=== PATIENT | female | born 1990 | race American Indian/Alaskan Native ===

== ENCOUNTER 2018-10-17 14:27 | Emergency (ER) | payer SELFPAY ==
[2018-10-17 14:34] VITALS: BP 174/112
--- NOTE | 2018-10-17 14:41 | Emergency Department Report ---
- General Chief complaint: Skin/Abscess/Foreign Body Stated complaint: BITE ON STOMACH Time Seen by Provider: 10/17/18 14:35 Source: patient Mode of arrival: Ambulatory Limitations: No Limitations - History of Present Illness Initial comments: C/O POSSIBLE BITE TO ABDOMEN WHAT WAS RED AND NOW WORSENING. TENDER TO TOUCH. NO FEVER MD complaint: insect bite/sting, discoloration -: Gradual Tetanus Up to Date: no Location: generalized Severity: mild Quality: aching, dull Consistency: constant Improves with: none Worsens with: none Treatments Prior to Arrival: none - Related Data Home Medications Medication Instructions Recorded Confirmed Last Taken Acetaminophen/Codeine [Tylenol #3] 1 tab PO Q4HR PRN 11/03/13 11/03/13 Unknown Previous Rx's Medication Instructions Recorded Last Taken Type Nitrofurantoin Foster/M-Cryst 100 mg PO Q12HR 14 Days capsule 11/04/13 Unknown Rx [Macrobid] Ketorolac [Toradol] 10 mg PO Q6H PRN #15 tablet 10/17/18 Unknown Rx Sulfamethoxazole/Trimethoprim 2 each PO BID #40 tablet 10/17/18 Unknown Rx [Bactrim DS TAB] cephALEXin [Keflex] 500 mg PO Q6HR #40 capsule 10/17/18 Unknown Rx Allergies Allergy/AdvReac Type Severity Reaction Status Date / Time acetaminophen [From Percocet] AdvReac Swelling Verified 10/17/18 14:28 hydrocodone bitartrate AdvReac Swelling Verified 10/17/18 14:28 [From Vicodin] oxycodone HCl [From Percocet] AdvReac Swelling Verified 10/17/18 14:28 Abscess Boil HPI - HPI Chief Complaint: Skin/Abscess/Foreign Body Stated Complaint: BITE ON STOMACH Time Seen by Provider: 10/17/18 14:35 Home Medications: Home Medications Medication Instructions Recorded Confirmed Last Taken Acetaminophen/Codeine [Tylenol #3] 1 tab PO Q4HR PRN 11/03/13 11/03/13 Unknown Previous Rx's Medication Instructions Recorded Last Taken Type Nitrofurantoin Foster/M-Cryst 100 mg PO Q12HR 14 Days capsule 11/04/13 Unknown Rx [Macrobid] Ketorolac [Toradol] 10 mg PO Q6H PRN #15 tablet 10/17/18 Unknown Rx Sulfamethoxazole/Trimethoprim 2 each PO BID #40 tablet 10/17/18 Unknown Rx [Bactrim DS TAB] cephALEXin [Keflex] 500 mg PO Q6HR #40 capsule 10/17/18 Unknown Rx Allergies/Adverse Reactions: Allergies Allergy/AdvReac Type Severity Reaction Status Date / Time acetaminophen [From Percocet] AdvReac Swelling Verified 10/17/18 14:28 hydrocodone bitartrate AdvReac Swelling Verified 10/17/18 14:28 [From Vicodin] oxycodone HCl [From Percocet] AdvReac Swelling Verified 10/17/18 14:28 ED Review of Systems ROS: Stated complaint: BITE ON STOMACH Other details as noted in HPI Constitutional: denies: chills, fever Eyes: denies: eye pain, eye discharge, vision change ENT: denies: ear pain, throat pain Respiratory: denies: cough, shortness of breath, wheezing Cardiovascular: denies: chest pain, palpitations Endocrine: no symptoms reported Gastrointestinal: denies: abdominal pain, nausea, diarrhea Genitourinary: denies: urgency, dysuria, discharge Musculoskeletal: denies: back pain, joint swelling, arthralgia Skin: change in color. denies: rash, lesions Neurological: denies: headache, weakness, paresthesias Psychiatric: denies: anxiety, depression Hematological/Lymphatic: denies: easy bleeding, easy bruising ED Past Medical Hx - Past Medical History Hx Psychiatric Treatment: Yes (Anxiety) Hx Asthma: Yes Additional medical history: Crohn's disease - Surgical History Past Surgical History?: No - Social History Smoking Status: Never Smoker Substance Use Type: None - Medications Home Medications: Home Medications Medication Instructions Recorded Confirmed Last Taken Type Acetaminophen/Codeine [Tylenol #3] 1 tab PO Q4HR PRN 11/03/13 11/03/13 Unknown History Nitrofurantoin Foster/M-Cryst 100 mg PO Q12HR 14 Days capsule 11/04/13 Unknown Rx [Macrobid] Ketorolac [Toradol] 10 mg PO Q6H PRN #15 tablet 10/17/18 Unknown Rx Sulfamethoxazole/Trimethoprim 2 each PO BID #40 tablet 10/17/18 Unknown Rx [Bactrim DS TAB] cephALEXin [Keflex] 500 mg PO Q6HR #40 capsule 10/17/18 Unknown Rx ED Physical Exam - General Limitations: No Limitations General appearance: alert, in no apparent distress - Head Head exam: Present: atraumatic, normocephalic - Eye Eye exam: Present: normal appearance - ENT ENT exam: Present: mucous membranes moist - Neck Neck exam: Present: normal inspection - Respiratory Respiratory exam: Present: normal lung sounds bilaterally. Absent: respiratory distress - Cardiovascular Cardiovascular Exam: Present: regular rate, normal rhythm. Absent: systolic murmur, diastolic murmur, rubs, gallop - GI/Abdominal GI/Abdominal exam: Present: soft, normal bowel sounds - Extremities Exam Extremities exam: Present: normal inspection - Back Exam Back exam: Present: normal inspection - Neurological Exam Neurological exam: Present: alert, oriented X3, CN II-XII intact - Psychiatric Psychiatric exam: Present: normal affect, normal mood - Skin Skin exam: Present: warm, dry, intact, erythema, other (NO LAD NOTED. NO DISCHARGE). Absent: rash - Expanded Skin Exam Expanded Description of rash: Present: tenderness, erythematous, swelling. Absent: blisters, bullous, petechial, discharge, fluctuant, indurated 1 - CELLULITIS. NO LYMPHANGITIS. NO FLUCUTANCE. NO ABSCESS NOTED ED Course Vital Signs 10/17/18 14:32 Temperature 98.5 F Pulse Rate 101 H Respiratory 16 Rate Blood Pressure 174/112 [Left] O2 Sat by Pulse 99 Oximetry Critical care attestation.: If time is entered above; I have spent that time in minutes in the direct care of this critically ill patient, excluding procedure time. ED Disposition Clinical Impression: Abdominal wall cellulitis Disposition: DC-01 TO HOME OR SELFCARE Is pt being admited?: No Does the pt Need Aspirin: No Condition: Stable Instructions: Cellulitis (ED) Prescriptions: Sulfamethoxazole/Trimethoprim [Bactrim DS TAB] 2 each PO BID #40 tablet cephALEXin [Keflex] 500 mg PO Q6HR #40 capsule Ketorolac [Toradol] 10 mg PO Q6H PRN #15 tablet PRN Reason: Pain Referrals: [facility] [Provider Group] - 2-3 Days (WOUND RECHECK IN 48 HOURS)
== END 2018-10-17 15:02 | disposition home or self-care (01) ==
LOC: ED 14:27
DX: L03.311 Cellulitis of abdominal wall (principal); J45.909 Unspecified asthma, uncomplicated; F41.9 Anxiety disorder, unspecified; K50.90 Crohn's disease, unspecified, without complications; Z79.899 Other long term (current) drug therapy; Z88.1 Allergy status to other antibiotic agents; Z88.6 Allergy status to analgesic agent
CPT/HCPCS: 99282

== ENCOUNTER 2018-10-19 23:15 | Emergency (ER) | payer SELFPAY ==
[2018-10-20] MEDS ORDERED: MORPHINE IV ONE (00:50)
[2018-10-20] MEDS ORDERED: CLEOCIN 900 MG/50 mL 900 MG/50 ML BAG IV ONE (00:50)
[2018-10-20] MEDS ORDERED: ZOFRAN IV ONE (00:51)
[2018-10-20 01:35] LABS: Hematocrit 33.7 % (30.3-42.9); Hemoglobin 11.1 gm/dl (10.1-14.3); Mean Corpuscular HGB Conc 33 % (30-34); Mean Corpuscular Volume 83 fl (79-97); Platelet Count 216 K/mm3 (140-440); Red Blood Count 4.04 M/mm3 (3.65-5.03); Red Cell Distribution Width 15.4 % (13.2-15.2)
[2018-10-20 02:13] LABS: Alanine Aminotransferase 14 units/L (7-56); Albumin 3.6 g/dL (3.9-5); BUN/Creatinine Ratio 9; Blood Urea Nitrogen 10 mg/dL (7-17); Calcium 9.3 mg/dL (8.4-10.2); Hemolysis Index 1
--- NOTE | 2018-10-20 03:50 | Emergency Department Report ---
ED General Adult HPI - General Chief complaint: Laceration/Recheck/Suture Stated complaint: BITE ON STOMACH BLEEDING Time Seen by Provider: 10/20/18 00:40 Source: patient Mode of arrival: Ambulatory Limitations: No Limitations - History of Present Illness Initial comments: Patient is a 28-year-old -[place]ish female with a history of chronic obesity and Crohn's disease who presents to the ED with acute onset of persistent pain and swollen erythematous maculopapular nonfluctuant periumbilical rash with purulent discharge from the last week. Patient was initially evaluated in this lady is ago and started on Bactrim DS and Keflex. Patient states that the pain, swelling and redness has spread from the regional small bowel maculopapular rash. Patient states that there began to drain the purulent discharge with malodorous smell about 12 hours ago. Patient states that she has not had any fever, chills, nausea, vomiting, dizziness, headache, chest pain, diarrhea, abdominal pain and shortness of breath. MD Complaint: erythematous rash on abdominal wall with purulent discharge -: Sudden, week(s) (1) Location: abdomen Radiation: periumbillical Severity scale (0 -10): 7 Quality: burning, aching, sharp, constant Consistency: constant Improves with: none Worsens with: none Associated Symptoms: denies other symptoms, malaise, rash. denies: confusion, chest pain, cough, diaphoresis, headaches, loss of appetite, nausea/vomiting, seizure, shortness of breath, syncope, weakness Treatments Prior to Arrival: none - Related Data Previous Rx's Medication Instructions Recorded Last Taken Type Nitrofurantoin Jay/M-Cryst 100 mg PO Q12HR 14 Days capsule 11/04/13 Unknown Rx [Macrobid] Ketorolac [Toradol] 10 mg PO Q6H PRN #15 tablet 10/17/18 Unknown Rx Sulfamethoxazole/Trimethoprim 2 each PO BID #40 tablet 10/17/18 Unknown Rx [Bactrim DS TAB] cephALEXin [Keflex] 500 mg PO Q6HR #40 capsule 10/17/18 Unknown Rx Acetaminophen/Codeine [Tylenol 1 tab PO Q4HR PRN #15 tablet 10/20/18 Unknown Rx /Codeine # 3 tab] Clindamycin [Clindamycin CAP] 300 mg PO Q8HR #60 capsule 10/20/18 Unknown Rx Fluconazole [Diflucan TAB] 150 mg PO ONCE #1 tablet 10/20/18 Unknown Rx Ibuprofen [Motrin] 800 mg PO Q8HR PRN #20 tablet 10/20/18 Unknown Rx Allergies Allergy/AdvReac Type Severity Reaction Status Date / Time acetaminophen [From Percocet] AdvReac Swelling Verified 10/17/18 14:28 hydrocodone bitartrate AdvReac Swelling Verified 10/17/18 14:28 [From Vicodin] oxycodone HCl [From Percocet] AdvReac Swelling Verified 10/17/18 14:28 ED Review of Systems ROS: Stated complaint: BITE ON STOMACH BLEEDING Other details as noted in HPI Comment: All other systems reviewed and negative Constitutional: denies: chills, fever, malaise, weakness Eyes: denies: eye pain, eye discharge, vision change ENT: denies: ear pain, throat pain, dental pain, hearing loss, congestion Respiratory: denies: cough, shortness of breath, SOB with exertion, wheezing Cardiovascular: denies: chest pain, palpitations Endocrine: no symptoms reported Gastrointestinal: abdominal pain (abdominal wall due to erythematous rash with purulent discharge). denies: nausea, diarrhea, hematemesis, hematochezia Genitourinary: denies: urgency, dysuria, frequency, discharge Musculoskeletal: denies: back pain, joint swelling, arthralgia Skin: rash (erythematous maculopapular nonfluctuant rash on abdominal wall in periumbilical area), change in color (erythematous maculopapular nonfluctuant rash with purulent discharge), pruritus. denies: lesions Neurological: denies: headache, weakness, paresthesias Psychiatric: denies: anxiety, depression Hematological/Lymphatic: denies: easy bleeding, easy bruising ED Past Medical Hx - Past Medical History Previous Medical History?: Yes Hx Psychiatric Treatment: Yes (Anxiety) Hx Asthma: Yes Additional medical history: Crohn's disease, Morbid Obesity - Surgical History Past Surgical History?: No - Social History Smoking Status: Never Smoker Substance Use Type: None - Medications Home Medications: Home Medications Medication Instructions Recorded Confirmed Last Taken Type Nitrofurantoin Jay/M-Cryst 100 mg PO Q12HR 14 Days capsule 11/04/13 Unknown Rx [Macrobid] Ketorolac [Toradol] 10 mg PO Q6H PRN #15 tablet 10/17/18 Unknown Rx Sulfamethoxazole/Trimethoprim 2 each PO BID #40 tablet 10/17/18 Unknown Rx [Bactrim DS TAB] cephALEXin [Keflex] 500 mg PO Q6HR #40 capsule 10/17/18 Unknown Rx Acetaminophen/Codeine [Tylenol 1 tab PO Q4HR PRN #15 tablet 10/20/18 Unknown Rx /Codeine # 3 tab] Clindamycin [Clindamycin CAP] 300 mg PO Q8HR #60 capsule 10/20/18 Unknown Rx Fluconazole [Diflucan TAB] 150 mg PO ONCE #1 tablet 10/20/18 Unknown Rx Ibuprofen [Motrin] 800 mg PO Q8HR PRN #20 tablet 10/20/18 Unknown Rx ED Physical Exam - General Limitations: No Limitations General appearance: alert, in no apparent distress - Head Head exam: Present: atraumatic, normocephalic, normal inspection - Eye Eye exam: Present: normal appearance, PERRL, EOMI. Absent: scleral icterus, conjunctival injection, nystagmus, periorbital swelling, periorbital tenderness Pupils: Present: normal accommodation - ENT ENT exam: Present: normal exam, normal orophraynx, mucous membranes moist, TM's normal bilaterally, normal external ear exam - Neck Neck exam: Present: normal inspection, full ROM - Respiratory Respiratory exam: Present: normal lung sounds bilaterally. Absent: respiratory distress, wheezes, rales, chest wall tenderness, accessory muscle use, decreased breath sounds, prolonged expiratory - Cardiovascular Cardiovascular Exam: Present: regular rate, tachycardia, normal heart sounds. Absent: systolic murmur, diastolic murmur, rubs, gallop - GI/Abdominal GI/Abdominal exam: Present: soft, tenderness (periumbilical area due to erythematous maculopapular nonfluctuant rash with purulent discharge), normal bowel sounds. Absent: hyperactive bowel sounds, hypoactive bowel sounds, organomegaly - Extremities Exam Extremities exam: Present: normal inspection - Back Exam Back exam: Present: normal inspection - Neurological Exam Neurological exam: Present: alert, oriented X3 - Psychiatric Psychiatric exam: Present: normal affect, normal mood - Skin Skin exam: Present: warm, dry, intact, normal color. Absent: rash ED Course Vital Signs 10/19/18 23:24 Temperature 99.0 F Pulse Rate 102 H Respiratory 18 Rate Blood Pressure 131/85 O2 Sat by Pulse 95 Oximetry - Reevaluation(s) Reevaluation #1: 10/20/18 05:12 Patient is alert and oriented 3 and is not in any distress but slightly tachycardic into the cheek. Laboratory studies were initiated, and the results revealed and remarkable for mild acute leukocytosis of 11,400. The rest of the lab results are unremarkable. Patient received clindamycin 900 mg IV 1 with pain medications. On reevaluation, patient's pain is well controlled, and the wound was cleaned thoroughly and debrided with normal saline, and dressed appropriately with 4 x 4 gauze and Tegaderm. The patient was discharged home with a new prescription of clindamycin 300 mg every 8 hours. Patient advised to return to the ED immediately if symptoms get worse, otherwise follow-up with a high primary care physician in 7-10 days for reevaluation. 10/20/18 05:13 ED Medical Decision Making - Lab Data Result diagrams: 10/20/18 01:16 10/20/18 01:16 - Medical Decision Making Patient is alert and oriented 3 and is not in any distress but slightly tachycardic into the cheek. Laboratory studies were initiated, and the results revealed and remarkable for mild acute leukocytosis of 11,400. The rest of the lab results are unremarkable. Patient received clindamycin 900 mg IV 1 with pain medications. On reevaluation, patient's pain is well controlled, and the wound was cleaned thoroughly and debrided with normal saline, and dressed appropriately with 4 x 4 gauze and Tegaderm. The patient was discharged home with a new prescription of clindamycin 300 mg every 8 hours. Patient advised to return to the ED immediately if symptoms get worse, otherwise follow-up with a high primary care physician in 7-10 days for reevaluation. - Differential Diagnosis cellulitis of abdominal wall; abscess of abdominal wall Critical care attestation.: If time is entered above; I have spent that time in minutes in the direct care of this critically ill patient, excluding procedure time. ED Disposition Clinical Impression: Abdominal wall cellulitis Disposition: DC-01 TO HOME OR SELFCARE Is pt being admited?: No Does the pt Need Aspirin: No Condition: Stable Instructions: Cellulitis (ED), Abscess (ED) Additional Instructions: Take medications with food, drink plenty of fluids and follow up with your primary care physician in 7-10 days for reevaluation. Return to the ED immediately if symptoms get worse Prescriptions: Clindamycin [Clindamycin CAP] 300 mg PO Q8HR #60 capsule Fluconazole [Diflucan TAB] 150 mg PO ONCE #1 tablet Ibuprofen [Motrin] 800 mg PO Q8HR PRN #20 tablet PRN Reason: Pain , Severe (7-10) Acetaminophen/Codeine [Tylenol /Codeine # 3 tab] 1 tab PO Q4HR PRN #15 tablet PRN Reason: Pain Referrals: JAQUI GRANADOS MD [Primary Care Provider] - 3-5 Days Forms: Work/School Release Form(ED) Time of Disposition: 04:04 Print Language: GREENLANDIC
[2018-10-20 05:18] VITALS: BP 119/68
== END 2018-10-20 04:35 | disposition home or self-care (01) ==
LOC: ED 23:15
DX: L03.311 Cellulitis of abdominal wall (principal); F41.9 Anxiety disorder, unspecified; J45.909 Unspecified asthma, uncomplicated; K50.90 Crohn's disease, unspecified, without complications; E66.01 Morbid (severe) obesity due to excess calories; Z68.43 Body mass index [BMI] 50.0-59.9, adult; Z88.6 Allergy status to analgesic agent; Z79.899 Other long term (current) drug therapy
CPT/HCPCS: 36415; 80053; 82140; 83690; 85027; 96365; 96375; 99283; J2270; J2405

== ENCOUNTER 2018-10-21 14:15 | Emergency (ER) | payer SELFPAY ==
--- NOTE | 2018-10-21 14:28 | Emergency Department Report ---
Blank Doc - Documentation Documentation: This is a 28-year-old female that presents with generlized weakness. Was seen yesterday for abscess and was given antibiosis. This initial assessment/diagnostic orders/clinical plan/treatment(s) is/are subject to change based on patient's health status, clinical progression and re- assessment by fellow clinical providers in the ED. Further treatment and workup at subsequent clinical providers discretion. Patient/guardians urged not to elope from the ED as their condition may be serious if not clinically assessed and managed. Initial orders include: 1- Patient sent to [facility] for further evaluation and treatment 2- labs
[2018-10-21 14:57] LABS: Basophils # (Auto) 0.1 K/mm3 (0.0-0.1); Basophils % (Auto) 0.8 % (0.0-1.8); Eosinophils # (Auto) 0.1 K/mm3 (0.0-0.4); Eosinophils % (Auto) 1.5 % (0.0-4.3); Hematocrit 34.2 % (30.3-42.9); Hemoglobin 11.3 gm/dl (10.1-14.3); Lymphocytes # (Auto) 2.5 K/mm3 (1.2-5.4); Lymphocytes % (Auto) 33.6 % (13.4-35.0); Mean Corpuscular HGB Conc 33 % (30-34); Mean Corpuscular Volume 83 fl (79-97); Monocytes # (Auto) 0.8 K/mm3 (0.0-0.8); Monocytes % (Auto) 10.9 % (0.0-7.3); Platelet Count 232 K/mm3 (140-440); Red Blood Count 4.12 M/mm3 (3.65-5.03); Red Cell Distribution Width 15.3 % (13.2-15.2)
[2018-10-21 15:15] LABS: BUN/Creatinine Ratio 8; Blood Urea Nitrogen 7 mg/dL (7-17); Calcium 9.2 mg/dL (8.4-10.2); Hemolysis Index 1
[2018-10-21] MEDS ORDERED: ZOFRAN IV ONE ×2 (17:14→20:15)
[2018-10-21] MEDS ORDERED: NACL 0.9% 1000 ML 1,000 ML IV ONE (17:14)
--- NOTE | 2018-10-21 17:23 | Emergency Department Report ---
- General Chief Complaint: Skin/Abscess/Foreign Body Stated Complaint: ABD PAIN/NAUSEA/WEAKNESS Time Seen by Provider: 10/21/18 14:27 Source: patient Mode of arrival: Ambulatory Limitations: No Limitations - History of Present Illness Initial Comments: Patient was fairly active female with a history of abdominal wall abscess symptoms seen and tx'd in the ED 3 for same since 10/17/2018 patient has been prescribed Keflex and Bactrim describes no drainable states Bactrim and clin damycin received last night made her have nausea vomiting there is no hives or shortness of breath no wheezing no chest pain states symptoms outpatient and weakness to this point states that this was something done Onset/Timin -: days(s) Location: abdomen (abdominal wall abscess ) Place: home Patient Tetanus UTD: Yes Context: other (abscess abd wall ) Associated Symptoms: pain, other (itching erythema ) - Related Data Previous Rx's Medication Instructions Recorded Last Taken Type Nitrofurantoin [place]/M-Cryst 100 mg PO Q12HR 14 Days capsule 11/04/13 Unknown Rx [Macrobid] Ketorolac [Toradol] 10 mg PO Q6H PRN #15 tablet 10/17/18 Unknown Rx Sulfamethoxazole/Trimethoprim 2 each PO BID #40 tablet 10/17/18 Unknown Rx [Bactrim DS TAB] cephALEXin [Keflex] 500 mg PO Q6HR #40 capsule 10/17/18 Unknown Rx Acetaminophen/Codeine [Tylenol 1 tab PO Q4HR PRN #15 tablet 10/20/18 Unknown Rx /Codeine # 3 tab] Clindamycin [Clindamycin CAP] 300 mg PO Q8HR #60 capsule 10/20/18 Unknown Rx Fluconazole [Diflucan TAB] 150 mg PO ONCE #1 tablet 10/20/18 Unknown Rx Ibuprofen [Motrin] 800 mg PO Q8HR PRN #20 tablet 10/20/18 Unknown Rx Clindamycin [Clindamycin CAP] 300 mg PO Q6H 10 Days #40 capsule 10/21/18 Unknown Rx traMADol [Ultram] 50 mg PO Q4HR PRN #12 tablet 10/21/18 Unknown Rx Allergies Allergy/AdvReac Type Severity Reaction Status Date / Time acetaminophen [From Percocet] AdvReac Swelling Verified 10/21/18 14:29 hydrocodone bitartrate AdvReac Swelling Verified 10/21/18 14:29 [From Vicodin] oxycodone HCl [From Percocet] AdvReac Swelling Verified 10/21/18 14:29 ED Review of Systems ROS: Stated complaint: ABD PAIN/NAUSEA/WEAKNESS Other details as noted in HPI Constitutional: malaise. denies: chills, fever Eyes: denies: eye pain, eye discharge, vision change ENT: denies: ear pain, throat pain Respiratory: no symptoms reported Cardiovascular: denies: chest pain, palpitations Endocrine: no symptoms reported Gastrointestinal: abdominal pain. denies: nausea, vomiting, diarrhea, constipation, hematemesis, melena, hematochezia Genitourinary: denies: urgency, dysuria, frequency, hematuria, discharge, dyspareunia Musculoskeletal: denies: back pain, joint swelling, arthralgia Skin: other (erythema pain abscess site). denies: rash, lesions Neurological: denies: headache, weakness, paresthesias Psychiatric: denies: anxiety, depression Hematological/Lymphatic: denies: easy bleeding, easy bruising ED Past Medical Hx - Past Medical History Previous Medical History?: Yes Hx Psychiatric Treatment: Yes (Anxiety) Hx Asthma: Yes Additional medical history: Crohn's disease, Morbid Obesity - Surgical History Past Surgical History?: No - Social History Smoking Status: Never Smoker Substance Use Type: None - Medications Home Medications: Home Medications Medication Instructions Recorded Confirmed Last Taken Type Nitrofurantoin [place]/M-Cryst 100 mg PO Q12HR 14 Days capsule 11/04/13 Unknown Rx [Macrobid] Ketorolac [Toradol] 10 mg PO Q6H PRN #15 tablet 10/17/18 Unknown Rx Sulfamethoxazole/Trimethoprim 2 each PO BID #40 tablet 10/17/18 Unknown Rx [Bactrim DS TAB] cephALEXin [Keflex] 500 mg PO Q6HR #40 capsule 10/17/18 Unknown Rx Acetaminophen/Codeine [Tylenol 1 tab PO Q4HR PRN #15 tablet 10/20/18 Unknown Rx /Codeine # 3 tab] Clindamycin [Clindamycin CAP] 300 mg PO Q8HR #60 capsule 10/20/18 Unknown Rx Fluconazole [Diflucan TAB] 150 mg PO ONCE #1 tablet 10/20/18 Unknown Rx Ibuprofen [Motrin] 800 mg PO Q8HR PRN #20 tablet 10/20/18 Unknown Rx Clindamycin [Clindamycin CAP] 300 mg PO Q6H 10 Days #40 capsule 10/21/18 Unknown Rx traMADol [Ultram] 50 mg PO Q4HR PRN #12 tablet 10/21/18 Unknown Rx ED Physical Exam - General Limitations: No Limitations General appearance: alert, in no apparent distress - Head Head exam: Present: atraumatic, normocephalic - Eye Eye exam: Present: normal appearance, PERRL, EOMI Pupils: Present: normal accommodation - ENT ENT exam: Present: mucous membranes moist - Neck Neck exam: Present: normal inspection, full ROM. Absent: tenderness, lymphadenopathy, thyromegaly - Respiratory Respiratory exam: Present: normal lung sounds bilaterally. Absent: respiratory distress, wheezes, stridor, chest wall tenderness - Cardiovascular Cardiovascular Exam: Present: regular rate, normal rhythm, normal heart sounds. Absent: systolic murmur, diastolic murmur, rubs, gallop - GI/Abdominal GI/Abdominal exam: Present: tenderness, guarding, normal bowel sounds, other (abscess sub umbillicus with surrounding erythema ). Absent: distended, rebound, rigid, bruit, hernia - Rectal Rectal exam: Present: deferred - External exam: Present: normal external exam - Extremities Exam Extremities exam: Present: normal inspection, full ROM, normal capillary refill - Back Exam Back exam: Present: normal inspection, full ROM. Absent: tenderness, CVA tenderness (R), CVA tenderness (L), muscle spasm, rash noted - Neurological Exam Neurological exam: Present: alert, oriented X3, CN II-XII intact, normal gait - Psychiatric Psychiatric exam: Present: normal affect, normal mood - Skin Skin exam: Present: warm ED Course Vital Signs 10/21/18 14:28 Temperature 98.8 F Pulse Rate 98 H Respiratory 22 Rate Blood Pressure 128/85 [Right] O2 Sat by Pulse 96 Oximetry ED Medical Decision Making - Lab Data Result diagrams: 10/21/18 14:40 10/21/18 14:40 - Radiology Data Radiology results: report reviewed, image reviewed Ordering Physician: AYAZ DE LA CRUZ NP Date of Service: 10/21/18 Procedure(s): CT abdomen pelvis w con Accession Number(s): [id number] cc: AYAZ DE LA CRUZ NP PROCEDURE: CT ABDOMEN PELVIS W CON TECHNIQUE: Computerized axial tomography of the abdomen and pelvis was performed after the IV injection of iodinated nonionic contrast. CT DOSE LENGTH PRODUCT: 1765.2 mGycm HISTORY: RLQ abd pain. STATES SOMETHING BIT HER THERE IN STOMACH BUT UNSURE WHAT. FINDINGS: Contrast-enhanced CT of the abdomen and pelvis was performed and data was reformatted in the sagittal and coronal planes. The heart is normal in size. The lung bases appear clear. ABDOMEN: There is fatty infiltration of the liver without focal hepatic lesion. The spleen, adrenal glands, pancreas, gallbladder are unremarkable. There is no renal or ureteral calculus. There is no small or large bowel obstruction. Pelvis: There is a normal appendix. There is no evidence of diverticulitis. There is a posterior uterine leiomyoma, 6.3 cm. The urinary bladder is within normal limits. There is some subcutaneous stranding in the fat just to the right the umbilicus, axial image 125 which could represent cellulitis or inflammatory reaction. There is no abscess. IMPRESSION: ABDOMEN: Fatty infiltration of the liver Pelvis: Normal appendix Subcutaneous stranding in fat to the right the umbilicus which could represent cellulitis or inflammatory stranding This document is electronically signed by Daniel Kim MD., October 21 2018 08:01:07 PM ET Transcribed By: PADILLA Dictated By: DANIEL KIM MD Electronically Authenticated By: DANIEL KIM MD Signed Date/Time: 10/21/182002 DD/ 47 TD/TT: 10/21/181947 - Medical Decision Making ct abd pelvis, mild cellulitis abd, fibroid urterus , plan continue with clindamycin po, ultram prn pain follow up with general surgery amor , follow up with pcp in 2-3 days given referral to both , pt is currently a/o x 3 ambulatory wit steady gait, tolerating po intake with nad nontoxic appearing. pain lever is 2/10 Critical care attestation.: If time is entered above; I have spent that time in minutes in the direct care of this critically ill patient, excluding procedure time. ED Disposition Clinical Impression: Cellulitis, abdominal wall Disposition: DC-01 TO HOME OR SELFCARE Is pt being admited?: No Does the pt Need Aspirin: No Condition: Stable Instructions: Cellulitis (ED) Prescriptions: Clindamycin [Clindamycin CAP] 300 mg PO Q6H 10 Days #40 capsule traMADol [Ultram] 50 mg PO Q4HR PRN #12 tablet PRN Reason: Pain Referrals: SARABJIT WOLF MD [Staff Physician] - 2-3 Days LYFORD LUIS CARLOS KITCHEN MD [Primary Care Provider] - 2-3 Days Forms: Work/School Release Form(ED) Time of Disposition: 20:20
[2018-10-21 19:00] LABS: Alanine Aminotransferase 12 units/L (7-56); Albumin 3.3 g/dL (3.9-5)
[2018-10-21 19:04] LABS: Bilirubin,Direct < 0.2 mg/dL (0-0.2)
--- NOTE | 2018-10-21 20:03 | Cat Scan Report ---
PROCEDURE: CT ABDOMEN PELVIS W CON TECHNIQUE: Computerized axial tomography of the abdomen and pelvis was performed after the IV inject ion of iodinated nonionic contrast. CT DOSE LENGTH PRODUCT: 1765.2 mGycm HISTORY: RLQ abd pain. STATES SOMETHING BIT HER THERE IN STOMACH BUT UNSURE WHAT. FINDINGS: Contrast-enhanced CT of the abdomen and pelvis was performed and data was reformatted in th e sagittal and coronal planes. The heart is normal in size. The lung bases appear clear. ABDOMEN: There is fatty infiltration of the liver without focal hepatic lesion. The spleen, adrenal glands, pancreas, gallbladder are unremarkable. There is no renal or ureteral jose culus. There is no small or large bowel obstruction. Pelvis: There is a normal appendix. There is no evidence of diverticulitis. There is a posterior uterine leiomyoma, 6.3 cm. The urinary bladder is within normal limits. There is some subcutaneous stranding in the fat just to the right the umbilicus, axial image 125 whic h could represent cellulitis or inflammatory reaction. There is no abscess. IMPRESSION: ABDOMEN: Fatty infiltration of the liver Pelvis: Normal appendix Subcutaneous stranding in fat to the right the umbilicus which could represent cellulitis or inflamma tory stranding This document is electronically signed by Daniel Kim MD., October 21 2018 08:01:07 PM ET
[2018-10-21] MEDS ORDERED: TORADOL IV ONE (20:15)
[2018-10-21 20:55] VITALS: BP 129/81
== END 2018-10-21 20:55 | disposition home or self-care (01) ==
LOC: ED 14:15
DX: L03.311 Cellulitis of abdominal wall (principal); F41.9 Anxiety disorder, unspecified; J45.909 Unspecified asthma, uncomplicated; E66.01 Morbid (severe) obesity due to excess calories; Z88.6 Allergy status to analgesic agent; Z88.5 Allergy status to narcotic agent
CPT/HCPCS: 36415; 74177; 80048; 80076; 82140; 84703; 85025; 96361; 96374; 96375; 96376; 99284; J1885; J2405; J7030; Q9967

== ENCOUNTER 2019-01-04 12:06 | Emergency (ER) | payer SELFPAY ==
--- NOTE | 2019-01-04 12:41 | Event Note ---
ED Screening Note ED Screening Note: PMH ASTHMA RX NEB R EAR PAIN AND R FACE PAIN NO DENTAL PAIN DID NOT SEE PCP 8-18 LMP This initial assessment/diagnostic orders/clinical plan/treatment(s) is/are subject to change based on patients health status, clinical progression and re- assessment by fellow clinical providers in the ED. Further treatment and workup at subsequent clinical providers discretion. Patient/guardian urged not to elope from the ED as their condition may be serious if not clinically assessed and managed. Initial orders include: ACC
[2019-01-04 12:42] VITALS: BP 159/96
[2019-01-04] MEDS ORDERED: IBUPROFEN PO ONE (12:59)
--- NOTE | 2019-01-04 14:15 | Emergency Department Report ---
ED ENT HPI - General Chief complaint: Earache Stated complaint: EARACHE/HEADACHE Time Seen by Provider: 01/04/19 12:40 Source: patient Mode of arrival: Ambulatory Limitations: No Limitations - History of Present Illness Initial comments: 28-year-old -[place] female presents to the emergency room complaining of right ear pain for 1 week. She denies any additional problems. Patient states that the pain is more on the cartilage of the ear. She denies any drainage from the ear. Patient denies any trauma to the ear. MD complaint: ear pain Onset/Timin -: week(s) Severity scale (0 -10): 7 Quality: aching Consistency: intermittent Improves with: none Worsens with: none - Related Data Previous Rx's Medication Instructions Recorded Last Taken Type Nitrofurantoin [place]/M-Cryst 100 mg PO Q12HR 14 Days capsule 11/04/13 Unknown Rx [Macrobid] Ketorolac [Toradol] 10 mg PO Q6H PRN #15 tablet 10/17/18 Unknown Rx Sulfamethoxazole/Trimethoprim 2 each PO BID #40 tablet 10/17/18 Unknown Rx [Bactrim DS TAB] cephALEXin [Keflex] 500 mg PO Q6HR #40 capsule 10/17/18 Unknown Rx Acetaminophen/Codeine [Tylenol 1 tab PO Q4HR PRN #15 tablet 10/20/18 Unknown Rx /Codeine # 3 tab] Clindamycin [Clindamycin CAP] 300 mg PO Q8HR #60 capsule 10/20/18 Unknown Rx Fluconazole [Diflucan TAB] 150 mg PO ONCE #1 tablet 10/20/18 Unknown Rx Ibuprofen [Motrin] 800 mg PO Q8HR PRN #20 tablet 10/20/18 Unknown Rx Clindamycin [Clindamycin CAP] 300 mg PO Q6H 10 Days #40 capsule 10/21/18 Unknown Rx traMADol [Ultram] 50 mg PO Q4HR PRN #12 tablet 10/21/18 Unknown Rx Allergies Allergy/AdvReac Type Severity Reaction Status Date / Time acetaminophen [From Percocet] AdvReac Swelling Verified 10/21/18 14:29 hydrocodone bitartrate AdvReac Swelling Verified 10/21/18 14:29 [From Vicodin] oxycodone HCl [From Percocet] AdvReac Swelling Verified 10/21/18 14:29 ED Dental HPI - General Chief complaint: Earache Stated complaint: EARACHE/HEADACHE Time Seen by Provider: 01/04/19 12:40 Source: patient Mode of arrival: Ambulatory Limitations: No Limitations - Related Data Previous Rx's Medication Instructions Recorded Last Taken Type Nitrofurantoin [place]/M-Cryst 100 mg PO Q12HR 14 Days capsule 11/04/13 Unknown Rx [Macrobid] Ketorolac [Toradol] 10 mg PO Q6H PRN #15 tablet 10/17/18 Unknown Rx Sulfamethoxazole/Trimethoprim 2 each PO BID #40 tablet 10/17/18 Unknown Rx [Bactrim DS TAB] cephALEXin [Keflex] 500 mg PO Q6HR #40 capsule 10/17/18 Unknown Rx Acetaminophen/Codeine [Tylenol 1 tab PO Q4HR PRN #15 tablet 10/20/18 Unknown Rx /Codeine # 3 tab] Clindamycin [Clindamycin CAP] 300 mg PO Q8HR #60 capsule 10/20/18 Unknown Rx Fluconazole [Diflucan TAB] 150 mg PO ONCE #1 tablet 10/20/18 Unknown Rx Ibuprofen [Motrin] 800 mg PO Q8HR PRN #20 tablet 10/20/18 Unknown Rx Clindamycin [Clindamycin CAP] 300 mg PO Q6H 10 Days #40 capsule 10/21/18 Unknown Rx traMADol [Ultram] 50 mg PO Q4HR PRN #12 tablet 10/21/18 Unknown Rx Allergies Allergy/AdvReac Type Severity Reaction Status Date / Time acetaminophen [From Percocet] AdvReac Swelling Verified 10/21/18 14:29 hydrocodone bitartrate AdvReac Swelling Verified 10/21/18 14:29 [From Vicodin] oxycodone HCl [From Percocet] AdvReac Swelling Verified 10/21/18 14:29 ED Review of Systems ROS: Stated complaint: EARACHE/HEADACHE Other details as noted in HPI Comment: All other systems reviewed and negative ED Past Medical Hx - Past Medical History Previous Medical History?: Yes Hx Psychiatric Treatment: Yes (Anxiety) Hx Asthma: Yes Additional medical history: Crohn's disease, Morbid Obesity - Surgical History Past Surgical History?: No - Social History Smoking Status: Never Smoker Substance Use Type: None - Medications Home Medications: Home Medications Medication Instructions Recorded Confirmed Last Taken Type Nitrofurantoin [place]/M-Cryst 100 mg PO Q12HR 14 Days capsule 11/04/13 Unknown Rx [Macrobid] Ketorolac [Toradol] 10 mg PO Q6H PRN #15 tablet 10/17/18 Unknown Rx Sulfamethoxazole/Trimethoprim 2 each PO BID #40 tablet 10/17/18 Unknown Rx [Bactrim DS TAB] cephALEXin [Keflex] 500 mg PO Q6HR #40 capsule 10/17/18 Unknown Rx Acetaminophen/Codeine [Tylenol 1 tab PO Q4HR PRN #15 tablet 10/20/18 Unknown Rx /Codeine # 3 tab] Clindamycin [Clindamycin CAP] 300 mg PO Q8HR #60 capsule 10/20/18 Unknown Rx Fluconazole [Diflucan TAB] 150 mg PO ONCE #1 tablet 10/20/18 Unknown Rx Ibuprofen [Motrin] 800 mg PO Q8HR PRN #20 tablet 10/20/18 Unknown Rx Clindamycin [Clindamycin CAP] 300 mg PO Q6H 10 Days #40 capsule 10/21/18 Unknown Rx traMADol [Ultram] 50 mg PO Q4HR PRN #12 tablet 10/21/18 Unknown Rx ED Physical Exam - General Limitations: No Limitations General appearance: alert, in no apparent distress - Head Head exam: Present: atraumatic, normocephalic - Eye Eye exam: Present: normal appearance - ENT ENT exam: Present: mucous membranes moist - Expanded ENT Exam Expanded Ear exam: Present: other (tenderness to the right cartilage of the ear). Absent: auricular trauma - Neurological Exam Neurological exam: Present: alert, oriented X3, normal gait - Psychiatric Psychiatric exam: Present: normal affect, normal mood - Skin Skin exam: Present: warm, dry, intact, normal color. Absent: rash ED Course Vital Signs 01/04/19 12:40 Temperature 98.5 F Pulse Rate 84 Respiratory 18 Rate Blood Pressure 159/96 O2 Sat by Pulse 97 Oximetry ED Medical Decision Making - Medical Decision Making 28-year-old -[place] female presents to the emergency room complaining of right ear pain for 1 week. She denies any additional problems. Patient states that the pain is more on the cartilage of the ear. She denies any drainage from the ear. Patient denies any trauma to the ear. He can take ibuprofen as needed for pain. Follow up with her primary care provider for symptoms persist or gets worse. Also recommend following up with ear nose and throat provider. Critical care attestation.: If time is entered above; I have spent that time in minutes in the direct care of this critically ill patient, excluding procedure time. ED Disposition Clinical Impression: Right ear pain Disposition: DC-01 TO HOME OR SELFCARE Is pt being admited?: No Does the pt Need Aspirin: No Condition: Stable Additional Instructions: Ibuprofen as needed for pain management. Follow up with your primary care provider for ear nose and throat provider if symptoms persist or gets worse. Referrals: OREN ANUGIANO MD [Staff Physician] - 3-5 Days Forms: Work/School Release Form(ED)
== END 2019-01-04 14:26 | disposition home or self-care (01) ==
LOC: ED 12:06
DX: H92.01 Otalgia, right ear (principal); F41.9 Anxiety disorder, unspecified; J45.909 Unspecified asthma, uncomplicated; E66.01 Morbid (severe) obesity due to excess calories; Z68.43 Body mass index [BMI] 50.0-59.9, adult; Z88.6 Allergy status to analgesic agent; Z88.1 Allergy status to other antibiotic agents; Z79.899 Other long term (current) drug therapy
CPT/HCPCS: 99282

== ENCOUNTER 2020-10-11 06:53 | Emergency (ER) | payer SELFPAY ==
[2020-10-11 07:47] VITALS: BP 171/110
[2020-10-11] MEDS ORDERED: IBUPROFEN 800 MG TAB PO ONE (08:08)
--- NOTE | 2020-10-11 08:39 | Emergency Department Report ---
ED ENT HPI - General Chief complaint: Dental/Oral Stated complaint: TOOTH ACHE Time Seen by Provider: 10/11/20 07:46 Source: patient Mode of arrival: Ambulatory Limitations: No Limitations - History of Present Illness Initial comments: This is a 30-year-old female nontoxic, well nourished in appearance, no acute signs of distress presents to the ED with c/o of left upper toothache 3 weeks. Patient denies following up with a dentist. Patient describes toothache as aching level of 8 out of 10. Patient denies any facial swelling. Patient denies any numbness, tingling, fever, chills, headache, stiff neck, abdominal pain, chest pain, shortness of breath. Patient stated allergies to acetaminophen, hydrocodone, and oxycodone. Patient stated was told that she has prehypertension and is on a diet modification but denies taking any blood pressure medication. MD complaint: tooth pain -: week(s) Location: tooth # 1 - Pain here Severity: mild Severity scale (0 -10): 8 Quality: aching Consistency: constant Improves with: none Worsens with: none Context- Dental: history of dental caries, poor dental care Associated Symptoms: gum swelling, toothache. denies: fever, cough, pain with swallowing, sore throat, tinnitus, hearing loss, discharge from ear, rhinorrhea - Related Data Previous Rx's Medication Instructions Recorded Last Taken Type Nitrofurantoin Casey/M-Cryst 100 mg PO Q12HR 14 Days capsule 11/04/13 Unknown Rx [Macrobid] Ketorolac [Toradol] 10 mg PO Q6H PRN #15 tablet 10/17/18 Unknown Rx Sulfamethoxazole/Trimethoprim 2 each PO BID #40 tablet 10/17/18 Unknown Rx [Bactrim DS TAB] cephALEXin [Keflex] 500 mg PO Q6HR #40 capsule 10/17/18 Unknown Rx Acetaminophen/Codeine [Tylenol 1 tab PO Q4HR PRN #15 tablet 10/20/18 Unknown Rx /Codeine # 3 tab] Clindamycin [Clindamycin CAP] 300 mg PO Q8HR #60 capsule 10/20/18 Unknown Rx Fluconazole (Nf) [Diflucan TAB] 150 mg PO ONCE #1 tablet 10/20/18 Unknown Rx Ibuprofen [Motrin] 800 mg PO Q8HR PRN #20 tablet 10/20/18 Unknown Rx Clindamycin [Clindamycin CAP] 300 mg PO Q6H 10 Days #40 capsule 10/21/18 Unknown Rx traMADoL [Ultram] 50 mg PO Q4HR PRN #12 tablet 10/21/18 Unknown Rx Chlorhexidine Mouthwash [Peridex] 15 ml MM BID #1 bottle 10/11/20 Unknown Rx Clindamycin [Clindamycin CAP] 300 mg PO Q8H #21 cap 10/11/20 Unknown Rx Naproxen 500 mg PO Q12H PRN #12 tablet 10/11/20 Unknown Rx Allergies Allergy/AdvReac Type Severity Reaction Status Date / Time acetaminophen [From Percocet] AdvReac Swelling Verified 10/21/18 14:29 hydrocodone bitartrate AdvReac Swelling Verified 10/21/18 14:29 [From Vicodin] oxycodone HCl [From Percocet] AdvReac Swelling Verified 10/21/18 14:29 ED Dental HPI - General Chief complaint: Dental/Oral Stated complaint: TOOTH ACHE Time Seen by Provider: 10/11/20 07:46 Source: patient Mode of arrival: Ambulatory Limitations: No Limitations - Related Data Previous Rx's Medication Instructions Recorded Last Taken Type Nitrofurantoin Casey/M-Cryst 100 mg PO Q12HR 14 Days capsule 11/04/13 Unknown Rx [Macrobid] Ketorolac [Toradol] 10 mg PO Q6H PRN #15 tablet 10/17/18 Unknown Rx Sulfamethoxazole/Trimethoprim 2 each PO BID #40 tablet 10/17/18 Unknown Rx [Bactrim DS TAB] cephALEXin [Keflex] 500 mg PO Q6HR #40 capsule 10/17/18 Unknown Rx Acetaminophen/Codeine [Tylenol 1 tab PO Q4HR PRN #15 tablet 10/20/18 Unknown Rx /Codeine # 3 tab] Clindamycin [Clindamycin CAP] 300 mg PO Q8HR #60 capsule 10/20/18 Unknown Rx Fluconazole (Nf) [Diflucan TAB] 150 mg PO ONCE #1 tablet 10/20/18 Unknown Rx Ibuprofen [Motrin] 800 mg PO Q8HR PRN #20 tablet 10/20/18 Unknown Rx Clindamycin [Clindamycin CAP] 300 mg PO Q6H 10 Days #40 capsule 10/21/18 Unknown Rx traMADoL [Ultram] 50 mg PO Q4HR PRN #12 tablet 10/21/18 Unknown Rx Chlorhexidine Mouthwash [Peridex] 15 ml MM BID #1 bottle 10/11/20 Unknown Rx Clindamycin [Clindamycin CAP] 300 mg PO Q8H #21 cap 10/11/20 Unknown Rx Naproxen 500 mg PO Q12H PRN #12 tablet 10/11/20 Unknown Rx Allergies Allergy/AdvReac Type Severity Reaction Status Date / Time acetaminophen [From Percocet] AdvReac Swelling Verified 10/21/18 14:29 hydrocodone bitartrate AdvReac Swelling Verified 10/21/18 14:29 [From Vicodin] oxycodone HCl [From Percocet] AdvReac Swelling Verified 10/21/18 14:29 ED Review of Systems ROS: Stated complaint: TOOTH ACHE Other details as noted in HPI Comment: All other systems reviewed and negative Constitutional: denies: chills, fever Eyes: denies: eye pain, eye discharge, vision change ENT: dental pain. denies: ear pain, throat pain, hearing loss, epistaxis, congestion Respiratory: denies: cough, shortness of breath, wheezing Cardiovascular: denies: chest pain, palpitations Endocrine: no symptoms reported Gastrointestinal: denies: abdominal pain, nausea, diarrhea Genitourinary: denies: urgency, dysuria, discharge Musculoskeletal: denies: back pain, joint swelling, arthralgia Skin: denies: rash, lesions Neurological: denies: headache, weakness, paresthesias Psychiatric: denies: anxiety, depression Hematological/Lymphatic: denies: easy bleeding, easy bruising ED Past Medical Hx - Past Medical History Previous Medical History?: Yes Hx Psychiatric Treatment: Yes (Anxiety) Hx Asthma: Yes Additional medical history: Crohn's disease, Morbid Obesity - Social History Smoking Status: Never Smoker Substance Use Type: None - Medications Home Medications: Home Medications Medication Instructions Recorded Confirmed Last Taken Type Nitrofurantoin Casey/M-Cryst 100 mg PO Q12HR 14 Days capsule 11/04/13 Unknown Rx [Macrobid] Ketorolac [Toradol] 10 mg PO Q6H PRN #15 tablet 10/17/18 Unknown Rx Sulfamethoxazole/Trimethoprim 2 each PO BID #40 tablet 10/17/18 Unknown Rx [Bactrim DS TAB] cephALEXin [Keflex] 500 mg PO Q6HR #40 capsule 10/17/18 Unknown Rx Acetaminophen/Codeine [Tylenol 1 tab PO Q4HR PRN #15 tablet 10/20/18 Unknown Rx /Codeine # 3 tab] Clindamycin [Clindamycin CAP] 300 mg PO Q8HR #60 capsule 10/20/18 Unknown Rx Fluconazole (Nf) [Diflucan TAB] 150 mg PO ONCE #1 tablet 10/20/18 Unknown Rx Ibuprofen [Motrin] 800 mg PO Q8HR PRN #20 tablet 10/20/18 Unknown Rx Clindamycin [Clindamycin CAP] 300 mg PO Q6H 10 Days #40 capsule 10/21/18 Unknown Rx traMADoL [Ultram] 50 mg PO Q4HR PRN #12 tablet 10/21/18 Unknown Rx Chlorhexidine Mouthwash [Peridex] 15 ml MM BID #1 bottle 10/11/20 Unknown Rx Clindamycin [Clindamycin CAP] 300 mg PO Q8H #21 cap 10/11/20 Unknown Rx Naproxen 500 mg PO Q12H PRN #12 tablet 10/11/20 Unknown Rx ED Physical Exam - General Limitations: No Limitations General appearance: alert, in no apparent distress - Head Head exam: Present: atraumatic, normocephalic - Eye Eye exam: Present: normal appearance - Expanded ENT Exam Expanded Ear exam: Present: normal external inspection Mouth exam: Present: normal external inspection, tongue normal. Absent: drooling, trismus, muffled voice Teeth exam: Present: dental caries, fractured tooth #, dental tenderness #, gingival enlargement, other (Uvula midline. No swelling or abscess.) Throat exam: Positive: normal inspection. Negative: tonsillar erythema, tonsillomegaly, tonsillar exudate, R peritonsillar mass, L peritonsillar mass - Neck Neck exam: Present: normal inspection, full ROM. Absent: tenderness, meningismus, lymphadenopathy - Respiratory Respiratory exam: Absent: respiratory distress - Cardiovascular Cardiovascular Exam: Present: regular rate - Extremities Exam Extremities exam: Present: full ROM - Back Exam Back exam: Present: full ROM - Neurological Exam Neurological exam: Present: alert, oriented X3, normal gait - Psychiatric Psychiatric exam: Present: normal affect, normal mood - Skin Skin exam: Present: warm, dry, intact, normal color. Absent: rash ED Course Vital Signs 10/11/20 07:43 Temperature 98.4 F Pulse Rate 102 H Respiratory 22 Rate Blood Pressure 171/110 [Right] O2 Sat by Pulse 94 Oximetry - Reevaluation(s) Reevaluation #1: 10/11/20 08:38 Patient is speaking in full sentences with no signs of distress noted. ED Medical Decision Making - Medical Decision Making This is a 30-year-old female that presents with gingivitis and dental caries. Patient is stable and was examined by me. Exam otherwise is unremarkable. Patient does have dental caries and gingivitis. Patient be discharged with clindamycin, naproxen and Peridex. I educated patient of her hypertension and to keep a daily diary to present to primary care doctor. According to ACEP: (1) in ED patients with asymptomatic markedly elevated blood pressure, routine screening for acute target organ injury (eg, serum creatinine, urinalysis, ECG) is not required. (1) In patients with asymptomatic markedly elevated blood pressure, routine ED medical intervention is not required. Patient was instructed follow-up with a dentist doctor in 3-5 days or if symptoms worsen and continue return to emergency room as soon as possible. At time of discharge, the patient does not seem toxic or ill in appearance. No acute signs of distress noted. Patient agrees to discharge treatment plan of care. No further questions noted by the patient. Critical care attestation.: If time is entered above; I have spent that time in minutes in the direct care of this critically ill patient, excluding procedure time. ED Disposition Clinical Impression: Dental caries, Acute gingivitis Disposition: DC-01 TO HOME OR SELFCARE Is pt being admited?: No Does the pt Need Aspirin: No Condition: Stable Additional Instructions: Follow-up with a dentist doctor in 3-5 days or if symptoms worsen and continue return to emergency room as soon as possible. Prescriptions: Clindamycin [Clindamycin CAP] 300 mg PO Q8H #21 cap Naproxen 500 mg PO Q12H PRN #12 tablet PRN Reason: Pain , Severe (7-10) Chlorhexidine Mouthwash [Peridex] 15 ml MM BID #1 bottle Referrals: PRIMARY CAREMD [Primary Care Provider] - 3-5 Days JAQUI GRANADOS MD [Staff Physician] - 3-5 Days [facility] [Outside] - 3-5 Days Forms: Work/School Release Form(ED) Time of Disposition: 08:40
== END 2020-10-11 09:11 | disposition home or self-care (01) ==
LOC: ED 06:53
DX: K02.9 Dental caries, unspecified (principal); K05.00 Acute gingivitis, plaque induced; F41.9 Anxiety disorder, unspecified; J45.909 Unspecified asthma, uncomplicated; Z88.6 Allergy status to analgesic agent; Z88.5 Allergy status to narcotic agent; Z79.899 Other long term (current) drug therapy
CPT/HCPCS: 99282

== ENCOUNTER 2020-11-21 14:44 | Emergency (ER) | payer SELFPAY ==
[2020-11-21 15:02] VITALS: BP 162/108
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
--- NOTE | 2020-11-21 17:49 | Vascular Lab Report ---
DUPLEX DOPPLER LOWER EXTREMITY VEINS, RIGHT INDICATION / CLINICAL INFORMATION: Right lower leg swelling pain. TECHNIQUE: Duplex doppler imaging was performed through the veins of the right lower extremity using venous comp ression and other maneuvers. COMPARISON: None available. FINDINGS: RIGHT COMMON FEMORAL VEIN: Negative. RIGHT FEMORAL VEIN: Negative. RIGHT POPLITEAL VEIN: Negative. RIGHT CALF VEINS: Not visualized due to body habitus. ADDITIONAL FINDINGS: No evidence of a popliteal cyst or other abnormality. IMPRESSION: No sonographic evidence for DVT in the right lower extremity. Signer Name: Alex Rao MD Signed: 11/21/2020 5:45 PM Workstation Name: [id number]
== END 2020-11-21 17:50 | disposition home or self-care (01) ==
LOC: ED 14:44
DX: S89.91XA Unspecified injury of right lower leg, initial encounter (principal); M79.661 Pain in right lower leg; E66.3 Overweight; F41.9 Anxiety disorder, unspecified; E66.01 Morbid (severe) obesity due to excess calories; J45.909 Unspecified asthma, uncomplicated; Z79.899 Other long term (current) drug therapy; Z68.43 Body mass index [BMI] 50.0-59.9, adult; Z88.8 Allergy status to other drugs, medicaments and biological substances; X58.XXXA Exposure to other specified factors, initial encounter; Y93.89 Activity, other specified; Y92.099 Unspecified place in other non-institutional residence as the place of occurrence of the external cause; Y99.8 Other external cause status

== ENCOUNTER 2020-12-05 01:55 | Emergency (ER) | payer SELFPAY ==
[2020-12-05] MEDS ORDERED: ONDANSETRON 4 MG/2 ML INJ IV ONE (04:05)
[2020-12-05] MEDS ORDERED: FAMOTIDINE 20 MG/2 ML INJ IV ONE (04:05)
[2020-12-05 04:38] LABS: Hematocrit 35.3 % (30.3-42.9); Hemoglobin 11.7 gm/dl (10.1-14.3); Mean Corpuscular HGB Conc 33 % (30-34); Mean Corpuscular Volume 84 fl (79-97); Platelet Count 218 K/mm3 (140-440); Red Blood Count 4.18 M/mm3 (3.65-5.03); Red Cell Distribution Width 15.6 % (13.2-15.2)
[2020-12-05 04:58] LABS: Alanine Aminotransferase 19 units/L (7-56); Albumin 3.7 g/dL (3.9-5); BUN/Creatinine Ratio 11; Blood Urea Nitrogen 9 mg/dL (7-17); Hemolysis Index 1
[2020-12-05 06:10] LABS: Bilirubin,Urine NEG (Negative); Blood,Urine NEG (Negative); Color,Urine Straw (Yellow); Urobilinogen,Urine < 2.0 mg/dL (<2.0)
[2020-12-05] MEDS ORDERED: KETOROLAC 30 MG/1 ML INJ IV ONE (06:12)
--- NOTE | 2020-12-05 06:16 | Emergency Department Report ---
ED General Adult HPI - General Chief complaint: Headache Stated complaint: HEADACHE/WEAKNESS/EMESIS Source: patient Mode of arrival: Ambulatory Limitations: No Limitations - History of Present Illness Initial comments: Patient is a 30-year-old -[place] female with a history of morbid obesity, anxiety, asthma and Crohn's disease who presents to the ED with acute onset persistent intractable nausea and vomiting with severe headache for the last 3 days. Patient states that she has not been able to keep anything down in the last 2 days because of persistent nausea and vomiting. Patient also complains of lack of appetite and generalized weakness. Patient denies dysuria, urinary frequency and urgency, vaginal bleeding, vaginal discharge, chest pain, shortness of breath, fever, chills, cough, sore throat, change in vision, abdominal pain, nasal and sinus congestion. MD Complaint: Nausea, vomiting and headache -: Sudden, days(s) (3) Location: head, abdomen Radiation: non-radiation Severity scale (0 -10): 10 Quality: aching, sharp Consistency: constant Improves with: none Worsens with: eating, other (Vomiting) Associated Symptoms: denies other symptoms, headaches, loss of appetite, malaise, nausea/vomiting. denies: confusion, chest pain, cough, diaphoresis, fever/chills, rash, seizure, shortness of breath, syncope, weakness Treatments Prior to Arrival: none - Related Data Previous Rx's Medication Instructions Recorded Last Taken Type Nitrofurantoin [facility]/M-Cryst 100 mg PO Q12HR 14 Days capsule 11/04/13 Unknown Rx [Macrobid] Ketorolac [Toradol] 10 mg PO Q6H PRN #15 tablet 10/17/18 Unknown Rx Sulfamethoxazole/Trimethoprim 2 each PO BID #40 tablet 10/17/18 Unknown Rx [Bactrim DS TAB] cephALEXin [Keflex] 500 mg PO Q6HR #40 capsule 10/17/18 Unknown Rx Acetaminophen/Codeine [Tylenol 1 tab PO Q4HR PRN #15 tablet 10/20/18 Unknown Rx /Codeine # 3 tab] Clindamycin [Clindamycin CAP] 300 mg PO Q8HR #60 capsule 10/20/18 Unknown Rx Fluconazole (Nf) [Diflucan TAB] 150 mg PO ONCE #1 tablet 10/20/18 Unknown Rx Ibuprofen [Motrin] 800 mg PO Q8HR PRN #20 tablet 10/20/18 Unknown Rx Clindamycin [Clindamycin CAP] 300 mg PO Q6H 10 Days #40 capsule 10/21/18 Unknown Rx traMADoL [Ultram] 50 mg PO Q4HR PRN #12 tablet 10/21/18 Unknown Rx Chlorhexidine Mouthwash [Peridex] 15 ml MM BID #1 bottle 10/11/20 Unknown Rx Clindamycin [Clindamycin CAP] 300 mg PO Q8H #21 cap 10/11/20 Unknown Rx Naproxen 500 mg PO Q12H PRN #12 tablet 10/11/20 Unknown Rx Butalb/Acetamin/Caff 50-325-40 1 - 2 tab PO Q6HR PRN #15 tab 12/05/20 Unknown Rx [Fioricet 50-325-40] Famotidine [Pepcid] 20 mg PO BID #30 tablet 12/05/20 Unknown Rx Ketorolac [Toradol] 10 mg PO Q8H PRN #20 tablet 12/05/20 Unknown Rx Ondansetron [Zofran Odt] 4 mg PO Q6HR PRN #20 tab.rapdis 12/05/20 Unknown Rx Allergies Allergy/AdvReac Type Severity Reaction Status Date / Time acetaminophen [From Percocet] AdvReac Swelling Verified 10/21/18 14:29 hydrocodone bitartrate AdvReac Swelling Verified 10/21/18 14:29 [From Vicodin] oxycodone HCl [From Percocet] AdvReac Swelling Verified 10/21/18 14:29 ED Review of Systems ROS: Stated complaint: HEADACHE/WEAKNESS/EMESIS Other details as noted in HPI Constitutional: malaise, weakness. denies: chills, fever Eyes: denies: eye pain, eye discharge, vision change ENT: denies: ear pain, throat pain Respiratory: denies: cough, shortness of breath, wheezing Cardiovascular: denies: chest pain, palpitations Endocrine: no symptoms reported Gastrointestinal: nausea, vomiting. denies: abdominal pain, diarrhea Genitourinary: denies: urgency, dysuria, discharge Musculoskeletal: arthralgia, myalgia. denies: back pain, joint swelling Skin: denies: rash, lesions Neurological: headache. denies: weakness, paresthesias Psychiatric: denies: anxiety, depression Hematological/Lymphatic: denies: easy bleeding, easy bruising ED Past Medical Hx - Past Medical History Previous Medical History?: Yes Hx Psychiatric Treatment: Yes (Anxiety) Hx Asthma: Yes Additional medical history: Crohn's disease, Morbid Obesity - Surgical History Past Surgical History?: No - Social History Smoking Status: Never Smoker Substance Use Type: None - Medications Home Medications: Home Medications Medication Instructions Recorded Confirmed Last Taken Type Nitrofurantoin [facility]/M-Cryst 100 mg PO Q12HR 14 Days capsule 11/04/13 Unknown Rx [Macrobid] Ketorolac [Toradol] 10 mg PO Q6H PRN #15 tablet 10/17/18 Unknown Rx Sulfamethoxazole/Trimethoprim 2 each PO BID #40 tablet 10/17/18 Unknown Rx [Bactrim DS TAB] cephALEXin [Keflex] 500 mg PO Q6HR #40 capsule 10/17/18 Unknown Rx Acetaminophen/Codeine [Tylenol 1 tab PO Q4HR PRN #15 tablet 10/20/18 Unknown Rx /Codeine # 3 tab] Clindamycin [Clindamycin CAP] 300 mg PO Q8HR #60 capsule 10/20/18 Unknown Rx Fluconazole (Nf) [Diflucan TAB] 150 mg PO ONCE #1 tablet 10/20/18 Unknown Rx Ibuprofen [Motrin] 800 mg PO Q8HR PRN #20 tablet 10/20/18 Unknown Rx Clindamycin [Clindamycin CAP] 300 mg PO Q6H 10 Days #40 capsule 10/21/18 Unknown Rx traMADoL [Ultram] 50 mg PO Q4HR PRN #12 tablet 10/21/18 Unknown Rx Chlorhexidine Mouthwash [Peridex] 15 ml MM BID #1 bottle 10/11/20 Unknown Rx Clindamycin [Clindamycin CAP] 300 mg PO Q8H #21 cap 10/11/20 Unknown Rx Naproxen 500 mg PO Q12H PRN #12 tablet 10/11/20 Unknown Rx Butalb/Acetamin/Caff 50-325-40 1 - 2 tab PO Q6HR PRN #15 tab 12/05/20 Unknown Rx [Fioricet 50-325-40] Famotidine [Pepcid] 20 mg PO BID #30 tablet 12/05/20 Unknown Rx Ketorolac [Toradol] 10 mg PO Q8H PRN #20 tablet 12/05/20 Unknown Rx Ondansetron [Zofran Odt] 4 mg PO Q6HR PRN #20 tab.rapdis 12/05/20 Unknown Rx ED Physical Exam - General Limitations: No Limitations General appearance: alert, in no apparent distress - Head Head exam: Present: atraumatic, normocephalic, normal inspection - Eye Eye exam: Present: normal appearance, PERRL, EOMI Pupils: Present: normal accommodation - ENT ENT exam: Present: normal exam, normal orophraynx, mucous membranes moist, TM's normal bilaterally, normal external ear exam - Neck Neck exam: Present: normal inspection, full ROM - Respiratory Respiratory exam: Present: normal lung sounds bilaterally. Absent: respiratory distress, wheezes, rales, rhonchi, chest wall tenderness, accessory muscle use, decreased breath sounds, prolonged expiratory - Cardiovascular Cardiovascular Exam: Present: normal rhythm, tachycardia, normal heart sounds. Absent: systolic murmur, diastolic murmur, rubs, gallop - GI/Abdominal GI/Abdominal exam: Present: soft, normal bowel sounds. Absent: distended, tenderness, hyperactive bowel sounds, hypoactive bowel sounds - Extremities Exam Extremities exam: Present: normal inspection, full ROM, normal capillary refill - Back Exam Back exam: Present: normal inspection, full ROM. Absent: tenderness, CVA tenderness (R), CVA tenderness (L), muscle spasm, paraspinal tenderness - Neurological Exam Neurological exam: Present: alert, oriented X3, CN II-XII intact, normal gait, reflexes normal - Psychiatric Psychiatric exam: Present: normal affect, normal mood, anxious - Skin Skin exam: Present: warm, dry, intact, normal color. Absent: rash ED Course Vital Signs 12/05/20 02:34 Temperature 98.7 F Pulse Rate 105 H Respiratory 18 Rate Blood Pressure 151/109 [Left] O2 Sat by Pulse 98 Oximetry ED Medical Decision Making - Lab Data Result diagrams: 12/05/20 04:16 12/05/20 04:16 - Medical Decision Making This is a 30-year-old -[place] female with a history of morbid obesity, anxiety, asthma and Crohn's disease who presents to the ED with acute onset persistent intractable nausea and vomiting with severe headache for the last 3 days. Patient states that she has not been able to keep anything down in the last 2 days because of persistent nausea and vomiting. Patient also complains of lack of appetite and generalized weakness. In the ED, patient is alert and oriented x3 and is not in any distress but tachycardic and afebrile in triage. Patient was treated for for nausea and vomiting, also given antacids and pain medications. Lab test results were reviewed and are all nonactionable. On reevaluation, patient symptoms resolved medication. Patient was discharged home on medications and advised to follow-up with her primary care physician in 5 to 7 days for reevaluation. Patient was advised return to the ED immediately if symptoms get worse. - Differential Diagnosis Gastroenteritis; migraine headache; viral syndrome; dehydration; Critical care attestation.: If time is entered above; I have spent that time in minutes in the direct care of this critically ill patient, excluding procedure time. ED Disposition Clinical Impression: Nausea and vomiting in adult patient, Viral gastroenteritis Migraine headache without aura Qualifiers: Status migrainosus presence: without status migrainosus Intractability: not intractable Qualified Code(s): G43.009 - Migraine without aura, not intractable, without status migrainosus Disposition: DC- TO HOME OR SELFCARE Is pt being admited?: No Does the pt Need Aspirin: No Condition: Stable Instructions: Viral Gastroenteritis, Adult, [id number], Nausea and Vomiting, Adult, [id number], Migraine Headache, [id number] Additional Instructions: All lab test results were reviewed and are all nonactionable. Therefore maintain a clear liquid diet for 12 to 24 hours, drink plenty of fluids, take medications with food and follow-up with your primary care physician in 5 to 7 days for reevaluation. Return to the ED immediately if your symptoms get worse. Prescriptions: Butalb/Acetamin/Caff 50-325-40 [Fioricet 50-325-40] 1 - 2 tab PO Q6HR PRN #15 tab PRN Reason: Headache Famotidine [Pepcid] 20 mg PO BID #30 tablet Ketorolac [Toradol] 10 mg PO Q8H PRN #20 tablet PRN Reason: Pain Ondansetron [Zofran Odt] 4 mg PO Q6HR PRN #20 tab.rapdis PRN Reason: Nausea And Vomiting Referrals: [facility] [Provider Group] - 3-5 Days Forms: Work/School Release Form(ED) Time of Disposition: :18 Print Language: MALAY
[2020-12-05 06:39] LABS: Band Neutrophils # (Manual) 0.1 K/mm3; Total Cells Counted 100
[2020-12-05 06:40] LABS: Anisocytosis 1+; Platelet Estimate Consistent w Auto
[2020-12-05 06:49] VITALS: BP 165/122
== END 2020-12-05 06:35 | disposition home or self-care (01) ==
LOC: ED 01:55
DX: A08.4 Viral intestinal infection, unspecified (principal); G43.109 Migraine with aura, not intractable, without status migrainosus; F41.9 Anxiety disorder, unspecified; J45.909 Unspecified asthma, uncomplicated; Z88.6 Allergy status to analgesic agent; Z88.5 Allergy status to narcotic agent; Z79.899 Other long term (current) drug therapy
CPT/HCPCS: 36415; 80053; 81001; 84703; 85007; 85025; 96374; 96375; 99283; J1885; J2405

== ENCOUNTER 2021-01-01 12:29 | Emergency (ER) | payer SELFPAY ==
[2021-01-01] MEDS ORDERED: ALBUTEROL 2.5 MG/3 ML NEBU IH ONE (13:27)
[2021-01-01] MEDS ORDERED: methylPREDNISolone Sod Succinate 125 MG/2 ML INJ IV ONE (13:27)
[2021-01-01] MEDS ORDERED: IPRATROPIUM 0.02% NEBU 2.5 ML IH ONE (13:27)
[2021-01-01 14:04] LABS: Basophils % (Auto) 0.5 % (0.0-1.8); Eosinophils # (Auto) 0.4 K/mm3 (0.0-0.4); Eosinophils % (Auto) 4.7 % (0.0-4.3); Hematocrit 36.2 % (30.3-42.9); Hemoglobin 11.9 gm/dl (10.1-14.3); Lymphocytes # (Auto) 3.3 K/mm3 (1.2-5.4); Lymphocytes % (Auto) 42.1 % (13.4-35.0); Mean Corpuscular HGB Conc 33 % (30-34); Mean Corpuscular Volume 83 fl (79-97); Monocytes # (Auto) 0.6 K/mm3 (0.0-0.8); Monocytes % (Auto) 8.1 % (0.0-7.3); Platelet Count 302 K/mm3 (140-440); Red Blood Count 4.34 M/mm3 (3.65-5.03); Red Cell Distribution Width 15.2 % (13.2-15.2)
[2021-01-01] MEDS ORDERED: predniSONE 20 MG TAB PO ONE (14:18)
[2021-01-01 14:24] LABS: Alanine Aminotransferase 13 units/L (7-56); Albumin 3.9 g/dL (3.9-5); BUN/Creatinine Ratio 8; Blood Urea Nitrogen 6 mg/dL (7-17); Calcium 9.5 mg/dL (8.4-10.2); Hemolysis Index 5
[2021-01-01] MEDS ORDERED: methylPREDNISolone Sod Succinate 125 MG/2 ML INJ ONE (14:50)
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
[2021-01-01] MEDS: ACETAMINOPHEN 325 MG TAB PO ONE (14:59)
--- NOTE | 2021-01-01 15:40 | Vascular Lab Report ---
DUPLEX DOPPLER LOWER EXTREMITY VEINS, RIGHT INDICATION / CLINICAL INFORMATION: rle pain swelling. TECHNIQUE: Duplex doppler imaging was performed through the veins of the right lower extremity using venous comp ression and other maneuvers. COMPARISON: None available. FINDINGS: RIGHT COMMON FEMORAL VEIN: Negative. RIGHT FEMORAL VEIN: Negative. RIGHT POPLITEAL VEIN: Negative. RIGHT CALF VEINS: Negative. ADDITIONAL FINDINGS: None. IMPRESSION: 1. No sonographic evidence for DVT in the right lower extremity. Signer Name: Aleksandr Salmeron MD Signed: 01/01/2021 3:36 PM Workstation Name: [id number]
--- NOTE | 2021-01-01 15:50 | XRay Report ---
CHEST 2 VIEWS INDICATION / CLINICAL INFORMATION: shortness of breath. COMPARISON: None available. FINDINGS: SUPPORT DEVICES: None. HEART / MEDIASTINUM: No significant abnormality. LUNGS / PLEURA: No significant pulmonary abnormality. No significant pleural effusion. No pneumothora x. ADDITIONAL FINDINGS: No significant additional findings. IMPRESSION: 1. No acute abnormality of the chest. Signer Name: Stanley Hernandez MD Signed: 01/01/2021 3:46 PM Workstation Name: [id number]
[2021-01-01 16:00] VITALS: BP 145/103
== END 2021-01-01 16:29 | disposition home or self-care (01) ==
LOC: ED 12:29
DX: I87.2 Venous insufficiency (chronic) (peripheral) (principal); R03.0 Elevated blood-pressure reading, without diagnosis of hypertension; J45.909 Unspecified asthma, uncomplicated; Z68.43 Body mass index [BMI] 50.0-59.9, adult; F41.9 Anxiety disorder, unspecified; Z98.890 Other specified postprocedural states; Z88.5 Allergy status to narcotic agent; Z88.8 Allergy status to other drugs, medicaments and biological substances; Z79.899 Other long term (current) drug therapy
CPT/HCPCS: 36415; 71046; 80053; 84703; 85025; 93971; 94640; 99284; J2930; J7512

== ENCOUNTER 2021-03-13 12:38 | Inpatient (IN) | payer SELFPAY ==
[2021-03-13] MEDS ORDERED: methylPREDNISolone Sod Succinate 125 MG/2 ML INJ IV ONE (12:51)
[2021-03-13] MEDS ORDERED: ALBUTEROL 2.5 MG/3 ML NEBU IH ONE ×3 (12:51→15:24)
[2021-03-13] MEDS ORDERED: MAGNESIUM SULFATE 2 GM/50 ML BAG IV ONE (12:51)
[2021-03-13] MEDS ORDERED: IPRATROPIUM 0.02% NEBU 2.5 ML IH ONE ×2 (12:51→12:52)
[2021-03-13 13:55] LABS: Basophils % (Auto) 0.4 % (0.0-1.8); Eosinophils # (Auto) 0.4 K/mm3 (0.0-0.4); Eosinophils % (Auto) 3.8 % (0.0-4.3); Hematocrit 38.1 % (30.3-42.9); Hemoglobin 12.3 gm/dl (10.1-14.3); Lymphocytes # (Auto) 3.3 K/mm3 (1.2-5.4); Lymphocytes % (Auto) 31.5 % (13.4-35.0); Mean Corpuscular HGB Conc 32 % (30-34); Mean Corpuscular Volume 85 fl (79-97); Monocytes # (Auto) 0.8 K/mm3 (0.0-0.8); Monocytes % (Auto) 7.3 % (0.0-7.3); Platelet Count 230 K/mm3 (140-440); Red Blood Count 4.51 M/mm3 (3.65-5.03)
[2021-03-13 13:59] LABS: BUN/Creatinine Ratio 8; Blood Urea Nitrogen 7 mg/dL (7-17); Calcium 9.4 mg/dL (8.4-10.2); Hemolysis Index 5
[2021-03-13 14:05] LABS: INR 0.89 (0.87-1.13)
--- NOTE | 2021-03-13 14:10 | Emergency Department Report ---
ED Asthma HPI - General Chief Complaint: Adult Asthma Stated Complaint: WHEEZING CHEST PAIN Time Seen by Provider: 03/13/21 12:51 Source: patient Mode of arrival: Ambulatory Limitations: No Limitations - History of Present Illness Initial Comments: 31-year-old female with a past medical history of obesity, asthma, obesity, thyroid disease, and Crohn's disease presents to the hospital complaining of worsening asthma for the last 4 days. Patient's been using her albuterol inhaler and nebulizer machine for the last 4 days without improvement. She ar agueda with respiratory distress with difficulty ambulating and speaking secondary to wheezing and shortness of breath. She complains of a cough without fever loss of sense of taste or smell. She is unvaccinated for Covid. She denies history of PE/DVT, control use, or calf tenderness. Positive leg edema reported. History of 1 intubation February 2019. She is not currently on steroids. Remained saturation 90% upon arrival - Related Data Previous Rx's Medication Instructions Recorded Last Taken Type Chlorhexidine Mouthwash [Peridex] 15 ml MM BID #1 bottle 10/11/20 Unknown Rx Clindamycin [Clindamycin CAP] 300 mg PO Q8H #21 cap 10/11/20 Unknown Rx Naproxen 500 mg PO Q12H PRN #12 tablet 10/11/20 Unknown Rx Butalb/Acetamin/Caff 50-325-40 1 - 2 tab PO Q6HR PRN #15 tab 12/05/20 Unknown Rx [Fioricet 50-325-40] Famotidine [Pepcid] 20 mg PO BID #30 tablet 12/05/20 Unknown Rx Ketorolac [Toradol] 10 mg PO Q8H PRN #20 tablet 12/05/20 Unknown Rx Ondansetron [Zofran Odt] 4 mg PO Q6HR PRN #20 tab.rapdis 12/05/20 Unknown Rx Albuterol Sulfate [Proair 90 mcg IH Q4HR PRN #2 aer.pow.ba 01/01/21 Unknown Rx Respiclick] Mupirocin [Bactroban 2% OINT] 1 applic TP BID 7 Days #1 tube 01/01/21 Unknown Rx Triamcinolone Aceton 0.1% (Nf) 1 applic TP BID 14 Days #1 tube 01/01/21 Unknown Rx [Kenalog (NF)] predniSONE [Deltasone] 40 mg PO QDAY #8 tab 01/01/21 Unknown Rx Allergies Allergy/AdvReac Type Severity Reaction Status Date / Time acetaminophen [From Percocet] AdvReac Swelling Verified 03/13/21 12:45 hydrocodone bitartrate AdvReac Swelling Verified 03/13/21 12:45 [From Vicodin] oxycodone HCl [From Percocet] AdvReac Swelling Verified 03/13/21 12:45 ED Review of Systems ROS: Stated complaint: WHEEZING CHEST PAIN Other details as noted in HPI Comment: All other systems reviewed and negative ED Past Medical Hx - Past Medical History Hx Psychiatric Treatment: Yes (Anxiety) Hx Asthma: Yes Additional medical history: Crohn's disease, Morbid Obesity - Social History Smoking Status: Never Smoker Substance Use Type: None - Medications Home Medications: Home Medications Medication Instructions Recorded Confirmed Last Taken Type Chlorhexidine Mouthwash [Peridex] 15 ml MM BID #1 bottle 10/11/20 Unknown Rx Clindamycin [Clindamycin CAP] 300 mg PO Q8H #21 cap 10/11/20 Unknown Rx Naproxen 500 mg PO Q12H PRN #12 tablet 10/11/20 Unknown Rx Butalb/Acetamin/Caff 50-325-40 1 - 2 tab PO Q6HR PRN #15 tab 12/05/20 Unknown Rx [Fioricet 50-325-40] Famotidine [Pepcid] 20 mg PO BID #30 tablet 12/05/20 Unknown Rx Ketorolac [Toradol] 10 mg PO Q8H PRN #20 tablet 12/05/20 Unknown Rx Ondansetron [Zofran Odt] 4 mg PO Q6HR PRN #20 tab.rapdis 12/05/20 Unknown Rx Albuterol Sulfate [Proair 90 mcg IH Q4HR PRN #2 aer.pow.ba 01/01/21 Unknown Rx Respiclick] Mupirocin [Bactroban 2% OINT] 1 applic TP BID 7 Days #1 tube 01/01/21 Unknown Rx Triamcinolone Aceton 0.1% (Nf) 1 applic TP BID 14 Days #1 tube 01/01/21 Unknown Rx [Kenalog (NF)] predniSONE [Deltasone] 40 mg PO QDAY #8 tab 01/01/21 Unknown Rx ED Physical Exam - General Limitations: No Limitations - Other Other exam information: General: Respiratory distress Head: Atraumatic Eyes: normal appearance ENT: Moist mucous membranes Neck: Normal appearance, no midline tenderness Chest: Bilateral wheezing, accessory muscle use, respiratory distress CV: Tachycardia regular rhythm Abdomen: Soft, normal bowel sounds, nontender, nondistended, no rebound or guarding Back: Normal inspection Extremity: Bilateral lower extremity edema, full range of motion Neuro: Alert O x 3, no facial asymmetry, speech clear, no gross motor sensory deficit Psych: Appropriate behavior Skin: No rash ED Course Vital Signs 03/13/21 03/13/21 03/13/21 12:48 12:51 13:27 Temperature 98.5 F Pulse Rate 125 H 109 H Pulse Rate [ 109 H Bilateral] Respiratory 20 34 H Rate Respiratory 34 H Rate [Bilateral ] Blood Pressure 155/106 O2 Sat by Pulse 90 100 Oximetry ED Medical Decision Making - Lab Data Result diagrams: 03/13/21 13:26 03/13/21 13:26 Lab Results 03/13/21 03/13/21 03/13/21 Range/Units 13:26 13:26 13:26 WBC 10.6 (4.5-11.0) K/mm3 RBC 4.51 (3.65-5.03) M/mm3 Hgb 12.3 (10.1-14.3) gm/dl Hct 38.1 (30.3-42.9) % MCV 85 (79-97) fl MCH 27 L (28-32) pg MCHC 32 (30-34) % RDW 17.0 H (13.2-15.2) % Plt Count 230 (140-440) K/mm3 Lymph % (Auto) 31.5 (13.4-35.0) % [place] % (Auto) 7.3 (0.0-7.3) % Eos % (Auto) 3.8 (0.0-4.3) % Baso % (Auto) 0.4 (0.0-1.8) % Lymph # (Auto) 3.3 (1.2-5.4) K/mm3 [place] # (Auto) 0.8 (0.0-0.8) K/mm3 Eos # (Auto) 0.4 (0.0-0.4) K/mm3 Baso # (Auto) 0.0 (0.0-0.1) K/mm3 Seg Neutrophils % 57.0 (40.0-70.0) % Seg Neutrophils # 6.0 (1.8-7.7) K/mm3 PT 13.1 (12.2-14.9) Sec. INR 0.89 (0.87-1.13) Sodium 136 L (137-145) mmol/L Potassium 3.8 (3.6-5.0) mmol/L Chloride 100.6 (98-107) mmol/L Carbon Dioxide 23 (22-30) mmol/L Anion Gap 16 mmol/L BUN 7 (7-17) mg/dL Creatinine 0.9 (0.6-1.2) mg/dL Estimated GFR > 60 ml/min BUN/Creatinine Ratio 8 % Glucose 125 H (65-100) mg/dL Calcium 9.4 (8.4-10.2) mg/dL HCG, Qual (Negative) 03/13/21 Range/Units 13:26 WBC (4.5-11.0) K/mm3 RBC (3.65-5.03) M/mm3 Hgb (10.1-14.3) gm/dl Hct (30.3-42.9) % MCV (79-97) fl MCH (28-32) pg MCHC (30-34) % RDW (13.2-15.2) % Plt Count (140-440) K/mm3 Lymph % (Auto) (13.4-35.0) % [place] % (Auto) (0.0-7.3) % Eos % (Auto) (0.0-4.3) % Baso % (Auto) (0.0-1.8) % Lymph # (Auto) (1.2-5.4) K/mm3 [place] # (Auto) (0.0-0.8) K/mm3 Eos # (Auto) (0.0-0.4) K/mm3 Baso # (Auto) (0.0-0.1) K/mm3 Seg Neutrophils % (40.0-70.0) % Seg Neutrophils # (1.8-7.7) K/mm3 PT (12.2-14.9) Sec. INR (0.87-1.13) Sodium (137-145) mmol/L Potassium (3.6-5.0) mmol/L Chloride (98-107) mmol/L Carbon Dioxide (22-30) mmol/L Anion Gap mmol/L BUN (7-17) mg/dL Creatinine (0.6-1.2) mg/dL Estimated GFR ml/min BUN/Creatinine Ratio % Glucose (65-100) mg/dL Calcium (8.4-10.2) mg/dL HCG, Qual Negative (Negative) - Radiology Data Radiology results: report reviewed CHEST 1 VIEW 03/13/2021 1:53 PM INDICATION / CLINICAL INFORMATION: Shortness of breath. COMPARISON: 01/01/21. FINDINGS: SUPPORT DEVICES: None. HEART / MEDIASTINUM: The heart size and pulmonary vasculature are normal for technique. LUNGS / PLEURA: There is possible minimal patchy parenchymal disease in the right upper lobe. The lungs are otherwise clear. No pleural effusion. No pneumothorax. ADDITIONAL FINDINGS: No significant additional findings. IMPRESSION: Possible minimal patchy right upper lobe pneumonia. - Medical Decision Making 31-year-old obese female with history of asthma presented patient presents to the hospital with respiratory distress. As exacerbation. Patient improved with BiPAP, steroids, magnesium, Solu-Medrol, oxygen supplementation. Patient reassessed at initial hour of nebs help with improvement but still has significant wheezing on exam she does however have decreased respiratory distress. X-ray suggestive of possible pneumonia. Antibiotics and cultures ordered. Covid order set initiated. Patient will be admitted to the hospit alist service for further treatment. Differential includes but not limited to asthma, Covid, pneumonia, pulmonary embolism, and CHF Critical Care Time: Yes Critical care time in (mins) excluding proc time.: 35 Critical care attestation.: If time is entered above; I have spent that time in minutes in the direct care of this critically ill patient, excluding procedure time. ED Disposition Clinical Impression: Acute asthma exacerbation, Respiratory failure, Morbid obesity, Pneumonia, Leg edema Disposition: ADMITTED INPATIENT Is pt being admited?: Yes Condition: Stable Instructions: Bacterial Pneumonia (ED) Referrals: ARACELI MANZANARES [Other] - 3-5 Days
--- NOTE | 2021-03-13 14:20 | XRay Report ---
CHEST 1 VIEW 03/13/2021 1:53 PM INDICATION / CLINICAL INFORMATION: Shortness of breath. COMPARISON: 01/01/21. FINDINGS: SUPPORT DEVICES: None. HEART / MEDIASTINUM: The heart size and pulmonary vasculature are normal for technique. LUNGS / PLEURA: There is possible minimal patchy parenchymal disease in the right upper lobe. The royr gs are otherwise clear. No pleural effusion. No pneumothorax. ADDITIONAL FINDINGS: No significant additional findings. IMPRESSION: Possible minimal patchy right upper lobe pneumonia. Signer Name: Alex Rao MD Signed: 03/13/2021 2:15 PM Workstation Name: [id number]
[2021-03-13] MEDS ORDERED: AZITHROMYCIN/NS 500 MG/250 ML 500 MG/250 ML BAG IV ONE (14:36)
[2021-03-13] MEDS ORDERED: cefTRIAXone/NS 2 GM/100 ML 2 GM/100 ML BAG IV ONE (14:36)
[2021-03-13 16:23] LABS: C-Reactive Protein 4.3 mg/dL (0.00-1.30)
--- NOTE | 2021-03-13 19:29 | History and Physical Report ---
History of Present Illness Date of examination: 03/13/21 Date of admission: 03/13/21 18:53 Chief complaint: Severe shortness of breath and wheezing for 4 days History of present illness: 31-year-old female with history of asthma and morbid obesity, Crohn's disease co mes into the emergency room for severe wheezing and shortness of breath for the last 4 days. Patient is using her nebulizers and inhalers at home without improvement. No fever. Patient has difficulty ambulating because of the shortness of breath. Cough nonproductive. Patient is unvaccinated. No history of PE or DVT. No loss of smell. No fever or chills. Patient is very short of breath and tachypneic. ER course patient was put on BiPAP because of the severe wheezing and hypoxia - Past Medical History --Psychiatric Treatment: Yes (Anxiety) --Asthma: Yes --Additional medical history: Crohn's disease, Morbid Obesity -Surgical history --None - Social History --Never Smoker --Substance Use Type: None - Medications Home Medications: Home Medications Medication Instructions Recorded Confirmed Last Taken Type Chlorhexidine Mouthwash [Peridex] 15 ml MM BID #1 bottle 10/11/20 Unknown Rx Clindamycin [Clindamycin CAP] 300 mg PO Q8H #21 cap 10/11/20 Unknown Rx Naproxen 500 mg PO Q12H PRN #12 tablet 10/11/20 Unknown Rx Butalb/Acetamin/Caff 50-325-40 1 - 2 tab PO Q6HR PRN #15 tab 12/05/20 Unknown Rx [Fioricet 50-325-40] Famotidine [Pepcid] 20 mg PO BID #30 tablet 12/05/20 Unknown Rx Ketorolac [Toradol] 10 mg PO Q8H PRN #20 tablet 12/05/20 Unknown Rx Ondansetron [Zofran Odt] 4 mg PO Q6HR PRN #20 tab.rapdis 12/05/20 Unknown Rx Albuterol Sulfate [Proair 90 mcg IH Q4HR PRN #2 aer.pow.ba 01/01/21 Unknown Rx Respiclick] Mupirocin [Bactroban 2% OINT] 1 applic TP BID 7 Days #1 tube 01/01/21 Unknown Rx Triamcinolone Aceton 0.1% (Nf) 1 applic TP BID 14 Days #1 tube 01/01/21 Unknown Rx [Kenalog (NF)] predniSONE [Deltasone] 40 mg PO QDAY #8 tab 01/01/21 Unknown Rx Review of Systems ROS: Stated complaint: WHEEZING CHEST PAIN Other details as noted in HPI Comment: All other systems reviewed and negative Medications and Allergies Allergies Allergy/AdvReac Type Severity Reaction Status Date / Time acetaminophen [From Percocet] AdvReac Swelling Verified 03/13/21 12:45 hydrocodone bitartrate AdvReac Swelling Verified 03/13/21 12:45 [From Vicodin] oxycodone HCl [From Percocet] AdvReac Swelling Verified 03/13/21 12:45 Home Medications Medication Instructions Recorded Confirmed Last Taken Type Chlorhexidine Mouthwash [Peridex] 15 ml MM BID #1 bottle 10/11/20 03/13/21 Unknown Rx Clindamycin [Clindamycin CAP] 300 mg PO Q8H #21 cap 10/11/20 03/13/21 Unknown Rx Naproxen 500 mg PO Q12H PRN #12 tablet 10/11/20 03/13/21 Unknown Rx Butalb/Acetamin/Caff 50-325-40 1 - 2 tab PO Q6HR PRN #15 tab 12/05/20 03/13/21 Unknown Rx [Fioricet 50-325-40] Famotidine [Pepcid] 20 mg PO BID #30 tablet 12/05/20 03/13/21 Unknown Rx Ketorolac [Toradol] 10 mg PO Q8H PRN #20 tablet 12/05/20 03/13/21 Unknown Rx Ondansetron [Zofran Odt] 4 mg PO Q6HR PRN #20 tab.rapdis 12/05/20 03/13/21 Unknown Rx Albuterol Sulfate [Proair 90 mcg IH Q4HR PRN #2 aer.pow.ba 01/01/21 03/13/21 Unknown Rx Respiclick] Mupirocin [Bactroban 2% OINT] 1 applic TP BID 7 Days #1 tube 01/01/21 03/13/21 Unknown Rx Triamcinolone Aceton 0.1% (Nf) 1 applic TP BID 14 Days #1 tube 01/01/21 03/13/21 Unknown Rx [Kenalog (NF)] predniSONE [Deltasone] 40 mg PO QDAY #8 tab 01/01/21 03/13/21 Unknown Rx Exam - Constitutional Vitals: Temp Pulse Resp BP Pulse Ox 98.5 F 119 H 20 155/106 98 03/13/21 12:48 03/13/21 17:46 03/13/21 17:46 03/13/21 12:48 03/13/21 17:46 General appearance: Present: severe distress, well-nourished - EENT Eyes: Present: PERRL ENT: hearing intact, clear oral mucosa - Neck Neck: Present: supple, normal ROM - Respiratory Respiratory effort: normal Respiratory: bilateral: diminished, rhonchi, wheezing - Cardiovascular Heart rate: 88 Rhythm: regular Heart Sounds: Present: S1 & S2. Absent: rub, click - Extremities Extremities: no ischemia, pulses intact, pulses symmetrical, No edema Peripheral Pulses: within normal limits - Abdominal General gastrointestinal: Present: soft, non-tender, non-distended, normal bowel sounds Female genitourinary: Present: normal - Integumentary Integumentary: Present: clear, warm, dry - Musculoskeletal Musculoskeletal: gait normal, strength equal bilaterally - Psychiatric Psychiatric: appropriate mood/affect, intact judgment & insight - Neurologic Neurologic: CNII-XII intact, moves all extremities - Allied Health Allied health notes reviewed: nursing, case management Results - Labs CBC & Chem 7: 03/13/21 13:26 03/13/21 15:40 Labs: Laboratory Last Values WBC 10.6 K/mm3 (4.5-11.0) 03/13/21 13:26 RBC 4.51 M/mm3 (3.65-5.03) 03/13/21 13:26 Hgb 12.3 gm/dl (10.1-14.3) 03/13/21 13:26 Hct 38.1 % (30.3-42.9) 03/13/21 13:26 MCV 85 fl (79-97) 03/13/21 13:26 MCH 27 pg (28-32) L 03/13/21 13:26 MCHC 32 % (30-34) 03/13/21 13:26 RDW 17.0 % (13.2-15.2) H 03/13/21 13:26 Plt Count 230 K/mm3 (140-440) 03/13/21 13:26 Lymph % (Auto) 31.5 % (13.4-35.0) 03/13/21 13:26 [place] % (Auto) 7.3 % (0.0-7.3) 03/13/21 13:26 Eos % (Auto) 3.8 % (0.0-4.3) 03/13/21 13:26 Baso % (Auto) 0.4 % (0.0-1.8) 03/13/21 13:26 Lymph # (Auto) 3.3 K/mm3 (1.2-5.4) 03/13/21 13:26 [place] # (Auto) 0.8 K/mm3 (0.0-0.8) 03/13/21 13:26 Eos # (Auto) 0.4 K/mm3 (0.0-0.4) 03/13/21 13:26 Baso # (Auto) 0.0 K/mm3 (0.0-0.1) 03/13/21 13:26 Seg Neutrophils % 57.0 % (40.0-70.0) 03/13/21 13:26 Seg Neutrophils # 6.0 K/mm3 (1.8-7.7) 03/13/21 13:26 PT 13.1 Sec. (12.2-14.9) 03/13/21 13:26 INR 0.89 (0.87-1.13) 03/13/21 13:26 D-Dimer 206.51 ng/mlDDU (0-234) 03/13/21 15:40 Sodium 136 mmol/L (137-145) L 03/13/21 13:26 Potassium 3.8 mmol/L (3.6-5.0) 03/13/21 13:26 Chloride 100.6 mmol/L (98-107) 03/13/21 13:26 Carbon Dioxide 23 mmol/L (22-30) 03/13/21 13:26 Anion Gap 16 mmol/L 03/13/21 13:26 BUN 7 mg/dL (7-17) 03/13/21 13:26 Creatinine 0.9 mg/dL (0.6-1.2) 03/13/21 13:26 Estimated GFR > 60 ml/min 03/13/21 13:26 BUN/Creatinine Ratio 8 % 03/13/21 13:26 Glucose 130 mg/dL (65-100) H 03/13/21 15:40 Calcium 9.4 mg/dL (8.4-10.2) 03/13/21 13:26 Ferritin 87.3 ng/mL (10.0-200.0) 03/13/21 15:40 Lactate Dehydrogenase 235 units/L (91-180) H 03/13/21 15:40 C-Reactive Protein 4.30 mg/dL (0.00-1.30) H 03/13/21 15:40 Procalcitonin < 0.05 ng/mL (<0.15) 03/13/21 15:40 HCG, Qual Negative (Negative) 03/13/21 13:26 Short CBC 03/13/21 Range/Units 13:26 WBC 10.6 (4.5-11.0) K/mm3 Hgb 12.3 (10.1-14.3) gm/dl Hct 38.1 (30.3-42.9) % Plt Count 230 (140-440) K/mm3 BMP 03/13/21 03/13/21 13:26 15:40 Sodium 136 L Potassium 3.8 Chloride 100.6 Carbon Dioxide 23 BUN 7 Creatinine 0.9 Glucose 125 H 130 H Calcium 9.4 Microbiology: Microbiology 03/13/21 15:40 Peripheral/Venous Blood Culture - Preliminary Culture in Progress 03/13/21 15:40 Peripheral/Venous Blood Culture - Preliminary Culture in Progress - Imaging and Cardiology Chest x-ray: report reviewed Imaging and Cardiology: Chest x-ray Possible minimal patchy right upper lobe pneumonia Assessment and Plan Assessment and plan: Critical care statement The high probability OF a clinically significant sudden or life-threatening deterioration of the cardiorespiratory system and endocrine system required my full and direct attention, intervention and postoperative management. The aggregate critical care time was 40 minutes. The time is in addition to time spent performing reported procedures but includes the followin: Data review and interpretation 2: Patient assessment and monitoring of vital signs 3: Documentation 4:: Medication orders and management Advance Directives: Yes (Full code) VTE prophylaxis?: Chemical Plan of care discussed with patient/family: Yes - Patient Problems (1) Acute respiratory failure with hypoxia Current Visit: Yes Status: Acute Plan to address problem: Patient is hypoxic on room air Patient initiated on BiPAP May need intubation IV Solu-Medrol IV antibiotics and nebulizer treatments [id number] Pulmonary consult requested (2) Acute asthma exacerbation Current Visit: Yes Status: Acute Qualifiers: Asthma severity: severe Plan to address problem: Patient initiated on IV Solu-Medrol, IV antibiotics and nebulizer treatments [id number] Pulmicort added Patient also started on Singulair for prevention of asthma attacks in future (3) Right upper lobe pneumonia Current Visit: Yes Status: Acute Qualifiers: Pneumonia type: due to unspecified organism Qualified Code(s): J18.9 - Pneumonia, unspecified organism Plan to address problem: Patient initiated on IV ceftriaxone and Zithromax (4) Morbid obesity Current Visit: Yes Status: Chronic Plan to address problem: Patient is to follow-up with bariatric surgery as outpatient Referral to be given to Dr. [facility] bariatric surgeon (5) DVT prophylaxis Current Visit: Yes Status: Acute Plan to address problem: On anticoagulation GI prophylaxis
[2021-03-13] MEDS ORDERED: SODIUM CHLORIDE 0.9% 1000 ML 1,000 ML IV SCH (19:30)
[2021-03-13] MEDS ORDERED: HYDROmorphone 1 MG/1 ML INJ IV PRN (19:35)
[2021-03-13] MEDS ORDERED: METOCLOPRAMIDE 10 MG/2 ML INJ IV PRN (19:35)
[2021-03-13] MEDS ORDERED: oxyCODONE /ACETAMINOPHEN 5-325MG TAB PO PRN (19:35)
[2021-03-13] MEDS ORDERED: IPRATROPIUM/ALBUTEROL SULFATE 3 ML AMPUL.NEB IH PRN (19:38)
[2021-03-13] MEDS ORDERED: LORazepam 2 MG/ML VIAL IV ONE (19:40)
[2021-03-13] MEDS: IPRATROPIUM/ALBUTEROL SULFATE 3 ML AMPUL.NEB IH SCH (21:41)
[2021-03-13 21:47] LABS: ABG Base Excess -3.3 mmol/L (-2.0-3.0); ABG HCO3 22.8 mmol/L (20.0-26.0); ABG Methemoglobin 0.5 % (0.0-1.5); ABG Oxygen Saturation 92.9 % (95.0-99.0); ABG PH 7.323 pH Units (7.350-7.450); ABG PO2 69.8 mm Hg (80.0-90.0)
[2021-03-13] MEDS: ONDANSETRON 4 MG/2 ML INJ IV PRN (22:29)
[2021-03-13] MEDS: LORazepam 2 MG/ML VIAL IV PRN (23:18)
[2021-03-13] MEDS: methylPREDNISolone Sod Succinate 125 MG/2 ML INJ IV SCH (23:18)
[2021-03-14] MEDS ORDERED: ETOMIDATE 20 MG/10 ML INJ IV ONE ×2 (00:20→00:45)
[2021-03-14] MEDS ORDERED: ROCURONIUM 50 MG/5 ML INJ IV ONE ×3 (00:20→15:00)
[2021-03-14] MEDS ORDERED: SUCCINYLCHOLINE CHLORIDE 200 MG/10 ML INJ MDV ONE (00:20)
[2021-03-14] MEDS ORDERED: SUCCINYLCHOLINE CHLORIDE 200 MG/10 ML INJ MDV IV ONE (00:45)
--- NOTE | 2021-03-14 01:10 | Event Note ---
Date: 03/14/21 I was called to the floor by the admitting physician due to respiratory distress. Apparently, the patient was in respiratory distress from the [facility]. She had promptly vomited while on BiPAP. Due to this, it was felt that the patient would likely need to be intubated if she cannot be placed back on BiPAP for risk of aspiration. Upon arrival to the room, patient is in severe respiratory distress. She has labored respirations. She is altered. She is on heated high flow with nonrebreather and maintaining her saturations. However, she is not protecting her airway. I agree that intubation would be the most appropriate. Patient was prepped for intubation. She had been maintained on oxygen. Suction was available. Patient was given etomidate 20 mg IV. We then used a 4 curved glide scope blade to visualize the cords. This was done without difficulty. There was no pooling secretions in the posterior pharynx. 7.5 ET tube was then inserted without difficulty. It was secured at 24 at the lip. It was felt that this likely would be deep but we would wait chest x-ray for that. There is good FAF color change. There is good fogging of the tube. There are no sounds over the epigastrium. Patient maintain saturations. Tube was secured. Care was left in the hands of the admitting physician.
[2021-03-14] MEDS: fentaNYL DRIP Premix 2,000 MCG/100 ML BAG IV SCH ×4 (01:52→22:45)
--- NOTE | 2021-03-14 02:00 | XRay Report ---
CHEST 1 VIEW INDICATION: r/o pna resp distress. COMPARISON: One day prior. FINDINGS: Support devices: Endotracheal tube tip is approximately 8-9 cm above the stephanie. Heart: Stable. Lungs/Pleura: There are mild patchy airspace opacities in the right upper lung and within both lower lungs. No pleural abnormality. IMPRESSION: 1. Endotracheal tube tip is approximately 8-9 cm above the stephanie. COMMUNICATION: Time of Communication (MANAGER LAB/CDT): 9575 Licensed Practitioner Receiving Report: NANCY Yun Signer Name: Marty Flower MD Signed: 03/14/2021 1:55 AM Workstation Name: [id number]
[2021-03-14 04:15] LABS: ABG Base Excess -5.4 mmol/L (-2.0-3.0); ABG HCO3 22.6 mmol/L (20.0-26.0); ABG Methemoglobin 0.5 % (0.0-1.5); ABG Oxygen Saturation 94.9 % (95.0-99.0); ABG PCO2 54.7 mm Hg; ABG PH 7.234 pH Units (7.350-7.450); ABG PO2 83.4 mm Hg (80.0-90.0)
[2021-03-14 06:36] LABS: Basophils % (Auto) 0.1 % (0.0-1.8); Hematocrit 39.5 % (30.3-42.9); Hemoglobin 12.4 gm/dl (10.1-14.3); Lymphocytes # (Auto) 1.6 K/mm3 (1.2-5.4); Lymphocytes % (Auto) 7.8 % (13.4-35.0); Mean Corpuscular HGB Conc 31 % (30-34); Mean Corpuscular Volume 87 fl (79-97); Monocytes # (Auto) 1.3 K/mm3 (0.0-0.8); Monocytes % (Auto) 6.7 % (0.0-7.3); Platelet Count 239 K/mm3 (140-440); Red Blood Count 4.54 M/mm3 (3.65-5.03); Red Cell Distribution Width 17.5 % (13.2-15.2)
[2021-03-14 07:03] LABS: Albumin 3.8 g/dL (3.9-5); Calcium 9.2 mg/dL (8.4-10.2)
[2021-03-14] MEDS: IPRATROPIUM/ALBUTEROL SULFATE 3 ML AMPUL.NEB IH SCH ×6 (07:50→21:36)
[2021-03-14] MEDS: methylPREDNISolone Sod Succinate 125 MG/2 ML INJ IV SCH ×3 (07:59→14:11)
[2021-03-14] MEDS: HEPARIN 5,000 UNIT/1 ML VIAL SUB-Q SCH ×3 (08:00→22:17)
[2021-03-14] MEDS: FAMOTIDINE 20 MG/2 ML INJ IV SCH ×3 (08:00→22:18)
[2021-03-14 08:38] LABS: Albumin 4.1 g/dL (3.9-5); Calcium 9.5 mg/dL (8.4-10.2)
[2021-03-14] MEDS: AZITHROMYCIN/NS 500 MG/250 ML 500 MG/250 ML BAG IV SCH (10:30)
[2021-03-14] MEDS: cefTRIAXone/NS 2 GM/100 ML 2 GM/100 ML BAG IV SCH (10:30)
--- NOTE | 2021-03-14 10:41 | XRay Report ---
ABDOMEN 1 VIEW 03/14/2021 9:34 AM INDICATION / CLINICAL INFORMATION: ng tube placement verification. COMPARISON: None available. FINDINGS: TUBES / LINES: Nasogastric tube is coiled in the stomach. BOWEL GAS PATTERN: No significant abnormality. FREE AIR / EXTRALUMINAL GAS: None. ADDITIONAL FINDINGS: No significant additional findings. IMPRESSION: 1. Esophagogastric tube in expected position. Signer Name: Micheal Rodriguez MD Signed: 03/14/2021 10:37 AM Workstation Name: [id number]
--- NOTE | 2021-03-14 10:42 | XRay Report ---
CHEST 1 VIEW 03/14/2021 9:34 AM INDICATION / CLINICAL INFORMATION: High peak pressures. COMPARISON: Earlier today at 1:20 AM. FINDINGS: SUPPORT DEVICES: The tip of the endotracheal tube is 11.5 cm above the stephanie near the cervicothoraci c junction. There is a new nasogastric tube coursing into the stomach with the tip not seen. HEART / MEDIASTINUM: Unchanged. LUNGS / PLEURA: There are mild patchy parenchymal opacities in both mid to lower lung zones, mildly i ncreased. There is a probable minimal right pleural effusion. No pneumothorax. ADDITIONAL FINDINGS: No significant additional findings. IMPRESSION: 1. High endotracheal tube position. The tube could be advanced 5 to 6 cm. 2. Increasing patchy parenchymal opacities bilaterally. Signer Name: Alex Rao MD Signed: 03/14/2021 10:38 AM Workstation Name: [id number]
[2021-03-14] MEDS ORDERED: SODIUM POLYSTYRENE 15 GM/60 ML ORAL LIQD PO ONE (11:04)
--- NOTE | 2021-03-14 11:07 | Progress Note ---
Assessment and Plan Assessment and plan: This is a 31-year-old female with history of asthma, morbid obesity, and Crohn's disease who came in complaining of severe wheezing and shortness of breath for the last 4 days that was not relieved by her home nebs and rescue inhalers. Patient was initially admitted to IMCU on bipap but was subsequently intubated due to severe respiratory distress and was unable to protect her aiway. Patient was found to have bronchospasm, IV steroids and nebs where administered and patient was transferred to the ICU for further management. Hospital Course to Date: 03/14/21- Patient is s/p intubation from this morning, sedated on propofol and fentanyl RASS -3 to -4. ETT above the clavicles advanced by 2cc. Continue nebs and IV steroids per CCM. COVID swab pending. Hyperkalemia improved, X1 dose of kayaxalate ordered. Low BP and low urine output this am, fluid bolus challenge, 500cc of NS bolus given. Continue to monitor electrolytes and renal function, repeat BMP this afternoon. Assessment and Plan #Neuro: Sedated - Intubated and sedated on propofol and fentanyl RASS -3 to -4 - Titrate sedation for RASS goal 0 to -2 - Daily SAT and SBT per [facility] - Avoid benzodiazepine's, reduce the possibility of delirium - Prn analgesia for CPOT greater than 3 - Maintenance of sleep-wake cycle #CV:Tachycardia - ST on the monitor - BP soft with low urine output - 500cc NS bolus - On IVF - Maintain adequate perfusion - Continue rehydration with cont. IVF - Continue blood pressure monitor per protocol - Maintain MAP above 65 - Continue AC- Hep SubQ and SCDs for VTE proph #Acute Respiratory Failure #RUL PNA #Asthma Exacerbation #Bronchospasm #Possible Aspiration #COVID PUI - 03/13 CXR- possible minimal patchy RUL pneumonia - 03/14 CXR- increasing patchy parenchymal opacities bilaterally - C/f for aspiration while patient was on Bipap - Intubated on 03/14 for airway protection - High Peak pressure post intubation--> bronchospasm - IV steroids, nebs, and X1 dose of GERARD given - COVID swab pending - ETT above the clavicles, advance by 2cm - Vent setting: PRVC- 100%,8,25.450 - AM ABG noted - CCM consulted, appreciate recommendations - Continue IV Steroids and Nebs per CCM - VAP bundle addressed - Aspiration precaution HOB above 30 - Daily SBT and SAT trials as tolerated - Daily ABG and CXR - Continue SPO2 monitoring for SPO2 goal above 92% #GI:Vomitting - Vomitted prior to intubation - Keep patient NPO for now - NGT in placed, consider LIS - Continue BR - Continue PPI- pepcid - PRN entiemetic for N/V #:Acute Kidney Injury most likely ATN #Hyperkalemia - Initial cr. was 0.8-- up to 1.8 this am - K as high as 6.2--> 5.4 this am - X1 dose of kayaxalate ordered - Low UOP this am - 500cc NS bolus - Repeat BMP this afternoon - Strict intake and output - Avoid nephrotoxic medications; Renally dose medications - Bazan in place - Bladder scan with less than 6cc - Continue IVF for now - Monitor and replace electrolytes as needed - Consider Nephro consult if worsen #ID:RUL Pneumonia #Possible aspiration Pneumonia #Leukocytosis #COVID PUI - 03/13 CXR- possible minimal patchy RUL pneumonia - 03/14 CXR- increasing patchy parenchymal opacities bilaterally - C/f for aspiration while patient was on Bipap - WBCs 20 this am. TMAx 98.9 - COVID swab pending - B.CultureX2 and tracheal aspirate pending - Continue empiric ABx - Continue to F/U on B.cult - Daily CBC monitor - Consider ID consult if febrile or/and if leukocytosis worsen #Endo: Hyperglycemia - Possibly due to IV steroids - SSI initiated Q6hrs - A1c pending - While critically ill target blood glucose of 140-180 - Avoid hypoglycemia The high probability of a clinically significant, sudden or life threatening deterioration of the [multiple] system(s) required my full and direct attention, intervention and personal management. The aggregate critical care time was [60] minutes. This time is in addition to time spent performing reported procedures but includes the following: [x] Data Review and interpretation [x] Patient assessment and monitoring of vital signs [x] Documentation [x] Medication orders and management Disposition Plan: ICU Total Time Spent with Patient (Minutes): 60 History Interval history: Patient is seen and examined at the bedside. Patient is s/p intubated from this morning. Currently on the vent and sedated. Bronchospasm post intubation, IV steroids and nebs treatment given Hospitalist Physical - Constitutional Vitals: Temp Pulse Resp BP Pulse Ox 98.9 F 103 H 25 H 116/50 99 03/14/21 07:28 03/14/21 07:50 03/14/21 07:50 03/14/21 07:50 03/14/21 07:50 General appearance: Present: no acute distress, severe distress, well-nourished, obese, other (Intubated and sedated) - EENT Eyes: Present: PERRL - Respiratory Respiratory effort: normal Respiratory: bilateral: wheezing - Cardiovascular Rhythm: regular Heart Sounds: Present: S1 & S2 - Extremities Extremities: no ischemia, pulses intact, pulses symmetrical Extremity abnormal: edema - Peripheral Assessment Generalized Edema Type: Non-pitting Edema Degree: 1+ Capillary Refill: < 3 seconds Skin Temperature: Warm Peripheral Pulses: within normal limits - Abdominal General gastrointestinal: soft, non-tender, normal bowel sounds - Integumentary Integumentary: Present: clear, warm, dry - Psychiatric Psychiatric: other (Intubated and sedated) - Neurologic Neurologic: other (Intubated and sedated) - Allied Health Allied health notes reviewed: nursing Results - Labs CBC & Chem 7: 03/14/21 06:21 03/14/21 17:29 Labs: Laboratory Last Values WBC 20.0 K/mm3 (4.5-11.0) H 03/14/21 06:21 RBC 4.54 M/mm3 (3.65-5.03) 03/14/21 06:21 Hgb 12.4 gm/dl (10.1-14.3) 03/14/21 06:21 Hct 39.5 % (30.3-42.9) 03/14/21 06:21 MCV 87 fl (79-97) 03/14/21 06:21 MCH 27 pg (28-32) L 03/14/21 06:21 MCHC 31 % (30-34) 03/14/21 06:21 RDW 17.5 % (13.2-15.2) H 03/14/21 06:21 Plt Count 239 K/mm3 (140-440) 03/14/21 06:21 Lymph % (Auto) 7.8 % (13.4-35.0) L 03/14/21 06:21 [place] % (Auto) 6.7 % (0.0-7.3) 03/14/21 06:21 Eos % (Auto) 0.0 % (0.0-4.3) 03/14/21 06:21 Baso % (Auto) 0.1 % (0.0-1.8) 03/14/21 06:21 Lymph # (Auto) 1.6 K/mm3 (1.2-5.4) 03/14/21 06:21 [place] # (Auto) 1.3 K/mm3 (0.0-0.8) H 03/14/21 06:21 Eos # (Auto) 0.0 K/mm3 (0.0-0.4) 03/14/21 06:21 Baso # (Auto) 0.0 K/mm3 (0.0-0.1) 03/14/21 06:21 Seg Neutrophils % 85.4 % (40.0-70.0) H 03/14/21 06:21 Seg Neutrophils # 17.1 K/mm3 (1.8-7.7) H 03/14/21 06:21 PT 13.1 Sec. (12.2-14.9) 03/13/21 13:26 INR 0.89 (0.87-1.13) 03/13/21 13:26 D-Dimer 206.51 ng/mlDDU (0-234) 03/13/21 15:40 ABG pH 7.234 pH Units (7.350-7.450) L 03/14/21 03:35 ABG pCO2 54.7 mm Hg 03/14/21 03:35 ABG pO2 83.4 mm Hg (80.0-90.0) 03/14/21 03:35 ABG HCO3 22.6 mmol/L (20.0-26.0) 03/14/21 03:35 ABG O2 Saturation 94.9 % (95.0-99.0) L 03/14/21 03:35 ABG O2 Content 17.2 (0.0-44) 03/14/21 03:35 ABG Base Excess -5.4 mmol/L (-2.0-3.0) L 03/14/21 03:35 ABG Hemoglobin 13.1 gm/dl (12.0-16.0) 03/14/21 03:35 ABG Carboxyhemoglobin 1.3 % (0.0-5.0) 03/14/21 03:35 ABG Methemoglobin 0.5 % (0.0-1.5) 03/14/21 03:35 Oxyhemoglobin 93.2 % (95.0-99.0) L 03/14/21 03:35 FiO2 100 % 03/14/21 03:35 Sodium 136 mmol/L (137-145) L 03/14/21 07:47 Potassium 5.4 mmol/L (3.6-5.0) H 03/14/21 07:47 Chloride 101.0 mmol/L (98-107) 03/14/21 07:47 Carbon Dioxide 21 mmol/L (22-30) L 03/14/21 07:47 Anion Gap 19 mmol/L 03/14/21 07:47 BUN 15 mg/dL (7-17) 03/14/21 07:47 Creatinine 1.8 mg/dL (0.6-1.2) H 03/14/21 07:47 Estimated GFR 40 ml/min 03/14/21 07:47 BUN/Creatinine Ratio 8 % 03/14/21 07:47 Glucose 141 mg/dL (65-100) H 03/14/21 07:47 Calcium 9.5 mg/dL (8.4-10.2) 03/14/21 07:47 Ferritin 87.3 ng/mL (10.0-200.0) 03/13/21 15:40 Total Bilirubin 0.20 mg/dL (0.1-1.2) 03/14/21 07:47 AST 20 units/L (5-40) 03/14/21 07:47 ALT 17 units/L (7-56) 03/14/21 07:47 Alkaline Phosphatase 92 units/L (35-129) 03/14/21 07:47 Lactate Dehydrogenase 235 units/L (91-180) H 03/13/21 15:40 C-Reactive Protein 4.30 mg/dL (0.00-1.30) H 03/13/21 15:40 Total Protein 9.2 g/dL (6.3-8.2) H 03/14/21 07:47 Albumin 4.1 g/dL (3.9-5) 03/14/21 07:47 Albumin/Globulin Ratio 0.8 % 03/14/21 07:47 Procalcitonin < 0.05 ng/mL (<0.15) 03/13/21 15:40 HCG, Qual Negative (Negative) 03/13/21 13:26 Microbiology: Microbiology 03/13/21 15:40 Peripheral/Venous Blood Culture - Preliminary Culture in Progress 03/13/21 15:40 Peripheral/Venous Blood Culture - Preliminary Culture in Progress Bazan/IV: Voiding Method Incontinent Active Medications - Current Medications Current Medications: Generic Name Dose Route Start Last Admin Trade Name Freq PRN Reason Stop Dose Admin Acetaminophen 650 mg 03/13/21 19:30 Acetaminophen 325 Mg Tab PO Q4H PRN Pain MILD(1-3)/Fever >100.5/SALAS Albuterol/Ipratropium 1 ampul 03/13/21 20:00 03/14/21 10:53 Ipratropium/Albuterol Sulfate 3 Ml Ampul.Neb IH 1 ampul QIDRT INESSA Administration Dextrose 50 ml 03/14/21 11:02 Dextrose 50% In Water (25gm) 50 Ml Syringe IV Q30MIN PRN Hypoglycemia Protocol Famotidine 20 mg 03/13/21 22:00 03/14/21 10:30 Famotidine 20 Mg/2 Ml Inj IV 20 mg BID INESSA Administration Heparin Sodium (Porcine) 5,000 unit 03/13/21 22:00 03/14/21 10:30 Heparin 5,000 Unit/1 Ml Vial SUB-Q 5,000 unit Q12HR INESSA Administration Hydromorphone HCl 0.5 mg 03/13/21 19:35 03/13/21 22:29 Hydromorphone 1 Mg/1 Ml Inj IV 0.5 mg Q3H PRN Administration Pain , Severe (7-10) Sodium Chloride 1,000 mls @ 75 mls/hr 03/13/21 19:30 03/14/21 10:32 Nacl 0.9% 1000 Ml IV 03/14/21 12:00 75 mls/hr DIRECT INESSA Administration Azithromycin 500 mg in 250 mls @ 250 mls/hr 03/14/21 10:00 03/14/21 10:30 Zithromax/Ns IV 250 mls/hr Q24HR INESSA Administration Ceftriaxone Sodium 2 gm in 100 mls @ 200 mls/hr 03/14/21 10:00 03/14/21 10:30 Rocephin/Ns 2 Gm/100 Ml IV 200 mls/hr Q24HR INESSA Administration Protocol Propofol 1,000 mg in 100 mls @ 4.123 mls/hr 03/14/21 01:00 03/14/21 10:38 Diprivan 10 Mg/Ml IV 25 mcg/kg/min TITR INESSA 20.616 mls/hr Administration Protocol 5 MCG/KG/MIN Fentanyl Citrate 2,000 mcg in 100 mls @ 6.872 mls/hr 03/14/21 02:00 03/14/21 07:27 Fentanyl Drip Premix IV 2 mcg/kg/hr TITR INESSA 13.744 mls/hr Administration Protocol 1 MCG/KG/HR Insulin Human Lispro 0 unit 03/14/21 12:00 Insulin Lispro 100 Unit/Ml SUB-Q Q6HR [facility] Protocol Lorazepam 1 mg 03/13/21 19:40 Lorazepam 2 Mg/Ml Vial IV Q4H PRN Anxiety Methylprednisolone Sodium Succinate 80 mg 03/13/21 22:00 03/14/21 08:00 Methylprednisolone Sod Succinate 125 Mg/2 Ml Inj IV 80 mg Q8HR INESSA Administration Metoclopramide HCl 10 mg 03/13/21 19:35 Metoclopramide 10 Mg/2 Ml Inj IV Q6H PRN Nausea And Vomiting Ondansetron HCl 4 mg 03/13/21 19:30 03/13/21 22:29 Ondansetron 4 Mg/2 Ml Inj IV 4 mg Q8H PRN Administration Nausea And Vomiting Sodium Chloride 10 ml 03/13/21 22:00 03/14/21 10:31 Sodium Chloride 0.9% 10 Ml Flush Syringe IV 10 ml BID INESSA Administration Sodium Chloride 10 ml 03/13/21 19:30 Sodium Chloride 0.9% 10 Ml Flush Syringe IV PRN PRN LINE FLUSH Sodium Polystyrene Sulfonate 30 gm 03/14/21 11:04 Sodium Polystyrene 15 Gm/60 Ml Oral Liqd PO 03/14/21 11:05 ONCE ONE
[2021-03-14] MEDS: INSULIN LISPRO 100 UNIT/ML SUB-Q SCH ×2 (13:59→17:17)
[2021-03-14] MEDS ORDERED: SODIUM CHLORIDE 0.9% 500 ML 500 ML IV NR (14:00)
--- NOTE | 2021-03-14 17:15 | Consultation ---
History of Present Illness Consult date: 03/14/21 Requesting physician: BRENNAN TURNER Reason for consult: other (Acute Hypoxemic Respiratory Failure; AE-Asthma) History of present illness: PULMONARY/CCM CONSULT NOTE (Full dictation # [id number]) Please see dictated notes for full details Medications and Allergies Allergies Allergy/AdvReac Type Severity Reaction Status Date / Time acetaminophen [From Percocet] AdvReac Swelling Verified 03/13/21 12:45 hydrocodone bitartrate AdvReac Swelling Verified 03/13/21 12:45 [From Vicodin] oxycodone HCl [From Percocet] AdvReac Swelling Verified 03/13/21 12:45 Home Medications Medication Instructions Recorded Confirmed Last Taken Type Chlorhexidine Mouthwash [Peridex] 15 ml MM BID #1 bottle 10/11/20 03/13/21 Unknown Rx Clindamycin [Clindamycin CAP] 300 mg PO Q8H #21 cap 10/11/20 03/13/21 Unknown Rx Naproxen 500 mg PO Q12H PRN #12 tablet 10/11/20 03/13/21 Unknown Rx Butalb/Acetamin/Caff 50-325-40 1 - 2 tab PO Q6HR PRN #15 tab 12/05/20 03/13/21 Unknown Rx [Fioricet 50-325-40] Famotidine [Pepcid] 20 mg PO BID #30 tablet 12/05/20 03/13/21 Unknown Rx Ketorolac [Toradol] 10 mg PO Q8H PRN #20 tablet 12/05/20 03/13/21 Unknown Rx Ondansetron [Zofran Odt] 4 mg PO Q6HR PRN #20 tab.rapdis 12/05/20 03/13/21 Unknown Rx Albuterol Sulfate [Proair 90 mcg IH Q4HR PRN #2 aer.pow.ba 01/01/21 03/13/21 Unknown Rx Respiclick] Mupirocin [Bactroban 2% OINT] 1 applic TP BID 7 Days #1 tube 01/01/21 03/13/21 Unknown Rx Triamcinolone Aceton 0.1% (Nf) 1 applic TP BID 14 Days #1 tube 01/01/21 03/13/21 Unknown Rx [Kenalog (NF)] predniSONE [Deltasone] 40 mg PO QDAY #8 tab 01/01/21 03/13/21 Unknown Rx Active Meds: Active Medications Acetaminophen (Acetaminophen 325 Mg Tab) 650 mg PO Q4H PRN PRN Reason: Pain MILD(1-3)/Fever >100.5/SALAS Albuterol/Ipratropium (Ipratropium/Albuterol Sulfate 3 Ml Ampul.Neb) 1 ampul IH QIDRT [facility] Last Admin: 03/14/21 15:25 Dose: 1 ampul Documented by: Dextrose (Dextrose 50% In Water (25gm) 50 Ml Syringe) 50 ml IV Q30MIN PRN; Protocol PRN Reason: Hypoglycemia Famotidine (Famotidine 20 Mg/2 Ml Inj) 20 mg IV BID [facility] Last Admin: 03/14/21 10:30 Dose: 20 mg Documented by: Heparin Sodium (Porcine) (Heparin 5,000 Unit/1 Ml Vial) 5,000 unit SUB-Q Q12HR [facility] Last Admin: 03/14/21 10:30 Dose: 5,000 unit Documented by: Hydromorphone HCl (Hydromorphone 1 Mg/1 Ml Inj) 0.5 mg IV Q3H PRN PRN Reason: Pain , Severe (7-10) Last Admin: 03/13/21 22:29 Dose: 0.5 mg Documented by: Azithromycin (Zithromax/Ns) 500 mg in 250 mls @ 250 mls/hr IV Q24HR [facility] Last Admin: 03/14/21 10:30 Dose: 250 mls/hr Documented by: Ceftriaxone Sodium (Rocephin/Ns 2 Gm/100 Ml) 2 gm in 100 mls @ 200 mls/hr IV Q24HR [facility]; Protocol Last Admin: 03/14/21 10:30 Dose: 200 mls/hr Documented by: Propofol (Diprivan 10 Mg/Ml) 1,000 mg in 100 mls @ 4.123 mls/hr IV TITR [facility]; Protocol Last Admin: 03/14/21 14:48 Dose: 25 mcg/kg/min, 20.616 mls/hr Documented by: Fentanyl Citrate (Fentanyl Drip Premix) 2,000 mcg in 100 mls @ 6.872 mls/hr IV TITR [facility]; Protocol Last Admin: 03/14/21 14:48 Dose: 1.5 mcg/kg/hr, 10.308 mls/hr Documented by: Sodium Chloride (Nacl 0.9% 500 Ml) 500 mls @ 999 mls/hr IV ONCE NR Stop: 03/14/21 18:00 Last Admin: 03/14/21 14:02 Dose: 999 mls/hr Documented by: Insulin Human Lispro (Insulin Lispro 100 Unit/Ml) 0 unit SUB-Q Q6HR INES[facility]; Protocol Last Admin: 03/14/21 13:59 Dose: Not Given Documented by: Lorazepam (Lorazepam 2 Mg/Ml Vial) 1 mg IV Q4H PRN PRN Reason: Anxiety Methylprednisolone Sodium Succinate (Methylprednisolone Sod Succinate 125 Mg/2 Ml Inj) 80 mg IV Q8HR IN[facility] Last Admin: 03/14/21 14:11 Dose: 80 mg Documented by: Metoclopramide HCl (Metoclopramide 10 Mg/2 Ml Inj) 10 mg IV Q6H PRN PRN Reason: Nausea And Vomiting Ondansetron HCl (Ondansetron 4 Mg/2 Ml Inj) 4 mg IV Q8H PRN PRN Reason: Nausea And Vomiting Last Admin: 03/13/21 22:29 Dose: 4 mg Documented by: Sodium Chloride (Sodium Chloride 0.9% 10 Ml Flush Syringe) 10 ml IV BID INESSA Last Admin: 03/14/21 10:31 Dose: 10 ml Documented by: Sodium Chloride (Sodium Chloride 0.9% 10 Ml Flush Syringe) 10 ml IV PRN PRN PRN Reason: LINE FLUSH Physical Examination Vital signs: Vital Signs Resp Pulse Ox 26 H 89 03/13/21 12:47 03/13/21 12:47 Results - Laboratory Findings CBC and BMP: 03/14/21 06:21 03/14/21 07:47 ABG ABG pH 7.234 pH Units (7.350-7.450) L 03/14/21 03:35 ABG pCO2 54.7 mm Hg 03/14/21 03:35 ABG pO2 83.4 mm Hg (80.0-90.0) 03/14/21 03:35 ABG O2 Saturation 94.9 % (95.0-99.0) L 03/14/21 03:35 PT/INR, D-dimer PT 13.1 Sec. (12.2-14.9) 03/13/21 13:26 INR 0.89 (0.87-1.13) 03/13/21 13:26 D-Dimer 206.51 ng/mlDDU (0-234) 03/13/21 15:40 Abnormal lab findings: Abnormal Labs 03/13/21 03/13/21 03/13/21 13:26 13:26 15:40 WBC MCH 27 L RDW 17.0 H Lymph % (Auto) [place] # (Auto) Seg Neutrophils % Seg Neutrophils # ABG pH ABG pO2 ABG O2 Saturation ABG Base Excess Oxyhemoglobin Sodium 136 L Potassium Carbon Dioxide Creatinine Glucose 125 H 130 H POC Glucose Lactate Dehydrogenase 235 H C-Reactive Protein 4.30 H Total Protein Albumin Coronavirus (PCR) 03/13/21 03/14/21 03/14/21 21:33 03:35 06:21 WBC 20.0 H MCH 27 L RDW 17.5 H Lymph % (Auto) 7.8 L [place] # (Auto) 1.3 H Seg Neutrophils % 85.4 H Seg Neutrophils # 17.1 H ABG pH 7.323 L 7.234 L ABG pO2 69.8 L ABG O2 Saturation 92.9 L 94.9 L ABG Base Excess -3.3 L -5.4 L Oxyhemoglobin 91.2 L 93.2 L Sodium Potassium Carbon Dioxide Creatinine Glucose POC Glucose Lactate Dehydrogenase C-Reactive Protein Total Protein Albumin Coronavirus (PCR) 03/14/21 03/14/21 03/14/21 06:21 07:47 11:21 WBC MCH RDW Lymph % (Auto) [place] # (Auto) Seg Neutrophils % Seg Neutrophils # ABG pH ABG pO2 ABG O2 Saturation ABG Base Excess Oxyhemoglobin Sodium 136 L 136 L Potassium 6.2 H* D 5.4 H Carbon Dioxide 21 L 21 L Creatinine 1.5 H D 1.8 H Glucose 144 H 141 H POC Glucose 147 H Lactate Dehydrogenase C-Reactive Protein Total Protein 8.7 H 9.2 H Albumin 3.8 L Coronavirus (PCR) 03/14/21 Unknown WBC MCH RDW Lymph % (Auto) [place] # (Auto) Seg Neutrophils % Seg Neutrophils # ABG pH ABG pO2 ABG O2 Saturation ABG Base Excess Oxyhemoglobin Sodium Potassium Carbon Dioxide Creatinine Glucose POC Glucose Lactate Dehydrogenase C-Reactive Protein Total Protein Albumin Coronavirus (PCR) Positive A
[2021-03-14 17:48] LABS: Calcium 8.6 mg/dL (8.4-10.2)
[2021-03-14] MEDS ORDERED: LIP THERAPY VASELINE TP PRN (17:50)
[2021-03-14] MEDS ORDERED: REMDESIVIR 200 MG in SODIUM CHLORIDE 0.9% 250ML 250 ML IV ONE (17:50)
[2021-03-14] MEDS ORDERED: SODIUM CHLORIDE 0.9% 1000 ML 1,000 ML IV SCH (18:00)
[2021-03-14] MEDS ORDERED: DEXTROSE 50% IN WATER (25GM) 50 ML SYRINGE IV STA (18:03)
--- NOTE | 2021-03-14 18:20 | XRay Report ---
CHEST 1 VIEW 03/14/2021 5:53 PM INDICATION / CLINICAL INFORMATION: ETT position. COMPARISON: Earlier today at 9:37 AM. FINDINGS: SUPPORT DEVICES: The endotracheal tube has been advanced with the tip now approximately 2 cm above th e stephanie. The position of the nasogastric tube has not changed. HEART / MEDIASTINUM: Unchanged. LUNGS / PLEURA: There is probable new right lower lobe atelectasis. Patchy parenchymal disease in the left mid to lower lung has shown minimal change. No pneumothorax. ADDITIONAL FINDINGS: No significant additional findings. IMPRESSION: 1. Endotracheal tube tip is now approximately 2 cm above the stephanie. 2. Interval development of right lower lobe atelectasis. A centrally obstructing mucous plug should b e considered. Signer Name: Alex Rao MD Signed: 03/14/2021 6:16 PM Workstation Name: [id number]
[2021-03-14] MEDS ORDERED: SODIUM BICARB 8.4% 50 MEQ/50 ML SYRINGE IV ONE (19:00)
[2021-03-14] MEDS ORDERED: INSULIN REGULAR, HUMAN 100 UNITS/1 ML IV ONE (19:00)
[2021-03-14 19:22] LABS: Albumin 3.2 g/dL (3.9-5); Calcium 8.4 mg/dL (8.4-10.2)
[2021-03-14] MEDS ORDERED: SODIUM CHLORIDE 0.9% 50 ML IVPB IV SCH (21:00)
[2021-03-14] MEDS: SENNOSIDES/DOCUSATE SODIUM 8.6/50 MG TAB FEEDTUBE SCH (22:18)
[2021-03-14] MEDS: ZINC SULFATE 220 MG CAP PO SCH (22:19)
[2021-03-14] MEDS: ASCORBIC ACID 500 MG TAB PO SCH (22:19)
--- NOTE | 2021-03-15 01:31 | Consultation ---
DATE OF CONSULTATION: 03/14/2021 CONSULTING PHYSICIAN: Dr. Hernandez. REASON FOR CONSULTATION: Acute hypoxemic respiratory failure, on mechanical ventilation, acute asthma exacerbation. CHIEF COMPLAINT AND HISTORY OF PRESENT ILLNESS: As follows. The patient is a 31-year-old obese female with a past medical history significant both for asthma as well as Crohn's disease, came into the Emergency Room with severe respiratory distress, wheezing, short of breath, had been going on for about 4 days. Her home nebulizer and inhalers did not improve her symptoms. She has had difficulty ambulating/dyspnea on exertion. It is a dry cough. She is not vaccinated for COVID. She had denied any history of PEs or DVTs. Denied any real anosmia. Denied fevers or chills. In the Emergency Room, she was initially placed on bilevel positive airway pressure and ventilation therapy; however, she decompensated later in the day and required semi-emergent intubation. Post-intubation, I stopped by to see her. She was on mechanical ventilator at that time. We had to paralyze her airway to try and get her under control due to high peak pressures. When I stopped by to see her, she was doing better. No significant patient-ventilator dyssynchrony. I do not have a history of vomiting or overt aspiration. With regards to the patient's tobacco use/abuse history, she is described as a never smoker. The above is as much of the history of presentation as I have. PAST MEDICAL HISTORY: Morbid obesity, asthma, Crohn's disease. PAST SURGICAL HISTORY: Unknown. MEDICATIONS: She was on at the time I stopped by to see her, according to the medication administration record included the following: She was on Tylenol 650 mg p.o. q. 4 hours p.r.n. mild pain or fevers, DuoNeb nebulizer treatments scheduled q.i.d., Zithromax 500 mg IV daily, Rocephin 2 grams IV daily, Pepcid 20 mg IV b.i.d., fentanyl drip was going at 2 mcg per kilogram per hour, heparin 5000 units subcutaneous q. 12 hours, Dilaudid 0.5 mg IV q. 3 hours p.r.n. severe pain, insulin via sliding scale, Ativan 1 mg IV q. 4 hours p.r.n. anxiety, Solu-Medrol 80 mg IV q. 8 hours, Zofran 4 mg IV q. 8 hours p.r.n. nausea and vomiting. Propofol drip was going at 25 mcg per kilogram per minute. ALLERGIES: TYLENOL, HYDROCODONE, OXYCODONE. Nature of this allergy is unknown. DIET: Morbidly obese, acute weight loss or gain history is unknown. FAMILY AND SOCIAL HISTORY: Apparently lives in the community. According to the records, no alcohol, tobacco or illicit drug use or abuse. FAMILY HISTORY: Otherwise unknown. REVIEW OF SYSTEMS: Unobtainable secondary to the patient's medical and mental condition. Since she has been here, no gross hematochezia or melena, no gross hematuria, no hematemesis, no hemoptysis, no bloody tracheal secretions, no witnessed seizures. Review of systems is otherwise unobtainable or as in body of history above. PHYSICAL EXAMINATION: VITAL SIGNS: At presentation over here, review of vital signs shows that she was afebrile, temperature 98.5 degrees Fahrenheit, pulse of 125, respiratory rate of 26. Described as short of breath, labored, accessory muscle using, and blood pressure 155/106, O2 sats were 89%, inspired oxygen concentration at that time was not recorded. When I stopped by to see her, her O2 sats were 99% that was on the assist control mode of AC PRVC, tidal volume 450, rate had been increased to 25 earlier, PEEP of 8 on 100% FiO2. GENERAL: She is a young, obese female. Normocephalic, atraumatic on the mechanical ventilator with mildly increased respiratory effort at rest. HEAD, EYES, EARS, NOSE, AND THROAT: Anicteric. No conjunctival erythema. Oropharynx was moist. ET tube was taped at the lips around 23-24 cm. No gross jugular venous distention, no thyromegaly. Grossly, there were no palpable lymph nodes in the supraclavicular or submandibular lymph node chains. LUNGS: Auscultation of both lung mckeon significant for prolonged expiratory phase, faint expiratory wheezing, bibasilar inspiratory rales. HEART: Sounds 1 and 2 are heard, regular rate and rhythm at the time of my evaluation without overt rubs or murmurs. ABDOMEN: Soft, full, protuberant. Bowel sounds are positive, nontender, no palpable hepatosplenomegaly. EXTREMITIES: Without overt digital clubbing or cyanosis, no pedal edema. Pedal pulses are 2+ bilaterally. NEUROLOGIC: Pupils are equal, round, about 4 mm, reactive to light. Extraocular muscle movements could not be assessed. She did have some spontaneous movements to all extremities, but was sedated. SKIN: Normal turgor in the areas I examined without overt cellulitis or rash. Please see the wound care nurses' notes for full description of her skin. PSYCHIATRIC: Mood and affect could not be assessed. She was sedated. LABORATORY DATA: From my review as follows: Admission white cell count 10,600, hemoglobin 12.3, hematocrit 38.1, platelet count 230. INR was 0.89. Arterial blood gas showed a pH of 7.32, pCO2 of 45, pO2 of 70 at presentation that was on 40% FiO2. Most recent ABG: pH was 7.234, pCO2 of 55, pO2 of 83 on 100%, that is post-intubation. Serum sodium was 136 at presentation, potassium 3.8, chloride 101, bicarbonate 23, BUN 7, creatinine 0.9, glucose was 130. CRP 4.3. Procalcitonin unremarkable. Urine test was negative. Potassium was 5.4 this morning. Serum creatinine is up to 1.8. White count is up to 20,000. Coronavirus PCR is positive. Microbiology studies, no growth to date. Two sets of blood cultures, tracheal aspirate, no growth to date. A chest x-ray post-intubation shows that the ET tube tip at the thoracic inlet and riding real high about 3-4 cm above the clavicular heads, no gross pneumothorax, faint basilar infiltrates, in particular in the right lower lobe region. Otherwise, no gross pneumothorax, no gross bony fracture. KUB shows NG tube in good position. ASSESSMENT: 1. Acute hypoxemic respiratory failure, on mechanical ventilatory support. 2. Acute asthma exacerbation. 3. Morbid obesity. 4. History of Crohn's disease. 5. Metabolic acidosis. 6. Acute kidney injury. 7. Coronavirus infection. 8. Pneumonia on the right lower lobe. 9. Oropharyngeal dysphagia. 10. Obesity, if not mentioned above. PLAN: I am getting a stat chest x-ray now to ensure that there has been adequate advancement of the endotracheal tube. Ventilator-associated pneumonia bundle has been introduced. She received a dose of paralytics and that seems to have been enough to allow sedatives to be more effective. She is at a RAST scale of about -2 at this point in time. Peak pressures about 36 without any significant patient-ventilator dyssynchrony. We will continue scheduled short-acting bronchodilators q. 6 hours. I will also add long-acting bronchodilators as well as inhaled corticosteroids. We will continue systemic steroids, Solu-Medrol at the current dose 80 mg IV q. 8 hours. Enteral nutrition will be the feeding modality of choice. Oxygen will be weaned to keep sats greater than or equal to about 90%. We will complete empiric community-acquired pneumonia therapy with a positive coronavirus issue. I will empirically start her on remdesivir and I do feel that the acute kidney injury is prerenal, see if that will resolve quickly. I will also put her on gentle hydration. I will do half normal saline just in light of the thick secretions with asthma exacerbation and run that at 75 mL per hour for about 2-3 liters and reevaluate. Urine electrolytes will also be ordered. Consideration will be given for a Nephrology consult. She will be started on vitamin C and zinc supplementation. She will remain in airborne and contact isolation. Infectious disease consultation will be considered, but I will defer to the attending physician. Otherwise, she is appropriately on GI prophylaxis as well as DVT prophylaxis. Flu and pneumonia vaccination will be addressed per protocol. I will also be getting a venous thromboembolic disorder workup, but the normal D-dimers are encouraging. Thank you very much for the consult. We will follow along and make further recommendations as picture progresses/becomes clearer. She is critically ill on life-sustaining interventions including mechanical ventilatory support at very high risk of from cardiopulmonary system decompensation. At this time, I spent about 35-40 minutes of critical care time without overlap and excluding any procedural time that may be necessary. TID: [id number] RECEIPT: [id number] ROBBIE/ARGELIA
[2021-03-15 05:51] LABS: Hematocrit 34.3 % (30.3-42.9); Hemoglobin 10.8 gm/dl (10.1-14.3); Mean Corpuscular HGB Conc 32 % (30-34); Mean Corpuscular Volume 87 fl (79-97); Platelet Count 207 K/mm3 (140-440); Red Blood Count 3.97 M/mm3 (3.65-5.03); Red Cell Distribution Width 17.6 % (13.2-15.2)
[2021-03-15 05:52] LABS: Creatinine,Urine 40.1 mg/dL (0.1-20.0)
[2021-03-15 06:04] LABS: Albumin 3.1 g/dL (3.9-5); Calcium 8.6 mg/dL (8.4-10.2)
[2021-03-15] MEDS ORDERED: INSULIN REGULAR, HUMAN 100 UNITS/1 ML IV ONE (06:36)
[2021-03-15] MEDS ORDERED: ALBUTEROL 2.5 MG/3 ML NEBU IH ONE (06:40)
[2021-03-15] MEDS: INSULIN LISPRO 100 UNIT/ML SUB-Q SCH ×3 (07:24→12:12)
[2021-03-15] MEDS: methylPREDNISolone Sod Succinate 125 MG/2 ML INJ IV SCH ×3 (07:25→22:21)
[2021-03-15] MEDS ORDERED: DEXTROSE 50% IN WATER (25GM) 50 ML SYRINGE IV ONE (07:37)
[2021-03-15] MEDS ORDERED: CALCIUM GLUCONATE 1,000 MG in SODIUM CHLORIDE 0.9% 100 ML IV ONE (07:38)
[2021-03-15] MEDS ORDERED: SODIUM BICARB 8.4% 50 MEQ/50 ML SYRINGE IV ONE ×2 (07:38→10:38)
[2021-03-15] MEDS ORDERED: SODIUM POLYSTYRENE 15 GM/60 ML ORAL LIQD PO ONE (07:39)
[2021-03-15] MEDS ORDERED: SODIUM POLYSTYRENE 15 GM/60 ML ORAL LIQD PR SCH (08:30)
--- NOTE | 2021-03-15 09:22 | Consultation ---
History of Present Illness - History of Present Illness Thank you for the consultation Patient was evaluated today My assessment and plan are as follows #Acute kidney injury with rapidly worsening renal function patient creatinine w as normal upon admission Most likely etiology of renal failure appears to be resulting from acute tubular necrosis from severe respiratory failure currently intubated Patient needs immediate initiation renal placement therapy given the severity of renal failure evolving hyperkalemia acidosis etc. #Acidosis check serial ABGs, lactic acid level, #Hyperkalemia concerning evolving rapidly needs initiate initial renal placement therapy SHANNAN #Care plan was discussed with hospital medicine service to Place Vas-Cath with ICU service, he Laure is orders will be placed today #Overall prognosis appears to be guarded patient does have multiorgan failure- like picture, critically ill, continue with supportive care avoid nephrotoxic medication monitor for any meaningful recovery of renal function which may take a few daysConsented with mother re HD and CVC The patient needs immediate renal replacement therapy however Author: Benton Serrano M.D. [facility], [address] [place] [address] Tel; [phone] Source of information: Current chart History of present illness 31-year-old female who has history of asthma as well as underlying Crohn's disease morbid obesity present hospital complaints of increasing shortness of breath of 4-5 days duration with dyspnea on exertion, patient creatinine was normal upon admission, she was intubated for respiratory failure and has been noted to have rapidly worsening creatinine and now evolving hyperkalemia which is concerning, She has not been exposed to any nephrotoxic medications or radiocontrast, Past medical history: Obesity Asthma Crohn's disease Prior history of nonsteroidal medication use Current allergies: Reviewed from the current chart Social history: Reviewed from the current chart Family history: Reviewed from the current chart Review of system: Unable to obtain due to intubated status Physical examination Vitals: Reviewed General: No acute distress HEENT: Oral mucosa moist no pallor or icterus Neck: Supple without any JVD thyromegaly or nodular mass Chest: Clear to auscultation Heart: Regular rate and rhythm S1-S2 heard no S3-S4 Abdomen: Soft nontender, bowel sounds present no renal bruit no suprapubic masses no CVA tenderness noted Extremity: Minimal edema dry skin no peripheral cyanosis Endocrine: Thyroid not enlarged Psychiatric: No agitation and aggression noted Musculoskeletal: No joint effusion noted Labs and x-rays: Reviewed from this admission Medications and Allergies Allergies Allergy/AdvReac Type Severity Reaction Status Date / Time acetaminophen [From Percocet] AdvReac Swelling Verified 03/13/21 12:45 hydrocodone bitartrate AdvReac Swelling Verified 03/13/21 12:45 [From Vicodin] oxycodone HCl [From Percocet] AdvReac Swelling Verified 03/13/21 12:45 Home Medications Medication Instructions Recorded Confirmed Last Taken Type Chlorhexidine Mouthwash [Peridex] 15 ml MM BID #1 bottle 10/11/20 03/13/21 Unknown Rx Clindamycin [Clindamycin CAP] 300 mg PO Q8H #21 cap 10/11/20 03/13/21 Unknown Rx Naproxen 500 mg PO Q12H PRN #12 tablet 10/11/20 03/13/21 Unknown Rx Butalb/Acetamin/Caff 50-325-40 1 - 2 tab PO Q6HR PRN #15 tab 12/05/20 03/13/21 Unknown Rx [Fioricet 50-325-40] Famotidine [Pepcid] 20 mg PO BID #30 tablet 12/05/20 03/13/21 Unknown Rx Ketorolac [Toradol] 10 mg PO Q8H PRN #20 tablet 12/05/20 03/13/21 Unknown Rx Ondansetron [Zofran Odt] 4 mg PO Q6HR PRN #20 tab.rapdis 12/05/20 03/13/21 Unknown Rx Albuterol Sulfate [Proair 90 mcg IH Q4HR PRN #2 aer.pow.ba 01/01/21 03/13/21 Unknown Rx Respiclick] Mupirocin [Bactroban 2% OINT] 1 applic TP BID 7 Days #1 tube 01/01/21 03/13/21 Unknown Rx Triamcinolone Aceton 0.1% (Nf) 1 applic TP BID 14 Days #1 tube 01/01/21 03/13/21 Unknown Rx [Kenalog (NF)] predniSONE [Deltasone] 40 mg PO QDAY #8 tab 01/01/21 03/13/21 Unknown Rx Active Meds: Active Medications Acetaminophen (Acetaminophen 325 Mg Tab) 650 mg PO Q4H PRN PRN Reason: Pain MILD(1-3)/Fever >100.5/SALAS Albuterol/Ipratropium (Ipratropium/Albuterol Sulfate 3 Ml Ampul.Neb) 1 ampul IH QIDRT [facility] Last Admin: 03/14/21 21:36 Dose: 1 ampul Documented by: Ascorbic Acid (Ascorbic Acid 500 Mg Tab) 500 mg PO BID [facility] Last Admin: 03/14/21 22:19 Dose: 500 mg Documented by: Dextrose (Dextrose 50% In Water (25gm) 50 Ml Syringe) 50 ml IV Q30MIN PRN; Protocol PRN Reason: Hypoglycemia Famotidine (Famotidine 20 Mg/2 Ml Inj) 20 mg IV BID [facility] Last Admin: 03/14/21 22:18 Dose: 20 mg Documented by: Heparin Sodium (Porcine) (Heparin 5,000 Unit/1 Ml Vial) 5,000 unit SUB-Q Q12HR [facility] Last Admin: 03/14/21 22:17 Dose: 5,000 unit Documented by: Hydromorphone HCl (Hydromorphone 1 Mg/1 Ml Inj) 0.5 mg IV Q3H PRN PRN Reason: Pain , Severe (7-10) Last Admin: 03/13/21 22:29 Dose: 0.5 mg Documented by: Hydrophilic Ointment (Lip Therapy Vaseline) 1 applic TP Q2HR PRN PRN Reason: Dry Lips Azithromycin (Zithromax/Ns) 500 mg in 250 mls @ 250 mls/hr IV Q24HR [facility] Last Admin: 03/14/21 10:30 Dose: 250 mls/hr Documented by: Ceftriaxone Sodium (Rocephin/Ns 2 Gm/100 Ml) 2 gm in 100 mls @ 200 mls/hr IV Q24HR [facility]; Protocol Last Admin: 03/14/21 10:30 Dose: 200 mls/hr Documented by: Propofol (Diprivan 10 Mg/Ml) 1,000 mg in 100 mls @ 4.123 mls/hr IV TITR [facility]; Protocol Last Admin: 03/15/21 06:19 Dose: 25 mcg/kg/min, 20.616 mls/hr Documented by: Fentanyl Citrate (Fentanyl Drip Premix) 2,000 mcg in 100 mls @ 6.872 mls/hr IV TITR [facility]; Protocol Last Admin: 03/14/21 22:45 Dose: 2 mcg/kg/hr, 13.744 mls/hr Documented by: Sodium Chloride (Nacl 0.9% 1000 Ml) 1,000 mls @ 100 mls/hr IV DIRECT [facility] Stop: 03/18/21 03:59 Last Admin: 03/15/21 00:15 Dose: 100 mls/hr Documented by: Insulin Human Lispro (Insulin Lispro 100 Unit/Ml) 0 unit SUB-Q Q6HR [facility]; Protocol Last Admin: 03/15/21 07:25 Dose: Not Given Documented by: Lorazepam (Lorazepam 2 Mg/Ml Vial) 1 mg IV Q4H PRN PRN Reason: Anxiety Last Admin: 03/13/21 23:18 Dose: 1 mg Documented by: Methylprednisolone Sodium Succinate (Methylprednisolone Sod Succinate 125 Mg/2 Ml Inj) 80 mg IV Q8HR [facility] Last Admin: 03/15/21 07:25 Dose: 80 mg Documented by: Metoclopramide HCl (Metoclopramide 10 Mg/2 Ml Inj) 10 mg IV Q6H PRN PRN Reason: Nausea And Vomiting Multi-Ingred Cream/Lotion/Oil/Oint (Mineral Oil/Petrolatum, White Ophth Oint 3.5 Gm) 1 applic OU Q4HR PRN PRN Reason: Dry Eye(s) Ondansetron HCl (Ondansetron 4 Mg/2 Ml Inj) 4 mg IV Q8H PRN PRN Reason: Nausea And Vomiting Last Admin: 03/13/21 22:29 Dose: 4 mg Documented by: Senna/Docusate Sodium (Sennosides/Docusate Sodium 8.6/50 Mg Tab) 1 tab FEEDTUBE BID [facility] Last Admin: 03/14/21 22:18 Dose: 1 tab Documented by: Sodium Chloride (Sodium Chloride 0.9% 10 Ml Flush Syringe) 10 ml IV BID [facility] Last Admin: 03/14/21 22:18 Dose: 10 ml Documented by: Sodium Chloride (Sodium Chloride 0.9% 10 Ml Flush Syringe) 10 ml IV PRN PRN PRN Reason: LINE FLUSH Sodium Chloride (Sodium Chloride 0.9% 50 Ml Ivpb) 50 ml IV Q24HR@2100 [facility] Stop: 03/18/21 21:01 Last Admin: 03/15/21 07:24 Dose: Not Given Documented by: Sodium Polystyrene Sulfonate (Sodium Polystyrene 15 Gm/60 Ml Oral Liqd) 30 gm OK ONCE@0830 [facility] Stop: 03/15/21 12:30 Last Admin: 03/15/21 08:25 Dose: 30 gm Documented by: Zinc Sulfate (Zinc Sulfate 220 Mg Cap) 220 mg PO BID [facility] Last Admin: 03/14/21 22:19 Dose: 220 mg Documented by: Exam - Vital Signs Vital signs: Vital Signs Resp Pulse Ox 26 H 89 03/13/21 12:47 03/13/21 12:47 Results - Lab Results 03/15/21 05:09 03/15/21 05:09 Most recent lab results ABG pH 7.270 (7.320-7.450) L 03/14/21 22:23 ABG pCO2 54.7 mm Hg 03/14/21 03:35 ABG pO2 83.4 mm Hg (80.0-90.0) 03/14/21 03:35 ABG HCO3 22.6 mmol/L (20.0-26.0) 03/14/21 03:35 ABG O2 Saturation 90.9 (0-100) 03/14/21 22:23 Calcium 8.6 mg/dL (8.4-10.2) 03/15/21 05:09 Phosphorus 3.50 mg/dL (2.5-4.5) 03/14/21 18:46 Magnesium 2.30 mg/dL (1.7-2.3) 03/14/21 18:46 Urine Creatinine 40.1 mg/dL (0.1-20.0) H 03/14/21 17:50 Urine Sodium 124 mmol/L 03/14/21 17:50
[2021-03-15] MEDS: ASCORBIC ACID 500 MG TAB PO SCH ×2 (09:34→22:21)
[2021-03-15] MEDS: FAMOTIDINE 20 MG/2 ML INJ IV SCH ×2 (09:34→22:21)
[2021-03-15] MEDS: SENNOSIDES/DOCUSATE SODIUM 8.6/50 MG TAB FEEDTUBE SCH ×2 (09:34→22:21)
[2021-03-15] MEDS: HEPARIN 5,000 UNIT/1 ML VIAL SUB-Q SCH ×2 (09:34→22:18)
[2021-03-15] MEDS: ZINC SULFATE 220 MG CAP PO SCH ×2 (09:34→22:23)
[2021-03-15] MEDS: cefTRIAXone/NS 2 GM/100 ML 2 GM/100 ML BAG IV SCH (09:43)
[2021-03-15] MEDS: AZITHROMYCIN/NS 500 MG/250 ML 500 MG/250 ML BAG IV SCH (09:45)
[2021-03-15] MEDS ORDERED: METOCLOPRAMIDE 10 MG/2 ML INJ IV PRN (10:00)
[2021-03-15] MEDS ORDERED: hydrALAZINE 20 MG/1 ML INJ IV PRN (10:10)
[2021-03-15] MEDS: IPRATROPIUM/ALBUTEROL SULFATE 3 ML AMPUL.NEB IH SCH ×4 (10:24→20:57)
[2021-03-15] MEDS ORDERED: SODIUM CHLORIDE 0.9% 100 ML IV PRN (10:43)
[2021-03-15] MEDS ORDERED: fentaNYL DRIP Premix 2,000 MCG/100 ML BAG IV SCH (11:00)
[2021-03-15] MEDS: DEXTROSE 50% IN WATER (25GM) 50 ML SYRINGE IV PRN (11:40)
[2021-03-15] MEDS ORDERED: SIMPLE SYRUP 15 ML FEEDTUBE PRN ×2 (11:42)
[2021-03-15] MEDS ORDERED: LIPASE 10,500/PROTEASE 25,000/AMYLASE 43,750 (UNITS) DR CAP FEEDTUBE PRN (11:42)
[2021-03-15] MEDS ORDERED: SODIUM BICARBONATE 325 MG TAB FEEDTUBE PRN (11:42)
[2021-03-15] MEDS ORDERED: ROCURONIUM 50 MG/5 ML INJ IV ONE (12:00)
[2021-03-15] MEDS: fentaNYL DRIP Premix 2,000 MCG/100 ML BAG IV SCH ×2 (12:25→20:09)
--- NOTE | 2021-03-15 13:22 | Consultation ---
History of Present Illness - Reason for Consult Consult date: 03/15/21 COVID, sepsis Requesting physician: CRISTY PASCUAL - History of Present Illness The patient is a 31-year-old female with asthma, morbid obesity, Crohn's disease admitted with cough and shortness of breath. Noted to be significantly hypoxic requiring BiPAP. She tested positive for COVID-19. Has developed progressive renal failure. Infectious diseases was consulted for additional evaluation. Review of Systems: reviewed in the chart, unable to obtain, minimize risk of transmission Medications and Allergies Allergies Allergy/AdvReac Type Severity Reaction Status Date / Time acetaminophen [From Percocet] AdvReac Swelling Verified 03/13/21 12:45 hydrocodone bitartrate AdvReac Swelling Verified 03/13/21 12:45 [From Vicodin] oxycodone HCl [From Percocet] AdvReac Swelling Verified 03/13/21 12:45 Home Medications Medication Instructions Recorded Confirmed Last Taken Type Chlorhexidine Mouthwash [Peridex] 15 ml MM BID #1 bottle 10/11/20 03/13/21 Unknown Rx Clindamycin [Clindamycin CAP] 300 mg PO Q8H #21 cap 10/11/20 03/13/21 Unknown Rx Naproxen 500 mg PO Q12H PRN #12 tablet 10/11/20 03/13/21 Unknown Rx Butalb/Acetamin/Caff 50-325-40 1 - 2 tab PO Q6HR PRN #15 tab 12/05/20 03/13/21 Unknown Rx [Fioricet 50-325-40] Famotidine [Pepcid] 20 mg PO BID #30 tablet 12/05/20 03/13/21 Unknown Rx Ketorolac [Toradol] 10 mg PO Q8H PRN #20 tablet 12/05/20 03/13/21 Unknown Rx Ondansetron [Zofran Odt] 4 mg PO Q6HR PRN #20 tab.rapdis 12/05/20 03/13/21 Unknown Rx Albuterol Sulfate [Proair 90 mcg IH Q4HR PRN #2 aer.[email or web address] 01/01/21 03/13/21 Unknown Rx Respiclick] Mupirocin [Bactroban 2% OINT] 1 applic TP BID 7 Days #1 tube 01/01/21 03/13/21 Unknown Rx Triamcinolone Aceton 0.1% (Nf) 1 applic TP BID 14 Days #1 tube 01/01/21 03/13/21 Unknown Rx [Kenalog (NF)] predniSONE [Deltasone] 40 mg PO QDAY #8 tab 01/01/21 03/13/21 Unknown Rx Active Meds: Active Medications Acetaminophen (Acetaminophen 325 Mg Tab) 650 mg PO Q4H PRN PRN Reason: Pain MILD(1-3)/Fever >100.5/SALAS Albuterol/Ipratropium (Ipratropium/Albuterol Sulfate 3 Ml Ampul.Neb) 1 ampul IH QIDRT [facility] Last Admin: 03/15/21 11:38 Dose: Not Given Documented by: Lipase/Protease/Amylase (Lipase 10,500/Protease 25,000/Amylase 43,750 (Units) Dr White) 1 each FEEDTUBE PRN PRN PRN Reason: For Clogged Feeding Tube Ascorbic Acid (Ascorbic Acid 500 Mg Tab) 500 mg PO BID [facility] Last Admin: 03/15/21 09:34 Dose: 500 mg Documented by: Dextrose (Dextrose 50% In Water (25gm) 50 Ml Syringe) 50 ml IV Q30MIN PRN; Protocol PRN Reason: Hypoglycemia Last Admin: 03/15/21 11:40 Dose: 50 ml Documented by: Famotidine (Famotidine 20 Mg/2 Ml Inj) 10 mg IV BID [facility] Fentanyl (Fentanyl 100 Mcg/2 Ml Inj) 50 mcg IV Q10MIN PRN PRN Reason: ANALGESIA Heparin Sodium (Porcine) (Heparin 5,000 Unit/1 Ml Vial) 5,000 unit SUB-Q Q12HR [facility] Last Admin: 03/15/21 09:34 Dose: 5,000 unit Documented by: Hydralazine HCl (Hydralazine 20 Mg/1 Ml Inj) 10 mg IV Q4HR PRN PRN Reason: Hypertension Last Admin: 03/15/21 10:32 Dose: 10 mg Documented by: Hydromorphone HCl (Hydromorphone 1 Mg/1 Ml Inj) 0.5 mg IV Q3H PRN PRN Reason: Pain , Severe (7-10) Last Admin: 03/13/21 22:29 Dose: 0.5 mg Documented by: Hydrophilic Ointment (Lip Therapy Vaseline) 1 applic TP Q2HR PRN PRN Reason: Dry Lips Azithromycin (Zithromax/Ns) 500 mg in 250 mls @ 250 mls/hr IV Q24HR [facility] Last Admin: 03/15/21 09:45 Dose: 250 mls/hr Documented by: Ceftriaxone Sodium (Rocephin/Ns 2 Gm/100 Ml) 2 gm in 100 mls @ 200 mls/hr IV Q24HR [facility]; Protocol Last Admin: 03/15/21 09:43 Dose: 200 mls/hr Documented by: Propofol (Diprivan 10 Mg/Ml) 1,000 mg in 100 mls @ 4.123 mls/hr IV TITR [facility]; Protocol Last Titration: 03/15/21 12:11 Dose: 35 mcg/kg/min, 28.862 mls/hr Documented by: Fentanyl Citrate (Fentanyl Drip Premix) 2,000 mcg in 100 mls @ 6.872 mls/hr IV TITR [facility]; Protocol Last Admin: 03/15/21 12:25 Dose: 2 mcg/kg/hr, 13.744 mls/hr Documented by: Sodium Chloride (Nacl 0.9%) 100 mls @ 999 mls/hr IV KARLOS PRN PRN Reason: Hypotension TOCILIZUMAB 800 mg/ Sodium (Chloride) 140 mls @ 120 mls/hr IV ONCE ONE Stop: 03/15/21 14:29 Insulin Human Lispro (Insulin Lispro 100 Unit/Ml) 0 unit SUB-Q Q6HR [facility]; Protocol Last Admin: 03/15/21 12:12 Dose: Not Given Documented by: Lorazepam (Lorazepam 2 Mg/Ml Vial) 1 mg IV Q4H PRN PRN Reason: Anxiety Last Admin: 03/13/21 23:18 Dose: 1 mg Documented by: Methylprednisolone Sodium Succinate (Methylprednisolone Sod Succinate 125 Mg/2 Ml Inj) 80 mg IV Q8HR INES[facility] Stop: 03/23/21 14:01 Last Admin: 03/15/21 07:25 Dose: 80 mg Documented by: Metoclopramide HCl (Metoclopramide 10 Mg/2 Ml Inj) 5 mg IV Q6H PRN PRN Reason: Nausea And Vomiting Multi-Ingred Cream/Lotion/Oil/Oint (Mineral Oil/Petrolatum, White Ophth Oint 3.5 Gm) 1 applic OU Q4HR PRN PRN Reason: Dry Eye(s) Ondansetron HCl (Ondansetron 4 Mg/2 Ml Inj) 4 mg IV Q8H PRN PRN Reason: Nausea And Vomiting Last Admin: 03/13/21 22:29 Dose: 4 mg Documented by: Senna/Docusate Sodium (Sennosides/Docusate Sodium 8.6/50 Mg Tab) 1 tab FEEDTUBE BID [facility] Last Admin: 03/15/21 09:34 Dose: 1 tab Documented by: Simple Syrup (Simple Syrup 15 Ml) 15 ml FEEDTUBE PRN PRN PRN Reason: Hypoglycemia Simple Syrup (Simple Syrup 15 Ml) 30 ml FEEDTUBE PRN PRN PRN Reason: Hypoglycemia Sodium Bicarbonate (Sodium Bicarbonate 325 Mg Tab) 325 mg FEEDTUBE PRN PRN PRN Reason: For Clogged Feeding Tube Sodium Chloride (Sodium Chloride 0.9% 10 Ml Flush Syringe) 10 ml IV BID [facility] Last Admin: 03/15/21 09:45 Dose: 10 ml Documented by: Sodium Chloride (Sodium Chloride 0.9% 10 Ml Flush Syringe) 10 ml IV PRN PRN PRN Reason: LINE FLUSH Zinc Sulfate (Zinc Sulfate 220 Mg Cap) 220 mg PO BID [facility] Last Admin: 03/15/21 09:34 Dose: 220 mg Documented by: Physical Examination - Physical Exam Narrative exam: Physical Exam (reviewed in chart to minimize risk of transmission) Constitutional: deferred Head, Ears, Nose: deferred Eyes: deferred Neck: deferred Oral: deferred Cardiovascular: deferred Respiratory: deferred GI: deferred Musculoskeletal: deferred Skin: deferred Hem/Lymphatic: deferred Psych: deferred Neurological: deferred - Constitutional Vitals: Vital Signs Temp Pulse Resp BP Pulse Ox 100.4 F H 109 H 28 H 128/79 96 03/15/21 12:00 03/15/21 11:39 03/15/21 10:24 03/15/21 11:39 03/15/21 11:39 Temperature -Last 24 Hours Temperature 100.4 F Temperature 99.6 F Temperature 97.6 F Temperature 98.5 F Results - Labs CBC & Chem 7: 03/15/21 05:09 03/15/21 05:09 Labs: Abnormal lab results 03/14/21 03/14/21 03/14/21 Range/Units 17:29 17:50 18:35 WBC (4.5-11.0) K/mm3 MCH (28-32) pg RDW (13.2-15.2) % ABG pH (7.320-7.450) POC ABG pO2 (83-108) mmHg ABG Oxyhemoglobin (94-98) ABG Sodium (136.0-145.0) mmol/L ABG Potassium (3.40-4.50) mmol/L ABG Glucose (65-95) mg/dL Sodium 135 L (137-145) mmol/L Potassium 6.4 H* (3.6-5.0) mmol/L Carbon Dioxide 15 L (22-30) mmol/L BUN 26 H (7-17) mg/dL Creatinine 3.4 H D (0.6-1.2) mg/dL Glucose 165 H (65-100) mg/dL POC Glucose 209 H (70-105) mg/dL Hemoglobin A1c (4-6) % C-Reactive Protein (0.00-1.30) mg/dL Albumin (3.9-5) g/dL Arterial Blood Glucose (65-95) mg/dL Urine Creatinine 40.1 H (0.1-20.0) mg/dL Coronavirus (PCR) (Negative) 03/14/21 03/14/21 03/14/21 Range/Units 18:46 22:23 23:52 WBC (4.5-11.0) K/mm3 MCH (28-32) pg RDW (13.2-15.2) % ABG pH 7.270 L (7.320-7.450) POC ABG pO2 63.4 L (83-108) mmHg ABG Oxyhemoglobin 90.2 L (94-98) ABG Sodium 134.9 L (136.0-145.0) mmol/L ABG Potassium 5.3 H (3.40-4.50) mmol/L ABG Glucose 134 H (65-95) mg/dL Sodium 136 L (137-145) mmol/L Potassium 5.2 H (3.6-5.0) mmol/L Carbon Dioxide 20 L (22-30) mmol/L BUN 29 H (7-17) mg/dL Creatinine 3.6 H (0.6-1.2) mg/dL Glucose 236 H (65-100) mg/dL POC Glucose 128 H (70-105) mg/dL Hemoglobin A1c (4-6) % C-Reactive Protein (0.00-1.30) mg/dL Albumin 3.2 L (3.9-5) g/dL Arterial Blood Glucose 134 H (65-95) mg/dL Urine Creatinine (0.1-20.0) mg/dL Coronavirus (PCR) (Negative) 03/14/21 03/15/21 03/15/21 Range/Units Unknown 05:00 05:09 WBC 22.5 H (4.5-11.0) K/mm3 MCH 27 L (28-32) pg RDW 17.6 H (13.2-15.2) % ABG pH (7.320-7.450) POC ABG pO2 (83-108) mmHg ABG Oxyhemoglobin (94-98) ABG Sodium (136.0-145.0) mmol/L ABG Potassium (3.40-4.50) mmol/L ABG Glucose (65-95) mg/dL Sodium (137-145) mmol/L Potassium (3.6-5.0) mmol/L Carbon Dioxide (22-30) mmol/L BUN (7-17) mg/dL Creatinine (0.6-1.2) mg/dL Glucose (65-100) mg/dL POC Glucose 116 H (70-105) mg/dL Hemoglobin A1c (4-6) % C-Reactive Protein (0.00-1.30) mg/dL Albumin (3.9-5) g/dL Arterial Blood Glucose (65-95) mg/dL Urine Creatinine (0.1-20.0) mg/dL Coronavirus (PCR) Positive A (Negative) 03/15/21 03/15/21 03/15/21 Range/Units 05:09 05:09 05:09 WBC (4.5-11.0) K/mm3 MCH (28-32) pg RDW (13.2-15.2) % ABG pH (7.320-7.450) POC ABG pO2 (83-108) mmHg ABG Oxyhemoglobin (94-98) ABG Sodium (136.0-145.0) mmol/L ABG Potassium (3.40-4.50) mmol/L ABG Glucose (65-95) mg/dL Sodium 136 L (137-145) mmol/L Potassium 6.5 H* D (3.6-5.0) mmol/L Carbon Dioxide 17 L (22-30) mmol/L BUN 41 H (7-17) mg/dL Creatinine 5.3 H (0.6-1.2) mg/dL Glucose 128 H (65-100) mg/dL POC Glucose (70-105) mg/dL Hemoglobin A1c 6.3 H (4-6) % C-Reactive Protein 12.10 H (0.00-1.30) mg/dL Albumin 3.1 L (3.9-5) g/dL Arterial Blood Glucose (65-95) mg/dL Urine Creatinine (0.1-20.0) mg/dL Coronavirus (PCR) (Negative) - Imaging and Cardiology Chest x-ray: report reviewed, image reviewed Assessment and Plan Cultures: SARS CoV2 PCR: Positive 03/13/2021 blood culture: No growth A/P: 31-year-old female with asthma, morbid obesity, Crohn's disease admitted with cough and shortness of breath: #Bilateral pneumonia: Secondary to COVID-19. Severe disease. CRP has worsened to 12.1. Procalcitonin 0.05. #Acute hypoxic respiratory failure: Requiring BiPAP. #Acute renal failure: Renally adjust antibiotics. Nephrology on board, planning dialysis #Acute asthma exacerbation #Morbid obesity Recs: -IV/PO Dexamethasone x 10 days -Not a candidate for remdesivir due to renal failure -Ordered Actemra (depending on availability) -prophylactic anticoagulation based on d-dimer per hospital protocol -procalcitonin is low, abx not needed -trend d-dimer, CRP every 2-3 days -poor prognosis Donn Solano MD, FACP [facility] ([facility] O: [phone] F: [phone]
--- NOTE | 2021-03-15 13:27 | XRay Report ---
CHEST 1 VIEW 03/15/2021 12:19 PM INDICATION / CLINICAL INFORMATION: RIJ Vascath placement. COMPARISON: 03/14/2021 FINDINGS: SUPPORT DEVICES: Interval placement of a right IJ central venous catheter with tip at the cavoatrial junction. There is unchanged positioning of enteric tube and endotracheal tube HEART / MEDIASTINUM: No significant abnormality. LUNGS / PLEURA: Atelectatic changes again seen in the bilateral lung bases. There is patchy airspace opacifications also do not appear significant change from previous radiograph. No pneumothorax. ADDITIONAL FINDINGS: No significant additional findings. IMPRESSION: 1. Central line in expected position. Otherwise no significant change Signer Name: Abdirahman Goyal DO Signed: 03/15/2021 1:23 PM Workstation Name: Dr [facility]
--- NOTE | 2021-03-15 13:59 | Progress Note ---
Assessment and Plan Acute hypoxemic respiratory failure Acute asthma exacerbation Morbid obesity Crohn's disease Metabolic acidosis Acute kidney injury Coronavirus infection Pneumonia (CAP) Oropharyngeal dysphagia Obesity, if not mentioned above - S/P RIJ Vascath - HD/UF session to begin - vasopressors for target MAP > 65 mmHg - stop IVF and re-evaluate post HD/UF - receioved Kayexalate, glucose, inculin, bicarbonate and calcium for serum K+ of 6.5 - ID consult for Sepsis / COVID-19 - continue compensatory hyperventilation re: severe metabolic acidosis (Pplateau = 30; will leave peep at 10 cm H2O) - continue Daily SAT and SBT assessment as tolerated - continue accuchecks with glycemic control per SSI (While critically ill target blood glucose of 140-180 mg/dL; avoid hypoglycemia) - sedation prn for target RASS 0 to -1 - continue to wean supplemental oxygen for target O2 sat's > 90% acutely - VAP bundle addressed - continue lung protective strategies - continue bronchodilators with pulmonary hygiene per RT - wean per pulmonary driven protocols otherwise - avoid nephrotoxins, renally dose all medications - continue to avoid benzodiazepine's, reduce the possibility of delirium - empiric AB's per ID rec's - prn analgesia per CPOT score - Maintenance of sleep-wake cycle, avoid delirium - continue enteral nutritional support at goal rate as tolerated - G.I. & VTE prophylaxis - PT/OT/ROM exercises - continue mobility protocols for pressure ulcer prophylaxis - Monitor hemodynamics closely - continue other care per attending / other consultants - discharge planning ongoing concurrently COVID SPECIFIC INTERVENTIONS - Actemra ordered if available - Remdesivir as per ID/Pulmonary developed protocols (not a candidate) - continue systemic steroids for severe COVID-19 infection empirically - follow repeat COVID tests results - zinc and vitamin C supplementation - Monitor inflammatory markers per facility protocol - ferritin, Ddimer, CRP - therapeutic anticoagulation per system Protocol based on d-dimer and clinical considerations (VTE prophylaxis) - Continue contact and airborne isolation .... Re-evaluate in am & prn CONDITION: CRITICAL PROGNOSIS: GUARDED CODE STATUS: FULL CODE The high probability of a clinically significant, sudden or life-threatening deterioration of the [respiratory, cardiovascular, renal & neurologic] system(s) required my full and direct attention, intervention and personal management. The aggregate critical care time was [38] minutes without overlap. Time includes spent on; [x] Data Review and interpretation [x] Patient assessment and monitoring of vital signs [x] Documentation [x] Medication orders and management Subjective Date of service: 03/15/21 Principal diagnosis: Ac hypoxemic resp failure; AE-Asthma; SAI; Crohn's; COVID- 19; Pneumonia Interval history: Patient is seen today for: Acute hypoxemic respiratory failure; AE-Asthma; SAI; Crohn's disease; COVID-19 infection; Pneumonia (CAP) Seen and examined at bedside; 24hour events reviewed; nursing and respiratory care staff consulted; no adverse overnight events reported to me; resting in bed; azotemia is persistent and dialysis initiated; sedated; mo emesis or overt aspiration and no gross bleeding Objective Vital Signs - 12hr 03/15/21 03/15/21 03/15/21 02:00 02:16 02:30 Temperature Pulse Rate 106 H 100 H 98 H Pulse Rate [ Anterior Bilateral Throughout] Respiratory 25 H 25 H 25 H Rate Respiratory Rate [Anterior Bilateral Throughout] Blood Pressure 123/70 123/70 111/47 O2 Sat by Pulse 91 91 91 Oximetry 03/15/21 03/15/21 03/15/21 02:45 03:00 03:15 Temperature Pulse Rate 97 H 97 H 96 H Pulse Rate [ Anterior Bilateral Throughout] Respiratory 25 H 25 H 25 H Rate Respiratory Rate [Anterior Bilateral Throughout] Blood Pressure 102/48 114/52 117/59 O2 Sat by Pulse 91 91 95 Oximetry 03/15/21 03/15/21 03/15/21 03:30 03:45 04:00 Temperature Pulse Rate 97 H 100 H 98 H Pulse Rate [ Anterior Bilateral Throughout] Respiratory 25 H 25 H 25 H Rate Respiratory Rate [Anterior Bilateral Throughout] Blood Pressure 111/59 117/69 109/54 O2 Sat by Pulse 94 95 92 Oximetry 03/15/21 03/15/21 03/15/21 04:15 04:30 04:45 Temperature Pulse Rate 95 H 94 H 93 H Pulse Rate [ Anterior Bilateral Throughout] Respiratory 25 H 25 H 25 H Rate Respiratory Rate [Anterior Bilateral Throughout] Blood Pressure 105/54 99/50 94/52 O2 Sat by Pulse 92 93 93 Oximetry 03/15/21 03/15/21 03/15/21 04:59 05:00 05:15 Temperature Pulse Rate 97 H 99 H 97 H Pulse Rate [ Anterior Bilateral Throughout] Respiratory 25 H 25 H Rate Respiratory Rate [Anterior Bilateral Throughout] Blood Pressure 110/62 110/64 O2 Sat by Pulse 92 94 93 Oximetry 03/15/21 03/15/21 03/15/21 05:31 05:45 06:00 Temperature Pulse Rate 122 H 119 H 109 H Pulse Rate [ Anterior Bilateral Throughout] Respiratory 23 26 H 19 Rate Respiratory Rate [Anterior Bilateral Throughout] Blood Pressure 110/64 110/64 131/89 O2 Sat by Pulse 96 96 95 Oximetry 03/15/21 03/15/21 03/15/21 07:52 08:00 10:24 Temperature 99.6 F Pulse Rate 100 H Pulse Rate [ 116 H Anterior Bilateral Throughout] Respiratory Rate Respiratory 28 H Rate [Anterior Bilateral Throughout] Blood Pressure 141/89 O2 Sat by Pulse 100 Oximetry 03/15/21 03/15/21 03/15/21 10:30 10:32 11:39 Temperature Pulse Rate 113 H 109 H Pulse Rate [ Anterior Bilateral Throughout] Respiratory Rate Respiratory Rate [Anterior Bilateral Throughout] Blood Pressure 165/85 128/79 O2 Sat by Pulse 100 96 Oximetry 03/15/21 12:00 Temperature 100.4 F H Pulse Rate Pulse Rate [ Anterior Bilateral Throughout] Respiratory Rate Respiratory Rate [Anterior Bilateral Throughout] Blood Pressure O2 Sat by Pulse Oximetry Constitutional: no acute distress, other (morbidly obese female without significant ventilator dyssynchrony) Eyes: non-icteric ENT: oropharynx moist, other (ETT 26 cm BALJINDER) Neck: supple, no lymphadenopathy, no JVD, other (large circumference) Effort: mildly labored Ascultation: Bilateral: diminished breath sounds, rhonchi Percussion: Bilateral: not dull Cardiovascular: regular rate and rhythm Gastrointestinal: normoactive bowel sounds, soft, non-tender, non-distended (protuberant) Integumentary: normal Extremities: no cyanosis, pulses normal, no ischemia or petechiae, edema Neurologic: non-focal exam (grossly), pupils equal and round, unable to assess, other (sedated) Psychiatric: other (unasble to assess) CBC and BMP: 03/15/21 05:09 03/15/21 05:09 ABG, PT/INR, D-dimer: ABG ABG pH 7.270 (7.320-7.450) L 03/14/21 22:23 POC ABG pCO2 44.8 mmHg (32.0-48.0) 03/14/21 22:23 ABG pCO2 54.7 mm Hg 03/14/21 03:35 POC ABG pO2 63.4 mmHg (83-108) L 03/14/21 22:23 ABG pO2 83.4 mm Hg (80.0-90.0) 03/14/21 03:35 POC ABG HCO3 20.1 03/14/21 22:23 ABG O2 Saturation 90.9 (0-100) 03/14/21 22:23 PT/INR, D-dimer PT 13.1 Sec. (12.2-14.9) 03/13/21 13:26 INR 0.89 (0.87-1.13) 03/13/21 13:26 D-Dimer 206.51 ng/mlDDU (0-234) 03/13/21 15:40 Abnormal lab findings: Abnormal Labs 03/13/21 03/13/21 03/13/21 13:26 13:26 15:40 WBC MCH 27 L RDW 17.0 H Lymph % (Auto) Lares # (Auto) Seg Neutrophils % Seg Neutrophils # ABG pH POC ABG pO2 ABG pO2 ABG O2 Saturation ABG Base Excess ABG Oxyhemoglobin ABG Sodium ABG Potassium ABG Glucose Oxyhemoglobin Sodium 136 L Potassium Carbon Dioxide BUN Creatinine Glucose 125 H 130 H POC Glucose Hemoglobin A1c Lactate Dehydrogenase 235 H C-Reactive Protein 4.30 H Total Protein Albumin Arterial Blood Glucose Urine Creatinine Coronavirus (PCR) 03/13/21 03/14/21 03/14/21 21:33 03:35 06:21 WBC 20.0 H MCH 27 L RDW 17.5 H Lymph % (Auto) 7.8 L Lares # (Auto) 1.3 H Seg Neutrophils % 85.4 H Seg Neutrophils # 17.1 H ABG pH 7.323 L 7.234 L POC ABG pO2 ABG pO2 69.8 L ABG O2 Saturation 92.9 L 94.9 L ABG Base Excess -3.3 L -5.4 L ABG Oxyhemoglobin ABG Sodium ABG Potassium ABG Glucose Oxyhemoglobin 91.2 L 93.2 L Sodium Potassium Carbon Dioxide BUN Creatinine Glucose POC Glucose Hemoglobin A1c Lactate Dehydrogenase C-Reactive Protein Total Protein Albumin Arterial Blood Glucose Urine Creatinine Coronavirus (PCR) 03/14/21 03/14/21 03/14/21 06:21 07:47 11:21 WBC MCH RDW Lymph % (Auto) Lares # (Auto) Seg Neutrophils % Seg Neutrophils # ABG pH POC ABG pO2 ABG pO2 ABG O2 Saturation ABG Base Excess ABG Oxyhemoglobin ABG Sodium ABG Potassium ABG Glucose Oxyhemoglobin Sodium 136 L 136 L Potassium 6.2 H* D 5.4 H Carbon Dioxide 21 L 21 L BUN Creatinine 1.5 H D 1.8 H Glucose 144 H 141 H POC Glucose 147 H Hemoglobin A1c Lactate Dehydrogenase C-Reactive Protein Total Protein 8.7 H 9.2 H Albumin 3.8 L Arterial Blood Glucose Urine Creatinine Coronavirus (PCR) 03/14/21 03/14/21 03/14/21 17:29 17:50 18:35 WBC MCH RDW Lymph % (Auto) Lares # (Auto) Seg Neutrophils % Seg Neutrophils # ABG pH POC ABG pO2 ABG pO2 ABG O2 Saturation ABG Base Excess ABG Oxyhemoglobin ABG Sodium ABG Potassium ABG Glucose Oxyhemoglobin Sodium 135 L Potassium 6.4 H* Carbon Dioxide 15 L BUN 26 H Creatinine 3.4 H D Glucose 165 H POC Glucose 209 H Hemoglobin A1c Lactate Dehydrogenase C-Reactive Protein Total Protein Albumin Arterial Blood Glucose Urine Creatinine 40.1 H Coronavirus (PCR) 03/14/21 03/14/21 03/14/21 18:46 22:23 23:52 WBC MCH RDW Lymph % (Auto) Lares # (Auto) Seg Neutrophils % Seg Neutrophils # ABG pH 7.270 L POC ABG pO2 63.4 L ABG pO2 ABG O2 Saturation ABG Base Excess ABG Oxyhemoglobin 90.2 L ABG Sodium 134.9 L ABG Potassium 5.3 H ABG Glucose 134 H Oxyhemoglobin Sodium 136 L Potassium 5.2 H Carbon Dioxide 20 L BUN 29 H Creatinine 3.6 H Glucose 236 H POC Glucose 128 H Hemoglobin A1c Lactate Dehydrogenase C-Reactive Protein Total Protein Albumin 3.2 L Arterial Blood Glucose 134 H Urine Creatinine Coronavirus (PCR) 03/14/21 03/15/21 03/15/21 Unknown 05:00 05:09 WBC 22.5 H MCH 27 L RDW 17.6 H Lymph % (Auto) Lares # (Auto) Seg Neutrophils % Seg Neutrophils # ABG pH POC ABG pO2 ABG pO2 ABG O2 Saturation ABG Base Excess ABG Oxyhemoglobin ABG Sodium ABG Potassium ABG Glucose Oxyhemoglobin Sodium Potassium Carbon Dioxide BUN Creatinine Glucose POC Glucose 116 H Hemoglobin A1c Lactate Dehydrogenase C-Reactive Protein Total Protein Albumin Arterial Blood Glucose Urine Creatinine Coronavirus (PCR) Positive A 03/15/21 03/15/21 03/15/21 05:09 05:09 05:09 WBC MCH RDW Lymph % (Auto) Lares # (Auto) Seg Neutrophils % Seg Neutrophils # ABG pH POC ABG pO2 ABG pO2 ABG O2 Saturation ABG Base Excess ABG Oxyhemoglobin ABG Sodium ABG Potassium ABG Glucose Oxyhemoglobin Sodium 136 L Potassium 6.5 H* D Carbon Dioxide 17 L BUN 41 H Creatinine 5.3 H Glucose 128 H POC Glucose Hemoglobin A1c 6.3 H Lactate Dehydrogenase C-Reactive Protein 12.10 H Total Protein Albumin 3.1 L Arterial Blood Glucose Urine Creatinine Coronavirus (PCR) Chest x-ray: image reviewed (ETT in good position; RLL atelectasis is resolving) Allied health notes reviewed: nursing
[2021-03-15] MEDS ORDERED: TOCILIZUMAB 810 MG in SODIUM CHLORIDE 0.9% 100 ML IV SCH (15:00)
[2021-03-15] MEDS ORDERED: TOCILIZUMAB 800 MG in SODIUM CHLORIDE 0.9% 100 ML IV SCH (15:00)
[2021-03-15 15:37] LABS: Hepatitis C Virus Antibody Non-Reactive (NonReactive)
[2021-03-15 15:51] LABS: Hepatitis B Surface Antigen Nonreactive (Negative)
--- NOTE | 2021-03-15 19:47 | Procedure Note ---
Date of procedure: 03/15/21 Pre-op diagnosis: COVID-19 pneumonia, acute hypoxic respiratory failure, acute kidney injury Post-op diagnosis: same Procedure: Telephone consent obtained from mother Michelle Holt at [phone] Trialysis catheter was placed in right internal jugular. Sterile technique was utilized. Area prepped with chlorhexidine/ full body drape utilized. Ultrasound guidance was used to find and access the vessel. Line was placed without difficulty. Line was sutured, biopatch placed and tegaderm dressing applied. Chest x-ray to confirm placement. Pt tolerated procedure well. VS remained stable throughout procedure. (time spent placing line not included in daily critical care time) CCT 60 minutes Anesthesia: local Surgeon: CRISTY PASCUAL Nursing Assoc: KEIR[facility] PEOPLES Estimated blood loss: minimal Condition: critical Disposition: ICU
--- NOTE | 2021-03-15 20:21 | Progress Note ---
Assessment and Plan Assessment and plan: This is a 31-year-old female with asthma, morbid obesity and Crohn's disease admitted for COVID-19 pneumonia and and acute renal failure Neuro: Sedated - Intubated and sedated on propofol and fentanyl -changed to versed -given one time dose of Carlos for line palcement - RASS goal 0 to -1 -Daily SAT/SBT when appropriate -Maintain sleep-wake cycle -Avoid delirium -Bilateral wrist restraints in place for safety CV: Tachycardia, hypertension - ST on the monitor -As needed antihypertensive for SBP greater than 160 - Maintain MAP above 65 -Blood pressure monitoring per protocol Respiratory: Acute hypoxic respiratory failure, asthma exacerbation, COVID-19 pneumonia -DuoNeb, steroids -Patient was intubated on 03/14 for respiratory distress and inability to protect airway -Intubated with 7.50 ETT at 24 at the lip -A.m. vent settings: Assist control tidal and 450, rate 25, PEEP 10, 9 5% FiO2 -See RT notes for titration -Daily ABG and CXR for 7 days per protocol -03/15 CXR noted -VAP bundle -SPO2 monitoring -CCM/pulmonary consulted, appreciate recommendations -S/p BiPAP therapy GI: h/o MO and Crohn's disease -Nutrition consulted, appreciate recommendations -Tube feeding -Free water 100 mL every 4 hours -BR: Senokot -PPI -24 hours +699 : Acute kidney injury likely secondary to ATN, hyperkalemia, metabolic acidosis, hyponatremia -Nephrology consulted, appreciate recommendations -Patient's hyperkalemia was medically treated today with glucose, insulin, bicarb, Kayexalate and calcium prior to initiation of hemodialysis -Vas-Cath placed 03/15 -HD initiated 03/15 -Daily weights -Strict intake and output -Avoid nephrotoxic medications -Renally dose medications -Trend BMP -Intervene for electrolytes as needed ID: COVID-19 pneumonia, leukocytosis -Infectious disease consulted, appreciate recommendations -COVID-19 PCR positive -IV methylprednisone -Ordered Actemra per ID -Per ID patient is on a candidate for remdesivir due to renal failure -Patient received 1 dose of remdesivir on 03/14 -Prophylactic anticoagulation based on D-dimer -Per ID procalcitonin is low and antibiotics not needed at this time -Azithromycin and ceftriaxone discontinued -Trend COVID-19 inflammatory markers -Isolation/droplet precautions -Vitamin C/vitamin D/zinc -03/13 BC x2 no growth to date -03/14 tracheal aspirate pending -Monitor WBC and fever curve Heme: Leukocytosis -Trend CBC -Transfuse hemoglobin less than 7 -Prophylactic heparin -SCDs to bilateral lower extremity while in bed Endo: Possible some degree of insulin resistance -Hemoglobin A1c 6.3 -SSI -Accu-Cheks every 6 -Avoid hypoglycemia -Target blood glucose while critically ill 1 40-1 80 The high probability of a clinically significant, sudden or life threatening deterioration of the [multiple] system(s) required my full and direct attention, intervention and personal management. The aggregate critical care time was [60] minutes. This time is in addition to time spent performing reported procedures but includes the following: [x] Data Review and interpretation [x] Patient assessment and monitoring of vital signs [x] Documentation [x] Medication orders and management Disposition Plan: ICU Total Time Spent with Patient (Minutes): 60 History Interval history: This is a 31-year-old female with asthma, history of prior intubation x1 in 02/2019, morbid obesity and Crohn's disease who presented to the emergency department on 03/13 with complaints of severe wheezing and shortness of breath over the past 4 days which is not relieved by home nebulizer treatments or rescue inhalers, cough without fever and no loss of sense of taste or smell. Patient is currently on vaccinated for COVID-19. In the emergency department patient was placed on BiPAP given steroids magnesium Solu-Medrol with improvement, CXR shows a streak of possible pneumonia. Patient was made a COVID-19 PUI and admitted to the hospital service. Patient was initially admitted to [facility] on BiPAP and was subsequently intubated due to severe respiratory distress and inability to protect her airway. Patient was admitted with acute hypoxic respiratory failure, acute asthma exacerbation, right upper lobe pneumonia, and as a COVID-19 PUI. Hospital Course to Date: 03/14/21- Patient is s/p intubation from this morning, sedated on propofol and fentanyl RASS -3 to -4. ETT above the clavicles advanced by 2cc. Continue nebs and IV steroids per CCM. COVID swab pending. Hyperkalemia improved, X1 dose of kayaxalate ordered. Low BP and low urine output this am, fluid bolus challenge, 500cc of NS bolus given. Continue to monitor electrolytes and renal function, repeat BMP this afternoon. 03/15: Patient's renal function noted to be significantly worse today, patient was hyperkalemic and this was medically treated. Patient initiated on hemodialysis today. Patient disease was consulted today. Hospitalist Physical - Constitutional Vitals: Temp Pulse Resp BP Pulse Ox 98.8 F 80 30 H 119/68 98 03/15/21 17:30 03/15/21 20:15 03/15/21 20:15 03/15/21 20:15 03/15/21 20:15 General appearance: Present: no acute distress, well-nourished, obese, other (Intubated and sedated) - EENT Eyes: Present: PERRL, EOM intact ENT: dentition normal - Neck Neck: Present: normal ROM - Respiratory Respiratory effort: normal Respiratory: bilateral: diminished - Cardiovascular Rhythm: regular Heart Sounds: Present: S1 & S2. Absent: systolic murmur, diastolic murmur - Extremities Extremities: no ischemia, pulses intact, pulses symmetrical, No edema, normal temperature, normal color Peripheral Pulses: within normal limits - Abdominal General gastrointestinal: soft, non-tender, non-distended, normal bowel sounds - Integumentary Integumentary: Present: dry - Psychiatric Psychiatric: other (sedated) - Neurologic Neurologic: other (sedated) - Allied Health Allied health notes reviewed: nursing, RT, social work Results - Labs CBC & Chem 7: 03/15/21 05:09 03/15/21 13:55 Labs: Laboratory Last Values WBC 22.5 K/mm3 (4.5-11.0) H 03/15/21 05:09 RBC 3.97 M/mm3 (3.65-5.03) 03/15/21 05:09 Hgb 10.8 gm/dl (10.1-14.3) 03/15/21 05:09 Hct 34.3 % (30.3-42.9) 03/15/21 05:09 MCV 87 fl (79-97) 03/15/21 05:09 MCH 27 pg (28-32) L 03/15/21 05:09 MCHC 32 % (30-34) 03/15/21 05:09 RDW 17.6 % (13.2-15.2) H 03/15/21 05:09 Plt Count 207 K/mm3 (140-440) 03/15/21 05:09 Lymph % (Auto) 7.8 % (13.4-35.0) L 03/14/21 06:21 [place] % (Auto) 6.7 % (0.0-7.3) 03/14/21 06:21 Eos % (Auto) 0.0 % (0.0-4.3) 03/14/21 06:21 Baso % (Auto) 0.1 % (0.0-1.8) 03/14/21 06:21 Lymph # (Auto) 1.6 K/mm3 (1.2-5.4) 03/14/21 06:21 [place] # (Auto) 1.3 K/mm3 (0.0-0.8) H 03/14/21 06:21 Eos # (Auto) 0.0 K/mm3 (0.0-0.4) 03/14/21 06:21 Baso # (Auto) 0.0 K/mm3 (0.0-0.1) 03/14/21 06:21 Seg Neutrophils % 85.4 % (40.0-70.0) H 03/14/21 06:21 Seg Neutrophils # 17.1 K/mm3 (1.8-7.7) H 03/14/21 06:21 PT 13.1 Sec. (12.2-14.9) 03/13/21 13:26 INR 0.89 (0.87-1.13) 03/13/21 13:26 D-Dimer 206.51 ng/mlDDU (0-234) 03/13/21 15:40 ABG pH 7.098 (7.320-7.450) L 03/15/21 10:00 POC ABG pCO2 72.7 mmHg (32.0-48.0) H 03/15/21 10:00 ABG pCO2 54.7 mm Hg 03/14/21 03:35 POC ABG pO2 90.1 mmHg (83-108) 03/15/21 10:00 ABG pO2 83.4 mm Hg (80.0-90.0) 03/14/21 03:35 POC ABG HCO3 22.0 03/15/21 10:00 ABG HCO3 22.6 mmol/L (20.0-26.0) 03/14/21 03:35 ABG O2 Saturation 94.8 (0-100) 03/15/21 10:00 ABG O2 Content 17.2 (0.0-44) 03/14/21 03:35 POC ABG Base Excess -8.7 03/15/21 10:00 ABG Base Excess -5.4 mmol/L (-2.0-3.0) L 03/14/21 03:35 ABG Hemoglobin 12.4 (12.0-17.5) 03/15/21 10:00 ABG Oxyhemoglobin 94.3 (94-98) 03/15/21 10:00 ABG Carboxyhemoglobin 1.3 % (0.0-5.0) 03/14/21 03:35 ABG Methemoglobin 0.1 (0.0-1.5) 03/15/21 10:00 ABG Sodium 137.2 mmol/L (136.0-145.0) 03/15/21 10:00 ABG Potassium 5.7 mmol/L (3.40-4.50) H 03/15/21 10:00 ABG Chloride 104.0 mmol/L (98-107) 03/15/21 10:00 ABG Glucose 87 mg/dL (65-95) 03/15/21 10:00 Oxyhemoglobin 93.2 % (95.0-99.0) L 03/14/21 03:35 Carboxyhemoglobin 0.4 (0.5-1.5) L 03/15/21 10:00 FiO2 100 % 03/14/21 03:35 FiO2 % 95.0 03/15/21 10:00 Sodium 136 mmol/L (137-145) L 03/15/21 05:09 Potassium 4.8 mmol/L (3.6-5.0) D 03/15/21 13:55 Chloride 102.4 mmol/L (98-107) 03/15/21 05:09 Carbon Dioxide 17 mmol/L (22-30) L 03/15/21 05:09 Anion Gap 23 mmol/L 03/15/21 05:09 BUN 41 mg/dL (7-17) H 03/15/21 05:09 Creatinine 5.3 mg/dL (0.6-1.2) H 03/15/21 05:09 Estimated GFR 11 ml/min 03/15/21 05:09 BUN/Creatinine Ratio 8 % 03/15/21 05:09 Glucose 128 mg/dL (65-100) H 03/15/21 05:09 POC Glucose 103 mg/dL (70-105) 03/15/21 16:52 Hemoglobin A1c 6.3 % (4-6) H 03/15/21 05:09 Lactic Acid 2.00 mmol/L (0.7-2.0) 03/14/21 18:47 Calcium 8.6 mg/dL (8.4-10.2) 03/15/21 05:09 Phosphorus 3.50 mg/dL (2.5-4.5) 03/14/21 18:46 Magnesium 2.30 mg/dL (1.7-2.3) 03/14/21 18:46 Ferritin 124.9 ng/mL (10.0-200.0) 03/14/21 18:46 Total Bilirubin 0.20 mg/dL (0.1-1.2) 03/15/21 05:09 AST 32 units/L (5-40) 03/15/21 05:09 ALT 13 units/L (7-56) 03/15/21 05:09 Alkaline Phosphatase 76 units/L (35-129) 03/15/21 05:09 Lactate Dehydrogenase 235 units/L (91-180) H 03/13/21 15:40 C-Reactive Protein 12.10 mg/dL (0.00-1.30) H 03/15/21 05:09 Total Protein 7.0 g/dL (6.3-8.2) 03/15/21 05:09 Albumin 3.1 g/dL (3.9-5) L 03/15/21 05:09 Albumin/Globulin Ratio 0.8 % 03/15/21 05:09 Procalcitonin < 0.05 ng/mL (<0.15) 03/13/21 15:40 HCG, Qual Negative (Negative) 03/13/21 13:26 Arterial Blood Glucose 87 mg/dL (65-95) 03/15/21 10:00 Arterial Blood Ionized Calcium 4.6 mg/dL (4.6-5.3) 03/14/21 22:23 Urine Creatinine 40.1 mg/dL (0.1-20.0) H 03/14/21 17:50 Urine Sodium 124 mmol/L 03/14/21 17:50 Coronavirus (PCR) Positive (Negative) A 03/14/21 Unknown Hepatitis A IgM Ab Non-reactive (NonReactive) 03/15/21 05:09 Hep Bs Antigen Nonreactive (Negative) 03/15/21 05:09 Hep B Core IgM Ab Non-reactive (NonReactive) 03/15/21 05:09 Hepatitis C Antibody Non-reactive (NonReactive) 03/15/21 05:09 Microbiology: Microbiology 03/13/21 15:40 Peripheral/Venous Blood Culture - Preliminary NO GROWTH AFTER 48 HOURS 03/13/21 15:40 Peripheral/Venous Blood Culture - Preliminary NO GROWTH AFTER 48 HOURS Bazan/IV: Voiding Method Indwelling Catheter Active Medications - Current Medications Current Medications: Generic Name Dose Route Start Last Admin Trade Name Freq PRN Reason Stop Dose Admin Acetaminophen 650 mg 03/13/21 19:30 Acetaminophen 325 Mg Tab PO Q4H PRN Pain MILD(1-3)/Fever >100.5/SALAS Albuterol/Ipratropium 1 ampul 03/13/21 20:00 03/15/21 15:30 Ipratropium/Albuterol Sulfate 3 Ml Ampul.Neb IH Not Given QIDRT INESSA Lipase/Protease/Amylase 1 each 03/15/21 11:42 Lipase 10,500/Protease 25,000/Amylase 43,750 (Units) Dr White FEEDTUBE PRN PRN For Clogged Feeding Tube Ascorbic Acid 500 mg 03/14/21 22:00 03/15/21 09:34 Ascorbic Acid 500 Mg Tab PO 500 mg BID INESSA Administration Dextrose 50 ml 03/14/21 11:02 03/15/21 11:40 Dextrose 50% In Water (25gm) 50 Ml Syringe IV 50 ml Q30MIN PRN Administration Hypoglycemia Protocol Famotidine 10 mg 03/15/21 22:00 Famotidine 20 Mg/2 Ml Inj IV BID INESSA Fentanyl 50 mcg 03/15/21 10:43 Fentanyl 100 Mcg/2 Ml Inj IV Q10MIN PRN ANALGESIA Heparin Sodium (Porcine) 5,000 unit 03/13/21 22:00 03/15/21 09:34 Heparin 5,000 Unit/1 Ml Vial SUB-Q 5,000 unit Q12HR INESSA Administration Hydralazine HCl 10 mg 03/15/21 10:10 03/15/21 10:32 Hydralazine 20 Mg/1 Ml Inj IV 10 mg Q4HR PRN Administration Hypertension Hydromorphone HCl 0.5 mg 03/13/21 19:35 03/13/21 22:29 Hydromorphone 1 Mg/1 Ml Inj IV 0.5 mg Q3H PRN Administration Pain , Severe (7-10) Hydrophilic Ointment 1 applic 03/14/21 17:50 Lip Therapy Vaseline TP Q2HR PRN Dry Lips Propofol 1,000 mg in 100 mls @ 4.123 mls/hr 03/15/21 11:00 03/15/21 18:42 Diprivan 10 Mg/Ml IV 30 mcg/kg/min TITR INESSA 24.739 mls/hr Administration Protocol 5 MCG/KG/MIN Fentanyl Citrate 2,000 mcg in 100 mls @ 6.872 mls/hr 03/15/21 11:00 03/15/21 20:09 Fentanyl Drip Premix IV 2 mcg/kg/hr TITR INESSA 13.744 mls/hr Administration Protocol 1 MCG/KG/HR Sodium Chloride 100 mls @ 999 mls/hr 03/15/21 10:43 Nacl 0.9% IV KARLOS PRN Hypotension Insulin Human Lispro 0 unit 03/14/21 12:00 03/15/21 12:12 Insulin Lispro 100 Unit/Ml SUB-Q Not Given Q6HR [facility] Protocol Lorazepam 1 mg 03/13/21 19:40 03/13/21 23:18 Lorazepam 2 Mg/Ml Vial IV 1 mg Q4H PRN Administration Anxiety Methylprednisolone Sodium Succinate 80 mg 03/13/21 22:00 03/15/21 16:26 Methylprednisolone Sod Succinate 125 Mg/2 Ml Inj IV 03/23/21 14:01 80 mg Q8HR INESSA Administration Metoclopramide HCl 5 mg 03/15/21 10:00 Metoclopramide 10 Mg/2 Ml Inj IV Q6H PRN Nausea And Vomiting Multi-Ingred Cream/Lotion/Oil/Oint 1 applic 03/14/21 17:50 Mineral Oil/Petrolatum, White Ophth Oint 3.5 Gm OU Q4HR PRN Dry Eye(s) Ondansetron HCl 4 mg 03/13/21 19:30 03/13/21 22:29 Ondansetron 4 Mg/2 Ml Inj IV 4 mg Q8H PRN Administration Nausea And Vomiting Senna/Docusate Sodium 1 tab 03/14/21 22:00 03/15/21 09:34 Sennosides/Docusate Sodium 8.6/50 Mg Tab FEEDTUBE 1 tab BID INESSA Administration Simple Syrup 15 ml 03/15/21 11:42 Simple Syrup 15 Ml FEEDTUBE PRN PRN Hypoglycemia Simple Syrup 30 ml 03/15/21 11:42 Simple Syrup 15 Ml FEEDTUBE PRN PRN Hypoglycemia Sodium Bicarbonate 325 mg 03/15/21 11:42 Sodium Bicarbonate 325 Mg Tab FEEDTUBE PRN PRN For Clogged Feeding Tube Sodium Chloride 10 ml 03/13/21 22:00 03/15/21 09:45 Sodium Chloride 0.9% 10 Ml Flush Syringe IV 10 ml BID INESSA Administration Sodium Chloride 10 ml 03/13/21 19:30 Sodium Chloride 0.9% 10 Ml Flush Syringe IV PRN PRN LINE FLUSH Zinc Sulfate 220 mg 03/14/21 22:00 03/15/21 09:34 Zinc Sulfate 220 Mg Cap PO 220 mg BID INESSA Administration Nutrition/Malnutrition Assess - Dietary Evaluation Nutrition/Malnutrition Findings: Nutrition Notes Start: 03/15/21 11:06 Freq: Status: Active Protocol: Document 03/15/21 11:06 GB (Rec: 03/15/21 11:41 GB [id number]) Nutrition Notes Need for Assessment generated from: MD Order Initial or Follow up Assessment Current Diagnosis Respiratory Failure Other Pertinent Diagnosis SOB. PMHx: asthma, morbid obesity, crohn's disease Current Diet No diet order: should be NPO - Tube Feeding Labs/Tests 03/15: Na 136, K 6.5, BUN 41, creatinine 5.3, glucose 128, A1c 6.3 Pertinent Medications Vit C, azithromycin, D5(PRN), Propofol 20.616ml/hr (544kcal) , Zn Sulfate Height 5 ft 5 in Weight 137.438 kg [place] Body Weight (kg) 56.81 BMI 50.4 Weight change and time frame Admit weight. On admission, unsure of any unintentional weight loss Weight Status Morbidly Obese Subjective/Other Information Consult for TF. Pt is intubated/sedated Per MD notes: BiPap 03/13, Intubated 03/14, NG tube coiled in stomach BM: no BM recorded at time of assessment Percent of energy/protein needs met: TF at goal will meet 75% or greater of minimal EEN Burn Absent Trauma Absent GI Symptoms Constipation Difficulty In Swallowing Food Allergy No Skin Integrity/Comment No complications reported Current % PO Other Minimum of two criteria No #1 Nutrition Diagnosis Swallowing difficulty Etiology SOB, respiratory failure As Evidenced by Signs and Symptoms intubated/sedated (03/14) Is patient on ventilator? Yes Is Patient Ambulatory and/or Out of Bed No REE-([facility]-confined to bed) 2515.536 Kcal/Kg value to use for calculation 12 Approximate Energy Requirements Using 1649 kcal/Kg Calculation Used for Recommendations Kcal/kg Additional Notes Protein 0.6g/kg or greater @ 137g or greater Fluids: 1ml/kcal or per MD Nutrition Intervention Change Diet Order: NPO Nutrition Support: Vital AF 1.2 @ 55ml/hr Flush: 100ml/4hr Total free H2O/day: TF@goal + flush = 1671ml Kcal 1,584 Protein (gm) 99 Carbohydrates (gm) 145 Fat (gm) 71 Fluid (mL) 1,071 Fiber (gm) 7 Goal #1 TF started and tolerated by f/ u Goal #2 TF at goal by f/u Follow-Up By: 03/17/21 Additional Comments f/u: TF tolerance, vent status
[2021-03-15 21:58] LABS: ABG Base Excess -0.7 mmol/L (-2.0-3.0); ABG HCO3 23.8 mmol/L (20.0-26.0); ABG Methemoglobin 0.4 % (0.0-1.5); ABG PCO2 38.6 mm Hg; ABG PH 7.408 pH Units (7.350-7.450); ABG PO2 162.5 mm Hg (80.0-90.0)
[2021-03-16] MEDS: fentaNYL DRIP Premix 2,000 MCG/100 ML BAG IV SCH ×3 (02:21→17:08)
[2021-03-16 06:00] LABS: Hematocrit 30.1 % (30.3-42.9); Hemoglobin 9.6 gm/dl (10.1-14.3); Mean Corpuscular HGB Conc 32 % (30-34); Mean Corpuscular Volume 84 fl (79-97); Platelet Count 149 K/mm3 (140-440); Red Blood Count 3.59 M/mm3 (3.65-5.03); Red Cell Distribution Width 17.5 % (13.2-15.2)
[2021-03-16 06:44] LABS: C-Reactive Protein 18.6 mg/dL (0.00-1.30)
[2021-03-16] MEDS: methylPREDNISolone Sod Succinate 125 MG/2 ML INJ IV SCH (07:46)
[2021-03-16] MEDS: IPRATROPIUM/ALBUTEROL SULFATE 3 ML AMPUL.NEB IH SCH ×4 (08:19→22:00)
--- NOTE | 2021-03-16 09:06 | Electrocardiograph Report ---
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
--- NOTE | 2021-03-16 09:15 | Progress Note ---
Subjective Principal diagnosis: Ac hypoxemic resp failure; AE-Asthma; SAI; Crohn's; COVID- 19; Pneumonia Interval history: Patient was seen today for follow-up of multiple renal related issues Intubated s/p HD yestaerday Patient remains intubated, critically ill, Interdisciplinary notes were also reviewed Events of 24 hours vitals labs intake output medications were reviewed Past medical history: Reviewed Family history: Reviewed Social history: Reviewed Allergies: Reviewed Physical examination: Vitals: Reviewed HEENT:intubated Neck: Supple no JVD no thyromegaly Chest: Bilateral diminished at lung bases Heart: Regular rate and rhythm S1-S2 heard no S3-S4 Abdomen: Soft nontender no voluntary guarding rigidity rebound Extremity: Dry skin less than 1+ peripheral edema Psychiatric: No evidence of agitation and aggression noted Dermatology: No petechial rashes Labs and x-rays: Reviewed from today Assessment and plan Acute kidney injury most likely resulting from acute tubal necrosis patient was started on dialysis yesterday, will order for renal ultrasonogram imaging may be suboptimal due to her large BMI Postdialysis labs appear to be satisfactory renal care plan has been discussed with her mother yesterday Patient will likely require more frequent dialysis her BMI is 50.4 There is no emergent indication for renal placement therapy today however, likely tomorrow will check with ICU attending physician as well, with whom the renal care plan was discussed yesterday as well #Anemia: With renal failure current hemoglobin 9.6 we will start her on erythropoietin weekly #Hyponatremia: To monitor and follow #Acidosis appears to have improved postdialysis and intubation #Lactic acid 2.0 hemoglobin A1c 6.3 Ca 9.0 #hyperphosphatemia from 3.5 has gone up to 6.0 will monitor and follow binders if needed #Respiratory failure blood gases appear to be improving: Satisfactory today diagnosed with Covid 19 infection, never received vaccine, prognosis guarded #Hyperkalemia: Appears to have stabilized postdialysis time spent in critical care setting 33 minutes We'll continue to follow and make recommendation for renal standpoint Objective - Vital Signs Vital signs: Vital Signs - 12hr 03/15/21 03/15/21 03/15/21 21:15 21:30 21:45 Temperature Pulse Rate 82 78 78 Pulse Rate [ From Monitor] Respiratory 30 H 30 H 30 H Rate Blood Pressure 116/64 114/64 113/64 O2 Sat by Pulse 96 97 98 Oximetry 03/15/21 03/15/21 03/15/21 22:00 22:15 22:30 Temperature Pulse Rate 75 73 76 Pulse Rate [ From Monitor] Respiratory 30 H 30 H 30 H Rate Blood Pressure 117/67 116/63 115/64 O2 Sat by Pulse 97 98 98 Oximetry 03/15/21 03/15/21 03/15/21 22:45 23:00 23:15 Temperature Pulse Rate 73 72 71 Pulse Rate [ From Monitor] Respiratory 25 H 25 H 25 H Rate Blood Pressure 117/66 121/57 112/62 O2 Sat by Pulse 98 98 98 Oximetry 03/15/21 03/15/21 03/15/21 23:21 23:30 23:45 Temperature Pulse Rate 73 70 70 Pulse Rate [ From Monitor] Respiratory 25 H 25 H 25 H Rate Blood Pressure 112/62 117/63 120/68 O2 Sat by Pulse 98 98 99 Oximetry 03/16/21 03/16/21 03/16/21 00:00 00:15 00:30 Temperature 97.6 F Pulse Rate 68 69 74 Pulse Rate [ From Monitor] Respiratory 25 H 25 H 17 Rate Blood Pressure 116/53 107/58 113/74 O2 Sat by Pulse 98 99 100 Oximetry 03/16/21 03/16/21 03/16/21 00:45 01:00 01:15 Temperature Pulse Rate 66 65 62 Pulse Rate [ From Monitor] Respiratory 25 H 25 H 25 H Rate Blood Pressure 115/63 108/56 112/62 O2 Sat by Pulse 98 98 98 Oximetry 03/16/21 03/16/21 03/16/21 01:30 01:45 02:00 Temperature Pulse Rate 60 60 63 Pulse Rate [ From Monitor] Respiratory 25 H 25 H 25 H Rate Blood Pressure 128/79 116/66 116/64 O2 Sat by Pulse 99 98 98 Oximetry 03/16/21 03/16/21 03/16/21 02:15 02:30 02:45 Temperature Pulse Rate 61 58 L 59 L Pulse Rate [ From Monitor] Respiratory 25 H 25 H 25 H Rate Blood Pressure 110/59 123/69 122/74 O2 Sat by Pulse 98 98 98 Oximetry 03/16/21 03/16/21 03/16/21 03:00 03:15 03:30 Temperature Pulse Rate 58 L 59 L 59 L Pulse Rate [ From Monitor] Respiratory 25 H 25 H 25 H Rate Blood Pressure 124/72 121/71 124/74 O2 Sat by Pulse 98 99 99 Oximetry 03/16/21 03/16/21 03/16/21 03:45 04:00 04:15 Temperature 97.7 F Pulse Rate 59 L 56 L 57 L Pulse Rate [ From Monitor] Respiratory 25 H 25 H 25 H Rate Blood Pressure 123/76 122/73 121/70 O2 Sat by Pulse 99 98 98 Oximetry 03/16/21 03/16/21 03/16/21 04:30 04:45 05:00 Temperature Pulse Rate 57 L 58 L 57 L Pulse Rate [ From Monitor] Respiratory 25 H 25 H 25 H Rate Blood Pressure 124/73 126/78 127/76 O2 Sat by Pulse 99 99 99 Oximetry 03/16/21 03/16/21 03/16/21 05:15 05:30 05:45 Temperature Pulse Rate 56 L 56 L 58 L Pulse Rate [ From Monitor] Respiratory 25 H 25 H 25 H Rate Blood Pressure 127/72 123/73 121/73 O2 Sat by Pulse 98 99 99 Oximetry 03/16/21 03/16/21 03/16/21 06:00 06:15 08:00 Temperature Pulse Rate 55 L 84 Pulse Rate [ 56 L From Monitor] Respiratory 25 H 21 25 H Rate Blood Pressure 117/68 117/68 O2 Sat by Pulse 99 100 99 Oximetry 03/16/21 08:20 Temperature Pulse Rate 57 L Pulse Rate [ From Monitor] Respiratory Rate Blood Pressure 117/62 O2 Sat by Pulse 100 Oximetry - Lab 03/16/21 05:30 03/16/21 05:00 Most recent lab results ABG pH 7.408 pH Units (7.350-7.450) 03/15/21 21:50 ABG pCO2 38.6 mm Hg 03/15/21 21:50 ABG pO2 162.5 mm Hg (80.0-90.0) H 03/15/21 21:50 ABG HCO3 23.8 mmol/L (20.0-26.0) 03/15/21 21:50 ABG O2 Saturation 99.0 % (95.0-99.0) 03/15/21 21:50 Calcium 9.0 mg/dL (8.4-10.2) 03/16/21 05:00 Phosphorus 6.00 mg/dL (2.5-4.5) H D 03/16/21 05:30 Magnesium 2.00 mg/dL (1.7-2.3) 03/16/21 05:30 Urine Creatinine 40.1 mg/dL (0.1-20.0) H 03/14/21 17:50 Urine Sodium 124 mmol/L 03/14/21 17:50 Medications & Allergies - Medications Allergies/Adverse Reactions: Allergies acetaminophen [From Percocet] Adverse Reaction (Verified 03/13/21 12:45) Swelling hydrocodone bitartrate [From Vicodin] Adverse Reaction (Verified 03/13/21 12:45) Swelling oxycodone HCl [From Percocet] Adverse Reaction (Verified 03/13/21 12:45) Swelling Home Medications: Home Medications Medication Instructions Recorded Confirmed Last Taken Type Chlorhexidine Mouthwash [Peridex] 15 ml MM BID #1 bottle 10/11/20 03/13/21 Unknown Rx Clindamycin [Clindamycin CAP] 300 mg PO Q8H #21 cap 10/11/20 03/13/21 Unknown Rx Naproxen 500 mg PO Q12H PRN #12 tablet 10/11/20 03/13/21 Unknown Rx Butalb/Acetamin/Caff 50-325-40 1 - 2 tab PO Q6HR PRN #15 tab 12/05/20 03/13/21 Unknown Rx [Fioricet 50-325-40] Famotidine [Pepcid] 20 mg PO BID #30 tablet 12/05/20 03/13/21 Unknown Rx Ketorolac [Toradol] 10 mg PO Q8H PRN #20 tablet 12/05/20 03/13/21 Unknown Rx Ondansetron [Zofran Odt] 4 mg PO Q6HR PRN #20 tab.rapdis 12/05/20 03/13/21 Unknown Rx Albuterol Sulfate [Proair 90 mcg IH Q4HR PRN #2 aer.[email or web address].ba 01/01/21 03/13/21 Unknown Rx Respiclick] Mupirocin [Bactroban 2% OINT] 1 applic TP BID 7 Days #1 tube 01/01/21 03/13/21 Unknown Rx Triamcinolone Aceton 0.1% (Nf) 1 applic TP BID 14 Days #1 tube 01/01/21 03/13/21 Unknown Rx [Kenalog (NF)] predniSONE [Deltasone] 40 mg PO QDAY #8 tab 01/01/21 03/13/21 Unknown Rx Active Medications: Generic Name Dose Route Start Last Admin Trade Name Freq PRN Reason Stop Dose Admin Acetaminophen 650 mg 03/13/21 19:30 Acetaminophen 325 Mg Tab PO Q4H PRN Pain MILD(1-3)/Fever >100.5/SALAS Albuterol/Ipratropium 1 ampul 03/13/21 20:00 03/16/21 08:19 Ipratropium/Albuterol Sulfate 3 Ml Ampul.Neb IH Not Given QIDRT INESSA Lipase/Protease/Amylase 1 each 03/15/21 11:42 Lipase 10,500/Protease 25,000/Amylase 43,750 (Units) Dr White FEEDTUBE PRN PRN For Clogged Feeding Tube Ascorbic Acid 500 mg 03/14/21 22:00 03/15/21 22:21 Ascorbic Acid 500 Mg Tab PO 500 mg BID INESSA Administration Dextrose 50 ml 03/14/21 11:02 03/15/21 11:40 Dextrose 50% In Water (25gm) 50 Ml Syringe IV 50 ml Q30MIN PRN Administration Hypoglycemia Protocol Famotidine 10 mg 03/15/21 22:00 03/15/21 22:21 Famotidine 20 Mg/2 Ml Inj IV 10 mg BID INESSA Administration Fentanyl 50 mcg 03/15/21 10:43 Fentanyl 100 Mcg/2 Ml Inj IV Q10MIN PRN ANALGESIA Heparin Sodium (Porcine) 5,000 unit 03/13/21 22:00 03/15/21 22:18 Heparin 5,000 Unit/1 Ml Vial SUB-Q 5,000 unit Q12HR INESSA Administration Hydralazine HCl 10 mg 03/15/21 10:10 03/15/21 10:32 Hydralazine 20 Mg/1 Ml Inj IV 10 mg Q4HR PRN Administration Hypertension Hydromorphone HCl 0.5 mg 03/13/21 19:35 03/13/21 22:29 Hydromorphone 1 Mg/1 Ml Inj IV 0.5 mg Q3H PRN Administration Pain , Severe (7-10) Hydrophilic Ointment 1 applic 03/14/21 17:50 Lip Therapy Vaseline TP Q2HR PRN Dry Lips Propofol 1,000 mg in 100 mls @ 4.123 mls/hr 03/15/21 11:00 03/16/21 08:33 Diprivan 10 Mg/Ml IV 30 mcg/kg/min TITR INESSA 24.739 mls/hr Titration Protocol 5 MCG/KG/MIN Fentanyl Citrate 2,000 mcg in 100 mls @ 6.872 mls/hr 03/15/21 11:00 03/16/21 08:50 Fentanyl Drip Premix IV 2 mcg/kg/hr TITR INESSA 13.744 mls/hr Administration Protocol 1 MCG/KG/HR Sodium Chloride 100 mls @ 999 mls/hr 03/15/21 10:43 Nacl 0.9% IV KARLOS PRN Hypotension Insulin Human Lispro 0 unit 03/14/21 12:00 03/15/21 12:12 Insulin Lispro 100 Unit/Ml SUB-Q Not Given Q6HR [facility] Protocol Lorazepam 1 mg 03/13/21 19:40 03/13/21 23:18 Lorazepam 2 Mg/Ml Vial IV 1 mg Q4H PRN Administration Anxiety Methylprednisolone Sodium Succinate 80 mg 03/13/21 22:00 03/16/21 07:46 Methylprednisolone Sod Succinate 125 Mg/2 Ml Inj IV 03/23/21 14:01 80 mg Q8HR INESSA Administration Metoclopramide HCl 5 mg 03/15/21 10:00 Metoclopramide 10 Mg/2 Ml Inj IV Q6H PRN Nausea And Vomiting Multi-Ingred Cream/Lotion/Oil/Oint 1 applic 03/14/21 17:50 Mineral Oil/Petrolatum, White Ophth Oint 3.5 Gm OU Q4HR PRN Dry Eye(s) Ondansetron HCl 4 mg 03/13/21 19:30 03/13/21 22:29 Ondansetron 4 Mg/2 Ml Inj IV 4 mg Q8H PRN Administration Nausea And Vomiting Senna/Docusate Sodium 1 tab 03/14/21 22:00 03/15/21 22:21 Sennosides/Docusate Sodium 8.6/50 Mg Tab FEEDTUBE 1 tab BID INESSA Administration Simple Syrup 15 ml 03/15/21 11:42 Simple Syrup 15 Ml FEEDTUBE PRN PRN Hypoglycemia Simple Syrup 30 ml 03/15/21 11:42 Simple Syrup 15 Ml FEEDTUBE PRN PRN Hypoglycemia Sodium Bicarbonate 325 mg 03/15/21 11:42 Sodium Bicarbonate 325 Mg Tab FEEDTUBE PRN PRN For Clogged Feeding Tube Sodium Chloride 10 ml 03/13/21 22:00 03/16/21 05:54 Sodium Chloride 0.9% 10 Ml Flush Syringe IV 10 ml BID INESSA Administration Sodium Chloride 10 ml 03/13/21 19:30 Sodium Chloride 0.9% 10 Ml Flush Syringe IV PRN PRN LINE FLUSH Zinc Sulfate 220 mg 03/14/21 22:00 03/15/21 22:23 Zinc Sulfate 220 Mg Cap PO 220 mg BID INESSA Administration
[2021-03-16] MEDS: HEPARIN 5,000 UNIT/1 ML VIAL SUB-Q SCH ×2 (09:42→21:30)
[2021-03-16] MEDS: ZINC SULFATE 220 MG CAP PO SCH ×2 (09:42→21:31)
[2021-03-16] MEDS: FAMOTIDINE 20 MG/2 ML INJ IV SCH ×2 (09:42→21:30)
[2021-03-16] MEDS: SENNOSIDES/DOCUSATE SODIUM 8.6/50 MG TAB FEEDTUBE SCH (09:43)
[2021-03-16] MEDS: ASCORBIC ACID 500 MG TAB PO SCH ×2 (09:43→21:30)
[2021-03-16 09:44] LABS: ABG Base Excess -0.4 mmol/L (-2.0-3.0); ABG HCO3 24.6 mmol/L (20.0-26.0); ABG Methemoglobin 0.4 % (0.0-1.5); ABG Oxygen Saturation 98.7 % (95.0-99.0); ABG PCO2 42.2 mm Hg; ABG PH 7.383 pH Units (7.350-7.450); ABG PO2 141.5 mm Hg (80.0-90.0)
[2021-03-16] MEDS: dexAMETHasone 4 MG/ML VIAL IV SCH (09:55)
[2021-03-16] MEDS: INSULIN LISPRO 100 UNIT/ML SUB-Q SCH ×2 (12:27)
--- NOTE | 2021-03-16 13:15 | Progress Note ---
Assessment and Plan Cultures: SARS CoV2 PCR: Positive 03/13/2021 blood culture: No growth A/P: 31-year-old female with asthma, morbid obesity, Crohn's disease admitted with cough and shortness of breath: #Bilateral pneumonia: Secondary to COVID-19. Severe disease. CRP has worsened to 12.1. Procalcitonin 0.05. #Acute hypoxic respiratory failure: Requiring BiPAP. #Acute renal failure: Renally adjust antibiotics. Nephrology on board, planning dialysis #Acute asthma exacerbation #Morbid obesity Recs: -IV/PO Dexamethasone x 10 days -Not a candidate for remdesivir due to renal failure -Actemra given 03/15/2021 per pharmacy notes. -prophylactic anticoagulation based on d-dimer per hospital protocol -procalcitonin is low, abx not needed -trend d-dimer, CRP every 2-3 days -poor prognosis Champ Ling MD [facility] O: [phone] F: [phone] Subjective Date of service: 03/16/21 Principal diagnosis: Ac hypoxemic resp failure; AE-Asthma; SAI; Crohn's; COVID- 19; Pneumonia Interval history: Afebrile, white count remains elevated at 16.7, though it is improving. Cultures all remain negative. Objective - Exam Narrative Exam: Physical exam deferred to reduce risk of transmission of COVID-19. Please refer to primary team's note. - Constitutional Vitals: Vital Signs Temp Pulse Resp BP Pulse Ox 96.9 F L 70 25 H 133/70 93 03/16/21 12:00 03/16/21 13:00 03/16/21 13:00 03/16/21 13:00 03/16/21 13:00 Temperature -Last 24 Hours Temperature 96.9 F Temperature 97.7 F Temperature 97.6 F Temperature 98.8 F Temperature 98.8 F Temperature 98.9 F Temperature 100.4 F - Labs CBC & Chem 7: 03/16/21 05:30 03/16/21 05:00 Labs: Abnormal lab results 03/15/21 03/15/21 03/15/21 Range/Units 10:00 21:50 23:39 WBC (4.5-11.0) K/mm3 RBC (3.65-5.03) M/mm3 Hgb (10.1-14.3) gm/dl Hct (30.3-42.9) % MCH (28-32) pg RDW (13.2-15.2) % D-Dimer (0-234) ng/mlDDU ABG pH 7.098 L (7.320-7.450) POC ABG pCO2 72.7 H (32.0-48.0) mmHg ABG pO2 162.5 H (80.0-90.0) mm Hg ABG Hemoglobin 10.1 L (12.0-16.0) gm/dl ABG Potassium 5.7 H (3.40-4.50) mmol/L Carboxyhemoglobin 0.4 L (0.5-1.5) BUN (7-17) mg/dL Creatinine (0.6-1.2) mg/dL Glucose (65-100) mg/dL POC Glucose 156 H (70-105) mg/dL Phosphorus (2.5-4.5) mg/dL Lactate Dehydrogenase (91-180) units/L C-Reactive Protein (0.00-1.30) mg/dL Albumin (3.9-5) g/dL 03/16/21 03/16/21 03/16/21 Range/Units 05:00 05:30 05:30 WBC 16.7 H (4.5-11.0) K/mm3 RBC 3.59 L (3.65-5.03) M/mm3 Hgb 9.6 L (10.1-14.3) gm/dl Hct 30.1 L (30.3-42.9) % MCH 27 L (28-32) pg RDW 17.5 H (13.2-15.2) % D-Dimer (0-234) ng/mlDDU ABG pH (7.320-7.450) POC ABG pCO2 (32.0-48.0) mmHg ABG pO2 (80.0-90.0) mm Hg ABG Hemoglobin (12.0-16.0) gm/dl ABG Potassium (3.40-4.50) mmol/L Carboxyhemoglobin (0.5-1.5) BUN 46 H (7-17) mg/dL Creatinine 6.2 H (0.6-1.2) mg/dL Glucose 131 H (65-100) mg/dL POC Glucose (70-105) mg/dL Phosphorus 6.00 H D (2.5-4.5) mg/dL Lactate Dehydrogenase 318 H (91-180) units/L C-Reactive Protein 18.60 H (0.00-1.30) mg/dL Albumin 3.0 L (3.9-5) g/dL 03/16/21 03/16/21 03/16/21 Range/Units 05:51 06:37 08:58 WBC (4.5-11.0) K/mm3 RBC (3.65-5.03) M/mm3 Hgb (10.1-14.3) gm/dl Hct (30.3-42.9) % MCH (28-32) pg RDW (13.2-15.2) % D-Dimer 3041.12 H (0-234) ng/mlDDU ABG pH (7.320-7.450) POC ABG pCO2 (32.0-48.0) mmHg ABG pO2 141.5 H (80.0-90.0) mm Hg ABG Hemoglobin 9.7 L (12.0-16.0) gm/dl ABG Potassium (3.40-4.50) mmol/L Carboxyhemoglobin (0.5-1.5) BUN (7-17) mg/dL Creatinine (0.6-1.2) mg/dL Glucose (65-100) mg/dL POC Glucose 126 H (70-105) mg/dL Phosphorus (2.5-4.5) mg/dL Lactate Dehydrogenase (91-180) units/L C-Reactive Protein (0.00-1.30) mg/dL Albumin (3.9-5) g/dL 03/16/21 Range/Units 12:11 WBC (4.5-11.0) K/mm3 RBC (3.65-5.03) M/mm3 Hgb (10.1-14.3) gm/dl Hct (30.3-42.9) % MCH (28-32) pg RDW (13.2-15.2) % D-Dimer (0-234) ng/mlDDU ABG pH (7.320-7.450) POC ABG pCO2 (32.0-48.0) mmHg ABG pO2 (80.0-90.0) mm Hg ABG Hemoglobin (12.0-16.0) gm/dl ABG Potassium (3.40-4.50) mmol/L Carboxyhemoglobin (0.5-1.5) BUN (7-17) mg/dL Creatinine (0.6-1.2) mg/dL Glucose (65-100) mg/dL POC Glucose 156 H (70-105) mg/dL Phosphorus (2.5-4.5) mg/dL Lactate Dehydrogenase (91-180) units/L C-Reactive Protein (0.00-1.30) mg/dL Albumin (3.9-5) g/dL
--- NOTE | 2021-03-16 14:00 | Progress Note ---
Assessment and Plan Assessment and plan: This is a 31-year-old female with asthma, morbid obesity and Crohn's disease admitted for COVID-19 pneumonia and and acute renal failure Neuro: Sedated - Intubated and sedated on propofol and fentanyl -changed to versed -given one time dose of Carlos for line palcement - RASS goal 0 to -1 -Daily SAT/SBT when appropriate -Maintain sleep-wake cycle -Avoid delirium -Bilateral wrist restraints in place for safety CV: Tachycardia, hypertension - ST on the monitor -As needed antihypertensive for SBP greater than 160 - Maintain MAP above 65 -Blood pressure monitoring per protocol Respiratory: Acute hypoxic respiratory failure, asthma exacerbation, COVID-19 pneumonia -DuoNeb, steroids -Patient was intubated on 03/14 for respiratory distress and inability to protect airway -Intubated with 7.50 ETT at 24 at the lip -A.m. vent settings: Assist control tidal and 450, rate 25, PEEP 10, 95% FiO2 -See RT notes for titration -CCM decreased FiO2 80% and decreased Rate to 20 -Daily ABG and CXR for 7 days per protocol -03/16 CXR noted -VAP bundle -SPO2 monitoring -CCM/pulmonary consulted, appreciate recommendations -S/p BiPAP therapy GI: h/o MO and Crohn's disease -Nutrition consulted, appreciate recommendations -Tube feeding -changed to nephro -Free water 100 mL every 4 hours -BR: Senokot -PPI -24 hours +531 : Acute kidney injury likely secondary to ATN, hyperphosphatemia -Nephrology consulted, appreciate recommendations -Vas-Cath placed 03/15 -HD initiated 03/15 -Daily weights -Strict intake and output -Avoid nephrotoxic medications -Renally dose medications -Trend BMP -Intervene for electrolytes as needed ID: COVID-19 pneumonia, leukocytosis -Infectious disease consulted, appreciate recommendations -COVID-19 PCR positive -IV methylprednisone -Ordered Actemra per ID -Per ID patient is on a candidate for remdesivir due to renal failure -Patient received 1 dose of remdesivir on 03/14 -Prophylactic anticoagulation based on D-dimer -Per ID procalcitonin is low and antibiotics not needed at this time -Azithromycin and ceftriaxone discontinued -Trend COVID-19 inflammatory markers -Isolation/droplet precautions -Vitamin C/vitamin D/zinc -03/13 BC x2 no growth to date -03/14 tracheal aspirate pending -Monitor WBC and fever curve Heme: Leukocytosis, elevated D-dimer -Trend CBC -Transfuse hemoglobin less than 7 -Prophylactic heparin -SCDs to bilateral lower extremity while in bed Endo: Possible some degree of insulin resistance -Hemoglobin A1c 6.3 -SSI -Accu-Cheks every 6 -Avoid hypoglycemia -Target blood glucose while critically ill 140-180 The high probability of a clinically significant, sudden or life threatening deterioration of the [multiple] system(s) required my full and direct attention, intervention and personal management. The aggregate critical care time was [60] minutes. This time is in addition to time spent performing reported procedures but includes the following: [x] Data Review and interpretation [x] Patient assessment and monitoring of vital signs [x] Documentation [x] Medication orders and management Disposition Plan: icu Total Time Spent with Patient (Minutes): 60 History Interval history: This is a 31-year-old female with asthma, history of prior intubation x1 in 02/2019, morbid obesity and Crohn's disease who presented to the emergency de partment on 03/13 with complaints of severe wheezing and shortness of breath over the past 4 days which is not relieved by home nebulizer treatments or rescue inhalers, cough without fever and no loss of sense of taste or smell. Patient is currently on vaccinated for COVID-19. In the emergency department patient was placed on BiPAP given steroids magnesium Solu-Medrol with improvement, CXR shows a streak of possible pneumonia. Patient was made a COVID-19 PUI and admitted to the hospital service. Patient was initially admitted to IMCU on BiPAP and was subsequently intubated due to severe re spiratory distress and inability to protect her airway. Patient was admitted with acute hypoxic respiratory failure, acute asthma exacerbation, right upper lobe pneumonia, and as a COVID-19 PUI. Hospital Course to Date: 03/14/21- Patient is s/p intubation from this morning, sedated on propofol and fentanyl RASS -3 to -4. ETT above the clavicles advanced by 2cc. Continue nebs and IV steroids per [facility]. COVID swab pending. Hyperkalemia improved, X1 dose of kayaxalate ordered. Low BP and low urine output this am, fluid bolus challenge, 500cc of NS bolus given. Continue to monitor electrolytes and renal function, repeat BMP this afternoon. 03/15: Patient's renal function noted to be significantly worse today, patient was hyperkalemic and this was medically treated. Patient initiated on hemodi alysis today. Patient disease was consulted today. 03/16: No acute events reported overnight, patient received hemodialysis yesterday. Patient is currently on propofol and fentanyl. Hospitalist Physical - Constitutional Vitals: Temp Pulse Resp BP Pulse Ox 96.9 F L 70 25 H 133/70 93 03/16/21 12:00 03/16/21 13:00 03/16/21 13:00 03/16/21 13:00 03/16/21 13:00 General appearance: Present: no acute distress, well-nourished, obese, other (Intubated and sedated) - EENT Eyes: Present: PERRL, EOM intact ENT: dentition normal - Neck Neck: Present: normal ROM - Respiratory Respiratory effort: normal Respiratory: bilateral: diminished - Cardiovascular Rhythm: regular Heart Sounds: Present: S1 & S2. Absent: systolic murmur, diastolic murmur - Extremities Extremities: no ischemia, pulses intact, pulses symmetrical, No edema, normal temperature, normal color Peripheral Pulses: within normal limits - Abdominal General gastrointestinal: soft, non-tender, non-distended, normal bowel sounds - Integumentary Integumentary: Present: warm, dry - Psychiatric Psychiatric: other (sedated) - Neurologic Neurologic: other (sedated, responsive to verbal and physical stimuli, PERRL, intact cough/gag reflex) - Allied Health Allied health notes reviewed: nursing, RT, social work Results - Labs CBC & Chem 7: 03/16/21 05:30 03/16/21 05:00 Labs: Laboratory Last Values WBC 16.7 K/mm3 (4.5-11.0) H 03/16/21 05:30 RBC 3.59 M/mm3 (3.65-5.03) L 03/16/21 05:30 Hgb 9.6 gm/dl (10.1-14.3) L 03/16/21 05:30 Hct 30.1 % (30.3-42.9) L 03/16/21 05:30 MCV 84 fl (79-97) 03/16/21 05:30 MCH 27 pg (28-32) L 03/16/21 05:30 MCHC 32 % (30-34) 03/16/21 05:30 RDW 17.5 % (13.2-15.2) H 03/16/21 05:30 Plt Count 149 K/mm3 (140-440) 03/16/21 05:30 Lymph % (Auto) 7.8 % (13.4-35.0) L 03/14/21 06:21 Collier % (Auto) 6.7 % (0.0-7.3) 03/14/21 06:21 Eos % (Auto) 0.0 % (0.0-4.3) 03/14/21 06:21 Baso % (Auto) 0.1 % (0.0-1.8) 03/14/21 06:21 Lymph # (Auto) 1.6 K/mm3 (1.2-5.4) 03/14/21 06:21 Collier # (Auto) 1.3 K/mm3 (0.0-0.8) H 03/14/21 06:21 Eos # (Auto) 0.0 K/mm3 (0.0-0.4) 03/14/21 06:21 Baso # (Auto) 0.0 K/mm3 (0.0-0.1) 03/14/21 06:21 Seg Neutrophils % 85.4 % (40.0-70.0) H 03/14/21 06:21 Seg Neutrophils # 17.1 K/mm3 (1.8-7.7) H 03/14/21 06:21 PT 13.1 Sec. (12.2-14.9) 03/13/21 13:26 INR 0.89 (0.87-1.13) 03/13/21 13:26 D-Dimer 3041.12 ng/mlDDU (0-234) H 03/16/21 06:37 ABG pH 7.383 pH Units (7.350-7.450) 03/16/21 08:58 POC ABG pCO2 72.7 mmHg (32.0-48.0) H 03/15/21 10:00 ABG pCO2 42.2 mm Hg 03/16/21 08:58 POC ABG pO2 90.1 mmHg (83-108) 03/15/21 10:00 ABG pO2 141.5 mm Hg (80.0-90.0) H 03/16/21 08:58 POC ABG HCO3 22.0 03/15/21 10:00 ABG HCO3 24.6 mmol/L (20.0-26.0) 03/16/21 08:58 ABG O2 Saturation 98.7 % (95.0-99.0) 03/16/21 08:58 ABG O2 Content 6.5 (0.0-44) 03/16/21 08:58 POC ABG Base Excess -8.7 03/15/21 10:00 ABG Base Excess -0.4 mmol/L (-2.0-3.0) 03/16/21 08:58 ABG Hemoglobin 9.7 gm/dl (12.0-16.0) L 03/16/21 08:58 ABG Oxyhemoglobin 94.3 (94-98) 03/15/21 10:00 ABG Carboxyhemoglobin 1.1 % (0.0-5.0) 03/16/21 08:58 ABG Methemoglobin 0.4 % (0.0-1.5) 03/16/21 08:58 ABG Sodium 137.2 mmol/L (136.0-145.0) 03/15/21 10:00 ABG Potassium 5.7 mmol/L (3.40-4.50) H 03/15/21 10:00 ABG Chloride 104.0 mmol/L (98-107) 03/15/21 10:00 ABG Glucose 87 mg/dL (65-95) 03/15/21 10:00 Oxyhemoglobin 97.2 % (95.0-99.0) 03/16/21 08:58 Carboxyhemoglobin 0.4 (0.5-1.5) L 03/15/21 10:00 FiO2 95 % 03/16/21 08:58 FiO2 % 95.0 03/15/21 10:00 Sodium 143 mmol/L (137-145) D 03/16/21 05:00 Potassium 4.8 mmol/L (3.6-5.0) 03/16/21 05:00 Chloride 104.0 mmol/L (98-107) 03/16/21 05:00 Carbon Dioxide 23 mmol/L (22-30) 03/16/21 05:00 Anion Gap 21 mmol/L 03/16/21 05:00 BUN 46 mg/dL (7-17) H 03/16/21 05:00 Creatinine 6.2 mg/dL (0.6-1.2) H 03/16/21 05:00 Estimated GFR 10 ml/min 03/16/21 05:00 BUN/Creatinine Ratio 7 % 03/16/21 05:00 Glucose 131 mg/dL (65-100) H 03/16/21 05:00 POC Glucose 156 mg/dL (70-105) H 03/16/21 12:11 Hemoglobin A1c 6.3 % (4-6) H 03/15/21 05:09 Lactic Acid 2.00 mmol/L (0.7-2.0) 03/14/21 18:47 Calcium 9.0 mg/dL (8.4-10.2) 03/16/21 05:00 Phosphorus 6.00 mg/dL (2.5-4.5) H D 03/16/21 05:30 Magnesium 2.00 mg/dL (1.7-2.3) 03/16/21 05:30 Ferritin 143.2 ng/mL (10.0-200.0) 03/16/21 06:37 Total Bilirubin 0.30 mg/dL (0.1-1.2) 03/16/21 05:00 AST 29 units/L (5-40) 03/16/21 05:00 ALT 15 units/L (7-56) 03/16/21 05:00 Alkaline Phosphatase 56 units/L (35-129) 03/16/21 05:00 Lactate Dehydrogenase 318 units/L (91-180) H 03/16/21 05:30 C-Reactive Protein 18.60 mg/dL (0.00-1.30) H 03/16/21 05:30 Total Protein 6.3 g/dL (6.3-8.2) 03/16/21 05:00 Albumin 3.0 g/dL (3.9-5) L 03/16/21 05:00 Albumin/Globulin Ratio 0.9 % 03/16/21 05:00 Procalcitonin < 0.05 ng/mL (<0.15) 03/13/21 15:40 HCG, Qual Negative (Negative) 03/13/21 13:26 Arterial Blood Glucose 87 mg/dL (65-95) 03/15/21 10:00 Arterial Blood Ionized Calcium 4.6 mg/dL (4.6-5.3) 03/14/21 22:23 Urine Creatinine 40.1 mg/dL (0.1-20.0) H 03/14/21 17:50 Urine Sodium 124 mmol/L 03/14/21 17:50 Coronavirus (PCR) Positive (Negative) A 03/14/21 Unknown Hepatitis A IgM Ab Non-reactive (NonReactive) 03/15/21 05:09 Hep Bs Antigen Nonreactive (Negative) 03/15/21 05:09 Hep B Core IgM Ab Non-reactive (NonReactive) 03/15/21 05:09 Hepatitis C Antibody Non-reactive (NonReactive) 03/15/21 05:09 Microbiology: Microbiology 03/13/21 15:40 Peripheral/Venous Blood Culture - Preliminary NO GROWTH AFTER 48 HOURS 03/13/21 15:40 Peripheral/Venous Blood Culture - Preliminary NO GROWTH AFTER 48 HOURS Bazan/IV: Voiding Method Indwelling Catheter Active Medications - Current Medications Current Medications: Generic Name Dose Route Start Last Admin Trade Name Freq PRN Reason Stop Dose Admin Acetaminophen 650 mg 03/13/21 19:30 Acetaminophen 325 Mg Tab PO Q4H PRN Pain MILD(1-3)/Fever >100.5/SALAS Albuterol/Ipratropium 1 ampul 03/13/21 20:00 03/16/21 11:24 Ipratropium/Albuterol Sulfate 3 Ml Ampul.Neb IH Not Given QIDRT INESSA Lipase/Protease/Amylase 1 each 03/15/21 11:42 Lipase 10,500/Protease 25,000/Amylase 43,750 (Units) Dr White FEEDTUBE PRN PRN For Clogged Feeding Tube Ascorbic Acid 500 mg 03/14/21 22:00 03/16/21 09:43 Ascorbic Acid 500 Mg Tab PO 500 mg BID INESSA Administration Dexamethasone 6 mg 03/16/21 10:00 03/16/21 09:55 Dexamethasone 4 Mg/Ml Vial IV 03/23/21 10:01 6 mg Q24H INESSA Administration Dextrose 50 ml 03/14/21 11:02 03/15/21 11:40 Dextrose 50% In Water (25gm) 50 Ml Syringe IV 50 ml Q30MIN PRN Administration Hypoglycemia Protocol Famotidine 10 mg 03/15/21 22:00 03/16/21 09:42 Famotidine 20 Mg/2 Ml Inj IV 10 mg BID INESSA Administration Fentanyl 50 mcg 03/15/21 10:43 Fentanyl 100 Mcg/2 Ml Inj IV Q10MIN PRN ANALGESIA Heparin Sodium (Porcine) 5,000 unit 03/13/21 22:00 03/16/21 09:42 Heparin 5,000 Unit/1 Ml Vial SUB-Q 5,000 unit Q12HR INESSA Administration Hydralazine HCl 10 mg 03/15/21 10:10 03/15/21 10:32 Hydralazine 20 Mg/1 Ml Inj IV 10 mg Q4HR PRN Administration Hypertension Hydrophilic Ointment 1 applic 03/14/21 17:50 Lip Therapy Vaseline TP Q2HR PRN Dry Lips Propofol 1,000 mg in 100 mls @ 4.123 mls/hr 03/15/21 11:00 03/16/21 09:46 Diprivan 10 Mg/Ml IV 30 mcg/kg/min TITR INESSA 24.739 mls/hr Administration Protocol 5 MCG/KG/MIN Fentanyl Citrate 2,000 mcg in 100 mls @ 6.872 mls/hr 03/15/21 11:00 03/16/21 08:50 Fentanyl Drip Premix IV 2 mcg/kg/hr TITR INESSA 13.744 mls/hr Administration Protocol 1 MCG/KG/HR Sodium Chloride 100 mls @ 999 mls/hr 03/15/21 10:43 Nacl 0.9% IV KARLOS PRN Hypotension Insulin Human Lispro 0 unit 03/14/21 12:00 03/16/21 12:27 Insulin Lispro 100 Unit/Ml SUB-Q 2 unit Q6HR INESSA Administration Protocol Lorazepam 1 mg 03/13/21 19:40 03/13/21 23:18 Lorazepam 2 Mg/Ml Vial IV 1 mg Q4H PRN Administration Anxiety Metoclopramide HCl 5 mg 03/15/21 10:00 Metoclopramide 10 Mg/2 Ml Inj IV Q6H PRN Nausea And Vomiting Multi-Ingred Cream/Lotion/Oil/Oint 1 applic 03/14/21 17:50 Mineral Oil/Petrolatum, White Ophth Oint 3.5 Gm OU Q4HR PRN Dry Eye(s) Ondansetron HCl 4 mg 03/13/21 19:30 03/13/21 22:29 Ondansetron 4 Mg/2 Ml Inj IV 4 mg Q8H PRN Administration Nausea And Vomiting Senna/Docusate Sodium 1 tab 03/14/21 22:00 03/16/21 09:43 Sennosides/Docusate Sodium 8.6/50 Mg Tab FEEDTUBE 1 tab BID INESSA Administration Simple Syrup 15 ml 03/15/21 11:42 Simple Syrup 15 Ml FEEDTUBE PRN PRN Hypoglycemia Simple Syrup 30 ml 03/15/21 11:42 Simple Syrup 15 Ml FEEDTUBE PRN PRN Hypoglycemia Sodium Bicarbonate 325 mg 03/15/21 11:42 Sodium Bicarbonate 325 Mg Tab FEEDTUBE PRN PRN For Clogged Feeding Tube Sodium Chloride 10 ml 03/13/21 22:00 03/16/21 09:42 Sodium Chloride 0.9% 10 Ml Flush Syringe IV 10 ml BID INESSA Administration Sodium Chloride 10 ml 03/13/21 19:30 Sodium Chloride 0.9% 10 Ml Flush Syringe IV PRN PRN LINE FLUSH Zinc Sulfate 220 mg 03/14/21 22:00 03/16/21 09:42 Zinc Sulfate 220 Mg Cap PO 220 mg BID INESSA Administration Nutrition/Malnutrition Assess - Dietary Evaluation Nutrition/Malnutrition Findings: Nutrition Notes Start: 03/15/21 11:06 Freq: Status: Active Protocol: Document 03/15/21 11:06 GB (Rec: 03/15/21 11:41 GB [email or web address]) Nutrition Notes Need for Assessment generated from: MD Order Initial or Follow up Assessment Current Diagnosis Respiratory Failure Other Pertinent Diagnosis SOB. PMHx: asthma, morbid obesity, crohn's disease Current Diet No diet order: should be NPO - Tube Feeding Labs/Tests 03/15: Na 136, K 6.5, BUN 41, creatinine 5.3, glucose 128, A1c 6.3 Pertinent Medications Vit C, azithromycin, D5(PRN), Propofol 20.616ml/hr (544kcal) , Zn Sulfate Height 5 ft 5 in Weight 137.438 kg [place] Body Weight (kg) 56.81 BMI 50.4 Weight change and time frame Admit weight. On admission, unsure of any unintentional weight loss Weight Status Morbidly Obese Subjective/Other Information Consult for TF. Pt is intubated/sedated Per MD notes: BiPap 03/13, Intubated 03/14, NG tube coiled in stomach BM: no BM recorded at time of assessment Percent of energy/protein needs met: TF at goal will meet 75% or greater of minimal EEN Burn Absent Trauma Absent GI Symptoms Constipation Difficulty In Swallowing Food Allergy No Skin Integrity/Comment No complications reported Current % PO Other Minimum of two criteria No #1 Nutrition Diagnosis Swallowing difficulty Etiology SOB, respiratory failure As Evidenced by Signs and Symptoms intubated/sedated (03/14) Is patient on ventilator? Yes Is Patient Ambulatory and/or Out of Bed No REE-([facility] [place]-confined to bed) 2515.536 Kcal/Kg value to use for calculation 12 Approximate Energy Requirements Using 1649 kcal/Kg Calculation Used for Recommendations Kcal/kg Additional Notes Protein 0.6g/kg or greater @ 137g or greater Fluids: 1ml/kcal or per MD Nutrition Intervention Change Diet Order: NPO Nutrition Support: Vital AF 1.2 @ 55ml/hr Flush: 100ml/4hr Total free H2O/day: TF@goal + flush = 1671ml Kcal 1,584 Protein (gm) 99 Carbohydrates (gm) 145 Fat (gm) 71 Fluid (mL) 1,071 Fiber (gm) 7 Goal #1 TF started and tolerated by f/ u Goal #2 TF at goal by f/u Follow-Up By: 03/17/21 Additional Comments f/u: TF tolerance, vent status
--- NOTE | 2021-03-16 14:19 | Ultrasound Report ---
ULTRASOUND RENAL INDICATION / CLINICAL INFORMATION: acute renal failure. COMPARISON: None available. FINDINGS: RIGHT KIDNEY: Length = 11.2 cm. [normal > 9 cm] - Parenchymal Thickness = 1.6 cm. [normal > 1.5 cm] - Echogenicity: Increased - Hydronephrosis: None. - Cyst or mass: No significant abnormality. - Stones: None seen. LEFT KIDNEY: Length = 11.9 cm. [normal > 9 cm] - Parenchymal Thickness = 1.7 cm. [normal > 1.5 cm] - Echogenicity: Increased - Hydronephrosis: None. - Cyst or mass: No significant abnormality. - Stones: None seen. URINARY BLADDER: The bladder is empty and poorly evaluated. FREE FLUID: None. ADDITIONAL FINDINGS: None. IMPRESSION: Slightly echogenic kidneys consistent with medical renal disease. No focal renal lesion or hydroneph rosis. Signer Name: Leroy Loera Jr, MD Signed: 03/16/2021 2:15 PM Workstation Name: [id number]
--- NOTE | 2021-03-16 15:01 | Progress Note ---
Assessment and Plan Acute hypoxemic respiratory failure Acute asthma exacerbation Morbid obesity Crohn's disease Metabolic acidosis Acute kidney injury Coronavirus infection Pneumonia (CAP) Oropharyngeal dysphagia Obesity, if not mentioned above - CXR in am - FiO2 reduced to 80% - rate reduced to 20/min - ABG @ 9pm - continue care as below otherwise; - HD/UF session to begin - vasopressors for target MAP > 65 mmHg - ID consult for Sepsis / COVID-19 - continue compensatory hyperventilation re: severe metabolic acidosis (Pplateau = 30; will leave peep at 10 cm H2O) - continue Daily SAT and SBT assessment as tolerated - continue accuchecks with glycemic control per SSI (While critically ill target blood glucose of 140-180 mg/dL; avoid hypoglycemia) - sedation prn for target RASS 0 to -1 - continue to wean supplemental oxygen for target O2 sat's > 90% acutely - VAP bundle addressed - continue lung protective strategies - continue bronchodilators with pulmonary hygiene per RT - wean per pulmonary driven protocols otherwise - avoid nephrotoxins, renally dose all medications - continue to avoid benzodiazepine's, reduce the possibility of delirium - empiric AB's per ID rec's - prn analgesia per CPOT score - Maintenance of sleep-wake cycle, avoid delirium - continue enteral nutritional support at goal rate as tolerated - G.I. & VTE prophylaxis - PT/OT/ROM exercises - continue mobility protocols for pressure ulcer prophylaxis - Monitor hemodynamics closely - continue other care per attending / other consultants - discharge planning ongoing concurrently COVID SPECIFIC INTERVENTIONS - Actemra ordered if available - Remdesivir as per ID/Pulmonary developed protocols (not a candidate) - continue systemic steroids for severe COVID-19 infection empirically - follow repeat COVID tests results - zinc and vitamin C supplementation - Monitor inflammatory markers per facility protocol - ferritin, Ddimer, CRP - therapeutic anticoagulation per system Protocol based on d-dimer and clinical considerations (VTE prophylaxis) - Continue contact and airborne isolation .... Re-evaluate in am & prn CONDITION: CRITICAL PROGNOSIS: GUARDED CODE STATUS: FULL CODE The high probability of a clinically significant, sudden or life-threatening deterioration of the [respiratory, cardiovascular, renal & neurologic] system(s) required my full and direct attention, intervention and personal management. The aggregate critical care time was [32] minutes without overlap. Time includes spent on; [x] Data Review and interpretation [x] Patient assessment and monitoring of vital signs [x] Documentation [x] Medication orders and management Subjective Date of service: 03/16/21 Principal diagnosis: Ac hypoxemic resp failure; AE-Asthma; SAI; Crohn's; COVID- 19; Pneumonia Interval history: Patient is seen today for: Acute hypoxemic respiratory failure; AE-Asthma; SAI; Crohn's disease; COVID-19 infection; Pneumonia (CAP) Seen and examined at bedside; 24hour events reviewed; nursing and respiratory care staff consulted; no adverse overnight events reported to me; resting in bed; s/p Dialysis yesterday and tolerated well; remains on MVS; sedated but moving all extremities; remains hypopxemic with high PIP's but plateau's less than 30-35 cm H2O mostly Objective Vital Signs - 12hr 03/16/21 03/16/21 03/16/21 02:45 03:00 03:15 Temperature Pulse Rate 59 L 58 L 59 L Pulse Rate [ From Monitor] Respiratory 25 H 25 H 25 H Rate Blood Pressure 122/74 124/72 121/71 O2 Sat by Pulse 98 98 99 Oximetry 03/16/21 03/16/21 03/16/21 03:30 03:45 04:00 Temperature 97.7 F Pulse Rate 59 L 59 L 56 L Pulse Rate [ From Monitor] Respiratory 25 H 25 H 25 H Rate Blood Pressure 124/74 123/76 122/73 O2 Sat by Pulse 99 99 98 Oximetry 03/16/21 03/16/21 03/16/21 04:15 04:30 04:45 Temperature Pulse Rate 57 L 57 L 58 L Pulse Rate [ From Monitor] Respiratory 25 H 25 H 25 H Rate Blood Pressure 121/70 124/73 126/78 O2 Sat by Pulse 98 99 99 Oximetry 03/16/21 03/16/21 03/16/21 05:00 05:15 05:30 Temperature Pulse Rate 57 L 56 L 56 L Pulse Rate [ From Monitor] Respiratory 25 H 25 H 25 H Rate Blood Pressure 127/76 127/72 123/73 O2 Sat by Pulse 99 98 99 Oximetry 03/16/21 03/16/21 03/16/21 05:45 06:00 06:15 Temperature Pulse Rate 58 L 55 L 84 Pulse Rate [ From Monitor] Respiratory 25 H 25 H 21 Rate Blood Pressure 121/73 117/68 117/68 O2 Sat by Pulse 99 99 100 Oximetry 03/16/21 03/16/21 03/16/21 06:30 06:45 07:00 Temperature Pulse Rate 78 57 L 55 L Pulse Rate [ From Monitor] Respiratory 23 25 H 22 Rate Blood Pressure 141/81 141/81 116/58 O2 Sat by Pulse 100 98 99 Oximetry 03/16/21 03/16/21 03/16/21 07:15 07:30 07:45 Temperature Pulse Rate 54 L 56 L 54 L Pulse Rate [ From Monitor] Respiratory 25 H 25 H 25 H Rate Blood Pressure 121/62 117/62 115/62 O2 Sat by Pulse 98 99 98 Oximetry 03/16/21 03/16/21 03/16/21 08:00 08:15 08:20 Temperature Pulse Rate 55 L 55 L 57 L Pulse Rate [ 56 L From Monitor] Respiratory 22 25 H Rate Blood Pressure 117/63 117/62 117/62 O2 Sat by Pulse 99 99 100 Oximetry 03/16/21 03/16/21 03/16/21 08:31 08:45 09:00 Temperature Pulse Rate 59 L 57 L 63 Pulse Rate [ From Monitor] Respiratory 19 19 25 H Rate Blood Pressure 117/62 117/62 125/78 O2 Sat by Pulse 100 99 100 Oximetry 03/16/21 03/16/21 03/16/21 09:15 09:31 09:45 Temperature Pulse Rate 54 L 54 L 54 L Pulse Rate [ From Monitor] Respiratory 25 H 25 H 25 H Rate Blood Pressure 125/78 117/62 117/62 O2 Sat by Pulse 99 99 99 Oximetry 03/16/21 03/16/21 03/16/21 10:00 10:15 10:31 Temperature Pulse Rate 51 L 51 L 52 L Pulse Rate [ From Monitor] Respiratory 25 H 25 H 25 H Rate Blood Pressure 128/73 128/73 128/73 O2 Sat by Pulse 99 99 99 Oximetry 03/16/21 03/16/21 03/16/21 10:45 11:00 11:15 Temperature Pulse Rate 50 L 51 L 51 L Pulse Rate [ From Monitor] Respiratory 25 H 25 H 25 H Rate Blood Pressure 128/73 127/71 127/71 O2 Sat by Pulse 99 98 98 Oximetry 03/16/21 03/16/21 03/16/21 11:25 11:31 11:45 Temperature Pulse Rate 49 L 50 L 49 L Pulse Rate [ From Monitor] Respiratory 25 H 25 H Rate Blood Pressure 127/71 127/71 127/71 O2 Sat by Pulse 97 97 98 Oximetry 03/16/21 03/16/21 03/16/21 12:00 12:15 12:31 Temperature 96.9 F L Pulse Rate 56 L 54 L 54 L Pulse Rate [ 56 L From Monitor] Respiratory 25 H 10 L 25 H Rate Blood Pressure 131/74 131/74 131/74 O2 Sat by Pulse 100 98 98 Oximetry 03/16/21 03/16/21 12:45 13:00 Temperature Pulse Rate 83 70 Pulse Rate [ From Monitor] Respiratory 25 H 25 H Rate Blood Pressure 131/74 133/70 O2 Sat by Pulse 93 93 Oximetry Constitutional: no acute distress, other (morbidly obese female with mild ventilator dyssynchrony) Eyes: non-icteric ENT: oropharynx moist, other (ETT 26 cm BALJINDER) Neck: supple, no lymphadenopathy, no JVD, other (large circumference) Effort: mildly labored Ascultation: Bilateral: diminished breath sounds, rhonchi Percussion: Bilateral: not dull Cardiovascular: regular rate and rhythm Gastrointestinal: normoactive bowel sounds, soft, non-tender, non-distended (protuberant) Integumentary: normal Extremities: no cyanosis, no edema, pulses normal, no ischemia or petechiae Neurologic: non-focal exam (grossly), pupils equal and round, unable to assess, other (sedated) Psychiatric: other (unasble to assess) CBC and BMP: 03/16/21 05:30 03/16/21 05:00 ABG, PT/INR, D-dimer: ABG ABG pH 7.383 pH Units (7.350-7.450) 03/16/21 08:58 POC ABG pCO2 72.7 mmHg (32.0-48.0) H 03/15/21 10:00 ABG pCO2 42.2 mm Hg 03/16/21 08:58 POC ABG pO2 90.1 mmHg (83-108) 03/15/21 10:00 ABG pO2 141.5 mm Hg (80.0-90.0) H 03/16/21 08:58 POC ABG HCO3 22.0 03/15/21 10:00 ABG O2 Saturation 98.7 % (95.0-99.0) 03/16/21 08:58 PT/INR, D-dimer PT 13.1 Sec. (12.2-14.9) 03/13/21 13:26 INR 0.89 (0.87-1.13) 03/13/21 13:26 D-Dimer 3041.12 ng/mlDDU (0-234) H 03/16/21 06:37 Abnormal lab findings: Abnormal Labs 03/13/21 03/13/21 03/13/21 13:26 13:26 15:40 WBC RBC Hgb Hct MCH 27 L RDW 17.0 H Lymph % (Auto) [place] # (Auto) Seg Neutrophils % Seg Neutrophils # D-Dimer ABG pH POC ABG pCO2 POC ABG pO2 ABG pO2 ABG O2 Saturation ABG Base Excess ABG Hemoglobin ABG Oxyhemoglobin ABG Sodium ABG Potassium ABG Glucose Oxyhemoglobin Carboxyhemoglobin Sodium 136 L Potassium Carbon Dioxide BUN Creatinine Glucose 125 H 130 H POC Glucose Hemoglobin A1c Phosphorus Lactate Dehydrogenase 235 H C-Reactive Protein 4.30 H Total Protein Albumin Arterial Blood Glucose Urine Creatinine Coronavirus (PCR) 03/13/21 03/14/21 03/14/21 21:33 03:35 06:21 WBC 20.0 H RBC Hgb Hct MCH 27 L RDW 17.5 H Lymph % (Auto) 7.8 L [place] # (Auto) 1.3 H Seg Neutrophils % 85.4 H Seg Neutrophils # 17.1 H D-Dimer ABG pH 7.323 L 7.234 L POC ABG pCO2 POC ABG pO2 ABG pO2 69.8 L ABG O2 Saturation 92.9 L 94.9 L ABG Base Excess -3.3 L -5.4 L ABG Hemoglobin ABG Oxyhemoglobin ABG Sodium ABG Potassium ABG Glucose Oxyhemoglobin 91.2 L 93.2 L Carboxyhemoglobin Sodium Potassium Carbon Dioxide BUN Creatinine Glucose POC Glucose Hemoglobin A1c Phosphorus Lactate Dehydrogenase C-Reactive Protein Total Protein Albumin Arterial Blood Glucose Urine Creatinine Coronavirus (PCR) 03/14/21 03/14/21 03/14/21 06:21 07:47 11:21 WBC RBC Hgb Hct MCH RDW Lymph % (Auto) [place] # (Auto) Seg Neutrophils % Seg Neutrophils # D-Dimer ABG pH POC ABG pCO2 POC ABG pO2 ABG pO2 ABG O2 Saturation ABG Base Excess ABG Hemoglobin ABG Oxyhemoglobin ABG Sodium ABG Potassium ABG Glucose Oxyhemoglobin Carboxyhemoglobin Sodium 136 L 136 L Potassium 6.2 H* D 5.4 H Carbon Dioxide 21 L 21 L BUN Creatinine 1.5 H D 1.8 H Glucose 144 H 141 H POC Glucose 147 H Hemoglobin A1c Phosphorus Lactate Dehydrogenase C-Reactive Protein Total Protein 8.7 H 9.2 H Albumin 3.8 L Arterial Blood Glucose Urine Creatinine Coronavirus (PCR) 03/14/21 03/14/21 03/14/21 17:29 17:50 18:35 WBC RBC Hgb Hct MCH RDW Lymph % (Auto) [place] # (Auto) Seg Neutrophils % Seg Neutrophils # D-Dimer ABG pH POC ABG pCO2 POC ABG pO2 ABG pO2 ABG O2 Saturation ABG Base Excess ABG Hemoglobin ABG Oxyhemoglobin ABG Sodium ABG Potassium ABG Glucose Oxyhemoglobin Carboxyhemoglobin Sodium 135 L Potassium 6.4 H* Carbon Dioxide 15 L BUN 26 H Creatinine 3.4 H D Glucose 165 H POC Glucose 209 H Hemoglobin A1c Phosphorus Lactate Dehydrogenase C-Reactive Protein Total Protein Albumin Arterial Blood Glucose Urine Creatinine 40.1 H Coronavirus (PCR) 03/14/21 03/14/21 03/14/21 18:46 22:23 23:52 WBC RBC Hgb Hct MCH RDW Lymph % (Auto) [place] # (Auto) Seg Neutrophils % Seg Neutrophils # D-Dimer ABG pH 7.270 L POC ABG pCO2 POC ABG pO2 63.4 L ABG pO2 ABG O2 Saturation ABG Base Excess ABG Hemoglobin ABG Oxyhemoglobin 90.2 L ABG Sodium 134.9 L ABG Potassium 5.3 H ABG Glucose 134 H Oxyhemoglobin Carboxyhemoglobin Sodium 136 L Potassium 5.2 H Carbon Dioxide 20 L BUN 29 H Creatinine 3.6 H Glucose 236 H POC Glucose 128 H Hemoglobin A1c Phosphorus Lactate Dehydrogenase C-Reactive Protein Total Protein Albumin 3.2 L Arterial Blood Glucose 134 H Urine Creatinine Coronavirus (PCR) 03/14/21 03/15/21 03/15/21 Unknown 05:00 05:09 WBC 22.5 H RBC Hgb Hct MCH 27 L RDW 17.6 H Lymph % (Auto) [place] # (Auto) Seg Neutrophils % Seg Neutrophils # D-Dimer ABG pH POC ABG pCO2 POC ABG pO2 ABG pO2 ABG O2 Saturation ABG Base Excess ABG Hemoglobin ABG Oxyhemoglobin ABG Sodium ABG Potassium ABG Glucose Oxyhemoglobin Carboxyhemoglobin Sodium Potassium Carbon Dioxide BUN Creatinine Glucose POC Glucose 116 H Hemoglobin A1c Phosphorus Lactate Dehydrogenase C-Reactive Protein Total Protein Albumin Arterial Blood Glucose Urine Creatinine Coronavirus (PCR) Positive A 03/15/21 03/15/21 03/15/21 05:09 05:09 05:09 WBC RBC Hgb Hct MCH RDW Lymph % (Auto) [place] # (Auto) Seg Neutrophils % Seg Neutrophils # D-Dimer ABG pH POC ABG pCO2 POC ABG pO2 ABG pO2 ABG O2 Saturation ABG Base Excess ABG Hemoglobin ABG Oxyhemoglobin ABG Sodium ABG Potassium ABG Glucose Oxyhemoglobin Carboxyhemoglobin Sodium 136 L Potassium 6.5 H* D Carbon Dioxide 17 L BUN 41 H Creatinine 5.3 H Glucose 128 H POC Glucose Hemoglobin A1c 6.3 H Phosphorus Lactate Dehydrogenase C-Reactive Protein 12.10 H Total Protein Albumin 3.1 L Arterial Blood Glucose Urine Creatinine Coronavirus (PCR) 03/15/21 03/15/21 03/15/21 10:00 21:50 23:39 WBC RBC Hgb Hct MCH RDW Lymph % (Auto) [place] # (Auto) Seg Neutrophils % Seg Neutrophils # D-Dimer ABG pH 7.098 L POC ABG pCO2 72.7 H POC ABG pO2 ABG pO2 162.5 H ABG O2 Saturation ABG Base Excess ABG Hemoglobin 10.1 L ABG Oxyhemoglobin ABG Sodium ABG Potassium 5.7 H ABG Glucose Oxyhemoglobin Carboxyhemoglobin 0.4 L Sodium Potassium Carbon Dioxide BUN Creatinine Glucose POC Glucose 156 H Hemoglobin A1c Phosphorus Lactate Dehydrogenase C-Reactive Protein Total Protein Albumin Arterial Blood Glucose Urine Creatinine Coronavirus (PCR) 03/16/21 03/16/21 03/16/21 05:00 05:30 05:30 WBC 16.7 H RBC 3.59 L Hgb 9.6 L Hct 30.1 L MCH 27 L RDW 17.5 H Lymph % (Auto) [place] # (Auto) Seg Neutrophils % Seg Neutrophils # D-Dimer ABG pH POC ABG pCO2 POC ABG pO2 ABG pO2 ABG O2 Saturation ABG Base Excess ABG Hemoglobin ABG Oxyhemoglobin ABG Sodium ABG Potassium ABG Glucose Oxyhemoglobin Carboxyhemoglobin Sodium Potassium Carbon Dioxide BUN 46 H Creatinine 6.2 H Glucose 131 H POC Glucose Hemoglobin A1c Phosphorus 6.00 H D Lactate Dehydrogenase 318 H C-Reactive Protein 18.60 H Total Protein Albumin 3.0 L Arterial Blood Glucose Urine Creatinine Coronavirus (PCR) 03/16/21 03/16/21 03/16/21 05:51 06:37 08:58 WBC RBC Hgb Hct MCH RDW Lymph % (Auto) [place] # (Auto) Seg Neutrophils % Seg Neutrophils # D-Dimer 3041.12 H ABG pH POC ABG pCO2 POC ABG pO2 ABG pO2 141.5 H ABG O2 Saturation ABG Base Excess ABG Hemoglobin 9.7 L ABG Oxyhemoglobin ABG Sodium ABG Potassium ABG Glucose Oxyhemoglobin Carboxyhemoglobin Sodium Potassium Carbon Dioxide BUN Creatinine Glucose POC Glucose 126 H Hemoglobin A1c Phosphorus Lactate Dehydrogenase C-Reactive Protein Total Protein Albumin Arterial Blood Glucose Urine Creatinine Coronavirus (PCR) 03/16/21 12:11 WBC RBC Hgb Hct MCH RDW Lymph % (Auto) [place] # (Auto) Seg Neutrophils % Seg Neutrophils # D-Dimer ABG pH POC ABG pCO2 POC ABG pO2 ABG pO2 ABG O2 Saturation ABG Base Excess ABG Hemoglobin ABG Oxyhemoglobin ABG Sodium ABG Potassium ABG Glucose Oxyhemoglobin Carboxyhemoglobin Sodium Potassium Carbon Dioxide BUN Creatinine Glucose POC Glucose 156 H Hemoglobin A1c Phosphorus Lactate Dehydrogenase C-Reactive Protein Total Protein Albumin Arterial Blood Glucose Urine Creatinine Coronavirus (PCR) Chest x-ray: pending Allied health notes reviewed: nursing
[2021-03-16] MEDS ORDERED: SODIUM CHLORIDE 0.9% 500 ML 500 ML IV PRN (17:19)
--- NOTE | 2021-03-16 18:51 | Electrocardiograph Report ---
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
[2021-03-17] MEDS: fentaNYL DRIP Premix 2,000 MCG/100 ML BAG IV SCH ×6 (00:41→21:53)
[2021-03-17] MEDS: INSULIN LISPRO 100 UNIT/ML SUB-Q SCH ×4 (00:48→17:25)
--- NOTE | 2021-03-17 04:34 | XRay Report ---
CHEST 1 VIEW INDICATION: hypoxia. COMPARISON: 2 days prior FINDINGS: Support devices: Unchanged. Heart: Stable. Lungs/Pleura: Pleural parenchymal disease in the right lung is stable. No pneumothorax is seen. IMPRESSION: 1. No significant change. Signer Name: Marty Flower MD Signed: 03/17/2021 4:29 AM Workstation Name: [id number]
[2021-03-17 05:43] LABS: Hematocrit 31.5 % (30.3-42.9); Hemoglobin 10.2 gm/dl (10.1-14.3); Mean Corpuscular HGB Conc 33 % (30-34); Mean Corpuscular Volume 84 fl (79-97); Platelet Count 167 K/mm3 (140-440); Red Blood Count 3.74 M/mm3 (3.65-5.03); Red Cell Distribution Width 17.4 % (13.2-15.2)
[2021-03-17 06:02] LABS: Calcium 8.7 mg/dL (8.4-10.2)
[2021-03-17 06:06] LABS: Albumin 3.2 g/dL (3.9-5); Calcium 8.6 mg/dL (8.4-10.2)
[2021-03-17] MEDS ORDERED: SODIUM CHLORIDE 0.9% 100 ML IV PRN (08:28)
[2021-03-17] MEDS: HEPARIN 5,000 UNIT/1 ML VIAL SUB-Q SCH ×2 (09:08→23:37)
[2021-03-17] MEDS: ZINC SULFATE 220 MG CAP PO SCH ×2 (09:08→23:38)
[2021-03-17] MEDS: SENNOSIDES/DOCUSATE SODIUM 8.6/50 MG TAB FEEDTUBE SCH ×3 (09:08→23:40)
[2021-03-17] MEDS: ASCORBIC ACID 500 MG TAB PO SCH ×2 (09:09→23:38)
[2021-03-17] MEDS: FAMOTIDINE 20 MG/2 ML INJ IV SCH (09:10)
[2021-03-17] MEDS: dexAMETHasone 4 MG/ML VIAL IV SCH (09:21)
[2021-03-17] MEDS: IPRATROPIUM/ALBUTEROL SULFATE 3 ML AMPUL.NEB IH SCH ×4 (09:28→20:44)
[2021-03-17 11:22] LABS: ABG Base Excess -1.9 mmol/L (-2.0-3.0); ABG HCO3 24.9 mmol/L (20.0-26.0); ABG Methemoglobin 0.5 % (0.0-1.5); ABG Oxygen Saturation 96.7 % (95.0-99.0); ABG PCO2 52.4 mm Hg; ABG PH 7.294 pH Units (7.350-7.450); ABG PO2 90.3 mm Hg (80.0-90.0)
[2021-03-17] MEDS ORDERED: SODIUM BICARBONATE 325 MG TAB FEEDTUBE PRN (11:37)
[2021-03-17] MEDS ORDERED: SIMPLE SYRUP 15 ML FEEDTUBE PRN ×2 (11:37)
[2021-03-17] MEDS ORDERED: LIPASE 10,500/PROTEASE 25,000/AMYLASE 43,750 (UNITS) DR CAP FEEDTUBE PRN (11:37)
--- NOTE | 2021-03-17 12:18 | Progress Note ---
Subjective Principal diagnosis: Ac hypoxemic resp failure; AE-Asthma; SAI; Crohn's; COVID- 19; Pneumonia Interval history: Patient was seen today for follow-up of multiple renal related issues remains intubated critically ill, Renal function worsening, Urine output not satisfactory Interdisciplinary notes were also reviewed Events of 24 hours vitals labs intake output medications were reviewed Past medical history: Reviewed Family history: Reviewed Social history: Reviewed Allergies: Reviewed Physical examination: Vitals: Reviewed HEENT:intubated Neck: Supple no JVD no thyromegaly Chest: Bilateral diminished at lung bases Heart: Regular rate and rhythm S1-S2 heard no S3-S4 Abdomen: Soft nontender no voluntary guarding rigidity rebound Extremity: Dry skin less than 1+ peripheral edema Psychiatric: No evidence of agitation and aggression noted Dermatology: No petechial rashes Labs and x-rays: Reviewed from today Assessment and plan Acute kidney injury most likely resulting from acute tubal necrosis patient was started on dialysis yesterday, Patient remains dialysis dependent and will receive her dialysis treatment today again, she may need to be dialyze anything between 3-5 times per week given the severity of renal function will continue to monitor for any meaningful recovery of renal function. Avoid nephrotoxic medications, Renal ultrasonogram: Shows slightly echogenic kidneys sizes 11.2 and 11.9 cm Will order for hemodialysis treatment today a new prescription is being generated, we will reassess her tomorrow for ongoing need of renal placement therapy #Anemia/ with renal failure, also multifactorial patient will be continuing with erythropoietin weekly #Hyponatremia: To monitor and follow #Acidosis appears to have improved postdialysis and intubation #Lactic acid 2.0 hemoglobin A1c 6.3 Ca 9.0, needs serial monitoring and follow- up #hyperphosphatemia from 3.5 has gone up to 6.0 will monitor and follow binders if needed #Respiratory failure blood gases appear to be improving: Satisfactory today diagnosed with Covid 19 infection, never received vaccine, prognosis guarded #Hyperkalemia: Appears to have stabilized postdialysis We will continue to monitor and follow hemodialysis has been ordered today time spent in critical care setting 35 minutes We'll continue to follow and make recommendation for renal standpoint Objective - Vital Signs Vital signs: Vital Signs - 12hr 03/17/21 03/17/21 03/17/21 00:31 00:45 01:00 Pulse Rate 97 H 101 H 90 Pulse Rate [ Anterior Bilateral Throughout] Pulse Rate [ From Monitor] Respiratory 19 17 20 Rate Respiratory Rate [Anterior Bilateral Throughout] Blood Pressure 132/79 132/79 126/69 O2 Sat by Pulse 95 94 96 Oximetry O2 Sat by Pulse Oximetry [ Anterior Bilateral Throughout] O2 Sat by Pulse Oximetry [ Bilateral] 03/17/21 03/17/21 03/17/21 01:05 01:15 01:31 Pulse Rate 90 91 H 92 H Pulse Rate [ Anterior Bilateral Throughout] Pulse Rate [ From Monitor] Respiratory 13 17 Rate Respiratory Rate [Anterior Bilateral Throughout] Blood Pressure 126/69 126/69 126/69 O2 Sat by Pulse 94 94 96 Oximetry O2 Sat by Pulse Oximetry [ Anterior Bilateral Throughout] O2 Sat by Pulse Oximetry [ Bilateral] 03/17/21 03/17/21 03/17/21 01:45 02:01 02:15 Pulse Rate 87 87 84 Pulse Rate [ Anterior Bilateral Throughout] Pulse Rate [ From Monitor] Respiratory 16 14 11 L Rate Respiratory Rate [Anterior Bilateral Throughout] Blood Pressure 126/69 107/57 107/57 O2 Sat by Pulse 96 97 98 Oximetry O2 Sat by Pulse Oximetry [ Anterior Bilateral Throughout] O2 Sat by Pulse Oximetry [ Bilateral] 03/17/21 03/17/21 03/17/21 02:31 02:45 03:00 Pulse Rate 81 83 83 Pulse Rate [ Anterior Bilateral Throughout] Pulse Rate [ From Monitor] Respiratory 11 L 12 18 Rate Respiratory Rate [Anterior Bilateral Throughout] Blood Pressure 107/57 107/57 120/68 O2 Sat by Pulse 97 96 96 Oximetry O2 Sat by Pulse Oximetry [ Anterior Bilateral Throughout] O2 Sat by Pulse Oximetry [ Bilateral] 03/17/21 03/17/21 03/17/21 03:15 03:31 03:45 Pulse Rate 80 87 79 Pulse Rate [ Anterior Bilateral Throughout] Pulse Rate [ From Monitor] Respiratory 15 20 18 Rate Respiratory Rate [Anterior Bilateral Throughout] Blood Pressure 120/68 120/68 120/68 O2 Sat by Pulse 96 97 94 Oximetry O2 Sat by Pulse Oximetry [ Anterior Bilateral Throughout] O2 Sat by Pulse Oximetry [ Bilateral] 03/17/21 03/17/21 03/17/21 04:00 04:15 04:26 Pulse Rate 82 82 77 Pulse Rate [ Anterior Bilateral Throughout] Pulse Rate [ 72 From Monitor] Respiratory 20 20 Rate Respiratory Rate [Anterior Bilateral Throughout] Blood Pressure 105/56 105/56 105/56 O2 Sat by Pulse 94 94 93 Oximetry O2 Sat by Pulse Oximetry [ Anterior Bilateral Throughout] O2 Sat by Pulse Oximetry [ Bilateral] 03/17/21 03/17/21 03/17/21 04:31 04:45 05:00 Pulse Rate 79 78 82 Pulse Rate [ Anterior Bilateral Throughout] Pulse Rate [ From Monitor] Respiratory 21 18 20 Rate Respiratory Rate [Anterior Bilateral Throughout] Blood Pressure 105/56 105/56 115/62 O2 Sat by Pulse 94 93 95 Oximetry O2 Sat by Pulse Oximetry [ Anterior Bilateral Throughout] O2 Sat by Pulse Oximetry [ Bilateral] 03/17/21 03/17/21 03/17/21 05:15 05:31 05:45 Pulse Rate 94 H 94 H 85 Pulse Rate [ Anterior Bilateral Throughout] Pulse Rate [ From Monitor] Respiratory 12 20 20 Rate Respiratory Rate [Anterior Bilateral Throughout] Blood Pressure 115/62 115/62 115/62 O2 Sat by Pulse 97 96 94 Oximetry O2 Sat by Pulse Oximetry [ Anterior Bilateral Throughout] O2 Sat by Pulse Oximetry [ Bilateral] 03/17/21 03/17/21 03/17/21 06:00 06:15 06:31 Pulse Rate 80 80 80 Pulse Rate [ Anterior Bilateral Throughout] Pulse Rate [ From Monitor] Respiratory 19 20 20 Rate Respiratory Rate [Anterior Bilateral Throughout] Blood Pressure 108/50 108/50 108/50 O2 Sat by Pulse 95 95 95 Oximetry O2 Sat by Pulse Oximetry [ Anterior Bilateral Throughout] O2 Sat by Pulse Oximetry [ Bilateral] 03/17/21 03/17/21 03/17/21 06:45 07:00 07:15 Pulse Rate 81 79 78 Pulse Rate [ Anterior Bilateral Throughout] Pulse Rate [ From Monitor] Respiratory 20 18 19 Rate Respiratory Rate [Anterior Bilateral Throughout] Blood Pressure 108/50 116/55 116/55 O2 Sat by Pulse 95 96 96 Oximetry O2 Sat by Pulse Oximetry [ Anterior Bilateral Throughout] O2 Sat by Pulse Oximetry [ Bilateral] 03/17/21 03/17/21 03/17/21 07:31 07:45 08:00 Pulse Rate 76 75 74 Pulse Rate [ Anterior Bilateral Throughout] Pulse Rate [ 77 From Monitor] Respiratory 20 20 20 Rate Respiratory Rate [Anterior Bilateral Throughout] Blood Pressure 116/55 116/55 108/46 O2 Sat by Pulse 96 97 97 Oximetry O2 Sat by Pulse Oximetry [ Anterior Bilateral Throughout] O2 Sat by Pulse Oximetry [ Bilateral] 03/17/21 03/17/21 03/17/21 08:15 08:31 08:45 Pulse Rate 76 83 85 Pulse Rate [ Anterior Bilateral Throughout] Pulse Rate [ From Monitor] Respiratory 18 20 20 Rate Respiratory Rate [Anterior Bilateral Throughout] Blood Pressure 108/46 108/46 108/46 O2 Sat by Pulse 96 98 97 Oximetry O2 Sat by Pulse Oximetry [ Anterior Bilateral Throughout] O2 Sat by Pulse Oximetry [ Bilateral] 03/17/21 03/17/21 03/17/21 09:00 09:15 09:26 Pulse Rate 78 77 71 Pulse Rate [ Anterior Bilateral Throughout] Pulse Rate [ From Monitor] Respiratory 20 21 Rate Respiratory Rate [Anterior Bilateral Throughout] Blood Pressure 105/57 105/57 105/57 O2 Sat by Pulse 96 96 98 Oximetry O2 Sat by Pulse Oximetry [ Anterior Bilateral Throughout] O2 Sat by Pulse Oximetry [ Bilateral] 03/17/21 03/17/21 03/17/21 09:28 09:31 09:45 Pulse Rate 77 74 Pulse Rate [ 72 Anterior Bilateral Throughout] Pulse Rate [ From Monitor] Respiratory 22 24 Rate Respiratory 24 Rate [Anterior Bilateral Throughout] Blood Pressure 105/57 105/57 O2 Sat by Pulse 97 95 Oximetry O2 Sat by Pulse Oximetry [ Anterior Bilateral Throughout] O2 Sat by Pulse Oximetry [ Bilateral] 03/17/21 03/17/21 03/17/21 09:50 10:00 10:02 Pulse Rate 79 77 72 Pulse Rate [ Anterior Bilateral Throughout] Pulse Rate [ From Monitor] Respiratory 24 24 Rate Respiratory Rate [Anterior Bilateral Throughout] Blood Pressure 101/54 108/56 112/61 O2 Sat by Pulse 95 Oximetry O2 Sat by Pulse 95 Oximetry [ Anterior Bilateral Throughout] O2 Sat by Pulse 95 Oximetry [ Bilateral] 03/17/21 03/17/21 03/17/21 10:15 10:17 10:30 Pulse Rate 70 73 74 Pulse Rate [ Anterior Bilateral Throughout] Pulse Rate [ From Monitor] Respiratory 24 24 Rate Respiratory Rate [Anterior Bilateral Throughout] Blood Pressure 110/61 110/61 107/66 O2 Sat by Pulse 97 96 Oximetry O2 Sat by Pulse Oximetry [ Anterior Bilateral Throughout] O2 Sat by Pulse Oximetry [ Bilateral] 03/17/21 03/17/21 10:45 11:00 Pulse Rate 84 88 Pulse Rate [ Anterior Bilateral Throughout] Pulse Rate [ From Monitor] Respiratory 24 23 Rate Respiratory Rate [Anterior Bilateral Throughout] Blood Pressure 112/79 101/61 O2 Sat by Pulse 96 97 Oximetry O2 Sat by Pulse Oximetry [ Anterior Bilateral Throughout] O2 Sat by Pulse Oximetry [ Bilateral] - Lab 03/18/21 04:30 03/18/21 04:30 Most recent lab results ABG pH 7.294 pH Units (7.350-7.450) L 03/17/21 10:48 ABG pCO2 52.4 mm Hg 03/17/21 10:48 ABG pO2 90.3 mm Hg (80.0-90.0) H 03/17/21 10:48 ABG HCO3 24.9 mmol/L (20.0-26.0) 03/17/21 10:48 ABG O2 Saturation 96.7 % (95.0-99.0) 03/17/21 10:48 Calcium 8.6 mg/dL (8.4-10.2) 03/17/21 05:23 Calcium 8.7 mg/dL (8.4-10.2) 03/17/21 05:23 Phosphorus 9.90 mg/dL (2.5-4.5) H D 03/17/21 05:23 Magnesium 2.40 mg/dL (1.7-2.3) H 03/17/21 05:23 Urine Creatinine 40.1 mg/dL (0.1-20.0) H 03/14/21 17:50 Urine Sodium 124 mmol/L 03/14/21 17:50 Medications & Allergies - Medications Allergies/Adverse Reactions: Allergies acetaminophen [From Percocet] Adverse Reaction (Verified 03/13/21 12:45) Swelling hydrocodone bitartrate [From Vicodin] Adverse Reaction (Verified 03/13/21 12:45) Swelling oxycodone HCl [From Percocet] Adverse Reaction (Verified 03/13/21 12:45) Swelling Home Medications: Home Medications Medication Instructions Recorded Confirmed Last Taken Type Chlorhexidine Mouthwash [Peridex] 15 ml MM BID #1 bottle 10/11/20 03/13/21 Unknown Rx Clindamycin [Clindamycin CAP] 300 mg PO Q8H #21 cap 10/11/20 03/13/21 Unknown Rx Naproxen 500 mg PO Q12H PRN #12 tablet 10/11/20 03/13/21 Unknown Rx Butalb/Acetamin/Caff 50-325-40 1 - 2 tab PO Q6HR PRN #15 tab 12/05/20 03/13/21 Unknown Rx [Fioricet 50-325-40] Famotidine [Pepcid] 20 mg PO BID #30 tablet 12/05/20 03/13/21 Unknown Rx Ketorolac [Toradol] 10 mg PO Q8H PRN #20 tablet 12/05/20 03/13/21 Unknown Rx Ondansetron [Zofran Odt] 4 mg PO Q6HR PRN #20 tab.rapdis 12/05/20 03/13/21 Unknown Rx Albuterol Sulfate [Proair 90 mcg IH Q4HR PRN #2 [email or web address] 01/01/21 03/13/21 Unknown Rx Respiclick] Mupirocin [Bactroban 2% OINT] 1 applic TP BID 7 Days #1 tube 01/01/21 03/13/21 Unknown Rx Triamcinolone Aceton 0.1% (Nf) 1 applic TP BID 14 Days #1 tube 01/01/21 03/13/21 Unknown Rx [Kenalog (NF)] predniSONE [Deltasone] 40 mg PO QDAY #8 tab 01/01/21 03/13/21 Unknown Rx Active Medications: Generic Name Dose Route Start Last Admin Trade Name Freq PRN Reason Stop Dose Admin Acetaminophen 650 mg 03/13/21 19:30 Acetaminophen 325 Mg Tab PO Q4H PRN Pain MILD(1-3)/Fever >100.5/SALAS Albuterol/Ipratropium 1 ampul 03/13/21 20:00 03/17/21 09:28 Ipratropium/Albuterol Sulfate 3 Ml Ampul.Neb IH 1 ampul QIDRT INESSA Administration Lipase/Protease/Amylase 1 each 03/15/21 11:42 Lipase 10,500/Protease 25,000/Amylase 43,750 (Units) Dr White FEEDTUBE PRN PRN For Clogged Feeding Tube Ascorbic Acid 500 mg 03/14/21 22:00 03/17/21 09:09 Ascorbic Acid 500 Mg Tab PO 500 mg BID INESSA Administration Dexamethasone 6 mg 03/16/21 10:00 03/17/21 09:21 Dexamethasone 4 Mg/Ml Vial IV 03/23/21 10:01 6 mg Q24H INESSA Administration Dextrose 50 ml 03/14/21 11:02 03/15/21 11:40 Dextrose 50% In Water (25gm) 50 Ml Syringe IV 50 ml Q30MIN PRN Administration Hypoglycemia Protocol Famotidine 10 mg 03/17/21 22:00 Famotidine 10 Mg Tab PO BID INESSA Fentanyl 50 mcg 03/15/21 10:43 Fentanyl 100 Mcg/2 Ml Inj IV Q10MIN PRN ANALGESIA Heparin Sodium (Porcine) 5,000 unit 03/13/21 22:00 03/17/21 09:08 Heparin 5,000 Unit/1 Ml Vial SUB-Q 5,000 unit Q12HR INESSA Administration Hydralazine HCl 10 mg 03/15/21 10:10 03/15/21 10:32 Hydralazine 20 Mg/1 Ml Inj IV 10 mg Q4HR PRN Administration Hypertension Hydrophilic Ointment 1 applic 03/14/21 17:50 Lip Therapy Vaseline TP Q2HR PRN Dry Lips Propofol 1,000 mg in 100 mls @ 4.123 mls/hr 03/15/21 11:00 03/17/21 08:42 Diprivan 10 Mg/Ml IV 20 mcg/kg/min TITR INESSA 16.493 mls/hr Administration Protocol 5 MCG/KG/MIN Fentanyl Citrate 2,000 mcg in 100 mls @ 6.872 mls/hr 03/15/21 11:00 03/17/21 09:22 Fentanyl Drip Premix IV 4 mcg/kg/hr TITR INESSA 27.488 mls/hr Administration Protocol 1 MCG/KG/HR Sodium Chloride 500 mls @ 1 mls/hr 03/16/21 17:19 Nacl 0.9% 500 Ml IV DIRECT PRN ARTERIAL LINE FLUSH Sodium Chloride 100 mls @ 999 mls/hr 03/17/21 08:28 Nacl 0.9% IV KARLOS PRN Hypotension Insulin Human Lispro 0 unit 03/14/21 12:00 03/17/21 05:32 Insulin Lispro 100 Unit/Ml SUB-Q Not Given Q6HR INESSA Protocol Lorazepam 1 mg 03/13/21 19:40 03/13/21 23:18 Lorazepam 2 Mg/Ml Vial IV 1 mg Q4H PRN Administration Anxiety Metoclopramide HCl 5 mg 03/15/21 10:00 Metoclopramide 10 Mg/2 Ml Inj IV Q6H PRN Nausea And Vomiting Multi-Ingred Cream/Lotion/Oil/Oint 1 applic 03/14/21 17:50 Mineral Oil/Petrolatum, White Ophth Oint 3.5 Gm OU Q4HR PRN Dry Eye(s) Ondansetron HCl 4 mg 03/13/21 19:30 03/13/21 22:29 Ondansetron 4 Mg/2 Ml Inj IV 4 mg Q8H PRN Administration Nausea And Vomiting Senna/Docusate Sodium 1 tab 03/14/21 22:00 03/17/21 09:08 Sennosides/Docusate Sodium 8.6/50 Mg Tab FEEDTUBE 1 tab BID INESSA Administration Simple Syrup 15 ml 03/15/21 11:42 Simple Syrup 15 Ml FEEDTUBE PRN PRN Hypoglycemia Simple Syrup 30 ml 03/15/21 11:42 Simple Syrup 15 Ml FEEDTUBE PRN PRN Hypoglycemia Sodium Bicarbonate 325 mg 03/15/21 11:42 Sodium Bicarbonate 325 Mg Tab FEEDTUBE PRN PRN For Clogged Feeding Tube Sodium Chloride 10 ml 03/13/21 22:00 03/17/21 09:10 Sodium Chloride 0.9% 10 Ml Flush Syringe IV 10 ml BID INESSA Administration Sodium Chloride 10 ml 03/13/21 19:30 Sodium Chloride 0.9% 10 Ml Flush Syringe IV PRN PRN LINE FLUSH Zinc Sulfate 220 mg 03/14/21 22:00 03/17/21 09:08 Zinc Sulfate 220 Mg Cap PO 220 mg BID INESSA Administration
--- NOTE | 2021-03-17 13:09 | Progress Note ---
Assessment and Plan Acute hypoxemic respiratory failure Acute asthma exacerbation Morbid obesity Crohn's disease Metabolic acidosis Acute kidney injury Coronavirus infection Pneumonia (CAP) Oropharyngeal dysphagia Obesity, if not mentioned above - repeat CXR in am - reduce set rate to 20/min (permissive hypercapnia) - FiO2 now down to 60% - repeat ABG @ 9pm and address (hopefully can drop peep some) - continue care as below otherwise; - HD/UF sessions per nephrology prescription - vasopressors for target MAP > 65 mmHg - continue Daily SAT and SBT assessment as tolerated - continue to wean supplemental oxygen for target O2 sat's > 90% acutely - VAP bundle addressed - continue lung protective strategies - continue bronchodilators with pulmonary hygiene per RT - wean per pulmonary driven protocols otherwise - continue accuchecks with glycemic control per SSI (While critically ill target blood glucose of 140-180 mg/dL; avoid hypoglycemia) - sedation prn for target RASS 0 to -1 - avoid nephrotoxins, renally dose all medications - continue to avoid benzodiazepine's, reduce the possibility of delirium - AB's per ID rec's - prn analgesia per CPOT score - Maintenance of sleep-wake cycle, avoid delirium - continue enteral nutritional support at goal rate as tolerated - G.I. & VTE prophylaxis - PT/OT/ROM exercises - continue mobility protocols for pressure ulcer prophylaxis - Monitor hemodynamics closely - continue other care per attending / other consultants - discharge planning ongoing concurrently COVID SPECIFIC INTERVENTIONS - Actemra ordered if available - Remdesivir as per ID/Pulmonary developed protocols (not a candidate) - continue systemic steroids for severe COVID-19 infection empirically - follow repeat COVID tests results - zinc and vitamin C supplementation - Monitor inflammatory markers per facility protocol - ferritin, Ddimer, CRP - therapeutic anticoagulation per system Protocol based on d-dimer and clinical considerations (VTE prophylaxis) - Continue contact and airborne isolation .... Re-evaluate in am & prn CONDITION: CRITICAL PROGNOSIS: GUARDED CODE STATUS: FULL CODE The high probability of a clinically significant, sudden or life-threatening deterioration of the [respiratory, cardiovascular, renal & neurologic] system(s) required my full and direct attention, intervention and personal management. The aggregate critical care time was [34] minutes without overlap. Time includes spent on; [x] Data Review and interpretation [x] Patient assessment and monitoring of vital signs [x] Documentation [x] Medication orders and management Subjective Date of service: 03/17/21 Principal diagnosis: Ac hypoxemic resp failure; AE-Asthma; SAI; Crohn's; COVID- 19; Pneumonia Interval history: Patient is seen today for: Acute hypoxemic respiratory failure; AE-Asthma; SAI; Crohn's disease; COVID-19 infection; Pneumonia (CAP) Seen and examined at bedside; 24hour events reviewed; nursing and respiratory care staff consulted; no adverse overnight events reported to me; resting in bed; tolerated dialysis today; no UF; P-plat still borderline at 33 cm H2O; rate was increased to 24/min earlier pre-dialysis; no emesis or overt aspiration Objective Vital Signs - 12hr 03/17/21 03/17/21 03/17/21 01:15 01:31 01:45 Pulse Rate 91 H 92 H 87 Pulse Rate [ Anterior Bilateral Throughout] Pulse Rate [ From Monitor] Respiratory 13 17 16 Rate Respiratory Rate [Anterior Bilateral Throughout] Blood Pressure 126/69 126/69 126/69 O2 Sat by Pulse 94 96 96 Oximetry O2 Sat by Pulse Oximetry [ Anterior Bilateral Throughout] O2 Sat by Pulse Oximetry [ Bilateral] 03/17/21 03/17/21 03/17/21 02:01 02:15 02:31 Pulse Rate 87 84 81 Pulse Rate [ Anterior Bilateral Throughout] Pulse Rate [ From Monitor] Respiratory 14 11 L 11 L Rate Respiratory Rate [Anterior Bilateral Throughout] Blood Pressure 107/57 107/57 107/57 O2 Sat by Pulse 97 98 97 Oximetry O2 Sat by Pulse Oximetry [ Anterior Bilateral Throughout] O2 Sat by Pulse Oximetry [ Bilateral] 03/17/21 03/17/21 03/17/21 02:45 03:00 03:15 Pulse Rate 83 83 80 Pulse Rate [ Anterior Bilateral Throughout] Pulse Rate [ From Monitor] Respiratory 12 18 15 Rate Respiratory Rate [Anterior Bilateral Throughout] Blood Pressure 107/57 120/68 120/68 O2 Sat by Pulse 96 96 96 Oximetry O2 Sat by Pulse Oximetry [ Anterior Bilateral Throughout] O2 Sat by Pulse Oximetry [ Bilateral] 03/17/21 03/17/21 03/17/21 03:31 03:45 04:00 Pulse Rate 87 79 82 Pulse Rate [ Anterior Bilateral Throughout] Pulse Rate [ 72 From Monitor] Respiratory 20 18 20 Rate Respiratory Rate [Anterior Bilateral Throughout] Blood Pressure 120/68 120/68 105/56 O2 Sat by Pulse 97 94 94 Oximetry O2 Sat by Pulse Oximetry [ Anterior Bilateral Throughout] O2 Sat by Pulse Oximetry [ Bilateral] 03/17/21 03/17/21 03/17/21 04:15 04:26 04:31 Pulse Rate 82 77 79 Pulse Rate [ Anterior Bilateral Throughout] Pulse Rate [ From Monitor] Respiratory 20 21 Rate Respiratory Rate [Anterior Bilateral Throughout] Blood Pressure 105/56 105/56 105/56 O2 Sat by Pulse 94 93 94 Oximetry O2 Sat by Pulse Oximetry [ Anterior Bilateral Throughout] O2 Sat by Pulse Oximetry [ Bilateral] 03/17/21 03/17/21 03/17/21 04:45 05:00 05:15 Pulse Rate 78 82 94 H Pulse Rate [ Anterior Bilateral Throughout] Pulse Rate [ From Monitor] Respiratory 18 20 12 Rate Respiratory Rate [Anterior Bilateral Throughout] Blood Pressure 105/56 115/62 115/62 O2 Sat by Pulse 93 95 97 Oximetry O2 Sat by Pulse Oximetry [ Anterior Bilateral Throughout] O2 Sat by Pulse Oximetry [ Bilateral] 03/17/21 03/17/21 03/17/21 05:31 05:45 06:00 Pulse Rate 94 H 85 80 Pulse Rate [ Anterior Bilateral Throughout] Pulse Rate [ From Monitor] Respiratory 20 20 19 Rate Respiratory Rate [Anterior Bilateral Throughout] Blood Pressure 115/62 115/62 108/50 O2 Sat by Pulse 96 94 95 Oximetry O2 Sat by Pulse Oximetry [ Anterior Bilateral Throughout] O2 Sat by Pulse Oximetry [ Bilateral] 03/17/21 03/17/21 03/17/21 06:15 06:31 06:45 Pulse Rate 80 80 81 Pulse Rate [ Anterior Bilateral Throughout] Pulse Rate [ From Monitor] Respiratory 20 20 20 Rate Respiratory Rate [Anterior Bilateral Throughout] Blood Pressure 108/50 108/50 108/50 O2 Sat by Pulse 95 95 95 Oximetry O2 Sat by Pulse Oximetry [ Anterior Bilateral Throughout] O2 Sat by Pulse Oximetry [ Bilateral] 03/17/21 03/17/21 03/17/21 07:00 07:15 07:31 Pulse Rate 79 78 76 Pulse Rate [ Anterior Bilateral Throughout] Pulse Rate [ From Monitor] Respiratory 18 19 20 Rate Respiratory Rate [Anterior Bilateral Throughout] Blood Pressure 116/55 116/55 116/55 O2 Sat by Pulse 96 96 96 Oximetry O2 Sat by Pulse Oximetry [ Anterior Bilateral Throughout] O2 Sat by Pulse Oximetry [ Bilateral] 03/17/21 03/17/21 03/17/21 07:45 08:00 08:15 Pulse Rate 75 74 76 Pulse Rate [ Anterior Bilateral Throughout] Pulse Rate [ 77 From Monitor] Respiratory 20 20 18 Rate Respiratory Rate [Anterior Bilateral Throughout] Blood Pressure 116/55 108/46 108/46 O2 Sat by Pulse 97 97 96 Oximetry O2 Sat by Pulse Oximetry [ Anterior Bilateral Throughout] O2 Sat by Pulse Oximetry [ Bilateral] 03/17/21 03/17/21 03/17/21 08:31 08:45 09:00 Pulse Rate 83 85 78 Pulse Rate [ Anterior Bilateral Throughout] Pulse Rate [ From Monitor] Respiratory 20 20 20 Rate Respiratory Rate [Anterior Bilateral Throughout] Blood Pressure 108/46 108/46 105/57 O2 Sat by Pulse 98 97 96 Oximetry O2 Sat by Pulse Oximetry [ Anterior Bilateral Throughout] O2 Sat by Pulse Oximetry [ Bilateral] 03/17/21 03/17/21 03/17/21 09:15 09:26 09:28 Pulse Rate 77 71 Pulse Rate [ 72 Anterior Bilateral Throughout] Pulse Rate [ From Monitor] Respiratory 21 Rate Respiratory 24 Rate [Anterior Bilateral Throughout] Blood Pressure 105/57 105/57 O2 Sat by Pulse 96 98 Oximetry O2 Sat by Pulse Oximetry [ Anterior Bilateral Throughout] O2 Sat by Pulse Oximetry [ Bilateral] 03/17/21 03/17/21 03/17/21 09:31 09:45 09:50 Pulse Rate 77 74 79 Pulse Rate [ Anterior Bilateral Throughout] Pulse Rate [ From Monitor] Respiratory 22 24 24 Rate Respiratory Rate [Anterior Bilateral Throughout] Blood Pressure 105/57 105/57 101/54 O2 Sat by Pulse 97 95 Oximetry O2 Sat by Pulse 95 Oximetry [ Anterior Bilateral Throughout] O2 Sat by Pulse 95 Oximetry [ Bilateral] 03/17/21 03/17/21 03/17/21 10:00 10:02 10:15 Pulse Rate 77 72 70 Pulse Rate [ Anterior Bilateral Throughout] Pulse Rate [ From Monitor] Respiratory 24 24 Rate Respiratory Rate [Anterior Bilateral Throughout] Blood Pressure 108/56 112/61 110/61 O2 Sat by Pulse 95 97 Oximetry O2 Sat by Pulse Oximetry [ Anterior Bilateral Throughout] O2 Sat by Pulse Oximetry [ Bilateral] 03/17/21 03/17/21 03/17/21 10:17 10:30 10:45 Pulse Rate 73 74 84 Pulse Rate [ Anterior Bilateral Throughout] Pulse Rate [ From Monitor] Respiratory 24 24 Rate Respiratory Rate [Anterior Bilateral Throughout] Blood Pressure 110/61 107/66 112/79 O2 Sat by Pulse 96 96 Oximetry O2 Sat by Pulse Oximetry [ Anterior Bilateral Throughout] O2 Sat by Pulse Oximetry [ Bilateral] 03/17/21 11:00 Pulse Rate 88 Pulse Rate [ Anterior Bilateral Throughout] Pulse Rate [ From Monitor] Respiratory 23 Rate Respiratory Rate [Anterior Bilateral Throughout] Blood Pressure 101/61 O2 Sat by Pulse 97 Oximetry O2 Sat by Pulse Oximetry [ Anterior Bilateral Throughout] O2 Sat by Pulse Oximetry [ Bilateral] Constitutional: no acute distress, other (morbidly obese female without significant ventilator dyssynchrony) Eyes: non-icteric ENT: oropharynx moist, other (ETT 26 cm BALJINDER) Neck: supple, no lymphadenopathy, no JVD, other (large circumference) Effort: mildly labored Ascultation: Bilateral: diminished breath sounds, rhonchi Percussion: Bilateral: not dull Cardiovascular: regular rate and rhythm Gastrointestinal: normoactive bowel sounds, soft, non-tender, non-distended (protuberant) Integumentary: normal Extremities: no cyanosis, pulses normal, no ischemia or petechiae, edema (trace) Neurologic: non-focal exam (grossly), pupils equal and round, unable to assess, other (moves all extremities spontaneously) Psychiatric: other (unasble to assess) CBC and BMP: 03/17/21 05:23 03/17/21 05:23 ABG, PT/INR, D-dimer: ABG ABG pH 7.294 pH Units (7.350-7.450) L 03/17/21 10:48 POC ABG pCO2 61.5 mmHg (32.0-48.0) H 03/16/21 21:00 ABG pCO2 52.4 mm Hg 03/17/21 10:48 POC ABG pO2 80.8 mmHg (83-108) L 03/16/21 21:00 ABG pO2 90.3 mm Hg (80.0-90.0) H 03/17/21 10:48 POC ABG HCO3 25.7 03/16/21 21:00 ABG O2 Saturation 96.7 % (95.0-99.0) 03/17/21 10:48 PT/INR, D-dimer PT 13.1 Sec. (12.2-14.9) 03/13/21 13:26 INR 0.89 (0.87-1.13) 03/13/21 13:26 D-Dimer 3041.12 ng/mlDDU (0-234) H 03/16/21 06:37 Abnormal lab findings: Abnormal Labs 03/13/21 03/13/21 03/13/21 13:26 13:26 15:40 WBC RBC Hgb Hct MCH 27 L RDW 17.0 H Lymph % (Auto) [place] # (Auto) Seg Neutrophils % Seg Neutrophils # D-Dimer ABG pH POC ABG pCO2 POC ABG pO2 ABG pO2 ABG O2 Saturation ABG Base Excess ABG Hemoglobin ABG Oxyhemoglobin ABG Sodium ABG Potassium ABG Glucose Oxyhemoglobin Carboxyhemoglobin Sodium 136 L Potassium Carbon Dioxide BUN Creatinine Glucose 125 H 130 H POC Glucose Hemoglobin A1c Phosphorus Magnesium Lactate Dehydrogenase 235 H C-Reactive Protein 4.30 H Total Protein Albumin Triglycerides Arterial Blood Glucose Urine Creatinine Coronavirus (PCR) 03/13/21 03/14/21 03/14/21 21:33 03:35 06:21 WBC 20.0 H RBC Hgb Hct MCH 27 L RDW 17.5 H Lymph % (Auto) 7.8 L [place] # (Auto) 1.3 H Seg Neutrophils % 85.4 H Seg Neutrophils # 17.1 H D-Dimer ABG pH 7.323 L 7.234 L POC ABG pCO2 POC ABG pO2 ABG pO2 69.8 L ABG O2 Saturation 92.9 L 94.9 L ABG Base Excess -3.3 L -5.4 L ABG Hemoglobin ABG Oxyhemoglobin ABG Sodium ABG Potassium ABG Glucose Oxyhemoglobin 91.2 L 93.2 L Carboxyhemoglobin Sodium Potassium Carbon Dioxide BUN Creatinine Glucose POC Glucose Hemoglobin A1c Phosphorus Magnesium Lactate Dehydrogenase C-Reactive Protein Total Protein Albumin Triglycerides Arterial Blood Glucose Urine Creatinine Coronavirus (PCR) 03/14/21 03/14/21 03/14/21 06:21 07:47 11:21 WBC RBC Hgb Hct MCH RDW Lymph % (Auto) [place] # (Auto) Seg Neutrophils % Seg Neutrophils # D-Dimer ABG pH POC ABG pCO2 POC ABG pO2 ABG pO2 ABG O2 Saturation ABG Base Excess ABG Hemoglobin ABG Oxyhemoglobin ABG Sodium ABG Potassium ABG Glucose Oxyhemoglobin Carboxyhemoglobin Sodium 136 L 136 L Potassium 6.2 H* D 5.4 H Carbon Dioxide 21 L 21 L BUN Creatinine 1.5 H D 1.8 H Glucose 144 H 141 H POC Glucose 147 H Hemoglobin A1c Phosphorus Magnesium Lactate Dehydrogenase C-Reactive Protein Total Protein 8.7 H 9.2 H Albumin 3.8 L Triglycerides Arterial Blood Glucose Urine Creatinine Coronavirus (PCR) 03/14/21 03/14/21 03/14/21 17:29 17:50 18:35 WBC RBC Hgb Hct MCH RDW Lymph % (Auto) [place] # (Auto) Seg Neutrophils % Seg Neutrophils # D-Dimer ABG pH POC ABG pCO2 POC ABG pO2 ABG pO2 ABG O2 Saturation ABG Base Excess ABG Hemoglobin ABG Oxyhemoglobin ABG Sodium ABG Potassium ABG Glucose Oxyhemoglobin Carboxyhemoglobin Sodium 135 L Potassium 6.4 H* Carbon Dioxide 15 L BUN 26 H Creatinine 3.4 H D Glucose 165 H POC Glucose 209 H Hemoglobin A1c Phosphorus Magnesium Lactate Dehydrogenase C-Reactive Protein Total Protein Albumin Triglycerides Arterial Blood Glucose Urine Creatinine 40.1 H Coronavirus (PCR) 03/14/21 03/14/21 03/14/21 18:46 22:23 23:52 WBC RBC Hgb Hct MCH RDW Lymph % (Auto) [place] # (Auto) Seg Neutrophils % Seg Neutrophils # D-Dimer ABG pH 7.270 L POC ABG pCO2 POC ABG pO2 63.4 L ABG pO2 ABG O2 Saturation ABG Base Excess ABG Hemoglobin ABG Oxyhemoglobin 90.2 L ABG Sodium 134.9 L ABG Potassium 5.3 H ABG Glucose 134 H Oxyhemoglobin Carboxyhemoglobin Sodium 136 L Potassium 5.2 H Carbon Dioxide 20 L BUN 29 H Creatinine 3.6 H Glucose 236 H POC Glucose 128 H Hemoglobin A1c Phosphorus Magnesium Lactate Dehydrogenase C-Reactive Protein Total Protein Albumin 3.2 L Triglycerides Arterial Blood Glucose 134 H Urine Creatinine Coronavirus (PCR) 03/14/21 03/15/21 03/15/21 Unknown 05:00 05:09 WBC 22.5 H RBC Hgb Hct MCH 27 L RDW 17.6 H Lymph % (Auto) [place] # (Auto) Seg Neutrophils % Seg Neutrophils # D-Dimer ABG pH POC ABG pCO2 POC ABG pO2 ABG pO2 ABG O2 Saturation ABG Base Excess ABG Hemoglobin ABG Oxyhemoglobin ABG Sodium ABG Potassium ABG Glucose Oxyhemoglobin Carboxyhemoglobin Sodium Potassium Carbon Dioxide BUN Creatinine Glucose POC Glucose 116 H Hemoglobin A1c Phosphorus Magnesium Lactate Dehydrogenase C-Reactive Protein Total Protein Albumin Triglycerides Arterial Blood Glucose Urine Creatinine Coronavirus (PCR) Positive A 03/15/21 03/15/21 03/15/21 05:09 05:09 05:09 WBC RBC Hgb Hct MCH RDW Lymph % (Auto) [place] # (Auto) Seg Neutrophils % Seg Neutrophils # D-Dimer ABG pH POC ABG pCO2 POC ABG pO2 ABG pO2 ABG O2 Saturation ABG Base Excess ABG Hemoglobin ABG Oxyhemoglobin ABG Sodium ABG Potassium ABG Glucose Oxyhemoglobin Carboxyhemoglobin Sodium 136 L Potassium 6.5 H* D Carbon Dioxide 17 L BUN 41 H Creatinine 5.3 H Glucose 128 H POC Glucose Hemoglobin A1c 6.3 H Phosphorus Magnesium Lactate Dehydrogenase C-Reactive Protein 12.10 H Total Protein Albumin 3.1 L Triglycerides Arterial Blood Glucose Urine Creatinine Coronavirus (PCR) 03/15/21 03/15/21 03/15/21 10:00 21:50 23:39 WBC RBC Hgb Hct MCH RDW Lymph % (Auto) [place] # (Auto) Seg Neutrophils % Seg Neutrophils # D-Dimer ABG pH 7.098 L POC ABG pCO2 72.7 H POC ABG pO2 ABG pO2 162.5 H ABG O2 Saturation ABG Base Excess ABG Hemoglobin 10.1 L ABG Oxyhemoglobin ABG Sodium ABG Potassium 5.7 H ABG Glucose Oxyhemoglobin Carboxyhemoglobin 0.4 L Sodium Potassium Carbon Dioxide BUN Creatinine Glucose POC Glucose 156 H Hemoglobin A1c Phosphorus Magnesium Lactate Dehydrogenase C-Reactive Protein Total Protein Albumin Triglycerides Arterial Blood Glucose Urine Creatinine Coronavirus (PCR) 03/16/21 03/16/21 03/16/21 05:00 05:30 05:30 WBC 16.7 H RBC 3.59 L Hgb 9.6 L Hct 30.1 L MCH 27 L RDW 17.5 H Lymph % (Auto) [place] # (Auto) Seg Neutrophils % Seg Neutrophils # D-Dimer ABG pH POC ABG pCO2 POC ABG pO2 ABG pO2 ABG O2 Saturation ABG Base Excess ABG Hemoglobin ABG Oxyhemoglobin ABG Sodium ABG Potassium ABG Glucose Oxyhemoglobin Carboxyhemoglobin Sodium Potassium Carbon Dioxide BUN 46 H Creatinine 6.2 H Glucose 131 H POC Glucose Hemoglobin A1c Phosphorus 6.00 H D Magnesium Lactate Dehydrogenase 318 H C-Reactive Protein 18.60 H Total Protein Albumin 3.0 L Triglycerides Arterial Blood Glucose Urine Creatinine Coronavirus (PCR) 03/16/21 03/16/21 03/16/21 05:51 06:37 08:58 WBC RBC Hgb Hct MCH RDW Lymph % (Auto) [place] # (Auto) Seg Neutrophils % Seg Neutrophils # D-Dimer 3041.12 H ABG pH POC ABG pCO2 POC ABG pO2 ABG pO2 141.5 H ABG O2 Saturation ABG Base Excess ABG Hemoglobin 9.7 L ABG Oxyhemoglobin ABG Sodium ABG Potassium ABG Glucose Oxyhemoglobin Carboxyhemoglobin Sodium Potassium Carbon Dioxide BUN Creatinine Glucose POC Glucose 126 H Hemoglobin A1c Phosphorus Magnesium Lactate Dehydrogenase C-Reactive Protein Total Protein Albumin Triglycerides Arterial Blood Glucose Urine Creatinine Coronavirus (PCR) 03/16/21 03/16/21 03/16/21 12:11 16:51 21:00 WBC RBC Hgb Hct MCH RDW Lymph % (Auto) [place] # (Auto) Seg Neutrophils % Seg Neutrophils # D-Dimer ABG pH 7.239 L POC ABG pCO2 61.5 H POC ABG pO2 80.8 L ABG pO2 ABG O2 Saturation ABG Base Excess ABG Hemoglobin 11.4 L ABG Oxyhemoglobin 93.5 L ABG Sodium ABG Potassium 5.4 H ABG Glucose 137 H Oxyhemoglobin Carboxyhemoglobin 0.2 L Sodium Potassium Carbon Dioxide BUN Creatinine Glucose POC Glucose 156 H 133 H Hemoglobin A1c Phosphorus Magnesium Lactate Dehydrogenase C-Reactive Protein Total Protein Albumin Triglycerides Arterial Blood Glucose 137 H Urine Creatinine Coronavirus (PCR) 03/16/21 03/17/21 03/17/21 23:42 05:23 05:23 WBC 18.4 H RBC Hgb Hct MCH 27 L RDW 17.4 H Lymph % (Auto) [place] # (Auto) Seg Neutrophils % Seg Neutrophils # D-Dimer ABG pH POC ABG pCO2 POC ABG pO2 ABG pO2 ABG O2 Saturation ABG Base Excess ABG Hemoglobin ABG Oxyhemoglobin ABG Sodium ABG Potassium ABG Glucose Oxyhemoglobin Carboxyhemoglobin Sodium Potassium 5.2 H Carbon Dioxide 21 L BUN 79 H Creatinine 8.6 H Glucose 124 H POC Glucose 133 H Hemoglobin A1c Phosphorus Magnesium Lactate Dehydrogenase C-Reactive Protein Total Protein Albumin 3.2 L Triglycerides 285 H Arterial Blood Glucose Urine Creatinine Coronavirus (PCR) 03/17/21 03/17/21 03/17/21 05:23 10:48 12:20 WBC RBC Hgb Hct MCH RDW Lymph % (Auto) [place] # (Auto) Seg Neutrophils % Seg Neutrophils # D-Dimer ABG pH 7.294 L POC ABG pCO2 POC ABG pO2 ABG pO2 90.3 H ABG O2 Saturation ABG Base Excess ABG Hemoglobin 9.9 L ABG Oxyhemoglobin ABG Sodium ABG Potassium ABG Glucose Oxyhemoglobin Carboxyhemoglobin Sodium Potassium 5.2 H Carbon Dioxide 21 L BUN 79 H Creatinine 8.4 H Glucose 125 H POC Glucose 171 H Hemoglobin A1c Phosphorus 9.90 H D Magnesium 2.40 H Lactate Dehydrogenase C-Reactive Protein Total Protein Albumin Triglycerides Arterial Blood Glucose Urine Creatinine Coronavirus (PCR) Chest x-ray: pending (none today) Allied health notes reviewed: nursing
--- NOTE | 2021-03-17 14:39 | Progress Note ---
Assessment and Plan Cultures: SARS CoV2 PCR: Positive 03/13/2021 blood culture: No growth A/P: 31-year-old female with asthma, morbid obesity, Crohn's disease admitted with cough and shortness of breath: #Bilateral pneumonia: Secondary to COVID-19. Severe disease. CRP has worsened to 12.1. Procalcitonin 0.05. #Acute hypoxic respiratory failure: Requiring BiPAP. #Acute renal failure: Renally adjust antibiotics. Nephrology on board, planning dialysis #Acute asthma exacerbation #Morbid obesity Recs: -IV/PO Dexamethasone x 10 days -Not a candidate for remdesivir due to renal failure -Actemra given 03/15/2021 per pharmacy notes. -prophylactic anticoagulation based on d-dimer per hospital protocol -procalcitonin is low, abx not needed -trend d-dimer, CRP every 2-3 days -poor prognosis Champ Ling MD [facility] O: [phone] F: [phone] Subjective Date of service: 03/17/21 Principal diagnosis: Ac hypoxemic resp failure; AE-Asthma; SAI; Crohn's; COVID- 19; Pneumonia Interval history: Afebrile, white count 18.4. Imaging personally reviewed: Chest x-ray: No acute change. Objective - Exam Narrative Exam: Physical exam deferred to reduce risk of transmission of COVID-19. Please refer to primary team's note. - Constitutional Vitals: Vital Signs Temp Pulse Resp BP Pulse Ox 98.8 F 86 20 131/83 91 03/17/21 13:42 03/17/21 14:00 03/17/21 14:00 03/17/21 14:00 03/17/21 14:00 Temperature -Last 24 Hours Temperature 98.8 F Temperature 98.8 F Temperature 99 F - Labs CBC & Chem 7: 03/17/21 05:23 03/17/21 05:23 Labs: Abnormal lab results 03/16/21 03/16/21 03/16/21 Range/Units 16:51 21:00 23:42 WBC (4.5-11.0) K/mm3 MCH (28-32) pg RDW (13.2-15.2) % ABG pH 7.239 L (7.320-7.450) POC ABG pCO2 61.5 H (32.0-48.0) mmHg POC ABG pO2 80.8 L (83-108) mmHg ABG pO2 (80.0-90.0) mm Hg ABG Hemoglobin 11.4 L (12.0-17.5) ABG Oxyhemoglobin 93.5 L (94-98) ABG Potassium 5.4 H (3.40-4.50) mmol/L ABG Glucose 137 H (65-95) mg/dL Carboxyhemoglobin 0.2 L (0.5-1.5) Potassium (3.6-5.0) mmol/L Carbon Dioxide (22-30) mmol/L BUN (7-17) mg/dL Creatinine (0.6-1.2) mg/dL Glucose (65-100) mg/dL POC Glucose 133 H 133 H (70-105) mg/dL Phosphorus (2.5-4.5) mg/dL Magnesium (1.7-2.3) mg/dL Albumin (3.9-5) g/dL Triglycerides (2-149) mg/dL Arterial Blood Glucose 137 H (65-95) mg/dL 03/17/21 03/17/21 03/17/21 Range/Units 05:23 05:23 05:23 WBC 18.4 H (4.5-11.0) K/mm3 MCH 27 L (28-32) pg RDW 17.4 H (13.2-15.2) % ABG pH (7.320-7.450) POC ABG pCO2 (32.0-48.0) mmHg POC ABG pO2 (83-108) mmHg ABG pO2 (80.0-90.0) mm Hg ABG Hemoglobin (12.0-17.5) ABG Oxyhemoglobin (94-98) ABG Potassium (3.40-4.50) mmol/L ABG Glucose (65-95) mg/dL Carboxyhemoglobin (0.5-1.5) Potassium 5.2 H 5.2 H (3.6-5.0) mmol/L Carbon Dioxide 21 L 21 L (22-30) mmol/L BUN 79 H 79 H (7-17) mg/dL Creatinine 8.6 H 8.4 H (0.6-1.2) mg/dL Glucose 124 H 125 H (65-100) mg/dL POC Glucose (70-105) mg/dL Phosphorus 9.90 H D (2.5-4.5) mg/dL Magnesium 2.40 H (1.7-2.3) mg/dL Albumin 3.2 L (3.9-5) g/dL Triglycerides 285 H (2-149) mg/dL Arterial Blood Glucose (65-95) mg/dL 03/17/21 03/17/21 Range/Units 10:48 12:20 WBC (4.5-11.0) K/mm3 MCH (28-32) pg RDW (13.2-15.2) % ABG pH 7.294 L (7.320-7.450) POC ABG pCO2 (32.0-48.0) mmHg POC ABG pO2 (83-108) mmHg ABG pO2 90.3 H (80.0-90.0) mm Hg ABG Hemoglobin 9.9 L (12.0-17.5) ABG Oxyhemoglobin (94-98) ABG Potassium (3.40-4.50) mmol/L ABG Glucose (65-95) mg/dL Carboxyhemoglobin (0.5-1.5) Potassium (3.6-5.0) mmol/L Carbon Dioxide (22-30) mmol/L BUN (7-17) mg/dL Creatinine (0.6-1.2) mg/dL Glucose (65-100) mg/dL POC Glucose 171 H (70-105) mg/dL Phosphorus (2.5-4.5) mg/dL Magnesium (1.7-2.3) mg/dL Albumin (3.9-5) g/dL Triglycerides (2-149) mg/dL Arterial Blood Glucose (65-95) mg/dL
[2021-03-17] MEDS ORDERED: VANCOMYCIN PHARMACY TO DOSE IV SCH (16:00)
[2021-03-17] MEDS ORDERED: VANCOMYCIN 1,750 MG in SODIUM CHLORIDE 0.9% 500 ML 500 ML IV ONE (16:45)
--- NOTE | 2021-03-17 17:12 | Progress Note ---
Assessment and Plan Assessment and plan: This is a 31-year-old female with asthma, morbid obesity and Crohn's disease admitted for COVID-19 pneumonia and and acute renal failure Neuro: Sedated - Intubated and sedated on propofol and fentanyl - RASS goal 0 to -1 -Daily SAT/SBT when appropriate -Maintain sleep-wake cycle -Avoid delirium -Bilateral wrist restraints in place for safety CV: Tachycardia, hypertension -ST on the monitor -As needed antihypertensive for SBP greater than 160 -Maintain MAP above 65 -Blood pressure monitoring per protocol Respiratory: Acute hypoxic respiratory failure, asthma exacerbation, COVID-19 pneumonia -DuoNeb, steroids -Patient was intubated on 03/14 for respiratory distress and inability to protect airway -Intubated with 7.50 ETT at 24 at the lip -A.m. vent settings: Assist control tidal volume 500, rate 20, PEEP 10, FiO2 60% -See RT notes for titration -[facility] permissive hypercapnia -ABGs per [facility] -03/16 CXR noted -VAP bundle -SPO2 monitoring -CCM/pulmonary consulted, appreciate recommendations -S/p BiPAP therapy GI: h/o MO and Crohn's disease -Nutrition consulted, appreciate recommendations -Tube feeding -changed to Nepro -Free water 100 mL every 4 hours -BR: Senokot -PPI -24 hours +[id number] -Patient received hemodialysis today but they did not move any fluid : Acute kidney injury likely secondary to ATN, hyperphosphatemia -Nephrology consulted, appreciate recommendations -Vas-Cath placed 03/15 -HD initiated 03/15 -Daily weights -Strict intake and output -Avoid nephrotoxic medications -Renally dose medications -Trend BMP -Intervene for electrolytes as needed ID: COVID-19 pneumonia, leukocytosis, Staph aureus in tracheal aspirate -Infectious disease consulted, appreciate recommendations -COVID-19 PCR positive -IV methylprednisone -Ordered Actemra per ID -Per ID patient is on a candidate for remdesivir due to renal failure -Patient received 1 dose of remdesivir on 03/14 -Prophylactic anticoagulation based on D-dimer -Per ID procalcitonin is low and antibiotics not needed at this time -Azithromycin and ceftriaxone discontinued -Trend COVID-19 inflammatory markers -Isolation/droplet precautions -Vitamin C/vitamin D/zinc -03/13 BC x2 no growth to date -03/14 tracheal aspirate with Staph aureus (ID aware) -Monitor WBC and fever curve Heme: Leukocytosis, elevated D-dimer -Trend CBC -Transfuse hemoglobin less than 7 -Prophylactic heparin -SCDs to bilateral lower extremity while in bed Endo: Possible some degree of insulin resistance -Hemoglobin A1c 6.3 -SSI -Accu-Cheks every 6 -Avoid hypoglycemia -Target blood glucose while critically ill 140-180 The high probability of a clinically significant, sudden or life threatening deterioration of the [multiple] system(s) required my full and direct attention, intervention and personal management. The aggregate critical care time was [60] minutes. This time is in addition to time spent performing reported procedures but includes the following: [x] Data Review and interpretation [x] Patient assessment and monitoring of vital signs [x] Documentation [x] Medication orders and management Disposition Plan: Icu Total Time Spent with Patient (Minutes): 60 History Interval history: This is a 31-year-old female with asthma, history of prior intubation x1 in 02/2019, morbid obesity and Crohn's disease who presented to the emergency department on 03/13 with complaints of severe wheezing and shortness of breath over the past 4 days which is not relieved by home nebulizer treatments or rescue inhalers, cough without fever and no loss of sense of taste or smell. Patient is currently on vaccinated for COVID-19. In the emergency department patient was placed on BiPAP given steroids magnesium Solu-Medrol with improvement, CXR shows a streak of possible pneumonia. Patient was made a COVID-19 PUI and admitted to the hospital service. Patient was initially admitted to [facility] on BiPAP and was subsequently intubated due to severe respiratory distress and inability to protect her airway. Patient was admitted with acute hypoxic respiratory failure, acute asthma exacerbation, right upper lobe pneumonia, and as a COVID-19 PUI. Hospital Course to Date: 03/14/21- Patient is s/p intubation from this morning, sedated on propofol and fentanyl RASS -3 to -4. ETT above the clavicles advanced by 2cc. Continue nebs and IV steroids per [facility]. COVID swab pending. Hyperkalemia improved, X1 dose of kayaxalate ordered. Low BP and low urine output this am, fluid bolus challenge, 500cc of NS bolus given. Continue to monitor electrolytes and renal function, repeat BMP this afternoon. 03/15: Patient's renal function noted to be significantly worse today, patient was hyperkalemic and this was medically treated. Patient initiated on hemodialysis today. Patient disease was consulted today. 03/16: No acute events reported overnight, patient received hemodialysis yesterday. Patient is currently on propofol and fentanyl. 03/17: Patient received hemodialysis today, patient is slightly acidotic on ABG however CCM is allowing for permissive hypercapnia, tracheal aspirate with Staph aureus and ID is aware. Hospitalist Physical - Constitutional Vitals: Temp Pulse Resp BP Pulse Ox 98.8 F 76 20 108/64 94 03/17/21 13:42 03/17/21 16:45 03/17/21 16:00 03/17/21 16:45 03/17/21 16:45 General appearance: Present: no acute distress, well-nourished, obese, other (Intubated and sedated) - EENT Eyes: Present: PERRL, EOM intact ENT: hearing intact, dentition normal - Neck Neck: Present: normal ROM - Respiratory Respiratory effort: normal Respiratory: bilateral: diminished - Cardiovascular Rhythm: regular Heart Sounds: Present: S1 & S2. Absent: systolic murmur, diastolic murmur - Extremities Extremities: no ischemia, pulses intact, pulses symmetrical, normal temperature, normal color Extremity abnormal: edema Peripheral Pulses: within normal limits - Abdominal General gastrointestinal: soft, non-tender, non-distended, normal bowel sounds - Integumentary Integumentary: Present: warm, dry - Psychiatric Psychiatric: other (Sedated) - Neurologic Neurologic: other (Intact cough/gag pupils equal reactive) - Allied Health Allied health notes reviewed: nursing, RT, social work Results - Labs CBC & Chem 7: 03/17/21 05:23 03/17/21 05:23 Labs: Laboratory Last Values WBC 18.4 K/mm3 (4.5-11.0) H 03/17/21 05:23 RBC 3.74 M/mm3 (3.65-5.03) 03/17/21 05:23 Hgb 10.2 gm/dl (10.1-14.3) 03/17/21 05:23 Hct 31.5 % (30.3-42.9) 03/17/21 05:23 MCV 84 fl (79-97) 03/17/21 05:23 MCH 27 pg (28-32) L 03/17/21 05:23 MCHC 33 % (30-34) 03/17/21 05:23 RDW 17.4 % (13.2-15.2) H 03/17/21 05:23 Plt Count 167 K/mm3 (140-440) 03/17/21 05:23 Lymph % (Auto) 7.8 % (13.4-35.0) L 03/14/21 06:21 [place] % (Auto) 6.7 % (0.0-7.3) 03/14/21 06:21 Eos % (Auto) 0.0 % (0.0-4.3) 03/14/21 06:21 Baso % (Auto) 0.1 % (0.0-1.8) 03/14/21 06:21 Lymph # (Auto) 1.6 K/mm3 (1.2-5.4) 03/14/21 06:21 [place] # (Auto) 1.3 K/mm3 (0.0-0.8) H 03/14/21 06:21 Eos # (Auto) 0.0 K/mm3 (0.0-0.4) 03/14/21 06:21 Baso # (Auto) 0.0 K/mm3 (0.0-0.1) 03/14/21 06:21 Seg Neutrophils % 85.4 % (40.0-70.0) H 03/14/21 06:21 Seg Neutrophils # 17.1 K/mm3 (1.8-7.7) H 03/14/21 06:21 PT 13.1 Sec. (12.2-14.9) 03/13/21 13:26 INR 0.89 (0.87-1.13) 03/13/21 13:26 D-Dimer 3041.12 ng/mlDDU (0-234) H 03/16/21 06:37 ABG pH 7.294 pH Units (7.350-7.450) L 03/17/21 10:48 POC ABG pCO2 61.5 mmHg (32.0-48.0) H 03/16/21 21:00 ABG pCO2 52.4 mm Hg 03/17/21 10:48 POC ABG pO2 80.8 mmHg (83-108) L 03/16/21 21:00 ABG pO2 90.3 mm Hg (80.0-90.0) H 03/17/21 10:48 POC ABG HCO3 25.7 03/16/21 21:00 ABG HCO3 24.9 mmol/L (20.0-26.0) 03/17/21 10:48 ABG O2 Saturation 96.7 % (95.0-99.0) 03/17/21 10:48 ABG O2 Content 13.3 (0.0-44) 03/17/21 10:48 POC ABG Base Excess -2.5 03/16/21 21:00 ABG Base Excess -1.9 mmol/L (-2.0-3.0) 03/17/21 10:48 ABG Hemoglobin 9.9 gm/dl (12.0-16.0) L 03/17/21 10:48 ABG Oxyhemoglobin 93.5 (94-98) L 03/16/21 21:00 ABG Carboxyhemoglobin 1.2 % (0.0-5.0) 03/17/21 10:48 ABG Methemoglobin 0.5 % (0.0-1.5) 03/17/21 10:48 ABG Sodium 139.6 mmol/L (136.0-145.0) 03/16/21 21:00 ABG Potassium 5.4 mmol/L (3.40-4.50) H 03/16/21 21:00 ABG Chloride 102.0 mmol/L (98-107) 03/16/21 21:00 ABG Glucose 137 mg/dL (65-95) H 03/16/21 21:00 Oxyhemoglobin 95.0 % (95.0-99.0) 03/17/21 10:48 Carboxyhemoglobin 0.2 (0.5-1.5) L 03/16/21 21:00 FiO2 60 % 03/17/21 10:48 FiO2 % 80.0 03/16/21 21:00 Sodium 141 mmol/L (137-145) 03/17/21 05:23 Sodium 142 mmol/L (137-145) 03/17/21 05:23 Potassium 5.2 mmol/L (3.6-5.0) H 03/17/21 05:23 Potassium 5.2 mmol/L (3.6-5.0) H 03/17/21 05:23 Chloride 99.7 mmol/L (98-107) 03/17/21 05:23 Chloride 100.2 mmol/L (98-107) 03/17/21 05:23 Carbon Dioxide 21 mmol/L (22-30) L 03/17/21 05:23 Carbon Dioxide 21 mmol/L (22-30) L 03/17/21 05:23 Anion Gap 26 mmol/L 03/17/21 05:23 Anion Gap 26 mmol/L 03/17/21 05:23 BUN 79 mg/dL (7-17) H 03/17/21 05:23 BUN 79 mg/dL (7-17) H 03/17/21 05:23 Creatinine 8.4 mg/dL (0.6-1.2) H 03/17/21 05:23 Creatinine 8.6 mg/dL (0.6-1.2) H 03/17/21 05:23 Estimated GFR 7 ml/min 03/17/21 05:23 Estimated GFR 7 ml/min 03/17/21 05:23 BUN/Creatinine Ratio 9 % 03/17/21 05:23 BUN/Creatinine Ratio 9 % 03/17/21 05:23 Glucose 124 mg/dL (65-100) H 03/17/21 05:23 Glucose 125 mg/dL (65-100) H 03/17/21 05:23 POC Glucose 171 mg/dL (70-105) H 03/17/21 12:20 Hemoglobin A1c 6.3 % (4-6) H 03/15/21 05:09 Lactic Acid 2.00 mmol/L (0.7-2.0) 03/14/21 18:47 Calcium 8.6 mg/dL (8.4-10.2) 03/17/21 05:23 Calcium 8.7 mg/dL (8.4-10.2) 03/17/21 05:23 Phosphorus 9.90 mg/dL (2.5-4.5) H D 03/17/21 05:23 Magnesium 2.40 mg/dL (1.7-2.3) H 03/17/21 05:23 Ferritin 143.2 ng/mL (10.0-200.0) 03/16/21 06:37 Total Bilirubin 0.20 mg/dL (0.1-1.2) 03/17/21 05:23 AST 35 units/L (5-40) 03/17/21 05:23 ALT 24 units/L (7-56) 03/17/21 05:23 Alkaline Phosphatase 78 units/L (35-129) 03/17/21 05:23 Lactate Dehydrogenase 318 units/L (91-180) H 03/16/21 05:30 C-Reactive Protein 18.60 mg/dL (0.00-1.30) H 03/16/21 05:30 Total Protein 6.7 g/dL (6.3-8.2) 03/17/21 05:23 Albumin 3.2 g/dL (3.9-5) L 03/17/21 05:23 Albumin/Globulin Ratio 0.9 % 03/17/21 05:23 Triglycerides 285 mg/dL (2-149) H 03/17/21 05:23 Procalcitonin < 0.05 ng/mL (<0.15) 03/13/21 15:40 HCG, Qual Negative (Negative) 03/13/21 13:26 Arterial Blood Glucose 137 mg/dL (65-95) H 03/16/21 21:00 Arterial Blood Ionized Calcium 4.6 mg/dL (4.6-5.3) 03/14/21 22:23 Urine Creatinine 40.1 mg/dL (0.1-20.0) H 03/14/21 17:50 Urine Sodium 124 mmol/L 03/14/21 17:50 Coronavirus (PCR) Positive (Negative) A 03/14/21 Unknown Hepatitis A IgM Ab Non-reactive (NonReactive) 03/15/21 05:09 Hep Bs Antigen Nonreactive (Negative) 03/15/21 05:09 Hep B Core IgM Ab Non-reactive (NonReactive) 03/15/21 05:09 Hepatitis C Antibody Non-reactive (NonReactive) 03/15/21 05:09 Microbiology: Microbiology 03/14/21 01:25 Tracheal Aspirate Sputum Culture - Preliminary Staphylococcus Aureus 03/13/21 15:40 Peripheral/Venous Blood Culture - Preliminary NO GROWTH AFTER 72 HOURS 03/13/21 15:40 Peripheral/Venous Blood Culture - Preliminary NO GROWTH AFTER 72 HOURS Bazan/IV: Voiding Method Indwelling Catheter Active Medications - Current Medications Current Medications: Generic Name Dose Route Start Last Admin Trade Name Freq PRN Reason Stop Dose Admin Acetaminophen 650 mg 03/13/21 19:30 Acetaminophen 325 Mg Tab PO Q4H PRN Pain MILD(1-3)/Fever >100.5/SALAS Albuterol/Ipratropium 1 ampul 03/13/21 20:00 03/17/21 16:47 Ipratropium/Albuterol Sulfate 3 Ml Ampul.Neb IH 1 ampul QIDRT INESSA Administration Lipase/Protease/Amylase 1 each 03/15/21 11:42 Lipase 10,500/Protease 25,000/Amylase 43,750 (Units) Dr White FEEDTUBE PRN PRN For Clogged Feeding Tube Ascorbic Acid 500 mg 03/14/21 22:00 03/17/21 09:09 Ascorbic Acid 500 Mg Tab PO 500 mg BID INESSA Administration Dexamethasone 6 mg 03/16/21 10:00 03/17/21 09:21 Dexamethasone 4 Mg/Ml Vial IV 03/23/21 10:01 6 mg Q24H INESSA Administration Dextrose 50 ml 03/14/21 11:02 03/15/21 11:40 Dextrose 50% In Water (25gm) 50 Ml Syringe IV 50 ml Q30MIN PRN Administration Hypoglycemia Protocol Famotidine 10 mg 03/17/21 22:00 Famotidine 10 Mg Tab PO BID INESSA Fentanyl 50 mcg 03/15/21 10:43 Fentanyl 100 Mcg/2 Ml Inj IV Q10MIN PRN ANALGESIA Heparin Sodium (Porcine) 5,000 unit 03/13/21 22:00 03/17/21 09:08 Heparin 5,000 Unit/1 Ml Vial SUB-Q 5,000 unit Q12HR INESSA Administration Hydralazine HCl 10 mg 03/15/21 10:10 03/15/21 10:32 Hydralazine 20 Mg/1 Ml Inj IV 10 mg Q4HR PRN Administration Hypertension Hydrophilic Ointment 1 applic 03/14/21 17:50 Lip Therapy Vaseline TP Q2HR PRN Dry Lips Propofol 1,000 mg in 100 mls @ 4.123 mls/hr 03/15/21 11:00 03/17/21 14:19 Diprivan 10 Mg/Ml IV 15 mcg/kg/min TITR INESSA 12.369 mls/hr Administration Protocol 5 MCG/KG/MIN Fentanyl Citrate 2,000 mcg in 100 mls @ 6.872 mls/hr 03/15/21 11:00 03/17/21 13:01 Fentanyl Drip Premix IV 4 mcg/kg/hr TITR INESSA 27.488 mls/hr Administration Protocol 1 MCG/KG/HR Sodium Chloride 500 mls @ 1 mls/hr 03/16/21 17:19 Nacl 0.9% 500 Ml IV DIRECT PRN ARTERIAL LINE FLUSH Sodium Chloride 100 mls @ 999 mls/hr 03/17/21 08:28 Nacl 0.9% IV KARLOS PRN Hypotension Vancomycin HCl 1,750 mg/ 535 mls @ 333.333 mls/hr 03/17/21 16:45 Sodium Chloride IV 03/17/21 18:21 ONCE ONE Insulin Human Lispro 0 unit 03/14/21 12:00 03/17/21 14:22 Insulin Lispro 100 Unit/Ml SUB-Q 2 unit Q6HR INESSA Administration Protocol Lorazepam 1 mg 03/13/21 19:40 03/13/21 23:18 Lorazepam 2 Mg/Ml Vial IV 1 mg Q4H PRN Administration Anxiety Metoclopramide HCl 5 mg 03/15/21 10:00 Metoclopramide 10 Mg/2 Ml Inj IV Q6H PRN Nausea And Vomiting Multi-Ingred Cream/Lotion/Oil/Oint 1 applic 03/14/21 17:50 Mineral Oil/Petrolatum, White Ophth Oint 3.5 Gm OU Q4HR PRN Dry Eye(s) Ondansetron HCl 4 mg 03/13/21 19:30 03/13/21 22:29 Ondansetron 4 Mg/2 Ml Inj IV 4 mg Q8H PRN Administration Nausea And Vomiting Senna/Docusate Sodium 1 tab 03/14/21 22:00 03/17/21 09:08 Sennosides/Docusate Sodium 8.6/50 Mg Tab FEEDTUBE 1 tab BID INESSA Administration Simple Syrup 15 ml 03/15/21 11:42 Simple Syrup 15 Ml FEEDTUBE PRN PRN Hypoglycemia Simple Syrup 30 ml 03/15/21 11:42 Simple Syrup 15 Ml FEEDTUBE PRN PRN Hypoglycemia Sodium Bicarbonate 325 mg 03/15/21 11:42 Sodium Bicarbonate 325 Mg Tab FEEDTUBE PRN PRN For Clogged Feeding Tube Sodium Chloride 10 ml 03/13/21 22:00 03/17/21 09:10 Sodium Chloride 0.9% 10 Ml Flush Syringe IV 10 ml BID INESSA Administration Sodium Chloride 10 ml 03/13/21 19:30 Sodium Chloride 0.9% 10 Ml Flush Syringe IV PRN PRN LINE FLUSH Zinc Sulfate 220 mg 03/14/21 22:00 03/17/21 09:08 Zinc Sulfate 220 Mg Cap PO 220 mg BID INESSA Administration Nutrition/Malnutrition Assess - Dietary Evaluation Nutrition/Malnutrition Findings: Nutrition Notes Start: 03/15/21 11:06 Freq: Status: Active Protocol: Document 03/17/21 11:24 GB (Rec: 03/17/21 11:37 GB [id number]) Nutrition Notes Initial or Follow up Reassessment Current Diagnosis Respiratory Failure Other Pertinent Diagnosis SOB. PMHx: asthma, morbid obesity, crohn's disease Current Diet No diet order: should be NPO - Tube Feeding Labs/Tests 03/17: Na 136, K 5.2, BUN 79, creatinine 8.4, glucose 125, P 9.9, Mg 2.4 A1c 6.3 Pertinent Medications Vit C, D5(PRN), Fentanyl Citrate, Propofol 16.493ml/hr (435kcal), Zn Sulfate Height 5 ft 5 in Weight 137.438 kg [place] Body Weight (kg) 56.81 BMI 50.4 Weight change and time frame No new weights recorded at time of assessment Weight Status Morbidly Obese Subjective/Other Information Change of formula from Vital AF to Nepro r/t dialysis Pt is intubated/sedated BM: no BM recorded at time of assessment Percent of energy/protein needs met: TF at goal will meet 75% or greater of minimal EEN Burn Absent Trauma Absent GI Symptoms Constipation Difficulty In Swallowing Food Allergy No Skin Integrity/Comment No complications reported Current % PO Other Minimum of two criteria No #1 Nutrition Diagnosis Swallowing difficulty Comments: 03/17: intubation/sedation/TF continues Etiology SOB, respiratory failure As Evidenced by Signs and Symptoms intubated/sedated (03/14) Diagnosis Progress(for reassessment Continues documentation) Is patient on ventilator? Yes Is Patient Ambulatory and/or Out of Bed No REE-([facility]-confined to bed) 2515.536 Kcal/Kg value to use for calculation 15 Approximate Energy Requirements Using 2061 kcal/Kg Calculation Used for Recommendations Kcal/kg Additional Notes Protein 0.6g/kg or greater @ 137g or greater Fluids: 1ml/kcal or per MD Nutrition Intervention Change Diet Order: NPO Nutrition Support: Vital AF 1.2 @ 55ml/hr - d/c 03/17 03/17: change to Nepro @ 44ml/ hr Flush: 155ml/4hr Total free H2O/day: TF@goal + flush = 1700ml Kcal 1,900 Protein (gm) 86 Carbohydrates (gm) 170 Fat (gm) 101 Fluid (mL) 767 Fiber (gm) 13 % RDI: 100kcal/104pro Goal #1 TF started and tolerated by f/ u 03/17 met, changing to nepro Goal #2 TF at goal by f/u Follow-Up By: 03/19/21 Additional Comments f/u: TF tolerance, vent status
[2021-03-17] MEDS: FAMOTIDINE 10 MG TAB PO SCH (23:38)
[2021-03-18] MEDS: fentaNYL DRIP Premix 2,000 MCG/100 ML BAG IV SCH ×4 (02:29→17:27)
[2021-03-18 05:28] LABS: Hematocrit 29.3 % (30.3-42.9); Hemoglobin 9.4 gm/dl (10.1-14.3); Mean Corpuscular HGB Conc 32 % (30-34); Mean Corpuscular Volume 84 fl (79-97); Platelet Count 164 K/mm3 (140-440); Red Blood Count 3.49 M/mm3 (3.65-5.03); Red Cell Distribution Width 17.4 % (13.2-15.2)
--- NOTE | 2021-03-18 05:44 | XRay Report ---
CHEST 1 VIEW INDICATION: Pneumonia. COMPARISON: One day prior. FINDINGS: Support devices: Unchanged. Heart: Stable. Lungs/Pleura: Right basilar opacities are stable. No pneumothorax. IMPRESSION: 1. No significant change. Signer Name: Marty Flower MD Signed: 03/18/2021 5:40 AM Workstation Name: [id number]
[2021-03-18 05:48] LABS: C-Reactive Protein 6.9 mg/dL (0.00-1.30); Calcium 8.2 mg/dL (8.4-10.2)
[2021-03-18] MEDS: INSULIN LISPRO 100 UNIT/ML SUB-Q SCH ×4 (06:45→21:29)
[2021-03-18] MEDS: IPRATROPIUM/ALBUTEROL SULFATE 3 ML AMPUL.NEB IH SCH ×4 (08:49→21:12)
--- NOTE | 2021-03-18 09:14 | Progress Note ---
Subjective Principal diagnosis: Ac hypoxemic resp failure; AE-Asthma; SAI; Crohn's; COVID- 19; Pneumonia Interval history: Patient was seen today for follow-up of multiple renal related issues remains intubated critically ill, has had him dialysis yesterday no improvement in renal function, Blood gases okay Interdisciplinary notes were also reviewed Events of 24 hours vitals labs intake output medications were reviewed Past medical history: Reviewed Family history: Reviewed Social history: Reviewed Allergies: Reviewed Physical examination: Vitals: Reviewed HEENT:intubated Neck: Supple no JVD no thyromegaly Chest: Bilateral diminished at lung bases Heart: Regular rate and rhythm S1-S2 heard no S3-S4 Abdomen: Soft nontender no voluntary guarding rigidity rebound Extremity: Dry skin less than 1+ peripheral edema Psychiatric: No evidence of agitation and aggression noted Dermatology: No petechial rashes Labs and x-rays: Reviewed from today Assessment and plan Acute kidney injury most likely resulting from acute tubal necrosis patient has been initiated on renal replacement therapy for severe renal fail ure, patient was started on dialysis yesterday, Patient will require renal replacement therapy on a daily basis given the severity of renal failure and patient being critically ill, will attempt to ultrafiltrate, at least 1-2 L of tolerated dialysis nurse to monitor hemodynamics closely for ultrafiltration goals If needed albumin can be given 25-50 g #Covid 19 infection with multiorgan failure-like picture: Prognosis appears to be guarded to poor #Hyperphosphatemia improving will benefit from daily dialysis #Avoid nephrotoxic medications, Renal ultrasonogram: Shows slightly echogenic kidneys sizes 11.2 and 11.9 cm #Anemia/ with renal failure, also multifactorial patient will be continuing with erythropoietin weekly #Hyponatremia: To monitor and follow #Acidosis appears to have improved postdialysis and intubation #Lactic acid 2.0 hemoglobin A1c 6.3 Ca 9.0, needs serial monitoring and follow- up #hyperphosphatemia from 3.5 has gone up to 6.0 will monitor and follow binders if needed #Respiratory failure blood gases appear to be improving: Satisfactory today diagnosed with Covid 19 infection, never received vaccine, prognosis guarded #Hyperkalemia: Appears to have stabilized postdialysis time spent in critical care setting 35 minutes We'll continue to follow and make recommendation for renal standpoint Objective - Vital Signs Vital signs: Vital Signs - 12hr 03/17/21 03/17/21 03/17/21 21:15 21:30 21:45 Temperature Pulse Rate 90 90 88 Pulse Rate [ Anterior Bilateral Throughout] Respiratory 20 21 22 Rate Respiratory Rate [Anterior Bilateral Throughout] Blood Pressure 125/68 122/74 122/75 O2 Sat by Pulse 91 90 95 Oximetry 03/17/21 03/17/21 03/17/21 22:00 22:15 22:30 Temperature Pulse Rate 99 H 91 H 93 H Pulse Rate [ Anterior Bilateral Throughout] Respiratory 20 19 21 Rate Respiratory Rate [Anterior Bilateral Throughout] Blood Pressure 143/91 134/87 142/95 O2 Sat by Pulse 94 92 92 Oximetry 03/17/21 03/17/21 03/17/21 22:45 23:00 23:15 Temperature Pulse Rate 90 99 H 92 H Pulse Rate [ Anterior Bilateral Throughout] Respiratory 20 18 21 Rate Respiratory Rate [Anterior Bilateral Throughout] Blood Pressure 134/85 142/89 136/87 O2 Sat by Pulse 91 93 92 Oximetry 03/17/21 03/17/21 03/18/21 23:30 23:45 00:00 Temperature Pulse Rate 90 109 H 95 H Pulse Rate [ Anterior Bilateral Throughout] Respiratory 20 21 18 Rate Respiratory Rate [Anterior Bilateral Throughout] Blood Pressure 133/88 151/105 142/98 O2 Sat by Pulse 92 94 93 Oximetry 03/18/21 03/18/21 03/18/21 00:15 00:30 00:45 Temperature Pulse Rate 95 H 95 H 106 H Pulse Rate [ Anterior Bilateral Throughout] Respiratory 20 20 20 Rate Respiratory Rate [Anterior Bilateral Throughout] Blood Pressure 146/101 146/91 134/84 O2 Sat by Pulse 93 93 94 Oximetry 03/18/21 03/18/21 03/18/21 01:00 01:15 01:30 Temperature Pulse Rate 94 H 95 H 94 H Pulse Rate [ Anterior Bilateral Throughout] Respiratory 21 21 21 Rate Respiratory Rate [Anterior Bilateral Throughout] Blood Pressure 131/85 138/87 132/82 O2 Sat by Pulse 92 92 92 Oximetry 03/18/21 03/18/21 03/18/21 01:45 02:00 02:15 Temperature Pulse Rate 96 H 100 H 103 H Pulse Rate [ Anterior Bilateral Throughout] Respiratory 20 19 17 Rate Respiratory Rate [Anterior Bilateral Throughout] Blood Pressure 137/84 128/89 138/100 O2 Sat by Pulse 91 91 91 Oximetry 03/18/21 03/18/21 03/18/21 02:30 02:45 03:00 Temperature Pulse Rate 101 H 97 H 105 H Pulse Rate [ Anterior Bilateral Throughout] Respiratory 19 19 19 Rate Respiratory Rate [Anterior Bilateral Throughout] Blood Pressure 140/98 137/88 153/96 O2 Sat by Pulse 89 92 91 Oximetry 03/18/21 03/18/21 03/18/21 03:15 03:30 03:45 Temperature Pulse Rate 101 H 102 H 107 H Pulse Rate [ Anterior Bilateral Throughout] Respiratory 19 20 23 Rate Respiratory Rate [Anterior Bilateral Throughout] Blood Pressure 132/82 133/84 132/82 O2 Sat by Pulse 94 92 95 Oximetry 03/18/21 03/18/21 03/18/21 04:00 04:15 04:30 Temperature Pulse Rate 103 H 104 H 102 H Pulse Rate [ Anterior Bilateral Throughout] Respiratory 18 16 12 Rate Respiratory Rate [Anterior Bilateral Throughout] Blood Pressure 110/72 111/67 111/75 O2 Sat by Pulse 94 95 93 Oximetry 03/18/21 03/18/21 03/18/21 04:45 05:00 05:15 Temperature Pulse Rate 101 H 101 H 106 H Pulse Rate [ Anterior Bilateral Throughout] Respiratory 15 16 17 Rate Respiratory Rate [Anterior Bilateral Throughout] Blood Pressure 119/77 112/73 134/84 O2 Sat by Pulse 93 94 95 Oximetry 03/18/21 03/18/21 03/18/21 05:17 05:30 05:45 Temperature Pulse Rate 101 H 103 H 107 H Pulse Rate [ Anterior Bilateral Throughout] Respiratory 18 26 H Rate Respiratory Rate [Anterior Bilateral Throughout] Blood Pressure 138/91 138/91 O2 Sat by Pulse 94 94 89 Oximetry 03/18/21 03/18/21 03/18/21 06:00 06:15 06:30 Temperature Pulse Rate 102 H 101 H 107 H Pulse Rate [ Anterior Bilateral Throughout] Respiratory 21 25 H 19 Rate Respiratory Rate [Anterior Bilateral Throughout] Blood Pressure 137/90 137/90 145/94 O2 Sat by Pulse 91 88 91 Oximetry 03/18/21 03/18/21 03/18/21 06:45 07:00 07:15 Temperature Pulse Rate 100 H 96 H 96 H Pulse Rate [ Anterior Bilateral Throughout] Respiratory 18 20 21 Rate Respiratory Rate [Anterior Bilateral Throughout] Blood Pressure 145/94 91/36 96/39 O2 Sat by Pulse 89 89 91 Oximetry 03/18/21 03/18/21 03/18/21 07:24 08:00 08:47 Temperature 98.7 F Pulse Rate 104 H 99 H Pulse Rate [ Anterior Bilateral Throughout] Respiratory Rate Respiratory Rate [Anterior Bilateral Throughout] Blood Pressure 121/76 O2 Sat by Pulse 91 Oximetry 03/18/21 08:49 Temperature Pulse Rate Pulse Rate [ 100 H Anterior Bilateral Throughout] Respiratory Rate Respiratory 20 Rate [Anterior Bilateral Throughout] Blood Pressure O2 Sat by Pulse Oximetry - Lab 03/18/21 04:30 03/18/21 04:30 Most recent lab results ABG pH 7.310 (7.320-7.450) L 03/17/21 21:00 ABG pCO2 52.4 mm Hg 03/17/21 10:48 ABG pO2 90.3 mm Hg (80.0-90.0) H 03/17/21 10:48 ABG HCO3 24.9 mmol/L (20.0-26.0) 03/17/21 10:48 ABG O2 Saturation 89.1 (0-100) 03/17/21 21:00 Calcium 8.2 mg/dL (8.4-10.2) L 03/18/21 04:30 Phosphorus 7.60 mg/dL (2.5-4.5) H D 03/18/21 04:30 Magnesium 2.10 mg/dL (1.7-2.3) 03/18/21 04:30 Urine Creatinine 40.1 mg/dL (0.1-20.0) H 03/14/21 17:50 Urine Sodium 124 mmol/L 03/14/21 17:50 Medications & Allergies - Medications Allergies/Adverse Reactions: Allergies acetaminophen [From Percocet] Adverse Reaction (Verified 03/13/21 12:45) Swelling hydrocodone bitartrate [From Vicodin] Adverse Reaction (Verified 03/13/21 12:45) Swelling oxycodone HCl [From Percocet] Adverse Reaction (Verified 03/13/21 12:45) Swelling Home Medications: Home Medications Medication Instructions Recorded Confirmed Last Taken Type Chlorhexidine Mouthwash [Peridex] 15 ml MM BID #1 bottle 10/11/20 03/13/21 Un known Rx Clindamycin [Clindamycin CAP] 300 mg PO Q8H #21 cap 10/11/20 03/13/21 Unknown Rx Naproxen 500 mg PO Q12H PRN #12 tablet 10/11/20 03/13/21 Unknown Rx Butalb/Acetamin/Caff 50-325-40 1 - 2 tab PO Q6HR PRN #15 tab 12/05/20 03/13/21 Unknown Rx [Fioricet 50-325-40] Famotidine [Pepcid] 20 mg PO BID #30 tablet 12/05/20 03/13/21 Unknown Rx Ketorolac [Toradol] 10 mg PO Q8H PRN #20 tablet 12/05/20 03/13/21 Unknown Rx Ondansetron [Zofran Odt] 4 mg PO Q6HR PRN #20 tab.rapdis 12/05/20 03/13/21 Unknown Rx Albuterol Sulfate [Proair 90 mcg IH Q4HR PRN #2 aer.[email or web address] 01/01/21 03/13/21 Unknown Rx Respiclick] Mupirocin [Bactroban 2% OINT] 1 applic TP BID 7 Days #1 tube 01/01/21 03/13/21 Unknown Rx Triamcinolone Aceton 0.1% (Nf) 1 applic TP BID 14 Days #1 tube 01/01/21 03/13/21 Unknown Rx [Kenalog (NF)] predniSONE [Deltasone] 40 mg PO QDAY #8 tab 01/01/21 03/13/21 Unknown Rx Active Medications: Generic Name Dose Route Start Last Admin Trade Name Freq PRN Reason Stop Dose Admin Acetaminophen 650 mg 03/13/21 19:30 Acetaminophen 325 Mg Tab PO Q4H PRN Pain MILD(1-3)/Fever >100.5/SALAS Albuterol/Ipratropium 1 ampul 03/13/21 20:00 03/18/21 08:49 Ipratropium/Albuterol Sulfate 3 Ml Ampul.Neb IH 1 ampul QIDRT INESSA Administration Lipase/Protease/Amylase 1 each 03/15/21 11:42 Lipase 10,500/Protease 25,000/Amylase 43,750 (Units) Dr White FEEDTUBE PRN PRN For Clogged Feeding Tube Ascorbic Acid 500 mg 03/14/21 22:00 03/17/21 23:38 Ascorbic Acid 500 Mg Tab PO 500 mg BID INESSA Administration Dexamethasone 6 mg 03/16/21 10:00 03/17/21 09:21 Dexamethasone 4 Mg/Ml Vial IV 03/23/21 10:01 6 mg Q24H INESSA Administration Dextrose 50 ml 03/14/21 11:02 03/15/21 11:40 Dextrose 50% In Water (25gm) 50 Ml Syringe IV 50 ml Q30MIN PRN Administration Hypoglycemia Protocol Famotidine 10 mg 03/17/21 22:00 03/17/21 23:38 Famotidine 10 Mg Tab PO 10 mg BID INESSA Administration Fentanyl 50 mcg 03/15/21 10:43 Fentanyl 100 Mcg/2 Ml Inj IV Q10MIN PRN ANALGESIA Heparin Sodium (Porcine) 7,500 unit 03/18/21 07:44 Heparin 5,000 Unit/1 Ml Vial SUB-Q Q12HR [facility] Hydralazine HCl 10 mg 03/15/21 10:10 03/15/21 10:32 Hydralazine 20 Mg/1 Ml Inj IV 10 mg Q4HR PRN Administration Hypertension Hydrophilic Ointment 1 applic 03/14/21 17:50 Lip Therapy Vaseline TP Q2HR PRN Dry Lips Propofol 1,000 mg in 100 mls @ 4.123 mls/hr 03/15/21 11:00 03/18/21 06:50 Diprivan 10 Mg/Ml IV 15 mcg/kg/min TITR INESSA 12.369 mls/hr Administration Protocol 5 MCG/KG/MIN Fentanyl Citrate 2,000 mcg in 100 mls @ 6.872 mls/hr 03/15/21 11:00 03/18/21 07:27 Fentanyl Drip Premix IV 3 mcg/kg/hr TITR INESSA 20.616 mls/hr Administration Protocol 1 MCG/KG/HR Sodium Chloride 500 mls @ 1 mls/hr 03/16/21 17:19 Nacl 0.9% 500 Ml IV DIRECT PRN ARTERIAL LINE FLUSH Sodium Chloride 100 mls @ 999 mls/hr 03/17/21 08:28 Nacl 0.9% IV KARLOS PRN Hypotension Insulin Human Lispro 0 unit 03/14/21 12:00 03/18/21 06:45 Insulin Lispro 100 Unit/Ml SUB-Q Not Given Q6HR [facility] Protocol Lorazepam 1 mg 03/13/21 19:40 03/13/21 23:18 Lorazepam 2 Mg/Ml Vial IV 1 mg Q4H PRN Administration Anxiety Metoclopramide HCl 5 mg 03/15/21 10:00 03/18/21 09:13 Metoclopramide 10 Mg/2 Ml Inj IV 5 mg Q6H PRN Administration Nausea And Vomiting Multi-Ingred Cream/Lotion/Oil/Oint 1 applic 03/14/21 17:50 Mineral Oil/Petrolatum, White Ophth Oint 3.5 Gm OU Q4HR PRN Dry Eye(s) Ondansetron HCl 4 mg 03/13/21 19:30 03/13/21 22:29 Ondansetron 4 Mg/2 Ml Inj IV 4 mg Q8H PRN Administration Nausea And Vomiting Senna/Docusate Sodium 1 tab 03/14/21 22:00 03/17/21 23:40 Sennosides/Docusate Sodium 8.6/50 Mg Tab FEEDTUBE 1 tab BID INESSA Administration Simple Syrup 15 ml 03/15/21 11:42 Simple Syrup 15 Ml FEEDTUBE PRN PRN Hypoglycemia Simple Syrup 30 ml 03/15/21 11:42 Simple Syrup 15 Ml FEEDTUBE PRN PRN Hypoglycemia Sodium Bicarbonate 325 mg 03/15/21 11:42 Sodium Bicarbonate 325 Mg Tab FEEDTUBE PRN PRN For Clogged Feeding Tube Sodium Chloride 10 ml 03/13/21 22:00 03/17/21 23:40 Sodium Chloride 0.9% 10 Ml Flush Syringe IV 10 ml BID INESSA Administration Sodium Chloride 10 ml 03/13/21 19:30 Sodium Chloride 0.9% 10 Ml Flush Syringe IV PRN PRN LINE FLUSH Zinc Sulfate 220 mg 03/14/21 22:00 03/17/21 23:38 Zinc Sulfate 220 Mg Cap PO 220 mg BID INESSA Administration
[2021-03-18] MEDS ORDERED: SODIUM CHLORIDE 0.9% 100 ML IV PRN (10:00)
[2021-03-18] MEDS: SENNOSIDES/DOCUSATE SODIUM 8.6/50 MG TAB FEEDTUBE SCH ×2 (10:03→21:27)
[2021-03-18] MEDS: ZINC SULFATE 220 MG CAP PO SCH ×2 (10:03→21:27)
[2021-03-18] MEDS: FAMOTIDINE 10 MG TAB PO SCH ×2 (10:03→21:26)
[2021-03-18] MEDS: ASCORBIC ACID 500 MG TAB PO SCH ×2 (10:04→21:27)
[2021-03-18] MEDS: dexAMETHasone 4 MG/ML VIAL IV SCH (10:06)
[2021-03-18] MEDS: HEPARIN 5,000 UNIT/1 ML VIAL SUB-Q SCH ×2 (10:14→21:26)
[2021-03-18] MEDS ORDERED: SODIUM CHLORIDE 0.9% 1000 ML 1,000 ML ONE (12:40)
--- NOTE | 2021-03-18 13:09 | Progress Note ---
Assessment and Plan Acute hypoxemic respiratory failure Acute asthma exacerbation Morbid obesity Crohn's disease Metabolic acidosis Acute kidney injury Coronavirus infection Pneumonia (CAP) Oropharyngeal dysphagia Obesity, if not mentioned above - begin Reglan 5mg IV q6h - resume tube feeds at 10 ml's/hr and advance by 10 q8h till back at rate - diuscussed increased UF with sales operations and plan is for daily dialysis for now - keep set rate at 20/min - repeat ABG @ 9pm and address - continue care as below otherwise; - HD/UF sessions per nephrology prescription - vasopressors for target MAP > 65 mmHg - continue Daily SAT and SBT assessment as tolerated - continue to wean supplemental oxygen for target O2 sat's > 90% acutely - VAP bundle addressed - continue lung protective strategies - continue bronchodilators with pulmonary hygiene per RT - wean per pulmonary driven protocols otherwise - continue accuchecks with glycemic control per SSI (While critically ill target blood glucose of 140-180 mg/dL; avoid hypoglycemia) - sedation prn for target RASS 0 to -1 - avoid nephrotoxins, renally dose all medications - continue to avoid benzodiazepine's, reduce the possibility of delirium - AB's per ID rec's - prn analgesia per CPOT score - Maintenance of sleep-wake cycle, avoid delirium - continue enteral nutritional support at goal rate as tolerated - G.I. & VTE prophylaxis - PT/OT/ROM exercises - continue mobility protocols for pressure ulcer prophylaxis - Monitor hemodynamics closely - continue other care per attending / other consultants - discharge planning ongoing concurrently COVID SPECIFIC INTERVENTIONS - Actemra ordered if available - Remdesivir as per ID/Pulmonary developed protocols (not a candidate) - continue systemic steroids for severe COVID-19 infection empirically - follow repeat COVID tests results - zinc and vitamin C supplementation - Monitor inflammatory markers per facility protocol - ferritin, Ddimer, CRP - therapeutic anticoagulation per system Protocol based on d-dimer and clinical considerations (VTE prophylaxis) - Continue contact and airborne isolation .... Re-evaluate in am & prn CONDITION: CRITICAL PROGNOSIS: GUARDED CODE STATUS: FULL CODE The high probability of a clinically significant, sudden or life-threatening deterioration of the [respiratory, cardiovascular, renal & neurologic] system(s) required my full and direct attention, intervention and personal management. The aggregate critical care time was [33] minutes without overlap. Time includes spent on; [x] Data Review and interpretation [x] Patient assessment and monitoring of vital signs [x] Documentation [x] Medication orders and management Subjective Date of service: 03/18/21 Principal diagnosis: Ac hypoxemic resp failure; AE-Asthma; SAI; Crohn's; COVID- 19; Pneumonia Interval history: Patient is seen today for: Acute hypoxemic respiratory failure; AE-Asthma; SAI; Crohn's disease; COVID-19 infection; Pneumonia (CAP) Seen and examined at bedside; 24hour events reviewed; nursing and respiratory care staff consulted; no adverse overnight events reported to me; resting in bed; tolerating dialysis well so far and target is to pull 2 liters; secretions pink and frothy now and FiuO2 up to 100%; respomds appropriately during SAT's; + high residuals and episode of emesis earlier Objective Vital Signs - 12hr 03/18/21 03/18/21 03/18/21 01:15 01:30 01:45 Temperature Pulse Rate 95 H 94 H 96 H Pulse Rate [ Anterior Bilateral Throughout] Respiratory 21 21 20 Rate Respiratory Rate [Anterior Bilateral Throughout] Blood Pressure 138/87 132/82 137/84 O2 Sat by Pulse 92 92 91 Oximetry O2 Sat by Pulse Oximetry [ Anterior Bilateral Throughout] O2 Sat by Pulse Oximetry [ Bilateral] 03/18/21 03/18/21 03/18/21 02:00 02:15 02:30 Temperature Pulse Rate 100 H 103 H 101 H Pulse Rate [ Anterior Bilateral Throughout] Respiratory 19 17 19 Rate Respiratory Rate [Anterior Bilateral Throughout] Blood Pressure 128/89 138/100 140/98 O2 Sat by Pulse 91 91 89 Oximetry O2 Sat by Pulse Oximetry [ Anterior Bilateral Throughout] O2 Sat by Pulse Oximetry [ Bilateral] 03/18/21 03/18/21 03/18/21 02:45 03:00 03:15 Temperature Pulse Rate 97 H 105 H 101 H Pulse Rate [ Anterior Bilateral Throughout] Respiratory 19 19 19 Rate Respiratory Rate [Anterior Bilateral Throughout] Blood Pressure 137/88 153/96 132/82 O2 Sat by Pulse 92 91 94 Oximetry O2 Sat by Pulse Oximetry [ Anterior Bilateral Throughout] O2 Sat by Pulse Oximetry [ Bilateral] 03/18/21 03/18/21 03/18/21 03:30 03:45 04:00 Temperature Pulse Rate 102 H 107 H 103 H Pulse Rate [ Anterior Bilateral Throughout] Respiratory 20 23 18 Rate Respiratory Rate [Anterior Bilateral Throughout] Blood Pressure 133/84 132/82 110/72 O2 Sat by Pulse 92 95 94 Oximetry O2 Sat by Pulse Oximetry [ Anterior Bilateral Throughout] O2 Sat by Pulse Oximetry [ Bilateral] 03/18/21 03/18/21 03/18/21 04:15 04:30 04:45 Temperature Pulse Rate 104 H 102 H 101 H Pulse Rate [ Anterior Bilateral Throughout] Respiratory 16 12 15 Rate Respiratory Rate [Anterior Bilateral Throughout] Blood Pressure 111/67 111/75 119/77 O2 Sat by Pulse 95 93 93 Oximetry O2 Sat by Pulse Oximetry [ Anterior Bilateral Throughout] O2 Sat by Pulse Oximetry [ Bilateral] 03/18/21 03/18/21 03/18/21 05:00 05:15 05:17 Temperature Pulse Rate 101 H 106 H 101 H Pulse Rate [ Anterior Bilateral Throughout] Respiratory 16 17 Rate Respiratory Rate [Anterior Bilateral Throughout] Blood Pressure 112/73 134/84 O2 Sat by Pulse 94 95 94 Oximetry O2 Sat by Pulse Oximetry [ Anterior Bilateral Throughout] O2 Sat by Pulse Oximetry [ Bilateral] 03/18/21 03/18/21 03/18/21 05:30 05:45 06:00 Temperature Pulse Rate 103 H 107 H 102 H Pulse Rate [ Anterior Bilateral Throughout] Respiratory 18 26 H 21 Rate Respiratory Rate [Anterior Bilateral Throughout] Blood Pressure 138/91 138/91 137/90 O2 Sat by Pulse 94 89 91 Oximetry O2 Sat by Pulse Oximetry [ Anterior Bilateral Throughout] O2 Sat by Pulse Oximetry [ Bilateral] 03/18/21 03/18/21 03/18/21 06:15 06:30 06:45 Temperature Pulse Rate 101 H 107 H 100 H Pulse Rate [ Anterior Bilateral Throughout] Respiratory 25 H 19 18 Rate Respiratory Rate [Anterior Bilateral Throughout] Blood Pressure 137/90 145/94 145/94 O2 Sat by Pulse 88 91 89 Oximetry O2 Sat by Pulse Oximetry [ Anterior Bilateral Throughout] O2 Sat by Pulse Oximetry [ Bilateral] 03/18/21 03/18/21 03/18/21 07:00 07:15 07:24 Temperature 98.7 F Pulse Rate 96 H 96 H Pulse Rate [ Anterior Bilateral Throughout] Respiratory 20 21 Rate Respiratory Rate [Anterior Bilateral Throughout] Blood Pressure 91/36 96/39 O2 Sat by Pulse 89 91 Oximetry O2 Sat by Pulse Oximetry [ Anterior Bilateral Throughout] O2 Sat by Pulse Oximetry [ Bilateral] 03/18/21 03/18/21 03/18/21 07:30 07:45 08:00 Temperature Pulse Rate 102 H 108 H 100 H Pulse Rate [ Anterior Bilateral Throughout] Respiratory 21 20 22 Rate Respiratory Rate [Anterior Bilateral Throughout] Blood Pressure 118/74 118/74 140/97 O2 Sat by Pulse 93 92 92 Oximetry O2 Sat by Pulse Oximetry [ Anterior Bilateral Throughout] O2 Sat by Pulse Oximetry [ Bilateral] 03/18/21 03/18/21 03/18/21 08:15 08:30 08:45 Temperature Pulse Rate 115 H 106 H 102 H Pulse Rate [ Anterior Bilateral Throughout] Respiratory 24 22 19 Rate Respiratory Rate [Anterior Bilateral Throughout] Blood Pressure 140/97 155/106 121/76 O2 Sat by Pulse 91 92 92 Oximetry O2 Sat by Pulse Oximetry [ Anterior Bilateral Throughout] O2 Sat by Pulse Oximetry [ Bilateral] 03/18/21 03/18/21 03/18/21 08:47 08:49 09:00 Temperature Pulse Rate 99 H 108 H Pulse Rate [ 100 H Anterior Bilateral Throughout] Respiratory 20 Rate Respiratory 20 Rate [Anterior Bilateral Throughout] Blood Pressure 121/76 138/90 O2 Sat by Pulse 91 93 Oximetry O2 Sat by Pulse Oximetry [ Anterior Bilateral Throughout] O2 Sat by Pulse Oximetry [ Bilateral] 03/18/21 03/18/21 03/18/21 09:15 09:30 09:45 Temperature Pulse Rate 110 H 106 H 110 H Pulse Rate [ Anterior Bilateral Throughout] Respiratory 20 20 21 Rate Respiratory Rate [Anterior Bilateral Throughout] Blood Pressure 121/78 115/66 128/77 O2 Sat by Pulse 93 92 92 Oximetry O2 Sat by Pulse Oximetry [ Anterior Bilateral Throughout] O2 Sat by Pulse Oximetry [ Bilateral] 03/18/21 03/18/21 03/18/21 10:01 10:15 10:30 Temperature Pulse Rate 102 H 115 H 115 H Pulse Rate [ Anterior Bilateral Throughout] Respiratory 20 20 17 Rate Respiratory Rate [Anterior Bilateral Throughout] Blood Pressure 96/42 140/85 141/88 O2 Sat by Pulse 90 91 92 Oximetry O2 Sat by Pulse Oximetry [ Anterior Bilateral Throughout] O2 Sat by Pulse Oximetry [ Bilateral] 03/18/21 03/18/21 03/18/21 10:45 11:00 11:15 Temperature Pulse Rate 114 H 105 H 102 H Pulse Rate [ Anterior Bilateral Throughout] Respiratory 21 18 17 Rate Respiratory Rate [Anterior Bilateral Throughout] Blood Pressure 155/101 111/52 94/46 O2 Sat by Pulse 91 89 90 Oximetry O2 Sat by Pulse Oximetry [ Anterior Bilateral Throughout] O2 Sat by Pulse Oximetry [ Bilateral] 03/18/21 03/18/21 03/18/21 11:30 11:56 12:00 Temperature Pulse Rate 101 H 98 H 96 H Pulse Rate [ Anterior Bilateral Throughout] Respiratory 21 Rate Respiratory Rate [Anterior Bilateral Throughout] Blood Pressure 108/60 130/86 135/83 O2 Sat by Pulse 91 Oximetry O2 Sat by Pulse 91 Oximetry [ Anterior Bilateral Throughout] O2 Sat by Pulse 91 Oximetry [ Bilateral] 03/18/21 03/18/21 12:03 12:15 Temperature 98.0 F Pulse Rate 103 H Pulse Rate [ Anterior Bilateral Throughout] Respiratory Rate Respiratory Rate [Anterior Bilateral Throughout] Blood Pressure 142/95 O2 Sat by Pulse Oximetry O2 Sat by Pulse Oximetry [ Anterior Bilateral Throughout] O2 Sat by Pulse Oximetry [ Bilateral] Constitutional: no acute distress, other (morbidly obese female with mild ventilator dyssynchrony) Eyes: non-icteric ENT: oropharynx moist, other (ETT 26 cm BALJINDER) Neck: supple, no lymphadenopathy, no JVD, other (large circumference) Effort: mildly labored Ascultation: Bilateral: diminished breath sounds, rhonchi Percussion: Bilateral: not dull Cardiovascular: regular rate and rhythm Gastrointestinal: normoactive bowel sounds, soft, non-tender, non-distended (protuberant) Integumentary: normal Extremities: no cyanosis, pulses normal, no ischemia or petechiae, edema (trace) Neurologic: non-focal exam (grossly), pupils equal and round, CN II-XII normal, motor strength normal and, other (moves all extremities spontaneously) Psychiatric: other (unasble to assess) CBC and BMP: 03/18/21 04:30 03/18/21 04:30 ABG, PT/INR, D-dimer: ABG ABG pH 7.310 (7.320-7.450) L 03/17/21 21:00 POC ABG pCO2 54.5 mmHg (32.0-48.0) H 03/17/21 21:00 ABG pCO2 52.4 mm Hg 03/17/21 10:48 POC ABG pO2 62.3 mmHg (83-108) L 03/17/21 21:00 ABG pO2 90.3 mm Hg (80.0-90.0) H 03/17/21 10:48 POC ABG HCO3 26.8 03/17/21 21:00 ABG O2 Saturation 89.1 (0-100) 03/17/21 21:00 PT/INR, D-dimer PT 13.1 Sec. (12.2-14.9) 03/13/21 13:26 INR 0.89 (0.87-1.13) 03/13/21 13:26 D-Dimer 9953.09 ng/mlDDU (0-234) H 03/18/21 04:30 Abnormal lab findings: Abnormal Labs 03/13/21 03/13/21 03/13/21 13:26 13:26 15:40 WBC RBC Hgb Hct MCH 27 L RDW 17.0 H Lymph % (Auto) [place] # (Auto) Seg Neutrophils % Seg Neutrophils # D-Dimer ABG pH POC ABG pCO2 POC ABG pO2 ABG pO2 ABG O2 Saturation ABG Base Excess ABG Hemoglobin ABG Oxyhemoglobin ABG Sodium ABG Potassium ABG Glucose Oxyhemoglobin Carboxyhemoglobin Sodium 136 L Potassium Carbon Dioxide BUN Creatinine Glucose 125 H 130 H POC Glucose Hemoglobin A1c Calcium Phosphorus Magnesium Lactate Dehydrogenase 235 H C-Reactive Protein 4.30 H Total Protein Albumin Triglycerides Arterial Blood Glucose Arterial Blood Ionized Calcium Urine Creatinine Coronavirus (PCR) 03/13/21 03/14/21 03/14/21 21:33 03:35 06:21 WBC 20.0 H RBC Hgb Hct MCH 27 L RDW 17.5 H Lymph % (Auto) 7.8 L [place] # (Auto) 1.3 H Seg Neutrophils % 85.4 H Seg Neutrophils # 17.1 H D-Dimer ABG pH 7.323 L 7.234 L POC ABG pCO2 POC ABG pO2 ABG pO2 69.8 L ABG O2 Saturation 92.9 L 94.9 L ABG Base Excess -3.3 L -5.4 L ABG Hemoglobin ABG Oxyhemoglobin ABG Sodium ABG Potassium ABG Glucose Oxyhemoglobin 91.2 L 93.2 L Carboxyhemoglobin Sodium Potassium Carbon Dioxide BUN Creatinine Glucose POC Glucose Hemoglobin A1c Calcium Phosphorus Magnesium Lactate Dehydrogenase C-Reactive Protein Total Protein Albumin Triglycerides Arterial Blood Glucose Arterial Blood Ionized Calcium Urine Creatinine Coronavirus (PCR) 03/14/21 03/14/21 03/14/21 06:21 07:47 11:21 WBC RBC Hgb Hct MCH RDW Lymph % (Auto) [place] # (Auto) Seg Neutrophils % Seg Neutrophils # D-Dimer ABG pH POC ABG pCO2 POC ABG pO2 ABG pO2 ABG O2 Saturation ABG Base Excess ABG Hemoglobin ABG Oxyhemoglobin ABG Sodium ABG Potassium ABG Glucose Oxyhemoglobin Carboxyhemoglobin Sodium 136 L 136 L Potassium 6.2 H* D 5.4 H Carbon Dioxide 21 L 21 L BUN Creatinine 1.5 H D 1.8 H Glucose 144 H 141 H POC Glucose 147 H Hemoglobin A1c Calcium Phosphorus Magnesium Lactate Dehydrogenase C-Reactive Protein Total Protein 8.7 H 9.2 H Albumin 3.8 L Triglycerides Arterial Blood Glucose Arterial Blood Ionized Calcium Urine Creatinine Coronavirus (PCR) 03/14/21 03/14/21 03/14/21 17:29 17:50 18:35 WBC RBC Hgb Hct MCH RDW Lymph % (Auto) [place] # (Auto) Seg Neutrophils % Seg Neutrophils # D-Dimer ABG pH POC ABG pCO2 POC ABG pO2 ABG pO2 ABG O2 Saturation ABG Base Excess ABG Hemoglobin ABG Oxyhemoglobin ABG Sodium ABG Potassium ABG Glucose Oxyhemoglobin Carboxyhemoglobin Sodium 135 L Potassium 6.4 H* Carbon Dioxide 15 L BUN 26 H Creatinine 3.4 H D Glucose 165 H POC Glucose 209 H Hemoglobin A1c Calcium Phosphorus Magnesium Lactate Dehydrogenase C-Reactive Protein Total Protein Albumin Triglycerides Arterial Blood Glucose Arterial Blood Ionized Calcium Urine Creatinine 40.1 H Coronavirus (PCR) 03/14/21 03/14/21 03/14/21 18:46 22:23 23:52 WBC RBC Hgb Hct MCH RDW Lymph % (Auto) [place] # (Auto) Seg Neutrophils % Seg Neutrophils # D-Dimer ABG pH 7.270 L POC ABG pCO2 POC ABG pO2 63.4 L ABG pO2 ABG O2 Saturation ABG Base Excess ABG Hemoglobin ABG Oxyhemoglobin 90.2 L ABG Sodium 134.9 L ABG Potassium 5.3 H ABG Glucose 134 H Oxyhemoglobin Carboxyhemoglobin Sodium 136 L Potassium 5.2 H Carbon Dioxide 20 L BUN 29 H Creatinine 3.6 H Glucose 236 H POC Glucose 128 H Hemoglobin A1c Calcium Phosphorus Magnesium Lactate Dehydrogenase C-Reactive Protein Total Protein Albumin 3.2 L Triglycerides Arterial Blood Glucose 134 H Arterial Blood Ionized Calcium Urine Creatinine Coronavirus (PCR) 03/14/21 03/15/21 03/15/21 Unknown 05:00 05:09 WBC 22.5 H RBC Hgb Hct MCH 27 L RDW 17.6 H Lymph % (Auto) [place] # (Auto) Seg Neutrophils % Seg Neutrophils # D-Dimer ABG pH POC ABG pCO2 POC ABG pO2 ABG pO2 ABG O2 Saturation ABG Base Excess ABG Hemoglobin ABG Oxyhemoglobin ABG Sodium ABG Potassium ABG Glucose Oxyhemoglobin Carboxyhemoglobin Sodium Potassium Carbon Dioxide BUN Creatinine Glucose POC Glucose 116 H Hemoglobin A1c Calcium Phosphorus Magnesium Lactate Dehydrogenase C-Reactive Protein Total Protein Albumin Triglycerides Arterial Blood Glucose Arterial Blood Ionized Calcium Urine Creatinine Coronavirus (PCR) Positive A 03/15/21 03/15/21 03/15/21 05:09 05:09 05:09 WBC RBC Hgb Hct MCH RDW Lymph % (Auto) [place] # (Auto) Seg Neutrophils % Seg Neutrophils # D-Dimer ABG pH POC ABG pCO2 POC ABG pO2 ABG pO2 ABG O2 Saturation ABG Base Excess ABG Hemoglobin ABG Oxyhemoglobin ABG Sodium ABG Potassium ABG Glucose Oxyhemoglobin Carboxyhemoglobin Sodium 136 L Potassium 6.5 H* D Carbon Dioxide 17 L BUN 41 H Creatinine 5.3 H Glucose 128 H POC Glucose Hemoglobin A1c 6.3 H Calcium Phosphorus Magnesium Lactate Dehydrogenase C-Reactive Protein 12.10 H Total Protein Albumin 3.1 L Triglycerides Arterial Blood Glucose Arterial Blood Ionized Calcium Urine Creatinine Coronavirus (PCR) 03/15/21 03/15/21 03/15/21 10:00 21:50 23:39 WBC RBC Hgb Hct MCH RDW Lymph % (Auto) [place] # (Auto) Seg Neutrophils % Seg Neutrophils # D-Dimer ABG pH 7.098 L POC ABG pCO2 72.7 H POC ABG pO2 ABG pO2 162.5 H ABG O2 Saturation ABG Base Excess ABG Hemoglobin 10.1 L ABG Oxyhemoglobin ABG Sodium ABG Potassium 5.7 H ABG Glucose Oxyhemoglobin Carboxyhemoglobin 0.4 L Sodium Potassium Carbon Dioxide BUN Creatinine Glucose POC Glucose 156 H Hemoglobin A1c Calcium Phosphorus Magnesium Lactate Dehydrogenase C-Reactive Protein Total Protein Albumin Triglycerides Arterial Blood Glucose Arterial Blood Ionized Calcium Urine Creatinine Coronavirus (PCR) 1103/16/21 03/16/21 05:00 05:30 05:30 WBC 16.7 H RBC 3.59 L Hgb 9.6 L Hct 30.1 L MCH 27 L RDW 17.5 H Lymph % (Auto) [place] # (Auto) Seg Neutrophils % Seg Neutrophils # D-Dimer ABG pH POC ABG pCO2 POC ABG pO2 ABG pO2 ABG O2 Saturation ABG Base Excess ABG Hemoglobin ABG Oxyhemoglobin ABG Sodium ABG Potassium ABG Glucose Oxyhemoglobin Carboxyhemoglobin Sodium Potassium Carbon Dioxide BUN 46 H Creatinine 6.2 H Glucose 131 H POC Glucose Hemoglobin A1c Calcium Phosphorus 6.00 H D Magnesium Lactate Dehydrogenase 318 H C-Reactive Protein 18.60 H Total Protein Albumin 3.0 L Triglycerides Arterial Blood Glucose Arterial Blood Ionized Calcium Urine Creatinine Coronavirus (PCR) 03/16/21 03/16/21 03/16/21 05:51 06:37 08:58 WBC RBC Hgb Hct MCH RDW Lymph % (Auto) [place] # (Auto) Seg Neutrophils % Seg Neutrophils # D-Dimer 3041.12 H ABG pH POC ABG pCO2 POC ABG pO2 ABG pO2 141.5 H ABG O2 Saturation ABG Base Excess ABG Hemoglobin 9.7 L ABG Oxyhemoglobin ABG Sodium ABG Potassium ABG Glucose Oxyhemoglobin Carboxyhemoglobin Sodium Potassium Carbon Dioxide BUN Creatinine Glucose POC Glucose 126 H Hemoglobin A1c Calcium Phosphorus Magnesium Lactate Dehydrogenase C-Reactive Protein Total Protein Albumin Triglycerides Arterial Blood Glucose Arterial Blood Ionized Calcium Urine Creatinine Coronavirus (PCR) 03/16/21 03/16/21 03/16/21 12:11 16:51 21:00 WBC RBC Hgb Hct MCH RDW Lymph % (Auto) [place] # (Auto) Seg Neutrophils % Seg Neutrophils # D-Dimer ABG pH 7.239 L POC ABG pCO2 61.5 H POC ABG pO2 80.8 L ABG pO2 ABG O2 Saturation ABG Base Excess ABG Hemoglobin 11.4 L ABG Oxyhemoglobin 93.5 L ABG Sodium ABG Potassium 5.4 H ABG Glucose 137 H Oxyhemoglobin Carboxyhemoglobin 0.2 L Sodium Potassium Carbon Dioxide BUN Creatinine Glucose POC Glucose 156 H 133 H Hemoglobin A1c Calcium Phosphorus Magnesium Lactate Dehydrogenase C-Reactive Protein Total Protein Albumin Triglycerides Arterial Blood Glucose 137 H Arterial Blood Ionized Calcium Urine Creatinine Coronavirus (PCR) 03/16/21 03/17/2103/17/21 23:42 05:23 05:23 WBC 18.4 H RBC Hgb Hct MCH 27 L RDW 17.4 H Lymph % (Auto) [place] # (Auto) Seg Neutrophils % Seg Neutrophils # D-Dimer ABG pH POC ABG pCO2 POC ABG pO2 ABG pO2 ABG O2 Saturation ABG Base Excess ABG Hemoglobin ABG Oxyhemoglobin ABG Sodium ABG Potassium ABG Glucose Oxyhemoglobin Carboxyhemoglobin Sodium Potassium 5.2 H Carbon Dioxide 21 L BUN 79 H Creatinine 8.6 H Glucose 124 H POC Glucose 133 H Hemoglobin A1c Calcium Phosphorus Magnesium Lactate Dehydrogenase C-Reactive Protein Total Protein Albumin 3.2 L Triglycerides 285 H Arterial Blood Glucose Arterial Blood Ionized Calcium Urine Creatinine Coronavirus (PCR) 03/17/21 03/17/21 03/17/21 05:23 10:48 12:20 WBC RBC Hgb Hct MCH RDW Lymph % (Auto) [place] # (Auto) Seg Neutrophils % Seg Neutrophils # D-Dimer ABG pH 7.294 L POC ABG pCO2 POC ABG pO2 ABG pO2 90.3 H ABG O2 Saturation ABG Base Excess ABG Hemoglobin 9.9 L ABG Oxyhemoglobin ABG Sodium ABG Potassium ABG Glucose Oxyhemoglobin Carboxyhemoglobin Sodium Potassium 5.2 H Carbon Dioxide 21 L BUN 79 H Creatinine 8.4 H Glucose 125 H POC Glucose 171 H Hemoglobin A1c Calcium Phosphorus 9.90 H D Magnesium 2.40 H Lactate Dehydrogenase C-Reactive Protein Total Protein Albumin Triglycerides Arterial Blood Glucose Arterial Blood Ionized Calcium Urine Creatinine Coronavirus (PCR) 03/17/21 03/17/21 03/18/21 17:24 21:00 04:30 WBC RBC Hgb Hct MCH RDW Lymph % (Auto) [place] # (Auto) Seg Neutrophils % Seg Neutrophils # D-Dimer 9953.09 H ABG pH 7.310 L POC ABG pCO2 54.5 H POC ABG pO2 62.3 L ABG pO2 ABG O2 Saturation ABG Base Excess ABG Hemoglobin 10.2 L ABG Oxyhemoglobin 88.6 L ABG Sodium ABG Potassium 4.7 H ABG Glucose 99 H Oxyhemoglobin Carboxyhemoglobin 0.3 L Sodium Potassium Carbon Dioxide BUN Creatinine Glucose POC Glucose 121 H Hemoglobin A1c Calcium Phosphorus Magnesium Lactate Dehydrogenase C-Reactive Protein Total Protein Albumin Triglycerides Arterial Blood Glucose 99 H Arterial Blood Ionized Calcium 4.3 L Urine Creatinine Coronavirus (PCR) 03/18/21 03/18/21 03/18/21 04:30 04:30 11:34 WBC 12.8 H RBC 3.49 L Hgb 9.4 L Hct 29.3 L MCH 27 L RDW 17.4 H Lymph % (Auto) [place] # (Auto) Seg Neutrophils % Seg Neutrophils # D-Dimer ABG pH POC ABG pCO2 POC ABG pO2 ABG pO2 ABG O2 Saturation ABG Base Excess ABG Hemoglobin ABG Oxyhemoglobin ABG Sodium ABG Potassium ABG Glucose Oxyhemoglobin Carboxyhemoglobin Sodium Potassium Carbon Dioxide BUN 69 H Creatinine 7.3 H Glucose POC Glucose 114 H Hemoglobin A1c Calcium 8.2 L Phosphorus 7.60 H D Magnesium Lactate Dehydrogenase 477 H C-Reactive Protein 6.90 H Total Protein Albumin Triglycerides Arterial Blood Glucose Arterial Blood Ionized Calcium Urine Creatinine Coronavirus (PCR) Chest x-ray: image reviewed (no improvement in infiltrates / RLL partial atelectasis) Allied health notes reviewed: nursing
[2021-03-18] MEDS: LORazepam 2 MG/ML VIAL IV PRN (14:11)
--- NOTE | 2021-03-18 14:24 | Progress Note ---
Assessment and Plan Cultures: SARS CoV2 PCR: Positive 03/13/2021 blood culture: No growth Rest cultures: Staph aureus A/P: 31-year-old female with asthma, morbid obesity, Crohn's disease admitted with cough and shortness of breath: #Bilateral pneumonia: Secondary to COVID-19. Severe disease. CRP has worsened to 12.1. Procalcitonin 0.05. #Acute hypoxic respiratory failure: Requiring BiPAP. #Acute renal failure: Renally adjust antibiotics. Nephrology on board, planning dialysis #Acute asthma exacerbation #Morbid obesity Recs: -IV/PO Dexamethasone x 10 days -Not a candidate for remdesivir due to renal failure -Actemra given 03/15/2021 per pharmacy notes. -prophylactic anticoagulation based on d-dimer per hospital protocol -Started vancomycin with staph aureus in the cultures, follow-up JOVAN. -trend d-dimer, CRP every 2-3 days -poor prognosis Champ Ling MD [facility] O: [phone] F: [phone] Subjective Date of service: 03/18/21 Principal diagnosis: Ac hypoxemic resp failure; AE-Asthma; SAI; Crohn's; COVID- 19; Pneumonia Interval history: Afebrile, white count 12.8, which is improving. Sputum culture with staph aureus. Objective - Exam Narrative Exam: Physical exam deferred to reduce risk of transmission of COVID-19. Please refer to primary team's note. - Constitutional Vitals: Vital Signs Temp Pulse Resp BP Pulse Ox 98.0 F 103 H 21 142/95 91 03/18/21 12:03 03/18/21 12:15 03/18/21 11:30 03/18/21 12:15 03/18/21 11:30 Temperature -Last 24 Hours Temperature 98.0 F Temperature 98.7 F - Labs CBC & Chem 7: 03/18/21 04:30 03/18/21 04:30 Labs: Abnormal lab results 03/17/21 03/17/21 03/18/21 Range/Units 17:24 21:00 04:30 WBC (4.5-11.0) K/mm3 RBC (3.65-5.03) M/mm3 Hgb (10.1-14.3) gm/dl Hct (30.3-42.9) % MCH (28-32) pg RDW (13.2-15.2) % D-Dimer 9953.09 H (0-234) ng/mlDDU ABG pH 7.310 L (7.320-7.450) POC ABG pCO2 54.5 H (32.0-48.0) mmHg POC ABG pO2 62.3 L (83-108) mmHg ABG Hemoglobin 10.2 L (12.0-17.5) ABG Oxyhemoglobin 88.6 L (94-98) ABG Potassium 4.7 H (3.40-4.50) mmol/L ABG Glucose 99 H (65-95) mg/dL Carboxyhemoglobin 0.3 L (0.5-1.5) BUN (7-17) mg/dL Creatinine (0.6-1.2) mg/dL POC Glucose 121 H (70-105) mg/dL Calcium (8.4-10.2) mg/dL Phosphorus (2.5-4.5) mg/dL Lactate Dehydrogenase (91-180) units/L C-Reactive Protein (0.00-1.30) mg/dL Arterial Blood Glucose 99 H (65-95) mg/dL Arterial Blood Ionized Calcium 4.3 L (4.6-5.3) mg/dL 03/18/21 03/18/21 03/18/21 Range/Units 04:30 04:30 11:34 WBC 12.8 H (4.5-11.0) K/mm3 RBC 3.49 L (3.65-5.03) M/mm3 Hgb 9.4 L (10.1-14.3) gm/dl Hct 29.3 L (30.3-42.9) % MCH 27 L (28-32) pg RDW 17.4 H (13.2-15.2) % D-Dimer (0-234) ng/mlDDU ABG pH (7.320-7.450) POC ABG pCO2 (32.0-48.0) mmHg POC ABG pO2 (83-108) mmHg ABG Hemoglobin (12.0-17.5) ABG Oxyhemoglobin (94-98) ABG Potassium (3.40-4.50) mmol/L ABG Glucose (65-95) mg/dL Carboxyhemoglobin (0.5-1.5) BUN 69 H (7-17) mg/dL Creatinine 7.3 H (0.6-1.2) mg/dL POC Glucose 114 H (70-105) mg/dL Calcium 8.2 L (8.4-10.2) mg/dL Phosphorus 7.60 H D (2.5-4.5) mg/dL Lactate Dehydrogenase 477 H (91-180) units/L C-Reactive Protein 6.90 H (0.00-1.30) mg/dL Arterial Blood Glucose (65-95) mg/dL Arterial Blood Ionized Calcium (4.6-5.3) mg/dL
[2021-03-18] MEDS: METOCLOPRAMIDE 10 MG/2 ML INJ IV SCH ×2 (16:49→21:27)
--- NOTE | 2021-03-18 16:59 | Progress Note ---
Assessment and Plan Assessment and plan: This is a 31-year-old female with asthma, morbid obesity and Crohn's disease admitted for COVID-19 pneumonia and and acute renal failure Neuro: Sedated - Intubated and sedated on propofol and fentanyl - RASS goal 0 to -1 -Daily SAT/SBT when appropriate -Maintain sleep-wake cycle -Avoid delirium -Bilateral wrist restraints in place for safety CV: Tachycardia, hypertension -ST on the monitor -As needed antihypertensive for SBP greater than 160 -Maintain MAP above 65 -Blood pressure monitoring per protocol Respiratory: Acute hypoxic respiratory failure, asthma exacerbation, COVID-19 pneumonia -DuoNeb, steroids -Patient was intubated on 03/14 for respiratory distress and inability to protect airway -Intubated with 7.50 ETT at 24 at the lip -A.m. vent settings: Assist control TV 500, rate 20, PEEP 10, FiO2 80% -See RT notes for titration -CCM is allowing for permissive hypercapnia -ABGs per [facility] -03/18 CXR noted -VAP bundle -SPO2 monitoring -CCM/pulmonary consulted, appreciate recommendations -S/p BiPAP therapy GI: h/o MO and Crohn's disease -Nutrition consulted, appreciate recommendations -Tube feeding -changed to Nepro -Free water 100 mL every 4 hours -BR: Senokot -PPI -24 hours +[id number] -Reglan for increased TF residuals : Acute kidney injury likely secondary to ATN, hyperphosphatemia -Nephrology consulted, appreciate recommendations -Vas-Cath placed 03/15 -HD initiated 03/15 -Daily weights -Strict intake and output -Avoid nephrotoxic medications -Renally dose medications -Trend BMP -Intervene for electrolytes as needed -Daily HD for now per nephrology ID: COVID-19 pneumonia, leukocytosis, Staph aureus in tracheal aspirate -Infectious disease consulted, appreciate recommendations -COVID-19 PCR positive -IV methylprednisone -Ordered Actemra per ID -Per ID patient is on a candidate for remdesivir due to renal failure -Patient received 1 dose of remdesivir on 03/14 -Prophylactic anticoagulation based on D-dimer -Per ID procalcitonin is low and antibiotics not needed at this time -Azithromycin and ceftriaxone discontinued -Started on vancomycin, PKS to dose -Trend COVID-19 inflammatory markers -Isolation/droplet precautions -Vitamin C/vitamin D/zinc -03/13 BC x2 no growth to date -03/14 tracheal aspirate with Staph aureus (ID aware) -Monitor WBC and fever curve Heme: Leukocytosis, elevated D-dimer -Trend CBC -Transfuse hemoglobin less than 7 -Prophylactic heparin -SCDs to bilateral lower extremity while in bed Endo: Possible some degree of insulin resistance -Hemoglobin A1c 6.3 -SSI -Accu-Cheks every 6 -Avoid hypoglycemia -Target blood glucose while critically ill 140-180 The high probability of a clinically significant, sudden or life threatening deterioration of the [multiple] system(s) required my full and direct attention, intervention and personal management. The aggregate critical care time was [60] minutes. This time is in addition to time spent performing reported procedures but includes the following: [x] Data Review and interpretation [x] Patient assessment and monitoring of vital signs [x] Documentation [x] Medication orders and management Disposition Plan: icu Total Time Spent with Patient (Minutes): 60 History Interval history: This is a 31-year-old female with asthma, history of prior intubation x1 in 02/2019, morbid obesity and Crohn's disease who presented to the emergency department on 03/13 with complaints of severe wheezing and shortness of breath over the past 4 days which is not relieved by home nebulizer treatments or rescue inhalers, cough without fever and no loss of sense of taste or smell. Patient is currently on vaccinated for COVID-19. In the emergency department patient was placed on BiPAP given steroids magnesium Solu-Medrol with improvement, CXR shows a streak of possible pneumonia. Patient was made a COVID-19 PUI and admitted to the hospital service. Patient was initially admitted to [facility] on BiPAP and was subsequently intubated due to severe respiratory distress and inability to protect her airway. Patient was admitted with acute hypoxic respiratory failure, acute asthma exacerbation, right upper lobe pneumonia, and as a COVID-19 PUI. Hospital Course to Date: 03/14/21- Patient is s/p intubation from this morning, sedated on propofol and fentanyl RASS -3 to -4. ETT above the clavicles advanced by 2cc. Continue nebs and IV steroids per CCM. COVID swab pending. Hyperkalemia improved, X1 dose of kayaxalate ordered. Low BP and low urine output this am, fluid bolus challenge, 500cc of NS bolus given. Continue to monitor electrolytes and renal function, repeat BMP this afternoon. 03/15: Patient's renal function noted to be significantly worse today, patient was hyperkalemic and this was medically treated. Patient initiated on hemodialysis today. Patient disease was consulted today. 03/16: No acute events reported overnight, patient received hemodialysis yesterday. Patient is currently on propofol and fentanyl. 03/17: Patient received hemodialysis today, patient is slightly acidotic on ABG however CCM is allowing for permissive hypercapnia, tracheal aspirate with Staph aureus and ID is aware. 03/18: Patient is having high residuals today and Reglan was started, patient w ill receive HD daily per nephrology, correct her change in FiO2 as tolerated. Hospitalist Physical - Constitutional Vitals: Temp Pulse Resp BP Pulse Ox 99.9 F H 105 H 20 110/63 95 03/18/21 16:30 03/18/21 16:30 03/18/21 16:30 03/18/21 16:30 03/18/21 16:30 General appearance: Present: no acute distress, well-nourished, obese, other (Intubated and sedated) - EENT Eyes: Present: PERRL, EOM intact ENT: hearing intact, clear oral mucosa - Neck Neck: Present: supple, normal ROM - Respiratory Respiratory effort: normal Respiratory: bilateral: diminished - Cardiovascular Rhythm: regular Heart Sounds: Present: S1 & S2. Absent: systolic murmur, diastolic murmur - Extremities Extremities: no ischemia, pulses intact, pulses symmetrical, No edema, normal temperature, normal color Peripheral Pulses: within normal limits - Abdominal General gastrointestinal: soft, non-tender, non-distended, normal bowel sounds - Integumentary Integumentary: Present: warm, dry - Psychiatric Psychiatric: cooperative - Neurologic Neurologic: moves all extremities - Allied Health Allied health notes reviewed: nursing, RT, social work Results - Labs CBC & Chem 7: 03/18/21 04:30 03/18/21 04:30 Labs: Laboratory Last Values WBC 12.8 K/mm3 (4.5-11.0) H 03/18/21 04:30 RBC 3.49 M/mm3 (3.65-5.03) L 03/18/21 04:30 Hgb 9.4 gm/dl (10.1-14.3) L 03/18/21 04:30 Hct 29.3 % (30.3-42.9) L 03/18/21 04:30 MCV 84 fl (79-97) 03/18/21 04:30 MCH 27 pg (28-32) L 03/18/21 04:30 MCHC 32 % (30-34) 03/18/21 04:30 RDW 17.4 % (13.2-15.2) H 03/18/21 04:30 Plt Count 164 K/mm3 (140-440) 03/18/21 04:30 Lymph % (Auto) 7.8 % (13.4-35.0) L 03/14/21 06:21 [place] % (Auto) 6.7 % (0.0-7.3) 03/14/21 06:21 Eos % (Auto) 0.0 % (0.0-4.3) 03/14/21 06:21 Baso % (Auto) 0.1 % (0.0-1.8) 03/14/21 06:21 Lymph # (Auto) 1.6 K/mm3 (1.2-5.4) 03/14/21 06:21 [place] # (Auto) 1.3 K/mm3 (0.0-0.8) H 03/14/21 06:21 Eos # (Auto) 0.0 K/mm3 (0.0-0.4) 03/14/21 06:21 Baso # (Auto) 0.0 K/mm3 (0.0-0.1) 03/14/21 06:21 Seg Neutrophils % 85.4 % (40.0-70.0) H 03/14/21 06:21 Seg Neutrophils # 17.1 K/mm3 (1.8-7.7) H 03/14/21 06:21 PT 13.1 Sec. (12.2-14.9) 03/13/21 13:26 INR 0.89 (0.87-1.13) 03/13/21 13:26 D-Dimer 9953.09 ng/mlDDU (0-234) H 03/18/21 04:30 ABG pH 7.310 (7.320-7.450) L 03/17/21 21:00 POC ABG pCO2 54.5 mmHg (32.0-48.0) H 03/17/21 21:00 ABG pCO2 52.4 mm Hg 03/17/21 10:48 POC ABG pO2 62.3 mmHg (83-108) L 03/17/21 21:00 ABG pO2 90.3 mm Hg (80.0-90.0) H 03/17/21 10:48 POC ABG HCO3 26.8 03/17/21 21:00 ABG HCO3 24.9 mmol/L (20.0-26.0) 03/17/21 10:48 ABG O2 Saturation 89.1 (0-100) 03/17/21 21:00 ABG O2 Content 13.3 (0.0-44) 03/17/21 10:48 POC ABG Base Excess 0 03/17/21 21:00 ABG Base Excess -1.9 mmol/L (-2.0-3.0) 03/17/21 10:48 ABG Hemoglobin 10.2 (12.0-17.5) L 03/17/21 21:00 ABG Oxyhemoglobin 88.6 (94-98) L 03/17/21 21:00 ABG Carboxyhemoglobin 1.2 % (0.0-5.0) 03/17/21 10:48 ABG Methemoglobin 0.3 (0.0-1.5) 03/17/21 21:00 ABG Sodium 138.1 mmol/L (136.0-145.0) 03/17/21 21:00 ABG Potassium 4.7 mmol/L (3.40-4.50) H 03/17/21 21:00 ABG Chloride 104.0 mmol/L (98-107) 03/17/21 21:00 ABG Glucose 99 mg/dL (65-95) H 03/17/21 21:00 Oxyhemoglobin 95.0 % (95.0-99.0) 03/17/21 10:48 Carboxyhemoglobin 0.3 (0.5-1.5) L 03/17/21 21:00 FiO2 60 % 03/17/21 10:48 FiO2 % 60.0 03/17/21 21:00 Sodium 142 mmol/L (137-145) 03/18/21 04:30 Potassium 4.6 mmol/L (3.6-5.0) 03/18/21 04:30 Chloride 101.8 mmol/L (98-107) 03/18/21 04:30 Carbon Dioxide 24 mmol/L (22-30) 03/18/21 04:30 Anion Gap 21 mmol/L 03/18/21 04:30 BUN 69 mg/dL (7-17) H 03/18/21 04:30 Creatinine 7.3 mg/dL (0.6-1.2) H 03/18/21 04:30 Estimated GFR 8 ml/min 03/18/21 04:30 BUN/Creatinine Ratio 9 % 03/18/21 04:30 Glucose 98 mg/dL (65-100) 03/18/21 04:30 POC Glucose 114 mg/dL (70-105) H 03/18/21 11:34 Hemoglobin A1c 6.3 % (4-6) H 03/15/21 05:09 Lactic Acid 2.00 mmol/L (0.7-2.0) 03/14/21 18:47 Calcium 8.2 mg/dL (8.4-10.2) L 03/18/21 04:30 Phosphorus 7.60 mg/dL (2.5-4.5) H D 03/18/21 04:30 Magnesium 2.10 mg/dL (1.7-2.3) 03/18/21 04:30 Ferritin 151.6 ng/mL (10.0-200.0) 03/18/21 04:30 Total Bilirubin 0.20 mg/dL (0.1-1.2) 03/17/21 05:23 AST 35 units/L (5-40) 03/17/21 05:23 ALT 24 units/L (7-56) 03/17/21 05:23 Alkaline Phosphatase 78 units/L (35-129) 03/17/21 05:23 Lactate Dehydrogenase 477 units/L (91-180) H 03/18/21 04:30 C-Reactive Protein 6.90 mg/dL (0.00-1.30) H 03/18/21 04:30 Total Protein 6.7 g/dL (6.3-8.2) 03/17/21 05:23 Albumin 3.2 g/dL (3.9-5) L 03/17/21 05:23 Albumin/Globulin Ratio 0.9 % 03/17/21 05:23 Triglycerides 285 mg/dL (2-149) H 03/17/21 05:23 Procalcitonin < 0.05 ng/mL (<0.15) 03/13/21 15:40 HCG, Qual Negative (Negative) 03/13/21 13:26 Arterial Blood Glucose 99 mg/dL (65-95) H 03/17/21 21:00 Arterial Blood Ionized Calcium 4.3 mg/dL (4.6-5.3) L 03/17/21 21:00 Urine Creatinine 40.1 mg/dL (0.1-20.0) H 03/14/21 17:50 Urine Sodium 124 mmol/L 03/14/21 17:50 Coronavirus (PCR) Positive (Negative) A 03/14/21 Unknown Hepatitis A IgM Ab Non-reactive (NonReactive) 03/15/21 05:09 Hep Bs Antigen Nonreactive (Negative) 03/15/21 05:09 Hep B Core IgM Ab Non-reactive (NonReactive) 03/15/21 05:09 Hepatitis C Antibody Non-reactive (NonReactive) 03/15/21 05:09 Microbiology: Microbiology 03/14/21 01:25 Tracheal Aspirate Sputum Culture - Preliminary Staphylococcus Aureus 03/13/21 15:40 Peripheral/Venous Blood Culture - Preliminary NO GROWTH AFTER 4 DAYS 03/13/21 15:40 Peripheral/Venous Blood Culture - Preliminary NO GROWTH AFTER 4 DAYS Bazan/IV: Voiding Method Indwelling Catheter Active Medications - Current Medications Current Medications: Generic Name Dose Route Start Last Admin Trade Name Freq PRN Reason Stop Dose Admin Acetaminophen 650 mg 03/13/21 19:30 Acetaminophen 325 Mg Tab PO Q4H PRN Pain MILD(1-3)/Fever >100.5/SALAS Acetylcysteine 200 mg 03/18/21 20:00 Acetylcysteine 20% Soln 4ml (200 Mg/Ml) IH Q6HRT INESSA Albuterol/Ipratropium 1 ampul 03/13/21 20:00 03/18/21 16:28 Ipratropium/Albuterol Sulfate 3 Ml Ampul.Neb IH Not Given QIDRT INESSA Lipase/Protease/Amylase 1 each 03/15/21 11:42 Lipase 10,500/Protease 25,000/Amylase 43,750 (Units) Dr White FEEDTUBE PRN PRN For Clogged Feeding Tube Ascorbic Acid 500 mg 03/14/21 22:00 03/18/21 10:04 Ascorbic Acid 500 Mg Tab PO 500 mg BID INESSA Administration Dexamethasone 6 mg 03/16/21 10:00 03/18/21 10:06 Dexamethasone 4 Mg/Ml Vial IV 03/23/21 10:01 6 mg Q24H INESSA Administration Dextrose 50 ml 03/14/21 11:02 03/15/21 11:40 Dextrose 50% In Water (25gm) 50 Ml Syringe IV 50 ml Q30MIN PRN Administration Hypoglycemia Protocol Famotidine 10 mg 03/17/21 22:00 03/18/21 10:03 Famotidine 10 Mg Tab PO 10 mg BID INESSA Administration Fentanyl 50 mcg 03/15/21 10:43 Fentanyl 100 Mcg/2 Ml Inj IV Q10MIN PRN ANALGESIA Heparin Sodium (Porcine) 7,500 unit 03/18/21 10:00 03/18/21 10:14 Heparin 5,000 Unit/1 Ml Vial SUB-Q 7,500 unit Q12HR INESSA Administration Hydralazine HCl 10 mg 03/15/21 10:10 03/15/21 10:32 Hydralazine 20 Mg/1 Ml Inj IV 10 mg Q4HR PRN Administration Hypertension Hydrophilic Ointment 1 applic 03/14/21 17:50 Lip Therapy Vaseline TP Q2HR PRN Dry Lips Propofol 1,000 mg in 100 mls @ 4.123 mls/hr 03/15/21 11:00 03/18/21 12:34 Diprivan 10 Mg/Ml IV 20 mcg/kg/min TITR INESSA 16.493 mls/hr Titration Protocol 5 MCG/KG/MIN Fentanyl Citrate 2,000 mcg in 100 mls @ 6.872 mls/hr 03/15/21 11:00 03/18/21 12:21 Fentanyl Drip Premix IV 3 mcg/kg/hr TITR INESSA 20.616 mls/hr Administration Protocol 1 MCG/KG/HR Sodium Chloride 500 mls @ 1 mls/hr 03/16/21 17:19 Nacl 0.9% 500 Ml IV DIRECT PRN ARTERIAL LINE FLUSH Sodium Chloride 100 mls @ 999 mls/hr 03/18/21 10:00 Nacl 0.9% IV KARLOS PRN Hypotension Insulin Human Lispro 0 unit 03/14/21 12:00 03/18/21 12:13 Insulin Lispro 100 Unit/Ml SUB-Q Not Given Q6HR [facility] Protocol Lorazepam 1 mg 03/13/21 19:40 03/18/21 14:11 Lorazepam 2 Mg/Ml Vial IV 1 mg Q4H PRN Administration Anxiety Metoclopramide HCl 5 mg 03/18/21 16:00 03/18/21 16:49 Metoclopramide 10 Mg/2 Ml Inj IV 5 mg Q6H INESSA Administration Multi-Ingred Cream/Lotion/Oil/Oint 1 applic 03/14/21 17:50 Mineral Oil/Petrolatum, White Ophth Oint 3.5 Gm OU Q4HR PRN Dry Eye(s) Ondansetron HCl 4 mg 03/13/21 19:30 03/13/21 22:29 Ondansetron 4 Mg/2 Ml Inj IV 4 mg Q8H PRN Administration Nausea And Vomiting Senna/Docusate Sodium 1 tab 03/14/21 22:00 03/18/21 10:03 Sennosides/Docusate Sodium 8.6/50 Mg Tab FEEDTUBE 1 tab BID INESSA Administration Simple Syrup 15 ml 03/15/21 11:42 Simple Syrup 15 Ml FEEDTUBE PRN PRN Hypoglycemia Simple Syrup 30 ml 03/15/21 11:42 Simple Syrup 15 Ml FEEDTUBE PRN PRN Hypoglycemia Sodium Bicarbonate 325 mg 03/15/21 11:42 Sodium Bicarbonate 325 Mg Tab FEEDTUBE PRN PRN For Clogged Feeding Tube Sodium Chloride 10 ml 03/13/21 22:00 03/18/21 10:05 Sodium Chloride 0.9% 10 Ml Flush Syringe IV 10 ml BID INESSA Administration Sodium Chloride 10 ml 03/13/21 19:30 Sodium Chloride 0.9% 10 Ml Flush Syringe IV PRN PRN LINE FLUSH Zinc Sulfate 220 mg 03/14/21 22:00 03/18/21 10:03 Zinc Sulfate 220 Mg Cap PO 220 mg BID INESSA Administration Nutrition/Malnutrition Assess - Dietary Evaluation Nutrition/Malnutrition Findings: Nutrition Notes Start: 03/15/21 11:06 Freq: Status: Active Protocol: Document 03/17/21 11:24 GB (Rec: 03/17/21 11:37 GB [id number]) Nutrition Notes Initial or Follow up Reassessment Current Diagnosis Respiratory Failure Other Pertinent Diagnosis SOB. PMHx: asthma, morbid obesity, crohn's disease Current Diet No diet order: should be NPO - Tube Feeding Labs/Tests 03/17: Na 136, K 5.2, BUN 79, creatinine 8.4, glucose 125, P 9.9, Mg 2.4 A1c 6.3 Pertinent Medications Vit C, D5(PRN), Fentanyl Citrate, Propofol 16.493ml/hr (435kcal), Zn Sulfate Height 5 ft 5 in Weight 137.438 kg [place] Body Weight (kg) 56.81 BMI 50.4 Weight change and time frame No new weights recorded at time of assessment Weight Status Morbidly Obese Subjective/Other Information Change of formula from Vital AF to Nepro r/t dialysis Pt is intubated/sedated BM: no BM recorded at time of assessment Percent of energy/protein needs met: TF at goal will meet 75% or greater of minimal EEN Burn Absent Trauma Absent GI Symptoms Constipation Difficulty In Swallowing Food Allergy No Skin Integrity/Comment No complications reported Current % PO Other Minimum of two criteria No #1 Nutrition Diagnosis Swallowing difficulty Comments: 03/17: intubation/sedation/TF continues Etiology SOB, respiratory failure As Evidenced by Signs and Symptoms intubated/sedated (03/14) Diagnosis Progress(for reassessment Continues documentation) Is patient on ventilator? Yes Is Patient Ambulatory and/or Out of Bed No REE-([facility]-confined to bed) 2515.536 Kcal/Kg value to use for calculation 15 Approximate Energy Requirements Using 2 kcal/Kg Calculation Used for Recommendations Kcal/kg Additional Notes Protein 0.6g/kg or greater @ 137g or greater Fluids: 1ml/kcal or per MD Nutrition Intervention Change Diet Order: NPO Nutrition Support: Vital AF 1.2 @ 55ml/hr - d/c 03/17 03/17: change to Nepro @ 44ml/ hr Flush: 155ml/4hr Total free H2O/day: TF@goal + flush = 1700ml Kcal 1,900 Protein (gm) 86 Carbohydrates (gm) 170 Fat (gm) 101 Fluid (mL) 767 Fiber (gm) 13 % RDI: 100kcal/104pro Goal #1 TF started and tolerated by f/ u 03/17 met, changing to nepro Goal #2 TF at goal by f/u Follow-Up By: 03/19/21 Additional Comments f/u: TF tolerance, vent status
[2021-03-18] MEDS ORDERED: METOCLOPRAMIDE 10 MG/2 ML INJ IV SCH (17:00)
[2021-03-18] MEDS ORDERED: ACETYLCYSTEINE 20% SOLN 4ML (200 MG/ML) IH SCH (20:00)
[2021-03-18 22:08] LABS: ABG Base Excess 0.7 mmol/L (-2.0-3.0); ABG Methemoglobin 0.5 % (0.0-1.5); ABG Oxygen Saturation 97.9 % (95.0-99.0); ABG PCO2 59.4 mm Hg; ABG PH 7.29 pH Units (7.350-7.450); ABG PO2 119.7 mm Hg (80.0-90.0)
[2021-03-19] MEDS ORDERED: ALBUTEROL 2.5 MG/3 ML NEBU IH PRN (00:53)
[2021-03-19] MEDS: fentaNYL DRIP Premix 2,000 MCG/100 ML BAG IV SCH ×6 (02:38→22:50)
[2021-03-19] MEDS: METOCLOPRAMIDE 10 MG/2 ML INJ IV SCH ×3 (04:00→21:59)
[2021-03-19 05:05] LABS: Hematocrit 28.1 % (30.3-42.9); Mean Corpuscular HGB Conc 32 % (30-34); Mean Corpuscular Volume 85 fl (79-97); Platelet Count 144 K/mm3 (140-440); Red Blood Count 3.32 M/mm3 (3.65-5.03); Red Cell Distribution Width 16.9 % (13.2-15.2)
[2021-03-19 05:29] LABS: Calcium 8.1 mg/dL (8.4-10.2)
[2021-03-19] MEDS: INSULIN LISPRO 100 UNIT/ML SUB-Q SCH ×4 (05:45→19:04)
[2021-03-19] MEDS ORDERED: SODIUM CHLORIDE 0.9% 100 ML IV PRN (08:30)
[2021-03-19] MEDS: IPRATROPIUM/ALBUTEROL SULFATE 3 ML AMPUL.NEB IH SCH ×3 (09:19→19:26)
[2021-03-19] MEDS: ASCORBIC ACID 500 MG TAB PO SCH ×2 (10:00→21:59)
[2021-03-19] MEDS: FAMOTIDINE 10 MG TAB PO SCH ×2 (10:00→21:59)
[2021-03-19] MEDS: HEPARIN 5,000 UNIT/1 ML VIAL SUB-Q SCH ×2 (10:00→21:59)
[2021-03-19] MEDS: SENNOSIDES/DOCUSATE SODIUM 8.6/50 MG TAB FEEDTUBE SCH ×2 (10:00→21:59)
--- NOTE | 2021-03-19 11:03 | Progress Note ---
Subjective Principal diagnosis: Ac hypoxemic resp failure; AE-Asthma; SAI; Crohn's; COVID- 19; Pneumonia Interval history: Patient was seen today for follow-up of multiple renal related issues remains critically ill, dialysis dependent, receiving hemodialysis treatment today Interdisciplinary notes were also reviewed Events of 24 hours vitals labs intake output medications were reviewed Past medical history: Reviewed Family history: Reviewed Social history: Reviewed Allergies: Reviewed Physical examination: Vitals: Reviewed HEENT:intubated Neck: Supple no JVD no thyromegaly Chest: Bilateral diminished at lung bases Heart: Regular rate and rhythm S1-S2 heard no S3-S4 Abdomen: Soft nontender no voluntary guarding rigidity rebound Extremity: Dry skin less than 1+ peripheral edema Psychiatric: No evidence of agitation and aggression noted Dermatology: No petechial rashes Labs and x-rays: Reviewed from today Assessment and plan #Acute kidney injury most likely resulting from acute tubular necrosis patient was initiated on renal replacement therapy There is no meaningful recovery of renal function at this time and hence will need to continue with renal placement therapy till recovers Renal care plan has been discussed with her mother already Lab results reviewed from today patient will need daily dialysis for now except for Monday if needed will be done on Monday as well increase ultrafiltration goal discussed with pulmonary service yesterday, this will be done as tolerated discussed with dialysis nurse to ultrafiltrate only as tolerated #Respiratory failure, Covid infection, currently intubated on ventilatory support, Patient was not vaccination #Covid 19 infection with multiorgan failure-like picture: Prognosis appears to be guarded to poor #Hyperphosphatemia improving will benefit from daily dialysis #Avoid nephrotoxic medications, Renal ultrasonogram: Shows slightly echogenic kidneys sizes 11.2 and 11.9 cm #Anemia/ with renal failure, also multifactorial patient will be continuing with erythropoietin weekly #Hyponatremia: To monitor and follow #Acidosis appears to have improved postdialysis and intubation #Lactic acid 2.0 hemoglobin A1c 6.3 Ca 9.0, needs serial monitoring and follow- up #hyperphosphatemia from 3.5 has gone up to 6.0 will monitor and follow binders if needed #Respiratory failure blood gases appear to be improving: Satisfactory today diagnosed with Covid 19 infection, never received vaccine, prognosis guarded #Hyperkalemia: Appears to have stabilized postdialysis time spent in critical care setting 35 minutes We'll continue to follow and make recommendation for renal standpoint Objective - Vital Signs Vital signs: Vital Signs - 12hr 03/18/21 03/18/21 03/18/21 23:15 23:21 23:30 Temperature Pulse Rate 105 H 105 H 104 H Pulse Rate [ Anterior Bilateral Throughout] Respiratory 22 20 Rate Respiratory Rate [Anterior Bilateral Throughout] Blood Pressure 111/71 111/71 117/63 O2 Sat by Pulse 97 96 94 Oximetry 03/18/21 03/19/21 03/19/21 23:45 00:00 00:15 Temperature 99.2 F Pulse Rate 104 H 102 H 104 H Pulse Rate [ Anterior Bilateral Throughout] Respiratory 16 17 15 Rate Respiratory Rate [Anterior Bilateral Throughout] Blood Pressure 109/66 113/65 119/61 O2 Sat by Pulse 94 96 95 Oximetry 03/19/21 03/19/21 03/19/21 00:30 00:45 00:48 Temperature Pulse Rate 104 H 109 H Pulse Rate [ Anterior Bilateral Throughout] Respiratory 19 21 Rate Respiratory Rate [Anterior Bilateral Throughout] Blood Pressure 114/67 118/73 O2 Sat by Pulse 96 94 94 Oximetry 03/19/21 03/19/21 03/19/21 01:00 01:15 01:30 Temperature Pulse Rate 111 H 111 H 105 H Pulse Rate [ Anterior Bilateral Throughout] Respiratory 21 21 20 Rate Respiratory Rate [Anterior Bilateral Throughout] Blood Pressure 121/74 129/68 104/46 O2 Sat by Pulse 94 93 94 Oximetry 03/19/21 03/19/21 03/19/21 01:45 02:00 02:15 Temperature Pulse Rate 103 H 105 H 108 H Pulse Rate [ Anterior Bilateral Throughout] Respiratory 21 17 18 Rate Respiratory Rate [Anterior Bilateral Throughout] Blood Pressure 99/42 97/43 123/72 O2 Sat by Pulse 97 95 95 Oximetry 03/19/21 03/19/21 03/19/21 02:30 02:45 03:00 Temperature Pulse Rate 102 H 105 H 101 H Pulse Rate [ Anterior Bilateral Throughout] Respiratory 21 17 17 Rate Respiratory Rate [Anterior Bilateral Throughout] Blood Pressure 102/53 112/59 114/64 O2 Sat by Pulse 94 94 94 Oximetry 03/19/21 03/19/21 03/19/21 03:15 03:30 03:45 Temperature Pulse Rate 105 H 100 H 102 H Pulse Rate [ Anterior Bilateral Throughout] Respiratory 24 18 22 Rate Respiratory Rate [Anterior Bilateral Throughout] Blood Pressure 128/82 103/65 115/56 O2 Sat by Pulse 93 97 94 Oximetry 03/19/21 03/19/21 03/19/21 04:00 04:15 04:30 Temperature 99.2 F Pulse Rate 99 H 99 H 100 H Pulse Rate [ Anterior Bilateral Throughout] Respiratory 19 21 21 Rate Respiratory Rate [Anterior Bilateral Throughout] Blood Pressure 107/56 100/54 112/69 O2 Sat by Pulse 97 95 97 Oximetry 03/19/21 03/19/21 03/19/21 04:42 04:45 05:00 Temperature Pulse Rate 102 H 103 H 103 H Pulse Rate [ Anterior Bilateral Throughout] Respiratory 20 21 Rate Respiratory Rate [Anterior Bilateral Throughout] Blood Pressure 112/69 112/65 116/64 O2 Sat by Pulse 96 95 95 Oximetry 03/19/21 03/19/21 03/19/21 05:15 05:30 05:45 Temperature Pulse Rate 102 H 101 H 102 H Pulse Rate [ Anterior Bilateral Throughout] Respiratory 22 22 21 Rate Respiratory Rate [Anterior Bilateral Throughout] Blood Pressure 102/48 108/57 113/65 O2 Sat by Pulse 90 92 94 Oximetry 03/19/21 03/19/21 03/19/21 06:00 06:15 06:31 Temperature Pulse Rate 101 H 98 H 110 H Pulse Rate [ Anterior Bilateral Throughout] Respiratory 19 20 19 Rate Respiratory Rate [Anterior Bilateral Throughout] Blood Pressure 111/58 103/49 139/86 O2 Sat by Pulse 93 93 91 Oximetry 03/19/21 03/19/21 03/19/21 07:32 09:19 09:25 Temperature 99.1 F Pulse Rate 104 H Pulse Rate [ 106 H Anterior Bilateral Throughout] Respiratory Rate Respiratory 20 Rate [Anterior Bilateral Throughout] Blood Pressure 109/65 O2 Sat by Pulse 96 Oximetry - Lab 03/19/21 04:13 03/19/21 04:13 Most recent lab results ABG pH 7.290 pH Units (7.350-7.450) L 03/18/21 21:44 ABG pCO2 59.4 mm Hg 03/18/21 21:44 ABG pO2 119.7 mm Hg (80.0-90.0) H 03/18/21 21:44 ABG HCO3 28.0 mmol/L (20.0-26.0) H 03/18/21 21:44 ABG O2 Saturation 97.9 % (95.0-99.0) 03/18/21 21:44 Calcium 8.1 mg/dL (8.4-10.2) L 03/19/21 04:13 Phosphorus 7.90 mg/dL (2.5-4.5) H 03/19/21 04:13 Magnesium 2.10 mg/dL (1.7-2.3) 03/19/21 04:13 Urine Creatinine 40.1 mg/dL (0.1-20.0) H 03/14/21 17:50 Urine Sodium 124 mmol/L 03/14/21 17:50 Medications & Allergies - Medications Allergies/Adverse Reactions: Allergies acetaminophen [From Percocet] Adverse Reaction (Verified 03/13/21 12:45) Swelling hydrocodone bitartrate [From Vicodin] Adverse Reaction (Verified 03/13/21 12:45) Swelling oxycodone HCl [From Percocet] Adverse Reaction (Verified 03/13/21 12:45) Swelling Home Medications: Home Medications Medication Instructions Recorded Confirmed Last Taken Type Chlorhexidine Mouthwash [Peridex] 15 ml MM BID #1 bottle 10/11/20 03/13/21 Unknown Rx Clindamycin [Clindamycin CAP] 300 mg PO Q8H #21 cap 10/11/20 03/13/21 Unknown Rx Naproxen 500 mg PO Q12H PRN #12 tablet 10/11/20 03/13/21 Unknown Rx Butalb/Acetamin/Caff 50-325-40 1 - 2 tab PO Q6HR PRN #15 tab 12/05/20 03/13/21 Unknown Rx [Fioricet 50-325-40] Famotidine [Pepcid] 20 mg PO BID #30 tablet 12/05/20 03/13/21 Unknown Rx Ketorolac [Toradol] 10 mg PO Q8H PRN #20 tablet 12/05/20 03/13/21 Unknown Rx Ondansetron [Zofran Odt] 4 mg PO Q6HR PRN #20 tab.rapdis 12/05/20 03/13/21 Un known Rx Albuterol Sulfate [Proair 90 mcg IH Q4HR PRN #2 [email or web address] 01/01/21 03/13/21 Unknown Rx Respiclick] Mupirocin [Bactroban 2% OINT] 1 applic TP BID 7 Days #1 tube 01/01/21 03/13/21 Unknown Rx Triamcinolone Aceton 0.1% (Nf) 1 applic TP BID 14 Days #1 tube 01/01/21 03/13/21 Unknown Rx [Kenalog (NF)] predniSONE [Deltasone] 40 mg PO QDAY #8 tab 01/01/21 03/13/21 Unknown Rx Active Medications: Generic Name Dose Route Start Last Admin Trade Name Freq PRN Reason Stop Dose Admin Acetaminophen 650 mg 03/13/21 19:30 Acetaminophen 325 Mg Tab PO Q4H PRN Pain MILD(1-3)/Fever >100.5/SALAS Acetylcysteine 200 mg 03/18/21 20:00 Acetylcysteine 20% Soln 4ml (200 Mg/Ml) IH Q6HRT INESSA Albuterol 2.5 mg 03/19/21 00:53 Albuterol 2.5 Mg/3 Ml Nebu IH Q4HRT PRN Shortness Of Breath Albuterol/Ipratropium 1 ampul 03/19/21 08:00 03/19/21 09:19 Ipratropium/Albuterol Sulfate 3 Ml Ampul.Neb IH 1 ampul Q6HRT INESSA Administration Lipase/Protease/Amylase 1 each 03/15/21 11:42 Lipase 10,500/Protease 25,000/Amylase 43,750 (Units) Dr Christopher PEREZ PRN PRN For Clogged Feeding Tube Ascorbic Acid 500 mg 03/14/21 22:00 03/18/21 21:27 Ascorbic Acid 500 Mg Tab PO 500 mg BID INESSA Administration Dexamethasone 6 mg 03/16/21 10:00 03/18/21 10:06 Dexamethasone 4 Mg/Ml Vial IV 03/23/21 10:01 6 mg Q24H INESSA Administration Dextrose 50 ml 03/14/21 11:02 03/15/21 11:40 Dextrose 50% In Water (25gm) 50 Ml Syringe IV 50 ml Q30MIN PRN Administration Hypoglycemia Protocol Famotidine 10 mg 03/17/21 22:00 03/18/21 21:26 Famotidine 10 Mg Tab PO 10 mg BID INESSA Administration Fentanyl 50 mcg 03/15/21 10:43 Fentanyl 100 Mcg/2 Ml Inj IV Q10MIN PRN ANALGESIA Heparin Sodium (Porcine) 7,500 unit 03/18/21 10:00 03/18/21 21:26 Heparin 5,000 Unit/1 Ml Vial SUB-Q 7,500 unit Q12HR INESSA Administration Hydralazine HCl 10 mg 03/15/21 10:10 03/15/21 10:32 Hydralazine 20 Mg/1 Ml Inj IV 10 mg Q4HR PRN Administration Hypertension Hydrophilic Ointment 1 applic 03/14/21 17:50 Lip Therapy Vaseline TP Q2HR PRN Dry Lips Propofol 1,000 mg in 100 mls @ 4.123 mls/hr 03/15/21 11:00 03/19/21 05:44 Diprivan 10 Mg/Ml IV 20 mcg/kg/min TITR INESSA 16.493 mls/hr Administration Protocol 5 MCG/KG/MIN Fentanyl Citrate 2,000 mcg in 100 mls @ 6.872 mls/hr 03/15/21 11:00 03/19/21 06:20 Fentanyl Drip Premix IV 3 mcg/kg/hr TITR INESSA 20.616 mls/hr Administration Protocol 1 MCG/KG/HR Sodium Chloride 500 mls @ 1 mls/hr 03/16/21 17:19 Nacl 0.9% 500 Ml IV DIRECT PRN ARTERIAL LINE FLUSH Sodium Chloride 100 mls @ 999 mls/hr 03/19/21 08:30 Nacl 0.9% IV KARLOS PRN Hypotension Insulin Human Lispro 0 unit 03/14/21 12:00 03/19/21 06:21 Insulin Lispro 100 Unit/Ml SUB-Q Not Given Q6HR [facility] Protocol Lorazepam 1 mg 03/13/21 19:40 03/18/21 14:11 Lorazepam 2 Mg/Ml Vial IV 1 mg Q4H PRN Administration Anxiety Metoclopramide HCl 5 mg 03/18/21 16:00 03/19/21 04:00 Metoclopramide 10 Mg/2 Ml Inj IV 5 mg Q6H INESSA Administration Multi-Ingred Cream/Lotion/Oil/Oint 1 applic 03/14/21 17:50 Mineral Oil/Petrolatum, White Ophth Oint 3.5 Gm OU Q4HR PRN Dry Eye(s) Ondansetron HCl 4 mg 03/13/21 19:30 03/13/21 22:29 Ondansetron 4 Mg/2 Ml Inj IV 4 mg Q8H PRN Administration Nausea And Vomiting Senna/Docusate Sodium 1 tab 03/14/21 22:00 03/18/21 21:27 Sennosides/Docusate Sodium 8.6/50 Mg Tab FEEDTUBE 1 tab BID INESSA Administration Simple Syrup 15 ml 03/15/21 11:42 Simple Syrup 15 Ml FEEDTUBE PRN PRN Hypoglycemia Simple Syrup 30 ml 03/15/21 11:42 Simple Syrup 15 Ml FEEDTUBE PRN PRN Hypoglycemia Sodium Bicarbonate 325 mg 03/15/21 11:42 Sodium Bicarbonate 325 Mg Tab FEEDTUBE PRN PRN For Clogged Feeding Tube Sodium Chloride 10 ml 03/13/21 22:00 03/18/21 21:27 Sodium Chloride 0.9% 10 Ml Flush Syringe IV 10 ml BID INESSA Administration Sodium Chloride 10 ml 03/13/21 19:30 Sodium Chloride 0.9% 10 Ml Flush Syringe IV PRN PRN LINE FLUSH Zinc Sulfate 220 mg 03/14/21 22:00 03/18/21 21:27 Zinc Sulfate 220 Mg Cap PO 220 mg BID INESSA Administration
--- NOTE | 2021-03-19 12:02 | Progress Note ---
Assessment and Plan Acute hypoxemic respiratory failure Acute asthma exacerbation Morbid obesity Crohn's disease Metabolic acidosis Acute kidney injury Coronavirus infection Pneumonia (CAP) Oropharyngeal dysphagia Obesity, if not mentioned above - Increased Reglan to 10mg IV q8h - reduced FiO2 to 90% and increased peep to 10 cm H2O - continue to advance tube feeds to goal as tolerated - keep set rate at 20/min - follow repeat ABG and address - continue care as below otherwise; - HD/UF sessions per nephrology prescription - vasopressors for target MAP > 65 mmHg - continue Daily SAT and SBT assessment as tolerated - continue to wean supplemental oxygen for target O2 sat's > 90% acutely - VAP bundle addressed - continue lung protective strategies - continue bronchodilators with pulmonary hygiene per RT - wean per pulmonary driven protocols otherwise - continue accuchecks with glycemic control per SSI (While critically ill target blood glucose of 140-180 mg/dL; avoid hypoglycemia) - sedation prn for target RASS 0 to -1 - avoid nephrotoxins, renally dose all medications - continue to avoid benzodiazepine's, reduce the possibility of delirium - AB's per ID rec's - prn analgesia per CPOT score - Maintenance of sleep-wake cycle, avoid delirium - continue enteral nutritional support at goal rate as tolerated - G.I. & VTE prophylaxis - PT/OT/ROM exercises - continue mobility protocols for pressure ulcer prophylaxis - Monitor hemodynamics closely - continue other care per attending / other consultants - discharge planning ongoing concurrently COVID SPECIFIC INTERVENTIONS - Actemra ordered if available - Remdesivir as per ID/Pulmonary developed protocols (not a candidate) - continue systemic steroids for severe COVID-19 infection empirically - follow repeat COVID tests results - zinc and vitamin C supplementation - Monitor inflammatory markers per facility protocol - ferritin, Ddimer, CRP - therapeutic anticoagulation per system Protocol based on d-dimer and clinical considerations (VTE prophylaxis) - Continue contact and airborne isolation .... Re-evaluate in am & prn CONDITION: CRITICAL PROGNOSIS: GUARDED CODE STATUS: FULL CODE The high probability of a clinically significant, sudden or life-threatening deterioration of the [respiratory, cardiovascular, renal & neurologic] system(s) required my full and direct attention, intervention and personal management. The aggregate critical care time was [35] minutes without overlap. Time includes spent on; [x] Data Review and interpretation [x] Patient assessment and monitoring of vital signs [x] Documentation [x] Medication orders and management Subjective Date of service: 03/19/21 Principal diagnosis: Ac hypoxemic resp failure; AE-Asthma; SAI; Crohn's; COVID- 19; Pneumonia Interval history: Patient is seen today for: Acute hypoxemic respiratory failure; AE-Asthma; SAI; Crohn's disease; COVID-19 infection; Pneumonia (CAP) Seen and examined at bedside; 24hour events reviewed; nursing and respiratory care staff consulted; no adverse overnight events reported to me; resting in bed; + continued high gastric residuals noted; HD/UF ongoing at time of my evaluation; FiO2 at 100% with some room to wean; PIP's much lower in the low 30's Objective Vital Signs - 12hr 03/19/21 03/19/21 03/19/21 00:15 00:30 00:45 Temperature Pulse Rate 104 H 104 H 109 H Pulse Rate [ Anterior Bilateral Throughout] Respiratory 15 19 21 Rate Respiratory Rate [Anterior Bilateral Throughout] Blood Pressure 119/61 114/67 118/73 O2 Sat by Pulse 95 96 94 Oximetry O2 Sat by Pulse Oximetry [ Anterior Bilateral Throughout] O2 Sat by Pulse Oximetry [ Bilateral] 03/19/21 03/19/21 03/19/21 00:48 01:00 01:15 Temperature Pulse Rate 111 H 111 H Pulse Rate [ Anterior Bilateral Throughout] Respiratory 21 21 Rate Respiratory Rate [Anterior Bilateral Throughout] Blood Pressure 121/74 129/68 O2 Sat by Pulse 94 94 93 Oximetry O2 Sat by Pulse Oximetry [ Anterior Bilateral Throughout] O2 Sat by Pulse Oximetry [ Bilateral] 03/19/21 03/19/21 03/19/21 01:30 01:45 02:00 Temperature Pulse Rate 105 H 103 H 105 H Pulse Rate [ Anterior Bilateral Throughout] Respiratory 20 21 17 Rate Respiratory Rate [Anterior Bilateral Throughout] Blood Pressure 104/46 99/42 97/43 O2 Sat by Pulse 94 97 95 Oximetry O2 Sat by Pulse Oximetry [ Anterior Bilateral Throughout] O2 Sat by Pulse Oximetry [ Bilateral] 03/19/21 03/19/21 03/19/21 02:15 02:30 02:45 Temperature Pulse Rate 108 H 102 H 105 H Pulse Rate [ Anterior Bilateral Throughout] Respiratory 18 21 17 Rate Respiratory Rate [Anterior Bilateral Throughout] Blood Pressure 123/72 102/53 112/59 O2 Sat by Pulse 95 94 94 Oximetry O2 Sat by Pulse Oximetry [ Anterior Bilateral Throughout] O2 Sat by Pulse Oximetry [ Bilateral] 03/19/21 03/19/21 03/19/21 03:00 03:15 03:30 Temperature Pulse Rate 101 H 105 H 100 H Pulse Rate [ Anterior Bilateral Throughout] Respiratory 17 24 18 Rate Respiratory Rate [Anterior Bilateral Throughout] Blood Pressure 114/64 128/82 103/65 O2 Sat by Pulse 94 93 97 Oximetry O2 Sat by Pulse Oximetry [ Anterior Bilateral Throughout] O2 Sat by Pulse Oximetry [ Bilateral] 03/19/21 03/19/21 03/19/21 03:45 04:00 04:15 Temperature 99.2 F Pulse Rate 102 H 99 H 99 H Pulse Rate [ Anterior Bilateral Throughout] Respiratory 22 19 21 Rate Respiratory Rate [Anterior Bilateral Throughout] Blood Pressure 115/56 107/56 100/54 O2 Sat by Pulse 94 97 95 Oximetry O2 Sat by Pulse Oximetry [ Anterior Bilateral Throughout] O2 Sat by Pulse Oximetry [ Bilateral] 03/19/21 03/19/21 03/19/21 04:30 04:42 04:45 Temperature Pulse Rate 100 H 102 H 103 H Pulse Rate [ Anterior Bilateral Throughout] Respiratory 21 20 Rate Respiratory Rate [Anterior Bilateral Throughout] Blood Pressure 112/69 112/69 112/65 O2 Sat by Pulse 97 96 95 Oximetry O2 Sat by Pulse Oximetry [ Anterior Bilateral Throughout] O2 Sat by Pulse Oximetry [ Bilateral] 03/19/21 03/19/21 03/19/21 05:00 05:15 05:30 Temperature Pulse Rate 103 H 102 H 101 H Pulse Rate [ Anterior Bilateral Throughout] Respiratory 21 22 22 Rate Respiratory Rate [Anterior Bilateral Throughout] Blood Pressure 116/64 102/48 108/57 O2 Sat by Pulse 95 90 92 Oximetry O2 Sat by Pulse Oximetry [ Anterior Bilateral Throughout] O2 Sat by Pulse Oximetry [ Bilateral] 03/19/21 03/19/21 03/19/21 05:45 06:00 06:15 Temperature Pulse Rate 102 H 101 H 98 H Pulse Rate [ Anterior Bilateral Throughout] Respiratory 21 19 20 Rate Respiratory Rate [Anterior Bilateral Throughout] Blood Pressure 113/65 111/58 103/49 O2 Sat by Pulse 94 93 93 Oximetry O2 Sat by Pulse Oximetry [ Anterior Bilateral Throughout] O2 Sat by Pulse Oximetry [ Bilateral] 03/19/21 03/19/21 03/19/21 06:31 07:32 09:19 Temperature 99.1 F Pulse Rate 110 H 104 H Pulse Rate [ Anterior Bilateral Throughout] Respiratory 19 Rate Respiratory Rate [Anterior Bilateral Throughout] Blood Pressure 139/86 109/65 O2 Sat by Pulse 91 96 Oximetry O2 Sat by Pulse Oximetry [ Anterior Bilateral Throughout] O2 Sat by Pulse Oximetry [ Bilateral] 03/19/21 03/19/21 09:25 10:45 Temperature 99.2 F Pulse Rate 104 H Pulse Rate [ 106 H Anterior Bilateral Throughout] Respiratory 35 H Rate Respiratory 20 Rate [Anterior Bilateral Throughout] Blood Pressure 142/94 O2 Sat by Pulse Oximetry O2 Sat by Pulse 94 Oximetry [ Anterior Bilateral Throughout] O2 Sat by Pulse 94 Oximetry [ Bilateral] Constitutional: no acute distress, other (morbidly obese female with mild ventilator dyssynchrony) Eyes: non-icteric ENT: oropharynx moist, other (ETT 26 cm BALJINDER) Neck: supple, no lymphadenopathy, no JVD, other (large circumference) Effort: mildly labored Ascultation: Bilateral: diminished breath sounds, rhonchi Percussion: Bilateral: not dull Cardiovascular: regular rate and rhythm Gastrointestinal: normoactive bowel sounds, soft, non-tender, non-distended (protuberant) Integumentary: normal Extremities: no cyanosis, pulses normal, no ischemia or petechiae, edema (trace) Neurologic: non-focal exam (grossly), pupils equal and round, CN II-XII normal, motor strength normal and, other (moves all extremities spontaneously) Psychiatric: other (unasble to assess) CBC and BMP: 03/20/21 04:00 03/20/21 04:00 ABG, PT/INR, D-dimer: ABG ABG pH 7.290 pH Units (7.350-7.450) L 03/18/21 21:44 POC ABG pCO2 54.5 mmHg (32.0-48.0) H 03/17/21 21:00 ABG pCO2 59.4 mm Hg 03/18/21 21:44 POC ABG pO2 62.3 mmHg (83-108) L 03/17/21 21:00 ABG pO2 119.7 mm Hg (80.0-90.0) H 03/18/21 21:44 POC ABG HCO3 26.8 03/17/21 21:00 ABG O2 Saturation 97.9 % (95.0-99.0) 03/18/21 21:44 PT/INR, D-dimer PT 13.1 Sec. (12.2-14.9) 03/13/21 13:26 INR 0.89 (0.87-1.13) 03/13/21 13:26 D-Dimer 9953.09 ng/mlDDU (0-234) H 03/18/21 04:30 Abnormal lab findings: Abnormal Labs 03/13/21 03/13/21 03/13/21 13:26 13:26 15:40 WBC RBC Hgb Hct MCH 27 L RDW 17.0 H Lymph % (Auto) [place] # (Auto) Seg Neutrophils % Seg Neutrophils # D-Dimer ABG pH POC ABG pCO2 POC ABG pO2 ABG pO2 ABG HCO3 ABG O2 Saturation ABG Base Excess ABG Hemoglobin ABG Oxyhemoglobin ABG Sodium ABG Potassium ABG Glucose Oxyhemoglobin Carboxyhemoglobin Sodium 136 L Potassium Carbon Dioxide BUN Creatinine Glucose 125 H 130 H POC Glucose Hemoglobin A1c Calcium Phosphorus Magnesium Lactate Dehydrogenase 235 H C-Reactive Protein 4.30 H Total Protein Albumin Triglycerides Arterial Blood Glucose Arterial Blood Ionized Calcium Urine Creatinine Random Vancomycin Coronavirus (PCR) 03/13/21 03/14/21 03/14/21 21:33 03:35 06:21 WBC 20.0 H RBC Hgb Hct MCH 27 L RDW 17.5 H Lymph % (Auto) 7.8 L [place] # (Auto) 1.3 H Seg Neutrophils % 85.4 H Seg Neutrophils # 17.1 H D-Dimer ABG pH 7.323 L 7.234 L POC ABG pCO2 POC ABG pO2 ABG pO2 69.8 L ABG HCO3 ABG O2 Saturation 92.9 L 94.9 L ABG Base Excess -3.3 L -5.4 L ABG Hemoglobin ABG Oxyhemoglobin ABG Sodium ABG Potassium ABG Glucose Oxyhemoglobin 91.2 L 93.2 L Carboxyhemoglobin Sodium Potassium Carbon Dioxide BUN Creatinine Glucose POC Glucose Hemoglobin A1c Calcium Phosphorus Magnesium Lactate Dehydrogenase C-Reactive Protein Total Protein Albumin Triglycerides Arterial Blood Glucose Arterial Blood Ionized Calcium Urine Creatinine Random Vancomycin Coronavirus (PCR) 03/14/21 03/14/21 03/14/21 06:21 07:47 11:21 WBC RBC Hgb Hct MCH RDW Lymph % (Auto) [place] # (Auto) Seg Neutrophils % Seg Neutrophils # D-Dimer ABG pH POC ABG pCO2 POC ABG pO2 ABG pO2 ABG HCO3 ABG O2 Saturation ABG Base Excess ABG Hemoglobin ABG Oxyhemoglobin ABG Sodium ABG Potassium ABG Glucose Oxyhemoglobin Carboxyhemoglobin Sodium 136 L 136 L Potassium 6.2 H* D 5.4 H Carbon Dioxide 21 L 21 L BUN Creatinine 1.5 H D 1.8 H Glucose 144 H 141 H POC Glucose 147 H Hemoglobin A1c Calcium Phosphorus Magnesium Lactate Dehydrogenase C-Reactive Protein Total Protein 8.7 H 9.2 H Albumin 3.8 L Triglycerides Arterial Blood Glucose Arterial Blood Ionized Calcium Urine Creatinine Random Vancomycin Coronavirus (PCR) 03/14/21 03/14/21 03/14/21 17:29 17:50 18:35 WBC RBC Hgb Hct MCH RDW Lymph % (Auto) [place] # (Auto) Seg Neutrophils % Seg Neutrophils # D-Dimer ABG pH POC ABG pCO2 POC ABG pO2 ABG pO2 ABG HCO3 ABG O2 Saturation ABG Base Excess ABG Hemoglobin ABG Oxyhemoglobin ABG Sodium ABG Potassium ABG Glucose Oxyhemoglobin Carboxyhemoglobin Sodium 135 L Potassium 6.4 H* Carbon Dioxide 15 L BUN 26 H Creatinine 3.4 H D Glucose 165 H POC Glucose 209 H Hemoglobin A1c Calcium Phosphorus Magnesium Lactate Dehydrogenase C-Reactive Protein Total Protein Albumin Triglycerides Arterial Blood Glucose Arterial Blood Ionized Calcium Urine Creatinine 40.1 H Random Vancomycin Coronavirus (PCR) 03/14/21 03/14/21 03/14/21 18:46 22:23 23:52 WBC RBC Hgb Hct MCH RDW Lymph % (Auto) [place] # (Auto) Seg Neutrophils % Seg Neutrophils # D-Dimer ABG pH 7.270 L POC ABG pCO2 POC ABG pO2 63.4 L ABG pO2 ABG HCO3 ABG O2 Saturation ABG Base Excess ABG Hemoglobin ABG Oxyhemoglobin 90.2 L ABG Sodium 134.9 L ABG Potassium 5.3 H ABG Glucose 134 H Oxyhemoglobin Carboxyhemoglobin Sodium 136 L Potassium 5.2 H Carbon Dioxide 20 L BUN 29 H Creatinine 3.6 H Glucose 236 H POC Glucose 128 H Hemoglobin A1c Calcium Phosphorus Magnesium Lactate Dehydrogenase C-Reactive Protein Total Protein Albumin 3.2 L Triglycerides Arterial Blood Glucose 134 H Arterial Blood Ionized Calcium Urine Creatinine Random Vancomycin Coronavirus (PCR) 03/14/21 03/15/21 03/15/21 Unknown 05:00 05:09 WBC 22.5 H RBC Hgb Hct MCH 27 L RDW 17.6 H Lymph % (Auto) [place] # (Auto) Seg Neutrophils % Seg Neutrophils # D-Dimer ABG pH POC ABG pCO2 POC ABG pO2 ABG pO2 ABG HCO3 ABG O2 Saturation ABG Base Excess ABG Hemoglobin ABG Oxyhemoglobin ABG Sodium ABG Potassium ABG Glucose Oxyhemoglobin Carboxyhemoglobin Sodium Potassium Carbon Dioxide BUN Creatinine Glucose POC Glucose 116 H Hemoglobin A1c Calcium Phosphorus Magnesium Lactate Dehydrogenase C-Reactive Protein Total Protein Albumin Triglycerides Arterial Blood Glucose Arterial Blood Ionized Calcium Urine Creatinine Random Vancomycin Coronavirus (PCR) Positive A 03/15/21 03/15/21 03/15/21 05:09 05:09 05:09 WBC RBC Hgb Hct MCH RDW Lymph % (Auto) [place] # (Auto) Seg Neutrophils % Seg Neutrophils # D-Dimer ABG pH POC ABG pCO2 POC ABG pO2 ABG pO2 ABG HCO3 ABG O2 Saturation ABG Base Excess ABG Hemoglobin ABG Oxyhemoglobin ABG Sodium ABG Potassium ABG Glucose Oxyhemoglobin Carboxyhemoglobin Sodium 136 L Potassium 6.5 H* D Carbon Dioxide 17 L BUN 41 H Creatinine 5.3 H Glucose 128 H POC Glucose Hemoglobin A1c 6.3 H Calcium Phosphorus Magnesium Lactate Dehydrogenase C-Reactive Protein 12.10 H Total Protein Albumin 3.1 L Triglycerides Arterial Blood Glucose Arterial Blood Ionized Calcium Urine Creatinine Random Vancomycin Coronavirus (PCR) 03/15/21 03/15/21 03/15/21 10:00 21:50 23:39 WBC RBC Hgb Hct MCH RDW Lymph % (Auto) [place] # (Auto) Seg Neutrophils % Seg Neutrophils # D-Dimer ABG pH 7.098 L POC ABG pCO2 72.7 H POC ABG pO2 ABG pO2 162.5 H ABG HCO3 ABG O2 Saturation ABG Base Excess ABG Hemoglobin 10.1 L ABG Oxyhemoglobin ABG Sodium ABG Potassium 5.7 H ABG Glucose Oxyhemoglobin Carboxyhemoglobin 0.4 L Sodium Potassium Carbon Dioxide BUN Creatinine Glucose POC Glucose 156 H Hemoglobin A1c Calcium Phosphorus Magnesium Lactate Dehydrogenase C-Reactive Protein Total Protein Albumin Triglycerides Arterial Blood Glucose Arterial Blood Ionized Calcium Urine Creatinine Random Vancomycin Coronavirus (PCR) 03/16/21 03/16/21 03/16/21 05:00 05:30 05:30 WBC 16.7 H RBC 3.59 L Hgb 9.6 L Hct 30.1 L MCH 27 L RDW 17.5 H Lymph % (Auto) [place] # (Auto) Seg Neutrophils % Seg Neutrophils # D-Dimer ABG pH POC ABG pCO2 POC ABG pO2 ABG pO2 ABG HCO3 ABG O2 Saturation ABG Base Excess ABG Hemoglobin ABG Oxyhemoglobin ABG Sodium ABG Potassium ABG Glucose Oxyhemoglobin Carboxyhemoglobin Sodium Potassium Carbon Dioxide BUN 46 H Creatinine 6.2 H Glucose 131 H POC Glucose Hemoglobin A1c Calcium Phosphorus 6.00 H D Magnesium Lactate Dehydrogenase 318 H C-Reactive Protein 18.60 H Total Protein Albumin 3.0 L Triglycerides Arterial Blood Glucose Arterial Blood Ionized Calcium Urine Creatinine Random Vancomycin Coronavirus (PCR) 03/16/21 03/16/21 03/16/21 05:51 06:37 08:58 WBC RBC Hgb Hct MCH RDW Lymph % (Auto) [place] # (Auto) Seg Neutrophils % Seg Neutrophils # D-Dimer 3041.12 H ABG pH POC ABG pCO2 POC ABG pO2 ABG pO2 141.5 H ABG HCO3 ABG O2 Saturation ABG Base Excess ABG Hemoglobin 9.7 L ABG Oxyhemoglobin ABG Sodium ABG Potassium ABG Glucose Oxyhemoglobin Carboxyhemoglobin Sodium Potassium Carbon Dioxide BUN Creatinine Glucose POC Glucose 126 H Hemoglobin A1c Calcium Phosphorus Magnesium Lactate Dehydrogenase C-Reactive Protein Total Protein Albumin Triglycerides Arterial Blood Glucose Arterial Blood Ionized Calcium Urine Creatinine Random Vancomycin Coronavirus (PCR) 03/16/21 03/16/21 03/16/21 12:11 16:51 21:00 WBC RBC Hgb Hct MCH RDW Lymph % (Auto) [place] # (Auto) Seg Neutrophils % Seg Neutrophils # D-Dimer ABG pH 7.239 L POC ABG pCO2 61.5 H POC ABG pO2 80.8 L ABG pO2 ABG HCO3 ABG O2 Saturation ABG Base Excess ABG Hemoglobin 11.4 L ABG Oxyhemoglobin 93.5 L ABG Sodium ABG Potassium 5.4 H ABG Glucose 137 H Oxyhemoglobin Carboxyhemoglobin 0.2 L Sodium Potassium Carbon Dioxide BUN Creatinine Glucose POC Glucose 156 H 133 H Hemoglobin A1c Calcium Phosphorus Magnesium Lactate Dehydrogenase C-Reactive Protein Total Protein Albumin Triglycerides Arterial Blood Glucose 137 H Arterial Blood Ionized Calcium Urine Creatinine Random Vancomycin Coronavirus (PCR) 03/16/21 03/17/21 03/17/21 23:42 05:23 05:23 WBC 18.4 H RBC Hgb Hct MCH 27 L RDW 17.4 H Lymph % (Auto) [place] # (Auto) Seg Neutrophils % Seg Neutrophils # D-Dimer ABG pH POC ABG pCO2 POC ABG pO2 ABG pO2 ABG HCO3 ABG O2 Saturation ABG Base Excess ABG Hemoglobin ABG Oxyhemoglobin ABG Sodium ABG Potassium ABG Glucose Oxyhemoglobin Carboxyhemoglobin Sodium Potassium 5.2 H Carbon Dioxide 21 L BUN 79 H Creatinine 8.6 H Glucose 124 H POC Glucose 133 H Hemoglobin A1c Calcium Phosphorus Magnesium Lactate Dehydrogenase C-Reactive Protein Total Protein Albumin 3.2 L Triglycerides 285 H Arterial Blood Glucose Arterial Blood Ionized Calcium Urine Creatinine Random Vancomycin Coronavirus (PCR) 03/17/21 03/17/21 03/17/21 05:23 10:48 12:20 WBC RBC Hgb Hct MCH RDW Lymph % (Auto) [place] # (Auto) Seg Neutrophils % Seg Neutrophils # D-Dimer ABG pH 7.294 L POC ABG pCO2 POC ABG pO2 ABG pO2 90.3 H ABG HCO3 ABG O2 Saturation ABG Base Excess ABG Hemoglobin 9.9 L ABG Oxyhemoglobin ABG Sodium ABG Potassium ABG Glucose Oxyhemoglobin Carboxyhemoglobin Sodium Potassium 5.2 H Carbon Dioxide 21 L BUN 79 H Creatinine 8.4 H Glucose 125 H POC Glucose 171 H Hemoglobin A1c Calcium Phosphorus 9.90 H D Magnesium 2.40 H Lactate Dehydrogenase C-Reactive Protein Total Protein Albumin Triglycerides Arterial Blood Glucose Arterial Blood Ionized Calcium Urine Creatinine Random Vancomycin Coronavirus (PCR) 03/17/21 03/17/21 03/18/21 17:24 21:00 04:30 WBC RBC Hgb Hct MCH RDW Lymph % (Auto) [place] # (Auto) Seg Neutrophils % Seg Neutrophils # D-Dimer 9953.09 H ABG pH 7.310 L POC ABG pCO2 54.5 H POC ABG pO2 62.3 L ABG pO2 ABG HCO3 ABG O2 Saturation ABG Base Excess ABG Hemoglobin 10.2 L ABG Oxyhemoglobin 88.6 L ABG Sodium ABG Potassium 4.7 H ABG Glucose 99 H Oxyhemoglobin Carboxyhemoglobin 0.3 L Sodium Potassium Carbon Dioxide BUN Creatinine Glucose POC Glucose 121 H Hemoglobin A1c Calcium Phosphorus Magnesium Lactate Dehydrogenase C-Reactive Protein Total Protein Albumin Triglycerides Arterial Blood Glucose 99 H Arterial Blood Ionized Calcium 4.3 L Urine Creatinine Random Vancomycin Coronavirus (PCR) 03/18/21 03/18/21 03/18/21 04:30 04:30 11:34 WBC 12.8 H RBC 3.49 L Hgb 9.4 L Hct 29.3 L MCH 27 L RDW 17.4 H Lymph % (Auto) [place] # (Auto) Seg Neutrophils % Seg Neutrophils # D-Dimer ABG pH POC ABG pCO2 POC ABG pO2 ABG pO2 ABG HCO3 ABG O2 Saturation ABG Base Excess ABG Hemoglobin ABG Oxyhemoglobin ABG Sodium ABG Potassium ABG Glucose Oxyhemoglobin Carboxyhemoglobin Sodium Potassium Carbon Dioxide BUN 69 H Creatinine 7.3 H Glucose POC Glucose 114 H Hemoglobin A1c Calcium 8.2 L Phosphorus 7.60 H D Magnesium Lactate Dehydrogenase 477 H C-Reactive Protein 6.90 H Total Protein Albumin Triglycerides Arterial Blood Glucose Arterial Blood Ionized Calcium Urine Creatinine Random Vancomycin Coronavirus (PCR) 03/18/21 03/19/21 03/19/21 21:44 04:13 04:13 WBC 13.7 H RBC 3.32 L Hgb 9.0 L Hct 28.1 L MCH 27 L RDW 16.9 H Lymph % (Auto) [place] # (Auto) Seg Neutrophils % Seg Neutrophils # D-Dimer ABG pH 7.290 L POC ABG pCO2 POC ABG pO2 ABG pO2 119.7 H ABG HCO3 28.0 H ABG O2 Saturation ABG Base Excess ABG Hemoglobin 9.6 L ABG Oxyhemoglobin ABG Sodium ABG Potassium ABG Glucose Oxyhemoglobin Carboxyhemoglobin Sodium Potassium Carbon Dioxide BUN Creatinine Glucose POC Glucose Hemoglobin A1c Calcium Phosphorus Magnesium Lactate Dehydrogenase C-Reactive Protein Total Protein Albumin Triglycerides Arterial Blood Glucose Arterial Blood Ionized Calcium Urine Creatinine Random Vancomycin 43.5 H Coronavirus (PCR) 03/19/21 03/19/21 03/19/21 04:13 05:59 11:40 WBC RBC Hgb Hct MCH RDW Lymph % (Auto) [place] # (Auto) Seg Neutrophils % Seg Neutrophils # D-Dimer ABG pH POC ABG pCO2 POC ABG pO2 ABG pO2 ABG HCO3 ABG O2 Saturation ABG Base Excess ABG Hemoglobin ABG Oxyhemoglobin ABG Sodium ABG Potassium ABG Glucose Oxyhemoglobin Carboxyhemoglobin Sodium Potassium Carbon Dioxide BUN 55 H Creatinine 7.0 H Glucose POC Glucose 116 H 145 H Hemoglobin A1c Calcium 8.1 L Phosphorus 7.90 H Magnesium Lactate Dehydrogenase C-Reactive Protein Total Protein Albumin Triglycerides Arterial Blood Glucose Arterial Blood Ionized Calcium Urine Creatinine Random Vancomycin Coronavirus (PCR) Chest x-ray: other (none today) Allied health notes reviewed: nursing
--- NOTE | 2021-03-19 14:45 | Progress Note ---
Assessment and Plan Cultures: SARS CoV2 PCR: Positive 03/13/2021 blood culture: No growth Rest cultures: Staph aureus A/P: 31-year-old female with asthma, morbid obesity, Crohn's disease admitted with cough and shortness of breath: #Bilateral pneumonia: Secondary to COVID-19. Severe disease. CRP has worsened to 12.1. Procalcitonin 0.05. #Acute hypoxic respiratory failure: Requiring BiPAP. #Acute renal failure: Renally adjust antibiotics. Nephrology on board, planning dialysis #Acute asthma exacerbation #Morbid obesity Recs: -IV/PO Dexamethasone x 10 days -Not a candidate for remdesivir due to renal failure -Actemra given 03/15/2021 per pharmacy notes. -prophylactic anticoagulation based on d-dimer per hospital protocol -Stop vanco, start cefazolin 2g q24h -trend d-dimer, CRP every 2-3 days -poor prognosis Champ Ling MD [facility] ([facility]) O: [phone] F: [phone] Subjective Date of service: 03/19/21 Principal diagnosis: Ac hypoxemic resp failure; AE-Asthma; SAI; Crohn's; COVID- 19; Pneumonia Interval history: Afebrile, white count stable elevated. Objective - Exam Narrative Exam: Physical exam deferred to reduce risk of transmission of COVID-19. Please refer to primary team's note. - Constitutional Vitals: Vital Signs Temp Pulse Resp BP Pulse Ox 99.7 F H 101 H 35 H 119/84 97 03/19/21 12:02 03/19/21 14:30 03/19/21 10:45 03/19/21 14:30 03/19/21 12:32 Temperature -Last 24 Hours Temperature 99.7 F Temperature 99.2 F Temperature 99.1 F Temperature 99.2 F Temperature 99.2 F Temperature 98.7 F Temperature 99.9 F - Labs CBC & Chem 7: 03/19/21 04:13 03/19/21 04:13 Labs: Abnormal lab results 03/18/21 03/19/21 03/19/21 Range/Units 21:44 04:13 04:13 WBC 13.7 H (4.5-11.0) K/mm3 RBC 3.32 L (3.65-5.03) M/mm3 Hgb 9.0 L (10.1-14.3) gm/dl Hct 28.1 L (30.3-42.9) % MCH 27 L (28-32) pg RDW 16.9 H (13.2-15.2) % ABG pH 7.290 L (7.350-7.450) pH Units ABG pO2 119.7 H (80.0-90.0) mm Hg ABG HCO3 28.0 H (20.0-26.0) mmol/L ABG Hemoglobin 9.6 L (12.0-16.0) gm/dl BUN (7-17) mg/dL Creatinine (0.6-1.2) mg/dL POC Glucose (70-105) mg/dL Calcium (8.4-10.2) mg/dL Phosphorus (2.5-4.5) mg/dL Random Vancomycin 43.5 H (0-40.0) ug/mL 03/19/21 03/19/21 03/19/21 Range/Units 04:13 05:59 11:40 WBC (4.5-11.0) K/mm3 RBC (3.65-5.03) M/mm3 Hgb (10.1-14.3) gm/dl Hct (30.3-42.9) % MCH (28-32) pg RDW (13.2-15.2) % ABG pH (7.350-7.450) pH Units ABG pO2 (80.0-90.0) mm Hg ABG HCO3 (20.0-26.0) mmol/L ABG Hemoglobin (12.0-16.0) gm/dl BUN 55 H (7-17) mg/dL Creatinine 7.0 H (0.6-1.2) mg/dL POC Glucose 116 H 145 H (70-105) mg/dL Calcium 8.1 L (8.4-10.2) mg/dL Phosphorus 7.90 H (2.5-4.5) mg/dL Random Vancomycin (0-40.0) ug/mL
[2021-03-19] MEDS: dexAMETHasone 4 MG/ML VIAL IV SCH (16:03)
[2021-03-19] MEDS: ZINC SULFATE 220 MG CAP PO SCH ×2 (16:04→21:59)
--- NOTE | 2021-03-19 17:21 | Progress Note ---
Assessment and Plan Assessment and plan: This is a 31-year-old female with asthma, morbid obesity and Crohn's disease admitted for COVID-19 pneumonia and and acute renal failure Neuro: Sedated -Intubated and sedated on propofol and fentanyl -RASS goal 0 to -1 -Daily SAT/SBT when appropriate -Maintain sleep-wake cycle -Avoid delirium -Bilateral wrist restraints in place for safety CV: Tachycardia, hypertension -ST on the monitor -As needed antihypertensive for SBP greater than 160 -Maintain MAP above 65 -Blood pressure monitoring per protocol Respiratory: Acute hypoxic respiratory failure, asthma exacerbation, COVID-19 pneumonia -DuoNeb, steroids -Patient was intubated on 03/14 for respiratory distress and inability to protect airway -Intubated with 7.50 ETT at 24 at the lip -A.m. vent settings: ac rate 20, tv 500, FiO2 80%, peep 10 -See RT notes for titration -CCM is allowing for permissive hypercapnia -ABGs per [facility] -03/18 CXR noted -VAP bundle -SPO2 monitoring -CCM/pulmonary consulted, appreciate recommendations -S/p BiPAP therapy GI: h/o MO and Crohn's disease -Nutrition consulted, appreciate recommendations -Tube feeding -changed to Nepro -Free water 100 mL every 4 hours -BR: Senokot -PPI -24 hours +1517 -Reglan for increased TF residuals -RN to restart TF this evening; turned off d/t high residuals : Acute kidney injury likely secondary to ATN, hyperphosphatemia -Nephrology consulted, appreciate recommendations -Vas-Cath placed 03/15 -HD initiated 03/15 -Daily weights -Strict intake and output -Avoid nephrotoxic medications -Renally dose medications -Trend BMP -Intervene for electrolytes as needed -Daily HD for now per nephrology ID: COVID-19 pneumonia, leukocytosis, Staph aureus in tracheal aspirate -Infectious disease consulted, appreciate recommendations -COVID-19 PCR positive -IV methylprednisone -Ordered Actemra per ID -Per ID patient is on a candidate for remdesivir due to renal failure -Patient received 1 dose of remdesivir on 03/14 -Prophylactic anticoagulation based on D-dimer -Azithromycin and ceftriaxone discontinued -Started on vancomycin, PKS to dose -Trend COVID-19 inflammatory markers -Isolation/droplet precautions -Vitamin C/vitamin D/zinc -03/13 BC x2 no growth to date -03/14 tracheal aspirate with Staph aureus (ID aware) -Monitor WBC and fever curve Heme: Leukocytosis, elevated D-dimer -Trend CBC -Transfuse hemoglobin less than 7 -Prophylactic heparin -SCDs to bilateral lower extremity while in bed Endo: Possible some degree of insulin resistance -Hemoglobin A1c 6.3 -SSI -Accu-Cheks every 6 -Avoid hypoglycemia -Target blood glucose while critically ill 140-180 The high probability of a clinically significant, sudden or life threatening deterioration of the [multiple] system(s) required my full and direct attention, intervention and personal management. The aggregate critical care time was [90] minutes. This time is in addition to time spent performing reported procedures but includes the following: [x] Data Review and interpretation [x] Patient assessment and monitoring of vital signs [x] Documentation [x] Medication orders and management Disposition Plan: icu Total Time Spent with Patient (Minutes): 90 History Interval history: This is a 31-year-old female with asthma, history of prior intubation x1 in 02/2019, morbid obesity and Crohn's disease who presented to the emergency department on 03/13 with complaints of severe wheezing and shortness of breath over the past 4 days which is not relieved by home nebulizer treatments or rescue inhalers, cough without fever and no loss of sense of taste or smell. Patient is currently on vaccinated for COVID-19. In the emergency department patient was placed on BiPAP given steroids magnesium Solu-Medrol with improvement, CXR shows a streak of possible pneumonia. Patient was made a COVID-19 PUI and admitted to the hospital service. Patient was initially admitted to [facility] on BiPAP and was subsequently intubated due to severe respiratory distress and inability to protect her airway. Patient was admitted with acute hypoxic respiratory failure, acute asthma exacerbation, right upper lobe pneumonia, and as a COVID-19 PUI. Hospital Course to Date: 03/14/21- Patient is s/p intubation from this morning, sedated on propofol and fentanyl RASS -3 to -4. ETT above the clavicles advanced by 2cc. Continue nebs and IV steroids per CCM. COVID swab pending. Hyperkalemia improved, X1 dose of kayaxalate ordered. Low BP and low urine output this am, fluid bolus challenge, 500cc of NS bolus given. Continue to monitor electrolytes and renal function, repeat BMP this afternoon. 03/15: Patient's renal function noted to be significantly worse today, patient was hyperkalemic and this was medically treated. Patient initiated on hemodialysis today. Patient disease was consulted today. 03/16: No acute events reported overnight, patient received hemodialysis yesterday. Patient is currently on propofol and fentanyl. 03/17: Patient received hemodialysis today, patient is slightly acidotic on ABG however CCM is allowing for permissive hypercapnia, tracheal aspirate with Staph aureus and ID is aware. 03/18: Patient is having high residuals today and Reglan was started, patient will receive HD daily per nephrology, correct her change in FiO2 as tolerated. 03/19: HD per nephrology today, antibiotics changed to cefazolin. Patient did not tolerate tube feedings as she had high residuals this morning and they were turned off. Not restarted yet. Updated family at bedside today Hospitalist Physical - Constitutional Vitals: Temp Pulse Resp BP Pulse Ox 98.1 F 109 H 20 152/75 96 03/19/21 17:14 03/19/21 16:10 03/19/21 16:10 03/19/21 16:00 03/19/21 16:00 General appearance: Present: no acute distress, well-nourished, obese, other (Intubated and sedated) - EENT Eyes: Present: PERRL, EOM intact ENT: hearing intact, clear oral mucosa - Neck Neck: Present: normal ROM - Respiratory Respiratory effort: normal Respiratory: bilateral: diminished - Cardiovascular Rhythm: regular Heart Sounds: Present: S1 & S2. Absent: systolic murmur, diastolic murmur - Extremities Extremities: no ischemia, pulses intact, pulses symmetrical, No edema, normal temperature, normal color Peripheral Pulses: within normal limits - Abdominal General gastrointestinal: soft, non-tender, non-distended, normal bowel sounds - Integumentary Integumentary: Present: warm, dry - Psychiatric Psychiatric: cooperative - Neurologic Neurologic: moves all extremities - Allied Health Allied health notes reviewed: nursing, RT, social work Results - Labs CBC & Chem 7: 03/19/21 04:13 03/19/21 04:13 Labs: Laboratory Last Values WBC 13.7 K/mm3 (4.5-11.0) H 03/19/21 04:13 RBC 3.32 M/mm3 (3.65-5.03) L 03/19/21 04:13 Hgb 9.0 gm/dl (10.1-14.3) L 03/19/21 04:13 Hct 28.1 % (30.3-42.9) L 03/19/21 04:13 MCV 85 fl (79-97) 03/19/21 04:13 MCH 27 pg (28-32) L 03/19/21 04:13 MCHC 32 % (30-34) 03/19/21 04:13 RDW 16.9 % (13.2-15.2) H 03/19/21 04:13 Plt Count 144 K/mm3 (140-440) 03/19/21 04:13 Lymph % (Auto) 7.8 % (13.4-35.0) L 03/14/21 06:21 Arroyo % (Auto) 6.7 % (0.0-7.3) 03/14/21 06:21 Eos % (Auto) 0.0 % (0.0-4.3) 03/14/21 06:21 Baso % (Auto) 0.1 % (0.0-1.8) 03/14/21 06:21 Lymph # (Auto) 1.6 K/mm3 (1.2-5.4) 03/14/21 06:21 Arroyo # (Auto) 1.3 K/mm3 (0.0-0.8) H 03/14/21 06:21 Eos # (Auto) 0.0 K/mm3 (0.0-0.4) 03/14/21 06:21 Baso # (Auto) 0.0 K/mm3 (0.0-0.1) 03/14/21 06:21 Seg Neutrophils % 85.4 % (40.0-70.0) H 03/14/21 06:21 Seg Neutrophils # 17.1 K/mm3 (1.8-7.7) H 03/14/21 06:21 PT 13.1 Sec. (12.2-14.9) 03/13/21 13:26 INR 0.89 (0.87-1.13) 03/13/21 13:26 D-Dimer 9953.09 ng/mlDDU (0-234) H 03/18/21 04:30 ABG pH 7.290 pH Units (7.350-7.450) L 03/18/21:44 POC ABG pCO2 54.5 mmHg (32.0-48.0) H 03/17/21 21:00 ABG pCO2 59.4 mm Hg 03/18/21:44 POC ABG pO2 62.3 mmHg (83-108) L 03/17/21 21:00 ABG pO2 119.7 mm Hg (80.0-90.0) H 03/18/21:44 POC ABG HCO3 26.8 03/17/21 21:00 ABG HCO3 28.0 mmol/L (20.0-26.0) H 03/18/21:44 ABG O2 Saturation 97.9 % (95.0-99.0) 03/18/21: ABG O2 Content 13.2 (0.0-44) 03/18/21:44 POC ABG Base Excess 0 03/17/21 21: ABG Base Excess 0.7 mmol/L (-2.0-3.0) 03/18/21:44 ABG Hemoglobin 9.6 gm/dl (12.0-16.0) L 03/18/21:44 ABG Oxyhemoglobin 88.6 (94-98) L 03/17/21 21:00 ABG Carboxyhemoglobin 1.2 % (0.0-5.0) 03/18/21: ABG Methemoglobin 0.5 % (0.0-1.5) 03/18/21: ABG Sodium 138.1 mmol/L (136.0-145.0) 03/17/21 21:00 ABG Potassium 4.7 mmol/L (3.40-4.50) H 03/17/21 21:00 ABG Chloride 104.0 mmol/L (98-107) 03/17/21 21:00 ABG Glucose 99 mg/dL (65-95) H 03/17/21 21:00 Oxyhemoglobin 96.3 % (95.0-99.0) 03/18/21: Carboxyhemoglobin 0.3 (0.5-1.5) L 03/17/21 21:00 FiO2 90 % 03/18/21:44 FiO2 % 60.0 03/17/21 21:00 Sodium 143 mmol/L (137-145) 03/19/21 04:13 Potassium 4.6 mmol/L (3.6-5.0) 03/19/21 04:13 Chloride 103.1 mmol/L (98-107) 03/19/21 04:13 Carbon Dioxide 26 mmol/L (22-30) 03/19/21 04:13 Anion Gap 19 mmol/L 03/19/21 04:13 BUN 55 mg/dL (7-17) H 03/19/21 04:13 Creatinine 7.0 mg/dL (0.6-1.2) H 03/19/21 04:13 Estimated GFR 8 ml/min 03/19/21 04:13 BUN/Creatinine Ratio 8 % 03/19/21 04:13 Glucose 97 mg/dL (65-100) 03/19/21 04:13 POC Glucose 111 mg/dL (70-105) H 03/19/21 17:01 Hemoglobin A1c 6.3 % (4-6) H 03/15/21 05:09 Lactic Acid 2.00 mmol/L (0.7-2.0) 03/14/21 18:47 Calcium 8.1 mg/dL (8.4-10.2) L 03/19/21 04:13 Phosphorus 7.90 mg/dL (2.5-4.5) H 03/19/21 04:13 Magnesium 2.10 mg/dL (1.7-2.3) 03/19/21 04:13 Ferritin 151.6 ng/mL (10.0-200.0) 03/18/21 04:30 Total Bilirubin 0.20 mg/dL (0.1-1.2) 03/17/21 05:23 AST 35 units/L (5-40) 03/17/21 05:23 ALT 24 units/L (7-56) 03/17/21 05:23 Alkaline Phosphatase 78 units/L (35-129) 03/17/21 05:23 Lactate Dehydrogenase 477 units/L (91-180) H 03/18/21 04:30 C-Reactive Protein 6.90 mg/dL (0.00-1.30) H 03/18/21 04:30 Total Protein 6.7 g/dL (6.3-8.2) 03/17/21 05:23 Albumin 3.2 g/dL (3.9-5) L 03/17/21 05:23 Albumin/Globulin Ratio 0.9 % 03/17/21 05:23 Triglycerides 285 mg/dL (2-149) H 03/17/21 05:23 Procalcitonin < 0.05 ng/mL (<0.15) 03/13/21 15:40 HCG, Qual Negative (Negative) 03/13/21 13:26 Arterial Blood Glucose 99 mg/dL (65-95) H 03/17/21 21:00 Arterial Blood Ionized Calcium 4.3 mg/dL (4.6-5.3) L 03/17/21 21:00 Urine Creatinine 40.1 mg/dL (0.1-20.0) H 03/14/21 17:50 Urine Sodium 124 mmol/L 03/14/21 17:50 Random Vancomycin 43.5 ug/mL (0-40.0) H 03/19/21 04:13 Coronavirus (PCR) Positive (Negative) A 03/14/21 Unknown Hepatitis A IgM Ab Non-reactive (NonReactive) 03/15/21 05:09 Hep Bs Antigen Nonreactive (Negative) 03/15/21 05:09 Hep B Core IgM Ab Non-reactive (NonReactive) 03/15/21 05:09 Hepatitis C Antibody Non-reactive (NonReactive) 03/15/21 05:09 Microbiology: Microbiology 03/14/21 01:25 Tracheal Aspirate Sputum Culture - Preliminary Staphylococcus Aureus 03/13/21 15:40 Peripheral/Venous Blood Culture - Final NO GROWTH AFTER 5 DAYS 03/13/21 15:40 Peripheral/Venous Blood Culture - Final NO GROWTH AFTER 5 DAYS Bazan/IV: Voiding Method Indwelling Catheter Active Medications - Current Medications Current Medications: Generic Name Dose Route Start Last Admin Trade Name Freq PRN Reason Stop Dose Admin Acetaminophen 650 mg 03/13/21 19:30 Acetaminophen 325 Mg Tab PO Q4H PRN Pain MILD(1-3)/Fever >100.5/SALAS Acetylcysteine 200 mg 03/19/21 14:00 Acetylcysteine 20% 200 Mg/1 Ml *For Inhalation Use* INHALATION Q6HRT INESSA Albuterol 2.5 mg 03/19/21 00:53 Albuterol 2.5 Mg/3 Ml Nebu IH Q4HRT PRN Shortness Of Breath Albuterol/Ipratropium 1 ampul 03/19/21 08:00 03/19/21 16:08 Ipratropium/Albuterol Sulfate 3 Ml Ampul.Neb IH 1 ampul Q6HRT INESSA Administration Lipase/Protease/Amylase 1 each 03/15/21 11:42 Lipase 10,500/Protease 25,000/Amylase 43,750 (Units) Dr Cap FEEDTUBE PRN PRN For Clogged Feeding Tube Ascorbic Acid 500 mg 03/14/21 22:00 03/19/21 10:00 Ascorbic Acid 500 Mg Tab PO 500 mg BID INESSA Administration Dexamethasone 6 mg 03/16/21 10:00 03/19/21 16:03 Dexamethasone 4 Mg/Ml Vial IV 03/23/21 10:01 6 mg Q24H INESSA Administration Dextrose 50 ml 03/14/21 11:02 03/15/21 11:40 Dextrose 50% In Water (25gm) 50 Ml Syringe IV 50 ml Q30MIN PRN Administration Hypoglycemia Protocol Famotidine 10 mg 03/17/21 22:00 03/19/21 10:00 Famotidine 10 Mg Tab PO 10 mg BID INESSA Administration Fentanyl 50 mcg 03/15/21 10:43 Fentanyl 100 Mcg/2 Ml Inj IV Q10MIN PRN ANALGESIA Heparin Sodium (Porcine) 7,500 unit 03/18/21 10:00 03/19/21 10:00 Heparin 5,000 Unit/1 Ml Vial SUB-Q 7,500 unit Q12HR INESSA Administration Hydralazine HCl 10 mg 03/15/21 10:10 03/15/21 10:32 Hydralazine 20 Mg/1 Ml Inj IV 10 mg Q4HR PRN Administration Hypertension Hydrophilic Ointment 1 applic 03/14/21 17:50 Lip Therapy Vaseline TP Q2HR PRN Dry Lips Propofol 1,000 mg in 100 mls @ 4.123 mls/hr 03/15/21 11:00 03/19/21 16:03 Diprivan 10 Mg/Ml IV 20 mcg/kg/min TITR INESSA 16.493 mls/hr Administration Protocol 5 MCG/KG/MIN Fentanyl Citrate 2,000 mcg in 100 mls @ 6.872 mls/hr 03/15/21 11:00 03/19/21 16:03 Fentanyl Drip Premix IV 4 mcg/kg/hr TITR INESSA 27.488 mls/hr Administration Protocol 1 MCG/KG/HR Sodium Chloride 500 mls @ 1 mls/hr 03/16/21 17:19 Nacl 0.9% 500 Ml IV DIRECT PRN ARTERIAL LINE FLUSH Sodium Chloride 100 mls @ 999 mls/hr 03/19/21 08:30 Nacl 0.9% IV KARLOS PRN Hypotension Cefazolin Sodium 1 gm in 50 mls @ 100 mls/hr 03/19/21 16:00 Ancef/Ns 1 Gm/50 Ml IV Q24H [facility] Protocol Insulin Human Lispro 0 unit 03/14/21 12:00 03/19/21 16:08 Insulin Lispro 100 Unit/Ml SUB-Q Not Given Q6HR [facility] Protocol Lorazepam 1 mg 03/13/21 19:40 03/18/21 14:11 Lorazepam 2 Mg/Ml Vial IV 1 mg Q4H PRN Administration Anxiety Metoclopramide HCl 10 mg 03/19/21 13:00 Metoclopramide 10 Mg/2 Ml Inj IV Q8H [facility] Multi-Ingred Cream/Lotion/Oil/Oint 1 applic 03/14/21 17:50 Mineral Oil/Petrolatum, White Ophth Oint 3.5 Gm OU Q4HR PRN Dry Eye(s) Ondansetron HCl 4 mg 03/13/21 19:30 03/13/21 22:29 Ondansetron 4 Mg/2 Ml Inj IV 4 mg Q8H PRN Administration Nausea And Vomiting Senna/Docusate Sodium 1 tab 03/14/21 22:00 03/19/21 10:00 Sennosides/Docusate Sodium 8.6/50 Mg Tab FEEDTUBE 1 tab BID INESSA Administration Simple Syrup 15 ml 03/15/21 11:42 Simple Syrup 15 Ml FEEDTUBE PRN PRN Hypoglycemia Simple Syrup 30 ml 03/15/21 11:42 Simple Syrup 15 Ml FEEDTUBE PRN PRN Hypoglycemia Sodium Bicarbonate 325 mg 03/15/21 11:42 Sodium Bicarbonate 325 Mg Tab FEEDTUBE PRN PRN For Clogged Feeding Tube Sodium Chloride 10 ml 03/13/21 22:00 03/19/21 10:30 Sodium Chloride 0.9% 10 Ml Flush Syringe IV 10 ml BID INESSA Administration Sodium Chloride 10 ml 10/30/21 19:30 Sodium Chloride 0.9% 10 Ml Flush Syringe IV PRN PRN LINE FLUSH Zinc Sulfate 220 mg 03/14/21 22:00 03/19/21 16:04 Zinc Sulfate 220 Mg Cap PO 220 mg BID INESSA Administration Nutrition/Malnutrition Assess - Dietary Evaluation Nutrition/Malnutrition Findings: Nutrition Notes Start: 03/15/21 11:06 Freq: Status: Active Protocol: Document 03/19/21 16:31 GB (Rec: 03/19/21 16:37 GB [id number]) Nutrition Notes Initial or Follow up Reassessment Current Diagnosis Respiratory Failure Other Pertinent Diagnosis SOB. PMHx: asthma, morbid obesity, crohn's disease Current Diet No diet order: should be NPO - Tube Feeding Labs/Tests 03/19: BUN 55, creatinine 8.1, Ca 8.1, P 7.9 A1c 6.3 Pertinent Medications Vit C, D5(PRN), Fentanyl Citrate, Propofol 16.493ml/hr (435kcal), Zn Sulfate Height 5 ft 5 in Weight 137.438 kg [place] Body Weight (kg) 56.81 BMI 50.4 Weight change and time frame No new weights recorded at time of assessment Weight Status Morbidly Obese Subjective/Other Information Pt is intubated/sedated - continues BM: 03/18 MD note 03/19: okay to restart TF at 10ml advance 10ml/8hr as tolerated to goal. RN note: vomited 03/18 TF held for aspiration check. TF currently at 20ml/hr advancing as tolerated. Percent of energy/protein needs met: TF at goal will meet 75% or greater of minimal EEN Burn Absent Trauma Absent GI Symptoms Vomiting Difficulty In Swallowing Food Allergy No Skin Integrity/Comment No complications reported Current % PO Other Minimum of two criteria No #1 Nutrition Diagnosis Swallowing difficulty Comments: 03/17: intubation/sedation/TF continues 03/19: intubation/sedation/TF continues Etiology SOB, respiratory failure As Evidenced by Signs and Symptoms intubated/sedated (03/14) Diagnosis Progress(for reassessment Continues documentation) Is patient on ventilator? Yes Is Patient Ambulatory and/or Out of Bed No REE-([facility]-confined to bed) 2515.536 Kcal/Kg value to use for calculation 15 Approximate Energy Requirements Using 2061 kcal/Kg Calculation Used for Recommendations Kcal/kg Additional Notes Protein 0.6g/kg or greater @ 137g or greater Fluids: 1ml/kcal or per MD Nutrition Intervention Change Diet Order: NPO Nutrition Support: 03/19: Nepro @ 44ml/hr (held r/ t vomiting: restarted at 10ml/ hr advancing to goal) Flush: 155ml/4hr Total free H2O/day: TF@goal + flush = 1700ml Kcal 1,900 Protein (gm) 86 Carbohydrates (gm) 170 Fat (gm) 101 Fluid (mL) 767 Fiber (gm) 13 Goal #1 TF started and tolerated by f/ u 03/17 met, changing to nepro 03/19: nepro, post vomiting event, TF restarted @10ml advancing as tolerated. Goal #2 TF at goal by f/u 03/19: restarted at 10ml/hr advancing to goal. Currently at 20ml/hr. Follow-Up By: 03/23/21 Additional Comments f/u: TF tolerance, vent status
[2021-03-19] MEDS: ceFAZolin/NS 1 GM/50 ML 1 GM/50 ML BAG IV SCH (19:03)
[2021-03-20] MEDS: IPRATROPIUM/ALBUTEROL SULFATE 3 ML AMPUL.NEB IH SCH ×4 (04:43→19:18)
[2021-03-20 04:53] LABS: Hematocrit 30.3 % (30.3-42.9); Hemoglobin 9.6 gm/dl (10.1-14.3); Mean Corpuscular HGB Conc 32 % (30-34); Mean Corpuscular Volume 85 fl (79-97); Platelet Count 139 K/mm3 (140-440); Red Blood Count 3.55 M/mm3 (3.65-5.03); Red Cell Distribution Width 16.8 % (13.2-15.2)
[2021-03-20] MEDS: fentaNYL DRIP Premix 2,000 MCG/100 ML BAG IV SCH ×4 (04:55→19:26)
[2021-03-20 04:56] LABS: C-Reactive Protein 6.9 mg/dL (0.00-1.30); Calcium 8.5 mg/dL (8.4-10.2)
[2021-03-20 05:03] LABS: ABG Base Excess 1.6 mmol/L (-2.0-3.0); ABG HCO3 27.9 mmol/L (20.0-26.0); ABG Methemoglobin 0.5 % (0.0-1.5); ABG PCO2 57.2 mm Hg; ABG PH 7.306 pH Units (7.350-7.450); ABG PO2 87.3 mm Hg (80.0-90.0)
--- NOTE | 2021-03-20 07:53 | Progress Note ---
Subjective Principal diagnosis: Ac hypoxemic resp failure; AE-Asthma; SAI; Crohn's; COVID- 19; Pneumonia Interval history: Patient was seen today for follow-up of multiple renal related issues Patient remains critically ill intubated dialysis dependent ICU data was reviewed Interdisciplinary notes were also reviewed Events of 24 hours vitals labs intake output medications were reviewed Past medical history: Reviewed Family history: Reviewed Social history: Reviewed Allergies: Reviewed Physical examination: Vitals: Reviewed HEENT: intubated Neck: Supple no JVD no thyromegaly Chest: Bilateral coarse with wheezes Heart: Regular rate and rhythm S1-S2 heard no S3-S4 Abdomen: Soft nontender no voluntary guarding rigidity rebound Extremity: Dry skin less than 1+ peripheral edema Psychiatric: No evidence of agitation and aggression noted Dermatology: No petechial rashes Labs and x-rays: Reviewed from today Assessment and plan #Acute kidney injury, resulting from acute tubal necrosis from severe hypoxemia respiratory failure with underlying Covid 19 infection, Patient does have multiple risk factors for underlying chronic kidney disease, her BMI is also 50.4. Currently initiated on renal placement therapy #Mild hyperkalemia to monitor and follow dialysis prescription will need to be changed If needed will do a postdialysis BUN to assess the adequacy of the dialysis access #Anemia in renal failure, patient will be on erythropoietin minimize phlebotomies as much as possible Continue to dialyze the patient for now #Acidosis appears to be improving needs ongoing monitoring and close follow-up #Hyperphosphatemia has been slowly improving #Respiratory failure with Covid 19 infection, currently intubated blood gases appears to be improving #Overall very ill, critical care time spent in ICU 32 minutes, Review dialysis prescription reviewed all the ICU data, #Prognosis remains guarded at this time due to multiple complex comorbidities We'll continue to follow and make recommendation for renal standpoint Objective - Vital Signs Vital signs: Vital Signs - 12hr 03/19/21 03/19/21 03/19/21 20:00 20:01 20:15 Temperature Pulse Rate 107 H 105 H Respiratory 20 18 19 Rate Blood Pressure 104/50 103/59 O2 Sat by Pulse 93 95 95 Oximetry 03/19/21 03/19/21 03/19/21 20:30 20:45 21:00 Temperature Pulse Rate 107 H 106 H 106 H Respiratory 20 20 20 Rate Blood Pressure 119/65 108/60 100/52 O2 Sat by Pulse 97 96 95 Oximetry 03/19/21 03/19/21 03/19/21 21:15 21:30 21:45 Temperature Pulse Rate 106 H 105 H 103 H Respiratory 24 22 16 Rate Blood Pressure 104/57 100/64 110/60 O2 Sat by Pulse 96 97 97 Oximetry 03/19/21 03/19/21 03/19/21 22:00 22:15 22:30 Temperature Pulse Rate 101 H 101 H 98 H Respiratory 21 29 H 21 Rate Blood Pressure 107/44 97/48 87/42 O2 Sat by Pulse 97 97 96 Oximetry 03/19/21 03/19/21 03/19/21 22:45 23:00 23:15 Temperature Pulse Rate 100 H 100 H 102 H Respiratory 19 20 22 Rate Blood Pressure 83/39 100/46 109/48 O2 Sat by Pulse 97 98 97 Oximetry 03/19/21 03/19/21 03/19/21 23:25 23:30 23:45 Temperature Pulse Rate 101 H 101 H 103 H Respiratory 25 H 18 Rate Blood Pressure 109/48 104/52 121/68 O2 Sat by Pulse 98 98 97 Oximetry 03/19/21 03/20/21 03/20/21 23:59 00:00 00:15 Temperature 100.1 F H Pulse Rate 106 H 105 H 104 H Respiratory 23 19 21 Rate Blood Pressure 121/68 125/84 126/80 O2 Sat by Pulse 96 96 95 Oximetry 03/20/21 03/20/21 03/20/21 00:30 00:45 01:01 Temperature Pulse Rate 104 H 101 H 100 H Respiratory 15 17 24 Rate Blood Pressure 110/77 109/61 94/42 O2 Sat by Pulse 97 96 95 Oximetry 03/20/21 03/20/21 03/20/21 01:15 01:30 01:45 Temperature Pulse Rate 99 H 101 H 99 H Respiratory 24 20 22 Rate Blood Pressure 96/40 111/54 103/55 O2 Sat by Pulse 96 96 96 Oximetry 03/20/21 03/20/21 03/20/21 02:01 02:15 02:30 Temperature Pulse Rate 102 H 98 H 104 H Respiratory 16 20 20 Rate Blood Pressure 116/79 118/74 130/94 O2 Sat by Pulse 97 97 97 Oximetry 03/20/21 03/20/21 03/20/21 02:45 03:00 03:15 Temperature Pulse Rate 96 H 101 H 96 H Respiratory 18 18 21 Rate Blood Pressure 126/78 120/75 120/75 O2 Sat by Pulse 96 96 96 Oximetry 03/20/21 03/20/21 03/20/21 03:30 03:45 04:00 Temperature 99.4 F Pulse Rate 95 H 98 H 93 H Respiratory 18 18 19 Rate Blood Pressure 111/69 128/70 108/59 O2 Sat by Pulse 97 97 97 Oximetry 03/20/21 03/20/21 03/20/21 04:15 04:30 04:39 Temperature Pulse Rate 100 H 99 H 100 H Respiratory 23 18 Rate Blood Pressure 114/72 125/82 114/72 O2 Sat by Pulse 97 97 96 Oximetry 03/20/21 03/20/21 03/20/21 04:45 05:01 05:15 Temperature Pulse Rate 97 H 104 H 97 H Respiratory 14 22 16 Rate Blood Pressure 114/72 142/93 127/79 O2 Sat by Pulse 97 96 97 Oximetry 03/20/21 03/20/21 03/20/21 05:30 05:45 06:00 Temperature Pulse Rate 97 H 99 H 96 H Respiratory 17 16 14 Rate Blood Pressure 125/75 112/74 116/63 O2 Sat by Pulse 97 98 97 Oximetry - Lab 03/27/21 08:20 03/27/21 08:20 Most recent lab results ABG pH 7.306 pH Units (7.350-7.450) L 03/20/21 04:37 ABG pCO2 57.2 mm Hg 03/20/21 04:37 ABG pO2 87.3 mm Hg (80.0-90.0) 03/20/21 04:37 ABG HCO3 27.9 mmol/L (20.0-26.0) H 03/20/21 04:37 ABG O2 Saturation 97.0 % (95.0-99.0) 03/20/21 04:37 Calcium 8.5 mg/dL (8.4-10.2) 03/20/21 04:00 Phosphorus 8.60 mg/dL (2.5-4.5) H 03/20/21 04:00 Magnesium 2.20 mg/dL (1.7-2.3) 03/20/21 04:00 Urine Creatinine 40.1 mg/dL (0.1-20.0) H 03/14/21 17:50 Urine Sodium 124 mmol/L 03/14/21 17:50 Medications & Allergies - Medications Allergies/Adverse Reactions: Allergies acetaminophen [From Percocet] Adverse Reaction (Verified 03/13/21 12:45) Swelling hydrocodone bitartrate [From Vicodin] Adverse Reaction (Verified 03/13/21 12:45) Swelling oxycodone HCl [From Percocet] Adverse Reaction (Verified 03/13/21 12:45) Swelling Home Medications: Home Medications Medication Instructions Recorded Confirmed Last Taken Type Chlorhexidine Mouthwash [Peridex] 15 ml MM BID #1 bottle 10/11/20 03/13/21 Unknown Rx Clindamycin [Clindamycin CAP] 300 mg PO Q8H #21 cap 10/11/20 03/13/21 Unknown Rx RX: Naproxen 500 mg PO Q12H PRN #12 tablet 10/11/20 03/13/21 Unknown Rx Butalb/Acetamin/Caff 50-325-40 1 - 2 tab PO Q6HR PRN #15 tab 12/05/20 03/13/21 Unknown Rx [Fioricet 50-325-40] Famotidine [Pepcid] 20 mg PO BID #30 tablet 12/05/20 03/13/21 Unknown Rx Ondansetron [Zofran Odt] 4 mg PO Q6HR PRN #20 tab.rapdis 12/05/20 03/13/21 Unknown Rx RX: Ketorolac [Toradol] 10 mg PO Q8H PRN #20 tablet 12/05/20 03/13/21 Unknown Rx Albuterol Sulfate [Proair 90 mcg IH Q4HR PRN #2 aer.pow.ba 01/01/21 03/13/21 Unknown Rx Respiclick] RX: Mupirocin [Bactroban 2% OINT] 1 applic TP BID 7 Days #1 tube 01/01/21 1 Unknown Rx RX: Triamcinolone Aceton 0.1% (Nf) 1 applic TP BID 14 Days #1 tube 01/01/21 Unknown Rx [Kenalog (NF)] RX: predniSONE [Deltasone] 40 mg PO QDAY #8 tab 01/01/21 03/13/21 Unknown Rx Active Medications: Generic Name Dose Route Start Last Admin Trade Name Freq PRN Reason Stop Dose Admin Acetaminophen 650 mg 03/13/21 19:30 Acetaminophen 325 Mg Tab PO Q4H PRN Pain MILD(1-3)/Fever >100.5/SALAS Acetylcysteine 200 mg 03/19/21 14:00 Acetylcysteine 20% 200 Mg/1 Ml *For Inhalation Use* INHALATION Q6HRT INESSA Albuterol 2.5 mg 03/19/21 00:53 Albuterol 2.5 Mg/3 Ml Nebu IH Q4HRT PRN Shortness Of Breath Albuterol/Ipratropium 1 ampul 03/19/21 08:00 03/20/21 04:43 Ipratropium/Albuterol Sulfate 3 Ml Ampul.Neb IH Not Given Q6HRT INESSA Lipase/Protease/Amylase 1 each 03/15/21 11:42 Lipase 10,500/Protease 25,000/Amylase 43,750 (Units) Dr White FEEDTUBE PRN PRN For Clogged Feeding Tube Ascorbic Acid 500 mg 03/14/21 22:00 03/19/21 21:59 Ascorbic Acid 500 Mg Tab PO 500 mg BID INESSA Administration Dexamethasone 6 mg 03/16/21 10:00 03/19/21 16:03 Dexamethasone 4 Mg/Ml Vial IV 03/23/21 10:01 6 mg Q24H INESSA Administration Dextrose 50 ml 03/14/21 11:02 03/15/21 11:40 Dextrose 50% In Water (25gm) 50 Ml Syringe IV 50 ml Q30MIN PRN Administration Hypoglycemia Protocol Famotidine 10 mg 03/17/21 22:00 03/19/21 21:59 Famotidine 10 Mg Tab PO 10 mg BID INESSA Administration Fentanyl 50 mcg 03/15/21 10:43 Fentanyl 100 Mcg/2 Ml Inj IV Q10MIN PRN ANALGESIA Heparin Sodium (Porcine) 7,500 unit 03/18/21 10:00 03/19/21 21:59 Heparin 5,000 Unit/1 Ml Vial SUB-Q 7,500 unit Q12HR INESSA Administration Hydralazine HCl 10 mg 03/15/21 10:10 03/15/21 10:32 Hydralazine 20 Mg/1 Ml Inj IV 10 mg Q4HR PRN Administration Hypertension Hydrophilic Ointment 1 applic 03/14/21 17:50 Lip Therapy Vaseline TP Q2HR PRN Dry Lips Propofol 1,000 mg in 100 mls @ 4.123 mls/hr 03/15/21 11:00 03/20/21 04:56 Diprivan 10 Mg/Ml IV 20 mcg/kg/min TITR INESSA 16.493 mls/hr Administration Protocol 5 MCG/KG/MIN Fentanyl Citrate 2,000 mcg in 100 mls @ 6.872 mls/hr 03/15/21 11:00 03/20/21 04:55 Fentanyl Drip Premix IV 3 mcg/kg/hr TITR INESSA 20.616 mls/hr Administration Protocol 1 MCG/KG/HR Sodium Chloride 500 mls @ 1 mls/hr 03/16/21 17:19 Nacl 0.9% 500 Ml IV DIRECT PRN ARTERIAL LINE FLUSH Sodium Chloride 100 mls @ 999 mls/hr 03/19/21 08:30 Nacl 0.9% IV KARLOS PRN Hypotension Cefazolin Sodium 1 gm in 50 mls @ 100 mls/hr 03/19/21 16:00 03/19/21 19:03 Ancef/Ns 1 Gm/50 Ml IV 100 mls/hr Q24H [facility] Administration Protocol Insulin Human Lispro 0 unit 03/14/21 12:00 03/19/21 19:04 Insulin Lispro 100 Unit/Ml SUB-Q Not Given Q6HR [facility] Protocol Lorazepam 1 mg 03/13/21 19:40 03/18/21 14:11 Lorazepam 2 Mg/Ml Vial IV 1 mg Q4H PRN Administration Anxiety Metoclopramide HCl 10 mg 03/19/21 13:00 03/19/21 21:59 Metoclopramide 10 Mg/2 Ml Inj IV 10 mg Q8H INESSA Administration Multi-Ingred Cream/Lotion/Oil/Oint 1 applic 03/14/21 17:50 Mineral Oil/Petrolatum, White Ophth Oint 3.5 Gm OU Q4HR PRN Dry Eye(s) Ondansetron HCl 4 mg 03/13/21 19:30 03/13/21 22:29 Ondansetron 4 Mg/2 Ml Inj IV 4 mg Q8H PRN Administration Nausea And Vomiting Senna/Docusate Sodium 1 tab 03/14/21 22:00 03/19/21 21:59 Sennosides/Docusate Sodium 8.6/50 Mg Tab FEEDTUBE 1 tab BID INESSA Administration Simple Syrup 15 ml 03/15/21 11:42 Simple Syrup 15 Ml FEEDTUBE PRN PRN Hypoglycemia Simple Syrup 30 ml 03/15/21 11:42 Simple Syrup 15 Ml FEEDTUBE PRN PRN Hypoglycemia Sodium Bicarbonate 325 mg 03/15/21 11:42 Sodium Bicarbonate 325 Mg Tab FEEDTUBE PRN PRN For Clogged Feeding Tube Sodium Chloride 10 ml 03/13/21 22:00 03/19/21 21:59 Sodium Chloride 0.9% 10 Ml Flush Syringe IV 10 ml BID INESSA Administration Sodium Chloride 10 ml 03/13/21 19:30 Sodium Chloride 0.9% 10 Ml Flush Syringe IV PRN PRN LINE FLUSH Zinc Sulfate 220 mg 03/14/21 22:00 03/19/21 21:59 Zinc Sulfate 220 Mg Cap PO 220 mg BID INESSA Administration
[2021-03-20] MEDS: SENNOSIDES/DOCUSATE SODIUM 8.6/50 MG TAB FEEDTUBE SCH (10:09)
[2021-03-20] MEDS: FAMOTIDINE 10 MG TAB PO SCH (10:09)
[2021-03-20] MEDS: HEPARIN 5,000 UNIT/1 ML VIAL SUB-Q SCH (10:10)
[2021-03-20] MEDS: ASCORBIC ACID 500 MG TAB PO SCH (10:10)
[2021-03-20] MEDS: ZINC SULFATE 220 MG CAP PO SCH (10:11)
[2021-03-20] MEDS ORDERED: SODIUM CHLORIDE 0.9% 100 ML IV PRN (10:54)
[2021-03-20] MEDS: METOCLOPRAMIDE 10 MG/2 ML INJ IV SCH (12:41)
[2021-03-20] MEDS: dexAMETHasone 4 MG/ML VIAL IV SCH (12:41)
[2021-03-20] MEDS: INSULIN LISPRO 100 UNIT/ML SUB-Q SCH ×2 (12:42→17:54)
--- NOTE | 2021-03-20 14:39 | Progress Note ---
Assessment and Plan Acute hypoxemic respiratory failure Acute asthma exacerbation Morbid obesity Crohn's disease Metabolic acidosis Acute kidney injury Coronavirus infection Pneumonia (CAP) Oropharyngeal dysphagia Obesity, if not mentioned above - get Dopplers of lower extremity for VTE w/up re: persistent hypoxemia and fevers - continue Reglan to 10mg IV q8h - nephrology input appreciated; HD/UF for toxin and volume clearance - increased peep to 12 cm H2O - repeat ABG in am - continue care as below otherwise; - HD/UF sessions per nephrology prescription - vasopressors for target MAP > 65 mmHg - continue Daily SAT and SBT assessment as tolerated - continue to wean supplemental oxygen for target O2 sat's > 90% acutely - VAP bundle addressed - continue lung protective strategies - continue bronchodilators with pulmonary hygiene per RT - wean per pulmonary driven protocols otherwise - continue accuchecks with glycemic control per SSI (While critically ill target blood glucose of 140-180 mg/dL; avoid hypoglycemia) - sedation prn for target RASS 0 to -1 - avoid nephrotoxins, renally dose all medications - continue to avoid benzodiazepine's, reduce the possibility of delirium - AB's per ID rec's - prn analgesia per CPOT score - Maintenance of sleep-wake cycle, avoid delirium - continue enteral nutritional support at goal rate as tolerated - G.I. & VTE prophylaxis - PT/OT/ROM exercises - continue mobility protocols for pressure ulcer prophylaxis - Monitor hemodynamics closely - continue other care per attending / other consultants - discharge planning ongoing concurrently COVID SPECIFIC INTERVENTIONS - Actemra ordered if available - Remdesivir as per ID/Pulmonary developed protocols (not a candidate) - continue systemic steroids for severe COVID-19 infection empirically - follow repeat COVID tests results - zinc and vitamin C supplementation - Monitor inflammatory markers per facility protocol - ferritin, Ddimer, CRP - therapeutic anticoagulation per system Protocol based on d-dimer and clinical considerations (VTE prophylaxis) - Continue contact and airborne isolation .... Re-evaluate in am & prn CONDITION: CRITICAL PROGNOSIS: GUARDED CODE STATUS: FULL CODE The high probability of a clinically significant, sudden or life-threatening deterioration of the [respiratory, cardiovascular, renal & neurologic] system(s) required my full and direct attention, intervention and personal management. The aggregate critical care time was [33] minutes without overlap. Time includes spent on; [x] Data Review and interpretation [x] Patient assessment and monitoring of vital signs [x] Documentation [x] Medication orders and management Subjective Date of service: 03/20/21 Principal diagnosis: Ac hypoxemic resp failure; AE-Asthma; SAI; Crohn's; COVID- 19; Pneumonia Interval history: Patient is seen today for: Acute hypoxemic respiratory failure; AE-Asthma; SAI; Crohn's disease; COVID-19 infection; Pneumonia (CAP) Seen and examined at bedside; 24hour events reviewed; nursing and respiratory care staff consulted; no adverse overnight events reported to me; resting in bed; HD/UF ongoing at time of my examination; compliance improved but remains with ARDS; no emesis or overt aspiration; + low grade fevers Objective Vital Signs - 12hr 03/20/21 03/20/21 03/20/21 02:45 03:00 03:15 Temperature Pulse Rate 96 H 101 H 96 H Pulse Rate [ Anterior Bilateral Throughout] Pulse Rate [ From Monitor] Respiratory 18 18 21 Rate Respiratory Rate [Anterior Bilateral Throughout] Blood Pressure 126/78 120/75 120/75 O2 Sat by Pulse 96 96 96 Oximetry 03/20/21 03/20/21 03/20/21 03:30 03:45 04:00 Temperature 99.4 F Pulse Rate 95 H 98 H 93 H Pulse Rate [ Anterior Bilateral Throughout] Pulse Rate [ From Monitor] Respiratory 18 18 19 Rate Respiratory Rate [Anterior Bilateral Throughout] Blood Pressure 111/69 128/70 108/59 O2 Sat by Pulse 97 97 97 Oximetry 03/20/21 03/20/21 03/20/21 04:15 04:30 04:39 Temperature Pulse Rate 100 H 99 H 100 H Pulse Rate [ Anterior Bilateral Throughout] Pulse Rate [ From Monitor] Respiratory 23 18 Rate Respiratory Rate [Anterior Bilateral Throughout] Blood Pressure 114/72 125/82 114/72 O2 Sat by Pulse 97 97 96 Oximetry 03/20/21 03/20/21 03/20/21 04:45 05:01 05:15 Temperature Pulse Rate 97 H 104 H 97 H Pulse Rate [ Anterior Bilateral Throughout] Pulse Rate [ From Monitor] Respiratory 14 22 16 Rate Respiratory Rate [Anterior Bilateral Throughout] Blood Pressure 114/72 142/93 127/79 O2 Sat by Pulse 97 96 97 Oximetry 03/20/21 03/20/21 03/20/21 05:30 05:45 06:00 Temperature Pulse Rate 97 H 99 H 96 H Pulse Rate [ Anterior Bilateral Throughout] Pulse Rate [ From Monitor] Respiratory 17 16 14 Rate Respiratory Rate [Anterior Bilateral Throughout] Blood Pressure 125/75 112/74 116/63 O2 Sat by Pulse 97 98 97 Oximetry 03/20/21 03/20/21 03/20/21 06:15 06:30 06:45 Temperature Pulse Rate 97 H 98 H 96 H Pulse Rate [ Anterior Bilateral Throughout] Pulse Rate [ From Monitor] Respiratory 19 22 23 Rate Respiratory Rate [Anterior Bilateral Throughout] Blood Pressure 116/63 127/81 117/74 O2 Sat by Pulse 97 97 99 Oximetry 03/20/21 03/20/21 03/20/21 07:00 07:15 07:30 Temperature Pulse Rate 94 H 93 H 92 H Pulse Rate [ Anterior Bilateral Throughout] Pulse Rate [ From Monitor] Respiratory 14 22 19 Rate Respiratory Rate [Anterior Bilateral Throughout] Blood Pressure 108/66 109/61 106/56 O2 Sat by Pulse 96 98 96 Oximetry 03/20/21 03/20/21 03/20/21 07:45 08:00 08:15 Temperature Pulse Rate 95 H 96 H 96 H Pulse Rate [ Anterior Bilateral Throughout] Pulse Rate [ From Monitor] Respiratory 18 14 22 Rate Respiratory Rate [Anterior Bilateral Throughout] Blood Pressure 114/61 113/63 107/61 O2 Sat by Pulse 96 98 97 Oximetry 03/20/21 03/20/21 03/20/21 08:23 08:25 08:31 Temperature Pulse Rate 96 H 97 H 100 H Pulse Rate [ 107 H Anterior Bilateral Throughout] Pulse Rate [ 97 H From Monitor] Respiratory 19 24 Rate Respiratory 22 Rate [Anterior Bilateral Throughout] Blood Pressure 107/61 131/74 O2 Sat by Pulse 98 97 95 Oximetry 03/20/21 03/20/21 03/20/21 08:45 09:00 09:15 Temperature Pulse Rate 104 H 103 H 109 H Pulse Rate [ Anterior Bilateral Throughout] Pulse Rate [ From Monitor] Respiratory 28 H 25 H 29 H Rate Respiratory Rate [Anterior Bilateral Throughout] Blood Pressure 137/84 129/93 149/82 O2 Sat by Pulse 91 91 91 Oximetry 03/20/21 03/20/21 03/20/21 09:30 09:45 10:00 Temperature Pulse Rate 107 H 103 H 103 H Pulse Rate [ Anterior Bilateral Throughout] Pulse Rate [ From Monitor] Respiratory 29 H 28 H 30 H Rate Respiratory Rate [Anterior Bilateral Throughout] Blood Pressure 154/82 149/93 139/80 O2 Sat by Pulse 92 92 91 Oximetry 03/20/21 03/20/21 03/20/21 10:15 10:30 10:45 Temperature Pulse Rate 106 H 107 H 104 H Pulse Rate [ Anterior Bilateral Throughout] Pulse Rate [ From Monitor] Respiratory 30 H 29 H 27 H Rate Respiratory Rate [Anterior Bilateral Throughout] Blood Pressure 143/92 158/90 141/90 O2 Sat by Pulse 92 92 89 Oximetry 03/20/21 03/20/21 03/20/21 11:00 11:15 11:30 Temperature Pulse Rate 105 H 109 H 105 H Pulse Rate [ Anterior Bilateral Throughout] Pulse Rate [ From Monitor] Respiratory 29 H 33 H 24 Rate Respiratory Rate [Anterior Bilateral Throughout] Blood Pressure 129/76 149/90 132/78 O2 Sat by Pulse 87 87 83 L Oximetry 03/20/21 03/20/21 03/20/21 11:45 12:00 12:13 Temperature Pulse Rate 114 H 110 H 110 H Pulse Rate [ Anterior Bilateral Throughout] Pulse Rate [ 110 H From Monitor] Respiratory 40 H 35 H 32 H Rate Respiratory Rate [Anterior Bilateral Throughout] Blood Pressure 149/90 141/84 O2 Sat by Pulse 82 L 94 95 Oximetry 03/20/21 03/20/21 03/20/21 12:15 12:20 12:26 Temperature 100.2 F H Pulse Rate 109 H 109 H Pulse Rate [ Anterior Bilateral Throughout] Pulse Rate [ From Monitor] Respiratory 36 H Rate Respiratory Rate [Anterior Bilateral Throughout] Blood Pressure 154/91 154/91 O2 Sat by Pulse 94 94 Oximetry 03/20/21 03/20/21 03/20/21 12:30 12:45 13:00 Temperature Pulse Rate 112 H 113 H 111 H Pulse Rate [ Anterior Bilateral Throughout] Pulse Rate [ From Monitor] Respiratory 33 H 20 21 Rate Respiratory Rate [Anterior Bilateral Throughout] Blood Pressure 155/89 144/99 111/61 O2 Sat by Pulse 94 90 89 Oximetry 03/20/21 03/20/21 03/20/21 13:15 13:30 13:45 Temperature Pulse Rate 108 H 108 H 106 H Pulse Rate [ Anterior Bilateral Throughout] Pulse Rate [ From Monitor] Respiratory 22 28 H 33 H Rate Respiratory Rate [Anterior Bilateral Throughout] Blood Pressure 113/67 138/96 148/94 O2 Sat by Pulse 93 92 91 Oximetry 03/20/21 14:24 Temperature Pulse Rate Pulse Rate [ 107 H Anterior Bilateral Throughout] Pulse Rate [ From Monitor] Respiratory Rate Respiratory 34 H Rate [Anterior Bilateral Throughout] Blood Pressure O2 Sat by Pulse Oximetry Constitutional: no acute distress, other (morbidly obese female with mild ventilator dyssynchrony) Eyes: non-icteric ENT: oropharynx moist, other (ETT 26 cm BALJINDER) Neck: supple, no lymphadenopathy, no JVD, other (large circumference) Effort: mildly labored Ascultation: Bilateral: diminished breath sounds, rhonchi Percussion: Bilateral: not dull Cardiovascular: regular rate and rhythm Gastrointestinal: normoactive bowel sounds, soft, non-tender, non-distended (protuberant) Integumentary: normal Extremities: no cyanosis, no edema, pulses normal, no ischemia or petechiae Neurologic: non-focal exam (grossly), pupils equal and round, CN II-XII normal, motor strength normal and, other (moves all extremities spontaneously) Psychiatric: other (unasble to assess) CBC and BMP: 03/20/21 04:00 03/20/21 13:50 ABG, PT/INR, D-dimer: ABG ABG pH 7.306 pH Units (7.350-7.450) L 03/20/21 04:37 POC ABG pCO2 54.5 mmHg (32.0-48.0) H 03/17/21 21:00 ABG pCO2 57.2 mm Hg 03/20/21 04:37 POC ABG pO2 62.3 mmHg (83-108) L 03/17/21 21:00 ABG pO2 87.3 mm Hg (80.0-90.0) 03/20/21 04:37 POC ABG HCO3 26.8 03/17/21 21:00 ABG O2 Saturation 97.0 % (95.0-99.0) 03/20/21 04:37 PT/INR, D-dimer PT 13.1 Sec. (12.2-14.9) 03/13/21 13:26 INR 0.89 (0.87-1.13) 03/13/21 13:26 D-Dimer > 76479 ng/mlDDU (0-234) H 03/20/21 04:00 Abnormal lab findings: Abnormal Labs 03/13/21 03/13/21 03/13/21 13:26 13:26 15:40 WBC RBC Hgb Hct MCH 27 L RDW 17.0 H Plt Count Lymph % (Auto) Darke # (Auto) Seg Neutrophils % Seg Neutrophils # D-Dimer ABG pH POC ABG pCO2 POC ABG pO2 ABG pO2 ABG HCO3 ABG O2 Saturation ABG Base Excess ABG Hemoglobin ABG Oxyhemoglobin ABG Sodium ABG Potassium ABG Glucose Oxyhemoglobin Carboxyhemoglobin Sodium 136 L Potassium Chloride Carbon Dioxide BUN Creatinine Glucose 125 H 130 H POC Glucose Hemoglobin A1c Calcium Phosphorus Magnesium Lactate Dehydrogenase 235 H C-Reactive Protein 4.30 H Total Protein Albumin Triglycerides Arterial Blood Glucose Arterial Blood Ionized Calcium Urine Creatinine Random Vancomycin Coronavirus (PCR) 03/13/21 03/14/21 03/14/21 21:33 03:35 06:21 WBC 20.0 H RBC Hgb Hct MCH 27 L RDW 17.5 H Plt Count Lymph % (Auto) 7.8 L Darke # (Auto) 1.3 H Seg Neutrophils % 85.4 H Seg Neutrophils # 17.1 H D-Dimer ABG pH 7.323 L 7.234 L POC ABG pCO2 POC ABG pO2 ABG pO2 69.8 L ABG HCO3 ABG O2 Saturation 92.9 L 94.9 L ABG Base Excess -3.3 L -5.4 L ABG Hemoglobin ABG Oxyhemoglobin ABG Sodium ABG Potassium ABG Glucose Oxyhemoglobin 91.2 L 93.2 L Carboxyhemoglobin Sodium Potassium Chloride Carbon Dioxide BUN Creatinine Glucose POC Glucose Hemoglobin A1c Calcium Phosphorus Magnesium Lactate Dehydrogenase C-Reactive Protein Total Protein Albumin Triglycerides Arterial Blood Glucose Arterial Blood Ionized Calcium Urine Creatinine Random Vancomycin Coronavirus (PCR) 03/14/21 03/14/21 03/14/21 06:21 07:47 11:21 WBC RBC Hgb Hct MCH RDW Plt Count Lymph % (Auto) Darke # (Auto) Seg Neutrophils % Seg Neutrophils # D-Dimer ABG pH POC ABG pCO2 POC ABG pO2 ABG pO2 ABG HCO3 ABG O2 Saturation ABG Base Excess ABG Hemoglobin ABG Oxyhemoglobin ABG Sodium ABG Potassium ABG Glucose Oxyhemoglobin Carboxyhemoglobin Sodium 136 L 136 L Potassium 6.2 H* D 5.4 H Chloride Carbon Dioxide 21 L 21 L BUN Creatinine 1.5 H D 1.8 H Glucose 144 H 141 H POC Glucose 147 H Hemoglobin A1c Calcium Phosphorus Magnesium Lactate Dehydrogenase C-Reactive Protein Total Protein 8.7 H 9.2 H Albumin 3.8 L Triglycerides Arterial Blood Glucose Arterial Blood Ionized Calcium Urine Creatinine Random Vancomycin Coronavirus (PCR) 03/14/21 03/14/21 03/14/21 17:29 17:50 18:35 WBC RBC Hgb Hct MCH RDW Plt Count Lymph % (Auto) Darke # (Auto) Seg Neutrophils % Seg Neutrophils # D-Dimer ABG pH POC ABG pCO2 POC ABG pO2 ABG pO2 ABG HCO3 ABG O2 Saturation ABG Base Excess ABG Hemoglobin ABG Oxyhemoglobin ABG Sodium ABG Potassium ABG Glucose Oxyhemoglobin Carboxyhemoglobin Sodium 135 L Potassium 6.4 H* Chloride Carbon Dioxide 15 L BUN 26 H Creatinine 3.4 H D Glucose 165 H POC Glucose 209 H Hemoglobin A1c Calcium Phosphorus Magnesium Lactate Dehydrogenase C-Reactive Protein Total Protein Albumin Triglycerides Arterial Blood Glucose Arterial Blood Ionized Calcium Urine Creatinine 40.1 H Random Vancomycin Coronavirus (PCR) 03/14/21 03/14/21 03/14/21 18:46 22:23 23:52 WBC RBC Hgb Hct MCH RDW Plt Count Lymph % (Auto) Darke # (Auto) Seg Neutrophils % Seg Neutrophils # D-Dimer ABG pH 7.270 L POC ABG pCO2 POC ABG pO2 63.4 L ABG pO2 ABG HCO3 ABG O2 Saturation ABG Base Excess ABG Hemoglobin ABG Oxyhemoglobin 90.2 L ABG Sodium 134.9 L ABG Potassium 5.3 H ABG Glucose 134 H Oxyhemoglobin Carboxyhemoglobin Sodium 136 L Potassium 5.2 H Chloride Carbon Dioxide 20 L BUN 29 H Creatinine 3.6 H Glucose 236 H POC Glucose 128 H Hemoglobin A1c Calcium Phosphorus Magnesium Lactate Dehydrogenase C-Reactive Protein Total Protein Albumin 3.2 L Triglycerides Arterial Blood Glucose 134 H Arterial Blood Ionized Calcium Urine Creatinine Random Vancomycin Coronavirus (PCR) 03/14/21 03/15/21 03/15/21 Unknown 05:00 05:09 WBC 22.5 H RBC Hgb Hct MCH 27 L RDW 17.6 H Plt Count Lymph % (Auto) Darke # (Auto) Seg Neutrophils % Seg Neutrophils # D-Dimer ABG pH POC ABG pCO2 POC ABG pO2 ABG pO2 ABG HCO3 ABG O2 Saturation ABG Base Excess ABG Hemoglobin ABG Oxyhemoglobin ABG Sodium ABG Potassium ABG Glucose Oxyhemoglobin Carboxyhemoglobin Sodium Potassium Chloride Carbon Dioxide BUN Creatinine Glucose POC Glucose 116 H Hemoglobin A1c Calcium Phosphorus Magnesium Lactate Dehydrogenase C-Reactive Protein Total Protein Albumin Triglycerides Arterial Blood Glucose Arterial Blood Ionized Calcium Urine Creatinine Random Vancomycin Coronavirus (PCR) Positive A 03/15/21 03/15/21 03/15/21 05:09 05:09 05:09 WBC RBC Hgb Hct MCH RDW Plt Count Lymph % (Auto) Darke # (Auto) Seg Neutrophils % Seg Neutrophils # D-Dimer ABG pH POC ABG pCO2 POC ABG pO2 ABG pO2 ABG HCO3 ABG O2 Saturation ABG Base Excess ABG Hemoglobin ABG Oxyhemoglobin ABG Sodium ABG Potassium ABG Glucose Oxyhemoglobin Carboxyhemoglobin Sodium 136 L Potassium 6.5 H* D Chloride Carbon Dioxide 17 L BUN 41 H Creatinine 5.3 H Glucose 128 H POC Glucose Hemoglobin A1c 6.3 H Calcium Phosphorus Magnesium Lactate Dehydrogenase C-Reactive Protein 12.10 H Total Protein Albumin 3.1 L Triglycerides Arterial Blood Glucose Arterial Blood Ionized Calcium Urine Creatinine Random Vancomycin Coronavirus (PCR) 03/15/21 03/15/21 03/15/21 10:00 21:50 23:39 WBC RBC Hgb Hct MCH RDW Plt Count Lymph % (Auto) Darke # (Auto) Seg Neutrophils % Seg Neutrophils # D-Dimer ABG pH 7.098 L POC ABG pCO2 72.7 H POC ABG pO2 ABG pO2 162.5 H ABG HCO3 ABG O2 Saturation ABG Base Excess ABG Hemoglobin 10.1 L ABG Oxyhemoglobin ABG Sodium ABG Potassium 5.7 H ABG Glucose Oxyhemoglobin Carboxyhemoglobin 0.4 L Sodium Potassium Chloride Carbon Dioxide BUN Creatinine Glucose POC Glucose 156 H Hemoglobin A1c Calcium Phosphorus Magnesium Lactate Dehydrogenase C-Reactive Protein Total Protein Albumin Triglycerides Arterial Blood Glucose Arterial Blood Ionized Calcium Urine Creatinine Random Vancomycin Coronavirus (PCR) 03/16/21 03/16/21 03/16/21 05:00 05:30 05:30 WBC 16.7 H RBC 3.59 L Hgb 9.6 L Hct 30.1 L MCH 27 L RDW 17.5 H Plt Count Lymph % (Auto) Darke # (Auto) Seg Neutrophils % Seg Neutrophils # D-Dimer ABG pH POC ABG pCO2 POC ABG pO2 ABG pO2 ABG HCO3 ABG O2 Saturation ABG Base Excess ABG Hemoglobin ABG Oxyhemoglobin ABG Sodium ABG Potassium ABG Glucose Oxyhemoglobin Carboxyhemoglobin Sodium Potassium Chloride Carbon Dioxide BUN 46 H Creatinine 6.2 H Glucose 131 H POC Glucose Hemoglobin A1c Calcium Phosphorus 6.00 H D Magnesium Lactate Dehydrogenase 318 H C-Reactive Protein 18.60 H Total Protein Albumin 3.0 L Triglycerides Arterial Blood Glucose Arterial Blood Ionized Calcium Urine Creatinine Random Vancomycin Coronavirus (PCR) 03/16/21 03/16/21 03/16/21 05:51 06:37 08:58 WBC RBC Hgb Hct MCH RDW Plt Count Lymph % (Auto) Darke # (Auto) Seg Neutrophils % Seg Neutrophils # D-Dimer 3041.12 H ABG pH POC ABG pCO2 POC ABG pO2 ABG pO2 141.5 H ABG HCO3 ABG O2 Saturation ABG Base Excess ABG Hemoglobin 9.7 L ABG Oxyhemoglobin ABG Sodium ABG Potassium ABG Glucose Oxyhemoglobin Carboxyhemoglobin Sodium Potassium Chloride Carbon Dioxide BUN Creatinine Glucose POC Glucose 126 H Hemoglobin A1c Calcium Phosphorus Magnesium Lactate Dehydrogenase C-Reactive Protein Total Protein Albumin Triglycerides Arterial Blood Glucose Arterial Blood Ionized Calcium Urine Creatinine Random Vancomycin Coronavirus (PCR) 03/16/21 03/16/21 03/16/21 12:11 16:51 21:00 WBC RBC Hgb Hct MCH RDW Plt Count Lymph % (Auto) Darke # (Auto) Seg Neutrophils % Seg Neutrophils # D-Dimer ABG pH 7.239 L POC ABG pCO2 61.5 H POC ABG pO2 80.8 L ABG pO2 ABG HCO3 ABG O2 Saturation ABG Base Excess ABG Hemoglobin 11.4 L ABG Oxyhemoglobin 93.5 L ABG Sodium ABG Potassium 5.4 H ABG Glucose 137 H Oxyhemoglobin Carboxyhemoglobin 0.2 L Sodium Potassium Chloride Carbon Dioxide BUN Creatinine Glucose POC Glucose 156 H 133 H Hemoglobin A1c Calcium Phosphorus Magnesium Lactate Dehydrogenase C-Reactive Protein Total Protein Albumin Triglycerides Arterial Blood Glucose 137 H Arterial Blood Ionized Calcium Urine Creatinine Random Vancomycin Coronavirus (PCR) 03/16/21 03/17/21 03/17/21 23:42 05:23 05:23 WBC 18.4 H RBC Hgb Hct MCH 27 L RDW 17.4 H Plt Count Lymph % (Auto) Darke # (Auto) Seg Neutrophils % Seg Neutrophils # D-Dimer ABG pH POC ABG pCO2 POC ABG pO2 ABG pO2 ABG HCO3 ABG O2 Saturation ABG Base Excess ABG Hemoglobin ABG Oxyhemoglobin ABG Sodium ABG Potassium ABG Glucose Oxyhemoglobin Carboxyhemoglobin Sodium Potassium 5.2 H Chloride Carbon Dioxide 21 L BUN 79 H Creatinine 8.6 H Glucose 124 H POC Glucose 133 H Hemoglobin A1c Calcium Phosphorus Magnesium Lactate Dehydrogenase C-Reactive Protein Total Protein Albumin 3.2 L Triglycerides 285 H Arterial Blood Glucose Arterial Blood Ionized Calcium Urine Creatinine Random Vancomycin Coronavirus (PCR) 03/17/21 03/17/21 03/17/21 05:23 10:48 12:20 WBC RBC Hgb Hct MCH RDW Plt Count Lymph % (Auto) Darke # (Auto) Seg Neutrophils % Seg Neutrophils # D-Dimer ABG pH 7.294 L POC ABG pCO2 POC ABG pO2 ABG pO2 90.3 H ABG HCO3 ABG O2 Saturation ABG Base Excess ABG Hemoglobin 9.9 L ABG Oxyhemoglobin ABG Sodium ABG Potassium ABG Glucose Oxyhemoglobin Carboxyhemoglobin Sodium Potassium 5.2 H Chloride Carbon Dioxide 21 L BUN 79 H Creatinine 8.4 H Glucose 125 H POC Glucose 171 H Hemoglobin A1c Calcium Phosphorus 9.90 H D Magnesium 2.40 H Lactate Dehydrogenase C-Reactive Protein Total Protein Albumin Triglycerides Arterial Blood Glucose Arterial Blood Ionized Calcium Urine Creatinine Random Vancomycin Coronavirus (PCR) 03/17/21 03/17/21 03/18/21 17:24 21:00 04:30 WBC RBC Hgb Hct MCH RDW Plt Count Lymph % (Auto) Darke # (Auto) Seg Neutrophils % Seg Neutrophils # D-Dimer 9953.09 H ABG pH 7.310 L POC ABG pCO2 54.5 H POC ABG pO2 62.3 L ABG pO2 ABG HCO3 ABG O2 Saturation ABG Base Excess ABG Hemoglobin 10.2 L ABG Oxyhemoglobin 88.6 L ABG Sodium ABG Potassium 4.7 H ABG Glucose 99 H Oxyhemoglobin Carboxyhemoglobin 0.3 L Sodium Potassium Chloride Carbon Dioxide BUN Creatinine Glucose POC Glucose 121 H Hemoglobin A1c Calcium Phosphorus Magnesium Lactate Dehydrogenase C-Reactive Protein Total Protein Albumin Triglycerides Arterial Blood Glucose 99 H Arterial Blood Ionized Calcium 4.3 L Urine Creatinine Random Vancomycin Coronavirus (PCR) 03/18/21 03/18/21 03/18/21 04:30 04:30 11:34 WBC 12.8 H RBC 3.49 L Hgb 9.4 L Hct 29.3 L MCH 27 L RDW 17.4 H Plt Count Lymph % (Auto) Darke # (Auto) Seg Neutrophils % Seg Neutrophils # D-Dimer ABG pH POC ABG pCO2 POC ABG pO2 ABG pO2 ABG HCO3 ABG O2 Saturation ABG Base Excess ABG Hemoglobin ABG Oxyhemoglobin ABG Sodium ABG Potassium ABG Glucose Oxyhemoglobin Carboxyhemoglobin Sodium Potassium Chloride Carbon Dioxide BUN 69 H Creatinine 7.3 H Glucose POC Glucose 114 H Hemoglobin A1c Calcium 8.2 L Phosphorus 7.60 H D Magnesium Lactate Dehydrogenase 477 H C-Reactive Protein 6.90 H Total Protein Albumin Triglycerides Arterial Blood Glucose Arterial Blood Ionized Calcium Urine Creatinine Random Vancomycin Coronavirus (PCR) 03/18/21 03/19/21 03/19/21 21:44 04:13 04:13 WBC 13.7 H RBC 3.32 L Hgb 9.0 L Hct 28.1 L MCH 27 L RDW 16.9 H Plt Count Lymph % (Auto) Darke # (Auto) Seg Neutrophils % Seg Neutrophils # D-Dimer ABG pH 7.290 L POC ABG pCO2 POC ABG pO2 ABG pO2 119.7 H ABG HCO3 28.0 H ABG O2 Saturation ABG Base Excess ABG Hemoglobin 9.6 L ABG Oxyhemoglobin ABG Sodium ABG Potassium ABG Glucose Oxyhemoglobin Carboxyhemoglobin Sodium Potassium Chloride Carbon Dioxide BUN Creatinine Glucose POC Glucose Hemoglobin A1c Calcium Phosphorus Magnesium Lactate Dehydrogenase C-Reactive Protein Total Protein Albumin Triglycerides Arterial Blood Glucose Arterial Blood Ionized Calcium Urine Creatinine Random Vancomycin 43.5 H Coronavirus (PCR) 03/19/21 03/19/21 03/19/21 04:13 05:59 11:40 WBC RBC Hgb Hct MCH RDW Plt Count Lymph % (Auto) Darke # (Auto) Seg Neutrophils % Seg Neutrophils # D-Dimer ABG pH POC ABG pCO2 POC ABG pO2 ABG pO2 ABG HCO3 ABG O2 Saturation ABG Base Excess ABG Hemoglobin ABG Oxyhemoglobin ABG Sodium ABG Potassium ABG Glucose Oxyhemoglobin Carboxyhemoglobin Sodium Potassium Chloride Carbon Dioxide BUN 55 H Creatinine 7.0 H Glucose POC Glucose 116 H 145 H Hemoglobin A1c Calcium 8.1 L Phosphorus 7.90 H Magnesium Lactate Dehydrogenase C-Reactive Protein Total Protein Albumin Triglycerides Arterial Blood Glucose Arterial Blood Ionized Calcium Urine Creatinine Random Vancomycin Coronavirus (PCR) 03/19/21 03/19/21 03/20/21 17:01 23:41 04:00 WBC 15.6 H RBC 3.55 L Hgb 9.6 L Hct MCH 27 L RDW 16.8 H Plt Count 139 L Lymph % (Auto) Darke # (Auto) Seg Neutrophils % Seg Neutrophils # D-Dimer ABG pH POC ABG pCO2 POC ABG pO2 ABG pO2 ABG HCO3 ABG O2 Saturation ABG Base Excess ABG Hemoglobin ABG Oxyhemoglobin ABG Sodium ABG Potassium ABG Glucose Oxyhemoglobin Carboxyhemoglobin Sodium Potassium Chloride Carbon Dioxide BUN Creatinine Glucose POC Glucose 111 H 118 H Hemoglobin A1c Calcium Phosphorus Magnesium Lactate Dehydrogenase C-Reactive Protein Total Protein Albumin Triglycerides Arterial Blood Glucose Arterial Blood Ionized Calcium Urine Creatinine Random Vancomycin Coronavirus (PCR) 03/20/21 03/20/21 03/20/21 04:00 04:00 04:37 WBC RBC Hgb Hct MCH RDW Plt Count Lymph % (Auto) [place]ke # (Auto) Seg Neutrophils % Seg Neutrophils # D-Dimer > 82055 H ABG pH 7.306 L POC ABG pCO2 POC ABG pO2 ABG pO2 ABG HCO3 27.9 H ABG O2 Saturation ABG Base Excess ABG Hemoglobin 5.2 L ABG Oxyhemoglobin ABG Sodium ABG Potassium ABG Glucose Oxyhemoglobin Carboxyhemoglobin Sodium Potassium 5.2 H Chloride 97.6 L Carbon Dioxide BUN 52 H Creatinine 6.2 H Glucose 104 H POC Glucose Hemoglobin A1c Calcium Phosphorus 8.60 H Magnesium Lactate Dehydrogenase C-Reactive Protein 6.90 H Total Protein Albumin Triglycerides Arterial Blood Glucose Arterial Blood Ionized Calcium Urine Creatinine Random Vancomycin Coronavirus (PCR) Chest x-ray: other (none today) Allied health notes reviewed: nursing
--- NOTE | 2021-03-20 14:51 | Progress Note ---
Assessment and Plan Assessment and plan: This is a 31-year-old female with asthma, morbid obesity and Crohn's disease admitted for COVID-19 pneumonia and and acute renal failure Neuro: Sedated -Intubated and sedated on propofol and fentanyl -RASS goal 0 to -1 -Daily SAT/SBT when appropriate -Maintain sleep-wake cycle -Avoid delirium -Bilateral wrist restraints in place for safety CV: Tachycardia, hypertension -ST on the monitor -As needed antihypertensive for SBP greater than 160 -Maintain MAP above 65 -Blood pressure monitoring per protocol Respiratory: Acute hypoxic respiratory failure, asthma exacerbation, COVID-19 pneumonia, ARDS -DuoNeb, steroids -Patient was intubated on 03/14 for respiratory distress and inability to protect airway -Intubated with 7.50 ETT at 24 at the lip -A.m. vent settings: ac rate 20, tv 500, FiO2 90%, peep 12 -See RT notes for titration -[facility] is allowing for permissive hypercapnia -ABGs per [facility] -03/18 CXR noted -VAP bundle -SPO2 monitoring -CCM/pulmonary consulted, appreciate recommendations -S/p BiPAP therapy GI: h/o MO and Crohn's disease -Nutrition consulted, appreciate recommendations -Tube feeding -changed to Nepro -Free water 100 mL every 4 hours -BR: Senokot -PPI -24 hours +1276 -HD removed 3 L yesterday -Reglan for increased TF residuals -Tolerating TF at trickle now -advance per [facility] : Acute kidney injury likely secondary to ATN, hyperphosphatemia -Nephrology consulted, appreciate recommendations -Vas-Cath placed 03/15 -HD initiated 03/15 -Daily weights -Strict intake and output -Avoid nephrotoxic medications -Renally dose medications -Trend BMP -Intervene for electrolytes as needed -Daily HD for now per nephrology ID: COVID-19 pneumonia, leukocytosis, Staph aureus in tracheal aspirate -Infectious disease consulted, appreciate recommendations -COVID-19 PCR positive -IV methylprednisone -Ordered Actemra per ID -Per ID patient is on a candidate for remdesivir due to renal failure -Patient received 1 dose of remdesivir on 03/14 -Prophylactic anticoagulation based on D-dimer -Azithromycin and ceftriaxone discontinued -Started on vancomycin, PKS to dose -Trend COVID-19 inflammatory markers -Isolation/droplet precautions -Vitamin C/vitamin D/zinc -03/13 BC x2 no growth to date -03/14 tracheal aspirate with Staph aureus (ID aware) -currently on Cefazolin -Monitor WBC and fever curve Heme: Leukocytosis, elevated D-dimer -Trend CBC -Transfuse hemoglobin less than 7 -Prophylactic heparin -SCDs to bilateral lower extremity while in bed -BLE duplex US ordered Endo: Possible some degree of insulin resistance -Hemoglobin A1c 6.3 -SSI -Accu-Cheks every 6 -Avoid hypoglycemia -Target blood glucose while critically ill 140-180 The high probability of a clinically significant, sudden or life threatening deterioration of the [multiple] system(s) required my full and direct attention, intervention and personal management. The aggregate critical care time was [60] minutes. This time is in addition to time spent performing reported procedures but includes the following: [x] Data Review and interpretation [x] Patient assessment and monitoring of vital signs [x] Documentation [x] Medication orders and management Disposition Plan: icu Total Time Spent with Patient (Minutes): 60 History Interval history: This is a 31-year-old female with asthma, history of prior intubation x1 in 02/2019, morbid obesity and Crohn's disease who presented to the emergency department on 03/13 with complaints of severe wheezing and shortness of breath over the past 4 days which is not relieved by home nebulizer treatments or rescue inhalers, cough without fever and no loss of sense of taste or smell. Patient is currently on vaccinated for COVID-19. In the emergency department patient was placed on BiPAP given steroids magnesium Solu-Medrol with improvement, CXR shows a streak of possible pneumonia. Patient was made a COVID-19 PUI and admitted to the hospital service. Patient was initially admitted to [facility] on BiPAP and was subsequently intubated due to severe respira tory distress and inability to protect her airway. Patient was admitted with acute hypoxic respiratory failure, acute asthma exacerbation, right upper lobe pneumonia, and as a COVID-19 PUI. Hospital Course to Date: 03/14/21- Patient is s/p intubation from this morning, sedated on propofol and fentanyl RASS -3 to -4. ETT above the clavicles advanced by 2cc. Continue nebs and IV steroids per CCM. COVID swab pending. Hyperkalemia improved, X1 dose of kayaxalate ordered. Low BP and low urine output this am, fluid bolus challenge, 500cc of NS bolus given. Continue to monitor electrolytes and renal function, repeat BMP this afternoon. 03/15: Patient's renal function noted to be significantly worse today, patient was hyperkalemic and this was medically treated. Patient initiated on hemodialysis today. Patient disease was consulted today. 03/16: No acute events reported overnight, patient received hemodialysis yesterday. Patient is currently on propofol and fentanyl. 03/17: Patient received hemodialysis today, patient is slightly acidotic on ABG however CCM is allowing for permissive hypercapnia, tracheal aspirate with Staph aureus and ID is aware. 03/18: Patient is having high residuals today and Reglan was started, patient will receive HD daily per nephrology, correct her change in FiO2 as tolerated. 03/19: HD per nephrology today, antibiotics changed to cefazolin. Patient did not tolerate tube feedings as she had high residuals this morning and they were turned off. Not restarted yet. Updated family at bedside today 03/20: HD today, ddimer noted to be >1000, Tolerating trickle TF. Stat BLE dopplar US Hospitalist Physical - Constitutional Vitals: Temp Pulse Resp BP Pulse Ox 100.2 F H 107 H 34 H 148/94 91 03/20/21 12:20 03/20/21 14:24 03/20/21 14:24 03/20/21 13:45 03/20/21 13:45 General appearance: Present: no acute distress, well-nourished, obese, other (Intubated and sedated) - EENT Eyes: Present: PERRL, EOM intact ENT: clear oral mucosa - Neck Neck: Present: normal ROM - Respiratory Respiratory effort: normal Respiratory: bilateral: diminished - Cardiovascular Rhythm: regular Heart Sounds: Present: S1 & S2. Absent: systolic murmur, diastolic murmur - Extremities Extremities: no ischemia, pulses intact, pulses symmetrical Extremity abnormal: edema Peripheral Pulses: within normal limits - Abdominal General gastrointestinal: soft, non-tender, non-distended - Integumentary Integumentary: Present: warm, dry - Psychiatric Psychiatric: cooperative - Neurologic Neurologic: other (sedated) - Allied Health Allied health notes reviewed: nursing, RT, social work Results - Labs CBC & Chem 7: 03/20/21 04:00 03/20/21 13:50 Labs: Laboratory Last Values WBC 15.6 K/mm3 (4.5-11.0) H 03/20/21 04:00 RBC 3.55 M/mm3 (3.65-5.03) L 03/20/21 04:00 Hgb 9.6 gm/dl (10.1-14.3) L 03/20/21 04:00 Hct 30.3 % (30.3-42.9) 03/20/21 04:00 MCV 85 fl (79-97) 03/20/21 04:00 MCH 27 pg (28-32) L 03/20/21 04:00 MCHC 32 % (30-34) 03/20/21 04:00 RDW 16.8 % (13.2-15.2) H 03/20/21 04:00 Plt Count 139 K/mm3 (140-440) L 03/20/21 04:00 Lymph % (Auto) 7.8 % (13.4-35.0) L 03/14/21 06:21 [place] % (Auto) 6.7 % (0.0-7.3) 03/14/21 06:21 Eos % (Auto) 0.0 % (0.0-4.3) 03/14/21 06:21 Baso % (Auto) 0.1 % (0.0-1.8) 03/14/21 06:21 Lymph # (Auto) 1.6 K/mm3 (1.2-5.4) 03/14/21 06:21 [place] # (Auto) 1.3 K/mm3 (0.0-0.8) H 03/14/21 06:21 Eos # (Auto) 0.0 K/mm3 (0.0-0.4) 03/14/21 06:21 Baso # (Auto) 0.0 K/mm3 (0.0-0.1) 03/14/21 06:21 Seg Neutrophils % 85.4 % (40.0-70.0) H 03/14/21 06:21 Seg Neutrophils # 17.1 K/mm3 (1.8-7.7) H 03/14/21 06:21 PT 13.1 Sec. (12.2-14.9) 03/13/21 13:26 INR 0.89 (0.87-1.13) 03/13/21 13:26 D-Dimer > 00879 ng/mlDDU (0-234) H 03/20/21 04:00 ABG pH 7.306 pH Units (7.350-7.450) L 03/20/21 04:37 POC ABG pCO2 54.5 mmHg (32.0-48.0) H 03/17/21 21:00 ABG pCO2 57.2 mm Hg 03/20/21 04:37 POC ABG pO2 62.3 mmHg (83-108) L 03/17/21 21:00 ABG pO2 87.3 mm Hg (80.0-90.0) 03/20/21 04:37 POC ABG HCO3 26.8 03/17/21 21:00 ABG HCO3 27.9 mmol/L (20.0-26.0) H 03/20/21 04:37 ABG O2 Saturation 97.0 % (95.0-99.0) 03/20/21 04:37 ABG O2 Content 7.2 (0.0-44) 03/20/21 04:37 POC ABG Base Excess 0 03/17/21 21:00 ABG Base Excess 1.6 mmol/L (-2.0-3.0) 03/20/21 04:37 ABG Hemoglobin 5.2 gm/dl (12.0-16.0) L 03/20/21 04:37 ABG Oxyhemoglobin 88.6 (94-98) L 03/17/21 21:00 ABG Carboxyhemoglobin 1.3 % (0.0-5.0) 03/20/21 04:37 ABG Methemoglobin 0.5 % (0.0-1.5) 03/20/21 04:37 ABG Sodium 138.1 mmol/L (136.0-145.0) 03/17/21 21:00 ABG Potassium 4.7 mmol/L (3.40-4.50) H 03/17/21 21:00 ABG Chloride 104.0 mmol/L (98-107) 03/17/21 21:00 ABG Glucose 99 mg/dL (65-95) H 03/17/21 21:00 Oxyhemoglobin 95.3 % (95.0-99.0) 03/20/21 04:37 Carboxyhemoglobin 0.3 (0.5-1.5) L 03/17/21 21:00 FiO2 90 % 03/20/21 04:37 FiO2 % 60.0 03/17/21 21:00 Sodium 137 mmol/L (137-145) 03/20/21 04:00 Potassium 5.2 mmol/L (3.6-5.0) H 03/20/21 04:00 Chloride 97.6 mmol/L (98-107) L 03/20/21 04:00 Carbon Dioxide 24 mmol/L (22-30) 03/20/21 04:00 Anion Gap 21 mmol/L 03/20/21 04:00 BUN 63 mg/dL (7-17) H 03/20/21 13:50 Creatinine 6.2 mg/dL (0.6-1.2) H 03/20/21 04:00 Estimated GFR 10 ml/min 03/20/21 04:00 BUN/Creatinine Ratio 8 % 03/20/21 04:00 Glucose 104 mg/dL (65-100) H 03/20/21 04:00 POC Glucose 93 mg/dL (70-105) 03/20/21 11:35 Hemoglobin A1c 6.3 % (4-6) H 03/15/21 05:09 Lactic Acid 2.00 mmol/L (0.7-2.0) 03/14/21 18:47 Calcium 8.5 mg/dL (8.4-10.2) 03/20/21 04:00 Phosphorus 8.60 mg/dL (2.5-4.5) H 03/20/21 04:00 Magnesium 2.20 mg/dL (1.7-2.3) 03/20/21 04:00 Ferritin 151.6 ng/mL (10.0-200.0) 03/18/21 04:30 Total Bilirubin 0.20 mg/dL (0.1-1.2) 03/17/21 05:23 AST 35 units/L (5-40) 03/17/21 05:23 ALT 24 units/L (7-56) 03/17/21 05:23 Alkaline Phosphatase 78 units/L (35-129) 03/17/21 05:23 Lactate Dehydrogenase 477 units/L (91-180) H 03/18/21 04:30 C-Reactive Protein 6.90 mg/dL (0.00-1.30) H 03/20/21 04:00 Total Protein 6.7 g/dL (6.3-8.2) 03/17/21 05:23 Albumin 3.2 g/dL (3.9-5) L 03/17/21 05:23 Albumin/Globulin Ratio 0.9 % 03/17/21 05:23 Triglycerides 285 mg/dL (2-149) H 03/17/21 05:23 Procalcitonin < 0.05 ng/mL (<0.15) 03/13/21 15:40 HCG, Qual Negative (Negative) 03/13/21 13:26 Arterial Blood Glucose 99 mg/dL (65-95) H 03/17/21 21:00 Arterial Blood Ionized Calcium 4.3 mg/dL (4.6-5.3) L 03/17/21 21:00 Urine Creatinine 40.1 mg/dL (0.1-20.0) H 03/14/21 17:50 Urine Sodium 124 mmol/L 03/14/21 17:50 Random Vancomycin 11.2 ug/mL (0-40.0) 03/20/21 04:23 Coronavirus (PCR) Positive (Negative) A 03/14/21 Unknown Hepatitis A IgM Ab Non-reactive (NonReactive) 03/15/21 05:09 Hep Bs Antigen Nonreactive (Negative) 03/15/21 05:09 Hep B Core IgM Ab Non-reactive (NonReactive) 03/15/21 05:09 Hepatitis C Antibody Non-reactive (NonReactive) 03/15/21 05:09 Microbiology: Microbiology 03/14/21 01:25 Tracheal Aspirate Sputum Culture - Preliminary Staphylococcus Aureus Bazan/IV: Voiding Method Indwelling Catheter Active Medications - Current Medications Current Medications: Generic Name Dose Route Start Last Admin Trade Name Freq PRN Reason Stop Dose Admin Acetaminophen 650 mg 03/13/21 19:30 Acetaminophen 325 Mg Tab PO Q4H PRN Pain MILD(1-3)/Fever >100.5/SALAS Acetylcysteine 200 mg 03/19/21 14:00 Acetylcysteine 20% 200 Mg/1 Ml *For Inhalation Use* INHALATION Q6HRT INESSA Albuterol 2.5 mg 03/19/21 00:53 Albuterol 2.5 Mg/3 Ml Nebu IH Q4HRT PRN Shortness Of Breath Albuterol/Ipratropium 1 ampul 03/19/21 08:00 03/20/21 14:24 Ipratropium/Albuterol Sulfate 3 Ml Ampul.Neb IH 1 ampul Q6HRT INESSA Administration Lipase/Protease/Amylase 1 each 03/15/21 11:42 Lipase 10,500/Protease 25,000/Amylase 43,750 (Units) Dr Cap FEEDTUBE PRN PRN For Clogged Feeding Tube Ascorbic Acid 500 mg 03/14/21 22:00 03/20/21 10:10 Ascorbic Acid 500 Mg Tab PO 500 mg BID INESSA Administration Dexamethasone 6 mg 03/16/21 10:00 03/20/21 12:41 Dexamethasone 4 Mg/Ml Vial IV 03/23/21 10:01 6 mg Q24H INESSA Administration Dextrose 50 ml 03/14/21 11:02 03/15/21 11:40 Dextrose 50% In Water (25gm) 50 Ml Syringe IV 50 ml Q30MIN PRN Administration Hypoglycemia Protocol Famotidine 10 mg 03/17/21 22:00 03/20/21 10:09 Famotidine 10 Mg Tab PO 10 mg BID INESSA Administration Fentanyl 50 mcg 03/15/21 10:43 Fentanyl 100 Mcg/2 Ml Inj IV Q10MIN PRN ANALGESIA Heparin Sodium (Porcine) 7,500 unit 03/18/21 10:00 03/20/21 10:10 Heparin 5,000 Unit/1 Ml Vial SUB-Q 7,500 unit Q12HR INESSA Administration Hydralazine HCl 10 mg 03/15/21 10:10 03/15/21 10:32 Hydralazine 20 Mg/1 Ml Inj IV 10 mg Q4HR PRN Administration Hypertension Hydrophilic Ointment 1 applic 03/14/21 17:50 Lip Therapy Vaseline TP Q2HR PRN Dry Lips Propofol 1,000 mg in 100 mls @ 4.123 mls/hr 03/15/21 11:00 03/20/21 14:05 Diprivan 10 Mg/Ml IV 25 mcg/kg/min TITR INESSA 20.616 mls/hr Titration Protocol 5 MCG/KG/MIN Fentanyl Citrate 2,000 mcg in 100 mls @ 6.872 mls/hr 03/15/21 11:00 03/20/21 14:04 Fentanyl Drip Premix IV 3 mcg/kg/hr TITR INESSA 20.616 mls/hr Administration Protocol 1 MCG/KG/HR Sodium Chloride 500 mls @ 1 mls/hr 03/16/21 17:19 Nacl 0.9% 500 Ml IV DIRECT PRN ARTERIAL LINE FLUSH Sodium Chloride 100 mls @ 999 mls/hr 03/19/21 08:30 Nacl 0.9% IV KARLOS PRN Hypotension Cefazolin Sodium 1 gm in 50 mls @ 100 mls/hr 03/19/21 16:00 03/19/21 19:03 Ancef/Ns 1 Gm/50 Ml IV 100 mls/hr Q24H INESSA Administration Protocol Sodium Chloride 100 mls @ 999 mls/hr 03/20/21 10:54 Nacl 0.9% IV KARLOS PRN Hypotension Insulin Human Lispro 0 unit 03/14/21 12:00 03/20/21 12:42 Insulin Lispro 100 Unit/Ml SUB-Q Not Given Q6HR [facility] Protocol Lorazepam 1 mg 03/13/21 19:40 03/18/21 14:11 Lorazepam 2 Mg/Ml Vial IV 1 mg Q4H PRN Administration Anxiety Metoclopramide HCl 10 mg 03/19/21 13:00 03/20/21 12:41 Metoclopramide 10 Mg/2 Ml Inj IV 10 mg Q8H INESSA Administration Multi-Ingred Cream/Lotion/Oil/Oint 1 applic 03/14/21 17:50 Mineral Oil/Petrolatum, White Ophth Oint 3.5 Gm OU Q4HR PRN Dry Eye(s) Ondansetron HCl 4 mg 03/13/21 19:30 03/13/21 22:29 Ondansetron 4 Mg/2 Ml Inj IV 4 mg Q8H PRN Administration Nausea And Vomiting Senna/Docusate Sodium 1 tab 03/14/21 22:00 03/20/21 10:09 Sennosides/Docusate Sodium 8.6/50 Mg Tab FEEDTUBE 1 tab BID INESSA Administration Simple Syrup 15 ml 03/15/21 11:42 Simple Syrup 15 Ml FEEDTUBE PRN PRN Hypoglycemia Simple Syrup 30 ml 03/15/21 11:42 Simple Syrup 15 Ml FEEDTUBE PRN PRN Hypoglycemia Sodium Bicarbonate 325 mg 03/15/21 11:42 Sodium Bicarbonate 325 Mg Tab FEEDTUBE PRN PRN For Clogged Feeding Tube Sodium Chloride 10 ml 03/13/21 22:00 03/20/21 12:42 Sodium Chloride 0.9% 10 Ml Flush Syringe IV 10 ml BID INESSA Administration Sodium Chloride 10 ml 03/13/21 19:30 Sodium Chloride 0.9% 10 Ml Flush Syringe IV PRN PRN LINE FLUSH Zinc Sulfate 220 mg 03/14/21 22:00 03/20/21 10:11 Zinc Sulfate 220 Mg Cap PO 220 mg BID INESSA Administration Nutrition/Malnutrition Assess - Dietary Evaluation Nutrition/Malnutrition Findings: Nutrition Notes Start: 03/15/21 11:06 Freq: Status: Active Protocol: Document 03/19/21 16:31 GB (Rec: 03/19/21 16:37 GB [id number]) Nutrition Notes Initial or Follow up Reassessment Current Diagnosis Respiratory Failure Other Pertinent Diagnosis SOB. PMHx: asthma, morbid obesity, crohn's disease Current Diet No diet order: should be NPO - Tube Feeding Labs/Tests 03/19: BUN 55, creatinine 8.1, Ca 8.1, P 7.9 A1c 6.3 Pertinent Medications Vit C, D5(PRN), Fentanyl Citrate, Propofol 16.493ml/hr (435kcal), Zn Sulfate Height 5 ft 5 in Weight 137.438 kg [place] Body Weight (kg) 56.81 BMI 50.4 Weight change and time frame No new weights recorded at time of assessment Weight Status Morbidly Obese Subjective/Other Information Pt is intubated/sedated - continues BM: 03/18 MD note 03/19: okay to restart TF at 10ml advance 10ml/8hr as tolerated to goal. RN note: vomited 03/18 TF held for aspiration check. TF currently at 20ml/hr advancing as tolerated. Percent of energy/protein needs met: TF at goal will meet 75% or greater of minimal EEN Burn Absent Trauma Absent GI Symptoms Vomiting Difficulty In Swallowing Food Allergy No Skin Integrity/Comment No complications reported Current % PO Other Minimum of two criteria No #1 Nutrition Diagnosis Swallowing difficulty Comments: 03/17: intubation/sedation/TF continues 03/19: intubation/sedation/TF continues Etiology SOB, respiratory failure As Evidenced by Signs and Symptoms intubated/sedated (03/14) Diagnosis Progress(for reassessment Continues documentation) Is patient on ventilator? Yes Is Patient Ambulatory and/or Out of Bed No REE-([facility]-confined to bed) 2515.536 Kcal/Kg value to use for calculation 15 Approximate Energy Requirements Using 2061 kcal/Kg Calculation Used for Recommendations Kcal/kg Additional Notes Protein 0.6g/kg or greater @ 137g or greater Fluids: 1ml/kcal or per MD Nutrition Intervention Change Diet Order: NPO Nutrition Support: 03/19: Nepro @ 44ml/hr (held r/ t vomiting: restarted at 10ml/ hr advancing to goal) Flush: 155ml/4hr Total free H2O/day: TF@goal + flush = 1700ml Kcal 1,900 Protein (gm) 86 Carbohydrates (gm) 170 Fat (gm) 101 Fluid (mL) 767 Fiber (gm) 13 Goal #1 TF started and tolerated by f/ u 03/17 met, changing to nepro 03/19: nepro, post vomiting event, TF restarted @10ml advancing as tolerated. Goal #2 TF at goal by f/u 03/19: restarted at 10ml/hr advancing to goal. Currently at 20ml/hr. Follow-Up By: 03/23/21 Additional Comments f/u: TF tolerance, vent status
[2021-03-20] MEDS: ceFAZolin/NS 1 GM/50 ML 1 GM/50 ML BAG IV SCH (19:28)
[2021-03-21] MEDS: SENNOSIDES/DOCUSATE SODIUM 8.6/50 MG TAB FEEDTUBE SCH ×3 (00:51→21:36)
[2021-03-21] MEDS: METOCLOPRAMIDE 10 MG/2 ML INJ IV SCH ×4 (00:51→21:38)
[2021-03-21] MEDS: FAMOTIDINE 10 MG TAB PO SCH ×3 (00:51→21:36)
[2021-03-21] MEDS: ASCORBIC ACID 500 MG TAB PO SCH ×3 (00:51→21:36)
[2021-03-21] MEDS: fentaNYL DRIP Premix 2,000 MCG/100 ML BAG IV SCH ×6 (00:51→23:58)
[2021-03-21] MEDS: HEPARIN 5,000 UNIT/1 ML VIAL SUB-Q SCH ×3 (00:54→21:34)
[2021-03-21] MEDS: ZINC SULFATE 220 MG CAP PO SCH ×3 (00:54→21:36)
[2021-03-21] MEDS: IPRATROPIUM/ALBUTEROL SULFATE 3 ML AMPUL.NEB IH SCH ×4 (03:23→19:18)
[2021-03-21] MEDS: INSULIN LISPRO 100 UNIT/ML SUB-Q SCH ×2 (05:48→12:30)
[2021-03-21 07:46] LABS: Hematocrit 28.6 % (30.3-42.9); Hemoglobin 9.5 gm/dl (10.1-14.3); Mean Corpuscular HGB Conc 33 % (30-34); Mean Corpuscular Volume 84 fl (79-97); Platelet Count 107 K/mm3 (140-440); Red Blood Count 3.41 M/mm3 (3.65-5.03); Red Cell Distribution Width 17.4 % (13.2-15.2)
[2021-03-21 08:01] LABS: Calcium 8.6 mg/dL (8.4-10.2)
--- NOTE | 2021-03-21 09:32 | XRay Report ---
CHEST 1 VIEW KUB INDICATION: NGT placement verification. COMPARISON: 3 days prior FINDINGS: SUPPORT DEVICES: NG tube tip is in the distal stomach in satisfactory position. Support devices in th e chest are unchanged and remain satisfactory. HEART: Within normal limits. LUNGS/PLEURA: Mild to moderate patchy multifocal airspace disease is present, worsened. ADDITIONAL FINDINGS: Nonobstructive bowel gas pattern. IMPRESSION: 1. Support devices as above. 2. Worsened lung findings. Signer Name: Jens Molina MD Signed: 03/21/2021 9:28 AM Workstation Name: [id number]
--- NOTE | 2021-03-21 10:14 | Progress Note ---
Subjective Principal diagnosis: Ac hypoxemic resp failure; AE-Asthma; SAI; Crohn's; COVID- 19; Pneumonia Interval history: Patient was seen today for follow-up of multiple renal related issues patient remains critically ill in the ICU Has had nearly 3 [facility] dialysis yesterday Postdialysis BUN dropped from 63-43 Interdisciplinary notes that also reviewed Events of 24 hours vitals labs intake output medications were reviewed Past medical history: Reviewed Family history: Reviewed Social history: Reviewed Allergies: Reviewed Physical examination: Vitals: Reviewed HEENT: No pallor or icterus oral mucosa moist Neck: Supple no JVD no thyromegaly Chest: Bilateral clear to auscultation anteriorly Heart: Regular rate and rhythm S1-S2 heard no S3-S4 Abdomen: Soft nontender no voluntary guarding rigidity rebound Extremity: Dry skin less than 1+ peripheral edema Psychiatric: No evidence of agitation and aggression noted Dermatology: No petechial rashes Labs and x-rays: Reviewed from today Assessment and plan #acute kidney injury: Dialysis dependent, will place her on hemodialysis from tomorrow Monday and Monday additional treatments can be given if needed Postdialysis BUN dropped to 43, 63 predialysis, will need to increase the duration of treatment time, monitor labs closely, Patient will need hemodialysis 4 hours every other day effective tomorrow #As of today patient's hemoglobin is 9.5 platelet count 107,000, BUN 60 creatinine 7.7 potassium is 4.8, We'll continue to follow and make recommendation for renal standpoint #Respiratory failure Covid 19 infection currently intubated Likely etiology of renal failure appears to be acute tubal necrosis, other factors such as Covid 19 infection #Hyperphosphatemia to be monitored Dialysis has been initiated #Hyponatremia: To monitor and follow #Overall prognosis remains guarded Objective - Vital Signs Vital signs: Vital Signs - 12hr 03/20/21 03/20/21 03/20/21 23:15 23:30 23:45 Temperature Pulse Rate 105 H 105 H 104 H Pulse Rate [ Anterior Bilateral Throughout] Pulse Rate [ From Monitor] Respiratory 25 H 21 23 Rate Respiratory Rate [Anterior Bilateral Throughout] Blood Pressure 105/50 107/51 104/41 O2 Sat by Pulse 97 98 96 Oximetry 03/21/21 03/21/21 03/21/21 00:00 00:15 00:30 Temperature 99.3 F Pulse Rate 105 H 104 H 105 H Pulse Rate [ Anterior Bilateral Throughout] Pulse Rate [ 105 H From Monitor] Respiratory 23 23 23 Rate Respiratory Rate [Anterior Bilateral Throughout] Blood Pressure 108/53 112/58 126/78 O2 Sat by Pulse 98 100 100 Oximetry 03/21/21 03/21/21 03/21/21 00:45 01:00 EST 01:15 EST Temperature Pulse Rate 107 H 102 H 102 H Pulse Rate [ Anterior Bilateral Throughout] Pulse Rate [ From Monitor] Respiratory 21 21 22 Rate Respiratory Rate [Anterior Bilateral Throughout] Blood Pressure 130/84 95/45 109/57 O2 Sat by Pulse 100 98 98 Oximetry 03/21/21 03/21/21 03/21/21 01:30 EST 01:45 EST 02:00 Temperature Pulse Rate 103 H 99 H 99 H Pulse Rate [ Anterior Bilateral Throughout] Pulse Rate [ From Monitor] Respiratory 19 22 19 Rate Respiratory Rate [Anterior Bilateral Throughout] Blood Pressure 106/59 88/49 101/60 O2 Sat by Pulse 97 96 98 Oximetry 03/21/21 03/21/21 03/21/21 02:15 02:30 02:44 Temperature 99.1 F Pulse Rate 101 H 100 H Pulse Rate [ Anterior Bilateral Throughout] Pulse Rate [ From Monitor] Respiratory 23 22 Rate Respiratory Rate [Anterior Bilateral Throughout] Blood Pressure 103/57 97/54 O2 Sat by Pulse 97 97 Oximetry 03/21/21 03/21/21 03/21/21 02:45 03:00 03:15 Temperature Pulse Rate 100 H 101 H 98 H Pulse Rate [ Anterior Bilateral Throughout] Pulse Rate [ From Monitor] Respiratory 21 17 21 Rate Respiratory Rate [Anterior Bilateral Throughout] Blood Pressure 105/59 99/53 107/63 O2 Sat by Pulse 99 96 98 Oximetry 03/21/21 03/21/21 03/21/21 03:30 03:45 04:00 Temperature Pulse Rate 98 H 103 H 106 H Pulse Rate [ Anterior Bilateral Throughout] Pulse Rate [ 104 H From Monitor] Respiratory 22 21 24 Rate Respiratory Rate [Anterior Bilateral Throughout] Blood Pressure 93/48 120/75 130/79 O2 Sat by Pulse 96 100 100 Oximetry 03/21/21 03/21/21 03/21/21 04:15 04:30 04:45 Temperature Pulse Rate 106 H 105 H 108 H Pulse Rate [ Anterior Bilateral Throughout] Pulse Rate [ From Monitor] Respiratory 23 25 H 27 H Rate Respiratory Rate [Anterior Bilateral Throughout] Blood Pressure 136/78 121/76 173/102 O2 Sat by Pulse 100 100 100 Oximetry 03/21/21 03/21/21 03/21/21 05:00 05:15 05:30 Temperature Pulse Rate 105 H 105 H 106 H Pulse Rate [ Anterior Bilateral Throughout] Pulse Rate [ From Monitor] Respiratory 24 26 H 28 H Rate Respiratory Rate [Anterior Bilateral Throughout] Blood Pressure 186/90 164/83 133/78 O2 Sat by Pulse 100 98 96 Oximetry 03/21/21 03/21/21 03/21/21 05:45 06:00 06:15 Temperature Pulse Rate 104 H 102 H 101 H Pulse Rate [ Anterior Bilateral Throughout] Pulse Rate [ From Monitor] Respiratory 23 22 22 Rate Respiratory Rate [Anterior Bilateral Throughout] Blood Pressure 119/57 134/51 141/69 O2 Sat by Pulse 94 93 97 Oximetry 03/21/21 03/21/21 03/21/21 06:30 06:46 07:00 Temperature Pulse Rate 103 H 103 H 108 H Pulse Rate [ Anterior Bilateral Throughout] Pulse Rate [ From Monitor] Respiratory 25 H 24 25 H Rate Respiratory Rate [Anterior Bilateral Throughout] Blood Pressure 118/68 101/77 101/77 O2 Sat by Pulse 97 99 100 Oximetry 03/21/21 03/21/21 03/21/21 07:15 07:30 07:45 Temperature Pulse Rate 112 H 116 H 117 H Pulse Rate [ Anterior Bilateral Throughout] Pulse Rate [ From Monitor] Respiratory 33 H 42 H 38 H Rate Respiratory Rate [Anterior Bilateral Throughout] Blood Pressure 196/118 203/122 219/133 O2 Sat by Pulse 97 93 95 Oximetry 03/21/21 03/21/21 03/21/21 08:00 08:16 08:23 Temperature 100.5 F H Pulse Rate 118 H 127 H 132 H Pulse Rate [ 131 H Anterior Bilateral Throughout] Pulse Rate [ 104 H From Monitor] Respiratory 38 H 41 H Rate Respiratory 34 H Rate [Anterior Bilateral Throughout] Blood Pressure 207/134 266/145 130/50 O2 Sat by Pulse 90 89 97 Oximetry 03/21/21 03/21/21 03/21/21 08:30 08:46 09:00 Temperature Pulse Rate 131 H 134 H 130 H Pulse Rate [ Anterior Bilateral Throughout] Pulse Rate [ From Monitor] Respiratory 38 H 34 H 21 Rate Respiratory Rate [Anterior Bilateral Throughout] Blood Pressure 264/130 175/62 149/75 O2 Sat by Pulse 86 82 L 91 Oximetry 03/21/21 03/21/21 03/21/21 09:15 09:30 09:46 Temperature Pulse Rate 134 H 130 H 127 H Pulse Rate [ Anterior Bilateral Throughout] Pulse Rate [ From Monitor] Respiratory 33 H 34 H 30 H Rate Respiratory Rate [Anterior Bilateral Throughout] Blood Pressure 130/50 151/65 148/53 O2 Sat by Pulse 94 95 97 Oximetry 03/21/21 10:00 Temperature Pulse Rate 126 H Pulse Rate [ Anterior Bilateral Throughout] Pulse Rate [ From Monitor] Respiratory 33 H Rate Respiratory Rate [Anterior Bilateral Throughout] Blood Pressure 148/47 O2 Sat by Pulse 95 Oximetry - Lab 03/21/21 06:58 03/21/21 06:58 Most recent lab results ABG pH 7.270 (7.320-7.450) L 03/21/21 Unknown ABG pCO2 57.2 mm Hg 03/20/21 04:37 ABG pO2 87.3 mm Hg (80.0-90.0) 03/20/21 04:37 ABG HCO3 27.9 mmol/L (20.0-26.0) H 03/20/21 04:37 ABG O2 Saturation 92.8 (0-100) 03/21/21 Unknown Calcium 8.6 mg/dL (8.4-10.2) 03/21/21 06:58 Phosphorus 8.60 mg/dL (2.5-4.5) H 03/20/21 04:00 Magnesium 2.20 mg/dL (1.7-2.3) 03/20/21 04:00 Urine Creatinine 40.1 mg/dL (0.1-20.0) H 03/14/21 17:50 Urine Sodium 124 mmol/L 03/14/21 17:50 Medications & Allergies - Medications Allergies/Adverse Reactions: Allergies acetaminophen [From Percocet] Adverse Reaction (Verified 03/13/21 12:45) Swelling hydrocodone bitartrate [From Vicodin] Adverse Reaction (Verified 03/13/21 12:45) Swelling oxycodone HCl [From Percocet] Adverse Reaction (Verified 03/13/21 12:45) Swelling Home Medications: Home Medications Medication Instructions Recorded Confirmed Last Taken Type Chlorhexidine Mouthwash [Peridex] 15 ml MM BID #1 bottle 10/11/20 03/13/21 Unknown Rx Clindamycin [Clindamycin CAP] 300 mg PO Q8H #21 cap 10/11/20 03/13/21 Unknown Rx Naproxen 500 mg PO Q12H PRN #12 tablet 10/11/20 03/13/21 Unknown Rx Butalb/Acetamin/Caff 50-325-40 1 - 2 tab PO Q6HR PRN #15 tab 12/05/20 03/13/21 Unknown Rx [Fioricet 50-325-40] Famotidine [Pepcid] 20 mg PO BID #30 tablet 12/05/20 03/13/21 Unknown Rx Ketorolac [Toradol] 10 mg PO Q8H PRN #20 tablet 12/05/20 03/13/21 Unknown Rx Ondansetron [Zofran Odt] 4 mg PO Q6HR PRN #20 tab.rapdis 12/05/20 03/13/21 Unknown Rx Albuterol Sulfate [Proair 90 mcg IH Q4HR PRN #2 [email or web address] 01/01/21 03/13/21 Unknown Rx Respiclick] Mupirocin [Bactroban 2% OINT] 1 applic TP BID 7 Days #1 tube 01/01/21 03/13/21 Unknown Rx Triamcinolone Aceton 0.1% (Nf) 1 applic TP BID 14 Days #1 tube 01/01/21 03/13/21 Unknown Rx [Kenalog (NF)] predniSONE [Deltasone] 40 mg PO QDAY #8 tab 01/01/21 03/13/21 Unknown Rx Active Medications: Generic Name Dose Route Start Last Admin Trade Name Freq PRN Reason Stop Dose Admin Acetaminophen 650 mg 03/13/21 19:30 Acetaminophen 325 Mg Tab PO Q4H PRN Pain MILD(1-3)/Fever >100.5/SALAS Acetylcysteine 200 mg 03/19/21 14:00 Acetylcysteine 20% 200 Mg/1 Ml *For Inhalation Use* INHALATION Q6HRT INESSA Albuterol 2.5 mg 03/19/21 00:53 Albuterol 2.5 Mg/3 Ml Nebu IH Q4HRT PRN Shortness Of Breath Albuterol/Ipratropium 1 ampul 03/19/21 08:00 03/21/21 08:23 Ipratropium/Albuterol Sulfate 3 Ml Ampul.Neb IH 1 ampul Q6HRT INESSA Administration Lipase/Protease/Amylase 1 each 03/15/21 11:42 Lipase 10,500/Protease 25,000/Amylase 43,750 (Units) Dr Cap FEEDTUBE PRN PRN For Clogged Feeding Tube Ascorbic Acid 500 mg 03/14/21 22:00 03/21/21 00:51 Ascorbic Acid 500 Mg Tab PO 500 mg BID INESSA Administration Dexamethasone 6 mg 03/16/21 10:00 03/20/21 12:41 Dexamethasone 4 Mg/Ml Vial IV 03/23/21 10:01 6 mg Q24H INESSA Administration Dextrose 50 ml 03/14/21 11:02 03/15/21 11:40 Dextrose 50% In Water (25gm) 50 Ml Syringe IV 50 ml Q30MIN PRN Administration Hypoglycemia Protocol Famotidine 10 mg 03/17/21 22:00 03/21/21 00:51 Famotidine 10 Mg Tab PO 10 mg BID INESSA Administration Fentanyl 50 mcg 03/15/21 10:43 Fentanyl 100 Mcg/2 Ml Inj IV Q10MIN PRN ANALGESIA Heparin Sodium (Porcine) 7,500 unit 03/18/21 10:00 03/21/21 00:54 Heparin 5,000 Unit/1 Ml Vial SUB-Q 7,500 unit Q12HR INESSA Administration Hydralazine HCl 10 mg 03/15/21 10:10 03/15/21 10:32 Hydralazine 20 Mg/1 Ml Inj IV 10 mg Q4HR PRN Administration Hypertension Hydrophilic Ointment 1 applic 03/14/21 17:50 Lip Therapy Vaseline TP Q2HR PRN Dry Lips Propofol 1,000 mg in 100 mls @ 4.123 mls/hr 03/15/21 11:00 03/21/21 05:52 Diprivan 10 Mg/Ml IV 15 mcg/kg/min TITR INESSA 12.369 mls/hr Titration Protocol 5 MCG/KG/MIN Fentanyl Citrate 2,000 mcg in 100 mls @ 6.872 mls/hr 03/15/21 11:00 03/21/21 05:51 Fentanyl Drip Premix IV 3 mcg/kg/hr TITR INESSA 20.616 mls/hr Administration Protocol 1 MCG/KG/HR Sodium Chloride 500 mls @ 1 mls/hr 03/16/21 17:19 Nacl 0.9% 500 Ml IV DIRECT PRN ARTERIAL LINE FLUSH Sodium Chloride 100 mls @ 999 mls/hr 03/19/21 08:30 Nacl 0.9% IV KARLOS PRN Hypotension Cefazolin Sodium 1 gm in 50 mls @ 100 mls/hr 03/19/21 16:00 03/20/21 19:28 Ancef/Ns 1 Gm/50 Ml IV 100 mls/hr Q24H INESSA Administration Protocol Sodium Chloride 100 mls @ 999 mls/hr 03/20/21 10:54 Nacl 0.9% IV KARLOS PRN Hypotension Insulin Human Lispro 0 unit 03/14/21 12:00 03/21/21 05:48 Insulin Lispro 100 Unit/Ml SUB-Q Not Given Q6HR [facility] Protocol Lorazepam 1 mg 03/13/21 19:40 03/18/21 14:11 Lorazepam 2 Mg/Ml Vial IV 1 mg Q4H PRN Administration Anxiety Metoclopramide HCl 10 mg 03/19/21 13:00 03/21/21 05:56 Metoclopramide 10 Mg/2 Ml Inj IV 10 mg Q8H INESSA Administration Multi-Ingred Cream/Lotion/Oil/Oint 1 applic 03/14/21 17:50 Mineral Oil/Petrolatum, White Ophth Oint 3.5 Gm OU Q4HR PRN Dry Eye(s) Ondansetron HCl 4 mg 03/13/21 19:30 03/13/21 22:29 Ondansetron 4 Mg/2 Ml Inj IV 4 mg Q8H PRN Administration Nausea And Vomiting Senna/Docusate Sodium 1 tab 03/14/21 22:00 03/21/21 00:51 Sennosides/Docusate Sodium 8.6/50 Mg Tab FEEDTUBE 1 tab BID INESSA Administration Simple Syrup 15 ml 03/15/21 11:42 Simple Syrup 15 Ml FEEDTUBE PRN PRN Hypoglycemia Simple Syrup 30 ml 03/15/21 11:42 Simple Syrup 15 Ml FEEDTUBE PRN PRN Hypoglycemia Sodium Bicarbonate 325 mg 03/15/21 11:42 Sodium Bicarbonate 325 Mg Tab FEEDTUBE PRN PRN For Clogged Feeding Tube Sodium Chloride 10 ml 03/13/21 22:00 03/21/21 00:53 Sodium Chloride 0.9% 10 Ml Flush Syringe IV 10 ml BID INESSA Administration Sodium Chloride 10 ml 03/13/21 19:30 Sodium Chloride 0.9% 10 Ml Flush Syringe IV PRN PRN LINE FLUSH Zinc Sulfate 220 mg 03/14/21 22:00 03/21/21 00:54 Zinc Sulfate 220 Mg Cap PO 220 mg BID INESSA Administration
[2021-03-21] MEDS: dexAMETHasone 4 MG/ML VIAL IV SCH (11:00)
[2021-03-21] MEDS: ONDANSETRON 4 MG/2 ML INJ IV PRN (12:05)
--- NOTE | 2021-03-21 14:24 | Progress Note ---
Assessment and Plan Acute hypoxemic respiratory failure Acute asthma exacerbation Morbid obesity Crohn's disease Metabolic acidosis Acute kidney injury Coronavirus infection Pneumonia (CAP) Oropharyngeal dysphagia Obesity, if not mentioned above - CXR with worsening infiltrates; suspect aspiration event's' - increased Reglan to 10 mg IV q6h (KUB with non obstructive pattern) - consider adding erythromycin for motility - will hold tube feeds X 24 hours and re-evaluate - D5W @ 50 mls/hr X 1 liter and continue accuchecks - follow Dopplers of lower extremity for VTE w/up - increased peep to 14 cm H2O - nephrology input appreciated; HD/UF for toxin and volume clearance - repeat ABG in am - continue care as below otherwise; - HD/UF sessions per nephrology prescription - vasopressors for target MAP > 65 mmHg - continue Daily SAT and SBT assessment as tolerated - continue to wean supplemental oxygen for target O2 sat's > 90% acutely - VAP bundle addressed - continue lung protective strategies - continue bronchodilators with pulmonary hygiene per RT - wean per pulmonary driven protocols otherwise - continue accuchecks with glycemic control per SSI (While critically ill target blood glucose of 140-180 mg/dL; avoid hypoglycemia) - sedation prn for target RASS 0 to -1 - avoid nephrotoxins, renally dose all medications - continue to avoid benzodiazepine's, reduce the possibility of delirium - AB's per ID rec's - prn analgesia per CPOT score - Maintenance of sleep-wake cycle, avoid delirium - continue enteral nutritional support at goal rate as tolerated - G.I. & VTE prophylaxis - PT/OT/ROM exercises - continue mobility protocols for pressure ulcer prophylaxis - Monitor hemodynamics closely - continue other care per attending / other consultants - discharge planning ongoing concurrently COVID SPECIFIC INTERVENTIONS - Actemra ordered if available - Remdesivir as per ID/Pulmonary developed protocols (not a candidate) - continue systemic steroids for severe COVID-19 infection empirically - follow repeat COVID tests results - zinc and vitamin C supplementation - Monitor inflammatory markers per facility protocol - ferritin, Ddimer, CRP - therapeutic anticoagulation per system Protocol based on d-dimer and clinical considerations (VTE prophylaxis) - Continue contact and airborne isolation .... Re-evaluate in am & prn CONDITION: CRITICAL PROGNOSIS: GUARDED CODE STATUS: FULL CODE The high probability of a clinically significant, sudden or life-threatening deterioration of the [respiratory, cardiovascular, renal & neurologic] system(s) required my full and direct attention, intervention and personal management. The aggregate critical care time was [37] minutes without overlap. Time includes spent on; [x] Data Review and interpretation [x] Patient assessment and monitoring of vital signs [x] Documentation [x] Medication orders and management Subjective Date of service: 03/21/21 Principal diagnosis: Ac hypoxemic resp failure; AE-Asthma; SAI; Crohn's; COVID- 19; Pneumonia Interval history: Patient is seen today for: Acute hypoxemic respiratory failure; AE-Asthma; SAI; Crohn's disease; COVID-19 infection; Pneumonia (CAP) Seen and examined at bedside; 24hour events reviewed; nursing and respiratory care staff consulted; no adverse overnight events reported to me; resting in bed; episode of projectile vomiting earlier and tube feeds held; remains with ARDS; FiO2 at 90% and peep at 12; Objective Vital Signs - 12hr 03/21/21 03/21/21 03/21/21 02:30 02:44 02:45 Temperature 99.1 F Pulse Rate 100 H 100 H Pulse Rate [ Anterior Bilateral Throughout] Pulse Rate [ From Monitor] Respiratory 22 21 Rate Respiratory Rate [Anterior Bilateral Throughout] Blood Pressure 97/54 105/59 O2 Sat by Pulse 97 99 Oximetry 03/21/21 03/21/21 03/21/21 03:00 03:15 03:30 Temperature Pulse Rate 101 H 98 H 98 H Pulse Rate [ Anterior Bilateral Throughout] Pulse Rate [ From Monitor] Respiratory 17 21 22 Rate Respiratory Rate [Anterior Bilateral Throughout] Blood Pressure 99/53 107/63 93/48 O2 Sat by Pulse 96 98 96 Oximetry 03/21/21 03/21/21 03/21/21 03:45 04:00 04:15 Temperature Pulse Rate 103 H 106 H 106 H Pulse Rate [ Anterior Bilateral Throughout] Pulse Rate [ 104 H From Monitor] Respiratory 21 24 23 Rate Respiratory Rate [Anterior Bilateral Throughout] Blood Pressure 120/75 130/79 136/78 O2 Sat by Pulse 100 100 100 Oximetry 03/21/21 03/21/21 03/21/21 04:30 04:45 05:00 Temperature Pulse Rate 105 H 108 H 105 H Pulse Rate [ Anterior Bilateral Throughout] Pulse Rate [ From Monitor] Respiratory 25 H 27 H 24 Rate Respiratory Rate [Anterior Bilateral Throughout] Blood Pressure 121/76 173/102 186/90 O2 Sat by Pulse 100 100 100 Oximetry 03/21/21 03/21/21 03/21/21 05:15 05:30 05:45 Temperature Pulse Rate 105 H 106 H 104 H Pulse Rate [ Anterior Bilateral Throughout] Pulse Rate [ From Monitor] Respiratory 26 H 28 H 23 Rate Respiratory Rate [Anterior Bilateral Throughout] Blood Pressure 164/83 133/78 119/57 O2 Sat by Pulse 98 96 94 Oximetry 03/21/21 03/21/21 03/21/21 06:00 06:15 06:30 Temperature Pulse Rate 102 H 101 H 103 H Pulse Rate [ Anterior Bilateral Throughout] Pulse Rate [ From Monitor] Respiratory 22 22 25 H Rate Respiratory Rate [Anterior Bilateral Throughout] Blood Pressure 134/51 141/69 118/68 O2 Sat by Pulse 93 97 97 Oximetry 03/21/21 03/21/21 03/21/21 06:46 07:00 07:15 Temperature Pulse Rate 103 H 108 H 112 H Pulse Rate [ Anterior Bilateral Throughout] Pulse Rate [ From Monitor] Respiratory 24 25 H 33 H Rate Respiratory Rate [Anterior Bilateral Throughout] Blood Pressure 101/77 101/77 196/118 O2 Sat by Pulse 99 100 97 Oximetry 03/21/21 03/21/21 03/21/21 07:30 07:45 08:00 Temperature 100.5 F H Pulse Rate 116 H 117 H 118 H Pulse Rate [ Anterior Bilateral Throughout] Pulse Rate [ 104 H From Monitor] Respiratory 42 H 38 H 38 H Rate Respiratory Rate [Anterior Bilateral Throughout] Blood Pressure 203/122 219/133 207/134 O2 Sat by Pulse 93 95 90 Oximetry 03/21/21 03/21/21 03/21/21 08:16 08:23 08:30 Temperature Pulse Rate 127 H 132 H 131 H Pulse Rate [ 131 H Anterior Bilateral Throughout] Pulse Rate [ From Monitor] Respiratory 41 H 38 H Rate Respiratory 34 H Rate [Anterior Bilateral Throughout] Blood Pressure 266/145 130/50 264/130 O2 Sat by Pulse 89 97 86 Oximetry 03/21/21 03/21/21 03/21/21 08:46 09:00 09:15 Temperature Pulse Rate 134 H 130 H 134 H Pulse Rate [ Anterior Bilateral Throughout] Pulse Rate [ From Monitor] Respiratory 34 H 21 33 H Rate Respiratory Rate [Anterior Bilateral Throughout] Blood Pressure 175/62 149/75 130/50 O2 Sat by Pulse 82 L 91 94 Oximetry 11/12/0203/21/21 03/21/21 09:30 09:46 10:00 Temperature Pulse Rate 130 H 127 H 126 H Pulse Rate [ Anterior Bilateral Throughout] Pulse Rate [ From Monitor] Respiratory 34 H 30 H 33 H Rate Respiratory Rate [Anterior Bilateral Throughout] Blood Pressure 151/65 148/53 148/47 O2 Sat by Pulse 95 97 95 Oximetry 03/21/21 03/21/21 11:20 12:00 Temperature 99.0 F Pulse Rate 119 H Pulse Rate [ Anterior Bilateral Throughout] Pulse Rate [ From Monitor] Respiratory Rate Respiratory Rate [Anterior Bilateral Throughout] Blood Pressure 134/71 O2 Sat by Pulse 95 Oximetry Constitutional: no acute distress, other (morbidly obese female with mild ventilator dyssynchrony) Eyes: non-icteric ENT: oropharynx moist, other (ETT 26 cm BALJINDER) Neck: supple, no lymphadenopathy, no JVD, other (large circumference) Effort: mildly labored Ascultation: Bilateral: diminished breath sounds, rhonchi Percussion: Bilateral: not dull Cardiovascular: regular rate and rhythm Gastrointestinal: normoactive bowel sounds, soft, non-tender, non-distended (protuberant) Integumentary: normal Extremities: no cyanosis, no edema, pulses normal, no ischemia or petechiae Neurologic: non-focal exam (grossly), pupils equal and round, CN II-XII normal, motor strength normal and, other (moves all extremities spontaneously) Psychiatric: other (unasble to assess) CBC and BMP: 03/21/21 06:58 03/21/21 06:58 ABG, PT/INR, D-dimer: ABG ABG pH 7.270 (7.320-7.450) L 03/21/21 Unknown POC ABG pCO2 58.7 mmHg (32.0-48.0) H 03/21/21 Unknown ABG pCO2 57.2 mm Hg 03/20/21 04:37 POC ABG pO2 76.9 mmHg (83-108) L 03/21/21 Unknown ABG pO2 87.3 mm Hg (80.0-90.0) 03/20/21 04:37 POC ABG HCO3 26.3 03/21/21 Unknown ABG O2 Saturation 92.8 (0-100) 03/21/21 Unknown PT/INR, D-dimer PT 13.1 Sec. (12.2-14.9) 03/13/21 13:26 INR 0.89 (0.87-1.13) 03/13/21 13:26 D-Dimer > 37306 ng/mlDDU (0-234) H 03/20/21 04:00 Abnormal lab findings: Abnormal Labs 03/13/21 03/13/21 03/13/21 13:26 13:26 15:40 WBC RBC Hgb Hct MCH 27 L RDW 17.0 H Plt Count Lymph % (Auto) [place] # (Auto) Seg Neutrophils % Seg Neutrophils # D-Dimer ABG pH POC ABG pCO2 POC ABG pO2 ABG pO2 ABG HCO3 ABG O2 Saturation ABG Base Excess ABG Hemoglobin ABG Oxyhemoglobin ABG Sodium ABG Potassium ABG Glucose Oxyhemoglobin Carboxyhemoglobin Sodium 136 L Potassium Chloride Carbon Dioxide BUN Creatinine Glucose 125 H 130 H POC Glucose Hemoglobin A1c Calcium Phosphorus Magnesium Lactate Dehydrogenase 235 H C-Reactive Protein 4.30 H Total Protein Albumin Triglycerides Arterial Blood Glucose Arterial Blood Ionized Calcium Urine Creatinine Random Vancomycin Coronavirus (PCR) 03/13/21 03/14/21 03/14/21 21:33 03:35 06:21 WBC 20.0 H RBC Hgb Hct MCH 27 L RDW 17.5 H Plt Count Lymph % (Auto) 7.8 L [place] # (Auto) 1.3 H Seg Neutrophils % 85.4 H Seg Neutrophils # 17.1 H D-Dimer ABG pH 7.323 L 7.234 L POC ABG pCO2 POC ABG pO2 ABG pO2 69.8 L ABG HCO3 ABG O2 Saturation 92.9 L 94.9 L ABG Base Excess -3.3 L -5.4 L ABG Hemoglobin ABG Oxyhemoglobin ABG Sodium ABG Potassium ABG Glucose Oxyhemoglobin 91.2 L 93.2 L Carboxyhemoglobin Sodium Potassium Chloride Carbon Dioxide BUN Creatinine Glucose POC Glucose Hemoglobin A1c Calcium Phosphorus Magnesium Lactate Dehydrogenase C-Reactive Protein Total Protein Albumin Triglycerides Arterial Blood Glucose Arterial Blood Ionized Calcium Urine Creatinine Random Vancomycin Coronavirus (PCR) 03/14/21 03/14/21 03/14/21 06:21 07:47 11:21 WBC RBC Hgb Hct MCH RDW Plt Count Lymph % (Auto) [place] # (Auto) Seg Neutrophils % Seg Neutrophils # D-Dimer ABG pH POC ABG pCO2 POC ABG pO2 ABG pO2 ABG HCO3 ABG O2 Saturation ABG Base Excess ABG Hemoglobin ABG Oxyhemoglobin ABG Sodium ABG Potassium ABG Glucose Oxyhemoglobin Carboxyhemoglobin Sodium 136 L 136 L Potassium 6.2 H* D 5.4 H Chloride Carbon Dioxide 21 L 21 L BUN Creatinine 1.5 H D 1.8 H Glucose 144 H 141 H POC Glucose 147 H Hemoglobin A1c Calcium Phosphorus Magnesium Lactate Dehydrogenase C-Reactive Protein Total Protein 8.7 H 9.2 H Albumin 3.8 L Triglycerides Arterial Blood Glucose Arterial Blood Ionized Calcium Urine Creatinine Random Vancomycin Coronavirus (PCR) 03/14/21 03/14/21 03/14/21 17:29 17:50 18:35 WBC RBC Hgb Hct MCH RDW Plt Count Lymph % (Auto) [place] # (Auto) Seg Neutrophils % Seg Neutrophils # D-Dimer ABG pH POC ABG pCO2 POC ABG pO2 ABG pO2 ABG HCO3 ABG O2 Saturation ABG Base Excess ABG Hemoglobin ABG Oxyhemoglobin ABG Sodium ABG Potassium ABG Glucose Oxyhemoglobin Carboxyhemoglobin Sodium 135 L Potassium 6.4 H* Chloride Carbon Dioxide 15 L BUN 26 H Creatinine 3.4 H D Glucose 165 H POC Glucose 209 H Hemoglobin A1c Calcium Phosphorus Magnesium Lactate Dehydrogenase C-Reactive Protein Total Protein Albumin Triglycerides Arterial Blood Glucose Arterial Blood Ionized Calcium Urine Creatinine 40.1 H Random Vancomycin Coronavirus (PCR) 03/14/21 03/14/21 03/14/21 18:46 22:23 23:52 WBC RBC Hgb Hct MCH RDW Plt Count Lymph % (Auto) [place] # (Auto) Seg Neutrophils % Seg Neutrophils # D-Dimer ABG pH 7.270 L POC ABG pCO2 POC ABG pO2 63.4 L ABG pO2 ABG HCO3 ABG O2 Saturation ABG Base Excess ABG Hemoglobin ABG Oxyhemoglobin 90.2 L ABG Sodium 134.9 L ABG Potassium 5.3 H ABG Glucose 134 H Oxyhemoglobin Carboxyhemoglobin Sodium 136 L Potassium 5.2 H Chloride Carbon Dioxide 20 L BUN 29 H Creatinine 3.6 H Glucose 236 H POC Glucose 128 H Hemoglobin A1c Calcium Phosphorus Magnesium Lactate Dehydrogenase C-Reactive Protein Total Protein Albumin 3.2 L Triglycerides Arterial Blood Glucose 134 H Arterial Blood Ionized Calcium Urine Creatinine Random Vancomycin Coronavirus (PCR) 03/14/21 03/15/21 03/15/21 Unknown 05:00 05:09 WBC 22.5 H RBC Hgb Hct MCH 27 L RDW 17.6 H Plt Count Lymph % (Auto) [place] # (Auto) Seg Neutrophils % Seg Neutrophils # D-Dimer ABG pH POC ABG pCO2 POC ABG pO2 ABG pO2 ABG HCO3 ABG O2 Saturation ABG Base Excess ABG Hemoglobin ABG Oxyhemoglobin ABG Sodium ABG Potassium ABG Glucose Oxyhemoglobin Carboxyhemoglobin Sodium Potassium Chloride Carbon Dioxide BUN Creatinine Glucose POC Glucose 116 H Hemoglobin A1c Calcium Phosphorus Magnesium Lactate Dehydrogenase C-Reactive Protein Total Protein Albumin Triglycerides Arterial Blood Glucose Arterial Blood Ionized Calcium Urine Creatinine Random Vancomycin Coronavirus (PCR) Positive A 03/15/21 03/15/21 03/15/21 05:09 05:09 05:09 WBC RBC Hgb Hct MCH RDW Plt Count Lymph % (Auto) [place] # (Auto) Seg Neutrophils % Seg Neutrophils # D-Dimer ABG pH POC ABG pCO2 POC ABG pO2 ABG pO2 ABG HCO3 ABG O2 Saturation ABG Base Excess ABG Hemoglobin ABG Oxyhemoglobin ABG Sodium ABG Potassium ABG Glucose Oxyhemoglobin Carboxyhemoglobin Sodium 136 L Potassium 6.5 H* D Chloride Carbon Dioxide 17 L BUN 41 H Creatinine 5.3 H Glucose 128 H POC Glucose Hemoglobin A1c 6.3 H Calcium Phosphorus Magnesium Lactate Dehydrogenase C-Reactive Protein 12.10 H Total Protein Albumin 3.1 L Triglycerides Arterial Blood Glucose Arterial Blood Ionized Calcium Urine Creatinine Random Vancomycin Coronavirus (PCR) 03/15/21 03/15/21 03/15/21 10:00 21:50 23:39 WBC RBC Hgb Hct MCH RDW Plt Count Lymph % (Auto) [place] # (Auto) Seg Neutrophils % Seg Neutrophils # D-Dimer ABG pH 7.098 L POC ABG pCO2 72.7 H POC ABG pO2 ABG pO2 162.5 H ABG HCO3 ABG O2 Saturation ABG Base Excess ABG Hemoglobin 10.1 L ABG Oxyhemoglobin ABG Sodium ABG Potassium 5.7 H ABG Glucose Oxyhemoglobin Carboxyhemoglobin 0.4 L Sodium Potassium Chloride Carbon Dioxide BUN Creatinine Glucose POC Glucose 156 H Hemoglobin A1c Calcium Phosphorus Magnesium Lactate Dehydrogenase C-Reactive Protein Total Protein Albumin Triglycerides Arterial Blood Glucose Arterial Blood Ionized Calcium Urine Creatinine Random Vancomycin Coronavirus (PCR) 03/16/21 03/16/21 03/16/21 05:00 05:30 05:30 WBC 16.7 H RBC 3.59 L Hgb 9.6 L Hct 30.1 L MCH 27 L RDW 17.5 H Plt Count Lymph % (Auto) [place] # (Auto) Seg Neutrophils % Seg Neutrophils # D-Dimer ABG pH POC ABG pCO2 POC ABG pO2 ABG pO2 ABG HCO3 ABG O2 Saturation ABG Base Excess ABG Hemoglobin ABG Oxyhemoglobin ABG Sodium ABG Potassium ABG Glucose Oxyhemoglobin Carboxyhemoglobin Sodium Potassium Chloride Carbon Dioxide BUN 46 H Creatinine 6.2 H Glucose 131 H POC Glucose Hemoglobin A1c Calcium Phosphorus 6.00 H D Magnesium Lactate Dehydrogenase 318 H C-Reactive Protein 18.60 H Total Protein Albumin 3.0 L Triglycerides Arterial Blood Glucose Arterial Blood Ionized Calcium Urine Creatinine Random Vancomycin Coronavirus (PCR) 03/16/21 03/16/21 03/16/21 05:51 06:37 08:58 WBC RBC Hgb Hct MCH RDW Plt Count Lymph % (Auto) [place] # (Auto) Seg Neutrophils % Seg Neutrophils # D-Dimer 3041.12 H ABG pH POC ABG pCO2 POC ABG pO2 ABG pO2 141.5 H ABG HCO3 ABG O2 Saturation ABG Base Excess ABG Hemoglobin 9.7 L ABG Oxyhemoglobin ABG Sodium ABG Potassium ABG Glucose Oxyhemoglobin Carboxyhemoglobin Sodium Potassium Chloride Carbon Dioxide BUN Creatinine Glucose POC Glucose 126 H Hemoglobin A1c Calcium Phosphorus Magnesium Lactate Dehydrogenase C-Reactive Protein Total Protein Albumin Triglycerides Arterial Blood Glucose Arterial Blood Ionized Calcium Urine Creatinine Random Vancomycin Coronavirus (PCR) 03/16/21 03/16/21 03/16/21 12:11 16:51 21:00 WBC RBC Hgb Hct MCH RDW Plt Count Lymph % (Auto) [place] # (Auto) Seg Neutrophils % Seg Neutrophils # D-Dimer ABG pH 7.239 L POC ABG pCO2 61.5 H POC ABG pO2 80.8 L ABG pO2 ABG HCO3 ABG O2 Saturation ABG Base Excess ABG Hemoglobin 11.4 L ABG Oxyhemoglobin 93.5 L ABG Sodium ABG Potassium 5.4 H ABG Glucose 137 H Oxyhemoglobin Carboxyhemoglobin 0.2 L Sodium Potassium Chloride Carbon Dioxide BUN Creatinine Glucose POC Glucose 156 H 133 H Hemoglobin A1c Calcium Phosphorus Magnesium Lactate Dehydrogenase C-Reactive Protein Total Protein Albumin Triglycerides Arterial Blood Glucose 137 H Arterial Blood Ionized Calcium Urine Creatinine Random Vancomycin Coronavirus (PCR) 03/16/21 03/17/2121 23:42 05:23 05:23 WBC 18.4 H RBC Hgb Hct MCH 27 L RDW 17.4 H Plt Count Lymph % (Auto) [place] # (Auto) Seg Neutrophils % Seg Neutrophils # D-Dimer ABG pH POC ABG pCO2 POC ABG pO2 ABG pO2 ABG HCO3 ABG O2 Saturation ABG Base Excess ABG Hemoglobin ABG Oxyhemoglobin ABG Sodium ABG Potassium ABG Glucose Oxyhemoglobin Carboxyhemoglobin Sodium Potassium 5.2 H Chloride Carbon Dioxide 21 L BUN 79 H Creatinine 8.6 H Glucose 124 H POC Glucose 133 H Hemoglobin A1c Calcium Phosphorus Magnesium Lactate Dehydrogenase C-Reactive Protein Total Protein Albumin 3.2 L Triglycerides 285 H Arterial Blood Glucose Arterial Blood Ionized Calcium Urine Creatinine Random Vancomycin Coronavirus (PCR) 03/17/21 03/17/21 03/17/21 05:23 10:48 12:20 WBC RBC Hgb Hct MCH RDW Plt Count Lymph % (Auto) [place] # (Auto) Seg Neutrophils % Seg Neutrophils # D-Dimer ABG pH 7.294 L POC ABG pCO2 POC ABG pO2 ABG pO2 90.3 H ABG HCO3 ABG O2 Saturation ABG Base Excess ABG Hemoglobin 9.9 L ABG Oxyhemoglobin ABG Sodium ABG Potassium ABG Glucose Oxyhemoglobin Carboxyhemoglobin Sodium Potassium 5.2 H Chloride Carbon Dioxide 21 L BUN 79 H Creatinine 8.4 H Glucose 125 H POC Glucose 171 H Hemoglobin A1c Calcium Phosphorus 9.90 H D Magnesium 2.40 H Lactate Dehydrogenase C-Reactive Protein Total Protein Albumin Triglycerides Arterial Blood Glucose Arterial Blood Ionized Calcium Urine Creatinine Random Vancomycin Coronavirus (PCR) 03/17/21 03/17/21 03/18/21 17:24 21:00 04:30 WBC RBC Hgb Hct MCH RDW Plt Count Lymph % (Auto) [place] # (Auto) Seg Neutrophils % Seg Neutrophils # D-Dimer 9953.09 H ABG pH 7.310 L POC ABG pCO2 54.5 H POC ABG pO2 62.3 L ABG pO2 ABG HCO3 ABG O2 Saturation ABG Base Excess ABG Hemoglobin 10.2 L ABG Oxyhemoglobin 88.6 L ABG Sodium ABG Potassium 4.7 H ABG Glucose 99 H Oxyhemoglobin Carboxyhemoglobin 0.3 L Sodium Potassium Chloride Carbon Dioxide BUN Creatinine Glucose POC Glucose 121 H Hemoglobin A1c Calcium Phosphorus Magnesium Lactate Dehydrogenase C-Reactive Protein Total Protein Albumin Triglycerides Arterial Blood Glucose 99 H Arterial Blood Ionized Calcium 4.3 L Urine Creatinine Random Vancomycin Coronavirus (PCR) 03/18/21 03/18/21 03/18/21 04:30 04:30 11:34 WBC 12.8 H RBC 3.49 L Hgb 9.4 L Hct 29.3 L MCH 27 L RDW 17.4 H Plt Count Lymph % (Auto) [place] # (Auto) Seg Neutrophils % Seg Neutrophils # D-Dimer ABG pH POC ABG pCO2 POC ABG pO2 ABG pO2 ABG HCO3 ABG O2 Saturation ABG Base Excess ABG Hemoglobin ABG Oxyhemoglobin ABG Sodium ABG Potassium ABG Glucose Oxyhemoglobin Carboxyhemoglobin Sodium Potassium Chloride Carbon Dioxide BUN 69 H Creatinine 7.3 H Glucose POC Glucose 114 H Hemoglobin A1c Calcium 8.2 L Phosphorus 7.60 H D Magnesium Lactate Dehydrogenase 477 H C-Reactive Protein 6.90 H Total Protein Albumin Triglycerides Arterial Blood Glucose Arterial Blood Ionized Calcium Urine Creatinine Random Vancomycin Coronavirus (PCR) 03/18/21 03/19/21 03/19/21 21:44 04:13 04:13 WBC 13.7 H RBC 3.32 L Hgb 9.0 L Hct 28.1 L MCH 27 L RDW 16.9 H Plt Count Lymph % (Auto) [place] # (Auto) Seg Neutrophils % Seg Neutrophils # D-Dimer ABG pH 7.290 L POC ABG pCO2 POC ABG pO2 ABG pO2 119.7 H ABG HCO3 28.0 H ABG O2 Saturation ABG Base Excess ABG Hemoglobin 9.6 L ABG Oxyhemoglobin ABG Sodium ABG Potassium ABG Glucose Oxyhemoglobin Carboxyhemoglobin Sodium Potassium Chloride Carbon Dioxide BUN Creatinine Glucose POC Glucose Hemoglobin A1c Calcium Phosphorus Magnesium Lactate Dehydrogenase C-Reactive Protein Total Protein Albumin Triglycerides Arterial Blood Glucose Arterial Blood Ionized Calcium Urine Creatinine Random Vancomycin 43.5 H Coronavirus (PCR) 03/19/21 03/19/21 03/19/21 04:13 05:59 11:40 WBC RBC Hgb Hct MCH RDW Plt Count Lymph % (Auto) [place] # (Auto) Seg Neutrophils % Seg Neutrophils # D-Dimer ABG pH POC ABG pCO2 POC ABG pO2 ABG pO2 ABG HCO3 ABG O2 Saturation ABG Base Excess ABG Hemoglobin ABG Oxyhemoglobin ABG Sodium ABG Potassium ABG Glucose Oxyhemoglobin Carboxyhemoglobin Sodium Potassium Chloride Carbon Dioxide BUN 55 H Creatinine 7.0 H Glucose POC Glucose 116 H 145 H Hemoglobin A1c Calcium 8.1 L Phosphorus 7.90 H Magnesium Lactate Dehydrogenase C-Reactive Protein Total Protein Albumin Triglycerides Arterial Blood Glucose Arterial Blood Ionized Calcium Urine Creatinine Random Vancomycin Coronavirus (PCR) 03/19/21 03/19/21 03/20/21 17:01 23:41 04:00 WBC 15.6 H RBC 3.55 L Hgb 9.6 L Hct MCH 27 L RDW 16.8 H Plt Count 139 L Lymph % (Auto) [place] # (Auto) Seg Neutrophils % Seg Neutrophils # D-Dimer ABG pH POC ABG pCO2 POC ABG pO2 ABG pO2 ABG HCO3 ABG O2 Saturation ABG Base Excess ABG Hemoglobin ABG Oxyhemoglobin ABG Sodium ABG Potassium ABG Glucose Oxyhemoglobin Carboxyhemoglobin Sodium Potassium Chloride Carbon Dioxide BUN Creatinine Glucose POC Glucose 111 H 118 H Hemoglobin A1c Calcium Phosphorus Magnesium Lactate Dehydrogenase C-Reactive Protein Total Protein Albumin Triglycerides Arterial Blood Glucose Arterial Blood Ionized Calcium Urine Creatinine Random Vancomycin Coronavirus (PCR) 03/20/21 03/20/21 03/20/21 04:00 04:00 04:37 WBC RBC Hgb Hct MCH RDW Plt Count Lymph % (Auto) [place] # (Auto) Seg Neutrophils % Seg Neutrophils # D-Dimer > 25130 H ABG pH 7.306 L POC ABG pCO2 POC ABG pO2 ABG pO2 ABG HCO3 27.9 H ABG O2 Saturation ABG Base Excess ABG Hemoglobin 5.2 L ABG Oxyhemoglobin ABG Sodium ABG Potassium ABG Glucose Oxyhemoglobin Carboxyhemoglobin Sodium Potassium 5.2 H Chloride 97.6 L Carbon Dioxide BUN 52 H Creatinine 6.2 H Glucose 104 H POC Glucose Hemoglobin A1c Calcium Phosphorus 8.60 H Magnesium Lactate Dehydrogenase C-Reactive Protein 6.90 H Total Protein Albumin Triglycerides Arterial Blood Glucose Arterial Blood Ionized Calcium Urine Creatinine Random Vancomycin Coronavirus (PCR) 03/20/21 03/20/21 03/20/21 13:50 17:46 17:56 WBC RBC Hgb Hct MCH RDW Plt Count Lymph % (Auto) [place] # (Auto) Seg Neutrophils % Seg Neutrophils # D-Dimer ABG pH POC ABG pCO2 POC ABG pO2 ABG pO2 ABG HCO3 ABG O2 Saturation ABG Base Excess ABG Hemoglobin ABG Oxyhemoglobin ABG Sodium ABG Potassium ABG Glucose Oxyhemoglobin Carboxyhemoglobin Sodium Potassium Chloride Carbon Dioxide BUN 63 H 43 H Creatinine Glucose POC Glucose 145 H Hemoglobin A1c Calcium Phosphorus Magnesium Lactate Dehydrogenase C-Reactive Protein Total Protein Albumin Triglycerides Arterial Blood Glucose Arterial Blood Ionized Calcium Urine Creatinine Random Vancomycin Coronavirus (PCR) 03/20/21 03/21/21 03/21/21 23:18 06:58 06:58 WBC 14.4 H RBC 3.41 L Hgb 9.5 L Hct 28.6 L MCH RDW 17.4 H Plt Count 107 L Lymph % (Auto) [place] # (Auto) Seg Neutrophils % Seg Neutrophils # D-Dimer ABG pH POC ABG pCO2 POC ABG pO2 ABG pO2 ABG HCO3 ABG O2 Saturation ABG Base Excess ABG Hemoglobin ABG Oxyhemoglobin ABG Sodium ABG Potassium ABG Glucose Oxyhemoglobin Carboxyhemoglobin Sodium Potassium Chloride Carbon Dioxide BUN 60 H Creatinine 7.7 H Glucose POC Glucose 106 H Hemoglobin A1c Calcium Phosphorus Magnesium Lactate Dehydrogenase C-Reactive Protein Total Protein Albumin Triglycerides Arterial Blood Glucose Arterial Blood Ionized Calcium Urine Creatinine Random Vancomycin Coronavirus (PCR) 03/21/21 03/21/21 11:11 Unknown WBC RBC Hgb Hct MCH RDW Plt Count Lymph % (Auto) [place] # (Auto) Seg Neutrophils % Seg Neutrophils # D-Dimer ABG pH 7.270 L POC ABG pCO2 58.7 H POC ABG pO2 76.9 L ABG pO2 ABG HCO3 ABG O2 Saturation ABG Base Excess ABG Hemoglobin 9.9 L ABG Oxyhemoglobin 92.4 L ABG Sodium 135.8 L ABG Potassium 4.6 H ABG Glucose Oxyhemoglobin Carboxyhemoglobin 0.1 L Sodium Potassium Chloride Carbon Dioxide BUN Creatinine Glucose POC Glucose 109 H Hemoglobin A1c Calcium Phosphorus Magnesium Lactate Dehydrogenase C-Reactive Protein Total Protein Albumin Triglycerides Arterial Blood Glucose Arterial Blood Ionized Calcium 4.5 L Urine Creatinine Random Vancomycin Coronavirus (PCR) Allied health notes reviewed: nursing
[2021-03-21] MEDS ORDERED: DEXTROSE 5% IN WATER 1,000 ML IV SCH (15:00)
--- NOTE | 2021-03-21 15:19 | Progress Note ---
<CRISTY PASCUAL - Last Filed: 03/21/21 15:14> Assessment and Plan Assessment and plan: This is a 31-year-old female with asthma, morbid obesity and Crohn's disease admitted for COVID-19 pneumonia and and acute renal failure Neuro: Sedated -Intubated and sedated on propofol and fentanyl -RASS goal 0 to -1 -Daily SAT/SBT when appropriate -Maintain sleep-wake cycle -Avoid delirium -Bilateral wrist restraints in place for safety CV: Tachycardia, hypertension -ST on the monitor -As needed antihypertensive for SBP greater than 160 -Maintain MAP above 65 -Blood pressure monitoring per protocol -will attempt keesha again -BP support with Vasopressor -MAP > 65 mmhg Respiratory: Acute hypoxic respiratory failure, asthma exacerbation, COVID-19 pneumonia, ARDS -DuoNeb, steroids -Patient was intubated on 03/14 for respiratory distress and inability to protect airway -Intubated with 7.50 ETT at 24 at the lip -A.m. vent settings: AC R 20, TV 500, Peep 12, FiO2 100 -See RT notes for titration -CCM increased PEEP 14 -ABGs per CCM -03/21 CXR noted -VAP bundle -SPO2 monitoring -CCM/pulmonary consulted, appreciate recommendations -S/p BiPAP therapy GI: h/o MO and Crohn's disease -Nutrition consulted, appreciate recommendations -Tube feeding: Nepro -Free water 100 mL every 4 hours -BR: Senokot -PPI -24 hours +1333 -HD removed 1L yesterday -Reglan for increased -NPO : Acute kidney injury likely secondary to ATN, hyperphosphatemia -Nephrology consulted, appreciate recommendations -Vas-Cath placed 03/15 -HD initiated 03/15 -Daily weights -Strict intake and output -Avoid nephrotoxic medications -Renally dose medications -Trend BMP -Intervene for electrolytes as needed -Daily HD for now per nephrology ID: COVID-19 pneumonia, leukocytosis, Staph aureus in tracheal aspirate -Infectious disease consulted, appreciate recommendations -COVID-19 PCR positive -IV methylprednisone -Ordered Actemra per ID -Per ID patient is on a candidate for remdesivir due to renal failure -Patient received 1 dose of remdesivir on 03/14 -Prophylactic anticoagulation based on D-dimer -Azithromycin and ceftriaxone discontinued -Started on vancomycin, PKS to dose -Trend COVID-19 inflammatory markers -Isolation/droplet precautions -Vitamin C/vitamin D/zinc -03/13 BC x2 no growth to date -03/14 tracheal aspirate with Staph aureus (ID aware) -currently on Cefazolin -Monitor WBC and fever curve Heme: Leukocytosis, elevated D-dimer -Trend CBC -Transfuse hemoglobin less than 7 -Prophylactic heparin -SCDs to bilateral lower extremity while in bed -BLE duplex US pending Endo: Possible some degree of insulin resistance -Hemoglobin A1c 6.3 -SSI -Accu-Cheks every 6 -Avoid hypoglycemia -Target blood glucose while critically ill 140-180 The high probability of a clinically significant, sudden or life threatening deterioration of the [multiple] system(s) required my full and direct attention, intervention and personal management. The aggregate critical care time was [60] minutes. This time is in addition to time spent performing reported procedures but includes the following: [x] Data Review and interpretation [x] Patient assessment and monitoring of vital signs [x] Documentation [x] Medication orders and management Disposition Plan: icu Total Time Spent with Patient (Minutes): 60 History Interval history: This is a 31-year-old female with asthma, history of prior intubation x1 in 02/2019, morbid obesity and Crohn's disease who presented to the emergency department on 03/13 with complaints of severe wheezing and shortness of breath over the past 4 days which is not relieved by home nebulizer treatments or rescue inhalers, cough without fever and no loss of sense of taste or smell. Patient is currently on vaccinated for COVID-19. In the emergency department patient was placed on BiPAP given steroids magnesium Solu-Medrol with improvement, CXR shows a streak of possible pneumonia. Patient was made a COVID-19 PUI and admitted to the hospital service. Patient was initially admitted to [facility] on BiPAP and was subsequently intubated due to severe respiratory distress and inability to protect her airway. Patient was admitted with acute hypoxic respiratory failure, acute asthma exacerbation, right upper lobe pneumonia, and as a COVID-19 PUI. Hospital Course to Date: 03/14/21- Patient is s/p intubation from this morning, sedated on propofol and fentanyl RASS -3 to -4. ETT above the clavicles advanced by 2cc. Continue nebs and IV steroids per [facility]. COVID swab pending. Hyperkalemia improved, X1 dose of kayaxalate ordered. Low BP and low urine output this am, fluid bolus challenge, 500cc of NS bolus given. Continue to monitor electrolytes and renal function, repeat BMP this afternoon. 03/15: Patient's renal function noted to be significantly worse today, patient was hyperkalemic and this was medically treated. Patient initiated on hemodialysis today. Patient disease was consulted today. 03/16: No acute events reported overnight, patient received hemodialysis yesterday. Patient is currently on propofol and fentanyl. 03/17: Patient received hemodialysis today, patient is slightly acidotic on ABG however [facility] is allowing for permissive hypercapnia, tracheal aspirate with Staph aureus and ID is aware. 03/18: Patient is having high residuals today and Reglan was started, patient wi ll receive HD daily per nephrology, correct her change in FiO2 as tolerated. 03/19: HD per nephrology today, antibiotics changed to cefazolin. Patient did not tolerate tube feedings as she had high residuals this morning and they were turned off. Not restarted yet. Updated family at bedside today 03/20: HD today, ddimer noted to be >1000, Tolerating trickle TF. Stat BLE dopplar US 03/21: Patient is not tolerating TF, CXR shows worsening infiltrates, [facility] made changes to vent, TF on hold and started on IVF. Hospitalist Physical - Constitutional Vitals: Temp Pulse Resp BP Pulse Ox 99.0 F 116 H 24 84/36 90 03/21/21 12:00 03/21/21 15:00 03/21/21 13:56 03/21/21 15:00 03/21/21 15:00 General appearance: Present: no acute distress, well-nourished, obese, other (Intubated and sedated) Results - Labs CBC & Chem 7: 03/21/21 06:58 03/21/21 06:58 Labs: Laboratory Last Values WBC 14.4 K/mm3 (4.5-11.0) H 03/21/21 06:58 RBC 3.41 M/mm3 (3.65-5.03) L 03/21/21 06:58 Hgb 9.5 gm/dl (10.1-14.3) L 03/21/21 06:58 Hct 28.6 % (30.3-42.9) L 03/21/21 06:58 MCV 84 fl (79-97) 03/21/21 06:58 MCH 28 pg (28-32) 03/21/21 06:58 MCHC 33 % (30-34) 03/21/21 06:58 RDW 17.4 % (13.2-15.2) H 03/21/21 06:58 Plt Count 107 K/mm3 (140-440) L 03/21/21 06:58 Lymph % (Auto) 7.8 % (13.4-35.0) L 03/14/21 06:21 [place] % (Auto) 6.7 % (0.0-7.3) 03/14/21 06:21 Eos % (Auto) 0.0 % (0.0-4.3) 03/14/21 06:21 Baso % (Auto) 0.1 % (0.0-1.8) 03/14/21 06:21 Lymph # (Auto) 1.6 K/mm3 (1.2-5.4) 03/14/21 06:21 [place] # (Auto) 1.3 K/mm3 (0.0-0.8) H 03/14/21 06:21 Eos # (Auto) 0.0 K/mm3 (0.0-0.4) 03/14/21 06:21 Baso # (Auto) 0.0 K/mm3 (0.0-0.1) 03/14/21 06:21 Seg Neutrophils % 85.4 % (40.0-70.0) H 03/14/21 06:21 Seg Neutrophils # 17.1 K/mm3 (1.8-7.7) H 03/14/21 06:21 PT 13.1 Sec. (12.2-14.9) 03/13/21 13:26 INR 0.89 (0.87-1.13) 03/13/21 13:26 D-Dimer > 37816 ng/mlDDU (0-234) H 03/20/21 04:00 ABG pH 7.270 (7.320-7.450) L 03/21/21 Unknown POC ABG pCO2 58.7 mmHg (32.0-48.0) H 03/21/21 Unknown ABG pCO2 57.2 mm Hg 03/20/21 04:37 POC ABG pO2 76.9 mmHg (83-108) L 03/21/21 Unknown ABG pO2 87.3 mm Hg (80.0-90.0) 03/20/21 04:37 POC ABG HCO3 26.3 03/21/21 Unknown ABG HCO3 27.9 mmol/L (20.0-26.0) H 03/20/21 04:37 ABG O2 Saturation 92.8 (0-100) 03/21/21 Unknown ABG O2 Content 7.2 (0.0-44) 03/20/21 04:37 POC ABG Base Excess -1.1 03/21/21 Unknown ABG Base Excess 1.6 mmol/L (-2.0-3.0) 03/20/21 04:37 ABG Hemoglobin 9.9 (12.0-17.5) L 03/21/21 Unknown ABG Oxyhemoglobin 92.4 (94-98) L 03/21/21 Unknown ABG Carboxyhemoglobin 1.3 % (0.0-5.0) 03/20/21 04:37 ABG Methemoglobin 0.3 (0.0-1.5) 03/21/21 Unknown ABG Sodium 135.8 mmol/L (136.0-145.0) L 03/21/21 Unknown ABG Potassium 4.6 mmol/L (3.40-4.50) H 03/21/21 Unknown ABG Chloride 101.0 mmol/L (98-107) 03/21/21 Unknown ABG Glucose 90 mg/dL (65-95) 03/21/21 Unknown Oxyhemoglobin 95.3 % (95.0-99.0) 03/20/21 04:37 Carboxyhemoglobin 0.1 (0.5-1.5) L 03/21/21 Unknown FiO2 90 % 03/20/21 04:37 FiO2 % 90 03/21/21 Unknown Sodium 139 mmol/L (137-145) 03/21/21 06:58 Potassium 4.8 mmol/L (3.6-5.0) 03/21/21 06:58 Chloride 99.4 mmol/L (98-107) 03/21/21 06:58 Carbon Dioxide 22 mmol/L (22-30) 03/21/21 06:58 Anion Gap 22 mmol/L 03/21/21 06:58 BUN 60 mg/dL (7-17) H 03/21/21 06:58 Creatinine 7.7 mg/dL (0.6-1.2) H 03/21/21 06:58 Estimated GFR 7 ml/min 03/21/21 06:58 BUN/Creatinine Ratio 8 % 03/21/21 06:58 Glucose 93 mg/dL (65-100) 03/21/21 06:58 POC Glucose 109 mg/dL (70-105) H 03/21/21 11:11 Hemoglobin A1c 6.3 % (4-6) H 03/15/21 05:09 Lactic Acid 2.00 mmol/L (0.7-2.0) 03/14/21 18:47 Calcium 8.6 mg/dL (8.4-10.2) 03/21/21 06:58 Phosphorus 8.60 mg/dL (2.5-4.5) H 03/20/21 04:00 Magnesium 2.20 mg/dL (1.7-2.3) 03/20/21 04:00 Ferritin 151.6 ng/mL (10.0-200.0) 03/18/21 04:30 Total Bilirubin 0.20 mg/dL (0.1-1.2) 03/17/21 05:23 AST 35 units/L (5-40) 03/17/21 05:23 ALT 24 units/L (7-56) 03/17/21 05:23 Alkaline Phosphatase 78 units/L (35-129) 03/17/21 05:23 Lactate Dehydrogenase 477 units/L (91-180) H 03/18/21 04:30 C-Reactive Protein 6.90 mg/dL (0.00-1.30) H 03/20/21 04:00 Total Protein 6.7 g/dL (6.3-8.2) 03/17/21 05:23 Albumin 3.2 g/dL (3.9-5) L 03/17/21 05:23 Albumin/Globulin Ratio 0.9 % 03/17/21 05:23 Triglycerides 285 mg/dL (2-149) H 03/17/21 05:23 Procalcitonin < 0.05 ng/mL (<0.15) 03/13/21 15:40 HCG, Qual Negative (Negative) 03/13/21 13:26 Arterial Blood Glucose 90 mg/dL (65-95) 03/21/21 Unknown Arterial Blood Ionized Calcium 4.5 mg/dL (4.6-5.3) L 03/21/21 Unknown Urine Creatinine 40.1 mg/dL (0.1-20.0) H 03/14/21 17:50 Urine Sodium 124 mmol/L 03/14/21 17:50 Random Vancomycin 11.2 ug/mL (0-40.0) 03/20/21 04:23 Coronavirus (PCR) Positive (Negative) A 03/14/21 Unknown Hepatitis A IgM Ab Non-reactive (NonReactive) 03/15/21 05:09 Hep Bs Antigen Nonreactive (Negative) 03/15/21 05:09 Hep B Core IgM Ab Non-reactive (NonReactive) 03/15/21 05:09 Hepatitis C Antibody Non-reactive (NonReactive) 03/15/21 05:09 Microbiology: Microbiology 03/14/21 01:25 Tracheal Aspirate Sputum Culture - Preliminary Staphylococcus Aureus Bazan/IV: Voiding Method Indwelling Catheter Active Medications - Current Medications Current Medications: Generic Name Dose Route Start Last Admin Trade Name Freq PRN Reason Stop Dose Admin Acetaminophen 650 mg 03/13/21 19:30 Acetaminophen 325 Mg Tab PO Q4H PRN Pain MILD(1-3)/Fever >100.5/SALAS Acetylcysteine 200 mg 03/19/21 14:00 Acetylcysteine 20% 200 Mg/1 Ml *For Inhalation Use* INHALATION Q6HRT [facility] Albuterol 2.5 mg 03/19/21 00:53 Albuterol 2.5 Mg/3 Ml Nebu IH Q4HRT PRN Shortness Of Breath Albuterol/Ipratropium 1 ampul 03/19/21 08:00 03/21/21 13:56 Ipratropium/Albuterol Sulfate 3 Ml Ampul.Neb IH 1 ampul Q6HRT INESSA Administration Lipase/Protease/Amylase 1 each 03/15/21 11:42 Lipase 10,500/Protease 25,000/Amylase 43,750 (Units) Dr White FEEDTUBE PRN PRN For Clogged Feeding Tube Ascorbic Acid 500 mg 03/14/21 22:00 03/21/21 11:00 Ascorbic Acid 500 Mg Tab PO 500 mg BID INESSA Administration Dexamethasone 6 mg 03/16/21 10:00 03/21/21 11:00 Dexamethasone 4 Mg/Ml Vial IV 03/23/21 10:01 6 mg Q24H INESSA Administration Dextrose 50 ml 03/14/21 11:02 03/15/21 11:40 Dextrose 50% In Water (25gm) 50 Ml Syringe IV 50 ml Q30MIN PRN Administration Hypoglycemia Protocol Famotidine 10 mg 03/17/21 22:00 03/21/21 11:00 Famotidine 10 Mg Tab PO 10 mg BID INESSA Administration Fentanyl 50 mcg 03/15/21 10:43 Fentanyl 100 Mcg/2 Ml Inj IV Q10MIN PRN ANALGESIA Heparin Sodium (Porcine) 7,500 unit 03/18/21 10:00 03/21/21 11:39 Heparin 5,000 Unit/1 Ml Vial SUB-Q 7,500 unit Q12HR INESSA Administration Hydralazine HCl 10 mg 03/15/21 10:10 03/15/21 10:32 Hydralazine 20 Mg/1 Ml Inj IV 10 mg Q4HR PRN Administration Hypertension Hydrophilic Ointment 1 applic 03/14/21 17:50 Lip Therapy Vaseline TP Q2HR PRN Dry Lips Propofol 1,000 mg in 100 mls @ 4.123 mls/hr 03/15/21 11:00 03/21/21 14:01 Diprivan 10 Mg/Ml IV 15 mcg/kg/min TITR INESSA 12.369 mls/hr Administration Protocol 5 MCG/KG/MIN Fentanyl Citrate 2,000 mcg in 100 mls @ 6.872 mls/hr 03/15/21 11:00 03/21/21 14:00 Fentanyl Drip Premix IV 3 mcg/kg/hr TITR INESSA 20.616 mls/hr Administration Protocol 1 MCG/KG/HR Sodium Chloride 500 mls @ 1 mls/hr 03/16/21 17:19 Nacl 0.9% 500 Ml IV DIRECT PRN ARTERIAL LINE FLUSH Sodium Chloride 100 mls @ 999 mls/hr 03/19/21 08:30 Nacl 0.9% IV KARLOS PRN Hypotension Cefazolin Sodium 1 gm in 50 mls @ 100 mls/hr 03/19/21 16:00 03/20/21 19:28 Ancef/Ns 1 Gm/50 Ml IV 100 mls/hr Q24H INESSA Administration Protocol Sodium Chloride 100 mls @ 999 mls/hr 03/20/21 10:54 Nacl 0.9% IV KARLOS PRN Hypotension Dextrose 1,000 mls @ 50 mls/hr 03/21/21 15:00 D5w IV 03/22/21 10:59 DIRECT INESSA Vasopressin 20 unit/ Sodium 101 mls @ 9.09 mls/hr 03/21/21 16:00 Chloride IV TITR [facility] Protocol 0.03 UNITS/MIN Insulin Human Lispro 0 unit 03/14/21 12:00 03/21/21 05:48 Insulin Lispro 100 Unit/Ml SUB-Q Not Given Q6HR [facility] Protocol Lorazepam 1 mg 03/13/21 19:40 03/18/21 14:11 Lorazepam 2 Mg/Ml Vial IV 1 mg Q4H PRN Administration Anxiety Metoclopramide HCl 10 mg 03/19/21 13:00 03/21/21 05:56 Metoclopramide 10 Mg/2 Ml Inj IV 10 mg Q8H INESSA Administration Multi-Ingred Cream/Lotion/Oil/Oint 1 applic 03/14/21 17:50 Mineral Oil/Petrolatum, White Ophth Oint 3.5 Gm OU Q4HR PRN Dry Eye(s) Ondansetron HCl 4 mg 03/13/21 19:30 03/21/21 12:05 Ondansetron 4 Mg/2 Ml Inj IV 4 mg Q8H PRN Administration Nausea And Vomiting Senna/Docusate Sodium 1 tab 03/14/21 22:00 03/21/21 11:00 Sennosides/Docusate Sodium 8.6/50 Mg Tab FEEDTUBE 1 tab BID INESSA Administration Simple Syrup 15 ml 03/15/21 11:42 Simple Syrup 15 Ml FEEDTUBE PRN PRN Hypoglycemia Simple Syrup 30 ml 03/15/21 11:42 Simple Syrup 15 Ml FEEDTUBE PRN PRN Hypoglycemia Sodium Bicarbonate 325 mg 03/15/21 11:42 Sodium Bicarbonate 325 Mg Tab FEEDTUBE PRN PRN For Clogged Feeding Tube Sodium Chloride 10 ml 03/13/21 22:00 03/21/21 11:00 Sodium Chloride 0.9% 10 Ml Flush Syringe IV 10 ml BID INESSA Administration Sodium Chloride 10 ml 03/13/21 19:30 Sodium Chloride 0.9% 10 Ml Flush Syringe IV PRN PRN LINE FLUSH Zinc Sulfate 220 mg 03/14/21 22:00 03/21/21 11:00 Zinc Sulfate 220 Mg Cap PO 220 mg BID INESSA Administration Nutrition/Malnutrition Assess - Dietary Evaluation Nutrition/Malnutrition Findings: Nutrition Notes Start: 03/15/21 11:06 Freq: Status: Active Protocol: Document 03/19/21 16:31 GB (Rec: 03/19/21 16:37 GB [email or web address]) Nutrition Notes Initial or Follow up Reassessment Current Diagnosis Respiratory Failure Other Pertinent Diagnosis SOB. PMHx: asthma, morbid obesity, crohn's disease Current Diet No diet order: should be NPO - Tube Feeding Labs/Tests 03/19: BUN 55, creatinine 8.1, Ca 8.1, P 7.9 A1c 6.3 Pertinent Medications Vit C, D5(PRN), Fentanyl Citrate, Propofol 16.493ml/hr (435kcal), Zn Sulfate Height 5 ft 5 in Weight 137.438 kg [place] Body Weight (kg) 56.81 BMI 50.4 Weight change and time frame No new weights recorded at time of assessment Weight Status Morbidly Obese Subjective/Other Information Pt is intubated/sedated - continues BM: 03/18 MD note 03/19: okay to restart TF at 10ml advance 10ml/8hr as tolerated to goal. RN note: vomited 03/18 TF held for aspiration check. TF currently at 20ml/hr advancing as tolerated. Percent of energy/protein needs met: TF at goal will meet 75% or greater of minimal EEN Burn Absent Trauma Absent GI Symptoms Vomiting Difficulty In Swallowing Food Allergy No Skin Integrity/Comment No complications reported Current % PO Other Minimum of two criteria No #1 Nutrition Diagnosis Swallowing difficulty Comments: 03/17: intubation/sedation/TF continues 03/19: intubation/sedation/TF continues Etiology SOB, respiratory failure As Evidenced by Signs and Symptoms intubated/sedated (03/14) Diagnosis Progress(for reassessment Continues documentation) Is patient on ventilator? Yes Is Patient Ambulatory and/or Out of Bed No REE-([facility]-confined to bed) 2515.536 Kcal/Kg value to use for calculation 15 Approximate Energy Requirements Using 2 kcal/Kg Calculation Used for Recommendations Kcal/kg Additional Notes Protein 0.6g/kg or greater @ 137g or greater Fluids: 1ml/kcal or per Nutrition Intervention Change Diet Order: NPO Nutrition Support: 03/19: Nepro @ 44ml/hr (held r/ t vomiting: restarted at 10ml/ hr advancing to goal) Flush: 155ml/4hr Total free H2O/day: TF@goal + flush = 1700ml Kcal 1,900 Protein (gm) 86 Carbohydrates (gm) 170 Fat (gm) 101 Fluid (mL) 767 Fiber (gm) 13 Goal #1 TF started and tolerated by f/ u 03/17 met, changing to nepro 03/19: nepro, post vomiting event, TF restarted @10ml advancing as tolerated. Goal #2 TF at goal by f/u 03/19: restarted at 10ml/hr advancing to goal. Currently at 20ml/hr. Follow-Up By: 03/23/21 Additional Comments f/u: TF tolerance, vent status <SAURABH ALBRECHT - Last Filed: 03/22/21 07:25> Assessment and Plan Assessment and plan: I saw and evaluated the patient. Discussed with the nurse practitioner and agree with their findings and plan as documented in this note. Hospitalist Physical - Constitutional Vitals: Temp Pulse Resp BP Pulse Ox 100.8 F H 86 26 H 106/56 98 03/22/21 03:46 03/22/21 06:15 03/22/21 06:15 03/22/21 06:15 03/22/21 06:15 Results - Labs CBC & Chem 7: 03/21/21 06:58 03/21/21 06:58 Labs: Laboratory Last Values WBC 14.4 K/mm3 (4.5-11.0) H 03/21/21 06:58 RBC 3.41 M/mm3 (3.65-5.03) L 03/21/21 06:58 Hgb 9.5 gm/dl (10.1-14.3) L 03/21/21 06:58 Hct 28.6 % (30.3-42.9) L 03/21/21 06:58 MCV 84 fl (79-97) 03/21/21 06:58 MCH 28 pg (28-32) 03/21/21 06:58 MCHC 33 % (30-34) 03/21/21 06:58 RDW 17.4 % (13.2-15.2) H 03/21/21 06:58 Plt Count 107 K/mm3 (140-440) L 03/21/21 06:58 Lymph % (Auto) 7.8 % (13.4-35.0) L 03/14/21 06:21 [place] % (Auto) 6.7 % (0.0-7.3) 03/14/21 06:21 Eos % (Auto) 0.0 % (0.0-4.3) 03/14/21 06:21 Baso % (Auto) 0.1 % (0.0-1.8) 03/14/21 06:21 Lymph # (Auto) 1.6 K/mm3 (1.2-5.4) 03/14/21 06:21 [place] # (Auto) 1.3 K/mm3 (0.0-0.8) H 03/14/21 06:21 Eos # (Auto) 0.0 K/mm3 (0.0-0.4) 03/14/21 06:21 Baso # (Auto) 0.0 K/mm3 (0.0-0.1) 03/14/21 06:21 Seg Neutrophils % 85.4 % (40.0-70.0) H 03/14/21 06:21 Seg Neutrophils # 17.1 K/mm3 (1.8-7.7) H 03/14/21 06:21 PT 13.1 Sec. (12.2-14.9) 03/13/21 13:26 INR 0.89 (0.87-1.13) 03/13/21 13:26 D-Dimer > 58733 ng/mlDDU (0-234) H 03/20/21 04:00 ABG pH 7.206 (7.320-7.450) L 03/22/21 03:09 POC ABG pCO2 55.6 mmHg (32.0-48.0) H 03/22/21 03:09 ABG pCO2 57.2 mm Hg 03/20/21 04:37 POC ABG pO2 96.5 mmHg (83-108) 03/22/21 03:09 ABG pO2 87.3 mm Hg (80.0-90.0) 03/20/21 04:37 POC ABG HCO3 21.5 03/22/21 03:09 ABG HCO3 27.9 mmol/L (20.0-26.0) H 03/20/21 04:37 ABG O2 Saturation 96.0 (0-100) 03/22/21 03:09 ABG O2 Content 7.2 (0.0-44) 03/20/21 04:37 POC ABG Base Excess -6.3 03/22/21 03:09 ABG Base Excess 1.6 mmol/L (-2.0-3.0) 03/20/21 04:37 ABG Hemoglobin 9.0 (12.0-17.5) L 03/22/21 03:09 ABG Oxyhemoglobin 95.6 (94-98) 03/22/21 03:09 ABG Carboxyhemoglobin 1.3 % (0.0-5.0) 03/20/21 04:37 ABG Methemoglobin 0.3 (0.0-1.5) 03/22/21 03:09 ABG Sodium 123.4 mmol/L (136.0-145.0) L 03/22/21 03:09 ABG Potassium 5.6 mmol/L (3.40-4.50) H 03/22/21 03:09 ABG Chloride 98.0 mmol/L (98-107) 03/22/21 03:09 ABG Glucose 106 mg/dL (65-95) H 03/22/21 03:09 Oxyhemoglobin 95.3 % (95.0-99.0) 03/20/21 04:37 Carboxyhemoglobin 0.1 (0.5-1.5) L 03/22/21 03:09 FiO2 90 % 03/20/21 04:37 FiO2 % 90.0 03/22/21 03:09 Sodium 139 mmol/L (137-145) 03/21/21 06:58 Potassium 4.8 mmol/L (3.6-5.0) 03/21/21 06:58 Chloride 99.4 mmol/L (98-107) 03/21/21 06:58 Carbon Dioxide 22 mmol/L (22-30) 03/21/21 06:58 Anion Gap 22 mmol/L 03/21/21 06:58 BUN 60 mg/dL (7-17) H 03/21/21 06:58 Creatinine 7.7 mg/dL (0.6-1.2) H 03/21/21 06:58 Estimated GFR 7 ml/min 03/21/21 06:58 BUN/Creatinine Ratio 8 % 03/21/21 06:58 Glucose 93 mg/dL (65-100) 03/21/21 06:58 POC Glucose 101 mg/dL (70-105) 03/22/21 05:26 Hemoglobin A1c 6.3 % (4-6) H 03/15/21 05:09 Lactic Acid 2.00 mmol/L (0.7-2.0) 03/14/21 18:47 Calcium 8.6 mg/dL (8.4-10.2) 03/21/21 06:58 Phosphorus 8.60 mg/dL (2.5-4.5) H 03/20/21 04:00 Magnesium 2.20 mg/dL (1.7-2.3) 03/20/21 04:00 Ferritin 151.6 ng/mL (10.0-200.0) 03/18/21 04:30 Total Bilirubin 0.20 mg/dL (0.1-1.2) 03/17/21 05:23 AST 35 units/L (5-40) 03/17/21 05:23 ALT 24 units/L (7-56) 03/17/21 05:23 Alkaline Phosphatase 78 units/L (35-129) 03/17/21 05:23 Lactate Dehydrogenase 477 units/L (91-180) H 03/18/21 04:30 C-Reactive Protein 6.90 mg/dL (0.00-1.30) H 03/20/21 04:00 Total Protein 6.7 g/dL (6.3-8.2) 03/17/21 05:23 Albumin 3.2 g/dL (3.9-5) L 03/17/21 05:23 Albumin/Globulin Ratio 0.9 % 03/17/21 05:23 Triglycerides 285 mg/dL (2-149) H 03/17/21 05:23 Procalcitonin < 0.05 ng/mL (<0.15) 03/13/21 15:40 HCG, Qual Negative (Negative) 03/13/21 13:26 Arterial Blood Glucose 106 mg/dL (65-95) H 03/22/21 03:09 Arterial Blood Ionized Calcium 4.5 mg/dL (4.6-5.3) L 03/21/21 Unknown Urine Creatinine 40.1 mg/dL (0.1-20.0) H 03/14/21 17:50 Urine Sodium 124 mmol/L 03/14/21 17:50 Random Vancomycin 11.2 ug/mL (0-40.0) 03/20/21 04:23 Coronavirus (PCR) Positive (Negative) A 03/14/21 Unknown Hepatitis A IgM Ab Non-reactive (NonReactive) 03/15/21 05:09 Hep Bs Antigen Nonreactive (Negative) 03/15/21 05:09 Hep B Core IgM Ab Non-reactive (NonReactive) 03/15/21 05:09 Hepatitis C Antibody Non-reactive (NonReactive) 03/15/21 05:09 Bazan/IV: Voiding Method Indwelling Catheter Active Medications - Current Medications Current Medications: Generic Name Dose Route Start Last Admin Trade Name Freq PRN Reason Stop Dose Admin Acetaminophen 650 mg 03/13/21 19:30 Acetaminophen 325 Mg Tab PO Q4H PRN Pain MILD(1-3)/Fever >100.5/SALAS Acetylcysteine 200 mg 03/19/21 14:00 Acetylcysteine 20% 200 Mg/1 Ml *For Inhalation Use* INHALATION Q6HRT INESSA Albuterol 2.5 mg 03/19/21 00:53 Albuterol 2.5 Mg/3 Ml Nebu IH Q4HRT PRN Shortness Of Breath Albuterol/Ipratropium 1 ampul 03/19/21 08:00 03/22/21 03:05 Ipratropium/Albuterol Sulfate 3 Ml Ampul.Neb IH Not Given Q6HRT INESSA Lipase/Protease/Amylase 1 each 03/15/21 11:42 Lipase 10,500/Protease 25,000/Amylase 43,750 (Units) Dr White FEEDTUBE PRN PRN For Clogged Feeding Tube Ascorbic Acid 500 mg 03/14/21 22:00 03/21/21 21:36 Ascorbic Acid 500 Mg Tab PO 500 mg BID INESSA Administration Dexamethasone 6 mg 03/16/21 10:00 03/21/21 11:00 Dexamethasone 4 Mg/Ml Vial IV 03/23/21 10:01 6 mg Q24H INESSA Administration Dextrose 50 ml 03/14/21 11:02 03/15/21 11:40 Dextrose 50% In Water (25gm) 50 Ml Syringe IV 50 ml Q30MIN PRN Administration Hypoglycemia Protocol Famotidine 10 mg 03/17/21 22:00 03/21/21 21:36 Famotidine 10 Mg Tab PO 10 mg BID INESSA Administration Fentanyl 50 mcg 03/15/21 10:43 Fentanyl 100 Mcg/2 Ml Inj IV Q10MIN PRN ANALGESIA Heparin Sodium (Porcine) 7,500 unit 03/18/21 10:00 03/21/21 21:34 Heparin 5,000 Unit/1 Ml Vial SUB-Q 7,500 unit Q12HR INESSA Administration Hydralazine HCl 10 mg 03/15/21 10:10 03/15/21 10:32 Hydralazine 20 Mg/1 Ml Inj IV 10 mg Q4HR PRN Administration Hypertension Hydrophilic Ointment 1 applic 03/14/21 17:50 Lip Therapy Vaseline TP Q2HR PRN Dry Lips Propofol 1,000 mg in 100 mls @ 4.123 mls/hr 03/15/21 11:00 03/22/21 07:20 Diprivan 10 Mg/Ml IV 25 mcg/kg/min TITR INESSA 20.616 mls/hr Administration Protocol 5 MCG/KG/MIN Fentanyl Citrate 2,000 mcg in 100 mls @ 6.872 mls/hr 03/15/21 11:00 03/22/21 04:23 Fentanyl Drip Premix IV 3 mcg/kg/hr TITR INESSA 20.616 mls/hr Administration Protocol 1 MCG/KG/HR Sodium Chloride 500 mls @ 1 mls/hr 03/16/21 17:19 Nacl 0.9% 500 Ml IV DIRECT PRN ARTERIAL LINE FLUSH Cefazolin Sodium 1 gm in 50 mls @ 100 mls/hr 03/19/21 16:00 03/21/21 19:43 Ancef/Ns 1 Gm/50 Ml IV 100 mls/hr Q24H INESSA Administration Protocol Dextrose 1,000 mls @ 50 mls/hr 03/21/21 15:00 03/21/21 15:26 D5w IV 03/22/21 10:59 50 mls/hr DIRECT INESSA Administration Vasopressin 20 unit/ Sodium 101 mls @ 9.09 mls/hr 03/21/21 16:00 03/22/21 00:00 Chloride IV 0.03 units/min TITR INESSA 9.09 mls/hr Administration Protocol 0.03 UNITS/MIN Sodium Chloride 100 mls @ 999 mls/hr 03/21/21 20:23 Nacl 0.9% IV KARLOS PRN Hypotension Insulin Human Lispro 0 unit 03/14/21 12:00 03/22/21 07:21 Insulin Lispro 100 Unit/Ml SUB-Q Not Given Q6HR [facility] Protocol Lorazepam 1 mg 03/13/21 19:40 03/18/21 14:11 Lorazepam 2 Mg/Ml Vial IV 1 mg Q4H PRN Administration Anxiety Metoclopramide HCl 5 mg 03/21/21 16:00 03/22/21 03:49 Metoclopramide 10 Mg/2 Ml Inj IV 5 mg Q6H INESSA Administration Multi-Ingred Cream/Lotion/Oil/Oint 1 applic 03/14/21 17:50 Mineral Oil/Petrolatum, White Ophth Oint 3.5 Gm OU Q4HR PRN Dry Eye(s) Ondansetron HCl 4 mg 03/13/21 19:30 03/21/21 12:05 Ondansetron 4 Mg/2 Ml Inj IV 4 mg Q8H PRN Administration Nausea And Vomiting Senna/Docusate Sodium 1 tab 03/14/21 22:00 03/21/21 21:36 Sennosides/Docusate Sodium 8.6/50 Mg Tab FEEDTUBE 1 tab BID INESSA Administration Simple Syrup 15 ml 03/15/21 11:42 Simple Syrup 15 Ml FEEDTUBE PRN PRN Hypoglycemia Simple Syrup 30 ml 03/15/21 11:42 Simple Syrup 15 Ml FEEDTUBE PRN PRN Hypoglycemia Sodium Bicarbonate 325 mg 03/15/21 11:42 03/21/21 17:21 Sodium Bicarbonate 325 Mg Tab FEEDTUBE 325 mg PRN PRN Administration For Clogged Feeding Tube Sodium Chloride 10 ml 03/13/21 22:00 03/21/21 11:00 Sodium Chloride 0.9% 10 Ml Flush Syringe IV 10 ml BID INESSA Administration Sodium Chloride 10 ml 03/13/21 19:30 Sodium Chloride 0.9% 10 Ml Flush Syringe IV PRN PRN LINE FLUSH Zinc Sulfate 220 mg 03/14/21 22:00 11/07/21 21:36 Zinc Sulfate 220 Mg Cap PO 220 mg BID INESSA Administration Nutrition/Malnutrition Assess - Dietary Evaluation Nutrition/Malnutrition Findings: Nutrition Notes Start: 03/15/21 11:06 Freq: Status: Active Protocol: Document 03/19/21 16:31 GB (Rec: 03/19/21 16:37 GB [id number]) Nutrition Notes Initial or Follow up Reassessment Current Diagnosis Respiratory Failure Other Pertinent Diagnosis SOB. PMHx: asthma, morbid obesity, crohn's disease Current Diet No diet order: should be NPO - Tube Feeding Labs/Tests 03/19: BUN 55, creatinine 8.1, Ca 8.1, P 7.9 A1c 6.3 Pertinent Medications Vit C, D5(PRN), Fentanyl Citrate, Propofol 16.493ml/hr (435kcal), Zn Sulfate Height 5 ft 5 in Weight 137.438 kg [place] Body Weight (kg) 56.81 BMI 50.4 Weight change and time frame No new weights recorded at time of assessment Weight Status Morbidly Obese Subjective/Other Information Pt is intubated/sedated - continues BM: 03/18 MD note 03/19: okay to restart TF at 10ml advance 10ml/8hr as tolerated to goal. RN note: vomited 03/18 TF held for aspiration check. TF currently at 20ml/hr advancing as tolerated. Percent of energy/protein needs met: TF at goal will meet 75% or greater of minimal EEN Burn Absent Trauma Absent GI Symptoms Vomiting Difficulty In Swallowing Food Allergy No Skin Integrity/Comment No complications reported Current % PO Other Minimum of two criteria No #1 Nutrition Diagnosis Swallowing difficulty Comments: 03/17: intubation/sedation/TF continues 03/19: intubation/sedation/TF continues Etiology SOB, respiratory failure As Evidenced by Signs and Symptoms intubated/sedated (03/14) Diagnosis Progress(for reassessment Continues documentation) Is patient on ventilator? Yes Is Patient Ambulatory and/or Out of Bed No REE-([facility]-confined to bed) 2515.536 Kcal/Kg value to use for calculation 15 Approximate Energy Requirements Using 2 kcal/Kg Calculation Used for Recommendations Kcal/kg Additional Notes Protein 0.6g/kg or greater @ 137g or greater Fluids: 1ml/kcal or per MD Nutrition Intervention Change Diet Order: NPO Nutrition Support: 03/19: Nepro @ 44ml/hr (held r/ t vomiting: restarted at 10ml/ hr advancing to goal) Flush: 155ml/4hr Total free H2O/day: TF@goal + flush = 1700ml Kcal 1,900 Protein (gm) 86 Carbohydrates (gm) 170 Fat (gm) 101 Fluid (mL) 767 Fiber (gm) 13 Goal #1 TF started and tolerated by f/ u 03/17 met, changing to nepro 03/19: nepro, post vomiting event, TF restarted @10ml advancing as tolerated. Goal #2 TF at goal by f/u 03/19: restarted at 10ml/hr advancing to goal. Currently at 20ml/hr. Follow-Up By: 03/23/21 Additional Comments f/u: TF tolerance, vent status
[2021-03-21] MEDS: VASOPRESSIN 20 UNIT in SODIUM CHLORIDE 0.9% 100 ML IV SCH (15:27)
[2021-03-21] MEDS ORDERED: METOCLOPRAMIDE 10 MG/2 ML INJ IV SCH (16:00)
[2021-03-21] MEDS ORDERED: SODIUM CHLORIDE 0.9% 1000 ML 1,000 ML ONE (16:47)
[2021-03-21] MEDS: ceFAZolin/NS 1 GM/50 ML 1 GM/50 ML BAG IV SCH (19:43)
[2021-03-21] MEDS ORDERED: SODIUM CHLORIDE 0.9% 100 ML IV PRN (20:23)
[2021-03-22] MEDS: INSULIN LISPRO 100 UNIT/ML SUB-Q SCH ×4 (01:47→18:22)
[2021-03-22] MEDS: IPRATROPIUM/ALBUTEROL SULFATE 3 ML AMPUL.NEB IH SCH ×4 (03:05→20:31)
[2021-03-22] MEDS: METOCLOPRAMIDE 10 MG/2 ML INJ IV SCH ×4 (03:49→21:30)
[2021-03-22] MEDS: fentaNYL DRIP Premix 2,000 MCG/100 ML BAG IV SCH ×5 (04:23→23:41)
[2021-03-22 07:30] LABS: ABG Base Excess -4.4 mmol/L (-2.0-3.0); ABG HCO3 22.9 mmol/L (20.0-26.0); ABG Methemoglobin 0.6 % (0.0-1.5); ABG Oxygen Saturation 96.4 % (95.0-99.0); ABG PH 7.245 pH Units (7.350-7.450); ABG PO2 90.6 mm Hg (80.0-90.0)
[2021-03-22] MEDS: HEPARIN 5,000 UNIT/1 ML VIAL SUB-Q SCH (09:01)
[2021-03-22] MEDS: dexAMETHasone 4 MG/ML VIAL IV SCH (09:01)
[2021-03-22] MEDS: SENNOSIDES/DOCUSATE SODIUM 8.6/50 MG TAB FEEDTUBE SCH ×2 (09:01→21:30)
[2021-03-22] MEDS: FAMOTIDINE 10 MG TAB PO SCH ×2 (09:01→21:29)
[2021-03-22] MEDS: ZINC SULFATE 220 MG CAP PO SCH ×2 (09:02→21:31)
[2021-03-22] MEDS: ASCORBIC ACID 500 MG TAB PO SCH ×2 (09:02→21:31)
[2021-03-22] MEDS: VASOPRESSIN 20 UNIT in SODIUM CHLORIDE 0.9% 100 ML IV SCH ×3 (09:50→21:27)
[2021-03-22 10:13] LABS: Hematocrit 25.5 % (30.3-42.9); Hemoglobin 8.4 gm/dl (10.1-14.3); Mean Corpuscular HGB Conc 33 % (30-34); Mean Corpuscular Volume 84 fl (79-97); Platelet Count 108 K/mm3 (140-440); Red Blood Count 3.05 M/mm3 (3.65-5.03); Red Cell Distribution Width 17.5 % (13.2-15.2)
[2021-03-22 10:24] LABS: C-Reactive Protein 9.4 mg/dL (0.00-1.30); Calcium 8.5 mg/dL (8.4-10.2)
--- NOTE | 2021-03-22 11:29 | Progress Note ---
Assessment and Plan Acute hypoxemic respiratory failure Acute asthma exacerbation Morbid obesity Crohn's disease Metabolic acidosis Acute kidney injury Coronavirus infection Pneumonia (CAP) Oropharyngeal dysphagia Obesity, if not mentioned above - stopped Heparinoids - send HIT assay - Apixaban for VTE prophylaxis - Mag Citrate laxative with Dulcolax tonight then prn - KUB without obstructive pattern - reduced TV to 450 nls - repeat ABG at 9 pm - resume trickle feeding - continue Reglan at 10 mg IV q6h - await lower extremity dopplers for VTE w/up - nephrology input appreciated; HD/UF for toxin and volume clearance - repeat ABG in am - continue care as below otherwise; - HD/UF sessions per nephrology prescription - vasopressors for target MAP > 65 mmHg - continue Daily SAT and SBT assessment as tolerated - continue to wean supplemental oxygen for target O2 sat's > 90% acutely - VAP bundle addressed - continue lung protective strategies - continue bronchodilators with pulmonary hygiene per RT - wean per pulmonary driven protocols otherwise - continue accuchecks with glycemic control per SSI (While critically ill target blood glucose of 140-180 mg/dL; avoid hypoglycemia) - sedation prn for target RASS 0 to -1 - avoid nephrotoxins, renally dose all medications - continue to avoid benzodiazepine's, reduce the possibility of delirium - AB's per ID rec's - prn analgesia per CPOT score - Maintenance of sleep-wake cycle, avoid delirium - continue enteral nutritional support at goal rate as tolerated - G.I. & VTE prophylaxis - PT/OT/ROM exercises - continue mobility protocols for pressure ulcer prophylaxis - Monitor hemodynamics closely - continue other care per attending / other consultants - discharge planning ongoing concurrently COVID SPECIFIC INTERVENTIONS - Actemra ordered if available - Remdesivir as per ID/Pulmonary developed protocols (not a candidate) - continue systemic steroids for severe COVID-19 infection empirically - follow repeat COVID tests results - zinc and vitamin C supplementation - Monitor inflammatory markers per facility protocol - ferritin, Ddimer, CRP - therapeutic anticoagulation per system Protocol based on d-dimer and clinical considerations (VTE prophylaxis) - Continue contact and airborne isolation .... Re-evaluate in am & prn CONDITION: CRITICAL PROGNOSIS: GUARDED CODE STATUS: FULL CODE The high probability of a clinically significant, sudden or life-threatening deterioration of the [respiratory, cardiovascular, renal & neurologic] system(s) required my full and direct attention, intervention and personal management. The aggregate critical care time was [32] minutes without overlap. Time includes spent on; [x] Data Review and interpretation [x] Patient assessment and monitoring of vital signs [x] Documentation [x] Medication orders and management Subjective Date of service: 03/22/21 Principal diagnosis: Ac hypoxemic resp failure; AE-Asthma; SAI; Crohn's; COVID- 19; Pneumonia Interval history: Patient is seen today for: Acute hypoxemic respiratory failure; AE-Asthma; SAI; Crohn's disease; COVID-19 infection; Pneumonia (CAP) Seen and examined at bedside; 24hour events reviewed; nursing and respiratory care staff consulted; no adverse overnight events reported to me; resting in bed; HD/UF ongoing; thrombocytopenia is progressing; no gross bleeding; remains on VTE prophylaxis dose Heparin; still intolerant of tube feeds but also reportedly no BM's for about a week; no high grade fevers Objective Vital Signs - 12hr 03/21/21 03/21/21 03/21/21 23:30 23:45 23:57 Temperature 99.4 F Pulse Rate 90 88 Pulse Rate [ Anterior Bilateral Throughout] Pulse Rate [ From Monitor] Respiratory 20 21 Rate Respiratory Rate [Anterior Bilateral Throughout] Blood Pressure 110/53 111/50 O2 Sat by Pulse 97 97 Oximetry O2 Sat by Pulse Oximetry [ Anterior Bilateral Throughout] O2 Sat by Pulse Oximetry [ Bilateral] 03/22/21 03/22/21 03/22/21 00:00 00:15 00:30 Temperature Pulse Rate 89 89 89 Pulse Rate [ Anterior Bilateral Throughout] Pulse Rate [ 89 From Monitor] Respiratory 20 20 20 Rate Respiratory Rate [Anterior Bilateral Throughout] Blood Pressure 103/60 106/53 103/57 O2 Sat by Pulse 98 96 98 Oximetry O2 Sat by Pulse Oximetry [ Anterior Bilateral Throughout] O2 Sat by Pulse Oximetry [ Bilateral] 03/22/21 03/22/21 03/22/21 00:45 01:00 01:15 Temperature Pulse Rate 87 87 86 Pulse Rate [ Anterior Bilateral Throughout] Pulse Rate [ From Monitor] Respiratory 20 19 21 Rate Respiratory Rate [Anterior Bilateral Throughout] Blood Pressure 110/51 100/47 103/50 O2 Sat by Pulse 98 96 98 Oximetry O2 Sat by Pulse Oximetry [ Anterior Bilateral Throughout] O2 Sat by Pulse Oximetry [ Bilateral] 03/22/21 03/22/21 03/22/21 01:30 01:45 02:00 Temperature Pulse Rate 87 89 89 Pulse Rate [ Anterior Bilateral Throughout] Pulse Rate [ From Monitor] Respiratory 20 21 21 Rate Respiratory Rate [Anterior Bilateral Throughout] Blood Pressure 103/52 114/64 104/60 O2 Sat by Pulse 98 97 99 Oximetry O2 Sat by Pulse Oximetry [ Anterior Bilateral Throughout] O2 Sat by Pulse Oximetry [ Bilateral] 03/22/21 03/22/21 03/22/21 02:15 02:30 02:45 Temperature Pulse Rate 89 88 89 Pulse Rate [ Anterior Bilateral Throughout] Pulse Rate [ From Monitor] Respiratory 21 20 18 Rate Respiratory Rate [Anterior Bilateral Throughout] Blood Pressure 104/60 102/59 103/63 O2 Sat by Pulse 99 99 100 Oximetry O2 Sat by Pulse Oximetry [ Anterior Bilateral Throughout] O2 Sat by Pulse Oximetry [ Bilateral] 03/22/21 03/22/21 03/22/21 03:00 03:15 03:30 Temperature Pulse Rate 90 88 88 Pulse Rate [ Anterior Bilateral Throughout] Pulse Rate [ From Monitor] Respiratory 21 23 19 Rate Respiratory Rate [Anterior Bilateral Throughout] Blood Pressure 113/63 98/56 112/55 O2 Sat by Pulse 100 100 100 Oximetry O2 Sat by Pulse Oximetry [ Anterior Bilateral Throughout] O2 Sat by Pulse Oximetry [ Bilateral] 03/22/21 03/22/21 03/22/21 03:38 03:45 03:46 Temperature 100.8 F H Pulse Rate 88 89 Pulse Rate [ Anterior Bilateral Throughout] Pulse Rate [ From Monitor] Respiratory 19 Rate Respiratory Rate [Anterior Bilateral Throughout] Blood Pressure 112/55 108/60 O2 Sat by Pulse 100 100 Oximetry O2 Sat by Pulse Oximetry [ Anterior Bilateral Throughout] O2 Sat by Pulse Oximetry [ Bilateral] 03/22/21 03/22/21 03/22/21 04:00 04:15 04:30 Temperature Pulse Rate 91 H 88 88 Pulse Rate [ Anterior Bilateral Throughout] Pulse Rate [ 88 From Monitor] Respiratory 18 26 H 26 H Rate Respiratory Rate [Anterior Bilateral Throughout] Blood Pressure 99/69 103/61 112/65 O2 Sat by Pulse 100 100 99 Oximetry O2 Sat by Pulse Oximetry [ Anterior Bilateral Throughout] O2 Sat by Pulse Oximetry [ Bilateral] 03/22/21 03/22/21 03/22/21 04:45 05:00 05:15 Temperature Pulse Rate 90 89 89 Pulse Rate [ Anterior Bilateral Throughout] Pulse Rate [ From Monitor] Respiratory 26 H 26 H 26 H Rate Respiratory Rate [Anterior Bilateral Throughout] Blood Pressure 113/63 106/53 111/60 O2 Sat by Pulse 99 98 98 Oximetry O2 Sat by Pulse Oximetry [ Anterior Bilateral Throughout] O2 Sat by Pulse Oximetry [ Bilateral] 03/22/21 03/22/21 03/22/21 05:30 05:45 06:00 Temperature Pulse Rate 88 86 87 Pulse Rate [ Anterior Bilateral Throughout] Pulse Rate [ From Monitor] Respiratory 26 H 26 H 26 H Rate Respiratory Rate [Anterior Bilateral Throughout] Blood Pressure 111/58 104/49 108/54 O2 Sat by Pulse 98 99 99 Oximetry O2 Sat by Pulse Oximetry [ Anterior Bilateral Throughout] O2 Sat by Pulse Oximetry [ Bilateral] 03/22/21 03/22/21 03/22/21 06:15 07:28 07:58 Temperature 100.2 F H Pulse Rate 86 95 H Pulse Rate [ 98 H Anterior Bilateral Throughout] Pulse Rate [ From Monitor] Respiratory 26 H Rate Respiratory 25 H Rate [Anterior Bilateral Throughout] Blood Pressure 106/56 146/84 O2 Sat by Pulse 98 96 Oximetry O2 Sat by Pulse Oximetry [ Anterior Bilateral Throughout] O2 Sat by Pulse Oximetry [ Bilateral] 03/22/21 03/22/21 03/22/21 09:45 09:50 10:00 Temperature 99.3 F Pulse Rate 92 H 93 H 98 H Pulse Rate [ Anterior Bilateral Throughout] Pulse Rate [ From Monitor] Respiratory 26 H Rate Respiratory Rate [Anterior Bilateral Throughout] Blood Pressure 121/67 121/70 146/84 O2 Sat by Pulse Oximetry O2 Sat by Pulse 95 Oximetry [ Anterior Bilateral Throughout] O2 Sat by Pulse 96 Oximetry [ Bilateral] 03/22/21 03/22/21 03/22/21 10:15 10:30 10:45 Temperature Pulse Rate 108 H 98 H 95 H Pulse Rate [ Anterior Bilateral Throughout] Pulse Rate [ From Monitor] Respiratory Rate Respiratory Rate [Anterior Bilateral Throughout] Blood Pressure 129/93 128/72 123/70 O2 Sat by Pulse Oximetry O2 Sat by Pulse Oximetry [ Anterior Bilateral Throughout] O2 Sat by Pulse Oximetry [ Bilateral] 03/22/21 03/22/21 11:00 11:15 Temperature Pulse Rate 94 H 91 H Pulse Rate [ Anterior Bilateral Throughout] Pulse Rate [ From Monitor] Respiratory Rate Respiratory Rate [Anterior Bilateral Throughout] Blood Pressure 126/69 126/76 O2 Sat by Pulse Oximetry O2 Sat by Pulse Oximetry [ Anterior Bilateral Throughout] O2 Sat by Pulse Oximetry [ Bilateral] Constitutional: no acute distress, other (morbidly obese female with mild ventilator dyssynchrony) Eyes: non-icteric ENT: oropharynx moist, other (ETT 25 cm BALJINDER) Neck: supple, no lymphadenopathy, no JVD, other (large circumference) Effort: mildly labored Ascultation: Bilateral: diminished breath sounds, rhonchi Percussion: Bilateral: not dull Cardiovascular: regular rate and rhythm Gastrointestinal: normoactive bowel sounds, soft, non-tender, non-distended (pr otuberant) Integumentary: normal Extremities: no cyanosis, no edema, pulses normal, no ischemia or petechiae Neurologic: non-focal exam (grossly), pupils equal and round, CN II-XII normal, motor strength normal and, other (moves all extremities spontaneously) Psychiatric: other (unasble to assess) CBC and BMP: 03/23/21 04:30 03/23/21 04:30 ABG, PT/INR, D-dimer: ABG ABG pH 7.245 pH Units (7.350-7.450) L 03/22/21 07:10 POC ABG pCO2 55.6 mmHg (32.0-48.0) H 03/22/21 03:09 ABG pCO2 54.0 mm Hg 03/22/21 07:10 POC ABG pO2 96.5 mmHg (83-108) 03/22/21 03:09 ABG pO2 90.6 mm Hg (80.0-90.0) H 03/22/21 07:10 POC ABG HCO3 21.5 03/22/21 03:09 ABG O2 Saturation 96.4 % (95.0-99.0) 03/22/21 07:10 PT/INR, D-dimer PT 13.1 Sec. (12.2-14.9) 03/13/21 13:26 INR 0.89 (0.87-1.13) 03/13/21 13:26 D-Dimer > 48192 ng/mlDDU (0-234) H 03/20/21 04:00 Abnormal lab findings: Abnormal Labs 03/13/21 03/13/21 03/13/21 13:26 13:26 15:40 WBC RBC Hgb Hct MCH 27 L RDW 17.0 H Plt Count Lymph % (Auto) [place] # (Auto) Seg Neutrophils % Seg Neutrophils # D-Dimer ABG pH POC ABG pCO2 POC ABG pO2 ABG pO2 ABG HCO3 ABG O2 Saturation ABG Base Excess ABG Hemoglobin ABG Oxyhemoglobin ABG Sodium ABG Potassium ABG Glucose Oxyhemoglobin Carboxyhemoglobin Sodium 136 L Potassium Chloride Carbon Dioxide BUN Creatinine Glucose 125 H 130 H POC Glucose Hemoglobin A1c Calcium Phosphorus Magnesium Lactate Dehydrogenase 235 H C-Reactive Protein 4.30 H Total Protein Albumin Triglycerides Arterial Blood Glucose Arterial Blood Ionized Calcium Urine Creatinine Random Vancomycin Coronavirus (PCR) 03/13/21 03/14/21 03/14/21 21:33 03:35 06:21 WBC 20.0 H RBC Hgb Hct MCH 27 L RDW 17.5 H Plt Count Lymph % (Auto) 7.8 L [place] # (Auto) 1.3 H Seg Neutrophils % 85.4 H Seg Neutrophils # 17.1 H D-Dimer ABG pH 7.323 L 7.234 L POC ABG pCO2 POC ABG pO2 ABG pO2 69.8 L ABG HCO3 ABG O2 Saturation 92.9 L 94.9 L ABG Base Excess -3.3 L -5.4 L ABG Hemoglobin ABG Oxyhemoglobin ABG Sodium ABG Potassium ABG Glucose Oxyhemoglobin 91.2 L 93.2 L Carboxyhemoglobin Sodium Potassium Chloride Carbon Dioxide BUN Creatinine Glucose POC Glucose Hemoglobin A1c Calcium Phosphorus Magnesium Lactate Dehydrogenase C-Reactive Protein Total Protein Albumin Triglycerides Arterial Blood Glucose Arterial Blood Ionized Calcium Urine Creatinine Random Vancomycin Coronavirus (PCR) 03/14/21 03/14/21 03/14/21 06:21 07:47 11:21 WBC RBC Hgb Hct MCH RDW Plt Count Lymph % (Auto) [place] # (Auto) Seg Neutrophils % Seg Neutrophils # D-Dimer ABG pH POC ABG pCO2 POC ABG pO2 ABG pO2 ABG HCO3 ABG O2 Saturation ABG Base Excess ABG Hemoglobin ABG Oxyhemoglobin ABG Sodium ABG Potassium ABG Glucose Oxyhemoglobin Carboxyhemoglobin Sodium 136 L 136 L Potassium 6.2 H* D 5.4 H Chloride Carbon Dioxide 21 L 21 L BUN Creatinine 1.5 H D 1.8 H Glucose 144 H 141 H POC Glucose 147 H Hemoglobin A1c Calcium Phosphorus Magnesium Lactate Dehydrogenase C-Reactive Protein Total Protein 8.7 H 9.2 H Albumin 3.8 L Triglycerides Arterial Blood Glucose Arterial Blood Ionized Calcium Urine Creatinine Random Vancomycin Coronavirus (PCR) 03/14/21 03/14/21 03/14/21 17:29 17:50 18:35 WBC RBC Hgb Hct MCH RDW Plt Count Lymph % (Auto) [place] # (Auto) Seg Neutrophils % Seg Neutrophils # D-Dimer ABG pH POC ABG pCO2 POC ABG pO2 ABG pO2 ABG HCO3 ABG O2 Saturation ABG Base Excess ABG Hemoglobin ABG Oxyhemoglobin ABG Sodium ABG Potassium ABG Glucose Oxyhemoglobin Carboxyhemoglobin Sodium 135 L Potassium 6.4 H* Chloride Carbon Dioxide 15 L BUN 26 H Creatinine 3.4 H D Glucose 165 H POC Glucose 209 H Hemoglobin A1c Calcium Phosphorus Magnesium Lactate Dehydrogenase C-Reactive Protein Total Protein Albumin Triglycerides Arterial Blood Glucose Arterial Blood Ionized Calcium Urine Creatinine 40.1 H Random Vancomycin Coronavirus (PCR) 03/14/21 03/14/21 03/14/21 18:46 22:23 23:52 WBC RBC Hgb Hct MCH RDW Plt Count Lymph % (Auto) [place] # (Auto) Seg Neutrophils % Seg Neutrophils # D-Dimer ABG pH 7.270 L POC ABG pCO2 POC ABG pO2 63.4 L ABG pO2 ABG HCO3 ABG O2 Saturation ABG Base Excess ABG Hemoglobin ABG Oxyhemoglobin 90.2 L ABG Sodium 134.9 L ABG Potassium 5.3 H ABG Glucose 134 H Oxyhemoglobin Carboxyhemoglobin Sodium 136 L Potassium 5.2 H Chloride Carbon Dioxide 20 L BUN 29 H Creatinine 3.6 H Glucose 236 H POC Glucose 128 H Hemoglobin A1c Calcium Phosphorus Magnesium Lactate Dehydrogenase C-Reactive Protein Total Protein Albumin 3.2 L Triglycerides Arterial Blood Glucose 134 H Arterial Blood Ionized Calcium Urine Creatinine Random Vancomycin Coronavirus (PCR) 03/14/21 03/15/21 03/15/21 Unknown 05:00 05:09 WBC 22.5 H RBC Hgb Hct MCH 27 L RDW 17.6 H Plt Count Lymph % (Auto) [place] # (Auto) Seg Neutrophils % Seg Neutrophils # D-Dimer ABG pH POC ABG pCO2 POC ABG pO2 ABG pO2 ABG HCO3 ABG O2 Saturation ABG Base Excess ABG Hemoglobin ABG Oxyhemoglobin ABG Sodium ABG Potassium ABG Glucose Oxyhemoglobin Carboxyhemoglobin Sodium Potassium Chloride Carbon Dioxide BUN Creatinine Glucose POC Glucose 116 H Hemoglobin A1c Calcium Phosphorus Magnesium Lactate Dehydrogenase C-Reactive Protein Total Protein Albumin Triglycerides Arterial Blood Glucose Arterial Blood Ionized Calcium Urine Creatinine Random Vancomycin Coronavirus (PCR) Positive A 03/15/21 03/15/21 03/15/21 05:09 05:09 05:09 WBC RBC Hgb Hct MCH RDW Plt Count Lymph % (Auto) [place] # (Auto) Seg Neutrophils % Seg Neutrophils # D-Dimer ABG pH POC ABG pCO2 POC ABG pO2 ABG pO2 ABG HCO3 ABG O2 Saturation ABG Base Excess ABG Hemoglobin ABG Oxyhemoglobin ABG Sodium ABG Potassium ABG Glucose Oxyhemoglobin Carboxyhemoglobin Sodium 136 L Potassium 6.5 H* D Chloride Carbon Dioxide 17 L BUN 41 H Creatinine 5.3 H Glucose 128 H POC Glucose Hemoglobin A1c 6.3 H Calcium Phosphorus Magnesium Lactate Dehydrogenase C-Reactive Protein 12.10 H Total Protein Albumin 3.1 L Triglycerides Arterial Blood Glucose Arterial Blood Ionized Calcium Urine Creatinine Random Vancomycin Coronavirus (PCR) 03/15/21 03/15/21 03/15/21 10:00 21:50 23:39 WBC RBC Hgb Hct MCH RDW Plt Count Lymph % (Auto) [place] # (Auto) Seg Neutrophils % Seg Neutrophils # D-Dimer ABG pH 7.098 L POC ABG pCO2 72.7 H POC ABG pO2 ABG pO2 162.5 H ABG HCO3 ABG O2 Saturation ABG Base Excess ABG Hemoglobin 10.1 L ABG Oxyhemoglobin ABG Sodium ABG Potassium 5.7 H ABG Glucose Oxyhemoglobin Carboxyhemoglobin 0.4 L Sodium Potassium Chloride Carbon Dioxide BUN Creatinine Glucose POC Glucose 156 H Hemoglobin A1c Calcium Phosphorus Magnesium Lactate Dehydrogenase C-Reactive Protein Total Protein Albumin Triglycerides Arterial Blood Glucose Arterial Blood Ionized Calcium Urine Creatinine Random Vancomycin Coronavirus (PCR) 03/16/21 03/16/21 03/16/21 05:00 05:30 05:30 WBC 16.7 H RBC 3.59 L Hgb 9.6 L Hct 30.1 L MCH 27 L RDW 17.5 H Plt Count Lymph % (Auto) [place] # (Auto) Seg Neutrophils % Seg Neutrophils # D-Dimer ABG pH POC ABG pCO2 POC ABG pO2 ABG pO2 ABG HCO3 ABG O2 Saturation ABG Base Excess ABG Hemoglobin ABG Oxyhemoglobin ABG Sodium ABG Potassium ABG Glucose Oxyhemoglobin Carboxyhemoglobin Sodium Potassium Chloride Carbon Dioxide BUN 46 H Creatinine 6.2 H Glucose 131 H POC Glucose Hemoglobin A1c Calcium Phosphorus 6.00 H D Magnesium Lactate Dehydrogenase 318 H C-Reactive Protein 18.60 H Total Protein Albumin 3.0 L Triglycerides Arterial Blood Glucose Arterial Blood Ionized Calcium Urine Creatinine Random Vancomycin Coronavirus (PCR) 03/16/21 03/16/21 03/16/21 05:51 06:37 08:58 WBC RBC Hgb Hct MCH RDW Plt Count Lymph % (Auto) [place] # (Auto) Seg Neutrophils % Seg Neutrophils # D-Dimer 3041.12 H ABG pH POC ABG pCO2 POC ABG pO2 ABG pO2 141.5 H ABG HCO3 ABG O2 Saturation ABG Base Excess ABG Hemoglobin 9.7 L ABG Oxyhemoglobin ABG Sodium ABG Potassium ABG Glucose Oxyhemoglobin Carboxyhemoglobin Sodium Potassium Chloride Carbon Dioxide BUN Creatinine Glucose POC Glucose 126 H Hemoglobin A1c Calcium Phosphorus Magnesium Lactate Dehydrogenase C-Reactive Protein Total Protein Albumin Triglycerides Arterial Blood Glucose Arterial Blood Ionized Calcium Urine Creatinine Random Vancomycin Coronavirus (PCR) 03/16/21 03/16/21 03/16/21 12:11 16:51 21:00 WBC RBC Hgb Hct MCH RDW Plt Count Lymph % (Auto) [place] # (Auto) Seg Neutrophils % Seg Neutrophils # D-Dimer ABG pH 7.239 L POC ABG pCO2 61.5 H POC ABG pO2 80.8 L ABG pO2 ABG HCO3 ABG O2 Saturation ABG Base Excess ABG Hemoglobin 11.4 L ABG Oxyhemoglobin 93.5 L ABG Sodium ABG Potassium 5.4 H ABG Glucose 137 H Oxyhemoglobin Carboxyhemoglobin 0.2 L Sodium Potassium Chloride Carbon Dioxide BUN Creatinine Glucose POC Glucose 156 H 133 H Hemoglobin A1c Calcium Phosphorus Magnesium Lactate Dehydrogenase C-Reactive Protein Total Protein Albumin Triglycerides Arterial Blood Glucose 137 H Arterial Blood Ionized Calcium Urine Creatinine Random Vancomycin Coronavirus (PCR) 03/16/21 03/17/21 03/17/21 23:42 05:23 05:23 WBC 18.4 H RBC Hgb Hct MCH 27 L RDW 17.4 H Plt Count Lymph % (Auto) [place] # (Auto) Seg Neutrophils % Seg Neutrophils # D-Dimer ABG pH POC ABG pCO2 POC ABG pO2 ABG pO2 ABG HCO3 ABG O2 Saturation ABG Base Excess ABG Hemoglobin ABG Oxyhemoglobin ABG Sodium ABG Potassium ABG Glucose Oxyhemoglobin Carboxyhemoglobin Sodium Potassium 5.2 H Chloride Carbon Dioxide 21 L BUN 79 H Creatinine 8.6 H Glucose 124 H POC Glucose 133 H Hemoglobin A1c Calcium Phosphorus Magnesium Lactate Dehydrogenase C-Reactive Protein Total Protein Albumin 3.2 L Triglycerides 285 H Arterial Blood Glucose Arterial Blood Ionized Calcium Urine Creatinine Random Vancomycin Coronavirus (PCR) 03/17/21 03/17/21 03/17/21 05:23 10:48 12:20 WBC RBC Hgb Hct MCH RDW Plt Count Lymph % (Auto) [place] # (Auto) Seg Neutrophils % Seg Neutrophils # D-Dimer ABG pH 7.294 L POC ABG pCO2 POC ABG pO2 ABG pO2 90.3 H ABG HCO3 ABG O2 Saturation ABG Base Excess ABG Hemoglobin 9.9 L ABG Oxyhemoglobin ABG Sodium ABG Potassium ABG Glucose Oxyhemoglobin Carboxyhemoglobin Sodium Potassium 5.2 H Chloride Carbon Dioxide 21 L BUN 79 H Creatinine 8.4 H Glucose 125 H POC Glucose 171 H Hemoglobin A1c Calcium Phosphorus 9.90 H D Magnesium 2.40 H Lactate Dehydrogenase C-Reactive Protein Total Protein Albumin Triglycerides Arterial Blood Glucose Arterial Blood Ionized Calcium Urine Creatinine Random Vancomycin Coronavirus (PCR) 03/17/21 03/17/21 03/18/21 17:24 21:00 04:30 WBC RBC Hgb Hct MCH RDW Plt Count Lymph % (Auto) [place] # (Auto) Seg Neutrophils % Seg Neutrophils # D-Dimer 9953.09 H ABG pH 7.310 L POC ABG pCO2 54.5 H POC ABG pO2 62.3 L ABG pO2 ABG HCO3 ABG O2 Saturation ABG Base Excess ABG Hemoglobin 10.2 L ABG Oxyhemoglobin 88.6 L ABG Sodium ABG Potassium 4.7 H ABG Glucose 99 H Oxyhemoglobin Carboxyhemoglobin 0.3 L Sodium Potassium Chloride Carbon Dioxide BUN Creatinine Glucose POC Glucose 121 H Hemoglobin A1c Calcium Phosphorus Magnesium Lactate Dehydrogenase C-Reactive Protein Total Protein Albumin Triglycerides Arterial Blood Glucose 99 H Arterial Blood Ionized Calcium 4.3 L Urine Creatinine Random Vancomycin Coronavirus (PCR) 03/18/21 03/18/21 03/18/21 04:30 04:30 11:34 WBC 12.8 H RBC 3.49 L Hgb 9.4 L Hct 29.3 L MCH 27 L RDW 17.4 H Plt Count Lymph % (Auto) [place] # (Auto) Seg Neutrophils % Seg Neutrophils # D-Dimer ABG pH POC ABG pCO2 POC ABG pO2 ABG pO2 ABG HCO3 ABG O2 Saturation ABG Base Excess ABG Hemoglobin ABG Oxyhemoglobin ABG Sodium ABG Potassium ABG Glucose Oxyhemoglobin Carboxyhemoglobin Sodium Potassium Chloride Carbon Dioxide BUN 69 H Creatinine 7.3 H Glucose POC Glucose 114 H Hemoglobin A1c Calcium 8.2 L Phosphorus 7.60 H D Magnesium Lactate Dehydrogenase 477 H C-Reactive Protein 6.90 H Total Protein Albumin Triglycerides Arterial Blood Glucose Arterial Blood Ionized Calcium Urine Creatinine Random Vancomycin Coronavirus (PCR) 03/18/21 03/19/21 03/19/21 21:44 04:13 04:13 WBC 13.7 H RBC 3.32 L Hgb 9.0 L Hct 28.1 L MCH 27 L RDW 16.9 H Plt Count Lymph % (Auto) [place] # (Auto) Seg Neutrophils % Seg Neutrophils # D-Dimer ABG pH 7.290 L POC ABG pCO2 POC ABG pO2 ABG pO2 119.7 H ABG HCO3 28.0 H ABG O2 Saturation ABG Base Excess ABG Hemoglobin 9.6 L ABG Oxyhemoglobin ABG Sodium ABG Potassium ABG Glucose Oxyhemoglobin Carboxyhemoglobin Sodium Potassium Chloride Carbon Dioxide BUN Creatinine Glucose POC Glucose Hemoglobin A1c Calcium Phosphorus Magnesium Lactate Dehydrogenase C-Reactive Protein Total Protein Albumin Triglycerides Arterial Blood Glucose Arterial Blood Ionized Calcium Urine Creatinine Random Vancomycin 43.5 H Coronavirus (PCR) 03/19/21 03/19/21 03/19/21 04:13 05:59 11:40 WBC RBC Hgb Hct MCH RDW Plt Count Lymph % (Auto) [place] # (Auto) Seg Neutrophils % Seg Neutrophils # D-Dimer ABG pH POC ABG pCO2 POC ABG pO2 ABG pO2 ABG HCO3 ABG O2 Saturation ABG Base Excess ABG Hemoglobin ABG Oxyhemoglobin ABG Sodium ABG Potassium ABG Glucose Oxyhemoglobin Carboxyhemoglobin Sodium Potassium Chloride Carbon Dioxide BUN 55 H Creatinine 7.0 H Glucose POC Glucose 116 H 145 H Hemoglobin A1c Calcium 8.1 L Phosphorus 7.90 H Magnesium Lactate Dehydrogenase C-Reactive Protein Total Protein Albumin Triglycerides Arterial Blood Glucose Arterial Blood Ionized Calcium Urine Creatinine Random Vancomycin Coronavirus (PCR) 03/19/21 03/19/21 03/20/21 17:01 23:41 04:00 WBC 15.6 H RBC 3.55 L Hgb 9.6 L Hct MCH 27 L RDW 16.8 H Plt Count 139 L Lymph % (Auto) [place] # (Auto) Seg Neutrophils % Seg Neutrophils # D-Dimer ABG pH POC ABG pCO2 POC ABG pO2 ABG pO2 ABG HCO3 ABG O2 Saturation ABG Base Excess ABG Hemoglobin ABG Oxyhemoglobin ABG Sodium ABG Potassium ABG Glucose Oxyhemoglobin Carboxyhemoglobin Sodium Potassium Chloride Carbon Dioxide BUN Creatinine Glucose POC Glucose 111 H 118 H Hemoglobin A1c Calcium Phosphorus Magnesium Lactate Dehydrogenase C-Reactive Protein Total Protein Albumin Triglycerides Arterial Blood Glucose Arterial Blood Ionized Calcium Urine Creatinine Random Vancomycin Coronavirus (PCR) 03/20/21 03/20/21 03/20/21 04:00 04:00 04:37 WBC RBC Hgb Hct MCH RDW Plt Count Lymph % (Auto) [place] # (Auto) Seg Neutrophils % Seg Neutrophils # D-Dimer > 22973 H ABG pH 7.306 L POC ABG pCO2 POC ABG pO2 ABG pO2 ABG HCO3 27.9 H ABG O2 Saturation ABG Base Excess ABG Hemoglobin 5.2 L ABG Oxyhemoglobin ABG Sodium ABG Potassium ABG Glucose Oxyhemoglobin Carboxyhemoglobin Sodium Potassium 5.2 H Chloride 97.6 L Carbon Dioxide BUN 52 H Creatinine 6.2 H Glucose 104 H POC Glucose Hemoglobin A1c Calcium Phosphorus 8.60 H Magnesium Lactate Dehydrogenase C-Reactive Protein 6.90 H Total Protein Albumin Triglycerides Arterial Blood Glucose Arterial Blood Ionized Calcium Urine Creatinine Random Vancomycin Coronavirus (PCR) 03/20/21 03/20/21 03/20/21 13:50 17:46 17:56 WBC RBC Hgb Hct MCH RDW Plt Count Lymph % (Auto) [place] # (Auto) Seg Neutrophils % Seg Neutrophils # D-Dimer ABG pH POC ABG pCO2 POC ABG pO2 ABG pO2 ABG HCO3 ABG O2 Saturation ABG Base Excess ABG Hemoglobin ABG Oxyhemoglobin ABG Sodium ABG Potassium ABG Glucose Oxyhemoglobin Carboxyhemoglobin Sodium Potassium Chloride Carbon Dioxide BUN 63 H 43 H Creatinine Glucose POC Glucose 145 H Hemoglobin A1c Calcium Phosphorus Magnesium Lactate Dehydrogenase C-Reactive Protein Total Protein Albumin Triglycerides Arterial Blood Glucose Arterial Blood Ionized Calcium Urine Creatinine Random Vancomycin Coronavirus (PCR) 03/20/21 03/21/21 03/21/21 23:18 06:58 06:58 WBC 14.4 H RBC 3.41 L Hgb 9.5 L Hct 28.6 L MCH RDW 17.4 H Plt Count 107 L Lymph % (Auto) [place] # (Auto) Seg Neutrophils % Seg Neutrophils # D-Dimer ABG pH POC ABG pCO2 POC ABG pO2 ABG pO2 ABG HCO3 ABG O2 Saturation ABG Base Excess ABG Hemoglobin ABG Oxyhemoglobin ABG Sodium ABG Potassium ABG Glucose Oxyhemoglobin Carboxyhemoglobin Sodium Potassium Chloride Carbon Dioxide BUN 60 H Creatinine 7.7 H Glucose POC Glucose 106 H Hemoglobin A1c Calcium Phosphorus Magnesium Lactate Dehydrogenase C-Reactive Protein Total Protein Albumin Triglycerides Arterial Blood Glucose Arterial Blood Ionized Calcium Urine Creatinine Random Vancomycin Coronavirus (PCR) 03/21/21 03/21/21 03/21/21 11:11 18:04 Unknown WBC RBC Hgb Hct MCH RDW Plt Count Lymph % (Auto) [place] # (Auto) Seg Neutrophils % Seg Neutrophils # D-Dimer ABG pH 7.270 L POC ABG pCO2 58.7 H POC ABG pO2 76.9 L ABG pO2 ABG HCO3 ABG O2 Saturation ABG Base Excess ABG Hemoglobin 9.9 L ABG Oxyhemoglobin 92.4 L ABG Sodium 135.8 L ABG Potassium 4.6 H ABG Glucose Oxyhemoglobin Carboxyhemoglobin 0.1 L Sodium Potassium Chloride Carbon Dioxide BUN Creatinine Glucose POC Glucose 109 H 141 H Hemoglobin A1c Calcium Phosphorus Magnesium Lactate Dehydrogenase C-Reactive Protein Total Protein Albumin Triglycerides Arterial Blood Glucose Arterial Blood Ionized Calcium 4.5 L Urine Creatinine Random Vancomycin Coronavirus (PCR) 03/22/21 03/22/21 03/22/21 03:09 07:10 10:00 WBC RBC Hgb Hct MCH RDW Plt Count Lymph % (Auto) [place] # (Auto) Seg Neutrophils % Seg Neutrophils # D-Dimer ABG pH 7.206 L 7.245 L POC ABG pCO2 55.6 H POC ABG pO2 ABG pO2 90.6 H ABG HCO3 ABG O2 Saturation ABG Base Excess -4.4 L ABG Hemoglobin 9.0 L 8.4 L ABG Oxyhemoglobin ABG Sodium 123.4 L ABG Potassium 5.6 H ABG Glucose 106 H Oxyhemoglobin 94.5 L Carboxyhemoglobin 0.1 L Sodium Potassium 5.4 H Chloride 96.8 L Carbon Dioxide BUN 89 H Creatinine 8.7 H Glucose 131 H POC Glucose Hemoglobin A1c Calcium Phosphorus Magnesium Lactate Dehydrogenase C-Reactive Protein 9.40 H Total Protein Albumin Triglycerides Arterial Blood Glucose 106 H Arterial Blood Ionized Calcium Urine Creatinine Random Vancomycin Coronavirus (PCR) 03/22/21 10:00 WBC RBC 3.05 L Hgb 8.4 L Hct 25.5 L MCH RDW 17.5 H Plt Count 108 L Lymph % (Auto) [place] # (Auto) Seg Neutrophils % Seg Neutrophils # D-Dimer ABG pH POC ABG pCO2 POC ABG pO2 ABG pO2 ABG HCO3 ABG O2 Saturation ABG Base Excess ABG Hemoglobin ABG Oxyhemoglobin ABG Sodium ABG Potassium ABG Glucose Oxyhemoglobin Carboxyhemoglobin Sodium Potassium Chloride Carbon Dioxide BUN Creatinine Glucose POC Glucose Hemoglobin A1c Calcium Phosphorus Magnesium Lactate Dehydrogenase C-Reactive Protein Total Protein Albumin Triglycerides Arterial Blood Glucose Arterial Blood Ionized Calcium Urine Creatinine Random Vancomycin Coronavirus (PCR) Chest x-ray: other (none today) Allied health notes reviewed: nursing
[2021-03-22] MEDS ORDERED: MAGNESIUM CITRATE 300 ML ORAL LIQD PO ONE (13:00)
[2021-03-22 14:02] LABS: INR 1.14 (0.87-1.13)
[2021-03-22 14:03] LABS: Partial Thromboplastin Time 26.8 Sec. (24.2-36.6)
--- NOTE | 2021-03-22 14:54 | Progress Note ---
Assessment and Plan Cultures: SARS CoV2 PCR: Positive 03/13/2021 blood culture: No growth Rest cultures: Staph aureus A/P: 31-year-old female with asthma, morbid obesity, Crohn's disease admitted with cough and shortness of breath: #Bilateral pneumonia: Secondary to COVID-19. Severe disease. CRP has worsened to 12.1. Procalcitonin 0.05. #Acute hypoxic respiratory failure: Requiring BiPAP. #Acute renal failure: Renally adjust antibiotics. Nephrology on board, planning dialysis #Acute asthma exacerbation #Morbid obesity Recs: -IV/PO Dexamethasone x 10 days -Not a candidate for remdesivir due to renal failure -Actemra given 03/15/2021 per pharmacy notes. -prophylactic anticoagulation based on d-dimer per hospital protocol -Continue cefazolin 2g q24h. Planned 8 days -trend d-dimer, CRP every 2-3 days -poor prognosis Champ Ling MD [facility] ([facility]) O: [phone] F: [phone] Subjective Date of service: 03/22/21 Principal diagnosis: Ac hypoxemic resp failure; AE-Asthma; SAI; Crohn's; COVID- 19; Pneumonia Interval history: Febrile overnight, normal white count now. Imaging personally reviewed: Worsening multifocal airspace disease Objective - Exam Narrative Exam: Physical exam deferred to reduce risk of transmission of COVID-19. Please refer to primary team's note. - Constitutional Vitals: Vital Signs Temp Pulse Resp BP Pulse Ox 99.1 F 100 H 20 144/93 96 03/22/21 13:34 03/22/21 13:34 03/22/21 13:34 03/22/21 13:34 03/22/21 13:34 Temperature -Last 24 Hours Temperature 99.1 F Temperature 99.3 F Temperature 100.2 F Temperature 100.8 F Temperature 99.4 F Temperature 100.1 F - Labs CBC & Chem 7: 03/22/21 10:00 03/22/21 12:37 Labs: Abnormal lab results 03/21/21 03/22/21 03/22/21 Range/Units 18:04 03:09 07:10 RBC (3.65-5.03) M/mm3 Hgb (10.1-14.3) gm/dl Hct (30.3-42.9) % RDW (13.2-15.2) % Plt Count (140-440) K/mm3 PT (12.2-14.9) Sec. INR (0.87-1.13) D-Dimer (0-234) ng/mlDDU ABG pH 7.206 L 7.245 L (7.320-7.450) POC ABG pCO2 55.6 H (32.0-48.0) mmHg ABG pO2 90.6 H (80.0-90.0) mm Hg ABG Base Excess -4.4 L (-2.0-3.0) mmol/L ABG Hemoglobin 9.0 L 8.4 L (12.0-17.5) ABG Sodium 123.4 L (136.0-145.0) mmol/L ABG Potassium 5.6 H (3.40-4.50) mmol/L ABG Glucose 106 H (65-95) mg/dL Oxyhemoglobin 94.5 L (95.0-99.0) % Carboxyhemoglobin 0.1 L (0.5-1.5) Potassium (3.6-5.0) mmol/L Chloride (98-107) mmol/L BUN (7-17) mg/dL Creatinine (0.6-1.2) mg/dL Glucose (65-100) mg/dL POC Glucose 141 H (70-105) mg/dL C-Reactive Protein (0.00-1.30) mg/dL Arterial Blood Glucose 106 H (65-95) mg/dL 03/22/21 03/22/21 03/22/21 Range/Units 10:00 10:00 12:37 RBC 3.05 L (3.65-5.03) M/mm3 Hgb 8.4 L (10.1-14.3) gm/dl Hct 25.5 L (30.3-42.9) % RDW 17.5 H (13.2-15.2) % Plt Count 108 L (140-440) K/mm3 PT (12.2-14.9) Sec. INR (0.87-1.13) D-Dimer (0-234) ng/mlDDU ABG pH (7.320-7.450) POC ABG pCO2 (32.0-48.0) mmHg ABG pO2 (80.0-90.0) mm Hg ABG Base Excess (-2.0-3.0) mmol/L ABG Hemoglobin (12.0-17.5) ABG Sodium (136.0-145.0) mmol/L ABG Potassium (3.40-4.50) mmol/L ABG Glucose (65-95) mg/dL Oxyhemoglobin (95.0-99.0) % Carboxyhemoglobin (0.5-1.5) Potassium 5.4 H (3.6-5.0) mmol/L Chloride 96.8 L (98-107) mmol/L BUN 89 H (7-17) mg/dL Creatinine 8.7 H 8.7 H (0.6-1.2) mg/dL Glucose 131 H (65-100) mg/dL POC Glucose (70-105) mg/dL C-Reactive Protein 9.40 H (0.00-1.30) mg/dL Arterial Blood Glucose (65-95) mg/dL 03/22/21 03/22/21 Range/Units 13:19 13:40 RBC (3.65-5.03) M/mm3 Hgb (10.1-14.3) gm/dl Hct (30.3-42.9) % RDW (13.2-15.2) % Plt Count (140-440) K/mm3 PT 15.8 H (12.2-14.9) Sec. INR 1.14 H (0.87-1.13) D-Dimer > 34762 H (0-234) ng/mlDDU ABG pH (7.320-7.450) POC ABG pCO2 (32.0-48.0) mmHg ABG pO2 (80.0-90.0) mm Hg ABG Base Excess (-2.0-3.0) mmol/L ABG Hemoglobin (12.0-17.5) ABG Sodium (136.0-145.0) mmol/L ABG Potassium (3.40-4.50) mmol/L ABG Glucose (65-95) mg/dL Oxyhemoglobin (95.0-99.0) % Carboxyhemoglobin (0.5-1.5) Potassium (3.6-5.0) mmol/L Chloride (98-107) mmol/L BUN (7-17) mg/dL Creatinine (0.6-1.2) mg/dL Glucose (65-100) mg/dL POC Glucose 140 H (70-105) mg/dL C-Reactive Protein (0.00-1.30) mg/dL Arterial Blood Glucose (65-95) mg/dL
--- NOTE | 2021-03-22 17:54 | Progress Note ---
Assessment and Plan #Acute kidney injury: dialysis dependent, Continue MWF Assess daily for needs for additional sessions Strict I/O # Hyperkalemia, controlled with HD #Respiratory failure Covid 19 infection currently intubated Likely etiology of renal failure appears to be acute tubal necrosis +/- Covid 19 infection UF as tolerated with HD #Hyperphosphatemia to be monitored Dialysis has been initiated #Hyponatremia: Improved with HD #Overall prognosis remains guarded Subjective Date of service: 03/22/21 Principal diagnosis: Ac hypoxemic resp failure; AE-Asthma; SAI; Crohn's; COVID- 19; Pneumonia Interval history: Remains intubated. Seen during dialysis, tolerating without complications. Objective - Exam Narrative Exam: General: NAD HEENT: Oral mucosa moist Neck: Supple, no JVD Chest: Intubated Heart: RRR, S1 and S2, no pericardial rub Abdomen: Soft, nontender, no renal bruit Extremity: No peripheral cyanosis, edema Neurological: Eyes open but not following commands Dermatology: No skin rash Psych: Unable to assess Musculoskeletal: No joint effusion - Vital Signs Vital signs: Vital Signs - 12hr 03/22/21 03/22/21 03/22/21 06:00 06:15 06:30 Temperature Pulse Rate 87 86 86 Pulse Rate [ Anterior Bilateral Throughout] Pulse Rate [ From Monitor] Respiratory 26 H 26 H 26 H Rate Respiratory Rate [Anterior Bilateral Throughout] Blood Pressure 108/54 106/56 106/52 O2 Sat by Pulse 99 98 98 Oximetry O2 Sat by Pulse Oximetry [ Anterior Bilateral Throughout] O2 Sat by Pulse Oximetry [ Bilateral] 03/22/21 03/22/21 03/22/21 06:45 07:00 07:15 Temperature Pulse Rate 87 95 H 97 H Pulse Rate [ Anterior Bilateral Throughout] Pulse Rate [ From Monitor] Respiratory 26 H 26 H 26 H Rate Respiratory Rate [Anterior Bilateral Throughout] Blood Pressure 106/52 126/75 119/83 O2 Sat by Pulse 99 99 99 Oximetry O2 Sat by Pulse Oximetry [ Anterior Bilateral Throughout] O2 Sat by Pulse Oximetry [ Bilateral] 03/22/21 03/22/21 03/22/21 07:28 07:30 07:45 Temperature 100.2 F H Pulse Rate 97 H 90 Pulse Rate [ Anterior Bilateral Throughout] Pulse Rate [ From Monitor] Respiratory 22 26 H Rate Respiratory Rate [Anterior Bilateral Throughout] Blood Pressure 131/74 117/54 O2 Sat by Pulse 97 97 Oximetry O2 Sat by Pulse Oximetry [ Anterior Bilateral Throughout] O2 Sat by Pulse Oximetry [ Bilateral] 03/22/21 03/22/21 03/22/21 07:58 08:00 08:15 Temperature Pulse Rate 95 H 94 H 89 Pulse Rate [ 98 H Anterior Bilateral Throughout] Pulse Rate [ 94 H From Monitor] Respiratory 26 H 26 H Rate Respiratory 25 H Rate [Anterior Bilateral Throughout] Blood Pressure 146/84 121/70 109/44 O2 Sat by Pulse 96 97 96 Oximetry O2 Sat by Pulse Oximetry [ Anterior Bilateral Throughout] O2 Sat by Pulse Oximetry [ Bilateral] 03/22/21 03/22/21 03/22/21 08:30 08:45 09:00 Temperature Pulse Rate 88 88 90 Pulse Rate [ Anterior Bilateral Throughout] Pulse Rate [ From Monitor] Respiratory 26 H 26 H 26 H Rate Respiratory Rate [Anterior Bilateral Throughout] Blood Pressure 102/48 106/51 115/58 O2 Sat by Pulse 96 96 98 Oximetry O2 Sat by Pulse Oximetry [ Anterior Bilateral Throughout] O2 Sat by Pulse Oximetry [ Bilateral] 03/22/21 03/22/21 03/22/21 09:15 09:30 09:45 Temperature 99.3 F Pulse Rate 96 H 99 H 93 H Pulse Rate [ Anterior Bilateral Throughout] Pulse Rate [ From Monitor] Respiratory 26 H 26 H 26 H Rate Respiratory Rate [Anterior Bilateral Throughout] Blood Pressure 128/75 137/82 121/67 O2 Sat by Pulse 97 98 97 Oximetry O2 Sat by Pulse 95 Oximetry [ Anterior Bilateral Throughout] O2 Sat by Pulse 96 Oximetry [ Bilateral] 03/22/21 03/22/21 03/22/21 09:50 10:00 10:15 Temperature Pulse Rate 93 H 99 H 109 H Pulse Rate [ Anterior Bilateral Throughout] Pulse Rate [ From Monitor] Respiratory 26 H 25 H Rate Respiratory Rate [Anterior Bilateral Throughout] Blood Pressure 121/70 121/70 129/93 O2 Sat by Pulse 97 91 Oximetry O2 Sat by Pulse Oximetry [ Anterior Bilateral Throughout] O2 Sat by Pulse Oximetry [ Bilateral] 03/22/21 03/22/21 03/22/21 10:30 10:45 11:00 Temperature Pulse Rate 101 H 96 H 94 H Pulse Rate [ Anterior Bilateral Throughout] Pulse Rate [ From Monitor] Respiratory 26 H 26 H 26 H Rate Respiratory Rate [Anterior Bilateral Throughout] Blood Pressure 128/72 123/70 126/69 O2 Sat by Pulse 96 97 97 Oximetry O2 Sat by Pulse Oximetry [ Anterior Bilateral Throughout] O2 Sat by Pulse Oximetry [ Bilateral] 03/22/21 03/22/21 03/22/21 11:15 11:30 11:45 Temperature Pulse Rate 92 H 93 H 95 H Pulse Rate [ Anterior Bilateral Throughout] Pulse Rate [ From Monitor] Respiratory 26 H 26 H 26 H Rate Respiratory Rate [Anterior Bilateral Throughout] Blood Pressure 126/76 127/66 126/71 O2 Sat by Pulse 98 96 96 Oximetry O2 Sat by Pulse Oximetry [ Anterior Bilateral Throughout] O2 Sat by Pulse Oximetry [ Bilateral] 03/22/21 03/22/21 03/22/21 12:00 12:15 12:16 Temperature Pulse Rate 94 H 100 H 101 H Pulse Rate [ Anterior Bilateral Throughout] Pulse Rate [ 94 H From Monitor] Respiratory 26 H 20 Rate Respiratory Rate [Anterior Bilateral Throughout] Blood Pressure 136/79 154/87 154/97 O2 Sat by Pulse 97 98 Oximetry O2 Sat by Pulse Oximetry [ Anterior Bilateral Throughout] O2 Sat by Pulse Oximetry [ Bilateral] 03/22/21 03/22/21 03/22/21 12:30 12:45 13:00 Temperature Pulse Rate 103 H 106 H 103 H Pulse Rate [ Anterior Bilateral Throughout] Pulse Rate [ From Monitor] Respiratory 20 21 26 H Rate Respiratory Rate [Anterior Bilateral Throughout] Blood Pressure 153/87 142/90 156/84 O2 Sat by Pulse 97 99 98 Oximetry O2 Sat by Pulse Oximetry [ Anterior Bilateral Throughout] O2 Sat by Pulse Oximetry [ Bilateral] 03/22/21 03/22/21 03/22/21 13:15 13:30 13:34 Temperature 99.1 F Pulse Rate 108 H 107 H 100 H Pulse Rate [ Anterior Bilateral Throughout] Pulse Rate [ From Monitor] Respiratory 24 27 H 20 Rate Respiratory Rate [Anterior Bilateral Throughout] Blood Pressure 151/95 151/97 144/93 O2 Sat by Pulse 98 98 Oximetry O2 Sat by Pulse 95 Oximetry [ Anterior Bilateral Throughout] O2 Sat by Pulse 96 Oximetry [ Bilateral] 03/22/21 03/22/21 03/22/21 13:37 13:45 14:00 Temperature Pulse Rate 104 H 102 H Pulse Rate [ 101 H Anterior Bilateral Throughout] Pulse Rate [ From Monitor] Respiratory 22 22 Rate Respiratory 20 Rate [Anterior Bilateral Throughout] Blood Pressure 151/87 144/93 O2 Sat by Pulse 96 99 Oximetry O2 Sat by Pulse Oximetry [ Anterior Bilateral Throughout] O2 Sat by Pulse Oximetry [ Bilateral] 03/22/21 03/22/21 03/22/21 14:15 14:30 14:45 Temperature Pulse Rate 97 H 96 H 95 H Pulse Rate [ Anterior Bilateral Throughout] Pulse Rate [ From Monitor] Respiratory 20 20 19 Rate Respiratory Rate [Anterior Bilateral Throughout] Blood Pressure 128/68 113/55 130/75 O2 Sat by Pulse 97 97 99 Oximetry O2 Sat by Pulse Oximetry [ Anterior Bilateral Throughout] O2 Sat by Pulse Oximetry [ Bilateral] 03/22/21 03/22/21 03/22/21 15:00 15:15 15:30 Temperature Pulse Rate 101 H 98 H 96 H Pulse Rate [ Anterior Bilateral Throughout] Pulse Rate [ From Monitor] Respiratory 19 17 21 Rate Respiratory Rate [Anterior Bilateral Throughout] Blood Pressure 147/94 143/90 143/85 O2 Sat by Pulse 99 99 97 Oximetry O2 Sat by Pulse Oximetry [ Anterior Bilateral Throughout] O2 Sat by Pulse Oximetry [ Bilateral] 03/22/21 03/22/21 03/22/21 15:45 15:54 16:00 Temperature 99.1 F Pulse Rate 98 H 107 H Pulse Rate [ Anterior Bilateral Throughout] Pulse Rate [ 107 H From Monitor] Respiratory 20 21 Rate Respiratory Rate [Anterior Bilateral Throughout] Blood Pressure 141/82 137/80 O2 Sat by Pulse 98 97 Oximetry O2 Sat by Pulse Oximetry [ Anterior Bilateral Throughout] O2 Sat by Pulse Oximetry [ Bilateral] 03/22/21 03/22/21 03/22/21 16:15 16:30 16:45 Temperature Pulse Rate 98 H 100 H 101 H Pulse Rate [ Anterior Bilateral Throughout] Pulse Rate [ From Monitor] Respiratory 22 17 26 H Rate Respiratory Rate [Anterior Bilateral Throughout] Blood Pressure 136/79 145/62 150/87 O2 Sat by Pulse 96 96 96 Oximetry O2 Sat by Pulse Oximetry [ Anterior Bilateral Throughout] O2 Sat by Pulse Oximetry [ Bilateral] 03/22/21 03/22/21 03/22/21 17:00 17:15 17:30 Temperature Pulse Rate 99 H 102 H 98 H Pulse Rate [ Anterior Bilateral Throughout] Pulse Rate [ From Monitor] Respiratory 22 16 21 Rate Respiratory Rate [Anterior Bilateral Throughout] Blood Pressure 120/59 125/77 125/65 O2 Sat by Pulse 95 97 96 Oximetry O2 Sat by Pulse Oximetry [ Anterior Bilateral Throughout] O2 Sat by Pulse Oximetry [ Bilateral] 03/22/21 17:45 Temperature Pulse Rate 97 H Pulse Rate [ Anterior Bilateral Throughout] Pulse Rate [ From Monitor] Respiratory 25 H Rate Respiratory Rate [Anterior Bilateral Throughout] Blood Pressure 110/56 O2 Sat by Pulse 97 Oximetry O2 Sat by Pulse Oximetry [ Anterior Bilateral Throughout] O2 Sat by Pulse Oximetry [ Bilateral] - Lab 03/22/21 10:00 03/22/21 12:37 Most recent lab results ABG pH 7.245 pH Units (7.350-7.450) L 03/22/21 07:10 ABG pCO2 54.0 mm Hg 03/22/21 07:10 ABG pO2 90.6 mm Hg (80.0-90.0) H 03/22/21 07:10 ABG HCO3 22.9 mmol/L (20.0-26.0) 03/22/21 07:10 ABG O2 Saturation 96.4 % (95.0-99.0) 03/22/21 07:10 Calcium 8.5 mg/dL (8.4-10.2) 03/22/21 10:00 Phosphorus 8.60 mg/dL (2.5-4.5) H 03/20/21 04:00 Magnesium 2.20 mg/dL (1.7-2.3) 03/20/21 04:00 Urine Creatinine 40.1 mg/dL (0.1-20.0) H 03/14/21 17:50 Urine Sodium 124 mmol/L 03/14/21 17:50 Medications & Allergies - Medications Allergies/Adverse Reactions: Allergies acetaminophen [From Percocet] Adverse Reaction (Verified 03/13/21 12:45) Swelling hydrocodone bitartrate [From Vicodin] Adverse Reaction (Verified 03/13/21 12:45) Swelling oxycodone HCl [From Percocet] Adverse Reaction (Verified 03/13/21 12:45) Swelling Home Medications: Home Medications Medication Instructions Recorded Confirmed Last Taken Type Chlorhexidine Mouthwash [Peridex] 15 ml MM BID #1 bottle 10/11/20 03/13/21 Unknown Rx Clindamycin [Clindamycin CAP] 300 mg PO Q8H #21 cap 10/11/20 03/13/21 Unknown Rx Naproxen 500 mg PO Q12H PRN #12 tablet 10/11/20 03/13/21 Unknown Rx Butalb/Acetamin/Caff 50-325-40 1 - 2 tab PO Q6HR PRN #15 tab 12/05/20 03/13/21 Unknown Rx [Fioricet 50-325-40] Famotidine [Pepcid] 20 mg PO BID #30 tablet 12/05/20 03/13/21 Unknown Rx Ketorolac [Toradol] 10 mg PO Q8H PRN #20 tablet 12/05/20 03/13/21 Unknown Rx Ondansetron [Zofran Odt] 4 mg PO Q6HR PRN #20 tab.rapdis 12/05/20 03/13/21 Unknown Rx Albuterol Sulfate [Proair 90 mcg IH Q4HR PRN #2 [email or web address] 01/01/21 03/13/21 Unknown Rx Respiclick] Mupirocin [Bactroban 2% OINT] 1 applic TP BID 7 Days #1 tube 01/01/21 03/13/21 Unknown Rx Triamcinolone Aceton 0.1% (Nf) 1 applic TP BID 14 Days #1 tube 01/01/21 03/13/21 Unknown Rx [Kenalog (NF)] predniSONE [Deltasone] 40 mg PO QDAY #8 tab 01/01/21 03/13/21 Unknown Rx Active Medications: Generic Name Dose Route Start Last Admin Trade Name Freq PRN Reason Stop Dose Admin Acetaminophen 650 mg 03/13/21 19:30 Acetaminophen 325 Mg Tab PO Q4H PRN Pain MILD(1-3)/Fever >100.5/SALAS Albuterol 2.5 mg 03/19/21 00:53 Albuterol 2.5 Mg/3 Ml Nebu IH Q4HRT PRN Shortness Of Breath Albuterol/Ipratropium 1 ampul 03/19/21 08:00 03/22/21 13:37 Ipratropium/Albuterol Sulfate 3 Ml Ampul.Neb IH 1 ampul Q6HRT INESSA Administration Lipase/Protease/Amylase 1 each 03/15/21 11:42 Lipase 10,500/Protease 25,000/Amylase 43,750 (Units) Dr White FEEDTUBE PRN PRN For Clogged Feeding Tube Apixaban 2.5 mg 03/22/21 22:00 Apixaban 2.5 Mg Tab PO Q12HR INESSA Protocol Ascorbic Acid 500 mg 03/14/21 22:00 03/22/21 09:02 Ascorbic Acid 500 Mg Tab PO 500 mg BID INESSA Administration Bisacodyl 10 mg 03/22/21 22:00 Bisacodyl 10 Mg Rect Supp MD QHS INESSA Dexamethasone 6 mg 03/16/21 10:00 03/22/21 09:01 Dexamethasone 4 Mg/Ml Vial IV 03/23/21 10:01 6 mg Q24H INESSA Administration Dextrose 50 ml 03/14/21 11:02 03/15/21 11:40 Dextrose 50% In Water (25gm) 50 Ml Syringe IV 50 ml Q30MIN PRN Administration Hypoglycemia Protocol Famotidine 10 mg 03/17/21 22:00 03/22/21 09:01 Famotidine 10 Mg Tab PO 10 mg BID INESSA Administration Fentanyl 50 mcg 03/15/21 10:43 Fentanyl 100 Mcg/2 Ml Inj IV Q10MIN PRN ANALGESIA Hydralazine HCl 10 mg 03/15/21 10:10 03/15/21 10:32 Hydralazine 20 Mg/1 Ml Inj IV 10 mg Q4HR PRN Administration Hypertension Hydrophilic Ointment 1 applic 03/14/21 17:50 Lip Therapy Vaseline TP Q2HR PRN Dry Lips Propofol 1,000 mg in 100 mls @ 4.123 mls/hr 03/15/21 11:00 03/22/21 16:39 Diprivan 10 Mg/Ml IV 20 mcg/kg/min TITR INESSA 16.493 mls/hr Administration Protocol 5 MCG/KG/MIN Fentanyl Citrate 2,000 mcg in 100 mls @ 6.872 mls/hr 03/15/21 11:00 03/22/21 13:12 Fentanyl Drip Premix IV 3 mcg/kg/hr TITR INESSA 20.616 mls/hr Administration Protocol 1 MCG/KG/HR Sodium Chloride 500 mls @ 1 mls/hr 03/16/21 17:19 Nacl 0.9% 500 Ml IV DIRECT PRN ARTERIAL LINE FLUSH Vasopressin 20 unit/ Sodium 101 mls @ 9.09 mls/hr 03/21/21 16:00 03/22/21 09:50 Chloride IV 0.03 units/min TITR INESSA 9.09 mls/hr Administration Protocol 0.03 UNITS/MIN Sodium Chloride 100 mls @ 999 mls/hr 03/21/21 20:23 Nacl 0.9% IV KARLOS PRN Hypotension Cefazolin Sodium 2 gm/ Sodium 100 mls @ 200 mls/hr 03/22/21 19:00 Chloride IV Q24H [facility] Protocol Insulin Human Lispro 0 unit 03/14/21 12:00 03/22/21 13:20 Insulin Lispro 100 Unit/Ml SUB-Q Not Given Q6HR [facility] Protocol Lorazepam 1 mg 03/13/21 19:40 03/18/21 14:11 Lorazepam 2 Mg/Ml Vial IV 1 mg Q4H PRN Administration Anxiety Metoclopramide HCl 5 mg 03/21/21 16:00 03/22/21 16:42 Metoclopramide 10 Mg/2 Ml Inj IV 5 mg Q6H INESSA Administration Multi-Ingred Cream/Lotion/Oil/Oint 1 applic 03/14/21 17:50 Mineral Oil/Petrolatum, White Ophth Oint 3.5 Gm OU Q4HR PRN Dry Eye(s) Ondansetron HCl 4 mg 03/13/21 19:30 03/21/21 12:05 Ondansetron 4 Mg/2 Ml Inj IV 4 mg Q8H PRN Administration Nausea And Vomiting Senna/Docusate Sodium 1 tab 03/14/21 22:00 03/22/21 09:01 Sennosides/Docusate Sodium 8.6/50 Mg Tab FEEDTUBE 1 tab BID INESSA Administration Simple Syrup 15 ml 03/15/21 11:42 Simple Syrup 15 Ml FEEDTUBE PRN PRN Hypoglycemia Simple Syrup 30 ml 03/15/21 11:42 Simple Syrup 15 Ml FEEDTUBE PRN PRN Hypoglycemia Sodium Bicarbonate 325 mg 03/15/21 11:42 03/21/21 17:21 Sodium Bicarbonate 325 Mg Tab FEEDTUBE 325 mg PRN PRN Administration For Clogged Feeding Tube Sodium Chloride 10 ml 03/13/21 22:00 03/22/21 09:01 Sodium Chloride 0.9% 10 Ml Flush Syringe IV 10 ml BID INESSA Administration Sodium Chloride 10 ml 03/13/21 19:30 Sodium Chloride 0.9% 10 Ml Flush Syringe IV PRN PRN LINE FLUSH Zinc Sulfate 220 mg 03/14/21 22:00 03/22/21 09:02 Zinc Sulfate 220 Mg Cap PO 220 mg BID INESSA Administration
--- NOTE | 2021-03-22 18:31 | Progress Note ---
<ANCELMO GONZALEZ - Last Filed: 03/22/21 18:44> Assessment and Plan Assessment and plan: This is a 31-year-old female with history of asthma, morbid obesity, and Crohn's disease who came in complaining of severe wheezing and shortness of breath for the last 4 days that was not relieved by her home nebs and rescue inhalers. Patient was initially admitted to IMCU on bipap but was subsequently intubated due to severe respiratory distress and was unable to protect her aiway. Patient was found to have acute respiratory failure 2/2 to COVID PNA requiring vent support and SAI. Hospital Course to Date: 03/14/21- Patient is s/p intubation from this morning, sedated on propofol and fentanyl RASS -3 to -4. ETT above the clavicles advanced by 2cc. Continue nebs and IV steroids per [facility]. COVID swab pending. Hyperkalemia improved, X1 dose of kayaxalate ordered. Low BP and low urine output this am, fluid bolus challenge, 500cc of NS bolus given. Continue to monitor electrolytes and renal function, repeat BMP this afternoon. 03/15: Patient's renal function noted to be significantly worse today, patient was hyperkalemic and this was medically treated. Patient initiated on hemodialysis today. Patient disease was consulted today. 03/16: No acute events reported overnight, patient received hemodialysis yesterday. Patient is currently on propofol and fentanyl. 03/17: Patient received hemodialysis today, patient is slightly acidotic on ABG however [facility] is allowing for permissive hypercapnia, tracheal aspirate with Staph aureus and ID is aware. 03/18: Patient is having high residuals today and Reglan was started, patient will receive HD daily per nephrology, correct her change in FiO2 as tolerated. 03/19: HD per nephrology today, antibiotics changed to cefazolin. Patient did not tolerate tube feedings as she had high residuals this morning and they were turned off. Not restarted yet. Updated family at bedside today 03/20: HD today, ddimer noted to be >1000, Tolerating trickle TF. Stat BLE dopplar US 03/21: Patient is not tolerating TF, CXR shows worsening infiltrates, [facility] made c hanges to vent, TF on hold and started on IVF. 03/22/21- Patient remains intubated and on sedation. Persistent vomiting, TF held overnight, no documented BM, on reglan BR added, Shaun citarte & supp. HD today. Plan to restart TF at 10ml/hr, will reevaluate in the am. Persistent thrombocytopenia, Hep on hold, HIT panel ordered, PO eliquis initiated. Assessment and Plan #Neuro: Sedated - Intubated and sedated on propofol and fentanyl RASS -2 - Titrate sedation for RASS goal 0 to -2 - Daily SAT and SBT per CCM - Avoid benzodiazepine's, reduce the possibility of delirium - Prn analgesia for CPOT greater than 3 - Maintenance of sleep-wake cycle -Bilateral wrist restraints in place for safety #CV:Tachycardia #HTN - ST on the monitor - Normotensive - Continue blood pressure monitor per protocol - Maintain MAP above 65 - AC swithced to Eliquis - C/f for HIT, HIT panel pending #Acute Respiratory Failure #RUL PNA #Asthma Exacerbation #Bronchospasm- resolved - 03/13 CXR- possible minimal patchy RUL pneumonia - 03/14 CXR- increasing patchy parenchymal opacities bilaterally - C/f for aspiration while patient was on Bipap - Intubated on 03/14 for airway protection - High Peak pressure post intubation--> bronchospasm - COVID swab positive - Vent setting: PRVC- 90%,14,25,500 - AM ABG noted - CCM consulted, appreciate recommendations - vent setting was adjusted - repeat ABG in the am - Continue IV Steroids and Nebs per CCM - VAP bundle addressed - Aspiration precaution HOB above 30 - Daily SBT and SAT trials as tolerated - Daily ABG and CXR - Continue SPO2 monitoring for SPO2 goal above 92% #GI: Projectile Vomitting - Patient on enteral nutrition, TF held overnight due to vomitting - no documented BM - BR adjusted, X1 dose of mag citrate and Supp - Continue BR: colace and senokot - Continue Pepcid and reglan - PRN entiemetic for N/V #:Acute Kidney Injury most likely ATN #Hyperkalemia - Initial cr. was 0.8-- up to 8.7 this am - K 5.4 - HD was initiated on 03/15 - Patient is oliguric - Plan for HD today per Nephro - Strict intake and output - Avoid nephrotoxic medications; Renally dose medications - Monitor and replace electrolytes as needed - Nephro on consult #ID:COVID Pneumonia #Possible aspiration Pneumonia #Leukocytosis- improved - WBCs as high as 20, 8.9 this am - TMAx 100.8 - COVID swab positive - 03/13 BC x2 no growth to date - 03/14 tracheal aspirate with Staph aureus (ID aware) - Patient received X1 dose of redemsevir, was D/C due to worsen renal function - Received actemra - Continue IV Abx- Rocephin per ID - Trend COVID-19 inflammatory markers - Isolation/droplet precautions - On Vitamin C/vitamin D/zinc - Daily CBC monitor - ID on consult #Endo: Hyperglycemia - Hemoglobin A1c 6.3 - Continue SSI Q6hrs - While critically ill target blood glucose of 140-180 - Avoid hypoglycemia The high probability of a clinically significant, sudden or life threatening det erioration of the [multiple] system(s) required my full and direct attention, intervention and personal management. The aggregate critical care time was [60] minutes. This time is in addition to time spent performing reported procedures but includes the following: [x] Data Review and interpretation [x] Patient assessment and monitoring of vital signs [x] Documentation [x] Medication orders and management Disposition Plan: ICU Total Time Spent with Patient (Minutes): 60 History Interval history: Patient is seen and examined at the bedside. Patient remains on the vent and sedated. Persistent projectile vomiting overnight, TF held Hospitalist Physical - Constitutional Vitals: Temp Pulse Resp BP Pulse Ox 99.1 F 101 H 26 H 138/95 98 03/22/21 15:54 03/22/21 18:00 03/22/21 18:00 03/22/21 18:00 03/22/21 18:00 General appearance: Present: no acute distress, well-nourished, obese, other (Intubated and sedated) - EENT Eyes: Present: PERRL ENT: clear oral mucosa - Respiratory Respiratory effort: normal Respiratory: bilateral: diminished - Cardiovascular Rhythm: regular Heart Sounds: Present: S1 & S2 - Extremities Extremities: no ischemia, pulses intact, pulses symmetrical Extremity abnormal: edema - Peripheral Assessment Generalized Edema Type: Non-pitting Edema Degree: 1+ Capillary Refill: < 3 seconds Skin Temperature: Warm Peripheral Pulses: within normal limits - Abdominal General gastrointestinal: soft, non-tender, normal bowel sounds - Integumentary Integumentary: Present: clear, warm, dry - Psychiatric Psychiatric: other (Intubated and sedated) - Neurologic Neurologic: other (Intubated and sedated) - Allied Health Allied health notes reviewed: nursing Results - Labs CBC & Chem 7: 03/22/21 10:00 03/22/21 12:37 Labs: Laboratory Last Values WBC 8.9 K/mm3 (4.5-11.0) 03/22/21 10:00 RBC 3.05 M/mm3 (3.65-5.03) L 03/22/21 10:00 Hgb 8.4 gm/dl (10.1-14.3) L 03/22/21 10:00 Hct 25.5 % (30.3-42.9) L 03/22/21 10:00 MCV 84 fl (79-97) 03/22/21 10:00 MCH 28 pg (28-32) 03/22/21 10:00 MCHC 33 % (30-34) 03/22/21 10:00 RDW 17.5 % (13.2-15.2) H 03/22/21 10:00 Plt Count 108 K/mm3 (140-440) L 03/22/21 10:00 Lymph % (Auto) 7.8 % (13.4-35.0) L 03/14/21 06:21 Treasure % (Auto) 6.7 % (0.0-7.3) 03/14/21 06:21 Eos % (Auto) 0.0 % (0.0-4.3) 03/14/21 06:21 Baso % (Auto) 0.1 % (0.0-1.8) 03/14/21 06:21 Lymph # (Auto) 1.6 K/mm3 (1.2-5.4) 03/14/21 06:21 Treasure # (Auto) 1.3 K/mm3 (0.0-0.8) H 03/14/21 06:21 Eos # (Auto) 0.0 K/mm3 (0.0-0.4) 03/14/21 06:21 Baso # (Auto) 0.0 K/mm3 (0.0-0.1) 03/14/21 06:21 Seg Neutrophils % 85.4 % (40.0-70.0) H 03/14/21 06:21 Seg Neutrophils # 17.1 K/mm3 (1.8-7.7) H 03/14/21 06:21 PT 15.8 Sec. (12.2-14.9) H 03/22/21 13:40 INR 1.14 (0.87-1.13) H 03/22/21 13:40 APTT 26.8 Sec. (24.2-36.6) 03/22/21 13:40 D-Dimer > 13410 ng/mlDDU (0-234) H 03/22/21 13:40 ABG pH 7.245 pH Units (7.350-7.450) L 03/22/21 07:10 POC ABG pCO2 55.6 mmHg (32.0-48.0) H 03/22/21 03:09 ABG pCO2 54.0 mm Hg 03/22/21 07:10 POC ABG pO2 96.5 mmHg (83-108) 03/22/21 03:09 ABG pO2 90.6 mm Hg (80.0-90.0) H 03/22/21 07:10 POC ABG HCO3 21.5 03/22/21 03:09 ABG HCO3 22.9 mmol/L (20.0-26.0) 03/22/21 07:10 ABG O2 Saturation 96.4 % (95.0-99.0) 03/22/21 07:10 ABG O2 Content 11.4 (0.0-44) 03/22/21 07:10 POC ABG Base Excess -6.3 03/22/21 03:09 ABG Base Excess -4.4 mmol/L (-2.0-3.0) L 03/22/21 07:10 ABG Hemoglobin 8.4 gm/dl (12.0-16.0) L 03/22/21 07:10 ABG Oxyhemoglobin 95.6 (94-98) 03/22/21 03:09 ABG Carboxyhemoglobin 1.5 % (0.0-5.0) 03/22/21 07:10 ABG Methemoglobin 0.6 % (0.0-1.5) 03/22/21 07:10 ABG Sodium 123.4 mmol/L (136.0-145.0) L 03/22/21 03:09 ABG Potassium 5.6 mmol/L (3.40-4.50) H 03/22/21 03:09 ABG Chloride 98.0 mmol/L (98-107) 03/22/21 03:09 ABG Glucose 106 mg/dL (65-95) H 03/22/21 03:09 Oxyhemoglobin 94.5 % (95.0-99.0) L 03/22/21 07:10 Carboxyhemoglobin 0.1 (0.5-1.5) L 03/22/21 03:09 FiO2 90 % 03/22/21 07:10 FiO2 % 90.0 03/22/21 03:09 Sodium 137 mmol/L (137-145) 03/22/21 10:00 Potassium 5.4 mmol/L (3.6-5.0) H 03/22/21 10:00 Chloride 96.8 mmol/L (98-107) L 03/22/21 10:00 Carbon Dioxide 23 mmol/L (22-30) 03/22/21 10:00 Anion Gap 23 mmol/L 03/22/21 10:00 BUN 89 mg/dL (7-17) H 03/22/21 10:00 Creatinine 8.7 mg/dL (0.6-1.2) H 03/22/21 12:37 Estimated GFR 6 ml/min 03/22/21 12:37 BUN/Creatinine Ratio 10 % 03/22/21 10:00 Glucose 131 mg/dL (65-100) H 03/22/21 10:00 POC Glucose 112 mg/dL (70-105) H 03/22/21 18:21 Hemoglobin A1c 6.3 % (4-6) H 03/15/21 05:09 Lactic Acid 2.00 mmol/L (0.7-2.0) 03/14/21 18:47 Calcium 8.5 mg/dL (8.4-10.2) 03/22/21 10:00 Phosphorus 8.60 mg/dL (2.5-4.5) H 03/20/21 04:00 Magnesium 2.20 mg/dL (1.7-2.3) 03/20/21 04:00 Ferritin 151.6 ng/mL (10.0-200.0) 03/18/21 04:30 Total Bilirubin 0.20 mg/dL (0.1-1.2) 03/17/21 05:23 AST 35 units/L (5-40) 03/17/21 05:23 ALT 24 units/L (7-56) 03/17/21 05:23 Alkaline Phosphatase 78 units/L (35-129) 03/17/21 05:23 Lactate Dehydrogenase 477 units/L (91-180) H 03/18/21 04:30 C-Reactive Protein 9.40 mg/dL (0.00-1.30) H 03/22/21 10:00 Total Protein 6.7 g/dL (6.3-8.2) 03/17/21 05:23 Albumin 3.2 g/dL (3.9-5) L 03/17/21 05:23 Albumin/Globulin Ratio 0.9 % 03/17/21 05:23 Triglycerides 285 mg/dL (2-149) H 03/17/21 05:23 Procalcitonin < 0.05 ng/mL (<0.15) 03/13/21 15:40 HCG, Qual Negative (Negative) 03/13/21 13:26 Arterial Blood Glucose 106 mg/dL (65-95) H 03/22/21 03:09 Arterial Blood Ionized Calcium 4.5 mg/dL (4.6-5.3) L 03/21/21 Unknown Urine Creatinine 40.1 mg/dL (0.1-20.0) H 03/14/21 17:50 Urine Sodium 124 mmol/L 03/14/21 17:50 Random Vancomycin 11.2 ug/mL (0-40.0) 03/20/21 04:23 Coronavirus (PCR) Positive (Negative) A 03/14/21 Unknown Hepatitis A IgM Ab Non-reactive (NonReactive) 03/15/21 05:09 Hep Bs Antigen Nonreactive (Negative) 03/15/21 05:09 Hep B Core IgM Ab Non-reactive (NonReactive) 03/15/21 05:09 Hepatitis C Antibody Non-reactive (NonReactive) 03/15/21 05:09 Bazan/IV: Voiding Method Indwelling Catheter Active Medications - Current Medications Current Medications: Generic Name Dose Route Start Last Admin Trade Name Freq PRN Reason Stop Dose Admin Acetaminophen 650 mg 03/13/21 19:30 Acetaminophen 325 Mg Tab PO Q4H PRN Pain MILD(1-3)/Fever >100.5/SALAS Albuterol 2.5 mg 03/19/21 00:53 Albuterol 2.5 Mg/3 Ml Nebu IH Q4HRT PRN Shortness Of Breath Albuterol/Ipratropium 1 ampul 03/19/21 08:00 03/22/21 13:37 Ipratropium/Albuterol Sulfate 3 Ml Ampul.Neb IH 1 ampul Q6HRT INESSA Administration Lipase/Protease/Amylase 1 each 03/15/21 11:42 Lipase 10,500/Protease 25,000/Amylase 43,750 (Units) Dr White FEEDTUBE PRN PRN For Clogged Feeding Tube Apixaban 2.5 mg 03/22/21 22:00 Apixaban 2.5 Mg Tab PO Q12HR INESSA Protocol Ascorbic Acid 500 mg 03/14/21 22:00 03/22/21 09:02 Ascorbic Acid 500 Mg Tab PO 500 mg BID INESSA Administration Bisacodyl 10 mg 03/22/21 22:00 Bisacodyl 10 Mg Rect Supp IN QHS INESSA Dexamethasone 6 mg 03/16/21 10:00 03/22/21 09:01 Dexamethasone 4 Mg/Ml Vial IV 03/23/21 10:01 6 mg Q24H INESSA Administration Dextrose 50 ml 03/14/21 11:02 03/15/21 11:40 Dextrose 50% In Water (25gm) 50 Ml Syringe IV 50 ml Q30MIN PRN Administration Hypoglycemia Protocol Famotidine 10 mg 03/17/21 22:00 03/22/21 09:01 Famotidine 10 Mg Tab PO 10 mg BID INESSA Administration Fentanyl 50 mcg 03/15/21 10:43 Fentanyl 100 Mcg/2 Ml Inj IV Q10MIN PRN ANALGESIA Hydralazine HCl 10 mg 03/15/21 10:10 03/15/21 10:32 Hydralazine 20 Mg/1 Ml Inj IV 10 mg Q4HR PRN Administration Hypertension Hydrophilic Ointment 1 applic 03/14/21 17:50 Lip Therapy Vaseline TP Q2HR PRN Dry Lips Propofol 1,000 mg in 100 mls @ 4.123 mls/hr 03/15/21 11:00 03/22/21 16:39 Diprivan 10 Mg/Ml IV 20 mcg/kg/min TITR INESSA 16.493 mls/hr Administration Protocol 5 MCG/KG/MIN Fentanyl Citrate 2,000 mcg in 100 mls @ 6.872 mls/hr 03/15/21 11:00 03/22/21 18:19 Fentanyl Drip Premix IV 3 mcg/kg/hr TITR INESSA 20.616 mls/hr Administration Protocol 1 MCG/KG/HR Sodium Chloride 500 mls @ 1 mls/hr 03/16/21 17:19 Nacl 0.9% 500 Ml IV DIRECT PRN ARTERIAL LINE FLUSH Vasopressin 20 unit/ Sodium 101 mls @ 9.09 mls/hr 03/21/21 16:00 03/22/21 09:50 Chloride IV 0.03 units/min TITR INESSA 9.09 mls/hr Administration Protocol 0.03 UNITS/MIN Sodium Chloride 100 mls @ 999 mls/hr 03/21/21 20:23 Nacl 0.9% IV KARLOS PRN Hypotension Cefazolin Sodium 2 gm/ Sodium 100 mls @ 200 mls/hr 03/22/21 19:00 Chloride IV Q24H [facility] Protocol Insulin Human Lispro 0 unit 03/14/21 12:00 03/22/21 18:22 Insulin Lispro 100 Unit/Ml SUB-Q Not Given Q6HR [facility] Protocol Lorazepam 1 mg 03/13/21 19:40 03/18/21 14:11 Lorazepam 2 Mg/Ml Vial IV 1 mg Q4H PRN Administration Anxiety Metoclopramide HCl 5 mg 03/21/21 16:00 03/22/21 16:42 Metoclopramide 10 Mg/2 Ml Inj IV 5 mg Q6H INESSA Administration Multi-Ingred Cream/Lotion/Oil/Oint 1 applic 03/14/21 17:50 Mineral Oil/Petrolatum, White Ophth Oint 3.5 Gm OU Q4HR PRN Dry Eye(s) Ondansetron HCl 4 mg 03/13/21 19:30 03/21/21 12:05 Ondansetron 4 Mg/2 Ml Inj IV 4 mg Q8H PRN Administration Nausea And Vomiting Senna/Docusate Sodium 1 tab 03/14/21 22:00 03/22/21 09:01 Sennosides/Docusate Sodium 8.6/50 Mg Tab FEEDTUBE 1 tab BID INESSA Administration Simple Syrup 15 ml 03/15/21 11:42 Simple Syrup 15 Ml FEEDTUBE PRN PRN Hypoglycemia Simple Syrup 30 ml 03/15/21 11:42 Simple Syrup 15 Ml FEEDTUBE PRN PRN Hypoglycemia Sodium Bicarbonate 325 mg 03/15/21 11:42 03/21/21 17:21 Sodium Bicarbonate 325 Mg Tab FEEDTUBE 325 mg PRN PRN Administration For Clogged Feeding Tube Sodium Chloride 10 ml 03/13/21 22:00 03/22/21 09:01 Sodium Chloride 0.9% 10 Ml Flush Syringe IV 10 ml BID INESSA Administration Sodium Chloride 10 ml 03/13/21 19:30 Sodium Chloride 0.9% 10 Ml Flush Syringe IV PRN PRN LINE FLUSH Zinc Sulfate 220 mg 03/14/21 22:00 03/22/21 09:02 Zinc Sulfate 220 Mg Cap PO 220 mg BID INESSA Administration Nutrition/Malnutrition Assess - Dietary Evaluation Nutrition/Malnutrition Findings: Nutrition Notes Start: 03/15/21 11:06 Freq: Status: Active Protocol: Document 03/19/21 16:31 GB (Rec: 03/19/21 16:37 GB [id number]) Nutrition Notes Initial or Follow up Reassessment Current Diagnosis Respiratory Failure Other Pertinent Diagnosis SOB. PMHx: asthma, morbid obesity, crohn's disease Current Diet No diet order: should be NPO - Tube Feeding Labs/Tests 03/19: BUN 55, creatinine 8.1, Ca 8.1, P 7.9 A1c 6.3 Pertinent Medications Vit C, D5(PRN), Fentanyl Citrate, Propofol 16.493ml/hr (435kcal), Zn Sulfate Height 5 ft 5 in Weight 137.438 kg [place] Body Weight (kg) 56.81 BMI 50.4 Weight change and time frame No new weights recorded at time of assessment Weight Status Morbidly Obese Subjective/Other Information Pt is intubated/sedated - continues BM: 03/18 MD note 03/19: okay to restart TF at 10ml advance 10ml/8hr as tolerated to goal. RN note: vomited 03/18 TF held for aspiration check. TF currently at 20ml/hr advancing as tolerated. Percent of energy/protein needs met: TF at goal will meet 75% or greater of minimal EEN Burn Absent Trauma Absent GI Symptoms Vomiting Difficulty In Swallowing Food Allergy No Skin Integrity/Comment No complications reported Current % PO Other Minimum of two criteria No #1 Nutrition Diagnosis Swallowing difficulty Comments: 03/17: intubation/sedation/TF continues 03/19: intubation/sedation/TF continues Etiology SOB, respiratory failure As Evidenced by Signs and Symptoms intubated/sedated (03/14) Diagnosis Progress(for reassessment Continues documentation) Is patient on ventilator? Yes Is Patient Ambulatory and/or Out of Bed No REE-([facility]-confined to bed) 2515.536 Kcal/Kg value to use for calculation 15 Approximate Energy Requirements Using 2061 kcal/Kg Calculation Used for Recommendations Kcal/kg Additional Notes Protein 0.6g/kg or greater @ 137g or greater Fluids: 1ml/kcal or per MD Nutrition Intervention Change Diet Order: NPO Nutrition Support: 03/19: Nepro @ 44ml/hr (held r/ t vomiting: restarted at 10ml/ hr advancing to goal) Flush: 155ml/4hr Total free H2O/day: TF@goal + flush = 1700ml Kcal 1,900 Protein (gm) 86 Carbohydrates (gm) 170 Fat (gm) 101 Fluid (mL) 767 Fiber (gm) 13 Goal #1 TF started and tolerated by f/ u 03/17 met, changing to nepro 03/19: nepro, post vomiting event, TF restarted @10ml advancing as tolerated. Goal #2 TF at goal by f/u 03/19: restarted at 10ml/hr advancing to goal. Currently at 20ml/hr. Follow-Up By: 03/23/21 Additional Comments f/u: TF tolerance, vent status <SAURABH ALBRECHT - Last Filed: 03/23/21 10:19> Assessment and Plan Assessment and plan: I saw and evaluated the patient. Discussed with the nurse practitioner and agree with their findings and plan as documented in this note. Hospitalist Physical - Constitutional Vitals: Temp Pulse Resp BP Pulse Ox 100.2 F H 104 H 24 101/43 95 03/23/21 07:33 03/23/21 10:15 03/23/21 10:15 03/23/21 10:15 03/23/21 10:00 Results - Labs CBC & Chem 7: 03/23/21 04:30 03/23/21 04:30 Labs: Laboratory Last Values WBC 20.1 K/mm3 (4.5-11.0) H 03/23/21 04:30 RBC 3.17 M/mm3 (3.65-5.03) L 03/23/21 04:30 Hgb 8.6 gm/dl (10.1-14.3) L 03/23/21 04:30 Hct 27.2 % (30.3-42.9) L 03/23/21 04:30 MCV 86 fl (79-97) 03/23/21 04:30 MCH 27 pg (28-32) L 03/23/21 04:30 MCHC 32 % (30-34) 03/23/21 04:30 RDW 17.4 % (13.2-15.2) H 03/23/21 04:30 Plt Count 118 K/mm3 (140-440) L 03/23/21 04:30 Lymph % (Auto) 7.8 % (13.4-35.0) L 03/14/21 06:21 Treasure % (Auto) 6.7 % (0.0-7.3) 03/14/21 06:21 Eos % (Auto) 0.0 % (0.0-4.3) 03/14/21 06:21 Baso % (Auto) 0.1 % (0.0-1.8) 03/14/21 06:21 Lymph # (Auto) 1.6 K/mm3 (1.2-5.4) 03/14/21 06:21 Treasure # (Auto) 1.3 K/mm3 (0.0-0.8) H 03/14/21 06:21 Eos # (Auto) 0.0 K/mm3 (0.0-0.4) 03/14/21 06:21 Baso # (Auto) 0.0 K/mm3 (0.0-0.1) 03/14/21 06:21 Seg Neutrophils % 85.4 % (40.0-70.0) H 03/14/21 06:21 Seg Neutrophils # 17.1 K/mm3 (1.8-7.7) H 03/14/21 06:21 PT 15.8 Sec. (12.2-14.9) H 03/22/21 13:40 INR 1.14 (0.87-1.13) H 03/22/21 13:40 APTT 26.8 Sec. (24.2-36.6) 03/22/21 13:40 D-Dimer > 79841 ng/mlDDU (0-234) H 03/22/21 13:40 ABG pH 7.190 (7.320-7.450) L 03/23/21 08:44 POC ABG pCO2 57.9 mmHg (32.0-48.0) H 03/23/21 08:44 ABG pCO2 67.1 mm Hg 03/22/21 21:25 POC ABG pO2 79.2 mmHg (83-108) L 03/23/21 08:44 ABG pO2 97.9 mm Hg (80.0-90.0) H 03/22/21 21:25 POC ABG HCO3 7.0 03/23/21 08:44 ABG HCO3 25.0 mmol/L (20.0-26.0) 03/22/21 21:25 ABG O2 Saturation 93.0 (0-100) 03/23/21 08:44 ABG O2 Content 12.4 (0.0-44) 03/22/21 21:25 POC ABG Base Excess -7 03/23/21 08:44 ABG Base Excess -3.7 mmol/L (-2.0-3.0) L 03/22/21 21:25 ABG Hemoglobin 11.8 (12.0-17.5) L 03/23/21 08:44 ABG Oxyhemoglobin 93.0 (94-98) L 03/23/21 08:44 ABG Carboxyhemoglobin 1.4 % (0.0-5.0) 03/22/21 21:25 ABG Methemoglobin 0.3 (0.0-1.5) 03/23/21 08:44 ABG Sodium 131.0 mmol/L (136.0-145.0) L 03/23/21 08:44 ABG Potassium 5.0 mmol/L (3.40-4.50) H 03/23/21 08:44 ABG Chloride 100.0 mmol/L (98-107) 03/23/21 08:44 ABG Glucose 122 mg/dL (65-95) H 03/23/21 08:44 Oxyhemoglobin 94.4 % (95.0-99.0) L 03/22/21 21:25 Carboxyhemoglobin 0.4 (0.5-1.5) L 03/23/21 08:44 FiO2 85 % 03/22/21 21:25 FiO2 % 0.8 03/23/21 08:44 Sodium 138 mmol/L (137-145) 03/23/21 04:30 Potassium 5.2 mmol/L (3.6-5.0) H 03/23/21 04:30 Chloride 97.1 mmol/L (98-107) L 03/23/21 04:30 Carbon Dioxide 21 mmol/L (22-30) L 03/23/21 04:30 Anion Gap 25 mmol/L 03/23/21 04:30 BUN 82 mg/dL (7-17) H 03/23/21 04:30 Creatinine 9.1 mg/dL (0.6-1.2) H 03/23/21 04:30 Estimated GFR 6 ml/min 03/23/21 04:30 BUN/Creatinine Ratio 9 % 03/23/21 04:30 Glucose 109 mg/dL (65-100) H 03/23/21 04:30 POC Glucose 130 mg/dL (70-105) H 03/23/21 05:37 Hemoglobin A1c 6.3 % (4-6) H 03/15/21 05:09 Lactic Acid 2.00 mmol/L (0.7-2.0) 03/14/21 18:47 Calcium 8.6 mg/dL (8.4-10.2) 03/23/21 04:30 Phosphorus 10.80 mg/dL (2.5-4.5) H 03/23/21 04:30 Magnesium 3.50 mg/dL (1.7-2.3) H 03/23/21 04:30 Ferritin 151.6 ng/mL (10.0-200.0) 03/18/21 04:30 Total Bilirubin 0.20 mg/dL (0.1-1.2) 03/17/21 05:23 AST 35 units/L (5-40) 03/17/21 05:23 ALT 24 units/L (7-56) 03/17/21 05:23 Alkaline Phosphatase 78 units/L (35-129) 03/17/21 05:23 Lactate Dehydrogenase 477 units/L (91-180) H 03/18/21 04:30 C-Reactive Protein 9.40 mg/dL (0.00-1.30) H 03/22/21 10:00 Total Protein 6.7 g/dL (6.3-8.2) 03/17/21 05:23 Albumin 3.2 g/dL (3.9-5) L 03/17/21 05:23 Albumin/Globulin Ratio 0.9 % 03/17/21 05:23 Triglycerides 381 mg/dL (2-149) H 03/23/21 04:30 Procalcitonin < 0.05 ng/mL (<0.15) 03/13/21 15:40 HCG, Qual Negative (Negative) 03/13/21 13:26 Arterial Blood Glucose 122 mg/dL (65-95) H 03/23/21 08:44 Arterial Blood Ionized Calcium 4.4 mg/dL (4.6-5.3) L 03/23/21 08:44 Urine Creatinine 40.1 mg/dL (0.1-20.0) H 03/14/21 17:50 Urine Sodium 124 mmol/L 03/14/21 17:50 Random Vancomycin 11.2 ug/mL (0-40.0) 03/20/21 04:23 Coronavirus (PCR) Positive (Negative) A 03/14/21 Unknown Hepatitis A IgM Ab Non-reactive (NonReactive) 03/15/21 05:09 Hep Bs Antigen Nonreactive (Negative) 03/15/21 05:09 Hep B Core IgM Ab Non-reactive (NonReactive) 03/15/21 05:09 Hepatitis C Antibody Non-reactive (NonReactive) 03/15/21 05:09 Bazan/IV: Voiding Method Indwelling Catheter Active Medications - Current Medications Current Medications: Generic Name Dose Route Start Last Admin Trade Name Freq PRN Reason Stop Dose Admin Acetaminophen 650 mg 03/13/21 19:30 Acetaminophen 325 Mg Tab PO Q4H PRN Pain MILD(1-3)/Fever >100.5/SALAS Albuterol 2.5 mg 03/19/21 00:53 Albuterol 2.5 Mg/3 Ml Nebu IH Q4HRT PRN Shortness Of Breath Albuterol/Ipratropium 1 ampul 03/19/21 08:00 03/23/21 07:49 Ipratropium/Albuterol Sulfate 3 Ml Ampul.Neb IH Not Given Q6HRT INESSA Lipase/Protease/Amylase 1 each 03/15/21 11:42 Lipase 10,500/Protease 25,000/Amylase 43,750 (Units) Dr Cap FEEDTUBE PRN PRN For Clogged Feeding Tube Apixaban 2.5 mg 03/22/21 22:00 03/23/21 09:08 Apixaban 2.5 Mg Tab PO 2.5 mg Q12HR INESSA Administration Protocol Ascorbic Acid 500 mg 03/14/21 22:00 03/23/21 09:08 Ascorbic Acid 500 Mg Tab PO 500 mg BID INESSA Administration Bisacodyl 10 mg 03/22/21 22:00 03/22/21 21:28 Bisacodyl 10 Mg Rect Supp IN Not Given QHS INESSA Dextrose 50 ml 03/14/21 11:02 03/15/21 11:40 Dextrose 50% In Water (25gm) 50 Ml Syringe IV 50 ml Q30MIN PRN Administration Hypoglycemia Protocol Famotidine 10 mg 03/17/21 22:00 03/23/21 09:07 Famotidine 10 Mg Tab PO 10 mg BID INESSA Administration Fentanyl 50 mcg 03/15/21 10:43 Fentanyl 100 Mcg/2 Ml Inj IV Q10MIN PRN ANALGESIA Hydralazine HCl 10 mg 03/15/21 10:10 03/15/21 10:32 Hydralazine 20 Mg/1 Ml Inj IV 10 mg Q4HR PRN Administration Hypertension Hydrophilic Ointment 1 applic 03/14/21 17:50 Lip Therapy Vaseline TP Q2HR PRN Dry Lips Propofol 1,000 mg in 100 mls @ 4.123 mls/hr 03/15/21 11:00 03/23/21 07:50 Diprivan 10 Mg/Ml IV 25 mcg/kg/min TITR INESSA 20.616 mls/hr Administration Protocol 5 MCG/KG/MIN Fentanyl Citrate 2,000 mcg in 100 mls @ 6.872 mls/hr 03/15/21 11:00 03/23/21 09:06 Fentanyl Drip Premix IV 3 mcg/kg/hr TITR INESSA 20.616 mls/hr Administration Protocol 1 MCG/KG/HR Sodium Chloride 500 mls @ 1 mls/hr 03/16/21 17:19 Nacl 0.9% 500 Ml IV DIRECT PRN ARTERIAL LINE FLUSH Vasopressin 20 unit/ Sodium 101 mls @ 9.09 mls/hr 03/21/21 16:00 03/23/21 08:19 Chloride IV 0.03 units/min TITR INESSA 9.09 mls/hr Administration Protocol 0.03 UNITS/MIN Sodium Chloride 100 mls @ 999 mls/hr 03/21/21 20:23 Nacl 0.9% IV KARLOS PRN Hypotension Cefazolin Sodium 2 gm/ Sodium 100 mls @ 200 mls/hr 03/22/21 19:00 03/22/21 20:09 Chloride IV 03/26/21 19:29 200 mls/hr Q24H INESSA Administration Protocol Insulin Human Lispro 0 unit 03/14/21 12:00 03/23/21 06:09 Insulin Lispro 100 Unit/Ml SUB-Q Not Given Q6HR [facility] Protocol Lorazepam 1 mg 03/13/21 19:40 03/18/21 14:11 Lorazepam 2 Mg/Ml Vial IV 1 mg Q4H PRN Administration Anxiety Metoclopramide HCl 5 mg 03/21/21 16:00 03/23/21 09:37 Metoclopramide 10 Mg/2 Ml Inj IV 5 mg Q6H INESSA Administration Multi-Ingred Cream/Lotion/Oil/Oint 1 applic 03/14/21 17:50 Mineral Oil/Petrolatum, White Ophth Oint 3.5 Gm OU Q4HR PRN Dry Eye(s) Ondansetron HCl 4 mg 03/13/21 19:30 03/21/21 12:05 Ondansetron 4 Mg/2 Ml Inj IV 4 mg Q8H PRN Administration Nausea And Vomiting Senna/Docusate Sodium 1 tab 03/14/21 22:00 03/23/21 09:12 Sennosides/Docusate Sodium 8.6/50 Mg Tab FEEDTUBE Not Given BID INESSA Simple Syrup 15 ml 03/15/21 11:42 Simple Syrup 15 Ml FEEDTUBE PRN PRN Hypoglycemia Simple Syrup 30 ml 03/15/21 11:42 Simple Syrup 15 Ml FEEDTUBE PRN PRN Hypoglycemia Sodium Bicarbonate 325 mg 03/15/21 11:42 03/21/21 17:21 Sodium Bicarbonate 325 Mg Tab FEEDTUBE 325 mg PRN PRN Administration For Clogged Feeding Tube Sodium Chloride 10 ml 03/13/21 22:00 03/23/21 09:10 Sodium Chloride 0.9% 10 Ml Flush Syringe IV 10 ml BID INESSA Administration Sodium Chloride 10 ml 03/13/21 19:30 Sodium Chloride 0.9% 10 Ml Flush Syringe IV PRN PRN LINE FLUSH Zinc Sulfate 220 mg 03/14/21 22:00 03/23/21 09:08 Zinc Sulfate 220 Mg Cap PO 220 mg BID INESSA Administration Nutrition/Malnutrition Assess - Dietary Evaluation Nutrition/Malnutrition Findings: Nutrition Notes Start: 03/15/21 11:06 Freq: Status: Active Protocol: Document 03/19/21 16:31 GB (Rec: 03/19/21 16:37 GB [id number]) Nutrition Notes Initial or Follow up Reassessment Current Diagnosis Respiratory Failure Other Pertinent Diagnosis SOB. PMHx: asthma, morbid obesity, crohn's disease Current Diet No diet order: should be NPO - Tube Feeding Labs/Tests 03/19: BUN 55, creatinine 8.1, Ca 8.1, P 7.9 A1c 6.3 Pertinent Medications Vit C, D5(PRN), Fentanyl Citrate, Propofol 16.493ml/hr (435kcal), Zn Sulfate Height 5 ft 5 in Weight 137.438 kg [place] Body Weight (kg) 56.81 BMI 50.4 Weight change and time frame No new weights recorded at time of assessment Weight Status Morbidly Obese Subjective/Other Information Pt is intubated/sedated - continues BM: 03/18 MD note 03/19: okay to restart TF at 10ml advance 10ml/8hr as tolerated to goal. RN note: vomited 03/18 TF held for aspiration check. TF currently at 20ml/hr advancing as tolerated. Percent of energy/protein needs met: TF at goal will meet 75% or greater of minimal EEN Burn Absent Trauma Absent GI Symptoms Vomiting Difficulty In Swallowing Food Allergy No Skin Integrity/Comment No complications reported Current % PO Other Minimum of two criteria No #1 Nutrition Diagnosis Swallowing difficulty Comments: 03/17: intubation/sedation/TF continues 03/19: intubation/sedation/TF continues Etiology SOB, respiratory failure As Evidenced by Signs and Symptoms intubated/sedated (03/14) Diagnosis Progress(for reassessment Continues documentation) Is patient on ventilator? Yes Is Patient Ambulatory and/or Out of Bed No REE-([place]-confined to bed) 2515.536 Kcal/Kg value to use for calculation 15 Approximate Energy Requirements Using 2061 kcal/Kg Calculation Used for Recommendations Kcal/kg Additional Notes Protein 0.6g/kg or greater @ 137g or greater Fluids: 1ml/kcal or per MD Nutrition Intervention Change Diet Order: NPO Nutrition Support: 03/19: Nepro @ 44ml/hr (held r/ t vomiting: restarted at 10ml/ hr advancing to goal) Flush: 155ml/4hr Total free H2O/day: TF@goal + flush = 1700ml Kcal 1,900 Protein (gm) 86 Carbohydrates (gm) 170 Fat (gm) 101 Fluid (mL) 767 Fiber (gm) 13 Goal #1 TF started and tolerated by f/ u 03/17 met, changing to nepro 03/19: nepro, post vomiting event, TF restarted @10ml advancing as tolerated. Goal #2 TF at goal by f/u 03/19: restarted at 10ml/hr advancing to goal. Currently at 20ml/hr. Follow-Up By: 03/23/21 Additional Comments f/u: TF tolerance, vent status
[2021-03-22] MEDS: APIXABAN 2.5 MG TAB PO SCH (21:29)
[2021-03-22 21:32] LABS: ABG Base Excess -3.7 mmol/L (-2.0-3.0); ABG Methemoglobin 0.6 % (0.0-1.5); ABG Oxygen Saturation 96.3 % (95.0-99.0); ABG PCO2 67.1 mm Hg; ABG PO2 97.9 mm Hg (80.0-90.0)
[2021-03-22 21:37] LABS: ABG PH 7.188 pH Units (7.350-7.450)
[2021-03-23] MEDS: INSULIN LISPRO 100 UNIT/ML SUB-Q SCH ×4 (00:49→18:25)
[2021-03-23] MEDS: IPRATROPIUM/ALBUTEROL SULFATE 3 ML AMPUL.NEB IH SCH ×4 (02:32→20:25)
[2021-03-23] MEDS: METOCLOPRAMIDE 10 MG/2 ML INJ IV SCH ×5 (04:22→21:09)
[2021-03-23] MEDS: fentaNYL DRIP Premix 2,000 MCG/100 ML BAG IV SCH ×5 (04:48→23:12)
[2021-03-23 05:09] LABS: Hematocrit 27.2 % (30.3-42.9); Hemoglobin 8.6 gm/dl (10.1-14.3); Mean Corpuscular HGB Conc 32 % (30-34); Mean Corpuscular Volume 86 fl (79-97); Platelet Count 118 K/mm3 (140-440); Red Blood Count 3.17 M/mm3 (3.65-5.03); Red Cell Distribution Width 17.4 % (13.2-15.2)
[2021-03-23 05:27] LABS: Calcium 8.6 mg/dL (8.4-10.2)
[2021-03-23] MEDS: VASOPRESSIN 20 UNIT in SODIUM CHLORIDE 0.9% 100 ML IV SCH ×2 (08:19→21:44)
[2021-03-23] MEDS: FAMOTIDINE 10 MG TAB PO SCH ×2 (09:07→21:11)
[2021-03-23] MEDS: ASCORBIC ACID 500 MG TAB PO SCH ×2 (09:08→21:11)
[2021-03-23] MEDS: dexAMETHasone 4 MG/ML VIAL IV SCH ×2 (09:08→09:39)
[2021-03-23] MEDS: APIXABAN 2.5 MG TAB PO SCH ×2 (09:08→21:10)
[2021-03-23] MEDS: ZINC SULFATE 220 MG CAP PO SCH ×2 (09:08→21:11)
[2021-03-23] MEDS: SENNOSIDES/DOCUSATE SODIUM 8.6/50 MG TAB FEEDTUBE SCH ×2 (09:12→21:12)
[2021-03-23] MEDS: ACETYLCYSTEINE 20% 200 MG/1 ML *FOR INHALATION USE INHALATION SCH (09:14)
--- NOTE | 2021-03-23 09:31 | Progress Note ---
Assessment and Plan Acute hypoxemic respiratory failure Acute asthma exacerbation Morbid obesity Crohn's disease Metabolic acidosis Acute kidney injury Coronavirus infection Pneumonia (CAP) Oropharyngeal dysphagia Obesity, if not mentioned above - follow HIT assay - continue Apixaban for VTE prophylaxis - repeat ABG at 9 pm - trickle feeding - lower extremity dopplers negative for VTE - nephrology input appreciated; HD/UF for toxin and volume clearance - continue care as below otherwise; - HD/UF sessions per nephrology prescription - vasopressors for target MAP > 65 mmHg - continue Daily SAT and SBT assessment as tolerated - continue to wean supplemental oxygen for target O2 sat's > 90% acutely - VAP bundle addressed - continue lung protective strategies - continue bronchodilators with pulmonary hygiene per RT - wean per pulmonary driven protocols otherwise - continue accuchecks with glycemic control per SSI (While critically ill target blood glucose of 140-180 mg/dL; avoid hypoglycemia) - sedation prn for target RASS 0 to -1 - avoid nephrotoxins, renally dose all medications - continue to avoid benzodiazepine's, reduce the possibility of delirium - AB's per ID rec's - prn analgesia per CPOT score - Maintenance of sleep-wake cycle, avoid delirium - continue enteral nutritional support at goal rate as tolerated - G.I. & VTE prophylaxis - PT/OT/ROM exercises - continue mobility protocols for pressure ulcer prophylaxis - Monitor hemodynamics closely - continue other care per attending / other consultants - discharge planning ongoing concurrently COVID SPECIFIC INTERVENTIONS - Actemra ordered if available - Remdesivir as per ID/Pulmonary developed protocols (not a candidate) - continue systemic steroids for severe COVID-19 infection empirically - follow repeat COVID tests results - zinc and vitamin C supplementation - Monitor inflammatory markers per facility protocol - ferritin, Ddimer, CRP - therapeutic anticoagulation per system Protocol based on d-dimer and clinical considerations (VTE prophylaxis) - Continue contact and airborne isolation .... Re-evaluate in am & prn CONDITION: CRITICAL PROGNOSIS: GUARDED CODE STATUS: FULL CODE The high probability of a clinically significant, sudden or life-threatening deterioration of the [respiratory, cardiovascular, renal & neurologic] system(s) required my full and direct attention, intervention and personal management. The aggregate critical care time was [33] minutes without overlap. Time includes spent on; [x] Data Review and interpretation [x] Patient assessment and monitoring of vital signs [x] Documentation [x] Medication orders and management Subjective Date of service: 03/23/21 Principal diagnosis: Ac hypoxemic resp failure; AE-Asthma; SAI; Crohn's; COVID- 19; Pneumonia Interval history: Patient is seen today for: Acute hypoxemic respiratory failure; AE-Asthma; SAI; Crohn's disease; COVID-19 infection; Pneumonia (CAP) Seen and examined at bedside; 24hour events reviewed; nursing and respiratory care staff consulted; no adverse overnight events reported to me; resting in bed; good BM reported overnight; no emesis or overt aspiration; remains on MVS; no gross bleeding Objective Vital Signs - 12hr 03/22/21 03/22/21 03/22/21 21:30 21:45 22:00 Temperature Pulse Rate 106 H 104 H 102 H Pulse Rate [ Anterior Bilateral Throughout] Pulse Rate [ From Monitor] Respiratory 26 H 28 H 28 H Rate Respiratory Rate [Anterior Bilateral Throughout] Blood Pressure 124/64 132/75 120/62 O2 Sat by Pulse 97 98 97 Oximetry 03/22/21 03/22/21 03/22/21 22:14 22:15 22:30 Temperature Pulse Rate 96 H 97 H Pulse Rate [ Anterior Bilateral Throughout] Pulse Rate [ From Monitor] Respiratory 24 22 Rate Respiratory Rate [Anterior Bilateral Throughout] Blood Pressure 113/47 107/57 O2 Sat by Pulse 94 96 98 Oximetry 03/22/21 03/22/21 03/22/21 22:45 23:00 23:16 Temperature Pulse Rate 99 H 122 H 129 H Pulse Rate [ Anterior Bilateral Throughout] Pulse Rate [ From Monitor] Respiratory 23 29 H Rate Respiratory Rate [Anterior Bilateral Throughout] Blood Pressure 122/84 122/84 122/84 O2 Sat by Pulse 97 80 L 87 Oximetry 03/22/21 03/22/21 03/22/21 23:30 23:40 23:45 Temperature Pulse Rate 123 H 119 H 115 H Pulse Rate [ Anterior Bilateral Throughout] Pulse Rate [ From Monitor] Respiratory 31 H 30 H 32 H Rate Respiratory Rate [Anterior Bilateral Throughout] Blood Pressure 143/97 143/97 119/60 O2 Sat by Pulse 86 92 93 Oximetry 03/23/21 03/23/21 03/23/21 00:00 00:15 00:22 Temperature 99.2 F Pulse Rate 107 H 106 H 105 H Pulse Rate [ Anterior Bilateral Throughout] Pulse Rate [ 123 H From Monitor] Respiratory 29 H 29 H Rate Respiratory Rate [Anterior Bilateral Throughout] Blood Pressure 97/54 94/52 94/52 O2 Sat by Pulse 94 92 90 Oximetry 03/23/21 03/23/21 03/23/21 00:30 00:45 01:00 Temperature Pulse Rate 104 H 102 H 100 H Pulse Rate [ Anterior Bilateral Throughout] Pulse Rate [ From Monitor] Respiratory 28 H 22 24 Rate Respiratory Rate [Anterior Bilateral Throughout] Blood Pressure 99/49 90/48 95/59 O2 Sat by Pulse 91 93 96 Oximetry 03/23/21 03/23/21 03/23/21 01:15 01:30 01:45 Temperature Pulse Rate 99 H 100 H 100 H Pulse Rate [ Anterior Bilateral Throughout] Pulse Rate [ From Monitor] Respiratory 28 H 25 H 25 H Rate Respiratory Rate [Anterior Bilateral Throughout] Blood Pressure 100/52 107/55 100/54 O2 Sat by Pulse 95 96 96 Oximetry 03/23/21 03/23/21 03/23/21 02:00 02:15 02:30 Temperature Pulse Rate 102 H 102 H 102 H Pulse Rate [ Anterior Bilateral Throughout] Pulse Rate [ From Monitor] Respiratory 22 Rate Respiratory Rate [Anterior Bilateral Throughout] Blood Pressure 104/49 93/51 100/52 O2 Sat by Pulse 94 95 94 Oximetry 03/23/21 03/23/21 03/23/21 02:37 02:45 03:00 Temperature Pulse Rate 105 H 107 H Pulse Rate [ 105 H Anterior Bilateral Throughout] Pulse Rate [ From Monitor] Respiratory 25 H 29 H Rate Respiratory 29 H Rate [Anterior Bilateral Throughout] Blood Pressure 107/52 113/54 O2 Sat by Pulse 86 91 Oximetry 03/23/21 03/23/21 03/23/21 03:15 03:30 03:45 Temperature Pulse Rate 109 H 109 H 110 H Pulse Rate [ Anterior Bilateral Throughout] Pulse Rate [ From Monitor] Respiratory 25 H 27 H 27 H Rate Respiratory Rate [Anterior Bilateral Throughout] Blood Pressure 106/52 107/51 91/46 O2 Sat by Pulse 92 94 92 Oximetry 03/23/21 03/23/21 03/23/21 04:00 04:15 04:30 Temperature 98.7 F Pulse Rate 111 H 110 H 112 H Pulse Rate [ Anterior Bilateral Throughout] Pulse Rate [ 123 H From Monitor] Respiratory 25 H 26 H 15 Rate Respiratory Rate [Anterior Bilateral Throughout] Blood Pressure 101/46 105/47 100/64 O2 Sat by Pulse 92 92 96 Oximetry 03/23/21 03/23/21 03/23/21 04:40 04:45 05:00 Temperature Pulse Rate 114 H 115 H 114 H Pulse Rate [ Anterior Bilateral Throughout] Pulse Rate [ From Monitor] Respiratory 24 28 H Rate Respiratory Rate [Anterior Bilateral Throughout] Blood Pressure 100/64 111/60 116/55 O2 Sat by Pulse 94 91 93 Oximetry 03/23/21 03/23/21 03/23/21 05:15 05:30 05:45 Temperature Pulse Rate 113 H 112 H 111 H Pulse Rate [ Anterior Bilateral Throughout] Pulse Rate [ From Monitor] Respiratory 27 H 25 H 23 Rate Respiratory Rate [Anterior Bilateral Throughout] Blood Pressure 111/55 120/48 94/49 O2 Sat by Pulse 93 93 93 Oximetry 03/23/21 03/23/21 03/23/21 06:00 06:15 06:30 Temperature Pulse Rate 109 H 109 H 109 H Pulse Rate [ Anterior Bilateral Throughout] Pulse Rate [ From Monitor] Respiratory 26 H 24 23 Rate Respiratory Rate [Anterior Bilateral Throughout] Blood Pressure 104/52 96/48 105/50 O2 Sat by Pulse 94 94 94 Oximetry 03/23/21 03/23/21 03/23/21 06:45 07:00 07:15 Temperature Pulse Rate 110 H 111 H 110 H Pulse Rate [ Anterior Bilateral Throughout] Pulse Rate [ From Monitor] Respiratory 19 18 25 H Rate Respiratory Rate [Anterior Bilateral Throughout] Blood Pressure 112/54 107/53 113/52 O2 Sat by Pulse 94 96 95 Oximetry 03/23/21 03/23/21 03/23/21 07:30 07:33 07:45 Temperature 100.2 F H Pulse Rate 109 H 111 H Pulse Rate [ Anterior Bilateral Throughout] Pulse Rate [ From Monitor] Respiratory 20 23 Rate Respiratory Rate [Anterior Bilateral Throughout] Blood Pressure 100/48 96/48 O2 Sat by Pulse 95 95 Oximetry 03/23/21 03/23/21 03/23/21 07:50 08:00 08:15 Temperature Pulse Rate 111 H 109 H 107 H Pulse Rate [ Anterior Bilateral Throughout] Pulse Rate [ 109 H From Monitor] Respiratory 24 22 Rate Respiratory Rate [Anterior Bilateral Throughout] Blood Pressure 96/48 93/49 86/36 O2 Sat by Pulse 96 94 94 Oximetry Constitutional: no acute distress, other (morbidly obese female with mild ventilator dyssynchrony) Eyes: non-icteric ENT: oropharynx moist, other (ETT 25 cm BALJINDER) Neck: supple, no lymphadenopathy, no JVD, other (large circumference) Effort: mildly labored Ascultation: Bilateral: diminished breath sounds, rhonchi Percussion: Bilateral: not dull Cardiovascular: regular rate and rhythm Gastrointestinal: normoactive bowel sounds, soft, non-tender, non-distended (protuberant) Integumentary: normal Extremities: no cyanosis, no edema, pulses normal, no ischemia or petechiae Neurologic: non-focal exam (grossly), pupils equal and round, CN II-XII normal, motor strength normal and, other (moves all extremities spontaneously) Psychiatric: other (unasble to assess) CBC and BMP: 03/24/21 04:00 03/24/21 04:00 ABG, PT/INR, D-dimer: ABG ABG pH 7.190 (7.320-7.450) L 03/23/21 08:44 POC ABG pCO2 57.9 mmHg (32.0-48.0) H 03/23/21 08:44 ABG pCO2 67.1 mm Hg 03/22/21 21:25 POC ABG pO2 79.2 mmHg (83-108) L 03/23/21 08:44 ABG pO2 97.9 mm Hg (80.0-90.0) H 03/22/21 21:25 POC ABG HCO3 7.0 03/23/21 08:44 ABG O2 Saturation 93.0 (0-100) 03/23/21 08:44 PT/INR, D-dimer PT 15.8 Sec. (12.2-14.9) H 03/22/21 13:40 INR 1.14 (0.87-1.13) H 03/22/21 13:40 D-Dimer > 91324 ng/mlDDU (0-234) H 03/22/21 13:40 Abnormal lab findings: Abnormal Labs 03/13/21 03/13/21 03/13/21 13:26 13:26 15:40 WBC RBC Hgb Hct MCH 27 L RDW 17.0 H Plt Count Lymph % (Auto) Burt # (Auto) Seg Neutrophils % Seg Neutrophils # PT INR D-Dimer ABG pH POC ABG pCO2 POC ABG pO2 ABG pO2 ABG HCO3 ABG O2 Saturation ABG Base Excess ABG Hemoglobin ABG Oxyhemoglobin ABG Sodium ABG Potassium ABG Glucose Oxyhemoglobin Carboxyhemoglobin Sodium 136 L Potassium Chloride Carbon Dioxide BUN Creatinine Glucose 125 H 130 H POC Glucose Hemoglobin A1c Calcium Phosphorus Magnesium Lactate Dehydrogenase 235 H C-Reactive Protein 4.30 H Total Protein Albumin Triglycerides Arterial Blood Glucose Arterial Blood Ionized Calcium Urine Creatinine Random Vancomycin Coronavirus (PCR) 03/13/21 03/14/21 03/14/21 21:33 03:35 06:21 WBC 20.0 H RBC Hgb Hct MCH 27 L RDW 17.5 H Plt Count Lymph % (Auto) 7.8 L Burt # (Auto) 1.3 H Seg Neutrophils % 85.4 H Seg Neutrophils # 17.1 H PT INR D-Dimer ABG pH 7.323 L 7.234 L POC ABG pCO2 POC ABG pO2 ABG pO2 69.8 L ABG HCO3 ABG O2 Saturation 92.9 L 94.9 L ABG Base Excess -3.3 L -5.4 L ABG Hemoglobin ABG Oxyhemoglobin ABG Sodium ABG Potassium ABG Glucose Oxyhemoglobin 91.2 L 93.2 L Carboxyhemoglobin Sodium Potassium Chloride Carbon Dioxide BUN Creatinine Glucose POC Glucose Hemoglobin A1c Calcium Phosphorus Magnesium Lactate Dehydrogenase C-Reactive Protein Total Protein Albumin Triglycerides Arterial Blood Glucose Arterial Blood Ionized Calcium Urine Creatinine Random Vancomycin Coronavirus (PCR) 03/14/21 03/14/21 03/14/21 06:21 07:47 11:21 WBC RBC Hgb Hct MCH RDW Plt Count Lymph % (Auto) Burt # (Auto) Seg Neutrophils % Seg Neutrophils # PT INR D-Dimer ABG pH POC ABG pCO2 POC ABG pO2 ABG pO2 ABG HCO3 ABG O2 Saturation ABG Base Excess ABG Hemoglobin ABG Oxyhemoglobin ABG Sodium ABG Potassium ABG Glucose Oxyhemoglobin Carboxyhemoglobin Sodium 136 L 136 L Potassium 6.2 H* D 5.4 H Chloride Carbon Dioxide 21 L 21 L BUN Creatinine 1.5 H D 1.8 H Glucose 144 H 141 H POC Glucose 147 H Hemoglobin A1c Calcium Phosphorus Magnesium Lactate Dehydrogenase C-Reactive Protein Total Protein 8.7 H 9.2 H Albumin 3.8 L Triglycerides Arterial Blood Glucose Arterial Blood Ionized Calcium Urine Creatinine Random Vancomycin Coronavirus (PCR) 03/14/21 03/14/21 03/14/21 17:29 17:50 18:35 WBC RBC Hgb Hct MCH RDW Plt Count Lymph % (Auto) Burt # (Auto) Seg Neutrophils % Seg Neutrophils # PT INR D-Dimer ABG pH POC ABG pCO2 POC ABG pO2 ABG pO2 ABG HCO3 ABG O2 Saturation ABG Base Excess ABG Hemoglobin ABG Oxyhemoglobin ABG Sodium ABG Potassium ABG Glucose Oxyhemoglobin Carboxyhemoglobin Sodium 135 L Potassium 6.4 H* Chloride Carbon Dioxide 15 L BUN 26 H Creatinine 3.4 H D Glucose 165 H POC Glucose 209 H Hemoglobin A1c Calcium Phosphorus Magnesium Lactate Dehydrogenase C-Reactive Protein Total Protein Albumin Triglycerides Arterial Blood Glucose Arterial Blood Ionized Calcium Urine Creatinine 40.1 H Random Vancomycin Coronavirus (PCR) 03/14/21 03/14/21 03/14/21 18:46 22:23 23:52 WBC RBC Hgb Hct MCH RDW Plt Count Lymph % (Auto) Burt # (Auto) Seg Neutrophils % Seg Neutrophils # PT INR D-Dimer ABG pH 7.270 L POC ABG pCO2 POC ABG pO2 63.4 L ABG pO2 ABG HCO3 ABG O2 Saturation ABG Base Excess ABG Hemoglobin ABG Oxyhemoglobin 90.2 L ABG Sodium 134.9 L ABG Potassium 5.3 H ABG Glucose 134 H Oxyhemoglobin Carboxyhemoglobin Sodium 136 L Potassium 5.2 H Chloride Carbon Dioxide 20 L BUN 29 H Creatinine 3.6 H Glucose 236 H POC Glucose 128 H Hemoglobin A1c Calcium Phosphorus Magnesium Lactate Dehydrogenase C-Reactive Protein Total Protein Albumin 3.2 L Triglycerides Arterial Blood Glucose 134 H Arterial Blood Ionized Calcium Urine Creatinine Random Vancomycin Coronavirus (PCR) 03/14/21 03/15/21 03/15/21 Unknown 05:00 05:09 WBC 22.5 H RBC Hgb Hct MCH 27 L RDW 17.6 H Plt Count Lymph % (Auto) Burt # (Auto) Seg Neutrophils % Seg Neutrophils # PT INR D-Dimer ABG pH POC ABG pCO2 POC ABG pO2 ABG pO2 ABG HCO3 ABG O2 Saturation ABG Base Excess ABG Hemoglobin ABG Oxyhemoglobin ABG Sodium ABG Potassium ABG Glucose Oxyhemoglobin Carboxyhemoglobin Sodium Potassium Chloride Carbon Dioxide BUN Creatinine Glucose POC Glucose 116 H Hemoglobin A1c Calcium Phosphorus Magnesium Lactate Dehydrogenase C-Reactive Protein Total Protein Albumin Triglycerides Arterial Blood Glucose Arterial Blood Ionized Calcium Urine Creatinine Random Vancomycin Coronavirus (PCR) Positive A 1103/15/21 03/15/21 05:09 05:09 05:09 WBC RBC Hgb Hct MCH RDW Plt Count Lymph % (Auto) Burt # (Auto) Seg Neutrophils % Seg Neutrophils # PT INR D-Dimer ABG pH POC ABG pCO2 POC ABG pO2 ABG pO2 ABG HCO3 ABG O2 Saturation ABG Base Excess ABG Hemoglobin ABG Oxyhemoglobin ABG Sodium ABG Potassium ABG Glucose Oxyhemoglobin Carboxyhemoglobin Sodium 136 L Potassium 6.5 H* D Chloride Carbon Dioxide 17 L BUN 41 H Creatinine 5.3 H Glucose 128 H POC Glucose Hemoglobin A1c 6.3 H Calcium Phosphorus Magnesium Lactate Dehydrogenase C-Reactive Protein 12.10 H Total Protein Albumin 3.1 L Triglycerides Arterial Blood Glucose Arterial Blood Ionized Calcium Urine Creatinine Random Vancomycin Coronavirus (PCR) 03/15/21 03/15/21 03/15/21 10:00 21:50 23:39 WBC RBC Hgb Hct MCH RDW Plt Count Lymph % (Auto) Burt # (Auto) Seg Neutrophils % Seg Neutrophils # PT INR D-Dimer ABG pH 7.098 L POC ABG pCO2 72.7 H POC ABG pO2 ABG pO2 162.5 H ABG HCO3 ABG O2 Saturation ABG Base Excess ABG Hemoglobin 10.1 L ABG Oxyhemoglobin ABG Sodium ABG Potassium 5.7 H ABG Glucose Oxyhemoglobin Carboxyhemoglobin 0.4 L Sodium Potassium Chloride Carbon Dioxide BUN Creatinine Glucose POC Glucose 156 H Hemoglobin A1c Calcium Phosphorus Magnesium Lactate Dehydrogenase C-Reactive Protein Total Protein Albumin Triglycerides Arterial Blood Glucose Arterial Blood Ionized Calcium Urine Creatinine Random Vancomycin Coronavirus (PCR) 03/16/21 03/16/21 03/16/21 05:00 05:30 05:30 WBC 16.7 H RBC 3.59 L Hgb 9.6 L Hct 30.1 L MCH 27 L RDW 17.5 H Plt Count Lymph % (Auto) Burt # (Auto) Seg Neutrophils % Seg Neutrophils # PT INR D-Dimer ABG pH POC ABG pCO2 POC ABG pO2 ABG pO2 ABG HCO3 ABG O2 Saturation ABG Base Excess ABG Hemoglobin ABG Oxyhemoglobin ABG Sodium ABG Potassium ABG Glucose Oxyhemoglobin Carboxyhemoglobin Sodium Potassium Chloride Carbon Dioxide BUN 46 H Creatinine 6.2 H Glucose 131 H POC Glucose Hemoglobin A1c Calcium Phosphorus 6.00 H D Magnesium Lactate Dehydrogenase 318 H C-Reactive Protein 18.60 H Total Protein Albumin 3.0 L Triglycerides Arterial Blood Glucose Arterial Blood Ionized Calcium Urine Creatinine Random Vancomycin Coronavirus (PCR) 03/16/21 03/16/21 03/16/21 05:51 06:37 08:58 WBC RBC Hgb Hct MCH RDW Plt Count Lymph % (Auto) Burt # (Auto) Seg Neutrophils % Seg Neutrophils # PT INR D-Dimer 3041.12 H ABG pH POC ABG pCO2 POC ABG pO2 ABG pO2 141.5 H ABG HCO3 ABG O2 Saturation ABG Base Excess ABG Hemoglobin 9.7 L ABG Oxyhemoglobin ABG Sodium ABG Potassium ABG Glucose Oxyhemoglobin Carboxyhemoglobin Sodium Potassium Chloride Carbon Dioxide BUN Creatinine Glucose POC Glucose 126 H Hemoglobin A1c Calcium Phosphorus Magnesium Lactate Dehydrogenase C-Reactive Protein Total Protein Albumin Triglycerides Arterial Blood Glucose Arterial Blood Ionized Calcium Urine Creatinine Random Vancomycin Coronavirus (PCR) 03/16/21 03/16/21 03/16/21 12:11 16:51 21:00 WBC RBC Hgb Hct MCH RDW Plt Count Lymph % (Auto) Burt # (Auto) Seg Neutrophils % Seg Neutrophils # PT INR D-Dimer ABG pH 7.239 L POC ABG pCO2 61.5 H POC ABG pO2 80.8 L ABG pO2 ABG HCO3 ABG O2 Saturation ABG Base Excess ABG Hemoglobin 11.4 L ABG Oxyhemoglobin 93.5 L ABG Sodium ABG Potassium 5.4 H ABG Glucose 137 H Oxyhemoglobin Carboxyhemoglobin 0.2 L Sodium Potassium Chloride Carbon Dioxide BUN Creatinine Glucose POC Glucose 156 H 133 H Hemoglobin A1c Calcium Phosphorus Magnesium Lactate Dehydrogenase C-Reactive Protein Total Protein Albumin Triglycerides Arterial Blood Glucose 137 H Arterial Blood Ionized Calcium Urine Creatinine Random Vancomycin Coronavirus (PCR) 03/16/21 03/17/21 03/17/21 23:42 05:23 05:23 WBC 18.4 H RBC Hgb Hct MCH 27 L RDW 17.4 H Plt Count Lymph % (Auto) Burt # (Auto) Seg Neutrophils % Seg Neutrophils # PT INR D-Dimer ABG pH POC ABG pCO2 POC ABG pO2 ABG pO2 ABG HCO3 ABG O2 Saturation ABG Base Excess ABG Hemoglobin ABG Oxyhemoglobin ABG Sodium ABG Potassium ABG Glucose Oxyhemoglobin Carboxyhemoglobin Sodium Potassium 5.2 H Chloride Carbon Dioxide 21 L BUN 79 H Creatinine 8.6 H Glucose 124 H POC Glucose 133 H Hemoglobin A1c Calcium Phosphorus Magnesium Lactate Dehydrogenase C-Reactive Protein Total Protein Albumin 3.2 L Triglycerides 285 H Arterial Blood Glucose Arterial Blood Ionized Calcium Urine Creatinine Random Vancomycin Coronavirus (PCR) 03/17/21 03/17/21 03/17/21 05:23 10:48 12:20 WBC RBC Hgb Hct MCH RDW Plt Count Lymph % (Auto) Burt # (Auto) Seg Neutrophils % Seg Neutrophils # PT INR D-Dimer ABG pH 7.294 L POC ABG pCO2 POC ABG pO2 ABG pO2 90.3 H ABG HCO3 ABG O2 Saturation ABG Base Excess ABG Hemoglobin 9.9 L ABG Oxyhemoglobin ABG Sodium ABG Potassium ABG Glucose Oxyhemoglobin Carboxyhemoglobin Sodium Potassium 5.2 H Chloride Carbon Dioxide 21 L BUN 79 H Creatinine 8.4 H Glucose 125 H POC Glucose 171 H Hemoglobin A1c Calcium Phosphorus 9.90 H D Magnesium 2.40 H Lactate Dehydrogenase C-Reactive Protein Total Protein Albumin Triglycerides Arterial Blood Glucose Arterial Blood Ionized Calcium Urine Creatinine Random Vancomycin Coronavirus (PCR) 03/17/21 03/17/21 03/18/21 17:24 21:00 04:30 WBC RBC Hgb Hct MCH RDW Plt Count Lymph % (Auto) Burt # (Auto) Seg Neutrophils % Seg Neutrophils # PT INR D-Dimer 9953.09 H ABG pH 7.310 L POC ABG pCO2 54.5 H POC ABG pO2 62.3 L ABG pO2 ABG HCO3 ABG O2 Saturation ABG Base Excess ABG Hemoglobin 10.2 L ABG Oxyhemoglobin 88.6 L ABG Sodium ABG Potassium 4.7 H ABG Glucose 99 H Oxyhemoglobin Carboxyhemoglobin 0.3 L Sodium Potassium Chloride Carbon Dioxide BUN Creatinine Glucose POC Glucose 121 H Hemoglobin A1c Calcium Phosphorus Magnesium Lactate Dehydrogenase C-Reactive Protein Total Protein Albumin Triglycerides Arterial Blood Glucose 99 H Arterial Blood Ionized Calcium 4.3 L Urine Creatinine Random Vancomycin Coronavirus (PCR) 03/18/21 03/18/21 03/18/21 04:30 04:30 11:34 WBC 12.8 H RBC 3.49 L Hgb 9.4 L Hct 29.3 L MCH 27 L RDW 17.4 H Plt Count Lymph % (Auto) Burt # (Auto) Seg Neutrophils % Seg Neutrophils # PT INR D-Dimer ABG pH POC ABG pCO2 POC ABG pO2 ABG pO2 ABG HCO3 ABG O2 Saturation ABG Base Excess ABG Hemoglobin ABG Oxyhemoglobin ABG Sodium ABG Potassium ABG Glucose Oxyhemoglobin Carboxyhemoglobin Sodium Potassium Chloride Carbon Dioxide BUN 69 H Creatinine 7.3 H Glucose POC Glucose 114 H Hemoglobin A1c Calcium 8.2 L Phosphorus 7.60 H D Magnesium Lactate Dehydrogenase 477 H C-Reactive Protein 6.90 H Total Protein Albumin Triglycerides Arterial Blood Glucose Arterial Blood Ionized Calcium Urine Creatinine Random Vancomycin Coronavirus (PCR) 03/18/21 03/19/21 03/19/21 21:44 04:13 04:13 WBC 13.7 H RBC 3.32 L Hgb 9.0 L Hct 28.1 L MCH 27 L RDW 16.9 H Plt Count Lymph % (Auto) Burt # (Auto) Seg Neutrophils % Seg Neutrophils # PT INR D-Dimer ABG pH 7.290 L POC ABG pCO2 POC ABG pO2 ABG pO2 119.7 H ABG HCO3 28.0 H ABG O2 Saturation ABG Base Excess ABG Hemoglobin 9.6 L ABG Oxyhemoglobin ABG Sodium ABG Potassium ABG Glucose Oxyhemoglobin Carboxyhemoglobin Sodium Potassium Chloride Carbon Dioxide BUN Creatinine Glucose POC Glucose Hemoglobin A1c Calcium Phosphorus Magnesium Lactate Dehydrogenase C-Reactive Protein Total Protein Albumin Triglycerides Arterial Blood Glucose Arterial Blood Ionized Calcium Urine Creatinine Random Vancomycin 43.5 H Coronavirus (PCR) 03/19/21 03/19/21 03/19/21 04:13 05:59 11:40 WBC RBC Hgb Hct MCH RDW Plt Count Lymph % (Auto) Burt # (Auto) Seg Neutrophils % Seg Neutrophils # PT INR D-Dimer ABG pH POC ABG pCO2 POC ABG pO2 ABG pO2 ABG HCO3 ABG O2 Saturation ABG Base Excess ABG Hemoglobin ABG Oxyhemoglobin ABG Sodium ABG Potassium ABG Glucose Oxyhemoglobin Carboxyhemoglobin Sodium Potassium Chloride Carbon Dioxide BUN 55 H Creatinine 7.0 H Glucose POC Glucose 116 H 145 H Hemoglobin A1c Calcium 8.1 L Phosphorus 7.90 H Magnesium Lactate Dehydrogenase C-Reactive Protein Total Protein Albumin Triglycerides Arterial Blood Glucose Arterial Blood Ionized Calcium Urine Creatinine Random Vancomycin Coronavirus (PCR) 03/19/21 03/19/21 03/20/21 17:01 23:41 04:00 WBC 15.6 H RBC 3.55 L Hgb 9.6 L Hct MCH 27 L RDW 16.8 H Plt Count 139 L Lymph % (Auto) Burt # (Auto) Seg Neutrophils % Seg Neutrophils # PT INR D-Dimer ABG pH POC ABG pCO2 POC ABG pO2 ABG pO2 ABG HCO3 ABG O2 Saturation ABG Base Excess ABG Hemoglobin ABG Oxyhemoglobin ABG Sodium ABG Potassium ABG Glucose Oxyhemoglobin Carboxyhemoglobin Sodium Potassium Chloride Carbon Dioxide BUN Creatinine Glucose POC Glucose 111 H 118 H Hemoglobin A1c Calcium Phosphorus Magnesium Lactate Dehydrogenase C-Reactive Protein Total Protein Albumin Triglycerides Arterial Blood Glucose Arterial Blood Ionized Calcium Urine Creatinine Random Vancomycin Coronavirus (PCR) 03/20/21 03/20/21 03/20/21 04:00 04:00 04:37 WBC RBC Hgb Hct MCH RDW Plt Count Lymph % (Auto) Burt # (Auto) Seg Neutrophils % Seg Neutrophils # PT INR D-Dimer > 82058 H ABG pH 7.306 L POC ABG pCO2 POC ABG pO2 ABG pO2 ABG HCO3 27.9 H ABG O2 Saturation ABG Base Excess ABG Hemoglobin 5.2 L ABG Oxyhemoglobin ABG Sodium ABG Potassium ABG Glucose Oxyhemoglobin Carboxyhemoglobin Sodium Potassium 5.2 H Chloride 97.6 L Carbon Dioxide BUN 52 H Creatinine 6.2 H Glucose 104 H POC Glucose Hemoglobin A1c Calcium Phosphorus 8.60 H Magnesium Lactate Dehydrogenase C-Reactive Protein 6.90 H Total Protein Albumin Triglycerides Arterial Blood Glucose Arterial Blood Ionized Calcium Urine Creatinine Random Vancomycin Coronavirus (PCR) 03/20/21 03/20/21 03/20/21 13:50 17:46 17:56 WBC RBC Hgb Hct MCH RDW Plt Count Lymph % (Auto) Burt # (Auto) Seg Neutrophils % Seg Neutrophils # PT INR D-Dimer ABG pH POC ABG pCO2 POC ABG pO2 ABG pO2 ABG HCO3 ABG O2 Saturation ABG Base Excess ABG Hemoglobin ABG Oxyhemoglobin ABG Sodium ABG Potassium ABG Glucose Oxyhemoglobin Carboxyhemoglobin Sodium Potassium Chloride Carbon Dioxide BUN 63 H 43 H Creatinine Glucose POC Glucose 145 H Hemoglobin A1c Calcium Phosphorus Magnesium Lactate Dehydrogenase C-Reactive Protein Total Protein Albumin Triglycerides Arterial Blood Glucose Arterial Blood Ionized Calcium Urine Creatinine Random Vancomycin Coronavirus (PCR) 03/20/21 03/21/21 03/21/21 23:18 06:58 06:58 WBC 14.4 H RBC 3.41 L Hgb 9.5 L Hct 28.6 L MCH RDW 17.4 H Plt Count 107 L Lymph % (Auto) Burt # (Auto) Seg Neutrophils % Seg Neutrophils # PT INR D-Dimer ABG pH POC ABG pCO2 POC ABG pO2 ABG pO2 ABG HCO3 ABG O2 Saturation ABG Base Excess ABG Hemoglobin ABG Oxyhemoglobin ABG Sodium ABG Potassium ABG Glucose Oxyhemoglobin Carboxyhemoglobin Sodium Potassium Chloride Carbon Dioxide BUN 60 H Creatinine 7.7 H Glucose POC Glucose 106 H Hemoglobin A1c Calcium Phosphorus Magnesium Lactate Dehydrogenase C-Reactive Protein Total Protein Albumin Triglycerides Arterial Blood Glucose Arterial Blood Ionized Calcium Urine Creatinine Random Vancomycin Coronavirus (PCR) 03/21/21 03/21/21 03/21/21 11:11 18:04 Unknown WBC RBC Hgb Hct MCH RDW Plt Count Lymph % (Auto) Burt # (Auto) Seg Neutrophils % Seg Neutrophils # PT INR D-Dimer ABG pH 7.270 L POC ABG pCO2 58.7 H POC ABG pO2 76.9 L ABG pO2 ABG HCO3 ABG O2 Saturation ABG Base Excess ABG Hemoglobin 9.9 L ABG Oxyhemoglobin 92.4 L ABG Sodium 135.8 L ABG Potassium 4.6 H ABG Glucose Oxyhemoglobin Carboxyhemoglobin 0.1 L Sodium Potassium Chloride Carbon Dioxide BUN Creatinine Glucose POC Glucose 109 H 141 H Hemoglobin A1c Calcium Phosphorus Magnesium Lactate Dehydrogenase C-Reactive Protein Total Protein Albumin Triglycerides Arterial Blood Glucose Arterial Blood Ionized Calcium 4.5 L Urine Creatinine Random Vancomycin Coronavirus (PCR) 03/22/21 03/22/21 03/22/21 03:09 07:10 10:00 WBC RBC Hgb Hct MCH RDW Plt Count Lymph % (Auto) Burt # (Auto) Seg Neutrophils % Seg Neutrophils # PT INR D-Dimer ABG pH 7.206 L 7.245 L POC ABG pCO2 55.6 H POC ABG pO2 ABG pO2 90.6 H ABG HCO3 ABG O2 Saturation ABG Base Excess -4.4 L ABG Hemoglobin 9.0 L 8.4 L ABG Oxyhemoglobin ABG Sodium 123.4 L ABG Potassium 5.6 H ABG Glucose 106 H Oxyhemoglobin 94.5 L Carboxyhemoglobin 0.1 L Sodium Potassium 5.4 H Chloride 96.8 L Carbon Dioxide BUN 89 H Creatinine 8.7 H Glucose 131 H POC Glucose Hemoglobin A1c Calcium Phosphorus Magnesium Lactate Dehydrogenase C-Reactive Protein 9.40 H Total Protein Albumin Triglycerides Arterial Blood Glucose 106 H Arterial Blood Ionized Calcium Urine Creatinine Random Vancomycin Coronavirus (PCR) 03/22/21 03/22/21 03/22/21 10:00 12:37 13:19 WBC RBC 3.05 L Hgb 8.4 L Hct 25.5 L MCH RDW 17.5 H Plt Count 108 L Lymph % (Auto) Burt # (Auto) Seg Neutrophils % Seg Neutrophils # PT INR D-Dimer ABG pH POC ABG pCO2 POC ABG pO2 ABG pO2 ABG HCO3 ABG O2 Saturation ABG Base Excess ABG Hemoglobin ABG Oxyhemoglobin ABG Sodium ABG Potassium ABG Glucose Oxyhemoglobin Carboxyhemoglobin Sodium Potassium Chloride Carbon Dioxide BUN Creatinine 8.7 H Glucose POC Glucose 140 H Hemoglobin A1c Calcium Phosphorus Magnesium Lactate Dehydrogenase C-Reactive Protein Total Protein Albumin Triglycerides Arterial Blood Glucose Arterial Blood Ionized Calcium Urine Creatinine Random Vancomycin Coronavirus (PCR) 03/22/21 03/22/21 03/22/21 13:40 17:14 18:21 WBC RBC Hgb Hct MCH RDW Plt Count Lymph % (Auto) Burt # (Auto) Seg Neutrophils % Seg Neutrophils # PT 15.8 H INR 1.14 H D-Dimer > 38489 H ABG pH POC ABG pCO2 POC ABG pO2 ABG pO2 ABG HCO3 ABG O2 Saturation ABG Base Excess ABG Hemoglobin ABG Oxyhemoglobin ABG Sodium ABG Potassium ABG Glucose Oxyhemoglobin Carboxyhemoglobin Sodium Potassium Chloride Carbon Dioxide BUN Creatinine Glucose POC Glucose 117 H 112 H Hemoglobin A1c Calcium Phosphorus Magnesium Lactate Dehydrogenase C-Reactive Protein Total Protein Albumin Triglycerides Arterial Blood Glucose Arterial Blood Ionized Calcium Urine Creatinine Random Vancomycin Coronavirus (PCR) 03/22/21 03/22/21 03/23/21 21:25 22:57 04:30 WBC RBC Hgb Hct MCH RDW Plt Count Lymph % (Auto) Burt # (Auto) Seg Neutrophils % Seg Neutrophils # PT INR D-Dimer ABG pH 7.188 L* POC ABG pCO2 POC ABG pO2 ABG pO2 97.9 H ABG HCO3 ABG O2 Saturation ABG Base Excess -3.7 L ABG Hemoglobin 9.2 L ABG Oxyhemoglobin ABG Sodium ABG Potassium ABG Glucose Oxyhemoglobin 94.4 L Carboxyhemoglobin Sodium Potassium Chloride Carbon Dioxide BUN Creatinine Glucose POC Glucose 106 H Hemoglobin A1c Calcium Phosphorus Magnesium Lactate Dehydrogenase C-Reactive Protein Total Protein Albumin Triglycerides 381 H Arterial Blood Glucose Arterial Blood Ionized Calcium Urine Creatinine Random Vancomycin Coronavirus (PCR) 03/23/21 03/23/21 03/23/21 04:30 04:30 05:37 WBC 20.1 H RBC 3.17 L Hgb 8.6 L Hct 27.2 L MCH 27 L RDW 17.4 H Plt Count 118 L Lymph % (Auto) Burt # (Auto) Seg Neutrophils % Seg Neutrophils # PT INR D-Dimer ABG pH POC ABG pCO2 POC ABG pO2 ABG pO2 ABG HCO3 ABG O2 Saturation ABG Base Excess ABG Hemoglobin ABG Oxyhemoglobin ABG Sodium ABG Potassium ABG Glucose Oxyhemoglobin Carboxyhemoglobin Sodium Potassium 5.2 H Chloride 97.1 L Carbon Dioxide 21 L BUN 82 H Creatinine 9.1 H Glucose 109 H POC Glucose 130 H Hemoglobin A1c Calcium Phosphorus 10.80 H Magnesium 3.50 H Lactate Dehydrogenase C-Reactive Protein Total Protein Albumin Triglycerides Arterial Blood Glucose Arterial Blood Ionized Calcium Urine Creatinine Random Vancomycin Coronavirus (PCR) 03/23/21 08:44 WBC RBC Hgb Hct MCH RDW Plt Count Lymph % (Auto) Burt # (Auto) Seg Neutrophils % Seg Neutrophils # PT INR D-Dimer ABG pH 7.190 L POC ABG pCO2 57.9 H POC ABG pO2 79.2 L ABG pO2 ABG HCO3 ABG O2 Saturation ABG Base Excess ABG Hemoglobin 11.8 L ABG Oxyhemoglobin 93.0 L ABG Sodium 131.0 L ABG Potassium 5.0 H ABG Glucose 122 H Oxyhemoglobin Carboxyhemoglobin 0.4 L Sodium Potassium Chloride Carbon Dioxide BUN Creatinine Glucose POC Glucose Hemoglobin A1c Calcium Phosphorus Magnesium Lactate Dehydrogenase C-Reactive Protein Total Protein Albumin Triglycerides Arterial Blood Glucose 122 H Arterial Blood Ionized Calcium 4.4 L Urine Creatinine Random Vancomycin Coronavirus (PCR) Chest x-ray: pending Allied health notes reviewed: nursing
[2021-03-23] MEDS: NORepinephrine/NS 8 MG-250 ML 8 MG/250 ML INFUS..BTL IV SCH (10:34)
--- NOTE | 2021-03-23 12:33 | Vascular Lab Report ---
DUPLEX DOPPLER LOWER EXTREMITY VEINS, BILATERAL INDICATION: swelling; hypoxemia. TECHNIQUE: Duplex doppler imaging was performed through the veins of both lower extremities using venous deniz jennyfer and other maneuvers. COMPARISON: No relevant prior imaging study available. FINDINGS: Right Common femoral vein: Negative. Right Superficial femoral vein: Negative. Right Popliteal vein: Negative. Right Calf veins: Negative. Left Common femoral vein: Negative. Left Superficial femoral vein: Negative. Left Popliteal vein: Negative. Left Calf veins: Negative. Additional findings: None.. IMPRESSION: No sonographic evidence of acute or chronic DVT within the bilateral lower extremities. Signer Name: Luis Manuel Cook MD Signed: 03/23/2021 12:29 PM Workstation Name: [id number]
--- NOTE | 2021-03-23 14:26 | Progress Note ---
Assessment and Plan Cultures: SARS CoV2 PCR: Positive 03/13/2021 blood culture: No growth Rest cultures: Staph aureus A/P: 31-year-old female with asthma, morbid obesity, Crohn's disease admitted with cough and shortness of breath: #Bilateral pneumonia: Secondary to COVID-19. Severe disease. CRP has worsened to 12.1. Procalcitonin 0.05. #Acute hypoxic respiratory failure: Requiring BiPAP. #Acute renal failure: Renally adjust antibiotics. Nephrology on board, planning dialysis #Acute asthma exacerbation #Morbid obesity Recs: -Actemra given 03/15/2021 per pharmacy notes. -prophylactic anticoagulation based on d-dimer per hospital protocol -Continue cefazolin 2g q24h. Planned 8 days -Check new resp/blood cultures -trend d-dimer, CRP every 2-3 days -poor prognosis Champ Ling MD [facility], [place] O: [phone] F: [phone] Subjective Date of service: 03/23/21 Principal diagnosis: Ac hypoxemic resp failure; AE-Asthma; SAI; Crohn's; COVID- 19; Pneumonia Interval history: Low-grade temperature to 100.3 with a white count of 20.1 which is highly increased from yesterday when it was normal. Remains on the vent. Imaging personally reviewed: Lower extremity Dopplers no evidence of DVT. Objective - Exam Narrative Exam: Physical exam deferred to reduce risk of transmission of COVID-19. Please refer to primary team's note. - Constitutional Vitals: Vital Signs Temp Pulse Resp BP Pulse Ox 100.3 F H 97 H 24 112/50 97 03/23/21 12:17 03/23/21 13:45 03/23/21 13:45 03/23/21 13:45 03/23/21 13:45 Temperature -Last 24 Hours Temperature 100.3 F Temperature 100.2 F Temperature 98.7 F Temperature 99.2 F Temperature 99.6 F Temperature 99.1 F - Labs CBC & Chem 7: 03/23/21 04:30 03/23/21 04:30 Labs: Abnormal lab results 03/22/21 03/22/21 03/22/21 Range/Units 13:40 17:14 18:21 WBC (4.5-11.0) K/mm3 RBC (3.65-5.03) M/mm3 Hgb (10.1-14.3) gm/dl Hct (30.3-42.9) % MCH (28-32) pg RDW (13.2-15.2) % Plt Count (140-440) K/mm3 D-Dimer > 73141 H (0-234) ng/mlDDU ABG pH (7.350-7.450) pH Units POC ABG pCO2 (32.0-48.0) mmHg POC ABG pO2 (83-108) mmHg ABG pO2 (80.0-90.0) mm Hg ABG Base Excess (-2.0-3.0) mmol/L ABG Hemoglobin (12.0-16.0) gm/dl ABG Oxyhemoglobin (94-98) ABG Sodium (136.0-145.0) mmol/L ABG Potassium (3.40-4.50) mmol/L ABG Glucose (65-95) mg/dL Oxyhemoglobin (95.0-99.0) % Carboxyhemoglobin (0.5-1.5) Potassium (3.6-5.0) mmol/L Chloride (98-107) mmol/L Carbon Dioxide (22-30) mmol/L BUN (7-17) mg/dL Creatinine (0.6-1.2) mg/dL Glucose (65-100) mg/dL POC Glucose 117 H 112 H (70-105) mg/dL Phosphorus (2.5-4.5) mg/dL Magnesium (1.7-2.3) mg/dL Triglycerides (2-149) mg/dL Arterial Blood Glucose (65-95) mg/dL Arterial Blood Ionized Calcium (4.6-5.3) mg/dL 03/22/21 03/22/21 03/23/21 Range/Units 21:25 22:57 04:30 WBC (4.5-11.0) K/mm3 RBC (3.65-5.03) M/mm3 Hgb (10.1-14.3) gm/dl Hct (30.3-42.9) % MCH (28-32) pg RDW (13.2-15.2) % Plt Count (140-440) K/mm3 D-Dimer (0-234) ng/mlDDU ABG pH 7.188 L* (7.350-7.450) pH Units POC ABG pCO2 (32.0-48.0) mmHg POC ABG pO2 (83-108) mmHg ABG pO2 97.9 H (80.0-90.0) mm Hg ABG Base Excess -3.7 L (-2.0-3.0) mmol/L ABG Hemoglobin 9.2 L (12.0-16.0) gm/dl ABG Oxyhemoglobin (94-98) ABG Sodium (136.0-145.0) mmol/L ABG Potassium (3.40-4.50) mmol/L ABG Glucose (65-95) mg/dL Oxyhemoglobin 94.4 L (95.0-99.0) % Carboxyhemoglobin (0.5-1.5) Potassium (3.6-5.0) mmol/L Chloride (98-107) mmol/L Carbon Dioxide (22-30) mmol/L BUN (7-17) mg/dL Creatinine (0.6-1.2) mg/dL Glucose (65-100) mg/dL POC Glucose 106 H (70-105) mg/dL Phosphorus (2.5-4.5) mg/dL Magnesium (1.7-2.3) mg/dL Triglycerides 381 H (2-149) mg/dL Arterial Blood Glucose (65-95) mg/dL Arterial Blood Ionized Calcium (4.6-5.3) mg/dL 03/23/21 03/23/21 03/23/21 Range/Units 04:30 04:30 05:37 WBC 20.1 H (4.5-11.0) K/mm3 RBC 3.17 L (3.65-5.03) M/mm3 Hgb 8.6 L (10.1-14.3) gm/dl Hct 27.2 L (30.3-42.9) % MCH 27 L (28-32) pg RDW 17.4 H (13.2-15.2) % Plt Count 118 L (140-440) K/mm3 D-Dimer (0-234) ng/mlDDU ABG pH (7.350-7.450) pH Units POC ABG pCO2 (32.0-48.0) mmHg POC ABG pO2 (83-108) mmHg ABG pO2 (80.0-90.0) mm Hg ABG Base Excess (-2.0-3.0) mmol/L ABG Hemoglobin (12.0-16.0) gm/dl ABG Oxyhemoglobin (94-98) ABG Sodium (136.0-145.0) mmol/L ABG Potassium (3.40-4.50) mmol/L ABG Glucose (65-95) mg/dL Oxyhemoglobin (95.0-99.0) % Carboxyhemoglobin (0.5-1.5) Potassium 5.2 H (3.6-5.0) mmol/L Chloride 97.1 L (98-107) mmol/L Carbon Dioxide 21 L (22-30) mmol/L BUN 82 H (7-17) mg/dL Creatinine 9.1 H (0.6-1.2) mg/dL Glucose 109 H (65-100) mg/dL POC Glucose 130 H (70-105) mg/dL Phosphorus 10.80 H (2.5-4.5) mg/dL Magnesium 3.50 H (1.7-2.3) mg/dL Triglycerides (2-149) mg/dL Arterial Blood Glucose (65-95) mg/dL Arterial Blood Ionized Calcium (4.6-5.3) mg/dL 03/23/21 03/23/21 Range/Units 08:44 11:30 WBC (4.5-11.0) K/mm3 RBC (3.65-5.03) M/mm3 Hgb (10.1-14.3) gm/dl Hct (30.3-42.9) % MCH (28-32) pg RDW (13.2-15.2) % Plt Count (140-440) K/mm3 D-Dimer (0-234) ng/mlDDU ABG pH 7.190 L (7.350-7.450) pH Units POC ABG pCO2 57.9 H (32.0-48.0) mmHg POC ABG pO2 79.2 L (83-108) mmHg ABG pO2 (80.0-90.0) mm Hg ABG Base Excess (-2.0-3.0) mmol/L ABG Hemoglobin 11.8 L (12.0-16.0) gm/dl ABG Oxyhemoglobin 92.3 L (94-98) ABG Sodium 131.0 L (136.0-145.0) mmol/L ABG Potassium 5.0 H (3.40-4.50) mmol/L ABG Glucose 122 H (65-95) mg/dL Oxyhemoglobin (95.0-99.0) % Carboxyhemoglobin 0.4 L (0.5-1.5) Potassium (3.6-5.0) mmol/L Chloride (98-107) mmol/L Carbon Dioxide (22-30) mmol/L BUN (7-17) mg/dL Creatinine (0.6-1.2) mg/dL Glucose (65-100) mg/dL POC Glucose 129 H (70-105) mg/dL Phosphorus (2.5-4.5) mg/dL Magnesium (1.7-2.3) mg/dL Triglycerides (2-149) mg/dL Arterial Blood Glucose 122 H (65-95) mg/dL Arterial Blood Ionized Calcium 4.4 L (4.6-5.3) mg/dL
--- NOTE | 2021-03-23 15:47 | Progress Note ---
Assessment and Plan #Acute kidney injury: dialysis dependent S/p HD yesterday On vasopressors today, will need MAP > 65 to tolerate HD. Labs acceptable today. ABG indicative of severe resp acidosis, vent management as per ICU. Consider transfer to a hospital with CRRT given hemodynamic instability, tentatively plan for HD tomorrow but may be unable to dialyze if MAPS are below goal +/- high vasopressor requirements # Hyperkalemia, controlled with HD #Respiratory failure Covid 19 infection currently intubated UF as tolerated with HD, will be limited by hemodynamic instability #Hyperphosphatemia to be monitored Dialysis has been initiated #Hyponatremia: Improved with HD #Overall prognosis remains guarded Subjective Date of service: 03/23/21 Principal diagnosis: Ac hypoxemic resp failure; AE-Asthma; SAI; Crohn's; COVID- 19; Pneumonia Interval history: Remains intubated. On vasopressors. Objective - Exam Narrative Exam: General: NAD HEENT: Oral mucosa moist Neck: Supple, no JVD Chest: Intubated Heart: RRR, S1 and S2, no pericardial rub Abdomen: Soft, nontender, no renal bruit Extremity: No peripheral cyanosis, edema Neurological: Eyes open but not following commands Dermatology: No skin rash Psych: Unable to assess Musculoskeletal: No joint effusion - Vital Signs Vital signs: Vital Signs - 12hr 03/23/21 03/23/21 03/23/21 03:45 04:00 04:15 Temperature 98.7 F Pulse Rate 110 H 111 H 110 H Pulse Rate [ 123 H From Monitor] Respiratory 27 H 25 H 26 H Rate Blood Pressure 91/46 101/46 105/47 O2 Sat by Pulse 92 92 92 Oximetry 03/23/21 03/23/21 03/23/21 04:30 04:40 04:45 Temperature Pulse Rate 112 H 114 H 115 H Pulse Rate [ From Monitor] Respiratory 15 24 Rate Blood Pressure 100/64 100/64 111/60 O2 Sat by Pulse 96 94 91 Oximetry 03/23/21 03/23/21 03/23/21 05:00 05:15 05:30 Temperature Pulse Rate 114 H 113 H 112 H Pulse Rate [ From Monitor] Respiratory 28 H 27 H 25 H Rate Blood Pressure 116/55 111/55 120/48 O2 Sat by Pulse 93 93 93 Oximetry 03/23/21 03/23/21 03/23/21 05:45 06:00 06:15 Temperature Pulse Rate 111 H 109 H 109 H Pulse Rate [ From Monitor] Respiratory 23 26 H 24 Rate Blood Pressure 94/49 104/52 96/48 O2 Sat by Pulse 93 94 94 Oximetry 03/23/21 03/23/21 03/23/21 06:30 06:45 07:00 Temperature Pulse Rate 109 H 110 H 111 H Pulse Rate [ From Monitor] Respiratory 23 19 18 Rate Blood Pressure 105/50 112/54 107/53 O2 Sat by Pulse 94 94 96 Oximetry 03/23/21 03/23/21 03/23/21 07:15 07:30 07:33 Temperature 100.2 F H Pulse Rate 110 H 109 H Pulse Rate [ From Monitor] Respiratory 25 H 20 Rate Blood Pressure 113/52 100/48 O2 Sat by Pulse 95 95 Oximetry 03/23/21 03/23/21 03/23/21 07:45 07:50 08:00 Temperature Pulse Rate 111 H 111 H 109 H Pulse Rate [ 109 H From Monitor] Respiratory 23 24 Rate Blood Pressure 96/48 96/48 93/49 O2 Sat by Pulse 95 96 94 Oximetry 03/23/21 03/23/21 03/23/21 08:15 08:30 08:45 Temperature Pulse Rate 107 H 105 H 108 H Pulse Rate [ From Monitor] Respiratory 22 20 26 H Rate Blood Pressure 86/36 95/39 100/41 O2 Sat by Pulse 94 94 95 Oximetry 03/23/21 03/23/21 03/23/21 09:00 09:15 09:30 Temperature Pulse Rate 106 H 105 H 104 H Pulse Rate [ From Monitor] Respiratory 24 24 24 Rate Blood Pressure 104/42 98/38 100/44 O2 Sat by Pulse 94 97 97 Oximetry 03/23/21 03/23/21 03/23/21 09:45 10:00 10:15 Temperature Pulse Rate 105 H 104 H 104 H Pulse Rate [ From Monitor] Respiratory 24 24 24 Rate Blood Pressure 103/42 99/43 101/43 O2 Sat by Pulse 95 95 Oximetry 03/23/21 03/23/21 03/23/21 10:30 10:45 11:00 Temperature Pulse Rate 101 H 106 H 104 H Pulse Rate [ From Monitor] Respiratory 24 18 25 H Rate Blood Pressure 104/41 107/46 118/60 O2 Sat by Pulse 96 95 99 Oximetry 03/23/21 03/23/21 03/23/21 11:15 11:30 11:45 Temperature Pulse Rate 105 H 103 H 101 H Pulse Rate [ From Monitor] Respiratory 17 21 25 H Rate Blood Pressure 113/54 108/52 107/49 O2 Sat by Pulse 98 97 95 Oximetry 03/23/21 03/23/21 03/23/21 12:00 12:10 12:15 Temperature Pulse Rate 104 H 106 H 107 H Pulse Rate [ 105 H From Monitor] Respiratory 24 19 Rate Blood Pressure 98/44 98/44 87/42 O2 Sat by Pulse 94 96 96 Oximetry 03/23/21 03/23/21 03/23/21 12:17 12:30 12:45 Temperature 100.3 F H Pulse Rate 101 H 98 H Pulse Rate [ From Monitor] Respiratory 25 H 24 Rate Blood Pressure 98/53 101/47 O2 Sat by Pulse 95 94 Oximetry 03/23/21 03/23/21 03/23/21 13:00 13:16 13:30 Temperature Pulse Rate 99 H 100 H 101 H Pulse Rate [ From Monitor] Respiratory 24 11 L 19 Rate Blood Pressure 101/47 116/55 O2 Sat by Pulse 95 97 100 Oximetry 03/23/21 03/23/21 03/23/21 13:45 14:00 14:15 Temperature Pulse Rate 97 H 96 H 94 H Pulse Rate [ From Monitor] Respiratory 24 24 22 Rate Blood Pressure 112/50 107/48 112/45 O2 Sat by Pulse 97 96 95 Oximetry 03/23/21 03/23/21 03/23/21 14:30 14:45 15:00 Temperature Pulse Rate 95 H 95 H 95 H Pulse Rate [ From Monitor] Respiratory 23 20 24 Rate Blood Pressure 109/45 106/46 103/44 O2 Sat by Pulse 97 96 98 Oximetry 03/23/21 15:15 Temperature Pulse Rate 94 H Pulse Rate [ From Monitor] Respiratory 24 Rate Blood Pressure 99/44 O2 Sat by Pulse 97 Oximetry - Lab 03/23/21 04:30 03/23/21 04:30 Most recent lab results ABG pH 7.190 (7.320-7.450) L 03/23/21 08:44 ABG pCO2 67.1 mm Hg 03/22/21 21:25 ABG pO2 97.9 mm Hg (80.0-90.0) H 03/22/21 21:25 ABG HCO3 25.0 mmol/L (20.0-26.0) 03/22/21 21:25 ABG O2 Saturation 93.0 (0-100) 03/23/21 08:44 Calcium 8.6 mg/dL (8.4-10.2) 03/23/21 04:30 Phosphorus 10.80 mg/dL (2.5-4.5) H 03/23/21 04:30 Magnesium 3.50 mg/dL (1.7-2.3) H 03/23/21 04:30 Urine Creatinine 40.1 mg/dL (0.1-20.0) H 03/14/21 17:50 Urine Sodium 124 mmol/L 03/14/21 17:50 Medications & Allergies - Medications Allergies/Adverse Reactions: Allergies acetaminophen [From Percocet] Adverse Reaction (Verified 03/13/21 12:45) Swelling hydrocodone bitartrate [From Vicodin] Adverse Reaction (Verified 03/13/21 12:45) Swelling oxycodone HCl [From Percocet] Adverse Reaction (Verified 03/13/21 12:45) Swelling Home Medications: Home Medications Medication Instructions Recorded Confirmed Last Taken Type Chlorhexidine Mouthwash [Peridex] 15 ml MM BID #1 bottle 10/11/20 03/13/21 Unknown Rx Clindamycin [Clindamycin CAP] 300 mg PO Q8H #21 cap 10/11/20 03/13/21 Unknown Rx Naproxen 500 mg PO Q12H PRN #12 tablet 10/11/20 03/13/21 Unknown Rx Butalb/Acetamin/Caff 50-325-40 1 - 2 tab PO Q6HR PRN #15 tab 12/05/20 03/13/21 Unknown Rx [Fioricet 50-325-40] Famotidine [Pepcid] 20 mg PO BID #30 tablet 12/05/20 03/13/21 Unknown Rx Ketorolac [Toradol] 10 mg PO Q8H PRN #20 tablet 12/05/20 03/13/21 Unknown Rx Ondansetron [Zofran Odt] 4 mg PO Q6HR PRN #20 tab.rapdis 12/05/20 03/13/21 Unknown Rx Albuterol Sulfate [Proair 90 mcg IH Q4HR PRN #2 aer.[email or web address] 01/01/21 03/13/21 Unknown Rx Respiclick] Mupirocin [Bactroban 2% OINT] 1 applic TP BID 7 Days #1 tube 01/01/21 03/13/21 Unknown Rx Triamcinolone Aceton 0.1% (Nf) 1 applic TP BID 14 Days #1 tube 01/01/21 03/13/21 Unknown Rx [Kenalog (NF)] predniSONE [Deltasone] 40 mg PO QDAY #8 tab 01/01/21 03/13/21 Unknown Rx Active Medications: Generic Name Dose Route Start Last Admin Trade Name Freq PRN Reason Stop Dose Admin Acetaminophen 650 mg 03/13/21 19:30 Acetaminophen 325 Mg Tab PO Q4H PRN Pain MILD(1-3)/Fever >100.5/SALAS Albuterol 2.5 mg 03/19/21 00:53 Albuterol 2.5 Mg/3 Ml Nebu IH Q4HRT PRN Shortness Of Breath Albuterol/Ipratropium 1 ampul 03/19/21 08:00 03/23/21 07:49 Ipratropium/Albuterol Sulfate 3 Ml Ampul.Neb IH Not Given Q6HRT INESSA Lipase/Protease/Amylase 1 each 03/15/21 11:42 Lipase 10,500/Protease 25,000/Amylase 43,750 (Units) Dr Christopher MYERSTCLAUDIA PRN PRN For Clogged Feeding Tube Apixaban 2.5 mg 03/22/21 22:00 03/23/21 09:08 Apixaban 2.5 Mg Tab PO 2.5 mg Q12HR INESSA Administration Protocol Ascorbic Acid 500 mg 03/14/21 22:00 03/23/21 09:08 Ascorbic Acid 500 Mg Tab PO 500 mg BID INESSA Administration Bisacodyl 10 mg 03/22/21 22:00 03/22/21 21:28 Bisacodyl 10 Mg Rect Supp TN Not Given QHS INESSA Dextrose 50 ml 03/14/21 11:02 03/15/21 11:40 Dextrose 50% In Water (25gm) 50 Ml Syringe IV 50 ml Q30MIN PRN Administration Hypoglycemia Protocol Famotidine 10 mg 03/17/21 22:00 03/23/21 09:07 Famotidine 10 Mg Tab PO 10 mg BID INESSA Administration Fentanyl 50 mcg 03/15/21 10:43 Fentanyl 100 Mcg/2 Ml Inj IV Q10MIN PRN ANALGESIA Hydralazine HCl 10 mg 03/15/21 10:10 03/15/21 10:32 Hydralazine 20 Mg/1 Ml Inj IV 10 mg Q4HR PRN Administration Hypertension Hydrophilic Ointment 1 applic 03/14/21 17:50 Lip Therapy Vaseline TP Q2HR PRN Dry Lips Propofol 1,000 mg in 100 mls @ 4.123 mls/hr 03/15/21 11:00 03/23/21 12:18 Diprivan 10 Mg/Ml IV 25 mcg/kg/min TITR INESSA 20.616 mls/hr Administration Protocol 5 MCG/KG/MIN Fentanyl Citrate 2,000 mcg in 100 mls @ 6.872 mls/hr 03/15/21 11:00 03/23/21 13:48 Fentanyl Drip Premix IV 3 mcg/kg/hr TITR INESSA 20.616 mls/hr Administration Protocol 1 MCG/KG/HR Sodium Chloride 500 mls @ 1 mls/hr 03/16/21 17:19 Nacl 0.9% 500 Ml IV DIRECT PRN ARTERIAL LINE FLUSH Vasopressin 20 unit/ Sodium 101 mls @ 9.09 mls/hr 03/21/21 16:00 03/23/21 08:19 Chloride IV 0.03 units/min TITR INESSA 9.09 mls/hr Administration Protocol 0.03 UNITS/MIN Sodium Chloride 100 mls @ 999 mls/hr 03/21/21 20:23 Nacl 0.9% IV KARLOS PRN Hypotension Cefazolin Sodium 2 gm/ Sodium 100 mls @ 200 mls/hr 03/22/21 19:00 03/22/21 20:09 Chloride IV 03/26/21 19:29 200 mls/hr Q24H INESSA Administration Protocol NORepinephrine/NS 8 MG-250 ML 8 mg in 250 mls @ 3.75 mls/hr 03/23/21 11:00 03/23/21 15:13 Norepinephrine/Ns 8 Mg-250 Ml (Double Conc) IV 4 mcg/min TITRATE INESSA 7.5 mls/hr Titration Protocol 2 MCG/MIN Insulin Human Lispro 0 unit 03/14/21 12:00 03/23/21 11:41 Insulin Lispro 100 Unit/Ml SUB-Q Not Given Q6HR INESSA Protocol Lorazepam 1 mg 03/13/21 19:40 03/18/21 14:11 Lorazepam 2 Mg/Ml Vial IV 1 mg Q4H PRN Administration Anxiety Metoclopramide HCl 5 mg 03/21/21 16:00 03/23/21 15:13 Metoclopramide 10 Mg/2 Ml Inj IV 5 mg Q6H INESSA Administration Multi-Ingred Cream/Lotion/Oil/Oint 1 applic 03/14/21 17:50 Mineral Oil/Petrolatum, White Ophth Oint 3.5 Gm OU Q4HR PRN Dry Eye(s) Ondansetron HCl 4 mg 03/13/21 19:30 03/21/21 12:05 Ondansetron 4 Mg/2 Ml Inj IV 4 mg Q8H PRN Administration Nausea And Vomiting Senna/Docusate Sodium 1 tab 03/14/21 22:00 03/23/21 09:12 Sennosides/Docusate Sodium 8.6/50 Mg Tab FEEDTUBE Not Given BID INESSA Simple Syrup 15 ml 03/15/21 11:42 Simple Syrup 15 Ml FEEDTUBE PRN PRN Hypoglycemia Simple Syrup 30 ml 03/15/21 11:42 Simple Syrup 15 Ml FEEDTUBE PRN PRN Hypoglycemia Sodium Bicarbonate 325 mg 03/15/21 11:42 03/21/21 17:21 Sodium Bicarbonate 325 Mg Tab FEEDTUBE 325 mg PRN PRN Administration For Clogged Feeding Tube Sodium Chloride 10 ml 03/13/21 22:00 03/23/21 09:10 Sodium Chloride 0.9% 10 Ml Flush Syringe IV 10 ml BID INESSA Administration Sodium Chloride 10 ml 03/13/21 19:30 Sodium Chloride 0.9% 10 Ml Flush Syringe IV PRN PRN LINE FLUSH Zinc Sulfate 220 mg 03/14/21 22:00 03/23/21 09:08 Zinc Sulfate 220 Mg Cap PO 220 mg BID INESSA Administration
[2021-03-23] MEDS ORDERED: SIMPLE SYRUP 15 ML FEEDTUBE PRN ×2 (17:03)
[2021-03-23] MEDS ORDERED: SODIUM BICARBONATE 325 MG TAB FEEDTUBE PRN (17:03)
[2021-03-23] MEDS ORDERED: LIPASE 10,500/PROTEASE 25,000/AMYLASE 43,750 (UNITS) DR CAP FEEDTUBE PRN (17:03)
--- NOTE | 2021-03-23 17:21 | Progress Note ---
<ANCELMO GONZALEZ - Last Filed: 03/23/21 17:09> Assessment and Plan Assessment and plan: This is a 31-year-old female with history of asthma, morbid obesity, and Crohn's disease who came in complaining of severe wheezing and shortness of breath for the last 4 days that was not relieved by her home nebs and rescue inhalers. Patient was initially admitted to IMCU on bipap but was subsequently intubated due to severe respiratory distress and was unable to protect her aiway. Patient was found to have acute respiratory failure 2/2 to COVID PNA requiring vent support and SAI. Hospital Course to Date: 03/14/21- Patient is s/p intubation from this morning, sedated on propofol and fentanyl RASS -3 to -4. ETT above the clavicles advanced by 2cc. Continue nebs and IV steroids per [facility]. COVID swab pending. Hyperkalemia improved, X1 dose of kayaxalate ordered. Low BP and low urine output this am, fluid bolus challenge, 500cc of NS bolus given. Continue to monitor electrolytes and renal function, repeat BMP this afternoon. 03/15: Patient's renal function noted to be significantly worse today, patient was hyperkalemic and this was medically treated. Patient initiated on hemodialysis today. Patient disease was consulted today. 03/16: No acute events reported overnight, patient received hemodialysis yesterday. Patient is currently on propofol and fentanyl. 03/17: Patient received hemodialysis today, patient is slightly acidotic on ABG however [facility] is allowing for permissive hypercapnia, tracheal aspirate with Staph aureus and ID is aware. 03/18: Patient is having high residuals today and Reglan was started, patient will receive HD daily per nephrology, correct her change in FiO2 as tolerated. 03/19: HD per nephrology today, antibiotics changed to cefazolin. Patient did not tolerate tube feedings as she had high residuals this morning and they were turned off. Not restarted yet. Updated family at bedside today 03/20: HD today, ddimer noted to be >1000, Tolerating trickle TF. Stat BLE dopplar US 03/21: Patient is not tolerating TF, CXR shows worsening infiltrates, [facility] made c hanges to vent, TF on hold and started on IVF. 03/22/21- Patient remains intubated and on sedation. Persistent vomiting, TF held overnight, no documented BM, on reglan BR added, Shaun citarte & supp. HD today. Plan to restart TF at 10ml/hr, will reevaluate in the am. Persistent thrombocytopenia, Hep on hold, HIT panel ordered, PO eliquis initiated. 03/23/21- Patient remains on the vent and sedated on propofol and fentanyl RASS - 2 to -3. Possible SAT today as tolerated. Patient tolerated trickle feeds overnight, plan to advance TF by 10cc Q8 to 12hrs. Continue current BR and continue reglan for now. Slightr worsening in acidosis from this am, d/w [facility] vent setting adjusted, will repeat ABG at 9pm. Assessment and Plan #Neuro: Sedated - Intubated and sedated on propofol and fentanyl RASS -2 - Titrate sedation for RASS goal 0 to -2 - Daily SAT and SBT per [facility] - Avoid benzodiazepine's, reduce the possibility of delirium - Prn analgesia for CPOT greater than 3 - Maintenance of sleep-wake cycle -Bilateral wrist restraints in place for safety #CV:Tachycardia #HTN - ST on the monitor - Back on low dose pressors - Continue blood pressure monitor per protocol - Maintain MAP above 65 - AC switched to Eliquis - C/f for HIT, HIT panel pending #Acute Respiratory Failure #RUL PNA #Asthma Exacerbation #Bronchospasm- resolved - 03/13 CXR- possible minimal patchy RUL pneumonia - 03/14 CXR- increasing patchy parenchymal opacities bilaterally - C/f for aspiration while patient was on Bipap - Intubated on 03/14 for airway protection - High Peak pressure post intubation--> bronchospasm - COVID swab positive - Vent setting: PRVC- 80%,14,24,500 - AM ABG noted- slight worsening acidosis - Vent adjusted by [facility] - Repeat ABG at 9pm - [facility] consulted, appreciate recommendations - Continue IV Steroids and Nebs per [facility] - VAP bundle addressed - Aspiration precaution HOB above 30 - Daily SBT and SAT trials as tolerated - Daily ABG and CXR - Continue SPO2 monitoring for SPO2 goal above 92% #GI: Projectile Vomitting- resolved - Patient on enteral nutrition - advance TF by 10cc Q8 to 12hrs. - BM this am 03/23 - 03/22 BR adjusted, X1 dose of mag citrate and Supp - Continue BR: colace and senokot - Continue Pepcid and reglan - PRN entiemetic for N/V #:Acute Kidney Injury most likely ATN #Hyperkalemia - Initial cr. was 0.8-- up to 8.7 this am - K 5.4 - HD was initiated on 03/15 - Patient is oliguric - Last HD on 03/22 - Continue HD per Nephro - Strict intake and output - Avoid nephrotoxic medications; Renally dose medications - Monitor and replace electrolytes as needed - Nephro on consult #ID:COVID Pneumonia #Possible aspiration Pneumonia #Leukocytosis - WBCs back up 20.1 - TMAx 100.8 - COVID swab positive - 03/13 BC x2 no growth to date - 03/14 tracheal aspirate with Staph aureus (ID aware) - Patient received X1 dose of redemsevir, was D/C due to worsen renal function - Received actemra - Continue IV Abx- Rocephin per ID - Trend COVID-19 inflammatory markers - Isolation/droplet precautions - On Vitamin C/vitamin D/zinc - Daily CBC monitor - ID on consult #Endo: Hyperglycemia - Hemoglobin A1c 6.3 - Continue SSI Q6hrs - While critically ill target blood glucose of 140-180 - Avoid hypoglycemia The high probability of a clinically significant, sudden or life threatening deterioration of the [multiple] system(s) required my full and direct attention, intervention and personal management. The aggregate critical care time was [60] minutes. This time is in addition to time spent performing reported procedures but includes the following: [x] Data Review and interpretation [x] Patient assessment and monitoring of vital signs [x] Documentation [x] Medication orders and management Disposition Plan: ICU Total Time Spent with Patient (Minutes): 60 History Interval history: Patient is seen and examined at the bedside. Patient remains on the vent and sedated. Persistent projectile vomiting overnight, TF held Hospitalist Physical - Constitutional Vitals: Temp Pulse Resp BP Pulse Ox 98.1 F 99 H 24 104/40 98 03/23/21 16:28 03/23/21 16:44 03/23/21 16:15 03/23/21 16:44 03/23/21 16:44 General appearance: Present: no acute distress, well-nourished, obese, other (Intubated and sedated) - EENT Eyes: Present: PERRL ENT: clear oral mucosa - Respiratory Respiratory effort: normal Respiratory: bilateral: rhonchi - Cardiovascular Rhythm: regular Heart Sounds: Present: S1 & S2 - Extremities Extremities: no ischemia, pulses intact, pulses symmetrical Extremity abnormal: edema - Peripheral Assessment Generalized Edema Type: Non-pitting Edema Degree: 1+ Capillary Refill: < 3 seconds Skin Temperature: Warm - Abdominal General gastrointestinal: soft, non-tender, normal bowel sounds - Integumentary Integumentary: Present: clear, warm, dry - Psychiatric Psychiatric: other (Intubated/Sedated) - Neurologic Neurologic: other (Intubated/Sedated) - Allied Health Allied health notes reviewed: nursing Results - Labs CBC & Chem 7: 03/23/21 04:30 03/23/21 04:30 Labs: Laboratory Last Values WBC 20.1 K/mm3 (4.5-11.0) H 03/23/21 04:30 RBC 3.17 M/mm3 (3.65-5.03) L 03/23/21 04:30 Hgb 8.6 gm/dl (10.1-14.3) L 03/23/21 04:30 Hct 27.2 % (30.3-42.9) L 03/23/21 04:30 MCV 86 fl (79-97) 03/23/21 04:30 MCH 27 pg (28-32) L 03/23/21 04:30 MCHC 32 % (30-34) 03/23/21 04:30 RDW 17.4 % (13.2-15.2) H 03/23/21 04:30 Plt Count 118 K/mm3 (140-440) L 03/23/21 04:30 Lymph % (Auto) 7.8 % (13.4-35.0) L 03/14/21 06:21 Frederick % (Auto) 6.7 % (0.0-7.3) 03/14/21 06:21 Eos % (Auto) 0.0 % (0.0-4.3) 03/14/21 06:21 Baso % (Auto) 0.1 % (0.0-1.8) 03/14/21 06:21 Lymph # (Auto) 1.6 K/mm3 (1.2-5.4) 03/14/21 06:21 Frederick # (Auto) 1.3 K/mm3 (0.0-0.8) H 03/14/21 06:21 Eos # (Auto) 0.0 K/mm3 (0.0-0.4) 03/14/21 06:21 Baso # (Auto) 0.0 K/mm3 (0.0-0.1) 03/14/21 06:21 Seg Neutrophils % 85.4 % (40.0-70.0) H 03/14/21 06:21 Seg Neutrophils # 17.1 K/mm3 (1.8-7.7) H 03/14/21 06:21 PT 15.8 Sec. (12.2-14.9) H 03/22/21 13:40 INR 1.14 (0.87-1.13) H 03/22/21 13:40 APTT 26.8 Sec. (24.2-36.6) 03/22/21 13:40 D-Dimer > 84675 ng/mlDDU (0-234) H 03/22/21 13:40 ABG pH 7.190 (7.320-7.450) L 03/23/21 08:44 POC ABG pCO2 57.9 mmHg (32.0-48.0) H 03/23/21 08:44 ABG pCO2 67.1 mm Hg 03/22/21 21:25 POC ABG pO2 79.2 mmHg (83-108) L 03/23/21 08:44 ABG pO2 97.9 mm Hg (80.0-90.0) H 03/22/21 21:25 POC ABG HCO3 21.6 03/23/21 08:44 ABG HCO3 25.0 mmol/L (20.0-26.0) 03/22/21 21:25 ABG O2 Saturation 93.0 (0-100) 03/23/21 08:44 ABG O2 Content 12.4 (0.0-44) 03/22/21 21:25 POC ABG Base Excess -7 03/23/21 08:44 ABG Base Excess -3.7 mmol/L (-2.0-3.0) L 03/22/21 21:25 ABG Hemoglobin 11.8 (12.0-17.5) L 03/23/21 08:44 ABG Oxyhemoglobin 92.3 (94-98) L 03/23/21 08:44 ABG Carboxyhemoglobin 1.4 % (0.0-5.0) 03/22/21 21:25 ABG Methemoglobin 0.3 (0.0-1.5) 03/23/21 08:44 ABG Sodium 131.0 mmol/L (136.0-145.0) L 03/23/21 08:44 ABG Potassium 5.0 mmol/L (3.40-4.50) H 03/23/21 08:44 ABG Chloride 100.0 mmol/L (98-107) 03/23/21 08:44 ABG Glucose 122 mg/dL (65-95) H 03/23/21 08:44 Oxyhemoglobin 94.4 % (95.0-99.0) L 03/22/21 21:25 Carboxyhemoglobin 0.4 (0.5-1.5) L 03/23/21 08:44 FiO2 85 % 03/22/21 21:25 FiO2 % 0.8 03/23/21 08:44 Sodium 138 mmol/L (137-145) 03/23/21 04:30 Potassium 5.2 mmol/L (3.6-5.0) H 03/23/21 04:30 Chloride 97.1 mmol/L (98-107) L 03/23/21 04:30 Carbon Dioxide 21 mmol/L (22-30) L 03/23/21 04:30 Anion Gap 25 mmol/L 03/23/21 04:30 BUN 82 mg/dL (7-17) H 03/23/21 04:30 Creatinine 9.1 mg/dL (0.6-1.2) H 03/23/21 04:30 Estimated GFR 6 ml/min 03/23/21 04:30 BUN/Creatinine Ratio 9 % 03/23/21 04:30 Glucose 109 mg/dL (65-100) H 03/23/21 04:30 POC Glucose 148 mg/dL (70-105) H 03/23/21 16:09 Hemoglobin A1c 6.3 % (4-6) H 03/15/21 05:09 Lactic Acid 2.00 mmol/L (0.7-2.0) 03/14/21 18:47 Calcium 8.6 mg/dL (8.4-10.2) 03/23/21 04:30 Phosphorus 10.80 mg/dL (2.5-4.5) H 03/23/21 04:30 Magnesium 3.50 mg/dL (1.7-2.3) H 03/23/21 04:30 Ferritin 151.6 ng/mL (10.0-200.0) 03/18/21 04:30 Total Bilirubin 0.20 mg/dL (0.1-1.2) 03/17/21 05:23 AST 35 units/L (5-40) 03/17/21 05:23 ALT 24 units/L (7-56) 03/17/21 05:23 Alkaline Phosphatase 78 units/L (35-129) 03/17/21 05:23 Lactate Dehydrogenase 477 units/L (91-180) H 03/18/21 04:30 C-Reactive Protein 9.40 mg/dL (0.00-1.30) H 03/22/21 10:00 Total Protein 6.7 g/dL (6.3-8.2) 03/17/21 05:23 Albumin 3.2 g/dL (3.9-5) L 03/17/21 05:23 Albumin/Globulin Ratio 0.9 % 03/17/21 05:23 Triglycerides 381 mg/dL (2-149) H 03/23/21 04:30 Procalcitonin < 0.05 ng/mL (<0.15) 03/13/21 15:40 HCG, Qual Negative (Negative) 03/13/21 13:26 Arterial Blood Glucose 122 mg/dL (65-95) H 03/23/21 08:44 Arterial Blood Ionized Calcium 4.4 mg/dL (4.6-5.3) L 03/23/21 08:44 Urine Creatinine 40.1 mg/dL (0.1-20.0) H 03/14/21 17:50 Urine Sodium 124 mmol/L 03/14/21 17:50 Random Vancomycin 11.2 ug/mL (0-40.0) 03/20/21 04:23 Coronavirus (PCR) Positive (Negative) A 03/14/21 Unknown Hepatitis A IgM Ab Non-reactive (NonReactive) 03/15/21 05:09 Hep Bs Antigen Nonreactive (Negative) 03/15/21 05:09 Hep B Core IgM Ab Non-reactive (NonReactive) 03/15/21 05:09 Hepatitis C Antibody Non-reactive (NonReactive) 03/15/21 05:09 Bazan/IV: Voiding Method Indwelling Catheter Active Medications - Current Medications Current Medications: Generic Name Dose Route Start Last Admin Trade Name Freq PRN Reason Stop Dose Admin Acetaminophen 650 mg 03/13/21 19:30 Acetaminophen 325 Mg Tab PO Q4H PRN Pain MILD(1-3)/Fever >100.5/SALAS Albuterol 2.5 mg 03/19/21 00:53 Albuterol 2.5 Mg/3 Ml Nebu IH Q4HRT PRN Shortness Of Breath Albuterol/Ipratropium 1 ampul 03/19/21 08:00 03/23/21 16:44 Ipratropium/Albuterol Sulfate 3 Ml Ampul.Neb IH Not Given Q6HRT INESSA Lipase/Protease/Amylase 1 each 03/15/21 11:42 Lipase 10,500/Protease 25,000/Amylase 43,750 (Units) Dr Christopher PEREZ PRN PRN For Clogged Feeding Tube Lipase/Protease/Amylase 1 each 03/23/21 17:03 Lipase 10,500/Protease 25,000/Amylase 43,750 (Units) Dr Christopher PEREZ PRN PRN For Clogged Feeding Tube Apixaban 2.5 mg 03/22/21 22:00 03/23/21 09:08 Apixaban 2.5 Mg Tab PO 2.5 mg Q12HR INESSA Administration Protocol Ascorbic Acid 500 mg 03/14/21 22:00 03/23/21 09:08 Ascorbic Acid 500 Mg Tab PO 500 mg BID INESSA Administration Bisacodyl 10 mg 03/22/21 22:00 03/22/21 21:28 Bisacodyl 10 Mg Rect Supp ME Not Given QHS INESSA Dextrose 50 ml 03/14/21 11:02 03/15/21 11:40 Dextrose 50% In Water (25gm) 50 Ml Syringe IV 50 ml Q30MIN PRN Administration Hypoglycemia Protocol Famotidine 10 mg 03/17/21 22:00 03/23/21 09:07 Famotidine 10 Mg Tab PO 10 mg BID INESSA Administration Fentanyl 50 mcg 03/15/21 10:43 Fentanyl 100 Mcg/2 Ml Inj IV Q10MIN PRN ANALGESIA Hydralazine HCl 10 mg 03/15/21 10:10 03/15/21 10:32 Hydralazine 20 Mg/1 Ml Inj IV 10 mg Q4HR PRN Administration Hypertension Hydrophilic Ointment 1 applic 03/14/21 17:50 Lip Therapy Vaseline TP Q2HR PRN Dry Lips Propofol 1,000 mg in 100 mls @ 4.123 mls/hr 03/15/21 11:00 03/23/21 12:18 Diprivan 10 Mg/Ml IV 25 mcg/kg/min TITR INESSA 20.616 mls/hr Administration Protocol 5 MCG/KG/MIN Fentanyl Citrate 2,000 mcg in 100 mls @ 6.872 mls/hr 03/15/21 11:00 03/23/21 13:48 Fentanyl Drip Premix IV 3 mcg/kg/hr TITR INESSA 20.616 mls/hr Administration Protocol 1 MCG/KG/HR Sodium Chloride 500 mls @ 1 mls/hr 03/16/21 17:19 Nacl 0.9% 500 Ml IV DIRECT PRN ARTERIAL LINE FLUSH Vasopressin 20 unit/ Sodium 101 mls @ 9.09 mls/hr 03/21/21 16:00 03/23/21 08:19 Chloride IV 0.03 units/min TITR INESSA 9.09 mls/hr Administration Protocol 0.03 UNITS/MIN Sodium Chloride 100 mls @ 999 mls/hr 03/21/21 20:23 Nacl 0.9% IV KARLOS PRN Hypotension Cefazolin Sodium 2 gm/ Sodium 100 mls @ 200 mls/hr 03/22/21 19:00 03/22/21 20:09 Chloride IV 03/26/21 19:29 200 mls/hr Q24H INESSA Administration Protocol NORepinephrine/NS 8 MG-250 ML 8 mg in 250 mls @ 3.75 mls/hr 03/23/21 11:00 03/23/21 16:41 Norepinephrine/Ns 8 Mg-250 Ml (Double Conc) IV 8 mcg/min TITRATE INESSA 15 mls/hr Titration Protocol 2 MCG/MIN Insulin Human Lispro 0 unit 03/14/21 12:00 03/23/21 11:41 Insulin Lispro 100 Unit/Ml SUB-Q Not Given Q6HR INESSA Protocol Lorazepam 1 mg 03/13/21 19:40 03/18/21 14:11 Lorazepam 2 Mg/Ml Vial IV 1 mg Q4H PRN Administration Anxiety Metoclopramide HCl 5 mg 03/21/21 16:00 03/23/21 15:13 Metoclopramide 10 Mg/2 Ml Inj IV 5 mg Q6H INESSA Administration Multi-Ingred Cream/Lotion/Oil/Oint 1 applic 03/14/21 17:50 Mineral Oil/Petrolatum, White Ophth Oint 3.5 Gm OU Q4HR PRN Dry Eye(s) Ondansetron HCl 4 mg 03/13/21 19:30 03/21/21 12:05 Ondansetron 4 Mg/2 Ml Inj IV 4 mg Q8H PRN Administration Nausea And Vomiting Senna/Docusate Sodium 1 tab 03/14/21 22:00 03/23/21 09:12 Sennosides/Docusate Sodium 8.6/50 Mg Tab FEEDTUBE Not Given BID INESSA Simple Syrup 15 ml 03/15/21 11:42 Simple Syrup 15 Ml FEEDTUBE PRN PRN Hypoglycemia Simple Syrup 30 ml 03/15/21 11:42 Simple Syrup 15 Ml FEEDTUBE PRN PRN Hypoglycemia Simple Syrup 15 ml 03/23/21 17:03 Simple Syrup 15 Ml FEEDTUBE PRN PRN Hypoglycemia Simple Syrup 30 ml 03/23/21 17:03 Simple Syrup 15 Ml FEEDTUBE PRN PRN Hypoglycemia Sodium Bicarbonate 325 mg 03/15/21 11:42 03/21/21 17:21 Sodium Bicarbonate 325 Mg Tab FEEDTUBE 325 mg PRN PRN Administration For Clogged Feeding Tube Sodium Bicarbonate 325 mg 03/23/21 17:03 Sodium Bicarbonate 325 Mg Tab FEEDTUBE PRN PRN For Clogged Feeding Tube Sodium Chloride 10 ml 03/13/21 22:00 03/23/21 09:10 Sodium Chloride 0.9% 10 Ml Flush Syringe IV 10 ml BID INESSA Administration Sodium Chloride 10 ml 03/13/21 19:30 Sodium Chloride 0.9% 10 Ml Flush Syringe IV PRN PRN LINE FLUSH Zinc Sulfate 220 mg 03/14/21 22:00 03/23/21 09:08 Zinc Sulfate 220 Mg Cap PO 220 mg BID INESSA Administration Nutrition/Malnutrition Assess - Dietary Evaluation Nutrition/Malnutrition Findings: Nutrition Notes Start: 03/15/21 11:06 Freq: Status: Active Protocol: Document 03/19/21 16:31 GB (Rec: 03/19/21 16:37 GB [id number]) Nutrition Notes Initial or Follow up Reassessment Current Diagnosis Respiratory Failure Other Pertinent Diagnosis SOB. PMHx: asthma, morbid obesity, crohn's disease Current Diet No diet order: should be NPO - Tube Feeding Labs/Tests 03/19: BUN 55, creatinine 8.1, Ca 8.1, P 7.9 A1c 6.3 Pertinent Medications Vit C, D5(PRN), Fentanyl Citrate, Propofol 16.493ml/hr (435kcal), Zn Sulfate Height 5 ft 5 in Weight 137.438 kg [place] Body Weight (kg) 56.81 BMI 50.4 Weight change and time frame No new weights recorded at time of assessment Weight Status Morbidly Obese Subjective/Other Information Pt is intubated/sedated - continues BM: 03/18 MD note 03/19: okay to restart TF at 10ml advance 10ml/8hr as tolerated to goal. RN note: vomited 03/18 TF held for aspiration check. TF currently at 20ml/hr advancing as tolerated. Percent of energy/protein needs met: TF at goal will meet 75% or greater of minimal EEN Burn Absent Trauma Absent GI Symptoms Vomiting Difficulty In Swallowing Food Allergy No Skin Integrity/Comment No complications reported Current % PO Other Minimum of two criteria No #1 Nutrition Diagnosis Swallowing difficulty Comments: 03/17: intubation/sedation/TF continues 03/19: intubation/sedation/TF continues Etiology SOB, respiratory failure As Evidenced by Signs and Symptoms intubated/sedated (03/14) Diagnosis Progress(for reassessment Continues documentation) Is patient on ventilator? Yes Is Patient Ambulatory and/or Out of Bed No REE-([facility]-confined to bed) 2515.536 Kcal/Kg value to use for calculation 15 Approximate Energy Requirements Using 2 kcal/Kg Calculation Used for Recommendations Kcal/kg Additional Notes Protein 0.6g/kg or greater @ 137g or greater Fluids: 1ml/kcal or per Nutrition Intervention Change Diet Order: NPO Nutrition Support: 03/19: Nepro @ 44ml/hr (held r/ t vomiting: restarted at 10ml/ hr advancing to goal) Flush: 155ml/4hr Total free H2O/day: TF@goal + flush = 1700ml Kcal 1,900 Protein (gm) 86 Carbohydrates (gm) 170 Fat (gm) 101 Fluid (mL) 767 Fiber (gm) 13 Goal #1 TF started and tolerated by f/ u 03/17 met, changing to nepro 03/19: nepro, post vomiting event, TF restarted @10ml advancing as tolerated. Goal #2 TF at goal by f/u 03/19: restarted at 10ml/hr advancing to goal. Currently at 20ml/hr. Follow-Up By: 03/23/21 Additional Comments f/u: TF tolerance, vent status <WESLEY LANCASTER - Last Filed: 03/24/21 06:57> Assessment and Plan Assessment and plan: I saw and evaluated the patient. I agree with the findings and the plan of care as documented in the Nurse Practitioner's~note, with the following corrections and additions. Hospitalist Physical - Constitutional Vitals: Temp Pulse Resp BP Pulse Ox 96.7 F L 81 24 116/46 100 03/24/21 03:55 03/24/21 06:30 03/24/21 06:30 03/24/21 06:30 03/24/21 06:30 Results - Labs CBC & Chem 7: 03/24/21 04:00 03/24/21 04:00 Labs: Laboratory Last Values WBC 17.8 K/mm3 (4.5-11.0) H 03/24/21 04:00 RBC 2.96 M/mm3 (3.65-5.03) L 03/24/21 04:00 Hgb 8.1 gm/dl (10.1-14.3) L 03/24/21 04:00 Hct 25.0 % (30.3-42.9) L 03/24/21 04:00 MCV 84 fl (79-97) 03/24/21 04:00 MCH 27 pg (28-32) L 03/24/21 04:00 MCHC 32 % (30-34) 03/24/21 04:00 RDW 17.7 % (13.2-15.2) H 03/24/21 04:00 Plt Count 124 K/mm3 (140-440) L 03/24/21 04:00 Lymph % (Auto) 7.8 % (13.4-35.0) L 03/14/21 06:21 Frederick % (Auto) 6.7 % (0.0-7.3) 03/14/21 06:21 Eos % (Auto) 0.0 % (0.0-4.3) 03/14/21 06:21 Baso % (Auto) 0.1 % (0.0-1.8) 03/14/21 06:21 Lymph # (Auto) 1.6 K/mm3 (1.2-5.4) 03/14/21 06:21 Frederick # (Auto) 1.3 K/mm3 (0.0-0.8) H 03/14/21 06:21 Eos # (Auto) 0.0 K/mm3 (0.0-0.4) 03/14/21 06:21 Baso # (Auto) 0.0 K/mm3 (0.0-0.1) 03/14/21 06:21 Seg Neutrophils % 85.4 % (40.0-70.0) H 03/14/21 06:21 Seg Neutrophils # 17.1 K/mm3 (1.8-7.7) H 03/14/21 06:21 PT 15.8 Sec. (12.2-14.9) H 03/22/21 13:40 INR 1.14 (0.87-1.13) H 03/22/21 13:40 APTT 26.8 Sec. (24.2-36.6) 03/22/21 13:40 D-Dimer > 88677 ng/mlDDU (0-234) H 03/22/21 13:40 ABG pH 7.190 (7.320-7.450) L 03/23/21 08:44 POC ABG pCO2 57.9 mmHg (32.0-48.0) H 03/23/21 08:44 ABG pCO2 67.1 mm Hg 03/22/21 21:25 POC ABG pO2 79.2 mmHg (83-108) L 03/23/21 08:44 ABG pO2 97.9 mm Hg (80.0-90.0) H 03/22/21 21:25 POC ABG HCO3 21.6 03/23/21 08:44 ABG HCO3 25.0 mmol/L (20.0-26.0) 03/22/21 21:25 ABG O2 Saturation 93.0 (0-100) 03/23/21 08:44 ABG O2 Content 12.4 (0.0-44) 03/22/21 21:25 POC ABG Base Excess -7 03/23/21 08:44 ABG Base Excess -3.7 mmol/L (-2.0-3.0) L 03/22/21 21:25 ABG Hemoglobin 11.8 (12.0-17.5) L 03/23/21 08:44 ABG Oxyhemoglobin 92.3 (94-98) L 03/23/21 08:44 ABG Carboxyhemoglobin 1.4 % (0.0-5.0) 03/22/21 21:25 ABG Methemoglobin 0.3 (0.0-1.5) 03/23/21 08:44 ABG Sodium 131.0 mmol/L (136.0-145.0) L 03/23/21 08:44 ABG Potassium 5.0 mmol/L (3.40-4.50) H 03/23/21 08:44 ABG Chloride 100.0 mmol/L (98-107) 03/23/21 08:44 ABG Glucose 122 mg/dL (65-95) H 03/23/21 08:44 Oxyhemoglobin 94.4 % (95.0-99.0) L 03/22/21 21:25 Carboxyhemoglobin 0.4 (0.5-1.5) L 03/23/21 08:44 FiO2 85 % 03/22/21 21:25 FiO2 % 0.8 03/23/21 08:44 Sodium 138 mmol/L (137-145) 03/24/21 04:00 Potassium 4.6 mmol/L (3.6-5.0) 03/24/21 04:00 Chloride 95.6 mmol/L (98-107) L 03/24/21 04:00 Carbon Dioxide 20 mmol/L (22-30) L 03/24/21 04:00 Anion Gap 27 mmol/L 03/24/21 04:00 BUN 108 mg/dL (7-17) H 03/24/21 04:00 Creatinine 10.8 mg/dL (0.6-1.2) H 03/24/21 04:00 Estimated GFR 5 ml/min 03/24/21 04:00 BUN/Creatinine Ratio 10 % 03/24/21 04:00 Glucose 155 mg/dL (65-100) H 03/24/21 04:00 POC Glucose 136 mg/dL (70-105) H 03/24/21 06:49 Hemoglobin A1c 6.3 % (4-6) H 03/15/21 05:09 Lactic Acid 2.00 mmol/L (0.7-2.0) 03/14/21 18:47 Calcium 8.6 mg/dL (8.4-10.2) 03/24/21 04:00 Phosphorus 10.80 mg/dL (2.5-4.5) H 03/23/21 04:30 Magnesium 3.50 mg/dL (1.7-2.3) H 03/23/21 04:30 Ferritin 151.6 ng/mL (10.0-200.0) 03/18/21 04:30 Total Bilirubin 0.20 mg/dL (0.1-1.2) 03/17/21 05:23 AST 35 units/L (5-40) 03/17/21 05:23 ALT 24 units/L (7-56) 03/17/21 05:23 Alkaline Phosphatase 78 units/L (35-129) 03/17/21 05:23 Lactate Dehydrogenase 477 units/L (91-180) H 03/18/21 04:30 C-Reactive Protein 9.40 mg/dL (0.00-1.30) H 03/22/21 10:00 Total Protein 6.7 g/dL (6.3-8.2) 03/17/21 05:23 Albumin 3.2 g/dL (3.9-5) L 03/17/21 05:23 Albumin/Globulin Ratio 0.9 % 03/17/21 05:23 Triglycerides 381 mg/dL (2-149) H 03/23/21 04:30 Procalcitonin < 0.05 ng/mL (<0.15) 03/13/21 15:40 HCG, Qual Negative (Negative) 03/13/21 13:26 Arterial Blood Glucose 122 mg/dL (65-95) H 03/23/21 08:44 Arterial Blood Ionized Calcium 4.4 mg/dL (4.6-5.3) L 03/23/21 08:44 Urine Creatinine 40.1 mg/dL (0.1-20.0) H 03/14/21 17:50 Urine Sodium 124 mmol/L 03/14/21 17:50 Random Vancomycin 11.2 ug/mL (0-40.0) 03/20/21 04:23 Coronavirus (PCR) Positive (Negative) A 03/14/21 Unknown Hepatitis A IgM Ab Non-reactive (NonReactive) 03/15/21 05:09 Hep Bs Antigen Nonreactive (Negative) 03/15/21 05:09 Hep B Core IgM Ab Non-reactive (NonReactive) 03/15/21 05:09 Hepatitis C Antibody Non-reactive (NonReactive) 03/15/21 05:09 Microbiology: Microbiology 03/23/21 15:34 Peripheral/Venous Blood Culture - Preliminary Culture in Progress 03/23/21 15:44 Peripheral/Venous Blood Culture - Preliminary Culture in Progress Bazan/IV: Voiding Method Indwelling Catheter Active Medications - Current Medications Current Medications: Generic Name Dose Route Start Last Admin Trade Name Freq PRN Reason Stop Dose Admin Acetaminophen 650 mg 03/13/21 19:30 Acetaminophen 325 Mg Tab PO Q4H PRN Pain MILD(1-3)/Fever >100.5/SALAS Albuterol 2.5 mg 03/19/21 00:53 Albuterol 2.5 Mg/3 Ml Nebu IH Q4HRT PRN Shortness Of Breath Albuterol/Ipratropium 1 ampul 03/19/21 08:00 03/24/21 03:49 Ipratropium/Albuterol Sulfate 3 Ml Ampul.Neb IH 1 ampul Q6HRT INESSA Administration Lipase/Protease/Amylase 1 each 03/15/21 11:42 Lipase 10,500/Protease 25,000/Amylase 43,750 (Units) Dr White FEEDTUBE PRN PRN For Clogged Feeding Tube Apixaban 2.5 mg 03/22/21 22:00 03/23/21 21:10 Apixaban 2.5 Mg Tab PO 2.5 mg Q12HR INESSA Administration Protocol Ascorbic Acid 500 mg 03/14/21 22:00 03/23/21 21:11 Ascorbic Acid 500 Mg Tab PO 500 mg BID INESSA Administration Bisacodyl 10 mg 03/22/21 22:00 03/23/21 21:13 Bisacodyl 10 Mg Rect Supp ME Not Given QHS INESSA Dextrose 50 ml 03/14/21 11:02 03/15/21 11:40 Dextrose 50% In Water (25gm) 50 Ml Syringe IV 50 ml Q30MIN PRN Administration Hypoglycemia Protocol Famotidine 10 mg 03/17/21 22:00 03/23/21 21:11 Famotidine 10 Mg Tab PO 10 mg BID INESSA Administration Fentanyl 50 mcg 03/15/21 10:43 Fentanyl 100 Mcg/2 Ml Inj IV Q10MIN PRN ANALGESIA Hydralazine HCl 10 mg 03/15/21 10:10 03/15/21 10:32 Hydralazine 20 Mg/1 Ml Inj IV 10 mg Q4HR PRN Administration Hypertension Hydrophilic Ointment 1 applic 03/14/21 17:50 Lip Therapy Vaseline TP Q2HR PRN Dry Lips Propofol 1,000 mg in 100 mls @ 4.123 mls/hr 03/15/21 11:00 03/24/21 06:52 Diprivan 10 Mg/Ml IV 25 mcg/kg/min TITR INESSA 20.616 mls/hr Administration Protocol 5 MCG/KG/MIN Fentanyl Citrate 2,000 mcg in 100 mls @ 6.872 mls/hr 03/15/21 11:00 03/24/21 04:39 Fentanyl Drip Premix IV 3 mcg/kg/hr TITR INESSA 20.616 mls/hr Administration Protocol 1 MCG/KG/HR Sodium Chloride 500 mls @ 1 mls/hr 03/16/21 17:19 Nacl 0.9% 500 Ml IV DIRECT PRN ARTERIAL LINE FLUSH Vasopressin 20 unit/ Sodium 101 mls @ 9.09 mls/hr 03/21/21 16:00 03/23/21 21:44 Chloride IV 0.03 units/min TITR INESSA 9.09 mls/hr Administration Protocol 0.03 UNITS/MIN Sodium Chloride 100 mls @ 999 mls/hr 03/21/21 20:23 Nacl 0.9% IV KARLOS PRN Hypotension Cefazolin Sodium 2 gm/ Sodium 100 mls @ 200 mls/hr 03/22/21 19:00 03/23/21 18:04 Chloride IV 03/26/21 19:29 200 mls/hr Q24H INESSA Administration Protocol NORepinephrine/NS 8 MG-250 ML 8 mg in 250 mls @ 3.75 mls/hr 03/23/21 11:00 03/24/21 04:39 Norepinephrine/Ns 8 Mg-250 Ml (Double Conc) IV 4 mcg/min TITRATE INESSA 7.5 mls/hr Titration Protocol 2 MCG/MIN Insulin Human Lispro 0 unit 03/14/21 12:00 03/24/21 06:52 Insulin Lispro 100 Unit/Ml SUB-Q Not Given Q6HR INESSA Protocol Lorazepam 1 mg 03/13/21 19:40 03/18/21 14:11 Lorazepam 2 Mg/Ml Vial IV 1 mg Q4H PRN Administration Anxiety Metoclopramide HCl 5 mg 03/21/21 16:00 03/23/21 21:09 Metoclopramide 10 Mg/2 Ml Inj IV 5 mg Q6H INESSA Administration Multi-Ingred Cream/Lotion/Oil/Oint 1 applic 03/14/21 17:50 Mineral Oil/Petrolatum, White Ophth Oint 3.5 Gm OU Q4HR PRN Dry Eye(s) Ondansetron HCl 4 mg 03/13/21 19:30 03/21/21 12:05 Ondansetron 4 Mg/2 Ml Inj IV 4 mg Q8H PRN Administration Nausea And Vomiting Senna/Docusate Sodium 1 tab 03/14/21 22:00 03/23/21 21:12 Sennosides/Docusate Sodium 8.6/50 Mg Tab FEEDTUBE Not Given BID INESSA Simple Syrup 15 ml 03/15/21 11:42 Simple Syrup 15 Ml FEEDTUBE PRN PRN Hypoglycemia Simple Syrup 30 ml 03/15/21 11:42 Simple Syrup 15 Ml FEEDTUBE PRN PRN Hypoglycemia Sodium Bicarbonate 325 mg 03/15/21 11:42 03/21/21 17:21 Sodium Bicarbonate 325 Mg Tab FEEDTUBE 325 mg PRN PRN Administration For Clogged Feeding Tube Sodium Chloride 10 ml 03/13/21 22:00 03/23/21 21:13 Sodium Chloride 0.9% 10 Ml Flush Syringe IV 10 ml BID INESSA Administration Sodium Chloride 10 ml 03/13/21 19:30 Sodium Chloride 0.9% 10 Ml Flush Syringe IV PRN PRN LINE FLUSH Zinc Sulfate 220 mg 03/14/21 22:00 03/23/21 21:11 Zinc Sulfate 220 Mg Cap PO 220 mg BID INESSA Administration Nutrition/Malnutrition Assess - Dietary Evaluation Nutrition/Malnutrition Findings: Nutrition Notes Start: 03/15/21 11:06 Freq: Status: Active Protocol: Document 03/23/21 17:05 GB (Rec: 03/23/21 17:20 GB [id number]) Nutrition Notes Initial or Follow up Reassessment Current Diagnosis Respiratory Failure Other Pertinent Diagnosis SOB. PMHx: asthma, morbid obesity, crohn's disease Current Diet TF: Nepro start rate 10ml ( goal 44ml/hr) Labs/Tests 03/23: BUN 82, creatinine 9.1, K 5.2, P 10.8, Mg 3.5, Tg 381 A1c 6.3 Pertinent Medications Vit C, D5(PRN), Fentanyl Citrate, Propofol 20.616ml/hr (544kcal), vassopressin/NaCl, Zn Sulfate Height 5 ft 5 in Weight 137.438 kg [place] Body Weight (kg) 56.81 BMI 50.4 Weight change and time frame Unable to see weights recorded by RN on RN flow sheet. No weights have transferred to I/O summary. Subjective/Other Information Pt is intubated/sedated - continues BM: 03/23: diarrhea, incontinent, rectal tube placed MD note 03/23: plan for HD RN note: TF to start at 10ml/ hr continues. Increase as tolerated. TF currently at 20ml/hr advancing as tolerated. Percent of energy/protein needs met: TF at goal will meet 75% or greater of minimal EEN Burn Absent Trauma Absent GI Symptoms Diarrhea Difficulty In Swallowing Food Allergy No Skin Integrity/Comment No complications reported Current % PO Other Minimum of two criteria No #1 Nutrition Diagnosis Swallowing difficulty Comments: 03/17: intubation/sedation/TF continues 03/19: intubation/sedation/TF continues 03/23: intubation/sedation/TF continues Etiology SOB, respiratory failure As Evidenced by Signs and Symptoms intubated/sedated (03/14) Diagnosis Progress(for reassessment Continues documentation) Is patient on ventilator? Yes Is Patient Ambulatory and/or Out of Bed No REE-([facility]-confined to bed) 2515.536 Kcal/Kg value to use for calculation 15 Approximate Energy Requirements Using 2061 kcal/Kg Calculation Used for Recommendations Kcal/kg Additional Notes Protein 0.6g/kg or greater @ 137g or greater Fluids: 1ml/kcal or per MD Post weight in I/O flow sheet Nutrition Intervention Change Diet Order: NPO Nutrition Support: 03/19: Nepro @ 44ml/hr (10ml/hr slowly advancing to goal as tolerated) Flush: 155ml/4hr Total free H2O/day: TF@goal + flush = 1700ml Kcal 1,900 Protein (gm) 86 Carbohydrates (gm) 170 Fat (gm) 101 Fluid (mL) 767 Fiber (gm) 13 % RDI: 100kcal/104pro Goal #1 TF started and tolerated by f/ u 03/17 met, changing to nepro 03/19: nepro, post vomiting event, TF restarted @10ml advancing as tolerated. 03/23: TF at 20ml/hr. Advancing as tolerated Goal #2 TF at goal by f/u 03/19: restarted at 10ml/hr advancing to goal. Currently at 20ml/hr. 03/23: remaining at 20ml/hr advancing as tolerated. Follow-Up By: 03/26/21 Additional Comments f/u: TF tolerance, vent status
[2021-03-24] MEDS: NORepinephrine/NS 8 MG-250 ML 8 MG/250 ML INFUS..BTL IV SCH (01:41)
[2021-03-24] MEDS: IPRATROPIUM/ALBUTEROL SULFATE 3 ML AMPUL.NEB IH SCH ×4 (03:49→21:02)
[2021-03-24] MEDS: INSULIN LISPRO 100 UNIT/ML SUB-Q SCH ×4 (03:56→17:00)
[2021-03-24] MEDS: fentaNYL DRIP Premix 2,000 MCG/100 ML BAG IV SCH ×4 (04:39→20:51)
[2021-03-24 04:54] LABS: Hemoglobin 8.1 gm/dl (10.1-14.3); Mean Corpuscular HGB Conc 32 % (30-34); Mean Corpuscular Volume 84 fl (79-97); Platelet Count 124 K/mm3 (140-440); Red Blood Count 2.96 M/mm3 (3.65-5.03); Red Cell Distribution Width 17.7 % (13.2-15.2)
[2021-03-24 05:13] LABS: Calcium 8.6 mg/dL (8.4-10.2)
[2021-03-24] MEDS: FAMOTIDINE 10 MG TAB PO SCH ×2 (10:41→21:40)
[2021-03-24] MEDS: ASCORBIC ACID 500 MG TAB PO SCH ×2 (10:41→21:47)
[2021-03-24] MEDS: METOCLOPRAMIDE 10 MG/2 ML INJ IV SCH ×3 (10:42→21:47)
[2021-03-24] MEDS: APIXABAN 2.5 MG TAB PO SCH ×2 (10:42→21:40)
[2021-03-24] MEDS: SENNOSIDES/DOCUSATE SODIUM 8.6/50 MG TAB FEEDTUBE SCH ×2 (10:42→21:40)
[2021-03-24] MEDS: ZINC SULFATE 220 MG CAP PO SCH ×2 (10:42→21:40)
--- NOTE | 2021-03-24 13:04 | Progress Note ---
<ANCELMO GONZALEZ - Last Filed: 03/24/21 14:21> Assessment and Plan Assessment and plan: This is a 31-year-old female with history of asthma, morbid obesity, and Crohn's disease who came in complaining of severe wheezing and shortness of breath for the last 4 days that was not relieved by her home nebs and rescue inhalers. Patient was initially admitted to IMCU on bipap but was subsequently intubated due to severe respiratory distress and was unable to protect her aiway. Patient was found to have acute respiratory failure 2/2 to COVID PNA requiring vent support and SAI. Hospital Course to Date: 03/14/21- Patient is s/p intubation from this morning, sedated on propofol and fentanyl RASS -3 to -4. ETT above the clavicles advanced by 2cc. Continue nebs and IV steroids per [facility]. COVID swab pending. Hyperkalemia improved, X1 dose of kayaxalate ordered. Low BP and low urine output this am, fluid bolus challenge, 500cc of NS bolus given. Continue to monitor electrolytes and renal function, repeat BMP this afternoon. 03/15: Patient's renal function noted to be significantly worse today, patient was hyperkalemic and this was medically treated. Patient initiated on hemodialysis today. Patient disease was consulted today. 03/16: No acute events reported overnight, patient received hemodialysis yesterday. Patient is currently on propofol and fentanyl. 03/17: Patient received hemodialysis today, patient is slightly acidotic on ABG however [facility] is allowing for permissive hypercapnia, tracheal aspirate with Staph aureus and ID is aware. 03/18: Patient is having high residuals today and Reglan was started, patient will receive HD daily per nephrology, correct her change in FiO2 as tolerated. 03/19: HD per nephrology today, antibiotics changed to cefazolin. Patient did not tolerate tube feedings as she had high residuals this morning and they were turned off. Not restarted yet. Updated family at bedside today 03/20: HD today, ddimer noted to be >1000, Tolerating trickle TF. Stat BLE dopplar US 03/21: Patient is not tolerating TF, CXR shows worsening infiltrates, [facility] made c hanges to vent, TF on hold and started on IVF. 03/22/21- Patient remains intubated and on sedation. Persistent vomiting, TF held overnight, no documented BM, on reglan BR added, Shaun citarte & supp. HD today. Plan to restart TF at 10ml/hr, will reevaluate in the am. Persistent thrombocytopenia, Hep on hold, HIT panel ordered, PO eliquis initiated. 03/23/21- Patient remains on the vent and sedated on propofol and fentanyl RASS - 2 to -3. Possible SAT today as tolerated. Patient tolerated trickle feeds overnight, plan to advance TF by 10cc Q8 to 12hrs. Continue current BR and continue reglan for now. Slightr worsening in acidosis from this am, d/w CCM vent setting adjusted, will repeat ABG at 9pm. 03/24/21- Patient is on the vent and sedated, on fentanyl and propfol. Bilateral subconjunctival hemorrhage with periorbital edema noted this am, pupils are round and reactive, will Cipro/Dex [id number]. Worsening of kidney function from today's labs, plan for HD per Nephro. Assessment and Plan #Neuro: Sedated - Intubated and sedated on propofol and fentanyl RASS -2 - Titrate sedation for RASS goal 0 to -2 - Daily SAT and SBT per [facility] - Avoid benzodiazepine's, reduce the possibility of delirium - Prn analgesia for CPOT greater than 3 - Maintenance of sleep-wake cycle -Bilateral wrist restraints in place for safety #Subconjunctival hemorrhage #Periorbital Edema - Acute swelling/edema with subconjunctival hemorrhage noted this am - No report of possible trauma/injury - pupils are round and reactive, no drainage noted - Patient is sedated on fentanyl and propofol RASS -1 to -2, following commands - Possibly due to elevated venous pressure vs coughing - Cipro/Dex was initiated [id number] - Patient is on Eliquis - H&H remains stable - Will continue to monitor #CV:Tachycardia #HTN - ST on the monitor - Back on low dose pressors - Continue blood pressure monitor per protocol - Maintain MAP above 65 - AC switched to Eliquis - C/f for HIT, HIT panel pending #Acute Respiratory Failure #COVID PNA #RUL PNA #Asthma Exacerbation #Bronchospasm- resolved - 03/13 CXR- possible minimal patchy RUL pneumonia - 03/14 CXR- increasing patchy parenchymal opacities bilaterally - C/f for aspiration while patient was on Bipap - Intubated on 03/14 for airway protection - High Peak pressure post intubation--> bronchospasm - COVID swab positive - Vent setting: PRVC- 70%,12,24,500 - AM ABG noted - Vent adjusted by CCM - CCM consulted, appreciate recommendations - Continue IV Steroids and Nebs per CCM - VAP bundle addressed - Aspiration precaution HOB above 30 - Daily SBT and SAT trials as tolerated - Daily ABG and CXR - Continue SPO2 monitoring for SPO2 goal above 92% #GI: Projectile Vomitting- resolved - Patient on enteral nutrition - TF now at goal - BM this am 03/23 - 03/22 BR adjusted, X1 dose of mag citrate and Supp - Continue BR: colace and senokot - Continue Pepcid and reglan - PRN entiemetic for N/V #:Acute Kidney Injury most likely ATN #Hyperkalemia - Initial cr. was 0.8-- up to 10.8 this am - HD was initiated on 03/15 - Patient is oliguric - Last HD on 03/22 - Plan for HD today - Continue HD per Nephro - Strict intake and output - Avoid nephrotoxic medications; Renally dose medications - Monitor and replace electrolytes as needed - Nephro on consult #ID:COVID Pneumonia #RUL PNA #Possible aspiration Pneumonia #Leukocytosis - WBCs downtrending today - TMAx 100.3 - COVID swab positive - 03/13 BC x2 no growth to date - 03/14 tracheal aspirate with Staph aureus (ID aware) - Patient received X1 dose of redemsevir, was D/C due to worsen renal function - Received X1 dose actemra - Continue IV Abx per ID - Trend COVID-19 inflammatory markers - Isolation/droplet precautions - On Vitamin C/vitamin D/zinc - Daily CBC monitor - ID on consult #Endo: Hyperglycemia - Hemoglobin A1c 6.3 - Continue SSI Q6hrs - While critically ill target blood glucose of 140-180 - Avoid hypoglycemia The high probability of a clinically significant, sudden or life threatening deterioration of the [multiple] system(s) required my full and direct attention, intervention and personal management. The aggregate critical care time was [60] minutes. This time is in addition to time spent performing reported procedures but includes the following: [x] Data Review and interpretation [x] Patient assessment and monitoring of vital signs [x] Documentation [x] Medication orders and management Disposition Plan: ICU Total Time Spent with Patient (Minutes): 60 History Interval history: Patient is seen and examined at the bedside. Patient remains on the vent and sedated. Bilateral subconjunctival hemorrhage with periorbital edema noted this am, pupils are round and reactive. VENICE overnight Hospitalist Physical - Constitutional Vitals: Temp Pulse Resp BP Pulse Ox 97.0 F L 83 24 142/65 100 03/24/21 09:15 03/24/21 11:00 03/24/21 11:00 03/24/21 11:00 03/24/21 11:00 General appearance: Present: no acute distress, well-nourished, obese, other (Intubated and sedated) - EENT Eyes: Present: PERRL - Respiratory Respiratory effort: normal Respiratory: bilateral: wheezing - Cardiovascular Rhythm: regular Heart Sounds: Present: S1 & S2 - Extremities Extremities: no ischemia, pulses intact, pulses symmetrical Extremity abnormal: edema - Peripheral Assessment Generalized Edema Type: Non-pitting Edema Degree: 1+ Capillary Refill: < 3 seconds Skin Temperature: Warm Peripheral Pulses: within normal limits - Abdominal General gastrointestinal: soft, non-tender, normal bowel sounds - Integumentary Integumentary: Present: clear, warm, dry - Psychiatric Psychiatric: other (Intubated and sedated) - Neurologic Neurologic: other (Intubated and sedated) - Allied Health Allied health notes reviewed: nursing Results - Labs CBC & Chem 7: 03/24/21 04:00 03/24/21 04:00 Labs: Laboratory Last Values WBC 17.8 K/mm3 (4.5-11.0) H 03/24/21 04:00 RBC 2.96 M/mm3 (3.65-5.03) L 03/24/21 04:00 Hgb 8.1 gm/dl (10.1-14.3) L 03/24/21 04:00 Hct 25.0 % (30.3-42.9) L 03/24/21 04:00 MCV 84 fl (79-97) 03/24/21 04:00 MCH 27 pg (28-32) L 03/24/21 04:00 MCHC 32 % (30-34) 03/24/21 04:00 RDW 17.7 % (13.2-15.2) H 03/24/21 04:00 Plt Count 124 K/mm3 (140-440) L 03/24/21 04:00 Lymph % (Auto) 7.8 % (13.4-35.0) L 03/14/21 06:21 Williamson % (Auto) 6.7 % (0.0-7.3) 03/14/21 06:21 Eos % (Auto) 0.0 % (0.0-4.3) 03/14/21 06:21 Baso % (Auto) 0.1 % (0.0-1.8) 03/14/21 06:21 Lymph # (Auto) 1.6 K/mm3 (1.2-5.4) 03/14/21 06:21 Williamson # (Auto) 1.3 K/mm3 (0.0-0.8) H 03/14/21 06:21 Eos # (Auto) 0.0 K/mm3 (0.0-0.4) 03/14/21 06:21 Baso # (Auto) 0.0 K/mm3 (0.0-0.1) 03/14/21 06:21 Seg Neutrophils % 85.4 % (40.0-70.0) H 03/14/21 06:21 Seg Neutrophils # 17.1 K/mm3 (1.8-7.7) H 03/14/21 06:21 PT 15.8 Sec. (12.2-14.9) H 03/22/21 13:40 INR 1.14 (0.87-1.13) H 03/22/21 13:40 APTT 26.8 Sec. (24.2-36.6) 03/22/21 13:40 D-Dimer > 66180 ng/mlDDU (0-234) H 03/22/21 13:40 ABG pH 7.190 (7.320-7.450) L 03/23/21 08:44 POC ABG pCO2 57.9 mmHg (32.0-48.0) H 03/23/21 08:44 ABG pCO2 67.1 mm Hg 03/22/21 21:25 POC ABG pO2 79.2 mmHg (83-108) L 03/23/21 08:44 ABG pO2 97.9 mm Hg (80.0-90.0) H 03/22/21 21:25 POC ABG HCO3 21.6 03/23/21 08:44 ABG HCO3 25.0 mmol/L (20.0-26.0) 03/22/21 21:25 ABG O2 Saturation 93.0 (0-100) 03/23/21 08:44 ABG O2 Content 12.4 (0.0-44) 03/22/21 21:25 POC ABG Base Excess -7 03/23/21 08:44 ABG Base Excess -3.7 mmol/L (-2.0-3.0) L 03/22/21 21:25 ABG Hemoglobin 11.8 (12.0-17.5) L 03/23/21 08:44 ABG Oxyhemoglobin 92.3 (94-98) L 03/23/21 08:44 ABG Carboxyhemoglobin 1.4 % (0.0-5.0) 03/22/21 21:25 ABG Methemoglobin 0.3 (0.0-1.5) 03/23/21 08:44 ABG Sodium 131.0 mmol/L (136.0-145.0) L 03/23/21 08:44 ABG Potassium 5.0 mmol/L (3.40-4.50) H 03/23/21 08:44 ABG Chloride 100.0 mmol/L (98-107) 03/23/21 08:44 ABG Glucose 122 mg/dL (65-95) H 03/23/21 08:44 Oxyhemoglobin 94.4 % (95.0-99.0) L 03/22/21 21:25 Carboxyhemoglobin 0.4 (0.5-1.5) L 03/23/21 08:44 FiO2 85 % 03/22/21 21:25 FiO2 % 0.8 03/23/21 08:44 Sodium 138 mmol/L (137-145) 03/24/21 04:00 Potassium 4.6 mmol/L (3.6-5.0) 03/24/21 04:00 Chloride 95.6 mmol/L (98-107) L 03/24/21 04:00 Carbon Dioxide 20 mmol/L (22-30) L 03/24/21 04:00 Anion Gap 27 mmol/L 03/24/21 04:00 BUN 108 mg/dL (7-17) H 03/24/21 04:00 Creatinine 10.8 mg/dL (0.6-1.2) H 03/24/21 04:00 Estimated GFR 5 ml/min 03/24/21 04:00 BUN/Creatinine Ratio 10 % 03/24/21 04:00 Glucose 155 mg/dL (65-100) H 03/24/21 04:00 POC Glucose 142 mg/dL (70-105) H 03/24/21 12:29 Hemoglobin A1c 6.3 % (4-6) H 03/15/21 05:09 Lactic Acid 2.00 mmol/L (0.7-2.0) 03/14/21 18:47 Calcium 8.6 mg/dL (8.4-10.2) 03/24/21 04:00 Phosphorus 10.80 mg/dL (2.5-4.5) H 03/23/21 04:30 Magnesium 3.50 mg/dL (1.7-2.3) H 03/23/21 04:30 Ferritin 151.6 ng/mL (10.0-200.0) 03/18/21 04:30 Total Bilirubin 0.20 mg/dL (0.1-1.2) 03/17/21 05:23 AST 35 units/L (5-40) 03/17/21 05:23 ALT 24 units/L (7-56) 03/17/21 05:23 Alkaline Phosphatase 78 units/L (35-129) 03/17/21 05:23 Lactate Dehydrogenase 477 units/L (91-180) H 03/18/21 04:30 C-Reactive Protein 9.40 mg/dL (0.00-1.30) H 03/22/21 10:00 Total Protein 6.7 g/dL (6.3-8.2) 03/17/21 05:23 Albumin 3.2 g/dL (3.9-5) L 03/17/21 05:23 Albumin/Globulin Ratio 0.9 % 03/17/21 05:23 Triglycerides 381 mg/dL (2-149) H 03/23/21 04:30 Procalcitonin < 0.05 ng/mL (<0.15) 03/13/21 15:40 HCG, Qual Negative (Negative) 03/13/21 13:26 Arterial Blood Glucose 122 mg/dL (65-95) H 03/23/21 08:44 Arterial Blood Ionized Calcium 4.4 mg/dL (4.6-5.3) L 03/23/21 08:44 Urine Creatinine 40.1 mg/dL (0.1-20.0) H 03/14/21 17:50 Urine Sodium 124 mmol/L 03/14/21 17:50 Random Vancomycin 11.2 ug/mL (0-40.0) 03/20/21 04:23 Coronavirus (PCR) Positive (Negative) A 03/14/21 Unknown Hepatitis A IgM Ab Non-reactive (NonReactive) 03/15/21 05:09 Hep Bs Antigen Nonreactive (Negative) 03/15/21 05:09 Hep B Core IgM Ab Non-reactive (NonReactive) 03/15/21 05:09 Hepatitis C Antibody Non-reactive (NonReactive) 03/15/21 05:09 Microbiology: Microbiology 03/23/21 15:34 Peripheral/Venous Blood Culture - Preliminary Culture in Progress 03/23/21 15:44 Peripheral/Venous Blood Culture - Preliminary Culture in Progress Bazan/IV: Voiding Method Indwelling Catheter Active Medications - Current Medications Current Medications: Generic Name Dose Route Start Last Admin Trade Name Freq PRN Reason Stop Dose Admin Acetaminophen 650 mg 03/13/21 19:30 Acetaminophen 325 Mg Tab PO Q4H PRN Pain MILD(1-3)/Fever >100.5/SALAS Albuterol 2.5 mg 03/19/21 00:53 Albuterol 2.5 Mg/3 Ml Nebu IH Q4HRT PRN Shortness Of Breath Albuterol/Ipratropium 1 ampul 03/19/21 08:00 03/24/21 08:18 Ipratropium/Albuterol Sulfate 3 Ml Ampul.Neb IH 1 ampul Q6HRT INESSA Administration Lipase/Protease/Amylase 1 each 03/15/21 11:42 Lipase 10,500/Protease 25,000/Amylase 43,750 (Units) Dr White FEEDTUBE PRN PRN For Clogged Feeding Tube Apixaban 2.5 mg 03/22/21 22:00 03/24/21 10:42 Apixaban 2.5 Mg Tab PO 2.5 mg Q12HR INESSA Administration Protocol Ascorbic Acid 500 mg 03/14/21 22:00 03/24/21 10:41 Ascorbic Acid 500 Mg Tab PO 500 mg BID INESSA Administration Bisacodyl 10 mg 03/22/21 22:00 03/23/21 21:13 Bisacodyl 10 Mg Rect Supp AR Not Given QHS INESSA Dextrose 50 ml 03/14/21 11:02 03/15/21 11:40 Dextrose 50% In Water (25gm) 50 Ml Syringe IV 50 ml Q30MIN PRN Administration Hypoglycemia Protocol Famotidine 10 mg 03/17/21 22:00 03/24/21 10:41 Famotidine 10 Mg Tab PO 10 mg BID INESSA Administration Fentanyl 50 mcg 03/15/21 10:43 Fentanyl 100 Mcg/2 Ml Inj IV Q10MIN PRN ANALGESIA Hydralazine HCl 10 mg 03/15/21 10:10 03/15/21 10:32 Hydralazine 20 Mg/1 Ml Inj IV 10 mg Q4HR PRN Administration Hypertension Hydrophilic Ointment 1 applic 03/14/21 17:50 Lip Therapy Vaseline TP Q2HR PRN Dry Lips Propofol 1,000 mg in 100 mls @ 4.123 mls/hr 03/15/21 11:00 03/24/21 10:41 Diprivan 10 Mg/Ml IV 25 mcg/kg/min TITR INESSA 20.616 mls/hr Administration Protocol 5 MCG/KG/MIN Fentanyl Citrate 2,000 mcg in 100 mls @ 6.872 mls/hr 03/15/21 11:00 03/24/21 12:50 Fentanyl Drip Premix IV 2 mcg/kg/hr TITR INESSA 13.744 mls/hr Administration Protocol 1 MCG/KG/HR Sodium Chloride 500 mls @ 1 mls/hr 03/16/21 17:19 Nacl 0.9% 500 Ml IV DIRECT PRN ARTERIAL LINE FLUSH Vasopressin 20 unit/ Sodium 101 mls @ 9.09 mls/hr 03/21/21 16:00 03/24/21 08:10 Chloride IV 0 units/min TITR INESSA 0 mls/hr Titration Protocol 0.03 UNITS/MIN Sodium Chloride 100 mls @ 999 mls/hr 03/21/21 20:23 Nacl 0.9% IV KARLOS PRN Hypotension Cefazolin Sodium 2 gm/ Sodium 100 mls @ 200 mls/hr 03/22/21 19:00 03/23/21 18:04 Chloride IV 03/26/21 19:29 200 mls/hr Q24H INESSA Administration Protocol NORepinephrine/NS 8 MG-250 ML 8 mg in 250 mls @ 3.75 mls/hr 03/23/21 11:00 03/24/21 04:39 Norepinephrine/Ns 8 Mg-250 Ml (Double Conc) IV 4 mcg/min TITRATE INESSA 7.5 mls/hr Titration Protocol 2 MCG/MIN Insulin Human Lispro 0 unit 03/14/21 12:00 03/24/21 06:52 Insulin Lispro 100 Unit/Ml SUB-Q Not Given Q6HR INESSA Protocol Lorazepam 1 mg 03/13/21 19:40 03/18/21 14:11 Lorazepam 2 Mg/Ml Vial IV 1 mg Q4H PRN Administration Anxiety Metoclopramide HCl 5 mg 03/21/21 16:00 03/24/21 10:42 Metoclopramide 10 Mg/2 Ml Inj IV 5 mg Q6H INESSA Administration Multi-Ingred Cream/Lotion/Oil/Oint 1 applic 03/14/21 17:50 Mineral Oil/Petrolatum, White Ophth Oint 3.5 Gm OU Q4HR PRN Dry Eye(s) Ondansetron HCl 4 mg 03/13/21 19:30 03/21/21 12:05 Ondansetron 4 Mg/2 Ml Inj IV 4 mg Q8H PRN Administration Nausea And Vomiting Senna/Docusate Sodium 1 tab 03/14/21 22:00 03/24/21 10:42 Sennosides/Docusate Sodium 8.6/50 Mg Tab FEEDTUBE 1 tab BID INESSA Administration Simple Syrup 15 ml 03/15/21 11:42 Simple Syrup 15 Ml FEEDTUBE PRN PRN Hypoglycemia Simple Syrup 30 ml 03/15/21 11:42 Simple Syrup 15 Ml FEEDTUBE PRN PRN Hypoglycemia Sodium Bicarbonate 325 mg 03/15/21 11:42 03/21/21 17:21 Sodium Bicarbonate 325 Mg Tab FEEDTUBE 325 mg PRN PRN Administration For Clogged Feeding Tube Sodium Chloride 10 ml 03/13/21 22:00 03/24/21 10:43 Sodium Chloride 0.9% 10 Ml Flush Syringe IV 10 ml BID INESSA Administration Sodium Chloride 10 ml 03/13/21 19:30 Sodium Chloride 0.9% 10 Ml Flush Syringe IV PRN PRN LINE FLUSH Zinc Sulfate 220 mg 03/14/21 22:00 03/24/21 10:42 Zinc Sulfate 220 Mg Cap PO 220 mg BID INESSA Administration Nutrition/Malnutrition Assess - Dietary Evaluation Nutrition/Malnutrition Findings: Nutrition Notes Start: 03/15/21 11:06 Freq: Status: Active Protocol: Document 03/23/21 17:05 GB (Rec: 03/23/21 17:20 GB [id number]) Nutrition Notes Initial or Follow up Reassessment Current Diagnosis Respiratory Failure Other Pertinent Diagnosis SOB. PMHx: asthma, morbid obesity, crohn's disease Current Diet TF: Nepro start rate 10ml ( goal 44ml/hr) Labs/Tests 03/23: BUN 82, creatinine 9.1, K 5.2, P 10.8, Mg 3.5, Tg 381 A1c 6.3 Pertinent Medications Vit C, D5(PRN), Fentanyl Citrate, Propofol 20.616ml/hr (544kcal), vassopressin/NaCl, Zn Sulfate Height 5 ft 5 in Weight 137.438 kg [place] Body Weight (kg) 56.81 BMI 50.4 Weight change and time frame Unable to see weights recorded by RN on RN flow sheet. No weights have transferred to I/O summary. Subjective/Other Information Pt is intubated/sedated - continues BM: 03/23: diarrhea, incontinent, rectal tube placed MD note 03/23: plan for HD RN note: TF to start at 10ml/ hr continues. Increase as tolerated. TF currently at 20ml/hr advancing as tolerated. Percent of energy/protein needs met: TF at goal will meet 75% or greater of minimal EEN Burn Absent Trauma Absent GI Symptoms Diarrhea Difficulty In Swallowing Food Allergy No Skin Integrity/Comment No complications reported Current % PO Other Minimum of two criteria No #1 Nutrition Diagnosis Swallowing difficulty Comments: 03/17: intubation/sedation/TF continues 03/19: intubation/sedation/TF continues 03/23: intubation/sedation/TF continues Etiology SOB, respiratory failure As Evidenced by Signs and Symptoms intubated/sedated (03/14) Diagnosis Progress(for reassessment Continues documentation) Is patient on ventilator? Yes Is Patient Ambulatory and/or Out of Bed No REE-([facility]-confined to bed) 2515.536 Kcal/Kg value to use for calculation 15 Approximate Energy Requirements Using 2061 kcal/Kg Calculation Used for Recommendations Kcal/kg Additional Notes Protein 0.6g/kg or greater @ 137g or greater Fluids: 1ml/kcal or per MD Post weight in I/O flow sheet Nutrition Intervention Change Diet Order: NPO Nutrition Support: 03/19: Nepro @ 44ml/hr (10ml/hr slowly advancing to goal as tolerated) Flush: 155ml/4hr Total free H2O/day: TF@goal + flush = 1700ml Kcal 1,900 Protein (gm) 86 Carbohydrates (gm) 170 Fat (gm) 101 Fluid (mL) 767 Fiber (gm) 13 % RDI: 100kcal/104pro Goal #1 TF started and tolerated by f/ u 03/17 met, changing to nepro 03/19: nepro, post vomiting event, TF restarted @10ml advancing as tolerated. 03/23: TF at 20ml/hr. Advancing as tolerated Goal #2 TF at goal by f/u 03/19: restarted at 10ml/hr advancing to goal. Currently at 20ml/hr. 03/23: remaining at 20ml/hr advancing as tolerated. Follow-Up By: 03/26/21 Additional Comments f/u: TF tolerance, vent status <WESLEY LANCASTER - Last Filed: 03/24/21 17:24> Assessment and Plan Assessment and plan: I saw and evaluated the patient. I agree with the findings and the plan of care as documented in the Nurse Practitioner's~note, with the following corrections and additions. Hospitalist Physical - Constitutional Vitals: Temp Pulse Resp BP Pulse Ox 97.0 F L 104 H 28 H 124/57 98 03/24/21 09:15 03/24/21 16:15 03/24/21 16:15 03/24/21 16:15 03/24/21 16:15 Results - Labs CBC & Chem 7: 03/24/21 04:00 03/24/21 04:00 Labs: Laboratory Last Values WBC 17.8 K/mm3 (4.5-11.0) H 03/24/21 04:00 RBC 2.96 M/mm3 (3.65-5.03) L 03/24/21 04:00 Hgb 8.1 gm/dl (10.1-14.3) L 03/24/21 04:00 Hct 25.0 % (30.3-42.9) L 03/24/21 04:00 MCV 84 fl (79-97) 03/24/21 04:00 MCH 27 pg (28-32) L 03/24/21 04:00 MCHC 32 % (30-34) 03/24/21 04:00 RDW 17.7 % (13.2-15.2) H 03/24/21 04:00 Plt Count 124 K/mm3 (140-440) L 03/24/21 04:00 Lymph % (Auto) 7.8 % (13.4-35.0) L 03/14/21 06:21 Williamson % (Auto) 6.7 % (0.0-7.3) 03/14/21 06:21 Eos % (Auto) 0.0 % (0.0-4.3) 03/14/21 06:21 Baso % (Auto) 0.1 % (0.0-1.8) 03/14/21 06:21 Lymph # (Auto) 1.6 K/mm3 (1.2-5.4) 03/14/21 06:21 Williamson # (Auto) 1.3 K/mm3 (0.0-0.8) H 03/14/21 06:21 Eos # (Auto) 0.0 K/mm3 (0.0-0.4) 03/14/21 06:21 Baso # (Auto) 0.0 K/mm3 (0.0-0.1) 03/14/21 06:21 Seg Neutrophils % 85.4 % (40.0-70.0) H 03/14/21 06:21 Seg Neutrophils # 17.1 K/mm3 (1.8-7.7) H 03/14/21 06:21 PT 15.8 Sec. (12.2-14.9) H 03/22/21 13:40 INR 1.14 (0.87-1.13) H 03/22/21 13:40 APTT 26.8 Sec. (24.2-36.6) 03/22/21 13:40 D-Dimer > 73526 ng/mlDDU (0-234) H 03/22/21 13:40 ABG pH 7.223 (7.320-7.450) L 03/23/21 21:00 POC ABG pCO2 50.3 mmHg (32.0-48.0) H 03/23/21 21:00 ABG pCO2 67.1 mm Hg 03/22/21 21:25 POC ABG pO2 114.4 mmHg (83-108) H 03/23/21 21:00 ABG pO2 97.9 mm Hg (80.0-90.0) H 03/22/21 21:25 POC ABG HCO3 20.3 03/23/21 21:00 ABG HCO3 25.0 mmol/L (20.0-26.0) 03/22/21 21:25 ABG O2 Saturation 97.3 (0-100) 03/23/21 21:00 ABG O2 Content 12.4 (0.0-44) 03/22/21 21:25 POC ABG Base Excess -7.1 03/23/21 21:00 ABG Base Excess -3.7 mmol/L (-2.0-3.0) L 03/22/21:25 ABG Hemoglobin 8.8 (12.0-17.5) L 03/23/21 21:00 ABG Oxyhemoglobin 97.1 (94-98) 03/23/21 21:00 ABG Carboxyhemoglobin 1.4 % (0.0-5.0) 03/22/21 21:25 ABG Methemoglobin 0 (0.0-1.5) 03/23/21 21:00 ABG Sodium 130.4 mmol/L (136.0-145.0) L 03/23/21 21:00 ABG Potassium 5.1 mmol/L (3.40-4.50) H 03/23/21 21:00 ABG Chloride 100.0 mmol/L (98-107) 03/23/21 21:00 ABG Glucose 126 mg/dL (65-95) H 03/23/21 21:00 Oxyhemoglobin 94.4 % (95.0-99.0) L 03/22/21: Carboxyhemoglobin 0.2 (0.5-1.5) L 03/23/21 21:00 FiO2 85 % 03/22/21 21:25 FiO2 % 0.80 03/23/21 21:00 Sodium 138 mmol/L (137-145) 03/24/21 04:00 Potassium 4.6 mmol/L (3.6-5.0) 03/24/21 04:00 Chloride 95.6 mmol/L (98-107) L 03/24/21 04:00 Carbon Dioxide 20 mmol/L (22-30) L 03/24/21 04:00 Anion Gap 27 mmol/L 03/24/21 04:00 BUN 108 mg/dL (7-17) H 03/24/21 04:00 Creatinine 10.8 mg/dL (0.6-1.2) H 03/24/21 04:00 Estimated GFR 5 ml/min 03/24/21 04:00 BUN/Creatinine Ratio 10 % 03/24/21 04:00 Glucose 155 mg/dL (65-100) H 03/24/21 04:00 POC Glucose 94 mg/dL (70-105) 03/24/21 16:38 Hemoglobin A1c 6.3 % (4-6) H 03/15/21 05:09 Lactic Acid 2.00 mmol/L (0.7-2.0) 03/14/21 18:47 Calcium 8.6 mg/dL (8.4-10.2) 03/24/21 04:00 Phosphorus 10.80 mg/dL (2.5-4.5) H 03/23/21 04:30 Magnesium 3.50 mg/dL (1.7-2.3) H 03/23/21 04:30 Ferritin 151.6 ng/mL (10.0-200.0) 03/18/21 04:30 Total Bilirubin 0.20 mg/dL (0.1-1.2) 03/17/21 05:23 AST 35 units/L (5-40) 03/17/21 05:23 ALT 24 units/L (7-56) 03/17/21 05:23 Alkaline Phosphatase 78 units/L (35-129) 03/17/21 05:23 Lactate Dehydrogenase 477 units/L (91-180) H 03/18/21 04:30 C-Reactive Protein 9.40 mg/dL (0.00-1.30) H 03/22/21 10:00 Total Protein 6.7 g/dL (6.3-8.2) 03/17/21 05:23 Albumin 3.2 g/dL (3.9-5) L 03/17/21 05:23 Albumin/Globulin Ratio 0.9 % 03/17/21 05:23 Triglycerides 381 mg/dL (2-149) H 03/23/21 04:30 Procalcitonin < 0.05 ng/mL (<0.15) 03/13/21 15:40 HCG, Qual Negative (Negative) 03/13/21 13:26 Arterial Blood Glucose 126 mg/dL (65-95) H 03/23/21 21:00 Arterial Blood Ionized Calcium 4.4 mg/dL (4.6-5.3) L 03/23/21 21:00 Urine Creatinine 40.1 mg/dL (0.1-20.0) H 03/14/21 17:50 Urine Sodium 124 mmol/L 03/14/21 17:50 Random Vancomycin 11.2 ug/mL (0-40.0) 03/20/21 04:23 Coronavirus (PCR) Positive (Negative) A 03/14/21 Unknown Hepatitis A IgM Ab Non-reactive (NonReactive) 03/15/21 05:09 Hep Bs Antigen Nonreactive (Negative) 03/15/21 05:09 Hep B Core IgM Ab Non-reactive (NonReactive) 03/15/21 05:09 Hepatitis C Antibody Non-reactive (NonReactive) 03/15/21 05:09 Microbiology: Microbiology 03/23/21 16:40 Tracheal Aspirate Sputum Culture - Preliminary 03/23/21 15:34 Peripheral/Venous Blood Culture - Preliminary Culture in Progress 03/23/21 15:44 Peripheral/Venous Blood Culture - Preliminary Culture in Progress [place]/IV: Voiding Method Indwelling Catheter Active Medications - Current Medications Current Medications: Generic Name Dose Route Start Last Admin Trade Name Freq PRN Reason Stop Dose Admin Acetaminophen 650 mg 03/13/21 19:30 Acetaminophen 325 Mg Tab PO Q4H PRN Pain MILD(1-3)/Fever >100.5/SALAS Albuterol 2.5 mg 03/19/21 00:53 Albuterol 2.5 Mg/3 Ml Nebu IH Q4HRT PRN Shortness Of Breath Albuterol/Ipratropium 1 ampul 03/19/21 08:00 03/24/21 16:08 Ipratropium/Albuterol Sulfate 3 Ml Ampul.Neb IH 1 ampul Q6HRT INESSA Administration Lipase/Protease/Amylase 1 each 03/15/21 11:42 Lipase 10,500/Protease 25,000/Amylase 43,750 (Units) Dr White FEEDTUBE PRN PRN For Clogged Feeding Tube Apixaban 2.5 mg 03/22/21 22:00 03/24/21 10:42 Apixaban 2.5 Mg Tab PO 2.5 mg Q12HR INESSA Administration Protocol Ascorbic Acid 500 mg 03/14/21 22:00 03/24/21 10:41 Ascorbic Acid 500 Mg Tab PO 500 mg BID INESSA Administration Bisacodyl 10 mg 03/22/21 22:00 03/23/21 21:13 Bisacodyl 10 Mg Rect Supp AR Not Given QHS INESSA Ciprofloxacin/Dexamethasone 1 drops 03/24/21 18:00 03/24/21 17:18 Ciprofloxacin/Dexameth Otic Susp 7.5ml TP 03/29/21 17:59 1 drops QID INESSA Administration Dextrose 50 ml 03/14/21 11:02 03/15/21 11:40 Dextrose 50% In Water (25gm) 50 Ml Syringe IV 50 ml Q30MIN PRN Administration Hypoglycemia Protocol Famotidine 10 mg 03/17/21 22:00 03/24/21 10:41 Famotidine 10 Mg Tab PO 10 mg BID INESSA Administration Fentanyl 50 mcg 03/15/21 10:43 Fentanyl 100 Mcg/2 Ml Inj IV Q10MIN PRN ANALGESIA Hydralazine HCl 10 mg 03/15/21 10:10 03/15/21 10:32 Hydralazine 20 Mg/1 Ml Inj IV 10 mg Q4HR PRN Administration Hypertension Hydrophilic Ointment 1 applic 03/14/21 17:50 Lip Therapy Vaseline TP Q2HR PRN Dry Lips Propofol 1,000 mg in 100 mls @ 4.123 mls/hr 03/15/21 11:00 03/24/21 16:40 Diprivan 10 Mg/Ml IV 25 mcg/kg/min TITR INESSA 20.616 mls/hr Administration Protocol 5 MCG/KG/MIN Fentanyl Citrate 2,000 mcg in 100 mls @ 6.872 mls/hr 03/15/21 11:00 03/24/21 12:50 Fentanyl Drip Premix IV 2 mcg/kg/hr TITR INESSA 13.744 mls/hr Administration Protocol 1 MCG/KG/HR Sodium Chloride 500 mls @ 1 mls/hr 03/16/21 17:19 Nacl 0.9% 500 Ml IV DIRECT PRN ARTERIAL LINE FLUSH Vasopressin 20 unit/ Sodium 101 mls @ 9.09 mls/hr 03/21/21 16:00 03/24/21 08:10 Chloride IV 0 units/min TITR INESSA 0 mls/hr Titration Protocol 0.03 UNITS/MIN Sodium Chloride 100 mls @ 999 mls/hr 03/21/21 20:23 Nacl 0.9% IV KARLOS PRN Hypotension Cefazolin Sodium 2 gm/ Sodium 100 mls @ 200 mls/hr 03/22/21 19:00 03/23/21 18:04 Chloride IV 03/26/21 19:29 200 mls/hr Q24H INESSA Administration Protocol NORepinephrine/NS 8 MG-250 ML 8 mg in 250 mls @ 3.75 mls/hr 03/23/21 11:00 03/24/21 14:31 Norepinephrine/Ns 8 Mg-250 Ml (Double Conc) IV 0 mcg/min TITRATE INESSA 0 mls/hr Titration Protocol 2 MCG/MIN Insulin Human Lispro 0 unit 03/14/21 12:00 03/24/21 17:00 Insulin Lispro 100 Unit/Ml SUB-Q Not Given Q6HR [facility] Protocol Lorazepam 1 mg 03/13/21 19:40 03/18/21 14:11 Lorazepam 2 Mg/Ml Vial IV 1 mg Q4H PRN Administration Anxiety Metoclopramide HCl 5 mg 03/21/21 16:00 03/24/21 16:41 Metoclopramide 10 Mg/2 Ml Inj IV 5 mg Q6H INESSA Administration Multi-Ingred Cream/Lotion/Oil/Oint 1 applic 03/14/21 17:50 Mineral Oil/Petrolatum, White Ophth Oint 3.5 Gm OU Q4HR PRN Dry Eye(s) Ondansetron HCl 4 mg 03/13/21 19:30 03/21/21 12:05 Ondansetron 4 Mg/2 Ml Inj IV 4 mg Q8H PRN Administration Nausea And Vomiting Senna/Docusate Sodium 1 tab 03/14/21 22:00 03/24/21 10:42 Sennosides/Docusate Sodium 8.6/50 Mg Tab FEEDTUBE 1 tab BID INESSA Administration Simple Syrup 15 ml 03/15/21 11:42 Simple Syrup 15 Ml FEEDTUBE PRN PRN Hypoglycemia Simple Syrup 30 ml 03/15/21 11:42 Simple Syrup 15 Ml FEEDTUBE PRN PRN Hypoglycemia Sodium Bicarbonate 325 mg 03/15/21 11:42 03/21/21 17:21 Sodium Bicarbonate 325 Mg Tab FEEDTUBE 325 mg PRN PRN Administration For Clogged Feeding Tube Sodium Chloride 10 ml 03/13/21 22:00 03/24/21 10:43 Sodium Chloride 0.9% 10 Ml Flush Syringe IV 10 ml BID INESSA Administration Sodium Chloride 10 ml 03/13/21 19:30 Sodium Chloride 0.9% 10 Ml Flush Syringe IV PRN PRN LINE FLUSH Zinc Sulfate 220 mg 03/14/21 22:00 03/24/21 10:42 Zinc Sulfate 220 Mg Cap PO 220 mg BID INESSA Administration Nutrition/Malnutrition Assess - Dietary Evaluation Nutrition/Malnutrition Findings: Nutrition Notes Start: 03/15/21 11:06 Freq: Status: Active Protocol: Document 03/23/21 17:05 GB (Rec: 03/23/21 17:20 GB [email or web address]) Nutrition Notes Initial or Follow up Reassessment Current Diagnosis Respiratory Failure Other Pertinent Diagnosis SOB. PMHx: asthma, morbid obesity, crohn's disease Current Diet TF: Nepro start rate 10ml ( goal 44ml/hr) Labs/Tests 03/23: BUN 82, creatinine 9.1, K 5.2, P 10.8, Mg 3.5, Tg 381 A1c 6.3 Pertinent Medications Vit C, D5(PRN), Fentanyl Citrate, Propofol 20.616ml/hr (544kcal), vassopressin/NaCl, Zn Sulfate Height 5 ft 5 in Weight 137.438 kg [place] Body Weight (kg) 56.81 BMI 50.4 Weight change and time frame Unable to see weights recorded by RN on RN flow sheet. No weights have transferred to I/O summary. Subjective/Other Information Pt is intubated/sedated - continues BM: 03/23: diarrhea, incontinent, rectal tube placed MD note 03/23: plan for HD RN note: TF to start at 10ml/ hr continues. Increase as tolerated. TF currently at 20ml/hr advancing as tolerated. Percent of energy/protein needs met: TF at goal will meet 75% or greater of minimal EEN Burn Absent Trauma Absent GI Symptoms Diarrhea Difficulty In Swallowing Food Allergy No Skin Integrity/Comment No complications reported Current % PO Other Minimum of two criteria No #1 Nutrition Diagnosis Swallowing difficulty Comments: 03/17: intubation/sedation/TF continues 03/19: intubation/sedation/TF continues 03/23: intubation/sedation/TF continues Etiology SOB, respiratory failure As Evidenced by Signs and Symptoms intubated/sedated (03/14) Diagnosis Progress(for reassessment Continues documentation) Is patient on ventilator? Yes Is Patient Ambulatory and/or Out of Bed No REE-([facility]-confined to bed) 2515.536 Kcal/Kg value to use for calculation 15 Approximate Energy Requirements Using 2 kcal/Kg Calculation Used for Recommendations Kcal/kg Additional Notes Protein 0.6g/kg or greater @ 137g or greater Fluids: 1ml/kcal or per MD Post weight in I/O flow sheet Nutrition Intervention Change Diet Order: NPO Nutrition Support: 03/19: Nepro @ 44ml/hr (10ml/hr slowly advancing to goal as tolerated) Flush: 155ml/4hr Total free H2O/day: TF@goal + flush = 1700ml Kcal 1,900 Protein (gm) 86 Carbohydrates (gm) 170 Fat (gm) 101 Fluid (mL) 767 Fiber (gm) 13 % RDI: 100kcal/104pro Goal #1 TF started and tolerated by f/ u 03/17 met, changing to nepro 03/19: nepro, post vomiting event, TF restarted @10ml advancing as tolerated. 03/23: TF at 20ml/hr. Advancing as tolerated Goal #2 TF at goal by f/u 03/19: restarted at 10ml/hr advancing to goal. Currently at 20ml/hr. 03/23: remaining at 20ml/hr advancing as tolerated. Follow-Up By: 03/26/21 Additional Comments f/u: TF tolerance, vent status
--- NOTE | 2021-03-24 13:37 | Progress Note ---
Assessment and Plan Acute hypoxemic respiratory failure Acute asthma exacerbation Morbid obesity Crohn's disease Metabolic acidosis Acute kidney injury Coronavirus infection Pneumonia (CAP) Oropharyngeal dysphagia Obesity, if not mentioned above - ciprodex eye drops qid X 3-5 days - repeat ABG at 9 pm - follow HIT assay - continue Apixaban for VTE prophylaxis - advance diet to goal rate as tolerated - nephrology input appreciated; HD/UF for toxin and volume clearance - continue care as below otherwise; - HD/UF sessions per nephrology prescription - vasopressors for target MAP > 65 mmHg - continue Daily SAT and SBT assessment as tolerated - continue to wean supplemental oxygen for target O2 sat's > 90% acutely - VAP bundle addressed - continue lung protective strategies - continue bronchodilators with pulmonary hygiene per RT - wean per pulmonary driven protocols otherwise - continue accuchecks with glycemic control per SSI (While critically ill target blood glucose of 140-180 mg/dL; avoid hypoglycemia) - sedation prn for target RASS 0 to -1 - avoid nephrotoxins, renally dose all medications - continue to avoid benzodiazepine's, reduce the possibility of delirium - AB's per ID rec's - prn analgesia per CPOT score - Maintenance of sleep-wake cycle, avoid delirium - continue enteral nutritional support at goal rate as tolerated - G.I. & VTE prophylaxis - PT/OT/ROM exercises - continue mobility protocols for pressure ulcer prophylaxis - Monitor hemodynamics closely - continue other care per attending / other consultants - discharge planning ongoing concurrently COVID SPECIFIC INTERVENTIONS - Actemra ordered if available - Remdesivir as per ID/Pulmonary developed protocols (not a candidate) - continue systemic steroids for severe COVID-19 infection empirically - follow repeat COVID tests results - zinc and vitamin C supplementation - Monitor inflammatory markers per facility protocol - ferritin, Ddimer, CRP - therapeutic anticoagulation per system Protocol based on d-dimer and clinical considerations (VTE prophylaxis) - Continue contact and airborne isolation .... Re-evaluate in am & prn CONDITION: CRITICAL PROGNOSIS: GUARDED CODE STATUS: FULL CODE The high probability of a clinically significant, sudden or life-threatening deterioration of the [respiratory, cardiovascular, renal & neurologic] system(s) required my full and direct attention, intervention and personal management. The aggregate critical care time was [37] minutes without overlap. Time includes spent on; [x] Data Review and interpretation [x] Patient assessment and monitoring of vital signs [x] Documentation [x] Medication orders and management Subjective Date of service: 03/24/21 Principal diagnosis: Ac hypoxemic resp failure; AE-Asthma; SAI; Crohn's; COVID- 19; Pneumonia Interval history: Patient is seen today for: Acute hypoxemic respiratory failure; AE-Asthma; SAI; Crohn's disease; COVID-19 infection; Pneumonia (CAP) Seen and examined at bedside; 24hour events reviewed; nursing and respiratory care staff consulted; no adverse overnight events reported to me; resting in bed; both eyes have developed severe likely subconjuctival hemorrhage; no emesis reporrted and to advance tube feeds; oxygenation a little better; remains with acidosis but improved from last night Objective Vital Signs - 12hr 03/24/21 03/24/21 03/24/21 01:45 02:00 02:16 Temperature Pulse Rate 84 90 93 H Pulse Rate [ 92 H Anterior Bilateral Throughout] Pulse Rate [ From Monitor] Respiratory 24 22 20 Rate Respiratory 24 Rate [Anterior Bilateral Throughout] Blood Pressure 121/52 139/72 150/77 O2 Sat by Pulse 100 100 100 Oximetry O2 Sat by Pulse Oximetry [ Anterior Bilateral Throughout] O2 Sat by Pulse Oximetry [ Bilateral] 03/24/21 03/24/21 03/24/21 02:30 02:45 03:00 Temperature Pulse Rate 89 87 82 Pulse Rate [ Anterior Bilateral Throughout] Pulse Rate [ From Monitor] Respiratory 24 24 24 Rate Respiratory Rate [Anterior Bilateral Throughout] Blood Pressure 147/72 145/64 128/52 O2 Sat by Pulse 100 98 98 Oximetry O2 Sat by Pulse Oximetry [ Anterior Bilateral Throughout] O2 Sat by Pulse Oximetry [ Bilateral] 03/24/21 03/24/21 03/24/21 03:15 03:30 03:45 Temperature Pulse Rate 82 82 92 H Pulse Rate [ Anterior Bilateral Throughout] Pulse Rate [ From Monitor] Respiratory 24 24 12 Rate Respiratory Rate [Anterior Bilateral Throughout] Blood Pressure 128/49 122/47 141/70 O2 Sat by Pulse 96 99 100 Oximetry O2 Sat by Pulse Oximetry [ Anterior Bilateral Throughout] O2 Sat by Pulse Oximetry [ Bilateral] 03/24/21 03/24/21 03/24/21 03:52 03:55 04:00 Temperature 96.7 F L Pulse Rate 93 H 90 Pulse Rate [ Anterior Bilateral Throughout] Pulse Rate [ 91 H From Monitor] Respiratory 17 Rate Respiratory Rate [Anterior Bilateral Throughout] Blood Pressure 141/70 137/75 O2 Sat by Pulse 99 100 Oximetry O2 Sat by Pulse Oximetry [ Anterior Bilateral Throughout] O2 Sat by Pulse Oximetry [ Bilateral] 03/24/21 03/24/21 03/24/21 04:15 04:30 04:45 Temperature Pulse Rate 89 90 92 H Pulse Rate [ Anterior Bilateral Throughout] Pulse Rate [ From Monitor] Respiratory 24 24 24 Rate Respiratory Rate [Anterior Bilateral Throughout] Blood Pressure 149/66 148/70 135/58 O2 Sat by Pulse 100 100 100 Oximetry O2 Sat by Pulse Oximetry [ Anterior Bilateral Throughout] O2 Sat by Pulse Oximetry [ Bilateral] 03/24/21 03/24/21 03/24/21 05:00 05:16 05:30 Temperature Pulse Rate 87 85 85 Pulse Rate [ Anterior Bilateral Throughout] Pulse Rate [ From Monitor] Respiratory 24 24 24 Rate Respiratory Rate [Anterior Bilateral Throughout] Blood Pressure 126/46 113/43 117/44 O2 Sat by Pulse 100 100 100 Oximetry O2 Sat by Pulse Oximetry [ Anterior Bilateral Throughout] O2 Sat by Pulse Oximetry [ Bilateral] 03/24/21 03/24/21 03/24/21 05:45 06:00 06:15 Temperature Pulse Rate 84 82 82 Pulse Rate [ Anterior Bilateral Throughout] Pulse Rate [ From Monitor] Respiratory 24 10 L 9 L Rate Respiratory Rate [Anterior Bilateral Throughout] Blood Pressure 121/49 118/52 118/47 O2 Sat by Pulse 100 100 100 Oximetry O2 Sat by Pulse Oximetry [ Anterior Bilateral Throughout] O2 Sat by Pulse Oximetry [ Bilateral] 03/24/21 03/24/21 03/24/21 06:30 06:45 07:00 Temperature Pulse Rate 81 81 81 Pulse Rate [ Anterior Bilateral Throughout] Pulse Rate [ From Monitor] Respiratory 24 24 24 Rate Respiratory Rate [Anterior Bilateral Throughout] Blood Pressure 116/46 112/41 114/41 O2 Sat by Pulse 100 100 99 Oximetry O2 Sat by Pulse Oximetry [ Anterior Bilateral Throughout] O2 Sat by Pulse Oximetry [ Bilateral] 03/24/21 03/24/21 03/24/21 07:15 07:30 07:45 Temperature Pulse Rate 82 81 83 Pulse Rate [ Anterior Bilateral Throughout] Pulse Rate [ From Monitor] Respiratory 24 22 24 Rate Respiratory Rate [Anterior Bilateral Throughout] Blood Pressure 118/43 116/48 122/49 O2 Sat by Pulse 98 100 100 Oximetry O2 Sat by Pulse Oximetry [ Anterior Bilateral Throughout] O2 Sat by Pulse Oximetry [ Bilateral] 03/24/21 03/24/21 03/24/21 08:00 08:15 08:16 Temperature Pulse Rate 84 84 83 Pulse Rate [ Anterior Bilateral Throughout] Pulse Rate [ 94 H From Monitor] Respiratory 24 24 Rate Respiratory Rate [Anterior Bilateral Throughout] Blood Pressure 107/40 109/41 109/41 O2 Sat by Pulse 100 100 100 Oximetry O2 Sat by Pulse Oximetry [ Anterior Bilateral Throughout] O2 Sat by Pulse Oximetry [ Bilateral] 03/24/21 03/24/21 03/24/21 08:18 08:30 08:46 Temperature Pulse Rate 103 H 102 H Pulse Rate [ 90 Anterior Bilateral Throughout] Pulse Rate [ From Monitor] Respiratory 24 24 Rate Respiratory 24 Rate [Anterior Bilateral Throughout] Blood Pressure 132/66 139/65 O2 Sat by Pulse 100 100 Oximetry O2 Sat by Pulse Oximetry [ Anterior Bilateral Throughout] O2 Sat by Pulse Oximetry [ Bilateral] 03/24/21 03/24/21 03/24/21 09:00 09:15 09:22 Temperature 97.0 F L Pulse Rate 99 H 97 H 94 H Pulse Rate [ Anterior Bilateral Throughout] Pulse Rate [ From Monitor] Respiratory 18 24 Rate Respiratory Rate [Anterior Bilateral Throughout] Blood Pressure 130/52 120/46 128/52 O2 Sat by Pulse 100 100 Oximetry O2 Sat by Pulse 100 Oximetry [ Anterior Bilateral Throughout] O2 Sat by Pulse 100 Oximetry [ Bilateral] 03/24/21 03/24/21 03/24/21 09:30 09:45 10:00 Temperature Pulse Rate 91 H 93 H 91 H Pulse Rate [ Anterior Bilateral Throughout] Pulse Rate [ From Monitor] Respiratory 24 20 24 Rate Respiratory Rate [Anterior Bilateral Throughout] Blood Pressure 110/42 131/65 137/71 O2 Sat by Pulse 100 100 100 Oximetry O2 Sat by Pulse Oximetry [ Anterior Bilateral Throughout] O2 Sat by Pulse Oximetry [ Bilateral] 03/24/21 03/24/21 03/24/21 10:16 10:30 10:45 Temperature Pulse Rate 79 85 89 Pulse Rate [ Anterior Bilateral Throughout] Pulse Rate [ From Monitor] Respiratory 18 20 24 Rate Respiratory Rate [Anterior Bilateral Throughout] Blood Pressure 128/49 129/66 142/65 O2 Sat by Pulse 100 100 100 Oximetry O2 Sat by Pulse Oximetry [ Anterior Bilateral Throughout] O2 Sat by Pulse Oximetry [ Bilateral] 11/10/21 11:00 Temperature Pulse Rate 83 Pulse Rate [ Anterior Bilateral Throughout] Pulse Rate [ From Monitor] Respiratory 24 Rate Respiratory Rate [Anterior Bilateral Throughout] Blood Pressure 142/65 O2 Sat by Pulse 100 Oximetry O2 Sat by Pulse Oximetry [ Anterior Bilateral Throughout] O2 Sat by Pulse Oximetry [ Bilateral] Constitutional: appears uncomfortable, other (morbidly obese female with mild ventilator dyssynchrony) Eyes: non-icteric, other (+ subconjunctival erythema / hemorrhage) ENT: oropharynx moist, other (ETT 25 cm BALJINDER) Neck: supple, no lymphadenopathy, no JVD, other (large circumference) Effort: mildly labored Ascultation: Bilateral: diminished breath sounds, rhonchi Percussion: Bilateral: not dull Cardiovascular: regular rate and rhythm Gastrointestinal: normoactive bowel sounds, soft, non-tender, non-distended (protuberant) Integumentary: normal Extremities: no cyanosis, no edema, pulses normal, no ischemia or petechiae Neurologic: non-focal exam (grossly), pupils equal and round, CN II-XII normal, motor strength normal and, other (moves all extremities spontaneously) Psychiatric: other (unasble to assess) CBC and BMP: 03/24/21 04:00 03/24/21 04:00 ABG, PT/INR, D-dimer: ABG ABG pH 7.190 (7.320-7.450) L 03/23/21 08:44 POC ABG pCO2 57.9 mmHg (32.0-48.0) H 03/23/21 08:44 ABG pCO2 67.1 mm Hg 03/22/21 21:25 POC ABG pO2 79.2 mmHg (83-108) L 03/23/21 08:44 ABG pO2 97.9 mm Hg (80.0-90.0) H 03/22/21 21:25 POC ABG HCO3 21.6 03/23/21 08:44 ABG O2 Saturation 93.0 (0-100) 03/23/21 08:44 PT/INR, D-dimer PT 15.8 Sec. (12.2-14.9) H 03/22/21 13:40 INR 1.14 (0.87-1.13) H 03/22/21 13:40 D-Dimer > 29835 ng/mlDDU (0-234) H 03/22/21 13:40 Abnormal lab findings: Abnormal Labs 03/13/21 03/13/21 03/13/21 13:26 13:26 15:40 WBC RBC Hgb Hct MCH 27 L RDW 17.0 H Plt Count Lymph % (Auto) [place] # (Auto) Seg Neutrophils % Seg Neutrophils # PT INR D-Dimer ABG pH POC ABG pCO2 POC ABG pO2 ABG pO2 ABG HCO3 ABG O2 Saturation ABG Base Excess ABG Hemoglobin ABG Oxyhemoglobin ABG Sodium ABG Potassium ABG Glucose Oxyhemoglobin Carboxyhemoglobin Sodium 136 L Potassium Chloride Carbon Dioxide BUN Creatinine Glucose 125 H 130 H POC Glucose Hemoglobin A1c Calcium Phosphorus Magnesium Lactate Dehydrogenase 235 H C-Reactive Protein 4.30 H Total Protein Albumin Triglycerides Arterial Blood Glucose Arterial Blood Ionized Calcium Urine Creatinine Random Vancomycin Coronavirus (PCR) 03/13/21 03/14/21 03/14/21 21:33 03:35 06:21 WBC 20.0 H RBC Hgb Hct MCH 27 L RDW 17.5 H Plt Count Lymph % (Auto) 7.8 L [place] # (Auto) 1.3 H Seg Neutrophils % 85.4 H Seg Neutrophils # 17.1 H PT INR D-Dimer ABG pH 7.323 L 7.234 L POC ABG pCO2 POC ABG pO2 ABG pO2 69.8 L ABG HCO3 ABG O2 Saturation 92.9 L 94.9 L ABG Base Excess -3.3 L -5.4 L ABG Hemoglobin ABG Oxyhemoglobin ABG Sodium ABG Potassium ABG Glucose Oxyhemoglobin 91.2 L 93.2 L Carboxyhemoglobin Sodium Potassium Chloride Carbon Dioxide BUN Creatinine Glucose POC Glucose Hemoglobin A1c Calcium Phosphorus Magnesium Lactate Dehydrogenase C-Reactive Protein Total Protein Albumin Triglycerides Arterial Blood Glucose Arterial Blood Ionized Calcium Urine Creatinine Random Vancomycin Coronavirus (PCR) 03/14/21 03/14/21 03/14/21 06:21 07:47 11:21 WBC RBC Hgb Hct MCH RDW Plt Count Lymph % (Auto) [place] # (Auto) Seg Neutrophils % Seg Neutrophils # PT INR D-Dimer ABG pH POC ABG pCO2 POC ABG pO2 ABG pO2 ABG HCO3 ABG O2 Saturation ABG Base Excess ABG Hemoglobin ABG Oxyhemoglobin ABG Sodium ABG Potassium ABG Glucose Oxyhemoglobin Carboxyhemoglobin Sodium 136 L 136 L Potassium 6.2 H* D 5.4 H Chloride Carbon Dioxide 21 L 21 L BUN Creatinine 1.5 H D 1.8 H Glucose 144 H 141 H POC Glucose 147 H Hemoglobin A1c Calcium Phosphorus Magnesium Lactate Dehydrogenase C-Reactive Protein Total Protein 8.7 H 9.2 H Albumin 3.8 L Triglycerides Arterial Blood Glucose Arterial Blood Ionized Calcium Urine Creatinine Random Vancomycin Coronavirus (PCR) 03/14/21 03/14/21 03/14/21 17:29 17:50 18:35 WBC RBC Hgb Hct MCH RDW Plt Count Lymph % (Auto) [place] # (Auto) Seg Neutrophils % Seg Neutrophils # PT INR D-Dimer ABG pH POC ABG pCO2 POC ABG pO2 ABG pO2 ABG HCO3 ABG O2 Saturation ABG Base Excess ABG Hemoglobin ABG Oxyhemoglobin ABG Sodium ABG Potassium ABG Glucose Oxyhemoglobin Carboxyhemoglobin Sodium 135 L Potassium 6.4 H* Chloride Carbon Dioxide 15 L BUN 26 H Creatinine 3.4 H D Glucose 165 H POC Glucose 209 H Hemoglobin A1c Calcium Phosphorus Magnesium Lactate Dehydrogenase C-Reactive Protein Total Protein Albumin Triglycerides Arterial Blood Glucose Arterial Blood Ionized Calcium Urine Creatinine 40.1 H Random Vancomycin Coronavirus (PCR) 03/14/21 03/14/21 03/14/21 18:46 22:23 23:52 WBC RBC Hgb Hct MCH RDW Plt Count Lymph % (Auto) [place] # (Auto) Seg Neutrophils % Seg Neutrophils # PT INR D-Dimer ABG pH 7.270 L POC ABG pCO2 POC ABG pO2 63.4 L ABG pO2 ABG HCO3 ABG O2 Saturation ABG Base Excess ABG Hemoglobin ABG Oxyhemoglobin 90.2 L ABG Sodium 134.9 L ABG Potassium 5.3 H ABG Glucose 134 H Oxyhemoglobin Carboxyhemoglobin Sodium 136 L Potassium 5.2 H Chloride Carbon Dioxide 20 L BUN 29 H Creatinine 3.6 H Glucose 236 H POC Glucose 128 H Hemoglobin A1c Calcium Phosphorus Magnesium Lactate Dehydrogenase C-Reactive Protein Total Protein Albumin 3.2 L Triglycerides Arterial Blood Glucose 134 H Arterial Blood Ionized Calcium Urine Creatinine Random Vancomycin Coronavirus (PCR) 03/14/21 03/15/21 03/15/21 Unknown 05:00 05:09 WBC 22.5 H RBC Hgb Hct MCH 27 L RDW 17.6 H Plt Count Lymph % (Auto) [place] # (Auto) Seg Neutrophils % Seg Neutrophils # PT INR D-Dimer ABG pH POC ABG pCO2 POC ABG pO2 ABG pO2 ABG HCO3 ABG O2 Saturation ABG Base Excess ABG Hemoglobin ABG Oxyhemoglobin ABG Sodium ABG Potassium ABG Glucose Oxyhemoglobin Carboxyhemoglobin Sodium Potassium Chloride Carbon Dioxide BUN Creatinine Glucose POC Glucose 116 H Hemoglobin A1c Calcium Phosphorus Magnesium Lactate Dehydrogenase C-Reactive Protein Total Protein Albumin Triglycerides Arterial Blood Glucose Arterial Blood Ionized Calcium Urine Creatinine Random Vancomycin Coronavirus (PCR) Positive A 03/15/21 03/15/21 03/15/21 05:09 05:09 05:09 WBC RBC Hgb Hct MCH RDW Plt Count Lymph % (Auto) [place] # (Auto) Seg Neutrophils % Seg Neutrophils # PT INR D-Dimer ABG pH POC ABG pCO2 POC ABG pO2 ABG pO2 ABG HCO3 ABG O2 Saturation ABG Base Excess ABG Hemoglobin ABG Oxyhemoglobin ABG Sodium ABG Potassium ABG Glucose Oxyhemoglobin Carboxyhemoglobin Sodium 136 L Potassium 6.5 H* D Chloride Carbon Dioxide 17 L BUN 41 H Creatinine 5.3 H Glucose 128 H POC Glucose Hemoglobin A1c 6.3 H Calcium Phosphorus Magnesium Lactate Dehydrogenase C-Reactive Protein 12.10 H Total Protein Albumin 3.1 L Triglycerides Arterial Blood Glucose Arterial Blood Ionized Calcium Urine Creatinine Random Vancomycin Coronavirus (PCR) 03/15/21 03/15/21 03/15/21 10:00 21:50 23:39 WBC RBC Hgb Hct MCH RDW Plt Count Lymph % (Auto) [place] # (Auto) Seg Neutrophils % Seg Neutrophils # PT INR D-Dimer ABG pH 7.098 L POC ABG pCO2 72.7 H POC ABG pO2 ABG pO2 162.5 H ABG HCO3 ABG O2 Saturation ABG Base Excess ABG Hemoglobin 10.1 L ABG Oxyhemoglobin ABG Sodium ABG Potassium 5.7 H ABG Glucose Oxyhemoglobin Carboxyhemoglobin 0.4 L Sodium Potassium Chloride Carbon Dioxide BUN Creatinine Glucose POC Glucose 156 H Hemoglobin A1c Calcium Phosphorus Magnesium Lactate Dehydrogenase C-Reactive Protein Total Protein Albumin Triglycerides Arterial Blood Glucose Arterial Blood Ionized Calcium Urine Creatinine Random Vancomycin Coronavirus (PCR) 03/16/21 03/16/21 03/16/21 05:00 05:30 05:30 WBC 16.7 H RBC 3.59 L Hgb 9.6 L Hct 30.1 L MCH 27 L RDW 17.5 H Plt Count Lymph % (Auto) [place] # (Auto) Seg Neutrophils % Seg Neutrophils # PT INR D-Dimer ABG pH POC ABG pCO2 POC ABG pO2 ABG pO2 ABG HCO3 ABG O2 Saturation ABG Base Excess ABG Hemoglobin ABG Oxyhemoglobin ABG Sodium ABG Potassium ABG Glucose Oxyhemoglobin Carboxyhemoglobin Sodium Potassium Chloride Carbon Dioxide BUN 46 H Creatinine 6.2 H Glucose 131 H POC Glucose Hemoglobin A1c Calcium Phosphorus 6.00 H D Magnesium Lactate Dehydrogenase 318 H C-Reactive Protein 18.60 H Total Protein Albumin 3.0 L Triglycerides Arterial Blood Glucose Arterial Blood Ionized Calcium Urine Creatinine Random Vancomycin Coronavirus (PCR) 03/16/21 03/16/21 03/16/21 05:51 06:37 08:58 WBC RBC Hgb Hct MCH RDW Plt Count Lymph % (Auto) [place] # (Auto) Seg Neutrophils % Seg Neutrophils # PT INR D-Dimer 3041.12 H ABG pH POC ABG pCO2 POC ABG pO2 ABG pO2 141.5 H ABG HCO3 ABG O2 Saturation ABG Base Excess ABG Hemoglobin 9.7 L ABG Oxyhemoglobin ABG Sodium ABG Potassium ABG Glucose Oxyhemoglobin Carboxyhemoglobin Sodium Potassium Chloride Carbon Dioxide BUN Creatinine Glucose POC Glucose 126 H Hemoglobin A1c Calcium Phosphorus Magnesium Lactate Dehydrogenase C-Reactive Protein Total Protein Albumin Triglycerides Arterial Blood Glucose Arterial Blood Ionized Calcium Urine Creatinine Random Vancomycin Coronavirus (PCR) 03/16/21 03/16/21 03/16/21 12:11 16:51 21:00 WBC RBC Hgb Hct MCH RDW Plt Count Lymph % (Auto) [place] # (Auto) Seg Neutrophils % Seg Neutrophils # PT INR D-Dimer ABG pH 7.239 L POC ABG pCO2 61.5 H POC ABG pO2 80.8 L ABG pO2 ABG HCO3 ABG O2 Saturation ABG Base Excess ABG Hemoglobin 11.4 L ABG Oxyhemoglobin 93.5 L ABG Sodium ABG Potassium 5.4 H ABG Glucose 137 H Oxyhemoglobin Carboxyhemoglobin 0.2 L Sodium Potassium Chloride Carbon Dioxide BUN Creatinine Glucose POC Glucose 156 H 133 H Hemoglobin A1c Calcium Phosphorus Magnesium Lactate Dehydrogenase C-Reactive Protein Total Protein Albumin Triglycerides Arterial Blood Glucose 137 H Arterial Blood Ionized Calcium Urine Creatinine Random Vancomycin Coronavirus (PCR) 03/16/21 03/17/21 03/17/21 23:42 05:23 05:23 WBC 18.4 H RBC Hgb Hct MCH 27 L RDW 17.4 H Plt Count Lymph % (Auto) [place] # (Auto) Seg Neutrophils % Seg Neutrophils # PT INR D-Dimer ABG pH POC ABG pCO2 POC ABG pO2 ABG pO2 ABG HCO3 ABG O2 Saturation ABG Base Excess ABG Hemoglobin ABG Oxyhemoglobin ABG Sodium ABG Potassium ABG Glucose Oxyhemoglobin Carboxyhemoglobin Sodium Potassium 5.2 H Chloride Carbon Dioxide 21 L BUN 79 H Creatinine 8.6 H Glucose 124 H POC Glucose 133 H Hemoglobin A1c Calcium Phosphorus Magnesium Lactate Dehydrogenase C-Reactive Protein Total Protein Albumin 3.2 L Triglycerides 285 H Arterial Blood Glucose Arterial Blood Ionized Calcium Urine Creatinine Random Vancomycin Coronavirus (PCR) 03/17/21 03/17/21 03/17/21 05:23 10:48 12:20 WBC RBC Hgb Hct MCH RDW Plt Count Lymph % (Auto) [place] # (Auto) Seg Neutrophils % Seg Neutrophils # PT INR D-Dimer ABG pH 7.294 L POC ABG pCO2 POC ABG pO2 ABG pO2 90.3 H ABG HCO3 ABG O2 Saturation ABG Base Excess ABG Hemoglobin 9.9 L ABG Oxyhemoglobin ABG Sodium ABG Potassium ABG Glucose Oxyhemoglobin Carboxyhemoglobin Sodium Potassium 5.2 H Chloride Carbon Dioxide 21 L BUN 79 H Creatinine 8.4 H Glucose 125 H POC Glucose 171 H Hemoglobin A1c Calcium Phosphorus 9.90 H D Magnesium 2.40 H Lactate Dehydrogenase C-Reactive Protein Total Protein Albumin Triglycerides Arterial Blood Glucose Arterial Blood Ionized Calcium Urine Creatinine Random Vancomycin Coronavirus (PCR) 03/17/21 03/17/21 03/18/21 17:24 21:00 04:30 WBC RBC Hgb Hct MCH RDW Plt Count Lymph % (Auto) [place] # (Auto) Seg Neutrophils % Seg Neutrophils # PT INR D-Dimer 9953.09 H ABG pH 7.310 L POC ABG pCO2 54.5 H POC ABG pO2 62.3 L ABG pO2 ABG HCO3 ABG O2 Saturation ABG Base Excess ABG Hemoglobin 10.2 L ABG Oxyhemoglobin 88.6 L ABG Sodium ABG Potassium 4.7 H ABG Glucose 99 H Oxyhemoglobin Carboxyhemoglobin 0.3 L Sodium Potassium Chloride Carbon Dioxide BUN Creatinine Glucose POC Glucose 121 H Hemoglobin A1c Calcium Phosphorus Magnesium Lactate Dehydrogenase C-Reactive Protein Total Protein Albumin Triglycerides Arterial Blood Glucose 99 H Arterial Blood Ionized Calcium 4.3 L Urine Creatinine Random Vancomycin Coronavirus (PCR) 03/18/21 03/18/21 03/18/21 04:30 04:30 11:34 WBC 12.8 H RBC 3.49 L Hgb 9.4 L Hct 29.3 L MCH 27 L RDW 17.4 H Plt Count Lymph % (Auto) [place] # (Auto) Seg Neutrophils % Seg Neutrophils # PT INR D-Dimer ABG pH POC ABG pCO2 POC ABG pO2 ABG pO2 ABG HCO3 ABG O2 Saturation ABG Base Excess ABG Hemoglobin ABG Oxyhemoglobin ABG Sodium ABG Potassium ABG Glucose Oxyhemoglobin Carboxyhemoglobin Sodium Potassium Chloride Carbon Dioxide BUN 69 H Creatinine 7.3 H Glucose POC Glucose 114 H Hemoglobin A1c Calcium 8.2 L Phosphorus 7.60 H D Magnesium Lactate Dehydrogenase 477 H C-Reactive Protein 6.90 H Total Protein Albumin Triglycerides Arterial Blood Glucose Arterial Blood Ionized Calcium Urine Creatinine Random Vancomycin Coronavirus (PCR) 03/18/21 03/19/21 03/19/21 21:44 04:13 04:13 WBC 13.7 H RBC 3.32 L Hgb 9.0 L Hct 28.1 L MCH 27 L RDW 16.9 H Plt Count Lymph % (Auto) [place] # (Auto) Seg Neutrophils % Seg Neutrophils # PT INR D-Dimer ABG pH 7.290 L POC ABG pCO2 POC ABG pO2 ABG pO2 119.7 H ABG HCO3 28.0 H ABG O2 Saturation ABG Base Excess ABG Hemoglobin 9.6 L ABG Oxyhemoglobin ABG Sodium ABG Potassium ABG Glucose Oxyhemoglobin Carboxyhemoglobin Sodium Potassium Chloride Carbon Dioxide BUN Creatinine Glucose POC Glucose Hemoglobin A1c Calcium Phosphorus Magnesium Lactate Dehydrogenase C-Reactive Protein Total Protein Albumin Triglycerides Arterial Blood Glucose Arterial Blood Ionized Calcium Urine Creatinine Random Vancomycin 43.5 H Coronavirus (PCR) 03/19/21 03/19/21 03/19/21 04:13 05:59 11:40 WBC RBC Hgb Hct MCH RDW Plt Count Lymph % (Auto) [place] # (Auto) Seg Neutrophils % Seg Neutrophils # PT INR D-Dimer ABG pH POC ABG pCO2 POC ABG pO2 ABG pO2 ABG HCO3 ABG O2 Saturation ABG Base Excess ABG Hemoglobin ABG Oxyhemoglobin ABG Sodium ABG Potassium ABG Glucose Oxyhemoglobin Carboxyhemoglobin Sodium Potassium Chloride Carbon Dioxide BUN 55 H Creatinine 7.0 H Glucose POC Glucose 116 H 145 H Hemoglobin A1c Calcium 8.1 L Phosphorus 7.90 H Magnesium Lactate Dehydrogenase C-Reactive Protein Total Protein Albumin Triglycerides Arterial Blood Glucose Arterial Blood Ionized Calcium Urine Creatinine Random Vancomycin Coronavirus (PCR) 03/19/21 03/19/21 03/20/21 17:01 23:41 04:00 WBC 15.6 H RBC 3.55 L Hgb 9.6 L Hct MCH 27 L RDW 16.8 H Plt Count 139 L Lymph % (Auto) [place] # (Auto) Seg Neutrophils % Seg Neutrophils # PT INR D-Dimer ABG pH POC ABG pCO2 POC ABG pO2 ABG pO2 ABG HCO3 ABG O2 Saturation ABG Base Excess ABG Hemoglobin ABG Oxyhemoglobin ABG Sodium ABG Potassium ABG Glucose Oxyhemoglobin Carboxyhemoglobin Sodium Potassium Chloride Carbon Dioxide BUN Creatinine Glucose POC Glucose 111 H 118 H Hemoglobin A1c Calcium Phosphorus Magnesium Lactate Dehydrogenase C-Reactive Protein Total Protein Albumin Triglycerides Arterial Blood Glucose Arterial Blood Ionized Calcium Urine Creatinine Random Vancomycin Coronavirus (PCR) 03/20/21 03/20/21 03/20/21 04:00 04:00 04:37 WBC RBC Hgb Hct MCH RDW Plt Count Lymph % (Auto) [place] # (Auto) Seg Neutrophils % Seg Neutrophils # PT INR D-Dimer > 36139 H ABG pH 7.306 L POC ABG pCO2 POC ABG pO2 ABG pO2 ABG HCO3 27.9 H ABG O2 Saturation ABG Base Excess ABG Hemoglobin 5.2 L ABG Oxyhemoglobin ABG Sodium ABG Potassium ABG Glucose Oxyhemoglobin Carboxyhemoglobin Sodium Potassium 5.2 H Chloride 97.6 L Carbon Dioxide BUN 52 H Creatinine 6.2 H Glucose 104 H POC Glucose Hemoglobin A1c Calcium Phosphorus 8.60 H Magnesium Lactate Dehydrogenase C-Reactive Protein 6.90 H Total Protein Albumin Triglycerides Arterial Blood Glucose Arterial Blood Ionized Calcium Urine Creatinine Random Vancomycin Coronavirus (PCR) 03/20/21 03/20/21 03/20/21 13:50 17:46 17:56 WBC RBC Hgb Hct MCH RDW Plt Count Lymph % (Auto) [place] # (Auto) Seg Neutrophils % Seg Neutrophils # PT INR D-Dimer ABG pH POC ABG pCO2 POC ABG pO2 ABG pO2 ABG HCO3 ABG O2 Saturation ABG Base Excess ABG Hemoglobin ABG Oxyhemoglobin ABG Sodium ABG Potassium ABG Glucose Oxyhemoglobin Carboxyhemoglobin Sodium Potassium Chloride Carbon Dioxide BUN 63 H 43 H Creatinine Glucose POC Glucose 145 H Hemoglobin A1c Calcium Phosphorus Magnesium Lactate Dehydrogenase C-Reactive Protein Total Protein Albumin Triglycerides Arterial Blood Glucose Arterial Blood Ionized Calcium Urine Creatinine Random Vancomycin Coronavirus (PCR) 03/20/21 03/21/21 03/21/21 23:18 06:58 06:58 WBC 14.4 H RBC 3.41 L Hgb 9.5 L Hct 28.6 L MCH RDW 17.4 H Plt Count 107 L Lymph % (Auto) [place] # (Auto) Seg Neutrophils % Seg Neutrophils # PT INR D-Dimer ABG pH POC ABG pCO2 POC ABG pO2 ABG pO2 ABG HCO3 ABG O2 Saturation ABG Base Excess ABG Hemoglobin ABG Oxyhemoglobin ABG Sodium ABG Potassium ABG Glucose Oxyhemoglobin Carboxyhemoglobin Sodium Potassium Chloride Carbon Dioxide BUN 60 H Creatinine 7.7 H Glucose POC Glucose 106 H Hemoglobin A1c Calcium Phosphorus Magnesium Lactate Dehydrogenase C-Reactive Protein Total Protein Albumin Triglycerides Arterial Blood Glucose Arterial Blood Ionized Calcium Urine Creatinine Random Vancomycin Coronavirus (PCR) 03/21/21 03/21/21 03/21/21 11:11 18:04 Unknown WBC RBC Hgb Hct MCH RDW Plt Count Lymph % (Auto) [place] # (Auto) Seg Neutrophils % Seg Neutrophils # PT INR D-Dimer ABG pH 7.270 L POC ABG pCO2 58.7 H POC ABG pO2 76.9 L ABG pO2 ABG HCO3 ABG O2 Saturation ABG Base Excess ABG Hemoglobin 9.9 L ABG Oxyhemoglobin 92.4 L ABG Sodium 135.8 L ABG Potassium 4.6 H ABG Glucose Oxyhemoglobin Carboxyhemoglobin 0.1 L Sodium Potassium Chloride Carbon Dioxide BUN Creatinine Glucose POC Glucose 109 H 141 H Hemoglobin A1c Calcium Phosphorus Magnesium Lactate Dehydrogenase C-Reactive Protein Total Protein Albumin Triglycerides Arterial Blood Glucose Arterial Blood Ionized Calcium 4.5 L Urine Creatinine Random Vancomycin Coronavirus (PCR) 03/22/21 03/22/21 03/22/21 03:09 07:10 10:00 WBC RBC Hgb Hct MCH RDW Plt Count Lymph % (Auto) [place] # (Auto) Seg Neutrophils % Seg Neutrophils # PT INR D-Dimer ABG pH 7.206 L 7.245 L POC ABG pCO2 55.6 H POC ABG pO2 ABG pO2 90.6 H ABG HCO3 ABG O2 Saturation ABG Base Excess -4.4 L ABG Hemoglobin 9.0 L 8.4 L ABG Oxyhemoglobin ABG Sodium 123.4 L ABG Potassium 5.6 H ABG Glucose 106 H Oxyhemoglobin 94.5 L Carboxyhemoglobin 0.1 L Sodium Potassium 5.4 H Chloride 96.8 L Carbon Dioxide BUN 89 H Creatinine 8.7 H Glucose 131 H POC Glucose Hemoglobin A1c Calcium Phosphorus Magnesium Lactate Dehydrogenase C-Reactive Protein 9.40 H Total Protein Albumin Triglycerides Arterial Blood Glucose 106 H Arterial Blood Ionized Calcium Urine Creatinine Random Vancomycin Coronavirus (PCR) 03/22/21 03/22/21 03/22/21 10:00 12:37 13:19 WBC RBC 3.05 L Hgb 8.4 L Hct 25.5 L MCH RDW 17.5 H Plt Count 108 L Lymph % (Auto) [place] # (Auto) Seg Neutrophils % Seg Neutrophils # PT INR D-Dimer ABG pH POC ABG pCO2 POC ABG pO2 ABG pO2 ABG HCO3 ABG O2 Saturation ABG Base Excess ABG Hemoglobin ABG Oxyhemoglobin ABG Sodium ABG Potassium ABG Glucose Oxyhemoglobin Carboxyhemoglobin Sodium Potassium Chloride Carbon Dioxide BUN Creatinine 8.7 H Glucose POC Glucose 140 H Hemoglobin A1c Calcium Phosphorus Magnesium Lactate Dehydrogenase C-Reactive Protein Total Protein Albumin Triglycerides Arterial Blood Glucose Arterial Blood Ionized Calcium Urine Creatinine Random Vancomycin Coronavirus (PCR) 03/22/21 03/22/21 03/22/21 13:40 17:14 18:21 WBC RBC Hgb Hct MCH RDW Plt Count Lymph % (Auto) [place] # (Auto) Seg Neutrophils % Seg Neutrophils # PT 15.8 H INR 1.14 H D-Dimer > 96667 H ABG pH POC ABG pCO2 POC ABG pO2 ABG pO2 ABG HCO3 ABG O2 Saturation ABG Base Excess ABG Hemoglobin ABG Oxyhemoglobin ABG Sodium ABG Potassium ABG Glucose Oxyhemoglobin Carboxyhemoglobin Sodium Potassium Chloride Carbon Dioxide BUN Creatinine Glucose POC Glucose 117 H 112 H Hemoglobin A1c Calcium Phosphorus Magnesium Lactate Dehydrogenase C-Reactive Protein Total Protein Albumin Triglycerides Arterial Blood Glucose Arterial Blood Ionized Calcium Urine Creatinine Random Vancomycin Coronavirus (PCR) 03/22/21 03/22/21 03/23/21 21:25 22:57 04:30 WBC RBC Hgb Hct MCH RDW Plt Count Lymph % (Auto) [place] # (Auto) Seg Neutrophils % Seg Neutrophils # PT INR D-Dimer ABG pH 7.188 L* POC ABG pCO2 POC ABG pO2 ABG pO2 97.9 H ABG HCO3 ABG O2 Saturation ABG Base Excess -3.7 L ABG Hemoglobin 9.2 L ABG Oxyhemoglobin ABG Sodium ABG Potassium ABG Glucose Oxyhemoglobin 94.4 L Carboxyhemoglobin Sodium Potassium Chloride Carbon Dioxide BUN Creatinine Glucose POC Glucose 106 H Hemoglobin A1c Calcium Phosphorus Magnesium Lactate Dehydrogenase C-Reactive Protein Total Protein Albumin Triglycerides 381 H Arterial Blood Glucose Arterial Blood Ionized Calcium Urine Creatinine Random Vancomycin Coronavirus (PCR) 03/23/21 03/23/21 03/23/21 04:30 04:30 05:37 WBC 20.1 H RBC 3.17 L Hgb 8.6 L Hct 27.2 L MCH 27 L RDW 17.4 H Plt Count 118 L Lymph % (Auto) [place] # (Auto) Seg Neutrophils % Seg Neutrophils # PT INR D-Dimer ABG pH POC ABG pCO2 POC ABG pO2 ABG pO2 ABG HCO3 ABG O2 Saturation ABG Base Excess ABG Hemoglobin ABG Oxyhemoglobin ABG Sodium ABG Potassium ABG Glucose Oxyhemoglobin Carboxyhemoglobin Sodium Potassium 5.2 H Chloride 97.1 L Carbon Dioxide 21 L BUN 82 H Creatinine 9.1 H Glucose 109 H POC Glucose 130 H Hemoglobin A1c Calcium Phosphorus 10.80 H Magnesium 3.50 H Lactate Dehydrogenase C-Reactive Protein Total Protein Albumin Triglycerides Arterial Blood Glucose Arterial Blood Ionized Calcium Urine Creatinine Random Vancomycin Coronavirus (PCR) 03/23/21 03/23/21 03/23/21 08:44 11:30 16:09 WBC RBC Hgb Hct MCH RDW Plt Count Lymph % (Auto) [place] # (Auto) Seg Neutrophils % Seg Neutrophils # PT INR D-Dimer ABG pH 7.190 L POC ABG pCO2 57.9 H POC ABG pO2 79.2 L ABG pO2 ABG HCO3 ABG O2 Saturation ABG Base Excess ABG Hemoglobin 11.8 L ABG Oxyhemoglobin 92.3 L ABG Sodium 131.0 L ABG Potassium 5.0 H ABG Glucose 122 H Oxyhemoglobin Carboxyhemoglobin 0.4 L Sodium Potassium Chloride Carbon Dioxide BUN Creatinine Glucose POC Glucose 129 H 148 H Hemoglobin A1c Calcium Phosphorus Magnesium Lactate Dehydrogenase C-Reactive Protein Total Protein Albumin Triglycerides Arterial Blood Glucose 122 H Arterial Blood Ionized Calcium 4.4 L Urine Creatinine Random Vancomycin Coronavirus (PCR) 03/24/21 03/24/21 03/24/21 03:35 04:00 04:00 WBC 17.8 H RBC 2.96 L Hgb 8.1 L Hct 25.0 L MCH 27 L RDW 17.7 H Plt Count 124 L Lymph % (Auto) [place] # (Auto) Seg Neutrophils % Seg Neutrophils # PT INR D-Dimer ABG pH POC ABG pCO2 POC ABG pO2 ABG pO2 ABG HCO3 ABG O2 Saturation ABG Base Excess ABG Hemoglobin ABG Oxyhemoglobin ABG Sodium ABG Potassium ABG Glucose Oxyhemoglobin Carboxyhemoglobin Sodium Potassium Chloride 95.6 L Carbon Dioxide 20 L BUN 108 H Creatinine 10.8 H Glucose 155 H POC Glucose 148 H Hemoglobin A1c Calcium Phosphorus Magnesium Lactate Dehydrogenase C-Reactive Protein Total Protein Albumin Triglycerides Arterial Blood Glucose Arterial Blood Ionized Calcium Urine Creatinine Random Vancomycin Coronavirus (PCR) 03/24/21 03/24/21 06:49 12:29 WBC RBC Hgb Hct MCH RDW Plt Count Lymph % (Auto) [place] # (Auto) Seg Neutrophils % Seg Neutrophils # PT INR D-Dimer ABG pH POC ABG pCO2 POC ABG pO2 ABG pO2 ABG HCO3 ABG O2 Saturation ABG Base Excess ABG Hemoglobin ABG Oxyhemoglobin ABG Sodium ABG Potassium ABG Glucose Oxyhemoglobin Carboxyhemoglobin Sodium Potassium Chloride Carbon Dioxide BUN Creatinine Glucose POC Glucose 136 H 142 H Hemoglobin A1c Calcium Phosphorus Magnesium Lactate Dehydrogenase C-Reactive Protein Total Protein Albumin Triglycerides Arterial Blood Glucose Arterial Blood Ionized Calcium Urine Creatinine Random Vancomycin Coronavirus (PCR) Allied health notes reviewed: nursing
--- NOTE | 2021-03-24 16:30 | Progress Note ---
Assessment and Plan Cultures: SARS CoV2 PCR: Positive 03/13/2021 blood culture: No growth Rest cultures: Staph aureus A/P: 31-year-old female with asthma, morbid obesity, Crohn's disease admitted with cough and shortness of breath: #Bilateral pneumonia: Secondary to COVID-19. Severe disease. CRP has worsened to 12.1. Procalcitonin 0.05. #Acute hypoxic respiratory failure: Requiring BiPAP. #Acute renal failure: Now on HD, may need CRRT #Acute asthma exacerbation #Morbid obesity Recs: -Actemra given 03/15/2021 per pharmacy notes. -prophylactic anticoagulation based on d-dimer per hospital protocol -Continue cefazolin 2g q24h. Planned 8 days. Her size makes dosing difficult. -Follow up new resp/blood cultures -trend d-dimer, CRP every 2-3 days -poor prognosis Champ Ling MD [facility], [place], [facility] O: [phone] F: [phone] Subjective Date of service: 03/24/21 Principal diagnosis: Ac hypoxemic resp failure; AE-Asthma; SAI; Crohn's; COVID- 19; Pneumonia Interval history: Afebrile with low temperatures overnight, white count 17.8. New cultures no growth so far. Objective - Constitutional Vitals: Vital Signs Temp Pulse Resp BP Pulse Ox 97.0 F L 104 H 28 H 124/57 98 03/24/21 09:15 03/24/21 16:15 03/24/21 16:15 03/24/21 16:15 03/24/21 16:15 Temperature -Last 24 Hours Temperature 97.0 F Temperature 96.7 F Temperature 98.2 F Temperature 98.5 F - Labs CBC & Chem 7: 03/24/21 04:00 03/24/21 04:00 Labs: Abnormal lab results 03/23/21 03/24/21 03/24/21 Range/Units 21:00 03:35 04:00 WBC 17.8 H (4.5-11.0) K/mm3 RBC 2.96 L (3.65-5.03) M/mm3 Hgb 8.1 L (10.1-14.3) gm/dl Hct 25.0 L (30.3-42.9) % MCH 27 L (28-32) pg RDW 17.7 H (13.2-15.2) % Plt Count 124 L (140-440) K/mm3 ABG pH 7.223 L (7.320-7.450) POC ABG pCO2 50.3 H (32.0-48.0) mmHg POC ABG pO2 114.4 H (83-108) mmHg ABG Hemoglobin 8.8 L (12.0-17.5) ABG Sodium 130.4 L (136.0-145.0) mmol/L ABG Potassium 5.1 H (3.40-4.50) mmol/L ABG Glucose 126 H (65-95) mg/dL Carboxyhemoglobin 0.2 L (0.5-1.5) Chloride (98-107) mmol/L Carbon Dioxide (22-30) mmol/L BUN (7-17) mg/dL Creatinine (0.6-1.2) mg/dL Glucose (65-100) mg/dL POC Glucose 148 H (70-105) mg/dL Arterial Blood Glucose 126 H (65-95) mg/dL Arterial Blood Ionized Calcium 4.4 L (4.6-5.3) mg/dL 03/24/21 03/24/21 03/24/21 Range/Units 04:00 06:49 12:29 WBC (4.5-11.0) K/mm3 RBC (3.65-5.03) M/mm3 Hgb (10.1-14.3) gm/dl Hct (30.3-42.9) % MCH (28-32) pg RDW (13.2-15.2) % Plt Count (140-440) K/mm3 ABG pH (7.320-7.450) POC ABG pCO2 (32.0-48.0) mmHg POC ABG pO2 (83-108) mmHg ABG Hemoglobin (12.0-17.5) ABG Sodium (136.0-145.0) mmol/L ABG Potassium (3.40-4.50) mmol/L ABG Glucose (65-95) mg/dL Carboxyhemoglobin (0.5-1.5) Chloride 95.6 L (98-107) mmol/L Carbon Dioxide 20 L (22-30) mmol/L BUN 108 H (7-17) mg/dL Creatinine 10.8 H (0.6-1.2) mg/dL Glucose 155 H (65-100) mg/dL POC Glucose 136 H 142 H (70-105) mg/dL Arterial Blood Glucose (65-95) mg/dL Arterial Blood Ionized Calcium (4.6-5.3) mg/dL
[2021-03-24] MEDS: CIPROFLOXACIN/DEXAMETH OTIC SUSP 7.5ML TP SCH ×2 (17:18→21:41)
--- NOTE | 2021-03-24 17:40 | Progress Note ---
Assessment and Plan #Acute kidney injury: dialysis dependent BP is improved this morning, underwent dialysis today, however treatment was cut short by 45 minutes due to repeat clotting Continue HD MWF Assess daily for needs for additional sessions Strict input and output Avoid nephrotoxin # Hyperkalemia, controlled with HD #Respiratory failure Covid 19 infection currently intubated UF as tolerated with HD, will be limited by hemodynamic instability #Hyperphosphatemia to be monitored Dialysis has been initiated #Hyponatremia: Improved with HD #Overall prognosis remains guarded Subjective Date of service: 03/24/21 Principal diagnosis: Ac hypoxemic resp failure; AE-Asthma; SAI; Crohn's; COVID- 19; Pneumonia Interval history: Remains intubated. Nausea stopped 45 minutes earlier than scheduled due to clotting. Objective - Exam Narrative Exam: General: NAD HEENT: Oral mucosa moist Neck: Supple, no JVD Chest: Intubated Heart: RRR, S1 and S2, no pericardial rub Abdomen: Soft, nontender, no renal bruit Extremity: No peripheral cyanosis, edema Neurological: Eyes open but not following commands Dermatology: No skin rash Psych: Unable to assess Musculoskeletal: No joint effusion - Vital Signs Vital signs: Vital Signs - 12hr 03/24/21 03/24/21 03/24/21 05:45 06:00 06:15 Temperature Pulse Rate 84 82 82 Pulse Rate [ Anterior Bilateral Throughout] Pulse Rate [ From Monitor] Respiratory 24 10 L 9 L Rate Respiratory Rate [Anterior Bilateral Throughout] Blood Pressure 121/49 118/52 118/47 O2 Sat by Pulse 100 100 100 Oximetry O2 Sat by Pulse Oximetry [ Anterior Bilateral Throughout] O2 Sat by Pulse Oximetry [ Bilateral] 03/24/21 03/24/21 03/24/21 06:30 06:45 07:00 Temperature Pulse Rate 81 81 81 Pulse Rate [ Anterior Bilateral Throughout] Pulse Rate [ From Monitor] Respiratory 24 24 24 Rate Respiratory Rate [Anterior Bilateral Throughout] Blood Pressure 116/46 112/41 114/41 O2 Sat by Pulse 100 100 99 Oximetry O2 Sat by Pulse Oximetry [ Anterior Bilateral Throughout] O2 Sat by Pulse Oximetry [ Bilateral] 03/24/21 03/24/21 03/24/21 07:15 07:30 07:45 Temperature Pulse Rate 82 81 83 Pulse Rate [ Anterior Bilateral Throughout] Pulse Rate [ From Monitor] Respiratory 24 22 24 Rate Respiratory Rate [Anterior Bilateral Throughout] Blood Pressure 118/43 116/48 122/49 O2 Sat by Pulse 98 100 100 Oximetry O2 Sat by Pulse Oximetry [ Anterior Bilateral Throughout] O2 Sat by Pulse Oximetry [ Bilateral] 03/24/21 03/24/21 03/24/21 08:00 08:15 08:16 Temperature Pulse Rate 84 84 83 Pulse Rate [ Anterior Bilateral Throughout] Pulse Rate [ 94 H From Monitor] Respiratory 24 24 Rate Respiratory Rate [Anterior Bilateral Throughout] Blood Pressure 107/40 109/41 109/41 O2 Sat by Pulse 100 100 100 Oximetry O2 Sat by Pulse Oximetry [ Anterior Bilateral Throughout] O2 Sat by Pulse Oximetry [ Bilateral] 03/24/21 03/24/21 03/24/21 08:18 08:30 08:46 Temperature Pulse Rate 103 H 102 H Pulse Rate [ 90 Anterior Bilateral Throughout] Pulse Rate [ From Monitor] Respiratory 24 24 Rate Respiratory 24 Rate [Anterior Bilateral Throughout] Blood Pressure 132/66 139/65 O2 Sat by Pulse 100 100 Oximetry O2 Sat by Pulse Oximetry [ Anterior Bilateral Throughout] O2 Sat by Pulse Oximetry [ Bilateral] 03/24/21 03/24/21 03/24/21 09:00 09:15 09:22 Temperature 97.0 F L Pulse Rate 99 H 97 H 94 H Pulse Rate [ Anterior Bilateral Throughout] Pulse Rate [ From Monitor] Respiratory 18 24 Rate Respiratory Rate [Anterior Bilateral Throughout] Blood Pressure 130/52 120/46 128/52 O2 Sat by Pulse 100 100 Oximetry O2 Sat by Pulse 100 Oximetry [ Anterior Bilateral Throughout] O2 Sat by Pulse 100 Oximetry [ Bilateral] 03/24/21 03/24/21 03/24/21 09:30 09:45 10:00 Temperature Pulse Rate 91 H 93 H 91 H Pulse Rate [ Anterior Bilateral Throughout] Pulse Rate [ From Monitor] Respiratory 24 20 24 Rate Respiratory Rate [Anterior Bilateral Throughout] Blood Pressure 110/42 131/65 137/71 O2 Sat by Pulse 100 100 100 Oximetry O2 Sat by Pulse Oximetry [ Anterior Bilateral Throughout] O2 Sat by Pulse Oximetry [ Bilateral] 03/24/21 03/24/21 03/24/21 10:16 10:30 10:45 Temperature Pulse Rate 79 85 89 Pulse Rate [ Anterior Bilateral Throughout] Pulse Rate [ From Monitor] Respiratory 18 20 24 Rate Respiratory Rate [Anterior Bilateral Throughout] Blood Pressure 128/49 129/66 142/65 O2 Sat by Pulse 100 100 100 Oximetry O2 Sat by Pulse Oximetry [ Anterior Bilateral Throughout] O2 Sat by Pulse Oximetry [ Bilateral] 03/24/21 03/24/21 03/24/21 11:00 11:15 11:30 Temperature Pulse Rate 83 78 81 Pulse Rate [ Anterior Bilateral Throughout] Pulse Rate [ From Monitor] Respiratory 24 24 22 Rate Respiratory Rate [Anterior Bilateral Throughout] Blood Pressure 142/65 130/60 140/59 O2 Sat by Pulse 100 100 100 Oximetry O2 Sat by Pulse Oximetry [ Anterior Bilateral Throughout] O2 Sat by Pulse Oximetry [ Bilateral] 03/24/21 03/24/21 03/24/21 11:45 12:00 12:15 Temperature Pulse Rate 95 H 95 H 99 H Pulse Rate [ Anterior Bilateral Throughout] Pulse Rate [ 94 H From Monitor] Respiratory 24 18 21 Rate Respiratory Rate [Anterior Bilateral Throughout] Blood Pressure 138/62 141/62 121/59 O2 Sat by Pulse 100 95 100 Oximetry O2 Sat by Pulse Oximetry [ Anterior Bilateral Throughout] O2 Sat by Pulse Oximetry [ Bilateral] 03/24/21 03/24/21 03/24/21 12:30 12:45 13:00 Temperature Pulse Rate 97 H 98 H 93 H Pulse Rate [ Anterior Bilateral Throughout] Pulse Rate [ From Monitor] Respiratory 13 17 26 H Rate Respiratory Rate [Anterior Bilateral Throughout] Blood Pressure 143/73 144/68 131/48 O2 Sat by Pulse 100 100 100 Oximetry O2 Sat by Pulse Oximetry [ Anterior Bilateral Throughout] O2 Sat by Pulse Oximetry [ Bilateral] 03/24/21 03/24/21 03/24/21 13:05 13:16 13:30 Temperature Pulse Rate 97 H 79 96 H Pulse Rate [ Anterior Bilateral Throughout] Pulse Rate [ From Monitor] Respiratory 24 25 H Rate Respiratory Rate [Anterior Bilateral Throughout] Blood Pressure 114/46 119/47 O2 Sat by Pulse 100 100 100 Oximetry O2 Sat by Pulse Oximetry [ Anterior Bilateral Throughout] O2 Sat by Pulse Oximetry [ Bilateral] 03/24/21 03/24/21 03/24/21 13:45 14:00 14:15 Temperature Pulse Rate 95 H 93 H 99 H Pulse Rate [ Anterior Bilateral Throughout] Pulse Rate [ From Monitor] Respiratory 23 20 19 Rate Respiratory Rate [Anterior Bilateral Throughout] Blood Pressure 124/54 128/49 131/51 O2 Sat by Pulse 100 100 100 Oximetry O2 Sat by Pulse Oximetry [ Anterior Bilateral Throughout] O2 Sat by Pulse Oximetry [ Bilateral] 03/24/21 03/24/21 03/24/21 14:30 14:45 15:00 Temperature Pulse Rate 96 H 92 H 94 H Pulse Rate [ Anterior Bilateral Throughout] Pulse Rate [ From Monitor] Respiratory 12 24 11 L Rate Respiratory Rate [Anterior Bilateral Throughout] Blood Pressure 118/55 107/40 113/55 O2 Sat by Pulse 100 100 100 Oximetry O2 Sat by Pulse Oximetry [ Anterior Bilateral Throughout] O2 Sat by Pulse Oximetry [ Bilateral] 03/24/21 03/24/21 03/24/21 15:16 15:30 15:45 Temperature Pulse Rate 95 H 98 H 93 H Pulse Rate [ Anterior Bilateral Throughout] Pulse Rate [ From Monitor] Respiratory 12 21 19 Rate Respiratory Rate [Anterior Bilateral Throughout] Blood Pressure 113/55 136/65 105/46 O2 Sat by Pulse 64 L 100 100 Oximetry O2 Sat by Pulse Oximetry [ Anterior Bilateral Throughout] O2 Sat by Pulse Oximetry [ Bilateral] 03/24/21 03/24/21 03/24/21 16:00 16:07 16:08 Temperature Pulse Rate 82 87 Pulse Rate [ 95 H Anterior Bilateral Throughout] Pulse Rate [ 88 From Monitor] Respiratory 24 Rate Respiratory 24 Rate [Anterior Bilateral Throughout] Blood Pressure 107/39 O2 Sat by Pulse 99 100 Oximetry O2 Sat by Pulse Oximetry [ Anterior Bilateral Throughout] O2 Sat by Pulse Oximetry [ Bilateral] 03/24/21 16:15 Temperature Pulse Rate 104 H Pulse Rate [ Anterior Bilateral Throughout] Pulse Rate [ From Monitor] Respiratory 28 H Rate Respiratory Rate [Anterior Bilateral Throughout] Blood Pressure 124/57 O2 Sat by Pulse 98 Oximetry O2 Sat by Pulse Oximetry [ Anterior Bilateral Throughout] O2 Sat by Pulse Oximetry [ Bilateral] - Lab 03/24/21 04:00 03/24/21 04:00 Most recent lab results ABG pH 7.223 (7.320-7.450) L 03/23/21 21:00 ABG pCO2 67.1 mm Hg 03/22/21 21:25 ABG pO2 97.9 mm Hg (80.0-90.0) H 03/22/21 21:25 ABG HCO3 25.0 mmol/L (20.0-26.0) 03/22/21 21:25 ABG O2 Saturation 97.3 (0-100) 03/23/21 21:00 Calcium 8.6 mg/dL (8.4-10.2) 03/24/21 04:00 Phosphorus 10.80 mg/dL (2.5-4.5) H 03/23/21 04:30 Magnesium 3.50 mg/dL (1.7-2.3) H 03/23/21 04:30 Urine Creatinine 40.1 mg/dL (0.1-20.0) H 03/14/21 17:50 Urine Sodium 124 mmol/L 03/14/21 17:50 Medications & Allergies - Medications Allergies/Adverse Reactions: Allergies acetaminophen [From Percocet] Adverse Reaction (Verified 03/13/21 12:45) Swelling hydrocodone bitartrate [From Vicodin] Adverse Reaction (Verified 03/13/21 12:45) Swelling oxycodone HCl [From Percocet] Adverse Reaction (Verified 03/13/21 12:45) Swelling Home Medications: Home Medications Medication Instructions Recorded Confirmed Last Taken Type Chlorhexidine Mouthwash [Peridex] 15 ml MM BID #1 bottle 10/11/20 03/13/21 Unknown Rx Clindamycin [Clindamycin CAP] 300 mg PO Q8H #21 cap 10/11/20 03/13/21 Unknown Rx Naproxen 500 mg PO Q12H PRN #12 tablet 10/11/20 03/13/21 Unknown Rx Butalb/Acetamin/Caff 50-325-40 1 - 2 tab PO Q6HR PRN #15 tab 12/05/20 03/13/21 Unknown Rx [Fioricet 50-325-40] Famotidine [Pepcid] 20 mg PO BID #30 tablet 12/05/20 03/13/21 Unknown Rx Ketorolac [Toradol] 10 mg PO Q8H PRN #20 tablet 12/05/20 03/13/21 Unknown Rx Ondansetron [Zofran Odt] 4 mg PO Q6HR PRN #20 tab.rapdis 12/05/20 03/13/21 Unknown Rx Albuterol Sulfate [Proair 90 mcg IH Q4HR PRN #2 aer.pow.[email or web address] 01/01/21 03/13/21 Unknown Rx Respiclick] Mupirocin [Bactroban 2% OINT] 1 applic TP BID 7 Days #1 tube 01/01/21 03/13/21 Unknown Rx Triamcinolone Aceton 0.1% (Nf) 1 applic TP BID 14 Days #1 tube 01/01/21 03/13/21 Unknown Rx [Kenalog (NF)] predniSONE [Deltasone] 40 mg PO QDAY #8 tab 01/01/21 03/13/21 Unknown Rx Active Medications: Generic Name Dose Route Start Last Admin Trade Name Freq PRN Reason Stop Dose Admin Acetaminophen 650 mg 03/13/21 19:30 Acetaminophen 325 Mg Tab PO Q4H PRN Pain MILD(1-3)/Fever >100.5/SALAS Albuterol 2.5 mg 03/19/21 00:53 Albuterol 2.5 Mg/3 Ml Nebu IH Q4HRT PRN Shortness Of Breath Albuterol/Ipratropium 1 ampul 03/19/21 08:00 03/24/21 16:08 Ipratropium/Albuterol Sulfate 3 Ml Ampul.Neb IH 1 ampul Q6HRT INESSA Administration Lipase/Protease/Amylase 1 each 03/15/21 11:42 Lipase 10,500/Protease 25,000/Amylase 43,750 (Units) Dr White FEEDTUBE PRN PRN For Clogged Feeding Tube Apixaban 2.5 mg 03/22/21 22:00 03/24/21 10:42 Apixaban 2.5 Mg Tab PO 2.5 mg Q12HR INESSA Administration Protocol Ascorbic Acid 500 mg 03/14/21 22:00 03/24/21 10:41 Ascorbic Acid 500 Mg Tab PO 500 mg BID INESSA Administration Bisacodyl 10 mg 03/22/21 22:00 03/23/21 21:13 Bisacodyl 10 Mg Rect Supp IN Not Given QHS INESSA Ciprofloxacin/Dexamethasone 1 drops 03/24/21 18:00 03/24/21 17:18 Ciprofloxacin/Dexameth Otic Susp 7.5ml TP 03/29/21 17:59 1 drops QID INESSA Administration Dextrose 50 ml 03/14/21 11:02 03/15/21 11:40 Dextrose 50% In Water (25gm) 50 Ml Syringe IV 50 ml Q30MIN PRN Administration Hypoglycemia Protocol Famotidine 10 mg 03/17/21 22:00 03/24/21 10:41 Famotidine 10 Mg Tab PO 10 mg BID INESSA Administration Fentanyl 50 mcg 03/15/21 10:43 Fentanyl 100 Mcg/2 Ml Inj IV Q10MIN PRN ANALGESIA Hydralazine HCl 10 mg 03/15/21 10:10 03/15/21 10:32 Hydralazine 20 Mg/1 Ml Inj IV 10 mg Q4HR PRN Administration Hypertension Hydrophilic Ointment 1 applic 03/14/21 17:50 Lip Therapy Vaseline TP Q2HR PRN Dry Lips Propofol 1,000 mg in 100 mls @ 4.123 mls/hr 03/15/21 11:00 03/24/21 16:40 Diprivan 10 Mg/Ml IV 25 mcg/kg/min TITR INESSA 20.616 mls/hr Administration Protocol 5 MCG/KG/MIN Fentanyl Citrate 2,000 mcg in 100 mls @ 6.872 mls/hr 03/15/21 11:00 03/24/21 12:50 Fentanyl Drip Premix IV 2 mcg/kg/hr TITR INESSA 13.744 mls/hr Administration Protocol 1 MCG/KG/HR Sodium Chloride 500 mls @ 1 mls/hr 03/16/21 17:19 Nacl 0.9% 500 Ml IV DIRECT PRN ARTERIAL LINE FLUSH Vasopressin 20 unit/ Sodium 101 mls @ 9.09 mls/hr 03/21/21 16:00 03/24/21 08:10 Chloride IV 0 units/min TITR INESSA 0 mls/hr Titration Protocol 0.03 UNITS/MIN Sodium Chloride 100 mls @ 999 mls/hr 03/21/21 20:23 Nacl 0.9% IV KARLOS PRN Hypotension Cefazolin Sodium 2 gm/ Sodium 100 mls @ 200 mls/hr 03/22/21 19:00 03/23/21 18:04 Chloride IV 03/26/21 19:29 200 mls/hr Q24H INESSA Administration Protocol NORepinephrine/NS 8 MG-250 ML 8 mg in 250 mls @ 3.75 mls/hr 03/23/21 11:00 03/24/21 14:31 Norepinephrine/Ns 8 Mg-250 Ml (Double Conc) IV 0 mcg/min TITRATE INESSA 0 mls/hr Titration Protocol 2 MCG/MIN Insulin Human Lispro 0 unit 03/14/21 12:00 03/24/21 17:00 Insulin Lispro 100 Unit/Ml SUB-Q Not Given Q6HR INESSA Protocol Lorazepam 1 mg 03/13/21 19:40 03/18/21 14:11 Lorazepam 2 Mg/Ml Vial IV 1 mg Q4H PRN Administration Anxiety Metoclopramide HCl 5 mg 03/21/21 16:00 03/24/21 16:41 Metoclopramide 10 Mg/2 Ml Inj IV 5 mg Q6H INESSA Administration Multi-Ingred Cream/Lotion/Oil/Oint 1 applic 03/14/21 17:50 Mineral Oil/Petrolatum, White Ophth Oint 3.5 Gm OU Q4HR PRN Dry Eye(s) Ondansetron HCl 4 mg 03/13/21 19:30 03/21/21 12:05 Ondansetron 4 Mg/2 Ml Inj IV 4 mg Q8H PRN Administration Nausea And Vomiting Senna/Docusate Sodium 1 tab 03/14/21 22:00 03/24/21 10:42 Sennosides/Docusate Sodium 8.6/50 Mg Tab FEEDTUBE 1 tab BID INESSA Administration Simple Syrup 15 ml 03/15/21 11:42 Simple Syrup 15 Ml FEEDTUBE PRN PRN Hypoglycemia Simple Syrup 30 ml 03/15/21 11:42 Simple Syrup 15 Ml FEEDTUBE PRN PRN Hypoglycemia Sodium Bicarbonate 325 mg 03/15/21 11:42 03/21/21 17:21 Sodium Bicarbonate 325 Mg Tab FEEDTUBE 325 mg PRN PRN Administration For Clogged Feeding Tube Sodium Chloride 10 ml 03/13/21 22:00 03/24/21 10:43 Sodium Chloride 0.9% 10 Ml Flush Syringe IV 10 ml BID INESSA Administration Sodium Chloride 10 ml 03/13/21 19:30 Sodium Chloride 0.9% 10 Ml Flush Syringe IV PRN PRN LINE FLUSH Zinc Sulfate 220 mg 03/14/21 22:00 03/24/21 10:42 Zinc Sulfate 220 Mg Cap PO 220 mg BID INESSA Administration
[2021-03-24 21:57] LABS: ABG Base Excess -1.6 mmol/L (-2.0-3.0); ABG Methemoglobin 0.6 % (0.0-1.5); ABG Oxygen Saturation 90.3 % (95.0-99.0); ABG PCO2 61.9 mm Hg; ABG PH 7.241 pH Units (7.350-7.450); ABG PO2 72.4 mm Hg (80.0-90.0)
[2021-03-25] MEDS: INSULIN LISPRO 100 UNIT/ML SUB-Q SCH ×4 (00:19→23:29)
[2021-03-25] MEDS: fentaNYL DRIP Premix 2,000 MCG/100 ML BAG IV SCH ×3 (03:17→16:31)
[2021-03-25] MEDS: IPRATROPIUM/ALBUTEROL SULFATE 3 ML AMPUL.NEB IH SCH ×4 (05:03→21:04)
[2021-03-25 07:13] LABS: Hematocrit 21.1 % (30.3-42.9); Hemoglobin 6.9 gm/dl (10.1-14.3); Mean Corpuscular HGB Conc 33 % (30-34); Mean Corpuscular Volume 84 fl (79-97); Platelet Count 102 K/mm3 (140-440); Red Blood Count 2.52 M/mm3 (3.65-5.03); Red Cell Distribution Width 17.4 % (13.2-15.2)
[2021-03-25 07:33] LABS: Calcium 8.2 mg/dL (8.4-10.2)
--- NOTE | 2021-03-25 09:47 | Electrocardiograph Report ---
[facility] Test Date: 2021-03-21 Test Time: 09:19:36 Pat Name: LAURA QUINTANILLA Department: Room: A261 1 Gender: F Heel Nail Rasper: GUNJAN : 1990 Requested By: CRISTY PASCUAL Order Number: [id number] Reading MD: Jong Jay Measurements Intervals [place] Rate: 131 P: 76 [place]: 117 QRS: 57 QRSD: 91 T: 152 QT: 283 QTc: 419 Interpretive Statements Sinus tachycardia Repol abnrm suggests ischemia, diffuse leads Compared to ECG 03/15/2021 08:03:44 Early repolarization now present Rate is faster,otherwise no significant change noted. Electronically Signed On 03-25-2021 9:46:45 EST by Jong Jay
[2021-03-25] MEDS: FAMOTIDINE 10 MG TAB PO SCH ×2 (10:16→21:38)
[2021-03-25] MEDS: ASCORBIC ACID 500 MG TAB PO SCH ×2 (10:16→21:38)
[2021-03-25] MEDS: METOCLOPRAMIDE 10 MG/2 ML INJ IV SCH ×3 (10:16→21:50)
[2021-03-25] MEDS: ZINC SULFATE 220 MG CAP PO SCH ×2 (10:16→21:50)
[2021-03-25] MEDS: SENNOSIDES/DOCUSATE SODIUM 8.6/50 MG TAB FEEDTUBE SCH ×2 (10:16→21:51)
[2021-03-25] MEDS: CIPROFLOXACIN/DEXAMETH OTIC SUSP 7.5ML TP SCH ×4 (10:17→21:50)
[2021-03-25] MEDS: APIXABAN 2.5 MG TAB PO SCH (10:17)
[2021-03-25 11:10] LABS: Hematocrit 20.9 % (30.3-42.9); Hemoglobin 6.8 gm/dl (10.1-14.3); Mean Corpuscular HGB Conc 33 % (30-34); Mean Corpuscular Volume 84 fl (79-97); Platelet Count 107 K/mm3 (140-440); Red Blood Count 2.49 M/mm3 (3.65-5.03)
--- NOTE | 2021-03-25 11:44 | Progress Note ---
<ANCELMO GONZALEZ - Last Filed: 03/25/21 16:51> Assessment and Plan Assessment and plan: This is a 31-year-old female with history of asthma, morbid obesity, and Crohn's disease who came in complaining of severe wheezing and shortness of breath for the last 4 days that was not relieved by her home nebs and rescue inhalers. Patient was initially admitted to IMCU on bipap but was subsequently intubated due to severe respiratory distress and was unable to protect her aiway. Patient was found to have acute respiratory failure 2/2 to COVID PNA requiring vent support and SAI. Hospital Course to Date: 03/14/21- Patient is s/p intubation from this morning, sedated on propofol and fentanyl RASS -3 to -4. ETT above the clavicles advanced by 2cc. Continue nebs and IV steroids per [facility]. COVID swab pending. Hyperkalemia improved, X1 dose of kayaxalate ordered. Low BP and low urine output this am, fluid bolus challenge, 500cc of NS bolus given. Continue to monitor electrolytes and renal function, repeat BMP this afternoon. 03/15: Patient's renal function noted to be significantly worse today, patient was hyperkalemic and this was medically treated. Patient initiated on hemodialysis today. Patient disease was consulted today. 03/16: No acute events reported overnight, patient received hemodialysis yesterday. Patient is currently on propofol and fentanyl. 03/17: Patient received hemodialysis today, patient is slightly acidotic on ABG however [facility] is allowing for permissive hypercapnia, tracheal aspirate with Staph aureus and ID is aware. 03/18: Patient is having high residuals today and Reglan was started, patient will receive HD daily per nephrology, correct her change in FiO2 as tolerated. 03/19: HD per nephrology today, antibiotics changed to cefazolin. Patient did not tolerate tube feedings as she had high residuals this morning and they were turned off. Not restarted yet. Updated family at bedside today 03/20: HD today, ddimer noted to be >1000, Tolerating trickle TF. Stat BLE dopplar US 03/21: Patient is not tolerating TF, CXR shows worsening infiltrates, [facility] made c hanges to vent, TF on hold and started on IVF. 03/22/21- Patient remains intubated and on sedation. Persistent vomiting, TF held overnight, no documented BM, on reglan BR added, Shaun citarte & supp. HD today. Plan to restart TF at 10ml/hr, will reevaluate in the am. Persistent thrombocytopenia, Hep on hold, HIT panel ordered, PO eliquis initiated. 03/23/21- Patient remains on the vent and sedated on propofol and fentanyl RASS - 2 to -3. Possible SAT today as tolerated. Patient tolerated trickle feeds overnight, plan to advance TF by 10cc Q8 to 12hrs. Continue current BR and continue reglan for now. Slightr worsening in acidosis from this am, d/w [facility] vent setting adjusted, will repeat ABG at 9pm. 03/24/21- Patient is on the vent and sedated, on fentanyl and propfol. Bilateral subconjunctival hemorrhage with periorbital edema noted this am, pupils are round and reactive, will Cipro/Dex [id number]. Worsening of kidney function from today's labs, plan for HD per Nephro. 03/25/21- Patient remains intubated and on sedatin, RASS 0 to -1, no longer on pressors. Sudden drop in H&H this am, bilateral subconjunctival hemorrhage with no sig change, no signs of any active bleeding. Patient appears neurologically intact, following commands, pupils are round and reactive with + gag and cough, moved all extremities. D/w [facility] patient is too unstable for CT at this time. Eliquis D/Devaughn, 1unit of PRBC ordered. Will continue to trend CBC. Plan for another section of HD today Assessment and Plan #Neuro: Sedated - Intubated and sedated on propofol and fentanyl RASS -1 - Titrate sedation for RASS goal 0 to -1 - Daily SAT and SBT per [facility] - Avoid benzodiazepine's, reduce the possibility of delirium - Prn analgesia for CPOT greater than 3 - Maintenance of sleep-wake cycle - Bilateral wrist restraints in place for safety #Subconjunctival hemorrhage #Periorbital Edema - Acute swelling/edema with subconjunctival hemorrhage noted this am - No report of possible trauma/injury - pupils are round and reactive, no drainage noted - Patient is sedated on fentanyl and propofol RASS -1 to -2, following commands - Possibly due to elevated venous pressure vs coughing - Cipro/Dex was initiated [id number] - Eliquis on hold - Sudden drop in H&H, 1unit of PRBCs ordered - Will continue to monitor #CV:Tachycardia #HTN - ST on the monitor - Back on low dose pressors - Continue blood pressure monitor per protocol - Maintain MAP above 65 - Eliquis on hold - C/f for HIT, HIT panel pending #Acute Respiratory Failure #COVID PNA #RUL PNA #Asthma Exacerbation #Bronchospasm- resolved - 03/13 CXR- possible minimal patchy RUL pneumonia - 03/14 CXR- increasing patchy parenchymal opacities bilaterally - C/f for aspiration while patient was on Bipap - Intubated on 03/14 for airway protection - High Peak pressure post intubation--> bronchospasm - COVID swab positive - Vent setting: PRVC- 60%,12,24,500 - AM ABG noted - Vent adjusted by CCM - CCM consulted, appreciate recommendations - Continue IV Steroids and Nebs per CCM - VAP bundle addressed - Aspiration precaution HOB above 30 - Daily SBT and SAT trials as tolerated - Daily ABG and CXR - Continue SPO2 monitoring for SPO2 goal above 92% #GI: Projectile Vomitting- resolved - Patient on enteral nutrition - TF now at goal - BM this am - 03/22 BR adjusted, X1 dose of mag citrate and Supp - Continue BR: colace and senokot - Continue Pepcid and reglan - PRN entiemetic for N/V #:Acute Kidney Injury most likely ATN #Hyperkalemia- resolved - Initial cr. was 0.8-- up to 10.8 this am - HD was initiated on 03/15 - Patient is oliguric - Last HD on 03/22 - Plan for HD today - Continue HD per Nephro - Strict intake and output - Avoid nephrotoxic medications; Renally dose medications - Monitor and replace electrolytes as needed - Nephro on consult #ID:COVID Pneumonia #RUL PNA #Possible aspiration Pneumonia #Leukocytosis - WBCs downtrending today - Febrile overnight, TMAX 101.4 - COVID swab positive - 03/13 BC x2 no growth to date - 03/14 tracheal aspirate with Staph aureus (ID aware) - Patient received X1 dose of redemsevir, was D/C due to worsen renal function - Received X1 dose actemra - Continue IV Abx per ID - Trend COVID-19 inflammatory markers - Isolation/droplet precautions - On Vitamin C/vitamin D/zinc - Daily CBC monitor - ID on consult #Endo: Hyperglycemia - Hemoglobin A1c 6.3 - Continue SSI Q6hrs - While critically ill target blood glucose of 140-180 - Avoid hypoglycemia The high probability of a clinically significant, sudden or life threatening deterioration of the [multiple] system(s) required my full and direct attention, intervention and personal management. The aggregate critical care time was [60] minutes. This time is in addition to time spent performing reported procedures but includes the following: [x] Data Review and interpretation [x] Patient assessment and monitoring of vital signs [x] Documentation [x] Medication orders and management Disposition Plan: ICU Total Time Spent with Patient (Minutes): 60 History Interval history: Patient is seen and examined at the bedside. Patient remains on the vent and sedated. Patient is off pressors, VENICE overnight Hospitalist Physical - Constitutional Vitals: Temp Pulse Resp BP Pulse Ox 100.3 F H 106 H 26 H 113/39 95 03/25/21 08:00 03/25/21 08:47 03/25/21 08:00 03/25/21 08:47 03/25/21 08:47 General appearance: Present: no acute distress, well-nourished, obese, other (Intubated and sedated) - EENT Eyes: Present: PERRL (Subconjonctival hemorrhage) ENT: hearing intact - Respiratory Respiratory effort: normal Respiratory: bilateral: wheezing - Cardiovascular Rhythm: regular Heart Sounds: Present: S1 & S2 - Extremities Extremities: no ischemia, pulses intact, pulses symmetrical Extremity abnormal: edema - Peripheral Assessment Generalized Edema Type: Non-pitting Edema Degree: 1+ Capillary Refill: < 3 seconds Skin Temperature: Warm Peripheral Pulses: within normal limits - Abdominal General gastrointestinal: soft, non-tender, normal bowel sounds - Integumentary Integumentary: Present: warm, dry - Psychiatric Psychiatric: cooperative - Neurologic Neurologic: moves all extremities - Allied Health Allied health notes reviewed: nursing Results - Labs CBC & Chem 7: 03/25/21 Unknown 03/25/21 05:54 Labs: Laboratory Last Values WBC 12.4 K/mm3 (4.5-11.0) H 03/25/21 Unknown RBC 2.49 M/mm3 (3.65-5.03) L 03/25/21 Unknown Hgb 6.8 gm/dl (10.1-14.3) L 03/25/21 Unknown Hct 20.9 % (30.3-42.9) L 03/25/21 Unknown MCV 84 fl (79-97) 03/25/21 Unknown MCH 27 pg (28-32) L 03/25/21 Unknown MCHC 33 % (30-34) 03/25/21 Unknown RDW 18.0 % (13.2-15.2) H 03/25/21 Unknown Plt Count 107 K/mm3 (140-440) L 03/25/21 Unknown Lymph % (Auto) 7.8 % (13.4-35.0) L 03/14/21 06:21 [place] % (Auto) 6.7 % (0.0-7.3) 03/14/21 06:21 Eos % (Auto) 0.0 % (0.0-4.3) 03/14/21 06:21 Baso % (Auto) 0.1 % (0.0-1.8) 03/14/21 06:21 Lymph # (Auto) 1.6 K/mm3 (1.2-5.4) 03/14/21 06:21 [place] # (Auto) 1.3 K/mm3 (0.0-0.8) H 03/14/21 06:21 Eos # (Auto) 0.0 K/mm3 (0.0-0.4) 03/14/21 06:21 Baso # (Auto) 0.0 K/mm3 (0.0-0.1) 03/14/21 06:21 Seg Neutrophils % 85.4 % (40.0-70.0) H 03/14/21 06:21 Seg Neutrophils # 17.1 K/mm3 (1.8-7.7) H 03/14/21 06:21 PT 15.8 Sec. (12.2-14.9) H 03/22/21 13:40 INR 1.14 (0.87-1.13) H 03/22/21 13:40 APTT 26.8 Sec. (24.2-36.6) 03/22/21 13:40 D-Dimer > 69515 ng/mlDDU (0-234) H 03/22/21 13:40 ABG pH 7.241 pH Units (7.350-7.450) L 03/24/21 21:35 POC ABG pCO2 50.3 mmHg (32.0-48.0) H 03/23/21 21:00 ABG pCO2 61.9 mm Hg 03/24/21 21:35 POC ABG pO2 114.4 mmHg (83-108) H 03/23/21 21:00 ABG pO2 72.4 mm Hg (80.0-90.0) L 03/24/21: POC ABG HCO3 20.3 03/23/21 21: ABG HCO3 26.0 mmol/L (20.0-26.0) 03/24/21: ABG O2 Saturation 90.3 % (95.0-99.0) L 03/24/21: ABG O2 Content 10.0 (0.0-44) 03/24/21:35 POC ABG Base Excess -7.1 03/23/21 21: ABG Base Excess -1.6 mmol/L (-2.0-3.0) 03/24/21:35 ABG Hemoglobin 7.9 gm/dl (12.0-16.0) L 03/24/21:35 ABG Oxyhemoglobin 97.1 (94-98) 03/23/21 21:00 ABG Carboxyhemoglobin 1.5 % (0.0-5.0) 03/24/21: ABG Methemoglobin 0.6 % (0.0-1.5) 03/24/21: ABG Sodium 130.4 mmol/L (136.0-145.0) L 03/23/21 21:00 ABG Potassium 5.1 mmol/L (3.40-4.50) H 03/23/21 21:00 ABG Chloride 100.0 mmol/L (98-107) 03/23/21 21:00 ABG Glucose 126 mg/dL (65-95) H 03/23/21 21:00 Oxyhemoglobin 88.4 % (95.0-99.0) L 03/24/21: Carboxyhemoglobin 0.2 (0.5-1.5) L 03/23/21 21:00 FiO2 70 % 11/10/21 21:35 FiO2 % 80.0 03/23/21 21:00 Sodium 137 mmol/L (137-145) 03/25/21 05:54 Potassium 3.7 mmol/L (3.6-5.0) 03/25/21 05:54 Chloride 96.7 mmol/L (98-107) L 03/25/21 05:54 Carbon Dioxide 22 mmol/L (22-30) 03/25/21 05:54 Anion Gap 22 mmol/L 03/25/21 05:54 BUN 81 mg/dL (7-17) H 03/25/21 05:54 Creatinine 8.1 mg/dL (0.6-1.2) H 03/25/21 05:54 Estimated GFR 7 ml/min 03/25/21 05:54 BUN/Creatinine Ratio 10 % 03/25/21 05:54 Glucose 116 mg/dL (65-100) H 03/25/21 05:54 POC Glucose 121 mg/dL (70-105) H 03/25/21 05:51 Hemoglobin A1c 6.3 % (4-6) H 03/15/21 05:09 Lactic Acid 2.00 mmol/L (0.7-2.0) 03/14/21 18:47 Calcium 8.2 mg/dL (8.4-10.2) L 03/25/21 05:54 Phosphorus 10.80 mg/dL (2.5-4.5) H 03/23/21 04:30 Magnesium 3.50 mg/dL (1.7-2.3) H 03/23/21 04:30 Ferritin 151.6 ng/mL (10.0-200.0) 03/18/21 04:30 Total Bilirubin 0.20 mg/dL (0.1-1.2) 03/17/21 05:23 AST 35 units/L (5-40) 03/17/21 05:23 ALT 24 units/L (7-56) 03/17/21 05:23 Alkaline Phosphatase 78 units/L (35-129) 03/17/21 05:23 Lactate Dehydrogenase 477 units/L (91-180) H 03/18/21 04:30 C-Reactive Protein 9.40 mg/dL (0.00-1.30) H 03/22/21 10:00 Total Protein 6.7 g/dL (6.3-8.2) 03/17/21 05:23 Albumin 3.2 g/dL (3.9-5) L 03/17/21 05:23 Albumin/Globulin Ratio 0.9 % 03/17/21 05:23 Triglycerides 381 mg/dL (2-149) H 03/23/21 04:30 Procalcitonin < 0.05 ng/mL (<0.15) 03/13/21 15:40 HCG, Qual Negative (Negative) 03/13/21 13:26 Arterial Blood Glucose 126 mg/dL (65-95) H 03/23/21 21:00 Arterial Blood Ionized Calcium 4.4 mg/dL (4.6-5.3) L 03/23/21 21:00 Urine Creatinine 40.1 mg/dL (0.1-20.0) H 03/14/21 17:50 Urine Sodium 124 mmol/L 03/14/21 17:50 Random Vancomycin 11.2 ug/mL (0-40.0) 03/20/21 04:23 Coronavirus (PCR) Positive (Negative) A 03/14/21 Unknown Hepatitis A IgM Ab Non-reactive (NonReactive) 03/15/21 05:09 Hep Bs Antigen Nonreactive (Negative) 03/15/21 05:09 Hep B Core IgM Ab Non-reactive (NonReactive) 03/15/21 05:09 Hepatitis C Antibody Non-reactive (NonReactive) 03/15/21 05:09 Microbiology: Microbiology 03/23/21 16:40 Tracheal Aspirate Sputum Culture - Preliminary 03/23/21 15:34 Peripheral/Venous Blood Culture - Preliminary NO GROWTH AFTER 24 HOURS 03/23/21 15:44 Peripheral/Venous Blood Culture - Preliminary NO GROWTH AFTER 24 HOURS Bazan/IV: Voiding Method Indwelling Catheter Active Medications - Current Medications Current Medications: Generic Name Dose Route Start Last Admin Trade Name Freq PRN Reason Stop Dose Admin Acetaminophen 650 mg 03/13/21 19:30 Acetaminophen 325 Mg Tab PO Q4H PRN Pain MILD(1-3)/Fever >100.5/SALAS Albuterol 2.5 mg 03/19/21 00:53 Albuterol 2.5 Mg/3 Ml Nebu IH Q4HRT PRN Shortness Of Breath Albuterol/Ipratropium 1 ampul 03/19/21 08:00 03/25/21 08:53 Ipratropium/Albuterol Sulfate 3 Ml Ampul.Neb IH Not Given Q6HRT INESSA Lipase/Protease/Amylase 1 each 03/15/21 11:42 Lipase 10,500/Protease 25,000/Amylase 43,750 (Units) Dr Cap FEEDTUBE PRN PRN For Clogged Feeding Tube Ascorbic Acid 500 mg 03/14/21 22:00 03/25/21 10:16 Ascorbic Acid 500 Mg Tab PO 500 mg BID INESSA Administration Bisacodyl 10 mg 03/22/21 22:00 03/24/21 21:40 Bisacodyl 10 Mg Rect Supp PA Not Given QHS INESSA Ciprofloxacin/Dexamethasone 1 drops 03/24/21 18:00 03/25/21 10:17 Ciprofloxacin/Dexameth Otic Susp 7.5ml TP 03/29/21 17:59 1 drops QID INESSA Administration Dextrose 50 ml 03/14/21 11:02 03/15/21 11:40 Dextrose 50% In Water (25gm) 50 Ml Syringe IV 50 ml Q30MIN PRN Administration Hypoglycemia Protocol Famotidine 10 mg 03/17/21 22:00 03/25/21 10:16 Famotidine 10 Mg Tab PO 10 mg BID INESSA Administration Fentanyl 50 mcg 03/15/21 10:43 Fentanyl 100 Mcg/2 Ml Inj IV Q10MIN PRN ANALGESIA Hydralazine HCl 10 mg 03/15/21 10:10 03/15/21 10:32 Hydralazine 20 Mg/1 Ml Inj IV 10 mg Q4HR PRN Administration Hypertension Hydrophilic Ointment 1 applic 03/14/21 17:50 Lip Therapy Vaseline TP Q2HR PRN Dry Lips Propofol 1,000 mg in 100 mls @ 4.123 mls/hr 03/15/21 11:00 03/25/21 07:17 Diprivan 10 Mg/Ml IV 25 mcg/kg/min TITR INESSA 20.616 mls/hr Administration Protocol 5 MCG/KG/MIN Fentanyl Citrate 2,000 mcg in 100 mls @ 6.872 mls/hr 03/15/21 11:00 03/25/21 10:16 Fentanyl Drip Premix IV 2 mcg/kg/hr TITR INESSA 13.744 mls/hr Administration Protocol 1 MCG/KG/HR Sodium Chloride 500 mls @ 1 mls/hr 03/16/21 17:19 Nacl 0.9% 500 Ml IV DIRECT PRN ARTERIAL LINE FLUSH Vasopressin 20 unit/ Sodium 101 mls @ 9.09 mls/hr 03/21/21 16:00 03/24/21 08:10 Chloride IV 0 units/min TITR INESSA 0 mls/hr Titration Protocol 0.03 UNITS/MIN Sodium Chloride 100 mls @ 999 mls/hr 03/21/21 20:23 Nacl 0.9% IV KARLOS PRN Hypotension Cefazolin Sodium 2 gm/ Sodium 100 mls @ 200 mls/hr 03/22/21 19:00 03/24/21 18:22 Chloride IV 03/26/21 19:29 200 mls/hr Q24H INESSA Administration Protocol NORepinephrine/NS 8 MG-250 ML 8 mg in 250 mls @ 3.75 mls/hr 03/23/21 11:00 03/24/21 14:31 Norepinephrine/Ns 8 Mg-250 Ml (Double Conc) IV 0 mcg/min TITRATE INESSA 0 mls/hr Titration Protocol 2 MCG/MIN Insulin Human Lispro 0 unit 03/14/21 12:00 03/25/21 00:19 Insulin Lispro 100 Unit/Ml SUB-Q Not Given Q6HR INESSA Protocol Lorazepam 1 mg 03/13/21 19:40 03/18/21 14:11 Lorazepam 2 Mg/Ml Vial IV 1 mg Q4H PRN Administration Anxiety Metoclopramide HCl 5 mg 03/21/21 16:00 03/25/21 10:16 Metoclopramide 10 Mg/2 Ml Inj IV 5 mg Q6H INESSA Administration Multi-Ingred Cream/Lotion/Oil/Oint 1 applic 03/14/21 17:50 Mineral Oil/Petrolatum, White Ophth Oint 3.5 Gm OU Q4HR PRN Dry Eye(s) Ondansetron HCl 4 mg 03/13/21 19:30 03/21/21 12:05 Ondansetron 4 Mg/2 Ml Inj IV 4 mg Q8H PRN Administration Nausea And Vomiting Senna/Docusate Sodium 1 tab 03/14/21 22:00 03/25/21 10:16 Sennosides/Docusate Sodium 8.6/50 Mg Tab FEEDTUBE 1 tab BID INESSA Administration Simple Syrup 15 ml 03/15/21 11:42 Simple Syrup 15 Ml FEEDTUBE PRN PRN Hypoglycemia Simple Syrup 30 ml 03/15/21 11:42 Simple Syrup 15 Ml FEEDTUBE PRN PRN Hypoglycemia Sodium Bicarbonate 325 mg 03/15/21 11:42 03/21/21 17:21 Sodium Bicarbonate 325 Mg Tab FEEDTUBE 325 mg PRN PRN Administration For Clogged Feeding Tube Sodium Chloride 10 ml 03/13/21 22:00 03/25/21 10:17 Sodium Chloride 0.9% 10 Ml Flush Syringe IV 10 ml BID INESSA Administration Sodium Chloride 10 ml 03/13/21 19:30 Sodium Chloride 0.9% 10 Ml Flush Syringe IV PRN PRN LINE FLUSH Zinc Sulfate 220 mg 03/14/21 22:00 03/25/21 10:16 Zinc Sulfate 220 Mg Cap PO 220 mg BID INESSA Administration Nutrition/Malnutrition Assess - Dietary Evaluation Nutrition/Malnutrition Findings: Nutrition Notes Start: 03/15/21 11:06 Freq: Status: Active Protocol: Document 03/23/21 17:05 GB (Rec: 03/23/21 17:20 GB [id number]) Nutrition Notes Initial or Follow up Reassessment Current Diagnosis Respiratory Failure Other Pertinent Diagnosis SOB. PMHx: asthma, morbid obesity, crohn's disease Current Diet TF: Nepro start rate 10ml ( goal 44ml/hr) Labs/Tests 03/23: BUN 82, creatinine 9.1, K 5.2, P 10.8, Mg 3.5, Tg 381 A1c 6.3 Pertinent Medications Vit C, D5(PRN), Fentanyl Citrate, Propofol 20.616ml/hr (544kcal), vassopressin/NaCl, Zn Sulfate Height 5 ft 5 in Weight 137.438 kg [place] Body Weight (kg) 56.81 BMI 50.4 Weight change and time frame Unable to see weights recorded by RN on RN flow sheet. No weights have transferred to I/O summary. Subjective/Other Information Pt is intubated/sedated - continues BM: 03/23: diarrhea, incontinent, rectal tube placed note 03/23: plan for HD RN note: TF to start at 10ml/ hr continues. Increase as tolerated. TF currently at 20ml/hr advancing as tolerated. Percent of energy/protein needs met: TF at goal will meet 75% or greater of minimal EEN Burn Absent Trauma Absent GI Symptoms Diarrhea Difficulty In Swallowing Food Allergy No Skin Integrity/Comment No complications reported Current % PO Other Minimum of two criteria No #1 Nutrition Diagnosis Swallowing difficulty Comments: 03/17: intubation/sedation/TF continues 03/19: intubation/sedation/TF continues 03/23: intubation/sedation/TF continues Etiology SOB, respiratory failure As Evidenced by Signs and Symptoms intubated/sedated (03/14) Diagnosis Progress(for reassessment Continues documentation) Is patient on ventilator? Yes Is Patient Ambulatory and/or Out of Bed No REE-([facility]-confined to bed) 2515.536 Kcal/Kg value to use for calculation 15 Approximate Energy Requirements Using 2061 kcal/Kg Calculation Used for Recommendations Kcal/kg Additional Notes Protein 0.6g/kg or greater @ 137g or greater Fluids: 1ml/kcal or per MD Post weight in I/O flow sheet Nutrition Intervention Change Diet Order: NPO Nutrition Support: 03/19: Nepro @ 44ml/hr (10ml/hr slowly advancing to goal as tolerated) Flush: 155ml/4hr Total free H2O/day: TF@goal + flush = 1700ml Kcal 1,900 Protein (gm) 86 Carbohydrates (gm) 170 Fat (gm) 101 Fluid (mL) 767 Fiber (gm) 13 % RDI: 100kcal/104pro Goal #1 TF started and tolerated by f/ u 03/17 met, changing to nepro 03/19: nepro, post vomiting event, TF restarted @10ml advancing as tolerated. 03/23: TF at 20ml/hr. Advancing as tolerated Goal #2 TF at goal by f/u 03/19: restarted at 10ml/hr advancing to goal. Currently at 20ml/hr. 03/23: remaining at 20ml/hr advancing as tolerated. Follow-Up By: 03/26/21 Additional Comments f/u: TF tolerance, vent status <WESLEY LANCASTER - Last Filed: 03/26/21 07:19> Assessment and Plan Assessment and plan: I saw and evaluated the patient. I agree with the findings and the plan of care as documented in the Nurse Practitioner's~note, with the following corrections and additions. Hospitalist Physical - Constitutional Vitals: Temp Pulse Resp BP Pulse Ox 100.1 F H 111 H 34 H 113/46 91 03/26/21 04:00 03/26/21 07:00 03/26/21 03:38 03/26/21 07:00 03/26/21 07:00 Results - Labs CBC & Chem 7: 03/26/21 05:15 03/26/21 05:15 Labs: Laboratory Last Values WBC 14.0 K/mm3 (4.5-11.0) H 03/26/21 05:15 RBC 2.83 M/mm3 (3.65-5.03) L 03/26/21 05:15 Hgb 7.6 gm/dl (10.1-14.3) L 03/26/21 05:15 Hct 23.6 % (30.3-42.9) L 03/26/21 05:15 MCV 83 fl (79-97) 03/26/21 05:15 MCH 27 pg (28-32) L 03/26/21 05:15 MCHC 32 % (30-34) 03/26/21 05:15 RDW 17.1 % (13.2-15.2) H 03/26/21 05:15 Plt Count 116 K/mm3 (140-440) L 03/26/21 05:15 Lymph % (Auto) 7.8 % (13.4-35.0) L 03/14/21 06:21 [place] % (Auto) 6.7 % (0.0-7.3) 03/14/21 06:21 Eos % (Auto) 0.0 % (0.0-4.3) 03/14/21 06:21 Baso % (Auto) 0.1 % (0.0-1.8) 03/14/21 06:21 Lymph # (Auto) 1.6 K/mm3 (1.2-5.4) 03/14/21 06:21 [place] # (Auto) 1.3 K/mm3 (0.0-0.8) H 03/14/21 06:21 Eos # (Auto) 0.0 K/mm3 (0.0-0.4) 03/14/21 06:21 Baso # (Auto) 0.0 K/mm3 (0.0-0.1) 03/14/21 06:21 Seg Neutrophils % 85.4 % (40.0-70.0) H 03/14/21 06:21 Seg Neutrophils # 17.1 K/mm3 (1.8-7.7) H 03/14/21 06:21 PT 15.8 Sec. (12.2-14.9) H 03/22/21 13:40 INR 1.14 (0.87-1.13) H 03/22/21 13:40 APTT 26.8 Sec. (24.2-36.6) 03/22/21 13:40 D-Dimer > 04858 ng/mlDDU (0-234) H 03/22/21 13:40 ABG pH 7.381 pH Units (7.350-7.450) 03/25/21 21:30 POC ABG pCO2 50.3 mmHg (32.0-48.0) H 03/23/21 21:00 ABG pCO2 44.1 mm Hg 03/25/21 21:30 POC ABG pO2 114.4 mmHg (83-108) H 03/23/21 21:00 ABG pO2 70.2 mm Hg (80.0-90.0) L 03/25/21 21:30 POC ABG HCO3 20.3 03/23/21 21:00 ABG HCO3 25.6 mmol/L (20.0-26.0) 03/25/21 21:30 ABG O2 Saturation 96.4 % (95.0-99.0) 03/25/21 21:30 ABG O2 Content 9.1 (0.0-44) 03/25/21 21:30 POC ABG Base Excess -7.1 03/23/21 21:00 ABG Base Excess 0.4 mmol/L (-2.0-3.0) 03/25/21 21:30 ABG Hemoglobin 6.8 gm/dl (12.0-16.0) L 03/25/21 21:30 ABG Oxyhemoglobin 97.1 (94-98) 03/23/21 21:00 ABG Carboxyhemoglobin 1.6 % (0.0-5.0) 03/25/21 21:30 ABG Methemoglobin 0.4 % (0.0-1.5) 03/25/21 21:30 ABG Sodium 130.4 mmol/L (136.0-145.0) L 03/23/21 21:00 ABG Potassium 5.1 mmol/L (3.40-4.50) H 03/23/21 21:00 ABG Chloride 100.0 mmol/L (98-107) 03/23/21 21:00 ABG Glucose 126 mg/dL (65-95) H 03/23/21 21:00 Oxyhemoglobin 94.5 % (95.0-99.0) L 03/25/21 21:30 Carboxyhemoglobin 0.2 (0.5-1.5) L 03/23/21 21:00 FiO2 100 % 03/25/21 21:30 FiO2 % 80.0 03/23/21 21:00 Sodium 138 mmol/L (137-145) 03/26/21 05:15 Potassium 3.4 mmol/L (3.6-5.0) L 03/26/21 05:15 Chloride 100.6 mmol/L (98-107) 03/26/21 05:15 Carbon Dioxide 23 mmol/L (22-30) 03/26/21 05:15 Anion Gap 18 mmol/L 03/26/21 05:15 BUN 70 mg/dL (7-17) H 03/26/21 05:15 Creatinine 7.3 mg/dL (0.6-1.2) H 03/26/21 05:15 Estimated GFR 8 ml/min 03/26/21 05:15 BUN/Creatinine Ratio 10 % 03/26/21 05:15 Glucose 142 mg/dL (65-100) H 03/26/21 05:15 POC Glucose 130 mg/dL (70-105) H 03/26/21 05:35 Hemoglobin A1c 6.3 % (4-6) H 03/15/21 05:09 Lactic Acid 2.00 mmol/L (0.7-2.0) 03/14/21 18:47 Calcium 8.2 mg/dL (8.4-10.2) L 03/26/21 05:15 Phosphorus 10.80 mg/dL (2.5-4.5) H 03/23/21 04:30 Magnesium 3.50 mg/dL (1.7-2.3) H 03/23/21 04:30 Ferritin 151.6 ng/mL (10.0-200.0) 03/18/21 04:30 Total Bilirubin 0.20 mg/dL (0.1-1.2) 03/17/21 05:23 AST 35 units/L (5-40) 03/17/21 05:23 ALT 24 units/L (7-56) 03/17/21 05:23 Alkaline Phosphatase 78 units/L (35-129) 03/17/21 05:23 Lactate Dehydrogenase 477 units/L (91-180) H 03/18/21 04:30 C-Reactive Protein 9.40 mg/dL (0.00-1.30) H 03/22/21 10:00 Total Protein 6.7 g/dL (6.3-8.2) 03/17/21 05:23 Albumin 3.2 g/dL (3.9-5) L 03/17/21 05:23 Albumin/Globulin Ratio 0.9 % 03/17/21 05:23 Triglycerides 254 mg/dL (2-149) H 03/26/21 05:15 Procalcitonin < 0.05 ng/mL (<0.15) 03/13/21 15:40 HCG, Qual Negative (Negative) 03/13/21 13:26 Arterial Blood Glucose 126 mg/dL (65-95) H 03/23/21 21:00 Arterial Blood Ionized Calcium 4.4 mg/dL (4.6-5.3) L 03/23/21 21:00 Urine Creatinine 40.1 mg/dL (0.1-20.0) H 03/14/21 17:50 Urine Sodium 124 mmol/L 03/14/21 17:50 Random Vancomycin 11.2 ug/mL (0-40.0) 03/20/21 04:23 Coronavirus (PCR) Positive (Negative) A 03/14/21 Unknown Hepatitis A IgM Ab Non-reactive (NonReactive) 03/15/21 05:09 Hep Bs Antigen Nonreactive (Negative) 03/15/21 05:09 Hep B Core IgM Ab Non-reactive (NonReactive) 03/15/21 05:09 Hepatitis C Antibody Non-reactive (NonReactive) 03/15/21 05:09 Blood Type O POSITIVE 03/25/21 13:45 Antibody Screen Negative 03/25/21 13:45 Crossmatch See Detail 03/25/21 13:45 Microbiology: Microbiology 03/23/21 15:34 Peripheral/Venous Blood Culture - Preliminary NO GROWTH AFTER 48 HOURS 03/23/21 15:44 Peripheral/Venous Blood Culture - Preliminary NO GROWTH AFTER 48 HOURS 03/23/21 16:40 Tracheal Aspirate Sputum Culture - Preliminary [place]/IV: Voiding Method Incontinent Active Medications - Current Medications Current Medications: Generic Name Dose Route Start Last Admin Trade Name Freq PRN Reason Stop Dose Admin Acetaminophen 650 mg 03/13/21 19:30 03/25/21 20:00 Acetaminophen 325 Mg Tab PO 650 mg Q4H PRN Administration Pain MILD(1-3)/Fever >100.5/SALAS Albuterol 2.5 mg 03/19/21 00:53 Albuterol 2.5 Mg/3 Ml Nebu IH Q4HRT PRN Shortness Of Breath Albuterol/Ipratropium 1 ampul 03/19/21 08:00 03/26/21 03:37 Ipratropium/Albuterol Sulfate 3 Ml Ampul.Neb IH 1 ampul Q6HRT INESSA Administration Lipase/Protease/Amylase 1 each 03/15/21 11:42 Lipase 10,500/Protease 25,000/Amylase 43,750 (Units) Dr White FEEDTUBE PRN PRN For Clogged Feeding Tube Ascorbic Acid 500 mg 03/14/21 22:00 03/25/21 21:38 Ascorbic Acid 500 Mg Tab PO 500 mg BID INESSA Administration Bisacodyl 10 mg 03/22/21 22:00 03/25/21 21:38 Bisacodyl 10 Mg Rect Supp PA 10 mg QHS INESSA Administration Ciprofloxacin/Dexamethasone 1 drops 03/24/21 18:00 03/25/21 21:50 Ciprofloxacin/Dexameth Otic Susp 7.5ml TP 03/29/21 17:59 1 drops QID INESSA Administration Dextrose 50 ml 03/14/21 11:02 03/15/21 11:40 Dextrose 50% In Water (25gm) 50 Ml Syringe IV 50 ml Q30MIN PRN Administration Hypoglycemia Protocol Famotidine 10 mg 03/17/21 22:00 03/25/21 21:38 Famotidine 10 Mg Tab PO 10 mg BID INESSA Administration Fentanyl 50 mcg 03/15/21 10:43 Fentanyl 100 Mcg/2 Ml Inj IV Q10MIN PRN ANALGESIA Hydralazine HCl 10 mg 03/15/21 10:10 03/15/21 10:32 Hydralazine 20 Mg/1 Ml Inj IV 10 mg Q4HR PRN Administration Hypertension Hydrophilic Ointment 1 applic 03/14/21 17:50 Lip Therapy Vaseline TP Q2HR PRN Dry Lips Propofol 1,000 mg in 100 mls @ 4.123 mls/hr 03/15/21 11:00 03/26/21 03:48 Diprivan 10 Mg/Ml IV 25 mcg/kg/min TITR INESSA 20.616 mls/hr Administration Protocol 5 MCG/KG/MIN Fentanyl Citrate 2,000 mcg in 100 mls @ 6.872 mls/hr 03/15/21 11:00 03/26/21 06:54 Fentanyl Drip Premix IV 2 mcg/kg/hr TITR INESSA 13.744 mls/hr Administration Protocol 1 MCG/KG/HR Sodium Chloride 500 mls @ 1 mls/hr 03/16/21 17:19 Nacl 0.9% 500 Ml IV DIRECT PRN ARTERIAL LINE FLUSH Vasopressin 20 unit/ Sodium 101 mls @ 9.09 mls/hr 03/21/21 16:00 03/24/21 08:10 Chloride IV 0 units/min TITR INESSA 0 mls/hr Titration Protocol 0.03 UNITS/MIN Sodium Chloride 100 mls @ 999 mls/hr 03/21/21 20:23 Nacl 0.9% IV KARLOS PRN Hypotension Cefazolin Sodium 2 gm/ Sodium 100 mls @ 200 mls/hr 03/22/21 19:00 03/25/21 18:05 Chloride IV 03/26/21 19:29 200 mls/hr Q24H INESSA Administration Protocol NORepinephrine/NS 8 MG-250 ML 8 mg in 250 mls @ 3.75 mls/hr 03/23/21 11:00 03/24/21 14:31 Norepinephrine/Ns 8 Mg-250 Ml (Double Conc) IV 0 mcg/min TITRATE INESSA 0 mls/hr Titration Protocol 2 MCG/MIN Sodium Chloride 500 mls @ 0 mls/hr 03/25/21 12:04 Nacl 0.9% 500 Ml IV ONCE INESSA As Directed Insulin Human Lispro 0 unit 03/14/21 12:00 03/26/21 05:35 Insulin Lispro 100 Unit/Ml SUB-Q Not Given Q6HR INESSA Protocol Lorazepam 1 mg 03/13/21 19:40 03/18/21 14:11 Lorazepam 2 Mg/Ml Vial IV 1 mg Q4H PRN Administration Anxiety Metoclopramide HCl 5 mg 03/21/21 16:00 03/26/21 05:29 Metoclopramide 10 Mg/2 Ml Inj IV 5 mg Q6H INESSA Administration Multi-Ingred Cream/Lotion/Oil/Oint 1 applic 03/14/21 17:50 Mineral Oil/Petrolatum, White Ophth Oint 3.5 Gm OU Q4HR PRN Dry Eye(s) Ondansetron HCl 4 mg 03/13/21 19:30 03/21/21 12:05 Ondansetron 4 Mg/2 Ml Inj IV 4 mg Q8H PRN Administration Nausea And Vomiting Senna/Docusate Sodium 1 tab 03/14/21 22:00 03/25/21 21:51 Sennosides/Docusate Sodium 8.6/50 Mg Tab FEEDTUBE 1 tab BID INESSA Administration Simple Syrup 15 ml 03/15/21 11:42 Simple Syrup 15 Ml FEEDTUBE PRN PRN Hypoglycemia Simple Syrup 30 ml 03/15/21 11:42 Simple Syrup 15 Ml FEEDTUBE PRN PRN Hypoglycemia Sodium Bicarbonate 325 mg 03/15/21 11:42 03/21/21 17:21 Sodium Bicarbonate 325 Mg Tab FEEDTUBE 325 mg PRN PRN Administration For Clogged Feeding Tube Sodium Chloride 10 ml 03/13/21 22:00 03/25/21 21:52 Sodium Chloride 0.9% 10 Ml Flush Syringe IV 10 ml BID INESSA Administration Sodium Chloride 10 ml 03/13/21 19:30 Sodium Chloride 0.9% 10 Ml Flush Syringe IV PRN PRN LINE FLUSH Zinc Sulfate 220 mg 03/14/21 22:00 03/25/21 21:50 Zinc Sulfate 220 Mg Cap PO 220 mg BID INESSA Administration Nutrition/Malnutrition Assess - Dietary Evaluation Nutrition/Malnutrition Findings: Nutrition Notes Start: 03/15/21 11:06 Freq: Status: Active Protocol: Document 03/23/21 17:05 GB (Rec: 03/23/21 17:20 GB [email or web address]) Nutrition Notes Initial or Follow up Reassessment Current Diagnosis Respiratory Failure Other Pertinent Diagnosis SOB. PMHx: asthma, morbid obesity, crohn's disease Current Diet TF: Nepro start rate 10ml ( goal 44ml/hr) Labs/Tests 03/23: BUN 82, creatinine 9.1, K 5.2, P 10.8, Mg 3.5, Tg 381 A1c 6.3 Pertinent Medications Vit C, D5(PRN), Fentanyl Citrate, Propofol 20.616ml/hr (544kcal), vassopressin/NaCl, Zn Sulfate Height 5 ft 5 in Weight 137.438 kg [place] Body Weight (kg) 56.81 BMI 50.4 Weight change and time frame Unable to see weights recorded by RN on RN flow sheet. No weights have transferred to I/O summary. Subjective/Other Information Pt is intubated/sedated - continues BM: 03/23: diarrhea, incontinent, rectal tube placed MD note 03/23: plan for HD RN note: TF to start at 10ml/ hr continues. Increase as tolerated. TF currently at 20ml/hr advancing as tolerated. Percent of energy/protein needs met: TF at goal will meet 75% or greater of minimal EEN Burn Absent Trauma Absent GI Symptoms Diarrhea Difficulty In Swallowing Food Allergy No Skin Integrity/Comment No complications reported Current % PO Other Minimum of two criteria No #1 Nutrition Diagnosis Swallowing difficulty Comments: 03/17: intubation/sedation/TF continues 03/19: intubation/sedation/TF continues 03/23: intubation/sedation/TF continues Etiology SOB, respiratory failure As Evidenced by Signs and Symptoms intubated/sedated (03/14) Diagnosis Progress(for reassessment Continues documentation) Is patient on ventilator? Yes Is Patient Ambulatory and/or Out of Bed No REE-([facility]-confined to bed) 2515.536 Kcal/Kg value to use for calculation 15 Approximate Energy Requirements Using 2 kcal/Kg Calculation Used for Recommendations Kcal/kg Additional Notes Protein 0.6g/kg or greater @ 137g or greater Fluids: 1ml/kcal or per MD Post weight in I/O flow sheet Nutrition Intervention Change Diet Order: NPO Nutrition Support: 03/19: Nepro @ 44ml/hr (10ml/hr slowly advancing to goal as tolerated) Flush: 155ml/4hr Total free H2O/day: TF@goal + flush = 1700ml Kcal 1,900 Protein (gm) 86 Carbohydrates (gm) 170 Fat (gm) 101 Fluid (mL) 767 Fiber (gm) 13 % RDI: 100kcal/104pro Goal #1 TF started and tolerated by f/ u 03/17 met, changing to nepro 03/19: nepro, post vomiting event, TF restarted @10ml advancing as tolerated. 03/23: TF at 20ml/hr. Advancing as tolerated Goal #2 TF at goal by f/u 03/19: restarted at 10ml/hr advancing to goal. Currently at 20ml/hr. 03/23: remaining at 20ml/hr advancing as tolerated. Follow-Up By: 03/26/21 Additional Comments f/u: TF tolerance, vent status
[2021-03-25] MEDS ORDERED: SODIUM CHLORIDE 0.9% 500 ML 500 ML IV SCH (12:04)
--- NOTE | 2021-03-25 13:03 | Progress Note ---
Assessment and Plan Acute hypoxemic respiratory failure Acute asthma exacerbation Morbid obesity Crohn's disease Metabolic acidosis Acute kidney injury Coronavirus infection Pneumonia (CAP) Oropharyngeal dysphagia Obesity, if not mentioned above - transfuse 1 unit PRBC - Apixaban stopped - complete ciprodex eye drops qid X 3-5 days - repeat ABG at 9 pm and address - continue care as below otherwise; - follow HIT assay - nephrology input appreciated; HD/UF for toxin and volume clearance - HD/UF sessions per nephrology prescription - vasopressors for target MAP > 65 mmHg - continue Daily SAT and SBT assessment as tolerated - continue to wean supplemental oxygen for target O2 sat's > 90% acutely - VAP bundle addressed - continue lung protective strategies - continue bronchodilators with pulmonary hygiene per RT - wean per pulmonary driven protocols otherwise - continue accuchecks with glycemic control per SSI (While critically ill target blood glucose of 140-180 mg/dL; avoid hypoglycemia) - sedation prn for target RASS 0 to -1 - avoid nephrotoxins, renally dose all medications - continue to avoid benzodiazepine's, reduce the possibility of delirium - AB's per ID rec's - prn analgesia per CPOT score - Maintenance of sleep-wake cycle, avoid delirium - continue enteral nutritional support at goal rate as tolerated - G.I. & VTE prophylaxis - PT/OT/ROM exercises - continue mobility protocols for pressure ulcer prophylaxis - Monitor hemodynamics closely - continue other care per attending / other consultants - discharge planning ongoing concurrently COVID SPECIFIC INTERVENTIONS - Actemra ordered if available - Remdesivir as per ID/Pulmonary developed protocols (not a candidate) - continue systemic steroids for severe COVID-19 infection empirically - follow repeat COVID tests results - zinc and vitamin C supplementation - Monitor inflammatory markers per facility protocol - ferritin, Ddimer, CRP - therapeutic anticoagulation per system Protocol based on d-dimer and clinical considerations (VTE prophylaxis) - Continue contact and airborne isolation .... Re-evaluate in am & prn CONDITION: CRITICAL PROGNOSIS: GUARDED CODE STATUS: FULL CODE The high probability of a clinically significant, sudden or life-threatening deterioration of the [respiratory, cardiovascular, renal & neurologic] system(s) required my full and direct attention, intervention and personal management. The aggregate critical care time was [33] minutes without overlap. Time includes spent on; [x] Data Review and interpretation [x] Patient assessment and monitoring of vital signs [x] Documentation [x] Medication orders and management Subjective Date of service: 03/25/21 Principal diagnosis: Ac hypoxemic resp failure; AE-Asthma; SAI; Crohn's; COVID- 19; Pneumonia Interval history: Patient is seen today for: Acute hypoxemic respiratory failure; AE-Asthma; SAI; Crohn's disease; COVID-19 infection; Pneumonia (CAP) Seen and examined at bedside; 24hour events reviewed; nursing and respiratory care staff consulted; no adverse overnight events reported to me; resting in bed; Serum Hb dropped to 6.8 and PRBC pack ordered; no gross bleeding; she remains appropriately responsive and without lateralizing signs; no N/V/F/C Objective Vital Signs - 12hr 03/25/21 03/25/21 03/25/21 01:30 02:00 02:30 Temperature Pulse Rate 103 H 105 H 100 H Pulse Rate [ From Monitor] Respiratory 25 H 25 H 23 Rate Blood Pressure 111/40 106/40 120/46 O2 Sat by Pulse 98 99 98 Oximetry O2 Sat by Pulse Oximetry [ Anterior Bilateral Throughout] O2 Sat by Pulse Oximetry [ Bilateral] 03/25/21 03/25/21 03/25/21 03:00 03:30 04:00 Temperature Pulse Rate 102 H 105 H 102 H Pulse Rate [ 105 H From Monitor] Respiratory 17 24 26 H Rate Blood Pressure 114/40 110/60 113/44 O2 Sat by Pulse 99 97 99 Oximetry O2 Sat by Pulse Oximetry [ Anterior Bilateral Throughout] O2 Sat by Pulse Oximetry [ Bilateral] 03/25/21 03/25/21 03/25/21 04:10 04:30 05:00 Temperature 100.2 F H Pulse Rate 104 H 106 H Pulse Rate [ From Monitor] Respiratory 25 H 27 H Rate Blood Pressure 122/43 118/45 O2 Sat by Pulse 98 98 Oximetry O2 Sat by Pulse Oximetry [ Anterior Bilateral Throughout] O2 Sat by Pulse Oximetry [ Bilateral] 03/25/21 03/25/21 03/25/21 05:05 05:30 06:00 Temperature Pulse Rate 105 H 105 H 100 H Pulse Rate [ From Monitor] Respiratory 20 11 L Rate Blood Pressure 118/45 122/51 120/40 O2 Sat by Pulse 95 97 98 Oximetry O2 Sat by Pulse Oximetry [ Anterior Bilateral Throughout] O2 Sat by Pulse Oximetry [ Bilateral] 03/25/21 03/25/21 03/25/21 06:30 07:00 07:30 Temperature Pulse Rate 106 H 104 H 105 H Pulse Rate [ From Monitor] Respiratory 13 14 12 Rate Blood Pressure 119/49 111/42 112/36 O2 Sat by Pulse 94 94 98 Oximetry O2 Sat by Pulse Oximetry [ Anterior Bilateral Throughout] O2 Sat by Pulse Oximetry [ Bilateral] 03/25/21 03/25/21 03/25/21 08:00 08:30 08:47 Temperature 100.3 F H Pulse Rate 104 H 104 H 106 H Pulse Rate [ 102 H From Monitor] Respiratory 24 24 Rate Blood Pressure 115/40 105/38 113/39 O2 Sat by Pulse 97 98 95 Oximetry O2 Sat by Pulse Oximetry [ Anterior Bilateral Throughout] O2 Sat by Pulse Oximetry [ Bilateral] 03/25/21 03/25/21 03/25/21 09:00 09:30 10:00 Temperature Pulse Rate 105 H 107 H 106 H Pulse Rate [ From Monitor] Respiratory 27 H 28 H 26 H Rate Blood Pressure 109/44 111/39 113/37 O2 Sat by Pulse 97 97 95 Oximetry O2 Sat by Pulse Oximetry [ Anterior Bilateral Throughout] O2 Sat by Pulse Oximetry [ Bilateral] 03/25/21 03/25/21 03/25/21 10:30 11:00 11:30 Temperature 100.3 F H Pulse Rate 105 H 105 H 105 H Pulse Rate [ From Monitor] Respiratory 26 H 29 H 26 H Rate Blood Pressure 110/41 120/44 99/42 O2 Sat by Pulse 97 97 Oximetry O2 Sat by Pulse 95 Oximetry [ Anterior Bilateral Throughout] O2 Sat by Pulse 95 Oximetry [ Bilateral] 03/25/21 03/25/21 03/25/21 11:45 12:00 12:01 Temperature Pulse Rate 112 H 112 H 111 H Pulse Rate [ 104 H From Monitor] Respiratory 30 H Rate Blood Pressure 99/52 125/53 125/53 O2 Sat by Pulse 95 94 Oximetry O2 Sat by Pulse Oximetry [ Anterior Bilateral Throughout] O2 Sat by Pulse Oximetry [ Bilateral] 03/25/21 03/25/21 03/25/21 12:15 12:30 12:31 Temperature Pulse Rate 110 H 104 H 111 H Pulse Rate [ From Monitor] Respiratory 23 Rate Blood Pressure 139/71 132/81 132/81 O2 Sat by Pulse 92 Oximetry O2 Sat by Pulse Oximetry [ Anterior Bilateral Throughout] O2 Sat by Pulse Oximetry [ Bilateral] 03/25/21 12:45 Temperature Pulse Rate 112 H Pulse Rate [ From Monitor] Respiratory Rate Blood Pressure 141/83 O2 Sat by Pulse Oximetry O2 Sat by Pulse Oximetry [ Anterior Bilateral Throughout] O2 Sat by Pulse Oximetry [ Bilateral] Constitutional: no acute distress, other (morbidly obese female with mild ventilator dyssynchrony) Eyes: non-icteric ENT: oropharynx moist, other (ETT 25 cm BALJINDER) Neck: supple, no lymphadenopathy, no JVD, other (large circumference) Effort: mildly labored Ascultation: Bilateral: diminished breath sounds, rhonchi Percussion: Bilateral: not dull Cardiovascular: regular rate and rhythm Gastrointestinal: normoactive bowel sounds, soft, non-tender, non-distended (protuberant) Integumentary: normal Extremities: no cyanosis, no edema, pulses normal, no ischemia or petechiae Neurologic: non-focal exam (grossly), pupils equal and round, CN II-XII normal, motor strength normal and, other (moves all extremities spontaneously) Psychiatric: other (unasble to assess) CBC and BMP: 03/26/21 05:15 03/26/21 05:15 ABG, PT/INR, D-dimer: ABG ABG pH 7.241 pH Units (7.350-7.450) L 03/24/21 21:35 POC ABG pCO2 50.3 mmHg (32.0-48.0) H 03/23/21 21:00 ABG pCO2 61.9 mm Hg 03/24/21 21:35 POC ABG pO2 114.4 mmHg (83-108) H 03/23/21 21:00 ABG pO2 72.4 mm Hg (80.0-90.0) L 03/24/21 21:35 POC ABG HCO3 20.3 03/23/21 21:00 ABG O2 Saturation 90.3 % (95.0-99.0) L 03/24/21 21:35 PT/INR, D-dimer PT 15.8 Sec. (12.2-14.9) H 03/22/21 13:40 INR 1.14 (0.87-1.13) H 03/22/21 13:40 D-Dimer > 70360 ng/mlDDU (0-234) H 03/22/21 13:40 Abnormal lab findings: Abnormal Labs 03/13/21 03/13/21 03/13/21 13:26 13:26 15:40 WBC RBC Hgb Hct MCH 27 L RDW 17.0 H Plt Count Lymph % (Auto) [place] # (Auto) Seg Neutrophils % Seg Neutrophils # PT INR D-Dimer ABG pH POC ABG pCO2 POC ABG pO2 ABG pO2 ABG HCO3 ABG O2 Saturation ABG Base Excess ABG Hemoglobin ABG Oxyhemoglobin ABG Sodium ABG Potassium ABG Glucose Oxyhemoglobin Carboxyhemoglobin Sodium 136 L Potassium Chloride Carbon Dioxide BUN Creatinine Glucose 125 H 130 H POC Glucose Hemoglobin A1c Calcium Phosphorus Magnesium Lactate Dehydrogenase 235 H C-Reactive Protein 4.30 H Total Protein Albumin Triglycerides Arterial Blood Glucose Arterial Blood Ionized Calcium Urine Creatinine Random Vancomycin Coronavirus (PCR) 03/13/21 03/14/21 03/14/21 21:33 03:35 06:21 WBC 20.0 H RBC Hgb Hct MCH 27 L RDW 17.5 H Plt Count Lymph % (Auto) 7.8 L [place] # (Auto) 1.3 H Seg Neutrophils % 85.4 H Seg Neutrophils # 17.1 H PT INR D-Dimer ABG pH 7.323 L 7.234 L POC ABG pCO2 POC ABG pO2 ABG pO2 69.8 L ABG HCO3 ABG O2 Saturation 92.9 L 94.9 L ABG Base Excess -3.3 L -5.4 L ABG Hemoglobin ABG Oxyhemoglobin ABG Sodium ABG Potassium ABG Glucose Oxyhemoglobin 91.2 L 93.2 L Carboxyhemoglobin Sodium Potassium Chloride Carbon Dioxide BUN Creatinine Glucose POC Glucose Hemoglobin A1c Calcium Phosphorus Magnesium Lactate Dehydrogenase C-Reactive Protein Total Protein Albumin Triglycerides Arterial Blood Glucose Arterial Blood Ionized Calcium Urine Creatinine Random Vancomycin Coronavirus (PCR) 03/14/21 03/14/21 03/14/21 06:21 07:47 11:21 WBC RBC Hgb Hct MCH RDW Plt Count Lymph % (Auto) [place] # (Auto) Seg Neutrophils % Seg Neutrophils # PT INR D-Dimer ABG pH POC ABG pCO2 POC ABG pO2 ABG pO2 ABG HCO3 ABG O2 Saturation ABG Base Excess ABG Hemoglobin ABG Oxyhemoglobin ABG Sodium ABG Potassium ABG Glucose Oxyhemoglobin Carboxyhemoglobin Sodium 136 L 136 L Potassium 6.2 H* D 5.4 H Chloride Carbon Dioxide 21 L 21 L BUN Creatinine 1.5 H D 1.8 H Glucose 144 H 141 H POC Glucose 147 H Hemoglobin A1c Calcium Phosphorus Magnesium Lactate Dehydrogenase C-Reactive Protein Total Protein 8.7 H 9.2 H Albumin 3.8 L Triglycerides Arterial Blood Glucose Arterial Blood Ionized Calcium Urine Creatinine Random Vancomycin Coronavirus (PCR) 03/14/21 03/14/21 03/14/21 17:29 17:50 18:35 WBC RBC Hgb Hct MCH RDW Plt Count Lymph % (Auto) [place] # (Auto) Seg Neutrophils % Seg Neutrophils # PT INR D-Dimer ABG pH POC ABG pCO2 POC ABG pO2 ABG pO2 ABG HCO3 ABG O2 Saturation ABG Base Excess ABG Hemoglobin ABG Oxyhemoglobin ABG Sodium ABG Potassium ABG Glucose Oxyhemoglobin Carboxyhemoglobin Sodium 135 L Potassium 6.4 H* Chloride Carbon Dioxide 15 L BUN 26 H Creatinine 3.4 H D Glucose 165 H POC Glucose 209 H Hemoglobin A1c Calcium Phosphorus Magnesium Lactate Dehydrogenase C-Reactive Protein Total Protein Albumin Triglycerides Arterial Blood Glucose Arterial Blood Ionized Calcium Urine Creatinine 40.1 H Random Vancomycin Coronavirus (PCR) 03/14/21 03/14/21 03/14/21 18:46 22:23 23:52 WBC RBC Hgb Hct MCH RDW Plt Count Lymph % (Auto) [place] # (Auto) Seg Neutrophils % Seg Neutrophils # PT INR D-Dimer ABG pH 7.270 L POC ABG pCO2 POC ABG pO2 63.4 L ABG pO2 ABG HCO3 ABG O2 Saturation ABG Base Excess ABG Hemoglobin ABG Oxyhemoglobin 90.2 L ABG Sodium 134.9 L ABG Potassium 5.3 H ABG Glucose 134 H Oxyhemoglobin Carboxyhemoglobin Sodium 136 L Potassium 5.2 H Chloride Carbon Dioxide 20 L BUN 29 H Creatinine 3.6 H Glucose 236 H POC Glucose 128 H Hemoglobin A1c Calcium Phosphorus Magnesium Lactate Dehydrogenase C-Reactive Protein Total Protein Albumin 3.2 L Triglycerides Arterial Blood Glucose 134 H Arterial Blood Ionized Calcium Urine Creatinine Random Vancomycin Coronavirus (PCR) 03/14/21 03/15/21 03/15/21 Unknown 05:00 05:09 WBC 22.5 H RBC Hgb Hct MCH 27 L RDW 17.6 H Plt Count Lymph % (Auto) [place] # (Auto) Seg Neutrophils % Seg Neutrophils # PT INR D-Dimer ABG pH POC ABG pCO2 POC ABG pO2 ABG pO2 ABG HCO3 ABG O2 Saturation ABG Base Excess ABG Hemoglobin ABG Oxyhemoglobin ABG Sodium ABG Potassium ABG Glucose Oxyhemoglobin Carboxyhemoglobin Sodium Potassium Chloride Carbon Dioxide BUN Creatinine Glucose POC Glucose 116 H Hemoglobin A1c Calcium Phosphorus Magnesium Lactate Dehydrogenase C-Reactive Protein Total Protein Albumin Triglycerides Arterial Blood Glucose Arterial Blood Ionized Calcium Urine Creatinine Random Vancomycin Coronavirus (PCR) Positive A 03/15/21 03/15/21 03/15/21 05:09 05:09 05:09 WBC RBC Hgb Hct MCH RDW Plt Count Lymph % (Auto) [place] # (Auto) Seg Neutrophils % Seg Neutrophils # PT INR D-Dimer ABG pH POC ABG pCO2 POC ABG pO2 ABG pO2 ABG HCO3 ABG O2 Saturation ABG Base Excess ABG Hemoglobin ABG Oxyhemoglobin ABG Sodium ABG Potassium ABG Glucose Oxyhemoglobin Carboxyhemoglobin Sodium 136 L Potassium 6.5 H* D Chloride Carbon Dioxide 17 L BUN 41 H Creatinine 5.3 H Glucose 128 H POC Glucose Hemoglobin A1c 6.3 H Calcium Phosphorus Magnesium Lactate Dehydrogenase C-Reactive Protein 12.10 H Total Protein Albumin 3.1 L Triglycerides Arterial Blood Glucose Arterial Blood Ionized Calcium Urine Creatinine Random Vancomycin Coronavirus (PCR) 03/15/21 03/15/21 03/15/21 10:00 21:50 23:39 WBC RBC Hgb Hct MCH RDW Plt Count Lymph % (Auto) [place] # (Auto) Seg Neutrophils % Seg Neutrophils # PT INR D-Dimer ABG pH 7.098 L POC ABG pCO2 72.7 H POC ABG pO2 ABG pO2 162.5 H ABG HCO3 ABG O2 Saturation ABG Base Excess ABG Hemoglobin 10.1 L ABG Oxyhemoglobin ABG Sodium ABG Potassium 5.7 H ABG Glucose Oxyhemoglobin Carboxyhemoglobin 0.4 L Sodium Potassium Chloride Carbon Dioxide BUN Creatinine Glucose POC Glucose 156 H Hemoglobin A1c Calcium Phosphorus Magnesium Lactate Dehydrogenase C-Reactive Protein Total Protein Albumin Triglycerides Arterial Blood Glucose Arterial Blood Ionized Calcium Urine Creatinine Random Vancomycin Coronavirus (PCR) 03/16/21 03/16/21 03/16/21 05:00 05:30 05:30 WBC 16.7 H RBC 3.59 L Hgb 9.6 L Hct 30.1 L MCH 27 L RDW 17.5 H Plt Count Lymph % (Auto) [place] # (Auto) Seg Neutrophils % Seg Neutrophils # PT INR D-Dimer ABG pH POC ABG pCO2 POC ABG pO2 ABG pO2 ABG HCO3 ABG O2 Saturation ABG Base Excess ABG Hemoglobin ABG Oxyhemoglobin ABG Sodium ABG Potassium ABG Glucose Oxyhemoglobin Carboxyhemoglobin Sodium Potassium Chloride Carbon Dioxide BUN 46 H Creatinine 6.2 H Glucose 131 H POC Glucose Hemoglobin A1c Calcium Phosphorus 6.00 H D Magnesium Lactate Dehydrogenase 318 H C-Reactive Protein 18.60 H Total Protein Albumin 3.0 L Triglycerides Arterial Blood Glucose Arterial Blood Ionized Calcium Urine Creatinine Random Vancomycin Coronavirus (PCR) 03/16/21 03/16/21 03/16/21 05:51 06:37 08:58 WBC RBC Hgb Hct MCH RDW Plt Count Lymph % (Auto) [place] # (Auto) Seg Neutrophils % Seg Neutrophils # PT INR D-Dimer 3041.12 H ABG pH POC ABG pCO2 POC ABG pO2 ABG pO2 141.5 H ABG HCO3 ABG O2 Saturation ABG Base Excess ABG Hemoglobin 9.7 L ABG Oxyhemoglobin ABG Sodium ABG Potassium ABG Glucose Oxyhemoglobin Carboxyhemoglobin Sodium Potassium Chloride Carbon Dioxide BUN Creatinine Glucose POC Glucose 126 H Hemoglobin A1c Calcium Phosphorus Magnesium Lactate Dehydrogenase C-Reactive Protein Total Protein Albumin Triglycerides Arterial Blood Glucose Arterial Blood Ionized Calcium Urine Creatinine Random Vancomycin Coronavirus (PCR) 03/16/21 03/16/21 03/16/21 12:11 16:51 21:00 WBC RBC Hgb Hct MCH RDW Plt Count Lymph % (Auto) [place] # (Auto) Seg Neutrophils % Seg Neutrophils # PT INR D-Dimer ABG pH 7.239 L POC ABG pCO2 61.5 H POC ABG pO2 80.8 L ABG pO2 ABG HCO3 ABG O2 Saturation ABG Base Excess ABG Hemoglobin 11.4 L ABG Oxyhemoglobin 93.5 L ABG Sodium ABG Potassium 5.4 H ABG Glucose 137 H Oxyhemoglobin Carboxyhemoglobin 0.2 L Sodium Potassium Chloride Carbon Dioxide BUN Creatinine Glucose POC Glucose 156 H 133 H Hemoglobin A1c Calcium Phosphorus Magnesium Lactate Dehydrogenase C-Reactive Protein Total Protein Albumin Triglycerides Arterial Blood Glucose 137 H Arterial Blood Ionized Calcium Urine Creatinine Random Vancomycin Coronavirus (PCR) 03/16/21 03/17/21 03/17/21 23:42 05:23 05:23 WBC 18.4 H RBC Hgb Hct MCH 27 L RDW 17.4 H Plt Count Lymph % (Auto) [place] # (Auto) Seg Neutrophils % Seg Neutrophils # PT INR D-Dimer ABG pH POC ABG pCO2 POC ABG pO2 ABG pO2 ABG HCO3 ABG O2 Saturation ABG Base Excess ABG Hemoglobin ABG Oxyhemoglobin ABG Sodium ABG Potassium ABG Glucose Oxyhemoglobin Carboxyhemoglobin Sodium Potassium 5.2 H Chloride Carbon Dioxide 21 L BUN 79 H Creatinine 8.6 H Glucose 124 H POC Glucose 133 H Hemoglobin A1c Calcium Phosphorus Magnesium Lactate Dehydrogenase C-Reactive Protein Total Protein Albumin 3.2 L Triglycerides 285 H Arterial Blood Glucose Arterial Blood Ionized Calcium Urine Creatinine Random Vancomycin Coronavirus (PCR) 03/17/21 03/17/21 03/17/21 05:23 10:48 12:20 WBC RBC Hgb Hct MCH RDW Plt Count Lymph % (Auto) [place] # (Auto) Seg Neutrophils % Seg Neutrophils # PT INR D-Dimer ABG pH 7.294 L POC ABG pCO2 POC ABG pO2 ABG pO2 90.3 H ABG HCO3 ABG O2 Saturation ABG Base Excess ABG Hemoglobin 9.9 L ABG Oxyhemoglobin ABG Sodium ABG Potassium ABG Glucose Oxyhemoglobin Carboxyhemoglobin Sodium Potassium 5.2 H Chloride Carbon Dioxide 21 L BUN 79 H Creatinine 8.4 H Glucose 125 H POC Glucose 171 H Hemoglobin A1c Calcium Phosphorus 9.90 H D Magnesium 2.40 H Lactate Dehydrogenase C-Reactive Protein Total Protein Albumin Triglycerides Arterial Blood Glucose Arterial Blood Ionized Calcium Urine Creatinine Random Vancomycin Coronavirus (PCR) 03/17/21 03/17/21 03/18/21 17:24 21:00 04:30 WBC RBC Hgb Hct MCH RDW Plt Count Lymph % (Auto) [place] # (Auto) Seg Neutrophils % Seg Neutrophils # PT INR D-Dimer 9953.09 H ABG pH 7.310 L POC ABG pCO2 54.5 H POC ABG pO2 62.3 L ABG pO2 ABG HCO3 ABG O2 Saturation ABG Base Excess ABG Hemoglobin 10.2 L ABG Oxyhemoglobin 88.6 L ABG Sodium ABG Potassium 4.7 H ABG Glucose 99 H Oxyhemoglobin Carboxyhemoglobin 0.3 L Sodium Potassium Chloride Carbon Dioxide BUN Creatinine Glucose POC Glucose 121 H Hemoglobin A1c Calcium Phosphorus Magnesium Lactate Dehydrogenase C-Reactive Protein Total Protein Albumin Triglycerides Arterial Blood Glucose 99 H Arterial Blood Ionized Calcium 4.3 L Urine Creatinine Random Vancomycin Coronavirus (PCR) 03/18/21 03/18/21 03/18/21 04:30 04:30 11:34 WBC 12.8 H RBC 3.49 L Hgb 9.4 L Hct 29.3 L MCH 27 L RDW 17.4 H Plt Count Lymph % (Auto) [place] # (Auto) Seg Neutrophils % Seg Neutrophils # PT INR D-Dimer ABG pH POC ABG pCO2 POC ABG pO2 ABG pO2 ABG HCO3 ABG O2 Saturation ABG Base Excess ABG Hemoglobin ABG Oxyhemoglobin ABG Sodium ABG Potassium ABG Glucose Oxyhemoglobin Carboxyhemoglobin Sodium Potassium Chloride Carbon Dioxide BUN 69 H Creatinine 7.3 H Glucose POC Glucose 114 H Hemoglobin A1c Calcium 8.2 L Phosphorus 7.60 H D Magnesium Lactate Dehydrogenase 477 H C-Reactive Protein 6.90 H Total Protein Albumin Triglycerides Arterial Blood Glucose Arterial Blood Ionized Calcium Urine Creatinine Random Vancomycin Coronavirus (PCR) 03/18/21 03/19/21 03/19/21 21:44 04:13 04:13 WBC 13.7 H RBC 3.32 L Hgb 9.0 L Hct 28.1 L MCH 27 L RDW 16.9 H Plt Count Lymph % (Auto) [place] # (Auto) Seg Neutrophils % Seg Neutrophils # PT INR D-Dimer ABG pH 7.290 L POC ABG pCO2 POC ABG pO2 ABG pO2 119.7 H ABG HCO3 28.0 H ABG O2 Saturation ABG Base Excess ABG Hemoglobin 9.6 L ABG Oxyhemoglobin ABG Sodium ABG Potassium ABG Glucose Oxyhemoglobin Carboxyhemoglobin Sodium Potassium Chloride Carbon Dioxide BUN Creatinine Glucose POC Glucose Hemoglobin A1c Calcium Phosphorus Magnesium Lactate Dehydrogenase C-Reactive Protein Total Protein Albumin Triglycerides Arterial Blood Glucose Arterial Blood Ionized Calcium Urine Creatinine Random Vancomycin 43.5 H Coronavirus (PCR) 03/19/21 03/19/21 03/19/21 04:13 05:59 11:40 WBC RBC Hgb Hct MCH RDW Plt Count Lymph % (Auto) [place] # (Auto) Seg Neutrophils % Seg Neutrophils # PT INR D-Dimer ABG pH POC ABG pCO2 POC ABG pO2 ABG pO2 ABG HCO3 ABG O2 Saturation ABG Base Excess ABG Hemoglobin ABG Oxyhemoglobin ABG Sodium ABG Potassium ABG Glucose Oxyhemoglobin Carboxyhemoglobin Sodium Potassium Chloride Carbon Dioxide BUN 55 H Creatinine 7.0 H Glucose POC Glucose 116 H 145 H Hemoglobin A1c Calcium 8.1 L Phosphorus 7.90 H Magnesium Lactate Dehydrogenase C-Reactive Protein Total Protein Albumin Triglycerides Arterial Blood Glucose Arterial Blood Ionized Calcium Urine Creatinine Random Vancomycin Coronavirus (PCR) 03/19/21 03/19/21 03/20/21 17:01 23:41 04:00 WBC 15.6 H RBC 3.55 L Hgb 9.6 L Hct MCH 27 L RDW 16.8 H Plt Count 139 L Lymph % (Auto) [place] # (Auto) Seg Neutrophils % Seg Neutrophils # PT INR D-Dimer ABG pH POC ABG pCO2 POC ABG pO2 ABG pO2 ABG HCO3 ABG O2 Saturation ABG Base Excess ABG Hemoglobin ABG Oxyhemoglobin ABG Sodium ABG Potassium ABG Glucose Oxyhemoglobin Carboxyhemoglobin Sodium Potassium Chloride Carbon Dioxide BUN Creatinine Glucose POC Glucose 111 H 118 H Hemoglobin A1c Calcium Phosphorus Magnesium Lactate Dehydrogenase C-Reactive Protein Total Protein Albumin Triglycerides Arterial Blood Glucose Arterial Blood Ionized Calcium Urine Creatinine Random Vancomycin Coronavirus (PCR) 03/20/21 03/20/21 03/20/21 04:00 04:00 04:37 WBC RBC Hgb Hct MCH RDW Plt Count Lymph % (Auto) [place] # (Auto) Seg Neutrophils % Seg Neutrophils # PT INR D-Dimer > 21039 H ABG pH 7.306 L POC ABG pCO2 POC ABG pO2 ABG pO2 ABG HCO3 27.9 H ABG O2 Saturation ABG Base Excess ABG Hemoglobin 5.2 L ABG Oxyhemoglobin ABG Sodium ABG Potassium ABG Glucose Oxyhemoglobin Carboxyhemoglobin Sodium Potassium 5.2 H Chloride 97.6 L Carbon Dioxide BUN 52 H Creatinine 6.2 H Glucose 104 H POC Glucose Hemoglobin A1c Calcium Phosphorus 8.60 H Magnesium Lactate Dehydrogenase C-Reactive Protein 6.90 H Total Protein Albumin Triglycerides Arterial Blood Glucose Arterial Blood Ionized Calcium Urine Creatinine Random Vancomycin Coronavirus (PCR) 03/20/21 03/20/21 03/20/21 13:50 17:46 17:56 WBC RBC Hgb Hct MCH RDW Plt Count Lymph % (Auto) [place] # (Auto) Seg Neutrophils % Seg Neutrophils # PT INR D-Dimer ABG pH POC ABG pCO2 POC ABG pO2 ABG pO2 ABG HCO3 ABG O2 Saturation ABG Base Excess ABG Hemoglobin ABG Oxyhemoglobin ABG Sodium ABG Potassium ABG Glucose Oxyhemoglobin Carboxyhemoglobin Sodium Potassium Chloride Carbon Dioxide BUN 63 H 43 H Creatinine Glucose POC Glucose 145 H Hemoglobin A1c Calcium Phosphorus Magnesium Lactate Dehydrogenase C-Reactive Protein Total Protein Albumin Triglycerides Arterial Blood Glucose Arterial Blood Ionized Calcium Urine Creatinine Random Vancomycin Coronavirus (PCR) 03/20/21 03/21/21 03/21/21 23:18 06:58 06:58 WBC 14.4 H RBC 3.41 L Hgb 9.5 L Hct 28.6 L MCH RDW 17.4 H Plt Count 107 L Lymph % (Auto) [place] # (Auto) Seg Neutrophils % Seg Neutrophils # PT INR D-Dimer ABG pH POC ABG pCO2 POC ABG pO2 ABG pO2 ABG HCO3 ABG O2 Saturation ABG Base Excess ABG Hemoglobin ABG Oxyhemoglobin ABG Sodium ABG Potassium ABG Glucose Oxyhemoglobin Carboxyhemoglobin Sodium Potassium Chloride Carbon Dioxide BUN 60 H Creatinine 7.7 H Glucose POC Glucose 106 H Hemoglobin A1c Calcium Phosphorus Magnesium Lactate Dehydrogenase C-Reactive Protein Total Protein Albumin Triglycerides Arterial Blood Glucose Arterial Blood Ionized Calcium Urine Creatinine Random Vancomycin Coronavirus (PCR) 03/21/21 03/21/21 03/21/21 11:11 18:04 Unknown WBC RBC Hgb Hct MCH RDW Plt Count Lymph % (Auto) [place] # (Auto) Seg Neutrophils % Seg Neutrophils # PT INR D-Dimer ABG pH 7.270 L POC ABG pCO2 58.7 H POC ABG pO2 76.9 L ABG pO2 ABG HCO3 ABG O2 Saturation ABG Base Excess ABG Hemoglobin 9.9 L ABG Oxyhemoglobin 92.4 L ABG Sodium 135.8 L ABG Potassium 4.6 H ABG Glucose Oxyhemoglobin Carboxyhemoglobin 0.1 L Sodium Potassium Chloride Carbon Dioxide BUN Creatinine Glucose POC Glucose 109 H 141 H Hemoglobin A1c Calcium Phosphorus Magnesium Lactate Dehydrogenase C-Reactive Protein Total Protein Albumin Triglycerides Arterial Blood Glucose Arterial Blood Ionized Calcium 4.5 L Urine Creatinine Random Vancomycin Coronavirus (PCR) 03/22/21 03/22/21 03/22/21 03:09 07:10 10:00 WBC RBC Hgb Hct MCH RDW Plt Count Lymph % (Auto) [place] # (Auto) Seg Neutrophils % Seg Neutrophils # PT INR D-Dimer ABG pH 7.206 L 7.245 L POC ABG pCO2 55.6 H POC ABG pO2 ABG pO2 90.6 H ABG HCO3 ABG O2 Saturation ABG Base Excess -4.4 L ABG Hemoglobin 9.0 L 8.4 L ABG Oxyhemoglobin ABG Sodium 123.4 L ABG Potassium 5.6 H ABG Glucose 106 H Oxyhemoglobin 94.5 L Carboxyhemoglobin 0.1 L Sodium Potassium 5.4 H Chloride 96.8 L Carbon Dioxide BUN 89 H Creatinine 8.7 H Glucose 131 H POC Glucose Hemoglobin A1c Calcium Phosphorus Magnesium Lactate Dehydrogenase C-Reactive Protein 9.40 H Total Protein Albumin Triglycerides Arterial Blood Glucose 106 H Arterial Blood Ionized Calcium Urine Creatinine Random Vancomycin Coronavirus (PCR) 03/22/21 03/22/21 03/22/21 10:00 12:37 13:19 WBC RBC 3.05 L Hgb 8.4 L Hct 25.5 L MCH RDW 17.5 H Plt Count 108 L Lymph % (Auto) [place] # (Auto) Seg Neutrophils % Seg Neutrophils # PT INR D-Dimer ABG pH POC ABG pCO2 POC ABG pO2 ABG pO2 ABG HCO3 ABG O2 Saturation ABG Base Excess ABG Hemoglobin ABG Oxyhemoglobin ABG Sodium ABG Potassium ABG Glucose Oxyhemoglobin Carboxyhemoglobin Sodium Potassium Chloride Carbon Dioxide BUN Creatinine 8.7 H Glucose POC Glucose 140 H Hemoglobin A1c Calcium Phosphorus Magnesium Lactate Dehydrogenase C-Reactive Protein Total Protein Albumin Triglycerides Arterial Blood Glucose Arterial Blood Ionized Calcium Urine Creatinine Random Vancomycin Coronavirus (PCR) 03/22/21 03/22/21 03/22/21 13:40 17:14 18:21 WBC RBC Hgb Hct MCH RDW Plt Count Lymph % (Auto) [place] # (Auto) Seg Neutrophils % Seg Neutrophils # PT 15.8 H INR 1.14 H D-Dimer > 17792 H ABG pH POC ABG pCO2 POC ABG pO2 ABG pO2 ABG HCO3 ABG O2 Saturation ABG Base Excess ABG Hemoglobin ABG Oxyhemoglobin ABG Sodium ABG Potassium ABG Glucose Oxyhemoglobin Carboxyhemoglobin Sodium Potassium Chloride Carbon Dioxide BUN Creatinine Glucose POC Glucose 117 H 112 H Hemoglobin A1c Calcium Phosphorus Magnesium Lactate Dehydrogenase C-Reactive Protein Total Protein Albumin Triglycerides Arterial Blood Glucose Arterial Blood Ionized Calcium Urine Creatinine Random Vancomycin Coronavirus (PCR) 03/22/21 03/22/21 03/23/21 21:25 22:57 04:30 WBC RBC Hgb Hct MCH RDW Plt Count Lymph % (Auto) [place] # (Auto) Seg Neutrophils % Seg Neutrophils # PT INR D-Dimer ABG pH 7.188 L* POC ABG pCO2 POC ABG pO2 ABG pO2 97.9 H ABG HCO3 ABG O2 Saturation ABG Base Excess -3.7 L ABG Hemoglobin 9.2 L ABG Oxyhemoglobin ABG Sodium ABG Potassium ABG Glucose Oxyhemoglobin 94.4 L Carboxyhemoglobin Sodium Potassium Chloride Carbon Dioxide BUN Creatinine Glucose POC Glucose 106 H Hemoglobin A1c Calcium Phosphorus Magnesium Lactate Dehydrogenase C-Reactive Protein Total Protein Albumin Triglycerides 381 H Arterial Blood Glucose Arterial Blood Ionized Calcium Urine Creatinine Random Vancomycin Coronavirus (PCR) 03/23/21 03/23/21 03/23/21 04:30 04:30 05:37 WBC 20.1 H RBC 3.17 L Hgb 8.6 L Hct 27.2 L MCH 27 L RDW 17.4 H Plt Count 118 L Lymph % (Auto) [place] # (Auto) Seg Neutrophils % Seg Neutrophils # PT INR D-Dimer ABG pH POC ABG pCO2 POC ABG pO2 ABG pO2 ABG HCO3 ABG O2 Saturation ABG Base Excess ABG Hemoglobin ABG Oxyhemoglobin ABG Sodium ABG Potassium ABG Glucose Oxyhemoglobin Carboxyhemoglobin Sodium Potassium 5.2 H Chloride 97.1 L Carbon Dioxide 21 L BUN 82 H Creatinine 9.1 H Glucose 109 H POC Glucose 130 H Hemoglobin A1c Calcium Phosphorus 10.80 H Magnesium 3.50 H Lactate Dehydrogenase C-Reactive Protein Total Protein Albumin Triglycerides Arterial Blood Glucose Arterial Blood Ionized Calcium Urine Creatinine Random Vancomycin Coronavirus (PCR) 03/23/21 03/23/21 03/23/21 08:44 11:30 16:09 WBC RBC Hgb Hct MCH RDW Plt Count Lymph % (Auto) [place] # (Auto) Seg Neutrophils % Seg Neutrophils # PT INR D-Dimer ABG pH 7.190 L POC ABG pCO2 57.9 H POC ABG pO2 79.2 L ABG pO2 ABG HCO3 ABG O2 Saturation ABG Base Excess ABG Hemoglobin 11.8 L ABG Oxyhemoglobin 92.3 L ABG Sodium 131.0 L ABG Potassium 5.0 H ABG Glucose 122 H Oxyhemoglobin Carboxyhemoglobin 0.4 L Sodium Potassium Chloride Carbon Dioxide BUN Creatinine Glucose POC Glucose 129 H 148 H Hemoglobin A1c Calcium Phosphorus Magnesium Lactate Dehydrogenase C-Reactive Protein Total Protein Albumin Triglycerides Arterial Blood Glucose 122 H Arterial Blood Ionized Calcium 4.4 L Urine Creatinine Random Vancomycin Coronavirus (PCR) 03/23/21 03/24/2121 21:00 03:35 04:00 WBC 17.8 H RBC 2.96 L Hgb 8.1 L Hct 25.0 L MCH 27 L RDW 17.7 H Plt Count 124 L Lymph % (Auto) [place] # (Auto) Seg Neutrophils % Seg Neutrophils # PT INR D-Dimer ABG pH 7.223 L POC ABG pCO2 50.3 H POC ABG pO2 114.4 H ABG pO2 ABG HCO3 ABG O2 Saturation ABG Base Excess ABG Hemoglobin 8.8 L ABG Oxyhemoglobin ABG Sodium 130.4 L ABG Potassium 5.1 H ABG Glucose 126 H Oxyhemoglobin Carboxyhemoglobin 0.2 L Sodium Potassium Chloride Carbon Dioxide BUN Creatinine Glucose POC Glucose 148 H Hemoglobin A1c Calcium Phosphorus Magnesium Lactate Dehydrogenase C-Reactive Protein Total Protein Albumin Triglycerides Arterial Blood Glucose 126 H Arterial Blood Ionized Calcium 4.4 L Urine Creatinine Random Vancomycin Coronavirus (PCR) 03/24/21 03/24/21 03/24/21 04:00 06:49 12:29 WBC RBC Hgb Hct MCH RDW Plt Count Lymph % (Auto) [place] # (Auto) Seg Neutrophils % Seg Neutrophils # PT INR D-Dimer ABG pH POC ABG pCO2 POC ABG pO2 ABG pO2 ABG HCO3 ABG O2 Saturation ABG Base Excess ABG Hemoglobin ABG Oxyhemoglobin ABG Sodium ABG Potassium ABG Glucose Oxyhemoglobin Carboxyhemoglobin Sodium Potassium Chloride 95.6 L Carbon Dioxide 20 L BUN 108 H Creatinine 10.8 H Glucose 155 H POC Glucose 136 H 142 H Hemoglobin A1c Calcium Phosphorus Magnesium Lactate Dehydrogenase C-Reactive Protein Total Protein Albumin Triglycerides Arterial Blood Glucose Arterial Blood Ionized Calcium Urine Creatinine Random Vancomycin Coronavirus (PCR) 03/24/21 03/25/21 03/25/21 21:35 00:15 05:51 WBC RBC Hgb Hct MCH RDW Plt Count Lymph % (Auto) [place] # (Auto) Seg Neutrophils % Seg Neutrophils # PT INR D-Dimer ABG pH 7.241 L POC ABG pCO2 POC ABG pO2 ABG pO2 72.4 L ABG HCO3 ABG O2 Saturation 90.3 L ABG Base Excess ABG Hemoglobin 7.9 L ABG Oxyhemoglobin ABG Sodium ABG Potassium ABG Glucose Oxyhemoglobin 88.4 L Carboxyhemoglobin Sodium Potassium Chloride Carbon Dioxide BUN Creatinine Glucose POC Glucose 110 H 121 H Hemoglobin A1c Calcium Phosphorus Magnesium Lactate Dehydrogenase C-Reactive Protein Total Protein Albumin Triglycerides Arterial Blood Glucose Arterial Blood Ionized Calcium Urine Creatinine Random Vancomycin Coronavirus (PCR) 03/25/21 03/25/21 03/25/21 05:54 05:54 12:21 WBC 12.4 H RBC 2.52 L Hgb 6.9 L Hct 21.1 L MCH RDW 17.4 H Plt Count 102 L Lymph % (Auto) [place] # (Auto) Seg Neutrophils % Seg Neutrophils # PT INR D-Dimer ABG pH POC ABG pCO2 POC ABG pO2 ABG pO2 ABG HCO3 ABG O2 Saturation ABG Base Excess ABG Hemoglobin ABG Oxyhemoglobin ABG Sodium ABG Potassium ABG Glucose Oxyhemoglobin Carboxyhemoglobin Sodium Potassium Chloride 96.7 L Carbon Dioxide BUN 81 H Creatinine 8.1 H Glucose 116 H POC Glucose 138 H Hemoglobin A1c Calcium 8.2 L Phosphorus Magnesium Lactate Dehydrogenase C-Reactive Protein Total Protein Albumin Triglycerides Arterial Blood Glucose Arterial Blood Ionized Calcium Urine Creatinine Random Vancomycin Coronavirus (PCR) 03/25/21 Unknown WBC 12.4 H RBC 2.49 L Hgb 6.8 L Hct 20.9 L MCH 27 L RDW 18.0 H Plt Count 107 L Lymph % (Auto) [place] # (Auto) Seg Neutrophils % Seg Neutrophils # PT INR D-Dimer ABG pH POC ABG pCO2 POC ABG pO2 ABG pO2 ABG HCO3 ABG O2 Saturation ABG Base Excess ABG Hemoglobin ABG Oxyhemoglobin ABG Sodium ABG Potassium ABG Glucose Oxyhemoglobin Carboxyhemoglobin Sodium Potassium Chloride Carbon Dioxide BUN Creatinine Glucose POC Glucose Hemoglobin A1c Calcium Phosphorus Magnesium Lactate Dehydrogenase C-Reactive Protein Total Protein Albumin Triglycerides Arterial Blood Glucose Arterial Blood Ionized Calcium Urine Creatinine Random Vancomycin Coronavirus (PCR) Chest x-ray: pending Allied health notes reviewed: nursing
--- NOTE | 2021-03-25 14:48 | Progress Note ---
Assessment and Plan Cultures: SARS CoV2 PCR: Positive 03/13/2021 blood culture: No growth Rest cultures: Staph aureus A/P: 31-year-old female with asthma, morbid obesity, Crohn's disease admitted with cough and shortness of breath: #Bilateral pneumonia: Secondary to COVID-19. Severe disease. CRP has worsened to 12.1. Procalcitonin 0.05. #Acute hypoxic respiratory failure: Requiring on the vent #Acute renal failure: Now on HD, may need CRRT #Acute asthma exacerbation #Morbid obesity Recs: -Actemra given 03/15/2021 per pharmacy notes. -prophylactic anticoagulation based on d-dimer per hospital protocol -Continue cefazolin 2g q24h. Planned 8 days. Her size makes dosing difficult. -Follow up new resp/blood cultures -trend d-dimer, CRP every 2-3 days -poor prognosis Champ Ling MD [facility] O: [phone] F: [phone] Subjective Date of service: 03/25/21 Principal diagnosis: Ac hypoxemic resp failure; AE-Asthma; SAI; Crohn's; COVID- 19; Pneumonia Interval history: Afebrile, white count improving. Objective - Exam Narrative Exam: Physical exam deferred to reduce risk of transmission of COVID-19. Please refer to primary team's note. - Constitutional Vitals: Vital Signs Temp Pulse Resp BP Pulse Ox 100.3 F H 118 H 34 H 130/52 99 03/25/21 11:30 03/25/21 14:45 03/25/21 14:31 03/25/21 14:45 03/25/21 14:31 Temperature -Last 24 Hours Temperature 100.3 F Temperature 100.3 F Temperature 100.2 F Temperature 99.4 F Temperature 101.4 F Temperature 101.4 F Temperature 98.1 F - Labs CBC & Chem 7: 03/25/21 Unknown 03/25/21 05:54 Labs: Abnormal lab results 03/24/21 03/25/21 03/25/21 Range/Units 21:35 00:15 05:51 WBC (4.5-11.0) K/mm3 RBC (3.65-5.03) M/mm3 Hgb (10.1-14.3) gm/dl Hct (30.3-42.9) % MCH (28-32) pg RDW (13.2-15.2) % Plt Count (140-440) K/mm3 ABG pH 7.241 L (7.350-7.450) pH Units ABG pO2 72.4 L (80.0-90.0) mm Hg ABG O2 Saturation 90.3 L (95.0-99.0) % ABG Hemoglobin 7.9 L (12.0-16.0) gm/dl Oxyhemoglobin 88.4 L (95.0-99.0) % Chloride (98-107) mmol/L BUN (7-17) mg/dL Creatinine (0.6-1.2) mg/dL Glucose (65-100) mg/dL POC Glucose 110 H 121 H (70-105) mg/dL Calcium (8.4-10.2) mg/dL 03/25/21 03/25/21 03/25/21 Range/Units 05:54 05:54 12:21 WBC 12.4 H (4.5-11.0) K/mm3 RBC 2.52 L (3.65-5.03) M/mm3 Hgb 6.9 L (10.1-14.3) gm/dl Hct 21.1 L (30.3-42.9) % MCH (28-32) pg RDW 17.4 H (13.2-15.2) % Plt Count 102 L (140-440) K/mm3 ABG pH (7.350-7.450) pH Units ABG pO2 (80.0-90.0) mm Hg ABG O2 Saturation (95.0-99.0) % ABG Hemoglobin (12.0-16.0) gm/dl Oxyhemoglobin (95.0-99.0) % Chloride 96.7 L (98-107) mmol/L BUN 81 H (7-17) mg/dL Creatinine 8.1 H (0.6-1.2) mg/dL Glucose 116 H (65-100) mg/dL POC Glucose 138 H (70-105) mg/dL Calcium 8.2 L (8.4-10.2) mg/dL 03/25/21 Range/Units Unknown WBC 12.4 H (4.5-11.0) K/mm3 RBC 2.49 L (3.65-5.03) M/mm3 Hgb 6.8 L (10.1-14.3) gm/dl Hct 20.9 L (30.3-42.9) % MCH 27 L (28-32) pg RDW 18.0 H (13.2-15.2) % Plt Count 107 L (140-440) K/mm3 ABG pH (7.350-7.450) pH Units ABG pO2 (80.0-90.0) mm Hg ABG O2 Saturation (95.0-99.0) % ABG Hemoglobin (12.0-16.0) gm/dl Oxyhemoglobin (95.0-99.0) % Chloride (98-107) mmol/L BUN (7-17) mg/dL Creatinine (0.6-1.2) mg/dL Glucose (65-100) mg/dL POC Glucose (70-105) mg/dL Calcium (8.4-10.2) mg/dL
--- NOTE | 2021-03-25 16:28 | Progress Note ---
Assessment and Plan #Acute kidney injury: dialysis dependent Continue daily HD for now Strict input and output Avoid nephrotoxin Renally dose medications Keep MAP > 65 # Hyperkalemia, controlled with HD #Respiratory failure Covid 19 infection currently intubated UF as tolerated with HD, will be limited by hemodynamic instability #Hyperphosphatemia to be monitored Dialysis has been initiated #Hyponatremia: Improved with HD #Overall prognosis remains guarded Subjective Date of service: 03/25/21 Principal diagnosis: Ac hypoxemic resp failure; AE-Asthma; SAI; Crohn's; COVID- 19; Pneumonia Interval history: Remains intubated. Seen during HD. Objective - Exam Narrative Exam: General: NAD HEENT: Oral mucosa moist Neck: Supple, no JVD Chest: Intubated Heart: RRR, S1 and S2, no pericardial rub Abdomen: Soft, nontender, no renal bruit Extremity: No peripheral cyanosis, edema Neurological: Eyes open but not following commands Dermatology: No skin rash Psych: Unable to assess Musculoskeletal: No joint effusion - Vital Signs Vital signs: Vital Signs - 12hr 03/25/21 03/25/21 03/25/21 04:30 05:00 05:05 Temperature Pulse Rate 104 H 106 H 105 H Pulse Rate [ From Monitor] Respiratory 25 H 27 H Rate Blood Pressure 122/43 118/45 118/45 O2 Sat by Pulse 98 98 95 Oximetry O2 Sat by Pulse Oximetry [ Anterior Bilateral Throughout] O2 Sat by Pulse Oximetry [ Bilateral] 03/25/21 03/25/21 03/25/21 05:30 06:00 06:30 Temperature Pulse Rate 105 H 100 H 106 H Pulse Rate [ From Monitor] Respiratory 20 11 L 13 Rate Blood Pressure 122/51 120/40 119/49 O2 Sat by Pulse 97 98 94 Oximetry O2 Sat by Pulse Oximetry [ Anterior Bilateral Throughout] O2 Sat by Pulse Oximetry [ Bilateral] 03/25/21 03/25/21 03/25/21 07:00 07:30 08:00 Temperature 100.3 F H Pulse Rate 104 H 105 H 104 H Pulse Rate [ 102 H From Monitor] Respiratory 14 12 24 Rate Blood Pressure 111/42 112/36 115/40 O2 Sat by Pulse 94 98 97 Oximetry O2 Sat by Pulse Oximetry [ Anterior Bilateral Throughout] O2 Sat by Pulse Oximetry [ Bilateral] 03/25/21 03/25/21 03/25/21 08:30 08:47 09:00 Temperature Pulse Rate 104 H 106 H 105 H Pulse Rate [ From Monitor] Respiratory 24 27 H Rate Blood Pressure 105/38 113/39 109/44 O2 Sat by Pulse 98 95 97 Oximetry O2 Sat by Pulse Oximetry [ Anterior Bilateral Throughout] O2 Sat by Pulse Oximetry [ Bilateral] 03/25/21 03/25/21 03/25/21 09:30 10:00 10:30 Temperature Pulse Rate 107 H 106 H 105 H Pulse Rate [ From Monitor] Respiratory 28 H 26 H 26 H Rate Blood Pressure 111/39 113/37 110/41 O2 Sat by Pulse 97 95 Oximetry O2 Sat by Pulse Oximetry [ Anterior Bilateral Throughout] O2 Sat by Pulse Oximetry [ Bilateral] 03/25/21 03/25/21 03/25/21 11:00 11:30 11:45 Temperature 100.3 F H Pulse Rate 105 H 105 H 112 H Pulse Rate [ From Monitor] Respiratory 29 H 26 H Rate Blood Pressure 120/44 99/42 99/52 O2 Sat by Pulse 97 97 Oximetry O2 Sat by Pulse 95 Oximetry [ Anterior Bilateral Throughout] O2 Sat by Pulse 95 Oximetry [ Bilateral] 03/25/21 03/25/21 03/25/21 12:00 12:01 12:15 Temperature Pulse Rate 112 H 111 H 110 H Pulse Rate [ 104 H From Monitor] Respiratory 30 H Rate Blood Pressure 125/53 125/53 139/71 O2 Sat by Pulse 95 94 Oximetry O2 Sat by Pulse Oximetry [ Anterior Bilateral Throughout] O2 Sat by Pulse Oximetry [ Bilateral] 03/25/21 03/25/21 03/25/21 12:30 12:31 12:45 Temperature Pulse Rate 104 H 111 H 112 H Pulse Rate [ From Monitor] Respiratory 23 Rate Blood Pressure 132/81 132/81 141/83 O2 Sat by Pulse 92 Oximetry O2 Sat by Pulse Oximetry [ Anterior Bilateral Throughout] O2 Sat by Pulse Oximetry [ Bilateral] 03/25/21 03/25/21 03/25/21 13:00 13:01 13:15 Temperature Pulse Rate 116 H 122 H 119 H Pulse Rate [ From Monitor] Respiratory 20 Rate Blood Pressure 156/81 156/81 151/88 O2 Sat by Pulse 85 Oximetry O2 Sat by Pulse Oximetry [ Anterior Bilateral Throughout] O2 Sat by Pulse Oximetry [ Bilateral] 03/25/21 03/25/21 03/25/21 13:30 13:31 13:45 Temperature Pulse Rate 119 H 120 H 120 H Pulse Rate [ From Monitor] Respiratory 19 Rate Blood Pressure 157/92 157/92 161/80 O2 Sat by Pulse 84 Oximetry O2 Sat by Pulse Oximetry [ Anterior Bilateral Throughout] O2 Sat by Pulse Oximetry [ Bilateral] 03/25/21 03/25/21 03/25/21 14:00 14:01 14:15 Temperature Pulse Rate 117 H 120 H 118 H Pulse Rate [ From Monitor] Respiratory 34 H Rate Blood Pressure 154/64 154/64 129/46 O2 Sat by Pulse 93 Oximetry O2 Sat by Pulse Oximetry [ Anterior Bilateral Throughout] O2 Sat by Pulse Oximetry [ Bilateral] 03/25/21 03/25/21 03/25/21 14:30 14:31 14:45 Temperature Pulse Rate 121 H 118 H 118 H Pulse Rate [ From Monitor] Respiratory 34 H Rate Blood Pressure 128/44 128/44 130/52 O2 Sat by Pulse 99 Oximetry O2 Sat by Pulse Oximetry [ Anterior Bilateral Throughout] O2 Sat by Pulse Oximetry [ Bilateral] 03/25/21 15:01 Temperature 99.9 F H Pulse Rate 115 H Pulse Rate [ From Monitor] Respiratory 32 H Rate Blood Pressure 121/44 O2 Sat by Pulse Oximetry O2 Sat by Pulse 97 Oximetry [ Anterior Bilateral Throughout] O2 Sat by Pulse 97 Oximetry [ Bilateral] - Lab 03/25/21 Unknown 03/25/21 05:54 Most recent lab results ABG pH 7.241 pH Units (7.350-7.450) L 03/24/21 21:35 ABG pCO2 61.9 mm Hg 03/24/21 21:35 ABG pO2 72.4 mm Hg (80.0-90.0) L 03/24/21 21:35 ABG HCO3 26.0 mmol/L (20.0-26.0) 03/24/21 21:35 ABG O2 Saturation 90.3 % (95.0-99.0) L 03/24/21 21:35 Calcium 8.2 mg/dL (8.4-10.2) L 03/25/21 05:54 Phosphorus 10.80 mg/dL (2.5-4.5) H 03/23/21 04:30 Magnesium 3.50 mg/dL (1.7-2.3) H 03/23/21 04:30 Urine Creatinine 40.1 mg/dL (0.1-20.0) H 03/14/21 17:50 Urine Sodium 124 mmol/L 03/14/21 17:50 Medications & Allergies - Medications Allergies/Adverse Reactions: Allergies acetaminophen [From Percocet] Adverse Reaction (Verified 03/13/21 12:45) Swelling hydrocodone bitartrate [From Vicodin] Adverse Reaction (Verified 03/13/21 12:45) Swelling oxycodone HCl [From Percocet] Adverse Reaction (Verified 03/13/21 12:45) Swelling Home Medications: Home Medications Medication Instructions Recorded Confirmed Last Taken Type Chlorhexidine Mouthwash [Peridex] 15 ml MM BID #1 bottle 10/11/20 03/13/21 Unknown Rx Clindamycin [Clindamycin CAP] 300 mg PO Q8H #21 cap 10/11/20 03/13/21 Unknown Rx Naproxen 500 mg PO Q12H PRN #12 tablet 10/11/20 03/13/21 Unknown Rx Butalb/Acetamin/Caff 50-325-40 1 - 2 tab PO Q6HR PRN #15 tab 12/05/20 03/13/21 Unknown Rx [Fioricet 50-325-40] Famotidine [Pepcid] 20 mg PO BID #30 tablet 12/05/20 03/13/21 Unknown Rx Ketorolac [Toradol] 10 mg PO Q8H PRN #20 tablet 12/05/20 03/13/21 Unknown Rx Ondansetron [Zofran Odt] 4 mg PO Q6HR PRN #20 tab.rapdis 12/05/20 03/13/21 Unknown Rx Albuterol Sulfate [Proair 90 mcg IH Q4HR PRN #2 [email or web address] 01/01/21 03/13/21 Unknown Rx Respiclick] Mupirocin [Bactroban 2% OINT] 1 applic TP BID 7 Days #1 tube 01/01/21 03/13/21 Unknown Rx Triamcinolone Aceton 0.1% (Nf) 1 applic TP BID 14 Days #1 tube 01/01/21 03/13/21 Unknown Rx [Kenalog (NF)] predniSONE [Deltasone] 40 mg PO QDAY #8 tab 01/01/21 03/13/21 Unknown Rx Active Medications: Generic Name Dose Route Start Last Admin Trade Name Freq PRN Reason Stop Dose Admin Acetaminophen 650 mg 03/13/21 19:30 Acetaminophen 325 Mg Tab PO Q4H PRN Pain MILD(1-3)/Fever >100.5/SALAS Albuterol 2.5 mg 03/19/21 00:53 Albuterol 2.5 Mg/3 Ml Nebu IH Q4HRT PRN Shortness Of Breath Albuterol/Ipratropium 1 ampul 03/19/21 08:00 03/25/21 13:32 Ipratropium/Albuterol Sulfate 3 Ml Ampul.Neb IH Not Given Q6HRT INSESA Lipase/Protease/Amylase 1 each 03/15/21 11:42 Lipase 10,500/Protease 25,000/Amylase 43,750 (Units) Dr White FEEDTUBE PRN PRN For Clogged Feeding Tube Ascorbic Acid 500 mg 03/14/21 22:00 03/25/21 10:16 Ascorbic Acid 500 Mg Tab PO 500 mg BID INESSA Administration Bisacodyl 10 mg 03/22/21 22:00 03/24/21 21:40 Bisacodyl 10 Mg Rect Supp OK Not Given QHS INESSA Ciprofloxacin/Dexamethasone 1 drops 03/24/21 18:00 03/25/21 14:43 Ciprofloxacin/Dexameth Otic Susp 7.5ml TP 03/29/21 17:59 1 drops QID INESAS Administration Dextrose 50 ml 03/14/21 11:02 03/15/21 11:40 Dextrose 50% In Water (25gm) 50 Ml Syringe IV 50 ml Q30MIN PRN Administration Hypoglycemia Protocol Famotidine 10 mg 03/17/21 22:00 03/25/21 10:16 Famotidine 10 Mg Tab PO 10 mg BID INESSA Administration Fentanyl 50 mcg 03/15/21 10:43 Fentanyl 100 Mcg/2 Ml Inj IV Q10MIN PRN ANALGESIA Hydralazine HCl 10 mg 03/15/21 10:10 03/15/21 10:32 Hydralazine 20 Mg/1 Ml Inj IV 10 mg Q4HR PRN Administration Hypertension Hydrophilic Ointment 1 applic 03/14/21 17:50 Lip Therapy Vaseline TP Q2HR PRN Dry Lips Propofol 1,000 mg in 100 mls @ 4.123 mls/hr 03/15/21 11:00 03/25/21 12:55 Diprivan 10 Mg/Ml IV 25 mcg/kg/min TITR INESSA 20.616 mls/hr Administration Protocol 5 MCG/KG/MIN Fentanyl Citrate 2,000 mcg in 100 mls @ 6.872 mls/hr 03/15/21 11:00 03/25/21 10:16 Fentanyl Drip Premix IV 2 mcg/kg/hr TITR INESSA 13.744 mls/hr Administration Protocol 1 MCG/KG/HR Sodium Chloride 500 mls @ 1 mls/hr 03/16/21 17:19 Nacl 0.9% 500 Ml IV DIRECT PRN ARTERIAL LINE FLUSH Vasopressin 20 unit/ Sodium 101 mls @ 9.09 mls/hr 03/21/21 16:00 03/24/21 08:10 Chloride IV 0 units/min TITR INESSA 0 mls/hr Titration Protocol 0.03 UNITS/MIN Sodium Chloride 100 mls @ 999 mls/hr 03/21/21 20:23 Nacl 0.9% IV KARLOS PRN Hypotension Cefazolin Sodium 2 gm/ Sodium 100 mls @ 200 mls/hr 03/22/21 19:00 03/24/21 18:22 Chloride IV 03/26/21 19:29 200 mls/hr Q24H INESSA Administration Protocol NORepinephrine/NS 8 MG-250 ML 8 mg in 250 mls @ 3.75 mls/hr 03/23/21 11:00 03/24/21 14:31 Norepinephrine/Ns 8 Mg-250 Ml (Double Conc) IV 0 mcg/min TITRATE INESSA 0 mls/hr Titration Protocol 2 MCG/MIN Sodium Chloride 500 mls @ 0 mls/hr 03/25/21 12:04 Nacl 0.9% 500 Ml IV ONCE INESSA As Directed Insulin Human Lispro 0 unit 03/14/21 12:00 03/25/21 12:55 Insulin Lispro 100 Unit/Ml SUB-Q Not Given Q6HR INESSA Protocol Lorazepam 1 mg 03/13/21 19:40 03/18/21 14:11 Lorazepam 2 Mg/Ml Vial IV 1 mg Q4H PRN Administration Anxiety Metoclopramide HCl 5 mg 03/21/21 16:00 03/25/21 15:43 Metoclopramide 10 Mg/2 Ml Inj IV 5 mg Q6H INESSA Administration Multi-Ingred Cream/Lotion/Oil/Oint 1 applic 03/14/21 17:50 Mineral Oil/Petrolatum, White Ophth Oint 3.5 Gm OU Q4HR PRN Dry Eye(s) Ondansetron HCl 4 mg 03/13/21 19:30 03/21/21 12:05 Ondansetron 4 Mg/2 Ml Inj IV 4 mg Q8H PRN Administration Nausea And Vomiting Senna/Docusate Sodium 1 tab 03/14/21 22:00 03/25/21 10:16 Sennosides/Docusate Sodium 8.6/50 Mg Tab FEEDTUBE 1 tab BID INESSA Administration Simple Syrup 15 ml 03/15/21 11:42 Simple Syrup 15 Ml FEEDTUBE PRN PRN Hypoglycemia Simple Syrup 30 ml 03/15/21 11:42 Simple Syrup 15 Ml FEEDTUBE PRN PRN Hypoglycemia Sodium Bicarbonate 325 mg 03/15/21 11:42 03/21/21 17:21 Sodium Bicarbonate 325 Mg Tab FEEDTUBE 325 mg PRN PRN Administration For Clogged Feeding Tube Sodium Chloride 10 ml 03/13/21 22:00 03/25/21 10:17 Sodium Chloride 0.9% 10 Ml Flush Syringe IV 10 ml BID INESSA Administration Sodium Chloride 10 ml 03/13/21 19:30 Sodium Chloride 0.9% 10 Ml Flush Syringe IV PRN PRN LINE FLUSH Zinc Sulfate 220 mg 03/14/21 22:00 03/25/21 10:16 Zinc Sulfate 220 Mg Cap PO 220 mg BID INESSA Administration
[2021-03-25] MEDS: ACETAMINOPHEN 325 MG TAB PO PRN (20:00)
[2021-03-25 21:49] LABS: ABG Base Excess 0.4 mmol/L (-2.0-3.0); ABG HCO3 25.6 mmol/L (20.0-26.0); ABG Methemoglobin 0.4 % (0.0-1.5); ABG Oxygen Saturation 96.4 % (95.0-99.0); ABG PCO2 44.1 mm Hg; ABG PH 7.381 pH Units (7.350-7.450); ABG PO2 70.2 mm Hg (80.0-90.0)
[2021-03-26] MEDS: fentaNYL DRIP Premix 2,000 MCG/100 ML BAG IV SCH ×4 (01:00→20:41)
[2021-03-26] MEDS: IPRATROPIUM/ALBUTEROL SULFATE 3 ML AMPUL.NEB IH SCH ×4 (03:37→20:56)
[2021-03-26] MEDS: METOCLOPRAMIDE 10 MG/2 ML INJ IV SCH ×3 (05:28→09:15)
[2021-03-26] MEDS: INSULIN LISPRO 100 UNIT/ML SUB-Q SCH ×4 (05:35→23:30)
[2021-03-26 05:43] LABS: Hematocrit 23.6 % (30.3-42.9); Hemoglobin 7.6 gm/dl (10.1-14.3); Mean Corpuscular HGB Conc 32 % (30-34); Mean Corpuscular Volume 83 fl (79-97); Platelet Count 116 K/mm3 (140-440); Red Blood Count 2.83 M/mm3 (3.65-5.03); Red Cell Distribution Width 17.1 % (13.2-15.2)
[2021-03-26 05:55] LABS: Calcium 8.2 mg/dL (8.4-10.2)
[2021-03-26] MEDS ORDERED: SODIUM CHLORIDE 0.9% 100 ML IV PRN (09:05)
[2021-03-26] MEDS: CIPROFLOXACIN/DEXAMETH OTIC SUSP 7.5ML TP SCH ×4 (09:14→22:49)
[2021-03-26] MEDS: ASCORBIC ACID 500 MG TAB PO SCH ×2 (09:14→22:51)
[2021-03-26] MEDS: FAMOTIDINE 10 MG TAB PO SCH ×2 (09:14→22:51)
[2021-03-26] MEDS: ZINC SULFATE 220 MG CAP PO SCH ×2 (09:15→22:49)
[2021-03-26 10:03] LABS: ABG Base Excess -1.4 mmol/L (-2.0-3.0); ABG HCO3 23.8 mmol/L (20.0-26.0); ABG Methemoglobin 0.5 % (0.0-1.5); ABG PCO2 42.1 mm Hg; ABG PH 7.37 pH Units (7.350-7.450); ABG PO2 79.9 mm Hg (80.0-90.0)
[2021-03-26] MEDS: SENNOSIDES/DOCUSATE SODIUM 8.6/50 MG TAB FEEDTUBE SCH ×2 (10:58→22:52)
--- NOTE | 2021-03-26 13:56 | Progress Note ---
Assessment and Plan Acute hypoxemic respiratory failure Acute asthma exacerbation Morbid obesity Crohn's disease Metabolic acidosis Acute kidney injury Coronavirus infection Pneumonia (CAP) Oropharyngeal dysphagia Obesity, if not mentioned above - reduced peep to 10 re: Pplat in mid to high 30's - repeat ABG at 9pm - SCD's for VTE prophylaxis - nephrology input appreciated - continue care as below otherwise; - follow HIT assay - nephrology input appreciated; HD/UF for toxin and volume clearance - HD/UF sessions per nephrology prescription - vasopressors for target MAP > 65 mmHg - continue Daily SAT and SBT assessment as tolerated - continue to wean supplemental oxygen for target O2 sat's > 90% acutely - VAP bundle addressed - continue lung protective strategies - continue bronchodilators with pulmonary hygiene per RT - wean per pulmonary driven protocols otherwise - continue accuchecks with glycemic control per SSI (While critically ill target blood glucose of 140-180 mg/dL; avoid hypoglycemia) - sedation prn for target RASS 0 to -1 - avoid nephrotoxins, renally dose all medications - continue to avoid benzodiazepine's, reduce the possibility of delirium - AB's per ID rec's - prn analgesia per CPOT score - Maintenance of sleep-wake cycle, avoid delirium - continue enteral nutritional support at goal rate as tolerated - G.I. & VTE prophylaxis - PT/OT/ROM exercises - continue mobility protocols for pressure ulcer prophylaxis - Monitor hemodynamics closely - continue other care per attending / other consultants - discharge planning ongoing concurrently COVID SPECIFIC INTERVENTIONS - Actemra ordered if available - Remdesivir as per ID/Pulmonary developed protocols (not a candidate) - continue systemic steroids for severe COVID-19 infection empirically - follow repeat COVID tests results - zinc and vitamin C supplementation - Monitor inflammatory markers per facility protocol - ferritin, Ddimer, CRP - therapeutic anticoagulation per system Protocol based on d-dimer and clinical considerations (VTE prophylaxis) - Continue contact and airborne isolation .... Re-evaluate in am & prn CONDITION: CRITICAL PROGNOSIS: GUARDED CODE STATUS: FULL CODE The high probability of a clinically significant, sudden or life-threatening deterioration of the [respiratory, cardiovascular, renal & neurologic] system(s) required my full and direct attention, intervention and personal management. The aggregate critical care time was [35] minutes without overlap. Time includes spent on; [x] Data Review and interpretation [x] Patient assessment and monitoring of vital signs [x] Documentation [x] Medication orders and management Subjective Date of service: 03/26/21 Principal diagnosis: Ac hypoxemic resp failure; AE-Asthma; SAI; Crohn's; COVID- 19; Pneumonia Interval history: Patient is seen today for: Acute hypoxemic respiratory failure; AE-Asthma; SAI; Crohn's disease; COVID-19 infection; Pneumonia (CAP) Seen and examined at bedside; 24hour events reviewed; nursing and respiratory care staff consulted; no adverse overnight events reported to me; resting in bed; oxygenation slowly immproving; no gross bleeding; follows commanmds appropriately and denies pain; anuric at this point but tolerating HD/UF sessions very well Objective Vital Signs - 12hr 03/26/21 03/26/21 03/26/21 02:00 02:30 03:00 Temperature Pulse Rate 114 H 113 H 118 H Pulse Rate [ Anterior Bilateral Throughout] Pulse Rate [ From Monitor] Respiratory Rate Respiratory Rate [Anterior Bilateral Throughout] Blood Pressure 108/54 116/51 O2 Sat by Pulse 94 92 95 Oximetry 03/26/21 03/26/21 03/26/21 03:01 03:30 03:38 Temperature Pulse Rate 124 H 121 H Pulse Rate [ 120 H Anterior Bilateral Throughout] Pulse Rate [ From Monitor] Respiratory Rate Respiratory 34 H Rate [Anterior Bilateral Throughout] Blood Pressure 113/83 129/73 O2 Sat by Pulse 96 82 L Oximetry 03/26/21 03/26/21 03/26/21 03:42 04:00 04:30 Temperature 100.1 F H Pulse Rate 119 H 117 H 120 H Pulse Rate [ Anterior Bilateral Throughout] Pulse Rate [ From Monitor] Respiratory Rate Respiratory Rate [Anterior Bilateral Throughout] Blood Pressure 122/67 128/59 111/61 O2 Sat by Pulse 94 89 Oximetry 03/26/21 03/26/21 03/26/21 05:00 05:30 05:34 Temperature Pulse Rate 118 H 116 H 116 H Pulse Rate [ Anterior Bilateral Throughout] Pulse Rate [ From Monitor] Respiratory Rate Respiratory Rate [Anterior Bilateral Throughout] Blood Pressure 121/50 112/43 O2 Sat by Pulse 90 91 Oximetry 03/26/21 03/26/21 03/26/21 06:00 06:30 07:00 Temperature Pulse Rate 112 H 111 H 111 H Pulse Rate [ Anterior Bilateral Throughout] Pulse Rate [ From Monitor] Respiratory Rate Respiratory Rate [Anterior Bilateral Throughout] Blood Pressure 118/44 111/46 113/46 O2 Sat by Pulse 92 92 91 Oximetry 03/26/21 03/26/21 03/26/21 07:30 08:00 08:30 Temperature Pulse Rate 110 H 111 H 108 H Pulse Rate [ Anterior Bilateral Throughout] Pulse Rate [ 102 H From Monitor] Respiratory 24 Rate Respiratory Rate [Anterior Bilateral Throughout] Blood Pressure 109/47 110/50 108/48 O2 Sat by Pulse 91 97 94 Oximetry 03/26/21 03/26/21 03/26/21 09:00 09:30 09:33 Temperature Pulse Rate 107 H 113 H 110 H Pulse Rate [ Anterior Bilateral Throughout] Pulse Rate [ From Monitor] Respiratory Rate Respiratory Rate [Anterior Bilateral Throughout] Blood Pressure 110/41 116/49 116/49 O2 Sat by Pulse 91 90 95 Oximetry 03/26/21 03/26/21 03/26/21 09:40 10:00 10:30 Temperature Pulse Rate 117 H 112 H Pulse Rate [ 117 H Anterior Bilateral Throughout] Pulse Rate [ From Monitor] Respiratory Rate Respiratory 30 H Rate [Anterior Bilateral Throughout] Blood Pressure 116/58 110/56 O2 Sat by Pulse 89 91 Oximetry 03/26/21 03/26/21 03/26/21 11:00 11:30 12:00 Temperature 100.8 F H Pulse Rate 112 H 110 H 110 H Pulse Rate [ Anterior Bilateral Throughout] Pulse Rate [ 108 H From Monitor] Respiratory 24 Rate Respiratory Rate [Anterior Bilateral Throughout] Blood Pressure 121/45 121/46 120/53 O2 Sat by Pulse 90 93 95 Oximetry 03/26/21 03/26/21 03/26/21 12:23 12:30 13:00 Temperature Pulse Rate 108 H 110 H 110 H Pulse Rate [ Anterior Bilateral Throughout] Pulse Rate [ From Monitor] Respiratory Rate Respiratory Rate [Anterior Bilateral Throughout] Blood Pressure 114/49 109/52 114/42 O2 Sat by Pulse 94 98 100 Oximetry Constitutional: appears uncomfortable, other (morbidly obese female with mild v entilator dyssynchrony) Eyes: non-icteric ENT: oropharynx moist, other (ETT 25 cm BALJINDER) Neck: supple, no lymphadenopathy, no JVD, other (large circumference) Effort: mildly labored Ascultation: Bilateral: diminished breath sounds, rhonchi Percussion: Bilateral: not dull Cardiovascular: regular rate and rhythm Gastrointestinal: normoactive bowel sounds, soft, non-tender, non-distended (protuberant) Integumentary: normal Extremities: no cyanosis, no edema, pulses normal, no ischemia or petechiae Neurologic: non-focal exam (grossly), pupils equal and round, CN II-XII normal, motor strength normal and, other (moves all extremities spontaneously) Psychiatric: other (unasble to assess) CBC and BMP: 03/27/21 08:20 03/27/21 08:20 ABG, PT/INR, D-dimer: ABG ABG pH 7.370 pH Units (7.350-7.450) 03/26/21 09:50 POC ABG pCO2 50.3 mmHg (32.0-48.0) H 03/23/21 21:00 ABG pCO2 42.1 mm Hg 03/26/21 09:50 POC ABG pO2 114.4 mmHg (83-108) H 03/23/21 21:00 ABG pO2 79.9 mm Hg (80.0-90.0) L 03/26/21 09:50 POC ABG HCO3 20.3 03/23/21 21:00 ABG O2 Saturation 97.0 % (95.0-99.0) 03/26/21 09:50 PT/INR, D-dimer PT 15.8 Sec. (12.2-14.9) H 03/22/21 13:40 INR 1.14 (0.87-1.13) H 03/22/21 13:40 D-Dimer > 66693 ng/mlDDU (0-234) H 03/22/21 13:40 Abnormal lab findings: Abnormal Labs 03/13/21 03/13/21 03/13/21 13:26 13:26 15:40 WBC RBC Hgb Hct MCH 27 L RDW 17.0 H Plt Count Lymph % (Auto) [place] # (Auto) Seg Neutrophils % Seg Neutrophils # PT INR D-Dimer ABG pH POC ABG pCO2 POC ABG pO2 ABG pO2 ABG HCO3 ABG O2 Saturation ABG Base Excess ABG Hemoglobin ABG Oxyhemoglobin ABG Sodium ABG Potassium ABG Glucose Oxyhemoglobin Carboxyhemoglobin Sodium 136 L Potassium Chloride Carbon Dioxide BUN Creatinine Glucose 125 H 130 H POC Glucose Hemoglobin A1c Calcium Phosphorus Magnesium Lactate Dehydrogenase 235 H C-Reactive Protein 4.30 H Total Protein Albumin Triglycerides Arterial Blood Glucose Arterial Blood Ionized Calcium Urine Creatinine Random Vancomycin Coronavirus (PCR) Crossmatch 03/13/21 03/14/21 03/14/21 21:33 03:35 06:21 WBC 20.0 H RBC Hgb Hct MCH 27 L RDW 17.5 H Plt Count Lymph % (Auto) 7.8 L [place] # (Auto) 1.3 H Seg Neutrophils % 85.4 H Seg Neutrophils # 17.1 H PT INR D-Dimer ABG pH 7.323 L 7.234 L POC ABG pCO2 POC ABG pO2 ABG pO2 69.8 L ABG HCO3 ABG O2 Saturation 92.9 L 94.9 L ABG Base Excess -3.3 L -5.4 L ABG Hemoglobin ABG Oxyhemoglobin ABG Sodium ABG Potassium ABG Glucose Oxyhemoglobin 91.2 L 93.2 L Carboxyhemoglobin Sodium Potassium Chloride Carbon Dioxide BUN Creatinine Glucose POC Glucose Hemoglobin A1c Calcium Phosphorus Magnesium Lactate Dehydrogenase C-Reactive Protein Total Protein Albumin Triglycerides Arterial Blood Glucose Arterial Blood Ionized Calcium Urine Creatinine Random Vancomycin Coronavirus (PCR) Crossmatch 03/14/21 03/14/21 03/14/21 06:21 07:47 11:21 WBC RBC Hgb Hct MCH RDW Plt Count Lymph % (Auto) [place] # (Auto) Seg Neutrophils % Seg Neutrophils # PT INR D-Dimer ABG pH POC ABG pCO2 POC ABG pO2 ABG pO2 ABG HCO3 ABG O2 Saturation ABG Base Excess ABG Hemoglobin ABG Oxyhemoglobin ABG Sodium ABG Potassium ABG Glucose Oxyhemoglobin Carboxyhemoglobin Sodium 136 L 136 L Potassium 6.2 H* D 5.4 H Chloride Carbon Dioxide 21 L 21 L BUN Creatinine 1.5 H D 1.8 H Glucose 144 H 141 H POC Glucose 147 H Hemoglobin A1c Calcium Phosphorus Magnesium Lactate Dehydrogenase C-Reactive Protein Total Protein 8.7 H 9.2 H Albumin 3.8 L Triglycerides Arterial Blood Glucose Arterial Blood Ionized Calcium Urine Creatinine Random Vancomycin Coronavirus (PCR) Crossmatch 03/14/21 03/14/21 03/14/21 17:29 17:50 18:35 WBC RBC Hgb Hct MCH RDW Plt Count Lymph % (Auto) [place] # (Auto) Seg Neutrophils % Seg Neutrophils # PT INR D-Dimer ABG pH POC ABG pCO2 POC ABG pO2 ABG pO2 ABG HCO3 ABG O2 Saturation ABG Base Excess ABG Hemoglobin ABG Oxyhemoglobin ABG Sodium ABG Potassium ABG Glucose Oxyhemoglobin Carboxyhemoglobin Sodium 135 L Potassium 6.4 H* Chloride Carbon Dioxide 15 L BUN 26 H Creatinine 3.4 H D Glucose 165 H POC Glucose 209 H Hemoglobin A1c Calcium Phosphorus Magnesium Lactate Dehydrogenase C-Reactive Protein Total Protein Albumin Triglycerides Arterial Blood Glucose Arterial Blood Ionized Calcium Urine Creatinine 40.1 H Random Vancomycin Coronavirus (PCR) Crossmatch 03/14/21 03/14/21 03/14/21 18:46 22:23 23:52 WBC RBC Hgb Hct MCH RDW Plt Count Lymph % (Auto) [place] # (Auto) Seg Neutrophils % Seg Neutrophils # PT INR D-Dimer ABG pH 7.270 L POC ABG pCO2 POC ABG pO2 63.4 L ABG pO2 ABG HCO3 ABG O2 Saturation ABG Base Excess ABG Hemoglobin ABG Oxyhemoglobin 90.2 L ABG Sodium 134.9 L ABG Potassium 5.3 H ABG Glucose 134 H Oxyhemoglobin Carboxyhemoglobin Sodium 136 L Potassium 5.2 H Chloride Carbon Dioxide 20 L BUN 29 H Creatinine 3.6 H Glucose 236 H POC Glucose 128 H Hemoglobin A1c Calcium Phosphorus Magnesium Lactate Dehydrogenase C-Reactive Protein Total Protein Albumin 3.2 L Triglycerides Arterial Blood Glucose 134 H Arterial Blood Ionized Calcium Urine Creatinine Random Vancomycin Coronavirus (PCR) Crossmatch 03/14/21 03/15/21 03/15/21 Unknown 05:00 05:09 WBC 22.5 H RBC Hgb Hct MCH 27 L RDW 17.6 H Plt Count Lymph % (Auto) [place] # (Auto) Seg Neutrophils % Seg Neutrophils # PT INR D-Dimer ABG pH POC ABG pCO2 POC ABG pO2 ABG pO2 ABG HCO3 ABG O2 Saturation ABG Base Excess ABG Hemoglobin ABG Oxyhemoglobin ABG Sodium ABG Potassium ABG Glucose Oxyhemoglobin Carboxyhemoglobin Sodium Potassium Chloride Carbon Dioxide BUN Creatinine Glucose POC Glucose 116 H Hemoglobin A1c Calcium Phosphorus Magnesium Lactate Dehydrogenase C-Reactive Protein Total Protein Albumin Triglycerides Arterial Blood Glucose Arterial Blood Ionized Calcium Urine Creatinine Random Vancomycin Coronavirus (PCR) Positive A Crossmatch 03/15/21 03/15/21 03/15/21 05:09 05:09 05:09 WBC RBC Hgb Hct MCH RDW Plt Count Lymph % (Auto) [place] # (Auto) Seg Neutrophils % Seg Neutrophils # PT INR D-Dimer ABG pH POC ABG pCO2 POC ABG pO2 ABG pO2 ABG HCO3 ABG O2 Saturation ABG Base Excess ABG Hemoglobin ABG Oxyhemoglobin ABG Sodium ABG Potassium ABG Glucose Oxyhemoglobin Carboxyhemoglobin Sodium 136 L Potassium 6.5 H* D Chloride Carbon Dioxide 17 L BUN 41 H Creatinine 5.3 H Glucose 128 H POC Glucose Hemoglobin A1c 6.3 H Calcium Phosphorus Magnesium Lactate Dehydrogenase C-Reactive Protein 12.10 H Total Protein Albumin 3.1 L Triglycerides Arterial Blood Glucose Arterial Blood Ionized Calcium Urine Creatinine Random Vancomycin Coronavirus (PCR) Crossmatch 03/15/21 03/15/21 03/15/21 10:00 21:50 23:39 WBC RBC Hgb Hct MCH RDW Plt Count Lymph % (Auto) [place] # (Auto) Seg Neutrophils % Seg Neutrophils # PT INR D-Dimer ABG pH 7.098 L POC ABG pCO2 72.7 H POC ABG pO2 ABG pO2 162.5 H ABG HCO3 ABG O2 Saturation ABG Base Excess ABG Hemoglobin 10.1 L ABG Oxyhemoglobin ABG Sodium ABG Potassium 5.7 H ABG Glucose Oxyhemoglobin Carboxyhemoglobin 0.4 L Sodium Potassium Chloride Carbon Dioxide BUN Creatinine Glucose POC Glucose 156 H Hemoglobin A1c Calcium Phosphorus Magnesium Lactate Dehydrogenase C-Reactive Protein Total Protein Albumin Triglycerides Arterial Blood Glucose Arterial Blood Ionized Calcium Urine Creatinine Random Vancomycin Coronavirus (PCR) Crossmatch 03/16/21 03/16/21 03/16/21 05:00 05:30 05:30 WBC 16.7 H RBC 3.59 L Hgb 9.6 L Hct 30.1 L MCH 27 L RDW 17.5 H Plt Count Lymph % (Auto) [place] # (Auto) Seg Neutrophils % Seg Neutrophils # PT INR D-Dimer ABG pH POC ABG pCO2 POC ABG pO2 ABG pO2 ABG HCO3 ABG O2 Saturation ABG Base Excess ABG Hemoglobin ABG Oxyhemoglobin ABG Sodium ABG Potassium ABG Glucose Oxyhemoglobin Carboxyhemoglobin Sodium Potassium Chloride Carbon Dioxide BUN 46 H Creatinine 6.2 H Glucose 131 H POC Glucose Hemoglobin A1c Calcium Phosphorus 6.00 H D Magnesium Lactate Dehydrogenase 318 H C-Reactive Protein 18.60 H Total Protein Albumin 3.0 L Triglycerides Arterial Blood Glucose Arterial Blood Ionized Calcium Urine Creatinine Random Vancomycin Coronavirus (PCR) Crossmatch 11/07/0503/16/21 03/16/21 05:51 06:37 08:58 WBC RBC Hgb Hct MCH RDW Plt Count Lymph % (Auto) [place] # (Auto) Seg Neutrophils % Seg Neutrophils # PT INR D-Dimer 3041.12 H ABG pH POC ABG pCO2 POC ABG pO2 ABG pO2 141.5 H ABG HCO3 ABG O2 Saturation ABG Base Excess ABG Hemoglobin 9.7 L ABG Oxyhemoglobin ABG Sodium ABG Potassium ABG Glucose Oxyhemoglobin Carboxyhemoglobin Sodium Potassium Chloride Carbon Dioxide BUN Creatinine Glucose POC Glucose 126 H Hemoglobin A1c Calcium Phosphorus Magnesium Lactate Dehydrogenase C-Reactive Protein Total Protein Albumin Triglycerides Arterial Blood Glucose Arterial Blood Ionized Calcium Urine Creatinine Random Vancomycin Coronavirus (PCR) Crossmatch 03/16/21 03/16/21 03/16/21 12:11 16:51 21:00 WBC RBC Hgb Hct MCH RDW Plt Count Lymph % (Auto) [place] # (Auto) Seg Neutrophils % Seg Neutrophils # PT INR D-Dimer ABG pH 7.239 L POC ABG pCO2 61.5 H POC ABG pO2 80.8 L ABG pO2 ABG HCO3 ABG O2 Saturation ABG Base Excess ABG Hemoglobin 11.4 L ABG Oxyhemoglobin 93.5 L ABG Sodium ABG Potassium 5.4 H ABG Glucose 137 H Oxyhemoglobin Carboxyhemoglobin 0.2 L Sodium Potassium Chloride Carbon Dioxide BUN Creatinine Glucose POC Glucose 156 H 133 H Hemoglobin A1c Calcium Phosphorus Magnesium Lactate Dehydrogenase C-Reactive Protein Total Protein Albumin Triglycerides Arterial Blood Glucose 137 H Arterial Blood Ionized Calcium Urine Creatinine Random Vancomycin Coronavirus (PCR) Crossmatch 03/16/21 03/17/21 03/17/21 23:42 05:23 05:23 WBC 18.4 H RBC Hgb Hct MCH 27 L RDW 17.4 H Plt Count Lymph % (Auto) [place] # (Auto) Seg Neutrophils % Seg Neutrophils # PT INR D-Dimer ABG pH POC ABG pCO2 POC ABG pO2 ABG pO2 ABG HCO3 ABG O2 Saturation ABG Base Excess ABG Hemoglobin ABG Oxyhemoglobin ABG Sodium ABG Potassium ABG Glucose Oxyhemoglobin Carboxyhemoglobin Sodium Potassium 5.2 H Chloride Carbon Dioxide 21 L BUN 79 H Creatinine 8.6 H Glucose 124 H POC Glucose 133 H Hemoglobin A1c Calcium Phosphorus Magnesium Lactate Dehydrogenase C-Reactive Protein Total Protein Albumin 3.2 L Triglycerides 285 H Arterial Blood Glucose Arterial Blood Ionized Calcium Urine Creatinine Random Vancomycin Coronavirus (PCR) Crossmatch 03/17/21 03/17/21 03/17/21 05:23 10:48 12:20 WBC RBC Hgb Hct MCH RDW Plt Count Lymph % (Auto) [place] # (Auto) Seg Neutrophils % Seg Neutrophils # PT INR D-Dimer ABG pH 7.294 L POC ABG pCO2 POC ABG pO2 ABG pO2 90.3 H ABG HCO3 ABG O2 Saturation ABG Base Excess ABG Hemoglobin 9.9 L ABG Oxyhemoglobin ABG Sodium ABG Potassium ABG Glucose Oxyhemoglobin Carboxyhemoglobin Sodium Potassium 5.2 H Chloride Carbon Dioxide 21 L BUN 79 H Creatinine 8.4 H Glucose 125 H POC Glucose 171 H Hemoglobin A1c Calcium Phosphorus 9.90 H D Magnesium 2.40 H Lactate Dehydrogenase C-Reactive Protein Total Protein Albumin Triglycerides Arterial Blood Glucose Arterial Blood Ionized Calcium Urine Creatinine Random Vancomycin Coronavirus (PCR) Crossmatch 03/17/21 03/17/21 03/18/21 17:24 21:00 04:30 WBC RBC Hgb Hct MCH RDW Plt Count Lymph % (Auto) [place] # (Auto) Seg Neutrophils % Seg Neutrophils # PT INR D-Dimer 9953.09 H ABG pH 7.310 L POC ABG pCO2 54.5 H POC ABG pO2 62.3 L ABG pO2 ABG HCO3 ABG O2 Saturation ABG Base Excess ABG Hemoglobin 10.2 L ABG Oxyhemoglobin 88.6 L ABG Sodium ABG Potassium 4.7 H ABG Glucose 99 H Oxyhemoglobin Carboxyhemoglobin 0.3 L Sodium Potassium Chloride Carbon Dioxide BUN Creatinine Glucose POC Glucose 121 H Hemoglobin A1c Calcium Phosphorus Magnesium Lactate Dehydrogenase C-Reactive Protein Total Protein Albumin Triglycerides Arterial Blood Glucose 99 H Arterial Blood Ionized Calcium 4.3 L Urine Creatinine Random Vancomycin Coronavirus (PCR) Crossmatch 03/18/21 03/18/21 03/18/21 04:30 04:30 11:34 WBC 12.8 H RBC 3.49 L Hgb 9.4 L Hct 29.3 L MCH 27 L RDW 17.4 H Plt Count Lymph % (Auto) [place] # (Auto) Seg Neutrophils % Seg Neutrophils # PT INR D-Dimer ABG pH POC ABG pCO2 POC ABG pO2 ABG pO2 ABG HCO3 ABG O2 Saturation ABG Base Excess ABG Hemoglobin ABG Oxyhemoglobin ABG Sodium ABG Potassium ABG Glucose Oxyhemoglobin Carboxyhemoglobin Sodium Potassium Chloride Carbon Dioxide BUN 69 H Creatinine 7.3 H Glucose POC Glucose 114 H Hemoglobin A1c Calcium 8.2 L Phosphorus 7.60 H D Magnesium Lactate Dehydrogenase 477 H C-Reactive Protein 6.90 H Total Protein Albumin Triglycerides Arterial Blood Glucose Arterial Blood Ionized Calcium Urine Creatinine Random Vancomycin Coronavirus (PCR) Crossmatch 03/18/21 03/19/21 03/19/21 21:44 04:13 04:13 WBC 13.7 H RBC 3.32 L Hgb 9.0 L Hct 28.1 L MCH 27 L RDW 16.9 H Plt Count Lymph % (Auto) [place] # (Auto) Seg Neutrophils % Seg Neutrophils # PT INR D-Dimer ABG pH 7.290 L POC ABG pCO2 POC ABG pO2 ABG pO2 119.7 H ABG HCO3 28.0 H ABG O2 Saturation ABG Base Excess ABG Hemoglobin 9.6 L ABG Oxyhemoglobin ABG Sodium ABG Potassium ABG Glucose Oxyhemoglobin Carboxyhemoglobin Sodium Potassium Chloride Carbon Dioxide BUN Creatinine Glucose POC Glucose Hemoglobin A1c Calcium Phosphorus Magnesium Lactate Dehydrogenase C-Reactive Protein Total Protein Albumin Triglycerides Arterial Blood Glucose Arterial Blood Ionized Calcium Urine Creatinine Random Vancomycin 43.5 H Coronavirus (PCR) Crossmatch 03/19/21 03/19/21 03/19/21 04:13 05:59 11:40 WBC RBC Hgb Hct MCH RDW Plt Count Lymph % (Auto) [place] # (Auto) Seg Neutrophils % Seg Neutrophils # PT INR D-Dimer ABG pH POC ABG pCO2 POC ABG pO2 ABG pO2 ABG HCO3 ABG O2 Saturation ABG Base Excess ABG Hemoglobin ABG Oxyhemoglobin ABG Sodium ABG Potassium ABG Glucose Oxyhemoglobin Carboxyhemoglobin Sodium Potassium Chloride Carbon Dioxide BUN 55 H Creatinine 7.0 H Glucose POC Glucose 116 H 145 H Hemoglobin A1c Calcium 8.1 L Phosphorus 7.90 H Magnesium Lactate Dehydrogenase C-Reactive Protein Total Protein Albumin Triglycerides Arterial Blood Glucose Arterial Blood Ionized Calcium Urine Creatinine Random Vancomycin Coronavirus (PCR) Crossmatch 03/19/21 03/19/21 03/20/21 17:01 23:41 04:00 WBC 15.6 H RBC 3.55 L Hgb 9.6 L Hct MCH 27 L RDW 16.8 H Plt Count 139 L Lymph % (Auto) [place] # (Auto) Seg Neutrophils % Seg Neutrophils # PT INR D-Dimer ABG pH POC ABG pCO2 POC ABG pO2 ABG pO2 ABG HCO3 ABG O2 Saturation ABG Base Excess ABG Hemoglobin ABG Oxyhemoglobin ABG Sodium ABG Potassium ABG Glucose Oxyhemoglobin Carboxyhemoglobin Sodium Potassium Chloride Carbon Dioxide BUN Creatinine Glucose POC Glucose 111 H 118 H Hemoglobin A1c Calcium Phosphorus Magnesium Lactate Dehydrogenase C-Reactive Protein Total Protein Albumin Triglycerides Arterial Blood Glucose Arterial Blood Ionized Calcium Urine Creatinine Random Vancomycin Coronavirus (PCR) Crossmatch 03/20/21 03/20/21 03/20/21 04:00 04:00 04:37 WBC RBC Hgb Hct MCH RDW Plt Count Lymph % (Auto) [place] # (Auto) Seg Neutrophils % Seg Neutrophils # PT INR D-Dimer > 50399 H ABG pH 7.306 L POC ABG pCO2 POC ABG pO2 ABG pO2 ABG HCO3 27.9 H ABG O2 Saturation ABG Base Excess ABG Hemoglobin 5.2 L ABG Oxyhemoglobin ABG Sodium ABG Potassium ABG Glucose Oxyhemoglobin Carboxyhemoglobin Sodium Potassium 5.2 H Chloride 97.6 L Carbon Dioxide BUN 52 H Creatinine 6.2 H Glucose 104 H POC Glucose Hemoglobin A1c Calcium Phosphorus 8.60 H Magnesium Lactate Dehydrogenase C-Reactive Protein 6.90 H Total Protein Albumin Triglycerides Arterial Blood Glucose Arterial Blood Ionized Calcium Urine Creatinine Random Vancomycin Coronavirus (PCR) Crossmatch 03/20/21 03/20/21 03/20/21 13:50 17:46 17:56 WBC RBC Hgb Hct MCH RDW Plt Count Lymph % (Auto) [place] # (Auto) Seg Neutrophils % Seg Neutrophils # PT INR D-Dimer ABG pH POC ABG pCO2 POC ABG pO2 ABG pO2 ABG HCO3 ABG O2 Saturation ABG Base Excess ABG Hemoglobin ABG Oxyhemoglobin ABG Sodium ABG Potassium ABG Glucose Oxyhemoglobin Carboxyhemoglobin Sodium Potassium Chloride Carbon Dioxide BUN 63 H 43 H Creatinine Glucose POC Glucose 145 H Hemoglobin A1c Calcium Phosphorus Magnesium Lactate Dehydrogenase C-Reactive Protein Total Protein Albumin Triglycerides Arterial Blood Glucose Arterial Blood Ionized Calcium Urine Creatinine Random Vancomycin Coronavirus (PCR) Crossmatch 03/20/21 03/21/21 03/21/21 23:18 06:58 06:58 WBC 14.4 H RBC 3.41 L Hgb 9.5 L Hct 28.6 L MCH RDW 17.4 H Plt Count 107 L Lymph % (Auto) [place] # (Auto) Seg Neutrophils % Seg Neutrophils # PT INR D-Dimer ABG pH POC ABG pCO2 POC ABG pO2 ABG pO2 ABG HCO3 ABG O2 Saturation ABG Base Excess ABG Hemoglobin ABG Oxyhemoglobin ABG Sodium ABG Potassium ABG Glucose Oxyhemoglobin Carboxyhemoglobin Sodium Potassium Chloride Carbon Dioxide BUN 60 H Creatinine 7.7 H Glucose POC Glucose 106 H Hemoglobin A1c Calcium Phosphorus Magnesium Lactate Dehydrogenase C-Reactive Protein Total Protein Albumin Triglycerides Arterial Blood Glucose Arterial Blood Ionized Calcium Urine Creatinine Random Vancomycin Coronavirus (PCR) Crossmatch 03/21/21 03/21/21 03/21/21 11:11 18:04 Unknown WBC RBC Hgb Hct MCH RDW Plt Count Lymph % (Auto) [place] # (Auto) Seg Neutrophils % Seg Neutrophils # PT INR D-Dimer ABG pH 7.270 L POC ABG pCO2 58.7 H POC ABG pO2 76.9 L ABG pO2 ABG HCO3 ABG O2 Saturation ABG Base Excess ABG Hemoglobin 9.9 L ABG Oxyhemoglobin 92.4 L ABG Sodium 135.8 L ABG Potassium 4.6 H ABG Glucose Oxyhemoglobin Carboxyhemoglobin 0.1 L Sodium Potassium Chloride Carbon Dioxide BUN Creatinine Glucose POC Glucose 109 H 141 H Hemoglobin A1c Calcium Phosphorus Magnesium Lactate Dehydrogenase C-Reactive Protein Total Protein Albumin Triglycerides Arterial Blood Glucose Arterial Blood Ionized Calcium 4.5 L Urine Creatinine Random Vancomycin Coronavirus (PCR) Crossmatch 03/22/21 03/22/21 03/22/21 03:09 07:10 10:00 WBC RBC Hgb Hct MCH RDW Plt Count Lymph % (Auto) [place] # (Auto) Seg Neutrophils % Seg Neutrophils # PT INR D-Dimer ABG pH 7.206 L 7.245 L POC ABG pCO2 55.6 H POC ABG pO2 ABG pO2 90.6 H ABG HCO3 ABG O2 Saturation ABG Base Excess -4.4 L ABG Hemoglobin 9.0 L 8.4 L ABG Oxyhemoglobin ABG Sodium 123.4 L ABG Potassium 5.6 H ABG Glucose 106 H Oxyhemoglobin 94.5 L Carboxyhemoglobin 0.1 L Sodium Potassium 5.4 H Chloride 96.8 L Carbon Dioxide BUN 89 H Creatinine 8.7 H Glucose 131 H POC Glucose Hemoglobin A1c Calcium Phosphorus Magnesium Lactate Dehydrogenase C-Reactive Protein 9.40 H Total Protein Albumin Triglycerides Arterial Blood Glucose 106 H Arterial Blood Ionized Calcium Urine Creatinine Random Vancomycin Coronavirus (PCR) Crossmatch 03/22/21 03/22/21 03/22/21 10:00 12:37 13:19 WBC RBC 3.05 L Hgb 8.4 L Hct 25.5 L MCH RDW 17.5 H Plt Count 108 L Lymph % (Auto) [place] # (Auto) Seg Neutrophils % Seg Neutrophils # PT INR D-Dimer ABG pH POC ABG pCO2 POC ABG pO2 ABG pO2 ABG HCO3 ABG O2 Saturation ABG Base Excess ABG Hemoglobin ABG Oxyhemoglobin ABG Sodium ABG Potassium ABG Glucose Oxyhemoglobin Carboxyhemoglobin Sodium Potassium Chloride Carbon Dioxide BUN Creatinine 8.7 H Glucose POC Glucose 140 H Hemoglobin A1c Calcium Phosphorus Magnesium Lactate Dehydrogenase C-Reactive Protein Total Protein Albumin Triglycerides Arterial Blood Glucose Arterial Blood Ionized Calcium Urine Creatinine Random Vancomycin Coronavirus (PCR) Crossmatch 03/22/21 03/22/21 03/22/21 13:40 17:14 18:21 WBC RBC Hgb Hct MCH RDW Plt Count Lymph % (Auto) [place] # (Auto) Seg Neutrophils % Seg Neutrophils # PT 15.8 H INR 1.14 H D-Dimer > 06742 H ABG pH POC ABG pCO2 POC ABG pO2 ABG pO2 ABG HCO3 ABG O2 Saturation ABG Base Excess ABG Hemoglobin ABG Oxyhemoglobin ABG Sodium ABG Potassium ABG Glucose Oxyhemoglobin Carboxyhemoglobin Sodium Potassium Chloride Carbon Dioxide BUN Creatinine Glucose POC Glucose 117 H 112 H Hemoglobin A1c Calcium Phosphorus Magnesium Lactate Dehydrogenase C-Reactive Protein Total Protein Albumin Triglycerides Arterial Blood Glucose Arterial Blood Ionized Calcium Urine Creatinine Random Vancomycin Coronavirus (PCR) Crossmatch 03/22/21 03/22/21 03/23/21 21:25 22:57 04:30 WBC RBC Hgb Hct MCH RDW Plt Count Lymph % (Auto) [place] # (Auto) Seg Neutrophils % Seg Neutrophils # PT INR D-Dimer ABG pH 7.188 L* POC ABG pCO2 POC ABG pO2 ABG pO2 97.9 H ABG HCO3 ABG O2 Saturation ABG Base Excess -3.7 L ABG Hemoglobin 9.2 L ABG Oxyhemoglobin ABG Sodium ABG Potassium ABG Glucose Oxyhemoglobin 94.4 L Carboxyhemoglobin Sodium Potassium Chloride Carbon Dioxide BUN Creatinine Glucose POC Glucose 106 H Hemoglobin A1c Calcium Phosphorus Magnesium Lactate Dehydrogenase C-Reactive Protein Total Protein Albumin Triglycerides 381 H Arterial Blood Glucose Arterial Blood Ionized Calcium Urine Creatinine Random Vancomycin Coronavirus (PCR) Crossmatch 03/23/21 03/23/21 03/23/21 04:30 04:30 05:37 WBC 20.1 H RBC 3.17 L Hgb 8.6 L Hct 27.2 L MCH 27 L RDW 17.4 H Plt Count 118 L Lymph % (Auto) [place] # (Auto) Seg Neutrophils % Seg Neutrophils # PT INR D-Dimer ABG pH POC ABG pCO2 POC ABG pO2 ABG pO2 ABG HCO3 ABG O2 Saturation ABG Base Excess ABG Hemoglobin ABG Oxyhemoglobin ABG Sodium ABG Potassium ABG Glucose Oxyhemoglobin Carboxyhemoglobin Sodium Potassium 5.2 H Chloride 97.1 L Carbon Dioxide 21 L BUN 82 H Creatinine 9.1 H Glucose 109 H POC Glucose 130 H Hemoglobin A1c Calcium Phosphorus 10.80 H Magnesium 3.50 H Lactate Dehydrogenase C-Reactive Protein Total Protein Albumin Triglycerides Arterial Blood Glucose Arterial Blood Ionized Calcium Urine Creatinine Random Vancomycin Coronavirus (PCR) Crossmatch 03/23/21 03/23/21 03/23/21 08:44 11:30 16:09 WBC RBC Hgb Hct MCH RDW Plt Count Lymph % (Auto) [place] # (Auto) Seg Neutrophils % Seg Neutrophils # PT INR D-Dimer ABG pH 7.190 L POC ABG pCO2 57.9 H POC ABG pO2 79.2 L ABG pO2 ABG HCO3 ABG O2 Saturation ABG Base Excess ABG Hemoglobin 11.8 L ABG Oxyhemoglobin 92.3 L ABG Sodium 131.0 L ABG Potassium 5.0 H ABG Glucose 122 H Oxyhemoglobin Carboxyhemoglobin 0.4 L Sodium Potassium Chloride Carbon Dioxide BUN Creatinine Glucose POC Glucose 129 H 148 H Hemoglobin A1c Calcium Phosphorus Magnesium Lactate Dehydrogenase C-Reactive Protein Total Protein Albumin Triglycerides Arterial Blood Glucose 122 H Arterial Blood Ionized Calcium 4.4 L Urine Creatinine Random Vancomycin Coronavirus (PCR) Crossmatch 03/23/21 03/24/21 03/24/21 21:00 03:35 04:00 WBC 17.8 H RBC 2.96 L Hgb 8.1 L Hct 25.0 L MCH 27 L RDW 17.7 H Plt Count 124 L Lymph % (Auto) [place] # (Auto) Seg Neutrophils % Seg Neutrophils # PT INR D-Dimer ABG pH 7.223 L POC ABG pCO2 50.3 H POC ABG pO2 114.4 H ABG pO2 ABG HCO3 ABG O2 Saturation ABG Base Excess ABG Hemoglobin 8.8 L ABG Oxyhemoglobin ABG Sodium 130.4 L ABG Potassium 5.1 H ABG Glucose 126 H Oxyhemoglobin Carboxyhemoglobin 0.2 L Sodium Potassium Chloride Carbon Dioxide BUN Creatinine Glucose POC Glucose 148 H Hemoglobin A1c Calcium Phosphorus Magnesium Lactate Dehydrogenase C-Reactive Protein Total Protein Albumin Triglycerides Arterial Blood Glucose 126 H Arterial Blood Ionized Calcium 4.4 L Urine Creatinine Random Vancomycin Coronavirus (PCR) Crossmatch 03/24/21 03/24/21 03/24/21 04:00 06:49 12:29 WBC RBC Hgb Hct MCH RDW Plt Count Lymph % (Auto) [place] # (Auto) Seg Neutrophils % Seg Neutrophils # PT INR D-Dimer ABG pH POC ABG pCO2 POC ABG pO2 ABG pO2 ABG HCO3 ABG O2 Saturation ABG Base Excess ABG Hemoglobin ABG Oxyhemoglobin ABG Sodium ABG Potassium ABG Glucose Oxyhemoglobin Carboxyhemoglobin Sodium Potassium Chloride 95.6 L Carbon Dioxide 20 L BUN 108 H Creatinine 10.8 H Glucose 155 H POC Glucose 136 H 142 H Hemoglobin A1c Calcium Phosphorus Magnesium Lactate Dehydrogenase C-Reactive Protein Total Protein Albumin Triglycerides Arterial Blood Glucose Arterial Blood Ionized Calcium Urine Creatinine Random Vancomycin Coronavirus (PCR) Crossmatch 03/24/21 03/25/21 03/25/21 21:35 00:15 05:51 WBC RBC Hgb Hct MCH RDW Plt Count Lymph % (Auto) [place] # (Auto) Seg Neutrophils % Seg Neutrophils # PT INR D-Dimer ABG pH 7.241 L POC ABG pCO2 POC ABG pO2 ABG pO2 72.4 L ABG HCO3 ABG O2 Saturation 90.3 L ABG Base Excess ABG Hemoglobin 7.9 L ABG Oxyhemoglobin ABG Sodium ABG Potassium ABG Glucose Oxyhemoglobin 88.4 L Carboxyhemoglobin Sodium Potassium Chloride Carbon Dioxide BUN Creatinine Glucose POC Glucose 110 H 121 H Hemoglobin A1c Calcium Phosphorus Magnesium Lactate Dehydrogenase C-Reactive Protein Total Protein Albumin Triglycerides Arterial Blood Glucose Arterial Blood Ionized Calcium Urine Creatinine Random Vancomycin Coronavirus (PCR) Crossmatch 03/25/21 03/25/21 03/25/21 05:54 05:54 12:21 WBC 12.4 H RBC 2.52 L Hgb 6.9 L Hct 21.1 L MCH RDW 17.4 H Plt Count 102 L Lymph % (Auto) [place] # (Auto) Seg Neutrophils % Seg Neutrophils # PT INR D-Dimer ABG pH POC ABG pCO2 POC ABG pO2 ABG pO2 ABG HCO3 ABG O2 Saturation ABG Base Excess ABG Hemoglobin ABG Oxyhemoglobin ABG Sodium ABG Potassium ABG Glucose Oxyhemoglobin Carboxyhemoglobin Sodium Potassium Chloride 96.7 L Carbon Dioxide BUN 81 H Creatinine 8.1 H Glucose 116 H POC Glucose 138 H Hemoglobin A1c Calcium 8.2 L Phosphorus Magnesium Lactate Dehydrogenase C-Reactive Protein Total Protein Albumin Triglycerides Arterial Blood Glucose Arterial Blood Ionized Calcium Urine Creatinine Random Vancomycin Coronavirus (PCR) Crossmatch 03/25/21 03/25/21 03/25/21 13:45 17:32 21:30 WBC RBC Hgb Hct MCH RDW Plt Count Lymph % (Auto) [place] # (Auto) Seg Neutrophils % Seg Neutrophils # PT INR D-Dimer ABG pH POC ABG pCO2 POC ABG pO2 ABG pO2 70.2 L ABG HCO3 ABG O2 Saturation ABG Base Excess ABG Hemoglobin 6.8 L ABG Oxyhemoglobin ABG Sodium ABG Potassium ABG Glucose Oxyhemoglobin 94.5 L Carboxyhemoglobin Sodium Potassium Chloride Carbon Dioxide BUN Creatinine Glucose POC Glucose 110 H Hemoglobin A1c Calcium Phosphorus Magnesium Lactate Dehydrogenase C-Reactive Protein Total Protein Albumin Triglycerides Arterial Blood Glucose Arterial Blood Ionized Calcium Urine Creatinine Random Vancomycin Coronavirus (PCR) Crossmatch See Detail 03/25/21 03/25/21 03/26/21 23:29 Unknown 05:15 WBC 12.4 H 14.0 H RBC 2.49 L 2.83 L Hgb 6.8 L 7.6 L Hct 20.9 L 23.6 L MCH 27 L 27 L RDW 18.0 H 17.1 H Plt Count 107 L 116 L Lymph % (Auto) [place] # (Auto) Seg Neutrophils % Seg Neutrophils # PT INR D-Dimer ABG pH POC ABG pCO2 POC ABG pO2 ABG pO2 ABG HCO3 ABG O2 Saturation ABG Base Excess ABG Hemoglobin ABG Oxyhemoglobin ABG Sodium ABG Potassium ABG Glucose Oxyhemoglobin Carboxyhemoglobin Sodium Potassium Chloride Carbon Dioxide BUN Creatinine Glucose POC Glucose 113 H Hemoglobin A1c Calcium Phosphorus Magnesium Lactate Dehydrogenase C-Reactive Protein Total Protein Albumin Triglycerides Arterial Blood Glucose Arterial Blood Ionized Calcium Urine Creatinine Random Vancomycin Coronavirus (PCR) Crossmatch 03/26/21 03/26/21 03/26/21 05:15 05:35 09:50 WBC RBC Hgb Hct MCH RDW Plt Count Lymph % (Auto) [place] # (Auto) Seg Neutrophils % Seg Neutrophils # PT INR D-Dimer ABG pH POC ABG pCO2 POC ABG pO2 ABG pO2 79.9 L ABG HCO3 ABG O2 Saturation ABG Base Excess ABG Hemoglobin 7.1 L ABG Oxyhemoglobin ABG Sodium ABG Potassium ABG Glucose Oxyhemoglobin 94.9 L Carboxyhemoglobin Sodium Potassium 3.4 L Chloride Carbon Dioxide BUN 70 H Creatinine 7.3 H Glucose 142 H POC Glucose 130 H Hemoglobin A1c Calcium 8.2 L Phosphorus Magnesium Lactate Dehydrogenase C-Reactive Protein Total Protein Albumin Triglycerides 254 H Arterial Blood Glucose Arterial Blood Ionized Calcium Urine Creatinine Random Vancomycin Coronavirus (PCR) Crossmatch 03/26/21 11:45 WBC RBC Hgb Hct MCH RDW Plt Count Lymph % (Auto) [place] # (Auto) Seg Neutrophils % Seg Neutrophils # PT INR D-Dimer ABG pH POC ABG pCO2 POC ABG pO2 ABG pO2 ABG HCO3 ABG O2 Saturation ABG Base Excess ABG Hemoglobin ABG Oxyhemoglobin ABG Sodium ABG Potassium ABG Glucose Oxyhemoglobin Carboxyhemoglobin Sodium Potassium Chloride Carbon Dioxide BUN Creatinine Glucose POC Glucose 123 H Hemoglobin A1c Calcium Phosphorus Magnesium Lactate Dehydrogenase C-Reactive Protein Total Protein Albumin Triglycerides Arterial Blood Glucose Arterial Blood Ionized Calcium Urine Creatinine Random Vancomycin Coronavirus (PCR) Crossmatch Chest x-ray: image reviewed (stable to sligfhtly worse bilateral pulmonary infil trates) Allied health notes reviewed: nursing
--- NOTE | 2021-03-26 15:10 | Progress Note ---
Assessment and Plan Cultures: SARS CoV2 PCR: Positive 03/13/2021 blood culture: No growth Rest cultures: MSSA Resp culture 03/23/2021 A/P: 31-year-old female with asthma, morbid obesity, Crohn's disease admitted with cough and shortness of breath: #Bilateral pneumonia: Secondary to COVID-19. Severe disease. CRP has worsened to 12.1. Procalcitonin 0.05.. now developed MSSA in the lungs. #Acute hypoxic respiratory failure: Requiring on the vent #Acute renal failure: Now on HD, may need CRRT #Acute asthma exacerbation #Morbid obesity Recs: -Actemra given 03/15/2021 per pharmacy notes. -prophylactic anticoagulation based on d-dimer per hospital protocol -Escalated antibiotics to cefepime given fevers and GNR on the resp culture -trend d-dimer, CRP every 2-3 days -poor prognosis Champ Ling MD [facility] ([facility] O: [phone] F: [phone] Subjective Date of service: 03/26/21 Principal diagnosis: Ac hypoxemic resp failure; AE-Asthma; SAI; Crohn's; COVID- 19; Pneumonia Interval history: Febrile to 100.8 with a white count of 14. Repeat cultures no growth so far, Gram stain with rare gram-negative rods Objective - Exam Narrative Exam: Physical exam deferred to reduce risk of transmission of COVID-19. Please refer to primary team's note. - Constitutional Vitals: Vital Signs Temp Pulse Resp BP Pulse Ox 100.8 F H 110 H 24 114/42 100 03/26/21 12:00 03/26/21 13:00 03/26/21 12:00 03/26/21 13:00 03/26/21 13:00 Temperature -Last 24 Hours Temperature 100.8 F Temperature 100.1 F Temperature 99.0 F Temperature 99.0 F Temperature 99.0 F Temperature 101.5 F Temperature 99.0 F Temperature 99.0 F Temperature 99.0 F Temperature 99.0 F Temperature 99.0 F Temperature 99.0 F Temperature 99.0 F Temperature 99.0 F Temperature 99.0 F Temperature 99 F Temperature 100.1 F Temperature 100.7 F - Labs CBC & Chem 7: 03/26/21 05:15 03/26/21 05:15 Labs: Abnormal lab results 03/25/21 03/25/21 03/25/21 Range/Units 13:45 17:32 21:30 WBC (4.5-11.0) K/mm3 RBC (3.65-5.03) M/mm3 Hgb (10.1-14.3) gm/dl Hct (30.3-42.9) % MCH (28-32) pg RDW (13.2-15.2) % Plt Count (140-440) K/mm3 ABG pO2 70.2 L (80.0-90.0) mm Hg ABG Hemoglobin 6.8 L (12.0-16.0) gm/dl Oxyhemoglobin 94.5 L (95.0-99.0) % Potassium (3.6-5.0) mmol/L BUN (7-17) mg/dL Creatinine (0.6-1.2) mg/dL Glucose (65-100) mg/dL POC Glucose 110 H (70-105) mg/dL Calcium (8.4-10.2) mg/dL Triglycerides (2-149) mg/dL Crossmatch See Detail 03/25/21 03/26/21 03/26/21 Range/Units 23:29 05:15 05:15 WBC 14.0 H (4.5-11.0) K/mm3 RBC 2.83 L (3.65-5.03) M/mm3 Hgb 7.6 L (10.1-14.3) gm/dl Hct 23.6 L (30.3-42.9) % MCH 27 L (28-32) pg RDW 17.1 H (13.2-15.2) % Plt Count 116 L (140-440) K/mm3 ABG pO2 (80.0-90.0) mm Hg ABG Hemoglobin (12.0-16.0) gm/dl Oxyhemoglobin (95.0-99.0) % Potassium 3.4 L (3.6-5.0) mmol/L BUN 70 H (7-17) mg/dL Creatinine 7.3 H (0.6-1.2) mg/dL Glucose 142 H (65-100) mg/dL POC Glucose 113 H (70-105) mg/dL Calcium 8.2 L (8.4-10.2) mg/dL Triglycerides 254 H (2-149) mg/dL Crossmatch 03/26/21 03/26/21 03/26/21 Range/Units 05:35 09:50 11:45 WBC (4.5-11.0) K/mm3 RBC (3.65-5.03) M/mm3 Hgb (10.1-14.3) gm/dl Hct (30.3-42.9) % MCH (28-32) pg RDW (13.2-15.2) % Plt Count (140-440) K/mm3 ABG pO2 79.9 L (80.0-90.0) mm Hg ABG Hemoglobin 7.1 L (12.0-16.0) gm/dl Oxyhemoglobin 94.9 L (95.0-99.0) % Potassium (3.6-5.0) mmol/L BUN (7-17) mg/dL Creatinine (0.6-1.2) mg/dL Glucose (65-100) mg/dL POC Glucose 130 H 123 H (70-105) mg/dL Calcium (8.4-10.2) mg/dL Triglycerides (2-149) mg/dL Crossmatch
--- NOTE | 2021-03-26 15:58 | XRay Report ---
XR chest 1V ap INDICATION / CLINICAL INFORMATION: Hypoxia. COMPARISON: 03/21/2021 FINDINGS: SUPPORT DEVICES: Unchanged. HEART /PULMONARY VASCULATURE: Unchanged. LUNGS / PLEURA: Airspace disease is worse compared to the prior examination. No pneumothorax. IMPRESSION: 1. Worsening airspace disease. Signer Name: Xavi Coker MD Signed: 03/26/2021 3:54 PM Workstation Name: [id number]
[2021-03-26] MEDS ORDERED: CEFEPIME/NS 1 GM/100 ML 1 GM/100 ML BAG IV SCH (16:00)
--- NOTE | 2021-03-26 17:39 | Progress Note ---
Assessment and Plan #Acute kidney injury: dialysis dependent Continue daily HD for now Strict input and output Avoid nephrotoxin Renally dose medications Keep MAP > 65 UF as tolerated, goal UF 1 L if hemodynamic status permits # Hyperkalemia, controlled with HD #Respiratory failure Covid 19 infection currently intubated UF as tolerated with HD, will be limited by hemodynamic instability #Hyperphosphatemia to be monitored Dialysis has been initiated #Hyponatremia: Improved with HD #Overall prognosis remains guarded Subjective Date of service: 03/26/21 Principal diagnosis: Ac hypoxemic resp failure; AE-Asthma; SAI; Crohn's; COVID- 19; Pneumonia Interval history: Remains intubated. Objective - Exam Narrative Exam: General: NAD HEENT: Oral mucosa moist Neck: Supple, no JVD Chest: Intubated Heart: RRR, S1 and S2, no pericardial rub Abdomen: Soft, nontender, no renal bruit Extremity: No peripheral cyanosis, edema Neurological: Eyes open but not following commands Dermatology: No skin rash Psych: Unable to assess Musculoskeletal: No joint effusion - Vital Signs Vital signs: Vital Signs - 12hr 03/26/21 03/26/21 03/26/21 06:00 06:30 07:00 Temperature Pulse Rate 112 H 111 H 111 H Pulse Rate [ Anterior Bilateral Throughout] Pulse Rate [ Bilateral] Pulse Rate [ From Monitor] Respiratory Rate Respiratory Rate [Anterior Bilateral Throughout] Respiratory Rate [Bilateral ] Blood Pressure 118/44 111/46 113/46 O2 Sat by Pulse 92 92 91 Oximetry 03/26/21 03/26/21 03/26/21 07:30 08:00 08:30 Temperature Pulse Rate 110 H 111 H 108 H Pulse Rate [ Anterior Bilateral Throughout] Pulse Rate [ Bilateral] Pulse Rate [ 102 H From Monitor] Respiratory 24 Rate Respiratory Rate [Anterior Bilateral Throughout] Respiratory Rate [Bilateral ] Blood Pressure 109/47 110/50 108/48 O2 Sat by Pulse 91 97 94 Oximetry 03/26/21 03/26/21 03/26/21 09:00 09:30 09:33 Temperature Pulse Rate 107 H 113 H 110 H Pulse Rate [ Anterior Bilateral Throughout] Pulse Rate [ Bilateral] Pulse Rate [ From Monitor] Respiratory Rate Respiratory Rate [Anterior Bilateral Throughout] Respiratory Rate [Bilateral ] Blood Pressure 110/41 116/49 116/49 O2 Sat by Pulse 91 90 95 Oximetry 03/26/21 03/26/21 03/26/21 09:40 10:00 10:30 Temperature Pulse Rate 117 H 112 H Pulse Rate [ 117 H Anterior Bilateral Throughout] Pulse Rate [ Bilateral] Pulse Rate [ From Monitor] Respiratory Rate Respiratory 30 H Rate [Anterior Bilateral Throughout] Respiratory Rate [Bilateral ] Blood Pressure 116/58 110/56 O2 Sat by Pulse 89 91 Oximetry 03/26/21 03/26/21 03/26/21 11:00 11:30 12:00 Temperature 100.8 F H Pulse Rate 112 H 110 H 110 H Pulse Rate [ Anterior Bilateral Throughout] Pulse Rate [ Bilateral] Pulse Rate [ 108 H From Monitor] Respiratory 24 Rate Respiratory Rate [Anterior Bilateral Throughout] Respiratory Rate [Bilateral ] Blood Pressure 121/45 121/46 120/53 O2 Sat by Pulse 90 93 95 Oximetry 03/26/21 03/26/21 03/26/21 12:23 12:30 13:00 Temperature Pulse Rate 108 H 110 H 110 H Pulse Rate [ Anterior Bilateral Throughout] Pulse Rate [ Bilateral] Pulse Rate [ From Monitor] Respiratory Rate Respiratory Rate [Anterior Bilateral Throughout] Respiratory Rate [Bilateral ] Blood Pressure 114/49 109/52 114/42 O2 Sat by Pulse 94 98 100 Oximetry 03/26/21 03/26/21 03/26/21 13:30 14:00 14:30 Temperature Pulse Rate 109 H 108 H 107 H Pulse Rate [ Anterior Bilateral Throughout] Pulse Rate [ Bilateral] Pulse Rate [ From Monitor] Respiratory Rate Respiratory Rate [Anterior Bilateral Throughout] Respiratory Rate [Bilateral ] Blood Pressure 101/38 110/46 107/45 O2 Sat by Pulse 100 99 100 Oximetry 03/26/21 03/26/21 03/26/21 15:00 15:30 16:00 Temperature Pulse Rate 112 H 111 H 107 H Pulse Rate [ Anterior Bilateral Throughout] Pulse Rate [ Bilateral] Pulse Rate [ 108 H From Monitor] Respiratory 24 Rate Respiratory Rate [Anterior Bilateral Throughout] Respiratory Rate [Bilateral ] Blood Pressure 120/48 120/46 102/43 O2 Sat by Pulse 100 100 97 Oximetry 03/26/21 03/26/21 03/26/21 16:04 16:05 16:30 Temperature Pulse Rate 108 H 120 H Pulse Rate [ 107 H Anterior Bilateral Throughout] Pulse Rate [ 124 H Bilateral] Pulse Rate [ From Monitor] Respiratory Rate Respiratory 26 H Rate [Anterior Bilateral Throughout] Respiratory 31 H Rate [Bilateral ] Blood Pressure 117/51 O2 Sat by Pulse 98 94 Oximetry 03/26/21 03/26/21 17:00 17:30 Temperature Pulse Rate 115 H 114 H Pulse Rate [ Anterior Bilateral Throughout] Pulse Rate [ Bilateral] Pulse Rate [ From Monitor] Respiratory 22 21 Rate Respiratory Rate [Anterior Bilateral Throughout] Respiratory Rate [Bilateral ] Blood Pressure 131/52 123/53 O2 Sat by Pulse 100 100 Oximetry - Lab 03/26/21 05:15 03/26/21 05:15 Most recent lab results ABG pH 7.370 pH Units (7.350-7.450) 03/26/21 09:50 ABG pCO2 42.1 mm Hg 03/26/21 09:50 ABG pO2 79.9 mm Hg (80.0-90.0) L 03/26/21 09:50 ABG HCO3 23.8 mmol/L (20.0-26.0) 03/26/21 09:50 ABG O2 Saturation 97.0 % (95.0-99.0) 03/26/21 09:50 Calcium 8.2 mg/dL (8.4-10.2) L 03/26/21 05:15 Phosphorus 10.80 mg/dL (2.5-4.5) H 03/23/21 04:30 Magnesium 3.50 mg/dL (1.7-2.3) H 03/23/21 04:30 Urine Creatinine 40.1 mg/dL (0.1-20.0) H 03/14/21 17:50 Urine Sodium 124 mmol/L 03/14/21 17:50 Medications & Allergies - Medications Allergies/Adverse Reactions: Allergies acetaminophen [From Percocet] Adverse Reaction (Verified 03/13/21 12:45) Swelling hydrocodone bitartrate [From Vicodin] Adverse Reaction (Verified 03/13/21 12:45) Swelling oxycodone HCl [From Percocet] Adverse Reaction (Verified 03/13/21 12:45) Swelling Home Medications: Home Medications Medication Instructions Recorded Confirmed Last Taken Type Chlorhexidine Mouthwash [Peridex] 15 ml MM BID #1 bottle 10/11/20 03/13/21 Unknown Rx Clindamycin [Clindamycin CAP] 300 mg PO Q8H #21 cap 10/11/20 03/13/21 Unknown Rx Naproxen 500 mg PO Q12H PRN #12 tablet 10/11/20 03/13/21 Unknown Rx Butalb/Acetamin/Caff 50-325-40 1 - 2 tab PO Q6HR PRN #15 tab 12/05/20 03/13/21 Unknown Rx [Fioricet 50-325-40] Famotidine [Pepcid] 20 mg PO BID #30 tablet 12/05/20 03/13/21 Unknown Rx Ketorolac [Toradol] 10 mg PO Q8H PRN #20 tablet 12/05/20 03/13/21 Unknown Rx Ondansetron [Zofran Odt] 4 mg PO Q6HR PRN #20 tab.rapdis 12/05/20 03/13/21 Unknown Rx Albuterol Sulfate [Proair 90 mcg IH Q4HR PRN #2 aer.pow.[email or web address] 01/01/21 03/13/21 Unknown Rx Respiclick] Mupirocin [Bactroban 2% OINT] 1 applic TP BID 7 Days #1 tube 01/01/21 03/13/21 Unknown Rx Triamcinolone Aceton 0.1% (Nf) 1 applic TP BID 14 Days #1 tube 01/01/21 03/13/21 Unknown Rx [Kenalog (NF)] predniSONE [Deltasone] 40 mg PO QDAY #8 tab 01/01/21 03/13/21 Unknown Rx Active Medications: Generic Name Dose Route Start Last Admin Trade Name Freq PRN Reason Stop Dose Admin Acetaminophen 650 mg 03/13/21 19:30 03/25/21 20:00 Acetaminophen 325 Mg Tab PO 650 mg Q4H PRN Administration Pain MILD(1-3)/Fever >100.5/SALAS Albuterol 2.5 mg 03/19/21 00:53 Albuterol 2.5 Mg/3 Ml Nebu IH Q4HRT PRN Shortness Of Breath Albuterol/Ipratropium 1 ampul 03/19/21 08:00 03/26/21 16:05 Ipratropium/Albuterol Sulfate 3 Ml Ampul.Neb IH 1 ampul Q6HRT INESSA Administration Lipase/Protease/Amylase 1 each 03/15/21 11:42 Lipase 10,500/Protease 25,000/Amylase 43,750 (Units) Dr White FEEDTUBE PRN PRN For Clogged Feeding Tube Ascorbic Acid 500 mg 03/14/21 22:00 03/26/21 09:14 Ascorbic Acid 500 Mg Tab PO 500 mg BID INESSA Administration Bisacodyl 10 mg 03/22/21 22:00 03/25/21 21:38 Bisacodyl 10 Mg Rect Supp MD 10 mg QHS INESSA Administration Ciprofloxacin/Dexamethasone 1 drops 03/24/21 18:00 03/26/21 17:06 Ciprofloxacin/Dexameth Otic Susp 7.5ml TP 03/29/21 17:59 1 drops QID INESSA Administration Dextrose 50 ml 03/14/21 11:02 03/15/21 11:40 Dextrose 50% In Water (25gm) 50 Ml Syringe IV 50 ml Q30MIN PRN Administration Hypoglycemia Protocol Famotidine 10 mg 03/17/21 22:00 03/26/21 09:14 Famotidine 10 Mg Tab PO 10 mg BID INESSA Administration Fentanyl 50 mcg 03/15/21 10:43 Fentanyl 100 Mcg/2 Ml Inj IV Q10MIN PRN ANALGESIA Hydralazine HCl 10 mg 03/15/21 10:10 03/15/21 10:32 Hydralazine 20 Mg/1 Ml Inj IV 10 mg Q4HR PRN Administration Hypertension Hydrophilic Ointment 1 applic 03/14/21 17:50 Lip Therapy Vaseline TP Q2HR PRN Dry Lips Propofol 1,000 mg in 100 mls @ 4.123 mls/hr 03/15/21 11:00 03/26/21 12:48 Diprivan 10 Mg/Ml IV 25 mcg/kg/min TITR INESSA 20.616 mls/hr Administration Protocol 5 MCG/KG/MIN Fentanyl Citrate 2,000 mcg in 100 mls @ 6.872 mls/hr 03/15/21 11:00 03/26/21 13:58 Fentanyl Drip Premix IV 2 mcg/kg/hr TITR INESSA 13.744 mls/hr Administration Protocol 1 MCG/KG/HR Sodium Chloride 500 mls @ 1 mls/hr 03/16/21 17:19 Nacl 0.9% 500 Ml IV DIRECT PRN ARTERIAL LINE FLUSH Vasopressin 20 unit/ Sodium 101 mls @ 9.09 mls/hr 03/21/21 16:00 03/24/21 08:10 Chloride IV 0 units/min TITR INESSA 0 mls/hr Titration Protocol 0.03 UNITS/MIN Sodium Chloride 100 mls @ 999 mls/hr 03/21/21 20:23 Nacl 0.9% IV KARLOS PRN Hypotension NORepinephrine/NS 8 MG-250 ML 8 mg in 250 mls @ 3.75 mls/hr 03/23/21 11:00 03/24/21 14:31 Norepinephrine/Ns 8 Mg-250 Ml (Double Conc) IV 0 mcg/min TITRATE INESSA 0 mls/hr Titration Protocol 2 MCG/MIN Sodium Chloride 100 mls @ 999 mls/hr 03/26/21 09:05 Nacl 0.9% IV KARLOS PRN Hypotension Cefepime HCl 1 gm in 100 mls @ 200 mls/hr 03/26/21 16:00 03/26/21 17:05 Cefepime/Ns 1 Gm/100 Ml IV 200 mls/hr Q24H INESSA Administration Protocol Insulin Human Lispro 0 unit 03/14/21 12:00 03/26/21 12:44 Insulin Lispro 100 Unit/Ml SUB-Q Not Given Q6HR [facility] Protocol Lorazepam 1 mg 03/13/21 19:40 03/18/21 14:11 Lorazepam 2 Mg/Ml Vial IV 1 mg Q4H PRN Administration Anxiety Multi-Ingred Cream/Lotion/Oil/Oint 1 applic 03/14/21 17:50 Mineral Oil/Petrolatum, White Ophth Oint 3.5 Gm OU Q4HR PRN Dry Eye(s) Ondansetron HCl 4 mg 03/13/21 19:30 03/21/21 12:05 Ondansetron 4 Mg/2 Ml Inj IV 4 mg Q8H PRN Administration Nausea And Vomiting Senna/Docusate Sodium 1 tab 03/14/21 22:00 03/26/21 10:58 Sennosides/Docusate Sodium 8.6/50 Mg Tab FEEDTUBE 1 tab BID INESSA Administration Simple Syrup 15 ml 03/15/21 11:42 Simple Syrup 15 Ml FEEDTUBE PRN PRN Hypoglycemia Simple Syrup 30 ml 03/15/21 11:42 Simple Syrup 15 Ml FEEDTUBE PRN PRN Hypoglycemia Sodium Bicarbonate 325 mg 03/15/21 11:42 03/21/21 17:21 Sodium Bicarbonate 325 Mg Tab FEEDTUBE 325 mg PRN PRN Administration For Clogged Feeding Tube Sodium Chloride 10 ml 03/13/21 22:00 11/12/21 09:26 Sodium Chloride 0.9% 10 Ml Flush Syringe IV 10 ml BID INESSA Administration Sodium Chloride 10 ml 03/13/21 19:30 Sodium Chloride 0.9% 10 Ml Flush Syringe IV PRN PRN LINE FLUSH Zinc Sulfate 220 mg 03/14/21 22:00 03/26/21 09:15 Zinc Sulfate 220 Mg Cap PO 220 mg BID INESSA Administration
--- NOTE | 2021-03-26 18:33 | Progress Note ---
<ANCELMO GONZALEZ - Last Filed: 03/26/21 18:28> Assessment and Plan Assessment and plan: This is a 31-year-old female with history of asthma, morbid obesity, and Crohn's disease who came in complaining of severe wheezing and shortness of breath for the last 4 days that was not relieved by her home nebs and rescue inhalers. Patient was initially admitted to IMCU on bipap but was subsequently intubated due to severe respiratory distress and was unable to protect her aiway. Patient was found to have acute respiratory failure 2/2 to COVID PNA requiring vent support and SAI. Hospital Course to Date: 03/14/21- Patient is s/p intubation from this morning, sedated on propofol and fentanyl RASS -3 to -4. ETT above the clavicles advanced by 2cc. Continue nebs and IV steroids per [facility]. COVID swab pending. Hyperkalemia improved, X1 dose of kayaxalate ordered. Low BP and low urine output this am, fluid bolus challenge, 500cc of NS bolus given. Continue to monitor electrolytes and renal function, repeat BMP this afternoon. 03/15: Patient's renal function noted to be significantly worse today, patient was hyperkalemic and this was medically treated. Patient initiated on hemodialysis today. Patient disease was consulted today. 03/16: No acute events reported overnight, patient received hemodialysis yesterday. Patient is currently on propofol and fentanyl. 03/17: Patient received hemodialysis today, patient is slightly acidotic on ABG however [facility] is allowing for permissive hypercapnia, tracheal aspirate with Staph aureus and ID is aware. 03/18: Patient is having high residuals today and Reglan was started, patient will receive HD daily per nephrology, correct her change in FiO2 as tolerated. 03/19: HD per nephrology today, antibiotics changed to cefazolin. Patient did not tolerate tube feedings as she had high residuals this morning and they were turned off. Not restarted yet. Updated family at bedside today 03/20: HD today, ddimer noted to be >1000, Tolerating trickle TF. Stat BLE dopplar US 03/21: Patient is not tolerating TF, CXR shows worsening infiltrates, [facility] made c hanges to vent, TF on hold and started on IVF. 03/22/21- Patient remains intubated and on sedation. Persistent vomiting, TF held overnight, no documented BM, on reglan BR added, Shaun citarte & supp. HD today. Plan to restart TF at 10ml/hr, will reevaluate in the am. Persistent thrombocytopenia, Hep on hold, HIT panel ordered, PO eliquis initiated. 03/23/21- Patient remains on the vent and sedated on propofol and fentanyl RASS - 2 to -3. Possible SAT today as tolerated. Patient tolerated trickle feeds overnight, plan to advance TF by 10cc Q8 to 12hrs. Continue current BR and continue reglan for now. Slightr worsening in acidosis from this am, d/w [facility] vent setting adjusted, will repeat ABG at 9pm. 03/24/21- Patient is on the vent and sedated, on fentanyl and propfol. Bilateral subconjunctival hemorrhage with periorbital edema noted this am, pupils are round and reactive, will Cipro/Dex [id number]. Worsening of kidney function from today's labs, plan for HD per Nephro. 03/25/21- Patient remains intubated and on sedatin, RASS 0 to -1, no longer on pressors. Sudden drop in H&H this am, bilateral subconjunctival hemorrhage with no sig change, no signs of any active bleeding. Patient appears neurologically intact, following commands, pupils are round and reactive with + gag and cough, moved all extremities. D/w [facility] patient is too unstable for CT at this time. Eliquis D/Devaughn, 1unit of PRBC ordered. Will continue to trend CBC. Plan for another section of HD today 03/26/21- Patient remains on the vent and sedated. VENICE reported from overnight. Plan for HD again today. H&H back up and stable, no AC at this time, SCDs for VTE phro. D/w [facility] patient is still too unstable for CT scan, will continue neuro exam and will continue to monitor H&H. Assessment and Plan #Neuro: Sedated - Intubated and sedated on propofol and fentanyl RASS -1 - Titrate sedation for RASS goal 0 to -1 - Daily SAT and SBT per [facility] - Avoid benzodiazepine's, reduce the possibility of delirium - Prn analgesia for CPOT greater than 3 - Maintenance of sleep-wake cycle - Bilateral wrist restraints in place for safety #Subconjunctival hemorrhage #Periorbital Edema - Acute swelling/edema with subconjunctival hemorrhage noted this am - No report of possible trauma/injury - pupils are round and reactive, no drainage noted - Patient is sedated on fentanyl and propofol RASS -1 to -2, following commands - Possibly due to elevated venous pressure vs coughing - Cipro/Dex was initiated [id number] - Eliquis on hold - Sudden drop in H&H, 1unit of PRBCs ordered - Will continue to monitor #CV:Tachycardia #HTN - ST on the monitor - Back on low dose pressors - Continue blood pressure monitor per protocol - Maintain MAP above 65 - Eliquis on hold - C/f for HIT, HIT panel pending - SCDs for VTE proh #Acute Respiratory Failure #COVID PNA #RUL PNA #Asthma Exacerbation #Bronchospasm- resolved - 03/13 CXR- possible minimal patchy RUL pneumonia - 03/14 CXR- increasing patchy parenchymal opacities bilaterally - C/f for aspiration while patient was on Bipap - Intubated on 03/14 for airway protection - High Peak pressure post intubation--> bronchospasm - COVID swab positive - Vent setting: PRVC- 60%,12,24,500 - AM ABG noted - Vent adjusted by CCM - CCM consulted, appreciate recommendations - Continue IV Steroids and Nebs per CCM - VAP bundle addressed - Aspiration precaution HOB above 30 - Daily SBT and SAT trials as tolerated - Daily ABG and CXR - Continue SPO2 monitoring for SPO2 goal above 92% #GI: Projectile Vomitting- resolved - Patient on enteral nutrition - TF now at goal - BM this am - 03/22 BR adjusted, X1 dose of mag citrate and Supp - Continue BR: colace and senokot - Continue Pepcid and reglan - PRN entiemetic for N/V #:Acute Kidney Injury most likely ATN #Hyperkalemia- resolved - Initial cr. was 0.8-- up to 10.8 this am - HD was initiated on 03/15 - Patient is oliguric - Last HD on 03/22 - Plan for HD today - Continue HD per Nephro - Strict intake and output - Avoid nephrotoxic medications; Renally dose medications - Monitor and replace electrolytes as needed - Nephro on consult #ID:COVID Pneumonia #RUL PNA #Possible aspiration Pneumonia #Leukocytosis - WBCs downtrending today - Febrile overnight, TMAX 101.4 - COVID swab positive - 03/13 BC x2 no growth to date - 03/14 tracheal aspirate with Staph aureus (ID aware) - Patient received X1 dose of redemsevir, was D/C due to worsen renal function - Received X1 dose actemra - Continue IV Abx per ID - Trend COVID-19 inflammatory markers - Isolation/droplet precautions - On Vitamin C/vitamin D/zinc - Daily CBC monitor - ID on consult #Endo: Hyperglycemia - Hemoglobin A1c 6.3 - Continue SSI Q6hrs - While critically ill target blood glucose of 140-180 - Avoid hypoglycemia The high probability of a clinically significant, sudden or life threatening deterioration of the [multiple] system(s) required my full and direct attention, intervention and personal management. The aggregate critical care time was [60] minutes. This time is in addition to time spent performing reported procedures but includes the following: [x] Data Review and interpretation [x] Patient assessment and monitoring of vital signs [x] Documentation [x] Medication orders and management Disposition Plan: ICU Total Time Spent with Patient (Minutes): 60 History Interval history: Patient is seen and examined at the bedside. Patient remains on the vent and sedated. RASS -1, pupils are round and reactive, following simple commands. VENICE overnight Hospitalist Physical - Constitutional Vitals: Temp Pulse Resp BP Pulse Ox 100.8 F H 114 H 21 123/53 100 03/26/21 12:00 03/26/21 17:30 03/26/21 17:30 03/26/21 17:30 03/26/21 17:30 General appearance: Present: no acute distress, well-nourished, obese, other (Intubated and sedated) - EENT Eyes: Present: PERRL ENT: hearing intact - Neck Neck: Present: normal ROM - Respiratory Respiratory: bilateral: rhonchi - Cardiovascular Rhythm: regular Heart Sounds: Present: S1 & S2 - Extremities Extremities: no ischemia, pulses intact, pulses symmetrical Extremity abnormal: edema - Peripheral Assessment Generalized Edema Type: Non-pitting Edema Degree: 1+ Capillary Refill: < 3 seconds Skin Temperature: Warm Peripheral Pulses: within normal limits - Abdominal General gastrointestinal: soft, non-tender, normal bowel sounds - Integumentary Integumentary: Present: warm, dry - Psychiatric Psychiatric: other (Intubated and sedated) - Neurologic Neurologic: other (Intubated and sedated) - Allied Health Allied health notes reviewed: nursing Results - Labs CBC & Chem 7: 03/26/21 05:15 03/26/21 05:15 Labs: Laboratory Last Values WBC 14.0 K/mm3 (4.5-11.0) H 03/26/21 05:15 RBC 2.83 M/mm3 (3.65-5.03) L 03/26/21 05:15 Hgb 7.6 gm/dl (10.1-14.3) L 03/26/21 05:15 Hct 23.6 % (30.3-42.9) L 03/26/21 05:15 MCV 83 fl (79-97) 03/26/21 05:15 MCH 27 pg (28-32) L 03/26/21 05:15 MCHC 32 % (30-34) 03/26/21 05:15 RDW 17.1 % (13.2-15.2) H 03/26/21 05:15 Plt Count 116 K/mm3 (140-440) L 03/26/21 05:15 Lymph % (Auto) 7.8 % (13.4-35.0) L 03/14/21 06:21 [place] % (Auto) 6.7 % (0.0-7.3) 03/14/21 06:21 Eos % (Auto) 0.0 % (0.0-4.3) 03/14/21 06:21 Baso % (Auto) 0.1 % (0.0-1.8) 03/14/21 06:21 Lymph # (Auto) 1.6 K/mm3 (1.2-5.4) 03/14/21 06:21 [place] # (Auto) 1.3 K/mm3 (0.0-0.8) H 03/14/21 06:21 Eos # (Auto) 0.0 K/mm3 (0.0-0.4) 03/14/21 06:21 Baso # (Auto) 0.0 K/mm3 (0.0-0.1) 03/14/21 06:21 Seg Neutrophils % 85.4 % (40.0-70.0) H 03/14/21 06:21 Seg Neutrophils # 17.1 K/mm3 (1.8-7.7) H 03/14/21 06:21 PT 15.8 Sec. (12.2-14.9) H 03/22/21 13:40 INR 1.14 (0.87-1.13) H 03/22/21 13:40 APTT 26.8 Sec. (24.2-36.6) 03/22/21 13:40 D-Dimer > 33705 ng/mlDDU (0-234) H 03/22/21 13:40 ABG pH 7.370 pH Units (7.350-7.450) 03/26/21 09:50 POC ABG pCO2 50.3 mmHg (32.0-48.0) H 03/23/21 21:00 ABG pCO2 42.1 mm Hg 03/26/21 09:50 POC ABG pO2 114.4 mmHg (83-108) H 03/23/21 21:00 ABG pO2 79.9 mm Hg (80.0-90.0) L 03/26/21 09:50 POC ABG HCO3 20.3 03/23/21 21:00 ABG HCO3 23.8 mmol/L (20.0-26.0) 03/26/21 09:50 ABG O2 Saturation 97.0 % (95.0-99.0) 03/26/21 09:50 ABG O2 Content 9.6 (0.0-44) 03/26/21 09:50 POC ABG Base Excess -7.1 03/23/21 21:00 ABG Base Excess -1.4 mmol/L (-2.0-3.0) 03/26/21 09:50 ABG Hemoglobin 7.1 gm/dl (12.0-16.0) L 03/26/21 09:50 ABG Oxyhemoglobin 97.1 (94-98) 03/23/21 21:00 ABG Carboxyhemoglobin 1.6 % (0.0-5.0) 03/26/21 09:50 ABG Methemoglobin 0.5 % (0.0-1.5) 03/26/21 09:50 ABG Sodium 130.4 mmol/L (136.0-145.0) L 03/23/21 21:00 ABG Potassium 5.1 mmol/L (3.40-4.50) H 03/23/21 21:00 ABG Chloride 100.0 mmol/L (98-107) 03/23/21 21:00 ABG Glucose 126 mg/dL (65-95) H 03/23/21 21:00 Oxyhemoglobin 94.9 % (95.0-99.0) L 03/26/21 09:50 Carboxyhemoglobin 0.2 (0.5-1.5) L 03/23/21 21:00 FiO2 60 % 03/26/21 09:50 FiO2 % 80.0 03/23/21 21:00 Sodium 138 mmol/L (137-145) 03/26/21 05:15 Potassium 3.4 mmol/L (3.6-5.0) L 03/26/21 05:15 Chloride 100.6 mmol/L (98-107) 03/26/21 05:15 Carbon Dioxide 23 mmol/L (22-30) 03/26/21 05:15 Anion Gap 18 mmol/L 03/26/21 05:15 BUN 70 mg/dL (7-17) H 03/26/21 05:15 Creatinine 7.3 mg/dL (0.6-1.2) H 03/26/21 05:15 Estimated GFR 8 ml/min 03/26/21 05:15 BUN/Creatinine Ratio 10 % 03/26/21 05:15 Glucose 142 mg/dL (65-100) H 03/26/21 05:15 POC Glucose 121 mg/dL (70-105) H 03/26/21 16:36 Hemoglobin A1c 6.3 % (4-6) H 03/15/21 05:09 Lactic Acid 2.00 mmol/L (0.7-2.0) 03/14/21 18:47 Calcium 8.2 mg/dL (8.4-10.2) L 03/26/21 05:15 Phosphorus 10.80 mg/dL (2.5-4.5) H 03/23/21 04:30 Magnesium 3.50 mg/dL (1.7-2.3) H 03/23/21 04:30 Ferritin 151.6 ng/mL (10.0-200.0) 03/18/21 04:30 Total Bilirubin 0.20 mg/dL (0.1-1.2) 03/17/21 05:23 AST 35 units/L (5-40) 03/17/21 05:23 ALT 24 units/L (7-56) 03/17/21 05:23 Alkaline Phosphatase 78 units/L (35-129) 03/17/21 05:23 Lactate Dehydrogenase 477 units/L (91-180) H 03/18/21 04:30 C-Reactive Protein 9.40 mg/dL (0.00-1.30) H 03/22/21 10:00 Total Protein 6.7 g/dL (6.3-8.2) 03/17/21 05:23 Albumin 3.2 g/dL (3.9-5) L 03/17/21 05:23 Albumin/Globulin Ratio 0.9 % 03/17/21 05:23 Triglycerides 254 mg/dL (2-149) H 03/26/21 05:15 Procalcitonin < 0.05 ng/mL (<0.15) 03/13/21 15:40 HCG, Qual Negative (Negative) 03/13/21 13:26 Arterial Blood Glucose 126 mg/dL (65-95) H 03/23/21 21:00 Arterial Blood Ionized Calcium 4.4 mg/dL (4.6-5.3) L 03/23/21 21:00 Urine Creatinine 40.1 mg/dL (0.1-20.0) H 03/14/21 17:50 Urine Sodium 124 mmol/L 03/14/21 17:50 Random Vancomycin 11.2 ug/mL (0-40.0) 03/20/21 04:23 Coronavirus (PCR) Positive (Negative) A 03/14/21 Unknown Hepatitis A IgM Ab Non-reactive (NonReactive) 03/15/21 05:09 Hep Bs Antigen Nonreactive (Negative) 03/15/21 05:09 Hep B Core IgM Ab Non-reactive (NonReactive) 03/15/21 05:09 Hepatitis C Antibody Non-reactive (NonReactive) 03/15/21 05:09 Blood Type O POSITIVE 03/25/21 13:45 Antibody Screen Negative 03/25/21 13:45 Crossmatch See Detail 03/25/21 13:45 Microbiology: Microbiology 03/23/21 15:34 Peripheral/Venous Blood Culture - Preliminary NO GROWTH AFTER 48 HOURS 03/23/21 15:44 Peripheral/Venous Blood Culture - Preliminary NO GROWTH AFTER 48 HOURS [place]/IV: Voiding Method Incontinent Active Medications - Current Medications Current Medications: Generic Name Dose Route Start Last Admin Trade Name Freq PRN Reason Stop Dose Admin Acetaminophen 650 mg 03/13/21 19:30 03/25/21 20:00 Acetaminophen 325 Mg Tab PO 650 mg Q4H PRN Administration Pain MILD(1-3)/Fever >100.5/SALAS Albuterol 2.5 mg 03/19/21 00:53 Albuterol 2.5 Mg/3 Ml Nebu IH Q4HRT PRN Shortness Of Breath Albuterol/Ipratropium 1 ampul 03/19/21 08:00 03/26/21 16:05 Ipratropium/Albuterol Sulfate 3 Ml Ampul.Neb IH 1 ampul Q6HRT INESSA Administration Lipase/Protease/Amylase 1 each 03/15/21 11:42 Lipase 10,500/Protease 25,000/Amylase 43,750 (Units) Dr White FEEDTUBE PRN PRN For Clogged Feeding Tube Ascorbic Acid 500 mg 03/14/21 22:00 03/26/21 09:14 Ascorbic Acid 500 Mg Tab PO 500 mg BID INESSA Administration Bisacodyl 10 mg 03/22/21 22:00 03/25/21 21:38 Bisacodyl 10 Mg Rect Supp SC 10 mg QHS INESSA Administration Ciprofloxacin/Dexamethasone 1 drops 03/24/21 18:00 03/26/21 17:06 Ciprofloxacin/Dexameth Otic Susp 7.5ml TP 03/29/21 17:59 1 drops QID INESSA Administration Dextrose 50 ml 03/14/21 11:02 03/15/21 11:40 Dextrose 50% In Water (25gm) 50 Ml Syringe IV 50 ml Q30MIN PRN Administration Hypoglycemia Protocol Famotidine 10 mg 03/17/21 22:00 03/26/21 09:14 Famotidine 10 Mg Tab PO 10 mg BID INESSA Administration Fentanyl 50 mcg 03/15/21 10:43 Fentanyl 100 Mcg/2 Ml Inj IV Q10MIN PRN ANALGESIA Hydralazine HCl 10 mg 03/15/21 10:10 03/15/21 10:32 Hydralazine 20 Mg/1 Ml Inj IV 10 mg Q4HR PRN Administration Hypertension Hydrophilic Ointment 1 applic 03/14/21 17:50 Lip Therapy Vaseline TP Q2HR PRN Dry Lips Propofol 1,000 mg in 100 mls @ 4.123 mls/hr 03/15/21 11:00 03/26/21 17:44 Diprivan 10 Mg/Ml IV 25 mcg/kg/min TITR INESSA 20.616 mls/hr Administration Protocol 5 MCG/KG/MIN Fentanyl Citrate 2,000 mcg in 100 mls @ 6.872 mls/hr 03/15/21 11:00 03/26/21 13:58 Fentanyl Drip Premix IV 2 mcg/kg/hr TITR INESSA 13.744 mls/hr Administration Protocol 1 MCG/KG/HR Sodium Chloride 500 mls @ 1 mls/hr 03/16/21 17:19 Nacl 0.9% 500 Ml IV DIRECT PRN ARTERIAL LINE FLUSH Vasopressin 20 unit/ Sodium 101 mls @ 9.09 mls/hr 03/21/21 16:00 03/24/21 08:10 Chloride IV 0 units/min TITR INESSA 0 mls/hr Titration Protocol 0.03 UNITS/MIN Sodium Chloride 100 mls @ 999 mls/hr 03/21/21 20:23 Nacl 0.9% IV KARLOS PRN Hypotension NORepinephrine/NS 8 MG-250 ML 8 mg in 250 mls @ 3.75 mls/hr 03/23/21 11:00 03/24/21 14:31 Norepinephrine/Ns 8 Mg-250 Ml (Double Conc) IV 0 mcg/min TITRATE INESSA 0 mls/hr Titration Protocol 2 MCG/MIN Sodium Chloride 100 mls @ 999 mls/hr 03/26/21 09:05 Nacl 0.9% IV KARLOS PRN Hypotension Cefepime HCl 1 gm in 100 mls @ 200 mls/hr 03/26/21 16:00 03/26/21 17:05 Cefepime/Ns 1 Gm/100 Ml IV 200 mls/hr Q24H INESSA Administration Protocol Insulin Human Lispro 0 unit 03/14/21 12:00 03/26/21 17:44 Insulin Lispro 100 Unit/Ml SUB-Q Not Given Q6HR INESSA Protocol Lorazepam 1 mg 03/13/21 19:40 03/18/21 14:11 Lorazepam 2 Mg/Ml Vial IV 1 mg Q4H PRN Administration Anxiety Multi-Ingred Cream/Lotion/Oil/Oint 1 applic 03/14/21 17:50 Mineral Oil/Petrolatum, White Ophth Oint 3.5 Gm OU Q4HR PRN Dry Eye(s) Ondansetron HCl 4 mg 03/13/21 19:30 03/21/21 12:05 Ondansetron 4 Mg/2 Ml Inj IV 4 mg Q8H PRN Administration Nausea And Vomiting Senna/Docusate Sodium 1 tab 03/14/21 22:00 03/26/21 10:58 Sennosides/Docusate Sodium 8.6/50 Mg Tab FEEDTUBE 1 tab BID INESSA Administration Simple Syrup 15 ml 03/15/21 11:42 Simple Syrup 15 Ml FEEDTUBE PRN PRN Hypoglycemia Simple Syrup 30 ml 03/15/21 11:42 Simple Syrup 15 Ml FEEDTUBE PRN PRN Hypoglycemia Sodium Bicarbonate 325 mg 03/15/21 11:42 03/21/21 17:21 Sodium Bicarbonate 325 Mg Tab FEEDTUBE 325 mg PRN PRN Administration For Clogged Feeding Tube Sodium Chloride 10 ml 03/13/21 22:00 03/26/21 09:26 Sodium Chloride 0.9% 10 Ml Flush Syringe IV 10 ml BID INESSA Administration Sodium Chloride 10 ml 03/13/21 19:30 Sodium Chloride 0.9% 10 Ml Flush Syringe IV PRN PRN LINE FLUSH Zinc Sulfate 220 mg 03/14/21 22:00 03/26/21 09:15 Zinc Sulfate 220 Mg Cap PO 220 mg BID INESSA Administration Nutrition/Malnutrition Assess - Dietary Evaluation Nutrition/Malnutrition Findings: Nutrition Notes Start: 03/15/21 11:0 6 Freq: Status: Active Protocol: Document 03/26/21 15:08 REJI (Rec: 03/26/21 15:17 [facility] [id number]) Nutrition Notes Initial or Follow up Reassessment Current Diagnosis Acute Kidney Injury, Hypertension,Respiratory Failure Other Pertinent Diagnosis COVID-19 pneu, periorbital edema Current Diet TF - Nepro at 44ml/hr Labs/Tests K 3.4 BUN 70 Cr 7.3 Triglycerides 254 Pertinent Medications Propofol at 20.616ml/hr ( provides 544 kcal) Height 5 ft 5 in Weight 137.438 kg [place] Body Weight (kg) 56.81 BMI 50.4 Weight Status Morbidly Obese Subjective/Other Information Unable to reach pt's RN via phone to assess TF tolerance. Pt remains on vent support. Burn Absent Trauma Absent #1 Nutrition Diagnosis Swallowing difficulty Diagnosis Progress(for reassessment Continues documentation) Is patient on ventilator? Yes Is Patient Ambulatory and/or Out of Bed No REE-([facility]-confined to bed) 2515.536 Kcal/Kg value to use for calculation 14 Approximate Energy Requirements Using 1924 kcal/Kg Calculation Used for Recommendations Kcal/kg Additional Notes Pro needs >1.2g/kg adjBW: > 117g/day Fluid needs 1-1.5L/day Nutrition Intervention Nutrition Support: Continue Nepro at 44ml/hr. Goal #1 TF tolerance Goal #2 TF to meet at least 75% energy and pro needs Follow-Up By: 03/27/21 Additional Comments F/U: TF tolerance, vent status , rectal tube <WESLEY LANCASTER E - Last Filed: 03/27/21 10:59> Assessment and Plan Assessment and plan: I saw and evaluated the patient. I agree with the findings and the plan of care as documented in the Nurse Practitioner's~note, with the following corrections and additions. Hospitalist Physical - Constitutional Vitals: Temp Pulse Resp BP Pulse Ox 102.4 F H 124 H 16 123/42 98 03/27/21 07:18 03/27/21 10:30 03/27/21 10:30 03/27/21 10:30 03/27/21 10:30 Results - Labs CBC & Chem 7: 03/27/21 08:20 03/27/21 08:20 Labs: Laboratory Last Values WBC 13.2 K/mm3 (4.5-11.0) H 03/27/21 08:20 RBC 2.82 M/mm3 (3.65-5.03) L 03/27/21 08:20 Hgb 7.9 gm/dl (10.1-14.3) L 03/27/21 08:20 Hct 23.5 % (30.3-42.9) L 03/27/21 08:20 MCV 83 fl (79-97) 03/27/21 08:20 MCH 28 pg (28-32) 03/27/21 08:20 MCHC 33 % (30-34) 03/27/21 08:20 RDW 17.3 % (13.2-15.2) H 03/27/21 08:20 Plt Count 125 K/mm3 (140-440) L 03/27/21 08:20 Lymph % (Auto) 7.8 % (13.4-35.0) L 03/14/21 06:21 [place] % (Auto) 6.7 % (0.0-7.3) 03/14/21 06:21 Eos % (Auto) 0.0 % (0.0-4.3) 03/14/21 06:21 Baso % (Auto) 0.1 % (0.0-1.8) 03/14/21 06:21 Lymph # (Auto) 1.6 K/mm3 (1.2-5.4) 03/14/21 06:21 [place] # (Auto) 1.3 K/mm3 (0.0-0.8) H 03/14/21 06:21 Eos # (Auto) 0.0 K/mm3 (0.0-0.4) 03/14/21 06:21 Baso # (Auto) 0.0 K/mm3 (0.0-0.1) 03/14/21 06:21 Seg Neutrophils % 85.4 % (40.0-70.0) H 03/14/21 06:21 Seg Neutrophils # 17.1 K/mm3 (1.8-7.7) H 03/14/21 06:21 PT 15.8 Sec. (12.2-14.9) H 03/22/21 13:40 INR 1.14 (0.87-1.13) H 03/22/21 13:40 APTT 26.8 Sec. (24.2-36.6) 03/22/21 13:40 D-Dimer > 98973 ng/mlDDU (0-234) H 03/22/21 13:40 ABG pH 7.361 (7.320-7.450) 03/27/21 03:20 POC ABG pCO2 50.0 mmHg (32.0-48.0) H 03/27/21 03:20 ABG pCO2 42.1 mm Hg 03/26/21 09:50 POC ABG pO2 58.3 mmHg (83-108) L 03/27/21 03:20 ABG pO2 79.9 mm Hg (80.0-90.0) L 03/26/21 09:50 POC ABG HCO3 27.7 03/27/21 03:20 ABG HCO3 23.8 mmol/L (20.0-26.0) 03/26/21 09:50 ABG O2 Saturation 88.9 (0-100) 03/27/21 03:20 ABG O2 Content 9.6 (0.0-44) 03/26/21 09:50 POC ABG Base Excess 1.6 03/27/21 03:20 ABG Base Excess -1.4 mmol/L (-2.0-3.0) 03/26/21 09:50 ABG Hemoglobin 11.3 (12.0-17.5) L 03/27/21 03:20 ABG Oxyhemoglobin 88.5 (94-98) L 03/27/21 03:20 ABG Carboxyhemoglobin 1.6 % (0.0-5.0) 03/26/21 09:50 ABG Methemoglobin 0.3 (0.0-1.5) 03/27/21 03:20 ABG Sodium 136.0 mmol/L (136.0-145.0) 03/27/21 03:20 ABG Potassium 3.5 mmol/L (3.40-4.50) 03/27/21 03:20 ABG Chloride 104.0 mmol/L (98-107) 03/27/21 03:20 ABG Glucose 132 mg/dL (65-95) H 03/27/21 03:20 Oxyhemoglobin 94.9 % (95.0-99.0) L 03/26/21 09:50 Carboxyhemoglobin 0.2 (0.5-1.5) L 03/27/21 03:20 FiO2 60 % 03/26/21 09:50 FiO2 % 60.0 03/27/21 03:20 Sodium 141 mmol/L (137-145) 03/27/21 08:20 Potassium 3.7 mmol/L (3.6-5.0) 03/27/21 08:20 Chloride 102.2 mmol/L (98-107) 03/27/21 08:20 Carbon Dioxide 24 mmol/L (22-30) 03/27/21 08:20 Anion Gap 19 mmol/L 03/27/21 08:20 BUN 57 mg/dL (7-17) H 03/27/21 08:20 Creatinine 6.8 mg/dL (0.6-1.2) H 03/27/21 08:20 Estimated GFR 9 ml/min 03/27/21 08:20 BUN/Creatinine Ratio 8 % 03/27/21 08:20 Glucose 131 mg/dL (65-100) H 03/27/21 08:20 POC Glucose 119 mg/dL (70-105) H 03/27/21 04:14 Hemoglobin A1c 6.3 % (4-6) H 03/15/21 05:09 Lactic Acid 2.00 mmol/L (0.7-2.0) 03/14/21 18:47 Calcium 9.3 mg/dL (8.4-10.2) 03/27/21 08:20 Phosphorus 10.80 mg/dL (2.5-4.5) H 03/23/21 04:30 Magnesium 3.50 mg/dL (1.7-2.3) H 03/23/21 04:30 Ferritin 151.6 ng/mL (10.0-200.0) 03/18/21 04:30 Total Bilirubin 0.20 mg/dL (0.1-1.2) 03/17/21 05:23 AST 35 units/L (5-40) 03/17/21 05:23 ALT 24 units/L (7-56) 03/17/21 05:23 Alkaline Phosphatase 78 units/L (35-129) 03/17/21 05:23 Lactate Dehydrogenase 477 units/L (91-180) H 03/18/21 04:30 C-Reactive Protein 9.40 mg/dL (0.00-1.30) H 03/22/21 10:00 Total Protein 6.7 g/dL (6.3-8.2) 03/17/21 05:23 Albumin 3.2 g/dL (3.9-5) L 03/17/21 05:23 Albumin/Globulin Ratio 0.9 % 03/17/21 05:23 Triglycerides 254 mg/dL (2-149) H 03/26/21 05:15 Procalcitonin < 0.05 ng/mL (<0.15) 03/13/21 15:40 HCG, Qual Negative (Negative) 03/13/21 13:26 Arterial Blood Glucose 132 mg/dL (65-95) H 03/27/21 03:20 Arterial Blood Ionized Calcium 4.4 mg/dL (4.6-5.3) L 03/23/21 21:00 Urine Creatinine 40.1 mg/dL (0.1-20.0) H 03/14/21 17:50 Urine Sodium 124 mmol/L 03/14/21 17:50 Random Vancomycin 11.2 ug/mL (0-40.0) 03/20/21 04:23 Coronavirus (PCR) Positive (Negative) A 03/14/21 Unknown Hepatitis A IgM Ab Non-reactive (NonReactive) 03/15/21 05:09 Hep Bs Antigen Nonreactive (Negative) 03/15/21 05:09 Hep B Core IgM Ab Non-reactive (NonReactive) 03/15/21 05:09 Hepatitis C Antibody Non-reactive (NonReactive) 03/15/21 05:09 Blood Type O POSITIVE 03/25/21 13:45 Antibody Screen Negative 03/25/21 13:45 Crossmatch See Detail 03/25/21 13:45 Microbiology: Microbiology 03/23/21 15:34 Peripheral/Venous Blood Culture - Preliminary NO GROWTH AFTER 72 HOURS 03/23/21 15:44 Peripheral/Venous Blood Culture - Preliminary NO GROWTH AFTER 72 HOURS Bazan/IV: Voiding Method Incontinent Active Medications - Current Medications Current Medications: Generic Name Dose Route Start Last Admin Trade Name Freq PRN Reason Stop Dose Admin Acetaminophen 650 mg 03/13/21 19:30 03/27/21 08:07 Acetaminophen 325 Mg Tab PO 650 mg Q4H PRN Administration Pain MILD(1-3)/Fever >100.5/SALAS Albuterol 2.5 mg 03/19/21 00:53 Albuterol 2.5 Mg/3 Ml [facility]u IH Q4HRT PRN Shortness Of Breath Albuterol/Ipratropium 1 ampul 03/19/21 08:00 03/27/21 08:41 Ipratropium/Albuterol Sulfate 3 Ml Ampul.Neb IH 1 ampul Q6HRT INESSA Administration Lipase/Protease/Amylase 1 each 03/15/21 11:42 Lipase 10,500/Protease 25,000/Amylase 43,750 (Units) Dr Cap FEEDTUBE PRN PRN For Clogged Feeding Tube Ascorbic Acid 500 mg 03/14/21 22:00 03/27/21 09:39 Ascorbic Acid 500 Mg Tab PO 500 mg BID INESSA Administration Bisacodyl 10 mg 03/22/21 22:00 03/26/21 22:46 Bisacodyl 10 Mg Rect Supp SC 10 mg QHS INESSA Administration Ciprofloxacin/Dexamethasone 1 drops 03/24/21 18:00 03/27/21 09:37 Ciprofloxacin/Dexameth Otic Susp 7.5ml TP 03/29/21 17:59 1 drops QID INESSA Administration Dextrose 50 ml 03/14/21 11:02 03/15/21 11:40 Dextrose 50% In Water (25gm) 50 Ml Syringe IV 50 ml Q30MIN PRN Administration Hypoglycemia Protocol Famotidine 10 mg 03/17/21 22:00 03/27/21 09:38 Famotidine 10 Mg Tab PO 10 mg BID INESSA Administration Fentanyl 50 mcg 03/15/21 10:43 Fentanyl 100 Mcg/2 Ml Inj IV Q10MIN PRN ANALGESIA Hydralazine HCl 10 mg 03/15/21 10:10 03/15/21 10:32 Hydralazine 20 Mg/1 Ml Inj IV 10 mg Q4HR PRN Administration Hypertension Hydrophilic Ointment 1 applic 03/14/21 17:50 Lip Therapy Vaseline TP Q2HR PRN Dry Lips Propofol 1,000 mg in 100 mls @ 4.123 mls/hr 03/15/21 11:00 03/27/21 08:05 Diprivan 10 Mg/Ml IV 25 mcg/kg/min TITR INESSA 20.616 mls/hr Administration Protocol 5 MCG/KG/MIN Fentanyl Citrate 2,000 mcg in 100 mls @ 6.872 mls/hr 03/15/21 11:00 03/27/21 09:57 Fentanyl Drip Premix IV 2 mcg/kg/hr TITR INESSA 13.744 mls/hr Administration Protocol 1 MCG/KG/HR Sodium Chloride 500 mls @ 1 mls/hr 03/16/21 17:19 Nacl 0.9% 500 Ml IV DIRECT PRN ARTERIAL LINE FLUSH Vasopressin 20 unit/ Sodium 101 mls @ 9.09 mls/hr 03/21/21 16:00 03/24/21 08:10 Chloride IV 0 units/min TITR INESSA 0 mls/hr Titration Protocol 0.03 UNITS/MIN NORepinephrine/NS 8 MG-250 ML 8 mg in 250 mls @ 3.75 mls/hr 03/23/21 11:00 03/24/21 14:31 Norepinephrine/Ns 8 Mg-250 Ml (Double Conc) IV 0 mcg/min TITRATE INESSA 0 mls/hr Titration Protocol 2 MCG/MIN Sodium Chloride 100 mls @ 999 mls/hr 03/27/21 08:12 Nacl 0.9% IV KARLOS PRN Hypotension Cefepime HCl 2 gm in 100 mls @ 200 mls/hr 03/27/21 16:00 Cefepime/Ns 2 Gm/100 Ml IV Q24H [facility] Protocol Insulin Human Lispro 0 unit 03/14/21 12:00 03/27/21 08:50 Insulin Lispro 100 Unit/Ml SUB-Q Not Given Q6HR [facility] Protocol Lorazepam 1 mg 03/13/21 19:40 03/18/21 14:11 Lorazepam 2 Mg/Ml Vial IV 1 mg Q4H PRN Administration Anxiety Multi-Ingred Cream/Lotion/Oil/Oint 1 applic 03/14/21 17:50 Mineral Oil/Petrolatum, White Ophth Oint 3.5 Gm OU Q4HR PRN Dry Eye(s) Ondansetron HCl 4 mg 03/13/21 19:30 03/21/21 12:05 Ondansetron 4 Mg/2 Ml Inj IV 4 mg Q8H PRN Administration Nausea And Vomiting Senna/Docusate Sodium 1 tab 03/14/21 22:00 03/27/21 09:40 Sennosides/Docusate Sodium 8.6/50 Mg Tab FEEDTUBE Not Given BID INESSA Simple Syrup 15 ml 03/15/21 11:42 Simple Syrup 15 Ml FEEDTUBE PRN PRN Hypoglycemia Simple Syrup 30 ml 03/15/21 11:42 Simple Syrup 15 Ml FEEDTUBE PRN PRN Hypoglycemia Sodium Bicarbonate 325 mg 03/15/21 11:42 03/21/21 17:21 Sodium Bicarbonate 325 Mg Tab FEEDTUBE 325 mg PRN PRN Administration For Clogged Feeding Tube Sodium Chloride 10 ml 03/13/21 22:00 03/27/21 09:41 Sodium Chloride 0.9% 10 Ml Flush Syringe IV 10 ml BID INESSA Administration Sodium Chloride 10 ml 03/13/21 19:30 Sodium Chloride 0.9% 10 Ml Flush Syringe IV PRN PRN LINE FLUSH Zinc Sulfate 220 mg 03/14/21 22:00 03/27/21 09:38 Zinc Sulfate 220 Mg Cap PO 220 mg BID INESSA Administration Nutrition/Malnutrition Assess - Dietary Evaluation Nutrition/Malnutrition Findings: Nutrition Notes Start: 03/15/21 11:06 Freq: Status: Active Protocol: Document 03/27/21 10:27 REJI (Rec: 03/27/21 10:33 [facility] [id number]) Nutrition Notes Initial or Follow up Brief Note Subjective/Other Information Spoke with pt's RN via phone at 10:27. Pt tolerating TF at goal rate. Rectal tube remains in place. Percent of energy/protein needs met: 99% energy 73% pro Nutrition Intervention Follow-Up By: 04/02/21 Additional Comments F/U: stable TF, vent status, rectal tube, propofol, wt
[2021-03-26] MEDS: ACETAMINOPHEN 325 MG TAB PO PRN (22:49)
[2021-03-27] MEDS: IPRATROPIUM/ALBUTEROL SULFATE 3 ML AMPUL.NEB IH SCH ×4 (03:19→20:25)
[2021-03-27] MEDS: fentaNYL DRIP Premix 2,000 MCG/100 ML BAG IV SCH ×4 (04:10→22:10)
[2021-03-27] MEDS: ACETAMINOPHEN 325 MG TAB PO PRN (08:07)
[2021-03-27] MEDS ORDERED: SODIUM CHLORIDE 0.9% 100 ML IV PRN ×2 (08:12→08:14)
[2021-03-27 08:29] LABS: Hematocrit 23.5 % (30.3-42.9); Hemoglobin 7.9 gm/dl (10.1-14.3); Mean Corpuscular HGB Conc 33 % (30-34); Mean Corpuscular Volume 83 fl (79-97); Platelet Count 125 K/mm3 (140-440); Red Blood Count 2.82 M/mm3 (3.65-5.03); Red Cell Distribution Width 17.3 % (13.2-15.2)
[2021-03-27 08:49] LABS: Calcium 9.3 mg/dL (8.4-10.2)
[2021-03-27] MEDS: INSULIN LISPRO 100 UNIT/ML SUB-Q SCH ×3 (08:50→17:59)
[2021-03-27] MEDS: CIPROFLOXACIN/DEXAMETH OTIC SUSP 7.5ML TP SCH ×4 (09:37→21:15)
[2021-03-27] MEDS: FAMOTIDINE 10 MG TAB PO SCH ×2 (09:38→21:13)
[2021-03-27] MEDS: ZINC SULFATE 220 MG CAP PO SCH ×2 (09:38→21:13)
[2021-03-27] MEDS: ASCORBIC ACID 500 MG TAB PO SCH ×2 (09:39→21:13)
[2021-03-27] MEDS: SENNOSIDES/DOCUSATE SODIUM 8.6/50 MG TAB FEEDTUBE SCH ×2 (09:40→21:13)
--- NOTE | 2021-03-27 11:11 | Progress Note ---
<ANCELMO GONZALEZ - Last Filed: 03/27/21 17:17> Assessment and Plan Assessment and plan: This is a 31-year-old female with history of asthma, morbid obesity, and Crohn's disease who came in complaining of severe wheezing and shortness of breath for the last 4 days that was not relieved by her home nebs and rescue inhalers. Patient was initially admitted to IMCU on bipap but was subsequently intubated due to severe respiratory distress and was unable to protect her aiway. Patient was found to have acute respiratory failure 2/2 to COVID PNA requiring vent support and SAI and transferred to ICU. Hospital Course to Date: 03/14/21- Patient is s/p intubation from this morning, sedated on propofol and fentanyl RASS -3 to -4. ETT above the clavicles advanced by 2cc. Continue nebs and IV steroids per CCM. COVID swab pending. Hyperkalemia improved, X1 dose of kayaxalate ordered. Low BP and low urine output this am, fluid bolus challenge, 500cc of NS bolus given. Continue to monitor electrolytes and renal function, repeat BMP this afternoon. 03/15: Patient's renal function noted to be significantly worse today, patient was hyperkalemic and this was medically treated. Patient initiated on hemodialysis today. Patient disease was consulted today. 03/16: No acute events reported overnight, patient received hemodialysis yesterday. Patient is currently on propofol and fentanyl. 03/17: Patient received hemodialysis today, patient is slightly acidotic on ABG however [facility] is allowing for permissive hypercapnia, tracheal aspirate with Staph aureus and ID is aware. 03/18: Patient is having high residuals today and Reglan was started, patient will receive HD daily per nephrology, correct her change in FiO2 as tolerated. 03/19: HD per nephrology today, antibiotics changed to cefazolin. Patient did not tolerate tube feedings as she had high residuals this morning and they were turned off. Not restarted yet. Updated family at bedside today 03/20: HD today, ddimer noted to be >1000, Tolerating trickle TF. Stat BLE dopplar US 03/21: Patient is not tolerating TF, CXR shows worsening infiltrates, [facility] made changes to vent, TF on hold and started on IVF. 03/22/21- Patient remains intubated and on sedation. Persistent vomiting, TF held overnight, no documented BM, on reglan BR added, Shaun citarte & supp. HD today. Plan to restart TF at 10ml/hr, will reevaluate in the am. Persistent thrombocytopenia, Hep on hold, HIT panel ordered, PO eliquis initiated. 03/23/21- Patient remains on the vent and sedated on propofol and fentanyl RASS - 2 to -3. Possible SAT today as tolerated. Patient tolerated trickle feeds overnight, plan to advance TF by 10cc Q8 to 12hrs. Continue current BR and continue reglan for now. Slightr worsening in acidosis from this am, d/w [facility] vent setting adjusted, will repeat ABG at 9pm. 03/24/21- Patient is on the vent and sedated, on fentanyl and propfol. Bilateral subconjunctival hemorrhage with periorbital edema noted this am, pupils are round and reactive, will Cipro/Dex [id number]. Worsening of kidney function from today's labs, plan for HD per Nephro. 03/25/21- Patient remains intubated and on sedatin, RASS 0 to -1, no longer on pressors. Sudden drop in H&H this am, bilateral subconjunctival hemorrhage with no sig change, no signs of any active bleeding. Patient appears neurologically intact, following commands, pupils are round and reactive with + gag and cough, moved all extremities. D/w [facility] patient is too unstable for CT at this time. E liquis D/Devaughn, 1unit of PRBC ordered. Will continue to trend CBC. Plan for another section of HD today 03/26/21- Patient remains on the vent and sedated. VENICE reported from overnight. Plan for HD again today. H&H back up and stable, no AC at this time, SCDs for VTE phro. D/w [facility] patient is still too unstable for CT scan, will continue neuro exam and will continue to monitor H&H. 03/27/21- VENICE overnight. remains on the vent and sedated. Red localized rashes noted in patient upper chest and face, will r/o allergic reaction,CBC with auto diff and urine eosinophils ordered. Plan for HD today per Nephro. Assessment and Plan #Neuro: Sedated - Intubated and sedated on propofol and fentanyl RASS -1 - Titrate sedation for RASS goal 0 to -1 - Daily SAT and SBT per CCM - Avoid benzodiazepine's, reduce the possibility of delirium - Prn analgesia for CPOT greater than 3 - Maintenance of sleep-wake cycle - Bilateral wrist restraints in place for safety #Subconjunctival hemorrhage #Periorbital Edema - Acute swelling/edema with subconjunctival hemorrhage noted this am - No report of possible trauma/injury - pupils are round and reactive, no drainage noted - Patient is sedated on fentanyl and propofol RASS -1 to -2, following commands - Possibly due to elevated venous pressure vs coughing - Cipro/Dex was initiated [id number] - Eliquis D/C - s/p 1unit of PRBCs ordered - Will continue to monitor #CV:Tachycardia #HTN - ST on the monitor - Back on low dose pressors - Continue blood pressure monitor per protocol - Maintain MAP above 65 - Eliquis on hold - C/f for HIT, HIT panel pending - SCDs for VTE proh #Acute Respiratory Failure #COVID PNA #RUL PNA #Asthma Exacerbation #Bronchospasm- resolved - 03/13 CXR- possible minimal patchy RUL pneumonia - 03/14 CXR- increasing patchy parenchymal opacities bilaterally - C/f for aspiration while patient was on Bipap - Intubated on 03/14 for airway protection - High Peak pressure post intubation--> bronchospasm - COVID swab positive - Vent setting: PRVC- 60%,12,24,500 - AM ABG noted - Vent adjusted by CCM - CCM consulted, appreciate recommendations - Continue IV Steroids and Nebs per CCM - VAP bundle addressed - Aspiration precaution HOB above 30 - Daily SBT and SAT trials as tolerated - Daily ABG and CXR - Continue SPO2 monitoring for SPO2 goal above 92% #GI: Projectile Vomitting- resolved - Patient on enteral nutrition - TF now at goal - BM this am - 03/22 BR adjusted, X1 dose of mag citrate and Supp - Continue BR: colace and senokot - Continue Pepcid and reglan - PRN entiemetic for N/V #:Acute Kidney Injury most likely ATN #Hyperkalemia- resolved - Initial cr. was 0.8-- up to 10.8 this am - HD was initiated on 03/15 - Patient is oliguric - Last HD on 03/22 - Plan for HD today - Continue HD per Nephro - Strict intake and output - Avoid nephrotoxic medications; Renally dose medications - Monitor and replace electrolytes as needed - Nephro on consult #ID:COVID Pneumonia #RUL PNA #Possible aspiration Pneumonia #Leukocytosis - WBCs downtrending today - Febrile overnight, TMAX 101.4 - COVID swab positive - 03/13 BC x2 no growth to date - 03/14 tracheal aspirate with Staph aureus (ID aware) - Patient received X1 dose of redemsevir, was D/C due to worsen renal function - Received X1 dose actemra - Continue IV Abx per ID - Trend COVID-19 inflammatory markers - Isolation/droplet precautions - On Vitamin C/vitamin D/zinc - Daily CBC monitor - ID on consult #Endo: Hyperglycemia - Hemoglobin A1c 6.3 - Continue SSI Q6hrs - While critically ill target blood glucose of 140-180 - Avoid hypoglycemia The high probability of a clinically significant, sudden or life threatening deterioration of the [multiple] system(s) required my full and direct attention, intervention and personal management. The aggregate critical care time was [60] minutes. This time is in addition to time spent performing reported procedures but includes the following: [x] Data Review and interpretation [x] Patient assessment and monitoring of vital signs [x] Documentation [x] Medication orders and management Disposition Plan: ICU Total Time Spent with Patient (Minutes): 60 History Interval history: Patient is seen and examined at the bedside. Patient remains on the vent and sedated. RASS -1, pupils are round and reactive, following simple commands. Per RN red rashes noted on patient face, neck and upper chest. VENICE overnight Hospitalist Physical - Constitutional Vitals: Temp Pulse Resp BP Pulse Ox 102.4 F H 124 H 16 123/42 98 03/27/21 07:18 03/27/21 10:30 03/27/21 10:30 03/27/21 10:30 03/27/21 10:30 General appearance: Present: no acute distress, well-nourished, obese, other (Intubated and sedated) - EENT Eyes: Present: PERRL ENT: hearing intact - Respiratory Respiratory: bilateral: rhonchi, wheezing - Cardiovascular Rhythm: regular Heart Sounds: Present: S1 & S2 - Extremities Extremities: no ischemia, pulses intact, pulses symmetrical Extremity abnormal: edema - Peripheral Assessment Generalized Edema Type: Non-pitting Edema Degree: 2+ Capillary Refill: < 3 seconds Skin Temperature: Warm Peripheral Pulses: within normal limits - Abdominal General gastrointestinal: soft, non-tender, normal bowel sounds - Integumentary Integumentary: Present: warm, dry - Psychiatric Psychiatric: cooperative (Following commands), other (Intubated and sedated) - Neurologic Neurologic: other (Intubated and sedated) - Allied Health Allied health notes reviewed: nursing Results - Labs CBC & Chem 7: 03/27/21 08:20 03/27/21 08:20 Labs: Laboratory Last Values WBC 13.2 K/mm3 (4.5-11.0) H 03/27/21 08:20 RBC 2.82 M/mm3 (3.65-5.03) L 03/27/21 08:20 Hgb 7.9 gm/dl (10.1-14.3) L 03/27/21 08:20 Hct 23.5 % (30.3-42.9) L 03/27/21 08:20 MCV 83 fl (79-97) 03/27/21 08:20 MCH 28 pg (28-32) 03/27/21 08:20 MCHC 33 % (30-34) 03/27/21 08:20 RDW 17.3 % (13.2-15.2) H 03/27/21 08:20 Plt Count 125 K/mm3 (140-440) L 03/27/21 08:20 Lymph % (Auto) 7.8 % (13.4-35.0) L 03/14/21 06:21 Jack % (Auto) 6.7 % (0.0-7.3) 03/14/21 06:21 Eos % (Auto) 0.0 % (0.0-4.3) 03/14/21 06:21 Baso % (Auto) 0.1 % (0.0-1.8) 03/14/21 06:21 Lymph # (Auto) 1.6 K/mm3 (1.2-5.4) 03/14/21 06:21 Jack # (Auto) 1.3 K/mm3 (0.0-0.8) H 03/14/21 06:21 Eos # (Auto) 0.0 K/mm3 (0.0-0.4) 03/14/21 06:21 Baso # (Auto) 0.0 K/mm3 (0.0-0.1) 03/14/21 06:21 Seg Neutrophils % 85.4 % (40.0-70.0) H 03/14/21 06:21 Seg Neutrophils # 17.1 K/mm3 (1.8-7.7) H 03/14/21 06:21 PT 15.8 Sec. (12.2-14.9) H 03/22/21 13:40 INR 1.14 (0.87-1.13) H 03/22/21 13:40 APTT 26.8 Sec. (24.2-36.6) 03/22/21 13:40 D-Dimer > 44871 ng/mlDDU (0-234) H 03/22/21 13:40 ABG pH 7.361 (7.320-7.450) 03/27/21 03:20 POC ABG pCO2 50.0 mmHg (32.0-48.0) H 03/27/21 03:20 ABG pCO2 42.1 mm Hg 03/26/21 09:50 POC ABG pO2 58.3 mmHg (83-108) L 03/27/21 03:20 ABG pO2 79.9 mm Hg (80.0-90.0) L 03/26/21 09:50 POC ABG HCO3 27.7 03/27/21 03:20 ABG HCO3 23.8 mmol/L (20.0-26.0) 03/26/21 09:50 ABG O2 Saturation 88.9 (0-100) 03/27/21 03:20 ABG O2 Content 9.6 (0.0-44) 03/26/21 09:50 POC ABG Base Excess 1.6 03/27/21 03:20 ABG Base Excess -1.4 mmol/L (-2.0-3.0) 03/26/21 09:50 ABG Hemoglobin 11.3 (12.0-17.5) L 03/27/21 03:20 ABG Oxyhemoglobin 88.5 (94-98) L 03/27/21 03:20 ABG Carboxyhemoglobin 1.6 % (0.0-5.0) 03/26/21 09:50 ABG Methemoglobin 0.3 (0.0-1.5) 03/27/21 03:20 ABG Sodium 136.0 mmol/L (136.0-145.0) 03/27/21 03:20 ABG Potassium 3.5 mmol/L (3.40-4.50) 03/27/21 03:20 ABG Chloride 104.0 mmol/L (98-107) 03/27/21 03:20 ABG Glucose 132 mg/dL (65-95) H 03/27/21 03:20 Oxyhemoglobin 94.9 % (95.0-99.0) L 03/26/21 09:50 Carboxyhemoglobin 0.2 (0.5-1.5) L 03/27/21 03:20 FiO2 60 % 03/26/21 09:50 FiO2 % 60.0 03/27/21 03:20 Sodium 141 mmol/L (137-145) 03/27/21 08:20 Potassium 3.7 mmol/L (3.6-5.0) 03/27/21 08:20 Chloride 102.2 mmol/L (98-107) 03/27/21 08:20 Carbon Dioxide 24 mmol/L (22-30) 03/27/21 08:20 Anion Gap 19 mmol/L 03/27/21 08:20 BUN 57 mg/dL (7-17) H 03/27/21 08:20 Creatinine 6.8 mg/dL (0.6-1.2) H 03/27/21 08:20 Estimated GFR 9 ml/min 03/27/21 08:20 BUN/Creatinine Ratio 8 % 03/27/21 08:20 Glucose 131 mg/dL (65-100) H 03/27/21 08:20 POC Glucose 119 mg/dL (70-105) H 03/27/21 04:14 Hemoglobin A1c 6.3 % (4-6) H 03/15/21 05:09 Lactic Acid 2.00 mmol/L (0.7-2.0) 03/14/21 18:47 Calcium 9.3 mg/dL (8.4-10.2) 03/27/21 08:20 Phosphorus 10.80 mg/dL (2.5-4.5) H 03/23/21 04:30 Magnesium 3.50 mg/dL (1.7-2.3) H 03/23/21 04:30 Ferritin 151.6 ng/mL (10.0-200.0) 03/18/21 04:30 Total Bilirubin 0.20 mg/dL (0.1-1.2) 03/17/21 05:23 AST 35 units/L (5-40) 03/17/21 05:23 ALT 24 units/L (7-56) 03/17/21 05:23 Alkaline Phosphatase 78 units/L (35-129) 03/17/21 05:23 Lactate Dehydrogenase 477 units/L (91-180) H 03/18/21 04:30 C-Reactive Protein 9.40 mg/dL (0.00-1.30) H 03/22/21 10:00 Total Protein 6.7 g/dL (6.3-8.2) 03/17/21 05:23 Albumin 3.2 g/dL (3.9-5) L 03/17/21 05:23 Albumin/Globulin Ratio 0.9 % 03/17/21 05:23 Triglycerides 254 mg/dL (2-149) H 03/26/21 05:15 Procalcitonin < 0.05 ng/mL (<0.15) 03/13/21 15:40 HCG, Qual Negative (Negative) 03/13/21 13:26 Arterial Blood Glucose 132 mg/dL (65-95) H 03/27/21 03:20 Arterial Blood Ionized Calcium 4.4 mg/dL (4.6-5.3) L 03/23/21 21:00 Urine Creatinine 40.1 mg/dL (0.1-20.0) H 03/14/21 17:50 Urine Sodium 124 mmol/L 03/14/21 17:50 Random Vancomycin 11.2 ug/mL (0-40.0) 03/20/21 04:23 Coronavirus (PCR) Positive (Negative) A 03/14/21 Unknown Hepatitis A IgM Ab Non-reactive (NonReactive) 03/15/21 05:09 Hep Bs Antigen Nonreactive (Negative) 03/15/21 05:09 Hep B Core IgM Ab Non-reactive (NonReactive) 03/15/21 05:09 Hepatitis C Antibody Non-reactive (NonReactive) 03/15/21 05:09 Blood Type O POSITIVE 03/25/21 13:45 Antibody Screen Negative 03/25/21 13:45 Crossmatch See Detail 03/25/21 13:45 Microbiology: Microbiology 03/23/21 15:34 Peripheral/Venous Blood Culture - Preliminary NO GROWTH AFTER 72 HOURS 03/23/21 15:44 Peripheral/Venous Blood Culture - Preliminary NO GROWTH AFTER 72 HOURS Bazan/IV: Voiding Method Incontinent Active Medications - Current Medications Current Medications: Generic Name Dose Route Start Last Admin Trade Name Freq PRN Reason Stop Dose Admin Acetaminophen 650 mg 03/13/21 19:30 03/27/21 08:07 Acetaminophen 325 Mg Tab PO 650 mg Q4H PRN Administration Pain MILD(1-3)/Fever >100.5/SALAS Albuterol 2.5 mg 03/19/21 00:53 Albuterol 2.5 Mg/3 Ml Nebu IH Q4HRT PRN Shortness Of Breath Albuterol/Ipratropium 1 ampul 03/19/21 08:00 03/27/21 08:41 Ipratropium/Albuterol Sulfate 3 Ml Ampul.Neb IH 1 ampul Q6HRT INESSA Administration Lipase/Protease/Amylase 1 each 03/15/21 11:42 Lipase 10,500/Protease 25,000/Amylase 43,750 (Units) Dr White FEEDTUBE PRN PRN For Clogged Feeding Tube Ascorbic Acid 500 mg 03/14/21 22:00 03/27/21 09:39 Ascorbic Acid 500 Mg Tab PO 500 mg BID INESSA Administration Bisacodyl 10 mg 03/22/21 22:00 03/26/21 22:46 Bisacodyl 10 Mg Rect Supp WI 10 mg QHS INESSA Administration Ciprofloxacin/Dexamethasone 1 drops 03/24/21 18:00 03/27/21 09:37 Ciprofloxacin/Dexameth Otic Susp 7.5ml TP 03/29/21 17:59 1 drops QID INESSA Administration Dextrose 50 ml 03/14/21 11:02 03/15/21 11:40 Dextrose 50% In Water (25gm) 50 Ml Syringe IV 50 ml Q30MIN PRN Administration Hypoglycemia Protocol Famotidine 10 mg 03/17/21 22:00 03/27/21 09:38 Famotidine 10 Mg Tab PO 10 mg BID INESSA Administration Fentanyl 50 mcg 03/15/21 10:43 Fentanyl 100 Mcg/2 Ml Inj IV Q10MIN PRN ANALGESIA Hydralazine HCl 10 mg 03/15/21 10:10 03/15/21 10:32 Hydralazine 20 Mg/1 Ml Inj IV 10 mg Q4HR PRN Administration Hypertension Hydrophilic Ointment 1 applic 03/14/21 17:50 Lip Therapy Vaseline TP Q2HR PRN Dry Lips Propofol 1,000 mg in 100 mls @ 4.123 mls/hr 03/15/21 11:00 03/27/21 08:05 Diprivan 10 Mg/Ml IV 25 mcg/kg/min TITR INESSA 20.616 mls/hr Administration Protocol 5 MCG/KG/MIN Fentanyl Citrate 2,000 mcg in 100 mls @ 6.872 mls/hr 03/15/21 11:00 03/27/21 09:57 Fentanyl Drip Premix IV 2 mcg/kg/hr TITR INESSA 13.744 mls/hr Administration Protocol 1 MCG/KG/HR Sodium Chloride 500 mls @ 1 mls/hr 03/16/21 17:19 Nacl 0.9% 500 Ml IV DIRECT PRN ARTERIAL LINE FLUSH Vasopressin 20 unit/ Sodium 101 mls @ 9.09 mls/hr 03/21/21 16:00 03/24/21 08: 10 Chloride IV 0 units/min TITR INESSA 0 mls/hr Titration Protocol 0.03 UNITS/MIN NORepinephrine/NS 8 MG-250 ML 8 mg in 250 mls @ 3.75 mls/hr 03/23/21 11:00 03/24/21 14:31 Norepinephrine/Ns 8 Mg-250 Ml (Double Conc) IV 0 mcg/min TITRATE INESSA 0 mls/hr Titration Protocol 2 MCG/MIN Sodium Chloride 100 mls @ 999 mls/hr 03/27/21 08:12 Nacl 0.9% IV KARLOS PRN Hypotension Cefepime HCl 2 gm in 100 mls @ 200 mls/hr 03/27/21 16:00 Cefepime/Ns 2 Gm/100 Ml IV Q24H [facility] Protocol Insulin Human Lispro 0 unit 03/14/21 12:00 03/27/21 08:50 Insulin Lispro 100 Unit/Ml SUB-Q Not Given Q6HR [facility] Protocol Lorazepam 1 mg 03/13/21 19:40 03/18/21 14:11 Lorazepam 2 Mg/Ml Vial IV 1 mg Q4H PRN Administration Anxiety Multi-Ingred Cream/Lotion/Oil/Oint 1 applic 03/14/21 17:50 Mineral Oil/Petrolatum, White Ophth Oint 3.5 Gm OU Q4HR PRN Dry Eye(s) Ondansetron HCl 4 mg 03/13/21 19:30 03/21/21 12:05 Ondansetron 4 Mg/2 Ml Inj IV 4 mg Q8H PRN Administration Nausea And Vomiting Senna/Docusate Sodium 1 tab 03/14/21 22:00 03/27/21 09:40 Sennosides/Docusate Sodium 8.6/50 Mg Tab FEEDTUBE Not Given BID INESSA Simple Syrup 15 ml 03/15/21 11:42 Simple Syrup 15 Ml FEEDTUBE PRN PRN Hypoglycemia Simple Syrup 30 ml 03/15/21 11:42 Simple Syrup 15 Ml FEEDTUBE PRN PRN Hypoglycemia Sodium Bicarbonate 325 mg 03/15/21 11:42 03/21/21 17:21 Sodium Bicarbonate 325 Mg Tab FEEDTUBE 325 mg PRN PRN Administration For Clogged Feeding Tube Sodium Chloride 10 ml 03/13/21 22:00 03/27/21 09:41 Sodium Chloride 0.9% 10 Ml Flush Syringe IV 10 ml BID INESSA Administration Sodium Chloride 10 ml 03/13/21 19:30 Sodium Chloride 0.9% 10 Ml Flush Syringe IV PRN PRN LINE FLUSH Zinc Sulfate 220 mg 03/14/21 22:00 03/27/21 09:38 Zinc Sulfate 220 Mg Cap PO 220 mg BID INESSA Administration Nutrition/Malnutrition Assess - Dietary Evaluation Nutrition/Malnutrition Findings: Nutrition Notes Start: 03/15/21 11:06 Freq: Status: Active Protocol: Document 03/27/21 10:27 REJI (Rec: 03/27/21 10:33 [facility] [id number]) Nutrition Notes Initial or Follow up Brief Note Subjective/Other Information Spoke with pt's RN via phone at 10:27. Pt tolerating TF at goal rate. Rectal tube remains in place. Percent of energy/protein needs met: 99% energy 73% pro Nutrition Intervention Follow-Up By: 04/02/21 Additional Comments F/U: stable TF, vent status, rectal tube, propofol, wt <WESLEY LANCASTER - Last Filed: 03/29/21 07:46> Assessment and Plan Assessment and plan: I saw and evaluated the patient. I agree with the findings and the plan of care as documented in the Nurse Practitioner's~note, with the following corrections and additions. Hospitalist Physical - Constitutional Vitals: Temp Pulse Resp BP Pulse Ox 103.5 F H 128 H 36 H 141/88 98 03/29/21 03:25 03/29/21 06:30 03/29/21 06:30 03/29/21 06:30 03/29/21 06:30 Results - Labs CBC & Chem 7: 03/29/21 04:45 03/29/21 04:45 Labs: Laboratory Last Values WBC 17.5 K/mm3 (4.5-11.0) H 03/29/21 04:45 RBC 3.15 M/mm3 (3.65-5.03) L 03/29/21 04:45 Hgb 8.8 gm/dl (10.1-14.3) L 03/29/21 04:45 Hct 27.2 % (30.3-42.9) L 03/29/21 04:45 MCV 87 fl (79-97) 03/29/21 04:45 MCH 28 pg (28-32) 03/29/21 04:45 MCHC 32 % (30-34) 03/29/21 04:45 RDW 17.9 % (13.2-15.2) H 03/29/21 04:45 Plt Count 132 K/mm3 (140-440) L 03/29/21 04:45 Lymph % (Auto) 10.7 % (13.4-35.0) L 03/28/21 09:37 Jack % (Auto) 5.2 % (0.0-7.3) 03/28/21 09:37 Eos % (Auto) 3.9 % (0.0-4.3) 03/28/21 09:37 Baso % (Auto) 0.2 % (0.0-1.8) 03/28/21 09:37 Lymph # (Auto) 1.7 K/mm3 (1.2-5.4) 03/28/21 09:37 Jack # (Auto) 0.9 K/mm3 (0.0-0.8) H 03/28/21 09:37 Eos # (Auto) 0.6 K/mm3 (0.0-0.4) H 03/28/21 09:37 Baso # (Auto) 0.0 K/mm3 (0.0-0.1) 03/28/21 09:37 Seg Neutrophils % 80.0 % (40.0-70.0) H 03/28/21 09:37 Seg Neutrophils # 13.0 K/mm3 (1.8-7.7) H 03/28/21 09:37 PT 15.8 Sec. (12.2-14.9) H 03/22/21 13:40 INR 1.14 (0.87-1.13) H 03/22/21 13:40 APTT 26.8 Sec. (24.2-36.6) 03/22/21 13:40 D-Dimer > 72199 ng/mlDDU (0-234) H 03/22/21 13:40 ABG pH 7.336 (7.320-7.450) 03/28/21 21:08 POC ABG pCO2 41.5 mmHg (32.0-48.0) 03/28/21 21:08 ABG pCO2 48.9 mm Hg 03/28/21 04:45 POC ABG pO2 80.5 mmHg (83-108) L 03/28/21 21:08 ABG pO2 57.6 mm Hg (80.0-90.0) L 03/28/21 04:45 POC ABG HCO3 21.7 03/28/21 21:08 ABG HCO3 27.1 mmol/L (20.0-26.0) H 03/28/21 04:45 ABG O2 Saturation 94.9 (0-100) 03/28/21 21:08 ABG O2 Content 15.4 (0.0-44) 03/28/21 04:45 POC ABG Base Excess -3.9 03/28/21 21:08 ABG Base Excess 1.1 mmol/L (-2.0-3.0) 03/28/21 04:45 ABG Hemoglobin 9.5 (12.0-17.5) L 03/28/21 21:08 ABG Oxyhemoglobin 94.3 (94-98) 03/28/21 21:08 ABG Carboxyhemoglobin 1.7 % (0.0-5.0) 03/28/21 04:45 ABG Methemoglobin 0.3 (0.0-1.5) 03/28/21 21:08 ABG Sodium 133.3 mmol/L (136.0-145.0) L 03/28/21 21:08 ABG Potassium 3.7 mmol/L (3.40-4.50) 03/28/21 21:08 ABG Chloride 102.0 mmol/L (98-107) 03/28/21 21:08 ABG Glucose 134 mg/dL (65-95) H 03/28/21 21:08 Oxyhemoglobin 86.6 % (95.0-99.0) L 03/28/21 04:45 Carboxyhemoglobin 0.3 (0.5-1.5) L 03/28/21 21:08 FiO2 50 % 03/28/21 04:45 FiO2 % 50.0 03/28/21 21:08 Sodium 137 mmol/L (137-145) 03/29/21 04:45 Potassium 4.0 mmol/L (3.6-5.0) 03/29/21 04:45 Chloride 97.7 mmol/L (98-107) L 03/29/21 04:45 Carbon Dioxide 21 mmol/L (22-30) L 03/29/21 04:45 Anion Gap 22 mmol/L 03/29/21 04:45 BUN 78 mg/dL (7-17) H 03/29/21 04:45 Creatinine 9.5 mg/dL (0.6-1.2) H 03/29/21 04:45 Estimated GFR 6 ml/min 03/29/21 04:45 BUN/Creatinine Ratio 8 % 03/29/21 04:45 Glucose 132 mg/dL (65-100) H 03/29/21 04:45 POC Glucose 96 mg/dL (70-105) 03/29/21 05:07 Hemoglobin A1c 6.3 % (4-6) H 03/15/21 05:09 Lactic Acid 2.00 mmol/L (0.7-2.0) 03/14/21 18:47 Calcium 8.5 mg/dL (8.4-10.2) 03/29/21 04:45 Phosphorus 10.80 mg/dL (2.5-4.5) H 03/23/21 04:30 Magnesium 3.50 mg/dL (1.7-2.3) H 03/23/21 04:30 Ferritin 151.6 ng/mL (10.0-200.0) 03/18/21 04:30 Total Bilirubin 0.30 mg/dL (0.1-1.2) 03/29/21 04:45 AST 34 units/L (5-40) 03/29/21 04:45 ALT 8 units/L (7-56) 03/29/21 04:45 Alkaline Phosphatase 83 units/L (35-129) 03/29/21 04:45 Lactate Dehydrogenase 477 units/L (91-180) H 03/18/21 04:30 C-Reactive Protein 9.40 mg/dL (0.00-1.30) H 03/22/21 10:00 Total Protein 6.4 g/dL (6.3-8.2) 03/29/21 04:45 Albumin 2.2 g/dL (3.9-5) L 03/29/21 04:45 Albumin/Globulin Ratio 0.5 % 03/29/21 04:45 Triglycerides 385 mg/dL (2-149) H 03/29/21 04:45 Procalcitonin < 0.05 ng/mL (<0.15) 03/13/21 15:40 HCG, Qual Negative (Negative) 03/13/21 13:26 Arterial Blood Glucose 134 mg/dL (65-95) H 03/28/21 21:08 Arterial Blood Ionized Calcium 4.4 mg/dL (4.6-5.3) L 03/23/21 21:00 Urine Creatinine 40.1 mg/dL (0.1-20.0) H 03/14/21 17:50 Urine Sodium 124 mmol/L 03/14/21 17:50 Random Vancomycin 11.2 ug/mL (0-40.0) 03/20/21 04:23 Coronavirus (PCR) Positive (Negative) A 03/14/21 Unknown Hepatitis A IgM Ab Non-reactive (NonReactive) 03/15/21 05:09 Hep Bs Antigen Nonreactive (Negative) 03/15/21 05:09 Hep B Core IgM Ab Non-reactive (NonReactive) 03/15/21 05:09 Hepatitis C Antibody Non-reactive (NonReactive) 03/15/21 05:09 Blood Type O POSITIVE 03/25/21 13:45 Antibody Screen Negative 03/25/21 13:45 Crossmatch See Detail 03/25/21 13:45 Microbiology: Microbiology 03/23/21 15:34 Peripheral/Venous Blood Culture - Final NO GROWTH AFTER 5 DAYS 03/23/21 15:44 Peripheral/Venous Blood Culture - Final NO GROWTH AFTER 5 DAYS Bazan/IV: Voiding Method Incontinent Active Medications - Current Medications Current Medications: Generic Name Dose Route Start Last Admin Trade Name Freq PRN Reason Stop Dose Admin Acetaminophen 650 mg 03/13/21 19:30 03/28/21 08:17 Acetaminophen 325 Mg Tab PO 650 mg Q4H PRN Administration Pain MILD(1-3)/Fever >100.5/SALAS Albuterol 2.5 mg 03/19/21 00:53 Albuterol 2.5 Mg/3 Ml Nebu IH Q4HRT PRN Shortness Of Breath Albuterol/Ipratropium 1 ampul 03/19/21 08:00 03/29/21 04:29 Ipratropium/Albuterol Sulfate 3 Ml Ampul.Neb IH Not Given Q6HRT INESSA Lipase/Protease/Amylase 1 each 03/15/21 11:42 Lipase 10,500/Protease 25,000/Amylase 43,750 (Units) Dr White FEEDTUBE PRN PRN For Clogged Feeding Tube Ascorbic Acid 500 mg 03/14/21 22:00 03/28/21 21:52 Ascorbic Acid 500 Mg Tab PO 500 mg BID INESSA Administration Ciprofloxacin/Dexamethasone 1 drops 03/24/21 18:00 03/28/21 21:52 Ciprofloxacin/Dexameth Otic Susp 7.5ml TP 03/29/21 17:59 1 drops QID INESSA Administration Dextrose 50 ml 03/14/21 11:02 03/15/21 11:40 Dextrose 50% In Water (25gm) 50 Ml Syringe IV 50 ml Q30MIN PRN Administration Hypoglycemia Protocol Diphenhydramine HCl 25 mg 03/28/21 18:00 03/29/21 05:09 Diphenhydramine 50 Mg/Ml Vial IV 03/31/21 17:59 25 mg Q6H INESSA Administration Famotidine 10 mg 03/17/21 22:00 03/28/21 21:52 Famotidine 10 Mg Tab PO 10 mg BID INESSA Administration Fentanyl 50 mcg 03/15/21 10:43 03/28/21 09:25 Fentanyl 100 Mcg/2 Ml Inj IV 50 mcg Q10MIN PRN Administration ANALGESIA Hydralazine HCl 10 mg 03/15/21 10:10 03/15/21 10:32 Hydralazine 20 Mg/1 Ml Inj IV 10 mg Q4HR PRN Administration Hypertension Hydrophilic Ointment 1 applic 03/14/21 17:50 Lip Therapy Vaseline TP Q2HR PRN Dry Lips Propofol 1,000 mg in 100 mls @ 4.123 mls/hr 03/15/21 11:00 03/29/21 02:51 Diprivan 10 Mg/Ml IV 25 mcg/kg/min TITR INESSA 20.616 mls/hr Administration Protocol 5 MCG/KG/MIN Fentanyl Citrate 2,000 mcg in 100 mls @ 6.872 mls/hr 03/15/21 11:00 03/29/21 04:01 Fentanyl Drip Premix IV 3 mcg/kg/hr TITR INESSA 20.616 mls/hr Administration Protocol 1 MCG/KG/HR Sodium Chloride 500 mls @ 1 mls/hr 03/16/21 17:19 Nacl 0.9% 500 Ml IV DIRECT PRN ARTERIAL LINE FLUSH Vasopressin 20 unit/ Sodium 101 mls @ 9.09 mls/hr 03/21/21 16:00 03/24/21 08:10 Chloride IV 0 units/min TITR INESSA 0 mls/hr Titration Protocol 0.03 UNITS/MIN NORepinephrine/NS 8 MG-250 ML 8 mg in 250 mls @ 3.75 mls/hr 03/23/21 11:00 03/29/21 04:04 Norepinephrine/Ns 8 Mg-250 Ml (Double Conc) IV 2 mcg/min TITRATE INESSA 3.75 mls/hr Titration Protocol 2 MCG/MIN Sodium Chloride 100 mls @ 999 mls/hr 03/27/21 08:12 Nacl 0.9% IV KARLOS PRN Hypotension Cefepime HCl 2 gm in 100 mls @ 200 mls/hr 03/27/21 16:00 03/28/21 15:19 Cefepime/Ns 2 Gm/100 Ml IV 200 mls/hr Q24H INESSA Administration Protocol Insulin Human Lispro 0 unit 03/14/21 12:00 03/29/21 05:09 Insulin Lispro 100 Unit/Ml SUB-Q Not Given Q6HR INESSA Protocol Lorazepam 1 mg 03/13/21 19:40 03/18/21 14:11 Lorazepam 2 Mg/Ml Vial IV 1 mg Q4H PRN Administration Anxiety Multi-Ingred Cream/Lotion/Oil/Oint 1 applic 03/14/21 17:50 Mineral Oil/Petrolatum, White Ophth Oint 3.5 Gm OU Q4HR PRN Dry Eye(s) Ondansetron HCl 4 mg 03/13/21 19:30 03/21/21 12:05 Ondansetron 4 Mg/2 Ml Inj IV 4 mg Q8H PRN Administration Nausea And Vomiting Senna/Docusate Sodium 1 tab 03/14/21 22:00 03/28/21 21:52 Sennosides/Docusate Sodium 8.6/50 Mg Tab FEEDTUBE 1 tab BID INESSA Administration Simple Syrup 15 ml 03/15/21 11:42 Simple Syrup 15 Ml FEEDTUBE PRN PRN Hypoglycemia Simple Syrup 30 ml 03/15/21 11:42 Simple Syrup 15 Ml FEEDTUBE PRN PRN Hypoglycemia Sodium Bicarbonate 325 mg 03/15/21 11:42 03/21/21 17:21 Sodium Bicarbonate 325 Mg Tab FEEDTUBE 325 mg PRN PRN Administration For Clogged Feeding Tube Sodium Chloride 10 ml 03/13/21 22:00 03/28/21 21:52 Sodium Chloride 0.9% 10 Ml Flush Syringe IV 10 ml BID INESSA Administration Sodium Chloride 10 ml 03/13/21 19:30 Sodium Chloride 0.9% 10 Ml Flush Syringe IV PRN PRN LINE FLUSH Zinc Sulfate 220 mg 03/14/21 22:00 03/28/21 21:52 Zinc Sulfate 220 Mg Cap PO 220 mg BID INESSA Administration Nutrition/Malnutrition Assess - Dietary Evaluation Nutrition/Malnutrition Findings: Nutrition Notes Start: 03/15/21 11:06 Freq: Status: Active Protocol: Document 03/27/21 10:27 REJI (Rec: 03/27/21 10:33 REJI [email or web address]) Nutrition Notes Initial or Follow up Brief Note Subjective/Other Information Spoke with pt's RN via phone at 10:27. Pt tolerating TF at goal rate. Rectal tube remains in place. Percent of energy/protein needs met: 99% energy 73% pro Nutrition Intervention Follow-Up By: 04/02/21 Additional Comments F/U: stable TF, vent status, rectal tube, propofol, wt
--- NOTE | 2021-03-27 13:32 | Progress Note ---
Assessment and Plan Acute hypoxemic respiratory failure Acute asthma exacerbation Morbid obesity Crohn's disease Metabolic acidosis Acute kidney injury Coronavirus infection Pneumonia (CAP) Oropharyngeal dysphagia Obesity, if not mentioned above - reduced FiO2 to 50% - repeat ABG at 9 pm - HD ongoing (no UF today) - continue care as below otherwise; - follow HIT assay - nephrology input appreciated; HD/UF for toxin and volume clearance - HD/UF sessions per nephrology prescription - vasopressors for target MAP > 65 mmHg - continue Daily SAT and SBT assessment as tolerated - continue to wean supplemental oxygen for target O2 sat's > 90% acutely - VAP bundle addressed - continue lung protective strategies - continue bronchodilators with pulmonary hygiene per RT - wean per pulmonary driven protocols otherwise - continue accuchecks with glycemic control per SSI (While critically ill target blood glucose of 140-180 mg/dL; avoid hypoglycemia) - sedation prn for target RASS 0 to -1 - avoid nephrotoxins, renally dose all medications - continue to avoid benzodiazepine's, reduce the possibility of delirium - AB's per ID rec's - prn analgesia per CPOT score - Maintenance of sleep-wake cycle, avoid delirium - continue enteral nutritional support at goal rate as tolerated - G.I. & VTE prophylaxis - PT/OT/ROM exercises - continue mobility protocols for pressure ulcer prophylaxis - Monitor hemodynamics closely - continue other care per attending / other consultants - discharge planning ongoing concurrently COVID SPECIFIC INTERVENTIONS - Actemra ordered if available - Remdesivir as per ID/Pulmonary developed protocols (not a candidate) - continue systemic steroids for severe COVID-19 infection empirically - follow repeat COVID tests results - zinc and vitamin C supplementation - Monitor inflammatory markers per facility protocol - ferritin, Ddimer, CRP - therapeutic anticoagulation per system Protocol based on d-dimer and clinical considerations (VTE prophylaxis) - Continue contact and airborne isolation .... Re-evaluate in am & prn CONDITION: CRITICAL PROGNOSIS: GUARDED CODE STATUS: FULL CODE The high probability of a clinically significant, sudden or life-threatening deterioration of the [respiratory, cardiovascular, renal & neurologic] system(s) required my full and direct attention, intervention and personal management. The aggregate critical care time was [33] minutes without overlap. Time includes spent on; [x] Data Review and interpretation [x] Patient assessment and monitoring of vital signs [x] Documentation [x] Medication orders and management Subjective Date of service: 03/27/21 Principal diagnosis: Ac hypoxemic resp failure; AE-Asthma; SAI; Crohn's; COVID- 19; Pneumonia Interval history: Patient is seen today for: Acute hypoxemic respiratory failure; AE-Asthma; SAI; Crohn's disease; COVID-19 infection; Pneumonia (CAP) Seen and examined at bedside; 24hour events reviewed; nursing and respiratory care staff consulted; no adverse overnight events reported to me; resting in bed; oxygenation continues to improve; she denies pain; non-tender erythematous rash noted to upper chest (? heat rash); no emesis or overt aspiration Objective Vital Signs - 12hr 03/27/21 03/27/21 03/27/21 02:00 02:30 03:00 Temperature Pulse Rate 103 H 109 H 114 H Pulse Rate [ Anterior Bilateral Throughout] Pulse Rate [ From Monitor] Respiratory 26 H 27 H 18 Rate Respiratory Rate [Anterior Bilateral Throughout] Blood Pressure 112/48 114/38 110/48 O2 Sat by Pulse 100 100 100 Oximetry O2 Sat by Pulse Oximetry [ Anterior Bilateral Throughout] 03/27/21 03/27/21 03/27/21 03:30 04:00 04:25 Temperature 100.3 F H Pulse Rate 119 H 118 H 116 H Pulse Rate [ Anterior Bilateral Throughout] Pulse Rate [ From Monitor] Respiratory 27 H 31 H Rate Respiratory Rate [Anterior Bilateral Throughout] Blood Pressure 100/61 128/60 128/60 O2 Sat by Pulse 98 97 95 Oximetry O2 Sat by Pulse Oximetry [ Anterior Bilateral Throughout] 03/27/21 03/27/21 03/27/21 04:30 05:00 05:30 Temperature Pulse Rate 118 H 116 H 115 H Pulse Rate [ Anterior Bilateral Throughout] Pulse Rate [ From Monitor] Respiratory 27 H 28 H 22 Rate Respiratory Rate [Anterior Bilateral Throughout] Blood Pressure 105/54 106/41 121/44 O2 Sat by Pulse 100 100 100 Oximetry O2 Sat by Pulse Oximetry [ Anterior Bilateral Throughout] 03/27/21 03/27/21 03/27/21 06:00 06:30 07:00 Temperature Pulse Rate 117 H 117 H 118 H Pulse Rate [ Anterior Bilateral Throughout] Pulse Rate [ From Monitor] Respiratory 39 H 30 H 37 H Rate Respiratory Rate [Anterior Bilateral Throughout] Blood Pressure 118/46 110/39 109/44 O2 Sat by Pulse 100 100 100 Oximetry O2 Sat by Pulse Oximetry [ Anterior Bilateral Throughout] 03/27/21 03/27/21 03/27/21 07:18 07:30 08:00 Temperature 102.4 F H Pulse Rate 120 H 122 H Pulse Rate [ 121 H Anterior Bilateral Throughout] Pulse Rate [ From Monitor] Respiratory 28 H 43 H Rate Respiratory 27 H Rate [Anterior Bilateral Throughout] Blood Pressure 104/40 115/45 O2 Sat by Pulse 100 100 Oximetry O2 Sat by Pulse Oximetry [ Anterior Bilateral Throughout] 03/27/21 03/27/21 03/27/21 08:30 08:40 09:00 Temperature Pulse Rate 118 H 120 H 125 H Pulse Rate [ Anterior Bilateral Throughout] Pulse Rate [ From Monitor] Respiratory 40 H 25 H Rate Respiratory Rate [Anterior Bilateral Throughout] Blood Pressure 109/45 115/47 130/44 O2 Sat by Pulse 100 96 93 Oximetry O2 Sat by Pulse Oximetry [ Anterior Bilateral Throughout] 03/27/21 03/27/21 03/27/21 09:30 10:00 10:30 Temperature Pulse Rate 126 H 125 H 124 H Pulse Rate [ Anterior Bilateral Throughout] Pulse Rate [ From Monitor] Respiratory 35 H 32 H 16 Rate Respiratory Rate [Anterior Bilateral Throughout] Blood Pressure 111/35 114/43 123/42 O2 Sat by Pulse 97 100 98 Oximetry O2 Sat by Pulse Oximetry [ Anterior Bilateral Throughout] 03/27/21 03/27/21 03/27/21 11:00 11:30 12:00 Temperature Pulse Rate 122 H 120 H 121 H Pulse Rate [ Anterior Bilateral Throughout] Pulse Rate [ 121 H From Monitor] Respiratory 17 24 26 H Rate Respiratory Rate [Anterior Bilateral Throughout] Blood Pressure 105/38 111/41 115/45 O2 Sat by Pulse 98 99 99 Oximetry O2 Sat by Pulse Oximetry [ Anterior Bilateral Throughout] 03/27/21 03/27/21 03/27/21 12:22 12:30 12:40 Temperature 99.8 F H Pulse Rate 117 H 122 H 118 H Pulse Rate [ Anterior Bilateral Throughout] Pulse Rate [ From Monitor] Respiratory 29 H 14 Rate Respiratory Rate [Anterior Bilateral Throughout] Blood Pressure 102/47 97/49 110/45 O2 Sat by Pulse 97 99 Oximetry O2 Sat by Pulse 100 Oximetry [ Anterior Bilateral Throughout] 03/27/21 03/27/21 03/27/21 12:43 12:47 13:00 Temperature 100.5 F H Pulse Rate 118 H 123 H Pulse Rate [ Anterior Bilateral Throughout] Pulse Rate [ From Monitor] Respiratory 35 H Rate Respiratory Rate [Anterior Bilateral Throughout] Blood Pressure 116/44 112/46 O2 Sat by Pulse 100 Oximetry O2 Sat by Pulse Oximetry [ Anterior Bilateral Throughout] 03/27/21 13:15 Temperature Pulse Rate 117 H Pulse Rate [ Anterior Bilateral Throughout] Pulse Rate [ From Monitor] Respiratory Rate Respiratory Rate [Anterior Bilateral Throughout] Blood Pressure 110/42 O2 Sat by Pulse Oximetry O2 Sat by Pulse Oximetry [ Anterior Bilateral Throughout] Constitutional: appears uncomfortable, other (morbidly obese female with mild ventilator dyssynchrony) Eyes: non-icteric, other (scleral erythema / bleeding is improving) ENT: oropharynx moist, other (ETT 25 cm BALJINDER) Neck: supple, no lymphadenopathy, no JVD, other (large circumference) Effort: mildly labored Ascultation: Bilateral: diminished breath sounds, rhonchi Percussion: Bilateral: not dull Cardiovascular: regular rate and rhythm Gastrointestinal: normoactive bowel sounds, soft, non-tender, non-distended (protuberant) Integumentary: normal Extremities: no cyanosis, no edema, pulses normal, no ischemia or petechiae Neurologic: non-focal exam (grossly), pupils equal and round, CN II-XII normal, motor strength normal and, other (moves all extremities spontaneously) Psychiatric: other (unasble to assess) CBC and BMP: 03/27/21 08:20 03/27/21 08:20 ABG, PT/INR, D-dimer: ABG ABG pH 7.361 (7.320-7.450) 03/27/21 03:20 POC ABG pCO2 50.0 mmHg (32.0-48.0) H 03/27/21 03:20 ABG pCO2 42.1 mm Hg 03/26/21 09:50 POC ABG pO2 58.3 mmHg (83-108) L 03/27/21 03:20 ABG pO2 79.9 mm Hg (80.0-90.0) L 03/26/21 09:50 POC ABG HCO3 27.7 03/27/21 03:20 ABG O2 Saturation 88.9 (0-100) 03/27/21 03:20 PT/INR, D-dimer PT 15.8 Sec. (12.2-14.9) H 03/22/21 13:40 INR 1.14 (0.87-1.13) H 03/22/21 13:40 D-Dimer > 80848 ng/mlDDU (0-234) H 03/22/21 13:40 Abnormal lab findings: Abnormal Labs 03/13/21 03/13/21 03/13/21 13:26 13:26 15:40 WBC RBC Hgb Hct MCH 27 L RDW 17.0 H Plt Count Lymph % (Auto) Price # (Auto) Seg Neutrophils % Seg Neutrophils # PT INR D-Dimer ABG pH POC ABG pCO2 POC ABG pO2 ABG pO2 ABG HCO3 ABG O2 Saturation ABG Base Excess ABG Hemoglobin ABG Oxyhemoglobin ABG Sodium ABG Potassium ABG Glucose Oxyhemoglobin Carboxyhemoglobin Sodium 136 L Potassium Chloride Carbon Dioxide BUN Creatinine Glucose 125 H 130 H POC Glucose Hemoglobin A1c Calcium Phosphorus Magnesium Lactate Dehydrogenase 235 H C-Reactive Protein 4.30 H Total Protein Albumin Triglycerides Arterial Blood Glucose Arterial Blood Ionized Calcium Urine Creatinine Random Vancomycin Coronavirus (PCR) Crossmatch 03/13/21 03/14/21 03/14/21 21:33 03:35 06:21 WBC 20.0 H RBC Hgb Hct MCH 27 L RDW 17.5 H Plt Count Lymph % (Auto) 7.8 L Price # (Auto) 1.3 H Seg Neutrophils % 85.4 H Seg Neutrophils # 17.1 H PT INR D-Dimer ABG pH 7.323 L 7.234 L POC ABG pCO2 POC ABG pO2 ABG pO2 69.8 L ABG HCO3 ABG O2 Saturation 92.9 L 94.9 L ABG Base Excess -3.3 L -5.4 L ABG Hemoglobin ABG Oxyhemoglobin ABG Sodium ABG Potassium ABG Glucose Oxyhemoglobin 91.2 L 93.2 L Carboxyhemoglobin Sodium Potassium Chloride Carbon Dioxide BUN Creatinine Glucose POC Glucose Hemoglobin A1c Calcium Phosphorus Magnesium Lactate Dehydrogenase C-Reactive Protein Total Protein Albumin Triglycerides Arterial Blood Glucose Arterial Blood Ionized Calcium Urine Creatinine Random Vancomycin Coronavirus (PCR) Crossmatch 03/14/21 03/14/21 03/14/21 06:21 07:47 11:21 WBC RBC Hgb Hct MCH RDW Plt Count Lymph % (Auto) Price # (Auto) Seg Neutrophils % Seg Neutrophils # PT INR D-Dimer ABG pH POC ABG pCO2 POC ABG pO2 ABG pO2 ABG HCO3 ABG O2 Saturation ABG Base Excess ABG Hemoglobin ABG Oxyhemoglobin ABG Sodium ABG Potassium ABG Glucose Oxyhemoglobin Carboxyhemoglobin Sodium 136 L 136 L Potassium 6.2 H* D 5.4 H Chloride Carbon Dioxide 21 L 21 L BUN Creatinine 1.5 H D 1.8 H Glucose 144 H 141 H POC Glucose 147 H Hemoglobin A1c Calcium Phosphorus Magnesium Lactate Dehydrogenase C-Reactive Protein Total Protein 8.7 H 9.2 H Albumin 3.8 L Triglycerides Arterial Blood Glucose Arterial Blood Ionized Calcium Urine Creatinine Random Vancomycin Coronavirus (PCR) Crossmatch 03/14/21 03/14/21 03/14/21 17:29 17:50 18:35 WBC RBC Hgb Hct MCH RDW Plt Count Lymph % (Auto) Price # (Auto) Seg Neutrophils % Seg Neutrophils # PT INR D-Dimer ABG pH POC ABG pCO2 POC ABG pO2 ABG pO2 ABG HCO3 ABG O2 Saturation ABG Base Excess ABG Hemoglobin ABG Oxyhemoglobin ABG Sodium ABG Potassium ABG Glucose Oxyhemoglobin Carboxyhemoglobin Sodium 135 L Potassium 6.4 H* Chloride Carbon Dioxide 15 L BUN 26 H Creatinine 3.4 H D Glucose 165 H POC Glucose 209 H Hemoglobin A1c Calcium Phosphorus Magnesium Lactate Dehydrogenase C-Reactive Protein Total Protein Albumin Triglycerides Arterial Blood Glucose Arterial Blood Ionized Calcium Urine Creatinine 40.1 H Random Vancomycin Coronavirus (PCR) Crossmatch 03/14/21 03/14/21 03/14/21 18:46 22:23 23:52 WBC RBC Hgb Hct MCH RDW Plt Count Lymph % (Auto) Price # (Auto) Seg Neutrophils % Seg Neutrophils # PT INR D-Dimer ABG pH 7.270 L POC ABG pCO2 POC ABG pO2 63.4 L ABG pO2 ABG HCO3 ABG O2 Saturation ABG Base Excess ABG Hemoglobin ABG Oxyhemoglobin 90.2 L ABG Sodium 134.9 L ABG Potassium 5.3 H ABG Glucose 134 H Oxyhemoglobin Carboxyhemoglobin Sodium 136 L Potassium 5.2 H Chloride Carbon Dioxide 20 L BUN 29 H Creatinine 3.6 H Glucose 236 H POC Glucose 128 H Hemoglobin A1c Calcium Phosphorus Magnesium Lactate Dehydrogenase C-Reactive Protein Total Protein Albumin 3.2 L Triglycerides Arterial Blood Glucose 134 H Arterial Blood Ionized Calcium Urine Creatinine Random Vancomycin Coronavirus (PCR) Crossmatch 03/14/21 03/15/21 03/15/21 Unknown 05:00 05:09 WBC 22.5 H RBC Hgb Hct MCH 27 L RDW 17.6 H Plt Count Lymph % (Auto) Price # (Auto) Seg Neutrophils % Seg Neutrophils # PT INR D-Dimer ABG pH POC ABG pCO2 POC ABG pO2 ABG pO2 ABG HCO3 ABG O2 Saturation ABG Base Excess ABG Hemoglobin ABG Oxyhemoglobin ABG Sodium ABG Potassium ABG Glucose Oxyhemoglobin Carboxyhemoglobin Sodium Potassium Chloride Carbon Dioxide BUN Creatinine Glucose POC Glucose 116 H Hemoglobin A1c Calcium Phosphorus Magnesium Lactate Dehydrogenase C-Reactive Protein Total Protein Albumin Triglycerides Arterial Blood Glucose Arterial Blood Ionized Calcium Urine Creatinine Random Vancomycin Coronavirus (PCR) Positive A Crossmatch 03/15/21 03/15/21 03/15/21 05:09 05:09 05:09 WBC RBC Hgb Hct MCH RDW Plt Count Lymph % (Auto) Price # (Auto) Seg Neutrophils % Seg Neutrophils # PT INR D-Dimer ABG pH POC ABG pCO2 POC ABG pO2 ABG pO2 ABG HCO3 ABG O2 Saturation ABG Base Excess ABG Hemoglobin ABG Oxyhemoglobin ABG Sodium ABG Potassium ABG Glucose Oxyhemoglobin Carboxyhemoglobin Sodium 136 L Potassium 6.5 H* D Chloride Carbon Dioxide 17 L BUN 41 H Creatinine 5.3 H Glucose 128 H POC Glucose Hemoglobin A1c 6.3 H Calcium Phosphorus Magnesium Lactate Dehydrogenase C-Reactive Protein 12.10 H Total Protein Albumin 3.1 L Triglycerides Arterial Blood Glucose Arterial Blood Ionized Calcium Urine Creatinine Random Vancomycin Coronavirus (PCR) Crossmatch 03/15/21 03/15/21 03/15/21 10:00 21:50 23:39 WBC RBC Hgb Hct MCH RDW Plt Count Lymph % (Auto) Price # (Auto) Seg Neutrophils % Seg Neutrophils # PT INR D-Dimer ABG pH 7.098 L POC ABG pCO2 72.7 H POC ABG pO2 ABG pO2 162.5 H ABG HCO3 ABG O2 Saturation ABG Base Excess ABG Hemoglobin 10.1 L ABG Oxyhemoglobin ABG Sodium ABG Potassium 5.7 H ABG Glucose Oxyhemoglobin Carboxyhemoglobin 0.4 L Sodium Potassium Chloride Carbon Dioxide BUN Creatinine Glucose POC Glucose 156 H Hemoglobin A1c Calcium Phosphorus Magnesium Lactate Dehydrogenase C-Reactive Protein Total Protein Albumin Triglycerides Arterial Blood Glucose Arterial Blood Ionized Calcium Urine Creatinine Random Vancomycin Coronavirus (PCR) Crossmatch 03/16/21 03/16/21 03/16/21 05:00 05:30 05:30 WBC 16.7 H RBC 3.59 L Hgb 9.6 L Hct 30.1 L MCH 27 L RDW 17.5 H Plt Count Lymph % (Auto) Price # (Auto) Seg Neutrophils % Seg Neutrophils # PT INR D-Dimer ABG pH POC ABG pCO2 POC ABG pO2 ABG pO2 ABG HCO3 ABG O2 Saturation ABG Base Excess ABG Hemoglobin ABG Oxyhemoglobin ABG Sodium ABG Potassium ABG Glucose Oxyhemoglobin Carboxyhemoglobin Sodium Potassium Chloride Carbon Dioxide BUN 46 H Creatinine 6.2 H Glucose 131 H POC Glucose Hemoglobin A1c Calcium Phosphorus 6.00 H D Magnesium Lactate Dehydrogenase 318 H C-Reactive Protein 18.60 H Total Protein Albumin 3.0 L Triglycerides Arterial Blood Glucose Arterial Blood Ionized Calcium Urine Creatinine Random Vancomycin Coronavirus (PCR) Crossmatch 03/16/21 03/16/21 03/16/21 05:51 06:37 08:58 WBC RBC Hgb Hct MCH RDW Plt Count Lymph % (Auto) Price # (Auto) Seg Neutrophils % Seg Neutrophils # PT INR D-Dimer 3041.12 H ABG pH POC ABG pCO2 POC ABG pO2 ABG pO2 141.5 H ABG HCO3 ABG O2 Saturation ABG Base Excess ABG Hemoglobin 9.7 L ABG Oxyhemoglobin ABG Sodium ABG Potassium ABG Glucose Oxyhemoglobin Carboxyhemoglobin Sodium Potassium Chloride Carbon Dioxide BUN Creatinine Glucose POC Glucose 126 H Hemoglobin A1c Calcium Phosphorus Magnesium Lactate Dehydrogenase C-Reactive Protein Total Protein Albumin Triglycerides Arterial Blood Glucose Arterial Blood Ionized Calcium Urine Creatinine Random Vancomycin Coronavirus (PCR) Crossmatch 03/16/21 03/16/21 03/16/21 12:11 16:51 21:00 WBC RBC Hgb Hct MCH RDW Plt Count Lymph % (Auto) Price # (Auto) Seg Neutrophils % Seg Neutrophils # PT INR D-Dimer ABG pH 7.239 L POC ABG pCO2 61.5 H POC ABG pO2 80.8 L ABG pO2 ABG HCO3 ABG O2 Saturation ABG Base Excess ABG Hemoglobin 11.4 L ABG Oxyhemoglobin 93.5 L ABG Sodium ABG Potassium 5.4 H ABG Glucose 137 H Oxyhemoglobin Carboxyhemoglobin 0.2 L Sodium Potassium Chloride Carbon Dioxide BUN Creatinine Glucose POC Glucose 156 H 133 H Hemoglobin A1c Calcium Phosphorus Magnesium Lactate Dehydrogenase C-Reactive Protein Total Protein Albumin Triglycerides Arterial Blood Glucose 137 H Arterial Blood Ionized Calcium Urine Creatinine Random Vancomycin Coronavirus (PCR) Crossmatch 03/16/21 03/17/21 03/17/21 23:42 05:23 05:23 WBC 18.4 H RBC Hgb Hct MCH 27 L RDW 17.4 H Plt Count Lymph % (Auto) Price # (Auto) Seg Neutrophils % Seg Neutrophils # PT INR D-Dimer ABG pH POC ABG pCO2 POC ABG pO2 ABG pO2 ABG HCO3 ABG O2 Saturation ABG Base Excess ABG Hemoglobin ABG Oxyhemoglobin ABG Sodium ABG Potassium ABG Glucose Oxyhemoglobin Carboxyhemoglobin Sodium Potassium 5.2 H Chloride Carbon Dioxide 21 L BUN 79 H Creatinine 8.6 H Glucose 124 H POC Glucose 133 H Hemoglobin A1c Calcium Phosphorus Magnesium Lactate Dehydrogenase C-Reactive Protein Total Protein Albumin 3.2 L Triglycerides 285 H Arterial Blood Glucose Arterial Blood Ionized Calcium Urine Creatinine Random Vancomycin Coronavirus (PCR) Crossmatch 03/17/21 03/17/21 03/17/21 05:23 10:48 12:20 WBC RBC Hgb Hct MCH RDW Plt Count Lymph % (Auto) Price # (Auto) Seg Neutrophils % Seg Neutrophils # PT INR D-Dimer ABG pH 7.294 L POC ABG pCO2 POC ABG pO2 ABG pO2 90.3 H ABG HCO3 ABG O2 Saturation ABG Base Excess ABG Hemoglobin 9.9 L ABG Oxyhemoglobin ABG Sodium ABG Potassium ABG Glucose Oxyhemoglobin Carboxyhemoglobin Sodium Potassium 5.2 H Chloride Carbon Dioxide 21 L BUN 79 H Creatinine 8.4 H Glucose 125 H POC Glucose 171 H Hemoglobin A1c Calcium Phosphorus 9.90 H D Magnesium 2.40 H Lactate Dehydrogenase C-Reactive Protein Total Protein Albumin Triglycerides Arterial Blood Glucose Arterial Blood Ionized Calcium Urine Creatinine Random Vancomycin Coronavirus (PCR) Crossmatch 03/17/21 03/17/21 03/18/21 17:24 21:00 04:30 WBC RBC Hgb Hct MCH RDW Plt Count Lymph % (Auto) Price # (Auto) Seg Neutrophils % Seg Neutrophils # PT INR D-Dimer 9953.09 H ABG pH 7.310 L POC ABG pCO2 54.5 H POC ABG pO2 62.3 L ABG pO2 ABG HCO3 ABG O2 Saturation ABG Base Excess ABG Hemoglobin 10.2 L ABG Oxyhemoglobin 88.6 L ABG Sodium ABG Potassium 4.7 H ABG Glucose 99 H Oxyhemoglobin Carboxyhemoglobin 0.3 L Sodium Potassium Chloride Carbon Dioxide BUN Creatinine Glucose POC Glucose 121 H Hemoglobin A1c Calcium Phosphorus Magnesium Lactate Dehydrogenase C-Reactive Protein Total Protein Albumin Triglycerides Arterial Blood Glucose 99 H Arterial Blood Ionized Calcium 4.3 L Urine Creatinine Random Vancomycin Coronavirus (PCR) Crossmatch 03/18/21 03/18/21 03/18/21 04:30 04:30 11:34 WBC 12.8 H RBC 3.49 L Hgb 9.4 L Hct 29.3 L MCH 27 L RDW 17.4 H Plt Count Lymph % (Auto) Price # (Auto) Seg Neutrophils % Seg Neutrophils # PT INR D-Dimer ABG pH POC ABG pCO2 POC ABG pO2 ABG pO2 ABG HCO3 ABG O2 Saturation ABG Base Excess ABG Hemoglobin ABG Oxyhemoglobin ABG Sodium ABG Potassium ABG Glucose Oxyhemoglobin Carboxyhemoglobin Sodium Potassium Chloride Carbon Dioxide BUN 69 H Creatinine 7.3 H Glucose POC Glucose 114 H Hemoglobin A1c Calcium 8.2 L Phosphorus 7.60 H D Magnesium Lactate Dehydrogenase 477 H C-Reactive Protein 6.90 H Total Protein Albumin Triglycerides Arterial Blood Glucose Arterial Blood Ionized Calcium Urine Creatinine Random Vancomycin Coronavirus (PCR) Crossmatch 03/18/21 03/19/21 03/19/21 21:44 04:13 04:13 WBC 13.7 H RBC 3.32 L Hgb 9.0 L Hct 28.1 L MCH 27 L RDW 16.9 H Plt Count Lymph % (Auto) Price # (Auto) Seg Neutrophils % Seg Neutrophils # PT INR D-Dimer ABG pH 7.290 L POC ABG pCO2 POC ABG pO2 ABG pO2 119.7 H ABG HCO3 28.0 H ABG O2 Saturation ABG Base Excess ABG Hemoglobin 9.6 L ABG Oxyhemoglobin ABG Sodium ABG Potassium ABG Glucose Oxyhemoglobin Carboxyhemoglobin Sodium Potassium Chloride Carbon Dioxide BUN Creatinine Glucose POC Glucose Hemoglobin A1c Calcium Phosphorus Magnesium Lactate Dehydrogenase C-Reactive Protein Total Protein Albumin Triglycerides Arterial Blood Glucose Arterial Blood Ionized Calcium Urine Creatinine Random Vancomycin 43.5 H Coronavirus (PCR) Crossmatch 03/19/21 03/19/21 03/19/21 04:13 05:59 11:40 WBC RBC Hgb Hct MCH RDW Plt Count Lymph % (Auto) Price # (Auto) Seg Neutrophils % Seg Neutrophils # PT INR D-Dimer ABG pH POC ABG pCO2 POC ABG pO2 ABG pO2 ABG HCO3 ABG O2 Saturation ABG Base Excess ABG Hemoglobin ABG Oxyhemoglobin ABG Sodium ABG Potassium ABG Glucose Oxyhemoglobin Carboxyhemoglobin Sodium Potassium Chloride Carbon Dioxide BUN 55 H Creatinine 7.0 H Glucose POC Glucose 116 H 145 H Hemoglobin A1c Calcium 8.1 L Phosphorus 7.90 H Magnesium Lactate Dehydrogenase C-Reactive Protein Total Protein Albumin Triglycerides Arterial Blood Glucose Arterial Blood Ionized Calcium Urine Creatinine Random Vancomycin Coronavirus (PCR) Crossmatch 03/19/21 03/19/21 03/20/21 17:01 23:41 04:00 WBC 15.6 H RBC 3.55 L Hgb 9.6 L Hct MCH 27 L RDW 16.8 H Plt Count 139 L Lymph % (Auto) Price # (Auto) Seg Neutrophils % Seg Neutrophils # PT INR D-Dimer ABG pH POC ABG pCO2 POC ABG pO2 ABG pO2 ABG HCO3 ABG O2 Saturation ABG Base Excess ABG Hemoglobin ABG Oxyhemoglobin ABG Sodium ABG Potassium ABG Glucose Oxyhemoglobin Carboxyhemoglobin Sodium Potassium Chloride Carbon Dioxide BUN Creatinine Glucose POC Glucose 111 H 118 H Hemoglobin A1c Calcium Phosphorus Magnesium Lactate Dehydrogenase C-Reactive Protein Total Protein Albumin Triglycerides Arterial Blood Glucose Arterial Blood Ionized Calcium Urine Creatinine Random Vancomycin Coronavirus (PCR) Crossmatch 03/20/21 03/20/21 03/20/21 04:00 04:00 04:37 WBC RBC Hgb Hct MCH RDW Plt Count Lymph % (Auto) Price # (Auto) Seg Neutrophils % Seg Neutrophils # PT INR D-Dimer > 64643 H ABG pH 7.306 L POC ABG pCO2 POC ABG pO2 ABG pO2 ABG HCO3 27.9 H ABG O2 Saturation ABG Base Excess ABG Hemoglobin 5.2 L ABG Oxyhemoglobin ABG Sodium ABG Potassium ABG Glucose Oxyhemoglobin Carboxyhemoglobin Sodium Potassium 5.2 H Chloride 97.6 L Carbon Dioxide BUN 52 H Creatinine 6.2 H Glucose 104 H POC Glucose Hemoglobin A1c Calcium Phosphorus 8.60 H Magnesium Lactate Dehydrogenase C-Reactive Protein 6.90 H Total Protein Albumin Triglycerides Arterial Blood Glucose Arterial Blood Ionized Calcium Urine Creatinine Random Vancomycin Coronavirus (PCR) Crossmatch 1103/20/21 03/20/21 13:50 17:46 17:56 WBC RBC Hgb Hct MCH RDW Plt Count Lymph % (Auto) Price # (Auto) Seg Neutrophils % Seg Neutrophils # PT INR D-Dimer ABG pH POC ABG pCO2 POC ABG pO2 ABG pO2 ABG HCO3 ABG O2 Saturation ABG Base Excess ABG Hemoglobin ABG Oxyhemoglobin ABG Sodium ABG Potassium ABG Glucose Oxyhemoglobin Carboxyhemoglobin Sodium Potassium Chloride Carbon Dioxide BUN 63 H 43 H Creatinine Glucose POC Glucose 145 H Hemoglobin A1c Calcium Phosphorus Magnesium Lactate Dehydrogenase C-Reactive Protein Total Protein Albumin Triglycerides Arterial Blood Glucose Arterial Blood Ionized Calcium Urine Creatinine Random Vancomycin Coronavirus (PCR) Crossmatch 03/20/21 03/21/21 03/21/21 23:18 06:58 06:58 WBC 14.4 H RBC 3.41 L Hgb 9.5 L Hct 28.6 L MCH RDW 17.4 H Plt Count 107 L Lymph % (Auto) Price # (Auto) Seg Neutrophils % Seg Neutrophils # PT INR D-Dimer ABG pH POC ABG pCO2 POC ABG pO2 ABG pO2 ABG HCO3 ABG O2 Saturation ABG Base Excess ABG Hemoglobin ABG Oxyhemoglobin ABG Sodium ABG Potassium ABG Glucose Oxyhemoglobin Carboxyhemoglobin Sodium Potassium Chloride Carbon Dioxide BUN 60 H Creatinine 7.7 H Glucose POC Glucose 106 H Hemoglobin A1c Calcium Phosphorus Magnesium Lactate Dehydrogenase C-Reactive Protein Total Protein Albumin Triglycerides Arterial Blood Glucose Arterial Blood Ionized Calcium Urine Creatinine Random Vancomycin Coronavirus (PCR) Crossmatch 03/21/21 03/21/21 03/21/21 11:11 18:04 Unknown WBC RBC Hgb Hct MCH RDW Plt Count Lymph % (Auto) Price # (Auto) Seg Neutrophils % Seg Neutrophils # PT INR D-Dimer ABG pH 7.270 L POC ABG pCO2 58.7 H POC ABG pO2 76.9 L ABG pO2 ABG HCO3 ABG O2 Saturation ABG Base Excess ABG Hemoglobin 9.9 L ABG Oxyhemoglobin 92.4 L ABG Sodium 135.8 L ABG Potassium 4.6 H ABG Glucose Oxyhemoglobin Carboxyhemoglobin 0.1 L Sodium Potassium Chloride Carbon Dioxide BUN Creatinine Glucose POC Glucose 109 H 141 H Hemoglobin A1c Calcium Phosphorus Magnesium Lactate Dehydrogenase C-Reactive Protein Total Protein Albumin Triglycerides Arterial Blood Glucose Arterial Blood Ionized Calcium 4.5 L Urine Creatinine Random Vancomycin Coronavirus (PCR) Crossmatch 03/22/21 03/22/21 03/22/21 03:09 07:10 10:00 WBC RBC Hgb Hct MCH RDW Plt Count Lymph % (Auto) Price # (Auto) Seg Neutrophils % Seg Neutrophils # PT INR D-Dimer ABG pH 7.206 L 7.245 L POC ABG pCO2 55.6 H POC ABG pO2 ABG pO2 90.6 H ABG HCO3 ABG O2 Saturation ABG Base Excess -4.4 L ABG Hemoglobin 9.0 L 8.4 L ABG Oxyhemoglobin ABG Sodium 123.4 L ABG Potassium 5.6 H ABG Glucose 106 H Oxyhemoglobin 94.5 L Carboxyhemoglobin 0.1 L Sodium Potassium 5.4 H Chloride 96.8 L Carbon Dioxide BUN 89 H Creatinine 8.7 H Glucose 131 H POC Glucose Hemoglobin A1c Calcium Phosphorus Magnesium Lactate Dehydrogenase C-Reactive Protein 9.40 H Total Protein Albumin Triglycerides Arterial Blood Glucose 106 H Arterial Blood Ionized Calcium Urine Creatinine Random Vancomycin Coronavirus (PCR) Crossmatch 03/22/21 03/22/21 03/22/21 10:00 12:37 13:19 WBC RBC 3.05 L Hgb 8.4 L Hct 25.5 L MCH RDW 17.5 H Plt Count 108 L Lymph % (Auto) Price # (Auto) Seg Neutrophils % Seg Neutrophils # PT INR D-Dimer ABG pH POC ABG pCO2 POC ABG pO2 ABG pO2 ABG HCO3 ABG O2 Saturation ABG Base Excess ABG Hemoglobin ABG Oxyhemoglobin ABG Sodium ABG Potassium ABG Glucose Oxyhemoglobin Carboxyhemoglobin Sodium Potassium Chloride Carbon Dioxide BUN Creatinine 8.7 H Glucose POC Glucose 140 H Hemoglobin A1c Calcium Phosphorus Magnesium Lactate Dehydrogenase C-Reactive Protein Total Protein Albumin Triglycerides Arterial Blood Glucose Arterial Blood Ionized Calcium Urine Creatinine Random Vancomycin Coronavirus (PCR) Crossmatch 03/22/21 03/22/21 03/22/21 13:40 17:14 18:21 WBC RBC Hgb Hct MCH RDW Plt Count Lymph % (Auto) Price # (Auto) Seg Neutrophils % Seg Neutrophils # PT 15.8 H INR 1.14 H D-Dimer > 12708 H ABG pH POC ABG pCO2 POC ABG pO2 ABG pO2 ABG HCO3 ABG O2 Saturation ABG Base Excess ABG Hemoglobin ABG Oxyhemoglobin ABG Sodium ABG Potassium ABG Glucose Oxyhemoglobin Carboxyhemoglobin Sodium Potassium Chloride Carbon Dioxide BUN Creatinine Glucose POC Glucose 117 H 112 H Hemoglobin A1c Calcium Phosphorus Magnesium Lactate Dehydrogenase C-Reactive Protein Total Protein Albumin Triglycerides Arterial Blood Glucose Arterial Blood Ionized Calcium Urine Creatinine Random Vancomycin Coronavirus (PCR) Crossmatch 03/22/21 03/22/21 03/23/21 21:25 22:57 04:30 WBC RBC Hgb Hct MCH RDW Plt Count Lymph % (Auto) Price # (Auto) Seg Neutrophils % Seg Neutrophils # PT INR D-Dimer ABG pH 7.188 L* POC ABG pCO2 POC ABG pO2 ABG pO2 97.9 H ABG HCO3 ABG O2 Saturation ABG Base Excess -3.7 L ABG Hemoglobin 9.2 L ABG Oxyhemoglobin ABG Sodium ABG Potassium ABG Glucose Oxyhemoglobin 94.4 L Carboxyhemoglobin Sodium Potassium Chloride Carbon Dioxide BUN Creatinine Glucose POC Glucose 106 H Hemoglobin A1c Calcium Phosphorus Magnesium Lactate Dehydrogenase C-Reactive Protein Total Protein Albumin Triglycerides 381 H Arterial Blood Glucose Arterial Blood Ionized Calcium Urine Creatinine Random Vancomycin Coronavirus (PCR) Crossmatch 03/23/21 03/23/21 03/23/21 04:30 04:30 05:37 WBC 20.1 H RBC 3.17 L Hgb 8.6 L Hct 27.2 L MCH 27 L RDW 17.4 H Plt Count 118 L Lymph % (Auto) Price # (Auto) Seg Neutrophils % Seg Neutrophils # PT INR D-Dimer ABG pH POC ABG pCO2 POC ABG pO2 ABG pO2 ABG HCO3 ABG O2 Saturation ABG Base Excess ABG Hemoglobin ABG Oxyhemoglobin ABG Sodium ABG Potassium ABG Glucose Oxyhemoglobin Carboxyhemoglobin Sodium Potassium 5.2 H Chloride 97.1 L Carbon Dioxide 21 L BUN 82 H Creatinine 9.1 H Glucose 109 H POC Glucose 130 H Hemoglobin A1c Calcium Phosphorus 10.80 H Magnesium 3.50 H Lactate Dehydrogenase C-Reactive Protein Total Protein Albumin Triglycerides Arterial Blood Glucose Arterial Blood Ionized Calcium Urine Creatinine Random Vancomycin Coronavirus (PCR) Crossmatch 03/23/21 03/23/21 03/23/21 08:44 11:30 16:09 WBC RBC Hgb Hct MCH RDW Plt Count Lymph % (Auto) Price # (Auto) Seg Neutrophils % Seg Neutrophils # PT INR D-Dimer ABG pH 7.190 L POC ABG pCO2 57.9 H POC ABG pO2 79.2 L ABG pO2 ABG HCO3 ABG O2 Saturation ABG Base Excess ABG Hemoglobin 11.8 L ABG Oxyhemoglobin 92.3 L ABG Sodium 131.0 L ABG Potassium 5.0 H ABG Glucose 122 H Oxyhemoglobin Carboxyhemoglobin 0.4 L Sodium Potassium Chloride Carbon Dioxide BUN Creatinine Glucose POC Glucose 129 H 148 H Hemoglobin A1c Calcium Phosphorus Magnesium Lactate Dehydrogenase C-Reactive Protein Total Protein Albumin Triglycerides Arterial Blood Glucose 122 H Arterial Blood Ionized Calcium 4.4 L Urine Creatinine Random Vancomycin Coronavirus (PCR) Crossmatch 03/23/21 03/24/21 03/24/21 21:00 03:35 04:00 WBC 17.8 H RBC 2.96 L Hgb 8.1 L Hct 25.0 L MCH 27 L RDW 17.7 H Plt Count 124 L Lymph % (Auto) Price # (Auto) Seg Neutrophils % Seg Neutrophils # PT INR D-Dimer ABG pH 7.223 L POC ABG pCO2 50.3 H POC ABG pO2 114.4 H ABG pO2 ABG HCO3 ABG O2 Saturation ABG Base Excess ABG Hemoglobin 8.8 L ABG Oxyhemoglobin ABG Sodium 130.4 L ABG Potassium 5.1 H ABG Glucose 126 H Oxyhemoglobin Carboxyhemoglobin 0.2 L Sodium Potassium Chloride Carbon Dioxide BUN Creatinine Glucose POC Glucose 148 H Hemoglobin A1c Calcium Phosphorus Magnesium Lactate Dehydrogenase C-Reactive Protein Total Protein Albumin Triglycerides Arterial Blood Glucose 126 H Arterial Blood Ionized Calcium 4.4 L Urine Creatinine Random Vancomycin Coronavirus (PCR) Crossmatch 03/24/21 03/24/21 03/24/21 04:00 06:49 12:29 WBC RBC Hgb Hct MCH RDW Plt Count Lymph % (Auto) Price # (Auto) Seg Neutrophils % Seg Neutrophils # PT INR D-Dimer ABG pH POC ABG pCO2 POC ABG pO2 ABG pO2 ABG HCO3 ABG O2 Saturation ABG Base Excess ABG Hemoglobin ABG Oxyhemoglobin ABG Sodium ABG Potassium ABG Glucose Oxyhemoglobin Carboxyhemoglobin Sodium Potassium Chloride 95.6 L Carbon Dioxide 20 L BUN 108 H Creatinine 10.8 H Glucose 155 H POC Glucose 136 H 142 H Hemoglobin A1c Calcium Phosphorus Magnesium Lactate Dehydrogenase C-Reactive Protein Total Protein Albumin Triglycerides Arterial Blood Glucose Arterial Blood Ionized Calcium Urine Creatinine Random Vancomycin Coronavirus (PCR) Crossmatch 03/24/21 03/25/21 03/25/21 21:35 00:15 05:51 WBC RBC Hgb Hct MCH RDW Plt Count Lymph % (Auto) Price # (Auto) Seg Neutrophils % Seg Neutrophils # PT INR D-Dimer ABG pH 7.241 L POC ABG pCO2 POC ABG pO2 ABG pO2 72.4 L ABG HCO3 ABG O2 Saturation 90.3 L ABG Base Excess ABG Hemoglobin 7.9 L ABG Oxyhemoglobin ABG Sodium ABG Potassium ABG Glucose Oxyhemoglobin 88.4 L Carboxyhemoglobin Sodium Potassium Chloride Carbon Dioxide BUN Creatinine Glucose POC Glucose 110 H 121 H Hemoglobin A1c Calcium Phosphorus Magnesium Lactate Dehydrogenase C-Reactive Protein Total Protein Albumin Triglycerides Arterial Blood Glucose Arterial Blood Ionized Calcium Urine Creatinine Random Vancomycin Coronavirus (PCR) Crossmatch 03/25/21 03/25/21 03/25/21 05:54 05:54 12:21 WBC 12.4 H RBC 2.52 L Hgb 6.9 L Hct 21.1 L MCH RDW 17.4 H Plt Count 102 L Lymph % (Auto) Price # (Auto) Seg Neutrophils % Seg Neutrophils # PT INR D-Dimer ABG pH POC ABG pCO2 POC ABG pO2 ABG pO2 ABG HCO3 ABG O2 Saturation ABG Base Excess ABG Hemoglobin ABG Oxyhemoglobin ABG Sodium ABG Potassium ABG Glucose Oxyhemoglobin Carboxyhemoglobin Sodium Potassium Chloride 96.7 L Carbon Dioxide BUN 81 H Creatinine 8.1 H Glucose 116 H POC Glucose 138 H Hemoglobin A1c Calcium 8.2 L Phosphorus Magnesium Lactate Dehydrogenase C-Reactive Protein Total Protein Albumin Triglycerides Arterial Blood Glucose Arterial Blood Ionized Calcium Urine Creatinine Random Vancomycin Coronavirus (PCR) Crossmatch 03/25/21 03/25/21 03/25/21 13:45 17:32 21:30 WBC RBC Hgb Hct MCH RDW Plt Count Lymph % (Auto) Price # (Auto) Seg Neutrophils % Seg Neutrophils # PT INR D-Dimer ABG pH POC ABG pCO2 POC ABG pO2 ABG pO2 70.2 L ABG HCO3 ABG O2 Saturation ABG Base Excess ABG Hemoglobin 6.8 L ABG Oxyhemoglobin ABG Sodium ABG Potassium ABG Glucose Oxyhemoglobin 94.5 L Carboxyhemoglobin Sodium Potassium Chloride Carbon Dioxide BUN Creatinine Glucose POC Glucose 110 H Hemoglobin A1c Calcium Phosphorus Magnesium Lactate Dehydrogenase C-Reactive Protein Total Protein Albumin Triglycerides Arterial Blood Glucose Arterial Blood Ionized Calcium Urine Creatinine Random Vancomycin Coronavirus (PCR) Crossmatch See Detail 03/25/21 03/25/21 03/26/21 23:29 Unknown 05:15 WBC 12.4 H 14.0 H RBC 2.49 L 2.83 L Hgb 6.8 L 7.6 L Hct 20.9 L 23.6 L MCH 27 L 27 L RDW 18.0 H 17.1 H Plt Count 107 L 116 L Lymph % (Auto) Price # (Auto) Seg Neutrophils % Seg Neutrophils # PT INR D-Dimer ABG pH POC ABG pCO2 POC ABG pO2 ABG pO2 ABG HCO3 ABG O2 Saturation ABG Base Excess ABG Hemoglobin ABG Oxyhemoglobin ABG Sodium ABG Potassium ABG Glucose Oxyhemoglobin Carboxyhemoglobin Sodium Potassium Chloride Carbon Dioxide BUN Creatinine Glucose POC Glucose 113 H Hemoglobin A1c Calcium Phosphorus Magnesium Lactate Dehydrogenase C-Reactive Protein Total Protein Albumin Triglycerides Arterial Blood Glucose Arterial Blood Ionized Calcium Urine Creatinine Random Vancomycin Coronavirus (PCR) Crossmatch 03/26/21 03/26/21 03/26/21 05:15 05:35 09:50 WBC RBC Hgb Hct MCH RDW Plt Count Lymph % (Auto) Price # (Auto) Seg Neutrophils % Seg Neutrophils # PT INR D-Dimer ABG pH POC ABG pCO2 POC ABG pO2 ABG pO2 79.9 L ABG HCO3 ABG O2 Saturation ABG Base Excess ABG Hemoglobin 7.1 L ABG Oxyhemoglobin ABG Sodium ABG Potassium ABG Glucose Oxyhemoglobin 94.9 L Carboxyhemoglobin Sodium Potassium 3.4 L Chloride Carbon Dioxide BUN 70 H Creatinine 7.3 H Glucose 142 H POC Glucose 130 H Hemoglobin A1c Calcium 8.2 L Phosphorus Magnesium Lactate Dehydrogenase C-Reactive Protein Total Protein Albumin Triglycerides 254 H Arterial Blood Glucose Arterial Blood Ionized Calcium Urine Creatinine Random Vancomycin Coronavirus (PCR) Crossmatch 03/26/21 03/26/21 03/26/21 11:45 16:36 23:33 WBC RBC Hgb Hct MCH RDW Plt Count Lymph % (Auto) Price # (Auto) Seg Neutrophils % Seg Neutrophils # PT INR D-Dimer ABG pH POC ABG pCO2 POC ABG pO2 ABG pO2 ABG HCO3 ABG O2 Saturation ABG Base Excess ABG Hemoglobin ABG Oxyhemoglobin ABG Sodium ABG Potassium ABG Glucose Oxyhemoglobin Carboxyhemoglobin Sodium Potassium Chloride Carbon Dioxide BUN Creatinine Glucose POC Glucose 123 H 121 H 120 H Hemoglobin A1c Calcium Phosphorus Magnesium Lactate Dehydrogenase C-Reactive Protein Total Protein Albumin Triglycerides Arterial Blood Glucose Arterial Blood Ionized Calcium Urine Creatinine Random Vancomycin Coronavirus (PCR) Crossmatch 03/27/21 03/27/21 03/27/21 03:20 04:14 08:20 WBC 13.2 H RBC 2.82 L Hgb 7.9 L Hct 23.5 L MCH RDW 17.3 H Plt Count 125 L Lymph % (Auto) Price # (Auto) Seg Neutrophils % Seg Neutrophils # PT INR D-Dimer ABG pH POC ABG pCO2 50.0 H POC ABG pO2 58.3 L ABG pO2 ABG HCO3 ABG O2 Saturation ABG Base Excess ABG Hemoglobin 11.3 L ABG Oxyhemoglobin 88.5 L ABG Sodium ABG Potassium ABG Glucose 132 H Oxyhemoglobin Carboxyhemoglobin 0.2 L Sodium Potassium Chloride Carbon Dioxide BUN Creatinine Glucose POC Glucose 119 H Hemoglobin A1c Calcium Phosphorus Magnesium Lactate Dehydrogenase C-Reactive Protein Total Protein Albumin Triglycerides Arterial Blood Glucose 132 H Arterial Blood Ionized Calcium Urine Creatinine Random Vancomycin Coronavirus (PCR) Crossmatch 03/27/21 03/27/21 08:20 11:39 WBC RBC Hgb Hct MCH RDW Plt Count Lymph % (Auto) Price # (Auto) Seg Neutrophils % Seg Neutrophils # PT INR D-Dimer ABG pH POC ABG pCO2 POC ABG pO2 ABG pO2 ABG HCO3 ABG O2 Saturation ABG Base Excess ABG Hemoglobin ABG Oxyhemoglobin ABG Sodium ABG Potassium ABG Glucose Oxyhemoglobin Carboxyhemoglobin Sodium Potassium Chloride Carbon Dioxide BUN 57 H Creatinine 6.8 H Glucose 131 H POC Glucose 121 H Hemoglobin A1c Calcium Phosphorus Magnesium Lactate Dehydrogenase C-Reactive Protein Total Protein Albumin Triglycerides Arterial Blood Glucose Arterial Blood Ionized Calcium Urine Creatinine Random Vancomycin Coronavirus (PCR) Crossmatch Chest x-ray: pending Allied health notes reviewed: nursing
[2021-03-27] MEDS: CEFEPIME/NS 2 GM/100 ML 2 GM/100 ML BAG IV SCH (15:58)
--- NOTE | 2021-03-27 18:04 | Progress Note ---
Assessment and Plan #Acute kidney injury: dialysis dependent S/p daily HD, now transition to TTS Assess daily for needs for additional sessions Strict input and output Avoid nephrotoxin Renally dose medications Keep MAP > 65 # Hyperkalemia, controlled with HD #Respiratory failure Covid 19 infection currently intubated UF as tolerated with HD, will be limited by hemodynamic instability #Hyperphosphatemia to be monitored Dialysis has been initiated #Hyponatremia: Improved with HD #Overall prognosis remains guarded Subjective Date of service: 03/27/21 Principal diagnosis: Ac hypoxemic resp failure; AE-Asthma; SAI; Crohn's; COVID- 19; Pneumonia Interval history: Remains intubated. Seen during HD. Objective - Exam Narrative Exam: General: NAD HEENT: Oral mucosa moist Neck: Supple, no JVD Chest: Intubated Heart: RRR, S1 and S2, no pericardial rub Abdomen: Soft, nontender, no renal bruit Extremity: No peripheral cyanosis, edema Neurological: Eyes open but not following commands Dermatology: No skin rash Psych: Unable to assess Musculoskeletal: No joint effusion - Vital Signs Vital signs: Vital Signs - 12hr 03/27/21 03/27/21 03/27/21 06:30 07:00 07:18 Temperature 102.4 F H Pulse Rate 117 H 118 H Pulse Rate [ Anterior Bilateral Throughout] Pulse Rate [ From Monitor] Respiratory 30 H 37 H Rate Respiratory Rate [Anterior Bilateral Throughout] Blood Pressure 110/39 109/44 O2 Sat by Pulse 100 100 Oximetry O2 Sat by Pulse Oximetry [ Anterior Bilateral Throughout] 03/27/21 03/27/21 03/27/21 07:30 08:00 08:30 Temperature Pulse Rate 120 H 122 H 118 H Pulse Rate [ 121 H Anterior Bilateral Throughout] Pulse Rate [ From Monitor] Respiratory 28 H 43 H 40 H Rate Respiratory 27 H Rate [Anterior Bilateral Throughout] Blood Pressure 104/40 115/45 109/45 O2 Sat by Pulse 100 100 100 Oximetry O2 Sat by Pulse Oximetry [ Anterior Bilateral Throughout] 03/27/21 03/27/21 03/27/21 08:40 09:00 09:30 Temperature Pulse Rate 120 H 125 H 126 H Pulse Rate [ Anterior Bilateral Throughout] Pulse Rate [ From Monitor] Respiratory 25 H 35 H Rate Respiratory Rate [Anterior Bilateral Throughout] Blood Pressure 115/47 130/44 111/35 O2 Sat by Pulse 96 93 97 Oximetry O2 Sat by Pulse Oximetry [ Anterior Bilateral Throughout] 03/27/21 03/27/21 03/27/21 10:00 10:30 11:00 Temperature Pulse Rate 125 H 124 H 122 H Pulse Rate [ Anterior Bilateral Throughout] Pulse Rate [ From Monitor] Respiratory 32 H 16 17 Rate Respiratory Rate [Anterior Bilateral Throughout] Blood Pressure 114/43 123/42 105/38 O2 Sat by Pulse 100 98 98 Oximetry O2 Sat by Pulse Oximetry [ Anterior Bilateral Throughout] 03/27/21 03/27/21 03/27/21 11:30 12:00 12:22 Temperature Pulse Rate 120 H 121 H 117 H Pulse Rate [ Anterior Bilateral Throughout] Pulse Rate [ 121 H From Monitor] Respiratory 24 26 H Rate Respiratory Rate [Anterior Bilateral Throughout] Blood Pressure 111/41 115/45 102/47 O2 Sat by Pulse 99 99 97 Oximetry O2 Sat by Pulse Oximetry [ Anterior Bilateral Throughout] 03/27/21 03/27/21 03/27/21 12:30 12:40 12:43 Temperature 99.8 F H Pulse Rate 122 H 118 H 118 H Pulse Rate [ Anterior Bilateral Throughout] Pulse Rate [ From Monitor] Respiratory 29 H 14 Rate Respiratory Rate [Anterior Bilateral Throughout] Blood Pressure 97/49 110/45 116/44 O2 Sat by Pulse 99 Oximetry O2 Sat by Pulse 100 Oximetry [ Anterior Bilateral Throughout] 03/27/21 03/27/21 03/27/21 12:47 13:00 13:15 Temperature 100.5 F H Pulse Rate 123 H 117 H Pulse Rate [ Anterior Bilateral Throughout] Pulse Rate [ From Monitor] Respiratory 35 H Rate Respiratory Rate [Anterior Bilateral Throughout] Blood Pressure 112/46 110/42 O2 Sat by Pulse 100 Oximetry O2 Sat by Pulse Oximetry [ Anterior Bilateral Throughout] 03/27/21 03/27/21 03/27/21 13:30 13:45 14:00 Temperature Pulse Rate 114 H 115 H 120 H Pulse Rate [ 121 H Anterior Bilateral Throughout] Pulse Rate [ From Monitor] Respiratory 31 H 34 H Rate Respiratory 27 H Rate [Anterior Bilateral Throughout] Blood Pressure 117/44 116/59 112/60 O2 Sat by Pulse 100 100 Oximetry O2 Sat by Pulse Oximetry [ Anterior Bilateral Throughout] 03/27/21 03/27/21 03/27/21 14:15 14:30 14:45 Temperature Pulse Rate 119 H 124 H 127 H Pulse Rate [ Anterior Bilateral Throughout] Pulse Rate [ From Monitor] Respiratory 22 Rate Respiratory Rate [Anterior Bilateral Throughout] Blood Pressure 104/65 122/63 112/67 O2 Sat by Pulse 100 Oximetry O2 Sat by Pulse Oximetry [ Anterior Bilateral Throughout] 03/27/21 03/27/21 03/27/21 14:55 15:00 15:30 Temperature 99.5 F Pulse Rate 124 H 126 H 125 H Pulse Rate [ Anterior Bilateral Throughout] Pulse Rate [ From Monitor] Respiratory 32 H 33 H 34 H Rate Respiratory Rate [Anterior Bilateral Throughout] Blood Pressure 115/59 124/55 118/55 O2 Sat by Pulse 100 97 Oximetry O2 Sat by Pulse 100 Oximetry [ Anterior Bilateral Throughout] 03/27/21 03/27/21 03/27/21 16:00 16:30 17:00 Temperature Pulse Rate 128 H 125 H 126 H Pulse Rate [ Anterior Bilateral Throughout] Pulse Rate [ 128 H From Monitor] Respiratory 29 H 27 H 31 H Rate Respiratory Rate [Anterior Bilateral Throughout] Blood Pressure 114/45 113/45 114/47 O2 Sat by Pulse 100 100 100 Oximetry O2 Sat by Pulse Oximetry [ Anterior Bilateral Throughout] 03/27/21 03/27/21 17:02 17:55 Temperature 102.9 F H Pulse Rate 121 H Pulse Rate [ Anterior Bilateral Throughout] Pulse Rate [ From Monitor] Respiratory Rate Respiratory Rate [Anterior Bilateral Throughout] Blood Pressure 114/47 O2 Sat by Pulse 100 Oximetry O2 Sat by Pulse Oximetry [ Anterior Bilateral Throughout] - Lab 03/27/21 08:20 03/27/21 08:20 Most recent lab results ABG pH 7.361 (7.320-7.450) 03/27/21 03:20 ABG pCO2 42.1 mm Hg 03/26/21 09:50 ABG pO2 79.9 mm Hg (80.0-90.0) L 03/26/21 09:50 ABG HCO3 23.8 mmol/L (20.0-26.0) 03/26/21 09:50 ABG O2 Saturation 88.9 (0-100) 03/27/21 03:20 Calcium 9.3 mg/dL (8.4-10.2) 03/27/21 08:20 Phosphorus 10.80 mg/dL (2.5-4.5) H 03/23/21 04:30 Magnesium 3.50 mg/dL (1.7-2.3) H 03/23/21 04:30 Urine Creatinine 40.1 mg/dL (0.1-20.0) H 03/14/21 17:50 Urine Sodium 124 mmol/L 03/14/21 17:50 Medications & Allergies - Medications Allergies/Adverse Reactions: Allergies acetaminophen [From Percocet] Adverse Reaction (Verified 03/13/21 12:45) Swelling hydrocodone bitartrate [From Vicodin] Adverse Reaction (Verified 03/13/21 12:45) Swelling oxycodone HCl [From Percocet] Adverse Reaction (Verified 03/13/21 12:45) Swelling Home Medications: Home Medications Medication Instructions Recorded Confirmed Last Taken Type Chlorhexidine Mouthwash [Peridex] 15 ml MM BID #1 bottle 10/11/20 03/13/21 Unknown Rx Clindamycin [Clindamycin CAP] 300 mg PO Q8H #21 cap 10/11/20 03/13/21 Unknown Rx Naproxen 500 mg PO Q12H PRN #12 tablet 10/11/20 03/13/21 Unknown Rx Butalb/Acetamin/Caff 50-325-40 1 - 2 tab PO Q6HR PRN #15 tab 12/05/20 03/13/21 Unknown Rx [Fioricet 50-325-40] Famotidine [Pepcid] 20 mg PO BID #30 tablet 12/05/20 03/13/21 Unknown Rx Ketorolac [Toradol] 10 mg PO Q8H PRN #20 tablet 12/05/20 03/13/21 Unknown Rx Ondansetron [Zofran Odt] 4 mg PO Q6HR PRN #20 tab.rapdis 12/05/20 03/13/21 Unknown Rx Albuterol Sulfate [Proair 90 mcg IH Q4HR PRN #2 [email or web address] 01/01/21 03/13/21 Unknown Rx Respiclick] Mupirocin [Bactroban 2% OINT] 1 applic TP BID 7 Days #1 tube 01/01/21 03/13/21 Unknown Rx Triamcinolone Aceton 0.1% (Nf) 1 applic TP BID 14 Days #1 tube 01/01/21 03/13/21 Unknown Rx [Kenalog (NF)] predniSONE [Deltasone] 40 mg PO QDAY #8 tab 01/01/21 03/13/21 Unknown Rx Active Medications: Generic Name Dose Route Start Last Admin Trade Name Freq PRN Reason Stop Dose Admin Acetaminophen 650 mg 03/13/21 19:30 03/27/21 08:07 Acetaminophen 325 Mg Tab PO 650 mg Q4H PRN Administration Pain MILD(1-3)/Fever >100.5/SALAS Albuterol 2.5 mg 03/19/21 00:53 Albuterol 2.5 Mg/3 Ml Nebu IH Q4HRT PRN Shortness Of Breath Albuterol/Ipratropium 1 ampul 03/19/21 08:00 03/27/21 15:13 Ipratropium/Albuterol Sulfate 3 Ml Ampul.Neb IH 1 ampul Q6HRT INESSA Administration Lipase/Protease/Amylase 1 each 03/15/21 11:42 Lipase 10,500/Protease 25,000/Amylase 43,750 (Units) Dr White FEEDTUBE PRN PRN For Clogged Feeding Tube Ascorbic Acid 500 mg 03/14/21 22:00 03/27/21 09:39 Ascorbic Acid 500 Mg Tab PO 500 mg BID INESSA Administration Bisacodyl 10 mg 03/22/21 22:00 03/26/21 22:46 Bisacodyl 10 Mg Rect Supp CO 10 mg QHS INESSA Administration Ciprofloxacin/Dexamethasone 1 drops 03/24/21 18:00 03/27/21 14:07 Ciprofloxacin/Dexameth Otic Susp 7.5ml TP 03/29/21 17:59 1 drops QID INESSA Administration Dextrose 50 ml 03/14/21 11:02 03/15/21 11:40 Dextrose 50% In Water (25gm) 50 Ml Syringe IV 50 ml Q30MIN PRN Administration Hypoglycemia Protocol Famotidine 10 mg 03/17/21 22:00 03/27/21 09:38 Famotidine 10 Mg Tab PO 10 mg BID INESSA Administration Fentanyl 50 mcg 03/15/21 10:43 Fentanyl 100 Mcg/2 Ml Inj IV Q10MIN PRN ANALGESIA Hydralazine HCl 10 mg 03/15/21 10:10 03/15/21 10:32 Hydralazine 20 Mg/1 Ml Inj IV 10 mg Q4HR PRN Administration Hypertension Hydrophilic Ointment 1 applic 03/14/21 17:50 Lip Therapy Vaseline TP Q2HR PRN Dry Lips Propofol 1,000 mg in 100 mls @ 4.123 mls/hr 03/15/21 11:00 03/27/21 12:59 Diprivan 10 Mg/Ml IV 25 mcg/kg/min TITR INESSA 20.616 mls/hr Administration Protocol 5 MCG/KG/MIN Fentanyl Citrate 2,000 mcg in 100 mls @ 6.872 mls/hr 03/15/21 11:00 03/27/21 16:55 Fentanyl Drip Premix IV 2 mcg/kg/hr TITR INESSA 13.744 mls/hr Administration Protocol 1 MCG/KG/HR Sodium Chloride 500 mls @ 1 mls/hr 03/16/21 17:19 Nacl 0.9% 500 Ml IV DIRECT PRN ARTERIAL LINE FLUSH Vasopressin 20 unit/ Sodium 101 mls @ 9.09 mls/hr 03/21/21 16:00 03/24/21 08:10 Chloride IV 0 units/min TITR INESSA 0 mls/hr Titration Protocol 0.03 UNITS/MIN NORepinephrine/NS 8 MG-250 ML 8 mg in 250 mls @ 3.75 mls/hr 03/23/21 11:00 03/24/21 14:31 Norepinephrine/Ns 8 Mg-250 Ml (Double Conc) IV 0 mcg/min TITRATE INESSA 0 mls/hr Titration Protocol 2 MCG/MIN Sodium Chloride 100 mls @ 999 mls/hr 03/27/21 08:12 Nacl 0.9% IV KARLOS PRN Hypotension Cefepime HCl 2 gm in 100 mls @ 200 mls/hr 03/27/21 16:00 03/27/21 15:58 Cefepime/Ns 2 Gm/100 Ml IV 200 mls/hr Q24H INESSA Administration Protocol Insulin Human Lispro 0 unit 03/14/21 12:00 03/27/21 17:59 Insulin Lispro 100 Unit/Ml SUB-Q Not Given Q6HR [facility] Protocol Lorazepam 1 mg 03/13/21 19:40 03/18/21 14:11 Lorazepam 2 Mg/Ml Vial IV 1 mg Q4H PRN Administration Anxiety Multi-Ingred Cream/Lotion/Oil/Oint 1 applic 03/14/21 17:50 Mineral Oil/Petrolatum, White Ophth Oint 3.5 Gm OU Q4HR PRN Dry Eye(s) Ondansetron HCl 4 mg 10/30/21 19:30 03/21/21 12:05 Ondansetron 4 Mg/2 Ml Inj IV 4 mg Q8H PRN Administration Nausea And Vomiting Senna/Docusate Sodium 1 tab 03/14/21 22:00 03/27/21 09:40 Sennosides/Docusate Sodium 8.6/50 Mg Tab FEEDTUBE Not Given BID INESSA Simple Syrup 15 ml 03/15/21 11:42 Simple Syrup 15 Ml FEEDTUBE PRN PRN Hypoglycemia Simple Syrup 30 ml 03/15/21 11:42 Simple Syrup 15 Ml FEEDTUBE PRN PRN Hypoglycemia Sodium Bicarbonate 325 mg 03/15/21 11:42 03/21/21 17:21 Sodium Bicarbonate 325 Mg Tab FEEDTUBE 325 mg PRN PRN Administration For Clogged Feeding Tube Sodium Chloride 10 ml 03/13/21 22:00 03/27/21 09:41 Sodium Chloride 0.9% 10 Ml Flush Syringe IV 10 ml BID INESSA Administration Sodium Chloride 10 ml 03/13/21 19:30 Sodium Chloride 0.9% 10 Ml Flush Syringe IV PRN PRN LINE FLUSH Zinc Sulfate 220 mg 03/14/21 22:00 03/27/21 09:38 Zinc Sulfate 220 Mg Cap PO 220 mg BID INESSA Administration
[2021-03-28] MEDS: ACETAMINOPHEN 325 MG TAB PO PRN ×2 (00:17→08:17)
[2021-03-28] MEDS: IPRATROPIUM/ALBUTEROL SULFATE 3 ML AMPUL.NEB IH SCH ×4 (02:15→19:27)
[2021-03-28 04:55] LABS: ABG Base Excess 1.1 mmol/L (-2.0-3.0); ABG HCO3 27.1 mmol/L (20.0-26.0); ABG Methemoglobin 0.6 % (0.0-1.5); ABG Oxygen Saturation 88.5 % (95.0-99.0); ABG PCO2 48.9 mm Hg; ABG PH 7.362 pH Units (7.350-7.450); ABG PO2 57.6 mm Hg (80.0-90.0)
[2021-03-28] MEDS: fentaNYL DRIP Premix 2,000 MCG/100 ML BAG IV SCH ×6 (06:25→23:33)
[2021-03-28] MEDS: INSULIN LISPRO 100 UNIT/ML SUB-Q SCH ×4 (06:39→17:34)
[2021-03-28] MEDS: ASCORBIC ACID 500 MG TAB PO SCH ×2 (09:24→21:52)
[2021-03-28] MEDS: FAMOTIDINE 10 MG TAB PO SCH ×2 (09:24→21:52)
[2021-03-28] MEDS: SENNOSIDES/DOCUSATE SODIUM 8.6/50 MG TAB FEEDTUBE SCH ×2 (09:24→21:52)
[2021-03-28] MEDS: ZINC SULFATE 220 MG CAP PO SCH ×2 (09:24→21:52)
[2021-03-28] MEDS: fentaNYL 100 MCG/2 ML INJ IV PRN (09:25)
[2021-03-28] MEDS: CIPROFLOXACIN/DEXAMETH OTIC SUSP 7.5ML TP SCH ×4 (09:35→21:52)
[2021-03-28 09:56] LABS: Basophils % (Auto) 0.2 % (0.0-1.8); Eosinophils # (Auto) 0.6 K/mm3 (0.0-0.4); Eosinophils % (Auto) 3.9 % (0.0-4.3); Hematocrit 24.8 % (30.3-42.9); Hemoglobin 8.2 gm/dl (10.1-14.3); Lymphocytes # (Auto) 1.7 K/mm3 (1.2-5.4); Lymphocytes % (Auto) 10.7 % (13.4-35.0); Mean Corpuscular HGB Conc 33 % (30-34); Mean Corpuscular Volume 85 fl (79-97); Monocytes # (Auto) 0.9 K/mm3 (0.0-0.8); Monocytes % (Auto) 5.2 % (0.0-7.3); Platelet Count 140 K/mm3 (140-440); Red Blood Count 2.92 M/mm3 (3.65-5.03); Red Cell Distribution Width 17.5 % (13.2-15.2)
[2021-03-28 10:16] LABS: Calcium 8.6 mg/dL (8.4-10.2)
[2021-03-28] MEDS: NORepinephrine/NS 8 MG-250 ML 8 MG/250 ML INFUS..BTL IV SCH (10:30)
--- NOTE | 2021-03-28 12:42 | Progress Note ---
Assessment and Plan Assessment and plan: This is a 31-year-old female with history of asthma, morbid obesity, and Crohn's disease who came in complaining of severe wheezing and shortness of breath for the last 4 days that was not relieved by her home nebs and rescue inhalers. Patient was initially admitted to IMCU on bipap but was subsequently intubated due to severe respiratory distress and was unable to protect her aiway. Patient was found to have acute respiratory failure 2/2 to COVID PNA requiring vent support and SAI and transferred to ICU. Hospital Course to Date: 03/14/21- Patient is s/p intubation from this morning, sedated on propofol and fentanyl RASS -3 to -4. ETT above the clavicles advanced by 2cc. Continue nebs and IV steroids per CCM. COVID swab pending. Hyperkalemia improved, X1 dose of kayaxalate ordered. Low BP and low urine output this am, fluid bolus challenge, 500cc of NS bolus given. Continue to monitor electrolytes and renal function, repeat BMP this afternoon. 03/15: Patient's renal function noted to be significantly worse today, patient was hyperkalemic and this was medically treated. Patient initiated on hemodialysis today. Patient disease was consulted today. 03/16: No acute events reported overnight, patient received hemodialysis yesterday. Patient is currently on propofol and fentanyl. 03/17: Patient received hemodialysis today, patient is slightly acidotic on ABG however [facility] is allowing for permissive hypercapnia, tracheal aspirate with Staph aureus and ID is aware. 03/18: Patient is having high residuals today and Reglan was started, patient will receive HD daily per nephrology, correct her change in FiO2 as tolerated. 03/19: HD per nephrology today, antibiotics changed to cefazolin. Patient did not tolerate tube feedings as she had high residuals this morning and they were turned off. Not restarted yet. Updated family at bedside today 03/20: HD today, ddimer noted to be >1000, Tolerating trickle TF. Stat BLE dopplar US 03/21: Patient is not tolerating TF, CXR shows worsening infiltrates, [facility] made changes to vent, TF on hold and started on IVF. 03/22/21- Patient remains intubated and on sedation. Persistent vomiting, TF held overnight, no documented BM, on reglan BR added, Shaun citarte & supp. HD today. Plan to restart TF at 10ml/hr, will reevaluate in the am. Persistent thrombocytopenia, Hep on hold, HIT panel ordered, PO eliquis initiated. 03/23/21- Patient remains on the vent and sedated on propofol and fentanyl RASS - 2 to -3. Possible SAT today as tolerated. Patient tolerated trickle feeds overnight, plan to advance TF by 10cc Q8 to 12hrs. Continue current BR and continue reglan for now. Slightr worsening in acidosis from this am, d/w [facility] vent setting adjusted, will repeat ABG at 9pm. 03/24/21- Patient is on the vent and sedated, on fentanyl and propfol. Bilateral subconjunctival hemorrhage with periorbital edema noted this am, pupils are round and reactive, will Cipro/Dex [id number]. Worsening of kidney function from today's labs, plan for HD per Nephro. 03/25/21- Patient remains intubated and on sedatin, RASS 0 to -1, no longer on pressors. Sudden drop in H&H this am, bilateral subconjunctival hemorrhage with no sig change, no signs of any active bleeding. Patient appears neurologically intact, following commands, pupils are round and reactive with + gag and cough, moved all extremities. D/w [facility] patient is too unstable for CT at this time. Eliquis D/Devaughn, 1unit of PRBC ordered. Will continue to trend CBC. Plan for another section of HD today 03/26/21- Patient remains on the vent and sedated. VENICE reported from overnight. Plan for HD again today. H&H back up and stable, no AC at this time, SCDs for VTE phro. D/w [facility] patient is still too unstable for CT scan, will continue neuro exam and will continue to monitor H&H. 03/27/21- VENICE overnight. remains on the vent and sedated. Red localized rashes noted in patient upper chest and face, will r/o allergic reaction,CBC with auto diff and urine eosinophils ordered. Plan for HD today per Nephro. 03/28/21- Patient remains on the vent and sedated. Persistent fevers overnight unrelieved with antipyretic, currently on a cooling blanket. Back on pressors for hypotension, patient already on IV abx, last blood cultureX2 and sputum culture from 03/23 were negative. Continue IV abx, will reculture patient, orders placed for B.culture and sputum culture. ID is also on consult. will continue F/u on culture and continue to monitor BMP and CBC. Assessment and Plan #Neuro: Sedated - Intubated and sedated on propofol and fentanyl RASS -1 - Titrate sedation for RASS goal 0 to -1 - Daily SAT and SBT per CCM - Avoid benzodiazepine's, reduce the possibility of delirium - Prn analgesia for CPOT greater than 3 - Maintenance of sleep-wake cycle - Bilateral wrist restraints in place for safety #Subconjunctival hemorrhage #Periorbital Edema - Acute swelling/edema with subconjunctival hemorrhage noted this am - No report of possible trauma/injury - pupils are round and reactive, no drainage noted - Patient is sedated on fentanyl and propofol RASS -1 to -2, following commands - Possibly due to elevated venous pressure vs coughing - Cipro/Dex was initiated [id number] - Eliquis D/C - s/p 1unit of PRBCs ordered - Will continue to monitor #CV:Tachycardia #HTN - ST on the monitor - Back on pressors today - Continue blood pressure monitor per protocol - Maintain MAP above 65 - Eliquis on hold - C/f for HIT, HIT panel pending - SCDs for VTE proh #Acute Respiratory Failure #COVID PNA #RUL PNA #Asthma Exacerbation #Bronchospasm- resolved - 03/13 CXR- possible minimal patchy RUL pneumonia - 03/14 CXR- increasing patchy parenchymal opacities bilaterally - C/f for aspiration while patient was on Bipap - Intubated on 03/14 for airway protection - High Peak pressure post intubation--> bronchospasm - COVID swab positive - Vent setting: PRVC- 50%,10,24,450 - AM ABG noted - Vent adjusted by [facility] - [facility] consulted, appreciate recommendations - Continue IV Steroids and Nebs per CCM - VAP bundle addressed - Aspiration precaution HOB above 30 - Daily SBT and SAT trials as tolerated - Daily ABG and CXR - Continue SPO2 monitoring for SPO2 goal above 92% #GI: Projectile Vomitting- resolved - Patient on enteral nutrition - TF now at goal - BM this am - 03/22 BR adjusted, X1 dose of mag citrate and Supp - Continue BR: colace and senokot - Continue Pepcid and reglan - PRN entiemetic for N/V #:Acute Kidney Injury most likely ATN #Hyperkalemia- resolved - Initial cr. was 0.8-- up to 10.8 this am - HD was initiated on 03/15 - Patient is now anuric - Daily HD per Nephro - Continue HD per Nephro - Strict intake and output - Avoid nephrotoxic medications; Renally dose medications - Monitor and replace electrolytes as needed - Nephro on consult #ID:COVID Pneumonia #RUL PNA #Possible aspiration Pneumonia #Leukocytosis - WBCs back up today 16.2 - Persistent fevers overnight, TMAX 102 not relieve with antipyretics - Now on cooling blanket - COVID swab positive - 03/13 BC x2 no growth to date - 03/14 tracheal aspirate with Staph aureus (ID aware) - 03/23 Blood Cuture neg, 03/23 Sputum culture neg - Patient received X1 dose of redemsevir, was D/C due to worsen renal function - Received X1 dose actemra - Continue IV Abx per ID - Trend COVID-19 inflammatory markers - Isolation/droplet precautions - On Vitamin C/vitamin D/zinc - Daily CBC monitor - ID on consult #Endo: Hyperglycemia - Hemoglobin A1c 6.3 - Continue SSI Q6hrs - While critically ill target blood glucose of 140-180 - Avoid hypoglycemia The high probability of a clinically significant, sudden or life threatening deterioration of the [multiple] system(s) required my full and direct attention, intervention and personal management. The aggregate critical care time was [60] minutes. This time is in addition to time spent performing reported procedures but includes the following: [x] Data Review and interpretation [x] Patient assessment and monitoring of vital signs [x] Documentation [x] Medication orders and management Disposition Plan: ICU Total Time Spent with Patient (Minutes): 60 History Interval history: Patient is seen and examined at the bedside. Patient remains on the vent and sedated. RASS 0 to -1, pupils are round and reactive, following simple commands. Patient with persistent fevers overnight that was not relieved with antipyretic, patient is now on a cooling blanket Hospitalist Physical - Constitutional Vitals: Temp Pulse Resp BP Pulse Ox 101.4 F H 119 H 35 H 114/45 100 03/28/21 00:17 03/28/21 11:00 03/28/21 11:00 03/28/21 11:00 03/28/21 11:00 General appearance: Present: no acute distress, well-nourished, obese, other (Intubated and sedated) - EENT Eyes: Present: PERRL ENT: hearing intact - Respiratory Respiratory effort: labored Respiratory: bilateral: wheezing - Cardiovascular Rhythm: regular Heart Sounds: Present: S1 & S2 - Extremities Extremities: no ischemia, pulses intact, pulses symmetrical Extremity abnormal: edema - Peripheral Assessment Generalized Edema Type: Non-pitting Edema Degree: 1+ Capillary Refill: < 3 seconds Skin Temperature: Warm Peripheral Pulses: within normal limits - Abdominal General gastrointestinal: soft, non-tender, normal bowel sounds - Integumentary Integumentary: Present: warm, dry, erythema - Psychiatric Psychiatric: other (Intubated and sedated) - Neurologic Neurologic: other (Intubated and sedated) - Allied Health Allied health notes reviewed: nursing Results - Labs CBC & Chem 7: 03/28/21 09:37 03/28/21 09:37 Labs: Laboratory Last Values WBC 16.3 K/mm3 (4.5-11.0) H 03/28/21 09:37 RBC 2.92 M/mm3 (3.65-5.03) L 03/28/21 09:37 Hgb 8.2 gm/dl (10.1-14.3) L 03/28/21 09:37 Hct 24.8 % (30.3-42.9) L 03/28/21 09:37 MCV 85 fl (79-97) 03/28/21 09:37 MCH 28 pg (28-32) 03/28/21 09:37 MCHC 33 % (30-34) 03/28/21 09:37 RDW 17.5 % (13.2-15.2) H 03/28/21 09:37 Plt Count 140 K/mm3 (140-440) 03/28/21 09:37 Lymph % (Auto) 10.7 % (13.4-35.0) L 03/28/21 09:37 Moore % (Auto) 5.2 % (0.0-7.3) 03/28/21 09:37 Eos % (Auto) 3.9 % (0.0-4.3) 03/28/21 09:37 Baso % (Auto) 0.2 % (0.0-1.8) 03/28/21 09:37 Lymph # (Auto) 1.7 K/mm3 (1.2-5.4) 03/28/21 09:37 Moore # (Auto) 0.9 K/mm3 (0.0-0.8) H 03/28/21 09:37 Eos # (Auto) 0.6 K/mm3 (0.0-0.4) H 03/28/21 09:37 Baso # (Auto) 0.0 K/mm3 (0.0-0.1) 03/28/21 09:37 Seg Neutrophils % 80.0 % (40.0-70.0) H 03/28/21 09:37 Seg Neutrophils # 13.0 K/mm3 (1.8-7.7) H 03/28/21 09:37 PT 15.8 Sec. (12.2-14.9) H 03/22/21 13:40 INR 1.14 (0.87-1.13) H 03/22/21 13:40 APTT 26.8 Sec. (24.2-36.6) 03/22/21 13:40 D-Dimer > 15478 ng/mlDDU (0-234) H 03/22/21 13:40 ABG pH 7.362 pH Units (7.350-7.450) 03/28/21 04:45 POC ABG pCO2 50.0 mmHg (32.0-48.0) H 03/27/21 03:20 ABG pCO2 48.9 mm Hg 03/28/21 04:45 POC ABG pO2 58.3 mmHg (83-108) L 03/27/21 03:20 ABG pO2 57.6 mm Hg (80.0-90.0) L 03/28/21 04:45 POC ABG HCO3 27.7 03/27/21 03:20 ABG HCO3 27.1 mmol/L (20.0-26.0) H 03/28/21 04:45 ABG O2 Saturation 88.5 % (95.0-99.0) L 03/28/21 04:45 ABG O2 Content 15.4 (0.0-44) 03/28/21 04:45 POC ABG Base Excess 1.6 03/27/21 03:20 ABG Base Excess 1.1 mmol/L (-2.0-3.0) 03/28/21 04:45 ABG Hemoglobin 12.7 gm/dl (12.0-16.0) 03/28/21 04:45 ABG Oxyhemoglobin 88.5 (94-98) L 03/27/21 03:20 ABG Carboxyhemoglobin 1.7 % (0.0-5.0) 03/28/21 04:45 ABG Methemoglobin 0.6 % (0.0-1.5) 03/28/21 04:45 ABG Sodium 136.0 mmol/L (136.0-145.0) 03/27/21 03:20 ABG Potassium 3.5 mmol/L (3.40-4.50) 03/27/21 03:20 ABG Chloride 104.0 mmol/L (98-107) 03/27/21 03:20 ABG Glucose 132 mg/dL (65-95) H 03/27/21 03:20 Oxyhemoglobin 86.6 % (95.0-99.0) L 03/28/21 04:45 Carboxyhemoglobin 0.2 (0.5-1.5) L 03/27/21 03:20 FiO2 50 % 03/28/21 04:45 FiO2 % 60.0 03/27/21 03:20 Sodium 139 mmol/L (137-145) 03/28/21 09:37 Potassium 3.7 mmol/L (3.6-5.0) 03/28/21 09:37 Chloride 98.3 mmol/L (98-107) 03/28/21 09:37 Carbon Dioxide 24 mmol/L (22-30) 03/28/21 09:37 Anion Gap 20 mmol/L 03/28/21 09:37 BUN 61 mg/dL (7-17) H 03/28/21 09:37 Creatinine 7.7 mg/dL (0.6-1.2) H 03/28/21 09:37 Estimated GFR 7 ml/min 03/28/21 09:37 BUN/Creatinine Ratio 8 % 03/28/21 09:37 Glucose 148 mg/dL (65-100) H 03/28/21 09:37 POC Glucose 123 mg/dL (70-105) H 03/28/21 11:48 Hemoglobin A1c 6.3 % (4-6) H 03/15/21 05:09 Lactic Acid 2.00 mmol/L (0.7-2.0) 03/14/21 18:47 Calcium 8.6 mg/dL (8.4-10.2) 03/28/21 09:37 Phosphorus 10.80 mg/dL (2.5-4.5) H 03/23/21 04:30 Magnesium 3.50 mg/dL (1.7-2.3) H 03/23/21 04:30 Ferritin 151.6 ng/mL (10.0-200.0) 03/18/21 04:30 Total Bilirubin 0.20 mg/dL (0.1-1.2) 03/17/21 05:23 AST 35 units/L (5-40) 03/17/21 05:23 ALT 24 units/L (7-56) 03/17/21 05:23 Alkaline Phosphatase 78 units/L (35-129) 03/17/21 05:23 Lactate Dehydrogenase 477 units/L (91-180) H 03/18/21 04:30 C-Reactive Protein 9.40 mg/dL (0.00-1.30) H 03/22/21 10:00 Total Protein 6.7 g/dL (6.3-8.2) 03/17/21 05:23 Albumin 3.2 g/dL (3.9-5) L 03/17/21 05:23 Albumin/Globulin Ratio 0.9 % 03/17/21 05:23 Triglycerides 254 mg/dL (2-149) H 03/26/21 05:15 Procalcitonin < 0.05 ng/mL (<0.15) 03/13/21 15:40 HCG, Qual Negative (Negative) 03/13/21 13:26 Arterial Blood Glucose 132 mg/dL (65-95) H 03/27/21 03:20 Arterial Blood Ionized Calcium 4.4 mg/dL (4.6-5.3) L 03/23/21 21:00 Urine Creatinine 40.1 mg/dL (0.1-20.0) H 03/14/21 17:50 Urine Sodium 124 mmol/L 03/14/21 17:50 Random Vancomycin 11.2 ug/mL (0-40.0) 03/20/21 04:23 Coronavirus (PCR) Positive (Negative) A 03/14/21 Unknown Hepatitis A IgM Ab Non-reactive (NonReactive) 03/15/21 05:09 Hep Bs Antigen Nonreactive (Negative) 03/15/21 05:09 Hep B Core IgM Ab Non-reactive (NonReactive) 03/15/21 05:09 Hepatitis C Antibody Non-reactive (NonReactive) 03/15/21 05:09 Blood Type O POSITIVE 03/25/21 13:45 Antibody Screen Negative 03/25/21 13:45 Crossmatch See Detail 03/25/21 13:45 Microbiology: Microbiology 03/23/21 15:34 Peripheral/Venous Blood Culture - Preliminary NO GROWTH AFTER 4 DAYS 03/23/21 15:44 Peripheral/Venous Blood Culture - Preliminary NO GROWTH AFTER 4 DAYS 03/23/21 16:40 Tracheal Aspirate Sputum Culture - Final Bazan/IV: Voiding Method Incontinent Active Medications - Current Medications Current Medications: Generic Name Dose Route Start Last Admin Trade Name Freq PRN Reason Stop Dose Admin Acetaminophen 650 mg 03/13/21 19:30 03/28/21 08:17 Acetaminophen 325 Mg Tab PO 650 mg Q4H PRN Administration Pain MILD(1-3)/Fever >100.5/SALAS Albuterol 2.5 mg 03/19/21 00:53 Albuterol 2.5 Mg/3 Ml Nebu IH Q4HRT PRN Shortness Of Breath Albuterol/Ipratropium 1 ampul 03/19/21 08:00 03/28/21 08:50 Ipratropium/Albuterol Sulfate 3 Ml Ampul.Neb IH Not Given Q6HRT INESSA Lipase/Protease/Amylase 1 each 03/15/21 11:42 Lipase 10,500/Protease 25,000/Amylase 43,750 (Units) Dr White FEEDTUBE PRN PRN For Clogged Feeding Tube Ascorbic Acid 500 mg 03/14/21 22:00 03/28/21 09:24 Ascorbic Acid 500 Mg Tab PO 500 mg BID INESSA Administration Ciprofloxacin/Dexamethasone 1 drops 03/24/21 18:00 03/28/21 09:35 Ciprofloxacin/Dexameth Otic Susp 7.5ml TP 03/29/21 17:59 1 drops QID INESSA Administration Dextrose 50 ml 03/14/21 11:02 03/15/21 11:40 Dextrose 50% In Water (25gm) 50 Ml Syringe IV 50 ml Q30MIN PRN Administration Hypoglycemia Protocol Famotidine 10 mg 03/17/21 22:00 03/28/21 09:24 Famotidine 10 Mg Tab PO 10 mg BID INESSA Administration Fentanyl 50 mcg 03/15/21 10:43 03/28/21 09:25 Fentanyl 100 Mcg/2 Ml Inj IV 50 mcg Q10MIN PRN Administration ANALGESIA Hydralazine HCl 10 mg 03/15/21 10:10 03/15/21 10:32 Hydralazine 20 Mg/1 Ml Inj IV 10 mg Q4HR PRN Administration Hypertension Hydrophilic Ointment 1 applic 03/14/21 17:50 Lip Therapy Vaseline TP Q2HR PRN Dry Lips Propofol 1,000 mg in 100 mls @ 4.123 mls/hr 03/15/21 11:00 03/28/21 12:21 Diprivan 10 Mg/Ml IV 35 mcg/kg/min TITR INESSA 28.862 mls/hr Titration Protocol 5 MCG/KG/MIN Fentanyl Citrate 2,000 mcg in 100 mls @ 6.872 mls/hr 03/15/21 11:00 03/28/21 12:22 Fentanyl Drip Premix IV 2 mcg/kg/hr TITR INESSA 13.744 mls/hr Titration Protocol 1 MCG/KG/HR Sodium Chloride 500 mls @ 1 mls/hr 03/16/21 17:19 Nacl 0.9% 500 Ml IV DIRECT PRN ARTERIAL LINE FLUSH Vasopressin 20 unit/ Sodium 101 mls @ 9.09 mls/hr 03/21/21 16:00 03/24/21 08:10 Chloride IV 0 units/min TITR INESSA 0 mls/hr Titration Protocol 0.03 UNITS/MIN NORepinephrine/NS 8 MG-250 ML 8 mg in 250 mls @ 3.75 mls/hr 03/23/21 11:00 03/28/21 11:45 Norepinephrine/Ns 8 Mg-250 Ml (Double Conc) IV 6 mcg/min TITRATE INESSA 11.25 mls/hr Titration Protocol 2 MCG/MIN Sodium Chloride 100 mls @ 999 mls/hr 03/27/21 08:12 Nacl 0.9% IV KARLOS PRN Hypotension Cefepime HCl 2 gm in 100 mls @ 200 mls/hr 03/27/21 16:00 03/27/21 15:58 Cefepime/Ns 2 Gm/100 Ml IV 200 mls/hr Q24H INESSA Administration Protocol Insulin Human Lispro 0 unit 03/14/21 12:00 03/28/21 11:49 Insulin Lispro 100 Unit/Ml SUB-Q Not Given Q6HR [facility] Protocol Lorazepam 1 mg 03/13/21 19:40 03/18/21 14:11 Lorazepam 2 Mg/Ml Vial IV 1 mg Q4H PRN Administration Anxiety Multi-Ingred Cream/Lotion/Oil/Oint 1 applic 03/14/21 17:50 Mineral Oil/Petrolatum, White Ophth Oint 3.5 Gm OU Q4HR PRN Dry Eye(s) Ondansetron HCl 4 mg 03/13/21 19:30 03/21/21 12:05 Ondansetron 4 Mg/2 Ml Inj IV 4 mg Q8H PRN Administration Nausea And Vomiting Senna/Docusate Sodium 1 tab 03/14/21 22:00 03/28/21 09:24 Sennosides/Docusate Sodium 8.6/50 Mg Tab FEEDTUBE 1 tab BID INESSA Administration Simple Syrup 15 ml 03/15/21 11:42 Simple Syrup 15 Ml FEEDTUBE PRN PRN Hypoglycemia Simple Syrup 30 ml 03/15/21 11:42 Simple Syrup 15 Ml FEEDTUBE PRN PRN Hypoglycemia Sodium Bicarbonate 325 mg 03/15/21 11:42 03/21/21 17:21 Sodium Bicarbonate 325 Mg Tab FEEDTUBE 325 mg PRN PRN Administration For Clogged Feeding Tube Sodium Chloride 10 ml 03/13/21 22:00 03/28/21 09:29 Sodium Chloride 0.9% 10 Ml Flush Syringe IV 10 ml BID INESSA Administration Sodium Chloride 10 ml 03/13/21 19:30 Sodium Chloride 0.9% 10 Ml Flush Syringe IV PRN PRN LINE FLUSH Zinc Sulfate 220 mg 03/14/21 22:00 03/28/21 09:24 Zinc Sulfate 220 Mg Cap PO 220 mg BID INESSA Administration Nutrition/Malnutrition Assess - Dietary Evaluation Nutrition/Malnutrition Findings: Nutrition Notes Start: 03/15/21 11:06 Freq: Status: Active Protocol: Document 03/27/21 10:27 REJI (Rec: 03/27/21 10:33 [facility] [id number]) Nutrition Notes Initial or Follow up Brief Note Subjective/Other Information Spoke with pt's RN via phone at 10:27. Pt tolerating TF at goal rate. Rectal tube remains in place. Percent of energy/protein needs met: 99% energy 73% pro Nutrition Intervention Follow-Up By: 04/02/21 Additional Comments F/U: stable TF, vent status, rectal tube, propofol, wt
--- NOTE | 2021-03-28 14:55 | Progress Note ---
Assessment and Plan Acute hypoxemic respiratory failure Acute asthma exacerbation Morbid obesity Crohn's disease Metabolic acidosis Acute kidney injury Coronavirus infection Pneumonia (CAP) Oropharyngeal dysphagia Obesity, if not mentioned above - reduced TV to 450 mls - repeat ABG at 9 pm - consider resuming VTE prophylaxis in am as no gross bleeding and H&H holding - continue care as below otherwise; - follow HIT assay - nephrology input appreciated; HD/UF for toxin and volume clearance - HD/UF sessions per nephrology prescription - vasopressors for target MAP > 65 mmHg - continue Daily SAT and SBT assessment as tolerated - continue to wean supplemental oxygen for target O2 sat's > 90% acutely - VAP bundle addressed - continue lung protective strategies - continue bronchodilators with pulmonary hygiene per RT - wean per pulmonary driven protocols otherwise - continue accuchecks with glycemic control per SSI (While critically ill target blood glucose of 140-180 mg/dL; avoid hypoglycemia) - sedation prn for target RASS 0 to -1 - avoid nephrotoxins, renally dose all medications - continue to avoid benzodiazepine's, reduce the possibility of delirium - AB's per ID rec's - prn analgesia per CPOT score - Maintenance of sleep-wake cycle, avoid delirium - continue enteral nutritional support at goal rate as tolerated - G.I. & VTE prophylaxis - PT/OT/ROM exercises - continue mobility protocols for pressure ulcer prophylaxis - Monitor hemodynamics closely - continue other care per attending / other consultants - discharge planning ongoing concurrently COVID SPECIFIC INTERVENTIONS - Actemra ordered if available - Remdesivir as per ID/Pulmonary developed protocols (not a candidate) - continue systemic steroids for severe COVID-19 infection empirically - follow repeat COVID tests results - zinc and vitamin C supplementation - Monitor inflammatory markers per facility protocol - ferritin, Ddimer, CRP - therapeutic anticoagulation per system Protocol based on d-dimer and clinical considerations (VTE prophylaxis) - Continue contact and airborne isolation .... Re-evaluate in am & prn CONDITION: CRITICAL PROGNOSIS: GUARDED CODE STATUS: FULL CODE The high probability of a clinically significant, sudden or life-threatening deterioration of the [respiratory, cardiovascular, renal & neurologic] system(s) required my full and direct attention, intervention and personal management. The aggregate critical care time was [35] minutes without overlap. Time includes spent on; [x] Data Review and interpretation [x] Patient assessment and monitoring of vital signs [x] Documentation [x] Medication orders and management Subjective Date of service: 03/28/21 Principal diagnosis: Ac hypoxemic resp failure; AE-Asthma; SAI; Crohn's; COVID- 19; Pneumonia Interval history: Patient is seen today for: Acute hypoxemic respiratory failure; AE-Asthma; SAI; Crohn's disease; COVID-19 infection; Pneumonia (CAP) Seen and examined at bedside; 24hour events reviewed; nursing and respiratory care staff consulted; no adverse overnight events reported to me; resting in bed; remains on MVS; oxygenation improving; no gross bleeding; no emesis or overt aspiration; remains anuric Objective Vital Signs - 12hr 03/28/21 03/28/21 03/28/21 03:00 03:30 03:50 Pulse Rate 120 H 119 H 121 H Pulse Rate [ From Monitor] Respiratory 19 28 H Rate Blood Pressure 123/38 120/48 125/63 O2 Sat by Pulse 100 95 Oximetry 03/28/21 03/28/21 03/28/21 04:00 04:30 05:00 Pulse Rate 118 H 118 H 121 H Pulse Rate [ 120 H From Monitor] Respiratory 23 16 26 H Rate Blood Pressure 100/37 120/39 115/48 O2 Sat by Pulse 100 100 94 Oximetry 03/28/21 03/28/21 03/28/21 05:30 06:00 06:31 Pulse Rate 122 H 120 H 124 H Pulse Rate [ From Monitor] Respiratory 23 30 H 22 Rate Blood Pressure 116/46 115/44 118/40 O2 Sat by Pulse 99 99 100 Oximetry 03/28/21 03/28/21 03/28/21 07:01 07:30 08:00 Pulse Rate 120 H 127 H 131 H Pulse Rate [ 131 H From Monitor] Respiratory 16 28 H 31 H Rate Blood Pressure 102/40 107/45 O2 Sat by Pulse 99 95 90 Oximetry 03/28/21 03/28/21 03/28/21 08:01 08:25 08:31 Pulse Rate 132 H 129 H 133 H Pulse Rate [ From Monitor] Respiratory 39 H 39 H Rate Blood Pressure 125/61 136/49 116/45 O2 Sat by Pulse 88 97 100 Oximetry 03/28/21 03/28/21 03/28/21 09:01 09:25 09:31 Pulse Rate 129 H 128 H Pulse Rate [ From Monitor] Respiratory 48 H 39 H 42 H Rate Blood Pressure 106/32 96/31 O2 Sat by Pulse 97 100 Oximetry 03/28/21 03/28/21 03/28/21 10:00 10:31 11:00 Pulse Rate 123 H 119 H Pulse Rate [ From Monitor] Respiratory 40 H 35 H Rate Blood Pressure 83/32 98/42 114/45 O2 Sat by Pulse 100 100 100 Oximetry 03/28/21 03/28/21 03/28/21 11:30 12:00 12:30 Pulse Rate 118 H 113 H 112 H Pulse Rate [ 116 H From Monitor] Respiratory 28 H 20 40 H Rate Blood Pressure 83/42 117/34 103/40 O2 Sat by Pulse 100 100 100 Oximetry 03/28/21 03/28/21 03/28/21 13:00 13:30 13:40 Pulse Rate 112 H 116 H 117 H Pulse Rate [ From Monitor] Respiratory 46 H 58 H Rate Blood Pressure 113/40 120/50 126/46 O2 Sat by Pulse 100 100 98 Oximetry 03/28/21 14:00 Pulse Rate 118 H Pulse Rate [ From Monitor] Respiratory 29 H Rate Blood Pressure 126/66 O2 Sat by Pulse 99 Oximetry Constitutional: appears uncomfortable, other (morbidly obese female with mild ventilator dyssynchrony) Eyes: non-icteric, other (scleral erythema / bleeding is improving) ENT: oropharynx moist, other (ETT 25 cm BALJINDER) Neck: supple, no lymphadenopathy, no JVD, other (large circumference) Effort: mildly labored Ascultation: Bilateral: diminished breath sounds, rhonchi Percussion: Bilateral: not dull Cardiovascular: regular rate and rhythm Gastrointestinal: normoactive bowel sounds, soft, non-tender, non-distended (protuberant) Integumentary: rash (to upper chest, neck and face), other Extremities: no cyanosis, no edema, pulses normal, no ischemia or petechiae Neurologic: non-focal exam (grossly), pupils equal and round, CN II-XII normal, motor strength normal and, other (moves all extremities spontaneously) Psychiatric: other (unasble to assess) CBC and BMP: 03/29/21 04:45 03/29/21 04:45 ABG, PT/INR, D-dimer: ABG ABG pH 7.362 pH Units (7.350-7.450) 03/28/21 04:45 POC ABG pCO2 50.0 mmHg (32.0-48.0) H 03/27/21 03:20 ABG pCO2 48.9 mm Hg 03/28/21 04:45 POC ABG pO2 58.3 mmHg (83-108) L 03/27/21 03:20 ABG pO2 57.6 mm Hg (80.0-90.0) L 03/28/21 04:45 POC ABG HCO3 27.7 03/27/21 03:20 ABG O2 Saturation 88.5 % (95.0-99.0) L 03/28/21 04:45 PT/INR, D-dimer PT 15.8 Sec. (12.2-14.9) H 03/22/21 13:40 INR 1.14 (0.87-1.13) H 03/22/21 13:40 D-Dimer > 31074 ng/mlDDU (0-234) H 03/22/21 13:40 Abnormal lab findings: Abnormal Labs 03/13/21 03/13/21 03/13/21 13:26 13:26 15:40 WBC RBC Hgb Hct MCH 27 L RDW 17.0 H Plt Count Lymph % (Auto) Mccone # (Auto) Eos # (Auto) Seg Neutrophils % Seg Neutrophils # PT INR D-Dimer ABG pH POC ABG pCO2 POC ABG pO2 ABG pO2 ABG HCO3 ABG O2 Saturation ABG Base Excess ABG Hemoglobin ABG Oxyhemoglobin ABG Sodium ABG Potassium ABG Glucose Oxyhemoglobin Carboxyhemoglobin Sodium 136 L Potassium Chloride Carbon Dioxide BUN Creatinine Glucose 125 H 130 H POC Glucose Hemoglobin A1c Calcium Phosphorus Magnesium Lactate Dehydrogenase 235 H C-Reactive Protein 4.30 H Total Protein Albumin Triglycerides Arterial Blood Glucose Arterial Blood Ionized Calcium Urine Creatinine Random Vancomycin Coronavirus (PCR) Crossmatch 03/13/21 03/14/21 03/14/21 21:33 03:35 06:21 WBC 20.0 H RBC Hgb Hct MCH 27 L RDW 17.5 H Plt Count Lymph % (Auto) 7.8 L Mccone # (Auto) 1.3 H Eos # (Auto) Seg Neutrophils % 85.4 H Seg Neutrophils # 17.1 H PT INR D-Dimer ABG pH 7.323 L 7.234 L POC ABG pCO2 POC ABG pO2 ABG pO2 69.8 L ABG HCO3 ABG O2 Saturation 92.9 L 94.9 L ABG Base Excess -3.3 L -5.4 L ABG Hemoglobin ABG Oxyhemoglobin ABG Sodium ABG Potassium ABG Glucose Oxyhemoglobin 91.2 L 93.2 L Carboxyhemoglobin Sodium Potassium Chloride Carbon Dioxide BUN Creatinine Glucose POC Glucose Hemoglobin A1c Calcium Phosphorus Magnesium Lactate Dehydrogenase C-Reactive Protein Total Protein Albumin Triglycerides Arterial Blood Glucose Arterial Blood Ionized Calcium Urine Creatinine Random Vancomycin Coronavirus (PCR) Crossmatch 03/14/21 03/14/21 03/14/21 06:21 07:47 11:21 WBC RBC Hgb Hct MCH RDW Plt Count Lymph % (Auto) Mccone # (Auto) Eos # (Auto) Seg Neutrophils % Seg Neutrophils # PT INR D-Dimer ABG pH POC ABG pCO2 POC ABG pO2 ABG pO2 ABG HCO3 ABG O2 Saturation ABG Base Excess ABG Hemoglobin ABG Oxyhemoglobin ABG Sodium ABG Potassium ABG Glucose Oxyhemoglobin Carboxyhemoglobin Sodium 136 L 136 L Potassium 6.2 H* D 5.4 H Chloride Carbon Dioxide 21 L 21 L BUN Creatinine 1.5 H D 1.8 H Glucose 144 H 141 H POC Glucose 147 H Hemoglobin A1c Calcium Phosphorus Magnesium Lactate Dehydrogenase C-Reactive Protein Total Protein 8.7 H 9.2 H Albumin 3.8 L Triglycerides Arterial Blood Glucose Arterial Blood Ionized Calcium Urine Creatinine Random Vancomycin Coronavirus (PCR) Crossmatch 03/14/21 03/14/21 03/14/21 17:29 17:50 18:35 WBC RBC Hgb Hct MCH RDW Plt Count Lymph % (Auto) Mccone # (Auto) Eos # (Auto) Seg Neutrophils % Seg Neutrophils # PT INR D-Dimer ABG pH POC ABG pCO2 POC ABG pO2 ABG pO2 ABG HCO3 ABG O2 Saturation ABG Base Excess ABG Hemoglobin ABG Oxyhemoglobin ABG Sodium ABG Potassium ABG Glucose Oxyhemoglobin Carboxyhemoglobin Sodium 135 L Potassium 6.4 H* Chloride Carbon Dioxide 15 L BUN 26 H Creatinine 3.4 H D Glucose 165 H POC Glucose 209 H Hemoglobin A1c Calcium Phosphorus Magnesium Lactate Dehydrogenase C-Reactive Protein Total Protein Albumin Triglycerides Arterial Blood Glucose Arterial Blood Ionized Calcium Urine Creatinine 40.1 H Random Vancomycin Coronavirus (PCR) Crossmatch 03/14/21 03/14/21 03/14/21 18:46 22:23 23:52 WBC RBC Hgb Hct MCH RDW Plt Count Lymph % (Auto) Mccone # (Auto) Eos # (Auto) Seg Neutrophils % Seg Neutrophils # PT INR D-Dimer ABG pH 7.270 L POC ABG pCO2 POC ABG pO2 63.4 L ABG pO2 ABG HCO3 ABG O2 Saturation ABG Base Excess ABG Hemoglobin ABG Oxyhemoglobin 90.2 L ABG Sodium 134.9 L ABG Potassium 5.3 H ABG Glucose 134 H Oxyhemoglobin Carboxyhemoglobin Sodium 136 L Potassium 5.2 H Chloride Carbon Dioxide 20 L BUN 29 H Creatinine 3.6 H Glucose 236 H POC Glucose 128 H Hemoglobin A1c Calcium Phosphorus Magnesium Lactate Dehydrogenase C-Reactive Protein Total Protein Albumin 3.2 L Triglycerides Arterial Blood Glucose 134 H Arterial Blood Ionized Calcium Urine Creatinine Random Vancomycin Coronavirus (PCR) Crossmatch 03/14/21 03/15/21 03/15/21 Unknown 05:00 05:09 WBC 22.5 H RBC Hgb Hct MCH 27 L RDW 17.6 H Plt Count Lymph % (Auto) Mccone # (Auto) Eos # (Auto) Seg Neutrophils % Seg Neutrophils # PT INR D-Dimer ABG pH POC ABG pCO2 POC ABG pO2 ABG pO2 ABG HCO3 ABG O2 Saturation ABG Base Excess ABG Hemoglobin ABG Oxyhemoglobin ABG Sodium ABG Potassium ABG Glucose Oxyhemoglobin Carboxyhemoglobin Sodium Potassium Chloride Carbon Dioxide BUN Creatinine Glucose POC Glucose 116 H Hemoglobin A1c Calcium Phosphorus Magnesium Lactate Dehydrogenase C-Reactive Protein Total Protein Albumin Triglycerides Arterial Blood Glucose Arterial Blood Ionized Calcium Urine Creatinine Random Vancomycin Coronavirus (PCR) Positive A Crossmatch 03/15/21 03/15/21 03/15/21 05:09 05:09 05:09 WBC RBC Hgb Hct MCH RDW Plt Count Lymph % (Auto) Mccone # (Auto) Eos # (Auto) Seg Neutrophils % Seg Neutrophils # PT INR D-Dimer ABG pH POC ABG pCO2 POC ABG pO2 ABG pO2 ABG HCO3 ABG O2 Saturation ABG Base Excess ABG Hemoglobin ABG Oxyhemoglobin ABG Sodium ABG Potassium ABG Glucose Oxyhemoglobin Carboxyhemoglobin Sodium 136 L Potassium 6.5 H* D Chloride Carbon Dioxide 17 L BUN 41 H Creatinine 5.3 H Glucose 128 H POC Glucose Hemoglobin A1c 6.3 H Calcium Phosphorus Magnesium Lactate Dehydrogenase C-Reactive Protein 12.10 H Total Protein Albumin 3.1 L Triglycerides Arterial Blood Glucose Arterial Blood Ionized Calcium Urine Creatinine Random Vancomycin Coronavirus (PCR) Crossmatch 03/15/21 03/15/21 03/15/21 10:00 21:50 23:39 WBC RBC Hgb Hct MCH RDW Plt Count Lymph % (Auto) Mccone # (Auto) Eos # (Auto) Seg Neutrophils % Seg Neutrophils # PT INR D-Dimer ABG pH 7.098 L POC ABG pCO2 72.7 H POC ABG pO2 ABG pO2 162.5 H ABG HCO3 ABG O2 Saturation ABG Base Excess ABG Hemoglobin 10.1 L ABG Oxyhemoglobin ABG Sodium ABG Potassium 5.7 H ABG Glucose Oxyhemoglobin Carboxyhemoglobin 0.4 L Sodium Potassium Chloride Carbon Dioxide BUN Creatinine Glucose POC Glucose 156 H Hemoglobin A1c Calcium Phosphorus Magnesium Lactate Dehydrogenase C-Reactive Protein Total Protein Albumin Triglycerides Arterial Blood Glucose Arterial Blood Ionized Calcium Urine Creatinine Random Vancomycin Coronavirus (PCR) Crossmatch 03/16/21 03/16/21 03/16/21 05:00 05:30 05:30 WBC 16.7 H RBC 3.59 L Hgb 9.6 L Hct 30.1 L MCH 27 L RDW 17.5 H Plt Count Lymph % (Auto) Mccone # (Auto) Eos # (Auto) Seg Neutrophils % Seg Neutrophils # PT INR D-Dimer ABG pH POC ABG pCO2 POC ABG pO2 ABG pO2 ABG HCO3 ABG O2 Saturation ABG Base Excess ABG Hemoglobin ABG Oxyhemoglobin ABG Sodium ABG Potassium ABG Glucose Oxyhemoglobin Carboxyhemoglobin Sodium Potassium Chloride Carbon Dioxide BUN 46 H Creatinine 6.2 H Glucose 131 H POC Glucose Hemoglobin A1c Calcium Phosphorus 6.00 H D Magnesium Lactate Dehydrogenase 318 H C-Reactive Protein 18.60 H Total Protein Albumin 3.0 L Triglycerides Arterial Blood Glucose Arterial Blood Ionized Calcium Urine Creatinine Random Vancomycin Coronavirus (PCR) Crossmatch 03/16/21 03/16/21 03/16/21 05:51 06:37 08:58 WBC RBC Hgb Hct MCH RDW Plt Count Lymph % (Auto) Mccone # (Auto) Eos # (Auto) Seg Neutrophils % Seg Neutrophils # PT INR D-Dimer 3041.12 H ABG pH POC ABG pCO2 POC ABG pO2 ABG pO2 141.5 H ABG HCO3 ABG O2 Saturation ABG Base Excess ABG Hemoglobin 9.7 L ABG Oxyhemoglobin ABG Sodium ABG Potassium ABG Glucose Oxyhemoglobin Carboxyhemoglobin Sodium Potassium Chloride Carbon Dioxide BUN Creatinine Glucose POC Glucose 126 H Hemoglobin A1c Calcium Phosphorus Magnesium Lactate Dehydrogenase C-Reactive Protein Total Protein Albumin Triglycerides Arterial Blood Glucose Arterial Blood Ionized Calcium Urine Creatinine Random Vancomycin Coronavirus (PCR) Crossmatch 03/16/21 03/16/21 03/16/21 12:11 16:51 21:00 WBC RBC Hgb Hct MCH RDW Plt Count Lymph % (Auto) Mccone # (Auto) Eos # (Auto) Seg Neutrophils % Seg Neutrophils # PT INR D-Dimer ABG pH 7.239 L POC ABG pCO2 61.5 H POC ABG pO2 80.8 L ABG pO2 ABG HCO3 ABG O2 Saturation ABG Base Excess ABG Hemoglobin 11.4 L ABG Oxyhemoglobin 93.5 L ABG Sodium ABG Potassium 5.4 H ABG Glucose 137 H Oxyhemoglobin Carboxyhemoglobin 0.2 L Sodium Potassium Chloride Carbon Dioxide BUN Creatinine Glucose POC Glucose 156 H 133 H Hemoglobin A1c Calcium Phosphorus Magnesium Lactate Dehydrogenase C-Reactive Protein Total Protein Albumin Triglycerides Arterial Blood Glucose 137 H Arterial Blood Ionized Calcium Urine Creatinine Random Vancomycin Coronavirus (PCR) Crossmatch 03/16/21 03/17/21 03/17/21 23:42 05:23 05:23 WBC 18.4 H RBC Hgb Hct MCH 27 L RDW 17.4 H Plt Count Lymph % (Auto) Mccone # (Auto) Eos # (Auto) Seg Neutrophils % Seg Neutrophils # PT INR D-Dimer ABG pH POC ABG pCO2 POC ABG pO2 ABG pO2 ABG HCO3 ABG O2 Saturation ABG Base Excess ABG Hemoglobin ABG Oxyhemoglobin ABG Sodium ABG Potassium ABG Glucose Oxyhemoglobin Carboxyhemoglobin Sodium Potassium 5.2 H Chloride Carbon Dioxide 21 L BUN 79 H Creatinine 8.6 H Glucose 124 H POC Glucose 133 H Hemoglobin A1c Calcium Phosphorus Magnesium Lactate Dehydrogenase C-Reactive Protein Total Protein Albumin 3.2 L Triglycerides 285 H Arterial Blood Glucose Arterial Blood Ionized Calcium Urine Creatinine Random Vancomycin Coronavirus (PCR) Crossmatch 03/17/21 03/17/21 03/17/21 05:23 10:48 12:20 WBC RBC Hgb Hct MCH RDW Plt Count Lymph % (Auto) Mccone # (Auto) Eos # (Auto) Seg Neutrophils % Seg Neutrophils # PT INR D-Dimer ABG pH 7.294 L POC ABG pCO2 POC ABG pO2 ABG pO2 90.3 H ABG HCO3 ABG O2 Saturation ABG Base Excess ABG Hemoglobin 9.9 L ABG Oxyhemoglobin ABG Sodium ABG Potassium ABG Glucose Oxyhemoglobin Carboxyhemoglobin Sodium Potassium 5.2 H Chloride Carbon Dioxide 21 L BUN 79 H Creatinine 8.4 H Glucose 125 H POC Glucose 171 H Hemoglobin A1c Calcium Phosphorus 9.90 H D Magnesium 2.40 H Lactate Dehydrogenase C-Reactive Protein Total Protein Albumin Triglycerides Arterial Blood Glucose Arterial Blood Ionized Calcium Urine Creatinine Random Vancomycin Coronavirus (PCR) Crossmatch 03/17/21 03/17/21 03/18/21 17:24 21:00 04:30 WBC RBC Hgb Hct MCH RDW Plt Count Lymph % (Auto) Mccone # (Auto) Eos # (Auto) Seg Neutrophils % Seg Neutrophils # PT INR D-Dimer 9953.09 H ABG pH 7.310 L POC ABG pCO2 54.5 H POC ABG pO2 62.3 L ABG pO2 ABG HCO3 ABG O2 Saturation ABG Base Excess ABG Hemoglobin 10.2 L ABG Oxyhemoglobin 88.6 L ABG Sodium ABG Potassium 4.7 H ABG Glucose 99 H Oxyhemoglobin Carboxyhemoglobin 0.3 L Sodium Potassium Chloride Carbon Dioxide BUN Creatinine Glucose POC Glucose 121 H Hemoglobin A1c Calcium Phosphorus Magnesium Lactate Dehydrogenase C-Reactive Protein Total Protein Albumin Triglycerides Arterial Blood Glucose 99 H Arterial Blood Ionized Calcium 4.3 L Urine Creatinine Random Vancomycin Coronavirus (PCR) Crossmatch 03/18/21 03/18/21 03/18/21 04:30 04:30 11:34 WBC 12.8 H RBC 3.49 L Hgb 9.4 L Hct 29.3 L MCH 27 L RDW 17.4 H Plt Count Lymph % (Auto) Mccone # (Auto) Eos # (Auto) Seg Neutrophils % Seg Neutrophils # PT INR D-Dimer ABG pH POC ABG pCO2 POC ABG pO2 ABG pO2 ABG HCO3 ABG O2 Saturation ABG Base Excess ABG Hemoglobin ABG Oxyhemoglobin ABG Sodium ABG Potassium ABG Glucose Oxyhemoglobin Carboxyhemoglobin Sodium Potassium Chloride Carbon Dioxide BUN 69 H Creatinine 7.3 H Glucose POC Glucose 114 H Hemoglobin A1c Calcium 8.2 L Phosphorus 7.60 H D Magnesium Lactate Dehydrogenase 477 H C-Reactive Protein 6.90 H Total Protein Albumin Triglycerides Arterial Blood Glucose Arterial Blood Ionized Calcium Urine Creatinine Random Vancomycin Coronavirus (PCR) Crossmatch 03/18/21 03/19/21 03/19/21 21:44 04:13 04:13 WBC 13.7 H RBC 3.32 L Hgb 9.0 L Hct 28.1 L MCH 27 L RDW 16.9 H Plt Count Lymph % (Auto) Mccone # (Auto) Eos # (Auto) Seg Neutrophils % Seg Neutrophils # PT INR D-Dimer ABG pH 7.290 L POC ABG pCO2 POC ABG pO2 ABG pO2 119.7 H ABG HCO3 28.0 H ABG O2 Saturation ABG Base Excess ABG Hemoglobin 9.6 L ABG Oxyhemoglobin ABG Sodium ABG Potassium ABG Glucose Oxyhemoglobin Carboxyhemoglobin Sodium Potassium Chloride Carbon Dioxide BUN Creatinine Glucose POC Glucose Hemoglobin A1c Calcium Phosphorus Magnesium Lactate Dehydrogenase C-Reactive Protein Total Protein Albumin Triglycerides Arterial Blood Glucose Arterial Blood Ionized Calcium Urine Creatinine Random Vancomycin 43.5 H Coronavirus (PCR) Crossmatch 03/19/21 03/19/21 03/19/21 04:13 05:59 11:40 WBC RBC Hgb Hct MCH RDW Plt Count Lymph % (Auto) Mccone # (Auto) Eos # (Auto) Seg Neutrophils % Seg Neutrophils # PT INR D-Dimer ABG pH POC ABG pCO2 POC ABG pO2 ABG pO2 ABG HCO3 ABG O2 Saturation ABG Base Excess ABG Hemoglobin ABG Oxyhemoglobin ABG Sodium ABG Potassium ABG Glucose Oxyhemoglobin Carboxyhemoglobin Sodium Potassium Chloride Carbon Dioxide BUN 55 H Creatinine 7.0 H Glucose POC Glucose 116 H 145 H Hemoglobin A1c Calcium 8.1 L Phosphorus 7.90 H Magnesium Lactate Dehydrogenase C-Reactive Protein Total Protein Albumin Triglycerides Arterial Blood Glucose Arterial Blood Ionized Calcium Urine Creatinine Random Vancomycin Coronavirus (PCR) Crossmatch 03/19/21 03/19/21 03/20/21 17:01 23:41 04:00 WBC 15.6 H RBC 3.55 L Hgb 9.6 L Hct MCH 27 L RDW 16.8 H Plt Count 139 L Lymph % (Auto) Mccone # (Auto) Eos # (Auto) Seg Neutrophils % Seg Neutrophils # PT INR D-Dimer ABG pH POC ABG pCO2 POC ABG pO2 ABG pO2 ABG HCO3 ABG O2 Saturation ABG Base Excess ABG Hemoglobin ABG Oxyhemoglobin ABG Sodium ABG Potassium ABG Glucose Oxyhemoglobin Carboxyhemoglobin Sodium Potassium Chloride Carbon Dioxide BUN Creatinine Glucose POC Glucose 111 H 118 H Hemoglobin A1c Calcium Phosphorus Magnesium Lactate Dehydrogenase C-Reactive Protein Total Protein Albumin Triglycerides Arterial Blood Glucose Arterial Blood Ionized Calcium Urine Creatinine Random Vancomycin Coronavirus (PCR) Crossmatch 03/20/21 03/20/21 03/20/21 04:00 04:00 04:37 WBC RBC Hgb Hct MCH RDW Plt Count Lymph % (Auto) Mccone # (Auto) Eos # (Auto) Seg Neutrophils % Seg Neutrophils # PT INR D-Dimer > 26991 H ABG pH 7.306 L POC ABG pCO2 POC ABG pO2 ABG pO2 ABG HCO3 27.9 H ABG O2 Saturation ABG Base Excess ABG Hemoglobin 5.2 L ABG Oxyhemoglobin ABG Sodium ABG Potassium ABG Glucose Oxyhemoglobin Carboxyhemoglobin Sodium Potassium 5.2 H Chloride 97.6 L Carbon Dioxide BUN 52 H Creatinine 6.2 H Glucose 104 H POC Glucose Hemoglobin A1c Calcium Phosphorus 8.60 H Magnesium Lactate Dehydrogenase C-Reactive Protein 6.90 H Total Protein Albumin Triglycerides Arterial Blood Glucose Arterial Blood Ionized Calcium Urine Creatinine Random Vancomycin Coronavirus (PCR) Crossmatch 03/20/21 03/20/21 03/20/21 13:50 17:46 17:56 WBC RBC Hgb Hct MCH RDW Plt Count Lymph % (Auto) Mccone # (Auto) Eos # (Auto) Seg Neutrophils % Seg Neutrophils # PT INR D-Dimer ABG pH POC ABG pCO2 POC ABG pO2 ABG pO2 ABG HCO3 ABG O2 Saturation ABG Base Excess ABG Hemoglobin ABG Oxyhemoglobin ABG Sodium ABG Potassium ABG Glucose Oxyhemoglobin Carboxyhemoglobin Sodium Potassium Chloride Carbon Dioxide BUN 63 H 43 H Creatinine Glucose POC Glucose 145 H Hemoglobin A1c Calcium Phosphorus Magnesium Lactate Dehydrogenase C-Reactive Protein Total Protein Albumin Triglycerides Arterial Blood Glucose Arterial Blood Ionized Calcium Urine Creatinine Random Vancomycin Coronavirus (PCR) Crossmatch 03/20/21 03/21/21 03/21/21 23:18 06:58 06:58 WBC 14.4 H RBC 3.41 L Hgb 9.5 L Hct 28.6 L MCH RDW 17.4 H Plt Count 107 L Lymph % (Auto) Mccone # (Auto) Eos # (Auto) Seg Neutrophils % Seg Neutrophils # PT INR D-Dimer ABG pH POC ABG pCO2 POC ABG pO2 ABG pO2 ABG HCO3 ABG O2 Saturation ABG Base Excess ABG Hemoglobin ABG Oxyhemoglobin ABG Sodium ABG Potassium ABG Glucose Oxyhemoglobin Carboxyhemoglobin Sodium Potassium Chloride Carbon Dioxide BUN 60 H Creatinine 7.7 H Glucose POC Glucose 106 H Hemoglobin A1c Calcium Phosphorus Magnesium Lactate Dehydrogenase C-Reactive Protein Total Protein Albumin Triglycerides Arterial Blood Glucose Arterial Blood Ionized Calcium Urine Creatinine Random Vancomycin Coronavirus (PCR) Crossmatch 03/21/21 03/21/21 03/21/21 11:11 18:04 Unknown WBC RBC Hgb Hct MCH RDW Plt Count Lymph % (Auto) Mccone # (Auto) Eos # (Auto) Seg Neutrophils % Seg Neutrophils # PT INR D-Dimer ABG pH 7.270 L POC ABG pCO2 58.7 H POC ABG pO2 76.9 L ABG pO2 ABG HCO3 ABG O2 Saturation ABG Base Excess ABG Hemoglobin 9.9 L ABG Oxyhemoglobin 92.4 L ABG Sodium 135.8 L ABG Potassium 4.6 H ABG Glucose Oxyhemoglobin Carboxyhemoglobin 0.1 L Sodium Potassium Chloride Carbon Dioxide BUN Creatinine Glucose POC Glucose 109 H 141 H Hemoglobin A1c Calcium Phosphorus Magnesium Lactate Dehydrogenase C-Reactive Protein Total Protein Albumin Triglycerides Arterial Blood Glucose Arterial Blood Ionized Calcium 4.5 L Urine Creatinine Random Vancomycin Coronavirus (PCR) Crossmatch 03/22/21 03/22/21 03/22/21 03:09 07:10 10:00 WBC RBC Hgb Hct MCH RDW Plt Count Lymph % (Auto) Mccone # (Auto) Eos # (Auto) Seg Neutrophils % Seg Neutrophils # PT INR D-Dimer ABG pH 7.206 L 7.245 L POC ABG pCO2 55.6 H POC ABG pO2 ABG pO2 90.6 H ABG HCO3 ABG O2 Saturation ABG Base Excess -4.4 L ABG Hemoglobin 9.0 L 8.4 L ABG Oxyhemoglobin ABG Sodium 123.4 L ABG Potassium 5.6 H ABG Glucose 106 H Oxyhemoglobin 94.5 L Carboxyhemoglobin 0.1 L Sodium Potassium 5.4 H Chloride 96.8 L Carbon Dioxide BUN 89 H Creatinine 8.7 H Glucose 131 H POC Glucose Hemoglobin A1c Calcium Phosphorus Magnesium Lactate Dehydrogenase C-Reactive Protein 9.40 H Total Protein Albumin Triglycerides Arterial Blood Glucose 106 H Arterial Blood Ionized Calcium Urine Creatinine Random Vancomycin Coronavirus (PCR) Crossmatch 11/01/0203/22/21 03/22/21 10:00 12:37 13:19 WBC RBC 3.05 L Hgb 8.4 L Hct 25.5 L MCH RDW 17.5 H Plt Count 108 L Lymph % (Auto) Mccone # (Auto) Eos # (Auto) Seg Neutrophils % Seg Neutrophils # PT INR D-Dimer ABG pH POC ABG pCO2 POC ABG pO2 ABG pO2 ABG HCO3 ABG O2 Saturation ABG Base Excess ABG Hemoglobin ABG Oxyhemoglobin ABG Sodium ABG Potassium ABG Glucose Oxyhemoglobin Carboxyhemoglobin Sodium Potassium Chloride Carbon Dioxide BUN Creatinine 8.7 H Glucose POC Glucose 140 H Hemoglobin A1c Calcium Phosphorus Magnesium Lactate Dehydrogenase C-Reactive Protein Total Protein Albumin Triglycerides Arterial Blood Glucose Arterial Blood Ionized Calcium Urine Creatinine Random Vancomycin Coronavirus (PCR) Crossmatch 03/22/21 03/22/21 03/22/21 13:40 17:14 18:21 WBC RBC Hgb Hct MCH RDW Plt Count Lymph % (Auto) Mccone # (Auto) Eos # (Auto) Seg Neutrophils % Seg Neutrophils # PT 15.8 H INR 1.14 H D-Dimer > 88032 H ABG pH POC ABG pCO2 POC ABG pO2 ABG pO2 ABG HCO3 ABG O2 Saturation ABG Base Excess ABG Hemoglobin ABG Oxyhemoglobin ABG Sodium ABG Potassium ABG Glucose Oxyhemoglobin Carboxyhemoglobin Sodium Potassium Chloride Carbon Dioxide BUN Creatinine Glucose POC Glucose 117 H 112 H Hemoglobin A1c Calcium Phosphorus Magnesium Lactate Dehydrogenase C-Reactive Protein Total Protein Albumin Triglycerides Arterial Blood Glucose Arterial Blood Ionized Calcium Urine Creatinine Random Vancomycin Coronavirus (PCR) Crossmatch 03/22/21 03/22/21 03/23/21 21:25 22:57 04:30 WBC RBC Hgb Hct MCH RDW Plt Count Lymph % (Auto) Mccone # (Auto) Eos # (Auto) Seg Neutrophils % Seg Neutrophils # PT INR D-Dimer ABG pH 7.188 L* POC ABG pCO2 POC ABG pO2 ABG pO2 97.9 H ABG HCO3 ABG O2 Saturation ABG Base Excess -3.7 L ABG Hemoglobin 9.2 L ABG Oxyhemoglobin ABG Sodium ABG Potassium ABG Glucose Oxyhemoglobin 94.4 L Carboxyhemoglobin Sodium Potassium Chloride Carbon Dioxide BUN Creatinine Glucose POC Glucose 106 H Hemoglobin A1c Calcium Phosphorus Magnesium Lactate Dehydrogenase C-Reactive Protein Total Protein Albumin Triglycerides 381 H Arterial Blood Glucose Arterial Blood Ionized Calcium Urine Creatinine Random Vancomycin Coronavirus (PCR) Crossmatch 03/23/21 03/23/21 03/23/21 04:30 04:30 05:37 WBC 20.1 H RBC 3.17 L Hgb 8.6 L Hct 27.2 L MCH 27 L RDW 17.4 H Plt Count 118 L Lymph % (Auto) Mccone # (Auto) Eos # (Auto) Seg Neutrophils % Seg Neutrophils # PT INR D-Dimer ABG pH POC ABG pCO2 POC ABG pO2 ABG pO2 ABG HCO3 ABG O2 Saturation ABG Base Excess ABG Hemoglobin ABG Oxyhemoglobin ABG Sodium ABG Potassium ABG Glucose Oxyhemoglobin Carboxyhemoglobin Sodium Potassium 5.2 H Chloride 97.1 L Carbon Dioxide 21 L BUN 82 H Creatinine 9.1 H Glucose 109 H POC Glucose 130 H Hemoglobin A1c Calcium Phosphorus 10.80 H Magnesium 3.50 H Lactate Dehydrogenase C-Reactive Protein Total Protein Albumin Triglycerides Arterial Blood Glucose Arterial Blood Ionized Calcium Urine Creatinine Random Vancomycin Coronavirus (PCR) Crossmatch 03/23/21 03/23/21 03/23/21 08:44 11:30 16:09 WBC RBC Hgb Hct MCH RDW Plt Count Lymph % (Auto) Mccone # (Auto) Eos # (Auto) Seg Neutrophils % Seg Neutrophils # PT INR D-Dimer ABG pH 7.190 L POC ABG pCO2 57.9 H POC ABG pO2 79.2 L ABG pO2 ABG HCO3 ABG O2 Saturation ABG Base Excess ABG Hemoglobin 11.8 L ABG Oxyhemoglobin 92.3 L ABG Sodium 131.0 L ABG Potassium 5.0 H ABG Glucose 122 H Oxyhemoglobin Carboxyhemoglobin 0.4 L Sodium Potassium Chloride Carbon Dioxide BUN Creatinine Glucose POC Glucose 129 H 148 H Hemoglobin A1c Calcium Phosphorus Magnesium Lactate Dehydrogenase C-Reactive Protein Total Protein Albumin Triglycerides Arterial Blood Glucose 122 H Arterial Blood Ionized Calcium 4.4 L Urine Creatinine Random Vancomycin Coronavirus (PCR) Crossmatch 03/23/21 03/24/21 03/24/21 21:00 03:35 04:00 WBC 17.8 H RBC 2.96 L Hgb 8.1 L Hct 25.0 L MCH 27 L RDW 17.7 H Plt Count 124 L Lymph % (Auto) Mccone # (Auto) Eos # (Auto) Seg Neutrophils % Seg Neutrophils # PT INR D-Dimer ABG pH 7.223 L POC ABG pCO2 50.3 H POC ABG pO2 114.4 H ABG pO2 ABG HCO3 ABG O2 Saturation ABG Base Excess ABG Hemoglobin 8.8 L ABG Oxyhemoglobin ABG Sodium 130.4 L ABG Potassium 5.1 H ABG Glucose 126 H Oxyhemoglobin Carboxyhemoglobin 0.2 L Sodium Potassium Chloride Carbon Dioxide BUN Creatinine Glucose POC Glucose 148 H Hemoglobin A1c Calcium Phosphorus Magnesium Lactate Dehydrogenase C-Reactive Protein Total Protein Albumin Triglycerides Arterial Blood Glucose 126 H Arterial Blood Ionized Calcium 4.4 L Urine Creatinine Random Vancomycin Coronavirus (PCR) Crossmatch 03/24/21 03/24/21 03/24/21 04:00 06:49 12:29 WBC RBC Hgb Hct MCH RDW Plt Count Lymph % (Auto) Mccone # (Auto) Eos # (Auto) Seg Neutrophils % Seg Neutrophils # PT INR D-Dimer ABG pH POC ABG pCO2 POC ABG pO2 ABG pO2 ABG HCO3 ABG O2 Saturation ABG Base Excess ABG Hemoglobin ABG Oxyhemoglobin ABG Sodium ABG Potassium ABG Glucose Oxyhemoglobin Carboxyhemoglobin Sodium Potassium Chloride 95.6 L Carbon Dioxide 20 L BUN 108 H Creatinine 10.8 H Glucose 155 H POC Glucose 136 H 142 H Hemoglobin A1c Calcium Phosphorus Magnesium Lactate Dehydrogenase C-Reactive Protein Total Protein Albumin Triglycerides Arterial Blood Glucose Arterial Blood Ionized Calcium Urine Creatinine Random Vancomycin Coronavirus (PCR) Crossmatch 03/24/21 03/25/21 03/25/21 21:35 00:15 05:51 WBC RBC Hgb Hct MCH RDW Plt Count Lymph % (Auto) Mccone # (Auto) Eos # (Auto) Seg Neutrophils % Seg Neutrophils # PT INR D-Dimer ABG pH 7.241 L POC ABG pCO2 POC ABG pO2 ABG pO2 72.4 L ABG HCO3 ABG O2 Saturation 90.3 L ABG Base Excess ABG Hemoglobin 7.9 L ABG Oxyhemoglobin ABG Sodium ABG Potassium ABG Glucose Oxyhemoglobin 88.4 L Carboxyhemoglobin Sodium Potassium Chloride Carbon Dioxide BUN Creatinine Glucose POC Glucose 110 H 121 H Hemoglobin A1c Calcium Phosphorus Magnesium Lactate Dehydrogenase C-Reactive Protein Total Protein Albumin Triglycerides Arterial Blood Glucose Arterial Blood Ionized Calcium Urine Creatinine Random Vancomycin Coronavirus (PCR) Crossmatch 03/25/21 03/25/21 03/25/21 05:54 05:54 12:21 WBC 12.4 H RBC 2.52 L Hgb 6.9 L Hct 21.1 L MCH RDW 17.4 H Plt Count 102 L Lymph % (Auto) Mccone # (Auto) Eos # (Auto) Seg Neutrophils % Seg Neutrophils # PT INR D-Dimer ABG pH POC ABG pCO2 POC ABG pO2 ABG pO2 ABG HCO3 ABG O2 Saturation ABG Base Excess ABG Hemoglobin ABG Oxyhemoglobin ABG Sodium ABG Potassium ABG Glucose Oxyhemoglobin Carboxyhemoglobin Sodium Potassium Chloride 96.7 L Carbon Dioxide BUN 81 H Creatinine 8.1 H Glucose 116 H POC Glucose 138 H Hemoglobin A1c Calcium 8.2 L Phosphorus Magnesium Lactate Dehydrogenase C-Reactive Protein Total Protein Albumin Triglycerides Arterial Blood Glucose Arterial Blood Ionized Calcium Urine Creatinine Random Vancomycin Coronavirus (PCR) Crossmatch 03/25/21 03/25/21 03/25/21 13:45 17:32 21:30 WBC RBC Hgb Hct MCH RDW Plt Count Lymph % (Auto) Mccone # (Auto) Eos # (Auto) Seg Neutrophils % Seg Neutrophils # PT INR D-Dimer ABG pH POC ABG pCO2 POC ABG pO2 ABG pO2 70.2 L ABG HCO3 ABG O2 Saturation ABG Base Excess ABG Hemoglobin 6.8 L ABG Oxyhemoglobin ABG Sodium ABG Potassium ABG Glucose Oxyhemoglobin 94.5 L Carboxyhemoglobin Sodium Potassium Chloride Carbon Dioxide BUN Creatinine Glucose POC Glucose 110 H Hemoglobin A1c Calcium Phosphorus Magnesium Lactate Dehydrogenase C-Reactive Protein Total Protein Albumin Triglycerides Arterial Blood Glucose Arterial Blood Ionized Calcium Urine Creatinine Random Vancomycin Coronavirus (PCR) Crossmatch See Detail 03/25/21 03/25/21 03/26/21 23:29 Unknown 05:15 WBC 12.4 H 14.0 H RBC 2.49 L 2.83 L Hgb 6.8 L 7.6 L Hct 20.9 L 23.6 L MCH 27 L 27 L RDW 18.0 H 17.1 H Plt Count 107 L 116 L Lymph % (Auto) Mccone # (Auto) Eos # (Auto) Seg Neutrophils % Seg Neutrophils # PT INR D-Dimer ABG pH POC ABG pCO2 POC ABG pO2 ABG pO2 ABG HCO3 ABG O2 Saturation ABG Base Excess ABG Hemoglobin ABG Oxyhemoglobin ABG Sodium ABG Potassium ABG Glucose Oxyhemoglobin Carboxyhemoglobin Sodium Potassium Chloride Carbon Dioxide BUN Creatinine Glucose POC Glucose 113 H Hemoglobin A1c Calcium Phosphorus Magnesium Lactate Dehydrogenase C-Reactive Protein Total Protein Albumin Triglycerides Arterial Blood Glucose Arterial Blood Ionized Calcium Urine Creatinine Random Vancomycin Coronavirus (PCR) Crossmatch 03/26/21 03/26/21 03/26/21 05:15 05:35 09:50 WBC RBC Hgb Hct MCH RDW Plt Count Lymph % (Auto) Mccone # (Auto) Eos # (Auto) Seg Neutrophils % Seg Neutrophils # PT INR D-Dimer ABG pH POC ABG pCO2 POC ABG pO2 ABG pO2 79.9 L ABG HCO3 ABG O2 Saturation ABG Base Excess ABG Hemoglobin 7.1 L ABG Oxyhemoglobin ABG Sodium ABG Potassium ABG Glucose Oxyhemoglobin 94.9 L Carboxyhemoglobin Sodium Potassium 3.4 L Chloride Carbon Dioxide BUN 70 H Creatinine 7.3 H Glucose 142 H POC Glucose 130 H Hemoglobin A1c Calcium 8.2 L Phosphorus Magnesium Lactate Dehydrogenase C-Reactive Protein Total Protein Albumin Triglycerides 254 H Arterial Blood Glucose Arterial Blood Ionized Calcium Urine Creatinine Random Vancomycin Coronavirus (PCR) Crossmatch 03/26/21 03/26/21 03/26/21 11:45 16:36 23:33 WBC RBC Hgb Hct MCH RDW Plt Count Lymph % (Auto) Mccone # (Auto) Eos # (Auto) Seg Neutrophils % Seg Neutrophils # PT INR D-Dimer ABG pH POC ABG pCO2 POC ABG pO2 ABG pO2 ABG HCO3 ABG O2 Saturation ABG Base Excess ABG Hemoglobin ABG Oxyhemoglobin ABG Sodium ABG Potassium ABG Glucose Oxyhemoglobin Carboxyhemoglobin Sodium Potassium Chloride Carbon Dioxide BUN Creatinine Glucose POC Glucose 123 H 121 H 120 H Hemoglobin A1c Calcium Phosphorus Magnesium Lactate Dehydrogenase C-Reactive Protein Total Protein Albumin Triglycerides Arterial Blood Glucose Arterial Blood Ionized Calcium Urine Creatinine Random Vancomycin Coronavirus (PCR) Crossmatch 03/27/21 03/27/21 03/27/21 03:20 04:14 08:20 WBC 13.2 H RBC 2.82 L Hgb 7.9 L Hct 23.5 L MCH RDW 17.3 H Plt Count 125 L Lymph % (Auto) Mccone # (Auto) Eos # (Auto) Seg Neutrophils % Seg Neutrophils # PT INR D-Dimer ABG pH POC ABG pCO2 50.0 H POC ABG pO2 58.3 L ABG pO2 ABG HCO3 ABG O2 Saturation ABG Base Excess ABG Hemoglobin 11.3 L ABG Oxyhemoglobin 88.5 L ABG Sodium ABG Potassium ABG Glucose 132 H Oxyhemoglobin Carboxyhemoglobin 0.2 L Sodium Potassium Chloride Carbon Dioxide BUN Creatinine Glucose POC Glucose 119 H Hemoglobin A1c Calcium Phosphorus Magnesium Lactate Dehydrogenase C-Reactive Protein Total Protein Albumin Triglycerides Arterial Blood Glucose 132 H Arterial Blood Ionized Calcium Urine Creatinine Random Vancomycin Coronavirus (PCR) Crossmatch 03/27/21 03/27/21 03/27/21 08:20 11:39 17:32 WBC RBC Hgb Hct MCH RDW Plt Count Lymph % (Auto) Mccone # (Auto) Eos # (Auto) Seg Neutrophils % Seg Neutrophils # PT INR D-Dimer ABG pH POC ABG pCO2 POC ABG pO2 ABG pO2 ABG HCO3 ABG O2 Saturation ABG Base Excess ABG Hemoglobin ABG Oxyhemoglobin ABG Sodium ABG Potassium ABG Glucose Oxyhemoglobin Carboxyhemoglobin Sodium Potassium Chloride Carbon Dioxide BUN 57 H Creatinine 6.8 H Glucose 131 H POC Glucose 121 H 126 H Hemoglobin A1c Calcium Phosphorus Magnesium Lactate Dehydrogenase C-Reactive Protein Total Protein Albumin Triglycerides Arterial Blood Glucose Arterial Blood Ionized Calcium Urine Creatinine Random Vancomycin Coronavirus (PCR) Crossmatch 03/28/21 03/28/21 03/28/21 00:10 04:45 05:25 WBC RBC Hgb Hct MCH RDW Plt Count Lymph % (Auto) Mccone # (Auto) Eos # (Auto) Seg Neutrophils % Seg Neutrophils # PT INR D-Dimer ABG pH POC ABG pCO2 POC ABG pO2 ABG pO2 57.6 L ABG HCO3 27.1 H ABG O2 Saturation 88.5 L ABG Base Excess ABG Hemoglobin ABG Oxyhemoglobin ABG Sodium ABG Potassium ABG Glucose Oxyhemoglobin 86.6 L Carboxyhemoglobin Sodium Potassium Chloride Carbon Dioxide BUN Creatinine Glucose POC Glucose 113 H 121 H Hemoglobin A1c Calcium Phosphorus Magnesium Lactate Dehydrogenase C-Reactive Protein Total Protein Albumin Triglycerides Arterial Blood Glucose Arterial Blood Ionized Calcium Urine Creatinine Random Vancomycin Coronavirus (PCR) Crossmatch 03/28/21 03/28/21 03/28/21 09:37 09:37 11:48 WBC 16.3 H RBC 2.92 L Hgb 8.2 L Hct 24.8 L MCH RDW 17.5 H Plt Count Lymph % (Auto) 10.7 L Mccone # (Auto) 0.9 H Eos # (Auto) 0.6 H Seg Neutrophils % 80.0 H Seg Neutrophils # 13.0 H PT INR D-Dimer ABG pH POC ABG pCO2 POC ABG pO2 ABG pO2 ABG HCO3 ABG O2 Saturation ABG Base Excess ABG Hemoglobin ABG Oxyhemoglobin ABG Sodium ABG Potassium ABG Glucose Oxyhemoglobin Carboxyhemoglobin Sodium Potassium Chloride Carbon Dioxide BUN 61 H Creatinine 7.7 H Glucose 148 H POC Glucose 123 H Hemoglobin A1c Calcium Phosphorus Magnesium Lactate Dehydrogenase C-Reactive Protein Total Protein Albumin Triglycerides Arterial Blood Glucose Arterial Blood Ionized Calcium Urine Creatinine Random Vancomycin Coronavirus (PCR) Crossmatch Allied health notes reviewed: nursing
[2021-03-28] MEDS: CEFEPIME/NS 2 GM/100 ML 2 GM/100 ML BAG IV SCH (15:19)
[2021-03-28] MEDS: diphenhydrAMINE 50 MG/ML VIAL IV SCH ×2 (17:37→23:39)
--- NOTE | 2021-03-28 20:20 | Progress Note ---
Assessment and Plan #Acute kidney injury: dialysis dependent S/p daily HD, now transitioned to TTS Assess daily for needs for additional sessions Strict input and output Avoid nephrotoxin Renally dose medications Keep MAP > 65 # Hyperkalemia, controlled with HD #Respiratory failure Covid 19 infection currently intubated UF as tolerated with HD, limited by hemodynamic instability #Hyperphosphatemia to be monitored Dialysis has been initiated #Hyponatremia: Improved with HD #Overall prognosis remains guarded Subjective Date of service: 03/28/21 Principal diagnosis: Ac hypoxemic resp failure; AE-Asthma; SAI; Crohn's; COVID- 19; Pneumonia Interval history: Remains intubated. Objective - Exam Narrative Exam: General: NAD HEENT: Oral mucosa moist Neck: Supple, no JVD Chest: Intubated Heart: RRR, S1 and S2, no pericardial rub Abdomen: Soft, nontender, no renal bruit Extremity: No peripheral cyanosis, edema Neurological: Eyes open but not following commands Dermatology: No skin rash Psych: Unable to assess Musculoskeletal: No joint effusion - Vital Signs Vital signs: Vital Signs - 12hr 03/28/21 03/28/21 03/28/21 08:25 08:31 09:01 Temperature Pulse Rate 129 H 133 H 129 H Pulse Rate [ Anterior Bilateral Throughout] Pulse Rate [ From Monitor] Respiratory 39 H 48 H Rate Respiratory Rate [Anterior Bilateral Throughout] Blood Pressure 136/49 116/45 106/32 O2 Sat by Pulse 97 100 97 Oximetry 03/28/21 03/28/21 03/28/21 09:25 09:31 10:00 Temperature Pulse Rate 128 H 123 H Pulse Rate [ Anterior Bilateral Throughout] Pulse Rate [ From Monitor] Respiratory 39 H 42 H 40 H Rate Respiratory Rate [Anterior Bilateral Throughout] Blood Pressure 96/31 83/32 O2 Sat by Pulse 100 100 Oximetry 03/28/21 03/28/21 03/28/21 10:31 11:00 11:30 Temperature Pulse Rate 119 H 118 H Pulse Rate [ Anterior Bilateral Throughout] Pulse Rate [ From Monitor] Respiratory 35 H 28 H Rate Respiratory Rate [Anterior Bilateral Throughout] Blood Pressure 98/42 114/45 83/42 O2 Sat by Pulse 100 100 100 Oximetry 03/28/21 03/28/21 03/28/21 11:45 12:00 12:30 Temperature 102 F H Pulse Rate 113 H 112 H Pulse Rate [ Anterior Bilateral Throughout] Pulse Rate [ 116 H From Monitor] Respiratory 20 40 H Rate Respiratory Rate [Anterior Bilateral Throughout] Blood Pressure 117/34 103/40 O2 Sat by Pulse 100 100 Oximetry 03/28/21 03/28/21 03/28/21 13:00 13:30 13:40 Temperature Pulse Rate 112 H 116 H 117 H Pulse Rate [ Anterior Bilateral Throughout] Pulse Rate [ From Monitor] Respiratory 46 H 58 H Rate Respiratory Rate [Anterior Bilateral Throughout] Blood Pressure 113/40 120/50 126/46 O2 Sat by Pulse 100 100 98 Oximetry 03/28/21 03/28/21 03/28/21 14:00 14:30 15:00 Temperature Pulse Rate 118 H 116 H 120 H Pulse Rate [ Anterior Bilateral Throughout] Pulse Rate [ From Monitor] Respiratory 29 H 31 H 28 H Rate Respiratory Rate [Anterior Bilateral Throughout] Blood Pressure 126/66 141/60 133/62 O2 Sat by Pulse 99 99 100 Oximetry 03/28/21 03/28/21 03/28/21 15:30 16:00 16:30 Temperature Pulse Rate 122 H 122 H 123 H Pulse Rate [ Anterior Bilateral Throughout] Pulse Rate [ 122 H From Monitor] Respiratory 36 H 43 H 46 H Rate Respiratory Rate [Anterior Bilateral Throughout] Blood Pressure 135/66 152/70 135/62 O2 Sat by Pulse 99 97 99 Oximetry 03/28/21 03/28/21 03/28/21 17:00 17:30 17:31 Temperature Pulse Rate 121 H 122 H 124 H Pulse Rate [ Anterior Bilateral Throughout] Pulse Rate [ From Monitor] Respiratory 52 H 40 H Rate Respiratory Rate [Anterior Bilateral Throughout] Blood Pressure 125/72 150/68 150/68 O2 Sat by Pulse 99 99 100 Oximetry 03/28/21 03/28/21 03/28/21 18:00 19:27 19:28 Temperature Pulse Rate 123 H 123 H Pulse Rate [ 122 H Anterior Bilateral Throughout] Pulse Rate [ From Monitor] Respiratory 35 H Rate Respiratory 33 H Rate [Anterior Bilateral Throughout] Blood Pressure 128/55 139/68 O2 Sat by Pulse 99 100 Oximetry 03/28/21 19:50 Temperature 102.7 F H Pulse Rate Pulse Rate [ Anterior Bilateral Throughout] Pulse Rate [ From Monitor] Respiratory Rate Respiratory Rate [Anterior Bilateral Throughout] Blood Pressure O2 Sat by Pulse Oximetry - Lab 03/28/21 09:37 03/28/21 09:37 Most recent lab results ABG pH 7.362 pH Units (7.350-7.450) 03/28/21 04:45 ABG pCO2 48.9 mm Hg 03/28/21 04:45 ABG pO2 57.6 mm Hg (80.0-90.0) L 03/28/21 04:45 ABG HCO3 27.1 mmol/L (20.0-26.0) H 03/28/21 04:45 ABG O2 Saturation 88.5 % (95.0-99.0) L 03/28/21 04:45 Calcium 8.6 mg/dL (8.4-10.2) 03/28/21 09:37 Phosphorus 10.80 mg/dL (2.5-4.5) H 03/23/21 04:30 Magnesium 3.50 mg/dL (1.7-2.3) H 03/23/21 04:30 Urine Creatinine 40.1 mg/dL (0.1-20.0) H 03/14/21 17:50 Urine Sodium 124 mmol/L 03/14/21 17:50 Medications & Allergies - Medications Allergies/Adverse Reactions: Allergies acetaminophen [From Percocet] Adverse Reaction (Verified 03/13/21 12:45) Swelling hydrocodone bitartrate [From Vicodin] Adverse Reaction (Verified 03/13/21 12:45) Swelling oxycodone HCl [From Percocet] Adverse Reaction (Verified 03/13/21 12:45) Swelling Home Medications: Home Medications Medication Instructions Recorded Confirmed Last Taken Type Chlorhexidine Mouthwash [Peridex] 15 ml MM BID #1 bottle 10/11/20 03/13/21 Unknown Rx Clindamycin [Clindamycin CAP] 300 mg PO Q8H #21 cap 10/11/20 03/13/21 Unknown Rx Naproxen 500 mg PO Q12H PRN #12 tablet 10/11/20 03/13/21 Unknown Rx Butalb/Acetamin/Caff 50-325-40 1 - 2 tab PO Q6HR PRN #15 tab 12/05/20 03/13/21 Unknown Rx [Fioricet 50-325-40] Famotidine [Pepcid] 20 mg PO BID #30 tablet 12/05/20 03/13/21 Unknown Rx Ketorolac [Toradol] 10 mg PO Q8H PRN #20 tablet 12/05/20 03/13/21 Unknown Rx Ondansetron [Zofran Odt] 4 mg PO Q6HR PRN #20 tab.rapdis 12/05/20 03/13/21 Unknown Rx Albuterol Sulfate [Proair 90 mcg IH Q4HR PRN #2 [email or web address] 01/01/21 03/13/21 Unknown Rx Respiclick] Mupirocin [Bactroban 2% OINT] 1 applic TP BID 7 Days #1 tube 01/01/21 03/13/21 Unknown Rx Triamcinolone Aceton 0.1% (Nf) 1 applic TP BID 14 Days #1 tube 01/01/21 03/13/21 Unknown Rx [Kenalog (NF)] predniSONE [Deltasone] 40 mg PO QDAY #8 tab 01/01/21 03/13/21 Unknown Rx Active Medications: Generic Name Dose Route Start Last Admin Trade Name Freq PRN Reason Stop Dose Admin Acetaminophen 650 mg 03/13/21 19:30 03/28/21 08:17 Acetaminophen 325 Mg Tab PO 650 mg Q4H PRN Administration Pain MILD(1-3)/Fever >100.5/SALAS Albuterol 2.5 mg 03/19/21 00:53 Albuterol 2.5 Mg/3 Ml Nebu IH Q4HRT PRN Shortness Of Breath Albuterol/Ipratropium 1 ampul 03/19/21 08:00 03/28/21 19:27 Ipratropium/Albuterol Sulfate 3 Ml Ampul.Neb IH 1 ampul Q6HRT INESSA Administration Lipase/Protease/Amylase 1 each 03/15/21 11:42 Lipase 10,500/Protease 25,000/Amylase 43,750 (Units) Dr Christopher MYERSTUBE PRN PRN For Clogged Feeding Tube Ascorbic Acid 500 mg 03/14/21 22:00 03/28/21 09:24 Ascorbic Acid 500 Mg Tab PO 500 mg BID INESSA Administration Ciprofloxacin/Dexamethasone 1 drops 03/24/21 18:00 03/28/21 17:33 Ciprofloxacin/Dexameth Otic Susp 7.5ml TP 03/29/21 17:59 1 drops QID INESSA Administration Dextrose 50 ml 03/14/21 11:02 03/15/21 11:40 Dextrose 50% In Water (25gm) 50 Ml Syringe IV 50 ml Q30MIN PRN Administration Hypoglycemia Protocol Diphenhydramine HCl 25 mg 03/28/21 18:00 03/28/21 17:37 Diphenhydramine 50 Mg/Ml Vial IV 03/31/21 17:59 25 mg Q6H INESSA Administration Famotidine 10 mg 03/17/21 22:00 03/28/21 09:24 Famotidine 10 Mg Tab PO 10 mg BID INESSA Administration Fentanyl 50 mcg 03/15/21 10:43 03/28/21 09:25 Fentanyl 100 Mcg/2 Ml Inj IV 50 mcg Q10MIN PRN Administration ANALGESIA Hydralazine HCl 10 mg 03/15/21 10:10 03/15/21 10:32 Hydralazine 20 Mg/1 Ml Inj IV 10 mg Q4HR PRN Administration Hypertension Hydrophilic Ointment 1 applic 03/14/21 17:50 Lip Therapy Vaseline TP Q2HR PRN Dry Lips Propofol 1,000 mg in 100 mls @ 4.123 mls/hr 03/15/21 11:00 03/28/21 15:19 Diprivan 10 Mg/Ml IV 35 mcg/kg/min TITR INESSA 28.862 mls/hr Administration Protocol 5 MCG/KG/MIN Fentanyl Citrate 2,000 mcg in 100 mls @ 6.872 mls/hr 03/15/21 11:00 03/28/21 17:34 Fentanyl Drip Premix IV 3 mcg/kg/hr TITR INESSA 20.616 mls/hr Titration Protocol 1 MCG/KG/HR Sodium Chloride 500 mls @ 1 mls/hr 03/16/21 17:19 Nacl 0.9% 500 Ml IV DIRECT PRN ARTERIAL LINE FLUSH Vasopressin 20 unit/ Sodium 101 mls @ 9.09 mls/hr 03/21/21 16:00 03/24/21 08:10 Chloride IV 0 units/min TITR INESSA 0 mls/hr Titration Protocol 0.03 UNITS/MIN NORepinephrine/NS 8 MG-250 ML 8 mg in 250 mls @ 3.75 mls/hr 03/23/21 11:00 03/28/21 17:50 Norepinephrine/Ns 8 Mg-250 Ml (Double Conc) IV 2 mcg/min TITRATE INESSA 3.75 mls/hr Titration Protocol 2 MCG/MIN Sodium Chloride 100 mls @ 999 mls/hr 03/27/21 08:12 Nacl 0.9% IV KARLOS PRN Hypotension Cefepime HCl 2 gm in 100 mls @ 200 mls/hr 03/27/21 16:00 03/28/21 15:19 Cefepime/Ns 2 Gm/100 Ml IV 200 mls/hr Q24H INESSA Administration Protocol Insulin Human Lispro 0 unit 03/14/21 12:00 03/28/21 17:34 Insulin Lispro 100 Unit/Ml SUB-Q Not Given Q6HR [facility] Protocol Lorazepam 1 mg 03/13/21 19:40 03/18/21 14:11 Lorazepam 2 Mg/Ml Vial IV 1 mg Q4H PRN Administration Anxiety Multi-Ingred Cream/Lotion/Oil/Oint 1 applic 03/14/21 17:50 Mineral Oil/Petrolatum, White Ophth Oint 3.5 Gm OU Q4HR PRN Dry Eye(s) Ondansetron HCl 4 mg 03/13/21 19:30 03/21/21 12:05 Ondansetron 4 Mg/2 Ml Inj IV 4 mg Q8H PRN Administration Nausea And Vomiting Senna/Docusate Sodium 1 tab 03/14/21 22:00 03/28/21 09:24 Sennosides/Docusate Sodium 8.6/50 Mg Tab FEEDTUBE 1 tab BID INESSA Administration Simple Syrup 15 ml 03/15/21 11:42 Simple Syrup 15 Ml FEEDTUBE PRN PRN Hypoglycemia Simple Syrup 30 ml 03/15/21 11:42 Simple Syrup 15 Ml FEEDTUBE PRN PRN Hypoglycemia Sodium Bicarbonate 325 mg 03/15/21 11:42 03/21/21 17:21 Sodium Bicarbonate 325 Mg Tab FEEDTUBE 325 mg PRN PRN Administration For Clogged Feeding Tube Sodium Chloride 10 ml 03/13/21 22:00 03/28/21 09:29 Sodium Chloride 0.9% 10 Ml Flush Syringe IV 10 ml BID INESSA Administration Sodium Chloride 10 ml 03/13/21 19:30 Sodium Chloride 0.9% 10 Ml Flush Syringe IV PRN PRN LINE FLUSH Zinc Sulfate 220 mg 03/14/21 22:00 03/28/21 09:24 Zinc Sulfate 220 Mg Cap PO 220 mg BID INESSA Administration
[2021-03-29] MEDS: fentaNYL DRIP Premix 2,000 MCG/100 ML BAG IV SCH ×5 (04:01→23:28)
[2021-03-29] MEDS: IPRATROPIUM/ALBUTEROL SULFATE 3 ML AMPUL.NEB IH SCH ×4 (04:29→19:45)
[2021-03-29] MEDS: diphenhydrAMINE 50 MG/ML VIAL IV SCH ×3 (05:09→18:45)
[2021-03-29] MEDS: INSULIN LISPRO 100 UNIT/ML SUB-Q SCH ×4 (05:09→17:55)
[2021-03-29 05:17] LABS: Hematocrit 27.2 % (30.3-42.9); Hemoglobin 8.8 gm/dl (10.1-14.3); Mean Corpuscular HGB Conc 32 % (30-34); Mean Corpuscular Volume 87 fl (79-97); Platelet Count 132 K/mm3 (140-440); Red Blood Count 3.15 M/mm3 (3.65-5.03); Red Cell Distribution Width 17.9 % (13.2-15.2)
[2021-03-29 05:35] LABS: Albumin 2.2 g/dL (3.9-5); Calcium 8.5 mg/dL (8.4-10.2)
[2021-03-29 09:29] LABS: ABG Base Excess -4.9 mmol/L (-2.0-3.0); ABG HCO3 22.1 mmol/L (20.0-26.0); ABG Methemoglobin 0.5 % (0.0-1.5); ABG Oxygen Saturation 95.9 % (95.0-99.0); ABG PCO2 50.6 mm Hg; ABG PH 7.258 pH Units (7.350-7.450); ABG PO2 84.9 mm Hg (80.0-90.0)
[2021-03-29] MEDS: ZINC SULFATE 220 MG CAP PO SCH ×2 (09:30→22:24)
[2021-03-29] MEDS: ASCORBIC ACID 500 MG TAB PO SCH ×2 (09:30→22:24)
[2021-03-29] MEDS: FAMOTIDINE 10 MG TAB PO SCH ×2 (09:30→22:24)
[2021-03-29] MEDS: SENNOSIDES/DOCUSATE SODIUM 8.6/50 MG TAB FEEDTUBE SCH ×2 (09:30→22:24)
--- NOTE | 2021-03-29 09:34 | Progress Note ---
Subjective Date of service: 03/29/21 Principal diagnosis: Ac hypoxemic resp failure; AE-Asthma; SAI; Crohn's; COVID- 19; Pneumonia Interval history: #Acute kidney injury: dialysis dependent S/p daily HD, now transitioned to TTS Assess daily for needs for additional sessions Strict input and output Avoid nephrotoxin Renally dose medications Keep MAP > 65 # Hyperkalemia, controlled with HD #Respiratory failure Covid 19 infection currently intubated UF as tolerated with HD, limited by hemodynamic instability #Hyperphosphatemia to be monitored Dialysis has been initiated #Hyponatremia: Improved with HD #Overall prognosis remains guarded Subjective Principal diagnosis: Ac hypoxemic resp failure; AE-Asthma; SAI; Crohn's; COVID- 19; Pneumonia Interval history: Remains intubated. Objective - Exam Narrative Exam: General: NAD HEENT: Oral mucosa moist Neck: Supple, no JVD Chest: Intubated Heart: RRR, S1 and S2, no pericardial rub Abdomen: Soft, nontender, no renal bruit Extremity: No peripheral cyanosis, edema Neurological: Eyes open but not following commands Dermatology: No skin rash Psych: Unable to assess Musculoskeletal: No joint effusion Objective - Vital Signs Vital signs: Vital Signs - 12hr 03/28/21 03/28/21 03/28/21 21:45 22:00 22:15 Temperature Pulse Rate 118 H 118 H 117 H Pulse Rate [ From Monitor] Respiratory 33 H 27 H 38 H Rate Blood Pressure 107/55 114/47 99/44 O2 Sat by Pulse 99 100 97 Oximetry 03/28/21 03/28/21 03/28/21 22:30 22:45 23:00 Temperature Pulse Rate 118 H 118 H 117 H Pulse Rate [ From Monitor] Respiratory 26 H 36 H 22 Rate Blood Pressure 106/38 100/40 111/33 O2 Sat by Pulse 99 97 100 Oximetry 03/28/21 03/28/21 03/28/21 23:08 23:15 23:21 Temperature Pulse Rate 118 H 119 H 119 H Pulse Rate [ From Monitor] Respiratory 33 H 38 H Rate Blood Pressure 111/33 102/40 102/40 O2 Sat by Pulse 100 98 98 Oximetry 03/28/21 03/28/21 03/28/21 23:30 23:45 23:57 Temperature 102.6 F H Pulse Rate 122 H 121 H Pulse Rate [ From Monitor] Respiratory 37 H 37 H Rate Blood Pressure 101/55 114/54 O2 Sat by Pulse 97 100 Oximetry 03/29/21 03/29/21 03/29/21 00:00 00:15 00:30 Temperature Pulse Rate 121 H 120 H 119 H Pulse Rate [ 131 H From Monitor] Respiratory 35 H 35 H 25 H Rate Blood Pressure 99/41 103/34 111/39 O2 Sat by Pulse 99 100 99 Oximetry 03/29/21 03/29/21 03/29/21 00:46 01:00 01:15 Temperature Pulse Rate 119 H 119 H 119 H Pulse Rate [ From Monitor] Respiratory 31 H 34 H 30 H Rate Blood Pressure 111/29 98/44 107/34 O2 Sat by Pulse 100 98 99 Oximetry 03/29/21 03/29/21 03/29/21 01:30 01:45 02:00 Temperature Pulse Rate 118 H 121 H 120 H Pulse Rate [ From Monitor] Respiratory 24 34 H 29 H Rate Blood Pressure 107/34 91/41 100/31 O2 Sat by Pulse 100 96 99 Oximetry 03/29/21 03/29/21 03/29/21 02:15 02:30 02:46 Temperature Pulse Rate 121 H 121 H 121 H Pulse Rate [ From Monitor] Respiratory 38 H 35 H 34 H Rate Blood Pressure 107/41 106/36 94/35 O2 Sat by Pulse 99 99 100 Oximetry 03/29/21 03/29/21 03/29/21 03:00 03:16 03:25 Temperature 103.5 F H Pulse Rate 123 H 123 H Pulse Rate [ From Monitor] Respiratory 38 H 39 H Rate Blood Pressure 94/35 100/45 O2 Sat by Pulse 99 100 Oximetry 03/29/21 03/29/21 03/29/21 03:30 03:46 04:00 Temperature Pulse Rate 124 H 129 H 131 H Pulse Rate [ 123 H From Monitor] Respiratory 22 30 H Rate Blood Pressure 125/33 117/31 117/31 O2 Sat by Pulse 99 95 100 Oximetry 03/29/21 03/29/21 03/29/21 04:16 04:28 04:30 Temperature Pulse Rate 131 H 132 H 128 H Pulse Rate [ From Monitor] Respiratory 38 H 38 H Rate Blood Pressure 102/57 102/57 110/62 O2 Sat by Pulse 99 99 99 Oximetry 03/29/21 03/29/21 03/29/21 04:46 05:00 05:16 Temperature Pulse Rate 135 H 130 H 133 H Pulse Rate [ From Monitor] Respiratory 37 H 37 H 39 H Rate Blood Pressure 82/25 109/59 123/81 O2 Sat by Pulse 98 99 100 Oximetry 03/29/21 03/29/21 03/29/21 05:30 05:46 06:00 Temperature Pulse Rate 133 H 130 H 130 H Pulse Rate [ From Monitor] Respiratory 37 H 39 H 39 H Rate Blood Pressure 123/81 74/56 74/56 O2 Sat by Pulse 99 98 99 Oximetry 03/29/21 03/29/21 06:16 06:30 Temperature Pulse Rate 129 H 128 H Pulse Rate [ From Monitor] Respiratory 33 H 36 H Rate Blood Pressure 137/71 141/88 O2 Sat by Pulse 98 98 Oximetry - Lab 03/29/21 04:45 03/29/21 04:45 Most recent lab results ABG pH 7.258 pH Units (7.350-7.450) L 03/29/21 Unknown ABG pCO2 50.6 mm Hg 03/29/21 Unknown ABG pO2 84.9 mm Hg (80.0-90.0) 03/29/21 Unknown ABG HCO3 22.1 mmol/L (20.0-26.0) 03/29/21 Unknown ABG O2 Saturation 95.9 % (95.0-99.0) 03/29/21 Unknown Calcium 8.5 mg/dL (8.4-10.2) 03/29/21 04:45 Phosphorus 10.80 mg/dL (2.5-4.5) H 03/23/21 04:30 Magnesium 3.50 mg/dL (1.7-2.3) H 03/23/21 04:30 Urine Creatinine 40.1 mg/dL (0.1-20.0) H 03/14/21 17:50 Urine Sodium 124 mmol/L 03/14/21 17:50 Medications & Allergies - Medications Allergies/Adverse Reactions: Allergies acetaminophen [From Percocet] Adverse Reaction (Verified 03/13/21 12:45) Swelling hydrocodone bitartrate [From Vicodin] Adverse Reaction (Verified 03/13/21 12:45) Swelling oxycodone HCl [From Percocet] Adverse Reaction (Verified 03/13/21 12:45) Swelling Home Medications: Home Medications Medication Instructions Recorded Confirmed Last Taken Type Chlorhexidine Mouthwash [Peridex] 15 ml MM BID #1 bottle 10/11/20 03/13/21 Unknown Rx Clindamycin [Clindamycin CAP] 300 mg PO Q8H #21 cap 10/11/20 03/13/21 Unknown Rx Naproxen 500 mg PO Q12H PRN #12 tablet 10/11/20 03/13/21 Unknown Rx Butalb/Acetamin/Caff 50-325-40 1 - 2 tab PO Q6HR PRN #15 tab 12/05/20 03/13/21 Unknown Rx [Fioricet 50-325-40] Famotidine [Pepcid] 20 mg PO BID #30 tablet 12/05/20 03/13/21 Unknown Rx Ketorolac [Toradol] 10 mg PO Q8H PRN #20 tablet 12/05/20 03/13/21 Unknown Rx Ondansetron [Zofran Odt] 4 mg PO Q6HR PRN #20 tab.rapdis 12/05/20 03/13/21 Unkno wn Rx Albuterol Sulfate [Proair 90 mcg IH Q4HR PRN #2 aer.pow.ba 01/01/21 03/13/21 Unknown Rx Respiclick] Mupirocin [Bactroban 2% OINT] 1 applic TP BID 7 Days #1 tube 01/01/21 03/13/21 Unknown Rx Triamcinolone Aceton 0.1% (Nf) 1 applic TP BID 14 Days #1 tube 01/01/21 03/13/21 Unknown Rx [Kenalog (NF)] predniSONE [Deltasone] 40 mg PO QDAY #8 tab 01/01/21 03/13/21 Unknown Rx Active Medications: Generic Name Dose Route Start Last Admin Trade Name Freq PRN Reason Stop Dose Admin Acetaminophen 650 mg 03/13/21 19:30 03/28/21 08:17 Acetaminophen 325 Mg Tab PO 650 mg Q4H PRN Administration Pain MILD(1-3)/Fever >100.5/SALAS Albuterol 2.5 mg 03/19/21 00:53 Albuterol 2.5 Mg/3 Ml Nebu IH Q4HRT PRN Shortness Of Breath Albuterol/Ipratropium 1 ampul 03/19/21 08:00 03/29/21 09:15 Ipratropium/Albuterol Sulfate 3 Ml Ampul.Neb IH 1 ampul Q6HRT INESSA Administration Lipase/Protease/Amylase 1 each 03/15/21 11:42 Lipase 10,500/Protease 25,000/Amylase 43,750 (Units) Dr Cap FEEDTUBE PRN PRN For Clogged Feeding Tube Ascorbic Acid 500 mg 03/14/21 22:00 03/28/21 21:52 Ascorbic Acid 500 Mg Tab PO 500 mg BID INESSA Administration Ciprofloxacin/Dexamethasone 1 drops 03/24/21 18:00 03/28/21 21:52 Ciprofloxacin/Dexameth Otic Susp 7.5ml TP 03/29/21 17:59 1 drops QID INESSA Administration Dextrose 50 ml 03/14/21 11:02 03/15/21 11:40 Dextrose 50% In Water (25gm) 50 Ml Syringe IV 50 ml Q30MIN PRN Administration Hypoglycemia Protocol Diphenhydramine HCl 25 mg 03/28/21 18:00 03/29/21 05:09 Diphenhydramine 50 Mg/Ml Vial IV 03/31/21 17:59 25 mg Q6H INESSA Administration Famotidine 10 mg 03/17/21 22:00 03/28/21 21:52 Famotidine 10 Mg Tab PO 10 mg BID INESSA Administration Fentanyl 50 mcg 03/15/21 10:43 03/28/21 09:25 Fentanyl 100 Mcg/2 Ml Inj IV 50 mcg Q10MIN PRN Administration ANALGESIA Hydralazine HCl 10 mg 03/15/21 10:10 03/15/21 10:32 Hydralazine 20 Mg/1 Ml Inj IV 10 mg Q4HR PRN Administration Hypertension Hydrophilic Ointment 1 applic 03/14/21 17:50 Lip Therapy Vaseline TP Q2HR PRN Dry Lips Propofol 1,000 mg in 100 mls @ 4.123 mls/hr 03/15/21 11:00 03/29/21 07:51 Diprivan 10 Mg/Ml IV 30 mcg/kg/min TITR INESSA 24.739 mls/hr Administration Protocol 5 MCG/KG/MIN Fentanyl Citrate 2,000 mcg in 100 mls @ 6.872 mls/hr 03/15/21 11:00 03/29/21 04:01 Fentanyl Drip Premix IV 3 mcg/kg/hr TITR INESSA 20.616 mls/hr Administration Protocol 1 MCG/KG/HR Sodium Chloride 500 mls @ 1 mls/hr 03/16/21 17:19 Nacl 0.9% 500 Ml IV DIRECT PRN ARTERIAL LINE FLUSH Vasopressin 20 unit/ Sodium 101 mls @ 9.09 mls/hr 03/21/21 16:00 03/24/21 08:10 Chloride IV 0 units/min TITR INESSA 0 mls/hr Titration Protocol 0.03 UNITS/MIN NORepinephrine/NS 8 MG-250 ML 8 mg in 250 mls @ 3.75 mls/hr 03/23/21 11:00 03/29/21 04:04 Norepinephrine/Ns 8 Mg-250 Ml (Double Conc) IV 2 mcg/min TITRATE INESSA 3.75 mls/hr Titration Protocol 2 MCG/MIN Sodium Chloride 100 mls @ 999 mls/hr 03/27/21 08:12 Nacl 0.9% IV KARLOS PRN Hypotension Cefepime HCl 2 gm in 100 mls @ 200 mls/hr 03/27/21 16:00 03/28/21 15:19 Cefepime/Ns 2 Gm/100 Ml IV 200 mls/hr Q24H INESSA Administration Protocol Insulin Human Lispro 0 unit 03/14/21 12:00 03/29/21 05:09 Insulin Lispro 100 Unit/Ml SUB-Q Not Given Q6HR INESSA Protocol Lorazepam 1 mg 03/13/21 19:40 03/18/21 14:11 Lorazepam 2 Mg/Ml Vial IV 1 mg Q4H PRN Administration Anxiety Multi-Ingred Cream/Lotion/Oil/Oint 1 applic 03/14/21 17:50 Mineral Oil/Petrolatum, White Ophth Oint 3.5 Gm OU Q4HR PRN Dry Eye(s) Ondansetron HCl 4 mg 03/13/21 19:30 03/21/21 12:05 Ondansetron 4 Mg/2 Ml Inj IV 4 mg Q8H PRN Administration Nausea And Vomiting Senna/Docusate Sodium 1 tab 03/14/21 22:00 03/28/21 21:52 Sennosides/Docusate Sodium 8.6/50 Mg Tab FEEDTUBE 1 tab BID INESSA Administration Simple Syrup 15 ml 03/15/21 11:42 Simple Syrup 15 Ml FEEDTUBE PRN PRN Hypoglycemia Simple Syrup 30 ml 03/15/21 11:42 Simple Syrup 15 Ml FEEDTUBE PRN PRN Hypoglycemia Sodium Bicarbonate 325 mg 03/15/21 11:42 03/21/21 17:21 Sodium Bicarbonate 325 Mg Tab FEEDTUBE 325 mg PRN PRN Administration For Clogged Feeding Tube Sodium Chloride 10 ml 03/13/21 22:00 03/28/21 21:52 Sodium Chloride 0.9% 10 Ml Flush Syringe IV 10 ml BID INESSA Administration Sodium Chloride 10 ml 03/13/21 19:30 Sodium Chloride 0.9% 10 Ml Flush Syringe IV PRN PRN LINE FLUSH Zinc Sulfate 220 mg 03/14/21 22:00 03/28/21 21:52 Zinc Sulfate 220 Mg Cap PO 220 mg BID INESSA Administration
[2021-03-29] MEDS: CIPROFLOXACIN/DEXAMETH OTIC SUSP 7.5ML TP SCH ×2 (10:30→14:00)
--- NOTE | 2021-03-29 12:04 | Progress Note ---
Assessment and Plan Cultures: SARS CoV2 PCR: Positive 03/13/2021 blood culture: No growth Resp cultures 03/14/2021: MSSA 03/23/2021 blood culture: No growth 03/23/2021 sputum culture: Usual respiratory maury A/P: 31-year-old female with asthma, morbid obesity, Crohn's disease admitted with cough and shortness of breath: #Septic shock #Bilateral pneumonia: Secondary to COVID-19. Severe disease, then developed MS SA in the lungs. D-dimer very high #Acute hypoxic respiratory failure: on the vent #Acute renal failure: progressive. Nephrology following, initiated HD. #Acute asthma exacerbation #Morbid obesity Recs: -Actemra given 03/15/2021, completed steroids, was not a candidate for remdesivir due to renal failure -continue Cefepime, renally dosed -trend d-dimer, CRP every 2-3 days -d/w pharmacy/primary team about anticoagulation given very high d-dimer -extremely poor prognosis Donn Solano MD, FACP [facility] O: [phone] F: [phone] Subjective Date of service: 03/29/21 Principal diagnosis: Ac hypoxemic resp failure; AE-Asthma; SAI; Crohn's; COVID- 19; Pneumonia Interval history: Persistently febrile. Remains on the vent. Objective - Exam Narrative Exam: Physical Exam (reviewed in chart to minimize risk of transmission) Constitutional: deferred Head, Ears, Nose: deferred Eyes: deferred Neck: deferred Oral: deferred Cardiovascular: deferred Respiratory: deferred GI: deferred Musculoskeletal: deferred Skin: deferred Hem/Lymphatic: deferred Psych: deferred Neurological: deferred - Constitutional Vitals: Vital Signs Temp Pulse Resp BP Pulse Ox 102.1 F H 124 H 41 H 117/51 99 03/29/21 08:00 03/29/21 10:16 03/29/21 10:16 03/29/21 10:16 03/29/21 10:16 Temperature -Last 24 Hours Temperature 102.1 F Temperature 103.5 F Temperature 102.6 F Temperature 102.7 F - Labs CBC & Chem 7: 03/29/21 04:45 03/29/21 04:45 Labs: Abnormal lab results 03/28/21 03/28/2121 Range/Units 17:33 21:08 23:38 WBC (4.5-11.0) K/mm3 RBC (3.65-5.03) M/mm3 Hgb (10.1-14.3) gm/dl Hct (30.3-42.9) % RDW (13.2-15.2) % Plt Count (140-440) K/mm3 ABG pH (7.350-7.450) pH Units POC ABG pO2 80.5 L (83-108) mmHg ABG Base Excess (-2.0-3.0) mmol/L ABG Hemoglobin 9.5 L (12.0-17.5) ABG Sodium 133.3 L (136.0-145.0) mmol/L ABG Glucose 134 H (65-95) mg/dL Oxyhemoglobin (95.0-99.0) % Carboxyhemoglobin 0.3 L (0.5-1.5) Chloride (98-107) mmol/L Carbon Dioxide (22-30) mmol/L BUN (7-17) mg/dL Creatinine (0.6-1.2) mg/dL Glucose (65-100) mg/dL POC Glucose 128 H 112 H (70-105) mg/dL Albumin (3.9-5) g/dL Triglycerides (2-149) mg/dL Arterial Blood Glucose 134 H (65-95) mg/dL 03/29/21 03/29/21 03/29/21 Range/Units 04:45 04:45 04:45 WBC 17.5 H (4.5-11.0) K/mm3 RBC 3.15 L (3.65-5.03) M/mm3 Hgb 8.8 L (10.1-14.3) gm/dl Hct 27.2 L (30.3-42.9) % RDW 17.9 H (13.2-15.2) % Plt Count 132 L (140-440) K/mm3 ABG pH (7.350-7.450) pH Units POC ABG pO2 (83-108) mmHg ABG Base Excess (-2.0-3.0) mmol/L ABG Hemoglobin (12.0-17.5) ABG Sodium (136.0-145.0) mmol/L ABG Glucose (65-95) mg/dL Oxyhemoglobin (95.0-99.0) % Carboxyhemoglobin (0.5-1.5) Chloride 97.7 L (98-107) mmol/L Carbon Dioxide 21 L (22-30) mmol/L BUN 78 H (7-17) mg/dL Creatinine 9.5 H (0.6-1.2) mg/dL Glucose 132 H (65-100) mg/dL POC Glucose (70-105) mg/dL Albumin 2.2 L (3.9-5) g/dL Triglycerides 385 H (2-149) mg/dL Arterial Blood Glucose (65-95) mg/dL 03/29/21 03/29/21 Range/Units 11:35 Unknown WBC (4.5-11.0) K/mm3 RBC (3.65-5.03) M/mm3 Hgb (10.1-14.3) gm/dl Hct (30.3-42.9) % RDW (13.2-15.2) % Plt Count (140-440) K/mm3 ABG pH 7.258 L (7.350-7.450) pH Units POC ABG pO2 (83-108) mmHg ABG Base Excess -4.9 L (-2.0-3.0) mmol/L ABG Hemoglobin 8.8 L (12.0-17.5) ABG Sodium (136.0-145.0) mmol/L ABG Glucose (65-95) mg/dL Oxyhemoglobin 93.9 L (95.0-99.0) % Carboxyhemoglobin (0.5-1.5) Chloride (98-107) mmol/L Carbon Dioxide (22-30) mmol/L BUN (7-17) mg/dL Creatinine (0.6-1.2) mg/dL Glucose (65-100) mg/dL POC Glucose 148 H (70-105) mg/dL Albumin (3.9-5) g/dL Triglycerides (2-149) mg/dL Arterial Blood Glucose (65-95) mg/dL
[2021-03-29] MEDS: APIXABAN 2.5 MG TAB PO SCH ×2 (12:53→23:34)
--- NOTE | 2021-03-29 12:56 | Progress Note ---
Assessment and Plan Acute hypoxemic respiratory failure Acute asthma exacerbation Morbid obesity Crohn's disease Metabolic acidosis Acute kidney injury Coronavirus infection Pneumonia (CAP) Oropharyngeal dysphagia Obesity, if not mentioned above - resume Apixaban for VTE prophylaxis - repeat ABG at 9pm and address - prognosis guarded but ARDS numbers improving - continue care as below otherwise; - nephrology input appreciated; HD/UF for toxin and volume clearance - HD/UF sessions per nephrology prescription - vasopressors for target MAP > 65 mmHg - continue Daily SAT and SBT assessment as tolerated - continue to wean supplemental oxygen for target O2 sat's > 90% acutely - VAP bundle addressed - continue lung protective strategies - continue bronchodilators with pulmonary hygiene per RT - wean per pulmonary driven protocols otherwise - continue accuchecks with glycemic control per SSI (While critically ill target blood glucose of 140-180 mg/dL; avoid hypoglycemia) - sedation prn for target RASS 0 to -1 - avoid nephrotoxins, renally dose all medications - continue to avoid benzodiazepine's, reduce the possibility of delirium - AB's per ID rec's - prn analgesia per CPOT score - Maintenance of sleep-wake cycle, avoid delirium - continue enteral nutritional support at goal rate as tolerated - G.I. & VTE prophylaxis - PT/OT/ROM exercises - continue mobility protocols for pressure ulcer prophylaxis - Monitor hemodynamics closely - continue other care per attending / other consultants - discharge planning ongoing concurrently COVID SPECIFIC INTERVENTIONS - Actemra ordered if available - Remdesivir as per ID/Pulmonary developed protocols (not a candidate) - continue systemic steroids for severe COVID-19 infection empirically - follow repeat COVID tests results - zinc and vitamin C supplementation - Monitor inflammatory markers per facility protocol - ferritin, Ddimer, CRP - therapeutic anticoagulation per system Protocol based on d-dimer and clinical considerations (VTE prophylaxis) - Continue contact and airborne isolation .... Re-evaluate in am & prn CONDITION: CRITICAL PROGNOSIS: GUARDED CODE STATUS: FULL CODE The high probability of a clinically significant, sudden or life-threatening deterioration of the [respiratory, cardiovascular, renal & neurologic] system(s) required my full and direct attention, intervention and personal management. The aggregate critical care time was [32] minutes without overlap. Time includes spent on; [x] Data Review and interpretation [x] Patient assessment and monitoring of vital signs [x] Documentation [x] Medication orders and management Subjective Date of service: 03/29/21 Principal diagnosis: Ac hypoxemic resp failure; AE-Asthma; SAI; Crohn's; COVID- 19; Pneumonia Interval history: Patient is seen today for: Acute hypoxemic respiratory failure; AE-Asthma; SAI; Crohn's disease; COVID-19 infection; Pneumonia (CAP) Seen and examined at bedside; 24hour events reviewed; nursing and respiratory care staff consulted; no adverse overnight events reported to me; resting in bed; remains on MVS; has been febrile on & off and on a cooling blanket now; FiO2 remains at 50% with peep at 10; upper body rash a little better today; no gross bleeding post transfusion Objective Vital Signs - 12hr 03/29/21 03/29/21 03/29/21 01:00 01:15 01:30 Temperature Pulse Rate 119 H 119 H 118 H Pulse Rate [ Anterior Bilateral Throughout] Pulse Rate [ From Monitor] Respiratory 34 H 30 H 24 Rate Respiratory Rate [Anterior Bilateral Throughout] Blood Pressure 98/44 107/34 107/34 O2 Sat by Pulse 98 99 100 Oximetry 03/29/21 03/29/21 03/29/21 01:45 02:00 02:15 Temperature Pulse Rate 121 H 120 H 121 H Pulse Rate [ Anterior Bilateral Throughout] Pulse Rate [ From Monitor] Respiratory 34 H 29 H 38 H Rate Respiratory Rate [Anterior Bilateral Throughout] Blood Pressure 91/41 100/31 107/41 O2 Sat by Pulse 96 99 99 Oximetry 03/29/21 03/29/21 03/29/21 02:30 02:46 03:00 Temperature Pulse Rate 121 H 121 H 123 H Pulse Rate [ Anterior Bilateral Throughout] Pulse Rate [ From Monitor] Respiratory 35 H 34 H 38 H Rate Respiratory Rate [Anterior Bilateral Throughout] Blood Pressure 106/36 94/35 94/35 O2 Sat by Pulse 99 100 99 Oximetry 03/29/21 03/29/21 03/29/21 03:16 03:25 03:30 Temperature 103.5 F H Pulse Rate 123 H 124 H Pulse Rate [ Anterior Bilateral Throughout] Pulse Rate [ From Monitor] Respiratory 39 H 22 Rate Respiratory Rate [Anterior Bilateral Throughout] Blood Pressure 100/45 125/33 O2 Sat by Pulse 100 99 Oximetry 03/29/21 03/29/21 03/29/21 03:46 04:00 04:16 Temperature Pulse Rate 129 H 131 H 131 H Pulse Rate [ Anterior Bilateral Throughout] Pulse Rate [ 123 H From Monitor] Respiratory 30 H 38 H Rate Respiratory Rate [Anterior Bilateral Throughout] Blood Pressure 117/31 117/31 102/57 O2 Sat by Pulse 95 100 99 Oximetry 03/29/21 03/29/21 03/29/21 04:28 04:30 04:46 Temperature Pulse Rate 132 H 128 H 135 H Pulse Rate [ Anterior Bilateral Throughout] Pulse Rate [ From Monitor] Respiratory 38 H 37 H Rate Respiratory Rate [Anterior Bilateral Throughout] Blood Pressure 102/57 110/62 82/25 O2 Sat by Pulse 99 99 98 Oximetry 03/29/21 03/29/21 03/29/21 05:00 05:16 05:30 Temperature Pulse Rate 130 H 133 H 133 H Pulse Rate [ Anterior Bilateral Throughout] Pulse Rate [ From Monitor] Respiratory 37 H 39 H 37 H Rate Respiratory Rate [Anterior Bilateral Throughout] Blood Pressure 109/59 123/81 123/81 O2 Sat by Pulse 99 100 99 Oximetry 03/29/21 03/29/21 03/29/21 05:46 06:00 06:16 Temperature Pulse Rate 130 H 130 H 129 H Pulse Rate [ Anterior Bilateral Throughout] Pulse Rate [ From Monitor] Respiratory 39 H 39 H 33 H Rate Respiratory Rate [Anterior Bilateral Throughout] Blood Pressure 74/56 74/56 137/71 O2 Sat by Pulse 98 99 98 Oximetry 03/29/21 03/29/21 03/29/21 06:30 06:45 07:00 Temperature Pulse Rate 128 H 131 H 127 H Pulse Rate [ Anterior Bilateral Throughout] Pulse Rate [ From Monitor] Respiratory 36 H 35 H 32 H Rate Respiratory Rate [Anterior Bilateral Throughout] Blood Pressure 141/88 135/84 135/84 O2 Sat by Pulse 98 98 99 Oximetry 03/29/21 03/29/21 03/29/21 07:16 07:30 07:46 Temperature Pulse Rate 134 H 129 H 127 H Pulse Rate [ Anterior Bilateral Throughout] Pulse Rate [ From Monitor] Respiratory 40 H 38 H 35 H Rate Respiratory Rate [Anterior Bilateral Throughout] Blood Pressure 128/102 128/102 116/39 O2 Sat by Pulse 97 96 97 Oximetry 03/29/21 03/29/21 03/29/21 08:00 08:16 08:30 Temperature 102.1 F H Pulse Rate 126 H 123 H 123 H Pulse Rate [ Anterior Bilateral Throughout] Pulse Rate [ 126 H From Monitor] Respiratory 26 H 35 H 34 H Rate Respiratory Rate [Anterior Bilateral Throughout] Blood Pressure 150/111 115/40 102/83 O2 Sat by Pulse 96 97 97 Oximetry 03/29/21 03/29/21 03/29/21 08:46 09:00 09:03 Temperature Pulse Rate 123 H 124 H 127 H Pulse Rate [ Anterior Bilateral Throughout] Pulse Rate [ From Monitor] Respiratory 36 H 38 H Rate Respiratory Rate [Anterior Bilateral Throughout] Blood Pressure 101/68 123/98 O2 Sat by Pulse 97 99 97 Oximetry 03/29/21 03/29/21 03/29/21 09:15 09:16 09:30 Temperature Pulse Rate 125 H 126 H Pulse Rate [ 130 H Anterior Bilateral Throughout] Pulse Rate [ From Monitor] Respiratory 41 H 40 H Rate Respiratory 36 H Rate [Anterior Bilateral Throughout] Blood Pressure 123/98 101/68 O2 Sat by Pulse 99 99 Oximetry 03/29/21 03/29/21 03/29/21 09:46 10:00 10:16 Temperature Pulse Rate 120 H 120 H 124 H Pulse Rate [ Anterior Bilateral Throughout] Pulse Rate [ From Monitor] Respiratory 41 H 40 H 41 H Rate Respiratory Rate [Anterior Bilateral Throughout] Blood Pressure 141/42 141/42 117/51 O2 Sat by Pulse 99 99 99 Oximetry Constitutional: appears uncomfortable, other (morbidly obese female with mild ventilator dyssynchrony) Eyes: non-icteric, other (scleral erythema / bleeding is improving) ENT: oropharynx moist, other (ETT 25 cm BALJINDER) Neck: supple, no lymphadenopathy, no JVD, other (large circumference) Effort: mildly labored Ascultation: Bilateral: diminished breath sounds, rhonchi Percussion: Bilateral: not dull Cardiovascular: regular rate and rhythm Gastrointestinal: normoactive bowel sounds, soft, non-tender, non-distended (protuberant) Integumentary: rash (to upper chest, neck and face), other Extremities: no cyanosis, no edema, pulses normal, no ischemia or petechiae Neurologic: non-focal exam (grossly), pupils equal and round, CN II-XII normal, motor strength normal and, other (moves all extremities spontaneously) Psychiatric: other (unasble to assess) CBC and BMP: 03/29/21 04:45 03/29/21 04:45 ABG, PT/INR, D-dimer: ABG ABG pH 7.258 pH Units (7.350-7.450) L 03/29/21 Unknown POC ABG pCO2 41.5 mmHg (32.0-48.0) 03/28/21 21:08 ABG pCO2 50.6 mm Hg 03/29/21 Unknown POC ABG pO2 80.5 mmHg (83-108) L 03/28/21 21:08 ABG pO2 84.9 mm Hg (80.0-90.0) 03/29/21 Unknown POC ABG HCO3 21.7 03/28/21 21:08 ABG O2 Saturation 95.9 % (95.0-99.0) 03/29/21 Unknown PT/INR, D-dimer PT 15.8 Sec. (12.2-14.9) H 03/22/21 13:40 INR 1.14 (0.87-1.13) H 03/22/21 13:40 D-Dimer > 45134 ng/mlDDU (0-234) H 03/22/21 13:40 Abnormal lab findings: Abnormal Labs 03/13/21 03/13/21 03/13/21 13:26 13:26 15:40 WBC RBC Hgb Hct MCH 27 L RDW 17.0 H Plt Count Lymph % (Auto) Ellis # (Auto) Eos # (Auto) Seg Neutrophils % Seg Neutrophils # PT INR D-Dimer ABG pH POC ABG pCO2 POC ABG pO2 ABG pO2 ABG HCO3 ABG O2 Saturation ABG Base Excess ABG Hemoglobin ABG Oxyhemoglobin ABG Sodium ABG Potassium ABG Glucose Oxyhemoglobin Carboxyhemoglobin Sodium 136 L Potassium Chloride Carbon Dioxide BUN Creatinine Glucose 125 H 130 H POC Glucose Hemoglobin A1c Calcium Phosphorus Magnesium Lactate Dehydrogenase 235 H C-Reactive Protein 4.30 H Total Protein Albumin Triglycerides Arterial Blood Glucose Arterial Blood Ionized Calcium Urine Creatinine Random Vancomycin Coronavirus (PCR) Crossmatch 03/13/21 03/14/21 03/14/21 21:33 03:35 06:21 WBC 20.0 H RBC Hgb Hct MCH 27 L RDW 17.5 H Plt Count Lymph % (Auto) 7.8 L Ellis # (Auto) 1.3 H Eos # (Auto) Seg Neutrophils % 85.4 H Seg Neutrophils # 17.1 H PT INR D-Dimer ABG pH 7.323 L 7.234 L POC ABG pCO2 POC ABG pO2 ABG pO2 69.8 L ABG HCO3 ABG O2 Saturation 92.9 L 94.9 L ABG Base Excess -3.3 L -5.4 L ABG Hemoglobin ABG Oxyhemoglobin ABG Sodium ABG Potassium ABG Glucose Oxyhemoglobin 91.2 L 93.2 L Carboxyhemoglobin Sodium Potassium Chloride Carbon Dioxide BUN Creatinine Glucose POC Glucose Hemoglobin A1c Calcium Phosphorus Magnesium Lactate Dehydrogenase C-Reactive Protein Total Protein Albumin Triglycerides Arterial Blood Glucose Arterial Blood Ionized Calcium Urine Creatinine Random Vancomycin Coronavirus (PCR) Crossmatch 03/14/21 03/14/21 03/14/21 06:21 07:47 11:21 WBC RBC Hgb Hct MCH RDW Plt Count Lymph % (Auto) Ellis # (Auto) Eos # (Auto) Seg Neutrophils % Seg Neutrophils # PT INR D-Dimer ABG pH POC ABG pCO2 POC ABG pO2 ABG pO2 ABG HCO3 ABG O2 Saturation ABG Base Excess ABG Hemoglobin ABG Oxyhemoglobin ABG Sodium ABG Potassium ABG Glucose Oxyhemoglobin Carboxyhemoglobin Sodium 136 L 136 L Potassium 6.2 H* D 5.4 H Chloride Carbon Dioxide 21 L 21 L BUN Creatinine 1.5 H D 1.8 H Glucose 144 H 141 H POC Glucose 147 H Hemoglobin A1c Calcium Phosphorus Magnesium Lactate Dehydrogenase C-Reactive Protein Total Protein 8.7 H 9.2 H Albumin 3.8 L Triglycerides Arterial Blood Glucose Arterial Blood Ionized Calcium Urine Creatinine Random Vancomycin Coronavirus (PCR) Crossmatch 03/14/21 03/14/21 03/14/21 17:29 17:50 18:35 WBC RBC Hgb Hct MCH RDW Plt Count Lymph % (Auto) Ellis # (Auto) Eos # (Auto) Seg Neutrophils % Seg Neutrophils # PT INR D-Dimer ABG pH POC ABG pCO2 POC ABG pO2 ABG pO2 ABG HCO3 ABG O2 Saturation ABG Base Excess ABG Hemoglobin ABG Oxyhemoglobin ABG Sodium ABG Potassium ABG Glucose Oxyhemoglobin Carboxyhemoglobin Sodium 135 L Potassium 6.4 H* Chloride Carbon Dioxide 15 L BUN 26 H Creatinine 3.4 H D Glucose 165 H POC Glucose 209 H Hemoglobin A1c Calcium Phosphorus Magnesium Lactate Dehydrogenase C-Reactive Protein Total Protein Albumin Triglycerides Arterial Blood Glucose Arterial Blood Ionized Calcium Urine Creatinine 40.1 H Random Vancomycin Coronavirus (PCR) Crossmatch 03/14/21 03/14/21 03/14/21 18:46 22:23 23:52 WBC RBC Hgb Hct MCH RDW Plt Count Lymph % (Auto) Ellis # (Auto) Eos # (Auto) Seg Neutrophils % Seg Neutrophils # PT INR D-Dimer ABG pH 7.270 L POC ABG pCO2 POC ABG pO2 63.4 L ABG pO2 ABG HCO3 ABG O2 Saturation ABG Base Excess ABG Hemoglobin ABG Oxyhemoglobin 90.2 L ABG Sodium 134.9 L ABG Potassium 5.3 H ABG Glucose 134 H Oxyhemoglobin Carboxyhemoglobin Sodium 136 L Potassium 5.2 H Chloride Carbon Dioxide 20 L BUN 29 H Creatinine 3.6 H Glucose 236 H POC Glucose 128 H Hemoglobin A1c Calcium Phosphorus Magnesium Lactate Dehydrogenase C-Reactive Protein Total Protein Albumin 3.2 L Triglycerides Arterial Blood Glucose 134 H Arterial Blood Ionized Calcium Urine Creatinine Random Vancomycin Coronavirus (PCR) Crossmatch 03/14/21 03/15/21 03/15/21 Unknown 05:00 05:09 WBC 22.5 H RBC Hgb Hct MCH 27 L RDW 17.6 H Plt Count Lymph % (Auto) Ellis # (Auto) Eos # (Auto) Seg Neutrophils % Seg Neutrophils # PT INR D-Dimer ABG pH POC ABG pCO2 POC ABG pO2 ABG pO2 ABG HCO3 ABG O2 Saturation ABG Base Excess ABG Hemoglobin ABG Oxyhemoglobin ABG Sodium ABG Potassium ABG Glucose Oxyhemoglobin Carboxyhemoglobin Sodium Potassium Chloride Carbon Dioxide BUN Creatinine Glucose POC Glucose 116 H Hemoglobin A1c Calcium Phosphorus Magnesium Lactate Dehydrogenase C-Reactive Protein Total Protein Albumin Triglycerides Arterial Blood Glucose Arterial Blood Ionized Calcium Urine Creatinine Random Vancomycin Coronavirus (PCR) Positive A Crossmatch 03/15/21 03/15/21 03/15/21 05:09 05:09 05:09 WBC RBC Hgb Hct MCH RDW Plt Count Lymph % (Auto) Ellis # (Auto) Eos # (Auto) Seg Neutrophils % Seg Neutrophils # PT INR D-Dimer ABG pH POC ABG pCO2 POC ABG pO2 ABG pO2 ABG HCO3 ABG O2 Saturation ABG Base Excess ABG Hemoglobin ABG Oxyhemoglobin ABG Sodium ABG Potassium ABG Glucose Oxyhemoglobin Carboxyhemoglobin Sodium 136 L Potassium 6.5 H* D Chloride Carbon Dioxide 17 L BUN 41 H Creatinine 5.3 H Glucose 128 H POC Glucose Hemoglobin A1c 6.3 H Calcium Phosphorus Magnesium Lactate Dehydrogenase C-Reactive Protein 12.10 H Total Protein Albumin 3.1 L Triglycerides Arterial Blood Glucose Arterial Blood Ionized Calcium Urine Creatinine Random Vancomycin Coronavirus (PCR) Crossmatch 03/15/21 03/15/21 03/15/21 10:00 21:50 23:39 WBC RBC Hgb Hct MCH RDW Plt Count Lymph % (Auto) Ellis # (Auto) Eos # (Auto) Seg Neutrophils % Seg Neutrophils # PT INR D-Dimer ABG pH 7.098 L POC ABG pCO2 72.7 H POC ABG pO2 ABG pO2 162.5 H ABG HCO3 ABG O2 Saturation ABG Base Excess ABG Hemoglobin 10.1 L ABG Oxyhemoglobin ABG Sodium ABG Potassium 5.7 H ABG Glucose Oxyhemoglobin Carboxyhemoglobin 0.4 L Sodium Potassium Chloride Carbon Dioxide BUN Creatinine Glucose POC Glucose 156 H Hemoglobin A1c Calcium Phosphorus Magnesium Lactate Dehydrogenase C-Reactive Protein Total Protein Albumin Triglycerides Arterial Blood Glucose Arterial Blood Ionized Calcium Urine Creatinine Random Vancomycin Coronavirus (PCR) Crossmatch 03/16/21 03/16/21 03/16/21 05:00 05:30 05:30 WBC 16.7 H RBC 3.59 L Hgb 9.6 L Hct 30.1 L MCH 27 L RDW 17.5 H Plt Count Lymph % (Auto) Ellis # (Auto) Eos # (Auto) Seg Neutrophils % Seg Neutrophils # PT INR D-Dimer ABG pH POC ABG pCO2 POC ABG pO2 ABG pO2 ABG HCO3 ABG O2 Saturation ABG Base Excess ABG Hemoglobin ABG Oxyhemoglobin ABG Sodium ABG Potassium ABG Glucose Oxyhemoglobin Carboxyhemoglobin Sodium Potassium Chloride Carbon Dioxide BUN 46 H Creatinine 6.2 H Glucose 131 H POC Glucose Hemoglobin A1c Calcium Phosphorus 6.00 H D Magnesium Lactate Dehydrogenase 318 H C-Reactive Protein 18.60 H Total Protein Albumin 3.0 L Triglycerides Arterial Blood Glucose Arterial Blood Ionized Calcium Urine Creatinine Random Vancomycin Coronavirus (PCR) Crossmatch 03/16/21 03/16/21 03/16/21 05:51 06:37 08:58 WBC RBC Hgb Hct MCH RDW Plt Count Lymph % (Auto) Ellis # (Auto) Eos # (Auto) Seg Neutrophils % Seg Neutrophils # PT INR D-Dimer 3041.12 H ABG pH POC ABG pCO2 POC ABG pO2 ABG pO2 141.5 H ABG HCO3 ABG O2 Saturation ABG Base Excess ABG Hemoglobin 9.7 L ABG Oxyhemoglobin ABG Sodium ABG Potassium ABG Glucose Oxyhemoglobin Carboxyhemoglobin Sodium Potassium Chloride Carbon Dioxide BUN Creatinine Glucose POC Glucose 126 H Hemoglobin A1c Calcium Phosphorus Magnesium Lactate Dehydrogenase C-Reactive Protein Total Protein Albumin Triglycerides Arterial Blood Glucose Arterial Blood Ionized Calcium Urine Creatinine Random Vancomycin Coronavirus (PCR) Crossmatch 03/16/21 03/16/21 03/16/21 12:11 16:51 21:00 WBC RBC Hgb Hct MCH RDW Plt Count Lymph % (Auto) Ellis # (Auto) Eos # (Auto) Seg Neutrophils % Seg Neutrophils # PT INR D-Dimer ABG pH 7.239 L POC ABG pCO2 61.5 H POC ABG pO2 80.8 L ABG pO2 ABG HCO3 ABG O2 Saturation ABG Base Excess ABG Hemoglobin 11.4 L ABG Oxyhemoglobin 93.5 L ABG Sodium ABG Potassium 5.4 H ABG Glucose 137 H Oxyhemoglobin Carboxyhemoglobin 0.2 L Sodium Potassium Chloride Carbon Dioxide BUN Creatinine Glucose POC Glucose 156 H 133 H Hemoglobin A1c Calcium Phosphorus Magnesium Lactate Dehydrogenase C-Reactive Protein Total Protein Albumin Triglycerides Arterial Blood Glucose 137 H Arterial Blood Ionized Calcium Urine Creatinine Random Vancomycin Coronavirus (PCR) Crossmatch 03/16/21 03/17/21 03/17/21 23:42 05:23 05:23 WBC 18.4 H RBC Hgb Hct MCH 27 L RDW 17.4 H Plt Count Lymph % (Auto) Ellis # (Auto) Eos # (Auto) Seg Neutrophils % Seg Neutrophils # PT INR D-Dimer ABG pH POC ABG pCO2 POC ABG pO2 ABG pO2 ABG HCO3 ABG O2 Saturation ABG Base Excess ABG Hemoglobin ABG Oxyhemoglobin ABG Sodium ABG Potassium ABG Glucose Oxyhemoglobin Carboxyhemoglobin Sodium Potassium 5.2 H Chloride Carbon Dioxide 21 L BUN 79 H Creatinine 8.6 H Glucose 124 H POC Glucose 133 H Hemoglobin A1c Calcium Phosphorus Magnesium Lactate Dehydrogenase C-Reactive Protein Total Protein Albumin 3.2 L Triglycerides 285 H Arterial Blood Glucose Arterial Blood Ionized Calcium Urine Creatinine Random Vancomycin Coronavirus (PCR) Crossmatch 03/17/21 03/17/21 03/17/21 05:23 10:48 12:20 WBC RBC Hgb Hct MCH RDW Plt Count Lymph % (Auto) Ellis # (Auto) Eos # (Auto) Seg Neutrophils % Seg Neutrophils # PT INR D-Dimer ABG pH 7.294 L POC ABG pCO2 POC ABG pO2 ABG pO2 90.3 H ABG HCO3 ABG O2 Saturation ABG Base Excess ABG Hemoglobin 9.9 L ABG Oxyhemoglobin ABG Sodium ABG Potassium ABG Glucose Oxyhemoglobin Carboxyhemoglobin Sodium Potassium 5.2 H Chloride Carbon Dioxide 21 L BUN 79 H Creatinine 8.4 H Glucose 125 H POC Glucose 171 H Hemoglobin A1c Calcium Phosphorus 9.90 H D Magnesium 2.40 H Lactate Dehydrogenase C-Reactive Protein Total Protein Albumin Triglycerides Arterial Blood Glucose Arterial Blood Ionized Calcium Urine Creatinine Random Vancomycin Coronavirus (PCR) Crossmatch 03/17/21 03/17/21 03/18/21 17:24 21:00 04:30 WBC RBC Hgb Hct MCH RDW Plt Count Lymph % (Auto) Ellis # (Auto) Eos # (Auto) Seg Neutrophils % Seg Neutrophils # PT INR D-Dimer 9953.09 H ABG pH 7.310 L POC ABG pCO2 54.5 H POC ABG pO2 62.3 L ABG pO2 ABG HCO3 ABG O2 Saturation ABG Base Excess ABG Hemoglobin 10.2 L ABG Oxyhemoglobin 88.6 L ABG Sodium ABG Potassium 4.7 H ABG Glucose 99 H Oxyhemoglobin Carboxyhemoglobin 0.3 L Sodium Potassium Chloride Carbon Dioxide BUN Creatinine Glucose POC Glucose 121 H Hemoglobin A1c Calcium Phosphorus Magnesium Lactate Dehydrogenase C-Reactive Protein Total Protein Albumin Triglycerides Arterial Blood Glucose 99 H Arterial Blood Ionized Calcium 4.3 L Urine Creatinine Random Vancomycin Coronavirus (PCR) Crossmatch 03/18/21 03/18/21 03/18/21 04:30 04:30 11:34 WBC 12.8 H RBC 3.49 L Hgb 9.4 L Hct 29.3 L MCH 27 L RDW 17.4 H Plt Count Lymph % (Auto) Ellis # (Auto) Eos # (Auto) Seg Neutrophils % Seg Neutrophils # PT INR D-Dimer ABG pH POC ABG pCO2 POC ABG pO2 ABG pO2 ABG HCO3 ABG O2 Saturation ABG Base Excess ABG Hemoglobin ABG Oxyhemoglobin ABG Sodium ABG Potassium ABG Glucose Oxyhemoglobin Carboxyhemoglobin Sodium Potassium Chloride Carbon Dioxide BUN 69 H Creatinine 7.3 H Glucose POC Glucose 114 H Hemoglobin A1c Calcium 8.2 L Phosphorus 7.60 H D Magnesium Lactate Dehydrogenase 477 H C-Reactive Protein 6.90 H Total Protein Albumin Triglycerides Arterial Blood Glucose Arterial Blood Ionized Calcium Urine Creatinine Random Vancomycin Coronavirus (PCR) Crossmatch 03/18/21 03/19/21 03/19/21 21:44 04:13 04:13 WBC 13.7 H RBC 3.32 L Hgb 9.0 L Hct 28.1 L MCH 27 L RDW 16.9 H Plt Count Lymph % (Auto) Ellis # (Auto) Eos # (Auto) Seg Neutrophils % Seg Neutrophils # PT INR D-Dimer ABG pH 7.290 L POC ABG pCO2 POC ABG pO2 ABG pO2 119.7 H ABG HCO3 28.0 H ABG O2 Saturation ABG Base Excess ABG Hemoglobin 9.6 L ABG Oxyhemoglobin ABG Sodium ABG Potassium ABG Glucose Oxyhemoglobin Carboxyhemoglobin Sodium Potassium Chloride Carbon Dioxide BUN Creatinine Glucose POC Glucose Hemoglobin A1c Calcium Phosphorus Magnesium Lactate Dehydrogenase C-Reactive Protein Total Protein Albumin Triglycerides Arterial Blood Glucose Arterial Blood Ionized Calcium Urine Creatinine Random Vancomycin 43.5 H Coronavirus (PCR) Crossmatch 03/19/21 03/19/21 03/19/21 04:13 05:59 11:40 WBC RBC Hgb Hct MCH RDW Plt Count Lymph % (Auto) Ellis # (Auto) Eos # (Auto) Seg Neutrophils % Seg Neutrophils # PT INR D-Dimer ABG pH POC ABG pCO2 POC ABG pO2 ABG pO2 ABG HCO3 ABG O2 Saturation ABG Base Excess ABG Hemoglobin ABG Oxyhemoglobin ABG Sodium ABG Potassium ABG Glucose Oxyhemoglobin Carboxyhemoglobin Sodium Potassium Chloride Carbon Dioxide BUN 55 H Creatinine 7.0 H Glucose POC Glucose 116 H 145 H Hemoglobin A1c Calcium 8.1 L Phosphorus 7.90 H Magnesium Lactate Dehydrogenase C-Reactive Protein Total Protein Albumin Triglycerides Arterial Blood Glucose Arterial Blood Ionized Calcium Urine Creatinine Random Vancomycin Coronavirus (PCR) Crossmatch 03/19/21 03/19/21 03/20/21 17:01 23:41 04:00 WBC 15.6 H RBC 3.55 L Hgb 9.6 L Hct MCH 27 L RDW 16.8 H Plt Count 139 L Lymph % (Auto) Ellis # (Auto) Eos # (Auto) Seg Neutrophils % Seg Neutrophils # PT INR D-Dimer ABG pH POC ABG pCO2 POC ABG pO2 ABG pO2 ABG HCO3 ABG O2 Saturation ABG Base Excess ABG Hemoglobin ABG Oxyhemoglobin ABG Sodium ABG Potassium ABG Glucose Oxyhemoglobin Carboxyhemoglobin Sodium Potassium Chloride Carbon Dioxide BUN Creatinine Glucose POC Glucose 111 H 118 H Hemoglobin A1c Calcium Phosphorus Magnesium Lactate Dehydrogenase C-Reactive Protein Total Protein Albumin Triglycerides Arterial Blood Glucose Arterial Blood Ionized Calcium Urine Creatinine Random Vancomycin Coronavirus (PCR) Crossmatch 03/20/21 03/20/21 03/20/21 04:00 04:00 04:37 WBC RBC Hgb Hct MCH RDW Plt Count Lymph % (Auto) Ellis # (Auto) Eos # (Auto) Seg Neutrophils % Seg Neutrophils # PT INR D-Dimer > 93772 H ABG pH 7.306 L POC ABG pCO2 POC ABG pO2 ABG pO2 ABG HCO3 27.9 H ABG O2 Saturation ABG Base Excess ABG Hemoglobin 5.2 L ABG Oxyhemoglobin ABG Sodium ABG Potassium ABG Glucose Oxyhemoglobin Carboxyhemoglobin Sodium Potassium 5.2 H Chloride 97.6 L Carbon Dioxide BUN 52 H Creatinine 6.2 H Glucose 104 H POC Glucose Hemoglobin A1c Calcium Phosphorus 8.60 H Magnesium Lactate Dehydrogenase C-Reactive Protein 6.90 H Total Protein Albumin Triglycerides Arterial Blood Glucose Arterial Blood Ionized Calcium Urine Creatinine Random Vancomycin Coronavirus (PCR) Crossmatch 03/20/21 03/20/21 03/20/21 13:50 17:46 17:56 WBC RBC Hgb Hct MCH RDW Plt Count Lymph % (Auto) Ellis # (Auto) Eos # (Auto) Seg Neutrophils % Seg Neutrophils # PT INR D-Dimer ABG pH POC ABG pCO2 POC ABG pO2 ABG pO2 ABG HCO3 ABG O2 Saturation ABG Base Excess ABG Hemoglobin ABG Oxyhemoglobin ABG Sodium ABG Potassium ABG Glucose Oxyhemoglobin Carboxyhemoglobin Sodium Potassium Chloride Carbon Dioxide BUN 63 H 43 H Creatinine Glucose POC Glucose 145 H Hemoglobin A1c Calcium Phosphorus Magnesium Lactate Dehydrogenase C-Reactive Protein Total Protein Albumin Triglycerides Arterial Blood Glucose Arterial Blood Ionized Calcium Urine Creatinine Random Vancomycin Coronavirus (PCR) Crossmatch 03/20/21 03/21/21 03/21/21 23:18 06:58 06:58 WBC 14.4 H RBC 3.41 L Hgb 9.5 L Hct 28.6 L MCH RDW 17.4 H Plt Count 107 L Lymph % (Auto) Ellis # (Auto) Eos # (Auto) Seg Neutrophils % Seg Neutrophils # PT INR D-Dimer ABG pH POC ABG pCO2 POC ABG pO2 ABG pO2 ABG HCO3 ABG O2 Saturation ABG Base Excess ABG Hemoglobin ABG Oxyhemoglobin ABG Sodium ABG Potassium ABG Glucose Oxyhemoglobin Carboxyhemoglobin Sodium Potassium Chloride Carbon Dioxide BUN 60 H Creatinine 7.7 H Glucose POC Glucose 106 H Hemoglobin A1c Calcium Phosphorus Magnesium Lactate Dehydrogenase C-Reactive Protein Total Protein Albumin Triglycerides Arterial Blood Glucose Arterial Blood Ionized Calcium Urine Creatinine Random Vancomycin Coronavirus (PCR) Crossmatch 03/21/21 03/21/21 03/21/21 11:11 18:04 Unknown WBC RBC Hgb Hct MCH RDW Plt Count Lymph % (Auto) Ellis # (Auto) Eos # (Auto) Seg Neutrophils % Seg Neutrophils # PT INR D-Dimer ABG pH 7.270 L POC ABG pCO2 58.7 H POC ABG pO2 76.9 L ABG pO2 ABG HCO3 ABG O2 Saturation ABG Base Excess ABG Hemoglobin 9.9 L ABG Oxyhemoglobin 92.4 L ABG Sodium 135.8 L ABG Potassium 4.6 H ABG Glucose Oxyhemoglobin Carboxyhemoglobin 0.1 L Sodium Potassium Chloride Carbon Dioxide BUN Creatinine Glucose POC Glucose 109 H 141 H Hemoglobin A1c Calcium Phosphorus Magnesium Lactate Dehydrogenase C-Reactive Protein Total Protein Albumin Triglycerides Arterial Blood Glucose Arterial Blood Ionized Calcium 4.5 L Urine Creatinine Random Vancomycin Coronavirus (PCR) Crossmatch 03/22/21 03/22/21 03/22/21 03:09 07:10 10:00 WBC RBC Hgb Hct MCH RDW Plt Count Lymph % (Auto) Ellis # (Auto) Eos # (Auto) Seg Neutrophils % Seg Neutrophils # PT INR D-Dimer ABG pH 7.206 L 7.245 L POC ABG pCO2 55.6 H POC ABG pO2 ABG pO2 90.6 H ABG HCO3 ABG O2 Saturation ABG Base Excess -4.4 L ABG Hemoglobin 9.0 L 8.4 L ABG Oxyhemoglobin ABG Sodium 123.4 L ABG Potassium 5.6 H ABG Glucose 106 H Oxyhemoglobin 94.5 L Carboxyhemoglobin 0.1 L Sodium Potassium 5.4 H Chloride 96.8 L Carbon Dioxide BUN 89 H Creatinine 8.7 H Glucose 131 H POC Glucose Hemoglobin A1c Calcium Phosphorus Magnesium Lactate Dehydrogenase C-Reactive Protein 9.40 H Total Protein Albumin Triglycerides Arterial Blood Glucose 106 H Arterial Blood Ionized Calcium Urine Creatinine Random Vancomycin Coronavirus (PCR) Crossmatch 03/22/21 03/22/21 03/22/21 10:00 12:37 13:19 WBC RBC 3.05 L Hgb 8.4 L Hct 25.5 L MCH RDW 17.5 H Plt Count 108 L Lymph % (Auto) Ellis # (Auto) Eos # (Auto) Seg Neutrophils % Seg Neutrophils # PT INR D-Dimer ABG pH POC ABG pCO2 POC ABG pO2 ABG pO2 ABG HCO3 ABG O2 Saturation ABG Base Excess ABG Hemoglobin ABG Oxyhemoglobin ABG Sodium ABG Potassium ABG Glucose Oxyhemoglobin Carboxyhemoglobin Sodium Potassium Chloride Carbon Dioxide BUN Creatinine 8.7 H Glucose POC Glucose 140 H Hemoglobin A1c Calcium Phosphorus Magnesium Lactate Dehydrogenase C-Reactive Protein Total Protein Albumin Triglycerides Arterial Blood Glucose Arterial Blood Ionized Calcium Urine Creatinine Random Vancomycin Coronavirus (PCR) Crossmatch 03/22/21 03/22/21 03/22/21 13:40 17:14 18:21 WBC RBC Hgb Hct MCH RDW Plt Count Lymph % (Auto) Ellis # (Auto) Eos # (Auto) Seg Neutrophils % Seg Neutrophils # PT 15.8 H INR 1.14 H D-Dimer > 73857 H ABG pH POC ABG pCO2 POC ABG pO2 ABG pO2 ABG HCO3 ABG O2 Saturation ABG Base Excess ABG Hemoglobin ABG Oxyhemoglobin ABG Sodium ABG Potassium ABG Glucose Oxyhemoglobin Carboxyhemoglobin Sodium Potassium Chloride Carbon Dioxide BUN Creatinine Glucose POC Glucose 117 H 112 H Hemoglobin A1c Calcium Phosphorus Magnesium Lactate Dehydrogenase C-Reactive Protein Total Protein Albumin Triglycerides Arterial Blood Glucose Arterial Blood Ionized Calcium Urine Creatinine Random Vancomycin Coronavirus (PCR) Crossmatch 03/22/21 03/22/21 03/23/21 21:25 22:57 04:30 WBC RBC Hgb Hct MCH RDW Plt Count Lymph % (Auto) Ellis # (Auto) Eos # (Auto) Seg Neutrophils % Seg Neutrophils # PT INR D-Dimer ABG pH 7.188 L* POC ABG pCO2 POC ABG pO2 ABG pO2 97.9 H ABG HCO3 ABG O2 Saturation ABG Base Excess -3.7 L ABG Hemoglobin 9.2 L ABG Oxyhemoglobin ABG Sodium ABG Potassium ABG Glucose Oxyhemoglobin 94.4 L Carboxyhemoglobin Sodium Potassium Chloride Carbon Dioxide BUN Creatinine Glucose POC Glucose 106 H Hemoglobin A1c Calcium Phosphorus Magnesium Lactate Dehydrogenase C-Reactive Protein Total Protein Albumin Triglycerides 381 H Arterial Blood Glucose Arterial Blood Ionized Calcium Urine Creatinine Random Vancomycin Coronavirus (PCR) Crossmatch 03/23/21 03/23/21 03/23/21 04:30 04:30 05:37 WBC 20.1 H RBC 3.17 L Hgb 8.6 L Hct 27.2 L MCH 27 L RDW 17.4 H Plt Count 118 L Lymph % (Auto) Ellis # (Auto) Eos # (Auto) Seg Neutrophils % Seg Neutrophils # PT INR D-Dimer ABG pH POC ABG pCO2 POC ABG pO2 ABG pO2 ABG HCO3 ABG O2 Saturation ABG Base Excess ABG Hemoglobin ABG Oxyhemoglobin ABG Sodium ABG Potassium ABG Glucose Oxyhemoglobin Carboxyhemoglobin Sodium Potassium 5.2 H Chloride 97.1 L Carbon Dioxide 21 L BUN 82 H Creatinine 9.1 H Glucose 109 H POC Glucose 130 H Hemoglobin A1c Calcium Phosphorus 10.80 H Magnesium 3.50 H Lactate Dehydrogenase C-Reactive Protein Total Protein Albumin Triglycerides Arterial Blood Glucose Arterial Blood Ionized Calcium Urine Creatinine Random Vancomycin Coronavirus (PCR) Crossmatch 03/23/21 03/23/21 03/23/21 08:44 11:30 16:09 WBC RBC Hgb Hct MCH RDW Plt Count Lymph % (Auto) Ellis # (Auto) Eos # (Auto) Seg Neutrophils % Seg Neutrophils # PT INR D-Dimer ABG pH 7.190 L POC ABG pCO2 57.9 H POC ABG pO2 79.2 L ABG pO2 ABG HCO3 ABG O2 Saturation ABG Base Excess ABG Hemoglobin 11.8 L ABG Oxyhemoglobin 92.3 L ABG Sodium 131.0 L ABG Potassium 5.0 H ABG Glucose 122 H Oxyhemoglobin Carboxyhemoglobin 0.4 L Sodium Potassium Chloride Carbon Dioxide BUN Creatinine Glucose POC Glucose 129 H 148 H Hemoglobin A1c Calcium Phosphorus Magnesium Lactate Dehydrogenase C-Reactive Protein Total Protein Albumin Triglycerides Arterial Blood Glucose 122 H Arterial Blood Ionized Calcium 4.4 L Urine Creatinine Random Vancomycin Coronavirus (PCR) Crossmatch 03/23/21 03/24/21 03/24/21 21:00 03:35 04:00 WBC 17.8 H RBC 2.96 L Hgb 8.1 L Hct 25.0 L MCH 27 L RDW 17.7 H Plt Count 124 L Lymph % (Auto) Ellis # (Auto) Eos # (Auto) Seg Neutrophils % Seg Neutrophils # PT INR D-Dimer ABG pH 7.223 L POC ABG pCO2 50.3 H POC ABG pO2 114.4 H ABG pO2 ABG HCO3 ABG O2 Saturation ABG Base Excess ABG Hemoglobin 8.8 L ABG Oxyhemoglobin ABG Sodium 130.4 L ABG Potassium 5.1 H ABG Glucose 126 H Oxyhemoglobin Carboxyhemoglobin 0.2 L Sodium Potassium Chloride Carbon Dioxide BUN Creatinine Glucose POC Glucose 148 H Hemoglobin A1c Calcium Phosphorus Magnesium Lactate Dehydrogenase C-Reactive Protein Total Protein Albumin Triglycerides Arterial Blood Glucose 126 H Arterial Blood Ionized Calcium 4.4 L Urine Creatinine Random Vancomycin Coronavirus (PCR) Crossmatch 03/24/21 03/24/21 03/24/21 04:00 06:49 12:29 WBC RBC Hgb Hct MCH RDW Plt Count Lymph % (Auto) Ellis # (Auto) Eos # (Auto) Seg Neutrophils % Seg Neutrophils # PT INR D-Dimer ABG pH POC ABG pCO2 POC ABG pO2 ABG pO2 ABG HCO3 ABG O2 Saturation ABG Base Excess ABG Hemoglobin ABG Oxyhemoglobin ABG Sodium ABG Potassium ABG Glucose Oxyhemoglobin Carboxyhemoglobin Sodium Potassium Chloride 95.6 L Carbon Dioxide 20 L BUN 108 H Creatinine 10.8 H Glucose 155 H POC Glucose 136 H 142 H Hemoglobin A1c Calcium Phosphorus Magnesium Lactate Dehydrogenase C-Reactive Protein Total Protein Albumin Triglycerides Arterial Blood Glucose Arterial Blood Ionized Calcium Urine Creatinine Random Vancomycin Coronavirus (PCR) Crossmatch 03/24/21 03/25/21 03/25/21 21:35 00:15 05:51 WBC RBC Hgb Hct MCH RDW Plt Count Lymph % (Auto) Ellis # (Auto) Eos # (Auto) Seg Neutrophils % Seg Neutrophils # PT INR D-Dimer ABG pH 7.241 L POC ABG pCO2 POC ABG pO2 ABG pO2 72.4 L ABG HCO3 ABG O2 Saturation 90.3 L ABG Base Excess ABG Hemoglobin 7.9 L ABG Oxyhemoglobin ABG Sodium ABG Potassium ABG Glucose Oxyhemoglobin 88.4 L Carboxyhemoglobin Sodium Potassium Chloride Carbon Dioxide BUN Creatinine Glucose POC Glucose 110 H 121 H Hemoglobin A1c Calcium Phosphorus Magnesium Lactate Dehydrogenase C-Reactive Protein Total Protein Albumin Triglycerides Arterial Blood Glucose Arterial Blood Ionized Calcium Urine Creatinine Random Vancomycin Coronavirus (PCR) Crossmatch 11/04/0403/25/21 03/25/21 05:54 05:54 12:21 WBC 12.4 H RBC 2.52 L Hgb 6.9 L Hct 21.1 L MCH RDW 17.4 H Plt Count 102 L Lymph % (Auto) Ellis # (Auto) Eos # (Auto) Seg Neutrophils % Seg Neutrophils # PT INR D-Dimer ABG pH POC ABG pCO2 POC ABG pO2 ABG pO2 ABG HCO3 ABG O2 Saturation ABG Base Excess ABG Hemoglobin ABG Oxyhemoglobin ABG Sodium ABG Potassium ABG Glucose Oxyhemoglobin Carboxyhemoglobin Sodium Potassium Chloride 96.7 L Carbon Dioxide BUN 81 H Creatinine 8.1 H Glucose 116 H POC Glucose 138 H Hemoglobin A1c Calcium 8.2 L Phosphorus Magnesium Lactate Dehydrogenase C-Reactive Protein Total Protein Albumin Triglycerides Arterial Blood Glucose Arterial Blood Ionized Calcium Urine Creatinine Random Vancomycin Coronavirus (PCR) Crossmatch 03/25/21 03/25/21 03/25/21 13:45 17:32 21:30 WBC RBC Hgb Hct MCH RDW Plt Count Lymph % (Auto) Ellis # (Auto) Eos # (Auto) Seg Neutrophils % Seg Neutrophils # PT INR D-Dimer ABG pH POC ABG pCO2 POC ABG pO2 ABG pO2 70.2 L ABG HCO3 ABG O2 Saturation ABG Base Excess ABG Hemoglobin 6.8 L ABG Oxyhemoglobin ABG Sodium ABG Potassium ABG Glucose Oxyhemoglobin 94.5 L Carboxyhemoglobin Sodium Potassium Chloride Carbon Dioxide BUN Creatinine Glucose POC Glucose 110 H Hemoglobin A1c Calcium Phosphorus Magnesium Lactate Dehydrogenase C-Reactive Protein Total Protein Albumin Triglycerides Arterial Blood Glucose Arterial Blood Ionized Calcium Urine Creatinine Random Vancomycin Coronavirus (PCR) Crossmatch See Detail 03/25/21 03/25/21 03/26/21 23:29 Unknown 05:15 WBC 12.4 H 14.0 H RBC 2.49 L 2.83 L Hgb 6.8 L 7.6 L Hct 20.9 L 23.6 L MCH 27 L 27 L RDW 18.0 H 17.1 H Plt Count 107 L 116 L Lymph % (Auto) Ellis # (Auto) Eos # (Auto) Seg Neutrophils % Seg Neutrophils # PT INR D-Dimer ABG pH POC ABG pCO2 POC ABG pO2 ABG pO2 ABG HCO3 ABG O2 Saturation ABG Base Excess ABG Hemoglobin ABG Oxyhemoglobin ABG Sodium ABG Potassium ABG Glucose Oxyhemoglobin Carboxyhemoglobin Sodium Potassium Chloride Carbon Dioxide BUN Creatinine Glucose POC Glucose 113 H Hemoglobin A1c Calcium Phosphorus Magnesium Lactate Dehydrogenase C-Reactive Protein Total Protein Albumin Triglycerides Arterial Blood Glucose Arterial Blood Ionized Calcium Urine Creatinine Random Vancomycin Coronavirus (PCR) Crossmatch 03/26/21 03/26/21 03/26/21 05:15 05:35 09:50 WBC RBC Hgb Hct MCH RDW Plt Count Lymph % (Auto) Ellis # (Auto) Eos # (Auto) Seg Neutrophils % Seg Neutrophils # PT INR D-Dimer ABG pH POC ABG pCO2 POC ABG pO2 ABG pO2 79.9 L ABG HCO3 ABG O2 Saturation ABG Base Excess ABG Hemoglobin 7.1 L ABG Oxyhemoglobin ABG Sodium ABG Potassium ABG Glucose Oxyhemoglobin 94.9 L Carboxyhemoglobin Sodium Potassium 3.4 L Chloride Carbon Dioxide BUN 70 H Creatinine 7.3 H Glucose 142 H POC Glucose 130 H Hemoglobin A1c Calcium 8.2 L Phosphorus Magnesium Lactate Dehydrogenase C-Reactive Protein Total Protein Albumin Triglycerides 254 H Arterial Blood Glucose Arterial Blood Ionized Calcium Urine Creatinine Random Vancomycin Coronavirus (PCR) Crossmatch 03/26/21 03/26/21 03/26/21 11:45 16:36 23:33 WBC RBC Hgb Hct MCH RDW Plt Count Lymph % (Auto) Ellis # (Auto) Eos # (Auto) Seg Neutrophils % Seg Neutrophils # PT INR D-Dimer ABG pH POC ABG pCO2 POC ABG pO2 ABG pO2 ABG HCO3 ABG O2 Saturation ABG Base Excess ABG Hemoglobin ABG Oxyhemoglobin ABG Sodium ABG Potassium ABG Glucose Oxyhemoglobin Carboxyhemoglobin Sodium Potassium Chloride Carbon Dioxide BUN Creatinine Glucose POC Glucose 123 H 121 H 120 H Hemoglobin A1c Calcium Phosphorus Magnesium Lactate Dehydrogenase C-Reactive Protein Total Protein Albumin Triglycerides Arterial Blood Glucose Arterial Blood Ionized Calcium Urine Creatinine Random Vancomycin Coronavirus (PCR) Crossmatch 03/27/21 03/27/21 03/27/21 03:20 04:14 08:20 WBC 13.2 H RBC 2.82 L Hgb 7.9 L Hct 23.5 L MCH RDW 17.3 H Plt Count 125 L Lymph % (Auto) Ellis # (Auto) Eos # (Auto) Seg Neutrophils % Seg Neutrophils # PT INR D-Dimer ABG pH POC ABG pCO2 50.0 H POC ABG pO2 58.3 L ABG pO2 ABG HCO3 ABG O2 Saturation ABG Base Excess ABG Hemoglobin 11.3 L ABG Oxyhemoglobin 88.5 L ABG Sodium ABG Potassium ABG Glucose 132 H Oxyhemoglobin Carboxyhemoglobin 0.2 L Sodium Potassium Chloride Carbon Dioxide BUN Creatinine Glucose POC Glucose 119 H Hemoglobin A1c Calcium Phosphorus Magnesium Lactate Dehydrogenase C-Reactive Protein Total Protein Albumin Triglycerides Arterial Blood Glucose 132 H Arterial Blood Ionized Calcium Urine Creatinine Random Vancomycin Coronavirus (PCR) Crossmatch 03/27/21 03/27/21 03/27/21 08:20 11:39 17:32 WBC RBC Hgb Hct MCH RDW Plt Count Lymph % (Auto) Ellis # (Auto) Eos # (Auto) Seg Neutrophils % Seg Neutrophils # PT INR D-Dimer ABG pH POC ABG pCO2 POC ABG pO2 ABG pO2 ABG HCO3 ABG O2 Saturation ABG Base Excess ABG Hemoglobin ABG Oxyhemoglobin ABG Sodium ABG Potassium ABG Glucose Oxyhemoglobin Carboxyhemoglobin Sodium Potassium Chloride Carbon Dioxide BUN 57 H Creatinine 6.8 H Glucose 131 H POC Glucose 121 H 126 H Hemoglobin A1c Calcium Phosphorus Magnesium Lactate Dehydrogenase C-Reactive Protein Total Protein Albumin Triglycerides Arterial Blood Glucose Arterial Blood Ionized Calcium Urine Creatinine Random Vancomycin Coronavirus (PCR) Crossmatch 03/28/21 03/28/21 03/28/21 00:10 04:45 05:25 WBC RBC Hgb Hct MCH RDW Plt Count Lymph % (Auto) Ellis # (Auto) Eos # (Auto) Seg Neutrophils % Seg Neutrophils # PT INR D-Dimer ABG pH POC ABG pCO2 POC ABG pO2 ABG pO2 57.6 L ABG HCO3 27.1 H ABG O2 Saturation 88.5 L ABG Base Excess ABG Hemoglobin ABG Oxyhemoglobin ABG Sodium ABG Potassium ABG Glucose Oxyhemoglobin 86.6 L Carboxyhemoglobin Sodium Potassium Chloride Carbon Dioxide BUN Creatinine Glucose POC Glucose 113 H 121 H Hemoglobin A1c Calcium Phosphorus Magnesium Lactate Dehydrogenase C-Reactive Protein Total Protein Albumin Triglycerides Arterial Blood Glucose Arterial Blood Ionized Calcium Urine Creatinine Random Vancomycin Coronavirus (PCR) Crossmatch 03/28/21 03/28/21 03/28/21 09:37 09:37 11:48 WBC 16.3 H RBC 2.92 L Hgb 8.2 L Hct 24.8 L MCH RDW 17.5 H Plt Count Lymph % (Auto) 10.7 L Ellis # (Auto) 0.9 H Eos # (Auto) 0.6 H Seg Neutrophils % 80.0 H Seg Neutrophils # 13.0 H PT INR D-Dimer ABG pH POC ABG pCO2 POC ABG pO2 ABG pO2 ABG HCO3 ABG O2 Saturation ABG Base Excess ABG Hemoglobin ABG Oxyhemoglobin ABG Sodium ABG Potassium ABG Glucose Oxyhemoglobin Carboxyhemoglobin Sodium Potassium Chloride Carbon Dioxide BUN 61 H Creatinine 7.7 H Glucose 148 H POC Glucose 123 H Hemoglobin A1c Calcium Phosphorus Magnesium Lactate Dehydrogenase C-Reactive Protein Total Protein Albumin Triglycerides Arterial Blood Glucose Arterial Blood Ionized Calcium Urine Creatinine Random Vancomycin Coronavirus (PCR) Crossmatch 03/28/21 03/28/21 03/28/21 17:33 21:08 23:38 WBC RBC Hgb Hct MCH RDW Plt Count Lymph % (Auto) Ellis # (Auto) Eos # (Auto) Seg Neutrophils % Seg Neutrophils # PT INR D-Dimer ABG pH POC ABG pCO2 POC ABG pO2 80.5 L ABG pO2 ABG HCO3 ABG O2 Saturation ABG Base Excess ABG Hemoglobin 9.5 L ABG Oxyhemoglobin ABG Sodium 133.3 L ABG Potassium ABG Glucose 134 H Oxyhemoglobin Carboxyhemoglobin 0.3 L Sodium Potassium Chloride Carbon Dioxide BUN Creatinine Glucose POC Glucose 128 H 112 H Hemoglobin A1c Calcium Phosphorus Magnesium Lactate Dehydrogenase C-Reactive Protein Total Protein Albumin Triglycerides Arterial Blood Glucose 134 H Arterial Blood Ionized Calcium Urine Creatinine Random Vancomycin Coronavirus (PCR) Crossmatch 03/29/21 03/29/21 03/29/21 04:45 04:45 04:45 WBC 17.5 H RBC 3.15 L Hgb 8.8 L Hct 27.2 L MCH RDW 17.9 H Plt Count 132 L Lymph % (Auto) Ellis # (Auto) Eos # (Auto) Seg Neutrophils % Seg Neutrophils # PT INR D-Dimer ABG pH POC ABG pCO2 POC ABG pO2 ABG pO2 ABG HCO3 ABG O2 Saturation ABG Base Excess ABG Hemoglobin ABG Oxyhemoglobin ABG Sodium ABG Potassium ABG Glucose Oxyhemoglobin Carboxyhemoglobin Sodium Potassium Chloride 97.7 L Carbon Dioxide 21 L BUN 78 H Creatinine 9.5 H Glucose 132 H POC Glucose Hemoglobin A1c Calcium Phosphorus Magnesium Lactate Dehydrogenase C-Reactive Protein Total Protein Albumin 2.2 L Triglycerides 385 H Arterial Blood Glucose Arterial Blood Ionized Calcium Urine Creatinine Random Vancomycin Coronavirus (PCR) Crossmatch 03/29/21 03/29/21 11:35 Unknown WBC RBC Hgb Hct MCH RDW Plt Count Lymph % (Auto) Ellis # (Auto) Eos # (Auto) Seg Neutrophils % Seg Neutrophils # PT INR D-Dimer ABG pH 7.258 L POC ABG pCO2 POC ABG pO2 ABG pO2 ABG HCO3 ABG O2 Saturation ABG Base Excess -4.9 L ABG Hemoglobin 8.8 L ABG Oxyhemoglobin ABG Sodium ABG Potassium ABG Glucose Oxyhemoglobin 93.9 L Carboxyhemoglobin Sodium Potassium Chloride Carbon Dioxide BUN Creatinine Glucose POC Glucose 148 H Hemoglobin A1c Calcium Phosphorus Magnesium Lactate Dehydrogenase C-Reactive Protein Total Protein Albumin Triglycerides Arterial Blood Glucose Arterial Blood Ionized Calcium Urine Creatinine Random Vancomycin Coronavirus (PCR) Crossmatch Allied health notes reviewed: nursing
[2021-03-29] MEDS ORDERED: ACETAMINOPHEN 325 MG/10.15 ML ORAL LIQD UNIT DOSE FEEDTUBE PRN (15:02)
[2021-03-29] MEDS ORDERED: predniSONE 5 MG TAB PO SCH (16:00)
[2021-03-29] MEDS: CEFEPIME/NS 2 GM/100 ML 2 GM/100 ML BAG IV SCH (16:56)
--- NOTE | 2021-03-29 18:43 | Progress Note ---
<SAMARACRISTY NancyEloisa - Last Filed: 03/29/21 18:56> Assessment and Plan Assessment and plan: This is a 31-year-old female with asthma, morbid obesity and Crohn's disease admitted for COVID-19 pneumonia and and acute renal failure Neuro: Sedated -Intubated and sedated on propofol and fentanyl -RASS goal 0 to -1 -Daily SAT/SBT when appropriate -Maintain sleep-wake cycle -Avoid delirium -Bilateral wrist restraints in place for safety CV: Tachycardia, s/p hypertension now with hypotension -ST on the monitor -Vasopressor support with levophed -Maintain MAP above 65 -Blood pressure monitoring per protocol Respiratory: Acute hypoxic respiratory failure, asthma exacerbation, COVID-19 pneumonia, ARDS, RUL PNA, bronchospasm (resolved) -DuoNeb, steroids -Patient was intubated on 03/14 for respiratory distress and inability to protect airway -Intubated with 7.50 ETT at 24 at the lip -A.m. vent settings: AC R 20, TV 450, Peep 20, Fio2 50% -See RT notes for titration -ABGs per CCM -CXR noted -VAP bundle -SPO2 monitoring -CCM/pulmonary consulted, appreciate recommendations -S/p BiPAP therapy GI: h/o MO and Crohn's disease -Nutrition consulted, appreciate recommendations -Tube feeding: Nepro -Free water 100 mL every 4 hours -BR: [place] -PPI -24 hours -110 -BMS in place : Acute kidney injury likely secondary to ATN, hyperphosphatemia -Nephrology consulted, appreciate recommendations -Vas-Cath placed 03/15 -HD initiated 03/15 -Daily weights -Strict intake and output -Avoid nephrotoxic medications -Renally dose medications -Trend BMP -Intervene for electrolytes as needed -Daily HD for now per nephrology ID: COVID-19 pneumonia, leukocytosis, Staph aureus in tracheal aspirate, Conjunctival hemorrhage, periorbital edema -Infectious disease consulted, appreciate recommendations -COVID-19 PCR positive -PO steroid -Ordered Actemra per ID -Per ID patient is on a candidate for remdesivir due to renal failure -Patient received 1 dose of remdesivir on 03/14 -Prophylactic anticoagulation based on D-dimer -Cipro/Dex drops for 5 days -Started on vancomycin, PKS to dose -Trend COVID-19 inflammatory markers -Isolation/droplet precautions -Vitamin C/vitamin D/zinc -03/13 BC x2 no growth to date -03/14 tracheal aspirate with Staph aureus (ID aware) -ABX per ID -Monitor WBC and fever curve Heme: Leukocytosis, elevated D-dimer -Trend CBC -Transfuse hemoglobin less than 7 -Prophylactic heparin -SCDs to bilateral lower extremity while in bed -BLE duplex US shows no DVT Endo: Possible some degree of insulin resistance -Hemoglobin A1c 6.3 -SSI -Accu-Cheks every 6 -Avoid hypoglycemia -Target blood glucose while critically ill 140-180 The high probability of a clinically significant, sudden or life threatening deterioration of the [multiple] system(s) required my full and direct attention, intervention and personal management. The aggregate critical care time was [60] minutes. This time is in addition to time spent performing reported procedures but includes the following: [x] Data Review and interpretation [x] Patient assessment and monitoring of vital signs [x] Documentation [x] Medication orders and management Disposition Plan: icu Total Time Spent with Patient (Minutes): 60 History Interval history: This is a 31-year-old female with asthma, history of prior intubation x1 in 02/2019, morbid obesity and Crohn's disease who presented to the emergency department on 03/13 with complaints of severe wheezing and shortness of breath over the past 4 days which is not relieved by home nebulizer treatments or rescue inhalers, cough without fever and no loss of sense of taste or smell. Patient is currently on vaccinated for COVID-19. In the emergency department patient was placed on BiPAP given steroids magnesium Solu-Medrol with improvement, CXR shows a streak of possible pneumonia. Patient was made a COVID-19 PUI and admitted to the hospital service. Patient was initially admitted to [facility] on BiPAP and was subsequently intubated due to severe respiratory distress and inability to protect her airway. Patient was admitted with acute hypoxic respiratory failure, acute asthma exacerbation, right upper lobe pneumonia, and as a COVID-19 PUI. Hospital Course to Date: 03/14/21- Patient is s/p intubation from this morning, sedated on propofol and fentanyl RASS -3 to -4. ETT above the clavicles advanced by 2cc. Continue nebs and IV steroids per CCM. COVID swab pending. Hyperkalemia improved, X1 dose of kayaxalate ordered. Low BP and low urine output this am, fluid bolus challenge, 500cc of NS bolus given. Continue to monitor electrolytes and renal function, re peat BMP this afternoon. 03/15: Patient's renal function noted to be significantly worse today, patient was hyperkalemic and this was medically treated. Patient initiated on hemodialysis today. Patient disease was consulted today. 03/16: No acute events reported overnight, patient received hemodialysis yesterday. Patient is currently on propofol and fentanyl. 03/17: Patient received hemodialysis today, patient is slightly acidotic on ABG however [facility] is allowing for permissive hypercapnia, tracheal aspirate with Staph aureus and ID is aware. 03/18: Patient is having high residuals today and Reglan was started, patient will receive HD daily per nephrology, correct her change in FiO2 as tolerated. 03/19: HD per nephrology today, antibiotics changed to cefazolin. Patient did not tolerate tube feedings as she had high residuals this morning and they were turned off. Not restarted yet. Updated family at bedside today 03/20: HD today, ddimer noted to be >1000, Tolerating trickle TF. Stat BLE dopplar US 03/21: Patient is not tolerating TF, CXR shows worsening infiltrates, [facility] made changes to vent, TF on hold and started on IVF. 03/22/21- Patient remains intubated and on sedation. Persistent vomiting, TF held overnight, no documented BM, on reglan BR added, Shaun citarte & supp. HD today. Plan to restart TF at 10ml/hr, will reevaluate in the am. Persistent thrombocytopenia, Hep on hold, HIT panel ordered, PO eliquis initiated. 03/23/21- Patient remains on the vent and sedated on propofol and fentanyl RASS - 2 to -3. Possible SAT today as tolerated. Patient tolerated trickle feeds overnight, plan to advance TF by 10cc Q8 to 12hrs. Continue current BR and continue reglan for now. Slightr worsening in acidosis from this am, d/w [facility] vent setting adjusted, will repeat ABG at 9pm. 03/24/21- Patient is on the vent and sedated, on fentanyl and propfol. Bilateral subconjunctival hemorrhage with periorbital edema noted this am, pupils are round and reactive, will Cipro/Dex [id number]. Worsening of kidney function from today's labs, plan for HD per Nephro. 03/25/21- Patient remains intubated and on sedatin, RASS 0 to -1, no longer on pressors. Sudden drop in H&H this am, bilateral subconjunctival hemorrhage with no sig change, no signs of any active bleeding. Patient appears neurologically intact, following commands, pupils are round and reactive with + gag and cough, moved all extremities. D/w [facility] patient is too unstable for CT at this time. Eliquis D/Devaughn, 1unit of PRBC ordered. Will continue to trend CBC. Plan for another section of HD today 03/26/21- Patient remains on the vent and sedated. VENICE reported from overnight. Plan for HD again today. H&H back up and stable, no AC at this time, SCDs for VTE phro. D/w [facility] patient is still too unstable for CT scan, will continue neuro exam and will continue to monitor H&H. 03/27/21- VENICE overnight. remains on the vent and sedated. Red localized rashes noted in patient upper chest and face, will r/o allergic reaction,CBC with auto diff and urine eosinophils ordered. Plan for HD today per Nephro. 03/28/21- Patient remains on the vent and sedated. Persistent fevers overnight unrelieved with antipyretic, currently on a cooling blanket. Back on pressors for hypotension, patient already on IV abx, last blood cultureX2 and sputum culture from 03/23 were negative. Continue IV abx, will reculture patient, orders placed for B.culture and sputum culture. ID is also on consult. will continue F/u on culture and continue to monitor BMP and CBC. 03/29: Patient restarted on prednisone given splotchy rash, will resume apixaban for VTE prophylaxis and repeat ABG at 9 PM. Remains with leukocytosis, elevated BUN/creatinine, elevated triglycerides and on Levophed Hospitalist Physical - Constitutional Vitals: Temp Pulse Resp BP Pulse Ox 99.0 F 105 H 34 H 99/75 98 03/29/21 12:00 03/29/21 17:46 03/29/21 17:46 03/29/21 17:46 03/29/21 17:46 General appearance: Present: no acute distress, well-nourished, obese, other (Intubated and sedated) - EENT Eyes: Present: PERRL, EOM intact ENT: dentition normal - Neck Neck: Present: normal ROM - Respiratory Respiratory effort: normal Respiratory: bilateral: diminished - Cardiovascular Rhythm: regular Heart Sounds: Present: S1 & S2. Absent: systolic murmur, diastolic murmur - Extremities Extremities: no ischemia, pulses intact, pulses symmetrical, normal temperature, normal color Extremity abnormal: edema Peripheral Pulses: within normal limits - Abdominal General gastrointestinal: soft, non-tender, non-distended, normal bowel sounds - Integumentary Integumentary: Present: warm, dry - Psychiatric Psychiatric: other - Neurologic Neurologic: other (sedated) - Allied Health Allied health notes reviewed: nursing, RT, social work Results - Labs CBC & Chem 7: 03/29/21 04:45 03/29/21 04:45 Labs: Laboratory Last Values WBC 17.5 K/mm3 (4.5-11.0) H 03/29/21 04:45 RBC 3.15 M/mm3 (3.65-5.03) L 03/29/21 04:45 Hgb 8.8 gm/dl (10.1-14.3) L 03/29/21 04:45 Hct 27.2 % (30.3-42.9) L 03/29/21 04:45 MCV 87 fl (79-97) 03/29/21 04:45 MCH 28 pg (28-32) 03/29/21 04:45 MCHC 32 % (30-34) 03/29/21 04:45 RDW 17.9 % (13.2-15.2) H 03/29/21 04:45 Plt Count 132 K/mm3 (140-440) L 03/29/21 04:45 Lymph % (Auto) 10.7 % (13.4-35.0) L 03/28/21 09:37 [place] % (Auto) 5.2 % (0.0-7.3) 03/28/21 09:37 Eos % (Auto) 3.9 % (0.0-4.3) 03/28/21 09:37 Baso % (Auto) 0.2 % (0.0-1.8) 03/28/21 09:37 Lymph # (Auto) 1.7 K/mm3 (1.2-5.4) 03/28/21 09:37 [place] # (Auto) 0.9 K/mm3 (0.0-0.8) H 03/28/21 09:37 Eos # (Auto) 0.6 K/mm3 (0.0-0.4) H 03/28/21 09:37 Baso # (Auto) 0.0 K/mm3 (0.0-0.1) 03/28/21 09:37 Seg Neutrophils % 80.0 % (40.0-70.0) H 03/28/21 09:37 Seg Neutrophils # 13.0 K/mm3 (1.8-7.7) H 03/28/21 09:37 PT 15.8 Sec. (12.2-14.9) H 03/22/21 13:40 INR 1.14 (0.87-1.13) H 03/22/21 13:40 APTT 26.8 Sec. (24.2-36.6) 03/22/21 13:40 D-Dimer > 05076 ng/mlDDU (0-234) H 03/22/21 13:40 ABG pH 7.258 pH Units (7.350-7.450) L 03/29/21 Unknown POC ABG pCO2 41.5 mmHg (32.0-48.0) 03/28/21 21:08 ABG pCO2 50.6 mm Hg 03/29/21 Unknown POC ABG pO2 80.5 mmHg (83-108) L 03/28/21 21:08 ABG pO2 84.9 mm Hg (80.0-90.0) 03/29/21 Unknown POC ABG HCO3 21.7 03/28/21 21:08 ABG HCO3 22.1 mmol/L (20.0-26.0) 03/29/21 Unknown ABG O2 Saturation 95.9 % (95.0-99.0) 03/29/21 Unknown ABG O2 Content 11.7 (0.0-44) 03/29/21 Unknown POC ABG Base Excess -3.9 03/28/21 21:08 ABG Base Excess -4.9 mmol/L (-2.0-3.0) L 03/29/21 Unknown ABG Hemoglobin 8.8 gm/dl (12.0-16.0) L 03/29/21 Unknown ABG Oxyhemoglobin 94.3 (94-98) 03/28/21 21:08 ABG Carboxyhemoglobin 1.5 % (0.0-5.0) 03/29/21 Unknown ABG Methemoglobin 0.5 % (0.0-1.5) 03/29/21 Unknown ABG Sodium 133.3 mmol/L (136.0-145.0) L 03/28/21 21:08 ABG Potassium 3.7 mmol/L (3.40-4.50) 03/28/21 21:08 ABG Chloride 102.0 mmol/L (98-107) 03/28/21 21:08 ABG Glucose 134 mg/dL (65-95) H 03/28/21 21:08 Oxyhemoglobin 93.9 % (95.0-99.0) L 03/29/21 Unknown Carboxyhemoglobin 0.3 (0.5-1.5) L 03/28/21 21:08 FiO2 21 % 03/29/21 Unknown FiO2 % 50.0 03/28/21 21:08 Sodium 137 mmol/L (137-145) 03/29/21 04:45 Potassium 4.0 mmol/L (3.6-5.0) 03/29/21 04:45 Chloride 97.7 mmol/L (98-107) L 03/29/21 04:45 Carbon Dioxide 21 mmol/L (22-30) L 03/29/21 04:45 Anion Gap 22 mmol/L 03/29/21 04:45 BUN 78 mg/dL (7-17) H 03/29/21 04:45 Creatinine 9.5 mg/dL (0.6-1.2) H 03/29/21 04:45 Estimated GFR 6 ml/min 03/29/21 04:45 BUN/Creatinine Ratio 8 % 03/29/21 04:45 Glucose 132 mg/dL (65-100) H 03/29/21 04:45 POC Glucose 133 mg/dL (70-105) H 03/29/21 16:50 Hemoglobin A1c 6.3 % (4-6) H 03/15/21 05:09 Lactic Acid 2.00 mmol/L (0.7-2.0) 03/14/21 18:47 Calcium 8.5 mg/dL (8.4-10.2) 03/29/21 04:45 Phosphorus 10.80 mg/dL (2.5-4.5) H 03/23/21 04:30 Magnesium 3.50 mg/dL (1.7-2.3) H 03/23/21 04:30 Ferritin 151.6 ng/mL (10.0-200.0) 03/18/21 04:30 Total Bilirubin 0.30 mg/dL (0.1-1.2) 03/29/21 04:45 AST 34 units/L (5-40) 03/29/21 04:45 ALT 8 units/L (7-56) 03/29/21 04:45 Alkaline Phosphatase 83 units/L (35-129) 03/29/21 04:45 Lactate Dehydrogenase 477 units/L (91-180) H 03/18/21 04:30 C-Reactive Protein 9.40 mg/dL (0.00-1.30) H 03/22/21 10:00 Total Protein 6.4 g/dL (6.3-8.2) 03/29/21 04:45 Albumin 2.2 g/dL (3.9-5) L 03/29/21 04:45 Albumin/Globulin Ratio 0.5 % 03/29/21 04:45 Triglycerides 385 mg/dL (2-149) H 03/29/21 04:45 Procalcitonin < 0.05 ng/mL (<0.15) 03/13/21 15:40 HCG, Qual Negative (Negative) 03/13/21 13:26 Arterial Blood Glucose 134 mg/dL (65-95) H 03/28/21 21:08 Arterial Blood Ionized Calcium 4.4 mg/dL (4.6-5.3) L 03/23/21 21:00 Urine Creatinine 40.1 mg/dL (0.1-20.0) H 03/14/21 17:50 Urine Sodium 124 mmol/L 03/14/21 17:50 Random Vancomycin 11.2 ug/mL (0-40.0) 03/20/21 04:23 Coronavirus (PCR) Positive (Negative) A 03/14/21 Unknown Hepatitis A IgM Ab Non-reactive (NonReactive) 03/15/21 05:09 Hep Bs Antigen Nonreactive (Negative) 03/15/21 05:09 Hep B Core IgM Ab Non-reactive (NonReactive) 03/15/21 05:09 Hepatitis C Antibody Non-reactive (NonReactive) 03/15/21 05:09 Blood Type O POSITIVE 03/25/21 13:45 Antibody Screen Negative 03/25/21 13:45 Crossmatch See Detail 03/25/21 13:45 Microbiology: Microbiology 03/23/21 15:34 Peripheral/Venous Blood Culture - Final NO GROWTH AFTER 5 DAYS 03/23/21 15:44 Peripheral/Venous Blood Culture - Final NO GROWTH AFTER 5 DAYS Bazan/IV: Voiding Method Incontinent Active Medications - Current Medications Current Medications: Generic Name Dose Route Start Last Admin Trade Name Freq PRN Reason Stop Dose Admin Acetaminophen 650 mg 03/29/21 15:02 Acetaminophen 325 Mg/10.15 Ml Oral Liqd Unit Dose FEEDTUBE Q6H PRN Pain, Mild (1-3) Albuterol 2.5 mg 03/19/21 00:53 Albuterol 2.5 Mg/3 Ml Nebu IH Q4HRT PRN Shortness Of Breath Albuterol/Ipratropium 1 ampul 03/19/21 08:00 03/29/21 14:42 Ipratropium/Albuterol Sulfate 3 Ml Ampul.Neb IH 1 ampul Q6HRT INESSA Administration Lipase/Protease/Amylase 1 each 03/15/21 11:42 Lipase 10,500/Protease 25,000/Amylase 43,750 (Units) Dr White FEEDTUBE PRN PRN For Clogged Feeding Tube Apixaban 2.5 mg 03/29/21 13:00 03/29/21 12:53 Apixaban 2.5 Mg Tab PO 2.5 mg Q12HR INESSA Administration Protocol Ascorbic Acid 500 mg 03/14/21 22:00 03/29/21 09:30 Ascorbic Acid 500 Mg Tab PO 500 mg BID INESSA Administration Dextrose 50 ml 03/14/21 11:02 03/15/21 11:40 Dextrose 50% In Water (25gm) 50 Ml Syringe IV 50 ml Q30MIN PRN Administration Hypoglycemia Protocol Diphenhydramine HCl 25 mg 03/28/21 18:00 03/29/21 12:53 Diphenhydramine 50 Mg/Ml Vial IV 03/31/21 17:59 25 mg Q6H INESSA Administration Famotidine 10 mg 03/17/21 22:00 03/29/21 09:30 Famotidine 10 Mg Tab PO 10 mg BID INESSA Administration Fentanyl 50 mcg 03/15/21 10:43 03/28/21 09:25 Fentanyl 100 Mcg/2 Ml Inj IV 50 mcg Q10MIN PRN Administration ANALGESIA Hydralazine HCl 10 mg 03/15/21 10:10 03/15/21 10:32 Hydralazine 20 Mg/1 Ml Inj IV 10 mg Q4HR PRN Administration Hypertension Hydrophilic Ointment 1 applic 03/14/21 17:50 Lip Therapy Vaseline TP Q2HR PRN Dry Lips Propofol 1,000 mg in 100 mls @ 4.123 mls/hr 03/15/21 11:00 03/29/21 16:39 Diprivan 10 Mg/Ml IV 35 mcg/kg/min TITR INESSA 28.862 mls/hr Administration Protocol 5 MCG/KG/MIN Fentanyl Citrate 2,000 mcg in 100 mls @ 6.872 mls/hr 03/15/21 11:00 03/29/21 14:45 Fentanyl Drip Premix IV 3 mcg/kg/hr TITR INESSA 20.616 mls/hr Administration Protocol 1 MCG/KG/HR Sodium Chloride 500 mls @ 1 mls/hr 03/16/21 17:19 Nacl 0.9% 500 Ml IV DIRECT PRN ARTERIAL LINE FLUSH Vasopressin 20 unit/ Sodium 101 mls @ 9.09 mls/hr 03/21/21 16:00 03/24/21 08:10 Chloride IV 0 units/min TITR INESSA 0 mls/hr Titration Protocol 0.03 UNITS/MIN NORepinephrine/NS 8 MG-250 ML 8 mg in 250 mls @ 3.75 mls/hr 03/23/21 11:00 03/29/21 10:00 Norepinephrine/Ns 8 Mg-250 Ml (Double Conc) IV 0 mcg/min TITRATE INESSA 0 mls/hr Titration Protocol 2 MCG/MIN Sodium Chloride 100 mls @ 999 mls/hr 03/27/21 08:12 Nacl 0.9% IV KARLOS PRN Hypotension Cefepime HCl 2 gm in 100 mls @ 200 mls/hr 03/27/21 16:00 03/29/21 16:56 Cefepime/Ns 2 Gm/100 Ml IV 200 mls/hr Q24H INESSA Administration Protocol Insulin Human Lispro 0 unit 03/14/21 12:00 03/29/21 17:55 Insulin Lispro 100 Unit/Ml SUB-Q Not Given Q6HR [facility] Protocol Lorazepam 1 mg 03/13/21 19:40 03/18/21 14:11 Lorazepam 2 Mg/Ml Vial IV 1 mg Q4H PRN Administration Anxiety Multi-Ingred Cream/Lotion/Oil/Oint 1 applic 03/14/21 17:50 Mineral Oil/Petrolatum, White Ophth Oint 3.5 Gm OU Q4HR PRN Dry Eye(s) Ondansetron HCl 4 mg 03/13/21 19:30 03/21/21 12:05 Ondansetron 4 Mg/2 Ml Inj IV 4 mg Q8H PRN Administration Nausea And Vomiting Prednisone 5 mg 03/29/21 16:00 03/29/21 16:41 Prednisone 5 Mg Tab PO 5 mg QDAY INESSA Administration Senna/Docusate Sodium 1 tab 03/14/21 22:00 03/29/21 09:30 Sennosides/Docusate Sodium 8.6/50 Mg Tab FEEDTUBE 1 tab BID INESSA Administration Simple Syrup 15 ml 03/15/21 11:42 Simple Syrup 15 Ml FEEDTUBE PRN PRN Hypoglycemia Simple Syrup 30 ml 03/15/21 11:42 Simple Syrup 15 Ml FEEDTUBE PRN PRN Hypoglycemia Sodium Bicarbonate 325 mg 03/15/21 11:42 03/21/21 17:21 Sodium Bicarbonate 325 Mg Tab FEEDTUBE 325 mg PRN PRN Administration For Clogged Feeding Tube Sodium Chloride 10 ml 03/13/21 22:00 03/29/21 09:33 Sodium Chloride 0.9% 10 Ml Flush Syringe IV 10 ml BID INESSA Administration Sodium Chloride 10 ml 03/13/21 19:30 Sodium Chloride 0.9% 10 Ml Flush Syringe IV PRN PRN LINE FLUSH Zinc Sulfate 220 mg 03/14/21 22:00 03/29/21 09:30 Zinc Sulfate 220 Mg Cap PO 220 mg BID INESSA Administration Nutrition/Malnutrition Assess - Dietary Evaluation Nutrition/Malnutrition Findings: Nutrition Notes Start: 03/15/21 11:06 Freq: Status: Active Protocol: Document 03/27/21 10:27 REJI (Rec: 03/27/21 10:33 [facility] [id number]) Nutrition Notes Initial or Follow up Brief Note Subjective/Other Information Spoke with pt's RN via phone at 10:27. Pt tolerating TF at goal rate. Rectal tube remains in place. Percent of energy/protein needs met: 99% energy 73% pro Nutrition Intervention Follow-Up By: 04/02/21 Additional Comments F/U: stable TF, vent status, rectal tube, propofol, wt <WESLEY LANCASTER - Last Filed: 03/30/21 07:37> Assessment and Plan Assessment and plan: I saw and evaluated the patient. I agree with the findings and the plan of care as documented in the Nurse Practitioner's~note, with the following corrections and additions. Hospitalist Physical - Constitutional Vitals: Temp Pulse Resp BP Pulse Ox 98.6 F 122 H 41 H 99/44 97 03/30/21 04:00 03/30/21 07:00 03/30/21 07:00 03/30/21 07:00 03/30/21 07:00 Results - Labs CBC & Chem 7: 03/30/21 04:00 03/30/21 04:00 Labs: Laboratory Last Values WBC 15.7 K/mm3 (4.5-11.0) H 03/30/21 04:00 RBC 3.18 M/mm3 (3.65-5.03) L 03/30/21 04:00 Hgb 8.6 gm/dl (10.1-14.3) L 03/30/21 04:00 Hct 27.3 % (30.3-42.9) L 03/30/21 04:00 MCV 86 fl (79-97) 03/30/21 04:00 MCH 27 pg (28-32) L 03/30/21 04:00 MCHC 32 % (30-34) 03/30/21 04:00 RDW 18.0 % (13.2-15.2) H 03/30/21 04:00 Plt Count 86 K/mm3 (140-440) L 03/30/21 04:00 Lymph % (Auto) 10.7 % (13.4-35.0) L 03/28/21 09:37 [place] % (Auto) 5.2 % (0.0-7.3) 03/28/21 09:37 Eos % (Auto) 3.9 % (0.0-4.3) 03/28/21 09:37 Baso % (Auto) 0.2 % (0.0-1.8) 03/28/21 09:37 Lymph # (Auto) 1.7 K/mm3 (1.2-5.4) 03/28/21 09:37 [place] # (Auto) 0.9 K/mm3 (0.0-0.8) H 03/28/21 09:37 Eos # (Auto) 0.6 K/mm3 (0.0-0.4) H 03/28/21 09:37 Baso # (Auto) 0.0 K/mm3 (0.0-0.1) 03/28/21 09:37 Seg Neutrophils % 80.0 % (40.0-70.0) H 03/28/21 09:37 Seg Neutrophils # 13.0 K/mm3 (1.8-7.7) H 03/28/21 09:37 PT 15.8 Sec. (12.2-14.9) H 03/22/21 13:40 INR 1.14 (0.87-1.13) H 03/22/21 13:40 APTT 26.8 Sec. (24.2-36.6) 03/22/21 13:40 D-Dimer 2607.12 ng/mlDDU (0-234) H 03/30/21 04:00 ABG pH 7.258 pH Units (7.350-7.450) L 03/29/21 Unknown POC ABG pCO2 Cancelled 03/29/21 21:06 ABG pCO2 50.6 mm Hg 03/29/21 Unknown POC ABG pO2 Cancelled 03/29/21 21:06 ABG pO2 84.9 mm Hg (80.0-90.0) 03/29/21 Unknown POC ABG HCO3 Cancelled 03/29/21 21:06 ABG HCO3 22.1 mmol/L (20.0-26.0) 03/29/21 Unknown ABG O2 Saturation 95.9 % (95.0-99.0) 03/29/21 Unknown ABG O2 Content 11.7 (0.0-44) 03/29/21 Unknown POC ABG Base Excess Cancelled 03/29/21 21:06 ABG Base Excess -4.9 mmol/L (-2.0-3.0) L 03/29/21 Unknown ABG Hemoglobin 8.8 gm/dl (12.0-16.0) L 03/29/21 Unknown ABG Oxyhemoglobin Cancelled 03/29/21 21:06 ABG Carboxyhemoglobin 1.5 % (0.0-5.0) 03/29/21 Unknown ABG Methemoglobin 0.5 % (0.0-1.5) 03/29/21 Unknown ABG Sodium Cancelled 03/29/21 21:06 ABG Potassium Cancelled 03/29/21 21:06 ABG Chloride Cancelled 03/29/21 21:06 ABG Glucose Cancelled 03/29/21 21:06 ABG Lactate Cancelled 03/29/21 21:06 Oxyhemoglobin 93.9 % (95.0-99.0) L 03/29/21 Unknown Carboxyhemoglobin Cancelled 03/29/21 21:06 FiO2 21 % 03/29/21 Unknown FiO2 % Cancelled 03/29/21 21:06 Sodium 133 mmol/L (137-145) L 03/30/21 04:00 Potassium 5.2 mmol/L (3.6-5.0) H D 03/30/21 04:00 Chloride 91.5 mmol/L (98-107) L 03/30/21 04:00 Carbon Dioxide 18 mmol/L (22-30) L 03/30/21 04:00 Anion Gap 29 mmol/L 03/30/21 04:00 BUN 101 mg/dL (7-17) H 03/30/21 04:00 Creatinine 10.6 mg/dL (0.6-1.2) H 03/30/21 04:00 Estimated GFR 5 ml/min 03/30/21 04:00 BUN/Creatinine Ratio 10 % 03/30/21 04:00 Glucose 149 mg/dL (65-100) H 03/30/21 04:00 POC Glucose 130 mg/dL (70-105) H 03/30/21 06:02 Hemoglobin A1c 6.3 % (4-6) H 03/15/21 05:09 Lactic Acid 2.00 mmol/L (0.7-2.0) 03/14/21 18:47 Calcium 8.4 mg/dL (8.4-10.2) 03/30/21 04:00 Phosphorus 10.30 mg/dL (2.5-4.5) H 03/30/21 04:00 Magnesium 2.10 mg/dL (1.7-2.3) 03/30/21 04:00 Ferritin 151.6 ng/mL (10.0-200.0) 03/18/21 04:30 Total Bilirubin 0.30 mg/dL (0.1-1.2) 03/29/21 04:45 Bilirubin Cancelled 03/29/21 21:06 AST 34 units/L (5-40) 03/29/21 04:45 ALT 8 units/L (7-56) 03/29/21 04:45 Alkaline Phosphatase 83 units/L (35-129) 03/29/21 04:45 Lactate Dehydrogenase 477 units/L (91-180) H 03/18/21 04:30 C-Reactive Protein 21.50 mg/dL (0.00-1.30) H 03/30/21 04:00 Total Protein 6.4 g/dL (6.3-8.2) 03/29/21 04:45 Albumin 2.2 g/dL (3.9-5) L 03/29/21 04:45 Albumin/Globulin Ratio 0.5 % 03/29/21 04:45 Triglycerides 385 mg/dL (2-149) H 03/29/21 04:45 Procalcitonin < 0.05 ng/mL (<0.15) 03/13/21 15:40 HCG, Qual Negative (Negative) 03/13/21 13:26 Arterial Blood Glucose Cancelled 03/29/21 21:06 Arterial Blood Ionized Calcium Cancelled 03/29/21 21:06 Urine Creatinine 40.1 mg/dL (0.1-20.0) H 03/14/21 17:50 Urine Sodium 124 mmol/L 03/14/21 17:50 Random Vancomycin 11.2 ug/mL (0-40.0) 03/20/21 04:23 Coronavirus (PCR) Positive (Negative) A 03/14/21 Unknown Hepatitis A IgM Ab Non-reactive (NonReactive) 03/15/21 05:09 Hep Bs Antigen Nonreactive (Negative) 03/15/21 05:09 Hep B Core IgM Ab Non-reactive (NonReactive) 03/15/21 05:09 Hepatitis C Antibody Non-reactive (NonReactive) 03/15/21 05:09 Blood Type O POSITIVE 03/25/21 13:45 Antibody Screen Negative 03/25/21 13:45 Crossmatch See Detail 03/25/21 13:45 Microbiology: Microbiology 03/29/21 23:26 Peripheral/Venous Blood Culture - Preliminary Culture in Progress 03/29/21 23:30 Peripheral/Venous Blood Culture - Preliminary Culture in Progress Bazan/IV: Voiding Method Incontinent Active Medications - Current Medications Current Medications: Generic Name Dose Route Start Last Admin Trade Name Freq PRN Reason Stop Dose Admin Acetaminophen 650 mg 03/29/21 15:02 Acetaminophen 325 Mg/10.15 Ml Oral Liqd Unit Dose FEEDTUBE Q6H PRN Pain, Mild (1-3) Albuterol 2.5 mg 03/19/21 00:53 Albuterol 2.5 Mg/3 Ml Nebu IH Q4HRT PRN Shortness Of Breath Albuterol/Ipratropium 1 ampul 03/19/21 08:00 03/30/21 02:36 Ipratropium/Albuterol Sulfate 3 Ml Ampul.Neb IH 1 ampul Q6HRT INESSA Administration Lipase/Protease/Amylase 1 each 03/15/21 11:42 Lipase 10,500/Protease 25,000/Amylase 43,750 (Units) Dr White FEEDTUBE PRN PRN For Clogged Feeding Tube Apixaban 2.5 mg 03/29/21 13:00 03/29/21 23:34 Apixaban 2.5 Mg Tab PO 2.5 mg Q12HR INESSA Administration Protocol Ascorbic Acid 500 mg 03/14/21 22:00 03/29/21 22:24 Ascorbic Acid 500 Mg Tab PO 500 mg BID INESSA Administration Dextrose 50 ml 03/14/21 11:02 03/15/21 11:40 Dextrose 50% In Water (25gm) 50 Ml Syringe IV 50 ml Q30MIN PRN Administration Hypoglycemia Protocol Diphenhydramine HCl 25 mg 03/28/21 18:00 03/30/21 06:12 Diphenhydramine 50 Mg/Ml Vial IV 03/31/21 17:59 25 mg Q6H INESSA Administration Famotidine 10 mg 03/17/21 22:00 03/29/21 22:24 Famotidine 10 Mg Tab PO 10 mg BID INESSA Administration Fentanyl 50 mcg 03/15/21 10:43 03/28/21 09:25 Fentanyl 100 Mcg/2 Ml Inj IV 50 mcg Q10MIN PRN Administration ANALGESIA Hydralazine HCl 10 mg 03/15/21 10:10 03/15/21 10:32 Hydralazine 20 Mg/1 Ml Inj IV 10 mg Q4HR PRN Administration Hypertension Hydrophilic Ointment 1 applic 03/14/21 17:50 Lip Therapy Vaseline TP Q2HR PRN Dry Lips Propofol 1,000 mg in 100 mls @ 4.123 mls/hr 03/15/21 11:00 03/30/21 01:17 Diprivan 10 Mg/Ml IV 15 mcg/kg/min TITR INESSA 12.369 mls/hr Administration Protocol 5 MCG/KG/MIN Fentanyl Citrate 2,000 mcg in 100 mls @ 6.872 mls/hr 03/15/21 11:00 03/30/21 03:33 Fentanyl Drip Premix IV 2.5 mcg/kg/hr TITR INESSA 17.18 mls/hr Administration Protocol 1 MCG/KG/HR Sodium Chloride 500 mls @ 1 mls/hr 03/16/21 17:19 Nacl 0.9% 500 Ml IV DIRECT PRN ARTERIAL LINE FLUSH Vasopressin 20 unit/ Sodium 101 mls @ 9.09 mls/hr 03/21/21 16:00 03/24/21 08:10 Chloride IV 0 units/min TITR INESSA 0 mls/hr Titration Protocol 0.03 UNITS/MIN NORepinephrine/NS 8 MG-250 ML 8 mg in 250 mls @ 3.75 mls/hr 03/23/21 11:00 03/30/21 06:10 Norepinephrine/Ns 8 Mg-250 Ml (Double Conc) IV 2 mcg/min TITRATE INESSA 3.75 mls/hr Titration Protocol 2 MCG/MIN Sodium Chloride 100 mls @ 999 mls/hr 03/27/21 08:12 Nacl 0.9% IV KARLOS PRN Hypotension Cefepime HCl 2 gm in 100 mls @ 200 mls/hr 03/27/21 16:00 03/29/21 16:56 Cefepime/Ns 2 Gm/100 Ml IV 200 mls/hr Q24H INESSA Administration Protocol Insulin Human Lispro 0 unit 03/14/21 12:00 03/30/21 06:12 Insulin Lispro 100 Unit/Ml SUB-Q Not Given Q6HR [facility] Protocol Lorazepam 1 mg 03/13/21 19:40 03/18/21 14:11 Lorazepam 2 Mg/Ml Vial IV 1 mg Q4H PRN Administration Anxiety Multi-Ingred Cream/Lotion/Oil/Oint 1 applic 03/14/21 17:50 Mineral Oil/Petrolatum, White Ophth Oint 3.5 Gm OU Q4HR PRN Dry Eye(s) Ondansetron HCl 4 mg 03/13/21 19:30 03/21/21 12:05 Ondansetron 4 Mg/2 Ml Inj IV 4 mg Q8H PRN Administration Nausea And Vomiting Prednisone 5 mg 03/29/21 16:00 03/29/21 16:41 Prednisone 5 Mg Tab PO 5 mg QDAY INESSA Administration Senna/Docusate Sodium 1 tab 03/14/21 22:00 03/29/21 22:24 Sennosides/Docusate Sodium 8.6/50 Mg Tab FEEDTUBE 1 tab BID INESSA Administration Simple Syrup 15 ml 03/15/21 11:42 Simple Syrup 15 Ml FEEDTUBE PRN PRN Hypoglycemia Simple Syrup 30 ml 03/15/21 11:42 Simple Syrup 15 Ml FEEDTUBE PRN PRN Hypoglycemia Sodium Bicarbonate 325 mg 03/15/21 11:42 03/21/21 17:21 Sodium Bicarbonate 325 Mg Tab FEEDTUBE 325 mg PRN PRN Administration For Clogged Feeding Tube Sodium Chloride 10 ml 03/13/21 22:00 03/29/21 22:25 Sodium Chloride 0.9% 10 Ml Flush Syringe IV 10 ml BID INESSA Administration Sodium Chloride 10 ml 03/13/21 19:30 Sodium Chloride 0.9% 10 Ml Flush Syringe IV PRN PRN LINE FLUSH Zinc Sulfate 220 mg 03/14/21 22:00 03/29/21 22:24 Zinc Sulfate 220 Mg Cap PO 220 mg BID INESSA Administration Nutrition/Malnutrition Assess - Dietary Evaluation Nutrition/Malnutrition Findings: Nutrition Notes Start: 03/15/21 11:06 Freq: Status: Active Protocol: Document 03/27/21 10:27 REJI (Rec: 03/27/21 10:33 [email or web address] [email or web address]) Nutrition Notes Initial or Follow up Brief Note Subjective/Other Information Spoke with pt's RN via phone at 10:27. Pt tolerating TF at goal rate. Rectal tube remains in place. Percent of energy/protein needs met: 99% energy 73% pro Nutrition Intervention Follow-Up By: 04/02/21 Additional Comments F/U: stable TF, vent status, rectal tube, propofol, wt
[2021-03-29 21:36] LABS: ABG Base Excess -5.2 mmol/L (-2.0-3.0); ABG HCO3 21.9 mmol/L (20.0-26.0); ABG Methemoglobin 0.6 % (0.0-1.5); ABG Oxygen Saturation 87.1 % (95.0-99.0); ABG PCO2 51.7 mm Hg; ABG PH 7.245 pH Units (7.350-7.450); ABG PO2 64.9 mm Hg (80.0-90.0)
[2021-03-30] MEDS: INSULIN LISPRO 100 UNIT/ML SUB-Q SCH ×4 (00:26→19:27)
[2021-03-30] MEDS: diphenhydrAMINE 50 MG/ML VIAL IV SCH ×4 (00:26→19:00)
[2021-03-30] MEDS: IPRATROPIUM/ALBUTEROL SULFATE 3 ML AMPUL.NEB IH SCH ×4 (02:36→20:04)
--- NOTE | 2021-03-30 02:52 | XRay Report ---
CHEST 1 VIEW 03/30/2021 1:36 AM INDICATION / CLINICAL INFORMATION: hypoxia. COMPARISON: 03/16/2021. FINDINGS: SUPPORT DEVICES: Unchanged. HEART / MEDIASTINUM: No significant abnormality. LUNGS / PLEURA: Persistent diffuse bilateral opacity with mild interval improvement. Improving aerati on at the bases. No pneumothorax. ADDITIONAL FINDINGS: No significant additional findings. IMPRESSION: Mild interval improvement. Signer Name: Leon Nath MD Signed: 03/30/2021 2:47 AM Workstation Name: [id number]
[2021-03-30] MEDS: fentaNYL DRIP Premix 2,000 MCG/100 ML BAG IV SCH ×6 (03:33→22:51)
[2021-03-30 05:43] LABS: Hematocrit 27.3 % (30.3-42.9); Hemoglobin 8.6 gm/dl (10.1-14.3); Mean Corpuscular HGB Conc 32 % (30-34); Mean Corpuscular Volume 86 fl (79-97); Red Blood Count 3.18 M/mm3 (3.65-5.03)
[2021-03-30 05:45] LABS: Platelet Count 86 K/mm3 (140-440)
[2021-03-30 06:03] LABS: C-Reactive Protein 21.5 mg/dL (0.00-1.30); Calcium 8.4 mg/dL (8.4-10.2)
--- NOTE | 2021-03-30 09:20 | Progress Note ---
Subjective Date of service: 03/30/21 Principal diagnosis: Ac hypoxemic resp failure; AE-Asthma; SAI; Crohn's; COVID- 19; Pneumonia Interval history: #Acute kidney injury: dialysis dependent S/p daily HD, now transitioned to TTS Assess daily for needs for additional sessions Strict input and output Avoid nephrotoxin Renally dose medications Keep MAP > 65 # Hyperkalemia, controlled with HD #Respiratory failure Covid 19 infection currently intubated UF as tolerated with HD, limited by hemodynamic instability #Hyperphosphatemia to be monitored Dialysis has been initiated #Hyponatremia: Improved with HD #Overall prognosis remains guarded Subjective Principal diagnosis: Ac hypoxemic resp failure; AE-Asthma; SAI; Crohn's; COVID- 19; Pneumonia Interval history: Remains intubated. Objective - Exam Narrative Exam: General: NAD HEENT: Oral mucosa moist Neck: Supple, no JVD Chest: Intubated Heart: RRR, S1 and S2, no pericardial rub Abdomen: Soft, nontender, no renal bruit Extremity: No peripheral cyanosis, edema Neurological: Eyes open but not following commands Dermatology: No skin rash Psych: Unable to assess Musculoskeletal: No joint effusion Objective - Vital Signs Vital signs: Vital Signs - 12hr 03/29/21 03/29/21 03/29/21 21:30 21:46 22:00 Temperature Pulse Rate 111 H 110 H 108 H Pulse Rate [ Anterior Bilateral Throughout] Pulse Rate [ From Monitor] Respiratory 31 H 23 22 Rate Respiratory Rate [Anterior Bilateral Throughout] Blood Pressure 120/42 128/50 100/39 O2 Sat by Pulse 97 97 96 Oximetry 03/29/21 03/29/21 03/29/21 22:16 22:30 22:46 Temperature Pulse Rate 107 H 107 H 107 H Pulse Rate [ Anterior Bilateral Throughout] Pulse Rate [ From Monitor] Respiratory 31 H 33 H 35 H Rate Respiratory Rate [Anterior Bilateral Throughout] Blood Pressure 90/40 109/33 97/29 O2 Sat by Pulse 94 97 96 Oximetry 03/29/21 03/29/21 03/29/21 23:00 23:15 23:17 Temperature Pulse Rate 108 H 108 H 107 H Pulse Rate [ Anterior Bilateral Throughout] Pulse Rate [ From Monitor] Respiratory 38 H 32 H 27 H Rate Respiratory Rate [Anterior Bilateral Throughout] Blood Pressure 128/43 109/40 109/40 O2 Sat by Pulse 96 95 95 Oximetry 03/29/21 03/29/21 03/29/21 23:30 23:32 23:45 Temperature Pulse Rate 111 H 109 H 108 H Pulse Rate [ Anterior Bilateral Throughout] Pulse Rate [ From Monitor] Respiratory 37 H 26 H 31 H Rate Respiratory Rate [Anterior Bilateral Throughout] Blood Pressure 109/40 119/31 117/39 O2 Sat by Pulse 94 94 87 Oximetry 03/29/21 03/30/21 03/30/21 23:53 00:00 00:15 Temperature 98.8 F Pulse Rate 110 H 112 H 111 H Pulse Rate [ Anterior Bilateral Throughout] Pulse Rate [ 115 H From Monitor] Respiratory 36 H 35 H Rate Respiratory Rate [Anterior Bilateral Throughout] Blood Pressure 117/39 114/47 127/43 O2 Sat by Pulse 92 94 95 Oximetry 03/30/21 03/30/21 03/30/21 00:30 00:45 01:00 Temperature Pulse Rate 111 H 111 H 109 H Pulse Rate [ Anterior Bilateral Throughout] Pulse Rate [ From Monitor] Respiratory 35 H 31 H 34 H Rate Respiratory Rate [Anterior Bilateral Throughout] Blood Pressure 114/42 104/38 107/43 O2 Sat by Pulse 95 96 93 Oximetry 03/30/21 03/30/21 03/30/21 01:16 01:30 01:45 Temperature Pulse Rate 111 H 112 H 110 H Pulse Rate [ Anterior Bilateral Throughout] Pulse Rate [ From Monitor] Respiratory 34 H 39 H 34 H Rate Respiratory Rate [Anterior Bilateral Throughout] Blood Pressure 103/48 120/34 100/40 O2 Sat by Pulse 93 95 95 Oximetry 03/30/21 03/30/21 03/30/21 02:00 02:16 02:30 Temperature Pulse Rate 112 H 112 H 114 H Pulse Rate [ Anterior Bilateral Throughout] Pulse Rate [ From Monitor] Respiratory 36 H 39 H 38 H Rate Respiratory Rate [Anterior Bilateral Throughout] Blood Pressure 113/46 103/34 103/34 O2 Sat by Pulse 93 95 94 Oximetry 03/30/21 03/30/21 03/30/21 02:37 02:45 03:00 Temperature Pulse Rate 115 H 117 H Pulse Rate [ 114 H Anterior Bilateral Throughout] Pulse Rate [ From Monitor] Respiratory 41 H 43 H Rate Respiratory 36 H Rate [Anterior Bilateral Throughout] Blood Pressure 98/42 98/42 O2 Sat by Pulse 91 96 Oximetry 11/16/21 11/16/21 11/16/21 03:16 03:30 03:46 Temperature Pulse Rate 115 H 113 H Pulse Rate [ Anterior Bilateral Throughout] Pulse Rate [ From Monitor] Respiratory 41 H 33 H Rate Respiratory Rate [Anterior Bilateral Throughout] Blood Pressure 93/30 105/45 92/45 O2 Sat by Pulse 94 95 95 Oximetry 03/30/21 03/30/21 03/30/21 04:00 04:15 04:16 Temperature 98.6 F Pulse Rate 113 H 114 H 113 H Pulse Rate [ Anterior Bilateral Throughout] Pulse Rate [ 115 H From Monitor] Respiratory 33 H 30 H Rate Respiratory Rate [Anterior Bilateral Throughout] Blood Pressure 104/52 100/48 100/46 O2 Sat by Pulse 95 94 95 Oximetry 03/30/21 03/30/21 03/30/21 04:30 04:46 05:00 Temperature Pulse Rate 113 H 114 H 116 H Pulse Rate [ Anterior Bilateral Throughout] Pulse Rate [ From Monitor] Respiratory 23 27 H 28 H Rate Respiratory Rate [Anterior Bilateral Throughout] Blood Pressure 117/55 104/57 117/55 O2 Sat by Pulse 100 93 96 Oximetry 03/30/21 03/30/21 03/30/21 05:16 05:30 05:46 Temperature Pulse Rate 116 H 117 H 117 H Pulse Rate [ Anterior Bilateral Throughout] Pulse Rate [ From Monitor] Respiratory 27 H 38 H 22 Rate Respiratory Rate [Anterior Bilateral Throughout] Blood Pressure 111/53 111/53 104/48 O2 Sat by Pulse 96 97 97 Oximetry 03/30/21 03/30/21 03/30/21 06:00 06:16 06:30 Temperature Pulse Rate 119 H 120 H 120 H Pulse Rate [ Anterior Bilateral Throughout] Pulse Rate [ From Monitor] Respiratory 36 H 24 25 H Rate Respiratory Rate [Anterior Bilateral Throughout] Blood Pressure 104/48 82/56 99/44 O2 Sat by Pulse 96 98 98 Oximetry 03/30/21 03/30/21 06:46 07:00 Temperature Pulse Rate 122 H 122 H Pulse Rate [ Anterior Bilateral Throughout] Pulse Rate [ From Monitor] Respiratory 42 H 41 H Rate Respiratory Rate [Anterior Bilateral Throughout] Blood Pressure 117/52 99/44 O2 Sat by Pulse 97 97 Oximetry - Lab 03/30/21 04:00 03/30/21 04:00 Most recent lab results ABG pH 7.258 pH Units (7.350-7.450) L 03/29/21 Unknown ABG pCO2 50.6 mm Hg 03/29/21 Unknown ABG pO2 84.9 mm Hg (80.0-90.0) 03/29/21 Unknown ABG HCO3 22.1 mmol/L (20.0-26.0) 03/29/21 Unknown ABG O2 Saturation 95.9 % (95.0-99.0) 03/29/21 Unknown Calcium 8.4 mg/dL (8.4-10.2) 03/30/21 04:00 Phosphorus 10.30 mg/dL (2.5-4.5) H 03/30/21 04:00 Magnesium 2.10 mg/dL (1.7-2.3) 03/30/21 04:00 Urine Creatinine 40.1 mg/dL (0.1-20.0) H 03/14/21 17:50 Urine Sodium 124 mmol/L 03/14/21 17:50 Medications & Allergies - Medications Allergies/Adverse Reactions: Allergies acetaminophen [From Percocet] Adverse Reaction (Verified 03/13/21 12:45) Swelling hydrocodone bitartrate [From Vicodin] Adverse Reaction (Verified 03/13/21 12:45) Swelling oxycodone HCl [From Percocet] Adverse Reaction (Verified 03/13/21 12:45) Swelling Home Medications: Home Medications Medication Instructions Recorded Confirmed Last Taken Type Chlorhexidine Mouthwash [Peridex] 15 ml MM BID #1 bottle 10/11/20 03/13/21 Unknown Rx Clindamycin [Clindamycin CAP] 300 mg PO Q8H #21 cap 10/11/20 03/13/21 Unknown Rx Naproxen 500 mg PO Q12H PRN #12 tablet 10/11/20 03/13/21 Unknown Rx Butalb/Acetamin/Caff 50-325-40 1 - 2 tab PO Q6HR PRN #15 tab 12/05/20 03/13/21 Unknown Rx [Fioricet 50-325-40] Famotidine [Pepcid] 20 mg PO BID #30 tablet 12/05/20 03/13/21 Unknown Rx Ketorolac [Toradol] 10 mg PO Q8H PRN #20 tablet 12/05/20 03/13/21 Unknown Rx Ondansetron [Zofran Odt] 4 mg PO Q6HR PRN #20 tab.rapdis 12/05/20 03/13/21 Unknown Rx Albuterol Sulfate [Proair 90 mcg IH Q4HR PRN #2 aer.[email or web address] 01/01/21 03/13/21 Unknown Rx Respiclick] Mupirocin [Bactroban 2% OINT] 1 applic TP BID 7 Days #1 tube 01/01/21 03/13/21 Unknown Rx Triamcinolone Aceton 0.1% (Nf) 1 applic TP BID 14 Days #1 tube 01/01/21 03/13/21 Unknown Rx [Kenalog (NF)] predniSONE [Deltasone] 40 mg PO QDAY #8 tab 01/01/21 03/13/21 Unknown Rx Active Medications: Generic Name Dose Route Start Last Admin Trade Name Freq PRN Reason Stop Dose Admin Acetaminophen 650 mg 03/29/21 15:02 Acetaminophen 325 Mg/10.15 Ml Oral Liqd Unit Dose FEEDTUBE Q6H PRN Pain, Mild (1-3) Albuterol 2.5 mg 03/19/21 00:53 Albuterol 2.5 Mg/3 Ml Nebu IH Q4HRT PRN Shortness Of Breath Albuterol/Ipratropium 1 ampul 03/19/21 08:00 03/30/21 02:36 Ipratropium/Albuterol Sulfate 3 Ml Ampul.Neb IH 1 ampul Q6HRT INESSA Administration Lipase/Protease/Amylase 1 each 03/15/21 11:42 Lipase 10,500/Protease 25,000/Amylase 43,750 (Units) Dr White FEEDTUBE PRN PRN For Clogged Feeding Tube Apixaban 2.5 mg 03/29/21 13:00 03/29/21 23:34 Apixaban 2.5 Mg Tab PO 2.5 mg Q12HR INESSA Administration Protocol Ascorbic Acid 500 mg 03/14/21 22:00 03/29/21 22:24 Ascorbic Acid 500 Mg Tab PO 500 mg BID INESSA Administration Dextrose 50 ml 03/14/21 11:02 03/15/21 11:40 Dextrose 50% In Water (25gm) 50 Ml Syringe IV 50 ml Q30MIN PRN Administration Hypoglycemia Protocol Diphenhydramine HCl 25 mg 03/28/21 18:00 03/30/21 06:12 Diphenhydramine 50 Mg/Ml Vial IV 03/31/21 17:59 25 mg Q6H INESSA Administration Famotidine 10 mg 03/17/21 22:00 03/29/21 22:24 Famotidine 10 Mg Tab PO 10 mg BID INESSA Administration Fentanyl 50 mcg 03/15/21 10:43 03/28/21 09:25 Fentanyl 100 Mcg/2 Ml Inj IV 50 mcg Q10MIN PRN Administration ANALGESIA Hydralazine HCl 10 mg 03/15/21 10:10 03/15/21 10:32 Hydralazine 20 Mg/1 Ml Inj IV 10 mg Q4HR PRN Administration Hypertension Hydrophilic Ointment 1 applic 03/14/21 17:50 Lip Therapy Vaseline TP Q2HR PRN Dry Lips Propofol 1,000 mg in 100 mls @ 4.123 mls/hr 03/15/21 11:00 03/30/21 08:07 Diprivan 10 Mg/Ml IV 20 mcg/kg/min TITR INESSA 16.493 mls/hr Administration Protocol 5 MCG/KG/MIN Fentanyl Citrate 2,000 mcg in 100 mls @ 6.872 mls/hr 03/15/21 11:00 03/30/21 08:06 Fentanyl Drip Premix IV 4 mcg/kg/hr TITR INESSA 27.488 mls/hr Administration Protocol 1 MCG/KG/HR Sodium Chloride 500 mls @ 1 mls/hr 03/16/21 17:19 Nacl 0.9% 500 Ml IV DIRECT PRN ARTERIAL LINE FLUSH Vasopressin 20 unit/ Sodium 101 mls @ 9.09 mls/hr 03/21/21 16:00 03/24/21 08:10 Chloride IV 0 units/min TITR INESSA 0 mls/hr Titration Protocol 0.03 UNITS/MIN NORepinephrine/NS 8 MG-250 ML 8 mg in 250 mls @ 3.75 mls/hr 03/23/21 11:00 03/30/21 06:10 Norepinephrine/Ns 8 Mg-250 Ml (Double Conc) IV 2 mcg/min TITRATE INESSA 3.75 mls/hr Titration Protocol 2 MCG/MIN Sodium Chloride 100 mls @ 999 mls/hr 03/27/21 08:12 Nacl 0.9% IV KARLOS PRN Hypotension Cefepime HCl 2 gm in 100 mls @ 200 mls/hr 03/27/21 16:00 03/29/21 16:56 Cefepime/Ns 2 Gm/100 Ml IV 200 mls/hr Q24H INESSA Administration Protocol Insulin Human Lispro 0 unit 03/14/21 12:00 03/30/21 06:12 Insulin Lispro 100 Unit/Ml SUB-Q Not Given Q6HR [facility] Protocol Lorazepam 1 mg 03/13/21 19:40 03/18/21 14:11 Lorazepam 2 Mg/Ml Vial IV 1 mg Q4H PRN Administration Anxiety Methylprednisolone Sodium Succinate 40 mg 03/30/21 10:00 Methylprednisolone Sod Succinate 40 Mg/1 Ml Inj IV Q24HR [facility] Multi-Ingred Cream/Lotion/Oil/Oint 1 applic 03/14/21 17:50 Mineral Oil/Petrolatum, White Ophth Oint 3.5 Gm OU Q4HR PRN Dry Eye(s) Ondansetron HCl 4 mg 03/13/21 19:30 03/21/21 12:05 Ondansetron 4 Mg/2 Ml Inj IV 4 mg Q8H PRN Administration Nausea And Vomiting Senna/Docusate Sodium 1 tab 03/14/21 22:00 03/29/21 22:24 Sennosides/Docusate Sodium 8.6/50 Mg Tab FEEDTUBE 1 tab BID INESSA Administration Simple Syrup 15 ml 03/15/21 11:42 Simple Syrup 15 Ml FEEDTUBE PRN PRN Hypoglycemia Simple Syrup 30 ml 03/15/21 11:42 Simple Syrup 15 Ml FEEDTUBE PRN PRN Hypoglycemia Sodium Bicarbonate 325 mg 03/15/21 11:42 03/21/21 17:21 Sodium Bicarbonate 325 Mg Tab FEEDTUBE 325 mg PRN PRN Administration For Clogged Feeding Tube Sodium Chloride 10 ml 03/13/21 22:00 03/29/21 22:25 Sodium Chloride 0.9% 10 Ml Flush Syringe IV 10 ml BID INESSA Administration Sodium Chloride 10 ml 03/13/21 19:30 Sodium Chloride 0.9% 10 Ml Flush Syringe IV PRN PRN LINE FLUSH Zinc Sulfate 220 mg 03/14/21 22:00 03/29/21 22:24 Zinc Sulfate 220 Mg Cap PO 220 mg BID INESSA Administration
[2021-03-30] MEDS ORDERED: SODIUM CHLORIDE 0.9% 100 ML IV PRN (09:21)
[2021-03-30] MEDS: APIXABAN 2.5 MG TAB PO SCH ×2 (09:41→21:02)
[2021-03-30] MEDS: ZINC SULFATE 220 MG CAP PO SCH ×2 (09:41→21:02)
[2021-03-30] MEDS: FAMOTIDINE 10 MG TAB PO SCH ×2 (09:41→21:02)
[2021-03-30] MEDS: SENNOSIDES/DOCUSATE SODIUM 8.6/50 MG TAB FEEDTUBE SCH ×2 (09:41→21:02)
[2021-03-30] MEDS: ASCORBIC ACID 500 MG TAB PO SCH ×2 (09:41→21:03)
[2021-03-30] MEDS: MINERAL OIL/PETROLATUM, WHITE OPHTH OINT 3.5 GM OU PRN (09:43)
[2021-03-30] MEDS ORDERED: methylPREDNISolone Sod Succinate 40 MG/1 ML INJ IV SCH (10:00)
[2021-03-30] MEDS: NORepinephrine/NS 8 MG-250 ML 8 MG/250 ML INFUS..BTL IV SCH ×3 (11:55→23:02)
--- NOTE | 2021-03-30 12:51 | Progress Note ---
Assessment and Plan Cultures: SARS CoV2 PCR: Positive 03/13/2021 blood culture: No growth Resp cultures 03/14/2021: MSSA 03/23/2021 blood culture: No growth 03/23/2021 sputum culture: Usual respiratory maury 03/29/2021 blood culture: In process A/P: 31-year-old female with asthma, morbid obesity, Crohn's disease admitted with cough and shortness of breath: #Septic shock #Bilateral pneumonia: Secondary to COVID-19. Severe disease, then developed MSSA in the lungs. D-dimer very high initially, which has shown improvement. #Acute hypoxic respiratory failure: on the vent #Acute renal failure: progressive. Nephrology following, initiated HD. #Acute asthma exacerbation #Morbid obesity Recs: -Actemra given 03/15/2021, completed steroids, was not a candidate for remdesivir due to renal failure. Back on steroids per ICU team -continue Cefepime, renally dosed, D4 of 5 -trend d-dimer, CRP every 2-3 days -D-dimer improving, defer anticoagulation to primary team/ICU team -poor prognosis Donn Solano MD, FACP [facility] O: [phone] F: [phone] Subjective Date of service: 03/30/21 Principal diagnosis: Ac hypoxemic resp failure; AE-Asthma; SAI; Crohn's; COVID- 19; Pneumonia Interval history: Fever yesterday. Remains on the vent. On pressors. Steroids were restarted. Objective - Exam Narrative Exam: Physical Exam (reviewed in chart to minimize risk of transmission) Constitutional: deferred Head, Ears, Nose: deferred Eyes: deferred Neck: deferred Oral: deferred Cardiovascular: deferred Respiratory: deferred GI: deferred Musculoskeletal: deferred Skin: deferred Hem/Lymphatic: deferred Psych: deferred Neurological: deferred - Constitutional Vitals: Vital Signs Temp Pulse Resp BP Pulse Ox 98.6 F 121 H 38 H 206/184 96 03/30/21 04:00 03/30/21 12:46 03/30/21 12:46 03/30/21 12:46 03/30/21 12:46 Temperature -Last 24 Hours Temperature 98.6 F Temperature 98.8 F Temperature 99.5 F - Labs CBC & Chem 7: 03/30/21 04:00 03/30/21 04:00 Labs: Abnormal lab results 03/29/21 03/29/21 03/30/21 Range/Units 16:50 21:06 00:13 WBC (4.5-11.0) K/mm3 RBC (3.65-5.03) M/mm3 Hgb (10.1-14.3) gm/dl Hct (30.3-42.9) % MCH (28-32) pg RDW (13.2-15.2) % Plt Count (140-440) K/mm3 D-Dimer (0-234) ng/mlDDU ABG pH (7.320-7.450) POC ABG pCO2 (32.0-48.0) mmHg POC ABG pO2 (83-108) mmHg ABG pO2 64.9 L (80.0-90.0) mm Hg ABG Base Excess -5.2 L (-2.0-3.0) mmol/L ABG Hemoglobin (12.0-17.5) ABG Oxyhemoglobin (94-98) ABG Sodium (136.0-145.0) mmol/L ABG Potassium (3.40-4.50) mmol/L ABG Chloride (98-107) mmol/L ABG Glucose (65-95) mg/dL Oxyhemoglobin 85.1 L (95.0-99.0) % Sodium (137-145) mmol/L Potassium (3.6-5.0) mmol/L Chloride (98-107) mmol/L Carbon Dioxide (22-30) mmol/L BUN (7-17) mg/dL Creatinine (0.6-1.2) mg/dL Glucose (65-100) mg/dL POC Glucose 133 H 129 H (70-105) mg/dL Phosphorus (2.5-4.5) mg/dL C-Reactive Protein (0.00-1.30) mg/dL Arterial Blood Glucose (65-95) mg/dL Arterial Blood Ionized Calcium (4.6-5.3) mg/dL 03/30/21 03/30/21 03/30/21 Range/Units 04:00 04:00 04:00 WBC 15.7 H (4.5-11.0) K/mm3 RBC 3.18 L (3.65-5.03) M/mm3 Hgb 8.6 L (10.1-14.3) gm/dl Hct 27.3 L (30.3-42.9) % MCH 27 L (28-32) pg RDW 18.0 H (13.2-15.2) % Plt Count 86 L (140-440) K/mm3 D-Dimer 2607.12 H (0-234) ng/mlDDU ABG pH (7.320-7.450) POC ABG pCO2 (32.0-48.0) mmHg POC ABG pO2 (83-108) mmHg ABG pO2 (80.0-90.0) mm Hg ABG Base Excess (-2.0-3.0) mmol/L ABG Hemoglobin (12.0-17.5) ABG Oxyhemoglobin (94-98) ABG Sodium (136.0-145.0) mmol/L ABG Potassium (3.40-4.50) mmol/L ABG Chloride (98-107) mmol/L ABG Glucose (65-95) mg/dL Oxyhemoglobin (95.0-99.0) % Sodium 133 L (137-145) mmol/L Potassium 5.2 H D (3.6-5.0) mmol/L Chloride 91.5 L (98-107) mmol/L Carbon Dioxide 18 L (22-30) mmol/L BUN 101 H (7-17) mg/dL Creatinine 10.6 H (0.6-1.2) mg/dL Glucose 149 H (65-100) mg/dL POC Glucose (70-105) mg/dL Phosphorus 10.30 H (2.5-4.5) mg/dL C-Reactive Protein 21.50 H (0.00-1.30) mg/dL Arterial Blood Glucose (65-95) mg/dL Arterial Blood Ionized Calcium (4.6-5.3) mg/dL 03/30/21 03/30/21 03/30/21 Range/Units 06:02 10:36 11:48 WBC (4.5-11.0) K/mm3 RBC (3.65-5.03) M/mm3 Hgb (10.1-14.3) gm/dl Hct (30.3-42.9) % MCH (28-32) pg RDW (13.2-15.2) % Plt Count (140-440) K/mm3 D-Dimer (0-234) ng/mlDDU ABG pH 7.224 L (7.320-7.450) POC ABG pCO2 49.1 H (32.0-48.0) mmHg POC ABG pO2 61.5 L (83-108) mmHg ABG pO2 (80.0-90.0) mm Hg ABG Base Excess (-2.0-3.0) mmol/L ABG Hemoglobin 10.2 L (12.0-17.5) ABG Oxyhemoglobin 86.2 L (94-98) ABG Sodium 129.6 L (136.0-145.0) mmol/L ABG Potassium 5.4 H (3.40-4.50) mmol/L ABG Chloride 96.0 L (98-107) mmol/L ABG Glucose 161 H (65-95) mg/dL Oxyhemoglobin (95.0-99.0) % Sodium (137-145) mmol/L Potassium (3.6-5.0) mmol/L Chloride (98-107) mmol/L Carbon Dioxide (22-30) mmol/L BUN (7-17) mg/dL Creatinine (0.6-1.2) mg/dL Glucose (65-100) mg/dL POC Glucose 130 H 163 H (70-105) mg/dL Phosphorus (2.5-4.5) mg/dL C-Reactive Protein (0.00-1.30) mg/dL Arterial Blood Glucose 161 H (65-95) mg/dL Arterial Blood Ionized Calcium 4.4 L (4.6-5.3) mg/dL
--- NOTE | 2021-03-30 14:04 | Progress Note ---
Assessment and Plan Acute hypoxemic respiratory failure Acute asthma exacerbation Morbid obesity Crohn's disease Metabolic acidosis Acute kidney injury Coronavirus infection Pneumonia (CAP) Oropharyngeal dysphagia Obesity, if not mentioned above - resumed Decadron at 4 mg IV daily re: ? allergy / rash / autoimmune disease issues - will add Versed drip re: ventilator dyssynchrony - increased set minute ventilation to compensate pending dialysis - continue Apixaban for VTE prophylaxis - repeat ABG at 9pm and address - prognosis guarded but ARDS numbers improved overall - wean vasopressors for target MAP > 65 mmHg - continue care as below otherwise; - nephrology input appreciated; HD/UF for toxin and volume clearance - HD/UF sessions per nephrology prescription - continue Daily SAT and SBT assessment as tolerated - continue to wean supplemental oxygen for target O2 sat's > 90% acutely - VAP bundle addressed - continue lung protective strategies - continue bronchodilators with pulmonary hygiene per RT - wean per pulmonary driven protocols otherwise - continue accuchecks with glycemic control per SSI (While critically ill target blood glucose of 140-180 mg/dL; avoid hypoglycemia) - sedation prn for target RASS 0 to -1 - avoid nephrotoxins, renally dose all medications - continue to avoid benzodiazepine's, reduce the possibility of delirium - AB's per ID rec's (Cefepime) - prn analgesia per CPOT score - Maintenance of sleep-wake cycle, avoid delirium - continue enteral nutritional support at goal rate as tolerated - G.I. & VTE prophylaxis - PT/OT/ROM exercises - continue mobility protocols for pressure ulcer prophylaxis - Monitor hemodynamics closely - continue other care per attending / other consultants - discharge planning ongoing concurrently COVID SPECIFIC INTERVENTIONS - Actemra ordered if available - Remdesivir as per ID/Pulmonary developed protocols (not a candidate) - continue systemic steroids for severe COVID-19 infection empirically - follow repeat COVID tests results - zinc and vitamin C supplementation - Monitor inflammatory markers per facility protocol - ferritin, Ddimer, CRP - therapeutic anticoagulation per system Protocol based on d-dimer and clinical considerations (VTE prophylaxis) - Continue contact and airborne isolation .... Re-evaluate in am & prn CONDITION: CRITICAL PROGNOSIS: GUARDED CODE STATUS: FULL CODE The high probability of a clinically significant, sudden or life-threatening deterioration of the [respiratory, cardiovascular, renal & neurologic] system(s) required my full and direct attention, intervention and personal management. The aggregate critical care time was [34] minutes without overlap. Time includes spent on; [x] Data Review and interpretation [x] Patient assessment and monitoring of vital signs [x] Documentation [x] Medication orders and management Subjective Date of service: 03/30/21 Principal diagnosis: Ac hypoxemic resp failure; AE-Asthma; SAI; Crohn's; COVID- 19; Pneumonia Interval history: Patient is seen today for: Acute hypoxemic respiratory failure; AE-Asthma; SAI; Crohn's disease; COVID-19 infection; Pneumonia (CAP) Seen and examined at bedside; 24hour events reviewed; nursing and respiratory care staff consulted; no adverse overnight events reported to me; resting in bed; remains on MVS; for Dialysis today; still with fevers on Decadron; work of breathing also increased this am appropriately so re: fevers and acidosis which is mostly metabolic; no emesis or overt aspiration Objective Vital Signs - 12hr 03/30/21 03/30/21 03/30/21 02:16 02:30 02:37 Temperature Pulse Rate 112 H 114 H Pulse Rate [ 114 H Anterior Bilateral Throughout] Pulse Rate [ From Monitor] Respiratory 39 H 38 H Rate Respiratory 36 H Rate [Anterior Bilateral Throughout] Blood Pressure 103/34 103/34 O2 Sat by Pulse 95 94 Oximetry 03/30/21 03/30/21 03/30/21 02:45 03:00 03:16 Temperature Pulse Rate 115 H 117 H 115 H Pulse Rate [ Anterior Bilateral Throughout] Pulse Rate [ From Monitor] Respiratory 41 H 43 H 41 H Rate Respiratory Rate [Anterior Bilateral Throughout] Blood Pressure 98/42 98/42 93/30 O2 Sat by Pulse 91 96 94 Oximetry 03/30/21 03/30/21 03/30/21 03:30 03:46 04:00 Temperature 98.6 F Pulse Rate 113 H 113 H Pulse Rate [ Anterior Bilateral Throughout] Pulse Rate [ 115 H From Monitor] Respiratory 33 H 33 H Rate Respiratory Rate [Anterior Bilateral Throughout] Blood Pressure 105/45 92/45 104/52 O2 Sat by Pulse 95 95 95 Oximetry 03/30/21 03/30/21 03/30/21 04:15 04:16 04:30 Temperature Pulse Rate 114 H 113 H 113 H Pulse Rate [ Anterior Bilateral Throughout] Pulse Rate [ From Monitor] Respiratory 30 H 23 Rate Respiratory Rate [Anterior Bilateral Throughout] Blood Pressure 100/48 100/46 117/55 O2 Sat by Pulse 94 95 100 Oximetry 03/30/21 03/30/21 03/30/21 04:46 05:00 05:16 Temperature Pulse Rate 114 H 116 H 116 H Pulse Rate [ Anterior Bilateral Throughout] Pulse Rate [ From Monitor] Respiratory 27 H 28 H 27 H Rate Respiratory Rate [Anterior Bilateral Throughout] Blood Pressure 104/57 117/55 111/53 O2 Sat by Pulse 93 96 96 Oximetry 03/30/21 03/30/21 03/30/21 05:30 05:46 06:00 Temperature Pulse Rate 117 H 117 H 119 H Pulse Rate [ Anterior Bilateral Throughout] Pulse Rate [ From Monitor] Respiratory 38 H 22 36 H Rate Respiratory Rate [Anterior Bilateral Throughout] Blood Pressure 111/53 104/48 104/48 O2 Sat by Pulse 97 97 96 Oximetry 03/30/21 03/30/21 03/30/21 06:16 06:30 06:46 Temperature Pulse Rate 120 H 120 H 122 H Pulse Rate [ Anterior Bilateral Throughout] Pulse Rate [ From Monitor] Respiratory 24 25 H 42 H Rate Respiratory Rate [Anterior Bilateral Throughout] Blood Pressure 82/56 99/44 117/52 O2 Sat by Pulse 98 98 97 Oximetry 03/30/21 03/30/21 03/30/21 07:00 07:15 07:30 Temperature Pulse Rate 122 H 118 H 118 H Pulse Rate [ Anterior Bilateral Throughout] Pulse Rate [ From Monitor] Respiratory 41 H 36 H 37 H Rate Respiratory Rate [Anterior Bilateral Throughout] Blood Pressure 99/44 106/58 106/58 O2 Sat by Pulse 97 99 98 Oximetry 03/30/21 03/30/21 03/30/21 07:45 08:00 08:15 Temperature Pulse Rate 118 H 118 H 118 H Pulse Rate [ Anterior Bilateral Throughout] Pulse Rate [ From Monitor] Respiratory 38 H 28 H 38 H Rate Respiratory Rate [Anterior Bilateral Throughout] Blood Pressure 99/52 111/48 113/51 O2 Sat by Pulse 97 90 97 Oximetry 03/30/21 03/30/21 03/30/21 08:30 08:46 09:00 Temperature Pulse Rate 117 H 117 H 118 H Pulse Rate [ Anterior Bilateral Throughout] Pulse Rate [ From Monitor] Respiratory 30 H 38 H 34 H Rate Respiratory Rate [Anterior Bilateral Throughout] Blood Pressure 113/44 110/38 114/28 O2 Sat by Pulse 97 97 96 Oximetry 03/30/21 03/30/21 03/30/21 09:16 09:18 09:30 Temperature Pulse Rate 118 H 120 H Pulse Rate [ 122 H Anterior Bilateral Throughout] Pulse Rate [ From Monitor] Respiratory 32 H 40 H Rate Respiratory 33 H Rate [Anterior Bilateral Throughout] Blood Pressure 111/48 110/38 O2 Sat by Pulse 98 91 Oximetry 03/30/21 03/30/21 03/30/21 09:46 10:00 10:16 Temperature Pulse Rate 121 H 121 H 122 H Pulse Rate [ Anterior Bilateral Throughout] Pulse Rate [ From Monitor] Respiratory 33 H 17 34 H Rate Respiratory Rate [Anterior Bilateral Throughout] Blood Pressure 110/38 102/37 119/40 O2 Sat by Pulse 96 96 97 Oximetry 03/30/21 03/30/21 03/30/21 10:30 10:46 11:00 Temperature Pulse Rate 121 H 122 H 123 H Pulse Rate [ Anterior Bilateral Throughout] Pulse Rate [ From Monitor] Respiratory 26 H 21 20 Rate Respiratory Rate [Anterior Bilateral Throughout] Blood Pressure 119/40 95/68 138/78 O2 Sat by Pulse 95 97 96 Oximetry 03/30/21 03/30/21 03/30/21 11:16 11:30 11:37 Temperature Pulse Rate 120 H 123 H 125 H Pulse Rate [ Anterior Bilateral Throughout] Pulse Rate [ From Monitor] Respiratory 30 H 32 H Rate Respiratory Rate [Anterior Bilateral Throughout] Blood Pressure 144/127 96/77 99/64 O2 Sat by Pulse 95 95 91 Oximetry 03/30/21 03/30/21 03/30/21 11:46 12:00 12:16 Temperature Pulse Rate 126 H 124 H 121 H Pulse Rate [ Anterior Bilateral Throughout] Pulse Rate [ From Monitor] Respiratory 27 H 36 H 30 H Rate Respiratory Rate [Anterior Bilateral Throughout] Blood Pressure 98/56 98/56 206/184 O2 Sat by Pulse 97 95 96 Oximetry 03/30/21 03/30/21 03/30/21 12:30 12:46 13:00 Temperature Pulse Rate 121 H 121 H 121 H Pulse Rate [ Anterior Bilateral Throughout] Pulse Rate [ From Monitor] Respiratory 36 H 38 H 33 H Rate Respiratory Rate [Anterior Bilateral Throughout] Blood Pressure 206/184 206/184 206/184 O2 Sat by Pulse 96 96 96 Oximetry Constitutional: appears uncomfortable, other (morbidly obese female with moderate ventilator dyssynchrony) Eyes: non-icteric, other (scleral erythema / bleeding is improving) ENT: oropharynx moist, other (ETT 25 cm BALJINDER) Neck: supple, no lymphadenopathy, no JVD, other (large circumference) Effort: mildly labored Ascultation: Bilateral: diminished breath sounds, rhonchi Percussion: Bilateral: not dull Cardiovascular: regular rate and rhythm Gastrointestinal: normoactive bowel sounds, soft, non-tender, non-distended (protuberant) Integumentary: rash ( ), other Extremities: no cyanosis, no edema, pulses normal, no ischemia or petechiae Neurologic: non-focal exam (grossly), pupils equal and round, CN II-XII normal, motor strength normal and, other (moves all extremities spontaneously) Psychiatric: other (unasble to assess) CBC and BMP: 03/30/21 04:00 03/30/21 04:00 ABG, PT/INR, D-dimer: ABG ABG pH 7.224 (7.320-7.450) L 03/30/21 10:36 POC ABG pCO2 49.1 mmHg (32.0-48.0) H 03/30/21 10:36 ABG pCO2 50.6 mm Hg 03/29/21 Unknown POC ABG pO2 61.5 mmHg (83-108) L 03/30/21 10:36 ABG pO2 84.9 mm Hg (80.0-90.0) 03/29/21 Unknown POC ABG HCO3 19.8 03/30/21 10:36 ABG O2 Saturation 87.2 (0-100) 03/30/21 10:36 PT/INR, D-dimer PT 15.8 Sec. (12.2-14.9) H 03/22/21 13:40 INR 1.14 (0.87-1.13) H 03/22/21 13:40 D-Dimer 2607.12 ng/mlDDU (0-234) H 03/30/21 04:00 Abnormal lab findings: Abnormal Labs 03/13/21 03/13/21 03/13/21 13:26 13:26 15:40 WBC RBC Hgb Hct MCH 27 L RDW 17.0 H Plt Count Lymph % (Auto) [place] # (Auto) Eos # (Auto) Seg Neutrophils % Seg Neutrophils # PT INR D-Dimer ABG pH POC ABG pCO2 POC ABG pO2 ABG pO2 ABG HCO3 ABG O2 Saturation ABG Base Excess ABG Hemoglobin ABG Oxyhemoglobin ABG Sodium ABG Potassium ABG Chloride ABG Glucose Oxyhemoglobin Carboxyhemoglobin Sodium 136 L Potassium Chloride Carbon Dioxide BUN Creatinine Glucose 125 H 130 H POC Glucose Hemoglobin A1c Calcium Phosphorus Magnesium Lactate Dehydrogenase 235 H C-Reactive Protein 4.30 H Total Protein Albumin Triglycerides Arterial Blood Glucose Arterial Blood Ionized Calcium Urine Creatinine Random Vancomycin Coronavirus (PCR) Crossmatch 03/13/21 03/14/21 03/14/21 21:33 03:35 06:21 WBC 20.0 H RBC Hgb Hct MCH 27 L RDW 17.5 H Plt Count Lymph % (Auto) 7.8 L [place] # (Auto) 1.3 H Eos # (Auto) Seg Neutrophils % 85.4 H Seg Neutrophils # 17.1 H PT INR D-Dimer ABG pH 7.323 L 7.234 L POC ABG pCO2 POC ABG pO2 ABG pO2 69.8 L ABG HCO3 ABG O2 Saturation 92.9 L 94.9 L ABG Base Excess -3.3 L -5.4 L ABG Hemoglobin ABG Oxyhemoglobin ABG Sodium ABG Potassium ABG Chloride ABG Glucose Oxyhemoglobin 91.2 L 93.2 L Carboxyhemoglobin Sodium Potassium Chloride Carbon Dioxide BUN Creatinine Glucose POC Glucose Hemoglobin A1c Calcium Phosphorus Magnesium Lactate Dehydrogenase C-Reactive Protein Total Protein Albumin Triglycerides Arterial Blood Glucose Arterial Blood Ionized Calcium Urine Creatinine Random Vancomycin Coronavirus (PCR) Crossmatch 03/14/21 03/14/21 03/14/21 06:21 07:47 11:21 WBC RBC Hgb Hct MCH RDW Plt Count Lymph % (Auto) [place] # (Auto) Eos # (Auto) Seg Neutrophils % Seg Neutrophils # PT INR D-Dimer ABG pH POC ABG pCO2 POC ABG pO2 ABG pO2 ABG HCO3 ABG O2 Saturation ABG Base Excess ABG Hemoglobin ABG Oxyhemoglobin ABG Sodium ABG Potassium ABG Chloride ABG Glucose Oxyhemoglobin Carboxyhemoglobin Sodium 136 L 136 L Potassium 6.2 H* D 5.4 H Chloride Carbon Dioxide 21 L 21 L BUN Creatinine 1.5 H D 1.8 H Glucose 144 H 141 H POC Glucose 147 H Hemoglobin A1c Calcium Phosphorus Magnesium Lactate Dehydrogenase C-Reactive Protein Total Protein 8.7 H 9.2 H Albumin 3.8 L Triglycerides Arterial Blood Glucose Arterial Blood Ionized Calcium Urine Creatinine Random Vancomycin Coronavirus (PCR) Crossmatch 03/14/21 03/14/21 03/14/21 17:29 17:50 18:35 WBC RBC Hgb Hct MCH RDW Plt Count Lymph % (Auto) [place] # (Auto) Eos # (Auto) Seg Neutrophils % Seg Neutrophils # PT INR D-Dimer ABG pH POC ABG pCO2 POC ABG pO2 ABG pO2 ABG HCO3 ABG O2 Saturation ABG Base Excess ABG Hemoglobin ABG Oxyhemoglobin ABG Sodium ABG Potassium ABG Chloride ABG Glucose Oxyhemoglobin Carboxyhemoglobin Sodium 135 L Potassium 6.4 H* Chloride Carbon Dioxide 15 L BUN 26 H Creatinine 3.4 H D Glucose 165 H POC Glucose 209 H Hemoglobin A1c Calcium Phosphorus Magnesium Lactate Dehydrogenase C-Reactive Protein Total Protein Albumin Triglycerides Arterial Blood Glucose Arterial Blood Ionized Calcium Urine Creatinine 40.1 H Random Vancomycin Coronavirus (PCR) Crossmatch 03/14/21 03/14/21 03/14/21 18:46 22:23 23:52 WBC RBC Hgb Hct MCH RDW Plt Count Lymph % (Auto) [place] # (Auto) Eos # (Auto) Seg Neutrophils % Seg Neutrophils # PT INR D-Dimer ABG pH 7.270 L POC ABG pCO2 POC ABG pO2 63.4 L ABG pO2 ABG HCO3 ABG O2 Saturation ABG Base Excess ABG Hemoglobin ABG Oxyhemoglobin 90.2 L ABG Sodium 134.9 L ABG Potassium 5.3 H ABG Chloride ABG Glucose 134 H Oxyhemoglobin Carboxyhemoglobin Sodium 136 L Potassium 5.2 H Chloride Carbon Dioxide 20 L BUN 29 H Creatinine 3.6 H Glucose 236 H POC Glucose 128 H Hemoglobin A1c Calcium Phosphorus Magnesium Lactate Dehydrogenase C-Reactive Protein Total Protein Albumin 3.2 L Triglycerides Arterial Blood Glucose 134 H Arterial Blood Ionized Calcium Urine Creatinine Random Vancomycin Coronavirus (PCR) Crossmatch 03/14/21 03/15/21 03/15/21 Unknown 05:00 05:09 WBC 22.5 H RBC Hgb Hct MCH 27 L RDW 17.6 H Plt Count Lymph % (Auto) [place] # (Auto) Eos # (Auto) Seg Neutrophils % Seg Neutrophils # PT INR D-Dimer ABG pH POC ABG pCO2 POC ABG pO2 ABG pO2 ABG HCO3 ABG O2 Saturation ABG Base Excess ABG Hemoglobin ABG Oxyhemoglobin ABG Sodium ABG Potassium ABG Chloride ABG Glucose Oxyhemoglobin Carboxyhemoglobin Sodium Potassium Chloride Carbon Dioxide BUN Creatinine Glucose POC Glucose 116 H Hemoglobin A1c Calcium Phosphorus Magnesium Lactate Dehydrogenase C-Reactive Protein Total Protein Albumin Triglycerides Arterial Blood Glucose Arterial Blood Ionized Calcium Urine Creatinine Random Vancomycin Coronavirus (PCR) Positive A Crossmatch 03/15/21 03/15/21 03/15/21 05:09 05:09 05:09 WBC RBC Hgb Hct MCH RDW Plt Count Lymph % (Auto) [place] # (Auto) Eos # (Auto) Seg Neutrophils % Seg Neutrophils # PT INR D-Dimer ABG pH POC ABG pCO2 POC ABG pO2 ABG pO2 ABG HCO3 ABG O2 Saturation ABG Base Excess ABG Hemoglobin ABG Oxyhemoglobin ABG Sodium ABG Potassium ABG Chloride ABG Glucose Oxyhemoglobin Carboxyhemoglobin Sodium 136 L Potassium 6.5 H* D Chloride Carbon Dioxide 17 L BUN 41 H Creatinine 5.3 H Glucose 128 H POC Glucose Hemoglobin A1c 6.3 H Calcium Phosphorus Magnesium Lactate Dehydrogenase C-Reactive Protein 12.10 H Total Protein Albumin 3.1 L Triglycerides Arterial Blood Glucose Arterial Blood Ionized Calcium Urine Creatinine Random Vancomycin Coronavirus (PCR) Crossmatch 03/15/21 03/15/21 03/15/21 10:00 21:50 23:39 WBC RBC Hgb Hct MCH RDW Plt Count Lymph % (Auto) [place] # (Auto) Eos # (Auto) Seg Neutrophils % Seg Neutrophils # PT INR D-Dimer ABG pH 7.098 L POC ABG pCO2 72.7 H POC ABG pO2 ABG pO2 162.5 H ABG HCO3 ABG O2 Saturation ABG Base Excess ABG Hemoglobin 10.1 L ABG Oxyhemoglobin ABG Sodium ABG Potassium 5.7 H ABG Chloride ABG Glucose Oxyhemoglobin Carboxyhemoglobin 0.4 L Sodium Potassium Chloride Carbon Dioxide BUN Creatinine Glucose POC Glucose 156 H Hemoglobin A1c Calcium Phosphorus Magnesium Lactate Dehydrogenase C-Reactive Protein Total Protein Albumin Triglycerides Arterial Blood Glucose Arterial Blood Ionized Calcium Urine Creatinine Random Vancomycin Coronavirus (PCR) Crossmatch 03/16/21 03/16/21 03/16/21 05:00 05:30 05:30 WBC 16.7 H RBC 3.59 L Hgb 9.6 L Hct 30.1 L MCH 27 L RDW 17.5 H Plt Count Lymph % (Auto) [place] # (Auto) Eos # (Auto) Seg Neutrophils % Seg Neutrophils # PT INR D-Dimer ABG pH POC ABG pCO2 POC ABG pO2 ABG pO2 ABG HCO3 ABG O2 Saturation ABG Base Excess ABG Hemoglobin ABG Oxyhemoglobin ABG Sodium ABG Potassium ABG Chloride ABG Glucose Oxyhemoglobin Carboxyhemoglobin Sodium Potassium Chloride Carbon Dioxide BUN 46 H Creatinine 6.2 H Glucose 131 H POC Glucose Hemoglobin A1c Calcium Phosphorus 6.00 H D Magnesium Lactate Dehydrogenase 318 H C-Reactive Protein 18.60 H Total Protein Albumin 3.0 L Triglycerides Arterial Blood Glucose Arterial Blood Ionized Calcium Urine Creatinine Random Vancomycin Coronavirus (PCR) Crossmatch 03/16/21 03/16/21 03/16/21 05:51 06:37 08:58 WBC RBC Hgb Hct MCH RDW Plt Count Lymph % (Auto) [place] # (Auto) Eos # (Auto) Seg Neutrophils % Seg Neutrophils # PT INR D-Dimer 3041.12 H ABG pH POC ABG pCO2 POC ABG pO2 ABG pO2 141.5 H ABG HCO3 ABG O2 Saturation ABG Base Excess ABG Hemoglobin 9.7 L ABG Oxyhemoglobin ABG Sodium ABG Potassium ABG Chloride ABG Glucose Oxyhemoglobin Carboxyhemoglobin Sodium Potassium Chloride Carbon Dioxide BUN Creatinine Glucose POC Glucose 126 H Hemoglobin A1c Calcium Phosphorus Magnesium Lactate Dehydrogenase C-Reactive Protein Total Protein Albumin Triglycerides Arterial Blood Glucose Arterial Blood Ionized Calcium Urine Creatinine Random Vancomycin Coronavirus (PCR) Crossmatch 03/16/21 03/16/21 03/16/21 12:11 16:51 21:00 WBC RBC Hgb Hct MCH RDW Plt Count Lymph % (Auto) [place] # (Auto) Eos # (Auto) Seg Neutrophils % Seg Neutrophils # PT INR D-Dimer ABG pH 7.239 L POC ABG pCO2 61.5 H POC ABG pO2 80.8 L ABG pO2 ABG HCO3 ABG O2 Saturation ABG Base Excess ABG Hemoglobin 11.4 L ABG Oxyhemoglobin 93.5 L ABG Sodium ABG Potassium 5.4 H ABG Chloride ABG Glucose 137 H Oxyhemoglobin Carboxyhemoglobin 0.2 L Sodium Potassium Chloride Carbon Dioxide BUN Creatinine Glucose POC Glucose 156 H 133 H Hemoglobin A1c Calcium Phosphorus Magnesium Lactate Dehydrogenase C-Reactive Protein Total Protein Albumin Triglycerides Arterial Blood Glucose 137 H Arterial Blood Ionized Calcium Urine Creatinine Random Vancomycin Coronavirus (PCR) Crossmatch 03/16/21 03/17/21 03/17/21 23:42 05:23 05:23 WBC 18.4 H RBC Hgb Hct MCH 27 L RDW 17.4 H Plt Count Lymph % (Auto) [place] # (Auto) Eos # (Auto) Seg Neutrophils % Seg Neutrophils # PT INR D-Dimer ABG pH POC ABG pCO2 POC ABG pO2 ABG pO2 ABG HCO3 ABG O2 Saturation ABG Base Excess ABG Hemoglobin ABG Oxyhemoglobin ABG Sodium ABG Potassium ABG Chloride ABG Glucose Oxyhemoglobin Carboxyhemoglobin Sodium Potassium 5.2 H Chloride Carbon Dioxide 21 L BUN 79 H Creatinine 8.6 H Glucose 124 H POC Glucose 133 H Hemoglobin A1c Calcium Phosphorus Magnesium Lactate Dehydrogenase C-Reactive Protein Total Protein Albumin 3.2 L Triglycerides 285 H Arterial Blood Glucose Arterial Blood Ionized Calcium Urine Creatinine Random Vancomycin Coronavirus (PCR) Crossmatch 03/17/21 03/17/21 03/17/21 05:23 10:48 12:20 WBC RBC Hgb Hct MCH RDW Plt Count Lymph % (Auto) [place] # (Auto) Eos # (Auto) Seg Neutrophils % Seg Neutrophils # PT INR D-Dimer ABG pH 7.294 L POC ABG pCO2 POC ABG pO2 ABG pO2 90.3 H ABG HCO3 ABG O2 Saturation ABG Base Excess ABG Hemoglobin 9.9 L ABG Oxyhemoglobin ABG Sodium ABG Potassium ABG Chloride ABG Glucose Oxyhemoglobin Carboxyhemoglobin Sodium Potassium 5.2 H Chloride Carbon Dioxide 21 L BUN 79 H Creatinine 8.4 H Glucose 125 H POC Glucose 171 H Hemoglobin A1c Calcium Phosphorus 9.90 H D Magnesium 2.40 H Lactate Dehydrogenase C-Reactive Protein Total Protein Albumin Triglycerides Arterial Blood Glucose Arterial Blood Ionized Calcium Urine Creatinine Random Vancomycin Coronavirus (PCR) Crossmatch 03/17/21 03/17/21 03/18/21 17:24 21:00 04:30 WBC RBC Hgb Hct MCH RDW Plt Count Lymph % (Auto) [place] # (Auto) Eos # (Auto) Seg Neutrophils % Seg Neutrophils # PT INR D-Dimer 9953.09 H ABG pH 7.310 L POC ABG pCO2 54.5 H POC ABG pO2 62.3 L ABG pO2 ABG HCO3 ABG O2 Saturation ABG Base Excess ABG Hemoglobin 10.2 L ABG Oxyhemoglobin 88.6 L ABG Sodium ABG Potassium 4.7 H ABG Chloride ABG Glucose 99 H Oxyhemoglobin Carboxyhemoglobin 0.3 L Sodium Potassium Chloride Carbon Dioxide BUN Creatinine Glucose POC Glucose 121 H Hemoglobin A1c Calcium Phosphorus Magnesium Lactate Dehydrogenase C-Reactive Protein Total Protein Albumin Triglycerides Arterial Blood Glucose 99 H Arterial Blood Ionized Calcium 4.3 L Urine Creatinine Random Vancomycin Coronavirus (PCR) Crossmatch 03/18/21 03/18/21 03/18/21 04:30 04:30 11:34 WBC 12.8 H RBC 3.49 L Hgb 9.4 L Hct 29.3 L MCH 27 L RDW 17.4 H Plt Count Lymph % (Auto) [place] # (Auto) Eos # (Auto) Seg Neutrophils % Seg Neutrophils # PT INR D-Dimer ABG pH POC ABG pCO2 POC ABG pO2 ABG pO2 ABG HCO3 ABG O2 Saturation ABG Base Excess ABG Hemoglobin ABG Oxyhemoglobin ABG Sodium ABG Potassium ABG Chloride ABG Glucose Oxyhemoglobin Carboxyhemoglobin Sodium Potassium Chloride Carbon Dioxide BUN 69 H Creatinine 7.3 H Glucose POC Glucose 114 H Hemoglobin A1c Calcium 8.2 L Phosphorus 7.60 H D Magnesium Lactate Dehydrogenase 477 H C-Reactive Protein 6.90 H Total Protein Albumin Triglycerides Arterial Blood Glucose Arterial Blood Ionized Calcium Urine Creatinine Random Vancomycin Coronavirus (PCR) Crossmatch 03/18/21 03/19/21 03/19/21 21:44 04:13 04:13 WBC 13.7 H RBC 3.32 L Hgb 9.0 L Hct 28.1 L MCH 27 L RDW 16.9 H Plt Count Lymph % (Auto) [place] # (Auto) Eos # (Auto) Seg Neutrophils % Seg Neutrophils # PT INR D-Dimer ABG pH 7.290 L POC ABG pCO2 POC ABG pO2 ABG pO2 119.7 H ABG HCO3 28.0 H ABG O2 Saturation ABG Base Excess ABG Hemoglobin 9.6 L ABG Oxyhemoglobin ABG Sodium ABG Potassium ABG Chloride ABG Glucose Oxyhemoglobin Carboxyhemoglobin Sodium Potassium Chloride Carbon Dioxide BUN Creatinine Glucose POC Glucose Hemoglobin A1c Calcium Phosphorus Magnesium Lactate Dehydrogenase C-Reactive Protein Total Protein Albumin Triglycerides Arterial Blood Glucose Arterial Blood Ionized Calcium Urine Creatinine Random Vancomycin 43.5 H Coronavirus (PCR) Crossmatch 03/19/21 03/19/21 03/19/21 04:13 05:59 11:40 WBC RBC Hgb Hct MCH RDW Plt Count Lymph % (Auto) [place] # (Auto) Eos # (Auto) Seg Neutrophils % Seg Neutrophils # PT INR D-Dimer ABG pH POC ABG pCO2 POC ABG pO2 ABG pO2 ABG HCO3 ABG O2 Saturation ABG Base Excess ABG Hemoglobin ABG Oxyhemoglobin ABG Sodium ABG Potassium ABG Chloride ABG Glucose Oxyhemoglobin Carboxyhemoglobin Sodium Potassium Chloride Carbon Dioxide BUN 55 H Creatinine 7.0 H Glucose POC Glucose 116 H 145 H Hemoglobin A1c Calcium 8.1 L Phosphorus 7.90 H Magnesium Lactate Dehydrogenase C-Reactive Protein Total Protein Albumin Triglycerides Arterial Blood Glucose Arterial Blood Ionized Calcium Urine Creatinine Random Vancomycin Coronavirus (PCR) Crossmatch 03/19/21 03/19/21 03/20/21 17:01 23:41 04:00 WBC 15.6 H RBC 3.55 L Hgb 9.6 L Hct MCH 27 L RDW 16.8 H Plt Count 139 L Lymph % (Auto) [place] # (Auto) Eos # (Auto) Seg Neutrophils % Seg Neutrophils # PT INR D-Dimer ABG pH POC ABG pCO2 POC ABG pO2 ABG pO2 ABG HCO3 ABG O2 Saturation ABG Base Excess ABG Hemoglobin ABG Oxyhemoglobin ABG Sodium ABG Potassium ABG Chloride ABG Glucose Oxyhemoglobin Carboxyhemoglobin Sodium Potassium Chloride Carbon Dioxide BUN Creatinine Glucose POC Glucose 111 H 118 H Hemoglobin A1c Calcium Phosphorus Magnesium Lactate Dehydrogenase C-Reactive Protein Total Protein Albumin Triglycerides Arterial Blood Glucose Arterial Blood Ionized Calcium Urine Creatinine Random Vancomycin Coronavirus (PCR) Crossmatch 03/20/21 03/20/21 03/20/21 04:00 04:00 04:37 WBC RBC Hgb Hct MCH RDW Plt Count Lymph % (Auto) [place] # (Auto) Eos # (Auto) Seg Neutrophils % Seg Neutrophils # PT INR D-Dimer > 49296 H ABG pH 7.306 L POC ABG pCO2 POC ABG pO2 ABG pO2 ABG HCO3 27.9 H ABG O2 Saturation ABG Base Excess ABG Hemoglobin 5.2 L ABG Oxyhemoglobin ABG Sodium ABG Potassium ABG Chloride ABG Glucose Oxyhemoglobin Carboxyhemoglobin Sodium Potassium 5.2 H Chloride 97.6 L Carbon Dioxide BUN 52 H Creatinine 6.2 H Glucose 104 H POC Glucose Hemoglobin A1c Calcium Phosphorus 8.60 H Magnesium Lactate Dehydrogenase C-Reactive Protein 6.90 H Total Protein Albumin Triglycerides Arterial Blood Glucose Arterial Blood Ionized Calcium Urine Creatinine Random Vancomycin Coronavirus (PCR) Crossmatch 03/20/21 03/20/21 03/20/21 13:50 17:46 17:56 WBC RBC Hgb Hct MCH RDW Plt Count Lymph % (Auto) [place] # (Auto) Eos # (Auto) Seg Neutrophils % Seg Neutrophils # PT INR D-Dimer ABG pH POC ABG pCO2 POC ABG pO2 ABG pO2 ABG HCO3 ABG O2 Saturation ABG Base Excess ABG Hemoglobin ABG Oxyhemoglobin ABG Sodium ABG Potassium ABG Chloride ABG Glucose Oxyhemoglobin Carboxyhemoglobin Sodium Potassium Chloride Carbon Dioxide BUN 63 H 43 H Creatinine Glucose POC Glucose 145 H Hemoglobin A1c Calcium Phosphorus Magnesium Lactate Dehydrogenase C-Reactive Protein Total Protein Albumin Triglycerides Arterial Blood Glucose Arterial Blood Ionized Calcium Urine Creatinine Random Vancomycin Coronavirus (PCR) Crossmatch 03/20/21 03/21/21 03/21/21 23:18 06:58 06:58 WBC 14.4 H RBC 3.41 L Hgb 9.5 L Hct 28.6 L MCH RDW 17.4 H Plt Count 107 L Lymph % (Auto) [place] # (Auto) Eos # (Auto) Seg Neutrophils % Seg Neutrophils # PT INR D-Dimer ABG pH POC ABG pCO2 POC ABG pO2 ABG pO2 ABG HCO3 ABG O2 Saturation ABG Base Excess ABG Hemoglobin ABG Oxyhemoglobin ABG Sodium ABG Potassium ABG Chloride ABG Glucose Oxyhemoglobin Carboxyhemoglobin Sodium Potassium Chloride Carbon Dioxide BUN 60 H Creatinine 7.7 H Glucose POC Glucose 106 H Hemoglobin A1c Calcium Phosphorus Magnesium Lactate Dehydrogenase C-Reactive Protein Total Protein Albumin Triglycerides Arterial Blood Glucose Arterial Blood Ionized Calcium Urine Creatinine Random Vancomycin Coronavirus (PCR) Crossmatch 03/21/21 03/21/21 03/21/21 11:11 18:04 Unknown WBC RBC Hgb Hct MCH RDW Plt Count Lymph % (Auto) [place] # (Auto) Eos # (Auto) Seg Neutrophils % Seg Neutrophils # PT INR D-Dimer ABG pH 7.270 L POC ABG pCO2 58.7 H POC ABG pO2 76.9 L ABG pO2 ABG HCO3 ABG O2 Saturation ABG Base Excess ABG Hemoglobin 9.9 L ABG Oxyhemoglobin 92.4 L ABG Sodium 135.8 L ABG Potassium 4.6 H ABG Chloride ABG Glucose Oxyhemoglobin Carboxyhemoglobin 0.1 L Sodium Potassium Chloride Carbon Dioxide BUN Creatinine Glucose POC Glucose 109 H 141 H Hemoglobin A1c Calcium Phosphorus Magnesium Lactate Dehydrogenase C-Reactive Protein Total Protein Albumin Triglycerides Arterial Blood Glucose Arterial Blood Ionized Calcium 4.5 L Urine Creatinine Random Vancomycin Coronavirus (PCR) Crossmatch 03/22/21 03/22/21 03/22/21 03:09 07:10 10:00 WBC RBC Hgb Hct MCH RDW Plt Count Lymph % (Auto) [place] # (Auto) Eos # (Auto) Seg Neutrophils % Seg Neutrophils # PT INR D-Dimer ABG pH 7.206 L 7.245 L POC ABG pCO2 55.6 H POC ABG pO2 ABG pO2 90.6 H ABG HCO3 ABG O2 Saturation ABG Base Excess -4.4 L ABG Hemoglobin 9.0 L 8.4 L ABG Oxyhemoglobin ABG Sodium 123.4 L ABG Potassium 5.6 H ABG Chloride ABG Glucose 106 H Oxyhemoglobin 94.5 L Carboxyhemoglobin 0.1 L Sodium Potassium 5.4 H Chloride 96.8 L Carbon Dioxide BUN 89 H Creatinine 8.7 H Glucose 131 H POC Glucose Hemoglobin A1c Calcium Phosphorus Magnesium Lactate Dehydrogenase C-Reactive Protein 9.40 H Total Protein Albumin Triglycerides Arterial Blood Glucose 106 H Arterial Blood Ionized Calcium Urine Creatinine Random Vancomycin Coronavirus (PCR) Crossmatch 03/22/21 03/22/21 03/22/21 10:00 12:37 13:19 WBC RBC 3.05 L Hgb 8.4 L Hct 25.5 L MCH RDW 17.5 H Plt Count 108 L Lymph % (Auto) [place] # (Auto) Eos # (Auto) Seg Neutrophils % Seg Neutrophils # PT INR D-Dimer ABG pH POC ABG pCO2 POC ABG pO2 ABG pO2 ABG HCO3 ABG O2 Saturation ABG Base Excess ABG Hemoglobin ABG Oxyhemoglobin ABG Sodium ABG Potassium ABG Chloride ABG Glucose Oxyhemoglobin Carboxyhemoglobin Sodium Potassium Chloride Carbon Dioxide BUN Creatinine 8.7 H Glucose POC Glucose 140 H Hemoglobin A1c Calcium Phosphorus Magnesium Lactate Dehydrogenase C-Reactive Protein Total Protein Albumin Triglycerides Arterial Blood Glucose Arterial Blood Ionized Calcium Urine Creatinine Random Vancomycin Coronavirus (PCR) Crossmatch 03/22/21 03/22/21 03/22/21 13:40 17:14 18:21 WBC RBC Hgb Hct MCH RDW Plt Count Lymph % (Auto) [place] # (Auto) Eos # (Auto) Seg Neutrophils % Seg Neutrophils # PT 15.8 H INR 1.14 H D-Dimer > 98024 H ABG pH POC ABG pCO2 POC ABG pO2 ABG pO2 ABG HCO3 ABG O2 Saturation ABG Base Excess ABG Hemoglobin ABG Oxyhemoglobin ABG Sodium ABG Potassium ABG Chloride ABG Glucose Oxyhemoglobin Carboxyhemoglobin Sodium Potassium Chloride Carbon Dioxide BUN Creatinine Glucose POC Glucose 117 H 112 H Hemoglobin A1c Calcium Phosphorus Magnesium Lactate Dehydrogenase C-Reactive Protein Total Protein Albumin Triglycerides Arterial Blood Glucose Arterial Blood Ionized Calcium Urine Creatinine Random Vancomycin Coronavirus (PCR) Crossmatch 03/22/21 03/22/21 03/23/21 21:25 22:57 04:30 WBC RBC Hgb Hct MCH RDW Plt Count Lymph % (Auto) [place] # (Auto) Eos # (Auto) Seg Neutrophils % Seg Neutrophils # PT INR D-Dimer ABG pH 7.188 L* POC ABG pCO2 POC ABG pO2 ABG pO2 97.9 H ABG HCO3 ABG O2 Saturation ABG Base Excess -3.7 L ABG Hemoglobin 9.2 L ABG Oxyhemoglobin ABG Sodium ABG Potassium ABG Chloride ABG Glucose Oxyhemoglobin 94.4 L Carboxyhemoglobin Sodium Potassium Chloride Carbon Dioxide BUN Creatinine Glucose POC Glucose 106 H Hemoglobin A1c Calcium Phosphorus Magnesium Lactate Dehydrogenase C-Reactive Protein Total Protein Albumin Triglycerides 381 H Arterial Blood Glucose Arterial Blood Ionized Calcium Urine Creatinine Random Vancomycin Coronavirus (PCR) Crossmatch 03/23/21 03/23/21 03/23/21 04:30 04:30 05:37 WBC 20.1 H RBC 3.17 L Hgb 8.6 L Hct 27.2 L MCH 27 L RDW 17.4 H Plt Count 118 L Lymph % (Auto) [place] # (Auto) Eos # (Auto) Seg Neutrophils % Seg Neutrophils # PT INR D-Dimer ABG pH POC ABG pCO2 POC ABG pO2 ABG pO2 ABG HCO3 ABG O2 Saturation ABG Base Excess ABG Hemoglobin ABG Oxyhemoglobin ABG Sodium ABG Potassium ABG Chloride ABG Glucose Oxyhemoglobin Carboxyhemoglobin Sodium Potassium 5.2 H Chloride 97.1 L Carbon Dioxide 21 L BUN 82 H Creatinine 9.1 H Glucose 109 H POC Glucose 130 H Hemoglobin A1c Calcium Phosphorus 10.80 H Magnesium 3.50 H Lactate Dehydrogenase C-Reactive Protein Total Protein Albumin Triglycerides Arterial Blood Glucose Arterial Blood Ionized Calcium Urine Creatinine Random Vancomycin Coronavirus (PCR) Crossmatch 03/23/21 03/23/21 03/23/21 08:44 11:30 16:09 WBC RBC Hgb Hct MCH RDW Plt Count Lymph % (Auto) [place] # (Auto) Eos # (Auto) Seg Neutrophils % Seg Neutrophils # PT INR D-Dimer ABG pH 7.190 L POC ABG pCO2 57.9 H POC ABG pO2 79.2 L ABG pO2 ABG HCO3 ABG O2 Saturation ABG Base Excess ABG Hemoglobin 11.8 L ABG Oxyhemoglobin 92.3 L ABG Sodium 131.0 L ABG Potassium 5.0 H ABG Chloride ABG Glucose 122 H Oxyhemoglobin Carboxyhemoglobin 0.4 L Sodium Potassium Chloride Carbon Dioxide BUN Creatinine Glucose POC Glucose 129 H 148 H Hemoglobin A1c Calcium Phosphorus Magnesium Lactate Dehydrogenase C-Reactive Protein Total Protein Albumin Triglycerides Arterial Blood Glucose 122 H Arterial Blood Ionized Calcium 4.4 L Urine Creatinine Random Vancomycin Coronavirus (PCR) Crossmatch 03/23/21 03/24/21 03/24/21 21:00 03:35 04:00 WBC 17.8 H RBC 2.96 L Hgb 8.1 L Hct 25.0 L MCH 27 L RDW 17.7 H Plt Count 124 L Lymph % (Auto) [place] # (Auto) Eos # (Auto) Seg Neutrophils % Seg Neutrophils # PT INR D-Dimer ABG pH 7.223 L POC ABG pCO2 50.3 H POC ABG pO2 114.4 H ABG pO2 ABG HCO3 ABG O2 Saturation ABG Base Excess ABG Hemoglobin 8.8 L ABG Oxyhemoglobin ABG Sodium 130.4 L ABG Potassium 5.1 H ABG Chloride ABG Glucose 126 H Oxyhemoglobin Carboxyhemoglobin 0.2 L Sodium Potassium Chloride Carbon Dioxide BUN Creatinine Glucose POC Glucose 148 H Hemoglobin A1c Calcium Phosphorus Magnesium Lactate Dehydrogenase C-Reactive Protein Total Protein Albumin Triglycerides Arterial Blood Glucose 126 H Arterial Blood Ionized Calcium 4.4 L Urine Creatinine Random Vancomycin Coronavirus (PCR) Crossmatch 03/24/21 03/24/21 03/24/21 04:00 06:49 12:29 WBC RBC Hgb Hct MCH RDW Plt Count Lymph % (Auto) [place] # (Auto) Eos # (Auto) Seg Neutrophils % Seg Neutrophils # PT INR D-Dimer ABG pH POC ABG pCO2 POC ABG pO2 ABG pO2 ABG HCO3 ABG O2 Saturation ABG Base Excess ABG Hemoglobin ABG Oxyhemoglobin ABG Sodium ABG Potassium ABG Chloride ABG Glucose Oxyhemoglobin Carboxyhemoglobin Sodium Potassium Chloride 95.6 L Carbon Dioxide 20 L BUN 108 H Creatinine 10.8 H Glucose 155 H POC Glucose 136 H 142 H Hemoglobin A1c Calcium Phosphorus Magnesium Lactate Dehydrogenase C-Reactive Protein Total Protein Albumin Triglycerides Arterial Blood Glucose Arterial Blood Ionized Calcium Urine Creatinine Random Vancomycin Coronavirus (PCR) Crossmatch 03/24/21 03/25/21 03/25/21 21:35 00:15 05:51 WBC RBC Hgb Hct MCH RDW Plt Count Lymph % (Auto) [place] # (Auto) Eos # (Auto) Seg Neutrophils % Seg Neutrophils # PT INR D-Dimer ABG pH 7.241 L POC ABG pCO2 POC ABG pO2 ABG pO2 72.4 L ABG HCO3 ABG O2 Saturation 90.3 L ABG Base Excess ABG Hemoglobin 7.9 L ABG Oxyhemoglobin ABG Sodium ABG Potassium ABG Chloride ABG Glucose Oxyhemoglobin 88.4 L Carboxyhemoglobin Sodium Potassium Chloride Carbon Dioxide BUN Creatinine Glucose POC Glucose 110 H 121 H Hemoglobin A1c Calcium Phosphorus Magnesium Lactate Dehydrogenase C-Reactive Protein Total Protein Albumin Triglycerides Arterial Blood Glucose Arterial Blood Ionized Calcium Urine Creatinine Random Vancomycin Coronavirus (PCR) Crossmatch 03/25/21 03/25/21 03/25/21 05:54 05:54 12:21 WBC 12.4 H RBC 2.52 L Hgb 6.9 L Hct 21.1 L MCH RDW 17.4 H Plt Count 102 L Lymph % (Auto) [place] # (Auto) Eos # (Auto) Seg Neutrophils % Seg Neutrophils # PT INR D-Dimer ABG pH POC ABG pCO2 POC ABG pO2 ABG pO2 ABG HCO3 ABG O2 Saturation ABG Base Excess ABG Hemoglobin ABG Oxyhemoglobin ABG Sodium ABG Potassium ABG Chloride ABG Glucose Oxyhemoglobin Carboxyhemoglobin Sodium Potassium Chloride 96.7 L Carbon Dioxide BUN 81 H Creatinine 8.1 H Glucose 116 H POC Glucose 138 H Hemoglobin A1c Calcium 8.2 L Phosphorus Magnesium Lactate Dehydrogenase C-Reactive Protein Total Protein Albumin Triglycerides Arterial Blood Glucose Arterial Blood Ionized Calcium Urine Creatinine Random Vancomycin Coronavirus (PCR) Crossmatch 03/25/21 03/25/21 03/25/21 13:45 17:32 21:30 WBC RBC Hgb Hct MCH RDW Plt Count Lymph % (Auto) [place] # (Auto) Eos # (Auto) Seg Neutrophils % Seg Neutrophils # PT INR D-Dimer ABG pH POC ABG pCO2 POC ABG pO2 ABG pO2 70.2 L ABG HCO3 ABG O2 Saturation ABG Base Excess ABG Hemoglobin 6.8 L ABG Oxyhemoglobin ABG Sodium ABG Potassium ABG Chloride ABG Glucose Oxyhemoglobin 94.5 L Carboxyhemoglobin Sodium Potassium Chloride Carbon Dioxide BUN Creatinine Glucose POC Glucose 110 H Hemoglobin A1c Calcium Phosphorus Magnesium Lactate Dehydrogenase C-Reactive Protein Total Protein Albumin Triglycerides Arterial Blood Glucose Arterial Blood Ionized Calcium Urine Creatinine Random Vancomycin Coronavirus (PCR) Crossmatch See Detail 03/25/21 03/25/21 03/26/21 23:29 Unknown 05:15 WBC 12.4 H 14.0 H RBC 2.49 L 2.83 L Hgb 6.8 L 7.6 L Hct 20.9 L 23.6 L MCH 27 L 27 L RDW 18.0 H 17.1 H Plt Count 107 L 116 L Lymph % (Auto) [place] # (Auto) Eos # (Auto) Seg Neutrophils % Seg Neutrophils # PT INR D-Dimer ABG pH POC ABG pCO2 POC ABG pO2 ABG pO2 ABG HCO3 ABG O2 Saturation ABG Base Excess ABG Hemoglobin ABG Oxyhemoglobin ABG Sodium ABG Potassium ABG Chloride ABG Glucose Oxyhemoglobin Carboxyhemoglobin Sodium Potassium Chloride Carbon Dioxide BUN Creatinine Glucose POC Glucose 113 H Hemoglobin A1c Calcium Phosphorus Magnesium Lactate Dehydrogenase C-Reactive Protein Total Protein Albumin Triglycerides Arterial Blood Glucose Arterial Blood Ionized Calcium Urine Creatinine Random Vancomycin Coronavirus (PCR) Crossmatch 03/26/21 03/26/21 03/26/21 05:15 05:35 09:50 WBC RBC Hgb Hct MCH RDW Plt Count Lymph % (Auto) [place] # (Auto) Eos # (Auto) Seg Neutrophils % Seg Neutrophils # PT INR D-Dimer ABG pH POC ABG pCO2 POC ABG pO2 ABG pO2 79.9 L ABG HCO3 ABG O2 Saturation ABG Base Excess ABG Hemoglobin 7.1 L ABG Oxyhemoglobin ABG Sodium ABG Potassium ABG Chloride ABG Glucose Oxyhemoglobin 94.9 L Carboxyhemoglobin Sodium Potassium 3.4 L Chloride Carbon Dioxide BUN 70 H Creatinine 7.3 H Glucose 142 H POC Glucose 130 H Hemoglobin A1c Calcium 8.2 L Phosphorus Magnesium Lactate Dehydrogenase C-Reactive Protein Total Protein Albumin Triglycerides 254 H Arterial Blood Glucose Arterial Blood Ionized Calcium Urine Creatinine Random Vancomycin Coronavirus (PCR) Crossmatch 03/26/21 03/26/21 03/26/21 11:45 16:36 23:33 WBC RBC Hgb Hct MCH RDW Plt Count Lymph % (Auto) [place] # (Auto) Eos # (Auto) Seg Neutrophils % Seg Neutrophils # PT INR D-Dimer ABG pH POC ABG pCO2 POC ABG pO2 ABG pO2 ABG HCO3 ABG O2 Saturation ABG Base Excess ABG Hemoglobin ABG Oxyhemoglobin ABG Sodium ABG Potassium ABG Chloride ABG Glucose Oxyhemoglobin Carboxyhemoglobin Sodium Potassium Chloride Carbon Dioxide BUN Creatinine Glucose POC Glucose 123 H 121 H 120 H Hemoglobin A1c Calcium Phosphorus Magnesium Lactate Dehydrogenase C-Reactive Protein Total Protein Albumin Triglycerides Arterial Blood Glucose Arterial Blood Ionized Calcium Urine Creatinine Random Vancomycin Coronavirus (PCR) Crossmatch 03/27/21 03/27/21 03/27/21 03:20 04:14 08:20 WBC 13.2 H RBC 2.82 L Hgb 7.9 L Hct 23.5 L MCH RDW 17.3 H Plt Count 125 L Lymph % (Auto) [place] # (Auto) Eos # (Auto) Seg Neutrophils % Seg Neutrophils # PT INR D-Dimer ABG pH POC ABG pCO2 50.0 H POC ABG pO2 58.3 L ABG pO2 ABG HCO3 ABG O2 Saturation ABG Base Excess ABG Hemoglobin 11.3 L ABG Oxyhemoglobin 88.5 L ABG Sodium ABG Potassium ABG Chloride ABG Glucose 132 H Oxyhemoglobin Carboxyhemoglobin 0.2 L Sodium Potassium Chloride Carbon Dioxide BUN Creatinine Glucose POC Glucose 119 H Hemoglobin A1c Calcium Phosphorus Magnesium Lactate Dehydrogenase C-Reactive Protein Total Protein Albumin Triglycerides Arterial Blood Glucose 132 H Arterial Blood Ionized Calcium Urine Creatinine Random Vancomycin Coronavirus (PCR) Crossmatch 03/27/21 03/27/21 03/27/21 08:20 11:39 17:32 WBC RBC Hgb Hct MCH RDW Plt Count Lymph % (Auto) [place] # (Auto) Eos # (Auto) Seg Neutrophils % Seg Neutrophils # PT INR D-Dimer ABG pH POC ABG pCO2 POC ABG pO2 ABG pO2 ABG HCO3 ABG O2 Saturation ABG Base Excess ABG Hemoglobin ABG Oxyhemoglobin ABG Sodium ABG Potassium ABG Chloride ABG Glucose Oxyhemoglobin Carboxyhemoglobin Sodium Potassium Chloride Carbon Dioxide BUN 57 H Creatinine 6.8 H Glucose 131 H POC Glucose 121 H 126 H Hemoglobin A1c Calcium Phosphorus Magnesium Lactate Dehydrogenase C-Reactive Protein Total Protein Albumin Triglycerides Arterial Blood Glucose Arterial Blood Ionized Calcium Urine Creatinine Random Vancomycin Coronavirus (PCR) Crossmatch 03/28/21 03/28/21 03/28/21 00:10 04:45 05:25 WBC RBC Hgb Hct MCH RDW Plt Count Lymph % (Auto) [place] # (Auto) Eos # (Auto) Seg Neutrophils % Seg Neutrophils # PT INR D-Dimer ABG pH POC ABG pCO2 POC ABG pO2 ABG pO2 57.6 L ABG HCO3 27.1 H ABG O2 Saturation 88.5 L ABG Base Excess ABG Hemoglobin ABG Oxyhemoglobin ABG Sodium ABG Potassium ABG Chloride ABG Glucose Oxyhemoglobin 86.6 L Carboxyhemoglobin Sodium Potassium Chloride Carbon Dioxide BUN Creatinine Glucose POC Glucose 113 H 121 H Hemoglobin A1c Calcium Phosphorus Magnesium Lactate Dehydrogenase C-Reactive Protein Total Protein Albumin Triglycerides Arterial Blood Glucose Arterial Blood Ionized Calcium Urine Creatinine Random Vancomycin Coronavirus (PCR) Crossmatch 03/28/21 03/28/21 03/28/21 09:37 09:37 11:48 WBC 16.3 H RBC 2.92 L Hgb 8.2 L Hct 24.8 L MCH RDW 17.5 H Plt Count Lymph % (Auto) 10.7 L [place] # (Auto) 0.9 H Eos # (Auto) 0.6 H Seg Neutrophils % 80.0 H Seg Neutrophils # 13.0 H PT INR D-Dimer ABG pH POC ABG pCO2 POC ABG pO2 ABG pO2 ABG HCO3 ABG O2 Saturation ABG Base Excess ABG Hemoglobin ABG Oxyhemoglobin ABG Sodium ABG Potassium ABG Chloride ABG Glucose Oxyhemoglobin Carboxyhemoglobin Sodium Potassium Chloride Carbon Dioxide BUN 61 H Creatinine 7.7 H Glucose 148 H POC Glucose 123 H Hemoglobin A1c Calcium Phosphorus Magnesium Lactate Dehydrogenase C-Reactive Protein Total Protein Albumin Triglycerides Arterial Blood Glucose Arterial Blood Ionized Calcium Urine Creatinine Random Vancomycin Coronavirus (PCR) Crossmatch 03/28/21 03/28/21 03/28/21 17:33 21:08 23:38 WBC RBC Hgb Hct MCH RDW Plt Count Lymph % (Auto) [place] # (Auto) Eos # (Auto) Seg Neutrophils % Seg Neutrophils # PT INR D-Dimer ABG pH POC ABG pCO2 POC ABG pO2 80.5 L ABG pO2 ABG HCO3 ABG O2 Saturation ABG Base Excess ABG Hemoglobin 9.5 L ABG Oxyhemoglobin ABG Sodium 133.3 L ABG Potassium ABG Chloride ABG Glucose 134 H Oxyhemoglobin Carboxyhemoglobin 0.3 L Sodium Potassium Chloride Carbon Dioxide BUN Creatinine Glucose POC Glucose 128 H 112 H Hemoglobin A1c Calcium Phosphorus Magnesium Lactate Dehydrogenase C-Reactive Protein Total Protein Albumin Triglycerides Arterial Blood Glucose 134 H Arterial Blood Ionized Calcium Urine Creatinine Random Vancomycin Coronavirus (PCR) Crossmatch 03/29/21 03/29/21 03/29/21 04:45 04:45 04:45 WBC 17.5 H RBC 3.15 L Hgb 8.8 L Hct 27.2 L MCH RDW 17.9 H Plt Count 132 L Lymph % (Auto) [place] # (Auto) Eos # (Auto) Seg Neutrophils % Seg Neutrophils # PT INR D-Dimer ABG pH POC ABG pCO2 POC ABG pO2 ABG pO2 ABG HCO3 ABG O2 Saturation ABG Base Excess ABG Hemoglobin ABG Oxyhemoglobin ABG Sodium ABG Potassium ABG Chloride ABG Glucose Oxyhemoglobin Carboxyhemoglobin Sodium Potassium Chloride 97.7 L Carbon Dioxide 21 L BUN 78 H Creatinine 9.5 H Glucose 132 H POC Glucose Hemoglobin A1c Calcium Phosphorus Magnesium Lactate Dehydrogenase C-Reactive Protein Total Protein Albumin 2.2 L Triglycerides 385 H Arterial Blood Glucose Arterial Blood Ionized Calcium Urine Creatinine Random Vancomycin Coronavirus (PCR) Crossmatch 03/29/21 03/29/21 03/29/21 11:35 16:50 21:06 WBC RBC Hgb Hct MCH RDW Plt Count Lymph % (Auto) [place] # (Auto) Eos # (Auto) Seg Neutrophils % Seg Neutrophils # PT INR D-Dimer ABG pH POC ABG pCO2 POC ABG pO2 ABG pO2 64.9 L ABG HCO3 ABG O2 Saturation ABG Base Excess -5.2 L ABG Hemoglobin ABG Oxyhemoglobin ABG Sodium ABG Potassium ABG Chloride ABG Glucose Oxyhemoglobin 85.1 L Carboxyhemoglobin Sodium Potassium Chloride Carbon Dioxide BUN Creatinine Glucose POC Glucose 148 H 133 H Hemoglobin A1c Calcium Phosphorus Magnesium Lactate Dehydrogenase C-Reactive Protein Total Protein Albumin Triglycerides Arterial Blood Glucose Arterial Blood Ionized Calcium Urine Creatinine Random Vancomycin Coronavirus (PCR) Crossmatch 03/29/21 03/30/21 03/30/21 Unknown 00:13 04:00 WBC 15.7 H RBC 3.18 L Hgb 8.6 L Hct 27.3 L MCH 27 L RDW 18.0 H Plt Count 86 L Lymph % (Auto) [place] # (Auto) Eos # (Auto) Seg Neutrophils % Seg Neutrophils # PT INR D-Dimer ABG pH 7.258 L POC ABG pCO2 POC ABG pO2 ABG pO2 ABG HCO3 ABG O2 Saturation ABG Base Excess -4.9 L ABG Hemoglobin 8.8 L ABG Oxyhemoglobin ABG Sodium ABG Potassium ABG Chloride ABG Glucose Oxyhemoglobin 93.9 L Carboxyhemoglobin Sodium Potassium Chloride Carbon Dioxide BUN Creatinine Glucose POC Glucose 129 H Hemoglobin A1c Calcium Phosphorus Magnesium Lactate Dehydrogenase C-Reactive Protein Total Protein Albumin Triglycerides Arterial Blood Glucose Arterial Blood Ionized Calcium Urine Creatinine Random Vancomycin Coronavirus (PCR) Crossmatch 03/30/21 03/30/21 03/30/21 04:00 04:00 06:02 WBC RBC Hgb Hct MCH RDW Plt Count Lymph % (Auto) [place] # (Auto) Eos # (Auto) Seg Neutrophils % Seg Neutrophils # PT INR D-Dimer 2607.12 H ABG pH POC ABG pCO2 POC ABG pO2 ABG pO2 ABG HCO3 ABG O2 Saturation ABG Base Excess ABG Hemoglobin ABG Oxyhemoglobin ABG Sodium ABG Potassium ABG Chloride ABG Glucose Oxyhemoglobin Carboxyhemoglobin Sodium 133 L Potassium 5.2 H D Chloride 91.5 L Carbon Dioxide 18 L BUN 101 H Creatinine 10.6 H Glucose 149 H POC Glucose 130 H Hemoglobin A1c Calcium Phosphorus 10.30 H Magnesium Lactate Dehydrogenase C-Reactive Protein 21.50 H Total Protein Albumin Triglycerides Arterial Blood Glucose Arterial Blood Ionized Calcium Urine Creatinine Random Vancomycin Coronavirus (PCR) Crossmatch 03/30/21 03/30/21 10:36 11:48 WBC RBC Hgb Hct MCH RDW Plt Count Lymph % (Auto) [place] # (Auto) Eos # (Auto) Seg Neutrophils % Seg Neutrophils # PT INR D-Dimer ABG pH 7.224 L POC ABG pCO2 49.1 H POC ABG pO2 61.5 L ABG pO2 ABG HCO3 ABG O2 Saturation ABG Base Excess ABG Hemoglobin 10.2 L ABG Oxyhemoglobin 86.2 L ABG Sodium 129.6 L ABG Potassium 5.4 H ABG Chloride 96.0 L ABG Glucose 161 H Oxyhemoglobin Carboxyhemoglobin Sodium Potassium Chloride Carbon Dioxide BUN Creatinine Glucose POC Glucose 163 H Hemoglobin A1c Calcium Phosphorus Magnesium Lactate Dehydrogenase C-Reactive Protein Total Protein Albumin Triglycerides Arterial Blood Glucose 161 H Arterial Blood Ionized Calcium 4.4 L Urine Creatinine Random Vancomycin Coronavirus (PCR) Crossmatch Chest x-ray: image reviewed (developing reticular / increased interstitial markings in a fibrotic pattern) Allied health notes reviewed: nursing
--- NOTE | 2021-03-30 14:11 | Progress Note ---
Assessment and Plan Assessment and plan: This is a 31-year-old female with asthma, morbid obesity and Crohn's disease admitted for COVID-19 pneumonia and and acute renal failure Neuro: Sedated -Intubated and sedated on propofol and fentanyl -changed to versed -RASS goal 0 to -1 -Daily SAT/SBT when appropriate -Maintain sleep-wake cycle -Avoid delirium -Bilateral wrist restraints in place for safety CV: Tachycardia, s/p hypertension now with hypotension -ST on the monitor -Vasopressor support with levophed -adding vaso if needed -Maintain MAP above 65 -Blood pressure monitoring per protocol -will attempt keesha again Respiratory: Acute hypoxic respiratory failure, asthma exacerbation, COVID-19 pneumonia, ARDS, RUL PNA, bronchospasm (resolved) -DuoNeb, steroids -Patient was intubated on 03/14 for respiratory distress and inability to protect airway -Intubated with 7.50 ETT at 24 at the lip -A.m. vent settings: AC R 20, TV 450, Peep 20, Fio2 50% -See RT notes for titration -ABGs per CCM -CXR noted -VAP bundle -SPO2 monitoring -CCM/pulmonary consulted, appreciate recommendations -S/p BiPAP therapy GI: h/o MO and Crohn's disease -Nutrition consulted, appreciate recommendations -Tube feeding: Nepro -Free water 100 mL every 4 hours -BR: [place] -PPI -24 hours +[id number] -BMS in place : Acute kidney injury likely secondary to ATN, hyperphosphatemia -Nephrology consulted, appreciate recommendations -Vas-Cath placed 03/15 -HD initiated 03/15 -Daily weights -Strict intake and output -Avoid nephrotoxic medications -Renally dose medications -Trend BMP -Intervene for electrolytes as needed -Daily HD for now per nephrology ID: COVID-19 pneumonia, leukocytosis, Staph aureus in tracheal aspirate, Conjunctival hemorrhage, periorbital edema -Infectious disease consulted, appreciate recommendations -COVID-19 PCR positive -IV steroid -Ordered Actemra per ID -Per ID patient is on a candidate for remdesivir due to renal failure -Patient received 1 dose of remdesivir on 03/14 -Prophylactic anticoagulation based on D-dimer -Cipro/Dex drops for 5 days -completed -Abx per ID: [email or web address] started 03/27 -Trend COVID-19 inflammatory markers -Isolation/droplet precautions -Vitamin C/vitamin D/zinc -03/13 BC x2 no growth to date -03/14 tracheal aspirate with Staph aureus (ID aware) -Monitor WBC and fever curve Heme: Leukocytosis, elevated D-dimer, thrombocytopenia -Trend CBC -Transfuse hemoglobin less than 7 -Eliquis restarted 03/29 -SCDs to bilateral lower extremity while in bed -BLE duplex US shows no DVT Endo: Possible some degree of insulin resistance -Hemoglobin A1c 6.3 -SSI -Accu-Cheks every 6 -Avoid hypoglycemia -Target blood glucose while critically ill 140-180 The high probability of a clinically significant, sudden or life threatening deterioration of the [multiple] system(s) required my full and direct attention, intervention and personal management. The aggregate critical care time was [60] minutes. This time is in addition to time spent performing reported procedures but includes the following: [x] Data Review and interpretation [x] Patient assessment and monitoring of vital signs [x] Documentation [x] Medication orders and management Disposition Plan: icu Total Time Spent with Patient (Minutes): 60 History Interval history: This is a 31-year-old female with asthma, history of prior intubation x1 in 02/2019, morbid obesity and Crohn's disease who presented to the emergency d epartment on 03/13 with complaints of severe wheezing and shortness of breath over the past 4 days which is not relieved by home nebulizer treatments or rescue inhalers, cough without fever and no loss of sense of taste or smell. Patient is currently on vaccinated for COVID-19. In the emergency department patient was placed on BiPAP given steroids magnesium Solu-Medrol with improvement, CXR shows a streak of possible pneumonia. Patient was made a COVID-19 PUI and admitted to the hospital service. Patient was initially admitted to [facility] on BiPAP and was subsequently intubated due to severe r espiratory distress and inability to protect her airway. Patient was admitted with acute hypoxic respiratory failure, acute asthma exacerbation, right upper lobe pneumonia, and as a COVID-19 PUI. Hospital Course to Date: 03/14/21- Patient is s/p intubation from this morning, sedated on propofol and fentanyl RASS -3 to -4. ETT above the clavicles advanced by 2cc. Continue nebs and IV steroids per [facility]. COVID swab pending. Hyperkalemia improved, X1 dose of kayaxalate ordered. Low BP and low urine output this am, fluid bolus challenge, 500cc of NS bolus given. Continue to monitor electrolytes and renal function, repeat BMP this afternoon. 03/15: Patient's renal function noted to be significantly worse today, patient was hyperkalemic and this was medically treated. Patient initiated on hemod ialysis today. infectious disease was consulted today. 03/16: No acute events reported overnight, patient received hemodialysis yesterday. Patient is currently on propofol and fentanyl. 03/17: Patient received hemodialysis today, patient is slightly acidotic on ABG however [facility] is allowing for permissive hypercapnia, tracheal aspirate with Staph aureus and ID is aware. 03/18: Patient is having high residuals today and Reglan was started, patient will receive HD daily per nephrology, correct her change in FiO2 as tolerated. 03/19: HD per nephrology today, antibiotics changed to cefazolin. Patient did not tolerate tube feedings as she had high residuals this morning and they were turned off. Not restarted yet. Updated family at bedside today 03/20: HD today, ddimer noted to be >1000, Tolerating trickle TF. Stat BLE dopplar US 03/21: Patient is not tolerating TF, CXR shows worsening infiltrates, [facility] made changes to vent, TF on hold and started on IVF. 03/22/21- Patient remains intubated and on sedation. Persistent vomiting, TF held overnight, no documented BM, on reglan BR added, Shaun citarte & supp. HD today. Plan to restart TF at 10ml/hr, will reevaluate in the am. Persistent thr ombocytopenia, Hep on hold, HIT panel ordered, PO eliquis initiated. 03/23/21- Patient remains on the vent and sedated on propofol and fentanyl RASS - 2 to -3. Possible SAT today as tolerated. Patient tolerated trickle feeds overnight, plan to advance TF by 10cc Q8 to 12hrs. Continue current BR and c ontinue reglan for now. Slightr worsening in acidosis from this am, d/w [facility] vent setting adjusted, will repeat ABG at 9pm. 03/24/21- Patient is on the vent and sedated, on fentanyl and propfol. Bilateral subconjunctival hemorrhage with periorbital edema noted this am, pupils are round and reactive, will Cipro/Dex [id number]. Worsening of kidney function from today's labs, plan for HD per Nephro. 03/25/21- Patient remains intubated and on sedatin, RASS 0 to -1, no longer on pressors. Sudden drop in H&H this am, bilateral subconjunctival hemorrhage with no sig change, no signs of any active bleeding. Patient appears neurologically intact, following commands, pupils are round and reactive with + gag and cough, moved all extremities. D/w [facility] patient is too unstable for CT at this time. Eliq uis D/Devaughn, 1unit of PRBC ordered. Will continue to trend CBC. Plan for another section of HD today 03/26/21- Patient remains on the vent and sedated. VENICE reported from overnight. Plan for HD again today. H&H back up and stable, no AC at this time, SCDs for VTE phro. D/w [facility] patient is still too unstable for CT scan, will continue neuro exam and will continue to monitor H&H. 03/27/21- VENICE overnight. remains on the vent and sedated. Red localized rashes noted in patient upper chest and face, will r/o allergic reaction,CBC with auto diff and urine eosinophils ordered. Plan for HD today per Nephro. 03/28/21- Patient remains on the vent and sedated. Persistent fevers overnight unrelieved with antipyretic, currently on a cooling blanket. Back on pressors for hypotension, patient already on IV abx, last blood cultureX2 and sputum culture from 03/23 were negative. Continue IV abx, will reculture patient, orders placed for B.culture and sputum culture. ID is also on consult. will continue F/u on culture and continue to monitor BMP and CBC. 03/29: Patient restarted on prednisone given splotchy rash, will resume apixaban for VTE prophylaxis and repeat ABG at 9 PM. Remains with leukocytosis, elevated BUN/creatinine, elevated triglycerides and on Levophed 03/30: HD today, rash is still present and started on IV steroids. plt is low today but will continue to monitor. [facility] made changes to vent-> decrease in MV. ABG in the pm and possible punch biopsy tomorrow if rash is not improved. propofol changed to versed Hospitalist Physical - Constitutional Vitals: Temp Pulse Resp BP Pulse Ox 98.6 F 121 H 33 H 206/184 96 03/30/21 04:00 03/30/21 13:00 03/30/21 13:00 03/30/21 13:00 03/30/21 13:00 General appearance: Present: no acute distress, well-nourished, obese, other ( Intubated and sedated) - EENT Eyes: Present: PERRL, EOM intact, conjunctival injection ENT: hearing intact - Neck Neck: Present: supple, normal ROM - Respiratory Respiratory effort: normal Respiratory: bilateral: diminished - Cardiovascular Rhythm: regular Heart Sounds: Present: S1 & S2. Absent: systolic murmur, diastolic murmur - Extremities Extremities: no ischemia, pulses intact, pulses symmetrical, No edema, normal temperature, normal color Extremity abnormal: edema, erythema Peripheral Pulses: within normal limits - Abdominal General gastrointestinal: soft, non-tender, normal bowel sounds - Integumentary Integumentary: Present: warm, dry, erythema, rash - Psychiatric Psychiatric: other (sedated) - Neurologic Neurologic: other (sedated) - Allied Health Allied health notes reviewed: nursing, RT, social work Results - Labs CBC & Chem 7: 03/30/21 04:00 03/30/21 04:00 Labs: Laboratory Last Values WBC 15.7 K/mm3 (4.5-11.0) H 03/30/21 04:00 RBC 3.18 M/mm3 (3.65-5.03) L 03/30/21 04:00 Hgb 8.6 gm/dl (10.1-14.3) L 03/30/21 04:00 Hct 27.3 % (30.3-42.9) L 03/30/21 04:00 MCV 86 fl (79-97) 03/30/21 04:00 MCH 27 pg (28-32) L 03/30/21 04:00 MCHC 32 % (30-34) 03/30/21 04:00 RDW 18.0 % (13.2-15.2) H 03/30/21 04:00 Plt Count 86 K/mm3 (140-440) L 03/30/21 04:00 Lymph % (Auto) 10.7 % (13.4-35.0) L 03/28/21 09:37 [place] % (Auto) 5.2 % (0.0-7.3) 03/28/21 09:37 Eos % (Auto) 3.9 % (0.0-4.3) 03/28/21 09:37 Baso % (Auto) 0.2 % (0.0-1.8) 03/28/21 09:37 Lymph # (Auto) 1.7 K/mm3 (1.2-5.4) 03/28/21 09:37 [place] # (Auto) 0.9 K/mm3 (0.0-0.8) H 03/28/21 09:37 Eos # (Auto) 0.6 K/mm3 (0.0-0.4) H 03/28/21 09:37 Baso # (Auto) 0.0 K/mm3 (0.0-0.1) 03/28/21 09:37 Seg Neutrophils % 80.0 % (40.0-70.0) H 03/28/21 09:37 Seg Neutrophils # 13.0 K/mm3 (1.8-7.7) H 03/28/21 09:37 PT 15.8 Sec. (12.2-14.9) H 03/22/21 13:40 INR 1.14 (0.87-1.13) H 03/22/21 13:40 APTT 26.8 Sec. (24.2-36.6) 03/22/21 13:40 D-Dimer 2607.12 ng/mlDDU (0-234) H 03/30/21 04:00 ABG pH 7.224 (7.320-7.450) L 03/30/21 10:36 POC ABG pCO2 49.1 mmHg (32.0-48.0) H 03/30/21 10:36 ABG pCO2 50.6 mm Hg 03/29/21 Unknown POC ABG pO2 61.5 mmHg (83-108) L 03/30/21 10:36 ABG pO2 84.9 mm Hg (80.0-90.0) 03/29/21 Unknown POC ABG HCO3 19.8 03/30/21 10:36 ABG HCO3 22.1 mmol/L (20.0-26.0) 03/29/21 Unknown ABG O2 Saturation 87.2 (0-100) 03/30/21 10:36 ABG O2 Content 11.7 (0.0-44) 03/29/21 Unknown POC ABG Base Excess -7.6 03/30/21 10:36 ABG Base Excess -4.9 mmol/L (-2.0-3.0) L 03/29/21 Unknown ABG Hemoglobin 10.2 (12.0-17.5) L 03/30/21 10:36 ABG Oxyhemoglobin 86.2 (94-98) L 03/30/21 10:36 ABG Carboxyhemoglobin 1.5 % (0.0-5.0) 03/29/21 Unknown ABG Methemoglobin 0.3 (0.0-1.5) 03/30/21 10:36 ABG Sodium 129.6 mmol/L (136.0-145.0) L 03/30/21 10:36 ABG Potassium 5.4 mmol/L (3.40-4.50) H 03/30/21 10:36 ABG Chloride 96.0 mmol/L (98-107) L 03/30/21 10:36 ABG Glucose 161 mg/dL (65-95) H 03/30/21 10:36 ABG Lactate Cancelled 03/29/21 21:06 Oxyhemoglobin 93.9 % (95.0-99.0) L 03/29/21 Unknown Carboxyhemoglobin 0.8 (0.5-1.5) 03/30/21 10:36 FiO2 21 % 03/29/21 Unknown FiO2 % 50.0 03/30/21 10:36 Sodium 133 mmol/L (137-145) L 03/30/21 04:00 Potassium 5.2 mmol/L (3.6-5.0) H D 03/30/21 04:00 Chloride 91.5 mmol/L (98-107) L 03/30/21 04:00 Carbon Dioxide 18 mmol/L (22-30) L 03/30/21 04:00 Anion Gap 29 mmol/L 03/30/21 04:00 BUN 101 mg/dL (7-17) H 03/30/21 04:00 Creatinine 10.6 mg/dL (0.6-1.2) H 03/30/21 04:00 Estimated GFR 5 ml/min 03/30/21 04:00 BUN/Creatinine Ratio 10 % 03/30/21 04:00 Glucose 149 mg/dL (65-100) H 03/30/21 04:00 POC Glucose 163 mg/dL (70-105) H 03/30/21 11:48 Hemoglobin A1c 6.3 % (4-6) H 03/15/21 05:09 Lactic Acid 2.00 mmol/L (0.7-2.0) 03/14/21 18:47 Calcium 8.4 mg/dL (8.4-10.2) 03/30/21 04:00 Phosphorus 10.30 mg/dL (2.5-4.5) H 03/30/21 04:00 Magnesium 2.10 mg/dL (1.7-2.3) 03/30/21 04:00 Ferritin 151.6 ng/mL (10.0-200.0) 03/18/21 04:30 Total Bilirubin 0.30 mg/dL (0.1-1.2) 03/29/21 04:45 Bilirubin Cancelled 03/29/21 21:06 AST 34 units/L (5-40) 03/29/21 04:45 ALT 8 units/L (7-56) 03/29/21 04:45 Alkaline Phosphatase 83 units/L (35-129) 03/29/21 04:45 Lactate Dehydrogenase 477 units/L (91-180) H 03/18/21 04:30 C-Reactive Protein 21.50 mg/dL (0.00-1.30) H 03/30/21 04:00 Total Protein 6.4 g/dL (6.3-8.2) 03/29/21 04:45 Albumin 2.2 g/dL (3.9-5) L 03/29/21 04:45 Albumin/Globulin Ratio 0.5 % 03/29/21 04:45 Triglycerides 385 mg/dL (2-149) H 03/29/21 04:45 Procalcitonin < 0.05 ng/mL (<0.15) 03/13/21 15:40 HCG, Qual Negative (Negative) 03/13/21 13:26 Arterial Blood Glucose 161 mg/dL (65-95) H 03/30/21 10:36 Arterial Blood Ionized Calcium 4.4 mg/dL (4.6-5.3) L 03/30/21 10:36 Urine Creatinine 40.1 mg/dL (0.1-20.0) H 03/14/21 17:50 Urine Sodium 124 mmol/L 03/14/21 17:50 Random Vancomycin 11.2 ug/mL (0-40.0) 03/20/21 04:23 Coronavirus (PCR) Positive (Negative) A 03/14/21 Unknown Hepatitis A IgM Ab Non-reactive (NonReactive) 03/15/21 05:09 Hep Bs Antigen Nonreactive (Negative) 03/15/21 05:09 Hep B Core IgM Ab Non-reactive (NonReactive) 03/15/21 05:09 Hepatitis C Antibody Non-reactive (NonReactive) 03/15/21 05:09 Blood Type O POSITIVE 03/25/21 13:45 Antibody Screen Negative 03/25/21 13:45 Crossmatch See Detail 03/25/21 13:45 Microbiology: Microbiology 03/29/21 23:26 Peripheral/Venous Blood Culture - Preliminary Culture in Progress 03/29/21 23:30 Peripheral/Venous Blood Culture - Preliminary Culture in Progress [place]/IV: Voiding Method Incontinent Active Medications - Current Medications Current Medications: Generic Name Dose Route Start Last Admin Trade Name Freq PRN Reason Stop Dose Admin Acetaminophen 650 mg 03/29/21 15:02 Acetaminophen 325 Mg/10.15 Ml Oral Liqd Unit Dose FEEDTUBE Q6H PRN Pain, Mild (1-3) Albuterol 2.5 mg 03/19/21 00:53 Albuterol 2.5 Mg/3 Ml Nebu IH Q4HRT PRN Shortness Of Breath Albuterol/Ipratropium 1 ampul 03/19/21 08:00 03/30/21 09:20 Ipratropium/Albuterol Sulfate 3 Ml Ampul.Neb IH 1 ampul Q6HRT INESSA Administration Lipase/Protease/Amylase 1 each 03/15/21 11:42 Lipase 10,500/Protease 25,000/Amylase 43,750 (Units) Dr White FEEDTUBE PRN PRN For Clogged Feeding Tube Apixaban 2.5 mg 03/29/21 13:00 03/30/21 09:41 Apixaban 2.5 Mg Tab PO 2.5 mg Q12HR INESSA Administration Protocol Ascorbic Acid 500 mg 03/14/21 22:00 03/30/21 09:41 Ascorbic Acid 500 Mg Tab PO 500 mg BID INESSA Administration Dextrose 50 ml 03/14/21 11:02 03/15/21 11:40 Dextrose 50% In Water (25gm) 50 Ml Syringe IV 50 ml Q30MIN PRN Administration Hypoglycemia Protocol Diphenhydramine HCl 25 mg 03/28/21 18:00 03/30/21 12:06 Diphenhydramine 50 Mg/Ml Vial IV 03/31/21 17:59 25 mg Q6H INESSA Administration Famotidine 10 mg 03/17/21 22:00 03/30/21 09:41 Famotidine 10 Mg Tab PO 10 mg BID INESSA Administration Fentanyl 50 mcg 03/15/21 10:43 03/28/21 09:25 Fentanyl 100 Mcg/2 Ml Inj IV 50 mcg Q10MIN PRN Administration ANALGESIA Hydrophilic Ointment 1 applic 03/14/21 17:50 Lip Therapy Vaseline TP Q2HR PRN Dry Lips Propofol 1,000 mg in 100 mls @ 4.123 mls/hr 03/15/21 11:00 03/30/21 13:30 Diprivan 10 Mg/Ml IV 25 mcg/kg/min TITR INESSA 20.616 mls/hr Administration Protocol 5 MCG/KG/MIN Fentanyl Citrate 2,000 mcg in 100 mls @ 6.872 mls/hr 03/15/21 11:00 03/30/21 11:53 Fentanyl Drip Premix IV 4 mcg/kg/hr TITR INESSA 27.488 mls/hr Administration Protocol 1 MCG/KG/HR Sodium Chloride 500 mls @ 1 mls/hr 03/16/21 17:19 Nacl 0.9% 500 Ml IV DIRECT PRN ARTERIAL LINE FLUSH Vasopressin 20 unit/ Sodium 101 mls @ 9.09 mls/hr 03/21/21 16:00 03/24/21 08:10 Chloride IV 0 units/min TITR INESSA 0 mls/hr Titration Protocol 0.03 UNITS/MIN NORepinephrine/NS 8 MG-250 ML 8 mg in 250 mls @ 3.75 mls/hr 03/23/21 11:00 03/30/21 11:55 Norepinephrine/Ns 8 Mg-250 Ml (Double Conc) IV 7 mcg/min TITRATE INESSA 13.125 mls/hr Administration Protocol 2 MCG/MIN Cefepime HCl 2 gm in 100 mls @ 200 mls/hr 03/27/21 16:00 03/29/21 16:56 Cefepime/Ns 2 Gm/100 Ml IV 200 mls/hr Q24H INESSA Administration Protocol Sodium Chloride 100 mls @ 999 mls/hr 03/30/21 09:21 Nacl 0.9% IV KARLOS PRN Hypotension Insulin Human Lispro 0 unit 03/14/21 12:00 03/30/21 11:56 Insulin Lispro 100 Unit/Ml SUB-Q 2 unit Q6HR INESSA Administration Protocol Lorazepam 1 mg 03/13/21 19:40 03/18/21 14:11 Lorazepam 2 Mg/Ml Vial IV 1 mg Q4H PRN Administration Anxiety Methylprednisolone Sodium Succinate 40 mg 03/30/21 10:00 03/30/21 09:41 Methylprednisolone Sod Succinate 40 Mg/1 Ml Inj IV 40 mg Q24HR INESSA Administration Multi-Ingred Cream/Lotion/Oil/Oint 1 applic 03/14/21 17:50 03/30/21 09:43 Mineral Oil/Petrolatum, White Ophth Oint 3.5 Gm OU 1 applic Q4HR PRN Administration Dry Eye(s) Ondansetron HCl 4 mg 03/13/21 19:30 03/21/21 12:05 Ondansetron 4 Mg/2 Ml Inj IV 4 mg Q8H PRN Administration Nausea And Vomiting Senna/Docusate Sodium 1 tab 03/14/21 22:00 03/30/21 09:41 Sennosides/Docusate Sodium 8.6/50 Mg Tab FEEDTUBE 1 tab BID INESSA Administration Simple Syrup 15 ml 03/15/21 11:42 Simple Syrup 15 Ml FEEDTUBE PRN PRN Hypoglycemia Simple Syrup 30 ml 03/15/21 11:42 Simple Syrup 15 Ml FEEDTUBE PRN PRN Hypoglycemia Sodium Bicarbonate 325 mg 03/15/21 11:42 03/21/21 17:21 Sodium Bicarbonate 325 Mg Tab FEEDTUBE 325 mg PRN PRN Administration For Clogged Feeding Tube Sodium Chloride 10 ml 03/13/21 22:00 03/30/21 09:41 Sodium Chloride 0.9% 10 Ml Flush Syringe IV 10 ml BID INESSA Administration Sodium Chloride 10 ml 03/13/21 19:30 Sodium Chloride 0.9% 10 Ml Flush Syringe IV PRN PRN LINE FLUSH Zinc Sulfate 220 mg 03/14/21 22:00 03/30/21 09:41 Zinc Sulfate 220 Mg Cap PO 220 mg BID INESSA Administration Nutrition/Malnutrition Assess - Dietary Evaluation Nutrition/Malnutrition Findings: Nutrition Notes Start: 03/15/21 11:06 Freq: Status: Active Protocol: Document 03/27/21 10:27 [facility] (Rec: 03/27/21 10:33 [facility] [id number]) Nutrition Notes Initial or Follow up Brief Note Subjective/Other Information Spoke with pt's RN via phone at 10:27. Pt tolerating TF at goal rate. Rectal tube remains in place. Percent of energy/protein needs met: 99% energy 73% pro Nutrition Intervention Follow-Up By: 04/02/21 Additional Comments F/U: stable TF, vent status, rectal tube, propofol, wt
[2021-03-30] MEDS: MIDAZOLAM 2 MG/2 ML INJ IV PRN (14:30)
[2021-03-30] MEDS: MIDAZOLAM 100 MG in SODIUM CHLORIDE 0.9% 80 ML IV SCH (15:05)
[2021-03-30] MEDS: CEFEPIME/NS 2 GM/100 ML 2 GM/100 ML BAG IV SCH (15:12)
--- NOTE | 2021-03-30 18:43 | Procedure Note ---
Date of procedure: 03/30/21 Pre-op diagnosis: covid pna, sepsis Post-op diagnosis: same Procedure: Arsh test completed. Ulnar pulse intact. Left arterial line inserted using sterile technique. Area prepped with chlorhexidine and the site was infiltrated with 1ml 1% lidocaine. Arterial line was placed using ultrasound; catheter advanced without difficulty. Line was sutured, biopatch placed and tegaderm dressing applied. Arm board placed. Arterial waveform observed on bedside monitor. Line flushed and zeroed. RN at bedside. Pt tolerated procedure well. VS remained stable throughout procedure. CCT: 60 min (time spent placing line not included in daily critical care time) Surgeon: CRISTY PASCUAL Estimated blood loss: minimal Condition: critical Disposition: ICU
[2021-03-30] MEDS: LORazepam 2 MG/ML VIAL IV PRN (19:58)
[2021-03-30] MEDS: VASOPRESSIN 20 UNIT in SODIUM CHLORIDE 0.9% 100 ML IV SCH (20:05)
[2021-03-31] MEDS: INSULIN LISPRO 100 UNIT/ML SUB-Q SCH ×4 (00:30→17:47)
[2021-03-31] MEDS: diphenhydrAMINE 50 MG/ML VIAL IV SCH ×3 (00:44→11:26)
[2021-03-31] MEDS: fentaNYL DRIP Premix 2,000 MCG/100 ML BAG IV SCH ×6 (02:00→20:18)
[2021-03-31] MEDS: VASOPRESSIN 20 UNIT in SODIUM CHLORIDE 0.9% 100 ML IV SCH ×2 (02:00→11:51)
[2021-03-31] MEDS: IPRATROPIUM/ALBUTEROL SULFATE 3 ML AMPUL.NEB IH SCH ×4 (02:39→19:56)
[2021-03-31] MEDS ORDERED: SODIUM BICARB 8.4% 50 MEQ/50 ML SYRINGE IV ONE (03:59)
[2021-03-31] MEDS: PHENYLEPHRINE 100 MG in SODIUM CHLORIDE 0.9% 90 ML IV SCH ×2 (04:35→21:54)
[2021-03-31] MEDS: NORepinephrine/NS 8 MG-250 ML 8 MG/250 ML INFUS..BTL IV SCH ×4 (04:37→20:18)
[2021-03-31] MEDS ORDERED: IBUPROFEN ORAL LIQD 100 MG/5 ML ORAL.LIQD PO ONE (05:03)
[2021-03-31 06:37] LABS: Hematocrit 25.3 % (30.3-42.9); Hemoglobin 8.2 gm/dl (10.1-14.3); Mean Corpuscular HGB Conc 32 % (30-34); Mean Corpuscular Volume 84 fl (79-97); Platelet Count 126 K/mm3 (140-440); Red Blood Count 2.99 M/mm3 (3.65-5.03); Red Cell Distribution Width 18.3 % (13.2-15.2)
--- NOTE | 2021-03-31 07:53 | Progress Note ---
Subjective Date of service: 03/31/21 Principal diagnosis: Ac hypoxemic resp failure; AE-Asthma; SAI; Crohn's; COVID- 19; Pneumonia Interval history: #Acute kidney injury: dialysis dependent S/p HD last pm, treatment terminated for hemodynamic instability will follow up lytes Assess daily for needs for additional sessions as hemodynamics Strict input and output Avoid nephrotoxin Renally dose medications Keep MAP > 65 # Hyperkalemia, controlled with HD #Respiratory failure Covid 19 infection currently intubated UF as tolerated with HD, limited by hemodynamic instability #Hyperphosphatemia to be monitored Dialysis has been initiated #Hyponatremia: Improved with HD #Overall prognosis remains guarded Subjective Principal diagnosis: Ac hypoxemic resp failure; AE-Asthma; SAI; Crohn's; COVID- 19; Pneumonia Interval history: Remains intubated. Objective - Exam exam deferred for preservation of PPE Objective - Vital Signs Vital signs: Vital Signs - 12hr 03/30/21 03/30/21 03/30/21 20:00 20:01 20:04 Temperature 100.4 F H Pulse Rate 139 H 136 H 139 H Pulse Rate [ 135 H Anterior Bilateral Throughout] Respiratory 43 H 41 H Rate Respiratory 35 H Rate [Anterior Bilateral Throughout] Blood Pressure 120/50 127/30 127/30 O2 Sat by Pulse 96 98 94 Oximetry O2 Sat by Pulse 98 Oximetry [ Anterior Bilateral Throughout] 03/30/21 03/30/21 03/30/21 20:15 20:31 20:45 Temperature Pulse Rate 135 H 139 H 138 H Pulse Rate [ Anterior Bilateral Throughout] Respiratory 33 H 40 H 31 H Rate Respiratory Rate [Anterior Bilateral Throughout] Blood Pressure 127/30 127/30 127/30 O2 Sat by Pulse 95 93 95 Oximetry O2 Sat by Pulse Oximetry [ Anterior Bilateral Throughout] 03/30/21 03/30/21 03/30/21 21:01 21:15 21:31 Temperature Pulse Rate 138 H 135 H 132 H Pulse Rate [ Anterior Bilateral Throughout] Respiratory 48 H 37 H 33 H Rate Respiratory Rate [Anterior Bilateral Throughout] Blood Pressure 127/30 127/30 127/30 O2 Sat by Pulse 91 95 98 Oximetry O2 Sat by Pulse Oximetry [ Anterior Bilateral Throughout] 03/30/21 03/30/21 03/30/21 21:45 22:01 22:15 Temperature Pulse Rate 131 H 128 H 126 H Pulse Rate [ Anterior Bilateral Throughout] Respiratory 41 H 35 H 21 Rate Respiratory Rate [Anterior Bilateral Throughout] Blood Pressure 127/30 127/30 127/30 O2 Sat by Pulse 96 97 97 Oximetry O2 Sat by Pulse Oximetry [ Anterior Bilateral Throughout] 03/30/21 03/30/21 03/30/21 22:31 22:45 23:01 Temperature Pulse Rate 127 H 127 H 126 H Pulse Rate [ Anterior Bilateral Throughout] Respiratory 41 H 43 H 44 H Rate Respiratory Rate [Anterior Bilateral Throughout] Blood Pressure 127/30 127/30 127/30 O2 Sat by Pulse 93 100 99 Oximetry O2 Sat by Pulse Oximetry [ Anterior Bilateral Throughout] 03/30/21 03/30/21 03/30/21 23:13 23:15 23:30 Temperature Pulse Rate 128 H 127 H 129 H Pulse Rate [ Anterior Bilateral Throughout] Respiratory 44 H 42 H 43 H Rate Respiratory Rate [Anterior Bilateral Throughout] Blood Pressure O2 Sat by Pulse 99 99 99 Oximetry O2 Sat by Pulse Oximetry [ Anterior Bilateral Throughout] 03/30/21 03/30/21 03/31/21 23:35 23:45 00:00 Temperature Pulse Rate 129 H 129 H Pulse Rate [ Anterior Bilateral Throughout] Respiratory 44 H Rate Respiratory Rate [Anterior Bilateral Throughout] Blood Pressure 114/52 O2 Sat by Pulse 98 97 96 Oximetry O2 Sat by Pulse Oximetry [ Anterior Bilateral Throughout] 03/31/21 03/31/21 03/31/21 00:01 00:15 00:31 Temperature Pulse Rate 127 H 125 H 127 H Pulse Rate [ Anterior Bilateral Throughout] Respiratory 39 H 42 H 35 H Rate Respiratory Rate [Anterior Bilateral Throughout] Blood Pressure O2 Sat by Pulse 97 98 99 Oximetry O2 Sat by Pulse Oximetry [ Anterior Bilateral Throughout] 03/31/21 03/31/21 03/31/21 00:45 01:01 01:15 Temperature Pulse Rate 123 H 126 H 125 H Pulse Rate [ Anterior Bilateral Throughout] Respiratory 35 H 42 H 43 H Rate Respiratory Rate [Anterior Bilateral Throughout] Blood Pressure O2 Sat by Pulse 98 97 96 Oximetry O2 Sat by Pulse Oximetry [ Anterior Bilateral Throughout] 03/31/21 03/31/21 03/31/21 01:31 01:35 01:45 Temperature 38.8 F L Pulse Rate 125 H 129 H Pulse Rate [ Anterior Bilateral Throughout] Respiratory 43 H 43 H Rate Respiratory Rate [Anterior Bilateral Throughout] Blood Pressure 127/30 O2 Sat by Pulse 98 97 Oximetry O2 Sat by Pulse Oximetry [ Anterior Bilateral Throughout] 03/31/21 03/31/21 03/31/21 02:01 02:15 02:31 Temperature Pulse Rate 127 H 131 H 131 H Pulse Rate [ Anterior Bilateral Throughout] Respiratory 44 H 41 H 41 H Rate Respiratory Rate [Anterior Bilateral Throughout] Blood Pressure 127/30 127/30 127/30 O2 Sat by Pulse 97 99 99 Oximetry O2 Sat by Pulse Oximetry [ Anterior Bilateral Throughout] 03/31/21 03/31/21 03/31/21 02:40 02:45 03:01 Temperature Pulse Rate 135 H 138 H Pulse Rate [ 132 H 139 H Anterior Bilateral Throughout] Respiratory 37 H 44 H Rate Respiratory 40 H 41 H Rate [Anterior Bilateral Throughout] Blood Pressure 104/52 104/52 O2 Sat by Pulse 95 98 Oximetry O2 Sat by Pulse Oximetry [ Anterior Bilateral Throughout] 03/31/21 03/31/21 03/31/21 03:15 03:31 03:37 Temperature 102.5 F H Pulse Rate 137 H 135 H Pulse Rate [ Anterior Bilateral Throughout] Respiratory 45 H 42 H Rate Respiratory Rate [Anterior Bilateral Throughout] Blood Pressure 104/52 104/52 O2 Sat by Pulse 98 98 Oximetry O2 Sat by Pulse Oximetry [ Anterior Bilateral Throughout] 03/31/21 03/31/21 03/31/21 03:45 04:00 04:01 Temperature Pulse Rate 134 H 133 H Pulse Rate [ Anterior Bilateral Throughout] Respiratory 44 H 44 H Rate Respiratory Rate [Anterior Bilateral Throughout] Blood Pressure 104/52 104/52 O2 Sat by Pulse 98 96 97 Oximetry O2 Sat by Pulse Oximetry [ Anterior Bilateral Throughout] 03/31/21 03/31/21 03/31/21 04:15 04:31 04:42 Temperature 102.7 F H Pulse Rate 131 H 133 H Pulse Rate [ Anterior Bilateral Throughout] Respiratory 36 H 44 H Rate Respiratory Rate [Anterior Bilateral Throughout] Blood Pressure 104/52 104/52 O2 Sat by Pulse 99 97 Oximetry O2 Sat by Pulse Oximetry [ Anterior Bilateral Throughout] 03/31/21 03/31/21 03/31/21 04:45 05:01 05:15 Temperature Pulse Rate 129 H 129 H 128 H Pulse Rate [ Anterior Bilateral Throughout] Respiratory 45 H 41 H 43 H Rate Respiratory Rate [Anterior Bilateral Throughout] Blood Pressure 104/52 104/52 102/51 O2 Sat by Pulse 96 96 98 Oximetry O2 Sat by Pulse Oximetry [ Anterior Bilateral Throughout] 03/31/21 03/31/21 03/31/21 05:30 05:39 05:45 Temperature Pulse Rate 129 H 129 H 127 H Pulse Rate [ Anterior Bilateral Throughout] Respiratory 42 H 31 H Rate Respiratory Rate [Anterior Bilateral Throughout] Blood Pressure 115/52 115/52 115/52 O2 Sat by Pulse 97 98 98 Oximetry O2 Sat by Pulse Oximetry [ Anterior Bilateral Throughout] 03/31/21 03/31/21 03/31/21 06:00 06:15 06:30 Temperature Pulse Rate 124 H 123 H 121 H Pulse Rate [ Anterior Bilateral Throughout] Respiratory 41 H 37 H 37 H Rate Respiratory Rate [Anterior Bilateral Throughout] Blood Pressure 109/49 109/49 112/53 O2 Sat by Pulse 95 99 94 Oximetry O2 Sat by Pulse Oximetry [ Anterior Bilateral Throughout] 03/31/21 03/31/21 03/31/21 06:45 07:00 07:15 Temperature Pulse Rate 121 H 119 H 120 H Pulse Rate [ Anterior Bilateral Throughout] Respiratory 35 H 36 H 34 H Rate Respiratory Rate [Anterior Bilateral Throughout] Blood Pressure 112/53 116/56 116/56 O2 Sat by Pulse 96 97 Oximetry O2 Sat by Pulse Oximetry [ Anterior Bilateral Throughout] 03/31/21 03/31/21 03/31/21 07:30 07:39 07:51 Temperature 101.7 F H Pulse Rate 120 H 121 H Pulse Rate [ Anterior Bilateral Throughout] Respiratory 33 H Rate Respiratory Rate [Anterior Bilateral Throughout] Blood Pressure 117/53 O2 Sat by Pulse 95 Oximetry O2 Sat by Pulse Oximetry [ Anterior Bilateral Throughout] - Lab 03/31/21 05:20 03/30/21 04:00 Most recent lab results ABG pH 7.224 (7.320-7.450) L 03/30/21 10:36 ABG pCO2 50.6 mm Hg 03/29/21 Unknown ABG pO2 84.9 mm Hg (80.0-90.0) 03/29/21 Unknown ABG HCO3 22.1 mmol/L (20.0-26.0) 03/29/21 Unknown ABG O2 Saturation 87.2 (0-100) 03/30/21 10:36 Calcium 8.4 mg/dL (8.4-10.2) 03/30/21 04:00 Phosphorus 8.20 mg/dL (2.5-4.5) H D 03/31/21 05:20 Magnesium 1.90 mg/dL (1.7-2.3) 03/31/21 05:20 Urine Creatinine 40.1 mg/dL (0.1-20.0) H 03/14/21 17:50 Urine Sodium 124 mmol/L 03/14/21 17:50 Medications & Allergies - Medications Allergies/Adverse Reactions: Allergies oxycodone HCl [From Percocet] Allergy (Severe, Verified 03/30/21 14:01) Swelling acetaminophen [From Percocet] Allergy (Verified 03/30/21 13:59) Swelling hydrocodone bitartrate [From Vicodin] Allergy (Verified 03/30/21 13:59) Swelling Home Medications: Home Medications Medication Instructions Recorded Confirmed Last Taken Type Chlorhexidine Mouthwash [Peridex] 15 ml MM BID #1 bottle 10/11/20 03/13/21 Unknown Rx Clindamycin [Clindamycin CAP] 300 mg PO Q8H #21 cap 10/11/20 03/13/21 Unknown Rx Naproxen 500 mg PO Q12H PRN #12 tablet 10/11/20 03/13/21 Unknown Rx Butalb/Acetamin/Caff 50-325-40 1 - 2 tab PO Q6HR PRN #15 tab 12/05/20 03/13/21 Unknown Rx [Fioricet 50-325-40] Famotidine [Pepcid] 20 mg PO BID #30 tablet 12/05/20 03/13/21 Unknown Rx Ketorolac [Toradol] 10 mg PO Q8H PRN #20 tablet 12/05/20 03/13/21 Unknown Rx Ondansetron [Zofran Odt] 4 mg PO Q6HR PRN #20 tab.rapdis 12/05/20 03/13/21 Unknown Rx Albuterol Sulfate [Proair 90 mcg IH Q4HR PRN #2 [email or web address] 01/01/21 03/13/21 Unknown Rx Respiclick] Mupirocin [Bactroban 2% OINT] 1 applic TP BID 7 Days #1 tube 01/01/21 03/13/21 Unknown Rx Triamcinolone Aceton 0.1% (Nf) 1 applic TP BID 14 Days #1 tube 01/01/21 03/13/21 Unknown Rx [Kenalog (NF)] predniSONE [Deltasone] 40 mg PO QDAY #8 tab 01/01/21 03/13/21 Unknown Rx Active Medications: Generic Name Dose Route Start Last Admin Trade Name Freq PRN Reason Stop Dose Admin Acetaminophen 650 mg 03/29/21 15:02 Acetaminophen 325 Mg/10.15 Ml Oral Liqd Unit Dose FEEDTUBE Q6H PRN Pain, Mild (1-3) Albuterol 2.5 mg 03/19/21 00:53 Albuterol 2.5 Mg/3 Ml Nebu IH Q4HRT PRN Shortness Of Breath Albuterol/Ipratropium 1 ampul 03/19/21 08:00 03/31/21 02:39 Ipratropium/Albuterol Sulfate 3 Ml Ampul.Neb IH 1 ampul Q6HRT INESSA Administration Lipase/Protease/Amylase 1 each 03/15/21 11:42 Lipase 10,500/Protease 25,000/Amylase 43,750 (Units) Dr White FEEDTUBE PRN PRN For Clogged Feeding Tube Apixaban 2.5 mg 03/29/21 13:00 03/30/21 21:02 Apixaban 2.5 Mg Tab PO 2.5 mg Q12HR INESSA Administration Protocol Ascorbic Acid 500 mg 03/14/21 22:00 03/30/21 21:03 Ascorbic Acid 500 Mg Tab PO 500 mg BID INESSA Administration Dextrose 50 ml 03/14/21 11:02 03/15/21 11:40 Dextrose 50% In Water (25gm) 50 Ml Syringe IV 50 ml Q30MIN PRN Administration Hypoglycemia Protocol Diphenhydramine HCl 25 mg 03/28/21 18:00 03/31/21 06:13 Diphenhydramine 50 Mg/Ml Vial IV 03/31/21 17:59 25 mg Q6H INESSA Administration Famotidine 10 mg 03/17/21 22:00 03/30/21 21:02 Famotidine 10 Mg Tab PO 10 mg BID INESSA Administration Fentanyl 50 mcg 03/15/21 10:43 03/28/21 09:25 Fentanyl 100 Mcg/2 Ml Inj IV 50 mcg Q10MIN PRN Administration ANALGESIA Hydrophilic Ointment 1 applic 03/14/21 17:50 Lip Therapy Vaseline TP Q2HR PRN Dry Lips Propofol 1,000 mg in 100 mls @ 4.123 mls/hr 03/15/21 11:00 03/31/21 06:15 Diprivan 10 Mg/Ml IV 20 mcg/kg/min TITR INESSA 16.493 mls/hr Titration Protocol 5 MCG/KG/MIN Fentanyl Citrate 2,000 mcg in 100 mls @ 6.872 mls/hr 03/15/21 11:00 03/31/21 05:31 Fentanyl Drip Premix IV 4 mcg/kg/hr TITR INESSA 27.488 mls/hr Administration Protocol 1 MCG/KG/HR Sodium Chloride 500 mls @ 1 mls/hr 03/16/21 17:19 Nacl 0.9% 500 Ml IV DIRECT PRN ARTERIAL LINE FLUSH Vasopressin 20 unit/ Sodium 101 mls @ 9.09 mls/hr 03/21/21 16:00 03/31/21 02:00 Chloride IV 0.03 units/min TITR INESSA 9.09 mls/hr Administration Protocol 0.03 UNITS/MIN NORepinephrine/NS 8 MG-250 ML 8 mg in 250 mls @ 3.75 mls/hr 03/23/21 11:00 03/31/21 04:37 Norepinephrine/Ns 8 Mg-250 Ml (Double Conc) IV 30 mcg/min TITRATE INESSA 56.25 mls/hr Administration Protocol 2 MCG/MIN Cefepime HCl 2 gm in 100 mls @ 200 mls/hr 03/27/21 16:00 03/30/21 19:26 Cefepime/Ns 2 Gm/100 Ml IV Infused Q24H INESSA Infusion Protocol Sodium Chloride 100 mls @ 999 mls/hr 03/30/21 09:21 Nacl 0.9% IV KARLOS PRN Hypotension Midazolam HCl 100 mg/ Sodium 100 mls @ 1 mls/hr 03/30/21 15:00 03/31/21 06:15 Chloride IV 3 mg/hr TITR INESSA 3 mls/hr Titration Protocol 1 MG/HR Vasopressin 20 unit/ Sodium 101 mls @ 9.09 mls/hr 03/30/21 20:00 03/30/21 20:05 Chloride IV 0.03 units/min TITR INESSA 9.09 mls/hr Administration 0.03 UNITS/MIN Phenylephrine HCl 100 mg/ 100 mls @ 3 mls/hr 03/31/21 04:00 03/31/21 07:38 Sodium Chloride IV 120 mcg/min TITR INESSA 7.2 mls/hr Titration Protocol 50 MCG/MIN Insulin Human Lispro 0 unit 03/14/21 12:00 03/31/21 06:20 Insulin Lispro 100 Unit/Ml SUB-Q 2 unit Q6HR INESSA Administration Protocol Lorazepam 1 mg 03/13/21 19:40 03/30/21 19:58 Lorazepam 2 Mg/Ml Vial IV 1 mg Q4H PRN Administration Anxiety Methylprednisolone Sodium Succinate 40 mg 03/30/21 10:00 03/30/21 09:41 Methylprednisolone Sod Succinate 40 Mg/1 Ml Inj IV 40 mg Q24HR INESSA Administration Midazolam HCl 2 mg 03/30/21 14:19 03/30/21 14:30 Midazolam 2 Mg/2 Ml Inj IV 2 mg Q10MIN PRN Administration Sedation Multi-Ingred Cream/Lotion/Oil/Oint 1 applic 03/14/21 17:50 03/30/21 09:43 Mineral Oil/Petrolatum, White Ophth Oint 3.5 Gm OU 1 applic Q4HR PRN Administration Dry Eye(s) Ondansetron HCl 4 mg 03/13/21 19:30 03/21/21 12:05 Ondansetron 4 Mg/2 Ml Inj IV 4 mg Q8H PRN Administration Nausea And Vomiting Senna/Docusate Sodium 1 tab 03/14/21 22:00 03/30/21 21:02 Sennosides/Docusate Sodium 8.6/50 Mg Tab FEEDTUBE 1 tab BID INESSA Administration Simple Syrup 15 ml 03/15/21 11:42 Simple Syrup 15 Ml FEEDTUBE PRN PRN Hypoglycemia Simple Syrup 30 ml 03/15/21 11:42 Simple Syrup 15 Ml FEEDTUBE PRN PRN Hypoglycemia Sodium Bicarbonate 325 mg 03/15/21 11:42 03/21/21 17:21 Sodium Bicarbonate 325 Mg Tab FEEDTUBE 325 mg PRN PRN Administration For Clogged Feeding Tube Sodium Chloride 10 ml 03/13/21 22:00 03/31/21 00:44 Sodium Chloride 0.9% 10 Ml Flush Syringe IV 10 ml BID INESSA Administration Sodium Chloride 10 ml 03/13/21 19:30 Sodium Chloride 0.9% 10 Ml Flush Syringe IV PRN PRN LINE FLUSH Zinc Sulfate 220 mg 03/14/21 22:00 03/30/21 21:02 Zinc Sulfate 220 Mg Cap PO 220 mg BID INESSA Administration
--- NOTE | 2021-03-31 08:34 | Hem/Onc Consultation ---
History of Present Illness - Reason for Consult Consult date: 03/31/21 thrombocytopenia - History of Present Illness Heme prelim note This is a 31yo female with past medical h/o asthma with prior intubation in 2019, morbid obesity, and Crohns disease Presented to the ER on 03/13/21 with c/o severe wheezing, shortness of breath with no relief by home nebulizer treatments Covid positive Now on HD Found to have low plt count 80s-100s noted to have generalized petechiae, purpura rash, possible punch biopsy On vent now DATA REVIEWED BELOW Plts 126 Hct 25.3 Liver enzymes wnl Creat 10.6 LDH 500 IMP: Thrombocytopenia secondary to covid infection or medication Hit negative this could be Hemolytic uremic syndrome "secondary to covid infection" (this is not TTP) REC/PLAN: Transfuse 1 unit rbc whenever hct<23 request plasma exchange for possible HUS (this is not TTP) Laboratory Last Values WBC 17.3 K/mm3 (4.5-11.0) H 03/31/21 05:20 Hgb 8.2 gm/dl (10.1-14.3) L 03/31/21 05:20 Hct 25.3 % (30.3-42.9) L 03/31/21 05:20 Plt Count 126 K/mm3 (140-440) L 03/31/21 05:20 Lymph % (Auto) 10.7 % (13.4-35.0) L 03/28/21 09:37 Frio % (Auto) 5.2 % (0.0-7.3) 03/28/21 09:37 Eos % (Auto) 3.9 % (0.0-4.3) 03/28/21 09:37 Baso % (Auto) 0.2 % (0.0-1.8) 03/28/21 09:37 Lymph # (Auto) 1.7 K/mm3 (1.2-5.4) 03/28/21 09:37 Frio # (Auto) 0.9 K/mm3 (0.0-0.8) H 03/28/21 09:37 Eos # (Auto) 0.6 K/mm3 (0.0-0.4) H 03/28/21 09:37 Baso # (Auto) 0.0 K/mm3 (0.0-0.1) 03/28/21 09:37 Seg Neutrophils % 80.0 % (40.0-70.0) H 03/28/21 09:37 Seg Neutrophils # 13.0 K/mm3 (1.8-7.7) H 03/28/21 09:37 PT 15.8 Sec. (12.2-14.9) H 03/22/21 13:40 INR 1.14 (0.87-1.13) H 03/22/21 13:40 APTT 26.8 Sec. (24.2-36.6) 03/22/21 13:40 D-Dimer 2607.12 ng/mlDDU (0-234) H 03/30/21 04:00 Creatinine 10.6 mg/dL (0.6-1.2) H 03/30/21 04:00 Phosphorus 8.20 mg/dL (2.5-4.5) H D 03/31/21 05:20 Ferritin 151.6 ng/mL (10.0-200.0) 03/18/21 04:30 AST 34 units/L (5-40) 03/29/21 04:45 ALT 8 units/L (7-56) 03/29/21 04:45 Alkaline Phosphatase 83 units/L (35-129) 03/29/21 04:45 Lactate Dehydrogenase 477 units/L (91-180) H 03/18/21 04:30 C-Reactive Protein 21.50 mg/dL (0.00-1.30) H 03/30/21 04:00 Albumin 2.2 g/dL (3.9-5) L 03/29/21 04:45 Coronavirus (PCR) Positive (Negative) A 03/14/21 Unknown Hepatitis A IgM Ab Non-reactive (NonReactive) 03/15/21 05:09 Hep Bs Antigen Nonreactive (Negative) 03/15/21 05:09 Hep B Core IgM Ab Non-reactive (NonReactive) 03/15/21 05:09 Hepatitis C Antibody Non-reactive (NonReactive) 03/15/21 05:09 Blood Type O POSITIVE 03/25/21 13:45 Antibody Screen Negative 03/25/21 13:45 Crossmatch See Detail 03/25/21 13:45 Medications and Allergies Allergies Allergy/AdvReac Type Severity Reaction Status Date / Time oxycodone HCl [From Percocet] Allergy Severe Swelling Verified 03/30/21 14:01 hydrocodone bitartrate Allergy Swelling Verified 03/31/21 08:20 [From Vicodin] Home Medications Medication Instructions Recorded Confirmed Last Taken Type Chlorhexidine Mouthwash [Peridex] 15 ml MM BID #1 bottle 10/11/20 03/13/21 Unknown Rx Clindamycin [Clindamycin CAP] 300 mg PO Q8H #21 cap 10/11/20 03/13/21 Unknown Rx Naproxen 500 mg PO Q12H PRN #12 tablet 10/11/20 03/13/21 Unknown Rx Butalb/Acetamin/Caff 50-325-40 1 - 2 tab PO Q6HR PRN #15 tab 12/05/20 03/13/21 Unknown Rx [Fioricet 50-325-40] Famotidine [Pepcid] 20 mg PO BID #30 tablet 12/05/20 03/13/21 Unknown Rx Ketorolac [Toradol] 10 mg PO Q8H PRN #20 tablet 12/05/20 03/13/21 Unknown Rx Ondansetron [Zofran Odt] 4 mg PO Q6HR PRN #20 tab.rapdis 12/05/20 03/13/21 Unknown Rx Albuterol Sulfate [Proair 90 mcg IH Q4HR PRN #2 aer.pow.ba 01/01/21 03/13/21 Unknown Rx Respiclick] Mupirocin [Bactroban 2% OINT] 1 applic TP BID 7 Days #1 tube 01/01/21 03/13/21 Unknown Rx Triamcinolone Aceton 0.1% (Nf) 1 applic TP BID 14 Days #1 tube 01/01/21 03/13/21 Unknown Rx [Kenalog (NF)] predniSONE [Deltasone] 40 mg PO QDAY #8 tab 01/01/21 03/13/21 Unknown Rx Active Meds: Active Medications Albuterol (Albuterol 2.5 Mg/3 Ml Nebu) 2.5 mg IH Q4HRT PRN PRN Reason: Shortness Of Breath Albuterol/Ipratropium (Ipratropium/Albuterol Sulfate 3 Ml Ampul.Neb) 1 ampul IH Q6HRT INESSA Last Admin: 03/31/21 02:39 Dose: 1 ampul Documented by: Lipase/Protease/Amylase (Lipase 10,500/Protease 25,000/Amylase 43,750 (Units) Dr Cap) 1 each FEEDTUBE PRN PRN PRN Reason: For Clogged Feeding Tube Apixaban (Apixaban 2.5 Mg Tab) 2.5 mg PO Q12HR INESSA; Protocol Last Admin: 03/30/21 21:02 Dose: 2.5 mg Documented by: Ascorbic Acid (Ascorbic Acid 500 Mg Tab) 500 mg PO BID INESSA Last Admin: 03/30/21 21:03 Dose: 500 mg Documented by: Dextrose (Dextrose 50% In Water (25gm) 50 Ml Syringe) 50 ml IV Q30MIN PRN; Protocol PRN Reason: Hypoglycemia Last Admin: 03/15/21 11:40 Dose: 50 ml Documented by: Diphenhydramine HCl (Diphenhydramine 50 Mg/Ml Vial) 25 mg IV Q6H INESSA Stop: 03/31/21 17:59 Last Admin: 03/31/21 06:13 Dose: 25 mg Documented by: Famotidine (Famotidine 10 Mg Tab) 10 mg PO BID INESSA Last Admin: 03/30/21 21:02 Dose: 10 mg Documented by: Fentanyl (Fentanyl 100 Mcg/2 Ml Inj) 50 mcg IV Q10MIN PRN PRN Reason: ANALGESIA Last Admin: 03/28/21 09:25 Dose: 50 mcg Documented by: Hydrophilic Ointment (Lip Therapy Vaseline) 1 applic TP Q2HR PRN PRN Reason: Dry Lips Propofol (Diprivan 10 Mg/Ml) 1,000 mg in 100 mls @ 4.123 mls/hr IV TITR [facility]; Protocol Last Titration: 03/31/21 08:02 Dose: 25 mcg/kg/min, 20.616 mls/hr Documented by: Fentanyl Citrate (Fentanyl Drip Premix) 2,000 mcg in 100 mls @ 6.872 mls/hr IV TITR [facility]; Protocol Last Admin: 03/31/21 05:31 Dose: 4 mcg/kg/hr, 27.488 mls/hr Documented by: Sodium Chloride (Nacl 0.9% 500 Ml) 500 mls @ 1 mls/hr IV DIRECT PRN PRN Reason: ARTERIAL LINE FLUSH Vasopressin 20 unit/ Sodium (Chloride) 101 mls @ 9.09 mls/hr IV TITR INESSA; Protocol Last Admin: 03/31/21 02:00 Dose: 0.03 units/min, 9.09 mls/hr Documented by: NORepinephrine/NS 8 MG-250 ML (Norepinephrine/Ns 8 Mg-250 Ml (Double Conc)) 8 mg in 250 mls @ 3.75 mls/hr IV TITRATE INESSA; Protocol Last Admin: 03/31/21 08:01 Dose: 30 mcg/min, 56.25 mls/hr Documented by: Cefepime HCl (Cefepime/Ns 2 Gm/100 Ml) 2 gm in 100 mls @ 200 mls/hr IV Q24H INESSA; Protocol Last Infusion: 03/30/21 19:26 Dose: Infused Documented by: Sodium Chloride (Nacl 0.9%) 100 mls @ 999 mls/hr IV KARLOS PRN PRN Reason: Hypotension Midazolam HCl 100 mg/ Sodium (Chloride) 100 mls @ 1 mls/hr IV TITR [facility]ESSA; Protocol Last Titration: 03/31/21 06:15 Dose: 3 mg/hr, 3 mls/hr Documented by: Vasopressin 20 unit/ Sodium (Chloride) 101 mls @ 9.09 mls/hr IV TITR INESSA Last Admin: 03/30/21 20:05 Dose: 0.03 units/min, 9.09 mls/hr Documented by: Phenylephrine HCl 100 mg/ (Sodium Chloride) 100 mls @ 3 mls/hr IV TITR [facility]ES[facility]; Protocol Last Titration: 03/31/21 08:04 Dose: 130 mcg/min, 7.8 mls/hr Documented by: Insulin Human Lispro (Insulin Lispro 100 Unit/Ml) 0 unit SUB-Q Q6HR INESSA; Protocol Last Admin: 03/31/21 06:20 Dose: 2 unit Documented by: Lorazepam (Lorazepam 2 Mg/Ml Vial) 1 mg IV Q4H PRN PRN Reason: Anxiety Last Admin: 03/30/21 19:58 Dose: 1 mg Documented by: Methylprednisolone Sodium Succinate (Methylprednisolone Sod Succinate 40 Mg/1 Ml Inj) 40 mg IV Q24HR INESSA Last Admin: 03/30/21 09:41 Dose: 40 mg Documented by: Midazolam HCl (Midazolam 2 Mg/2 Ml Inj) 2 mg IV Q10MIN PRN PRN Reason: Sedation Last Admin: 03/30/21 14:30 Dose: 2 mg Documented by: Multi-Ingred Cream/Lotion/Oil/Oint (Mineral Oil/Petrolatum, White Ophth Oint 3.5 Gm) 1 applic OU Q4HR PRN PRN Reason: Dry Eye(s) Last Admin: 03/30/21 09:43 Dose: 1 applic Documented by: Ondansetron HCl (Ondansetron 4 Mg/2 Ml Inj) 4 mg IV Q8H PRN PRN Reason: Nausea And Vomiting Last Admin: 03/21/21 12:05 Dose: 4 mg Documented by: Senna/Docusate Sodium (Sennosides/Docusate Sodium 8.6/50 Mg Tab) 1 tab FEEDTUBE BID [facility] Last Admin: 03/30/21 21:02 Dose: 1 tab Documented by: Simple Syrup (Simple Syrup 15 Ml) 15 ml FEEDTUBE PRN PRN PRN Reason: Hypoglycemia Simple Syrup (Simple Syrup 15 Ml) 30 ml FEEDTUBE PRN PRN PRN Reason: Hypoglycemia Sodium Bicarbonate (Sodium Bicarbonate 325 Mg Tab) 325 mg FEEDTUBE PRN PRN PRN Reason: For Clogged Feeding Tube Last Admin: 03/21/21 17:21 Dose: 325 mg Documented by: Sodium Chloride (Sodium Chloride 0.9% 10 Ml Flush Syringe) 10 ml IV BID [facility] Last Admin: 03/31/21 00:44 Dose: 10 ml Documented by: Sodium Chloride (Sodium Chloride 0.9% 10 Ml Flush Syringe) 10 ml IV PRN PRN PRN Reason: LINE FLUSH Zinc Sulfate (Zinc Sulfate 220 Mg Cap) 220 mg PO BID [facility] Last Admin: 03/30/21 21:02 Dose: 220 mg Documented by: Exam - Constitutional Vitals: Last Vital Signs Temp 101.7 F H 03/31/21 08:00 Pulse 120 H 03/31/21 08:15 Resp 38 H 03/31/21 08:15 BP 106/43 03/31/21 08:15 Pulse Ox 95 03/31/21 08:15 Results - Labs lab Results: Laboratory Results - last 24 hr 03/30/21 03/30/21 03/30/21 10:36 11:48 17:20 WBC RBC Hgb Hct MCV MCH MCHC RDW Plt Count ABG pH 7.224 L POC ABG pCO2 49.1 H POC ABG pO2 61.5 L POC ABG HCO3 19.8 ABG O2 Saturation 87.2 POC ABG Base Excess -7.6 ABG Hemoglobin 10.2 L ABG Oxyhemoglobin 86.2 L ABG Methemoglobin 0.3 ABG Sodium 129.6 L ABG Potassium 5.4 H ABG Chloride 96.0 L ABG Glucose 161 H Carboxyhemoglobin 0.8 FiO2 % 50.0 POC Glucose 163 H 130 H Phosphorus Magnesium Arterial Blood Glucose 161 H Arterial Blood Ionized Calcium 4.4 L 03/30/21 03/31/21 03/31/21 23:49 00:28 05:20 WBC 17.3 H RBC 2.99 L Hgb 8.2 L Hct 25.3 L MCV 84 MCH 27 L MCHC 32 RDW 18.3 H Plt Count 126 L ABG pH 7.249 L POC ABG pCO2 47.7 POC ABG pO2 77.7 L POC ABG HCO3 20.4 ABG O2 Saturation 93.6 POC ABG Base Excess -6.6 ABG Hemoglobin 9.0 L ABG Oxyhemoglobin 92.9 L ABG Methemoglobin 0.3 ABG Sodium 130.4 L ABG Potassium 4.7 H ABG Chloride 98.0 ABG Glucose 166 H Carboxyhemoglobin 0.4 L FiO2 % 50.0 POC Glucose 143 H Phosphorus Magnesium Arterial Blood Glucose 166 H Arterial Blood Ionized Calcium 4.3 L 03/31/21 03/31/21 05:20 06:18 WBC RBC Hgb Hct MCV MCH MCHC RDW Plt Count ABG pH POC ABG pCO2 POC ABG pO2 POC ABG HCO3 ABG O2 Saturation POC ABG Base Excess ABG Hemoglobin ABG Oxyhemoglobin ABG Methemoglobin ABG Sodium ABG Potassium ABG Chloride ABG Glucose Carboxyhemoglobin FiO2 % POC Glucose 155 H Phosphorus 8.20 H D Magnesium 1.90 Arterial Blood Glucose Arterial Blood Ionized Calcium
[2021-03-31] MEDS ORDERED: IBUPROFEN ORAL LIQD 100 MG/5 ML ORAL.LIQD PO PRN (09:31)
[2021-03-31] MEDS: FAMOTIDINE 10 MG TAB PO SCH (10:14)
[2021-03-31] MEDS: APIXABAN 2.5 MG TAB PO SCH (10:14)
[2021-03-31] MEDS: methylPREDNISolone Sod Suc 1,000 MG in SODIUM CHLORIDE 0.9% 250ML 250 ML IV SCH (10:15)
[2021-03-31] MEDS: ASCORBIC ACID 500 MG TAB PO SCH (10:15)
[2021-03-31] MEDS: SENNOSIDES/DOCUSATE SODIUM 8.6/50 MG TAB FEEDTUBE SCH (10:15)
[2021-03-31] MEDS: ZINC SULFATE 220 MG CAP PO SCH (10:15)
[2021-03-31 10:24] LABS: INR 1.2 (0.87-1.13)
[2021-03-31 10:33] LABS: Albumin 2.3 g/dL (3.9-5); Calcium 8.2 mg/dL (8.4-10.2)
[2021-03-31 11:06] LABS: ABG Base Excess TNR mmol/L (-2.0-3.0); ABG HCO3 TNR mmol/L (20.0-26.0); ABG Oxygen Saturation TNR % (95.0-99.0); ABG PCO2 TNR mm Hg; ABG PH TNR pH Units (7.350-7.450); ABG PO2 TNR mm Hg (80.0-90.0)
[2021-03-31 11:07] LABS: ABG Methemoglobin TNR % (0.0-1.5)
[2021-03-31 11:11] LABS: ABG Base Excess -5.1 mmol/L (-2.0-3.0); ABG Methemoglobin 0.6 % (0.0-1.5); ABG Oxygen Saturation 94.4 % (95.0-99.0); ABG PCO2 51.7 mm Hg; ABG PH 7.247 pH Units (7.350-7.450); ABG PO2 82.4 mm Hg (80.0-90.0)
--- NOTE | 2021-03-31 12:13 | Progress Note ---
Assessment and Plan Acute hypoxemic respiratory failure Acute asthma exacerbation Morbid obesity Crohn's disease Metabolic acidosis Acute kidney injury Coronavirus infection Pneumonia (CAP) Oropharyngeal dysphagia Obesity, if not mentioned above - continue cooling blanket - continue prn tylenol - tentatively for plasmapharesis / exchjange - continue Decadron - continue Versed drip re: ventilator dyssynchrony - changed to PCV with DP of 22 cm H2O - continue Apixaban for VTE prophylaxis - repeat ABG at 9pm and address - prognosis guarded but ARDS numbers improved overall - continue to wean vasopressors for target MAP > 65 mmHg - continue care as below otherwise; - nephrology input appreciated; HD/UF for toxin and volume clearance - HD/UF sessions per nephrology prescription - continue Daily SAT and SBT assessment as tolerated - continue to wean supplemental oxygen for target O2 sat's > 90% acutely - VAP bundle addressed - continue lung protective strategies - continue bronchodilators with pulmonary hygiene per RT - wean per pulmonary driven protocols otherwise - continue accuchecks with glycemic control per SSI (While critically ill target blood glucose of 140-180 mg/dL; avoid hypoglycemia) - sedation prn for target RASS 0 to -1 - avoid nephrotoxins, renally dose all medications - continue to avoid benzodiazepine's, reduce the possibility of delirium - AB's per ID rec's (Cefepime) - prn analgesia per CPOT score - Maintenance of sleep-wake cycle, avoid delirium - continue enteral nutritional support at goal rate as tolerated - G.I. & VTE prophylaxis - PT/OT/ROM exercises - continue mobility protocols for pressure ulcer prophylaxis - Monitor hemodynamics closely - continue other care per attending / other consultants - discharge planning ongoing concurrently COVID SPECIFIC INTERVENTIONS - Actemra ordered if available - Remdesivir as per ID/Pulmonary developed protocols (not a candidate) - continue systemic steroids for severe COVID-19 infection empirically - follow repeat COVID tests results - zinc and vitamin C supplementation - Monitor inflammatory markers per facility protocol - ferritin, Ddimer, CRP - therapeutic anticoagulation per system Protocol based on d-dimer and clinical considerations (VTE prophylaxis) - Continue contact and airborne isolation .... Re-evaluate in am & prn CONDITION: CRITICAL PROGNOSIS: GUARDED CODE STATUS: FULL CODE The high probability of a clinically significant, sudden or life-threatening deterioration of the [respiratory, cardiovascular, renal & neurologic] system(s) required my full and direct attention, intervention and personal management. The aggregate critical care time was [37] minutes without overlap. Time includes spent on; [x] Data Review and interpretation [x] Patient assessment and monitoring of vital signs [x] Documentation [x] Medication orders and management Subjective Date of service: 03/31/21 Principal diagnosis: Ac hypoxemic resp failure; AE-Asthma; SAI; Crohn's; COVID- 19; Pneumonia Interval history: Patient is seen today for: Acute hypoxemic respiratory failure; AE-Asthma; SAI; Crohn's disease; COVID-19 infection; Pneumonia (CAP) Seen and examined at bedside; 24hour events reviewed; nursing and respiratory care staff consulted; no adverse overnight events reported to me; resting in bed; remains on MVS; familly disputed tylenol allergy; fevers persistent and controlled with cooling blanket; oxygenation remains stable albeit still with ARDS numbers; still allowing permissive hypercapnia; hematology evaluation ongoing ? HUS / TTP syndrome Objective Vital Signs - 12hr 03/31/21 03/31/21 03/31/21 00:15 00:31 00:45 Temperature Pulse Rate 125 H 127 H 123 H Pulse Rate [ Anterior Bilateral Throughout] Respiratory 42 H 35 H 35 H Rate Respiratory Rate [Anterior Bilateral Throughout] Blood Pressure O2 Sat by Pulse 98 99 98 Oximetry 03/31/21 03/31/21 03/31/21 01:01 01:15 01:31 Temperature Pulse Rate 126 H 125 H 125 H Pulse Rate [ Anterior Bilateral Throughout] Respiratory 42 H 43 H 43 H Rate Respiratory Rate [Anterior Bilateral Throughout] Blood Pressure O2 Sat by Pulse 97 96 98 Oximetry 03/31/21 03/31/21 03/31/21 01:35 01:45 02:01 Temperature 38.8 F L Pulse Rate 129 H 127 H Pulse Rate [ Anterior Bilateral Throughout] Respiratory 43 H 44 H Rate Respiratory Rate [Anterior Bilateral Throughout] Blood Pressure 127/30 127/30 O2 Sat by Pulse 97 97 Oximetry 03/31/21 03/31/21 03/31/21 02:15 02:31 02:40 Temperature Pulse Rate 131 H 131 H Pulse Rate [ 132 H Anterior Bilateral Throughout] Respiratory 41 H 41 H Rate Respiratory 40 H Rate [Anterior Bilateral Throughout] Blood Pressure 127/30 127/30 O2 Sat by Pulse 99 99 Oximetry 03/31/21 03/31/21 03/31/21 02:45 03:01 03:15 Temperature Pulse Rate 135 H 138 H 137 H Pulse Rate [ 139 H Anterior Bilateral Throughout] Respiratory 37 H 44 H 45 H Rate Respiratory 41 H Rate [Anterior Bilateral Throughout] Blood Pressure 104/52 104/52 104/52 O2 Sat by Pulse 95 98 98 Oximetry 03/31/21 03/31/21 03/31/21 03:31 03:37 03:45 Temperature 102.5 F H Pulse Rate 135 H 134 H Pulse Rate [ Anterior Bilateral Throughout] Respiratory 42 H 44 H Rate Respiratory Rate [Anterior Bilateral Throughout] Blood Pressure 104/52 104/52 O2 Sat by Pulse 98 98 Oximetry 03/31/21 03/31/21 03/31/21 04:00 04:01 04:15 Temperature Pulse Rate 133 H 131 H Pulse Rate [ Anterior Bilateral Throughout] Respiratory 44 H 36 H Rate Respiratory Rate [Anterior Bilateral Throughout] Blood Pressure 104/52 104/52 O2 Sat by Pulse 96 97 99 Oximetry 03/31/21 03/31/21 03/31/21 04:31 04:42 04:45 Temperature 102.7 F H Pulse Rate 133 H 129 H Pulse Rate [ Anterior Bilateral Throughout] Respiratory 44 H 45 H Rate Respiratory Rate [Anterior Bilateral Throughout] Blood Pressure 104/52 104/52 O2 Sat by Pulse 97 96 Oximetry 03/31/21 03/31/21 03/31/21 05:01 05:15 05:30 Temperature Pulse Rate 129 H 128 H 129 H Pulse Rate [ Anterior Bilateral Throughout] Respiratory 41 H 43 H 42 H Rate Respiratory Rate [Anterior Bilateral Throughout] Blood Pressure 104/52 102/51 115/52 O2 Sat by Pulse 96 98 97 Oximetry 03/31/21 03/31/21 03/31/21 05:39 05:45 06:00 Temperature Pulse Rate 129 H 127 H 124 H Pulse Rate [ Anterior Bilateral Throughout] Respiratory 31 H 41 H Rate Respiratory Rate [Anterior Bilateral Throughout] Blood Pressure 115/52 115/52 109/49 O2 Sat by Pulse 98 98 95 Oximetry 03/31/21 03/31/21 03/31/21 06:15 06:30 06:45 Temperature Pulse Rate 123 H 121 H 121 H Pulse Rate [ Anterior Bilateral Throughout] Respiratory 37 H 37 H 35 H Rate Respiratory Rate [Anterior Bilateral Throughout] Blood Pressure 109/49 112/53 112/53 O2 Sat by Pulse 99 94 96 Oximetry 03/31/21 03/31/2103/31/21 07:00 07:15 07:30 Temperature Pulse Rate 119 H 120 H 120 H Pulse Rate [ Anterior Bilateral Throughout] Respiratory 36 H 34 H 33 H Rate Respiratory Rate [Anterior Bilateral Throughout] Blood Pressure 116/56 116/56 117/53 O2 Sat by Pulse 97 95 Oximetry 03/31/21 03/31/21 03/31/21 07:39 07:45 07:51 Temperature 101.7 F H Pulse Rate 125 H 121 H Pulse Rate [ Anterior Bilateral Throughout] Respiratory 36 H Rate Respiratory Rate [Anterior Bilateral Throughout] Blood Pressure 116/56 O2 Sat by Pulse 96 Oximetry 03/31/21 03/31/21 03/31/21 08:00 08:09 08:15 Temperature 101.7 F H Pulse Rate 124 H 120 H Pulse Rate [ Anterior Bilateral Throughout] Respiratory 39 H 36 H 38 H Rate Respiratory Rate [Anterior Bilateral Throughout] Blood Pressure 106/43 106/43 O2 Sat by Pulse 94 96 95 Oximetry 03/31/21 03/31/21 03/31/21 08:30 08:45 09:01 Temperature Pulse Rate 121 H 119 H 128 H Pulse Rate [ Anterior Bilateral Throughout] Respiratory 39 H 20 42 H Rate Respiratory Rate [Anterior Bilateral Throughout] Blood Pressure 115/49 115/49 143/81 O2 Sat by Pulse 96 97 96 Oximetry 03/31/21 03/31/21 03/31/21 09:15 09:30 09:45 Temperature Pulse Rate 130 H 126 H 128 H Pulse Rate [ Anterior Bilateral Throughout] Respiratory 40 H 44 H 41 H Rate Respiratory Rate [Anterior Bilateral Throughout] Blood Pressure 115/49 151/80 151/80 O2 Sat by Pulse 94 96 100 Oximetry 03/31/21 03/31/21 03/31/21 09:59 10:00 10:01 Temperature 101.1 F H Pulse Rate 132 H 128 H Pulse Rate [ 132 H Anterior Bilateral Throughout] Respiratory 42 H Rate Respiratory 43 H Rate [Anterior Bilateral Throughout] Blood Pressure 155/82 106/58 O2 Sat by Pulse 95 95 Oximetry 03/31/21 03/31/21 03/31/21 10:15 10:30 10:45 Temperature Pulse Rate 125 H 120 H 117 H Pulse Rate [ Anterior Bilateral Throughout] Respiratory 39 H 38 H 33 H Rate Respiratory Rate [Anterior Bilateral Throughout] Blood Pressure 155/82 123/65 123/65 O2 Sat by Pulse 95 94 97 Oximetry 03/31/21 03/31/21 03/31/21 11:00 11:15 11:30 Temperature 100.2 F H Pulse Rate 117 H 114 H 112 H Pulse Rate [ Anterior Bilateral Throughout] Respiratory 37 H 34 H 34 H Rate Respiratory Rate [Anterior Bilateral Throughout] Blood Pressure 137/79 123/65 142/80 O2 Sat by Pulse 96 96 94 Oximetry 03/31/21 03/31/21 03/31/21 11:45 11:57 11:58 Temperature Pulse Rate 113 H 113 H Pulse Rate [ Anterior Bilateral Throughout] Respiratory 36 H 36 H Rate Respiratory Rate [Anterior Bilateral Throughout] Blood Pressure 142/80 O2 Sat by Pulse 95 96 Oximetry 03/31/21 12:00 Temperature 99.5 F Pulse Rate 114 H Pulse Rate [ Anterior Bilateral Throughout] Respiratory 35 H Rate Respiratory Rate [Anterior Bilateral Throughout] Blood Pressure 150/60 O2 Sat by Pulse Oximetry Constitutional: appears uncomfortable, other (morbidly obese female with moderate ventilator dyssynchrony) Eyes: non-icteric, other (scleral erythema / bleeding is improving) ENT: oropharynx moist, other (ETT 25 cm BALJINDER) Neck: supple, no lymphadenopathy, no JVD, other (large circumference) Effort: mildly labored Ascultation: Bilateral: diminished breath sounds, rhonchi Percussion: Bilateral: not dull Cardiovascular: regular rate and rhythm Gastrointestinal: normoactive bowel sounds, soft, non-tender, non-distended (protuberant) Integumentary: rash ( ), other Extremities: no cyanosis, no edema, pulses normal, no ischemia or petechiae Neurologic: non-focal exam (grossly), pupils equal and round, CN II-XII normal, motor strength normal and, other (moves all extremities spontaneously) Psychiatric: other (unasble to assess) CBC and BMP: 04/01/21 Unknown 04/01/21 Unknown ABG, PT/INR, D-dimer: ABG ABG pH 7.247 pH Units (7.350-7.450) L 03/31/21 09:44 POC ABG pCO2 47.7 mmHg (32.0-48.0) 03/30/21 23:49 ABG pCO2 51.7 mm Hg 03/31/21 09:44 POC ABG pO2 77.7 mmHg (83-108) L 03/30/21 23:49 ABG pO2 82.4 mm Hg (80.0-90.0) 03/31/21 09:44 POC ABG HCO3 20.4 03/30/21 23:49 ABG O2 Saturation 94.4 % (95.0-99.0) L 03/31/21 09:44 PT/INR, D-dimer PT 16.5 Sec. (12.2-14.9) H 03/31/21 09:55 INR 1.20 (0.87-1.13) H 03/31/21 09:55 D-Dimer 2607.12 ng/mlDDU (0-234) H 03/30/21 04:00 Abnormal lab findings: Abnormal Labs 03/13/21 03/13/21 03/13/21 13:26 13:26 15:40 WBC RBC Hgb Hct MCH 27 L RDW 17.0 H Plt Count Lymph % (Auto) [place] # (Auto) Eos # (Auto) Seg Neutrophils % Seg Neutrophils # PT INR Fibrinogen D-Dimer ABG pH POC ABG pCO2 POC ABG pO2 ABG pO2 ABG HCO3 ABG O2 Saturation ABG Base Excess ABG Hemoglobin ABG Oxyhemoglobin ABG Sodium ABG Potassium ABG Chloride ABG Glucose Oxyhemoglobin Carboxyhemoglobin Sodium 136 L Potassium Chloride Carbon Dioxide BUN Creatinine Glucose 125 H 130 H POC Glucose Hemoglobin A1c Calcium Phosphorus Magnesium AST Alkaline Phosphatase Lactate Dehydrogenase 235 H C-Reactive Protein 4.30 H Total Protein Albumin Triglycerides Arterial Blood Glucose Arterial Blood Ionized Calcium Urine Creatinine Random Vancomycin Coronavirus (PCR) Crossmatch 03/13/21 03/14/21 03/14/21 21:33 03:35 06:21 WBC 20.0 H RBC Hgb Hct MCH 27 L RDW 17.5 H Plt Count Lymph % (Auto) 7.8 L [place] # (Auto) 1.3 H Eos # (Auto) Seg Neutrophils % 85.4 H Seg Neutrophils # 17.1 H PT INR Fibrinogen D-Dimer ABG pH 7.323 L 7.234 L POC ABG pCO2 POC ABG pO2 ABG pO2 69.8 L ABG HCO3 ABG O2 Saturation 92.9 L 94.9 L ABG Base Excess -3.3 L -5.4 L ABG Hemoglobin ABG Oxyhemoglobin ABG Sodium ABG Potassium ABG Chloride ABG Glucose Oxyhemoglobin 91.2 L 93.2 L Carboxyhemoglobin Sodium Potassium Chloride Carbon Dioxide BUN Creatinine Glucose POC Glucose Hemoglobin A1c Calcium Phosphorus Magnesium AST Alkaline Phosphatase Lactate Dehydrogenase C-Reactive Protein Total Protein Albumin Triglycerides Arterial Blood Glucose Arterial Blood Ionized Calcium Urine Creatinine Random Vancomycin Coronavirus (PCR) Crossmatch 03/14/21 03/14/21 03/14/21 06:21 07:47 11:21 WBC RBC Hgb Hct MCH RDW Plt Count Lymph % (Auto) [place] # (Auto) Eos # (Auto) Seg Neutrophils % Seg Neutrophils # PT INR Fibrinogen D-Dimer ABG pH POC ABG pCO2 POC ABG pO2 ABG pO2 ABG HCO3 ABG O2 Saturation ABG Base Excess ABG Hemoglobin ABG Oxyhemoglobin ABG Sodium ABG Potassium ABG Chloride ABG Glucose Oxyhemoglobin Carboxyhemoglobin Sodium 136 L 136 L Potassium 6.2 H* D 5.4 H Chloride Carbon Dioxide 21 L 21 L BUN Creatinine 1.5 H D 1.8 H Glucose 144 H 141 H POC Glucose 147 H Hemoglobin A1c Calcium Phosphorus Magnesium AST Alkaline Phosphatase Lactate Dehydrogenase C-Reactive Protein Total Protein 8.7 H 9.2 H Albumin 3.8 L Triglycerides Arterial Blood Glucose Arterial Blood Ionized Calcium Urine Creatinine Random Vancomycin Coronavirus (PCR) Crossmatch 03/14/21 03/14/21 03/14/21 17:29 17:50 18:35 WBC RBC Hgb Hct MCH RDW Plt Count Lymph % (Auto) [place] # (Auto) Eos # (Auto) Seg Neutrophils % Seg Neutrophils # PT INR Fibrinogen D-Dimer ABG pH POC ABG pCO2 POC ABG pO2 ABG pO2 ABG HCO3 ABG O2 Saturation ABG Base Excess ABG Hemoglobin ABG Oxyhemoglobin ABG Sodium ABG Potassium ABG Chloride ABG Glucose Oxyhemoglobin Carboxyhemoglobin Sodium 135 L Potassium 6.4 H* Chloride Carbon Dioxide 15 L BUN 26 H Creatinine 3.4 H D Glucose 165 H POC Glucose 209 H Hemoglobin A1c Calcium Phosphorus Magnesium AST Alkaline Phosphatase Lactate Dehydrogenase C-Reactive Protein Total Protein Albumin Triglycerides Arterial Blood Glucose Arterial Blood Ionized Calcium Urine Creatinine 40.1 H Random Vancomycin Coronavirus (PCR) Crossmatch 03/14/21 03/14/21 03/14/21 18:46 22:23 23:52 WBC RBC Hgb Hct MCH RDW Plt Count Lymph % (Auto) [place] # (Auto) Eos # (Auto) Seg Neutrophils % Seg Neutrophils # PT INR Fibrinogen D-Dimer ABG pH 7.270 L POC ABG pCO2 POC ABG pO2 63.4 L ABG pO2 ABG HCO3 ABG O2 Saturation ABG Base Excess ABG Hemoglobin ABG Oxyhemoglobin 90.2 L ABG Sodium 134.9 L ABG Potassium 5.3 H ABG Chloride ABG Glucose 134 H Oxyhemoglobin Carboxyhemoglobin Sodium 136 L Potassium 5.2 H Chloride Carbon Dioxide 20 L BUN 29 H Creatinine 3.6 H Glucose 236 H POC Glucose 128 H Hemoglobin A1c Calcium Phosphorus Magnesium AST Alkaline Phosphatase Lactate Dehydrogenase C-Reactive Protein Total Protein Albumin 3.2 L Triglycerides Arterial Blood Glucose 134 H Arterial Blood Ionized Calcium Urine Creatinine Random Vancomycin Coronavirus (PCR) Crossmatch 03/14/21 03/15/21 03/15/21 Unknown 05:00 05:09 WBC 22.5 H RBC Hgb Hct MCH 27 L RDW 17.6 H Plt Count Lymph % (Auto) [place] # (Auto) Eos # (Auto) Seg Neutrophils % Seg Neutrophils # PT INR Fibrinogen D-Dimer ABG pH POC ABG pCO2 POC ABG pO2 ABG pO2 ABG HCO3 ABG O2 Saturation ABG Base Excess ABG Hemoglobin ABG Oxyhemoglobin ABG Sodium ABG Potassium ABG Chloride ABG Glucose Oxyhemoglobin Carboxyhemoglobin Sodium Potassium Chloride Carbon Dioxide BUN Creatinine Glucose POC Glucose 116 H Hemoglobin A1c Calcium Phosphorus Magnesium AST Alkaline Phosphatase Lactate Dehydrogenase C-Reactive Protein Total Protein Albumin Triglycerides Arterial Blood Glucose Arterial Blood Ionized Calcium Urine Creatinine Random Vancomycin Coronavirus (PCR) Positive A Crossmatch 03/15/21 03/15/21 03/15/21 05:09 05:09 05:09 WBC RBC Hgb Hct MCH RDW Plt Count Lymph % (Auto) [place] # (Auto) Eos # (Auto) Seg Neutrophils % Seg Neutrophils # PT INR Fibrinogen D-Dimer ABG pH POC ABG pCO2 POC ABG pO2 ABG pO2 ABG HCO3 ABG O2 Saturation ABG Base Excess ABG Hemoglobin ABG Oxyhemoglobin ABG Sodium ABG Potassium ABG Chloride ABG Glucose Oxyhemoglobin Carboxyhemoglobin Sodium 136 L Potassium 6.5 H* D Chloride Carbon Dioxide 17 L BUN 41 H Creatinine 5.3 H Glucose 128 H POC Glucose Hemoglobin A1c 6.3 H Calcium Phosphorus Magnesium AST Alkaline Phosphatase Lactate Dehydrogenase C-Reactive Protein 12.10 H Total Protein Albumin 3.1 L Triglycerides Arterial Blood Glucose Arterial Blood Ionized Calcium Urine Creatinine Random Vancomycin Coronavirus (PCR) Crossmatch 03/15/21 03/15/21 03/15/21 10:00 21:50 23:39 WBC RBC Hgb Hct MCH RDW Plt Count Lymph % (Auto) [place] # (Auto) Eos # (Auto) Seg Neutrophils % Seg Neutrophils # PT INR Fibrinogen D-Dimer ABG pH 7.098 L POC ABG pCO2 72.7 H POC ABG pO2 ABG pO2 162.5 H ABG HCO3 ABG O2 Saturation ABG Base Excess ABG Hemoglobin 10.1 L ABG Oxyhemoglobin ABG Sodium ABG Potassium 5.7 H ABG Chloride ABG Glucose Oxyhemoglobin Carboxyhemoglobin 0.4 L Sodium Potassium Chloride Carbon Dioxide BUN Creatinine Glucose POC Glucose 156 H Hemoglobin A1c Calcium Phosphorus Magnesium AST Alkaline Phosphatase Lactate Dehydrogenase C-Reactive Protein Total Protein Albumin Triglycerides Arterial Blood Glucose Arterial Blood Ionized Calcium Urine Creatinine Random Vancomycin Coronavirus (PCR) Crossmatch 03/16/21 03/16/21 03/16/21 05:00 05:30 05:30 WBC 16.7 H RBC 3.59 L Hgb 9.6 L Hct 30.1 L MCH 27 L RDW 17.5 H Plt Count Lymph % (Auto) [place] # (Auto) Eos # (Auto) Seg Neutrophils % Seg Neutrophils # PT INR Fibrinogen D-Dimer ABG pH POC ABG pCO2 POC ABG pO2 ABG pO2 ABG HCO3 ABG O2 Saturation ABG Base Excess ABG Hemoglobin ABG Oxyhemoglobin ABG Sodium ABG Potassium ABG Chloride ABG Glucose Oxyhemoglobin Carboxyhemoglobin Sodium Potassium Chloride Carbon Dioxide BUN 46 H Creatinine 6.2 H Glucose 131 H POC Glucose Hemoglobin A1c Calcium Phosphorus 6.00 H D Magnesium AST Alkaline Phosphatase Lactate Dehydrogenase 318 H C-Reactive Protein 18.60 H Total Protein Albumin 3.0 L Triglycerides Arterial Blood Glucose Arterial Blood Ionized Calcium Urine Creatinine Random Vancomycin Coronavirus (PCR) Crossmatch 03/16/21 03/16/21 03/16/21 05:51 06:37 08:58 WBC RBC Hgb Hct MCH RDW Plt Count Lymph % (Auto) [place] # (Auto) Eos # (Auto) Seg Neutrophils % Seg Neutrophils # PT INR Fibrinogen D-Dimer 3041.12 H ABG pH POC ABG pCO2 POC ABG pO2 ABG pO2 141.5 H ABG HCO3 ABG O2 Saturation ABG Base Excess ABG Hemoglobin 9.7 L ABG Oxyhemoglobin ABG Sodium ABG Potassium ABG Chloride ABG Glucose Oxyhemoglobin Carboxyhemoglobin Sodium Potassium Chloride Carbon Dioxide BUN Creatinine Glucose POC Glucose 126 H Hemoglobin A1c Calcium Phosphorus Magnesium AST Alkaline Phosphatase Lactate Dehydrogenase C-Reactive Protein Total Protein Albumin Triglycerides Arterial Blood Glucose Arterial Blood Ionized Calcium Urine Creatinine Random Vancomycin Coronavirus (PCR) Crossmatch 03/16/21 03/16/21 03/16/21 12:11 16:51 21:00 WBC RBC Hgb Hct MCH RDW Plt Count Lymph % (Auto) [place] # (Auto) Eos # (Auto) Seg Neutrophils % Seg Neutrophils # PT INR Fibrinogen D-Dimer ABG pH 7.239 L POC ABG pCO2 61.5 H POC ABG pO2 80.8 L ABG pO2 ABG HCO3 ABG O2 Saturation ABG Base Excess ABG Hemoglobin 11.4 L ABG Oxyhemoglobin 93.5 L ABG Sodium ABG Potassium 5.4 H ABG Chloride ABG Glucose 137 H Oxyhemoglobin Carboxyhemoglobin 0.2 L Sodium Potassium Chloride Carbon Dioxide BUN Creatinine Glucose POC Glucose 156 H 133 H Hemoglobin A1c Calcium Phosphorus Magnesium AST Alkaline Phosphatase Lactate Dehydrogenase C-Reactive Protein Total Protein Albumin Triglycerides Arterial Blood Glucose 137 H Arterial Blood Ionized Calcium Urine Creatinine Random Vancomycin Coronavirus (PCR) Crossmatch 03/16/21 03/17/21 03/17/21 23:42 05:23 05:23 WBC 18.4 H RBC Hgb Hct MCH 27 L RDW 17.4 H Plt Count Lymph % (Auto) [place] # (Auto) Eos # (Auto) Seg Neutrophils % Seg Neutrophils # PT INR Fibrinogen D-Dimer ABG pH POC ABG pCO2 POC ABG pO2 ABG pO2 ABG HCO3 ABG O2 Saturation ABG Base Excess ABG Hemoglobin ABG Oxyhemoglobin ABG Sodium ABG Potassium ABG Chloride ABG Glucose Oxyhemoglobin Carboxyhemoglobin Sodium Potassium 5.2 H Chloride Carbon Dioxide 21 L BUN 79 H Creatinine 8.6 H Glucose 124 H POC Glucose 133 H Hemoglobin A1c Calcium Phosphorus Magnesium AST Alkaline Phosphatase Lactate Dehydrogenase C-Reactive Protein Total Protein Albumin 3.2 L Triglycerides 285 H Arterial Blood Glucose Arterial Blood Ionized Calcium Urine Creatinine Random Vancomycin Coronavirus (PCR) Crossmatch 03/17/21 03/17/21 03/17/21 05:23 10:48 12:20 WBC RBC Hgb Hct MCH RDW Plt Count Lymph % (Auto) [place] # (Auto) Eos # (Auto) Seg Neutrophils % Seg Neutrophils # PT INR Fibrinogen D-Dimer ABG pH 7.294 L POC ABG pCO2 POC ABG pO2 ABG pO2 90.3 H ABG HCO3 ABG O2 Saturation ABG Base Excess ABG Hemoglobin 9.9 L ABG Oxyhemoglobin ABG Sodium ABG Potassium ABG Chloride ABG Glucose Oxyhemoglobin Carboxyhemoglobin Sodium Potassium 5.2 H Chloride Carbon Dioxide 21 L BUN 79 H Creatinine 8.4 H Glucose 125 H POC Glucose 171 H Hemoglobin A1c Calcium Phosphorus 9.90 H D Magnesium 2.40 H AST Alkaline Phosphatase Lactate Dehydrogenase C-Reactive Protein Total Protein Albumin Triglycerides Arterial Blood Glucose Arterial Blood Ionized Calcium Urine Creatinine Random Vancomycin Coronavirus (PCR) Crossmatch 03/17/21 03/17/21 03/18/21 17:24 21:00 04:30 WBC RBC Hgb Hct MCH RDW Plt Count Lymph % (Auto) [place] # (Auto) Eos # (Auto) Seg Neutrophils % Seg Neutrophils # PT INR Fibrinogen D-Dimer 9953.09 H ABG pH 7.310 L POC ABG pCO2 54.5 H POC ABG pO2 62.3 L ABG pO2 ABG HCO3 ABG O2 Saturation ABG Base Excess ABG Hemoglobin 10.2 L ABG Oxyhemoglobin 88.6 L ABG Sodium ABG Potassium 4.7 H ABG Chloride ABG Glucose 99 H Oxyhemoglobin Carboxyhemoglobin 0.3 L Sodium Potassium Chloride Carbon Dioxide BUN Creatinine Glucose POC Glucose 121 H Hemoglobin A1c Calcium Phosphorus Magnesium AST Alkaline Phosphatase Lactate Dehydrogenase C-Reactive Protein Total Protein Albumin Triglycerides Arterial Blood Glucose 99 H Arterial Blood Ionized Calcium 4.3 L Urine Creatinine Random Vancomycin Coronavirus (PCR) Crossmatch 03/18/21 03/18/21 03/18/21 04:30 04:30 11:34 WBC 12.8 H RBC 3.49 L Hgb 9.4 L Hct 29.3 L MCH 27 L RDW 17.4 H Plt Count Lymph % (Auto) [place] # (Auto) Eos # (Auto) Seg Neutrophils % Seg Neutrophils # PT INR Fibrinogen D-Dimer ABG pH POC ABG pCO2 POC ABG pO2 ABG pO2 ABG HCO3 ABG O2 Saturation ABG Base Excess ABG Hemoglobin ABG Oxyhemoglobin ABG Sodium ABG Potassium ABG Chloride ABG Glucose Oxyhemoglobin Carboxyhemoglobin Sodium Potassium Chloride Carbon Dioxide BUN 69 H Creatinine 7.3 H Glucose POC Glucose 114 H Hemoglobin A1c Calcium 8.2 L Phosphorus 7.60 H D Magnesium AST Alkaline Phosphatase Lactate Dehydrogenase 477 H C-Reactive Protein 6.90 H Total Protein Albumin Triglycerides Arterial Blood Glucose Arterial Blood Ionized Calcium Urine Creatinine Random Vancomycin Coronavirus (PCR) Crossmatch 03/18/21 03/19/21 03/19/21 21:44 04:13 04:13 WBC 13.7 H RBC 3.32 L Hgb 9.0 L Hct 28.1 L MCH 27 L RDW 16.9 H Plt Count Lymph % (Auto) [place] # (Auto) Eos # (Auto) Seg Neutrophils % Seg Neutrophils # PT INR Fibrinogen D-Dimer ABG pH 7.290 L POC ABG pCO2 POC ABG pO2 ABG pO2 119.7 H ABG HCO3 28.0 H ABG O2 Saturation ABG Base Excess ABG Hemoglobin 9.6 L ABG Oxyhemoglobin ABG Sodium ABG Potassium ABG Chloride ABG Glucose Oxyhemoglobin Carboxyhemoglobin Sodium Potassium Chloride Carbon Dioxide BUN Creatinine Glucose POC Glucose Hemoglobin A1c Calcium Phosphorus Magnesium AST Alkaline Phosphatase Lactate Dehydrogenase C-Reactive Protein Total Protein Albumin Triglycerides Arterial Blood Glucose Arterial Blood Ionized Calcium Urine Creatinine Random Vancomycin 43.5 H Coronavirus (PCR) Crossmatch 03/19/21 03/19/21 03/19/21 04:13 05:59 11:40 WBC RBC Hgb Hct MCH RDW Plt Count Lymph % (Auto) [place] # (Auto) Eos # (Auto) Seg Neutrophils % Seg Neutrophils # PT INR Fibrinogen D-Dimer ABG pH POC ABG pCO2 POC ABG pO2 ABG pO2 ABG HCO3 ABG O2 Saturation ABG Base Excess ABG Hemoglobin ABG Oxyhemoglobin ABG Sodium ABG Potassium ABG Chloride ABG Glucose Oxyhemoglobin Carboxyhemoglobin Sodium Potassium Chloride Carbon Dioxide BUN 55 H Creatinine 7.0 H Glucose POC Glucose 116 H 145 H Hemoglobin A1c Calcium 8.1 L Phosphorus 7.90 H Magnesium AST Alkaline Phosphatase Lactate Dehydrogenase C-Reactive Protein Total Protein Albumin Triglycerides Arterial Blood Glucose Arterial Blood Ionized Calcium Urine Creatinine Random Vancomycin Coronavirus (PCR) Crossmatch 03/19/21 03/19/21 03/20/21 17:01 23:41 04:00 WBC 15.6 H RBC 3.55 L Hgb 9.6 L Hct MCH 27 L RDW 16.8 H Plt Count 139 L Lymph % (Auto) [place] # (Auto) Eos # (Auto) Seg Neutrophils % Seg Neutrophils # PT INR Fibrinogen D-Dimer ABG pH POC ABG pCO2 POC ABG pO2 ABG pO2 ABG HCO3 ABG O2 Saturation ABG Base Excess ABG Hemoglobin ABG Oxyhemoglobin ABG Sodium ABG Potassium ABG Chloride ABG Glucose Oxyhemoglobin Carboxyhemoglobin Sodium Potassium Chloride Carbon Dioxide BUN Creatinine Glucose POC Glucose 111 H 118 H Hemoglobin A1c Calcium Phosphorus Magnesium AST Alkaline Phosphatase Lactate Dehydrogenase C-Reactive Protein Total Protein Albumin Triglycerides Arterial Blood Glucose Arterial Blood Ionized Calcium Urine Creatinine Random Vancomycin Coronavirus (PCR) Crossmatch 03/20/21 03/20/21 03/20/21 04:00 04:00 04:37 WBC RBC Hgb Hct MCH RDW Plt Count Lymph % (Auto) [place] # (Auto) Eos # (Auto) Seg Neutrophils % Seg Neutrophils # PT INR Fibrinogen D-Dimer > 45573 H ABG pH 7.306 L POC ABG pCO2 POC ABG pO2 ABG pO2 ABG HCO3 27.9 H ABG O2 Saturation ABG Base Excess ABG Hemoglobin 5.2 L ABG Oxyhemoglobin ABG Sodium ABG Potassium ABG Chloride ABG Glucose Oxyhemoglobin Carboxyhemoglobin Sodium Potassium 5.2 H Chloride 97.6 L Carbon Dioxide BUN 52 H Creatinine 6.2 H Glucose 104 H POC Glucose Hemoglobin A1c Calcium Phosphorus 8.60 H Magnesium AST Alkaline Phosphatase Lactate Dehydrogenase C-Reactive Protein 6.90 H Total Protein Albumin Triglycerides Arterial Blood Glucose Arterial Blood Ionized Calcium Urine Creatinine Random Vancomycin Coronavirus (PCR) Crossmatch 03/20/21 03/20/21 03/20/21 13:50 17:46 17:56 WBC RBC Hgb Hct MCH RDW Plt Count Lymph % (Auto) [place] # (Auto) Eos # (Auto) Seg Neutrophils % Seg Neutrophils # PT INR Fibrinogen D-Dimer ABG pH POC ABG pCO2 POC ABG pO2 ABG pO2 ABG HCO3 ABG O2 Saturation ABG Base Excess ABG Hemoglobin ABG Oxyhemoglobin ABG Sodium ABG Potassium ABG Chloride ABG Glucose Oxyhemoglobin Carboxyhemoglobin Sodium Potassium Chloride Carbon Dioxide BUN 63 H 43 H Creatinine Glucose POC Glucose 145 H Hemoglobin A1c Calcium Phosphorus Magnesium AST Alkaline Phosphatase Lactate Dehydrogenase C-Reactive Protein Total Protein Albumin Triglycerides Arterial Blood Glucose Arterial Blood Ionized Calcium Urine Creatinine Random Vancomycin Coronavirus (PCR) Crossmatch 03/20/21 03/21/21 03/21/21 23:18 06:58 06:58 WBC 14.4 H RBC 3.41 L Hgb 9.5 L Hct 28.6 L MCH RDW 17.4 H Plt Count 107 L Lymph % (Auto) [place] # (Auto) Eos # (Auto) Seg Neutrophils % Seg Neutrophils # PT INR Fibrinogen D-Dimer ABG pH POC ABG pCO2 POC ABG pO2 ABG pO2 ABG HCO3 ABG O2 Saturation ABG Base Excess ABG Hemoglobin ABG Oxyhemoglobin ABG Sodium ABG Potassium ABG Chloride ABG Glucose Oxyhemoglobin Carboxyhemoglobin Sodium Potassium Chloride Carbon Dioxide BUN 60 H Creatinine 7.7 H Glucose POC Glucose 106 H Hemoglobin A1c Calcium Phosphorus Magnesium AST Alkaline Phosphatase Lactate Dehydrogenase C-Reactive Protein Total Protein Albumin Triglycerides Arterial Blood Glucose Arterial Blood Ionized Calcium Urine Creatinine Random Vancomycin Coronavirus (PCR) Crossmatch 03/21/21 03/21/21 03/21/21 11:11 18:04 Unknown WBC RBC Hgb Hct MCH RDW Plt Count Lymph % (Auto) [place] # (Auto) Eos # (Auto) Seg Neutrophils % Seg Neutrophils # PT INR Fibrinogen D-Dimer ABG pH 7.270 L POC ABG pCO2 58.7 H POC ABG pO2 76.9 L ABG pO2 ABG HCO3 ABG O2 Saturation ABG Base Excess ABG Hemoglobin 9.9 L ABG Oxyhemoglobin 92.4 L ABG Sodium 135.8 L ABG Potassium 4.6 H ABG Chloride ABG Glucose Oxyhemoglobin Carboxyhemoglobin 0.1 L Sodium Potassium Chloride Carbon Dioxide BUN Creatinine Glucose POC Glucose 109 H 141 H Hemoglobin A1c Calcium Phosphorus Magnesium AST Alkaline Phosphatase Lactate Dehydrogenase C-Reactive Protein Total Protein Albumin Triglycerides Arterial Blood Glucose Arterial Blood Ionized Calcium 4.5 L Urine Creatinine Random Vancomycin Coronavirus (PCR) Crossmatch 03/22/21 03/22/21 03/22/21 03:09 07:10 10:00 WBC RBC Hgb Hct MCH RDW Plt Count Lymph % (Auto) [place] # (Auto) Eos # (Auto) Seg Neutrophils % Seg Neutrophils # PT INR Fibrinogen D-Dimer ABG pH 7.206 L 7.245 L POC ABG pCO2 55.6 H POC ABG pO2 ABG pO2 90.6 H ABG HCO3 ABG O2 Saturation ABG Base Excess -4.4 L ABG Hemoglobin 9.0 L 8.4 L ABG Oxyhemoglobin ABG Sodium 123.4 L ABG Potassium 5.6 H ABG Chloride ABG Glucose 106 H Oxyhemoglobin 94.5 L Carboxyhemoglobin 0.1 L Sodium Potassium 5.4 H Chloride 96.8 L Carbon Dioxide BUN 89 H Creatinine 8.7 H Glucose 131 H POC Glucose Hemoglobin A1c Calcium Phosphorus Magnesium AST Alkaline Phosphatase Lactate Dehydrogenase C-Reactive Protein 9.40 H Total Protein Albumin Triglycerides Arterial Blood Glucose 106 H Arterial Blood Ionized Calcium Urine Creatinine Random Vancomycin Coronavirus (PCR) Crossmatch 03/22/21 03/22/21 03/22/21 10:00 12:37 13:19 WBC RBC 3.05 L Hgb 8.4 L Hct 25.5 L MCH RDW 17.5 H Plt Count 108 L Lymph % (Auto) [place] # (Auto) Eos # (Auto) Seg Neutrophils % Seg Neutrophils # PT INR Fibrinogen D-Dimer ABG pH POC ABG pCO2 POC ABG pO2 ABG pO2 ABG HCO3 ABG O2 Saturation ABG Base Excess ABG Hemoglobin ABG Oxyhemoglobin ABG Sodium ABG Potassium ABG Chloride ABG Glucose Oxyhemoglobin Carboxyhemoglobin Sodium Potassium Chloride Carbon Dioxide BUN Creatinine 8.7 H Glucose POC Glucose 140 H Hemoglobin A1c Calcium Phosphorus Magnesium AST Alkaline Phosphatase Lactate Dehydrogenase C-Reactive Protein Total Protein Albumin Triglycerides Arterial Blood Glucose Arterial Blood Ionized Calcium Urine Creatinine Random Vancomycin Coronavirus (PCR) Crossmatch 03/22/21 03/22/21 03/22/21 13:40 17:14 18:21 WBC RBC Hgb Hct MCH RDW Plt Count Lymph % (Auto) [place] # (Auto) Eos # (Auto) Seg Neutrophils % Seg Neutrophils # PT 15.8 H INR 1.14 H Fibrinogen D-Dimer > 39130 H ABG pH POC ABG pCO2 POC ABG pO2 ABG pO2 ABG HCO3 ABG O2 Saturation ABG Base Excess ABG Hemoglobin ABG Oxyhemoglobin ABG Sodium ABG Potassium ABG Chloride ABG Glucose Oxyhemoglobin Carboxyhemoglobin Sodium Potassium Chloride Carbon Dioxide BUN Creatinine Glucose POC Glucose 117 H 112 H Hemoglobin A1c Calcium Phosphorus Magnesium AST Alkaline Phosphatase Lactate Dehydrogenase C-Reactive Protein Total Protein Albumin Triglycerides Arterial Blood Glucose Arterial Blood Ionized Calcium Urine Creatinine Random Vancomycin Coronavirus (PCR) Crossmatch 03/22/21 03/22/21 03/23/21 21:25 22:57 04:30 WBC RBC Hgb Hct MCH RDW Plt Count Lymph % (Auto) [place] # (Auto) Eos # (Auto) Seg Neutrophils % Seg Neutrophils # PT INR Fibrinogen D-Dimer ABG pH 7.188 L* POC ABG pCO2 POC ABG pO2 ABG pO2 97.9 H ABG HCO3 ABG O2 Saturation ABG Base Excess -3.7 L ABG Hemoglobin 9.2 L ABG Oxyhemoglobin ABG Sodium ABG Potassium ABG Chloride ABG Glucose Oxyhemoglobin 94.4 L Carboxyhemoglobin Sodium Potassium Chloride Carbon Dioxide BUN Creatinine Glucose POC Glucose 106 H Hemoglobin A1c Calcium Phosphorus Magnesium AST Alkaline Phosphatase Lactate Dehydrogenase C-Reactive Protein Total Protein Albumin Triglycerides 381 H Arterial Blood Glucose Arterial Blood Ionized Calcium Urine Creatinine Random Vancomycin Coronavirus (PCR) Crossmatch 03/23/21 03/23/21 03/23/21 04:30 04:30 05:37 WBC 20.1 H RBC 3.17 L Hgb 8.6 L Hct 27.2 L MCH 27 L RDW 17.4 H Plt Count 118 L Lymph % (Auto) [place] # (Auto) Eos # (Auto) Seg Neutrophils % Seg Neutrophils # PT INR Fibrinogen D-Dimer ABG pH POC ABG pCO2 POC ABG pO2 ABG pO2 ABG HCO3 ABG O2 Saturation ABG Base Excess ABG Hemoglobin ABG Oxyhemoglobin ABG Sodium ABG Potassium ABG Chloride ABG Glucose Oxyhemoglobin Carboxyhemoglobin Sodium Potassium 5.2 H Chloride 97.1 L Carbon Dioxide 21 L BUN 82 H Creatinine 9.1 H Glucose 109 H POC Glucose 130 H Hemoglobin A1c Calcium Phosphorus 10.80 H Magnesium 3.50 H AST Alkaline Phosphatase Lactate Dehydrogenase C-Reactive Protein Total Protein Albumin Triglycerides Arterial Blood Glucose Arterial Blood Ionized Calcium Urine Creatinine Random Vancomycin Coronavirus (PCR) Crossmatch 03/23/21 03/23/21 03/23/21 08:44 11:30 16:09 WBC RBC Hgb Hct MCH RDW Plt Count Lymph % (Auto) [place] # (Auto) Eos # (Auto) Seg Neutrophils % Seg Neutrophils # PT INR Fibrinogen D-Dimer ABG pH 7.190 L POC ABG pCO2 57.9 H POC ABG pO2 79.2 L ABG pO2 ABG HCO3 ABG O2 Saturation ABG Base Excess ABG Hemoglobin 11.8 L ABG Oxyhemoglobin 92.3 L ABG Sodium 131.0 L ABG Potassium 5.0 H ABG Chloride ABG Glucose 122 H Oxyhemoglobin Carboxyhemoglobin 0.4 L Sodium Potassium Chloride Carbon Dioxide BUN Creatinine Glucose POC Glucose 129 H 148 H Hemoglobin A1c Calcium Phosphorus Magnesium AST Alkaline Phosphatase Lactate Dehydrogenase C-Reactive Protein Total Protein Albumin Triglycerides Arterial Blood Glucose 122 H Arterial Blood Ionized Calcium 4.4 L Urine Creatinine Random Vancomycin Coronavirus (PCR) Crossmatch 03/23/21 03/24/21 03/24/21 21:00 03:35 04:00 WBC 17.8 H RBC 2.96 L Hgb 8.1 L Hct 25.0 L MCH 27 L RDW 17.7 H Plt Count 124 L Lymph % (Auto) [place] # (Auto) Eos # (Auto) Seg Neutrophils % Seg Neutrophils # PT INR Fibrinogen D-Dimer ABG pH 7.223 L POC ABG pCO2 50.3 H POC ABG pO2 114.4 H ABG pO2 ABG HCO3 ABG O2 Saturation ABG Base Excess ABG Hemoglobin 8.8 L ABG Oxyhemoglobin ABG Sodium 130.4 L ABG Potassium 5.1 H ABG Chloride ABG Glucose 126 H Oxyhemoglobin Carboxyhemoglobin 0.2 L Sodium Potassium Chloride Carbon Dioxide BUN Creatinine Glucose POC Glucose 148 H Hemoglobin A1c Calcium Phosphorus Magnesium AST Alkaline Phosphatase Lactate Dehydrogenase C-Reactive Protein Total Protein Albumin Triglycerides Arterial Blood Glucose 126 H Arterial Blood Ionized Calcium 4.4 L Urine Creatinine Random Vancomycin Coronavirus (PCR) Crossmatch 03/24/21 03/24/21 03/24/21 04:00 06:49 12:29 WBC RBC Hgb Hct MCH RDW Plt Count Lymph % (Auto) [place] # (Auto) Eos # (Auto) Seg Neutrophils % Seg Neutrophils # PT INR Fibrinogen D-Dimer ABG pH POC ABG pCO2 POC ABG pO2 ABG pO2 ABG HCO3 ABG O2 Saturation ABG Base Excess ABG Hemoglobin ABG Oxyhemoglobin ABG Sodium ABG Potassium ABG Chloride ABG Glucose Oxyhemoglobin Carboxyhemoglobin Sodium Potassium Chloride 95.6 L Carbon Dioxide 20 L BUN 108 H Creatinine 10.8 H Glucose 155 H POC Glucose 136 H 142 H Hemoglobin A1c Calcium Phosphorus Magnesium AST Alkaline Phosphatase Lactate Dehydrogenase C-Reactive Protein Total Protein Albumin Triglycerides Arterial Blood Glucose Arterial Blood Ionized Calcium Urine Creatinine Random Vancomycin Coronavirus (PCR) Crossmatch 03/24/21 03/25/21 03/25/21 21:35 00:15 05:51 WBC RBC Hgb Hct MCH RDW Plt Count Lymph % (Auto) [place] # (Auto) Eos # (Auto) Seg Neutrophils % Seg Neutrophils # PT INR Fibrinogen D-Dimer ABG pH 7.241 L POC ABG pCO2 POC ABG pO2 ABG pO2 72.4 L ABG HCO3 ABG O2 Saturation 90.3 L ABG Base Excess ABG Hemoglobin 7.9 L ABG Oxyhemoglobin ABG Sodium ABG Potassium ABG Chloride ABG Glucose Oxyhemoglobin 88.4 L Carboxyhemoglobin Sodium Potassium Chloride Carbon Dioxide BUN Creatinine Glucose POC Glucose 110 H 121 H Hemoglobin A1c Calcium Phosphorus Magnesium AST Alkaline Phosphatase Lactate Dehydrogenase C-Reactive Protein Total Protein Albumin Triglycerides Arterial Blood Glucose Arterial Blood Ionized Calcium Urine Creatinine Random Vancomycin Coronavirus (PCR) Crossmatch 03/25/21 03/25/21 03/25/21 05:54 05:54 12:21 WBC 12.4 H RBC 2.52 L Hgb 6.9 L Hct 21.1 L MCH RDW 17.4 H Plt Count 102 L Lymph % (Auto) [place] # (Auto) Eos # (Auto) Seg Neutrophils % Seg Neutrophils # PT INR Fibrinogen D-Dimer ABG pH POC ABG pCO2 POC ABG pO2 ABG pO2 ABG HCO3 ABG O2 Saturation ABG Base Excess ABG Hemoglobin ABG Oxyhemoglobin ABG Sodium ABG Potassium ABG Chloride ABG Glucose Oxyhemoglobin Carboxyhemoglobin Sodium Potassium Chloride 96.7 L Carbon Dioxide BUN 81 H Creatinine 8.1 H Glucose 116 H POC Glucose 138 H Hemoglobin A1c Calcium 8.2 L Phosphorus Magnesium AST Alkaline Phosphatase Lactate Dehydrogenase C-Reactive Protein Total Protein Albumin Triglycerides Arterial Blood Glucose Arterial Blood Ionized Calcium Urine Creatinine Random Vancomycin Coronavirus (PCR) Crossmatch 03/25/21 03/25/21 03/25/21 13:45 17:32 21:30 WBC RBC Hgb Hct MCH RDW Plt Count Lymph % (Auto) [place] # (Auto) Eos # (Auto) Seg Neutrophils % Seg Neutrophils # PT INR Fibrinogen D-Dimer ABG pH POC ABG pCO2 POC ABG pO2 ABG pO2 70.2 L ABG HCO3 ABG O2 Saturation ABG Base Excess ABG Hemoglobin 6.8 L ABG Oxyhemoglobin ABG Sodium ABG Potassium ABG Chloride ABG Glucose Oxyhemoglobin 94.5 L Carboxyhemoglobin Sodium Potassium Chloride Carbon Dioxide BUN Creatinine Glucose POC Glucose 110 H Hemoglobin A1c Calcium Phosphorus Magnesium AST Alkaline Phosphatase Lactate Dehydrogenase C-Reactive Protein Total Protein Albumin Triglycerides Arterial Blood Glucose Arterial Blood Ionized Calcium Urine Creatinine Random Vancomycin Coronavirus (PCR) Crossmatch See Detail 03/25/21 03/25/21 03/26/21 23:29 Unknown 05:15 WBC 12.4 H 14.0 H RBC 2.49 L 2.83 L Hgb 6.8 L 7.6 L Hct 20.9 L 23.6 L MCH 27 L 27 L RDW 18.0 H 17.1 H Plt Count 107 L 116 L Lymph % (Auto) [place] # (Auto) Eos # (Auto) Seg Neutrophils % Seg Neutrophils # PT INR Fibrinogen D-Dimer ABG pH POC ABG pCO2 POC ABG pO2 ABG pO2 ABG HCO3 ABG O2 Saturation ABG Base Excess ABG Hemoglobin ABG Oxyhemoglobin ABG Sodium ABG Potassium ABG Chloride ABG Glucose Oxyhemoglobin Carboxyhemoglobin Sodium Potassium Chloride Carbon Dioxide BUN Creatinine Glucose POC Glucose 113 H Hemoglobin A1c Calcium Phosphorus Magnesium AST Alkaline Phosphatase Lactate Dehydrogenase C-Reactive Protein Total Protein Albumin Triglycerides Arterial Blood Glucose Arterial Blood Ionized Calcium Urine Creatinine Random Vancomycin Coronavirus (PCR) Crossmatch 03/26/21 03/26/21 03/26/21 05:15 05:35 09:50 WBC RBC Hgb Hct MCH RDW Plt Count Lymph % (Auto) [place] # (Auto) Eos # (Auto) Seg Neutrophils % Seg Neutrophils # PT INR Fibrinogen D-Dimer ABG pH POC ABG pCO2 POC ABG pO2 ABG pO2 79.9 L ABG HCO3 ABG O2 Saturation ABG Base Excess ABG Hemoglobin 7.1 L ABG Oxyhemoglobin ABG Sodium ABG Potassium ABG Chloride ABG Glucose Oxyhemoglobin 94.9 L Carboxyhemoglobin Sodium Potassium 3.4 L Chloride Carbon Dioxide BUN 70 H Creatinine 7.3 H Glucose 142 H POC Glucose 130 H Hemoglobin A1c Calcium 8.2 L Phosphorus Magnesium AST Alkaline Phosphatase Lactate Dehydrogenase C-Reactive Protein Total Protein Albumin Triglycerides 254 H Arterial Blood Glucose Arterial Blood Ionized Calcium Urine Creatinine Random Vancomycin Coronavirus (PCR) Crossmatch 03/26/21 03/26/21 03/26/21 11:45 16:36 23:33 WBC RBC Hgb Hct MCH RDW Plt Count Lymph % (Auto) [place] # (Auto) Eos # (Auto) Seg Neutrophils % Seg Neutrophils # PT INR Fibrinogen D-Dimer ABG pH POC ABG pCO2 POC ABG pO2 ABG pO2 ABG HCO3 ABG O2 Saturation ABG Base Excess ABG Hemoglobin ABG Oxyhemoglobin ABG Sodium ABG Potassium ABG Chloride ABG Glucose Oxyhemoglobin Carboxyhemoglobin Sodium Potassium Chloride Carbon Dioxide BUN Creatinine Glucose POC Glucose 123 H 121 H 120 H Hemoglobin A1c Calcium Phosphorus Magnesium AST Alkaline Phosphatase Lactate Dehydrogenase C-Reactive Protein Total Protein Albumin Triglycerides Arterial Blood Glucose Arterial Blood Ionized Calcium Urine Creatinine Random Vancomycin Coronavirus (PCR) Crossmatch 03/27/21 03/27/21 03/27/21 03:20 04:14 08:20 WBC 13.2 H RBC 2.82 L Hgb 7.9 L Hct 23.5 L MCH RDW 17.3 H Plt Count 125 L Lymph % (Auto) [place] # (Auto) Eos # (Auto) Seg Neutrophils % Seg Neutrophils # PT INR Fibrinogen D-Dimer ABG pH POC ABG pCO2 50.0 H POC ABG pO2 58.3 L ABG pO2 ABG HCO3 ABG O2 Saturation ABG Base Excess ABG Hemoglobin 11.3 L ABG Oxyhemoglobin 88.5 L ABG Sodium ABG Potassium ABG Chloride ABG Glucose 132 H Oxyhemoglobin Carboxyhemoglobin 0.2 L Sodium Potassium Chloride Carbon Dioxide BUN Creatinine Glucose POC Glucose 119 H Hemoglobin A1c Calcium Phosphorus Magnesium AST Alkaline Phosphatase Lactate Dehydrogenase C-Reactive Protein Total Protein Albumin Triglycerides Arterial Blood Glucose 132 H Arterial Blood Ionized Calcium Urine Creatinine Random Vancomycin Coronavirus (PCR) Crossmatch 03/27/21 03/27/21 03/27/21 08:20 11:39 17:32 WBC RBC Hgb Hct MCH RDW Plt Count Lymph % (Auto) [place] # (Auto) Eos # (Auto) Seg Neutrophils % Seg Neutrophils # PT INR Fibrinogen D-Dimer ABG pH POC ABG pCO2 POC ABG pO2 ABG pO2 ABG HCO3 ABG O2 Saturation ABG Base Excess ABG Hemoglobin ABG Oxyhemoglobin ABG Sodium ABG Potassium ABG Chloride ABG Glucose Oxyhemoglobin Carboxyhemoglobin Sodium Potassium Chloride Carbon Dioxide BUN 57 H Creatinine 6.8 H Glucose 131 H POC Glucose 121 H 126 H Hemoglobin A1c Calcium Phosphorus Magnesium AST Alkaline Phosphatase Lactate Dehydrogenase C-Reactive Protein Total Protein Albumin Triglycerides Arterial Blood Glucose Arterial Blood Ionized Calcium Urine Creatinine Random Vancomycin Coronavirus (PCR) Crossmatch 03/28/21 03/28/21 03/28/21 00:10 04:45 05:25 WBC RBC Hgb Hct MCH RDW Plt Count Lymph % (Auto) [place] # (Auto) Eos # (Auto) Seg Neutrophils % Seg Neutrophils # PT INR Fibrinogen D-Dimer ABG pH POC ABG pCO2 POC ABG pO2 ABG pO2 57.6 L ABG HCO3 27.1 H ABG O2 Saturation 88.5 L ABG Base Excess ABG Hemoglobin ABG Oxyhemoglobin ABG Sodium ABG Potassium ABG Chloride ABG Glucose Oxyhemoglobin 86.6 L Carboxyhemoglobin Sodium Potassium Chloride Carbon Dioxide BUN Creatinine Glucose POC Glucose 113 H 121 H Hemoglobin A1c Calcium Phosphorus Magnesium AST Alkaline Phosphatase Lactate Dehydrogenase C-Reactive Protein Total Protein Albumin Triglycerides Arterial Blood Glucose Arterial Blood Ionized Calcium Urine Creatinine Random Vancomycin Coronavirus (PCR) Crossmatch 03/28/21 03/28/21 03/28/21 09:37 09:37 11:48 WBC 16.3 H RBC 2.92 L Hgb 8.2 L Hct 24.8 L MCH RDW 17.5 H Plt Count Lymph % (Auto) 10.7 L [place] # (Auto) 0.9 H Eos # (Auto) 0.6 H Seg Neutrophils % 80.0 H Seg Neutrophils # 13.0 H PT INR Fibrinogen D-Dimer ABG pH POC ABG pCO2 POC ABG pO2 ABG pO2 ABG HCO3 ABG O2 Saturation ABG Base Excess ABG Hemoglobin ABG Oxyhemoglobin ABG Sodium ABG Potassium ABG Chloride ABG Glucose Oxyhemoglobin Carboxyhemoglobin Sodium Potassium Chloride Carbon Dioxide BUN 61 H Creatinine 7.7 H Glucose 148 H POC Glucose 123 H Hemoglobin A1c Calcium Phosphorus Magnesium AST Alkaline Phosphatase Lactate Dehydrogenase C-Reactive Protein Total Protein Albumin Triglycerides Arterial Blood Glucose Arterial Blood Ionized Calcium Urine Creatinine Random Vancomycin Coronavirus (PCR) Crossmatch 03/28/21 03/28/21 03/28/21 17:33 21:08 23:38 WBC RBC Hgb Hct MCH RDW Plt Count Lymph % (Auto) [place] # (Auto) Eos # (Auto) Seg Neutrophils % Seg Neutrophils # PT INR Fibrinogen D-Dimer ABG pH POC ABG pCO2 POC ABG pO2 80.5 L ABG pO2 ABG HCO3 ABG O2 Saturation ABG Base Excess ABG Hemoglobin 9.5 L ABG Oxyhemoglobin ABG Sodium 133.3 L ABG Potassium ABG Chloride ABG Glucose 134 H Oxyhemoglobin Carboxyhemoglobin 0.3 L Sodium Potassium Chloride Carbon Dioxide BUN Creatinine Glucose POC Glucose 128 H 112 H Hemoglobin A1c Calcium Phosphorus Magnesium AST Alkaline Phosphatase Lactate Dehydrogenase C-Reactive Protein Total Protein Albumin Triglycerides Arterial Blood Glucose 134 H Arterial Blood Ionized Calcium Urine Creatinine Random Vancomycin Coronavirus (PCR) Crossmatch 03/29/21 03/29/21 03/29/21 04:45 04:45 04:45 WBC 17.5 H RBC 3.15 L Hgb 8.8 L Hct 27.2 L MCH RDW 17.9 H Plt Count 132 L Lymph % (Auto) [place] # (Auto) Eos # (Auto) Seg Neutrophils % Seg Neutrophils # PT INR Fibrinogen D-Dimer ABG pH POC ABG pCO2 POC ABG pO2 ABG pO2 ABG HCO3 ABG O2 Saturation ABG Base Excess ABG Hemoglobin ABG Oxyhemoglobin ABG Sodium ABG Potassium ABG Chloride ABG Glucose Oxyhemoglobin Carboxyhemoglobin Sodium Potassium Chloride 97.7 L Carbon Dioxide 21 L BUN 78 H Creatinine 9.5 H Glucose 132 H POC Glucose Hemoglobin A1c Calcium Phosphorus Magnesium AST Alkaline Phosphatase Lactate Dehydrogenase C-Reactive Protein Total Protein Albumin 2.2 L Triglycerides 385 H Arterial Blood Glucose Arterial Blood Ionized Calcium Urine Creatinine Random Vancomycin Coronavirus (PCR) Crossmatch 03/29/21 03/29/21 03/29/21 11:35 16:50 21:06 WBC RBC Hgb Hct MCH RDW Plt Count Lymph % (Auto) [place] # (Auto) Eos # (Auto) Seg Neutrophils % Seg Neutrophils # PT INR Fibrinogen D-Dimer ABG pH POC ABG pCO2 POC ABG pO2 ABG pO2 64.9 L ABG HCO3 ABG O2 Saturation ABG Base Excess -5.2 L ABG Hemoglobin ABG Oxyhemoglobin ABG Sodium ABG Potassium ABG Chloride ABG Glucose Oxyhemoglobin 85.1 L Carboxyhemoglobin Sodium Potassium Chloride Carbon Dioxide BUN Creatinine Glucose POC Glucose 148 H 133 H Hemoglobin A1c Calcium Phosphorus Magnesium AST Alkaline Phosphatase Lactate Dehydrogenase C-Reactive Protein Total Protein Albumin Triglycerides Arterial Blood Glucose Arterial Blood Ionized Calcium Urine Creatinine Random Vancomycin Coronavirus (PCR) Crossmatch 03/29/21 03/30/21 03/30/21 Unknown 00:13 04:00 WBC 15.7 H RBC 3.18 L Hgb 8.6 L Hct 27.3 L MCH 27 L RDW 18.0 H Plt Count 86 L Lymph % (Auto) [place] # (Auto) Eos # (Auto) Seg Neutrophils % Seg Neutrophils # PT INR Fibrinogen D-Dimer ABG pH 7.258 L POC ABG pCO2 POC ABG pO2 ABG pO2 ABG HCO3 ABG O2 Saturation ABG Base Excess -4.9 L ABG Hemoglobin 8.8 L ABG Oxyhemoglobin ABG Sodium ABG Potassium ABG Chloride ABG Glucose Oxyhemoglobin 93.9 L Carboxyhemoglobin Sodium Potassium Chloride Carbon Dioxide BUN Creatinine Glucose POC Glucose 129 H Hemoglobin A1c Calcium Phosphorus Magnesium AST Alkaline Phosphatase Lactate Dehydrogenase C-Reactive Protein Total Protein Albumin Triglycerides Arterial Blood Glucose Arterial Blood Ionized Calcium Urine Creatinine Random Vancomycin Coronavirus (PCR) Crossmatch 03/30/21 03/30/21 03/30/21 04:00 04:00 06:02 WBC RBC Hgb Hct MCH RDW Plt Count Lymph % (Auto) [place] # (Auto) Eos # (Auto) Seg Neutrophils % Seg Neutrophils # PT INR Fibrinogen D-Dimer 2607.12 H ABG pH POC ABG pCO2 POC ABG pO2 ABG pO2 ABG HCO3 ABG O2 Saturation ABG Base Excess ABG Hemoglobin ABG Oxyhemoglobin ABG Sodium ABG Potassium ABG Chloride ABG Glucose Oxyhemoglobin Carboxyhemoglobin Sodium 133 L Potassium 5.2 H D Chloride 91.5 L Carbon Dioxide 18 L BUN 101 H Creatinine 10.6 H Glucose 149 H POC Glucose 130 H Hemoglobin A1c Calcium Phosphorus 10.30 H Magnesium AST Alkaline Phosphatase Lactate Dehydrogenase C-Reactive Protein 21.50 H Total Protein Albumin Triglycerides Arterial Blood Glucose Arterial Blood Ionized Calcium Urine Creatinine Random Vancomycin Coronavirus (PCR) Crossmatch 03/30/21 03/30/21 03/30/21 10:36 11:48 17:20 WBC RBC Hgb Hct MCH RDW Plt Count Lymph % (Auto) [place] # (Auto) Eos # (Auto) Seg Neutrophils % Seg Neutrophils # PT INR Fibrinogen D-Dimer ABG pH 7.224 L POC ABG pCO2 49.1 H POC ABG pO2 61.5 L ABG pO2 ABG HCO3 ABG O2 Saturation ABG Base Excess ABG Hemoglobin 10.2 L ABG Oxyhemoglobin 86.2 L ABG Sodium 129.6 L ABG Potassium 5.4 H ABG Chloride 96.0 L ABG Glucose 161 H Oxyhemoglobin Carboxyhemoglobin Sodium Potassium Chloride Carbon Dioxide BUN Creatinine Glucose POC Glucose 163 H 130 H Hemoglobin A1c Calcium Phosphorus Magnesium AST Alkaline Phosphatase Lactate Dehydrogenase C-Reactive Protein Total Protein Albumin Triglycerides Arterial Blood Glucose 161 H Arterial Blood Ionized Calcium 4.4 L Urine Creatinine Random Vancomycin Coronavirus (PCR) Crossmatch 03/30/21 03/31/21 03/31/21 23:49 00:28 05:20 WBC 17.3 H RBC 2.99 L Hgb 8.2 L Hct 25.3 L MCH 27 L RDW 18.3 H Plt Count 126 L Lymph % (Auto) [place] # (Auto) Eos # (Auto) Seg Neutrophils % Seg Neutrophils # PT INR Fibrinogen D-Dimer ABG pH 7.249 L POC ABG pCO2 POC ABG pO2 77.7 L ABG pO2 ABG HCO3 ABG O2 Saturation ABG Base Excess ABG Hemoglobin 9.0 L ABG Oxyhemoglobin 92.9 L ABG Sodium 130.4 L ABG Potassium 4.7 H ABG Chloride ABG Glucose 166 H Oxyhemoglobin Carboxyhemoglobin 0.4 L Sodium Potassium Chloride Carbon Dioxide BUN Creatinine Glucose POC Glucose 143 H Hemoglobin A1c Calcium Phosphorus Magnesium AST Alkaline Phosphatase Lactate Dehydrogenase C-Reactive Protein Total Protein Albumin Triglycerides Arterial Blood Glucose 166 H Arterial Blood Ionized Calcium 4.3 L Urine Creatinine Random Vancomycin Coronavirus (PCR) Crossmatch 03/31/21 03/31/21 03/31/21 05:20 06:18 09:44 WBC RBC Hgb Hct MCH RDW Plt Count Lymph % (Auto) [place] # (Auto) Eos # (Auto) Seg Neutrophils % Seg Neutrophils # PT INR Fibrinogen D-Dimer ABG pH 7.247 L POC ABG pCO2 POC ABG pO2 ABG pO2 ABG HCO3 ABG O2 Saturation 94.4 L ABG Base Excess -5.1 L ABG Hemoglobin 8.2 L ABG Oxyhemoglobin ABG Sodium ABG Potassium ABG Chloride ABG Glucose Oxyhemoglobin 92.4 L Carboxyhemoglobin Sodium Potassium Chloride Carbon Dioxide BUN Creatinine Glucose POC Glucose 155 H Hemoglobin A1c Calcium Phosphorus 8.20 H D Magnesium AST Alkaline Phosphatase Lactate Dehydrogenase C-Reactive Protein Total Protein Albumin Triglycerides Arterial Blood Glucose Arterial Blood Ionized Calcium Urine Creatinine Random Vancomycin Coronavirus (PCR) Crossmatch 03/31/21 03/31/21 03/31/21 09:55 09:55 09:55 WBC RBC Hgb Hct MCH RDW Plt Count Lymph % (Auto) [place] # (Auto) Eos # (Auto) Seg Neutrophils % Seg Neutrophils # PT 16.5 H INR 1.20 H Fibrinogen 491 H D-Dimer ABG pH POC ABG pCO2 POC ABG pO2 ABG pO2 ABG HCO3 ABG O2 Saturation ABG Base Excess ABG Hemoglobin ABG Oxyhemoglobin ABG Sodium ABG Potassium ABG Chloride ABG Glucose Oxyhemoglobin Carboxyhemoglobin Sodium 133 L Potassium Chloride 92.8 L Carbon Dioxide 20 L BUN 87 H Creatinine 8.9 H Glucose 177 H POC Glucose Hemoglobin A1c Calcium 8.2 L Phosphorus Magnesium AST 169 H Alkaline Phosphatase 187 H Lactate Dehydrogenase C-Reactive Protein Total Protein Albumin 2.3 L Triglycerides Arterial Blood Glucose Arterial Blood Ionized Calcium Urine Creatinine Random Vancomycin Coronavirus (PCR) Crossmatch 03/31/21 03/31/21 09:55 11:25 WBC RBC Hgb Hct MCH RDW Plt Count Lymph % (Auto) [place] # (Auto) Eos # (Auto) Seg Neutrophils % Seg Neutrophils # PT INR Fibrinogen D-Dimer ABG pH POC ABG pCO2 POC ABG pO2 ABG pO2 ABG HCO3 ABG O2 Saturation ABG Base Excess ABG Hemoglobin ABG Oxyhemoglobin ABG Sodium ABG Potassium ABG Chloride ABG Glucose Oxyhemoglobin Carboxyhemoglobin Sodium Potassium Chloride Carbon Dioxide BUN Creatinine Glucose POC Glucose 178 H Hemoglobin A1c Calcium Phosphorus Magnesium AST Alkaline Phosphatase Lactate Dehydrogenase 509 H C-Reactive Protein Total Protein Albumin Triglycerides Arterial Blood Glucose Arterial Blood Ionized Calcium Urine Creatinine Random Vancomycin Coronavirus (PCR) Crossmatch Chest x-ray: pending Allied health notes reviewed: nursing
[2021-03-31 12:42] LABS: ABG Base Excess -5.3 mmol/L (-2.0-3.0); ABG HCO3 21.8 mmol/L (20.0-26.0); ABG Methemoglobin 0.7 % (0.0-1.5); ABG Oxygen Saturation 93.2 % (95.0-99.0); ABG PCO2 52.6 mm Hg; ABG PH 7.235 pH Units (7.350-7.450); ABG PO2 76.8 mm Hg (80.0-90.0)
--- NOTE | 2021-03-31 13:13 | Progress Note ---
Assessment and Plan Cultures: SARS CoV2 PCR: Positive 03/13/2021 blood culture: No growth Resp cultures 03/14/2021: MSSA 03/23/2021 blood culture: No growth 03/23/2021 sputum culture: Usual respiratory maury 03/29/2021 blood culture: no growth A/P: 31-year-old female with asthma, morbid obesity, Crohn's disease admitted with cough and shortness of breath: #Septic shock: completed abx. #Bilateral pneumonia: Secondary to COVID-19. Severe disease, then developed MSSA in the lungs. D-dimer very high initially, which has shown improvement. #Acute hypoxic respiratory failure: on the vent. #Diffuse rash: Question of drug reaction #Hematology planning for plasma exchange for possible HUS. Also on high-dose pu lse steroids. #Acute renal failure: progressive. Nephrology following, initiated HD. #Acute asthma exacerbation #Morbid obesity Recs: -s/p Actemra 03/15/2021, completed steroids for COVID -Now on pulse steroids and planned for plasma exchange per hematology -completed Cefepime -poor prognosis Donn Solano MD, FACP [facility] O: [phone] F: [phone] Subjective Date of service: 03/31/21 Principal diagnosis: Ac hypoxemic resp failure; AE-Asthma; SAI; Crohn's; COVID- 19; Pneumonia Interval history: Remains on the vent. Patient is febrile. Hematology planning for plasma exchange for possible HUS. Also on high-dose pulse steroids. Objective - Exam Narrative Exam: Physical Exam (reviewed in chart to minimize risk of transmission) Constitutional: deferred Head, Ears, Nose: deferred Eyes: deferred Neck: deferred Oral: deferred Cardiovascular: deferred Respiratory: deferred GI: deferred Musculoskeletal: deferred Skin: deferred Hem/Lymphatic: deferred Psych: deferred Neurological: deferred - Constitutional Vitals: Vital Signs Temp Pulse Resp BP Pulse Ox 99.5 F 114 H 35 H 150/60 96 03/31/21 12:00 03/31/21 12:00 03/31/21 12:00 03/31/21 12:00 03/31/21 11:58 Temperature -Last 24 Hours Temperature 99.5 F Temperature 100.2 F Temperature 101.1 F Temperature 101.7 F Temperature 101.7 F Temperature 102.7 F Temperature 102.5 F Temperature 38.8 F Temperature 100.4 F Temperature 100.9 F Temperature 100.6 F Temperature 38.3 F - Labs CBC & Chem 7: 03/31/21 05:20 03/31/21 09:55 Labs: Abnormal lab results 03/30/21 03/30/21 03/31/21 Range/Units 17:20 23:49 00:28 WBC (4.5-11.0) K/mm3 RBC (3.65-5.03) M/mm3 Hgb (10.1-14.3) gm/dl Hct (30.3-42.9) % MCH (28-32) pg RDW (13.2-15.2) % Plt Count (140-440) K/mm3 PT (12.2-14.9) Sec. INR (0.87-1.13) Fibrinogen (211-480) mg/dl ABG pH 7.249 L (7.320-7.450) POC ABG pO2 77.7 L (83-108) mmHg ABG pO2 (80.0-90.0) mm Hg ABG O2 Saturation (95.0-99.0) % ABG Base Excess (-2.0-3.0) mmol/L ABG Hemoglobin 9.0 L (12.0-17.5) ABG Oxyhemoglobin 92.9 L (94-98) ABG Sodium 130.4 L (136.0-145.0) mmol/L ABG Potassium 4.7 H (3.40-4.50) mmol/L ABG Glucose 166 H (65-95) mg/dL Oxyhemoglobin (95.0-99.0) % Carboxyhemoglobin 0.4 L (0.5-1.5) Sodium (137-145) mmol/L Chloride (98-107) mmol/L Carbon Dioxide (22-30) mmol/L BUN (7-17) mg/dL Creatinine (0.6-1.2) mg/dL Glucose (65-100) mg/dL POC Glucose 130 H 143 H (70-105) mg/dL Calcium (8.4-10.2) mg/dL Phosphorus (2.5-4.5) mg/dL AST (5-40) units/L Alkaline Phosphatase (35-129) units/L Lactate Dehydrogenase (91-180) units/L Albumin (3.9-5) g/dL Arterial Blood Glucose 166 H (65-95) mg/dL Arterial Blood Ionized Calcium 4.3 L (4.6-5.3) mg/dL 03/31/21 03/31/21 03/31/21 Range/Units 05:20 05:20 06:18 WBC 17.3 H (4.5-11.0) K/mm3 RBC 2.99 L (3.65-5.03) M/mm3 Hgb 8.2 L (10.1-14.3) gm/dl Hct 25.3 L (30.3-42.9) % MCH 27 L (28-32) pg RDW 18.3 H (13.2-15.2) % Plt Count 126 L (140-440) K/mm3 PT (12.2-14.9) Sec. INR (0.87-1.13) Fibrinogen (211-480) mg/dl ABG pH (7.320-7.450) POC ABG pO2 (83-108) mmHg ABG pO2 (80.0-90.0) mm Hg ABG O2 Saturation (95.0-99.0) % ABG Base Excess (-2.0-3.0) mmol/L ABG Hemoglobin (12.0-17.5) ABG Oxyhemoglobin (94-98) ABG Sodium (136.0-145.0) mmol/L ABG Potassium (3.40-4.50) mmol/L ABG Glucose (65-95) mg/dL Oxyhemoglobin (95.0-99.0) % Carboxyhemoglobin (0.5-1.5) Sodium (137-145) mmol/L Chloride (98-107) mmol/L Carbon Dioxide (22-30) mmol/L BUN (7-17) mg/dL Creatinine (0.6-1.2) mg/dL Glucose (65-100) mg/dL POC Glucose 155 H (70-105) mg/dL Calcium (8.4-10.2) mg/dL Phosphorus 8.20 H D (2.5-4.5) mg/dL AST (5-40) units/L Alkaline Phosphatase (35-129) units/L Lactate Dehydrogenase (91-180) units/L Albumin (3.9-5) g/dL Arterial Blood Glucose (65-95) mg/dL Arterial Blood Ionized Calcium (4.6-5.3) mg/dL 03/31/21 03/31/21 03/31/21 Range/Units 09:44 09:55 09:55 WBC (4.5-11.0) K/mm3 RBC (3.65-5.03) M/mm3 Hgb (10.1-14.3) gm/dl Hct (30.3-42.9) % MCH (28-32) pg RDW (13.2-15.2) % Plt Count (140-440) K/mm3 PT 16.5 H (12.2-14.9) Sec. INR 1.20 H (0.87-1.13) Fibrinogen (211-480) mg/dl ABG pH 7.247 L (7.320-7.450) POC ABG pO2 (83-108) mmHg ABG pO2 (80.0-90.0) mm Hg ABG O2 Saturation 94.4 L (95.0-99.0) % ABG Base Excess -5.1 L (-2.0-3.0) mmol/L ABG Hemoglobin 8.2 L (12.0-17.5) ABG Oxyhemoglobin (94-98) ABG Sodium (136.0-145.0) mmol/L ABG Potassium (3.40-4.50) mmol/L ABG Glucose (65-95) mg/dL Oxyhemoglobin 92.4 L (95.0-99.0) % Carboxyhemoglobin (0.5-1.5) Sodium 133 L (137-145) mmol/L Chloride 92.8 L (98-107) mmol/L Carbon Dioxide 20 L (22-30) mmol/L BUN 87 H (7-17) mg/dL Creatinine 8.9 H (0.6-1.2) mg/dL Glucose 177 H (65-100) mg/dL POC Glucose (70-105) mg/dL Calcium 8.2 L (8.4-10.2) mg/dL Phosphorus (2.5-4.5) mg/dL AST 169 H (5-40) units/L Alkaline Phosphatase 187 H (35-129) units/L Lactate Dehydrogenase (91-180) units/L Albumin 2.3 L (3.9-5) g/dL Arterial Blood Glucose (65-95) mg/dL Arterial Blood Ionized Calcium (4.6-5.3) mg/dL 03/31/21 03/31/21 03/31/21 Range/Units 09:55 09:55 11:25 WBC (4.5-11.0) K/mm3 RBC (3.65-5.03) M/mm3 Hgb (10.1-14.3) gm/dl Hct (30.3-42.9) % MCH (28-32) pg RDW (13.2-15.2) % Plt Count (140-440) K/mm3 PT (12.2-14.9) Sec. INR (0.87-1.13) Fibrinogen 491 H (211-480) mg/dl ABG pH (7.320-7.450) POC ABG pO2 (83-108) mmHg ABG pO2 (80.0-90.0) mm Hg ABG O2 Saturation (95.0-99.0) % ABG Base Excess (-2.0-3.0) mmol/L ABG Hemoglobin (12.0-17.5) ABG Oxyhemoglobin (94-98) ABG Sodium (136.0-145.0) mmol/L ABG Potassium (3.40-4.50) mmol/L ABG Glucose (65-95) mg/dL Oxyhemoglobin (95.0-99.0) % Carboxyhemoglobin (0.5-1.5) Sodium (137-145) mmol/L Chloride (98-107) mmol/L Carbon Dioxide (22-30) mmol/L BUN (7-17) mg/dL Creatinine (0.6-1.2) mg/dL Glucose (65-100) mg/dL POC Glucose 178 H (70-105) mg/dL Calcium (8.4-10.2) mg/dL Phosphorus (2.5-4.5) mg/dL AST (5-40) units/L Alkaline Phosphatase (35-129) units/L Lactate Dehydrogenase 509 H (91-180) units/L Albumin (3.9-5) g/dL Arterial Blood Glucose (65-95) mg/dL Arterial Blood Ionized Calcium (4.6-5.3) mg/dL 03/31/21 Range/Units 12:30 WBC (4.5-11.0) K/mm3 RBC (3.65-5.03) M/mm3 Hgb (10.1-14.3) gm/dl Hct (30.3-42.9) % MCH (28-32) pg RDW (13.2-15.2) % Plt Count (140-440) K/mm3 PT (12.2-14.9) Sec. INR (0.87-1.13) Fibrinogen (211-480) mg/dl ABG pH 7.235 L (7.320-7.450) POC ABG pO2 (83-108) mmHg ABG pO2 76.8 L (80.0-90.0) mm Hg ABG O2 Saturation 93.2 L (95.0-99.0) % ABG Base Excess -5.3 L (-2.0-3.0) mmol/L ABG Hemoglobin 6.3 L (12.0-17.5) ABG Oxyhemoglobin (94-98) ABG Sodium (136.0-145.0) mmol/L ABG Potassium (3.40-4.50) mmol/L ABG Glucose (65-95) mg/dL Oxyhemoglobin 91.1 L (95.0-99.0) % Carboxyhemoglobin (0.5-1.5) Sodium (137-145) mmol/L Chloride (98-107) mmol/L Carbon Dioxide (22-30) mmol/L BUN (7-17) mg/dL Creatinine (0.6-1.2) mg/dL Glucose (65-100) mg/dL POC Glucose (70-105) mg/dL Calcium (8.4-10.2) mg/dL Phosphorus (2.5-4.5) mg/dL AST (5-40) units/L Alkaline Phosphatase (35-129) units/L Lactate Dehydrogenase (91-180) units/L Albumin (3.9-5) g/dL Arterial Blood Glucose (65-95) mg/dL Arterial Blood Ionized Calcium (4.6-5.3) mg/dL
--- NOTE | 2021-03-31 15:00 | Progress Note ---
<SAMARACRISTY NancyEloisa - Last Filed: 03/31/21 18:05> Assessment and Plan Assessment and plan: This is a 31-year-old female with asthma, morbid obesity and Crohn's disease admitted for COVID-19 pneumonia and and acute renal failure Neuro: Sedated -Intubated and sedated on propofol and fentanyl and versed -sedation to vent synchrony -Daily SAT/SBT when appropriate -Maintain sleep-wake cycle -Avoid delirium CV: Tachycardia, s/p hypertension now with hypotension -ST on the monitor -Vasopressor support with levophed, vasopressin and Anthony-Synephrine -Maintain MAP above 65 -Blood pressure monitoring via A-line Respiratory: Acute hypoxic respiratory failure, asthma exacerbation, COVID-19 pneumonia, ARDS, RUL PNA, bronchospasm (resolved) -DuoNeb, steroids -Patient was intubated on 03/14 for respiratory distress and inability to protect airway -Intubated with 7.50 ETT at 24 at the lip -A.m. vent settings: AC R 20, TV 450, Peep 20, Fio2 50% -See RT notes for titration -Changed by RT to PCV rate 30, peep 10, FiO2 70% d/t elevated peak pressure and RR -ABGs per CCM -CXR noted -VAP bundle -SPO2 monitoring -CCM/pulmonary consulted, appreciate recommendations -S/p BiPAP therapy GI: h/o MO and Crohn's disease -Nutrition consulted, appreciate recommendations -Tube feeding: Nepro -Free water 100 mL every 4 hours -BR: Sennormant -PPI -24 hours -2999 -BMS in place : Acute kidney injury likely secondary to ATN, hyperphosphatemia -Nephrology consulted, appreciate recommendations -Vas-Cath placed 03/15 -HD initiated 03/15 -Daily weights -Strict intake and output -Avoid nephrotoxic medications -Renally dose medications -Trend BMP -Intervene for electrolytes as needed -Daily HD per nephrology ID: COVID-19 pneumonia, leukocytosis, Staph aureus in tracheal aspirate, Conjunctival hemorrhage, ?HUS vs TTP vs drug reaction -Infectious disease consulted, appreciate recommendations -COVID-19 PCR positive -IV steroid -started on 1g methylprednisone for 3 days -s/p Actemra per ID -Per ID patient is on a candidate for remdesivir due to renal failure -Patient received 1 dose of remdesivir on 03/14 -Prophylactic anticoagulation based on D-dimer -s/p Cipro/Dex drops for 5 days -Abx per ID: [email or web address] 03/27-03/31 -Trend COVID-19 inflammatory markers -Isolation/droplet precautions -Vitamin C/vitamin D/zinc -03/13 BC x2 no growth to date -03/14 tracheal aspirate with Staph aureus (ID aware) -Monitor WBC and fever curve -We will initiate plasmapheresis per heme/onc -LDH 509, Eliezer pending, fibrinogen 491 Heme: Leukocytosis, elevated D-dimer, thrombocytopenia -Trend CBC -Transfuse hemoglobin less than 7 -Eliquis restarted 03/29 -SCDs to bilateral lower extremity while in bed -BLE duplex US shows no DVT Endo: Hyperglycemia -Hemoglobin A1c 6.3 -SSI -Accu-Cheks every 6 -Avoid hypoglycemia -Target blood glucose while critically ill 140-180 The high probability of a clinically significant, sudden or life threatening deterioration of the [multiple] system(s) required my full and direct attention, intervention and personal management. The aggregate critical care time was [120] minutes. This time is in addition to time spent performing reported procedures but includes the following: [x] Data Review and interpretation [x] Patient assessment and monitoring of vital signs [x] Documentation [x] Medication orders and management Disposition Plan: icu Total Time Spent with Patient (Minutes): 120 History Interval history: This is a 31-year-old female with asthma, history of prior intubation x1 in 02/2019, morbid obesity and Crohn's disease who presented to the emergency department on 03/13 with complaints of severe wheezing and shortness of breath over the past 4 days which is not relieved by home nebulizer treatments or rescue inhalers, cough without fever and no loss of sense of taste or smell. Patient is currently on vaccinated for COVID-19. In the emergency department patient was placed on BiPAP given steroids magnesium Solu-Medrol with improvement, CXR shows a streak of possible pneumonia. Patient was made a COVID-19 PUI and admitted to the hospital service. Patient was initially admitted to [facility] on BiPAP and was subsequently intubated due to severe respiratory distress and inability to protect her airway. Patient was admitted with acute hypoxic respiratory failure, acute asthma exacerbation, right upper lobe pneumonia, and as a COVID-19 PUI. Hospital Course to Date: 03/14/21- Patient is s/p intubation from this morning, sedated on propofol and fentanyl RASS -3 to -4. ETT above the clavicles advanced by 2cc. Continue nebs and IV steroids per [facility]. COVID swab pending. Hyperkalemia improved, X1 dose of kayaxalate ordered. Low BP and low urine output this am, fluid bolus challenge, 500cc of NS bolus given. Continue to monitor electrolytes and renal function, repeat BMP this afternoon. 03/15: Patient's renal function noted to be significantly worse today, patient was hyperkalemic and this was medically treated. Patient initiated on hemodialysis today. infectious disease was consulted today. 03/16: No acute events reported overnight, patient received hemodialysis yesterday. Patient is currently on propofol and fentanyl. 03/17: Patient received hemodialysis today, patient is slightly acidotic on ABG however [facility] is allowing for permissive hypercapnia, tracheal aspirate with Staph aureus and ID is aware. 03/18: Patient is having high residuals today and Reglan was started, patient will receive HD daily per nephrology, correct her change in FiO2 as tolerated. 03/19: HD per nephrology today, antibiotics changed to cefazolin. Patient did not tolerate tube feedings as she had high residuals this morning and they were turned off. Not restarted yet. Updated family at bedside today 03/20: HD today, ddimer noted to be >1000, Tolerating trickle TF. Stat BLE dopplar US 03/21: Patient is not tolerating TF, CXR shows worsening infiltrates, [facility] made changes to vent, TF on hold and started on IVF. 03/22/21- Patient remains intubated and on sedation. Persistent vomiting, TF held overnight, no documented BM, on reglan BR added, Shaun citarte & supp. HD today. Plan to restart TF at 10ml/hr, will reevaluate in the am. Persistent thrombocytopenia, Hep on hold, HIT panel ordered, PO eliquis initiated. 03/23/21- Patient remains on the vent and sedated on propofol and fentanyl RASS - 2 to -3. Possible SAT today as tolerated. Patient tolerated trickle feeds overnight, plan to advance TF by 10cc Q8 to 12hrs. Continue current BR and continue reglan for now. Slightr worsening in acidosis from this am, d/w CCM vent setting adjusted, will repeat ABG at 9pm. 03/24/21- Patient is on the vent and sedated, on fentanyl and propfol. Bilateral subconjunctival hemorrhage with periorbital edema noted this am, pupils are round and reactive, will Cipro/Dex [id number]. Worsening of kidney function from today's labs, plan for HD per Nephro. 03/25/21- Patient remains intubated and on sedatin, RASS 0 to -1, no longer on pressors. Sudden drop in H&H this am, bilateral subconjunctival hemorrhage with no sig change, no signs of any active bleeding. Patient appears neurologically intact, following commands, pupils are round and reactive with + gag and cough, moved all extremities. D/w [facility] patient is too unstable for CT at this time. Eliquis D/Devaughn, 1unit of PRBC ordered. Will continue to trend CBC. Plan for another section of HD today 03/26/21- Patient remains on the vent and sedated. VENICE reported from overnight. Plan for HD again today. H&H back up and stable, no AC at this time, SCDs for VTE phro. D/w [facility] patient is still too unstable for CT scan, will continue neuro exam and will continue to monitor H&H. 03/27/21- VENICE overnight. remains on the vent and sedated. Red localized rashes noted in patient upper chest and face, will r/o allergic reaction,CBC with auto diff and urine eosinophils ordered. Plan for HD today per Nephro. 03/28/21- Patient remains on the vent and sedated. Persistent fevers overnight unrelieved with antipyretic, currently on a cooling blanket. Back on pressors for hypotension, patient already on IV abx, last blood cultureX2 and sputum culture from 03/23 were negative. Continue IV abx, will reculture patient, orders placed for B.culture and sputum culture. ID is also on consult. will continue F/u on culture and continue to monitor BMP and CBC. 03/29: Patient restarted on prednisone given splotchy rash, will resume apixaban for VTE prophylaxis and repeat ABG at 9 PM. Remains with leukocytosis, elevated BUN/creatinine, elevated triglycerides and on Levophed 03/30: HD today, rash is still present and started on IV steroids. plt is low today but will continue to monitor. CCM made changes to vent-> decrease in MV. ABG in the pm and possible punch biopsy tomorrow if rash is not improved. propofol changed to versed 03/31: Heme/oncology consulted yesterday, will start patient on plasmapheresis for possible HUS. Cefepime discontinued today as today was the last day. Patient started on pulse dose steroids of 1 g/day for 3 days. Some improvement noted to eyes this morning. Patient was febrile overnight and received ibuprofen overnight. Acetaminophen allergy confirmed with family, allergy is only to oxycodone and hydrocodone but not the acetaminophen component. Confirmed by family patient has no reaction to [id number] Tylenol. Remains on vasopressor support and sedated with fentanyl, propofol and Versed. Vent mode changed to pressure control ventilation. Patient started on Arctic sun for fever control. Mother updated over telephone this a.m. and this p.m. family meeting held with her mother, sister x 2 and brother and with 2 other unknown people over the phone (1 female and one male) and nurse. Family states that patient is likely to an antibiotic possibly penicillins. This information was not available to us before. Hospitalist Physical - Constitutional Vitals: Temp Pulse Resp BP Pulse Ox 97.2 F L 103 H 33 H 108/66 91 03/31/21 14:01 03/31/21 14:45 03/31/21 14:45 03/31/21 14:45 03/31/21 14:45 General appearance: Present: no acute distress, well-nourished, obese, other (Intubated and sedated) - EENT Eyes: Present: PERRL, EOM intact, conjunctival injection ENT: dentition normal - Neck Neck: Present: normal ROM - Respiratory Respiratory effort: normal Respiratory: bilateral: diminished - Cardiovascular Rhythm: regular Heart Sounds: Present: S1 & S2. Absent: systolic murmur, diastolic murmur - Extremities Extremities: no ischemia, pulses intact, pulses symmetrical, normal temperature, normal color Extremity abnormal: edema Peripheral Pulses: within normal limits - Abdominal General gastrointestinal: soft, non-tender, non-distended, normal bowel sounds - Integumentary Integumentary: Present: warm, dry - Psychiatric Psychiatric: other (sedated) - Neurologic Neurologic: other (sedated) - Allied Health Allied health notes reviewed: nursing, RT, social work Results - Labs CBC & Chem 7: 03/31/21 05:20 03/31/21 09:55 Labs: Laboratory Last Values WBC 17.3 K/mm3 (4.5-11.0) H 03/31/21 05:20 RBC 2.99 M/mm3 (3.65-5.03) L 03/31/21 05:20 Hgb 8.2 gm/dl (10.1-14.3) L 03/31/21 05:20 Hct 25.3 % (30.3-42.9) L 03/31/21 05:20 MCV 84 fl (79-97) 03/31/21 05:20 MCH 27 pg (28-32) L 03/31/21 05:20 MCHC 32 % (30-34) 03/31/21 05:20 RDW 18.3 % (13.2-15.2) H 03/31/21 05:20 Plt Count 126 K/mm3 (140-440) L 03/31/21 05:20 Lymph % (Auto) 10.7 % (13.4-35.0) L 03/28/21 09:37 Mchenry % (Auto) 5.2 % (0.0-7.3) 03/28/21 09:37 Eos % (Auto) 3.9 % (0.0-4.3) 03/28/21 09:37 Baso % (Auto) 0.2 % (0.0-1.8) 03/28/21 09:37 Lymph # (Auto) 1.7 K/mm3 (1.2-5.4) 03/28/21 09:37 Mchenry # (Auto) 0.9 K/mm3 (0.0-0.8) H 03/28/21 09:37 Eos # (Auto) 0.6 K/mm3 (0.0-0.4) H 03/28/21 09:37 Baso # (Auto) 0.0 K/mm3 (0.0-0.1) 03/28/21 09:37 Seg Neutrophils % 80.0 % (40.0-70.0) H 03/28/21 09:37 Seg Neutrophils # 13.0 K/mm3 (1.8-7.7) H 03/28/21 09:37 PT 16.5 Sec. (12.2-14.9) H 03/31/21 09:55 INR 1.20 (0.87-1.13) H 03/31/21 09:55 APTT 26.8 Sec. (24.2-36.6) 03/22/21 13:40 Fibrinogen 491 mg/dl (211-480) H 03/31/21 09:55 D-Dimer 2607.12 ng/mlDDU (0-234) H 03/30/21 04:00 ABG pH 7.235 pH Units (7.350-7.450) L 03/31/21 12:30 POC ABG pCO2 47.7 mmHg (32.0-48.0) 03/30/21 23:49 ABG pCO2 52.6 mm Hg 03/31/21 12:30 POC ABG pO2 77.7 mmHg (83-108) L 03/30/21 23:49 ABG pO2 76.8 mm Hg (80.0-90.0) L 03/31/21 12:30 POC ABG HCO3 20.4 03/30/21 23:49 ABG HCO3 21.8 mmol/L (20.0-26.0) 03/31/21 12:30 ABG O2 Saturation 93.2 % (95.0-99.0) L 03/31/21 12:30 ABG O2 Content 8.2 (0.0-44) 03/31/21 12:30 POC ABG Base Excess -6.6 03/30/21 23:49 ABG Base Excess -5.3 mmol/L (-2.0-3.0) L 03/31/21 12:30 ABG Hemoglobin 6.3 gm/dl (12.0-16.0) L 03/31/21 12:30 ABG Oxyhemoglobin 92.9 (94-98) L 03/30/21 23:49 ABG Carboxyhemoglobin 1.6 % (0.0-5.0) 03/31/21 12:30 ABG Methemoglobin 0.7 % (0.0-1.5) 03/31/21 12:30 ABG Sodium 130.4 mmol/L (136.0-145.0) L 03/30/21 23:49 ABG Potassium 4.7 mmol/L (3.40-4.50) H 03/30/21 23:49 ABG Chloride 98.0 mmol/L (98-107) 03/30/21 23:49 ABG Glucose 166 mg/dL (65-95) H 03/30/21 23:49 ABG Lactate Cancelled 03/29/21 21:06 Oxyhemoglobin 91.1 % (95.0-99.0) L 03/31/21 12:30 Carboxyhemoglobin 0.4 (0.5-1.5) L 03/30/21 23:49 FiO2 70 % 03/31/21 12:30 FiO2 % 50.0 03/30/21 23:49 Sodium 133 mmol/L (137-145) L 03/31/21 09:55 Potassium 5.0 mmol/L (3.6-5.0) 03/31/21 09:55 Chloride 92.8 mmol/L (98-107) L 03/31/21 09:55 Carbon Dioxide 20 mmol/L (22-30) L 03/31/21 09:55 Anion Gap 25 mmol/L 03/31/21 09:55 BUN 87 mg/dL (7-17) H 03/31/21 09:55 Creatinine 8.9 mg/dL (0.6-1.2) H 03/31/21 09:55 Estimated GFR 6 ml/min 03/31/21 09:55 BUN/Creatinine Ratio 10 % 03/31/21 09:55 Glucose 177 mg/dL (65-100) H 03/31/21 09:55 POC Glucose 178 mg/dL (70-105) H 03/31/21 11:25 Hemoglobin A1c 6.3 % (4-6) H 03/15/21 05:09 Lactic Acid 2.00 mmol/L (0.7-2.0) 03/14/21 18:47 Calcium 8.2 mg/dL (8.4-10.2) L 03/31/21 09:55 Phosphorus 8.20 mg/dL (2.5-4.5) H D 03/31/21 05:20 Magnesium 1.90 mg/dL (1.7-2.3) 03/31/21 05:20 Ferritin 151.6 ng/mL (10.0-200.0) 03/18/21 04:30 Total Bilirubin 0.50 mg/dL (0.1-1.2) 03/31/21 09:55 Bilirubin Cancelled 03/29/21 21:06 AST 169 units/L (5-40) H 03/31/21 09:55 ALT 56 units/L (7-56) 03/31/21 09:55 Alkaline Phosphatase 187 units/L (35-129) H 03/31/21 09:55 Lactate Dehydrogenase 509 units/L (91-180) H 03/31/21 09:55 C-Reactive Protein 21.50 mg/dL (0.00-1.30) H 03/30/21 04:00 Total Protein 6.4 g/dL (6.3-8.2) 03/31/21 09:55 Albumin 2.3 g/dL (3.9-5) L 03/31/21 09:55 Albumin/Globulin Ratio 0.6 % 03/31/21 09:55 Triglycerides 385 mg/dL (2-149) H 03/29/21 04:45 Procalcitonin < 0.05 ng/mL (<0.15) 03/13/21 15:40 HCG, Qual Negative (Negative) 03/13/21 13:26 Arterial Blood Glucose 166 mg/dL (65-95) H 03/30/21 23:49 Arterial Blood Ionized Calcium 4.3 mg/dL (4.6-5.3) L 03/30/21 23:49 Urine Creatinine 40.1 mg/dL (0.1-20.0) H 03/14/21 17:50 Urine Sodium 124 mmol/L 03/14/21 17:50 Random Vancomycin 11.2 ug/mL (0-40.0) 03/20/21 04:23 Coronavirus (PCR) Positive (Negative) A 03/14/21 Unknown Hepatitis A IgM Ab Non-reactive (NonReactive) 03/15/21 05:09 Hep Bs Antigen Nonreactive (Negative) 03/15/21 05:09 Hep B Core IgM Ab Non-reactive (NonReactive) 03/15/21 05:09 Hepatitis C Antibody Non-reactive (NonReactive) 03/15/21 05:09 Blood Type O POSITIVE 03/25/21 13:45 Antibody Screen Negative 03/25/21 13:45 Crossmatch See Detail 03/25/21 13:45 Microbiology: Microbiology 03/29/21 23:26 Peripheral/Venous Blood Culture - Preliminary NO GROWTH AFTER 24 HOURS 03/29/21 23:30 Peripheral/Venous Blood Culture - Preliminary NO GROWTH AFTER 24 HOURS Bazan/IV: Voiding Method Incontinent Active Medications - Current Medications Current Medications: Generic Name Dose Route Start Last Admin Trade Name Freq PRN Reason Stop Dose Admin Acetaminophen 650 mg 03/31/21 12:41 Acetaminophen 325 Mg/10.15 Ml Oral Liqd Unit Dose FEEDTUBE Q6H PRN TEMP >/=100.4 Albuterol 2.5 mg 03/19/21 00:53 Albuterol 2.5 Mg/3 Ml Nebu IH Q4HRT PRN Shortness Of Breath Albuterol/Ipratropium 1 ampul 03/19/21 08:00 03/31/21 09:58 Ipratropium/Albuterol Sulfate 3 Ml Ampul.Neb IH 1 ampul Q6HRT INESSA Administration Lipase/Protease/Amylase 1 each 03/15/21 11:42 Lipase 10,500/Protease 25,000/Amylase 43,750 (Units) Dr White FEEDTUBE PRN PRN For Clogged Feeding Tube Apixaban 2.5 mg 03/29/21 13:00 03/31/21 10:14 Apixaban 2.5 Mg Tab PO 2.5 mg Q12HR INESSA Administration Protocol Ascorbic Acid 500 mg 03/14/21 22:00 03/31/21 10:15 Ascorbic Acid 500 Mg Tab PO 500 mg BID INESSA Administration Dextrose 50 ml 03/14/21 11:02 03/15/21 11:40 Dextrose 50% In Water (25gm) 50 Ml Syringe IV 50 ml Q30MIN PRN Administration Hypoglycemia Protocol Diphenhydramine HCl 25 mg 03/28/21 18:00 03/31/21 11:26 Diphenhydramine 50 Mg/Ml Vial IV 03/31/21 17:59 25 mg Q6H INESSA Administration Famotidine 10 mg 03/17/21 22:00 03/31/21 10:14 Famotidine 10 Mg Tab PO 10 mg BID INESSA Administration Fentanyl 50 mcg 03/15/21 10:43 03/28/21 09:25 Fentanyl 100 Mcg/2 Ml Inj IV 50 mcg Q10MIN PRN Administration ANALGESIA Hydrophilic Ointment 1 applic 03/14/21 17:50 Lip Therapy Vaseline TP Q2HR PRN Dry Lips Propofol 1,000 mg in 100 mls @ 4.123 mls/hr 03/15/21 11:00 03/31/21 13:56 Diprivan 10 Mg/Ml IV 30 mcg/kg/min TITR INESSA 24.739 mls/hr Titration Protocol 5 MCG/KG/MIN Fentanyl Citrate 2,000 mcg in 100 mls @ 6.872 mls/hr 03/15/21 11:00 03/31/21 11:49 Fentanyl Drip Premix IV 4 mcg/kg/hr TITR INESSA 27.488 mls/hr Administration Protocol 1 MCG/KG/HR Sodium Chloride 500 mls @ 1 mls/hr 03/16/21 17:19 Nacl 0.9% 500 Ml IV DIRECT PRN ARTERIAL LINE FLUSH NORepinephrine/NS 8 MG-250 ML 8 mg in 250 mls @ 3.75 mls/hr 03/23/21 11:00 03/31/21 13:56 Norepinephrine/Ns 8 Mg-250 Ml (Double Conc) IV 20 mcg/min TITRATE INESSA 37.5 mls/hr Titration Protocol 2 MCG/MIN Sodium Chloride 100 mls @ 999 mls/hr 03/30/21 09:21 Nacl 0.9% IV KARLOS PRN Hypotension Midazolam HCl 100 mg/ Sodium 100 mls @ 1 mls/hr 03/30/21 15:00 03/31/21 13:54 Chloride IV 3 mg/hr TITR INESSA 3 mls/hr Titration Protocol 1 MG/HR Vasopressin 20 unit/ Sodium 101 mls @ 9.09 mls/hr 03/30/21 20:00 03/31/21 11:51 Chloride IV 0.03 units/min TITR INESSA 9.09 mls/hr Administration 0.03 UNITS/MIN Phenylephrine HCl 100 mg/ 100 mls @ 3 mls/hr 03/31/21 04:00 03/31/21 13:49 Sodium Chloride IV 90 mcg/min TITR INESSA 5.4 mls/hr Titration Protocol 50 MCG/MIN Methylprednisolone Sodium 250 mls @ 250 mls/hr 03/31/21 09:00 03/31/21 10:15 Succinate 1,000 mg/ Sodium IV 04/02/21 09:59 250 mls/hr Chloride Q24H INESSA Administration Insulin Human Lispro 0 unit 03/14/21 12:00 03/31/21 11:42 Insulin Lispro 100 Unit/Ml SUB-Q 2 unit Q6HR INESSA Administration Protocol Lorazepam 1 mg 03/13/21 19:40 03/30/21 19:58 Lorazepam 2 Mg/Ml Vial IV 1 mg Q4H PRN Administration Anxiety Midazolam HCl 2 mg 03/30/21 14:19 03/30/21 14:30 Midazolam 2 Mg/2 Ml Inj IV 2 mg Q10MIN PRN Administration Sedation Multi-Ingred Cream/Lotion/Oil/Oint 1 applic 03/14/21 17:50 03/30/21 09:43 Mineral Oil/Petrolatum, White Ophth Oint 3.5 Gm OU 1 applic Q4HR PRN Administration Dry Eye(s) Ondansetron HCl 4 mg 03/13/21 19:30 03/21/21 12:05 Ondansetron 4 Mg/2 Ml Inj IV 4 mg Q8H PRN Administration Nausea And Vomiting Senna/Docusate Sodium 1 tab 03/14/21 22:00 03/31/21 10:15 Sennosides/Docusate Sodium 8.6/50 Mg Tab FEEDTUBE Not Given BID INESSA Simple Syrup 15 ml 03/15/21 11:42 Simple Syrup 15 Ml FEEDTUBE PRN PRN Hypoglycemia Simple Syrup 30 ml 03/15/21 11:42 Simple Syrup 15 Ml FEEDTUBE PRN PRN Hypoglycemia Sodium Bicarbonate 325 mg 03/15/21 11:42 03/21/21 17:21 Sodium Bicarbonate 325 Mg Tab FEEDTUBE 325 mg PRN PRN Administration For Clogged Feeding Tube Sodium Chloride 10 ml 03/13/21 22:00 03/31/21 10:15 Sodium Chloride 0.9% 10 Ml Flush Syringe IV 10 ml BID INESSA Administration Sodium Chloride 10 ml 03/13/21 19:30 Sodium Chloride 0.9% 10 Ml Flush Syringe IV PRN PRN LINE FLUSH Zinc Sulfate 220 mg 03/14/21 22:00 03/31/21 10:15 Zinc Sulfate 220 Mg Cap PO 220 mg BID INESSA Administration Nutrition/Malnutrition Assess - Dietary Evaluation Nutrition/Malnutrition Findings: Nutrition Notes Start: 03/15/21 11:06 Freq: Status: Active Protocol: Document 03/27/21 10:27 NHALL (Rec: 03/27/21 10:33 [facility] [id number]) Nutrition Notes Initial or Follow up Brief Note Subjective/Other Information Spoke with pt's RN via phone at 10:27. Pt tolerating TF at goal rate. Rectal tube remains in place. Percent of energy/protein needs met: 99% energy 73% pro Nutrition Intervention Follow-Up By: 04/02/21 Additional Comments F/U: stable TF, vent status, rectal tube, propofol, wt <SAURABH ALBRECHT - Last Filed: 04/03/21 07:24> Assessment and Plan Assessment and plan: I saw and evaluated the patient. Discussed with the nurse practitioner and agree with their findings and plan as documented in this note. Hospitalist Physical - Constitutional Vitals: Temp Pulse Resp BP Pulse Ox 98.6 F 100 H 23 88/30 97 04/03/21 04:00 04/03/21 05:15 04/03/21 05:15 04/03/21 05:15 04/03/21 05:15 Results - Labs CBC & Chem 7: 04/03/21 04:30 04/03/21 04:30 Labs: Laboratory Last Values WBC 31.1 K/mm3 (4.5-11.0) H 04/03/21 04:30 RBC 2.78 M/mm3 (3.65-5.03) L 04/03/21 04:30 Hgb 8.0 gm/dl (10.1-14.3) L 04/03/21 04:30 Hct 24.0 % (30.3-42.9) L 04/03/21 04:30 MCV 86 fl (79-97) 04/03/21 04:30 MCH 29 pg (28-32) 04/03/21 04:30 MCHC 34 % (30-34) 04/03/21 04:30 RDW 19.0 % (13.2-15.2) H 04/03/21 04:30 Plt Count 145 K/mm3 (140-440) 04/03/21 04:30 Lymph % (Auto) 10.7 % (13.4-35.0) L 03/28/21 09:37 Mchenry % (Auto) 5.2 % (0.0-7.3) 03/28/21 09:37 Eos % (Auto) Die Attaching Machine Tender 04/03/21 04:30 Baso % (Auto) 0.2 % (0.0-1.8) 03/28/21 09:37 Lymph # (Auto) 1.7 K/mm3 (1.2-5.4) 03/28/21 09:37 Mchenry # (Auto) 0.9 K/mm3 (0.0-0.8) H 03/28/21 09:37 Eos # (Auto) 0.6 K/mm3 (0.0-0.4) H 03/28/21 09:37 Baso # (Auto) 0.0 K/mm3 (0.0-0.1) 03/28/21 09:37 Add Manual Diff Complete 04/03/21 04:30 Total Counted 100 04/03/21 04:30 Seg Neutrophils % 80.0 % (40.0-70.0) H 03/28/21 09:37 Seg Neuts % (Manual) 44.0 % (40.0-70.0) 04/03/21 04:30 Lymphocytes % (Manual) 27.0 % (13.4-35.0) 04/03/21 04:30 Eosinophils % (Manual) 27.0 % (0.0-4.3) H 04/03/21 04:30 Basophils % (Manual) 2.0 % (0.0-1.8) H 04/03/21 04:30 Nucleated RBC % Not Reportable 04/03/21 04:30 Seg Neutrophils # 13.0 K/mm3 (1.8-7.7) H 03/28/21 09:37 Seg Neutrophils # Man 13.7 K/mm3 (1.8-7.7) H 04/03/21 04:30 Band Neutrophils # 0.0 K/mm3 04/03/21 04:30 Lymphocytes # (Manual) 8.4 K/mm3 (1.2-5.4) H 04/03/21 04:30 Abs React Lymphs (Man) 0.0 K/mm3 04/03/21 04:30 Monocytes # (Manual) 0.0 K/mm3 (0.0-0.8) 04/03/21 04:30 Eosinophils # (Manual) 8.4 K/mm3 (0.0-0.4) H 04/03/21 04:30 Basophils # (Manual) 0.6 K/mm3 (0.0-0.1) H 04/03/21 04:30 Metamyelocytes # 0.0 K/mm3 04/03/21 04:30 Myelocytes # 0.0 K/mm3 04/03/21 04:30 Promyelocytes # 0.0 K/mm3 04/03/21 04:30 Blast Cells # 0.0 K/mm3 04/03/21 04:30 WBC Morphology Not Reportable 04/03/21 04:30 Hypersegmented Neuts Not Reportable 04/03/21 04:30 Hyposegmented Neuts Not Reportable 04/03/21 04:30 Hypogranular Neuts Not Reportable 04/03/21 04:30 Smudge Cells Not Reportable 04/03/21 04:30 Toxic Granulation Not Reportable 04/03/21 04:30 Toxic Vacuolation Not Reportable 04/03/21 04:30 Dohle Bodies Not Reportable 04/03/21 04:30 Pelger-Huet Anomaly Not Reportable 04/03/21 04:30 Bridgette Rods Not Reportable 04/03/21 04:30 Platelet Estimate Not Reportable 04/03/21 04:30 Clumped Platelets Not Reportable 04/03/21 04:30 Plt Clumps, EDTA Not Reportable 04/03/21 04:30 Large Platelets Not Reportable 04/03/21 04:30 Giant Platelets Not Reportable 04/03/21 04:30 Platelet Satelliting Not Reportable 04/03/21 04:30 Plt Morphology Comment Not Reportable 04/03/21 04:30 RBC Morphology Normal 04/03/21 04:30 Dimorphic RBCs Not Reportable 04/03/21 04:30 Polychromasia Not Reportable 04/03/21 04:30 Hypochromasia Not Reportable 04/03/21 04:30 Poikilocytosis Not Reportable 04/03/21 04:30 Anisocytosis Not Reportable 04/03/21 04:30 Microcytosis Not Reportable 04/03/21 04:30 Macrocytosis Not Reportable 04/03/21 04:30 Spherocytes Not Reportable 04/03/21 04:30 Pappenheimer Bodies Not Reportable 04/03/21 04:30 Sickle Cells Not Reportable 04/03/21 04:30 Target Cells Not Reportable 04/03/21 04:30 Tear Drop Cells Not Reportable 04/03/21 04:30 Ovalocytes Not Reportable 04/03/21 04:30 Helmet Cells Not Reportable 04/03/21 04:30 [place] Bodies Not Reportable 04/03/21 04:30 [place] Rings Not Reportable 04/03/21 04:30 [place] Cells Not Reportable 04/03/21 04:30 Bite Cells Not Reportable 04/03/21 04:30 Crenated Cell Not Reportable 04/03/21 04:30 Elliptocytes Not Reportable 04/03/21 04:30 Acanthocytes (Spur) Not Reportable 04/03/21 04:30 Rouleaux Not Reportable 04/03/21 04:30 Hemoglobin C Crystals Not Reportable 04/03/21 04:30 Schistocytes Not Reportable 04/03/21 04:30 Malaria parasites Not Reportable 04/03/21 04:30 Percent Retic 4.52 % (0.78-2.58) H 03/31/21 09:49 Vaibhav Bodies Not Reportable 04/03/21 04:30 Hem Pathologist Commnt No 04/03/21 04:30 PT 16.0 Sec. (12.2-14.9) H 04/02/21 04:00 INR 1.16 (0.87-1.13) H 04/02/21 04:00 APTT 29.5 Sec. (24.2-36.6) 04/02/21 04:00 Fibrinogen 248 mg/dl (211-480) 04/02/21 04:00 D-Dimer 2607.12 ng/mlDDU (0-234) H 03/30/21 04:00 Heparin Anti-Xa, Unfract TNR 03/22/21 08:20 ABG pH Cancelled 04/02/21 20:40 POC ABG pCO2 Cancelled 04/02/21 20:40 ABG pCO2 58.6 mm Hg 04/02/21 20:40 POC ABG pO2 Cancelled 04/02/21 20:40 ABG pO2 111.9 mm Hg (80.0-90.0) H 04/02/21 20:40 POC ABG HCO3 Cancelled 04/02/21 20:40 ABG HCO3 18.9 mmol/L (20.0-26.0) L 04/02/21 20:40 ABG O2 Saturation Cancelled 04/02/21 20:40 ABG O2 Content Cancelled 04/02/21 20:40 POC ABG Base Excess Cancelled 04/02/21 20:40 ABG Base Excess -9.9 mmol/L (-2.0-3.0) L 04/02/21 20:40 ABG Hemoglobin Cancelled 04/02/21 20:40 ABG Oxyhemoglobin Cancelled 04/02/21 20:40 ABG Carboxyhemoglobin 1.6 % (0.0-5.0) 04/02/21 20:40 ABG Methemoglobin Cancelled 04/02/21 20:40 ABG Sodium Cancelled 04/02/21 20:40 ABG Potassium Cancelled 04/02/21 20:40 ABG Chloride Cancelled 04/02/21 20:40 ABG Glucose Cancelled 04/02/21 20:40 ABG Lactate Cancelled 04/02/21 20:40 Oxyhemoglobin 95.0 % (95.0-99.0) 04/02/21 20:40 Carboxyhemoglobin Cancelled 04/02/21 20:40 FiO2 50 % 04/02/21 20:40 FiO2 % Cancelled 04/02/21 20:40 Sodium 132 mmol/L (137-145) L 04/03/21 04:30 Potassium 5.8 mmol/L (3.6-5.0) H 04/03/21 04:30 Chloride 94.5 mmol/L (98-107) L 04/03/21 04:30 Carbon Dioxide 16 mmol/L (22-30) L 04/03/21 04:30 Anion Gap 27 mmol/L 04/03/21 04:30 BUN 97 mg/dL (7-17) H 04/03/21 04:30 Creatinine 7.7 mg/dL (0.6-1.2) H 04/03/21 04:30 Estimated GFR 7 ml/min 04/03/21 04:30 BUN/Creatinine Ratio 13 % 04/03/21 04:30 Glucose 230 mg/dL (65-100) H 04/03/21 04:30 POC Glucose 201 mg/dL (70-105) H 04/03/21 03:39 Hemoglobin A1c 6.3 % (4-6) H 03/15/21 05:09 Lactic Acid 2.00 mmol/L (0.7-2.0) 03/14/21 18:47 Calcium 7.6 mg/dL (8.4-10.2) L 04/03/21 04:30 Phosphorus 10.30 mg/dL (2.5-4.5) H 04/03/21 04:30 Magnesium 2.10 mg/dL (1.7-2.3) 04/03/21 04:30 Ferritin 151.6 ng/mL (10.0-200.0) 03/18/21 04:30 Total Bilirubin 0.50 mg/dL (0.1-1.2) 04/03/21 04:30 Bilirubin Cancelled 04/02/21 20:40 AST 47 units/L (5-40) H 04/03/21 04:30 ALT 30 units/L (7-56) 04/03/21 04:30 Alkaline Phosphatase 146 units/L (35-129) H 04/03/21 04:30 Lactate Dehydrogenase 509 units/L (91-180) H 03/31/21 09:55 C-Reactive Protein 21.50 mg/dL (0.00-1.30) H 03/30/21 04:00 Total Protein 5.2 g/dL (6.3-8.2) L 04/03/21 04:30 Albumin 3.4 g/dL (3.9-5) L 04/03/21 04:30 Albumin/Globulin Ratio 1.9 % 04/03/21 04:30 Triglycerides 579 mg/dL (2-149) H 04/02/21 05:00 Procalcitonin < 0.05 ng/mL (<0.15) 03/13/21 15:40 HCG, Qual Negative (Negative) 03/13/21 13:26 Arterial Blood Glucose Cancelled 04/02/21 20:40 Arterial Blood Ionized Calcium Cancelled 04/02/21 20:40 Urine Creatinine 40.1 mg/dL (0.1-20.0) H 03/14/21 17:50 Urine Sodium 124 mmol/L 03/14/21 17:50 Random Vancomycin 11.2 ug/mL (0-40.0) 03/20/21 04:23 Heparin-induced Plt Ab Negative (Negative) 03/22/21 08:20 UF Heparin High Dose TNR 03/22/21 08:20 JUAN UFH Low Dose 0.1 TNR 03/22/21 08:20 JUAN UFH Low Dose 0.5 TNR 03/22/21 08:20 Coronavirus (PCR) Positive (Negative) A 03/14/21 Unknown Hepatitis A IgM Ab Non-reactive (NonReactive) 03/15/21 05:09 Hep Bs Antigen Nonreactive (Negative) 03/15/21 05:09 Hep B Core IgM Ab Non-reactive (NonReactive) 03/15/21 05:09 Hepatitis C Antibody Non-reactive (NonReactive) 03/15/21 05:09 Schistocytes Smear None seen 03/31/21 12:11 Blood Type O POSITIVE 03/25/21 13:45 Antibody Screen Negative 03/25/21 13:45 Direct Antiglob Test Negative 03/31/21 23:18 NIKOLE, Poly Interpret Negative 03/31/21 23:18 Crossmatch See Detail 03/25/21 13:45 Microbiology: Microbiology 03/29/21 23:26 Peripheral/Venous Blood Culture - Preliminary NO GROWTH AFTER 4 DAYS 03/29/21 23:30 Peripheral/Venous Blood Culture - Preliminary NO GROWTH AFTER 4 DAYS Bazan/IV: Voiding Method Incontinent Active Medications - Current Medications Current Medications: Generic Name Dose Route Start Last Admin Trade Name Freq PRN Reason Stop Dose Admin Acetaminophen 650 mg 03/31/21 12:41 04/02/21 14:30 Acetaminophen 325 Mg/10.15 Ml Oral Liqd Unit Dose FEEDTUBE 650 mg Q6H PRN Administration TEMP >/=100.4 Albumin Human 25 gm 04/01/21 08:19 04/01/21 16:23 Albumin Human 25% (25 Gm/100 Ml) Inj IV 25 gm KARLOS PRN Administration Hypotension Albuterol 2.5 mg 03/19/21 00:53 Albuterol 2.5 Mg/3 Ml Nebu IH Q4HRT PRN Shortness Of Breath Albuterol/Ipratropium 1 ampul 03/19/21 08:00 04/03/21 01:08 Ipratropium/Albuterol Sulfate 3 Ml Ampul.Neb IH 1 ampul Q6HRT INESSA Administration Lipase/Protease/Amylase 1 each 03/15/21 11:42 Lipase 10,500/Protease 25,000/Amylase 43,750 (Units) Dr Cap FEEDTUBE PRN PRN For Clogged Feeding Tube Apixaban 2.5 mg 03/29/21 13:00 04/02/21 21:53 Apixaban 2.5 Mg Tab PO 2.5 mg Q12HR INESSA Administration Protocol Ascorbic Acid 500 mg 03/14/21 22:00 04/02/21 21:53 Ascorbic Acid 500 Mg Tab PO 500 mg BID INESSA Administration Dextrose 50 ml 03/14/21 11:02 03/15/21 11:40 Dextrose 50% In Water (25gm) 50 Ml Syringe IV 50 ml Q30MIN PRN Administration Hypoglycemia Protocol Famotidine 10 mg 03/17/21 22:00 04/02/21 21:53 Famotidine 10 Mg Tab PO 10 mg BID INESSA Administration Fentanyl 50 mcg 03/15/21 10:43 03/28/21 09:25 Fentanyl 100 Mcg/2 Ml Inj IV 50 mcg Q10MIN PRN Administration ANALGESIA Hydrophilic Ointment 1 applic 03/14/21 17:50 Lip Therapy Vaseline TP Q2HR PRN Dry Lips Propofol 1,000 mg in 100 mls @ 4.123 mls/hr 03/15/21 11:00 04/03/21 04:25 Diprivan 10 Mg/Ml IV 30 mcg/kg/min TITR INESSA 24.739 mls/hr Administration Protocol 5 MCG/KG/MIN Fentanyl Citrate 2,000 mcg in 100 mls @ 6.872 mls/hr 03/15/21 11:00 04/03/21 03:46 Fentanyl Drip Premix IV 3 mcg/kg/hr TITR INESSA 20.616 mls/hr Administration Protocol 1 MCG/KG/HR Sodium Chloride 500 mls @ 1 mls/hr 03/16/21 17:19 Nacl 0.9% 500 Ml IV DIRECT PRN ARTERIAL LINE FLUSH NORepinephrine/NS 8 MG-250 ML 8 mg in 250 mls @ 3.75 mls/hr 03/23/21 11:00 04/03/21 06:27 Norepinephrine/Ns 8 Mg-250 Ml (Double Conc) IV 18 mcg/min TITRATE INESSA 33.75 mls/hr Administration Protocol 2 MCG/MIN Midazolam HCl 100 mg/ Sodium 100 mls @ 1 mls/hr 03/30/21 15:00 04/02/21 19:40 Chloride IV 4 mg/hr TITR INESSA 4 mls/hr Titration Protocol 1 MG/HR Vasopressin 20 unit/ Sodium 101 mls @ 9.09 mls/hr 03/30/21 20:00 04/02/21 22:39 Chloride IV 0.03 units/min TITR INESSA 9.09 mls/hr Administration 0.03 UNITS/MIN Phenylephrine HCl 100 mg/ 100 mls @ 3 mls/hr 03/31/21 04:00 04/03/21 00:18 Sodium Chloride IV 60 mcg/min TITR INESSA 3.6 mls/hr Titration Protocol 50 MCG/MIN Sodium Chloride 100 mls @ 999 mls/hr 04/01/21 08:19 Nacl 0.9% IV KARLOS PRN Hypotension Sodium Bicarbonate 150 meq/ 1,150 mls @ 75 mls/hr 04/02/21 22:00 04/02/21 22:59 Dextrose IV 75 mls/hr DIRECT INESSA Administration Insulin Human Lispro 0 unit 03/14/21 12:00 04/03/21 06:28 Insulin Lispro 100 Unit/Ml SUB-Q 3 unit Q6HR INESSA Administration Protocol Lorazepam 1 mg 03/13/21 19:40 03/30/21 19:58 Lorazepam 2 Mg/Ml Vial IV 1 mg Q4H PRN Administration Anxiety Methylprednisolone Sodium Succinate 125 mg 04/03/21 06:00 04/03/21 06:28 Methylprednisolone Sod Succinate 125 Mg/2 Ml Inj IV 04/04/21 05:59 125 mg Q8HR INESSA Administration Methylprednisolone Sodium Succinate 80 mg 04/04/21 22:00 Methylprednisolone Sod Succinate 125 Mg/2 Ml Inj IV Q8HR [facility] Midazolam HCl 2 mg 03/30/21 14:19 03/30/21 14:30 Midazolam 2 Mg/2 Ml Inj IV 2 mg Q10MIN PRN Administration Sedation Multi-Ingred Cream/Lotion/Oil/Oint 1 applic 03/14/21 17:50 04/02/21 14:31 Mineral Oil/Petrolatum, White Ophth Oint 3.5 Gm OU 1 applic Q4HR PRN Administration Dry Eye(s) Ondansetron HCl 4 mg 03/13/21 19:30 03/21/21 12:05 Ondansetron 4 Mg/2 Ml Inj IV 4 mg Q8H PRN Administration Nausea And Vomiting Senna/Docusate Sodium 1 tab 03/14/21 22:00 04/02/21 21:53 Sennosides/Docusate Sodium 8.6/50 Mg Tab FEEDTUBE 1 tab BID INESSA Administration Simple Syrup 15 ml 03/15/21 11:42 Simple Syrup 15 Ml FEEDTUBE PRN PRN Hypoglycemia Simple Syrup 30 ml 03/15/21 11:42 Simple Syrup 15 Ml FEEDTUBE PRN PRN Hypoglycemia Sodium Bicarbonate 325 mg 03/15/21 11:42 03/21/21 17:21 Sodium Bicarbonate 325 Mg Tab FEEDTUBE 325 mg PRN PRN Administration For Clogged Feeding Tube Sodium Chloride 10 ml 03/13/21 22:00 04/02/21 21:53 Sodium Chloride 0.9% 10 Ml Flush Syringe IV 10 ml BID INESSA Administration Sodium Chloride 10 ml 03/13/21 19:30 Sodium Chloride 0.9% 10 Ml Flush Syringe IV PRN PRN LINE FLUSH Zinc Sulfate 220 mg 03/14/21 22:00 04/02/21 21:55 Zinc Sulfate 220 Mg Cap PO 220 mg BID INESSA Administration Nutrition/Malnutrition Assess - Dietary Evaluation Nutrition/Malnutrition Findings: Nutrition Notes Start: 03/15/21 11:06 Freq: Status: Active Protocol: Document 04/02/21 15:08 REJI (Rec: 04/02/21 15:19 [facility] [id number]) Nutrition Notes Initial or Follow up Reassessment Current Diagnosis Acute Kidney Injury, Hypertension,Respiratory Failure Other Pertinent Diagnosis COVID-19 pneu, periorbital edema Current Diet TF - Nepro at 44ml/hr Labs/Tests Na 132 K 5.3 BUN 80 Cr 6.8 BG 174 Triglycerides 579 Pertinent Medications Propofol at 32.985ml/hr ( provides 871 kcal), Human Albumin, Solumedrol, Levophed gtt, Phenylephrine gtt, Vasopressin gtt, Kionex Height 5 ft 5 in Weight 137.438 kg [place] Body Weight (kg) 56.81 BMI 50.4 Weight Status Morbidly Obese Subjective/Other Information Spoke with pt's RN via phone at 15:06. Pt tolerating TF at goal rate, despite being on three pressors. Per RN, been able to decrease pressor concentration. Pt been spiking a fever for past few days; Artic sun blanket in place to lower body temperature. Pt remains on vent support. Percent of energy/protein needs met: 99% energy 73% pro Burn Absent Trauma Absent Minimum of two criteria No #1 Nutrition Diagnosis Swallowing difficulty Diagnosis Progress(for reassessment Continues documentation) Is patient on ventilator? Yes Is Patient Ambulatory and/or Out of Bed No REE-([facility]-confined to bed) 2515.536 Kcal/Kg value to use for calculation 14 Approximate Energy Requirements Using 1924 kcal/Kg Calculation Used for Recommendations Kcal/kg Additional Notes Pro needs >1.2g/kg adjBW: > 117g/day Fluid needs 1-1.5L/day Nutrition Intervention Nutrition Support: Continue Nepro at 44ml/hr. Provide 120ml water flush q4h Kcal 1,901 Protein (gm) 86 Carbohydrates (gm) 170 Fat (gm) 101 Fluid (mL) 768 Fiber (gm) 13 Goal #1 TF tolerance Goal #2 TF to meet at least 75% energy and pro needs Follow-Up By: 04/09/21 Additional Comments F/U: stable TF, vent status, wt, propofol, pressor support, rectal tube
[2021-03-31 16:59] LABS: Heparin-Induced Platelet Antib Negative (Negative); Unfractionated Heparin TNR (())
[2021-03-31 21:12] LABS: ABG Base Excess -7.3 mmol/L (-2.0-3.0); ABG HCO3 20.1 mmol/L (20.0-26.0); ABG Methemoglobin 0.4 % (0.0-1.5); ABG Oxygen Saturation 97.6 % (95.0-99.0); ABG PCO2 50.8 mm Hg; ABG PH 7.216 pH Units (7.350-7.450); ABG PO2 113.9 mm Hg (80.0-90.0)
[2021-04-01] MEDS: VASOPRESSIN 20 UNIT in SODIUM CHLORIDE 0.9% 100 ML IV SCH ×3 (00:12→23:57)
[2021-04-01] MEDS: FAMOTIDINE 10 MG TAB PO SCH ×3 (00:29→21:11)
[2021-04-01] MEDS: SENNOSIDES/DOCUSATE SODIUM 8.6/50 MG TAB FEEDTUBE SCH ×3 (00:29→21:13)
[2021-04-01] MEDS: ASCORBIC ACID 500 MG TAB PO SCH ×3 (00:29→21:10)
[2021-04-01] MEDS: INSULIN LISPRO 100 UNIT/ML SUB-Q SCH ×4 (00:30→18:05)
[2021-04-01] MEDS: ZINC SULFATE 220 MG CAP PO SCH ×3 (00:30→21:10)
[2021-04-01] MEDS: APIXABAN 2.5 MG TAB PO SCH ×3 (00:30→21:10)
[2021-04-01] MEDS: IPRATROPIUM/ALBUTEROL SULFATE 3 ML AMPUL.NEB IH SCH ×4 (01:50→20:45)
[2021-04-01] MEDS: fentaNYL DRIP Premix 2,000 MCG/100 ML BAG IV SCH ×6 (02:21→22:18)
[2021-04-01] MEDS: NORepinephrine/NS 8 MG-250 ML 8 MG/250 ML INFUS..BTL IV SCH ×3 (05:13→20:50)
[2021-04-01 06:24] LABS: Hemoglobin 8.4 gm/dl (10.1-14.3); Mean Corpuscular HGB Conc 32 % (30-34); Mean Corpuscular Volume 85 fl (79-97); Platelet Count 184 K/mm3 (140-440); Red Blood Count 3.08 M/mm3 (3.65-5.03); Red Cell Distribution Width 18.5 % (13.2-15.2)
[2021-04-01 06:50] LABS: Albumin 2.4 g/dL (3.9-5); Calcium 8.3 mg/dL (8.4-10.2)
[2021-04-01] MEDS ORDERED: INSULIN REGULAR, HUMAN 100 UNITS/1 ML IV SCH (08:00)
[2021-04-01] MEDS ORDERED: SODIUM POLYSTYRENE 15 GM/60 ML ORAL LIQD PO SCH (08:00)
[2021-04-01] MEDS ORDERED: CALCIUM GLUCONATE 1,000 MG in SODIUM CHLORIDE 0.9% 100 ML IV SCH (08:00)
[2021-04-01] MEDS ORDERED: DEXTROSE 50% IN WATER (25GM) 50 ML SYRINGE IV SCH (08:00)
[2021-04-01] MEDS ORDERED: ALBUMIN HUMAN 25% (25 GM/100 ML) INJ IV PRN (08:19)
[2021-04-01] MEDS ORDERED: SODIUM CHLORIDE 0.9% 100 ML IV PRN (08:19)
[2021-04-01 08:52] LABS: ABG Base Excess -7.6 mmol/L (-2.0-3.0); ABG HCO3 20.2 mmol/L (20.0-26.0); ABG PH 7.225 pH Units (7.350-7.450); ABG PO2 76.4 mm Hg (80.0-90.0)
[2021-04-01 09:10] LABS: ABG Methemoglobin 0.6 % (0.0-1.5); ABG Oxygen Saturation 92.2 % (95.0-99.0)
[2021-04-01] MEDS: methylPREDNISolone Sod Suc 1,000 MG in SODIUM CHLORIDE 0.9% 250ML 250 ML IV SCH (09:29)
--- NOTE | 2021-04-01 09:59 | Progress Note ---
Subjective Date of service: 04/01/21 Principal diagnosis: Ac hypoxemic resp failure; AE-Asthma; SAI; Crohn's; COVID- 19; Pneumonia Interval history: #Acute kidney injury: dialysis dependent attempt hd today if hemodynamics allow will follow up lytes Assess daily for needs for additional sessions as hemodynamics Strict input and output Avoid nephrotoxin Renally dose medications Keep MAP > 65 # Hyperkalemia, treat medically, attempt to controlled with HD #Respiratory failure Covid 19 infection currently intubated UF as tolerated with HD, limited by hemodynamic instability #Hyperphosphatemia to be monitored Dialysis has been initiated #Hyponatremia #diffuse rash--Hematology plans noted, #Overall prognosis remains guarded Subjective Principal diagnosis: Ac hypoxemic resp failure; AE-Asthma; SAI; Crohn's; COVID- 19; Pneumonia Interval history: Remains intubated. Objective - Exam exam deferred for preservation of PPE Objective - Vital Signs Vital signs: Vital Signs - 12hr 03/31/21 03/31/21 03/31/21 22:00 22:15 22:30 Temperature Pulse Rate 91 H 88 88 Pulse Rate [ Anterior Bilateral Throughout] Pulse Rate [ Throughout] Respiratory 30 H 30 H 27 H Rate Respiratory Rate [Anterior Bilateral Throughout] Respiratory Rate [ Throughout] Blood Pressure 112/69 128/67 120/66 O2 Sat by Pulse 97 94 95 Oximetry 03/31/21 03/31/21 03/31/21 22:45 23:00 23:01 Temperature 97.1 F L Pulse Rate 87 86 Pulse Rate [ Anterior Bilateral Throughout] Pulse Rate [ Throughout] Respiratory 30 H 28 H Rate Respiratory Rate [Anterior Bilateral Throughout] Respiratory Rate [ Throughout] Blood Pressure 120/49 111/52 O2 Sat by Pulse 96 96 Oximetry 03/31/21 03/31/21 03/31/21 23:15 23:27 23:30 Temperature Pulse Rate 87 85 86 Pulse Rate [ Anterior Bilateral Throughout] Pulse Rate [ Throughout] Respiratory 29 H 26 H 26 H Rate Respiratory Rate [Anterior Bilateral Throughout] Respiratory Rate [ Throughout] Blood Pressure 127/71 127/71 119/55 O2 Sat by Pulse 96 97 Oximetry 03/31/21 04/01/21 04/01/21 23:45 00:00 00:15 Temperature 97.5 F L Pulse Rate 86 88 88 Pulse Rate [ Anterior Bilateral Throughout] Pulse Rate [ Throughout] Respiratory 25 H 26 H 26 H Rate Respiratory Rate [Anterior Bilateral Throughout] Respiratory Rate [ Throughout] Blood Pressure 124/65 116/59 124/51 O2 Sat by Pulse 94 92 95 Oximetry 04/01/21 04/01/21 04/01/21 00:25 00:31 00:45 Temperature Pulse Rate 91 H 85 91 H Pulse Rate [ Anterior Bilateral Throughout] Pulse Rate [ Throughout] Respiratory 18 31 H Rate Respiratory Rate [Anterior Bilateral Throughout] Respiratory Rate [ Throughout] Blood Pressure 111/52 124/52 O2 Sat by Pulse 95 93 96 Oximetry 04/01/21 04/01/21 04/01/21 01:00 01:15 01:30 Temperature Pulse Rate 90 90 89 Pulse Rate [ Anterior Bilateral Throughout] Pulse Rate [ Throughout] Respiratory 30 H 28 H 26 H Rate Respiratory Rate [Anterior Bilateral Throughout] Respiratory Rate [ Throughout] Blood Pressure 120/60 103/60 103/59 O2 Sat by Pulse 97 95 95 Oximetry 04/01/21 04/01/21 04/01/21 01:45 01:50 02:00 Temperature Pulse Rate 92 H 91 H Pulse Rate [ Anterior Bilateral Throughout] Pulse Rate [ 90 90 Throughout] Respiratory 28 H 26 H Rate Respiratory Rate [Anterior Bilateral Throughout] Respiratory 29 H 34 H Rate [ Throughout] Blood Pressure 91/49 96/57 O2 Sat by Pulse 98 97 Oximetry 04/01/21 04/01/21 04/01/21 02:15 02:30 02:45 Temperature Pulse Rate 89 90 90 Pulse Rate [ Anterior Bilateral Throughout] Pulse Rate [ Throughout] Respiratory 24 29 H 26 H Rate Respiratory Rate [Anterior Bilateral Throughout] Respiratory Rate [ Throughout] Blood Pressure 121/49 111/43 110/43 O2 Sat by Pulse 98 97 95 Oximetry 04/01/21 04/01/21 04/01/21 03:00 03:15 03:30 Temperature Pulse Rate 91 H 92 H 92 H Pulse Rate [ Anterior Bilateral Throughout] Pulse Rate [ Throughout] Respiratory 28 H 29 H 30 H Rate Respiratory Rate [Anterior Bilateral Throughout] Respiratory Rate [ Throughout] Blood Pressure 118/33 106/45 108/40 O2 Sat by Pulse 96 94 99 Oximetry 04/01/21 04/01/21 04/01/21 03:45 04:00 04:15 Temperature 98.6 F Pulse Rate 89 86 90 Pulse Rate [ Anterior Bilateral Throughout] Pulse Rate [ Throughout] Respiratory 28 H 28 H 28 H Rate Respiratory Rate [Anterior Bilateral Throughout] Respiratory Rate [ Throughout] Blood Pressure 96/34 84/33 84/33 O2 Sat by Pulse 98 96 Oximetry 04/01/21 04/01/21 04/01/21 04:31 04:45 05:00 Temperature Pulse Rate 96 H 93 H 94 H Pulse Rate [ Anterior Bilateral Throughout] Pulse Rate [ Throughout] Respiratory 30 H 26 H 30 H Rate Respiratory Rate [Anterior Bilateral Throughout] Respiratory Rate [ Throughout] Blood Pressure 120/68 123/52 119/62 O2 Sat by Pulse 96 96 Oximetry 04/01/21 04/01/21 04/01/21 05:15 05:31 05:45 Temperature Pulse Rate 94 H 91 H 93 H Pulse Rate [ Anterior Bilateral Throughout] Pulse Rate [ Throughout] Respiratory 30 H 29 H 31 H Rate Respiratory Rate [Anterior Bilateral Throughout] Respiratory Rate [ Throughout] Blood Pressure 126/62 129/60 117/58 O2 Sat by Pulse 96 97 96 Oximetry 04/01/21 04/01/21 04/01/21 06:00 06:15 06:30 Temperature Pulse Rate 93 H 93 H 97 H Pulse Rate [ Anterior Bilateral Throughout] Pulse Rate [ Throughout] Respiratory 30 H 29 H 28 H Rate Respiratory Rate [Anterior Bilateral Throughout] Respiratory Rate [ Throughout] Blood Pressure 111/55 109/54 113/57 O2 Sat by Pulse 97 95 98 Oximetry 04/01/21 04/01/21 04/01/21 06:45 07:00 07:15 Temperature Pulse Rate 95 H 95 H 97 H Pulse Rate [ Anterior Bilateral Throughout] Pulse Rate [ Throughout] Respiratory 30 H 29 H 28 H Rate Respiratory Rate [Anterior Bilateral Throughout] Respiratory Rate [ Throughout] Blood Pressure 106/49 101/51 104/57 O2 Sat by Pulse 96 97 98 Oximetry 04/01/21 04/01/21 04/01/21 07:30 07:45 08:00 Temperature 99.0 F Pulse Rate 96 H 98 H 97 H Pulse Rate [ Anterior Bilateral Throughout] Pulse Rate [ Throughout] Respiratory 30 H 30 H 32 H Rate Respiratory Rate [Anterior Bilateral Throughout] Respiratory Rate [ Throughout] Blood Pressure 114/63 113/53 108/54 O2 Sat by Pulse 97 97 98 Oximetry 04/01/21 04/01/21 04/01/21 08:01 08:13 08:15 Temperature 37.8 F L Pulse Rate 103 H Pulse Rate [ 103 H Anterior Bilateral Throughout] Pulse Rate [ 103 H Throughout] Respiratory 38 H Rate Respiratory 35 H Rate [Anterior Bilateral Throughout] Respiratory 35 H Rate [ Throughout] Blood Pressure 108/57 O2 Sat by Pulse 96 Oximetry 04/01/21 08:30 Temperature Pulse Rate 109 H Pulse Rate [ Anterior Bilateral Throughout] Pulse Rate [ Throughout] Respiratory 30 H Rate Respiratory Rate [Anterior Bilateral Throughout] Respiratory Rate [ Throughout] Blood Pressure 125/68 O2 Sat by Pulse 96 Oximetry - Lab 04/01/21 Unknown 04/01/21 Unknown Most recent lab results ABG pH 7.225 pH Units (7.350-7.450) L 04/01/21 08:25 ABG pCO2 50.0 mm Hg 04/01/21 08:25 ABG pO2 76.4 mm Hg (80.0-90.0) L 04/01/21 08:25 ABG HCO3 20.2 mmol/L (20.0-26.0) 04/01/21 08:25 ABG O2 Saturation 92.2 % (95.0-99.0) L 04/01/21 08:25 Calcium 8.3 mg/dL (8.4-10.2) L 04/01/21 Unknown Phosphorus 8.20 mg/dL (2.5-4.5) H D 03/31/21 05:20 Magnesium 1.90 mg/dL (1.7-2.3) 03/31/21 05:20 Urine Creatinine 40.1 mg/dL (0.1-20.0) H 03/14/21 17:50 Urine Sodium 124 mmol/L 03/14/21 17:50 Medications & Allergies - Medications Allergies/Adverse Reactions: Allergies oxycodone HCl [From Percocet] Allergy (Severe, Verified 03/30/21 14:01) Swelling hydrocodone bitartrate [From Vicodin] Allergy (Verified 03/31/21 08:20) Swelling ALLERGY TO TYLENOL VS OXYCODONE ACTIVE ORDER REMOVED FROM [facility] SINCE UNABLE TO CONFIRM WITH FAMILY Home Medications: Home Medications Medication Instructions Recorded Confirmed Last Taken Type Chlorhexidine Mouthwash [Peridex] 15 ml MM BID #1 bottle 10/11/20 03/13/21 Unknown Rx Clindamycin [Clindamycin CAP] 300 mg PO Q8H #21 cap 10/11/20 03/13/21 Unknown Rx Naproxen 500 mg PO Q12H PRN #12 tablet 10/11/20 03/13/21 Unknown Rx Butalb/Acetamin/Caff 50-325-40 1 - 2 tab PO Q6HR PRN #15 tab 12/05/20 03/13/21 Unknown Rx [Fioricet 50-325-40] Famotidine [Pepcid] 20 mg PO BID #30 tablet 12/05/20 03/13/21 Unknown Rx Ketorolac [Toradol] 10 mg PO Q8H PRN #20 tablet 12/05/20 03/13/21 Unknown Rx Ondansetron [Zofran Odt] 4 mg PO Q6HR PRN #20 tab.rapdis 12/05/20 03/13/21 Unknown Rx Albuterol Sulfate [Proair 90 mcg IH Q4HR PRN #2 [email or web address] 01/01/21 03/13/21 Unknown Rx Respiclick] Mupirocin [Bactroban 2% OINT] 1 applic TP BID 7 Days #1 tube 01/01/21 03/13/21 Unknown Rx Triamcinolone Aceton 0.1% (Nf) 1 applic TP BID 14 Days #1 tube 01/01/21 03/13/21 Unknown Rx [Kenalog (NF)] predniSONE [Deltasone] 40 mg PO QDAY #8 tab 01/01/21 03/13/21 Unknown Rx Active Medications: Generic Name Dose Route Start Last Admin Trade Name Freq PRN Reason Stop Dose Admin Acetaminophen 650 mg 03/31/21 12:41 Acetaminophen 325 Mg/10.15 Ml Oral Liqd Unit Dose FEEDTUBE Q6H PRN TEMP >/=100.4 Albumin Human 25 gm 04/01/21 08:19 Albumin Human 25% (25 Gm/100 Ml) Inj IV KARLOS PRN Hypotension Albuterol 2.5 mg 03/19/21 00:53 Albuterol 2.5 Mg/3 Ml Nebu IH Q4HRT PRN Shortness Of Breath Albuterol/Ipratropium 1 ampul 03/19/21 08:00 04/01/21 08:12 Ipratropium/Albuterol Sulfate 3 Ml Ampul.Neb IH 1 ampul Q6HRT INESSA Administration Lipase/Protease/Amylase 1 each 03/15/21 11:42 Lipase 10,500/Protease 25,000/Amylase 43,750 (Units) Dr White FEEDTUBE PRN PRN For Clogged Feeding Tube Apixaban 2.5 mg 03/29/21 13:00 04/01/21 09:29 Apixaban 2.5 Mg Tab PO 2.5 mg Q12HR INESSA Administration Protocol Ascorbic Acid 500 mg 03/14/21 22:00 04/01/21 09:29 Ascorbic Acid 500 Mg Tab PO 500 mg BID INESSA Administration Dextrose 50 ml 03/14/21 11:02 03/15/21 11:40 Dextrose 50% In Water (25gm) 50 Ml Syringe IV 50 ml Q30MIN PRN Administration Hypoglycemia Protocol Dextrose 50 ml 04/01/21 08:00 04/01/21 08:24 Dextrose 50% In Water (25gm) 50 Ml Syringe IV 04/01/21 10:00 50 ml ONCE@0800 INESSA Administration Famotidine 10 mg 03/17/21 22:00 04/01/21 09:29 Famotidine 10 Mg Tab PO 10 mg BID INESSA Administration Fentanyl 50 mcg 03/15/21 10:43 03/28/21 09:25 Fentanyl 100 Mcg/2 Ml Inj IV 50 mcg Q10MIN PRN Administration ANALGESIA Hydrophilic Ointment 1 applic 03/14/21 17:50 Lip Therapy Vaseline TP Q2HR PRN Dry Lips Propofol 1,000 mg in 100 mls @ 4.123 mls/hr 03/15/21 11:00 04/01/21 05:15 Diprivan 10 Mg/Ml IV 30 mcg/kg/min TITR INESSA 24.739 mls/hr Titration Protocol 5 MCG/KG/MIN Fentanyl Citrate 2,000 mcg in 100 mls @ 6.872 mls/hr 03/15/21 11:00 04/01/21 09:30 Fentanyl Drip Premix IV 4 mcg/kg/hr TITR INESSA 27.488 mls/hr Administration Protocol 1 MCG/KG/HR Sodium Chloride 500 mls @ 1 mls/hr 03/16/21 17:19 Nacl 0.9% 500 Ml IV DIRECT PRN ARTERIAL LINE FLUSH NORepinephrine/NS 8 MG-250 ML 8 mg in 250 mls @ 3.75 mls/hr 03/23/21 11:00 04/01/21 08:49 Norepinephrine/Ns 8 Mg-250 Ml (Double Conc) IV 14 mcg/min TITRATE INESSA 26.25 mls/hr Titration Protocol 2 MCG/MIN Midazolam HCl 100 mg/ Sodium 100 mls @ 1 mls/hr 03/30/21 15:00 04/01/21 08:51 Chloride IV Infused TITR INESSA Titration Protocol 1 MG/HR Vasopressin 20 unit/ Sodium 101 mls @ 9.09 mls/hr 03/30/21 20:00 04/01/21 00:12 Chloride IV 0.03 units/min TITR INESSA 9.09 mls/hr Administration 0.03 UNITS/MIN Phenylephrine HCl 100 mg/ 100 mls @ 3 mls/hr 03/31/21 04:00 04/01/21 08:48 Sodium Chloride IV 80 mcg/min TITR INESSA 4.8 mls/hr Titration Protocol 50 MCG/MIN Methylprednisolone Sodium 250 mls @ 250 mls/hr 03/31/21 09:00 04/01/21 09:29 Succinate 1,000 mg/ Sodium IV 04/02/21 09:59 250 mls/hr Chloride Q24H INESSA Administration Calcium Gluconate 1,000 mg/ 110 mls @ 660 mls/hr 04/01/21 08:00 04/01/21 08:27 Sodium Chloride IV 04/01/21 10:00 660 mls/hr ONCE@0800 INESSA Administration Sodium Chloride 100 mls @ 999 mls/hr 04/01/21 08:19 Nacl 0.9% IV KARLOS PRN Hypotension Insulin Human Lispro 0 unit 03/14/21 12:00 04/01/21 05:23 Insulin Lispro 100 Unit/Ml SUB-Q 2 unit Q6HR INESSA Administration Protocol Insulin Human Regular 5 units 04/01/21 08:00 04/01/21 08:23 Insulin Regular, Human 100 Units/1 Ml IV 04/01/21 10:00 5 units ONCE@0800 INESSA Administration Lorazepam 1 mg 03/13/21 19:40 03/30/21 19:58 Lorazepam 2 Mg/Ml Vial IV 1 mg Q4H PRN Administration Anxiety Midazolam HCl 2 mg 03/30/21 14:19 03/30/21 14:30 Midazolam 2 Mg/2 Ml Inj IV 2 mg Q10MIN PRN Administration Sedation Multi-Ingred Cream/Lotion/Oil/Oint 1 applic 03/14/21 17:50 03/30/21 09:43 Mineral Oil/Petrolatum, White Ophth Oint 3.5 Gm OU 1 applic Q4HR PRN Administration Dry Eye(s) Ondansetron HCl 4 mg 03/13/21 19:30 03/21/21 12:05 Ondansetron 4 Mg/2 Ml Inj IV 4 mg Q8H PRN Administration Nausea And Vomiting Senna/Docusate Sodium 1 tab 03/14/21 22:00 04/01/21 00:29 Sennosides/Docusate Sodium 8.6/50 Mg Tab FEEDTUBE 1 tab BID INESSA Administration Simple Syrup 15 ml 03/15/21 11:42 Simple Syrup 15 Ml FEEDTUBE PRN PRN Hypoglycemia Simple Syrup 30 ml 03/15/21 11:42 Simple Syrup 15 Ml FEEDTUBE PRN PRN Hypoglycemia Sodium Bicarbonate 325 mg 03/15/21 11:42 03/21/21 17:21 Sodium Bicarbonate 325 Mg Tab FEEDTUBE 325 mg PRN PRN Administration For Clogged Feeding Tube Sodium Chloride 10 ml 03/13/21 22:00 04/01/21 00:32 Sodium Chloride 0.9% 10 Ml Flush Syringe IV 10 ml BID INESSA Administration Sodium Chloride 10 ml 03/13/21 19:30 Sodium Chloride 0.9% 10 Ml Flush Syringe IV PRN PRN LINE FLUSH Sodium Polystyrene Sulfonate 60 gm 04/01/21 08:00 04/01/21 08:23 Sodium Polystyrene 15 Gm/60 Ml Oral Liqd PO 04/01/21 10:00 60 gm ONCE@0800 INESSA Administration Zinc Sulfate 220 mg 03/14/21 22:00 04/01/21 09:30 Zinc Sulfate 220 Mg Cap PO 220 mg BID INESSA Administration
--- NOTE | 2021-04-01 10:46 | Hem/Onc Progress Note ---
Subjective Date of service: 04/01/21 Interval history: Heme progress note cpt: [id number] Dx: thrombocytopenia This is a 31yo female with past medical h/o asthma with prior intubation in 2019, morbid obesity, and Crohns disease Presented to the ER on 03/13/21 with c/o severe wheezing, shortness of breath with no relief by home nebulizer treatments Covid positive Now on HD Found to have low plt count 80s-100s noted to have generalized petechiae, purpura rash, possible punch biopsy On vent now DATA REVIEWED BELOW Plts 184 Hct 26 AST 236 ALT 93 Creat 9.3 LDH 500 Retic 4.52% IMP: Thrombocytopenia secondary to covid infection or medication Hit negative this could be Hemolytic uremic syndrome "secondary to covid infection" (this is not TTP) ARF requiring HD REC/PLAN: Transfuse 1 unit rbc whenever hct<23 Planning plasma exchange for possible HUS (this is not TTP) Continue steroids due to generalized rash discussed with Shanna GARCÍA and with [facility] nurse Kylie Laboratory Last Values WBC 27.2 K/mm3 (4.5-11.0) H 04/01/21 Unknown Hgb 8.4 gm/dl (10.1-14.3) L 04/01/21 Unknown Hct 26.0 % (30.3-42.9) L 04/01/21 Unknown Plt Count 184 K/mm3 (140-440) 04/01/21 Unknown Percent Retic 4.52 % (0.78-2.58) H 03/31/21 09:49 PT 16.5 Sec. (12.2-14.9) H 03/31/21 09:55 INR 1.20 (0.87-1.13) H 03/31/21 09:55 APTT 26.8 Sec. (24.2-36.6) 03/22/21 13:40 Fibrinogen 491 mg/dl (211-480) H 03/31/21 09:55 D-Dimer 2607.12 ng/mlDDU (0-234) H 03/30/21 04:00 Heparin Anti-Xa, Unfract TNR 03/22/21 08:20 Creatinine 9.3 mg/dL (0.6-1.2) H 04/01/21 Unknown Estimated GFR 6 ml/min 04/01/21 Unknown BUN/Creatinine Ratio 11 % 04/01/21 Unknown AST 236 units/L (5-40) H 04/01/21 Unknown ALT 93 units/L (7-56) H 04/01/21 Unknown Alkaline Phosphatase 191 units/L (35-129) H 04/01/21 Unknown Lactate Dehydrogenase 509 units/L (91-180) H 03/31/21 09:55 C-Reactive Protein 21.50 mg/dL (0.00-1.30) H 03/30/21 04:00 Heparin-induced Plt Ab Negative (Negative) 03/22/21 08:20 UF Heparin High Dose TNR 03/22/21 08:20 JUAN UFH Low Dose 0.1 TNR 03/22/21 08:20 JUAN UFH Low Dose 0.5 TNR 03/22/21 08:20 Coronavirus (PCR) Positive (Negative) A 03/14/21 Unknown Hepatitis A IgM Ab Non-reactive (NonReactive) 03/15/21 05:09 Hep Bs Antigen Nonreactive (Negative) 03/15/21 05:09 Hep B Core IgM Ab Non-reactive (NonReactive) 03/15/21 05:09 Hepatitis C Antibody Non-reactive (NonReactive) 03/15/21 05:09 Schistocytes Smear None seen 03/31/21 12:11 Blood Type O POSITIVE 03/25/21 13:45 Antibody Screen Negative 03/25/21 13:45 Direct Antiglob Test Negative 03/31/21 23:18 NIKOLE, Poly Interpret Negative 03/31/21 23:18 Crossmatch See Detail 03/25/21 13:45 Objective - Constitutional Vitals: Last Vital Signs Temp 37.8 F L 04/01/21 08:01 Pulse 111 H 04/01/21 10:15 Resp 24 04/01/21 10:15 BP 104/56 04/01/21 10:15 Pulse Ox 96 04/01/21 10:15 - Labs Lab Results: Laboratory Results - last 24 hr 03/22/21 03/30/21 03/31/21 08:20 09:44 09:44 WBC RBC Hgb Hct MCV MCH MCHC RDW Plt Count Percent Retic Fibrinogen Heparin Anti-Xa, Unfract TNR ABG pH TNR 7.247 L ABG pCO2 TNR 51.7 ABG pO2 TNR 82.4 ABG HCO3 TNR 22.0 ABG O2 Saturation TNR 94.4 L ABG O2 Content TNR 10.7 ABG Base Excess TNR -5.1 L ABG Hemoglobin TNR 8.2 L ABG Carboxyhemoglobin TNR 1.6 ABG Methemoglobin TNR 0.6 Oxyhemoglobin TNR 92.4 L FiO2 TNR 50 Sodium Potassium Chloride Carbon Dioxide Anion Gap BUN Creatinine Estimated GFR BUN/Creatinine Ratio Glucose POC Glucose Calcium Total Bilirubin AST ALT Alkaline Phosphatase Total Protein Albumin Albumin/Globulin Ratio Heparin-induced Plt Ab Negative UF Heparin High Dose TNR JUAN UFH Low Dose 0.1 TNR JUAN UFH Low Dose 0.5 TNR Schistocytes Smear Direct Antiglob Test NIKOLE, Poly Interpret 03/31/21 03/31/21 03/31/21 09:49 09:55 11:25 WBC RBC Hgb Hct MCV MCH MCHC RDW Plt Count Percent Retic 4.52 H Fibrinogen 491 H Heparin Anti-Xa, Unfract ABG pH ABG pCO2 ABG pO2 ABG HCO3 ABG O2 Saturation ABG O2 Content ABG Base Excess ABG Hemoglobin ABG Carboxyhemoglobin ABG Methemoglobin Oxyhemoglobin FiO2 Sodium Potassium Chloride Carbon Dioxide Anion Gap BUN Creatinine Estimated GFR BUN/Creatinine Ratio Glucose POC Glucose 178 H Calcium Total Bilirubin AST ALT Alkaline Phosphatase Total Protein Albumin Albumin/Globulin Ratio Heparin-induced Plt Ab UF Heparin High Dose JUAN UFH Low Dose 0.1 JUAN UFH Low Dose 0.5 Schistocytes Smear Direct Antiglob Test NIKOLE, Poly Interpret 03/31/21 03/31/21 03/31/21 12:11 12:30 17:40 WBC RBC Hgb Hct MCV MCH MCHC RDW Plt Count Percent Retic Fibrinogen Heparin Anti-Xa, Unfract ABG pH 7.235 L ABG pCO2 52.6 ABG pO2 76.8 L ABG HCO3 21.8 ABG O2 Saturation 93.2 L ABG O2 Content 8.2 ABG Base Excess -5.3 L ABG Hemoglobin 6.3 L ABG Carboxyhemoglobin 1.6 ABG Methemoglobin 0.7 Oxyhemoglobin 91.1 L FiO2 70 Sodium Potassium Chloride Carbon Dioxide Anion Gap BUN Creatinine Estimated GFR BUN/Creatinine Ratio Glucose POC Glucose 245 H Calcium Total Bilirubin AST ALT Alkaline Phosphatase Total Protein Albumin Albumin/Globulin Ratio Heparin-induced Plt Ab UF Heparin High Dose JUAN UFH Low Dose 0.1 JUAN UFH Low Dose 0.5 Schistocytes Smear None seen Direct Antiglob Test NIKOLE, Poly Interpret 03/31/21 03/31/21 04/01/21 21:00 23:18 00:11 WBC RBC Hgb Hct MCV MCH MCHC RDW Plt Count Percent Retic Fibrinogen Heparin Anti-Xa, Unfract ABG pH 7.216 L ABG pCO2 50.8 ABG pO2 113.9 H ABG HCO3 20.1 ABG O2 Saturation 97.6 ABG O2 Content 11.0 ABG Base Excess -7.3 L ABG Hemoglobin 8.0 L ABG Carboxyhemoglobin 1.7 ABG Methemoglobin 0.4 Oxyhemoglobin 95.6 FiO2 65 Sodium Potassium Chloride Carbon Dioxide Anion Gap BUN Creatinine Estimated GFR BUN/Creatinine Ratio Glucose POC Glucose 209 H Calcium Total Bilirubin AST ALT Alkaline Phosphatase Total Protein Albumin Albumin/Globulin Ratio Heparin-induced Plt Ab UF Heparin High Dose JUAN UFH Low Dose 0.1 JUAN UFH Low Dose 0.5 Schistocytes Smear Direct Antiglob Test Negative NIKOLE, Poly Interpret Negative 04/01/21 04/01/21 04/01/21 05:09 08:25 Unknown WBC RBC Hgb Hct MCV MCH MCHC RDW Plt Count Percent Retic Fibrinogen Heparin Anti-Xa, Unfract ABG pH 7.225 L ABG pCO2 50.0 ABG pO2 76.4 L ABG HCO3 20.2 ABG O2 Saturation 92.2 L ABG O2 Content 19.3 ABG Base Excess -7.6 L ABG Hemoglobin 7.3 L ABG Carboxyhemoglobin 1.6 ABG Methemoglobin 0.6 Oxyhemoglobin 90.2 L FiO2 65 Sodium 132 L Potassium 6.6 H* D Chloride 91.3 L Carbon Dioxide 17 L Anion Gap 30 BUN 104 H Creatinine 9.3 H Estimated GFR 6 BUN/Creatinine Ratio 11 Glucose 199 H POC Glucose 173 H Calcium 8.3 L Total Bilirubin 0.40 AST 236 H ALT 93 H Alkaline Phosphatase 191 H Total Protein 6.8 Albumin 2.4 L Albumin/Globulin Ratio 0.5 Heparin-induced Plt Ab UF Heparin High Dose JUAN UFH Low Dose 0.1 JUAN UFH Low Dose 0.5 Schistocytes Smear Direct Antiglob Test NIKOLE, Poly Interpret 04/01/21 Unknown WBC 27.2 H RBC 3.08 L Hgb 8.4 L Hct 26.0 L MCV 85 MCH 27 L MCHC 32 RDW 18.5 H Plt Count 184 Percent Retic Fibrinogen Heparin Anti-Xa, Unfract ABG pH ABG pCO2 ABG pO2 ABG HCO3 ABG O2 Saturation ABG O2 Content ABG Base Excess ABG Hemoglobin ABG Carboxyhemoglobin ABG Methemoglobin Oxyhemoglobin FiO2 Sodium Potassium Chloride Carbon Dioxide Anion Gap BUN Creatinine Estimated GFR BUN/Creatinine Ratio Glucose POC Glucose Calcium Total Bilirubin AST ALT Alkaline Phosphatase Total Protein Albumin Albumin/Globulin Ratio Heparin-induced Plt Ab UF Heparin High Dose JUAN UFH Low Dose 0.1 JUAN UFH Low Dose 0.5 Schistocytes Smear Direct Antiglob Test NIKOLE, Poly Interpret Medications & Allergies - Medications Allergies/Adverse Reactions: Allergies oxycodone HCl [From Percocet] Allergy (Severe, Verified 03/30/21 14:01) Swelling hydrocodone bitartrate [From Vicodin] Allergy (Verified 03/31/21 08:20) Swelling ALLERGY TO TYLENOL VS OXYCODONE ACTIVE ORDER REMOVED FROM JUL SINCE UNABLE TO CONFIRM WITH FAMILY Home Medications: Home Medications Medication Instructions Recorded Confirmed Last Taken Type Chlorhexidine Mouthwash [Peridex] 15 ml MM BID #1 bottle 10/11/20 03/13/21 Unknown Rx Clindamycin [Clindamycin CAP] 300 mg PO Q8H #21 cap 10/11/20 03/13/21 Unknown Rx Naproxen 500 mg PO Q12H PRN #12 tablet 10/11/20 03/13/21 Unknown Rx Butalb/Acetamin/Caff 50-325-40 1 - 2 tab PO Q6HR PRN #15 tab 12/05/20 03/13/21 Unknown Rx [Fioricet 50-325-40] Famotidine [Pepcid] 20 mg PO BID #30 tablet 12/05/20 03/13/21 Unknown Rx Ketorolac [Toradol] 10 mg PO Q8H PRN #20 tablet 12/05/20 03/13/21 Unknown Rx Ondansetron [Zofran Odt] 4 mg PO Q6HR PRN #20 tab.rapdis 12/05/20 03/13/21 Unknown Rx Albuterol Sulfate [Proair 90 mcg IH Q4HR PRN #2 [email or web address] 01/01/21 03/13/21 Unknown Rx Respiclick] Mupirocin [Bactroban 2% OINT] 1 applic TP BID 7 Days #1 tube 01/01/21 03/13/21 Unknown Rx Triamcinolone Aceton 0.1% (Nf) 1 applic TP BID 14 Days #1 tube 01/01/21 03/13/21 Unknown Rx [Kenalog (NF)] predniSONE [Deltasone] 40 mg PO QDAY #8 tab 01/01/21 03/13/21 Unknown Rx Active Medications: Generic Name Dose Route Start Last Admin Trade Name Freq PRN Reason Stop Dose Admin Acetaminophen 650 mg 03/31/21 12:41 Acetaminophen 325 Mg/10.15 Ml Oral Liqd Unit Dose FEEDTUBE Q6H PRN TEMP >/=100.4 Albumin Human 25 gm 04/01/21 08:19 Albumin Human 25% (25 Gm/100 Ml) Inj IV KARLOS PRN Hypotension Albuterol 2.5 mg 03/19/21 00:53 Albuterol 2.5 Mg/3 Ml Nebu IH Q4HRT PRN Shortness Of Breath Albuterol/Ipratropium 1 ampul 03/19/21 08:00 04/01/21 08:12 Ipratropium/Albuterol Sulfate 3 Ml Ampul.Neb IH 1 ampul Q6HRT INESSA Administration Lipase/Protease/Amylase 1 each 03/15/21 11:42 Lipase 10,500/Protease 25,000/Amylase 43,750 (Units) Dr White FEEDTUBE PRN PRN For Clogged Feeding Tube Apixaban 2.5 mg 03/29/21 13:00 04/01/21 09:29 Apixaban 2.5 Mg Tab PO 2.5 mg Q12HR INESSA Administration Protocol Ascorbic Acid 500 mg 03/14/21 22:00 04/01/21 09:29 Ascorbic Acid 500 Mg Tab PO 500 mg BID INESSA Administration Dextrose 50 ml 03/14/21 11:02 03/15/21 11:40 Dextrose 50% In Water (25gm) 50 Ml Syringe IV 50 ml Q30MIN PRN Administration Hypoglycemia Protocol Famotidine 10 mg 03/17/21 22:00 04/01/21 09:29 Famotidine 10 Mg Tab PO 10 mg BID INESSA Administration Fentanyl 50 mcg 03/15/21 10:43 03/28/21 09:25 Fentanyl 100 Mcg/2 Ml Inj IV 50 mcg Q10MIN PRN Administration ANALGESIA Hydrophilic Ointment 1 applic 03/14/21 17:50 Lip Therapy Vaseline TP Q2HR PRN Dry Lips Propofol 1,000 mg in 100 mls @ 4.123 mls/hr 03/15/21 11:00 04/01/21 05:15 Diprivan 10 Mg/Ml IV 30 mcg/kg/min TITR INESSA 24.739 mls/hr Titration Protocol 5 MCG/KG/MIN Fentanyl Citrate 2,000 mcg in 100 mls @ 6.872 mls/hr 03/15/21 11:00 04/01/21 09:30 Fentanyl Drip Premix IV 4 mcg/kg/hr TITR INESSA 27.488 mls/hr Administration Protocol 1 MCG/KG/HR Sodium Chloride 500 mls @ 1 mls/hr 03/16/21 17:19 Nacl 0.9% 500 Ml IV DIRECT PRN ARTERIAL LINE FLUSH NORepinephrine/NS 8 MG-250 ML 8 mg in 250 mls @ 3.75 mls/hr 03/23/21 11:00 04/01/21 08:49 Norepinephrine/Ns 8 Mg-250 Ml (Double Conc) IV 14 mcg/min TITRATE INESSA 26.25 mls/hr Titration Protocol 2 MCG/MIN Midazolam HCl 100 mg/ Sodium 100 mls @ 1 mls/hr 03/30/21 15:00 04/01/21 08:51 Chloride IV Infused TITR INESSA Titration Protocol 1 MG/HR Vasopressin 20 unit/ Sodium 101 mls @ 9.09 mls/hr 03/30/21 20:00 04/01/21 00:12 Chloride IV 0.03 units/min TITR INESSA 9.09 mls/hr Administration 0.03 UNITS/MIN Phenylephrine HCl 100 mg/ 100 mls @ 3 mls/hr 03/31/21 04:00 04/01/21 08:48 Sodium Chloride IV 80 mcg/min TITR INESSA 4.8 mls/hr Titration Protocol 50 MCG/MIN Methylprednisolone Sodium 250 mls @ 250 mls/hr 03/31/21 09:00 04/01/21 09:29 Succinate 1,000 mg/ Sodium IV 04/02/21 09:59 250 mls/hr Chloride Q24H INESSA Administration Sodium Chloride 100 mls @ 999 mls/hr 04/01/21 08:19 Nacl 0.9% IV KARLOS PRN Hypotension Insulin Human Lispro 0 unit 03/14/21 12:00 04/01/21 05:23 Insulin Lispro 100 Unit/Ml SUB-Q 2 unit Q6HR INESSA Administration Protocol Lorazepam 1 mg 03/13/21 19:40 03/30/21 19:58 Lorazepam 2 Mg/Ml Vial IV 1 mg Q4H PRN Administration Anxiety Midazolam HCl 2 mg 03/30/21 14:19 03/30/21 14:30 Midazolam 2 Mg/2 Ml Inj IV 2 mg Q10MIN PRN Administration Sedation Multi-Ingred Cream/Lotion/Oil/Oint 1 applic 03/14/21 17:50 03/30/21 09:43 Mineral Oil/Petrolatum, White Ophth Oint 3.5 Gm OU 1 applic Q4HR PRN Administration Dry Eye(s) Ondansetron HCl 4 mg 03/13/21 19:30 03/21/21 12:05 Ondansetron 4 Mg/2 Ml Inj IV 4 mg Q8H PRN Administration Nausea And Vomiting Senna/Docusate Sodium 1 tab 03/14/21 22:00 04/01/21 00:29 Sennosides/Docusate Sodium 8.6/50 Mg Tab FEEDTUBE 1 tab BID INESSA Administration Simple Syrup 15 ml 03/15/21 11:42 Simple Syrup 15 Ml FEEDTUBE PRN PRN Hypoglycemia Simple Syrup 30 ml 03/15/21 11:42 Simple Syrup 15 Ml FEEDTUBE PRN PRN Hypoglycemia Sodium Bicarbonate 325 mg 03/15/21 11:42 03/21/21 17:21 Sodium Bicarbonate 325 Mg Tab FEEDTUBE 325 mg PRN PRN Administration For Clogged Feeding Tube Sodium Chloride 10 ml 03/13/21 22:00 04/01/21 00:32 Sodium Chloride 0.9% 10 Ml Flush Syringe IV 10 ml BID INESSA Administration Sodium Chloride 10 ml 03/13/21 19:30 Sodium Chloride 0.9% 10 Ml Flush Syringe IV PRN PRN LINE FLUSH Zinc Sulfate 220 mg 03/14/21 22:00 04/01/21 09:30 Zinc Sulfate 220 Mg Cap PO 220 mg BID INESSA Administration
--- NOTE | 2021-04-01 10:50 | Progress Note ---
Assessment and Plan Cultures: SARS CoV2 PCR: Positive 03/13/2021 blood culture: No growth Resp cultures 03/14/2021: MSSA 03/23/2021 blood culture: No growth 03/23/2021 sputum culture: Usual respiratory maury 03/29/2021 blood culture: no growth A/P: 31-year-old female with asthma, morbid obesity, Crohn's disease admitted with cough and shortness of breath: #Septic shock: completed abx. #Bilateral pneumonia: Secondary to COVID-19. Severe disease, then developed MSSA in the lungs. D-dimer very high initially, which has shown improvement. #Acute hypoxic respiratory failure: on the vent. #Diffuse rash: Question of drug reaction, now off Cefepime. #Possible HUS: plasma exchange, high-dose pulse steroids per hematology. #Acute renal failure: progressive. Nephrology following, initiated HD. #Acute asthma exacerbation #Morbid obesity Recs: -s/p Actemra 03/15/2021, completed steroids for COVID -Now on pulse steroids and plasma exchange per hematology -completed Cefepime, avoid further beta-lactams given concern for allergic reaction -poor prognosis Donn Solano MD, FACP, [facility] O: [phone] F: [phone] Subjective Date of service: 04/01/21 Principal diagnosis: Ac hypoxemic resp failure; AE-Asthma; SAI; Crohn's; COVID- 19; Pneumonia Interval history: Remains on the vent. On multiple pressors. Also on high-dose pulse steroids. Objective - Exam Narrative Exam: Physical Exam (reviewed in chart to minimize risk of transmission) Constitutional: deferred Head, Ears, Nose: deferred Eyes: deferred Neck: deferred Oral: deferred Cardiovascular: deferred Respiratory: deferred GI: deferred Musculoskeletal: deferred Skin: deferred Hem/Lymphatic: deferred Psych: deferred Neurological: deferred - Constitutional Vitals: Vital Signs Temp Pulse Resp BP Pulse Ox 37.8 F L 111 H 24 104/56 96 04/01/21 08:01 04/01/21 10:15 04/01/21 10:15 04/01/21 10:15 04/01/21 10:15 Temperature -Last 24 Hours Temperature 37.8 F Temperature 99.0 F Temperature 98.6 F Temperature 97.5 F Temperature 97.1 F Temperature 99.6 F Temperature 99.7 F Temperature 98.4 F Temperature 97.7 F Temperature 97.2 F Temperature 97.3 F Temperature 99.5 F Temperature 100.2 F - Labs CBC & Chem 7: 04/01/21 Unknown 04/01/21 Unknown Labs: Abnormal lab results 03/31/21 03/31/21 03/31/21 Range/Units 09:44 09:49 11:25 WBC (4.5-11.0) K/mm3 RBC (3.65-5.03) M/mm3 Hgb (10.1-14.3) gm/dl Hct (30.3-42.9) % MCH (28-32) pg RDW (13.2-15.2) % Percent Retic 4.52 H (0.78-2.58) % ABG pH 7.247 L (7.350-7.450) pH Units ABG pO2 (80.0-90.0) mm Hg ABG O2 Saturation 94.4 L (95.0-99.0) % ABG Base Excess -5.1 L (-2.0-3.0) mmol/L ABG Hemoglobin 8.2 L (12.0-16.0) gm/dl Oxyhemoglobin 92.4 L (95.0-99.0) % Sodium (137-145) mmol/L Potassium (3.6-5.0) mmol/L Chloride (98-107) mmol/L Carbon Dioxide (22-30) mmol/L BUN (7-17) mg/dL Creatinine (0.6-1.2) mg/dL Glucose (65-100) mg/dL POC Glucose 178 H (70-105) mg/dL Calcium (8.4-10.2) mg/dL AST (5-40) units/L ALT (7-56) units/L Alkaline Phosphatase (35-129) units/L Albumin (3.9-5) g/dL 03/31/21 03/31/21 03/31/21 Range/Units 12:30 17:40 21:00 WBC (4.5-11.0) K/mm3 RBC (3.65-5.03) M/mm3 Hgb (10.1-14.3) gm/dl Hct (30.3-42.9) % MCH (28-32) pg RDW (13.2-15.2) % Percent Retic (0.78-2.58) % ABG pH 7.235 L 7.216 L (7.350-7.450) pH Units ABG pO2 76.8 L 113.9 H (80.0-90.0) mm Hg ABG O2 Saturation 93.2 L (95.0-99.0) % ABG Base Excess -5.3 L -7.3 L (-2.0-3.0) mmol/L ABG Hemoglobin 6.3 L 8.0 L (12.0-16.0) gm/dl Oxyhemoglobin 91.1 L (95.0-99.0) % Sodium (137-145) mmol/L Potassium (3.6-5.0) mmol/L Chloride (98-107) mmol/L Carbon Dioxide (22-30) mmol/L BUN (7-17) mg/dL Creatinine (0.6-1.2) mg/dL Glucose (65-100) mg/dL POC Glucose 245 H (70-105) mg/dL Calcium (8.4-10.2) mg/dL AST (5-40) units/L ALT (7-56) units/L Alkaline Phosphatase (35-129) units/L Albumin (3.9-5) g/dL 04/01/21 04/01/21 04/01/21 Range/Units 00:11 05:09 08:25 WBC (4.5-11.0) K/mm3 RBC (3.65-5.03) M/mm3 Hgb (10.1-14.3) gm/dl Hct (30.3-42.9) % MCH (28-32) pg RDW (13.2-15.2) % Percent Retic (0.78-2.58) % ABG pH 7.225 L (7.350-7.450) pH Units ABG pO2 76.4 L (80.0-90.0) mm Hg ABG O2 Saturation 92.2 L (95.0-99.0) % ABG Base Excess -7.6 L (-2.0-3.0) mmol/L ABG Hemoglobin 7.3 L (12.0-16.0) gm/dl Oxyhemoglobin 90.2 L (95.0-99.0) % Sodium (137-145) mmol/L Potassium (3.6-5.0) mmol/L Chloride (98-107) mmol/L Carbon Dioxide (22-30) mmol/L BUN (7-17) mg/dL Creatinine (0.6-1.2) mg/dL Glucose (65-100) mg/dL POC Glucose 209 H 173 H (70-105) mg/dL Calcium (8.4-10.2) mg/dL AST (5-40) units/L ALT (7-56) units/L Alkaline Phosphatase (35-129) units/L Albumin (3.9-5) g/dL 04/01/21 04/01/21 Range/Units Unknown Unknown WBC 27.2 H (4.5-11.0) K/mm3 RBC 3.08 L (3.65-5.03) M/mm3 Hgb 8.4 L (10.1-14.3) gm/dl Hct 26.0 L (30.3-42.9) % MCH 27 L (28-32) pg RDW 18.5 H (13.2-15.2) % Percent Retic (0.78-2.58) % ABG pH (7.350-7.450) pH Units ABG pO2 (80.0-90.0) mm Hg ABG O2 Saturation (95.0-99.0) % ABG Base Excess (-2.0-3.0) mmol/L ABG Hemoglobin (12.0-16.0) gm/dl Oxyhemoglobin (95.0-99.0) % Sodium 132 L (137-145) mmol/L Potassium 6.6 H* D (3.6-5.0) mmol/L Chloride 91.3 L (98-107) mmol/L Carbon Dioxide 17 L (22-30) mmol/L BUN 104 H (7-17) mg/dL Creatinine 9.3 H (0.6-1.2) mg/dL Glucose 199 H (65-100) mg/dL POC Glucose (70-105) mg/dL Calcium 8.3 L (8.4-10.2) mg/dL AST 236 H (5-40) units/L ALT 93 H (7-56) units/L Alkaline Phosphatase 191 H (35-129) units/L Albumin 2.4 L (3.9-5) g/dL
--- NOTE | 2021-04-01 13:43 | Progress Note ---
Assessment and Plan Acute hypoxemic respiratory failure Acute asthma exacerbation Morbid obesity Crohn's disease Metabolic acidosis Acute kidney injury Coronavirus infection Pneumonia (CAP) Oropharyngeal dysphagia Obesity, if not mentioned above - treated hyperkalemia chemicaly; final correction with dialysis session - repeat ABG at 9pm and address - for plasma exchange - continue cooling blanket - continue PCV with DP of 22 cm H2O - prognosis guarded but ARDS numbers improved overall - continue to wean vasopressors for target MAP > 65 mmHg - continue care as below otherwise; - nephrology input appreciated; HD/UF for toxin and volume clearance - HD/UF sessions per nephrology prescription - continue Daily SAT and SBT assessment as tolerated - continue to wean supplemental oxygen for target O2 sat's > 90% acutely - VAP bundle addressed - continue lung protective strategies - continue bronchodilators with pulmonary hygiene per RT - wean per pulmonary driven protocols otherwise - continue accuchecks with glycemic control per SSI (While critically ill target blood glucose of 140-180 mg/dL; avoid hypoglycemia) - sedation prn for target RASS 0 to -1 - avoid nephrotoxins, renally dose all medications - continue to avoid benzodiazepine's, reduce the possibility of delirium - AB's per ID rec's (Cefepime) - prn analgesia per CPOT score - Maintenance of sleep-wake cycle, avoid delirium - continue enteral nutritional support at goal rate as tolerated - G.I. & VTE prophylaxis - PT/OT/ROM exercises - continue mobility protocols for pressure ulcer prophylaxis - Monitor hemodynamics closely - continue other care per attending / other consultants - discharge planning ongoing concurrently COVID SPECIFIC INTERVENTIONS - Actemra ordered if available - Remdesivir as per ID/Pulmonary developed protocols (not a candidate) - continue systemic steroids for severe COVID-19 infection empirically - follow repeat COVID tests results - zinc and vitamin C supplementation - Monitor inflammatory markers per facility protocol - ferritin, Ddimer, CRP - therapeutic anticoagulation per system Protocol based on d-dimer and clinical considerations (VTE prophylaxis) - Continue contact and airborne isolation .... Re-evaluate in am & prn CONDITION: CRITICAL PROGNOSIS: GUARDED CODE STATUS: FULL CODE The high probability of a clinically significant, sudden or life-threatening d eterioration of the [respiratory, cardiovascular, renal & neurologic] system(s) required my full and direct attention, intervention and personal management. The aggregate critical care time was [33] minutes without overlap. Time includes spent on; [x] Data Review and interpretation [x] Patient assessment and monitoring of vital signs [x] Documentation [x] Medication orders and management Subjective Date of service: 04/01/21 Principal diagnosis: Ac hypoxemic resp failure; AE-Asthma; SAI; Crohn's; COVID- 19; Pneumonia Interval history: Patient is seen today for: Acute hypoxemic respiratory failure; AE-Asthma; SAI; Crohn's disease; COVID-19 infection; Pneumonia (CAP) Seen and examined at bedside; 24hour events reviewed; nursing and respiratory care staff consulted; no adverse overnight events reported to me; resting in bed; remains on MVS; still with ARDS numbers; tentatively for HD/UF and plasmapharesis today; no emesis or overt aspiration; remains on cooling blanket. Objective Vital Signs - 12hr 04/01/21 04/01/21 04/01/21 01:45 01:50 02:00 Temperature Pulse Rate 92 H 91 H Pulse Rate [ Anterior Bilateral Throughout] Pulse Rate [ 90 90 Throughout] Respiratory 28 H 26 H Rate Respiratory Rate [Anterior Bilateral Throughout] Respiratory 29 H 34 H Rate [ Throughout] Blood Pressure 91/49 96/57 O2 Sat by Pulse 98 97 Oximetry 04/01/21 04/01/21 04/01/21 02:15 02:30 02:45 Temperature Pulse Rate 89 90 90 Pulse Rate [ Anterior Bilateral Throughout] Pulse Rate [ Throughout] Respiratory 24 29 H 26 H Rate Respiratory Rate [Anterior Bilateral Throughout] Respiratory Rate [ Throughout] Blood Pressure 121/49 111/43 110/43 O2 Sat by Pulse 98 97 95 Oximetry 04/01/21 04/01/21 04/01/21 03:00 03:15 03:30 Temperature Pulse Rate 91 H 92 H 92 H Pulse Rate [ Anterior Bilateral Throughout] Pulse Rate [ Throughout] Respiratory 28 H 29 H 30 H Rate Respiratory Rate [Anterior Bilateral Throughout] Respiratory Rate [ Throughout] Blood Pressure 118/33 106/45 108/40 O2 Sat by Pulse 96 94 99 Oximetry 04/01/21 04/01/21 04/01/21 03:45 04:00 04:15 Temperature 98.6 F Pulse Rate 89 86 90 Pulse Rate [ Anterior Bilateral Throughout] Pulse Rate [ Throughout] Respiratory 28 H 28 H 28 H Rate Respiratory Rate [Anterior Bilateral Throughout] Respiratory Rate [ Throughout] Blood Pressure 96/34 84/33 84/33 O2 Sat by Pulse 98 96 Oximetry 04/01/21 04/01/21 04/01/21 04:31 04:45 05:00 Temperature Pulse Rate 96 H 93 H 94 H Pulse Rate [ Anterior Bilateral Throughout] Pulse Rate [ Throughout] Respiratory 30 H 26 H 30 H Rate Respiratory Rate [Anterior Bilateral Throughout] Respiratory Rate [ Throughout] Blood Pressure 120/68 123/52 119/62 O2 Sat by Pulse 96 96 Oximetry 04/01/21 04/01/21 04/01/21 05:15 05:31 05:45 Temperature Pulse Rate 94 H 91 H 93 H Pulse Rate [ Anterior Bilateral Throughout] Pulse Rate [ Throughout] Respiratory 30 H 29 H 31 H Rate Respiratory Rate [Anterior Bilateral Throughout] Respiratory Rate [ Throughout] Blood Pressure 126/62 129/60 117/58 O2 Sat by Pulse 96 97 96 Oximetry 04/01/21 04/01/21 04/01/21 06:00 06:15 06:30 Temperature Pulse Rate 93 H 93 H 97 H Pulse Rate [ Anterior Bilateral Throughout] Pulse Rate [ Throughout] Respiratory 30 H 29 H 28 H Rate Respiratory Rate [Anterior Bilateral Throughout] Respiratory Rate [ Throughout] Blood Pressure 111/55 109/54 113/57 O2 Sat by Pulse 97 95 98 Oximetry 04/01/21 04/01/21 04/01/21 06:45 07:00 07:15 Temperature Pulse Rate 95 H 95 H 97 H Pulse Rate [ Anterior Bilateral Throughout] Pulse Rate [ Throughout] Respiratory 30 H 29 H 28 H Rate Respiratory Rate [Anterior Bilateral Throughout] Respiratory Rate [ Throughout] Blood Pressure 106/49 101/51 104/57 O2 Sat by Pulse 96 97 98 Oximetry 04/01/21 04/01/21 04/01/21 07:30 07:45 08:00 Temperature 99.0 F Pulse Rate 96 H 98 H 97 H Pulse Rate [ Anterior Bilateral Throughout] Pulse Rate [ Throughout] Respiratory 30 H 30 H 32 H Rate Respiratory Rate [Anterior Bilateral Throughout] Respiratory Rate [ Throughout] Blood Pressure 114/63 113/53 108/54 O2 Sat by Pulse 97 97 98 Oximetry 04/01/21 04/01/21 04/01/21 08:01 08:13 08:15 Temperature 37.8 F L Pulse Rate 103 H Pulse Rate [ 103 H Anterior Bilateral Throughout] Pulse Rate [ 103 H Throughout] Respiratory 38 H Rate Respiratory 35 H Rate [Anterior Bilateral Throughout] Respiratory 35 H Rate [ Throughout] Blood Pressure 108/57 O2 Sat by Pulse 96 Oximetry 04/01/21 04/01/21 04/01/21 08:30 08:45 09:00 Temperature Pulse Rate 109 H 108 H 108 H Pulse Rate [ Anterior Bilateral Throughout] Pulse Rate [ Throughout] Respiratory 30 H 28 H 28 H Rate Respiratory Rate [Anterior Bilateral Throughout] Respiratory Rate [ Throughout] Blood Pressure 125/68 110/62 105/64 O2 Sat by Pulse 96 96 95 Oximetry 04/01/21 04/01/21 04/01/21 09:15 09:30 09:45 Temperature Pulse Rate 104 H 108 H 106 H Pulse Rate [ Anterior Bilateral Throughout] Pulse Rate [ Throughout] Respiratory 24 27 H 21 Rate Respiratory Rate [Anterior Bilateral Throughout] Respiratory Rate [ Throughout] Blood Pressure 98/62 101/64 108/50 O2 Sat by Pulse 95 96 96 Oximetry 04/01/21 04/01/21 04/01/21 10:00 10:15 10:30 Temperature Pulse Rate 105 H 111 H 109 H Pulse Rate [ Anterior Bilateral Throughout] Pulse Rate [ Throughout] Respiratory 28 H 24 20 Rate Respiratory Rate [Anterior Bilateral Throughout] Respiratory Rate [ Throughout] Blood Pressure 96/48 104/56 102/54 O2 Sat by Pulse 96 96 97 Oximetry 04/01/21 04/01/21 04/01/21 10:45 11:00 11:15 Temperature Pulse Rate 109 H 103 H 102 H Pulse Rate [ Anterior Bilateral Throughout] Pulse Rate [ Throughout] Respiratory 37 H 27 H 27 H Rate Respiratory Rate [Anterior Bilateral Throughout] Respiratory Rate [ Throughout] Blood Pressure 102/54 109/67 85/46 O2 Sat by Pulse 100 98 98 Oximetry 04/01/21 04/01/21 04/01/21 11:31 11:45 12:00 Temperature 37.6 F L Pulse Rate 102 H 101 H 102 H Pulse Rate [ Anterior Bilateral Throughout] Pulse Rate [ Throughout] Respiratory 29 H 32 H Rate Respiratory Rate [Anterior Bilateral Throughout] Respiratory Rate [ Throughout] Blood Pressure 122/59 120/62 O2 Sat by Pulse 99 96 97 Oximetry 04/01/21 12:01 Temperature Pulse Rate 100 H Pulse Rate [ Anterior Bilateral Throughout] Pulse Rate [ Throughout] Respiratory 29 H Rate Respiratory Rate [Anterior Bilateral Throughout] Respiratory Rate [ Throughout] Blood Pressure 107/56 O2 Sat by Pulse 96 Oximetry Constitutional: appears uncomfortable, other (morbidly obese female with mild ventilator dyssynchrony) Eyes: non-icteric, other (scleral erythema / bleeding is improving) ENT: oropharynx moist, other (ETT 25 cm BALJINDER) Neck: supple, no lymphadenopathy, no JVD, other (large circumference) Effort: mildly labored Ascultation: Bilateral: diminished breath sounds, rhonchi Percussion: Bilateral: not dull Cardiovascular: regular rate and rhythm Gastrointestinal: normoactive bowel sounds, soft, non-tender, non-distended (pro tuberant) Integumentary: rash ( ), other Extremities: no cyanosis, pulses normal, no ischemia or petechiae, edema (trace peripheral) Neurologic: non-focal exam (grossly), pupils equal and round, CN II-XII normal, motor strength normal and, other (moves all extremities spontaneously) Psychiatric: other (unasble to assess) CBC and BMP: 04/02/21 04:00 04/02/21 05:00 ABG, PT/INR, D-dimer: ABG ABG pH 7.225 pH Units (7.350-7.450) L 04/01/21 08:25 POC ABG pCO2 47.7 mmHg (32.0-48.0) 03/30/21 23:49 ABG pCO2 50.0 mm Hg 04/01/21 08:25 POC ABG pO2 77.7 mmHg (83-108) L 03/30/21 23:49 ABG pO2 76.4 mm Hg (80.0-90.0) L 04/01/21 08:25 POC ABG HCO3 20.4 03/30/21 23:49 ABG O2 Saturation 92.2 % (95.0-99.0) L 04/01/21 08:25 PT/INR, D-dimer PT 16.5 Sec. (12.2-14.9) H 03/31/21 09:55 INR 1.20 (0.87-1.13) H 03/31/21 09:55 D-Dimer 2607.12 ng/mlDDU (0-234) H 03/30/21 04:00 Abnormal lab findings: Abnormal Labs 03/13/21 03/13/21 03/13/21 13:26 13:26 15:40 WBC RBC Hgb Hct MCH 27 L RDW 17.0 H Plt Count Lymph % (Auto) [place]cl[place] # (Auto) Eos # (Auto) Seg Neutrophils % Seg Neutrophils # Percent Retic PT INR Fibrinogen D-Dimer ABG pH POC ABG pCO2 POC ABG pO2 ABG pO2 ABG HCO3 ABG O2 Saturation ABG Base Excess ABG Hemoglobin ABG Oxyhemoglobin ABG Sodium ABG Potassium ABG Chloride ABG Glucose Oxyhemoglobin Carboxyhemoglobin Sodium 136 L Potassium Chloride Carbon Dioxide BUN Creatinine Glucose 125 H 130 H POC Glucose Hemoglobin A1c Calcium Phosphorus Magnesium AST ALT Alkaline Phosphatase Lactate Dehydrogenase 235 H C-Reactive Protein 4.30 H Total Protein Albumin Triglycerides Arterial Blood Glucose Arterial Blood Ionized Calcium Urine Creatinine Random Vancomycin Coronavirus (PCR) Crossmatch 03/13/21 03/14/21 03/14/21 21:33 03:35 06:21 WBC 20.0 H RBC Hgb Hct MCH 27 L RDW 17.5 H Plt Count Lymph % (Auto) 7.8 L Mcclain # (Auto) 1.3 H Eos # (Auto) Seg Neutrophils % 85.4 H Seg Neutrophils # 17.1 H Percent Retic PT INR Fibrinogen D-Dimer ABG pH 7.323 L 7.234 L POC ABG pCO2 POC ABG pO2 ABG pO2 69.8 L ABG HCO3 ABG O2 Saturation 92.9 L 94.9 L ABG Base Excess -3.3 L -5.4 L ABG Hemoglobin ABG Oxyhemoglobin ABG Sodium ABG Potassium ABG Chloride ABG Glucose Oxyhemoglobin 91.2 L 93.2 L Carboxyhemoglobin Sodium Potassium Chloride Carbon Dioxide BUN Creatinine Glucose POC Glucose Hemoglobin A1c Calcium Phosphorus Magnesium AST ALT Alkaline Phosphatase Lactate Dehydrogenase C-Reactive Protein Total Protein Albumin Triglycerides Arterial Blood Glucose Arterial Blood Ionized Calcium Urine Creatinine Random Vancomycin Coronavirus (PCR) Crossmatch 03/14/21 03/14/21 03/14/21 06:21 07:47 11:21 WBC RBC Hgb Hct MCH RDW Plt Count Lymph % (Auto) [place] # (Auto) Eos # (Auto) Seg Neutrophils % Seg Neutrophils # Percent Retic PT INR Fibrinogen D-Dimer ABG pH POC ABG pCO2 POC ABG pO2 ABG pO2 ABG HCO3 ABG O2 Saturation ABG Base Excess ABG Hemoglobin ABG Oxyhemoglobin ABG Sodium ABG Potassium ABG Chloride ABG Glucose Oxyhemoglobin Carboxyhemoglobin Sodium 136 L 136 L Potassium 6.2 H* D 5.4 H Chloride Carbon Dioxide 21 L 21 L BUN Creatinine 1.5 H D 1.8 H Glucose 144 H 141 H POC Glucose 147 H Hemoglobin A1c Calcium Phosphorus Magnesium AST ALT Alkaline Phosphatase Lactate Dehydrogenase C-Reactive Protein Total Protein 8.7 H 9.2 H Albumin 3.8 L Triglycerides Arterial Blood Glucose Arterial Blood Ionized Calcium Urine Creatinine Random Vancomycin Coronavirus (PCR) Crossmatch 03/14/21 03/14/21 03/14/21 17:29 17:50 18:35 WBC RBC Hgb Hct MCH RDW Plt Count Lymph % (Auto) [place] # (Auto) Eos # (Auto) Seg Neutrophils % Seg Neutrophils # Percent Retic PT INR Fibrinogen D-Dimer ABG pH POC ABG pCO2 POC ABG pO2 ABG pO2 ABG HCO3 ABG O2 Saturation ABG Base Excess ABG Hemoglobin ABG Oxyhemoglobin ABG Sodium ABG Potassium ABG Chloride ABG Glucose Oxyhemoglobin Carboxyhemoglobin Sodium 135 L Potassium 6.4 H* Chloride Carbon Dioxide 15 L BUN 26 H Creatinine 3.4 H D Glucose 165 H POC Glucose 209 H Hemoglobin A1c Calcium Phosphorus Magnesium AST ALT Alkaline Phosphatase Lactate Dehydrogenase C-Reactive Protein Total Protein Albumin Triglycerides Arterial Blood Glucose Arterial Blood Ionized Calcium Urine Creatinine 40.1 H Random Vancomycin Coronavirus (PCR) Crossmatch 03/14/21 03/14/21 03/14/21 18:46 22:23 23:52 WBC RBC Hgb Hct MCH RDW Plt Count Lymph % (Auto) [place] # (Auto) Eos # (Auto) Seg Neutrophils % Seg Neutrophils # Percent Retic PT INR Fibrinogen D-Dimer ABG pH 7.270 L POC ABG pCO2 POC ABG pO2 63.4 L ABG pO2 ABG HCO3 ABG O2 Saturation ABG Base Excess ABG Hemoglobin ABG Oxyhemoglobin 90.2 L ABG Sodium 134.9 L ABG Potassium 5.3 H ABG Chloride ABG Glucose 134 H Oxyhemoglobin Carboxyhemoglobin Sodium 136 L Potassium 5.2 H Chloride Carbon Dioxide 20 L BUN 29 H Creatinine 3.6 H Glucose 236 H POC Glucose 128 H Hemoglobin A1c Calcium Phosphorus Magnesium AST ALT Alkaline Phosphatase Lactate Dehydrogenase C-Reactive Protein Total Protein Albumin 3.2 L Triglycerides Arterial Blood Glucose 134 H Arterial Blood Ionized Calcium Urine Creatinine Random Vancomycin Coronavirus (PCR) Crossmatch 03/14/21 03/15/21 03/15/21 Unknown 05:00 05:09 WBC 22.5 H RBC Hgb Hct MCH 27 L RDW 17.6 H Plt Count Lymph % (Auto) [place] # (Auto) Eos # (Auto) Seg Neutrophils % Seg Neutrophils # Percent Retic PT INR Fibrinogen D-Dimer ABG pH POC ABG pCO2 POC ABG pO2 ABG pO2 ABG HCO3 ABG O2 Saturation ABG Base Excess ABG Hemoglobin ABG Oxyhemoglobin ABG Sodium ABG Potassium ABG Chloride ABG Glucose Oxyhemoglobin Carboxyhemoglobin Sodium Potassium Chloride Carbon Dioxide BUN Creatinine Glucose POC Glucose 116 H Hemoglobin A1c Calcium Phosphorus Magnesium AST ALT Alkaline Phosphatase Lactate Dehydrogenase C-Reactive Protein Total Protein Albumin Triglycerides Arterial Blood Glucose Arterial Blood Ionized Calcium Urine Creatinine Random Vancomycin Coronavirus (PCR) Positive A Crossmatch 03/15/21 03/15/21 03/15/21 05:09 05:09 05:09 WBC RBC Hgb Hct MCH RDW Plt Count Lymph % (Auto) [place] # (Auto) Eos # (Auto) Seg Neutrophils % Seg Neutrophils # Percent Retic PT INR Fibrinogen D-Dimer ABG pH POC ABG pCO2 POC ABG pO2 ABG pO2 ABG HCO3 ABG O2 Saturation ABG Base Excess ABG Hemoglobin ABG Oxyhemoglobin ABG Sodium ABG Potassium ABG Chloride ABG Glucose Oxyhemoglobin Carboxyhemoglobin Sodium 136 L Potassium 6.5 H* D Chloride Carbon Dioxide 17 L BUN 41 H Creatinine 5.3 H Glucose 128 H POC Glucose Hemoglobin A1c 6.3 H Calcium Phosphorus Magnesium AST ALT Alkaline Phosphatase Lactate Dehydrogenase C-Reactive Protein 12.10 H Total Protein Albumin 3.1 L Triglycerides Arterial Blood Glucose Arterial Blood Ionized Calcium Urine Creatinine Random Vancomycin Coronavirus (PCR) Crossmatch 03/15/21 03/15/21 03/15/21 10:00 21:50 23:39 WBC RBC Hgb Hct MCH RDW Plt Count Lymph % (Auto) [place] # (Auto) Eos # (Auto) Seg Neutrophils % Seg Neutrophils # Percent Retic PT INR Fibrinogen D-Dimer ABG pH 7.098 L POC ABG pCO2 72.7 H POC ABG pO2 ABG pO2 162.5 H ABG HCO3 ABG O2 Saturation ABG Base Excess ABG Hemoglobin 10.1 L ABG Oxyhemoglobin ABG Sodium ABG Potassium 5.7 H ABG Chloride ABG Glucose Oxyhemoglobin Carboxyhemoglobin 0.4 L Sodium Potassium Chloride Carbon Dioxide BUN Creatinine Glucose POC Glucose 156 H Hemoglobin A1c Calcium Phosphorus Magnesium AST ALT Alkaline Phosphatase Lactate Dehydrogenase C-Reactive Protein Total Protein Albumin Triglycerides Arterial Blood Glucose Arterial Blood Ionized Calcium Urine Creatinine Random Vancomycin Coronavirus (PCR) Crossmatch 03/16/21 03/16/21 03/16/21 05:00 05:30 05:30 WBC 16.7 H RBC 3.59 L Hgb 9.6 L Hct 30.1 L MCH 27 L RDW 17.5 H Plt Count Lymph % (Auto) [place] # (Auto) Eos # (Auto) Seg Neutrophils % Seg Neutrophils # Percent Retic PT INR Fibrinogen D-Dimer ABG pH POC ABG pCO2 POC ABG pO2 ABG pO2 ABG HCO3 ABG O2 Saturation ABG Base Excess ABG Hemoglobin ABG Oxyhemoglobin ABG Sodium ABG Potassium ABG Chloride ABG Glucose Oxyhemoglobin Carboxyhemoglobin Sodium Potassium Chloride Carbon Dioxide BUN 46 H Creatinine 6.2 H Glucose 131 H POC Glucose Hemoglobin A1c Calcium Phosphorus 6.00 H D Magnesium AST ALT Alkaline Phosphatase Lactate Dehydrogenase 318 H C-Reactive Protein 18.60 H Total Protein Albumin 3.0 L Triglycerides Arterial Blood Glucose Arterial Blood Ionized Calcium Urine Creatinine Random Vancomycin Coronavirus (PCR) Crossmatch 03/16/21 03/16/21 03/16/21 05:51 06:37 08:58 WBC RBC Hgb Hct MCH RDW Plt Count Lymph % (Auto) [place] # (Auto) Eos # (Auto) Seg Neutrophils % Seg Neutrophils # Percent Retic PT INR Fibrinogen D-Dimer 3041.12 H ABG pH POC ABG pCO2 POC ABG pO2 ABG pO2 141.5 H ABG HCO3 ABG O2 Saturation ABG Base Excess ABG Hemoglobin 9.7 L ABG Oxyhemoglobin ABG Sodium ABG Potassium ABG Chloride ABG Glucose Oxyhemoglobin Carboxyhemoglobin Sodium Potassium Chloride Carbon Dioxide BUN Creatinine Glucose POC Glucose 126 H Hemoglobin A1c Calcium Phosphorus Magnesium AST ALT Alkaline Phosphatase Lactate Dehydrogenase C-Reactive Protein Total Protein Albumin Triglycerides Arterial Blood Glucose Arterial Blood Ionized Calcium Urine Creatinine Random Vancomycin Coronavirus (PCR) Crossmatch 03/16/21 03/16/21 03/16/21 12:11 16:51 21:00 WBC RBC Hgb Hct MCH RDW Plt Count Lymph % (Auto) [place] # (Auto) Eos # (Auto) Seg Neutrophils % Seg Neutrophils # Percent Retic PT INR Fibrinogen D-Dimer ABG pH 7.239 L POC ABG pCO2 61.5 H POC ABG pO2 80.8 L ABG pO2 ABG HCO3 ABG O2 Saturation ABG Base Excess ABG Hemoglobin 11.4 L ABG Oxyhemoglobin 93.5 L ABG Sodium ABG Potassium 5.4 H ABG Chloride ABG Glucose 137 H Oxyhemoglobin Carboxyhemoglobin 0.2 L Sodium Potassium Chloride Carbon Dioxide BUN Creatinine Glucose POC Glucose 156 H 133 H Hemoglobin A1c Calcium Phosphorus Magnesium AST ALT Alkaline Phosphatase Lactate Dehydrogenase C-Reactive Protein Total Protein Albumin Triglycerides Arterial Blood Glucose 137 H Arterial Blood Ionized Calcium Urine Creatinine Random Vancomycin Coronavirus (PCR) Crossmatch 03/16/21 03/17/21 03/17/21 23:42 05:23 05:23 WBC 18.4 H RBC Hgb Hct MCH 27 L RDW 17.4 H Plt Count Lymph % (Auto) [place] # (Auto) Eos # (Auto) Seg Neutrophils % Seg Neutrophils # Percent Retic PT INR Fibrinogen D-Dimer ABG pH POC ABG pCO2 POC ABG pO2 ABG pO2 ABG HCO3 ABG O2 Saturation ABG Base Excess ABG Hemoglobin ABG Oxyhemoglobin ABG Sodium ABG Potassium ABG Chloride ABG Glucose Oxyhemoglobin Carboxyhemoglobin Sodium Potassium 5.2 H Chloride Carbon Dioxide 21 L BUN 79 H Creatinine 8.6 H Glucose 124 H POC Glucose 133 H Hemoglobin A1c Calcium Phosphorus Magnesium AST ALT Alkaline Phosphatase Lactate Dehydrogenase C-Reactive Protein Total Protein Albumin 3.2 L Triglycerides 285 H Arterial Blood Glucose Arterial Blood Ionized Calcium Urine Creatinine Random Vancomycin Coronavirus (PCR) Crossmatch 03/17/21 03/17/21 03/17/21 05:23 10:48 12:20 WBC RBC Hgb Hct MCH RDW Plt Count Lymph % (Auto) [place] # (Auto) Eos # (Auto) Seg Neutrophils % Seg Neutrophils # Percent Retic PT INR Fibrinogen D-Dimer ABG pH 7.294 L POC ABG pCO2 POC ABG pO2 ABG pO2 90.3 H ABG HCO3 ABG O2 Saturation ABG Base Excess ABG Hemoglobin 9.9 L ABG Oxyhemoglobin ABG Sodium ABG Potassium ABG Chloride ABG Glucose Oxyhemoglobin Carboxyhemoglobin Sodium Potassium 5.2 H Chloride Carbon Dioxide 21 L BUN 79 H Creatinine 8.4 H Glucose 125 H POC Glucose 171 H Hemoglobin A1c Calcium Phosphorus 9.90 H D Magnesium 2.40 H AST ALT Alkaline Phosphatase Lactate Dehydrogenase C-Reactive Protein Total Protein Albumin Triglycerides Arterial Blood Glucose Arterial Blood Ionized Calcium Urine Creatinine Random Vancomycin Coronavirus (PCR) Crossmatch 03/17/21 03/17/21 03/18/21 17:24 21:00 04:30 WBC RBC Hgb Hct MCH RDW Plt Count Lymph % (Auto) [place] # (Auto) Eos # (Auto) Seg Neutrophils % Seg Neutrophils # Percent Retic PT INR Fibrinogen D-Dimer 9953.09 H ABG pH 7.310 L POC ABG pCO2 54.5 H POC ABG pO2 62.3 L ABG pO2 ABG HCO3 ABG O2 Saturation ABG Base Excess ABG Hemoglobin 10.2 L ABG Oxyhemoglobin 88.6 L ABG Sodium ABG Potassium 4.7 H ABG Chloride ABG Glucose 99 H Oxyhemoglobin Carboxyhemoglobin 0.3 L Sodium Potassium Chloride Carbon Dioxide BUN Creatinine Glucose POC Glucose 121 H Hemoglobin A1c Calcium Phosphorus Magnesium AST ALT Alkaline Phosphatase Lactate Dehydrogenase C-Reactive Protein Total Protein Albumin Triglycerides Arterial Blood Glucose 99 H Arterial Blood Ionized Calcium 4.3 L Urine Creatinine Random Vancomycin Coronavirus (PCR) Crossmatch 03/18/21 03/18/21 03/18/21 04:30 04:30 11:34 WBC 12.8 H RBC 3.49 L Hgb 9.4 L Hct 29.3 L MCH 27 L RDW 17.4 H Plt Count Lymph % (Auto) [place] # (Auto) Eos # (Auto) Seg Neutrophils % Seg Neutrophils # Percent Retic PT INR Fibrinogen D-Dimer ABG pH POC ABG pCO2 POC ABG pO2 ABG pO2 ABG HCO3 ABG O2 Saturation ABG Base Excess ABG Hemoglobin ABG Oxyhemoglobin ABG Sodium ABG Potassium ABG Chloride ABG Glucose Oxyhemoglobin Carboxyhemoglobin Sodium Potassium Chloride Carbon Dioxide BUN 69 H Creatinine 7.3 H Glucose POC Glucose 114 H Hemoglobin A1c Calcium 8.2 L Phosphorus 7.60 H D Magnesium AST ALT Alkaline Phosphatase Lactate Dehydrogenase 477 H C-Reactive Protein 6.90 H Total Protein Albumin Triglycerides Arterial Blood Glucose Arterial Blood Ionized Calcium Urine Creatinine Random Vancomycin Coronavirus (PCR) Crossmatch 03/18/21 03/19/21 03/19/21 21:44 04:13 04:13 WBC 13.7 H RBC 3.32 L Hgb 9.0 L Hct 28.1 L MCH 27 L RDW 16.9 H Plt Count Lymph % (Auto) [place] # (Auto) Eos # (Auto) Seg Neutrophils % Seg Neutrophils # Percent Retic PT INR Fibrinogen D-Dimer ABG pH 7.290 L POC ABG pCO2 POC ABG pO2 ABG pO2 119.7 H ABG HCO3 28.0 H ABG O2 Saturation ABG Base Excess ABG Hemoglobin 9.6 L ABG Oxyhemoglobin ABG Sodium ABG Potassium ABG Chloride ABG Glucose Oxyhemoglobin Carboxyhemoglobin Sodium Potassium Chloride Carbon Dioxide BUN Creatinine Glucose POC Glucose Hemoglobin A1c Calcium Phosphorus Magnesium AST ALT Alkaline Phosphatase Lactate Dehydrogenase C-Reactive Protein Total Protein Albumin Triglycerides Arterial Blood Glucose Arterial Blood Ionized Calcium Urine Creatinine Random Vancomycin 43.5 H Coronavirus (PCR) Crossmatch 03/19/21 03/19/21 03/19/21 04:13 05:59 11:40 WBC RBC Hgb Hct MCH RDW Plt Count Lymph % (Auto) [place] # (Auto) Eos # (Auto) Seg Neutrophils % Seg Neutrophils # Percent Retic PT INR Fibrinogen D-Dimer ABG pH POC ABG pCO2 POC ABG pO2 ABG pO2 ABG HCO3 ABG O2 Saturation ABG Base Excess ABG Hemoglobin ABG Oxyhemoglobin ABG Sodium ABG Potassium ABG Chloride ABG Glucose Oxyhemoglobin Carboxyhemoglobin Sodium Potassium Chloride Carbon Dioxide BUN 55 H Creatinine 7.0 H Glucose POC Glucose 116 H 145 H Hemoglobin A1c Calcium 8.1 L Phosphorus 7.90 H Magnesium AST ALT Alkaline Phosphatase Lactate Dehydrogenase C-Reactive Protein Total Protein Albumin Triglycerides Arterial Blood Glucose Arterial Blood Ionized Calcium Urine Creatinine Random Vancomycin Coronavirus (PCR) Crossmatch 03/19/21 03/19/21 03/20/21 17:01 23:41 04:00 WBC 15.6 H RBC 3.55 L Hgb 9.6 L Hct MCH 27 L RDW 16.8 H Plt Count 139 L Lymph % (Auto) [place]cl[place] # (Auto) Eos # (Auto) Seg Neutrophils % Seg Neutrophils # Percent Retic PT INR Fibrinogen D-Dimer ABG pH POC ABG pCO2 POC ABG pO2 ABG pO2 ABG HCO3 ABG O2 Saturation ABG Base Excess ABG Hemoglobin ABG Oxyhemoglobin ABG Sodium ABG Potassium ABG Chloride ABG Glucose Oxyhemoglobin Carboxyhemoglobin Sodium Potassium Chloride Carbon Dioxide BUN Creatinine Glucose POC Glucose 111 H 118 H Hemoglobin A1c Calcium Phosphorus Magnesium AST ALT Alkaline Phosphatase Lactate Dehydrogenase C-Reactive Protein Total Protein Albumin Triglycerides Arterial Blood Glucose Arterial Blood Ionized Calcium Urine Creatinine Random Vancomycin Coronavirus (PCR) Crossmatch 03/20/21 03/20/21 03/20/21 04:00 04:00 04:37 WBC RBC Hgb Hct MCH RDW Plt Count Lymph % (Auto) [place] # (Auto) Eos # (Auto) Seg Neutrophils % Seg Neutrophils # Percent Retic PT INR Fibrinogen D-Dimer > 83711 H ABG pH 7.306 L POC ABG pCO2 POC ABG pO2 ABG pO2 ABG HCO3 27.9 H ABG O2 Saturation ABG Base Excess ABG Hemoglobin 5.2 L ABG Oxyhemoglobin ABG Sodium ABG Potassium ABG Chloride ABG Glucose Oxyhemoglobin Carboxyhemoglobin Sodium Potassium 5.2 H Chloride 97.6 L Carbon Dioxide BUN 52 H Creatinine 6.2 H Glucose 104 H POC Glucose Hemoglobin A1c Calcium Phosphorus 8.60 H Magnesium AST ALT Alkaline Phosphatase Lactate Dehydrogenase C-Reactive Protein 6.90 H Total Protein Albumin Triglycerides Arterial Blood Glucose Arterial Blood Ionized Calcium Urine Creatinine Random Vancomycin Coronavirus (PCR) Crossmatch 03/20/21 03/20/21 03/20/21 13:50 17:46 17:56 WBC RBC Hgb Hct MCH RDW Plt Count Lymph % (Auto) [place] # (Auto) Eos # (Auto) Seg Neutrophils % Seg Neutrophils # Percent Retic PT INR Fibrinogen D-Dimer ABG pH POC ABG pCO2 POC ABG pO2 ABG pO2 ABG HCO3 ABG O2 Saturation ABG Base Excess ABG Hemoglobin ABG Oxyhemoglobin ABG Sodium ABG Potassium ABG Chloride ABG Glucose Oxyhemoglobin Carboxyhemoglobin Sodium Potassium Chloride Carbon Dioxide BUN 63 H 43 H Creatinine Glucose POC Glucose 145 H Hemoglobin A1c Calcium Phosphorus Magnesium AST ALT Alkaline Phosphatase Lactate Dehydrogenase C-Reactive Protein Total Protein Albumin Triglycerides Arterial Blood Glucose Arterial Blood Ionized Calcium Urine Creatinine Random Vancomycin Coronavirus (PCR) Crossmatch 03/20/21 03/21/21 03/21/21 23:18 06:58 06:58 WBC 14.4 H RBC 3.41 L Hgb 9.5 L Hct 28.6 L MCH RDW 17.4 H Plt Count 107 L Lymph % (Auto) [place] # (Auto) Eos # (Auto) Seg Neutrophils % Seg Neutrophils # Percent Retic PT INR Fibrinogen D-Dimer ABG pH POC ABG pCO2 POC ABG pO2 ABG pO2 ABG HCO3 ABG O2 Saturation ABG Base Excess ABG Hemoglobin ABG Oxyhemoglobin ABG Sodium ABG Potassium ABG Chloride ABG Glucose Oxyhemoglobin Carboxyhemoglobin Sodium Potassium Chloride Carbon Dioxide BUN 60 H Creatinine 7.7 H Glucose POC Glucose 106 H Hemoglobin A1c Calcium Phosphorus Magnesium AST ALT Alkaline Phosphatase Lactate Dehydrogenase C-Reactive Protein Total Protein Albumin Triglycerides Arterial Blood Glucose Arterial Blood Ionized Calcium Urine Creatinine Random Vancomycin Coronavirus (PCR) Crossmatch 03/21/21 03/21/21 03/21/21 11:11 18:04 Unknown WBC RBC Hgb Hct MCH RDW Plt Count Lymph % (Auto) [place] # (Auto) Eos # (Auto) Seg Neutrophils % Seg Neutrophils # Percent Retic PT INR Fibrinogen D-Dimer ABG pH 7.270 L POC ABG pCO2 58.7 H POC ABG pO2 76.9 L ABG pO2 ABG HCO3 ABG O2 Saturation ABG Base Excess ABG Hemoglobin 9.9 L ABG Oxyhemoglobin 92.4 L ABG Sodium 135.8 L ABG Potassium 4.6 H ABG Chloride ABG Glucose Oxyhemoglobin Carboxyhemoglobin 0.1 L Sodium Potassium Chloride Carbon Dioxide BUN Creatinine Glucose POC Glucose 109 H 141 H Hemoglobin A1c Calcium Phosphorus Magnesium AST ALT Alkaline Phosphatase Lactate Dehydrogenase C-Reactive Protein Total Protein Albumin Triglycerides Arterial Blood Glucose Arterial Blood Ionized Calcium 4.5 L Urine Creatinine Random Vancomycin Coronavirus (PCR) Crossmatch 03/22/21 03/22/21 03/22/21 03:09 07:10 10:00 WBC RBC Hgb Hct MCH RDW Plt Count Lymph % (Auto) [place] # (Auto) Eos # (Auto) Seg Neutrophils % Seg Neutrophils # Percent Retic PT INR Fibrinogen D-Dimer ABG pH 7.206 L 7.245 L POC ABG pCO2 55.6 H POC ABG pO2 ABG pO2 90.6 H ABG HCO3 ABG O2 Saturation ABG Base Excess -4.4 L ABG Hemoglobin 9.0 L 8.4 L ABG Oxyhemoglobin ABG Sodium 123.4 L ABG Potassium 5.6 H ABG Chloride ABG Glucose 106 H Oxyhemoglobin 94.5 L Carboxyhemoglobin 0.1 L Sodium Potassium 5.4 H Chloride 96.8 L Carbon Dioxide BUN 89 H Creatinine 8.7 H Glucose 131 H POC Glucose Hemoglobin A1c Calcium Phosphorus Magnesium AST ALT Alkaline Phosphatase Lactate Dehydrogenase C-Reactive Protein 9.40 H Total Protein Albumin Triglycerides Arterial Blood Glucose 106 H Arterial Blood Ionized Calcium Urine Creatinine Random Vancomycin Coronavirus (PCR) Crossmatch 03/22/21 03/22/21 03/22/21 10:00 12:37 13:19 WBC RBC 3.05 L Hgb 8.4 L Hct 25.5 L MCH RDW 17.5 H Plt Count 108 L Lymph % (Auto) [place] # (Auto) Eos # (Auto) Seg Neutrophils % Seg Neutrophils # Percent Retic PT INR Fibrinogen D-Dimer ABG pH POC ABG pCO2 POC ABG pO2 ABG pO2 ABG HCO3 ABG O2 Saturation ABG Base Excess ABG Hemoglobin ABG Oxyhemoglobin ABG Sodium ABG Potassium ABG Chloride ABG Glucose Oxyhemoglobin Carboxyhemoglobin Sodium Potassium Chloride Carbon Dioxide BUN Creatinine 8.7 H Glucose POC Glucose 140 H Hemoglobin A1c Calcium Phosphorus Magnesium AST ALT Alkaline Phosphatase Lactate Dehydrogenase C-Reactive Protein Total Protein Albumin Triglycerides Arterial Blood Glucose Arterial Blood Ionized Calcium Urine Creatinine Random Vancomycin Coronavirus (PCR) Crossmatch 03/22/21 03/22/21 03/22/21 13:40 17:14 18:21 WBC RBC Hgb Hct MCH RDW Plt Count Lymph % (Auto) [place] # (Auto) Eos # (Auto) Seg Neutrophils % Seg Neutrophils # Percent Retic PT 15.8 H INR 1.14 H Fibrinogen D-Dimer > 71897 H ABG pH POC ABG pCO2 POC ABG pO2 ABG pO2 ABG HCO3 ABG O2 Saturation ABG Base Excess ABG Hemoglobin ABG Oxyhemoglobin ABG Sodium ABG Potassium ABG Chloride ABG Glucose Oxyhemoglobin Carboxyhemoglobin Sodium Potassium Chloride Carbon Dioxide BUN Creatinine Glucose POC Glucose 117 H 112 H Hemoglobin A1c Calcium Phosphorus Magnesium AST ALT Alkaline Phosphatase Lactate Dehydrogenase C-Reactive Protein Total Protein Albumin Triglycerides Arterial Blood Glucose Arterial Blood Ionized Calcium Urine Creatinine Random Vancomycin Coronavirus (PCR) Crossmatch 03/22/21 03/22/21 03/23/21 21:25 22:57 04:30 WBC RBC Hgb Hct MCH RDW Plt Count Lymph % (Auto) [place] # (Auto) Eos # (Auto) Seg Neutrophils % Seg Neutrophils # Percent Retic PT INR Fibrinogen D-Dimer ABG pH 7.188 L* POC ABG pCO2 POC ABG pO2 ABG pO2 97.9 H ABG HCO3 ABG O2 Saturation ABG Base Excess -3.7 L ABG Hemoglobin 9.2 L ABG Oxyhemoglobin ABG Sodium ABG Potassium ABG Chloride ABG Glucose Oxyhemoglobin 94.4 L Carboxyhemoglobin Sodium Potassium Chloride Carbon Dioxide BUN Creatinine Glucose POC Glucose 106 H Hemoglobin A1c Calcium Phosphorus Magnesium AST ALT Alkaline Phosphatase Lactate Dehydrogenase C-Reactive Protein Total Protein Albumin Triglycerides 381 H Arterial Blood Glucose Arterial Blood Ionized Calcium Urine Creatinine Random Vancomycin Coronavirus (PCR) Crossmatch 03/23/21 03/23/21 03/23/21 04:30 04:30 05:37 WBC 20.1 H RBC 3.17 L Hgb 8.6 L Hct 27.2 L MCH 27 L RDW 17.4 H Plt Count 118 L Lymph % (Auto) [place] # (Auto) Eos # (Auto) Seg Neutrophils % Seg Neutrophils # Percent Retic PT INR Fibrinogen D-Dimer ABG pH POC ABG pCO2 POC ABG pO2 ABG pO2 ABG HCO3 ABG O2 Saturation ABG Base Excess ABG Hemoglobin ABG Oxyhemoglobin ABG Sodium ABG Potassium ABG Chloride ABG Glucose Oxyhemoglobin Carboxyhemoglobin Sodium Potassium 5.2 H Chloride 97.1 L Carbon Dioxide 21 L BUN 82 H Creatinine 9.1 H Glucose 109 H POC Glucose 130 H Hemoglobin A1c Calcium Phosphorus 10.80 H Magnesium 3.50 H AST ALT Alkaline Phosphatase Lactate Dehydrogenase C-Reactive Protein Total Protein Albumin Triglycerides Arterial Blood Glucose Arterial Blood Ionized Calcium Urine Creatinine Random Vancomycin Coronavirus (PCR) Crossmatch 03/23/21 03/23/21 03/23/21 08:44 11:30 16:09 WBC RBC Hgb Hct MCH RDW Plt Count Lymph % (Auto) [place] # (Auto) Eos # (Auto) Seg Neutrophils % Seg Neutrophils # Percent Retic PT INR Fibrinogen D-Dimer ABG pH 7.190 L POC ABG pCO2 57.9 H POC ABG pO2 79.2 L ABG pO2 ABG HCO3 ABG O2 Saturation ABG Base Excess ABG Hemoglobin 11.8 L ABG Oxyhemoglobin 92.3 L ABG Sodium 131.0 L ABG Potassium 5.0 H ABG Chloride ABG Glucose 122 H Oxyhemoglobin Carboxyhemoglobin 0.4 L Sodium Potassium Chloride Carbon Dioxide BUN Creatinine Glucose POC Glucose 129 H 148 H Hemoglobin A1c Calcium Phosphorus Magnesium AST ALT Alkaline Phosphatase Lactate Dehydrogenase C-Reactive Protein Total Protein Albumin Triglycerides Arterial Blood Glucose 122 H Arterial Blood Ionized Calcium 4.4 L Urine Creatinine Random Vancomycin Coronavirus (PCR) Crossmatch 03/23/21 03/24/21 03/24/21 21:00 03:35 04:00 WBC 17.8 H RBC 2.96 L Hgb 8.1 L Hct 25.0 L MCH 27 L RDW 17.7 H Plt Count 124 L Lymph % (Auto) [place] # (Auto) Eos # (Auto) Seg Neutrophils % Seg Neutrophils # Percent Retic PT INR Fibrinogen D-Dimer ABG pH 7.223 L POC ABG pCO2 50.3 H POC ABG pO2 114.4 H ABG pO2 ABG HCO3 ABG O2 Saturation ABG Base Excess ABG Hemoglobin 8.8 L ABG Oxyhemoglobin ABG Sodium 130.4 L ABG Potassium 5.1 H ABG Chloride ABG Glucose 126 H Oxyhemoglobin Carboxyhemoglobin 0.2 L Sodium Potassium Chloride Carbon Dioxide BUN Creatinine Glucose POC Glucose 148 H Hemoglobin A1c Calcium Phosphorus Magnesium AST ALT Alkaline Phosphatase Lactate Dehydrogenase C-Reactive Protein Total Protein Albumin Triglycerides Arterial Blood Glucose 126 H Arterial Blood Ionized Calcium 4.4 L Urine Creatinine Random Vancomycin Coronavirus (PCR) Crossmatch 03/24/21 03/24/21 03/24/21 04:00 06:49 12:29 WBC RBC Hgb Hct MCH RDW Plt Count Lymph % (Auto) [place] # (Auto) Eos # (Auto) Seg Neutrophils % Seg Neutrophils # Percent Retic PT INR Fibrinogen D-Dimer ABG pH POC ABG pCO2 POC ABG pO2 ABG pO2 ABG HCO3 ABG O2 Saturation ABG Base Excess ABG Hemoglobin ABG Oxyhemoglobin ABG Sodium ABG Potassium ABG Chloride ABG Glucose Oxyhemoglobin Carboxyhemoglobin Sodium Potassium Chloride 95.6 L Carbon Dioxide 20 L BUN 108 H Creatinine 10.8 H Glucose 155 H POC Glucose 136 H 142 H Hemoglobin A1c Calcium Phosphorus Magnesium AST ALT Alkaline Phosphatase Lactate Dehydrogenase C-Reactive Protein Total Protein Albumin Triglycerides Arterial Blood Glucose Arterial Blood Ionized Calcium Urine Creatinine Random Vancomycin Coronavirus (PCR) Crossmatch 03/24/21 03/25/21 03/25/21 21:35 00:15 05:51 WBC RBC Hgb Hct MCH RDW Plt Count Lymph % (Auto) [place] # (Auto) Eos # (Auto) Seg Neutrophils % Seg Neutrophils # Percent Retic PT INR Fibrinogen D-Dimer ABG pH 7.241 L POC ABG pCO2 POC ABG pO2 ABG pO2 72.4 L ABG HCO3 ABG O2 Saturation 90.3 L ABG Base Excess ABG Hemoglobin 7.9 L ABG Oxyhemoglobin ABG Sodium ABG Potassium ABG Chloride ABG Glucose Oxyhemoglobin 88.4 L Carboxyhemoglobin Sodium Potassium Chloride Carbon Dioxide BUN Creatinine Glucose POC Glucose 110 H 121 H Hemoglobin A1c Calcium Phosphorus Magnesium AST ALT Alkaline Phosphatase Lactate Dehydrogenase C-Reactive Protein Total Protein Albumin Triglycerides Arterial Blood Glucose Arterial Blood Ionized Calcium Urine Creatinine Random Vancomycin Coronavirus (PCR) Crossmatch 03/25/21 03/25/21 03/25/21 05:54 05:54 12:21 WBC 12.4 H RBC 2.52 L Hgb 6.9 L Hct 21.1 L MCH RDW 17.4 H Plt Count 102 L Lymph % (Auto) [place] # (Auto) Eos # (Auto) Seg Neutrophils % Seg Neutrophils # Percent Retic PT INR Fibrinogen D-Dimer ABG pH POC ABG pCO2 POC ABG pO2 ABG pO2 ABG HCO3 ABG O2 Saturation ABG Base Excess ABG Hemoglobin ABG Oxyhemoglobin ABG Sodium ABG Potassium ABG Chloride ABG Glucose Oxyhemoglobin Carboxyhemoglobin Sodium Potassium Chloride 96.7 L Carbon Dioxide BUN 81 H Creatinine 8.1 H Glucose 116 H POC Glucose 138 H Hemoglobin A1c Calcium 8.2 L Phosphorus Magnesium AST ALT Alkaline Phosphatase Lactate Dehydrogenase C-Reactive Protein Total Protein Albumin Triglycerides Arterial Blood Glucose Arterial Blood Ionized Calcium Urine Creatinine Random Vancomycin Coronavirus (PCR) Crossmatch 03/25/21 03/25/21 03/25/21 13:45 17:32 21:30 WBC RBC Hgb Hct MCH RDW Plt Count Lymph % (Auto) [place] # (Auto) Eos # (Auto) Seg Neutrophils % Seg Neutrophils # Percent Retic PT INR Fibrinogen D-Dimer ABG pH POC ABG pCO2 POC ABG pO2 ABG pO2 70.2 L ABG HCO3 ABG O2 Saturation ABG Base Excess ABG Hemoglobin 6.8 L ABG Oxyhemoglobin ABG Sodium ABG Potassium ABG Chloride ABG Glucose Oxyhemoglobin 94.5 L Carboxyhemoglobin Sodium Potassium Chloride Carbon Dioxide BUN Creatinine Glucose POC Glucose 110 H Hemoglobin A1c Calcium Phosphorus Magnesium AST ALT Alkaline Phosphatase Lactate Dehydrogenase C-Reactive Protein Total Protein Albumin Triglycerides Arterial Blood Glucose Arterial Blood Ionized Calcium Urine Creatinine Random Vancomycin Coronavirus (PCR) Crossmatch See Detail 03/25/21 03/25/21 03/26/21 23:29 Unknown 05:15 WBC 12.4 H 14.0 H RBC 2.49 L 2.83 L Hgb 6.8 L 7.6 L Hct 20.9 L 23.6 L MCH 27 L 27 L RDW 18.0 H 17.1 H Plt Count 107 L 116 L Lymph % (Auto) [place] # (Auto) Eos # (Auto) Seg Neutrophils % Seg Neutrophils # Percent Retic PT INR Fibrinogen D-Dimer ABG pH POC ABG pCO2 POC ABG pO2 ABG pO2 ABG HCO3 ABG O2 Saturation ABG Base Excess ABG Hemoglobin ABG Oxyhemoglobin ABG Sodium ABG Potassium ABG Chloride ABG Glucose Oxyhemoglobin Carboxyhemoglobin Sodium Potassium Chloride Carbon Dioxide BUN Creatinine Glucose POC Glucose 113 H Hemoglobin A1c Calcium Phosphorus Magnesium AST ALT Alkaline Phosphatase Lactate Dehydrogenase C-Reactive Protein Total Protein Albumin Triglycerides Arterial Blood Glucose Arterial Blood Ionized Calcium Urine Creatinine Random Vancomycin Coronavirus (PCR) Crossmatch 03/26/21 03/26/21 03/26/21 05:15 05:35 09:50 WBC RBC Hgb Hct MCH RDW Plt Count Lymph % (Auto) [place] # (Auto) Eos # (Auto) Seg Neutrophils % Seg Neutrophils # Percent Retic PT INR Fibrinogen D-Dimer ABG pH POC ABG pCO2 POC ABG pO2 ABG pO2 79.9 L ABG HCO3 ABG O2 Saturation ABG Base Excess ABG Hemoglobin 7.1 L ABG Oxyhemoglobin ABG Sodium ABG Potassium ABG Chloride ABG Glucose Oxyhemoglobin 94.9 L Carboxyhemoglobin Sodium Potassium 3.4 L Chloride Carbon Dioxide BUN 70 H Creatinine 7.3 H Glucose 142 H POC Glucose 130 H Hemoglobin A1c Calcium 8.2 L Phosphorus Magnesium AST ALT Alkaline Phosphatase Lactate Dehydrogenase C-Reactive Protein Total Protein Albumin Triglycerides 254 H Arterial Blood Glucose Arterial Blood Ionized Calcium Urine Creatinine Random Vancomycin Coronavirus (PCR) Crossmatch 03/26/21 03/26/21 03/26/21 11:45 16:36 23:33 WBC RBC Hgb Hct MCH RDW Plt Count Lymph % (Auto) [place] # (Auto) Eos # (Auto) Seg Neutrophils % Seg Neutrophils # Percent Retic PT INR Fibrinogen D-Dimer ABG pH POC ABG pCO2 POC ABG pO2 ABG pO2 ABG HCO3 ABG O2 Saturation ABG Base Excess ABG Hemoglobin ABG Oxyhemoglobin ABG Sodium ABG Potassium ABG Chloride ABG Glucose Oxyhemoglobin Carboxyhemoglobin Sodium Potassium Chloride Carbon Dioxide BUN Creatinine Glucose POC Glucose 123 H 121 H 120 H Hemoglobin A1c Calcium Phosphorus Magnesium AST ALT Alkaline Phosphatase Lactate Dehydrogenase C-Reactive Protein Total Protein Albumin Triglycerides Arterial Blood Glucose Arterial Blood Ionized Calcium Urine Creatinine Random Vancomycin Coronavirus (PCR) Crossmatch 03/27/21 03/27/21 03/27/21 03:20 04:14 08:20 WBC 13.2 H RBC 2.82 L Hgb 7.9 L Hct 23.5 L MCH RDW 17.3 H Plt Count 125 L Lymph % (Auto) [place] # (Auto) Eos # (Auto) Seg Neutrophils % Seg Neutrophils # Percent Retic PT INR Fibrinogen D-Dimer ABG pH POC ABG pCO2 50.0 H POC ABG pO2 58.3 L ABG pO2 ABG HCO3 ABG O2 Saturation ABG Base Excess ABG Hemoglobin 11.3 L ABG Oxyhemoglobin 88.5 L ABG Sodium ABG Potassium ABG Chloride ABG Glucose 132 H Oxyhemoglobin Carboxyhemoglobin 0.2 L Sodium Potassium Chloride Carbon Dioxide BUN Creatinine Glucose POC Glucose 119 H Hemoglobin A1c Calcium Phosphorus Magnesium AST ALT Alkaline Phosphatase Lactate Dehydrogenase C-Reactive Protein Total Protein Albumin Triglycerides Arterial Blood Glucose 132 H Arterial Blood Ionized Calcium Urine Creatinine Random Vancomycin Coronavirus (PCR) Crossmatch 03/27/21 03/27/21 03/27/21 08:20 11:39 17:32 WBC RBC Hgb Hct MCH RDW Plt Count Lymph % (Auto) [place] # (Auto) Eos # (Auto) Seg Neutrophils % Seg Neutrophils # Percent Retic PT INR Fibrinogen D-Dimer ABG pH POC ABG pCO2 POC ABG pO2 ABG pO2 ABG HCO3 ABG O2 Saturation ABG Base Excess ABG Hemoglobin ABG Oxyhemoglobin ABG Sodium ABG Potassium ABG Chloride ABG Glucose Oxyhemoglobin Carboxyhemoglobin Sodium Potassium Chloride Carbon Dioxide BUN 57 H Creatinine 6.8 H Glucose 131 H POC Glucose 121 H 126 H Hemoglobin A1c Calcium Phosphorus Magnesium AST ALT Alkaline Phosphatase Lactate Dehydrogenase C-Reactive Protein Total Protein Albumin Triglycerides Arterial Blood Glucose Arterial Blood Ionized Calcium Urine Creatinine Random Vancomycin Coronavirus (PCR) Crossmatch 03/28/21 03/28/21 03/28/21 00:10 04:45 05:25 WBC RBC Hgb Hct MCH RDW Plt Count Lymph % (Auto) [place] # (Auto) Eos # (Auto) Seg Neutrophils % Seg Neutrophils # Percent Retic PT INR Fibrinogen D-Dimer ABG pH POC ABG pCO2 POC ABG pO2 ABG pO2 57.6 L ABG HCO3 27.1 H ABG O2 Saturation 88.5 L ABG Base Excess ABG Hemoglobin ABG Oxyhemoglobin ABG Sodium ABG Potassium ABG Chloride ABG Glucose Oxyhemoglobin 86.6 L Carboxyhemoglobin Sodium Potassium Chloride Carbon Dioxide BUN Creatinine Glucose POC Glucose 113 H 121 H Hemoglobin A1c Calcium Phosphorus Magnesium AST ALT Alkaline Phosphatase Lactate Dehydrogenase C-Reactive Protein Total Protein Albumin Triglycerides Arterial Blood Glucose Arterial Blood Ionized Calcium Urine Creatinine Random Vancomycin Coronavirus (PCR) Crossmatch 03/28/21 03/28/21 03/28/21 09:37 09:37 11:48 WBC 16.3 H RBC 2.92 L Hgb 8.2 L Hct 24.8 L MCH RDW 17.5 H Plt Count Lymph % (Auto) 10.7 L [place] # (Auto) 0.9 H Eos # (Auto) 0.6 H Seg Neutrophils % 80.0 H Seg Neutrophils # 13.0 H Percent Retic PT INR Fibrinogen D-Dimer ABG pH POC ABG pCO2 POC ABG pO2 ABG pO2 ABG HCO3 ABG O2 Saturation ABG Base Excess ABG Hemoglobin ABG Oxyhemoglobin ABG Sodium ABG Potassium ABG Chloride ABG Glucose Oxyhemoglobin Carboxyhemoglobin Sodium Potassium Chloride Carbon Dioxide BUN 61 H Creatinine 7.7 H Glucose 148 H POC Glucose 123 H Hemoglobin A1c Calcium Phosphorus Magnesium AST ALT Alkaline Phosphatase Lactate Dehydrogenase C-Reactive Protein Total Protein Albumin Triglycerides Arterial Blood Glucose Arterial Blood Ionized Calcium Urine Creatinine Random Vancomycin Coronavirus (PCR) Crossmatch 03/28/21 03/28/21 03/28/21 17:33 21:08 23:38 WBC RBC Hgb Hct MCH RDW Plt Count Lymph % (Auto) [place] # (Auto) Eos # (Auto) Seg Neutrophils % Seg Neutrophils # Percent Retic PT INR Fibrinogen D-Dimer ABG pH POC ABG pCO2 POC ABG pO2 80.5 L ABG pO2 ABG HCO3 ABG O2 Saturation ABG Base Excess ABG Hemoglobin 9.5 L ABG Oxyhemoglobin ABG Sodium 133.3 L ABG Potassium ABG Chloride ABG Glucose 134 H Oxyhemoglobin Carboxyhemoglobin 0.3 L Sodium Potassium Chloride Carbon Dioxide BUN Creatinine Glucose POC Glucose 128 H 112 H Hemoglobin A1c Calcium Phosphorus Magnesium AST ALT Alkaline Phosphatase Lactate Dehydrogenase C-Reactive Protein Total Protein Albumin Triglycerides Arterial Blood Glucose 134 H Arterial Blood Ionized Calcium Urine Creatinine Random Vancomycin Coronavirus (PCR) Crossmatch 03/29/21 03/29/21 03/29/21 04:45 04:45 04:45 WBC 17.5 H RBC 3.15 L Hgb 8.8 L Hct 27.2 L MCH RDW 17.9 H Plt Count 132 L Lymph % (Auto) [place] # (Auto) Eos # (Auto) Seg Neutrophils % Seg Neutrophils # Percent Retic PT INR Fibrinogen D-Dimer ABG pH POC ABG pCO2 POC ABG pO2 ABG pO2 ABG HCO3 ABG O2 Saturation ABG Base Excess ABG Hemoglobin ABG Oxyhemoglobin ABG Sodium ABG Potassium ABG Chloride ABG Glucose Oxyhemoglobin Carboxyhemoglobin Sodium Potassium Chloride 97.7 L Carbon Dioxide 21 L BUN 78 H Creatinine 9.5 H Glucose 132 H POC Glucose Hemoglobin A1c Calcium Phosphorus Magnesium AST ALT Alkaline Phosphatase Lactate Dehydrogenase C-Reactive Protein Total Protein Albumin 2.2 L Triglycerides 385 H Arterial Blood Glucose Arterial Blood Ionized Calcium Urine Creatinine Random Vancomycin Coronavirus (PCR) Crossmatch 03/29/21 03/29/21 03/29/21 11:35 16:50 21:06 WBC RBC Hgb Hct MCH RDW Plt Count Lymph % (Auto) [place] # (Auto) Eos # (Auto) Seg Neutrophils % Seg Neutrophils # Percent Retic PT INR Fibrinogen D-Dimer ABG pH POC ABG pCO2 POC ABG pO2 ABG pO2 64.9 L ABG HCO3 ABG O2 Saturation ABG Base Excess -5.2 L ABG Hemoglobin ABG Oxyhemoglobin ABG Sodium ABG Potassium ABG Chloride ABG Glucose Oxyhemoglobin 85.1 L Carboxyhemoglobin Sodium Potassium Chloride Carbon Dioxide BUN Creatinine Glucose POC Glucose 148 H 133 H Hemoglobin A1c Calcium Phosphorus Magnesium AST ALT Alkaline Phosphatase Lactate Dehydrogenase C-Reactive Protein Total Protein Albumin Triglycerides Arterial Blood Glucose Arterial Blood Ionized Calcium Urine Creatinine Random Vancomycin Coronavirus (PCR) Crossmatch 03/29/21 03/30/21 03/30/21 Unknown 00:13 04:00 WBC 15.7 H RBC 3.18 L Hgb 8.6 L Hct 27.3 L MCH 27 L RDW 18.0 H Plt Count 86 L Lymph % (Auto) [place] # (Auto) Eos # (Auto) Seg Neutrophils % Seg Neutrophils # Percent Retic PT INR Fibrinogen D-Dimer ABG pH 7.258 L POC ABG pCO2 POC ABG pO2 ABG pO2 ABG HCO3 ABG O2 Saturation ABG Base Excess -4.9 L ABG Hemoglobin 8.8 L ABG Oxyhemoglobin ABG Sodium ABG Potassium ABG Chloride ABG Glucose Oxyhemoglobin 93.9 L Carboxyhemoglobin Sodium Potassium Chloride Carbon Dioxide BUN Creatinine Glucose POC Glucose 129 H Hemoglobin A1c Calcium Phosphorus Magnesium AST ALT Alkaline Phosphatase Lactate Dehydrogenase C-Reactive Protein Total Protein Albumin Triglycerides Arterial Blood Glucose Arterial Blood Ionized Calcium Urine Creatinine Random Vancomycin Coronavirus (PCR) Crossmatch 03/30/21 03/30/21 03/30/21 04:00 04:00 06:02 WBC RBC Hgb Hct MCH RDW Plt Count Lymph % (Auto) [place] # (Auto) Eos # (Auto) Seg Neutrophils % Seg Neutrophils # Percent Retic PT INR Fibrinogen D-Dimer 2607.12 H ABG pH POC ABG pCO2 POC ABG pO2 ABG pO2 ABG HCO3 ABG O2 Saturation ABG Base Excess ABG Hemoglobin ABG Oxyhemoglobin ABG Sodium ABG Potassium ABG Chloride ABG Glucose Oxyhemoglobin Carboxyhemoglobin Sodium 133 L Potassium 5.2 H D Chloride 91.5 L Carbon Dioxide 18 L BUN 101 H Creatinine 10.6 H Glucose 149 H POC Glucose 130 H Hemoglobin A1c Calcium Phosphorus 10.30 H Magnesium AST ALT Alkaline Phosphatase Lactate Dehydrogenase C-Reactive Protein 21.50 H Total Protein Albumin Triglycerides Arterial Blood Glucose Arterial Blood Ionized Calcium Urine Creatinine Random Vancomycin Coronavirus (PCR) Crossmatch 03/30/21 03/30/21 03/30/21 10:36 11:48 17:20 WBC RBC Hgb Hct MCH RDW Plt Count Lymph % (Auto) [place] # (Auto) Eos # (Auto) Seg Neutrophils % Seg Neutrophils # Percent Retic PT INR Fibrinogen D-Dimer ABG pH 7.224 L POC ABG pCO2 49.1 H POC ABG pO2 61.5 L ABG pO2 ABG HCO3 ABG O2 Saturation ABG Base Excess ABG Hemoglobin 10.2 L ABG Oxyhemoglobin 86.2 L ABG Sodium 129.6 L ABG Potassium 5.4 H ABG Chloride 96.0 L ABG Glucose 161 H Oxyhemoglobin Carboxyhemoglobin Sodium Potassium Chloride Carbon Dioxide BUN Creatinine Glucose POC Glucose 163 H 130 H Hemoglobin A1c Calcium Phosphorus Magnesium AST ALT Alkaline Phosphatase Lactate Dehydrogenase C-Reactive Protein Total Protein Albumin Triglycerides Arterial Blood Glucose 161 H Arterial Blood Ionized Calcium 4.4 L Urine Creatinine Random Vancomycin Coronavirus (PCR) Crossmatch 03/30/21 03/31/21 03/31/21 23:49 00:28 05:20 WBC 17.3 H RBC 2.99 L Hgb 8.2 L Hct 25.3 L MCH 27 L RDW 18.3 H Plt Count 126 L Lymph % (Auto) [place] # (Auto) Eos # (Auto) Seg Neutrophils % Seg Neutrophils # Percent Retic PT INR Fibrinogen D-Dimer ABG pH 7.249 L POC ABG pCO2 POC ABG pO2 77.7 L ABG pO2 ABG HCO3 ABG O2 Saturation ABG Base Excess ABG Hemoglobin 9.0 L ABG Oxyhemoglobin 92.9 L ABG Sodium 130.4 L ABG Potassium 4.7 H ABG Chloride ABG Glucose 166 H Oxyhemoglobin Carboxyhemoglobin 0.4 L Sodium Potassium Chloride Carbon Dioxide BUN Creatinine Glucose POC Glucose 143 H Hemoglobin A1c Calcium Phosphorus Magnesium AST ALT Alkaline Phosphatase Lactate Dehydrogenase C-Reactive Protein Total Protein Albumin Triglycerides Arterial Blood Glucose 166 H Arterial Blood Ionized Calcium 4.3 L Urine Creatinine Random Vancomycin Coronavirus (PCR) Crossmatch 03/31/21 03/31/21 03/31/21 05:20 06:18 09:44 WBC RBC Hgb Hct MCH RDW Plt Count Lymph % (Auto) [place] # (Auto) Eos # (Auto) Seg Neutrophils % Seg Neutrophils # Percent Retic PT INR Fibrinogen D-Dimer ABG pH 7.247 L POC ABG pCO2 POC ABG pO2 ABG pO2 ABG HCO3 ABG O2 Saturation 94.4 L ABG Base Excess -5.1 L ABG Hemoglobin 8.2 L ABG Oxyhemoglobin ABG Sodium ABG Potassium ABG Chloride ABG Glucose Oxyhemoglobin 92.4 L Carboxyhemoglobin Sodium Potassium Chloride Carbon Dioxide BUN Creatinine Glucose POC Glucose 155 H Hemoglobin A1c Calcium Phosphorus 8.20 H D Magnesium AST ALT Alkaline Phosphatase Lactate Dehydrogenase C-Reactive Protein Total Protein Albumin Triglycerides Arterial Blood Glucose Arterial Blood Ionized Calcium Urine Creatinine Random Vancomycin Coronavirus (PCR) Crossmatch 03/31/21 03/31/21 03/31/21 09:49 09:55 09:55 WBC RBC Hgb Hct MCH RDW Plt Count Lymph % (Auto) [place] # (Auto) Eos # (Auto) Seg Neutrophils % Seg Neutrophils # Percent Retic 4.52 H PT 16.5 H INR 1.20 H Fibrinogen D-Dimer ABG pH POC ABG pCO2 POC ABG pO2 ABG pO2 ABG HCO3 ABG O2 Saturation ABG Base Excess ABG Hemoglobin ABG Oxyhemoglobin ABG Sodium ABG Potassium ABG Chloride ABG Glucose Oxyhemoglobin Carboxyhemoglobin Sodium 133 L Potassium Chloride 92.8 L Carbon Dioxide 20 L BUN 87 H Creatinine 8.9 H Glucose 177 H POC Glucose Hemoglobin A1c Calcium 8.2 L Phosphorus Magnesium AST 169 H ALT Alkaline Phosphatase 187 H Lactate Dehydrogenase C-Reactive Protein Total Protein Albumin 2.3 L Triglycerides Arterial Blood Glucose Arterial Blood Ionized Calcium Urine Creatinine Random Vancomycin Coronavirus (PCR) Crossmatch 03/31/21 03/31/21 03/31/21 09:55 09:55 11:25 WBC RBC Hgb Hct MCH RDW Plt Count Lymph % (Auto) [place] # (Auto) Eos # (Auto) Seg Neutrophils % Seg Neutrophils # Percent Retic PT INR Fibrinogen 491 H D-Dimer ABG pH POC ABG pCO2 POC ABG pO2 ABG pO2 ABG HCO3 ABG O2 Saturation ABG Base Excess ABG Hemoglobin ABG Oxyhemoglobin ABG Sodium ABG Potassium ABG Chloride ABG Glucose Oxyhemoglobin Carboxyhemoglobin Sodium Potassium Chloride Carbon Dioxide BUN Creatinine Glucose POC Glucose 178 H Hemoglobin A1c Calcium Phosphorus Magnesium AST ALT Alkaline Phosphatase Lactate Dehydrogenase 509 H C-Reactive Protein Total Protein Albumin Triglycerides Arterial Blood Glucose Arterial Blood Ionized Calcium Urine Creatinine Random Vancomycin Coronavirus (PCR) Crossmatch 03/31/21 03/31/21 03/31/21 12:30 17:40 21:00 WBC RBC Hgb Hct MCH RDW Plt Count Lymph % (Auto) [place] # (Auto) Eos # (Auto) Seg Neutrophils % Seg Neutrophils # Percent Retic PT INR Fibrinogen D-Dimer ABG pH 7.235 L 7.216 L POC ABG pCO2 POC ABG pO2 ABG pO2 76.8 L 113.9 H ABG HCO3 ABG O2 Saturation 93.2 L ABG Base Excess -5.3 L -7.3 L ABG Hemoglobin 6.3 L 8.0 L ABG Oxyhemoglobin ABG Sodium ABG Potassium ABG Chloride ABG Glucose Oxyhemoglobin 91.1 L Carboxyhemoglobin Sodium Potassium Chloride Carbon Dioxide BUN Creatinine Glucose POC Glucose 245 H Hemoglobin A1c Calcium Phosphorus Magnesium AST ALT Alkaline Phosphatase Lactate Dehydrogenase C-Reactive Protein Total Protein Albumin Triglycerides Arterial Blood Glucose Arterial Blood Ionized Calcium Urine Creatinine Random Vancomycin Coronavirus (PCR) Crossmatch 04/01/21 04/01/21 04/01/21 00:11 05:09 08:25 WBC RBC Hgb Hct MCH RDW Plt Count Lymph % (Auto) [place] # (Auto) Eos # (Auto) Seg Neutrophils % Seg Neutrophils # Percent Retic PT INR Fibrinogen D-Dimer ABG pH 7.225 L POC ABG pCO2 POC ABG pO2 ABG pO2 76.4 L ABG HCO3 ABG O2 Saturation 92.2 L ABG Base Excess -7.6 L ABG Hemoglobin 7.3 L ABG Oxyhemoglobin ABG Sodium ABG Potassium ABG Chloride ABG Glucose Oxyhemoglobin 90.2 L Carboxyhemoglobin Sodium Potassium Chloride Carbon Dioxide BUN Creatinine Glucose POC Glucose 209 H 173 H Hemoglobin A1c Calcium Phosphorus Magnesium AST ALT Alkaline Phosphatase Lactate Dehydrogenase C-Reactive Protein Total Protein Albumin Triglycerides Arterial Blood Glucose Arterial Blood Ionized Calcium Urine Creatinine Random Vancomycin Coronavirus (PCR) Crossmatch 04/01/21 04/01/21 04/01/21 12:01 12:05 Unknown WBC RBC Hgb Hct MCH RDW Plt Count Lymph % (Auto) [place] # (Auto) Eos # (Auto) Seg Neutrophils % Seg Neutrophils # Percent Retic PT INR Fibrinogen D-Dimer ABG pH POC ABG pCO2 POC ABG pO2 ABG pO2 ABG HCO3 ABG O2 Saturation ABG Base Excess ABG Hemoglobin ABG Oxyhemoglobin ABG Sodium ABG Potassium ABG Chloride ABG Glucose Oxyhemoglobin Carboxyhemoglobin Sodium 132 L Potassium 5.9 H 6.6 H* D Chloride 91.3 L Carbon Dioxide 17 L BUN 104 H Creatinine 9.3 H Glucose 199 H POC Glucose 202 H Hemoglobin A1c Calcium 8.3 L Phosphorus Magnesium AST 236 H ALT 93 H Alkaline Phosphatase 191 H Lactate Dehydrogenase C-Reactive Protein Total Protein Albumin 2.4 L Triglycerides Arterial Blood Glucose Arterial Blood Ionized Calcium Urine Creatinine Random Vancomycin Coronavirus (PCR) Crossmatch 04/01/21 Unknown WBC 27.2 H RBC 3.08 L Hgb 8.4 L Hct 26.0 L MCH 27 L RDW 18.5 H Plt Count Lymph % (Auto) [place] # (Auto) Eos # (Auto) Seg Neutrophils % Seg Neutrophils # Percent Retic PT INR Fibrinogen D-Dimer ABG pH POC ABG pCO2 POC ABG pO2 ABG pO2 ABG HCO3 ABG O2 Saturation ABG Base Excess ABG Hemoglobin ABG Oxyhemoglobin ABG Sodium ABG Potassium ABG Chloride ABG Glucose Oxyhemoglobin Carboxyhemoglobin Sodium Potassium Chloride Carbon Dioxide BUN Creatinine Glucose POC Glucose Hemoglobin A1c Calcium Phosphorus Magnesium AST ALT Alkaline Phosphatase Lactate Dehydrogenase C-Reactive Protein Total Protein Albumin Triglycerides Arterial Blood Glucose Arterial Blood Ionized Calcium Urine Creatinine Random Vancomycin Coronavirus (PCR) Crossmatch Chest x-ray: pending Allied health notes reviewed: nursing
[2021-04-01] MEDS: MIDAZOLAM 100 MG in SODIUM CHLORIDE 0.9% 80 ML IV SCH (15:10)
[2021-04-01] MEDS ORDERED: CALCIUM GLUCONATE 2,000 MG in SODIUM CHLORIDE 0.9% 100 ML IV SCH (17:00)
[2021-04-01] MEDS ORDERED: ALBUMIN HUMAN 5% (25 GM/500 ML) INJ IV SCH (17:00)
[2021-04-01] MEDS ORDERED: ALBUMIN HUMAN 5% (12.5 GM/250 ML) INJ IV SCH (17:00)
--- NOTE | 2021-04-01 17:54 | Progress Note ---
<CRISTY PASCUAL - Last Filed: 04/01/21 17:56> Assessment and Plan Assessment and plan: This is a 31-year-old female with asthma, morbid obesity and Crohn's disease admitted for COVID-19 pneumonia and and acute renal failure Neuro: Sedated -Intubated and sedated on propofol and fentanyl and versed -sedation to vent synchrony -Daily SAT/SBT when appropriate -Maintain sleep-wake cycle -Avoid delirium CV: Tachycardia, s/p hypertension now with hypotension -ST on the monitor -Vasopressor support with levophed, vasopressin and Anthony-Synephrine -Maintain MAP above 65 -Blood pressure monitoring via A-line Respiratory: Acute hypoxic respiratory failure, asthma exacerbation, COVID-19 pneumonia, ARDS, RUL PNA, bronchospasm (resolved) -DuoNeb, steroids -Patient was intubated on 03/14 for respiratory distress and inability to protect airway -Intubated with 7.50 ETT at 24 at the lip -A.m. vent settings: AcPCV rate 30, peep 10, 65% FiO2 -See RT notes for titration -ABGs per CCM -VAP bundle -SPO2 monitoring -CCM/pulmonary consulted, appreciate recommendations -S/p BiPAP therapy GI: transaminitis, h/o MO and Crohn's disease -Nutrition consulted, appreciate recommendations -Tube feeding: Nepro -Free water 100 mL every 4 hours -BR: [place] -PPI -24 hours -3699 -BMS in place : Acute kidney injury likely secondary to ATN, hyperphosphatemia, hyperkalemia -Nephrology consulted, appreciate recommendations -Vas-Cath placed 03/15 -HD initiated 03/15 -Daily weights -Strict intake and output -Avoid nephrotoxic medications -Renally dose medications -Trend BMP -Intervene for electrolytes as needed -HD per nephrology -hyperkalemia medically treated ID: COVID-19 pneumonia, leukocytosis, Staph aureus in tracheal aspirate, Conjunctival hemorrhage, ?HUS vs TTP vs drug reaction -Infectious disease consulted, appreciate recommendations -COVID-19 PCR positive -IV steroid -started on 1g methylprednisone for 3 days -s/p Actemra per ID -Per ID patient is on a candidate for remdesivir due to renal failure -Patient received 1 dose of remdesivir on 03/14 -Prophylactic anticoagulation based on D-dimer -s/p Cipro/Dex drops for 5 days -Abx per ID: [email or web address] 03/27-03/31 -Trend COVID-19 inflammatory markers -Isolation/droplet precautions -Vitamin C/vitamin D/zinc -03/13 BC x2 no growth to date -03/14 tracheal aspirate with Staph aureus (ID aware) -Monitor WBC and fever curve -We will initiate plasmapheresis per heme/onc -scheduled for today -LDH 509, Eliezer pending, fibrinogen 491 Heme: Leukocytosis, elevated D-dimer, thrombocytopenia -Trend CBC -Transfuse hemoglobin less than 7 -Eliquis restarted 03/29 -SCDs to bilateral lower extremity while in bed -BLE duplex US shows no DVT Endo: Hyperglycemia -Hemoglobin A1c 6.3 -SSI -Accu-Cheks every 6 -Avoid hypoglycemia -Target blood glucose while critically ill 140-180 The high probability of a clinically significant, sudden or life threatening deterioration of the [multiple] system(s) required my full and direct attention, intervention and personal management. The aggregate critical care time was [60] minutes. This time is in addition to time spent performing reported procedures but includes the following: [x] Data Review and interpretation [x] Patient assessment and monitoring of vital signs [x] Documentation [x] Medication orders and management Disposition Plan: icu Total Time Spent with Patient (Minutes): 60 History Interval history: This is a 31-year-old female with asthma, history of prior intubation x1 in 02/2019, morbid obesity and Crohn's disease who presented to the emergency department on 03/13 with complaints of severe wheezing and shortness of breath over the past 4 days which is not relieved by home nebulizer treatments or rescue inhalers, cough without fever and no loss of sense of taste or smell. Patient is currently on vaccinated for COVID-19. In the emergency department patient was placed on BiPAP given steroids magnesium Solu-Medrol with improvement, CXR shows a streak of possible pneumonia. Patient was made a COVID-19 PUI and admitted to the hospital service. Patient was initially admitted to [facility] on BiPAP and was subsequently intubated due to severe respiratory distress and inability to protect her airway. Patient was admitted with acute hypoxic respiratory failure, acute asthma exacerbation, right upper lobe pneumonia, and as a COVID-19 PUI. Hospital Course to Date: 03/14/21- Patient is s/p intubation from this morning, sedated on propofol and fentanyl RASS -3 to -4. ETT above the clavicles advanced by 2cc. Continue nebs and IV steroids per [facility]. COVID swab pending. Hyperkalemia improved, X1 dose of kayaxalate ordered. Low BP and low urine output this am, fluid bolus challenge, 500cc of NS bolus given. Continue to monitor electrolytes and renal function, repeat BMP this afternoon. 03/15: Patient's renal function noted to be significantly worse today, patient was hyperkalemic and this was medically treated. Patient initiated on hemodialysis today. infectious disease was consulted today. 03/16: No acute events reported overnight, patient received hemodialysis yesterday. Patient is currently on propofol and fentanyl. 03/17: Patient received hemodialysis today, patient is slightly acidotic on ABG however [facility] is allowing for permissive hypercapnia, tracheal aspirate with Staph aureus and ID is aware. 03/18: Patient is having high residuals today and Reglan was started, patient will receive HD daily per nephrology, correct her change in FiO2 as tolerated. 03/19: HD per nephrology today, antibiotics changed to cefazolin. Patient did not tolerate tube feedings as she had high residuals this morning and they were turned off. Not restarted yet. Updated family at bedside today 03/20: HD today, ddimer noted to be >1000, Tolerating trickle TF. Stat BLE dopplar US 03/21: Patient is not tolerating TF, CXR shows worsening infiltrates, [facility] made changes to vent, TF on hold and started on IVF. 03/22/21- Patient remains intubated and on sedation. Persistent vomiting, TF held overnight, no documented BM, on reglan BR added, Shaun citarte & supp. HD today. Plan to restart TF at 10ml/hr, will reevaluate in the am. Persistent thrombocytopenia, Hep on hold, HIT panel ordered, PO eliquis initiated. 03/23/21- Patient remains on the vent and sedated on propofol and fentanyl RASS - 2 to -3. Possible SAT today as tolerated. Patient tolerated trickle feeds overnight, plan to advance TF by 10cc Q8 to 12hrs. Continue current BR and continue reglan for now. Slightr worsening in acidosis from this am, d/w [facility] vent setting adjusted, will repeat ABG at 9pm. 03/24/21- Patient is on the vent and sedated, on fentanyl and propfol. Bilateral subconjunctival hemorrhage with periorbital edema noted this am, pupils are round and reactive, will Cipro/Dex [id number]. Worsening of kidney function from today's labs, plan for HD per Nephro. 03/25/21- Patient remains intubated and on sedatin, RASS 0 to -1, no longer on pressors. Sudden drop in H&H this am, bilateral subconjunctival hemorrhage with no sig change, no signs of any active bleeding. Patient appears neurologically intact, following commands, pupils are round and reactive with + gag and cough, moved all extremities. D/w [facility] patient is too unstable for CT at this time. Eliquis D/Devaughn, 1unit of PRBC ordered. Will continue to trend CBC. Plan for another section of HD today 03/26/21- Patient remains on the vent and sedated. VENICE reported from overnight. Plan for HD again today. H&H back up and stable, no AC at this time, SCDs for VTE phro. D/w [facility] patient is still too unstable for CT scan, will continue neuro exam and will continue to monitor H&H. 03/27/21- VENICE overnight. remains on the vent and sedated. Red localized rashes noted in patient upper chest and face, will r/o allergic reaction,CBC with auto diff and urine eosinophils ordered. Plan for HD today per Nephro. 03/28/21- Patient remains on the vent and sedated. Persistent fevers overnight unrelieved with antipyretic, currently on a cooling blanket. Back on pressors for hypotension, patient already on IV abx, last blood cultureX2 and sputum culture from 03/23 were negative. Continue IV abx, will reculture patient, orders placed for B.culture and sputum culture. ID is also on consult. will continue F/u on culture and continue to monitor BMP and CBC. 03/29: Patient restarted on prednisone given splotchy rash, will resume apixaban for VTE prophylaxis and repeat ABG at 9 PM. Remains with leukocytosis, elevated BUN/creatinine, elevated triglycerides and on Levophed 03/30: HD today, rash is still present and started on IV steroids. plt is low today but will continue to monitor. CCM made changes to vent-> decrease in MV. ABG in the pm and possible punch biopsy tomorrow if rash is not improved. propofol changed to versed 03/31: Heme/oncology consulted yesterday, will start patient on plasmapheresis for possible HUS. Cefepime discontinued today as today was the last day. Patient started on pulse dose steroids of 1 g/day for 3 days. Some improvement noted to eyes this morning. Patient was febrile overnight and received ibup rofen overnight. Acetaminophen allergy confirmed with family, allergy is only to oxycodone and hydrocodone but not the acetaminophen component. Confirmed by family patient has no reaction to [id number] Tylenol. Remains on vasopressor support and sedated with fentanyl, propofol and Versed. Vent mode changed to pressure control ventilation. Patient started on Arctic sun for fever control. Mother updated over telephone this a.m. and this p.m. family meeting held with her mother, sister x 2 and brother and with 2 other unknown people over the phone (1 female and one male) and nurse. Family states that patient is likely to an antibiotic possibly penicillins. This information was not available to us before. 04/01: Hyperkalemia medically treated, patient scheduled for dialysis today, plasmapheresis for possible HUS scheduled for today, steroids should be ending tomorrow, generalized rash/discoloration minimally better. Patient still remains on Arctic sun for temperature regulation. Vent changes per [facility]. Hospitalist Physical - Constitutional Vitals: Temp Pulse Resp BP Pulse Ox 98.2 F 100 H 22 124/67 100 04/01/21 16:00 04/01/21 17:45 04/01/21 17:45 04/01/21 17:45 04/01/21 17:45 General appearance: Present: no acute distress, well-nourished, obese, other (Intubated and sedated) - EENT Eyes: Present: PERRL, EOM intact ENT: dentition normal - Neck Neck: Present: normal ROM - Respiratory Respiratory effort: normal Respiratory: bilateral: diminished - Cardiovascular Rhythm: regular Heart Sounds: Present: S1 & S2. Absent: systolic murmur, diastolic murmur - Extremities Extremities: no ischemia, pulses intact, pulses symmetrical, normal temperature Extremity abnormal: edema, erythema, other (discoloration) Peripheral Pulses: within normal limits - Abdominal General gastrointestinal: soft, non-tender, non-distended, normal bowel sounds - Integumentary Integumentary: Present: dry, erythema - Psychiatric Psychiatric: other (sedated) - Neurologic Neurologic: other (sedated) - Allied Health Allied health notes reviewed: nursing, RT, social work Results - Labs CBC & Chem 7: 04/01/21 Unknown 04/01/21 Unknown Labs: Laboratory Last Values WBC 27.2 K/mm3 (4.5-11.0) H 04/01/21 Unknown RBC 3.08 M/mm3 (3.65-5.03) L 04/01/21 Unknown Hgb 8.4 gm/dl (10.1-14.3) L 04/01/21 Unknown Hct 26.0 % (30.3-42.9) L 04/01/21 Unknown MCV 85 fl (79-97) 04/01/21 Unknown MCH 27 pg (28-32) L 04/01/21 Unknown MCHC 32 % (30-34) 04/01/21 Unknown RDW 18.5 % (13.2-15.2) H 04/01/21 Unknown Plt Count 184 K/mm3 (140-440) 04/01/21 Unknown Lymph % (Auto) 10.7 % (13.4-35.0) L 03/28/21 09:37 [place] % (Auto) 5.2 % (0.0-7.3) 03/28/21 09:37 Eos % (Auto) 3.9 % (0.0-4.3) 03/28/21 09:37 Baso % (Auto) 0.2 % (0.0-1.8) 03/28/21 09:37 Lymph # (Auto) 1.7 K/mm3 (1.2-5.4) 03/28/21 09:37 [place] # (Auto) 0.9 K/mm3 (0.0-0.8) H 03/28/21 09:37 Eos # (Auto) 0.6 K/mm3 (0.0-0.4) H 03/28/21 09:37 Baso # (Auto) 0.0 K/mm3 (0.0-0.1) 03/28/21 09:37 Seg Neutrophils % 80.0 % (40.0-70.0) H 03/28/21 09:37 Seg Neutrophils # 13.0 K/mm3 (1.8-7.7) H 03/28/21 09:37 Percent Retic 4.52 % (0.78-2.58) H 03/31/21 09:49 PT 16.5 Sec. (12.2-14.9) H 03/31/21 09:55 INR 1.20 (0.87-1.13) H 03/31/21 09:55 APTT 26.8 Sec. (24.2-36.6) 03/22/21 13:40 Fibrinogen 491 mg/dl (211-480) H 03/31/21 09:55 D-Dimer 2607.12 ng/mlDDU (0-234) H 03/30/21 04:00 Heparin Anti-Xa, Unfract TNR 03/22/21 08:20 ABG pH 7.225 pH Units (7.350-7.450) L 04/01/21 08:25 POC ABG pCO2 47.7 mmHg (32.0-48.0) 03/30/21 23:49 ABG pCO2 50.0 mm Hg 04/01/21 08:25 POC ABG pO2 77.7 mmHg (83-108) L 03/30/21 23:49 ABG pO2 76.4 mm Hg (80.0-90.0) L 04/01/21 08:25 POC ABG HCO3 20.4 03/30/21 23:49 ABG HCO3 20.2 mmol/L (20.0-26.0) 04/01/21 08:25 ABG O2 Saturation 92.2 % (95.0-99.0) L 04/01/21 08:25 ABG O2 Content 19.3 (0.0-44) 04/01/21 08:25 POC ABG Base Excess -6.6 03/30/21 23:49 ABG Base Excess -7.6 mmol/L (-2.0-3.0) L 04/01/21 08:25 ABG Hemoglobin 7.3 gm/dl (12.0-16.0) L 04/01/21 08:25 ABG Oxyhemoglobin 92.9 (94-98) L 03/30/21 23:49 ABG Carboxyhemoglobin 1.6 % (0.0-5.0) 04/01/21 08:25 ABG Methemoglobin 0.6 % (0.0-1.5) 04/01/21 08:25 ABG Sodium 130.4 mmol/L (136.0-145.0) L 03/30/21 23:49 ABG Potassium 4.7 mmol/L (3.40-4.50) H 03/30/21 23:49 ABG Chloride 98.0 mmol/L (98-107) 03/30/21 23:49 ABG Glucose 166 mg/dL (65-95) H 03/30/21 23:49 ABG Lactate Cancelled 03/29/21 21:06 Oxyhemoglobin 90.2 % (95.0-99.0) L 04/01/21 08:25 Carboxyhemoglobin 0.4 (0.5-1.5) L 03/30/21 23:49 FiO2 65 % 04/01/21 08:25 FiO2 % 50.0 03/30/21 23:49 Sodium 132 mmol/L (137-145) L 04/01/21 Unknown Potassium 6.6 mmol/L (3.6-5.0) H* D 04/01/21 Unknown Chloride 91.3 mmol/L (98-107) L 04/01/21 Unknown Carbon Dioxide 17 mmol/L (22-30) L 04/01/21 Unknown Anion Gap 30 mmol/L 04/01/21 Unknown BUN 104 mg/dL (7-17) H 04/01/21 Unknown Creatinine 9.3 mg/dL (0.6-1.2) H 04/01/21 Unknown Estimated GFR 6 ml/min 04/01/21 Unknown BUN/Creatinine Ratio 11 % 04/01/21 Unknown Glucose 199 mg/dL (65-100) H 04/01/21 Unknown POC Glucose 202 mg/dL (70-105) H 04/01/21 12:01 Hemoglobin A1c 6.3 % (4-6) H 03/15/21 05:09 Lactic Acid 2.00 mmol/L (0.7-2.0) 03/14/21 18:47 Calcium 8.3 mg/dL (8.4-10.2) L 04/01/21 Unknown Phosphorus 8.20 mg/dL (2.5-4.5) H D 03/31/21 05:20 Magnesium 1.90 mg/dL (1.7-2.3) 03/31/21 05:20 Ferritin 151.6 ng/mL (10.0-200.0) 03/18/21 04:30 Total Bilirubin 0.40 mg/dL (0.1-1.2) 04/01/21 Unknown Bilirubin Cancelled 03/29/21 21:06 AST 236 units/L (5-40) H 04/01/21 Unknown ALT 93 units/L (7-56) H 04/01/21 Unknown Alkaline Phosphatase 191 units/L (35-129) H 04/01/21 Unknown Lactate Dehydrogenase 509 units/L (91-180) H 03/31/21 09:55 C-Reactive Protein 21.50 mg/dL (0.00-1.30) H 03/30/21 04:00 Total Protein 6.8 g/dL (6.3-8.2) 04/01/21 Unknown Albumin 2.4 g/dL (3.9-5) L 04/01/21 Unknown Albumin/Globulin Ratio 0.5 % 04/01/21 Unknown Triglycerides 385 mg/dL (2-149) H 03/29/21 04:45 Procalcitonin < 0.05 ng/mL (<0.15) 03/13/21 15:40 HCG, Qual Negative (Negative) 03/13/21 13:26 Arterial Blood Glucose 166 mg/dL (65-95) H 03/30/21 23:49 Arterial Blood Ionized Calcium 4.3 mg/dL (4.6-5.3) L 03/30/21 23:49 Urine Creatinine 40.1 mg/dL (0.1-20.0) H 03/14/21 17:50 Urine Sodium 124 mmol/L 03/14/21 17:50 Random Vancomycin 11.2 ug/mL (0-40.0) 03/20/21 04:23 Heparin-induced Plt Ab Negative (Negative) 03/22/21 08:20 UF Heparin High Dose TNR 03/22/21 08:20 JUAN UFH Low Dose 0.1 TNR 03/22/21 08:20 JUAN UFH Low Dose 0.5 TNR 03/22/21 08:20 Coronavirus (PCR) Positive (Negative) A 03/14/21 Unknown Hepatitis A IgM Ab Non-reactive (NonReactive) 03/15/21 05:09 Hep Bs Antigen Nonreactive (Negative) 03/15/21 05:09 Hep B Core IgM Ab Non-reactive (NonReactive) 03/15/21 05:09 Hepatitis C Antibody Non-reactive (NonReactive) 03/15/21 05:09 Schistocytes Smear None seen 03/31/21 12:11 Blood Type O POSITIVE 03/25/21 13:45 Antibody Screen Negative 03/25/21 13:45 Direct Antiglob Test Negative 03/31/21 23:18 NIKOLE, Poly Interpret Negative 03/31/21 23:18 Crossmatch See Detail 03/25/21 13:45 Microbiology: Microbiology 03/29/21 23:26 Peripheral/Venous Blood Culture - Preliminary NO GROWTH AFTER 48 HOURS 03/29/21 23:30 Peripheral/Venous Blood Culture - Preliminary NO GROWTH AFTER 48 HOURS Bazan/IV: Voiding Method Incontinent Active Medications - Current Medications Current Medications: Generic Name Dose Route Start Last Admin Trade Name Freq PRN Reason Stop Dose Admin Acetaminophen 650 mg 03/31/21 12:41 Acetaminophen 325 Mg/10.15 Ml Oral Liqd Unit Dose FEEDTUBE Q6H PRN TEMP >/=100.4 Albumin Human 25 gm 04/01/21 08:19 04/01/21 16:23 Albumin Human 25% (25 Gm/100 Ml) Inj IV 25 gm KARLOS PRN Administration Hypotension Albumin Human 100 gm 04/01/21 17:00 Albumin Human 5% (25 Gm/500 Ml) Inj IV 04/01/21 19:00 ONCE@1700 INESSA Albumin Human 50 gm 04/01/21 17:00 Albumin Human 5% (12.5 Gm/250 Ml) Inj IV 04/01/21 19:00 ONCE@1700 INESSA Albuterol 2.5 mg 03/19/21 00:53 Albuterol 2.5 Mg/3 Ml Nebu IH Q4HRT PRN Shortness Of Breath Albuterol/Ipratropium 1 ampul 03/19/21 08:00 04/01/21 14:40 Ipratropium/Albuterol Sulfate 3 Ml Ampul.Neb IH 1 ampul Q6HRT INESSA Administration Lipase/Protease/Amylase 1 each 03/15/21 11:42 Lipase 10,500/Protease 25,000/Amylase 43,750 (Units) Dr Cap FEEDTUBE PRN PRN For Clogged Feeding Tube Apixaban 2.5 mg 03/29/21 13:00 04/01/21 09:29 Apixaban 2.5 Mg Tab PO 2.5 mg Q12HR INESSA Administration Protocol Ascorbic Acid 500 mg 03/14/21 22:00 04/01/21 09:29 Ascorbic Acid 500 Mg Tab PO 500 mg BID INESSA Administration Dextrose 50 ml 03/14/21 11:02 03/15/21 11:40 Dextrose 50% In Water (25gm) 50 Ml Syringe IV 50 ml Q30MIN PRN Administration Hypoglycemia Protocol Famotidine 10 mg 03/17/21 22:00 04/01/21 09:29 Famotidine 10 Mg Tab PO 10 mg BID INESSA Administration Fentanyl 50 mcg 03/15/21 10:43 03/28/21 09:25 Fentanyl 100 Mcg/2 Ml Inj IV 50 mcg Q10MIN PRN Administration ANALGESIA Hydrophilic Ointment 1 applic 03/14/21 17:50 Lip Therapy Vaseline TP Q2HR PRN Dry Lips Propofol 1,000 mg in 100 mls @ 4.123 mls/hr 03/15/21 11:00 04/01/21 14:23 Diprivan 10 Mg/Ml IV 30 mcg/kg/min TITR INESSA 24.739 mls/hr Administration Protocol 5 MCG/KG/MIN Fentanyl Citrate 2,000 mcg in 100 mls @ 6.872 mls/hr 03/15/21 11:00 04/01/21 14:09 Fentanyl Drip Premix IV 4 mcg/kg/hr TITR INESSA 27.488 mls/hr Administration Protocol 1 MCG/KG/HR Sodium Chloride 500 mls @ 1 mls/hr 03/16/21 17:19 Nacl 0.9% 500 Ml IV DIRECT PRN ARTERIAL LINE FLUSH NORepinephrine/NS 8 MG-250 ML 8 mg in 250 mls @ 3.75 mls/hr 03/23/21 11:00 04/01/21 17:40 Norepinephrine/Ns 8 Mg-250 Ml (Double Conc) IV 16 mcg/min TITRATE INESSA 30 mls/hr Titration Protocol 2 MCG/MIN Midazolam HCl 100 mg/ Sodium 100 mls @ 1 mls/hr 03/30/21 15:00 04/01/21 15:10 Chloride IV 4 mg/hr TITR INESSA 4 mls/hr Administration Protocol 1 MG/HR Vasopressin 20 unit/ Sodium 101 mls @ 9.09 mls/hr 03/30/21 20:00 04/01/21 12:04 Chloride IV 0.03 units/min TITR INESSA 9.09 mls/hr Administration 0.03 UNITS/MIN Phenylephrine HCl 100 mg/ 100 mls @ 3 mls/hr 03/31/21 04:00 04/01/21 17:21 Sodium Chloride IV 110 mcg/min TITR INESSA 6.6 mls/hr Titration Protocol 50 MCG/MIN Methylprednisolone Sodium 250 mls @ 250 mls/hr 03/31/21 09:00 04/01/21 09:29 Succinate 1,000 mg/ Sodium IV 04/02/21 09:59 250 mls/hr Chloride Q24H INESSA Administration Sodium Chloride 100 mls @ 999 mls/hr 04/01/21 08:19 Nacl 0.9% IV KARLOS PRN Hypotension Calcium Gluconate 2,000 mg/ 120 mls @ 660 mls/hr 04/01/21 17:00 Sodium Chloride IV 04/01/21 19:00 ONCE@1700 INESSA Insulin Human Lispro 0 unit 03/14/21 12:00 04/01/21 12:54 Insulin Lispro 100 Unit/Ml SUB-Q 3 unit Q6HR [facility] Administration Protocol Lorazepam 1 mg 03/13/21 19:40 03/30/21 19:58 Lorazepam 2 Mg/Ml Vial IV 1 mg Q4H PRN Administration Anxiety Midazolam HCl 2 mg 03/30/21 14:19 03/30/21 14:30 Midazolam 2 Mg/2 Ml Inj IV 2 mg Q10MIN PRN Administration Sedation Multi-Ingred Cream/Lotion/Oil/Oint 1 applic 03/14/21 17:50 03/30/21 09:43 Mineral Oil/Petrolatum, White Ophth Oint 3.5 Gm OU 1 applic Q4HR PRN Administration Dry Eye(s) Ondansetron HCl 4 mg 03/13/21 19:30 03/21/21 12:05 Ondansetron 4 Mg/2 Ml Inj IV 4 mg Q8H PRN Administration Nausea And Vomiting Senna/Docusate Sodium 1 tab 03/14/21 22:00 04/01/21 17:20 Sennosides/Docusate Sodium 8.6/50 Mg Tab FEEDTUBE Not Given BID INESSA Simple Syrup 15 ml 03/15/21 11:42 Simple Syrup 15 Ml FEEDTUBE PRN PRN Hypoglycemia Simple Syrup 30 ml 03/15/21 11:42 Simple Syrup 15 Ml FEEDTUBE PRN PRN Hypoglycemia Sodium Bicarbonate 325 mg 03/15/21 11:42 03/21/21 17:21 Sodium Bicarbonate 325 Mg Tab FEEDTUBE 325 mg PRN PRN Administration For Clogged Feeding Tube Sodium Chloride 10 ml 03/13/21 22:00 04/01/21 17:21 Sodium Chloride 0.9% 10 Ml Flush Syringe IV Not Given BID INESSA Sodium Chloride 10 ml 03/13/21 19:30 Sodium Chloride 0.9% 10 Ml Flush Syringe IV PRN PRN LINE FLUSH Zinc Sulfate 220 mg 03/14/21 22:00 04/01/21 09:30 Zinc Sulfate 220 Mg Cap PO 220 mg BID INESSA Administration Nutrition/Malnutrition Assess - Dietary Evaluation Nutrition/Malnutrition Findings: Nutrition Notes Start: 03/15/21 11:06 Freq: Status: Active Protocol: Document 03/27/21 10:27 [facility] (Rec: 03/27/21 10:33 [facility] [id number]) Nutrition Notes Initial or Follow up Brief Note Subjective/Other Information Spoke with pt's RN via phone at 10:27. Pt tolerating TF at goal rate. Rectal tube remains in place. Percent of energy/protein needs met: 99% energy 73% pro Nutrition Intervention Follow-Up By: 04/02/21 Additional Comments F/U: stable TF, vent status, rectal tube, propofol, wt <SAURABH ALBRECHT - Last Filed: 04/03/21 07:21> Assessment and Plan Assessment and plan: I saw and evaluated the patient. Discussed with the nurse practitioner and agree with their findings and plan as documented in this note. Hospitalist Physical - Constitutional Vitals: Temp Pulse Resp BP Pulse Ox 98.6 F 100 H 23 88/30 97 04/03/21 04:00 04/03/21 05:15 04/03/21 05:15 04/03/21 05:15 04/03/21 05:15 Results - Labs CBC & Chem 7: 04/03/21 04:30 04/03/21 04:30 Labs: Laboratory Last Values WBC 31.1 K/mm3 (4.5-11.0) H 04/03/21 04:30 RBC 2.78 M/mm3 (3.65-5.03) L 04/03/21 04:30 Hgb 8.0 gm/dl (10.1-14.3) L 04/03/21 04:30 Hct 24.0 % (30.3-42.9) L 04/03/21 04:30 MCV 86 fl (79-97) 04/03/21 04:30 MCH 29 pg (28-32) 04/03/21 04:30 MCHC 34 % (30-34) 04/03/21 04:30 RDW 19.0 % (13.2-15.2) H 04/03/21 04:30 Plt Count 145 K/mm3 (140-440) 04/03/21 04:30 Lymph % (Auto) 10.7 % (13.4-35.0) L 03/28/21 09:37 [place] % (Auto) 5.2 % (0.0-7.3) 03/28/21 09:37 Eos % (Auto) Edi Consultant 04/03/21 04:30 Baso % (Auto) 0.2 % (0.0-1.8) 03/28/21 09:37 Lymph # (Auto) 1.7 K/mm3 (1.2-5.4) 03/28/21 09:37 [place] # (Auto) 0.9 K/mm3 (0.0-0.8) H 03/28/21 09:37 Eos # (Auto) 0.6 K/mm3 (0.0-0.4) H 03/28/21 09:37 Baso # (Auto) 0.0 K/mm3 (0.0-0.1) 03/28/21 09:37 Add Manual Diff Complete 04/03/21 04:30 Total Counted 100 04/03/21 04:30 Seg Neutrophils % 80.0 % (40.0-70.0) H 03/28/21 09:37 Seg Neuts % (Manual) 44.0 % (40.0-70.0) 04/03/21 04:30 Lymphocytes % (Manual) 27.0 % (13.4-35.0) 04/03/21 04:30 Eosinophils % (Manual) 27.0 % (0.0-4.3) H 04/03/21 04:30 Basophils % (Manual) 2.0 % (0.0-1.8) H 04/03/21 04:30 Nucleated RBC % Not Reportable 04/03/21 04:30 Seg Neutrophils # 13.0 K/mm3 (1.8-7.7) H 03/28/21 09:37 Seg Neutrophils # Man 13.7 K/mm3 (1.8-7.7) H 04/03/21 04:30 Band Neutrophils # 0.0 K/mm3 04/03/21 04:30 Lymphocytes # (Manual) 8.4 K/mm3 (1.2-5.4) H 04/03/21 04:30 Abs React Lymphs (Man) 0.0 K/mm3 04/03/21 04:30 Monocytes # (Manual) 0.0 K/mm3 (0.0-0.8) 04/03/21 04:30 Eosinophils # (Manual) 8.4 K/mm3 (0.0-0.4) H 04/03/21 04:30 Basophils # (Manual) 0.6 K/mm3 (0.0-0.1) H 04/03/21 04:30 Metamyelocytes # 0.0 K/mm3 04/03/21 04:30 Myelocytes # 0.0 K/mm3 04/03/21 04:30 Promyelocytes # 0.0 K/mm3 04/03/21 04:30 Blast Cells # 0.0 K/mm3 04/03/21 04:30 WBC Morphology Not Reportable 04/03/21 04:30 Hypersegmented Neuts Not Reportable 04/03/21 04:30 Hyposegmented Neuts Not Reportable 04/03/21 04:30 Hypogranular Neuts Not Reportable 04/03/21 04:30 Smudge Cells Not Reportable 04/03/21 04:30 Toxic Granulation Not Reportable 04/03/21 04:30 Toxic Vacuolation Not Reportable 04/03/21 04:30 Dohle Bodies Not Reportable 04/03/21 04:30 Pelger-Huet Anomaly Not Reportable 04/03/21 04:30 Bridgette Rods Not Reportable 04/03/21 04:30 Platelet Estimate Not Reportable 04/03/21 04:30 Clumped Platelets Not Reportable 04/03/21 04:30 Plt Clumps, EDTA Not Reportable 04/03/21 04:30 Large Platelets Not Reportable 04/03/21 04:30 Giant Platelets Not Reportable 04/03/21 04:30 Platelet Satelliting Not Reportable 04/03/21 04:30 Plt Morphology Comment Not Reportable 04/03/21 04:30 RBC Morphology Normal 04/03/21 04:30 Dimorphic RBCs Not Reportable 04/03/21 04:30 Polychromasia Not Reportable 04/03/21 04:30 Hypochromasia Not Reportable 04/03/21 04:30 Poikilocytosis Not Reportable 04/03/21 04:30 Anisocytosis Not Reportable 04/03/21 04:30 Microcytosis Not Reportable 04/03/21 04:30 Macrocytosis Not Reportable 04/03/21 04:30 Spherocytes Not Reportable 04/03/21 04:30 Pappenheimer Bodies Not Reportable 04/03/21 04:30 Sickle Cells Not Reportable 04/03/21 04:30 Target Cells Not Reportable 04/03/21 04:30 Tear Drop Cells Not Reportable 04/03/21 04:30 Ovalocytes Not Reportable 04/03/21 04:30 Helmet Cells Not Reportable 04/03/21 04:30 Kebede-Denio Bodies Not Reportable 04/03/21 04:30 Elliston Rings Not Reportable 04/03/21 04:30 Delmar Cells Not Reportable 04/03/21 04:30 Bite Cells Not Reportable 04/03/21 04:30 Crenated Cell Not Reportable 04/03/21 04:30 Elliptocytes Not Reportable 04/03/21 04:30 Acanthocytes (Spur) Not Reportable 04/03/21 04:30 Rouleaux Not Reportable 04/03/21 04:30 Hemoglobin C Crystals Not Reportable 04/03/21 04:30 Schistocytes Not Reportable 04/03/21 04:30 Malaria parasites Not Reportable 04/03/21 04:30 Percent Retic 4.52 % (0.78-2.58) H 03/31/21 09:49 Vaibhav Bodies Not Reportable 04/03/21 04:30 Hem Pathologist Commnt No 04/03/21 04:30 PT 16.0 Sec. (12.2-14.9) H 04/02/21 04:00 INR 1.16 (0.87-1.13) H 04/02/21 04:00 APTT 29.5 Sec. (24.2-36.6) 04/02/21 04:00 Fibrinogen 248 mg/dl (211-480) 04/02/21 04:00 D-Dimer 2607.12 ng/mlDDU (0-234) H 03/30/21 04:00 Heparin Anti-Xa, Unfract TNR 03/22/21 08:20 ABG pH Cancelled 04/02/21 20:40 POC ABG pCO2 Cancelled 04/02/21 20:40 ABG pCO2 58.6 mm Hg 04/02/21 20:40 POC ABG pO2 Cancelled 04/02/21 20:40 ABG pO2 111.9 mm Hg (80.0-90.0) H 04/02/21 20:40 POC ABG HCO3 Cancelled 04/02/21 20:40 ABG HCO3 18.9 mmol/L (20.0-26.0) L 04/02/21 20:40 ABG O2 Saturation Cancelled 04/02/21 20:40 ABG O2 Content Cancelled 04/02/21 20:40 POC ABG Base Excess Cancelled 04/02/21 20:40 ABG Base Excess -9.9 mmol/L (-2.0-3.0) L 04/02/21 20:40 ABG Hemoglobin Cancelled 04/02/21 20:40 ABG Oxyhemoglobin Cancelled 04/02/21 20:40 ABG Carboxyhemoglobin 1.6 % (0.0-5.0) 04/02/21 20:40 ABG Methemoglobin Cancelled 04/02/21 20:40 ABG Sodium Cancelled 04/02/21 20:40 ABG Potassium Cancelled 04/02/21 20:40 ABG Chloride Cancelled 04/02/21 20:40 ABG Glucose Cancelled 04/02/21 20:40 ABG Lactate Cancelled 04/02/21 20:40 Oxyhemoglobin 95.0 % (95.0-99.0) 04/02/21 20:40 Carboxyhemoglobin Cancelled 04/02/21 20:40 FiO2 50 % 04/02/21 20:40 FiO2 % Cancelled 04/02/21 20:40 Sodium 132 mmol/L (137-145) L 04/03/21 04:30 Potassium 5.8 mmol/L (3.6-5.0) H 04/03/21 04:30 Chloride 94.5 mmol/L (98-107) L 04/03/21 04:30 Carbon Dioxide 16 mmol/L (22-30) L 04/03/21 04:30 Anion Gap 27 mmol/L 04/03/21 04:30 BUN 97 mg/dL (7-17) H 04/03/21 04:30 Creatinine 7.7 mg/dL (0.6-1.2) H 04/03/21 04:30 Estimated GFR 7 ml/min 04/03/21 04:30 BUN/Creatinine Ratio 13 % 04/03/21 04:30 Glucose 230 mg/dL (65-100) H 04/03/21 04:30 POC Glucose 201 mg/dL (70-105) H 04/03/21 03:39 Hemoglobin A1c 6.3 % (4-6) H 03/15/21 05:09 Lactic Acid 2.00 mmol/L (0.7-2.0) 03/14/21 18:47 Calcium 7.6 mg/dL (8.4-10.2) L 04/03/21 04:30 Phosphorus 10.30 mg/dL (2.5-4.5) H 04/03/21 04:30 Magnesium 2.10 mg/dL (1.7-2.3) 04/03/21 04:30 Ferritin 151.6 ng/mL (10.0-200.0) 03/18/21 04:30 Total Bilirubin 0.50 mg/dL (0.1-1.2) 04/03/21 04:30 Bilirubin Cancelled 04/02/21 20:40 AST 47 units/L (5-40) H 04/03/21 04:30 ALT 30 units/L (7-56) 04/03/21 04:30 Alkaline Phosphatase 146 units/L (35-129) H 04/03/21 04:30 Lactate Dehydrogenase 509 units/L (91-180) H 03/31/21 09:55 C-Reactive Protein 21.50 mg/dL (0.00-1.30) H 03/30/21 04:00 Total Protein 5.2 g/dL (6.3-8.2) L 04/03/21 04:30 Albumin 3.4 g/dL (3.9-5) L 04/03/21 04:30 Albumin/Globulin Ratio 1.9 % 04/03/21 04:30 Triglycerides 579 mg/dL (2-149) H 04/02/21 05:00 Procalcitonin < 0.05 ng/mL (<0.15) 03/13/21 15:40 HCG, Qual Negative (Negative) 03/13/21 13:26 Arterial Blood Glucose Cancelled 04/02/21 20:40 Arterial Blood Ionized Calcium Cancelled 04/02/21 20:40 Urine Creatinine 40.1 mg/dL (0.1-20.0) H 03/14/21 17:50 Urine Sodium 124 mmol/L 03/14/21 17:50 Random Vancomycin 11.2 ug/mL (0-40.0) 03/20/21 04:23 Heparin-induced Plt Ab Negative (Negative) 03/22/21 08:20 UF Heparin High Dose TNR 03/22/21 08:20 JUAN UFH Low Dose 0.1 TNR 03/22/21 08:20 JUAN UFH Low Dose 0.5 TNR 03/22/21 08:20 Coronavirus (PCR) Positive (Negative) A 03/14/21 Unknown Hepatitis A IgM Ab Non-reactive (NonReactive) 03/15/21 05:09 Hep Bs Antigen Nonreactive (Negative) 03/15/21 05:09 Hep B Core IgM Ab Non-reactive (NonReactive) 03/15/21 05:09 Hepatitis C Antibody Non-reactive (NonReactive) 03/15/21 05:09 Schistocytes Smear None seen 03/31/21 12:11 Blood Type O POSITIVE 03/25/21 13:45 Antibody Screen Negative 03/25/21 13:45 Direct Antiglob Test Negative 03/31/21 23:18 NIKOLE, Poly Interpret Negative 03/31/21 23:18 Crossmatch See Detail 03/25/21 13:45 Microbiology: Microbiology 03/29/21 23:26 Peripheral/Venous Blood Culture - Preliminary NO GROWTH AFTER 4 DAYS 03/29/21 23:30 Peripheral/Venous Blood Culture - Preliminary NO GROWTH AFTER 4 DAYS Bazan/IV: Voiding Method Incontinent Active Medications - Current Medications Current Medications: Generic Name Dose Route Start Last Admin Trade Name Freq PRN Reason Stop Dose Admin Acetaminophen 650 mg 03/31/21 12:41 04/02/21 14:30 Acetaminophen 325 Mg/10.15 Ml Oral Liqd Unit Dose FEEDTUBE 650 mg Q6H PRN Administration TEMP >/=100.4 Albumin Human 25 gm 04/01/21 08:19 04/01/21 16:23 Albumin Human 25% (25 Gm/100 Ml) Inj IV 25 gm KARLOS PRN Administration Hypotension Albuterol 2.5 mg 03/19/21 00:53 Albuterol 2.5 Mg/3 Ml Nebu IH Q4HRT PRN Shortness Of Breath Albuterol/Ipratropium 1 ampul 03/19/21 08:00 04/03/21 01:08 Ipratropium/Albuterol Sulfate 3 Ml Ampul.Neb IH 1 ampul Q6HRT INESSA Administration Lipase/Protease/Amylase 1 each 03/15/21 11:42 Lipase 10,500/Protease 25,000/Amylase 43,750 (Units) Dr White FEEDTUBE PRN PRN For Clogged Feeding Tube Apixaban 2.5 mg 03/29/21 13:00 04/02/21 21:53 Apixaban 2.5 Mg Tab PO 2.5 mg Q12HR INESSA Administration Protocol Ascorbic Acid 500 mg 03/14/21 22:00 04/02/21 21:53 Ascorbic Acid 500 Mg Tab PO 500 mg BID INESSA Administration Dextrose 50 ml 03/14/21 11:02 03/15/21 11:40 Dextrose 50% In Water (25gm) 50 Ml Syringe IV 50 ml Q30MIN PRN Administration Hypoglycemia Protocol Famotidine 10 mg 03/17/21 22:00 04/02/21 21:53 Famotidine 10 Mg Tab PO 10 mg BID INESSA Administration Fentanyl 50 mcg 03/15/21 10:43 03/28/21 09:25 Fentanyl 100 Mcg/2 Ml Inj IV 50 mcg Q10MIN PRN Administration ANALGESIA Hydrophilic Ointment 1 applic 03/14/21 17:50 Lip Therapy Vaseline TP Q2HR PRN Dry Lips Propofol 1,000 mg in 100 mls @ 4.123 mls/hr 03/15/21 11:00 04/03/21 04:25 Diprivan 10 Mg/Ml IV 30 mcg/kg/min TITR INESSA 24.739 mls/hr Administration Protocol 5 MCG/KG/MIN Fentanyl Citrate 2,000 mcg in 100 mls @ 6.872 mls/hr 03/15/21 11:00 04/03/21 03:46 Fentanyl Drip Premix IV 3 mcg/kg/hr TITR INESSA 20.616 mls/hr Administration Protocol 1 MCG/KG/HR Sodium Chloride 500 mls @ 1 mls/hr 03/16/21 17:19 Nacl 0.9% 500 Ml IV DIRECT PRN ARTERIAL LINE FLUSH NORepinephrine/NS 8 MG-250 ML 8 mg in 250 mls @ 3.75 mls/hr 03/23/21 11:00 04/03/21 06:27 Norepinephrine/Ns 8 Mg-250 Ml (Double Conc) IV 18 mcg/min TITRATE INESSA 33.75 mls/hr Administration Protocol 2 MCG/MIN Midazolam HCl 100 mg/ Sodium 100 mls @ 1 mls/hr 03/30/21 15:00 04/02/21 19:40 Chloride IV 4 mg/hr TITR INESSA 4 mls/hr Titration Protocol 1 MG/HR Vasopressin 20 unit/ Sodium 101 mls @ 9.09 mls/hr 03/30/21 20:00 04/02/21 22:39 Chloride IV 0.03 units/min TITR INESSA 9.09 mls/hr Administration 0.03 UNITS/MIN Phenylephrine HCl 100 mg/ 100 mls @ 3 mls/hr 03/31/21 04:00 04/03/21 00:18 Sodium Chloride IV 60 mcg/min TITR INESSA 3.6 mls/hr Titration Protocol 50 MCG/MIN Sodium Chloride 100 mls @ 999 mls/hr 04/01/21 08:19 Nacl 0.9% IV KARLOS PRN Hypotension Sodium Bicarbonate 150 meq/ 1,150 mls @ 75 mls/hr 04/02/21 22:00 04/02/21 22:59 Dextrose IV 75 mls/hr DIRECT INESSA Administration Insulin Human Lispro 0 unit 03/14/21 12:00 04/03/21 06:28 Insulin Lispro 100 Unit/Ml SUB-Q 3 unit Q6HR INESSA Administration Protocol Lorazepam 1 mg 03/13/21 19:40 03/30/21 19:58 Lorazepam 2 Mg/Ml Vial IV 1 mg Q4H PRN Administration Anxiety Methylprednisolone Sodium Succinate 125 mg 04/03/21 06:00 04/03/21 06:28 Methylprednisolone Sod Succinate 125 Mg/2 Ml Inj IV 04/04/21 05:59 125 mg Q8HR INESSA Administration Methylprednisolone Sodium Succinate 80 mg 04/04/21 22:00 Methylprednisolone Sod Succinate 125 Mg/2 Ml Inj IV Q8HR INESSA Midazolam HCl 2 mg 03/30/21 14:19 03/30/21 14:30 Midazolam 2 Mg/2 Ml Inj IV 2 mg Q10MIN PRN Administration Sedation Multi-Ingred Cream/Lotion/Oil/Oint 1 applic 03/14/21 17:50 04/02/21 14:31 Mineral Oil/Petrolatum, White Ophth Oint 3.5 Gm OU 1 applic Q4HR PRN Administration Dry Eye(s) Ondansetron HCl 4 mg 03/13/21 19:30 03/21/21 12:05 Ondansetron 4 Mg/2 Ml Inj IV 4 mg Q8H PRN Administration Nausea And Vomiting Senna/Docusate Sodium 1 tab 03/14/21 22:00 04/02/21 21:53 Sennosides/Docusate Sodium 8.6/50 Mg Tab FEEDTUBE 1 tab BID INESSA Administration Simple Syrup 15 ml 03/15/21 11:42 Simple Syrup 15 Ml FEEDTUBE PRN PRN Hypoglycemia Simple Syrup 30 ml 03/15/21 11:42 Simple Syrup 15 Ml FEEDTUBE PRN PRN Hypoglycemia Sodium Bicarbonate 325 mg 03/15/21 11:42 03/21/21 17:21 Sodium Bicarbonate 325 Mg Tab FEEDTUBE 325 mg PRN PRN Administration For Clogged Feeding Tube Sodium Chloride 10 ml 03/13/21 22:00 04/02/21 21:53 Sodium Chloride 0.9% 10 Ml Flush Syringe IV 10 ml BID INESSA Administration Sodium Chloride 10 ml 03/13/21 19:30 Sodium Chloride 0.9% 10 Ml Flush Syringe IV PRN PRN LINE FLUSH Zinc Sulfate 220 mg 03/14/21 22:00 04/02/21 21:55 Zinc Sulfate 220 Mg Cap PO 220 mg BID INESSA Administration Nutrition/Malnutrition Assess - Dietary Evaluation Nutrition/Malnutrition Findings: Nutrition Notes Start: 03/15/21 11:06 Freq: Status: Active Protocol: Document 04/02/21 15:08 REJI (Rec: 04/02/21 15:19 [email or web address] [email or web address]) Nutrition Notes Initial or Follow up Reassessment Current Diagnosis Acute Kidney Injury, Hypertension,Respiratory Failure Other Pertinent Diagnosis COVID-19 pneu, periorbital edema Current Diet TF - Nepro at 44ml/hr Labs/Tests Na 132 K 5.3 BUN 80 Cr 6.8 BG 174 Triglycerides 579 Pertinent Medications Propofol at 32.985ml/hr ( provides 871 kcal), Human Albumin, Solumedrol, Levophed gtt, Phenylephrine gtt, Vasopressin gtt, Kionex Height 5 ft 5 in Weight 137.438 kg [place] Body Weight (kg) 56.81 BMI 50.4 Weight Status Morbidly Obese Subjective/Other Information Spoke with pt's RN via phone at 15:06. Pt tolerating TF at goal rate, despite being on three pressors. Per RN, been able to decrease pressor concentration. Pt been spiking a fever for past few days; Artic sun blanket in place to lower body temperature. Pt remains on vent support. Percent of energy/protein needs met: 99% energy 73% pro Burn Absent Trauma Absent Minimum of two criteria No #1 Nutrition Diagnosis Swallowing difficulty Diagnosis Progress(for reassessment Continues documentation) Is patient on ventilator? Yes Is Patient Ambulatory and/or Out of Bed No REE-([facility]-confined to bed) 2515.536 Kcal/Kg value to use for calculation 14 Approximate Energy Requirements Using 1924 kcal/Kg Calculation Used for Recommendations Kcal/kg Additional Notes Pro needs >1.2g/kg adjBW: > 117g/day Fluid needs 1-1.5L/day Nutrition Intervention Nutrition Support: Continue Nepro at 44ml/hr. Provide 120ml water flush q4h Kcal 1,901 Protein (gm) 86 Carbohydrates (gm) 170 Fat (gm) 101 Fluid (mL) 768 Fiber (gm) 13 Goal #1 TF tolerance Goal #2 TF to meet at least 75% energy and pro needs Follow-Up By: 04/09/21 Additional Comments F/U: stable TF, vent status, wt, propofol, pressor support, rectal tube
[2021-04-01] MEDS ORDERED: SODIUM CHLORIDE 0.9% 1000 ML 1,000 ML ONE (18:19)
[2021-04-01] MEDS: PHENYLEPHRINE 100 MG in SODIUM CHLORIDE 0.9% 90 ML IV SCH (21:07)
[2021-04-02] MEDS: fentaNYL DRIP Premix 2,000 MCG/100 ML BAG IV SCH ×7 (01:04→22:38)
[2021-04-02] MEDS: INSULIN LISPRO 100 UNIT/ML SUB-Q SCH ×4 (02:18→18:11)
[2021-04-02] MEDS: NORepinephrine/NS 8 MG-250 ML 8 MG/250 ML INFUS..BTL IV SCH ×3 (03:27→22:38)
[2021-04-02] MEDS: IPRATROPIUM/ALBUTEROL SULFATE 3 ML AMPUL.NEB IH SCH ×4 (04:02→19:39)
[2021-04-02 05:15] LABS: Hematocrit 24.7 % (30.3-42.9); Mean Corpuscular HGB Conc 33 % (30-34); Mean Corpuscular Volume 84 fl (79-97); Platelet Count 131 K/mm3 (140-440); Red Blood Count 2.93 M/mm3 (3.65-5.03); Red Cell Distribution Width 19.2 % (13.2-15.2)
[2021-04-02 05:24] LABS: INR 1.16 (0.87-1.13); Partial Thromboplastin Time 29.5 Sec. (24.2-36.6)
[2021-04-02 05:37] LABS: Albumin 3.5 g/dL (3.9-5); Calcium 7.7 mg/dL (8.4-10.2)
[2021-04-02] MEDS: MINERAL OIL/PETROLATUM, WHITE OPHTH OINT 3.5 GM OU PRN ×2 (08:21→14:31)
--- NOTE | 2021-04-02 08:53 | Hem/Onc Progress Note ---
Subjective Date of service: 04/02/21 Interval history: Heme progress note cpt: [id number] Dx: thrombocytopenia This is a 31yo female with past medical h/o asthma with prior intubation in 2019, morbid obesity, and Crohns disease Presented to the ER on 03/13/21 with c/o severe wheezing, shortness of breath with no relief by home nebulizer treatments Covid positive Now on HD Found to have low plt count 80s-100s noted to have generalized petechiae, purpura rash, possible punch biopsy On vent now DATA REVIEWED BELOW Plts 131 Hct 24.7 AST 106 ALT 60 Creat 6.8 LDH 500 Retic 4.52% IMP: Thrombocytopenia secondary to covid infection or medication Hit negative this could be Hemolytic uremic syndrome "secondary to covid infection" (this is not TTP) ARF requiring HD Received plasma exchange for possible HUS (this is not TTP) 04/01/21 REC/PLAN: Transfuse 1 unit rbc whenever hct<23 Laboratory Last Values WBC 31.0 K/mm3 (4.5-11.0) H 04/02/21 04:00 Hgb 8.0 gm/dl (10.1-14.3) L 04/02/21 04:00 Hct 24.7 % (30.3-42.9) L 04/02/21 04:00 Plt Count 131 K/mm3 (140-440) L 04/02/21 04:00 PT 16.0 Sec. (12.2-14.9) H 04/02/21 04:00 INR 1.16 (0.87-1.13) H 04/02/21 04:00 APTT 29.5 Sec. (24.2-36.6) 04/02/21 04:00 Fibrinogen 248 mg/dl (211-480) 04/02/21 04:00 D-Dimer 2607.12 ng/mlDDU (0-234) H 03/30/21 04:00 Heparin Anti-Xa, Unfract TNR 03/22/21 08:20 Creatinine 6.8 mg/dL (0.6-1.2) H 04/02/21 05:00 AST 106 units/L (5-40) H 04/02/21 05:00 ALT 60 units/L (7-56) H 04/02/21 05:00 Alkaline Phosphatase 125 units/L (35-129) 04/02/21 05:00 Lactate Dehydrogenase 509 units/L (91-180) H 03/31/21 09:55 C-Reactive Protein 21.50 mg/dL (0.00-1.30) H 03/30/21 04:00 Coronavirus (PCR) Positive (Negative) A 03/14/21 Unknown Hepatitis A IgM Ab Non-reactive (NonReactive) 03/15/21 05:09 Hep Bs Antigen Nonreactive (Negative) 03/15/21 05:09 Hep B Core IgM Ab Non-reactive (NonReactive) 03/15/21 05:09 Hepatitis C Antibody Non-reactive (NonReactive) 03/15/21 05:09 Schistocytes Smear None seen 03/31/21 12:11 Blood Type O POSITIVE 03/25/21 13:45 Antibody Screen Negative 03/25/21 13:45 Direct Antiglob Test Negative 03/31/21 23:18 NIKOLE, Poly Interpret Negative 03/31/21 23:18 Crossmatch See Detail 03/25/21 13:45 Objective - Constitutional Vitals: Last Vital Signs Temp 98.4 F 04/02/21 07:33 Pulse 115 H 04/02/21 08:44 Resp 26 H 04/02/21 08:30 BP 114/44 04/02/21 08:44 Pulse Ox 100 04/02/21 08:44 - Labs Lab Results: Laboratory Results - last 24 hr 04/01/21 04/01/21 04/01/21 08:25 12:01 12:05 WBC RBC Hgb Hct MCV MCH MCHC RDW Plt Count PT INR APTT Fibrinogen ABG pH 7.225 L ABG pCO2 50.0 ABG pO2 76.4 L ABG HCO3 20.2 ABG O2 Saturation 92.2 L ABG O2 Content 19.3 ABG Base Excess -7.6 L ABG Hemoglobin 7.3 L ABG Carboxyhemoglobin 1.6 ABG Methemoglobin 0.6 Oxyhemoglobin 90.2 L FiO2 65 Sodium Potassium 5.9 H Chloride Carbon Dioxide Anion Gap BUN Creatinine Estimated GFR BUN/Creatinine Ratio Glucose POC Glucose 202 H Calcium Total Bilirubin AST ALT Alkaline Phosphatase Total Protein Albumin Albumin/Globulin Ratio Triglycerides 04/01/21 04/01/21 04/02/21 17:55 23:59 04:00 WBC 31.0 H RBC 2.93 L Hgb 8.0 L Hct 24.7 L MCV 84 MCH 27 L MCHC 33 RDW 19.2 H Plt Count 131 L PT INR APTT Fibrinogen ABG pH ABG pCO2 ABG pO2 ABG HCO3 ABG O2 Saturation ABG O2 Content ABG Base Excess ABG Hemoglobin ABG Carboxyhemoglobin ABG Methemoglobin Oxyhemoglobin FiO2 Sodium Potassium Chloride Carbon Dioxide Anion Gap BUN Creatinine Estimated GFR BUN/Creatinine Ratio Glucose POC Glucose 217 H 172 H Calcium Total Bilirubin AST ALT Alkaline Phosphatase Total Protein Albumin Albumin/Globulin Ratio Triglycerides 04/02/21 04/02/21 04/02/21 04:00 05:00 05:09 WBC RBC Hgb Hct MCV MCH MCHC RDW Plt Count PT 16.0 H INR 1.16 H APTT 29.5 Fibrinogen 248 ABG pH ABG pCO2 ABG pO2 ABG HCO3 ABG O2 Saturation ABG O2 Content ABG Base Excess ABG Hemoglobin ABG Carboxyhemoglobin ABG Methemoglobin Oxyhemoglobin FiO2 Sodium 135 L Potassium 5.3 H Chloride 96.1 L Carbon Dioxide 18 L Anion Gap 26 BUN 80 H Creatinine 6.8 H Estimated GFR 9 BUN/Creatinine Ratio 12 Glucose 174 H POC Glucose 148 H Calcium 7.7 L Total Bilirubin 0.50 AST 106 H ALT 60 H Alkaline Phosphatase 125 Total Protein 5.9 L Albumin 3.5 L Albumin/Globulin Ratio 1.5 Triglycerides 579 H Medications & Allergies - Medications Allergies/Adverse Reactions: Allergies oxycodone HCl [From Percocet] Allergy (Severe, Verified 03/30/21 14:01) Swelling hydrocodone bitartrate [From Vicodin] Allergy (Verified 03/31/21 08:20) Swelling ALLERGY TO TYLENOL VS OXYCODONE ACTIVE ORDER REMOVED FROM JUL SINCE UNABLE TO CONFIRM WITH FAMILY Home Medications: Home Medications Medication Instructions Recorded Confirmed Last Taken Type Chlorhexidine Mouthwash [Peridex] 15 ml MM BID #1 bottle 10/11/20 03/13/21 Unknown Rx Clindamycin [Clindamycin CAP] 300 mg PO Q8H #21 cap 10/11/20 03/13/21 Unknown Rx Naproxen 500 mg PO Q12H PRN #12 tablet 10/11/20 03/13/21 Unknown Rx Butalb/Acetamin/Caff 50-325-40 1 - 2 tab PO Q6HR PRN #15 tab 12/05/20 03/13/21 Unknown Rx [Fioricet 50-325-40] Famotidine [Pepcid] 20 mg PO BID #30 tablet 12/05/20 03/13/21 Unknown Rx Ketorolac [Toradol] 10 mg PO Q8H PRN #20 tablet 12/05/20 03/13/21 Unknown Rx Ondansetron [Zofran Odt] 4 mg PO Q6HR PRN #20 tab.rapdis 12/05/20 03/13/21 Unknown Rx Albuterol Sulfate [Proair 90 mcg IH Q4HR PRN #2 [email or web address] 01/01/21 03/13/21 Unknown Rx Respiclick] Mupirocin [Bactroban 2% OINT] 1 applic TP BID 7 Days #1 tube 01/01/21 03/13/21 Unknown Rx Triamcinolone Aceton 0.1% (Nf) 1 applic TP BID 14 Days #1 tube 01/01/21 03/13/21 Unknown Rx [Kenalog (NF)] predniSONE [Deltasone] 40 mg PO QDAY #8 tab 01/01/21 03/13/21 Unknown Rx Active Medications: Generic Name Dose Route Start Last Admin Trade Name Freq PRN Reason Stop Dose Admin Acetaminophen 650 mg 03/31/21 12:41 Acetaminophen 325 Mg/10.15 Ml Oral Liqd Unit Dose FEEDTUBE Q6H PRN TEMP >/=100.4 Albumin Human 25 gm 04/01/21 08:19 04/01/21 16:23 Albumin Human 25% (25 Gm/100 Ml) Inj IV 25 gm KARLOS PRN Administration Hypotension Albuterol 2.5 mg 03/19/21 00:53 Albuterol 2.5 Mg/3 Ml Nebu IH Q4HRT PRN Shortness Of Breath Albuterol/Ipratropium 1 ampul 03/19/21 08:00 04/02/21 08:43 Ipratropium/Albuterol Sulfate 3 Ml Ampul.Neb IH Not Given Q6HRT INESSA Lipase/Protease/Amylase 1 each 03/15/21 11:42 Lipase 10,500/Protease 25,000/Amylase 43,750 (Units) Dr White FEEDTUBE PRN PRN For Clogged Feeding Tube Apixaban 2.5 mg 03/29/21 13:00 04/01/21 21:10 Apixaban 2.5 Mg Tab PO 2.5 mg Q12HR INESSA Administration Protocol Ascorbic Acid 500 mg 03/14/21 22:00 04/01/21 21:10 Ascorbic Acid 500 Mg Tab PO 500 mg BID INESSA Administration Dextrose 50 ml 03/14/21 11:02 03/15/21 11:40 Dextrose 50% In Water (25gm) 50 Ml Syringe IV 50 ml Q30MIN PRN Administration Hypoglycemia Protocol Famotidine 10 mg 03/17/21 22:00 04/01/21 21:11 Famotidine 10 Mg Tab PO 10 mg BID INESSA Administration Fentanyl 50 mcg 03/15/21 10:43 03/28/21 09:25 Fentanyl 100 Mcg/2 Ml Inj IV 50 mcg Q10MIN PRN Administration ANALGESIA Hydrophilic Ointment 1 applic 03/14/21 17:50 Lip Therapy Vaseline TP Q2HR PRN Dry Lips Propofol 1,000 mg in 100 mls @ 4.123 mls/hr 03/15/21 11:00 04/02/21 08:18 Diprivan 10 Mg/Ml IV 40 mcg/kg/min TITR INESSA 32.985 mls/hr Administration Protocol 5 MCG/KG/MIN Fentanyl Citrate 2,000 mcg in 100 mls @ 6.872 mls/hr 03/15/21 11:00 04/02/21 08:20 Fentanyl Drip Premix IV 4 mcg/kg/hr TITR INESSA 27.488 mls/hr Administration Protocol 1 MCG/KG/HR Sodium Chloride 500 mls @ 1 mls/hr 03/16/21 17:19 Nacl 0.9% 500 Ml IV DIRECT PRN ARTERIAL LINE FLUSH NORepinephrine/NS 8 MG-250 ML 8 mg in 250 mls @ 3.75 mls/hr 03/23/21 11:00 04/02/21 08:21 Norepinephrine/Ns 8 Mg-250 Ml (Double Conc) IV 12 mcg/min TITRATE INESSA 22.5 mls/hr Administration Protocol 2 MCG/MIN Midazolam HCl 100 mg/ Sodium 100 mls @ 1 mls/hr 03/30/21 15:00 04/01/21 18:26 Chloride IV 3 mg/hr TITR INESSA 3 mls/hr Titration Protocol 1 MG/HR Vasopressin 20 unit/ Sodium 101 mls @ 9.09 mls/hr 03/30/21 20:00 04/01/21 23:57 Chloride IV 0.03 units/min TITR INESSA 9.09 mls/hr Administration 0.03 UNITS/MIN Phenylephrine HCl 100 mg/ 100 mls @ 3 mls/hr 03/31/21 04:00 04/01/21 21:07 Sodium Chloride IV 70 mcg/min TITR INESSA 4.2 mls/hr Administration Protocol 50 MCG/MIN Methylprednisolone Sodium 250 mls @ 250 mls/hr 03/31/21 09:00 04/01/21 09:29 Succinate 1,000 mg/ Sodium IV 04/02/21 09:59 250 mls/hr Chloride Q24H INESSA Administration Sodium Chloride 100 mls @ 999 mls/hr 04/01/21 08:19 Nacl 0.9% IV KARLOS PRN Hypotension Insulin Human Lispro 0 unit 03/14/21 12:00 04/02/21 05:23 Insulin Lispro 100 Unit/Ml SUB-Q Not Given Q6HR [facility] Protocol Lorazepam 1 mg 03/13/21 19:40 03/30/21 19:58 Lorazepam 2 Mg/Ml Vial IV 1 mg Q4H PRN Administration Anxiety Midazolam HCl 2 mg 03/30/21 14:19 03/30/21 14:30 Midazolam 2 Mg/2 Ml Inj IV 2 mg Q10MIN PRN Administration Sedation Multi-Ingred Cream/Lotion/Oil/Oint 1 applic 03/14/21 17:50 04/02/21 08:21 Mineral Oil/Petrolatum, White Ophth Oint 3.5 Gm OU 1 applic Q4HR PRN Administration Dry Eye(s) Ondansetron HCl 4 mg 03/13/21 19:30 03/21/21 12:05 Ondansetron 4 Mg/2 Ml Inj IV 4 mg Q8H PRN Administration Nausea And Vomiting Senna/Docusate Sodium 1 tab 03/14/21 22:00 04/01/21 21:13 Sennosides/Docusate Sodium 8.6/50 Mg Tab FEEDTUBE Not Given BID INESSA Simple Syrup 15 ml 03/15/21 11:42 Simple Syrup 15 Ml FEEDTUBE PRN PRN Hypoglycemia Simple Syrup 30 ml 03/15/21 11:42 Simple Syrup 15 Ml FEEDTUBE PRN PRN Hypoglycemia Sodium Bicarbonate 325 mg 03/15/21 11:42 03/21/21 17:21 Sodium Bicarbonate 325 Mg Tab FEEDTUBE 325 mg PRN PRN Administration For Clogged Feeding Tube Sodium Chloride 10 ml 03/13/21 22:00 04/01/21 21:14 Sodium Chloride 0.9% 10 Ml Flush Syringe IV 10 ml BID INESSA Administration Sodium Chloride 10 ml 03/13/21 19:30 Sodium Chloride 0.9% 10 Ml Flush Syringe IV PRN PRN LINE FLUSH Zinc Sulfate 220 mg 03/14/21 22:00 04/01/21 21:10 Zinc Sulfate 220 Mg Cap PO 220 mg BID INESSA Administration
--- NOTE | 2021-04-02 09:38 | Progress Note ---
Subjective Date of service: 04/02/21 Principal diagnosis: Ac hypoxemic resp failure; AE-Asthma; SAI; Crohn's; COVID- 19; Pneumonia Interval history: #Acute kidney injury: dialysis dependent s/p hd yesterday plans for HD prn as hemodynamics allow will follow up lytes Assess daily for needs for additional sessions as hemodynamics Strict input and output Avoid nephrotoxin Renally dose medications Keep MAP > 65 # Hyperkalemia, treat medically, attempt to controlled with HD #Respiratory failure Covid 19 infection currently intubated UF as tolerated with HD, limited by hemodynamic instability #Hyperphosphatemia to be monitored Dialysis has been initiated #Hyponatremia #diffuse rash--Hematology plans noted, plasma exchange noted #Overall prognosis remains poor, palliative care appropriate Subjective Principal diagnosis: Ac hypoxemic resp failure; AE-Asthma; SAI; Crohn's; COVID- 19; Pneumonia Interval history: Remains intubated. Objective - Exam exam deferred for preservation of PPE Objective - Vital Signs Vital signs: Vital Signs - 12hr 04/01/21 04/01/21 04/01/21 21:45 22:00 22:15 Temperature Pulse Rate 104 H 106 H 103 H Pulse Rate [ Anterior Bilateral Throughout] Pulse Rate [ From Monitor] Pulse Rate [ Throughout] Respiratory 24 24 21 Rate Respiratory Rate [Anterior Bilateral Throughout] Respiratory Rate [ Throughout] Blood Pressure 108/73 131/60 124/70 O2 Sat by Pulse 100 100 Oximetry 04/01/21 04/01/21 04/01/21 22:30 22:45 23:00 Temperature Pulse Rate 100 H 98 H 95 H Pulse Rate [ Anterior Bilateral Throughout] Pulse Rate [ From Monitor] Pulse Rate [ Throughout] Respiratory 21 19 18 Rate Respiratory Rate [Anterior Bilateral Throughout] Respiratory Rate [ Throughout] Blood Pressure 119/73 134/66 117/57 O2 Sat by Pulse 100 99 100 Oximetry 04/01/21 04/01/21 04/01/21 23:15 23:31 23:45 Temperature Pulse Rate 94 H 92 H 94 H Pulse Rate [ Anterior Bilateral Throughout] Pulse Rate [ From Monitor] Pulse Rate [ Throughout] Respiratory 18 17 18 Rate Respiratory Rate [Anterior Bilateral Throughout] Respiratory Rate [ Throughout] Blood Pressure 128/56 99/50 89/50 O2 Sat by Pulse 100 100 98 Oximetry 04/01/21 04/01/21 04/02/21 23:49 23:57 00:00 Temperature 97.2 F L Pulse Rate 93 H 93 H 94 H Pulse Rate [ Anterior Bilateral Throughout] Pulse Rate [ 104 H From Monitor] Pulse Rate [ Throughout] Respiratory 18 18 Rate Respiratory Rate [Anterior Bilateral Throughout] Respiratory Rate [ Throughout] Blood Pressure 110/53 89/50 100/58 O2 Sat by Pulse 100 100 100 Oximetry 04/02/21 04/02/21 04/02/21 00:15 00:30 00:45 Temperature Pulse Rate 92 H 91 H 91 H Pulse Rate [ Anterior Bilateral Throughout] Pulse Rate [ From Monitor] Pulse Rate [ Throughout] Respiratory 18 18 16 Rate Respiratory Rate [Anterior Bilateral Throughout] Respiratory Rate [ Throughout] Blood Pressure 101/54 91/44 84/47 O2 Sat by Pulse 100 100 99 Oximetry 04/02/21 04/02/21 04/02/21 01:00 01:15 01:30 Temperature Pulse Rate 90 90 90 Pulse Rate [ Anterior Bilateral Throughout] Pulse Rate [ From Monitor] Pulse Rate [ Throughout] Respiratory 15 16 16 Rate Respiratory Rate [Anterior Bilateral Throughout] Respiratory Rate [ Throughout] Blood Pressure 106/43 100/45 91/45 O2 Sat by Pulse 99 100 99 Oximetry 04/02/21 04/02/21 04/02/21 01:45 02:00 02:15 Temperature Pulse Rate 90 91 H 91 H Pulse Rate [ 109 H Anterior Bilateral Throughout] Pulse Rate [ From Monitor] Pulse Rate [ 108 H Throughout] Respiratory 15 14 14 Rate Respiratory 30 H Rate [Anterior Bilateral Throughout] Respiratory 30 H Rate [ Throughout] Blood Pressure 108/43 114/39 102/40 O2 Sat by Pulse 100 99 100 Oximetry 04/02/21 04/02/21 04/02/21 02:30 02:45 03:00 Temperature Pulse Rate 92 H 93 H 94 H Pulse Rate [ Anterior Bilateral Throughout] Pulse Rate [ From Monitor] Pulse Rate [ Throughout] Respiratory 17 17 18 Rate Respiratory Rate [Anterior Bilateral Throughout] Respiratory Rate [ Throughout] Blood Pressure 95/40 99/35 107/38 O2 Sat by Pulse 100 99 99 Oximetry 04/02/21 04/02/21 04/02/21 03:15 03:30 03:45 Temperature Pulse Rate 96 H 97 H 100 H Pulse Rate [ Anterior Bilateral Throughout] Pulse Rate [ From Monitor] Pulse Rate [ Throughout] Respiratory 18 25 H 18 Rate Respiratory Rate [Anterior Bilateral Throughout] Respiratory Rate [ Throughout] Blood Pressure 97/43 112/50 99/52 O2 Sat by Pulse 99 100 99 Oximetry 04/02/21 04/02/21 04/02/21 04:00 04:15 04:30 Temperature 98 F Pulse Rate 109 H 107 H 107 H Pulse Rate [ Anterior Bilateral Throughout] Pulse Rate [ From Monitor] Pulse Rate [ Throughout] Respiratory 31 H 29 H 25 H Rate Respiratory Rate [Anterior Bilateral Throughout] Respiratory Rate [ Throughout] Blood Pressure 104/45 113/47 103/65 O2 Sat by Pulse 99 100 100 Oximetry 04/02/21 04/02/21 04/02/21 04:45 05:00 05:15 Temperature Pulse Rate 106 H 106 H 107 H Pulse Rate [ Anterior Bilateral Throughout] Pulse Rate [ From Monitor] Pulse Rate [ Throughout] Respiratory 25 H 20 23 Rate Respiratory Rate [Anterior Bilateral Throughout] Respiratory Rate [ Throughout] Blood Pressure 110/54 116/47 111/49 O2 Sat by Pulse 99 99 Oximetry 04/02/21 04/02/21 04/02/21 05:30 05:45 06:00 Temperature Pulse Rate 107 H 109 H 110 H Pulse Rate [ Anterior Bilateral Throughout] Pulse Rate [ From Monitor] Pulse Rate [ Throughout] Respiratory 22 23 25 H Rate Respiratory Rate [Anterior Bilateral Throughout] Respiratory Rate [ Throughout] Blood Pressure 120/46 116/48 128/62 O2 Sat by Pulse 99 100 Oximetry 04/02/21 04/02/21 04/02/21 06:15 06:31 06:45 Temperature Pulse Rate 114 H 118 H 118 H Pulse Rate [ Anterior Bilateral Throughout] Pulse Rate [ From Monitor] Pulse Rate [ Throughout] Respiratory 26 H 30 H 30 H Rate Respiratory Rate [Anterior Bilateral Throughout] Respiratory Rate [ Throughout] Blood Pressure 122/59 111/76 115/42 O2 Sat by Pulse 97 99 94 Oximetry 04/02/21 04/02/21 04/02/21 07:01 07:15 07:30 Temperature Pulse Rate 120 H 117 H 116 H Pulse Rate [ Anterior Bilateral Throughout] Pulse Rate [ From Monitor] Pulse Rate [ Throughout] Respiratory 30 H 31 H 29 H Rate Respiratory Rate [Anterior Bilateral Throughout] Respiratory Rate [ Throughout] Blood Pressure 115/42 107/57 120/54 O2 Sat by Pulse 95 100 99 Oximetry 04/02/21 04/02/21 04/02/21 07:33 07:34 07:36 Temperature 98.4 F Pulse Rate 117 H Pulse Rate [ Anterior Bilateral Throughout] Pulse Rate [ 117 H From Monitor] Pulse Rate [ Throughout] Respiratory 30 H Rate Respiratory Rate [Anterior Bilateral Throughout] Respiratory Rate [ Throughout] Blood Pressure O2 Sat by Pulse 97 Oximetry 04/02/21 04/02/21 04/02/21 07:45 08:01 08:15 Temperature Pulse Rate 115 H 112 H 115 H Pulse Rate [ Anterior Bilateral Throughout] Pulse Rate [ From Monitor] Pulse Rate [ Throughout] Respiratory 27 H 25 H 26 H Rate Respiratory Rate [Anterior Bilateral Throughout] Respiratory Rate [ Throughout] Blood Pressure 118/45 99/44 108/47 O2 Sat by Pulse 100 100 Oximetry 04/02/21 04/02/21 08:30 08:44 Temperature Pulse Rate 119 H 115 H Pulse Rate [ Anterior Bilateral Throughout] Pulse Rate [ From Monitor] Pulse Rate [ Throughout] Respiratory 26 H Rate Respiratory Rate [Anterior Bilateral Throughout] Respiratory Rate [ Throughout] Blood Pressure 108/52 114/44 O2 Sat by Pulse 100 100 Oximetry - Lab 04/02/21 04:00 04/02/21 05:00 Most recent lab results ABG pH 7.225 pH Units (7.350-7.450) L 04/01/21 08:25 ABG pCO2 50.0 mm Hg 04/01/21 08:25 ABG pO2 76.4 mm Hg (80.0-90.0) L 04/01/21 08:25 ABG HCO3 20.2 mmol/L (20.0-26.0) 04/01/21 08:25 ABG O2 Saturation 92.2 % (95.0-99.0) L 04/01/21 08:25 Calcium 7.7 mg/dL (8.4-10.2) L 04/02/21 05:00 Phosphorus 8.20 mg/dL (2.5-4.5) H D 03/31/21 05:20 Magnesium 1.90 mg/dL (1.7-2.3) 03/31/21 05:20 Urine Creatinine 40.1 mg/dL (0.1-20.0) H 03/14/21 17:50 Urine Sodium 124 mmol/L 03/14/21 17:50 Medications & Allergies - Medications Allergies/Adverse Reactions: Allergies oxycodone HCl [From Percocet] Allergy (Severe, Verified 03/30/21 14:01) Swelling hydrocodone bitartrate [From Vicodin] Allergy (Verified 03/31/21 08:20) Swelling ALLERGY TO TYLENOL VS OXYCODONE ACTIVE ORDER REMOVED FROM [facility] SINCE UNABLE TO CONFIRM WITH FAMILY Home Medications: Home Medications Medication Instructions Recorded Confirmed Last Taken Type Chlorhexidine Mouthwash [Peridex] 15 ml MM BID #1 bottle 10/11/20 03/13/21 Unknown Rx Clindamycin [Clindamycin CAP] 300 mg PO Q8H #21 cap 10/11/20 03/13/21 Unknown Rx Naproxen 500 mg PO Q12H PRN #12 tablet 10/11/20 03/13/21 Unknown Rx Butalb/Acetamin/Caff 50-325-40 1 - 2 tab PO Q6HR PRN #15 tab 12/05/20 03/13/21 Unknown Rx [Fioricet 50-325-40] Famotidine [Pepcid] 20 mg PO BID #30 tablet 12/05/20 03/13/21 Unknown Rx Ketorolac [Toradol] 10 mg PO Q8H PRN #20 tablet 12/05/20 03/13/21 Unknown Rx Ondansetron [Zofran Odt] 4 mg PO Q6HR PRN #20 tab.rapdis 12/05/20 03/13/21 Unknown Rx Albuterol Sulfate [Proair 90 mcg IH Q4HR PRN #2 [email or web address] 01/01/21 03/13/21 Unknown Rx Respiclick] Mupirocin [Bactroban 2% OINT] 1 applic TP BID 7 Days #1 tube 01/01/21 03/13/21 Unknown Rx Triamcinolone Aceton 0.1% (Nf) 1 applic TP BID 14 Days #1 tube 01/01/21 03/13/21 Unknown Rx [Kenalog (NF)] predniSONE [Deltasone] 40 mg PO QDAY #8 tab 01/01/21 03/13/21 Unknown Rx Active Medications: Generic Name Dose Route Start Last Admin Trade Name Freq PRN Reason Stop Dose Admin Acetaminophen 650 mg 03/31/21 12:41 Acetaminophen 325 Mg/10.15 Ml Oral Liqd Unit Dose FEEDTUBE Q6H PRN TEMP >/=100.4 Albumin Human 25 gm 04/01/21 08:19 04/01/21 16:23 Albumin Human 25% (25 Gm/100 Ml) Inj IV 25 gm KARLOS PRN Administration Hypotension Albuterol 2.5 mg 03/19/21 00:53 Albuterol 2.5 Mg/3 Ml Nebu IH Q4HRT PRN Shortness Of Breath Albuterol/Ipratropium 1 ampul 03/19/21 08:00 04/02/21 08:43 Ipratropium/Albuterol Sulfate 3 Ml Ampul.Neb IH Not Given Q6HRT INESSA Lipase/Protease/Amylase 1 each 03/15/21 11:42 Lipase 10,500/Protease 25,000/Amylase 43,750 (Units) Dr Cap FEEDTUBE PRN PRN For Clogged Feeding Tube Apixaban 2.5 mg 03/29/21 13:00 04/01/21 21:10 Apixaban 2.5 Mg Tab PO 2.5 mg Q12HR INESSA Administration Protocol Ascorbic Acid 500 mg 03/14/21 22:00 04/01/21 21:10 Ascorbic Acid 500 Mg Tab PO 500 mg BID INESSA Administration Dextrose 50 ml 03/14/21 11:02 03/15/21 11:40 Dextrose 50% In Water (25gm) 50 Ml Syringe IV 50 ml Q30MIN PRN Administration Hypoglycemia Protocol Famotidine 10 mg 03/17/21 22:00 04/01/21 21:11 Famotidine 10 Mg Tab PO 10 mg BID INESSA Administration Fentanyl 50 mcg 03/15/21 10:43 03/28/21 09:25 Fentanyl 100 Mcg/2 Ml Inj IV 50 mcg Q10MIN PRN Administration ANALGESIA Hydrophilic Ointment 1 applic 03/14/21 17:50 Lip Therapy Vaseline TP Q2HR PRN Dry Lips Propofol 1,000 mg in 100 mls @ 4.123 mls/hr 03/15/21 11:00 04/02/21 08:18 Diprivan 10 Mg/Ml IV 40 mcg/kg/min TITR INESSA 32.985 mls/hr Administration Protocol 5 MCG/KG/MIN Fentanyl Citrate 2,000 mcg in 100 mls @ 6.872 mls/hr 03/15/21 11:00 04/02/21 08:20 Fentanyl Drip Premix IV 4 mcg/kg/hr TITR INESSA 27.488 mls/hr Administration Protocol 1 MCG/KG/HR Sodium Chloride 500 mls @ 1 mls/hr 03/16/21 17:19 Nacl 0.9% 500 Ml IV DIRECT PRN ARTERIAL LINE FLUSH NORepinephrine/NS 8 MG-250 ML 8 mg in 250 mls @ 3.75 mls/hr 03/23/21 11:00 04/02/21 08:21 Norepinephrine/Ns 8 Mg-250 Ml (Double Conc) IV 12 mcg/min TITRATE INESSA 22.5 mls/hr Administration Protocol 2 MCG/MIN Midazolam HCl 100 mg/ Sodium 100 mls @ 1 mls/hr 03/30/21 15:00 04/01/21 18:26 Chloride IV 3 mg/hr TITR INESSA 3 mls/hr Titration Protocol 1 MG/HR Vasopressin 20 unit/ Sodium 101 mls @ 9.09 mls/hr 03/30/21 20:00 04/01/21 23 :57 Chloride IV 0.03 units/min TITR INESSA 9.09 mls/hr Administration 0.03 UNITS/MIN Phenylephrine HCl 100 mg/ 100 mls @ 3 mls/hr 03/31/21 04:00 04/01/21 21:07 Sodium Chloride IV 70 mcg/min TITR INESSA 4.2 mls/hr Administration Protocol 50 MCG/MIN Methylprednisolone Sodium 250 mls @ 250 mls/hr 03/31/21 09:00 04/01/21 09:29 Succinate 1,000 mg/ Sodium IV 04/02/21 09:59 250 mls/hr Chloride Q24H INESSA Administration Sodium Chloride 100 mls @ 999 mls/hr 04/01/21 08:19 Nacl 0.9% IV KARLOS PRN Hypotension Insulin Human Lispro 0 unit 03/14/21 12:00 04/02/21 05:23 Insulin Lispro 100 Unit/Ml SUB-Q Not Given Q6HR [facility] Protocol Lorazepam 1 mg 03/13/21 19:40 03/30/21 19:58 Lorazepam 2 Mg/Ml Vial IV 1 mg Q4H PRN Administration Anxiety Midazolam HCl 2 mg 03/30/21 14:19 03/30/21 14:30 Midazolam 2 Mg/2 Ml Inj IV 2 mg Q10MIN PRN Administration Sedation Multi-Ingred Cream/Lotion/Oil/Oint 1 applic 03/14/21 17:50 04/02/21 08:21 Mineral Oil/Petrolatum, White Ophth Oint 3.5 Gm OU 1 applic Q4HR PRN Administration Dry Eye(s) Ondansetron HCl 4 mg 03/13/21 19:30 03/21/21 12:05 Ondansetron 4 Mg/2 Ml Inj IV 4 mg Q8H PRN Administration Nausea And Vomiting Senna/Docusate Sodium 1 tab 03/14/21 22:00 04/01/21 21:13 Sennosides/Docusate Sodium 8.6/50 Mg Tab FEEDTUBE Not Given BID INESSA Simple Syrup 15 ml 03/15/21 11:42 Simple Syrup 15 Ml FEEDTUBE PRN PRN Hypoglycemia Simple Syrup 30 ml 03/15/21 11:42 Simple Syrup 15 Ml FEEDTUBE PRN PRN Hypoglycemia Sodium Bicarbonate 325 mg 03/15/21 11:42 03/21/21 17:21 Sodium Bicarbonate 325 Mg Tab FEEDTUBE 325 mg PRN PRN Administration For Clogged Feeding Tube Sodium Chloride 10 ml 03/13/21 22:00 04/01/21 21:14 Sodium Chloride 0.9% 10 Ml Flush Syringe IV 10 ml BID INESSA Administration Sodium Chloride 10 ml 03/13/21 19:30 Sodium Chloride 0.9% 10 Ml Flush Syringe IV PRN PRN LINE FLUSH Zinc Sulfate 220 mg 03/14/21 22:00 04/01/21 21:10 Zinc Sulfate 220 Mg Cap PO 220 mg BID INESSA Administration
[2021-04-02] MEDS: ZINC SULFATE 220 MG CAP PO SCH ×2 (09:55→21:55)
[2021-04-02] MEDS: methylPREDNISolone Sod Suc 1,000 MG in SODIUM CHLORIDE 0.9% 250ML 250 ML IV SCH (09:55)
[2021-04-02] MEDS: APIXABAN 2.5 MG TAB PO SCH ×2 (09:55→21:53)
[2021-04-02] MEDS: FAMOTIDINE 10 MG TAB PO SCH ×2 (09:55→21:53)
[2021-04-02] MEDS: SENNOSIDES/DOCUSATE SODIUM 8.6/50 MG TAB FEEDTUBE SCH ×2 (09:56→21:53)
[2021-04-02] MEDS: ASCORBIC ACID 500 MG TAB PO SCH ×2 (09:56→21:53)
--- NOTE | 2021-04-02 10:34 | Progress Note ---
Assessment and Plan Cultures: SARS CoV2 PCR: Positive 03/13/2021 blood culture: No growth Resp cultures 03/14/2021: MSSA 03/23/2021 blood culture: No growth 03/23/2021 sputum culture: Usual respiratory maury 03/29/2021 blood culture: no growth A/P: 31-year-old female with asthma, morbid obesity, Crohn's disease admitted with cough and shortness of breath: #Septic shock: completed abx. #Bilateral pneumonia: Secondary to COVID-19. Severe disease, then developed MSSA in the lungs. D-dimer very high initially, which has shown improvement. #Acute hypoxic respiratory failure: on the vent. #Diffuse rash: Question of drug reaction, now off Cefepime. #Possible HUS: plasma exchange, high-dose pulse steroids per hematology. #Acute renal failure: progressive. Nephrology following, initiated HD. #Acute asthma exacerbation #Morbid obesity Recs: -s/p Actemra 03/15/2021, completed steroids for COVID -Now on pulse steroids and plasma exchange per hematology -continue off abx, avoid further beta-lactams given concern for allergic reaction -poor prognosis Donn Solano MD, FACP, [facility] O: [phone] F: [phone] Subjective Date of service: 04/02/21 Principal diagnosis: Ac hypoxemic resp failure; AE-Asthma; SAI; Crohn's; COVID- 19; Pneumonia Interval history: Remains on the vent. On multiple pressors. Also on high-dose pulse steroids. Underwent plasma exchange yesterday. Objective - Exam Narrative Exam: Physical Exam (reviewed in chart to minimize risk of transmission) Constitutional: deferred Head, Ears, Nose: deferred Eyes: deferred Neck: deferred Oral: deferred Cardiovascular: deferred Respiratory: deferred GI: deferred Musculoskeletal: deferred Skin: deferred Hem/Lymphatic: deferred Psych: deferred Neurological: deferred - Constitutional Vitals: Vital Signs Temp Pulse Resp BP Pulse Ox 98.4 F 115 H 26 H 114/44 100 04/02/21 07:33 04/02/21 08:44 04/02/21 08:30 04/02/21 08:44 04/02/21 08:44 Temperature -Last 24 Hours Temperature 98.4 F Temperature 98 F Temperature 97.2 F Temperature 99.9 F Temperature 99.3 F Temperature 98.2 F Temperature 97.6 F Temperature 37.6 F Temperature 99.1 F - Labs CBC & Chem 7: 04/02/21 04:00 04/02/21 05:00 Labs: Abnormal lab results 04/01/21 04/01/21 04/01/21 Range/Units 12:01 12:05 17:55 WBC (4.5-11.0) K/mm3 RBC (3.65-5.03) M/mm3 Hgb (10.1-14.3) gm/dl Hct (30.3-42.9) % MCH (28-32) pg RDW (13.2-15.2) % Plt Count (140-440) K/mm3 PT (12.2-14.9) Sec. INR (0.87-1.13) ABG pH (7.320-7.450) POC ABG pCO2 (32.0-48.0) mmHg POC ABG pO2 (83-108) mmHg ABG Hemoglobin (12.0-17.5) ABG Potassium (3.40-4.50) mmol/L ABG Chloride (98-107) mmol/L ABG Glucose (65-95) mg/dL Carboxyhemoglobin (0.5-1.5) Sodium (137-145) mmol/L Potassium 5.9 H (3.6-5.0) mmol/L Chloride (98-107) mmol/L Carbon Dioxide (22-30) mmol/L BUN (7-17) mg/dL Creatinine (0.6-1.2) mg/dL Glucose (65-100) mg/dL POC Glucose 202 H 217 H (70-105) mg/dL Calcium (8.4-10.2) mg/dL AST (5-40) units/L ALT (7-56) units/L Total Protein (6.3-8.2) g/dL Albumin (3.9-5) g/dL Triglycerides (2-149) mg/dL Arterial Blood Glucose (65-95) mg/dL Arterial Blood Ionized Calcium (4.6-5.3) mg/dL 04/01/21 04/02/21 04/02/21 Range/Units 23:59 04:00 04:00 WBC 31.0 H (4.5-11.0) K/mm3 RBC 2.93 L (3.65-5.03) M/mm3 Hgb 8.0 L (10.1-14.3) gm/dl Hct 24.7 L (30.3-42.9) % MCH 27 L (28-32) pg RDW 19.2 H (13.2-15.2) % Plt Count 131 L (140-440) K/mm3 PT 16.0 H (12.2-14.9) Sec. INR 1.16 H (0.87-1.13) ABG pH (7.320-7.450) POC ABG pCO2 (32.0-48.0) mmHg POC ABG pO2 (83-108) mmHg ABG Hemoglobin (12.0-17.5) ABG Potassium (3.40-4.50) mmol/L ABG Chloride (98-107) mmol/L ABG Glucose (65-95) mg/dL Carboxyhemoglobin (0.5-1.5) Sodium (137-145) mmol/L Potassium (3.6-5.0) mmol/L Chloride (98-107) mmol/L Carbon Dioxide (22-30) mmol/L BUN (7-17) mg/dL Creatinine (0.6-1.2) mg/dL Glucose (65-100) mg/dL POC Glucose 172 H (70-105) mg/dL Calcium (8.4-10.2) mg/dL AST (5-40) units/L ALT (7-56) units/L Total Protein (6.3-8.2) g/dL Albumin (3.9-5) g/dL Triglycerides (2-149) mg/dL Arterial Blood Glucose (65-95) mg/dL Arterial Blood Ionized Calcium (4.6-5.3) mg/dL 04/02/21 04/02/21 04/02/21 Range/Units 05:00 05:09 08:55 WBC (4.5-11.0) K/mm3 RBC (3.65-5.03) M/mm3 Hgb (10.1-14.3) gm/dl Hct (30.3-42.9) % MCH (28-32) pg RDW (13.2-15.2) % Plt Count (140-440) K/mm3 PT (12.2-14.9) Sec. INR (0.87-1.13) ABG pH 7.188 L (7.320-7.450) POC ABG pCO2 58.3 H (32.0-48.0) mmHg POC ABG pO2 132.8 H (83-108) mmHg ABG Hemoglobin 8.4 L (12.0-17.5) ABG Potassium 5.0 H (3.40-4.50) mmol/L ABG Chloride 97.0 L (98-107) mmol/L ABG Glucose 156 H (65-95) mg/dL Carboxyhemoglobin 0.4 L (0.5-1.5) Sodium 135 L (137-145) mmol/L Potassium 5.3 H (3.6-5.0) mmol/L Chloride 96.1 L (98-107) mmol/L Carbon Dioxide 18 L (22-30) mmol/L BUN 80 H (7-17) mg/dL Creatinine 6.8 H (0.6-1.2) mg/dL Glucose 174 H (65-100) mg/dL POC Glucose 148 H (70-105) mg/dL Calcium 7.7 L (8.4-10.2) mg/dL AST 106 H (5-40) units/L ALT 60 H (7-56) units/L Total Protein 5.9 L (6.3-8.2) g/dL Albumin 3.5 L (3.9-5) g/dL Triglycerides 579 H (2-149) mg/dL Arterial Blood Glucose 156 H (65-95) mg/dL Arterial Blood Ionized Calcium 4.2 L (4.6-5.3) mg/dL
[2021-04-02] MEDS: VASOPRESSIN 20 UNIT in SODIUM CHLORIDE 0.9% 100 ML IV SCH ×2 (12:06→22:39)
[2021-04-02] MEDS ORDERED: ALBUMIN HUMAN 5% (25 GM/500 ML) INJ IV ONE (12:28)
--- NOTE | 2021-04-02 13:27 | Progress Note ---
Assessment and Plan Acute hypoxemic respiratory failure Acute asthma exacerbation Morbid obesity Crohn's disease Metabolic acidosis Acute kidney injury Coronavirus infection Pneumonia (CAP) Oropharyngeal dysphagia Obesity, if not mentioned above (Taheerah will need a tracheostomy once more stable) - increased minute volumes re: increased inspiratory pressure to 25 cm H2O (getting TV's 500-550 ml's) - repeat ABG at 9pm and address - for plasma exchange again today - remains on cooling blanket - prognosis guarded but ARDS numbers improved overall - continue to wean vasopressors for target MAP > 65 mmHg - continue care as below otherwise; - nephrology input appreciated; HD/UF for toxin and volume clearance - HD/UF sessions per nephrology prescription - continue Daily SAT and SBT assessment as tolerated - continue to wean supplemental oxygen for target O2 sat's > 90% acutely - VAP bundle addressed - continue lung protective strategies - continue bronchodilators with pulmonary hygiene per RT - wean per pulmonary driven protocols otherwise - continue accuchecks with glycemic control per SSI (While critically ill target blood glucose of 140-180 mg/dL; avoid hypoglycemia) - sedation prn for target RASS 0 to -1 - avoid nephrotoxins, renally dose all medications - continue to avoid benzodiazepine's, reduce the possibility of delirium - AB's per ID rec's (Cefepime) - prn analgesia per CPOT score - Maintenance of sleep-wake cycle, avoid delirium - continue enteral nutritional support at goal rate as tolerated - G.I. & VTE prophylaxis - PT/OT/ROM exercises - continue mobility protocols for pressure ulcer prophylaxis - Monitor hemodynamics closely - continue other care per attending / other consultants - discharge planning ongoing concurrently COVID SPECIFIC INTERVENTIONS - Actemra ordered if available - Remdesivir as per ID/Pulmonary developed protocols (not a candidate) - continue systemic steroids for severe COVID-19 infection empirically - follow repeat COVID tests results - zinc and vitamin C supplementation - Monitor inflammatory markers per facility protocol - ferritin, Ddimer, CRP - therapeutic anticoagulation per system Protocol based on d-dimer and clinical considerations (VTE prophylaxis) - Continue contact and airborne isolation .... Re-evaluate in am & prn CONDITION: CRITICAL PROGNOSIS: GUARDED CODE STATUS: FULL CODE The high probability of a clinically significant, sudden or life-threatening deterioration of the [respiratory, cardiovascular, renal & neurologic] system(s) required my full and direct attention, intervention and personal management. The aggregate critical care time was [32] minutes without overlap. Time includes spent on; [x] Data Review and interpretation [x] Patient assessment and monitoring of vital signs [x] Documentation [x] Medication orders and management Subjective Date of service: 04/02/21 Principal diagnosis: Ac hypoxemic resp failure; AE-Asthma; SAI; Crohn's; COVID- 19; Pneumonia Interval history: Patient is seen today for: Acute hypoxemic respiratory failure; AE-Asthma; SAI; Crohn's disease; COVID-19 infection; Pneumonia (CAP) Seen and examined at bedside; 24hour events reviewed; nursing and respiratory care staff consulted; no adverse overnight events reported to me; resting in bed; remains on MVS; still acidotic with a permissive hypercapnia component but minute ventilation already set high; rash is stable; tolerated plasma exchange session Objective Vital Signs - 12hr 04/02/21 04/02/21 04/02/21 01:30 01:45 02:00 Temperature Pulse Rate 90 90 91 H Pulse Rate [ 109 H Anterior Bilateral Throughout] Pulse Rate [ From Monitor] Pulse Rate [ 108 H Throughout] Respiratory 16 15 14 Rate Respiratory 30 H Rate [Anterior Bilateral Throughout] Respiratory 30 H Rate [ Throughout] Blood Pressure 91/45 108/43 114/39 O2 Sat by Pulse 99 100 99 Oximetry 04/02/21 04/02/21 04/02/21 02:15 02:30 02:45 Temperature Pulse Rate 91 H 92 H 93 H Pulse Rate [ Anterior Bilateral Throughout] Pulse Rate [ From Monitor] Pulse Rate [ Throughout] Respiratory 14 17 17 Rate Respiratory Rate [Anterior Bilateral Throughout] Respiratory Rate [ Throughout] Blood Pressure 102/40 95/40 99/35 O2 Sat by Pulse 100 100 99 Oximetry 04/02/21 04/02/21 04/02/21 03:00 03:15 03:30 Temperature Pulse Rate 94 H 96 H 97 H Pulse Rate [ Anterior Bilateral Throughout] Pulse Rate [ From Monitor] Pulse Rate [ Throughout] Respiratory 18 18 25 H Rate Respiratory Rate [Anterior Bilateral Throughout] Respiratory Rate [ Throughout] Blood Pressure 107/38 97/43 112/50 O2 Sat by Pulse 99 99 100 Oximetry 04/02/21 04/02/21 04/02/21 03:45 04:00 04:15 Temperature 98 F Pulse Rate 100 H 109 H 107 H Pulse Rate [ Anterior Bilateral Throughout] Pulse Rate [ From Monitor] Pulse Rate [ Throughout] Respiratory 18 31 H 29 H Rate Respiratory Rate [Anterior Bilateral Throughout] Respiratory Rate [ Throughout] Blood Pressure 99/52 104/45 113/47 O2 Sat by Pulse 99 99 100 Oximetry 04/02/21 04/02/21 04/02/21 04:30 04:45 05:00 Temperature Pulse Rate 107 H 106 H 106 H Pulse Rate [ Anterior Bilateral Throughout] Pulse Rate [ From Monitor] Pulse Rate [ Throughout] Respiratory 25 H 25 H 20 Rate Respiratory Rate [Anterior Bilateral Throughout] Respiratory Rate [ Throughout] Blood Pressure 103/65 110/54 116/47 O2 Sat by Pulse 100 99 Oximetry 04/02/21 04/02/21 04/02/21 05:15 05:30 05:45 Temperature Pulse Rate 107 H 107 H 109 H Pulse Rate [ Anterior Bilateral Throughout] Pulse Rate [ From Monitor] Pulse Rate [ Throughout] Respiratory 23 22 23 Rate Respiratory Rate [Anterior Bilateral Throughout] Respiratory Rate [ Throughout] Blood Pressure 111/49 120/46 116/48 O2 Sat by Pulse 99 99 Oximetry 04/02/21 04/02/21 04/02/21 06:00 06:15 06:31 Temperature Pulse Rate 110 H 114 H 118 H Pulse Rate [ Anterior Bilateral Throughout] Pulse Rate [ From Monitor] Pulse Rate [ Throughout] Respiratory 25 H 26 H 30 H Rate Respiratory Rate [Anterior Bilateral Throughout] Respiratory Rate [ Throughout] Blood Pressure 128/62 122/59 111/76 O2 Sat by Pulse 100 97 99 Oximetry 04/02/21 04/02/21 04/02/21 06:45 07:01 07:15 Temperature Pulse Rate 118 H 120 H 117 H Pulse Rate [ Anterior Bilateral Throughout] Pulse Rate [ From Monitor] Pulse Rate [ Throughout] Respiratory 30 H 30 H 31 H Rate Respiratory Rate [Anterior Bilateral Throughout] Respiratory Rate [ Throughout] Blood Pressure 115/42 115/42 107/57 O2 Sat by Pulse 94 95 100 Oximetry 04/02/21 04/02/21 04/02/21 07:30 07:33 07:34 Temperature 98.4 F Pulse Rate 116 H 117 H Pulse Rate [ Anterior Bilateral Throughout] Pulse Rate [ From Monitor] Pulse Rate [ Throughout] Respiratory 29 H Rate Respiratory Rate [Anterior Bilateral Throughout] Respiratory Rate [ Throughout] Blood Pressure 120/54 O2 Sat by Pulse 99 Oximetry 04/02/21 04/02/21 04/02/21 07:36 07:45 08:01 Temperature Pulse Rate 115 H 112 H Pulse Rate [ Anterior Bilateral Throughout] Pulse Rate [ 117 H From Monitor] Pulse Rate [ Throughout] Respiratory 30 H 27 H 25 H Rate Respiratory Rate [Anterior Bilateral Throughout] Respiratory Rate [ Throughout] Blood Pressure 118/45 99/44 O2 Sat by Pulse 97 100 Oximetry 04/02/21 04/02/21 04/02/21 08:15 08:30 08:44 Temperature Pulse Rate 115 H 119 H 115 H Pulse Rate [ Anterior Bilateral Throughout] Pulse Rate [ From Monitor] Pulse Rate [ Throughout] Respiratory 26 H 26 H Rate Respiratory Rate [Anterior Bilateral Throughout] Respiratory Rate [ Throughout] Blood Pressure 108/47 108/52 114/44 O2 Sat by Pulse 100 100 100 Oximetry 04/02/21 04/02/21 04/02/21 08:45 09:00 09:15 Temperature Pulse Rate 114 H 117 H 117 H Pulse Rate [ Anterior Bilateral Throughout] Pulse Rate [ From Monitor] Pulse Rate [ Throughout] Respiratory 26 H 29 H 29 H Rate Respiratory Rate [Anterior Bilateral Throughout] Respiratory Rate [ Throughout] Blood Pressure 114/44 108/52 115/45 O2 Sat by Pulse 100 100 99 Oximetry 04/02/21 04/02/21 04/02/21 09:31 09:45 10:01 Temperature Pulse Rate 120 H 124 H 123 H Pulse Rate [ Anterior Bilateral Throughout] Pulse Rate [ From Monitor] Pulse Rate [ Throughout] Respiratory 33 H 38 H 32 H Rate Respiratory Rate [Anterior Bilateral Throughout] Respiratory Rate [ Throughout] Blood Pressure 104/45 104/45 111/40 O2 Sat by Pulse 98 98 100 Oximetry 04/02/21 04/02/21 04/02/21 10:15 10:30 10:39 Temperature Pulse Rate 120 H 118 H 119 H Pulse Rate [ Anterior Bilateral Throughout] Pulse Rate [ From Monitor] Pulse Rate [ Throughout] Respiratory 29 H 27 H Rate Respiratory Rate [Anterior Bilateral Throughout] Respiratory Rate [ Throughout] Blood Pressure 102/45 100/47 100/44 O2 Sat by Pulse 100 99 99 Oximetry 04/02/21 04/02/21 04/02/21 10:45 11:00 11:15 Temperature Pulse Rate 116 H 115 H 121 H Pulse Rate [ Anterior Bilateral Throughout] Pulse Rate [ From Monitor] Pulse Rate [ Throughout] Respiratory 22 27 H 30 H Rate Respiratory Rate [Anterior Bilateral Throughout] Respiratory Rate [ Throughout] Blood Pressure 101/43 104/50 117/52 O2 Sat by Pulse 100 98 99 Oximetry 04/02/21 04/02/21 04/02/21 11:21 11:30 11:45 Temperature 97.8 F Pulse Rate 118 H 118 H Pulse Rate [ Anterior Bilateral Throughout] Pulse Rate [ From Monitor] Pulse Rate [ Throughout] Respiratory 27 H 27 H Rate Respiratory Rate [Anterior Bilateral Throughout] Respiratory Rate [ Throughout] Blood Pressure 118/55 112/47 O2 Sat by Pulse 96 95 Oximetry 04/02/21 04/02/21 04/02/21 12:00 12:15 12:31 Temperature Pulse Rate 120 H 117 H 115 H Pulse Rate [ Anterior Bilateral Throughout] Pulse Rate [ 118 H From Monitor] Pulse Rate [ Throughout] Respiratory 26 H 25 H 24 Rate Respiratory Rate [Anterior Bilateral Throughout] Respiratory Rate [ Throughout] Blood Pressure 96/50 93/69 102/56 O2 Sat by Pulse 98 98 100 Oximetry 04/02/21 04/02/21 04/02/21 12:45 12:47 13:00 Temperature Pulse Rate 115 H 115 H 113 H Pulse Rate [ Anterior Bilateral Throughout] Pulse Rate [ From Monitor] Pulse Rate [ Throughout] Respiratory 27 H 27 H Rate Respiratory Rate [Anterior Bilateral Throughout] Respiratory Rate [ Throughout] Blood Pressure 105/57 105/57 114/54 O2 Sat by Pulse 100 99 100 Oximetry Constitutional: appears uncomfortable, other (morbidly obese female with mild ventilator dyssynchrony) Eyes: non-icteric, other (scleral erythema / bleeding is improving) ENT: oropharynx moist, other (ETT 25 cm BALJINDER) Neck: supple, no lymphadenopathy, no JVD, other (large circumference) Effort: mildly labored Ascultation: Bilateral: diminished breath sounds, rhonchi Percussion: Bilateral: not dull Cardiovascular: regular rate and rhythm Gastrointestinal: normoactive bowel sounds, soft, non-tender, non-distended (protuberant) Integumentary: rash ( ), other Extremities: no cyanosis, pulses normal, no ischemia or petechiae, edema (trace peripheral) Neurologic: non-focal exam (grossly), pupils equal and round, CN II-XII normal, motor strength normal and, other (moves all extremities spontaneously) Psychiatric: other (unasble to assess) CBC and BMP: 04/03/21 04:30 04/03/21 04:30 ABG, PT/INR, D-dimer: ABG ABG pH 7.188 (7.320-7.450) L 04/02/21 08:55 POC ABG pCO2 58.3 mmHg (32.0-48.0) H 04/02/21 08:55 ABG pCO2 50.0 mm Hg 04/01/21 08:25 POC ABG pO2 132.8 mmHg (83-108) H 04/02/21 08:55 ABG pO2 76.4 mm Hg (80.0-90.0) L 04/01/21 08:25 POC ABG HCO3 21.7 04/02/21 08:55 ABG O2 Saturation 98.0 (0-100) 04/02/21 08:55 PT/INR, D-dimer PT 16.0 Sec. (12.2-14.9) H 04/02/21 04:00 INR 1.16 (0.87-1.13) H 04/02/21 04:00 D-Dimer 2607.12 ng/mlDDU (0-234) H 03/30/21 04:00 Abnormal lab findings: Abnormal Labs 03/13/21 03/13/21 03/13/21 13:26 13:26 15:40 WBC RBC Hgb Hct MCH 27 L RDW 17.0 H Plt Count Lymph % (Auto) Wayne # (Auto) Eos # (Auto) Seg Neutrophils % Seg Neutrophils # Percent Retic PT INR Fibrinogen D-Dimer ABG pH POC ABG pCO2 POC ABG pO2 ABG pO2 ABG HCO3 ABG O2 Saturation ABG Base Excess ABG Hemoglobin ABG Oxyhemoglobin ABG Sodium ABG Potassium ABG Chloride ABG Glucose Oxyhemoglobin Carboxyhemoglobin Sodium 136 L Potassium Chloride Carbon Dioxide BUN Creatinine Glucose 125 H 130 H POC Glucose Hemoglobin A1c Calcium Phosphorus Magnesium AST ALT Alkaline Phosphatase Lactate Dehydrogenase 235 H C-Reactive Protein 4.30 H Total Protein Albumin Triglycerides Arterial Blood Glucose Arterial Blood Ionized Calcium Urine Creatinine Random Vancomycin Coronavirus (PCR) Crossmatch 03/13/21 03/14/21 03/14/21 21:33 03:35 06:21 WBC 20.0 H RBC Hgb Hct MCH 27 L RDW 17.5 H Plt Count Lymph % (Auto) 7.8 L Wayne # (Auto) 1.3 H Eos # (Auto) Seg Neutrophils % 85.4 H Seg Neutrophils # 17.1 H Percent Retic PT INR Fibrinogen D-Dimer ABG pH 7.323 L 7.234 L POC ABG pCO2 POC ABG pO2 ABG pO2 69.8 L ABG HCO3 ABG O2 Saturation 92.9 L 94.9 L ABG Base Excess -3.3 L -5.4 L ABG Hemoglobin ABG Oxyhemoglobin ABG Sodium ABG Potassium ABG Chloride ABG Glucose Oxyhemoglobin 91.2 L 93.2 L Carboxyhemoglobin Sodium Potassium Chloride Carbon Dioxide BUN Creatinine Glucose POC Glucose Hemoglobin A1c Calcium Phosphorus Magnesium AST ALT Alkaline Phosphatase Lactate Dehydrogenase C-Reactive Protein Total Protein Albumin Triglycerides Arterial Blood Glucose Arterial Blood Ionized Calcium Urine Creatinine Random Vancomycin Coronavirus (PCR) Crossmatch 03/14/21 03/14/21 03/14/21 06:21 07:47 11:21 WBC RBC Hgb Hct MCH RDW Plt Count Lymph % (Auto) Wayne # (Auto) Eos # (Auto) Seg Neutrophils % Seg Neutrophils # Percent Retic PT INR Fibrinogen D-Dimer ABG pH POC ABG pCO2 POC ABG pO2 ABG pO2 ABG HCO3 ABG O2 Saturation ABG Base Excess ABG Hemoglobin ABG Oxyhemoglobin ABG Sodium ABG Potassium ABG Chloride ABG Glucose Oxyhemoglobin Carboxyhemoglobin Sodium 136 L 136 L Potassium 6.2 H* D 5.4 H Chloride Carbon Dioxide 21 L 21 L BUN Creatinine 1.5 H D 1.8 H Glucose 144 H 141 H POC Glucose 147 H Hemoglobin A1c Calcium Phosphorus Magnesium AST ALT Alkaline Phosphatase Lactate Dehydrogenase C-Reactive Protein Total Protein 8.7 H 9.2 H Albumin 3.8 L Triglycerides Arterial Blood Glucose Arterial Blood Ionized Calcium Urine Creatinine Random Vancomycin Coronavirus (PCR) Crossmatch 03/14/21 03/14/21 03/14/21 17:29 17:50 18:35 WBC RBC Hgb Hct MCH RDW Plt Count Lymph % (Auto) Wayne # (Auto) Eos # (Auto) Seg Neutrophils % Seg Neutrophils # Percent Retic PT INR Fibrinogen D-Dimer ABG pH POC ABG pCO2 POC ABG pO2 ABG pO2 ABG HCO3 ABG O2 Saturation ABG Base Excess ABG Hemoglobin ABG Oxyhemoglobin ABG Sodium ABG Potassium ABG Chloride ABG Glucose Oxyhemoglobin Carboxyhemoglobin Sodium 135 L Potassium 6.4 H* Chloride Carbon Dioxide 15 L BUN 26 H Creatinine 3.4 H D Glucose 165 H POC Glucose 209 H Hemoglobin A1c Calcium Phosphorus Magnesium AST ALT Alkaline Phosphatase Lactate Dehydrogenase C-Reactive Protein Total Protein Albumin Triglycerides Arterial Blood Glucose Arterial Blood Ionized Calcium Urine Creatinine 40.1 H Random Vancomycin Coronavirus (PCR) Crossmatch 03/14/21 03/14/21 03/14/21 18:46 22:23 23:52 WBC RBC Hgb Hct MCH RDW Plt Count Lymph % (Auto) Wayne # (Auto) Eos # (Auto) Seg Neutrophils % Seg Neutrophils # Percent Retic PT INR Fibrinogen D-Dimer ABG pH 7.270 L POC ABG pCO2 POC ABG pO2 63.4 L ABG pO2 ABG HCO3 ABG O2 Saturation ABG Base Excess ABG Hemoglobin ABG Oxyhemoglobin 90.2 L ABG Sodium 134.9 L ABG Potassium 5.3 H ABG Chloride ABG Glucose 134 H Oxyhemoglobin Carboxyhemoglobin Sodium 136 L Potassium 5.2 H Chloride Carbon Dioxide 20 L BUN 29 H Creatinine 3.6 H Glucose 236 H POC Glucose 128 H Hemoglobin A1c Calcium Phosphorus Magnesium AST ALT Alkaline Phosphatase Lactate Dehydrogenase C-Reactive Protein Total Protein Albumin 3.2 L Triglycerides Arterial Blood Glucose 134 H Arterial Blood Ionized Calcium Urine Creatinine Random Vancomycin Coronavirus (PCR) Crossmatch 03/14/21 03/15/21 03/15/21 Unknown 05:00 05:09 WBC 22.5 H RBC Hgb Hct MCH 27 L RDW 17.6 H Plt Count Lymph % (Auto) Wayne # (Auto) Eos # (Auto) Seg Neutrophils % Seg Neutrophils # Percent Retic PT INR Fibrinogen D-Dimer ABG pH POC ABG pCO2 POC ABG pO2 ABG pO2 ABG HCO3 ABG O2 Saturation ABG Base Excess ABG Hemoglobin ABG Oxyhemoglobin ABG Sodium ABG Potassium ABG Chloride ABG Glucose Oxyhemoglobin Carboxyhemoglobin Sodium Potassium Chloride Carbon Dioxide BUN Creatinine Glucose POC Glucose 116 H Hemoglobin A1c Calcium Phosphorus Magnesium AST ALT Alkaline Phosphatase Lactate Dehydrogenase C-Reactive Protein Total Protein Albumin Triglycerides Arterial Blood Glucose Arterial Blood Ionized Calcium Urine Creatinine Random Vancomycin Coronavirus (PCR) Positive A Crossmatch 03/15/21 03/15/21 03/15/21 05:09 05:09 05:09 WBC RBC Hgb Hct MCH RDW Plt Count Lymph % (Auto) Wayne # (Auto) Eos # (Auto) Seg Neutrophils % Seg Neutrophils # Percent Retic PT INR Fibrinogen D-Dimer ABG pH POC ABG pCO2 POC ABG pO2 ABG pO2 ABG HCO3 ABG O2 Saturation ABG Base Excess ABG Hemoglobin ABG Oxyhemoglobin ABG Sodium ABG Potassium ABG Chloride ABG Glucose Oxyhemoglobin Carboxyhemoglobin Sodium 136 L Potassium 6.5 H* D Chloride Carbon Dioxide 17 L BUN 41 H Creatinine 5.3 H Glucose 128 H POC Glucose Hemoglobin A1c 6.3 H Calcium Phosphorus Magnesium AST ALT Alkaline Phosphatase Lactate Dehydrogenase C-Reactive Protein 12.10 H Total Protein Albumin 3.1 L Triglycerides Arterial Blood Glucose Arterial Blood Ionized Calcium Urine Creatinine Random Vancomycin Coronavirus (PCR) Crossmatch 03/15/21 03/15/21 03/15/21 10:00 21:50 23:39 WBC RBC Hgb Hct MCH RDW Plt Count Lymph % (Auto) Wayne # (Auto) Eos # (Auto) Seg Neutrophils % Seg Neutrophils # Percent Retic PT INR Fibrinogen D-Dimer ABG pH 7.098 L POC ABG pCO2 72.7 H POC ABG pO2 ABG pO2 162.5 H ABG HCO3 ABG O2 Saturation ABG Base Excess ABG Hemoglobin 10.1 L ABG Oxyhemoglobin ABG Sodium ABG Potassium 5.7 H ABG Chloride ABG Glucose Oxyhemoglobin Carboxyhemoglobin 0.4 L Sodium Potassium Chloride Carbon Dioxide BUN Creatinine Glucose POC Glucose 156 H Hemoglobin A1c Calcium Phosphorus Magnesium AST ALT Alkaline Phosphatase Lactate Dehydrogenase C-Reactive Protein Total Protein Albumin Triglycerides Arterial Blood Glucose Arterial Blood Ionized Calcium Urine Creatinine Random Vancomycin Coronavirus (PCR) Crossmatch 03/16/21 03/16/21 03/16/21 05:00 05:30 05:30 WBC 16.7 H RBC 3.59 L Hgb 9.6 L Hct 30.1 L MCH 27 L RDW 17.5 H Plt Count Lymph % (Auto) Wayne # (Auto) Eos # (Auto) Seg Neutrophils % Seg Neutrophils # Percent Retic PT INR Fibrinogen D-Dimer ABG pH POC ABG pCO2 POC ABG pO2 ABG pO2 ABG HCO3 ABG O2 Saturation ABG Base Excess ABG Hemoglobin ABG Oxyhemoglobin ABG Sodium ABG Potassium ABG Chloride ABG Glucose Oxyhemoglobin Carboxyhemoglobin Sodium Potassium Chloride Carbon Dioxide BUN 46 H Creatinine 6.2 H Glucose 131 H POC Glucose Hemoglobin A1c Calcium Phosphorus 6.00 H D Magnesium AST ALT Alkaline Phosphatase Lactate Dehydrogenase 318 H C-Reactive Protein 18.60 H Total Protein Albumin 3.0 L Triglycerides Arterial Blood Glucose Arterial Blood Ionized Calcium Urine Creatinine Random Vancomycin Coronavirus (PCR) Crossmatch 03/16/21 03/16/21 03/16/21 05:51 06:37 08:58 WBC RBC Hgb Hct MCH RDW Plt Count Lymph % (Auto) Wayne # (Auto) Eos # (Auto) Seg Neutrophils % Seg Neutrophils # Percent Retic PT INR Fibrinogen D-Dimer 3041.12 H ABG pH POC ABG pCO2 POC ABG pO2 ABG pO2 141.5 H ABG HCO3 ABG O2 Saturation ABG Base Excess ABG Hemoglobin 9.7 L ABG Oxyhemoglobin ABG Sodium ABG Potassium ABG Chloride ABG Glucose Oxyhemoglobin Carboxyhemoglobin Sodium Potassium Chloride Carbon Dioxide BUN Creatinine Glucose POC Glucose 126 H Hemoglobin A1c Calcium Phosphorus Magnesium AST ALT Alkaline Phosphatase Lactate Dehydrogenase C-Reactive Protein Total Protein Albumin Triglycerides Arterial Blood Glucose Arterial Blood Ionized Calcium Urine Creatinine Random Vancomycin Coronavirus (PCR) Crossmatch 03/16/21 03/16/21 03/16/21 12:11 16:51 21:00 WBC RBC Hgb Hct MCH RDW Plt Count Lymph % (Auto) Wayne # (Auto) Eos # (Auto) Seg Neutrophils % Seg Neutrophils # Percent Retic PT INR Fibrinogen D-Dimer ABG pH 7.239 L POC ABG pCO2 61.5 H POC ABG pO2 80.8 L ABG pO2 ABG HCO3 ABG O2 Saturation ABG Base Excess ABG Hemoglobin 11.4 L ABG Oxyhemoglobin 93.5 L ABG Sodium ABG Potassium 5.4 H ABG Chloride ABG Glucose 137 H Oxyhemoglobin Carboxyhemoglobin 0.2 L Sodium Potassium Chloride Carbon Dioxide BUN Creatinine Glucose POC Glucose 156 H 133 H Hemoglobin A1c Calcium Phosphorus Magnesium AST ALT Alkaline Phosphatase Lactate Dehydrogenase C-Reactive Protein Total Protein Albumin Triglycerides Arterial Blood Glucose 137 H Arterial Blood Ionized Calcium Urine Creatinine Random Vancomycin Coronavirus (PCR) Crossmatch 03/16/21 03/17/21 03/17/21 23:42 05:23 05:23 WBC 18.4 H RBC Hgb Hct MCH 27 L RDW 17.4 H Plt Count Lymph % (Auto) Wayne # (Auto) Eos # (Auto) Seg Neutrophils % Seg Neutrophils # Percent Retic PT INR Fibrinogen D-Dimer ABG pH POC ABG pCO2 POC ABG pO2 ABG pO2 ABG HCO3 ABG O2 Saturation ABG Base Excess ABG Hemoglobin ABG Oxyhemoglobin ABG Sodium ABG Potassium ABG Chloride ABG Glucose Oxyhemoglobin Carboxyhemoglobin Sodium Potassium 5.2 H Chloride Carbon Dioxide 21 L BUN 79 H Creatinine 8.6 H Glucose 124 H POC Glucose 133 H Hemoglobin A1c Calcium Phosphorus Magnesium AST ALT Alkaline Phosphatase Lactate Dehydrogenase C-Reactive Protein Total Protein Albumin 3.2 L Triglycerides 285 H Arterial Blood Glucose Arterial Blood Ionized Calcium Urine Creatinine Random Vancomycin Coronavirus (PCR) Crossmatch 03/17/21 03/17/21 03/17/21 05:23 10:48 12:20 WBC RBC Hgb Hct MCH RDW Plt Count Lymph % (Auto) Wayne # (Auto) Eos # (Auto) Seg Neutrophils % Seg Neutrophils # Percent Retic PT INR Fibrinogen D-Dimer ABG pH 7.294 L POC ABG pCO2 POC ABG pO2 ABG pO2 90.3 H ABG HCO3 ABG O2 Saturation ABG Base Excess ABG Hemoglobin 9.9 L ABG Oxyhemoglobin ABG Sodium ABG Potassium ABG Chloride ABG Glucose Oxyhemoglobin Carboxyhemoglobin Sodium Potassium 5.2 H Chloride Carbon Dioxide 21 L BUN 79 H Creatinine 8.4 H Glucose 125 H POC Glucose 171 H Hemoglobin A1c Calcium Phosphorus 9.90 H D Magnesium 2.40 H AST ALT Alkaline Phosphatase Lactate Dehydrogenase C-Reactive Protein Total Protein Albumin Triglycerides Arterial Blood Glucose Arterial Blood Ionized Calcium Urine Creatinine Random Vancomycin Coronavirus (PCR) Crossmatch 03/17/21 03/17/21 03/18/21 17:24 21:00 04:30 WBC RBC Hgb Hct MCH RDW Plt Count Lymph % (Auto) Wayne # (Auto) Eos # (Auto) Seg Neutrophils % Seg Neutrophils # Percent Retic PT INR Fibrinogen D-Dimer 9953.09 H ABG pH 7.310 L POC ABG pCO2 54.5 H POC ABG pO2 62.3 L ABG pO2 ABG HCO3 ABG O2 Saturation ABG Base Excess ABG Hemoglobin 10.2 L ABG Oxyhemoglobin 88.6 L ABG Sodium ABG Potassium 4.7 H ABG Chloride ABG Glucose 99 H Oxyhemoglobin Carboxyhemoglobin 0.3 L Sodium Potassium Chloride Carbon Dioxide BUN Creatinine Glucose POC Glucose 121 H Hemoglobin A1c Calcium Phosphorus Magnesium AST ALT Alkaline Phosphatase Lactate Dehydrogenase C-Reactive Protein Total Protein Albumin Triglycerides Arterial Blood Glucose 99 H Arterial Blood Ionized Calcium 4.3 L Urine Creatinine Random Vancomycin Coronavirus (PCR) Crossmatch 11/09/0203/18/21 03/18/21 04:30 04:30 11:34 WBC 12.8 H RBC 3.49 L Hgb 9.4 L Hct 29.3 L MCH 27 L RDW 17.4 H Plt Count Lymph % (Auto) Wayne # (Auto) Eos # (Auto) Seg Neutrophils % Seg Neutrophils # Percent Retic PT INR Fibrinogen D-Dimer ABG pH POC ABG pCO2 POC ABG pO2 ABG pO2 ABG HCO3 ABG O2 Saturation ABG Base Excess ABG Hemoglobin ABG Oxyhemoglobin ABG Sodium ABG Potassium ABG Chloride ABG Glucose Oxyhemoglobin Carboxyhemoglobin Sodium Potassium Chloride Carbon Dioxide BUN 69 H Creatinine 7.3 H Glucose POC Glucose 114 H Hemoglobin A1c Calcium 8.2 L Phosphorus 7.60 H D Magnesium AST ALT Alkaline Phosphatase Lactate Dehydrogenase 477 H C-Reactive Protein 6.90 H Total Protein Albumin Triglycerides Arterial Blood Glucose Arterial Blood Ionized Calcium Urine Creatinine Random Vancomycin Coronavirus (PCR) Crossmatch 03/18/21 03/19/21 03/19/21 21:44 04:13 04:13 WBC 13.7 H RBC 3.32 L Hgb 9.0 L Hct 28.1 L MCH 27 L RDW 16.9 H Plt Count Lymph % (Auto) Wayne # (Auto) Eos # (Auto) Seg Neutrophils % Seg Neutrophils # Percent Retic PT INR Fibrinogen D-Dimer ABG pH 7.290 L POC ABG pCO2 POC ABG pO2 ABG pO2 119.7 H ABG HCO3 28.0 H ABG O2 Saturation ABG Base Excess ABG Hemoglobin 9.6 L ABG Oxyhemoglobin ABG Sodium ABG Potassium ABG Chloride ABG Glucose Oxyhemoglobin Carboxyhemoglobin Sodium Potassium Chloride Carbon Dioxide BUN Creatinine Glucose POC Glucose Hemoglobin A1c Calcium Phosphorus Magnesium AST ALT Alkaline Phosphatase Lactate Dehydrogenase C-Reactive Protein Total Protein Albumin Triglycerides Arterial Blood Glucose Arterial Blood Ionized Calcium Urine Creatinine Random Vancomycin 43.5 H Coronavirus (PCR) Crossmatch 03/19/21 03/19/21 03/19/21 04:13 05:59 11:40 WBC RBC Hgb Hct MCH RDW Plt Count Lymph % (Auto) Wayne # (Auto) Eos # (Auto) Seg Neutrophils % Seg Neutrophils # Percent Retic PT INR Fibrinogen D-Dimer ABG pH POC ABG pCO2 POC ABG pO2 ABG pO2 ABG HCO3 ABG O2 Saturation ABG Base Excess ABG Hemoglobin ABG Oxyhemoglobin ABG Sodium ABG Potassium ABG Chloride ABG Glucose Oxyhemoglobin Carboxyhemoglobin Sodium Potassium Chloride Carbon Dioxide BUN 55 H Creatinine 7.0 H Glucose POC Glucose 116 H 145 H Hemoglobin A1c Calcium 8.1 L Phosphorus 7.90 H Magnesium AST ALT Alkaline Phosphatase Lactate Dehydrogenase C-Reactive Protein Total Protein Albumin Triglycerides Arterial Blood Glucose Arterial Blood Ionized Calcium Urine Creatinine Random Vancomycin Coronavirus (PCR) Crossmatch 03/19/21 03/19/21 03/20/21 17:01 23:41 04:00 WBC 15.6 H RBC 3.55 L Hgb 9.6 L Hct MCH 27 L RDW 16.8 H Plt Count 139 L Lymph % (Auto) Wayne # (Auto) Eos # (Auto) Seg Neutrophils % Seg Neutrophils # Percent Retic PT INR Fibrinogen D-Dimer ABG pH POC ABG pCO2 POC ABG pO2 ABG pO2 ABG HCO3 ABG O2 Saturation ABG Base Excess ABG Hemoglobin ABG Oxyhemoglobin ABG Sodium ABG Potassium ABG Chloride ABG Glucose Oxyhemoglobin Carboxyhemoglobin Sodium Potassium Chloride Carbon Dioxide BUN Creatinine Glucose POC Glucose 111 H 118 H Hemoglobin A1c Calcium Phosphorus Magnesium AST ALT Alkaline Phosphatase Lactate Dehydrogenase C-Reactive Protein Total Protein Albumin Triglycerides Arterial Blood Glucose Arterial Blood Ionized Calcium Urine Creatinine Random Vancomycin Coronavirus (PCR) Crossmatch 03/20/21 03/20/21 03/20/21 04:00 04:00 04:37 WBC RBC Hgb Hct MCH RDW Plt Count Lymph % (Auto) Wayne # (Auto) Eos # (Auto) Seg Neutrophils % Seg Neutrophils # Percent Retic PT INR Fibrinogen D-Dimer > 30458 H ABG pH 7.306 L POC ABG pCO2 POC ABG pO2 ABG pO2 ABG HCO3 27.9 H ABG O2 Saturation ABG Base Excess ABG Hemoglobin 5.2 L ABG Oxyhemoglobin ABG Sodium ABG Potassium ABG Chloride ABG Glucose Oxyhemoglobin Carboxyhemoglobin Sodium Potassium 5.2 H Chloride 97.6 L Carbon Dioxide BUN 52 H Creatinine 6.2 H Glucose 104 H POC Glucose Hemoglobin A1c Calcium Phosphorus 8.60 H Magnesium AST ALT Alkaline Phosphatase Lactate Dehydrogenase C-Reactive Protein 6.90 H Total Protein Albumin Triglycerides Arterial Blood Glucose Arterial Blood Ionized Calcium Urine Creatinine Random Vancomycin Coronavirus (PCR) Crossmatch 03/20/21 03/20/21 03/20/21 13:50 17:46 17:56 WBC RBC Hgb Hct MCH RDW Plt Count Lymph % (Auto) Wayne # (Auto) Eos # (Auto) Seg Neutrophils % Seg Neutrophils # Percent Retic PT INR Fibrinogen D-Dimer ABG pH POC ABG pCO2 POC ABG pO2 ABG pO2 ABG HCO3 ABG O2 Saturation ABG Base Excess ABG Hemoglobin ABG Oxyhemoglobin ABG Sodium ABG Potassium ABG Chloride ABG Glucose Oxyhemoglobin Carboxyhemoglobin Sodium Potassium Chloride Carbon Dioxide BUN 63 H 43 H Creatinine Glucose POC Glucose 145 H Hemoglobin A1c Calcium Phosphorus Magnesium AST ALT Alkaline Phosphatase Lactate Dehydrogenase C-Reactive Protein Total Protein Albumin Triglycerides Arterial Blood Glucose Arterial Blood Ionized Calcium Urine Creatinine Random Vancomycin Coronavirus (PCR) Crossmatch 03/20/21 03/21/21 03/21/21 23:18 06:58 06:58 WBC 14.4 H RBC 3.41 L Hgb 9.5 L Hct 28.6 L MCH RDW 17.4 H Plt Count 107 L Lymph % (Auto) Wayne # (Auto) Eos # (Auto) Seg Neutrophils % Seg Neutrophils # Percent Retic PT INR Fibrinogen D-Dimer ABG pH POC ABG pCO2 POC ABG pO2 ABG pO2 ABG HCO3 ABG O2 Saturation ABG Base Excess ABG Hemoglobin ABG Oxyhemoglobin ABG Sodium ABG Potassium ABG Chloride ABG Glucose Oxyhemoglobin Carboxyhemoglobin Sodium Potassium Chloride Carbon Dioxide BUN 60 H Creatinine 7.7 H Glucose POC Glucose 106 H Hemoglobin A1c Calcium Phosphorus Magnesium AST ALT Alkaline Phosphatase Lactate Dehydrogenase C-Reactive Protein Total Protein Albumin Triglycerides Arterial Blood Glucose Arterial Blood Ionized Calcium Urine Creatinine Random Vancomycin Coronavirus (PCR) Crossmatch 03/21/21 03/21/21 03/21/21 11:11 18:04 Unknown WBC RBC Hgb Hct MCH RDW Plt Count Lymph % (Auto) Wayne # (Auto) Eos # (Auto) Seg Neutrophils % Seg Neutrophils # Percent Retic PT INR Fibrinogen D-Dimer ABG pH 7.270 L POC ABG pCO2 58.7 H POC ABG pO2 76.9 L ABG pO2 ABG HCO3 ABG O2 Saturation ABG Base Excess ABG Hemoglobin 9.9 L ABG Oxyhemoglobin 92.4 L ABG Sodium 135.8 L ABG Potassium 4.6 H ABG Chloride ABG Glucose Oxyhemoglobin Carboxyhemoglobin 0.1 L Sodium Potassium Chloride Carbon Dioxide BUN Creatinine Glucose POC Glucose 109 H 141 H Hemoglobin A1c Calcium Phosphorus Magnesium AST ALT Alkaline Phosphatase Lactate Dehydrogenase C-Reactive Protein Total Protein Albumin Triglycerides Arterial Blood Glucose Arterial Blood Ionized Calcium 4.5 L Urine Creatinine Random Vancomycin Coronavirus (PCR) Crossmatch 03/22/21 03/22/21 03/22/21 03:09 07:10 10:00 WBC RBC Hgb Hct MCH RDW Plt Count Lymph % (Auto) Wayne # (Auto) Eos # (Auto) Seg Neutrophils % Seg Neutrophils # Percent Retic PT INR Fibrinogen D-Dimer ABG pH 7.206 L 7.245 L POC ABG pCO2 55.6 H POC ABG pO2 ABG pO2 90.6 H ABG HCO3 ABG O2 Saturation ABG Base Excess -4.4 L ABG Hemoglobin 9.0 L 8.4 L ABG Oxyhemoglobin ABG Sodium 123.4 L ABG Potassium 5.6 H ABG Chloride ABG Glucose 106 H Oxyhemoglobin 94.5 L Carboxyhemoglobin 0.1 L Sodium Potassium 5.4 H Chloride 96.8 L Carbon Dioxide BUN 89 H Creatinine 8.7 H Glucose 131 H POC Glucose Hemoglobin A1c Calcium Phosphorus Magnesium AST ALT Alkaline Phosphatase Lactate Dehydrogenase C-Reactive Protein 9.40 H Total Protein Albumin Triglycerides Arterial Blood Glucose 106 H Arterial Blood Ionized Calcium Urine Creatinine Random Vancomycin Coronavirus (PCR) Crossmatch 03/22/21 03/22/21 03/22/21 10:00 12:37 13:19 WBC RBC 3.05 L Hgb 8.4 L Hct 25.5 L MCH RDW 17.5 H Plt Count 108 L Lymph % (Auto) Wayne # (Auto) Eos # (Auto) Seg Neutrophils % Seg Neutrophils # Percent Retic PT INR Fibrinogen D-Dimer ABG pH POC ABG pCO2 POC ABG pO2 ABG pO2 ABG HCO3 ABG O2 Saturation ABG Base Excess ABG Hemoglobin ABG Oxyhemoglobin ABG Sodium ABG Potassium ABG Chloride ABG Glucose Oxyhemoglobin Carboxyhemoglobin Sodium Potassium Chloride Carbon Dioxide BUN Creatinine 8.7 H Glucose POC Glucose 140 H Hemoglobin A1c Calcium Phosphorus Magnesium AST ALT Alkaline Phosphatase Lactate Dehydrogenase C-Reactive Protein Total Protein Albumin Triglycerides Arterial Blood Glucose Arterial Blood Ionized Calcium Urine Creatinine Random Vancomycin Coronavirus (PCR) Crossmatch 03/22/21 03/22/21 03/22/21 13:40 17:14 18:21 WBC RBC Hgb Hct MCH RDW Plt Count Lymph % (Auto) Wayne # (Auto) Eos # (Auto) Seg Neutrophils % Seg Neutrophils # Percent Retic PT 15.8 H INR 1.14 H Fibrinogen D-Dimer > 99610 H ABG pH POC ABG pCO2 POC ABG pO2 ABG pO2 ABG HCO3 ABG O2 Saturation ABG Base Excess ABG Hemoglobin ABG Oxyhemoglobin ABG Sodium ABG Potassium ABG Chloride ABG Glucose Oxyhemoglobin Carboxyhemoglobin Sodium Potassium Chloride Carbon Dioxide BUN Creatinine Glucose POC Glucose 117 H 112 H Hemoglobin A1c Calcium Phosphorus Magnesium AST ALT Alkaline Phosphatase Lactate Dehydrogenase C-Reactive Protein Total Protein Albumin Triglycerides Arterial Blood Glucose Arterial Blood Ionized Calcium Urine Creatinine Random Vancomycin Coronavirus (PCR) Crossmatch 03/22/21 03/22/21 03/23/21 21:25 22:57 04:30 WBC RBC Hgb Hct MCH RDW Plt Count Lymph % (Auto) Wayne # (Auto) Eos # (Auto) Seg Neutrophils % Seg Neutrophils # Percent Retic PT INR Fibrinogen D-Dimer ABG pH 7.188 L* POC ABG pCO2 POC ABG pO2 ABG pO2 97.9 H ABG HCO3 ABG O2 Saturation ABG Base Excess -3.7 L ABG Hemoglobin 9.2 L ABG Oxyhemoglobin ABG Sodium ABG Potassium ABG Chloride ABG Glucose Oxyhemoglobin 94.4 L Carboxyhemoglobin Sodium Potassium Chloride Carbon Dioxide BUN Creatinine Glucose POC Glucose 106 H Hemoglobin A1c Calcium Phosphorus Magnesium AST ALT Alkaline Phosphatase Lactate Dehydrogenase C-Reactive Protein Total Protein Albumin Triglycerides 381 H Arterial Blood Glucose Arterial Blood Ionized Calcium Urine Creatinine Random Vancomycin Coronavirus (PCR) Crossmatch 03/23/21 03/23/21 03/23/21 04:30 04:30 05:37 WBC 20.1 H RBC 3.17 L Hgb 8.6 L Hct 27.2 L MCH 27 L RDW 17.4 H Plt Count 118 L Lymph % (Auto) Wayne # (Auto) Eos # (Auto) Seg Neutrophils % Seg Neutrophils # Percent Retic PT INR Fibrinogen D-Dimer ABG pH POC ABG pCO2 POC ABG pO2 ABG pO2 ABG HCO3 ABG O2 Saturation ABG Base Excess ABG Hemoglobin ABG Oxyhemoglobin ABG Sodium ABG Potassium ABG Chloride ABG Glucose Oxyhemoglobin Carboxyhemoglobin Sodium Potassium 5.2 H Chloride 97.1 L Carbon Dioxide 21 L BUN 82 H Creatinine 9.1 H Glucose 109 H POC Glucose 130 H Hemoglobin A1c Calcium Phosphorus 10.80 H Magnesium 3.50 H AST ALT Alkaline Phosphatase Lactate Dehydrogenase C-Reactive Protein Total Protein Albumin Triglycerides Arterial Blood Glucose Arterial Blood Ionized Calcium Urine Creatinine Random Vancomycin Coronavirus (PCR) Crossmatch 03/23/21 03/23/21 03/23/21 08:44 11:30 16:09 WBC RBC Hgb Hct MCH RDW Plt Count Lymph % (Auto) Wayne # (Auto) Eos # (Auto) Seg Neutrophils % Seg Neutrophils # Percent Retic PT INR Fibrinogen D-Dimer ABG pH 7.190 L POC ABG pCO2 57.9 H POC ABG pO2 79.2 L ABG pO2 ABG HCO3 ABG O2 Saturation ABG Base Excess ABG Hemoglobin 11.8 L ABG Oxyhemoglobin 92.3 L ABG Sodium 131.0 L ABG Potassium 5.0 H ABG Chloride ABG Glucose 122 H Oxyhemoglobin Carboxyhemoglobin 0.4 L Sodium Potassium Chloride Carbon Dioxide BUN Creatinine Glucose POC Glucose 129 H 148 H Hemoglobin A1c Calcium Phosphorus Magnesium AST ALT Alkaline Phosphatase Lactate Dehydrogenase C-Reactive Protein Total Protein Albumin Triglycerides Arterial Blood Glucose 122 H Arterial Blood Ionized Calcium 4.4 L Urine Creatinine Random Vancomycin Coronavirus (PCR) Crossmatch 03/23/21 03/24/21 03/24/21 21:00 03:35 04:00 WBC 17.8 H RBC 2.96 L Hgb 8.1 L Hct 25.0 L MCH 27 L RDW 17.7 H Plt Count 124 L Lymph % (Auto) Wayne # (Auto) Eos # (Auto) Seg Neutrophils % Seg Neutrophils # Percent Retic PT INR Fibrinogen D-Dimer ABG pH 7.223 L POC ABG pCO2 50.3 H POC ABG pO2 114.4 H ABG pO2 ABG HCO3 ABG O2 Saturation ABG Base Excess ABG Hemoglobin 8.8 L ABG Oxyhemoglobin ABG Sodium 130.4 L ABG Potassium 5.1 H ABG Chloride ABG Glucose 126 H Oxyhemoglobin Carboxyhemoglobin 0.2 L Sodium Potassium Chloride Carbon Dioxide BUN Creatinine Glucose POC Glucose 148 H Hemoglobin A1c Calcium Phosphorus Magnesium AST ALT Alkaline Phosphatase Lactate Dehydrogenase C-Reactive Protein Total Protein Albumin Triglycerides Arterial Blood Glucose 126 H Arterial Blood Ionized Calcium 4.4 L Urine Creatinine Random Vancomycin Coronavirus (PCR) Crossmatch 03/24/21 03/24/21 03/24/21 04:00 06:49 12:29 WBC RBC Hgb Hct MCH RDW Plt Count Lymph % (Auto) Wayne # (Auto) Eos # (Auto) Seg Neutrophils % Seg Neutrophils # Percent Retic PT INR Fibrinogen D-Dimer ABG pH POC ABG pCO2 POC ABG pO2 ABG pO2 ABG HCO3 ABG O2 Saturation ABG Base Excess ABG Hemoglobin ABG Oxyhemoglobin ABG Sodium ABG Potassium ABG Chloride ABG Glucose Oxyhemoglobin Carboxyhemoglobin Sodium Potassium Chloride 95.6 L Carbon Dioxide 20 L BUN 108 H Creatinine 10.8 H Glucose 155 H POC Glucose 136 H 142 H Hemoglobin A1c Calcium Phosphorus Magnesium AST ALT Alkaline Phosphatase Lactate Dehydrogenase C-Reactive Protein Total Protein Albumin Triglycerides Arterial Blood Glucose Arterial Blood Ionized Calcium Urine Creatinine Random Vancomycin Coronavirus (PCR) Crossmatch 03/24/21 03/25/21 03/25/21 21:35 00:15 05:51 WBC RBC Hgb Hct MCH RDW Plt Count Lymph % (Auto) Wayne # (Auto) Eos # (Auto) Seg Neutrophils % Seg Neutrophils # Percent Retic PT INR Fibrinogen D-Dimer ABG pH 7.241 L POC ABG pCO2 POC ABG pO2 ABG pO2 72.4 L ABG HCO3 ABG O2 Saturation 90.3 L ABG Base Excess ABG Hemoglobin 7.9 L ABG Oxyhemoglobin ABG Sodium ABG Potassium ABG Chloride ABG Glucose Oxyhemoglobin 88.4 L Carboxyhemoglobin Sodium Potassium Chloride Carbon Dioxide BUN Creatinine Glucose POC Glucose 110 H 121 H Hemoglobin A1c Calcium Phosphorus Magnesium AST ALT Alkaline Phosphatase Lactate Dehydrogenase C-Reactive Protein Total Protein Albumin Triglycerides Arterial Blood Glucose Arterial Blood Ionized Calcium Urine Creatinine Random Vancomycin Coronavirus (PCR) Crossmatch 03/25/21 03/25/21 03/25/21 05:54 05:54 12:21 WBC 12.4 H RBC 2.52 L Hgb 6.9 L Hct 21.1 L MCH RDW 17.4 H Plt Count 102 L Lymph % (Auto) Wayne # (Auto) Eos # (Auto) Seg Neutrophils % Seg Neutrophils # Percent Retic PT INR Fibrinogen D-Dimer ABG pH POC ABG pCO2 POC ABG pO2 ABG pO2 ABG HCO3 ABG O2 Saturation ABG Base Excess ABG Hemoglobin ABG Oxyhemoglobin ABG Sodium ABG Potassium ABG Chloride ABG Glucose Oxyhemoglobin Carboxyhemoglobin Sodium Potassium Chloride 96.7 L Carbon Dioxide BUN 81 H Creatinine 8.1 H Glucose 116 H POC Glucose 138 H Hemoglobin A1c Calcium 8.2 L Phosphorus Magnesium AST ALT Alkaline Phosphatase Lactate Dehydrogenase C-Reactive Protein Total Protein Albumin Triglycerides Arterial Blood Glucose Arterial Blood Ionized Calcium Urine Creatinine Random Vancomycin Coronavirus (PCR) Crossmatch 03/25/21 03/25/21 03/25/21 13:45 17:32 21:30 WBC RBC Hgb Hct MCH RDW Plt Count Lymph % (Auto) Wayne # (Auto) Eos # (Auto) Seg Neutrophils % Seg Neutrophils # Percent Retic PT INR Fibrinogen D-Dimer ABG pH POC ABG pCO2 POC ABG pO2 ABG pO2 70.2 L ABG HCO3 ABG O2 Saturation ABG Base Excess ABG Hemoglobin 6.8 L ABG Oxyhemoglobin ABG Sodium ABG Potassium ABG Chloride ABG Glucose Oxyhemoglobin 94.5 L Carboxyhemoglobin Sodium Potassium Chloride Carbon Dioxide BUN Creatinine Glucose POC Glucose 110 H Hemoglobin A1c Calcium Phosphorus Magnesium AST ALT Alkaline Phosphatase Lactate Dehydrogenase C-Reactive Protein Total Protein Albumin Triglycerides Arterial Blood Glucose Arterial Blood Ionized Calcium Urine Creatinine Random Vancomycin Coronavirus (PCR) Crossmatch See Detail 03/25/21 03/25/21 03/26/21 23:29 Unknown 05:15 WBC 12.4 H 14.0 H RBC 2.49 L 2.83 L Hgb 6.8 L 7.6 L Hct 20.9 L 23.6 L MCH 27 L 27 L RDW 18.0 H 17.1 H Plt Count 107 L 116 L Lymph % (Auto) Wayne # (Auto) Eos # (Auto) Seg Neutrophils % Seg Neutrophils # Percent Retic PT INR Fibrinogen D-Dimer ABG pH POC ABG pCO2 POC ABG pO2 ABG pO2 ABG HCO3 ABG O2 Saturation ABG Base Excess ABG Hemoglobin ABG Oxyhemoglobin ABG Sodium ABG Potassium ABG Chloride ABG Glucose Oxyhemoglobin Carboxyhemoglobin Sodium Potassium Chloride Carbon Dioxide BUN Creatinine Glucose POC Glucose 113 H Hemoglobin A1c Calcium Phosphorus Magnesium AST ALT Alkaline Phosphatase Lactate Dehydrogenase C-Reactive Protein Total Protein Albumin Triglycerides Arterial Blood Glucose Arterial Blood Ionized Calcium Urine Creatinine Random Vancomycin Coronavirus (PCR) Crossmatch 03/26/21 03/26/21 03/26/21 05:15 05:35 09:50 WBC RBC Hgb Hct MCH RDW Plt Count Lymph % (Auto) Wayne # (Auto) Eos # (Auto) Seg Neutrophils % Seg Neutrophils # Percent Retic PT INR Fibrinogen D-Dimer ABG pH POC ABG pCO2 POC ABG pO2 ABG pO2 79.9 L ABG HCO3 ABG O2 Saturation ABG Base Excess ABG Hemoglobin 7.1 L ABG Oxyhemoglobin ABG Sodium ABG Potassium ABG Chloride ABG Glucose Oxyhemoglobin 94.9 L Carboxyhemoglobin Sodium Potassium 3.4 L Chloride Carbon Dioxide BUN 70 H Creatinine 7.3 H Glucose 142 H POC Glucose 130 H Hemoglobin A1c Calcium 8.2 L Phosphorus Magnesium AST ALT Alkaline Phosphatase Lactate Dehydrogenase C-Reactive Protein Total Protein Albumin Triglycerides 254 H Arterial Blood Glucose Arterial Blood Ionized Calcium Urine Creatinine Random Vancomycin Coronavirus (PCR) Crossmatch 03/26/21 03/26/21 03/26/21 11:45 16:36 23:33 WBC RBC Hgb Hct MCH RDW Plt Count Lymph % (Auto) Wayne # (Auto) Eos # (Auto) Seg Neutrophils % Seg Neutrophils # Percent Retic PT INR Fibrinogen D-Dimer ABG pH POC ABG pCO2 POC ABG pO2 ABG pO2 ABG HCO3 ABG O2 Saturation ABG Base Excess ABG Hemoglobin ABG Oxyhemoglobin ABG Sodium ABG Potassium ABG Chloride ABG Glucose Oxyhemoglobin Carboxyhemoglobin Sodium Potassium Chloride Carbon Dioxide BUN Creatinine Glucose POC Glucose 123 H 121 H 120 H Hemoglobin A1c Calcium Phosphorus Magnesium AST ALT Alkaline Phosphatase Lactate Dehydrogenase C-Reactive Protein Total Protein Albumin Triglycerides Arterial Blood Glucose Arterial Blood Ionized Calcium Urine Creatinine Random Vancomycin Coronavirus (PCR) Crossmatch 03/27/21 03/27/21 03/27/21 03:20 04:14 08:20 WBC 13.2 H RBC 2.82 L Hgb 7.9 L Hct 23.5 L MCH RDW 17.3 H Plt Count 125 L Lymph % (Auto) Wayne # (Auto) Eos # (Auto) Seg Neutrophils % Seg Neutrophils # Percent Retic PT INR Fibrinogen D-Dimer ABG pH POC ABG pCO2 50.0 H POC ABG pO2 58.3 L ABG pO2 ABG HCO3 ABG O2 Saturation ABG Base Excess ABG Hemoglobin 11.3 L ABG Oxyhemoglobin 88.5 L ABG Sodium ABG Potassium ABG Chloride ABG Glucose 132 H Oxyhemoglobin Carboxyhemoglobin 0.2 L Sodium Potassium Chloride Carbon Dioxide BUN Creatinine Glucose POC Glucose 119 H Hemoglobin A1c Calcium Phosphorus Magnesium AST ALT Alkaline Phosphatase Lactate Dehydrogenase C-Reactive Protein Total Protein Albumin Triglycerides Arterial Blood Glucose 132 H Arterial Blood Ionized Calcium Urine Creatinine Random Vancomycin Coronavirus (PCR) Crossmatch 03/27/21 03/27/21 03/27/21 08:20 11:39 17:32 WBC RBC Hgb Hct MCH RDW Plt Count Lymph % (Auto) Wayne # (Auto) Eos # (Auto) Seg Neutrophils % Seg Neutrophils # Percent Retic PT INR Fibrinogen D-Dimer ABG pH POC ABG pCO2 POC ABG pO2 ABG pO2 ABG HCO3 ABG O2 Saturation ABG Base Excess ABG Hemoglobin ABG Oxyhemoglobin ABG Sodium ABG Potassium ABG Chloride ABG Glucose Oxyhemoglobin Carboxyhemoglobin Sodium Potassium Chloride Carbon Dioxide BUN 57 H Creatinine 6.8 H Glucose 131 H POC Glucose 121 H 126 H Hemoglobin A1c Calcium Phosphorus Magnesium AST ALT Alkaline Phosphatase Lactate Dehydrogenase C-Reactive Protein Total Protein Albumin Triglycerides Arterial Blood Glucose Arterial Blood Ionized Calcium Urine Creatinine Random Vancomycin Coronavirus (PCR) Crossmatch 03/28/21 03/28/21 03/28/21 00:10 04:45 05:25 WBC RBC Hgb Hct MCH RDW Plt Count Lymph % (Auto) Wayne # (Auto) Eos # (Auto) Seg Neutrophils % Seg Neutrophils # Percent Retic PT INR Fibrinogen D-Dimer ABG pH POC ABG pCO2 POC ABG pO2 ABG pO2 57.6 L ABG HCO3 27.1 H ABG O2 Saturation 88.5 L ABG Base Excess ABG Hemoglobin ABG Oxyhemoglobin ABG Sodium ABG Potassium ABG Chloride ABG Glucose Oxyhemoglobin 86.6 L Carboxyhemoglobin Sodium Potassium Chloride Carbon Dioxide BUN Creatinine Glucose POC Glucose 113 H 121 H Hemoglobin A1c Calcium Phosphorus Magnesium AST ALT Alkaline Phosphatase Lactate Dehydrogenase C-Reactive Protein Total Protein Albumin Triglycerides Arterial Blood Glucose Arterial Blood Ionized Calcium Urine Creatinine Random Vancomycin Coronavirus (PCR) Crossmatch 03/28/21 03/28/21 03/28/21 09:37 09:37 11:48 WBC 16.3 H RBC 2.92 L Hgb 8.2 L Hct 24.8 L MCH RDW 17.5 H Plt Count Lymph % (Auto) 10.7 L Wayne # (Auto) 0.9 H Eos # (Auto) 0.6 H Seg Neutrophils % 80.0 H Seg Neutrophils # 13.0 H Percent Retic PT INR Fibrinogen D-Dimer ABG pH POC ABG pCO2 POC ABG pO2 ABG pO2 ABG HCO3 ABG O2 Saturation ABG Base Excess ABG Hemoglobin ABG Oxyhemoglobin ABG Sodium ABG Potassium ABG Chloride ABG Glucose Oxyhemoglobin Carboxyhemoglobin Sodium Potassium Chloride Carbon Dioxide BUN 61 H Creatinine 7.7 H Glucose 148 H POC Glucose 123 H Hemoglobin A1c Calcium Phosphorus Magnesium AST ALT Alkaline Phosphatase Lactate Dehydrogenase C-Reactive Protein Total Protein Albumin Triglycerides Arterial Blood Glucose Arterial Blood Ionized Calcium Urine Creatinine Random Vancomycin Coronavirus (PCR) Crossmatch 03/28/21 03/28/21 03/28/21 17:33 21:08 23:38 WBC RBC Hgb Hct MCH RDW Plt Count Lymph % (Auto) Wayne # (Auto) Eos # (Auto) Seg Neutrophils % Seg Neutrophils # Percent Retic PT INR Fibrinogen D-Dimer ABG pH POC ABG pCO2 POC ABG pO2 80.5 L ABG pO2 ABG HCO3 ABG O2 Saturation ABG Base Excess ABG Hemoglobin 9.5 L ABG Oxyhemoglobin ABG Sodium 133.3 L ABG Potassium ABG Chloride ABG Glucose 134 H Oxyhemoglobin Carboxyhemoglobin 0.3 L Sodium Potassium Chloride Carbon Dioxide BUN Creatinine Glucose POC Glucose 128 H 112 H Hemoglobin A1c Calcium Phosphorus Magnesium AST ALT Alkaline Phosphatase Lactate Dehydrogenase C-Reactive Protein Total Protein Albumin Triglycerides Arterial Blood Glucose 134 H Arterial Blood Ionized Calcium Urine Creatinine Random Vancomycin Coronavirus (PCR) Crossmatch 03/29/21 03/29/21 03/29/21 04:45 04:45 04:45 WBC 17.5 H RBC 3.15 L Hgb 8.8 L Hct 27.2 L MCH RDW 17.9 H Plt Count 132 L Lymph % (Auto) Wayne # (Auto) Eos # (Auto) Seg Neutrophils % Seg Neutrophils # Percent Retic PT INR Fibrinogen D-Dimer ABG pH POC ABG pCO2 POC ABG pO2 ABG pO2 ABG HCO3 ABG O2 Saturation ABG Base Excess ABG Hemoglobin ABG Oxyhemoglobin ABG Sodium ABG Potassium ABG Chloride ABG Glucose Oxyhemoglobin Carboxyhemoglobin Sodium Potassium Chloride 97.7 L Carbon Dioxide 21 L BUN 78 H Creatinine 9.5 H Glucose 132 H POC Glucose Hemoglobin A1c Calcium Phosphorus Magnesium AST ALT Alkaline Phosphatase Lactate Dehydrogenase C-Reactive Protein Total Protein Albumin 2.2 L Triglycerides 385 H Arterial Blood Glucose Arterial Blood Ionized Calcium Urine Creatinine Random Vancomycin Coronavirus (PCR) Crossmatch 03/29/21 03/29/21 03/29/21 11:35 16:50 21:06 WBC RBC Hgb Hct MCH RDW Plt Count Lymph % (Auto) Wayne # (Auto) Eos # (Auto) Seg Neutrophils % Seg Neutrophils # Percent Retic PT INR Fibrinogen D-Dimer ABG pH POC ABG pCO2 POC ABG pO2 ABG pO2 64.9 L ABG HCO3 ABG O2 Saturation ABG Base Excess -5.2 L ABG Hemoglobin ABG Oxyhemoglobin ABG Sodium ABG Potassium ABG Chloride ABG Glucose Oxyhemoglobin 85.1 L Carboxyhemoglobin Sodium Potassium Chloride Carbon Dioxide BUN Creatinine Glucose POC Glucose 148 H 133 H Hemoglobin A1c Calcium Phosphorus Magnesium AST ALT Alkaline Phosphatase Lactate Dehydrogenase C-Reactive Protein Total Protein Albumin Triglycerides Arterial Blood Glucose Arterial Blood Ionized Calcium Urine Creatinine Random Vancomycin Coronavirus (PCR) Crossmatch 03/29/21 03/30/21 03/30/21 Unknown 00:13 04:00 WBC 15.7 H RBC 3.18 L Hgb 8.6 L Hct 27.3 L MCH 27 L RDW 18.0 H Plt Count 86 L Lymph % (Auto) Wayne # (Auto) Eos # (Auto) Seg Neutrophils % Seg Neutrophils # Percent Retic PT INR Fibrinogen D-Dimer ABG pH 7.258 L POC ABG pCO2 POC ABG pO2 ABG pO2 ABG HCO3 ABG O2 Saturation ABG Base Excess -4.9 L ABG Hemoglobin 8.8 L ABG Oxyhemoglobin ABG Sodium ABG Potassium ABG Chloride ABG Glucose Oxyhemoglobin 93.9 L Carboxyhemoglobin Sodium Potassium Chloride Carbon Dioxide BUN Creatinine Glucose POC Glucose 129 H Hemoglobin A1c Calcium Phosphorus Magnesium AST ALT Alkaline Phosphatase Lactate Dehydrogenase C-Reactive Protein Total Protein Albumin Triglycerides Arterial Blood Glucose Arterial Blood Ionized Calcium Urine Creatinine Random Vancomycin Coronavirus (PCR) Crossmatch 03/30/21 03/30/21 03/30/21 04:00 04:00 06:02 WBC RBC Hgb Hct MCH RDW Plt Count Lymph % (Auto) Wayne # (Auto) Eos # (Auto) Seg Neutrophils % Seg Neutrophils # Percent Retic PT INR Fibrinogen D-Dimer 2607.12 H ABG pH POC ABG pCO2 POC ABG pO2 ABG pO2 ABG HCO3 ABG O2 Saturation ABG Base Excess ABG Hemoglobin ABG Oxyhemoglobin ABG Sodium ABG Potassium ABG Chloride ABG Glucose Oxyhemoglobin Carboxyhemoglobin Sodium 133 L Potassium 5.2 H D Chloride 91.5 L Carbon Dioxide 18 L BUN 101 H Creatinine 10.6 H Glucose 149 H POC Glucose 130 H Hemoglobin A1c Calcium Phosphorus 10.30 H Magnesium AST ALT Alkaline Phosphatase Lactate Dehydrogenase C-Reactive Protein 21.50 H Total Protein Albumin Triglycerides Arterial Blood Glucose Arterial Blood Ionized Calcium Urine Creatinine Random Vancomycin Coronavirus (PCR) Crossmatch 03/30/21 03/30/21 03/30/21 10:36 11:48 17:20 WBC RBC Hgb Hct MCH RDW Plt Count Lymph % (Auto) Wayne # (Auto) Eos # (Auto) Seg Neutrophils % Seg Neutrophils # Percent Retic PT INR Fibrinogen D-Dimer ABG pH 7.224 L POC ABG pCO2 49.1 H POC ABG pO2 61.5 L ABG pO2 ABG HCO3 ABG O2 Saturation ABG Base Excess ABG Hemoglobin 10.2 L ABG Oxyhemoglobin 86.2 L ABG Sodium 129.6 L ABG Potassium 5.4 H ABG Chloride 96.0 L ABG Glucose 161 H Oxyhemoglobin Carboxyhemoglobin Sodium Potassium Chloride Carbon Dioxide BUN Creatinine Glucose POC Glucose 163 H 130 H Hemoglobin A1c Calcium Phosphorus Magnesium AST ALT Alkaline Phosphatase Lactate Dehydrogenase C-Reactive Protein Total Protein Albumin Triglycerides Arterial Blood Glucose 161 H Arterial Blood Ionized Calcium 4.4 L Urine Creatinine Random Vancomycin Coronavirus (PCR) Crossmatch 03/30/21 03/31/21 03/31/21 23:49 00:28 05:20 WBC 17.3 H RBC 2.99 L Hgb 8.2 L Hct 25.3 L MCH 27 L RDW 18.3 H Plt Count 126 L Lymph % (Auto) Wayne # (Auto) Eos # (Auto) Seg Neutrophils % Seg Neutrophils # Percent Retic PT INR Fibrinogen D-Dimer ABG pH 7.249 L POC ABG pCO2 POC ABG pO2 77.7 L ABG pO2 ABG HCO3 ABG O2 Saturation ABG Base Excess ABG Hemoglobin 9.0 L ABG Oxyhemoglobin 92.9 L ABG Sodium 130.4 L ABG Potassium 4.7 H ABG Chloride ABG Glucose 166 H Oxyhemoglobin Carboxyhemoglobin 0.4 L Sodium Potassium Chloride Carbon Dioxide BUN Creatinine Glucose POC Glucose 143 H Hemoglobin A1c Calcium Phosphorus Magnesium AST ALT Alkaline Phosphatase Lactate Dehydrogenase C-Reactive Protein Total Protein Albumin Triglycerides Arterial Blood Glucose 166 H Arterial Blood Ionized Calcium 4.3 L Urine Creatinine Random Vancomycin Coronavirus (PCR) Crossmatch 03/31/21 03/31/21 03/31/21 05:20 06:18 09:44 WBC RBC Hgb Hct MCH RDW Plt Count Lymph % (Auto) Wayne # (Auto) Eos # (Auto) Seg Neutrophils % Seg Neutrophils # Percent Retic PT INR Fibrinogen D-Dimer ABG pH 7.247 L POC ABG pCO2 POC ABG pO2 ABG pO2 ABG HCO3 ABG O2 Saturation 94.4 L ABG Base Excess -5.1 L ABG Hemoglobin 8.2 L ABG Oxyhemoglobin ABG Sodium ABG Potassium ABG Chloride ABG Glucose Oxyhemoglobin 92.4 L Carboxyhemoglobin Sodium Potassium Chloride Carbon Dioxide BUN Creatinine Glucose POC Glucose 155 H Hemoglobin A1c Calcium Phosphorus 8.20 H D Magnesium AST ALT Alkaline Phosphatase Lactate Dehydrogenase C-Reactive Protein Total Protein Albumin Triglycerides Arterial Blood Glucose Arterial Blood Ionized Calcium Urine Creatinine Random Vancomycin Coronavirus (PCR) Crossmatch 03/31/21 03/31/21 03/31/21 09:49 09:55 09:55 WBC RBC Hgb Hct MCH RDW Plt Count Lymph % (Auto) Wayne # (Auto) Eos # (Auto) Seg Neutrophils % Seg Neutrophils # Percent Retic 4.52 H PT 16.5 H INR 1.20 H Fibrinogen D-Dimer ABG pH POC ABG pCO2 POC ABG pO2 ABG pO2 ABG HCO3 ABG O2 Saturation ABG Base Excess ABG Hemoglobin ABG Oxyhemoglobin ABG Sodium ABG Potassium ABG Chloride ABG Glucose Oxyhemoglobin Carboxyhemoglobin Sodium 133 L Potassium Chloride 92.8 L Carbon Dioxide 20 L BUN 87 H Creatinine 8.9 H Glucose 177 H POC Glucose Hemoglobin A1c Calcium 8.2 L Phosphorus Magnesium AST 169 H ALT Alkaline Phosphatase 187 H Lactate Dehydrogenase C-Reactive Protein Total Protein Albumin 2.3 L Triglycerides Arterial Blood Glucose Arterial Blood Ionized Calcium Urine Creatinine Random Vancomycin Coronavirus (PCR) Crossmatch 03/31/21 03/31/21 03/31/21 09:55 09:55 11:25 WBC RBC Hgb Hct MCH RDW Plt Count Lymph % (Auto) Wayne # (Auto) Eos # (Auto) Seg Neutrophils % Seg Neutrophils # Percent Retic PT INR Fibrinogen 491 H D-Dimer ABG pH POC ABG pCO2 POC ABG pO2 ABG pO2 ABG HCO3 ABG O2 Saturation ABG Base Excess ABG Hemoglobin ABG Oxyhemoglobin ABG Sodium ABG Potassium ABG Chloride ABG Glucose Oxyhemoglobin Carboxyhemoglobin Sodium Potassium Chloride Carbon Dioxide BUN Creatinine Glucose POC Glucose 178 H Hemoglobin A1c Calcium Phosphorus Magnesium AST ALT Alkaline Phosphatase Lactate Dehydrogenase 509 H C-Reactive Protein Total Protein Albumin Triglycerides Arterial Blood Glucose Arterial Blood Ionized Calcium Urine Creatinine Random Vancomycin Coronavirus (PCR) Crossmatch 03/31/21 03/31/21 03/31/21 12:30 17:40 21:00 WBC RBC Hgb Hct MCH RDW Plt Count Lymph % (Auto) Wayne # (Auto) Eos # (Auto) Seg Neutrophils % Seg Neutrophils # Percent Retic PT INR Fibrinogen D-Dimer ABG pH 7.235 L 7.216 L POC ABG pCO2 POC ABG pO2 ABG pO2 76.8 L 113.9 H ABG HCO3 ABG O2 Saturation 93.2 L ABG Base Excess -5.3 L -7.3 L ABG Hemoglobin 6.3 L 8.0 L ABG Oxyhemoglobin ABG Sodium ABG Potassium ABG Chloride ABG Glucose Oxyhemoglobin 91.1 L Carboxyhemoglobin Sodium Potassium Chloride Carbon Dioxide BUN Creatinine Glucose POC Glucose 245 H Hemoglobin A1c Calcium Phosphorus Magnesium AST ALT Alkaline Phosphatase Lactate Dehydrogenase C-Reactive Protein Total Protein Albumin Triglycerides Arterial Blood Glucose Arterial Blood Ionized Calcium Urine Creatinine Random Vancomycin Coronavirus (PCR) Crossmatch 04/01/21 04/01/21 04/01/21 00:11 05:09 08:25 WBC RBC Hgb Hct MCH RDW Plt Count Lymph % (Auto) Wayne # (Auto) Eos # (Auto) Seg Neutrophils % Seg Neutrophils # Percent Retic PT INR Fibrinogen D-Dimer ABG pH 7.225 L POC ABG pCO2 POC ABG pO2 ABG pO2 76.4 L ABG HCO3 ABG O2 Saturation 92.2 L ABG Base Excess -7.6 L ABG Hemoglobin 7.3 L ABG Oxyhemoglobin ABG Sodium ABG Potassium ABG Chloride ABG Glucose Oxyhemoglobin 90.2 L Carboxyhemoglobin Sodium Potassium Chloride Carbon Dioxide BUN Creatinine Glucose POC Glucose 209 H 173 H Hemoglobin A1c Calcium Phosphorus Magnesium AST ALT Alkaline Phosphatase Lactate Dehydrogenase C-Reactive Protein Total Protein Albumin Triglycerides Arterial Blood Glucose Arterial Blood Ionized Calcium Urine Creatinine Random Vancomycin Coronavirus (PCR) Crossmatch 04/01/21 04/01/21 04/01/21 12:01 12:05 17:55 WBC RBC Hgb Hct MCH RDW Plt Count Lymph % (Auto) Wayne # (Auto) Eos # (Auto) Seg Neutrophils % Seg Neutrophils # Percent Retic PT INR Fibrinogen D-Dimer ABG pH POC ABG pCO2 POC ABG pO2 ABG pO2 ABG HCO3 ABG O2 Saturation ABG Base Excess ABG Hemoglobin ABG Oxyhemoglobin ABG Sodium ABG Potassium ABG Chloride ABG Glucose Oxyhemoglobin Carboxyhemoglobin Sodium Potassium 5.9 H Chloride Carbon Dioxide BUN Creatinine Glucose POC Glucose 202 H 217 H Hemoglobin A1c Calcium Phosphorus Magnesium AST ALT Alkaline Phosphatase Lactate Dehydrogenase C-Reactive Protein Total Protein Albumin Triglycerides Arterial Blood Glucose Arterial Blood Ionized Calcium Urine Creatinine Random Vancomycin Coronavirus (PCR) Crossmatch 04/01/21 04/01/21 04/01/21 Unknown Unknown 23:59 WBC 27.2 H RBC 3.08 L Hgb 8.4 L Hct 26.0 L MCH 27 L RDW 18.5 H Plt Count Lymph % (Auto) Wayne # (Auto) Eos # (Auto) Seg Neutrophils % Seg Neutrophils # Percent Retic PT INR Fibrinogen D-Dimer ABG pH POC ABG pCO2 POC ABG pO2 ABG pO2 ABG HCO3 ABG O2 Saturation ABG Base Excess ABG Hemoglobin ABG Oxyhemoglobin ABG Sodium ABG Potassium ABG Chloride ABG Glucose Oxyhemoglobin Carboxyhemoglobin Sodium 132 L Potassium 6.6 H* D Chloride 91.3 L Carbon Dioxide 17 L BUN 104 H Creatinine 9.3 H Glucose 199 H POC Glucose 172 H Hemoglobin A1c Calcium 8.3 L Phosphorus Magnesium AST 236 H ALT 93 H Alkaline Phosphatase 191 H Lactate Dehydrogenase C-Reactive Protein Total Protein Albumin 2.4 L Triglycerides Arterial Blood Glucose Arterial Blood Ionized Calcium Urine Creatinine Random Vancomycin Coronavirus (PCR) Crossmatch 04/02/21 04/02/21 04/02/21 04:00 04:00 05:00 WBC 31.0 H RBC 2.93 L Hgb 8.0 L Hct 24.7 L MCH 27 L RDW 19.2 H Plt Count 131 L Lymph % (Auto) Wayne # (Auto) Eos # (Auto) Seg Neutrophils % Seg Neutrophils # Percent Retic PT 16.0 H INR 1.16 H Fibrinogen D-Dimer ABG pH POC ABG pCO2 POC ABG pO2 ABG pO2 ABG HCO3 ABG O2 Saturation ABG Base Excess ABG Hemoglobin ABG Oxyhemoglobin ABG Sodium ABG Potassium ABG Chloride ABG Glucose Oxyhemoglobin Carboxyhemoglobin Sodium 135 L Potassium 5.3 H Chloride 96.1 L Carbon Dioxide 18 L BUN 80 H Creatinine 6.8 H Glucose 174 H POC Glucose Hemoglobin A1c Calcium 7.7 L Phosphorus Magnesium AST 106 H ALT 60 H Alkaline Phosphatase Lactate Dehydrogenase C-Reactive Protein Total Protein 5.9 L Albumin 3.5 L Triglycerides 579 H Arterial Blood Glucose Arterial Blood Ionized Calcium Urine Creatinine Random Vancomycin Coronavirus (PCR) Crossmatch 04/02/21 04/02/21 04/02/21 05:09 08:55 11:06 WBC RBC Hgb Hct MCH RDW Plt Count Lymph % (Auto) Wayne # (Auto) Eos # (Auto) Seg Neutrophils % Seg Neutrophils # Percent Retic PT INR Fibrinogen D-Dimer ABG pH 7.188 L POC ABG pCO2 58.3 H POC ABG pO2 132.8 H ABG pO2 ABG HCO3 ABG O2 Saturation ABG Base Excess ABG Hemoglobin 8.4 L ABG Oxyhemoglobin ABG Sodium ABG Potassium 5.0 H ABG Chloride 97.0 L ABG Glucose 156 H Oxyhemoglobin Carboxyhemoglobin 0.4 L Sodium Potassium Chloride Carbon Dioxide BUN Creatinine Glucose POC Glucose 148 H 167 H Hemoglobin A1c Calcium Phosphorus Magnesium AST ALT Alkaline Phosphatase Lactate Dehydrogenase C-Reactive Protein Total Protein Albumin Triglycerides Arterial Blood Glucose 156 H Arterial Blood Ionized Calcium 4.2 L Urine Creatinine Random Vancomycin Coronavirus (PCR) Crossmatch Allied health notes reviewed: nursing
[2021-04-02] MEDS ORDERED: ALBUMIN HUMAN 5% (25 GM/500 ML) INJ IV NR (14:00)
[2021-04-02] MEDS ORDERED: CALCIUM GLUCONATE 2,000 MG in SODIUM CHLORIDE 0.9% 100 ML IV ONE (14:00)
[2021-04-02] MEDS ORDERED: SODIUM POLYSTYRENE 15 GM/60 ML ORAL LIQD PO NR (14:00)
[2021-04-02] MEDS: ACETAMINOPHEN 325 MG/10.15 ML ORAL LIQD UNIT DOSE FEEDTUBE PRN (14:30)
[2021-04-02] MEDS ORDERED: SODIUM CHLORIDE 0.9% 1000 ML 1,000 ML ONE (15:56)
[2021-04-02] MEDS: MIDAZOLAM 100 MG in SODIUM CHLORIDE 0.9% 80 ML IV SCH (19:39)
[2021-04-02] MEDS: PHENYLEPHRINE 100 MG in SODIUM CHLORIDE 0.9% 90 ML IV SCH (19:42)
[2021-04-02 20:56] LABS: ABG Base Excess -9.9 mmol/L (-2.0-3.0); ABG HCO3 18.9 mmol/L (20.0-26.0); ABG Methemoglobin 0.5 % (0.0-1.5); ABG Oxygen Saturation 97.1 % (95.0-99.0); ABG PCO2 58.6 mm Hg; ABG PO2 111.9 mm Hg (80.0-90.0)
[2021-04-02 21:20] LABS: ABG PH 7.126 pH Units (7.350-7.450)
[2021-04-02] MEDS ORDERED: SODIUM BICARB 8.4% 50 MEQ/50 ML SYRINGE IV ONE (21:36)
[2021-04-02] MEDS: SODIUM BICARBONATE 150 MEQ in DEXTROSE 5% IN WATER 1,000 ML IV SCH (22:59)
[2021-04-03] MEDS: INSULIN LISPRO 100 UNIT/ML SUB-Q SCH ×4 (00:31→18:11)
[2021-04-03] MEDS: IPRATROPIUM/ALBUTEROL SULFATE 3 ML AMPUL.NEB IH SCH ×4 (01:08→19:11)
[2021-04-03] MEDS: fentaNYL DRIP Premix 2,000 MCG/100 ML BAG IV SCH ×6 (03:46→22:50)
[2021-04-03 05:05] LABS: Mean Corpuscular HGB Conc 34 % (30-34); Mean Corpuscular Volume 86 fl (79-97); Platelet Count 145 K/mm3 (140-440); Red Blood Count 2.78 M/mm3 (3.65-5.03)
[2021-04-03 05:27] LABS: Albumin 3.4 g/dL (3.9-5); Calcium 7.6 mg/dL (8.4-10.2)
[2021-04-03 06:08] LABS: Total Cells Counted 100
[2021-04-03 06:10] LABS: RBC Morphology Normal
[2021-04-03] MEDS: NORepinephrine/NS 8 MG-250 ML 8 MG/250 ML INFUS..BTL IV SCH ×2 (06:27→18:20)
[2021-04-03] MEDS: methylPREDNISolone Sod Succinate 125 MG/2 ML INJ IV SCH ×3 (06:28→22:34)
[2021-04-03 08:47] LABS: ABG Base Excess -7.2 mmol/L (-2.0-3.0); ABG HCO3 20.6 mmol/L (20.0-26.0); ABG Methemoglobin 0.6 % (0.0-1.5); ABG Oxygen Saturation 96.8 % (95.0-99.0); ABG PCO2 54.7 mm Hg; ABG PO2 102.6 mm Hg (80.0-90.0)
[2021-04-03 08:50] LABS: ABG PH 7.195 pH Units (7.350-7.450)
[2021-04-03] MEDS: SENNOSIDES/DOCUSATE SODIUM 8.6/50 MG TAB FEEDTUBE SCH ×2 (10:42→22:20)
[2021-04-03] MEDS: FAMOTIDINE 10 MG TAB PO SCH ×2 (10:42→22:34)
[2021-04-03] MEDS: ZINC SULFATE 220 MG CAP PO SCH ×2 (10:42→22:34)
[2021-04-03] MEDS: APIXABAN 2.5 MG TAB PO SCH ×2 (10:42→22:34)
[2021-04-03] MEDS: ASCORBIC ACID 500 MG TAB PO SCH ×2 (10:42→22:34)
[2021-04-03] MEDS: VASOPRESSIN 20 UNIT in SODIUM CHLORIDE 0.9% 100 ML IV SCH ×2 (10:45→21:30)
--- NOTE | 2021-04-03 12:05 | Progress Note ---
<CRISTY PASCUAL - Last Filed: 04/03/21 12:55> Assessment and Plan Assessment and plan: This is a 31-year-old female with asthma, morbid obesity and Crohn's disease admitted for COVID-19 pneumonia and and acute renal failure Neuro: Sedated -Intubated and sedated on propofol and fentanyl and versed -sedation to vent synchrony -Daily SAT/SBT when appropriate -Maintain sleep-wake cycle -Avoid delirium CV: Tachycardia, s/p hypertension now with hypotension -ST on the monitor -Vasopressor support with levophed, vasopressin and Anthony-Synephrine -Maintain MAP above 65 -Blood pressure monitoring via A-line Respiratory: Acute hypoxic respiratory failure, asthma exacerbation, COVID-19 pneumonia, ARDS, RUL PNA, bronchospasm (resolved) -DuoNeb, steroids -Patient was intubated on 03/14 for respiratory distress and inability to protect airway -Intubated with 7.50 ETT at 24 at the lip -A.m. vent settings: AC/PCV R 30, Peep10, FiO2 50 -See RT notes for titration -ABGs per CCM -VAP bundle -SPO2 monitoring -CCM/pulmonary consulted, appreciate recommendations -S/p BiPAP therapy GI: transaminitis, h/o MO and Crohn's disease -Nutrition consulted, appreciate recommendations -Tube feeding: Nepro -Free water 100 mL every 4 hours -BR: [place] -PPI -24 hours -2680 ml -BMS in place : Acute kidney injury likely secondary to ATN, hyperphosphatemia, hyperkalemia, hyponatremia, hypochlroemia, metabolic acidosis -Nephrology consulted, appreciate recommendations -Vas-Cath placed 03/15 -HD initiated 03/15 -Daily weights -Strict intake and output -Avoid nephrotoxic medications -Renally dose medications -Trend BMP -Intervene for electrolytes as needed -HD per nephrology -Bicarb gtt for 2 liters ID: COVID-19 pneumonia, leukocytosis, Staph aureus in tracheal aspirate, Conjunctival hemorrhage, ?HUS vs TTP vs drug reaction -Infectious disease consulted, appreciate recommendations -COVID-19 PCR positive -IV steroid -03/31 1g methylprednisone for 3 days -taper started 04/02 -s/p Actemra per ID -Per ID patient is on a candidate for remdesivir due to renal failure -Patient received 1 dose of remdesivir on 03/14 -Prophylactic anticoagulation based on D-dimer -s/p Cipro/Dex drops for 5 days -Abx per ID: [email or web address] 03/27-03/31 -Trend COVID-19 inflammatory markers -Isolation/droplet precautions for 21 days -Vitamin C/vitamin D/zinc -follow culture data -Monitor WBC and fever curve -s/p plasmapheresis x2 (04/01-04/02) -LDH 509, Eliezer pending, fibrinogen 491 Heme: Leukocytosis, elevated D-dimer, thrombocytopenia (resolved) -Trend CBC -Transfuse hemoglobin less than 7 -Eliquis restarted 03/29 -SCDs to bilateral lower extremity while in bed -BLE duplex US shows no DVT -HIt negative Endo: Hyperglycemia -Hemoglobin A1c 6.3 -SSI -Accu-Cheks every 6 -Avoid hypoglycemia The high probability of a clinically significant, sudden or life threatening deterioration of the [multiple] system(s) required my full and direct attention, intervention and personal management. The aggregate critical care time was [60] minutes. This time is in addition to time spent performing reported procedures but includes the following: [x] Data Review and interpretation [x] Patient assessment and monitoring of vital signs [x] Documentation [x] Medication orders and management Disposition Plan: icu Total Time Spent with Patient (Minutes): 60 History Interval history: This is a 31-year-old female with asthma, history of prior intubation x1 in 02/2019, morbid obesity and Crohn's disease who presented to the emergency department on 03/13 with complaints of severe wheezing and shortness of breath over the past 4 days which is not relieved by home nebulizer treatments or rescue inhalers, cough without fever and no loss of sense of taste or smell. Patient is currently on vaccinated for COVID-19. In the emergency department patient was placed on BiPAP given steroids magnesium Solu-Medrol with improvem ent, CXR shows a streak of possible pneumonia. Patient was made a COVID-19 PUI and admitted to the hospital service. Patient was initially admitted to [facility] on BiPAP and was subsequently intubated due to severe respiratory distress and inability to protect her airway. Patient was admitted with acute hypoxic respiratory failure, acute asthma exacerbation, right upper lobe pneumonia, and as a COVID-19 PUI. Hospital Course to Date: 03/14/21- Patient is s/p intubation from this morning, sedated on propofol and fentanyl RASS -3 to -4. ETT above the clavicles advanced by 2cc. Continue nebs and IV steroids per [facility]. COVID swab pending. Hyperkalemia improved, X1 dose of kayaxalate ordered. Low BP and low urine output this am, fluid bolus challenge, 500cc of NS bolus given. Continue to monitor electrolytes and renal function, repeat BMP this afternoon. 03/15: Patient's renal function noted to be significantly worse today, patient was hyperkalemic and this was medically treated. Patient initiated on hemodialysis today. infectious disease was consulted today. 03/16: No acute events reported overnight, patient received hemodialysis yesterday. Patient is currently on propofol and fentanyl. 03/17: Patient received hemodialysis today, patient is slightly acidotic on ABG however [facility] is allowing for permissive hypercapnia, tracheal aspirate with Staph aureus and ID is aware. 03/18: Patient is having high residuals today and Reglan was started, patient will receive HD daily per nephrology, correct her change in FiO2 as tolerated. 03/19: HD per nephrology today, antibiotics changed to cefazolin. Patient did not tolerate tube feedings as she had high residuals this morning and they were turned off. Not restarted yet. Updated family at bedside today 03/20: HD today, ddimer noted to be >1000, Tolerating trickle TF. Stat BLE dopplar US 03/21: Patient is not tolerating TF, CXR shows worsening infiltrates, [facility] made changes to vent, TF on hold and started on IVF. 03/22/21- Patient remains intubated and on sedation. Persistent vomiting, TF held overnight, no documented BM, on reglan BR added, Shaun citarte & supp. HD today. Plan to restart TF at 10ml/hr, will reevaluate in the am. Persistent thrombocytopenia, Hep on hold, HIT panel ordered, PO eliquis initiated. 03/23/21- Patient remains on the vent and sedated on propofol and fentanyl RASS - 2 to -3. Possible SAT today as tolerated. Patient tolerated trickle feeds overnight, plan to advance TF by 10cc Q8 to 12hrs. Continue current BR and continue reglan for now. Slightr worsening in acidosis from this am, d/w CCM vent setting adjusted, will repeat ABG at 9pm. 03/24/21- Patient is on the vent and sedated, on fentanyl and propfol. Bilateral subconjunctival hemorrhage with periorbital edema noted this am, pupils are round and reactive, will Cipro/Dex [id number]. Worsening of kidney function from today's labs, plan for HD per Nephro. 03/25/21- Patient remains intubated and on sedatin, RASS 0 to -1, no longer on pressors. Sudden drop in H&H this am, bilateral subconjunctival hemorrhage with no sig change, no signs of any active bleeding. Patient appears neurologically intact, following commands, pupils are round and reactive with + gag and cough, moved all extremities. D/w [facility] patient is too unstable for CT at this time. Eliquis D/Devaughn, 1unit of PRBC ordered. Will continue to trend CBC. Plan for another section of HD today 03/26/21- Patient remains on the vent and sedated. VENICE reported from overnight. Plan for HD again today. H&H back up and stable, no AC at this time, SCDs for VTE phro. D/w [facility] patient is still too unstable for CT scan, will continue neuro exam and will continue to monitor H&H. 03/27/21- VENICE overnight. remains on the vent and sedated. Red localized rashes noted in patient upper chest and face, will r/o allergic reaction,CBC with auto diff and urine eosinophils ordered. Plan for HD today per Nephro. 03/28/21- Patient remains on the vent and sedated. Persistent fevers overnight unrelieved with antipyretic, currently on a cooling blanket. Back on pressors for hypotension, patient already on IV abx, last blood cultureX2 and sputum culture from 03/23 were negative. Continue IV abx, will reculture patient, orders placed for B.culture and sputum culture. ID is also on consult. will continue F/u on culture and continue to monitor BMP and CBC. 03/29: Patient restarted on prednisone given splotchy rash, will resume apixaban for VTE prophylaxis and repeat ABG at 9 PM. Remains with leukocytosis, elevated BUN/creatinine, elevated triglycerides and on Levophed 03/30: HD today, rash is still present and started on IV steroids. plt is low today but will continue to monitor. CCM made changes to vent-> decrease in MV. ABG in the pm and possible punch biopsy tomorrow if rash is not improved. propofol changed to versed 03/31: Heme/oncology consulted yesterday, will start patient on plasmapheresis for possible HUS. Cefepime discontinued today as today was the last day. Guillermina nt started on pulse dose steroids of 1 g/day for 3 days. Some improvement noted to eyes this morning. Patient was febrile overnight and received ibuprofen overnight. Acetaminophen allergy confirmed with family, allergy is only to oxycodone and hydrocodone but not the acetaminophen component. Confirmed by family patient has no reaction to [id number] Tylenol. Remains on vasopressor support and sedated with fentanyl, propofol and Versed. Vent mode changed to pressure control ventilation. Patient started on Arctic sun for fever control. Mother updated over telephone this a.m. and this p.m. family meeting held with her mother, sister x 2 and brother and with 2 other unknown people over the phone (1 female and one male) and nurse. Family states that patient is likely to an antibiotic possibly penicillins. This information was not available to us before. 04/01: Hyperkalemia medically treated, patient scheduled for dialysis today, plasmapheresis for possible HUS scheduled for today, steroids should be ending tomorrow, generalized rash/discoloration minimally better. Patient still remains on Arctic sun for temperature regulation. Vent changes per [facility]. 04/02: remains on artic sun but water temp noted to be in the 30s today. Completed plasmapheresis x2 and is now on steroid taper however minimal change noted to rash/discoloration. Eyes are more clear today but remain red under lids (tops of eye). Acidosis noted on ABG. Hyperkalemia and hyperphosphatemeia persists. Sedation increased for RR in to the 40s-50s and vasopressors being titrated as tolerated. Hospitalist Physical - Constitutional Vitals: Temp Pulse Resp BP Pulse Ox 97.5 F L 104 H 30 H 106/42 96 04/03/21 10:55 04/03/21 11:45 04/03/21 11:45 04/03/21 11:45 04/03/21 11:45 General appearance: Present: no acute distress, well-nourished, obese, other (Intubated and sedated) - EENT Eyes: Present: PERRL, EOM intact - Neck Neck: Present: normal ROM - Respiratory Respiratory effort: normal Respiratory: bilateral: diminished - Cardiovascular Rhythm: regular Heart Sounds: Present: S1 & S2. Absent: systolic murmur, diastolic murmur - Extremities Extremities: no ischemia, pulses intact, pulses symmetrical, No edema, normal temperature, normal color Peripheral Pulses: within normal limits - Abdominal General gastrointestinal: soft, non-tender, non-distended, normal bowel sounds - Integumentary Integumentary: Present: warm, dry - Psychiatric Psychiatric: other (sedated) - Neurologic Neurologic: other (sedated) - Allied Health Allied health notes reviewed: nursing, RT, social work Results - Labs CBC & Chem 7: 04/03/21 04:30 04/03/21 04:30 Labs: Laboratory Last Values WBC 31.1 K/mm3 (4.5-11.0) H 04/03/21 04:30 RBC 2.78 M/mm3 (3.65-5.03) L 04/03/21 04:30 Hgb 8.0 gm/dl (10.1-14.3) L 04/03/21 04:30 Hct 24.0 % (30.3-42.9) L 04/03/21 04:30 MCV 86 fl (79-97) 04/03/21 04:30 MCH 29 pg (28-32) 04/03/21 04:30 MCHC 34 % (30-34) 04/03/21 04:30 RDW 19.0 % (13.2-15.2) H 04/03/21 04:30 Plt Count 145 K/mm3 (140-440) 04/03/21 04:30 Lymph % (Auto) 10.7 % (13.4-35.0) L 03/28/21 09:37 Cedar % (Auto) 5.2 % (0.0-7.3) 03/28/21 09:37 Eos % (Auto) Synchronous Motor Assembler 04/03/21 04:30 Baso % (Auto) 0.2 % (0.0-1.8) 03/28/21 09:37 Lymph # (Auto) 1.7 K/mm3 (1.2-5.4) 03/28/21 09:37 Cedar # (Auto) 0.9 K/mm3 (0.0-0.8) H 03/28/21 09:37 Eos # (Auto) 0.6 K/mm3 (0.0-0.4) H 03/28/21 09:37 Baso # (Auto) 0.0 K/mm3 (0.0-0.1) 03/28/21 09:37 Add Manual Diff Complete 04/03/21 04:30 Total Counted 100 04/03/21 04:30 Seg Neutrophils % 80.0 % (40.0-70.0) H 03/28/21 09:37 Seg Neuts % (Manual) 44.0 % (40.0-70.0) 04/03/21 04:30 Lymphocytes % (Manual) 27.0 % (13.4-35.0) 04/03/21 04:30 Eosinophils % (Manual) 27.0 % (0.0-4.3) H 04/03/21 04:30 Basophils % (Manual) 2.0 % (0.0-1.8) H 04/03/21 04:30 Nucleated RBC % Not Reportable 04/03/21 04:30 Seg Neutrophils # 13.0 K/mm3 (1.8-7.7) H 03/28/21 09:37 Seg Neutrophils # Man 13.7 K/mm3 (1.8-7.7) H 04/03/21 04:30 Band Neutrophils # 0.0 K/mm3 04/03/21 04:30 Lymphocytes # (Manual) 8.4 K/mm3 (1.2-5.4) H 04/03/21 04:30 Abs React Lymphs (Man) 0.0 K/mm3 04/03/21 04:30 Monocytes # (Manual) 0.0 K/mm3 (0.0-0.8) 04/03/21 04:30 Eosinophils # (Manual) 8.4 K/mm3 (0.0-0.4) H 04/03/21 04:30 Basophils # (Manual) 0.6 K/mm3 (0.0-0.1) H 04/03/21 04:30 Metamyelocytes # 0.0 K/mm3 04/03/21 04:30 Myelocytes # 0.0 K/mm3 04/03/21 04:30 Promyelocytes # 0.0 K/mm3 04/03/21 04:30 Blast Cells # 0.0 K/mm3 04/03/21 04:30 WBC Morphology Not Reportable 04/03/21 04:30 Hypersegmented Neuts Not Reportable 04/03/21 04:30 Hyposegmented Neuts Not Reportable 04/03/21 04:30 Hypogranular Neuts Not Reportable 04/03/21 04:30 Smudge Cells Not Reportable 04/03/21 04:30 Toxic Granulation Not Reportable 04/03/21 04:30 Toxic Vacuolation Not Reportable 04/03/21 04:30 Dohle Bodies Not Reportable 04/03/21 04:30 Pelger-Huet Anomaly Not Reportable 04/03/21 04:30 Bridgette Rods Not Reportable 04/03/21 04:30 Platelet Estimate Not Reportable 04/03/21 04:30 Clumped Platelets Not Reportable 04/03/21 04:30 Plt Clumps, EDTA Not Reportable 04/03/21 04:30 Large Platelets Not Reportable 04/03/21 04:30 Giant Platelets Not Reportable 04/03/21 04:30 Platelet Satelliting Not Reportable 04/03/21 04:30 Plt Morphology Comment Not Reportable 04/03/21 04:30 RBC Morphology Normal 04/03/21 04:30 Dimorphic RBCs Not Reportable 04/03/21 04:30 Polychromasia Not Reportable 04/03/21 04:30 Hypochromasia Not Reportable 04/03/21 04:30 Poikilocytosis Not Reportable 04/03/21 04:30 Anisocytosis Not Reportable 04/03/21 04:30 Microcytosis Not Reportable 04/03/21 04:30 Macrocytosis Not Reportable 04/03/21 04:30 Spherocytes Not Reportable 04/03/21 04:30 Pappenheimer Bodies Not Reportable 04/03/21 04:30 Sickle Cells Not Reportable 04/03/21 04:30 Target Cells Not Reportable 04/03/21 04:30 Tear Drop Cells Not Reportable 04/03/21 04:30 Ovalocytes Not Reportable 04/03/21 04:30 Helmet Cells Not Reportable 04/03/21 04:30 [place] Bodies Not Reportable 04/03/21 04:30 [place] Rings Not Reportable 04/03/21 04:30 Balaji Cells Not Reportable 04/03/21 04:30 Bite Cells Not Reportable 04/03/21 04:30 Crenated Cell Not Reportable 04/03/21 04:30 Elliptocytes Not Reportable 04/03/21 04:30 Acanthocytes (Spur) Not Reportable 04/03/21 04:30 Rouleaux Not Reportable 04/03/21 04:30 Hemoglobin C Crystals Not Reportable 04/03/21 04:30 Schistocytes Not Reportable 04/03/21 04:30 Malaria parasites Not Reportable 04/03/21 04:30 Percent Retic 4.52 % (0.78-2.58) H 03/31/21 09:49 Vaibhav Bodies Not Reportable 04/03/21 04:30 Hem Pathologist Commnt No 04/03/21 04:30 PT 16.0 Sec. (12.2-14.9) H 04/02/21 04:00 INR 1.16 (0.87-1.13) H 04/02/21 04:00 APTT 29.5 Sec. (24.2-36.6) 04/02/21 04:00 Fibrinogen 248 mg/dl (211-480) 04/02/21 04:00 D-Dimer 2607.12 ng/mlDDU (0-234) H 03/30/21 04:00 Heparin Anti-Xa, Unfract TNR 03/22/21 08:20 ABG pH 7.195 pH Units (7.350-7.450) L* 04/03/21 08:31 POC ABG pCO2 Cancelled 04/02/21 20:40 ABG pCO2 54.7 mm Hg 04/03/21 08:31 POC ABG pO2 Cancelled 04/02/21 20:40 ABG pO2 102.6 mm Hg (80.0-90.0) H 04/03/21 08:31 POC ABG HCO3 Cancelled 04/02/21 20:40 ABG HCO3 20.6 mmol/L (20.0-26.0) 04/03/21 08:31 ABG O2 Saturation 96.8 % (95.0-99.0) 04/03/21 08:31 ABG O2 Content 10.8 (0.0-44) 04/03/21 08:31 POC ABG Base Excess Cancelled 04/02/21 20:40 ABG Base Excess -7.2 mmol/L (-2.0-3.0) L 04/03/21 08:31 ABG Hemoglobin 8.0 gm/dl (12.0-16.0) L 04/03/21 08:31 ABG Oxyhemoglobin Cancelled 04/02/21 20:40 ABG Carboxyhemoglobin 1.6 % (0.0-5.0) 04/03/21 08:31 ABG Methemoglobin 0.6 % (0.0-1.5) 04/03/21 08:31 ABG Sodium Cancelled 04/02/21 20:40 ABG Potassium Cancelled 04/02/21 20:40 ABG Chloride Cancelled 04/02/21 20:40 ABG Glucose Cancelled 04/02/21 20:40 ABG Lactate Cancelled 04/02/21 20:40 Oxyhemoglobin 94.7 % (95.0-99.0) L 04/03/21 08:31 Carboxyhemoglobin Cancelled 04/02/21 20:40 FiO2 60 % 04/03/21 08:31 FiO2 % Cancelled 04/02/21 20:40 Sodium 132 mmol/L (137-145) L 04/03/21 04:30 Potassium 5.8 mmol/L (3.6-5.0) H 04/03/21 04:30 Chloride 94.5 mmol/L (98-107) L 04/03/21 04:30 Carbon Dioxide 16 mmol/L (22-30) L 04/03/21 04:30 Anion Gap 27 mmol/L 04/03/21 04:30 BUN 97 mg/dL (7-17) H 04/03/21 04:30 Creatinine 7.7 mg/dL (0.6-1.2) H 04/03/21 04:30 Estimated GFR 7 ml/min 04/03/21 04:30 BUN/Creatinine Ratio 13 % 04/03/21 04:30 Glucose 230 mg/dL (65-100) H 04/03/21 04:30 POC Glucose 230 mg/dL (70-105) H 04/03/21 11:29 Hemoglobin A1c 6.3 % (4-6) H 03/15/21 05:09 Lactic Acid 2.00 mmol/L (0.7-2.0) 03/14/21 18:47 Calcium 7.6 mg/dL (8.4-10.2) L 04/03/21 04:30 Phosphorus 10.30 mg/dL (2.5-4.5) H 04/03/21 04:30 Magnesium 2.10 mg/dL (1.7-2.3) 04/03/21 04:30 Ferritin 151.6 ng/mL (10.0-200.0) 03/18/21 04:30 Total Bilirubin 0.50 mg/dL (0.1-1.2) 04/03/21 04:30 Bilirubin Cancelled 04/02/21 20:40 AST 47 units/L (5-40) H 04/03/21 04:30 ALT 30 units/L (7-56) 04/03/21 04:30 Alkaline Phosphatase 146 units/L (35-129) H 04/03/21 04:30 Lactate Dehydrogenase 509 units/L (91-180) H 03/31/21 09:55 C-Reactive Protein 21.50 mg/dL (0.00-1.30) H 03/30/21 04:00 Total Protein 5.2 g/dL (6.3-8.2) L 04/03/21 04:30 Albumin 3.4 g/dL (3.9-5) L 04/03/21 04:30 Albumin/Globulin Ratio 1.9 % 04/03/21 04:30 Triglycerides 579 mg/dL (2-149) H 04/02/21 05:00 Procalcitonin < 0.05 ng/mL (<0.15) 03/13/21 15:40 HCG, Qual Negative (Negative) 03/13/21 13:26 Arterial Blood Glucose Cancelled 04/02/21 20:40 Arterial Blood Ionized Calcium Cancelled 04/02/21 20:40 Urine Creatinine 40.1 mg/dL (0.1-20.0) H 03/14/21 17:50 Urine Sodium 124 mmol/L 03/14/21 17:50 Random Vancomycin 11.2 ug/mL (0-40.0) 03/20/21 04:23 Heparin-induced Plt Ab Negative (Negative) 03/22/21 08:20 UF Heparin High Dose TNR 03/22/21 08:20 JUAN UFH Low Dose 0.1 TNR 03/22/21 08:20 JUAN UFH Low Dose 0.5 TNR 03/22/21 08:20 Coronavirus (PCR) Positive (Negative) A 03/14/21 Unknown Hepatitis A IgM Ab Non-reactive (NonReactive) 03/15/21 05:09 Hep Bs Antigen Nonreactive (Negative) 03/15/21 05:09 Hep B Core IgM Ab Non-reactive (NonReactive) 03/15/21 05:09 Hepatitis C Antibody Non-reactive (NonReactive) 03/15/21 05:09 Schistocytes Smear None seen 03/31/21 12:11 Blood Type O POSITIVE 03/25/21 13:45 Antibody Screen Negative 03/25/21 13:45 Direct Antiglob Test Negative 03/31/21 23:18 NIKOLE, Poly Interpret Negative 03/31/21 23:18 Crossmatch See Detail 03/25/21 13:45 Microbiology: Microbiology 03/29/21 23:26 Peripheral/Venous Blood Culture - Preliminary NO GROWTH AFTER 4 DAYS 03/29/21 23:30 Peripheral/Venous Blood Culture - Preliminary NO GROWTH AFTER 4 DAYS Bazan/IV: Voiding Method Incontinent Active Medications - Current Medications Current Medications: Generic Name Dose Route Start Last Admin Trade Name Freq PRN Reason Stop Dose Admin Acetaminophen 650 mg 03/31/21 12:41 04/02/21 14:30 Acetaminophen 325 Mg/10.15 Ml Oral Liqd Unit Dose FEEDTUBE 650 mg Q6H PRN Administration TEMP >/=100.4 Albumin Human 25 gm 04/01/21 08:19 04/01/21 16:23 Albumin Human 25% (25 Gm/100 Ml) Inj IV 25 gm KARLOS PRN Administration Hypotension Albuterol 2.5 mg 03/19/21 00:53 Albuterol 2.5 Mg/3 Ml Nebu IH Q4HRT PRN Shortness Of Breath Albuterol/Ipratropium 1 ampul 03/19/21 08:00 04/03/21 08:32 Ipratropium/Albuterol Sulfate 3 Ml Ampul.Neb IH 1 ampul Q6HRT INESSA Administration Lipase/Protease/Amylase 1 each 03/15/21 11:42 Lipase 10,500/Protease 25,000/Amylase 43,750 (Units) Dr Cap FEEDTUBE PRN PRN For Clogged Feeding Tube Apixaban 2.5 mg 03/29/21 13:00 04/03/21 10:42 Apixaban 2.5 Mg Tab PO 2.5 mg Q12HR INESSA Administration Protocol Ascorbic Acid 500 mg 03/14/21 22:00 04/03/21 10:42 Ascorbic Acid 500 Mg Tab PO 500 mg BID INESSA Administration Dextrose 50 ml 03/14/21 11:02 03/15/21 11:40 Dextrose 50% In Water (25gm) 50 Ml Syringe IV 50 ml Q30MIN PRN Administration Hypoglycemia Protocol Famotidine 10 mg 03/17/21 22:00 04/03/21 10:42 Famotidine 10 Mg Tab PO 10 mg BID INESSA Administration Fentanyl 50 mcg 03/15/21 10:43 03/28/21 09:25 Fentanyl 100 Mcg/2 Ml Inj IV 50 mcg Q10MIN PRN Administration ANALGESIA Hydrophilic Ointment 1 applic 03/14/21 17:50 Lip Therapy Vaseline TP Q2HR PRN Dry Lips Propofol 1,000 mg in 100 mls @ 4.123 mls/hr 03/15/21 11:00 04/03/21 08:41 Diprivan 10 Mg/Ml IV 35 mcg/kg/min TITR INESSA 28.862 mls/hr Administration Protocol 5 MCG/KG/MIN Fentanyl Citrate 2,000 mcg in 100 mls @ 6.872 mls/hr 03/15/21 11:00 04/03/21 08:43 Fentanyl Drip Premix IV 4 mcg/kg/hr TITR INESSA 27.488 mls/hr Administration Protocol 1 MCG/KG/HR Sodium Chloride 500 mls @ 1 mls/hr 03/16/21 17:19 Nacl 0.9% 500 Ml IV DIRECT PRN ARTERIAL LINE FLUSH NORepinephrine/NS 8 MG-250 ML 8 mg in 250 mls @ 3.75 mls/hr 03/23/21 11:00 04/03/21 08:44 Norepinephrine/Ns 8 Mg-250 Ml (Double Conc) IV 16 mcg/min TITRATE INESSA 30 mls/hr Titration Protocol 2 MCG/MIN Midazolam HCl 100 mg/ Sodium 100 mls @ 1 mls/hr 03/30/21 15:00 04/02/21 19:40 Chloride IV 4 mg/hr TITR INESSA 4 mls/hr Titration Protocol 1 MG/HR Vasopressin 20 unit/ Sodium 101 mls @ 9.09 mls/hr 03/30/21 20:00 04/03/21 10:45 Chloride IV 0.03 units/min TITR INESSA 9.09 mls/hr Administration 0.03 UNITS/MIN Phenylephrine HCl 100 mg/ 100 mls @ 3 mls/hr 03/31/21 04:00 04/03/21 00:18 Sodium Chloride IV 60 mcg/min TITR INESSA 3.6 mls/hr Titration Protocol 50 MCG/MIN Sodium Chloride 100 mls @ 999 mls/hr 04/01/21 08:19 Nacl 0.9% IV KARLOS PRN Hypotension Sodium Bicarbonate 150 meq/ 1,150 mls @ 75 mls/hr 04/02/21 22:00 04/02/21 22:59 Dextrose IV 75 mls/hr DIRECT INESSA Administration Insulin Human Lispro 0 unit 03/14/21 12:00 04/03/21 06:28 Insulin Lispro 100 Unit/Ml SUB-Q 3 unit Q6HR INESSA Administration Protocol Lorazepam 1 mg 03/13/21 19:40 03/30/21 19:58 Lorazepam 2 Mg/Ml Vial IV 1 mg Q4H PRN Administration Anxiety Methylprednisolone Sodium Succinate 125 mg 04/03/21 06:00 04/03/21 06:28 Methylprednisolone Sod Succinate 125 Mg/2 Ml Inj IV 04/04/21 05:59 125 mg Q8HR INESSA Administration Methylprednisolone Sodium Succinate 80 mg 04/04/21 22:00 Methylprednisolone Sod Succinate 125 Mg/2 Ml Inj IV Q8HR [facility] Midazolam HCl 2 mg 03/30/21 14:19 03/30/21 14:30 Midazolam 2 Mg/2 Ml Inj IV 2 mg Q10MIN PRN Administration Sedation Multi-Ingred Cream/Lotion/Oil/Oint 1 applic 03/14/21 17:50 04/02/21 14:31 Mineral Oil/Petrolatum, White Ophth Oint 3.5 Gm OU 1 applic Q4HR PRN Administration Dry Eye(s) Ondansetron HCl 4 mg 03/13/21 19:30 03/21/21 12:05 Ondansetron 4 Mg/2 Ml Inj IV 4 mg Q8H PRN Administration Nausea And Vomiting Senna/Docusate Sodium 1 tab 03/14/21 22:00 04/03/21 10:42 Sennosides/Docusate Sodium 8.6/50 Mg Tab FEEDTUBE 1 tab BID INESSA Administration Simple Syrup 15 ml 03/15/21 11:42 Simple Syrup 15 Ml FEEDTUBE PRN PRN Hypoglycemia Simple Syrup 30 ml 03/15/21 11:42 Simple Syrup 15 Ml FEEDTUBE PRN PRN Hypoglycemia Sodium Bicarbonate 325 mg 03/15/21 11:42 03/21/21 17:21 Sodium Bicarbonate 325 Mg Tab FEEDTUBE 325 mg PRN PRN Administration For Clogged Feeding Tube Sodium Chloride 10 ml 03/13/21 22:00 04/03/21 10:43 Sodium Chloride 0.9% 10 Ml Flush Syringe IV 10 ml BID INESSA Administration Sodium Chloride 10 ml 03/13/21 19:30 Sodium Chloride 0.9% 10 Ml Flush Syringe IV PRN PRN LINE FLUSH Zinc Sulfate 220 mg 03/14/21 22:00 04/03/21 10:42 Zinc Sulfate 220 Mg Cap PO 220 mg BID INESSA Administration Nutrition/Malnutrition Assess - Dietary Evaluation Nutrition/Malnutrition Findings: Nutrition Notes Start: 03/15/21 11:06 Freq: Status: Active Protocol: Document 04/02/21 15:08 REJI (Rec: 04/02/21 15:19 [facility] [id number]) Nutrition Notes Initial or Follow up Reassessment Current Diagnosis Acute Kidney Injury, Hypertension,Respiratory Failure Other Pertinent Diagnosis COVID-19 pneu, periorbital edema Current Diet TF - Nepro at 44ml/hr Labs/Tests Na 132 K 5.3 BUN 80 Cr 6.8 BG 174 Triglycerides 579 Pertinent Medications Propofol at 32.985ml/hr ( provides 871 kcal), Human Albumin, Solumedrol, Levophed gtt, Phenylephrine gtt, Vasopressin gtt, Kionex Height 5 ft 5 in Weight 137.438 kg [place] Body Weight (kg) 56.81 BMI 50.4 Weight Status Morbidly Obese Subjective/Other Information Spoke with pt's RN via phone at 15:06. Pt tolerating TF at goal rate, despite being on three pressors. Per RN, been able to decrease pressor concentration. Pt been spiking a fever for past few days; Artic sun blanket in place to lower body temperature. Pt remains on vent support. Percent of energy/protein needs met: 99% energy 73% pro Burn Absent Trauma Absent Minimum of two criteria No #1 Nutrition Diagnosis Swallowing difficulty Diagnosis Progress(for reassessment Continues documentation) Is patient on ventilator? Yes Is Patient Ambulatory and/or Out of Bed No REE-([facility]-confined to bed) 2515.536 Kcal/Kg value to use for calculation 14 Approximate Energy Requirements Using 1924 kcal/Kg Calculation Used for Recommendations Kcal/kg Additional Notes Pro needs >1.2g/kg adjBW: > 117g/day Fluid needs 1-1.5L/day Nutrition Intervention Nutrition Support: Continue Nepro at 44ml/hr. Provide 120ml water flush q4h Kcal 1,901 Protein (gm) 86 Carbohydrates (gm) 170 Fat (gm) 101 Fluid (mL) 768 Fiber (gm) 13 Goal #1 TF tolerance Goal #2 TF to meet at least 75% energy and pro needs Follow-Up By: 04/09/21 Additional Comments F/U: stable TF, vent status, wt, propofol, pressor support, rectal tube <SAURABH ALBRECHT - Last Filed: 04/15/21 07:32> Assessment and Plan Assessment and plan: I saw and evaluated the patient. Discussed with the nurse practitioner and agree with their findings and plan as documented in this note. Hospitalist Physical - Constitutional Vitals: Temp Pulse Resp BP Pulse Ox 102.0 F H 137 H 20 140/76 100 04/15/21 04:00 04/15/21 06:00 04/15/21 06:00 04/15/21 06:00 04/15/21 06:00 Results - Labs CBC & Chem 7: 04/15/21 Unknown 04/15/21 Unknown Labs: Laboratory Last Values WBC 11.8 K/mm3 (4.5-11.0) H 04/15/21 Unknown RBC 2.41 M/mm3 (3.65-5.03) L 04/15/21 Unknown Hgb 7.1 gm/dl (10.1-14.3) L 04/15/21 Unknown Hct 22.4 % (30.3-42.9) L 04/15/21 Unknown MCV 93 fl (79-97) 04/15/21 Unknown MCH 29 pg (28-32) 04/15/21 Unknown MCHC 32 % (30-34) 04/15/21 Unknown RDW 17.0 % (13.2-15.2) H 04/15/21 Unknown Plt Count 38 K/mm3 (140-440) L 04/15/21 Unknown Lymph % (Auto) 10.7 % (13.4-35.0) L 03/28/21 09:37 [place] % (Auto) 5.2 % (0.0-7.3) 03/28/21 09:37 Eos % (Auto) Synchronous Motor Assembler 04/07/21 03:50 Baso % (Auto) 0.2 % (0.0-1.8) 03/28/21 09:37 Lymph # (Auto) 1.7 K/mm3 (1.2-5.4) 03/28/21 09:37 [place]edar # (Auto) 0.9 K/mm3 (0.0-0.8) H 03/28/21 09:37 Eos # (Auto) 0.6 K/mm3 (0.0-0.4) H 03/28/21 09:37 Baso # (Auto) 0.0 K/mm3 (0.0-0.1) 03/28/21 09:37 Add Manual Diff Complete 04/07/21 03:50 Total Counted 100 04/07/21 03:50 Seg Neutrophils % 80.0 % (40.0-70.0) H 03/28/21 09:37 Seg Neuts % (Manual) 67.0 % (40.0-70.0) 04/07/21 03:50 Lymphocytes % (Manual) 10.0 % (13.4-35.0) L 04/07/21 03:50 Monocytes % (Manual) 4.0 % (0.0-7.3) 04/07/21 03:50 Eosinophils % (Manual) 19.0 % (0.0-4.3) H 04/07/21 03:50 Basophils % (Manual) 2.0 % (0.0-1.8) H 04/03/21 04:30 Nucleated RBC % 2.0 % (0.0-0.9) H 04/07/21 03:50 Seg Neutrophils # 13.0 K/mm3 (1.8-7.7) H 03/28/21 09:37 Seg Neutrophils # Man 17.9 K/mm3 (1.8-7.7) H 04/07/21 03:50 Band Neutrophils # 0.0 K/mm3 04/07/21 03:50 Lymphocytes # (Manual) 2.7 K/mm3 (1.2-5.4) 04/07/21 03:50 Abs React Lymphs (Man) 0.0 K/mm3 04/07/21 03:50 Monocytes # (Manual) 1.1 K/mm3 (0.0-0.8) H 04/07/21 03:50 Eosinophils # (Manual) 5.1 K/mm3 (0.0-0.4) H 04/07/21 03:50 Basophils # (Manual) 0.0 K/mm3 (0.0-0.1) 04/07/21 03:50 Metamyelocytes # 0.0 K/mm3 04/07/21 03:50 Myelocytes # 0.0 K/mm3 04/07/21 03:50 Promyelocytes # 0.0 K/mm3 04/07/21 03:50 Blast Cells # 0.0 K/mm3 04/07/21 03:50 WBC Morphology Not Reportable 04/07/21 03:50 Hypersegmented Neuts Not Reportable 04/07/21 03:50 Hyposegmented Neuts Not Reportable 04/07/21 03:50 Hypogranular Neuts Not Reportable 04/07/21 03:50 Smudge Cells Not Reportable 04/07/21 03:50 Toxic Granulation Not Reportable 04/07/21 03:50 Toxic Vacuolation Not Reportable 04/07/21 03:50 Dohle Bodies Not Reportable 04/07/21 03:50 Pelger-Huet Anomaly Not Reportable 04/07/21 03:50 Bridgette Rods Not Reportable 04/07/21 03:50 Platelet Estimate Consistent w auto 04/07/21 03:50 Clumped Platelets Not Reportable 04/07/21 03:50 Plt Clumps, EDTA Not Reportable 04/07/21 03:50 Large Platelets Not Reportable 04/07/21 03:50 Giant Platelets Not Reportable 04/07/21 03:50 Platelet Satelliting Not Reportable 04/07/21 03:50 Plt Morphology Comment Not Reportable 04/07/21 03:50 RBC Morphology Not Reportable 04/07/21 03:50 Dimorphic RBCs Not Reportable 04/07/21 03:50 Polychromasia Not Reportable 04/07/21 03:50 Hypochromasia Not Reportable 04/07/21 03:50 Poikilocytosis Not Reportable 04/07/21 03:50 Anisocytosis 1+ 04/07/21 03:50 Microcytosis Not Reportable 04/07/21 03:50 Macrocytosis Not Reportable 04/07/21 03:50 Spherocytes Not Reportable 04/07/21 03:50 Pappenheimer Bodies Not Reportable 04/07/21 03:50 Sickle Cells Not Reportable 04/07/21 03:50 Target Cells 1+ 04/07/21 03:50 Tear Drop Cells Not Reportable 04/07/21 03:50 Ovalocytes Not Reportable 04/07/21 03:50 Helmet Cells Not Reportable 04/07/21 03:50 [place] Bodies Not Reportable 04/07/21 03:50 [place] Rings Not Reportable 04/07/21 03:50 Balaji Cells Not Reportable 04/07/21 03:50 Bite Cells Not Reportable 04/07/21 03:50 Crenated Cell Not Reportable 04/07/21 03:50 Elliptocytes Not Reportable 04/07/21 03:50 Acanthocytes (Spur) Not Reportable 04/07/21 03:50 Rouleaux Not Reportable 04/07/21 03:50 Hemoglobin C Crystals Not Reportable 04/07/21 03:50 Schistocytes Not Reportable 04/07/21 03:50 Malaria parasites Not Reportable 04/07/21 03:50 Percent Retic 4.52 % (0.78-2.58) H 03/31/21 09:49 Vaibhav Bodies Not Reportable 04/07/21 03:50 Hem Pathologist Commnt No 04/07/21 03:50 PT 16.3 Sec. (12.2-14.9) H 04/15/21 Unknown INR 1.18 (0.87-1.13) H 04/15/21 Unknown APTT 28.9 Sec. (24.2-36.6) 04/04/21 07:55 Fibrinogen 400 mg/dl (211-480) 04/14/21 09:45 D-Dimer 2696.79 ng/mlDDU (0-234) H 04/08/21 04:40 Heparin Anti-Xa, Unfract TNR 03/22/21 08:20 ABG pH 7.207 (7.320-7.450) L 04/14/21 21:00 POC ABG pCO2 67.6 mmHg (32.0-48.0) H 04/14/21 21:00 ABG pCO2 68.6 mm Hg 04/13/21 03:52 POC ABG pO2 143.7 mmHg (83-108) H 04/14/21 21:00 ABG pO2 98.9 mm Hg (80.0-90.0) H 04/13/21 03:52 POC ABG HCO3 26.2 04/14/21 21:00 ABG HCO3 25.5 mmol/L (20.0-26.0) 04/13/21 03:52 ABG O2 Saturation 98.8 (0-100) 04/14/21 21:00 ABG O2 Content 10.0 (0.0-44) 04/13/21 03:52 POC ABG Base Excess -1.9 04/14/21 21:00 ABG Base Excess -2.9 mmol/L (-2.0-3.0) L 04/13/21 03:52 ABG Hemoglobin 7.6 (12.0-17.5) L 04/14/21 21:00 ABG Oxyhemoglobin 97.6 (94-98) 04/14/21 21:00 ABG Carboxyhemoglobin 1.9 % (0.0-5.0) 04/13/21 03:52 ABG Methemoglobin 0.1 (0.0-1.5) 04/14/21 21:00 ABG Sodium 133.8 mmol/L (136.0-145.0) L 04/14/21 21:00 ABG Potassium 4.0 mmol/L (3.40-4.50) 04/14/21 21:00 ABG Chloride 101.0 mmol/L (98-107) 04/14/21 21:00 ABG Glucose 158 mg/dL (65-95) H 04/14/21 21:00 ABG Lactate Cancelled 04/03/21 20:45 Oxyhemoglobin 94.3 % (95.0-99.0) L 04/13/21 03:52 Carboxyhemoglobin 1.1 (0.5-1.5) 04/14/21 21:00 FiO2 65 % 04/13/21 03:52 FiO2 % 80.0 04/14/21 21:00 Sodium 137 mmol/L (137-145) 04/15/21 Unknown Potassium 4.3 mmol/L (3.6-5.0) 04/15/21 Unknown Chloride 98.5 mmol/L (98-107) 04/15/21 Unknown Carbon Dioxide 24 mmol/L (22-30) 04/15/21 Unknown Anion Gap 19 mmol/L 04/15/21 Unknown BUN 67 mg/dL (7-17) H 04/15/21 Unknown Creatinine 3.3 mg/dL (0.6-1.2) H 04/15/21 Unknown Estimated GFR 20 ml/min 04/15/21 Unknown BUN/Creatinine Ratio 20 % 04/15/21 Unknown Glucose 155 mg/dL (65-100) H 04/15/21 Unknown POC Glucose 147 mg/dL (70-105) H 04/14/21 23:53 Hemoglobin A1c 6.3 % (4-6) H 03/15/21 05:09 Lactic Acid 0.80 mmol/L (0.7-2.0) 04/07/21 03:50 Calcium 8.3 mg/dL (8.4-10.2) L 04/15/21 Unknown Phosphorus 5.70 mg/dL (2.5-4.5) H 04/15/21 Unknown Magnesium 1.90 mg/dL (1.7-2.3) 04/15/21 Unknown Ferritin 151.6 ng/mL (10.0-200.0) 03/18/21 04:30 Total Bilirubin 0.40 mg/dL (0.1-1.2) 04/15/21 Unknown Bilirubin Cancelled 04/03/21 20:45 AST 85 units/L (5-40) H 04/15/21 Unknown ALT 63 units/L (7-56) H 04/15/21 Unknown Alkaline Phosphatase 94 units/L (35-129) 04/15/21 Unknown Lactate Dehydrogenase 394 units/L (91-180) H 04/05/21 05:20 C-Reactive Protein 26.10 mg/dL (0.00-1.30) H 04/08/21 04:00 Total Protein 6.3 g/dL (6.3-8.2) 04/15/21 Unknown Albumin 2.4 g/dL (3.9-5) L 04/15/21 Unknown Albumin/Globulin Ratio 0.6 % 04/15/21 Unknown Triglycerides 406 mg/dL (2-149) H 04/11/21 04:15 Serotonin Release Assay TNR 03/22/21 08:20 Procalcitonin < 0.05 ng/mL (<0.15) 03/13/21 15:40 HCG, Qual Negative (Negative) 03/13/21 13:26 Arterial Blood Glucose 158 mg/dL (65-95) H 04/14/21 21:00 Arterial Blood Ionized Calcium 4.7 mg/dL (4.6-5.3) 04/14/21 21:00 Urine Color Sweta (Yellow) 04/06/21 Unknown Urine Turbidity Cloudy (Clear) 04/06/21 Unknown Urine pH 5.0 (5.0-7.0) 04/06/21 Unknown Ur Specific [place] 1.020 (1.003-1.030) 04/06/21 Unknown Urine Protein 100 mg/dl mg/dL (Negative) 04/06/21 Unknown Urine Glucose (UA) Neg mg/dL (Negative) 04/06/21 Unknown Urine Ketones Neg mg/dL (Negative) 04/06/21 Unknown Urine Blood Mod (Negative) 04/06/21 Unknown Urine Nitrite Neg (Negative) 04/06/21 Unknown Urine Bilirubin Neg (Negative) 04/06/21 Unknown Urine Urobilinogen < 2.0 mg/dL (<2.0) 04/06/21 Unknown Ur Leukocyte Esterase Neg (Negative) 04/06/21 Unknown Urine WBC (Auto) 148.0 /HPF (0.0-6.0) H 04/06/21 Unknown Urine RBC (Auto) > 182.0 /HPF (0.0-6.0) 04/06/21 Unknown U Epithel Cells (Auto) 102.0 /HPF (0-13.0) H 04/06/21 Unknown Urine Bacteria (Auto) 1+ /HPF (Negative) 04/06/21 Unknown Ur Renal Epithelial Cell 151 /LPF 04/06/21 Unknown Urine Mucus Few /HPF 04/06/21 Unknown Urine Yeast (Budding) 3+ /HPF 04/06/21 Unknown Urine Creatinine 40.1 mg/dL (0.1-20.0) H 03/14/21 17:50 Urine Sodium 124 mmol/L 03/14/21 17:50 Random Vancomycin 13.6 ug/mL (0-40.0) 04/12/21 04:30 KIMBERLEY Screen Negative (Negative) 04/07/21 08:27 Heparin-induced Plt Ab Negative (Negative) 03/22/21 08:20 UF Heparin High Dose TNR 03/22/21 08:20 JUAN UFH Low Dose 0.1 TNR 03/22/21 08:20 JUAN UFH Low Dose 0.5 TNR 03/22/21 08:20 Coronavirus (PCR) Negative (Negative) 04/04/21 09:00 Hepatitis A IgM Ab Non-reactive (NonReactive) 03/15/21 05:09 Hep Bs Antigen Nonreactive (Negative) 03/15/21 05:09 Hep B Core IgM Ab Non-reactive (NonReactive) 03/15/21 05:09 Hepatitis C Antibody Non-reactive (NonReactive) 03/15/21 05:09 Schistocytes Smear None seen 03/31/21 12:11 Blood Type O POSITIVE 04/11/21 13:39 Antibody Screen Negative 04/11/21 13:39 Direct Antiglob Test Negative 03/31/21 23:18 NIKOLE, Poly Interpret Negative 03/31/21 23:18 Crossmatch See Detail 04/11/21 13:39 Microbiology: Microbiology 04/11/21 15:05 Bronchial Washings - Left Upper Lobe Respiratory Culture - Preliminary Enterococcus Species Bazan/IV: Voiding Method Incontinent Active Medications - Current Medications Current Medications: Generic Name Dose Route Start Last Admin Trade Name Freq PRN Reason Stop Dose Admin Acetaminophen 650 mg 03/31/21 12:41 04/15/21 05:55 Acetaminophen 325 Mg/10.15 Ml Oral Liqd Unit Dose FEEDTUBE 650 mg Q6H PRN Administration TEMP >/=100.4 Albumin Human 25 gm 04/01/21 08:19 04/01/21 16:23 Albumin Human 25% (25 Gm/100 Ml) Inj IV 25 gm KARLOS PRN Administration Hypotension Albuterol 2.5 mg 03/19/21 00:53 Albuterol 2.5 Mg/3 Ml Nebu IH Q4HRT PRN Shortness Of Breath Albuterol/Ipratropium 1 ampul 03/19/21 08:00 04/15/21 02:11 Ipratropium/Albuterol Sulfate 3 Ml Ampul.Neb IH Not Given Q6HRT INESSA Lipase/Protease/Amylase 1 each 04/09/21 17:17 Lipase 10,500/Protease 25,000/Amylase 43,750 (Units) Dr Cap FEEDTUBE PRN PRN For Clogged Feeding Tube Calcium Acetate 1,334 mg 04/03/21 20:00 04/14/21 22:05 Calcium Acetate 667 Mg Cap FEEDTUBE 1,334 mg TID INESSA Administration Dextrose 50 ml 03/14/21 11:02 03/15/21 11:40 Dextrose 50% In Water (25gm) 50 Ml Syringe IV 50 ml Q30MIN PRN Administration Hypoglycemia Protocol Famotidine 10 mg 03/17/21 22:00 04/14/21 22:04 Famotidine 10 Mg Tab PO 10 mg BID INESSA Administration Fentanyl 50 mcg 03/15/21 10:43 04/05/21 21:32 Fentanyl 100 Mcg/2 Ml Inj IV 50 mcg Q10MIN PRN Administration ANALGESIA Hydrocortisone Sodium Succinate 100 mg 04/10/21 00:00 04/15/21 00:19 Hydrocortisone Sod Succ 100 Mg/2 Ml Vial IV 100 mg Q8H INESSA Administration Hydrophilic Ointment 1 applic 03/14/21 17:50 Lip Therapy Vaseline TP Q2HR PRN Dry Lips Fentanyl Citrate 2,000 mcg in 100 mls @ 6.872 mls/hr 03/15/21 11:00 04/15/21 07:09 Fentanyl Drip Premix IV 4 mcg/kg/hr TITR INESSA 27.488 mls/hr Administration Protocol 1 MCG/KG/HR Sodium Chloride 500 mls @ 1 mls/hr 03/16/21 17:19 Nacl 0.9% 500 Ml IV DIRECT PRN ARTERIAL LINE FLUSH Midazolam HCl 100 mg/ Sodium 100 mls @ 1 mls/hr 03/30/21 15:00 04/14/21 15:45 Chloride IV 4 mg/hr TITR INESSA 4 mls/hr Titration Protocol 1 MG/HR Vasopressin 20 unit/ Sodium 101 mls @ 9.09 mls/hr 03/30/21 20:00 04/15/21 07:13 Chloride IV 0.03 units/min TITR INESSA 9.09 mls/hr Infusion 0.03 UNITS/MIN Phenylephrine HCl 100 mg/ 100 mls @ 3 mls/hr 03/31/21 04:00 04/06/21 07:58 Sodium Chloride IV 0 mcg/min TITR INESSA 0 mls/hr Titration Protocol 50 MCG/MIN Sodium Chloride 100 mls @ 999 mls/hr 04/01/21 08:19 Nacl 0.9% IV KARLOS PRN Hypotension Propofol 1,000 mg in 100 mls @ 4.26 mls/hr 04/07/21 13:00 04/12/21 12:52 Diprivan 10 Mg/Ml IV 0 mcg/kg/min TITR INESSA 0 mls/hr Titration Protocol 5 MCG/KG/MIN Micafungin Sodium 100 mg/ 100 mls @ 100 mls/hr 04/09/21 17:00 04/14/21 17:40 Sodium Chloride IV 100 mls/hr Q24H INESSA Administration Protocol Norepinephrine 8 mg/ Sodium 8 mg in 258 mls @ 3.87 mls/hr 04/12/21 04:00 04/14/21 17:39 Chloride IV 0 mcg/min TITRATE INESSA 0 mls/hr Titration Protocol 2 MCG/MIN MEROPENEM/NS 1 GRAM/100 ML 1 gram in 100 mls @ 100 mls/hr 04/12/21 22:00 04/14/21 22:05 Merrem/Ns 1 Gram/100 Ml IV 100 mls/hr Q24H INESSA Administration Protocol Sodium Chloride 1,000 mls @ 1 mls/hr 04/14/21 16:45 04/14/21 16:57 Nacl 0.9% 1000 Ml IV 1 mls/hr DIRECT INESSA Administration Insulin Human Lispro 0 unit 03/14/21 12:00 04/15/21 06:07 Insulin Lispro 100 Unit/Ml SUB-Q Not Given Q6HR INESSA Protocol Lorazepam 1 mg 03/13/21 19:40 03/30/21 19:58 Lorazepam 2 Mg/Ml Vial IV 1 mg Q4H PRN Administration Anxiety Multi-Ingred Cream/Lotion/Oil/Oint 1 applic 03/14/21 17:50 04/10/21 22:03 Mineral Oil/Petrolatum, White Ophth Oint 3.5 Gm OU 1 applic Q4HR PRN Administration Dry Eye(s) Ondansetron HCl 4 mg 03/13/21 19:30 03/21/21 12:05 Ondansetron 4 Mg/2 Ml Inj IV 4 mg Q8H PRN Administration Nausea And Vomiting Quetiapine Fumarate 300 mg 04/06/21 22:00 04/14/21 22:05 Quetiapine 100 Mg Tab PO 300 mg BID INESSA Administration Senna/Docusate Sodium 1 tab 03/14/21 22:00 04/14/21 22:06 Sennosides/Docusate Sodium 8.6/50 Mg Tab FEEDTUBE Not Given BID INESSA Simple Syrup 15 ml 04/09/21 17:17 Simple Syrup 15 Ml FEEDTUBE PRN PRN Hypoglycemia Simple Syrup 30 ml 04/09/21 17:17 Simple Syrup 15 Ml FEEDTUBE PRN PRN Hypoglycemia Sodium Bicarbonate 325 mg 04/09/21 17:17 Sodium Bicarbonate 325 Mg Tab FEEDTUBE PRN PRN For Clogged Feeding Tube Sodium Chloride 10 ml 03/13/21 22:00 04/14/21 22:17 Sodium Chloride 0.9% 10 Ml Flush Syringe IV 10 ml BID INESSA Administration Sodium Chloride 10 ml 03/13/21 19:30 Sodium Chloride 0.9% 10 Ml Flush Syringe IV PRN PRN LINE FLUSH Nutrition/Malnutrition Assess - Dietary Evaluation Nutrition/Malnutrition Findings: Nutrition Notes Start: 03/15/21 11:06 Freq: Status: Active Protocol: Document 04/14/21 11:13 CANDACE (Rec: 04/14/21 11:52 CANDACE [id number]) Nutrition Notes Initial or Follow up Reassessment Other Pertinent Diagnosis [id number], Transaminitis, Hyperglycemia. Current Diet TF -Glucerna 1.2 Abdullahi (since L 04/14). Labs/Tests 04/14: BUN 74, Crea 3.1, Glu 220. Pertinent Medications 04/14 Vit C, D50w (25 g) mEq, Insulin, Zn, Propofol 1,000 mg /100 ml @ 4.26 ml/hr, others nutritionally unremarkable. Height 5 ft 5 in Weight 142 kg [place] Body Weight (kg) 56.81 BMI 52.0 Weight change and time frame No new reports on body weight changes, Weight Status Morbidly Obese Subjective/Other Information RD consult on change TF from Nepro w/CARBSTEADY to Glucerna 1,2 Abdullahi, due to lack of stock Nepro. Percent of energy/protein needs met: 100% Kcal; 85% AA. Burn Absent Trauma Absent GI Symptoms None Food Allergy No Skin Integrity/Comment Clear, warm, dry. Current % PO Other Minimum of two criteria No Is patient on ventilator? Yes Is Patient Ambulatory and/or Out of Bed No REE-([facility]-confined to bed) 2570.232 Kcal/Kg value to use for calculation 14 Approximate Energy Requirements Using 1988 kcal/Kg Calculation Used for Recommendations Kcal/kg Additional Notes Pro needs >1.2g/kg adjBW: > 117g/day Fluid needs 1-1.5L/day Nutrition Intervention Nutrition Support: Change to Glucerna 1.2 Abdullahi @ 69 ml/hr. Flush: 109 ml water Q 4 hr. Kcal 1,988 Protein (gm) 99 Carbohydrates (gm) 190 Fat (gm) 99 Fluid (mL) 1,334 Fiber (gm) 27 % RDI: 100% Kcal; 85% AA. Goal #1 Maintain body weight within +/ -3% of admission BWt during LOS. Goal #2 Reach and maintain acceptable chemistry lab values during LOS. Follow-Up By: 04/16/21 Additional Comments Continue monitoring TF tolerance, Hydration, and BM.
--- NOTE | 2021-04-03 12:41 | Progress Note ---
Subjective Date of service: 04/03/21 Principal diagnosis: Ac hypoxemic resp failure; AE-Asthma; SAI; Crohn's; COVID- 19; Pneumonia Interval history: Impression/Plan: #Acute kidney injury: dialysis dependent attempt HD again today minimal uf due to low bp plans for HD prn as hemodynamics allow will follow up lytes Assess daily for needs for additional sessions as hemodynamics Strict input and output Avoid nephrotoxin Renally dose medications Keep MAP > 65 # Hyperkalemia, treat medically, attempt to controlled with HD rec add daily kayexalate dosing #Respiratory failure Covid 19 infection currently intubated UF as tolerated with HD, limited by hemodynamic instability #Hyperphosphatemia to be monitored Dialysis has been initiated #Hyponatremia #diffuse rash--Hematology plans noted, plasma exchange noted #Overall prognosis remains poor, palliative care appropriate Subjective Principal diagnosis: Ac hypoxemic resp failure; AE-Asthma; SAI; Crohn's; COVID- 19; Pneumonia Interval history: Remains intubated. Objective - Exam exam deferred for preservation of PPE Objective - Vital Signs Vital signs: Vital Signs - 12hr 04/03/21 04/03/21 04/03/21 00:45 01:00 01:11 Temperature Pulse Rate 99 H 101 H Pulse Rate [ 106 H Anterior Bilateral Throughout] Pulse Rate [ From Monitor] Pulse Rate [ 105 H Throughout] Respiratory 17 15 Rate Respiratory 30 H Rate [Anterior Bilateral Throughout] Respiratory 30 H Rate [ Throughout] Blood Pressure 90/46 105/39 O2 Sat by Pulse 100 98 Oximetry 04/03/21 04/03/21 04/03/21 01:15 01:31 01:45 Temperature Pulse Rate 98 H 98 H 99 H Pulse Rate [ Anterior Bilateral Throughout] Pulse Rate [ From Monitor] Pulse Rate [ Throughout] Respiratory 15 17 29 H Rate Respiratory Rate [Anterior Bilateral Throughout] Respiratory Rate [ Throughout] Blood Pressure 105/39 105/39 105/39 O2 Sat by Pulse 100 98 97 Oximetry 04/03/21 04/03/21 04/03/21 02:00 02:15 02:31 Temperature Pulse Rate 101 H 101 H 101 H Pulse Rate [ Anterior Bilateral Throughout] Pulse Rate [ From Monitor] Pulse Rate [ Throughout] Respiratory 20 29 H 30 H Rate Respiratory Rate [Anterior Bilateral Throughout] Respiratory Rate [ Throughout] Blood Pressure 103/40 103/40 103/40 O2 Sat by Pulse 96 97 97 Oximetry 1104/03/21 04/03/21 02:45 03:00 03:15 Temperature Pulse Rate 97 H 100 H 101 H Pulse Rate [ Anterior Bilateral Throughout] Pulse Rate [ From Monitor] Pulse Rate [ Throughout] Respiratory 31 H 29 H 19 Rate Respiratory Rate [Anterior Bilateral Throughout] Respiratory Rate [ Throughout] Blood Pressure 103/40 88/30 88/30 O2 Sat by Pulse 98 95 95 Oximetry 04/03/21 04/03/21 04/03/21 03:31 03:45 03:46 Temperature Pulse Rate 102 H 101 H 100 H Pulse Rate [ Anterior Bilateral Throughout] Pulse Rate [ From Monitor] Pulse Rate [ Throughout] Respiratory 20 30 H Rate Respiratory Rate [Anterior Bilateral Throughout] Respiratory Rate [ Throughout] Blood Pressure 88/30 88/30 88/30 O2 Sat by Pulse 95 97 95 Oximetry 04/03/21 04/03/21 04/03/21 04:00 04:01 04:15 Temperature 98.6 F Pulse Rate 103 H 99 H 99 H Pulse Rate [ Anterior Bilateral Throughout] Pulse Rate [ 103 H From Monitor] Pulse Rate [ Throughout] Respiratory 30 H 30 H 27 H Rate Respiratory Rate [Anterior Bilateral Throughout] Respiratory Rate [ Throughout] Blood Pressure 88/30 88/30 O2 Sat by Pulse 97 97 96 Oximetry 04/03/21 04/03/21 04/03/21 04:31 04:45 05:01 Temperature Pulse Rate 99 H 99 H 100 H Pulse Rate [ Anterior Bilateral Throughout] Pulse Rate [ From Monitor] Pulse Rate [ Throughout] Respiratory 21 25 H 20 Rate Respiratory Rate [Anterior Bilateral Throughout] Respiratory Rate [ Throughout] Blood Pressure 88/30 88/30 88/30 O2 Sat by Pulse 98 98 97 Oximetry 04/03/21 04/03/21 04/03/21 05:15 05:31 05:45 Temperature Pulse Rate 100 H 99 H 98 H Pulse Rate [ Anterior Bilateral Throughout] Pulse Rate [ From Monitor] Pulse Rate [ Throughout] Respiratory 23 31 H 23 Rate Respiratory Rate [Anterior Bilateral Throughout] Respiratory Rate [ Throughout] Blood Pressure 88/30 88/30 88/30 O2 Sat by Pulse 97 98 98 Oximetry 04/03/21 04/03/21 04/03/21 06:01 06:15 06:31 Temperature Pulse Rate 96 H 96 H 99 H Pulse Rate [ Anterior Bilateral Throughout] Pulse Rate [ From Monitor] Pulse Rate [ Throughout] Respiratory 30 H 22 31 H Rate Respiratory Rate [Anterior Bilateral Throughout] Respiratory Rate [ Throughout] Blood Pressure 88/30 88/30 88/30 O2 Sat by Pulse 98 97 99 Oximetry 04/03/21 04/03/21 04/03/21 06:45 07:01 07:15 Temperature Pulse Rate 100 H 100 H 99 H Pulse Rate [ Anterior Bilateral Throughout] Pulse Rate [ From Monitor] Pulse Rate [ Throughout] Respiratory 31 H 31 H 26 H Rate Respiratory Rate [Anterior Bilateral Throughout] Respiratory Rate [ Throughout] Blood Pressure 88/30 88/30 88/30 O2 Sat by Pulse 99 98 98 Oximetry 04/03/21 04/03/21 04/03/21 07:31 07:45 08:00 Temperature 99.8 F H Pulse Rate 100 H 99 H 100 H Pulse Rate [ Anterior Bilateral Throughout] Pulse Rate [ From Monitor] Pulse Rate [ Throughout] Respiratory 29 H 32 H Rate Respiratory Rate [Anterior Bilateral Throughout] Respiratory Rate [ Throughout] Blood Pressure 88/30 88/30 O2 Sat by Pulse 99 99 Oximetry 04/03/21 04/03/21 04/03/21 08:01 08:15 08:29 Temperature Pulse Rate 100 H 107 H 105 H Pulse Rate [ Anterior Bilateral Throughout] Pulse Rate [ From Monitor] Pulse Rate [ Throughout] Respiratory 27 H 49 H Rate Respiratory Rate [Anterior Bilateral Throughout] Respiratory Rate [ Throughout] Blood Pressure 88/30 96/43 141/73 O2 Sat by Pulse 98 97 99 Oximetry 04/03/21 04/03/21 04/03/21 08:31 08:32 08:45 Temperature Pulse Rate 105 H 103 H Pulse Rate [ Anterior Bilateral Throughout] Pulse Rate [ From Monitor] Pulse Rate [ 105 H Throughout] Respiratory 22 28 H Rate Respiratory Rate [Anterior Bilateral Throughout] Respiratory 37 H Rate [ Throughout] Blood Pressure 96/43 96/43 O2 Sat by Pulse 100 99 Oximetry 04/03/21 04/03/21 04/03/21 09:01 09:15 09:31 Temperature Pulse Rate 100 H 102 H 101 H Pulse Rate [ Anterior Bilateral Throughout] Pulse Rate [ From Monitor] Pulse Rate [ Throughout] Respiratory 22 27 H 27 H Rate Respiratory Rate [Anterior Bilateral Throughout] Respiratory Rate [ Throughout] Blood Pressure 96/43 96/43 96/43 O2 Sat by Pulse 99 98 96 Oximetry 04/03/21 04/03/21 04/03/21 09:45 10:00 10:15 Temperature Pulse Rate 101 H 101 H 100 H Pulse Rate [ Anterior Bilateral Throughout] Pulse Rate [ From Monitor] Pulse Rate [ Throughout] Respiratory 31 H 26 H 26 H Rate Respiratory Rate [Anterior Bilateral Throughout] Respiratory Rate [ Throughout] Blood Pressure 96/43 106/42 106/42 O2 Sat by Pulse 95 94 95 Oximetry 04/03/21 04/03/21 04/03/21 10:31 10:45 10:55 Temperature 97.5 F L Pulse Rate 107 H 103 H Pulse Rate [ Anterior Bilateral Throughout] Pulse Rate [ From Monitor] Pulse Rate [ Throughout] Respiratory 36 H 31 H Rate Respiratory Rate [Anterior Bilateral Throughout] Respiratory Rate [ Throughout] Blood Pressure 106/42 106/42 O2 Sat by Pulse 93 99 Oximetry 04/03/21 04/03/21 04/03/21 11:01 11:15 11:31 Temperature Pulse Rate 101 H 102 H 104 H Pulse Rate [ Anterior Bilateral Throughout] Pulse Rate [ From Monitor] Pulse Rate [ Throughout] Respiratory 30 H 30 H 32 H Rate Respiratory Rate [Anterior Bilateral Throughout] Respiratory Rate [ Throughout] Blood Pressure 106/42 106/42 106/42 O2 Sat by Pulse 99 98 97 Oximetry 04/03/21 04/03/21 04/03/21 11:45 12:00 12:03 Temperature Pulse Rate 104 H 103 H 104 H Pulse Rate [ Anterior Bilateral Throughout] Pulse Rate [ From Monitor] Pulse Rate [ Throughout] Respiratory 30 H 32 H Rate Respiratory Rate [Anterior Bilateral Throughout] Respiratory Rate [ Throughout] Blood Pressure 106/42 106/50 122/66 O2 Sat by Pulse 96 94 97 Oximetry 04/03/21 04/03/21 12:15 12:31 Temperature Pulse Rate 102 H 105 H Pulse Rate [ Anterior Bilateral Throughout] Pulse Rate [ From Monitor] Pulse Rate [ Throughout] Respiratory 35 H 32 H Rate Respiratory Rate [Anterior Bilateral Throughout] Respiratory Rate [ Throughout] Blood Pressure 106/50 106/42 O2 Sat by Pulse 99 98 Oximetry - Lab 04/03/21 04:30 04/03/21 04:30 Most recent lab results ABG pH 7.195 pH Units (7.350-7.450) L* 04/03/21 08:31 ABG pCO2 54.7 mm Hg 04/03/21 08:31 ABG pO2 102.6 mm Hg (80.0-90.0) H 04/03/21 08:31 ABG HCO3 20.6 mmol/L (20.0-26.0) 04/03/21 08:31 ABG O2 Saturation 96.8 % (95.0-99.0) 04/03/21 08:31 Calcium 7.6 mg/dL (8.4-10.2) L 04/03/21 04:30 Phosphorus 10.30 mg/dL (2.5-4.5) H 04/03/21 04:30 Magnesium 2.10 mg/dL (1.7-2.3) 04/03/21 04:30 Urine Creatinine 40.1 mg/dL (0.1-20.0) H 03/14/21 17:50 Urine Sodium 124 mmol/L 03/14/21 17:50 Medications & Allergies - Medications Allergies/Adverse Reactions: Allergies oxycodone HCl [From Percocet] Allergy (Severe, Verified 03/30/21 14:01) Swelling hydrocodone bitartrate [From Vicodin] Allergy (Verified 03/31/21 08:20) Swelling ALLERGY TO TYLENOL VS OXYCODONE ACTIVE ORDER REMOVED FROM [facility] SINCE UNABLE TO CONFIRM WITH FAMILY Home Medications: Home Medications Medication Instructions Recorded Confirmed Last Taken Type Chlorhexidine Mouthwash [Peridex] 15 ml MM BID #1 bottle 10/11/20 03/13/21 Unknown Rx Clindamycin [Clindamycin CAP] 300 mg PO Q8H #21 cap 10/11/20 03/13/21 Unknown Rx Naproxen 500 mg PO Q12H PRN #12 tablet 10/11/20 03/13/21 Unknown Rx Butalb/Acetamin/Caff 50-325-40 1 - 2 tab PO Q6HR PRN #15 tab 12/05/20 03/13/21 Unknown Rx [Fioricet 50-325-40] Famotidine [Pepcid] 20 mg PO BID #30 tablet 12/05/20 03/13/21 Unknown Rx Ketorolac [Toradol] 10 mg PO Q8H PRN #20 tablet 12/05/20 03/13/21 Unknown Rx Ondansetron [Zofran Odt] 4 mg PO Q6HR PRN #20 tab.rapdis 12/05/20 03/13/21 Unknown Rx Albuterol Sulfate [Proair 90 mcg IH Q4HR PRN #2 [email or web address] 01/01/21 03/13/21 Unknown Rx Respiclick] Mupirocin [Bactroban 2% OINT] 1 applic TP BID 7 Days #1 tube 01/01/21 03/13/21 Unknown Rx Triamcinolone Aceton 0.1% (Nf) 1 applic TP BID 14 Days #1 tube 01/01/21 03/13/21 Unknown Rx [Kenalog (NF)] predniSONE [Deltasone] 40 mg PO QDAY #8 tab 01/01/21 03/13/21 Unknown Rx Active Medications: Generic Name Dose Route Start Last Admin Trade Name Freq PRN Reason Stop Dose Admin Acetaminophen 650 mg 03/31/21 12:41 04/02/21 14:30 Acetaminophen 325 Mg/10.15 Ml Oral Liqd Unit Dose FEEDTUBE 650 mg Q6H PRN Administration TEMP >/=100.4 Albumin Human 25 gm 04/01/21 08:19 04/01/21 16:23 Albumin Human 25% (25 Gm/100 Ml) Inj IV 25 gm KARLOS PRN Administration Hypotension Albuterol 2.5 mg 03/19/21 00:53 Albuterol 2.5 Mg/3 Ml Nebu IH Q4HRT PRN Shortness Of Breath Albuterol/Ipratropium 1 ampul 03/19/21 08:00 04/03/21 08:32 Ipratropium/Albuterol Sulfate 3 Ml Ampul.Neb IH 1 ampul Q6HRT INESSA Administration Lipase/Protease/Amylase 1 each 03/15/21 11:42 Lipase 10,500/Protease 25,000/Amylase 43,750 (Units) Dr White FEEDTUBE PRN PRN For Clogged Feeding Tube Apixaban 2.5 mg 03/29/21 13:00 04/03/21 10:42 Apixaban 2.5 Mg Tab PO 2.5 mg Q12HR INESSA Administration Protocol Ascorbic Acid 500 mg 03/14/21 22:00 04/03/21 10:42 Ascorbic Acid 500 Mg Tab PO 500 mg BID INESSA Administration Dextrose 50 ml 03/14/21 11:02 03/15/21 11:40 Dextrose 50% In Water (25gm) 50 Ml Syringe IV 50 ml Q30MIN PRN Administration Hypoglycemia Protocol Famotidine 10 mg 03/17/21 22:00 04/03/21 10:42 Famotidine 10 Mg Tab PO 10 mg BID INESSA Administration Fentanyl 50 mcg 03/15/21 10:43 03/28/21 09:25 Fentanyl 100 Mcg/2 Ml Inj IV 50 mcg Q10MIN PRN Administration ANALGESIA Hydrophilic Ointment 1 applic 03/14/21 17:50 Lip Therapy Vaseline TP Q2HR PRN Dry Lips Propofol 1,000 mg in 100 mls @ 4.123 mls/hr 03/15/21 11:00 04/03/21 12:22 Diprivan 10 Mg/Ml IV 35 mcg/kg/min TITR INESSA 28.862 mls/hr Administration Protocol 5 MCG/KG/MIN Fentanyl Citrate 2,000 mcg in 100 mls @ 6.872 mls/hr 03/15/21 11:00 04/03/21 12:23 Fentanyl Drip Premix IV 4 mcg/kg/hr TITR INESSA 27.488 mls/hr Administration Protocol 1 MCG/KG/HR Sodium Chloride 500 mls @ 1 mls/hr 03/16/21 17:19 Nacl 0.9% 500 Ml IV DIRECT PRN ARTERIAL LINE FLUSH NORepinephrine/NS 8 MG-250 ML 8 mg in 250 mls @ 3.75 mls/hr 03/23/21 11:00 04/03/21 12:31 Norepinephrine/Ns 8 Mg-250 Ml (Double Conc) IV 14 mcg/min TITRATE INESSA 26.25 mls/hr Titration Protocol 2 MCG/MIN Midazolam HCl 100 mg/ Sodium 100 mls @ 1 mls/hr 03/30/21 15:00 04/02/21 19:40 Chloride IV 4 mg/hr TITR INESSA 4 mls/hr Titration Protocol 1 MG/HR Vasopressin 20 unit/ Sodium 101 mls @ 9.09 mls/hr 03/30/21 20:00 04/03/21 10:45 Chloride IV 0.03 units/min TITR INESSA 9.09 mls/hr Administration 0.03 UNITS/MIN Phenylephrine HCl 100 mg/ 100 mls @ 3 mls/hr 03/31/21 04:00 04/03/21 12:28 Sodium Chloride IV 45 mcg/min TITR INESSA 2.7 mls/hr Titration Protocol 50 MCG/MIN Sodium Chloride 100 mls @ 999 mls/hr 04/01/21 08:19 Nacl 0.9% IV KARLOS PRN Hypotension Sodium Bicarbonate 150 meq/ 1,150 mls @ 75 mls/hr 04/02/21 22:00 04/02/21 22:59 Dextrose IV 75 mls/hr DIRECT INESSA Administration Insulin Human Lispro 0 unit 03/14/21 12:00 04/03/21 12:22 Insulin Lispro 100 Unit/Ml SUB-Q 3 unit Q6HR INESSA Administration Protocol Lorazepam 1 mg 03/13/21 19:40 03/30/21 19:58 Lorazepam 2 Mg/Ml Vial IV 1 mg Q4H PRN Administration Anxiety Methylprednisolone Sodium Succinate 125 mg 04/03/21 06:00 04/03/21 06:28 Methylprednisolone Sod Succinate 125 Mg/2 Ml Inj IV 04/04/21 05:59 125 mg Q8HR INESSA Administration Methylprednisolone Sodium Succinate 80 mg 04/04/21 22:00 Methylprednisolone Sod Succinate 125 Mg/2 Ml Inj IV Q8HR INESSA Midazolam HCl 2 mg 03/30/21 14:19 03/30/21 14:30 Midazolam 2 Mg/2 Ml Inj IV 2 mg Q10MIN PRN Administration Sedation Multi-Ingred Cream/Lotion/Oil/Oint 1 applic 03/14/21 17:50 04/02/21 14:31 Mineral Oil/Petrolatum, White Ophth Oint 3.5 Gm OU 1 applic Q4HR PRN Administration Dry Eye(s) Ondansetron HCl 4 mg 03/13/21 19:30 03/21/21 12:05 Ondansetron 4 Mg/2 Ml Inj IV 4 mg Q8H PRN Administration Nausea And Vomiting Senna/Docusate Sodium 1 tab 03/14/21 22:00 04/03/21 10:42 Sennosides/Docusate Sodium 8.6/50 Mg Tab FEEDTUBE 1 tab BID INESSA Administration Simple Syrup 15 ml 03/15/21 11:42 Simple Syrup 15 Ml FEEDTUBE PRN PRN Hypoglycemia Simple Syrup 30 ml 03/15/21 11:42 Simple Syrup 15 Ml FEEDTUBE PRN PRN Hypoglycemia Sodium Bicarbonate 325 mg 03/15/21 11:42 03/21/21 17:21 Sodium Bicarbonate 325 Mg Tab FEEDTUBE 325 mg PRN PRN Administration For Clogged Feeding Tube Sodium Chloride 10 ml 03/13/21 22:00 04/03/21 10:43 Sodium Chloride 0.9% 10 Ml Flush Syringe IV 10 ml BID INESSA Administration Sodium Chloride 10 ml 03/13/21 19:30 Sodium Chloride 0.9% 10 Ml Flush Syringe IV PRN PRN LINE FLUSH Zinc Sulfate 220 mg 03/14/21 22:00 04/03/21 10:42 Zinc Sulfate 220 Mg Cap PO 220 mg BID INESSA Administration
[2021-04-03] MEDS: SODIUM BICARBONATE 150 MEQ in DEXTROSE 5% IN WATER 1,000 ML IV SCH (13:42)
[2021-04-03] MEDS ORDERED: SODIUM POLYSTYRENE 15 GM/60 ML ORAL LIQD PO ONE (14:00)
--- NOTE | 2021-04-03 15:42 | Progress Note ---
Assessment and Plan Acute hypoxemic respiratory failure Acute asthma exacerbation Morbid obesity Crohn's disease Metabolic acidosis Acute kidney injury Coronavirus infection Pneumonia (CAP) Oropharyngeal dysphagia Obesity, if not mentioned above (Taheerah will need a tracheostomy once more stable) - will repeat COVID-19 test (plan to stop isolation after day 21) - ? steroid leucocytosis - continue Solumedrol taper - hyperkalemia treated medically - will plan tentative daily Kayexalate if persistent - continue current set minute volumes - repeat ABG at 9pm and address - stop Sodium bicarbonate drip after 2 bags in then re-evaluate - continue care as below otherwise; - prn cooling blanket (fevers better) - continue to wean vasopressors for target MAP > 65 mmHg - nephrology input appreciated; HD/UF for toxin and volume clearance - HD/UF sessions per nephrology prescription - continue Daily SAT and SBT assessment as tolerated - continue to wean supplemental oxygen for target O2 sat's > 90% acutely - VAP bundle addressed - continue lung protective strategies - continue bronchodilators with pulmonary hygiene per RT - wean per pulmonary driven protocols otherwise - continue accuchecks with glycemic control per SSI (While critically ill target blood glucose of 140-180 mg/dL; avoid hypoglycemia) - sedation prn for target RASS 0 to -1 - avoid nephrotoxins, renally dose all medications - continue to avoid benzodiazepine's, reduce the possibility of delirium - AB's per ID rec's (s/p Cefepime) - prn analgesia per CPOT score - Maintenance of sleep-wake cycle, avoid delirium - continue enteral nutritional support at goal rate as tolerated - G.I. & VTE prophylaxis - PT/OT/ROM exercises - continue mobility protocols for pressure ulcer prophylaxis - Monitor hemodynamics closely - continue other care per attending / other consultants - discharge planning ongoing concurrently COVID SPECIFIC INTERVENTIONS - Remdesivir as per ID/Pulmonary developed protocols (not a candidate) - continue systemic steroids for severe COVID-19 infection empirically - follow repeat COVID tests results - zinc and vitamin C supplementation - Monitor inflammatory markers per facility protocol - ferritin, Ddimer, CRP - therapeutic anticoagulation per system Protocol based on d-dimer and clinical considerations (VTE prophylaxis) - Continue contact and airborne isolation .... Re-evaluate in am & prn CONDITION: CRITICAL PROGNOSIS: GUARDED CODE STATUS: FULL CODE The high probability of a clinically significant, sudden or life-threatening deterioration of the [respiratory, cardiovascular, renal & neurologic] system(s) required my full and direct attention, intervention and personal management. The aggregate critical care time was [32] minutes without overlap. Time includes spent on; [x] Data Review and interpretation [x] Patient assessment and monitoring of vital signs [x] Documentation [x] Medication orders and management Subjective Date of service: 04/03/21 Principal diagnosis: Ac hypoxemic resp failure; AE-Asthma; SAI; Crohn's; COVID- 19; Pneumonia Interval history: Patient is seen today for: Acute hypoxemic respiratory failure; AE-Asthma; SAI; Crohn's disease; COVID-19 infection; Pneumonia (CAP) Seen and examined at bedside; 24hour events reviewed; nursing and respiratory care staff consulted; no adverse overnight events reported to me; resting in bed; remains on MVS; acidosis is persistent and started on a bicarbonate drip overnight; no emesis or overt aspiration; Objective Vital Signs - 12hr 04/03/21 04/03/21 04/03/21 03:45 03:46 04:00 Temperature 98.6 F Pulse Rate 101 H 100 H 103 H Pulse Rate [ 103 H From Monitor] Pulse Rate [ Throughout] Respiratory 30 H 30 H Rate Respiratory Rate [ Throughout] Blood Pressure 88/30 88/30 O2 Sat by Pulse 97 95 97 Oximetry O2 Sat by Pulse Oximetry [ Anterior Bilateral Throughout] O2 Sat by Pulse Oximetry [ Throughout] 04/03/21 04/03/21 04/03/21 04:01 04:15 04:31 Temperature Pulse Rate 99 H 99 H 99 H Pulse Rate [ From Monitor] Pulse Rate [ Throughout] Respiratory 30 H 27 H 21 Rate Respiratory Rate [ Throughout] Blood Pressure 88/30 88/30 88/30 O2 Sat by Pulse 97 96 98 Oximetry O2 Sat by Pulse Oximetry [ Anterior Bilateral Throughout] O2 Sat by Pulse Oximetry [ Throughout] 04/03/21 04/03/21 04/03/21 04:45 05:01 05:15 Temperature Pulse Rate 99 H 100 H 100 H Pulse Rate [ From Monitor] Pulse Rate [ Throughout] Respiratory 25 H 20 23 Rate Respiratory Rate [ Throughout] Blood Pressure 88/30 88/30 88/30 O2 Sat by Pulse 98 97 97 Oximetry O2 Sat by Pulse Oximetry [ Anterior Bilateral Throughout] O2 Sat by Pulse Oximetry [ Throughout] 04/03/21 04/03/2121 05:31 05:45 06:01 Temperature Pulse Rate 99 H 98 H 96 H Pulse Rate [ From Monitor] Pulse Rate [ Throughout] Respiratory 31 H 23 30 H Rate Respiratory Rate [ Throughout] Blood Pressure 88/30 88/30 88/30 O2 Sat by Pulse 98 98 98 Oximetry O2 Sat by Pulse Oximetry [ Anterior Bilateral Throughout] O2 Sat by Pulse Oximetry [ Throughout] 04/03/21 04/03/21 04/03/21 06:15 06:31 06:45 Temperature Pulse Rate 96 H 99 H 100 H Pulse Rate [ From Monitor] Pulse Rate [ Throughout] Respiratory 22 31 H 31 H Rate Respiratory Rate [ Throughout] Blood Pressure 88/30 88/30 88/30 O2 Sat by Pulse 97 99 99 Oximetry O2 Sat by Pulse Oximetry [ Anterior Bilateral Throughout] O2 Sat by Pulse Oximetry [ Throughout] 04/03/21 04/03/21 04/03/21 07:01 07:15 07:31 Temperature Pulse Rate 100 H 99 H 100 H Pulse Rate [ From Monitor] Pulse Rate [ Throughout] Respiratory 31 H 26 H 29 H Rate Respiratory Rate [ Throughout] Blood Pressure 88/30 88/30 88/30 O2 Sat by Pulse 98 98 99 Oximetry O2 Sat by Pulse Oximetry [ Anterior Bilateral Throughout] O2 Sat by Pulse Oximetry [ Throughout] 04/03/21 04/03/21 04/03/21 07:45 08:00 08:01 Temperature 99.8 F H Pulse Rate 99 H 100 H 100 H Pulse Rate [ 100 H From Monitor] Pulse Rate [ Throughout] Respiratory 32 H 41 H 27 H Rate Respiratory Rate [ Throughout] Blood Pressure 88/30 88/30 O2 Sat by Pulse 99 98 98 Oximetry O2 Sat by Pulse Oximetry [ Anterior Bilateral Throughout] O2 Sat by Pulse Oximetry [ Throughout] 04/03/21 04/03/21 04/03/21 08:15 08:29 08:31 Temperature Pulse Rate 107 H 105 H 105 H Pulse Rate [ From Monitor] Pulse Rate [ Throughout] Respiratory 49 H 22 Rate Respiratory Rate [ Throughout] Blood Pressure 96/43 141/73 96/43 O2 Sat by Pulse 97 99 100 Oximetry O2 Sat by Pulse Oximetry [ Anterior Bilateral Throughout] O2 Sat by Pulse Oximetry [ Throughout] 04/03/21 04/03/21 04/03/21 08:32 08:45 09:01 Temperature Pulse Rate 103 H 100 H Pulse Rate [ From Monitor] Pulse Rate [ 105 H Throughout] Respiratory 28 H 22 Rate Respiratory 37 H Rate [ Throughout] Blood Pressure 96/43 96/43 O2 Sat by Pulse 99 99 Oximetry O2 Sat by Pulse Oximetry [ Anterior Bilateral Throughout] O2 Sat by Pulse Oximetry [ Throughout] 04/03/21 04/03/21 04/03/21 09:15 09:31 09:45 Temperature Pulse Rate 102 H 101 H 101 H Pulse Rate [ From Monitor] Pulse Rate [ Throughout] Respiratory 27 H 27 H 31 H Rate Respiratory Rate [ Throughout] Blood Pressure 96/43 96/43 96/43 O2 Sat by Pulse 98 96 95 Oximetry O2 Sat by Pulse Oximetry [ Anterior Bilateral Throughout] O2 Sat by Pulse Oximetry [ Throughout] 04/03/21 04/03/21 04/03/21 10:00 10:15 10:31 Temperature Pulse Rate 101 H 100 H 107 H Pulse Rate [ From Monitor] Pulse Rate [ Throughout] Respiratory 26 H 26 H 36 H Rate Respiratory Rate [ Throughout] Blood Pressure 106/42 106/42 106/42 O2 Sat by Pulse 94 95 93 Oximetry O2 Sat by Pulse Oximetry [ Anterior Bilateral Throughout] O2 Sat by Pulse Oximetry [ Throughout] 04/03/21 04/03/21 04/03/21 10:45 10:55 11:01 Temperature 97.5 F L Pulse Rate 103 H 101 H Pulse Rate [ From Monitor] Pulse Rate [ Throughout] Respiratory 31 H 30 H Rate Respiratory Rate [ Throughout] Blood Pressure 106/42 106/42 O2 Sat by Pulse 99 99 Oximetry O2 Sat by Pulse Oximetry [ Anterior Bilateral Throughout] O2 Sat by Pulse Oximetry [ Throughout] 04/03/21 04/03/21 04/03/21 11:15 11:31 11:45 Temperature Pulse Rate 102 H 104 H 104 H Pulse Rate [ From Monitor] Pulse Rate [ Throughout] Respiratory 30 H 32 H 30 H Rate Respiratory Rate [ Throughout] Blood Pressure 106/42 106/42 106/42 O2 Sat by Pulse 98 97 96 Oximetry O2 Sat by Pulse Oximetry [ Anterior Bilateral Throughout] O2 Sat by Pulse Oximetry [ Throughout] 04/03/21 04/03/21 04/03/21 12:00 12:03 12:15 Temperature 99.4 F Pulse Rate 102 H 104 H 102 H Pulse Rate [ 102 H From Monitor] Pulse Rate [ Throughout] Respiratory 30 H 35 H Rate Respiratory Rate [ Throughout] Blood Pressure 106/50 122/66 106/50 O2 Sat by Pulse 99 97 99 Oximetry O2 Sat by Pulse Oximetry [ Anterior Bilateral Throughout] O2 Sat by Pulse Oximetry [ Throughout] 04/03/21 04/03/21 04/03/21 12:31 12:45 13:01 Temperature Pulse Rate 105 H 104 H 101 H Pulse Rate [ From Monitor] Pulse Rate [ Throughout] Respiratory 32 H 32 H 32 H Rate Respiratory Rate [ Throughout] Blood Pressure 106/42 106/42 106/42 O2 Sat by Pulse 98 97 96 Oximetry O2 Sat by Pulse Oximetry [ Anterior Bilateral Throughout] O2 Sat by Pulse Oximetry [ Throughout] 04/03/21 04/03/21 04/03/21 13:15 13:31 13:45 Temperature Pulse Rate 103 H 102 H 101 H Pulse Rate [ From Monitor] Pulse Rate [ Throughout] Respiratory 31 H 30 H 30 H Rate Respiratory Rate [ Throughout] Blood Pressure 106/42 106/50 106/50 O2 Sat by Pulse 96 97 97 Oximetry O2 Sat by Pulse Oximetry [ Anterior Bilateral Throughout] O2 Sat by Pulse Oximetry [ Throughout] 04/03/21 04/03/21 04/03/21 14:00 14:15 14:31 Temperature Pulse Rate 101 H 100 H 101 H Pulse Rate [ From Monitor] Pulse Rate [ Throughout] Respiratory 30 H 30 H 30 H Rate Respiratory Rate [ Throughout] Blood Pressure 100/42 100/42 100/42 O2 Sat by Pulse 94 96 96 Oximetry O2 Sat by Pulse Oximetry [ Anterior Bilateral Throughout] O2 Sat by Pulse Oximetry [ Throughout] 04/03/21 04/03/21 04/03/21 14:45 14:50 15:00 Temperature 99.4 F Pulse Rate 99 H 108 H 101 H Pulse Rate [ From Monitor] Pulse Rate [ Throughout] Respiratory 31 H 31 H Rate Respiratory Rate [ Throughout] Blood Pressure 100/42 115/56 132/75 O2 Sat by Pulse 97 Oximetry O2 Sat by Pulse 100 Oximetry [ Anterior Bilateral Throughout] O2 Sat by Pulse 100 Oximetry [ Throughout] 04/03/21 04/03/21 04/03/21 15:01 15:15 15:17 Temperature Pulse Rate 100 H 101 H 108 H Pulse Rate [ From Monitor] Pulse Rate [ Throughout] Respiratory 31 H Rate Respiratory Rate [ Throughout] Blood Pressure 100/42 129/70 121/56 O2 Sat by Pulse 98 94 Oximetry O2 Sat by Pulse Oximetry [ Anterior Bilateral Throughout] O2 Sat by Pulse Oximetry [ Throughout] 04/03/21 04/03/21 15:19 15:30 Temperature Pulse Rate 100 H Pulse Rate [ From Monitor] Pulse Rate [ 108 H Throughout] Respiratory Rate Respiratory 31 H Rate [ Throughout] Blood Pressure 132/73 O2 Sat by Pulse Oximetry O2 Sat by Pulse Oximetry [ Anterior Bilateral Throughout] O2 Sat by Pulse Oximetry [ Throughout] Constitutional: appears uncomfortable, other (morbidly obese female with mild ventilator dyssynchrony) Eyes: non-icteric, other (scleral erythema / bleeding is improving) ENT: oropharynx moist, other (ETT 25 cm BALJINDER) Neck: supple, no lymphadenopathy, no JVD, other (large circumference) Effort: mildly labored Ascultation: Bilateral: diminished breath sounds, rhonchi Percussion: Bilateral: not dull Cardiovascular: regular rate and rhythm Gastrointestinal: normoactive bowel sounds, soft, non-tender, non-distended (protuberant) Integumentary: rash ( ), other Extremities: no cyanosis, pulses normal, no ischemia or petechiae, edema (trace peripheral) Neurologic: non-focal exam (grossly), pupils equal and round, CN II-XII normal, motor strength normal and, other (moves all extremities spontaneously) Psychiatric: other (unasble to assess) CBC and BMP: 04/03/21 04:30 04/03/21 04:30 ABG, PT/INR, D-dimer: ABG ABG pH 7.195 pH Units (7.350-7.450) L* 04/03/21 08:31 POC ABG pCO2 Cancelled 04/02/21 20:40 ABG pCO2 54.7 mm Hg 04/03/21 08:31 POC ABG pO2 Cancelled 04/02/21 20:40 ABG pO2 102.6 mm Hg (80.0-90.0) H 04/03/21 08:31 POC ABG HCO3 Cancelled 04/02/21 20:40 ABG O2 Saturation 96.8 % (95.0-99.0) 04/03/21 08:31 PT/INR, D-dimer PT 16.0 Sec. (12.2-14.9) H 04/02/21 04:00 INR 1.16 (0.87-1.13) H 04/02/21 04:00 D-Dimer 2607.12 ng/mlDDU (0-234) H 03/30/21 04:00 Abnormal lab findings: Abnormal Labs 03/13/21 03/13/21 03/13/21 13:26 13:26 15:40 WBC RBC Hgb Hct MCH 27 L RDW 17.0 H Plt Count Lymph % (Auto) [place] # (Auto) Eos # (Auto) Seg Neutrophils % Eosinophils % (Manual) Basophils % (Manual) Seg Neutrophils # Seg Neutrophils # Man Lymphocytes # (Manual) Eosinophils # (Manual) Basophils # (Manual) Percent Retic PT INR Fibrinogen D-Dimer ABG pH POC ABG pCO2 POC ABG pO2 ABG pO2 ABG HCO3 ABG O2 Saturation ABG Base Excess ABG Hemoglobin ABG Oxyhemoglobin ABG Sodium ABG Potassium ABG Chloride ABG Glucose Oxyhemoglobin Carboxyhemoglobin Sodium 136 L Potassium Chloride Carbon Dioxide BUN Creatinine Glucose 125 H 130 H POC Glucose Hemoglobin A1c Calcium Phosphorus Magnesium AST ALT Alkaline Phosphatase Lactate Dehydrogenase 235 H C-Reactive Protein 4.30 H Total Protein Albumin Triglycerides Arterial Blood Glucose Arterial Blood Ionized Calcium Urine Creatinine Random Vancomycin Coronavirus (PCR) Crossmatch 03/13/21 03/14/21 03/14/21 21:33 03:35 06:21 WBC 20.0 H RBC Hgb Hct MCH 27 L RDW 17.5 H Plt Count Lymph % (Auto) 7.8 L [place] # (Auto) 1.3 H Eos # (Auto) Seg Neutrophils % 85.4 H Eosinophils % (Manual) Basophils % (Manual) Seg Neutrophils # 17.1 H Seg Neutrophils # Man Lymphocytes # (Manual) Eosinophils # (Manual) Basophils # (Manual) Percent Retic PT INR Fibrinogen D-Dimer ABG pH 7.323 L 7.234 L POC ABG pCO2 POC ABG pO2 ABG pO2 69.8 L ABG HCO3 ABG O2 Saturation 92.9 L 94.9 L ABG Base Excess -3.3 L -5.4 L ABG Hemoglobin ABG Oxyhemoglobin ABG Sodium ABG Potassium ABG Chloride ABG Glucose Oxyhemoglobin 91.2 L 93.2 L Carboxyhemoglobin Sodium Potassium Chloride Carbon Dioxide BUN Creatinine Glucose POC Glucose Hemoglobin A1c Calcium Phosphorus Magnesium AST ALT Alkaline Phosphatase Lactate Dehydrogenase C-Reactive Protein Total Protein Albumin Triglycerides Arterial Blood Glucose Arterial Blood Ionized Calcium Urine Creatinine Random Vancomycin Coronavirus (PCR) Crossmatch 03/14/21 03/14/21 03/14/21 06:21 07:47 11:21 WBC RBC Hgb Hct MCH RDW Plt Count Lymph % (Auto) [place] # (Auto) Eos # (Auto) Seg Neutrophils % Eosinophils % (Manual) Basophils % (Manual) Seg Neutrophils # Seg Neutrophils # Man Lymphocytes # (Manual) Eosinophils # (Manual) Basophils # (Manual) Percent Retic PT INR Fibrinogen D-Dimer ABG pH POC ABG pCO2 POC ABG pO2 ABG pO2 ABG HCO3 ABG O2 Saturation ABG Base Excess ABG Hemoglobin ABG Oxyhemoglobin ABG Sodium ABG Potassium ABG Chloride ABG Glucose Oxyhemoglobin Carboxyhemoglobin Sodium 136 L 136 L Potassium 6.2 H* D 5.4 H Chloride Carbon Dioxide 21 L 21 L BUN Creatinine 1.5 H D 1.8 H Glucose 144 H 141 H POC Glucose 147 H Hemoglobin A1c Calcium Phosphorus Magnesium AST ALT Alkaline Phosphatase Lactate Dehydrogenase C-Reactive Protein Total Protein 8.7 H 9.2 H Albumin 3.8 L Triglycerides Arterial Blood Glucose Arterial Blood Ionized Calcium Urine Creatinine Random Vancomycin Coronavirus (PCR) Crossmatch 03/14/21 03/14/21 03/14/21 17:29 17:50 18:35 WBC RBC Hgb Hct MCH RDW Plt Count Lymph % (Auto) [place] # (Auto) Eos # (Auto) Seg Neutrophils % Eosinophils % (Manual) Basophils % (Manual) Seg Neutrophils # Seg Neutrophils # Man Lymphocytes # (Manual) Eosinophils # (Manual) Basophils # (Manual) Percent Retic PT INR Fibrinogen D-Dimer ABG pH POC ABG pCO2 POC ABG pO2 ABG pO2 ABG HCO3 ABG O2 Saturation ABG Base Excess ABG Hemoglobin ABG Oxyhemoglobin ABG Sodium ABG Potassium ABG Chloride ABG Glucose Oxyhemoglobin Carboxyhemoglobin Sodium 135 L Potassium 6.4 H* Chloride Carbon Dioxide 15 L BUN 26 H Creatinine 3.4 H D Glucose 165 H POC Glucose 209 H Hemoglobin A1c Calcium Phosphorus Magnesium AST ALT Alkaline Phosphatase Lactate Dehydrogenase C-Reactive Protein Total Protein Albumin Triglycerides Arterial Blood Glucose Arterial Blood Ionized Calcium Urine Creatinine 40.1 H Random Vancomycin Coronavirus (PCR) Crossmatch 03/14/21 03/14/21 03/14/21 18:46 22:23 23:52 WBC RBC Hgb Hct MCH RDW Plt Count Lymph % (Auto) [place] # (Auto) Eos # (Auto) Seg Neutrophils % Eosinophils % (Manual) Basophils % (Manual) Seg Neutrophils # Seg Neutrophils # Man Lymphocytes # (Manual) Eosinophils # (Manual) Basophils # (Manual) Percent Retic PT INR Fibrinogen D-Dimer ABG pH 7.270 L POC ABG pCO2 POC ABG pO2 63.4 L ABG pO2 ABG HCO3 ABG O2 Saturation ABG Base Excess ABG Hemoglobin ABG Oxyhemoglobin 90.2 L ABG Sodium 134.9 L ABG Potassium 5.3 H ABG Chloride ABG Glucose 134 H Oxyhemoglobin Carboxyhemoglobin Sodium 136 L Potassium 5.2 H Chloride Carbon Dioxide 20 L BUN 29 H Creatinine 3.6 H Glucose 236 H POC Glucose 128 H Hemoglobin A1c Calcium Phosphorus Magnesium AST ALT Alkaline Phosphatase Lactate Dehydrogenase C-Reactive Protein Total Protein Albumin 3.2 L Triglycerides Arterial Blood Glucose 134 H Arterial Blood Ionized Calcium Urine Creatinine Random Vancomycin Coronavirus (PCR) Crossmatch 03/14/21 03/15/21 03/15/21 Unknown 05:00 05:09 WBC 22.5 H RBC Hgb Hct MCH 27 L RDW 17.6 H Plt Count Lymph % (Auto) [place] # (Auto) Eos # (Auto) Seg Neutrophils % Eosinophils % (Manual) Basophils % (Manual) Seg Neutrophils # Seg Neutrophils # Man Lymphocytes # (Manual) Eosinophils # (Manual) Basophils # (Manual) Percent Retic PT INR Fibrinogen D-Dimer ABG pH POC ABG pCO2 POC ABG pO2 ABG pO2 ABG HCO3 ABG O2 Saturation ABG Base Excess ABG Hemoglobin ABG Oxyhemoglobin ABG Sodium ABG Potassium ABG Chloride ABG Glucose Oxyhemoglobin Carboxyhemoglobin Sodium Potassium Chloride Carbon Dioxide BUN Creatinine Glucose POC Glucose 116 H Hemoglobin A1c Calcium Phosphorus Magnesium AST ALT Alkaline Phosphatase Lactate Dehydrogenase C-Reactive Protein Total Protein Albumin Triglycerides Arterial Blood Glucose Arterial Blood Ionized Calcium Urine Creatinine Random Vancomycin Coronavirus (PCR) Positive A Crossmatch 03/15/21 03/15/21 03/15/21 05:09 05:09 05:09 WBC RBC Hgb Hct MCH RDW Plt Count Lymph % (Auto) [place] # (Auto) Eos # (Auto) Seg Neutrophils % Eosinophils % (Manual) Basophils % (Manual) Seg Neutrophils # Seg Neutrophils # Man Lymphocytes # (Manual) Eosinophils # (Manual) Basophils # (Manual) Percent Retic PT INR Fibrinogen D-Dimer ABG pH POC ABG pCO2 POC ABG pO2 ABG pO2 ABG HCO3 ABG O2 Saturation ABG Base Excess ABG Hemoglobin ABG Oxyhemoglobin ABG Sodium ABG Potassium ABG Chloride ABG Glucose Oxyhemoglobin Carboxyhemoglobin Sodium 136 L Potassium 6.5 H* D Chloride Carbon Dioxide 17 L BUN 41 H Creatinine 5.3 H Glucose 128 H POC Glucose Hemoglobin A1c 6.3 H Calcium Phosphorus Magnesium AST ALT Alkaline Phosphatase Lactate Dehydrogenase C-Reactive Protein 12.10 H Total Protein Albumin 3.1 L Triglycerides Arterial Blood Glucose Arterial Blood Ionized Calcium Urine Creatinine Random Vancomycin Coronavirus (PCR) Crossmatch 03/15/21 03/15/21 03/15/21 10:00 21:50 23:39 WBC RBC Hgb Hct MCH RDW Plt Count Lymph % (Auto) [place] # (Auto) Eos # (Auto) Seg Neutrophils % Eosinophils % (Manual) Basophils % (Manual) Seg Neutrophils # Seg Neutrophils # Man Lymphocytes # (Manual) Eosinophils # (Manual) Basophils # (Manual) Percent Retic PT INR Fibrinogen D-Dimer ABG pH 7.098 L POC ABG pCO2 72.7 H POC ABG pO2 ABG pO2 162.5 H ABG HCO3 ABG O2 Saturation ABG Base Excess ABG Hemoglobin 10.1 L ABG Oxyhemoglobin ABG Sodium ABG Potassium 5.7 H ABG Chloride ABG Glucose Oxyhemoglobin Carboxyhemoglobin 0.4 L Sodium Potassium Chloride Carbon Dioxide BUN Creatinine Glucose POC Glucose 156 H Hemoglobin A1c Calcium Phosphorus Magnesium AST ALT Alkaline Phosphatase Lactate Dehydrogenase C-Reactive Protein Total Protein Albumin Triglycerides Arterial Blood Glucose Arterial Blood Ionized Calcium Urine Creatinine Random Vancomycin Coronavirus (PCR) Crossmatch 03/16/21 03/16/21 03/16/21 05:00 05:30 05:30 WBC 16.7 H RBC 3.59 L Hgb 9.6 L Hct 30.1 L MCH 27 L RDW 17.5 H Plt Count Lymph % (Auto) [place] # (Auto) Eos # (Auto) Seg Neutrophils % Eosinophils % (Manual) Basophils % (Manual) Seg Neutrophils # Seg Neutrophils # Man Lymphocytes # (Manual) Eosinophils # (Manual) Basophils # (Manual) Percent Retic PT INR Fibrinogen D-Dimer ABG pH POC ABG pCO2 POC ABG pO2 ABG pO2 ABG HCO3 ABG O2 Saturation ABG Base Excess ABG Hemoglobin ABG Oxyhemoglobin ABG Sodium ABG Potassium ABG Chloride ABG Glucose Oxyhemoglobin Carboxyhemoglobin Sodium Potassium Chloride Carbon Dioxide BUN 46 H Creatinine 6.2 H Glucose 131 H POC Glucose Hemoglobin A1c Calcium Phosphorus 6.00 H D Magnesium AST ALT Alkaline Phosphatase Lactate Dehydrogenase 318 H C-Reactive Protein 18.60 H Total Protein Albumin 3.0 L Triglycerides Arterial Blood Glucose Arterial Blood Ionized Calcium Urine Creatinine Random Vancomycin Coronavirus (PCR) Crossmatch 03/16/21 03/16/21 03/16/21 05:51 06:37 08:58 WBC RBC Hgb Hct MCH RDW Plt Count Lymph % (Auto) [place] # (Auto) Eos # (Auto) Seg Neutrophils % Eosinophils % (Manual) Basophils % (Manual) Seg Neutrophils # Seg Neutrophils # Man Lymphocytes # (Manual) Eosinophils # (Manual) Basophils # (Manual) Percent Retic PT INR Fibrinogen D-Dimer 3041.12 H ABG pH POC ABG pCO2 POC ABG pO2 ABG pO2 141.5 H ABG HCO3 ABG O2 Saturation ABG Base Excess ABG Hemoglobin 9.7 L ABG Oxyhemoglobin ABG Sodium ABG Potassium ABG Chloride ABG Glucose Oxyhemoglobin Carboxyhemoglobin Sodium Potassium Chloride Carbon Dioxide BUN Creatinine Glucose POC Glucose 126 H Hemoglobin A1c Calcium Phosphorus Magnesium AST ALT Alkaline Phosphatase Lactate Dehydrogenase C-Reactive Protein Total Protein Albumin Triglycerides Arterial Blood Glucose Arterial Blood Ionized Calcium Urine Creatinine Random Vancomycin Coronavirus (PCR) Crossmatch 03/16/21 03/16/21 03/16/21 12:11 16:51 21:00 WBC RBC Hgb Hct MCH RDW Plt Count Lymph % (Auto) [place] # (Auto) Eos # (Auto) Seg Neutrophils % Eosinophils % (Manual) Basophils % (Manual) Seg Neutrophils # Seg Neutrophils # Man Lymphocytes # (Manual) Eosinophils # (Manual) Basophils # (Manual) Percent Retic PT INR Fibrinogen D-Dimer ABG pH 7.239 L POC ABG pCO2 61.5 H POC ABG pO2 80.8 L ABG pO2 ABG HCO3 ABG O2 Saturation ABG Base Excess ABG Hemoglobin 11.4 L ABG Oxyhemoglobin 93.5 L ABG Sodium ABG Potassium 5.4 H ABG Chloride ABG Glucose 137 H Oxyhemoglobin Carboxyhemoglobin 0.2 L Sodium Potassium Chloride Carbon Dioxide BUN Creatinine Glucose POC Glucose 156 H 133 H Hemoglobin A1c Calcium Phosphorus Magnesium AST ALT Alkaline Phosphatase Lactate Dehydrogenase C-Reactive Protein Total Protein Albumin Triglycerides Arterial Blood Glucose 137 H Arterial Blood Ionized Calcium Urine Creatinine Random Vancomycin Coronavirus (PCR) Crossmatch 03/16/21 03/17/21 03/17/21 23:42 05:23 05:23 WBC 18.4 H RBC Hgb Hct MCH 27 L RDW 17.4 H Plt Count Lymph % (Auto) [place] # (Auto) Eos # (Auto) Seg Neutrophils % Eosinophils % (Manual) Basophils % (Manual) Seg Neutrophils # Seg Neutrophils # Man Lymphocytes # (Manual) Eosinophils # (Manual) Basophils # (Manual) Percent Retic PT INR Fibrinogen D-Dimer ABG pH POC ABG pCO2 POC ABG pO2 ABG pO2 ABG HCO3 ABG O2 Saturation ABG Base Excess ABG Hemoglobin ABG Oxyhemoglobin ABG Sodium ABG Potassium ABG Chloride ABG Glucose Oxyhemoglobin Carboxyhemoglobin Sodium Potassium 5.2 H Chloride Carbon Dioxide 21 L BUN 79 H Creatinine 8.6 H Glucose 124 H POC Glucose 133 H Hemoglobin A1c Calcium Phosphorus Magnesium AST ALT Alkaline Phosphatase Lactate Dehydrogenase C-Reactive Protein Total Protein Albumin 3.2 L Triglycerides 285 H Arterial Blood Glucose Arterial Blood Ionized Calcium Urine Creatinine Random Vancomycin Coronavirus (PCR) Crossmatch 03/17/21 03/17/21 03/17/21 05:23 10:48 12:20 WBC RBC Hgb Hct MCH RDW Plt Count Lymph % (Auto) [place] # (Auto) Eos # (Auto) Seg Neutrophils % Eosinophils % (Manual) Basophils % (Manual) Seg Neutrophils # Seg Neutrophils # Man Lymphocytes # (Manual) Eosinophils # (Manual) Basophils # (Manual) Percent Retic PT INR Fibrinogen D-Dimer ABG pH 7.294 L POC ABG pCO2 POC ABG pO2 ABG pO2 90.3 H ABG HCO3 ABG O2 Saturation ABG Base Excess ABG Hemoglobin 9.9 L ABG Oxyhemoglobin ABG Sodium ABG Potassium ABG Chloride ABG Glucose Oxyhemoglobin Carboxyhemoglobin Sodium Potassium 5.2 H Chloride Carbon Dioxide 21 L BUN 79 H Creatinine 8.4 H Glucose 125 H POC Glucose 171 H Hemoglobin A1c Calcium Phosphorus 9.90 H D Magnesium 2.40 H AST ALT Alkaline Phosphatase Lactate Dehydrogenase C-Reactive Protein Total Protein Albumin Triglycerides Arterial Blood Glucose Arterial Blood Ionized Calcium Urine Creatinine Random Vancomycin Coronavirus (PCR) Crossmatch 03/17/21 03/17/21 03/18/21 17:24 21:00 04:30 WBC RBC Hgb Hct MCH RDW Plt Count Lymph % (Auto) [place] # (Auto) Eos # (Auto) Seg Neutrophils % Eosinophils % (Manual) Basophils % (Manual) Seg Neutrophils # Seg Neutrophils # Man Lymphocytes # (Manual) Eosinophils # (Manual) Basophils # (Manual) Percent Retic PT INR Fibrinogen D-Dimer 9953.09 H ABG pH 7.310 L POC ABG pCO2 54.5 H POC ABG pO2 62.3 L ABG pO2 ABG HCO3 ABG O2 Saturation ABG Base Excess ABG Hemoglobin 10.2 L ABG Oxyhemoglobin 88.6 L ABG Sodium ABG Potassium 4.7 H ABG Chloride ABG Glucose 99 H Oxyhemoglobin Carboxyhemoglobin 0.3 L Sodium Potassium Chloride Carbon Dioxide BUN Creatinine Glucose POC Glucose 121 H Hemoglobin A1c Calcium Phosphorus Magnesium AST ALT Alkaline Phosphatase Lactate Dehydrogenase C-Reactive Protein Total Protein Albumin Triglycerides Arterial Blood Glucose 99 H Arterial Blood Ionized Calcium 4.3 L Urine Creatinine Random Vancomycin Coronavirus (PCR) Crossmatch 03/18/21 03/18/21 03/18/21 04:30 04:30 11:34 WBC 12.8 H RBC 3.49 L Hgb 9.4 L Hct 29.3 L MCH 27 L RDW 17.4 H Plt Count Lymph % (Auto) [place] # (Auto) Eos # (Auto) Seg Neutrophils % Eosinophils % (Manual) Basophils % (Manual) Seg Neutrophils # Seg Neutrophils # Man Lymphocytes # (Manual) Eosinophils # (Manual) Basophils # (Manual) Percent Retic PT INR Fibrinogen D-Dimer ABG pH POC ABG pCO2 POC ABG pO2 ABG pO2 ABG HCO3 ABG O2 Saturation ABG Base Excess ABG Hemoglobin ABG Oxyhemoglobin ABG Sodium ABG Potassium ABG Chloride ABG Glucose Oxyhemoglobin Carboxyhemoglobin Sodium Potassium Chloride Carbon Dioxide BUN 69 H Creatinine 7.3 H Glucose POC Glucose 114 H Hemoglobin A1c Calcium 8.2 L Phosphorus 7.60 H D Magnesium AST ALT Alkaline Phosphatase Lactate Dehydrogenase 477 H C-Reactive Protein 6.90 H Total Protein Albumin Triglycerides Arterial Blood Glucose Arterial Blood Ionized Calcium Urine Creatinine Random Vancomycin Coronavirus (PCR) Crossmatch 03/18/21 03/19/21 03/19/21 21:44 04:13 04:13 WBC 13.7 H RBC 3.32 L Hgb 9.0 L Hct 28.1 L MCH 27 L RDW 16.9 H Plt Count Lymph % (Auto) [place] # (Auto) Eos # (Auto) Seg Neutrophils % Eosinophils % (Manual) Basophils % (Manual) Seg Neutrophils # Seg Neutrophils # Man Lymphocytes # (Manual) Eosinophils # (Manual) Basophils # (Manual) Percent Retic PT INR Fibrinogen D-Dimer ABG pH 7.290 L POC ABG pCO2 POC ABG pO2 ABG pO2 119.7 H ABG HCO3 28.0 H ABG O2 Saturation ABG Base Excess ABG Hemoglobin 9.6 L ABG Oxyhemoglobin ABG Sodium ABG Potassium ABG Chloride ABG Glucose Oxyhemoglobin Carboxyhemoglobin Sodium Potassium Chloride Carbon Dioxide BUN Creatinine Glucose POC Glucose Hemoglobin A1c Calcium Phosphorus Magnesium AST ALT Alkaline Phosphatase Lactate Dehydrogenase C-Reactive Protein Total Protein Albumin Triglycerides Arterial Blood Glucose Arterial Blood Ionized Calcium Urine Creatinine Random Vancomycin 43.5 H Coronavirus (PCR) Crossmatch 03/19/21 03/19/21 03/19/21 04:13 05:59 11:40 WBC RBC Hgb Hct MCH RDW Plt Count Lymph % (Auto) [place] # (Auto) Eos # (Auto) Seg Neutrophils % Eosinophils % (Manual) Basophils % (Manual) Seg Neutrophils # Seg Neutrophils # Man Lymphocytes # (Manual) Eosinophils # (Manual) Basophils # (Manual) Percent Retic PT INR Fibrinogen D-Dimer ABG pH POC ABG pCO2 POC ABG pO2 ABG pO2 ABG HCO3 ABG O2 Saturation ABG Base Excess ABG Hemoglobin ABG Oxyhemoglobin ABG Sodium ABG Potassium ABG Chloride ABG Glucose Oxyhemoglobin Carboxyhemoglobin Sodium Potassium Chloride Carbon Dioxide BUN 55 H Creatinine 7.0 H Glucose POC Glucose 116 H 145 H Hemoglobin A1c Calcium 8.1 L Phosphorus 7.90 H Magnesium AST ALT Alkaline Phosphatase Lactate Dehydrogenase C-Reactive Protein Total Protein Albumin Triglycerides Arterial Blood Glucose Arterial Blood Ionized Calcium Urine Creatinine Random Vancomycin Coronavirus (PCR) Crossmatch 03/19/21 03/19/21 03/20/21 17:01 23:41 04:00 WBC 15.6 H RBC 3.55 L Hgb 9.6 L Hct MCH 27 L RDW 16.8 H Plt Count 139 L Lymph % (Auto) [place] # (Auto) Eos # (Auto) Seg Neutrophils % Eosinophils % (Manual) Basophils % (Manual) Seg Neutrophils # Seg Neutrophils # Man Lymphocytes # (Manual) Eosinophils # (Manual) Basophils # (Manual) Percent Retic PT INR Fibrinogen D-Dimer ABG pH POC ABG pCO2 POC ABG pO2 ABG pO2 ABG HCO3 ABG O2 Saturation ABG Base Excess ABG Hemoglobin ABG Oxyhemoglobin ABG Sodium ABG Potassium ABG Chloride ABG Glucose Oxyhemoglobin Carboxyhemoglobin Sodium Potassium Chloride Carbon Dioxide BUN Creatinine Glucose POC Glucose 111 H 118 H Hemoglobin A1c Calcium Phosphorus Magnesium AST ALT Alkaline Phosphatase Lactate Dehydrogenase C-Reactive Protein Total Protein Albumin Triglycerides Arterial Blood Glucose Arterial Blood Ionized Calcium Urine Creatinine Random Vancomycin Coronavirus (PCR) Crossmatch 03/20/21 03/20/21 03/20/21 04:00 04:00 04:37 WBC RBC Hgb Hct MCH RDW Plt Count Lymph % (Auto) [place] # (Auto) Eos # (Auto) Seg Neutrophils % Eosinophils % (Manual) Basophils % (Manual) Seg Neutrophils # Seg Neutrophils # Man Lymphocytes # (Manual) Eosinophils # (Manual) Basophils # (Manual) Percent Retic PT INR Fibrinogen D-Dimer > 30198 H ABG pH 7.306 L POC ABG pCO2 POC ABG pO2 ABG pO2 ABG HCO3 27.9 H ABG O2 Saturation ABG Base Excess ABG Hemoglobin 5.2 L ABG Oxyhemoglobin ABG Sodium ABG Potassium ABG Chloride ABG Glucose Oxyhemoglobin Carboxyhemoglobin Sodium Potassium 5.2 H Chloride 97.6 L Carbon Dioxide BUN 52 H Creatinine 6.2 H Glucose 104 H POC Glucose Hemoglobin A1c Calcium Phosphorus 8.60 H Magnesium AST ALT Alkaline Phosphatase Lactate Dehydrogenase C-Reactive Protein 6.90 H Total Protein Albumin Triglycerides Arterial Blood Glucose Arterial Blood Ionized Calcium Urine Creatinine Random Vancomycin Coronavirus (PCR) Crossmatch 03/20/21 03/20/21 03/20/21 13:50 17:46 17:56 WBC RBC Hgb Hct MCH RDW Plt Count Lymph % (Auto) [place] # (Auto) Eos # (Auto) Seg Neutrophils % Eosinophils % (Manual) Basophils % (Manual) Seg Neutrophils # Seg Neutrophils # Man Lymphocytes # (Manual) Eosinophils # (Manual) Basophils # (Manual) Percent Retic PT INR Fibrinogen D-Dimer ABG pH POC ABG pCO2 POC ABG pO2 ABG pO2 ABG HCO3 ABG O2 Saturation ABG Base Excess ABG Hemoglobin ABG Oxyhemoglobin ABG Sodium ABG Potassium ABG Chloride ABG Glucose Oxyhemoglobin Carboxyhemoglobin Sodium Potassium Chloride Carbon Dioxide BUN 63 H 43 H Creatinine Glucose POC Glucose 145 H Hemoglobin A1c Calcium Phosphorus Magnesium AST ALT Alkaline Phosphatase Lactate Dehydrogenase C-Reactive Protein Total Protein Albumin Triglycerides Arterial Blood Glucose Arterial Blood Ionized Calcium Urine Creatinine Random Vancomycin Coronavirus (PCR) Crossmatch 03/20/21 03/21/21 03/21/21 23:18 06:58 06:58 WBC 14.4 H RBC 3.41 L Hgb 9.5 L Hct 28.6 L MCH RDW 17.4 H Plt Count 107 L Lymph % (Auto) [place] # (Auto) Eos # (Auto) Seg Neutrophils % Eosinophils % (Manual) Basophils % (Manual) Seg Neutrophils # Seg Neutrophils # Man Lymphocytes # (Manual) Eosinophils # (Manual) Basophils # (Manual) Percent Retic PT INR Fibrinogen D-Dimer ABG pH POC ABG pCO2 POC ABG pO2 ABG pO2 ABG HCO3 ABG O2 Saturation ABG Base Excess ABG Hemoglobin ABG Oxyhemoglobin ABG Sodium ABG Potassium ABG Chloride ABG Glucose Oxyhemoglobin Carboxyhemoglobin Sodium Potassium Chloride Carbon Dioxide BUN 60 H Creatinine 7.7 H Glucose POC Glucose 106 H Hemoglobin A1c Calcium Phosphorus Magnesium AST ALT Alkaline Phosphatase Lactate Dehydrogenase C-Reactive Protein Total Protein Albumin Triglycerides Arterial Blood Glucose Arterial Blood Ionized Calcium Urine Creatinine Random Vancomycin Coronavirus (PCR) Crossmatch 03/21/21 03/21/21 03/21/21 11:11 18:04 Unknown WBC RBC Hgb Hct MCH RDW Plt Count Lymph % (Auto) [place] # (Auto) Eos # (Auto) Seg Neutrophils % Eosinophils % (Manual) Basophils % (Manual) Seg Neutrophils # Seg Neutrophils # Man Lymphocytes # (Manual) Eosinophils # (Manual) Basophils # (Manual) Percent Retic PT INR Fibrinogen D-Dimer ABG pH 7.270 L POC ABG pCO2 58.7 H POC ABG pO2 76.9 L ABG pO2 ABG HCO3 ABG O2 Saturation ABG Base Excess ABG Hemoglobin 9.9 L ABG Oxyhemoglobin 92.4 L ABG Sodium 135.8 L ABG Potassium 4.6 H ABG Chloride ABG Glucose Oxyhemoglobin Carboxyhemoglobin 0.1 L Sodium Potassium Chloride Carbon Dioxide BUN Creatinine Glucose POC Glucose 109 H 141 H Hemoglobin A1c Calcium Phosphorus Magnesium AST ALT Alkaline Phosphatase Lactate Dehydrogenase C-Reactive Protein Total Protein Albumin Triglycerides Arterial Blood Glucose Arterial Blood Ionized Calcium 4.5 L Urine Creatinine Random Vancomycin Coronavirus (PCR) Crossmatch 03/22/21 03/22/21 03/22/21 03:09 07:10 10:00 WBC RBC Hgb Hct MCH RDW Plt Count Lymph % (Auto) [place] # (Auto) Eos # (Auto) Seg Neutrophils % Eosinophils % (Manual) Basophils % (Manual) Seg Neutrophils # Seg Neutrophils # Man Lymphocytes # (Manual) Eosinophils # (Manual) Basophils # (Manual) Percent Retic PT INR Fibrinogen D-Dimer ABG pH 7.206 L 7.245 L POC ABG pCO2 55.6 H POC ABG pO2 ABG pO2 90.6 H ABG HCO3 ABG O2 Saturation ABG Base Excess -4.4 L ABG Hemoglobin 9.0 L 8.4 L ABG Oxyhemoglobin ABG Sodium 123.4 L ABG Potassium 5.6 H ABG Chloride ABG Glucose 106 H Oxyhemoglobin 94.5 L Carboxyhemoglobin 0.1 L Sodium Potassium 5.4 H Chloride 96.8 L Carbon Dioxide BUN 89 H Creatinine 8.7 H Glucose 131 H POC Glucose Hemoglobin A1c Calcium Phosphorus Magnesium AST ALT Alkaline Phosphatase Lactate Dehydrogenase C-Reactive Protein 9.40 H Total Protein Albumin Triglycerides Arterial Blood Glucose 106 H Arterial Blood Ionized Calcium Urine Creatinine Random Vancomycin Coronavirus (PCR) Crossmatch 03/22/21 03/22/21 03/22/21 10:00 12:37 13:19 WBC RBC 3.05 L Hgb 8.4 L Hct 25.5 L MCH RDW 17.5 H Plt Count 108 L Lymph % (Auto) [place] # (Auto) Eos # (Auto) Seg Neutrophils % Eosinophils % (Manual) Basophils % (Manual) Seg Neutrophils # Seg Neutrophils # Man Lymphocytes # (Manual) Eosinophils # (Manual) Basophils # (Manual) Percent Retic PT INR Fibrinogen D-Dimer ABG pH POC ABG pCO2 POC ABG pO2 ABG pO2 ABG HCO3 ABG O2 Saturation ABG Base Excess ABG Hemoglobin ABG Oxyhemoglobin ABG Sodium ABG Potassium ABG Chloride ABG Glucose Oxyhemoglobin Carboxyhemoglobin Sodium Potassium Chloride Carbon Dioxide BUN Creatinine 8.7 H Glucose POC Glucose 140 H Hemoglobin A1c Calcium Phosphorus Magnesium AST ALT Alkaline Phosphatase Lactate Dehydrogenase C-Reactive Protein Total Protein Albumin Triglycerides Arterial Blood Glucose Arterial Blood Ionized Calcium Urine Creatinine Random Vancomycin Coronavirus (PCR) Crossmatch 03/22/21 03/22/21 03/22/21 13:40 17:14 18:21 WBC RBC Hgb Hct MCH RDW Plt Count Lymph % (Auto) [place] # (Auto) Eos # (Auto) Seg Neutrophils % Eosinophils % (Manual) Basophils % (Manual) Seg Neutrophils # Seg Neutrophils # Man Lymphocytes # (Manual) Eosinophils # (Manual) Basophils # (Manual) Percent Retic PT 15.8 H INR 1.14 H Fibrinogen D-Dimer > 21587 H ABG pH POC ABG pCO2 POC ABG pO2 ABG pO2 ABG HCO3 ABG O2 Saturation ABG Base Excess ABG Hemoglobin ABG Oxyhemoglobin ABG Sodium ABG Potassium ABG Chloride ABG Glucose Oxyhemoglobin Carboxyhemoglobin Sodium Potassium Chloride Carbon Dioxide BUN Creatinine Glucose POC Glucose 117 H 112 H Hemoglobin A1c Calcium Phosphorus Magnesium AST ALT Alkaline Phosphatase Lactate Dehydrogenase C-Reactive Protein Total Protein Albumin Triglycerides Arterial Blood Glucose Arterial Blood Ionized Calcium Urine Creatinine Random Vancomycin Coronavirus (PCR) Crossmatch 03/22/21 03/22/21 03/23/21 21:25 22:57 04:30 WBC RBC Hgb Hct MCH RDW Plt Count Lymph % (Auto) [place] # (Auto) Eos # (Auto) Seg Neutrophils % Eosinophils % (Manual) Basophils % (Manual) Seg Neutrophils # Seg Neutrophils # Man Lymphocytes # (Manual) Eosinophils # (Manual) Basophils # (Manual) Percent Retic PT INR Fibrinogen D-Dimer ABG pH 7.188 L* POC ABG pCO2 POC ABG pO2 ABG pO2 97.9 H ABG HCO3 ABG O2 Saturation ABG Base Excess -3.7 L ABG Hemoglobin 9.2 L ABG Oxyhemoglobin ABG Sodium ABG Potassium ABG Chloride ABG Glucose Oxyhemoglobin 94.4 L Carboxyhemoglobin Sodium Potassium Chloride Carbon Dioxide BUN Creatinine Glucose POC Glucose 106 H Hemoglobin A1c Calcium Phosphorus Magnesium AST ALT Alkaline Phosphatase Lactate Dehydrogenase C-Reactive Protein Total Protein Albumin Triglycerides 381 H Arterial Blood Glucose Arterial Blood Ionized Calcium Urine Creatinine Random Vancomycin Coronavirus (PCR) Crossmatch 03/23/21 03/23/21 03/23/21 04:30 04:30 05:37 WBC 20.1 H RBC 3.17 L Hgb 8.6 L Hct 27.2 L MCH 27 L RDW 17.4 H Plt Count 118 L Lymph % (Auto) [place] # (Auto) Eos # (Auto) Seg Neutrophils % Eosinophils % (Manual) Basophils % (Manual) Seg Neutrophils # Seg Neutrophils # Man Lymphocytes # (Manual) Eosinophils # (Manual) Basophils # (Manual) Percent Retic PT INR Fibrinogen D-Dimer ABG pH POC ABG pCO2 POC ABG pO2 ABG pO2 ABG HCO3 ABG O2 Saturation ABG Base Excess ABG Hemoglobin ABG Oxyhemoglobin ABG Sodium ABG Potassium ABG Chloride ABG Glucose Oxyhemoglobin Carboxyhemoglobin Sodium Potassium 5.2 H Chloride 97.1 L Carbon Dioxide 21 L BUN 82 H Creatinine 9.1 H Glucose 109 H POC Glucose 130 H Hemoglobin A1c Calcium Phosphorus 10.80 H Magnesium 3.50 H AST ALT Alkaline Phosphatase Lactate Dehydrogenase C-Reactive Protein Total Protein Albumin Triglycerides Arterial Blood Glucose Arterial Blood Ionized Calcium Urine Creatinine Random Vancomycin Coronavirus (PCR) Crossmatch 03/23/21 03/23/21 03/23/21 08:44 11:30 16:09 WBC RBC Hgb Hct MCH RDW Plt Count Lymph % (Auto) [place] # (Auto) Eos # (Auto) Seg Neutrophils % Eosinophils % (Manual) Basophils % (Manual) Seg Neutrophils # Seg Neutrophils # Man Lymphocytes # (Manual) Eosinophils # (Manual) Basophils # (Manual) Percent Retic PT INR Fibrinogen D-Dimer ABG pH 7.190 L POC ABG pCO2 57.9 H POC ABG pO2 79.2 L ABG pO2 ABG HCO3 ABG O2 Saturation ABG Base Excess ABG Hemoglobin 11.8 L ABG Oxyhemoglobin 92.3 L ABG Sodium 131.0 L ABG Potassium 5.0 H ABG Chloride ABG Glucose 122 H Oxyhemoglobin Carboxyhemoglobin 0.4 L Sodium Potassium Chloride Carbon Dioxide BUN Creatinine Glucose POC Glucose 129 H 148 H Hemoglobin A1c Calcium Phosphorus Magnesium AST ALT Alkaline Phosphatase Lactate Dehydrogenase C-Reactive Protein Total Protein Albumin Triglycerides Arterial Blood Glucose 122 H Arterial Blood Ionized Calcium 4.4 L Urine Creatinine Random Vancomycin Coronavirus (PCR) Crossmatch 03/23/21 03/24/21 03/24/21 21:00 03:35 04:00 WBC 17.8 H RBC 2.96 L Hgb 8.1 L Hct 25.0 L MCH 27 L RDW 17.7 H Plt Count 124 L Lymph % (Auto) [place] # (Auto) Eos # (Auto) Seg Neutrophils % Eosinophils % (Manual) Basophils % (Manual) Seg Neutrophils # Seg Neutrophils # Man Lymphocytes # (Manual) Eosinophils # (Manual) Basophils # (Manual) Percent Retic PT INR Fibrinogen D-Dimer ABG pH 7.223 L POC ABG pCO2 50.3 H POC ABG pO2 114.4 H ABG pO2 ABG HCO3 ABG O2 Saturation ABG Base Excess ABG Hemoglobin 8.8 L ABG Oxyhemoglobin ABG Sodium 130.4 L ABG Potassium 5.1 H ABG Chloride ABG Glucose 126 H Oxyhemoglobin Carboxyhemoglobin 0.2 L Sodium Potassium Chloride Carbon Dioxide BUN Creatinine Glucose POC Glucose 148 H Hemoglobin A1c Calcium Phosphorus Magnesium AST ALT Alkaline Phosphatase Lactate Dehydrogenase C-Reactive Protein Total Protein Albumin Triglycerides Arterial Blood Glucose 126 H Arterial Blood Ionized Calcium 4.4 L Urine Creatinine Random Vancomycin Coronavirus (PCR) Crossmatch 03/24/21 03/24/21 03/24/21 04:00 06:49 12:29 WBC RBC Hgb Hct MCH RDW Plt Count Lymph % (Auto) [place] # (Auto) Eos # (Auto) Seg Neutrophils % Eosinophils % (Manual) Basophils % (Manual) Seg Neutrophils # Seg Neutrophils # Man Lymphocytes # (Manual) Eosinophils # (Manual) Basophils # (Manual) Percent Retic PT INR Fibrinogen D-Dimer ABG pH POC ABG pCO2 POC ABG pO2 ABG pO2 ABG HCO3 ABG O2 Saturation ABG Base Excess ABG Hemoglobin ABG Oxyhemoglobin ABG Sodium ABG Potassium ABG Chloride ABG Glucose Oxyhemoglobin Carboxyhemoglobin Sodium Potassium Chloride 95.6 L Carbon Dioxide 20 L BUN 108 H Creatinine 10.8 H Glucose 155 H POC Glucose 136 H 142 H Hemoglobin A1c Calcium Phosphorus Magnesium AST ALT Alkaline Phosphatase Lactate Dehydrogenase C-Reactive Protein Total Protein Albumin Triglycerides Arterial Blood Glucose Arterial Blood Ionized Calcium Urine Creatinine Random Vancomycin Coronavirus (PCR) Crossmatch 03/24/21 03/25/21 03/25/21 21:35 00:15 05:51 WBC RBC Hgb Hct MCH RDW Plt Count Lymph % (Auto) [place] # (Auto) Eos # (Auto) Seg Neutrophils % Eosinophils % (Manual) Basophils % (Manual) Seg Neutrophils # Seg Neutrophils # Man Lymphocytes # (Manual) Eosinophils # (Manual) Basophils # (Manual) Percent Retic PT INR Fibrinogen D-Dimer ABG pH 7.241 L POC ABG pCO2 POC ABG pO2 ABG pO2 72.4 L ABG HCO3 ABG O2 Saturation 90.3 L ABG Base Excess ABG Hemoglobin 7.9 L ABG Oxyhemoglobin ABG Sodium ABG Potassium ABG Chloride ABG Glucose Oxyhemoglobin 88.4 L Carboxyhemoglobin Sodium Potassium Chloride Carbon Dioxide BUN Creatinine Glucose POC Glucose 110 H 121 H Hemoglobin A1c Calcium Phosphorus Magnesium AST ALT Alkaline Phosphatase Lactate Dehydrogenase C-Reactive Protein Total Protein Albumin Triglycerides Arterial Blood Glucose Arterial Blood Ionized Calcium Urine Creatinine Random Vancomycin Coronavirus (PCR) Crossmatch 03/25/21 03/25/21 03/25/21 05:54 05:54 12:21 WBC 12.4 H RBC 2.52 L Hgb 6.9 L Hct 21.1 L MCH RDW 17.4 H Plt Count 102 L Lymph % (Auto) [place] # (Auto) Eos # (Auto) Seg Neutrophils % Eosinophils % (Manual) Basophils % (Manual) Seg Neutrophils # Seg Neutrophils # Man Lymphocytes # (Manual) Eosinophils # (Manual) Basophils # (Manual) Percent Retic PT INR Fibrinogen D-Dimer ABG pH POC ABG pCO2 POC ABG pO2 ABG pO2 ABG HCO3 ABG O2 Saturation ABG Base Excess ABG Hemoglobin ABG Oxyhemoglobin ABG Sodium ABG Potassium ABG Chloride ABG Glucose Oxyhemoglobin Carboxyhemoglobin Sodium Potassium Chloride 96.7 L Carbon Dioxide BUN 81 H Creatinine 8.1 H Glucose 116 H POC Glucose 138 H Hemoglobin A1c Calcium 8.2 L Phosphorus Magnesium AST ALT Alkaline Phosphatase Lactate Dehydrogenase C-Reactive Protein Total Protein Albumin Triglycerides Arterial Blood Glucose Arterial Blood Ionized Calcium Urine Creatinine Random Vancomycin Coronavirus (PCR) Crossmatch 03/25/21 03/25/21 03/25/21 13:45 17:32 21:30 WBC RBC Hgb Hct MCH RDW Plt Count Lymph % (Auto) [place] # (Auto) Eos # (Auto) Seg Neutrophils % Eosinophils % (Manual) Basophils % (Manual) Seg Neutrophils # Seg Neutrophils # Man Lymphocytes # (Manual) Eosinophils # (Manual) Basophils # (Manual) Percent Retic PT INR Fibrinogen D-Dimer ABG pH POC ABG pCO2 POC ABG pO2 ABG pO2 70.2 L ABG HCO3 ABG O2 Saturation ABG Base Excess ABG Hemoglobin 6.8 L ABG Oxyhemoglobin ABG Sodium ABG Potassium ABG Chloride ABG Glucose Oxyhemoglobin 94.5 L Carboxyhemoglobin Sodium Potassium Chloride Carbon Dioxide BUN Creatinine Glucose POC Glucose 110 H Hemoglobin A1c Calcium Phosphorus Magnesium AST ALT Alkaline Phosphatase Lactate Dehydrogenase C-Reactive Protein Total Protein Albumin Triglycerides Arterial Blood Glucose Arterial Blood Ionized Calcium Urine Creatinine Random Vancomycin Coronavirus (PCR) Crossmatch See Detail 03/25/21 03/25/21 03/26/21 23:29 Unknown 05:15 WBC 12.4 H 14.0 H RBC 2.49 L 2.83 L Hgb 6.8 L 7.6 L Hct 20.9 L 23.6 L MCH 27 L 27 L RDW 18.0 H 17.1 H Plt Count 107 L 116 L Lymph % (Auto) [place] # (Auto) Eos # (Auto) Seg Neutrophils % Eosinophils % (Manual) Basophils % (Manual) Seg Neutrophils # Seg Neutrophils # Man Lymphocytes # (Manual) Eosinophils # (Manual) Basophils # (Manual) Percent Retic PT INR Fibrinogen D-Dimer ABG pH POC ABG pCO2 POC ABG pO2 ABG pO2 ABG HCO3 ABG O2 Saturation ABG Base Excess ABG Hemoglobin ABG Oxyhemoglobin ABG Sodium ABG Potassium ABG Chloride ABG Glucose Oxyhemoglobin Carboxyhemoglobin Sodium Potassium Chloride Carbon Dioxide BUN Creatinine Glucose POC Glucose 113 H Hemoglobin A1c Calcium Phosphorus Magnesium AST ALT Alkaline Phosphatase Lactate Dehydrogenase C-Reactive Protein Total Protein Albumin Triglycerides Arterial Blood Glucose Arterial Blood Ionized Calcium Urine Creatinine Random Vancomycin Coronavirus (PCR) Crossmatch 03/26/21 03/26/21 03/26/21 05:15 05:35 09:50 WBC RBC Hgb Hct MCH RDW Plt Count Lymph % (Auto) [place] # (Auto) Eos # (Auto) Seg Neutrophils % Eosinophils % (Manual) Basophils % (Manual) Seg Neutrophils # Seg Neutrophils # Man Lymphocytes # (Manual) Eosinophils # (Manual) Basophils # (Manual) Percent Retic PT INR Fibrinogen D-Dimer ABG pH POC ABG pCO2 POC ABG pO2 ABG pO2 79.9 L ABG HCO3 ABG O2 Saturation ABG Base Excess ABG Hemoglobin 7.1 L ABG Oxyhemoglobin ABG Sodium ABG Potassium ABG Chloride ABG Glucose Oxyhemoglobin 94.9 L Carboxyhemoglobin Sodium Potassium 3.4 L Chloride Carbon Dioxide BUN 70 H Creatinine 7.3 H Glucose 142 H POC Glucose 130 H Hemoglobin A1c Calcium 8.2 L Phosphorus Magnesium AST ALT Alkaline Phosphatase Lactate Dehydrogenase C-Reactive Protein Total Protein Albumin Triglycerides 254 H Arterial Blood Glucose Arterial Blood Ionized Calcium Urine Creatinine Random Vancomycin Coronavirus (PCR) Crossmatch 03/26/21 03/26/21 03/26/21 11:45 16:36 23:33 WBC RBC Hgb Hct MCH RDW Plt Count Lymph % (Auto) [place] # (Auto) Eos # (Auto) Seg Neutrophils % Eosinophils % (Manual) Basophils % (Manual) Seg Neutrophils # Seg Neutrophils # Man Lymphocytes # (Manual) Eosinophils # (Manual) Basophils # (Manual) Percent Retic PT INR Fibrinogen D-Dimer ABG pH POC ABG pCO2 POC ABG pO2 ABG pO2 ABG HCO3 ABG O2 Saturation ABG Base Excess ABG Hemoglobin ABG Oxyhemoglobin ABG Sodium ABG Potassium ABG Chloride ABG Glucose Oxyhemoglobin Carboxyhemoglobin Sodium Potassium Chloride Carbon Dioxide BUN Creatinine Glucose POC Glucose 123 H 121 H 120 H Hemoglobin A1c Calcium Phosphorus Magnesium AST ALT Alkaline Phosphatase Lactate Dehydrogenase C-Reactive Protein Total Protein Albumin Triglycerides Arterial Blood Glucose Arterial Blood Ionized Calcium Urine Creatinine Random Vancomycin Coronavirus (PCR) Crossmatch 03/27/21 03/27/21 03/27/21 03:20 04:14 08:20 WBC 13.2 H RBC 2.82 L Hgb 7.9 L Hct 23.5 L MCH RDW 17.3 H Plt Count 125 L Lymph % (Auto) [place] # (Auto) Eos # (Auto) Seg Neutrophils % Eosinophils % (Manual) Basophils % (Manual) Seg Neutrophils # Seg Neutrophils # Man Lymphocytes # (Manual) Eosinophils # (Manual) Basophils # (Manual) Percent Retic PT INR Fibrinogen D-Dimer ABG pH POC ABG pCO2 50.0 H POC ABG pO2 58.3 L ABG pO2 ABG HCO3 ABG O2 Saturation ABG Base Excess ABG Hemoglobin 11.3 L ABG Oxyhemoglobin 88.5 L ABG Sodium ABG Potassium ABG Chloride ABG Glucose 132 H Oxyhemoglobin Carboxyhemoglobin 0.2 L Sodium Potassium Chloride Carbon Dioxide BUN Creatinine Glucose POC Glucose 119 H Hemoglobin A1c Calcium Phosphorus Magnesium AST ALT Alkaline Phosphatase Lactate Dehydrogenase C-Reactive Protein Total Protein Albumin Triglycerides Arterial Blood Glucose 132 H Arterial Blood Ionized Calcium Urine Creatinine Random Vancomycin Coronavirus (PCR) Crossmatch 03/27/21 03/27/21 03/27/21 08:20 11:39 17:32 WBC RBC Hgb Hct MCH RDW Plt Count Lymph % (Auto) [place] # (Auto) Eos # (Auto) Seg Neutrophils % Eosinophils % (Manual) Basophils % (Manual) Seg Neutrophils # Seg Neutrophils # Man Lymphocytes # (Manual) Eosinophils # (Manual) Basophils # (Manual) Percent Retic PT INR Fibrinogen D-Dimer ABG pH POC ABG pCO2 POC ABG pO2 ABG pO2 ABG HCO3 ABG O2 Saturation ABG Base Excess ABG Hemoglobin ABG Oxyhemoglobin ABG Sodium ABG Potassium ABG Chloride ABG Glucose Oxyhemoglobin Carboxyhemoglobin Sodium Potassium Chloride Carbon Dioxide BUN 57 H Creatinine 6.8 H Glucose 131 H POC Glucose 121 H 126 H Hemoglobin A1c Calcium Phosphorus Magnesium AST ALT Alkaline Phosphatase Lactate Dehydrogenase C-Reactive Protein Total Protein Albumin Triglycerides Arterial Blood Glucose Arterial Blood Ionized Calcium Urine Creatinine Random Vancomycin Coronavirus (PCR) Crossmatch 03/28/21 03/28/21 03/28/21 00:10 04:45 05:25 WBC RBC Hgb Hct MCH RDW Plt Count Lymph % (Auto) [place] # (Auto) Eos # (Auto) Seg Neutrophils % Eosinophils % (Manual) Basophils % (Manual) Seg Neutrophils # Seg Neutrophils # Man Lymphocytes # (Manual) Eosinophils # (Manual) Basophils # (Manual) Percent Retic PT INR Fibrinogen D-Dimer ABG pH POC ABG pCO2 POC ABG pO2 ABG pO2 57.6 L ABG HCO3 27.1 H ABG O2 Saturation 88.5 L ABG Base Excess ABG Hemoglobin ABG Oxyhemoglobin ABG Sodium ABG Potassium ABG Chloride ABG Glucose Oxyhemoglobin 86.6 L Carboxyhemoglobin Sodium Potassium Chloride Carbon Dioxide BUN Creatinine Glucose POC Glucose 113 H 121 H Hemoglobin A1c Calcium Phosphorus Magnesium AST ALT Alkaline Phosphatase Lactate Dehydrogenase C-Reactive Protein Total Protein Albumin Triglycerides Arterial Blood Glucose Arterial Blood Ionized Calcium Urine Creatinine Random Vancomycin Coronavirus (PCR) Crossmatch 03/28/21 03/28/21 03/28/21 09:37 09:37 11:48 WBC 16.3 H RBC 2.92 L Hgb 8.2 L Hct 24.8 L MCH RDW 17.5 H Plt Count Lymph % (Auto) 10.7 L [place]k # (Auto) 0.9 H Eos # (Auto) 0.6 H Seg Neutrophils % 80.0 H Eosinophils % (Manual) Basophils % (Manual) Seg Neutrophils # 13.0 H Seg Neutrophils # Man Lymphocytes # (Manual) Eosinophils # (Manual) Basophils # (Manual) Percent Retic PT INR Fibrinogen D-Dimer ABG pH POC ABG pCO2 POC ABG pO2 ABG pO2 ABG HCO3 ABG O2 Saturation ABG Base Excess ABG Hemoglobin ABG Oxyhemoglobin ABG Sodium ABG Potassium ABG Chloride ABG Glucose Oxyhemoglobin Carboxyhemoglobin Sodium Potassium Chloride Carbon Dioxide BUN 61 H Creatinine 7.7 H Glucose 148 H POC Glucose 123 H Hemoglobin A1c Calcium Phosphorus Magnesium AST ALT Alkaline Phosphatase Lactate Dehydrogenase C-Reactive Protein Total Protein Albumin Triglycerides Arterial Blood Glucose Arterial Blood Ionized Calcium Urine Creatinine Random Vancomycin Coronavirus (PCR) Crossmatch 03/28/21 03/28/21 03/28/21 17:33 21:08 23:38 WBC RBC Hgb Hct MCH RDW Plt Count Lymph % (Auto) [place] # (Auto) Eos # (Auto) Seg Neutrophils % Eosinophils % (Manual) Basophils % (Manual) Seg Neutrophils # Seg Neutrophils # Man Lymphocytes # (Manual) Eosinophils # (Manual) Basophils # (Manual) Percent Retic PT INR Fibrinogen D-Dimer ABG pH POC ABG pCO2 POC ABG pO2 80.5 L ABG pO2 ABG HCO3 ABG O2 Saturation ABG Base Excess ABG Hemoglobin 9.5 L ABG Oxyhemoglobin ABG Sodium 133.3 L ABG Potassium ABG Chloride ABG Glucose 134 H Oxyhemoglobin Carboxyhemoglobin 0.3 L Sodium Potassium Chloride Carbon Dioxide BUN Creatinine Glucose POC Glucose 128 H 112 H Hemoglobin A1c Calcium Phosphorus Magnesium AST ALT Alkaline Phosphatase Lactate Dehydrogenase C-Reactive Protein Total Protein Albumin Triglycerides Arterial Blood Glucose 134 H Arterial Blood Ionized Calcium Urine Creatinine Random Vancomycin Coronavirus (PCR) Crossmatch 03/29/21 03/29/21 03/29/21 04:45 04:45 04:45 WBC 17.5 H RBC 3.15 L Hgb 8.8 L Hct 27.2 L MCH RDW 17.9 H Plt Count 132 L Lymph % (Auto) [place] # (Auto) Eos # (Auto) Seg Neutrophils % Eosinophils % (Manual) Basophils % (Manual) Seg Neutrophils # Seg Neutrophils # Man Lymphocytes # (Manual) Eosinophils # (Manual) Basophils # (Manual) Percent Retic PT INR Fibrinogen D-Dimer ABG pH POC ABG pCO2 POC ABG pO2 ABG pO2 ABG HCO3 ABG O2 Saturation ABG Base Excess ABG Hemoglobin ABG Oxyhemoglobin ABG Sodium ABG Potassium ABG Chloride ABG Glucose Oxyhemoglobin Carboxyhemoglobin Sodium Potassium Chloride 97.7 L Carbon Dioxide 21 L BUN 78 H Creatinine 9.5 H Glucose 132 H POC Glucose Hemoglobin A1c Calcium Phosphorus Magnesium AST ALT Alkaline Phosphatase Lactate Dehydrogenase C-Reactive Protein Total Protein Albumin 2.2 L Triglycerides 385 H Arterial Blood Glucose Arterial Blood Ionized Calcium Urine Creatinine Random Vancomycin Coronavirus (PCR) Crossmatch 03/29/21 03/29/21 03/29/21 11:35 16:50 21:06 WBC RBC Hgb Hct MCH RDW Plt Count Lymph % (Auto) [place] # (Auto) Eos # (Auto) Seg Neutrophils % Eosinophils % (Manual) Basophils % (Manual) Seg Neutrophils # Seg Neutrophils # Man Lymphocytes # (Manual) Eosinophils # (Manual) Basophils # (Manual) Percent Retic PT INR Fibrinogen D-Dimer ABG pH POC ABG pCO2 POC ABG pO2 ABG pO2 64.9 L ABG HCO3 ABG O2 Saturation ABG Base Excess -5.2 L ABG Hemoglobin ABG Oxyhemoglobin ABG Sodium ABG Potassium ABG Chloride ABG Glucose Oxyhemoglobin 85.1 L Carboxyhemoglobin Sodium Potassium Chloride Carbon Dioxide BUN Creatinine Glucose POC Glucose 148 H 133 H Hemoglobin A1c Calcium Phosphorus Magnesium AST ALT Alkaline Phosphatase Lactate Dehydrogenase C-Reactive Protein Total Protein Albumin Triglycerides Arterial Blood Glucose Arterial Blood Ionized Calcium Urine Creatinine Random Vancomycin Coronavirus (PCR) Crossmatch 03/29/21 03/30/21 03/30/21 Unknown 00:13 04:00 WBC 15.7 H RBC 3.18 L Hgb 8.6 L Hct 27.3 L MCH 27 L RDW 18.0 H Plt Count 86 L Lymph % (Auto) [place] # (Auto) Eos # (Auto) Seg Neutrophils % Eosinophils % (Manual) Basophils % (Manual) Seg Neutrophils # Seg Neutrophils # Man Lymphocytes # (Manual) Eosinophils # (Manual) Basophils # (Manual) Percent Retic PT INR Fibrinogen D-Dimer ABG pH 7.258 L POC ABG pCO2 POC ABG pO2 ABG pO2 ABG HCO3 ABG O2 Saturation ABG Base Excess -4.9 L ABG Hemoglobin 8.8 L ABG Oxyhemoglobin ABG Sodium ABG Potassium ABG Chloride ABG Glucose Oxyhemoglobin 93.9 L Carboxyhemoglobin Sodium Potassium Chloride Carbon Dioxide BUN Creatinine Glucose POC Glucose 129 H Hemoglobin A1c Calcium Phosphorus Magnesium AST ALT Alkaline Phosphatase Lactate Dehydrogenase C-Reactive Protein Total Protein Albumin Triglycerides Arterial Blood Glucose Arterial Blood Ionized Calcium Urine Creatinine Random Vancomycin Coronavirus (PCR) Crossmatch 03/30/21 03/30/21 03/30/21 04:00 04:00 06:02 WBC RBC Hgb Hct MCH RDW Plt Count Lymph % (Auto) [place] # (Auto) Eos # (Auto) Seg Neutrophils % Eosinophils % (Manual) Basophils % (Manual) Seg Neutrophils # Seg Neutrophils # Man Lymphocytes # (Manual) Eosinophils # (Manual) Basophils # (Manual) Percent Retic PT INR Fibrinogen D-Dimer 2607.12 H ABG pH POC ABG pCO2 POC ABG pO2 ABG pO2 ABG HCO3 ABG O2 Saturation ABG Base Excess ABG Hemoglobin ABG Oxyhemoglobin ABG Sodium ABG Potassium ABG Chloride ABG Glucose Oxyhemoglobin Carboxyhemoglobin Sodium 133 L Potassium 5.2 H D Chloride 91.5 L Carbon Dioxide 18 L BUN 101 H Creatinine 10.6 H Glucose 149 H POC Glucose 130 H Hemoglobin A1c Calcium Phosphorus 10.30 H Magnesium AST ALT Alkaline Phosphatase Lactate Dehydrogenase C-Reactive Protein 21.50 H Total Protein Albumin Triglycerides Arterial Blood Glucose Arterial Blood Ionized Calcium Urine Creatinine Random Vancomycin Coronavirus (PCR) Crossmatch 03/30/21 03/30/21 03/30/21 10:36 11:48 17:20 WBC RBC Hgb Hct MCH RDW Plt Count Lymph % (Auto) [place] # (Auto) Eos # (Auto) Seg Neutrophils % Eosinophils % (Manual) Basophils % (Manual) Seg Neutrophils # Seg Neutrophils # Man Lymphocytes # (Manual) Eosinophils # (Manual) Basophils # (Manual) Percent Retic PT INR Fibrinogen D-Dimer ABG pH 7.224 L POC ABG pCO2 49.1 H POC ABG pO2 61.5 L ABG pO2 ABG HCO3 ABG O2 Saturation ABG Base Excess ABG Hemoglobin 10.2 L ABG Oxyhemoglobin 86.2 L ABG Sodium 129.6 L ABG Potassium 5.4 H ABG Chloride 96.0 L ABG Glucose 161 H Oxyhemoglobin Carboxyhemoglobin Sodium Potassium Chloride Carbon Dioxide BUN Creatinine Glucose POC Glucose 163 H 130 H Hemoglobin A1c Calcium Phosphorus Magnesium AST ALT Alkaline Phosphatase Lactate Dehydrogenase C-Reactive Protein Total Protein Albumin Triglycerides Arterial Blood Glucose 161 H Arterial Blood Ionized Calcium 4.4 L Urine Creatinine Random Vancomycin Coronavirus (PCR) Crossmatch 03/30/21 03/31/21 03/31/21 23:49 00:28 05:20 WBC 17.3 H RBC 2.99 L Hgb 8.2 L Hct 25.3 L MCH 27 L RDW 18.3 H Plt Count 126 L Lymph % (Auto) [place] # (Auto) Eos # (Auto) Seg Neutrophils % Eosinophils % (Manual) Basophils % (Manual) Seg Neutrophils # Seg Neutrophils # Man Lymphocytes # (Manual) Eosinophils # (Manual) Basophils # (Manual) Percent Retic PT INR Fibrinogen D-Dimer ABG pH 7.249 L POC ABG pCO2 POC ABG pO2 77.7 L ABG pO2 ABG HCO3 ABG O2 Saturation ABG Base Excess ABG Hemoglobin 9.0 L ABG Oxyhemoglobin 92.9 L ABG Sodium 130.4 L ABG Potassium 4.7 H ABG Chloride ABG Glucose 166 H Oxyhemoglobin Carboxyhemoglobin 0.4 L Sodium Potassium Chloride Carbon Dioxide BUN Creatinine Glucose POC Glucose 143 H Hemoglobin A1c Calcium Phosphorus Magnesium AST ALT Alkaline Phosphatase Lactate Dehydrogenase C-Reactive Protein Total Protein Albumin Triglycerides Arterial Blood Glucose 166 H Arterial Blood Ionized Calcium 4.3 L Urine Creatinine Random Vancomycin Coronavirus (PCR) Crossmatch 03/31/21 03/31/21 03/31/21 05:20 06:18 09:44 WBC RBC Hgb Hct MCH RDW Plt Count Lymph % (Auto) [place] # (Auto) Eos # (Auto) Seg Neutrophils % Eosinophils % (Manual) Basophils % (Manual) Seg Neutrophils # Seg Neutrophils # Man Lymphocytes # (Manual) Eosinophils # (Manual) Basophils # (Manual) Percent Retic PT INR Fibrinogen D-Dimer ABG pH 7.247 L POC ABG pCO2 POC ABG pO2 ABG pO2 ABG HCO3 ABG O2 Saturation 94.4 L ABG Base Excess -5.1 L ABG Hemoglobin 8.2 L ABG Oxyhemoglobin ABG Sodium ABG Potassium ABG Chloride ABG Glucose Oxyhemoglobin 92.4 L Carboxyhemoglobin Sodium Potassium Chloride Carbon Dioxide BUN Creatinine Glucose POC Glucose 155 H Hemoglobin A1c Calcium Phosphorus 8.20 H D Magnesium AST ALT Alkaline Phosphatase Lactate Dehydrogenase C-Reactive Protein Total Protein Albumin Triglycerides Arterial Blood Glucose Arterial Blood Ionized Calcium Urine Creatinine Random Vancomycin Coronavirus (PCR) Crossmatch 03/31/21 03/31/21 03/31/21 09:49 09:55 09:55 WBC RBC Hgb Hct MCH RDW Plt Count Lymph % (Auto) [place] # (Auto) Eos # (Auto) Seg Neutrophils % Eosinophils % (Manual) Basophils % (Manual) Seg Neutrophils # Seg Neutrophils # Man Lymphocytes # (Manual) Eosinophils # (Manual) Basophils # (Manual) Percent Retic 4.52 H PT 16.5 H INR 1.20 H Fibrinogen D-Dimer ABG pH POC ABG pCO2 POC ABG pO2 ABG pO2 ABG HCO3 ABG O2 Saturation ABG Base Excess ABG Hemoglobin ABG Oxyhemoglobin ABG Sodium ABG Potassium ABG Chloride ABG Glucose Oxyhemoglobin Carboxyhemoglobin Sodium 133 L Potassium Chloride 92.8 L Carbon Dioxide 20 L BUN 87 H Creatinine 8.9 H Glucose 177 H POC Glucose Hemoglobin A1c Calcium 8.2 L Phosphorus Magnesium AST 169 H ALT Alkaline Phosphatase 187 H Lactate Dehydrogenase C-Reactive Protein Total Protein Albumin 2.3 L Triglycerides Arterial Blood Glucose Arterial Blood Ionized Calcium Urine Creatinine Random Vancomycin Coronavirus (PCR) Crossmatch 03/31/21 03/31/21 03/31/21 09:55 09:55 11:25 WBC RBC Hgb Hct MCH RDW Plt Count Lymph % (Auto) [place] # (Auto) Eos # (Auto) Seg Neutrophils % Eosinophils % (Manual) Basophils % (Manual) Seg Neutrophils # Seg Neutrophils # Man Lymphocytes # (Manual) Eosinophils # (Manual) Basophils # (Manual) Percent Retic PT INR Fibrinogen 491 H D-Dimer ABG pH POC ABG pCO2 POC ABG pO2 ABG pO2 ABG HCO3 ABG O2 Saturation ABG Base Excess ABG Hemoglobin ABG Oxyhemoglobin ABG Sodium ABG Potassium ABG Chloride ABG Glucose Oxyhemoglobin Carboxyhemoglobin Sodium Potassium Chloride Carbon Dioxide BUN Creatinine Glucose POC Glucose 178 H Hemoglobin A1c Calcium Phosphorus Magnesium AST ALT Alkaline Phosphatase Lactate Dehydrogenase 509 H C-Reactive Protein Total Protein Albumin Triglycerides Arterial Blood Glucose Arterial Blood Ionized Calcium Urine Creatinine Random Vancomycin Coronavirus (PCR) Crossmatch 03/31/21 03/31/21 03/31/21 12:30 17:40 21:00 WBC RBC Hgb Hct MCH RDW Plt Count Lymph % (Auto) [place] # (Auto) Eos # (Auto) Seg Neutrophils % Eosinophils % (Manual) Basophils % (Manual) Seg Neutrophils # Seg Neutrophils # Man Lymphocytes # (Manual) Eosinophils # (Manual) Basophils # (Manual) Percent Retic PT INR Fibrinogen D-Dimer ABG pH 7.235 L 7.216 L POC ABG pCO2 POC ABG pO2 ABG pO2 76.8 L 113.9 H ABG HCO3 ABG O2 Saturation 93.2 L ABG Base Excess -5.3 L -7.3 L ABG Hemoglobin 6.3 L 8.0 L ABG Oxyhemoglobin ABG Sodium ABG Potassium ABG Chloride ABG Glucose Oxyhemoglobin 91.1 L Carboxyhemoglobin Sodium Potassium Chloride Carbon Dioxide BUN Creatinine Glucose POC Glucose 245 H Hemoglobin A1c Calcium Phosphorus Magnesium AST ALT Alkaline Phosphatase Lactate Dehydrogenase C-Reactive Protein Total Protein Albumin Triglycerides Arterial Blood Glucose Arterial Blood Ionized Calcium Urine Creatinine Random Vancomycin Coronavirus (PCR) Crossmatch 04/01/21 04/01/21 04/01/21 00:11 05:09 08:25 WBC RBC Hgb Hct MCH RDW Plt Count Lymph % (Auto) [place] # (Auto) Eos # (Auto) Seg Neutrophils % Eosinophils % (Manual) Basophils % (Manual) Seg Neutrophils # Seg Neutrophils # Man Lymphocytes # (Manual) Eosinophils # (Manual) Basophils # (Manual) Percent Retic PT INR Fibrinogen D-Dimer ABG pH 7.225 L POC ABG pCO2 POC ABG pO2 ABG pO2 76.4 L ABG HCO3 ABG O2 Saturation 92.2 L ABG Base Excess -7.6 L ABG Hemoglobin 7.3 L ABG Oxyhemoglobin ABG Sodium ABG Potassium ABG Chloride ABG Glucose Oxyhemoglobin 90.2 L Carboxyhemoglobin Sodium Potassium Chloride Carbon Dioxide BUN Creatinine Glucose POC Glucose 209 H 173 H Hemoglobin A1c Calcium Phosphorus Magnesium AST ALT Alkaline Phosphatase Lactate Dehydrogenase C-Reactive Protein Total Protein Albumin Triglycerides Arterial Blood Glucose Arterial Blood Ionized Calcium Urine Creatinine Random Vancomycin Coronavirus (PCR) Crossmatch 04/01/21 04/01/21 04/01/21 12:01 12:05 17:55 WBC RBC Hgb Hct MCH RDW Plt Count Lymph % (Auto) [place] # (Auto) Eos # (Auto) Seg Neutrophils % Eosinophils % (Manual) Basophils % (Manual) Seg Neutrophils # Seg Neutrophils # Man Lymphocytes # (Manual) Eosinophils # (Manual) Basophils # (Manual) Percent Retic PT INR Fibrinogen D-Dimer ABG pH POC ABG pCO2 POC ABG pO2 ABG pO2 ABG HCO3 ABG O2 Saturation ABG Base Excess ABG Hemoglobin ABG Oxyhemoglobin ABG Sodium ABG Potassium ABG Chloride ABG Glucose Oxyhemoglobin Carboxyhemoglobin Sodium Potassium 5.9 H Chloride Carbon Dioxide BUN Creatinine Glucose POC Glucose 202 H 217 H Hemoglobin A1c Calcium Phosphorus Magnesium AST ALT Alkaline Phosphatase Lactate Dehydrogenase C-Reactive Protein Total Protein Albumin Triglycerides Arterial Blood Glucose Arterial Blood Ionized Calcium Urine Creatinine Random Vancomycin Coronavirus (PCR) Crossmatch 04/01/21 04/01/21 04/01/21 Unknown Unknown 23:59 WBC 27.2 H RBC 3.08 L Hgb 8.4 L Hct 26.0 L MCH 27 L RDW 18.5 H Plt Count Lymph % (Auto) [place] # (Auto) Eos # (Auto) Seg Neutrophils % Eosinophils % (Manual) Basophils % (Manual) Seg Neutrophils # Seg Neutrophils # Man Lymphocytes # (Manual) Eosinophils # (Manual) Basophils # (Manual) Percent Retic PT INR Fibrinogen D-Dimer ABG pH POC ABG pCO2 POC ABG pO2 ABG pO2 ABG HCO3 ABG O2 Saturation ABG Base Excess ABG Hemoglobin ABG Oxyhemoglobin ABG Sodium ABG Potassium ABG Chloride ABG Glucose Oxyhemoglobin Carboxyhemoglobin Sodium 132 L Potassium 6.6 H* D Chloride 91.3 L Carbon Dioxide 17 L BUN 104 H Creatinine 9.3 H Glucose 199 H POC Glucose 172 H Hemoglobin A1c Calcium 8.3 L Phosphorus Magnesium AST 236 H ALT 93 H Alkaline Phosphatase 191 H Lactate Dehydrogenase C-Reactive Protein Total Protein Albumin 2.4 L Triglycerides Arterial Blood Glucose Arterial Blood Ionized Calcium Urine Creatinine Random Vancomycin Coronavirus (PCR) Crossmatch 04/02/21 04/02/21 04/02/21 04:00 04:00 05:00 WBC 31.0 H RBC 2.93 L Hgb 8.0 L Hct 24.7 L MCH 27 L RDW 19.2 H Plt Count 131 L Lymph % (Auto) [place] # (Auto) Eos # (Auto) Seg Neutrophils % Eosinophils % (Manual) Basophils % (Manual) Seg Neutrophils # Seg Neutrophils # Man Lymphocytes # (Manual) Eosinophils # (Manual) Basophils # (Manual) Percent Retic PT 16.0 H INR 1.16 H Fibrinogen D-Dimer ABG pH POC ABG pCO2 POC ABG pO2 ABG pO2 ABG HCO3 ABG O2 Saturation ABG Base Excess ABG Hemoglobin ABG Oxyhemoglobin ABG Sodium ABG Potassium ABG Chloride ABG Glucose Oxyhemoglobin Carboxyhemoglobin Sodium 135 L Potassium 5.3 H Chloride 96.1 L Carbon Dioxide 18 L BUN 80 H Creatinine 6.8 H Glucose 174 H POC Glucose Hemoglobin A1c Calcium 7.7 L Phosphorus Magnesium AST 106 H ALT 60 H Alkaline Phosphatase Lactate Dehydrogenase C-Reactive Protein Total Protein 5.9 L Albumin 3.5 L Triglycerides 579 H Arterial Blood Glucose Arterial Blood Ionized Calcium Urine Creatinine Random Vancomycin Coronavirus (PCR) Crossmatch 04/02/21 04/02/21 04/02/21 05:09 08:55 11:06 WBC RBC Hgb Hct MCH RDW Plt Count Lymph % (Auto) [place] # (Auto) Eos # (Auto) Seg Neutrophils % Eosinophils % (Manual) Basophils % (Manual) Seg Neutrophils # Seg Neutrophils # Man Lymphocytes # (Manual) Eosinophils # (Manual) Basophils # (Manual) Percent Retic PT INR Fibrinogen D-Dimer ABG pH 7.188 L POC ABG pCO2 58.3 H POC ABG pO2 132.8 H ABG pO2 ABG HCO3 ABG O2 Saturation ABG Base Excess ABG Hemoglobin 8.4 L ABG Oxyhemoglobin ABG Sodium ABG Potassium 5.0 H ABG Chloride 97.0 L ABG Glucose 156 H Oxyhemoglobin Carboxyhemoglobin 0.4 L Sodium Potassium Chloride Carbon Dioxide BUN Creatinine Glucose POC Glucose 148 H 167 H Hemoglobin A1c Calcium Phosphorus Magnesium AST ALT Alkaline Phosphatase Lactate Dehydrogenase C-Reactive Protein Total Protein Albumin Triglycerides Arterial Blood Glucose 156 H Arterial Blood Ionized Calcium 4.2 L Urine Creatinine Random Vancomycin Coronavirus (PCR) Crossmatch 04/02/21 04/02/21 04/03/21 17:57 20:40 00:28 WBC RBC Hgb Hct MCH RDW Plt Count Lymph % (Auto) [place] # (Auto) Eos # (Auto) Seg Neutrophils % Eosinophils % (Manual) Basophils % (Manual) Seg Neutrophils # Seg Neutrophils # Man Lymphocytes # (Manual) Eosinophils # (Manual) Basophils # (Manual) Percent Retic PT INR Fibrinogen D-Dimer ABG pH POC ABG pCO2 POC ABG pO2 ABG pO2 111.9 H ABG HCO3 18.9 L ABG O2 Saturation ABG Base Excess -9.9 L ABG Hemoglobin ABG Oxyhemoglobin ABG Sodium ABG Potassium ABG Chloride ABG Glucose Oxyhemoglobin Carboxyhemoglobin Sodium Potassium Chloride Carbon Dioxide BUN Creatinine Glucose POC Glucose 205 H 217 H Hemoglobin A1c Calcium Phosphorus Magnesium AST ALT Alkaline Phosphatase Lactate Dehydrogenase C-Reactive Protein Total Protein Albumin Triglycerides Arterial Blood Glucose Arterial Blood Ionized Calcium Urine Creatinine Random Vancomycin Coronavirus (PCR) Crossmatch 04/03/21 04/03/21 04/03/21 03:39 04:30 04:30 WBC 31.1 H RBC 2.78 L Hgb 8.0 L Hct 24.0 L MCH RDW 19.0 H Plt Count Lymph % (Auto) [place] # (Auto) Eos # (Auto) Seg Neutrophils % Eosinophils % (Manual) 27.0 H Basophils % (Manual) 2.0 H Seg Neutrophils # Seg Neutrophils # Man 13.7 H Lymphocytes # (Manual) 8.4 H Eosinophils # (Manual) 8.4 H Basophils # (Manual) 0.6 H Percent Retic PT INR Fibrinogen D-Dimer ABG pH POC ABG pCO2 POC ABG pO2 ABG pO2 ABG HCO3 ABG O2 Saturation ABG Base Excess ABG Hemoglobin ABG Oxyhemoglobin ABG Sodium ABG Potassium ABG Chloride ABG Glucose Oxyhemoglobin Carboxyhemoglobin Sodium 132 L Potassium 5.8 H Chloride 94.5 L Carbon Dioxide 16 L BUN 97 H Creatinine 7.7 H Glucose 230 H POC Glucose 201 H Hemoglobin A1c Calcium 7.6 L Phosphorus Magnesium AST 47 H ALT Alkaline Phosphatase 146 H Lactate Dehydrogenase C-Reactive Protein Total Protein 5.2 L Albumin 3.4 L Triglycerides Arterial Blood Glucose Arterial Blood Ionized Calcium Urine Creatinine Random Vancomycin Coronavirus (PCR) Crossmatch 04/03/21 04/03/21 04/03/21 04:30 08:31 11:29 WBC RBC Hgb Hct MCH RDW Plt Count Lymph % (Auto) [place] # (Auto) Eos # (Auto) Seg Neutrophils % Eosinophils % (Manual) Basophils % (Manual) Seg Neutrophils # Seg Neutrophils # Man Lymphocytes # (Manual) Eosinophils # (Manual) Basophils # (Manual) Percent Retic PT INR Fibrinogen D-Dimer ABG pH 7.195 L* POC ABG pCO2 POC ABG pO2 ABG pO2 102.6 H ABG HCO3 ABG O2 Saturation ABG Base Excess -7.2 L ABG Hemoglobin 8.0 L ABG Oxyhemoglobin ABG Sodium ABG Potassium ABG Chloride ABG Glucose Oxyhemoglobin 94.7 L Carboxyhemoglobin Sodium Potassium Chloride Carbon Dioxide BUN Creatinine Glucose POC Glucose 230 H Hemoglobin A1c Calcium Phosphorus 10.30 H Magnesium AST ALT Alkaline Phosphatase Lactate Dehydrogenase C-Reactive Protein Total Protein Albumin Triglycerides Arterial Blood Glucose Arterial Blood Ionized Calcium Urine Creatinine Random Vancomycin Coronavirus (PCR) Crossmatch Allied health notes reviewed: nursing
[2021-04-03] MEDS: CALCIUM ACETATE 667 MG CAP FEEDTUBE SCH (20:15)
[2021-04-03 21:10] LABS: ABG Base Excess -0.5 mmol/L (-2.0-3.0); ABG HCO3 25.3 mmol/L (20.0-26.0); ABG Methemoglobin 0.5 % (0.0-1.5); ABG Oxygen Saturation 96.8 % (95.0-99.0); ABG PCO2 48.5 mm Hg; ABG PH 7.336 pH Units (7.350-7.450); ABG PO2 84.8 mm Hg (80.0-90.0)
[2021-04-03] MEDS: MIDAZOLAM 100 MG in SODIUM CHLORIDE 0.9% 80 ML IV SCH (21:33)
[2021-04-03] MEDS: ACETAMINOPHEN 325 MG/10.15 ML ORAL LIQD UNIT DOSE FEEDTUBE PRN (23:49)
[2021-04-04] MEDS: INSULIN LISPRO 100 UNIT/ML SUB-Q SCH ×4 (00:55→18:26)
[2021-04-04] MEDS: fentaNYL DRIP Premix 2,000 MCG/100 ML BAG IV SCH ×7 (02:07→22:41)
[2021-04-04] MEDS: IPRATROPIUM/ALBUTEROL SULFATE 3 ML AMPUL.NEB IH SCH ×4 (03:58→19:30)
[2021-04-04] MEDS: NORepinephrine/NS 8 MG-250 ML 8 MG/250 ML INFUS..BTL IV SCH ×3 (05:12→22:42)
[2021-04-04] MEDS: VASOPRESSIN 20 UNIT in SODIUM CHLORIDE 0.9% 100 ML IV SCH ×2 (07:34→19:21)
[2021-04-04 08:12] LABS: Mean Corpuscular Volume 84 fl (79-97); Platelet Count 158 K/mm3 (140-440); Red Blood Count 2.64 M/mm3 (3.65-5.03); Red Cell Distribution Width 18.6 % (13.2-15.2)
[2021-04-04 08:21] LABS: Hematocrit 22.2 % (30.3-42.9); Hemoglobin 8.7 gm/dl (10.1-14.3)
[2021-04-04 08:22] LABS: Mean Corpuscular HGB Conc 39 % (30-34)
[2021-04-04 08:24] LABS: INR 0.96 (0.87-1.13)
[2021-04-04 08:25] LABS: Partial Thromboplastin Time 28.9 Sec. (24.2-36.6)
[2021-04-04] MEDS ORDERED: SODIUM CHLORIDE 0.9% 500 ML 500 ML IV NR (08:40)
[2021-04-04 08:53] LABS: Albumin 2.9 g/dL (3.9-5); Blood Urea Nitrogen 75 mg/dL (7-17); Calcium 7.3 mg/dL (8.4-10.2); Hemolysis Index 62
[2021-04-04 08:56] LABS: BUN/Creatinine Ratio 16
[2021-04-04 09:07] LABS: Alanine Aminotransferase < 5 units/L (7-56)
[2021-04-04] MEDS: ZINC SULFATE 220 MG CAP PO SCH ×2 (09:49→21:30)
[2021-04-04] MEDS: CALCIUM ACETATE 667 MG CAP FEEDTUBE SCH ×3 (09:49→21:30)
[2021-04-04] MEDS: ACETAMINOPHEN 325 MG/10.15 ML ORAL LIQD UNIT DOSE FEEDTUBE PRN (09:50)
[2021-04-04] MEDS: ASCORBIC ACID 500 MG TAB PO SCH ×2 (09:50→21:30)
[2021-04-04] MEDS: FAMOTIDINE 10 MG TAB PO SCH ×2 (09:50→21:30)
[2021-04-04] MEDS: SENNOSIDES/DOCUSATE SODIUM 8.6/50 MG TAB FEEDTUBE SCH ×2 (09:50→21:30)
[2021-04-04] MEDS: APIXABAN 2.5 MG TAB PO SCH ×2 (09:50→21:31)
[2021-04-04] MEDS: MIDAZOLAM 100 MG in SODIUM CHLORIDE 0.9% 80 ML IV SCH ×2 (09:53→22:45)
--- NOTE | 2021-04-04 11:08 | Progress Note ---
Subjective Date of service: 04/04/21 Principal diagnosis: Ac hypoxemic resp failure; AE-Asthma; SAI; Crohn's; COVID- 19; Pneumonia Interval history: Impression/Plan: #Acute kidney injury: dialysis dependent s/p HD on 04/03 minimal uf due to low bp plans for HD prn as hemodynamics allow will follow up lytes Assess daily for needs for additional sessions as hemodynamics Strict input and output Avoid nephrotoxin Renally dose medications Keep MAP > 65 # Hyperkalemia, treat medically, attempt to controlled with HD rec daily kayexalate dosing #Respiratory failure Covid 19 infection currently intubated UF as tolerated with HD, limited by hemodynamic instability #Hyperphosphatemia to be monitored Dialysis has been initiated #Hyponatremia #diffuse rash--Hematology plans noted, plasma exchange noted #Overall prognosis remains poor, palliative care appropriate Subjective Principal diagnosis: Ac hypoxemic resp failure; AE-Asthma; SAI; Crohn's; COVID- 19; Pneumonia Interval history: Remains intubated. Objective - Exam exam deferred for preservation of PPE Objective - Vital Signs Vital signs: Vital Signs - 12hr 04/03/21 04/04/21 04/04/21 23:31 00:00 00:31 Temperature 101.7 F H Pulse Rate 121 H 120 H 122 H Pulse Rate [ 118 H From Monitor] Pulse Rate [ Throughout] Respiratory 31 H 32 H 30 H Rate Respiratory Rate [ Throughout] Blood Pressure O2 Sat by Pulse 100 100 100 Oximetry 04/04/21 04/04/21 04/04/21 01:01 01:31 02:00 Temperature Pulse Rate 118 H 115 H 115 H Pulse Rate [ From Monitor] Pulse Rate [ Throughout] Respiratory 30 H 27 H 28 H Rate Respiratory Rate [ Throughout] Blood Pressure O2 Sat by Pulse 100 100 100 Oximetry 04/04/21 04/04/21 04/04/21 02:31 03:01 03:30 Temperature Pulse Rate 119 H 120 H 122 H Pulse Rate [ From Monitor] Pulse Rate [ Throughout] Respiratory 33 H 30 H 37 H Rate Respiratory Rate [ Throughout] Blood Pressure O2 Sat by Pulse 100 100 100 Oximetry 04/04/21 04/04/21 04/04/21 03:38 03:59 04:00 Temperature 99.7 F H Pulse Rate 121 H 120 H Pulse Rate [ 120 H From Monitor] Pulse Rate [ Throughout] Respiratory 30 H Rate Respiratory Rate [ Throughout] Blood Pressure 125/61 O2 Sat by Pulse 97 97 Oximetry 04/04/21 04/04/21 04/04/21 04:01 04:31 05:00 Temperature Pulse Rate 117 H 119 H Pulse Rate [ From Monitor] Pulse Rate [ 121 H Throughout] Respiratory 33 H 32 H Rate Respiratory 30 H Rate [ Throughout] Blood Pressure O2 Sat by Pulse 100 98 Oximetry 04/04/21 04/04/21 04/04/21 05:31 06:01 06:31 Temperature Pulse Rate 128 H 122 H 120 H Pulse Rate [ From Monitor] Pulse Rate [ Throughout] Respiratory 43 H 32 H 33 H Rate Respiratory Rate [ Throughout] Blood Pressure 122/39 O2 Sat by Pulse 99 100 91 Oximetry 04/04/21 04/04/21 04/04/21 07:01 07:31 07:47 Temperature 98.2 F Pulse Rate 117 H 116 H Pulse Rate [ From Monitor] Pulse Rate [ Throughout] Respiratory 31 H 32 H Rate Respiratory Rate [ Throughout] Blood Pressure 122/39 122/39 O2 Sat by Pulse 95 96 Oximetry 04/04/21 04/04/21 04/04/21 08:00 08:01 08:26 Temperature Pulse Rate 121 H 120 H 118 H Pulse Rate [ From Monitor] Pulse Rate [ Throughout] Respiratory 34 H Rate Respiratory Rate [ Throughout] Blood Pressure 106/58 106/58 O2 Sat by Pulse 97 95 Oximetry 04/04/21 04/04/21 04/04/21 08:31 08:41 09:00 Temperature Pulse Rate 117 H 126 H Pulse Rate [ From Monitor] Pulse Rate [ 120 H Throughout] Respiratory 31 H 44 H Rate Respiratory 39 H Rate [ Throughout] Blood Pressure 106/58 112/56 O2 Sat by Pulse 95 95 Oximetry 04/04/21 04/04/21 04/04/21 09:31 10:01 10:31 Temperature Pulse Rate 121 H 122 H 129 H Pulse Rate [ From Monitor] Pulse Rate [ Throughout] Respiratory 40 H 39 H 36 H Rate Respiratory Rate [ Throughout] Blood Pressure 112/56 110/41 110/41 O2 Sat by Pulse 98 91 95 Oximetry 04/04/21 11:00 Temperature Pulse Rate 121 H Pulse Rate [ From Monitor] Pulse Rate [ Throughout] Respiratory 32 H Rate Respiratory Rate [ Throughout] Blood Pressure 109/45 O2 Sat by Pulse 99 Oximetry - Lab 04/04/21 05:00 04/04/21 07:55 Most recent lab results ABG pH Cancelled 04/03/21 20:45 ABG pCO2 48.5 mm Hg 04/03/21 20:45 ABG pO2 84.8 mm Hg (80.0-90.0) 04/03/21 20:45 ABG HCO3 25.3 mmol/L (20.0-26.0) 04/03/21 20:45 ABG O2 Saturation Cancelled 04/03/21 20:45 Calcium 7.3 mg/dL (8.4-10.2) L 04/04/21 07:55 Phosphorus 10.30 mg/dL (2.5-4.5) H 04/03/21 04:30 Magnesium 2.10 mg/dL (1.7-2.3) 04/03/21 04:30 Urine Creatinine 40.1 mg/dL (0.1-20.0) H 03/14/21 17:50 Urine Sodium 124 mmol/L 03/14/21 17:50 Medications & Allergies - Medications Allergies/Adverse Reactions: Allergies oxycodone HCl [From Percocet] Allergy (Severe, Verified 03/30/21 14:01) Swelling hydrocodone bitartrate [From Vicodin] Allergy (Verified 03/31/21 08:20) Swelling ALLERGY TO TYLENOL VS OXYCODONE ACTIVE ORDER REMOVED FROM JUL SINCE UNABLE TO CONFIRM WITH FAMILY Home Medications: Home Medications Medication Instructions Recorded Confirmed Last Taken Type Chlorhexidine Mouthwash [Peridex] 15 ml MM BID #1 bottle 10/11/20 03/13/21 Unknown Rx Clindamycin [Clindamycin CAP] 300 mg PO Q8H #21 cap 10/11/20 03/13/21 Unknown Rx Naproxen 500 mg PO Q12H PRN #12 tablet 10/11/20 03/13/21 Unknown Rx Butalb/Acetamin/Caff 50-325-40 1 - 2 tab PO Q6HR PRN #15 tab 12/05/20 03/13/21 Unknown Rx [Fioricet 50-325-40] Famotidine [Pepcid] 20 mg PO BID #30 tablet 12/05/20 03/13/21 Unknown Rx Ketorolac [Toradol] 10 mg PO Q8H PRN #20 tablet 12/05/20 03/13/21 Unknown Rx Ondansetron [Zofran Odt] 4 mg PO Q6HR PRN #20 tab.rapdis 12/05/20 03/13/21 Unknown Rx Albuterol Sulfate [Proair 90 mcg IH Q4HR PRN #2 [email or web address] 01/01/21 03/13/21 Unknown Rx Respiclick] Mupirocin [Bactroban 2% OINT] 1 applic TP BID 7 Days #1 tube 01/01/21 03/13/21 Unknown Rx Triamcinolone Aceton 0.1% (Nf) 1 applic TP BID 14 Days #1 tube 01/01/21 03/13/21 Unknown Rx [Kenalog (NF)] predniSONE [Deltasone] 40 mg PO QDAY #8 tab 01/01/21 03/13/21 Unknown Rx Active Medications: Generic Name Dose Route Start Last Admin Trade Name Freq PRN Reason Stop Dose Admin Acetaminophen 650 mg 03/31/21 12:41 04/04/21 09:50 Acetaminophen 325 Mg/10.15 Ml Oral Liqd Unit Dose FEEDTUBE 650 mg Q6H PRN Administration TEMP >/=100.4 Albumin Human 25 gm 04/01/21 08:19 04/01/21 16:23 Albumin Human 25% (25 Gm/100 Ml) Inj IV 25 gm KARLOS PRN Administration Hypotension Albuterol 2.5 mg 03/19/21 00:53 Albuterol 2.5 Mg/3 Ml Nebu IH Q4HRT PRN Shortness Of Breath Albuterol/Ipratropium 1 ampul 03/19/21 08:00 04/04/21 08:24 Ipratropium/Albuterol Sulfate 3 Ml Ampul.Neb IH 1 ampul Q6HRT INESSA Administration Lipase/Protease/Amylase 1 each 03/15/21 11:42 Lipase 10,500/Protease 25,000/Amylase 43,750 (Units) Dr Christopher PEREZ PRN PRN For Clogged Feeding Tube Apixaban 2.5 mg 03/29/21 13:00 04/04/21 09:50 Apixaban 2.5 Mg Tab PO 2.5 mg Q12HR INESSA Administration Protocol Ascorbic Acid 500 mg 03/14/21 22:00 04/04/21 09:50 Ascorbic Acid 500 Mg Tab PO 500 mg BID INESSA Administration Calcium Acetate 1,334 mg 04/03/21 20:00 04/04/21 09:49 Calcium Acetate 667 Mg Cap FEEDTUBE 1,334 mg TID INESSA Administration Dextrose 50 ml 03/14/21 11:02 03/15/21 11:40 Dextrose 50% In Water (25gm) 50 Ml Syringe IV 50 ml Q30MIN PRN Administration Hypoglycemia Protocol Famotidine 10 mg 03/17/21 22:00 04/04/21 09:50 Famotidine 10 Mg Tab PO 10 mg BID INESSA Administration Fentanyl 50 mcg 03/15/21 10:43 03/28/21 09:25 Fentanyl 100 Mcg/2 Ml Inj IV 50 mcg Q10MIN PRN Administration ANALGESIA Hydrophilic Ointment 1 applic 03/14/21 17:50 Lip Therapy Vaseline TP Q2HR PRN Dry Lips Propofol 1,000 mg in 100 mls @ 4.123 mls/hr 03/15/21 11:00 04/04/21 10:05 Diprivan 10 Mg/Ml IV 50 mcg/kg/min TITR INESSA 41.231 mls/hr Administration Protocol 5 MCG/KG/MIN Fentanyl Citrate 2,000 mcg in 100 mls @ 6.872 mls/hr 03/15/21 11:00 04/04/21 08:57 Fentanyl Drip Premix IV 4 mcg/kg/hr TITR INESSA 27.488 mls/hr Administration Protocol 1 MCG/KG/HR Sodium Chloride 500 mls @ 1 mls/hr 03/16/21 17:19 Nacl 0.9% 500 Ml IV DIRECT PRN ARTERIAL LINE FLUSH NORepinephrine/NS 8 MG-250 ML 8 mg in 250 mls @ 3.75 mls/hr 03/23/21 11:00 04/04/21 06:10 Norepinephrine/Ns 8 Mg-250 Ml (Double Conc) IV 6 mcg/min TITRATE INESSA 11.25 mls/hr Titration Protocol 2 MCG/MIN Midazolam HCl 100 mg/ Sodium 100 mls @ 1 mls/hr 03/30/21 15:00 04/04/21 09:53 Chloride IV 8 mg/hr TITR INESSA 8 mls/hr Administration Protocol 1 MG/HR Vasopressin 20 unit/ Sodium 101 mls @ 9.09 mls/hr 03/30/21 20:00 04/04/21 07:34 Chloride IV 0.03 units/min TITR INESSA 9.09 mls/hr Administration 0.03 UNITS/MIN Phenylephrine HCl 100 mg/ 100 mls @ 3 mls/hr 03/31/21 04:00 04/04/21 08:59 Sodium Chloride IV 0 mcg/min TITR INESSA 0 mls/hr Titration Protocol 50 MCG/MIN Sodium Chloride 100 mls @ 999 mls/hr 04/01/21 08:19 Nacl 0.9% IV KARLOS PRN Hypotension Sodium Bicarbonate 150 meq/ 1,150 mls @ 75 mls/hr 04/02/21 22:00 04/03/21 13:42 Dextrose IV 75 mls/hr DIRECT INESSA Administration Sodium Chloride 500 mls @ 0 mls/hr 04/04/21 08:40 Nacl 0.9% 500 Ml IV 04/04/21 20:00 ONCE NR As Directed Insulin Human Lispro 0 unit 03/14/21 12:00 04/04/21 05:39 Insulin Lispro 100 Unit/Ml SUB-Q Not Given Q6HR INESSA Protocol Lorazepam 1 mg 03/13/21 19:40 03/30/21 19:58 Lorazepam 2 Mg/Ml Vial IV 1 mg Q4H PRN Administration Anxiety Methylprednisolone Sodium Succinate 80 mg 04/04/21 22:00 Methylprednisolone Sod Succinate 125 Mg/2 Ml Inj IV Q8HR [facility] Midazolam HCl 2 mg 03/30/21 14:19 03/30/21 14:30 Midazolam 2 Mg/2 Ml Inj IV 2 mg Q10MIN PRN Administration Sedation Multi-Ingred Cream/Lotion/Oil/Oint 1 applic 03/14/21 17:50 04/02/21 14:31 Mineral Oil/Petrolatum, White Ophth Oint 3.5 Gm OU 1 applic Q4HR PRN Administration Dry Eye(s) Ondansetron HCl 4 mg 03/13/21 19:30 03/21/21 12:05 Ondansetron 4 Mg/2 Ml Inj IV 4 mg Q8H PRN Administration Nausea And Vomiting Senna/Docusate Sodium 1 tab 03/14/21 22:00 04/04/21 09:50 Sennosides/Docusate Sodium 8.6/50 Mg Tab FEEDTUBE 1 tab BID INESSA Administration Simple Syrup 15 ml 03/15/21 11:42 Simple Syrup 15 Ml FEEDTUBE PRN PRN Hypoglycemia Simple Syrup 30 ml 03/15/21 11:42 Simple Syrup 15 Ml FEEDTUBE PRN PRN Hypoglycemia Sodium Bicarbonate 325 mg 03/15/21 11:42 03/21/21 17:21 Sodium Bicarbonate 325 Mg Tab FEEDTUBE 325 mg PRN PRN Administration For Clogged Feeding Tube Sodium Chloride 10 ml 03/13/21 22:00 04/04/21 09:51 Sodium Chloride 0.9% 10 Ml Flush Syringe IV 10 ml BID INESSA Administration Sodium Chloride 10 ml 03/13/21 19:30 Sodium Chloride 0.9% 10 Ml Flush Syringe IV PRN PRN LINE FLUSH Zinc Sulfate 220 mg 03/14/21 22:00 04/04/21 09:49 Zinc Sulfate 220 Mg Cap PO 220 mg BID INESSA Administration
--- NOTE | 2021-04-04 13:26 | Progress Note ---
Assessment and Plan Acute hypoxemic respiratory failure Acute asthma exacerbation Morbid obesity Crohn's disease Metabolic acidosis Acute kidney injury Coronavirus infection Pneumonia (CAP) Oropharyngeal dysphagia Obesity, if not mentioned above (Taheerah will need a tracheostomy once more stable) - Versed increased to 8 mg/hr overnight - FiO2 increased top 70% overnight (dropped to 60% now) - get ABG and address - Begin Seroquel 150 mg p.o. bid (follow QT interval closely) - decreased compliance consistent with increasing pulmonary edema - get CXR and address - hopefully HD with UF soon - continue to wean vasopressors for target MAP > 65 mmHg (weaning down) - nephrology input appreciated; HD/UF for toxin and volume clearance - continue care as below otherwise; - prn cooling blanket (fevers better) - continue to wean vasopressors for target MAP > 65 mmHg - nephrology input appreciated; HD/UF for toxin and volume clearance - continue Daily SAT and SBT assessment as tolerated - continue to wean supplemental oxygen for target O2 sat's > 90% acutely - VAP bundle addressed - continue lung protective strategies - continue bronchodilators with pulmonary hygiene per RT - wean per pulmonary driven protocols otherwise - continue accuchecks with glycemic control per SSI (While critically ill target blood glucose of 140-180 mg/dL; avoid hypoglycemia) - sedation prn for target RASS 0 to -1 - avoid nephrotoxins, renally dose all medications - continue to avoid benzodiazepine's, reduce the possibility of delirium - AB's per ID rec's (s/p Cefepime) - prn analgesia per CPOT score - Maintenance of sleep-wake cycle, avoid delirium - continue enteral nutritional support at goal rate as tolerated - G.I. & VTE prophylaxis - PT/OT/ROM exercises - continue mobility protocols for pressure ulcer prophylaxis - Monitor hemodynamics closely - continue other care per attending / other consultants - discharge planning ongoing concurrently COVID SPECIFIC INTERVENTIONS - Remdesivir as per ID/Pulmonary developed protocols (not a candidate) - continue systemic steroids for severe COVID-19 infection empirically - follow repeat COVID tests results - zinc and vitamin C supplementation - Monitor inflammatory markers per facility protocol - ferritin, Ddimer, CRP - therapeutic anticoagulation per system Protocol based on d-dimer and clinical considerations (VTE prophylaxis) - Continue contact and airborne isolation .... Re-evaluate in am & prn CONDITION: CRITICAL PROGNOSIS: GUARDED CODE STATUS: FULL CODE The high probability of a clinically significant, sudden or life-threatening deterioration of the [respiratory, cardiovascular, renal & neurologic] system(s) required my full and direct attention, intervention and personal management. The aggregate critical care time was [37] minutes without overlap. Time includes spent on; [x] Data Review and interpretation [x] Patient assessment and monitoring of vital signs [x] Documentation [x] Medication orders and management Subjective Date of service: 04/04/21 Principal diagnosis: Ac hypoxemic resp failure; AE-Asthma; SAI; Crohn's; COVID- 19; Pneumonia Interval history: Patient is seen today for: Acute hypoxemic respiratory failure; AE-Asthma; SAI; Crohn's disease; COVID-19 infection; Pneumonia (CAP) Seen and examined at bedside; 24hour events reviewed; nursing and respiratory care staff consulted; no adverse overnight events reported to me; resting in bed; remains on MVS; work of breathing increased overnight despite improved ABG; PRBC transfusion ongoing; remains with low grade fevers; no emesis or overt aspiration Objective Vital Signs - 12hr 04/04/21 04/04/21 04/04/21 01:31 02:00 02:31 Temperature Pulse Rate 115 H 115 H 119 H Pulse Rate [ From Monitor] Pulse Rate [ Throughout] Respiratory 27 H 28 H 33 H Rate Respiratory Rate [ Throughout] Blood Pressure O2 Sat by Pulse 100 100 100 Oximetry 04/04/21 04/04/21 04/04/21 03:01 03:30 03:38 Temperature 99.7 F H Pulse Rate 120 H 122 H Pulse Rate [ From Monitor] Pulse Rate [ Throughout] Respiratory 30 H 37 H Rate Respiratory Rate [ Throughout] Blood Pressure O2 Sat by Pulse 100 100 Oximetry 04/04/21 04/04/21 04/04/21 03:59 04:00 04:01 Temperature Pulse Rate 121 H 120 H Pulse Rate [ 120 H From Monitor] Pulse Rate [ 121 H Throughout] Respiratory 30 H Rate Respiratory 30 H Rate [ Throughout] Blood Pressure 125/61 O2 Sat by Pulse 97 97 Oximetry 04/04/21 04/04/21 04/04/21 04:31 05:00 05:31 Temperature Pulse Rate 117 H 119 H 128 H Pulse Rate [ From Monitor] Pulse Rate [ Throughout] Respiratory 33 H 32 H 43 H Rate Respiratory Rate [ Throughout] Blood Pressure O2 Sat by Pulse 100 98 99 Oximetry 04/04/21 04/04/21 04/04/21 06:01 06:31 07:01 Temperature Pulse Rate 122 H 120 H 117 H Pulse Rate [ From Monitor] Pulse Rate [ Throughout] Respiratory 32 H 33 H 31 H Rate Respiratory Rate [ Throughout] Blood Pressure 122/39 122/39 O2 Sat by Pulse 100 91 95 Oximetry 04/04/21 04/04/21 04/04/21 07:31 07:47 08:00 Temperature 98.2 F Pulse Rate 116 H 121 H Pulse Rate [ 121 H From Monitor] Pulse Rate [ Throughout] Respiratory 32 H 34 H Rate Respiratory Rate [ Throughout] Blood Pressure 122/39 O2 Sat by Pulse 96 100 Oximetry 04/04/21 04/04/21 04/04/21 08:01 08:26 08:31 Temperature Pulse Rate 120 H 118 H 117 H Pulse Rate [ From Monitor] Pulse Rate [ Throughout] Respiratory 34 H 31 H Rate Respiratory Rate [ Throughout] Blood Pressure 106/58 106/58 106/58 O2 Sat by Pulse 97 95 95 Oximetry 04/04/21 04/04/21 04/04/21 08:41 09:00 09:31 Temperature Pulse Rate 126 H 121 H Pulse Rate [ From Monitor] Pulse Rate [ 120 H Throughout] Respiratory 44 H 40 H Rate Respiratory 39 H Rate [ Throughout] Blood Pressure 112/56 112/56 O2 Sat by Pulse 95 98 Oximetry 04/04/21 04/04/21 04/04/21 10:01 10:31 11:00 Temperature Pulse Rate 122 H 129 H 121 H Pulse Rate [ From Monitor] Pulse Rate [ Throughout] Respiratory 39 H 36 H 32 H Rate Respiratory Rate [ Throughout] Blood Pressure 110/41 110/41 109/45 O2 Sat by Pulse 91 95 99 Oximetry 04/04/21 04/04/21 04/04/21 11:10 11:21 11:31 Temperature Pulse Rate 121 H 121 H 120 H Pulse Rate [ From Monitor] Pulse Rate [ Throughout] Respiratory 32 H 31 H 34 H Rate Respiratory Rate [ Throughout] Blood Pressure 109/45 119/41 109/45 O2 Sat by Pulse 97 96 96 Oximetry 04/04/21 04/04/21 04/04/21 11:39 11:41 11:51 Temperature 98.2 F Pulse Rate 120 H 121 H 123 H Pulse Rate [ From Monitor] Pulse Rate [ Throughout] Respiratory 32 H 39 H Rate Respiratory Rate [ Throughout] Blood Pressure 119/41 109/45 109/45 O2 Sat by Pulse 99 95 95 Oximetry 04/04/21 04/04/21 04/04/21 12:00 12:01 12:04 Temperature 98.2 F 98.2 F Pulse Rate 122 H Pulse Rate [ From Monitor] Pulse Rate [ Throughout] Respiratory 32 H Rate Respiratory Rate [ Throughout] Blood Pressure 106/36 O2 Sat by Pulse 100 Oximetry 04/04/21 04/04/21 04/04/21 12:24 12:31 12:41 Temperature 98.2 F Pulse Rate 118 H 120 H Pulse Rate [ From Monitor] Pulse Rate [ Throughout] Respiratory 32 H 35 H Rate Respiratory Rate [ Throughout] Blood Pressure 106/36 106/36 O2 Sat by Pulse 98 99 Oximetry 04/04/21 04/04/21 04/04/21 12:51 12:54 13:00 Temperature 98.1 F Pulse Rate 117 H 117 H Pulse Rate [ From Monitor] Pulse Rate [ Throughout] Respiratory 32 H 26 H Rate Respiratory Rate [ Throughout] Blood Pressure 106/36 102/40 O2 Sat by Pulse 99 100 Oximetry 04/04/21 13:11 Temperature Pulse Rate 117 H Pulse Rate [ From Monitor] Pulse Rate [ Throughout] Respiratory 29 H Rate Respiratory Rate [ Throughout] Blood Pressure 102/40 O2 Sat by Pulse 99 Oximetry Constitutional: appears uncomfortable, other (morbidly obese female with mild ventilator dyssynchrony) Eyes: non-icteric, other (scleral erythema / bleeding is improving) ENT: oropharynx moist, other (ETT 25 cm BALJINDER) Neck: supple, no lymphadenopathy, no JVD, other (large circumference) Effort: mildly labored Ascultation: Bilateral: diminished breath sounds, rhonchi Percussion: Bilateral: not dull Cardiovascular: regular rate and rhythm Gastrointestinal: normoactive bowel sounds, soft, non-tender, non-distended (protuberant) Integumentary: rash ( ), other Extremities: no cyanosis, pulses normal, no ischemia or petechiae, edema (trace peripheral) Neurologic: non-focal exam (grossly), pupils equal and round, CN II-XII normal, motor strength normal and, other (moves all extremities spontaneously) Psychiatric: other (unasble to assess) CBC and BMP: 04/05/21 05:20 04/05/21 05:20 ABG, PT/INR, D-dimer: ABG ABG pH Cancelled 04/03/21 20:45 POC ABG pCO2 Cancelled 04/03/21 20:45 ABG pCO2 48.5 mm Hg 04/03/21 20:45 POC ABG pO2 Cancelled 04/03/21 20:45 ABG pO2 84.8 mm Hg (80.0-90.0) 04/03/21 20:45 POC ABG HCO3 Cancelled 04/03/21 20:45 ABG O2 Saturation Cancelled 04/03/21 20:45 PT/INR, D-dimer PT 13.9 Sec. (12.2-14.9) 04/04/21 07:55 INR 0.96 (0.87-1.13) 04/04/21 07:55 D-Dimer 2607.12 ng/mlDDU (0-234) H 03/30/21 04:00 Abnormal lab findings: Abnormal Labs 03/13/21 03/13/21 03/13/21 13:26 13:26 15:40 WBC RBC Hgb Hct MCH 27 L MCHC RDW 17.0 H Plt Count Lymph % (Auto) [place] # (Auto) Eos # (Auto) Seg Neutrophils % Eosinophils % (Manual) Basophils % (Manual) Seg Neutrophils # Seg Neutrophils # Man Lymphocytes # (Manual) Eosinophils # (Manual) Basophils # (Manual) Percent Retic PT INR Fibrinogen D-Dimer ABG pH POC ABG pCO2 POC ABG pO2 ABG pO2 ABG HCO3 ABG O2 Saturation ABG Base Excess ABG Hemoglobin ABG Oxyhemoglobin ABG Sodium ABG Potassium ABG Chloride ABG Glucose Oxyhemoglobin Carboxyhemoglobin Sodium 136 L Potassium Chloride Carbon Dioxide BUN Creatinine Glucose 125 H 130 H POC Glucose Hemoglobin A1c Calcium Phosphorus Magnesium AST ALT Alkaline Phosphatase Lactate Dehydrogenase 235 H C-Reactive Protein 4.30 H Total Protein Albumin Triglycerides Arterial Blood Glucose Arterial Blood Ionized Calcium Urine Creatinine Random Vancomycin Coronavirus (PCR) Crossmatch 03/13/21 03/14/21 03/14/21 21:33 03:35 06:21 WBC 20.0 H RBC Hgb Hct MCH 27 L MCHC RDW 17.5 H Plt Count Lymph % (Auto) 7.8 L [place] # (Auto) 1.3 H Eos # (Auto) Seg Neutrophils % 85.4 H Eosinophils % (Manual) Basophils % (Manual) Seg Neutrophils # 17.1 H Seg Neutrophils # Man Lymphocytes # (Manual) Eosinophils # (Manual) Basophils # (Manual) Percent Retic PT INR Fibrinogen D-Dimer ABG pH 7.323 L 7.234 L POC ABG pCO2 POC ABG pO2 ABG pO2 69.8 L ABG HCO3 ABG O2 Saturation 92.9 L 94.9 L ABG Base Excess -3.3 L -5.4 L ABG Hemoglobin ABG Oxyhemoglobin ABG Sodium ABG Potassium ABG Chloride ABG Glucose Oxyhemoglobin 91.2 L 93.2 L Carboxyhemoglobin Sodium Potassium Chloride Carbon Dioxide BUN Creatinine Glucose POC Glucose Hemoglobin A1c Calcium Phosphorus Magnesium AST ALT Alkaline Phosphatase Lactate Dehydrogenase C-Reactive Protein Total Protein Albumin Triglycerides Arterial Blood Glucose Arterial Blood Ionized Calcium Urine Creatinine Random Vancomycin Coronavirus (PCR) Crossmatch 03/14/21 03/14/21 03/14/21 06:21 07:47 11:21 WBC RBC Hgb Hct MCH MCHC RDW Plt Count Lymph % (Auto) [place] # (Auto) Eos # (Auto) Seg Neutrophils % Eosinophils % (Manual) Basophils % (Manual) Seg Neutrophils # Seg Neutrophils # Man Lymphocytes # (Manual) Eosinophils # (Manual) Basophils # (Manual) Percent Retic PT INR Fibrinogen D-Dimer ABG pH POC ABG pCO2 POC ABG pO2 ABG pO2 ABG HCO3 ABG O2 Saturation ABG Base Excess ABG Hemoglobin ABG Oxyhemoglobin ABG Sodium ABG Potassium ABG Chloride ABG Glucose Oxyhemoglobin Carboxyhemoglobin Sodium 136 L 136 L Potassium 6.2 H* D 5.4 H Chloride Carbon Dioxide 21 L 21 L BUN Creatinine 1.5 H D 1.8 H Glucose 144 H 141 H POC Glucose 147 H Hemoglobin A1c Calcium Phosphorus Magnesium AST ALT Alkaline Phosphatase Lactate Dehydrogenase C-Reactive Protein Total Protein 8.7 H 9.2 H Albumin 3.8 L Triglycerides Arterial Blood Glucose Arterial Blood Ionized Calcium Urine Creatinine Random Vancomycin Coronavirus (PCR) Crossmatch 03/14/21 03/14/21 03/14/21 17:29 17:50 18:35 WBC RBC Hgb Hct MCH MCHC RDW Plt Count Lymph % (Auto) [place] # (Auto) Eos # (Auto) Seg Neutrophils % Eosinophils % (Manual) Basophils % (Manual) Seg Neutrophils # Seg Neutrophils # Man Lymphocytes # (Manual) Eosinophils # (Manual) Basophils # (Manual) Percent Retic PT INR Fibrinogen D-Dimer ABG pH POC ABG pCO2 POC ABG pO2 ABG pO2 ABG HCO3 ABG O2 Saturation ABG Base Excess ABG Hemoglobin ABG Oxyhemoglobin ABG Sodium ABG Potassium ABG Chloride ABG Glucose Oxyhemoglobin Carboxyhemoglobin Sodium 135 L Potassium 6.4 H* Chloride Carbon Dioxide 15 L BUN 26 H Creatinine 3.4 H D Glucose 165 H POC Glucose 209 H Hemoglobin A1c Calcium Phosphorus Magnesium AST ALT Alkaline Phosphatase Lactate Dehydrogenase C-Reactive Protein Total Protein Albumin Triglycerides Arterial Blood Glucose Arterial Blood Ionized Calcium Urine Creatinine 40.1 H Random Vancomycin Coronavirus (PCR) Crossmatch 03/14/21 03/14/21 03/14/21 18:46 22:23 23:52 WBC RBC Hgb Hct MCH MCHC RDW Plt Count Lymph % (Auto) [place] # (Auto) Eos # (Auto) Seg Neutrophils % Eosinophils % (Manual) Basophils % (Manual) Seg Neutrophils # Seg Neutrophils # Man Lymphocytes # (Manual) Eosinophils # (Manual) Basophils # (Manual) Percent Retic PT INR Fibrinogen D-Dimer ABG pH 7.270 L POC ABG pCO2 POC ABG pO2 63.4 L ABG pO2 ABG HCO3 ABG O2 Saturation ABG Base Excess ABG Hemoglobin ABG Oxyhemoglobin 90.2 L ABG Sodium 134.9 L ABG Potassium 5.3 H ABG Chloride ABG Glucose 134 H Oxyhemoglobin Carboxyhemoglobin Sodium 136 L Potassium 5.2 H Chloride Carbon Dioxide 20 L BUN 29 H Creatinine 3.6 H Glucose 236 H POC Glucose 128 H Hemoglobin A1c Calcium Phosphorus Magnesium AST ALT Alkaline Phosphatase Lactate Dehydrogenase C-Reactive Protein Total Protein Albumin 3.2 L Triglycerides Arterial Blood Glucose 134 H Arterial Blood Ionized Calcium Urine Creatinine Random Vancomycin Coronavirus (PCR) Crossmatch 03/14/21 03/15/21 03/15/21 Unknown 05:00 05:09 WBC 22.5 H RBC Hgb Hct MCH 27 L MCHC RDW 17.6 H Plt Count Lymph % (Auto) [place] # (Auto) Eos # (Auto) Seg Neutrophils % Eosinophils % (Manual) Basophils % (Manual) Seg Neutrophils # Seg Neutrophils # Man Lymphocytes # (Manual) Eosinophils # (Manual) Basophils # (Manual) Percent Retic PT INR Fibrinogen D-Dimer ABG pH POC ABG pCO2 POC ABG pO2 ABG pO2 ABG HCO3 ABG O2 Saturation ABG Base Excess ABG Hemoglobin ABG Oxyhemoglobin ABG Sodium ABG Potassium ABG Chloride ABG Glucose Oxyhemoglobin Carboxyhemoglobin Sodium Potassium Chloride Carbon Dioxide BUN Creatinine Glucose POC Glucose 116 H Hemoglobin A1c Calcium Phosphorus Magnesium AST ALT Alkaline Phosphatase Lactate Dehydrogenase C-Reactive Protein Total Protein Albumin Triglycerides Arterial Blood Glucose Arterial Blood Ionized Calcium Urine Creatinine Random Vancomycin Coronavirus (PCR) Positive A Crossmatch 03/15/21 03/15/21 03/15/21 05:09 05:09 05:09 WBC RBC Hgb Hct MCH MCHC RDW Plt Count Lymph % (Auto) [place] # (Auto) Eos # (Auto) Seg Neutrophils % Eosinophils % (Manual) Basophils % (Manual) Seg Neutrophils # Seg Neutrophils # Man Lymphocytes # (Manual) Eosinophils # (Manual) Basophils # (Manual) Percent Retic PT INR Fibrinogen D-Dimer ABG pH POC ABG pCO2 POC ABG pO2 ABG pO2 ABG HCO3 ABG O2 Saturation ABG Base Excess ABG Hemoglobin ABG Oxyhemoglobin ABG Sodium ABG Potassium ABG Chloride ABG Glucose Oxyhemoglobin Carboxyhemoglobin Sodium 136 L Potassium 6.5 H* D Chloride Carbon Dioxide 17 L BUN 41 H Creatinine 5.3 H Glucose 128 H POC Glucose Hemoglobin A1c 6.3 H Calcium Phosphorus Magnesium AST ALT Alkaline Phosphatase Lactate Dehydrogenase C-Reactive Protein 12.10 H Total Protein Albumin 3.1 L Triglycerides Arterial Blood Glucose Arterial Blood Ionized Calcium Urine Creatinine Random Vancomycin Coronavirus (PCR) Crossmatch 03/15/21 03/15/21 03/15/21 10:00 21:50 23:39 WBC RBC Hgb Hct MCH MCHC RDW Plt Count Lymph % (Auto) [place] # (Auto) Eos # (Auto) Seg Neutrophils % Eosinophils % (Manual) Basophils % (Manual) Seg Neutrophils # Seg Neutrophils # Man Lymphocytes # (Manual) Eosinophils # (Manual) Basophils # (Manual) Percent Retic PT INR Fibrinogen D-Dimer ABG pH 7.098 L POC ABG pCO2 72.7 H POC ABG pO2 ABG pO2 162.5 H ABG HCO3 ABG O2 Saturation ABG Base Excess ABG Hemoglobin 10.1 L ABG Oxyhemoglobin ABG Sodium ABG Potassium 5.7 H ABG Chloride ABG Glucose Oxyhemoglobin Carboxyhemoglobin 0.4 L Sodium Potassium Chloride Carbon Dioxide BUN Creatinine Glucose POC Glucose 156 H Hemoglobin A1c Calcium Phosphorus Magnesium AST ALT Alkaline Phosphatase Lactate Dehydrogenase C-Reactive Protein Total Protein Albumin Triglycerides Arterial Blood Glucose Arterial Blood Ionized Calcium Urine Creatinine Random Vancomycin Coronavirus (PCR) Crossmatch 03/16/21 03/16/21 03/16/21 05:00 05:30 05:30 WBC 16.7 H RBC 3.59 L Hgb 9.6 L Hct 30.1 L MCH 27 L MCHC RDW 17.5 H Plt Count Lymph % (Auto) [place] # (Auto) Eos # (Auto) Seg Neutrophils % Eosinophils % (Manual) Basophils % (Manual) Seg Neutrophils # Seg Neutrophils # Man Lymphocytes # (Manual) Eosinophils # (Manual) Basophils # (Manual) Percent Retic PT INR Fibrinogen D-Dimer ABG pH POC ABG pCO2 POC ABG pO2 ABG pO2 ABG HCO3 ABG O2 Saturation ABG Base Excess ABG Hemoglobin ABG Oxyhemoglobin ABG Sodium ABG Potassium ABG Chloride ABG Glucose Oxyhemoglobin Carboxyhemoglobin Sodium Potassium Chloride Carbon Dioxide BUN 46 H Creatinine 6.2 H Glucose 131 H POC Glucose Hemoglobin A1c Calcium Phosphorus 6.00 H D Magnesium AST ALT Alkaline Phosphatase Lactate Dehydrogenase 318 H C-Reactive Protein 18.60 H Total Protein Albumin 3.0 L Triglycerides Arterial Blood Glucose Arterial Blood Ionized Calcium Urine Creatinine Random Vancomycin Coronavirus (PCR) Crossmatch 03/16/21 03/16/21 03/16/21 05:51 06:37 08:58 WBC RBC Hgb Hct MCH MCHC RDW Plt Count Lymph % (Auto) [place] # (Auto) Eos # (Auto) Seg Neutrophils % Eosinophils % (Manual) Basophils % (Manual) Seg Neutrophils # Seg Neutrophils # Man Lymphocytes # (Manual) Eosinophils # (Manual) Basophils # (Manual) Percent Retic PT INR Fibrinogen D-Dimer 3041.12 H ABG pH POC ABG pCO2 POC ABG pO2 ABG pO2 141.5 H ABG HCO3 ABG O2 Saturation ABG Base Excess ABG Hemoglobin 9.7 L ABG Oxyhemoglobin ABG Sodium ABG Potassium ABG Chloride ABG Glucose Oxyhemoglobin Carboxyhemoglobin Sodium Potassium Chloride Carbon Dioxide BUN Creatinine Glucose POC Glucose 126 H Hemoglobin A1c Calcium Phosphorus Magnesium AST ALT Alkaline Phosphatase Lactate Dehydrogenase C-Reactive Protein Total Protein Albumin Triglycerides Arterial Blood Glucose Arterial Blood Ionized Calcium Urine Creatinine Random Vancomycin Coronavirus (PCR) Crossmatch 03/16/21 03/16/21 03/16/21 12:11 16:51 21:00 WBC RBC Hgb Hct MCH MCHC RDW Plt Count Lymph % (Auto) [place] # (Auto) Eos # (Auto) Seg Neutrophils % Eosinophils % (Manual) Basophils % (Manual) Seg Neutrophils # Seg Neutrophils # Man Lymphocytes # (Manual) Eosinophils # (Manual) Basophils # (Manual) Percent Retic PT INR Fibrinogen D-Dimer ABG pH 7.239 L POC ABG pCO2 61.5 H POC ABG pO2 80.8 L ABG pO2 ABG HCO3 ABG O2 Saturation ABG Base Excess ABG Hemoglobin 11.4 L ABG Oxyhemoglobin 93.5 L ABG Sodium ABG Potassium 5.4 H ABG Chloride ABG Glucose 137 H Oxyhemoglobin Carboxyhemoglobin 0.2 L Sodium Potassium Chloride Carbon Dioxide BUN Creatinine Glucose POC Glucose 156 H 133 H Hemoglobin A1c Calcium Phosphorus Magnesium AST ALT Alkaline Phosphatase Lactate Dehydrogenase C-Reactive Protein Total Protein Albumin Triglycerides Arterial Blood Glucose 137 H Arterial Blood Ionized Calcium Urine Creatinine Random Vancomycin Coronavirus (PCR) Crossmatch 03/16/21 03/17/21 03/17/21 23:42 05:23 05:23 WBC 18.4 H RBC Hgb Hct MCH 27 L MCHC RDW 17.4 H Plt Count Lymph % (Auto) [place] # (Auto) Eos # (Auto) Seg Neutrophils % Eosinophils % (Manual) Basophils % (Manual) Seg Neutrophils # Seg Neutrophils # Man Lymphocytes # (Manual) Eosinophils # (Manual) Basophils # (Manual) Percent Retic PT INR Fibrinogen D-Dimer ABG pH POC ABG pCO2 POC ABG pO2 ABG pO2 ABG HCO3 ABG O2 Saturation ABG Base Excess ABG Hemoglobin ABG Oxyhemoglobin ABG Sodium ABG Potassium ABG Chloride ABG Glucose Oxyhemoglobin Carboxyhemoglobin Sodium Potassium 5.2 H Chloride Carbon Dioxide 21 L BUN 79 H Creatinine 8.6 H Glucose 124 H POC Glucose 133 H Hemoglobin A1c Calcium Phosphorus Magnesium AST ALT Alkaline Phosphatase Lactate Dehydrogenase C-Reactive Protein Total Protein Albumin 3.2 L Triglycerides 285 H Arterial Blood Glucose Arterial Blood Ionized Calcium Urine Creatinine Random Vancomycin Coronavirus (PCR) Crossmatch 03/17/21 03/17/21 03/17/21 05:23 10:48 12:20 WBC RBC Hgb Hct MCH MCHC RDW Plt Count Lymph % (Auto) [place] # (Auto) Eos # (Auto) Seg Neutrophils % Eosinophils % (Manual) Basophils % (Manual) Seg Neutrophils # Seg Neutrophils # Man Lymphocytes # (Manual) Eosinophils # (Manual) Basophils # (Manual) Percent Retic PT INR Fibrinogen D-Dimer ABG pH 7.294 L POC ABG pCO2 POC ABG pO2 ABG pO2 90.3 H ABG HCO3 ABG O2 Saturation ABG Base Excess ABG Hemoglobin 9.9 L ABG Oxyhemoglobin ABG Sodium ABG Potassium ABG Chloride ABG Glucose Oxyhemoglobin Carboxyhemoglobin Sodium Potassium 5.2 H Chloride Carbon Dioxide 21 L BUN 79 H Creatinine 8.4 H Glucose 125 H POC Glucose 171 H Hemoglobin A1c Calcium Phosphorus 9.90 H D Magnesium 2.40 H AST ALT Alkaline Phosphatase Lactate Dehydrogenase C-Reactive Protein Total Protein Albumin Triglycerides Arterial Blood Glucose Arterial Blood Ionized Calcium Urine Creatinine Random Vancomycin Coronavirus (PCR) Crossmatch 03/17/21 03/17/21 03/18/21 17:24 21:00 04:30 WBC RBC Hgb Hct MCH MCHC RDW Plt Count Lymph % (Auto) [place] # (Auto) Eos # (Auto) Seg Neutrophils % Eosinophils % (Manual) Basophils % (Manual) Seg Neutrophils # Seg Neutrophils # Man Lymphocytes # (Manual) Eosinophils # (Manual) Basophils # (Manual) Percent Retic PT INR Fibrinogen D-Dimer 9953.09 H ABG pH 7.310 L POC ABG pCO2 54.5 H POC ABG pO2 62.3 L ABG pO2 ABG HCO3 ABG O2 Saturation ABG Base Excess ABG Hemoglobin 10.2 L ABG Oxyhemoglobin 88.6 L ABG Sodium ABG Potassium 4.7 H ABG Chloride ABG Glucose 99 H Oxyhemoglobin Carboxyhemoglobin 0.3 L Sodium Potassium Chloride Carbon Dioxide BUN Creatinine Glucose POC Glucose 121 H Hemoglobin A1c Calcium Phosphorus Magnesium AST ALT Alkaline Phosphatase Lactate Dehydrogenase C-Reactive Protein Total Protein Albumin Triglycerides Arterial Blood Glucose 99 H Arterial Blood Ionized Calcium 4.3 L Urine Creatinine Random Vancomycin Coronavirus (PCR) Crossmatch 03/18/21 03/18/21 03/18/21 04:30 04:30 11:34 WBC 12.8 H RBC 3.49 L Hgb 9.4 L Hct 29.3 L MCH 27 L MCHC RDW 17.4 H Plt Count Lymph % (Auto) [place] # (Auto) Eos # (Auto) Seg Neutrophils % Eosinophils % (Manual) Basophils % (Manual) Seg Neutrophils # Seg Neutrophils # Man Lymphocytes # (Manual) Eosinophils # (Manual) Basophils # (Manual) Percent Retic PT INR Fibrinogen D-Dimer ABG pH POC ABG pCO2 POC ABG pO2 ABG pO2 ABG HCO3 ABG O2 Saturation ABG Base Excess ABG Hemoglobin ABG Oxyhemoglobin ABG Sodium ABG Potassium ABG Chloride ABG Glucose Oxyhemoglobin Carboxyhemoglobin Sodium Potassium Chloride Carbon Dioxide BUN 69 H Creatinine 7.3 H Glucose POC Glucose 114 H Hemoglobin A1c Calcium 8.2 L Phosphorus 7.60 H D Magnesium AST ALT Alkaline Phosphatase Lactate Dehydrogenase 477 H C-Reactive Protein 6.90 H Total Protein Albumin Triglycerides Arterial Blood Glucose Arterial Blood Ionized Calcium Urine Creatinine Random Vancomycin Coronavirus (PCR) Crossmatch 03/18/21 03/19/21 03/19/21 21:44 04:13 04:13 WBC 13.7 H RBC 3.32 L Hgb 9.0 L Hct 28.1 L MCH 27 L MCHC RDW 16.9 H Plt Count Lymph % (Auto) [place] # (Auto) Eos # (Auto) Seg Neutrophils % Eosinophils % (Manual) Basophils % (Manual) Seg Neutrophils # Seg Neutrophils # Man Lymphocytes # (Manual) Eosinophils # (Manual) Basophils # (Manual) Percent Retic PT INR Fibrinogen D-Dimer ABG pH 7.290 L POC ABG pCO2 POC ABG pO2 ABG pO2 119.7 H ABG HCO3 28.0 H ABG O2 Saturation ABG Base Excess ABG Hemoglobin 9.6 L ABG Oxyhemoglobin ABG Sodium ABG Potassium ABG Chloride ABG Glucose Oxyhemoglobin Carboxyhemoglobin Sodium Potassium Chloride Carbon Dioxide BUN Creatinine Glucose POC Glucose Hemoglobin A1c Calcium Phosphorus Magnesium AST ALT Alkaline Phosphatase Lactate Dehydrogenase C-Reactive Protein Total Protein Albumin Triglycerides Arterial Blood Glucose Arterial Blood Ionized Calcium Urine Creatinine Random Vancomycin 43.5 H Coronavirus (PCR) Crossmatch 03/19/21 03/19/21 03/19/21 04:13 05:59 11:40 WBC RBC Hgb Hct MCH MCHC RDW Plt Count Lymph % (Auto) [place] # (Auto) Eos # (Auto) Seg Neutrophils % Eosinophils % (Manual) Basophils % (Manual) Seg Neutrophils # Seg Neutrophils # Man Lymphocytes # (Manual) Eosinophils # (Manual) Basophils # (Manual) Percent Retic PT INR Fibrinogen D-Dimer ABG pH POC ABG pCO2 POC ABG pO2 ABG pO2 ABG HCO3 ABG O2 Saturation ABG Base Excess ABG Hemoglobin ABG Oxyhemoglobin ABG Sodium ABG Potassium ABG Chloride ABG Glucose Oxyhemoglobin Carboxyhemoglobin Sodium Potassium Chloride Carbon Dioxide BUN 55 H Creatinine 7.0 H Glucose POC Glucose 116 H 145 H Hemoglobin A1c Calcium 8.1 L Phosphorus 7.90 H Magnesium AST ALT Alkaline Phosphatase Lactate Dehydrogenase C-Reactive Protein Total Protein Albumin Triglycerides Arterial Blood Glucose Arterial Blood Ionized Calcium Urine Creatinine Random Vancomycin Coronavirus (PCR) Crossmatch 03/19/21 03/19/21 03/20/21 17:01 23:41 04:00 WBC 15.6 H RBC 3.55 L Hgb 9.6 L Hct MCH 27 L MCHC RDW 16.8 H Plt Count 139 L Lymph % (Auto) [place] # (Auto) Eos # (Auto) Seg Neutrophils % Eosinophils % (Manual) Basophils % (Manual) Seg Neutrophils # Seg Neutrophils # Man Lymphocytes # (Manual) Eosinophils # (Manual) Basophils # (Manual) Percent Retic PT INR Fibrinogen D-Dimer ABG pH POC ABG pCO2 POC ABG pO2 ABG pO2 ABG HCO3 ABG O2 Saturation ABG Base Excess ABG Hemoglobin ABG Oxyhemoglobin ABG Sodium ABG Potassium ABG Chloride ABG Glucose Oxyhemoglobin Carboxyhemoglobin Sodium Potassium Chloride Carbon Dioxide BUN Creatinine Glucose POC Glucose 111 H 118 H Hemoglobin A1c Calcium Phosphorus Magnesium AST ALT Alkaline Phosphatase Lactate Dehydrogenase C-Reactive Protein Total Protein Albumin Triglycerides Arterial Blood Glucose Arterial Blood Ionized Calcium Urine Creatinine Random Vancomycin Coronavirus (PCR) Crossmatch 03/20/21 03/20/21 03/20/21 04:00 04:00 04:37 WBC RBC Hgb Hct MCH MCHC RDW Plt Count Lymph % (Auto) [place] # (Auto) Eos # (Auto) Seg Neutrophils % Eosinophils % (Manual) Basophils % (Manual) Seg Neutrophils # Seg Neutrophils # Man Lymphocytes # (Manual) Eosinophils # (Manual) Basophils # (Manual) Percent Retic PT INR Fibrinogen D-Dimer > 30497 H ABG pH 7.306 L POC ABG pCO2 POC ABG pO2 ABG pO2 ABG HCO3 27.9 H ABG O2 Saturation ABG Base Excess ABG Hemoglobin 5.2 L ABG Oxyhemoglobin ABG Sodium ABG Potassium ABG Chloride ABG Glucose Oxyhemoglobin Carboxyhemoglobin Sodium Potassium 5.2 H Chloride 97.6 L Carbon Dioxide BUN 52 H Creatinine 6.2 H Glucose 104 H POC Glucose Hemoglobin A1c Calcium Phosphorus 8.60 H Magnesium AST ALT Alkaline Phosphatase Lactate Dehydrogenase C-Reactive Protein 6.90 H Total Protein Albumin Triglycerides Arterial Blood Glucose Arterial Blood Ionized Calcium Urine Creatinine Random Vancomycin Coronavirus (PCR) Crossmatch 03/20/21 03/20/21 03/20/21 13:50 17:46 17:56 WBC RBC Hgb Hct MCH MCHC RDW Plt Count Lymph % (Auto) [place] # (Auto) Eos # (Auto) Seg Neutrophils % Eosinophils % (Manual) Basophils % (Manual) Seg Neutrophils # Seg Neutrophils # Man Lymphocytes # (Manual) Eosinophils # (Manual) Basophils # (Manual) Percent Retic PT INR Fibrinogen D-Dimer ABG pH POC ABG pCO2 POC ABG pO2 ABG pO2 ABG HCO3 ABG O2 Saturation ABG Base Excess ABG Hemoglobin ABG Oxyhemoglobin ABG Sodium ABG Potassium ABG Chloride ABG Glucose Oxyhemoglobin Carboxyhemoglobin Sodium Potassium Chloride Carbon Dioxide BUN 63 H 43 H Creatinine Glucose POC Glucose 145 H Hemoglobin A1c Calcium Phosphorus Magnesium AST ALT Alkaline Phosphatase Lactate Dehydrogenase C-Reactive Protein Total Protein Albumin Triglycerides Arterial Blood Glucose Arterial Blood Ionized Calcium Urine Creatinine Random Vancomycin Coronavirus (PCR) Crossmatch 03/20/21 03/21/21 03/21/21 23:18 06:58 06:58 WBC 14.4 H RBC 3.41 L Hgb 9.5 L Hct 28.6 L MCH MCHC RDW 17.4 H Plt Count 107 L Lymph % (Auto) [place] # (Auto) Eos # (Auto) Seg Neutrophils % Eosinophils % (Manual) Basophils % (Manual) Seg Neutrophils # Seg Neutrophils # Man Lymphocytes # (Manual) Eosinophils # (Manual) Basophils # (Manual) Percent Retic PT INR Fibrinogen D-Dimer ABG pH POC ABG pCO2 POC ABG pO2 ABG pO2 ABG HCO3 ABG O2 Saturation ABG Base Excess ABG Hemoglobin ABG Oxyhemoglobin ABG Sodium ABG Potassium ABG Chloride ABG Glucose Oxyhemoglobin Carboxyhemoglobin Sodium Potassium Chloride Carbon Dioxide BUN 60 H Creatinine 7.7 H Glucose POC Glucose 106 H Hemoglobin A1c Calcium Phosphorus Magnesium AST ALT Alkaline Phosphatase Lactate Dehydrogenase C-Reactive Protein Total Protein Albumin Triglycerides Arterial Blood Glucose Arterial Blood Ionized Calcium Urine Creatinine Random Vancomycin Coronavirus (PCR) Crossmatch 03/21/21 03/21/21 03/21/21 11:11 18:04 Unknown WBC RBC Hgb Hct MCH MCHC RDW Plt Count Lymph % (Auto) [place] # (Auto) Eos # (Auto) Seg Neutrophils % Eosinophils % (Manual) Basophils % (Manual) Seg Neutrophils # Seg Neutrophils # Man Lymphocytes # (Manual) Eosinophils # (Manual) Basophils # (Manual) Percent Retic PT INR Fibrinogen D-Dimer ABG pH 7.270 L POC ABG pCO2 58.7 H POC ABG pO2 76.9 L ABG pO2 ABG HCO3 ABG O2 Saturation ABG Base Excess ABG Hemoglobin 9.9 L ABG Oxyhemoglobin 92.4 L ABG Sodium 135.8 L ABG Potassium 4.6 H ABG Chloride ABG Glucose Oxyhemoglobin Carboxyhemoglobin 0.1 L Sodium Potassium Chloride Carbon Dioxide BUN Creatinine Glucose POC Glucose 109 H 141 H Hemoglobin A1c Calcium Phosphorus Magnesium AST ALT Alkaline Phosphatase Lactate Dehydrogenase C-Reactive Protein Total Protein Albumin Triglycerides Arterial Blood Glucose Arterial Blood Ionized Calcium 4.5 L Urine Creatinine Random Vancomycin Coronavirus (PCR) Crossmatch 03/22/21 03/22/21 03/22/21 03:09 07:10 10:00 WBC RBC Hgb Hct MCH MCHC RDW Plt Count Lymph % (Auto) [place] # (Auto) Eos # (Auto) Seg Neutrophils % Eosinophils % (Manual) Basophils % (Manual) Seg Neutrophils # Seg Neutrophils # Man Lymphocytes # (Manual) Eosinophils # (Manual) Basophils # (Manual) Percent Retic PT INR Fibrinogen D-Dimer ABG pH 7.206 L 7.245 L POC ABG pCO2 55.6 H POC ABG pO2 ABG pO2 90.6 H ABG HCO3 ABG O2 Saturation ABG Base Excess -4.4 L ABG Hemoglobin 9.0 L 8.4 L ABG Oxyhemoglobin ABG Sodium 123.4 L ABG Potassium 5.6 H ABG Chloride ABG Glucose 106 H Oxyhemoglobin 94.5 L Carboxyhemoglobin 0.1 L Sodium Potassium 5.4 H Chloride 96.8 L Carbon Dioxide BUN 89 H Creatinine 8.7 H Glucose 131 H POC Glucose Hemoglobin A1c Calcium Phosphorus Magnesium AST ALT Alkaline Phosphatase Lactate Dehydrogenase C-Reactive Protein 9.40 H Total Protein Albumin Triglycerides Arterial Blood Glucose 106 H Arterial Blood Ionized Calcium Urine Creatinine Random Vancomycin Coronavirus (PCR) Crossmatch 03/22/21 03/22/21 03/22/21 10:00 12:37 13:19 WBC RBC 3.05 L Hgb 8.4 L Hct 25.5 L MCH MCHC RDW 17.5 H Plt Count 108 L Lymph % (Auto) [place] # (Auto) Eos # (Auto) Seg Neutrophils % Eosinophils % (Manual) Basophils % (Manual) Seg Neutrophils # Seg Neutrophils # Man Lymphocytes # (Manual) Eosinophils # (Manual) Basophils # (Manual) Percent Retic PT INR Fibrinogen D-Dimer ABG pH POC ABG pCO2 POC ABG pO2 ABG pO2 ABG HCO3 ABG O2 Saturation ABG Base Excess ABG Hemoglobin ABG Oxyhemoglobin ABG Sodium ABG Potassium ABG Chloride ABG Glucose Oxyhemoglobin Carboxyhemoglobin Sodium Potassium Chloride Carbon Dioxide BUN Creatinine 8.7 H Glucose POC Glucose 140 H Hemoglobin A1c Calcium Phosphorus Magnesium AST ALT Alkaline Phosphatase Lactate Dehydrogenase C-Reactive Protein Total Protein Albumin Triglycerides Arterial Blood Glucose Arterial Blood Ionized Calcium Urine Creatinine Random Vancomycin Coronavirus (PCR) Crossmatch 03/22/21 03/22/21 03/22/21 13:40 17:14 18:21 WBC RBC Hgb Hct MCH MCHC RDW Plt Count Lymph % (Auto) [place] # (Auto) Eos # (Auto) Seg Neutrophils % Eosinophils % (Manual) Basophils % (Manual) Seg Neutrophils # Seg Neutrophils # Man Lymphocytes # (Manual) Eosinophils # (Manual) Basophils # (Manual) Percent Retic PT 15.8 H INR 1.14 H Fibrinogen D-Dimer > 64127 H ABG pH POC ABG pCO2 POC ABG pO2 ABG pO2 ABG HCO3 ABG O2 Saturation ABG Base Excess ABG Hemoglobin ABG Oxyhemoglobin ABG Sodium ABG Potassium ABG Chloride ABG Glucose Oxyhemoglobin Carboxyhemoglobin Sodium Potassium Chloride Carbon Dioxide BUN Creatinine Glucose POC Glucose 117 H 112 H Hemoglobin A1c Calcium Phosphorus Magnesium AST ALT Alkaline Phosphatase Lactate Dehydrogenase C-Reactive Protein Total Protein Albumin Triglycerides Arterial Blood Glucose Arterial Blood Ionized Calcium Urine Creatinine Random Vancomycin Coronavirus (PCR) Crossmatch 03/22/21 03/22/21 03/23/21 21:25 22:57 04:30 WBC RBC Hgb Hct MCH MCHC RDW Plt Count Lymph % (Auto) [place] # (Auto) Eos # (Auto) Seg Neutrophils % Eosinophils % (Manual) Basophils % (Manual) Seg Neutrophils # Seg Neutrophils # Man Lymphocytes # (Manual) Eosinophils # (Manual) Basophils # (Manual) Percent Retic PT INR Fibrinogen D-Dimer ABG pH 7.188 L* POC ABG pCO2 POC ABG pO2 ABG pO2 97.9 H ABG HCO3 ABG O2 Saturation ABG Base Excess -3.7 L ABG Hemoglobin 9.2 L ABG Oxyhemoglobin ABG Sodium ABG Potassium ABG Chloride ABG Glucose Oxyhemoglobin 94.4 L Carboxyhemoglobin Sodium Potassium Chloride Carbon Dioxide BUN Creatinine Glucose POC Glucose 106 H Hemoglobin A1c Calcium Phosphorus Magnesium AST ALT Alkaline Phosphatase Lactate Dehydrogenase C-Reactive Protein Total Protein Albumin Triglycerides 381 H Arterial Blood Glucose Arterial Blood Ionized Calcium Urine Creatinine Random Vancomycin Coronavirus (PCR) Crossmatch 03/23/21 03/23/21 03/23/21 04:30 04:30 05:37 WBC 20.1 H RBC 3.17 L Hgb 8.6 L Hct 27.2 L MCH 27 L MCHC RDW 17.4 H Plt Count 118 L Lymph % (Auto) [place] # (Auto) Eos # (Auto) Seg Neutrophils % Eosinophils % (Manual) Basophils % (Manual) Seg Neutrophils # Seg Neutrophils # Man Lymphocytes # (Manual) Eosinophils # (Manual) Basophils # (Manual) Percent Retic PT INR Fibrinogen D-Dimer ABG pH POC ABG pCO2 POC ABG pO2 ABG pO2 ABG HCO3 ABG O2 Saturation ABG Base Excess ABG Hemoglobin ABG Oxyhemoglobin ABG Sodium ABG Potassium ABG Chloride ABG Glucose Oxyhemoglobin Carboxyhemoglobin Sodium Potassium 5.2 H Chloride 97.1 L Carbon Dioxide 21 L BUN 82 H Creatinine 9.1 H Glucose 109 H POC Glucose 130 H Hemoglobin A1c Calcium Phosphorus 10.80 H Magnesium 3.50 H AST ALT Alkaline Phosphatase Lactate Dehydrogenase C-Reactive Protein Total Protein Albumin Triglycerides Arterial Blood Glucose Arterial Blood Ionized Calcium Urine Creatinine Random Vancomycin Coronavirus (PCR) Crossmatch 03/23/21 03/23/21 03/23/21 08:44 11:30 16:09 WBC RBC Hgb Hct MCH MCHC RDW Plt Count Lymph % (Auto) [place] # (Auto) Eos # (Auto) Seg Neutrophils % Eosinophils % (Manual) Basophils % (Manual) Seg Neutrophils # Seg Neutrophils # Man Lymphocytes # (Manual) Eosinophils # (Manual) Basophils # (Manual) Percent Retic PT INR Fibrinogen D-Dimer ABG pH 7.190 L POC ABG pCO2 57.9 H POC ABG pO2 79.2 L ABG pO2 ABG HCO3 ABG O2 Saturation ABG Base Excess ABG Hemoglobin 11.8 L ABG Oxyhemoglobin 92.3 L ABG Sodium 131.0 L ABG Potassium 5.0 H ABG Chloride ABG Glucose 122 H Oxyhemoglobin Carboxyhemoglobin 0.4 L Sodium Potassium Chloride Carbon Dioxide BUN Creatinine Glucose POC Glucose 129 H 148 H Hemoglobin A1c Calcium Phosphorus Magnesium AST ALT Alkaline Phosphatase Lactate Dehydrogenase C-Reactive Protein Total Protein Albumin Triglycerides Arterial Blood Glucose 122 H Arterial Blood Ionized Calcium 4.4 L Urine Creatinine Random Vancomycin Coronavirus (PCR) Crossmatch 03/23/21 03/24/21 03/24/21 21:00 03:35 04:00 WBC 17.8 H RBC 2.96 L Hgb 8.1 L Hct 25.0 L MCH 27 L MCHC RDW 17.7 H Plt Count 124 L Lymph % (Auto) [place] # (Auto) Eos # (Auto) Seg Neutrophils % Eosinophils % (Manual) Basophils % (Manual) Seg Neutrophils # Seg Neutrophils # Man Lymphocytes # (Manual) Eosinophils # (Manual) Basophils # (Manual) Percent Retic PT INR Fibrinogen D-Dimer ABG pH 7.223 L POC ABG pCO2 50.3 H POC ABG pO2 114.4 H ABG pO2 ABG HCO3 ABG O2 Saturation ABG Base Excess ABG Hemoglobin 8.8 L ABG Oxyhemoglobin ABG Sodium 130.4 L ABG Potassium 5.1 H ABG Chloride ABG Glucose 126 H Oxyhemoglobin Carboxyhemoglobin 0.2 L Sodium Potassium Chloride Carbon Dioxide BUN Creatinine Glucose POC Glucose 148 H Hemoglobin A1c Calcium Phosphorus Magnesium AST ALT Alkaline Phosphatase Lactate Dehydrogenase C-Reactive Protein Total Protein Albumin Triglycerides Arterial Blood Glucose 126 H Arterial Blood Ionized Calcium 4.4 L Urine Creatinine Random Vancomycin Coronavirus (PCR) Crossmatch 03/24/21 03/24/21 03/24/21 04:00 06:49 12:29 WBC RBC Hgb Hct MCH MCHC RDW Plt Count Lymph % (Auto) [place] # (Auto) Eos # (Auto) Seg Neutrophils % Eosinophils % (Manual) Basophils % (Manual) Seg Neutrophils # Seg Neutrophils # Man Lymphocytes # (Manual) Eosinophils # (Manual) Basophils # (Manual) Percent Retic PT INR Fibrinogen D-Dimer ABG pH POC ABG pCO2 POC ABG pO2 ABG pO2 ABG HCO3 ABG O2 Saturation ABG Base Excess ABG Hemoglobin ABG Oxyhemoglobin ABG Sodium ABG Potassium ABG Chloride ABG Glucose Oxyhemoglobin Carboxyhemoglobin Sodium Potassium Chloride 95.6 L Carbon Dioxide 20 L BUN 108 H Creatinine 10.8 H Glucose 155 H POC Glucose 136 H 142 H Hemoglobin A1c Calcium Phosphorus Magnesium AST ALT Alkaline Phosphatase Lactate Dehydrogenase C-Reactive Protein Total Protein Albumin Triglycerides Arterial Blood Glucose Arterial Blood Ionized Calcium Urine Creatinine Random Vancomycin Coronavirus (PCR) Crossmatch 03/24/21 03/25/21 03/25/21 21:35 00:15 05:51 WBC RBC Hgb Hct MCH MCHC RDW Plt Count Lymph % (Auto) [place] # (Auto) Eos # (Auto) Seg Neutrophils % Eosinophils % (Manual) Basophils % (Manual) Seg Neutrophils # Seg Neutrophils # Man Lymphocytes # (Manual) Eosinophils # (Manual) Basophils # (Manual) Percent Retic PT INR Fibrinogen D-Dimer ABG pH 7.241 L POC ABG pCO2 POC ABG pO2 ABG pO2 72.4 L ABG HCO3 ABG O2 Saturation 90.3 L ABG Base Excess ABG Hemoglobin 7.9 L ABG Oxyhemoglobin ABG Sodium ABG Potassium ABG Chloride ABG Glucose Oxyhemoglobin 88.4 L Carboxyhemoglobin Sodium Potassium Chloride Carbon Dioxide BUN Creatinine Glucose POC Glucose 110 H 121 H Hemoglobin A1c Calcium Phosphorus Magnesium AST ALT Alkaline Phosphatase Lactate Dehydrogenase C-Reactive Protein Total Protein Albumin Triglycerides Arterial Blood Glucose Arterial Blood Ionized Calcium Urine Creatinine Random Vancomycin Coronavirus (PCR) Crossmatch 03/25/21 03/25/21 03/25/21 05:54 05:54 12:21 WBC 12.4 H RBC 2.52 L Hgb 6.9 L Hct 21.1 L MCH MCHC RDW 17.4 H Plt Count 102 L Lymph % (Auto) [place] # (Auto) Eos # (Auto) Seg Neutrophils % Eosinophils % (Manual) Basophils % (Manual) Seg Neutrophils # Seg Neutrophils # Man Lymphocytes # (Manual) Eosinophils # (Manual) Basophils # (Manual) Percent Retic PT INR Fibrinogen D-Dimer ABG pH POC ABG pCO2 POC ABG pO2 ABG pO2 ABG HCO3 ABG O2 Saturation ABG Base Excess ABG Hemoglobin ABG Oxyhemoglobin ABG Sodium ABG Potassium ABG Chloride ABG Glucose Oxyhemoglobin Carboxyhemoglobin Sodium Potassium Chloride 96.7 L Carbon Dioxide BUN 81 H Creatinine 8.1 H Glucose 116 H POC Glucose 138 H Hemoglobin A1c Calcium 8.2 L Phosphorus Magnesium AST ALT Alkaline Phosphatase Lactate Dehydrogenase C-Reactive Protein Total Protein Albumin Triglycerides Arterial Blood Glucose Arterial Blood Ionized Calcium Urine Creatinine Random Vancomycin Coronavirus (PCR) Crossmatch 03/25/21 03/25/21 03/25/21 13:45 17:32 21:30 WBC RBC Hgb Hct MCH MCHC RDW Plt Count Lymph % (Auto) [place] # (Auto) Eos # (Auto) Seg Neutrophils % Eosinophils % (Manual) Basophils % (Manual) Seg Neutrophils # Seg Neutrophils # Man Lymphocytes # (Manual) Eosinophils # (Manual) Basophils # (Manual) Percent Retic PT INR Fibrinogen D-Dimer ABG pH POC ABG pCO2 POC ABG pO2 ABG pO2 70.2 L ABG HCO3 ABG O2 Saturation ABG Base Excess ABG Hemoglobin 6.8 L ABG Oxyhemoglobin ABG Sodium ABG Potassium ABG Chloride ABG Glucose Oxyhemoglobin 94.5 L Carboxyhemoglobin Sodium Potassium Chloride Carbon Dioxide BUN Creatinine Glucose POC Glucose 110 H Hemoglobin A1c Calcium Phosphorus Magnesium AST ALT Alkaline Phosphatase Lactate Dehydrogenase C-Reactive Protein Total Protein Albumin Triglycerides Arterial Blood Glucose Arterial Blood Ionized Calcium Urine Creatinine Random Vancomycin Coronavirus (PCR) Crossmatch See Detail 03/25/21 03/25/21 03/26/21 23:29 Unknown 05:15 WBC 12.4 H 14.0 H RBC 2.49 L 2.83 L Hgb 6.8 L 7.6 L Hct 20.9 L 23.6 L MCH 27 L 27 L MCHC RDW 18.0 H 17.1 H Plt Count 107 L 116 L Lymph % (Auto) [place] # (Auto) Eos # (Auto) Seg Neutrophils % Eosinophils % (Manual) Basophils % (Manual) Seg Neutrophils # Seg Neutrophils # Man Lymphocytes # (Manual) Eosinophils # (Manual) Basophils # (Manual) Percent Retic PT INR Fibrinogen D-Dimer ABG pH POC ABG pCO2 POC ABG pO2 ABG pO2 ABG HCO3 ABG O2 Saturation ABG Base Excess ABG Hemoglobin ABG Oxyhemoglobin ABG Sodium ABG Potassium ABG Chloride ABG Glucose Oxyhemoglobin Carboxyhemoglobin Sodium Potassium Chloride Carbon Dioxide BUN Creatinine Glucose POC Glucose 113 H Hemoglobin A1c Calcium Phosphorus Magnesium AST ALT Alkaline Phosphatase Lactate Dehydrogenase C-Reactive Protein Total Protein Albumin Triglycerides Arterial Blood Glucose Arterial Blood Ionized Calcium Urine Creatinine Random Vancomycin Coronavirus (PCR) Crossmatch 03/26/21 03/26/21 03/26/21 05:15 05:35 09:50 WBC RBC Hgb Hct MCH MCHC RDW Plt Count Lymph % (Auto) [place] # (Auto) Eos # (Auto) Seg Neutrophils % Eosinophils % (Manual) Basophils % (Manual) Seg Neutrophils # Seg Neutrophils # Man Lymphocytes # (Manual) Eosinophils # (Manual) Basophils # (Manual) Percent Retic PT INR Fibrinogen D-Dimer ABG pH POC ABG pCO2 POC ABG pO2 ABG pO2 79.9 L ABG HCO3 ABG O2 Saturation ABG Base Excess ABG Hemoglobin 7.1 L ABG Oxyhemoglobin ABG Sodium ABG Potassium ABG Chloride ABG Glucose Oxyhemoglobin 94.9 L Carboxyhemoglobin Sodium Potassium 3.4 L Chloride Carbon Dioxide BUN 70 H Creatinine 7.3 H Glucose 142 H POC Glucose 130 H Hemoglobin A1c Calcium 8.2 L Phosphorus Magnesium AST ALT Alkaline Phosphatase Lactate Dehydrogenase C-Reactive Protein Total Protein Albumin Triglycerides 254 H Arterial Blood Glucose Arterial Blood Ionized Calcium Urine Creatinine Random Vancomycin Coronavirus (PCR) Crossmatch 03/26/21 03/26/21 03/26/21 11:45 16:36 23:33 WBC RBC Hgb Hct MCH MCHC RDW Plt Count Lymph % (Auto) [place] # (Auto) Eos # (Auto) Seg Neutrophils % Eosinophils % (Manual) Basophils % (Manual) Seg Neutrophils # Seg Neutrophils # Man Lymphocytes # (Manual) Eosinophils # (Manual) Basophils # (Manual) Percent Retic PT INR Fibrinogen D-Dimer ABG pH POC ABG pCO2 POC ABG pO2 ABG pO2 ABG HCO3 ABG O2 Saturation ABG Base Excess ABG Hemoglobin ABG Oxyhemoglobin ABG Sodium ABG Potassium ABG Chloride ABG Glucose Oxyhemoglobin Carboxyhemoglobin Sodium Potassium Chloride Carbon Dioxide BUN Creatinine Glucose POC Glucose 123 H 121 H 120 H Hemoglobin A1c Calcium Phosphorus Magnesium AST ALT Alkaline Phosphatase Lactate Dehydrogenase C-Reactive Protein Total Protein Albumin Triglycerides Arterial Blood Glucose Arterial Blood Ionized Calcium Urine Creatinine Random Vancomycin Coronavirus (PCR) Crossmatch 03/27/21 03/27/21 03/27/21 03:20 04:14 08:20 WBC 13.2 H RBC 2.82 L Hgb 7.9 L Hct 23.5 L MCH MCHC RDW 17.3 H Plt Count 125 L Lymph % (Auto) [place] # (Auto) Eos # (Auto) Seg Neutrophils % Eosinophils % (Manual) Basophils % (Manual) Seg Neutrophils # Seg Neutrophils # Man Lymphocytes # (Manual) Eosinophils # (Manual) Basophils # (Manual) Percent Retic PT INR Fibrinogen D-Dimer ABG pH POC ABG pCO2 50.0 H POC ABG pO2 58.3 L ABG pO2 ABG HCO3 ABG O2 Saturation ABG Base Excess ABG Hemoglobin 11.3 L ABG Oxyhemoglobin 88.5 L ABG Sodium ABG Potassium ABG Chloride ABG Glucose 132 H Oxyhemoglobin Carboxyhemoglobin 0.2 L Sodium Potassium Chloride Carbon Dioxide BUN Creatinine Glucose POC Glucose 119 H Hemoglobin A1c Calcium Phosphorus Magnesium AST ALT Alkaline Phosphatase Lactate Dehydrogenase C-Reactive Protein Total Protein Albumin Triglycerides Arterial Blood Glucose 132 H Arterial Blood Ionized Calcium Urine Creatinine Random Vancomycin Coronavirus (PCR) Crossmatch 03/27/21 03/27/21 03/27/21 08:20 11:39 17:32 WBC RBC Hgb Hct MCH MCHC RDW Plt Count Lymph % (Auto) [place] # (Auto) Eos # (Auto) Seg Neutrophils % Eosinophils % (Manual) Basophils % (Manual) Seg Neutrophils # Seg Neutrophils # Man Lymphocytes # (Manual) Eosinophils # (Manual) Basophils # (Manual) Percent Retic PT INR Fibrinogen D-Dimer ABG pH POC ABG pCO2 POC ABG pO2 ABG pO2 ABG HCO3 ABG O2 Saturation ABG Base Excess ABG Hemoglobin ABG Oxyhemoglobin ABG Sodium ABG Potassium ABG Chloride ABG Glucose Oxyhemoglobin Carboxyhemoglobin Sodium Potassium Chloride Carbon Dioxide BUN 57 H Creatinine 6.8 H Glucose 131 H POC Glucose 121 H 126 H Hemoglobin A1c Calcium Phosphorus Magnesium AST ALT Alkaline Phosphatase Lactate Dehydrogenase C-Reactive Protein Total Protein Albumin Triglycerides Arterial Blood Glucose Arterial Blood Ionized Calcium Urine Creatinine Random Vancomycin Coronavirus (PCR) Crossmatch 03/28/21 03/28/21 03/28/21 00:10 04:45 05:25 WBC RBC Hgb Hct MCH MCHC RDW Plt Count Lymph % (Auto) [place] # (Auto) Eos # (Auto) Seg Neutrophils % Eosinophils % (Manual) Basophils % (Manual) Seg Neutrophils # Seg Neutrophils # Man Lymphocytes # (Manual) Eosinophils # (Manual) Basophils # (Manual) Percent Retic PT INR Fibrinogen D-Dimer ABG pH POC ABG pCO2 POC ABG pO2 ABG pO2 57.6 L ABG HCO3 27.1 H ABG O2 Saturation 88.5 L ABG Base Excess ABG Hemoglobin ABG Oxyhemoglobin ABG Sodium ABG Potassium ABG Chloride ABG Glucose Oxyhemoglobin 86.6 L Carboxyhemoglobin Sodium Potassium Chloride Carbon Dioxide BUN Creatinine Glucose POC Glucose 113 H 121 H Hemoglobin A1c Calcium Phosphorus Magnesium AST ALT Alkaline Phosphatase Lactate Dehydrogenase C-Reactive Protein Total Protein Albumin Triglycerides Arterial Blood Glucose Arterial Blood Ionized Calcium Urine Creatinine Random Vancomycin Coronavirus (PCR) Crossmatch 03/28/21 03/28/21 03/28/21 09:37 09:37 11:48 WBC 16.3 H RBC 2.92 L Hgb 8.2 L Hct 24.8 L MCH MCHC RDW 17.5 H Plt Count Lymph % (Auto) 10.7 L [place] # (Auto) 0.9 H Eos # (Auto) 0.6 H Seg Neutrophils % 80.0 H Eosinophils % (Manual) Basophils % (Manual) Seg Neutrophils # 13.0 H Seg Neutrophils # Man Lymphocytes # (Manual) Eosinophils # (Manual) Basophils # (Manual) Percent Retic PT INR Fibrinogen D-Dimer ABG pH POC ABG pCO2 POC ABG pO2 ABG pO2 ABG HCO3 ABG O2 Saturation ABG Base Excess ABG Hemoglobin ABG Oxyhemoglobin ABG Sodium ABG Potassium ABG Chloride ABG Glucose Oxyhemoglobin Carboxyhemoglobin Sodium Potassium Chloride Carbon Dioxide BUN 61 H Creatinine 7.7 H Glucose 148 H POC Glucose 123 H Hemoglobin A1c Calcium Phosphorus Magnesium AST ALT Alkaline Phosphatase Lactate Dehydrogenase C-Reactive Protein Total Protein Albumin Triglycerides Arterial Blood Glucose Arterial Blood Ionized Calcium Urine Creatinine Random Vancomycin Coronavirus (PCR) Crossmatch 03/28/21 03/28/21 03/28/21 17:33 21:08 23:38 WBC RBC Hgb Hct MCH MCHC RDW Plt Count Lymph % (Auto) [place] # (Auto) Eos # (Auto) Seg Neutrophils % Eosinophils % (Manual) Basophils % (Manual) Seg Neutrophils # Seg Neutrophils # Man Lymphocytes # (Manual) Eosinophils # (Manual) Basophils # (Manual) Percent Retic PT INR Fibrinogen D-Dimer ABG pH POC ABG pCO2 POC ABG pO2 80.5 L ABG pO2 ABG HCO3 ABG O2 Saturation ABG Base Excess ABG Hemoglobin 9.5 L ABG Oxyhemoglobin ABG Sodium 133.3 L ABG Potassium ABG Chloride ABG Glucose 134 H Oxyhemoglobin Carboxyhemoglobin 0.3 L Sodium Potassium Chloride Carbon Dioxide BUN Creatinine Glucose POC Glucose 128 H 112 H Hemoglobin A1c Calcium Phosphorus Magnesium AST ALT Alkaline Phosphatase Lactate Dehydrogenase C-Reactive Protein Total Protein Albumin Triglycerides Arterial Blood Glucose 134 H Arterial Blood Ionized Calcium Urine Creatinine Random Vancomycin Coronavirus (PCR) Crossmatch 03/29/21 03/29/21 03/29/21 04:45 04:45 04:45 WBC 17.5 H RBC 3.15 L Hgb 8.8 L Hct 27.2 L MCH MCHC RDW 17.9 H Plt Count 132 L Lymph % (Auto) [place] # (Auto) Eos # (Auto) Seg Neutrophils % Eosinophils % (Manual) Basophils % (Manual) Seg Neutrophils # Seg Neutrophils # Man Lymphocytes # (Manual) Eosinophils # (Manual) Basophils # (Manual) Percent Retic PT INR Fibrinogen D-Dimer ABG pH POC ABG pCO2 POC ABG pO2 ABG pO2 ABG HCO3 ABG O2 Saturation ABG Base Excess ABG Hemoglobin ABG Oxyhemoglobin ABG Sodium ABG Potassium ABG Chloride ABG Glucose Oxyhemoglobin Carboxyhemoglobin Sodium Potassium Chloride 97.7 L Carbon Dioxide 21 L BUN 78 H Creatinine 9.5 H Glucose 132 H POC Glucose Hemoglobin A1c Calcium Phosphorus Magnesium AST ALT Alkaline Phosphatase Lactate Dehydrogenase C-Reactive Protein Total Protein Albumin 2.2 L Triglycerides 385 H Arterial Blood Glucose Arterial Blood Ionized Calcium Urine Creatinine Random Vancomycin Coronavirus (PCR) Crossmatch 03/29/21 03/29/21 03/29/21 11:35 16:50 21:06 WBC RBC Hgb Hct MCH MCHC RDW Plt Count Lymph % (Auto) [place] # (Auto) Eos # (Auto) Seg Neutrophils % Eosinophils % (Manual) Basophils % (Manual) Seg Neutrophils # Seg Neutrophils # Man Lymphocytes # (Manual) Eosinophils # (Manual) Basophils # (Manual) Percent Retic PT INR Fibrinogen D-Dimer ABG pH POC ABG pCO2 POC ABG pO2 ABG pO2 64.9 L ABG HCO3 ABG O2 Saturation ABG Base Excess -5.2 L ABG Hemoglobin ABG Oxyhemoglobin ABG Sodium ABG Potassium ABG Chloride ABG Glucose Oxyhemoglobin 85.1 L Carboxyhemoglobin Sodium Potassium Chloride Carbon Dioxide BUN Creatinine Glucose POC Glucose 148 H 133 H Hemoglobin A1c Calcium Phosphorus Magnesium AST ALT Alkaline Phosphatase Lactate Dehydrogenase C-Reactive Protein Total Protein Albumin Triglycerides Arterial Blood Glucose Arterial Blood Ionized Calcium Urine Creatinine Random Vancomycin Coronavirus (PCR) Crossmatch 03/29/21 03/30/21 03/30/21 Unknown 00:13 04:00 WBC 15.7 H RBC 3.18 L Hgb 8.6 L Hct 27.3 L MCH 27 L MCHC RDW 18.0 H Plt Count 86 L Lymph % (Auto) [place] # (Auto) Eos # (Auto) Seg Neutrophils % Eosinophils % (Manual) Basophils % (Manual) Seg Neutrophils # Seg Neutrophils # Man Lymphocytes # (Manual) Eosinophils # (Manual) Basophils # (Manual) Percent Retic PT INR Fibrinogen D-Dimer ABG pH 7.258 L POC ABG pCO2 POC ABG pO2 ABG pO2 ABG HCO3 ABG O2 Saturation ABG Base Excess -4.9 L ABG Hemoglobin 8.8 L ABG Oxyhemoglobin ABG Sodium ABG Potassium ABG Chloride ABG Glucose Oxyhemoglobin 93.9 L Carboxyhemoglobin Sodium Potassium Chloride Carbon Dioxide BUN Creatinine Glucose POC Glucose 129 H Hemoglobin A1c Calcium Phosphorus Magnesium AST ALT Alkaline Phosphatase Lactate Dehydrogenase C-Reactive Protein Total Protein Albumin Triglycerides Arterial Blood Glucose Arterial Blood Ionized Calcium Urine Creatinine Random Vancomycin Coronavirus (PCR) Crossmatch 03/30/21 03/30/21 03/30/21 04:00 04:00 06:02 WBC RBC Hgb Hct MCH MCHC RDW Plt Count Lymph % (Auto) [place] # (Auto) Eos # (Auto) Seg Neutrophils % Eosinophils % (Manual) Basophils % (Manual) Seg Neutrophils # Seg Neutrophils # Man Lymphocytes # (Manual) Eosinophils # (Manual) Basophils # (Manual) Percent Retic PT INR Fibrinogen D-Dimer 2607.12 H ABG pH POC ABG pCO2 POC ABG pO2 ABG pO2 ABG HCO3 ABG O2 Saturation ABG Base Excess ABG Hemoglobin ABG Oxyhemoglobin ABG Sodium ABG Potassium ABG Chloride ABG Glucose Oxyhemoglobin Carboxyhemoglobin Sodium 133 L Potassium 5.2 H D Chloride 91.5 L Carbon Dioxide 18 L BUN 101 H Creatinine 10.6 H Glucose 149 H POC Glucose 130 H Hemoglobin A1c Calcium Phosphorus 10.30 H Magnesium AST ALT Alkaline Phosphatase Lactate Dehydrogenase C-Reactive Protein 21.50 H Total Protein Albumin Triglycerides Arterial Blood Glucose Arterial Blood Ionized Calcium Urine Creatinine Random Vancomycin Coronavirus (PCR) Crossmatch 03/30/21 03/30/21 03/30/21 10:36 11:48 17:20 WBC RBC Hgb Hct MCH MCHC RDW Plt Count Lymph % (Auto) [place] # (Auto) Eos # (Auto) Seg Neutrophils % Eosinophils % (Manual) Basophils % (Manual) Seg Neutrophils # Seg Neutrophils # Man Lymphocytes # (Manual) Eosinophils # (Manual) Basophils # (Manual) Percent Retic PT INR Fibrinogen D-Dimer ABG pH 7.224 L POC ABG pCO2 49.1 H POC ABG pO2 61.5 L ABG pO2 ABG HCO3 ABG O2 Saturation ABG Base Excess ABG Hemoglobin 10.2 L ABG Oxyhemoglobin 86.2 L ABG Sodium 129.6 L ABG Potassium 5.4 H ABG Chloride 96.0 L ABG Glucose 161 H Oxyhemoglobin Carboxyhemoglobin Sodium Potassium Chloride Carbon Dioxide BUN Creatinine Glucose POC Glucose 163 H 130 H Hemoglobin A1c Calcium Phosphorus Magnesium AST ALT Alkaline Phosphatase Lactate Dehydrogenase C-Reactive Protein Total Protein Albumin Triglycerides Arterial Blood Glucose 161 H Arterial Blood Ionized Calcium 4.4 L Urine Creatinine Random Vancomycin Coronavirus (PCR) Crossmatch 03/30/21 03/31/21 03/31/21 23:49 00:28 05:20 WBC 17.3 H RBC 2.99 L Hgb 8.2 L Hct 25.3 L MCH 27 L MCHC RDW 18.3 H Plt Count 126 L Lymph % (Auto) [place] # (Auto) Eos # (Auto) Seg Neutrophils % Eosinophils % (Manual) Basophils % (Manual) Seg Neutrophils # Seg Neutrophils # Man Lymphocytes # (Manual) Eosinophils # (Manual) Basophils # (Manual) Percent Retic PT INR Fibrinogen D-Dimer ABG pH 7.249 L POC ABG pCO2 POC ABG pO2 77.7 L ABG pO2 ABG HCO3 ABG O2 Saturation ABG Base Excess ABG Hemoglobin 9.0 L ABG Oxyhemoglobin 92.9 L ABG Sodium 130.4 L ABG Potassium 4.7 H ABG Chloride ABG Glucose 166 H Oxyhemoglobin Carboxyhemoglobin 0.4 L Sodium Potassium Chloride Carbon Dioxide BUN Creatinine Glucose POC Glucose 143 H Hemoglobin A1c Calcium Phosphorus Magnesium AST ALT Alkaline Phosphatase Lactate Dehydrogenase C-Reactive Protein Total Protein Albumin Triglycerides Arterial Blood Glucose 166 H Arterial Blood Ionized Calcium 4.3 L Urine Creatinine Random Vancomycin Coronavirus (PCR) Crossmatch 03/31/21 03/31/21 03/31/21 05:20 06:18 09:44 WBC RBC Hgb Hct MCH MCHC RDW Plt Count Lymph % (Auto) [place] # (Auto) Eos # (Auto) Seg Neutrophils % Eosinophils % (Manual) Basophils % (Manual) Seg Neutrophils # Seg Neutrophils # Man Lymphocytes # (Manual) Eosinophils # (Manual) Basophils # (Manual) Percent Retic PT INR Fibrinogen D-Dimer ABG pH 7.247 L POC ABG pCO2 POC ABG pO2 ABG pO2 ABG HCO3 ABG O2 Saturation 94.4 L ABG Base Excess -5.1 L ABG Hemoglobin 8.2 L ABG Oxyhemoglobin ABG Sodium ABG Potassium ABG Chloride ABG Glucose Oxyhemoglobin 92.4 L Carboxyhemoglobin Sodium Potassium Chloride Carbon Dioxide BUN Creatinine Glucose POC Glucose 155 H Hemoglobin A1c Calcium Phosphorus 8.20 H D Magnesium AST ALT Alkaline Phosphatase Lactate Dehydrogenase C-Reactive Protein Total Protein Albumin Triglycerides Arterial Blood Glucose Arterial Blood Ionized Calcium Urine Creatinine Random Vancomycin Coronavirus (PCR) Crossmatch 03/31/21 03/31/21 03/31/21 09:49 09:55 09:55 WBC RBC Hgb Hct MCH MCHC RDW Plt Count Lymph % (Auto) [place] # (Auto) Eos # (Auto) Seg Neutrophils % Eosinophils % (Manual) Basophils % (Manual) Seg Neutrophils # Seg Neutrophils # Man Lymphocytes # (Manual) Eosinophils # (Manual) Basophils # (Manual) Percent Retic 4.52 H PT 16.5 H INR 1.20 H Fibrinogen D-Dimer ABG pH POC ABG pCO2 POC ABG pO2 ABG pO2 ABG HCO3 ABG O2 Saturation ABG Base Excess ABG Hemoglobin ABG Oxyhemoglobin ABG Sodium ABG Potassium ABG Chloride ABG Glucose Oxyhemoglobin Carboxyhemoglobin Sodium 133 L Potassium Chloride 92.8 L Carbon Dioxide 20 L BUN 87 H Creatinine 8.9 H Glucose 177 H POC Glucose Hemoglobin A1c Calcium 8.2 L Phosphorus Magnesium AST 169 H ALT Alkaline Phosphatase 187 H Lactate Dehydrogenase C-Reactive Protein Total Protein Albumin 2.3 L Triglycerides Arterial Blood Glucose Arterial Blood Ionized Calcium Urine Creatinine Random Vancomycin Coronavirus (PCR) Crossmatch 03/31/21 03/31/21 03/31/21 09:55 09:55 11:25 WBC RBC Hgb Hct MCH MCHC RDW Plt Count Lymph % (Auto) [place] # (Auto) Eos # (Auto) Seg Neutrophils % Eosinophils % (Manual) Basophils % (Manual) Seg Neutrophils # Seg Neutrophils # Man Lymphocytes # (Manual) Eosinophils # (Manual) Basophils # (Manual) Percent Retic PT INR Fibrinogen 491 H D-Dimer ABG pH POC ABG pCO2 POC ABG pO2 ABG pO2 ABG HCO3 ABG O2 Saturation ABG Base Excess ABG Hemoglobin ABG Oxyhemoglobin ABG Sodium ABG Potassium ABG Chloride ABG Glucose Oxyhemoglobin Carboxyhemoglobin Sodium Potassium Chloride Carbon Dioxide BUN Creatinine Glucose POC Glucose 178 H Hemoglobin A1c Calcium Phosphorus Magnesium AST ALT Alkaline Phosphatase Lactate Dehydrogenase 509 H C-Reactive Protein Total Protein Albumin Triglycerides Arterial Blood Glucose Arterial Blood Ionized Calcium Urine Creatinine Random Vancomycin Coronavirus (PCR) Crossmatch 03/31/21 03/31/21 03/31/21 12:30 17:40 21:00 WBC RBC Hgb Hct MCH MCHC RDW Plt Count Lymph % (Auto) [place] # (Auto) Eos # (Auto) Seg Neutrophils % Eosinophils % (Manual) Basophils % (Manual) Seg Neutrophils # Seg Neutrophils # Man Lymphocytes # (Manual) Eosinophils # (Manual) Basophils # (Manual) Percent Retic PT INR Fibrinogen D-Dimer ABG pH 7.235 L 7.216 L POC ABG pCO2 POC ABG pO2 ABG pO2 76.8 L 113.9 H ABG HCO3 ABG O2 Saturation 93.2 L ABG Base Excess -5.3 L -7.3 L ABG Hemoglobin 6.3 L 8.0 L ABG Oxyhemoglobin ABG Sodium ABG Potassium ABG Chloride ABG Glucose Oxyhemoglobin 91.1 L Carboxyhemoglobin Sodium Potassium Chloride Carbon Dioxide BUN Creatinine Glucose POC Glucose 245 H Hemoglobin A1c Calcium Phosphorus Magnesium AST ALT Alkaline Phosphatase Lactate Dehydrogenase C-Reactive Protein Total Protein Albumin Triglycerides Arterial Blood Glucose Arterial Blood Ionized Calcium Urine Creatinine Random Vancomycin Coronavirus (PCR) Crossmatch 04/01/21 04/01/21 04/01/21 00:11 05:09 08:25 WBC RBC Hgb Hct MCH MCHC RDW Plt Count Lymph % (Auto) [place] # (Auto) Eos # (Auto) Seg Neutrophils % Eosinophils % (Manual) Basophils % (Manual) Seg Neutrophils # Seg Neutrophils # Man Lymphocytes # (Manual) Eosinophils # (Manual) Basophils # (Manual) Percent Retic PT INR Fibrinogen D-Dimer ABG pH 7.225 L POC ABG pCO2 POC ABG pO2 ABG pO2 76.4 L ABG HCO3 ABG O2 Saturation 92.2 L ABG Base Excess -7.6 L ABG Hemoglobin 7.3 L ABG Oxyhemoglobin ABG Sodium ABG Potassium ABG Chloride ABG Glucose Oxyhemoglobin 90.2 L Carboxyhemoglobin Sodium Potassium Chloride Carbon Dioxide BUN Creatinine Glucose POC Glucose 209 H 173 H Hemoglobin A1c Calcium Phosphorus Magnesium AST ALT Alkaline Phosphatase Lactate Dehydrogenase C-Reactive Protein Total Protein Albumin Triglycerides Arterial Blood Glucose Arterial Blood Ionized Calcium Urine Creatinine Random Vancomycin Coronavirus (PCR) Crossmatch 04/01/21 04/01/21 04/01/21 12:01 12:05 17:55 WBC RBC Hgb Hct MCH MCHC RDW Plt Count Lymph % (Auto) [place] # (Auto) Eos # (Auto) Seg Neutrophils % Eosinophils % (Manual) Basophils % (Manual) Seg Neutrophils # Seg Neutrophils # Man Lymphocytes # (Manual) Eosinophils # (Manual) Basophils # (Manual) Percent Retic PT INR Fibrinogen D-Dimer ABG pH POC ABG pCO2 POC ABG pO2 ABG pO2 ABG HCO3 ABG O2 Saturation ABG Base Excess ABG Hemoglobin ABG Oxyhemoglobin ABG Sodium ABG Potassium ABG Chloride ABG Glucose Oxyhemoglobin Carboxyhemoglobin Sodium Potassium 5.9 H Chloride Carbon Dioxide BUN Creatinine Glucose POC Glucose 202 H 217 H Hemoglobin A1c Calcium Phosphorus Magnesium AST ALT Alkaline Phosphatase Lactate Dehydrogenase C-Reactive Protein Total Protein Albumin Triglycerides Arterial Blood Glucose Arterial Blood Ionized Calcium Urine Creatinine Random Vancomycin Coronavirus (PCR) Crossmatch 04/01/21 04/01/21 04/01/21 Unknown Unknown 23:59 WBC 27.2 H RBC 3.08 L Hgb 8.4 L Hct 26.0 L MCH 27 L MCHC RDW 18.5 H Plt Count Lymph % (Auto) [place] # (Auto) Eos # (Auto) Seg Neutrophils % Eosinophils % (Manual) Basophils % (Manual) Seg Neutrophils # Seg Neutrophils # Man Lymphocytes # (Manual) Eosinophils # (Manual) Basophils # (Manual) Percent Retic PT INR Fibrinogen D-Dimer ABG pH POC ABG pCO2 POC ABG pO2 ABG pO2 ABG HCO3 ABG O2 Saturation ABG Base Excess ABG Hemoglobin ABG Oxyhemoglobin ABG Sodium ABG Potassium ABG Chloride ABG Glucose Oxyhemoglobin Carboxyhemoglobin Sodium 132 L Potassium 6.6 H* D Chloride 91.3 L Carbon Dioxide 17 L BUN 104 H Creatinine 9.3 H Glucose 199 H POC Glucose 172 H Hemoglobin A1c Calcium 8.3 L Phosphorus Magnesium AST 236 H ALT 93 H Alkaline Phosphatase 191 H Lactate Dehydrogenase C-Reactive Protein Total Protein Albumin 2.4 L Triglycerides Arterial Blood Glucose Arterial Blood Ionized Calcium Urine Creatinine Random Vancomycin Coronavirus (PCR) Crossmatch 04/02/21 04/02/21 04/02/21 04:00 04:00 05:00 WBC 31.0 H RBC 2.93 L Hgb 8.0 L Hct 24.7 L MCH 27 L MCHC RDW 19.2 H Plt Count 131 L Lymph % (Auto) [place] # (Auto) Eos # (Auto) Seg Neutrophils % Eosinophils % (Manual) Basophils % (Manual) Seg Neutrophils # Seg Neutrophils # Man Lymphocytes # (Manual) Eosinophils # (Manual) Basophils # (Manual) Percent Retic PT 16.0 H INR 1.16 H Fibrinogen D-Dimer ABG pH POC ABG pCO2 POC ABG pO2 ABG pO2 ABG HCO3 ABG O2 Saturation ABG Base Excess ABG Hemoglobin ABG Oxyhemoglobin ABG Sodium ABG Potassium ABG Chloride ABG Glucose Oxyhemoglobin Carboxyhemoglobin Sodium 135 L Potassium 5.3 H Chloride 96.1 L Carbon Dioxide 18 L BUN 80 H Creatinine 6.8 H Glucose 174 H POC Glucose Hemoglobin A1c Calcium 7.7 L Phosphorus Magnesium AST 106 H ALT 60 H Alkaline Phosphatase Lactate Dehydrogenase C-Reactive Protein Total Protein 5.9 L Albumin 3.5 L Triglycerides 579 H Arterial Blood Glucose Arterial Blood Ionized Calcium Urine Creatinine Random Vancomycin Coronavirus (PCR) Crossmatch 04/02/21 04/02/21 04/02/21 05:09 08:55 11:06 WBC RBC Hgb Hct MCH MCHC RDW Plt Count Lymph % (Auto) [place] # (Auto) Eos # (Auto) Seg Neutrophils % Eosinophils % (Manual) Basophils % (Manual) Seg Neutrophils # Seg Neutrophils # Man Lymphocytes # (Manual) Eosinophils # (Manual) Basophils # (Manual) Percent Retic PT INR Fibrinogen D-Dimer ABG pH 7.188 L POC ABG pCO2 58.3 H POC ABG pO2 132.8 H ABG pO2 ABG HCO3 ABG O2 Saturation ABG Base Excess ABG Hemoglobin 8.4 L ABG Oxyhemoglobin ABG Sodium ABG Potassium 5.0 H ABG Chloride 97.0 L ABG Glucose 156 H Oxyhemoglobin Carboxyhemoglobin 0.4 L Sodium Potassium Chloride Carbon Dioxide BUN Creatinine Glucose POC Glucose 148 H 167 H Hemoglobin A1c Calcium Phosphorus Magnesium AST ALT Alkaline Phosphatase Lactate Dehydrogenase C-Reactive Protein Total Protein Albumin Triglycerides Arterial Blood Glucose 156 H Arterial Blood Ionized Calcium 4.2 L Urine Creatinine Random Vancomycin Coronavirus (PCR) Crossmatch 04/02/21 04/02/21 04/03/21 17:57 20:40 00:28 WBC RBC Hgb Hct MCH MCHC RDW Plt Count Lymph % (Auto) [place] # (Auto) Eos # (Auto) Seg Neutrophils % Eosinophils % (Manual) Basophils % (Manual) Seg Neutrophils # Seg Neutrophils # Man Lymphocytes # (Manual) Eosinophils # (Manual) Basophils # (Manual) Percent Retic PT INR Fibrinogen D-Dimer ABG pH POC ABG pCO2 POC ABG pO2 ABG pO2 111.9 H ABG HCO3 18.9 L ABG O2 Saturation ABG Base Excess -9.9 L ABG Hemoglobin ABG Oxyhemoglobin ABG Sodium ABG Potassium ABG Chloride ABG Glucose Oxyhemoglobin Carboxyhemoglobin Sodium Potassium Chloride Carbon Dioxide BUN Creatinine Glucose POC Glucose 205 H 217 H Hemoglobin A1c Calcium Phosphorus Magnesium AST ALT Alkaline Phosphatase Lactate Dehydrogenase C-Reactive Protein Total Protein Albumin Triglycerides Arterial Blood Glucose Arterial Blood Ionized Calcium Urine Creatinine Random Vancomycin Coronavirus (PCR) Crossmatch 04/03/21 04/03/21 04/03/21 03:39 04:30 04:30 WBC 31.1 H RBC 2.78 L Hgb 8.0 L Hct 24.0 L MCH MCHC RDW 19.0 H Plt Count Lymph % (Auto) [place] # (Auto) Eos # (Auto) Seg Neutrophils % Eosinophils % (Manual) 27.0 H Basophils % (Manual) 2.0 H Seg Neutrophils # Seg Neutrophils # Man 13.7 H Lymphocytes # (Manual) 8.4 H Eosinophils # (Manual) 8.4 H Basophils # (Manual) 0.6 H Percent Retic PT INR Fibrinogen D-Dimer ABG pH POC ABG pCO2 POC ABG pO2 ABG pO2 ABG HCO3 ABG O2 Saturation ABG Base Excess ABG Hemoglobin ABG Oxyhemoglobin ABG Sodium ABG Potassium ABG Chloride ABG Glucose Oxyhemoglobin Carboxyhemoglobin Sodium 132 L Potassium 5.8 H Chloride 94.5 L Carbon Dioxide 16 L BUN 97 H Creatinine 7.7 H Glucose 230 H POC Glucose 201 H Hemoglobin A1c Calcium 7.6 L Phosphorus Magnesium AST 47 H ALT Alkaline Phosphatase 146 H Lactate Dehydrogenase C-Reactive Protein Total Protein 5.2 L Albumin 3.4 L Triglycerides Arterial Blood Glucose Arterial Blood Ionized Calcium Urine Creatinine Random Vancomycin Coronavirus (PCR) Crossmatch 04/03/21 04/03/21 04/03/21 04:30 08:31 11:29 WBC RBC Hgb Hct MCH MCHC RDW Plt Count Lymph % (Auto) [place] # (Auto) Eos # (Auto) Seg Neutrophils % Eosinophils % (Manual) Basophils % (Manual) Seg Neutrophils # Seg Neutrophils # Man Lymphocytes # (Manual) Eosinophils # (Manual) Basophils # (Manual) Percent Retic PT INR Fibrinogen D-Dimer ABG pH 7.195 L* POC ABG pCO2 POC ABG pO2 ABG pO2 102.6 H ABG HCO3 ABG O2 Saturation ABG Base Excess -7.2 L ABG Hemoglobin 8.0 L ABG Oxyhemoglobin ABG Sodium ABG Potassium ABG Chloride ABG Glucose Oxyhemoglobin 94.7 L Carboxyhemoglobin Sodium Potassium Chloride Carbon Dioxide BUN Creatinine Glucose POC Glucose 230 H Hemoglobin A1c Calcium Phosphorus 10.30 H Magnesium AST ALT Alkaline Phosphatase Lactate Dehydrogenase C-Reactive Protein Total Protein Albumin Triglycerides Arterial Blood Glucose Arterial Blood Ionized Calcium Urine Creatinine Random Vancomycin Coronavirus (PCR) Crossmatch 04/03/21 04/03/21 04/04/21 16:53 20:45 05:00 WBC 28.8 H RBC 2.64 L Hgb 8.7 L Hct 22.2 L MCH 33 H MCHC 39 H* RDW 18.6 H Plt Count Lymph % (Auto) [place] # (Auto) Eos # (Auto) Seg Neutrophils % Eosinophils % (Manual) Basophils % (Manual) Seg Neutrophils # Seg Neutrophils # Man Lymphocytes # (Manual) Eosinophils # (Manual) Basophils # (Manual) Percent Retic PT INR Fibrinogen D-Dimer ABG pH POC ABG pCO2 POC ABG pO2 ABG pO2 ABG HCO3 ABG O2 Saturation ABG Base Excess ABG Hemoglobin ABG Oxyhemoglobin ABG Sodium ABG Potassium ABG Chloride ABG Glucose Oxyhemoglobin 94.8 L Carboxyhemoglobin Sodium Potassium Chloride Carbon Dioxide BUN Creatinine Glucose POC Glucose 227 H Hemoglobin A1c Calcium Phosphorus Magnesium AST ALT Alkaline Phosphatase Lactate Dehydrogenase C-Reactive Protein Total Protein Albumin Triglycerides Arterial Blood Glucose Arterial Blood Ionized Calcium Urine Creatinine Random Vancomycin Coronavirus (PCR) Crossmatch 04/04/21 04/04/21 04/04/21 05:29 07:55 09:20 WBC RBC Hgb Hct MCH MCHC RDW Plt Count Lymph % (Auto) [place] # (Auto) Eos # (Auto) Seg Neutrophils % Eosinophils % (Manual) Basophils % (Manual) Seg Neutrophils # Seg Neutrophils # Man Lymphocytes # (Manual) Eosinophils # (Manual) Basophils # (Manual) Percent Retic PT INR Fibrinogen D-Dimer ABG pH POC ABG pCO2 POC ABG pO2 ABG pO2 ABG HCO3 ABG O2 Saturation ABG Base Excess ABG Hemoglobin ABG Oxyhemoglobin ABG Sodium ABG Potassium ABG Chloride ABG Glucose Oxyhemoglobin Carboxyhemoglobin Sodium 133 L Potassium Chloride 91.0 L Carbon Dioxide 20 L BUN 75 H Creatinine 4.7 H Glucose 184 H POC Glucose 133 H Hemoglobin A1c Calcium 7.3 L Phosphorus Magnesium AST < 5 L ALT < 5 L Alkaline Phosphatase 200 H Lactate Dehydrogenase C-Reactive Protein Total Protein 5.6 L Albumin 2.9 L Triglycerides Arterial Blood Glucose Arterial Blood Ionized Calcium Urine Creatinine Random Vancomycin Coronavirus (PCR) Crossmatch See Detail 04/04/21 12:01 WBC RBC Hgb Hct MCH MCHC RDW Plt Count Lymph % (Auto) [place] # (Auto) Eos # (Auto) Seg Neutrophils % Eosinophils % (Manual) Basophils % (Manual) Seg Neutrophils # Seg Neutrophils # Man Lymphocytes # (Manual) Eosinophils # (Manual) Basophils # (Manual) Percent Retic PT INR Fibrinogen D-Dimer ABG pH POC ABG pCO2 POC ABG pO2 ABG pO2 ABG HCO3 ABG O2 Saturation ABG Base Excess ABG Hemoglobin ABG Oxyhemoglobin ABG Sodium ABG Potassium ABG Chloride ABG Glucose Oxyhemoglobin Carboxyhemoglobin Sodium Potassium Chloride Carbon Dioxide BUN Creatinine Glucose POC Glucose 199 H Hemoglobin A1c Calcium Phosphorus Magnesium AST ALT Alkaline Phosphatase Lactate Dehydrogenase C-Reactive Protein Total Protein Albumin Triglycerides Arterial Blood Glucose Arterial Blood Ionized Calcium Urine Creatinine Random Vancomycin Coronavirus (PCR) Crossmatch Allied health notes reviewed: nursing
[2021-04-04] MEDS ORDERED: QUEtiapine 100 MG TAB PO SCH (14:00)
[2021-04-04 14:16] LABS: ABG HCO3 24.7 mmol/L (20.0-26.0); ABG Methemoglobin 0.4 % (0.0-1.5); ABG Oxygen Saturation 94.8 % (95.0-99.0); ABG PCO2 70.6 mm Hg; ABG PO2 91.3 mm Hg (80.0-90.0)
[2021-04-04 14:19] LABS: ABG PH 7.162 pH Units (7.350-7.450)
[2021-04-04] MEDS ORDERED: SODIUM BICARB 8.4% 50 MEQ/50 ML SYRINGE IV ONE ×2 (14:33→14:34)
[2021-04-04] MEDS: QUEtiapine 100 MG TAB PO SCH ×2 (14:35→21:31)
[2021-04-04] MEDS: QUEtiapine 25 MG TAB PO SCH ×2 (14:35→21:31)
--- NOTE | 2021-04-04 14:41 | XRay Report ---
. CHEST - 1 VIEW INDICATION: barotrauma evaluation COMPARISON: Yesterday FINDINGS: SUPPORT DEVICES: Stable support device positioning. HEART: Stable cardiomediastinal silhouette. LUNGS/PLEURA: Persistent moderate patchy multifocal airspace disease with no pneumothorax or pneumom ediastinum. ADDITIONAL FINDINGS: None. IMPRESSION: Unchanged exam. Signer Name: Jens Molina MD Signed: 04/04/2021 2:36 PM Workstation Name: [id number]
--- NOTE | 2021-04-04 14:47 | Hem/Onc Progress Note ---
Subjective Interval history: Heme progress note cpt: 40781 Dx: thrombocytopenia 31yo obese AA woman 300 lbs, with covid infection and ARF requiring hD tried plasma exchange x 2 days, has hqad hypotension, on pressors h/o asthma and intubation 2019 h/o crohns disease per notes DATA REVIEWED BELOW IMP: Thrombocytopenia secondary to covid infection or medication doubt HUS or TTP, but tried a round of plasma exchange to see whether it helps high WBC is "reactive"-not heme malignancy REC/PLAN: RBC transfusions for severe anemia off plasma exchange now f/u LDH OK for eliquis 2.5mg vt bid Active Medications Apixaban (Apixaban 2.5 Mg Tab) 2.5 mg PO Q12HR INESSA; Protocol Last Admin: 04/04/21 09:50 Dose: 2.5 mg Documented by: Methylprednisolone Sodium Succinate (Methylprednisolone Sod Succinate 125 Mg/2 Ml Inj) 80 mg IV Q8HR INESSA Laboratory Last Values WBC 28.8 K/mm3 (4.5-11.0) H 04/04/21 05:00 Hgb 8.7 gm/dl (10.1-14.3) L 04/04/21 05:00 Hct 22.2 % (30.3-42.9) L 04/04/21 05:00 Plt Count 158 K/mm3 (140-440) 04/04/21 05:00 Percent Retic 4.52 % (0.78-2.58) H 03/31/21 09:49 Total Bilirubin 0.70 mg/dL (0.1-1.2) 04/04/21 07:55 Bilirubin Cancelled 04/03/21 20:45 AST < 5 units/L (5-40) L 04/04/21 07:55 ALT < 5 units/L (7-56) L 04/04/21 07:55 Alkaline Phosphatase 200 units/L (35-129) H 04/04/21 07:55 Lactate Dehydrogenase 509 units/L (91-180) H 03/31/21 09:55 Crossmatch See Detail 04/04/21 09:20 Objective - Constitutional Vitals: Last Vital Signs Temp 97.7 F 04/04/21 14:24 Pulse 111 H 04/04/21 14:33 Resp 31 H 04/04/21 14:33 BP 94/50 04/04/21 14:33 Pulse Ox 99 04/04/21 14:33 - Labs Lab Results: Laboratory Results - last 24 hr 03/25/21 04/03/21 04/03/21 13:45 16:53 20:45 WBC RBC Hgb Hct MCV MCH MCHC RDW Plt Count PT INR APTT ABG pH Cancelled POC ABG pCO2 Cancelled ABG pCO2 48.5 POC ABG pO2 Cancelled ABG pO2 84.8 POC ABG HCO3 Cancelled ABG HCO3 25.3 ABG O2 Saturation Cancelled ABG O2 Content Cancelled POC ABG Base Excess Cancelled ABG Base Excess -0.5 ABG Hemoglobin Cancelled ABG Oxyhemoglobin Cancelled ABG Carboxyhemoglobin 1.6 ABG Methemoglobin Cancelled ABG Sodium Cancelled ABG Potassium Cancelled ABG Chloride Cancelled ABG Glucose Cancelled ABG Lactate Cancelled Oxyhemoglobin 94.8 L Carboxyhemoglobin Cancelled FiO2 50 FiO2 % Cancelled Sodium Potassium Chloride Carbon Dioxide Anion Gap BUN Creatinine Estimated GFR BUN/Creatinine Ratio Glucose POC Glucose 227 H Calcium Total Bilirubin Bilirubin Cancelled AST ALT Alkaline Phosphatase Total Protein Albumin Albumin/Globulin Ratio Arterial Blood Glucose Cancelled Arterial Blood Ionized Calcium Cancelled Coronavirus (PCR) Blood Type Antibody Screen Crossmatch See Detail 04/04/21 04/04/21 04/04/21 00:15 05:00 05:29 WBC 28.8 H RBC 2.64 L Hgb 8.7 L Hct 22.2 L MCV 84 MCH 33 H MCHC 39 H* RDW 18.6 H Plt Count 158 PT INR APTT ABG pH POC ABG pCO2 ABG pCO2 POC ABG pO2 ABG pO2 POC ABG HCO3 ABG HCO3 ABG O2 Saturation ABG O2 Content POC ABG Base Excess ABG Base Excess ABG Hemoglobin ABG Oxyhemoglobin ABG Carboxyhemoglobin ABG Methemoglobin ABG Sodium ABG Potassium ABG Chloride ABG Glucose ABG Lactate Oxyhemoglobin Carboxyhemoglobin FiO2 FiO2 % Sodium Potassium Chloride Carbon Dioxide Anion Gap BUN Creatinine Estimated GFR BUN/Creatinine Ratio Glucose POC Glucose 98 133 H Calcium Total Bilirubin Bilirubin AST ALT Alkaline Phosphatase Total Protein Albumin Albumin/Globulin Ratio Arterial Blood Glucose Arterial Blood Ionized Calcium Coronavirus (PCR) Blood Type Antibody Screen Crossmatch 04/04/21 04/04/21 04/04/21 07:55 07:55 09:00 WBC RBC Hgb Hct MCV MCH MCHC RDW Plt Count PT 13.9 INR 0.96 APTT 28.9 ABG pH POC ABG pCO2 ABG pCO2 POC ABG pO2 ABG pO2 POC ABG HCO3 ABG HCO3 ABG O2 Saturation ABG O2 Content POC ABG Base Excess ABG Base Excess ABG Hemoglobin ABG Oxyhemoglobin ABG Carboxyhemoglobin ABG Methemoglobin ABG Sodium ABG Potassium ABG Chloride ABG Glucose ABG Lactate Oxyhemoglobin Carboxyhemoglobin FiO2 FiO2 % Sodium 133 L Potassium 4.0 D Chloride 91.0 L Carbon Dioxide 20 L Anion Gap 26 BUN 75 H Creatinine 4.7 H Estimated GFR 13 BUN/Creatinine Ratio 16 Glucose 184 H POC Glucose Calcium 7.3 L Total Bilirubin 0.70 Bilirubin AST < 5 L ALT < 5 L Alkaline Phosphatase 200 H Total Protein 5.6 L Albumin 2.9 L Albumin/Globulin Ratio 1.1 Arterial Blood Glucose Arterial Blood Ionized Calcium Coronavirus (PCR) Negative Blood Type Antibody Screen Crossmatch 04/04/21 04/04/21 04/04/21 09:20 12:01 14:06 WBC RBC Hgb Hct MCV MCH MCHC RDW Plt Count PT INR APTT ABG pH 7.162 L* POC ABG pCO2 ABG pCO2 70.6 POC ABG pO2 ABG pO2 91.3 H POC ABG HCO3 ABG HCO3 24.7 ABG O2 Saturation 94.8 L ABG O2 Content 10.0 POC ABG Base Excess ABG Base Excess -4.0 L ABG Hemoglobin 7.6 L ABG Oxyhemoglobin ABG Carboxyhemoglobin 2.1 ABG Methemoglobin 0.4 ABG Sodium ABG Potassium ABG Chloride ABG Glucose ABG Lactate Oxyhemoglobin 92.4 L Carboxyhemoglobin FiO2 60 FiO2 % Sodium Potassium Chloride Carbon Dioxide Anion Gap BUN Creatinine Estimated GFR BUN/Creatinine Ratio Glucose POC Glucose 199 H Calcium Total Bilirubin Bilirubin AST ALT Alkaline Phosphatase Total Protein Albumin Albumin/Globulin Ratio Arterial Blood Glucose Arterial Blood Ionized Calcium Coronavirus (PCR) Blood Type O POSITIVE Antibody Screen Negative Crossmatch See Detail Medications & Allergies - Medications Allergies/Adverse Reactions: Allergies oxycodone HCl [From Percocet] Allergy (Severe, Verified 03/30/21 14:01) Swelling hydrocodone bitartrate [From Vicodin] Allergy (Verified 03/31/21 08:20) Swelling ALLERGY TO TYLENOL VS OXYCODONE ACTIVE ORDER REMOVED FROM MAR SINCE UNABLE TO CONFIRM WITH FAMILY Home Medications: Home Medications Medication Instructions Recorded Confirmed Last Taken Type Chlorhexidine Mouthwash [Peridex] 15 ml MM BID #1 bottle 10/11/20 03/13/21 Unknown Rx Clindamycin [Clindamycin CAP] 300 mg PO Q8H #21 cap 10/11/20 03/13/21 Unknown Rx Naproxen 500 mg PO Q12H PRN #12 tablet 10/11/20 03/13/21 Unknown Rx Butalb/Acetamin/Caff 50-325-40 1 - 2 tab PO Q6HR PRN #15 tab 12/05/20 03/13/21 Unknown Rx [Fioricet 50-325-40] Famotidine [Pepcid] 20 mg PO BID #30 tablet 12/05/20 03/13/21 Unknown Rx Ketorolac [Toradol] 10 mg PO Q8H PRN #20 tablet 12/05/20 03/13/21 Unknown Rx Ondansetron [Zofran Odt] 4 mg PO Q6HR PRN #20 tab.rapdis 12/05/20 03/13/21 Unknown Rx Albuterol Sulfate [Proair 90 mcg IH Q4HR PRN #2 aer.[email or web address] 01/01/21 03/13/21 Unknown Rx Respiclick] Mupirocin [Bactroban 2% OINT] 1 applic TP BID 7 Days #1 tube 01/01/21 03/13/21 Unknown Rx Triamcinolone Aceton 0.1% (Nf) 1 applic TP BID 14 Days #1 tube 01/01/21 03/13/21 Unknown Rx [Kenalog (NF)] predniSONE [Deltasone] 40 mg PO QDAY #8 tab 01/01/21 03/13/21 Unknown Rx Active Medications: Generic Name Dose Route Start Last Admin Trade Name Freq PRN Reason Stop Dose Admin Acetaminophen 650 mg 03/31/21 12:41 04/04/21 09:50 Acetaminophen 325 Mg/10.15 Ml Oral Liqd Unit Dose FEEDTUBE 650 mg Q6H PRN Administration TEMP >/=100.4 Albumin Human 25 gm 04/01/21 08:19 04/01/21 16:23 Albumin Human 25% (25 Gm/100 Ml) Inj IV 25 gm KARLOS PRN Administration Hypotension Albuterol 2.5 mg 03/19/21 00:53 Albuterol 2.5 Mg/3 Ml Nebu IH Q4HRT PRN Shortness Of Breath Albuterol/Ipratropium 1 ampul 03/19/21 08:00 04/04/21 14:32 Ipratropium/Albuterol Sulfate 3 Ml Ampul.Neb IH 1 ampul Q6HRT INESSA Administration Lipase/Protease/Amylase 1 each 03/15/21 11:42 Lipase 10,500/Protease 25,000/Amylase 43,750 (Units) Dr Cap FEEDTUBE PRN PRN For Clogged Feeding Tube Apixaban 2.5 mg 03/29/21 13:00 04/04/21 09:50 Apixaban 2.5 Mg Tab PO 2.5 mg Q12HR INESSA Administration Protocol Ascorbic Acid 500 mg 03/14/21 22:00 04/04/21 09:50 Ascorbic Acid 500 Mg Tab PO 500 mg BID INESSA Administration Calcium Acetate 1,334 mg 04/03/21 20:00 04/04/21 13:20 Calcium Acetate 667 Mg Cap FEEDTUBE 1,334 mg TID INESSA Administration Dextrose 50 ml 03/14/21 11:02 03/15/21 11:40 Dextrose 50% In Water (25gm) 50 Ml Syringe IV 50 ml Q30MIN PRN Administration Hypoglycemia Protocol Famotidine 10 mg 03/17/21 22:00 04/04/21 09:50 Famotidine 10 Mg Tab PO 10 mg BID INESSA Administration Fentanyl 50 mcg 03/15/21 10:43 03/28/21 09:25 Fentanyl 100 Mcg/2 Ml Inj IV 50 mcg Q10MIN PRN Administration ANALGESIA Hydrophilic Ointment 1 applic 03/14/21 17:50 Lip Therapy Vaseline TP Q2HR PRN Dry Lips Propofol 1,000 mg in 100 mls @ 4.123 mls/hr 03/15/21 11:00 04/04/21 13:59 Diprivan 10 Mg/Ml IV 45 mcg/kg/min TITR INESSA 37.108 mls/hr Titration Protocol 5 MCG/KG/MIN Fentanyl Citrate 2,000 mcg in 100 mls @ 6.872 mls/hr 03/15/21 11:00 04/04/21 12:47 Fentanyl Drip Premix IV 4 mcg/kg/hr TITR INESSA 27.488 mls/hr Administration Protocol 1 MCG/KG/HR Sodium Chloride 500 mls @ 1 mls/hr 03/16/21 17:19 Nacl 0.9% 500 Ml IV DIRECT PRN ARTERIAL LINE FLUSH NORepinephrine/NS 8 MG-250 ML 8 mg in 250 mls @ 3.75 mls/hr 03/23/21 11:00 04/04/21 14:00 Norepinephrine/Ns 8 Mg-250 Ml (Double Conc) IV 10 mcg/min TITRATE INESSA 18.75 mls/hr Titration Protocol 2 MCG/MIN Midazolam HCl 100 mg/ Sodium 100 mls @ 1 mls/hr 03/30/21 15:00 04/04/21 13:59 Chloride IV 7 mg/hr TITR INESSA 7 mls/hr Titration Protocol 1 MG/HR Vasopressin 20 unit/ Sodium 101 mls @ 9.09 mls/hr 03/30/21 20:00 04/04/21 07:34 Chloride IV 0.03 units/min TITR INESSA 9.09 mls/hr Administration 0.03 UNITS/MIN Phenylephrine HCl 100 mg/ 100 mls @ 3 mls/hr 03/31/21 04:00 04/04/21 14:01 Sodium Chloride IV 40 mcg/min TITR INESSA 2.4 mls/hr Titration Protocol 50 MCG/MIN Sodium Chloride 100 mls @ 999 mls/hr 04/01/21 08:19 Nacl 0.9% IV KARLOS PRN Hypotension Sodium Bicarbonate 150 meq/ 1,150 mls @ 75 mls/hr 04/02/21 22:00 04/03/21 13:42 Dextrose IV 75 mls/hr DIRECT INESSA Administration Sodium Chloride 500 mls @ 0 mls/hr 04/04/21 08:40 Nacl 0.9% 500 Ml IV 04/04/21 20:00 ONCE NR As Directed Insulin Human Lispro 0 unit 03/14/21 12:00 04/04/21 12:42 Insulin Lispro 100 Unit/Ml SUB-Q 2 unit Q6HR INESSA Administration Protocol Lorazepam 1 mg 03/13/21 19:40 03/30/21 19:58 Lorazepam 2 Mg/Ml Vial IV 1 mg Q4H PRN Administration Anxiety Methylprednisolone Sodium Succinate 80 mg 04/04/21 22:00 Methylprednisolone Sod Succinate 125 Mg/2 Ml Inj IV Q8HR INESSA Midazolam HCl 2 mg 03/30/21 14:19 03/30/21 14:30 Midazolam 2 Mg/2 Ml Inj IV 2 mg Q10MIN PRN Administration Sedation Multi-Ingred Cream/Lotion/Oil/Oint 1 applic 03/14/21 17:50 04/02/21 14:31 Mineral Oil/Petrolatum, White Ophth Oint 3.5 Gm OU 1 applic Q4HR PRN Administration Dry Eye(s) Ondansetron HCl 4 mg 03/13/21 19:30 03/21/21 12:05 Ondansetron 4 Mg/2 Ml Inj IV 4 mg Q8H PRN Administration Nausea And Vomiting Quetiapine Fumarate 100 mg 04/04/21 14:00 04/04/21 14:35 Quetiapine 100 Mg Tab PO 100 mg BID INESSA Administration Quetiapine Fumarate 50 mg 04/04/21 14:00 04/04/21 14:35 Quetiapine 25 Mg Tab PO 50 mg BID INESSA Administration Senna/Docusate Sodium 1 tab 03/14/21 22:00 04/04/21 09:50 Sennosides/Docusate Sodium 8.6/50 Mg Tab FEEDTUBE 1 tab BID INESSA Administration Simple Syrup 15 ml 03/15/21 11:42 Simple Syrup 15 Ml FEEDTUBE PRN PRN Hypoglycemia Simple Syrup 30 ml 03/15/21 11:42 Simple Syrup 15 Ml FEEDTUBE PRN PRN Hypoglycemia Sodium Bicarbonate 325 mg 03/15/21 11:42 03/21/21 17:21 Sodium Bicarbonate 325 Mg Tab FEEDTUBE 325 mg PRN PRN Administration For Clogged Feeding Tube Sodium Bicarbonate 50 meq 04/04/21 14:34 Sodium Bicarb 8.4% 50 Meq/50 Ml Syringe IV 04/04/21 14:35 ONCE ONE Sodium Chloride 10 ml 03/13/21 22:00 04/04/21 09:51 Sodium Chloride 0.9% 10 Ml Flush Syringe IV 10 ml BID INESSA Administration Sodium Chloride 10 ml 03/13/21 19:30 Sodium Chloride 0.9% 10 Ml Flush Syringe IV PRN PRN LINE FLUSH Zinc Sulfate 220 mg 03/14/21 22:00 04/04/21 09:49 Zinc Sulfate 220 Mg Cap PO 220 mg BID INESSA Administration
[2021-04-04] MEDS: PHENYLEPHRINE 100 MG in SODIUM CHLORIDE 0.9% 90 ML IV SCH (15:54)
--- NOTE | 2021-04-04 16:29 | Progress Note ---
<CRISTY PASCUAL NancyEloisa - Last Filed: 04/04/21 16:25> Assessment and Plan Assessment and plan: This is a 31-year-old female with asthma, morbid obesity and Crohn's disease admitted for COVID-19 pneumonia and and acute renal failure Neuro: Sedated -Intubated and sedated on propofol and fentanyl and versed -sedation to vent synchrony -added serqual -monitor EKG fro QTC -Daily SAT/SBT when appropriate -Maintain sleep-wake cycle -Avoid delirium CV: Tachycardia, s/p hypertension now with hypotension -ST on the monitor -Vasopressor support with levophed, vasopressin and Anthony-Synephrine -Maintain MAP above 65 -Blood pressure monitoring via A-line Respiratory: Acute hypoxic respiratory failure, asthma exacerbation, COVID-19 pneumonia, ARDS, RUL PNA, bronchospasm (resolved) -DuoNeb, steroids -Patient was intubated on 03/14 for respiratory distress and inability to protect airway -Intubated with 7.50 ETT at 24 at the lip -A.m. vent settings: PCV Rate 30, PEEP 10, Fi)2 50%, PIP 28 -See RT notes for titration -ABGs per CCM -VAP bundle -SPO2 monitoring -CCM/pulmonary consulted, appreciate recommendations -S/p BiPAP therapy GI: transaminitis, h/o MO and Crohn's disease -Nutrition consulted, appreciate recommendations -Tube feeding: Nepro -Free water 100 mL every 4 hours -BR: [place] -PPI -24 hours +4518 ml -BMS in place : Acute kidney injury likely secondary to ATN, hyperphosphatemia, hyperkalemia, hyponatremia, hypochlroemia, metabolic acidosis -Nephrology consulted, appreciate recommendations -Vas-Cath placed 03/15 -HD initiated 03/15 -Daily weights -Strict intake and output -Avoid nephrotoxic medications -Renally dose medications -Trend BMP -Intervene for electrolytes as needed -HD per nephrology -Bicarb gtt for 2 liters ID: COVID-19 pneumonia, leukocytosis, Staph aureus in tracheal aspirate, Conjunctival hemorrhage, ?HUS vs drug reaction -Infectious disease consulted, appreciate recommendations -03/14 COVID-19 PCR (+), 04/10 COVID PCR (-) -IV steroid -03/31 1g methylprednisone for 3 days -taper started 04/02 -s/p Actemra per ID -Per ID patient is on a candidate for remdesivir due to renal failure -Patient received 1 dose of remdesivir on 03/14 -Prophylactic anticoagulation based on D-dimer -s/p Cipro/Dex drops for 5 days -Abx per ID: [email or web address] 03/27-03/31 -Trend COVID-19 inflammatory markers -Isolation/droplet precautions for 21 days -Vitamin C/vitamin D/zinc -follow culture data -Monitor WBC and fever curve -s/p plasmapheresis x2 (04/01-04/02) -LDH 509, Eliezer pending, fibrinogen 491 -Artic sun for temp regulation Heme: Leukocytosis, elevated D-dimer -Trend CBC -Transfuse hemoglobin less than 7 -Eliquis restarted 03/29 -SCDs to bilateral lower extremity while in bed -BLE duplex US shows no DVT -HIT negative Endo: Hyperglycemia -Hemoglobin A1c 6.3 -SSI -Accu-Cheks every 6 -Avoid hypoglycemia The high probability of a clinically significant, sudden or life threatening deterioration of the [multiple] system(s) required my full and direct attention, intervention and personal management. The aggregate critical care time was [60] minutes. This time is in addition to time spent performing reported procedures but includes the following: [x] Data Review and interpretation [x] Patient assessment and monitoring of vital signs [x] Documentation [x] Medication orders and management Disposition Plan: icu Total Time Spent with Patient (Minutes): 60 History Interval history: This is a 31-year-old female with asthma, history of prior intubation x1 in 02/2019, morbid obesity and Crohn's disease who presented to the emergency department on 03/13 with complaints of severe wheezing and shortness of breath over the past 4 days which is not relieved by home nebulizer treatments or rescue inhalers, cough without fever and no loss of sense of taste or smell. Patient is currently on vaccinated for COVID-19. In the emergency department patient was placed on BiPAP given steroids magnesium Solu-Medrol with improvement, CXR shows a streak of possible pneumonia. Patient was made a COVID-19 PUI and admitted to the hospital service. Patient was initially admitted to [facility] on BiPAP and was subsequently intubated due to severe respiratory distress and inability to protect her airway. Patient was admitted with acute hypoxic respiratory failure, acute asthma exacerbation, right upper lobe pneumonia, and as a COVID-19 PUI. Hospital Course to Date: 03/14/21- Patient is s/p intubation from this morning, sedated on propofol and fentanyl RASS -3 to -4. ETT above the clavicles advanced by 2cc. Continue nebs and IV steroids per [facility]. COVID swab pending. Hyperkalemia improved, X1 dose of kayaxalate ordered. Low BP and low urine output this am, fluid bolus challenge, 500cc of NS bolus given. Continue to monitor electrolytes and renal function, repeat BMP this afternoon. 03/15: Patient's renal function noted to be significantly worse today, patient was hyperkalemic and this was medically treated. Patient initiated on hemodialysis today. infectious disease was consulted today. 03/16: No acute events reported overnight, patient received hemodialysis yesterday. Patient is currently on propofol and fentanyl. 03/17: Patient received hemodialysis today, patient is slightly acidotic on ABG however [facility] is allowing for permissive hypercapnia, tracheal aspirate with Staph aureus and ID is aware. 03/18: Patient is having high residuals today and Reglan was started, patient will receive HD daily per nephrology, correct her change in FiO2 as tolerated. 03/19: HD per nephrology today, antibiotics changed to cefazolin. Patient did not tolerate tube feedings as she had high residuals this morning and they were turned off. Not restarted yet. Updated family at bedside today 03/20: HD today, ddimer noted to be >1000, Tolerating trickle TF. Stat BLE dopplar US 03/21: Patient is not tolerating TF, CXR shows worsening infiltrates, [facility] made changes to vent, TF on hold and started on IVF. 03/22/21- Patient remains intubated and on sedation. Persistent vomiting, TF held overnight, no documented BM, on reglan BR added, Shaun citarte & supp. HD today. Plan to restart TF at 10ml/hr, will reevaluate in the am. Persistent thrombocytopenia, Hep on hold, HIT panel ordered, PO eliquis initiated. 03/23/21- Patient remains on the vent and sedated on propofol and fentanyl RASS - 2 to -3. Possible SAT today as tolerated. Patient tolerated trickle feeds overnight, plan to advance TF by 10cc Q8 to 12hrs. Continue current BR and continue reglan for now. Slightr worsening in acidosis from this am, d/w [facility] vent setting adjusted, will repeat ABG at 9pm. 03/24/21- Patient is on the vent and sedated, on fentanyl and propfol. Bilateral subconjunctival hemorrhage with periorbital edema noted this am, pupils are round and reactive, will Cipro/Dex [id number]. Worsening of kidney function from today's labs, plan for HD per Nephro. 03/25/21- Patient remains intubated and on sedatin, RASS 0 to -1, no longer on pressors. Sudden drop in H&H this am, bilateral subconjunctival hemorrhage with no sig change, no signs of any active bleeding. Patient appears neurologically intact, following commands, pupils are round and reactive with + gag and cough, moved all extremities. D/w [facility] patient is too unstable for CT at this time. Eliquis D/Devaughn, 1unit of PRBC ordered. Will continue to trend CBC. Plan for another section of HD today 03/26/21- Patient remains on the vent and sedated. VENICE reported from overnight. Plan for HD again today. H&H back up and stable, no AC at this time, SCDs for VTE phro. D/w [facility] patient is still too unstable for CT scan, will continue neuro exam and will continue to monitor H&H. 03/27/21- VENICE overnight. remains on the vent and sedated. Red localized rashes noted in patient upper chest and face, will r/o allergic reaction,CBC with auto diff and urine eosinophils ordered. Plan for HD today per Nephro. 03/28/21- Patient remains on the vent and sedated. Persistent fevers overnight unrelieved with antipyretic, currently on a cooling blanket. Back on pressors for hypotension, patient already on IV abx, last blood cultureX2 and sputum culture from 03/23 were negative. Continue IV abx, will reculture patient, orders placed for B.culture and sputum culture. ID is also on consult. will continue F/u on culture and continue to monitor BMP and CBC. 03/29: Patient restarted on prednisone given splotchy rash, will resume apixaban for VTE prophylaxis and repeat ABG at 9 PM. Remains with leukocytosis, elevated BUN/creatinine, elevated triglycerides and on Levophed 03/30: HD today, rash is still present and started on IV steroids. plt is low today but will continue to monitor. [facility] made changes to vent-> decrease in MV. ABG in the pm and possible punch biopsy tomorrow if rash is not improved. propofol changed to versed 03/31: Heme/oncology consulted yesterday, will start patient on plasmapheresis for possible HUS. Cefepime discontinued today as today was the last day. Patient started on pulse dose steroids of 1 g/day for 3 days. Some improvement noted to eyes this morning. Patient was febrile overnight and received ibuprofen overnight. Acetaminophen allergy confirmed with family, allergy is only to oxycodone and hydrocodone but not the acetaminophen component. Confirmed by family patient has no reaction to [id number] Tylenol. Remains on vasopressor support and sedated with fentanyl, propofol and Versed. Vent mode changed to pressure control ventilation. Patient started on Arctic sun for fever control. Mother updated over telephone this a.m. and this p.m. family meeting held with her mother, sister x 2 and brother and with 2 other unknown people over the phone (1 female and one male) and nurse. Family states that patient is likely to an antibiotic possibly penicillins. This information was not available to us before. 04/01: Hyperkalemia medically treated, patient scheduled for dialysis today, plasmapheresis for possible HUS scheduled for today, steroids should be ending tomorrow, generalized rash/discoloration minimally better. Patient still remains on Arctic sun for temperature regulation. Vent changes per [facility]. 04/02: remains on artic sun but water temp noted to be in the 30s today. Completed plasmapheresis x2 and is now on steroid taper however minimal change noted to rash/discoloration. Eyes are more clear today but remain red under lids (tops of eye). Acidosis noted on ABG. Hyperkalemia and hyperphosphatemeia persists. Sedation increased for RR in to the 40s-50s and vasopressors being titrated as tolerated. 04/04: Patient receiving 1 unit PRBC per heme's recommendation, increased respiratory effort noted, patient is acidotic on ABG and given 1 amp of bicarb in addition to bicarb drip, sedation increased for vent synchrony. No HD per nephrology given tachycardia. Seroquel started. Hospitalist Physical - Constitutional Vitals: Temp Pulse Resp BP Pulse Ox 97.7 F 110 H 37 H 102/50 98 04/04/21 14:24 04/04/21 16:07 04/04/21 15:00 04/04/21 16:07 04/04/21 16:07 General appearance: Present: no acute distress, well-nourished, obese, other (Intubated and sedated) - EENT Eyes: Present: PERRL ENT: dentition normal - Neck Neck: Absent: masses or JVD, cervical LAD - Respiratory Respiratory effort: normal Respiratory: bilateral: diminished, wheezing - Cardiovascular Rhythm: regular Heart Sounds: Present: S1 & S2. Absent: systolic murmur, diastolic murmur - Extremities Extremities: pulses intact, pulses symmetrical Extremity abnormal: edema, erythema Peripheral Pulses: within normal limits - Abdominal General gastrointestinal: soft, non-tender, non-distended, normal bowel sounds - Integumentary Integumentary: Present: dry - Psychiatric Psychiatric: other (sedated) - Neurologic Neurologic: other (sedated) - Allied Health Allied health notes reviewed: nursing, RT, social work Results - Labs CBC & Chem 7: 04/04/21 05:00 04/04/21 07:55 Labs: Laboratory Last Values WBC 28.8 K/mm3 (4.5-11.0) H 04/04/21 05:00 RBC 2.64 M/mm3 (3.65-5.03) L 04/04/21 05:00 Hgb 8.7 gm/dl (10.1-14.3) L 04/04/21 05:00 Hct 22.2 % (30.3-42.9) L 04/04/21 05:00 MCV 84 fl (79-97) 04/04/21 05:00 MCH 33 pg (28-32) H 04/04/21 05:00 MCHC 39 % (30-34) H* 04/04/21 05:00 RDW 18.6 % (13.2-15.2) H 04/04/21 05:00 Plt Count 158 K/mm3 (140-440) 04/04/21 05:00 Lymph % (Auto) 10.7 % (13.4-35.0) L 03/28/21 09:37 [place] % (Auto) 5.2 % (0.0-7.3) 03/28/21 09:37 Eos % (Auto) Tie Puller 04/03/21 04:30 Baso % (Auto) 0.2 % (0.0-1.8) 03/28/21 09:37 Lymph # (Auto) 1.7 K/mm3 (1.2-5.4) 03/28/21 09:37 [place] # (Auto) 0.9 K/mm3 (0.0-0.8) H 03/28/21 09:37 Eos # (Auto) 0.6 K/mm3 (0.0-0.4) H 03/28/21 09:37 Baso # (Auto) 0.0 K/mm3 (0.0-0.1) 03/28/21 09:37 Add Manual Diff Complete 04/03/21 04:30 Total Counted 100 04/03/21 04:30 Seg Neutrophils % 80.0 % (40.0-70.0) H 03/28/21 09:37 Seg Neuts % (Manual) 44.0 % (40.0-70.0) 04/03/21 04:30 Lymphocytes % (Manual) 27.0 % (13.4-35.0) 04/03/21 04:30 Eosinophils % (Manual) 27.0 % (0.0-4.3) H 04/03/21 04:30 Basophils % (Manual) 2.0 % (0.0-1.8) H 04/03/21 04:30 Nucleated RBC % Not Reportable 04/03/21 04:30 Seg Neutrophils # 13.0 K/mm3 (1.8-7.7) H 03/28/21 09:37 Seg Neutrophils # Man 13.7 K/mm3 (1.8-7.7) H 04/03/21 04:30 Band Neutrophils # 0.0 K/mm3 04/03/21 04:30 Lymphocytes # (Manual) 8.4 K/mm3 (1.2-5.4) H 04/03/21 04:30 Abs React Lymphs (Man) 0.0 K/mm3 04/03/21 04:30 Monocytes # (Manual) 0.0 K/mm3 (0.0-0.8) 04/03/21 04:30 Eosinophils # (Manual) 8.4 K/mm3 (0.0-0.4) H 04/03/21 04:30 Basophils # (Manual) 0.6 K/mm3 (0.0-0.1) H 04/03/21 04:30 Metamyelocytes # 0.0 K/mm3 04/03/21 04:30 Myelocytes # 0.0 K/mm3 04/03/21 04:30 Promyelocytes # 0.0 K/mm3 04/03/21 04:30 Blast Cells # 0.0 K/mm3 04/03/21 04:30 WBC Morphology Not Reportable 04/03/21 04:30 Hypersegmented Neuts Not Reportable 04/03/21 04:30 Hyposegmented Neuts Not Reportable 04/03/21 04:30 Hypogranular Neuts Not Reportable 04/03/21 04:30 Smudge Cells Not Reportable 04/03/21 04:30 Toxic Granulation Not Reportable 04/03/21 04:30 Toxic Vacuolation Not Reportable 04/03/21 04:30 Dohle Bodies Not Reportable 04/03/21 04:30 Pelger-Huet Anomaly Not Reportable 04/03/21 04:30 Bridgette Rods Not Reportable 04/03/21 04:30 Platelet Estimate Not Reportable 04/03/21 04:30 Clumped Platelets Not Reportable 04/03/21 04:30 Plt Clumps, EDTA Not Reportable 04/03/21 04:30 Large Platelets Not Reportable 04/03/21 04:30 Giant Platelets Not Reportable 04/03/21 04:30 Platelet Satelliting Not Reportable 04/03/21 04:30 Plt Morphology Comment Not Reportable 04/03/21 04:30 RBC Morphology Normal 04/03/21 04:30 Dimorphic RBCs Not Reportable 04/03/21 04:30 Polychromasia Not Reportable 04/03/21 04:30 Hypochromasia Not Reportable 04/03/21 04:30 Poikilocytosis Not Reportable 04/03/21 04:30 Anisocytosis Not Reportable 04/03/21 04:30 Microcytosis Not Reportable 04/03/21 04:30 Macrocytosis Not Reportable 04/03/21 04:30 Spherocytes Not Reportable 04/03/21 04:30 Pappenheimer Bodies Not Reportable 04/03/21 04:30 Sickle Cells Not Reportable 04/03/21 04:30 Target Cells Not Reportable 04/03/21 04:30 Tear Drop Cells Not Reportable 04/03/21 04:30 Ovalocytes Not Reportable 04/03/21 04:30 Helmet Cells Not Reportable 04/03/21 04:30 Kebede-Niota Bodies Not Reportable 04/03/21 04:30 [place] Rings Not Reportable 04/03/21 04:30 Balaji Cells Not Reportable 04/03/21 04:30 Bite Cells Not Reportable 04/03/21 04:30 Crenated Cell Not Reportable 04/03/21 04:30 Elliptocytes Not Reportable 04/03/21 04:30 Acanthocytes (Spur) Not Reportable 04/03/21 04:30 Rouleaux Not Reportable 04/03/21 04:30 Hemoglobin C Crystals Not Reportable 04/03/21 04:30 Schistocytes Not Reportable 04/03/21 04:30 Malaria parasites Not Reportable 04/03/21 04:30 Percent Retic 4.52 % (0.78-2.58) H 03/31/21 09:49 Vaibhav Bodies Not Reportable 04/03/21 04:30 Hem Pathologist Commnt No 04/03/21 04:30 PT 13.9 Sec. (12.2-14.9) 04/04/21 07:55 INR 0.96 (0.87-1.13) 04/04/21 07:55 APTT 28.9 Sec. (24.2-36.6) 04/04/21 07:55 Fibrinogen 248 mg/dl (211-480) 04/02/21 04:00 D-Dimer 2607.12 ng/mlDDU (0-234) H 03/30/21 04:00 Heparin Anti-Xa, Unfract TNR 03/22/21 08:20 ABG pH 7.162 pH Units (7.350-7.450) L* 04/04/21 14:06 POC ABG pCO2 Cancelled 04/03/21 20:45 ABG pCO2 70.6 mm Hg 04/04/21 14:06 POC ABG pO2 Cancelled 04/03/21 20:45 ABG pO2 91.3 mm Hg (80.0-90.0) H 04/04/21 14:06 POC ABG HCO3 Cancelled 04/03/21 20:45 ABG HCO3 24.7 mmol/L (20.0-26.0) 04/04/21 14:06 ABG O2 Saturation 94.8 % (95.0-99.0) L 04/04/21 14:06 ABG O2 Content 10.0 (0.0-44) 04/04/21 14:06 POC ABG Base Excess Cancelled 04/03/21 20:45 ABG Base Excess -4.0 mmol/L (-2.0-3.0) L 04/04/21 14:06 ABG Hemoglobin 7.6 gm/dl (12.0-16.0) L 04/04/21 14:06 ABG Oxyhemoglobin Cancelled 04/03/21 20:45 ABG Carboxyhemoglobin 2.1 % (0.0-5.0) 04/04/21 14:06 ABG Methemoglobin 0.4 % (0.0-1.5) 04/04/21 14:06 ABG Sodium Cancelled 04/03/21 20:45 ABG Potassium Cancelled 04/03/21 20:45 ABG Chloride Cancelled 04/03/21 20:45 ABG Glucose Cancelled 04/03/21 20:45 ABG Lactate Cancelled 04/03/21 20:45 Oxyhemoglobin 92.4 % (95.0-99.0) L 04/04/21 14:06 Carboxyhemoglobin Cancelled 04/03/21 20:45 FiO2 60 % 04/04/21 14:06 FiO2 % Cancelled 04/03/21 20:45 Sodium 133 mmol/L (137-145) L 04/04/21 07:55 Potassium 4.0 mmol/L (3.6-5.0) D 04/04/21 07:55 Chloride 91.0 mmol/L (98-107) L 04/04/21 07:55 Carbon Dioxide 20 mmol/L (22-30) L 04/04/21 07:55 Anion Gap 26 mmol/L 04/04/21 07:55 BUN 75 mg/dL (7-17) H 04/04/21 07:55 Creatinine 4.7 mg/dL (0.6-1.2) H 04/04/21 07:55 Estimated GFR 13 ml/min 04/04/21 07:55 BUN/Creatinine Ratio 16 % 04/04/21 07:55 Glucose 184 mg/dL (65-100) H 04/04/21 07:55 POC Glucose 199 mg/dL (70-105) H 04/04/21 12:01 Hemoglobin A1c 6.3 % (4-6) H 03/15/21 05:09 Lactic Acid 2.00 mmol/L (0.7-2.0) 03/14/21 18:47 Calcium 7.3 mg/dL (8.4-10.2) L 04/04/21 07:55 Phosphorus 10.30 mg/dL (2.5-4.5) H 04/03/21 04:30 Magnesium 2.10 mg/dL (1.7-2.3) 04/03/21 04:30 Ferritin 151.6 ng/mL (10.0-200.0) 03/18/21 04:30 Total Bilirubin 0.70 mg/dL (0.1-1.2) 04/04/21 07:55 Bilirubin Cancelled 04/03/21 20:45 AST < 5 units/L (5-40) L 04/04/21 07:55 ALT < 5 units/L (7-56) L 04/04/21 07:55 Alkaline Phosphatase 200 units/L (35-129) H 04/04/21 07:55 Lactate Dehydrogenase 509 units/L (91-180) H 03/31/21 09:55 C-Reactive Protein 21.50 mg/dL (0.00-1.30) H 03/30/21 04:00 Total Protein 5.6 g/dL (6.3-8.2) L 04/04/21 07:55 Albumin 2.9 g/dL (3.9-5) L 04/04/21 07:55 Albumin/Globulin Ratio 1.1 % 04/04/21 07:55 Triglycerides 579 mg/dL (2-149) H 04/02/21 05:00 Procalcitonin < 0.05 ng/mL (<0.15) 03/13/21 15:40 HCG, Qual Negative (Negative) 03/13/21 13:26 Arterial Blood Glucose Cancelled 04/03/21 20:45 Arterial Blood Ionized Calcium Cancelled 04/03/21 20:45 Urine Creatinine 40.1 mg/dL (0.1-20.0) H 03/14/21 17:50 Urine Sodium 124 mmol/L 03/14/21 17:50 Random Vancomycin 11.2 ug/mL (0-40.0) 03/20/21 04:23 Heparin-induced Plt Ab Negative (Negative) 03/22/21 08:20 UF Heparin High Dose TNR 03/22/21 08:20 JUAN UFH Low Dose 0.1 TNR 03/22/21 08:20 JUAN UFH Low Dose 0.5 TNR 03/22/21 08:20 Coronavirus (PCR) Negative (Negative) 04/04/21 09:00 Hepatitis A IgM Ab Non-reactive (NonReactive) 03/15/21 05:09 Hep Bs Antigen Nonreactive (Negative) 03/15/21 05:09 Hep B Core IgM Ab Non-reactive (NonReactive) 03/15/21 05:09 Hepatitis C Antibody Non-reactive (NonReactive) 03/15/21 05:09 Schistocytes Smear None seen 03/31/21 12:11 Blood Type O POSITIVE 04/04/21 09:20 Antibody Screen Negative 04/04/21 09:20 Direct Antiglob Test Negative 03/31/21 23:18 NIKOLE, Poly Interpret Negative 03/31/21 23:18 Crossmatch See Detail 04/04/21 09:20 Microbiology: Microbiology 03/29/21 23:26 Peripheral/Venous Blood Culture - Final NO GROWTH AFTER 5 DAYS 03/29/21 23:30 Peripheral/Venous Blood Culture - Final NO GROWTH AFTER 5 DAYS Bazan/IV: Voiding Method Incontinent Active Medications - Current Medications Current Medications: Generic Name Dose Route Start Last Admin Trade Name Freq PRN Reason Stop Dose Admin Acetaminophen 650 mg 03/31/21 12:41 04/04/21 09:50 Acetaminophen 325 Mg/10.15 Ml Oral Liqd Unit Dose FEEDTUBE 650 mg Q6H PRN Administration TEMP >/=100.4 Albumin Human 25 gm 04/01/21 08:19 04/01/21 16:23 Albumin Human 25% (25 Gm/100 Ml) Inj IV 25 gm KARLOS PRN Administration Hypotension Albuterol 2.5 mg 03/19/21 00:53 Albuterol 2.5 Mg/3 Ml Nebu IH Q4HRT PRN Shortness Of Breath Albuterol/Ipratropium 1 ampul 03/19/21 08:00 04/04/21 14:32 Ipratropium/Albuterol Sulfate 3 Ml Ampul.Neb IH 1 ampul Q6HRT INESSA Administration Lipase/Protease/Amylase 1 each 03/15/21 11:42 Lipase 10,500/Protease 25,000/Amylase 43,750 (Units) Dr Cap FEEDTUBE PRN PRN For Clogged Feeding Tube Apixaban 2.5 mg 03/29/21 13:00 04/04/21 09:50 Apixaban 2.5 Mg Tab PO 2.5 mg Q12HR INESSA Administration Protocol Ascorbic Acid 500 mg 03/14/21 22:00 04/04/21 09:50 Ascorbic Acid 500 Mg Tab PO 500 mg BID INESSA Administration Calcium Acetate 1,334 mg 04/03/21 20:00 04/04/21 13:20 Calcium Acetate 667 Mg Cap FEEDTUBE 1,334 mg TID INESSA Administration Dextrose 50 ml 03/14/21 11:02 03/15/21 11:40 Dextrose 50% In Water (25gm) 50 Ml Syringe IV 50 ml Q30MIN PRN Administration Hypoglycemia Protocol Famotidine 10 mg 03/17/21 22:00 04/04/21 09:50 Famotidine 10 Mg Tab PO 10 mg BID INESSA Administration Fentanyl 50 mcg 03/15/21 10:43 03/28/21 09:25 Fentanyl 100 Mcg/2 Ml Inj IV 50 mcg Q10MIN PRN Administration ANALGESIA Hydrophilic Ointment 1 applic 03/14/21 17:50 Lip Therapy Vaseline TP Q2HR PRN Dry Lips Propofol 1,000 mg in 100 mls @ 4.123 mls/hr 03/15/21 11:00 04/04/21 15:23 Diprivan 10 Mg/Ml IV 35 mcg/kg/min TITR INESSA 28.862 mls/hr Titration Protocol 5 MCG/KG/MIN Fentanyl Citrate 2,000 mcg in 100 mls @ 6.872 mls/hr 03/15/21 11:00 04/04/21 12:47 Fentanyl Drip Premix IV 4 mcg/kg/hr TITR INESSA 27.488 mls/hr Administration Protocol 1 MCG/KG/HR Sodium Chloride 500 mls @ 1 mls/hr 03/16/21 17:19 Nacl 0.9% 500 Ml IV DIRECT PRN ARTERIAL LINE FLUSH NORepinephrine/NS 8 MG-250 ML 8 mg in 250 mls @ 3.75 mls/hr 03/23/21 11:00 04/04/21 15:56 Norepinephrine/Ns 8 Mg-250 Ml (Double Conc) IV 20 mcg/min TITRATE INESSA 37.5 mls/hr Titration Protocol 2 MCG/MIN Midazolam HCl 100 mg/ Sodium 100 mls @ 1 mls/hr 03/30/21 15:00 04/04/21 15:57 Chloride IV 7 mg/hr TITR INESSA 7 mls/hr Titration Protocol 1 MG/HR Vasopressin 20 unit/ Sodium 101 mls @ 9.09 mls/hr 03/30/21 20:00 04/04/21 07:34 Chloride IV 0.03 units/min TITR INESSA 9.09 mls/hr Administration 0.03 UNITS/MIN Phenylephrine HCl 100 mg/ 100 mls @ 3 mls/hr 03/31/21 04:00 04/04/21 15:54 Sodium Chloride IV 100 mcg/min TITR INESSA 6 mls/hr Administration Protocol 50 MCG/MIN Sodium Chloride 100 mls @ 999 mls/hr 04/01/21 08:19 Nacl 0.9% IV KARLOS PRN Hypotension Sodium Bicarbonate 150 meq/ 1,150 mls @ 75 mls/hr 04/02/21 22:00 04/03/21 13:42 Dextrose IV 75 mls/hr DIRECT INESSA Administration Sodium Chloride 500 mls @ 0 mls/hr 04/04/21 08:40 Nacl 0.9% 500 Ml IV 04/04/21 20:00 ONCE NR As Directed Insulin Human Lispro 0 unit 03/14/21 12:00 04/04/21 12:42 Insulin Lispro 100 Unit/Ml SUB-Q 2 unit Q6HR INESSA Administration Protocol Lorazepam 1 mg 03/13/21 19:40 03/30/21 19:58 Lorazepam 2 Mg/Ml Vial IV 1 mg Q4H PRN Administration Anxiety Methylprednisolone Sodium Succinate 80 mg 04/04/21 22:00 Methylprednisolone Sod Succinate 125 Mg/2 Ml Inj IV Q8HR INESSA Midazolam HCl 2 mg 03/30/21 14:19 03/30/21 14:30 Midazolam 2 Mg/2 Ml Inj IV 2 mg Q10MIN PRN Administration Sedation Multi-Ingred Cream/Lotion/Oil/Oint 1 applic 03/14/21 17:50 04/02/21 14:31 Mineral Oil/Petrolatum, White Ophth Oint 3.5 Gm OU 1 applic Q4HR PRN Administration Dry Eye(s) Ondansetron HCl 4 mg 03/13/21 19:30 03/21/21 12:05 Ondansetron 4 Mg/2 Ml Inj IV 4 mg Q8H PRN Administration Nausea And Vomiting Quetiapine Fumarate 100 mg 04/04/21 14:00 04/04/21 14:35 Quetiapine 100 Mg Tab PO 100 mg BID INESSA Administration Quetiapine Fumarate 50 mg 04/04/21 14:00 04/04/21 14:35 Quetiapine 25 Mg Tab PO 50 mg BID INESSA Administration Senna/Docusate Sodium 1 tab 03/14/21 22:00 04/04/21 09:50 Sennosides/Docusate Sodium 8.6/50 Mg Tab FEEDTUBE 1 tab BID INESSA Administration Simple Syrup 15 ml 03/15/21 11:42 Simple Syrup 15 Ml FEEDTUBE PRN PRN Hypoglycemia Simple Syrup 30 ml 03/15/21 11:42 Simple Syrup 15 Ml FEEDTUBE PRN PRN Hypoglycemia Sodium Bicarbonate 325 mg 03/15/21 11:42 03/21/21 17:21 Sodium Bicarbonate 325 Mg Tab FEEDTUBE 325 mg PRN PRN Administration For Clogged Feeding Tube Sodium Chloride 10 ml 03/13/21 22:00 04/04/21 09:51 Sodium Chloride 0.9% 10 Ml Flush Syringe IV 10 ml BID INESSA Administration Sodium Chloride 10 ml 03/13/21 19:30 Sodium Chloride 0.9% 10 Ml Flush Syringe IV PRN PRN LINE FLUSH Zinc Sulfate 220 mg 03/14/21 22:00 04/04/21 09:49 Zinc Sulfate 220 Mg Cap PO 220 mg BID INESSA Administration Nutrition/Malnutrition Assess - Dietary Evaluation Nutrition/Malnutrition Findings: Nutrition Notes Start: 03/15/21 11:06 Freq: Status: Active Protocol: Document 04/02/21 15:08 REJI (Rec: 04/02/21 15:19 REJI [id number]) Nutrition Notes Initial or Follow up Reassessment Current Diagnosis Acute Kidney Injury, Hypertension,Respiratory Failure Other Pertinent Diagnosis COVID-19 pneu, periorbital edema Current Diet TF - Nepro at 44ml/hr Labs/Tests Na 132 K 5.3 BUN 80 Cr 6.8 BG 174 Triglycerides 579 Pertinent Medications Propofol at 32.985ml/hr ( provides 871 kcal), Human Albumin, Solumedrol, Levophed gtt, Phenylephrine gtt, Vasopressin gtt, Kionex Height 5 ft 5 in Weight 137.438 kg [place] Body Weight (kg) 56.81 BMI 50.4 Weight Status Morbidly Obese Subjective/Other Information Spoke with pt's RN via phone at 15:06. Pt tolerating TF at goal rate, despite being on three pressors. Per RN, been able to decrease pressor concentration. Pt been spiking a fever for past few days; Artic sun blanket in place to lower body temperature. Pt remains on vent support. Percent of energy/protein needs met: 99% energy 73% pro Burn Absent Trauma Absent Minimum of two criteria No #1 Nutrition Diagnosis Swallowing difficulty Diagnosis Progress(for reassessment Continues documentation) Is patient on ventilator? Yes Is Patient Ambulatory and/or Out of Bed No REE-([facility]-confined to bed) 2515.536 Kcal/Kg value to use for calculation 14 Approximate Energy Requirements Using 1924 kcal/Kg Calculation Used for Recommendations Kcal/kg Additional Notes Pro needs >1.2g/kg adjBW: > 117g/day Fluid needs 1-1.5L/day Nutrition Intervention Nutrition Support: Continue Nepro at 44ml/hr. Provide 120ml water flush q4h Kcal 1,901 Protein (gm) 86 Carbohydrates (gm) 170 Fat (gm) 101 Fluid (mL) 768 Fiber (gm) 13 Goal #1 TF tolerance Goal #2 TF to meet at least 75% energy and pro needs Follow-Up By: 04/09/21 Additional Comments F/U: stable TF, vent status, wt, propofol, pressor support, rectal tube <SAURABH ALBRECHT - Last Filed: 04/15/21 07:31> Assessment and Plan Assessment and plan: I saw and evaluated the patient. Discussed with the nurse practitioner and agree with their findings and plan as documented in this note. Hospitalist Physical - Constitutional Vitals: Temp Pulse Resp BP Pulse Ox 102.0 F H 137 H 20 140/76 100 04/15/21 04:00 04/15/21 06:00 04/15/21 06:00 04/15/21 06:00 04/15/21 06:00 Results - Labs CBC & Chem 7: 04/15/21 Unknown 04/15/21 Unknown Labs: Laboratory Last Values WBC 11.8 K/mm3 (4.5-11.0) H 04/15/21 Unknown RBC 2.41 M/mm3 (3.65-5.03) L 04/15/21 Unknown Hgb 7.1 gm/dl (10.1-14.3) L 04/15/21 Unknown Hct 22.4 % (30.3-42.9) L 04/15/21 Unknown MCV 93 fl (79-97) 04/15/21 Unknown MCH 29 pg (28-32) 04/15/21 Unknown MCHC 32 % (30-34) 04/15/21 Unknown RDW 17.0 % (13.2-15.2) H 04/15/21 Unknown Plt Count 38 K/mm3 (140-440) L 04/15/21 Unknown Lymph % (Auto) 10.7 % (13.4-35.0) L 03/28/21 09:37 [place] % (Auto) 5.2 % (0.0-7.3) 03/28/21 09:37 Eos % (Auto) Tie Puller 04/07/21 03:50 Baso % (Auto) 0.2 % (0.0-1.8) 03/28/21 09:37 Lymph # (Auto) 1.7 K/mm3 (1.2-5.4) 03/28/21 09:37 [place] # (Auto) 0.9 K/mm3 (0.0-0.8) H 03/28/21 09:37 Eos # (Auto) 0.6 K/mm3 (0.0-0.4) H 03/28/21 09:37 Baso # (Auto) 0.0 K/mm3 (0.0-0.1) 03/28/21 09:37 Add Manual Diff Complete 04/07/21 03:50 Total Counted 100 04/07/21 03:50 Seg Neutrophils % 80.0 % (40.0-70.0) H 03/28/21 09:37 Seg Neuts % (Manual) 67.0 % (40.0-70.0) 04/07/21 03:50 Lymphocytes % (Manual) 10.0 % (13.4-35.0) L 04/07/21 03:50 Monocytes % (Manual) 4.0 % (0.0-7.3) 04/07/21 03:50 Eosinophils % (Manual) 19.0 % (0.0-4.3) H 04/07/21 03:50 Basophils % (Manual) 2.0 % (0.0-1.8) H 04/03/21 04:30 Nucleated RBC % 2.0 % (0.0-0.9) H 04/07/21 03:50 Seg Neutrophils # 13.0 K/mm3 (1.8-7.7) H 03/28/21 09:37 Seg Neutrophils # Man 17.9 K/mm3 (1.8-7.7) H 04/07/21 03:50 Band Neutrophils # 0.0 K/mm3 04/07/21 03:50 Lymphocytes # (Manual) 2.7 K/mm3 (1.2-5.4) 04/07/21 03:50 Abs React Lymphs (Man) 0.0 K/mm3 04/07/21 03:50 Monocytes # (Manual) 1.1 K/mm3 (0.0-0.8) H 04/07/21 03:50 Eosinophils # (Manual) 5.1 K/mm3 (0.0-0.4) H 04/07/21 03:50 Basophils # (Manual) 0.0 K/mm3 (0.0-0.1) 04/07/21 03:50 Metamyelocytes # 0.0 K/mm3 04/07/21 03:50 Myelocytes # 0.0 K/mm3 04/07/21 03:50 Promyelocytes # 0.0 K/mm3 04/07/21 03:50 Blast Cells # 0.0 K/mm3 04/07/21 03:50 WBC Morphology Not Reportable 04/07/21 03:50 Hypersegmented Neuts Not Reportable 04/07/21 03:50 Hyposegmented Neuts Not Reportable 04/07/21 03:50 Hypogranular Neuts Not Reportable 04/07/21 03:50 Smudge Cells Not Reportable 04/07/21 03:50 Toxic Granulation Not Reportable 04/07/21 03:50 Toxic Vacuolation Not Reportable 04/07/21 03:50 Dohle Bodies Not Reportable 04/07/21 03:50 Pelger-Huet Anomaly Not Reportable 04/07/21 03:50 Bridgette Rods Not Reportable 04/07/21 03:50 Platelet Estimate Consistent w auto 04/07/21 03:50 Clumped Platelets Not Reportable 04/07/21 03:50 Plt Clumps, EDTA Not Reportable 04/07/21 03:50 Large Platelets Not Reportable 04/07/21 03:50 Giant Platelets Not Reportable 04/07/21 03:50 Platelet Satelliting Not Reportable 04/07/21 03:50 Plt Morphology Comment Not Reportable 04/07/21 03:50 RBC Morphology Not Reportable 04/07/21 03:50 Dimorphic RBCs Not Reportable 04/07/21 03:50 Polychromasia Not Reportable 04/07/21 03:50 Hypochromasia Not Reportable 04/07/21 03:50 Poikilocytosis Not Reportable 04/07/21 03:50 Anisocytosis 1+ 04/07/21 03:50 Microcytosis Not Reportable 04/07/21 03:50 Macrocytosis Not Reportable 04/07/21 03:50 Spherocytes Not Reportable 04/07/21 03:50 Pappenheimer Bodies Not Reportable 04/07/21 03:50 Sickle Cells Not Reportable 04/07/21 03:50 Target Cells 1+ 04/07/21 03:50 Tear Drop Cells Not Reportable 04/07/21 03:50 Ovalocytes Not Reportable 04/07/21 03:50 Helmet Cells Not Reportable 04/07/21 03:50 Kebede-Niota Bodies Not Reportable 04/07/21 03:50 [place] Rings Not Reportable 04/07/21 03:50 Balaji Cells Not Reportable 04/07/21 03:50 Bite Cells Not Reportable 04/07/21 03:50 Crenated Cell Not Reportable 04/07/21 03:50 Elliptocytes Not Reportable 04/07/21 03:50 Acanthocytes (Spur) Not Reportable 04/07/21 03:50 Rouleaux Not Reportable 04/07/21 03:50 Hemoglobin C Crystals Not Reportable 04/07/21 03:50 Schistocytes Not Reportable 04/07/21 03:50 Malaria parasites Not Reportable 04/07/21 03:50 Percent Retic 4.52 % (0.78-2.58) H 03/31/21 09:49 Vaibhav Bodies Not Reportable 04/07/21 03:50 Hem Pathologist Commnt No 04/07/21 03:50 PT 16.3 Sec. (12.2-14.9) H 04/15/21 Unknown INR 1.18 (0.87-1.13) H 04/15/21 Unknown APTT 28.9 Sec. (24.2-36.6) 04/04/21 07:55 Fibrinogen 400 mg/dl (211-480) 04/14/21 09:45 D-Dimer 2696.79 ng/mlDDU (0-234) H 04/08/21 04:40 Heparin Anti-Xa, Unfract TNR 03/22/21 08:20 ABG pH 7.207 (7.320-7.450) L 04/14/21 21:00 POC ABG pCO2 67.6 mmHg (32.0-48.0) H 04/14/21 21:00 ABG pCO2 68.6 mm Hg 04/13/21 03:52 POC ABG pO2 143.7 mmHg (83-108) H 04/14/21 21:00 ABG pO2 98.9 mm Hg (80.0-90.0) H 04/13/21 03:52 POC ABG HCO3 26.2 04/14/21 21:00 ABG HCO3 25.5 mmol/L (20.0-26.0) 04/13/21 03:52 ABG O2 Saturation 98.8 (0-100) 04/14/21 21:00 ABG O2 Content 10.0 (0.0-44) 04/13/21 03:52 POC ABG Base Excess -1.9 04/14/21 21:00 ABG Base Excess -2.9 mmol/L (-2.0-3.0) L 04/13/21 03:52 ABG Hemoglobin 7.6 (12.0-17.5) L 04/14/21 21:00 ABG Oxyhemoglobin 97.6 (94-98) 04/14/21 21:00 ABG Carboxyhemoglobin 1.9 % (0.0-5.0) 04/13/21 03:52 ABG Methemoglobin 0.1 (0.0-1.5) 04/14/21 21:00 ABG Sodium 133.8 mmol/L (136.0-145.0) L 04/14/21 21:00 ABG Potassium 4.0 mmol/L (3.40-4.50) 04/14/21 21:00 ABG Chloride 101.0 mmol/L (98-107) 04/14/21 21:00 ABG Glucose 158 mg/dL (65-95) H 04/14/21 21:00 ABG Lactate Cancelled 04/03/21 20:45 Oxyhemoglobin 94.3 % (95.0-99.0) L 04/13/21 03:52 Carboxyhemoglobin 1.1 (0.5-1.5) 04/14/21 21:00 FiO2 65 % 04/13/21 03:52 FiO2 % 80.0 04/14/21 21:00 Sodium 137 mmol/L (137-145) 04/15/21 Unknown Potassium 4.3 mmol/L (3.6-5.0) 04/15/21 Unknown Chloride 98.5 mmol/L (98-107) 04/15/21 Unknown Carbon Dioxide 24 mmol/L (22-30) 04/15/21 Unknown Anion Gap 19 mmol/L 04/15/21 Unknown BUN 67 mg/dL (7-17) H 04/15/21 Unknown Creatinine 3.3 mg/dL (0.6-1.2) H 04/15/21 Unknown Estimated GFR 20 ml/min 04/15/21 Unknown BUN/Creatinine Ratio 20 % 04/15/21 Unknown Glucose 155 mg/dL (65-100) H 04/15/21 Unknown POC Glucose 147 mg/dL (70-105) H 04/14/21 23:53 Hemoglobin A1c 6.3 % (4-6) H 03/15/21 05:09 Lactic Acid 0.80 mmol/L (0.7-2.0) 04/07/21 03:50 Calcium 8.3 mg/dL (8.4-10.2) L 04/15/21 Unknown Phosphorus 5.70 mg/dL (2.5-4.5) H 04/15/21 Unknown Magnesium 1.90 mg/dL (1.7-2.3) 04/15/21 Unknown Ferritin 151.6 ng/mL (10.0-200.0) 03/18/21 04:30 Total Bilirubin 0.40 mg/dL (0.1-1.2) 04/15/21 Unknown Bilirubin Cancelled 04/03/21 20:45 AST 85 units/L (5-40) H 04/15/21 Unknown ALT 63 units/L (7-56) H 04/15/21 Unknown Alkaline Phosphatase 94 units/L (35-129) 04/15/21 Unknown Lactate Dehydrogenase 394 units/L (91-180) H 04/05/21 05:20 C-Reactive Protein 26.10 mg/dL (0.00-1.30) H 04/08/21 04:00 Total Protein 6.3 g/dL (6.3-8.2) 04/15/21 Unknown Albumin 2.4 g/dL (3.9-5) L 04/15/21 Unknown Albumin/Globulin Ratio 0.6 % 04/15/21 Unknown Triglycerides 406 mg/dL (2-149) H 04/11/21 04:15 Serotonin Release Assay TNR 03/22/21 08:20 Procalcitonin < 0.05 ng/mL (<0.15) 03/13/21 15:40 HCG, Qual Negative (Negative) 03/13/21 13:26 Arterial Blood Glucose 158 mg/dL (65-95) H 04/14/21 21:00 Arterial Blood Ionized Calcium 4.7 mg/dL (4.6-5.3) 04/14/21 21:00 Urine Color Sweta (Yellow) 04/06/21 Unknown Urine Turbidity Cloudy (Clear) 04/06/21 Unknown Urine pH 5.0 (5.0-7.0) 04/06/21 Unknown Ur Specific [place] 1.020 (1.003-1.030) 04/06/21 Unknown Urine Protein 100 mg/dl mg/dL (Negative) 04/06/21 Unknown Urine Glucose (UA) Neg mg/dL (Negative) 04/06/21 Unknown Urine Ketones Neg mg/dL (Negative) 04/06/21 Unknown Urine Blood Mod (Negative) 04/06/21 Unknown Urine Nitrite Neg (Negative) 04/06/21 Unknown Urine Bilirubin Neg (Negative) 04/06/21 Unknown Urine Urobilinogen < 2.0 mg/dL (<2.0) 04/06/21 Unknown Ur Leukocyte Esterase Neg (Negative) 04/06/21 Unknown Urine WBC (Auto) 148.0 /HPF (0.0-6.0) H 04/06/21 Unknown Urine RBC (Auto) > 182.0 /HPF (0.0-6.0) 04/06/21 Unknown U Epithel Cells (Auto) 102.0 /HPF (0-13.0) H 04/06/21 Unknown Urine Bacteria (Auto) 1+ /HPF (Negative) 04/06/21 Unknown Ur Renal Epithelial Cell 151 /LPF 04/06/21 Unknown Urine Mucus Few /HPF 04/06/21 Unknown Urine Yeast (Budding) 3+ /HPF 04/06/21 Unknown Urine Creatinine 40.1 mg/dL (0.1-20.0) H 03/14/21 17:50 Urine Sodium 124 mmol/L 03/14/21 17:50 Random Vancomycin 13.6 ug/mL (0-40.0) 04/12/21 04:30 KIMBERLEY Screen Negative (Negative) 04/07/21 08:27 Heparin-induced Plt Ab Negative (Negative) 03/22/21 08:20 UF Heparin High Dose TNR 03/22/21 08:20 JUAN UFH Low Dose 0.1 TNR 03/22/21 08:20 JUAN UFH Low Dose 0.5 TNR 03/22/21 08:20 Coronavirus (PCR) Negative (Negative) 04/04/21 09:00 Hepatitis A IgM Ab Non-reactive (NonReactive) 03/15/21 05:09 Hep Bs Antigen Nonreactive (Negative) 03/15/21 05:09 Hep B Core IgM Ab Non-reactive (NonReactive) 03/15/21 05:09 Hepatitis C Antibody Non-reactive (NonReactive) 03/15/21 05:09 Schistocytes Smear None seen 03/31/21 12:11 Blood Type O POSITIVE 04/11/21 13:39 Antibody Screen Negative 04/11/21 13:39 Direct Antiglob Test Negative 03/31/21 23:18 NIKOLE, Poly Interpret Negative 03/31/21 23:18 Crossmatch See Detail 04/11/21 13:39 Microbiology: Microbiology 04/11/21 15:05 Bronchial Washings - Left Upper Lobe Respiratory Culture - Preliminary Enterococcus Species Bazan/IV: Voiding Method Incontinent Active Medications - Current Medications Current Medications: Generic Name Dose Route Start Last Admin Trade Name Freq PRN Reason Stop Dose Admin Acetaminophen 650 mg 03/31/21 12:41 04/15/21 05:55 Acetaminophen 325 Mg/10.15 Ml Oral Liqd Unit Dose FEEDTUBE 650 mg Q6H PRN Administration TEMP >/=100.4 Albumin Human 25 gm 04/01/21 08:19 04/01/21 16:23 Albumin Human 25% (25 Gm/100 Ml) Inj IV 25 gm KARLOS PRN Administration Hypotension Albuterol 2.5 mg 03/19/21 00:53 Albuterol 2.5 Mg/3 Ml Nebu IH Q4HRT PRN Shortness Of Breath Albuterol/Ipratropium 1 ampul 03/19/21 08:00 04/15/21 02:11 Ipratropium/Albuterol Sulfate 3 Ml Ampul.Neb IH Not Given Q6HRT INESSA Lipase/Protease/Amylase 1 each 04/09/21 17:17 Lipase 10,500/Protease 25,000/Amylase 43,750 (Units) Cap FEEDTUBE PRN PRN For Clogged Feeding Tube Calcium Acetate 1,334 mg 04/03/21 20:00 04/14/21 22:05 Calcium Acetate 667 Mg Cap FEEDTUBE 1,334 mg TID INESSA Administration Dextrose 50 ml 03/14/21 11:02 03/15/21 11:40 Dextrose 50% In Water (25gm) 50 Ml Syringe IV 50 ml Q30MIN PRN Administration Hypoglycemia Protocol Famotidine 10 mg 03/17/21 22:00 04/14/21 22:04 Famotidine 10 Mg Tab PO 10 mg BID INESSA Administration Fentanyl 50 mcg 03/15/21 10:43 04/05/21 21:32 Fentanyl 100 Mcg/2 Ml Inj IV 50 mcg Q10MIN PRN Administration ANALGESIA Hydrocortisone Sodium Succinate 100 mg 04/10/21 00:00 04/15/21 00:19 Hydrocortisone Sod Succ 100 Mg/2 Ml Vial IV 100 mg Q8H INESSA Administration Hydrophilic Ointment 1 applic 03/14/21 17:50 Lip Therapy Vaseline TP Q2HR PRN Dry Lips Fentanyl Citrate 2,000 mcg in 100 mls @ 6.872 mls/hr 03/15/21 11:00 04/15/21 07:09 Fentanyl Drip Premix IV 4 mcg/kg/hr TITR INESSA 27.488 mls/hr Administration Protocol 1 MCG/KG/HR Sodium Chloride 500 mls @ 1 mls/hr 03/16/21 17:19 Nacl 0.9% 500 Ml IV DIRECT PRN ARTERIAL LINE FLUSH Midazolam HCl 100 mg/ Sodium 100 mls @ 1 mls/hr 03/30/21 15:00 04/14/21 15:45 Chloride IV 4 mg/hr TITR INESSA 4 mls/hr Titration Protocol 1 MG/HR Vasopressin 20 unit/ Sodium 101 mls @ 9.09 mls/hr 03/30/21 20:00 04/15/21 07:13 Chloride IV 0.03 units/min TITR INESSA 9.09 mls/hr Infusion 0.03 UNITS/MIN Phenylephrine HCl 100 mg/ 100 mls @ 3 mls/hr 03/31/21 04:00 04/06/21 07:58 Sodium Chloride IV 0 mcg/min TITR INESSA 0 mls/hr Titration Protocol 50 MCG/MIN Sodium Chloride 100 mls @ 999 mls/hr 04/01/21 08:19 Nacl 0.9% IV KARLOS PRN Hypotension Propofol 1,000 mg in 100 mls @ 4.26 mls/hr 04/07/21 13:00 04/12/21 12:52 Diprivan 10 Mg/Ml IV 0 mcg/kg/min TITR INESSA 0 mls/hr Titration Protocol 5 MCG/KG/MIN Micafungin Sodium 100 mg/ 100 mls @ 100 mls/hr 04/09/21 17:00 04/14/21 17:40 Sodium Chloride IV 100 mls/hr Q24H INESSA Administration Protocol Norepinephrine 8 mg/ Sodium 8 mg in 258 mls @ 3.87 mls/hr 04/12/21 04:00 04/14/21 17:39 Chloride IV 0 mcg/min TITRATE INESSA 0 mls/hr Titration Protocol 2 MCG/MIN MEROPENEM/NS 1 GRAM/100 ML 1 gram in 100 mls @ 100 mls/hr 04/12/21 22:00 04/14/21 22:05 Merrem/Ns 1 Gram/100 Ml IV 100 mls/hr Q24H INESSA Administration Protocol Sodium Chloride 1,000 mls @ 1 mls/hr 04/14/21 16:45 04/14/21 16:57 Nacl 0.9% 1000 Ml IV 1 mls/hr DIRECT INESSA Administration Insulin Human Lispro 0 unit 03/14/21 12:00 04/15/21 06:07 Insulin Lispro 100 Unit/Ml SUB-Q Not Given Q6HR INESSA Protocol Lorazepam 1 mg 03/13/21 19:40 03/30/21 19:58 Lorazepam 2 Mg/Ml Vial IV 1 mg Q4H PRN Administration Anxiety Multi-Ingred Cream/Lotion/Oil/Oint 1 applic 03/14/21 17:50 04/10/21 22:03 Mineral Oil/Petrolatum, White Ophth Oint 3.5 Gm OU 1 applic Q4HR PRN Administration Dry Eye(s) Ondansetron HCl 4 mg 03/13/21 19:30 03/21/21 12:05 Ondansetron 4 Mg/2 Ml Inj IV 4 mg Q8H PRN Administration Nausea And Vomiting Quetiapine Fumarate 300 mg 04/06/21 22:00 04/14/21 22:05 Quetiapine 100 Mg Tab PO 300 mg BID INESSA Administration Senna/Docusate Sodium 1 tab 03/14/21 22:00 04/14/21 22:06 Sennosides/Docusate Sodium 8.6/50 Mg Tab FEEDTUBE Not Given BID INESSA Simple Syrup 15 ml 04/09/21 17:17 Simple Syrup 15 Ml FEEDTUBE PRN PRN Hypoglycemia Simple Syrup 30 ml 04/09/21 17:17 Simple Syrup 15 Ml FEEDTUBE PRN PRN Hypoglycemia Sodium Bicarbonate 325 mg 04/09/21 17:17 Sodium Bicarbonate 325 Mg Tab FEEDTUBE PRN PRN For Clogged Feeding Tube Sodium Chloride 10 ml 03/13/21 22:00 04/14/21 22:17 Sodium Chloride 0.9% 10 Ml Flush Syringe IV 10 ml BID INESSA Administration Sodium Chloride 10 ml 03/13/21 19:30 Sodium Chloride 0.9% 10 Ml Flush Syringe IV PRN PRN LINE FLUSH Nutrition/Malnutrition Assess - Dietary Evaluation Nutrition/Malnutrition Findings: Nutrition Notes Start: 03/15/21 11:06 Freq: Status: Active Protocol: Document 04/14/21 11:13 CANDACE (Rec: 04/14/21 11:52 CANDACE [id number]) Nutrition Notes Initial or Follow up Reassessment Other Pertinent Diagnosis [id number], Transaminitis, Hyperglycemia. Current Diet TF -Glucerna 1.2 Abdullahi (since L 04/14). Labs/Tests 04/14: BUN 74, Crea 3.1, Glu 220. Pertinent Medications 04/14 Vit C, D50w (25 g) mEq, Insulin, Zn, Propofol 1,000 mg /100 ml @ 4.26 ml/hr, others nutritionally unremarkable. Height 5 ft 5 in Weight 142 kg [place] Body Weight (kg) 56.81 BMI 52.0 Weight change and time frame No new reports on body weight changes, Weight Status Morbidly Obese Subjective/Other Information RD consult on change TF from Nepro w/CARBSTEADY to Glucerna 1,2 Abdullahi, due to lack of stock Nepro. Percent of energy/protein needs met: 100% Kcal; 85% AA. Burn Absent Trauma Absent GI Symptoms None Food Allergy No Skin Integrity/Comment Clear, warm, dry. Current % PO Other Minimum of two criteria No Is patient on ventilator? Yes Is Patient Ambulatory and/or Out of Bed No REE-([facility]-confined to bed) 2570.232 Kcal/Kg value to use for calculation 14 Approximate Energy Requirements Using 1988 kcal/Kg Calculation Used for Recommendations Kcal/kg Additional Notes Pro needs >1.2g/kg adjBW: > 117g/day Fluid needs 1-1.5L/day Nutrition Intervention Nutrition Support: Change to Glucerna 1.2 Abdullahi @ 69 ml/hr. Flush: 109 ml water Q 4 hr. Kcal 1,988 Protein (gm) 99 Carbohydrates (gm) 190 Fat (gm) 99 Fluid (mL) 1,334 Fiber (gm) 27 % RDI: 100% Kcal; 85% AA. Goal #1 Maintain body weight within +/ -3% of admission BWt during LOS. Goal #2 Reach and maintain acceptable chemistry lab values during LOS. Follow-Up By: 04/16/21 Additional Comments Continue monitoring TF tolerance, Hydration, and BM.
--- NOTE | 2021-04-04 16:35 | Progress Note ---
<CRISTY PASCUAL - Last Filed: 04/04/21 16:35> Assessment and Plan Assessment and plan: This is a 31-year-old female with asthma, morbid obesity and Crohn's disease admitted for COVID-19 pneumonia and and acute renal failure Neuro: Sedated -Intubated and sedated on propofol and fentanyl and versed -sedation to vent synchrony -Daily SAT/SBT when appropriate -Maintain sleep-wake cycle -Avoid delirium CV: Tachycardia, s/p hypertension now with hypotension -ST on the monitor -Vasopressor support with levophed, vasopressin and Anthony-Synephrine -Maintain MAP above 65 -Blood pressure monitoring via A-line Respiratory: Acute hypoxic respiratory failure, asthma exacerbation, COVID-19 pneumonia, ARDS, RUL PNA, bronchospasm (resolved) -DuoNeb, steroids -Patient was intubated on 03/14 for respiratory distress and inability to protect airway -Intubated with 7.50 ETT at 24 at the lip -A.m. vent settings: PCV Rate 30, PEEP 10, FiO2 50%, PIP 28 -See RT notes for titration -ABGs per CCM -VAP bundle -SPO2 monitoring -CCM/pulmonary consulted, appreciate recommendations -S/p BiPAP therapy GI: transaminitis, h/o MO and Crohn's disease -Nutrition consulted, appreciate recommendations -Tube feeding: Nepro -Free water 100 mL every 4 hours -BR: [place] -PPI -24 hours +2680 ml -BMS in place : Acute kidney injury likely secondary to ATN, hyperphosphatemia, hyperkalemia, hyponatremia, hypochloremia, metabolic acidosis -Nephrology consulted, appreciate recommendations -Vas-Cath placed 03/15 -HD initiated 03/15 -Daily weights -Strict intake and output -Avoid nephrotoxic medications -Renally dose medications -Trend BMP -Intervene for electrolytes as needed -HD per nephrology -Bicarb gtt for 2 liters ID: COVID-19 pneumonia, leukocytosis, Staph aureus in tracheal aspirate, Conjunctival hemorrhage, ?HUS vs drug reaction -Infectious disease consulted, appreciate recommendations -03/14 COVID-19 PCR (+), 04/10 COVID PCR (-) -IV steroid -03/31 1g methylprednisone for 3 days -taper started 04/02 -s/p Actemra per ID -Per ID patient is on a candidate for remdesivir due to renal failure -Patient received 1 dose of remdesivir on 03/14 -Prophylactic anticoagulation based on D-dimer -s/p Cipro/Dex drops for 5 days -Abx per ID: [email or web address] 03/27-03/31 -Trend COVID-19 inflammatory markers -Isolation/droplet precautions for 21 days -Vitamin C/vitamin D/zinc -follow culture data -Monitor WBC and fever curve -s/p plasmapheresis x2 (04/01-04/02) -LDH 509, Eliezer pending, fibrinogen 491 -Artic sun for temp regulation Heme: Leukocytosis, elevated D-dimer -Trend CBC -Transfuse hemoglobin less than 7 -Eliquis restarted 03/29 -SCDs to bilateral lower extremity while in bed -BLE duplex US shows no DVT -HIT negative Endo: Hyperglycemia -Hemoglobin A1c 6.3 -SSI -Accu-Cheks every 6 -Avoid hypoglycemia The high probability of a clinically significant, sudden or life threatening deterioration of the [multiple] system(s) required my full and direct attention, intervention and personal management. The aggregate critical care time was [60] minutes. This time is in addition to time spent performing reported procedures but includes the following: [x] Data Review and interpretation [x] Patient assessment and monitoring of vital signs [x] Documentation [x] Medication orders and management Disposition Plan: icu Total Time Spent with Patient (Minutes): 60 History Interval history: This is a 31-year-old female with asthma, history of prior intubation x1 in 02/2019, morbid obesity and Crohn's disease who presented to the emergency department on 03/13 with complaints of severe wheezing and shortness of breath over the past 4 days which is not relieved by home nebulizer treatments or rescue inhalers, cough without fever and no loss of sense of taste or smell. Patient is currently on vaccinated for COVID-19. In the emergency department patient was placed on BiPAP given steroids magnesium Solu-Medrol with improvement, CXR shows a streak of possible pneumonia. Patient was made a COVID-19 PUI and admitted to the hospital service. Patient was initially admitted to [facility] on BiPAP and was subsequently intubated due to severe respiratory distress and inability to protect her airway. Patient was admitted with acute hypoxic respiratory failure, acute asthma exacerbation, right upper lobe pneumonia, and as a COVID-19 PUI. Hospital Course to Date: 03/14/21- Patient is s/p intubation from this morning, sedated on propofol and fentanyl RASS -3 to -4. ETT above the clavicles advanced by 2cc. Continue nebs and IV steroids per [facility]. COVID swab pending. Hyperkalemia improved, X1 dose of kayaxalate ordered. Low BP and low urine output this am, fluid bolus challenge, 500cc of NS bolus given. Continue to monitor electrolytes and renal function, repeat BMP this afternoon. 03/15: Patient's renal function noted to be significantly worse today, patient was hyperkalemic and this was medically treated. Patient initiated on hemodialysis today. infectious disease was consulted today. 03/16: No acute events reported overnight, patient received hemodialysis yesterday. Patient is currently on propofol and fentanyl. 03/17: Patient received hemodialysis today, patient is slightly acidotic on ABG however [facility] is allowing for permissive hypercapnia, tracheal aspirate with Staph aureus and ID is aware. 03/18: Patient is having high residuals today and Reglan was started, patient will receive HD daily per nephrology, correct her change in FiO2 as tolerated. 03/19: HD per nephrology today, antibiotics changed to cefazolin. Patient did not tolerate tube feedings as she had high residuals this morning and they were turned off. Not restarted yet. Updated family at bedside today 03/20: HD today, ddimer noted to be >1000, Tolerating trickle TF. Stat BLE dopplar US 03/21: Patient is not tolerating TF, CXR shows worsening infiltrates, [facility] made changes to vent, TF on hold and started on IVF. 03/22/21- Patient remains intubated and on sedation. Persistent vomiting, TF held overnight, no documented BM, on reglan BR added, Shaun citarte & supp. HD today. Plan to restart TF at 10ml/hr, will reevaluate in the am. Persistent thrombocytopenia, Hep on hold, HIT panel ordered, PO eliquis initiated. 03/23/21- Patient remains on the vent and sedated on propofol and fentanyl RASS - 2 to -3. Possible SAT today as tolerated. Patient tolerated trickle feeds overnight, plan to advance TF by 10cc Q8 to 12hrs. Continue current BR and continue reglan for now. Slightr worsening in acidosis from this am, d/w [facility] vent setting adjusted, will repeat ABG at 9pm. 03/24/21- Patient is on the vent and sedated, on fentanyl and propfol. Bilateral subconjunctival hemorrhage with periorbital edema noted this am, pupils are round and reactive, will Cipro/Dex [id number]. Worsening of kidney function from today's labs, plan for HD per Nephro. 03/25/21- Patient remains intubated and on sedatin, RASS 0 to -1, no longer on pressors. Sudden drop in H&H this am, bilateral subconjunctival hemorrhage with no sig change, no signs of any active bleeding. Patient appears neurologically intact, following commands, pupils are round and reactive with + gag and cough, moved all extremities. D/w [facility] patient is too unstable for CT at this time. Eliquis D/Devaughn, 1unit of PRBC ordered. Will continue to trend CBC. Plan for another section of HD today 03/26/21- Patient remains on the vent and sedated. VENICE reported from overnight. Plan for HD again today. H&H back up and stable, no AC at this time, SCDs for VT E phro. D/w [facility] patient is still too unstable for CT scan, will continue neuro exam and will continue to monitor H&H. 03/27/21- VENICE overnight. remains on the vent and sedated. Red localized rashes noted in patient upper chest and face, will r/o allergic reaction,CBC with auto diff and urine eosinophils ordered. Plan for HD today per Nephro. 03/28/21- Patient remains on the vent and sedated. Persistent fevers overnight unrelieved with antipyretic, currently on a cooling blanket. Back on pressors for hypotension, patient already on IV abx, last blood cultureX2 and sputum culture from 03/23 were negative. Continue IV abx, will reculture patient, orders placed for B.culture and sputum culture. ID is also on consult. will continue F/u on culture and continue to monitor BMP and CBC. 03/29: Patient restarted on prednisone given splotchy rash, will resume apixaban for VTE prophylaxis and repeat ABG at 9 PM. Remains with leukocytosis, elevated BUN/creatinine, elevated triglycerides and on Levophed 03/30: HD today, rash is still present and started on IV steroids. plt is low today but will continue to monitor. CCM made changes to vent-> decrease in MV. ABG in the pm and possible punch biopsy tomorrow if rash is not improved. propofol changed to versed 03/31: Heme/oncology consulted yesterday, will start patient on plasmapheresis for possible HUS. Cefepime discontinued today as today was the last day. Patient started on pulse dose steroids of 1 g/day for 3 days. Some improvement noted to eyes this morning. Patient was febrile overnight and received ibuprofen overnight. Acetaminophen allergy confirmed with family, allergy is only to oxycodone and hydrocodone but not the acetaminophen component. Confirmed by family patient has no reaction to [id number] Tylenol. Re tessa on vasopressor support and sedated with fentanyl, propofol and Versed. Vent mode changed to pressure control ventilation. Patient started on Arctic sun for fever control. Mother updated over telephone this a.m. and this p.m. family meeting held with her mother, sister x 2 and brother and with 2 other unknown people over the phone (1 female and one male) and nurse. Family states that patient is likely to an antibiotic possibly penicillins. This information was not available to us before. 04/01: Hyperkalemia medically treated, patient scheduled for dialysis today, plasmapheresis for possible HUS scheduled for today, steroids should be ending tomorrow, generalized rash/discoloration minimally better. Patient still remains on Arctic sun for temperature regulation. Vent changes per [facility]. 04/02: plasma exchange, tessa on sedatives and vasopressor support, HD for ultrafiltration 04/03: remains on artic sun but water temp noted to be in the 30s today. Completed plasmapheresis x2 and is now on steroid taper however minimal change noted to rash/discoloration. Eyes are more clear today but remain red under lids (tops of eye). Acidosis noted on ABG. Hyperkalemia and hyperphosphatemeia persists. Sedation increased for RR in to the 40s-50s and vasopressors being titrated as tolerated. 04/04: Patient receiving 1 unit PRBC per heme's recommendation, increased respiratory effort noted, patient is acidotic on ABG and given 1 amp of bicarb in addition to bicarb drip, sedation increased for vent synchrony. No HD per nephrology given tachycardia. Seroquel started. Hospitalist Physical - Physical exam Narrative exam: General appearance: Present: no acute distress, well-nourished, obese, other (Intubated and sedated) - EENT Eyes: Present: PERRL ENT: dentition normal - Neck Neck: Absent: masses or JVD, cervical LAD - Respiratory Respiratory effort: normal Respiratory: bilateral: diminished, wheezing - Cardiovascular Rhythm: regular Heart Sounds: Present: S1 & S2. Absent: systolic murmur, diastolic murmur - Extremities Extremities: pulses intact, pulses symmetrical Extremity abnormal: edema, erythema Peripheral Pulses: within normal limits - Abdominal General gastrointestinal: soft, non-tender, non-distended, normal bowel sounds - Integumentary Integumentary: Present: dry - Psychiatric Psychiatric: other (sedated) - Neurologic Neurologic: other (sedated) - Allied Health Allied health notes reviewed: nursing, RT, social work - Constitutional Vitals: Temp Pulse Resp BP Pulse Ox 97.7 F 110 H 37 H 102/50 98 04/04/21 14:24 04/04/21 16:07 04/04/21 15:00 04/04/21 16:07 04/04/21 16:07 General appearance: Present: no acute distress, well-nourished, obese, other (Intubated and sedated) Results - Labs CBC & Chem 7: 04/04/21 05:00 04/04/21 07:55 Labs: Laboratory Last Values WBC 28.8 K/mm3 (4.5-11.0) H 04/04/21 05:00 RBC 2.64 M/mm3 (3.65-5.03) L 04/04/21 05:00 Hgb 8.7 gm/dl (10.1-14.3) L 04/04/21 05:00 Hct 22.2 % (30.3-42.9) L 04/04/21 05:00 MCV 84 fl (79-97) 04/04/21 05:00 MCH 33 pg (28-32) H 04/04/21 05:00 MCHC 39 % (30-34) H* 04/04/21 05:00 RDW 18.6 % (13.2-15.2) H 04/04/21 05:00 Plt Count 158 K/mm3 (140-440) 04/04/21 05:00 Lymph % (Auto) 10.7 % (13.4-35.0) L 03/28/21 09:37 [place] % (Auto) 5.2 % (0.0-7.3) 03/28/21 09:37 Eos % (Auto) [employer] 04/03/21 04:30 Baso % (Auto) 0.2 % (0.0-1.8) 03/28/21 09:37 Lymph # (Auto) 1.7 K/mm3 (1.2-5.4) 03/28/21 09:37 [place] # (Auto) 0.9 K/mm3 (0.0-0.8) H 03/28/21 09:37 Eos # (Auto) 0.6 K/mm3 (0.0-0.4) H 03/28/21 09:37 Baso # (Auto) 0.0 K/mm3 (0.0-0.1) 03/28/21 09:37 Add Manual Diff Complete 04/03/21 04:30 Total Counted 100 04/03/21 04:30 Seg Neutrophils % 80.0 % (40.0-70.0) H 03/28/21 09:37 Seg Neuts % (Manual) 44.0 % (40.0-70.0) 04/03/21 04:30 Lymphocytes % (Manual) 27.0 % (13.4-35.0) 04/03/21 04:30 Eosinophils % (Manual) 27.0 % (0.0-4.3) H 04/03/21 04:30 Basophils % (Manual) 2.0 % (0.0-1.8) H 04/03/21 04:30 Nucleated RBC % Not Reportable 04/03/21 04:30 Seg Neutrophils # 13.0 K/mm3 (1.8-7.7) H 03/28/21 09:37 Seg Neutrophils # Man 13.7 K/mm3 (1.8-7.7) H 04/03/21 04:30 Band Neutrophils # 0.0 K/mm3 04/03/21 04:30 Lymphocytes # (Manual) 8.4 K/mm3 (1.2-5.4) H 04/03/21 04:30 Abs React Lymphs (Man) 0.0 K/mm3 04/03/21 04:30 Monocytes # (Manual) 0.0 K/mm3 (0.0-0.8) 04/03/21 04:30 Eosinophils # (Manual) 8.4 K/mm3 (0.0-0.4) H 04/03/21 04:30 Basophils # (Manual) 0.6 K/mm3 (0.0-0.1) H 04/03/21 04:30 Metamyelocytes # 0.0 K/mm3 04/03/21 04:30 Myelocytes # 0.0 K/mm3 04/03/21 04:30 Promyelocytes # 0.0 K/mm3 04/03/21 04:30 Blast Cells # 0.0 K/mm3 04/03/21 04:30 WBC Morphology Not Reportable 04/03/21 04:30 Hypersegmented Neuts Not Reportable 04/03/21 04:30 Hyposegmented Neuts Not Reportable 04/03/21 04:30 Hypogranular Neuts Not Reportable 04/03/21 04:30 Smudge Cells Not Reportable 04/03/21 04:30 Toxic Granulation Not Reportable 04/03/21 04:30 Toxic Vacuolation Not Reportable 04/03/21 04:30 Dohle Bodies Not Reportable 04/03/21 04:30 Pelger-Huet Anomaly Not Reportable 04/03/21 04:30 Bridgette Rods Not Reportable 04/03/21 04:30 Platelet Estimate Not Reportable 04/03/21 04:30 Clumped Platelets Not Reportable 04/03/21 04:30 Plt Clumps, EDTA Not Reportable 04/03/21 04:30 Large Platelets Not Reportable 04/03/21 04:30 Giant Platelets Not Reportable 04/03/21 04:30 Platelet Satelliting Not Reportable 04/03/21 04:30 Plt Morphology Comment Not Reportable 04/03/21 04:30 RBC Morphology Normal 04/03/21 04:30 Dimorphic RBCs Not Reportable 04/03/21 04:30 Polychromasia Not Reportable 04/03/21 04:30 Hypochromasia Not Reportable 04/03/21 04:30 Poikilocytosis Not Reportable 04/03/21 04:30 Anisocytosis Not Reportable 04/03/21 04:30 Microcytosis Not Reportable 04/03/21 04:30 Macrocytosis Not Reportable 04/03/21 04:30 Spherocytes Not Reportable 04/03/21 04:30 Pappenheimer Bodies Not Reportable 04/03/21 04:30 Sickle Cells Not Reportable 04/03/21 04:30 Target Cells Not Reportable 04/03/21 04:30 Tear Drop Cells Not Reportable 04/03/21 04:30 Ovalocytes Not Reportable 04/03/21 04:30 Helmet Cells Not Reportable 04/03/21 04:30 Kebede-Terminous Bodies Not Reportable 04/03/21 04:30 [place] Rings Not Reportable 04/03/21 04:30 [place] Cells Not Reportable 04/03/21 04:30 Bite Cells Not Reportable 04/03/21 04:30 Crenated Cell Not Reportable 04/03/21 04:30 Elliptocytes Not Reportable 04/03/21 04:30 Acanthocytes (Spur) Not Reportable 04/03/21 04:30 Rouleaux Not Reportable 04/03/21 04:30 Hemoglobin C Crystals Not Reportable 04/03/21 04:30 Schistocytes Not Reportable 04/03/21 04:30 Malaria parasites Not Reportable 04/03/21 04:30 Percent Retic 4.52 % (0.78-2.58) H 03/31/21 09:49 Vaibhav Bodies Not Reportable 04/03/21 04:30 Hem Pathologist Commnt No 04/03/21 04:30 PT 13.9 Sec. (12.2-14.9) 04/04/21 07:55 INR 0.96 (0.87-1.13) 04/04/21 07:55 APTT 28.9 Sec. (24.2-36.6) 04/04/21 07:55 Fibrinogen 248 mg/dl (211-480) 04/02/21 04:00 D-Dimer 2607.12 ng/mlDDU (0-234) H 03/30/21 04:00 Heparin Anti-Xa, Unfract TNR 03/22/21 08:20 ABG pH 7.162 pH Units (7.350-7.450) L* 04/04/21 14:06 POC ABG pCO2 Cancelled 04/03/21 20:45 ABG pCO2 70.6 mm Hg 04/04/21 14:06 POC ABG pO2 Cancelled 04/03/21 20:45 ABG pO2 91.3 mm Hg (80.0-90.0) H 04/04/21 14:06 POC ABG HCO3 Cancelled 04/03/21 20:45 ABG HCO3 24.7 mmol/L (20.0-26.0) 04/04/21 14:06 ABG O2 Saturation 94.8 % (95.0-99.0) L 04/04/21 14:06 ABG O2 Content 10.0 (0.0-44) 04/04/21 14:06 POC ABG Base Excess Cancelled 04/03/21 20:45 ABG Base Excess -4.0 mmol/L (-2.0-3.0) L 04/04/21 14:06 ABG Hemoglobin 7.6 gm/dl (12.0-16.0) L 04/04/21 14:06 ABG Oxyhemoglobin Cancelled 04/03/21 20:45 ABG Carboxyhemoglobin 2.1 % (0.0-5.0) 04/04/21 14:06 ABG Methemoglobin 0.4 % (0.0-1.5) 04/04/21 14:06 ABG Sodium Cancelled 04/03/21 20:45 ABG Potassium Cancelled 04/03/21 20:45 ABG Chloride Cancelled 04/03/21 20:45 ABG Glucose Cancelled 04/03/21 20:45 ABG Lactate Cancelled 04/03/21 20:45 Oxyhemoglobin 92.4 % (95.0-99.0) L 04/04/21 14:06 Carboxyhemoglobin Cancelled 04/03/21 20:45 FiO2 60 % 04/04/21 14:06 FiO2 % Cancelled 04/03/21 20:45 Sodium 133 mmol/L (137-145) L 04/04/21 07:55 Potassium 4.0 mmol/L (3.6-5.0) D 04/04/21 07:55 Chloride 91.0 mmol/L (98-107) L 04/04/21 07:55 Carbon Dioxide 20 mmol/L (22-30) L 04/04/21 07:55 Anion Gap 26 mmol/L 04/04/21 07:55 BUN 75 mg/dL (7-17) H 04/04/21 07:55 Creatinine 4.7 mg/dL (0.6-1.2) H 04/04/21 07:55 Estimated GFR 13 ml/min 04/04/21 07:55 BUN/Creatinine Ratio 16 % 04/04/21 07:55 Glucose 184 mg/dL (65-100) H 04/04/21 07:55 POC Glucose 199 mg/dL (70-105) H 04/04/21 12:01 Hemoglobin A1c 6.3 % (4-6) H 03/15/21 05:09 Lactic Acid 2.00 mmol/L (0.7-2.0) 03/14/21 18:47 Calcium 7.3 mg/dL (8.4-10.2) L 04/04/21 07:55 Phosphorus 10.30 mg/dL (2.5-4.5) H 04/03/21 04:30 Magnesium 2.10 mg/dL (1.7-2.3) 04/03/21 04:30 Ferritin 151.6 ng/mL (10.0-200.0) 03/18/21 04:30 Total Bilirubin 0.70 mg/dL (0.1-1.2) 04/04/21 07:55 Bilirubin Cancelled 04/03/21 20:45 AST < 5 units/L (5-40) L 04/04/21 07:55 ALT < 5 units/L (7-56) L 04/04/21 07:55 Alkaline Phosphatase 200 units/L (35-129) H 04/04/21 07:55 Lactate Dehydrogenase 509 units/L (91-180) H 03/31/21 09:55 C-Reactive Protein 21.50 mg/dL (0.00-1.30) H 03/30/21 04:00 Total Protein 5.6 g/dL (6.3-8.2) L 04/04/21 07:55 Albumin 2.9 g/dL (3.9-5) L 04/04/21 07:55 Albumin/Globulin Ratio 1.1 % 04/04/21 07:55 Triglycerides 579 mg/dL (2-149) H 04/02/21 05:00 Procalcitonin < 0.05 ng/mL (<0.15) 03/13/21 15:40 HCG, Qual Negative (Negative) 03/13/21 13:26 Arterial Blood Glucose Cancelled 04/03/21 20:45 Arterial Blood Ionized Calcium Cancelled 04/03/21 20:45 Urine Creatinine 40.1 mg/dL (0.1-20.0) H 03/14/21 17:50 Urine Sodium 124 mmol/L 03/14/21 17:50 Random Vancomycin 11.2 ug/mL (0-40.0) 03/20/21 04:23 Heparin-induced Plt Ab Negative (Negative) 03/22/21 08:20 UF Heparin High Dose TNR 03/22/21 08:20 JUAN UFH Low Dose 0.1 TNR 03/22/21 08:20 JUAN UFH Low Dose 0.5 TNR 03/22/21 08:20 Coronavirus (PCR) Negative (Negative) 04/04/21 09:00 Hepatitis A IgM Ab Non-reactive (NonReactive) 03/15/21 05:09 Hep Bs Antigen Nonreactive (Negative) 03/15/21 05:09 Hep B Core IgM Ab Non-reactive (NonReactive) 03/15/21 05:09 Hepatitis C Antibody Non-reactive (NonReactive) 03/15/21 05:09 Schistocytes Smear None seen 03/31/21 12:11 Blood Type O POSITIVE 04/04/21 09:20 Antibody Screen Negative 04/04/21 09:20 Direct Antiglob Test Negative 03/31/21 23:18 NIKOLE, Poly Interpret Negative 03/31/21 23:18 Crossmatch See Detail 04/04/21 09:20 Microbiology: Microbiology 03/29/21 23:26 Peripheral/Venous Blood Culture - Final NO GROWTH AFTER 5 DAYS 03/29/21 23:30 Peripheral/Venous Blood Culture - Final NO GROWTH AFTER 5 DAYS Bazan/IV: Voiding Method Incontinent Active Medications - Current Medications Current Medications: Generic Name Dose Route Start Last Admin Trade Name Freq PRN Reason Stop Dose Admin Acetaminophen 650 mg 03/31/21 12:41 04/04/21 09:50 Acetaminophen 325 Mg/10.15 Ml Oral Liqd Unit Dose FEEDTUBE 650 mg Q6H PRN Administration TEMP >/=100.4 Albumin Human 25 gm 04/01/21 08:19 04/01/21 16:23 Albumin Human 25% (25 Gm/100 Ml) Inj IV 25 gm KARLOS PRN Administration Hypotension Albuterol 2.5 mg 03/19/21 00:53 Albuterol 2.5 Mg/3 Ml Nebu IH Q4HRT PRN Shortness Of Breath Albuterol/Ipratropium 1 ampul 03/19/21 08:00 04/04/21 14:32 Ipratropium/Albuterol Sulfate 3 Ml Ampul.Neb IH 1 ampul Q6HRT INESSA Administration Lipase/Protease/Amylase 1 each 03/15/21 11:42 Lipase 10,500/Protease 25,000/Amylase 43,750 (Units) Dr White FEEDTUBE PRN PRN For Clogged Feeding Tube Apixaban 2.5 mg 03/29/21 13:00 04/04/21 09:50 Apixaban 2.5 Mg Tab PO 2.5 mg Q12HR INESSA Administration Protocol Ascorbic Acid 500 mg 03/14/21 22:00 04/04/21 09:50 Ascorbic Acid 500 Mg Tab PO 500 mg BID INESSA Administration Calcium Acetate 1,334 mg 04/03/21 20:00 04/04/21 13:20 Calcium Acetate 667 Mg Cap FEEDTUBE 1,334 mg TID INESSA Administration Dextrose 50 ml 03/14/21 11:02 03/15/21 11:40 Dextrose 50% In Water (25gm) 50 Ml Syringe IV 50 ml Q30MIN PRN Administration Hypoglycemia Protocol Famotidine 10 mg 03/17/21 22:00 04/04/21 09:50 Famotidine 10 Mg Tab PO 10 mg BID INESSA Administration Fentanyl 50 mcg 03/15/21 10:43 03/28/21 09:25 Fentanyl 100 Mcg/2 Ml Inj IV 50 mcg Q10MIN PRN Administration ANALGESIA Hydrophilic Ointment 1 applic 03/14/21 17:50 Lip Therapy Vaseline TP Q2HR PRN Dry Lips Propofol 1,000 mg in 100 mls @ 4.123 mls/hr 03/15/21 11:00 04/04/21 16:23 Diprivan 10 Mg/Ml IV 40 mcg/kg/min TITR INESSA 32.985 mls/hr Administration Protocol 5 MCG/KG/MIN Fentanyl Citrate 2,000 mcg in 100 mls @ 6.872 mls/hr 03/15/21 11:00 04/04/21 16:22 Fentanyl Drip Premix IV 4 mcg/kg/hr TITR INESSA 27.488 mls/hr Administration Protocol 1 MCG/KG/HR Sodium Chloride 500 mls @ 1 mls/hr 03/16/21 17:19 Nacl 0.9% 500 Ml IV DIRECT PRN ARTERIAL LINE FLUSH NORepinephrine/NS 8 MG-250 ML 8 mg in 250 mls @ 3.75 mls/hr 03/23/21 11:00 04/04/21 16:24 Norepinephrine/Ns 8 Mg-250 Ml (Double Conc) IV 21 mcg/min TITRATE INESSA 39.375 mls/hr Administration Protocol 2 MCG/MIN Midazolam HCl 100 mg/ Sodium 100 mls @ 1 mls/hr 03/30/21 15:00 04/04/21 15:57 Chloride IV 7 mg/hr TITR INESSA 7 mls/hr Titration Protocol 1 MG/HR Vasopressin 20 unit/ Sodium 101 mls @ 9.09 mls/hr 03/30/21 20:00 04/04/21 07:34 Chloride IV 0.03 units/min TITR INESSA 9.09 mls/hr Administration 0.03 UNITS/MIN Phenylephrine HCl 100 mg/ 100 mls @ 3 mls/hr 03/31/21 04:00 04/04/21 15:54 Sodium Chloride IV 100 mcg/min TITR INESSA 6 mls/hr Administration Protocol 50 MCG/MIN Sodium Chloride 100 mls @ 999 mls/hr 04/01/21 08:19 Nacl 0.9% IV KARLOS PRN Hypotension Sodium Bicarbonate 150 meq/ 1,150 mls @ 75 mls/hr 04/02/21 22:00 04/03/21 13:42 Dextrose IV 75 mls/hr DIRECT INESSA Administration Sodium Chloride 500 mls @ 0 mls/hr 04/04/21 08:40 Nacl 0.9% 500 Ml IV 04/04/21 20:00 ONCE NR As Directed Insulin Human Lispro 0 unit 03/14/21 12:00 04/04/21 12:42 Insulin Lispro 100 Unit/Ml SUB-Q 2 unit Q6HR INESSA Administration Protocol Lorazepam 1 mg 03/13/21 19:40 03/30/21 19:58 Lorazepam 2 Mg/Ml Vial IV 1 mg Q4H PRN Administration Anxiety Methylprednisolone Sodium Succinate 80 mg 04/04/21 22:00 Methylprednisolone Sod Succinate 125 Mg/2 Ml Inj IV Q8HR INESSA Midazolam HCl 2 mg 03/30/21 14:19 03/30/21 14:30 Midazolam 2 Mg/2 Ml Inj IV 2 mg Q10MIN PRN Administration Sedation Multi-Ingred Cream/Lotion/Oil/Oint 1 applic 03/14/21 17:50 04/02/21 14:31 Mineral Oil/Petrolatum, White Ophth Oint 3.5 Gm OU 1 applic Q4HR PRN Administration Dry Eye(s) Ondansetron HCl 4 mg 03/13/21 19:30 03/21/21 12:05 Ondansetron 4 Mg/2 Ml Inj IV 4 mg Q8H PRN Administration Nausea And Vomiting Quetiapine Fumarate 100 mg 04/04/21 14:00 04/04/21 14:35 Quetiapine 100 Mg Tab PO 100 mg BID INESSA Administration Quetiapine Fumarate 50 mg 04/04/21 14:00 04/04/21 14:35 Quetiapine 25 Mg Tab PO 50 mg BID INESSA Administration Senna/Docusate Sodium 1 tab 03/14/21 22:00 04/04/21 09:50 Sennosides/Docusate Sodium 8.6/50 Mg Tab FEEDTUBE 1 tab BID INESSA Administration Simple Syrup 15 ml 03/15/21 11:42 Simple Syrup 15 Ml FEEDTUBE PRN PRN Hypoglycemia Simple Syrup 30 ml 03/15/21 11:42 Simple Syrup 15 Ml FEEDTUBE PRN PRN Hypoglycemia Sodium Bicarbonate 325 mg 03/15/21 11:42 03/21/21 17:21 Sodium Bicarbonate 325 Mg Tab FEEDTUBE 325 mg PRN PRN Administration For Clogged Feeding Tube Sodium Chloride 10 ml 03/13/21 22:00 04/04/21 09:51 Sodium Chloride 0.9% 10 Ml Flush Syringe IV 10 ml BID INESSA Administration Sodium Chloride 10 ml 03/13/21 19:30 Sodium Chloride 0.9% 10 Ml Flush Syringe IV PRN PRN LINE FLUSH Zinc Sulfate 220 mg 03/14/21 22:00 04/04/21 09:49 Zinc Sulfate 220 Mg Cap PO 220 mg BID INESSA Administration Nutrition/Malnutrition Assess - Dietary Evaluation Nutrition/Malnutrition Findings: Nutrition Notes Start: 03/15/21 11:06 Freq: Status: Active Protocol: Document 04/02/21 15:08 [facility] (Rec: 04/02/21 15:19 [facility] [id number]) Nutrition Notes Initial or Follow up Reassessment Current Diagnosis Acute Kidney Injury, Hypertension,Respiratory Failure Other Pertinent Diagnosis COVID-19 pneu, periorbital edema Current Diet TF - Nepro at 44ml/hr Labs/Tests Na 132 K 5.3 BUN 80 Cr 6.8 BG 174 Triglycerides 579 Pertinent Medications Propofol at 32.985ml/hr ( provides 871 kcal), Human Albumin, Solumedrol, Levophed gtt, Phenylephrine gtt, Vasopressin gtt, Kionex Height 5 ft 5 in Weight 137.438 kg Ellis Body Weight (kg) 56.81 BMI 50.4 Weight Status Morbidly Obese Subjective/Other Information Spoke with pt's RN via phone at 15:06. Pt tolerating TF at goal rate, despite being on three pressors. Per RN, been able to decrease pressor concentration. Pt been spiking a fever for past few days; Artic sun blanket in place to lower body temperature. Pt remains on vent support. Percent of energy/protein needs met: 99% energy 73% pro Burn Absent Trauma Absent Minimum of two criteria No #1 Nutrition Diagnosis Swallowing difficulty Diagnosis Progress(for reassessment Continues documentation) Is patient on ventilator? Yes Is Patient Ambulatory and/or Out of Bed No REE-([facility]-confined to bed) 2515.536 Kcal/Kg value to use for calculation 14 Approximate Energy Requirements Using 1924 kcal/Kg Calculation Used for Recommendations Kcal/kg Additional Notes Pro needs >1.2g/kg adjBW: > 117g/day Fluid needs 1-1.5L/day Nutrition Intervention Nutrition Support: Continue Nepro at 44ml/hr. Provide 120ml water flush q4h Kcal 1,901 Protein (gm) 86 Carbohydrates (gm) 170 Fat (gm) 101 Fluid (mL) 768 Fiber (gm) 13 Goal #1 TF tolerance Goal #2 TF to meet at least 75% energy and pro needs Follow-Up By: 04/09/21 Additional Comments F/U: stable TF, vent status, wt, propofol, pressor support, rectal tube <SAURABH ALBRECHT - Last Filed: 04/15/21 07:31> Assessment and Plan Assessment and plan: I saw and evaluated the patient. Discussed with the nurse practitioner and agree with their findings and plan as documented in this note. Hospitalist Physical - Constitutional Vitals: Temp Pulse Resp BP Pulse Ox 102.0 F H 137 H 20 140/76 100 04/15/21 04:00 04/15/21 06:00 04/15/21 06:00 04/15/21 06:00 04/15/21 06:00 Results - Labs CBC & Chem 7: 04/15/21 Unknown 04/15/21 Unknown Labs: Laboratory Last Values WBC 11.8 K/mm3 (4.5-11.0) H 04/15/21 Unknown RBC 2.41 M/mm3 (3.65-5.03) L 04/15/21 Unknown Hgb 7.1 gm/dl (10.1-14.3) L 04/15/21 Unknown Hct 22.4 % (30.3-42.9) L 04/15/21 Unknown MCV 93 fl (79-97) 04/15/21 Unknown MCH 29 pg (28-32) 04/15/21 Unknown MCHC 32 % (30-34) 04/15/21 Unknown RDW 17.0 % (13.2-15.2) H 04/15/21 Unknown Plt Count 38 K/mm3 (140-440) L 04/15/21 Unknown Lymph % (Auto) 10.7 % (13.4-35.0) L 03/28/21 09:37 [place] % (Auto) 5.2 % (0.0-7.3) 03/28/21 09:37 Eos % (Auto) [employer] 04/07/21 03:50 Baso % (Auto) 0.2 % (0.0-1.8) 03/28/21 09:37 Lymph # (Auto) 1.7 K/mm3 (1.2-5.4) 03/28/21 09:37 [place] # (Auto) 0.9 K/mm3 (0.0-0.8) H 03/28/21 09:37 Eos # (Auto) 0.6 K/mm3 (0.0-0.4) H 03/28/21 09:37 Baso # (Auto) 0.0 K/mm3 (0.0-0.1) 03/28/21 09:37 Add Manual Diff Complete 04/07/21 03:50 Total Counted 100 04/07/21 03:50 Seg Neutrophils % 80.0 % (40.0-70.0) H 03/28/21 09:37 Seg Neuts % (Manual) 67.0 % (40.0-70.0) 04/07/21 03:50 Lymphocytes % (Manual) 10.0 % (13.4-35.0) L 04/07/21 03:50 Monocytes % (Manual) 4.0 % (0.0-7.3) 04/07/21 03:50 Eosinophils % (Manual) 19.0 % (0.0-4.3) H 04/07/21 03:50 Basophils % (Manual) 2.0 % (0.0-1.8) H 04/03/21 04:30 Nucleated RBC % 2.0 % (0.0-0.9) H 04/07/21 03:50 Seg Neutrophils # 13.0 K/mm3 (1.8-7.7) H 03/28/21 09:37 Seg Neutrophils # Man 17.9 K/mm3 (1.8-7.7) H 04/07/21 03:50 Band Neutrophils # 0.0 K/mm3 04/07/21 03:50 Lymphocytes # (Manual) 2.7 K/mm3 (1.2-5.4) 04/07/21 03:50 Abs React Lymphs (Man) 0.0 K/mm3 04/07/21 03:50 Monocytes # (Manual) 1.1 K/mm3 (0.0-0.8) H 04/07/21 03:50 Eosinophils # (Manual) 5.1 K/mm3 (0.0-0.4) H 04/07/21 03:50 Basophils # (Manual) 0.0 K/mm3 (0.0-0.1) 04/07/21 03:50 Metamyelocytes # 0.0 K/mm3 04/07/21 03:50 Myelocytes # 0.0 K/mm3 04/07/21 03:50 Promyelocytes # 0.0 K/mm3 04/07/21 03:50 Blast Cells # 0.0 K/mm3 04/07/21 03:50 WBC Morphology Not Reportable 04/07/21 03:50 Hypersegmented Neuts Not Reportable 04/07/21 03:50 Hyposegmented Neuts Not Reportable 04/07/21 03:50 Hypogranular Neuts Not Reportable 04/07/21 03:50 Smudge Cells Not Reportable 04/07/21 03:50 Toxic Granulation Not Reportable 04/07/21 03:50 Toxic Vacuolation Not Reportable 04/07/21 03:50 Dohle Bodies Not Reportable 04/07/21 03:50 Pelger-Huet Anomaly Not Reportable 04/07/21 03:50 Bridgette Rods Not Reportable 04/07/21 03:50 Platelet Estimate Consistent w auto 04/07/21 03:50 Clumped Platelets Not Reportable 04/07/21 03:50 Plt Clumps, EDTA Not Reportable 04/07/21 03:50 Large Platelets Not Reportable 04/07/21 03:50 Giant Platelets Not Reportable 04/07/21 03:50 Platelet Satelliting Not Reportable 04/07/21 03:50 Plt Morphology Comment Not Reportable 04/07/21 03:50 RBC Morphology Not Reportable 04/07/21 03:50 Dimorphic RBCs Not Reportable 04/07/21 03:50 Polychromasia Not Reportable 04/07/21 03:50 Hypochromasia Not Reportable 04/07/21 03:50 Poikilocytosis Not Reportable 04/07/21 03:50 Anisocytosis 1+ 04/07/21 03:50 Microcytosis Not Reportable 04/07/21 03:50 Macrocytosis Not Reportable 04/07/21 03:50 Spherocytes Not Reportable 04/07/21 03:50 Pappenheimer Bodies Not Reportable 04/07/21 03:50 Sickle Cells Not Reportable 04/07/21 03:50 Target Cells 1+ 04/07/21 03:50 Tear Drop Cells Not Reportable 04/07/21 03:50 Ovalocytes Not Reportable 04/07/21 03:50 Helmet Cells Not Reportable 04/07/21 03:50 Kebede-Terminous Bodies Not Reportable 04/07/21 03:50 [place] Rings Not Reportable 04/07/21 03:50 Balaji Cells Not Reportable 04/07/21 03:50 Bite Cells Not Reportable 04/07/21 03:50 Crenated Cell Not Reportable 04/07/21 03:50 Elliptocytes Not Reportable 04/07/21 03:50 Acanthocytes (Spur) Not Reportable 04/07/21 03:50 Rouleaux Not Reportable 04/07/21 03:50 Hemoglobin C Crystals Not Reportable 04/07/21 03:50 Schistocytes Not Reportable 04/07/21 03:50 Malaria parasites Not Reportable 04/07/21 03:50 Percent Retic 4.52 % (0.78-2.58) H 03/31/21 09:49 Vaibhav Bodies Not Reportable 04/07/21 03:50 Hem Pathologist Commnt No 04/07/21 03:50 PT 16.3 Sec. (12.2-14.9) H 04/15/21 Unknown INR 1.18 (0.87-1.13) H 04/15/21 Unknown APTT 28.9 Sec. (24.2-36.6) 04/04/21 07:55 Fibrinogen 400 mg/dl (211-480) 04/14/21 09:45 D-Dimer 2696.79 ng/mlDDU (0-234) H 04/08/21 04:40 Heparin Anti-Xa, Unfract TNR 03/22/21 08:20 ABG pH 7.207 (7.320-7.450) L 04/14/21 21:00 POC ABG pCO2 67.6 mmHg (32.0-48.0) H 04/14/21 21:00 ABG pCO2 68.6 mm Hg 04/13/21 03:52 POC ABG pO2 143.7 mmHg (83-108) H 04/14/21 21:00 ABG pO2 98.9 mm Hg (80.0-90.0) H 04/13/21 03:52 POC ABG HCO3 26.2 04/14/21 21:00 ABG HCO3 25.5 mmol/L (20.0-26.0) 04/13/21 03:52 ABG O2 Saturation 98.8 (0-100) 04/14/21 21:00 ABG O2 Content 10.0 (0.0-44) 04/13/21 03:52 POC ABG Base Excess -1.9 04/14/21 21:00 ABG Base Excess -2.9 mmol/L (-2.0-3.0) L 04/13/21 03:52 ABG Hemoglobin 7.6 (12.0-17.5) L 04/14/21 21:00 ABG Oxyhemoglobin 97.6 (94-98) 04/14/21 21:00 ABG Carboxyhemoglobin 1.9 % (0.0-5.0) 04/13/21 03:52 ABG Methemoglobin 0.1 (0.0-1.5) 04/14/21 21:00 ABG Sodium 133.8 mmol/L (136.0-145.0) L 04/14/21 21:00 ABG Potassium 4.0 mmol/L (3.40-4.50) 04/14/21 21:00 ABG Chloride 101.0 mmol/L (98-107) 04/14/21 21:00 ABG Glucose 158 mg/dL (65-95) H 04/14/21 21:00 ABG Lactate Cancelled 04/03/21 20:45 Oxyhemoglobin 94.3 % (95.0-99.0) L 04/13/21 03:52 Carboxyhemoglobin 1.1 (0.5-1.5) 04/14/21 21:00 FiO2 65 % 04/13/21 03:52 FiO2 % 80.0 04/14/21 21:00 Sodium 137 mmol/L (137-145) 04/15/21 Unknown Potassium 4.3 mmol/L (3.6-5.0) 04/15/21 Unknown Chloride 98.5 mmol/L (98-107) 04/15/21 Unknown Carbon Dioxide 24 mmol/L (22-30) 04/15/21 Unknown Anion Gap 19 mmol/L 04/15/21 Unknown BUN 67 mg/dL (7-17) H 04/15/21 Unknown Creatinine 3.3 mg/dL (0.6-1.2) H 04/15/21 Unknown Estimated GFR 20 ml/min 04/15/21 Unknown BUN/Creatinine Ratio 20 % 04/15/21 Unknown Glucose 155 mg/dL (65-100) H 04/15/21 Unknown POC Glucose 147 mg/dL (70-105) H 04/14/21 23:53 Hemoglobin A1c 6.3 % (4-6) H 03/15/21 05:09 Lactic Acid 0.80 mmol/L (0.7-2.0) 04/07/21 03:50 Calcium 8.3 mg/dL (8.4-10.2) L 04/15/21 Unknown Phosphorus 5.70 mg/dL (2.5-4.5) H 04/15/21 Unknown Magnesium 1.90 mg/dL (1.7-2.3) 04/15/21 Unknown Ferritin 151.6 ng/mL (10.0-200.0) 03/18/21 04:30 Total Bilirubin 0.40 mg/dL (0.1-1.2) 04/15/21 Unknown Bilirubin Cancelled 04/03/21 20:45 AST 85 units/L (5-40) H 04/15/21 Unknown ALT 63 units/L (7-56) H 04/15/21 Unknown Alkaline Phosphatase 94 units/L (35-129) 04/15/21 Unknown Lactate Dehydrogenase 394 units/L (91-180) H 04/05/21 05:20 C-Reactive Protein 26.10 mg/dL (0.00-1.30) H 04/08/21 04:00 Total Protein 6.3 g/dL (6.3-8.2) 04/15/21 Unknown Albumin 2.4 g/dL (3.9-5) L 04/15/21 Unknown Albumin/Globulin Ratio 0.6 % 04/15/21 Unknown Triglycerides 406 mg/dL (2-149) H 04/11/21 04:15 Serotonin Release Assay TNR 03/22/21 08:20 Procalcitonin < 0.05 ng/mL (<0.15) 03/13/21 15:40 HCG, Qual Negative (Negative) 03/13/21 13:26 Arterial Blood Glucose 158 mg/dL (65-95) H 04/14/21 21:00 Arterial Blood Ionized Calcium 4.7 mg/dL (4.6-5.3) 04/14/21 21:00 Urine Color Sweta (Yellow) 04/06/21 Unknown Urine Turbidity Cloudy (Clear) 04/06/21 Unknown Urine pH 5.0 (5.0-7.0) 04/06/21 Unknown Ur Specific [place] 1.020 (1.003-1.030) 04/06/21 Unknown Urine Protein 100 mg/dl mg/dL (Negative) 04/06/21 Unknown Urine Glucose (UA) Neg mg/dL (Negative) 04/06/21 Unknown Urine Ketones Neg mg/dL (Negative) 04/06/21 Unknown Urine Blood Mod (Negative) 04/06/21 Unknown Urine Nitrite Neg (Negative) 04/06/21 Unknown Urine Bilirubin Neg (Negative) 04/06/21 Unknown Urine Urobilinogen < 2.0 mg/dL (<2.0) 04/06/21 Unknown Ur Leukocyte Esterase Neg (Negative) 04/06/21 Unknown Urine WBC (Auto) 148.0 /HPF (0.0-6.0) H 04/06/21 Unknown Urine RBC (Auto) > 182.0 /HPF (0.0-6.0) 04/06/21 Unknown U Epithel Cells (Auto) 102.0 /HPF (0-13.0) H 04/06/21 Unknown Urine Bacteria (Auto) 1+ /HPF (Negative) 04/06/21 Unknown Ur Renal Epithelial Cell 151 /LPF 04/06/21 Unknown Urine Mucus Few /HPF 04/06/21 Unknown Urine Yeast (Budding) 3+ /HPF 04/06/21 Unknown Urine Creatinine 40.1 mg/dL (0.1-20.0) H 03/14/21 17:50 Urine Sodium 124 mmol/L 03/14/21 17:50 Random Vancomycin 13.6 ug/mL (0-40.0) 04/12/21 04:30 KIMBERLEY Screen Negative (Negative) 04/07/21 08:27 Heparin-induced Plt Ab Negative (Negative) 03/22/21 08:20 UF Heparin High Dose TNR 03/22/21 08:20 JUAN UFH Low Dose 0.1 TNR 03/22/21 08:20 JUAN UFH Low Dose 0.5 TNR 03/22/21 08:20 Coronavirus (PCR) Negative (Negative) 04/04/21 09:00 Hepatitis A IgM Ab Non-reactive (NonReactive) 03/15/21 05:09 Hep Bs Antigen Nonreactive (Negative) 03/15/21 05:09 Hep B Core IgM Ab Non-reactive (NonReactive) 03/15/21 05:09 Hepatitis C Antibody Non-reactive (NonReactive) 03/15/21 05:09 Schistocytes Smear None seen 03/31/21 12:11 Blood Type O POSITIVE 04/11/21 13:39 Antibody Screen Negative 04/11/21 13:39 Direct Antiglob Test Negative 03/31/21 23:18 NIKOLE, Poly Interpret Negative 03/31/21 23:18 Crossmatch See Detail 04/11/21 13:39 Microbiology: Microbiology 04/11/21 15:05 Bronchial Washings - Left Upper Lobe Respiratory Culture - Preliminary Enterococcus Species Bazan/IV: Voiding Method Incontinent Active Medications - Current Medications Current Medications: Generic Name Dose Route Start Last Admin Trade Name Freq PRN Reason Stop Dose Admin Acetaminophen 650 mg 03/31/21 12:41 04/15/21 05:55 Acetaminophen 325 Mg/10.15 Ml Oral Liqd Unit Dose FEEDTUBE 650 mg Q6H PRN Administration TEMP >/=100.4 Albumin Human 25 gm 04/01/21 08:19 04/01/21 16:23 Albumin Human 25% (25 Gm/100 Ml) Inj IV 25 gm KARLOS PRN Administration Hypotension Albuterol 2.5 mg 03/19/21 00:53 Albuterol 2.5 Mg/3 Ml Nebu IH Q4HRT PRN Shortness Of Breath Albuterol/Ipratropium 1 ampul 03/19/21 08:00 04/15/21 02:11 Ipratropium/Albuterol Sulfate 3 Ml Ampul.Neb IH Not Given Q6HRT INESSA Lipase/Protease/Amylase 1 each 04/09/21 17:17 Lipase 10,500/Protease 25,000/Amylase 43,750 (Units) Cap FEEDTUBE PRN PRN For Clogged Feeding Tube Calcium Acetate 1,334 mg 04/03/21 20:00 04/14/21 22:05 Calcium Acetate 667 Mg Cap FEEDTUBE 1,334 mg TID INESSA Administration Dextrose 50 ml 03/14/21 11:02 03/15/21 11:40 Dextrose 50% In Water (25gm) 50 Ml Syringe IV 50 ml Q30MIN PRN Administration Hypoglycemia Protocol Famotidine 10 mg 03/17/21 22:00 04/14/21 22:04 Famotidine 10 Mg Tab PO 10 mg BID INESSA Administration Fentanyl 50 mcg 03/15/21 10:43 04/05/21 21:32 Fentanyl 100 Mcg/2 Ml Inj IV 50 mcg Q10MIN PRN Administration ANALGESIA Hydrocortisone Sodium Succinate 100 mg 04/10/21 00:00 04/15/21 00:19 Hydrocortisone Sod Succ 100 Mg/2 Ml Vial IV 100 mg Q8H INESSA Administration Hydrophilic Ointment 1 applic 03/14/21 17:50 Lip Therapy Vaseline TP Q2HR PRN Dry Lips Fentanyl Citrate 2,000 mcg in 100 mls @ 6.872 mls/hr 03/15/21 11:00 04/15/21 07:09 Fentanyl Drip Premix IV 4 mcg/kg/hr TITR INESSA 27.488 mls/hr Administration Protocol 1 MCG/KG/HR Sodium Chloride 500 mls @ 1 mls/hr 03/16/21 17:19 Nacl 0.9% 500 Ml IV DIRECT PRN ARTERIAL LINE FLUSH Midazolam HCl 100 mg/ Sodium 100 mls @ 1 mls/hr 03/30/21 15:00 04/14/21 15:45 Chloride IV 4 mg/hr TITR INESSA 4 mls/hr Titration Protocol 1 MG/HR Vasopressin 20 unit/ Sodium 101 mls @ 9.09 mls/hr 03/30/21 20:00 04/15/21 07:13 Chloride IV 0.03 units/min TITR INESSA 9.09 mls/hr Infusion 0.03 UNITS/MIN Phenylephrine HCl 100 mg/ 100 mls @ 3 mls/hr 03/31/21 04:00 04/06/21 07:58 Sodium Chloride IV 0 mcg/min TITR INESSA 0 mls/hr Titration Protocol 50 MCG/MIN Sodium Chloride 100 mls @ 999 mls/hr 04/01/21 08:19 Nacl 0.9% IV KARLOS PRN Hypotension Propofol 1,000 mg in 100 mls @ 4.26 mls/hr 04/07/21 13:00 04/12/21 12:52 Diprivan 10 Mg/Ml IV 0 mcg/kg/min TITR INESSA 0 mls/hr Titration Protocol 5 MCG/KG/MIN Micafungin Sodium 100 mg/ 100 mls @ 100 mls/hr 04/09/21 17:00 04/14/21 17:40 Sodium Chloride IV 100 mls/hr Q24H INESSA Administration Protocol Norepinephrine 8 mg/ Sodium 8 mg in 258 mls @ 3.87 mls/hr 04/12/21 04:00 04/14/21 17:39 Chloride IV 0 mcg/min TITRATE INESSA 0 mls/hr Titration Protocol 2 MCG/MIN MEROPENEM/NS 1 GRAM/100 ML 1 gram in 100 mls @ 100 mls/hr 04/12/21 22:00 04/14/21 22:05 Merrem/Ns 1 Gram/100 Ml IV 100 mls/hr Q24H INESSA Administration Protocol Sodium Chloride 1,000 mls @ 1 mls/hr 04/14/21 16:45 04/14/21 16:57 Nacl 0.9% 1000 Ml IV 1 mls/hr DIRECT INESSA Administration Insulin Human Lispro 0 unit 03/14/21 12:00 04/15/21 06:07 Insulin Lispro 100 Unit/Ml SUB-Q Not Given Q6HR INESSA Protocol Lorazepam 1 mg 03/13/21 19:40 03/30/21 19:58 Lorazepam 2 Mg/Ml Vial IV 1 mg Q4H PRN Administration Anxiety Multi-Ingred Cream/Lotion/Oil/Oint 1 applic 03/14/21 17:50 04/10/21 22:03 Mineral Oil/Petrolatum, White Ophth Oint 3.5 Gm OU 1 applic Q4HR PRN Administration Dry Eye(s) Ondansetron HCl 4 mg 03/13/21 19:30 03/21/21 12:05 Ondansetron 4 Mg/2 Ml Inj IV 4 mg Q8H PRN Administration Nausea And Vomiting Quetiapine Fumarate 300 mg 04/06/21 22:00 04/14/21 22:05 Quetiapine 100 Mg Tab PO 300 mg BID INESSA Administration Senna/Docusate Sodium 1 tab 03/14/21 22:00 04/14/21 22:06 Sennosides/Docusate Sodium 8.6/50 Mg Tab FEEDTUBE Not Given BID INESSA Simple Syrup 15 ml 04/09/21 17:17 Simple Syrup 15 Ml FEEDTUBE PRN PRN Hypoglycemia Simple Syrup 30 ml 04/09/21 17:17 Simple Syrup 15 Ml FEEDTUBE PRN PRN Hypoglycemia Sodium Bicarbonate 325 mg 04/09/21 17:17 Sodium Bicarbonate 325 Mg Tab FEEDTUBE PRN PRN For Clogged Feeding Tube Sodium Chloride 10 ml 03/13/21 22:00 04/14/21 22:17 Sodium Chloride 0.9% 10 Ml Flush Syringe IV 10 ml BID INESSA Administration Sodium Chloride 10 ml 03/13/21 19:30 Sodium Chloride 0.9% 10 Ml Flush Syringe IV PRN PRN LINE FLUSH Nutrition/Malnutrition Assess - Dietary Evaluation Nutrition/Malnutrition Findings: Nutrition Notes Start: 03/15/21 11:06 Freq: Status: Active Protocol: Document 04/14/21 11:13 CANDACE (Rec: 04/14/21 11:52 CANDACE [id number]) Nutrition Notes Initial or Follow up Reassessment Other Pertinent Diagnosis [id number], Transaminitis, Hyperglycemia. Current Diet TF -Glucerna 1.2 Abdullahi (since L 04/14). Labs/Tests 04/14: BUN 74, Crea 3.1, Glu 220. Pertinent Medications 04/14 Vit C, D50w (25 g) mEq, Insulin, Zn, Propofol 1,000 mg /100 ml @ 4.26 ml/hr, others nutritionally unremarkable. Height 5 ft 5 in Weight 142 kg Ellis Body Weight (kg) 56.81 BMI 52.0 Weight change and time frame No new reports on body weight changes, Weight Status Morbidly Obese Subjective/Other Information RD consult on change TF from Nepro w/CARBSTEADY to Glucerna 1,2 Abdullahi, due to lack of stock Nepro. Percent of energy/protein needs met: 100% Kcal; 85% AA. Burn Absent Trauma Absent GI Symptoms None Food Allergy No Skin Integrity/Comment Clear, warm, dry. Current % PO Other Minimum of two criteria No Is patient on ventilator? Yes Is Patient Ambulatory and/or Out of Bed No REE-([facility]-confined to bed) 2570.232 Kcal/Kg value to use for calculation 14 Approximate Energy Requirements Using 1988 kcal/Kg Calculation Used for Recommendations Kcal/kg Additional Notes Pro needs >1.2g/kg adjBW: > 117g/day Fluid needs 1-1.5L/day Nutrition Intervention Nutrition Support: Change to Glucerna 1.2 Abdullahi @ 69 ml/hr. Flush: 109 ml water Q 4 hr. Kcal 1,988 Protein (gm) 99 Carbohydrates (gm) 190 Fat (gm) 99 Fluid (mL) 1,334 Fiber (gm) 27 % RDI: 100% Kcal; 85% AA. Goal #1 Maintain body weight within +/ -3% of admission BWt during LOS. Goal #2 Reach and maintain acceptable chemistry lab values during LOS. Follow-Up By: 04/16/21 Additional Comments Continue monitoring TF tolerance, Hydration, and BM.
[2021-04-04 21:27] LABS: ABG Base Excess -2.7 mmol/L (-2.0-3.0); ABG HCO3 24.6 mmol/L (20.0-26.0); ABG Methemoglobin 0.5 % (0.0-1.5); ABG Oxygen Saturation 91.6 % (95.0-99.0); ABG PCO2 56.6 mm Hg; ABG PH 7.257 pH Units (7.350-7.450); ABG PO2 73.8 mm Hg (80.0-90.0)
[2021-04-04] MEDS: methylPREDNISolone Sod Succinate 125 MG/2 ML INJ IV SCH (21:33)
[2021-04-05] MEDS: INSULIN LISPRO 100 UNIT/ML SUB-Q SCH ×4 (00:11→17:50)
[2021-04-05] MEDS: fentaNYL DRIP Premix 2,000 MCG/100 ML BAG IV SCH ×5 (02:20→21:18)
[2021-04-05] MEDS: IPRATROPIUM/ALBUTEROL SULFATE 3 ML AMPUL.NEB IH SCH ×4 (03:45→19:40)
[2021-04-05] MEDS: methylPREDNISolone Sod Succinate 125 MG/2 ML INJ IV SCH ×3 (05:29→21:20)
[2021-04-05 06:09] LABS: Albumin 2.7 g/dL (3.9-5); Calcium 7.4 mg/dL (8.4-10.2)
[2021-04-05 06:19] LABS: Hematocrit 24.4 % (30.3-42.9); Hemoglobin 8.4 gm/dl (10.1-14.3); Mean Corpuscular HGB Conc 35 % (30-34); Mean Corpuscular Volume 86 fl (79-97); Platelet Count 153 K/mm3 (140-440); Red Blood Count 2.83 M/mm3 (3.65-5.03); Red Cell Distribution Width 18.9 % (13.2-15.2)
[2021-04-05] MEDS: NORepinephrine/NS 8 MG-250 ML 8 MG/250 ML INFUS..BTL IV SCH ×2 (06:25→16:03)
[2021-04-05] MEDS: VASOPRESSIN 20 UNIT in SODIUM CHLORIDE 0.9% 100 ML IV SCH ×2 (07:44→19:11)
--- NOTE | 2021-04-05 08:58 | Electrocardiograph Report ---
[facility] Test Date: 2021-04-05 Test Time: 08:07:39 Pat Name: LAURA QUINTANILLA Department: Room: A261 1 Gender: F Test Lab Technician: JUSTIN : 1990 Requested By: KEIRA PEOPLES Order Number: [id number] Reading MD: Pb Rice Measurements Intervals [place] Rate: 103 P: 61 CA: 118 QRS: 68 QRSD: 96 T: -74 QT: 334 QTc: 439 Interpretive Statements Sinus tachycardia Compared to ECG 03/21/2021 09:19:36 Early repolarization no longer present Possible ischemia no longer present Electronically Signed On 04-05-2021 8:58:05 EST by Pb Rice
--- NOTE | 2021-04-05 09:19 | Progress Note ---
Assessment and Plan Impression/Plan: #Acute kidney injury: dialysis dependent - s/p HD on 04/03, minimal uf due to low bp - plans for HD today as hemodynamics allow for UF removal, acidosis - daily lytes - Assess daily for needs for additional sessions as hemodynamics - Strict input and output - Avoid nephrotoxins - Renally dose medications - Keep MAP > 65 #Hyperkalemia: stable today, HD today #Respiratory failure Covid 19 infection currently intubated UF as tolerated with HD, limited by hemodynamic instability #Hyperphosphatemia to be monitored Dialysis has been initiated #Hyponatremia: HD today #diffuse rash--Hematology plans noted, plasma exchange noted #Overall prognosis remains poor, palliative care appropriate Subjective Date of service: 04/05/21 Principal diagnosis: Ac hypoxemic resp failure; AE-Asthma; SAI; Crohn's; COVID- 19; Pneumonia Interval history: Remains intubated, FiO2 50%, on 3 pressors Objective - Exam Narrative Exam: General appearance: Intubated and sedated, obese Head: NC/AT Neck: Absent: masses or JVD, cervical LAD Respiratory: coarse mechanical sounds Heart: Present: S1 & S2, mildly tachycardic Extremities: pulses intact, pulses symmetrical; 3+ edema Peripheral Pulses: within normal limits General gastrointestinal: soft, non-tender Integumentary: dry Neurologic: sedated - Vital Signs Vital signs: Vital Signs - 12hr 04/04/21 04/04/21 04/04/21 21:31 22:00 22:13 Temperature Pulse Rate 113 H 115 H 116 H Pulse Rate [ From Monitor] Respiratory 37 H 35 H 35 H Rate Blood Pressure 110/61 103/53 103/53 O2 Sat by Pulse 99 100 99 Oximetry 04/04/21 04/04/21 04/04/21 22:31 23:00 23:24 Temperature Pulse Rate 115 H 112 H 110 H Pulse Rate [ From Monitor] Respiratory 34 H 33 H Rate Blood Pressure 103/53 103/63 99/56 O2 Sat by Pulse 99 95 92 Oximetry 04/04/21 04/05/21 04/05/21 23:31 00:00 00:31 Temperature 98.2 F Pulse Rate 110 H 110 H 108 H Pulse Rate [ 108 H From Monitor] Respiratory 34 H 35 H 33 H Rate Blood Pressure 103/63 110/71 110/71 O2 Sat by Pulse 91 92 94 Oximetry 1104/05/21 04/05/21 01:01 01:31 02:00 Temperature Pulse Rate 109 H 109 H 109 H Pulse Rate [ From Monitor] Respiratory 32 H 34 H 35 H Rate Blood Pressure 124/55 124/55 119/75 O2 Sat by Pulse 94 96 Oximetry 04/05/21 04/05/21 04/05/21 02:30 03:00 03:31 Temperature Pulse Rate 109 H 106 H 108 H Pulse Rate [ From Monitor] Respiratory 34 H 33 H 34 H Rate Blood Pressure 124/55 109/53 119/75 O2 Sat by Pulse 98 96 98 Oximetry 04/05/21 04/05/21 04/05/21 03:59 04:00 04:31 Temperature 98.2 F Pulse Rate 108 H 108 H 110 H Pulse Rate [ 108 H From Monitor] Respiratory 34 H 35 H Rate Blood Pressure 106/54 112/53 O2 Sat by Pulse 96 95 100 Oximetry 04/05/21 04/05/21 04/05/21 05:00 05:31 06:00 Temperature Pulse Rate 113 H 106 H 104 H Pulse Rate [ From Monitor] Respiratory 37 H 32 H 32 H Rate Blood Pressure 120/63 120/63 105/45 O2 Sat by Pulse 97 99 95 Oximetry 04/05/21 04/05/21 04/05/21 06:31 07:00 07:31 Temperature Pulse Rate 104 H 102 H 101 H Pulse Rate [ From Monitor] Respiratory 33 H 32 H 32 H Rate Blood Pressure 120/63 91/43 91/43 O2 Sat by Pulse 98 98 96 Oximetry 04/05/21 04/05/21 08:00 08:31 Temperature 97.7 F Pulse Rate 102 H 102 H Pulse Rate [ From Monitor] Respiratory 31 H 31 H Rate Blood Pressure 90/40 90/40 O2 Sat by Pulse 93 92 Oximetry - Lab 04/05/21 05:20 04/05/21 05:20 Most recent lab results ABG pH 7.257 pH Units (7.350-7.450) L 04/04/21 21:14 ABG pCO2 56.6 mm Hg 04/04/21 21:14 ABG pO2 73.8 mm Hg (80.0-90.0) L 04/04/21 21:14 ABG HCO3 24.6 mmol/L (20.0-26.0) 04/04/21 21:14 ABG O2 Saturation 91.6 % (95.0-99.0) L 04/04/21 21:14 Calcium 7.4 mg/dL (8.4-10.2) L 04/05/21 05:20 Phosphorus 9.40 mg/dL (2.5-4.5) H 04/05/21 05:20 Magnesium 2.10 mg/dL (1.7-2.3) 04/05/21 05:20 Urine Creatinine 40.1 mg/dL (0.1-20.0) H 03/14/21 17:50 Urine Sodium 124 mmol/L 03/14/21 17:50 Medications & Allergies - Medications Allergies/Adverse Reactions: Allergies oxycodone HCl [From Percocet] Allergy (Severe, Verified 03/30/21 14:01) Swelling hydrocodone bitartrate [From Vicodin] Allergy (Verified 03/31/21 08:20) Swelling ALLERGY TO TYLENOL VS OXYCODONE ACTIVE ORDER REMOVED FROM [facility] SINCE UNABLE TO CONFIRM WITH FAMILY Home Medications: Home Medications Medication Instructions Recorded Confirmed Last Taken Type Chlorhexidine Mouthwash [Peridex] 15 ml MM BID #1 bottle 10/11/20 03/13/21 Unknown Rx Clindamycin [Clindamycin CAP] 300 mg PO Q8H #21 cap 10/11/20 03/13/21 Unknown Rx Naproxen 500 mg PO Q12H PRN #12 tablet 10/11/20 03/13/21 Unknown Rx Butalb/Acetamin/Caff 50-325-40 1 - 2 tab PO Q6HR PRN #15 tab 12/05/20 03/13/21 Unknown Rx [Fioricet 50-325-40] Famotidine [Pepcid] 20 mg PO BID #30 tablet 12/05/20 03/13/21 Unknown Rx Ketorolac [Toradol] 10 mg PO Q8H PRN #20 tablet 12/05/20 03/13/21 Unknown Rx Ondansetron [Zofran Odt] 4 mg PO Q6HR PRN #20 tab.rapdis 12/05/20 03/13/21 Unknown Rx Albuterol Sulfate [Proair 90 mcg IH Q4HR PRN #2 aer.[email or web address] 01/01/21 03/13/21 Unknown Rx Respiclick] Mupirocin [Bactroban 2% OINT] 1 applic TP BID 7 Days #1 tube 01/01/21 03/13/21 Unknown Rx Triamcinolone Aceton 0.1% (Nf) 1 applic TP BID 14 Days #1 tube 01/01/21 03/13/21 Unknown Rx [Kenalog (NF)] predniSONE [Deltasone] 40 mg PO QDAY #8 tab 01/01/21 03/13/21 Unknown Rx Active Medications: Generic Name Dose Route Start Last Admin Trade Name Freq PRN Reason Stop Dose Admin Acetaminophen 650 mg 03/31/21 12:41 04/04/21 09:50 Acetaminophen 325 Mg/10.15 Ml Oral Liqd Unit Dose FEEDTUBE 650 mg Q6H PRN Administration TEMP >/=100.4 Albumin Human 25 gm 04/01/21 08:19 04/01/21 16:23 Albumin Human 25% (25 Gm/100 Ml) Inj IV 25 gm KARLOS PRN Administration Hypotension Albuterol 2.5 mg 03/19/21 00:53 Albuterol 2.5 Mg/3 Ml Nebu IH Q4HRT PRN Shortness Of Breath Albuterol/Ipratropium 1 ampul 03/19/21 08:00 04/05/21 08:42 Ipratropium/Albuterol Sulfate 3 Ml Ampul.Neb IH 1 ampul Q6HRT INESSA Administration Lipase/Protease/Amylase 1 each 03/15/21 11:42 Lipase 10,500/Protease 25,000/Amylase 43,750 (Units) Dr White FEEDTUBE PRN PRN For Clogged Feeding Tube Apixaban 2.5 mg 03/29/21 13:00 04/04/21 21:31 Apixaban 2.5 Mg Tab PO 2.5 mg Q12HR INESSA Administration Protocol Ascorbic Acid 500 mg 03/14/21 22:00 04/04/21 21:30 Ascorbic Acid 500 Mg Tab PO 500 mg BID INESSA Administration Calcium Acetate 1,334 mg 04/03/21 20:00 04/04/21 21:30 Calcium Acetate 667 Mg Cap FEEDTUBE 1,334 mg TID INESSA Administration Dextrose 50 ml 03/14/21 11:02 03/15/21 11:40 Dextrose 50% In Water (25gm) 50 Ml Syringe IV 50 ml Q30MIN PRN Administration Hypoglycemia Protocol Famotidine 10 mg 03/17/21 22:00 04/04/21 21:30 Famotidine 10 Mg Tab PO 10 mg BID INESSA Administration Fentanyl 50 mcg 03/15/21 10:43 03/28/21 09:25 Fentanyl 100 Mcg/2 Ml Inj IV 50 mcg Q10MIN PRN Administration ANALGESIA Hydrophilic Ointment 1 applic 03/14/21 17:50 Lip Therapy Vaseline TP Q2HR PRN Dry Lips Propofol 1,000 mg in 100 mls @ 4.123 mls/hr 03/15/21 11:00 04/05/21 07:39 Diprivan 10 Mg/Ml IV 50 mcg/kg/min TITR INESSA 41.231 mls/hr Administration Protocol 5 MCG/KG/MIN Fentanyl Citrate 2,000 mcg in 100 mls @ 6.872 mls/hr 03/15/21 11:00 04/05/21 06:21 Fentanyl Drip Premix IV 4 mcg/kg/hr TITR INESSA 27.488 mls/hr Administration Protocol 1 MCG/KG/HR Sodium Chloride 500 mls @ 1 mls/hr 03/16/21 17:19 Nacl 0.9% 500 Ml IV DIRECT PRN ARTERIAL LINE FLUSH NORepinephrine/NS 8 MG-250 ML 8 mg in 250 mls @ 3.75 mls/hr 03/23/21 11:00 04/05/21 06:25 Norepinephrine/Ns 8 Mg-250 Ml (Double Conc) IV 10 mcg/min TITRATE INESSA 18.75 mls/hr Administration Protocol 2 MCG/MIN Midazolam HCl 100 mg/ Sodium 100 mls @ 1 mls/hr 03/30/21 15:00 04/04/21 22:45 Chloride IV 7 mg/hr TITR INESSA 7 mls/hr Administration Protocol 1 MG/HR Vasopressin 20 unit/ Sodium 101 mls @ 9.09 mls/hr 03/30/21 20:00 04/05/21 07:44 Chloride IV 0.03 units/min TITR INESSA 9.09 mls/hr Administration 0.03 UNITS/MIN Phenylephrine HCl 100 mg/ 100 mls @ 3 mls/hr 03/31/21 04:00 04/05/21 05:31 Sodium Chloride IV 40 mcg/min TITR INESSA 2.4 mls/hr Titration Protocol 50 MCG/MIN Sodium Chloride 100 mls @ 999 mls/hr 04/01/21 08:19 Nacl 0.9% IV KARLOS PRN Hypotension Sodium Bicarbonate 150 meq/ 1,150 mls @ 75 mls/hr 04/02/21 22:00 04/03/21 13:42 Dextrose IV 75 mls/hr DIRECT INESSA Administration Insulin Human Lispro 0 unit 03/14/21 12:00 04/05/21 05:29 Insulin Lispro 100 Unit/Ml SUB-Q 2 unit Q6HR INESSA Administration Protocol Lorazepam 1 mg 03/13/21 19:40 03/30/21 19:58 Lorazepam 2 Mg/Ml Vial IV 1 mg Q4H PRN Administration Anxiety Methylprednisolone Sodium Succinate 80 mg 04/04/21 22:00 04/05/21 05:29 Methylprednisolone Sod Succinate 125 Mg/2 Ml Inj IV 80 mg Q8HR INESSA Administration Midazolam HCl 2 mg 03/30/21 14:19 03/30/21 14:30 Midazolam 2 Mg/2 Ml Inj IV 2 mg Q10MIN PRN Administration Sedation Multi-Ingred Cream/Lotion/Oil/Oint 1 applic 03/14/21 17:50 04/02/21 14:31 Mineral Oil/Petrolatum, White Ophth Oint 3.5 Gm OU 1 applic Q4HR PRN Administration Dry Eye(s) Ondansetron HCl 4 mg 03/13/21 19:30 03/21/21 12:05 Ondansetron 4 Mg/2 Ml Inj IV 4 mg Q8H PRN Administration Nausea And Vomiting Quetiapine Fumarate 100 mg 04/04/21 14:00 04/04/21 21:31 Quetiapine 100 Mg Tab PO 100 mg BID INESSA Administration Quetiapine Fumarate 50 mg 04/04/21 14:00 04/04/21 21:31 Quetiapine 25 Mg Tab PO 50 mg BID INESSA Administration Senna/Docusate Sodium 1 tab 03/14/21 22:00 04/04/21 21:30 Sennosides/Docusate Sodium 8.6/50 Mg Tab FEEDTUBE 1 tab BID INESSA Administration Simple Syrup 15 ml 03/15/21 11:42 Simple Syrup 15 Ml FEEDTUBE PRN PRN Hypoglycemia Simple Syrup 30 ml 03/15/21 11:42 Simple Syrup 15 Ml FEEDTUBE PRN PRN Hypoglycemia Sodium Bicarbonate 325 mg 03/15/21 11:42 03/21/21 17:21 Sodium Bicarbonate 325 Mg Tab FEEDTUBE 325 mg PRN PRN Administration For Clogged Feeding Tube Sodium Chloride 10 ml 03/13/21 22:00 04/04/21 21:32 Sodium Chloride 0.9% 10 Ml Flush Syringe IV 10 ml BID INESSA Administration Sodium Chloride 10 ml 03/13/21 19:30 Sodium Chloride 0.9% 10 Ml Flush Syringe IV PRN PRN LINE FLUSH Zinc Sulfate 220 mg 03/14/21 22:00 04/04/21 21:30 Zinc Sulfate 220 Mg Cap PO 220 mg BID INESSA Administration
[2021-04-05] MEDS: CALCIUM ACETATE 667 MG CAP FEEDTUBE SCH ×3 (09:20→21:19)
[2021-04-05] MEDS: FAMOTIDINE 10 MG TAB PO SCH ×2 (09:20→21:19)
[2021-04-05] MEDS: QUEtiapine 100 MG TAB PO SCH (09:21)
[2021-04-05] MEDS: QUEtiapine 25 MG TAB PO SCH (09:21)
[2021-04-05] MEDS: ZINC SULFATE 220 MG CAP PO SCH ×2 (09:22→21:19)
[2021-04-05] MEDS: SENNOSIDES/DOCUSATE SODIUM 8.6/50 MG TAB FEEDTUBE SCH ×2 (09:23→21:21)
[2021-04-05] MEDS: ASCORBIC ACID 500 MG TAB PO SCH ×2 (09:25→21:19)
[2021-04-05] MEDS: APIXABAN 2.5 MG TAB PO SCH ×2 (09:25→23:20)
--- NOTE | 2021-04-05 10:34 | Progress Note ---
Assessment and Plan Cultures: SARS CoV2 PCR: Positive 03/13/2021 blood culture: No growth Resp cultures 03/14/2021: MSSA 03/23/2021 blood culture: No growth 03/23/2021 sputum culture: Usual respiratory maury 03/29/2021 blood culture: no growth A/P: 31-year-old female with asthma, morbid obesity, Crohn's disease admitted with cough and shortness of breath: #Septic shock: completed abx. #Bilateral pneumonia: Secondary to COVID-19. Severe disease, then developed MSSA in the lungs. D-dimer very high initially, which has shown improvement. #Acute hypoxic respiratory failure: on the vent. #Rash with eosinophilia: Question of drug reaction, remains off Cefepime and all other abx #Possible HUS, thrombocytopenia: s/p plasma exchange per hematology and pulse high dose steroids. #Acute renal failure: progressive. Nephrology following, initiated on HD. #Acute asthma exacerbation #Morbid obesity Recs: -s/p Actemra 03/15/2021, completed steroids for COVID -s/p plasma exchange per hematology and pulse high dose steroids. Continues on solumedrol -continue off abx, avoid further beta-lactams given concern for allergic reaction -extremely poor prognosis Donn Solano MD, FACP, [facility] O: [phone] F: [phone] Subjective Date of service: 04/05/21 Principal diagnosis: Ac hypoxemic resp failure; AE-Asthma; SAI; Crohn's; COVID- 19; Pneumonia Interval history: Remains critically ill, on the vent, on 3 pressors. Also on Arctic sun to regulate her temperature. Objective - Exam Narrative Exam: Physical Exam Constitutional: sedated, intubated, on the vent Head, Ears, Nose: Normocephalic, atraumatic. External ears, nose normal Eyes: Conjunctivae/corneas clear. No icterus. No ptosis. Neck: intubated Oral: intubated Cardiovascular: S1, S2 + Respiratory: AE fair bilaterally and equal GI: Soft, bowel sounds + Musculoskeletal: No pedal edema, no cyanosis. Hem/Lymphatic: No palpable cervical or supraclavicular nodes. No lymphangitis Psych: no agitation Neurological: sedated, intubated, on the vent, exam limited - Constitutional Vitals: Vital Signs Temp Pulse Resp BP Pulse Ox 97.7 F 102 H 31 H 90/40 92 04/05/21 08:00 04/05/21 08:31 04/05/21 08:31 04/05/21 08:31 04/05/21 08:31 Temperature -Last 24 Hours Temperature 97.7 F Temperature 96.6 F Temperature 98.2 F Temperature 98.2 F Temperature 98.2 F Temperature 98.6 F Temperature 98.6 F Temperature 98.6 F Temperature 98.4 F Temperature 97.7 F Temperature 97.7 F Temperature 98.1 F Temperature 98.2 F Temperature 98.2 F Temperature 98.2 F Temperature 98.2 F Temperature 98.2 F - Labs CBC & Chem 7: 04/05/21 05:20 04/05/21 05:20 Labs: Abnormal lab results 03/25/21 04/04/21 04/04/21 Range/Units 13:45 09:20 12:01 WBC (4.5-11.0) K/mm3 RBC (3.65-5.03) M/mm3 Hgb (10.1-14.3) gm/dl Hct (30.3-42.9) % MCHC (30-34) % RDW (13.2-15.2) % ABG pH (7.350-7.450) pH Units ABG pO2 (80.0-90.0) mm Hg ABG O2 Saturation (95.0-99.0) % ABG Base Excess (-2.0-3.0) mmol/L ABG Hemoglobin (12.0-16.0) gm/dl Oxyhemoglobin (95.0-99.0) % Sodium (137-145) mmol/L Chloride (98-107) mmol/L Carbon Dioxide (22-30) mmol/L BUN (7-17) mg/dL Creatinine (0.6-1.2) mg/dL Glucose (65-100) mg/dL POC Glucose 199 H (70-105) mg/dL Calcium (8.4-10.2) mg/dL Phosphorus (2.5-4.5) mg/dL Alkaline Phosphatase (35-129) units/L Lactate Dehydrogenase (91-180) units/L Total Protein (6.3-8.2) g/dL Albumin (3.9-5) g/dL Crossmatch See Detail See Detail 04/04/21 04/04/21 04/04/21 Range/Units 14:06 17:05 21:14 WBC (4.5-11.0) K/mm3 RBC (3.65-5.03) M/mm3 Hgb (10.1-14.3) gm/dl Hct (30.3-42.9) % MCHC (30-34) % RDW (13.2-15.2) % ABG pH 7.162 L* 7.257 L (7.350-7.450) pH Units ABG pO2 91.3 H 73.8 L (80.0-90.0) mm Hg ABG O2 Saturation 94.8 L 91.6 L (95.0-99.0) % ABG Base Excess -4.0 L -2.7 L (-2.0-3.0) mmol/L ABG Hemoglobin 7.6 L 8.6 L (12.0-16.0) gm/dl Oxyhemoglobin 92.4 L 89.1 L (95.0-99.0) % Sodium (137-145) mmol/L Chloride (98-107) mmol/L Carbon Dioxide (22-30) mmol/L BUN (7-17) mg/dL Creatinine (0.6-1.2) mg/dL Glucose (65-100) mg/dL POC Glucose 166 H (70-105) mg/dL Calcium (8.4-10.2) mg/dL Phosphorus (2.5-4.5) mg/dL Alkaline Phosphatase (35-129) units/L Lactate Dehydrogenase (91-180) units/L Total Protein (6.3-8.2) g/dL Albumin (3.9-5) g/dL Crossmatch 04/04/21 04/05/21 04/05/21 Range/Units 23:30 05:20 05:20 WBC 30.8 H (4.5-11.0) K/mm3 RBC 2.83 L (3.65-5.03) M/mm3 Hgb 8.4 L (10.1-14.3) gm/dl Hct 24.4 L (30.3-42.9) % MCHC 35 H (30-34) % RDW 18.9 H (13.2-15.2) % ABG pH (7.350-7.450) pH Units ABG pO2 (80.0-90.0) mm Hg ABG O2 Saturation (95.0-99.0) % ABG Base Excess (-2.0-3.0) mmol/L ABG Hemoglobin (12.0-16.0) gm/dl Oxyhemoglobin (95.0-99.0) % Sodium 131 L (137-145) mmol/L Chloride 91.2 L (98-107) mmol/L Carbon Dioxide 17 L (22-30) mmol/L BUN 85 H (7-17) mg/dL Creatinine 5.1 H (0.6-1.2) mg/dL Glucose 183 H (65-100) mg/dL POC Glucose 158 H (70-105) mg/dL Calcium 7.4 L (8.4-10.2) mg/dL Phosphorus (2.5-4.5) mg/dL Alkaline Phosphatase 190 H (35-129) units/L Lactate Dehydrogenase 394 H (91-180) units/L Total Protein 5.8 L (6.3-8.2) g/dL Albumin 2.7 L (3.9-5) g/dL Crossmatch 04/05/21 04/05/21 Range/Units 05:20 05:24 WBC (4.5-11.0) K/mm3 RBC (3.65-5.03) M/mm3 Hgb (10.1-14.3) gm/dl Hct (30.3-42.9) % MCHC (30-34) % RDW (13.2-15.2) % ABG pH (7.350-7.450) pH Units ABG pO2 (80.0-90.0) mm Hg ABG O2 Saturation (95.0-99.0) % ABG Base Excess (-2.0-3.0) mmol/L ABG Hemoglobin (12.0-16.0) gm/dl Oxyhemoglobin (95.0-99.0) % Sodium (137-145) mmol/L Chloride (98-107) mmol/L Carbon Dioxide (22-30) mmol/L BUN (7-17) mg/dL Creatinine (0.6-1.2) mg/dL Glucose (65-100) mg/dL POC Glucose 162 H (70-105) mg/dL Calcium (8.4-10.2) mg/dL Phosphorus 9.40 H (2.5-4.5) mg/dL Alkaline Phosphatase (35-129) units/L Lactate Dehydrogenase (91-180) units/L Total Protein (6.3-8.2) g/dL Albumin (3.9-5) g/dL Crossmatch
--- NOTE | 2021-04-05 11:48 | Progress Note ---
<ANCELMO GONZALEZ - Last Filed: 04/05/21 19:40> Assessment and Plan Assessment and plan: This is a 31-year-old female with asthma, morbid obesity and Crohn's disease admitted for Acute hypxemic respiratory failure 2/2 COVID PNA requiring ventilatory support and acute renal failure now on HD. Hospital Course to Date: 03/14/21- Patient is s/p intubation from this morning, sedated on propofol and fentanyl RASS -3 to -4. ETT above the clavicles advanced by 2cc. Continue nebs and IV steroids per [facility]. COVID swab pending. Hyperkalemia improved, X1 dose of kayaxalate ordered. Low BP and low urine output this am, fluid bolus challenge, 500cc of NS bolus given. Continue to monitor electrolytes and renal function, repeat BMP this afternoon. 03/15: Patient's renal function noted to be significantly worse today, patient was hyperkalemic and this was medically treated. Patient initiated on hemodi alysis today. infectious disease was consulted today. 03/16: No acute events reported overnight, patient received hemodialysis yesterday. Patient is currently on propofol and fentanyl. 03/17: Patient received hemodialysis today, patient is slightly acidotic on ABG however [facility] is allowing for permissive hypercapnia, tracheal aspirate with Staph aureus and ID is aware. 03/18: Patient is having high residuals today and Reglan was started, patient will receive HD daily per nephrology, correct her change in FiO2 as tolerated. 03/19: HD per nephrology today, antibiotics changed to cefazolin. Patient did not tolerate tube feedings as she had high residuals this morning and they were turned off. Not restarted yet. Updated family at bedside today 03/20: HD today, ddimer noted to be >1000, Tolerating trickle TF. Stat BLE dopplar US 03/21: Patient is not tolerating TF, CXR shows worsening infiltrates, [facility] made changes to vent, TF on hold and started on IVF. 03/22/21- Patient remains intubated and on sedation. Persistent vomiting, TF held overnight, no documented BM, on reglan BR added, Shaun citarte & supp. HD today. Plan to restart TF at 10ml/hr, will reevaluate in the am. Persistent thro mbocytopenia, Hep on hold, HIT panel ordered, PO eliquis initiated. 03/23/21- Patient remains on the vent and sedated on propofol and fentanyl RASS - 2 to -3. Possible SAT today as tolerated. Patient tolerated trickle feeds overnight, plan to advance TF by 10cc Q8 to 12hrs. Continue current BR and co ntinue reglan for now. Slightr worsening in acidosis from this am, d/w [facility] vent setting adjusted, will repeat ABG at 9pm. 03/24/21- Patient is on the vent and sedated, on fentanyl and propfol. Bilateral subconjunctival hemorrhage with periorbital edema noted this am, pupils are round and reactive, will Cipro/Dex [id number]. Worsening of kidney function from today's labs, plan for HD per Nephro. 03/25/21- Patient remains intubated and on sedatin, RASS 0 to -1, no longer on pressors. Sudden drop in H&H this am, bilateral subconjunctival hemorrhage with no sig change, no signs of any active bleeding. Patient appears neurologically intact, following commands, pupils are round and reactive with + gag and cough, moved all extremities. D/w [facility] patient is too unstable for CT at this time. Eliquis D/Devaughn, 1unit of PRBC ordered. Will continue to trend CBC. Plan for another section of HD today 03/26/21- Patient remains on the vent and sedated. VENICE reported from overnight. Plan for HD again today. H&H back up and stable, no AC at this time, SCDs for VTE phro. D/w [facility] patient is still too unstable for CT scan, will continue neuro exam and will continue to monitor H&H. 03/27/21- VENICE overnight. remains on the vent and sedated. Red localized rashes noted in patient upper chest and face, will r/o allergic reaction,CBC with auto diff and urine eosinophils ordered. Plan for HD today per Nephro. 03/28/21- Patient remains on the vent and sedated. Persistent fevers overnight unrelieved with antipyretic, currently on a cooling blanket. Back on pressors for hypotension, patient already on IV abx, last blood cultureX2 and sputum culture from 03/23 were negative. Continue IV abx, will reculture patient, orders placed for B.culture and sputum culture. ID is also on consult. will continue F/u on culture and continue to monitor BMP and CBC. 03/29: Patient restarted on prednisone given splotchy rash, will resume apixaban for VTE prophylaxis and repeat ABG at 9 PM. Remains with leukocytosis, elevated BUN/creatinine, elevated triglycerides and on Levophed 03/30: HD today, rash is still present and started on IV steroids. plt is low today but will continue to monitor. [facility] made changes to vent-> decrease in MV. ABG in the pm and possible punch biopsy tomorrow if rash is not improved. p ropofol changed to versed 03/31: Heme/oncology consulted yesterday, will start patient on plasmapheresis for possible HUS. Cefepime discontinued today as today was the last day. Patient started on pulse dose steroids of 1 g/day for 3 days. Some improvement noted to eyes this morning. Patient was febrile overnight and received ibuprofen overnight. Acetaminophen allergy confirmed with family, allergy is only to oxycodone and hydrocodone but not the acetaminophen component. Confirmed by family patient has no reaction to [id number] Tylenol. Remains on vasopressor support and sedated with fentanyl, propofol and Versed. Vent mode changed to pressure control ventilation. Patient started on Arctic sun for fever control. Mother updated over telephone this a.m. and this p.m. family meeting held with her mother, sister x 2 and brother and with 2 other unknown people over the phone (1 female and one male) and nurse. Family states that patient is likely to an antibiotic possibly penicillins. This information was not available to us before. 04/01: Hyperkalemia medically treated, patient scheduled for dialysis today, plasmapheresis for possible HUS scheduled for today, steroids should be ending tomorrow, generalized rash/discoloration minimally better. Patient still remains on Arctic sun for temperature regulation. Vent changes per [facility]. 04/02: remains on artic sun but water temp noted to be in the 30s today. Completed plasmapheresis x2 and is now on steroid taper however minimal change noted to rash/discoloration. Eyes are more clear today but remain red under lids (tops of eye). Acidosis noted on ABG. Hyperkalemia and hyperphosphatemeia persists. Sedation increased for RR in to the 40s-50s and vasopressors being titrated as tolerated. 04/04: Patient receiving 1 unit PRBC per heme's recommendation, increased respiratory effort noted, patient is acidotic on ABG and given 1 amp of bicarb in addition to bicarb drip, sedation increased for vent synchrony. No HD per nephrology given tachycardia. Seroquel started. 04/05: Patient on the vent and sedated, still on 3 pressors. Patient to wean off propofol gtt, seroquel increased. Patient afebrile overnight, however artic sun is still in place. Will attempt to take off the cooling blanket today, will continue to assess for fever curve. Continue current IV Abx therapy per ID. Plan for HD today per Nephro. Patient's family at the bedside, thoroughly discussed patient's condition and overall poor prognosis. All questions and concerns were addressed. Team will continue to f/u with family with further updates. Assessment and Plan #Neuro: Sedated - Intubated and sedated on propofol and fentanyl and versed - Seroquel increased - Plan to wean off propofol, RASS goal of 0 to -3 - EKg ordered for the am - Daily SAT and SBT per CCM - Avoid benzodiazepine to reduce the possibility of delirium - Prn analgesia for CPOT greater than 3 - Maintenance of sleep-wake cycle #CV: Tachycardia, s/p hypertension now with hypotension - Remains ST on the monitor - Remains on high dose pressors - Vasopressor support with levophed, vasopressin and Anthony-Synephrine - Continue blood pressure monitor per protocol - Maintain MAP above 65 - Continue AC- Eliquis and SCDs for VTE proph #Respiratory: Acute hypoxic respiratory failure #asthma exacerbation #COVID-19 pneumonia/ARDS, #RUL PNA #Bronchospasm (resolved) - ETT on 03/14 - Vent setting: AC/PC- 50%,10,30,max PS60 - AM ABG noted - CCM consulted, appreciate recommendations - Continue IV Steroids and Nebs - Plan to taper steroids - VAP bundle addressed - Aspiration precaution HOB above 30 - Daily SBT and SAT trials as tolerated - Daily ABG and CXR per CCM - Continue SPO2 monitoring for SPO2 goal above 92% #GI: transaminitis #h/o MO and Crohn's disease -Nutrition consulted, appreciate recommendations -Tube feeding: Nepro at goal -Free water 100 mL every 4 hours -Continue BR: Senokot -COntinue PPI -BMS in place #: Acute kidney injury likely secondary to ATN #hyponatremia - Initial Scr was wnl - Scr as high as 10.8, 5.1 this am - Patient is now anuric - Nephrology consulted, appreciate recommendations - HD initiated 03/15 - Plan for DH today, possible 1L out is patient tolerate it - Daily weights - Strict intake and output - Avoid nephrotoxic medications; Renally dose medications - Continue IVF for now - Monitor and replace electrolytes as needed #ID: COVID-19 pneumonia #Leukocytosis - 03/14 COVID-19 PCR (+); - 03/14 tracheal aspirate with Staph aureus; 04/10 COVID PCR (-) - B.cultures are negative - WBCs back up, 30.8, probably reactive - Afebrile overnight, patient remains on artic sun - Plan to D/C artic sun today - Patient received X1 dose of redemsevir, was D/C due to worsen renal function - S/p X1 dose actemra - Continue IV Abx per ID - Trend COVID-19 inflammatory markers - Isolation/droplet precautions - On Vitamin C/vitamin D/zinc - Daily CBC monitor -Infectious disease consulted, appreciate recommendations #Heme: ?HUS vs drug reaction #Conjunctival hemorrhage- resolved - s/p plasmapheresis x2 (04/01-04/02) -Trend CBC -Transfuse hemoglobin less than 7 - Continue Eliquis, restarted on 03/29 - SCDs to bilateral lower extremity while in bed - BLE duplex US shows no DVT - HIT negative #Endo: Hyperglycemia - Hemoglobin A1c 6.3 - SSI Q6hrs - Avoid hypoglycemia - While critically ill target blood glucose of 140-180 The high probability of a clinically significant, sudden or life threatening deterioration of the [multiple] system(s) required my full and direct attention, intervention and personal management. The aggregate critical care time was [60] minutes. This time is in addition to time spent performing reported procedures but includes the following: [x] Data Review and interpretation [x] Patient assessment and monitoring of vital signs [x] Documentation [x] Medication orders and management Disposition Plan: ICU Total Time Spent with Patient (Minutes): 60 History Interval history: Patient is seen and examined at the bedside. Patient remains on the vent and sedated on propol, fent, and versed. RASS -5, pupils are round and reactive, with + cough and gag. Patient remains on high dose pressors Hospitalist Physical - Constitutional Vitals: Temp Pulse Resp BP Pulse Ox 97.7 F 102 H 31 H 90/40 92 04/05/21 08:00 04/05/21 08:31 04/05/21 08:31 04/05/21 08:31 04/05/21 08:31 General appearance: Present: no acute distress, well-nourished, obese, other (Intubated and sedated) - EENT Eyes: Present: PERRL - Respiratory Respiratory effort: normal Respiratory: bilateral: diminished - Cardiovascular Rhythm: regular Heart Sounds: Present: S1 & S2 - Extremities Extremities: no ischemia, pulses intact, pulses symmetrical Extremity abnormal: edema - Peripheral Assessment Generalized Edema Type: Pitting Edema Degree: 3+ Capillary Refill: < 3 seconds Skin Temperature: Warm Peripheral Pulses: within normal limits - Abdominal General gastrointestinal: soft, non-tender, normal bowel sounds - Integumentary Integumentary: Present: warm, dry, erythema - Psychiatric Psychiatric: other (Intubated and sedated) - Neurologic Neurologic: other (Intubated and sedated) - Allied Health Allied health notes reviewed: nursing Results - Labs CBC & Chem 7: 04/05/21 05:20 04/05/21 05:20 Labs: Laboratory Last Values WBC 30.8 K/mm3 (4.5-11.0) H 04/05/21 05:20 RBC 2.83 M/mm3 (3.65-5.03) L 04/05/21 05:20 Hgb 8.4 gm/dl (10.1-14.3) L 04/05/21 05:20 Hct 24.4 % (30.3-42.9) L 04/05/21 05:20 MCV 86 fl (79-97) 04/05/21 05:20 MCH 30 pg (28-32) 04/05/21 05:20 MCHC 35 % (30-34) H 04/05/21 05:20 RDW 18.9 % (13.2-15.2) H 04/05/21 05:20 Plt Count 153 K/mm3 (140-440) 04/05/21 05:20 Lymph % (Auto) 10.7 % (13.4-35.0) L 03/28/21 09:37 [place] % (Auto) 5.2 % (0.0-7.3) 03/28/21 09:37 Eos % (Auto) [employer]st 04/03/21 04:30 Baso % (Auto) 0.2 % (0.0-1.8) 03/28/21 09:37 Lymph # (Auto) 1.7 K/mm3 (1.2-5.4) 03/28/21 09:37 [place] # (Auto) 0.9 K/mm3 (0.0-0.8) H 03/28/21 09:37 Eos # (Auto) 0.6 K/mm3 (0.0-0.4) H 03/28/21 09:37 Baso # (Auto) 0.0 K/mm3 (0.0-0.1) 03/28/21 09:37 Add Manual Diff Complete 04/03/21 04:30 Total Counted 100 04/03/21 04:30 Seg Neutrophils % 80.0 % (40.0-70.0) H 03/28/21 09:37 Seg Neuts % (Manual) 44.0 % (40.0-70.0) 04/03/21 04:30 Lymphocytes % (Manual) 27.0 % (13.4-35.0) 04/03/21 04:30 Eosinophils % (Manual) 27.0 % (0.0-4.3) H 04/03/21 04:30 Basophils % (Manual) 2.0 % (0.0-1.8) H 04/03/21 04:30 Nucleated RBC % Not Reportable 04/03/21 04:30 Seg Neutrophils # 13.0 K/mm3 (1.8-7.7) H 03/28/21 09:37 Seg Neutrophils # Man 13.7 K/mm3 (1.8-7.7) H 04/03/21 04:30 Band Neutrophils # 0.0 K/mm3 04/03/21 04:30 Lymphocytes # (Manual) 8.4 K/mm3 (1.2-5.4) H 04/03/21 04:30 Abs React Lymphs (Man) 0.0 K/mm3 04/03/21 04:30 Monocytes # (Manual) 0.0 K/mm3 (0.0-0.8) 04/03/21 04:30 Eosinophils # (Manual) 8.4 K/mm3 (0.0-0.4) H 04/03/21 04:30 Basophils # (Manual) 0.6 K/mm3 (0.0-0.1) H 04/03/21 04:30 Metamyelocytes # 0.0 K/mm3 04/03/21 04:30 Myelocytes # 0.0 K/mm3 04/03/21 04:30 Promyelocytes # 0.0 K/mm3 04/03/21 04:30 Blast Cells # 0.0 K/mm3 04/03/21 04:30 WBC Morphology Not Reportable 04/03/21 04:30 Hypersegmented Neuts Not Reportable 04/03/21 04:30 Hyposegmented Neuts Not Reportable 04/03/21 04:30 Hypogranular Neuts Not Reportable 04/03/21 04:30 Smudge Cells Not Reportable 04/03/21 04:30 Toxic Granulation Not Reportable 04/03/21 04:30 Toxic Vacuolation Not Reportable 04/03/21 04:30 Dohle Bodies Not Reportable 04/03/21 04:30 Pelger-Huet Anomaly Not Reportable 04/03/21 04:30 Bridgette Rods Not Reportable 04/03/21 04:30 Platelet Estimate Not Reportable 04/03/21 04:30 Clumped Platelets Not Reportable 04/03/21 04:30 Plt Clumps, EDTA Not Reportable 04/03/21 04:30 Large Platelets Not Reportable 04/03/21 04:30 Giant Platelets Not Reportable 04/03/21 04:30 Platelet Satelliting Not Reportable 04/03/21 04:30 Plt Morphology Comment Not Reportable 04/03/21 04:30 RBC Morphology Normal 04/03/21 04:30 Dimorphic RBCs Not Reportable 04/03/21 04:30 Polychromasia Not Reportable 04/03/21 04:30 Hypochromasia Not Reportable 04/03/21 04:30 Poikilocytosis Not Reportable 04/03/21 04:30 Anisocytosis Not Reportable 04/03/21 04:30 Microcytosis Not Reportable 04/03/21 04:30 Macrocytosis Not Reportable 04/03/21 04:30 Spherocytes Not Reportable 04/03/21 04:30 Pappenheimer Bodies Not Reportable 04/03/21 04:30 Sickle Cells Not Reportable 04/03/21 04:30 Target Cells Not Reportable 04/03/21 04:30 Tear Drop Cells Not Reportable 04/03/21 04:30 Ovalocytes Not Reportable 04/03/21 04:30 Helmet Cells Not Reportable 04/03/21 04:30 Kebede-Kahlotus Bodies Not Reportable 04/03/21 04:30 [place] Rings Not Reportable 04/03/21 04:30 Savage Cells Not Reportable 04/03/21 04:30 Bite Cells Not Reportable 04/03/21 04:30 Crenated Cell Not Reportable 04/03/21 04:30 Elliptocytes Not Reportable 04/03/21 04:30 Acanthocytes (Spur) Not Reportable 04/03/21 04:30 Rouleaux Not Reportable 04/03/21 04:30 Hemoglobin C Crystals Not Reportable 04/03/21 04:30 Schistocytes Not Reportable 04/03/21 04:30 Malaria parasites Not Reportable 04/03/21 04:30 Percent Retic 4.52 % (0.78-2.58) H 03/31/21 09:49 Vaibhav Bodies Not Reportable 04/03/21 04:30 Hem Pathologist Commnt No 04/03/21 04:30 PT 13.9 Sec. (12.2-14.9) 04/04/21 07:55 INR 0.96 (0.87-1.13) 04/04/21 07:55 APTT 28.9 Sec. (24.2-36.6) 04/04/21 07:55 Fibrinogen 248 mg/dl (211-480) 04/02/21 04:00 D-Dimer 2607.12 ng/mlDDU (0-234) H 03/30/21 04:00 Heparin Anti-Xa, Unfract TNR 03/22/21 08:20 ABG pH 7.257 pH Units (7.350-7.450) L 04/04/21 21:14 POC ABG pCO2 Cancelled 04/03/21 20:45 ABG pCO2 56.6 mm Hg 04/04/21 21:14 POC ABG pO2 Cancelled 04/03/21 20:45 ABG pO2 73.8 mm Hg (80.0-90.0) L 04/04/21 21:14 POC ABG HCO3 Cancelled 04/03/21 20:45 ABG HCO3 24.6 mmol/L (20.0-26.0) 04/04/21 21:14 ABG O2 Saturation 91.6 % (95.0-99.0) L 04/04/21 21:14 ABG O2 Content 10.9 (0.0-44) 04/04/21 21:14 POC ABG Base Excess Cancelled 04/03/21 20:45 ABG Base Excess -2.7 mmol/L (-2.0-3.0) L 04/04/21 21:14 ABG Hemoglobin 8.6 gm/dl (12.0-16.0) L 04/04/21 21:14 ABG Oxyhemoglobin Cancelled 04/03/21 20:45 ABG Carboxyhemoglobin 2.1 % (0.0-5.0) 04/04/21 21:14 ABG Methemoglobin 0.5 % (0.0-1.5) 04/04/21 21:14 ABG Sodium Cancelled 04/03/21 20:45 ABG Potassium Cancelled 04/03/21 20:45 ABG Chloride Cancelled 04/03/21 20:45 ABG Glucose Cancelled 04/03/21 20:45 ABG Lactate Cancelled 04/03/21 20:45 Oxyhemoglobin 89.1 % (95.0-99.0) L 04/04/21 21:14 Carboxyhemoglobin Cancelled 04/03/21 20:45 FiO2 50 % 04/04/21 21:14 FiO2 % Cancelled 04/03/21 20:45 Sodium 131 mmol/L (137-145) L 04/05/21 05:20 Potassium 4.9 mmol/L (3.6-5.0) D 04/05/21 05:20 Chloride 91.2 mmol/L (98-107) L 04/05/21 05:20 Carbon Dioxide 17 mmol/L (22-30) L 04/05/21 05:20 Anion Gap 28 mmol/L 04/05/21 05:20 BUN 85 mg/dL (7-17) H 04/05/21 05:20 Creatinine 5.1 mg/dL (0.6-1.2) H 04/05/21 05:20 Estimated GFR 12 ml/min 04/05/21 05:20 BUN/Creatinine Ratio 17 % 04/05/21 05:20 Glucose 183 mg/dL (65-100) H 04/05/21 05:20 POC Glucose 196 mg/dL (70-105) H 04/05/21 11:31 Hemoglobin A1c 6.3 % (4-6) H 03/15/21 05:09 Lactic Acid 2.00 mmol/L (0.7-2.0) 03/14/21 18:47 Calcium 7.4 mg/dL (8.4-10.2) L 04/05/21 05:20 Phosphorus 9.40 mg/dL (2.5-4.5) H 04/05/21 05:20 Magnesium 2.10 mg/dL (1.7-2.3) 04/05/21 05:20 Ferritin 151.6 ng/mL (10.0-200.0) 03/18/21 04:30 Total Bilirubin 1.00 mg/dL (0.1-1.2) 04/05/21 05:20 Bilirubin Cancelled 04/03/21 20:45 AST 23 units/L (5-40) 04/05/21 05:20 ALT 9 units/L (7-56) 04/05/21 05:20 Alkaline Phosphatase 190 units/L (35-129) H 04/05/21 05:20 Lactate Dehydrogenase 394 units/L (91-180) H 04/05/21 05:20 C-Reactive Protein 21.50 mg/dL (0.00-1.30) H 03/30/21 04:00 Total Protein 5.8 g/dL (6.3-8.2) L 04/05/21 05:20 Albumin 2.7 g/dL (3.9-5) L 04/05/21 05:20 Albumin/Globulin Ratio 0.9 % 04/05/21 05:20 Triglycerides 579 mg/dL (2-149) H 04/02/21 05:00 Procalcitonin < 0.05 ng/mL (<0.15) 03/13/21 15:40 HCG, Qual Negative (Negative) 03/13/21 13:26 Arterial Blood Glucose Cancelled 04/03/21 20:45 Arterial Blood Ionized Calcium Cancelled 04/03/21 20:45 Urine Creatinine 40.1 mg/dL (0.1-20.0) H 03/14/21 17:50 Urine Sodium 124 mmol/L 03/14/21 17:50 Random Vancomycin 11.2 ug/mL (0-40.0) 03/20/21 04:23 Heparin-induced Plt Ab Negative (Negative) 03/22/21 08:20 UF Heparin High Dose TNR 03/22/21 08:20 JUAN UFH Low Dose 0.1 TNR 03/22/21 08:20 JUAN UFH Low Dose 0.5 TNR 03/22/21 08:20 Coronavirus (PCR) Negative (Negative) 04/04/21 09:00 Hepatitis A IgM Ab Non-reactive (NonReactive) 03/15/21 05:09 Hep Bs Antigen Nonreactive (Negative) 03/15/21 05:09 Hep B Core IgM Ab Non-reactive (NonReactive) 03/15/21 05:09 Hepatitis C Antibody Non-reactive (NonReactive) 03/15/21 05:09 Schistocytes Smear None seen 03/31/21 12:11 Blood Type O POSITIVE 04/04/21 09:20 Antibody Screen Negative 04/04/21 09:20 Direct Antiglob Test Negative 03/31/21 23:18 NIKOLE, Poly Interpret Negative 03/31/21 23:18 Crossmatch See Detail 04/04/21 09:20 Bazan/IV: Voiding Method Toilet Active Medications - Current Medications Current Medications: Generic Name Dose Route Start Last Admin Trade Name Freq PRN Reason Stop Dose Admin Acetaminophen 650 mg 03/31/21 12:41 04/04/21 09:50 Acetaminophen 325 Mg/10.15 Ml Oral Liqd Unit Dose FEEDTUBE 650 mg Q6H PRN Administration TEMP >/=100.4 Albumin Human 25 gm 04/01/21 08:19 04/01/21 16:23 Albumin Human 25% (25 Gm/100 Ml) Inj IV 25 gm KARLOS PRN Administration Hypotension Albuterol 2.5 mg 03/19/21 00:53 Albuterol 2.5 Mg/3 Ml Nebu IH Q4HRT PRN Shortness Of Breath Albuterol/Ipratropium 1 ampul 03/19/21 08:00 04/05/21 08:42 Ipratropium/Albuterol Sulfate 3 Ml Ampul.Neb IH 1 ampul Q6HRT INESSA Administration Lipase/Protease/Amylase 1 each 03/15/21 11:42 Lipase 10,500/Protease 25,000/Amylase 43,750 (Units) Dr Cap FEEDTUBE PRN PRN For Clogged Feeding Tube Apixaban 2.5 mg 03/29/21 13:00 04/05/21 09:25 Apixaban 2.5 Mg Tab PO 2.5 mg Q12HR INESSA Administration Protocol Ascorbic Acid 500 mg 03/14/21 22:00 04/05/21 09:25 Ascorbic Acid 500 Mg Tab PO 500 mg BID INESSA Administration Calcium Acetate 1,334 mg 04/03/21 20:00 04/05/21 09:20 Calcium Acetate 667 Mg Cap FEEDTUBE 1,334 mg TID INESSA Administration Dextrose 50 ml 03/14/21 11:02 03/15/21 11:40 Dextrose 50% In Water (25gm) 50 Ml Syringe IV 50 ml Q30MIN PRN Administration Hypoglycemia Protocol Famotidine 10 mg 03/17/21 22:00 04/05/21 09:20 Famotidine 10 Mg Tab PO 10 mg BID INESSA Administration Fentanyl 50 mcg 03/15/21 10:43 03/28/21 09:25 Fentanyl 100 Mcg/2 Ml Inj IV 50 mcg Q10MIN PRN Administration ANALGESIA Hydrophilic Ointment 1 applic 03/14/21 17:50 Lip Therapy Vaseline TP Q2HR PRN Dry Lips Propofol 1,000 mg in 100 mls @ 4.123 mls/hr 03/15/21 11:00 04/05/21 10:09 Diprivan 10 Mg/Ml IV 50 mcg/kg/min TITR INESSA 41.231 mls/hr Administration Protocol 5 MCG/KG/MIN Fentanyl Citrate 2,000 mcg in 100 mls @ 6.872 mls/hr 03/15/21 11:00 04/05/21 06:21 Fentanyl Drip Premix IV 4 mcg/kg/hr TITR INESSA 27.488 mls/hr Administration Protocol 1 MCG/KG/HR Sodium Chloride 500 mls @ 1 mls/hr 03/16/21 17:19 Nacl 0.9% 500 Ml IV DIRECT PRN ARTERIAL LINE FLUSH NORepinephrine/NS 8 MG-250 ML 8 mg in 250 mls @ 3.75 mls/hr 03/23/21 11:00 04/05/21 09:28 Norepinephrine/Ns 8 Mg-250 Ml (Double Conc) IV 8 mcg/min TITRATE INESSA 15 mls/hr Titration Protocol 2 MCG/MIN Midazolam HCl 100 mg/ Sodium 100 mls @ 1 mls/hr 03/30/21 15:00 04/04/21 22:45 Chloride IV 7 mg/hr TITR INESSA 7 mls/hr Administration Protocol 1 MG/HR Vasopressin 20 unit/ Sodium 101 mls @ 9.09 mls/hr 03/30/21 20:00 04/05/21 07:44 Chloride IV 0.03 units/min TITR INESSA 9.09 mls/hr Administration 0.03 UNITS/MIN Phenylephrine HCl 100 mg/ 100 mls @ 3 mls/hr 03/31/21 04:00 04/05/21 09:26 Sodium Chloride IV 20 mcg/min TITR INESSA 1.2 mls/hr Titration Protocol 50 MCG/MIN Sodium Chloride 100 mls @ 999 mls/hr 04/01/21 08:19 Nacl 0.9% IV KARLOS PRN Hypotension Sodium Bicarbonate 150 meq/ 1,150 mls @ 75 mls/hr 04/02/21 22:00 04/03/21 13:42 Dextrose IV 75 mls/hr DIRECT INESSA Administration Insulin Human Lispro 0 unit 03/14/21 12:00 04/05/21 05:29 Insulin Lispro 100 Unit/Ml SUB-Q 2 unit Q6HR INESSA Administration Protocol Lorazepam 1 mg 03/13/21 19:40 03/30/21 19:58 Lorazepam 2 Mg/Ml Vial IV 1 mg Q4H PRN Administration Anxiety Methylprednisolone Sodium Succinate 40 mg 04/05/21 14:00 Methylprednisolone Sod Succinate 125 Mg/2 Ml Inj IV Q8HR INESSA Midazolam HCl 2 mg 03/30/21 14:19 03/30/21 14:30 Midazolam 2 Mg/2 Ml Inj IV 2 mg Q10MIN PRN Administration Sedation Multi-Ingred Cream/Lotion/Oil/Oint 1 applic 03/14/21 17:50 04/02/21 14:31 Mineral Oil/Petrolatum, White Ophth Oint 3.5 Gm OU 1 applic Q4HR PRN Administration Dry Eye(s) Ondansetron HCl 4 mg 03/13/21 19:30 03/21/21 12:05 Ondansetron 4 Mg/2 Ml Inj IV 4 mg Q8H PRN Administration Nausea And Vomiting Quetiapine Fumarate 100 mg 04/04/21 14:00 04/05/21 09:21 Quetiapine 100 Mg Tab PO 100 mg BID INSESA Administration Quetiapine Fumarate 50 mg 04/04/21 14:00 04/05/21 09:21 Quetiapine 25 Mg Tab PO 50 mg BID INESSA Administration Senna/Docusate Sodium 1 tab 03/14/21 22:00 04/05/21 09:23 Sennosides/Docusate Sodium 8.6/50 Mg Tab FEEDTUBE Not Given BID INESSA Simple Syrup 15 ml 03/15/21 11:42 Simple Syrup 15 Ml FEEDTUBE PRN PRN Hypoglycemia Simple Syrup 30 ml 03/15/21 11:42 Simple Syrup 15 Ml FEEDTUBE PRN PRN Hypoglycemia Sodium Bicarbonate 325 mg 03/15/21 11:42 03/21/21 17:21 Sodium Bicarbonate 325 Mg Tab FEEDTUBE 325 mg PRN PRN Administration For Clogged Feeding Tube Sodium Chloride 10 ml 03/13/21 22:00 04/05/21 09:26 Sodium Chloride 0.9% 10 Ml Flush Syringe IV 10 ml BID INESSA Administration Sodium Chloride 10 ml 03/13/21 19:30 Sodium Chloride 0.9% 10 Ml Flush Syringe IV PRN PRN LINE FLUSH Zinc Sulfate 220 mg 03/14/21 22:00 04/05/21 09:22 Zinc Sulfate 220 Mg Cap PO 220 mg BID INESSA Administration Nutrition/Malnutrition Assess - Dietary Evaluation Nutrition/Malnutrition Findings: Nutrition Notes Start: 03/15/21 11:06 Freq: Status: Active Protocol: Document 04/02/21 15:08 REJI (Rec: 04/02/21 15:19 [facility] [id number]) Nutrition Notes Initial or Follow up Reassessment Current Diagnosis Acute Kidney Injury, Hypertension,Respiratory Failure Other Pertinent Diagnosis COVID-19 pneu, periorbital edema Current Diet TF - Nepro at 44ml/hr Labs/Tests Na 132 K 5.3 BUN 80 Cr 6.8 BG 174 Triglycerides 579 Pertinent Medications Propofol at 32.985ml/hr ( provides 871 kcal), Human Albumin, Solumedrol, Levophed gtt, Phenylephrine gtt, Vasopressin gtt, Kionex Height 5 ft 5 in Weight 137.438 kg [place] Body Weight (kg) 56.81 BMI 50.4 Weight Status Morbidly Obese Subjective/Other Information Spoke with pt's RN via phone at 15:06. Pt tolerating TF at goal rate, despite being on three pressors. Per RN, been able to decrease pressor concentration. Pt been spiking a fever for past few days; Artic sun blanket in place to lower body temperature. Pt remains on vent support. Percent of energy/protein needs met: 99% energy 73% pro Burn Absent Trauma Absent Minimum of two criteria No #1 Nutrition Diagnosis Swallowing difficulty Diagnosis Progress(for reassessment Continues documentation) Is patient on ventilator? Yes Is Patient Ambulatory and/or Out of Bed No REE-([facility]-confined to bed) 2515.536 Kcal/Kg value to use for calculation 14 Approximate Energy Requirements Using 1924 kcal/Kg Calculation Used for Recommendations Kcal/kg Additional Notes Pro needs >1.2g/kg adjBW: > 117g/day Fluid needs 1-1.5L/day Nutrition Intervention Nutrition Support: Continue Nepro at 44ml/hr. Provide 120ml water flush q4h Kcal 1,901 Protein (gm) 86 Carbohydrates (gm) 170 Fat (gm) 101 Fluid (mL) 768 Fiber (gm) 13 Goal #1 TF tolerance Goal #2 TF to meet at least 75% energy and pro needs Follow-Up By: 04/09/21 Additional Comments F/U: stable TF, vent status, wt, propofol, pressor support, rectal tube <SAURABH ALBRECHT - Last Filed: 04/15/21 07:30> Assessment and Plan Assessment and plan: I saw and evaluated the patient. Discussed with the nurse practitioner and agree with their findings and plan as documented in this note. Hospitalist Physical - Constitutional Vitals: Temp Pulse Resp BP Pulse Ox 102.0 F H 137 H 20 140/76 100 04/15/21 04:00 04/15/21 06:00 04/15/21 06:00 04/15/21 06:00 04/15/21 06:00 Results - Labs CBC & Chem 7: 04/15/21 Unknown 04/15/21 Unknown Labs: Laboratory Last Values WBC 11.8 K/mm3 (4.5-11.0) H 04/15/21 Unknown RBC 2.41 M/mm3 (3.65-5.03) L 04/15/21 Unknown Hgb 7.1 gm/dl (10.1-14.3) L 04/15/21 Unknown Hct 22.4 % (30.3-42.9) L 04/15/21 Unknown MCV 93 fl (79-97) 04/15/21 Unknown MCH 29 pg (28-32) 04/15/21 Unknown MCHC 32 % (30-34) 04/15/21 Unknown RDW 17.0 % (13.2-15.2) H 04/15/21 Unknown Plt Count 38 K/mm3 (140-440) L 04/15/21 Unknown Lymph % (Auto) 10.7 % (13.4-35.0) L 03/28/21 09:37 [place] % (Auto) 5.2 % (0.0-7.3) 03/28/21 09:37 Eos % (Auto) [employer]st 04/07/21 03:50 Baso % (Auto) 0.2 % (0.0-1.8) 03/28/21 09:37 Lymph # (Auto) 1.7 K/mm3 (1.2-5.4) 03/28/21 09:37 [place] # (Auto) 0.9 K/mm3 (0.0-0.8) H 03/28/21 09:37 Eos # (Auto) 0.6 K/mm3 (0.0-0.4) H 03/28/21 09:37 Baso # (Auto) 0.0 K/mm3 (0.0-0.1) 03/28/21 09:37 Add Manual Diff Complete 04/07/21 03:50 Total Counted 100 04/07/21 03:50 Seg Neutrophils % 80.0 % (40.0-70.0) H 03/28/21 09:37 Seg Neuts % (Manual) 67.0 % (40.0-70.0) 04/07/21 03:50 Lymphocytes % (Manual) 10.0 % (13.4-35.0) L 04/07/21 03:50 Monocytes % (Manual) 4.0 % (0.0-7.3) 04/07/21 03:50 Eosinophils % (Manual) 19.0 % (0.0-4.3) H 04/07/21 03:50 Basophils % (Manual) 2.0 % (0.0-1.8) H 04/03/21 04:30 Nucleated RBC % 2.0 % (0.0-0.9) H 04/07/21 03:50 Seg Neutrophils # 13.0 K/mm3 (1.8-7.7) H 03/28/21 09:37 Seg Neutrophils # Man 17.9 K/mm3 (1.8-7.7) H 04/07/21 03:50 Band Neutrophils # 0.0 K/mm3 04/07/21 03:50 Lymphocytes # (Manual) 2.7 K/mm3 (1.2-5.4) 04/07/21 03:50 Abs React Lymphs (Man) 0.0 K/mm3 04/07/21 03:50 Monocytes # (Manual) 1.1 K/mm3 (0.0-0.8) H 04/07/21 03:50 Eosinophils # (Manual) 5.1 K/mm3 (0.0-0.4) H 04/07/21 03:50 Basophils # (Manual) 0.0 K/mm3 (0.0-0.1) 04/07/21 03:50 Metamyelocytes # 0.0 K/mm3 04/07/21 03:50 Myelocytes # 0.0 K/mm3 04/07/21 03:50 Promyelocytes # 0.0 K/mm3 04/07/21 03:50 Blast Cells # 0.0 K/mm3 04/07/21 03:50 WBC Morphology Not Reportable 04/07/21 03:50 Hypersegmented Neuts Not Reportable 04/07/21 03:50 Hyposegmented Neuts Not Reportable 04/07/21 03:50 Hypogranular Neuts Not Reportable 04/07/21 03:50 Smudge Cells Not Reportable 04/07/21 03:50 Toxic Granulation Not Reportable 04/07/21 03:50 Toxic Vacuolation Not Reportable 04/07/21 03:50 Dohle Bodies Not Reportable 04/07/21 03:50 Pelger-Huet Anomaly Not Reportable 04/07/21 03:50 Bridgette Rods Not Reportable 04/07/21 03:50 Platelet Estimate Consistent w auto 04/07/21 03:50 Clumped Platelets Not Reportable 04/07/21 03:50 Plt Clumps, EDTA Not Reportable 04/07/21 03:50 Large Platelets Not Reportable 04/07/21 03:50 Giant Platelets Not Reportable 04/07/21 03:50 Platelet Satelliting Not Reportable 04/07/21 03:50 Plt Morphology Comment Not Reportable 04/07/21 03:50 RBC Morphology Not Reportable 04/07/21 03:50 Dimorphic RBCs Not Reportable 04/07/21 03:50 Polychromasia Not Reportable 04/07/21 03:50 Hypochromasia Not Reportable 04/07/21 03:50 Poikilocytosis Not Reportable 04/07/21 03:50 Anisocytosis 1+ 04/07/21 03:50 Microcytosis Not Reportable 04/07/21 03:50 Macrocytosis Not Reportable 04/07/21 03:50 Spherocytes Not Reportable 04/07/21 03:50 Pappenheimer Bodies Not Reportable 04/07/21 03:50 Sickle Cells Not Reportable 04/07/21 03:50 Target Cells 1+ 04/07/21 03:50 Tear Drop Cells Not Reportable 04/07/21 03:50 Ovalocytes Not Reportable 04/07/21 03:50 Helmet Cells Not Reportable 04/07/21 03:50 Kebede-Kahlotus Bodies Not Reportable 04/07/21 03:50 [place] Rings Not Reportable 04/07/21 03:50 Balaji Cells Not Reportable 04/07/21 03:50 Bite Cells Not Reportable 04/07/21 03:50 Crenated Cell Not Reportable 04/07/21 03:50 Elliptocytes Not Reportable 04/07/21 03:50 Acanthocytes (Spur) Not Reportable 04/07/21 03:50 Rouleaux Not Reportable 04/07/21 03:50 Hemoglobin C Crystals Not Reportable 04/07/21 03:50 Schistocytes Not Reportable 04/07/21 03:50 Malaria parasites Not Reportable 04/07/21 03:50 Percent Retic 4.52 % (0.78-2.58) H 03/31/21 09:49 Vaibhav Bodies Not Reportable 04/07/21 03:50 Hem Pathologist Commnt No 04/07/21 03:50 PT 16.3 Sec. (12.2-14.9) H 04/15/21 Unknown INR 1.18 (0.87-1.13) H 04/15/21 Unknown APTT 28.9 Sec. (24.2-36.6) 04/04/21 07:55 Fibrinogen 400 mg/dl (211-480) 04/14/21 09:45 D-Dimer 2696.79 ng/mlDDU (0-234) H 04/08/21 04:40 Heparin Anti-Xa, Unfract TNR 03/22/21 08:20 ABG pH 7.207 (7.320-7.450) L 04/14/21 21:00 POC ABG pCO2 67.6 mmHg (32.0-48.0) H 04/14/21 21:00 ABG pCO2 68.6 mm Hg 04/13/21 03:52 POC ABG pO2 143.7 mmHg (83-108) H 04/14/21 21:00 ABG pO2 98.9 mm Hg (80.0-90.0) H 04/13/21 03:52 POC ABG HCO3 26.2 04/14/21 21:00 ABG HCO3 25.5 mmol/L (20.0-26.0) 04/13/21 03:52 ABG O2 Saturation 98.8 (0-100) 04/14/21 21:00 ABG O2 Content 10.0 (0.0-44) 04/13/21 03:52 POC ABG Base Excess -1.9 04/14/21 21:00 ABG Base Excess -2.9 mmol/L (-2.0-3.0) L 04/13/21 03:52 ABG Hemoglobin 7.6 (12.0-17.5) L 04/14/21 21:00 ABG Oxyhemoglobin 97.6 (94-98) 04/14/21 21:00 ABG Carboxyhemoglobin 1.9 % (0.0-5.0) 04/13/21 03:52 ABG Methemoglobin 0.1 (0.0-1.5) 04/14/21 21:00 ABG Sodium 133.8 mmol/L (136.0-145.0) L 04/14/21 21:00 ABG Potassium 4.0 mmol/L (3.40-4.50) 04/14/21 21:00 ABG Chloride 101.0 mmol/L (98-107) 04/14/21 21:00 ABG Glucose 158 mg/dL (65-95) H 04/14/21 21:00 ABG Lactate Cancelled 04/03/21 20:45 Oxyhemoglobin 94.3 % (95.0-99.0) L 04/13/21 03:52 Carboxyhemoglobin 1.1 (0.5-1.5) 04/14/21 21:00 FiO2 65 % 04/13/21 03:52 FiO2 % 80.0 04/14/21 21:00 Sodium 137 mmol/L (137-145) 04/15/21 Unknown Potassium 4.3 mmol/L (3.6-5.0) 04/15/21 Unknown Chloride 98.5 mmol/L (98-107) 04/15/21 Unknown Carbon Dioxide 24 mmol/L (22-30) 04/15/21 Unknown Anion Gap 19 mmol/L 04/15/21 Unknown BUN 67 mg/dL (7-17) H 04/15/21 Unknown Creatinine 3.3 mg/dL (0.6-1.2) H 04/15/21 Unknown Estimated GFR 20 ml/min 04/15/21 Unknown BUN/Creatinine Ratio 20 % 04/15/21 Unknown Glucose 155 mg/dL (65-100) H 04/15/21 Unknown POC Glucose 147 mg/dL (70-105) H 04/14/21 23:53 Hemoglobin A1c 6.3 % (4-6) H 03/15/21 05:09 Lactic Acid 0.80 mmol/L (0.7-2.0) 04/07/21 03:50 Calcium 8.3 mg/dL (8.4-10.2) L 04/15/21 Unknown Phosphorus 5.70 mg/dL (2.5-4.5) H 04/15/21 Unknown Magnesium 1.90 mg/dL (1.7-2.3) 04/15/21 Unknown Ferritin 151.6 ng/mL (10.0-200.0) 03/18/21 04:30 Total Bilirubin 0.40 mg/dL (0.1-1.2) 04/15/21 Unknown Bilirubin Cancelled 04/03/21 20:45 AST 85 units/L (5-40) H 04/15/21 Unknown ALT 63 units/L (7-56) H 04/15/21 Unknown Alkaline Phosphatase 94 units/L (35-129) 04/15/21 Unknown Lactate Dehydrogenase 394 units/L (91-180) H 04/05/21 05:20 C-Reactive Protein 26.10 mg/dL (0.00-1.30) H 04/08/21 04:00 Total Protein 6.3 g/dL (6.3-8.2) 04/15/21 Unknown Albumin 2.4 g/dL (3.9-5) L 04/15/21 Unknown Albumin/Globulin Ratio 0.6 % 04/15/21 Unknown Triglycerides 406 mg/dL (2-149) H 04/11/21 04:15 Serotonin Release Assay TNR 03/22/21 08:20 Procalcitonin < 0.05 ng/mL (<0.15) 03/13/21 15:40 HCG, Qual Negative (Negative) 03/13/21 13:26 Arterial Blood Glucose 158 mg/dL (65-95) H 04/14/21 21:00 Arterial Blood Ionized Calcium 4.7 mg/dL (4.6-5.3) 04/14/21 21:00 Urine Color Sweta (Yellow) 04/06/21 Unknown Urine Turbidity Cloudy (Clear) 04/06/21 Unknown Urine pH 5.0 (5.0-7.0) 04/06/21 Unknown Ur Specific [place] 1.020 (1.003-1.030) 04/06/21 Unknown Urine Protein 100 mg/dl mg/dL (Negative) 04/06/21 Unknown Urine Glucose (UA) Neg mg/dL (Negative) 04/06/21 Unknown Urine Ketones Neg mg/dL (Negative) 04/06/21 Unknown Urine Blood Mod (Negative) 04/06/21 Unknown Urine Nitrite Neg (Negative) 04/06/21 Unknown Urine Bilirubin Neg (Negative) 04/06/21 Unknown Urine Urobilinogen < 2.0 mg/dL (<2.0) 04/06/21 Unknown Ur Leukocyte Esterase Neg (Negative) 04/06/21 Unknown Urine WBC (Auto) 148.0 /HPF (0.0-6.0) H 04/06/21 Unknown Urine RBC (Auto) > 182.0 /HPF (0.0-6.0) 04/06/21 Unknown U Epithel Cells (Auto) 102.0 /HPF (0-13.0) H 04/06/21 Unknown Urine Bacteria (Auto) 1+ /HPF (Negative) 04/06/21 Unknown Ur Renal Epithelial Cell 151 /LPF 04/06/21 Unknown Urine Mucus Few /HPF 04/06/21 Unknown Urine Yeast (Budding) 3+ /HPF 04/06/21 Unknown Urine Creatinine 40.1 mg/dL (0.1-20.0) H 03/14/21 17:50 Urine Sodium 124 mmol/L 03/14/21 17:50 Random Vancomycin 13.6 ug/mL (0-40.0) 04/12/21 04:30 KIMBERLEY Screen Negative (Negative) 04/07/21 08:27 Heparin-induced Plt Ab Negative (Negative) 03/22/21 08:20 UF Heparin High Dose TNR 03/22/21 08:20 JUAN UFH Low Dose 0.1 TNR 03/22/21 08:20 JUAN UFH Low Dose 0.5 TNR 03/22/21 08:20 Coronavirus (PCR) Negative (Negative) 04/04/21 09:00 Hepatitis A IgM Ab Non-reactive (NonReactive) 03/15/21 05:09 Hep Bs Antigen Nonreactive (Negative) 03/15/21 05:09 Hep B Core IgM Ab Non-reactive (NonReactive) 03/15/21 05:09 Hepatitis C Antibody Non-reactive (NonReactive) 03/15/21 05:09 Schistocytes Smear None seen 03/31/21 12:11 Blood Type O POSITIVE 04/11/21 13:39 Antibody Screen Negative 04/11/21 13:39 Direct Antiglob Test Negative 03/31/21 23:18 NIKOLE, Poly Interpret Negative 03/31/21 23:18 Crossmatch See Detail 04/11/21 13:39 Microbiology: Microbiology 04/11/21 15:05 Bronchial Washings - Left Upper Lobe Respiratory Culture - Preliminary Enterococcus Species Bazan/IV: Voiding Method Incontinent Active Medications - Current Medications Current Medications: Generic Name Dose Route Start Last Admin Trade Name Freq PRN Reason Stop Dose Admin Acetaminophen 650 mg 03/31/21 12:41 04/15/21 05:55 Acetaminophen 325 Mg/10.15 Ml Oral Liqd Unit Dose FEEDTUBE 650 mg Q6H PRN Administration TEMP >/=100.4 Albumin Human 25 gm 04/01/21 08:19 04/01/21 16:23 Albumin Human 25% (25 Gm/100 Ml) Inj IV 25 gm KARLOS PRN Administration Hypotension Albuterol 2.5 mg 03/19/21 00:53 Albuterol 2.5 Mg/3 Ml Nebu IH Q4HRT PRN Shortness Of Breath Albuterol/Ipratropium 1 ampul 03/19/21 08:00 04/15/21 02:11 Ipratropium/Albuterol Sulfate 3 Ml Ampul.Neb IH Not Given Q6HRT INESSA Lipase/Protease/Amylase 1 each 04/09/21 17:17 Lipase 10,500/Protease 25,000/Amylase 43,750 (Units) Dr Cap FEEDTUBE PRN PRN For Clogged Feeding Tube Calcium Acetate 1,334 mg 04/03/21 20:00 04/14/21 22:05 Calcium Acetate 667 Mg Cap FEEDTUBE 1,334 mg TID INESSA Administration Dextrose 50 ml 03/14/21 11:02 03/15/21 11:40 Dextrose 50% In Water (25gm) 50 Ml Syringe IV 50 ml Q30MIN PRN Administration Hypoglycemia Protocol Famotidine 10 mg 03/17/21 22:00 04/14/21 22:04 Famotidine 10 Mg Tab PO 10 mg BID INESSA Administration Fentanyl 50 mcg 03/15/21 10:43 04/05/21 21:32 Fentanyl 100 Mcg/2 Ml Inj IV 50 mcg Q10MIN PRN Administration ANALGESIA Hydrocortisone Sodium Succinate 100 mg 04/10/21 00:00 04/15/21 00:19 Hydrocortisone Sod Succ 100 Mg/2 Ml Vial IV 100 mg Q8H INESSA Administration Hydrophilic Ointment 1 applic 03/14/21 17:50 Lip Therapy Vaseline TP Q2HR PRN Dry Lips Fentanyl Citrate 2,000 mcg in 100 mls @ 6.872 mls/hr 03/15/21 11:00 04/15/21 07:09 Fentanyl Drip Premix IV 4 mcg/kg/hr TITR INESSA 27.488 mls/hr Administration Protocol 1 MCG/KG/HR Sodium Chloride 500 mls @ 1 mls/hr 03/16/21 17:19 Nacl 0.9% 500 Ml IV DIRECT PRN ARTERIAL LINE FLUSH Midazolam HCl 100 mg/ Sodium 100 mls @ 1 mls/hr 03/30/21 15:00 04/14/21 15:45 Chloride IV 4 mg/hr TITR INESSA 4 mls/hr Titration Protocol 1 MG/HR Vasopressin 20 unit/ Sodium 101 mls @ 9.09 mls/hr 03/30/21 20:00 04/15/21 07:13 Chloride IV 0.03 units/min TITR INESSA 9.09 mls/hr Infusion 0.03 UNITS/MIN Phenylephrine HCl 100 mg/ 100 mls @ 3 mls/hr 03/31/21 04:00 04/06/21 07:58 Sodium Chloride IV 0 mcg/min TITR INESSA 0 mls/hr Titration Protocol 50 MCG/MIN Sodium Chloride 100 mls @ 999 mls/hr 04/01/21 08:19 Nacl 0.9% IV KARLOS PRN Hypotension Propofol 1,000 mg in 100 mls @ 4.26 mls/hr 04/07/21 13:00 04/12/21 12:52 Diprivan 10 Mg/Ml IV 0 mcg/kg/min TITR INESSA 0 mls/hr Titration Protocol 5 MCG/KG/MIN Micafungin Sodium 100 mg/ 100 mls @ 100 mls/hr 04/09/21 17:00 04/14/21 17:40 Sodium Chloride IV 100 mls/hr Q24H INESSA Administration Protocol Norepinephrine 8 mg/ Sodium 8 mg in 258 mls @ 3.87 mls/hr 04/12/21 04:00 04/14/21 17:39 Chloride IV 0 mcg/min TITRATE INESSA 0 mls/hr Titration Protocol 2 MCG/MIN MEROPENEM/NS 1 GRAM/100 ML 1 gram in 100 mls @ 100 mls/hr 04/12/21 22:00 04/14/21 22:05 Merrem/Ns 1 Gram/100 Ml IV 100 mls/hr Q24H INESSA Administration Protocol Sodium Chloride 1,000 mls @ 1 mls/hr 04/14/21 16:45 04/14/21 16:57 Nacl 0.9% 1000 Ml IV 1 mls/hr DIRECT INESSA Administration Insulin Human Lispro 0 unit 03/14/21 12:00 04/15/21 06:07 Insulin Lispro 100 Unit/Ml SUB-Q Not Given Q6HR [facility] Protocol Lorazepam 1 mg 03/13/21 19:40 03/30/21 19:58 Lorazepam 2 Mg/Ml Vial IV 1 mg Q4H PRN Administration Anxiety Multi-Ingred Cream/Lotion/Oil/Oint 1 applic 03/14/21 17:50 04/10/21 22:03 Mineral Oil/Petrolatum, White Ophth Oint 3.5 Gm OU 1 applic Q4HR PRN Administration Dry Eye(s) Ondansetron HCl 4 mg 03/13/21 19:30 03/21/21 12:05 Ondansetron 4 Mg/2 Ml Inj IV 4 mg Q8H PRN Administration Nausea And Vomiting Quetiapine Fumarate 300 mg 04/06/21 22:00 04/14/21 22:05 Quetiapine 100 Mg Tab PO 300 mg BID INESSA Administration Senna/Docusate Sodium 1 tab 03/14/21 22:00 04/14/21 22:06 Sennosides/Docusate Sodium 8.6/50 Mg Tab FEEDTUBE Not Given BID INESSA Simple Syrup 15 ml 04/09/21 17:17 Simple Syrup 15 Ml FEEDTUBE PRN PRN Hypoglycemia Simple Syrup 30 ml 04/09/21 17:17 Simple Syrup 15 Ml FEEDTUBE PRN PRN Hypoglycemia Sodium Bicarbonate 325 mg 04/09/21 17:17 Sodium Bicarbonate 325 Mg Tab FEEDTUBE PRN PRN For Clogged Feeding Tube Sodium Chloride 10 ml 03/13/21 22:00 04/14/21 22:17 Sodium Chloride 0.9% 10 Ml Flush Syringe IV 10 ml BID INESSA Administration Sodium Chloride 10 ml 03/13/21 19:30 Sodium Chloride 0.9% 10 Ml Flush Syringe IV PRN PRN LINE FLUSH Nutrition/Malnutrition Assess - Dietary Evaluation Nutrition/Malnutrition Findings: Nutrition Notes Start: 03/15/21 11:06 Freq: Status: Active Protocol: Document 04/14/21 11:13 CANDACE (Rec: 04/14/21 11:52 CANDACE [id number]) Nutrition Notes Initial or Follow up Reassessment Other Pertinent Diagnosis [id number], Transaminitis, Hyperglycemia. Current Diet TF -Glucerna 1.2 Abdullahi (since L 04/14). Labs/Tests 04/14: BUN 74, Crea 3.1, Glu 220. Pertinent Medications 04/14 Vit C, D50w (25 g) mEq, Insulin, Zn, Propofol 1,000 mg /100 ml @ 4.26 ml/hr, others nutritionally unremarkable. Height 5 ft 5 in Weight 142 kg [place] Body Weight (kg) 56.81 BMI 52.0 Weight change and time frame No new reports on body weight changes, Weight Status Morbidly Obese Subjective/Other Information RD consult on change TF from Nepro w/CARBSTEADY to Glucerna 1,2 Abdullahi, due to lack of stock Nepro. Percent of energy/protein needs met: 100% Kcal; 85% AA. Burn Absent Trauma Absent GI Symptoms None Food Allergy No Skin Integrity/Comment Clear, warm, dry. Current % PO Other Minimum of two criteria No Is patient on ventilator? Yes Is Patient Ambulatory and/or Out of Bed No REE-([facility]-confined to bed) 2570.232 Kcal/Kg value to use for calculation 14 Approximate Energy Requirements Using 1988 kcal/Kg Calculation Used for Recommendations Kcal/kg Additional Notes Pro needs >1.2g/kg adjBW: > 117g/day Fluid needs 1-1.5L/day Nutrition Intervention Nutrition Support: Change to Glucerna 1.2 Abdullahi @ 69 ml/hr. Flush: 109 ml water Q 4 hr. Kcal 1,988 Protein (gm) 99 Carbohydrates (gm) 190 Fat (gm) 99 Fluid (mL) 1,334 Fiber (gm) 27 % RDI: 100% Kcal; 85% AA. Goal #1 Maintain body weight within +/ -3% of admission BWt during LOS. Goal #2 Reach and maintain acceptable chemistry lab values during LOS. Follow-Up By: 04/16/21 Additional Comments Continue monitoring TF tolerance, Hydration, and BM.
[2021-04-05] MEDS: ACETAMINOPHEN 325 MG/10.15 ML ORAL LIQD UNIT DOSE FEEDTUBE PRN ×2 (12:52→23:00)
--- NOTE | 2021-04-05 13:28 | Progress Note ---
Assessment and Plan Acute hypoxemic respiratory failure Acute asthma exacerbation Morbid obesity Crohn's disease Metabolic acidosis Acute kidney injury Coronavirus infection Pneumonia (CAP) Oropharyngeal dysphagia Obesity, if not mentioned above (Taheerah will need a tracheostomy once more stable) - s/p plasma exchange and high dose / pulse steroid therapy - increased Seroquel to 200 mg p.o. bid - wean off Propofol as tolerated - QTc 438 and will follow prn - repeat ABG at 9 pm tonight and address - continue to wean vasopressors for target MAP > 65 mmHg (weaning down) - nephrology input appreciated; HD/UF for toxin and volume clearance - continue care as below otherwise; - prn cooling blanket (fevers better) - continue to wean vasopressors for target MAP > 65 mmHg - nephrology input appreciated; HD/UF for toxin and volume clearance - continue Daily SAT and SBT assessment as tolerated - continue to wean supplemental oxygen for target O2 sat's > 90% acutely - VAP bundle addressed - continue lung protective strategies - continue bronchodilators with pulmonary hygiene per RT - wean per pulmonary driven protocols otherwise - continue accuchecks with glycemic control per SSI (While critically ill target blood glucose of 140-180 mg/dL; avoid hypoglycemia) - sedation prn for target RASS 0 to -1 - avoid nephrotoxins, renally dose all medications - continue to avoid benzodiazepine's, reduce the possibility of delirium - AB's per ID rec's (s/p Cefepime) - prn analgesia per CPOT score - Maintenance of sleep-wake cycle, avoid delirium - continue enteral nutritional support at goal rate as tolerated - G.I. & VTE prophylaxis - PT/OT/ROM exercises - continue mobility protocols for pressure ulcer prophylaxis - Monitor hemodynamics closely - continue other care per attending / other consultants - discharge planning ongoing concurrently COVID SPECIFIC INTERVENTIONS - Isolation discontinued - s/p Actemra - Remdesivir as per ID/Pulmonary developed protocols (not a candidate) - continue systemic steroids for severe COVID-19 infection empirically - repeat COVID tests result negative - zinc and vitamin C supplementation - Monitor inflammatory markers per facility protocol - ferritin, Ddimer, CRP - therapeutic anticoagulation per system Protocol based on d-dimer and clinical considerations (VTE prophylaxis) - Continue contact and airborne isolation .... Re-evaluate in am & prn CONDITION: CRITICAL PROGNOSIS: GUARDED CODE STATUS: FULL CODE The high probability of a clinically significant, sudden or life-threatening deterioration of the [respiratory, cardiovascular, renal & neurologic] system(s) required my full and direct attention, intervention and personal management. The aggregate critical care time was [33] minutes without overlap. Time includes spent on; [x] Data Review and interpretation [x] Patient assessment and monitoring of vital signs [x] Documentation [x] Medication orders and management Subjective Date of service: 04/05/21 Principal diagnosis: Ac hypoxemic resp failure; AE-Asthma; SAI; Crohn's; COVID- 19; Pneumonia Interval history: Patient is seen today for: Acute hypoxemic respiratory failure; AE-Asthma; SAI; Crohn's disease; COVID-19 infection; Pneumonia (CAP) Seen and examined at bedside; 24hour events reviewed; nursing and respiratory care staff consulted; no adverse overnight events reported to me; resting in bed; remains on MVS; less agitated / reduced work of breathing today; no emesis or overt aspiration; remains on Propofol but room to wean; oxygenation overall improved with FiO2 at 50%; HD/UF ongoing and plan is to pull 1 liter in UF; remains on vasopressors but some room to wean Objective Vital Signs - 12hr 04/05/21 04/05/21 04/05/21 01:31 02:00 02:30 Temperature Pulse Rate 109 H 109 H 109 H Pulse Rate [ From Monitor] Respiratory 34 H 35 H 34 H Rate Blood Pressure 124/55 119/75 124/55 O2 Sat by Pulse 96 98 Oximetry O2 Sat by Pulse Oximetry [ Anterior Bilateral Throughout] O2 Sat by Pulse Oximetry [ Throughout] 04/05/21 04/05/21 04/05/21 03:00 03:31 03:59 Temperature Pulse Rate 106 H 108 H 108 H Pulse Rate [ From Monitor] Respiratory 33 H 34 H Rate Blood Pressure 109/53 119/75 106/54 O2 Sat by Pulse 96 98 96 Oximetry O2 Sat by Pulse Oximetry [ Anterior Bilateral Throughout] O2 Sat by Pulse Oximetry [ Throughout] 04/05/21 04/05/21 04/05/21 04:00 04:31 05:00 Temperature 98.2 F Pulse Rate 108 H 110 H 113 H Pulse Rate [ 108 H From Monitor] Respiratory 34 H 35 H 37 H Rate Blood Pressure 112/53 120/63 O2 Sat by Pulse 95 100 97 Oximetry O2 Sat by Pulse Oximetry [ Anterior Bilateral Throughout] O2 Sat by Pulse Oximetry [ Throughout] 04/05/21 04/05/21 04/05/21 05:31 06:00 06:31 Temperature Pulse Rate 106 H 104 H 104 H Pulse Rate [ From Monitor] Respiratory 32 H 32 H 33 H Rate Blood Pressure 120/63 105/45 120/63 O2 Sat by Pulse 99 95 98 Oximetry O2 Sat by Pulse Oximetry [ Anterior Bilateral Throughout] O2 Sat by Pulse Oximetry [ Throughout] 04/05/21 04/05/21 04/05/21 07:00 07:31 08:00 Temperature 97.7 F Pulse Rate 102 H 101 H 102 H Pulse Rate [ 102 H From Monitor] Respiratory 32 H 32 H 36 H Rate Blood Pressure 91/43 91/43 90/40 O2 Sat by Pulse 98 96 100 Oximetry O2 Sat by Pulse Oximetry [ Anterior Bilateral Throughout] O2 Sat by Pulse Oximetry [ Throughout] 04/05/21 04/05/21 04/05/21 08:31 08:48 09:00 Temperature Pulse Rate 102 H 100 H 103 H Pulse Rate [ From Monitor] Respiratory 31 H 30 H Rate Blood Pressure 90/40 90/40 122/68 O2 Sat by Pulse 92 97 97 Oximetry O2 Sat by Pulse Oximetry [ Anterior Bilateral Throughout] O2 Sat by Pulse Oximetry [ Throughout] 04/05/21 04/05/21 04/05/21 09:31 10:00 10:31 Temperature Pulse Rate 107 H 101 H 110 H Pulse Rate [ From Monitor] Respiratory 31 H 16 39 H Rate Blood Pressure 122/68 126/58 122/68 O2 Sat by Pulse 100 96 Oximetry O2 Sat by Pulse Oximetry [ Anterior Bilateral Throughout] O2 Sat by Pulse Oximetry [ Throughout] 04/05/21 04/05/21 04/05/21 11:00 11:31 12:00 Temperature 98.1 F Pulse Rate 110 H 102 H 106 H Pulse Rate [ From Monitor] Respiratory 31 H 30 H Rate Blood Pressure 125/77 104/36 141/75 O2 Sat by Pulse 84 94 Oximetry O2 Sat by Pulse Oximetry [ Anterior Bilateral Throughout] O2 Sat by Pulse Oximetry [ Throughout] 04/05/21 04/05/21 04/05/21 12:08 12:16 12:30 Temperature 101 F H Pulse Rate 103 H 101 H 102 H Pulse Rate [ From Monitor] Respiratory 19 Rate Blood Pressure 140/84 145/76 141/75 O2 Sat by Pulse Oximetry O2 Sat by Pulse 93 Oximetry [ Anterior Bilateral Throughout] O2 Sat by Pulse 93 Oximetry [ Throughout] 04/05/21 04/05/21 04/05/21 12:45 13:00 13:15 Temperature Pulse Rate 104 H 107 H 106 H Pulse Rate [ From Monitor] Respiratory Rate Blood Pressure 146/72 127/46 123/45 O2 Sat by Pulse Oximetry O2 Sat by Pulse Oximetry [ Anterior Bilateral Throughout] O2 Sat by Pulse Oximetry [ Throughout] Constitutional: no acute distress, other (morbidly obese female with mild ventilator dyssynchrony) Eyes: non-icteric, other (scleral erythema / bleeding is improving) ENT: oropharynx moist, other (ETT 25 cm BALJINDER) Neck: supple, no lymphadenopathy, no JVD, other (large circumference) Effort: mildly labored Ascultation: Bilateral: diminished breath sounds, rhonchi Percussion: Bilateral: not dull Cardiovascular: regular rate and rhythm Gastrointestinal: normoactive bowel sounds, soft, non-tender, non-distended (protuberant) Integumentary: rash ( ), other Extremities: no cyanosis, pulses normal, no ischemia or petechiae, edema (trace peripheral) Neurologic: non-focal exam (grossly), pupils equal and round, CN II-XII normal, motor strength normal and, other (moves all extremities spontaneously; sedated now) Psychiatric: other (unasble to assess) CBC and BMP: 04/05/21 05:20 04/05/21 05:20 ABG, PT/INR, D-dimer: ABG ABG pH 7.257 pH Units (7.350-7.450) L 04/04/21 21:14 POC ABG pCO2 Cancelled 04/03/21 20:45 ABG pCO2 56.6 mm Hg 04/04/21 21:14 POC ABG pO2 Cancelled 04/03/21 20:45 ABG pO2 73.8 mm Hg (80.0-90.0) L 04/04/21 21:14 POC ABG HCO3 Cancelled 04/03/21 20:45 ABG O2 Saturation 91.6 % (95.0-99.0) L 04/04/21 21:14 PT/INR, D-dimer PT 13.9 Sec. (12.2-14.9) 04/04/21 07:55 INR 0.96 (0.87-1.13) 04/04/21 07:55 D-Dimer 2607.12 ng/mlDDU (0-234) H 03/30/21 04:00 Abnormal lab findings: Abnormal Labs 03/13/21 03/13/21 03/13/21 13:26 13:26 15:40 WBC RBC Hgb Hct MCH 27 L MCHC RDW 17.0 H Plt Count Lymph % (Auto) [place] # (Auto) Eos # (Auto) Seg Neutrophils % Eosinophils % (Manual) Basophils % (Manual) Seg Neutrophils # Seg Neutrophils # Man Lymphocytes # (Manual) Eosinophils # (Manual) Basophils # (Manual) Percent Retic PT INR Fibrinogen D-Dimer ABG pH POC ABG pCO2 POC ABG pO2 ABG pO2 ABG HCO3 ABG O2 Saturation ABG Base Excess ABG Hemoglobin ABG Oxyhemoglobin ABG Sodium ABG Potassium ABG Chloride ABG Glucose Oxyhemoglobin Carboxyhemoglobin Sodium 136 L Potassium Chloride Carbon Dioxide BUN Creatinine Glucose 125 H 130 H POC Glucose Hemoglobin A1c Calcium Phosphorus Magnesium AST ALT Alkaline Phosphatase Lactate Dehydrogenase 235 H C-Reactive Protein 4.30 H Total Protein Albumin Triglycerides Arterial Blood Glucose Arterial Blood Ionized Calcium Urine Creatinine Random Vancomycin Coronavirus (PCR) Crossmatch 03/13/21 03/14/21 03/14/21 21:33 03:35 06:21 WBC 20.0 H RBC Hgb Hct MCH 27 L MCHC RDW 17.5 H Plt Count Lymph % (Auto) 7.[address] [place] # (Auto) 1.3 H Eos # (Auto) Seg Neutrophils % 85.4 H Eosinophils % (Manual) Basophils % (Manual) Seg Neutrophils # 17.1 H Seg Neutrophils # Man Lymphocytes # (Manual) Eosinophils # (Manual) Basophils # (Manual) Percent Retic PT INR Fibrinogen D-Dimer ABG pH 7.323 L 7.234 L POC ABG pCO2 POC ABG pO2 ABG pO2 69.8 L ABG HCO3 ABG O2 Saturation 92.9 L 94.9 L ABG Base Excess -3.3 L -5.4 L ABG Hemoglobin ABG Oxyhemoglobin ABG Sodium ABG Potassium ABG Chloride ABG Glucose Oxyhemoglobin 91.2 L 93.2 L Carboxyhemoglobin Sodium Potassium Chloride Carbon Dioxide BUN Creatinine Glucose POC Glucose Hemoglobin A1c Calcium Phosphorus Magnesium AST ALT Alkaline Phosphatase Lactate Dehydrogenase C-Reactive Protein Total Protein Albumin Triglycerides Arterial Blood Glucose Arterial Blood Ionized Calcium Urine Creatinine Random Vancomycin Coronavirus (PCR) Crossmatch 03/14/21 03/14/21 03/14/21 06:21 07:47 11:21 WBC RBC Hgb Hct MCH MCHC RDW Plt Count Lymph % (Auto) [place] # (Auto) Eos # (Auto) Seg Neutrophils % Eosinophils % (Manual) Basophils % (Manual) Seg Neutrophils # Seg Neutrophils # Man Lymphocytes # (Manual) Eosinophils # (Manual) Basophils # (Manual) Percent Retic PT INR Fibrinogen D-Dimer ABG pH POC ABG pCO2 POC ABG pO2 ABG pO2 ABG HCO3 ABG O2 Saturation ABG Base Excess ABG Hemoglobin ABG Oxyhemoglobin ABG Sodium ABG Potassium ABG Chloride ABG Glucose Oxyhemoglobin Carboxyhemoglobin Sodium 136 L 136 L Potassium 6.2 H* D 5.4 H Chloride Carbon Dioxide 21 L 21 L BUN Creatinine 1.5 H D 1.8 H Glucose 144 H 141 H POC Glucose 147 H Hemoglobin A1c Calcium Phosphorus Magnesium AST ALT Alkaline Phosphatase Lactate Dehydrogenase C-Reactive Protein Total Protein 8.7 H 9.2 H Albumin 3.8 L Triglycerides Arterial Blood Glucose Arterial Blood Ionized Calcium Urine Creatinine Random Vancomycin Coronavirus (PCR) Crossmatch 03/14/21 03/14/21 03/14/21 17:29 17:50 18:35 WBC RBC Hgb Hct MCH MCHC RDW Plt Count Lymph % (Auto) [place] # (Auto) Eos # (Auto) Seg Neutrophils % Eosinophils % (Manual) Basophils % (Manual) Seg Neutrophils # Seg Neutrophils # Man Lymphocytes # (Manual) Eosinophils # (Manual) Basophils # (Manual) Percent Retic PT INR Fibrinogen D-Dimer ABG pH POC ABG pCO2 POC ABG pO2 ABG pO2 ABG HCO3 ABG O2 Saturation ABG Base Excess ABG Hemoglobin ABG Oxyhemoglobin ABG Sodium ABG Potassium ABG Chloride ABG Glucose Oxyhemoglobin Carboxyhemoglobin Sodium 135 L Potassium 6.4 H* Chloride Carbon Dioxide 15 L BUN 26 H Creatinine 3.4 H D Glucose 165 H POC Glucose 209 H Hemoglobin A1c Calcium Phosphorus Magnesium AST ALT Alkaline Phosphatase Lactate Dehydrogenase C-Reactive Protein Total Protein Albumin Triglycerides Arterial Blood Glucose Arterial Blood Ionized Calcium Urine Creatinine 40.1 H Random Vancomycin Coronavirus (PCR) Crossmatch 03/14/21 03/14/21 03/14/21 18:46 22:23 23:52 WBC RBC Hgb Hct MCH MCHC RDW Plt Count Lymph % (Auto) [place] # (Auto) Eos # (Auto) Seg Neutrophils % Eosinophils % (Manual) Basophils % (Manual) Seg Neutrophils # Seg Neutrophils # Man Lymphocytes # (Manual) Eosinophils # (Manual) Basophils # (Manual) Percent Retic PT INR Fibrinogen D-Dimer ABG pH 7.270 L POC ABG pCO2 POC ABG pO2 63.4 L ABG pO2 ABG HCO3 ABG O2 Saturation ABG Base Excess ABG Hemoglobin ABG Oxyhemoglobin 90.2 L ABG Sodium 134.9 L ABG Potassium 5.3 H ABG Chloride ABG Glucose 134 H Oxyhemoglobin Carboxyhemoglobin Sodium 136 L Potassium 5.2 H Chloride Carbon Dioxide 20 L BUN 29 H Creatinine 3.6 H Glucose 236 H POC Glucose 128 H Hemoglobin A1c Calcium Phosphorus Magnesium AST ALT Alkaline Phosphatase Lactate Dehydrogenase C-Reactive Protein Total Protein Albumin 3.2 L Triglycerides Arterial Blood Glucose 134 H Arterial Blood Ionized Calcium Urine Creatinine Random Vancomycin Coronavirus (PCR) Crossmatch 03/14/21 03/15/21 03/15/21 Unknown 05:00 05:09 WBC 22.5 H RBC Hgb Hct MCH 27 L MCHC RDW 17.6 H Plt Count Lymph % (Auto) [place] # (Auto) Eos # (Auto) Seg Neutrophils % Eosinophils % (Manual) Basophils % (Manual) Seg Neutrophils # Seg Neutrophils # Man Lymphocytes # (Manual) Eosinophils # (Manual) Basophils # (Manual) Percent Retic PT INR Fibrinogen D-Dimer ABG pH POC ABG pCO2 POC ABG pO2 ABG pO2 ABG HCO3 ABG O2 Saturation ABG Base Excess ABG Hemoglobin ABG Oxyhemoglobin ABG Sodium ABG Potassium ABG Chloride ABG Glucose Oxyhemoglobin Carboxyhemoglobin Sodium Potassium Chloride Carbon Dioxide BUN Creatinine Glucose POC Glucose 116 H Hemoglobin A1c Calcium Phosphorus Magnesium AST ALT Alkaline Phosphatase Lactate Dehydrogenase C-Reactive Protein Total Protein Albumin Triglycerides Arterial Blood Glucose Arterial Blood Ionized Calcium Urine Creatinine Random Vancomycin Coronavirus (PCR) Positive A Crossmatch 03/15/21 03/15/21 03/15/21 05:09 05:09 05:09 WBC RBC Hgb Hct MCH MCHC RDW Plt Count Lymph % (Auto) [place] # (Auto) Eos # (Auto) Seg Neutrophils % Eosinophils % (Manual) Basophils % (Manual) Seg Neutrophils # Seg Neutrophils # Man Lymphocytes # (Manual) Eosinophils # (Manual) Basophils # (Manual) Percent Retic PT INR Fibrinogen D-Dimer ABG pH POC ABG pCO2 POC ABG pO2 ABG pO2 ABG HCO3 ABG O2 Saturation ABG Base Excess ABG Hemoglobin ABG Oxyhemoglobin ABG Sodium ABG Potassium ABG Chloride ABG Glucose Oxyhemoglobin Carboxyhemoglobin Sodium 136 L Potassium 6.5 H* D Chloride Carbon Dioxide 17 L BUN 41 H Creatinine 5.3 H Glucose 128 H POC Glucose Hemoglobin A1c 6.3 H Calcium Phosphorus Magnesium AST ALT Alkaline Phosphatase Lactate Dehydrogenase C-Reactive Protein 12.10 H Total Protein Albumin 3.1 L Triglycerides Arterial Blood Glucose Arterial Blood Ionized Calcium Urine Creatinine Random Vancomycin Coronavirus (PCR) Crossmatch 03/15/21 03/15/21 03/15/21 10:00 21:50 23:39 WBC RBC Hgb Hct MCH MCHC RDW Plt Count Lymph % (Auto) [place] # (Auto) Eos # (Auto) Seg Neutrophils % Eosinophils % (Manual) Basophils % (Manual) Seg Neutrophils # Seg Neutrophils # Man Lymphocytes # (Manual) Eosinophils # (Manual) Basophils # (Manual) Percent Retic PT INR Fibrinogen D-Dimer ABG pH 7.098 L POC ABG pCO2 72.7 H POC ABG pO2 ABG pO2 162.5 H ABG HCO3 ABG O2 Saturation ABG Base Excess ABG Hemoglobin 10.1 L ABG Oxyhemoglobin ABG Sodium ABG Potassium 5.7 H ABG Chloride ABG Glucose Oxyhemoglobin Carboxyhemoglobin 0.4 L Sodium Potassium Chloride Carbon Dioxide BUN Creatinine Glucose POC Glucose 156 H Hemoglobin A1c Calcium Phosphorus Magnesium AST ALT Alkaline Phosphatase Lactate Dehydrogenase C-Reactive Protein Total Protein Albumin Triglycerides Arterial Blood Glucose Arterial Blood Ionized Calcium Urine Creatinine Random Vancomycin Coronavirus (PCR) Crossmatch 03/16/21 03/16/21 03/16/21 05:00 05:30 05:30 WBC 16.7 H RBC 3.59 L Hgb 9.6 L Hct 30.1 L MCH 27 L MCHC RDW 17.5 H Plt Count Lymph % (Auto) [place] # (Auto) Eos # (Auto) Seg Neutrophils % Eosinophils % (Manual) Basophils % (Manual) Seg Neutrophils # Seg Neutrophils # Man Lymphocytes # (Manual) Eosinophils # (Manual) Basophils # (Manual) Percent Retic PT INR Fibrinogen D-Dimer ABG pH POC ABG pCO2 POC ABG pO2 ABG pO2 ABG HCO3 ABG O2 Saturation ABG Base Excess ABG Hemoglobin ABG Oxyhemoglobin ABG Sodium ABG Potassium ABG Chloride ABG Glucose Oxyhemoglobin Carboxyhemoglobin Sodium Potassium Chloride Carbon Dioxide BUN 46 H Creatinine 6.2 H Glucose 131 H POC Glucose Hemoglobin A1c Calcium Phosphorus 6.00 H D Magnesium AST ALT Alkaline Phosphatase Lactate Dehydrogenase 318 H C-Reactive Protein 18.60 H Total Protein Albumin 3.0 L Triglycerides Arterial Blood Glucose Arterial Blood Ionized Calcium Urine Creatinine Random Vancomycin Coronavirus (PCR) Crossmatch 03/16/21 03/16/21 03/16/21 05:51 06:37 08:58 WBC RBC Hgb Hct MCH MCHC RDW Plt Count Lymph % (Auto) [place] # (Auto) Eos # (Auto) Seg Neutrophils % Eosinophils % (Manual) Basophils % (Manual) Seg Neutrophils # Seg Neutrophils # Man Lymphocytes # (Manual) Eosinophils # (Manual) Basophils # (Manual) Percent Retic PT INR Fibrinogen D-Dimer 3041.12 H ABG pH POC ABG pCO2 POC ABG pO2 ABG pO2 141.5 H ABG HCO3 ABG O2 Saturation ABG Base Excess ABG Hemoglobin 9.7 L ABG Oxyhemoglobin ABG Sodium ABG Potassium ABG Chloride ABG Glucose Oxyhemoglobin Carboxyhemoglobin Sodium Potassium Chloride Carbon Dioxide BUN Creatinine Glucose POC Glucose 126 H Hemoglobin A1c Calcium Phosphorus Magnesium AST ALT Alkaline Phosphatase Lactate Dehydrogenase C-Reactive Protein Total Protein Albumin Triglycerides Arterial Blood Glucose Arterial Blood Ionized Calcium Urine Creatinine Random Vancomycin Coronavirus (PCR) Crossmatch 03/16/21 03/16/21 03/16/21 12:11 16:51 21:00 WBC RBC Hgb Hct MCH MCHC RDW Plt Count Lymph % (Auto) [place] # (Auto) Eos # (Auto) Seg Neutrophils % Eosinophils % (Manual) Basophils % (Manual) Seg Neutrophils # Seg Neutrophils # Man Lymphocytes # (Manual) Eosinophils # (Manual) Basophils # (Manual) Percent Retic PT INR Fibrinogen D-Dimer ABG pH 7.239 L POC ABG pCO2 61.5 H POC ABG pO2 80.8 L ABG pO2 ABG HCO3 ABG O2 Saturation ABG Base Excess ABG Hemoglobin 11.4 L ABG Oxyhemoglobin 93.5 L ABG Sodium ABG Potassium 5.4 H ABG Chloride ABG Glucose 137 H Oxyhemoglobin Carboxyhemoglobin 0.2 L Sodium Potassium Chloride Carbon Dioxide BUN Creatinine Glucose POC Glucose 156 H 133 H Hemoglobin A1c Calcium Phosphorus Magnesium AST ALT Alkaline Phosphatase Lactate Dehydrogenase C-Reactive Protein Total Protein Albumin Triglycerides Arterial Blood Glucose 137 H Arterial Blood Ionized Calcium Urine Creatinine Random Vancomycin Coronavirus (PCR) Crossmatch 03/16/21 03/17/21 03/17/21 23:42 05:23 05:23 WBC 18.4 H RBC Hgb Hct MCH 27 L MCHC RDW 17.4 H Plt Count Lymph % (Auto) [place] # (Auto) Eos # (Auto) Seg Neutrophils % Eosinophils % (Manual) Basophils % (Manual) Seg Neutrophils # Seg Neutrophils # Man Lymphocytes # (Manual) Eosinophils # (Manual) Basophils # (Manual) Percent Retic PT INR Fibrinogen D-Dimer ABG pH POC ABG pCO2 POC ABG pO2 ABG pO2 ABG HCO3 ABG O2 Saturation ABG Base Excess ABG Hemoglobin ABG Oxyhemoglobin ABG Sodium ABG Potassium ABG Chloride ABG Glucose Oxyhemoglobin Carboxyhemoglobin Sodium Potassium 5.2 H Chloride Carbon Dioxide 21 L BUN 79 H Creatinine 8.6 H Glucose 124 H POC Glucose 133 H Hemoglobin A1c Calcium Phosphorus Magnesium AST ALT Alkaline Phosphatase Lactate Dehydrogenase C-Reactive Protein Total Protein Albumin 3.2 L Triglycerides 285 H Arterial Blood Glucose Arterial Blood Ionized Calcium Urine Creatinine Random Vancomycin Coronavirus (PCR) Crossmatch 03/17/21 03/17/21 03/17/21 05:23 10:48 12:20 WBC RBC Hgb Hct MCH MCHC RDW Plt Count Lymph % (Auto) [place] # (Auto) Eos # (Auto) Seg Neutrophils % Eosinophils % (Manual) Basophils % (Manual) Seg Neutrophils # Seg Neutrophils # Man Lymphocytes # (Manual) Eosinophils # (Manual) Basophils # (Manual) Percent Retic PT INR Fibrinogen D-Dimer ABG pH 7.294 L POC ABG pCO2 POC ABG pO2 ABG pO2 90.3 H ABG HCO3 ABG O2 Saturation ABG Base Excess ABG Hemoglobin 9.9 L ABG Oxyhemoglobin ABG Sodium ABG Potassium ABG Chloride ABG Glucose Oxyhemoglobin Carboxyhemoglobin Sodium Potassium 5.2 H Chloride Carbon Dioxide 21 L BUN 79 H Creatinine 8.4 H Glucose 125 H POC Glucose 171 H Hemoglobin A1c Calcium Phosphorus 9.90 H D Magnesium 2.40 H AST ALT Alkaline Phosphatase Lactate Dehydrogenase C-Reactive Protein Total Protein Albumin Triglycerides Arterial Blood Glucose Arterial Blood Ionized Calcium Urine Creatinine Random Vancomycin Coronavirus (PCR) Crossmatch 03/17/21 03/17/21 03/18/21 17:24 21:00 04:30 WBC RBC Hgb Hct MCH MCHC RDW Plt Count Lymph % (Auto) [place] # (Auto) Eos # (Auto) Seg Neutrophils % Eosinophils % (Manual) Basophils % (Manual) Seg Neutrophils # Seg Neutrophils # Man Lymphocytes # (Manual) Eosinophils # (Manual) Basophils # (Manual) Percent Retic PT INR Fibrinogen D-Dimer 9953.09 H ABG pH 7.310 L POC ABG pCO2 54.5 H POC ABG pO2 62.3 L ABG pO2 ABG HCO3 ABG O2 Saturation ABG Base Excess ABG Hemoglobin 10.2 L ABG Oxyhemoglobin 88.6 L ABG Sodium ABG Potassium 4.7 H ABG Chloride ABG Glucose 99 H Oxyhemoglobin Carboxyhemoglobin 0.3 L Sodium Potassium Chloride Carbon Dioxide BUN Creatinine Glucose POC Glucose 121 H Hemoglobin A1c Calcium Phosphorus Magnesium AST ALT Alkaline Phosphatase Lactate Dehydrogenase C-Reactive Protein Total Protein Albumin Triglycerides Arterial Blood Glucose 99 H Arterial Blood Ionized Calcium 4.3 L Urine Creatinine Random Vancomycin Coronavirus (PCR) Crossmatch 03/18/21 03/18/21 03/18/21 04:30 04:30 11:34 WBC 12.8 H RBC 3.49 L Hgb 9.4 L Hct 29.3 L MCH 27 L MCHC RDW 17.4 H Plt Count Lymph % (Auto) [place] # (Auto) Eos # (Auto) Seg Neutrophils % Eosinophils % (Manual) Basophils % (Manual) Seg Neutrophils # Seg Neutrophils # Man Lymphocytes # (Manual) Eosinophils # (Manual) Basophils # (Manual) Percent Retic PT INR Fibrinogen D-Dimer ABG pH POC ABG pCO2 POC ABG pO2 ABG pO2 ABG HCO3 ABG O2 Saturation ABG Base Excess ABG Hemoglobin ABG Oxyhemoglobin ABG Sodium ABG Potassium ABG Chloride ABG Glucose Oxyhemoglobin Carboxyhemoglobin Sodium Potassium Chloride Carbon Dioxide BUN 69 H Creatinine 7.3 H Glucose POC Glucose 114 H Hemoglobin A1c Calcium 8.2 L Phosphorus 7.60 H D Magnesium AST ALT Alkaline Phosphatase Lactate Dehydrogenase 477 H C-Reactive Protein 6.90 H Total Protein Albumin Triglycerides Arterial Blood Glucose Arterial Blood Ionized Calcium Urine Creatinine Random Vancomycin Coronavirus (PCR) Crossmatch 03/18/21 03/19/21 03/19/21 21:44 04:13 04:13 WBC 13.7 H RBC 3.32 L Hgb 9.0 L Hct 28.1 L MCH 27 L MCHC RDW 16.9 H Plt Count Lymph % (Auto) [place] # (Auto) Eos # (Auto) Seg Neutrophils % Eosinophils % (Manual) Basophils % (Manual) Seg Neutrophils # Seg Neutrophils # Man Lymphocytes # (Manual) Eosinophils # (Manual) Basophils # (Manual) Percent Retic PT INR Fibrinogen D-Dimer ABG pH 7.290 L POC ABG pCO2 POC ABG pO2 ABG pO2 119.7 H ABG HCO3 28.0 H ABG O2 Saturation ABG Base Excess ABG Hemoglobin 9.6 L ABG Oxyhemoglobin ABG Sodium ABG Potassium ABG Chloride ABG Glucose Oxyhemoglobin Carboxyhemoglobin Sodium Potassium Chloride Carbon Dioxide BUN Creatinine Glucose POC Glucose Hemoglobin A1c Calcium Phosphorus Magnesium AST ALT Alkaline Phosphatase Lactate Dehydrogenase C-Reactive Protein Total Protein Albumin Triglycerides Arterial Blood Glucose Arterial Blood Ionized Calcium Urine Creatinine Random Vancomycin 43.5 H Coronavirus (PCR) Crossmatch 03/19/21 03/19/21 03/19/21 04:13 05:59 11:40 WBC RBC Hgb Hct MCH MCHC RDW Plt Count Lymph % (Auto) [place] # (Auto) Eos # (Auto) Seg Neutrophils % Eosinophils % (Manual) Basophils % (Manual) Seg Neutrophils # Seg Neutrophils # Man Lymphocytes # (Manual) Eosinophils # (Manual) Basophils # (Manual) Percent Retic PT INR Fibrinogen D-Dimer ABG pH POC ABG pCO2 POC ABG pO2 ABG pO2 ABG HCO3 ABG O2 Saturation ABG Base Excess ABG Hemoglobin ABG Oxyhemoglobin ABG Sodium ABG Potassium ABG Chloride ABG Glucose Oxyhemoglobin Carboxyhemoglobin Sodium Potassium Chloride Carbon Dioxide BUN 55 H Creatinine 7.0 H Glucose POC Glucose 116 H 145 H Hemoglobin A1c Calcium 8.1 L Phosphorus 7.90 H Magnesium AST ALT Alkaline Phosphatase Lactate Dehydrogenase C-Reactive Protein Total Protein Albumin Triglycerides Arterial Blood Glucose Arterial Blood Ionized Calcium Urine Creatinine Random Vancomycin Coronavirus (PCR) Crossmatch 03/19/21 03/19/21 03/20/21 17:01 23:41 04:00 WBC 15.6 H RBC 3.55 L Hgb 9.6 L Hct MCH 27 L MCHC RDW 16.8 H Plt Count 139 L Lymph % (Auto) [place] # (Auto) Eos # (Auto) Seg Neutrophils % Eosinophils % (Manual) Basophils % (Manual) Seg Neutrophils # Seg Neutrophils # Man Lymphocytes # (Manual) Eosinophils # (Manual) Basophils # (Manual) Percent Retic PT INR Fibrinogen D-Dimer ABG pH POC ABG pCO2 POC ABG pO2 ABG pO2 ABG HCO3 ABG O2 Saturation ABG Base Excess ABG Hemoglobin ABG Oxyhemoglobin ABG Sodium ABG Potassium ABG Chloride ABG Glucose Oxyhemoglobin Carboxyhemoglobin Sodium Potassium Chloride Carbon Dioxide BUN Creatinine Glucose POC Glucose 111 H 118 H Hemoglobin A1c Calcium Phosphorus Magnesium AST ALT Alkaline Phosphatase Lactate Dehydrogenase C-Reactive Protein Total Protein Albumin Triglycerides Arterial Blood Glucose Arterial Blood Ionized Calcium Urine Creatinine Random Vancomycin Coronavirus (PCR) Crossmatch 03/20/21 03/20/21 03/20/21 04:00 04:00 04:37 WBC RBC Hgb Hct MCH MCHC RDW Plt Count Lymph % (Auto) [place] # (Auto) Eos # (Auto) Seg Neutrophils % Eosinophils % (Manual) Basophils % (Manual) Seg Neutrophils # Seg Neutrophils # Man Lymphocytes # (Manual) Eosinophils # (Manual) Basophils # (Manual) Percent Retic PT INR Fibrinogen D-Dimer > 62284 H ABG pH 7.306 L POC ABG pCO2 POC ABG pO2 ABG pO2 ABG HCO3 27.9 H ABG O2 Saturation ABG Base Excess ABG Hemoglobin 5.2 L ABG Oxyhemoglobin ABG Sodium ABG Potassium ABG Chloride ABG Glucose Oxyhemoglobin Carboxyhemoglobin Sodium Potassium 5.2 H Chloride 97.6 L Carbon Dioxide BUN 52 H Creatinine 6.2 H Glucose 104 H POC Glucose Hemoglobin A1c Calcium Phosphorus 8.60 H Magnesium AST ALT Alkaline Phosphatase Lactate Dehydrogenase C-Reactive Protein 6.90 H Total Protein Albumin Triglycerides Arterial Blood Glucose Arterial Blood Ionized Calcium Urine Creatinine Random Vancomycin Coronavirus (PCR) Crossmatch 03/20/21 03/20/21 03/20/21 13:50 17:46 17:56 WBC RBC Hgb Hct MCH MCHC RDW Plt Count Lymph % (Auto) [place] # (Auto) Eos # (Auto) Seg Neutrophils % Eosinophils % (Manual) Basophils % (Manual) Seg Neutrophils # Seg Neutrophils # Man Lymphocytes # (Manual) Eosinophils # (Manual) Basophils # (Manual) Percent Retic PT INR Fibrinogen D-Dimer ABG pH POC ABG pCO2 POC ABG pO2 ABG pO2 ABG HCO3 ABG O2 Saturation ABG Base Excess ABG Hemoglobin ABG Oxyhemoglobin ABG Sodium ABG Potassium ABG Chloride ABG Glucose Oxyhemoglobin Carboxyhemoglobin Sodium Potassium Chloride Carbon Dioxide BUN 63 H 43 H Creatinine Glucose POC Glucose 145 H Hemoglobin A1c Calcium Phosphorus Magnesium AST ALT Alkaline Phosphatase Lactate Dehydrogenase C-Reactive Protein Total Protein Albumin Triglycerides Arterial Blood Glucose Arterial Blood Ionized Calcium Urine Creatinine Random Vancomycin Coronavirus (PCR) Crossmatch 03/20/21 03/21/21 03/21/21 23:18 06:58 06:58 WBC 14.4 H RBC 3.41 L Hgb 9.5 L Hct 28.6 L MCH MCHC RDW 17.4 H Plt Count 107 L Lymph % (Auto) [place] # (Auto) Eos # (Auto) Seg Neutrophils % Eosinophils % (Manual) Basophils % (Manual) Seg Neutrophils # Seg Neutrophils # Man Lymphocytes # (Manual) Eosinophils # (Manual) Basophils # (Manual) Percent Retic PT INR Fibrinogen D-Dimer ABG pH POC ABG pCO2 POC ABG pO2 ABG pO2 ABG HCO3 ABG O2 Saturation ABG Base Excess ABG Hemoglobin ABG Oxyhemoglobin ABG Sodium ABG Potassium ABG Chloride ABG Glucose Oxyhemoglobin Carboxyhemoglobin Sodium Potassium Chloride Carbon Dioxide BUN 60 H Creatinine 7.7 H Glucose POC Glucose 106 H Hemoglobin A1c Calcium Phosphorus Magnesium AST ALT Alkaline Phosphatase Lactate Dehydrogenase C-Reactive Protein Total Protein Albumin Triglycerides Arterial Blood Glucose Arterial Blood Ionized Calcium Urine Creatinine Random Vancomycin Coronavirus (PCR) Crossmatch 03/21/21 03/21/21 03/21/21 11:11 18:04 Unknown WBC RBC Hgb Hct MCH MCHC RDW Plt Count Lymph % (Auto) [place] # (Auto) Eos # (Auto) Seg Neutrophils % Eosinophils % (Manual) Basophils % (Manual) Seg Neutrophils # Seg Neutrophils # Man Lymphocytes # (Manual) Eosinophils # (Manual) Basophils # (Manual) Percent Retic PT INR Fibrinogen D-Dimer ABG pH 7.270 L POC ABG pCO2 58.7 H POC ABG pO2 76.9 L ABG pO2 ABG HCO3 ABG O2 Saturation ABG Base Excess ABG Hemoglobin 9.9 L ABG Oxyhemoglobin 92.4 L ABG Sodium 135.8 L ABG Potassium 4.6 H ABG Chloride ABG Glucose Oxyhemoglobin Carboxyhemoglobin 0.1 L Sodium Potassium Chloride Carbon Dioxide BUN Creatinine Glucose POC Glucose 109 H 141 H Hemoglobin A1c Calcium Phosphorus Magnesium AST ALT Alkaline Phosphatase Lactate Dehydrogenase C-Reactive Protein Total Protein Albumin Triglycerides Arterial Blood Glucose Arterial Blood Ionized Calcium 4.5 L Urine Creatinine Random Vancomycin Coronavirus (PCR) Crossmatch 03/22/21 03/22/21 03/22/21 03:09 07:10 10:00 WBC RBC Hgb Hct MCH MCHC RDW Plt Count Lymph % (Auto) [place] # (Auto) Eos # (Auto) Seg Neutrophils % Eosinophils % (Manual) Basophils % (Manual) Seg Neutrophils # Seg Neutrophils # Man Lymphocytes # (Manual) Eosinophils # (Manual) Basophils # (Manual) Percent Retic PT INR Fibrinogen D-Dimer ABG pH 7.206 L 7.245 L POC ABG pCO2 55.6 H POC ABG pO2 ABG pO2 90.6 H ABG HCO3 ABG O2 Saturation ABG Base Excess -4.4 L ABG Hemoglobin 9.0 L 8.4 L ABG Oxyhemoglobin ABG Sodium 123.4 L ABG Potassium 5.6 H ABG Chloride ABG Glucose 106 H Oxyhemoglobin 94.5 L Carboxyhemoglobin 0.1 L Sodium Potassium 5.4 H Chloride 96.8 L Carbon Dioxide BUN 89 H Creatinine 8.7 H Glucose 131 H POC Glucose Hemoglobin A1c Calcium Phosphorus Magnesium AST ALT Alkaline Phosphatase Lactate Dehydrogenase C-Reactive Protein 9.40 H Total Protein Albumin Triglycerides Arterial Blood Glucose 106 H Arterial Blood Ionized Calcium Urine Creatinine Random Vancomycin Coronavirus (PCR) Crossmatch 03/22/21 03/22/21 03/22/21 10:00 12:37 13:19 WBC RBC 3.05 L Hgb 8.4 L Hct 25.5 L MCH MCHC RDW 17.5 H Plt Count 108 L Lymph % (Auto) [place] # (Auto) Eos # (Auto) Seg Neutrophils % Eosinophils % (Manual) Basophils % (Manual) Seg Neutrophils # Seg Neutrophils # Man Lymphocytes # (Manual) Eosinophils # (Manual) Basophils # (Manual) Percent Retic PT INR Fibrinogen D-Dimer ABG pH POC ABG pCO2 POC ABG pO2 ABG pO2 ABG HCO3 ABG O2 Saturation ABG Base Excess ABG Hemoglobin ABG Oxyhemoglobin ABG Sodium ABG Potassium ABG Chloride ABG Glucose Oxyhemoglobin Carboxyhemoglobin Sodium Potassium Chloride Carbon Dioxide BUN Creatinine 8.7 H Glucose POC Glucose 140 H Hemoglobin A1c Calcium Phosphorus Magnesium AST ALT Alkaline Phosphatase Lactate Dehydrogenase C-Reactive Protein Total Protein Albumin Triglycerides Arterial Blood Glucose Arterial Blood Ionized Calcium Urine Creatinine Random Vancomycin Coronavirus (PCR) Crossmatch 03/22/21 03/22/21 03/22/21 13:40 17:14 18:21 WBC RBC Hgb Hct MCH MCHC RDW Plt Count Lymph % (Auto) [place] # (Auto) Eos # (Auto) Seg Neutrophils % Eosinophils % (Manual) Basophils % (Manual) Seg Neutrophils # Seg Neutrophils # Man Lymphocytes # (Manual) Eosinophils # (Manual) Basophils # (Manual) Percent Retic PT 15.8 H INR 1.14 H Fibrinogen D-Dimer > 43555 H ABG pH POC ABG pCO2 POC ABG pO2 ABG pO2 ABG HCO3 ABG O2 Saturation ABG Base Excess ABG Hemoglobin ABG Oxyhemoglobin ABG Sodium ABG Potassium ABG Chloride ABG Glucose Oxyhemoglobin Carboxyhemoglobin Sodium Potassium Chloride Carbon Dioxide BUN Creatinine Glucose POC Glucose 117 H 112 H Hemoglobin A1c Calcium Phosphorus Magnesium AST ALT Alkaline Phosphatase Lactate Dehydrogenase C-Reactive Protein Total Protein Albumin Triglycerides Arterial Blood Glucose Arterial Blood Ionized Calcium Urine Creatinine Random Vancomycin Coronavirus (PCR) Crossmatch 03/22/21 03/22/21 03/23/21 21:25 22:57 04:30 WBC RBC Hgb Hct MCH MCHC RDW Plt Count Lymph % (Auto) [place] # (Auto) Eos # (Auto) Seg Neutrophils % Eosinophils % (Manual) Basophils % (Manual) Seg Neutrophils # Seg Neutrophils # Man Lymphocytes # (Manual) Eosinophils # (Manual) Basophils # (Manual) Percent Retic PT INR Fibrinogen D-Dimer ABG pH 7.188 L* POC ABG pCO2 POC ABG pO2 ABG pO2 97.9 H ABG HCO3 ABG O2 Saturation ABG Base Excess -3.7 L ABG Hemoglobin 9.2 L ABG Oxyhemoglobin ABG Sodium ABG Potassium ABG Chloride ABG Glucose Oxyhemoglobin 94.4 L Carboxyhemoglobin Sodium Potassium Chloride Carbon Dioxide BUN Creatinine Glucose POC Glucose 106 H Hemoglobin A1c Calcium Phosphorus Magnesium AST ALT Alkaline Phosphatase Lactate Dehydrogenase C-Reactive Protein Total Protein Albumin Triglycerides 381 H Arterial Blood Glucose Arterial Blood Ionized Calcium Urine Creatinine Random Vancomycin Coronavirus (PCR) Crossmatch 03/23/21 03/23/21 03/23/21 04:30 04:30 05:37 WBC 20.1 H RBC 3.17 L Hgb 8.6 L Hct 27.2 L MCH 27 L MCHC RDW 17.4 H Plt Count 118 L Lymph % (Auto) [place] # (Auto) Eos # (Auto) Seg Neutrophils % Eosinophils % (Manual) Basophils % (Manual) Seg Neutrophils # Seg Neutrophils # Man Lymphocytes # (Manual) Eosinophils # (Manual) Basophils # (Manual) Percent Retic PT INR Fibrinogen D-Dimer ABG pH POC ABG pCO2 POC ABG pO2 ABG pO2 ABG HCO3 ABG O2 Saturation ABG Base Excess ABG Hemoglobin ABG Oxyhemoglobin ABG Sodium ABG Potassium ABG Chloride ABG Glucose Oxyhemoglobin Carboxyhemoglobin Sodium Potassium 5.2 H Chloride 97.1 L Carbon Dioxide 21 L BUN 82 H Creatinine 9.1 H Glucose 109 H POC Glucose 130 H Hemoglobin A1c Calcium Phosphorus 10.80 H Magnesium 3.50 H AST ALT Alkaline Phosphatase Lactate Dehydrogenase C-Reactive Protein Total Protein Albumin Triglycerides Arterial Blood Glucose Arterial Blood Ionized Calcium Urine Creatinine Random Vancomycin Coronavirus (PCR) Crossmatch 03/23/21 03/23/21 03/23/21 08:44 11:30 16:09 WBC RBC Hgb Hct MCH MCHC RDW Plt Count Lymph % (Auto) [place] # (Auto) Eos # (Auto) Seg Neutrophils % Eosinophils % (Manual) Basophils % (Manual) Seg Neutrophils # Seg Neutrophils # Man Lymphocytes # (Manual) Eosinophils # (Manual) Basophils # (Manual) Percent Retic PT INR Fibrinogen D-Dimer ABG pH 7.190 L POC ABG pCO2 57.9 H POC ABG pO2 79.2 L ABG pO2 ABG HCO3 ABG O2 Saturation ABG Base Excess ABG Hemoglobin 11.8 L ABG Oxyhemoglobin 92.3 L ABG Sodium 131.0 L ABG Potassium 5.0 H ABG Chloride ABG Glucose 122 H Oxyhemoglobin Carboxyhemoglobin 0.4 L Sodium Potassium Chloride Carbon Dioxide BUN Creatinine Glucose POC Glucose 129 H 148 H Hemoglobin A1c Calcium Phosphorus Magnesium AST ALT Alkaline Phosphatase Lactate Dehydrogenase C-Reactive Protein Total Protein Albumin Triglycerides Arterial Blood Glucose 122 H Arterial Blood Ionized Calcium 4.4 L Urine Creatinine Random Vancomycin Coronavirus (PCR) Crossmatch 03/23/21 03/24/21 03/24/21 21:00 03:35 04:00 WBC 17.8 H RBC 2.96 L Hgb 8.1 L Hct 25.0 L MCH 27 L MCHC RDW 17.7 H Plt Count 124 L Lymph % (Auto) [place] # (Auto) Eos # (Auto) Seg Neutrophils % Eosinophils % (Manual) Basophils % (Manual) Seg Neutrophils # Seg Neutrophils # Man Lymphocytes # (Manual) Eosinophils # (Manual) Basophils # (Manual) Percent Retic PT INR Fibrinogen D-Dimer ABG pH 7.223 L POC ABG pCO2 50.3 H POC ABG pO2 114.4 H ABG pO2 ABG HCO3 ABG O2 Saturation ABG Base Excess ABG Hemoglobin 8.8 L ABG Oxyhemoglobin ABG Sodium 130.4 L ABG Potassium 5.1 H ABG Chloride ABG Glucose 126 H Oxyhemoglobin Carboxyhemoglobin 0.2 L Sodium Potassium Chloride Carbon Dioxide BUN Creatinine Glucose POC Glucose 148 H Hemoglobin A1c Calcium Phosphorus Magnesium AST ALT Alkaline Phosphatase Lactate Dehydrogenase C-Reactive Protein Total Protein Albumin Triglycerides Arterial Blood Glucose 126 H Arterial Blood Ionized Calcium 4.4 L Urine Creatinine Random Vancomycin Coronavirus (PCR) Crossmatch 03/24/21 03/24/21 03/24/21 04:00 06:49 12:29 WBC RBC Hgb Hct MCH MCHC RDW Plt Count Lymph % (Auto) [place] # (Auto) Eos # (Auto) Seg Neutrophils % Eosinophils % (Manual) Basophils % (Manual) Seg Neutrophils # Seg Neutrophils # Man Lymphocytes # (Manual) Eosinophils # (Manual) Basophils # (Manual) Percent Retic PT INR Fibrinogen D-Dimer ABG pH POC ABG pCO2 POC ABG pO2 ABG pO2 ABG HCO3 ABG O2 Saturation ABG Base Excess ABG Hemoglobin ABG Oxyhemoglobin ABG Sodium ABG Potassium ABG Chloride ABG Glucose Oxyhemoglobin Carboxyhemoglobin Sodium Potassium Chloride 95.6 L Carbon Dioxide 20 L BUN 108 H Creatinine 10.8 H Glucose 155 H POC Glucose 136 H 142 H Hemoglobin A1c Calcium Phosphorus Magnesium AST ALT Alkaline Phosphatase Lactate Dehydrogenase C-Reactive Protein Total Protein Albumin Triglycerides Arterial Blood Glucose Arterial Blood Ionized Calcium Urine Creatinine Random Vancomycin Coronavirus (PCR) Crossmatch 03/24/21 03/25/21 03/25/21 21:35 00:15 05:51 WBC RBC Hgb Hct MCH MCHC RDW Plt Count Lymph % (Auto) [place] # (Auto) Eos # (Auto) Seg Neutrophils % Eosinophils % (Manual) Basophils % (Manual) Seg Neutrophils # Seg Neutrophils # Man Lymphocytes # (Manual) Eosinophils # (Manual) Basophils # (Manual) Percent Retic PT INR Fibrinogen D-Dimer ABG pH 7.241 L POC ABG pCO2 POC ABG pO2 ABG pO2 72.4 L ABG HCO3 ABG O2 Saturation 90.3 L ABG Base Excess ABG Hemoglobin 7.9 L ABG Oxyhemoglobin ABG Sodium ABG Potassium ABG Chloride ABG Glucose Oxyhemoglobin 88.4 L Carboxyhemoglobin Sodium Potassium Chloride Carbon Dioxide BUN Creatinine Glucose POC Glucose 110 H 121 H Hemoglobin A1c Calcium Phosphorus Magnesium AST ALT Alkaline Phosphatase Lactate Dehydrogenase C-Reactive Protein Total Protein Albumin Triglycerides Arterial Blood Glucose Arterial Blood Ionized Calcium Urine Creatinine Random Vancomycin Coronavirus (PCR) Crossmatch 03/25/21 03/25/21 03/25/21 05:54 05:54 12:21 WBC 12.4 H RBC 2.52 L Hgb 6.9 L Hct 21.1 L MCH MCHC RDW 17.4 H Plt Count 102 L Lymph % (Auto) [place] # (Auto) Eos # (Auto) Seg Neutrophils % Eosinophils % (Manual) Basophils % (Manual) Seg Neutrophils # Seg Neutrophils # Man Lymphocytes # (Manual) Eosinophils # (Manual) Basophils # (Manual) Percent Retic PT INR Fibrinogen D-Dimer ABG pH POC ABG pCO2 POC ABG pO2 ABG pO2 ABG HCO3 ABG O2 Saturation ABG Base Excess ABG Hemoglobin ABG Oxyhemoglobin ABG Sodium ABG Potassium ABG Chloride ABG Glucose Oxyhemoglobin Carboxyhemoglobin Sodium Potassium Chloride 96.7 L Carbon Dioxide BUN 81 H Creatinine 8.1 H Glucose 116 H POC Glucose 138 H Hemoglobin A1c Calcium 8.2 L Phosphorus Magnesium AST ALT Alkaline Phosphatase Lactate Dehydrogenase C-Reactive Protein Total Protein Albumin Triglycerides Arterial Blood Glucose Arterial Blood Ionized Calcium Urine Creatinine Random Vancomycin Coronavirus (PCR) Crossmatch 03/25/21 03/25/21 03/25/21 13:45 17:32 21:30 WBC RBC Hgb Hct MCH MCHC RDW Plt Count Lymph % (Auto) [place] # (Auto) Eos # (Auto) Seg Neutrophils % Eosinophils % (Manual) Basophils % (Manual) Seg Neutrophils # Seg Neutrophils # Man Lymphocytes # (Manual) Eosinophils # (Manual) Basophils # (Manual) Percent Retic PT INR Fibrinogen D-Dimer ABG pH POC ABG pCO2 POC ABG pO2 ABG pO2 70.2 L ABG HCO3 ABG O2 Saturation ABG Base Excess ABG Hemoglobin 6.8 L ABG Oxyhemoglobin ABG Sodium ABG Potassium ABG Chloride ABG Glucose Oxyhemoglobin 94.5 L Carboxyhemoglobin Sodium Potassium Chloride Carbon Dioxide BUN Creatinine Glucose POC Glucose 110 H Hemoglobin A1c Calcium Phosphorus Magnesium AST ALT Alkaline Phosphatase Lactate Dehydrogenase C-Reactive Protein Total Protein Albumin Triglycerides Arterial Blood Glucose Arterial Blood Ionized Calcium Urine Creatinine Random Vancomycin Coronavirus (PCR) Crossmatch See Detail 03/25/21 03/25/21 03/26/21 23:29 Unknown 05:15 WBC 12.4 H 14.0 H RBC 2.49 L 2.83 L Hgb 6.8 L 7.6 L Hct 20.9 L 23.6 L MCH 27 L 27 L MCHC RDW 18.0 H 17.1 H Plt Count 107 L 116 L Lymph % (Auto) [place] # (Auto) Eos # (Auto) Seg Neutrophils % Eosinophils % (Manual) Basophils % (Manual) Seg Neutrophils # Seg Neutrophils # Man Lymphocytes # (Manual) Eosinophils # (Manual) Basophils # (Manual) Percent Retic PT INR Fibrinogen D-Dimer ABG pH POC ABG pCO2 POC ABG pO2 ABG pO2 ABG HCO3 ABG O2 Saturation ABG Base Excess ABG Hemoglobin ABG Oxyhemoglobin ABG Sodium ABG Potassium ABG Chloride ABG Glucose Oxyhemoglobin Carboxyhemoglobin Sodium Potassium Chloride Carbon Dioxide BUN Creatinine Glucose POC Glucose 113 H Hemoglobin A1c Calcium Phosphorus Magnesium AST ALT Alkaline Phosphatase Lactate Dehydrogenase C-Reactive Protein Total Protein Albumin Triglycerides Arterial Blood Glucose Arterial Blood Ionized Calcium Urine Creatinine Random Vancomycin Coronavirus (PCR) Crossmatch 03/26/21 03/26/21 03/26/21 05:15 05:35 09:50 WBC RBC Hgb Hct MCH MCHC RDW Plt Count Lymph % (Auto) [place] # (Auto) Eos # (Auto) Seg Neutrophils % Eosinophils % (Manual) Basophils % (Manual) Seg Neutrophils # Seg Neutrophils # Man Lymphocytes # (Manual) Eosinophils # (Manual) Basophils # (Manual) Percent Retic PT INR Fibrinogen D-Dimer ABG pH POC ABG pCO2 POC ABG pO2 ABG pO2 79.9 L ABG HCO3 ABG O2 Saturation ABG Base Excess ABG Hemoglobin 7.1 L ABG Oxyhemoglobin ABG Sodium ABG Potassium ABG Chloride ABG Glucose Oxyhemoglobin 94.9 L Carboxyhemoglobin Sodium Potassium 3.4 L Chloride Carbon Dioxide BUN 70 H Creatinine 7.3 H Glucose 142 H POC Glucose 130 H Hemoglobin A1c Calcium 8.2 L Phosphorus Magnesium AST ALT Alkaline Phosphatase Lactate Dehydrogenase C-Reactive Protein Total Protein Albumin Triglycerides 254 H Arterial Blood Glucose Arterial Blood Ionized Calcium Urine Creatinine Random Vancomycin Coronavirus (PCR) Crossmatch 03/26/21 03/26/21 03/26/21 11:45 16:36 23:33 WBC RBC Hgb Hct MCH MCHC RDW Plt Count Lymph % (Auto) [place] # (Auto) Eos # (Auto) Seg Neutrophils % Eosinophils % (Manual) Basophils % (Manual) Seg Neutrophils # Seg Neutrophils # Man Lymphocytes # (Manual) Eosinophils # (Manual) Basophils # (Manual) Percent Retic PT INR Fibrinogen D-Dimer ABG pH POC ABG pCO2 POC ABG pO2 ABG pO2 ABG HCO3 ABG O2 Saturation ABG Base Excess ABG Hemoglobin ABG Oxyhemoglobin ABG Sodium ABG Potassium ABG Chloride ABG Glucose Oxyhemoglobin Carboxyhemoglobin Sodium Potassium Chloride Carbon Dioxide BUN Creatinine Glucose POC Glucose 123 H 121 H 120 H Hemoglobin A1c Calcium Phosphorus Magnesium AST ALT Alkaline Phosphatase Lactate Dehydrogenase C-Reactive Protein Total Protein Albumin Triglycerides Arterial Blood Glucose Arterial Blood Ionized Calcium Urine Creatinine Random Vancomycin Coronavirus (PCR) Crossmatch 03/27/21 03/27/21 03/27/21 03:20 04:14 08:20 WBC 13.2 H RBC 2.82 L Hgb 7.9 L Hct 23.5 L MCH MCHC RDW 17.3 H Plt Count 125 L Lymph % (Auto) [place] # (Auto) Eos # (Auto) Seg Neutrophils % Eosinophils % (Manual) Basophils % (Manual) Seg Neutrophils # Seg Neutrophils # Man Lymphocytes # (Manual) Eosinophils # (Manual) Basophils # (Manual) Percent Retic PT INR Fibrinogen D-Dimer ABG pH POC ABG pCO2 50.0 H POC ABG pO2 58.3 L ABG pO2 ABG HCO3 ABG O2 Saturation ABG Base Excess ABG Hemoglobin 11.3 L ABG Oxyhemoglobin 88.5 L ABG Sodium ABG Potassium ABG Chloride ABG Glucose 132 H Oxyhemoglobin Carboxyhemoglobin 0.2 L Sodium Potassium Chloride Carbon Dioxide BUN Creatinine Glucose POC Glucose 119 H Hemoglobin A1c Calcium Phosphorus Magnesium AST ALT Alkaline Phosphatase Lactate Dehydrogenase C-Reactive Protein Total Protein Albumin Triglycerides Arterial Blood Glucose 132 H Arterial Blood Ionized Calcium Urine Creatinine Random Vancomycin Coronavirus (PCR) Crossmatch 03/27/21 03/27/21 03/27/21 08:20 11:39 17:32 WBC RBC Hgb Hct MCH MCHC RDW Plt Count Lymph % (Auto) [place] # (Auto) Eos # (Auto) Seg Neutrophils % Eosinophils % (Manual) Basophils % (Manual) Seg Neutrophils # Seg Neutrophils # Man Lymphocytes # (Manual) Eosinophils # (Manual) Basophils # (Manual) Percent Retic PT INR Fibrinogen D-Dimer ABG pH POC ABG pCO2 POC ABG pO2 ABG pO2 ABG HCO3 ABG O2 Saturation ABG Base Excess ABG Hemoglobin ABG Oxyhemoglobin ABG Sodium ABG Potassium ABG Chloride ABG Glucose Oxyhemoglobin Carboxyhemoglobin Sodium Potassium Chloride Carbon Dioxide BUN 57 H Creatinine 6.8 H Glucose 131 H POC Glucose 121 H 126 H Hemoglobin A1c Calcium Phosphorus Magnesium AST ALT Alkaline Phosphatase Lactate Dehydrogenase C-Reactive Protein Total Protein Albumin Triglycerides Arterial Blood Glucose Arterial Blood Ionized Calcium Urine Creatinine Random Vancomycin Coronavirus (PCR) Crossmatch 03/28/21 03/28/21 03/28/21 00:10 04:45 05:25 WBC RBC Hgb Hct MCH MCHC RDW Plt Count Lymph % (Auto) [place] # (Auto) Eos # (Auto) Seg Neutrophils % Eosinophils % (Manual) Basophils % (Manual) Seg Neutrophils # Seg Neutrophils # Man Lymphocytes # (Manual) Eosinophils # (Manual) Basophils # (Manual) Percent Retic PT INR Fibrinogen D-Dimer ABG pH POC ABG pCO2 POC ABG pO2 ABG pO2 57.6 L ABG HCO3 27.1 H ABG O2 Saturation 88.5 L ABG Base Excess ABG Hemoglobin ABG Oxyhemoglobin ABG Sodium ABG Potassium ABG Chloride ABG Glucose Oxyhemoglobin 86.6 L Carboxyhemoglobin Sodium Potassium Chloride Carbon Dioxide BUN Creatinine Glucose POC Glucose 113 H 121 H Hemoglobin A1c Calcium Phosphorus Magnesium AST ALT Alkaline Phosphatase Lactate Dehydrogenase C-Reactive Protein Total Protein Albumin Triglycerides Arterial Blood Glucose Arterial Blood Ionized Calcium Urine Creatinine Random Vancomycin Coronavirus (PCR) Crossmatch 03/28/21 03/28/21 03/28/21 09:37 09:37 11:48 WBC 16.3 H RBC 2.92 L Hgb 8.2 L Hct 24.8 L MCH MCHC RDW 17.5 H Plt Count Lymph % (Auto) 10.[address] [place] # (Auto) 0.9 H Eos # (Auto) 0.6 H Seg Neutrophils % 80.0 H Eosinophils % (Manual) Basophils % (Manual) Seg Neutrophils # 13.0 H Seg Neutrophils # Man Lymphocytes # (Manual) Eosinophils # (Manual) Basophils # (Manual) Percent Retic PT INR Fibrinogen D-Dimer ABG pH POC ABG pCO2 POC ABG pO2 ABG pO2 ABG HCO3 ABG O2 Saturation ABG Base Excess ABG Hemoglobin ABG Oxyhemoglobin ABG Sodium ABG Potassium ABG Chloride ABG Glucose Oxyhemoglobin Carboxyhemoglobin Sodium Potassium Chloride Carbon Dioxide BUN 61 H Creatinine 7.7 H Glucose 148 H POC Glucose 123 H Hemoglobin A1c Calcium Phosphorus Magnesium AST ALT Alkaline Phosphatase Lactate Dehydrogenase C-Reactive Protein Total Protein Albumin Triglycerides Arterial Blood Glucose Arterial Blood Ionized Calcium Urine Creatinine Random Vancomycin Coronavirus (PCR) Crossmatch 03/28/21 03/28/21 03/28/21 17:33 21:08 23:38 WBC RBC Hgb Hct MCH MCHC RDW Plt Count Lymph % (Auto) [place] # (Auto) Eos # (Auto) Seg Neutrophils % Eosinophils % (Manual) Basophils % (Manual) Seg Neutrophils # Seg Neutrophils # Man Lymphocytes # (Manual) Eosinophils # (Manual) Basophils # (Manual) Percent Retic PT INR Fibrinogen D-Dimer ABG pH POC ABG pCO2 POC ABG pO2 80.5 L ABG pO2 ABG HCO3 ABG O2 Saturation ABG Base Excess ABG Hemoglobin 9.5 L ABG Oxyhemoglobin ABG Sodium 133.3 L ABG Potassium ABG Chloride ABG Glucose 134 H Oxyhemoglobin Carboxyhemoglobin 0.3 L Sodium Potassium Chloride Carbon Dioxide BUN Creatinine Glucose POC Glucose 128 H 112 H Hemoglobin A1c Calcium Phosphorus Magnesium AST ALT Alkaline Phosphatase Lactate Dehydrogenase C-Reactive Protein Total Protein Albumin Triglycerides Arterial Blood Glucose 134 H Arterial Blood Ionized Calcium Urine Creatinine Random Vancomycin Coronavirus (PCR) Crossmatch 03/29/21 03/29/21 03/29/21 04:45 04:45 04:45 WBC 17.5 H RBC 3.15 L Hgb 8.8 L Hct 27.2 L MCH MCHC RDW 17.9 H Plt Count 132 L Lymph % (Auto) [place] # (Auto) Eos # (Auto) Seg Neutrophils % Eosinophils % (Manual) Basophils % (Manual) Seg Neutrophils # Seg Neutrophils # Man Lymphocytes # (Manual) Eosinophils # (Manual) Basophils # (Manual) Percent Retic PT INR Fibrinogen D-Dimer ABG pH POC ABG pCO2 POC ABG pO2 ABG pO2 ABG HCO3 ABG O2 Saturation ABG Base Excess ABG Hemoglobin ABG Oxyhemoglobin ABG Sodium ABG Potassium ABG Chloride ABG Glucose Oxyhemoglobin Carboxyhemoglobin Sodium Potassium Chloride 97.7 L Carbon Dioxide 21 L BUN 78 H Creatinine 9.5 H Glucose 132 H POC Glucose Hemoglobin A1c Calcium Phosphorus Magnesium AST ALT Alkaline Phosphatase Lactate Dehydrogenase C-Reactive Protein Total Protein Albumin 2.2 L Triglycerides 385 H Arterial Blood Glucose Arterial Blood Ionized Calcium Urine Creatinine Random Vancomycin Coronavirus (PCR) Crossmatch 03/29/21 03/29/21 03/29/21 11:35 16:50 21:06 WBC RBC Hgb Hct MCH MCHC RDW Plt Count Lymph % (Auto) [place] # (Auto) Eos # (Auto) Seg Neutrophils % Eosinophils % (Manual) Basophils % (Manual) Seg Neutrophils # Seg Neutrophils # Man Lymphocytes # (Manual) Eosinophils # (Manual) Basophils # (Manual) Percent Retic PT INR Fibrinogen D-Dimer ABG pH POC ABG pCO2 POC ABG pO2 ABG pO2 64.9 L ABG HCO3 ABG O2 Saturation ABG Base Excess -5.2 L ABG Hemoglobin ABG Oxyhemoglobin ABG Sodium ABG Potassium ABG Chloride ABG Glucose Oxyhemoglobin 85.1 L Carboxyhemoglobin Sodium Potassium Chloride Carbon Dioxide BUN Creatinine Glucose POC Glucose 148 H 133 H Hemoglobin A1c Calcium Phosphorus Magnesium AST ALT Alkaline Phosphatase Lactate Dehydrogenase C-Reactive Protein Total Protein Albumin Triglycerides Arterial Blood Glucose Arterial Blood Ionized Calcium Urine Creatinine Random Vancomycin Coronavirus (PCR) Crossmatch 03/29/21 03/30/21 03/30/21 Unknown 00:13 04:00 WBC 15.7 H RBC 3.18 L Hgb 8.6 L Hct 27.3 L MCH 27 L MCHC RDW 18.0 H Plt Count 86 L Lymph % (Auto) [place] # (Auto) Eos # (Auto) Seg Neutrophils % Eosinophils % (Manual) Basophils % (Manual) Seg Neutrophils # Seg Neutrophils # Man Lymphocytes # (Manual) Eosinophils # (Manual) Basophils # (Manual) Percent Retic PT INR Fibrinogen D-Dimer ABG pH 7.258 L POC ABG pCO2 POC ABG pO2 ABG pO2 ABG HCO3 ABG O2 Saturation ABG Base Excess -4.9 L ABG Hemoglobin 8.8 L ABG Oxyhemoglobin ABG Sodium ABG Potassium ABG Chloride ABG Glucose Oxyhemoglobin 93.9 L Carboxyhemoglobin Sodium Potassium Chloride Carbon Dioxide BUN Creatinine Glucose POC Glucose 129 H Hemoglobin A1c Calcium Phosphorus Magnesium AST ALT Alkaline Phosphatase Lactate Dehydrogenase C-Reactive Protein Total Protein Albumin Triglycerides Arterial Blood Glucose Arterial Blood Ionized Calcium Urine Creatinine Random Vancomycin Coronavirus (PCR) Crossmatch 03/30/21 03/30/21 03/30/21 04:00 04:00 06:02 WBC RBC Hgb Hct MCH MCHC RDW Plt Count Lymph % (Auto) [place] # (Auto) Eos # (Auto) Seg Neutrophils % Eosinophils % (Manual) Basophils % (Manual) Seg Neutrophils # Seg Neutrophils # Man Lymphocytes # (Manual) Eosinophils # (Manual) Basophils # (Manual) Percent Retic PT INR Fibrinogen D-Dimer 2607.12 H ABG pH POC ABG pCO2 POC ABG pO2 ABG pO2 ABG HCO3 ABG O2 Saturation ABG Base Excess ABG Hemoglobin ABG Oxyhemoglobin ABG Sodium ABG Potassium ABG Chloride ABG Glucose Oxyhemoglobin Carboxyhemoglobin Sodium 133 L Potassium 5.2 H D Chloride 91.5 L Carbon Dioxide 18 L BUN 101 H Creatinine 10.6 H Glucose 149 H POC Glucose 130 H Hemoglobin A1c Calcium Phosphorus 10.30 H Magnesium AST ALT Alkaline Phosphatase Lactate Dehydrogenase C-Reactive Protein 21.50 H Total Protein Albumin Triglycerides Arterial Blood Glucose Arterial Blood Ionized Calcium Urine Creatinine Random Vancomycin Coronavirus (PCR) Crossmatch 03/30/21 03/30/21 03/30/21 10:36 11:48 17:20 WBC RBC Hgb Hct MCH MCHC RDW Plt Count Lymph % (Auto) [place] # (Auto) Eos # (Auto) Seg Neutrophils % Eosinophils % (Manual) Basophils % (Manual) Seg Neutrophils # Seg Neutrophils # Man Lymphocytes # (Manual) Eosinophils # (Manual) Basophils # (Manual) Percent Retic PT INR Fibrinogen D-Dimer ABG pH 7.224 L POC ABG pCO2 49.1 H POC ABG pO2 61.5 L ABG pO2 ABG HCO3 ABG O2 Saturation ABG Base Excess ABG Hemoglobin 10.2 L ABG Oxyhemoglobin 86.2 L ABG Sodium 129.6 L ABG Potassium 5.4 H ABG Chloride 96.0 L ABG Glucose 161 H Oxyhemoglobin Carboxyhemoglobin Sodium Potassium Chloride Carbon Dioxide BUN Creatinine Glucose POC Glucose 163 H 130 H Hemoglobin A1c Calcium Phosphorus Magnesium AST ALT Alkaline Phosphatase Lactate Dehydrogenase C-Reactive Protein Total Protein Albumin Triglycerides Arterial Blood Glucose 161 H Arterial Blood Ionized Calcium 4.4 L Urine Creatinine Random Vancomycin Coronavirus (PCR) Crossmatch 03/30/21 03/31/21 03/31/21 23:49 00:28 05:20 WBC 17.3 H RBC 2.99 L Hgb 8.2 L Hct 25.3 L MCH 27 L MCHC RDW 18.3 H Plt Count 126 L Lymph % (Auto) [place] # (Auto) Eos # (Auto) Seg Neutrophils % Eosinophils % (Manual) Basophils % (Manual) Seg Neutrophils # Seg Neutrophils # Man Lymphocytes # (Manual) Eosinophils # (Manual) Basophils # (Manual) Percent Retic PT INR Fibrinogen D-Dimer ABG pH 7.249 L POC ABG pCO2 POC ABG pO2 77.7 L ABG pO2 ABG HCO3 ABG O2 Saturation ABG Base Excess ABG Hemoglobin 9.0 L ABG Oxyhemoglobin 92.9 L ABG Sodium 130.4 L ABG Potassium 4.7 H ABG Chloride ABG Glucose 166 H Oxyhemoglobin Carboxyhemoglobin 0.4 L Sodium Potassium Chloride Carbon Dioxide BUN Creatinine Glucose POC Glucose 143 H Hemoglobin A1c Calcium Phosphorus Magnesium AST ALT Alkaline Phosphatase Lactate Dehydrogenase C-Reactive Protein Total Protein Albumin Triglycerides Arterial Blood Glucose 166 H Arterial Blood Ionized Calcium 4.3 L Urine Creatinine Random Vancomycin Coronavirus (PCR) Crossmatch 03/31/21 03/31/21 03/31/21 05:20 06:18 09:44 WBC RBC Hgb Hct MCH MCHC RDW Plt Count Lymph % (Auto) [place] # (Auto) Eos # (Auto) Seg Neutrophils % Eosinophils % (Manual) Basophils % (Manual) Seg Neutrophils # Seg Neutrophils # Man Lymphocytes # (Manual) Eosinophils # (Manual) Basophils # (Manual) Percent Retic PT INR Fibrinogen D-Dimer ABG pH 7.247 L POC ABG pCO2 POC ABG pO2 ABG pO2 ABG HCO3 ABG O2 Saturation 94.4 L ABG Base Excess -5.1 L ABG Hemoglobin 8.2 L ABG Oxyhemoglobin ABG Sodium ABG Potassium ABG Chloride ABG Glucose Oxyhemoglobin 92.4 L Carboxyhemoglobin Sodium Potassium Chloride Carbon Dioxide BUN Creatinine Glucose POC Glucose 155 H Hemoglobin A1c Calcium Phosphorus 8.20 H D Magnesium AST ALT Alkaline Phosphatase Lactate Dehydrogenase C-Reactive Protein Total Protein Albumin Triglycerides Arterial Blood Glucose Arterial Blood Ionized Calcium Urine Creatinine Random Vancomycin Coronavirus (PCR) Crossmatch 03/31/21 03/31/21 03/31/21 09:49 09:55 09:55 WBC RBC Hgb Hct MCH MCHC RDW Plt Count Lymph % (Auto) [place] # (Auto) Eos # (Auto) Seg Neutrophils % Eosinophils % (Manual) Basophils % (Manual) Seg Neutrophils # Seg Neutrophils # Man Lymphocytes # (Manual) Eosinophils # (Manual) Basophils # (Manual) Percent Retic 4.52 H PT 16.5 H INR 1.20 H Fibrinogen D-Dimer ABG pH POC ABG pCO2 POC ABG pO2 ABG pO2 ABG HCO3 ABG O2 Saturation ABG Base Excess ABG Hemoglobin ABG Oxyhemoglobin ABG Sodium ABG Potassium ABG Chloride ABG Glucose Oxyhemoglobin Carboxyhemoglobin Sodium 133 L Potassium Chloride 92.8 L Carbon Dioxide 20 L BUN 87 H Creatinine 8.9 H Glucose 177 H POC Glucose Hemoglobin A1c Calcium 8.2 L Phosphorus Magnesium AST 169 H ALT Alkaline Phosphatase 187 H Lactate Dehydrogenase C-Reactive Protein Total Protein Albumin 2.3 L Triglycerides Arterial Blood Glucose Arterial Blood Ionized Calcium Urine Creatinine Random Vancomycin Coronavirus (PCR) Crossmatch 03/31/21 03/31/21 03/31/21 09:55 09:55 11:25 WBC RBC Hgb Hct MCH MCHC RDW Plt Count Lymph % (Auto) [place] # (Auto) Eos # (Auto) Seg Neutrophils % Eosinophils % (Manual) Basophils % (Manual) Seg Neutrophils # Seg Neutrophils # Man Lymphocytes # (Manual) Eosinophils # (Manual) Basophils # (Manual) Percent Retic PT INR Fibrinogen 491 H D-Dimer ABG pH POC ABG pCO2 POC ABG pO2 ABG pO2 ABG HCO3 ABG O2 Saturation ABG Base Excess ABG Hemoglobin ABG Oxyhemoglobin ABG Sodium ABG Potassium ABG Chloride ABG Glucose Oxyhemoglobin Carboxyhemoglobin Sodium Potassium Chloride Carbon Dioxide BUN Creatinine Glucose POC Glucose 178 H Hemoglobin A1c Calcium Phosphorus Magnesium AST ALT Alkaline Phosphatase Lactate Dehydrogenase 509 H C-Reactive Protein Total Protein Albumin Triglycerides Arterial Blood Glucose Arterial Blood Ionized Calcium Urine Creatinine Random Vancomycin Coronavirus (PCR) Crossmatch 03/31/21 03/31/21 03/31/21 12:30 17:40 21:00 WBC RBC Hgb Hct MCH MCHC RDW Plt Count Lymph % (Auto) [place] # (Auto) Eos # (Auto) Seg Neutrophils % Eosinophils % (Manual) Basophils % (Manual) Seg Neutrophils # Seg Neutrophils # Man Lymphocytes # (Manual) Eosinophils # (Manual) Basophils # (Manual) Percent Retic PT INR Fibrinogen D-Dimer ABG pH 7.235 L 7.216 L POC ABG pCO2 POC ABG pO2 ABG pO2 76.8 L 113.9 H ABG HCO3 ABG O2 Saturation 93.2 L ABG Base Excess -5.3 L -7.3 L ABG Hemoglobin 6.3 L 8.0 L ABG Oxyhemoglobin ABG Sodium ABG Potassium ABG Chloride ABG Glucose Oxyhemoglobin 91.1 L Carboxyhemoglobin Sodium Potassium Chloride Carbon Dioxide BUN Creatinine Glucose POC Glucose 245 H Hemoglobin A1c Calcium Phosphorus Magnesium AST ALT Alkaline Phosphatase Lactate Dehydrogenase C-Reactive Protein Total Protein Albumin Triglycerides Arterial Blood Glucose Arterial Blood Ionized Calcium Urine Creatinine Random Vancomycin Coronavirus (PCR) Crossmatch 04/01/21 04/01/21 04/01/21 00:11 05:09 08:25 WBC RBC Hgb Hct MCH MCHC RDW Plt Count Lymph % (Auto) [place] # (Auto) Eos # (Auto) Seg Neutrophils % Eosinophils % (Manual) Basophils % (Manual) Seg Neutrophils # Seg Neutrophils # Man Lymphocytes # (Manual) Eosinophils # (Manual) Basophils # (Manual) Percent Retic PT INR Fibrinogen D-Dimer ABG pH 7.225 L POC ABG pCO2 POC ABG pO2 ABG pO2 76.4 L ABG HCO3 ABG O2 Saturation 92.2 L ABG Base Excess -7.6 L ABG Hemoglobin 7.3 L ABG Oxyhemoglobin ABG Sodium ABG Potassium ABG Chloride ABG Glucose Oxyhemoglobin 90.2 L Carboxyhemoglobin Sodium Potassium Chloride Carbon Dioxide BUN Creatinine Glucose POC Glucose 209 H 173 H Hemoglobin A1c Calcium Phosphorus Magnesium AST ALT Alkaline Phosphatase Lactate Dehydrogenase C-Reactive Protein Total Protein Albumin Triglycerides Arterial Blood Glucose Arterial Blood Ionized Calcium Urine Creatinine Random Vancomycin Coronavirus (PCR) Crossmatch 04/01/21 04/01/21 04/01/21 12:01 12:05 17:55 WBC RBC Hgb Hct MCH MCHC RDW Plt Count Lymph % (Auto) [place] # (Auto) Eos # (Auto) Seg Neutrophils % Eosinophils % (Manual) Basophils % (Manual) Seg Neutrophils # Seg Neutrophils # Man Lymphocytes # (Manual) Eosinophils # (Manual) Basophils # (Manual) Percent Retic PT INR Fibrinogen D-Dimer ABG pH POC ABG pCO2 POC ABG pO2 ABG pO2 ABG HCO3 ABG O2 Saturation ABG Base Excess ABG Hemoglobin ABG Oxyhemoglobin ABG Sodium ABG Potassium ABG Chloride ABG Glucose Oxyhemoglobin Carboxyhemoglobin Sodium Potassium 5.9 H Chloride Carbon Dioxide BUN Creatinine Glucose POC Glucose 202 H 217 H Hemoglobin A1c Calcium Phosphorus Magnesium AST ALT Alkaline Phosphatase Lactate Dehydrogenase C-Reactive Protein Total Protein Albumin Triglycerides Arterial Blood Glucose Arterial Blood Ionized Calcium Urine Creatinine Random Vancomycin Coronavirus (PCR) Crossmatch 04/01/21 04/01/21 04/01/21 Unknown Unknown 23:59 WBC 27.2 H RBC 3.08 L Hgb 8.4 L Hct 26.0 L MCH 27 L MCHC RDW 18.5 H Plt Count Lymph % (Auto) [place] # (Auto) Eos # (Auto) Seg Neutrophils % Eosinophils % (Manual) Basophils % (Manual) Seg Neutrophils # Seg Neutrophils # Man Lymphocytes # (Manual) Eosinophils # (Manual) Basophils # (Manual) Percent Retic PT INR Fibrinogen D-Dimer ABG pH POC ABG pCO2 POC ABG pO2 ABG pO2 ABG HCO3 ABG O2 Saturation ABG Base Excess ABG Hemoglobin ABG Oxyhemoglobin ABG Sodium ABG Potassium ABG Chloride ABG Glucose Oxyhemoglobin Carboxyhemoglobin Sodium 132 L Potassium 6.6 H* D Chloride 91.3 L Carbon Dioxide 17 L BUN 104 H Creatinine 9.3 H Glucose 199 H POC Glucose 172 H Hemoglobin A1c Calcium 8.3 L Phosphorus Magnesium AST 236 H ALT 93 H Alkaline Phosphatase 191 H Lactate Dehydrogenase C-Reactive Protein Total Protein Albumin 2.4 L Triglycerides Arterial Blood Glucose Arterial Blood Ionized Calcium Urine Creatinine Random Vancomycin Coronavirus (PCR) Crossmatch 04/02/21 04/02/21 04/02/21 04:00 04:00 05:00 WBC 31.0 H RBC 2.93 L Hgb 8.0 L Hct 24.7 L MCH 27 L MCHC RDW 19.2 H Plt Count 131 L Lymph % (Auto) [place] # (Auto) Eos # (Auto) Seg Neutrophils % Eosinophils % (Manual) Basophils % (Manual) Seg Neutrophils # Seg Neutrophils # Man Lymphocytes # (Manual) Eosinophils # (Manual) Basophils # (Manual) Percent Retic PT 16.0 H INR 1.16 H Fibrinogen D-Dimer ABG pH POC ABG pCO2 POC ABG pO2 ABG pO2 ABG HCO3 ABG O2 Saturation ABG Base Excess ABG Hemoglobin ABG Oxyhemoglobin ABG Sodium ABG Potassium ABG Chloride ABG Glucose Oxyhemoglobin Carboxyhemoglobin Sodium 135 L Potassium 5.3 H Chloride 96.1 L Carbon Dioxide 18 L BUN 80 H Creatinine 6.8 H Glucose 174 H POC Glucose Hemoglobin A1c Calcium 7.7 L Phosphorus Magnesium AST 106 H ALT 60 H Alkaline Phosphatase Lactate Dehydrogenase C-Reactive Protein Total Protein 5.9 L Albumin 3.5 L Triglycerides 579 H Arterial Blood Glucose Arterial Blood Ionized Calcium Urine Creatinine Random Vancomycin Coronavirus (PCR) Crossmatch 04/02/21 04/02/21 04/02/21 05:09 08:55 11:06 WBC RBC Hgb Hct MCH MCHC RDW Plt Count Lymph % (Auto) [place] # (Auto) Eos # (Auto) Seg Neutrophils % Eosinophils % (Manual) Basophils % (Manual) Seg Neutrophils # Seg Neutrophils # Man Lymphocytes # (Manual) Eosinophils # (Manual) Basophils # (Manual) Percent Retic PT INR Fibrinogen D-Dimer ABG pH 7.188 L POC ABG pCO2 58.3 H POC ABG pO2 132.8 H ABG pO2 ABG HCO3 ABG O2 Saturation ABG Base Excess ABG Hemoglobin 8.4 L ABG Oxyhemoglobin ABG Sodium ABG Potassium 5.0 H ABG Chloride 97.0 L ABG Glucose 156 H Oxyhemoglobin Carboxyhemoglobin 0.4 L Sodium Potassium Chloride Carbon Dioxide BUN Creatinine Glucose POC Glucose 148 H 167 H Hemoglobin A1c Calcium Phosphorus Magnesium AST ALT Alkaline Phosphatase Lactate Dehydrogenase C-Reactive Protein Total Protein Albumin Triglycerides Arterial Blood Glucose 156 H Arterial Blood Ionized Calcium 4.2 L Urine Creatinine Random Vancomycin Coronavirus (PCR) Crossmatch 04/02/21 04/02/21 04/03/21 17:57 20:40 00:28 WBC RBC Hgb Hct MCH MCHC RDW Plt Count Lymph % (Auto) [place] # (Auto) Eos # (Auto) Seg Neutrophils % Eosinophils % (Manual) Basophils % (Manual) Seg Neutrophils # Seg Neutrophils # Man Lymphocytes # (Manual) Eosinophils # (Manual) Basophils # (Manual) Percent Retic PT INR Fibrinogen D-Dimer ABG pH POC ABG pCO2 POC ABG pO2 ABG pO2 111.9 H ABG HCO3 18.9 L ABG O2 Saturation ABG Base Excess -9.9 L ABG Hemoglobin ABG Oxyhemoglobin ABG Sodium ABG Potassium ABG Chloride ABG Glucose Oxyhemoglobin Carboxyhemoglobin Sodium Potassium Chloride Carbon Dioxide BUN Creatinine Glucose POC Glucose 205 H 217 H Hemoglobin A1c Calcium Phosphorus Magnesium AST ALT Alkaline Phosphatase Lactate Dehydrogenase C-Reactive Protein Total Protein Albumin Triglycerides Arterial Blood Glucose Arterial Blood Ionized Calcium Urine Creatinine Random Vancomycin Coronavirus (PCR) Crossmatch 04/03/21 04/03/2121 03:39 04:30 04:30 WBC 31.1 H RBC 2.78 L Hgb 8.0 L Hct 24.0 L MCH MCHC RDW 19.0 H Plt Count Lymph % (Auto) [place] # (Auto) Eos # (Auto) Seg Neutrophils % Eosinophils % (Manual) 27.0 H Basophils % (Manual) 2.0 H Seg Neutrophils # Seg Neutrophils # Man 13.7 H Lymphocytes # (Manual) 8.4 H Eosinophils # (Manual) 8.4 H Basophils # (Manual) 0.6 H Percent Retic PT INR Fibrinogen D-Dimer ABG pH POC ABG pCO2 POC ABG pO2 ABG pO2 ABG HCO3 ABG O2 Saturation ABG Base Excess ABG Hemoglobin ABG Oxyhemoglobin ABG Sodium ABG Potassium ABG Chloride ABG Glucose Oxyhemoglobin Carboxyhemoglobin Sodium 132 L Potassium 5.8 H Chloride 94.5 L Carbon Dioxide 16 L BUN 97 H Creatinine 7.7 H Glucose 230 H POC Glucose 201 H Hemoglobin A1c Calcium 7.6 L Phosphorus Magnesium AST 47 H ALT Alkaline Phosphatase 146 H Lactate Dehydrogenase C-Reactive Protein Total Protein 5.2 L Albumin 3.4 L Triglycerides Arterial Blood Glucose Arterial Blood Ionized Calcium Urine Creatinine Random Vancomycin Coronavirus (PCR) Crossmatch 04/03/21 04/03/21 04/03/21 04:30 08:31 11:29 WBC RBC Hgb Hct MCH MCHC RDW Plt Count Lymph % (Auto) [place] # (Auto) Eos # (Auto) Seg Neutrophils % Eosinophils % (Manual) Basophils % (Manual) Seg Neutrophils # Seg Neutrophils # Man Lymphocytes # (Manual) Eosinophils # (Manual) Basophils # (Manual) Percent Retic PT INR Fibrinogen D-Dimer ABG pH 7.195 L* POC ABG pCO2 POC ABG pO2 ABG pO2 102.6 H ABG HCO3 ABG O2 Saturation ABG Base Excess -7.2 L ABG Hemoglobin 8.0 L ABG Oxyhemoglobin ABG Sodium ABG Potassium ABG Chloride ABG Glucose Oxyhemoglobin 94.7 L Carboxyhemoglobin Sodium Potassium Chloride Carbon Dioxide BUN Creatinine Glucose POC Glucose 230 H Hemoglobin A1c Calcium Phosphorus 10.30 H Magnesium AST ALT Alkaline Phosphatase Lactate Dehydrogenase C-Reactive Protein Total Protein Albumin Triglycerides Arterial Blood Glucose Arterial Blood Ionized Calcium Urine Creatinine Random Vancomycin Coronavirus (PCR) Crossmatch 04/03/21 04/03/21 04/04/21 16:53 20:45 05:00 WBC 28.8 H RBC 2.64 L Hgb 8.7 L Hct 22.2 L MCH 33 H MCHC 39 H* RDW 18.6 H Plt Count Lymph % (Auto) [place] # (Auto) Eos # (Auto) Seg Neutrophils % Eosinophils % (Manual) Basophils % (Manual) Seg Neutrophils # Seg Neutrophils # Man Lymphocytes # (Manual) Eosinophils # (Manual) Basophils # (Manual) Percent Retic PT INR Fibrinogen D-Dimer ABG pH POC ABG pCO2 POC ABG pO2 ABG pO2 ABG HCO3 ABG O2 Saturation ABG Base Excess ABG Hemoglobin ABG Oxyhemoglobin ABG Sodium ABG Potassium ABG Chloride ABG Glucose Oxyhemoglobin 94.8 L Carboxyhemoglobin Sodium Potassium Chloride Carbon Dioxide BUN Creatinine Glucose POC Glucose 227 H Hemoglobin A1c Calcium Phosphorus Magnesium AST ALT Alkaline Phosphatase Lactate Dehydrogenase C-Reactive Protein Total Protein Albumin Triglycerides Arterial Blood Glucose Arterial Blood Ionized Calcium Urine Creatinine Random Vancomycin Coronavirus (PCR) Crossmatch 04/04/21 04/04/21 04/04/21 05:29 07:55 09:20 WBC RBC Hgb Hct MCH MCHC RDW Plt Count Lymph % (Auto) [place] # (Auto) Eos # (Auto) Seg Neutrophils % Eosinophils % (Manual) Basophils % (Manual) Seg Neutrophils # Seg Neutrophils # Man Lymphocytes # (Manual) Eosinophils # (Manual) Basophils # (Manual) Percent Retic PT INR Fibrinogen D-Dimer ABG pH POC ABG pCO2 POC ABG pO2 ABG pO2 ABG HCO3 ABG O2 Saturation ABG Base Excess ABG Hemoglobin ABG Oxyhemoglobin ABG Sodium ABG Potassium ABG Chloride ABG Glucose Oxyhemoglobin Carboxyhemoglobin Sodium 133 L Potassium Chloride 91.0 L Carbon Dioxide 20 L BUN 75 H Creatinine 4.7 H Glucose 184 H POC Glucose 133 H Hemoglobin A1c Calcium 7.3 L Phosphorus Magnesium AST < 5 L ALT < 5 L Alkaline Phosphatase 200 H Lactate Dehydrogenase C-Reactive Protein Total Protein 5.6 L Albumin 2.9 L Triglycerides Arterial Blood Glucose Arterial Blood Ionized Calcium Urine Creatinine Random Vancomycin Coronavirus (PCR) Crossmatch See Detail 04/04/21 04/04/21 04/04/21 12:01 14:06 17:05 WBC RBC Hgb Hct MCH MCHC RDW Plt Count Lymph % (Auto) [place] # (Auto) Eos # (Auto) Seg Neutrophils % Eosinophils % (Manual) Basophils % (Manual) Seg Neutrophils # Seg Neutrophils # Man Lymphocytes # (Manual) Eosinophils # (Manual) Basophils # (Manual) Percent Retic PT INR Fibrinogen D-Dimer ABG pH 7.162 L* POC ABG pCO2 POC ABG pO2 ABG pO2 91.3 H ABG HCO3 ABG O2 Saturation 94.8 L ABG Base Excess -4.0 L ABG Hemoglobin 7.6 L ABG Oxyhemoglobin ABG Sodium ABG Potassium ABG Chloride ABG Glucose Oxyhemoglobin 92.4 L Carboxyhemoglobin Sodium Potassium Chloride Carbon Dioxide BUN Creatinine Glucose POC Glucose 199 H 166 H Hemoglobin A1c Calcium Phosphorus Magnesium AST ALT Alkaline Phosphatase Lactate Dehydrogenase C-Reactive Protein Total Protein Albumin Triglycerides Arterial Blood Glucose Arterial Blood Ionized Calcium Urine Creatinine Random Vancomycin Coronavirus (PCR) Crossmatch 04/04/21 04/04/21 04/05/21 21:14 23:30 05:20 WBC RBC Hgb Hct MCH MCHC RDW Plt Count Lymph % (Auto) [place] # (Auto) Eos # (Auto) Seg Neutrophils % Eosinophils % (Manual) Basophils % (Manual) Seg Neutrophils # Seg Neutrophils # Man Lymphocytes # (Manual) Eosinophils # (Manual) Basophils # (Manual) Percent Retic PT INR Fibrinogen D-Dimer ABG pH 7.257 L POC ABG pCO2 POC ABG pO2 ABG pO2 73.8 L ABG HCO3 ABG O2 Saturation 91.6 L ABG Base Excess -2.7 L ABG Hemoglobin 8.6 L ABG Oxyhemoglobin ABG Sodium ABG Potassium ABG Chloride ABG Glucose Oxyhemoglobin 89.1 L Carboxyhemoglobin Sodium 131 L Potassium Chloride 91.2 L Carbon Dioxide 17 L BUN 85 H Creatinine 5.1 H Glucose 183 H POC Glucose 158 H Hemoglobin A1c Calcium 7.4 L Phosphorus Magnesium AST ALT Alkaline Phosphatase 190 H Lactate Dehydrogenase 394 H C-Reactive Protein Total Protein 5.8 L Albumin 2.7 L Triglycerides Arterial Blood Glucose Arterial Blood Ionized Calcium Urine Creatinine Random Vancomycin Coronavirus (PCR) Crossmatch 04/05/21 04/05/21 04/05/21 05:20 05:20 05:24 WBC 30.8 H RBC 2.83 L Hgb 8.4 L Hct 24.4 L MCH MCHC 35 H RDW 18.9 H Plt Count Lymph % (Auto) [place] # (Auto) Eos # (Auto) Seg Neutrophils % Eosinophils % (Manual) Basophils % (Manual) Seg Neutrophils # Seg Neutrophils # Man Lymphocytes # (Manual) Eosinophils # (Manual) Basophils # (Manual) Percent Retic PT INR Fibrinogen D-Dimer ABG pH POC ABG pCO2 POC ABG pO2 ABG pO2 ABG HCO3 ABG O2 Saturation ABG Base Excess ABG Hemoglobin ABG Oxyhemoglobin ABG Sodium ABG Potassium ABG Chloride ABG Glucose Oxyhemoglobin Carboxyhemoglobin Sodium Potassium Chloride Carbon Dioxide BUN Creatinine Glucose POC Glucose 162 H Hemoglobin A1c Calcium Phosphorus 9.40 H Magnesium AST ALT Alkaline Phosphatase Lactate Dehydrogenase C-Reactive Protein Total Protein Albumin Triglycerides Arterial Blood Glucose Arterial Blood Ionized Calcium Urine Creatinine Random Vancomycin Coronavirus (PCR) Crossmatch 04/05/21 04/05/21 11:31 12:23 WBC RBC Hgb Hct MCH MCHC RDW Plt Count Lymph % (Auto) [place] # (Auto) Eos # (Auto) Seg Neutrophils % Eosinophils % (Manual) Basophils % (Manual) Seg Neutrophils # Seg Neutrophils # Man Lymphocytes # (Manual) Eosinophils # (Manual) Basophils # (Manual) Percent Retic PT INR Fibrinogen D-Dimer ABG pH POC ABG pCO2 POC ABG pO2 ABG pO2 ABG HCO3 ABG O2 Saturation ABG Base Excess ABG Hemoglobin ABG Oxyhemoglobin ABG Sodium ABG Potassium ABG Chloride ABG Glucose Oxyhemoglobin Carboxyhemoglobin Sodium Potassium Chloride Carbon Dioxide BUN Creatinine Glucose POC Glucose 196 H 190 H Hemoglobin A1c Calcium Phosphorus Magnesium AST ALT Alkaline Phosphatase Lactate Dehydrogenase C-Reactive Protein Total Protein Albumin Triglycerides Arterial Blood Glucose Arterial Blood Ionized Calcium Urine Creatinine Random Vancomycin Coronavirus (PCR) Crossmatch Chest x-ray: image reviewed (stable bilateral infiltrates vs pulmonary edema) Allied health notes reviewed: nursing
[2021-04-05] MEDS: MIDAZOLAM 100 MG in SODIUM CHLORIDE 0.9% 80 ML IV SCH (14:44)
[2021-04-05] MEDS: PHENYLEPHRINE 100 MG in SODIUM CHLORIDE 0.9% 90 ML IV SCH (16:29)
[2021-04-05] MEDS: QUEtiapine 200 MG TAB PO SCH (21:19)
[2021-04-05] MEDS: fentaNYL 100 MCG/2 ML INJ IV PRN (21:32)
[2021-04-05 22:48] LABS: ABG PCO2 48.4 mm Hg; ABG PH 7.325 pH Units (7.350-7.450)
[2021-04-05 22:50] LABS: ABG Base Excess -1.3 mmol/L (-2.0-3.0); ABG HCO3 24.7 mmol/L (20.0-26.0); ABG PO2 65.6 mm Hg (80.0-90.0)
[2021-04-05 22:51] LABS: ABG Methemoglobin 0.4 % (0.0-1.5); ABG Oxygen Saturation 91.2 % (95.0-99.0)
[2021-04-06] MEDS: fentaNYL DRIP Premix 2,000 MCG/100 ML BAG IV SCH ×8 (00:08→23:56)
[2021-04-06] MEDS: INSULIN LISPRO 100 UNIT/ML SUB-Q SCH ×4 (00:30→18:10)
[2021-04-06] MEDS: IPRATROPIUM/ALBUTEROL SULFATE 3 ML AMPUL.NEB IH SCH ×5 (01:59→20:18)
[2021-04-06] MEDS: NORepinephrine/NS 8 MG-250 ML 8 MG/250 ML INFUS..BTL IV SCH ×2 (03:14→14:32)
[2021-04-06] MEDS: MIDAZOLAM 100 MG in SODIUM CHLORIDE 0.9% 80 ML IV SCH ×2 (05:53→23:56)
[2021-04-06] MEDS: methylPREDNISolone Sod Succinate 125 MG/2 ML INJ IV SCH ×3 (05:55→22:02)
[2021-04-06 06:43] LABS: Hematocrit 20.1 % (30.3-42.9); Hemoglobin 6.9 gm/dl (10.1-14.3); Mean Corpuscular HGB Conc 34 % (30-34); Mean Corpuscular Volume 84 fl (79-97); Platelet Count 212 K/mm3 (140-440); Red Blood Count 2.39 M/mm3 (3.65-5.03); Red Cell Distribution Width 18.7 % (13.2-15.2)
[2021-04-06 07:02] LABS: Albumin 2.5 g/dL (3.9-5); Blood Urea Nitrogen 74 mg/dL (7-17); Calcium 7.9 mg/dL (8.4-10.2); Hemolysis Index 14
[2021-04-06 07:03] LABS: BUN/Creatinine Ratio 17
[2021-04-06 07:15] LABS: Alanine Aminotransferase < 5 units/L (7-56)
[2021-04-06] MEDS: ACETAMINOPHEN 325 MG/10.15 ML ORAL LIQD UNIT DOSE FEEDTUBE PRN ×3 (07:38→21:53)
--- NOTE | 2021-04-06 08:05 | Hem/Onc Progress Note ---
Subjective Date of service: 04/06/21 Interval history: Heme progress note cpt: [id number] Dx: thrombocytopenia 31yo obese AA woman 300 lbs, with covid infection and ARF requiring hD tried plasma exchange x 2 days, has hqad hypotension, on pressors h/o asthma and intubation 2019 h/o crohns disease per notes DATA REVIEWED BELOW IMP: severe anemia Thrombocytopenia secondary to covid infection or medication doubt HUS or TTP, but tried a round of plasma exchange to see whether it helps high WBC is "reactive"-not heme malignancy REC/PLAN: RBC transfusion today off plasma exchange now OK for eliquis 2.5mg vt bid Laboratory Last Values WBC 26.7 K/mm3 (4.5-11.0) H 04/06/21 06:00 Hgb 6.9 gm/dl (10.1-14.3) L 04/06/21 06:00 Hct 20.1 % (30.3-42.9) L 04/06/21 06:00 Plt Count 212 K/mm3 (140-440) 04/06/21 06:00 PT 13.9 Sec. (12.2-14.9) 04/04/21 07:55 INR 0.96 (0.87-1.13) 04/04/21 07:55 APTT 28.9 Sec. (24.2-36.6) 04/04/21 07:55 Fibrinogen 248 mg/dl (211-480) 04/02/21 04:00 D-Dimer 2607.12 ng/mlDDU (0-234) H 03/30/21 04:00 Heparin Anti-Xa, Unfract TNR 03/22/21 08:20 Creatinine 4.3 mg/dL (0.6-1.2) H 04/06/21 06:00 Alkaline Phosphatase 185 units/L (35-129) H 04/06/21 06:00 Lactate Dehydrogenase 394 units/L (91-180) H 04/05/21 05:20 C-Reactive Protein 21.50 mg/dL (0.00-1.30) H 03/30/21 04:00 Heparin-induced Plt Ab Negative (Negative) 03/22/21 08:20 Objective - Constitutional Vitals: Last Vital Signs Temp 100 F H 04/06/21 04:00 Pulse 116 H 04/06/21 06:00 Resp 34 H 04/06/21 06:00 BP 127/55 04/06/21 06:00 Pulse Ox 100 04/06/21 06:00 - Labs Lab Results: Laboratory Results - last 24 hr 04/05/21 04/05/21 04/05/21 11:31 12:23 21:40 WBC RBC Hgb Hct MCV MCH MCHC RDW Plt Count ABG pH 7.325 L ABG pCO2 48.4 ABG pO2 65.6 L ABG HCO3 24.7 ABG O2 Saturation 91.2 L ABG O2 Content 8.5 ABG Base Excess -1.3 ABG Hemoglobin 6.7 L ABG Carboxyhemoglobin 2.0 ABG Methemoglobin 0.4 Oxyhemoglobin 89.0 L FiO2 50 Sodium Potassium Chloride Carbon Dioxide Anion Gap BUN Creatinine Estimated GFR BUN/Creatinine Ratio Glucose POC Glucose 196 H 190 H Calcium Phosphorus Magnesium Total Bilirubin AST ALT Alkaline Phosphatase Total Protein Albumin Albumin/Globulin Ratio 04/05/21 04/06/21 04/06/21 23:53 05:35 06:00 WBC RBC Hgb Hct MCV MCH MCHC RDW Plt Count ABG pH ABG pCO2 ABG pO2 ABG HCO3 ABG O2 Saturation ABG O2 Content ABG Base Excess ABG Hemoglobin ABG Carboxyhemoglobin ABG Methemoglobin Oxyhemoglobin FiO2 Sodium 132 L Potassium 4.1 Chloride 90.7 L Carbon Dioxide 21 L Anion Gap 24 BUN 74 H Creatinine 4.3 H Estimated GFR 15 BUN/Creatinine Ratio 17 Glucose 156 H POC Glucose 192 H 139 H Calcium 7.9 L Phosphorus 6.90 H D Magnesium 2.00 Total Bilirubin 0.80 AST < 5 L ALT < 5 L Alkaline Phosphatase 185 H Total Protein 5.7 L Albumin 2.5 L Albumin/Globulin Ratio 0.8 04/06/21 06:00 WBC 26.7 H RBC 2.39 L Hgb 6.9 L Hct 20.1 L MCV 84 MCH 29 MCHC 34 RDW 18.7 H Plt Count 212 ABG pH ABG pCO2 ABG pO2 ABG HCO3 ABG O2 Saturation ABG O2 Content ABG Base Excess ABG Hemoglobin ABG Carboxyhemoglobin ABG Methemoglobin Oxyhemoglobin FiO2 Sodium Potassium Chloride Carbon Dioxide Anion Gap BUN Creatinine Estimated GFR BUN/Creatinine Ratio Glucose POC Glucose Calcium Phosphorus Magnesium Total Bilirubin AST ALT Alkaline Phosphatase Total Protein Albumin Albumin/Globulin Ratio Medications & Allergies - Medications Allergies/Adverse Reactions: Allergies oxycodone HCl [From Percocet] Allergy (Severe, Verified 03/30/21 14:01) Swelling hydrocodone bitartrate [From Vicodin] Allergy (Verified 03/31/21 08:20) Swelling ALLERGY TO TYLENOL VS OXYCODONE ACTIVE ORDER REMOVED FROM [facility] SINCE UNABLE TO CONFIRM WITH FAMILY Home Medications: Home Medications Medication Instructions Recorded Confirmed Last Taken Type Chlorhexidine Mouthwash [Peridex] 15 ml MM BID #1 bottle 10/11/20 03/13/21 Unknown Rx Clindamycin [Clindamycin CAP] 300 mg PO Q8H #21 cap 10/11/20 03/13/21 Unknown Rx Naproxen 500 mg PO Q12H PRN #12 tablet 10/11/20 03/13/21 Unknown Rx Butalb/Acetamin/Caff 50-325-40 1 - 2 tab PO Q6HR PRN #15 tab 12/05/20 03/13/21 Unknown Rx [Fioricet 50-325-40] Famotidine [Pepcid] 20 mg PO BID #30 tablet 12/05/20 03/13/21 Unknown Rx Ketorolac [Toradol] 10 mg PO Q8H PRN #20 tablet 12/05/20 03/13/21 Unknown Rx Ondansetron [Zofran Odt] 4 mg PO Q6HR PRN #20 tab.rapdis 12/05/20 03/13/21 Unknown Rx Albuterol Sulfate [Proair 90 mcg IH Q4HR PRN #2 [email or web address] 01/01/21 03/13/21 Unknown Rx Respiclick] Mupirocin [Bactroban 2% OINT] 1 applic TP BID 7 Days #1 tube 01/01/21 03/13/21 Unknown Rx Triamcinolone Aceton 0.1% (Nf) 1 applic TP BID 14 Days #1 tube 01/01/21 03/13/21 Unknown Rx [Kenalog (NF)] predniSONE [Deltasone] 40 mg PO QDAY #8 tab 01/01/21 03/13/21 Unknown Rx Active Medications: Generic Name Dose Route Start Last Admin Trade Name Freq PRN Reason Stop Dose Admin Acetaminophen 650 mg 03/31/21 12:41 04/06/21 07:38 Acetaminophen 325 Mg/10.15 Ml Oral Liqd Unit Dose FEEDTUBE 650 mg Q6H PRN Administration TEMP >/=100.4 Albumin Human 25 gm 04/01/21 08:19 04/01/21 16:23 Albumin Human 25% (25 Gm/100 Ml) Inj IV 25 gm KARLOS PRN Administration Hypotension Albuterol 2.5 mg 03/19/21 00:53 Albuterol 2.5 Mg/3 Ml Nebu IH Q4HRT PRN Shortness Of Breath Albuterol/Ipratropium 1 ampul 03/19/21 08:00 04/06/21 01:59 Ipratropium/Albuterol Sulfate 3 Ml Ampul.Neb IH 1 ampul Q6HRT INESSA Administration Lipase/Protease/Amylase 1 each 03/15/21 11:42 Lipase 10,500/Protease 25,000/Amylase 43,750 (Units) Dr White FEEDTUBE PRN PRN For Clogged Feeding Tube Apixaban 2.5 mg 03/29/21 13:00 04/05/21 23:20 Apixaban 2.5 Mg Tab PO 2.5 mg Q12HR INESSA Administration Protocol Ascorbic Acid 500 mg 03/14/21 22:00 04/05/21 21:19 Ascorbic Acid 500 Mg Tab PO 500 mg BID INESSA Administration Calcium Acetate 1,334 mg 04/03/21 20:00 04/05/21 21:19 Calcium Acetate 667 Mg Cap FEEDTUBE 1,334 mg TID INESSA Administration Dextrose 50 ml 03/14/21 11:02 03/15/21 11:40 Dextrose 50% In Water (25gm) 50 Ml Syringe IV 50 ml Q30MIN PRN Administration Hypoglycemia Protocol Famotidine 10 mg 03/17/21 22:00 04/05/21 21:19 Famotidine 10 Mg Tab PO 10 mg BID INESSA Administration Fentanyl 50 mcg 03/15/21 10:43 04/05/21 21:32 Fentanyl 100 Mcg/2 Ml Inj IV 50 mcg Q10MIN PRN Administration ANALGESIA Hydrophilic Ointment 1 applic 03/14/21 17:50 Lip Therapy Vaseline TP Q2HR PRN Dry Lips Propofol 1,000 mg in 100 mls @ 4.123 mls/hr 03/15/21 11:00 04/06/21 07:25 Diprivan 10 Mg/Ml IV 25 mcg/kg/min TITR INESSA 20.616 mls/hr Administration Protocol 5 MCG/KG/MIN Fentanyl Citrate 2,000 mcg in 100 mls @ 6.872 mls/hr 03/15/21 11:00 04/06/21 07:30 Fentanyl Drip Premix IV 4 mcg/kg/hr TITR INESSA 27.488 mls/hr Administration Protocol 1 MCG/KG/HR Sodium Chloride 500 mls @ 1 mls/hr 03/16/21 17:19 Nacl 0.9% 500 Ml IV DIRECT PRN ARTERIAL LINE FLUSH NORepinephrine/NS 8 MG-250 ML 8 mg in 250 mls @ 3.75 mls/hr 03/23/21 11:00 04/06/21 07:42 Norepinephrine/Ns 8 Mg-250 Ml (Double Conc) IV 8 mcg/min TITRATE INESSA 15 mls/hr Titration Protocol 2 MCG/MIN Midazolam HCl 100 mg/ Sodium 100 mls @ 1 mls/hr 03/30/21 15:00 04/06/21 07:28 Chloride IV 5 mg/hr TITR INESSA 5 mls/hr Titration Protocol 1 MG/HR Vasopressin 20 unit/ Sodium 101 mls @ 9.09 mls/hr 03/30/21 20:00 04/06/21 02:17 Chloride IV 0.03 units/min TITR INESSA 9.09 mls/hr Infusion 0.03 UNITS/MIN Phenylephrine HCl 100 mg/ 100 mls @ 3 mls/hr 03/31/21 04:00 04/06/21 07:58 Sodium Chloride IV 0 mcg/min TITR INESSA 0 mls/hr Titration Protocol 50 MCG/MIN Sodium Chloride 100 mls @ 999 mls/hr 04/01/21 08:19 Nacl 0.9% IV KARLOS PRN Hypotension Sodium Bicarbonate 150 meq/ 1,150 mls @ 75 mls/hr 04/02/21 22:00 04/03/21 13:42 Dextrose IV 75 mls/hr DIRECT INESSA Administration Insulin Human Lispro 0 unit 03/14/21 12:00 04/06/21 05:55 Insulin Lispro 100 Unit/Ml SUB-Q Not Given Q6HR INESSA Protocol Lorazepam 1 mg 03/13/21 19:40 03/30/21 19:58 Lorazepam 2 Mg/Ml Vial IV 1 mg Q4H PRN Administration Anxiety Methylprednisolone Sodium Succinate 40 mg 04/05/21 14:00 04/06/21 05:55 Methylprednisolone Sod Succinate 125 Mg/2 Ml Inj IV 40 mg Q8HR INESSA Administration Midazolam HCl 2 mg 03/30/21 14:19 03/30/21 14:30 Midazolam 2 Mg/2 Ml Inj IV 2 mg Q10MIN PRN Administration Sedation Multi-Ingred Cream/Lotion/Oil/Oint 1 applic 03/14/21 17:50 04/02/21 14:31 Mineral Oil/Petrolatum, White Ophth Oint 3.5 Gm OU 1 applic Q4HR PRN Administration Dry Eye(s) Ondansetron HCl 4 mg 03/13/21 19:30 03/21/21 12:05 Ondansetron 4 Mg/2 Ml Inj IV 4 mg Q8H PRN Administration Nausea And Vomiting Quetiapine Fumarate 200 mg 04/05/21 22:00 04/05/21 21:19 Quetiapine 200 Mg Tab PO 200 mg BID INESSA Administration Senna/Docusate Sodium 1 tab 03/14/21 22:00 04/05/21 21:21 Sennosides/Docusate Sodium 8.6/50 Mg Tab FEEDTUBE Not Given BID INESSA Simple Syrup 15 ml 03/15/21 11:42 Simple Syrup 15 Ml FEEDTUBE PRN PRN Hypoglycemia Simple Syrup 30 ml 03/15/21 11:42 Simple Syrup 15 Ml FEEDTUBE PRN PRN Hypoglycemia Sodium Bicarbonate 325 mg 03/15/21 11:42 03/21/21 17:21 Sodium Bicarbonate 325 Mg Tab FEEDTUBE 325 mg PRN PRN Administration For Clogged Feeding Tube Sodium Chloride 10 ml 03/13/21 22:00 04/05/21 21:21 Sodium Chloride 0.9% 10 Ml Flush Syringe IV 10 ml BID INESSA Administration Sodium Chloride 10 ml 03/13/21 19:30 Sodium Chloride 0.9% 10 Ml Flush Syringe IV PRN PRN LINE FLUSH Zinc Sulfate 220 mg 03/14/21 22:00 04/05/21 21:19 Zinc Sulfate 220 Mg Cap PO 220 mg BID INESSA Administration
[2021-04-06] MEDS ORDERED: SODIUM CHLORIDE 0.9% 500 ML 500 ML IV SCH ×2 (09:00→13:00)
[2021-04-06] MEDS: VASOPRESSIN 20 UNIT in SODIUM CHLORIDE 0.9% 100 ML IV SCH ×2 (09:14→21:52)
--- NOTE | 2021-04-06 09:20 | Progress Note ---
Assessment and Plan Impression/Plan: #Acute kidney injury: dialysis dependent - s/p HD on 04/05, minimal uf due to low bp, HR - would ideally like UF removal today, but will hold off as tachycardic with soft BP on 3 pressors and clinically unstable for additional HD/UF removal - daily lytes - Assess daily for needs for additional sessions as hemodynamics - Strict input and output - Avoid nephrotoxins - Renally dose medications - Keep MAP > 65 #Hyperkalemia: stable today #Respiratory failure Covid 19 infection currently intubated UF as tolerated with HD, limited by hemodynamic instability #Hyperphosphatemia to be monitored Dialysis has been initiated #Hyponatremia: stable #Anemia--Hematology plans noted, plasma exchange noted #Overall prognosis remains poor, palliative care appropriate Subjective Date of service: 04/06/21 Principal diagnosis: Ac hypoxemic resp failure; AE-Asthma; SAI; Crohn's; COVID- 19; Pneumonia Interval history: Remains intubated, FiO2 50%, on 3 pressors. HR high in 120s with soft BP. Did have HD yesterday Objective - Exam Narrative Exam: General appearance: Intubated and sedated, obese Head: NC/AT Neck: Absent: masses or JVD, cervical LAD Respiratory: coarse mechanical sounds Heart: Present: S1 & S2, mildly tachycardic Extremities: pulses intact, pulses symmetrical; 3+ edema Peripheral Pulses: within normal limits General gastrointestinal: soft, non-tender Integumentary: dry Neurologic: sedated - Vital Signs Vital signs: Vital Signs - 12hr 04/05/21 04/05/21 04/05/21 21:30 21:32 22:00 Temperature Pulse Rate 127 H 118 H Pulse Rate [ Throughout] Respiratory 29 H 38 H 26 H Rate Respiratory Rate [ Throughout] Blood Pressure 123/60 131/71 O2 Sat by Pulse 97 96 Oximetry 04/05/21 04/05/21 04/05/21 22:07 22:30 23:01 Temperature Pulse Rate 118 H 126 H 118 H Pulse Rate [ Throughout] Respiratory 23 40 H 30 H Rate Respiratory Rate [ Throughout] Blood Pressure 120/66 138/70 112/47 O2 Sat by Pulse 98 91 95 Oximetry 04/05/21 04/05/21 04/06/21 23:30 23:37 00:00 Temperature 101.3 F H Pulse Rate 118 H 118 H 122 H Pulse Rate [ Throughout] Respiratory 40 H 39 H Rate Respiratory Rate [ Throughout] Blood Pressure 114/59 131/71 137/87 O2 Sat by Pulse 94 96 98 Oximetry 04/06/21 04/06/21 04/06/21 00:30 01:00 01:30 Temperature Pulse Rate 127 H 119 H 119 H Pulse Rate [ Throughout] Respiratory 45 H 42 H 42 H Rate Respiratory Rate [ Throughout] Blood Pressure 155/92 151/88 141/76 O2 Sat by Pulse 98 97 96 Oximetry 04/06/21 04/06/21 04/06/21 02:00 02:30 03:00 Temperature Pulse Rate 118 H 121 H 122 H Pulse Rate [ 104 H Throughout] Respiratory 27 H 39 H 39 H Rate Respiratory 30 H Rate [ Throughout] Blood Pressure 142/81 133/76 126/69 O2 Sat by Pulse 98 97 97 Oximetry 04/06/21 04/06/21 04/06/21 03:30 04:00 04:01 Temperature 100 F H Pulse Rate 123 H 127 H 130 H Pulse Rate [ Throughout] Respiratory 42 H 44 H Rate Respiratory Rate [ Throughout] Blood Pressure 107/52 126/69 152/88 O2 Sat by Pulse 98 98 97 Oximetry 04/06/21 04/06/21 04/06/21 04:30 05:00 05:30 Temperature Pulse Rate 139 H 135 H 125 H Pulse Rate [ Throughout] Respiratory 46 H 43 H 41 H Rate Respiratory Rate [ Throughout] Blood Pressure 147/66 161/109 141/87 O2 Sat by Pulse 99 97 98 Oximetry 04/06/21 04/06/21 04/06/21 06:00 06:30 07:00 Temperature Pulse Rate 116 H 112 H 119 H Pulse Rate [ Throughout] Respiratory 34 H 34 H 41 H Rate Respiratory Rate [ Throughout] Blood Pressure 127/55 121/64 147/76 O2 Sat by Pulse 100 99 99 Oximetry 04/06/21 04/06/21 04/06/21 07:30 08:00 08:05 Temperature 101.5 F H Pulse Rate 124 H 128 H 126 H Pulse Rate [ Throughout] Respiratory 44 H 41 H Rate Respiratory Rate [ Throughout] Blood Pressure 147/84 131/71 131/71 O2 Sat by Pulse 100 98 97 Oximetry 04/06/21 08:07 Temperature Pulse Rate Pulse Rate [ 126 H Throughout] Respiratory Rate Respiratory 32 H Rate [ Throughout] Blood Pressure O2 Sat by Pulse Oximetry - Lab 04/06/21 06:00 04/06/21 06:00 Most recent lab results ABG pH 7.325 pH Units (7.350-7.450) L 04/05/21 21:40 ABG pCO2 48.4 mm Hg 04/05/21 21:40 ABG pO2 65.6 mm Hg (80.0-90.0) L 04/05/21 21:40 ABG HCO3 24.7 mmol/L (20.0-26.0) 04/05/21 21:40 ABG O2 Saturation 91.2 % (95.0-99.0) L 04/05/21 21:40 Calcium 7.9 mg/dL (8.4-10.2) L 04/06/21 06:00 Phosphorus 6.90 mg/dL (2.5-4.5) H D 04/06/21 06:00 Magnesium 2.00 mg/dL (1.7-2.3) 04/06/21 06:00 Urine Creatinine 40.1 mg/dL (0.1-20.0) H 03/14/21 17:50 Urine Sodium 124 mmol/L 03/14/21 17:50 Medications & Allergies - Medications Allergies/Adverse Reactions: Allergies oxycodone HCl [From Percocet] Allergy (Severe, Verified 03/30/21 14:01) Swelling hydrocodone bitartrate [From Vicodin] Allergy (Verified 03/31/21 08:20) Swelling ALLERGY TO TYLENOL VS OXYCODONE ACTIVE ORDER REMOVED FROM [facility] SINCE UNABLE TO CONFIRM WITH FAMILY Home Medications: Home Medications Medication Instructions Recorded Confirmed Last Taken Type Chlorhexidine Mouthwash [Peridex] 15 ml MM BID #1 bottle 10/11/20 03/13/21 U nknown Rx Clindamycin [Clindamycin CAP] 300 mg PO Q8H #21 cap 10/11/20 03/13/21 Unknown Rx Naproxen 500 mg PO Q12H PRN #12 tablet 10/11/20 03/13/21 Unknown Rx Butalb/Acetamin/Caff 50-325-40 1 - 2 tab PO Q6HR PRN #15 tab 12/05/20 03/13/21 Unknown Rx [Fioricet 50-325-40] Famotidine [Pepcid] 20 mg PO BID #30 tablet 12/05/20 03/13/21 Unknown Rx Ketorolac [Toradol] 10 mg PO Q8H PRN #20 tablet 12/05/20 03/13/21 Unknown Rx Ondansetron [Zofran Odt] 4 mg PO Q6HR PRN #20 tab.rapdis 12/05/20 03/13/21 Unknown Rx Albuterol Sulfate [Proair 90 mcg IH Q4HR PRN #2 aer.[email or web address] 01/01/21 03/13/21 Unknown Rx Respiclick] Mupirocin [Bactroban 2% OINT] 1 applic TP BID 7 Days #1 tube 01/01/21 03/13/21 Unknown Rx Triamcinolone Aceton 0.1% (Nf) 1 applic TP BID 14 Days #1 tube 01/01/21 03/13/21 Unknown Rx [Kenalog (NF)] predniSONE [Deltasone] 40 mg PO QDAY #8 tab 01/01/21 03/13/21 Unknown Rx Active Medications: Generic Name Dose Route Start Last Admin Trade Name Freq PRN Reason Stop Dose Admin Acetaminophen 650 mg 03/31/21 12:41 04/06/21 07:38 Acetaminophen 325 Mg/10.15 Ml Oral Liqd Unit Dose FEEDTUBE 650 mg Q6H PRN Administration TEMP >/=100.4 Albumin Human 25 gm 04/01/21 08:19 04/01/21 16:23 Albumin Human 25% (25 Gm/100 Ml) Inj IV 25 gm KARLOS PRN Administration Hypotension Albuterol 2.5 mg 03/19/21 00:53 Albuterol 2.5 Mg/3 Ml Nebu IH Q4HRT PRN Shortness Of Breath Albuterol/Ipratropium 1 ampul 03/19/21 08:00 04/06/21 08:07 Ipratropium/Albuterol Sulfate 3 Ml Ampul.Neb IH 1 ampul Q6HRT INESSA Administration Lipase/Protease/Amylase 1 each 03/15/21 11:42 Lipase 10,500/Protease 25,000/Amylase 43,750 (Units) Dr White FEEDTUBE PRN PRN For Clogged Feeding Tube Apixaban 2.5 mg 03/29/21 13:00 04/05/21 23:20 Apixaban 2.5 Mg Tab PO 2.5 mg Q12HR INESSA Administration Protocol Ascorbic Acid 500 mg 03/14/21 22:00 04/05/21 21:19 Ascorbic Acid 500 Mg Tab PO 500 mg BID INESSA Administration Calcium Acetate 1,334 mg 04/03/21 20:00 04/05/21 21:19 Calcium Acetate 667 Mg Cap FEEDTUBE 1,334 mg TID INESSA Administration Dextrose 50 ml 03/14/21 11:02 03/15/21 11:40 Dextrose 50% In Water (25gm) 50 Ml Syringe IV 50 ml Q30MIN PRN Administration Hypoglycemia Protocol Famotidine 10 mg 03/17/21 22:00 04/05/21 21:19 Famotidine 10 Mg Tab PO 10 mg BID INESSA Administration Fentanyl 50 mcg 03/15/21 10:43 04/05/21 21:32 Fentanyl 100 Mcg/2 Ml Inj IV 50 mcg Q10MIN PRN Administration ANALGESIA Hydrophilic Ointment 1 applic 03/14/21 17:50 Lip Therapy Vaseline TP Q2HR PRN Dry Lips Propofol 1,000 mg in 100 mls @ 4.123 mls/hr 03/15/21 11:00 04/06/21 07:25 Diprivan 10 Mg/Ml IV 25 mcg/kg/min TITR INESSA 20.616 mls/hr Administration Protocol 5 MCG/KG/MIN Fentanyl Citrate 2,000 mcg in 100 mls @ 6.872 mls/hr 03/15/21 11:00 04/06/21 07:30 Fentanyl Drip Premix IV 4 mcg/kg/hr TITR INESSA 27.488 mls/hr Administration Protocol 1 MCG/KG/HR Sodium Chloride 500 mls @ 1 mls/hr 03/16/21 17:19 Nacl 0.9% 500 Ml IV DIRECT PRN ARTERIAL LINE FLUSH NORepinephrine/NS 8 MG-250 ML 8 mg in 250 mls @ 3.75 mls/hr 03/23/21 11:00 04/06/21 07:42 Norepinephrine/Ns 8 Mg-250 Ml (Double Conc) IV 8 mcg/min TITRATE INSESA 15 mls/hr Titration Protocol 2 MCG/MIN Midazolam HCl 100 mg/ Sodium 100 mls @ 1 mls/hr 03/30/21 15:00 04/06/21 07:28 Chloride IV 5 mg/hr TITR INESSA 5 mls/hr Titration Protocol 1 MG/HR Vasopressin 20 unit/ Sodium 101 mls @ 9.09 mls/hr 03/30/21 20:00 04/06/21 09:14 Chloride IV 0.03 units/min TITR INESSA 9.09 mls/hr Administration 0.03 UNITS/MIN Phenylephrine HCl 100 mg/ 100 mls @ 3 mls/hr 03/31/21 04:00 04/06/21 07:58 Sodium Chloride IV 0 mcg/min TITR INESSA 0 mls/hr Titration Protocol 50 MCG/MIN Sodium Chloride 100 mls @ 999 mls/hr 04/01/21 08:19 Nacl 0.9% IV KARLOS PRN Hypotension Sodium Bicarbonate 150 meq/ 1,150 mls @ 75 mls/hr 04/02/21 22:00 04/03/21 13:42 Dextrose IV 75 mls/hr DIRECT INESSA Administration Sodium Chloride 500 mls @ 0 mls/hr 04/06/21 09:00 Nacl 0.9% 500 Ml IV 04/06/21 18:00 ONCE@0900 INESSA As Directed Insulin Human Lispro 0 unit 03/14/21 12:00 04/06/21 05:55 Insulin Lispro 100 Unit/Ml SUB-Q Not Given Q6HR [facility] Protocol Lorazepam 1 mg 03/13/21 19:40 03/30/21 19:58 Lorazepam 2 Mg/Ml Vial IV 1 mg Q4H PRN Administration Anxiety Methylprednisolone Sodium Succinate 40 mg 04/05/21 14:00 04/06/21 05:55 Methylprednisolone Sod Succinate 125 Mg/2 Ml Inj IV 40 mg Q8HR INESSA Administration Midazolam HCl 2 mg 03/30/21 14:19 03/30/21 14:30 Midazolam 2 Mg/2 Ml Inj IV 2 mg Q10MIN PRN Administration Sedation Multi-Ingred Cream/Lotion/Oil/Oint 1 applic 03/14/21 17:50 04/02/21 14:31 Mineral Oil/Petrolatum, White Ophth Oint 3.5 Gm OU 1 applic Q4HR PRN Administration Dry Eye(s) Ondansetron HCl 4 mg 03/13/21 19:30 03/21/21 12:05 Ondansetron 4 Mg/2 Ml Inj IV 4 mg Q8H PRN Administration Nausea And Vomiting Quetiapine Fumarate 200 mg 04/05/21 22:00 04/05/21 21:19 Quetiapine 200 Mg Tab PO 200 mg BID INESSA Administration Senna/Docusate Sodium 1 tab 03/14/21 22:00 04/05/21 21:21 Sennosides/Docusate Sodium 8.6/50 Mg Tab FEEDTUBE Not Given BID INESSA Simple Syrup 15 ml 03/15/21 11:42 Simple Syrup 15 Ml FEEDTUBE PRN PRN Hypoglycemia Simple Syrup 30 ml 03/15/21 11:42 Simple Syrup 15 Ml FEEDTUBE PRN PRN Hypoglycemia Sodium Bicarbonate 325 mg 03/15/21 11:42 03/21/21 17:21 Sodium Bicarbonate 325 Mg Tab FEEDTUBE 325 mg PRN PRN Administration For Clogged Feeding Tube Sodium Chloride 10 ml 03/13/21 22:00 04/05/21 21:21 Sodium Chloride 0.9% 10 Ml Flush Syringe IV 10 ml BID INESSA Administration Sodium Chloride 10 ml 03/13/21 19:30 Sodium Chloride 0.9% 10 Ml Flush Syringe IV PRN PRN LINE FLUSH Zinc Sulfate 220 mg 03/14/21 22:00 04/05/21 21:19 Zinc Sulfate 220 Mg Cap PO 220 mg BID INESSA Administration
[2021-04-06] MEDS: CALCIUM ACETATE 667 MG CAP FEEDTUBE SCH ×3 (09:37→20:01)
[2021-04-06] MEDS: FAMOTIDINE 10 MG TAB PO SCH ×2 (09:38→22:02)
[2021-04-06] MEDS: ZINC SULFATE 220 MG CAP PO SCH ×2 (09:38→22:02)
[2021-04-06] MEDS: APIXABAN 2.5 MG TAB PO SCH ×2 (09:38→22:00)
[2021-04-06] MEDS: ASCORBIC ACID 500 MG TAB PO SCH ×2 (09:38→22:03)
[2021-04-06] MEDS: QUEtiapine 200 MG TAB PO SCH (09:38)
[2021-04-06] MEDS: SENNOSIDES/DOCUSATE SODIUM 8.6/50 MG TAB FEEDTUBE SCH ×2 (09:57→22:00)
--- NOTE | 2021-04-06 11:37 | Progress Note ---
Assessment and Plan Acute hypoxemic respiratory failure Acute asthma exacerbation Morbid obesity Crohn's disease Metabolic acidosis Acute kidney injury Coronavirus infection Pneumonia (CAP) Oropharyngeal dysphagia Obesity, if not mentioned above ([place] will need a tracheostomy once more stable) - reduce Versed drip and if WOB increases will try Dilaudid 1mg IV q4h prn to see if pain playing a significant role here - will repeat lower extremity dopplers re: VTE related fevers - continue empiric Apixiban coverage for possible VTE as unable to get CTA - increased Seroquel to 300 mg p.o. bid - follow QTc 440 today and will follow prn - reduced peep to 8 - repeat ABG at 9 pm tonight and address - nephrology input appreciated; HD/UF for toxin and volume clearance - continue care as below otherwise; - continue to wean vasopressors for target MAP > 65 mmHg - nephrology input appreciated; HD/UF for toxin and volume clearance - continue Daily SAT and SBT assessment as tolerated - continue to wean supplemental oxygen for target O2 sat's > 90% acutely - VAP bundle addressed - continue lung protective strategies - continue bronchodilators with pulmonary hygiene per RT - wean per pulmonary driven protocols otherwise - continue accuchecks with glycemic control per SSI (While critically ill target blood glucose of 140-180 mg/dL; avoid hypoglycemia) - sedation prn for target RASS 0 to -1 - avoid nephrotoxins, renally dose all medications - continue to avoid benzodiazepine's, reduce the possibility of delirium - AB's per ID rec's (s/p Cefepime) - prn analgesia per CPOT score - Maintenance of sleep-wake cycle, avoid delirium - continue enteral nutritional support at goal rate as tolerated - G.I. & VTE prophylaxis - PT/OT/ROM exercises - continue mobility protocols for pressure ulcer prophylaxis - Monitor hemodynamics closely - continue other care per attending / other consultants - discharge planning ongoing concurrently COVID SPECIFIC INTERVENTIONS - Isolation discontinued - s/p Actemra - Remdesivir as per ID/Pulmonary developed protocols (not a candidate) - continue systemic steroids for severe COVID-19 infection empirically - repeat COVID tests result negative - zinc and vitamin C supplementation - Monitor inflammatory markers per facility protocol - ferritin, Ddimer, CRP - therapeutic anticoagulation per system Protocol based on d-dimer and clinical considerations (VTE prophylaxis) - Continue contact and airborne isolation .... Re-evaluate in am & prn CONDITION: CRITICAL PROGNOSIS: GUARDED CODE STATUS: FULL CODE The high probability of a clinically significant, sudden or life-threatening deterioration of the [respiratory, cardiovascular, renal & neurologic] system(s) required my full and direct attention, intervention and personal management. The aggregate critical care time was [35] minutes without overlap. Time includes spent on; [x] Data Review and interpretation [x] Patient assessment and monitoring of vital signs [x] Documentation [x] Medication orders and management Subjective Date of service: 04/06/21 Principal diagnosis: Ac hypoxemic resp failure; AE-Asthma; SAI; Crohn's; COVID- 19; Pneumonia Interval history: Patient is seen today for: Acute hypoxemic respiratory failure; AE-Asthma; SAI; Crohn's disease; COVID-19 infection; Pneumonia (CAP) Seen and examined at bedside; 24hour events reviewed; nursing and respiratory care staff consulted; no adverse overnight events reported to me; resting in bed; remains on MVS; off Propofol now but agitation / work of breathing is increased; no emesis or overt aspiration; still with fevers up mto 101.3F now off arctic sun Objective Vital Signs - 12hr 04/05/21 04/06/21 04/06/21 23:37 00:00 00:30 Temperature 101.3 F H Pulse Rate 118 H 122 H 127 H Pulse Rate [ Throughout] Respiratory 39 H 45 H Rate Respiratory Rate [ Throughout] Blood Pressure 131/71 137/87 155/92 O2 Sat by Pulse 96 98 98 Oximetry 04/06/21 04/06/21 04/06/21 01:00 01:30 02:00 Temperature Pulse Rate 119 H 119 H 118 H Pulse Rate [ 104 H Throughout] Respiratory 42 H 42 H 27 H Rate Respiratory 30 H Rate [ Throughout] Blood Pressure 151/88 141/76 142/81 O2 Sat by Pulse 97 96 98 Oximetry 04/06/21 04/06/21 04/06/21 02:30 03:00 03:30 Temperature Pulse Rate 121 H 122 H 123 H Pulse Rate [ Throughout] Respiratory 39 H 39 H 42 H Rate Respiratory Rate [ Throughout] Blood Pressure 133/76 126/69 107/52 O2 Sat by Pulse 97 97 98 Oximetry 04/06/21 04/06/21 04/06/21 04:00 04:01 04:30 Temperature 100 F H Pulse Rate 127 H 130 H 139 H Pulse Rate [ Throughout] Respiratory 44 H 46 H Rate Respiratory Rate [ Throughout] Blood Pressure 126/69 152/88 147/66 O2 Sat by Pulse 98 97 99 Oximetry 04/06/21 04/06/21 04/06/21 05:00 05:30 06:00 Temperature Pulse Rate 135 H 125 H 116 H Pulse Rate [ Throughout] Respiratory 43 H 41 H 34 H Rate Respiratory Rate [ Throughout] Blood Pressure 161/109 141/87 127/55 O2 Sat by Pulse 97 98 100 Oximetry 04/06/21 04/06/21 04/06/21 06:30 07:00 07:30 Temperature Pulse Rate 112 H 119 H 124 H Pulse Rate [ Throughout] Respiratory 34 H 41 H 44 H Rate Respiratory Rate [ Throughout] Blood Pressure 121/64 147/76 147/84 O2 Sat by Pulse 99 99 100 Oximetry 04/06/21 04/06/21 04/06/21 08:00 08:05 08:07 Temperature 101.5 F H Pulse Rate 128 H 126 H Pulse Rate [ 126 H Throughout] Respiratory 41 H Rate Respiratory 32 H Rate [ Throughout] Blood Pressure 131/71 131/71 O2 Sat by Pulse 98 97 Oximetry 04/06/21 04/06/21 04/06/21 08:30 09:01 09:30 Temperature Pulse Rate 122 H 122 H 121 H Pulse Rate [ Throughout] Respiratory 27 H 36 H 38 H Rate Respiratory Rate [ Throughout] Blood Pressure 130/52 119/32 107/33 O2 Sat by Pulse 98 95 96 Oximetry 04/06/21 04/06/21 04/06/21 10:01 10:30 10:41 Temperature Pulse Rate 124 H 118 H 124 H Pulse Rate [ Throughout] Respiratory 39 H 34 H 40 H Rate Respiratory Rate [ Throughout] Blood Pressure 117/21 107/35 107/35 O2 Sat by Pulse 96 96 95 Oximetry 04/06/21 04/06/21 04/06/21 10:51 11:00 11:11 Temperature Pulse Rate 119 H 118 H 119 H Pulse Rate [ Throughout] Respiratory 37 H 36 H 38 H Rate Respiratory Rate [ Throughout] Blood Pressure 112/39 119/40 119/40 O2 Sat by Pulse 96 97 96 Oximetry 04/06/21 04/06/21 04/06/21 11:18 11:21 11:30 Temperature 101.3 F H Pulse Rate 122 H 126 H Pulse Rate [ Throughout] Respiratory 42 H 44 H Rate Respiratory Rate [ Throughout] Blood Pressure 104/44 107/59 O2 Sat by Pulse 97 94 Oximetry Constitutional: appears uncomfortable, other (morbidly obese female with mild ventilator dyssynchrony) Eyes: non-icteric, other (scleral erythema / bleeding is improving) ENT: oropharynx moist, other (ETT 25 cm BALJINDER) Neck: supple, no lymphadenopathy, no JVD, other (large circumference) Effort: mildly labored Ascultation: Bilateral: diminished breath sounds, rhonchi Percussion: Bilateral: not dull Cardiovascular: regular rate and rhythm Gastrointestinal: normoactive bowel sounds, soft, non-tender, non-distended (protuberant) Integumentary: rash ( ), other Extremities: no cyanosis, pulses normal, no ischemia or petechiae, edema (1+) Neurologic: non-focal exam (grossly), pupils equal and round, CN II-XII normal, motor strength normal and, other (sedated) Psychiatric: other (unasble to assess) CBC and BMP: 04/06/21 06:00 04/06/21 06:00 ABG, PT/INR, D-dimer: ABG ABG pH 7.325 pH Units (7.350-7.450) L 04/05/21 21:40 POC ABG pCO2 Cancelled 04/03/21 20:45 ABG pCO2 48.4 mm Hg 04/05/21 21:40 POC ABG pO2 Cancelled 04/03/21 20:45 ABG pO2 65.6 mm Hg (80.0-90.0) L 04/05/21 21:40 POC ABG HCO3 Cancelled 04/03/21 20:45 ABG O2 Saturation 91.2 % (95.0-99.0) L 04/05/21 21:40 PT/INR, D-dimer PT 13.9 Sec. (12.2-14.9) 04/04/21 07:55 INR 0.96 (0.87-1.13) 04/04/21 07:55 D-Dimer 2607.12 ng/mlDDU (0-234) H 03/30/21 04:00 Abnormal lab findings: Abnormal Labs 03/13/21 03/13/21 03/13/21 13:26 13:26 15:40 WBC RBC Hgb Hct MCH 27 L MCHC RDW 17.0 H Plt Count Lymph % (Auto) [place] # (Auto) Eos # (Auto) Seg Neutrophils % Eosinophils % (Manual) Basophils % (Manual) Seg Neutrophils # Seg Neutrophils # Man Lymphocytes # (Manual) Eosinophils # (Manual) Basophils # (Manual) Percent Retic PT INR Fibrinogen D-Dimer ABG pH POC ABG pCO2 POC ABG pO2 ABG pO2 ABG HCO3 ABG O2 Saturation ABG Base Excess ABG Hemoglobin ABG Oxyhemoglobin ABG Sodium ABG Potassium ABG Chloride ABG Glucose Oxyhemoglobin Carboxyhemoglobin Sodium 136 L Potassium Chloride Carbon Dioxide BUN Creatinine Glucose 125 H 130 H POC Glucose Hemoglobin A1c Calcium Phosphorus Magnesium AST ALT Alkaline Phosphatase Lactate Dehydrogenase 235 H C-Reactive Protein 4.30 H Total Protein Albumin Triglycerides Arterial Blood Glucose Arterial Blood Ionized Calcium Urine Creatinine Random Vancomycin Coronavirus (PCR) Crossmatch 03/13/21 03/14/21 03/14/21 21:33 03:35 06:21 WBC 20.0 H RBC Hgb Hct MCH 27 L MCHC RDW 17.5 H Plt Count Lymph % (Auto) 7.8 L [place] # (Auto) 1.3 H Eos # (Auto) Seg Neutrophils % 85.4 H Eosinophils % (Manual) Basophils % (Manual) Seg Neutrophils # 17.1 H Seg Neutrophils # Man Lymphocytes # (Manual) Eosinophils # (Manual) Basophils # (Manual) Percent Retic PT INR Fibrinogen D-Dimer ABG pH 7.323 L 7.234 L POC ABG pCO2 POC ABG pO2 ABG pO2 69.8 L ABG HCO3 ABG O2 Saturation 92.9 L 94.9 L ABG Base Excess -3.3 L -5.4 L ABG Hemoglobin ABG Oxyhemoglobin ABG Sodium ABG Potassium ABG Chloride ABG Glucose Oxyhemoglobin 91.2 L 93.2 L Carboxyhemoglobin Sodium Potassium Chloride Carbon Dioxide BUN Creatinine Glucose POC Glucose Hemoglobin A1c Calcium Phosphorus Magnesium AST ALT Alkaline Phosphatase Lactate Dehydrogenase C-Reactive Protein Total Protein Albumin Triglycerides Arterial Blood Glucose Arterial Blood Ionized Calcium Urine Creatinine Random Vancomycin Coronavirus (PCR) Crossmatch 03/14/21 03/14/21 03/14/21 06:21 07:47 11:21 WBC RBC Hgb Hct MCH MCHC RDW Plt Count Lymph % (Auto) [place] # (Auto) Eos # (Auto) Seg Neutrophils % Eosinophils % (Manual) Basophils % (Manual) Seg Neutrophils # Seg Neutrophils # Man Lymphocytes # (Manual) Eosinophils # (Manual) Basophils # (Manual) Percent Retic PT INR Fibrinogen D-Dimer ABG pH POC ABG pCO2 POC ABG pO2 ABG pO2 ABG HCO3 ABG O2 Saturation ABG Base Excess ABG Hemoglobin ABG Oxyhemoglobin ABG Sodium ABG Potassium ABG Chloride ABG Glucose Oxyhemoglobin Carboxyhemoglobin Sodium 136 L 136 L Potassium 6.2 H* D 5.4 H Chloride Carbon Dioxide 21 L 21 L BUN Creatinine 1.5 H D 1.8 H Glucose 144 H 141 H POC Glucose 147 H Hemoglobin A1c Calcium Phosphorus Magnesium AST ALT Alkaline Phosphatase Lactate Dehydrogenase C-Reactive Protein Total Protein 8.7 H 9.2 H Albumin 3.8 L Triglycerides Arterial Blood Glucose Arterial Blood Ionized Calcium Urine Creatinine Random Vancomycin Coronavirus (PCR) Crossmatch 03/14/21 03/14/21 03/14/21 17:29 17:50 18:35 WBC RBC Hgb Hct MCH MCHC RDW Plt Count Lymph % (Auto) [place] # (Auto) Eos # (Auto) Seg Neutrophils % Eosinophils % (Manual) Basophils % (Manual) Seg Neutrophils # Seg Neutrophils # Man Lymphocytes # (Manual) Eosinophils # (Manual) Basophils # (Manual) Percent Retic PT INR Fibrinogen D-Dimer ABG pH POC ABG pCO2 POC ABG pO2 ABG pO2 ABG HCO3 ABG O2 Saturation ABG Base Excess ABG Hemoglobin ABG Oxyhemoglobin ABG Sodium ABG Potassium ABG Chloride ABG Glucose Oxyhemoglobin Carboxyhemoglobin Sodium 135 L Potassium 6.4 H* Chloride Carbon Dioxide 15 L BUN 26 H Creatinine 3.4 H D Glucose 165 H POC Glucose 209 H Hemoglobin A1c Calcium Phosphorus Magnesium AST ALT Alkaline Phosphatase Lactate Dehydrogenase C-Reactive Protein Total Protein Albumin Triglycerides Arterial Blood Glucose Arterial Blood Ionized Calcium Urine Creatinine 40.1 H Random Vancomycin Coronavirus (PCR) Crossmatch 03/14/21 03/14/21 03/14/21 18:46 22:23 23:52 WBC RBC Hgb Hct MCH MCHC RDW Plt Count Lymph % (Auto) [place] # (Auto) Eos # (Auto) Seg Neutrophils % Eosinophils % (Manual) Basophils % (Manual) Seg Neutrophils # Seg Neutrophils # Man Lymphocytes # (Manual) Eosinophils # (Manual) Basophils # (Manual) Percent Retic PT INR Fibrinogen D-Dimer ABG pH 7.270 L POC ABG pCO2 POC ABG pO2 63.4 L ABG pO2 ABG HCO3 ABG O2 Saturation ABG Base Excess ABG Hemoglobin ABG Oxyhemoglobin 90.2 L ABG Sodium 134.9 L ABG Potassium 5.3 H ABG Chloride ABG Glucose 134 H Oxyhemoglobin Carboxyhemoglobin Sodium 136 L Potassium 5.2 H Chloride Carbon Dioxide 20 L BUN 29 H Creatinine 3.6 H Glucose 236 H POC Glucose 128 H Hemoglobin A1c Calcium Phosphorus Magnesium AST ALT Alkaline Phosphatase Lactate Dehydrogenase C-Reactive Protein Total Protein Albumin 3.2 L Triglycerides Arterial Blood Glucose 134 H Arterial Blood Ionized Calcium Urine Creatinine Random Vancomycin Coronavirus (PCR) Crossmatch 03/14/21 03/15/21 03/15/21 Unknown 05:00 05:09 WBC 22.5 H RBC Hgb Hct MCH 27 L MCHC RDW 17.6 H Plt Count Lymph % (Auto) [place] # (Auto) Eos # (Auto) Seg Neutrophils % Eosinophils % (Manual) Basophils % (Manual) Seg Neutrophils # Seg Neutrophils # Man Lymphocytes # (Manual) Eosinophils # (Manual) Basophils # (Manual) Percent Retic PT INR Fibrinogen D-Dimer ABG pH POC ABG pCO2 POC ABG pO2 ABG pO2 ABG HCO3 ABG O2 Saturation ABG Base Excess ABG Hemoglobin ABG Oxyhemoglobin ABG Sodium ABG Potassium ABG Chloride ABG Glucose Oxyhemoglobin Carboxyhemoglobin Sodium Potassium Chloride Carbon Dioxide BUN Creatinine Glucose POC Glucose 116 H Hemoglobin A1c Calcium Phosphorus Magnesium AST ALT Alkaline Phosphatase Lactate Dehydrogenase C-Reactive Protein Total Protein Albumin Triglycerides Arterial Blood Glucose Arterial Blood Ionized Calcium Urine Creatinine Random Vancomycin Coronavirus (PCR) Positive A Crossmatch 03/15/21 03/15/21 03/15/21 05:09 05:09 05:09 WBC RBC Hgb Hct MCH MCHC RDW Plt Count Lymph % (Auto) [place] # (Auto) Eos # (Auto) Seg Neutrophils % Eosinophils % (Manual) Basophils % (Manual) Seg Neutrophils # Seg Neutrophils # Man Lymphocytes # (Manual) Eosinophils # (Manual) Basophils # (Manual) Percent Retic PT INR Fibrinogen D-Dimer ABG pH POC ABG pCO2 POC ABG pO2 ABG pO2 ABG HCO3 ABG O2 Saturation ABG Base Excess ABG Hemoglobin ABG Oxyhemoglobin ABG Sodium ABG Potassium ABG Chloride ABG Glucose Oxyhemoglobin Carboxyhemoglobin Sodium 136 L Potassium 6.5 H* D Chloride Carbon Dioxide 17 L BUN 41 H Creatinine 5.3 H Glucose 128 H POC Glucose Hemoglobin A1c 6.3 H Calcium Phosphorus Magnesium AST ALT Alkaline Phosphatase Lactate Dehydrogenase C-Reactive Protein 12.10 H Total Protein Albumin 3.1 L Triglycerides Arterial Blood Glucose Arterial Blood Ionized Calcium Urine Creatinine Random Vancomycin Coronavirus (PCR) Crossmatch 03/15/21 03/15/21 03/15/21 10:00 21:50 23:39 WBC RBC Hgb Hct MCH MCHC RDW Plt Count Lymph % (Auto) [place] # (Auto) Eos # (Auto) Seg Neutrophils % Eosinophils % (Manual) Basophils % (Manual) Seg Neutrophils # Seg Neutrophils # Man Lymphocytes # (Manual) Eosinophils # (Manual) Basophils # (Manual) Percent Retic PT INR Fibrinogen D-Dimer ABG pH 7.098 L POC ABG pCO2 72.7 H POC ABG pO2 ABG pO2 162.5 H ABG HCO3 ABG O2 Saturation ABG Base Excess ABG Hemoglobin 10.1 L ABG Oxyhemoglobin ABG Sodium ABG Potassium 5.7 H ABG Chloride ABG Glucose Oxyhemoglobin Carboxyhemoglobin 0.4 L Sodium Potassium Chloride Carbon Dioxide BUN Creatinine Glucose POC Glucose 156 H Hemoglobin A1c Calcium Phosphorus Magnesium AST ALT Alkaline Phosphatase Lactate Dehydrogenase C-Reactive Protein Total Protein Albumin Triglycerides Arterial Blood Glucose Arterial Blood Ionized Calcium Urine Creatinine Random Vancomycin Coronavirus (PCR) Crossmatch 03/16/21 03/16/21 03/16/21 05:00 05:30 05:30 WBC 16.7 H RBC 3.59 L Hgb 9.6 L Hct 30.1 L MCH 27 L MCHC RDW 17.5 H Plt Count Lymph % (Auto) [place] # (Auto) Eos # (Auto) Seg Neutrophils % Eosinophils % (Manual) Basophils % (Manual) Seg Neutrophils # Seg Neutrophils # Man Lymphocytes # (Manual) Eosinophils # (Manual) Basophils # (Manual) Percent Retic PT INR Fibrinogen D-Dimer ABG pH POC ABG pCO2 POC ABG pO2 ABG pO2 ABG HCO3 ABG O2 Saturation ABG Base Excess ABG Hemoglobin ABG Oxyhemoglobin ABG Sodium ABG Potassium ABG Chloride ABG Glucose Oxyhemoglobin Carboxyhemoglobin Sodium Potassium Chloride Carbon Dioxide BUN 46 H Creatinine 6.2 H Glucose 131 H POC Glucose Hemoglobin A1c Calcium Phosphorus 6.00 H D Magnesium AST ALT Alkaline Phosphatase Lactate Dehydrogenase 318 H C-Reactive Protein 18.60 H Total Protein Albumin 3.0 L Triglycerides Arterial Blood Glucose Arterial Blood Ionized Calcium Urine Creatinine Random Vancomycin Coronavirus (PCR) Crossmatch 03/16/21 03/16/21 03/16/21 05:51 06:37 08:58 WBC RBC Hgb Hct MCH MCHC RDW Plt Count Lymph % (Auto) [place] # (Auto) Eos # (Auto) Seg Neutrophils % Eosinophils % (Manual) Basophils % (Manual) Seg Neutrophils # Seg Neutrophils # Man Lymphocytes # (Manual) Eosinophils # (Manual) Basophils # (Manual) Percent Retic PT INR Fibrinogen D-Dimer 3041.12 H ABG pH POC ABG pCO2 POC ABG pO2 ABG pO2 141.5 H ABG HCO3 ABG O2 Saturation ABG Base Excess ABG Hemoglobin 9.7 L ABG Oxyhemoglobin ABG Sodium ABG Potassium ABG Chloride ABG Glucose Oxyhemoglobin Carboxyhemoglobin Sodium Potassium Chloride Carbon Dioxide BUN Creatinine Glucose POC Glucose 126 H Hemoglobin A1c Calcium Phosphorus Magnesium AST ALT Alkaline Phosphatase Lactate Dehydrogenase C-Reactive Protein Total Protein Albumin Triglycerides Arterial Blood Glucose Arterial Blood Ionized Calcium Urine Creatinine Random Vancomycin Coronavirus (PCR) Crossmatch 03/16/21 03/16/21 03/16/21 12:11 16:51 21:00 WBC RBC Hgb Hct MCH MCHC RDW Plt Count Lymph % (Auto) [place] # (Auto) Eos # (Auto) Seg Neutrophils % Eosinophils % (Manual) Basophils % (Manual) Seg Neutrophils # Seg Neutrophils # Man Lymphocytes # (Manual) Eosinophils # (Manual) Basophils # (Manual) Percent Retic PT INR Fibrinogen D-Dimer ABG pH 7.239 L POC ABG pCO2 61.5 H POC ABG pO2 80.8 L ABG pO2 ABG HCO3 ABG O2 Saturation ABG Base Excess ABG Hemoglobin 11.4 L ABG Oxyhemoglobin 93.5 L ABG Sodium ABG Potassium 5.4 H ABG Chloride ABG Glucose 137 H Oxyhemoglobin Carboxyhemoglobin 0.2 L Sodium Potassium Chloride Carbon Dioxide BUN Creatinine Glucose POC Glucose 156 H 133 H Hemoglobin A1c Calcium Phosphorus Magnesium AST ALT Alkaline Phosphatase Lactate Dehydrogenase C-Reactive Protein Total Protein Albumin Triglycerides Arterial Blood Glucose 137 H Arterial Blood Ionized Calcium Urine Creatinine Random Vancomycin Coronavirus (PCR) Crossmatch 03/16/21 03/17/21 03/17/21 23:42 05:23 05:23 WBC 18.4 H RBC Hgb Hct MCH 27 L MCHC RDW 17.4 H Plt Count Lymph % (Auto) [place] # (Auto) Eos # (Auto) Seg Neutrophils % Eosinophils % (Manual) Basophils % (Manual) Seg Neutrophils # Seg Neutrophils # Man Lymphocytes # (Manual) Eosinophils # (Manual) Basophils # (Manual) Percent Retic PT INR Fibrinogen D-Dimer ABG pH POC ABG pCO2 POC ABG pO2 ABG pO2 ABG HCO3 ABG O2 Saturation ABG Base Excess ABG Hemoglobin ABG Oxyhemoglobin ABG Sodium ABG Potassium ABG Chloride ABG Glucose Oxyhemoglobin Carboxyhemoglobin Sodium Potassium 5.2 H Chloride Carbon Dioxide 21 L BUN 79 H Creatinine 8.6 H Glucose 124 H POC Glucose 133 H Hemoglobin A1c Calcium Phosphorus Magnesium AST ALT Alkaline Phosphatase Lactate Dehydrogenase C-Reactive Protein Total Protein Albumin 3.2 L Triglycerides 285 H Arterial Blood Glucose Arterial Blood Ionized Calcium Urine Creatinine Random Vancomycin Coronavirus (PCR) Crossmatch 03/17/21 03/17/21 03/17/21 05:23 10:48 12:20 WBC RBC Hgb Hct MCH MCHC RDW Plt Count Lymph % (Auto) [place] # (Auto) Eos # (Auto) Seg Neutrophils % Eosinophils % (Manual) Basophils % (Manual) Seg Neutrophils # Seg Neutrophils # Man Lymphocytes # (Manual) Eosinophils # (Manual) Basophils # (Manual) Percent Retic PT INR Fibrinogen D-Dimer ABG pH 7.294 L POC ABG pCO2 POC ABG pO2 ABG pO2 90.3 H ABG HCO3 ABG O2 Saturation ABG Base Excess ABG Hemoglobin 9.9 L ABG Oxyhemoglobin ABG Sodium ABG Potassium ABG Chloride ABG Glucose Oxyhemoglobin Carboxyhemoglobin Sodium Potassium 5.2 H Chloride Carbon Dioxide 21 L BUN 79 H Creatinine 8.4 H Glucose 125 H POC Glucose 171 H Hemoglobin A1c Calcium Phosphorus 9.90 H D Magnesium 2.40 H AST ALT Alkaline Phosphatase Lactate Dehydrogenase C-Reactive Protein Total Protein Albumin Triglycerides Arterial Blood Glucose Arterial Blood Ionized Calcium Urine Creatinine Random Vancomycin Coronavirus (PCR) Crossmatch 03/17/21 03/17/21 03/18/21 17:24 21:00 04:30 WBC RBC Hgb Hct MCH MCHC RDW Plt Count Lymph % (Auto) [place] # (Auto) Eos # (Auto) Seg Neutrophils % Eosinophils % (Manual) Basophils % (Manual) Seg Neutrophils # Seg Neutrophils # Man Lymphocytes # (Manual) Eosinophils # (Manual) Basophils # (Manual) Percent Retic PT INR Fibrinogen D-Dimer 9953.09 H ABG pH 7.310 L POC ABG pCO2 54.5 H POC ABG pO2 62.3 L ABG pO2 ABG HCO3 ABG O2 Saturation ABG Base Excess ABG Hemoglobin 10.2 L ABG Oxyhemoglobin 88.6 L ABG Sodium ABG Potassium 4.7 H ABG Chloride ABG Glucose 99 H Oxyhemoglobin Carboxyhemoglobin 0.3 L Sodium Potassium Chloride Carbon Dioxide BUN Creatinine Glucose POC Glucose 121 H Hemoglobin A1c Calcium Phosphorus Magnesium AST ALT Alkaline Phosphatase Lactate Dehydrogenase C-Reactive Protein Total Protein Albumin Triglycerides Arterial Blood Glucose 99 H Arterial Blood Ionized Calcium 4.3 L Urine Creatinine Random Vancomycin Coronavirus (PCR) Crossmatch 03/18/21 03/18/21 03/18/21 04:30 04:30 11:34 WBC 12.8 H RBC 3.49 L Hgb 9.4 L Hct 29.3 L MCH 27 L MCHC RDW 17.4 H Plt Count Lymph % (Auto) [place] # (Auto) Eos # (Auto) Seg Neutrophils % Eosinophils % (Manual) Basophils % (Manual) Seg Neutrophils # Seg Neutrophils # Man Lymphocytes # (Manual) Eosinophils # (Manual) Basophils # (Manual) Percent Retic PT INR Fibrinogen D-Dimer ABG pH POC ABG pCO2 POC ABG pO2 ABG pO2 ABG HCO3 ABG O2 Saturation ABG Base Excess ABG Hemoglobin ABG Oxyhemoglobin ABG Sodium ABG Potassium ABG Chloride ABG Glucose Oxyhemoglobin Carboxyhemoglobin Sodium Potassium Chloride Carbon Dioxide BUN 69 H Creatinine 7.3 H Glucose POC Glucose 114 H Hemoglobin A1c Calcium 8.2 L Phosphorus 7.60 H D Magnesium AST ALT Alkaline Phosphatase Lactate Dehydrogenase 477 H C-Reactive Protein 6.90 H Total Protein Albumin Triglycerides Arterial Blood Glucose Arterial Blood Ionized Calcium Urine Creatinine Random Vancomycin Coronavirus (PCR) Crossmatch 03/18/21 03/19/21 03/19/21 21:44 04:13 04:13 WBC 13.7 H RBC 3.32 L Hgb 9.0 L Hct 28.1 L MCH 27 L MCHC RDW 16.9 H Plt Count Lymph % (Auto) [place] # (Auto) Eos # (Auto) Seg Neutrophils % Eosinophils % (Manual) Basophils % (Manual) Seg Neutrophils # Seg Neutrophils # Man Lymphocytes # (Manual) Eosinophils # (Manual) Basophils # (Manual) Percent Retic PT INR Fibrinogen D-Dimer ABG pH 7.290 L POC ABG pCO2 POC ABG pO2 ABG pO2 119.7 H ABG HCO3 28.0 H ABG O2 Saturation ABG Base Excess ABG Hemoglobin 9.6 L ABG Oxyhemoglobin ABG Sodium ABG Potassium ABG Chloride ABG Glucose Oxyhemoglobin Carboxyhemoglobin Sodium Potassium Chloride Carbon Dioxide BUN Creatinine Glucose POC Glucose Hemoglobin A1c Calcium Phosphorus Magnesium AST ALT Alkaline Phosphatase Lactate Dehydrogenase C-Reactive Protein Total Protein Albumin Triglycerides Arterial Blood Glucose Arterial Blood Ionized Calcium Urine Creatinine Random Vancomycin 43.5 H Coronavirus (PCR) Crossmatch 03/19/21 03/19/21 03/19/21 04:13 05:59 11:40 WBC RBC Hgb Hct MCH MCHC RDW Plt Count Lymph % (Auto) [place] # (Auto) Eos # (Auto) Seg Neutrophils % Eosinophils % (Manual) Basophils % (Manual) Seg Neutrophils # Seg Neutrophils # Man Lymphocytes # (Manual) Eosinophils # (Manual) Basophils # (Manual) Percent Retic PT INR Fibrinogen D-Dimer ABG pH POC ABG pCO2 POC ABG pO2 ABG pO2 ABG HCO3 ABG O2 Saturation ABG Base Excess ABG Hemoglobin ABG Oxyhemoglobin ABG Sodium ABG Potassium ABG Chloride ABG Glucose Oxyhemoglobin Carboxyhemoglobin Sodium Potassium Chloride Carbon Dioxide BUN 55 H Creatinine 7.0 H Glucose POC Glucose 116 H 145 H Hemoglobin A1c Calcium 8.1 L Phosphorus 7.90 H Magnesium AST ALT Alkaline Phosphatase Lactate Dehydrogenase C-Reactive Protein Total Protein Albumin Triglycerides Arterial Blood Glucose Arterial Blood Ionized Calcium Urine Creatinine Random Vancomycin Coronavirus (PCR) Crossmatch 03/19/21 03/19/21 03/20/21 17:01 23:41 04:00 WBC 15.6 H RBC 3.55 L Hgb 9.6 L Hct MCH 27 L MCHC RDW 16.8 H Plt Count 139 L Lymph % (Auto) [place] # (Auto) Eos # (Auto) Seg Neutrophils % Eosinophils % (Manual) Basophils % (Manual) Seg Neutrophils # Seg Neutrophils # Man Lymphocytes # (Manual) Eosinophils # (Manual) Basophils # (Manual) Percent Retic PT INR Fibrinogen D-Dimer ABG pH POC ABG pCO2 POC ABG pO2 ABG pO2 ABG HCO3 ABG O2 Saturation ABG Base Excess ABG Hemoglobin ABG Oxyhemoglobin ABG Sodium ABG Potassium ABG Chloride ABG Glucose Oxyhemoglobin Carboxyhemoglobin Sodium Potassium Chloride Carbon Dioxide BUN Creatinine Glucose POC Glucose 111 H 118 H Hemoglobin A1c Calcium Phosphorus Magnesium AST ALT Alkaline Phosphatase Lactate Dehydrogenase C-Reactive Protein Total Protein Albumin Triglycerides Arterial Blood Glucose Arterial Blood Ionized Calcium Urine Creatinine Random Vancomycin Coronavirus (PCR) Crossmatch 03/20/21 03/20/21 03/20/21 04:00 04:00 04:37 WBC RBC Hgb Hct MCH MCHC RDW Plt Count Lymph % (Auto) [place] # (Auto) Eos # (Auto) Seg Neutrophils % Eosinophils % (Manual) Basophils % (Manual) Seg Neutrophils # Seg Neutrophils # Man Lymphocytes # (Manual) Eosinophils # (Manual) Basophils # (Manual) Percent Retic PT INR Fibrinogen D-Dimer > 40623 H ABG pH 7.306 L POC ABG pCO2 POC ABG pO2 ABG pO2 ABG HCO3 27.9 H ABG O2 Saturation ABG Base Excess ABG Hemoglobin 5.2 L ABG Oxyhemoglobin ABG Sodium ABG Potassium ABG Chloride ABG Glucose Oxyhemoglobin Carboxyhemoglobin Sodium Potassium 5.2 H Chloride 97.6 L Carbon Dioxide BUN 52 H Creatinine 6.2 H Glucose 104 H POC Glucose Hemoglobin A1c Calcium Phosphorus 8.60 H Magnesium AST ALT Alkaline Phosphatase Lactate Dehydrogenase C-Reactive Protein 6.90 H Total Protein Albumin Triglycerides Arterial Blood Glucose Arterial Blood Ionized Calcium Urine Creatinine Random Vancomycin Coronavirus (PCR) Crossmatch 03/20/21 03/20/21 03/20/21 13:50 17:46 17:56 WBC RBC Hgb Hct MCH MCHC RDW Plt Count Lymph % (Auto) [place] # (Auto) Eos # (Auto) Seg Neutrophils % Eosinophils % (Manual) Basophils % (Manual) Seg Neutrophils # Seg Neutrophils # Man Lymphocytes # (Manual) Eosinophils # (Manual) Basophils # (Manual) Percent Retic PT INR Fibrinogen D-Dimer ABG pH POC ABG pCO2 POC ABG pO2 ABG pO2 ABG HCO3 ABG O2 Saturation ABG Base Excess ABG Hemoglobin ABG Oxyhemoglobin ABG Sodium ABG Potassium ABG Chloride ABG Glucose Oxyhemoglobin Carboxyhemoglobin Sodium Potassium Chloride Carbon Dioxide BUN 63 H 43 H Creatinine Glucose POC Glucose 145 H Hemoglobin A1c Calcium Phosphorus Magnesium AST ALT Alkaline Phosphatase Lactate Dehydrogenase C-Reactive Protein Total Protein Albumin Triglycerides Arterial Blood Glucose Arterial Blood Ionized Calcium Urine Creatinine Random Vancomycin Coronavirus (PCR) Crossmatch 03/20/21 03/21/21 03/21/21 23:18 06:58 06:58 WBC 14.4 H RBC 3.41 L Hgb 9.5 L Hct 28.6 L MCH MCHC RDW 17.4 H Plt Count 107 L Lymph % (Auto) [place] # (Auto) Eos # (Auto) Seg Neutrophils % Eosinophils % (Manual) Basophils % (Manual) Seg Neutrophils # Seg Neutrophils # Man Lymphocytes # (Manual) Eosinophils # (Manual) Basophils # (Manual) Percent Retic PT INR Fibrinogen D-Dimer ABG pH POC ABG pCO2 POC ABG pO2 ABG pO2 ABG HCO3 ABG O2 Saturation ABG Base Excess ABG Hemoglobin ABG Oxyhemoglobin ABG Sodium ABG Potassium ABG Chloride ABG Glucose Oxyhemoglobin Carboxyhemoglobin Sodium Potassium Chloride Carbon Dioxide BUN 60 H Creatinine 7.7 H Glucose POC Glucose 106 H Hemoglobin A1c Calcium Phosphorus Magnesium AST ALT Alkaline Phosphatase Lactate Dehydrogenase C-Reactive Protein Total Protein Albumin Triglycerides Arterial Blood Glucose Arterial Blood Ionized Calcium Urine Creatinine Random Vancomycin Coronavirus (PCR) Crossmatch 03/21/21 03/21/21 03/21/21 11:11 18:04 Unknown WBC RBC Hgb Hct MCH MCHC RDW Plt Count Lymph % (Auto) [place] # (Auto) Eos # (Auto) Seg Neutrophils % Eosinophils % (Manual) Basophils % (Manual) Seg Neutrophils # Seg Neutrophils # Man Lymphocytes # (Manual) Eosinophils # (Manual) Basophils # (Manual) Percent Retic PT INR Fibrinogen D-Dimer ABG pH 7.270 L POC ABG pCO2 58.7 H POC ABG pO2 76.9 L ABG pO2 ABG HCO3 ABG O2 Saturation ABG Base Excess ABG Hemoglobin 9.9 L ABG Oxyhemoglobin 92.4 L ABG Sodium 135.8 L ABG Potassium 4.6 H ABG Chloride ABG Glucose Oxyhemoglobin Carboxyhemoglobin 0.1 L Sodium Potassium Chloride Carbon Dioxide BUN Creatinine Glucose POC Glucose 109 H 141 H Hemoglobin A1c Calcium Phosphorus Magnesium AST ALT Alkaline Phosphatase Lactate Dehydrogenase C-Reactive Protein Total Protein Albumin Triglycerides Arterial Blood Glucose Arterial Blood Ionized Calcium 4.5 L Urine Creatinine Random Vancomycin Coronavirus (PCR) Crossmatch 03/22/21 03/22/21 03/22/21 03:09 07:10 10:00 WBC RBC Hgb Hct MCH MCHC RDW Plt Count Lymph % (Auto) [place] # (Auto) Eos # (Auto) Seg Neutrophils % Eosinophils % (Manual) Basophils % (Manual) Seg Neutrophils # Seg Neutrophils # Man Lymphocytes # (Manual) Eosinophils # (Manual) Basophils # (Manual) Percent Retic PT INR Fibrinogen D-Dimer ABG pH 7.206 L 7.245 L POC ABG pCO2 55.6 H POC ABG pO2 ABG pO2 90.6 H ABG HCO3 ABG O2 Saturation ABG Base Excess -4.4 L ABG Hemoglobin 9.0 L 8.4 L ABG Oxyhemoglobin ABG Sodium 123.4 L ABG Potassium 5.6 H ABG Chloride ABG Glucose 106 H Oxyhemoglobin 94.5 L Carboxyhemoglobin 0.1 L Sodium Potassium 5.4 H Chloride 96.8 L Carbon Dioxide BUN 89 H Creatinine 8.7 H Glucose 131 H POC Glucose Hemoglobin A1c Calcium Phosphorus Magnesium AST ALT Alkaline Phosphatase Lactate Dehydrogenase C-Reactive Protein 9.40 H Total Protein Albumin Triglycerides Arterial Blood Glucose 106 H Arterial Blood Ionized Calcium Urine Creatinine Random Vancomycin Coronavirus (PCR) Crossmatch 03/22/21 03/22/21 03/22/21 10:00 12:37 13:19 WBC RBC 3.05 L Hgb 8.4 L Hct 25.5 L MCH MCHC RDW 17.5 H Plt Count 108 L Lymph % (Auto) [place] # (Auto) Eos # (Auto) Seg Neutrophils % Eosinophils % (Manual) Basophils % (Manual) Seg Neutrophils # Seg Neutrophils # Man Lymphocytes # (Manual) Eosinophils # (Manual) Basophils # (Manual) Percent Retic PT INR Fibrinogen D-Dimer ABG pH POC ABG pCO2 POC ABG pO2 ABG pO2 ABG HCO3 ABG O2 Saturation ABG Base Excess ABG Hemoglobin ABG Oxyhemoglobin ABG Sodium ABG Potassium ABG Chloride ABG Glucose Oxyhemoglobin Carboxyhemoglobin Sodium Potassium Chloride Carbon Dioxide BUN Creatinine 8.7 H Glucose POC Glucose 140 H Hemoglobin A1c Calcium Phosphorus Magnesium AST ALT Alkaline Phosphatase Lactate Dehydrogenase C-Reactive Protein Total Protein Albumin Triglycerides Arterial Blood Glucose Arterial Blood Ionized Calcium Urine Creatinine Random Vancomycin Coronavirus (PCR) Crossmatch 03/22/21 03/22/21 03/22/21 13:40 17:14 18:21 WBC RBC Hgb Hct MCH MCHC RDW Plt Count Lymph % (Auto) [place] # (Auto) Eos # (Auto) Seg Neutrophils % Eosinophils % (Manual) Basophils % (Manual) Seg Neutrophils # Seg Neutrophils # Man Lymphocytes # (Manual) Eosinophils # (Manual) Basophils # (Manual) Percent Retic PT 15.8 H INR 1.14 H Fibrinogen D-Dimer > 58426 H ABG pH POC ABG pCO2 POC ABG pO2 ABG pO2 ABG HCO3 ABG O2 Saturation ABG Base Excess ABG Hemoglobin ABG Oxyhemoglobin ABG Sodium ABG Potassium ABG Chloride ABG Glucose Oxyhemoglobin Carboxyhemoglobin Sodium Potassium Chloride Carbon Dioxide BUN Creatinine Glucose POC Glucose 117 H 112 H Hemoglobin A1c Calcium Phosphorus Magnesium AST ALT Alkaline Phosphatase Lactate Dehydrogenase C-Reactive Protein Total Protein Albumin Triglycerides Arterial Blood Glucose Arterial Blood Ionized Calcium Urine Creatinine Random Vancomycin Coronavirus (PCR) Crossmatch 03/22/21 03/22/21 03/23/21 21:25 22:57 04:30 WBC RBC Hgb Hct MCH MCHC RDW Plt Count Lymph % (Auto) [place] # (Auto) Eos # (Auto) Seg Neutrophils % Eosinophils % (Manual) Basophils % (Manual) Seg Neutrophils # Seg Neutrophils # Man Lymphocytes # (Manual) Eosinophils # (Manual) Basophils # (Manual) Percent Retic PT INR Fibrinogen D-Dimer ABG pH 7.188 L* POC ABG pCO2 POC ABG pO2 ABG pO2 97.9 H ABG HCO3 ABG O2 Saturation ABG Base Excess -3.7 L ABG Hemoglobin 9.2 L ABG Oxyhemoglobin ABG Sodium ABG Potassium ABG Chloride ABG Glucose Oxyhemoglobin 94.4 L Carboxyhemoglobin Sodium Potassium Chloride Carbon Dioxide BUN Creatinine Glucose POC Glucose 106 H Hemoglobin A1c Calcium Phosphorus Magnesium AST ALT Alkaline Phosphatase Lactate Dehydrogenase C-Reactive Protein Total Protein Albumin Triglycerides 381 H Arterial Blood Glucose Arterial Blood Ionized Calcium Urine Creatinine Random Vancomycin Coronavirus (PCR) Crossmatch 03/23/21 03/23/21 03/23/21 04:30 04:30 05:37 WBC 20.1 H RBC 3.17 L Hgb 8.6 L Hct 27.2 L MCH 27 L MCHC RDW 17.4 H Plt Count 118 L Lymph % (Auto) [place] # (Auto) Eos # (Auto) Seg Neutrophils % Eosinophils % (Manual) Basophils % (Manual) Seg Neutrophils # Seg Neutrophils # Man Lymphocytes # (Manual) Eosinophils # (Manual) Basophils # (Manual) Percent Retic PT INR Fibrinogen D-Dimer ABG pH POC ABG pCO2 POC ABG pO2 ABG pO2 ABG HCO3 ABG O2 Saturation ABG Base Excess ABG Hemoglobin ABG Oxyhemoglobin ABG Sodium ABG Potassium ABG Chloride ABG Glucose Oxyhemoglobin Carboxyhemoglobin Sodium Potassium 5.2 H Chloride 97.1 L Carbon Dioxide 21 L BUN 82 H Creatinine 9.1 H Glucose 109 H POC Glucose 130 H Hemoglobin A1c Calcium Phosphorus 10.80 H Magnesium 3.50 H AST ALT Alkaline Phosphatase Lactate Dehydrogenase C-Reactive Protein Total Protein Albumin Triglycerides Arterial Blood Glucose Arterial Blood Ionized Calcium Urine Creatinine Random Vancomycin Coronavirus (PCR) Crossmatch 03/23/21 03/23/21 03/23/21 08:44 11:30 16:09 WBC RBC Hgb Hct MCH MCHC RDW Plt Count Lymph % (Auto) [place] # (Auto) Eos # (Auto) Seg Neutrophils % Eosinophils % (Manual) Basophils % (Manual) Seg Neutrophils # Seg Neutrophils # Man Lymphocytes # (Manual) Eosinophils # (Manual) Basophils # (Manual) Percent Retic PT INR Fibrinogen D-Dimer ABG pH 7.190 L POC ABG pCO2 57.9 H POC ABG pO2 79.2 L ABG pO2 ABG HCO3 ABG O2 Saturation ABG Base Excess ABG Hemoglobin 11.8 L ABG Oxyhemoglobin 92.3 L ABG Sodium 131.0 L ABG Potassium 5.0 H ABG Chloride ABG Glucose 122 H Oxyhemoglobin Carboxyhemoglobin 0.4 L Sodium Potassium Chloride Carbon Dioxide BUN Creatinine Glucose POC Glucose 129 H 148 H Hemoglobin A1c Calcium Phosphorus Magnesium AST ALT Alkaline Phosphatase Lactate Dehydrogenase C-Reactive Protein Total Protein Albumin Triglycerides Arterial Blood Glucose 122 H Arterial Blood Ionized Calcium 4.4 L Urine Creatinine Random Vancomycin Coronavirus (PCR) Crossmatch 03/23/21 03/24/21 03/24/21 21:00 03:35 04:00 WBC 17.8 H RBC 2.96 L Hgb 8.1 L Hct 25.0 L MCH 27 L MCHC RDW 17.7 H Plt Count 124 L Lymph % (Auto) [place] # (Auto) Eos # (Auto) Seg Neutrophils % Eosinophils % (Manual) Basophils % (Manual) Seg Neutrophils # Seg Neutrophils # Man Lymphocytes # (Manual) Eosinophils # (Manual) Basophils # (Manual) Percent Retic PT INR Fibrinogen D-Dimer ABG pH 7.223 L POC ABG pCO2 50.3 H POC ABG pO2 114.4 H ABG pO2 ABG HCO3 ABG O2 Saturation ABG Base Excess ABG Hemoglobin 8.8 L ABG Oxyhemoglobin ABG Sodium 130.4 L ABG Potassium 5.1 H ABG Chloride ABG Glucose 126 H Oxyhemoglobin Carboxyhemoglobin 0.2 L Sodium Potassium Chloride Carbon Dioxide BUN Creatinine Glucose POC Glucose 148 H Hemoglobin A1c Calcium Phosphorus Magnesium AST ALT Alkaline Phosphatase Lactate Dehydrogenase C-Reactive Protein Total Protein Albumin Triglycerides Arterial Blood Glucose 126 H Arterial Blood Ionized Calcium 4.4 L Urine Creatinine Random Vancomycin Coronavirus (PCR) Crossmatch 03/24/21 03/24/21 03/24/21 04:00 06:49 12:29 WBC RBC Hgb Hct MCH MCHC RDW Plt Count Lymph % (Auto) [place] # (Auto) Eos # (Auto) Seg Neutrophils % Eosinophils % (Manual) Basophils % (Manual) Seg Neutrophils # Seg Neutrophils # Man Lymphocytes # (Manual) Eosinophils # (Manual) Basophils # (Manual) Percent Retic PT INR Fibrinogen D-Dimer ABG pH POC ABG pCO2 POC ABG pO2 ABG pO2 ABG HCO3 ABG O2 Saturation ABG Base Excess ABG Hemoglobin ABG Oxyhemoglobin ABG Sodium ABG Potassium ABG Chloride ABG Glucose Oxyhemoglobin Carboxyhemoglobin Sodium Potassium Chloride 95.6 L Carbon Dioxide 20 L BUN 108 H Creatinine 10.8 H Glucose 155 H POC Glucose 136 H 142 H Hemoglobin A1c Calcium Phosphorus Magnesium AST ALT Alkaline Phosphatase Lactate Dehydrogenase C-Reactive Protein Total Protein Albumin Triglycerides Arterial Blood Glucose Arterial Blood Ionized Calcium Urine Creatinine Random Vancomycin Coronavirus (PCR) Crossmatch 03/24/21 03/25/21 03/25/21 21:35 00:15 05:51 WBC RBC Hgb Hct MCH MCHC RDW Plt Count Lymph % (Auto) [place] # (Auto) Eos # (Auto) Seg Neutrophils % Eosinophils % (Manual) Basophils % (Manual) Seg Neutrophils # Seg Neutrophils # Man Lymphocytes # (Manual) Eosinophils # (Manual) Basophils # (Manual) Percent Retic PT INR Fibrinogen D-Dimer ABG pH 7.241 L POC ABG pCO2 POC ABG pO2 ABG pO2 72.4 L ABG HCO3 ABG O2 Saturation 90.3 L ABG Base Excess ABG Hemoglobin 7.9 L ABG Oxyhemoglobin ABG Sodium ABG Potassium ABG Chloride ABG Glucose Oxyhemoglobin 88.4 L Carboxyhemoglobin Sodium Potassium Chloride Carbon Dioxide BUN Creatinine Glucose POC Glucose 110 H 121 H Hemoglobin A1c Calcium Phosphorus Magnesium AST ALT Alkaline Phosphatase Lactate Dehydrogenase C-Reactive Protein Total Protein Albumin Triglycerides Arterial Blood Glucose Arterial Blood Ionized Calcium Urine Creatinine Random Vancomycin Coronavirus (PCR) Crossmatch 03/25/21 03/25/21 03/25/21 05:54 05:54 12:21 WBC 12.4 H RBC 2.52 L Hgb 6.9 L Hct 21.1 L MCH MCHC RDW 17.4 H Plt Count 102 L Lymph % (Auto) [place] # (Auto) Eos # (Auto) Seg Neutrophils % Eosinophils % (Manual) Basophils % (Manual) Seg Neutrophils # Seg Neutrophils # Man Lymphocytes # (Manual) Eosinophils # (Manual) Basophils # (Manual) Percent Retic PT INR Fibrinogen D-Dimer ABG pH POC ABG pCO2 POC ABG pO2 ABG pO2 ABG HCO3 ABG O2 Saturation ABG Base Excess ABG Hemoglobin ABG Oxyhemoglobin ABG Sodium ABG Potassium ABG Chloride ABG Glucose Oxyhemoglobin Carboxyhemoglobin Sodium Potassium Chloride 96.7 L Carbon Dioxide BUN 81 H Creatinine 8.1 H Glucose 116 H POC Glucose 138 H Hemoglobin A1c Calcium 8.2 L Phosphorus Magnesium AST ALT Alkaline Phosphatase Lactate Dehydrogenase C-Reactive Protein Total Protein Albumin Triglycerides Arterial Blood Glucose Arterial Blood Ionized Calcium Urine Creatinine Random Vancomycin Coronavirus (PCR) Crossmatch 03/25/21 03/25/21 03/25/21 13:45 17:32 21:30 WBC RBC Hgb Hct MCH MCHC RDW Plt Count Lymph % (Auto) [place] # (Auto) Eos # (Auto) Seg Neutrophils % Eosinophils % (Manual) Basophils % (Manual) Seg Neutrophils # Seg Neutrophils # Man Lymphocytes # (Manual) Eosinophils # (Manual) Basophils # (Manual) Percent Retic PT INR Fibrinogen D-Dimer ABG pH POC ABG pCO2 POC ABG pO2 ABG pO2 70.2 L ABG HCO3 ABG O2 Saturation ABG Base Excess ABG Hemoglobin 6.8 L ABG Oxyhemoglobin ABG Sodium ABG Potassium ABG Chloride ABG Glucose Oxyhemoglobin 94.5 L Carboxyhemoglobin Sodium Potassium Chloride Carbon Dioxide BUN Creatinine Glucose POC Glucose 110 H Hemoglobin A1c Calcium Phosphorus Magnesium AST ALT Alkaline Phosphatase Lactate Dehydrogenase C-Reactive Protein Total Protein Albumin Triglycerides Arterial Blood Glucose Arterial Blood Ionized Calcium Urine Creatinine Random Vancomycin Coronavirus (PCR) Crossmatch See Detail 03/25/21 03/25/21 03/26/21 23:29 Unknown 05:15 WBC 12.4 H 14.0 H RBC 2.49 L 2.83 L Hgb 6.8 L 7.6 L Hct 20.9 L 23.6 L MCH 27 L 27 L MCHC RDW 18.0 H 17.1 H Plt Count 107 L 116 L Lymph % (Auto) [place] # (Auto) Eos # (Auto) Seg Neutrophils % Eosinophils % (Manual) Basophils % (Manual) Seg Neutrophils # Seg Neutrophils # Man Lymphocytes # (Manual) Eosinophils # (Manual) Basophils # (Manual) Percent Retic PT INR Fibrinogen D-Dimer ABG pH POC ABG pCO2 POC ABG pO2 ABG pO2 ABG HCO3 ABG O2 Saturation ABG Base Excess ABG Hemoglobin ABG Oxyhemoglobin ABG Sodium ABG Potassium ABG Chloride ABG Glucose Oxyhemoglobin Carboxyhemoglobin Sodium Potassium Chloride Carbon Dioxide BUN Creatinine Glucose POC Glucose 113 H Hemoglobin A1c Calcium Phosphorus Magnesium AST ALT Alkaline Phosphatase Lactate Dehydrogenase C-Reactive Protein Total Protein Albumin Triglycerides Arterial Blood Glucose Arterial Blood Ionized Calcium Urine Creatinine Random Vancomycin Coronavirus (PCR) Crossmatch 03/26/21 03/26/21 03/26/21 05:15 05:35 09:50 WBC RBC Hgb Hct MCH MCHC RDW Plt Count Lymph % (Auto) [place] # (Auto) Eos # (Auto) Seg Neutrophils % Eosinophils % (Manual) Basophils % (Manual) Seg Neutrophils # Seg Neutrophils # Man Lymphocytes # (Manual) Eosinophils # (Manual) Basophils # (Manual) Percent Retic PT INR Fibrinogen D-Dimer ABG pH POC ABG pCO2 POC ABG pO2 ABG pO2 79.9 L ABG HCO3 ABG O2 Saturation ABG Base Excess ABG Hemoglobin 7.1 L ABG Oxyhemoglobin ABG Sodium ABG Potassium ABG Chloride ABG Glucose Oxyhemoglobin 94.9 L Carboxyhemoglobin Sodium Potassium 3.4 L Chloride Carbon Dioxide BUN 70 H Creatinine 7.3 H Glucose 142 H POC Glucose 130 H Hemoglobin A1c Calcium 8.2 L Phosphorus Magnesium AST ALT Alkaline Phosphatase Lactate Dehydrogenase C-Reactive Protein Total Protein Albumin Triglycerides 254 H Arterial Blood Glucose Arterial Blood Ionized Calcium Urine Creatinine Random Vancomycin Coronavirus (PCR) Crossmatch 03/26/21 03/26/21 03/26/21 11:45 16:36 23:33 WBC RBC Hgb Hct MCH MCHC RDW Plt Count Lymph % (Auto) [place] # (Auto) Eos # (Auto) Seg Neutrophils % Eosinophils % (Manual) Basophils % (Manual) Seg Neutrophils # Seg Neutrophils # Man Lymphocytes # (Manual) Eosinophils # (Manual) Basophils # (Manual) Percent Retic PT INR Fibrinogen D-Dimer ABG pH POC ABG pCO2 POC ABG pO2 ABG pO2 ABG HCO3 ABG O2 Saturation ABG Base Excess ABG Hemoglobin ABG Oxyhemoglobin ABG Sodium ABG Potassium ABG Chloride ABG Glucose Oxyhemoglobin Carboxyhemoglobin Sodium Potassium Chloride Carbon Dioxide BUN Creatinine Glucose POC Glucose 123 H 121 H 120 H Hemoglobin A1c Calcium Phosphorus Magnesium AST ALT Alkaline Phosphatase Lactate Dehydrogenase C-Reactive Protein Total Protein Albumin Triglycerides Arterial Blood Glucose Arterial Blood Ionized Calcium Urine Creatinine Random Vancomycin Coronavirus (PCR) Crossmatch 03/27/21 03/27/21 03/27/21 03:20 04:14 08:20 WBC 13.2 H RBC 2.82 L Hgb 7.9 L Hct 23.5 L MCH MCHC RDW 17.3 H Plt Count 125 L Lymph % (Auto) [place] # (Auto) Eos # (Auto) Seg Neutrophils % Eosinophils % (Manual) Basophils % (Manual) Seg Neutrophils # Seg Neutrophils # Man Lymphocytes # (Manual) Eosinophils # (Manual) Basophils # (Manual) Percent Retic PT INR Fibrinogen D-Dimer ABG pH POC ABG pCO2 50.0 H POC ABG pO2 58.3 L ABG pO2 ABG HCO3 ABG O2 Saturation ABG Base Excess ABG Hemoglobin 11.3 L ABG Oxyhemoglobin 88.5 L ABG Sodium ABG Potassium ABG Chloride ABG Glucose 132 H Oxyhemoglobin Carboxyhemoglobin 0.2 L Sodium Potassium Chloride Carbon Dioxide BUN Creatinine Glucose POC Glucose 119 H Hemoglobin A1c Calcium Phosphorus Magnesium AST ALT Alkaline Phosphatase Lactate Dehydrogenase C-Reactive Protein Total Protein Albumin Triglycerides Arterial Blood Glucose 132 H Arterial Blood Ionized Calcium Urine Creatinine Random Vancomycin Coronavirus (PCR) Crossmatch 03/27/21 03/27/21 03/27/21 08:20 11:39 17:32 WBC RBC Hgb Hct MCH MCHC RDW Plt Count Lymph % (Auto) [place] # (Auto) Eos # (Auto) Seg Neutrophils % Eosinophils % (Manual) Basophils % (Manual) Seg Neutrophils # Seg Neutrophils # Man Lymphocytes # (Manual) Eosinophils # (Manual) Basophils # (Manual) Percent Retic PT INR Fibrinogen D-Dimer ABG pH POC ABG pCO2 POC ABG pO2 ABG pO2 ABG HCO3 ABG O2 Saturation ABG Base Excess ABG Hemoglobin ABG Oxyhemoglobin ABG Sodium ABG Potassium ABG Chloride ABG Glucose Oxyhemoglobin Carboxyhemoglobin Sodium Potassium Chloride Carbon Dioxide BUN 57 H Creatinine 6.8 H Glucose 131 H POC Glucose 121 H 126 H Hemoglobin A1c Calcium Phosphorus Magnesium AST ALT Alkaline Phosphatase Lactate Dehydrogenase C-Reactive Protein Total Protein Albumin Triglycerides Arterial Blood Glucose Arterial Blood Ionized Calcium Urine Creatinine Random Vancomycin Coronavirus (PCR) Crossmatch 03/28/21 03/28/21 03/28/21 00:10 04:45 05:25 WBC RBC Hgb Hct MCH MCHC RDW Plt Count Lymph % (Auto) [place] # (Auto) Eos # (Auto) Seg Neutrophils % Eosinophils % (Manual) Basophils % (Manual) Seg Neutrophils # Seg Neutrophils # Man Lymphocytes # (Manual) Eosinophils # (Manual) Basophils # (Manual) Percent Retic PT INR Fibrinogen D-Dimer ABG pH POC ABG pCO2 POC ABG pO2 ABG pO2 57.6 L ABG HCO3 27.1 H ABG O2 Saturation 88.5 L ABG Base Excess ABG Hemoglobin ABG Oxyhemoglobin ABG Sodium ABG Potassium ABG Chloride ABG Glucose Oxyhemoglobin 86.6 L Carboxyhemoglobin Sodium Potassium Chloride Carbon Dioxide BUN Creatinine Glucose POC Glucose 113 H 121 H Hemoglobin A1c Calcium Phosphorus Magnesium AST ALT Alkaline Phosphatase Lactate Dehydrogenase C-Reactive Protein Total Protein Albumin Triglycerides Arterial Blood Glucose Arterial Blood Ionized Calcium Urine Creatinine Random Vancomycin Coronavirus (PCR) Crossmatch 03/28/21 03/28/21 03/28/21 09:37 09:37 11:48 WBC 16.3 H RBC 2.92 L Hgb 8.2 L Hct 24.8 L MCH MCHC RDW 17.5 H Plt Count Lymph % (Auto) 10.7 L [place] # (Auto) 0.9 H Eos # (Auto) 0.6 H Seg Neutrophils % 80.0 H Eosinophils % (Manual) Basophils % (Manual) Seg Neutrophils # 13.0 H Seg Neutrophils # Man Lymphocytes # (Manual) Eosinophils # (Manual) Basophils # (Manual) Percent Retic PT INR Fibrinogen D-Dimer ABG pH POC ABG pCO2 POC ABG pO2 ABG pO2 ABG HCO3 ABG O2 Saturation ABG Base Excess ABG Hemoglobin ABG Oxyhemoglobin ABG Sodium ABG Potassium ABG Chloride ABG Glucose Oxyhemoglobin Carboxyhemoglobin Sodium Potassium Chloride Carbon Dioxide BUN 61 H Creatinine 7.7 H Glucose 148 H POC Glucose 123 H Hemoglobin A1c Calcium Phosphorus Magnesium AST ALT Alkaline Phosphatase Lactate Dehydrogenase C-Reactive Protein Total Protein Albumin Triglycerides Arterial Blood Glucose Arterial Blood Ionized Calcium Urine Creatinine Random Vancomycin Coronavirus (PCR) Crossmatch 03/28/21 03/28/21 03/28/21 17:33 21:08 23:38 WBC RBC Hgb Hct MCH MCHC RDW Plt Count Lymph % (Auto) [place] # (Auto) Eos # (Auto) Seg Neutrophils % Eosinophils % (Manual) Basophils % (Manual) Seg Neutrophils # Seg Neutrophils # Man Lymphocytes # (Manual) Eosinophils # (Manual) Basophils # (Manual) Percent Retic PT INR Fibrinogen D-Dimer ABG pH POC ABG pCO2 POC ABG pO2 80.5 L ABG pO2 ABG HCO3 ABG O2 Saturation ABG Base Excess ABG Hemoglobin 9.5 L ABG Oxyhemoglobin ABG Sodium 133.3 L ABG Potassium ABG Chloride ABG Glucose 134 H Oxyhemoglobin Carboxyhemoglobin 0.3 L Sodium Potassium Chloride Carbon Dioxide BUN Creatinine Glucose POC Glucose 128 H 112 H Hemoglobin A1c Calcium Phosphorus Magnesium AST ALT Alkaline Phosphatase Lactate Dehydrogenase C-Reactive Protein Total Protein Albumin Triglycerides Arterial Blood Glucose 134 H Arterial Blood Ionized Calcium Urine Creatinine Random Vancomycin Coronavirus (PCR) Crossmatch 03/29/21 03/29/21 03/29/21 04:45 04:45 04:45 WBC 17.5 H RBC 3.15 L Hgb 8.8 L Hct 27.2 L MCH MCHC RDW 17.9 H Plt Count 132 L Lymph % (Auto) [place] # (Auto) Eos # (Auto) Seg Neutrophils % Eosinophils % (Manual) Basophils % (Manual) Seg Neutrophils # Seg Neutrophils # Man Lymphocytes # (Manual) Eosinophils # (Manual) Basophils # (Manual) Percent Retic PT INR Fibrinogen D-Dimer ABG pH POC ABG pCO2 POC ABG pO2 ABG pO2 ABG HCO3 ABG O2 Saturation ABG Base Excess ABG Hemoglobin ABG Oxyhemoglobin ABG Sodium ABG Potassium ABG Chloride ABG Glucose Oxyhemoglobin Carboxyhemoglobin Sodium Potassium Chloride 97.7 L Carbon Dioxide 21 L BUN 78 H Creatinine 9.5 H Glucose 132 H POC Glucose Hemoglobin A1c Calcium Phosphorus Magnesium AST ALT Alkaline Phosphatase Lactate Dehydrogenase C-Reactive Protein Total Protein Albumin 2.2 L Triglycerides 385 H Arterial Blood Glucose Arterial Blood Ionized Calcium Urine Creatinine Random Vancomycin Coronavirus (PCR) Crossmatch 03/29/21 03/29/21 03/29/21 11:35 16:50 21:06 WBC RBC Hgb Hct MCH MCHC RDW Plt Count Lymph % (Auto) [place] # (Auto) Eos # (Auto) Seg Neutrophils % Eosinophils % (Manual) Basophils % (Manual) Seg Neutrophils # Seg Neutrophils # Man Lymphocytes # (Manual) Eosinophils # (Manual) Basophils # (Manual) Percent Retic PT INR Fibrinogen D-Dimer ABG pH POC ABG pCO2 POC ABG pO2 ABG pO2 64.9 L ABG HCO3 ABG O2 Saturation ABG Base Excess -5.2 L ABG Hemoglobin ABG Oxyhemoglobin ABG Sodium ABG Potassium ABG Chloride ABG Glucose Oxyhemoglobin 85.1 L Carboxyhemoglobin Sodium Potassium Chloride Carbon Dioxide BUN Creatinine Glucose POC Glucose 148 H 133 H Hemoglobin A1c Calcium Phosphorus Magnesium AST ALT Alkaline Phosphatase Lactate Dehydrogenase C-Reactive Protein Total Protein Albumin Triglycerides Arterial Blood Glucose Arterial Blood Ionized Calcium Urine Creatinine Random Vancomycin Coronavirus (PCR) Crossmatch 03/29/21 03/30/21 03/30/21 Unknown 00:13 04:00 WBC 15.7 H RBC 3.18 L Hgb 8.6 L Hct 27.3 L MCH 27 L MCHC RDW 18.0 H Plt Count 86 L Lymph % (Auto) [place] # (Auto) Eos # (Auto) Seg Neutrophils % Eosinophils % (Manual) Basophils % (Manual) Seg Neutrophils # Seg Neutrophils # Man Lymphocytes # (Manual) Eosinophils # (Manual) Basophils # (Manual) Percent Retic PT INR Fibrinogen D-Dimer ABG pH 7.258 L POC ABG pCO2 POC ABG pO2 ABG pO2 ABG HCO3 ABG O2 Saturation ABG Base Excess -4.9 L ABG Hemoglobin 8.8 L ABG Oxyhemoglobin ABG Sodium ABG Potassium ABG Chloride ABG Glucose Oxyhemoglobin 93.9 L Carboxyhemoglobin Sodium Potassium Chloride Carbon Dioxide BUN Creatinine Glucose POC Glucose 129 H Hemoglobin A1c Calcium Phosphorus Magnesium AST ALT Alkaline Phosphatase Lactate Dehydrogenase C-Reactive Protein Total Protein Albumin Triglycerides Arterial Blood Glucose Arterial Blood Ionized Calcium Urine Creatinine Random Vancomycin Coronavirus (PCR) Crossmatch 03/30/21 03/30/21 03/30/21 04:00 04:00 06:02 WBC RBC Hgb Hct MCH MCHC RDW Plt Count Lymph % (Auto) [place] # (Auto) Eos # (Auto) Seg Neutrophils % Eosinophils % (Manual) Basophils % (Manual) Seg Neutrophils # Seg Neutrophils # Man Lymphocytes # (Manual) Eosinophils # (Manual) Basophils # (Manual) Percent Retic PT INR Fibrinogen D-Dimer 2607.12 H ABG pH POC ABG pCO2 POC ABG pO2 ABG pO2 ABG HCO3 ABG O2 Saturation ABG Base Excess ABG Hemoglobin ABG Oxyhemoglobin ABG Sodium ABG Potassium ABG Chloride ABG Glucose Oxyhemoglobin Carboxyhemoglobin Sodium 133 L Potassium 5.2 H D Chloride 91.5 L Carbon Dioxide 18 L BUN 101 H Creatinine 10.6 H Glucose 149 H POC Glucose 130 H Hemoglobin A1c Calcium Phosphorus 10.30 H Magnesium AST ALT Alkaline Phosphatase Lactate Dehydrogenase C-Reactive Protein 21.50 H Total Protein Albumin Triglycerides Arterial Blood Glucose Arterial Blood Ionized Calcium Urine Creatinine Random Vancomycin Coronavirus (PCR) Crossmatch 03/30/21 03/30/21 03/30/21 10:36 11:48 17:20 WBC RBC Hgb Hct MCH MCHC RDW Plt Count Lymph % (Auto) [place] # (Auto) Eos # (Auto) Seg Neutrophils % Eosinophils % (Manual) Basophils % (Manual) Seg Neutrophils # Seg Neutrophils # Man Lymphocytes # (Manual) Eosinophils # (Manual) Basophils # (Manual) Percent Retic PT INR Fibrinogen D-Dimer ABG pH 7.224 L POC ABG pCO2 49.1 H POC ABG pO2 61.5 L ABG pO2 ABG HCO3 ABG O2 Saturation ABG Base Excess ABG Hemoglobin 10.2 L ABG Oxyhemoglobin 86.2 L ABG Sodium 129.6 L ABG Potassium 5.4 H ABG Chloride 96.0 L ABG Glucose 161 H Oxyhemoglobin Carboxyhemoglobin Sodium Potassium Chloride Carbon Dioxide BUN Creatinine Glucose POC Glucose 163 H 130 H Hemoglobin A1c Calcium Phosphorus Magnesium AST ALT Alkaline Phosphatase Lactate Dehydrogenase C-Reactive Protein Total Protein Albumin Triglycerides Arterial Blood Glucose 161 H Arterial Blood Ionized Calcium 4.4 L Urine Creatinine Random Vancomycin Coronavirus (PCR) Crossmatch 03/30/21 03/31/21 03/31/21 23:49 00:28 05:20 WBC 17.3 H RBC 2.99 L Hgb 8.2 L Hct 25.3 L MCH 27 L MCHC RDW 18.3 H Plt Count 126 L Lymph % (Auto) [place] # (Auto) Eos # (Auto) Seg Neutrophils % Eosinophils % (Manual) Basophils % (Manual) Seg Neutrophils # Seg Neutrophils # Man Lymphocytes # (Manual) Eosinophils # (Manual) Basophils # (Manual) Percent Retic PT INR Fibrinogen D-Dimer ABG pH 7.249 L POC ABG pCO2 POC ABG pO2 77.7 L ABG pO2 ABG HCO3 ABG O2 Saturation ABG Base Excess ABG Hemoglobin 9.0 L ABG Oxyhemoglobin 92.9 L ABG Sodium 130.4 L ABG Potassium 4.7 H ABG Chloride ABG Glucose 166 H Oxyhemoglobin Carboxyhemoglobin 0.4 L Sodium Potassium Chloride Carbon Dioxide BUN Creatinine Glucose POC Glucose 143 H Hemoglobin A1c Calcium Phosphorus Magnesium AST ALT Alkaline Phosphatase Lactate Dehydrogenase C-Reactive Protein Total Protein Albumin Triglycerides Arterial Blood Glucose 166 H Arterial Blood Ionized Calcium 4.3 L Urine Creatinine Random Vancomycin Coronavirus (PCR) Crossmatch 03/31/21 03/31/21 03/31/21 05:20 06:18 09:44 WBC RBC Hgb Hct MCH MCHC RDW Plt Count Lymph % (Auto) [place] # (Auto) Eos # (Auto) Seg Neutrophils % Eosinophils % (Manual) Basophils % (Manual) Seg Neutrophils # Seg Neutrophils # Man Lymphocytes # (Manual) Eosinophils # (Manual) Basophils # (Manual) Percent Retic PT INR Fibrinogen D-Dimer ABG pH 7.247 L POC ABG pCO2 POC ABG pO2 ABG pO2 ABG HCO3 ABG O2 Saturation 94.4 L ABG Base Excess -5.1 L ABG Hemoglobin 8.2 L ABG Oxyhemoglobin ABG Sodium ABG Potassium ABG Chloride ABG Glucose Oxyhemoglobin 92.4 L Carboxyhemoglobin Sodium Potassium Chloride Carbon Dioxide BUN Creatinine Glucose POC Glucose 155 H Hemoglobin A1c Calcium Phosphorus 8.20 H D Magnesium AST ALT Alkaline Phosphatase Lactate Dehydrogenase C-Reactive Protein Total Protein Albumin Triglycerides Arterial Blood Glucose Arterial Blood Ionized Calcium Urine Creatinine Random Vancomycin Coronavirus (PCR) Crossmatch 03/31/21 03/31/21 03/31/21 09:49 09:55 09:55 WBC RBC Hgb Hct MCH MCHC RDW Plt Count Lymph % (Auto) [place] # (Auto) Eos # (Auto) Seg Neutrophils % Eosinophils % (Manual) Basophils % (Manual) Seg Neutrophils # Seg Neutrophils # Man Lymphocytes # (Manual) Eosinophils # (Manual) Basophils # (Manual) Percent Retic 4.52 H PT 16.5 H INR 1.20 H Fibrinogen D-Dimer ABG pH POC ABG pCO2 POC ABG pO2 ABG pO2 ABG HCO3 ABG O2 Saturation ABG Base Excess ABG Hemoglobin ABG Oxyhemoglobin ABG Sodium ABG Potassium ABG Chloride ABG Glucose Oxyhemoglobin Carboxyhemoglobin Sodium 133 L Potassium Chloride 92.8 L Carbon Dioxide 20 L BUN 87 H Creatinine 8.9 H Glucose 177 H POC Glucose Hemoglobin A1c Calcium 8.2 L Phosphorus Magnesium AST 169 H ALT Alkaline Phosphatase 187 H Lactate Dehydrogenase C-Reactive Protein Total Protein Albumin 2.3 L Triglycerides Arterial Blood Glucose Arterial Blood Ionized Calcium Urine Creatinine Random Vancomycin Coronavirus (PCR) Crossmatch 03/31/21 03/31/21 03/31/21 09:55 09:55 11:25 WBC RBC Hgb Hct MCH MCHC RDW Plt Count Lymph % (Auto) [place] # (Auto) Eos # (Auto) Seg Neutrophils % Eosinophils % (Manual) Basophils % (Manual) Seg Neutrophils # Seg Neutrophils # Man Lymphocytes # (Manual) Eosinophils # (Manual) Basophils # (Manual) Percent Retic PT INR Fibrinogen 491 H D-Dimer ABG pH POC ABG pCO2 POC ABG pO2 ABG pO2 ABG HCO3 ABG O2 Saturation ABG Base Excess ABG Hemoglobin ABG Oxyhemoglobin ABG Sodium ABG Potassium ABG Chloride ABG Glucose Oxyhemoglobin Carboxyhemoglobin Sodium Potassium Chloride Carbon Dioxide BUN Creatinine Glucose POC Glucose 178 H Hemoglobin A1c Calcium Phosphorus Magnesium AST ALT Alkaline Phosphatase Lactate Dehydrogenase 509 H C-Reactive Protein Total Protein Albumin Triglycerides Arterial Blood Glucose Arterial Blood Ionized Calcium Urine Creatinine Random Vancomycin Coronavirus (PCR) Crossmatch 03/31/21 03/31/21 03/31/21 12:30 17:40 21:00 WBC RBC Hgb Hct MCH MCHC RDW Plt Count Lymph % (Auto) [place] # (Auto) Eos # (Auto) Seg Neutrophils % Eosinophils % (Manual) Basophils % (Manual) Seg Neutrophils # Seg Neutrophils # Man Lymphocytes # (Manual) Eosinophils # (Manual) Basophils # (Manual) Percent Retic PT INR Fibrinogen D-Dimer ABG pH 7.235 L 7.216 L POC ABG pCO2 POC ABG pO2 ABG pO2 76.8 L 113.9 H ABG HCO3 ABG O2 Saturation 93.2 L ABG Base Excess -5.3 L -7.3 L ABG Hemoglobin 6.3 L 8.0 L ABG Oxyhemoglobin ABG Sodium ABG Potassium ABG Chloride ABG Glucose Oxyhemoglobin 91.1 L Carboxyhemoglobin Sodium Potassium Chloride Carbon Dioxide BUN Creatinine Glucose POC Glucose 245 H Hemoglobin A1c Calcium Phosphorus Magnesium AST ALT Alkaline Phosphatase Lactate Dehydrogenase C-Reactive Protein Total Protein Albumin Triglycerides Arterial Blood Glucose Arterial Blood Ionized Calcium Urine Creatinine Random Vancomycin Coronavirus (PCR) Crossmatch 04/01/21 04/01/21 04/01/21 00:11 05:09 08:25 WBC RBC Hgb Hct MCH MCHC RDW Plt Count Lymph % (Auto) [place] # (Auto) Eos # (Auto) Seg Neutrophils % Eosinophils % (Manual) Basophils % (Manual) Seg Neutrophils # Seg Neutrophils # Man Lymphocytes # (Manual) Eosinophils # (Manual) Basophils # (Manual) Percent Retic PT INR Fibrinogen D-Dimer ABG pH 7.225 L POC ABG pCO2 POC ABG pO2 ABG pO2 76.4 L ABG HCO3 ABG O2 Saturation 92.2 L ABG Base Excess -7.6 L ABG Hemoglobin 7.3 L ABG Oxyhemoglobin ABG Sodium ABG Potassium ABG Chloride ABG Glucose Oxyhemoglobin 90.2 L Carboxyhemoglobin Sodium Potassium Chloride Carbon Dioxide BUN Creatinine Glucose POC Glucose 209 H 173 H Hemoglobin A1c Calcium Phosphorus Magnesium AST ALT Alkaline Phosphatase Lactate Dehydrogenase C-Reactive Protein Total Protein Albumin Triglycerides Arterial Blood Glucose Arterial Blood Ionized Calcium Urine Creatinine Random Vancomycin Coronavirus (PCR) Crossmatch 04/01/21 04/01/21 04/01/21 12:01 12:05 17:55 WBC RBC Hgb Hct MCH MCHC RDW Plt Count Lymph % (Auto) [place] # (Auto) Eos # (Auto) Seg Neutrophils % Eosinophils % (Manual) Basophils % (Manual) Seg Neutrophils # Seg Neutrophils # Man Lymphocytes # (Manual) Eosinophils # (Manual) Basophils # (Manual) Percent Retic PT INR Fibrinogen D-Dimer ABG pH POC ABG pCO2 POC ABG pO2 ABG pO2 ABG HCO3 ABG O2 Saturation ABG Base Excess ABG Hemoglobin ABG Oxyhemoglobin ABG Sodium ABG Potassium ABG Chloride ABG Glucose Oxyhemoglobin Carboxyhemoglobin Sodium Potassium 5.9 H Chloride Carbon Dioxide BUN Creatinine Glucose POC Glucose 202 H 217 H Hemoglobin A1c Calcium Phosphorus Magnesium AST ALT Alkaline Phosphatase Lactate Dehydrogenase C-Reactive Protein Total Protein Albumin Triglycerides Arterial Blood Glucose Arterial Blood Ionized Calcium Urine Creatinine Random Vancomycin Coronavirus (PCR) Crossmatch 04/01/21 04/01/21 04/01/21 Unknown Unknown 23:59 WBC 27.2 H RBC 3.08 L Hgb 8.4 L Hct 26.0 L MCH 27 L MCHC RDW 18.5 H Plt Count Lymph % (Auto) [place] # (Auto) Eos # (Auto) Seg Neutrophils % Eosinophils % (Manual) Basophils % (Manual) Seg Neutrophils # Seg Neutrophils # Man Lymphocytes # (Manual) Eosinophils # (Manual) Basophils # (Manual) Percent Retic PT INR Fibrinogen D-Dimer ABG pH POC ABG pCO2 POC ABG pO2 ABG pO2 ABG HCO3 ABG O2 Saturation ABG Base Excess ABG Hemoglobin ABG Oxyhemoglobin ABG Sodium ABG Potassium ABG Chloride ABG Glucose Oxyhemoglobin Carboxyhemoglobin Sodium 132 L Potassium 6.6 H* D Chloride 91.3 L Carbon Dioxide 17 L BUN 104 H Creatinine 9.3 H Glucose 199 H POC Glucose 172 H Hemoglobin A1c Calcium 8.3 L Phosphorus Magnesium AST 236 H ALT 93 H Alkaline Phosphatase 191 H Lactate Dehydrogenase C-Reactive Protein Total Protein Albumin 2.4 L Triglycerides Arterial Blood Glucose Arterial Blood Ionized Calcium Urine Creatinine Random Vancomycin Coronavirus (PCR) Crossmatch 04/02/21 04/02/21 04/02/21 04:00 04:00 05:00 WBC 31.0 H RBC 2.93 L Hgb 8.0 L Hct 24.7 L MCH 27 L MCHC RDW 19.2 H Plt Count 131 L Lymph % (Auto) [place] # (Auto) Eos # (Auto) Seg Neutrophils % Eosinophils % (Manual) Basophils % (Manual) Seg Neutrophils # Seg Neutrophils # Man Lymphocytes # (Manual) Eosinophils # (Manual) Basophils # (Manual) Percent Retic PT 16.0 H INR 1.16 H Fibrinogen D-Dimer ABG pH POC ABG pCO2 POC ABG pO2 ABG pO2 ABG HCO3 ABG O2 Saturation ABG Base Excess ABG Hemoglobin ABG Oxyhemoglobin ABG Sodium ABG Potassium ABG Chloride ABG Glucose Oxyhemoglobin Carboxyhemoglobin Sodium 135 L Potassium 5.3 H Chloride 96.1 L Carbon Dioxide 18 L BUN 80 H Creatinine 6.8 H Glucose 174 H POC Glucose Hemoglobin A1c Calcium 7.7 L Phosphorus Magnesium AST 106 H ALT 60 H Alkaline Phosphatase Lactate Dehydrogenase C-Reactive Protein Total Protein 5.9 L Albumin 3.5 L Triglycerides 579 H Arterial Blood Glucose Arterial Blood Ionized Calcium Urine Creatinine Random Vancomycin Coronavirus (PCR) Crossmatch 04/02/21 04/02/21 04/02/21 05:09 08:55 11:06 WBC RBC Hgb Hct MCH MCHC RDW Plt Count Lymph % (Auto) [place] # (Auto) Eos # (Auto) Seg Neutrophils % Eosinophils % (Manual) Basophils % (Manual) Seg Neutrophils # Seg Neutrophils # Man Lymphocytes # (Manual) Eosinophils # (Manual) Basophils # (Manual) Percent Retic PT INR Fibrinogen D-Dimer ABG pH 7.188 L POC ABG pCO2 58.3 H POC ABG pO2 132.8 H ABG pO2 ABG HCO3 ABG O2 Saturation ABG Base Excess ABG Hemoglobin 8.4 L ABG Oxyhemoglobin ABG Sodium ABG Potassium 5.0 H ABG Chloride 97.0 L ABG Glucose 156 H Oxyhemoglobin Carboxyhemoglobin 0.4 L Sodium Potassium Chloride Carbon Dioxide BUN Creatinine Glucose POC Glucose 148 H 167 H Hemoglobin A1c Calcium Phosphorus Magnesium AST ALT Alkaline Phosphatase Lactate Dehydrogenase C-Reactive Protein Total Protein Albumin Triglycerides Arterial Blood Glucose 156 H Arterial Blood Ionized Calcium 4.2 L Urine Creatinine Random Vancomycin Coronavirus (PCR) Crossmatch 04/02/21 04/02/21 04/03/21 17:57 20:40 00:28 WBC RBC Hgb Hct MCH MCHC RDW Plt Count Lymph % (Auto) [place] # (Auto) Eos # (Auto) Seg Neutrophils % Eosinophils % (Manual) Basophils % (Manual) Seg Neutrophils # Seg Neutrophils # Man Lymphocytes # (Manual) Eosinophils # (Manual) Basophils # (Manual) Percent Retic PT INR Fibrinogen D-Dimer ABG pH POC ABG pCO2 POC ABG pO2 ABG pO2 111.9 H ABG HCO3 18.9 L ABG O2 Saturation ABG Base Excess -9.9 L ABG Hemoglobin ABG Oxyhemoglobin ABG Sodium ABG Potassium ABG Chloride ABG Glucose Oxyhemoglobin Carboxyhemoglobin Sodium Potassium Chloride Carbon Dioxide BUN Creatinine Glucose POC Glucose 205 H 217 H Hemoglobin A1c Calcium Phosphorus Magnesium AST ALT Alkaline Phosphatase Lactate Dehydrogenase C-Reactive Protein Total Protein Albumin Triglycerides Arterial Blood Glucose Arterial Blood Ionized Calcium Urine Creatinine Random Vancomycin Coronavirus (PCR) Crossmatch 04/03/21 04/03/21 04/03/21 03:39 04:30 04:30 WBC 31.1 H RBC 2.78 L Hgb 8.0 L Hct 24.0 L MCH MCHC RDW 19.0 H Plt Count Lymph % (Auto) [place] # (Auto) Eos # (Auto) Seg Neutrophils % Eosinophils % (Manual) 27.0 H Basophils % (Manual) 2.0 H Seg Neutrophils # Seg Neutrophils # Man 13.7 H Lymphocytes # (Manual) 8.4 H Eosinophils # (Manual) 8.4 H Basophils # (Manual) 0.6 H Percent Retic PT INR Fibrinogen D-Dimer ABG pH POC ABG pCO2 POC ABG pO2 ABG pO2 ABG HCO3 ABG O2 Saturation ABG Base Excess ABG Hemoglobin ABG Oxyhemoglobin ABG Sodium ABG Potassium ABG Chloride ABG Glucose Oxyhemoglobin Carboxyhemoglobin Sodium 132 L Potassium 5.8 H Chloride 94.5 L Carbon Dioxide 16 L BUN 97 H Creatinine 7.7 H Glucose 230 H POC Glucose 201 H Hemoglobin A1c Calcium 7.6 L Phosphorus Magnesium AST 47 H ALT Alkaline Phosphatase 146 H Lactate Dehydrogenase C-Reactive Protein Total Protein 5.2 L Albumin 3.4 L Triglycerides Arterial Blood Glucose Arterial Blood Ionized Calcium Urine Creatinine Random Vancomycin Coronavirus (PCR) Crossmatch 04/03/21 04/03/21 04/03/21 04:30 08:31 11:29 WBC RBC Hgb Hct MCH MCHC RDW Plt Count Lymph % (Auto) [place] # (Auto) Eos # (Auto) Seg Neutrophils % Eosinophils % (Manual) Basophils % (Manual) Seg Neutrophils # Seg Neutrophils # Man Lymphocytes # (Manual) Eosinophils # (Manual) Basophils # (Manual) Percent Retic PT INR Fibrinogen D-Dimer ABG pH 7.195 L* POC ABG pCO2 POC ABG pO2 ABG pO2 102.6 H ABG HCO3 ABG O2 Saturation ABG Base Excess -7.2 L ABG Hemoglobin 8.0 L ABG Oxyhemoglobin ABG Sodium ABG Potassium ABG Chloride ABG Glucose Oxyhemoglobin 94.7 L Carboxyhemoglobin Sodium Potassium Chloride Carbon Dioxide BUN Creatinine Glucose POC Glucose 230 H Hemoglobin A1c Calcium Phosphorus 10.30 H Magnesium AST ALT Alkaline Phosphatase Lactate Dehydrogenase C-Reactive Protein Total Protein Albumin Triglycerides Arterial Blood Glucose Arterial Blood Ionized Calcium Urine Creatinine Random Vancomycin Coronavirus (PCR) Crossmatch 04/03/21 04/03/21 04/04/21 16:53 20:45 05:00 WBC 28.8 H RBC 2.64 L Hgb 8.7 L Hct 22.2 L MCH 33 H MCHC 39 H* RDW 18.6 H Plt Count Lymph % (Auto) [place] # (Auto) Eos # (Auto) Seg Neutrophils % Eosinophils % (Manual) Basophils % (Manual) Seg Neutrophils # Seg Neutrophils # Man Lymphocytes # (Manual) Eosinophils # (Manual) Basophils # (Manual) Percent Retic PT INR Fibrinogen D-Dimer ABG pH POC ABG pCO2 POC ABG pO2 ABG pO2 ABG HCO3 ABG O2 Saturation ABG Base Excess ABG Hemoglobin ABG Oxyhemoglobin ABG Sodium ABG Potassium ABG Chloride ABG Glucose Oxyhemoglobin 94.8 L Carboxyhemoglobin Sodium Potassium Chloride Carbon Dioxide BUN Creatinine Glucose POC Glucose 227 H Hemoglobin A1c Calcium Phosphorus Magnesium AST ALT Alkaline Phosphatase Lactate Dehydrogenase C-Reactive Protein Total Protein Albumin Triglycerides Arterial Blood Glucose Arterial Blood Ionized Calcium Urine Creatinine Random Vancomycin Coronavirus (PCR) Crossmatch 04/04/21 04/04/21 04/04/21 05:29 07:55 09:20 WBC RBC Hgb Hct MCH MCHC RDW Plt Count Lymph % (Auto) [place] # (Auto) Eos # (Auto) Seg Neutrophils % Eosinophils % (Manual) Basophils % (Manual) Seg Neutrophils # Seg Neutrophils # Man Lymphocytes # (Manual) Eosinophils # (Manual) Basophils # (Manual) Percent Retic PT INR Fibrinogen D-Dimer ABG pH POC ABG pCO2 POC ABG pO2 ABG pO2 ABG HCO3 ABG O2 Saturation ABG Base Excess ABG Hemoglobin ABG Oxyhemoglobin ABG Sodium ABG Potassium ABG Chloride ABG Glucose Oxyhemoglobin Carboxyhemoglobin Sodium 133 L Potassium Chloride 91.0 L Carbon Dioxide 20 L BUN 75 H Creatinine 4.7 H Glucose 184 H POC Glucose 133 H Hemoglobin A1c Calcium 7.3 L Phosphorus Magnesium AST < 5 L ALT < 5 L Alkaline Phosphatase 200 H Lactate Dehydrogenase C-Reactive Protein Total Protein 5.6 L Albumin 2.9 L Triglycerides Arterial Blood Glucose Arterial Blood Ionized Calcium Urine Creatinine Random Vancomycin Coronavirus (PCR) Crossmatch See Detail 04/04/21 04/04/21 04/04/21 12:01 14:06 17:05 WBC RBC Hgb Hct MCH MCHC RDW Plt Count Lymph % (Auto) [place] # (Auto) Eos # (Auto) Seg Neutrophils % Eosinophils % (Manual) Basophils % (Manual) Seg Neutrophils # Seg Neutrophils # Man Lymphocytes # (Manual) Eosinophils # (Manual) Basophils # (Manual) Percent Retic PT INR Fibrinogen D-Dimer ABG pH 7.162 L* POC ABG pCO2 POC ABG pO2 ABG pO2 91.3 H ABG HCO3 ABG O2 Saturation 94.8 L ABG Base Excess -4.0 L ABG Hemoglobin 7.6 L ABG Oxyhemoglobin ABG Sodium ABG Potassium ABG Chloride ABG Glucose Oxyhemoglobin 92.4 L Carboxyhemoglobin Sodium Potassium Chloride Carbon Dioxide BUN Creatinine Glucose POC Glucose 199 H 166 H Hemoglobin A1c Calcium Phosphorus Magnesium AST ALT Alkaline Phosphatase Lactate Dehydrogenase C-Reactive Protein Total Protein Albumin Triglycerides Arterial Blood Glucose Arterial Blood Ionized Calcium Urine Creatinine Random Vancomycin Coronavirus (PCR) Crossmatch 04/04/21 04/04/21 04/05/21 21:14 23:30 05:20 WBC RBC Hgb Hct MCH MCHC RDW Plt Count Lymph % (Auto) [place] # (Auto) Eos # (Auto) Seg Neutrophils % Eosinophils % (Manual) Basophils % (Manual) Seg Neutrophils # Seg Neutrophils # Man Lymphocytes # (Manual) Eosinophils # (Manual) Basophils # (Manual) Percent Retic PT INR Fibrinogen D-Dimer ABG pH 7.257 L POC ABG pCO2 POC ABG pO2 ABG pO2 73.8 L ABG HCO3 ABG O2 Saturation 91.6 L ABG Base Excess -2.7 L ABG Hemoglobin 8.6 L ABG Oxyhemoglobin ABG Sodium ABG Potassium ABG Chloride ABG Glucose Oxyhemoglobin 89.1 L Carboxyhemoglobin Sodium 131 L Potassium Chloride 91.2 L Carbon Dioxide 17 L BUN 85 H Creatinine 5.1 H Glucose 183 H POC Glucose 158 H Hemoglobin A1c Calcium 7.4 L Phosphorus Magnesium AST ALT Alkaline Phosphatase 190 H Lactate Dehydrogenase 394 H C-Reactive Protein Total Protein 5.8 L Albumin 2.7 L Triglycerides Arterial Blood Glucose Arterial Blood Ionized Calcium Urine Creatinine Random Vancomycin Coronavirus (PCR) Crossmatch 04/05/21 04/05/21 04/05/21 05:20 05:20 05:24 WBC 30.8 H RBC 2.83 L Hgb 8.4 L Hct 24.4 L MCH MCHC 35 H RDW 18.9 H Plt Count Lymph % (Auto) [place] # (Auto) Eos # (Auto) Seg Neutrophils % Eosinophils % (Manual) Basophils % (Manual) Seg Neutrophils # Seg Neutrophils # Man Lymphocytes # (Manual) Eosinophils # (Manual) Basophils # (Manual) Percent Retic PT INR Fibrinogen D-Dimer ABG pH POC ABG pCO2 POC ABG pO2 ABG pO2 ABG HCO3 ABG O2 Saturation ABG Base Excess ABG Hemoglobin ABG Oxyhemoglobin ABG Sodium ABG Potassium ABG Chloride ABG Glucose Oxyhemoglobin Carboxyhemoglobin Sodium Potassium Chloride Carbon Dioxide BUN Creatinine Glucose POC Glucose 162 H Hemoglobin A1c Calcium Phosphorus 9.40 H Magnesium AST ALT Alkaline Phosphatase Lactate Dehydrogenase C-Reactive Protein Total Protein Albumin Triglycerides Arterial Blood Glucose Arterial Blood Ionized Calcium Urine Creatinine Random Vancomycin Coronavirus (PCR) Crossmatch 04/05/21 04/05/21 04/05/21 11:31 12:23 21:40 WBC RBC Hgb Hct MCH MCHC RDW Plt Count Lymph % (Auto) [place] # (Auto) Eos # (Auto) Seg Neutrophils % Eosinophils % (Manual) Basophils % (Manual) Seg Neutrophils # Seg Neutrophils # Man Lymphocytes # (Manual) Eosinophils # (Manual) Basophils # (Manual) Percent Retic PT INR Fibrinogen D-Dimer ABG pH 7.325 L POC ABG pCO2 POC ABG pO2 ABG pO2 65.6 L ABG HCO3 ABG O2 Saturation 91.2 L ABG Base Excess ABG Hemoglobin 6.7 L ABG Oxyhemoglobin ABG Sodium ABG Potassium ABG Chloride ABG Glucose Oxyhemoglobin 89.0 L Carboxyhemoglobin Sodium Potassium Chloride Carbon Dioxide BUN Creatinine Glucose POC Glucose 196 H 190 H Hemoglobin A1c Calcium Phosphorus Magnesium AST ALT Alkaline Phosphatase Lactate Dehydrogenase C-Reactive Protein Total Protein Albumin Triglycerides Arterial Blood Glucose Arterial Blood Ionized Calcium Urine Creatinine Random Vancomycin Coronavirus (PCR) Crossmatch 04/05/21 04/06/21 04/06/21 23:53 05:35 06:00 WBC RBC Hgb Hct MCH MCHC RDW Plt Count Lymph % (Auto) [place] # (Auto) Eos # (Auto) Seg Neutrophils % Eosinophils % (Manual) Basophils % (Manual) Seg Neutrophils # Seg Neutrophils # Man Lymphocytes # (Manual) Eosinophils # (Manual) Basophils # (Manual) Percent Retic PT INR Fibrinogen D-Dimer ABG pH POC ABG pCO2 POC ABG pO2 ABG pO2 ABG HCO3 ABG O2 Saturation ABG Base Excess ABG Hemoglobin ABG Oxyhemoglobin ABG Sodium ABG Potassium ABG Chloride ABG Glucose Oxyhemoglobin Carboxyhemoglobin Sodium 132 L Potassium Chloride 90.7 L Carbon Dioxide 21 L BUN 74 H Creatinine 4.3 H Glucose 156 H POC Glucose 192 H 139 H Hemoglobin A1c Calcium 7.9 L Phosphorus 6.90 H D Magnesium AST < 5 L ALT < 5 L Alkaline Phosphatase 185 H Lactate Dehydrogenase C-Reactive Protein Total Protein 5.7 L Albumin 2.5 L Triglycerides Arterial Blood Glucose Arterial Blood Ionized Calcium Urine Creatinine Random Vancomycin Coronavirus (PCR) Crossmatch 04/06/21 06:00 WBC 26.7 H RBC 2.39 L Hgb 6.9 L Hct 20.1 L MCH MCHC RDW 18.7 H Plt Count Lymph % (Auto) [place] # (Auto) Eos # (Auto) Seg Neutrophils % Eosinophils % (Manual) Basophils % (Manual) Seg Neutrophils # Seg Neutrophils # Man Lymphocytes # (Manual) Eosinophils # (Manual) Basophils # (Manual) Percent Retic PT INR Fibrinogen D-Dimer ABG pH POC ABG pCO2 POC ABG pO2 ABG pO2 ABG HCO3 ABG O2 Saturation ABG Base Excess ABG Hemoglobin ABG Oxyhemoglobin ABG Sodium ABG Potassium ABG Chloride ABG Glucose Oxyhemoglobin Carboxyhemoglobin Sodium Potassium Chloride Carbon Dioxide BUN Creatinine Glucose POC Glucose Hemoglobin A1c Calcium Phosphorus Magnesium AST ALT Alkaline Phosphatase Lactate Dehydrogenase C-Reactive Protein Total Protein Albumin Triglycerides Arterial Blood Glucose Arterial Blood Ionized Calcium Urine Creatinine Random Vancomycin Coronavirus (PCR) Crossmatch Allied health notes reviewed: nursing
[2021-04-06] MEDS ORDERED: QUEtiapine 100 MG TAB PO STA (11:42)
[2021-04-06] MEDS ORDERED: QUEtiapine 200 MG TAB PO SCH (11:43)
[2021-04-06] MEDS: HYDROmorphone 1 MG/1 ML INJ IV PRN ×2 (11:47→17:01)
--- NOTE | 2021-04-06 13:02 | Progress Note ---
<ANCELMO GONZALEZ - Last Filed: 04/06/21 14:39> Assessment and Plan Assessment and plan: This is a 31-year-old female with asthma, morbid obesity and Crohn's disease admitted for Acute hypxemic respiratory failure 2/2 COVID PNA requiring ventilatory support and acute renal failure now on HD. Hospital Course to Date: 03/14/21- Patient is s/p intubation from this morning, sedated on propofol and fentanyl RASS -3 to -4. ETT above the clavicles advanced by 2cc. Continue nebs and IV steroids per [facility]. COVID swab pending. Hyperkalemia improved, X1 dose of kayaxalate ordered. Low BP and low urine output this am, fluid bolus challenge, 500cc of NS bolus given. Continue to monitor electrolytes and renal function, repeat BMP this afternoon. 03/15: Patient's renal function noted to be significantly worse today, patient was hyperkalemic and this was medically treated. Patient initiated on hemodi alysis today. infectious disease was consulted today. 03/16: No acute events reported overnight, patient received hemodialysis yesterday. Patient is currently on propofol and fentanyl. 03/17: Patient received hemodialysis today, patient is slightly acidotic on ABG however [facility] is allowing for permissive hypercapnia, tracheal aspirate with Staph aureus and ID is aware. 03/18: Patient is having high residuals today and Reglan was started, patient will receive HD daily per nephrology, correct her change in FiO2 as tolerated. 03/19: HD per nephrology today, antibiotics changed to cefazolin. Patient did not tolerate tube feedings as she had high residuals this morning and they were turned off. Not restarted yet. Updated family at bedside today 03/20: HD today, ddimer noted to be >1000, Tolerating trickle TF. Stat BLE dopplar US 03/21: Patient is not tolerating TF, CXR shows worsening infiltrates, [facility] made changes to vent, TF on hold and started on IVF. 03/22/21- Patient remains intubated and on sedation. Persistent vomiting, TF held overnight, no documented BM, on reglan BR added, Shaun citarte & supp. HD today. Plan to restart TF at 10ml/hr, will reevaluate in the am. Persistent thro mbocytopenia, Hep on hold, HIT panel ordered, PO eliquis initiated. 03/23/21- Patient remains on the vent and sedated on propofol and fentanyl RASS - 2 to -3. Possible SAT today as tolerated. Patient tolerated trickle feeds overnight, plan to advance TF by 10cc Q8 to 12hrs. Continue current BR and co ntinue reglan for now. Slightr worsening in acidosis from this am, d/w [facility] vent setting adjusted, will repeat ABG at 9pm. 03/24/21- Patient is on the vent and sedated, on fentanyl and propfol. Bilateral subconjunctival hemorrhage with periorbital edema noted this am, pupils are round and reactive, will Cipro/Dex [id number]. Worsening of kidney function from today's labs, plan for HD per Nephro. 03/25/21- Patient remains intubated and on sedatin, RASS 0 to -1, no longer on pressors. Sudden drop in H&H this am, bilateral subconjunctival hemorrhage with no sig change, no signs of any active bleeding. Patient appears neurologically intact, following commands, pupils are round and reactive with + gag and cough, moved all extremities. D/w [facility] patient is too unstable for CT at this time. Eliquis D/Devaughn, 1unit of PRBC ordered. Will continue to trend CBC. Plan for another section of HD today 03/26/21- Patient remains on the vent and sedated. VENICE reported from overnight. Plan for HD again today. H&H back up and stable, no AC at this time, SCDs for VTE phro. D/w [facility] patient is still too unstable for CT scan, will continue neuro exam and will continue to monitor H&H. 03/27/21- VENICE overnight. remains on the vent and sedated. Red localized rashes noted in patient upper chest and face, will r/o allergic reaction,CBC with auto diff and urine eosinophils ordered. Plan for HD today per Nephro. 03/28/21- Patient remains on the vent and sedated. Persistent fevers overnight unrelieved with antipyretic, currently on a cooling blanket. Back on pressors for hypotension, patient already on IV abx, last blood cultureX2 and sputum culture from 03/23 were negative. Continue IV abx, will reculture patient, orders placed for B.culture and sputum culture. ID is also on consult. will continue F/u on culture and continue to monitor BMP and CBC. 03/29: Patient restarted on prednisone given splotchy rash, will resume apixaban for VTE prophylaxis and repeat ABG at 9 PM. Remains with leukocytosis, elevated BUN/creatinine, elevated triglycerides and on Levophed 03/30: HD today, rash is still present and started on IV steroids. plt is low today but will continue to monitor. [facility] made changes to vent-> decrease in MV. ABG in the pm and possible punch biopsy tomorrow if rash is not improved. p ropofol changed to versed 03/31: Heme/oncology consulted yesterday, will start patient on plasmapheresis for possible HUS. Cefepime discontinued today as today was the last day. Patient started on pulse dose steroids of 1 g/day for 3 days. Some improvement noted to eyes this morning. Patient was febrile overnight and received ibuprofen overnight. Acetaminophen allergy confirmed with family, allergy is only to oxycodone and hydrocodone but not the acetaminophen component. Confirmed by family patient has no reaction to [id number] Tylenol. Remains on vasopressor support and sedated with fentanyl, propofol and Versed. Vent mode changed to pressure control ventilation. Patient started on Arctic sun for fever control. Mother updated over telephone this a.m. and this p.m. family meeting held with her mother, sister x 2 and brother and with 2 other unknown people over the phone (1 female and one male) and nurse. Family states that patient is likely to an antibiotic possibly penicillins. This information was not available to us before. 04/01: Hyperkalemia medically treated, patient scheduled for dialysis today, plasmapheresis for possible HUS scheduled for today, steroids should be ending tomorrow, generalized rash/discoloration minimally better. Patient still remains on Arctic sun for temperature regulation. Vent changes per [facility]. 04/02: remains on artic sun but water temp noted to be in the 30s today. Completed plasmapheresis x2 and is now on steroid taper however minimal change noted to rash/discoloration. Eyes are more clear today but remain red under lids (tops of eye). Acidosis noted on ABG. Hyperkalemia and hyperphosphatemeia persists. Sedation increased for RR in to the 40s-50s and vasopressors being titrated as tolerated. 04/04: Patient receiving 1 unit PRBC per heme's recommendation, increased respiratory effort noted, patient is acidotic on ABG and given 1 amp of bicarb in addition to bicarb drip, sedation increased for vent synchrony. No HD per nephrology given tachycardia. Seroquel started. 04/05: Patient on the vent and sedated, still on 3 pressors. Patient to wean off propofol gtt, seroquel increased. Patient afebrile overnight, however artic sun is still in place. Will attempt to take off the cooling blanket today, will continue to assess for fever curve. Continue current IV Abx therapy per ID. Plan for HD today per Nephro. Patient's family at the bedside, thoroughly discussed patient's condition and overall poor prognosis. All questions and concerns were addressed. Team will continue to f/u with family with further updates. 04/06: Patient remains sedated and on the vent, still on fent and versed, propofol was weaned off. Low Hbg this am, 2 units of PRBCs ordered. Patient febrile overnight, patient completed IV abx course, leukocytosis downtrending. c/f for possible drug fever vs DVT, BLE doppler reordered to R/O DVT. Patient remains on high dose pressors, wean pressors as tolerated for MAP of 65. Assessment and Plan #Neuro: Sedated - Intubated and sedated on fentanyl and versed, RASS -5 - Seroquel increased - Plan to wean off propofol, RASS goal of 0 to -3 - PRN EKG for QTC monitoring - Daily SAT and SBT per CCM - Avoid benzodiazepine to reduce the possibility of delirium - Prn analgesia for CPOT greater than 3 - Maintenance of sleep-wake cycle #CV: Tachycardia, s/p hypertension now with hypotension - Remains ST on the monitor - Remains on high dose pressors - Vasopressor support with levophed, vasopressin - Continue blood pressure monitor per protocol - Maintain MAP above 65 - Continue AC- Eliquis and SCDs for VTE proph #Respiratory: Acute hypoxic respiratory failure #asthma exacerbation #COVID-19 pneumonia/ARDS, #RUL PNA #Bronchospasm (resolved) - ETT on 03/14 - Vent setting: AC/PC- 50%,10,30,max PS60 - AM ABG noted - CCM consulted, appreciate recommendations - Continue IV Steroids and Nebs - Plan to taper steroids - VAP bundle addressed - Aspiration precaution HOB above 30 - Daily SBT and SAT trials as tolerated - Daily ABG and CXR per [facility] - Continue SPO2 monitoring for SPO2 goal above 92% #GI: transaminitis #h/o MO and Crohn's disease -Nutrition consulted, appreciate recommendations -Tube feeding: Nepro at goal -Free water 100 mL every 4 hours -Continue BR: Senokot -Continue PPI -BMS in place #: Acute kidney injury likely secondary to ATN #hyponatremia - Initial Scr was wnl - Scr as high as 10.8, 5.1 this am - Patient is now anuric - Nephrology consulted, appreciate recommendations - HD initiated 03/15 - Plan for DH today, possible 1L out is patient tolerate it - Daily weights - Strict intake and output - Avoid nephrotoxic medications; Renally dose medications - Continue IVF for now - Monitor and replace electrolytes as needed #ID: COVID-19 pneumonia #Leukocytosis - 03/14 COVID-19 PCR (+); - 03/14 tracheal aspirate with Staph aureus; 04/10 COVID PCR (-) - B.cultures are negative - WBCs back up, probably reactive; 26.7 this am - artic sun D/C, patient febrile overnight TMAX 101.5 - Patient completed IV Abx course - Patient received X1 dose of redemsevir, was D/C due to worsen renal function - S/p X1 dose actemra - Trend COVID-19 inflammatory markers - Isolation/droplet precautions - On Vitamin C/vitamin D/zinc - Daily CBC monitor -Infectious disease consulted, appreciate recommendations #Heme: Anemia #?HUS vs drug reaction #Conjunctival hemorrhage- resolved - s/p plasmapheresis x2 (04/01-04/02) - Hbg 6.9 this am, 2units of PRBCs ordered -Trend CBC -Transfuse hemoglobin less than 7 - Continue Eliquis, restarted on 03/29 - SCDs to bilateral lower extremity while in bed - 03/23 BLE duplex US shows no DVT - BLE doppler reordered - HIT negative #Endo: Hyperglycemia - Hemoglobin A1c 6.3 - SSI Q6hrs - Avoid hypoglycemia - While critically ill target blood glucose of 140-180 The high probability of a clinically significant, sudden or life threatening deterioration of the [multiple] system(s) required my full and direct attention, intervention and personal management. The aggregate critical care time was [60] minutes. This time is in addition to time spent performing reported procedures but includes the following: [x] Data Review and interpretation [x] Patient assessment and monitoring of vital signs [x] Documentation [x] Medication orders and management Disposition Plan: ICU Total Time Spent with Patient (Minutes): 60 History Interval history: Patient is seen and examined at the bedside. Patient remains on the vent and s edated on fent, and versed. RASS -5, pupils are round and reactive, with + cough and gag. Patient remains on high dose pressors, febrile overnight Hospitalist Physical - Constitutional Vitals: Temp Pulse Resp BP Pulse Ox 101.5 F H 120 H 41 H 103/53 95 04/06/21 12:30 04/06/21 12:30 04/06/21 12:30 04/06/21 12:30 04/06/21 12:30 General appearance: Present: no acute distress, well-nourished, obese, other (Intubated and sedated) - EENT Eyes: Present: PERRL - Neck Neck: Present: normal ROM - Respiratory Respiratory effort: labored Respiratory: bilateral: wheezing - Cardiovascular Rhythm: regular Heart Sounds: Present: S1 & S2 - Extremities Extremities: no ischemia, pulses intact, pulses symmetrical Extremity abnormal: edema - Peripheral Assessment Generalized Edema Type: Pitting Edema Degree: 3+ Capillary Refill: < 3 seconds Skin Temperature: Hot Peripheral Pulses: within normal limits - Abdominal General gastrointestinal: soft, non-tender, hypoactive bowel sounds - Integumentary Integumentary: Present: warm, dry, erythema - Psychiatric Psychiatric: other (Intubated and sedated) - Neurologic Neurologic: other (Intubated and sedated) - Allied Health Allied health notes reviewed: nursing Results - Labs CBC & Chem 7: 04/06/21 06:00 04/06/21 06:00 Labs: Laboratory Last Values WBC 26.7 K/mm3 (4.5-11.0) H 04/06/21 06:00 RBC 2.39 M/mm3 (3.65-5.03) L 04/06/21 06:00 Hgb 6.9 gm/dl (10.1-14.3) L 04/06/21 06:00 Hct 20.1 % (30.3-42.9) L 04/06/21 06:00 MCV 84 fl (79-97) 04/06/21 06:00 MCH 29 pg (28-32) 04/06/21 06:00 MCHC 34 % (30-34) 04/06/21 06:00 RDW 18.7 % (13.2-15.2) H 04/06/21 06:00 Plt Count 212 K/mm3 (140-440) 04/06/21 06:00 Lymph % (Auto) 10.7 % (13.4-35.0) L 03/28/21 09:37 [place] % (Auto) 5.2 % (0.0-7.3) 03/28/21 09:37 Eos % (Auto) Rn Palliative Care 04/03/21 04:30 Baso % (Auto) 0.2 % (0.0-1.8) 03/28/21 09:37 Lymph # (Auto) 1.7 K/mm3 (1.2-5.4) 03/28/21 09:37 [place] # (Auto) 0.9 K/mm3 (0.0-0.8) H 03/28/21 09:37 Eos # (Auto) 0.6 K/mm3 (0.0-0.4) H 03/28/21 09:37 Baso # (Auto) 0.0 K/mm3 (0.0-0.1) 03/28/21 09:37 Add Manual Diff Complete 04/03/21 04:30 Total Counted 100 04/03/21 04:30 Seg Neutrophils % 80.0 % (40.0-70.0) H 03/28/21 09:37 Seg Neuts % (Manual) 44.0 % (40.0-70.0) 04/03/21 04:30 Lymphocytes % (Manual) 27.0 % (13.4-35.0) 04/03/21 04:30 Eosinophils % (Manual) 27.0 % (0.0-4.3) H 04/03/21 04:30 Basophils % (Manual) 2.0 % (0.0-1.8) H 04/03/21 04:30 Nucleated RBC % Not Reportable 04/03/21 04:30 Seg Neutrophils # 13.0 K/mm3 (1.8-7.7) H 03/28/21 09:37 Seg Neutrophils # Man 13.7 K/mm3 (1.8-7.7) H 04/03/21 04:30 Band Neutrophils # 0.0 K/mm3 04/03/21 04:30 Lymphocytes # (Manual) 8.4 K/mm3 (1.2-5.4) H 04/03/21 04:30 Abs React Lymphs (Man) 0.0 K/mm3 04/03/21 04:30 Monocytes # (Manual) 0.0 K/mm3 (0.0-0.8) 04/03/21 04:30 Eosinophils # (Manual) 8.4 K/mm3 (0.0-0.4) H 04/03/21 04:30 Basophils # (Manual) 0.6 K/mm3 (0.0-0.1) H 04/03/21 04:30 Metamyelocytes # 0.0 K/mm3 04/03/21 04:30 Myelocytes # 0.0 K/mm3 04/03/21 04:30 Promyelocytes # 0.0 K/mm3 04/03/21 04:30 Blast Cells # 0.0 K/mm3 04/03/21 04:30 WBC Morphology Not Reportable 04/03/21 04:30 Hypersegmented Neuts Not Reportable 04/03/21 04:30 Hyposegmented Neuts Not Reportable 04/03/21 04:30 Hypogranular Neuts Not Reportable 04/03/21 04:30 Smudge Cells Not Reportable 04/03/21 04:30 Toxic Granulation Not Reportable 04/03/21 04:30 Toxic Vacuolation Not Reportable 04/03/21 04:30 Dohle Bodies Not Reportable 04/03/21 04:30 Pelger-Huet Anomaly Not Reportable 04/03/21 04:30 Bridgette Rods Not Reportable 04/03/21 04:30 Platelet Estimate Not Reportable 04/03/21 04:30 Clumped Platelets Not Reportable 04/03/21 04:30 Plt Clumps, EDTA Not Reportable 04/03/21 04:30 Large Platelets Not Reportable 04/03/21 04:30 Giant Platelets Not Reportable 04/03/21 04:30 Platelet Satelliting Not Reportable 04/03/21 04:30 Plt Morphology Comment Not Reportable 04/03/21 04:30 RBC Morphology Normal 04/03/21 04:30 Dimorphic RBCs Not Reportable 04/03/21 04:30 Polychromasia Not Reportable 04/03/21 04:30 Hypochromasia Not Reportable 04/03/21 04:30 Poikilocytosis Not Reportable 04/03/21 04:30 Anisocytosis Not Reportable 04/03/21 04:30 Microcytosis Not Reportable 04/03/21 04:30 Macrocytosis Not Reportable 04/03/21 04:30 Spherocytes Not Reportable 04/03/21 04:30 Pappenheimer Bodies Not Reportable 04/03/21 04:30 Sickle Cells Not Reportable 04/03/21 04:30 Target Cells Not Reportable 04/03/21 04:30 Tear Drop Cells Not Reportable 04/03/21 04:30 Ovalocytes Not Reportable 04/03/21 04:30 Helmet Cells Not Reportable 04/03/21 04:30 [place] Bodies Not Reportable 04/03/21 04:30 [place] Rings Not Reportable 04/03/21 04:30 Balaji Cells Not Reportable 04/03/21 04:30 Bite Cells Not Reportable 04/03/21 04:30 Crenated Cell Not Reportable 04/03/21 04:30 Elliptocytes Not Reportable 04/03/21 04:30 Acanthocytes (Spur) Not Reportable 04/03/21 04:30 Rouleaux Not Reportable 04/03/21 04:30 Hemoglobin C Crystals Not Reportable 04/03/21 04:30 Schistocytes Not Reportable 04/03/21 04:30 Malaria parasites Not Reportable 04/03/21 04:30 Percent Retic 4.52 % (0.78-2.58) H 03/31/21 09:49 Vaibhav Bodies Not Reportable 04/03/21 04:30 Hem Pathologist Commnt No 04/03/21 04:30 PT 13.9 Sec. (12.2-14.9) 04/04/21 07:55 INR 0.96 (0.87-1.13) 04/04/21 07:55 APTT 28.9 Sec. (24.2-36.6) 04/04/21 07:55 Fibrinogen 248 mg/dl (211-480) 04/02/21 04:00 D-Dimer 2607.12 ng/mlDDU (0-234) H 03/30/21 04:00 Heparin Anti-Xa, Unfract TNR 03/22/21 08:20 ABG pH 7.325 pH Units (7.350-7.450) L 04/05/21 21:40 POC ABG pCO2 Cancelled 04/03/21 20:45 ABG pCO2 48.4 mm Hg 04/05/21 21:40 POC ABG pO2 Cancelled 04/03/21 20:45 ABG pO2 65.6 mm Hg (80.0-90.0) L 04/05/21 21:40 POC ABG HCO3 Cancelled 04/03/21 20:45 ABG HCO3 24.7 mmol/L (20.0-26.0) 04/05/21 21:40 ABG O2 Saturation 91.2 % (95.0-99.0) L 04/05/21 21:40 ABG O2 Content 8.5 (0.0-44) 04/05/21 21:40 POC ABG Base Excess Cancelled 04/03/21 20:45 ABG Base Excess -1.3 mmol/L (-2.0-3.0) 04/05/21 21:40 ABG Hemoglobin 6.7 gm/dl (12.0-16.0) L 04/05/21 21:40 ABG Oxyhemoglobin Cancelled 04/03/21 20:45 ABG Carboxyhemoglobin 2.0 % (0.0-5.0) 04/05/21 21:40 ABG Methemoglobin 0.4 % (0.0-1.5) 04/05/21 21:40 ABG Sodium Cancelled 04/03/21 20:45 ABG Potassium Cancelled 04/03/21 20:45 ABG Chloride Cancelled 04/03/21 20:45 ABG Glucose Cancelled 04/03/21 20:45 ABG Lactate Cancelled 04/03/21 20:45 Oxyhemoglobin 89.0 % (95.0-99.0) L 04/05/21 21:40 Carboxyhemoglobin Cancelled 04/03/21 20:45 FiO2 50 % 04/05/21 21:40 FiO2 % Cancelled 04/03/21 20:45 Sodium 132 mmol/L (137-145) L 04/06/21 06:00 Potassium 4.1 mmol/L (3.6-5.0) 04/06/21 06:00 Chloride 90.7 mmol/L (98-107) L 04/06/21 06:00 Carbon Dioxide 21 mmol/L (22-30) L 04/06/21 06:00 Anion Gap 24 mmol/L 04/06/21 06:00 BUN 74 mg/dL (7-17) H 04/06/21 06:00 Creatinine 4.3 mg/dL (0.6-1.2) H 04/06/21 06:00 Estimated GFR 15 ml/min 04/06/21 06:00 BUN/Creatinine Ratio 17 % 04/06/21 06:00 Glucose 156 mg/dL (65-100) H 04/06/21 06:00 POC Glucose 166 mg/dL (70-105) H 04/06/21 11:27 Hemoglobin A1c 6.3 % (4-6) H 03/15/21 05:09 Lactic Acid 2.00 mmol/L (0.7-2.0) 03/14/21 18:47 Calcium 7.9 mg/dL (8.4-10.2) L 04/06/21 06:00 Phosphorus 6.90 mg/dL (2.5-4.5) H D 04/06/21 06:00 Magnesium 2.00 mg/dL (1.7-2.3) 04/06/21 06:00 Ferritin 151.6 ng/mL (10.0-200.0) 03/18/21 04:30 Total Bilirubin 0.80 mg/dL (0.1-1.2) 04/06/21 06:00 Bilirubin Cancelled 04/03/21 20:45 AST < 5 units/L (5-40) L 04/06/21 06:00 ALT < 5 units/L (7-56) L 04/06/21 06:00 Alkaline Phosphatase 185 units/L (35-129) H 04/06/21 06:00 Lactate Dehydrogenase 394 units/L (91-180) H 04/05/21 05:20 C-Reactive Protein 21.50 mg/dL (0.00-1.30) H 03/30/21 04:00 Total Protein 5.7 g/dL (6.3-8.2) L 04/06/21 06:00 Albumin 2.5 g/dL (3.9-5) L 04/06/21 06:00 Albumin/Globulin Ratio 0.8 % 04/06/21 06:00 Triglycerides 579 mg/dL (2-149) H 04/02/21 05:00 Procalcitonin < 0.05 ng/mL (<0.15) 03/13/21 15:40 HCG, Qual Negative (Negative) 03/13/21 13:26 Arterial Blood Glucose Cancelled 04/03/21 20:45 Arterial Blood Ionized Calcium Cancelled 04/03/21 20:45 Urine Creatinine 40.1 mg/dL (0.1-20.0) H 03/14/21 17:50 Urine Sodium 124 mmol/L 03/14/21 17:50 Random Vancomycin 11.2 ug/mL (0-40.0) 03/20/21 04:23 Heparin-induced Plt Ab Negative (Negative) 03/22/21 08:20 UF Heparin High Dose TNR 03/22/21 08:20 JUAN UFH Low Dose 0.1 TNR 03/22/21 08:20 JUAN UFH Low Dose 0.5 TNR 03/22/21 08:20 Coronavirus (PCR) Negative (Negative) 04/04/21 09:00 Hepatitis A IgM Ab Non-reactive (NonReactive) 03/15/21 05:09 Hep Bs Antigen Nonreactive (Negative) 03/15/21 05:09 Hep B Core IgM Ab Non-reactive (NonReactive) 03/15/21 05:09 Hepatitis C Antibody Non-reactive (NonReactive) 03/15/21 05:09 Schistocytes Smear None seen 03/31/21 12:11 Blood Type O POSITIVE 04/04/21 09:20 Antibody Screen Negative 04/04/21 09:20 Direct Antiglob Test Negative 03/31/21 23:18 NIKOLE, Poly Interpret Negative 03/31/21 23:18 Crossmatch See Detail 04/04/21 09:20 Bazan/IV: Voiding Method Toilet Active Medications - Current Medications Current Medications: Generic Name Dose Route Start Last Admin Trade Name Freq PRN Reason Stop Dose Admin Acetaminophen 650 mg 03/31/21 12:41 04/06/21 07:38 Acetaminophen 325 Mg/10.15 Ml Oral Liqd Unit Dose FEEDTUBE 650 mg Q6H PRN Administration TEMP >/=100.4 Albumin Human 25 gm 04/01/21 08:19 04/01/21 16:23 Albumin Human 25% (25 Gm/100 Ml) Inj IV 25 gm KARLOS PRN Administration Hypotension Albuterol 2.5 mg 03/19/21 00:53 Albuterol 2.5 Mg/3 Ml Nebu IH Q4HRT PRN Shortness Of Breath Albuterol/Ipratropium 1 ampul 03/19/21 08:00 04/06/21 08:07 Ipratropium/Albuterol Sulfate 3 Ml Ampul.Neb IH 1 ampul Q6HRT INESSA Administration Lipase/Protease/Amylase 1 each 03/15/21 11:42 Lipase 10,500/Protease 25,000/Amylase 43,750 (Units) Dr White FEEDTUBE PRN PRN For Clogged Feeding Tube Apixaban 2.5 mg 03/29/21 13:00 04/06/21 09:38 Apixaban 2.5 Mg Tab PO 2.5 mg Q12HR INESSA Administration Protocol Ascorbic Acid 500 mg 03/14/21 22:00 04/06/21 09:38 Ascorbic Acid 500 Mg Tab PO 500 mg BID INESSA Administration Calcium Acetate 1,334 mg 04/03/21 20:00 04/06/21 09:37 Calcium Acetate 667 Mg Cap FEEDTUBE 1,334 mg TID INESSA Administration Dextrose 50 ml 03/14/21 11:02 03/15/21 11:40 Dextrose 50% In Water (25gm) 50 Ml Syringe IV 50 ml Q30MIN PRN Administration Hypoglycemia Protocol Famotidine 10 mg 03/17/21 22:00 04/06/21 09:38 Famotidine 10 Mg Tab PO 10 mg BID INESSA Administration Fentanyl 50 mcg 03/15/21 10:43 04/05/21 21:32 Fentanyl 100 Mcg/2 Ml Inj IV 50 mcg Q10MIN PRN Administration ANALGESIA Hydromorphone HCl 1 mg 04/06/21 11:32 04/06/21 11:47 Hydromorphone 1 Mg/1 Ml Inj IV 04/13/21 11:31 1 mg Q4H PRN Administration Pain , Severe (7-10) Hydrophilic Ointment 1 applic 03/14/21 17:50 Lip Therapy Vaseline TP Q2HR PRN Dry Lips Propofol 1,000 mg in 100 mls @ 4.123 mls/hr 03/15/21 11:00 04/06/21 10:22 Diprivan 10 Mg/Ml IV 0 mcg/kg/min TITR INESSA 0 mls/hr Titration Protocol 5 MCG/KG/MIN Fentanyl Citrate 2,000 mcg in 100 mls @ 6.872 mls/hr 03/15/21 11:00 04/06/21 11:12 Fentanyl Drip Premix IV 4 mcg/kg/hr TITR INESSA 27.488 mls/hr Administration Protocol 1 MCG/KG/HR Sodium Chloride 500 mls @ 1 mls/hr 03/16/21 17:19 Nacl 0.9% 500 Ml IV DIRECT PRN ARTERIAL LINE FLUSH NORepinephrine/NS 8 MG-250 ML 8 mg in 250 mls @ 3.75 mls/hr 03/23/21 11:00 04/06/21 10:24 Norepinephrine/Ns 8 Mg-250 Ml (Double Conc) IV 12 mcg/min TITRATE INESSA 22.5 mls/hr Titration Protocol 2 MCG/MIN Midazolam HCl 100 mg/ Sodium 100 mls @ 1 mls/hr 03/30/21 15:00 04/06/21 12:22 Chloride IV 5 mg/hr TITR INESSA 5 mls/hr Titration Protocol 1 MG/HR Vasopressin 20 unit/ Sodium 101 mls @ 9.09 mls/hr 03/30/21 20:00 04/06/21 09:14 Chloride IV 0.03 units/min TITR INESSA 9.09 mls/hr Administration 0.03 UNITS/MIN Phenylephrine HCl 100 mg/ 100 mls @ 3 mls/hr 03/31/21 04:00 04/06/21 07:58 Sodium Chloride IV 0 mcg/min TITR INESSA 0 mls/hr Titration Protocol 50 MCG/MIN Sodium Chloride 100 mls @ 999 mls/hr 04/01/21 08:19 Nacl 0.9% IV KARLOS PRN Hypotension Sodium Bicarbonate 150 meq/ 1,150 mls @ 75 mls/hr 04/02/21 22:00 04/03/21 13:42 Dextrose IV 75 mls/hr DIRECT INESSA Administration Sodium Chloride 500 mls @ 0 mls/hr 04/06/21 09:00 Nacl 0.9% 500 Ml IV 04/06/21 18:00 ONCE@0900 INESSA As Directed Sodium Chloride 500 mls @ 0 mls/hr 04/06/21 13:00 Nacl 0.9% 500 Ml IV 04/06/21 21:00 ONCE@1300 INESSA As Directed Insulin Human Lispro 0 unit 03/14/21 12:00 04/06/21 12:38 Insulin Lispro 100 Unit/Ml SUB-Q 2 unit Q6HR INESSA Administration Protocol Lorazepam 1 mg 03/13/21 19:40 03/30/21 19:58 Lorazepam 2 Mg/Ml Vial IV 1 mg Q4H PRN Administration Anxiety Methylprednisolone Sodium Succinate 40 mg 04/05/21 14:00 04/06/21 05:55 Methylprednisolone Sod Succinate 125 Mg/2 Ml Inj IV 40 mg Q8HR INESSA Administration Midazolam HCl 2 mg 03/30/21 14:19 03/30/21 14:30 Midazolam 2 Mg/2 Ml Inj IV 2 mg Q10MIN PRN Administration Sedation Multi-Ingred Cream/Lotion/Oil/Oint 1 applic 03/14/21 17:50 04/02/21 14:31 Mineral Oil/Petrolatum, White Ophth Oint 3.5 Gm OU 1 applic Q4HR PRN Administration Dry Eye(s) Ondansetron HCl 4 mg 03/13/21 19:30 03/21/21 12:05 Ondansetron 4 Mg/2 Ml Inj IV 4 mg Q8H PRN Administration Nausea And Vomiting Quetiapine Fumarate 300 mg 04/06/21 22:00 Quetiapine 100 Mg Tab PO BID INESSA Senna/Docusate Sodium 1 tab 03/14/21 22:00 04/06/21 09:57 Sennosides/Docusate Sodium 8.6/50 Mg Tab FEEDTUBE Not Given BID INESSA Simple Syrup 15 ml 03/15/21 11:42 Simple Syrup 15 Ml FEEDTUBE PRN PRN Hypoglycemia Simple Syrup 30 ml 03/15/21 11:42 Simple Syrup 15 Ml FEEDTUBE PRN PRN Hypoglycemia Sodium Bicarbonate 325 mg 03/15/21 11:42 03/21/21 17:21 Sodium Bicarbonate 325 Mg Tab FEEDTUBE 325 mg PRN PRN Administration For Clogged Feeding Tube Sodium Chloride 10 ml 03/13/21 22:00 04/06/21 09:39 Sodium Chloride 0.9% 10 Ml Flush Syringe IV 10 ml BID INESSA Administration Sodium Chloride 10 ml 03/13/21 19:30 Sodium Chloride 0.9% 10 Ml Flush Syringe IV PRN PRN LINE FLUSH Zinc Sulfate 220 mg 03/14/21 22:00 04/06/21 09:38 Zinc Sulfate 220 Mg Cap PO 220 mg BID INESSA Administration Nutrition/Malnutrition Assess - Dietary Evaluation Nutrition/Malnutrition Findings: Nutrition Notes Start: 03/15/21 11:06 Freq: Status: Active Protocol: Document 04/02/21 15:08 [facility] (Rec: 04/02/21 15:19 [facility] [id number]) Nutrition Notes Initial or Follow up Reassessment Current Diagnosis Acute Kidney Injury, Hypertension,Respiratory Failure Other Pertinent Diagnosis COVID-19 pneu, periorbital edema Current Diet TF - Nepro at 44ml/hr Labs/Tests Na 132 K 5.3 BUN 80 Cr 6.8 BG 174 Triglycerides 579 Pertinent Medications Propofol at 32.985ml/hr ( provides 871 kcal), Human Albumin, Solumedrol, Levophed gtt, Phenylephrine gtt, Vasopressin gtt, Kionex Height 5 ft 5 in Weight 137.438 kg [place] Body Weight (kg) 56.81 BMI 50.4 Weight Status Morbidly Obese Subjective/Other Information Spoke with pt's RN via phone at 15:06. Pt tolerating TF at goal rate, despite being on three pressors. Per RN, been able to decrease pressor concentration. Pt been spiking a fever for past few days; Artic sun blanket in place to lower body temperature. Pt remains on vent support. Percent of energy/protein needs met: 99% energy 73% pro Burn Absent Trauma Absent Minimum of two criteria No #1 Nutrition Diagnosis Swallowing difficulty Diagnosis Progress(for reassessment Continues documentation) Is patient on ventilator? Yes Is Patient Ambulatory and/or Out of Bed No REE-([facility]-confined to bed) 2515.536 Kcal/Kg value to use for calculation 14 Approximate Energy Requirements Using 1924 kcal/Kg Calculation Used for Recommendations Kcal/kg Additional Notes Pro needs >1.2g/kg adjBW: > 117g/day Fluid needs 1-1.5L/day Nutrition Intervention Nutrition Support: Continue Nepro at 44ml/hr. Provide 120ml water flush q4h Kcal 1,901 Protein (gm) 86 Carbohydrates (gm) 170 Fat (gm) 101 Fluid (mL) 768 Fiber (gm) 13 Goal #1 TF tolerance Goal #2 TF to meet at least 75% energy and pro needs Follow-Up By: 04/09/21 Additional Comments F/U: stable TF, vent status, wt, propofol, pressor support, rectal tube <SAURABH ALBRECHT - Last Filed: 04/15/21 07:28> Assessment and Plan Assessment and plan: I saw and evaluated the patient. Discussed with the nurse practitioner and agree with their findings and plan as documented in this note. Hospitalist Physical - Constitutional Vitals: Temp Pulse Resp BP Pulse Ox 102.0 F H 137 H 20 140/76 100 04/15/21 04:00 04/15/21 06:00 04/15/21 06:00 04/15/21 06:00 04/15/21 06:00 Results - Labs CBC & Chem 7: 04/15/21 Unknown 04/15/21 Unknown Labs: Laboratory Last Values WBC 11.8 K/mm3 (4.5-11.0) H 04/15/21 Unknown RBC 2.41 M/mm3 (3.65-5.03) L 04/15/21 Unknown Hgb 7.1 gm/dl (10.1-14.3) L 04/15/21 Unknown Hct 22.4 % (30.3-42.9) L 04/15/21 Unknown MCV 93 fl (79-97) 04/15/21 Unknown MCH 29 pg (28-32) 04/15/21 Unknown MCHC 32 % (30-34) 04/15/21 Unknown RDW 17.0 % (13.2-15.2) H 04/15/21 Unknown Plt Count 38 K/mm3 (140-440) L 04/15/21 Unknown Lymph % (Auto) 10.7 % (13.4-35.0) L 03/28/21 09:37 [place] % (Auto) 5.2 % (0.0-7.3) 03/28/21 09:37 Eos % (Auto) Rn Palliative Care 04/07/21 03:50 Baso % (Auto) 0.2 % (0.0-1.8) 03/28/21 09:37 Lymph # (Auto) 1.7 K/mm3 (1.2-5.4) 03/28/21 09:37 [place] # (Auto) 0.9 K/mm3 (0.0-0.8) H 03/28/21 09:37 Eos # (Auto) 0.6 K/mm3 (0.0-0.4) H 03/28/21 09:37 Baso # (Auto) 0.0 K/mm3 (0.0-0.1) 03/28/21 09:37 Add Manual Diff Complete 04/07/21 03:50 Total Counted 100 04/07/21 03:50 Seg Neutrophils % 80.0 % (40.0-70.0) H 03/28/21 09:37 Seg Neuts % (Manual) 67.0 % (40.0-70.0) 04/07/21 03:50 Lymphocytes % (Manual) 10.0 % (13.4-35.0) L 04/07/21 03:50 Monocytes % (Manual) 4.0 % (0.0-7.3) 04/07/21 03:50 Eosinophils % (Manual) 19.0 % (0.0-4.3) H 04/07/21 03:50 Basophils % (Manual) 2.0 % (0.0-1.8) H 04/03/21 04:30 Nucleated RBC % 2.0 % (0.0-0.9) H 04/07/21 03:50 Seg Neutrophils # 13.0 K/mm3 (1.8-7.7) H 03/28/21 09:37 Seg Neutrophils # Man 17.9 K/mm3 (1.8-7.7) H 04/07/21 03:50 Band Neutrophils # 0.0 K/mm3 04/07/21 03:50 Lymphocytes # (Manual) 2.7 K/mm3 (1.2-5.4) 04/07/21 03:50 Abs React Lymphs (Man) 0.0 K/mm3 04/07/21 03:50 Monocytes # (Manual) 1.1 K/mm3 (0.0-0.8) H 04/07/21 03:50 Eosinophils # (Manual) 5.1 K/mm3 (0.0-0.4) H 04/07/21 03:50 Basophils # (Manual) 0.0 K/mm3 (0.0-0.1) 04/07/21 03:50 Metamyelocytes # 0.0 K/mm3 04/07/21 03:50 Myelocytes # 0.0 K/mm3 04/07/21 03:50 Promyelocytes # 0.0 K/mm3 04/07/21 03:50 Blast Cells # 0.0 K/mm3 04/07/21 03:50 WBC Morphology Not Reportable 04/07/21 03:50 Hypersegmented Neuts Not Reportable 04/07/21 03:50 Hyposegmented Neuts Not Reportable 04/07/21 03:50 Hypogranular Neuts Not Reportable 04/07/21 03:50 Smudge Cells Not Reportable 04/07/21 03:50 Toxic Granulation Not Reportable 04/07/21 03:50 Toxic Vacuolation Not Reportable 04/07/21 03:50 Dohle Bodies Not Reportable 04/07/21 03:50 Pelger-Huet Anomaly Not Reportable 04/07/21 03:50 Bridgette Rods Not Reportable 04/07/21 03:50 Platelet Estimate Consistent w auto 04/07/21 03:50 Clumped Platelets Not Reportable 04/07/21 03:50 Plt Clumps, EDTA Not Reportable 04/07/21 03:50 Large Platelets Not Reportable 04/07/21 03:50 Giant Platelets Not Reportable 04/07/21 03:50 Platelet Satelliting Not Reportable 04/07/21 03:50 Plt Morphology Comment Not Reportable 04/07/21 03:50 RBC Morphology Not Reportable 04/07/21 03:50 Dimorphic RBCs Not Reportable 04/07/21 03:50 Polychromasia Not Reportable 04/07/21 03:50 Hypochromasia Not Reportable 04/07/21 03:50 Poikilocytosis Not Reportable 04/07/21 03:50 Anisocytosis 1+ 04/07/21 03:50 Microcytosis Not Reportable 04/07/21 03:50 Macrocytosis Not Reportable 04/07/21 03:50 Spherocytes Not Reportable 04/07/21 03:50 Pappenheimer Bodies Not Reportable 04/07/21 03:50 Sickle Cells Not Reportable 04/07/21 03:50 Target Cells 1+ 04/07/21 03:50 Tear Drop Cells Not Reportable 04/07/21 03:50 Ovalocytes Not Reportable 04/07/21 03:50 Helmet Cells Not Reportable 04/07/21 03:50 [place] Bodies Not Reportable 04/07/21 03:50 [place] Rings Not Reportable 04/07/21 03:50 Bal[place] Cells Not Reportable 04/07/21 03:50 Bite Cells Not Reportable 04/07/21 03:50 Crenated Cell Not Reportable 04/07/21 03:50 Elliptocytes Not Reportable 04/07/21 03:50 Acanthocytes (Spur) Not Reportable 04/07/21 03:50 Rouleaux Not Reportable 04/07/21 03:50 Hemoglobin C Crystals Not Reportable 04/07/21 03:50 Schistocytes Not Reportable 04/07/21 03:50 Malaria parasites Not Reportable 04/07/21 03:50 Percent Retic 4.52 % (0.78-2.58) H 03/31/21 09:49 Vaibhav Bodies Not Reportable 04/07/21 03:50 Hem Pathologist Commnt No 04/07/21 03:50 PT 16.3 Sec. (12.2-14.9) H 04/15/21 Unknown INR 1.18 (0.87-1.13) H 04/15/21 Unknown APTT 28.9 Sec. (24.2-36.6) 04/04/21 07:55 Fibrinogen 400 mg/dl (211-480) 04/14/21 09:45 D-Dimer 2696.79 ng/mlDDU (0-234) H 04/08/21 04:40 Heparin Anti-Xa, Unfract TNR 03/22/21 08:20 ABG pH 7.207 (7.320-7.450) L 04/14/21 21:00 POC ABG pCO2 67.6 mmHg (32.0-48.0) H 04/14/21 21:00 ABG pCO2 68.6 mm Hg 04/13/21 03:52 POC ABG pO2 143.7 mmHg (83-108) H 04/14/21 21:00 ABG pO2 98.9 mm Hg (80.0-90.0) H 04/13/21 03:52 POC ABG HCO3 26.2 04/14/21 21:00 ABG HCO3 25.5 mmol/L (20.0-26.0) 04/13/21 03:52 ABG O2 Saturation 98.8 (0-100) 04/14/21 21:00 ABG O2 Content 10.0 (0.0-44) 04/13/21 03:52 POC ABG Base Excess -1.9 04/14/21 21:00 ABG Base Excess -2.9 mmol/L (-2.0-3.0) L 04/13/21 03:52 ABG Hemoglobin 7.6 (12.0-17.5) L 04/14/21 21:00 ABG Oxyhemoglobin 97.6 (94-98) 04/14/21 21:00 ABG Carboxyhemoglobin 1.9 % (0.0-5.0) 04/13/21 03:52 ABG Methemoglobin 0.1 (0.0-1.5) 04/14/21 21:00 ABG Sodium 133.8 mmol/L (136.0-145.0) L 04/14/21 21:00 ABG Potassium 4.0 mmol/L (3.40-4.50) 04/14/21 21:00 ABG Chloride 101.0 mmol/L (98-107) 04/14/21 21:00 ABG Glucose 158 mg/dL (65-95) H 04/14/21 21:00 ABG Lactate Cancelled 04/03/21 20:45 Oxyhemoglobin 94.3 % (95.0-99.0) L 04/13/21 03:52 Carboxyhemoglobin 1.1 (0.5-1.5) 04/14/21 21:00 FiO2 65 % 04/13/21 03:52 FiO2 % 80.0 04/14/21 21:00 Sodium 137 mmol/L (137-145) 04/15/21 Unknown Potassium 4.3 mmol/L (3.6-5.0) 04/15/21 Unknown Chloride 98.5 mmol/L (98-107) 04/15/21 Unknown Carbon Dioxide 24 mmol/L (22-30) 04/15/21 Unknown Anion Gap 19 mmol/L 04/15/21 Unknown BUN 67 mg/dL (7-17) H 04/15/21 Unknown Creatinine 3.3 mg/dL (0.6-1.2) H 04/15/21 Unknown Estimated GFR 20 ml/min 04/15/21 Unknown BUN/Creatinine Ratio 20 % 04/15/21 Unknown Glucose 155 mg/dL (65-100) H 04/15/21 Unknown POC Glucose 147 mg/dL (70-105) H 04/14/21 23:53 Hemoglobin A1c 6.3 % (4-6) H 03/15/21 05:09 Lactic Acid 0.80 mmol/L (0.7-2.0) 04/07/21 03:50 Calcium 8.3 mg/dL (8.4-10.2) L 04/15/21 Unknown Phosphorus 5.70 mg/dL (2.5-4.5) H 04/15/21 Unknown Magnesium 1.90 mg/dL (1.7-2.3) 04/15/21 Unknown Ferritin 151.6 ng/mL (10.0-200.0) 03/18/21 04:30 Total Bilirubin 0.40 mg/dL (0.1-1.2) 04/15/21 Unknown Bilirubin Cancelled 04/03/21 20:45 AST 85 units/L (5-40) H 04/15/21 Unknown ALT 63 units/L (7-56) H 04/15/21 Unknown Alkaline Phosphatase 94 units/L (35-129) 04/15/21 Unknown Lactate Dehydrogenase 394 units/L (91-180) H 04/05/21 05:20 C-Reactive Protein 26.10 mg/dL (0.00-1.30) H 04/08/21 04:00 Total Protein 6.3 g/dL (6.3-8.2) 04/15/21 Unknown Albumin 2.4 g/dL (3.9-5) L 04/15/21 Unknown Albumin/Globulin Ratio 0.6 % 04/15/21 Unknown Triglycerides 406 mg/dL (2-149) H 04/11/21 04:15 Serotonin Release Assay TNR 03/22/21 08:20 Procalcitonin < 0.05 ng/mL (<0.15) 03/13/21 15:40 HCG, Qual Negative (Negative) 03/13/21 13:26 Arterial Blood Glucose 158 mg/dL (65-95) H 04/14/21 21:00 Arterial Blood Ionized Calcium 4.7 mg/dL (4.6-5.3) 04/14/21 21:00 Urine Color Sweta (Yellow) 04/06/21 Unknown Urine Turbidity Cloudy (Clear) 04/06/21 Unknown Urine pH 5.0 (5.0-7.0) 04/06/21 Unknown Ur Specific [place] 1.020 (1.003-1.030) 04/06/21 Unknown Urine Protein 100 mg/dl mg/dL (Negative) 04/06/21 Unknown Urine Glucose (UA) Neg mg/dL (Negative) 04/06/21 Unknown Urine Ketones Neg mg/dL (Negative) 04/06/21 Unknown Urine Blood Mod (Negative) 04/06/21 Unknown Urine Nitrite Neg (Negative) 04/06/21 Unknown Urine Bilirubin Neg (Negative) 04/06/21 Unknown Urine Urobilinogen < 2.0 mg/dL (<2.0) 04/06/21 Unknown Ur Leukocyte Esterase Neg (Negative) 04/06/21 Unknown Urine WBC (Auto) 148.0 /HPF (0.0-6.0) H 04/06/21 Unknown Urine RBC (Auto) > 182.0 /HPF (0.0-6.0) 04/06/21 Unknown U Epithel Cells (Auto) 102.0 /HPF (0-13.0) H 04/06/21 Unknown Urine Bacteria (Auto) 1+ /HPF (Negative) 04/06/21 Unknown Ur Renal Epithelial Cell 151 /LPF 04/06/21 Unknown Urine Mucus Few /HPF 04/06/21 Unknown Urine Yeast (Budding) 3+ /HPF 04/06/21 Unknown Urine Creatinine 40.1 mg/dL (0.1-20.0) H 03/14/21 17:50 Urine Sodium 124 mmol/L 03/14/21 17:50 Random Vancomycin 13.6 ug/mL (0-40.0) 04/12/21 04:30 KIMBERLEY Screen Negative (Negative) 04/07/21 08:27 Heparin-induced Plt Ab Negative (Negative) 03/22/21 08:20 UF Heparin High Dose TNR 03/22/21 08:20 JUAN UFH Low Dose 0.1 TNR 03/22/21 08:20 JUAN UFH Low Dose 0.5 TNR 03/22/21 08:20 Coronavirus (PCR) Negative (Negative) 04/04/21 09:00 Hepatitis A IgM Ab Non-reactive (NonReactive) 03/15/21 05:09 Hep Bs Antigen Nonreactive (Negative) 03/15/21 05:09 Hep B Core IgM Ab Non-reactive (NonReactive) 03/15/21 05:09 Hepatitis C Antibody Non-reactive (NonReactive) 03/15/21 05:09 Schistocytes Smear None seen 03/31/21 12:11 Blood Type O POSITIVE 04/11/21 13:39 Antibody Screen Negative 04/11/21 13:39 Direct Antiglob Test Negative 03/31/21 23:18 NIKOLE, Poly Interpret Negative 03/31/21 23:18 Crossmatch See Detail 04/11/21 13:39 Microbiology: Microbiology 04/11/21 15:05 Bronchial Washings - Left Upper Lobe Respiratory Culture - Preliminary Enterococcus Species Bazan/IV: Voiding Method Incontinent Active Medications - Current Medications Current Medications: Generic Name Dose Route Start Last Admin Trade Name Freq PRN Reason Stop Dose Admin Acetaminophen 650 mg 03/31/21 12:41 04/15/21 05:55 Acetaminophen 325 Mg/10.15 Ml Oral Liqd Unit Dose FEEDTUBE 650 mg Q6H PRN Administration TEMP >/=100.4 Albumin Human 25 gm 04/01/21 08:19 04/01/21 16:23 Albumin Human 25% (25 Gm/100 Ml) Inj IV 25 gm KARLOS PRN Administration Hypotension Albuterol 2.5 mg 03/19/21 00:53 Albuterol 2.5 Mg/3 Ml Nebu IH Q4HRT PRN Shortness Of Breath Albuterol/Ipratropium 1 ampul 03/19/21 08:00 04/15/21 02:11 Ipratropium/Albuterol Sulfate 3 Ml Ampul.Neb IH Not Given Q6HRT INESSA Lipase/Protease/Amylase 1 each 04/09/21 17:17 Lipase 10,500/Protease 25,000/Amylase 43,750 (Units) Dr Cap FEEDTUBE PRN PRN For Clogged Feeding Tube Calcium Acetate 1,334 mg 04/03/21 20:00 04/14/21 22:05 Calcium Acetate 667 Mg Cap FEEDTUBE 1,334 mg TID INESSA Administration Dextrose 50 ml 03/14/21 11:02 03/15/21 11:40 Dextrose 50% In Water (25gm) 50 Ml Syringe IV 50 ml Q30MIN PRN Administration Hypoglycemia Protocol Famotidine 10 mg 03/17/21 22:00 04/14/21 22:04 Famotidine 10 Mg Tab PO 10 mg BID INESSA Administration Fentanyl 50 mcg 03/15/21 10:43 04/05/21 21:32 Fentanyl 100 Mcg/2 Ml Inj IV 50 mcg Q10MIN PRN Administration ANALGESIA Hydrocortisone Sodium Succinate 100 mg 04/10/21 00:00 04/15/21 00:19 Hydrocortisone Sod Succ 100 Mg/2 Ml Vial IV 100 mg Q8H INESSA Administration Hydrophilic Ointment 1 applic 03/14/21 17:50 Lip Therapy Vaseline TP Q2HR PRN Dry Lips Fentanyl Citrate 2,000 mcg in 100 mls @ 6.872 mls/hr 03/15/21 11:00 04/15/21 07:09 Fentanyl Drip Premix IV 4 mcg/kg/hr TITR INESSA 27.488 mls/hr Administration Protocol 1 MCG/KG/HR Sodium Chloride 500 mls @ 1 mls/hr 03/16/21 17:19 Nacl 0.9% 500 Ml IV DIRECT PRN ARTERIAL LINE FLUSH Midazolam HCl 100 mg/ Sodium 100 mls @ 1 mls/hr 03/30/21 15:00 04/14/21 15:45 Chloride IV 4 mg/hr TITR INESSA 4 mls/hr Titration Protocol 1 MG/HR Vasopressin 20 unit/ Sodium 101 mls @ 9.09 mls/hr 03/30/21 20:00 04/15/21 07:13 Chloride IV 0.03 units/min TITR INESSA 9.09 mls/hr Infusion 0.03 UNITS/MIN Phenylephrine HCl 100 mg/ 100 mls @ 3 mls/hr 03/31/21 04:00 04/06/21 07:58 Sodium Chloride IV 0 mcg/min TITR INESSA 0 mls/hr Titration Protocol 50 MCG/MIN Sodium Chloride 100 mls @ 999 mls/hr 04/01/21 08:19 Nacl 0.9% IV KARLOS PRN Hypotension Propofol 1,000 mg in 100 mls @ 4.26 mls/hr 04/07/21 13:00 04/12/21 12:52 Diprivan 10 Mg/Ml IV 0 mcg/kg/min TITR INESSA 0 mls/hr Titration Protocol 5 MCG/KG/MIN Micafungin Sodium 100 mg/ 100 mls @ 100 mls/hr 04/09/21 17:00 04/14/21 17:40 Sodium Chloride IV 100 mls/hr Q24H INESSA Administration Protocol Norepinephrine 8 mg/ Sodium 8 mg in 258 mls @ 3.87 mls/hr 04/12/21 04:00 04/14/21 17:39 Chloride IV 0 mcg/min TITRATE INESSA 0 mls/hr Titration Protocol 2 MCG/MIN MEROPENEM/NS 1 GRAM/100 ML 1 gram in 100 mls @ 100 mls/hr 04/12/21 22:00 04/14/21 22:05 Merrem/Ns 1 Gram/100 Ml IV 100 mls/hr Q24H INESSA Administration Protocol Sodium Chloride 1,000 mls @ 1 mls/hr 04/14/21 16:45 04/14/21 16:57 Nacl 0.9% 1000 Ml IV 1 mls/hr DIRECT INESSA Administration Insulin Human Lispro 0 unit 03/14/21 12:00 04/15/21 06:07 Insulin Lispro 100 Unit/Ml SUB-Q Not Given Q6HR [facility] Protocol Lorazepam 1 mg 03/13/21 19:40 03/30/21 19:58 Lorazepam 2 Mg/Ml Vial IV 1 mg Q4H PRN Administration Anxiety Multi-Ingred Cream/Lotion/Oil/Oint 1 applic 03/14/21 17:50 04/10/21 22:03 Mineral Oil/Petrolatum, White Ophth Oint 3.5 Gm OU 1 applic Q4HR PRN Administration Dry Eye(s) Ondansetron HCl 4 mg 03/13/21 19:30 03/21/21 12:05 Ondansetron 4 Mg/2 Ml Inj IV 4 mg Q8H PRN Administration Nausea And Vomiting Quetiapine Fumarate 300 mg 04/06/21 22:00 04/14/21 22:05 Quetiapine 100 Mg Tab PO 300 mg BID INESSA Administration Senna/Docusate Sodium 1 tab 03/14/21 22:00 04/14/21 22:06 Sennosides/Docusate Sodium 8.6/50 Mg Tab FEEDTUBE Not Given BID INESSA Simple Syrup 15 ml 04/09/21 17:17 Simple Syrup 15 Ml FEEDTUBE PRN PRN Hypoglycemia Simple Syrup 30 ml 04/09/21 17:17 Simple Syrup 15 Ml FEEDTUBE PRN PRN Hypoglycemia Sodium Bicarbonate 325 mg 04/09/21 17:17 Sodium Bicarbonate 325 Mg Tab FEEDTUBE PRN PRN For Clogged Feeding Tube Sodium Chloride 10 ml 03/13/21 22:00 04/14/21 22:17 Sodium Chloride 0.9% 10 Ml Flush Syringe IV 10 ml BID INESSA Administration Sodium Chloride 10 ml 03/13/21 19:30 Sodium Chloride 0.9% 10 Ml Flush Syringe IV PRN PRN LINE FLUSH Nutrition/Malnutrition Assess - Dietary Evaluation Nutrition/Malnutrition Findings: Nutrition Notes Start: 03/15/21 11:06 Freq: Status: Active Protocol: Document 04/14/21 11:13 CANDACE (Rec: 04/14/21 11:52 CANDACE [id number]) Nutrition Notes Initial or Follow up Reassessment Other Pertinent Diagnosis [id number], Transaminitis, Hyperglycemia. Current Diet TF -Glucerna 1.2 Abdullahi (since L 04/14). Labs/Tests 04/14: BUN 74, Crea 3.1, Glu 220. Pertinent Medications 04/14 Vit C, D50w (25 g) mEq, Insulin, Zn, Propofol 1,000 mg /100 ml @ 4.26 ml/hr, others nutritionally unremarkable. Height 5 ft 5 in Weight 142 kg [place] Body Weight (kg) 56.81 BMI 52.0 Weight change and time frame No new reports on body weight changes, Weight Status Morbidly Obese Subjective/Other Information RD consult on change TF from Nepro w/CARBSTEADY to Glucerna 1,2 Abdullahi, due to lack of stock Nepro. Percent of energy/protein needs met: 100% Kcal; 85% AA. Burn Absent Trauma Absent GI Symptoms None Food Allergy No Skin Integrity/Comment Clear, warm, dry. Current % PO Other Minimum of two criteria No Is patient on ventilator? Yes Is Patient Ambulatory and/or Out of Bed No REE-([facility]-confined to bed) 2570.232 Kcal/Kg value to use for calculation 14 Approximate Energy Requirements Using 1988 kcal/Kg Calculation Used for Recommendations Kcal/kg Additional Notes Pro needs >1.2g/kg adjBW: > 117g/day Fluid needs 1-1.5L/day Nutrition Intervention Nutrition Support: Change to Glucerna 1.2 Abdullahi @ 69 ml/hr. Flush: 109 ml water Q 4 hr. Kcal 1,988 Protein (gm) 99 Carbohydrates (gm) 190 Fat (gm) 99 Fluid (mL) 1,334 Fiber (gm) 27 % RDI: 100% Kcal; 85% AA. Goal #1 Maintain body weight within +/ -3% of admission BWt during LOS. Goal #2 Reach and maintain acceptable chemistry lab values during LOS. Follow-Up By: 04/16/21 Additional Comments Continue monitoring TF tolerance, Hydration, and BM.
--- NOTE | 2021-04-06 13:15 | Vascular Lab Report ---
DUPLEX DOPPLER LOWER EXTREMITY VEINS, BILATERAL INDICATION / CLINICAL INFORMATION: swelling and fevers. TECHNIQUE: Duplex doppler imaging was performed through the veins of both lower extremities using eve ous compression and other maneuvers. COMPARISON: None available. FINDINGS: RIGHT COMMON FEMORAL VEIN: Negative. RIGHT FEMORAL VEIN: Negative. RIGHT POPLITEAL VEIN: Negative. RIGHT CALF VEINS: Negative. LEFT COMMON FEMORAL VEIN: Negative. LEFT FEMORAL VEIN: Negative. LEFT POPLITEAL VEIN: Negative. LEFT CALF VEINS: Negative. ADDITIONAL FINDINGS: None. IMPRESSION: 1. No sonographic evidence for DVT in either lower extremity. Signer Name: Oliver Brown MD Signed: 04/06/2021 1:10 PM Workstation Name: [id number] [id number]
--- NOTE | 2021-04-06 13:40 | Progress Note ---
Assessment and Plan Cultures: SARS CoV2 PCR: Positive 03/13/2021 blood culture: No growth Resp cultures 03/14/2021: MSSA 03/23/2021 blood culture: No growth 03/23/2021 sputum culture: Usual respiratory maury 03/29/2021 blood culture: no growth A/P: 31-year-old female with asthma, morbid obesity, Crohn's disease admitted with cough and shortness of breath: #Septic shock: s/p abx. Persistently febrile. #Bilateral pneumonia: Secondary to COVID-19. Severe disease, then developed MSSA in the lungs. s/p Actemra 03/15/2021, completed steroids for COVID. D-dimer very high initially, which has shown improvement. #Acute hypoxic respiratory failure: on the vent. #Rash with eosinophilia: Question of drug reaction, remains off Cefepime and all other abx. 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 #Acute renal failure: progressive. Nephrology following, initiated on HD. #Acute asthma exacerbation #Morbid obesity Recs: -febrile persistently, remains critically ill, reculture blood, tracheal aspirate and urine -started IV Aztreonam, vancomycin and levofloxacin -on steroids per ICU -extremely poor prognosis Donn Solano MD, FACP, [facility] O: [phone] F: [phone] Subjective Date of service: 04/06/21 Principal diagnosis: Ac hypoxemic resp failure; AE-Asthma; SAI; Crohn's; COVID- 19; Pneumonia Interval history: Remains critically ill, on the vent, on 3 pressors. Febrile. Objective - Exam Narrative Exam: Physical Exam Constitutional: sedated, intubated, on the vent, morbidly obese Head, Ears, Nose: Normocephalic, atraumatic. External ears, nose normal Eyes: Conjunctivae/corneas clear. No icterus. No ptosis. Neck: intubated Oral: intubated Cardiovascular: S1, S2 + Respiratory: AE fair bilaterally and equal GI: Soft, bowel sounds + Musculoskeletal: anasarca Skin: rash, blisters + Hem/Lymphatic: No palpable cervical or supraclavicular nodes. No lymphangitis Psych: no agitation Neurological: sedated, intubated, on the vent, exam limited - Constitutional Vitals: Vital Signs Temp Pulse Resp BP Pulse Ox 101.7 F H 128 H 40 H 108/51 93 04/06/21 12:45 04/06/21 12:45 04/06/21 12:45 04/06/21 12:45 04/06/21 12:45 Temperature -Last 24 Hours Temperature 101.7 F Temperature 101.5 F Temperature 101.5 F Temperature 101 F Temperature 101.3 F Temperature 101.3 F Temperature 101.5 F Temperature 100 F Temperature 101.3 F Temperature 101.5 F Temperature 101.1 F Temperature 100.2 F - Labs CBC & Chem 7: 04/06/21 06:00 04/06/21 06:00 Labs: Abnormal lab results 04/04/21 04/05/21 04/05/21 Range/Units 09:20 21:40 23:53 WBC (4.5-11.0) K/mm3 RBC (3.65-5.03) M/mm3 Hgb (10.1-14.3) gm/dl Hct (30.3-42.9) % RDW (13.2-15.2) % ABG pH 7.325 L (7.350-7.450) pH Units ABG pO2 65.6 L (80.0-90.0) mm Hg ABG O2 Saturation 91.2 L (95.0-99.0) % ABG Hemoglobin 6.7 L (12.0-16.0) gm/dl Oxyhemoglobin 89.0 L (95.0-99.0) % Sodium (137-145) mmol/L Chloride (98-107) mmol/L Carbon Dioxide (22-30) mmol/L BUN (7-17) mg/dL Creatinine (0.6-1.2) mg/dL Glucose (65-100) mg/dL POC Glucose 192 H (70-105) mg/dL Calcium (8.4-10.2) mg/dL Phosphorus (2.5-4.5) mg/dL AST (5-40) units/L ALT (7-56) units/L Alkaline Phosphatase (35-129) units/L Total Protein (6.3-8.2) g/dL Albumin (3.9-5) g/dL Crossmatch See Detail 04/06/21 04/06/21 04/06/21 Range/Units 05:35 06:00 06:00 WBC 26.7 H (4.5-11.0) K/mm3 RBC 2.39 L (3.65-5.03) M/mm3 Hgb 6.9 L (10.1-14.3) gm/dl Hct 20.1 L (30.3-42.9) % RDW 18.7 H (13.2-15.2) % ABG pH (7.350-7.450) pH Units ABG pO2 (80.0-90.0) mm Hg ABG O2 Saturation (95.0-99.0) % ABG Hemoglobin (12.0-16.0) gm/dl Oxyhemoglobin (95.0-99.0) % Sodium 132 L (137-145) mmol/L Chloride 90.7 L (98-107) mmol/L Carbon Dioxide 21 L (22-30) mmol/L BUN 74 H (7-17) mg/dL Creatinine 4.3 H (0.6-1.2) mg/dL Glucose 156 H (65-100) mg/dL POC Glucose 139 H (70-105) mg/dL Calcium 7.9 L (8.4-10.2) mg/dL Phosphorus 6.90 H D (2.5-4.5) mg/dL AST < 5 L (5-40) units/L ALT < 5 L (7-56) units/L Alkaline Phosphatase 185 H (35-129) units/L Total Protein 5.7 L (6.3-8.2) g/dL Albumin 2.5 L (3.9-5) g/dL Crossmatch 04/06/21 Range/Units 11:27 WBC (4.5-11.0) K/mm3 RBC (3.65-5.03) M/mm3 Hgb (10.1-14.3) gm/dl Hct (30.3-42.9) % RDW (13.2-15.2) % ABG pH (7.350-7.450) pH Units ABG pO2 (80.0-90.0) mm Hg ABG O2 Saturation (95.0-99.0) % ABG Hemoglobin (12.0-16.0) gm/dl Oxyhemoglobin (95.0-99.0) % Sodium (137-145) mmol/L Chloride (98-107) mmol/L Carbon Dioxide (22-30) mmol/L BUN (7-17) mg/dL Creatinine (0.6-1.2) mg/dL Glucose (65-100) mg/dL POC Glucose 166 H (70-105) mg/dL Calcium (8.4-10.2) mg/dL Phosphorus (2.5-4.5) mg/dL AST (5-40) units/L ALT (7-56) units/L Alkaline Phosphatase (35-129) units/L Total Protein (6.3-8.2) g/dL Albumin (3.9-5) g/dL Crossmatch
[2021-04-06] MEDS: AZTREONAM/NS 1 GM/50 ML 1 GM/50 ML VIAL IV SCH (17:35)
--- NOTE | 2021-04-06 18:37 | Electrocardiograph Report ---
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
[2021-04-06] MEDS: QUEtiapine 100 MG TAB PO SCH (21:53)
[2021-04-07] MEDS: INSULIN LISPRO 100 UNIT/ML SUB-Q SCH ×4 (00:54→17:14)
[2021-04-07] MEDS: IPRATROPIUM/ALBUTEROL SULFATE 3 ML AMPUL.NEB IH SCH ×4 (01:37→20:46)
[2021-04-07] MEDS: NORepinephrine/NS 8 MG-250 ML 8 MG/250 ML INFUS..BTL IV SCH ×2 (02:23→18:03)
[2021-04-07] MEDS: AZTREONAM/NS 1 GM/50 ML 1 GM/50 ML VIAL IV SCH ×2 (02:30→16:32)
[2021-04-07] MEDS: fentaNYL DRIP Premix 2,000 MCG/100 ML BAG IV SCH ×6 (02:31→21:40)
[2021-04-07] MEDS: ACETAMINOPHEN 325 MG/10.15 ML ORAL LIQD UNIT DOSE FEEDTUBE PRN ×3 (02:53→16:56)
[2021-04-07 04:44] LABS: Hematocrit 23.2 % (30.3-42.9); Hemoglobin 7.6 gm/dl (10.1-14.3); Mean Corpuscular HGB Conc 33 % (30-34); Mean Corpuscular Volume 87 fl (79-97); Platelet Count 246 K/mm3 (140-440); Red Blood Count 2.66 M/mm3 (3.65-5.03); Red Cell Distribution Width 18.5 % (13.2-15.2)
[2021-04-07 04:52] LABS: Calcium 7.8 mg/dL (8.4-10.2)
[2021-04-07 05:12] LABS: Albumin 2.8 g/dL (3.9-5); Calcium 7.9 mg/dL (8.4-10.2)
[2021-04-07] MEDS: methylPREDNISolone Sod Succinate 125 MG/2 ML INJ IV SCH ×3 (05:26→22:00)
[2021-04-07] MEDS: VASOPRESSIN 20 UNIT in SODIUM CHLORIDE 0.9% 100 ML IV SCH ×2 (05:27→18:03)
[2021-04-07 06:24] LABS: Total Cells Counted 100
[2021-04-07 06:25] LABS: Anisocytosis 1+; Platelet Estimate Consistent w Auto; Target Cells 1+
[2021-04-07] MEDS: MIDAZOLAM 2 MG/2 ML INJ IV PRN ×4 (09:15→11:13)
[2021-04-07] MEDS: APIXABAN 2.5 MG TAB PO SCH ×2 (09:23→21:41)
[2021-04-07] MEDS: FAMOTIDINE 10 MG TAB PO SCH ×2 (09:23→21:41)
[2021-04-07] MEDS: ASCORBIC ACID 500 MG TAB PO SCH ×2 (09:23→21:42)
[2021-04-07] MEDS: SENNOSIDES/DOCUSATE SODIUM 8.6/50 MG TAB FEEDTUBE SCH ×2 (09:23→21:42)
[2021-04-07] MEDS: ZINC SULFATE 220 MG CAP PO SCH ×2 (09:23→21:41)
[2021-04-07] MEDS: CALCIUM ACETATE 667 MG CAP FEEDTUBE SCH ×3 (09:25→21:41)
[2021-04-07] MEDS: QUEtiapine 100 MG TAB PO SCH ×2 (09:55→21:41)
--- NOTE | 2021-04-07 11:45 | Progress Note ---
Assessment and Plan Cultures: SARS CoV2 PCR: Positive 03/13/2021 blood culture: No growth Resp cultures 03/14/2021: MSSA 03/23/2021 blood culture: No growth 03/23/2021 sputum culture: Usual respiratory maury 03/29/2021 blood culture: no growth 04/06/2021 blood culture: In process 04/06/2021 endotracheal aspirate culture: In process 04/06/2021 urine culture: Not collected yet A/P: 31-year-old female with asthma, morbid obesity, Crohn's disease admitted with cough and shortness of breath: #Septic shock: s/p abx. Persistently febrile, on multiple pressors. Has previously completed Ancef followed by Cefepime, and now on Aztreonam, Vancomycin and levofloxacin. #Bilateral pneumonia: Secondary to COVID-19. Severe disease, then developed MSSA in the lungs. s/p Actemra 03/15/2021, completed steroids for COVID. D-dimer very high initially, which has shown improvement. #Acute hypoxic respiratory failure: on the vent. #Rash with eosinophilia: Question of drug reaction, remains off Cefepime. 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 #Acute renal failure: progressive. Nephrology following, on HD. #Acute asthma exacerbation #Morbid obesity Recs: -f/u new cultures: blood, tracheal aspirate and urine -continue IV Aztreonam, vancomycin and levofloxacin -CRP ordered for AM -on steroids per ICU -if fevers persistent, consider CT chest, abdomen and pelvis when feasible -extremely poor prognosis Donn Solano MD, FACP, [facility] O: [phone] F: [phone] Subjective Date of service: 04/07/21 Principal diagnosis: Ac hypoxemic resp failure; AE-Asthma; SAI; Crohn's; COVID- 19; Pneumonia Interval history: Continues with fever. Remains on the vent, on 2 pressors. Objective - Exam Narrative Exam: Physical Exam Constitutional: sedated, intubated, on the vent, morbidly obese Head, Ears, Nose: Normocephalic, atraumatic. External ears, nose normal Eyes: Conjunctivae/corneas clear. No icterus. No ptosis. Neck: intubated Oral: intubated Cardiovascular: S1, S2 + Respiratory: AE fair bilaterally and equal GI: Soft, bowel sounds + Musculoskeletal: anasarca Skin: rash, blisters + Hem/Lymphatic: No palpable cervical or supraclavicular nodes. No lymphangitis Psych: no agitation Neurological: sedated, intubated, on the vent, exam limited - Constitutional Vitals: Vital Signs Temp Pulse Resp BP Pulse Ox 99.3 F 120 H 42 H 168/85 93 04/07/21 07:42 04/07/21 08:38 04/07/21 08:38 04/07/21 08:37 04/07/21 08:37 Temperature -Last 24 Hours Temperature 99.3 F Temperature 101.1 F Temperature 102.7 F Temperature 102.2 F Temperature 101.7 F Temperature 101.5 F Temperature 101.7 F Temperature 101.7 F Temperature 101.5 F Temperature 101.5 F Temperature 101 F Temperature 101.3 F - Labs CBC & Chem 7: 04/07/21 03:50 04/07/21 04:00 Labs: Abnormal lab results 04/04/21 04/06/21 04/06/21 Range/Units 09:20 11:27 18:01 WBC (4.5-11.0) K/mm3 RBC (3.65-5.03) M/mm3 Hgb (10.1-14.3) gm/dl Hct (30.3-42.9) % RDW (13.2-15.2) % Lymphocytes % (Manual) (13.4-35.0) % Eosinophils % (Manual) (0.0-4.3) % Nucleated RBC % (0.0-0.9) % Seg Neutrophils # Man (1.8-7.7) K/mm3 Monocytes # (Manual) (0.0-0.8) K/mm3 Eosinophils # (Manual) (0.0-0.4) K/mm3 D-Dimer (0-234) ng/mlDDU ABG pH (7.320-7.450) POC ABG pO2 (83-108) mmHg ABG Hemoglobin (12.0-17.5) ABG Oxyhemoglobin (94-98) ABG Sodium (136.0-145.0) mmol/L ABG Chloride (98-107) mmol/L ABG Glucose (65-95) mg/dL Sodium (137-145) mmol/L Potassium (3.6-5.0) mmol/L Chloride (98-107) mmol/L Carbon Dioxide (22-30) mmol/L BUN (7-17) mg/dL Creatinine (0.6-1.2) mg/dL Glucose (65-100) mg/dL POC Glucose 166 H 159 H (70-105) mg/dL Calcium (8.4-10.2) mg/dL Alkaline Phosphatase (35-129) units/L Albumin (3.9-5) g/dL Arterial Blood Glucose (65-95) mg/dL Crossmatch See Detail 04/06/21 04/06/21 04/07/21 Range/Units 20:50 23:43 03:50 WBC 26.7 H (4.5-11.0) K/mm3 RBC 2.66 L (3.65-5.03) M/mm3 Hgb 7.6 L (10.1-14.3) gm/dl Hct 23.2 L (30.3-42.9) % RDW 18.5 H (13.2-15.2) % Lymphocytes % (Manual) 10.0 L (13.4-35.0) % Eosinophils % (Manual) 19.0 H (0.0-4.3) % Nucleated RBC % 2.0 H (0.0-0.9) % Seg Neutrophils # Man 17.9 H (1.8-7.7) K/mm3 Monocytes # (Manual) 1.1 H (0.0-0.8) K/mm3 Eosinophils # (Manual) 5.1 H (0.0-0.4) K/mm3 D-Dimer (0-234) ng/mlDDU ABG pH 7.303 L (7.320-7.450) POC ABG pO2 67.9 L (83-108) mmHg ABG Hemoglobin 7.6 L (12.0-17.5) ABG Oxyhemoglobin 90.2 L (94-98) ABG Sodium 128.6 L (136.0-145.0) mmol/L ABG Chloride 97.0 L (98-107) mmol/L ABG Glucose 154 H (65-95) mg/dL Sodium (137-145) mmol/L Potassium (3.6-5.0) mmol/L Chloride (98-107) mmol/L Carbon Dioxide (22-30) mmol/L BUN (7-17) mg/dL Creatinine (0.6-1.2) mg/dL Glucose (65-100) mg/dL POC Glucose 137 H (70-105) mg/dL Calcium (8.4-10.2) mg/dL Alkaline Phosphatase (35-129) units/L Albumin (3.9-5) g/dL Arterial Blood Glucose 154 H (65-95) mg/dL Crossmatch 04/07/21 04/07/21 04/07/21 Range/Units 03:50 03:50 04:00 WBC (4.5-11.0) K/mm3 RBC (3.65-5.03) M/mm3 Hgb (10.1-14.3) gm/dl Hct (30.3-42.9) % RDW (13.2-15.2) % Lymphocytes % (Manual) (13.4-35.0) % Eosinophils % (Manual) (0.0-4.3) % Nucleated RBC % (0.0-0.9) % Seg Neutrophils # Man (1.8-7.7) K/mm3 Monocytes # (Manual) (0.0-0.8) K/mm3 Eosinophils # (Manual) (0.0-0.4) K/mm3 D-Dimer 2178 H (0-234) ng/mlDDU ABG pH (7.320-7.450) POC ABG pO2 (83-108) mmHg ABG Hemoglobin (12.0-17.5) ABG Oxyhemoglobin (94-98) ABG Sodium (136.0-145.0) mmol/L ABG Chloride (98-107) mmol/L ABG Glucose (65-95) mg/dL Sodium 130 L 129 L (137-145) mmol/L Potassium 5.1 H (3.6-5.0) mmol/L Chloride 91.1 L 89.6 L (98-107) mmol/L Carbon Dioxide 19 L 18 L (22-30) mmol/L BUN 92 H 94 H (7-17) mg/dL Creatinine 4.2 H 4.2 H (0.6-1.2) mg/dL Glucose 213 H 213 H (65-100) mg/dL POC Glucose (70-105) mg/dL Calcium 7.8 L 7.9 L (8.4-10.2) mg/dL Alkaline Phosphatase 167 H (35-129) units/L Albumin 2.8 L (3.9-5) g/dL Arterial Blood Glucose (65-95) mg/dL Crossmatch 04/07/21 Range/Units 11:10 WBC (4.5-11.0) K/mm3 RBC (3.65-5.03) M/mm3 Hgb (10.1-14.3) gm/dl Hct (30.3-42.9) % RDW (13.2-15.2) % Lymphocytes % (Manual) (13.4-35.0) % Eosinophils % (Manual) (0.0-4.3) % Nucleated RBC % (0.0-0.9) % Seg Neutrophils # Man (1.8-7.7) K/mm3 Monocytes # (Manual) (0.0-0.8) K/mm3 Eosinophils # (Manual) (0.0-0.4) K/mm3 D-Dimer (0-234) ng/mlDDU ABG pH (7.320-7.450) POC ABG pO2 (83-108) mmHg ABG Hemoglobin (12.0-17.5) ABG Oxyhemoglobin (94-98) ABG Sodium (136.0-145.0) mmol/L ABG Chloride (98-107) mmol/L ABG Glucose (65-95) mg/dL Sodium (137-145) mmol/L Potassium (3.6-5.0) mmol/L Chloride (98-107) mmol/L Carbon Dioxide (22-30) mmol/L BUN (7-17) mg/dL Creatinine (0.6-1.2) mg/dL Glucose (65-100) mg/dL POC Glucose 136 H (70-105) mg/dL Calcium (8.4-10.2) mg/dL Alkaline Phosphatase (35-129) units/L Albumin (3.9-5) g/dL Arterial Blood Glucose (65-95) mg/dL Crossmatch
[2021-04-07] MEDS ORDERED: VANCOMYCIN PHARMACY TO DOSE IV SCH (12:00)
--- NOTE | 2021-04-07 12:03 | Progress Note ---
Assessment and Plan Acute hypoxemic respiratory failure Acute asthma exacerbation Morbid obesity Crohn's disease Metabolic acidosis Acute kidney injury Coronavirus infection Pneumonia (CAP) Oropharyngeal dysphagia Obesity, if not mentioned above (Taheerah will need a tracheostomy once more stable) - lower extremity dopplers negative X 2 now - increased FiO2 to 60% - repeat ABG at 9 pm - continue care as below otherwise; - continue empiric Apixiban coverage for possible VTE as unable to get CTA - continue Seroquel at 300 mg p.o. bid - follow QTc 379 today and will follow prn - continue to wean vasopressors for target MAP > 65 mmHg - nephrology input appreciated; HD/UF for toxin and volume clearance - continue Daily SAT and SBT assessment as tolerated - continue to wean supplemental oxygen for target O2 sat's > 90% acutely - VAP bundle addressed - continue lung protective strategies - continue bronchodilators with pulmonary hygiene per RT - wean per pulmonary driven protocols otherwise - continue accuchecks with glycemic control per SSI (While critically ill target blood glucose of 140-180 mg/dL; avoid hypoglycemia) - sedation prn for target RASS 0 to -1 - avoid nephrotoxins, renally dose all medications - continue to avoid benzodiazepine's, reduce the possibility of delirium - AB's per ID rec's (s/p Cefepime) - prn analgesia per CPOT score - Maintenance of sleep-wake cycle, avoid delirium - continue enteral nutritional support at goal rate as tolerated - G.I. & VTE prophylaxis - PT/OT/ROM exercises - continue mobility protocols for pressure ulcer prophylaxis - Monitor hemodynamics closely - continue other care per attending / other consultants - discharge planning ongoing concurrently COVID SPECIFIC INTERVENTIONS - Isolation discontinued - s/p Actemra - Remdesivir as per ID/Pulmonary developed protocols (not a candidate) - continue systemic steroids for severe COVID-19 infection empirically - repeat COVID tests result negative - zinc and vitamin C supplementation - Monitor inflammatory markers per facility protocol - ferritin, Ddimer, CRP - therapeutic anticoagulation per system Protocol based on d-dimer and clinical considerations (VTE prophylaxis) - Continue contact and airborne isolation .... Re-evaluate in am & prn CONDITION: CRITICAL PROGNOSIS: GUARDED CODE STATUS: FULL CODE The high probability of a clinically significant, sudden or life-threatening deterioration of the [respiratory, cardiovascular, renal & neurologic] system(s) required my full and direct attention, intervention and personal management. The aggregate critical care time was [32] minutes without overlap. Time includes spent on; [x] Data Review and interpretation [x] Patient assessment and monitoring of vital signs [x] Documentation [x] Medication orders and management Subjective Date of service: 04/07/21 Principal diagnosis: Ac hypoxemic resp failure; AE-Asthma; SAI; Crohn's; COVID- 19; Pneumonia Interval history: Patient is seen today for: Acute hypoxemic respiratory failure; AE-Asthma; SAI; Crohn's disease; COVID-19 infection; Pneumonia (CAP) Seen and examined at bedside; 24hour events reviewed; nursing and respiratory care staff consulted; no adverse overnight events reported to me; resting in bed; remains on MVS; remains with low grade fevers; requiring high sedation and remains on Versed, fentanyl & Propofol despite addition of Seroquel; remains anuric Objective Vital Signs - 12hr 04/07/21 04/07/21 04/07/21 00:16 00:30 00:46 Temperature Pulse Rate 124 H 121 H 113 H Pulse Rate [ Throughout] Respiratory 35 H 36 H 31 H Rate Respiratory Rate [ Throughout] Blood Pressure O2 Sat by Pulse 94 94 94 Oximetry 04/07/21 04/07/21 04/07/21 01:00 01:16 01:30 Temperature Pulse Rate 108 H 107 H 110 H Pulse Rate [ Throughout] Respiratory 30 H 30 H 32 H Rate Respiratory Rate [ Throughout] Blood Pressure O2 Sat by Pulse 95 94 94 Oximetry 04/07/21 04/07/21 04/07/21 01:46 02:00 02:16 Temperature Pulse Rate 118 H 118 H 118 H Pulse Rate [ Throughout] Respiratory 34 H 40 H 35 H Rate Respiratory Rate [ Throughout] Blood Pressure O2 Sat by Pulse 93 95 97 Oximetry 04/07/21 04/07/21 04/07/21 02:30 02:46 03:00 Temperature Pulse Rate 120 H 116 H 118 H Pulse Rate [ Throughout] Respiratory 33 H 32 H 33 H Rate Respiratory Rate [ Throughout] Blood Pressure O2 Sat by Pulse 94 93 91 Oximetry 04/07/21 04/07/21 04/07/21 03:16 03:30 03:33 Temperature 101.1 F H Pulse Rate 122 H 120 H Pulse Rate [ Throughout] Respiratory 35 H 35 H Rate Respiratory Rate [ Throughout] Blood Pressure O2 Sat by Pulse 89 92 Oximetry 04/07/21 04/07/21 04/07/21 03:46 04:00 04:16 Temperature Pulse Rate 119 H 121 H 118 H Pulse Rate [ Throughout] Respiratory 35 H 33 H 33 H Rate Respiratory Rate [ Throughout] Blood Pressure O2 Sat by Pulse 94 91 91 Oximetry 04/07/21 04/07/21 04/07/21 04:22 04:30 04:46 Temperature Pulse Rate 118 H 122 H 116 H Pulse Rate [ Throughout] Respiratory 35 H 36 H Rate Respiratory Rate [ Throughout] Blood Pressure 134/81 O2 Sat by Pulse 90 83 L 95 Oximetry 04/07/21 04/07/21 04/07/21 05:00 05:16 05:30 Temperature Pulse Rate 116 H 115 H 115 H Pulse Rate [ Throughout] Respiratory 36 H 34 H 33 H Rate Respiratory Rate [ Throughout] Blood Pressure O2 Sat by Pulse 90 89 86 Oximetry 04/07/21 04/07/21 04/07/21 05:46 06:00 06:16 Temperature Pulse Rate 116 H 120 H Pulse Rate [ Throughout] Respiratory 35 H 37 H Rate Respiratory Rate [ Throughout] Blood Pressure O2 Sat by Pulse 87 82 L 81 L Oximetry 04/07/21 04/07/21 04/07/21 06:30 06:46 07:00 Temperature Pulse Rate 121 H 115 H 115 H Pulse Rate [ Throughout] Respiratory 39 H 38 H 36 H Rate Respiratory Rate [ Throughout] Blood Pressure O2 Sat by Pulse 78 L 87 87 Oximetry 04/07/21 04/07/21 04/07/21 07:16 07:30 07:42 Temperature 99.3 F Pulse Rate 119 H 120 H Pulse Rate [ Throughout] Respiratory 37 H 35 H Rate Respiratory Rate [ Throughout] Blood Pressure O2 Sat by Pulse 86 79 L Oximetry 04/07/21 04/07/21 04/07/21 07:46 08:00 08:37 Temperature Pulse Rate 117 H 118 H 120 H Pulse Rate [ Throughout] Respiratory 37 H 36 H Rate Respiratory Rate [ Throughout] Blood Pressure 168/85 O2 Sat by Pulse 92 88 93 Oximetry 04/07/21 08:38 Temperature Pulse Rate Pulse Rate [ 120 H Throughout] Respiratory Rate Respiratory 42 H Rate [ Throughout] Blood Pressure O2 Sat by Pulse Oximetry Constitutional: appears uncomfortable, other (morbidly obese female with mild ventilator dyssynchrony) Eyes: non-icteric, other (scleral erythema / bleeding is improving) ENT: oropharynx moist, other (ETT 25 cm BALJINDER) Neck: supple, no lymphadenopathy, no JVD, other (large circumference) Effort: mildly labored Ascultation: Bilateral: diminished breath sounds, rhonchi Percussion: Bilateral: not dull Cardiovascular: regular rate and rhythm Gastrointestinal: normoactive bowel sounds, soft, non-tender, non-distended (protuberant) Integumentary: rash ( ), other Extremities: no cyanosis, pulses normal, no ischemia or petechiae, edema (1+) Neurologic: non-focal exam (grossly), pupils equal and round, CN II-XII normal, motor strength normal and, other (sedated) Psychiatric: other (unasble to assess) CBC and BMP: 04/08/21 04:40 04/08/21 04:00 ABG, PT/INR, D-dimer: ABG ABG pH 7.303 (7.320-7.450) L 04/06/21 20:50 POC ABG pCO2 40.7 mmHg (32.0-48.0) 04/06/21 20:50 ABG pCO2 48.4 mm Hg 04/05/21 21:40 POC ABG pO2 67.9 mmHg (83-108) L 04/06/21 20:50 ABG pO2 65.6 mm Hg (80.0-90.0) L 04/05/21 21:40 POC ABG HCO3 19.7 04/06/21 20:50 ABG O2 Saturation 91.6 (0-100) 04/06/21 20:50 PT/INR, D-dimer PT 13.9 Sec. (12.2-14.9) 04/04/21 07:55 INR 0.96 (0.87-1.13) 04/04/21 07:55 D-Dimer 2178 ng/mlDDU (0-234) H 04/07/21 03:50 Abnormal lab findings: Abnormal Labs 03/13/21 03/13/21 03/13/21 13:26 13:26 15:40 WBC RBC Hgb Hct MCH 27 L MCHC RDW 17.0 H Plt Count Lymph % (Auto) [place] # (Auto) Eos # (Auto) Seg Neutrophils % Lymphocytes % (Manual) Eosinophils % (Manual) Basophils % (Manual) Nucleated RBC % Seg Neutrophils # Seg Neutrophils # Man Lymphocytes # (Manual) Monocytes # (Manual) Eosinophils # (Manual) Basophils # (Manual) Percent Retic PT INR Fibrinogen D-Dimer ABG pH POC ABG pCO2 POC ABG pO2 ABG pO2 ABG HCO3 ABG O2 Saturation ABG Base Excess ABG Hemoglobin ABG Oxyhemoglobin ABG Sodium ABG Potassium ABG Chloride ABG Glucose Oxyhemoglobin Carboxyhemoglobin Sodium 136 L Potassium Chloride Carbon Dioxide BUN Creatinine Glucose 125 H 130 H POC Glucose Hemoglobin A1c Calcium Phosphorus Magnesium AST ALT Alkaline Phosphatase Lactate Dehydrogenase 235 H C-Reactive Protein 4.30 H Total Protein Albumin Triglycerides Arterial Blood Glucose Arterial Blood Ionized Calcium Urine Creatinine Random Vancomycin Coronavirus (PCR) Crossmatch 03/13/21 03/14/21 03/14/21 21:33 03:35 06:21 WBC 20.0 H RBC Hgb Hct MCH 27 L MCHC RDW 17.5 H Plt Count Lymph % (Auto) 7.8 L [place] # (Auto) 1.3 H Eos # (Auto) Seg Neutrophils % 85.4 H Lymphocytes % (Manual) Eosinophils % (Manual) Basophils % (Manual) Nucleated RBC % Seg Neutrophils # 17.1 H Seg Neutrophils # Man Lymphocytes # (Manual) Monocytes # (Manual) Eosinophils # (Manual) Basophils # (Manual) Percent Retic PT INR Fibrinogen D-Dimer ABG pH 7.323 L 7.234 L POC ABG pCO2 POC ABG pO2 ABG pO2 69.8 L ABG HCO3 ABG O2 Saturation 92.9 L 94.9 L ABG Base Excess -3.3 L -5.4 L ABG Hemoglobin ABG Oxyhemoglobin ABG Sodium ABG Potassium ABG Chloride ABG Glucose Oxyhemoglobin 91.2 L 93.2 L Carboxyhemoglobin Sodium Potassium Chloride Carbon Dioxide BUN Creatinine Glucose POC Glucose Hemoglobin A1c Calcium Phosphorus Magnesium AST ALT Alkaline Phosphatase Lactate Dehydrogenase C-Reactive Protein Total Protein Albumin Triglycerides Arterial Blood Glucose Arterial Blood Ionized Calcium Urine Creatinine Random Vancomycin Coronavirus (PCR) Crossmatch 03/14/21 03/14/21 03/14/21 06:21 07:47 11:21 WBC RBC Hgb Hct MCH MCHC RDW Plt Count Lymph % (Auto) [place] # (Auto) Eos # (Auto) Seg Neutrophils % Lymphocytes % (Manual) Eosinophils % (Manual) Basophils % (Manual) Nucleated RBC % Seg Neutrophils # Seg Neutrophils # Man Lymphocytes # (Manual) Monocytes # (Manual) Eosinophils # (Manual) Basophils # (Manual) Percent Retic PT INR Fibrinogen D-Dimer ABG pH POC ABG pCO2 POC ABG pO2 ABG pO2 ABG HCO3 ABG O2 Saturation ABG Base Excess ABG Hemoglobin ABG Oxyhemoglobin ABG Sodium ABG Potassium ABG Chloride ABG Glucose Oxyhemoglobin Carboxyhemoglobin Sodium 136 L 136 L Potassium 6.2 H* D 5.4 H Chloride Carbon Dioxide 21 L 21 L BUN Creatinine 1.5 H D 1.8 H Glucose 144 H 141 H POC Glucose 147 H Hemoglobin A1c Calcium Phosphorus Magnesium AST ALT Alkaline Phosphatase Lactate Dehydrogenase C-Reactive Protein Total Protein 8.7 H 9.2 H Albumin 3.8 L Triglycerides Arterial Blood Glucose Arterial Blood Ionized Calcium Urine Creatinine Random Vancomycin Coronavirus (PCR) Crossmatch 03/14/21 03/14/21 03/14/21 17:29 17:50 18:35 WBC RBC Hgb Hct MCH MCHC RDW Plt Count Lymph % (Auto) [place] # (Auto) Eos # (Auto) Seg Neutrophils % Lymphocytes % (Manual) Eosinophils % (Manual) Basophils % (Manual) Nucleated RBC % Seg Neutrophils # Seg Neutrophils # Man Lymphocytes # (Manual) Monocytes # (Manual) Eosinophils # (Manual) Basophils # (Manual) Percent Retic PT INR Fibrinogen D-Dimer ABG pH POC ABG pCO2 POC ABG pO2 ABG pO2 ABG HCO3 ABG O2 Saturation ABG Base Excess ABG Hemoglobin ABG Oxyhemoglobin ABG Sodium ABG Potassium ABG Chloride ABG Glucose Oxyhemoglobin Carboxyhemoglobin Sodium 135 L Potassium 6.4 H* Chloride Carbon Dioxide 15 L BUN 26 H Creatinine 3.4 H D Glucose 165 H POC Glucose 209 H Hemoglobin A1c Calcium Phosphorus Magnesium AST ALT Alkaline Phosphatase Lactate Dehydrogenase C-Reactive Protein Total Protein Albumin Triglycerides Arterial Blood Glucose Arterial Blood Ionized Calcium Urine Creatinine 40.1 H Random Vancomycin Coronavirus (PCR) Crossmatch 03/14/21 03/14/21 03/14/21 18:46 22:23 23:52 WBC RBC Hgb Hct MCH MCHC RDW Plt Count Lymph % (Auto) [place] # (Auto) Eos # (Auto) Seg Neutrophils % Lymphocytes % (Manual) Eosinophils % (Manual) Basophils % (Manual) Nucleated RBC % Seg Neutrophils # Seg Neutrophils # Man Lymphocytes # (Manual) Monocytes # (Manual) Eosinophils # (Manual) Basophils # (Manual) Percent Retic PT INR Fibrinogen D-Dimer ABG pH 7.270 L POC ABG pCO2 POC ABG pO2 63.4 L ABG pO2 ABG HCO3 ABG O2 Saturation ABG Base Excess ABG Hemoglobin ABG Oxyhemoglobin 90.2 L ABG Sodium 134.9 L ABG Potassium 5.3 H ABG Chloride ABG Glucose 134 H Oxyhemoglobin Carboxyhemoglobin Sodium 136 L Potassium 5.2 H Chloride Carbon Dioxide 20 L BUN 29 H Creatinine 3.6 H Glucose 236 H POC Glucose 128 H Hemoglobin A1c Calcium Phosphorus Magnesium AST ALT Alkaline Phosphatase Lactate Dehydrogenase C-Reactive Protein Total Protein Albumin 3.2 L Triglycerides Arterial Blood Glucose 134 H Arterial Blood Ionized Calcium Urine Creatinine Random Vancomycin Coronavirus (PCR) Crossmatch 03/14/21 03/15/21 03/15/21 Unknown 05:00 05:09 WBC 22.5 H RBC Hgb Hct MCH 27 L MCHC RDW 17.6 H Plt Count Lymph % (Auto) [place] # (Auto) Eos # (Auto) Seg Neutrophils % Lymphocytes % (Manual) Eosinophils % (Manual) Basophils % (Manual) Nucleated RBC % Seg Neutrophils # Seg Neutrophils # Man Lymphocytes # (Manual) Monocytes # (Manual) Eosinophils # (Manual) Basophils # (Manual) Percent Retic PT INR Fibrinogen D-Dimer ABG pH POC ABG pCO2 POC ABG pO2 ABG pO2 ABG HCO3 ABG O2 Saturation ABG Base Excess ABG Hemoglobin ABG Oxyhemoglobin ABG Sodium ABG Potassium ABG Chloride ABG Glucose Oxyhemoglobin Carboxyhemoglobin Sodium Potassium Chloride Carbon Dioxide BUN Creatinine Glucose POC Glucose 116 H Hemoglobin A1c Calcium Phosphorus Magnesium AST ALT Alkaline Phosphatase Lactate Dehydrogenase C-Reactive Protein Total Protein Albumin Triglycerides Arterial Blood Glucose Arterial Blood Ionized Calcium Urine Creatinine Random Vancomycin Coronavirus (PCR) Positive A Crossmatch 03/15/21 03/15/21 03/15/21 05:09 05:09 05:09 WBC RBC Hgb Hct MCH MCHC RDW Plt Count Lymph % (Auto) [place] # (Auto) Eos # (Auto) Seg Neutrophils % Lymphocytes % (Manual) Eosinophils % (Manual) Basophils % (Manual) Nucleated RBC % Seg Neutrophils # Seg Neutrophils # Man Lymphocytes # (Manual) Monocytes # (Manual) Eosinophils # (Manual) Basophils # (Manual) Percent Retic PT INR Fibrinogen D-Dimer ABG pH POC ABG pCO2 POC ABG pO2 ABG pO2 ABG HCO3 ABG O2 Saturation ABG Base Excess ABG Hemoglobin ABG Oxyhemoglobin ABG Sodium ABG Potassium ABG Chloride ABG Glucose Oxyhemoglobin Carboxyhemoglobin Sodium 136 L Potassium 6.5 H* D Chloride Carbon Dioxide 17 L BUN 41 H Creatinine 5.3 H Glucose 128 H POC Glucose Hemoglobin A1c 6.3 H Calcium Phosphorus Magnesium AST ALT Alkaline Phosphatase Lactate Dehydrogenase C-Reactive Protein 12.10 H Total Protein Albumin 3.1 L Triglycerides Arterial Blood Glucose Arterial Blood Ionized Calcium Urine Creatinine Random Vancomycin Coronavirus (PCR) Crossmatch 03/15/21 03/15/21 03/15/21 10:00 21:50 23:39 WBC RBC Hgb Hct MCH MCHC RDW Plt Count Lymph % (Auto) [place] # (Auto) Eos # (Auto) Seg Neutrophils % Lymphocytes % (Manual) Eosinophils % (Manual) Basophils % (Manual) Nucleated RBC % Seg Neutrophils # Seg Neutrophils # Man Lymphocytes # (Manual) Monocytes # (Manual) Eosinophils # (Manual) Basophils # (Manual) Percent Retic PT INR Fibrinogen D-Dimer ABG pH 7.098 L POC ABG pCO2 72.7 H POC ABG pO2 ABG pO2 162.5 H ABG HCO3 ABG O2 Saturation ABG Base Excess ABG Hemoglobin 10.1 L ABG Oxyhemoglobin ABG Sodium ABG Potassium 5.7 H ABG Chloride ABG Glucose Oxyhemoglobin Carboxyhemoglobin 0.4 L Sodium Potassium Chloride Carbon Dioxide BUN Creatinine Glucose POC Glucose 156 H Hemoglobin A1c Calcium Phosphorus Magnesium AST ALT Alkaline Phosphatase Lactate Dehydrogenase C-Reactive Protein Total Protein Albumin Triglycerides Arterial Blood Glucose Arterial Blood Ionized Calcium Urine Creatinine Random Vancomycin Coronavirus (PCR) Crossmatch 03/16/21 03/16/21 03/16/21 05:00 05:30 05:30 WBC 16.7 H RBC 3.59 L Hgb 9.6 L Hct 30.1 L MCH 27 L MCHC RDW 17.5 H Plt Count Lymph % (Auto) [place] # (Auto) Eos # (Auto) Seg Neutrophils % Lymphocytes % (Manual) Eosinophils % (Manual) Basophils % (Manual) Nucleated RBC % Seg Neutrophils # Seg Neutrophils # Man Lymphocytes # (Manual) Monocytes # (Manual) Eosinophils # (Manual) Basophils # (Manual) Percent Retic PT INR Fibrinogen D-Dimer ABG pH POC ABG pCO2 POC ABG pO2 ABG pO2 ABG HCO3 ABG O2 Saturation ABG Base Excess ABG Hemoglobin ABG Oxyhemoglobin ABG Sodium ABG Potassium ABG Chloride ABG Glucose Oxyhemoglobin Carboxyhemoglobin Sodium Potassium Chloride Carbon Dioxide BUN 46 H Creatinine 6.2 H Glucose 131 H POC Glucose Hemoglobin A1c Calcium Phosphorus 6.00 H D Magnesium AST ALT Alkaline Phosphatase Lactate Dehydrogenase 318 H C-Reactive Protein 18.60 H Total Protein Albumin 3.0 L Triglycerides Arterial Blood Glucose Arterial Blood Ionized Calcium Urine Creatinine Random Vancomycin Coronavirus (PCR) Crossmatch 03/16/21 03/16/21 03/16/21 05:51 06:37 08:58 WBC RBC Hgb Hct MCH MCHC RDW Plt Count Lymph % (Auto) [place] # (Auto) Eos # (Auto) Seg Neutrophils % Lymphocytes % (Manual) Eosinophils % (Manual) Basophils % (Manual) Nucleated RBC % Seg Neutrophils # Seg Neutrophils # Man Lymphocytes # (Manual) Monocytes # (Manual) Eosinophils # (Manual) Basophils # (Manual) Percent Retic PT INR Fibrinogen D-Dimer 3041.12 H ABG pH POC ABG pCO2 POC ABG pO2 ABG pO2 141.5 H ABG HCO3 ABG O2 Saturation ABG Base Excess ABG Hemoglobin 9.7 L ABG Oxyhemoglobin ABG Sodium ABG Potassium ABG Chloride ABG Glucose Oxyhemoglobin Carboxyhemoglobin Sodium Potassium Chloride Carbon Dioxide BUN Creatinine Glucose POC Glucose 126 H Hemoglobin A1c Calcium Phosphorus Magnesium AST ALT Alkaline Phosphatase Lactate Dehydrogenase C-Reactive Protein Total Protein Albumin Triglycerides Arterial Blood Glucose Arterial Blood Ionized Calcium Urine Creatinine Random Vancomycin Coronavirus (PCR) Crossmatch 03/16/21 03/16/21 03/16/21 12:11 16:51 21:00 WBC RBC Hgb Hct MCH MCHC RDW Plt Count Lymph % (Auto) [place] # (Auto) Eos # (Auto) Seg Neutrophils % Lymphocytes % (Manual) Eosinophils % (Manual) Basophils % (Manual) Nucleated RBC % Seg Neutrophils # Seg Neutrophils # Man Lymphocytes # (Manual) Monocytes # (Manual) Eosinophils # (Manual) Basophils # (Manual) Percent Retic PT INR Fibrinogen D-Dimer ABG pH 7.239 L POC ABG pCO2 61.5 H POC ABG pO2 80.8 L ABG pO2 ABG HCO3 ABG O2 Saturation ABG Base Excess ABG Hemoglobin 11.4 L ABG Oxyhemoglobin 93.5 L ABG Sodium ABG Potassium 5.4 H ABG Chloride ABG Glucose 137 H Oxyhemoglobin Carboxyhemoglobin 0.2 L Sodium Potassium Chloride Carbon Dioxide BUN Creatinine Glucose POC Glucose 156 H 133 H Hemoglobin A1c Calcium Phosphorus Magnesium AST ALT Alkaline Phosphatase Lactate Dehydrogenase C-Reactive Protein Total Protein Albumin Triglycerides Arterial Blood Glucose 137 H Arterial Blood Ionized Calcium Urine Creatinine Random Vancomycin Coronavirus (PCR) Crossmatch 03/16/21 03/17/21 03/17/21 23:42 05:23 05:23 WBC 18.4 H RBC Hgb Hct MCH 27 L MCHC RDW 17.4 H Plt Count Lymph % (Auto) [place] # (Auto) Eos # (Auto) Seg Neutrophils % Lymphocytes % (Manual) Eosinophils % (Manual) Basophils % (Manual) Nucleated RBC % Seg Neutrophils # Seg Neutrophils # Man Lymphocytes # (Manual) Monocytes # (Manual) Eosinophils # (Manual) Basophils # (Manual) Percent Retic PT INR Fibrinogen D-Dimer ABG pH POC ABG pCO2 POC ABG pO2 ABG pO2 ABG HCO3 ABG O2 Saturation ABG Base Excess ABG Hemoglobin ABG Oxyhemoglobin ABG Sodium ABG Potassium ABG Chloride ABG Glucose Oxyhemoglobin Carboxyhemoglobin Sodium Potassium 5.2 H Chloride Carbon Dioxide 21 L BUN 79 H Creatinine 8.6 H Glucose 124 H POC Glucose 133 H Hemoglobin A1c Calcium Phosphorus Magnesium AST ALT Alkaline Phosphatase Lactate Dehydrogenase C-Reactive Protein Total Protein Albumin 3.2 L Triglycerides 285 H Arterial Blood Glucose Arterial Blood Ionized Calcium Urine Creatinine Random Vancomycin Coronavirus (PCR) Crossmatch 03/17/21 03/17/21 03/17/21 05:23 10:48 12:20 WBC RBC Hgb Hct MCH MCHC RDW Plt Count Lymph % (Auto) [place] # (Auto) Eos # (Auto) Seg Neutrophils % Lymphocytes % (Manual) Eosinophils % (Manual) Basophils % (Manual) Nucleated RBC % Seg Neutrophils # Seg Neutrophils # Man Lymphocytes # (Manual) Monocytes # (Manual) Eosinophils # (Manual) Basophils # (Manual) Percent Retic PT INR Fibrinogen D-Dimer ABG pH 7.294 L POC ABG pCO2 POC ABG pO2 ABG pO2 90.3 H ABG HCO3 ABG O2 Saturation ABG Base Excess ABG Hemoglobin 9.9 L ABG Oxyhemoglobin ABG Sodium ABG Potassium ABG Chloride ABG Glucose Oxyhemoglobin Carboxyhemoglobin Sodium Potassium 5.2 H Chloride Carbon Dioxide 21 L BUN 79 H Creatinine 8.4 H Glucose 125 H POC Glucose 171 H Hemoglobin A1c Calcium Phosphorus 9.90 H D Magnesium 2.40 H AST ALT Alkaline Phosphatase Lactate Dehydrogenase C-Reactive Protein Total Protein Albumin Triglycerides Arterial Blood Glucose Arterial Blood Ionized Calcium Urine Creatinine Random Vancomycin Coronavirus (PCR) Crossmatch 03/17/21 03/17/21 03/18/21 17:24 21:00 04:30 WBC RBC Hgb Hct MCH MCHC RDW Plt Count Lymph % (Auto) [place] # (Auto) Eos # (Auto) Seg Neutrophils % Lymphocytes % (Manual) Eosinophils % (Manual) Basophils % (Manual) Nucleated RBC % Seg Neutrophils # Seg Neutrophils # Man Lymphocytes # (Manual) Monocytes # (Manual) Eosinophils # (Manual) Basophils # (Manual) Percent Retic PT INR Fibrinogen D-Dimer 9953.09 H ABG pH 7.310 L POC ABG pCO2 54.5 H POC ABG pO2 62.3 L ABG pO2 ABG HCO3 ABG O2 Saturation ABG Base Excess ABG Hemoglobin 10.2 L ABG Oxyhemoglobin 88.6 L ABG Sodium ABG Potassium 4.7 H ABG Chloride ABG Glucose 99 H Oxyhemoglobin Carboxyhemoglobin 0.3 L Sodium Potassium Chloride Carbon Dioxide BUN Creatinine Glucose POC Glucose 121 H Hemoglobin A1c Calcium Phosphorus Magnesium AST ALT Alkaline Phosphatase Lactate Dehydrogenase C-Reactive Protein Total Protein Albumin Triglycerides Arterial Blood Glucose 99 H Arterial Blood Ionized Calcium 4.3 L Urine Creatinine Random Vancomycin Coronavirus (PCR) Crossmatch 03/18/21 03/18/21 03/18/21 04:30 04:30 11:34 WBC 12.8 H RBC 3.49 L Hgb 9.4 L Hct 29.3 L MCH 27 L MCHC RDW 17.4 H Plt Count Lymph % (Auto) [place] # (Auto) Eos # (Auto) Seg Neutrophils % Lymphocytes % (Manual) Eosinophils % (Manual) Basophils % (Manual) Nucleated RBC % Seg Neutrophils # Seg Neutrophils # Man Lymphocytes # (Manual) Monocytes # (Manual) Eosinophils # (Manual) Basophils # (Manual) Percent Retic PT INR Fibrinogen D-Dimer ABG pH POC ABG pCO2 POC ABG pO2 ABG pO2 ABG HCO3 ABG O2 Saturation ABG Base Excess ABG Hemoglobin ABG Oxyhemoglobin ABG Sodium ABG Potassium ABG Chloride ABG Glucose Oxyhemoglobin Carboxyhemoglobin Sodium Potassium Chloride Carbon Dioxide BUN 69 H Creatinine 7.3 H Glucose POC Glucose 114 H Hemoglobin A1c Calcium 8.2 L Phosphorus 7.60 H D Magnesium AST ALT Alkaline Phosphatase Lactate Dehydrogenase 477 H C-Reactive Protein 6.90 H Total Protein Albumin Triglycerides Arterial Blood Glucose Arterial Blood Ionized Calcium Urine Creatinine Random Vancomycin Coronavirus (PCR) Crossmatch 03/18/21 03/19/21 03/19/21 21:44 04:13 04:13 WBC 13.7 H RBC 3.32 L Hgb 9.0 L Hct 28.1 L MCH 27 L MCHC RDW 16.9 H Plt Count Lymph % (Auto) [place] # (Auto) Eos # (Auto) Seg Neutrophils % Lymphocytes % (Manual) Eosinophils % (Manual) Basophils % (Manual) Nucleated RBC % Seg Neutrophils # Seg Neutrophils # Man Lymphocytes # (Manual) Monocytes # (Manual) Eosinophils # (Manual) Basophils # (Manual) Percent Retic PT INR Fibrinogen D-Dimer ABG pH 7.290 L POC ABG pCO2 POC ABG pO2 ABG pO2 119.7 H ABG HCO3 28.0 H ABG O2 Saturation ABG Base Excess ABG Hemoglobin 9.6 L ABG Oxyhemoglobin ABG Sodium ABG Potassium ABG Chloride ABG Glucose Oxyhemoglobin Carboxyhemoglobin Sodium Potassium Chloride Carbon Dioxide BUN Creatinine Glucose POC Glucose Hemoglobin A1c Calcium Phosphorus Magnesium AST ALT Alkaline Phosphatase Lactate Dehydrogenase C-Reactive Protein Total Protein Albumin Triglycerides Arterial Blood Glucose Arterial Blood Ionized Calcium Urine Creatinine Random Vancomycin 43.5 H Coronavirus (PCR) Crossmatch 03/19/21 03/19/21 03/19/21 04:13 05:59 11:40 WBC RBC Hgb Hct MCH MCHC RDW Plt Count Lymph % (Auto) [place] # (Auto) Eos # (Auto) Seg Neutrophils % Lymphocytes % (Manual) Eosinophils % (Manual) Basophils % (Manual) Nucleated RBC % Seg Neutrophils # Seg Neutrophils # Man Lymphocytes # (Manual) Monocytes # (Manual) Eosinophils # (Manual) Basophils # (Manual) Percent Retic PT INR Fibrinogen D-Dimer ABG pH POC ABG pCO2 POC ABG pO2 ABG pO2 ABG HCO3 ABG O2 Saturation ABG Base Excess ABG Hemoglobin ABG Oxyhemoglobin ABG Sodium ABG Potassium ABG Chloride ABG Glucose Oxyhemoglobin Carboxyhemoglobin Sodium Potassium Chloride Carbon Dioxide BUN 55 H Creatinine 7.0 H Glucose POC Glucose 116 H 145 H Hemoglobin A1c Calcium 8.1 L Phosphorus 7.90 H Magnesium AST ALT Alkaline Phosphatase Lactate Dehydrogenase C-Reactive Protein Total Protein Albumin Triglycerides Arterial Blood Glucose Arterial Blood Ionized Calcium Urine Creatinine Random Vancomycin Coronavirus (PCR) Crossmatch 03/19/21 03/19/21 03/20/21 17:01 23:41 04:00 WBC 15.6 H RBC 3.55 L Hgb 9.6 L Hct MCH 27 L MCHC RDW 16.8 H Plt Count 139 L Lymph % (Auto) [place] # (Auto) Eos # (Auto) Seg Neutrophils % Lymphocytes % (Manual) Eosinophils % (Manual) Basophils % (Manual) Nucleated RBC % Seg Neutrophils # Seg Neutrophils # Man Lymphocytes # (Manual) Monocytes # (Manual) Eosinophils # (Manual) Basophils # (Manual) Percent Retic PT INR Fibrinogen D-Dimer ABG pH POC ABG pCO2 POC ABG pO2 ABG pO2 ABG HCO3 ABG O2 Saturation ABG Base Excess ABG Hemoglobin ABG Oxyhemoglobin ABG Sodium ABG Potassium ABG Chloride ABG Glucose Oxyhemoglobin Carboxyhemoglobin Sodium Potassium Chloride Carbon Dioxide BUN Creatinine Glucose POC Glucose 111 H 118 H Hemoglobin A1c Calcium Phosphorus Magnesium AST ALT Alkaline Phosphatase Lactate Dehydrogenase C-Reactive Protein Total Protein Albumin Triglycerides Arterial Blood Glucose Arterial Blood Ionized Calcium Urine Creatinine Random Vancomycin Coronavirus (PCR) Crossmatch 03/20/21 03/20/21 03/20/21 04:00 04:00 04:37 WBC RBC Hgb Hct MCH MCHC RDW Plt Count Lymph % (Auto) [place] # (Auto) Eos # (Auto) Seg Neutrophils % Lymphocytes % (Manual) Eosinophils % (Manual) Basophils % (Manual) Nucleated RBC % Seg Neutrophils # Seg Neutrophils # Man Lymphocytes # (Manual) Monocytes # (Manual) Eosinophils # (Manual) Basophils # (Manual) Percent Retic PT INR Fibrinogen D-Dimer > 38507 H ABG pH 7.306 L POC ABG pCO2 POC ABG pO2 ABG pO2 ABG HCO3 27.9 H ABG O2 Saturation ABG Base Excess ABG Hemoglobin 5.2 L ABG Oxyhemoglobin ABG Sodium ABG Potassium ABG Chloride ABG Glucose Oxyhemoglobin Carboxyhemoglobin Sodium Potassium 5.2 H Chloride 97.6 L Carbon Dioxide BUN 52 H Creatinine 6.2 H Glucose 104 H POC Glucose Hemoglobin A1c Calcium Phosphorus 8.60 H Magnesium AST ALT Alkaline Phosphatase Lactate Dehydrogenase C-Reactive Protein 6.90 H Total Protein Albumin Triglycerides Arterial Blood Glucose Arterial Blood Ionized Calcium Urine Creatinine Random Vancomycin Coronavirus (PCR) Crossmatch 03/20/21 03/20/21 03/20/21 13:50 17:46 17:56 WBC RBC Hgb Hct MCH MCHC RDW Plt Count Lymph % (Auto) [place] # (Auto) Eos # (Auto) Seg Neutrophils % Lymphocytes % (Manual) Eosinophils % (Manual) Basophils % (Manual) Nucleated RBC % Seg Neutrophils # Seg Neutrophils # Man Lymphocytes # (Manual) Monocytes # (Manual) Eosinophils # (Manual) Basophils # (Manual) Percent Retic PT INR Fibrinogen D-Dimer ABG pH POC ABG pCO2 POC ABG pO2 ABG pO2 ABG HCO3 ABG O2 Saturation ABG Base Excess ABG Hemoglobin ABG Oxyhemoglobin ABG Sodium ABG Potassium ABG Chloride ABG Glucose Oxyhemoglobin Carboxyhemoglobin Sodium Potassium Chloride Carbon Dioxide BUN 63 H 43 H Creatinine Glucose POC Glucose 145 H Hemoglobin A1c Calcium Phosphorus Magnesium AST ALT Alkaline Phosphatase Lactate Dehydrogenase C-Reactive Protein Total Protein Albumin Triglycerides Arterial Blood Glucose Arterial Blood Ionized Calcium Urine Creatinine Random Vancomycin Coronavirus (PCR) Crossmatch 03/20/21 03/21/21 03/21/21 23:18 06:58 06:58 WBC 14.4 H RBC 3.41 L Hgb 9.5 L Hct 28.6 L MCH MCHC RDW 17.4 H Plt Count 107 L Lymph % (Auto) [place] # (Auto) Eos # (Auto) Seg Neutrophils % Lymphocytes % (Manual) Eosinophils % (Manual) Basophils % (Manual) Nucleated RBC % Seg Neutrophils # Seg Neutrophils # Man Lymphocytes # (Manual) Monocytes # (Manual) Eosinophils # (Manual) Basophils # (Manual) Percent Retic PT INR Fibrinogen D-Dimer ABG pH POC ABG pCO2 POC ABG pO2 ABG pO2 ABG HCO3 ABG O2 Saturation ABG Base Excess ABG Hemoglobin ABG Oxyhemoglobin ABG Sodium ABG Potassium ABG Chloride ABG Glucose Oxyhemoglobin Carboxyhemoglobin Sodium Potassium Chloride Carbon Dioxide BUN 60 H Creatinine 7.7 H Glucose POC Glucose 106 H Hemoglobin A1c Calcium Phosphorus Magnesium AST ALT Alkaline Phosphatase Lactate Dehydrogenase C-Reactive Protein Total Protein Albumin Triglycerides Arterial Blood Glucose Arterial Blood Ionized Calcium Urine Creatinine Random Vancomycin Coronavirus (PCR) Crossmatch 03/21/21 03/21/21 03/21/21 11:11 18:04 Unknown WBC RBC Hgb Hct MCH MCHC RDW Plt Count Lymph % (Auto) [place] # (Auto) Eos # (Auto) Seg Neutrophils % Lymphocytes % (Manual) Eosinophils % (Manual) Basophils % (Manual) Nucleated RBC % Seg Neutrophils # Seg Neutrophils # Man Lymphocytes # (Manual) Monocytes # (Manual) Eosinophils # (Manual) Basophils # (Manual) Percent Retic PT INR Fibrinogen D-Dimer ABG pH 7.270 L POC ABG pCO2 58.7 H POC ABG pO2 76.9 L ABG pO2 ABG HCO3 ABG O2 Saturation ABG Base Excess ABG Hemoglobin 9.9 L ABG Oxyhemoglobin 92.4 L ABG Sodium 135.8 L ABG Potassium 4.6 H ABG Chloride ABG Glucose Oxyhemoglobin Carboxyhemoglobin 0.1 L Sodium Potassium Chloride Carbon Dioxide BUN Creatinine Glucose POC Glucose 109 H 141 H Hemoglobin A1c Calcium Phosphorus Magnesium AST ALT Alkaline Phosphatase Lactate Dehydrogenase C-Reactive Protein Total Protein Albumin Triglycerides Arterial Blood Glucose Arterial Blood Ionized Calcium 4.5 L Urine Creatinine Random Vancomycin Coronavirus (PCR) Crossmatch 03/22/21 03/22/21 03/22/21 03:09 07:10 10:00 WBC RBC Hgb Hct MCH MCHC RDW Plt Count Lymph % (Auto) [place] # (Auto) Eos # (Auto) Seg Neutrophils % Lymphocytes % (Manual) Eosinophils % (Manual) Basophils % (Manual) Nucleated RBC % Seg Neutrophils # Seg Neutrophils # Man Lymphocytes # (Manual) Monocytes # (Manual) Eosinophils # (Manual) Basophils # (Manual) Percent Retic PT INR Fibrinogen D-Dimer ABG pH 7.206 L 7.245 L POC ABG pCO2 55.6 H POC ABG pO2 ABG pO2 90.6 H ABG HCO3 ABG O2 Saturation ABG Base Excess -4.4 L ABG Hemoglobin 9.0 L 8.4 L ABG Oxyhemoglobin ABG Sodium 123.4 L ABG Potassium 5.6 H ABG Chloride ABG Glucose 106 H Oxyhemoglobin 94.5 L Carboxyhemoglobin 0.1 L Sodium Potassium 5.4 H Chloride 96.8 L Carbon Dioxide BUN 89 H Creatinine 8.7 H Glucose 131 H POC Glucose Hemoglobin A1c Calcium Phosphorus Magnesium AST ALT Alkaline Phosphatase Lactate Dehydrogenase C-Reactive Protein 9.40 H Total Protein Albumin Triglycerides Arterial Blood Glucose 106 H Arterial Blood Ionized Calcium Urine Creatinine Random Vancomycin Coronavirus (PCR) Crossmatch 03/22/21 03/22/21 03/22/21 10:00 12:37 13:19 WBC RBC 3.05 L Hgb 8.4 L Hct 25.5 L MCH MCHC RDW 17.5 H Plt Count 108 L Lymph % (Auto) [place] # (Auto) Eos # (Auto) Seg Neutrophils % Lymphocytes % (Manual) Eosinophils % (Manual) Basophils % (Manual) Nucleated RBC % Seg Neutrophils # Seg Neutrophils # Man Lymphocytes # (Manual) Monocytes # (Manual) Eosinophils # (Manual) Basophils # (Manual) Percent Retic PT INR Fibrinogen D-Dimer ABG pH POC ABG pCO2 POC ABG pO2 ABG pO2 ABG HCO3 ABG O2 Saturation ABG Base Excess ABG Hemoglobin ABG Oxyhemoglobin ABG Sodium ABG Potassium ABG Chloride ABG Glucose Oxyhemoglobin Carboxyhemoglobin Sodium Potassium Chloride Carbon Dioxide BUN Creatinine 8.7 H Glucose POC Glucose 140 H Hemoglobin A1c Calcium Phosphorus Magnesium AST ALT Alkaline Phosphatase Lactate Dehydrogenase C-Reactive Protein Total Protein Albumin Triglycerides Arterial Blood Glucose Arterial Blood Ionized Calcium Urine Creatinine Random Vancomycin Coronavirus (PCR) Crossmatch 03/22/21 03/22/21 03/22/21 13:40 17:14 18:21 WBC RBC Hgb Hct MCH MCHC RDW Plt Count Lymph % (Auto) [place] # (Auto) Eos # (Auto) Seg Neutrophils % Lymphocytes % (Manual) Eosinophils % (Manual) Basophils % (Manual) Nucleated RBC % Seg Neutrophils # Seg Neutrophils # Man Lymphocytes # (Manual) Monocytes # (Manual) Eosinophils # (Manual) Basophils # (Manual) Percent Retic PT 15.8 H INR 1.14 H Fibrinogen D-Dimer > 21008 H ABG pH POC ABG pCO2 POC ABG pO2 ABG pO2 ABG HCO3 ABG O2 Saturation ABG Base Excess ABG Hemoglobin ABG Oxyhemoglobin ABG Sodium ABG Potassium ABG Chloride ABG Glucose Oxyhemoglobin Carboxyhemoglobin Sodium Potassium Chloride Carbon Dioxide BUN Creatinine Glucose POC Glucose 117 H 112 H Hemoglobin A1c Calcium Phosphorus Magnesium AST ALT Alkaline Phosphatase Lactate Dehydrogenase C-Reactive Protein Total Protein Albumin Triglycerides Arterial Blood Glucose Arterial Blood Ionized Calcium Urine Creatinine Random Vancomycin Coronavirus (PCR) Crossmatch 03/22/21 03/22/21 03/23/21 21:25 22:57 04:30 WBC RBC Hgb Hct MCH MCHC RDW Plt Count Lymph % (Auto) [place] # (Auto) Eos # (Auto) Seg Neutrophils % Lymphocytes % (Manual) Eosinophils % (Manual) Basophils % (Manual) Nucleated RBC % Seg Neutrophils # Seg Neutrophils # Man Lymphocytes # (Manual) Monocytes # (Manual) Eosinophils # (Manual) Basophils # (Manual) Percent Retic PT INR Fibrinogen D-Dimer ABG pH 7.188 L* POC ABG pCO2 POC ABG pO2 ABG pO2 97.9 H ABG HCO3 ABG O2 Saturation ABG Base Excess -3.7 L ABG Hemoglobin 9.2 L ABG Oxyhemoglobin ABG Sodium ABG Potassium ABG Chloride ABG Glucose Oxyhemoglobin 94.4 L Carboxyhemoglobin Sodium Potassium Chloride Carbon Dioxide BUN Creatinine Glucose POC Glucose 106 H Hemoglobin A1c Calcium Phosphorus Magnesium AST ALT Alkaline Phosphatase Lactate Dehydrogenase C-Reactive Protein Total Protein Albumin Triglycerides 381 H Arterial Blood Glucose Arterial Blood Ionized Calcium Urine Creatinine Random Vancomycin Coronavirus (PCR) Crossmatch 03/23/21 03/23/21 03/23/21 04:30 04:30 05:37 WBC 20.1 H RBC 3.17 L Hgb 8.6 L Hct 27.2 L MCH 27 L MCHC RDW 17.4 H Plt Count 118 L Lymph % (Auto) [place] # (Auto) Eos # (Auto) Seg Neutrophils % Lymphocytes % (Manual) Eosinophils % (Manual) Basophils % (Manual) Nucleated RBC % Seg Neutrophils # Seg Neutrophils # Man Lymphocytes # (Manual) Monocytes # (Manual) Eosinophils # (Manual) Basophils # (Manual) Percent Retic PT INR Fibrinogen D-Dimer ABG pH POC ABG pCO2 POC ABG pO2 ABG pO2 ABG HCO3 ABG O2 Saturation ABG Base Excess ABG Hemoglobin ABG Oxyhemoglobin ABG Sodium ABG Potassium ABG Chloride ABG Glucose Oxyhemoglobin Carboxyhemoglobin Sodium Potassium 5.2 H Chloride 97.1 L Carbon Dioxide 21 L BUN 82 H Creatinine 9.1 H Glucose 109 H POC Glucose 130 H Hemoglobin A1c Calcium Phosphorus 10.80 H Magnesium 3.50 H AST ALT Alkaline Phosphatase Lactate Dehydrogenase C-Reactive Protein Total Protein Albumin Triglycerides Arterial Blood Glucose Arterial Blood Ionized Calcium Urine Creatinine Random Vancomycin Coronavirus (PCR) Crossmatch 03/23/21 03/23/21 03/23/21 08:44 11:30 16:09 WBC RBC Hgb Hct MCH MCHC RDW Plt Count Lymph % (Auto) [place] # (Auto) Eos # (Auto) Seg Neutrophils % Lymphocytes % (Manual) Eosinophils % (Manual) Basophils % (Manual) Nucleated RBC % Seg Neutrophils # Seg Neutrophils # Man Lymphocytes # (Manual) Monocytes # (Manual) Eosinophils # (Manual) Basophils # (Manual) Percent Retic PT INR Fibrinogen D-Dimer ABG pH 7.190 L POC ABG pCO2 57.9 H POC ABG pO2 79.2 L ABG pO2 ABG HCO3 ABG O2 Saturation ABG Base Excess ABG Hemoglobin 11.8 L ABG Oxyhemoglobin 92.3 L ABG Sodium 131.0 L ABG Potassium 5.0 H ABG Chloride ABG Glucose 122 H Oxyhemoglobin Carboxyhemoglobin 0.4 L Sodium Potassium Chloride Carbon Dioxide BUN Creatinine Glucose POC Glucose 129 H 148 H Hemoglobin A1c Calcium Phosphorus Magnesium AST ALT Alkaline Phosphatase Lactate Dehydrogenase C-Reactive Protein Total Protein Albumin Triglycerides Arterial Blood Glucose 122 H Arterial Blood Ionized Calcium 4.4 L Urine Creatinine Random Vancomycin Coronavirus (PCR) Crossmatch 03/23/21 03/24/21 03/24/21 21:00 03:35 04:00 WBC 17.8 H RBC 2.96 L Hgb 8.1 L Hct 25.0 L MCH 27 L MCHC RDW 17.7 H Plt Count 124 L Lymph % (Auto) [place] # (Auto) Eos # (Auto) Seg Neutrophils % Lymphocytes % (Manual) Eosinophils % (Manual) Basophils % (Manual) Nucleated RBC % Seg Neutrophils # Seg Neutrophils # Man Lymphocytes # (Manual) Monocytes # (Manual) Eosinophils # (Manual) Basophils # (Manual) Percent Retic PT INR Fibrinogen D-Dimer ABG pH 7.223 L POC ABG pCO2 50.3 H POC ABG pO2 114.4 H ABG pO2 ABG HCO3 ABG O2 Saturation ABG Base Excess ABG Hemoglobin 8.8 L ABG Oxyhemoglobin ABG Sodium 130.4 L ABG Potassium 5.1 H ABG Chloride ABG Glucose 126 H Oxyhemoglobin Carboxyhemoglobin 0.2 L Sodium Potassium Chloride Carbon Dioxide BUN Creatinine Glucose POC Glucose 148 H Hemoglobin A1c Calcium Phosphorus Magnesium AST ALT Alkaline Phosphatase Lactate Dehydrogenase C-Reactive Protein Total Protein Albumin Triglycerides Arterial Blood Glucose 126 H Arterial Blood Ionized Calcium 4.4 L Urine Creatinine Random Vancomycin Coronavirus (PCR) Crossmatch 03/24/21 03/24/21 03/24/21 04:00 06:49 12:29 WBC RBC Hgb Hct MCH MCHC RDW Plt Count Lymph % (Auto) [place] # (Auto) Eos # (Auto) Seg Neutrophils % Lymphocytes % (Manual) Eosinophils % (Manual) Basophils % (Manual) Nucleated RBC % Seg Neutrophils # Seg Neutrophils # Man Lymphocytes # (Manual) Monocytes # (Manual) Eosinophils # (Manual) Basophils # (Manual) Percent Retic PT INR Fibrinogen D-Dimer ABG pH POC ABG pCO2 POC ABG pO2 ABG pO2 ABG HCO3 ABG O2 Saturation ABG Base Excess ABG Hemoglobin ABG Oxyhemoglobin ABG Sodium ABG Potassium ABG Chloride ABG Glucose Oxyhemoglobin Carboxyhemoglobin Sodium Potassium Chloride 95.6 L Carbon Dioxide 20 L BUN 108 H Creatinine 10.8 H Glucose 155 H POC Glucose 136 H 142 H Hemoglobin A1c Calcium Phosphorus Magnesium AST ALT Alkaline Phosphatase Lactate Dehydrogenase C-Reactive Protein Total Protein Albumin Triglycerides Arterial Blood Glucose Arterial Blood Ionized Calcium Urine Creatinine Random Vancomycin Coronavirus (PCR) Crossmatch 03/24/21 03/25/21 03/25/21 21:35 00:15 05:51 WBC RBC Hgb Hct MCH MCHC RDW Plt Count Lymph % (Auto) [place] # (Auto) Eos # (Auto) Seg Neutrophils % Lymphocytes % (Manual) Eosinophils % (Manual) Basophils % (Manual) Nucleated RBC % Seg Neutrophils # Seg Neutrophils # Man Lymphocytes # (Manual) Monocytes # (Manual) Eosinophils # (Manual) Basophils # (Manual) Percent Retic PT INR Fibrinogen D-Dimer ABG pH 7.241 L POC ABG pCO2 POC ABG pO2 ABG pO2 72.4 L ABG HCO3 ABG O2 Saturation 90.3 L ABG Base Excess ABG Hemoglobin 7.9 L ABG Oxyhemoglobin ABG Sodium ABG Potassium ABG Chloride ABG Glucose Oxyhemoglobin 88.4 L Carboxyhemoglobin Sodium Potassium Chloride Carbon Dioxide BUN Creatinine Glucose POC Glucose 110 H 121 H Hemoglobin A1c Calcium Phosphorus Magnesium AST ALT Alkaline Phosphatase Lactate Dehydrogenase C-Reactive Protein Total Protein Albumin Triglycerides Arterial Blood Glucose Arterial Blood Ionized Calcium Urine Creatinine Random Vancomycin Coronavirus (PCR) Crossmatch 03/25/21 03/25/21 03/25/21 05:54 05:54 12:21 WBC 12.4 H RBC 2.52 L Hgb 6.9 L Hct 21.1 L MCH MCHC RDW 17.4 H Plt Count 102 L Lymph % (Auto) [place] # (Auto) Eos # (Auto) Seg Neutrophils % Lymphocytes % (Manual) Eosinophils % (Manual) Basophils % (Manual) Nucleated RBC % Seg Neutrophils # Seg Neutrophils # Man Lymphocytes # (Manual) Monocytes # (Manual) Eosinophils # (Manual) Basophils # (Manual) Percent Retic PT INR Fibrinogen D-Dimer ABG pH POC ABG pCO2 POC ABG pO2 ABG pO2 ABG HCO3 ABG O2 Saturation ABG Base Excess ABG Hemoglobin ABG Oxyhemoglobin ABG Sodium ABG Potassium ABG Chloride ABG Glucose Oxyhemoglobin Carboxyhemoglobin Sodium Potassium Chloride 96.7 L Carbon Dioxide BUN 81 H Creatinine 8.1 H Glucose 116 H POC Glucose 138 H Hemoglobin A1c Calcium 8.2 L Phosphorus Magnesium AST ALT Alkaline Phosphatase Lactate Dehydrogenase C-Reactive Protein Total Protein Albumin Triglycerides Arterial Blood Glucose Arterial Blood Ionized Calcium Urine Creatinine Random Vancomycin Coronavirus (PCR) Crossmatch 03/25/21 03/25/21 03/25/21 13:45 17:32 21:30 WBC RBC Hgb Hct MCH MCHC RDW Plt Count Lymph % (Auto) [place] # (Auto) Eos # (Auto) Seg Neutrophils % Lymphocytes % (Manual) Eosinophils % (Manual) Basophils % (Manual) Nucleated RBC % Seg Neutrophils # Seg Neutrophils # Man Lymphocytes # (Manual) Monocytes # (Manual) Eosinophils # (Manual) Basophils # (Manual) Percent Retic PT INR Fibrinogen D-Dimer ABG pH POC ABG pCO2 POC ABG pO2 ABG pO2 70.2 L ABG HCO3 ABG O2 Saturation ABG Base Excess ABG Hemoglobin 6.8 L ABG Oxyhemoglobin ABG Sodium ABG Potassium ABG Chloride ABG Glucose Oxyhemoglobin 94.5 L Carboxyhemoglobin Sodium Potassium Chloride Carbon Dioxide BUN Creatinine Glucose POC Glucose 110 H Hemoglobin A1c Calcium Phosphorus Magnesium AST ALT Alkaline Phosphatase Lactate Dehydrogenase C-Reactive Protein Total Protein Albumin Triglycerides Arterial Blood Glucose Arterial Blood Ionized Calcium Urine Creatinine Random Vancomycin Coronavirus (PCR) Crossmatch See Detail 03/25/21 03/25/21 03/26/21 23:29 Unknown 05:15 WBC 12.4 H 14.0 H RBC 2.49 L 2.83 L Hgb 6.8 L 7.6 L Hct 20.9 L 23.6 L MCH 27 L 27 L MCHC RDW 18.0 H 17.1 H Plt Count 107 L 116 L Lymph % (Auto) [place] # (Auto) Eos # (Auto) Seg Neutrophils % Lymphocytes % (Manual) Eosinophils % (Manual) Basophils % (Manual) Nucleated RBC % Seg Neutrophils # Seg Neutrophils # Man Lymphocytes # (Manual) Monocytes # (Manual) Eosinophils # (Manual) Basophils # (Manual) Percent Retic PT INR Fibrinogen D-Dimer ABG pH POC ABG pCO2 POC ABG pO2 ABG pO2 ABG HCO3 ABG O2 Saturation ABG Base Excess ABG Hemoglobin ABG Oxyhemoglobin ABG Sodium ABG Potassium ABG Chloride ABG Glucose Oxyhemoglobin Carboxyhemoglobin Sodium Potassium Chloride Carbon Dioxide BUN Creatinine Glucose POC Glucose 113 H Hemoglobin A1c Calcium Phosphorus Magnesium AST ALT Alkaline Phosphatase Lactate Dehydrogenase C-Reactive Protein Total Protein Albumin Triglycerides Arterial Blood Glucose Arterial Blood Ionized Calcium Urine Creatinine Random Vancomycin Coronavirus (PCR) Crossmatch 03/26/21 03/26/21 03/26/21 05:15 05:35 09:50 WBC RBC Hgb Hct MCH MCHC RDW Plt Count Lymph % (Auto) [place] # (Auto) Eos # (Auto) Seg Neutrophils % Lymphocytes % (Manual) Eosinophils % (Manual) Basophils % (Manual) Nucleated RBC % Seg Neutrophils # Seg Neutrophils # Man Lymphocytes # (Manual) Monocytes # (Manual) Eosinophils # (Manual) Basophils # (Manual) Percent Retic PT INR Fibrinogen D-Dimer ABG pH POC ABG pCO2 POC ABG pO2 ABG pO2 79.9 L ABG HCO3 ABG O2 Saturation ABG Base Excess ABG Hemoglobin 7.1 L ABG Oxyhemoglobin ABG Sodium ABG Potassium ABG Chloride ABG Glucose Oxyhemoglobin 94.9 L Carboxyhemoglobin Sodium Potassium 3.4 L Chloride Carbon Dioxide BUN 70 H Creatinine 7.3 H Glucose 142 H POC Glucose 130 H Hemoglobin A1c Calcium 8.2 L Phosphorus Magnesium AST ALT Alkaline Phosphatase Lactate Dehydrogenase C-Reactive Protein Total Protein Albumin Triglycerides 254 H Arterial Blood Glucose Arterial Blood Ionized Calcium Urine Creatinine Random Vancomycin Coronavirus (PCR) Crossmatch 03/26/21 03/26/21 03/26/21 11:45 16:36 23:33 WBC RBC Hgb Hct MCH MCHC RDW Plt Count Lymph % (Auto) [place] # (Auto) Eos # (Auto) Seg Neutrophils % Lymphocytes % (Manual) Eosinophils % (Manual) Basophils % (Manual) Nucleated RBC % Seg Neutrophils # Seg Neutrophils # Man Lymphocytes # (Manual) Monocytes # (Manual) Eosinophils # (Manual) Basophils # (Manual) Percent Retic PT INR Fibrinogen D-Dimer ABG pH POC ABG pCO2 POC ABG pO2 ABG pO2 ABG HCO3 ABG O2 Saturation ABG Base Excess ABG Hemoglobin ABG Oxyhemoglobin ABG Sodium ABG Potassium ABG Chloride ABG Glucose Oxyhemoglobin Carboxyhemoglobin Sodium Potassium Chloride Carbon Dioxide BUN Creatinine Glucose POC Glucose 123 H 121 H 120 H Hemoglobin A1c Calcium Phosphorus Magnesium AST ALT Alkaline Phosphatase Lactate Dehydrogenase C-Reactive Protein Total Protein Albumin Triglycerides Arterial Blood Glucose Arterial Blood Ionized Calcium Urine Creatinine Random Vancomycin Coronavirus (PCR) Crossmatch 03/27/21 03/27/21 03/27/21 03:20 04:14 08:20 WBC 13.2 H RBC 2.82 L Hgb 7.9 L Hct 23.5 L MCH MCHC RDW 17.3 H Plt Count 125 L Lymph % (Auto) [place] # (Auto) Eos # (Auto) Seg Neutrophils % Lymphocytes % (Manual) Eosinophils % (Manual) Basophils % (Manual) Nucleated RBC % Seg Neutrophils # Seg Neutrophils # Man Lymphocytes # (Manual) Monocytes # (Manual) Eosinophils # (Manual) Basophils # (Manual) Percent Retic PT INR Fibrinogen D-Dimer ABG pH POC ABG pCO2 50.0 H POC ABG pO2 58.3 L ABG pO2 ABG HCO3 ABG O2 Saturation ABG Base Excess ABG Hemoglobin 11.3 L ABG Oxyhemoglobin 88.5 L ABG Sodium ABG Potassium ABG Chloride ABG Glucose 132 H Oxyhemoglobin Carboxyhemoglobin 0.2 L Sodium Potassium Chloride Carbon Dioxide BUN Creatinine Glucose POC Glucose 119 H Hemoglobin A1c Calcium Phosphorus Magnesium AST ALT Alkaline Phosphatase Lactate Dehydrogenase C-Reactive Protein Total Protein Albumin Triglycerides Arterial Blood Glucose 132 H Arterial Blood Ionized Calcium Urine Creatinine Random Vancomycin Coronavirus (PCR) Crossmatch 03/27/21 03/27/21 03/27/21 08:20 11:39 17:32 WBC RBC Hgb Hct MCH MCHC RDW Plt Count Lymph % (Auto) [place] # (Auto) Eos # (Auto) Seg Neutrophils % Lymphocytes % (Manual) Eosinophils % (Manual) Basophils % (Manual) Nucleated RBC % Seg Neutrophils # Seg Neutrophils # Man Lymphocytes # (Manual) Monocytes # (Manual) Eosinophils # (Manual) Basophils # (Manual) Percent Retic PT INR Fibrinogen D-Dimer ABG pH POC ABG pCO2 POC ABG pO2 ABG pO2 ABG HCO3 ABG O2 Saturation ABG Base Excess ABG Hemoglobin ABG Oxyhemoglobin ABG Sodium ABG Potassium ABG Chloride ABG Glucose Oxyhemoglobin Carboxyhemoglobin Sodium Potassium Chloride Carbon Dioxide BUN 57 H Creatinine 6.8 H Glucose 131 H POC Glucose 121 H 126 H Hemoglobin A1c Calcium Phosphorus Magnesium AST ALT Alkaline Phosphatase Lactate Dehydrogenase C-Reactive Protein Total Protein Albumin Triglycerides Arterial Blood Glucose Arterial Blood Ionized Calcium Urine Creatinine Random Vancomycin Coronavirus (PCR) Crossmatch 03/28/21 03/28/21 03/28/21 00:10 04:45 05:25 WBC RBC Hgb Hct MCH MCHC RDW Plt Count Lymph % (Auto) [place] # (Auto) Eos # (Auto) Seg Neutrophils % Lymphocytes % (Manual) Eosinophils % (Manual) Basophils % (Manual) Nucleated RBC % Seg Neutrophils # Seg Neutrophils # Man Lymphocytes # (Manual) Monocytes # (Manual) Eosinophils # (Manual) Basophils # (Manual) Percent Retic PT INR Fibrinogen D-Dimer ABG pH POC ABG pCO2 POC ABG pO2 ABG pO2 57.6 L ABG HCO3 27.1 H ABG O2 Saturation 88.5 L ABG Base Excess ABG Hemoglobin ABG Oxyhemoglobin ABG Sodium ABG Potassium ABG Chloride ABG Glucose Oxyhemoglobin 86.6 L Carboxyhemoglobin Sodium Potassium Chloride Carbon Dioxide BUN Creatinine Glucose POC Glucose 113 H 121 H Hemoglobin A1c Calcium Phosphorus Magnesium AST ALT Alkaline Phosphatase Lactate Dehydrogenase C-Reactive Protein Total Protein Albumin Triglycerides Arterial Blood Glucose Arterial Blood Ionized Calcium Urine Creatinine Random Vancomycin Coronavirus (PCR) Crossmatch 03/28/21 03/28/21 03/28/21 09:37 09:37 11:48 WBC 16.3 H RBC 2.92 L Hgb 8.2 L Hct 24.8 L MCH MCHC RDW 17.5 H Plt Count Lymph % (Auto) 10.7 L [place] # (Auto) 0.9 H Eos # (Auto) 0.6 H Seg Neutrophils % 80.0 H Lymphocytes % (Manual) Eosinophils % (Manual) Basophils % (Manual) Nucleated RBC % Seg Neutrophils # 13.0 H Seg Neutrophils # Man Lymphocytes # (Manual) Monocytes # (Manual) Eosinophils # (Manual) Basophils # (Manual) Percent Retic PT INR Fibrinogen D-Dimer ABG pH POC ABG pCO2 POC ABG pO2 ABG pO2 ABG HCO3 ABG O2 Saturation ABG Base Excess ABG Hemoglobin ABG Oxyhemoglobin ABG Sodium ABG Potassium ABG Chloride ABG Glucose Oxyhemoglobin Carboxyhemoglobin Sodium Potassium Chloride Carbon Dioxide BUN 61 H Creatinine 7.7 H Glucose 148 H POC Glucose 123 H Hemoglobin A1c Calcium Phosphorus Magnesium AST ALT Alkaline Phosphatase Lactate Dehydrogenase C-Reactive Protein Total Protein Albumin Triglycerides Arterial Blood Glucose Arterial Blood Ionized Calcium Urine Creatinine Random Vancomycin Coronavirus (PCR) Crossmatch 03/28/21 03/28/2121 17:33 21:08 23:38 WBC RBC Hgb Hct MCH MCHC RDW Plt Count Lymph % (Auto) [place] # (Auto) Eos # (Auto) Seg Neutrophils % Lymphocytes % (Manual) Eosinophils % (Manual) Basophils % (Manual) Nucleated RBC % Seg Neutrophils # Seg Neutrophils # Man Lymphocytes # (Manual) Monocytes # (Manual) Eosinophils # (Manual) Basophils # (Manual) Percent Retic PT INR Fibrinogen D-Dimer ABG pH POC ABG pCO2 POC ABG pO2 80.5 L ABG pO2 ABG HCO3 ABG O2 Saturation ABG Base Excess ABG Hemoglobin 9.5 L ABG Oxyhemoglobin ABG Sodium 133.3 L ABG Potassium ABG Chloride ABG Glucose 134 H Oxyhemoglobin Carboxyhemoglobin 0.3 L Sodium Potassium Chloride Carbon Dioxide BUN Creatinine Glucose POC Glucose 128 H 112 H Hemoglobin A1c Calcium Phosphorus Magnesium AST ALT Alkaline Phosphatase Lactate Dehydrogenase C-Reactive Protein Total Protein Albumin Triglycerides Arterial Blood Glucose 134 H Arterial Blood Ionized Calcium Urine Creatinine Random Vancomycin Coronavirus (PCR) Crossmatch 03/29/21 03/29/21 03/29/21 04:45 04:45 04:45 WBC 17.5 H RBC 3.15 L Hgb 8.8 L Hct 27.2 L MCH MCHC RDW 17.9 H Plt Count 132 L Lymph % (Auto) [place] # (Auto) Eos # (Auto) Seg Neutrophils % Lymphocytes % (Manual) Eosinophils % (Manual) Basophils % (Manual) Nucleated RBC % Seg Neutrophils # Seg Neutrophils # Man Lymphocytes # (Manual) Monocytes # (Manual) Eosinophils # (Manual) Basophils # (Manual) Percent Retic PT INR Fibrinogen D-Dimer ABG pH POC ABG pCO2 POC ABG pO2 ABG pO2 ABG HCO3 ABG O2 Saturation ABG Base Excess ABG Hemoglobin ABG Oxyhemoglobin ABG Sodium ABG Potassium ABG Chloride ABG Glucose Oxyhemoglobin Carboxyhemoglobin Sodium Potassium Chloride 97.7 L Carbon Dioxide 21 L BUN 78 H Creatinine 9.5 H Glucose 132 H POC Glucose Hemoglobin A1c Calcium Phosphorus Magnesium AST ALT Alkaline Phosphatase Lactate Dehydrogenase C-Reactive Protein Total Protein Albumin 2.2 L Triglycerides 385 H Arterial Blood Glucose Arterial Blood Ionized Calcium Urine Creatinine Random Vancomycin Coronavirus (PCR) Crossmatch 03/29/21 03/29/21 03/29/21 11:35 16:50 21:06 WBC RBC Hgb Hct MCH MCHC RDW Plt Count Lymph % (Auto) [place] # (Auto) Eos # (Auto) Seg Neutrophils % Lymphocytes % (Manual) Eosinophils % (Manual) Basophils % (Manual) Nucleated RBC % Seg Neutrophils # Seg Neutrophils # Man Lymphocytes # (Manual) Monocytes # (Manual) Eosinophils # (Manual) Basophils # (Manual) Percent Retic PT INR Fibrinogen D-Dimer ABG pH POC ABG pCO2 POC ABG pO2 ABG pO2 64.9 L ABG HCO3 ABG O2 Saturation ABG Base Excess -5.2 L ABG Hemoglobin ABG Oxyhemoglobin ABG Sodium ABG Potassium ABG Chloride ABG Glucose Oxyhemoglobin 85.1 L Carboxyhemoglobin Sodium Potassium Chloride Carbon Dioxide BUN Creatinine Glucose POC Glucose 148 H 133 H Hemoglobin A1c Calcium Phosphorus Magnesium AST ALT Alkaline Phosphatase Lactate Dehydrogenase C-Reactive Protein Total Protein Albumin Triglycerides Arterial Blood Glucose Arterial Blood Ionized Calcium Urine Creatinine Random Vancomycin Coronavirus (PCR) Crossmatch 03/29/21 03/30/21 03/30/21 Unknown 00:13 04:00 WBC 15.7 H RBC 3.18 L Hgb 8.6 L Hct 27.3 L MCH 27 L MCHC RDW 18.0 H Plt Count 86 L Lymph % (Auto) [place] # (Auto) Eos # (Auto) Seg Neutrophils % Lymphocytes % (Manual) Eosinophils % (Manual) Basophils % (Manual) Nucleated RBC % Seg Neutrophils # Seg Neutrophils # Man Lymphocytes # (Manual) Monocytes # (Manual) Eosinophils # (Manual) Basophils # (Manual) Percent Retic PT INR Fibrinogen D-Dimer ABG pH 7.258 L POC ABG pCO2 POC ABG pO2 ABG pO2 ABG HCO3 ABG O2 Saturation ABG Base Excess -4.9 L ABG Hemoglobin 8.8 L ABG Oxyhemoglobin ABG Sodium ABG Potassium ABG Chloride ABG Glucose Oxyhemoglobin 93.9 L Carboxyhemoglobin Sodium Potassium Chloride Carbon Dioxide BUN Creatinine Glucose POC Glucose 129 H Hemoglobin A1c Calcium Phosphorus Magnesium AST ALT Alkaline Phosphatase Lactate Dehydrogenase C-Reactive Protein Total Protein Albumin Triglycerides Arterial Blood Glucose Arterial Blood Ionized Calcium Urine Creatinine Random Vancomycin Coronavirus (PCR) Crossmatch 03/30/21 03/30/21 03/30/21 04:00 04:00 06:02 WBC RBC Hgb Hct MCH MCHC RDW Plt Count Lymph % (Auto) [place] # (Auto) Eos # (Auto) Seg Neutrophils % Lymphocytes % (Manual) Eosinophils % (Manual) Basophils % (Manual) Nucleated RBC % Seg Neutrophils # Seg Neutrophils # Man Lymphocytes # (Manual) Monocytes # (Manual) Eosinophils # (Manual) Basophils # (Manual) Percent Retic PT INR Fibrinogen D-Dimer 2607.12 H ABG pH POC ABG pCO2 POC ABG pO2 ABG pO2 ABG HCO3 ABG O2 Saturation ABG Base Excess ABG Hemoglobin ABG Oxyhemoglobin ABG Sodium ABG Potassium ABG Chloride ABG Glucose Oxyhemoglobin Carboxyhemoglobin Sodium 133 L Potassium 5.2 H D Chloride 91.5 L Carbon Dioxide 18 L BUN 101 H Creatinine 10.6 H Glucose 149 H POC Glucose 130 H Hemoglobin A1c Calcium Phosphorus 10.30 H Magnesium AST ALT Alkaline Phosphatase Lactate Dehydrogenase C-Reactive Protein 21.50 H Total Protein Albumin Triglycerides Arterial Blood Glucose Arterial Blood Ionized Calcium Urine Creatinine Random Vancomycin Coronavirus (PCR) Crossmatch 03/30/21 03/30/21 03/30/21 10:36 11:48 17:20 WBC RBC Hgb Hct MCH MCHC RDW Plt Count Lymph % (Auto) [place] # (Auto) Eos # (Auto) Seg Neutrophils % Lymphocytes % (Manual) Eosinophils % (Manual) Basophils % (Manual) Nucleated RBC % Seg Neutrophils # Seg Neutrophils # Man Lymphocytes # (Manual) Monocytes # (Manual) Eosinophils # (Manual) Basophils # (Manual) Percent Retic PT INR Fibrinogen D-Dimer ABG pH 7.224 L POC ABG pCO2 49.1 H POC ABG pO2 61.5 L ABG pO2 ABG HCO3 ABG O2 Saturation ABG Base Excess ABG Hemoglobin 10.2 L ABG Oxyhemoglobin 86.2 L ABG Sodium 129.6 L ABG Potassium 5.4 H ABG Chloride 96.0 L ABG Glucose 161 H Oxyhemoglobin Carboxyhemoglobin Sodium Potassium Chloride Carbon Dioxide BUN Creatinine Glucose POC Glucose 163 H 130 H Hemoglobin A1c Calcium Phosphorus Magnesium AST ALT Alkaline Phosphatase Lactate Dehydrogenase C-Reactive Protein Total Protein Albumin Triglycerides Arterial Blood Glucose 161 H Arterial Blood Ionized Calcium 4.4 L Urine Creatinine Random Vancomycin Coronavirus (PCR) Crossmatch 03/30/21 03/31/21 03/31/21 23:49 00:28 05:20 WBC 17.3 H RBC 2.99 L Hgb 8.2 L Hct 25.3 L MCH 27 L MCHC RDW 18.3 H Plt Count 126 L Lymph % (Auto) [place] # (Auto) Eos # (Auto) Seg Neutrophils % Lymphocytes % (Manual) Eosinophils % (Manual) Basophils % (Manual) Nucleated RBC % Seg Neutrophils # Seg Neutrophils # Man Lymphocytes # (Manual) Monocytes # (Manual) Eosinophils # (Manual) Basophils # (Manual) Percent Retic PT INR Fibrinogen D-Dimer ABG pH 7.249 L POC ABG pCO2 POC ABG pO2 77.7 L ABG pO2 ABG HCO3 ABG O2 Saturation ABG Base Excess ABG Hemoglobin 9.0 L ABG Oxyhemoglobin 92.9 L ABG Sodium 130.4 L ABG Potassium 4.7 H ABG Chloride ABG Glucose 166 H Oxyhemoglobin Carboxyhemoglobin 0.4 L Sodium Potassium Chloride Carbon Dioxide BUN Creatinine Glucose POC Glucose 143 H Hemoglobin A1c Calcium Phosphorus Magnesium AST ALT Alkaline Phosphatase Lactate Dehydrogenase C-Reactive Protein Total Protein Albumin Triglycerides Arterial Blood Glucose 166 H Arterial Blood Ionized Calcium 4.3 L Urine Creatinine Random Vancomycin Coronavirus (PCR) Crossmatch 03/31/21 03/31/21 03/31/21 05:20 06:18 09:44 WBC RBC Hgb Hct MCH MCHC RDW Plt Count Lymph % (Auto) [place] # (Auto) Eos # (Auto) Seg Neutrophils % Lymphocytes % (Manual) Eosinophils % (Manual) Basophils % (Manual) Nucleated RBC % Seg Neutrophils # Seg Neutrophils # Man Lymphocytes # (Manual) Monocytes # (Manual) Eosinophils # (Manual) Basophils # (Manual) Percent Retic PT INR Fibrinogen D-Dimer ABG pH 7.247 L POC ABG pCO2 POC ABG pO2 ABG pO2 ABG HCO3 ABG O2 Saturation 94.4 L ABG Base Excess -5.1 L ABG Hemoglobin 8.2 L ABG Oxyhemoglobin ABG Sodium ABG Potassium ABG Chloride ABG Glucose Oxyhemoglobin 92.4 L Carboxyhemoglobin Sodium Potassium Chloride Carbon Dioxide BUN Creatinine Glucose POC Glucose 155 H Hemoglobin A1c Calcium Phosphorus 8.20 H D Magnesium AST ALT Alkaline Phosphatase Lactate Dehydrogenase C-Reactive Protein Total Protein Albumin Triglycerides Arterial Blood Glucose Arterial Blood Ionized Calcium Urine Creatinine Random Vancomycin Coronavirus (PCR) Crossmatch 03/31/21 03/31/21 03/31/21 09:49 09:55 09:55 WBC RBC Hgb Hct MCH MCHC RDW Plt Count Lymph % (Auto) [place] # (Auto) Eos # (Auto) Seg Neutrophils % Lymphocytes % (Manual) Eosinophils % (Manual) Basophils % (Manual) Nucleated RBC % Seg Neutrophils # Seg Neutrophils # Man Lymphocytes # (Manual) Monocytes # (Manual) Eosinophils # (Manual) Basophils # (Manual) Percent Retic 4.52 H PT 16.5 H INR 1.20 H Fibrinogen D-Dimer ABG pH POC ABG pCO2 POC ABG pO2 ABG pO2 ABG HCO3 ABG O2 Saturation ABG Base Excess ABG Hemoglobin ABG Oxyhemoglobin ABG Sodium ABG Potassium ABG Chloride ABG Glucose Oxyhemoglobin Carboxyhemoglobin Sodium 133 L Potassium Chloride 92.8 L Carbon Dioxide 20 L BUN 87 H Creatinine 8.9 H Glucose 177 H POC Glucose Hemoglobin A1c Calcium 8.2 L Phosphorus Magnesium AST 169 H ALT Alkaline Phosphatase 187 H Lactate Dehydrogenase C-Reactive Protein Total Protein Albumin 2.3 L Triglycerides Arterial Blood Glucose Arterial Blood Ionized Calcium Urine Creatinine Random Vancomycin Coronavirus (PCR) Crossmatch 03/31/21 03/31/21 03/31/21 09:55 09:55 11:25 WBC RBC Hgb Hct MCH MCHC RDW Plt Count Lymph % (Auto) [place] # (Auto) Eos # (Auto) Seg Neutrophils % Lymphocytes % (Manual) Eosinophils % (Manual) Basophils % (Manual) Nucleated RBC % Seg Neutrophils # Seg Neutrophils # Man Lymphocytes # (Manual) Monocytes # (Manual) Eosinophils # (Manual) Basophils # (Manual) Percent Retic PT INR Fibrinogen 491 H D-Dimer ABG pH POC ABG pCO2 POC ABG pO2 ABG pO2 ABG HCO3 ABG O2 Saturation ABG Base Excess ABG Hemoglobin ABG Oxyhemoglobin ABG Sodium ABG Potassium ABG Chloride ABG Glucose Oxyhemoglobin Carboxyhemoglobin Sodium Potassium Chloride Carbon Dioxide BUN Creatinine Glucose POC Glucose 178 H Hemoglobin A1c Calcium Phosphorus Magnesium AST ALT Alkaline Phosphatase Lactate Dehydrogenase 509 H C-Reactive Protein Total Protein Albumin Triglycerides Arterial Blood Glucose Arterial Blood Ionized Calcium Urine Creatinine Random Vancomycin Coronavirus (PCR) Crossmatch 03/31/21 03/31/21 03/31/21 12:30 17:40 21:00 WBC RBC Hgb Hct MCH MCHC RDW Plt Count Lymph % (Auto) [place] # (Auto) Eos # (Auto) Seg Neutrophils % Lymphocytes % (Manual) Eosinophils % (Manual) Basophils % (Manual) Nucleated RBC % Seg Neutrophils # Seg Neutrophils # Man Lymphocytes # (Manual) Monocytes # (Manual) Eosinophils # (Manual) Basophils # (Manual) Percent Retic PT INR Fibrinogen D-Dimer ABG pH 7.235 L 7.216 L POC ABG pCO2 POC ABG pO2 ABG pO2 76.8 L 113.9 H ABG HCO3 ABG O2 Saturation 93.2 L ABG Base Excess -5.3 L -7.3 L ABG Hemoglobin 6.3 L 8.0 L ABG Oxyhemoglobin ABG Sodium ABG Potassium ABG Chloride ABG Glucose Oxyhemoglobin 91.1 L Carboxyhemoglobin Sodium Potassium Chloride Carbon Dioxide BUN Creatinine Glucose POC Glucose 245 H Hemoglobin A1c Calcium Phosphorus Magnesium AST ALT Alkaline Phosphatase Lactate Dehydrogenase C-Reactive Protein Total Protein Albumin Triglycerides Arterial Blood Glucose Arterial Blood Ionized Calcium Urine Creatinine Random Vancomycin Coronavirus (PCR) Crossmatch 04/01/21 04/01/21 04/01/21 00:11 05:09 08:25 WBC RBC Hgb Hct MCH MCHC RDW Plt Count Lymph % (Auto) [place] # (Auto) Eos # (Auto) Seg Neutrophils % Lymphocytes % (Manual) Eosinophils % (Manual) Basophils % (Manual) Nucleated RBC % Seg Neutrophils # Seg Neutrophils # Man Lymphocytes # (Manual) Monocytes # (Manual) Eosinophils # (Manual) Basophils # (Manual) Percent Retic PT INR Fibrinogen D-Dimer ABG pH 7.225 L POC ABG pCO2 POC ABG pO2 ABG pO2 76.4 L ABG HCO3 ABG O2 Saturation 92.2 L ABG Base Excess -7.6 L ABG Hemoglobin 7.3 L ABG Oxyhemoglobin ABG Sodium ABG Potassium ABG Chloride ABG Glucose Oxyhemoglobin 90.2 L Carboxyhemoglobin Sodium Potassium Chloride Carbon Dioxide BUN Creatinine Glucose POC Glucose 209 H 173 H Hemoglobin A1c Calcium Phosphorus Magnesium AST ALT Alkaline Phosphatase Lactate Dehydrogenase C-Reactive Protein Total Protein Albumin Triglycerides Arterial Blood Glucose Arterial Blood Ionized Calcium Urine Creatinine Random Vancomycin Coronavirus (PCR) Crossmatch 04/01/21 04/01/21 04/01/21 12:01 12:05 17:55 WBC RBC Hgb Hct MCH MCHC RDW Plt Count Lymph % (Auto) [place] # (Auto) Eos # (Auto) Seg Neutrophils % Lymphocytes % (Manual) Eosinophils % (Manual) Basophils % (Manual) Nucleated RBC % Seg Neutrophils # Seg Neutrophils # Man Lymphocytes # (Manual) Monocytes # (Manual) Eosinophils # (Manual) Basophils # (Manual) Percent Retic PT INR Fibrinogen D-Dimer ABG pH POC ABG pCO2 POC ABG pO2 ABG pO2 ABG HCO3 ABG O2 Saturation ABG Base Excess ABG Hemoglobin ABG Oxyhemoglobin ABG Sodium ABG Potassium ABG Chloride ABG Glucose Oxyhemoglobin Carboxyhemoglobin Sodium Potassium 5.9 H Chloride Carbon Dioxide BUN Creatinine Glucose POC Glucose 202 H 217 H Hemoglobin A1c Calcium Phosphorus Magnesium AST ALT Alkaline Phosphatase Lactate Dehydrogenase C-Reactive Protein Total Protein Albumin Triglycerides Arterial Blood Glucose Arterial Blood Ionized Calcium Urine Creatinine Random Vancomycin Coronavirus (PCR) Crossmatch 04/01/21 04/01/21 04/01/21 Unknown Unknown 23:59 WBC 27.2 H RBC 3.08 L Hgb 8.4 L Hct 26.0 L MCH 27 L MCHC RDW 18.5 H Plt Count Lymph % (Auto) [place] # (Auto) Eos # (Auto) Seg Neutrophils % Lymphocytes % (Manual) Eosinophils % (Manual) Basophils % (Manual) Nucleated RBC % Seg Neutrophils # Seg Neutrophils # Man Lymphocytes # (Manual) Monocytes # (Manual) Eosinophils # (Manual) Basophils # (Manual) Percent Retic PT INR Fibrinogen D-Dimer ABG pH POC ABG pCO2 POC ABG pO2 ABG pO2 ABG HCO3 ABG O2 Saturation ABG Base Excess ABG Hemoglobin ABG Oxyhemoglobin ABG Sodium ABG Potassium ABG Chloride ABG Glucose Oxyhemoglobin Carboxyhemoglobin Sodium 132 L Potassium 6.6 H* D Chloride 91.3 L Carbon Dioxide 17 L BUN 104 H Creatinine 9.3 H Glucose 199 H POC Glucose 172 H Hemoglobin A1c Calcium 8.3 L Phosphorus Magnesium AST 236 H ALT 93 H Alkaline Phosphatase 191 H Lactate Dehydrogenase C-Reactive Protein Total Protein Albumin 2.4 L Triglycerides Arterial Blood Glucose Arterial Blood Ionized Calcium Urine Creatinine Random Vancomycin Coronavirus (PCR) Crossmatch 04/02/21 04/02/21 04/02/21 04:00 04:00 05:00 WBC 31.0 H RBC 2.93 L Hgb 8.0 L Hct 24.7 L MCH 27 L MCHC RDW 19.2 H Plt Count 131 L Lymph % (Auto) [place] # (Auto) Eos # (Auto) Seg Neutrophils % Lymphocytes % (Manual) Eosinophils % (Manual) Basophils % (Manual) Nucleated RBC % Seg Neutrophils # Seg Neutrophils # Man Lymphocytes # (Manual) Monocytes # (Manual) Eosinophils # (Manual) Basophils # (Manual) Percent Retic PT 16.0 H INR 1.16 H Fibrinogen D-Dimer ABG pH POC ABG pCO2 POC ABG pO2 ABG pO2 ABG HCO3 ABG O2 Saturation ABG Base Excess ABG Hemoglobin ABG Oxyhemoglobin ABG Sodium ABG Potassium ABG Chloride ABG Glucose Oxyhemoglobin Carboxyhemoglobin Sodium 135 L Potassium 5.3 H Chloride 96.1 L Carbon Dioxide 18 L BUN 80 H Creatinine 6.8 H Glucose 174 H POC Glucose Hemoglobin A1c Calcium 7.7 L Phosphorus Magnesium AST 106 H ALT 60 H Alkaline Phosphatase Lactate Dehydrogenase C-Reactive Protein Total Protein 5.9 L Albumin 3.5 L Triglycerides 579 H Arterial Blood Glucose Arterial Blood Ionized Calcium Urine Creatinine Random Vancomycin Coronavirus (PCR) Crossmatch 04/02/21 04/02/21 04/02/21 05:09 08:55 11:06 WBC RBC Hgb Hct MCH MCHC RDW Plt Count Lymph % (Auto) [place] # (Auto) Eos # (Auto) Seg Neutrophils % Lymphocytes % (Manual) Eosinophils % (Manual) Basophils % (Manual) Nucleated RBC % Seg Neutrophils # Seg Neutrophils # Man Lymphocytes # (Manual) Monocytes # (Manual) Eosinophils # (Manual) Basophils # (Manual) Percent Retic PT INR Fibrinogen D-Dimer ABG pH 7.188 L POC ABG pCO2 58.3 H POC ABG pO2 132.8 H ABG pO2 ABG HCO3 ABG O2 Saturation ABG Base Excess ABG Hemoglobin 8.4 L ABG Oxyhemoglobin ABG Sodium ABG Potassium 5.0 H ABG Chloride 97.0 L ABG Glucose 156 H Oxyhemoglobin Carboxyhemoglobin 0.4 L Sodium Potassium Chloride Carbon Dioxide BUN Creatinine Glucose POC Glucose 148 H 167 H Hemoglobin A1c Calcium Phosphorus Magnesium AST ALT Alkaline Phosphatase Lactate Dehydrogenase C-Reactive Protein Total Protein Albumin Triglycerides Arterial Blood Glucose 156 H Arterial Blood Ionized Calcium 4.2 L Urine Creatinine Random Vancomycin Coronavirus (PCR) Crossmatch 04/02/21 04/02/21 04/03/21 17:57 20:40 00:28 WBC RBC Hgb Hct MCH MCHC RDW Plt Count Lymph % (Auto) [place] # (Auto) Eos # (Auto) Seg Neutrophils % Lymphocytes % (Manual) Eosinophils % (Manual) Basophils % (Manual) Nucleated RBC % Seg Neutrophils # Seg Neutrophils # Man Lymphocytes # (Manual) Monocytes # (Manual) Eosinophils # (Manual) Basophils # (Manual) Percent Retic PT INR Fibrinogen D-Dimer ABG pH POC ABG pCO2 POC ABG pO2 ABG pO2 111.9 H ABG HCO3 18.9 L ABG O2 Saturation ABG Base Excess -9.9 L ABG Hemoglobin ABG Oxyhemoglobin ABG Sodium ABG Potassium ABG Chloride ABG Glucose Oxyhemoglobin Carboxyhemoglobin Sodium Potassium Chloride Carbon Dioxide BUN Creatinine Glucose POC Glucose 205 H 217 H Hemoglobin A1c Calcium Phosphorus Magnesium AST ALT Alkaline Phosphatase Lactate Dehydrogenase C-Reactive Protein Total Protein Albumin Triglycerides Arterial Blood Glucose Arterial Blood Ionized Calcium Urine Creatinine Random Vancomycin Coronavirus (PCR) Crossmatch 04/03/21 04/03/21 04/03/21 03:39 04:30 04:30 WBC 31.1 H RBC 2.78 L Hgb 8.0 L Hct 24.0 L MCH MCHC RDW 19.0 H Plt Count Lymph % (Auto) [place] # (Auto) Eos # (Auto) Seg Neutrophils % Lymphocytes % (Manual) Eosinophils % (Manual) 27.0 H Basophils % (Manual) 2.0 H Nucleated RBC % Seg Neutrophils # Seg Neutrophils # Man 13.7 H Lymphocytes # (Manual) 8.4 H Monocytes # (Manual) Eosinophils # (Manual) 8.4 H Basophils # (Manual) 0.6 H Percent Retic PT INR Fibrinogen D-Dimer ABG pH POC ABG pCO2 POC ABG pO2 ABG pO2 ABG HCO3 ABG O2 Saturation ABG Base Excess ABG Hemoglobin ABG Oxyhemoglobin ABG Sodium ABG Potassium ABG Chloride ABG Glucose Oxyhemoglobin Carboxyhemoglobin Sodium 132 L Potassium 5.8 H Chloride 94.5 L Carbon Dioxide 16 L BUN 97 H Creatinine 7.7 H Glucose 230 H POC Glucose 201 H Hemoglobin A1c Calcium 7.6 L Phosphorus Magnesium AST 47 H ALT Alkaline Phosphatase 146 H Lactate Dehydrogenase C-Reactive Protein Total Protein 5.2 L Albumin 3.4 L Triglycerides Arterial Blood Glucose Arterial Blood Ionized Calcium Urine Creatinine Random Vancomycin Coronavirus (PCR) Crossmatch 04/03/21 04/03/21 04/03/21 04:30 08:31 11:29 WBC RBC Hgb Hct MCH MCHC RDW Plt Count Lymph % (Auto) [place] # (Auto) Eos # (Auto) Seg Neutrophils % Lymphocytes % (Manual) Eosinophils % (Manual) Basophils % (Manual) Nucleated RBC % Seg Neutrophils # Seg Neutrophils # Man Lymphocytes # (Manual) Monocytes # (Manual) Eosinophils # (Manual) Basophils # (Manual) Percent Retic PT INR Fibrinogen D-Dimer ABG pH 7.195 L* POC ABG pCO2 POC ABG pO2 ABG pO2 102.6 H ABG HCO3 ABG O2 Saturation ABG Base Excess -7.2 L ABG Hemoglobin 8.0 L ABG Oxyhemoglobin ABG Sodium ABG Potassium ABG Chloride ABG Glucose Oxyhemoglobin 94.7 L Carboxyhemoglobin Sodium Potassium Chloride Carbon Dioxide BUN Creatinine Glucose POC Glucose 230 H Hemoglobin A1c Calcium Phosphorus 10.30 H Magnesium AST ALT Alkaline Phosphatase Lactate Dehydrogenase C-Reactive Protein Total Protein Albumin Triglycerides Arterial Blood Glucose Arterial Blood Ionized Calcium Urine Creatinine Random Vancomycin Coronavirus (PCR) Crossmatch 04/03/21 04/03/21 04/04/21 16:53 20:45 05:00 WBC 28.8 H RBC 2.64 L Hgb 8.7 L Hct 22.2 L MCH 33 H MCHC 39 H* RDW 18.6 H Plt Count Lymph % (Auto) [place] # (Auto) Eos # (Auto) Seg Neutrophils % Lymphocytes % (Manual) Eosinophils % (Manual) Basophils % (Manual) Nucleated RBC % Seg Neutrophils # Seg Neutrophils # Man Lymphocytes # (Manual) Monocytes # (Manual) Eosinophils # (Manual) Basophils # (Manual) Percent Retic PT INR Fibrinogen D-Dimer ABG pH POC ABG pCO2 POC ABG pO2 ABG pO2 ABG HCO3 ABG O2 Saturation ABG Base Excess ABG Hemoglobin ABG Oxyhemoglobin ABG Sodium ABG Potassium ABG Chloride ABG Glucose Oxyhemoglobin 94.8 L Carboxyhemoglobin Sodium Potassium Chloride Carbon Dioxide BUN Creatinine Glucose POC Glucose 227 H Hemoglobin A1c Calcium Phosphorus Magnesium AST ALT Alkaline Phosphatase Lactate Dehydrogenase C-Reactive Protein Total Protein Albumin Triglycerides Arterial Blood Glucose Arterial Blood Ionized Calcium Urine Creatinine Random Vancomycin Coronavirus (PCR) Crossmatch 04/04/21 04/04/21 04/04/21 05:29 07:55 09:20 WBC RBC Hgb Hct MCH MCHC RDW Plt Count Lymph % (Auto) [place] # (Auto) Eos # (Auto) Seg Neutrophils % Lymphocytes % (Manual) Eosinophils % (Manual) Basophils % (Manual) Nucleated RBC % Seg Neutrophils # Seg Neutrophils # Man Lymphocytes # (Manual) Monocytes # (Manual) Eosinophils # (Manual) Basophils # (Manual) Percent Retic PT INR Fibrinogen D-Dimer ABG pH POC ABG pCO2 POC ABG pO2 ABG pO2 ABG HCO3 ABG O2 Saturation ABG Base Excess ABG Hemoglobin ABG Oxyhemoglobin ABG Sodium ABG Potassium ABG Chloride ABG Glucose Oxyhemoglobin Carboxyhemoglobin Sodium 133 L Potassium Chloride 91.0 L Carbon Dioxide 20 L BUN 75 H Creatinine 4.7 H Glucose 184 H POC Glucose 133 H Hemoglobin A1c Calcium 7.3 L Phosphorus Magnesium AST < 5 L ALT < 5 L Alkaline Phosphatase 200 H Lactate Dehydrogenase C-Reactive Protein Total Protein 5.6 L Albumin 2.9 L Triglycerides Arterial Blood Glucose Arterial Blood Ionized Calcium Urine Creatinine Random Vancomycin Coronavirus (PCR) Crossmatch See Detail 04/04/21 04/04/21 04/04/21 12:01 14:06 17:05 WBC RBC Hgb Hct MCH MCHC RDW Plt Count Lymph % (Auto) [place] # (Auto) Eos # (Auto) Seg Neutrophils % Lymphocytes % (Manual) Eosinophils % (Manual) Basophils % (Manual) Nucleated RBC % Seg Neutrophils # Seg Neutrophils # Man Lymphocytes # (Manual) Monocytes # (Manual) Eosinophils # (Manual) Basophils # (Manual) Percent Retic PT INR Fibrinogen D-Dimer ABG pH 7.162 L* POC ABG pCO2 POC ABG pO2 ABG pO2 91.3 H ABG HCO3 ABG O2 Saturation 94.8 L ABG Base Excess -4.0 L ABG Hemoglobin 7.6 L ABG Oxyhemoglobin ABG Sodium ABG Potassium ABG Chloride ABG Glucose Oxyhemoglobin 92.4 L Carboxyhemoglobin Sodium Potassium Chloride Carbon Dioxide BUN Creatinine Glucose POC Glucose 199 H 166 H Hemoglobin A1c Calcium Phosphorus Magnesium AST ALT Alkaline Phosphatase Lactate Dehydrogenase C-Reactive Protein Total Protein Albumin Triglycerides Arterial Blood Glucose Arterial Blood Ionized Calcium Urine Creatinine Random Vancomycin Coronavirus (PCR) Crossmatch 04/04/21 04/04/21 04/05/21 21:14 23:30 05:20 WBC RBC Hgb Hct MCH MCHC RDW Plt Count Lymph % (Auto) [place] # (Auto) Eos # (Auto) Seg Neutrophils % Lymphocytes % (Manual) Eosinophils % (Manual) Basophils % (Manual) Nucleated RBC % Seg Neutrophils # Seg Neutrophils # Man Lymphocytes # (Manual) Monocytes # (Manual) Eosinophils # (Manual) Basophils # (Manual) Percent Retic PT INR Fibrinogen D-Dimer ABG pH 7.257 L POC ABG pCO2 POC ABG pO2 ABG pO2 73.8 L ABG HCO3 ABG O2 Saturation 91.6 L ABG Base Excess -2.7 L ABG Hemoglobin 8.6 L ABG Oxyhemoglobin ABG Sodium ABG Potassium ABG Chloride ABG Glucose Oxyhemoglobin 89.1 L Carboxyhemoglobin Sodium 131 L Potassium Chloride 91.2 L Carbon Dioxide 17 L BUN 85 H Creatinine 5.1 H Glucose 183 H POC Glucose 158 H Hemoglobin A1c Calcium 7.4 L Phosphorus Magnesium AST ALT Alkaline Phosphatase 190 H Lactate Dehydrogenase 394 H C-Reactive Protein Total Protein 5.8 L Albumin 2.7 L Triglycerides Arterial Blood Glucose Arterial Blood Ionized Calcium Urine Creatinine Random Vancomycin Coronavirus (PCR) Crossmatch 04/05/21 04/05/21 04/05/21 05:20 05:20 05:24 WBC 30.8 H RBC 2.83 L Hgb 8.4 L Hct 24.4 L MCH MCHC 35 H RDW 18.9 H Plt Count Lymph % (Auto) [place] # (Auto) Eos # (Auto) Seg Neutrophils % Lymphocytes % (Manual) Eosinophils % (Manual) Basophils % (Manual) Nucleated RBC % Seg Neutrophils # Seg Neutrophils # Man Lymphocytes # (Manual) Monocytes # (Manual) Eosinophils # (Manual) Basophils # (Manual) Percent Retic PT INR Fibrinogen D-Dimer ABG pH POC ABG pCO2 POC ABG pO2 ABG pO2 ABG HCO3 ABG O2 Saturation ABG Base Excess ABG Hemoglobin ABG Oxyhemoglobin ABG Sodium ABG Potassium ABG Chloride ABG Glucose Oxyhemoglobin Carboxyhemoglobin Sodium Potassium Chloride Carbon Dioxide BUN Creatinine Glucose POC Glucose 162 H Hemoglobin A1c Calcium Phosphorus 9.40 H Magnesium AST ALT Alkaline Phosphatase Lactate Dehydrogenase C-Reactive Protein Total Protein Albumin Triglycerides Arterial Blood Glucose Arterial Blood Ionized Calcium Urine Creatinine Random Vancomycin Coronavirus (PCR) Crossmatch 04/05/21 04/05/21 04/05/21 11:31 12:23 21:40 WBC RBC Hgb Hct MCH MCHC RDW Plt Count Lymph % (Auto) [place] # (Auto) Eos # (Auto) Seg Neutrophils % Lymphocytes % (Manual) Eosinophils % (Manual) Basophils % (Manual) Nucleated RBC % Seg Neutrophils # Seg Neutrophils # Man Lymphocytes # (Manual) Monocytes # (Manual) Eosinophils # (Manual) Basophils # (Manual) Percent Retic PT INR Fibrinogen D-Dimer ABG pH 7.325 L POC ABG pCO2 POC ABG pO2 ABG pO2 65.6 L ABG HCO3 ABG O2 Saturation 91.2 L ABG Base Excess ABG Hemoglobin 6.7 L ABG Oxyhemoglobin ABG Sodium ABG Potassium ABG Chloride ABG Glucose Oxyhemoglobin 89.0 L Carboxyhemoglobin Sodium Potassium Chloride Carbon Dioxide BUN Creatinine Glucose POC Glucose 196 H 190 H Hemoglobin A1c Calcium Phosphorus Magnesium AST ALT Alkaline Phosphatase Lactate Dehydrogenase C-Reactive Protein Total Protein Albumin Triglycerides Arterial Blood Glucose Arterial Blood Ionized Calcium Urine Creatinine Random Vancomycin Coronavirus (PCR) Crossmatch 04/05/21 04/06/21 04/06/21 23:53 05:35 06:00 WBC RBC Hgb Hct MCH MCHC RDW Plt Count Lymph % (Auto) [place] # (Auto) Eos # (Auto) Seg Neutrophils % Lymphocytes % (Manual) Eosinophils % (Manual) Basophils % (Manual) Nucleated RBC % Seg Neutrophils # Seg Neutrophils # Man Lymphocytes # (Manual) Monocytes # (Manual) Eosinophils # (Manual) Basophils # (Manual) Percent Retic PT INR Fibrinogen D-Dimer ABG pH POC ABG pCO2 POC ABG pO2 ABG pO2 ABG HCO3 ABG O2 Saturation ABG Base Excess ABG Hemoglobin ABG Oxyhemoglobin ABG Sodium ABG Potassium ABG Chloride ABG Glucose Oxyhemoglobin Carboxyhemoglobin Sodium 132 L Potassium Chloride 90.7 L Carbon Dioxide 21 L BUN 74 H Creatinine 4.3 H Glucose 156 H POC Glucose 192 H 139 H Hemoglobin A1c Calcium 7.9 L Phosphorus 6.90 H D Magnesium AST < 5 L ALT < 5 L Alkaline Phosphatase 185 H Lactate Dehydrogenase C-Reactive Protein Total Protein 5.7 L Albumin 2.5 L Triglycerides Arterial Blood Glucose Arterial Blood Ionized Calcium Urine Creatinine Random Vancomycin Coronavirus (PCR) Crossmatch 04/06/21 04/06/21 04/06/21 06:00 11:27 18:01 WBC 26.7 H RBC 2.39 L Hgb 6.9 L Hct 20.1 L MCH MCHC RDW 18.7 H Plt Count Lymph % (Auto) [place] # (Auto) Eos # (Auto) Seg Neutrophils % Lymphocytes % (Manual) Eosinophils % (Manual) Basophils % (Manual) Nucleated RBC % Seg Neutrophils # Seg Neutrophils # Man Lymphocytes # (Manual) Monocytes # (Manual) Eosinophils # (Manual) Basophils # (Manual) Percent Retic PT INR Fibrinogen D-Dimer ABG pH POC ABG pCO2 POC ABG pO2 ABG pO2 ABG HCO3 ABG O2 Saturation ABG Base Excess ABG Hemoglobin ABG Oxyhemoglobin ABG Sodium ABG Potassium ABG Chloride ABG Glucose Oxyhemoglobin Carboxyhemoglobin Sodium Potassium Chloride Carbon Dioxide BUN Creatinine Glucose POC Glucose 166 H 159 H Hemoglobin A1c Calcium Phosphorus Magnesium AST ALT Alkaline Phosphatase Lactate Dehydrogenase C-Reactive Protein Total Protein Albumin Triglycerides Arterial Blood Glucose Arterial Blood Ionized Calcium Urine Creatinine Random Vancomycin Coronavirus (PCR) Crossmatch 04/06/21 04/06/21 04/07/21 20:50 23:43 03:50 WBC 26.7 H RBC 2.66 L Hgb 7.6 L Hct 23.2 L MCH MCHC RDW 18.5 H Plt Count Lymph % (Auto) [place] # (Auto) Eos # (Auto) Seg Neutrophils % Lymphocytes % (Manual) 10.0 L Eosinophils % (Manual) 19.0 H Basophils % (Manual) Nucleated RBC % 2.0 H Seg Neutrophils # Seg Neutrophils # Man 17.9 H Lymphocytes # (Manual) Monocytes # (Manual) 1.1 H Eosinophils # (Manual) 5.1 H Basophils # (Manual) Percent Retic PT INR Fibrinogen D-Dimer ABG pH 7.303 L POC ABG pCO2 POC ABG pO2 67.9 L ABG pO2 ABG HCO3 ABG O2 Saturation ABG Base Excess ABG Hemoglobin 7.6 L ABG Oxyhemoglobin 90.2 L ABG Sodium 128.6 L ABG Potassium ABG Chloride 97.0 L ABG Glucose 154 H Oxyhemoglobin Carboxyhemoglobin Sodium Potassium Chloride Carbon Dioxide BUN Creatinine Glucose POC Glucose 137 H Hemoglobin A1c Calcium Phosphorus Magnesium AST ALT Alkaline Phosphatase Lactate Dehydrogenase C-Reactive Protein Total Protein Albumin Triglycerides Arterial Blood Glucose 154 H Arterial Blood Ionized Calcium Urine Creatinine Random Vancomycin Coronavirus (PCR) Crossmatch 04/07/21 04/07/21 04/07/21 03:50 03:50 04:00 WBC RBC Hgb Hct MCH MCHC RDW Plt Count Lymph % (Auto) [place] # (Auto) Eos # (Auto) Seg Neutrophils % Lymphocytes % (Manual) Eosinophils % (Manual) Basophils % (Manual) Nucleated RBC % Seg Neutrophils # Seg Neutrophils # Man Lymphocytes # (Manual) Monocytes # (Manual) Eosinophils # (Manual) Basophils # (Manual) Percent Retic PT INR Fibrinogen D-Dimer 2178 H ABG pH POC ABG pCO2 POC ABG pO2 ABG pO2 ABG HCO3 ABG O2 Saturation ABG Base Excess ABG Hemoglobin ABG Oxyhemoglobin ABG Sodium ABG Potassium ABG Chloride ABG Glucose Oxyhemoglobin Carboxyhemoglobin Sodium 130 L 129 L Potassium 5.1 H Chloride 91.1 L 89.6 L Carbon Dioxide 19 L 18 L BUN 92 H 94 H Creatinine 4.2 H 4.2 H Glucose 213 H 213 H POC Glucose Hemoglobin A1c Calcium 7.8 L 7.9 L Phosphorus Magnesium AST ALT Alkaline Phosphatase 167 H Lactate Dehydrogenase C-Reactive Protein Total Protein Albumin 2.8 L Triglycerides Arterial Blood Glucose Arterial Blood Ionized Calcium Urine Creatinine Random Vancomycin Coronavirus (PCR) Crossmatch 04/07/21 11:10 WBC RBC Hgb Hct MCH MCHC RDW Plt Count Lymph % (Auto) [place] # (Auto) Eos # (Auto) Seg Neutrophils % Lymphocytes % (Manual) Eosinophils % (Manual) Basophils % (Manual) Nucleated RBC % Seg Neutrophils # Seg Neutrophils # Man Lymphocytes # (Manual) Monocytes # (Manual) Eosinophils # (Manual) Basophils # (Manual) Percent Retic PT INR Fibrinogen D-Dimer ABG pH POC ABG pCO2 POC ABG pO2 ABG pO2 ABG HCO3 ABG O2 Saturation ABG Base Excess ABG Hemoglobin ABG Oxyhemoglobin ABG Sodium ABG Potassium ABG Chloride ABG Glucose Oxyhemoglobin Carboxyhemoglobin Sodium Potassium Chloride Carbon Dioxide BUN Creatinine Glucose POC Glucose 136 H Hemoglobin A1c Calcium Phosphorus Magnesium AST ALT Alkaline Phosphatase Lactate Dehydrogenase C-Reactive Protein Total Protein Albumin Triglycerides Arterial Blood Glucose Arterial Blood Ionized Calcium Urine Creatinine Random Vancomycin Coronavirus (PCR) Crossmatch Allied health notes reviewed: nursing
--- NOTE | 2021-04-07 12:52 | Progress Note ---
<ANCELMO GONZALEZ - Last Filed: 04/07/21 16:19> Assessment and Plan Assessment and plan: This is a 31-year-old female with asthma, morbid obesity and Crohn's disease admitted for Acute hypxemic respiratory failure 2/2 COVID PNA requiring ventilatory support and acute renal failure now on HD. Hospital Course to Date: 03/14/21- Patient is s/p intubation from this morning, sedated on propofol and fentanyl RASS -3 to -4. ETT above the clavicles advanced by 2cc. Continue nebs and IV steroids per [facility]. COVID swab pending. Hyperkalemia improved, X1 dose of kayaxalate ordered. Low BP and low urine output this am, fluid bolus challenge, 500cc of NS bolus given. Continue to monitor electrolytes and renal function, repeat BMP this afternoon. 03/15: Patient's renal function noted to be significantly worse today, patient was hyperkalemic and this was medically treated. Patient initiated on hemodi alysis today. infectious disease was consulted today. 03/16: No acute events reported overnight, patient received hemodialysis yesterday. Patient is currently on propofol and fentanyl. 03/17: Patient received hemodialysis today, patient is slightly acidotic on ABG however [facility] is allowing for permissive hypercapnia, tracheal aspirate with Staph aureus and ID is aware. 03/18: Patient is having high residuals today and Reglan was started, patient will receive HD daily per nephrology, correct her change in FiO2 as tolerated. 03/19: HD per nephrology today, antibiotics changed to cefazolin. Patient did not tolerate tube feedings as she had high residuals this morning and they were turned off. Not restarted yet. Updated family at bedside today 03/20: HD today, ddimer noted to be >1000, Tolerating trickle TF. Stat BLE dopplar US 03/21: Patient is not tolerating TF, CXR shows worsening infiltrates, [facility] made changes to vent, TF on hold and started on IVF. 03/22/21- Patient remains intubated and on sedation. Persistent vomiting, TF held overnight, no documented BM, on reglan BR added, Shaun citarte & supp. HD today. Plan to restart TF at 10ml/hr, will reevaluate in the am. Persistent thro mbocytopenia, Hep on hold, HIT panel ordered, PO eliquis initiated. 03/23/21- Patient remains on the vent and sedated on propofol and fentanyl RASS - 2 to -3. Possible SAT today as tolerated. Patient tolerated trickle feeds overnight, plan to advance TF by 10cc Q8 to 12hrs. Continue current BR and co ntinue reglan for now. Slightr worsening in acidosis from this am, d/w [facility] vent setting adjusted, will repeat ABG at 9pm. 03/24/21- Patient is on the vent and sedated, on fentanyl and propfol. Bilateral subconjunctival hemorrhage with periorbital edema noted this am, pupils are round and reactive, will Cipro/Dex [id number]. Worsening of kidney function from today's labs, plan for HD per Nephro. 03/25/21- Patient remains intubated and on sedatin, RASS 0 to -1, no longer on pressors. Sudden drop in H&H this am, bilateral subconjunctival hemorrhage with no sig change, no signs of any active bleeding. Patient appears neurologically intact, following commands, pupils are round and reactive with + gag and cough, moved all extremities. D/w [facility] patient is too unstable for CT at this time. Eliquis D/Devaughn, 1unit of PRBC ordered. Will continue to trend CBC. Plan for another section of HD today 03/26/21- Patient remains on the vent and sedated. VENICE reported from overnight. Plan for HD again today. H&H back up and stable, no AC at this time, SCDs for VTE phro. D/w [facility] patient is still too unstable for CT scan, will continue neuro exam and will continue to monitor H&H. 03/27/21- VENICE overnight. remains on the vent and sedated. Red localized rashes noted in patient upper chest and face, will r/o allergic reaction,CBC with auto diff and urine eosinophils ordered. Plan for HD today per Nephro. 03/28/21- Patient remains on the vent and sedated. Persistent fevers overnight unrelieved with antipyretic, currently on a cooling blanket. Back on pressors for hypotension, patient already on IV abx, last blood cultureX2 and sputum culture from 03/23 were negative. Continue IV abx, will reculture patient, orders placed for B.culture and sputum culture. ID is also on consult. will continue F/u on culture and continue to monitor BMP and CBC. 03/29: Patient restarted on prednisone given splotchy rash, will resume apixaban for VTE prophylaxis and repeat ABG at 9 PM. Remains with leukocytosis, elevated BUN/creatinine, elevated triglycerides and on Levophed 03/30: HD today, rash is still present and started on IV steroids. plt is low today but will continue to monitor. [facility] made changes to vent-> decrease in MV. ABG in the pm and possible punch biopsy tomorrow if rash is not improved. p ropofol changed to versed 03/31: Heme/oncology consulted yesterday, will start patient on plasmapheresis for possible HUS. Cefepime discontinued today as today was the last day. Patient started on pulse dose steroids of 1 g/day for 3 days. Some improvement noted to eyes this morning. Patient was febrile overnight and received ibuprofen overnight. Acetaminophen allergy confirmed with family, allergy is only to oxycodone and hydrocodone but not the acetaminophen component. Confirmed by family patient has no reaction to [id number] Tylenol. Remains on vasopressor support and sedated with fentanyl, propofol and Versed. Vent mode changed to pressure control ventilation. Patient started on Arctic sun for fever control. Mother updated over telephone this a.m. and this p.m. family meeting held with her mother, sister x 2 and brother and with 2 other unknown people over the phone (1 female and one male) and nurse. Family states that patient is likely to an antibiotic possibly penicillins. This information was not available to us before. 04/01: Hyperkalemia medically treated, patient scheduled for dialysis today, plasmapheresis for possible HUS scheduled for today, steroids should be ending tomorrow, generalized rash/discoloration minimally better. Patient still remains on Arctic sun for temperature regulation. Vent changes per [facility]. 04/02: remains on artic sun but water temp noted to be in the 30s today. Completed plasmapheresis x2 and is now on steroid taper however minimal change noted to rash/discoloration. Eyes are more clear today but remain red under lids (tops of eye). Acidosis noted on ABG. Hyperkalemia and hyperphosphatemeia persists. Sedation increased for RR in to the 40s-50s and vasopressors being titrated as tolerated. 04/04: Patient receiving 1 unit PRBC per heme's recommendation, increased respiratory effort noted, patient is acidotic on ABG and given 1 amp of bicarb in addition to bicarb drip, sedation increased for vent synchrony. No HD per nephrology given tachycardia. Seroquel started. 04/05: Patient on the vent and sedated, still on 3 pressors. Patient to wean off propofol gtt, seroquel increased. Patient afebrile overnight, however artic sun is still in place. Will attempt to take off the cooling blanket today, will continue to assess for fever curve. Continue current IV Abx therapy per ID. Plan for HD today per Nephro. Patient's family at the bedside, thoroughly discussed patient's condition and overall poor prognosis. All questions and concerns were addressed. Team will continue to f/u with family with further updates. 04/06: Patient remains sedated and on the vent, still on fent and versed, propofol was weaned off. Low Hbg this am, 2 units of PRBCs ordered. Patient febrile overnight, patient completed IV abx course, leukocytosis downtrending. c/f for possible drug fever vs DVT, BLE doppler reordered to R/O DVT. Patient remains on high dose pressors, wean pressors as tolerated for MAP of 65. 04/07: Patient appears to be in distress thi am, tachypneic and tachycardic, with increased work of breathing. Propofol stopped this am. IV push versed given and versed gtt was increased to max. D/w [facility] plan to possibly restart propofol since patient is not tolerating sedation wean. Patient remains febrile throdenisha hogerda, pancultured yesterday by ID and IV abx was restarted. Overall poor prognosis at this time. Patient's mother and siblings at the bedside were update on patient's status. Plan for possible family meeting with the care team Monday. Assessment and Plan #Neuro: Sedated - Intubated and sedated on fentanyl and versed, RASS -5 - Seroquel increased - Plan to wean off propofol, RASS goal of 0 to -3 - PRN EKG for QTC monitoring - Daily SAT and SBT per [facility] - Avoid benzodiazepine to reduce the possibility of delirium - Prn analgesia for CPOT greater than 3 - Maintenance of sleep-wake cycle #CV: Tachycardia, s/p hypertension now with hypotension - Remains ST on the monitor - Remains on high dose pressors - Vasopressor support with levophed, vasopressin - Continue blood pressure monitor per protocol - Maintain MAP above 65 - Continue AC- Eliquis and SCDs for VTE proph #Respiratory: Acute hypoxic respiratory failure #asthma exacerbation #COVID-19 pneumonia/ARDS, #RUL PNA #Bronchospasm (resolved) - ETT on 03/14 - Vent setting: AC/PC- 50%,10,30,max PS60 - AM ABG noted - CCM consulted, appreciate recommendations - Continue IV Steroids and Nebs - Plan to taper steroids - VAP bundle addressed - Aspiration precaution HOB above 30 - Daily SBT and SAT trials as tolerated - Daily ABG and CXR per CCM - Continue SPO2 monitoring for SPO2 goal above 92% #GI: transaminitis #h/o [place] and Crohn's disease -Nutrition consulted, appreciate recommendations -Tube feeding: Nepro at goal -Free water 100 mL every 4 hours -Continue BR: Senokot -Continue PPI -BMS in place #: Acute kidney injury likely secondary to ATN #hyponatremia - Initial Scr was wnl - Scr as high as 10.8, 5.1 this am - Patient is now anuric - Nephrology consulted, appreciate recommendations - HD initiated 03/15 - Plan for DH today, possible 1L out is patient tolerate it - Daily weights - Strict intake and output - Avoid nephrotoxic medications; Renally dose medications - Continue IVF for now - Monitor and replace electrolytes as needed #ID: COVID-19 pneumonia #Leukocytosis - 03/14 COVID-19 PCR (+); - 03/14 tracheal aspirate with Staph aureus; 04/10 COVID PCR (-) - B.cultures are negative - WBCs back up, probably reactive; 26.7 this am - artic sun D/C, patient febrile overnight TMAX 101.5 - Patient completed IV Abx course - Patient received X1 dose of redemsevir, was D/C due to worsen renal function - S/p X1 dose actemra - Trend COVID-19 inflammatory markers - Isolation/droplet precautions - On Vitamin C/vitamin D/zinc - Daily CBC monitor -Infectious disease consulted, appreciate recommendations #Heme: Anemia #?HUS vs drug reaction #Conjunctival hemorrhage- resolved - s/p plasmapheresis x2 (04/01-04/02) - Hbg 6.9 this am, 2units of PRBCs ordered -Trend CBC -Transfuse hemoglobin less than 7 - Continue Eliquis, restarted on 03/29 - SCDs to bilateral lower extremity while in bed - 03/23 BLE duplex US shows no DVT - BLE doppler reordered - HIT negative #Endo: Hyperglycemia - Hemoglobin A1c 6.3 - SSI Q6hrs - Avoid hypoglycemia - While critically ill target blood glucose of 140-180 The high probability of a clinically significant, sudden or life threatening deterioration of the [multiple] system(s) required my full and direct attention, intervention and personal management. The aggregate critical care time was [60] minutes. This time is in addition to time spent performing reported procedures but includes the following: [x] Data Review and interpretation [x] Patient assessment and monitoring of vital signs [x] Documentation [x] Medication orders and management Disposition Plan: ICU Total Time Spent with Patient (Minutes): 60 History Interval history: Patient is seen and examined at the bedside. Patient remains on the vent and on sedation. Tachypneia and tachycardia, with increased work of breathing this am. IV push versed given and versed gtt was increased to max Hospitalist Physical - Constitutional Vitals: Temp Pulse Resp BP Pulse Ox 99.3 F 120 H 42 H 168/85 93 04/07/21 07:42 04/07/21 08:38 04/07/21 08:38 04/07/21 08:37 04/07/21 08:37 General appearance: Present: no acute distress, well-nourished, obese, other (Intubated and sedated) - EENT Eyes: Present: PERRL - Respiratory Respiratory effort: labored Respiratory: bilateral: wheezing - Cardiovascular Rhythm: regular Heart Sounds: Present: S1 & S2 - Extremities Extremities: no ischemia, pulses intact, pulses symmetrical Extremity abnormal: edema - Peripheral Assessment Generalized Edema Type: Pitting Edema Degree: 4+ Capillary Refill: < 3 seconds Skin Temperature: Warm Peripheral Pulses: within normal limits - Abdominal General gastrointestinal: soft, non-tender, hypoactive bowel sounds - Integumentary Integumentary: Present: warm, dry, erythema - Psychiatric Psychiatric: other (Intubated and sedated) - Neurologic Neurologic: other (Intubated and sedated) - Allied Health Allied health notes reviewed: nursing Results - Labs CBC & Chem 7: 04/07/21 03:50 04/07/21 04:00 Labs: Laboratory Last Values WBC 26.7 K/mm3 (4.5-11.0) H 04/07/21 03:50 RBC 2.66 M/mm3 (3.65-5.03) L 04/07/21 03:50 Hgb 7.6 gm/dl (10.1-14.3) L 04/07/21 03:50 Hct 23.2 % (30.3-42.9) L 04/07/21 03:50 MCV 87 fl (79-97) 04/07/21 03:50 MCH 28 pg (28-32) 04/07/21 03:50 MCHC 33 % (30-34) 04/07/21 03:50 RDW 18.5 % (13.2-15.2) H 04/07/21 03:50 Plt Count 246 K/mm3 (140-440) 04/07/21 03:50 Lymph % (Auto) 10.7 % (13.4-35.0) L 03/28/21 09:37 [place] % (Auto) 5.2 % (0.0-7.3) 03/28/21 09:37 Eos % (Auto) 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3) H 04/07/21 03:50 Basophils % (Manual) 2.0 % (0.0-1.8) H 04/03/21 04:30 Nucleated RBC % 2.0 % (0.0-0.9) H 04/07/21 03:50 Seg Neutrophils # 13.0 K/mm3 (1.8-7.7) H 03/28/21 09:37 Seg Neutrophils # Man 17.9 K/mm3 (1.8-7.7) H 04/07/21 03:50 Band Neutrophils # 0.0 K/mm3 04/07/21 03:50 Lymphocytes # (Manual) 2.7 K/mm3 (1.2-5.4) 04/07/21 03:50 Abs React Lymphs (Man) 0.0 K/mm3 04/07/21 03:50 Monocytes # (Manual) 1.1 K/mm3 (0.0-0.8) H 04/07/21 03:50 Eosinophils # (Manual) 5.1 K/mm3 (0.0-0.4) H 04/07/21 03:50 Basophils # (Manual) 0.0 K/mm3 (0.0-0.1) 04/07/21 03:50 Metamyelocytes # 0.0 K/mm3 04/07/21 03:50 Myelocytes # 0.0 K/mm3 04/07/21 03:50 Promyelocytes # 0.0 K/mm3 04/07/21 03:50 Blast Cells # 0.0 K/mm3 04/07/21 03:50 WBC Morphology Not Reportable 04/07/21 03:50 Hypersegmented Neuts Not Reportable 04/07/21 03:50 Hyposegmented Neuts Not Reportable 04/07/21 03:50 Hypogranular Neuts Not Reportable 04/07/21 03:50 Smudge Cells Not Reportable 04/07/21 03:50 Toxic Granulation Not Reportable 04/07/21 03:50 Toxic Vacuolation Not Reportable 04/07/21 03:50 Dohle Bodies Not Reportable 04/07/21 03:50 Pelger-Huet Anomaly Not Reportable 04/07/21 03:50 Bridgette Rods Not Reportable 04/07/21 03:50 Platelet Estimate Consistent w auto 04/07/21 03:50 Clumped Platelets Not Reportable 04/07/21 03:50 Plt Clumps, EDTA Not Reportable 04/07/21 03:50 Large Platelets Not Reportable 04/07/21 03:50 Giant Platelets Not Reportable 04/07/21 03:50 Platelet Satelliting Not Reportable 04/07/21 03:50 Plt Morphology Comment Not Reportable 04/07/21 03:50 RBC Morphology Not Reportable 04/07/21 03:50 Dimorphic RBCs Not Reportable 04/07/21 03:50 Polychromasia Not Reportable 04/07/21 03:50 Hypochromasia Not Reportable 04/07/21 03:50 Poikilocytosis Not Reportable 04/07/21 03:50 Anisocytosis 1+ 04/07/21 03:50 Microcytosis Not Reportable 04/07/21 03:50 Macrocytosis Not Reportable 04/07/21 03:50 Spherocytes Not Reportable 04/07/21 03:50 Pappenheimer Bodies Not Reportable 04/07/21 03:50 Sickle Cells Not Reportable 04/07/21 03:50 Target Cells 1+ 04/07/21 03:50 Tear Drop Cells Not Reportable 04/07/21 03:50 Ovalocytes Not Reportable 04/07/21 03:50 Helmet Cells Not Reportable 04/07/21 03:50 Kebede-Staunton Bodies Not Reportable 04/07/21 03:50 [place] Rings Not Reportable 04/07/21 03:50 Balaji Cells Not Reportable 04/07/21 03:50 Bite Cells Not Reportable 04/07/21 03:50 Crenated Cell Not Reportable 04/07/21 03:50 Elliptocytes Not Reportable 04/07/21 03:50 Acanthocytes (Spur) Not Reportable 04/07/21 03:50 Rouleaux Not Reportable 04/07/21 03:50 Hemoglobin C Crystals Not Reportable 04/07/21 03:50 Schistocytes Not Reportable 04/07/21 03:50 Malaria parasites Not Reportable 04/07/21 03:50 Percent Retic 4.52 % (0.78-2.58) H 03/31/21 09:49 Vaibhav Bodies Not Reportable 04/07/21 03:50 Hem Pathologist Commnt No 04/07/21 03:50 PT 13.9 Sec. (12.2-14.9) 04/04/21 07:55 INR 0.96 (0.87-1.13) 04/04/21 07:55 APTT 28.9 Sec. (24.2-36.6) 04/04/21 07:55 Fibrinogen 455 mg/dl (211-480) 04/07/21 03:50 D-Dimer 2178 ng/mlDDU (0-234) H 04/07/21 03:50 Heparin Anti-Xa, Unfract TNR 03/22/21 08:20 ABG pH 7.303 (7.320-7.450) L 04/06/21 20:50 POC ABG pCO2 40.7 mmHg (32.0-48.0) 04/06/21 20:50 ABG pCO2 48.4 mm Hg 04/05/21 21:40 POC ABG pO2 67.9 mmHg (83-108) L 04/06/21 20:50 ABG pO2 65.6 mm Hg (80.0-90.0) L 04/05/21 21:40 POC ABG HCO3 19.7 04/06/21 20:50 ABG HCO3 24.7 mmol/L (20.0-26.0) 04/05/21 21:40 ABG O2 Saturation 91.6 (0-100) 04/06/21 20:50 ABG O2 Content 8.5 (0.0-44) 04/05/21 21:40 POC ABG Base Excess -6.2 04/06/21 20:50 ABG Base Excess -1.3 mmol/L (-2.0-3.0) 04/05/21 21:40 ABG Hemoglobin 7.6 (12.0-17.5) L 04/06/21 20:50 ABG Oxyhemoglobin 90.2 (94-98) L 04/06/21 20:50 ABG Carboxyhemoglobin 2.0 % (0.0-5.0) 04/05/21 21:40 ABG Methemoglobin 0.3 (0.0-1.5) 04/06/21 20:50 ABG Sodium 128.6 mmol/L (136.0-145.0) L 04/06/21 20:50 ABG Potassium 4.4 mmol/L (3.40-4.50) 04/06/21 20:50 ABG Chloride 97.0 mmol/L (98-107) L 04/06/21 20:50 ABG Glucose 154 mg/dL (65-95) H 04/06/21 20:50 ABG Lactate Cancelled 04/03/21 20:45 Oxyhemoglobin 89.0 % (95.0-99.0) L 04/05/21 21:40 Carboxyhemoglobin 1.2 (0.5-1.5) 04/06/21 20:50 FiO2 50 % 04/05/21 21:40 FiO2 % 50 04/06/21 20:50 Sodium 129 mmol/L (137-145) L 04/07/21 04:00 Potassium 5.1 mmol/L (3.6-5.0) H 04/07/21 04:00 Chloride 89.6 mmol/L (98-107) L 04/07/21 04:00 Carbon Dioxide 18 mmol/L (22-30) L 04/07/21 04:00 Anion Gap 27 mmol/L 04/07/21 04:00 BUN 94 mg/dL (7-17) H 04/07/21 04:00 Creatinine 4.2 mg/dL (0.6-1.2) H 04/07/21 04:00 Estimated GFR 15 ml/min 04/07/21 04:00 BUN/Creatinine Ratio 22 % 04/07/21 04:00 Glucose 213 mg/dL (65-100) H 04/07/21 04:00 POC Glucose 136 mg/dL (70-105) H 04/07/21 11:10 Hemoglobin A1c 6.3 % (4-6) H 03/15/21 05:09 Lactic Acid 0.80 mmol/L (0.7-2.0) 04/07/21 03:50 Calcium 7.9 mg/dL (8.4-10.2) L 04/07/21 04:00 Phosphorus 6.90 mg/dL (2.5-4.5) H D 04/06/21 06:00 Magnesium 2.00 mg/dL (1.7-2.3) 04/06/21 06:00 Ferritin 151.6 ng/mL (10.0-200.0) 03/18/21 04:30 Total Bilirubin 0.80 mg/dL (0.1-1.2) 04/07/21 04:00 Bilirubin Cancelled 04/03/21 20:45 AST 38 units/L (5-40) 04/07/21 04:00 ALT 38 units/L (7-56) 04/07/21 04:00 Alkaline Phosphatase 167 units/L (35-129) H 04/07/21 04:00 Lactate Dehydrogenase 394 units/L (91-180) H 04/05/21 05:20 C-Reactive Protein 21.50 mg/dL (0.00-1.30) H 03/30/21 04:00 Total Protein 6.6 g/dL (6.3-8.2) 04/07/21 04:00 Albumin 2.8 g/dL (3.9-5) L 04/07/21 04:00 Albumin/Globulin Ratio 0.7 % 04/07/21 04:00 Triglycerides 579 mg/dL (2-149) H 04/02/21 05:00 Serotonin Release Assay TNR 03/22/21 08:20 Procalcitonin < 0.05 ng/mL (<0.15) 03/13/21 15:40 HCG, Qual Negative (Negative) 03/13/21 13:26 Arterial Blood Glucose 154 mg/dL (65-95) H 04/06/21 20:50 Arterial Blood Ionized Calcium Cancelled 04/03/21 20:45 Urine Creatinine 40.1 mg/dL (0.1-20.0) H 03/14/21 17:50 Urine Sodium 124 mmol/L 03/14/21 17:50 Random Vancomycin 11.2 ug/mL (0-40.0) 03/20/21 04:23 Heparin-induced Plt Ab Negative (Negative) 03/22/21 08:20 UF Heparin High Dose TNR 03/22/21 08:20 JUAN UFH Low Dose 0.1 TNR 03/22/21 08:20 JUAN UFH Low Dose 0.5 TNR 03/22/21 08:20 Coronavirus (PCR) Negative (Negative) 04/04/21 09:00 Hepatitis A IgM Ab Non-reactive (NonReactive) 03/15/21 05:09 Hep Bs Antigen Nonreactive (Negative) 03/15/21 05:09 Hep B Core IgM Ab Non-reactive (NonReactive) 03/15/21 05:09 Hepatitis C Antibody Non-reactive (NonReactive) 03/15/21 05:09 Schistocytes Smear None seen 03/31/21 12:11 Blood Type O POSITIVE 04/04/21 09:20 Antibody Screen Negative 04/04/21 09:20 Direct Antiglob Test Negative 03/31/21 23:18 NIKOLE, Poly Interpret Negative 03/31/21 23:18 Crossmatch See Detail 04/04/21 09:20 Microbiology: Microbiology 04/06/21 14:05 Tracheal Aspirate Sputum Culture - Preliminary 04/06/21 16:46 Peripheral/Venous Blood Culture - Preliminary Culture in Progress 04/06/21 17:00 Peripheral/Venous Blood Culture - Preliminary Culture in Progress Bazan/IV: Voiding Method Toilet Active Medications - Current Medications Current Medications: Generic Name Dose Route Start Last Admin Trade Name Freq PRN Reason Stop Dose Admin Acetaminophen 650 mg 03/31/21 12:41 04/07/21 10:26 Acetaminophen 325 Mg/10.15 Ml Oral Liqd Unit Dose FEEDTUBE 650 mg Q6H PRN Administration TEMP >/=100.4 Albumin Human 25 gm 04/01/21 08:19 04/01/21 16:23 Albumin Human 25% (25 Gm/100 Ml) Inj IV 25 gm KARLOS PRN Administration Hypotension Albuterol 2.5 mg 03/19/21 00:53 Albuterol 2.5 Mg/3 Ml Nebu IH Q4HRT PRN Shortness Of Breath Albuterol/Ipratropium 1 ampul 03/19/21 08:00 04/07/21 08:38 Ipratropium/Albuterol Sulfate 3 Ml Ampul.Neb IH 1 ampul Q6HRT INESSA Administration Lipase/Protease/Amylase 1 each 03/15/21 11:42 Lipase 10,500/Protease 25,000/Amylase 43,750 (Units) Dr White FEEDTUBE PRN PRN For Clogged Feeding Tube Apixaban 2.5 mg 03/29/21 13:00 04/07/21 09:23 Apixaban 2.5 Mg Tab PO 2.5 mg Q12HR INESSA Administration Protocol Ascorbic Acid 500 mg 03/14/21 22:00 04/07/21 09:23 Ascorbic Acid 500 Mg Tab PO 500 mg BID INESSA Administration Calcium Acetate 1,334 mg 04/03/21 20:00 04/07/21 09:25 Calcium Acetate 667 Mg Cap FEEDTUBE 1,334 mg TID INESSA Administration Dextrose 50 ml 03/14/21 11:02 03/15/21 11:40 Dextrose 50% In Water (25gm) 50 Ml Syringe IV 50 ml Q30MIN PRN Administration Hypoglycemia Protocol Famotidine 10 mg 03/17/21 22:00 04/07/21 09:23 Famotidine 10 Mg Tab PO 10 mg BID INESSA Administration Fentanyl 50 mcg 03/15/21 10:43 04/05/21 21:32 Fentanyl 100 Mcg/2 Ml Inj IV 50 mcg Q10MIN PRN Administration ANALGESIA Hydromorphone HCl 1 mg 04/06/21 11:32 04/06/21 17:01 Hydromorphone 1 Mg/1 Ml Inj IV 04/13/21 11:31 1 mg Q4H PRN Administration Pain , Severe (7-10) Hydrophilic Ointment 1 applic 03/14/21 17:50 Lip Therapy Vaseline TP Q2HR PRN Dry Lips Fentanyl Citrate 2,000 mcg in 100 mls @ 6.872 mls/hr 03/15/21 11:00 04/07/21 10:19 Fentanyl Drip Premix IV 4 mcg/kg/hr TITR INESSA 27.488 mls/hr Administration Protocol 1 MCG/KG/HR Sodium Chloride 500 mls @ 1 mls/hr 03/16/21 17:19 Nacl 0.9% 500 Ml IV DIRECT PRN ARTERIAL LINE FLUSH NORepinephrine/NS 8 MG-250 ML 8 mg in 250 mls @ 3.75 mls/hr 03/23/21 11:00 12:30 Norepinephrine/Ns 8 Mg-250 Ml (Double Conc) IV 16 mcg/min TITRATE INESSA 30 mls/hr Titration Protocol 2 MCG/MIN Midazolam HCl 100 mg/ Sodium 100 mls @ 1 mls/hr 03/30/21 15:00 04/07/21 11:01 Chloride IV 8 mg/hr TITR INESSA 8 mls/hr Titration Protocol 1 MG/HR Vasopressin 20 unit/ Sodium 101 mls @ 9.09 mls/hr 03/30/21 20:00 04/07/21 05:27 Chloride IV 0.03 units/min TITR INESSA 9.09 mls/hr Administration 0.03 UNITS/MIN Phenylephrine HCl 100 mg/ 100 mls @ 3 mls/hr 03/31/21 04:00 04/06/21 07:58 Sodium Chloride IV 0 mcg/min TITR INESSA 0 mls/hr Titration Protocol 50 MCG/MIN Sodium Chloride 100 mls @ 999 mls/hr 04/01/21 08:19 Nacl 0.9% IV KARLOS PRN Hypotension Sodium Bicarbonate 150 meq/ 1,150 mls @ 75 mls/hr 04/02/21 22:00 04/03/21 13:42 Dextrose IV 75 mls/hr DIRECT INESSA Administration Aztreonam 1 gm in 50 mls @ 50 mls/hr 04/06/21 15:00 04/07/21 02:30 Azactam/Ns 1 Gm/50 Ml IV 50 mls/hr Q12H INESSA Administration Protocol Levofloxacin/Dextrose 750 mg in 150 mls @ 100 mls/hr 04/06/21 14:30 04/06/21 18:43 Levaquin 750mg/150ml IV 100 mls/hr Q48H INESSA Administration Protocol Vancomycin HCl 2,000 mg/ 540 mls @ 250 mls/hr 04/07/21 14:00 Sodium Chloride IV 04/07/21 16:09 ONCE@1400 ONE Propofol 1,000 mg in 100 mls @ 4.26 mls/hr 04/07/21 13:00 Diprivan 10 Mg/Ml IV TITR INESSA Protocol 5 MCG/KG/MIN Insulin Human Lispro 0 unit 03/14/21 12:00 04/07/21 05:42 Insulin Lispro 100 Unit/Ml SUB-Q 2 unit Q6HR INESSA Administration Protocol Lorazepam 1 mg 03/13/21 19:40 03/30/21 19:58 Lorazepam 2 Mg/Ml Vial IV 1 mg Q4H PRN Administration Anxiety Methylprednisolone Sodium Succinate 40 mg 04/05/21 14:00 04/07/21 05:26 Methylprednisolone Sod Succinate 125 Mg/2 Ml Inj IV 40 mg Q8HR INESSA Administration Multi-Ingred Cream/Lotion/Oil/Oint 1 applic 03/14/21 17:50 04/02/21 14:31 Mineral Oil/Petrolatum, White Ophth Oint 3.5 Gm OU 1 applic Q4HR PRN Administration Dry Eye(s) Ondansetron HCl 4 mg 03/13/21 19:30 03/21/21 12:05 Ondansetron 4 Mg/2 Ml Inj IV 4 mg Q8H PRN Administration Nausea And Vomiting Quetiapine Fumarate 300 mg 04/06/21 22:00 04/07/21 09:55 Quetiapine 100 Mg Tab PO 300 mg BID INESSA Administration Senna/Docusate Sodium 1 tab 03/14/21 22:00 04/07/21 09:23 Sennosides/Docusate Sodium 8.6/50 Mg Tab FEEDTUBE 1 tab BID INESSA Administration Simple Syrup 15 ml 03/15/21 11:42 Simple Syrup 15 Ml FEEDTUBE PRN PRN Hypoglycemia Simple Syrup 30 ml 03/15/21 11:42 Simple Syrup 15 Ml FEEDTUBE PRN PRN Hypoglycemia Sodium Bicarbonate 325 mg 03/15/21 11:42 03/21/21 17:21 Sodium Bicarbonate 325 Mg Tab FEEDTUBE 325 mg PRN PRN Administration For Clogged Feeding Tube Sodium Chloride 10 ml 03/13/21 22:00 04/07/21 09:23 Sodium Chloride 0.9% 10 Ml Flush Syringe IV 10 ml BID INESSA Administration Sodium Chloride 10 ml 03/13/21 19:30 Sodium Chloride 0.9% 10 Ml Flush Syringe IV PRN PRN LINE FLUSH Zinc Sulfate 220 mg 03/14/21 22:00 04/07/21 09:23 Zinc Sulfate 220 Mg Cap PO 220 mg BID INESSA Administration Nutrition/Malnutrition Assess - Dietary Evaluation Nutrition/Malnutrition Findings: Nutrition Notes Start: 03/15/21 11:06 Freq: Status: Active Protocol: Document 04/02/21 15:08 REJI (Rec: 04/02/21 15:19 REJI [id number]) Nutrition Notes Initial or Follow up Reassessment Current Diagnosis Acute Kidney Injury, Hypertension,Respiratory Failure Other Pertinent Diagnosis COVID-19 pneu, periorbital edema Current Diet TF - Nepro at 44ml/hr Labs/Tests Na 132 K 5.3 BUN 80 Cr 6.8 BG 174 Triglycerides 579 Pertinent Medications Propofol at 32.985ml/hr ( provides 871 kcal), Human Albumin, Solumedrol, Levophed gtt, Phenylephrine gtt, Vasopressin gtt, Kionex Height 5 ft 5 in Weight 137.438 kg [place] Body Weight (kg) 56.81 BMI 50.4 Weight Status Morbidly Obese Subjective/Other Information Spoke with pt's RN via phone at 15:06. Pt tolerating TF at goal rate, despite being on three pressors. Per RN, been able to decrease pressor concentration. Pt been spiking a fever for past few days; Artic sun blanket in place to lower body temperature. Pt remains on vent support. Percent of energy/protein needs met: 99% energy 73% pro Burn Absent Trauma Absent Minimum of two criteria No #1 Nutrition Diagnosis Swallowing difficulty Diagnosis Progress(for reassessment Continues documentation) Is patient on ventilator? Yes Is Patient Ambulatory and/or Out of Bed No REE-([facility]-confined to bed) 2515.536 Kcal/Kg value to use for calculation 14 Approximate Energy Requirements Using 1924 kcal/Kg Calculation Used for Recommendations Kcal/kg Additional Notes Pro needs >1.2g/kg adjBW: > 117g/day Fluid needs 1-1.5L/day Nutrition Intervention Nutrition Support: Continue Nepro at 44ml/hr. Provide 120ml water flush q4h Kcal 1,901 Protein (gm) 86 Carbohydrates (gm) 170 Fat (gm) 101 Fluid (mL) 768 Fiber (gm) 13 Goal #1 TF tolerance Goal #2 TF to meet at least 75% energy and pro needs Follow-Up By: 04/09/21 Additional Comments F/U: stable TF, vent status, wt, propofol, pressor support, rectal tube <SAURABH ALBRECHT - Last Filed: 04/15/21 07:26> Assessment and Plan Assessment and plan: I saw and evaluated the patient. Discussed with the nurse practitioner and agree with their findings and plan as documented in this note. I saw and evaluated the patient. Discussed with the nurse practitioner and agree with their findings and plan as documented in this note. Hospitalist Physical - Constitutional Vitals: Temp Pulse Resp BP Pulse Ox 99.3 F 117 H 13 106/40 99 04/14/21 14:46 04/14/21 15:12 04/14/21 14:46 04/14/21 15:12 04/14/21 15:12 Results - Labs CBC & Chem 7: 04/15/21 Unknown 04/15/21 Unknown Labs: Laboratory Last Values WBC 11.8 K/mm3 (4.5-11.0) H 04/14/21 04:43 RBC 2.58 M/mm3 (3.65-5.03) L 04/14/21 04:43 Hgb 7.5 gm/dl (10.1-14.3) L 04/14/21 04:43 Hct 23.4 % (30.3-42.9) L 04/14/21 04:43 MCV 91 fl (79-97) 04/14/21 04:43 MCH 29 pg (28-32) 04/14/21 04:43 MCHC 32 % (30-34) 04/14/21 04:43 RDW 17.1 % (13.2-15.2) H 04/14/21 04:43 Plt Count 45 K/mm3 (140-440) L 04/14/21 04:43 Lymph % (Auto) 10.7 % (13.4-35.0) L 03/28/21 09:37 [place] % (Auto) 5.2 % (0.0-7.3) 03/28/21 09:37 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 % (Auto) 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3) H 04/07/21 03:50 Basophils % (Manual) 2.0 % (0.0-1.8) H 04/03/21 04:30 Nucleated RBC % 2.0 % (0.0-0.9) H 04/07/21 03:50 Seg Neutrophils # 13.0 K/mm3 (1.8-7.7) H 03/28/21 09:37 Seg Neutrophils # Man 17.9 K/mm3 (1.8-7.7) H 04/07/21 03:50 Band Neutrophils # 0.0 K/mm3 04/07/21 03:50 Lymphocytes # (Manual) 2.7 K/mm3 (1.2-5.4) 04/07/21 03:50 Abs React Lymphs (Man) 0.0 K/mm3 04/07/21 03:50 Monocytes # (Manual) 1.1 K/mm3 (0.0-0.8) H 04/07/21 03:50 Eosinophils # (Manual) 5.1 K/mm3 (0.0-0.4) H 04/07/21 03:50 Basophils # (Manual) 0.0 K/mm3 (0.0-0.1) 04/07/21 03:50 Metamyelocytes # 0.0 K/mm3 04/07/21 03:50 Myelocytes # 0.0 K/mm3 04/07/21 03:50 Promyelocytes # 0.0 K/mm3 04/07/21 03:50 Blast Cells # 0.0 K/mm3 04/07/21 03:50 WBC Morphology Not Reportable 04/07/21 03:50 Hypersegmented Neuts Not Reportable 04/07/21 03:50 Hyposegmented Neuts Not Reportable 04/07/21 03:50 Hypogranular Neuts Not Reportable 04/07/21 03:50 Smudge Cells Not Reportable 04/07/21 03:50 Toxic Granulation Not Reportable 04/07/21 03:50 Toxic Vacuolation Not Reportable 04/07/21 03:50 Dohle Bodies Not Reportable 04/07/21 03:50 Pelger-Huet Anomaly Not Reportable 04/07/21 03:50 Bridgette Rods Not Reportable 04/07/21 03:50 Platelet Estimate Consistent w auto 04/07/21 03:50 Clumped Platelets Not Reportable 04/07/21 03:50 Plt Clumps, EDTA Not Reportable 04/07/21 03:50 Large Platelets Not Reportable 04/07/21 03:50 Giant Platelets Not Reportable 04/07/21 03:50 Platelet Satelliting Not Reportable 04/07/21 03:50 Plt Morphology Comment Not Reportable 04/07/21 03:50 RBC Morphology Not Reportable 04/07/21 03:50 Dimorphic RBCs Not Reportable 04/07/21 03:50 Polychromasia Not Reportable 04/07/21 03:50 Hypochromasia Not Reportable 04/07/21 03:50 Poikilocytosis Not Reportable 04/07/21 03:50 Anisocytosis 1+ 04/07/21 03:50 Microcytosis Not Reportable 04/07/21 03:50 Macrocytosis Not Reportable 04/07/21 03:50 Spherocytes Not Reportable 04/07/21 03:50 Pappenheimer Bodies Not Reportable 04/07/21 03:50 Sickle Cells Not Reportable 04/07/21 03:50 Target Cells 1+ 04/07/21 03:50 Tear Drop Cells Not Reportable 04/07/21 03:50 Ovalocytes Not Reportable 04/07/21 03:50 Helmet Cells Not Reportable 04/07/21 03:50 Kebede-Staunton Bodies Not Reportable 04/07/21 03:50 [place] Rings Not Reportable 04/07/21 03:50 Balaji Cells Not Reportable 04/07/21 03:50 Bite Cells Not Reportable 04/07/21 03:50 Crenated Cell Not Reportable 04/07/21 03:50 Elliptocytes Not Reportable 04/07/21 03:50 Acanthocytes (Spur) Not Reportable 04/07/21 03:50 Rouleaux Not Reportable 04/07/21 03:50 Hemoglobin C Crystals Not Reportable 04/07/21 03:50 Schistocytes Not Reportable 04/07/21 03:50 Malaria parasites Not Reportable 04/07/21 03:50 Percent Retic 4.52 % (0.78-2.58) H 03/31/21 09:49 Vaibhav Bodies Not Reportable 04/07/21 03:50 Hem Pathologist Commnt No 04/07/21 03:50 PT 16.0 Sec. (12.2-14.9) H 04/13/21 04:44 INR 1.16 (0.87-1.13) H 04/13/21 04:44 APTT 28.9 Sec. (24.2-36.6) 04/04/21 07:55 Fibrinogen 400 mg/dl (211-480) 04/14/21 09:45 D-Dimer 2696.79 ng/mlDDU (0-234) H 04/08/21 04:40 Heparin Anti-Xa, Unfract TNR 03/22/21 08:20 ABG pH 7.354 (7.320-7.450) 04/13/21 21:00 POC ABG pCO2 48.6 mmHg (32.0-48.0) H 04/13/21 21:00 ABG pCO2 68.6 mm Hg 04/13/21 03:52 POC ABG pO2 93.8 mmHg (83-108) 04/13/21 21:00 ABG pO2 98.9 mm Hg (80.0-90.0) H 04/13/21 03:52 POC ABG HCO3 26.5 04/13/21 21:00 ABG HCO3 25.5 mmol/L (20.0-26.0) 04/13/21 03:52 ABG O2 Saturation 97.0 (0-100) 04/13/21 21:00 ABG O2 Content 10.0 (0.0-44) 04/13/21 03:52 POC ABG Base Excess 0.7 04/13/21 21:00 ABG Base Excess -2.9 mmol/L (-2.0-3.0) L 04/13/21 03:52 ABG Hemoglobin 8.3 (12.0-17.5) L 04/13/21 21:00 ABG Oxyhemoglobin 96.3 (94-98) 04/13/21 21:00 ABG Carboxyhemoglobin 1.9 % (0.0-5.0) 04/13/21 03:52 ABG Methemoglobin 0.3 (0.0-1.5) 04/13/21 21:00 ABG Sodium 134.6 mmol/L (136.0-145.0) L 04/13/21 21:00 ABG Potassium 4.0 mmol/L (3.40-4.50) 04/13/21 21:00 ABG Chloride 101.0 mmol/L (98-107) 04/13/21 21:00 ABG Glucose 243 mg/dL (65-95) H 04/13/21 21:00 ABG Lactate Cancelled 04/03/21 20:45 Oxyhemoglobin 94.3 % (95.0-99.0) L 04/13/21 03:52 Carboxyhemoglobin 0.4 (0.5-1.5) L 04/13/21 21:00 FiO2 65 % 04/13/21 03:52 FiO2 % 60.0 04/13/21 21:00 Sodium 139 mmol/L (137-145) 04/14/21 04:43 Potassium 4.2 mmol/L (3.6-5.0) 04/14/21 04:43 Chloride 99.9 mmol/L (98-107) 04/14/21 04:43 Carbon Dioxide 24 mmol/L (22-30) 04/14/21 04:43 Anion Gap 19 mmol/L 04/14/21 04:43 BUN 74 mg/dL (7-17) H 04/14/21 04:43 Creatinine 3.1 mg/dL (0.6-1.2) H 04/14/21 04:43 Estimated GFR 21 ml/min 04/14/21 04:43 BUN/Creatinine Ratio 24 % 04/14/21 04:43 Glucose 220 mg/dL (65-100) H 04/14/21 04:43 POC Glucose 160 mg/dL (70-105) H 04/14/21 11:10 Hemoglobin A1c 6.3 % (4-6) H 03/15/21 05:09 Lactic Acid 0.80 mmol/L (0.7-2.0) 04/07/21 03:50 Calcium 8.4 mg/dL (8.4-10.2) 04/14/21 04:43 Phosphorus 6.80 mg/dL (2.5-4.5) H 04/13/21 04:44 Magnesium 2.10 mg/dL (1.7-2.3) 04/13/21 04:44 Ferritin 151.6 ng/mL (10.0-200.0) 03/18/21 04:30 Total Bilirubin 0.80 mg/dL (0.1-1.2) 04/07/21 04:00 Bilirubin Cancelled 04/03/21 20:45 AST 38 units/L (5-40) 04/07/21 04:00 ALT 38 units/L (7-56) 04/07/21 04:00 Alkaline Phosphatase 167 units/L (35-129) H 04/07/21 04:00 Lactate Dehydrogenase 394 units/L (91-180) H 04/05/21 05:20 C-Reactive Protein 26.10 mg/dL (0.00-1.30) H 04/08/21 04:00 Total Protein 6.6 g/dL (6.3-8.2) 04/07/21 04:00 Albumin 2.8 g/dL (3.9-5) L 04/07/21 04:00 Albumin/Globulin Ratio 0.7 % 04/07/21 04:00 Triglycerides 406 mg/dL (2-149) H 04/11/21 04:15 Serotonin Release Assay TNR 03/22/21 08:20 Procalcitonin < 0.05 ng/mL (<0.15) 03/13/21 15:40 HCG, Qual Negative (Negative) 03/13/21 13:26 Arterial Blood Glucose 243 mg/dL (65-95) H 04/13/21 21:00 Arterial Blood Ionized Calcium 4.6 mg/dL (4.6-5.3) 04/13/21 21:00 Urine Color Sweta (Yellow) 04/06/21 Unknown Urine Turbidity Cloudy (Clear) 04/06/21 Unknown Urine pH 5.0 (5.0-7.0) 04/06/21 Unknown Ur Specific [place] 1.020 (1.003-1.030) 04/06/21 Unknown Urine Protein 100 mg/dl mg/dL (Negative) 04/06/21 Unknown Urine Glucose (UA) Neg mg/dL (Negative) 04/06/21 Unknown Urine Ketones Neg mg/dL (Negative) 04/06/21 Unknown Urine Blood Mod (Negative) 04/06/21 Unknown Urine Nitrite Neg (Negative) 04/06/21 Unknown Urine Bilirubin Neg (Negative) 04/06/21 Unknown Urine Urobilinogen < 2.0 mg/dL (<2.0) 04/06/21 Unknown Ur Leukocyte Esterase Neg (Negative) 04/06/21 Unknown Urine WBC (Auto) 148.0 /HPF (0.0-6.0) H 04/06/21 Unknown Urine RBC (Auto) > 182.0 /HPF (0.0-6.0) 04/06/21 Unknown U Epithel Cells (Auto) 102.0 /HPF (0-13.0) H 04/06/21 Unknown Urine Bacteria (Auto) 1+ /HPF (Negative) 04/06/21 Unknown Ur Renal Epithelial Cell 151 /LPF 04/06/21 Unknown Urine Mucus Few /HPF 04/06/21 Unknown Urine Yeast (Budding) 3+ /HPF 04/06/21 Unknown Urine Creatinine 40.1 mg/dL (0.1-20.0) H 03/14/21 17:50 Urine Sodium 124 mmol/L 03/14/21 17:50 Random Vancomycin 13.6 ug/mL (0-40.0) 04/12/21 04:30 KIMBERLEY Screen Negative (Negative) 04/07/21 08:27 Heparin-induced Plt Ab Negative (Negative) 03/22/21 08:20 UF Heparin High Dose TNR 03/22/21 08:20 JUAN UFH Low Dose 0.1 TNR 03/22/21 08:20 JUAN UFH Low Dose 0.5 TNR 03/22/21 08:20 Coronavirus (PCR) Negative (Negative) 04/04/21 09:00 Hepatitis A IgM Ab Non-reactive (NonReactive) 03/15/21 05:09 Hep Bs Antigen Nonreactive (Negative) 03/15/21 05:09 Hep B Core IgM Ab Non-reactive (NonReactive) 03/15/21 05:09 Hepatitis C Antibody Non-reactive (NonReactive) 03/15/21 05:09 Schistocytes Smear None seen 03/31/21 12:11 Blood Type O POSITIVE 04/11/21 13:39 Antibody Screen Negative 04/11/21 13:39 Direct Antiglob Test Negative 03/31/21 23:18 NIKOLE, Poly Interpret Negative 03/31/21 23:18 Crossmatch See Detail 04/11/21 13:39 Microbiology: Microbiology 04/11/21 15:05 Bronchial Washings - Left Upper Lobe Respiratory Culture - Preliminary Enterococcus Species Bazan/IV: Voiding Method Incontinent Active Medications - Current Medications Current Medications: Generic Name Dose Route Start Last Admin Trade Name Freq PRN Reason Stop Dose Admin Acetaminophen 650 mg 03/31/21 12:41 04/13/21 07:55 Acetaminophen 325 Mg/10.15 Ml Oral Liqd Unit Dose FEEDTUBE 650 mg Q6H PRN Administration TEMP >/=100.4 Albumin Human 25 gm 04/01/21 08:19 04/01/21 16:23 Albumin Human 25% (25 Gm/100 Ml) Inj IV 25 gm KARLOS PRN Administration Hypotension Albuterol 2.5 mg 03/19/21 00:53 Albuterol 2.5 Mg/3 Ml Nebu IH Q4HRT PRN Shortness Of Breath Albuterol/Ipratropium 1 ampul 03/19/21 08:00 04/14/21 13:54 Ipratropium/Albuterol Sulfate 3 Ml Ampul.Neb IH Not Given Q6HRT INESSA Lipase/Protease/Amylase 1 each 04/09/21 17:17 Lipase 10,500/Protease 25,000/Amylase 43,750 (Units) Cap FEEDTUBE PRN PRN For Clogged Feeding Tube Ascorbic Acid 500 mg 03/14/21 22:00 04/14/21 09:08 Ascorbic Acid 500 Mg Tab PO 500 mg BID INESSA Administration Calcium Acetate 1,334 mg 04/03/21 20:00 04/14/21 13:43 Calcium Acetate 667 Mg Cap FEEDTUBE 1,334 mg TID INESSA Administration Dextrose 50 ml 03/14/21 11:02 03/15/21 11:40 Dextrose 50% In Water (25gm) 50 Ml Syringe IV 50 ml Q30MIN PRN Administration Hypoglycemia Protocol Diphenhydramine HCl 50 mg 04/13/21 18:00 04/14/21 11:23 Diphenhydramine 50 Mg/Ml Vial IV 04/14/21 18:01 50 mg Q6HR INESSA Administration Famotidine 10 mg 03/17/21 22:00 04/14/21 09:08 Famotidine 10 Mg Tab PO 10 mg BID INESSA Administration Fentanyl 50 mcg 03/15/21 10:43 04/05/21 21:32 Fentanyl 100 Mcg/2 Ml Inj IV 50 mcg Q10MIN PRN Administration ANALGESIA Hydrocortisone Sodium Succinate 100 mg 04/10/21 00:00 04/14/21 15:44 Hydrocortisone Sod Succ 100 Mg/2 Ml Vial IV 100 mg Q8H INESSA Administration Hydrophilic Ointment 1 applic 03/14/21 17:50 Lip Therapy Vaseline TP Q2HR PRN Dry Lips Fentanyl Citrate 2,000 mcg in 100 mls @ 6.872 mls/hr 03/15/21 11:00 04/14/21 15:46 Fentanyl Drip Premix IV 4 mcg/kg/hr TITR INESSA 27.488 mls/hr Administration Protocol 1 MCG/KG/HR Sodium Chloride 500 mls @ 1 mls/hr 03/16/21 17:19 Nacl 0.9% 500 Ml IV DIRECT PRN ARTERIAL LINE FLUSH Midazolam HCl 100 mg/ Sodium 100 mls @ 1 mls/hr 03/30/21 15:00 04/14/21 11:25 Chloride IV 5 mg/hr TITR INESSA 5 mls/hr Administration Protocol 1 MG/HR Vasopressin 20 unit/ Sodium 101 mls @ 9.09 mls/hr 03/30/21 20:00 04/14/21 11:25 Chloride IV 0.03 units/min TITR INESSA 9.09 mls/hr Administration 0.03 UNITS/MIN Phenylephrine HCl 100 mg/ 100 mls @ 3 mls/hr 03/31/21 04:00 04/06/21 07:58 Sodium Chloride IV 0 mcg/min TITR INESSA 0 mls/hr Titration Protocol 50 MCG/MIN Sodium Chloride 100 mls @ 999 mls/hr 04/01/21 08:19 Nacl 0.9% IV KARLOS PRN Hypotension Propofol 1,000 mg in 100 mls @ 4.26 mls/hr 04/07/21 13:00 04/12/21 12:52 Diprivan 10 Mg/Ml IV 0 mcg/kg/min TITR INESSA 0 mls/hr Titration Protocol 5 MCG/KG/MIN Micafungin Sodium 100 mg/ 100 mls @ 100 mls/hr 04/09/21 17:00 04/13/21 22:23 Sodium Chloride IV Not Given Q24H INESSA Protocol Norepinephrine 8 mg/ Sodium 8 mg in 258 mls @ 3.87 mls/hr 04/12/21 04:00 04/14/21 11:50 Chloride IV 10 mcg/min TITRATE INESSA 19.35 mls/hr Titration Protocol 2 MCG/MIN MEROPENEM/NS 1 GRAM/100 ML 1 gram in 100 mls @ 100 mls/hr 04/12/21 22:00 04/13/21 22:16 Merrem/Ns 1 Gram/100 Ml IV 100 mls/hr Q24H INESSA Administration Protocol Sodium Chloride 500 mls @ 0 mls/hr 04/14/21 08:37 Nacl 0.9% 500 Ml IV 04/14/21 23:59 ONCE NR As Directed Insulin Human Lispro 0 unit 03/14/21 12:00 04/14/21 11:23 Insulin Lispro 100 Unit/Ml SUB-Q 3 unit Q6HR INESSA Administration Protocol Lorazepam 1 mg 03/13/21 19:40 03/30/21 19:58 Lorazepam 2 Mg/Ml Vial IV 1 mg Q4H PRN Administration Anxiety Multi-Ingred Cream/Lotion/Oil/Oint 1 applic 03/14/21 17:50 04/10/21 22:03 Mineral Oil/Petrolatum, White Ophth Oint 3.5 Gm OU 1 applic Q4HR PRN Administration Dry Eye(s) Ondansetron HCl 4 mg 03/13/21 19:30 03/21/21 12:05 Ondansetron 4 Mg/2 Ml Inj IV 4 mg Q8H PRN Administration Nausea And Vomiting Quetiapine Fumarate 300 mg 04/06/21 22:00 04/14/21 09:08 Quetiapine 100 Mg Tab PO 300 mg BID INESSA Administration Senna/Docusate Sodium 1 tab 03/14/21 22:00 04/14/21 09:09 Sennosides/Docusate Sodium 8.6/50 Mg Tab FEEDTUBE Not Given BID INESSA Simple Syrup 15 ml 04/09/21 17:17 Simple Syrup 15 Ml FEEDTUBE PRN PRN Hypoglycemia Simple Syrup 30 ml 04/09/21 17:17 Simple Syrup 15 Ml FEEDTUBE PRN PRN Hypoglycemia Sodium Bicarbonate 325 mg 04/09/21 17:17 Sodium Bicarbonate 325 Mg Tab FEEDTUBE PRN PRN For Clogged Feeding Tube Sodium Chloride 10 ml 03/13/21 22:00 04/14/21 09:09 Sodium Chloride 0.9% 10 Ml Flush Syringe IV 10 ml BID INESSA Administration Sodium Chloride 10 ml 03/13/21 19:30 Sodium Chloride 0.9% 10 Ml Flush Syringe IV PRN PRN LINE FLUSH Zinc Sulfate 220 mg 03/14/21 22:00 04/14/21 09:08 Zinc Sulfate 220 Mg Cap PO 220 mg BID INESSA Administration Nutrition/Malnutrition Assess - Dietary Evaluation Nutrition/Malnutrition Findings: Nutrition Notes Start: 03/15/21 11:06 Freq: Status: Active Protocol: Document 04/14/21 11:13 CANDACE (Rec: 04/14/21 11:52 CANDACE [id number]) Nutrition Notes Initial or Follow up Reassessment Other Pertinent Diagnosis [id number], Transaminitis, Hyperglycemia. Current Diet TF -Glucerna 1.2 Abdullahi (since L 04/14). Labs/Tests 04/14: BUN 74, Crea 3.1, Glu 220. Pertinent Medications 04/14 Vit C, D50w (25 g) mEq, Insulin, Zn, Propofol 1,000 mg /100 ml @ 4.26 ml/hr, others nutritionally unremarkable. Height 5 ft 5 in Weight 142 kg [place] Body Weight (kg) 56.81 BMI 52.0 Weight change and time frame No new reports on body weight changes, Weight Status Morbidly Obese Subjective/Other Information RD consult on change TF from Nepro w/CARBSTEADY to Glucerna 1,2 Abdullahi, due to lack of stock Nepro. Percent of energy/protein needs met: 100% Kcal; 85% AA. Burn Absent Trauma Absent GI Symptoms None Food Allergy No Skin Integrity/Comment Clear, warm, dry. Current % PO Other Minimum of two criteria No Is patient on ventilator? Yes Is Patient Ambulatory and/or Out of Bed No REE-([facility]-confined to bed) 2570.232 Kcal/Kg value to use for calculation 14 Approximate Energy Requirements Using 1988 kcal/Kg Calculation Used for Recommendations Kcal/kg Additional Notes Pro needs >1.2g/kg adjBW: > 117g/day Fluid needs 1-1.5L/day Nutrition Intervention Nutrition Support: Change to Glucerna 1.2 Abdullahi @ 69 ml/hr. Flush: 109 ml water Q 4 hr. Kcal 1,988 Protein (gm) 99 Carbohydrates (gm) 190 Fat (gm) 99 Fluid (mL) 1,334 Fiber (gm) 27 % RDI: 100% Kcal; 85% AA. Goal #1 Maintain body weight within +/ -3% of admission BWt during LOS. Goal #2 Reach and maintain acceptable chemistry lab values during LOS. Follow-Up By: 04/16/21 Additional Comments Continue monitoring TF tolerance, Hydration, and BM.
[2021-04-07 13:58] LABS: Bacteria,Urine 1+ /HPF (Negative); Bilirubin,Urine NEG (Negative); Blood,Urine MOD (Negative); Color,Urine Amber (Yellow); Mucus,Urine FEW /HPF; Renal Epithelial Cells,Urine 151 /LPF; Urobilinogen,Urine < 2.0 mg/dL (<2.0)
[2021-04-07] MEDS ORDERED: VANCOMYCIN 2,000 MG in SODIUM CHLORIDE 0.9% 500 ML 500 ML IV ONE (14:00)
[2021-04-07 14:03] LABS: RBC,Urine > 182.0 /HPF (0.0-6.0)
--- NOTE | 2021-04-07 14:44 | Electrocardiograph Report ---
[facility] Test Date: 2021-04-07 Test Time: 12:52:58 Pat Name: LAURA QUINTANILLA Department: Room: A261 1 Gender: F Ingredient Scaler: JUSTIN : 1990 Requested By: ANCELMO GONZALEZ Order Number: [id number] Reading MD: Brielle Garcia Measurements Intervals [place] Rate: 122 P: 57 PA: 128 QRS: 67 QRSD: 78 T: 260 QT: 258 QTc: 366 Interpretive Statements Sinus tachycardia Atrial premature complex Low voltage, precordial leads Compared to ECG 04/05/2021 22:13:19 Atrial premature complex(es) now present Electronically Signed On 04-07-2021 14:44:20 EST by Brielle Garcia
[2021-04-07] MEDS: MIDAZOLAM 100 MG in SODIUM CHLORIDE 0.9% 80 ML IV SCH (16:48)
--- NOTE | 2021-04-07 23:09 | Progress Note ---
Assessment and Plan Impression/Plan: #Acute kidney injury: dialysis dependent - s/p HD on 04/05, minimal uf due to low bp, HR - would ideally like UF removal today, but will hold off as patient remains clinically unstable with tachycardia, hypotension and is unstable for additional HD/UF removal - daily lytes - Assess daily for needs for additional sessions as hemodynamics - Strict input and output - Avoid nephrotoxins - Renally dose medications - Keep MAP > 65 #Hyperkalemia: stable today #Respiratory failure Covid 19 infection currently intubated UF as tolerated with HD, limited by hemodynamic instability #Hyperphosphatemia to be monitored Dialysis has been initiated #Hyponatremia: stable #Anemia--Hematology plans noted, plasma exchange noted #Overall prognosis remains poor, palliative care appropriate Subjective Date of service: 04/07/21 Principal diagnosis: Ac hypoxemic resp failure; AE-Asthma; SAI; Crohn's; COVID- 19; Pneumonia Interval history: Remains intubated, FiO2 50%, on 3 pressors. HR high in 130s. Tachypneic as well Objective - Exam Narrative Exam: General appearance: Intubated and sedated, obese Head: NC/AT Neck: Absent: masses or JVD, cervical LAD Respiratory: coarse mechanical sounds Heart: Present: S1 & S2, mildly tachycardic Extremities: pulses intact, pulses symmetrical; 3+ edema Peripheral Pulses: within normal limits General gastrointestinal: soft, non-tender Integumentary: dry Neurologic: sedated - Vital Signs Vital signs: Vital Signs - 12hr 04/07/21 04/07/21 04/07/21 11:16 11:30 11:46 Temperature Pulse Rate 127 H 127 H Pulse Rate [ Throughout] Respiratory 25 H 25 H Rate Respiratory Rate [ Throughout] Blood Pressure O2 Sat by Pulse 95 95 83 L Oximetry O2 Sat by Pulse Oximetry [ Anterior Bilateral Throughout] O2 Sat by Pulse Oximetry [ Throughout] 04/07/21 04/07/21 04/07/21 12:00 12:16 12:30 Temperature 101.3 F H Pulse Rate 127 H 127 H Pulse Rate [ Throughout] Respiratory 31 H Rate Respiratory Rate [ Throughout] Blood Pressure O2 Sat by Pulse 92 93 86 Oximetry O2 Sat by Pulse Oximetry [ Anterior Bilateral Throughout] O2 Sat by Pulse Oximetry [ Throughout] 04/07/21 04/07/21 04/07/21 12:45 12:46 12:50 Temperature 100 F H Pulse Rate 119 H 123 H 119 H Pulse Rate [ Throughout] Respiratory 32 H 36 H Rate Respiratory Rate [ Throughout] Blood Pressure 125/40 119/61 O2 Sat by Pulse 92 Oximetry O2 Sat by Pulse 92 Oximetry [ Anterior Bilateral Throughout] O2 Sat by Pulse 92 Oximetry [ Throughout] 04/07/21 04/07/21 04/07/21 13:00 13:15 13:16 Temperature Pulse Rate 122 H 124 H 125 H Pulse Rate [ Throughout] Respiratory 32 H 32 H Rate Respiratory Rate [ Throughout] Blood Pressure 114/55 101/50 O2 Sat by Pulse 93 89 Oximetry O2 Sat by Pulse Oximetry [ Anterior Bilateral Throughout] O2 Sat by Pulse Oximetry [ Throughout] 04/07/21 04/07/21 04/07/21 13:26 13:27 13:30 Temperature Pulse Rate 124 H 122 H Pulse Rate [ 124 H Throughout] Respiratory 25 H Rate Respiratory 30 H Rate [ Throughout] Blood Pressure 103/49 101/48 O2 Sat by Pulse 90 100 Oximetry O2 Sat by Pulse Oximetry [ Anterior Bilateral Throughout] O2 Sat by Pulse Oximetry [ Throughout] 04/07/21 04/07/21 04/07/21 13:45 13:46 14:00 Temperature Pulse Rate 125 H 124 H 124 H Pulse Rate [ Throughout] Respiratory 29 H 30 H Rate Respiratory Rate [ Throughout] Blood Pressure 117/53 119/59 O2 Sat by Pulse 94 94 Oximetry O2 Sat by Pulse Oximetry [ Anterior Bilateral Throughout] O2 Sat by Pulse Oximetry [ Throughout] 04/07/21 04/07/21 04/07/21 14:15 14:16 14:30 Temperature Pulse Rate 125 H 124 H 123 H Pulse Rate [ Throughout] Respiratory 30 H 29 H Rate Respiratory Rate [ Throughout] Blood Pressure 125/63 120/61 O2 Sat by Pulse 93 95 Oximetry O2 Sat by Pulse Oximetry [ Anterior Bilateral Throughout] O2 Sat by Pulse Oximetry [ Throughout] 04/07/21 04/07/21 04/07/21 14:45 14:46 15:00 Temperature Pulse Rate 123 H 123 H 123 H Pulse Rate [ Throughout] Respiratory 29 H 27 H Rate Respiratory Rate [ Throughout] Blood Pressure 122/61 133/68 O2 Sat by Pulse 96 94 Oximetry O2 Sat by Pulse Oximetry [ Anterior Bilateral Throughout] O2 Sat by Pulse Oximetry [ Throughout] 04/07/21 04/07/21 04/07/21 15:15 15:16 15:30 Temperature Pulse Rate 125 H 124 H 124 H Pulse Rate [ Throughout] Respiratory 26 H 28 H Rate Respiratory Rate [ Throughout] Blood Pressure 120/64 121/62 O2 Sat by Pulse 95 95 Oximetry O2 Sat by Pulse Oximetry [ Anterior Bilateral Throughout] O2 Sat by Pulse Oximetry [ Throughout] 04/07/21 04/07/21 04/07/21 15:46 15:50 16:00 Temperature 100.1 F H Pulse Rate 127 H 128 H 132 H Pulse Rate [ Throughout] Respiratory 29 H 29 H Rate Respiratory Rate [ Throughout] Blood Pressure 126/67 119/65 O2 Sat by Pulse 94 92 Oximetry O2 Sat by Pulse 87 Oximetry [ Anterior Bilateral Throughout] O2 Sat by Pulse 87 Oximetry [ Throughout] 04/07/21 04/07/21 04/07/21 16:16 16:30 16:46 Temperature Pulse Rate 130 H 133 H 133 H Pulse Rate [ Throughout] Respiratory 28 H 35 H 39 H Rate Respiratory Rate [ Throughout] Blood Pressure O2 Sat by Pulse 98 92 85 Oximetry O2 Sat by Pulse Oximetry [ Anterior Bilateral Throughout] O2 Sat by Pulse Oximetry [ Throughout] 04/07/21 04/07/21 04/07/21 16:55 16:59 17:00 Temperature 99.3 F Pulse Rate 73 129 H Pulse Rate [ Throughout] Respiratory 31 H Rate Respiratory Rate [ Throughout] Blood Pressure 140/68 O2 Sat by Pulse 90 97 Oximetry O2 Sat by Pulse Oximetry [ Anterior Bilateral Throughout] O2 Sat by Pulse Oximetry [ Throughout] 04/07/21 04/07/21 04/07/21 17:16 17:30 17:46 Temperature Pulse Rate 130 H 133 H 131 H Pulse Rate [ Throughout] Respiratory 32 H 31 H 34 H Rate Respiratory Rate [ Throughout] Blood Pressure O2 Sat by Pulse 91 84 91 Oximetry O2 Sat by Pulse Oximetry [ Anterior Bilateral Throughout] O2 Sat by Pulse Oximetry [ Throughout] 04/07/21 04/07/21 04/07/21 18:00 18:16 18:30 Temperature Pulse Rate 131 H 131 H 133 H Pulse Rate [ Throughout] Respiratory 31 H 31 H 33 H Rate Respiratory Rate [ Throughout] Blood Pressure O2 Sat by Pulse 91 89 86 Oximetry O2 Sat by Pulse Oximetry [ Anterior Bilateral Throughout] O2 Sat by Pulse Oximetry [ Throughout] 1104/07/21 04/07/21 18:46 19:00 19:16 Temperature Pulse Rate 129 H 129 H 128 H Pulse Rate [ Throughout] Respiratory 31 H 29 H 32 H Rate Respiratory Rate [ Throughout] Blood Pressure O2 Sat by Pulse 94 93 93 Oximetry O2 Sat by Pulse Oximetry [ Anterior Bilateral Throughout] O2 Sat by Pulse Oximetry [ Throughout] 04/07/21 04/07/21 04/07/21 19:30 19:41 19:46 Temperature 101.0 F H Pulse Rate 130 H 133 H Pulse Rate [ Throughout] Respiratory 31 H 31 H Rate Respiratory Rate [ Throughout] Blood Pressure O2 Sat by Pulse 89 93 Oximetry O2 Sat by Pulse Oximetry [ Anterior Bilateral Throughout] O2 Sat by Pulse Oximetry [ Throughout] 04/07/21 04/07/21 04/07/21 20:00 20:16 20:27 Temperature Pulse Rate 130 H 130 H 130 H Pulse Rate [ Throughout] Respiratory 31 H 28 H Rate Respiratory Rate [ Throughout] Blood Pressure 119/70 O2 Sat by Pulse 91 94 94 Oximetry O2 Sat by Pulse Oximetry [ Anterior Bilateral Throughout] O2 Sat by Pulse Oximetry [ Throughout] 04/07/21 04/07/21 04/07/21 20:30 20:46 20:47 Temperature Pulse Rate 128 H 128 H Pulse Rate [ 130 H Throughout] Respiratory 25 H 28 H Rate Respiratory Rate [ Throughout] Blood Pressure O2 Sat by Pulse 100 97 Oximetry O2 Sat by Pulse Oximetry [ Anterior Bilateral Throughout] O2 Sat by Pulse Oximetry [ Throughout] 04/07/21 04/07/21 04/07/21 21:00 21:16 21:30 Temperature Pulse Rate 126 H 126 H 126 H Pulse Rate [ Throughout] Respiratory 24 26 H 31 H Rate Respiratory Rate [ Throughout] Blood Pressure O2 Sat by Pulse 98 98 98 Oximetry O2 Sat by Pulse Oximetry [ Anterior Bilateral Throughout] O2 Sat by Pulse Oximetry [ Throughout] 04/07/21 04/07/21 04/07/21 21:40 21:46 22:00 Temperature Pulse Rate 130 H 130 H Pulse Rate [ Throughout] Respiratory 30 H 29 H Rate Respiratory Rate [ Throughout] Blood Pressure O2 Sat by Pulse 97 96 97 Oximetry O2 Sat by Pulse Oximetry [ Anterior Bilateral Throughout] O2 Sat by Pulse Oximetry [ Throughout] - Lab 04/07/21 03:50 04/07/21 04:00 Most recent lab results ABG pH 7.209 (7.320-7.450) L 04/07/21 21:30 ABG pCO2 48.4 mm Hg 04/05/21 21:40 ABG pO2 65.6 mm Hg (80.0-90.0) L 04/05/21 21:40 ABG HCO3 24.7 mmol/L (20.0-26.0) 04/05/21 21:40 ABG O2 Saturation 95.6 (0-100) 04/07/21 21:30 Calcium 7.9 mg/dL (8.4-10.2) L 04/07/21 04:00 Phosphorus 6.90 mg/dL (2.5-4.5) H D 04/06/21 06:00 Magnesium 2.00 mg/dL (1.7-2.3) 04/06/21 06:00 Urine Creatinine 40.1 mg/dL (0.1-20.0) H 03/14/21 17:50 Urine Sodium 124 mmol/L 03/14/21 17:50 Medications & Allergies - Medications Allergies/Adverse Reactions: Allergies oxycodone HCl [From Percocet] Allergy (Severe, Verified 03/30/21 14:01) Swelling cefepime Allergy (Verified 04/06/21 13:38) Rash hydrocodone bitartrate [From Vicodin] Allergy (Verified 03/31/21 08:20) Swelling ALLERGY TO TYLENOL VS OXYCODONE ACTIVE ORDER REMOVED FROM [facility] SINCE UNABLE TO CONFIRM WITH FAMILY Home Medications: Home Medications Medication Instructions Recorded Confirmed Last Taken Type Chlorhexidine Mouthwash [Peridex] 15 ml MM BID #1 bottle 10/11/20 03/13/21 Unknown Rx Clindamycin [Clindamycin CAP] 300 mg PO Q8H #21 cap 10/11/20 03/13/21 Unknown Rx Naproxen 500 mg PO Q12H PRN #12 tablet 10/11/20 03/13/21 Unknown Rx Butalb/Acetamin/Caff 50-325-40 1 - 2 tab PO Q6HR PRN #15 tab 12/05/20 03/13/21 Unknown Rx [Fioricet 50-325-40] Famotidine [Pepcid] 20 mg PO BID #30 tablet 12/05/20 03/13/21 Unknown Rx Ketorolac [Toradol] 10 mg PO Q8H PRN #20 tablet 12/05/20 03/13/21 Unknown Rx Ondansetron [Zofran Odt] 4 mg PO Q6HR PRN #20 tab.rapdis 12/05/20 03/13/21 Unknown Rx Albuterol Sulfate [Proair 90 mcg IH Q4HR PRN #2 aer.[email or web address] 01/01/21 03/13/21 Unknown Rx Respiclick] Mupirocin [Bactroban 2% OINT] 1 applic TP BID 7 Days #1 tube 01/01/21 03/13/21 Unknown Rx Triamcinolone Aceton 0.1% (Nf) 1 applic TP BID 14 Days #1 tube 01/01/21 03/13/21 Unknown Rx [Kenalog (NF)] predniSONE [Deltasone] 40 mg PO QDAY #8 tab 01/01/21 03/13/21 Unknown Rx Active Medications: Generic Name Dose Route Start Last Admin Trade Name Freq PRN Reason Stop Dose Admin Acetaminophen 650 mg 03/31/21 12:41 04/07/21 16:56 Acetaminophen 325 Mg/10.15 Ml Oral Liqd Unit Dose FEEDTUBE 650 mg Q6H PRN Administration TEMP >/=100.4 Albumin Human 25 gm 04/01/21 08:19 04/01/21 16:23 Albumin Human 25% (25 Gm/100 Ml) Inj IV 25 gm KARLOS PRN Administration Hypotension Albuterol 2.5 mg 03/19/21 00:53 Albuterol 2.5 Mg/3 Ml Nebu IH Q4HRT PRN Shortness Of Breath Albuterol/Ipratropium 1 ampul 03/19/21 08:00 04/07/21 20:46 Ipratropium/Albuterol Sulfate 3 Ml Ampul.Neb IH Not Given Q6HRT INESSA Lipase/Protease/Amylase 1 each 03/15/21 11:42 Lipase 10,500/Protease 25,000/Amylase 43,750 (Units) Dr White FEEDTUBE PRN PRN For Clogged Feeding Tube Apixaban 2.5 mg 03/29/21 13:00 04/07/21 21:41 Apixaban 2.5 Mg Tab PO 2.5 mg Q12HR INESSA Administration Protocol Ascorbic Acid 500 mg 03/14/21 22:00 04/07/21 21:42 Ascorbic Acid 500 Mg Tab PO 500 mg BID INESSA Administration Calcium Acetate 1,334 mg 04/03/21 20:00 04/07/21 21:41 Calcium Acetate 667 Mg Cap FEEDTUBE 1,334 mg TID INESSA Administration Dextrose 50 ml 03/14/21 11:02 03/15/21 11:40 Dextrose 50% In Water (25gm) 50 Ml Syringe IV 50 ml Q30MIN PRN Administration Hypoglycemia Protocol Famotidine 10 mg 03/17/21 22:00 04/07/21 21:41 Famotidine 10 Mg Tab PO 10 mg BID INESSA Administration Fentanyl 50 mcg 03/15/21 10:43 04/05/21 21:32 Fentanyl 100 Mcg/2 Ml Inj IV 50 mcg Q10MIN PRN Administration ANALGESIA Hydromorphone HCl 1 mg 04/06/21 11:32 04/06/21 17:01 Hydromorphone 1 Mg/1 Ml Inj IV 04/13/21 11:31 1 mg Q4H PRN Administration Pain , Severe (7-10) Hydrophilic Ointment 1 applic 03/14/21 17:50 Lip Therapy Vaseline TP Q2HR PRN Dry Lips Fentanyl Citrate 2,000 mcg in 100 mls @ 6.872 mls/hr 03/15/21 11:00 04/07/21 21:40 Fentanyl Drip Premix IV 4 mcg/kg/hr TITR INESSA 27.488 mls/hr Administration Protocol 1 MCG/KG/HR Sodium Chloride 500 mls @ 1 mls/hr 03/16/21 17:19 Nacl 0.9% 500 Ml IV DIRECT PRN ARTERIAL LINE FLUSH NORepinephrine/NS 8 MG-250 ML 8 mg in 250 mls @ 3.75 mls/hr 03/23/21 11:00 04/07/21 18:03 Norepinephrine/Ns 8 Mg-250 Ml (Double Conc) IV 22 mcg/min TITRATE INESSA 41.25 mls/hr Administration Protocol 2 MCG/MIN Midazolam HCl 100 mg/ Sodium 100 mls @ 1 mls/hr 03/30/21 15:00 04/07/21 16:48 Chloride IV 8 mg/hr TITR INESSA 8 mls/hr Administration Protocol 1 MG/HR Vasopressin 20 unit/ Sodium 101 mls @ 9.09 mls/hr 03/30/21 20:00 04/07/21 18:03 Chloride IV 0.03 units/min TITR INESSA 9.09 mls/hr Administration 0.03 UNITS/MIN Phenylephrine HCl 100 mg/ 100 mls @ 3 mls/hr 03/31/21 04:00 04/06/21 07:58 Sodium Chloride IV 0 mcg/min TITR INESSA 0 mls/hr Titration Protocol 50 MCG/MIN Sodium Chloride 100 mls @ 999 mls/hr 04/01/21 08:19 Nacl 0.9% IV KARLOS PRN Hypotension Sodium Bicarbonate 150 meq/ 1,150 mls @ 75 mls/hr 04/02/21 22:00 04/07/21 16:21 Dextrose IV Infused DIRECT INESSA Infusion Aztreonam 1 gm in 50 mls @ 50 mls/hr 04/06/21 15:00 04/07/21 16:32 Azactam/Ns 1 Gm/50 Ml IV 50 mls/hr Q12H INESSA Administration Protocol Levofloxacin/Dextrose 750 mg in 150 mls @ 100 mls/hr 04/06/21 14:30 04/07/21 16:21 Levaquin 750mg/150ml IV Infused Q48H INESSA Infusion Protocol Propofol 1,000 mg in 100 mls @ 4.26 mls/hr 04/07/21 13:00 04/07/21 18:07 Diprivan 10 Mg/Ml IV 15 mcg/kg/min TITR INESSA 12.78 mls/hr Administration Protocol 5 MCG/KG/MIN Insulin Human Lispro 0 unit 03/14/21 12:00 04/07/21 17:14 Insulin Lispro 100 Unit/Ml SUB-Q 2 unit Q6HR INESSA Administration Protocol Lorazepam 1 mg 03/13/21 19:40 03/30/21 19:58 Lorazepam 2 Mg/Ml Vial IV 1 mg Q4H PRN Administration Anxiety Methylprednisolone Sodium Succinate 40 mg 04/05/21 14:00 04/07/21 16:33 Methylprednisolone Sod Succinate 125 Mg/2 Ml Inj IV 40 mg Q8HR INESSA Administration Multi-Ingred Cream/Lotion/Oil/Oint 1 applic 03/14/21 17:50 04/02/21 14:31 Mineral Oil/Petrolatum, White Ophth Oint 3.5 Gm OU 1 applic Q4HR PRN Administration Dry Eye(s) Ondansetron HCl 4 mg 03/13/21 19:30 03/21/21 12:05 Ondansetron 4 Mg/2 Ml Inj IV 4 mg Q8H PRN Administration Nausea And Vomiting Quetiapine Fumarate 300 mg 04/06/21 22:00 04/07/21 09:55 Quetiapine 100 Mg Tab PO 300 mg BID INESSA Administration Senna/Docusate Sodium 1 tab 03/14/21 22:00 04/07/21 21:42 Sennosides/Docusate Sodium 8.6/50 Mg Tab FEEDTUBE 1 tab BID INESSA Administration Simple Syrup 15 ml 03/15/21 11:42 Simple Syrup 15 Ml FEEDTUBE PRN PRN Hypoglycemia Simple Syrup 30 ml 03/15/21 11:42 Simple Syrup 15 Ml FEEDTUBE PRN PRN Hypoglycemia Sodium Bicarbonate 325 mg 03/15/21 11:42 03/21/21 17:21 Sodium Bicarbonate 325 Mg Tab FEEDTUBE 325 mg PRN PRN Administration For Clogged Feeding Tube Sodium Chloride 10 ml 03/13/21 22:00 04/07/21 09:23 Sodium Chloride 0.9% 10 Ml Flush Syringe IV 10 ml BID INESSA Administration Sodium Chloride 10 ml 03/13/21 19:30 Sodium Chloride 0.9% 10 Ml Flush Syringe IV PRN PRN LINE FLUSH Zinc Sulfate 220 mg 03/14/21 22:00 04/07/21 21:41 Zinc Sulfate 220 Mg Cap PO 220 mg BID INESSA Administration
[2021-04-08] MEDS: NORepinephrine/NS 8 MG-250 ML 8 MG/250 ML INFUS..BTL IV SCH ×3 (00:30→20:15)
[2021-04-08] MEDS: fentaNYL DRIP Premix 2,000 MCG/100 ML BAG IV SCH ×7 (00:30→22:13)
[2021-04-08] MEDS: IPRATROPIUM/ALBUTEROL SULFATE 3 ML AMPUL.NEB IH SCH ×4 (01:53→19:58)
[2021-04-08] MEDS: AZTREONAM/NS 1 GM/50 ML 1 GM/50 ML VIAL IV SCH (04:01)
[2021-04-08] MEDS: MIDAZOLAM 100 MG in SODIUM CHLORIDE 0.9% 80 ML IV SCH ×2 (04:03→23:33)
--- NOTE | 2021-04-08 04:03 | XRay Report ---
XR chest 1V ap INDICATION / CLINICAL INFORMATION: resp failure. COMPARISON: 05/04/2021 FINDINGS: SUPPORT DEVICES: Unchanged. HEART /PULMONARY VASCULATURE: Unchanged. LUNGS / PLEURA: Worsening bilateral pulmonary airspace disease. No pneumothorax. IMPRESSION: 1. Worsening airspace disease. Signer Name: Xavi Coker MD Signed: 04/08/2021 3:58 AM Workstation Name: [id number]
[2021-04-08] MEDS: VASOPRESSIN 20 UNIT in SODIUM CHLORIDE 0.9% 100 ML IV SCH (04:06)
[2021-04-08] MEDS: ACETAMINOPHEN 325 MG/10.15 ML ORAL LIQD UNIT DOSE FEEDTUBE PRN ×2 (04:09→23:15)
[2021-04-08 05:25] LABS: Hematocrit 22.1 % (30.3-42.9); Hemoglobin 6.9 gm/dl (10.1-14.3); Mean Corpuscular HGB Conc 31 % (30-34); Mean Corpuscular Volume 88 fl (79-97); Platelet Count 202 K/mm3 (140-440); Red Blood Count 2.51 M/mm3 (3.65-5.03); Red Cell Distribution Width 18.4 % (13.2-15.2)
[2021-04-08] MEDS: methylPREDNISolone Sod Succinate 125 MG/2 ML INJ IV SCH ×3 (05:51→21:25)
[2021-04-08 05:52] LABS: C-Reactive Protein 26.1 mg/dL (0.00-1.30); Calcium 8.1 mg/dL (8.4-10.2)
[2021-04-08] MEDS: INSULIN LISPRO 100 UNIT/ML SUB-Q SCH ×4 (06:29→18:31)
[2021-04-08] MEDS: CALCIUM ACETATE 667 MG CAP FEEDTUBE SCH ×3 (08:45→20:15)
[2021-04-08] MEDS: SENNOSIDES/DOCUSATE SODIUM 8.6/50 MG TAB FEEDTUBE SCH ×2 (09:11→21:25)
[2021-04-08] MEDS: QUEtiapine 100 MG TAB PO SCH ×2 (09:11→21:25)
[2021-04-08] MEDS: ASCORBIC ACID 500 MG TAB PO SCH ×2 (09:11→21:25)
[2021-04-08] MEDS: ZINC SULFATE 220 MG CAP PO SCH ×2 (09:11→21:25)
[2021-04-08] MEDS: FAMOTIDINE 10 MG TAB PO SCH ×2 (09:11→21:25)
[2021-04-08] MEDS: APIXABAN 2.5 MG TAB PO SCH ×2 (09:12→21:25)
--- NOTE | 2021-04-08 09:13 | Progress Note ---
Assessment and Plan Impression/Plan: #Acute kidney injury: dialysis dependent - s/p HD on 04/07, minimal uf due to low bp, HR of 1L, did tolerate - no HD/UF today, plan for tomorrow if clinically stable - daily lytes - Assess daily for needs for additional sessions as hemodynamics - Strict input and output - Avoid nephrotoxins - Renally dose medications - Keep MAP > 65 #Hyperkalemia: stable today at 5.5, HD tomorrow #Respiratory failure Covid 19 infection currently intubated UF as tolerated with HD, limited by hemodynamic instability #Hyperphosphatemia to be monitored Dialysis has been initiated #Hyponatremia: stable #Anemia--Hematology plans noted, plasma exchange noted #Overall prognosis remains poor, palliative care appropriate Subjective Date of service: 04/08/21 Principal diagnosis: Ac hypoxemic resp failure; AE-Asthma; SAI; Crohn's; COVID- 19; Pneumonia Interval history: Remains intubated, FiO2 60%, on 2 pressors. HR in 100s this AM. Did get HD later yesterday and tolerated 1L UF per dialysis nurse Objective - Exam Narrative Exam: General appearance: Intubated and sedated, obese Head: NC/AT Neck: Absent: masses or JVD, cervical LAD Respiratory: coarse mechanical sounds Heart: Present: S1 & S2, mildly tachycardic Extremities: pulses intact, pulses symmetrical; 3+ edema Peripheral Pulses: within normal limits General gastrointestinal: soft, non-tender Integumentary: dry Neurologic: sedated - Vital Signs Vital signs: Vital Signs - 12hr 04/07/21 04/07/21 04/07/21 21:16 21:30 21:40 Temperature Pulse Rate 126 H 126 H Pulse Rate [ Anterior Bilateral Throughout] Pulse Rate [ From Monitor] Pulse Rate [ Throughout] Respiratory 26 H 31 H Rate Respiratory Rate [Anterior Bilateral Throughout] Respiratory Rate [ Throughout] Blood Pressure O2 Sat by Pulse 98 98 97 Oximetry 04/07/21 04/07/21 04/07/21 21:46 22:00 22:10 Temperature Pulse Rate 130 H 130 H 127 H Pulse Rate [ Anterior Bilateral Throughout] Pulse Rate [ From Monitor] Pulse Rate [ Throughout] Respiratory 30 H 29 H 28 H Rate Respiratory Rate [Anterior Bilateral Throughout] Respiratory Rate [ Throughout] Blood Pressure O2 Sat by Pulse 96 97 97 Oximetry 04/07/21 04/07/21 04/07/21 22:16 22:30 22:46 Temperature Pulse Rate 126 H 125 H 126 H Pulse Rate [ Anterior Bilateral Throughout] Pulse Rate [ From Monitor] Pulse Rate [ Throughout] Respiratory 29 H 25 H 24 Rate Respiratory Rate [Anterior Bilateral Throughout] Respiratory Rate [ Throughout] Blood Pressure O2 Sat by Pulse 96 96 93 Oximetry 04/07/21 04/07/21 04/07/21 23:00 23:16 23:30 Temperature Pulse Rate 127 H 129 H 131 H Pulse Rate [ Anterior Bilateral Throughout] Pulse Rate [ From Monitor] Pulse Rate [ Throughout] Respiratory 23 18 25 H Rate Respiratory Rate [Anterior Bilateral Throughout] Respiratory Rate [ Throughout] Blood Pressure O2 Sat by Pulse 96 94 90 Oximetry 04/07/21 04/07/21 04/08/21 23:46 23:56 00:00 Temperature 100 F H Pulse Rate 129 H 127 H 126 H Pulse Rate [ Anterior Bilateral Throughout] Pulse Rate [ From Monitor] Pulse Rate [ Throughout] Respiratory 17 16 Rate Respiratory Rate [Anterior Bilateral Throughout] Respiratory Rate [ Throughout] Blood Pressure 111/61 O2 Sat by Pulse 96 97 96 Oximetry 04/08/21 04/08/21 04/08/21 00:16 00:30 00:46 Temperature Pulse Rate 128 H 128 H 128 H Pulse Rate [ Anterior Bilateral Throughout] Pulse Rate [ From Monitor] Pulse Rate [ Throughout] Respiratory 23 25 H 24 Rate Respiratory Rate [Anterior Bilateral Throughout] Respiratory Rate [ Throughout] Blood Pressure O2 Sat by Pulse 95 95 92 Oximetry 04/08/21 04/08/21 04/08/21 01:00 01:16 01:30 Temperature Pulse Rate 130 H 127 H 126 H Pulse Rate [ Anterior Bilateral Throughout] Pulse Rate [ From Monitor] Pulse Rate [ Throughout] Respiratory 22 22 22 Rate Respiratory Rate [Anterior Bilateral Throughout] Respiratory Rate [ Throughout] Blood Pressure O2 Sat by Pulse 90 81 L 89 Oximetry 04/08/21 04/08/21 04/08/21 01:46 01:53 02:00 Temperature Pulse Rate 124 H 121 H Pulse Rate [ Anterior Bilateral Throughout] Pulse Rate [ From Monitor] Pulse Rate [ 123 H Throughout] Respiratory 24 18 Rate Respiratory Rate [Anterior Bilateral Throughout] Respiratory 34 H Rate [ Throughout] Blood Pressure O2 Sat by Pulse 96 100 Oximetry 04/08/21 04/08/21 04/08/21 02:16 02:30 02:46 Temperature Pulse Rate 126 H 128 H 129 H Pulse Rate [ Anterior Bilateral Throughout] Pulse Rate [ From Monitor] Pulse Rate [ Throughout] Respiratory 33 H 31 H 24 Rate Respiratory Rate [Anterior Bilateral Throughout] Respiratory Rate [ Throughout] Blood Pressure O2 Sat by Pulse 98 97 96 Oximetry 04/08/21 04/08/21 04/08/21 03:00 03:16 03:30 Temperature Pulse Rate 132 H 130 H 130 H Pulse Rate [ Anterior Bilateral Throughout] Pulse Rate [ From Monitor] Pulse Rate [ Throughout] Respiratory 26 H 25 H 31 H Rate Respiratory Rate [Anterior Bilateral Throughout] Respiratory Rate [ Throughout] Blood Pressure O2 Sat by Pulse 94 88 96 Oximetry 04/08/21 04/08/21 04/08/21 03:46 04:00 04:16 Temperature 101.5 F H Pulse Rate 126 H 126 H 129 H Pulse Rate [ Anterior Bilateral Throughout] Pulse Rate [ From Monitor] Pulse Rate [ Throughout] Respiratory 25 H 24 40 H Rate Respiratory Rate [Anterior Bilateral Throughout] Respiratory Rate [ Throughout] Blood Pressure O2 Sat by Pulse 99 99 97 Oximetry 04/08/21 04/08/21 04/08/21 04:30 04:45 04:46 Temperature Pulse Rate 131 H 131 H 131 H Pulse Rate [ Anterior Bilateral Throughout] Pulse Rate [ From Monitor] Pulse Rate [ Throughout] Respiratory 16 16 Rate Respiratory Rate [Anterior Bilateral Throughout] Respiratory Rate [ Throughout] Blood Pressure 117/59 O2 Sat by Pulse 97 97 98 Oximetry 04/08/21 04/08/21 04/08/21 05:00 05:16 05:30 Temperature Pulse Rate 130 H 129 H 129 H Pulse Rate [ Anterior Bilateral Throughout] Pulse Rate [ From Monitor] Pulse Rate [ Throughout] Respiratory 30 H 29 H 27 H Rate Respiratory Rate [Anterior Bilateral Throughout] Respiratory Rate [ Throughout] Blood Pressure O2 Sat by Pulse 98 98 97 Oximetry 04/08/21 04/08/21 04/08/21 05:46 06:00 06:16 Temperature Pulse Rate 129 H 126 H 127 H Pulse Rate [ Anterior Bilateral Throughout] Pulse Rate [ From Monitor] Pulse Rate [ Throughout] Respiratory 23 17 19 Rate Respiratory Rate [Anterior Bilateral Throughout] Respiratory Rate [ Throughout] Blood Pressure O2 Sat by Pulse 97 96 95 Oximetry 04/08/21 04/08/21 04/08/21 06:30 06:46 07:00 Temperature Pulse Rate 127 H 120 H 121 H Pulse Rate [ Anterior Bilateral Throughout] Pulse Rate [ From Monitor] Pulse Rate [ Throughout] Respiratory 21 18 17 Rate Respiratory Rate [Anterior Bilateral Throughout] Respiratory Rate [ Throughout] Blood Pressure O2 Sat by Pulse 93 98 97 Oximetry 04/08/21 04/08/21 04/08/21 07:16 07:20 07:30 Temperature 101.5 F H Pulse Rate 122 H 123 H Pulse Rate [ Anterior Bilateral Throughout] Pulse Rate [ From Monitor] Pulse Rate [ Throughout] Respiratory 18 16 Rate Respiratory Rate [Anterior Bilateral Throughout] Respiratory Rate [ Throughout] Blood Pressure O2 Sat by Pulse 97 97 Oximetry 04/08/21 04/08/21 04/08/21 07:46 07:50 08:44 Temperature Pulse Rate 123 H 122 H Pulse Rate [ 121 H Anterior Bilateral Throughout] Pulse Rate [ 121 H From Monitor] Pulse Rate [ Throughout] Respiratory 16 Rate Respiratory 31 H Rate [Anterior Bilateral Throughout] Respiratory Rate [ Throughout] Blood Pressure 99/56 O2 Sat by Pulse 96 96 96 Oximetry - Lab 04/08/21 04:40 04/08/21 04:00 Most recent lab results ABG pH 7.209 (7.320-7.450) L 04/07/21 21:30 ABG pCO2 48.4 mm Hg 04/05/21 21:40 ABG pO2 65.6 mm Hg (80.0-90.0) L 04/05/21 21:40 ABG HCO3 24.7 mmol/L (20.0-26.0) 04/05/21 21:40 ABG O2 Saturation 95.6 (0-100) 04/07/21 21:30 Calcium 8.1 mg/dL (8.4-10.2) L 04/08/21 04:00 Phosphorus 9.30 mg/dL (2.5-4.5) H 04/08/21 04:00 Magnesium 2.00 mg/dL (1.7-2.3) 04/08/21 04:00 Urine Creatinine 40.1 mg/dL (0.1-20.0) H 03/14/21 17:50 Urine Sodium 124 mmol/L 03/14/21 17:50 Medications & Allergies - Medications Allergies/Adverse Reactions: Allergies oxycodone HCl [From Percocet] Allergy (Severe, Verified 03/30/21 14:01) Swelling cefepime Allergy (Verified 04/06/21 13:38) Rash hydrocodone bitartrate [From Vicodin] Allergy (Verified 03/31/21 08:20) Swelling ALLERGY TO TYLENOL VS OXYCODONE ACTIVE ORDER REMOVED FROM [facility] SINCE UNABLE TO CONFIRM WITH FAMILY Home Medications: Home Medications Medication Instructions Recorded Confirmed Last Taken Type Chlorhexidine Mouthwash [Peridex] 15 ml MM BID #1 bottle 10/11/20 03/13/21 Unknown Rx Clindamycin [Clindamycin CAP] 300 mg PO Q8H #21 cap 10/11/20 03/13/21 Unknown Rx Naproxen 500 mg PO Q12H PRN #12 tablet 10/11/20 03/13/21 Unknown Rx Butalb/Acetamin/Caff 50-325-40 1 - 2 tab PO Q6HR PRN #15 tab 12/05/20 03/13/21 Unknown Rx [Fioricet 50-325-40] Famotidine [Pepcid] 20 mg PO BID #30 tablet 12/05/20 03/13/21 Unknown Rx Ketorolac [Toradol] 10 mg PO Q8H PRN #20 tablet 12/05/20 03/13/21 Unknown Rx Ondansetron [Zofran Odt] 4 mg PO Q6HR PRN #20 tab.rapdis 12/05/20 03/13/21 Unknown Rx Albuterol Sulfate [Proair 90 mcg IH Q4HR PRN #2 [email or web address] 01/01/21 03/13/21 Unknown Rx Respiclick] Mupirocin [Bactroban 2% OINT] 1 applic TP BID 7 Days #1 tube 01/01/21 03/13/21 Unknown Rx Triamcinolone Aceton 0.1% (Nf) 1 applic TP BID 14 Days #1 tube 01/01/21 03/13/21 Unknown Rx [Kenalog (NF)] predniSONE [Deltasone] 40 mg PO QDAY #8 tab 01/01/21 03/13/21 Unknown Rx Active Medications: Generic Name Dose Route Start Last Admin Trade Name Freq PRN Reason Stop Dose Admin Acetaminophen 650 mg 03/31/21 12:41 04/08/21 04:09 Acetaminophen 325 Mg/10.15 Ml Oral Liqd Unit Dose FEEDTUBE 650 mg Q6H PRN Administration TEMP >/=100.4 Albumin Human 25 gm 04/01/21 08:19 04/01/21 16:23 Albumin Human 25% (25 Gm/100 Ml) Inj IV 25 gm KARLOS PRN Administration Hypotension Albuterol 2.5 mg 03/19/21 00:53 Albuterol 2.5 Mg/3 Ml Nebu IH Q4HRT PRN Shortness Of Breath Albuterol/Ipratropium 1 ampul 03/19/21 08:00 04/08/21 07:50 Ipratropium/Albuterol Sulfate 3 Ml Ampul.Neb IH 1 ampul Q6HRT INESSA Administration Lipase/Protease/Amylase 1 each 03/15/21 11:42 Lipase 10,500/Protease 25,000/Amylase 43,750 (Units) Dr White FEEDTUBE PRN PRN For Clogged Feeding Tube Apixaban 2.5 mg 03/29/21 13:00 04/07/21 21:41 Apixaban 2.5 Mg Tab PO 2.5 mg Q12HR INESSA Administration Protocol Ascorbic Acid 500 mg 03/14/21 22:00 04/07/21 21:42 Ascorbic Acid 500 Mg Tab PO 500 mg BID INESSA Administration Calcium Acetate 1,334 mg 04/03/21 20:00 04/08/21 08:45 Calcium Acetate 667 Mg Cap FEEDTUBE 1,334 mg TID INESSA Administration Dextrose 50 ml 03/14/21 11:02 03/15/21 11:40 Dextrose 50% In Water (25gm) 50 Ml Syringe IV 50 ml Q30MIN PRN Administration Hypoglycemia Protocol Famotidine 10 mg 03/17/21 22:00 04/07/21 21:41 Famotidine 10 Mg Tab PO 10 mg BID INESSA Administration Fentanyl 50 mcg 03/15/21 10:43 04/05/21 21:32 Fentanyl 100 Mcg/2 Ml Inj IV 50 mcg Q10MIN PRN Administration ANALGESIA Hydromorphone HCl 1 mg 04/06/21 11:32 04/06/21 17:01 Hydromorphone 1 Mg/1 Ml Inj IV 04/13/21 11:31 1 mg Q4H PRN Administration Pain , Severe (7-10) Hydrophilic Ointment 1 applic 03/14/21 17:50 Lip Therapy Vaseline TP Q2HR PRN Dry Lips Fentanyl Citrate 2,000 mcg in 100 mls @ 6.872 mls/hr 03/15/21 11:00 04/08/21 07:26 Fentanyl Drip Premix IV 4 mcg/kg/hr TITR INESSA 27.488 mls/hr Administration Protocol 1 MCG/KG/HR Sodium Chloride 500 mls @ 1 mls/hr 03/16/21 17:19 Nacl 0.9% 500 Ml IV DIRECT PRN ARTERIAL LINE FLUSH NORepinephrine/NS 8 MG-250 ML 8 mg in 250 mls @ 3.75 mls/hr 03/23/21 11:00 04/08/21 00:30 Norepinephrine/Ns 8 Mg-250 Ml (Double Conc) IV 20 mcg/min TITRATE INESSA 37.5 mls/hr Administration Protocol 2 MCG/MIN Midazolam HCl 100 mg/ Sodium 100 mls @ 1 mls/hr 03/30/21 15:00 04/08/21 04:03 Chloride IV 6 mg/hr TITR INESSA 6 mls/hr Administration Protocol 1 MG/HR Vasopressin 20 unit/ Sodium 101 mls @ 9.09 mls/hr 03/30/21 20:00 04/08/21 04:06 Chloride IV 0.03 units/min TITR INESSA 9.09 mls/hr Administration 0.03 UNITS/MIN Phenylephrine HCl 100 mg/ 100 mls @ 3 mls/hr 03/31/21 04:00 04/06/21 07:58 Sodium Chloride IV 0 mcg/min TITR INESSA 0 mls/hr Titration Protocol 50 MCG/MIN Sodium Chloride 100 mls @ 999 mls/hr 04/01/21 08:19 Nacl 0.9% IV KARLOS PRN Hypotension Sodium Bicarbonate 150 meq/ 1,150 mls @ 75 mls/hr 04/02/21 22:00 04/07/21 16:21 Dextrose IV Infused DIRECT INESSA Infusion Aztreonam 1 gm in 50 mls @ 50 mls/hr 04/06/21 15:00 04/08/21 04:01 Azactam/Ns 1 Gm/50 Ml IV 50 mls/hr Q12H INESSA Administration Protocol Levofloxacin/Dextrose 750 mg in 150 mls @ 100 mls/hr 04/06/21 14:30 04/07/21 16:21 Levaquin 750mg/150ml IV Infused Q48H INESSA Infusion Protocol Propofol 1,000 mg in 100 mls @ 4.26 mls/hr 04/07/21 13:00 04/08/21 04:02 Diprivan 10 Mg/Ml IV 15 mcg/kg/min TITR INESSA 12.78 mls/hr Administration Protocol 5 MCG/KG/MIN Insulin Human Lispro 0 unit 03/14/21 12:00 04/08/21 06:29 Insulin Lispro 100 Unit/Ml SUB-Q 2 unit Q6HR INESSA Administration Protocol Lorazepam 1 mg 03/13/21 19:40 03/30/21 19:58 Lorazepam 2 Mg/Ml Vial IV 1 mg Q4H PRN Administration Anxiety Methylprednisolone Sodium Succinate 40 mg 04/05/21 14:00 04/08/21 05:51 Methylprednisolone Sod Succinate 125 Mg/2 Ml Inj IV 40 mg Q8HR INESSA Administration Multi-Ingred Cream/Lotion/Oil/Oint 1 applic 03/14/21 17:50 04/02/21 14:31 Mineral Oil/Petrolatum, White Ophth Oint 3.5 Gm OU 1 applic Q4HR PRN Administration Dry Eye(s) Ondansetron HCl 4 mg 03/13/21 19:30 03/21/21 12:05 Ondansetron 4 Mg/2 Ml Inj IV 4 mg Q8H PRN Administration Nausea And Vomiting Quetiapine Fumarate 300 mg 04/06/21 22:00 04/07/21 21:41 Quetiapine 100 Mg Tab PO 300 mg BID INESSA Administration Senna/Docusate Sodium 1 tab 03/14/21 22:00 04/07/21 21:42 Sennosides/Docusate Sodium 8.6/50 Mg Tab FEEDTUBE 1 tab BID INESSA Administration Simple Syrup 15 ml 03/15/21 11:42 Simple Syrup 15 Ml FEEDTUBE PRN PRN Hypoglycemia Simple Syrup 30 ml 03/15/21 11:42 Simple Syrup 15 Ml FEEDTUBE PRN PRN Hypoglycemia Sodium Bicarbonate 325 mg 03/15/21 11:42 03/21/21 17:21 Sodium Bicarbonate 325 Mg Tab FEEDTUBE 325 mg PRN PRN Administration For Clogged Feeding Tube Sodium Chloride 10 ml 03/13/21 22:00 04/07/21 21:41 Sodium Chloride 0.9% 10 Ml Flush Syringe IV 10 ml BID INESSA Administration Sodium Chloride 10 ml 03/13/21 19:30 Sodium Chloride 0.9% 10 Ml Flush Syringe IV PRN PRN LINE FLUSH Zinc Sulfate 220 mg 03/14/21 22:00 04/07/21 21:41 Zinc Sulfate 220 Mg Cap PO 220 mg BID INESSA Administration
[2021-04-08] MEDS ORDERED: SODIUM CHLORIDE 0.9% 500 ML 500 ML IV ONE (09:26)
[2021-04-08 10:08] LABS: ABG Base Excess -3.6 mmol/L (-2.0-3.0); ABG HCO3 26.2 mmol/L (20.0-26.0); ABG Methemoglobin 0.7 % (0.0-1.5); ABG Oxygen Saturation 90.6 % (95.0-99.0); ABG PCO2 83.8 mm Hg; ABG PO2 75.9 mm Hg (80.0-90.0)
[2021-04-08 10:19] LABS: ABG PH 7.114 pH Units (7.350-7.450)
[2021-04-08] MEDS ORDERED: MEROPENEM/NS 500 MG/50 ML 500 MG/50 ML BAG IV SCH (11:00)
--- NOTE | 2021-04-08 13:27 | Progress Note ---
<ANCELMO GONZALEZ - Last Filed: 04/08/21 13:38> Assessment and Plan Assessment and plan: This is a 31-year-old female with asthma, morbid obesity and Crohn's disease admitted for Acute hypxemic respiratory failure 2/2 COVID PNA requiring ventilatory support and acute renal failure now on HD. Hospital Course to Date: 03/14/21- Patient is s/p intubation from this morning, sedated on propofol and fentanyl RASS -3 to -4. ETT above the clavicles advanced by 2cc. Continue nebs and IV steroids per [facility]. COVID swab pending. Hyperkalemia improved, X1 dose of kayaxalate ordered. Low BP and low urine output this am, fluid bolus challenge, 500cc of NS bolus given. Continue to monitor electrolytes and renal function, repeat BMP this afternoon. 03/15: Patient's renal function noted to be significantly worse today, patient was hyperkalemic and this was medically treated. Patient initiated on hemodi alysis today. infectious disease was consulted today. 03/16: No acute events reported overnight, patient received hemodialysis yesterday. Patient is currently on propofol and fentanyl. 03/17: Patient received hemodialysis today, patient is slightly acidotic on ABG however [facility] is allowing for permissive hypercapnia, tracheal aspirate with Staph aureus and ID is aware. 03/18: Patient is having high residuals today and Reglan was started, patient will receive HD daily per nephrology, correct her change in FiO2 as tolerated. 03/19: HD per nephrology today, antibiotics changed to cefazolin. Patient did not tolerate tube feedings as she had high residuals this morning and they were turned off. Not restarted yet. Updated family at bedside today 03/20: HD today, ddimer noted to be >1000, Tolerating trickle TF. Stat BLE dopplar US 03/21: Patient is not tolerating TF, CXR shows worsening infiltrates, [facility] made changes to vent, TF on hold and started on IVF. 03/22/21- Patient remains intubated and on sedation. Persistent vomiting, TF held overnight, no documented BM, on reglan BR added, Shaun citarte & supp. HD today. Plan to restart TF at 10ml/hr, will reevaluate in the am. Persistent thro mbocytopenia, Hep on hold, HIT panel ordered, PO eliquis initiated. 03/23/21- Patient remains on the vent and sedated on propofol and fentanyl RASS - 2 to -3. Possible SAT today as tolerated. Patient tolerated trickle feeds overnight, plan to advance TF by 10cc Q8 to 12hrs. Continue current BR and co ntinue reglan for now. Slightr worsening in acidosis from this am, d/w [facility] vent setting adjusted, will repeat ABG at 9pm. 03/24/21- Patient is on the vent and sedated, on fentanyl and propfol. Bilateral subconjunctival hemorrhage with periorbital edema noted this am, pupils are round and reactive, will Cipro/Dex [id number]. Worsening of kidney function from today's labs, plan for HD per Nephro. 03/25/21- Patient remains intubated and on sedatin, RASS 0 to -1, no longer on pressors. Sudden drop in H&H this am, bilateral subconjunctival hemorrhage with no sig change, no signs of any active bleeding. Patient appears neurologically intact, following commands, pupils are round and reactive with + gag and cough, moved all extremities. D/w [facility] patient is too unstable for CT at this time. Eliquis D/Devaughn, 1unit of PRBC ordered. Will continue to trend CBC. Plan for another section of HD today 03/26/21- Patient remains on the vent and sedated. VENICE reported from overnight. Plan for HD again today. H&H back up and stable, no AC at this time, SCDs for VTE phro. D/w [facility] patient is still too unstable for CT scan, will continue neuro exam and will continue to monitor H&H. 03/27/21- VENICE overnight. remains on the vent and sedated. Red localized rashes noted in patient upper chest and face, will r/o allergic reaction,CBC with auto diff and urine eosinophils ordered. Plan for HD today per Nephro. 03/28/21- Patient remains on the vent and sedated. Persistent fevers overnight unrelieved with antipyretic, currently on a cooling blanket. Back on pressors for hypotension, patient already on IV abx, last blood cultureX2 and sputum culture from 03/23 were negative. Continue IV abx, will reculture patient, orders placed for B.culture and sputum culture. ID is also on consult. will continue F/u on culture and continue to monitor BMP and CBC. 03/29: Patient restarted on prednisone given splotchy rash, will resume apixaban for VTE prophylaxis and repeat ABG at 9 PM. Remains with leukocytosis, elevated BUN/creatinine, elevated triglycerides and on Levophed 03/30: HD today, rash is still present and started on IV steroids. plt is low today but will continue to monitor. [facility] made changes to vent-> decrease in MV. ABG in the pm and possible punch biopsy tomorrow if rash is not improved. p ropofol changed to versed 03/31: Heme/oncology consulted yesterday, will start patient on plasmapheresis for possible HUS. Cefepime discontinued today as today was the last day. Patient started on pulse dose steroids of 1 g/day for 3 days. Some improvement noted to eyes this morning. Patient was febrile overnight and received ibuprofen overnight. Acetaminophen allergy confirmed with family, allergy is only to oxycodone and hydrocodone but not the acetaminophen component. Confirmed by family patient has no reaction to [id number] Tylenol. Remains on vasopressor support and sedated with fentanyl, propofol and Versed. Vent mode changed to pressure control ventilation. Patient started on Arctic sun for fever control. Mother updated over telephone this a.m. and this p.m. family meeting held with her mother, sister x 2 and brother and with 2 other unknown people over the phone (1 female and one male) and nurse. Family states that patient is likely to an antibiotic possibly penicillins. This information was not available to us before. 04/01: Hyperkalemia medically treated, patient scheduled for dialysis today, plasmapheresis for possible HUS scheduled for today, steroids should be ending tomorrow, generalized rash/discoloration minimally better. Patient still remains on Arctic sun for temperature regulation. Vent changes per [facility]. 04/02: remains on artic sun but water temp noted to be in the 30s today. Completed plasmapheresis x2 and is now on steroid taper however minimal change noted to rash/discoloration. Eyes are more clear today but remain red under lids (tops of eye). Acidosis noted on ABG. Hyperkalemia and hyperphosphatemeia persists. Sedation increased for RR in to the 40s-50s and vasopressors being titrated as tolerated. 04/04: Patient receiving 1 unit PRBC per heme's recommendation, increased respiratory effort noted, patient is acidotic on ABG and given 1 amp of bicarb in addition to bicarb drip, sedation increased for vent synchrony. No HD per nephrology given tachycardia. Seroquel started. 04/05: Patient on the vent and sedated, still on 3 pressors. Patient to wean off propofol gtt, seroquel increased. Patient afebrile overnight, however artic sun is still in place. Will attempt to take off the cooling blanket today, will continue to assess for fever curve. Continue current IV Abx therapy per ID. Plan for HD today per Nephro. Patient's family at the bedside, thoroughly discussed patient's condition and overall poor prognosis. All questions and concerns were addressed. Team will continue to f/u with family with further updates. 04/06: Patient remains sedated and on the vent, still on fent and versed, propofol was weaned off. Low Hbg this am, 2 units of PRBCs ordered. Patient febrile overnight, patient completed IV abx course, leukocytosis downtrending. c/f for possible drug fever vs DVT, BLE doppler reordered to R/O DVT. Patient remains on high dose pressors, wean pressors as tolerated for MAP of 65. 04/07: Patient appears to be in distress thi am, tachypneic and tachycardic, with increased work of breathing. Propofol stopped this am. IV push versed given and versed gtt was increased to max. D/w CCM plan to possibly restart propofol since patient is not tolerating sedation wean. Patient remains febrile throug hout, pancultured yesterday by ID and IV abx was restarted. Overall poor prognosis at this time. Patient's mother and siblings at the bedside were update on patient's status. Plan for possible family meeting with the care team Monday. 04/08: Patient with worsening CXR this am, increased of vent setting overnight, respiratory acidosis from this am ABG. Patient remains febrile, IV ABx switched to Merrem for VAP coverage, ID is following. Patient remains on sedation and on pressors. Low hemoglobin this am, 1unit of PRBCs ordered. Hyperkalemia noted, per Nephro it is stable no intervention at this time plan for HD tomorrow. Spoke with patient's mom, meeting postponed for possibly next week, case management to arrange. Hospitalist also called and updated patient's mother. Team will continue to follow up. Assessment and Plan #Neuro: Sedated - Intubated and sedated on fentanyl and versed, RASS -5 - Seroquel increased - Plan to wean off propofol, RASS goal of 0 to -3 - PRN EKG for QTC monitoring - Daily SAT and SBT per [facility] - Avoid benzodiazepine to reduce the possibility of delirium - Prn analgesia for CPOT greater than 3 - Maintenance of sleep-wake cycle #CV: Tachycardia, s/p hypertension now with hypotension - Remains ST on the monitor - Remains on high dose pressors - Vasopressor support with levophed, vasopressin - Continue blood pressure monitor per protocol - Maintain MAP above 65 - Continue AC- Eliquis and SCDs for VTE proph #Respiratory: Acute hypoxic respiratory failure #asthma exacerbation #COVID-19 pneumonia/ARDS, #RUL PNA #Bronchospasm (resolved) - ETT on 03/14 - Vent setting: AC/PC- 60%,8,30,max PS60 - AM ABG noted - This am CXR with worsen infiltrated - CCM consulted, appreciate recommendations - Continue IV Steroids and Nebs - Plan to taper steroids - VAP bundle addressed - Aspiration precaution HOB above 30 - Daily SBT and SAT trials as tolerated - Daily ABG and CXR per [facility] - Continue SPO2 monitoring for SPO2 goal above 92% #GI: transaminitis #h/o MO and Crohn's disease -Nutrition consulted, appreciate recommendations -Tube feeding: Nepro at goal -Free water decreased 60 mL every 4 hours -Continue BR: Senokot -Continue PPI -BMS in place #: Acute kidney injury likely secondary to ATN #hyponatremia - Initial Scr was wnl - Scr as high as 10.8, 5.1 this am - Patient is now anuric - Nephrology consulted, appreciate recommendations - HD initiated 03/15 - Plan for DH today, possible 1L out is patient tolerate it - Daily weights - Strict intake and output - Avoid nephrotoxic medications; Renally dose medications - Continue IVF for now - Monitor and replace electrolytes as needed #ID: COVID-19 pneumonia #Leukocytosis - 03/14 COVID-19 PCR (+); - 03/14 tracheal aspirate with Staph aureus; 04/10 COVID PCR (-) - B.cultures are negative - WBCs back up, probably reactive; 26.7 this am - artic sun D/C, patient febrile overnight TMAX 101.5 - Patient completed IV Abx course - Patient recultured on 04/07 - IV abx restarted by ID - Patient received X1 dose of redemsevir, was D/C due to worsen renal function - S/p X1 dose actemra - Trend COVID-19 inflammatory markers - Isolation/droplet precautions - On Vitamin C/vitamin D/zinc - Continue to F/u on culture data - Daily CBC monitor -Infectious disease consulted, appreciate recommendations #Heme: Anemia #?HUS vs drug reaction #Conjunctival hemorrhage- resolved - s/p plasmapheresis x2 (04/01-04/02) - Hbg 6.9 this am, 2units of PRBCs ordered -Trend CBC -Transfuse hemoglobin less than 7 - Continue Eliquis, restarted on 03/29 - SCDs to bilateral lower extremity while in bed - 03/23 BLE duplex US shows no DVT - BLE doppler reordered - HIT negative #Endo: Hyperglycemia - Hemoglobin A1c 6.3 - SSI Q6hrs - Avoid hypoglycemia - While critically ill target blood glucose of 140-180 The high probability of a clinically significant, sudden or life threatening deterioration of the [multiple] system(s) required my full and direct attention, intervention and personal management. The aggregate critical care time was [60] minutes. This time is in addition to time spent performing reported procedures but includes the following: [x] Data Review and interpretation [x] Patient assessment and monitoring of vital signs [x] Documentation [x] Medication orders and management Disposition Plan: ICU Total Time Spent with Patient (Minutes): 60 History Interval history: Patient is seen and examined at the bedside. Patient remains on the vent and on sedation. Remains on high dose pressors, low SPO2 overnight, vent setting increased. Hospitalist Physical - Constitutional Vitals: Temp Pulse Resp BP Pulse Ox 101.8 F H 128 H 29 H 86/53 88 04/08/21 08:00 04/08/21 12:00 04/08/21 12:00 04/08/21 11:00 04/08/21 12:00 General appearance: Present: no acute distress, well-nourished, obese, other (Intubated and sedated) - EENT Eyes: Present: PERRL - Respiratory Respiratory effort: labored Respiratory: bilateral: rhonchi, wheezing - Cardiovascular Rhythm: regular Heart Sounds: Present: S1 & S2 - Extremities Extremities: no ischemia, pulses intact, pulses symmetrical Extremity abnormal: edema - Peripheral Assessment Generalized Edema Type: Pitting Edema Degree: 3+ Capillary Refill: < 3 seconds Skin Temperature: Warm Peripheral Pulses: within normal limits - Abdominal General gastrointestinal: soft, non-tender, hypoactive bowel sounds - Integumentary Integumentary: Present: warm, dry, erythema - Psychiatric Psychiatric: other (Intubated and sedated) - Neurologic Neurologic: other (Intubated and sedated) - Allied Health Allied health notes reviewed: nursing Results - Labs CBC & Chem 7: 04/08/21 04:40 04/08/21 04:00 Labs: Laboratory Last Values WBC 23.7 K/mm3 (4.5-11.0) H 04/08/21 04:40 RBC 2.51 M/mm3 (3.65-5.03) L 04/08/21 04:40 Hgb 6.9 gm/dl (10.1-14.3) L 04/08/21 04:40 Hct 22.1 % (30.3-42.9) L 04/08/21 04:40 MCV 88 fl (79-97) 04/08/21 04:40 MCH 27 pg (28-32) L 04/08/21 04:40 MCHC 31 % (30-34) 04/08/21 04:40 RDW 18.4 % (13.2-15.2) H 04/08/21 04:40 Plt Count 202 K/mm3 (140-440) 04/08/21 04:40 Lymph % (Auto) 10.7 % (13.4-35.0) L 03/28/21 09:37 Cavalier % (Auto) 5.2 % (0.0-7.3) 03/28/21 09:37 Eos % (Auto) Class 1 Owner Operator 04/07/21 03:50 Baso % (Auto) 0.2 % (0.0-1.8) 03/28/21 09:37 Lymph # (Auto) 1.7 K/mm3 (1.2-5.4) 03/28/21 09:37 Cavalier # (Auto) 0.9 K/mm3 (0.0-0.8) H 03/28/21 09:37 Eos # (Auto) 0.6 K/mm3 (0.0-0.4) H 03/28/21 09:37 Baso # (Auto) 0.0 K/mm3 (0.0-0.1) 03/28/21 09:37 Add Manual Diff Complete 04/07/21 03:50 Total Counted 100 04/07/21 03:50 Seg Neutrophils % 80.0 % (40.0-70.0) H 03/28/21 09:37 Seg Neuts % (Manual) 67.0 % (40.0-70.0) 04/07/21 03:50 Lymphocytes % (Manual) 10.0 % (13.4-35.0) L 04/07/21 03:50 Monocytes % (Manual) 4.0 % (0.0-7.3) 04/07/21 03:50 Eosinophils % (Manual) 19.0 % (0.0-4.3) H 04/07/21 03:50 Basophils % (Manual) 2.0 % (0.0-1.8) H 04/03/21 04:30 Nucleated RBC % 2.0 % (0.0-0.9) H 04/07/21 03:50 Seg Neutrophils # 13.0 K/mm3 (1.8-7.7) H 03/28/21 09:37 Seg Neutrophils # Man 17.9 K/mm3 (1.8-7.7) H 04/07/21 03:50 Band Neutrophils # 0.0 K/mm3 04/07/21 03:50 Lymphocytes # (Manual) 2.7 K/mm3 (1.2-5.4) 04/07/21 03:50 Abs React Lymphs (Man) 0.0 K/mm3 04/07/21 03:50 Monocytes # (Manual) 1.1 K/mm3 (0.0-0.8) H 04/07/21 03:50 Eosinophils # (Manual) 5.1 K/mm3 (0.0-0.4) H 04/07/21 03:50 Basophils # (Manual) 0.0 K/mm3 (0.0-0.1) 04/07/21 03:50 Metamyelocytes # 0.0 K/mm3 04/07/21 03:50 Myelocytes # 0.0 K/mm3 04/07/21 03:50 Promyelocytes # 0.0 K/mm3 04/07/21 03:50 Blast Cells # 0.0 K/mm3 04/07/21 03:50 WBC Morphology Not Reportable 04/07/21 03:50 Hypersegmented Neuts Not Reportable 04/07/21 03:50 Hyposegmented Neuts Not Reportable 04/07/21 03:50 Hypogranular Neuts Not Reportable 04/07/21 03:50 Smudge Cells Not Reportable 04/07/21 03:50 Toxic Granulation Not Reportable 04/07/21 03:50 Toxic Vacuolation Not Reportable 04/07/21 03:50 Dohle Bodies Not Reportable 04/07/21 03:50 Pelger-Huet Anomaly Not Reportable 04/07/21 03:50 Bridgette Rods Not Reportable 04/07/21 03:50 Platelet Estimate Consistent w auto 04/07/21 03:50 Clumped Platelets Not Reportable 04/07/21 03:50 Plt Clumps, EDTA Not Reportable 04/07/21 03:50 Large Platelets Not Reportable 04/07/21 03:50 Giant Platelets Not Reportable 04/07/21 03:50 Platelet Satelliting Not Reportable 04/07/21 03:50 Plt Morphology Comment Not Reportable 04/07/21 03:50 RBC Morphology Not Reportable 04/07/21 03:50 Dimorphic RBCs Not Reportable 04/07/21 03:50 Polychromasia Not Reportable 04/07/21 03:50 Hypochromasia Not Reportable 04/07/21 03:50 Poikilocytosis Not Reportable 04/07/21 03:50 Anisocytosis 1+ 04/07/21 03:50 Microcytosis Not Reportable 04/07/21 03:50 Macrocytosis Not Reportable 04/07/21 03:50 Spherocytes Not Reportable 04/07/21 03:50 Pappenheimer Bodies Not Reportable 04/07/21 03:50 Sickle Cells Not Reportable 04/07/21 03:50 Target Cells 1+ 04/07/21 03:50 Tear Drop Cells Not Reportable 04/07/21 03:50 Ovalocytes Not Reportable 04/07/21 03:50 Helmet Cells Not Reportable 04/07/21 03:50 Kebede-Schofield Bodies Not Reportable 04/07/21 03:50 [place] Rings Not Reportable 04/07/21 03:50 Balaji Cells Not Reportable 04/07/21 03:50 Bite Cells Not Reportable 04/07/21 03:50 Crenated Cell Not Reportable 04/07/21 03:50 Elliptocytes Not Reportable 04/07/21 03:50 Acanthocytes (Spur) Not Reportable 04/07/21 03:50 Rouleaux Not Reportable 04/07/21 03:50 Hemoglobin C Crystals Not Reportable 04/07/21 03:50 Schistocytes Not Reportable 04/07/21 03:50 Malaria parasites Not Reportable 04/07/21 03:50 Percent Retic 4.52 % (0.78-2.58) H 03/31/21 09:49 Vaibhav Bodies Not Reportable 04/07/21 03:50 Hem Pathologist Commnt No 04/07/21 03:50 PT 13.9 Sec. (12.2-14.9) 04/04/21 07:55 INR 0.96 (0.87-1.13) 04/04/21 07:55 APTT 28.9 Sec. (24.2-36.6) 04/04/21 07:55 Fibrinogen 455 mg/dl (211-480) 04/07/21 03:50 D-Dimer 2696.79 ng/mlDDU (0-234) H 04/08/21 04:40 Heparin Anti-Xa, Unfract TNR 03/22/21 08:20 ABG pH 7.114 pH Units (7.350-7.450) L* 04/08/21 09:55 POC ABG pCO2 64.8 mmHg (32.0-48.0) H 04/07/21 21:30 ABG pCO2 83.8 mm Hg 04/08/21 09:55 POC ABG pO2 92.1 mmHg (83-108) 04/07/21 21:30 ABG pO2 75.9 mm Hg (80.0-90.0) L 04/08/21 09:55 POC ABG HCO3 25.3 04/07/21 21:30 ABG HCO3 26.2 mmol/L (20.0-26.0) H 04/08/21 09:55 ABG O2 Saturation 90.6 % (95.0-99.0) L 04/08/21 09:55 ABG O2 Content 10.2 (0.0-44) 04/08/21 09:55 POC ABG Base Excess -2.8 04/07/21 21:30 ABG Base Excess -3.6 mmol/L (-2.0-3.0) L 04/08/21 09:55 ABG Hemoglobin 8.2 gm/dl (12.0-16.0) L 04/08/21 09:55 ABG Oxyhemoglobin 93.8 (94-98) L 04/07/21 21:30 ABG Carboxyhemoglobin 2.2 % (0.0-5.0) 04/08/21 09:55 ABG Methemoglobin 0.7 % (0.0-1.5) 04/08/21 09:55 ABG Sodium 128.8 mmol/L (136.0-145.0) L 04/07/21 21:30 ABG Potassium 4.6 mmol/L (3.40-4.50) H 04/07/21 21:30 ABG Chloride 97.0 mmol/L (98-107) L 04/07/21 21:30 ABG Glucose 170 mg/dL (65-95) H 04/07/21 21:30 ABG Lactate Cancelled 04/03/21 20:45 Oxyhemoglobin 88.0 % (95.0-99.0) L 04/08/21 09:55 Carboxyhemoglobin 1.6 (0.5-1.5) H 04/07/21 21:30 FiO2 60 % 04/08/21 09:55 FiO2 % 60.0 04/07/21 21:30 Sodium 133 mmol/L (137-145) L 04/08/21 04:00 Potassium 5.5 mmol/L (3.6-5.0) H 04/08/21 04:00 Chloride 93.5 mmol/L (98-107) L 04/08/21 04:00 Carbon Dioxide 22 mmol/L (22-30) 04/08/21 04:00 Anion Gap 23 mmol/L 04/08/21 04:00 BUN 78 mg/dL (7-17) H 04/08/21 04:00 Creatinine 3.5 mg/dL (0.6-1.2) H 04/08/21 04:00 Estimated GFR 19 ml/min 04/08/21 04:00 BUN/Creatinine Ratio 22 % 04/08/21 04:00 Glucose 171 mg/dL (65-100) H 04/08/21 04:00 POC Glucose 156 mg/dL (70-105) H 04/08/21 11:37 Hemoglobin A1c 6.3 % (4-6) H 03/15/21 05:09 Lactic Acid 0.80 mmol/L (0.7-2.0) 04/07/21 03:50 Calcium 8.1 mg/dL (8.4-10.2) L 04/08/21 04:00 Phosphorus 9.30 mg/dL (2.5-4.5) H 04/08/21 04:00 Magnesium 2.00 mg/dL (1.7-2.3) 04/08/21 04:00 Ferritin 151.6 ng/mL (10.0-200.0) 03/18/21 04:30 Total Bilirubin 0.80 mg/dL (0.1-1.2) 04/07/21 04:00 Bilirubin Cancelled 04/03/21 20:45 AST 38 units/L (5-40) 04/07/21 04:00 ALT 38 units/L (7-56) 04/07/21 04:00 Alkaline Phosphatase 167 units/L (35-129) H 04/07/21 04:00 Lactate Dehydrogenase 394 units/L (91-180) H 04/05/21 05:20 C-Reactive Protein 26.10 mg/dL (0.00-1.30) H 04/08/21 04:00 Total Protein 6.6 g/dL (6.3-8.2) 04/07/21 04:00 Albumin 2.8 g/dL (3.9-5) L 04/07/21 04:00 Albumin/Globulin Ratio 0.7 % 04/07/21 04:00 Triglycerides 487 mg/dL (2-149) H 04/08/21 04:00 Serotonin Release Assay TNR 03/22/21 08:20 Procalcitonin < 0.05 ng/mL (<0.15) 03/13/21 15:40 HCG, Qual Negative (Negative) 03/13/21 13:26 Arterial Blood Glucose 170 mg/dL (65-95) H 04/07/21 21:30 Arterial Blood Ionized Calcium 4.2 mg/dL (4.6-5.3) L 04/07/21 21:30 Urine Color Sweta (Yellow) 04/06/21 Unknown Urine Turbidity Cloudy (Clear) 04/06/21 Unknown Urine pH 5.0 (5.0-7.0) 04/06/21 Unknown Ur Specific [place] 1.020 (1.003-1.030) 04/06/21 Unknown Urine Protein 100 mg/dl mg/dL (Negative) 04/06/21 Unknown Urine Glucose (UA) Neg mg/dL (Negative) 04/06/21 Unknown Urine Ketones Neg mg/dL (Negative) 04/06/21 Unknown Urine Blood Mod (Negative) 04/06/21 Unknown Urine Nitrite Neg (Negative) 04/06/21 Unknown Urine Bilirubin Neg (Negative) 04/06/21 Unknown Urine Urobilinogen < 2.0 mg/dL (<2.0) 04/06/21 Unknown Ur Leukocyte Esterase Neg (Negative) 04/06/21 Unknown Urine WBC (Auto) 148.0 /HPF (0.0-6.0) H 04/06/21 Unknown Urine RBC (Auto) > 182.0 /HPF (0.0-6.0) 04/06/21 Unknown U Epithel Cells (Auto) 102.0 /HPF (0-13.0) H 04/06/21 Unknown Urine Bacteria (Auto) 1+ /HPF (Negative) 04/06/21 Unknown Ur Renal Epithelial Cell 151 /LPF 04/06/21 Unknown Urine Mucus Few /HPF 04/06/21 Unknown Urine Yeast (Budding) 3+ /HPF 04/06/21 Unknown Urine Creatinine 40.1 mg/dL (0.1-20.0) H 03/14/21 17:50 Urine Sodium 124 mmol/L 03/14/21 17:50 Random Vancomycin 20.9 ug/mL (0-40.0) 04/08/21 05:00 Heparin-induced Plt Ab Negative (Negative) 03/22/21 08:20 UF Heparin High Dose TNR 03/22/21 08:20 JUAN UFH Low Dose 0.1 TNR 03/22/21 08:20 JUAN UFH Low Dose 0.5 TNR 03/22/21 08:20 Coronavirus (PCR) Negative (Negative) 04/04/21 09:00 Hepatitis A IgM Ab Non-reactive (NonReactive) 03/15/21 05:09 Hep Bs Antigen Nonreactive (Negative) 03/15/21 05:09 Hep B Core IgM Ab Non-reactive (NonReactive) 03/15/21 05:09 Hepatitis C Antibody Non-reactive (NonReactive) 03/15/21 05:09 Schistocytes Smear None seen 03/31/21 12:11 Blood Type O POSITIVE 04/04/21 09:20 Antibody Screen Negative 04/04/21 09:20 Direct Antiglob Test Negative 03/31/21 23:18 NIKOLE, Poly Interpret Negative 03/31/21 23:18 Crossmatch See Detail 04/04/21 09:20 Microbiology: Microbiology 04/07/21 13:41 Urine,Catheterized - Indwelling Catheter Urine Culture - Preliminary NO GROWTH AFTER 24 HOURS 04/06/21 16:46 Peripheral/Venous Blood Culture - Preliminary NO GROWTH AFTER 24 HOURS 04/06/21 17:00 Peripheral/Venous Blood Culture - Preliminary NO GROWTH AFTER 24 HOURS 04/06/21 14:05 Tracheal Aspirate Sputum Culture - Preliminary Enterococcus Species Bazan/IV: Voiding Method Toilet Active Medications - Current Medications Current Medications: Generic Name Dose Route Start Last Admin Trade Name Freq PRN Reason Stop Dose Admin Acetaminophen 650 mg 03/31/21 12:41 04/08/21 04:09 Acetaminophen 325 Mg/10.15 Ml Oral Liqd Unit Dose FEEDTUBE 650 mg Q6H PRN Administration TEMP >/=100.4 Albumin Human 25 gm 04/01/21 08:19 04/01/21 16:23 Albumin Human 25% (25 Gm/100 Ml) Inj IV 25 gm KARLOS PRN Administration Hypotension Albuterol 2.5 mg 03/19/21 00:53 Albuterol 2.5 Mg/3 Ml Nebu IH Q4HRT PRN Shortness Of Breath Albuterol/Ipratropium 1 ampul 03/19/21 08:00 04/08/21 07:50 Ipratropium/Albuterol Sulfate 3 Ml Ampul.Neb IH 1 ampul Q6HRT INESSA Administration Lipase/Protease/Amylase 1 each 03/15/21 11:42 Lipase 10,500/Protease 25,000/Amylase 43,750 (Units) Dr Cap FEEDTUBE PRN PRN For Clogged Feeding Tube Apixaban 2.5 mg 03/29/21 13:00 04/08/21 09:12 Apixaban 2.5 Mg Tab PO 2.5 mg Q12HR INESSA Administration Protocol Ascorbic Acid 500 mg 03/14/21 22:00 04/08/21 09:11 Ascorbic Acid 500 Mg Tab PO 500 mg BID INESSA Administration Calcium Acetate 1,334 mg 04/03/21 20:00 04/08/21 08:45 Calcium Acetate 667 Mg Cap FEEDTUBE 1,334 mg TID INESSA Administration Dextrose 50 ml 03/14/21 11:02 03/15/21 11:40 Dextrose 50% In Water (25gm) 50 Ml Syringe IV 50 ml Q30MIN PRN Administration Hypoglycemia Protocol Famotidine 10 mg 03/17/21 22:00 04/08/21 09:11 Famotidine 10 Mg Tab PO 10 mg BID INESSA Administration Fentanyl 50 mcg 03/15/21 10:43 04/05/21 21:32 Fentanyl 100 Mcg/2 Ml Inj IV 50 mcg Q10MIN PRN Administration ANALGESIA Hydromorphone HCl 1 mg 04/06/21 11:32 04/06/21 17:01 Hydromorphone 1 Mg/1 Ml Inj IV 04/13/21 11:31 1 mg Q4H PRN Administration Pain , Severe (7-10) Hydrophilic Ointment 1 applic 03/14/21 17:50 Lip Therapy Vaseline TP Q2HR PRN Dry Lips Fentanyl Citrate 2,000 mcg in 100 mls @ 6.872 mls/hr 03/15/21 11:00 04/08/21 11:32 Fentanyl Drip Premix IV 4 mcg/kg/hr TITR INESSA 27.488 mls/hr Administration Protocol 1 MCG/KG/HR Sodium Chloride 500 mls @ 1 mls/hr 03/16/21 17:19 Nacl 0.9% 500 Ml IV DIRECT PRN ARTERIAL LINE FLUSH NORepinephrine/NS 8 MG-250 ML 8 mg in 250 mls @ 3.75 mls/hr 03/23/21 11:00 04/08/21 12:22 Norepinephrine/Ns 8 Mg-250 Ml (Double Conc) IV Infused TITRATE INESSA Titration Protocol 2 MCG/MIN Midazolam HCl 100 mg/ Sodium 100 mls @ 1 mls/hr 03/30/21 15:00 04/08/21 04:03 Chloride IV 6 mg/hr TITR INESSA 6 mls/hr Administration Protocol 1 MG/HR Vasopressin 20 unit/ Sodium 101 mls @ 9.09 mls/hr 03/30/21 20:00 04/08/21 04:06 Chloride IV 0.03 units/min TITR INESSA 9.09 mls/hr Administration 0.03 UNITS/MIN Phenylephrine HCl 100 mg/ 100 mls @ 3 mls/hr 03/31/21 04:00 04/06/21 07:58 Sodium Chloride IV 0 mcg/min TITR INESSA 0 mls/hr Titration Protocol 50 MCG/MIN Sodium Chloride 100 mls @ 999 mls/hr 04/01/21 08:19 Nacl 0.9% IV KARLOS PRN Hypotension Sodium Bicarbonate 150 meq/ 1,150 mls @ 75 mls/hr 04/02/21 22:00 04/07/21 16:21 Dextrose IV Infused DIRECT INESSA Infusion Levofloxacin/Dextrose 750 mg in 150 mls @ 100 mls/hr 04/06/21 14:30 04/07/21 16:21 Levaquin 750mg/150ml IV Infused Q48H INESSA Infusion Protocol Propofol 1,000 mg in 100 mls @ 4.26 mls/hr 04/07/21 13:00 04/08/21 11:36 Diprivan 10 Mg/Ml IV 10 mcg/kg/min TITR INESSA 8.52 mls/hr Administration Protocol 5 MCG/KG/MIN Meropenem 500 mg in 50 mls @ 50 mls/hr 04/08/21 11:00 Merrem/Ns 500 Mg/50 Ml IV Q12H INESSA Insulin Human Lispro 0 unit 03/14/21 12:00 04/08/21 11:41 Insulin Lispro 100 Unit/Ml SUB-Q 2 unit Q6HR INESSA Administration Protocol Lorazepam 1 mg 03/13/21 19:40 03/30/21 19:58 Lorazepam 2 Mg/Ml Vial IV 1 mg Q4H PRN Administration Anxiety Methylprednisolone Sodium Succinate 40 mg 04/05/21 14:00 04/08/21 05:51 Methylprednisolone Sod Succinate 125 Mg/2 Ml Inj IV 40 mg Q8HR INESSA Administration Multi-Ingred Cream/Lotion/Oil/Oint 1 applic 03/14/21 17:50 04/02/21 14:31 Mineral Oil/Petrolatum, White Ophth Oint 3.5 Gm OU 1 applic Q4HR PRN Administration Dry Eye(s) Ondansetron HCl 4 mg 03/13/21 19:30 03/21/21 12:05 Ondansetron 4 Mg/2 Ml Inj IV 4 mg Q8H PRN Administration Nausea And Vomiting Quetiapine Fumarate 300 mg 04/06/21 22:00 04/08/21 09:11 Quetiapine 100 Mg Tab PO 300 mg BID INESSA Administration Senna/Docusate Sodium 1 tab 03/14/21 22:00 04/08/21 09:11 Sennosides/Docusate Sodium 8.6/50 Mg Tab FEEDTUBE 1 tab BID INESSA Administration Simple Syrup 15 ml 03/15/21 11:42 Simple Syrup 15 Ml FEEDTUBE PRN PRN Hypoglycemia Simple Syrup 30 ml 03/15/21 11:42 Simple Syrup 15 Ml FEEDTUBE PRN PRN Hypoglycemia Sodium Bicarbonate 325 mg 03/15/21 11:42 03/21/21 17:21 Sodium Bicarbonate 325 Mg Tab FEEDTUBE 325 mg PRN PRN Administration For Clogged Feeding Tube Sodium Chloride 10 ml 03/13/21 22:00 04/08/21 09:15 Sodium Chloride 0.9% 10 Ml Flush Syringe IV 10 ml BID INESSA Administration Sodium Chloride 10 ml 03/13/21 19:30 Sodium Chloride 0.9% 10 Ml Flush Syringe IV PRN PRN LINE FLUSH Zinc Sulfate 220 mg 03/14/21 22:00 04/08/21 09:11 Zinc Sulfate 220 Mg Cap PO 220 mg BID INESSA Administration Nutrition/Malnutrition Assess - Dietary Evaluation Nutrition/Malnutrition Findings: Nutrition Notes Start: 03/15/21 11:06 Freq: Status: Active Protocol: Document 04/02/21 15:08 REJI (Rec: 04/02/21 15:19 REJI [id number]) Nutrition Notes Initial or Follow up Reassessment Current Diagnosis Acute Kidney Injury, Hypertension,Respiratory Failure Other Pertinent Diagnosis COVID-19 pneu, periorbital edema Current Diet TF - Nepro at 44ml/hr Labs/Tests Na 132 K 5.3 BUN 80 Cr 6.8 BG 174 Triglycerides 579 Pertinent Medications Propofol at 32.985ml/hr ( provides 871 kcal), Human Albumin, Solumedrol, Levophed gtt, Phenylephrine gtt, Vasopressin gtt, Kionex Height 5 ft 5 in Weight 137.438 kg [place] Body Weight (kg) 56.81 BMI 50.4 Weight Status Morbidly Obese Subjective/Other Information Spoke with pt's RN via phone at 15:06. Pt tolerating TF at goal rate, despite being on three pressors. Per RN, been able to decrease pressor concentration. Pt been spiking a fever for past few days; Artic sun blanket in place to lower body temperature. Pt remains on vent support. Percent of energy/protein needs met: 99% energy 73% pro Burn Absent Trauma Absent Minimum of two criteria No #1 Nutrition Diagnosis Swallowing difficulty Diagnosis Progress(for reassessment Continues documentation) Is patient on ventilator? Yes Is Patient Ambulatory and/or Out of Bed No REE-([facility]-confined to bed) 2515.536 Kcal/Kg value to use for calculation 14 Approximate Energy Requirements Using 1924 kcal/Kg Calculation Used for Recommendations Kcal/kg Additional Notes Pro needs >1.2g/kg adjBW: > 117g/day Fluid needs 1-1.5L/day Nutrition Intervention Nutrition Support: Continue Nepro at 44ml/hr. Provide 120ml water flush q4h Kcal 1,901 Protein (gm) 86 Carbohydrates (gm) 170 Fat (gm) 101 Fluid (mL) 768 Fiber (gm) 13 Goal #1 TF tolerance Goal #2 TF to meet at least 75% energy and pro needs Follow-Up By: 04/09/21 Additional Comments F/U: stable TF, vent status, wt, propofol, pressor support, rectal tube <SAURABH ALBRECHT - Last Filed: 04/15/21 07:26> Assessment and Plan Assessment and plan: I saw and evaluated the patient. Discussed with the nurse practitioner and agree with their findings and plan as documented in this note. I saw and evaluated the patient. Discussed with the nurse practitioner and agree with their findings and plan as documented in this note. Hospitalist Physical - Constitutional Vitals: Temp Pulse Resp BP Pulse Ox 99.3 F 117 H 13 106/40 99 04/14/21 14:46 04/14/21 15:12 04/14/21 14:46 04/14/21 15:12 04/14/21 15:12 Results - Labs CBC & Chem 7: 04/15/21 Unknown 04/15/21 Unknown Labs: Laboratory Last Values WBC 11.8 K/mm3 (4.5-11.0) H 04/14/21 04:43 RBC 2.58 M/mm3 (3.65-5.03) L 04/14/21 04:43 Hgb 7.5 gm/dl (10.1-14.3) L 04/14/21 04:43 Hct 23.4 % (30.3-42.9) L 04/14/21 04:43 MCV 91 fl (79-97) 04/14/21 04:43 MCH 29 pg (28-32) 04/14/21 04:43 MCHC 32 % (30-34) 04/14/21 04:43 RDW 17.1 % (13.2-15.2) H 04/14/21 04:43 Plt Count 45 K/mm3 (140-440) L 04/14/21 04:43 Lymph % (Auto) 10.7 % (13.4-35.0) L 03/28/21 09:37 Cavalier % (Auto) 5.2 % (0.0-7.3) 03/28/21 09:37 Eos % (Auto) Class 1 Owner Operator 04/07/21 03:50 Baso % (Auto) 0.2 % (0.0-1.8) 03/28/21 09:37 Lymph # (Auto) 1.7 K/mm3 (1.2-5.4) 03/28/21 09:37 Cavalier # (Auto) 0.9 K/mm3 (0.0-0.8) H 03/28/21 09:37 Eos # (Auto) 0.6 K/mm3 (0.0-0.4) H 03/28/21 09:37 Baso # (Auto) 0.0 K/mm3 (0.0-0.1) 03/28/21 09:37 Add Manual Diff Complete 04/07/21 03:50 Total Counted 100 04/07/21 03:50 Seg Neutrophils % 80.0 % (40.0-70.0) H 03/28/21 09:37 Seg Neuts % (Manual) 67.0 % (40.0-70.0) 04/07/21 03:50 Lymphocytes % (Manual) 10.0 % (13.4-35.0) L 04/07/21 03:50 Monocytes % (Manual) 4.0 % (0.0-7.3) 04/07/21 03:50 Eosinophils % (Manual) 19.0 % (0.0-4.3) H 04/07/21 03:50 Basophils % (Manual) 2.0 % (0.0-1.8) H 04/03/21 04:30 Nucleated RBC % 2.0 % (0.0-0.9) H 04/07/21 03:50 Seg Neutrophils # 13.0 K/mm3 (1.8-7.7) H 03/28/21 09:37 Seg Neutrophils # Man 17.9 K/mm3 (1.8-7.7) H 04/07/21 03:50 Band Neutrophils # 0.0 K/mm3 04/07/21 03:50 Lymphocytes # (Manual) 2.7 K/mm3 (1.2-5.4) 04/07/21 03:50 Abs React Lymphs (Man) 0.0 K/mm3 04/07/21 03:50 Monocytes # (Manual) 1.1 K/mm3 (0.0-0.8) H 04/07/21 03:50 Eosinophils # (Manual) 5.1 K/mm3 (0.0-0.4) H 04/07/21 03:50 Basophils # (Manual) 0.0 K/mm3 (0.0-0.1) 04/07/21 03:50 Metamyelocytes # 0.0 K/mm3 04/07/21 03:50 Myelocytes # 0.0 K/mm3 04/07/21 03:50 Promyelocytes # 0.0 K/mm3 04/07/21 03:50 Blast Cells # 0.0 K/mm3 04/07/21 03:50 WBC Morphology Not Reportable 04/07/21 03:50 Hypersegmented Neuts Not Reportable 04/07/21 03:50 Hyposegmented Neuts Not Reportable 04/07/21 03:50 Hypogranular Neuts Not Reportable 04/07/21 03:50 Smudge Cells Not Reportable 04/07/21 03:50 Toxic Granulation Not Reportable 04/07/21 03:50 Toxic Vacuolation Not Reportable 04/07/21 03:50 Dohle Bodies Not Reportable 04/07/21 03:50 Pelger-Huet Anomaly Not Reportable 04/07/21 03:50 Bridgette Rods Not Reportable 04/07/21 03:50 Platelet Estimate Consistent w auto 04/07/21 03:50 Clumped Platelets Not Reportable 04/07/21 03:50 Plt Clumps, EDTA Not Reportable 04/07/21 03:50 Large Platelets Not Reportable 04/07/21 03:50 Giant Platelets Not Reportable 04/07/21 03:50 Platelet Satelliting Not Reportable 04/07/21 03:50 Plt Morphology Comment Not Reportable 04/07/21 03:50 RBC Morphology Not Reportable 04/07/21 03:50 Dimorphic RBCs Not Reportable 04/07/21 03:50 Polychromasia Not Reportable 04/07/21 03:50 Hypochromasia Not Reportable 04/07/21 03:50 Poikilocytosis Not Reportable 04/07/21 03:50 Anisocytosis 1+ 04/07/21 03:50 Microcytosis Not Reportable 04/07/21 03:50 Macrocytosis Not Reportable 04/07/21 03:50 Spherocytes Not Reportable 04/07/21 03:50 Pappenheimer Bodies Not Reportable 04/07/21 03:50 Sickle Cells Not Reportable 04/07/21 03:50 Target Cells 1+ 04/07/21 03:50 Tear Drop Cells Not Reportable 04/07/21 03:50 Ovalocytes Not Reportable 04/07/21 03:50 Helmet Cells Not Reportable 04/07/21 03:50 Kebede-Schofield Bodies Not Reportable 04/07/21 03:50 [place] Rings Not Reportable 04/07/21 03:50 Balaji Cells Not Reportable 04/07/21 03:50 Bite Cells Not Reportable 04/07/21 03:50 Crenated Cell Not Reportable 04/07/21 03:50 Elliptocytes Not Reportable 04/07/21 03:50 Acanthocytes (Spur) Not Reportable 04/07/21 03:50 Rouleaux Not Reportable 04/07/21 03:50 Hemoglobin C Crystals Not Reportable 04/07/21 03:50 Schistocytes Not Reportable 04/07/21 03:50 Malaria parasites Not Reportable 04/07/21 03:50 Percent Retic 4.52 % (0.78-2.58) H 03/31/21 09:49 Vaibhav Bodies Not Reportable 04/07/21 03:50 Hem Pathologist Commnt No 04/07/21 03:50 PT 16.0 Sec. (12.2-14.9) H 04/13/21 04:44 INR 1.16 (0.87-1.13) H 04/13/21 04:44 APTT 28.9 Sec. (24.2-36.6) 04/04/21 07:55 Fibrinogen 400 mg/dl (211-480) 04/14/21 09:45 D-Dimer 2696.79 ng/mlDDU (0-234) H 04/08/21 04:40 Heparin Anti-Xa, Unfract TNR 03/22/21 08:20 ABG pH 7.354 (7.320-7.450) 04/13/21 21:00 POC ABG pCO2 48.6 mmHg (32.0-48.0) H 04/13/21 21:00 ABG pCO2 68.6 mm Hg 04/13/21 03:52 POC ABG pO2 93.8 mmHg (83-108) 04/13/21 21:00 ABG pO2 98.9 mm Hg (80.0-90.0) H 04/13/21 03:52 POC ABG HCO3 26.5 04/13/21 21:00 ABG HCO3 25.5 mmol/L (20.0-26.0) 04/13/21 03:52 ABG O2 Saturation 97.0 (0-100) 04/13/21 21:00 ABG O2 Content 10.0 (0.0-44) 04/13/21 03:52 POC ABG Base Excess 0.7 04/13/21 21:00 ABG Base Excess -2.9 mmol/L (-2.0-3.0) L 04/13/21 03:52 ABG Hemoglobin 8.3 (12.0-17.5) L 04/13/21 21:00 ABG Oxyhemoglobin 96.3 (94-98) 04/13/21 21:00 ABG Carboxyhemoglobin 1.9 % (0.0-5.0) 04/13/21 03:52 ABG Methemoglobin 0.3 (0.0-1.5) 04/13/21 21:00 ABG Sodium 134.6 mmol/L (136.0-145.0) L 04/13/21 21:00 ABG Potassium 4.0 mmol/L (3.40-4.50) 04/13/21 21:00 ABG Chloride 101.0 mmol/L (98-107) 04/13/21 21:00 ABG Glucose 243 mg/dL (65-95) H 04/13/21 21:00 ABG Lactate Cancelled 04/03/21 20:45 Oxyhemoglobin 94.3 % (95.0-99.0) L 04/13/21 03:52 Carboxyhemoglobin 0.4 (0.5-1.5) L 04/13/21 21:00 FiO2 65 % 04/13/21 03:52 FiO2 % 60.0 04/13/21 21:00 Sodium 139 mmol/L (137-145) 04/14/21 04:43 Potassium 4.2 mmol/L (3.6-5.0) 04/14/21 04:43 Chloride 99.9 mmol/L (98-107) 04/14/21 04:43 Carbon Dioxide 24 mmol/L (22-30) 04/14/21 04:43 Anion Gap 19 mmol/L 04/14/21 04:43 BUN 74 mg/dL (7-17) H 04/14/21 04:43 Creatinine 3.1 mg/dL (0.6-1.2) H 04/14/21 04:43 Estimated GFR 21 ml/min 04/14/21 04:43 BUN/Creatinine Ratio 24 % 04/14/21 04:43 Glucose 220 mg/dL (65-100) H 04/14/21 04:43 POC Glucose 160 mg/dL (70-105) H 04/14/21 11:10 Hemoglobin A1c 6.3 % (4-6) H 03/15/21 05:09 Lactic Acid 0.80 mmol/L (0.7-2.0) 04/07/21 03:50 Calcium 8.4 mg/dL (8.4-10.2) 04/14/21 04:43 Phosphorus 6.80 mg/dL (2.5-4.5) H 04/13/21 04:44 Magnesium 2.10 mg/dL (1.7-2.3) 04/13/21 04:44 Ferritin 151.6 ng/mL (10.0-200.0) 03/18/21 04:30 Total Bilirubin 0.80 mg/dL (0.1-1.2) 04/07/21 04:00 Bilirubin Cancelled 04/03/21 20:45 AST 38 units/L (5-40) 04/07/21 04:00 ALT 38 units/L (7-56) 04/07/21 04:00 Alkaline Phosphatase 167 units/L (35-129) H 04/07/21 04:00 Lactate Dehydrogenase 394 units/L (91-180) H 04/05/21 05:20 C-Reactive Protein 26.10 mg/dL (0.00-1.30) H 04/08/21 04:00 Total Protein 6.6 g/dL (6.3-8.2) 04/07/21 04:00 Albumin 2.8 g/dL (3.9-5) L 04/07/21 04:00 Albumin/Globulin Ratio 0.7 % 04/07/21 04:00 Triglycerides 406 mg/dL (2-149) H 04/11/21 04:15 Serotonin Release Assay TNR 03/22/21 08:20 Procalcitonin < 0.05 ng/mL (<0.15) 03/13/21 15:40 HCG, Qual Negative (Negative) 03/13/21 13:26 Arterial Blood Glucose 243 mg/dL (65-95) H 04/13/21 21:00 Arterial Blood Ionized Calcium 4.6 mg/dL (4.6-5.3) 04/13/21 21:00 Urine Color Sweta (Yellow) 04/06/21 Unknown Urine Turbidity Cloudy (Clear) 04/06/21 Unknown Urine pH 5.0 (5.0-7.0) 04/06/21 Unknown Ur Specific [place] 1.020 (1.003-1.030) 04/06/21 Unknown Urine Protein 100 mg/dl mg/dL (Negative) 04/06/21 Unknown Urine Glucose (UA) Neg mg/dL (Negative) 04/06/21 Unknown Urine Ketones Neg mg/dL (Negative) 04/06/21 Unknown Urine Blood Mod (Negative) 04/06/21 Unknown Urine Nitrite Neg (Negative) 04/06/21 Unknown Urine Bilirubin Neg (Negative) 04/06/21 Unknown Urine Urobilinogen < 2.0 mg/dL (<2.0) 04/06/21 Unknown Ur Leukocyte Esterase Neg (Negative) 04/06/21 Unknown Urine WBC (Auto) 148.0 /HPF (0.0-6.0) H 04/06/21 Unknown Urine RBC (Auto) > 182.0 /HPF (0.0-6.0) 04/06/21 Unknown U Epithel Cells (Auto) 102.0 /HPF (0-13.0) H 04/06/21 Unknown Urine Bacteria (Auto) 1+ /HPF (Negative) 04/06/21 Unknown Ur Renal Epithelial Cell 151 /LPF 04/06/21 Unknown Urine Mucus Few /HPF 04/06/21 Unknown Urine Yeast (Budding) 3+ /HPF 04/06/21 Unknown Urine Creatinine 40.1 mg/dL (0.1-20.0) H 03/14/21 17:50 Urine Sodium 124 mmol/L 03/14/21 17:50 Random Vancomycin 13.6 ug/mL (0-40.0) 04/12/21 04:30 KIMBERLEY Screen Negative (Negative) 04/07/21 08:27 Heparin-induced Plt Ab Negative (Negative) 03/22/21 08:20 UF Heparin High Dose TNR 03/22/21 08:20 JUAN UFH Low Dose 0.1 TNR 03/22/21 08:20 JUAN UFH Low Dose 0.5 TNR 03/22/21 08:20 Coronavirus (PCR) Negative (Negative) 04/04/21 09:00 Hepatitis A IgM Ab Non-reactive (NonReactive) 03/15/21 05:09 Hep Bs Antigen Nonreactive (Negative) 03/15/21 05:09 Hep B Core IgM Ab Non-reactive (NonReactive) 03/15/21 05:09 Hepatitis C Antibody Non-reactive (NonReactive) 03/15/21 05:09 Schistocytes Smear None seen 03/31/21 12:11 Blood Type O POSITIVE 04/11/21 13:39 Antibody Screen Negative 04/11/21 13:39 Direct Antiglob Test Negative 03/31/21 23:18 NIKOLE, Poly Interpret Negative 03/31/21 23:18 Crossmatch See Detail 04/11/21 13:39 Microbiology: Microbiology 04/11/21 15:05 Bronchial Washings - Left Upper Lobe Respiratory Culture - Preliminary Enterococcus Species Bazan/IV: Voiding Method Incontinent Active Medications - Current Medications Current Medications: Generic Name Dose Route Start Last Admin Trade Name Freq PRN Reason Stop Dose Admin Acetaminophen 650 mg 03/31/21 12:41 04/13/21 07:55 Acetaminophen 325 Mg/10.15 Ml Oral Liqd Unit Dose FEEDTUBE 650 mg Q6H PRN Administration TEMP >/=100.4 Albumin Human 25 gm 04/01/21 08:19 04/01/21 16:23 Albumin Human 25% (25 Gm/100 Ml) Inj IV 25 gm KARLOS PRN Administration Hypotension Albuterol 2.5 mg 03/19/21 00:53 Albuterol 2.5 Mg/3 Ml Nebu IH Q4HRT PRN Shortness Of Breath Albuterol/Ipratropium 1 ampul 03/19/21 08:00 04/14/21 13:54 Ipratropium/Albuterol Sulfate 3 Ml Ampul.Neb IH Not Given Q6HRT INESSA Lipase/Protease/Amylase 1 each 04/09/21 17:17 Lipase 10,500/Protease 25,000/Amylase 43,750 (Units) Cap FEEDTUBE PRN PRN For Clogged Feeding Tube Ascorbic Acid 500 mg 03/14/21 22:00 04/14/21 09:08 Ascorbic Acid 500 Mg Tab PO 500 mg BID INESSA Administration Calcium Acetate 1,334 mg 04/03/21 20:00 04/14/21 13:43 Calcium Acetate 667 Mg Cap FEEDTUBE 1,334 mg TID INESSA Administration Dextrose 50 ml 03/14/21 11:02 03/15/21 11:40 Dextrose 50% In Water (25gm) 50 Ml Syringe IV 50 ml Q30MIN PRN Administration Hypoglycemia Protocol Diphenhydramine HCl 50 mg 04/13/21 18:00 04/14/21 11:23 Diphenhydramine 50 Mg/Ml Vial IV 04/14/21 18:01 50 mg Q6HR INESSA Administration Famotidine 10 mg 03/17/21 22:00 04/14/21 09:08 Famotidine 10 Mg Tab PO 10 mg BID INESSA Administration Fentanyl 50 mcg 03/15/21 10:43 04/05/21 21:32 Fentanyl 100 Mcg/2 Ml Inj IV 50 mcg Q10MIN PRN Administration ANALGESIA Hydrocortisone Sodium Succinate 100 mg 04/10/21 00:00 04/14/21 15:44 Hydrocortisone Sod Succ 100 Mg/2 Ml Vial IV 100 mg Q8H INESSA Administration Hydrophilic Ointment 1 applic 03/14/21 17:50 Lip Therapy Vaseline TP Q2HR PRN Dry Lips Fentanyl Citrate 2,000 mcg in 100 mls @ 6.872 mls/hr 03/15/21 11:00 04/14/21 15:46 Fentanyl Drip Premix IV 4 mcg/kg/hr TITR INESSA 27.488 mls/hr Administration Protocol 1 MCG/KG/HR Sodium Chloride 500 mls @ 1 mls/hr 03/16/21 17:19 Nacl 0.9% 500 Ml IV DIRECT PRN ARTERIAL LINE FLUSH Midazolam HCl 100 mg/ Sodium 100 mls @ 1 mls/hr 03/30/21 15:00 04/14/21 11:25 Chloride IV 5 mg/hr TITR INESSA 5 mls/hr Administration Protocol 1 MG/HR Vasopressin 20 unit/ Sodium 101 mls @ 9.09 mls/hr 03/30/21 20:00 04/14/21 11:25 Chloride IV 0.03 units/min TITR INESSA 9.09 mls/hr Administration 0.03 UNITS/MIN Phenylephrine HCl 100 mg/ 100 mls @ 3 mls/hr 03/31/21 04:00 04/06/21 07:58 Sodium Chloride IV 0 mcg/min TITR INESSA 0 mls/hr Titration Protocol 50 MCG/MIN Sodium Chloride 100 mls @ 999 mls/hr 04/01/21 08:19 Nacl 0.9% IV KARLOS PRN Hypotension Propofol 1,000 mg in 100 mls @ 4.26 mls/hr 04/07/21 13:00 04/12/21 12:52 Diprivan 10 Mg/Ml IV 0 mcg/kg/min TITR INESSA 0 mls/hr Titration Protocol 5 MCG/KG/MIN Micafungin Sodium 100 mg/ 100 mls @ 100 mls/hr 04/09/21 17:00 04/13/21 22:23 Sodium Chloride IV Not Given Q24H INESSA Protocol Norepinephrine 8 mg/ Sodium 8 mg in 258 mls @ 3.87 mls/hr 04/12/21 04:00 04/14/21 11:50 Chloride IV 10 mcg/min TITRATE INESSA 19.35 mls/hr Titration Protocol 2 MCG/MIN MEROPENEM/NS 1 GRAM/100 ML 1 gram in 100 mls @ 100 mls/hr 04/12/21 22:00 04/13/21 22:16 Merrem/Ns 1 Gram/100 Ml IV 100 mls/hr Q24H INESSA Administration Protocol Sodium Chloride 500 mls @ 0 mls/hr 04/14/21 08:37 Nacl 0.9% 500 Ml IV 04/14/21 23:59 ONCE NR As Directed Insulin Human Lispro 0 unit 03/14/21 12:00 04/14/21 11:23 Insulin Lispro 100 Unit/Ml SUB-Q 3 unit Q6HR INESSA Administration Protocol Lorazepam 1 mg 03/13/21 19:40 03/30/21 19:58 Lorazepam 2 Mg/Ml Vial IV 1 mg Q4H PRN Administration Anxiety Multi-Ingred Cream/Lotion/Oil/Oint 1 applic 03/14/21 17:50 04/10/21 22:03 Mineral Oil/Petrolatum, White Ophth Oint 3.5 Gm OU 1 applic Q4HR PRN Administration Dry Eye(s) Ondansetron HCl 4 mg 03/13/21 19:30 03/21/21 12:05 Ondansetron 4 Mg/2 Ml Inj IV 4 mg Q8H PRN Administration Nausea And Vomiting Quetiapine Fumarate 300 mg 04/06/21 22:00 04/14/21 09:08 Quetiapine 100 Mg Tab PO 300 mg BID INESSA Administration Senna/Docusate Sodium 1 tab 03/14/21 22:00 04/14/21 09:09 Sennosides/Docusate Sodium 8.6/50 Mg Tab FEEDTUBE Not Given BID INESSA Simple Syrup 15 ml 04/09/21 17:17 Simple Syrup 15 Ml FEEDTUBE PRN PRN Hypoglycemia Simple Syrup 30 ml 04/09/21 17:17 Simple Syrup 15 Ml FEEDTUBE PRN PRN Hypoglycemia Sodium Bicarbonate 325 mg 04/09/21 17:17 Sodium Bicarbonate 325 Mg Tab FEEDTUBE PRN PRN For Clogged Feeding Tube Sodium Chloride 10 ml 03/13/21 22:00 04/14/21 09:09 Sodium Chloride 0.9% 10 Ml Flush Syringe IV 10 ml BID INESSA Administration Sodium Chloride 10 ml 03/13/21 19:30 Sodium Chloride 0.9% 10 Ml Flush Syringe IV PRN PRN LINE FLUSH Zinc Sulfate 220 mg 03/14/21 22:00 04/14/21 09:08 Zinc Sulfate 220 Mg Cap PO 220 mg BID INESSA Administration Nutrition/Malnutrition Assess - Dietary Evaluation Nutrition/Malnutrition Findings: Nutrition Notes Start: 03/15/21 11:06 Freq: Status: Active Protocol: Document 04/14/21 11:13 CANDACE (Rec: 04/14/21 11:52 CANDACE [id number]) Nutrition Notes Initial or Follow up Reassessment Other Pertinent Diagnosis [id number], Transaminitis, Hyperglycemia. Current Diet TF -Glucerna 1.2 Abdullahi (since L 04/14). Labs/Tests 04/14: BUN 74, Crea 3.1, Glu 220. Pertinent Medications 04/14 Vit C, D50w (25 g) mEq, Insulin, Zn, Propofol 1,000 mg /100 ml @ 4.26 ml/hr, others nutritionally unremarkable. Height 5 ft 5 in Weight 142 kg [place] Body Weight (kg) 56.81 BMI 52.0 Weight change and time frame No new reports on body weight changes, Weight Status Morbidly Obese Subjective/Other Information RD consult on change TF from Nepro w/CARBSTEADY to Glucerna 1,2 Abdullahi, due to lack of stock Nepro. Percent of energy/protein needs met: 100% Kcal; 85% AA. Burn Absent Trauma Absent GI Symptoms None Food Allergy No Skin Integrity/Comment Clear, warm, dry. Current % PO Other Minimum of two criteria No Is patient on ventilator? Yes Is Patient Ambulatory and/or Out of Bed No REE-([place]-confined to bed) 2570.232 Kcal/Kg value to use for calculation 14 Approximate Energy Requirements Using 1988 kcal/Kg Calculation Used for Recommendations Kcal/kg Additional Notes Pro needs >1.2g/kg adjBW: > 117g/day Fluid needs 1-1.5L/day Nutrition Intervention Nutrition Support: Change to Glucerna 1.2 Abdullahi @ 69 ml/hr. Flush: 109 ml water Q 4 hr. Kcal 1,988 Protein (gm) 99 Carbohydrates (gm) 190 Fat (gm) 99 Fluid (mL) 1,334 Fiber (gm) 27 % RDI: 100% Kcal; 85% AA. Goal #1 Maintain body weight within +/ -3% of admission BWt during LOS. Goal #2 Reach and maintain acceptable chemistry lab values during LOS. Follow-Up By: 04/16/21 Additional Comments Continue monitoring TF tolerance, Hydration, and BM.
--- NOTE | 2021-04-08 15:33 | Progress Note ---
Assessment and Plan Acute hypoxemic respiratory failure Acute asthma exacerbation Morbid obesity Crohn's disease Metabolic acidosis Acute kidney injury Coronavirus infection Pneumonia (CAP) Oropharyngeal dysphagia Obesity, if not mentioned above (Padmini will need a tracheostomy once more stable; also discussed care plan at length with her mother and explained the gravity of her ill with Termination Clerk listening in) - increased inspiratory pressure to 40 cm H2O re: hypercapnia - repeat ABG at 9 pm - discussed with high voltage electrician re: pulmonary edema and she will receive HD/UF in am +/- isolated UF on monday - will increase vasopressor support during dialysis - continue care as below otherwise; - continue empiric Apixiban coverage for possible VTE as unable to get CTA - continue to wean vasopressors for target MAP > 65 mmHg - nephrology input appreciated; HD/UF for toxin and volume clearance - continue Daily SAT and SBT assessment as tolerated - continue to wean supplemental oxygen for target O2 sat's > 90% acutely - VAP bundle addressed - continue lung protective strategies - continue bronchodilators with pulmonary hygiene per RT - wean per pulmonary driven protocols otherwise - continue accuchecks with glycemic control per SSI (While critically ill target blood glucose of 140-180 mg/dL; avoid hypoglycemia) - sedation prn for target RASS 0 to -1 - avoid nephrotoxins, renally dose all medications - continue to avoid benzodiazepine's, reduce the possibility of delirium - AB's per ID rec's (s/p Cefepime) - prn analgesia per CPOT score - Maintenance of sleep-wake cycle, avoid delirium - continue enteral nutritional support at goal rate as tolerated - G.I. & VTE prophylaxis - PT/OT/ROM exercises - continue mobility protocols for pressure ulcer prophylaxis - Monitor hemodynamics closely - continue other care per attending / other consultants - discharge planning ongoing concurrently COVID SPECIFIC INTERVENTIONS - Isolation discontinued - s/p Actemra - Remdesivir as per ID/Pulmonary developed protocols (not a candidate) - continue systemic steroids for severe COVID-19 infection empirically - repeat COVID tests result negative - zinc and vitamin C supplementation - Monitor inflammatory markers per facility protocol - ferritin, Ddimer, CRP - therapeutic anticoagulation per system Protocol based on d-dimer and clinical considerations (VTE prophylaxis) - Continue contact and airborne isolation .... Re-evaluate in am & prn CONDITION: CRITICAL PROGNOSIS: GUARDED CODE STATUS: FULL CODE The high probability of a clinically significant, sudden or life-threatening deterioration of the [respiratory, cardiovascular, renal & neurologic] system(s) required my full and direct attention, intervention and personal management. The aggregate critical care time was [35] minutes without overlap. Time includes spent on; [x] Data Review and interpretation [x] Patient assessment and monitoring of vital signs [x] Documentation [x] Medication orders and management Subjective Date of service: 04/08/21 Principal diagnosis: Ac hypoxemic resp failure; AE-Asthma; SAI; Crohn's; COVID- 19; Pneumonia Interval history: Patient is seen today for: Acute hypoxemic respiratory failure; AE-Asthma; SAI; Crohn's disease; COVID-19 infection; Pneumonia (CAP) Seen and examined at bedside; 24hour events reviewed; nursing and respiratory care staff consulted; no adverse overnight events reported to me; resting in bed; remains on MVS; lung compliance worse and now with kay pulmonary edema and blood tinged secretions; remains on vasopressots; no emesis or overt aspiration but5 to receive PRBC transfusion Objective Vital Signs - 12hr 04/08/21 04/08/21 04/08/21 03:46 04:00 04:16 Temperature 101.5 F H Pulse Rate 126 H 126 H 129 H Pulse Rate [ Anterior Bilateral Throughout] Pulse Rate [ From Monitor] Respiratory 25 H 24 40 H Rate Respiratory Rate [Anterior Bilateral Throughout] Blood Pressure O2 Sat by Pulse 99 99 97 Oximetry 04/08/21 04/08/21 04/08/21 04:30 04:45 04:46 Temperature Pulse Rate 131 H 131 H 131 H Pulse Rate [ Anterior Bilateral Throughout] Pulse Rate [ From Monitor] Respiratory 16 16 Rate Respiratory Rate [Anterior Bilateral Throughout] Blood Pressure 117/59 O2 Sat by Pulse 97 97 98 Oximetry 04/08/21 04/08/21 04/08/21 05:00 05:16 05:30 Temperature Pulse Rate 130 H 129 H 129 H Pulse Rate [ Anterior Bilateral Throughout] Pulse Rate [ From Monitor] Respiratory 30 H 29 H 27 H Rate Respiratory Rate [Anterior Bilateral Throughout] Blood Pressure O2 Sat by Pulse 98 98 97 Oximetry 04/08/21 04/08/21 04/08/21 05:46 06:00 06:16 Temperature Pulse Rate 129 H 126 H 127 H Pulse Rate [ Anterior Bilateral Throughout] Pulse Rate [ From Monitor] Respiratory 23 17 19 Rate Respiratory Rate [Anterior Bilateral Throughout] Blood Pressure O2 Sat by Pulse 97 96 95 Oximetry 04/08/21 04/08/21 04/08/21 06:30 06:46 07:00 Temperature Pulse Rate 127 H 120 H 121 H Pulse Rate [ Anterior Bilateral Throughout] Pulse Rate [ From Monitor] Respiratory 21 18 17 Rate Respiratory Rate [Anterior Bilateral Throughout] Blood Pressure O2 Sat by Pulse 93 98 97 Oximetry 04/08/21 04/08/21 04/08/21 07:16 07:20 07:30 Temperature 101.5 F H Pulse Rate 122 H 123 H Pulse Rate [ Anterior Bilateral Throughout] Pulse Rate [ From Monitor] Respiratory 18 16 Rate Respiratory Rate [Anterior Bilateral Throughout] Blood Pressure O2 Sat by Pulse 97 97 Oximetry 04/08/21 04/08/21 04/08/21 07:46 07:50 08:00 Temperature 101.8 F H Pulse Rate 123 H 122 H 121 H Pulse Rate [ 121 H Anterior Bilateral Throughout] Pulse Rate [ From Monitor] Respiratory 16 19 Rate Respiratory 31 H Rate [Anterior Bilateral Throughout] Blood Pressure 99/56 O2 Sat by Pulse 96 96 100 Oximetry 04/08/21 04/08/21 04/08/21 08:08 08:16 08:30 Temperature Pulse Rate 118 H 120 H 120 H Pulse Rate [ Anterior Bilateral Throughout] Pulse Rate [ From Monitor] Respiratory 32 H 15 Rate Respiratory Rate [Anterior Bilateral Throughout] Blood Pressure O2 Sat by Pulse 98 98 Oximetry 04/08/21 04/08/21 04/08/21 08:44 08:46 09:00 Temperature Pulse Rate 122 H 123 H Pulse Rate [ Anterior Bilateral Throughout] Pulse Rate [ 121 H From Monitor] Respiratory 11 L 15 Rate Respiratory Rate [Anterior Bilateral Throughout] Blood Pressure O2 Sat by Pulse 96 96 95 Oximetry 04/08/21 04/08/21 04/08/21 09:16 09:30 09:46 Temperature Pulse Rate 123 H 124 H 128 H Pulse Rate [ Anterior Bilateral Throughout] Pulse Rate [ From Monitor] Respiratory 12 20 23 Rate Respiratory Rate [Anterior Bilateral Throughout] Blood Pressure O2 Sat by Pulse 95 94 91 Oximetry 04/08/21 04/08/21 04/08/21 10:00 10:16 10:30 Temperature Pulse Rate 127 H 124 H 130 H Pulse Rate [ Anterior Bilateral Throughout] Pulse Rate [ From Monitor] Respiratory 21 24 27 H Rate Respiratory Rate [Anterior Bilateral Throughout] Blood Pressure O2 Sat by Pulse 97 97 95 Oximetry 04/08/21 04/08/21 04/08/21 10:46 11:00 11:16 Temperature Pulse Rate 129 H 125 H 124 H Pulse Rate [ Anterior Bilateral Throughout] Pulse Rate [ From Monitor] Respiratory 16 8 L 29 H Rate Respiratory Rate [Anterior Bilateral Throughout] Blood Pressure 86/53 O2 Sat by Pulse 95 96 96 Oximetry 04/08/21 04/08/21 04/08/21 11:30 11:46 12:00 Temperature Pulse Rate 128 H 130 H 128 H Pulse Rate [ Anterior Bilateral Throughout] Pulse Rate [ From Monitor] Respiratory 30 H 30 H 29 H Rate Respiratory Rate [Anterior Bilateral Throughout] Blood Pressure O2 Sat by Pulse 95 92 88 Oximetry 04/08/21 14:06 Temperature Pulse Rate Pulse Rate [ 120 H Anterior Bilateral Throughout] Pulse Rate [ From Monitor] Respiratory Rate Respiratory 30 H Rate [Anterior Bilateral Throughout] Blood Pressure O2 Sat by Pulse Oximetry Constitutional: appears uncomfortable, other (morbidly obese female with mild ventilator dyssynchrony) Eyes: non-icteric, other (scleral erythema / bleeding is improving) ENT: oropharynx moist, other (ETT 25 cm BALJINDER) Neck: supple, no lymphadenopathy, no JVD, other (large circumference) Effort: mildly labored Ascultation: Bilateral: diminished breath sounds, rhonchi Percussion: Bilateral: not dull Cardiovascular: regular rate and rhythm Gastrointestinal: normoactive bowel sounds, soft, non-tender, non-distended (protuberant) Integumentary: rash ( ), other Extremities: no cyanosis, pulses normal, no ischemia or petechiae, edema (1+) Neurologic: non-focal exam (grossly), pupils equal and round, CN II-XII normal, motor strength normal and, other (sedated) Psychiatric: other (unasble to assess) CBC and BMP: 04/08/21 04:40 04/08/21 04:00 ABG, PT/INR, D-dimer: ABG ABG pH 7.114 pH Units (7.350-7.450) L* 04/08/21 09:55 POC ABG pCO2 64.8 mmHg (32.0-48.0) H 04/07/21 21:30 ABG pCO2 83.8 mm Hg 04/08/21 09:55 POC ABG pO2 92.1 mmHg (83-108) 04/07/21 21:30 ABG pO2 75.9 mm Hg (80.0-90.0) L 04/08/21 09:55 POC ABG HCO3 25.3 04/07/21 21:30 ABG O2 Saturation 90.6 % (95.0-99.0) L 04/08/21 09:55 PT/INR, D-dimer PT 13.9 Sec. (12.2-14.9) 04/04/21 07:55 INR 0.96 (0.87-1.13) 04/04/21 07:55 D-Dimer 2696.79 ng/mlDDU (0-234) H 04/08/21 04:40 Abnormal lab findings: Abnormal Labs 03/13/21 03/13/21 03/13/21 13:26 13:26 15:40 WBC RBC Hgb Hct MCH 27 L MCHC RDW 17.0 H Plt Count Lymph % (Auto) [place] # (Auto) Eos # (Auto) Seg Neutrophils % Lymphocytes % (Manual) Eosinophils % (Manual) Basophils % (Manual) Nucleated RBC % Seg Neutrophils # Seg Neutrophils # Man Lymphocytes # (Manual) Monocytes # (Manual) Eosinophils # (Manual) Basophils # (Manual) Percent Retic PT INR Fibrinogen D-Dimer ABG pH POC ABG pCO2 POC ABG pO2 ABG pO2 ABG HCO3 ABG O2 Saturation ABG Base Excess ABG Hemoglobin ABG Oxyhemoglobin ABG Sodium ABG Potassium ABG Chloride ABG Glucose Oxyhemoglobin Carboxyhemoglobin Sodium 136 L Potassium Chloride Carbon Dioxide BUN Creatinine Glucose 125 H 130 H POC Glucose Hemoglobin A1c Calcium Phosphorus Magnesium AST ALT Alkaline Phosphatase Lactate Dehydrogenase 235 H C-Reactive Protein 4.30 H Total Protein Albumin Triglycerides Arterial Blood Glucose Arterial Blood Ionized Calcium Urine WBC (Auto) U Epithel Cells (Auto) Urine Creatinine Random Vancomycin Coronavirus (PCR) Crossmatch 03/13/21 03/14/21 03/14/21 21:33 03:35 06:21 WBC 20.0 H RBC Hgb Hct MCH 27 L MCHC RDW 17.5 H Plt Count Lymph % (Auto) 7.8 L [place] # (Auto) 1.3 H Eos # (Auto) Seg Neutrophils % 85.4 H Lymphocytes % (Manual) Eosinophils % (Manual) Basophils % (Manual) Nucleated RBC % Seg Neutrophils # 17.1 H Seg Neutrophils # Man Lymphocytes # (Manual) Monocytes # (Manual) Eosinophils # (Manual) Basophils # (Manual) Percent Retic PT INR Fibrinogen D-Dimer ABG pH 7.323 L 7.234 L POC ABG pCO2 POC ABG pO2 ABG pO2 69.8 L ABG HCO3 ABG O2 Saturation 92.9 L 94.9 L ABG Base Excess -3.3 L -5.4 L ABG Hemoglobin ABG Oxyhemoglobin ABG Sodium ABG Potassium ABG Chloride ABG Glucose Oxyhemoglobin 91.2 L 93.2 L Carboxyhemoglobin Sodium Potassium Chloride Carbon Dioxide BUN Creatinine Glucose POC Glucose Hemoglobin A1c Calcium Phosphorus Magnesium AST ALT Alkaline Phosphatase Lactate Dehydrogenase C-Reactive Protein Total Protein Albumin Triglycerides Arterial Blood Glucose Arterial Blood Ionized Calcium Urine WBC (Auto) U Epithel Cells (Auto) Urine Creatinine Random Vancomycin Coronavirus (PCR) Crossmatch 03/14/21 03/14/21 03/14/21 06:21 07:47 11:21 WBC RBC Hgb Hct MCH MCHC RDW Plt Count Lymph % (Auto) [place] # (Auto) Eos # (Auto) Seg Neutrophils % Lymphocytes % (Manual) Eosinophils % (Manual) Basophils % (Manual) Nucleated RBC % Seg Neutrophils # Seg Neutrophils # Man Lymphocytes # (Manual) Monocytes # (Manual) Eosinophils # (Manual) Basophils # (Manual) Percent Retic PT INR Fibrinogen D-Dimer ABG pH POC ABG pCO2 POC ABG pO2 ABG pO2 ABG HCO3 ABG O2 Saturation ABG Base Excess ABG Hemoglobin ABG Oxyhemoglobin ABG Sodium ABG Potassium ABG Chloride ABG Glucose Oxyhemoglobin Carboxyhemoglobin Sodium 136 L 136 L Potassium 6.2 H* D 5.4 H Chloride Carbon Dioxide 21 L 21 L BUN Creatinine 1.5 H D 1.8 H Glucose 144 H 141 H POC Glucose 147 H Hemoglobin A1c Calcium Phosphorus Magnesium AST ALT Alkaline Phosphatase Lactate Dehydrogenase C-Reactive Protein Total Protein 8.7 H 9.2 H Albumin 3.8 L Triglycerides Arterial Blood Glucose Arterial Blood Ionized Calcium Urine WBC (Auto) U Epithel Cells (Auto) Urine Creatinine Random Vancomycin Coronavirus (PCR) Crossmatch 03/14/21 03/14/21 03/14/21 17:29 17:50 18:35 WBC RBC Hgb Hct MCH MCHC RDW Plt Count Lymph % (Auto) [place] # (Auto) Eos # (Auto) Seg Neutrophils % Lymphocytes % (Manual) Eosinophils % (Manual) Basophils % (Manual) Nucleated RBC % Seg Neutrophils # Seg Neutrophils # Man Lymphocytes # (Manual) Monocytes # (Manual) Eosinophils # (Manual) Basophils # (Manual) Percent Retic PT INR Fibrinogen D-Dimer ABG pH POC ABG pCO2 POC ABG pO2 ABG pO2 ABG HCO3 ABG O2 Saturation ABG Base Excess ABG Hemoglobin ABG Oxyhemoglobin ABG Sodium ABG Potassium ABG Chloride ABG Glucose Oxyhemoglobin Carboxyhemoglobin Sodium 135 L Potassium 6.4 H* Chloride Carbon Dioxide 15 L BUN 26 H Creatinine 3.4 H D Glucose 165 H POC Glucose 209 H Hemoglobin A1c Calcium Phosphorus Magnesium AST ALT Alkaline Phosphatase Lactate Dehydrogenase C-Reactive Protein Total Protein Albumin Triglycerides Arterial Blood Glucose Arterial Blood Ionized Calcium Urine WBC (Auto) U Epithel Cells (Auto) Urine Creatinine 40.1 H Random Vancomycin Coronavirus (PCR) Crossmatch 03/14/21 03/14/21 03/14/21 18:46 22:23 23:52 WBC RBC Hgb Hct MCH MCHC RDW Plt Count Lymph % (Auto) [place] # (Auto) Eos # (Auto) Seg Neutrophils % Lymphocytes % (Manual) Eosinophils % (Manual) Basophils % (Manual) Nucleated RBC % Seg Neutrophils # Seg Neutrophils # Man Lymphocytes # (Manual) Monocytes # (Manual) Eosinophils # (Manual) Basophils # (Manual) Percent Retic PT INR Fibrinogen D-Dimer ABG pH 7.270 L POC ABG pCO2 POC ABG pO2 63.4 L ABG pO2 ABG HCO3 ABG O2 Saturation ABG Base Excess ABG Hemoglobin ABG Oxyhemoglobin 90.2 L ABG Sodium 134.9 L ABG Potassium 5.3 H ABG Chloride ABG Glucose 134 H Oxyhemoglobin Carboxyhemoglobin Sodium 136 L Potassium 5.2 H Chloride Carbon Dioxide 20 L BUN 29 H Creatinine 3.6 H Glucose 236 H POC Glucose 128 H Hemoglobin A1c Calcium Phosphorus Magnesium AST ALT Alkaline Phosphatase Lactate Dehydrogenase C-Reactive Protein Total Protein Albumin 3.2 L Triglycerides Arterial Blood Glucose 134 H Arterial Blood Ionized Calcium Urine WBC (Auto) U Epithel Cells (Auto) Urine Creatinine Random Vancomycin Coronavirus (PCR) Crossmatch 03/14/21 03/15/21 03/15/21 Unknown 05:00 05:09 WBC 22.5 H RBC Hgb Hct MCH 27 L MCHC RDW 17.6 H Plt Count Lymph % (Auto) [place] # (Auto) Eos # (Auto) Seg Neutrophils % Lymphocytes % (Manual) Eosinophils % (Manual) Basophils % (Manual) Nucleated RBC % Seg Neutrophils # Seg Neutrophils # Man Lymphocytes # (Manual) Monocytes # (Manual) Eosinophils # (Manual) Basophils # (Manual) Percent Retic PT INR Fibrinogen D-Dimer ABG pH POC ABG pCO2 POC ABG pO2 ABG pO2 ABG HCO3 ABG O2 Saturation ABG Base Excess ABG Hemoglobin ABG Oxyhemoglobin ABG Sodium ABG Potassium ABG Chloride ABG Glucose Oxyhemoglobin Carboxyhemoglobin Sodium Potassium Chloride Carbon Dioxide BUN Creatinine Glucose POC Glucose 116 H Hemoglobin A1c Calcium Phosphorus Magnesium AST ALT Alkaline Phosphatase Lactate Dehydrogenase C-Reactive Protein Total Protein Albumin Triglycerides Arterial Blood Glucose Arterial Blood Ionized Calcium Urine WBC (Auto) U Epithel Cells (Auto) Urine Creatinine Random Vancomycin Coronavirus (PCR) Positive A Crossmatch 03/15/21 03/15/21 03/15/21 05:09 05:09 05:09 WBC RBC Hgb Hct MCH MCHC RDW Plt Count Lymph % (Auto) [place] # (Auto) Eos # (Auto) Seg Neutrophils % Lymphocytes % (Manual) Eosinophils % (Manual) Basophils % (Manual) Nucleated RBC % Seg Neutrophils # Seg Neutrophils # Man Lymphocytes # (Manual) Monocytes # (Manual) Eosinophils # (Manual) Basophils # (Manual) Percent Retic PT INR Fibrinogen D-Dimer ABG pH POC ABG pCO2 POC ABG pO2 ABG pO2 ABG HCO3 ABG O2 Saturation ABG Base Excess ABG Hemoglobin ABG Oxyhemoglobin ABG Sodium ABG Potassium ABG Chloride ABG Glucose Oxyhemoglobin Carboxyhemoglobin Sodium 136 L Potassium 6.5 H* D Chloride Carbon Dioxide 17 L BUN 41 H Creatinine 5.3 H Glucose 128 H POC Glucose Hemoglobin A1c 6.3 H Calcium Phosphorus Magnesium AST ALT Alkaline Phosphatase Lactate Dehydrogenase C-Reactive Protein 12.10 H Total Protein Albumin 3.1 L Triglycerides Arterial Blood Glucose Arterial Blood Ionized Calcium Urine WBC (Auto) U Epithel Cells (Auto) Urine Creatinine Random Vancomycin Coronavirus (PCR) Crossmatch 03/15/21 03/15/21 03/15/21 10:00 21:50 23:39 WBC RBC Hgb Hct MCH MCHC RDW Plt Count Lymph % (Auto) [place] # (Auto) Eos # (Auto) Seg Neutrophils % Lymphocytes % (Manual) Eosinophils % (Manual) Basophils % (Manual) Nucleated RBC % Seg Neutrophils # Seg Neutrophils # Man Lymphocytes # (Manual) Monocytes # (Manual) Eosinophils # (Manual) Basophils # (Manual) Percent Retic PT INR Fibrinogen D-Dimer ABG pH 7.098 L POC ABG pCO2 72.7 H POC ABG pO2 ABG pO2 162.5 H ABG HCO3 ABG O2 Saturation ABG Base Excess ABG Hemoglobin 10.1 L ABG Oxyhemoglobin ABG Sodium ABG Potassium 5.7 H ABG Chloride ABG Glucose Oxyhemoglobin Carboxyhemoglobin 0.4 L Sodium Potassium Chloride Carbon Dioxide BUN Creatinine Glucose POC Glucose 156 H Hemoglobin A1c Calcium Phosphorus Magnesium AST ALT Alkaline Phosphatase Lactate Dehydrogenase C-Reactive Protein Total Protein Albumin Triglycerides Arterial Blood Glucose Arterial Blood Ionized Calcium Urine WBC (Auto) U Epithel Cells (Auto) Urine Creatinine Random Vancomycin Coronavirus (PCR) Crossmatch 03/16/21 03/16/21 03/16/21 05:00 05:30 05:30 WBC 16.7 H RBC 3.59 L Hgb 9.6 L Hct 30.1 L MCH 27 L MCHC RDW 17.5 H Plt Count Lymph % (Auto) [place] # (Auto) Eos # (Auto) Seg Neutrophils % Lymphocytes % (Manual) Eosinophils % (Manual) Basophils % (Manual) Nucleated RBC % Seg Neutrophils # Seg Neutrophils # Man Lymphocytes # (Manual) Monocytes # (Manual) Eosinophils # (Manual) Basophils # (Manual) Percent Retic PT INR Fibrinogen D-Dimer ABG pH POC ABG pCO2 POC ABG pO2 ABG pO2 ABG HCO3 ABG O2 Saturation ABG Base Excess ABG Hemoglobin ABG Oxyhemoglobin ABG Sodium ABG Potassium ABG Chloride ABG Glucose Oxyhemoglobin Carboxyhemoglobin Sodium Potassium Chloride Carbon Dioxide BUN 46 H Creatinine 6.2 H Glucose 131 H POC Glucose Hemoglobin A1c Calcium Phosphorus 6.00 H D Magnesium AST ALT Alkaline Phosphatase Lactate Dehydrogenase 318 H C-Reactive Protein 18.60 H Total Protein Albumin 3.0 L Triglycerides Arterial Blood Glucose Arterial Blood Ionized Calcium Urine WBC (Auto) U Epithel Cells (Auto) Urine Creatinine Random Vancomycin Coronavirus (PCR) Crossmatch 03/16/21 03/16/21 03/16/21 05:51 06:37 08:58 WBC RBC Hgb Hct MCH MCHC RDW Plt Count Lymph % (Auto) [place] # (Auto) Eos # (Auto) Seg Neutrophils % Lymphocytes % (Manual) Eosinophils % (Manual) Basophils % (Manual) Nucleated RBC % Seg Neutrophils # Seg Neutrophils # Man Lymphocytes # (Manual) Monocytes # (Manual) Eosinophils # (Manual) Basophils # (Manual) Percent Retic PT INR Fibrinogen D-Dimer 3041.12 H ABG pH POC ABG pCO2 POC ABG pO2 ABG pO2 141.5 H ABG HCO3 ABG O2 Saturation ABG Base Excess ABG Hemoglobin 9.7 L ABG Oxyhemoglobin ABG Sodium ABG Potassium ABG Chloride ABG Glucose Oxyhemoglobin Carboxyhemoglobin Sodium Potassium Chloride Carbon Dioxide BUN Creatinine Glucose POC Glucose 126 H Hemoglobin A1c Calcium Phosphorus Magnesium AST ALT Alkaline Phosphatase Lactate Dehydrogenase C-Reactive Protein Total Protein Albumin Triglycerides Arterial Blood Glucose Arterial Blood Ionized Calcium Urine WBC (Auto) U Epithel Cells (Auto) Urine Creatinine Random Vancomycin Coronavirus (PCR) Crossmatch 03/16/21 03/16/21 03/16/21 12:11 16:51 21:00 WBC RBC Hgb Hct MCH MCHC RDW Plt Count Lymph % (Auto) [place] # (Auto) Eos # (Auto) Seg Neutrophils % Lymphocytes % (Manual) Eosinophils % (Manual) Basophils % (Manual) Nucleated RBC % Seg Neutrophils # Seg Neutrophils # Man Lymphocytes # (Manual) Monocytes # (Manual) Eosinophils # (Manual) Basophils # (Manual) Percent Retic PT INR Fibrinogen D-Dimer ABG pH 7.239 L POC ABG pCO2 61.5 H POC ABG pO2 80.8 L ABG pO2 ABG HCO3 ABG O2 Saturation ABG Base Excess ABG Hemoglobin 11.4 L ABG Oxyhemoglobin 93.5 L ABG Sodium ABG Potassium 5.4 H ABG Chloride ABG Glucose 137 H Oxyhemoglobin Carboxyhemoglobin 0.2 L Sodium Potassium Chloride Carbon Dioxide BUN Creatinine Glucose POC Glucose 156 H 133 H Hemoglobin A1c Calcium Phosphorus Magnesium AST ALT Alkaline Phosphatase Lactate Dehydrogenase C-Reactive Protein Total Protein Albumin Triglycerides Arterial Blood Glucose 137 H Arterial Blood Ionized Calcium Urine WBC (Auto) U Epithel Cells (Auto) Urine Creatinine Random Vancomycin Coronavirus (PCR) Crossmatch 03/16/21 03/17/21 03/17/21 23:42 05:23 05:23 WBC 18.4 H RBC Hgb Hct MCH 27 L MCHC RDW 17.4 H Plt Count Lymph % (Auto) [place] # (Auto) Eos # (Auto) Seg Neutrophils % Lymphocytes % (Manual) Eosinophils % (Manual) Basophils % (Manual) Nucleated RBC % Seg Neutrophils # Seg Neutrophils # Man Lymphocytes # (Manual) Monocytes # (Manual) Eosinophils # (Manual) Basophils # (Manual) Percent Retic PT INR Fibrinogen D-Dimer ABG pH POC ABG pCO2 POC ABG pO2 ABG pO2 ABG HCO3 ABG O2 Saturation ABG Base Excess ABG Hemoglobin ABG Oxyhemoglobin ABG Sodium ABG Potassium ABG Chloride ABG Glucose Oxyhemoglobin Carboxyhemoglobin Sodium Potassium 5.2 H Chloride Carbon Dioxide 21 L BUN 79 H Creatinine 8.6 H Glucose 124 H POC Glucose 133 H Hemoglobin A1c Calcium Phosphorus Magnesium AST ALT Alkaline Phosphatase Lactate Dehydrogenase C-Reactive Protein Total Protein Albumin 3.2 L Triglycerides 285 H Arterial Blood Glucose Arterial Blood Ionized Calcium Urine WBC (Auto) U Epithel Cells (Auto) Urine Creatinine Random Vancomycin Coronavirus (PCR) Crossmatch 03/17/21 03/17/21 03/17/21 05:23 10:48 12:20 WBC RBC Hgb Hct MCH MCHC RDW Plt Count Lymph % (Auto) [place] # (Auto) Eos # (Auto) Seg Neutrophils % Lymphocytes % (Manual) Eosinophils % (Manual) Basophils % (Manual) Nucleated RBC % Seg Neutrophils # Seg Neutrophils # Man Lymphocytes # (Manual) Monocytes # (Manual) Eosinophils # (Manual) Basophils # (Manual) Percent Retic PT INR Fibrinogen D-Dimer ABG pH 7.294 L POC ABG pCO2 POC ABG pO2 ABG pO2 90.3 H ABG HCO3 ABG O2 Saturation ABG Base Excess ABG Hemoglobin 9.9 L ABG Oxyhemoglobin ABG Sodium ABG Potassium ABG Chloride ABG Glucose Oxyhemoglobin Carboxyhemoglobin Sodium Potassium 5.2 H Chloride Carbon Dioxide 21 L BUN 79 H Creatinine 8.4 H Glucose 125 H POC Glucose 171 H Hemoglobin A1c Calcium Phosphorus 9.90 H D Magnesium 2.40 H AST ALT Alkaline Phosphatase Lactate Dehydrogenase C-Reactive Protein Total Protein Albumin Triglycerides Arterial Blood Glucose Arterial Blood Ionized Calcium Urine WBC (Auto) U Epithel Cells (Auto) Urine Creatinine Random Vancomycin Coronavirus (PCR) Crossmatch 03/17/21 03/17/21 03/18/21 17:24 21:00 04:30 WBC RBC Hgb Hct MCH MCHC RDW Plt Count Lymph % (Auto) [place] # (Auto) Eos # (Auto) Seg Neutrophils % Lymphocytes % (Manual) Eosinophils % (Manual) Basophils % (Manual) Nucleated RBC % Seg Neutrophils # Seg Neutrophils # Man Lymphocytes # (Manual) Monocytes # (Manual) Eosinophils # (Manual) Basophils # (Manual) Percent Retic PT INR Fibrinogen D-Dimer 9953.09 H ABG pH 7.310 L POC ABG pCO2 54.5 H POC ABG pO2 62.3 L ABG pO2 ABG HCO3 ABG O2 Saturation ABG Base Excess ABG Hemoglobin 10.2 L ABG Oxyhemoglobin 88.6 L ABG Sodium ABG Potassium 4.7 H ABG Chloride ABG Glucose 99 H Oxyhemoglobin Carboxyhemoglobin 0.3 L Sodium Potassium Chloride Carbon Dioxide BUN Creatinine Glucose POC Glucose 121 H Hemoglobin A1c Calcium Phosphorus Magnesium AST ALT Alkaline Phosphatase Lactate Dehydrogenase C-Reactive Protein Total Protein Albumin Triglycerides Arterial Blood Glucose 99 H Arterial Blood Ionized Calcium 4.3 L Urine WBC (Auto) U Epithel Cells (Auto) Urine Creatinine Random Vancomycin Coronavirus (PCR) Crossmatch 03/18/21 03/18/21 03/18/21 04:30 04:30 11:34 WBC 12.8 H RBC 3.49 L Hgb 9.4 L Hct 29.3 L MCH 27 L MCHC RDW 17.4 H Plt Count Lymph % (Auto) [place] # (Auto) Eos # (Auto) Seg Neutrophils % Lymphocytes % (Manual) Eosinophils % (Manual) Basophils % (Manual) Nucleated RBC % Seg Neutrophils # Seg Neutrophils # Man Lymphocytes # (Manual) Monocytes # (Manual) Eosinophils # (Manual) Basophils # (Manual) Percent Retic PT INR Fibrinogen D-Dimer ABG pH POC ABG pCO2 POC ABG pO2 ABG pO2 ABG HCO3 ABG O2 Saturation ABG Base Excess ABG Hemoglobin ABG Oxyhemoglobin ABG Sodium ABG Potassium ABG Chloride ABG Glucose Oxyhemoglobin Carboxyhemoglobin Sodium Potassium Chloride Carbon Dioxide BUN 69 H Creatinine 7.3 H Glucose POC Glucose 114 H Hemoglobin A1c Calcium 8.2 L Phosphorus 7.60 H D Magnesium AST ALT Alkaline Phosphatase Lactate Dehydrogenase 477 H C-Reactive Protein 6.90 H Total Protein Albumin Triglycerides Arterial Blood Glucose Arterial Blood Ionized Calcium Urine WBC (Auto) U Epithel Cells (Auto) Urine Creatinine Random Vancomycin Coronavirus (PCR) Crossmatch 03/18/21 03/19/21 03/19/21 21:44 04:13 04:13 WBC 13.7 H RBC 3.32 L Hgb 9.0 L Hct 28.1 L MCH 27 L MCHC RDW 16.9 H Plt Count Lymph % (Auto) [place] # (Auto) Eos # (Auto) Seg Neutrophils % Lymphocytes % (Manual) Eosinophils % (Manual) Basophils % (Manual) Nucleated RBC % Seg Neutrophils # Seg Neutrophils # Man Lymphocytes # (Manual) Monocytes # (Manual) Eosinophils # (Manual) Basophils # (Manual) Percent Retic PT INR Fibrinogen D-Dimer ABG pH 7.290 L POC ABG pCO2 POC ABG pO2 ABG pO2 119.7 H ABG HCO3 28.0 H ABG O2 Saturation ABG Base Excess ABG Hemoglobin 9.6 L ABG Oxyhemoglobin ABG Sodium ABG Potassium ABG Chloride ABG Glucose Oxyhemoglobin Carboxyhemoglobin Sodium Potassium Chloride Carbon Dioxide BUN Creatinine Glucose POC Glucose Hemoglobin A1c Calcium Phosphorus Magnesium AST ALT Alkaline Phosphatase Lactate Dehydrogenase C-Reactive Protein Total Protein Albumin Triglycerides Arterial Blood Glucose Arterial Blood Ionized Calcium Urine WBC (Auto) U Epithel Cells (Auto) Urine Creatinine Random Vancomycin 43.5 H Coronavirus (PCR) Crossmatch 03/19/21 03/19/21 03/19/21 04:13 05:59 11:40 WBC RBC Hgb Hct MCH MCHC RDW Plt Count Lymph % (Auto) [place] # (Auto) Eos # (Auto) Seg Neutrophils % Lymphocytes % (Manual) Eosinophils % (Manual) Basophils % (Manual) Nucleated RBC % Seg Neutrophils # Seg Neutrophils # Man Lymphocytes # (Manual) Monocytes # (Manual) Eosinophils # (Manual) Basophils # (Manual) Percent Retic PT INR Fibrinogen D-Dimer ABG pH POC ABG pCO2 POC ABG pO2 ABG pO2 ABG HCO3 ABG O2 Saturation ABG Base Excess ABG Hemoglobin ABG Oxyhemoglobin ABG Sodium ABG Potassium ABG Chloride ABG Glucose Oxyhemoglobin Carboxyhemoglobin Sodium Potassium Chloride Carbon Dioxide BUN 55 H Creatinine 7.0 H Glucose POC Glucose 116 H 145 H Hemoglobin A1c Calcium 8.1 L Phosphorus 7.90 H Magnesium AST ALT Alkaline Phosphatase Lactate Dehydrogenase C-Reactive Protein Total Protein Albumin Triglycerides Arterial Blood Glucose Arterial Blood Ionized Calcium Urine WBC (Auto) U Epithel Cells (Auto) Urine Creatinine Random Vancomycin Coronavirus (PCR) Crossmatch 03/19/21 03/19/21 03/20/21 17:01 23:41 04:00 WBC 15.6 H RBC 3.55 L Hgb 9.6 L Hct MCH 27 L MCHC RDW 16.8 H Plt Count 139 L Lymph % (Auto) [place] # (Auto) Eos # (Auto) Seg Neutrophils % Lymphocytes % (Manual) Eosinophils % (Manual) Basophils % (Manual) Nucleated RBC % Seg Neutrophils # Seg Neutrophils # Man Lymphocytes # (Manual) Monocytes # (Manual) Eosinophils # (Manual) Basophils # (Manual) Percent Retic PT INR Fibrinogen D-Dimer ABG pH POC ABG pCO2 POC ABG pO2 ABG pO2 ABG HCO3 ABG O2 Saturation ABG Base Excess ABG Hemoglobin ABG Oxyhemoglobin ABG Sodium ABG Potassium ABG Chloride ABG Glucose Oxyhemoglobin Carboxyhemoglobin Sodium Potassium Chloride Carbon Dioxide BUN Creatinine Glucose POC Glucose 111 H 118 H Hemoglobin A1c Calcium Phosphorus Magnesium AST ALT Alkaline Phosphatase Lactate Dehydrogenase C-Reactive Protein Total Protein Albumin Triglycerides Arterial Blood Glucose Arterial Blood Ionized Calcium Urine WBC (Auto) U Epithel Cells (Auto) Urine Creatinine Random Vancomycin Coronavirus (PCR) Crossmatch 03/20/21 03/20/21 03/20/21 04:00 04:00 04:37 WBC RBC Hgb Hct MCH MCHC RDW Plt Count Lymph % (Auto) [place] # (Auto) Eos # (Auto) Seg Neutrophils % Lymphocytes % (Manual) Eosinophils % (Manual) Basophils % (Manual) Nucleated RBC % Seg Neutrophils # Seg Neutrophils # Man Lymphocytes # (Manual) Monocytes # (Manual) Eosinophils # (Manual) Basophils # (Manual) Percent Retic PT INR Fibrinogen D-Dimer > 05352 H ABG pH 7.306 L POC ABG pCO2 POC ABG pO2 ABG pO2 ABG HCO3 27.9 H ABG O2 Saturation ABG Base Excess ABG Hemoglobin 5.2 L ABG Oxyhemoglobin ABG Sodium ABG Potassium ABG Chloride ABG Glucose Oxyhemoglobin Carboxyhemoglobin Sodium Potassium 5.2 H Chloride 97.6 L Carbon Dioxide BUN 52 H Creatinine 6.2 H Glucose 104 H POC Glucose Hemoglobin A1c Calcium Phosphorus 8.60 H Magnesium AST ALT Alkaline Phosphatase Lactate Dehydrogenase C-Reactive Protein 6.90 H Total Protein Albumin Triglycerides Arterial Blood Glucose Arterial Blood Ionized Calcium Urine WBC (Auto) U Epithel Cells (Auto) Urine Creatinine Random Vancomycin Coronavirus (PCR) Crossmatch 03/20/21 03/20/21 03/20/21 13:50 17:46 17:56 WBC RBC Hgb Hct MCH MCHC RDW Plt Count Lymph % (Auto) [place] # (Auto) Eos # (Auto) Seg Neutrophils % Lymphocytes % (Manual) Eosinophils % (Manual) Basophils % (Manual) Nucleated RBC % Seg Neutrophils # Seg Neutrophils # Man Lymphocytes # (Manual) Monocytes # (Manual) Eosinophils # (Manual) Basophils # (Manual) Percent Retic PT INR Fibrinogen D-Dimer ABG pH POC ABG pCO2 POC ABG pO2 ABG pO2 ABG HCO3 ABG O2 Saturation ABG Base Excess ABG Hemoglobin ABG Oxyhemoglobin ABG Sodium ABG Potassium ABG Chloride ABG Glucose Oxyhemoglobin Carboxyhemoglobin Sodium Potassium Chloride Carbon Dioxide BUN 63 H 43 H Creatinine Glucose POC Glucose 145 H Hemoglobin A1c Calcium Phosphorus Magnesium AST ALT Alkaline Phosphatase Lactate Dehydrogenase C-Reactive Protein Total Protein Albumin Triglycerides Arterial Blood Glucose Arterial Blood Ionized Calcium Urine WBC (Auto) U Epithel Cells (Auto) Urine Creatinine Random Vancomycin Coronavirus (PCR) Crossmatch 03/20/21 03/21/21 03/21/21 23:18 06:58 06:58 WBC 14.4 H RBC 3.41 L Hgb 9.5 L Hct 28.6 L MCH MCHC RDW 17.4 H Plt Count 107 L Lymph % (Auto) [place] # (Auto) Eos # (Auto) Seg Neutrophils % Lymphocytes % (Manual) Eosinophils % (Manual) Basophils % (Manual) Nucleated RBC % Seg Neutrophils # Seg Neutrophils # Man Lymphocytes # (Manual) Monocytes # (Manual) Eosinophils # (Manual) Basophils # (Manual) Percent Retic PT INR Fibrinogen D-Dimer ABG pH POC ABG pCO2 POC ABG pO2 ABG pO2 ABG HCO3 ABG O2 Saturation ABG Base Excess ABG Hemoglobin ABG Oxyhemoglobin ABG Sodium ABG Potassium ABG Chloride ABG Glucose Oxyhemoglobin Carboxyhemoglobin Sodium Potassium Chloride Carbon Dioxide BUN 60 H Creatinine 7.7 H Glucose POC Glucose 106 H Hemoglobin A1c Calcium Phosphorus Magnesium AST ALT Alkaline Phosphatase Lactate Dehydrogenase C-Reactive Protein Total Protein Albumin Triglycerides Arterial Blood Glucose Arterial Blood Ionized Calcium Urine WBC (Auto) U Epithel Cells (Auto) Urine Creatinine Random Vancomycin Coronavirus (PCR) Crossmatch 03/21/21 03/21/21 03/21/21 11:11 18:04 Unknown WBC RBC Hgb Hct MCH MCHC RDW Plt Count Lymph % (Auto) [place] # (Auto) Eos # (Auto) Seg Neutrophils % Lymphocytes % (Manual) Eosinophils % (Manual) Basophils % (Manual) Nucleated RBC % Seg Neutrophils # Seg Neutrophils # Man Lymphocytes # (Manual) Monocytes # (Manual) Eosinophils # (Manual) Basophils # (Manual) Percent Retic PT INR Fibrinogen D-Dimer ABG pH 7.270 L POC ABG pCO2 58.7 H POC ABG pO2 76.9 L ABG pO2 ABG HCO3 ABG O2 Saturation ABG Base Excess ABG Hemoglobin 9.9 L ABG Oxyhemoglobin 92.4 L ABG Sodium 135.8 L ABG Potassium 4.6 H ABG Chloride ABG Glucose Oxyhemoglobin Carboxyhemoglobin 0.1 L Sodium Potassium Chloride Carbon Dioxide BUN Creatinine Glucose POC Glucose 109 H 141 H Hemoglobin A1c Calcium Phosphorus Magnesium AST ALT Alkaline Phosphatase Lactate Dehydrogenase C-Reactive Protein Total Protein Albumin Triglycerides Arterial Blood Glucose Arterial Blood Ionized Calcium 4.5 L Urine WBC (Auto) U Epithel Cells (Auto) Urine Creatinine Random Vancomycin Coronavirus (PCR) Crossmatch 03/22/21 03/22/21 03/22/21 03:09 07:10 10:00 WBC RBC Hgb Hct MCH MCHC RDW Plt Count Lymph % (Auto) [place] # (Auto) Eos # (Auto) Seg Neutrophils % Lymphocytes % (Manual) Eosinophils % (Manual) Basophils % (Manual) Nucleated RBC % Seg Neutrophils # Seg Neutrophils # Man Lymphocytes # (Manual) Monocytes # (Manual) Eosinophils # (Manual) Basophils # (Manual) Percent Retic PT INR Fibrinogen D-Dimer ABG pH 7.206 L 7.245 L POC ABG pCO2 55.6 H POC ABG pO2 ABG pO2 90.6 H ABG HCO3 ABG O2 Saturation ABG Base Excess -4.4 L ABG Hemoglobin 9.0 L 8.4 L ABG Oxyhemoglobin ABG Sodium 123.4 L ABG Potassium 5.6 H ABG Chloride ABG Glucose 106 H Oxyhemoglobin 94.5 L Carboxyhemoglobin 0.1 L Sodium Potassium 5.4 H Chloride 96.8 L Carbon Dioxide BUN 89 H Creatinine 8.7 H Glucose 131 H POC Glucose Hemoglobin A1c Calcium Phosphorus Magnesium AST ALT Alkaline Phosphatase Lactate Dehydrogenase C-Reactive Protein 9.40 H Total Protein Albumin Triglycerides Arterial Blood Glucose 106 H Arterial Blood Ionized Calcium Urine WBC (Auto) U Epithel Cells (Auto) Urine Creatinine Random Vancomycin Coronavirus (PCR) Crossmatch 03/22/21 03/22/21 03/22/21 10:00 12:37 13:19 WBC RBC 3.05 L Hgb 8.4 L Hct 25.5 L MCH MCHC RDW 17.5 H Plt Count 108 L Lymph % (Auto) [place] # (Auto) Eos # (Auto) Seg Neutrophils % Lymphocytes % (Manual) Eosinophils % (Manual) Basophils % (Manual) Nucleated RBC % Seg Neutrophils # Seg Neutrophils # Man Lymphocytes # (Manual) Monocytes # (Manual) Eosinophils # (Manual) Basophils # (Manual) Percent Retic PT INR Fibrinogen D-Dimer ABG pH POC ABG pCO2 POC ABG pO2 ABG pO2 ABG HCO3 ABG O2 Saturation ABG Base Excess ABG Hemoglobin ABG Oxyhemoglobin ABG Sodium ABG Potassium ABG Chloride ABG Glucose Oxyhemoglobin Carboxyhemoglobin Sodium Potassium Chloride Carbon Dioxide BUN Creatinine 8.7 H Glucose POC Glucose 140 H Hemoglobin A1c Calcium Phosphorus Magnesium AST ALT Alkaline Phosphatase Lactate Dehydrogenase C-Reactive Protein Total Protein Albumin Triglycerides Arterial Blood Glucose Arterial Blood Ionized Calcium Urine WBC (Auto) U Epithel Cells (Auto) Urine Creatinine Random Vancomycin Coronavirus (PCR) Crossmatch 03/22/21 03/22/21 03/22/21 13:40 17:14 18:21 WBC RBC Hgb Hct MCH MCHC RDW Plt Count Lymph % (Auto) [place] # (Auto) Eos # (Auto) Seg Neutrophils % Lymphocytes % (Manual) Eosinophils % (Manual) Basophils % (Manual) Nucleated RBC % Seg Neutrophils # Seg Neutrophils # Man Lymphocytes # (Manual) Monocytes # (Manual) Eosinophils # (Manual) Basophils # (Manual) Percent Retic PT 15.8 H INR 1.14 H Fibrinogen D-Dimer > 23361 H ABG pH POC ABG pCO2 POC ABG pO2 ABG pO2 ABG HCO3 ABG O2 Saturation ABG Base Excess ABG Hemoglobin ABG Oxyhemoglobin ABG Sodium ABG Potassium ABG Chloride ABG Glucose Oxyhemoglobin Carboxyhemoglobin Sodium Potassium Chloride Carbon Dioxide BUN Creatinine Glucose POC Glucose 117 H 112 H Hemoglobin A1c Calcium Phosphorus Magnesium AST ALT Alkaline Phosphatase Lactate Dehydrogenase C-Reactive Protein Total Protein Albumin Triglycerides Arterial Blood Glucose Arterial Blood Ionized Calcium Urine WBC (Auto) U Epithel Cells (Auto) Urine Creatinine Random Vancomycin Coronavirus (PCR) Crossmatch 03/22/21 03/22/21 03/23/21 21:25 22:57 04:30 WBC RBC Hgb Hct MCH MCHC RDW Plt Count Lymph % (Auto) [place] # (Auto) Eos # (Auto) Seg Neutrophils % Lymphocytes % (Manual) Eosinophils % (Manual) Basophils % (Manual) Nucleated RBC % Seg Neutrophils # Seg Neutrophils # Man Lymphocytes # (Manual) Monocytes # (Manual) Eosinophils # (Manual) Basophils # (Manual) Percent Retic PT INR Fibrinogen D-Dimer ABG pH 7.188 L* POC ABG pCO2 POC ABG pO2 ABG pO2 97.9 H ABG HCO3 ABG O2 Saturation ABG Base Excess -3.7 L ABG Hemoglobin 9.2 L ABG Oxyhemoglobin ABG Sodium ABG Potassium ABG Chloride ABG Glucose Oxyhemoglobin 94.4 L Carboxyhemoglobin Sodium Potassium Chloride Carbon Dioxide BUN Creatinine Glucose POC Glucose 106 H Hemoglobin A1c Calcium Phosphorus Magnesium AST ALT Alkaline Phosphatase Lactate Dehydrogenase C-Reactive Protein Total Protein Albumin Triglycerides 381 H Arterial Blood Glucose Arterial Blood Ionized Calcium Urine WBC (Auto) U Epithel Cells (Auto) Urine Creatinine Random Vancomycin Coronavirus (PCR) Crossmatch 03/23/21 03/23/21 03/23/21 04:30 04:30 05:37 WBC 20.1 H RBC 3.17 L Hgb 8.6 L Hct 27.2 L MCH 27 L MCHC RDW 17.4 H Plt Count 118 L Lymph % (Auto) [place] # (Auto) Eos # (Auto) Seg Neutrophils % Lymphocytes % (Manual) Eosinophils % (Manual) Basophils % (Manual) Nucleated RBC % Seg Neutrophils # Seg Neutrophils # Man Lymphocytes # (Manual) Monocytes # (Manual) Eosinophils # (Manual) Basophils # (Manual) Percent Retic PT INR Fibrinogen D-Dimer ABG pH POC ABG pCO2 POC ABG pO2 ABG pO2 ABG HCO3 ABG O2 Saturation ABG Base Excess ABG Hemoglobin ABG Oxyhemoglobin ABG Sodium ABG Potassium ABG Chloride ABG Glucose Oxyhemoglobin Carboxyhemoglobin Sodium Potassium 5.2 H Chloride 97.1 L Carbon Dioxide 21 L BUN 82 H Creatinine 9.1 H Glucose 109 H POC Glucose 130 H Hemoglobin A1c Calcium Phosphorus 10.80 H Magnesium 3.50 H AST ALT Alkaline Phosphatase Lactate Dehydrogenase C-Reactive Protein Total Protein Albumin Triglycerides Arterial Blood Glucose Arterial Blood Ionized Calcium Urine WBC (Auto) U Epithel Cells (Auto) Urine Creatinine Random Vancomycin Coronavirus (PCR) Crossmatch 03/23/21 03/23/21 03/23/21 08:44 11:30 16:09 WBC RBC Hgb Hct MCH MCHC RDW Plt Count Lymph % (Auto) [place] # (Auto) Eos # (Auto) Seg Neutrophils % Lymphocytes % (Manual) Eosinophils % (Manual) Basophils % (Manual) Nucleated RBC % Seg Neutrophils # Seg Neutrophils # Man Lymphocytes # (Manual) Monocytes # (Manual) Eosinophils # (Manual) Basophils # (Manual) Percent Retic PT INR Fibrinogen D-Dimer ABG pH 7.190 L POC ABG pCO2 57.9 H POC ABG pO2 79.2 L ABG pO2 ABG HCO3 ABG O2 Saturation ABG Base Excess ABG Hemoglobin 11.8 L ABG Oxyhemoglobin 92.3 L ABG Sodium 131.0 L ABG Potassium 5.0 H ABG Chloride ABG Glucose 122 H Oxyhemoglobin Carboxyhemoglobin 0.4 L Sodium Potassium Chloride Carbon Dioxide BUN Creatinine Glucose POC Glucose 129 H 148 H Hemoglobin A1c Calcium Phosphorus Magnesium AST ALT Alkaline Phosphatase Lactate Dehydrogenase C-Reactive Protein Total Protein Albumin Triglycerides Arterial Blood Glucose 122 H Arterial Blood Ionized Calcium 4.4 L Urine WBC (Auto) U Epithel Cells (Auto) Urine Creatinine Random Vancomycin Coronavirus (PCR) Crossmatch 03/23/21 03/24/21 03/24/21 21:00 03:35 04:00 WBC 17.8 H RBC 2.96 L Hgb 8.1 L Hct 25.0 L MCH 27 L MCHC RDW 17.7 H Plt Count 124 L Lymph % (Auto) [place] # (Auto) Eos # (Auto) Seg Neutrophils % Lymphocytes % (Manual) Eosinophils % (Manual) Basophils % (Manual) Nucleated RBC % Seg Neutrophils # Seg Neutrophils # Man Lymphocytes # (Manual) Monocytes # (Manual) Eosinophils # (Manual) Basophils # (Manual) Percent Retic PT INR Fibrinogen D-Dimer ABG pH 7.223 L POC ABG pCO2 50.3 H POC ABG pO2 114.4 H ABG pO2 ABG HCO3 ABG O2 Saturation ABG Base Excess ABG Hemoglobin 8.8 L ABG Oxyhemoglobin ABG Sodium 130.4 L ABG Potassium 5.1 H ABG Chloride ABG Glucose 126 H Oxyhemoglobin Carboxyhemoglobin 0.2 L Sodium Potassium Chloride Carbon Dioxide BUN Creatinine Glucose POC Glucose 148 H Hemoglobin A1c Calcium Phosphorus Magnesium AST ALT Alkaline Phosphatase Lactate Dehydrogenase C-Reactive Protein Total Protein Albumin Triglycerides Arterial Blood Glucose 126 H Arterial Blood Ionized Calcium 4.4 L Urine WBC (Auto) U Epithel Cells (Auto) Urine Creatinine Random Vancomycin Coronavirus (PCR) Crossmatch 03/24/21 03/24/21 03/24/21 04:00 06:49 12:29 WBC RBC Hgb Hct MCH MCHC RDW Plt Count Lymph % (Auto) [place] # (Auto) Eos # (Auto) Seg Neutrophils % Lymphocytes % (Manual) Eosinophils % (Manual) Basophils % (Manual) Nucleated RBC % Seg Neutrophils # Seg Neutrophils # Man Lymphocytes # (Manual) Monocytes # (Manual) Eosinophils # (Manual) Basophils # (Manual) Percent Retic PT INR Fibrinogen D-Dimer ABG pH POC ABG pCO2 POC ABG pO2 ABG pO2 ABG HCO3 ABG O2 Saturation ABG Base Excess ABG Hemoglobin ABG Oxyhemoglobin ABG Sodium ABG Potassium ABG Chloride ABG Glucose Oxyhemoglobin Carboxyhemoglobin Sodium Potassium Chloride 95.6 L Carbon Dioxide 20 L BUN 108 H Creatinine 10.8 H Glucose 155 H POC Glucose 136 H 142 H Hemoglobin A1c Calcium Phosphorus Magnesium AST ALT Alkaline Phosphatase Lactate Dehydrogenase C-Reactive Protein Total Protein Albumin Triglycerides Arterial Blood Glucose Arterial Blood Ionized Calcium Urine WBC (Auto) U Epithel Cells (Auto) Urine Creatinine Random Vancomycin Coronavirus (PCR) Crossmatch 03/24/21 03/25/21 03/25/21 21:35 00:15 05:51 WBC RBC Hgb Hct MCH MCHC RDW Plt Count Lymph % (Auto) [place] # (Auto) Eos # (Auto) Seg Neutrophils % Lymphocytes % (Manual) Eosinophils % (Manual) Basophils % (Manual) Nucleated RBC % Seg Neutrophils # Seg Neutrophils # Man Lymphocytes # (Manual) Monocytes # (Manual) Eosinophils # (Manual) Basophils # (Manual) Percent Retic PT INR Fibrinogen D-Dimer ABG pH 7.241 L POC ABG pCO2 POC ABG pO2 ABG pO2 72.4 L ABG HCO3 ABG O2 Saturation 90.3 L ABG Base Excess ABG Hemoglobin 7.9 L ABG Oxyhemoglobin ABG Sodium ABG Potassium ABG Chloride ABG Glucose Oxyhemoglobin 88.4 L Carboxyhemoglobin Sodium Potassium Chloride Carbon Dioxide BUN Creatinine Glucose POC Glucose 110 H 121 H Hemoglobin A1c Calcium Phosphorus Magnesium AST ALT Alkaline Phosphatase Lactate Dehydrogenase C-Reactive Protein Total Protein Albumin Triglycerides Arterial Blood Glucose Arterial Blood Ionized Calcium Urine WBC (Auto) U Epithel Cells (Auto) Urine Creatinine Random Vancomycin Coronavirus (PCR) Crossmatch 03/25/21 03/25/21 03/25/21 05:54 05:54 12:21 WBC 12.4 H RBC 2.52 L Hgb 6.9 L Hct 21.1 L MCH MCHC RDW 17.4 H Plt Count 102 L Lymph % (Auto) [place] # (Auto) Eos # (Auto) Seg Neutrophils % Lymphocytes % (Manual) Eosinophils % (Manual) Basophils % (Manual) Nucleated RBC % Seg Neutrophils # Seg Neutrophils # Man Lymphocytes # (Manual) Monocytes # (Manual) Eosinophils # (Manual) Basophils # (Manual) Percent Retic PT INR Fibrinogen D-Dimer ABG pH POC ABG pCO2 POC ABG pO2 ABG pO2 ABG HCO3 ABG O2 Saturation ABG Base Excess ABG Hemoglobin ABG Oxyhemoglobin ABG Sodium ABG Potassium ABG Chloride ABG Glucose Oxyhemoglobin Carboxyhemoglobin Sodium Potassium Chloride 96.7 L Carbon Dioxide BUN 81 H Creatinine 8.1 H Glucose 116 H POC Glucose 138 H Hemoglobin A1c Calcium 8.2 L Phosphorus Magnesium AST ALT Alkaline Phosphatase Lactate Dehydrogenase C-Reactive Protein Total Protein Albumin Triglycerides Arterial Blood Glucose Arterial Blood Ionized Calcium Urine WBC (Auto) U Epithel Cells (Auto) Urine Creatinine Random Vancomycin Coronavirus (PCR) Crossmatch 03/25/21 03/25/21 03/25/21 13:45 17:32 21:30 WBC RBC Hgb Hct MCH MCHC RDW Plt Count Lymph % (Auto) [place] # (Auto) Eos # (Auto) Seg Neutrophils % Lymphocytes % (Manual) Eosinophils % (Manual) Basophils % (Manual) Nucleated RBC % Seg Neutrophils # Seg Neutrophils # Man Lymphocytes # (Manual) Monocytes # (Manual) Eosinophils # (Manual) Basophils # (Manual) Percent Retic PT INR Fibrinogen D-Dimer ABG pH POC ABG pCO2 POC ABG pO2 ABG pO2 70.2 L ABG HCO3 ABG O2 Saturation ABG Base Excess ABG Hemoglobin 6.8 L ABG Oxyhemoglobin ABG Sodium ABG Potassium ABG Chloride ABG Glucose Oxyhemoglobin 94.5 L Carboxyhemoglobin Sodium Potassium Chloride Carbon Dioxide BUN Creatinine Glucose POC Glucose 110 H Hemoglobin A1c Calcium Phosphorus Magnesium AST ALT Alkaline Phosphatase Lactate Dehydrogenase C-Reactive Protein Total Protein Albumin Triglycerides Arterial Blood Glucose Arterial Blood Ionized Calcium Urine WBC (Auto) U Epithel Cells (Auto) Urine Creatinine Random Vancomycin Coronavirus (PCR) Crossmatch See Detail 03/25/21 03/25/21 03/26/21 23:29 Unknown 05:15 WBC 12.4 H 14.0 H RBC 2.49 L 2.83 L Hgb 6.8 L 7.6 L Hct 20.9 L 23.6 L MCH 27 L 27 L MCHC RDW 18.0 H 17.1 H Plt Count 107 L 116 L Lymph % (Auto) [place] # (Auto) Eos # (Auto) Seg Neutrophils % Lymphocytes % (Manual) Eosinophils % (Manual) Basophils % (Manual) Nucleated RBC % Seg Neutrophils # Seg Neutrophils # Man Lymphocytes # (Manual) Monocytes # (Manual) Eosinophils # (Manual) Basophils # (Manual) Percent Retic PT INR Fibrinogen D-Dimer ABG pH POC ABG pCO2 POC ABG pO2 ABG pO2 ABG HCO3 ABG O2 Saturation ABG Base Excess ABG Hemoglobin ABG Oxyhemoglobin ABG Sodium ABG Potassium ABG Chloride ABG Glucose Oxyhemoglobin Carboxyhemoglobin Sodium Potassium Chloride Carbon Dioxide BUN Creatinine Glucose POC Glucose 113 H Hemoglobin A1c Calcium Phosphorus Magnesium AST ALT Alkaline Phosphatase Lactate Dehydrogenase C-Reactive Protein Total Protein Albumin Triglycerides Arterial Blood Glucose Arterial Blood Ionized Calcium Urine WBC (Auto) U Epithel Cells (Auto) Urine Creatinine Random Vancomycin Coronavirus (PCR) Crossmatch 03/26/21 03/26/21 03/26/21 05:15 05:35 09:50 WBC RBC Hgb Hct MCH MCHC RDW Plt Count Lymph % (Auto) [place] # (Auto) Eos # (Auto) Seg Neutrophils % Lymphocytes % (Manual) Eosinophils % (Manual) Basophils % (Manual) Nucleated RBC % Seg Neutrophils # Seg Neutrophils # Man Lymphocytes # (Manual) Monocytes # (Manual) Eosinophils # (Manual) Basophils # (Manual) Percent Retic PT INR Fibrinogen D-Dimer ABG pH POC ABG pCO2 POC ABG pO2 ABG pO2 79.9 L ABG HCO3 ABG O2 Saturation ABG Base Excess ABG Hemoglobin 7.1 L ABG Oxyhemoglobin ABG Sodium ABG Potassium ABG Chloride ABG Glucose Oxyhemoglobin 94.9 L Carboxyhemoglobin Sodium Potassium 3.4 L Chloride Carbon Dioxide BUN 70 H Creatinine 7.3 H Glucose 142 H POC Glucose 130 H Hemoglobin A1c Calcium 8.2 L Phosphorus Magnesium AST ALT Alkaline Phosphatase Lactate Dehydrogenase C-Reactive Protein Total Protein Albumin Triglycerides 254 H Arterial Blood Glucose Arterial Blood Ionized Calcium Urine WBC (Auto) U Epithel Cells (Auto) Urine Creatinine Random Vancomycin Coronavirus (PCR) Crossmatch 03/26/21 03/26/21 03/26/21 11:45 16:36 23:33 WBC RBC Hgb Hct MCH MCHC RDW Plt Count Lymph % (Auto) [place] # (Auto) Eos # (Auto) Seg Neutrophils % Lymphocytes % (Manual) Eosinophils % (Manual) Basophils % (Manual) Nucleated RBC % Seg Neutrophils # Seg Neutrophils # Man Lymphocytes # (Manual) Monocytes # (Manual) Eosinophils # (Manual) Basophils # (Manual) Percent Retic PT INR Fibrinogen D-Dimer ABG pH POC ABG pCO2 POC ABG pO2 ABG pO2 ABG HCO3 ABG O2 Saturation ABG Base Excess ABG Hemoglobin ABG Oxyhemoglobin ABG Sodium ABG Potassium ABG Chloride ABG Glucose Oxyhemoglobin Carboxyhemoglobin Sodium Potassium Chloride Carbon Dioxide BUN Creatinine Glucose POC Glucose 123 H 121 H 120 H Hemoglobin A1c Calcium Phosphorus Magnesium AST ALT Alkaline Phosphatase Lactate Dehydrogenase C-Reactive Protein Total Protein Albumin Triglycerides Arterial Blood Glucose Arterial Blood Ionized Calcium Urine WBC (Auto) U Epithel Cells (Auto) Urine Creatinine Random Vancomycin Coronavirus (PCR) Crossmatch 03/27/21 03/27/21 03/27/21 03:20 04:14 08:20 WBC 13.2 H RBC 2.82 L Hgb 7.9 L Hct 23.5 L MCH MCHC RDW 17.3 H Plt Count 125 L Lymph % (Auto) [place] # (Auto) Eos # (Auto) Seg Neutrophils % Lymphocytes % (Manual) Eosinophils % (Manual) Basophils % (Manual) Nucleated RBC % Seg Neutrophils # Seg Neutrophils # Man Lymphocytes # (Manual) Monocytes # (Manual) Eosinophils # (Manual) Basophils # (Manual) Percent Retic PT INR Fibrinogen D-Dimer ABG pH POC ABG pCO2 50.0 H POC ABG pO2 58.3 L ABG pO2 ABG HCO3 ABG O2 Saturation ABG Base Excess ABG Hemoglobin 11.3 L ABG Oxyhemoglobin 88.5 L ABG Sodium ABG Potassium ABG Chloride ABG Glucose 132 H Oxyhemoglobin Carboxyhemoglobin 0.2 L Sodium Potassium Chloride Carbon Dioxide BUN Creatinine Glucose POC Glucose 119 H Hemoglobin A1c Calcium Phosphorus Magnesium AST ALT Alkaline Phosphatase Lactate Dehydrogenase C-Reactive Protein Total Protein Albumin Triglycerides Arterial Blood Glucose 132 H Arterial Blood Ionized Calcium Urine WBC (Auto) U Epithel Cells (Auto) Urine Creatinine Random Vancomycin Coronavirus (PCR) Crossmatch 03/27/21 03/27/21 03/27/21 08:20 11:39 17:32 WBC RBC Hgb Hct MCH MCHC RDW Plt Count Lymph % (Auto) [place] # (Auto) Eos # (Auto) Seg Neutrophils % Lymphocytes % (Manual) Eosinophils % (Manual) Basophils % (Manual) Nucleated RBC % Seg Neutrophils # Seg Neutrophils # Man Lymphocytes # (Manual) Monocytes # (Manual) Eosinophils # (Manual) Basophils # (Manual) Percent Retic PT INR Fibrinogen D-Dimer ABG pH POC ABG pCO2 POC ABG pO2 ABG pO2 ABG HCO3 ABG O2 Saturation ABG Base Excess ABG Hemoglobin ABG Oxyhemoglobin ABG Sodium ABG Potassium ABG Chloride ABG Glucose Oxyhemoglobin Carboxyhemoglobin Sodium Potassium Chloride Carbon Dioxide BUN 57 H Creatinine 6.8 H Glucose 131 H POC Glucose 121 H 126 H Hemoglobin A1c Calcium Phosphorus Magnesium AST ALT Alkaline Phosphatase Lactate Dehydrogenase C-Reactive Protein Total Protein Albumin Triglycerides Arterial Blood Glucose Arterial Blood Ionized Calcium Urine WBC (Auto) U Epithel Cells (Auto) Urine Creatinine Random Vancomycin Coronavirus (PCR) Crossmatch 03/28/21 03/28/21 03/28/21 00:10 04:45 05:25 WBC RBC Hgb Hct MCH MCHC RDW Plt Count Lymph % (Auto) [place] # (Auto) Eos # (Auto) Seg Neutrophils % Lymphocytes % (Manual) Eosinophils % (Manual) Basophils % (Manual) Nucleated RBC % Seg Neutrophils # Seg Neutrophils # Man Lymphocytes # (Manual) Monocytes # (Manual) Eosinophils # (Manual) Basophils # (Manual) Percent Retic PT INR Fibrinogen D-Dimer ABG pH POC ABG pCO2 POC ABG pO2 ABG pO2 57.6 L ABG HCO3 27.1 H ABG O2 Saturation 88.5 L ABG Base Excess ABG Hemoglobin ABG Oxyhemoglobin ABG Sodium ABG Potassium ABG Chloride ABG Glucose Oxyhemoglobin 86.6 L Carboxyhemoglobin Sodium Potassium Chloride Carbon Dioxide BUN Creatinine Glucose POC Glucose 113 H 121 H Hemoglobin A1c Calcium Phosphorus Magnesium AST ALT Alkaline Phosphatase Lactate Dehydrogenase C-Reactive Protein Total Protein Albumin Triglycerides Arterial Blood Glucose Arterial Blood Ionized Calcium Urine WBC (Auto) U Epithel Cells (Auto) Urine Creatinine Random Vancomycin Coronavirus (PCR) Crossmatch 03/28/21 03/28/21 03/28/21 09:37 09:37 11:48 WBC 16.3 H RBC 2.92 L Hgb 8.2 L Hct 24.8 L MCH MCHC RDW 17.5 H Plt Count Lymph % (Auto) 10.7 L [place] # (Auto) 0.9 H Eos # (Auto) 0.6 H Seg Neutrophils % 80.0 H Lymphocytes % (Manual) Eosinophils % (Manual) Basophils % (Manual) Nucleated RBC % Seg Neutrophils # 13.0 H Seg Neutrophils # Man Lymphocytes # (Manual) Monocytes # (Manual) Eosinophils # (Manual) Basophils # (Manual) Percent Retic PT INR Fibrinogen D-Dimer ABG pH POC ABG pCO2 POC ABG pO2 ABG pO2 ABG HCO3 ABG O2 Saturation ABG Base Excess ABG Hemoglobin ABG Oxyhemoglobin ABG Sodium ABG Potassium ABG Chloride ABG Glucose Oxyhemoglobin Carboxyhemoglobin Sodium Potassium Chloride Carbon Dioxide BUN 61 H Creatinine 7.7 H Glucose 148 H POC Glucose 123 H Hemoglobin A1c Calcium Phosphorus Magnesium AST ALT Alkaline Phosphatase Lactate Dehydrogenase C-Reactive Protein Total Protein Albumin Triglycerides Arterial Blood Glucose Arterial Blood Ionized Calcium Urine WBC (Auto) U Epithel Cells (Auto) Urine Creatinine Random Vancomycin Coronavirus (PCR) Crossmatch 03/28/21 03/28/21 03/28/21 17:33 21:08 23:38 WBC RBC Hgb Hct MCH MCHC RDW Plt Count Lymph % (Auto) [place] # (Auto) Eos # (Auto) Seg Neutrophils % Lymphocytes % (Manual) Eosinophils % (Manual) Basophils % (Manual) Nucleated RBC % Seg Neutrophils # Seg Neutrophils # Man Lymphocytes # (Manual) Monocytes # (Manual) Eosinophils # (Manual) Basophils # (Manual) Percent Retic PT INR Fibrinogen D-Dimer ABG pH POC ABG pCO2 POC ABG pO2 80.5 L ABG pO2 ABG HCO3 ABG O2 Saturation ABG Base Excess ABG Hemoglobin 9.5 L ABG Oxyhemoglobin ABG Sodium 133.3 L ABG Potassium ABG Chloride ABG Glucose 134 H Oxyhemoglobin Carboxyhemoglobin 0.3 L Sodium Potassium Chloride Carbon Dioxide BUN Creatinine Glucose POC Glucose 128 H 112 H Hemoglobin A1c Calcium Phosphorus Magnesium AST ALT Alkaline Phosphatase Lactate Dehydrogenase C-Reactive Protein Total Protein Albumin Triglycerides Arterial Blood Glucose 134 H Arterial Blood Ionized Calcium Urine WBC (Auto) U Epithel Cells (Auto) Urine Creatinine Random Vancomycin Coronavirus (PCR) Crossmatch 03/29/21 03/29/21 03/29/21 04:45 04:45 04:45 WBC 17.5 H RBC 3.15 L Hgb 8.8 L Hct 27.2 L MCH MCHC RDW 17.9 H Plt Count 132 L Lymph % (Auto) [place] # (Auto) Eos # (Auto) Seg Neutrophils % Lymphocytes % (Manual) Eosinophils % (Manual) Basophils % (Manual) Nucleated RBC % Seg Neutrophils # Seg Neutrophils # Man Lymphocytes # (Manual) Monocytes # (Manual) Eosinophils # (Manual) Basophils # (Manual) Percent Retic PT INR Fibrinogen D-Dimer ABG pH POC ABG pCO2 POC ABG pO2 ABG pO2 ABG HCO3 ABG O2 Saturation ABG Base Excess ABG Hemoglobin ABG Oxyhemoglobin ABG Sodium ABG Potassium ABG Chloride ABG Glucose Oxyhemoglobin Carboxyhemoglobin Sodium Potassium Chloride 97.7 L Carbon Dioxide 21 L BUN 78 H Creatinine 9.5 H Glucose 132 H POC Glucose Hemoglobin A1c Calcium Phosphorus Magnesium AST ALT Alkaline Phosphatase Lactate Dehydrogenase C-Reactive Protein Total Protein Albumin 2.2 L Triglycerides 385 H Arterial Blood Glucose Arterial Blood Ionized Calcium Urine WBC (Auto) U Epithel Cells (Auto) Urine Creatinine Random Vancomycin Coronavirus (PCR) Crossmatch 03/29/21 03/29/21 03/29/21 11:35 16:50 21:06 WBC RBC Hgb Hct MCH MCHC RDW Plt Count Lymph % (Auto) [place] # (Auto) Eos # (Auto) Seg Neutrophils % Lymphocytes % (Manual) Eosinophils % (Manual) Basophils % (Manual) Nucleated RBC % Seg Neutrophils # Seg Neutrophils # Man Lymphocytes # (Manual) Monocytes # (Manual) Eosinophils # (Manual) Basophils # (Manual) Percent Retic PT INR Fibrinogen D-Dimer ABG pH POC ABG pCO2 POC ABG pO2 ABG pO2 64.9 L ABG HCO3 ABG O2 Saturation ABG Base Excess -5.2 L ABG Hemoglobin ABG Oxyhemoglobin ABG Sodium ABG Potassium ABG Chloride ABG Glucose Oxyhemoglobin 85.1 L Carboxyhemoglobin Sodium Potassium Chloride Carbon Dioxide BUN Creatinine Glucose POC Glucose 148 H 133 H Hemoglobin A1c Calcium Phosphorus Magnesium AST ALT Alkaline Phosphatase Lactate Dehydrogenase C-Reactive Protein Total Protein Albumin Triglycerides Arterial Blood Glucose Arterial Blood Ionized Calcium Urine WBC (Auto) U Epithel Cells (Auto) Urine Creatinine Random Vancomycin Coronavirus (PCR) Crossmatch 03/29/21 03/30/21 03/30/21 Unknown 00:13 04:00 WBC 15.7 H RBC 3.18 L Hgb 8.6 L Hct 27.3 L MCH 27 L MCHC RDW 18.0 H Plt Count 86 L Lymph % (Auto) [place] # (Auto) Eos # (Auto) Seg Neutrophils % Lymphocytes % (Manual) Eosinophils % (Manual) Basophils % (Manual) Nucleated RBC % Seg Neutrophils # Seg Neutrophils # Man Lymphocytes # (Manual) Monocytes # (Manual) Eosinophils # (Manual) Basophils # (Manual) Percent Retic PT INR Fibrinogen D-Dimer ABG pH 7.258 L POC ABG pCO2 POC ABG pO2 ABG pO2 ABG HCO3 ABG O2 Saturation ABG Base Excess -4.9 L ABG Hemoglobin 8.8 L ABG Oxyhemoglobin ABG Sodium ABG Potassium ABG Chloride ABG Glucose Oxyhemoglobin 93.9 L Carboxyhemoglobin Sodium Potassium Chloride Carbon Dioxide BUN Creatinine Glucose POC Glucose 129 H Hemoglobin A1c Calcium Phosphorus Magnesium AST ALT Alkaline Phosphatase Lactate Dehydrogenase C-Reactive Protein Total Protein Albumin Triglycerides Arterial Blood Glucose Arterial Blood Ionized Calcium Urine WBC (Auto) U Epithel Cells (Auto) Urine Creatinine Random Vancomycin Coronavirus (PCR) Crossmatch 03/30/21 03/30/21 03/30/21 04:00 04:00 06:02 WBC RBC Hgb Hct MCH MCHC RDW Plt Count Lymph % (Auto) [place] # (Auto) Eos # (Auto) Seg Neutrophils % Lymphocytes % (Manual) Eosinophils % (Manual) Basophils % (Manual) Nucleated RBC % Seg Neutrophils # Seg Neutrophils # Man Lymphocytes # (Manual) Monocytes # (Manual) Eosinophils # (Manual) Basophils # (Manual) Percent Retic PT INR Fibrinogen D-Dimer 2607.12 H ABG pH POC ABG pCO2 POC ABG pO2 ABG pO2 ABG HCO3 ABG O2 Saturation ABG Base Excess ABG Hemoglobin ABG Oxyhemoglobin ABG Sodium ABG Potassium ABG Chloride ABG Glucose Oxyhemoglobin Carboxyhemoglobin Sodium 133 L Potassium 5.2 H D Chloride 91.5 L Carbon Dioxide 18 L BUN 101 H Creatinine 10.6 H Glucose 149 H POC Glucose 130 H Hemoglobin A1c Calcium Phosphorus 10.30 H Magnesium AST ALT Alkaline Phosphatase Lactate Dehydrogenase C-Reactive Protein 21.50 H Total Protein Albumin Triglycerides Arterial Blood Glucose Arterial Blood Ionized Calcium Urine WBC (Auto) U Epithel Cells (Auto) Urine Creatinine Random Vancomycin Coronavirus (PCR) Crossmatch 03/30/21 03/30/21 03/30/21 10:36 11:48 17:20 WBC RBC Hgb Hct MCH MCHC RDW Plt Count Lymph % (Auto) [place] # (Auto) Eos # (Auto) Seg Neutrophils % Lymphocytes % (Manual) Eosinophils % (Manual) Basophils % (Manual) Nucleated RBC % Seg Neutrophils # Seg Neutrophils # Man Lymphocytes # (Manual) Monocytes # (Manual) Eosinophils # (Manual) Basophils # (Manual) Percent Retic PT INR Fibrinogen D-Dimer ABG pH 7.224 L POC ABG pCO2 49.1 H POC ABG pO2 61.5 L ABG pO2 ABG HCO3 ABG O2 Saturation ABG Base Excess ABG Hemoglobin 10.2 L ABG Oxyhemoglobin 86.2 L ABG Sodium 129.6 L ABG Potassium 5.4 H ABG Chloride 96.0 L ABG Glucose 161 H Oxyhemoglobin Carboxyhemoglobin Sodium Potassium Chloride Carbon Dioxide BUN Creatinine Glucose POC Glucose 163 H 130 H Hemoglobin A1c Calcium Phosphorus Magnesium AST ALT Alkaline Phosphatase Lactate Dehydrogenase C-Reactive Protein Total Protein Albumin Triglycerides Arterial Blood Glucose 161 H Arterial Blood Ionized Calcium 4.4 L Urine WBC (Auto) U Epithel Cells (Auto) Urine Creatinine Random Vancomycin Coronavirus (PCR) Crossmatch 03/30/21 03/31/21 03/31/21 23:49 00:28 05:20 WBC 17.3 H RBC 2.99 L Hgb 8.2 L Hct 25.3 L MCH 27 L MCHC RDW 18.3 H Plt Count 126 L Lymph % (Auto) [place] # (Auto) Eos # (Auto) Seg Neutrophils % Lymphocytes % (Manual) Eosinophils % (Manual) Basophils % (Manual) Nucleated RBC % Seg Neutrophils # Seg Neutrophils # Man Lymphocytes # (Manual) Monocytes # (Manual) Eosinophils # (Manual) Basophils # (Manual) Percent Retic PT INR Fibrinogen D-Dimer ABG pH 7.249 L POC ABG pCO2 POC ABG pO2 77.7 L ABG pO2 ABG HCO3 ABG O2 Saturation ABG Base Excess ABG Hemoglobin 9.0 L ABG Oxyhemoglobin 92.9 L ABG Sodium 130.4 L ABG Potassium 4.7 H ABG Chloride ABG Glucose 166 H Oxyhemoglobin Carboxyhemoglobin 0.4 L Sodium Potassium Chloride Carbon Dioxide BUN Creatinine Glucose POC Glucose 143 H Hemoglobin A1c Calcium Phosphorus Magnesium AST ALT Alkaline Phosphatase Lactate Dehydrogenase C-Reactive Protein Total Protein Albumin Triglycerides Arterial Blood Glucose 166 H Arterial Blood Ionized Calcium 4.3 L Urine WBC (Auto) U Epithel Cells (Auto) Urine Creatinine Random Vancomycin Coronavirus (PCR) Crossmatch 03/31/21 03/31/21 03/31/21 05:20 06:18 09:44 WBC RBC Hgb Hct MCH MCHC RDW Plt Count Lymph % (Auto) [place] # (Auto) Eos # (Auto) Seg Neutrophils % Lymphocytes % (Manual) Eosinophils % (Manual) Basophils % (Manual) Nucleated RBC % Seg Neutrophils # Seg Neutrophils # Man Lymphocytes # (Manual) Monocytes # (Manual) Eosinophils # (Manual) Basophils # (Manual) Percent Retic PT INR Fibrinogen D-Dimer ABG pH 7.247 L POC ABG pCO2 POC ABG pO2 ABG pO2 ABG HCO3 ABG O2 Saturation 94.4 L ABG Base Excess -5.1 L ABG Hemoglobin 8.2 L ABG Oxyhemoglobin ABG Sodium ABG Potassium ABG Chloride ABG Glucose Oxyhemoglobin 92.4 L Carboxyhemoglobin Sodium Potassium Chloride Carbon Dioxide BUN Creatinine Glucose POC Glucose 155 H Hemoglobin A1c Calcium Phosphorus 8.20 H D Magnesium AST ALT Alkaline Phosphatase Lactate Dehydrogenase C-Reactive Protein Total Protein Albumin Triglycerides Arterial Blood Glucose Arterial Blood Ionized Calcium Urine WBC (Auto) U Epithel Cells (Auto) Urine Creatinine Random Vancomycin Coronavirus (PCR) Crossmatch 03/31/21 03/31/21 03/31/21 09:49 09:55 09:55 WBC RBC Hgb Hct MCH MCHC RDW Plt Count Lymph % (Auto) [place] # (Auto) Eos # (Auto) Seg Neutrophils % Lymphocytes % (Manual) Eosinophils % (Manual) Basophils % (Manual) Nucleated RBC % Seg Neutrophils # Seg Neutrophils # Man Lymphocytes # (Manual) Monocytes # (Manual) Eosinophils # (Manual) Basophils # (Manual) Percent Retic 4.52 H PT 16.5 H INR 1.20 H Fibrinogen D-Dimer ABG pH POC ABG pCO2 POC ABG pO2 ABG pO2 ABG HCO3 ABG O2 Saturation ABG Base Excess ABG Hemoglobin ABG Oxyhemoglobin ABG Sodium ABG Potassium ABG Chloride ABG Glucose Oxyhemoglobin Carboxyhemoglobin Sodium 133 L Potassium Chloride 92.8 L Carbon Dioxide 20 L BUN 87 H Creatinine 8.9 H Glucose 177 H POC Glucose Hemoglobin A1c Calcium 8.2 L Phosphorus Magnesium AST 169 H ALT Alkaline Phosphatase 187 H Lactate Dehydrogenase C-Reactive Protein Total Protein Albumin 2.3 L Triglycerides Arterial Blood Glucose Arterial Blood Ionized Calcium Urine WBC (Auto) U Epithel Cells (Auto) Urine Creatinine Random Vancomycin Coronavirus (PCR) Crossmatch 03/31/21 03/31/21 03/31/21 09:55 09:55 11:25 WBC RBC Hgb Hct MCH MCHC RDW Plt Count Lymph % (Auto) [place] # (Auto) Eos # (Auto) Seg Neutrophils % Lymphocytes % (Manual) Eosinophils % (Manual) Basophils % (Manual) Nucleated RBC % Seg Neutrophils # Seg Neutrophils # Man Lymphocytes # (Manual) Monocytes # (Manual) Eosinophils # (Manual) Basophils # (Manual) Percent Retic PT INR Fibrinogen 491 H D-Dimer ABG pH POC ABG pCO2 POC ABG pO2 ABG pO2 ABG HCO3 ABG O2 Saturation ABG Base Excess ABG Hemoglobin ABG Oxyhemoglobin ABG Sodium ABG Potassium ABG Chloride ABG Glucose Oxyhemoglobin Carboxyhemoglobin Sodium Potassium Chloride Carbon Dioxide BUN Creatinine Glucose POC Glucose 178 H Hemoglobin A1c Calcium Phosphorus Magnesium AST ALT Alkaline Phosphatase Lactate Dehydrogenase 509 H C-Reactive Protein Total Protein Albumin Triglycerides Arterial Blood Glucose Arterial Blood Ionized Calcium Urine WBC (Auto) U Epithel Cells (Auto) Urine Creatinine Random Vancomycin Coronavirus (PCR) Crossmatch 03/31/21 03/31/21 03/31/21 12:30 17:40 21:00 WBC RBC Hgb Hct MCH MCHC RDW Plt Count Lymph % (Auto) [place] # (Auto) Eos # (Auto) Seg Neutrophils % Lymphocytes % (Manual) Eosinophils % (Manual) Basophils % (Manual) Nucleated RBC % Seg Neutrophils # Seg Neutrophils # Man Lymphocytes # (Manual) Monocytes # (Manual) Eosinophils # (Manual) Basophils # (Manual) Percent Retic PT INR Fibrinogen D-Dimer ABG pH 7.235 L 7.216 L POC ABG pCO2 POC ABG pO2 ABG pO2 76.8 L 113.9 H ABG HCO3 ABG O2 Saturation 93.2 L ABG Base Excess -5.3 L -7.3 L ABG Hemoglobin 6.3 L 8.0 L ABG Oxyhemoglobin ABG Sodium ABG Potassium ABG Chloride ABG Glucose Oxyhemoglobin 91.1 L Carboxyhemoglobin Sodium Potassium Chloride Carbon Dioxide BUN Creatinine Glucose POC Glucose 245 H Hemoglobin A1c Calcium Phosphorus Magnesium AST ALT Alkaline Phosphatase Lactate Dehydrogenase C-Reactive Protein Total Protein Albumin Triglycerides Arterial Blood Glucose Arterial Blood Ionized Calcium Urine WBC (Auto) U Epithel Cells (Auto) Urine Creatinine Random Vancomycin Coronavirus (PCR) Crossmatch 04/01/21 04/01/21 04/01/21 00:11 05:09 08:25 WBC RBC Hgb Hct MCH MCHC RDW Plt Count Lymph % (Auto) [place] # (Auto) Eos # (Auto) Seg Neutrophils % Lymphocytes % (Manual) Eosinophils % (Manual) Basophils % (Manual) Nucleated RBC % Seg Neutrophils # Seg Neutrophils # Man Lymphocytes # (Manual) Monocytes # (Manual) Eosinophils # (Manual) Basophils # (Manual) Percent Retic PT INR Fibrinogen D-Dimer ABG pH 7.225 L POC ABG pCO2 POC ABG pO2 ABG pO2 76.4 L ABG HCO3 ABG O2 Saturation 92.2 L ABG Base Excess -7.6 L ABG Hemoglobin 7.3 L ABG Oxyhemoglobin ABG Sodium ABG Potassium ABG Chloride ABG Glucose Oxyhemoglobin 90.2 L Carboxyhemoglobin Sodium Potassium Chloride Carbon Dioxide BUN Creatinine Glucose POC Glucose 209 H 173 H Hemoglobin A1c Calcium Phosphorus Magnesium AST ALT Alkaline Phosphatase Lactate Dehydrogenase C-Reactive Protein Total Protein Albumin Triglycerides Arterial Blood Glucose Arterial Blood Ionized Calcium Urine WBC (Auto) U Epithel Cells (Auto) Urine Creatinine Random Vancomycin Coronavirus (PCR) Crossmatch 04/01/21 04/01/21 04/01/21 12:01 12:05 17:55 WBC RBC Hgb Hct MCH MCHC RDW Plt Count Lymph % (Auto) [place] # (Auto) Eos # (Auto) Seg Neutrophils % Lymphocytes % (Manual) Eosinophils % (Manual) Basophils % (Manual) Nucleated RBC % Seg Neutrophils # Seg Neutrophils # Man Lymphocytes # (Manual) Monocytes # (Manual) Eosinophils # (Manual) Basophils # (Manual) Percent Retic PT INR Fibrinogen D-Dimer ABG pH POC ABG pCO2 POC ABG pO2 ABG pO2 ABG HCO3 ABG O2 Saturation ABG Base Excess ABG Hemoglobin ABG Oxyhemoglobin ABG Sodium ABG Potassium ABG Chloride ABG Glucose Oxyhemoglobin Carboxyhemoglobin Sodium Potassium 5.9 H Chloride Carbon Dioxide BUN Creatinine Glucose POC Glucose 202 H 217 H Hemoglobin A1c Calcium Phosphorus Magnesium AST ALT Alkaline Phosphatase Lactate Dehydrogenase C-Reactive Protein Total Protein Albumin Triglycerides Arterial Blood Glucose Arterial Blood Ionized Calcium Urine WBC (Auto) U Epithel Cells (Auto) Urine Creatinine Random Vancomycin Coronavirus (PCR) Crossmatch 04/01/21 04/01/21 04/01/21 Unknown Unknown 23:59 WBC 27.2 H RBC 3.08 L Hgb 8.4 L Hct 26.0 L MCH 27 L MCHC RDW 18.5 H Plt Count Lymph % (Auto) [place] # (Auto) Eos # (Auto) Seg Neutrophils % Lymphocytes % (Manual) Eosinophils % (Manual) Basophils % (Manual) Nucleated RBC % Seg Neutrophils # Seg Neutrophils # Man Lymphocytes # (Manual) Monocytes # (Manual) Eosinophils # (Manual) Basophils # (Manual) Percent Retic PT INR Fibrinogen D-Dimer ABG pH POC ABG pCO2 POC ABG pO2 ABG pO2 ABG HCO3 ABG O2 Saturation ABG Base Excess ABG Hemoglobin ABG Oxyhemoglobin ABG Sodium ABG Potassium ABG Chloride ABG Glucose Oxyhemoglobin Carboxyhemoglobin Sodium 132 L Potassium 6.6 H* D Chloride 91.3 L Carbon Dioxide 17 L BUN 104 H Creatinine 9.3 H Glucose 199 H POC Glucose 172 H Hemoglobin A1c Calcium 8.3 L Phosphorus Magnesium AST 236 H ALT 93 H Alkaline Phosphatase 191 H Lactate Dehydrogenase C-Reactive Protein Total Protein Albumin 2.4 L Triglycerides Arterial Blood Glucose Arterial Blood Ionized Calcium Urine WBC (Auto) U Epithel Cells (Auto) Urine Creatinine Random Vancomycin Coronavirus (PCR) Crossmatch 04/02/21 04/02/21 04/02/21 04:00 04:00 05:00 WBC 31.0 H RBC 2.93 L Hgb 8.0 L Hct 24.7 L MCH 27 L MCHC RDW 19.2 H Plt Count 131 L Lymph % (Auto) [place] # (Auto) Eos # (Auto) Seg Neutrophils % Lymphocytes % (Manual) Eosinophils % (Manual) Basophils % (Manual) Nucleated RBC % Seg Neutrophils # Seg Neutrophils # Man Lymphocytes # (Manual) Monocytes # (Manual) Eosinophils # (Manual) Basophils # (Manual) Percent Retic PT 16.0 H INR 1.16 H Fibrinogen D-Dimer ABG pH POC ABG pCO2 POC ABG pO2 ABG pO2 ABG HCO3 ABG O2 Saturation ABG Base Excess ABG Hemoglobin ABG Oxyhemoglobin ABG Sodium ABG Potassium ABG Chloride ABG Glucose Oxyhemoglobin Carboxyhemoglobin Sodium 135 L Potassium 5.3 H Chloride 96.1 L Carbon Dioxide 18 L BUN 80 H Creatinine 6.8 H Glucose 174 H POC Glucose Hemoglobin A1c Calcium 7.7 L Phosphorus Magnesium AST 106 H ALT 60 H Alkaline Phosphatase Lactate Dehydrogenase C-Reactive Protein Total Protein 5.9 L Albumin 3.5 L Triglycerides 579 H Arterial Blood Glucose Arterial Blood Ionized Calcium Urine WBC (Auto) U Epithel Cells (Auto) Urine Creatinine Random Vancomycin Coronavirus (PCR) Crossmatch 04/02/21 04/02/21 04/02/21 05:09 08:55 11:06 WBC RBC Hgb Hct MCH MCHC RDW Plt Count Lymph % (Auto) [place] # (Auto) Eos # (Auto) Seg Neutrophils % Lymphocytes % (Manual) Eosinophils % (Manual) Basophils % (Manual) Nucleated RBC % Seg Neutrophils # Seg Neutrophils # Man Lymphocytes # (Manual) Monocytes # (Manual) Eosinophils # (Manual) Basophils # (Manual) Percent Retic PT INR Fibrinogen D-Dimer ABG pH 7.188 L POC ABG pCO2 58.3 H POC ABG pO2 132.8 H ABG pO2 ABG HCO3 ABG O2 Saturation ABG Base Excess ABG Hemoglobin 8.4 L ABG Oxyhemoglobin ABG Sodium ABG Potassium 5.0 H ABG Chloride 97.0 L ABG Glucose 156 H Oxyhemoglobin Carboxyhemoglobin 0.4 L Sodium Potassium Chloride Carbon Dioxide BUN Creatinine Glucose POC Glucose 148 H 167 H Hemoglobin A1c Calcium Phosphorus Magnesium AST ALT Alkaline Phosphatase Lactate Dehydrogenase C-Reactive Protein Total Protein Albumin Triglycerides Arterial Blood Glucose 156 H Arterial Blood Ionized Calcium 4.2 L Urine WBC (Auto) U Epithel Cells (Auto) Urine Creatinine Random Vancomycin Coronavirus (PCR) Crossmatch 04/02/21 04/02/21 04/03/21 17:57 20:40 00:28 WBC RBC Hgb Hct MCH MCHC RDW Plt Count Lymph % (Auto) [place] # (Auto) Eos # (Auto) Seg Neutrophils % Lymphocytes % (Manual) Eosinophils % (Manual) Basophils % (Manual) Nucleated RBC % Seg Neutrophils # Seg Neutrophils # Man Lymphocytes # (Manual) Monocytes # (Manual) Eosinophils # (Manual) Basophils # (Manual) Percent Retic PT INR Fibrinogen D-Dimer ABG pH POC ABG pCO2 POC ABG pO2 ABG pO2 111.9 H ABG HCO3 18.9 L ABG O2 Saturation ABG Base Excess -9.9 L ABG Hemoglobin ABG Oxyhemoglobin ABG Sodium ABG Potassium ABG Chloride ABG Glucose Oxyhemoglobin Carboxyhemoglobin Sodium Potassium Chloride Carbon Dioxide BUN Creatinine Glucose POC Glucose 205 H 217 H Hemoglobin A1c Calcium Phosphorus Magnesium AST ALT Alkaline Phosphatase Lactate Dehydrogenase C-Reactive Protein Total Protein Albumin Triglycerides Arterial Blood Glucose Arterial Blood Ionized Calcium Urine WBC (Auto) U Epithel Cells (Auto) Urine Creatinine Random Vancomycin Coronavirus (PCR) Crossmatch 04/03/21 04/03/21 04/03/21 03:39 04:30 04:30 WBC 31.1 H RBC 2.78 L Hgb 8.0 L Hct 24.0 L MCH MCHC RDW 19.0 H Plt Count Lymph % (Auto) [place] # (Auto) Eos # (Auto) Seg Neutrophils % Lymphocytes % (Manual) Eosinophils % (Manual) 27.0 H Basophils % (Manual) 2.0 H Nucleated RBC % Seg Neutrophils # Seg Neutrophils # Man 13.7 H Lymphocytes # (Manual) 8.4 H Monocytes # (Manual) Eosinophils # (Manual) 8.4 H Basophils # (Manual) 0.6 H Percent Retic PT INR Fibrinogen D-Dimer ABG pH POC ABG pCO2 POC ABG pO2 ABG pO2 ABG HCO3 ABG O2 Saturation ABG Base Excess ABG Hemoglobin ABG Oxyhemoglobin ABG Sodium ABG Potassium ABG Chloride ABG Glucose Oxyhemoglobin Carboxyhemoglobin Sodium 132 L Potassium 5.8 H Chloride 94.5 L Carbon Dioxide 16 L BUN 97 H Creatinine 7.7 H Glucose 230 H POC Glucose 201 H Hemoglobin A1c Calcium 7.6 L Phosphorus Magnesium AST 47 H ALT Alkaline Phosphatase 146 H Lactate Dehydrogenase C-Reactive Protein Total Protein 5.2 L Albumin 3.4 L Triglycerides Arterial Blood Glucose Arterial Blood Ionized Calcium Urine WBC (Auto) U Epithel Cells (Auto) Urine Creatinine Random Vancomycin Coronavirus (PCR) Crossmatch 04/03/21 04/03/21 04/03/21 04:30 08:31 11:29 WBC RBC Hgb Hct MCH MCHC RDW Plt Count Lymph % (Auto) [place] # (Auto) Eos # (Auto) Seg Neutrophils % Lymphocytes % (Manual) Eosinophils % (Manual) Basophils % (Manual) Nucleated RBC % Seg Neutrophils # Seg Neutrophils # Man Lymphocytes # (Manual) Monocytes # (Manual) Eosinophils # (Manual) Basophils # (Manual) Percent Retic PT INR Fibrinogen D-Dimer ABG pH 7.195 L* POC ABG pCO2 POC ABG pO2 ABG pO2 102.6 H ABG HCO3 ABG O2 Saturation ABG Base Excess -7.2 L ABG Hemoglobin 8.0 L ABG Oxyhemoglobin ABG Sodium ABG Potassium ABG Chloride ABG Glucose Oxyhemoglobin 94.7 L Carboxyhemoglobin Sodium Potassium Chloride Carbon Dioxide BUN Creatinine Glucose POC Glucose 230 H Hemoglobin A1c Calcium Phosphorus 10.30 H Magnesium AST ALT Alkaline Phosphatase Lactate Dehydrogenase C-Reactive Protein Total Protein Albumin Triglycerides Arterial Blood Glucose Arterial Blood Ionized Calcium Urine WBC (Auto) U Epithel Cells (Auto) Urine Creatinine Random Vancomycin Coronavirus (PCR) Crossmatch 04/03/21 04/03/21 04/04/21 16:53 20:45 05:00 WBC 28.8 H RBC 2.64 L Hgb 8.7 L Hct 22.2 L MCH 33 H MCHC 39 H* RDW 18.6 H Plt Count Lymph % (Auto) [place] # (Auto) Eos # (Auto) Seg Neutrophils % Lymphocytes % (Manual) Eosinophils % (Manual) Basophils % (Manual) Nucleated RBC % Seg Neutrophils # Seg Neutrophils # Man Lymphocytes # (Manual) Monocytes # (Manual) Eosinophils # (Manual) Basophils # (Manual) Percent Retic PT INR Fibrinogen D-Dimer ABG pH POC ABG pCO2 POC ABG pO2 ABG pO2 ABG HCO3 ABG O2 Saturation ABG Base Excess ABG Hemoglobin ABG Oxyhemoglobin ABG Sodium ABG Potassium ABG Chloride ABG Glucose Oxyhemoglobin 94.8 L Carboxyhemoglobin Sodium Potassium Chloride Carbon Dioxide BUN Creatinine Glucose POC Glucose 227 H Hemoglobin A1c Calcium Phosphorus Magnesium AST ALT Alkaline Phosphatase Lactate Dehydrogenase C-Reactive Protein Total Protein Albumin Triglycerides Arterial Blood Glucose Arterial Blood Ionized Calcium Urine WBC (Auto) U Epithel Cells (Auto) Urine Creatinine Random Vancomycin Coronavirus (PCR) Crossmatch 04/04/21 04/04/21 04/04/21 05:29 07:55 09:20 WBC RBC Hgb Hct MCH MCHC RDW Plt Count Lymph % (Auto) [place] # (Auto) Eos # (Auto) Seg Neutrophils % Lymphocytes % (Manual) Eosinophils % (Manual) Basophils % (Manual) Nucleated RBC % Seg Neutrophils # Seg Neutrophils # Man Lymphocytes # (Manual) Monocytes # (Manual) Eosinophils # (Manual) Basophils # (Manual) Percent Retic PT INR Fibrinogen D-Dimer ABG pH POC ABG pCO2 POC ABG pO2 ABG pO2 ABG HCO3 ABG O2 Saturation ABG Base Excess ABG Hemoglobin ABG Oxyhemoglobin ABG Sodium ABG Potassium ABG Chloride ABG Glucose Oxyhemoglobin Carboxyhemoglobin Sodium 133 L Potassium Chloride 91.0 L Carbon Dioxide 20 L BUN 75 H Creatinine 4.7 H Glucose 184 H POC Glucose 133 H Hemoglobin A1c Calcium 7.3 L Phosphorus Magnesium AST < 5 L ALT < 5 L Alkaline Phosphatase 200 H Lactate Dehydrogenase C-Reactive Protein Total Protein 5.6 L Albumin 2.9 L Triglycerides Arterial Blood Glucose Arterial Blood Ionized Calcium Urine WBC (Auto) U Epithel Cells (Auto) Urine Creatinine Random Vancomycin Coronavirus (PCR) Crossmatch See Detail 04/04/21 04/04/21 04/04/21 12:01 14:06 17:05 WBC RBC Hgb Hct MCH MCHC RDW Plt Count Lymph % (Auto) [place] # (Auto) Eos # (Auto) Seg Neutrophils % Lymphocytes % (Manual) Eosinophils % (Manual) Basophils % (Manual) Nucleated RBC % Seg Neutrophils # Seg Neutrophils # Man Lymphocytes # (Manual) Monocytes # (Manual) Eosinophils # (Manual) Basophils # (Manual) Percent Retic PT INR Fibrinogen D-Dimer ABG pH 7.162 L* POC ABG pCO2 POC ABG pO2 ABG pO2 91.3 H ABG HCO3 ABG O2 Saturation 94.8 L ABG Base Excess -4.0 L ABG Hemoglobin 7.6 L ABG Oxyhemoglobin ABG Sodium ABG Potassium ABG Chloride ABG Glucose Oxyhemoglobin 92.4 L Carboxyhemoglobin Sodium Potassium Chloride Carbon Dioxide BUN Creatinine Glucose POC Glucose 199 H 166 H Hemoglobin A1c Calcium Phosphorus Magnesium AST ALT Alkaline Phosphatase Lactate Dehydrogenase C-Reactive Protein Total Protein Albumin Triglycerides Arterial Blood Glucose Arterial Blood Ionized Calcium Urine WBC (Auto) U Epithel Cells (Auto) Urine Creatinine Random Vancomycin Coronavirus (PCR) Crossmatch 04/04/21 04/04/21 04/05/21 21:14 23:30 05:20 WBC RBC Hgb Hct MCH MCHC RDW Plt Count Lymph % (Auto) [place] # (Auto) Eos # (Auto) Seg Neutrophils % Lymphocytes % (Manual) Eosinophils % (Manual) Basophils % (Manual) Nucleated RBC % Seg Neutrophils # Seg Neutrophils # Man Lymphocytes # (Manual) Monocytes # (Manual) Eosinophils # (Manual) Basophils # (Manual) Percent Retic PT INR Fibrinogen D-Dimer ABG pH 7.257 L POC ABG pCO2 POC ABG pO2 ABG pO2 73.8 L ABG HCO3 ABG O2 Saturation 91.6 L ABG Base Excess -2.7 L ABG Hemoglobin 8.6 L ABG Oxyhemoglobin ABG Sodium ABG Potassium ABG Chloride ABG Glucose Oxyhemoglobin 89.1 L Carboxyhemoglobin Sodium 131 L Potassium Chloride 91.2 L Carbon Dioxide 17 L BUN 85 H Creatinine 5.1 H Glucose 183 H POC Glucose 158 H Hemoglobin A1c Calcium 7.4 L Phosphorus Magnesium AST ALT Alkaline Phosphatase 190 H Lactate Dehydrogenase 394 H C-Reactive Protein Total Protein 5.8 L Albumin 2.7 L Triglycerides Arterial Blood Glucose Arterial Blood Ionized Calcium Urine WBC (Auto) U Epithel Cells (Auto) Urine Creatinine Random Vancomycin Coronavirus (PCR) Crossmatch 04/05/21 04/05/21 04/05/21 05:20 05:20 05:24 WBC 30.8 H RBC 2.83 L Hgb 8.4 L Hct 24.4 L MCH MCHC 35 H RDW 18.9 H Plt Count Lymph % (Auto) [place] # (Auto) Eos # (Auto) Seg Neutrophils % Lymphocytes % (Manual) Eosinophils % (Manual) Basophils % (Manual) Nucleated RBC % Seg Neutrophils # Seg Neutrophils # Man Lymphocytes # (Manual) Monocytes # (Manual) Eosinophils # (Manual) Basophils # (Manual) Percent Retic PT INR Fibrinogen D-Dimer ABG pH POC ABG pCO2 POC ABG pO2 ABG pO2 ABG HCO3 ABG O2 Saturation ABG Base Excess ABG Hemoglobin ABG Oxyhemoglobin ABG Sodium ABG Potassium ABG Chloride ABG Glucose Oxyhemoglobin Carboxyhemoglobin Sodium Potassium Chloride Carbon Dioxide BUN Creatinine Glucose POC Glucose 162 H Hemoglobin A1c Calcium Phosphorus 9.40 H Magnesium AST ALT Alkaline Phosphatase Lactate Dehydrogenase C-Reactive Protein Total Protein Albumin Triglycerides Arterial Blood Glucose Arterial Blood Ionized Calcium Urine WBC (Auto) U Epithel Cells (Auto) Urine Creatinine Random Vancomycin Coronavirus (PCR) Crossmatch 04/05/21 04/05/21 04/05/21 11:31 12:23 21:40 WBC RBC Hgb Hct MCH MCHC RDW Plt Count Lymph % (Auto) [place] # (Auto) Eos # (Auto) Seg Neutrophils % Lymphocytes % (Manual) Eosinophils % (Manual) Basophils % (Manual) Nucleated RBC % Seg Neutrophils # Seg Neutrophils # Man Lymphocytes # (Manual) Monocytes # (Manual) Eosinophils # (Manual) Basophils # (Manual) Percent Retic PT INR Fibrinogen D-Dimer ABG pH 7.325 L POC ABG pCO2 POC ABG pO2 ABG pO2 65.6 L ABG HCO3 ABG O2 Saturation 91.2 L ABG Base Excess ABG Hemoglobin 6.7 L ABG Oxyhemoglobin ABG Sodium ABG Potassium ABG Chloride ABG Glucose Oxyhemoglobin 89.0 L Carboxyhemoglobin Sodium Potassium Chloride Carbon Dioxide BUN Creatinine Glucose POC Glucose 196 H 190 H Hemoglobin A1c Calcium Phosphorus Magnesium AST ALT Alkaline Phosphatase Lactate Dehydrogenase C-Reactive Protein Total Protein Albumin Triglycerides Arterial Blood Glucose Arterial Blood Ionized Calcium Urine WBC (Auto) U Epithel Cells (Auto) Urine Creatinine Random Vancomycin Coronavirus (PCR) Crossmatch 04/05/21 04/06/21 04/06/21 23:53 05:35 06:00 WBC RBC Hgb Hct MCH MCHC RDW Plt Count Lymph % (Auto) [place] # (Auto) Eos # (Auto) Seg Neutrophils % Lymphocytes % (Manual) Eosinophils % (Manual) Basophils % (Manual) Nucleated RBC % Seg Neutrophils # Seg Neutrophils # Man Lymphocytes # (Manual) Monocytes # (Manual) Eosinophils # (Manual) Basophils # (Manual) Percent Retic PT INR Fibrinogen D-Dimer ABG pH POC ABG pCO2 POC ABG pO2 ABG pO2 ABG HCO3 ABG O2 Saturation ABG Base Excess ABG Hemoglobin ABG Oxyhemoglobin ABG Sodium ABG Potassium ABG Chloride ABG Glucose Oxyhemoglobin Carboxyhemoglobin Sodium 132 L Potassium Chloride 90.7 L Carbon Dioxide 21 L BUN 74 H Creatinine 4.3 H Glucose 156 H POC Glucose 192 H 139 H Hemoglobin A1c Calcium 7.9 L Phosphorus 6.90 H D Magnesium AST < 5 L ALT < 5 L Alkaline Phosphatase 185 H Lactate Dehydrogenase C-Reactive Protein Total Protein 5.7 L Albumin 2.5 L Triglycerides Arterial Blood Glucose Arterial Blood Ionized Calcium Urine WBC (Auto) U Epithel Cells (Auto) Urine Creatinine Random Vancomycin Coronavirus (PCR) Crossmatch 04/06/21 04/06/21 04/06/21 06:00 11:27 18:01 WBC 26.7 H RBC 2.39 L Hgb 6.9 L Hct 20.1 L MCH MCHC RDW 18.7 H Plt Count Lymph % (Auto) [place] # (Auto) Eos # (Auto) Seg Neutrophils % Lymphocytes % (Manual) Eosinophils % (Manual) Basophils % (Manual) Nucleated RBC % Seg Neutrophils # Seg Neutrophils # Man Lymphocytes # (Manual) Monocytes # (Manual) Eosinophils # (Manual) Basophils # (Manual) Percent Retic PT INR Fibrinogen D-Dimer ABG pH POC ABG pCO2 POC ABG pO2 ABG pO2 ABG HCO3 ABG O2 Saturation ABG Base Excess ABG Hemoglobin ABG Oxyhemoglobin ABG Sodium ABG Potassium ABG Chloride ABG Glucose Oxyhemoglobin Carboxyhemoglobin Sodium Potassium Chloride Carbon Dioxide BUN Creatinine Glucose POC Glucose 166 H 159 H Hemoglobin A1c Calcium Phosphorus Magnesium AST ALT Alkaline Phosphatase Lactate Dehydrogenase C-Reactive Protein Total Protein Albumin Triglycerides Arterial Blood Glucose Arterial Blood Ionized Calcium Urine WBC (Auto) U Epithel Cells (Auto) Urine Creatinine Random Vancomycin Coronavirus (PCR) Crossmatch 04/06/21 04/06/21 04/06/21 20:50 23:43 Unknown WBC RBC Hgb Hct MCH MCHC RDW Plt Count Lymph % (Auto) [place] # (Auto) Eos # (Auto) Seg Neutrophils % Lymphocytes % (Manual) Eosinophils % (Manual) Basophils % (Manual) Nucleated RBC % Seg Neutrophils # Seg Neutrophils # Man Lymphocytes # (Manual) Monocytes # (Manual) Eosinophils # (Manual) Basophils # (Manual) Percent Retic PT INR Fibrinogen D-Dimer ABG pH 7.303 L POC ABG pCO2 POC ABG pO2 67.9 L ABG pO2 ABG HCO3 ABG O2 Saturation ABG Base Excess ABG Hemoglobin 7.6 L ABG Oxyhemoglobin 90.2 L ABG Sodium 128.6 L ABG Potassium ABG Chloride 97.0 L ABG Glucose 154 H Oxyhemoglobin Carboxyhemoglobin Sodium Potassium Chloride Carbon Dioxide BUN Creatinine Glucose POC Glucose 137 H Hemoglobin A1c Calcium Phosphorus Magnesium AST ALT Alkaline Phosphatase Lactate Dehydrogenase C-Reactive Protein Total Protein Albumin Triglycerides Arterial Blood Glucose 154 H Arterial Blood Ionized Calcium Urine WBC (Auto) 148.0 H U Epithel Cells (Auto) 102.0 H Urine Creatinine Random Vancomycin Coronavirus (PCR) Crossmatch 04/07/21 04/07/21 04/07/21 03:50 03:50 03:50 WBC 26.7 H RBC 2.66 L Hgb 7.6 L Hct 23.2 L MCH MCHC RDW 18.5 H Plt Count Lymph % (Auto) [place] # (Auto) Eos # (Auto) Seg Neutrophils % Lymphocytes % (Manual) 10.0 L Eosinophils % (Manual) 19.0 H Basophils % (Manual) Nucleated RBC % 2.0 H Seg Neutrophils # Seg Neutrophils # Man 17.9 H Lymphocytes # (Manual) Monocytes # (Manual) 1.1 H Eosinophils # (Manual) 5.1 H Basophils # (Manual) Percent Retic PT INR Fibrinogen D-Dimer 2178 H ABG pH POC ABG pCO2 POC ABG pO2 ABG pO2 ABG HCO3 ABG O2 Saturation ABG Base Excess ABG Hemoglobin ABG Oxyhemoglobin ABG Sodium ABG Potassium ABG Chloride ABG Glucose Oxyhemoglobin Carboxyhemoglobin Sodium 130 L Potassium Chloride 91.1 L Carbon Dioxide 19 L BUN 92 H Creatinine 4.2 H Glucose 213 H POC Glucose Hemoglobin A1c Calcium 7.8 L Phosphorus Magnesium AST ALT Alkaline Phosphatase Lactate Dehydrogenase C-Reactive Protein Total Protein Albumin Triglycerides Arterial Blood Glucose Arterial Blood Ionized Calcium Urine WBC (Auto) U Epithel Cells (Auto) Urine Creatinine Random Vancomycin Coronavirus (PCR) Crossmatch 04/07/21 04/07/21 04/07/21 04:00 05:42 11:10 WBC RBC Hgb Hct MCH MCHC RDW Plt Count Lymph % (Auto) [place] # (Auto) Eos # (Auto) Seg Neutrophils % Lymphocytes % (Manual) Eosinophils % (Manual) Basophils % (Manual) Nucleated RBC % Seg Neutrophils # Seg Neutrophils # Man Lymphocytes # (Manual) Monocytes # (Manual) Eosinophils # (Manual) Basophils # (Manual) Percent Retic PT INR Fibrinogen D-Dimer ABG pH POC ABG pCO2 POC ABG pO2 ABG pO2 ABG HCO3 ABG O2 Saturation ABG Base Excess ABG Hemoglobin ABG Oxyhemoglobin ABG Sodium ABG Potassium ABG Chloride ABG Glucose Oxyhemoglobin Carboxyhemoglobin Sodium 129 L Potassium 5.1 H Chloride 89.6 L Carbon Dioxide 18 L BUN 94 H Creatinine 4.2 H Glucose 213 H POC Glucose 177 H 136 H Hemoglobin A1c Calcium 7.9 L Phosphorus Magnesium AST ALT Alkaline Phosphatase 167 H Lactate Dehydrogenase C-Reactive Protein Total Protein Albumin 2.8 L Triglycerides Arterial Blood Glucose Arterial Blood Ionized Calcium Urine WBC (Auto) U Epithel Cells (Auto) Urine Creatinine Random Vancomycin Coronavirus (PCR) Crossmatch 04/07/21 04/07/21 04/08/21 16:19 21:30 02:32 WBC RBC Hgb Hct MCH MCHC RDW Plt Count Lymph % (Auto) [place] # (Auto) Eos # (Auto) Seg Neutrophils % Lymphocytes % (Manual) Eosinophils % (Manual) Basophils % (Manual) Nucleated RBC % Seg Neutrophils # Seg Neutrophils # Man Lymphocytes # (Manual) Monocytes # (Manual) Eosinophils # (Manual) Basophils # (Manual) Percent Retic PT INR Fibrinogen D-Dimer ABG pH 7.209 L POC ABG pCO2 64.8 H POC ABG pO2 ABG pO2 ABG HCO3 ABG O2 Saturation ABG Base Excess ABG Hemoglobin 7.9 L ABG Oxyhemoglobin 93.8 L ABG Sodium 128.8 L ABG Potassium 4.6 H ABG Chloride 97.0 L ABG Glucose 170 H Oxyhemoglobin Carboxyhemoglobin 1.6 H Sodium Potassium Chloride Carbon Dioxide BUN Creatinine Glucose POC Glucose 155 H 141 H Hemoglobin A1c Calcium Phosphorus Magnesium AST ALT Alkaline Phosphatase Lactate Dehydrogenase C-Reactive Protein Total Protein Albumin Triglycerides Arterial Blood Glucose 170 H Arterial Blood Ionized Calcium 4.2 L Urine WBC (Auto) U Epithel Cells (Auto) Urine Creatinine Random Vancomycin Coronavirus (PCR) Crossmatch 04/08/21 04/08/21 04/08/21 04:00 04:40 04:40 WBC 23.7 H RBC 2.51 L Hgb 6.9 L Hct 22.1 L MCH 27 L MCHC RDW 18.4 H Plt Count Lymph % (Auto) [place] # (Auto) Eos # (Auto) Seg Neutrophils % Lymphocytes % (Manual) Eosinophils % (Manual) Basophils % (Manual) Nucleated RBC % Seg Neutrophils # Seg Neutrophils # Man Lymphocytes # (Manual) Monocytes # (Manual) Eosinophils # (Manual) Basophils # (Manual) Percent Retic PT INR Fibrinogen D-Dimer 2696.79 H ABG pH POC ABG pCO2 POC ABG pO2 ABG pO2 ABG HCO3 ABG O2 Saturation ABG Base Excess ABG Hemoglobin ABG Oxyhemoglobin ABG Sodium ABG Potassium ABG Chloride ABG Glucose Oxyhemoglobin Carboxyhemoglobin Sodium 133 L Potassium 5.5 H Chloride 93.5 L Carbon Dioxide BUN 78 H Creatinine 3.5 H Glucose 171 H POC Glucose Hemoglobin A1c Calcium 8.1 L Phosphorus 9.30 H Magnesium AST ALT Alkaline Phosphatase Lactate Dehydrogenase C-Reactive Protein 26.10 H Total Protein Albumin Triglycerides 487 H Arterial Blood Glucose Arterial Blood Ionized Calcium Urine WBC (Auto) U Epithel Cells (Auto) Urine Creatinine Random Vancomycin Coronavirus (PCR) Crossmatch 04/08/21 04/08/21 04/08/21 09:55 11:37 13:55 WBC RBC Hgb Hct MCH MCHC RDW Plt Count Lymph % (Auto) [place] # (Auto) Eos # (Auto) Seg Neutrophils % Lymphocytes % (Manual) Eosinophils % (Manual) Basophils % (Manual) Nucleated RBC % Seg Neutrophils # Seg Neutrophils # Man Lymphocytes # (Manual) Monocytes # (Manual) Eosinophils # (Manual) Basophils # (Manual) Percent Retic PT INR Fibrinogen D-Dimer ABG pH 7.114 L* POC ABG pCO2 POC ABG pO2 ABG pO2 75.9 L ABG HCO3 26.2 H ABG O2 Saturation 90.6 L ABG Base Excess -3.6 L ABG Hemoglobin 8.2 L ABG Oxyhemoglobin ABG Sodium ABG Potassium ABG Chloride ABG Glucose Oxyhemoglobin 88.0 L Carboxyhemoglobin Sodium Potassium Chloride Carbon Dioxide BUN Creatinine Glucose POC Glucose 156 H Hemoglobin A1c Calcium Phosphorus Magnesium AST ALT Alkaline Phosphatase Lactate Dehydrogenase C-Reactive Protein Total Protein Albumin Triglycerides Arterial Blood Glucose Arterial Blood Ionized Calcium Urine WBC (Auto) U Epithel Cells (Auto) Urine Creatinine Random Vancomycin Coronavirus (PCR) Crossmatch See Detail Chest x-ray: image reviewed (increased pulmonary infiltrates / edema) Allied health notes reviewed: nursing
--- NOTE | 2021-04-08 16:18 | Progress Note ---
Assessment and Plan Cultures: SARS CoV2 PCR: Positive 03/13/2021 blood culture: No growth Resp cultures 03/14/2021: MSSA 03/23/2021 blood culture: No growth 03/23/2021 sputum culture: Usual respiratory maury 03/29/2021 blood culture: no growth 04/06/2021 blood culture: In process 04/06/2021 endotracheal aspirate culture: E faecalis 04/06/2021 urine culture: No growth A/P: 31-year-old female with asthma, morbid obesity, Crohn's disease admitted with cough and shortness of breath: #Septic shock: s/p abx. Persistently febrile, on multiple pressors. Has previously completed Ancef followed by Cefepime, and now on Aztreonam, Vancomycin and levofloxacin. #Bilateral pneumonia: Secondary to COVID-19. Severe disease, then developed MSSA in the lungs. s/p Actemra 03/15/2021, completed steroids for COVID. D-dimer very high initially, which has shown improvement. #Acute hypoxic respiratory failure: on the vent. #Rash with eosinophilia: Question of drug reaction, remains off Cefepime. 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 #Acute renal failure: progressive. Nephrology following, on HD. #Acute asthma exacerbation #Morbid obesity Recs: -f/u new cultures: blood, tracheal aspirate and urine -continue IV Aztreonam, vancomycin and levofloxacin -on steroids per ICU -consider CT chest, abdomen and pelvis when feasible -extremely poor prognosis Shantel Biggs MD [facility] ([facility]) Office [phone] Subjective Date of service: 04/08/21 Principal diagnosis: Ac hypoxemic resp failure; AE-Asthma; SAI; Crohn's; COVID-19; Pneumonia Interval history: Remains on the ventilator FiO2 60%, persistent high fever, tachycardic. Objective - Exam Narrative Exam: General appearance: Sedated, intubated Eyes: anicteric sclerae, moist conjunctivae; no lid-lag; PERRLA HENT: Normocephalic, Atraumatic; normal external ears, nares open, oropharynx ET tube limited Neck: supple, tracheal midline, no JVD Lungs: Diminished breath sounds bilaterally CV: Tachycardic Abdomen: Obese soft Extremities: Marked bilateral upper extremity and lower extremity edema Skin: Extensive desquamative rash of the upper extremities and shoulders Psych: Sedated Neuro: Sedated - Constitutional Vitals: Vital Signs Temp Pulse Resp BP Pulse Ox 101.8 F H 124 H 30 H 82/58 96 04/08/21 08:00 04/08/21 15:46 04/08/21 14:06 04/08/21 15:46 04/08/21 15:46 Temperature -Last 24 Hours Temperature 101.8 F Temperature 101.5 F Temperature 101.5 F Temperature 100 F Temperature 101.0 F Temperature 99.3 F - Labs CBC & Chem 7: 04/08/21 04:40 04/08/21 04:00 Labs: Abnormal lab results 04/07/21 04/07/21 04/07/21 Range/Units 05:42 16:19 21:30 WBC (4.5-11.0) K/mm3 RBC (3.65-5.03) M/mm3 Hgb (10.1-14.3) gm/dl Hct (30.3-42.9) % MCH (28-32) pg RDW (13.2-15.2) % D-Dimer (0-234) ng/mlDDU ABG pH 7.209 L (7.320-7.450) POC ABG pCO2 64.8 H (32.0-48.0) mmHg ABG pO2 (80.0-90.0) mm Hg ABG HCO3 (20.0-26.0) mmol/L ABG O2 Saturation (95.0-99.0) % ABG Base Excess (-2.0-3.0) mmol/L ABG Hemoglobin 7.9 L (12.0-17.5) ABG Oxyhemoglobin 93.8 L (94-98) ABG Sodium 128.8 L (136.0-145.0) mmol/L ABG Potassium 4.6 H (3.40-4.50) mmol/L ABG Chloride 97.0 L (98-107) mmol/L ABG Glucose 170 H (65-95) mg/dL Oxyhemoglobin (95.0-99.0) % Carboxyhemoglobin 1.6 H (0.5-1.5) Sodium (137-145) mmol/L Potassium (3.6-5.0) mmol/L Chloride (98-107) mmol/L BUN (7-17) mg/dL Creatinine (0.6-1.2) mg/dL Glucose (65-100) mg/dL POC Glucose 177 H 155 H (70-105) mg/dL Calcium (8.4-10.2) mg/dL Phosphorus (2.5-4.5) mg/dL C-Reactive Protein (0.00-1.30) mg/dL Triglycerides (2-149) mg/dL Arterial Blood Glucose 170 H (65-95) mg/dL Arterial Blood Ionized Calcium 4.2 L (4.6-5.3) mg/dL Crossmatch 04/08/21 04/08/21 04/08/21 Range/Units 02:32 04:00 04:40 WBC (4.5-11.0) K/mm3 RBC (3.65-5.03) M/mm3 Hgb (10.1-14.3) gm/dl Hct (30.3-42.9) % MCH (28-32) pg RDW (13.2-15.2) % D-Dimer 2696.79 H (0-234) ng/mlDDU ABG pH (7.320-7.450) POC ABG pCO2 (32.0-48.0) mmHg ABG pO2 (80.0-90.0) mm Hg ABG HCO3 (20.0-26.0) mmol/L ABG O2 Saturation (95.0-99.0) % ABG Base Excess (-2.0-3.0) mmol/L ABG Hemoglobin (12.0-17.5) ABG Oxyhemoglobin (94-98) ABG Sodium (136.0-145.0) mmol/L ABG Potassium (3.40-4.50) mmol/L ABG Chloride (98-107) mmol/L ABG Glucose (65-95) mg/dL Oxyhemoglobin (95.0-99.0) % Carboxyhemoglobin (0.5-1.5) Sodium 133 L (137-145) mmol/L Potassium 5.5 H (3.6-5.0) mmol/L Chloride 93.5 L (98-107) mmol/L BUN 78 H (7-17) mg/dL Creatinine 3.5 H (0.6-1.2) mg/dL Glucose 171 H (65-100) mg/dL POC Glucose 141 H (70-105) mg/dL Calcium 8.1 L (8.4-10.2) mg/dL Phosphorus 9.30 H (2.5-4.5) mg/dL C-Reactive Protein 26.10 H (0.00-1.30) mg/dL Triglycerides 487 H (2-149) mg/dL Arterial Blood Glucose (65-95) mg/dL Arterial Blood Ionized Calcium (4.6-5.3) mg/dL Crossmatch 04/08/21 04/08/21 04/08/21 Range/Units 04:40 09:55 11:37 WBC 23.7 H (4.5-11.0) K/mm3 RBC 2.51 L (3.65-5.03) M/mm3 Hgb 6.9 L (10.1-14.3) gm/dl Hct 22.1 L (30.3-42.9) % MCH 27 L (28-32) pg RDW 18.4 H (13.2-15.2) % D-Dimer (0-234) ng/mlDDU ABG pH 7.114 L* (7.320-7.450) POC ABG pCO2 (32.0-48.0) mmHg ABG pO2 75.9 L (80.0-90.0) mm Hg ABG HCO3 26.2 H (20.0-26.0) mmol/L ABG O2 Saturation 90.6 L (95.0-99.0) % ABG Base Excess -3.6 L (-2.0-3.0) mmol/L ABG Hemoglobin 8.2 L (12.0-17.5) ABG Oxyhemoglobin (94-98) ABG Sodium (136.0-145.0) mmol/L ABG Potassium (3.40-4.50) mmol/L ABG Chloride (98-107) mmol/L ABG Glucose (65-95) mg/dL Oxyhemoglobin 88.0 L (95.0-99.0) % Carboxyhemoglobin (0.5-1.5) Sodium (137-145) mmol/L Potassium (3.6-5.0) mmol/L Chloride (98-107) mmol/L BUN (7-17) mg/dL Creatinine (0.6-1.2) mg/dL Glucose (65-100) mg/dL POC Glucose 156 H (70-105) mg/dL Calcium (8.4-10.2) mg/dL Phosphorus (2.5-4.5) mg/dL C-Reactive Protein (0.00-1.30) mg/dL Triglycerides (2-149) mg/dL Arterial Blood Glucose (65-95) mg/dL Arterial Blood Ionized Calcium (4.6-5.3) mg/dL Crossmatch 04/08/21 Range/Units 13:55 WBC (4.5-11.0) K/mm3 RBC (3.65-5.03) M/mm3 Hgb (10.1-14.3) gm/dl Hct (30.3-42.9) % MCH (28-32) pg RDW (13.2-15.2) % D-Dimer (0-234) ng/mlDDU ABG pH (7.320-7.450) POC ABG pCO2 (32.0-48.0) mmHg ABG pO2 (80.0-90.0) mm Hg ABG HCO3 (20.0-26.0) mmol/L ABG O2 Saturation (95.0-99.0) % ABG Base Excess (-2.0-3.0) mmol/L ABG Hemoglobin (12.0-17.5) ABG Oxyhemoglobin (94-98) ABG Sodium (136.0-145.0) mmol/L ABG Potassium (3.40-4.50) mmol/L ABG Chloride (98-107) mmol/L ABG Glucose (65-95) mg/dL Oxyhemoglobin (95.0-99.0) % Carboxyhemoglobin (0.5-1.5) Sodium (137-145) mmol/L Potassium (3.6-5.0) mmol/L Chloride (98-107) mmol/L BUN (7-17) mg/dL Creatinine (0.6-1.2) mg/dL Glucose (65-100) mg/dL POC Glucose (70-105) mg/dL Calcium (8.4-10.2) mg/dL Phosphorus (2.5-4.5) mg/dL C-Reactive Protein (0.00-1.30) mg/dL Triglycerides (2-149) mg/dL Arterial Blood Glucose (65-95) mg/dL Arterial Blood Ionized Calcium (4.6-5.3) mg/dL Crossmatch See Detail
[2021-04-08] MEDS: MEROPENEM/NS 500 MG/50 ML 500 MG/50 ML BAG IV SCH (22:29)
[2021-04-09] MEDS: INSULIN LISPRO 100 UNIT/ML SUB-Q SCH ×4 (00:51→18:35)
[2021-04-09] MEDS: fentaNYL DRIP Premix 2,000 MCG/100 ML BAG IV SCH ×6 (01:27→20:19)
[2021-04-09] MEDS: IPRATROPIUM/ALBUTEROL SULFATE 3 ML AMPUL.NEB IH SCH ×4 (02:47→22:07)
[2021-04-09] MEDS: NORepinephrine/NS 8 MG-250 ML 8 MG/250 ML INFUS..BTL IV SCH ×4 (03:27→22:56)
[2021-04-09] MEDS: VASOPRESSIN 20 UNIT in SODIUM CHLORIDE 0.9% 100 ML IV SCH ×2 (04:14→15:39)
[2021-04-09] MEDS: methylPREDNISolone Sod Succinate 125 MG/2 ML INJ IV SCH ×3 (06:11→21:53)
[2021-04-09 06:35] LABS: Hematocrit 24.1 % (30.3-42.9); Hemoglobin 7.8 gm/dl (10.1-14.3); Mean Corpuscular HGB Conc 32 % (30-34); Mean Corpuscular Volume 89 fl (79-97); Platelet Count 225 K/mm3 (140-440); Red Cell Distribution Width 18.3 % (13.2-15.2)
[2021-04-09 06:48] LABS: Calcium 8.1 mg/dL (8.4-10.2)
[2021-04-09] MEDS: CALCIUM ACETATE 667 MG CAP FEEDTUBE SCH ×3 (08:07→20:18)
[2021-04-09] MEDS: QUEtiapine 100 MG TAB PO SCH ×2 (09:31→21:51)
[2021-04-09] MEDS: FAMOTIDINE 10 MG TAB PO SCH ×2 (09:31→21:51)
[2021-04-09] MEDS: ASCORBIC ACID 500 MG TAB PO SCH ×2 (09:31→21:53)
[2021-04-09] MEDS: SENNOSIDES/DOCUSATE SODIUM 8.6/50 MG TAB FEEDTUBE SCH ×2 (09:31→21:51)
[2021-04-09] MEDS: ZINC SULFATE 220 MG CAP PO SCH ×2 (09:31→21:53)
[2021-04-09] MEDS: APIXABAN 2.5 MG TAB PO SCH ×2 (09:31→21:49)
--- NOTE | 2021-04-09 09:54 | Progress Note ---
Assessment and Plan Acute hypoxemic respiratory failure Acute asthma exacerbation Morbid obesity Crohn's disease Metabolic acidosis Acute kidney injury Coronavirus infection Pneumonia (CAP) Oropharyngeal dysphagia Obesity Drug rash s/p steroids -With ongoing fevers, will recommend that we get blood cultures fro fungus and start empiric antifungal therapy. Will discuss with ID - add Neosynephrine to vasopressors to allow for UF during HD - continue empiric therapeutic anticoagulation for now - continue to wean vasopressors for target MAP > 65 mmHg ( currently on Norepinephrine at 22mcg and Vasopressin at 0.03) -Add Stress dose steroids - nephrology input appreciated; HD/UF for toxin and volume clearance -Get echocardiogram to evalute for pulmonary HTN and assess LVEF - continue to wean supplemental oxygen to keep SpO2 88-90% - VAP bundle addressed, aspiration precautions HOB >30 - continue lung protective strategies - continue bronchodilators with pulmonary hygiene per RT - wean per pulmonary driven protocols otherwise - continue accuchecks with glycemic control per SSI (While critically ill target blood glucose of 140-180 mg/dL; avoid hypoglycemia) - sedation prn for target RASS 0 to -1 - avoid nephrotoxins, renally dose all medications - continue to avoid benzodiazepines, reduce the possibility of delirium - prn analgesia per CPOT score - Maintenance of sleep-wake cycle, avoid delirium - continue enteral nutritional support at goal rate as tolerated - Stress ulcer prophylaxis - PT/OT/ROM exercises - continue mobility, off loading, frequent turning per facility protocol for pressure ulcer prevention - Monitor hemodynamics closely - continue other care per attending / other consultants COVID SPECIFIC INTERVENTIONS - repeat COVID tests result negative CONDITION: CRITICAL PROGNOSIS: GUARDED CODE STATUS: FULL CODE The high probability of a clinically significant, sudden or life-threatening deterioration of the [respiratory, cardiovascular, renal & neurologic] system(s) required my full and direct attention, intervention and personal management. The aggregate critical care time was [36] minutes without overlap. Time includes spent on; [x] Data Review and interpretation [x] Patient assessment and monitoring of vital signs [x] Documentation [x] Medication orders and management Subjective Date of service: 04/09/21 Principal diagnosis: Ac hypoxemic resp failure; AE-Asthma; SAI; Crohn's; COVID- 19; Pneumonia Interval history: Patient is seen today for: Acute hypoxemic respiratory failure; AE-Asthma; SAI; Crohn's disease; COVID-19 infection; Pneumonia (CAP) Seen and examined at bedside; 24hour events reviewed; nursing and respiratory care staff consulted; no adverse overnight events reported to me; resting in bed; remains on MVS; remains on vasopressors; no emesis or overt aspiration. On going high grade fevers Objective Vital Signs - 12hr 04/08/21 04/08/21 04/08/21 22:00 22:16 22:30 Temperature Pulse Rate 124 H 131 H 125 H Pulse Rate [ From Monitor] Pulse Rate [ Throughout] Respiratory 30 H 34 H 31 H Rate Respiratory Rate [ Throughout] Blood Pressure O2 Sat by Pulse 96 93 98 Oximetry 04/08/21 04/08/21 04/08/21 22:46 22:58 23:00 Temperature Pulse Rate 125 H 127 H 128 H Pulse Rate [ From Monitor] Pulse Rate [ Throughout] Respiratory 30 H 31 H 30 H Rate Respiratory Rate [ Throughout] Blood Pressure O2 Sat by Pulse 97 95 94 Oximetry 04/08/21 04/08/21 04/08/21 23:08 23:16 23:30 Temperature Pulse Rate 130 H 133 H 129 H Pulse Rate [ From Monitor] Pulse Rate [ Throughout] Respiratory 28 H 32 H 33 H Rate Respiratory Rate [ Throughout] Blood Pressure O2 Sat by Pulse 92 95 95 Oximetry 04/08/21 04/08/21 04/08/21 23:31 23:46 23:48 Temperature Pulse Rate 130 H 128 H 134 H Pulse Rate [ From Monitor] Pulse Rate [ Throughout] Respiratory 33 H Rate Respiratory Rate [ Throughout] Blood Pressure 109/65 O2 Sat by Pulse 91 94 Oximetry 04/09/21 04/09/21 04/09/21 00:00 00:16 00:30 Temperature 101.8 F H Pulse Rate 124 H 125 H 126 H Pulse Rate [ 121 H From Monitor] Pulse Rate [ Throughout] Respiratory 32 H 32 H 31 H Rate Respiratory Rate [ Throughout] Blood Pressure O2 Sat by Pulse 99 94 92 Oximetry 04/09/21 04/09/21 04/09/21 00:46 01:00 01:16 Temperature Pulse Rate 126 H 124 H 124 H Pulse Rate [ From Monitor] Pulse Rate [ Throughout] Respiratory 29 H 30 H 27 H Rate Respiratory Rate [ Throughout] Blood Pressure O2 Sat by Pulse 92 96 95 Oximetry 04/09/21 04/09/21 04/09/21 01:30 01:46 02:00 Temperature Pulse Rate 124 H 121 H 122 H Pulse Rate [ From Monitor] Pulse Rate [ Throughout] Respiratory 30 H 30 H 27 H Rate Respiratory Rate [ Throughout] Blood Pressure O2 Sat by Pulse 95 97 96 Oximetry 04/09/21 04/09/21 04/09/21 02:16 02:30 02:46 Temperature Pulse Rate 122 H 127 H 130 H Pulse Rate [ From Monitor] Pulse Rate [ Throughout] Respiratory 28 H 29 H 30 H Rate Respiratory Rate [ Throughout] Blood Pressure O2 Sat by Pulse 96 94 89 Oximetry 04/09/21 04/09/21 04/09/21 02:48 03:00 03:16 Temperature Pulse Rate 127 H 128 H Pulse Rate [ From Monitor] Pulse Rate [ 16 L Throughout] Respiratory 28 H 27 H Rate Respiratory 30 H Rate [ Throughout] Blood Pressure O2 Sat by Pulse 93 90 Oximetry 04/09/21 04/09/21 04/09/21 03:30 03:46 03:57 Temperature 101.5 F H Pulse Rate 122 H 125 H Pulse Rate [ From Monitor] Pulse Rate [ Throughout] Respiratory 26 H 29 H Rate Respiratory Rate [ Throughout] Blood Pressure O2 Sat by Pulse 95 91 Oximetry 04/09/21 04/09/21 04/09/21 04:00 04:16 04:30 Temperature Pulse Rate 126 H 121 H 120 H Pulse Rate [ 121 H From Monitor] Pulse Rate [ Throughout] Respiratory 30 H 31 H 28 H Rate Respiratory Rate [ Throughout] Blood Pressure O2 Sat by Pulse 99 96 96 Oximetry 04/09/21 04/09/21 04/09/21 04:46 04:49 05:00 Temperature Pulse Rate 120 H 120 H 120 H Pulse Rate [ From Monitor] Pulse Rate [ Throughout] Respiratory 25 H 24 Rate Respiratory Rate [ Throughout] Blood Pressure 117/63 O2 Sat by Pulse 97 98 97 Oximetry 04/09/21 04/09/21 04/09/21 05:16 05:30 05:46 Temperature Pulse Rate 120 H 121 H 122 H Pulse Rate [ From Monitor] Pulse Rate [ Throughout] Respiratory 24 22 21 Rate Respiratory Rate [ Throughout] Blood Pressure O2 Sat by Pulse 97 97 96 Oximetry 04/09/21 04/09/21 04/09/21 06:00 06:16 06:30 Temperature Pulse Rate 121 H 124 H 122 H Pulse Rate [ From Monitor] Pulse Rate [ Throughout] Respiratory 20 23 19 Rate Respiratory Rate [ Throughout] Blood Pressure O2 Sat by Pulse 96 97 97 Oximetry 04/09/21 04/09/21 04/09/21 06:46 07:00 07:16 Temperature Pulse Rate 122 H 121 H 121 H Pulse Rate [ From Monitor] Pulse Rate [ Throughout] Respiratory 18 18 16 Rate Respiratory Rate [ Throughout] Blood Pressure O2 Sat by Pulse 97 97 97 Oximetry 04/09/21 04/09/21 04/09/21 07:30 07:46 07:57 Temperature Pulse Rate 121 H 118 H 120 H Pulse Rate [ From Monitor] Pulse Rate [ Throughout] Respiratory 18 16 Rate Respiratory Rate [ Throughout] Blood Pressure O2 Sat by Pulse 96 96 Oximetry 04/09/21 04/09/21 04/09/21 08:00 08:16 08:28 Temperature Pulse Rate 119 H 120 H 121 H Pulse Rate [ 119 H From Monitor] Pulse Rate [ Throughout] Respiratory 18 17 Rate Respiratory Rate [ Throughout] Blood Pressure 117/67 O2 Sat by Pulse 95 95 95 Oximetry 04/09/21 04/09/21 08:29 08:30 Temperature Pulse Rate 123 H Pulse Rate [ From Monitor] Pulse Rate [ 121 H Throughout] Respiratory 17 Rate Respiratory 33 H Rate [ Throughout] Blood Pressure O2 Sat by Pulse 95 Oximetry Constitutional: appears uncomfortable, other (morbidly obese female with no ventilator dyssynchrony, peeling skin rash, anarsaca) Eyes: non-icteric, other (scleral erythema / bleeding is improving) ENT: oropharynx moist, other (ETT 25 cm BALJINDER) Neck: supple, no lymphadenopathy, no JVD, other (large circumference) Effort: mildly labored Ascultation: Bilateral: diminished breath sounds, rhonchi Percussion: Bilateral: not dull Cardiovascular: regular rate and rhythm, other (S1,S2) Gastrointestinal: normoactive bowel sounds, soft, non-tender, non-distended (protuberant) Integumentary: rash ( ), other Extremities: no cyanosis, pulses normal, no ischemia or petechiae, anasarca Neurologic: pupils equal and round, other (sedated) Psychiatric: other (unable to assess) CBC and BMP: 04/09/21 04:00 04/09/21 04:00 ABG, PT/INR, D-dimer: ABG ABG pH 7.207 (7.320-7.450) L 04/08/21 20:53 POC ABG pCO2 49.8 mmHg (32.0-48.0) H 04/08/21 20:53 ABG pCO2 83.8 mm Hg 04/08/21 09:55 POC ABG pO2 91.9 mmHg (83-108) 04/08/21 20:53 ABG pO2 75.9 mm Hg (80.0-90.0) L 04/08/21 09:55 POC ABG HCO3 19.3 04/08/21 20:53 ABG O2 Saturation 95.9 (0-100) 04/08/21 20:53 PT/INR, D-dimer PT 13.9 Sec. (12.2-14.9) 04/04/21 07:55 INR 0.96 (0.87-1.13) 04/04/21 07:55 D-Dimer 2696.79 ng/mlDDU (0-234) H 04/08/21 04:40 Abnormal lab findings: Abnormal Labs 03/13/21 03/13/21 03/13/21 13:26 13:26 15:40 WBC RBC Hgb Hct MCH 27 L MCHC RDW 17.0 H Plt Count Lymph % (Auto) [place] # (Auto) Eos # (Auto) Seg Neutrophils % Lymphocytes % (Manual) Eosinophils % (Manual) Basophils % (Manual) Nucleated RBC % Seg Neutrophils # Seg Neutrophils # Man Lymphocytes # (Manual) Monocytes # (Manual) Eosinophils # (Manual) Basophils # (Manual) Percent Retic PT INR Fibrinogen D-Dimer ABG pH POC ABG pCO2 POC ABG pO2 ABG pO2 ABG HCO3 ABG O2 Saturation ABG Base Excess ABG Hemoglobin ABG Oxyhemoglobin ABG Sodium ABG Potassium ABG Chloride ABG Glucose Oxyhemoglobin Carboxyhemoglobin Sodium 136 L Potassium Chloride Carbon Dioxide BUN Creatinine Glucose 125 H 130 H POC Glucose Hemoglobin A1c Calcium Phosphorus Magnesium AST ALT Alkaline Phosphatase Lactate Dehydrogenase 235 H C-Reactive Protein 4.30 H Total Protein Albumin Triglycerides Arterial Blood Glucose Arterial Blood Ionized Calcium Urine WBC (Auto) U Epithel Cells (Auto) Urine Creatinine Random Vancomycin Coronavirus (PCR) Crossmatch 03/13/21 03/14/21 03/14/21 21:33 03:35 06:21 WBC 20.0 H RBC Hgb Hct MCH 27 L MCHC RDW 17.5 H Plt Count Lymph % (Auto) 7.8 L [place] # (Auto) 1.3 H Eos # (Auto) Seg Neutrophils % 85.4 H Lymphocytes % (Manual) Eosinophils % (Manual) Basophils % (Manual) Nucleated RBC % Seg Neutrophils # 17.1 H Seg Neutrophils # Man Lymphocytes # (Manual) Monocytes # (Manual) Eosinophils # (Manual) Basophils # (Manual) Percent Retic PT INR Fibrinogen D-Dimer ABG pH 7.323 L 7.234 L POC ABG pCO2 POC ABG pO2 ABG pO2 69.8 L ABG HCO3 ABG O2 Saturation 92.9 L 94.9 L ABG Base Excess -3.3 L -5.4 L ABG Hemoglobin ABG Oxyhemoglobin ABG Sodium ABG Potassium ABG Chloride ABG Glucose Oxyhemoglobin 91.2 L 93.2 L Carboxyhemoglobin Sodium Potassium Chloride Carbon Dioxide BUN Creatinine Glucose POC Glucose Hemoglobin A1c Calcium Phosphorus Magnesium AST ALT Alkaline Phosphatase Lactate Dehydrogenase C-Reactive Protein Total Protein Albumin Triglycerides Arterial Blood Glucose Arterial Blood Ionized Calcium Urine WBC (Auto) U Epithel Cells (Auto) Urine Creatinine Random Vancomycin Coronavirus (PCR) Crossmatch 03/14/21 03/14/21 03/14/21 06:21 07:47 11:21 WBC RBC Hgb Hct MCH MCHC RDW Plt Count Lymph % (Auto) [place] # (Auto) Eos # (Auto) Seg Neutrophils % Lymphocytes % (Manual) Eosinophils % (Manual) Basophils % (Manual) Nucleated RBC % Seg Neutrophils # Seg Neutrophils # Man Lymphocytes # (Manual) Monocytes # (Manual) Eosinophils # (Manual) Basophils # (Manual) Percent Retic PT INR Fibrinogen D-Dimer ABG pH POC ABG pCO2 POC ABG pO2 ABG pO2 ABG HCO3 ABG O2 Saturation ABG Base Excess ABG Hemoglobin ABG Oxyhemoglobin ABG Sodium ABG Potassium ABG Chloride ABG Glucose Oxyhemoglobin Carboxyhemoglobin Sodium 136 L 136 L Potassium 6.2 H* D 5.4 H Chloride Carbon Dioxide 21 L 21 L BUN Creatinine 1.5 H D 1.8 H Glucose 144 H 141 H POC Glucose 147 H Hemoglobin A1c Calcium Phosphorus Magnesium AST ALT Alkaline Phosphatase Lactate Dehydrogenase C-Reactive Protein Total Protein 8.7 H 9.2 H Albumin 3.8 L Triglycerides Arterial Blood Glucose Arterial Blood Ionized Calcium Urine WBC (Auto) U Epithel Cells (Auto) Urine Creatinine Random Vancomycin Coronavirus (PCR) Crossmatch 03/14/21 03/14/2121 17:29 17:50 18:35 WBC RBC Hgb Hct MCH MCHC RDW Plt Count Lymph % (Auto) [place] # (Auto) Eos # (Auto) Seg Neutrophils % Lymphocytes % (Manual) Eosinophils % (Manual) Basophils % (Manual) Nucleated RBC % Seg Neutrophils # Seg Neutrophils # Man Lymphocytes # (Manual) Monocytes # (Manual) Eosinophils # (Manual) Basophils # (Manual) Percent Retic PT INR Fibrinogen D-Dimer ABG pH POC ABG pCO2 POC ABG pO2 ABG pO2 ABG HCO3 ABG O2 Saturation ABG Base Excess ABG Hemoglobin ABG Oxyhemoglobin ABG Sodium ABG Potassium ABG Chloride ABG Glucose Oxyhemoglobin Carboxyhemoglobin Sodium 135 L Potassium 6.4 H* Chloride Carbon Dioxide 15 L BUN 26 H Creatinine 3.4 H D Glucose 165 H POC Glucose 209 H Hemoglobin A1c Calcium Phosphorus Magnesium AST ALT Alkaline Phosphatase Lactate Dehydrogenase C-Reactive Protein Total Protein Albumin Triglycerides Arterial Blood Glucose Arterial Blood Ionized Calcium Urine WBC (Auto) U Epithel Cells (Auto) Urine Creatinine 40.1 H Random Vancomycin Coronavirus (PCR) Crossmatch 03/14/21 03/14/21 03/14/21 18:46 22:23 23:52 WBC RBC Hgb Hct MCH MCHC RDW Plt Count Lymph % (Auto) [place] # (Auto) Eos # (Auto) Seg Neutrophils % Lymphocytes % (Manual) Eosinophils % (Manual) Basophils % (Manual) Nucleated RBC % Seg Neutrophils # Seg Neutrophils # Man Lymphocytes # (Manual) Monocytes # (Manual) Eosinophils # (Manual) Basophils # (Manual) Percent Retic PT INR Fibrinogen D-Dimer ABG pH 7.270 L POC ABG pCO2 POC ABG pO2 63.4 L ABG pO2 ABG HCO3 ABG O2 Saturation ABG Base Excess ABG Hemoglobin ABG Oxyhemoglobin 90.2 L ABG Sodium 134.9 L ABG Potassium 5.3 H ABG Chloride ABG Glucose 134 H Oxyhemoglobin Carboxyhemoglobin Sodium 136 L Potassium 5.2 H Chloride Carbon Dioxide 20 L BUN 29 H Creatinine 3.6 H Glucose 236 H POC Glucose 128 H Hemoglobin A1c Calcium Phosphorus Magnesium AST ALT Alkaline Phosphatase Lactate Dehydrogenase C-Reactive Protein Total Protein Albumin 3.2 L Triglycerides Arterial Blood Glucose 134 H Arterial Blood Ionized Calcium Urine WBC (Auto) U Epithel Cells (Auto) Urine Creatinine Random Vancomycin Coronavirus (PCR) Crossmatch 03/14/21 03/15/21 03/15/21 Unknown 05:00 05:09 WBC 22.5 H RBC Hgb Hct MCH 27 L MCHC RDW 17.6 H Plt Count Lymph % (Auto) [place] # (Auto) Eos # (Auto) Seg Neutrophils % Lymphocytes % (Manual) Eosinophils % (Manual) Basophils % (Manual) Nucleated RBC % Seg Neutrophils # Seg Neutrophils # Man Lymphocytes # (Manual) Monocytes # (Manual) Eosinophils # (Manual) Basophils # (Manual) Percent Retic PT INR Fibrinogen D-Dimer ABG pH POC ABG pCO2 POC ABG pO2 ABG pO2 ABG HCO3 ABG O2 Saturation ABG Base Excess ABG Hemoglobin ABG Oxyhemoglobin ABG Sodium ABG Potassium ABG Chloride ABG Glucose Oxyhemoglobin Carboxyhemoglobin Sodium Potassium Chloride Carbon Dioxide BUN Creatinine Glucose POC Glucose 116 H Hemoglobin A1c Calcium Phosphorus Magnesium AST ALT Alkaline Phosphatase Lactate Dehydrogenase C-Reactive Protein Total Protein Albumin Triglycerides Arterial Blood Glucose Arterial Blood Ionized Calcium Urine WBC (Auto) U Epithel Cells (Auto) Urine Creatinine Random Vancomycin Coronavirus (PCR) Positive A Crossmatch 03/15/21 03/15/21 03/15/21 05:09 05:09 05:09 WBC RBC Hgb Hct MCH MCHC RDW Plt Count Lymph % (Auto) [place] # (Auto) Eos # (Auto) Seg Neutrophils % Lymphocytes % (Manual) Eosinophils % (Manual) Basophils % (Manual) Nucleated RBC % Seg Neutrophils # Seg Neutrophils # Man Lymphocytes # (Manual) Monocytes # (Manual) Eosinophils # (Manual) Basophils # (Manual) Percent Retic PT INR Fibrinogen D-Dimer ABG pH POC ABG pCO2 POC ABG pO2 ABG pO2 ABG HCO3 ABG O2 Saturation ABG Base Excess ABG Hemoglobin ABG Oxyhemoglobin ABG Sodium ABG Potassium ABG Chloride ABG Glucose Oxyhemoglobin Carboxyhemoglobin Sodium 136 L Potassium 6.5 H* D Chloride Carbon Dioxide 17 L BUN 41 H Creatinine 5.3 H Glucose 128 H POC Glucose Hemoglobin A1c 6.3 H Calcium Phosphorus Magnesium AST ALT Alkaline Phosphatase Lactate Dehydrogenase C-Reactive Protein 12.10 H Total Protein Albumin 3.1 L Triglycerides Arterial Blood Glucose Arterial Blood Ionized Calcium Urine WBC (Auto) U Epithel Cells (Auto) Urine Creatinine Random Vancomycin Coronavirus (PCR) Crossmatch 03/15/21 03/15/21 03/15/21 10:00 21:50 23:39 WBC RBC Hgb Hct MCH MCHC RDW Plt Count Lymph % (Auto) [place] # (Auto) Eos # (Auto) Seg Neutrophils % Lymphocytes % (Manual) Eosinophils % (Manual) Basophils % (Manual) Nucleated RBC % Seg Neutrophils # Seg Neutrophils # Man Lymphocytes # (Manual) Monocytes # (Manual) Eosinophils # (Manual) Basophils # (Manual) Percent Retic PT INR Fibrinogen D-Dimer ABG pH 7.098 L POC ABG pCO2 72.7 H POC ABG pO2 ABG pO2 162.5 H ABG HCO3 ABG O2 Saturation ABG Base Excess ABG Hemoglobin 10.1 L ABG Oxyhemoglobin ABG Sodium ABG Potassium 5.7 H ABG Chloride ABG Glucose Oxyhemoglobin Carboxyhemoglobin 0.4 L Sodium Potassium Chloride Carbon Dioxide BUN Creatinine Glucose POC Glucose 156 H Hemoglobin A1c Calcium Phosphorus Magnesium AST ALT Alkaline Phosphatase Lactate Dehydrogenase C-Reactive Protein Total Protein Albumin Triglycerides Arterial Blood Glucose Arterial Blood Ionized Calcium Urine WBC (Auto) U Epithel Cells (Auto) Urine Creatinine Random Vancomycin Coronavirus (PCR) Crossmatch 03/16/21 03/16/21 03/16/21 05:00 05:30 05:30 WBC 16.7 H RBC 3.59 L Hgb 9.6 L Hct 30.1 L MCH 27 L MCHC RDW 17.5 H Plt Count Lymph % (Auto) [place] # (Auto) Eos # (Auto) Seg Neutrophils % Lymphocytes % (Manual) Eosinophils % (Manual) Basophils % (Manual) Nucleated RBC % Seg Neutrophils # Seg Neutrophils # Man Lymphocytes # (Manual) Monocytes # (Manual) Eosinophils # (Manual) Basophils # (Manual) Percent Retic PT INR Fibrinogen D-Dimer ABG pH POC ABG pCO2 POC ABG pO2 ABG pO2 ABG HCO3 ABG O2 Saturation ABG Base Excess ABG Hemoglobin ABG Oxyhemoglobin ABG Sodium ABG Potassium ABG Chloride ABG Glucose Oxyhemoglobin Carboxyhemoglobin Sodium Potassium Chloride Carbon Dioxide BUN 46 H Creatinine 6.2 H Glucose 131 H POC Glucose Hemoglobin A1c Calcium Phosphorus 6.00 H D Magnesium AST ALT Alkaline Phosphatase Lactate Dehydrogenase 318 H C-Reactive Protein 18.60 H Total Protein Albumin 3.0 L Triglycerides Arterial Blood Glucose Arterial Blood Ionized Calcium Urine WBC (Auto) U Epithel Cells (Auto) Urine Creatinine Random Vancomycin Coronavirus (PCR) Crossmatch 03/16/21 03/16/21 03/16/21 05:51 06:37 08:58 WBC RBC Hgb Hct MCH MCHC RDW Plt Count Lymph % (Auto) [place] # (Auto) Eos # (Auto) Seg Neutrophils % Lymphocytes % (Manual) Eosinophils % (Manual) Basophils % (Manual) Nucleated RBC % Seg Neutrophils # Seg Neutrophils # Man Lymphocytes # (Manual) Monocytes # (Manual) Eosinophils # (Manual) Basophils # (Manual) Percent Retic PT INR Fibrinogen D-Dimer 3041.12 H ABG pH POC ABG pCO2 POC ABG pO2 ABG pO2 141.5 H ABG HCO3 ABG O2 Saturation ABG Base Excess ABG Hemoglobin 9.7 L ABG Oxyhemoglobin ABG Sodium ABG Potassium ABG Chloride ABG Glucose Oxyhemoglobin Carboxyhemoglobin Sodium Potassium Chloride Carbon Dioxide BUN Creatinine Glucose POC Glucose 126 H Hemoglobin A1c Calcium Phosphorus Magnesium AST ALT Alkaline Phosphatase Lactate Dehydrogenase C-Reactive Protein Total Protein Albumin Triglycerides Arterial Blood Glucose Arterial Blood Ionized Calcium Urine WBC (Auto) U Epithel Cells (Auto) Urine Creatinine Random Vancomycin Coronavirus (PCR) Crossmatch 03/16/21 03/16/21 03/16/21 12:11 16:51 21:00 WBC RBC Hgb Hct MCH MCHC RDW Plt Count Lymph % (Auto) [place] # (Auto) Eos # (Auto) Seg Neutrophils % Lymphocytes % (Manual) Eosinophils % (Manual) Basophils % (Manual) Nucleated RBC % Seg Neutrophils # Seg Neutrophils # Man Lymphocytes # (Manual) Monocytes # (Manual) Eosinophils # (Manual) Basophils # (Manual) Percent Retic PT INR Fibrinogen D-Dimer ABG pH 7.239 L POC ABG pCO2 61.5 H POC ABG pO2 80.8 L ABG pO2 ABG HCO3 ABG O2 Saturation ABG Base Excess ABG Hemoglobin 11.4 L ABG Oxyhemoglobin 93.5 L ABG Sodium ABG Potassium 5.4 H ABG Chloride ABG Glucose 137 H Oxyhemoglobin Carboxyhemoglobin 0.2 L Sodium Potassium Chloride Carbon Dioxide BUN Creatinine Glucose POC Glucose 156 H 133 H Hemoglobin A1c Calcium Phosphorus Magnesium AST ALT Alkaline Phosphatase Lactate Dehydrogenase C-Reactive Protein Total Protein Albumin Triglycerides Arterial Blood Glucose 137 H Arterial Blood Ionized Calcium Urine WBC (Auto) U Epithel Cells (Auto) Urine Creatinine Random Vancomycin Coronavirus (PCR) Crossmatch 03/16/21 03/17/21 03/17/21 23:42 05:23 05:23 WBC 18.4 H RBC Hgb Hct MCH 27 L MCHC RDW 17.4 H Plt Count Lymph % (Auto) [place] # (Auto) Eos # (Auto) Seg Neutrophils % Lymphocytes % (Manual) Eosinophils % (Manual) Basophils % (Manual) Nucleated RBC % Seg Neutrophils # Seg Neutrophils # Man Lymphocytes # (Manual) Monocytes # (Manual) Eosinophils # (Manual) Basophils # (Manual) Percent Retic PT INR Fibrinogen D-Dimer ABG pH POC ABG pCO2 POC ABG pO2 ABG pO2 ABG HCO3 ABG O2 Saturation ABG Base Excess ABG Hemoglobin ABG Oxyhemoglobin ABG Sodium ABG Potassium ABG Chloride ABG Glucose Oxyhemoglobin Carboxyhemoglobin Sodium Potassium 5.2 H Chloride Carbon Dioxide 21 L BUN 79 H Creatinine 8.6 H Glucose 124 H POC Glucose 133 H Hemoglobin A1c Calcium Phosphorus Magnesium AST ALT Alkaline Phosphatase Lactate Dehydrogenase C-Reactive Protein Total Protein Albumin 3.2 L Triglycerides 285 H Arterial Blood Glucose Arterial Blood Ionized Calcium Urine WBC (Auto) U Epithel Cells (Auto) Urine Creatinine Random Vancomycin Coronavirus (PCR) Crossmatch 03/17/21 03/17/21 03/17/21 05:23 10:48 12:20 WBC RBC Hgb Hct MCH MCHC RDW Plt Count Lymph % (Auto) [place] # (Auto) Eos # (Auto) Seg Neutrophils % Lymphocytes % (Manual) Eosinophils % (Manual) Basophils % (Manual) Nucleated RBC % Seg Neutrophils # Seg Neutrophils # Man Lymphocytes # (Manual) Monocytes # (Manual) Eosinophils # (Manual) Basophils # (Manual) Percent Retic PT INR Fibrinogen D-Dimer ABG pH 7.294 L POC ABG pCO2 POC ABG pO2 ABG pO2 90.3 H ABG HCO3 ABG O2 Saturation ABG Base Excess ABG Hemoglobin 9.9 L ABG Oxyhemoglobin ABG Sodium ABG Potassium ABG Chloride ABG Glucose Oxyhemoglobin Carboxyhemoglobin Sodium Potassium 5.2 H Chloride Carbon Dioxide 21 L BUN 79 H Creatinine 8.4 H Glucose 125 H POC Glucose 171 H Hemoglobin A1c Calcium Phosphorus 9.90 H D Magnesium 2.40 H AST ALT Alkaline Phosphatase Lactate Dehydrogenase C-Reactive Protein Total Protein Albumin Triglycerides Arterial Blood Glucose Arterial Blood Ionized Calcium Urine WBC (Auto) U Epithel Cells (Auto) Urine Creatinine Random Vancomycin Coronavirus (PCR) Crossmatch 03/17/21 03/17/21 03/18/21 17:24 21:00 04:30 WBC RBC Hgb Hct MCH MCHC RDW Plt Count Lymph % (Auto) [place] # (Auto) Eos # (Auto) Seg Neutrophils % Lymphocytes % (Manual) Eosinophils % (Manual) Basophils % (Manual) Nucleated RBC % Seg Neutrophils # Seg Neutrophils # Man Lymphocytes # (Manual) Monocytes # (Manual) Eosinophils # (Manual) Basophils # (Manual) Percent Retic PT INR Fibrinogen D-Dimer 9953.09 H ABG pH 7.310 L POC ABG pCO2 54.5 H POC ABG pO2 62.3 L ABG pO2 ABG HCO3 ABG O2 Saturation ABG Base Excess ABG Hemoglobin 10.2 L ABG Oxyhemoglobin 88.6 L ABG Sodium ABG Potassium 4.7 H ABG Chloride ABG Glucose 99 H Oxyhemoglobin Carboxyhemoglobin 0.3 L Sodium Potassium Chloride Carbon Dioxide BUN Creatinine Glucose POC Glucose 121 H Hemoglobin A1c Calcium Phosphorus Magnesium AST ALT Alkaline Phosphatase Lactate Dehydrogenase C-Reactive Protein Total Protein Albumin Triglycerides Arterial Blood Glucose 99 H Arterial Blood Ionized Calcium 4.3 L Urine WBC (Auto) U Epithel Cells (Auto) Urine Creatinine Random Vancomycin Coronavirus (PCR) Crossmatch 03/18/21 03/18/21 03/18/21 04:30 04:30 11:34 WBC 12.8 H RBC 3.49 L Hgb 9.4 L Hct 29.3 L MCH 27 L MCHC RDW 17.4 H Plt Count Lymph % (Auto) [place] # (Auto) Eos # (Auto) Seg Neutrophils % Lymphocytes % (Manual) Eosinophils % (Manual) Basophils % (Manual) Nucleated RBC % Seg Neutrophils # Seg Neutrophils # Man Lymphocytes # (Manual) Monocytes # (Manual) Eosinophils # (Manual) Basophils # (Manual) Percent Retic PT INR Fibrinogen D-Dimer ABG pH POC ABG pCO2 POC ABG pO2 ABG pO2 ABG HCO3 ABG O2 Saturation ABG Base Excess ABG Hemoglobin ABG Oxyhemoglobin ABG Sodium ABG Potassium ABG Chloride ABG Glucose Oxyhemoglobin Carboxyhemoglobin Sodium Potassium Chloride Carbon Dioxide BUN 69 H Creatinine 7.3 H Glucose POC Glucose 114 H Hemoglobin A1c Calcium 8.2 L Phosphorus 7.60 H D Magnesium AST ALT Alkaline Phosphatase Lactate Dehydrogenase 477 H C-Reactive Protein 6.90 H Total Protein Albumin Triglycerides Arterial Blood Glucose Arterial Blood Ionized Calcium Urine WBC (Auto) U Epithel Cells (Auto) Urine Creatinine Random Vancomycin Coronavirus (PCR) Crossmatch 03/18/21 03/19/21 03/19/21 21:44 04:13 04:13 WBC 13.7 H RBC 3.32 L Hgb 9.0 L Hct 28.1 L MCH 27 L MCHC RDW 16.9 H Plt Count Lymph % (Auto) [place] # (Auto) Eos # (Auto) Seg Neutrophils % Lymphocytes % (Manual) Eosinophils % (Manual) Basophils % (Manual) Nucleated RBC % Seg Neutrophils # Seg Neutrophils # Man Lymphocytes # (Manual) Monocytes # (Manual) Eosinophils # (Manual) Basophils # (Manual) Percent Retic PT INR Fibrinogen D-Dimer ABG pH 7.290 L POC ABG pCO2 POC ABG pO2 ABG pO2 119.7 H ABG HCO3 28.0 H ABG O2 Saturation ABG Base Excess ABG Hemoglobin 9.6 L ABG Oxyhemoglobin ABG Sodium ABG Potassium ABG Chloride ABG Glucose Oxyhemoglobin Carboxyhemoglobin Sodium Potassium Chloride Carbon Dioxide BUN Creatinine Glucose POC Glucose Hemoglobin A1c Calcium Phosphorus Magnesium AST ALT Alkaline Phosphatase Lactate Dehydrogenase C-Reactive Protein Total Protein Albumin Triglycerides Arterial Blood Glucose Arterial Blood Ionized Calcium Urine WBC (Auto) U Epithel Cells (Auto) Urine Creatinine Random Vancomycin 43.5 H Coronavirus (PCR) Crossmatch 03/19/21 03/19/21 03/19/21 04:13 05:59 11:40 WBC RBC Hgb Hct MCH MCHC RDW Plt Count Lymph % (Auto) [place] # (Auto) Eos # (Auto) Seg Neutrophils % Lymphocytes % (Manual) Eosinophils % (Manual) Basophils % (Manual) Nucleated RBC % Seg Neutrophils # Seg Neutrophils # Man Lymphocytes # (Manual) Monocytes # (Manual) Eosinophils # (Manual) Basophils # (Manual) Percent Retic PT INR Fibrinogen D-Dimer ABG pH POC ABG pCO2 POC ABG pO2 ABG pO2 ABG HCO3 ABG O2 Saturation ABG Base Excess ABG Hemoglobin ABG Oxyhemoglobin ABG Sodium ABG Potassium ABG Chloride ABG Glucose Oxyhemoglobin Carboxyhemoglobin Sodium Potassium Chloride Carbon Dioxide BUN 55 H Creatinine 7.0 H Glucose POC Glucose 116 H 145 H Hemoglobin A1c Calcium 8.1 L Phosphorus 7.90 H Magnesium AST ALT Alkaline Phosphatase Lactate Dehydrogenase C-Reactive Protein Total Protein Albumin Triglycerides Arterial Blood Glucose Arterial Blood Ionized Calcium Urine WBC (Auto) U Epithel Cells (Auto) Urine Creatinine Random Vancomycin Coronavirus (PCR) Crossmatch 03/19/21 03/19/21 03/20/21 17:01 23:41 04:00 WBC 15.6 H RBC 3.55 L Hgb 9.6 L Hct MCH 27 L MCHC RDW 16.8 H Plt Count 139 L Lymph % (Auto) [place] # (Auto) Eos # (Auto) Seg Neutrophils % Lymphocytes % (Manual) Eosinophils % (Manual) Basophils % (Manual) Nucleated RBC % Seg Neutrophils # Seg Neutrophils # Man Lymphocytes # (Manual) Monocytes # (Manual) Eosinophils # (Manual) Basophils # (Manual) Percent Retic PT INR Fibrinogen D-Dimer ABG pH POC ABG pCO2 POC ABG pO2 ABG pO2 ABG HCO3 ABG O2 Saturation ABG Base Excess ABG Hemoglobin ABG Oxyhemoglobin ABG Sodium ABG Potassium ABG Chloride ABG Glucose Oxyhemoglobin Carboxyhemoglobin Sodium Potassium Chloride Carbon Dioxide BUN Creatinine Glucose POC Glucose 111 H 118 H Hemoglobin A1c Calcium Phosphorus Magnesium AST ALT Alkaline Phosphatase Lactate Dehydrogenase C-Reactive Protein Total Protein Albumin Triglycerides Arterial Blood Glucose Arterial Blood Ionized Calcium Urine WBC (Auto) U Epithel Cells (Auto) Urine Creatinine Random Vancomycin Coronavirus (PCR) Crossmatch 03/20/21 03/20/21 03/20/21 04:00 04:00 04:37 WBC RBC Hgb Hct MCH MCHC RDW Plt Count Lymph % (Auto) [place] # (Auto) Eos # (Auto) Seg Neutrophils % Lymphocytes % (Manual) Eosinophils % (Manual) Basophils % (Manual) Nucleated RBC % Seg Neutrophils # Seg Neutrophils # Man Lymphocytes # (Manual) Monocytes # (Manual) Eosinophils # (Manual) Basophils # (Manual) Percent Retic PT INR Fibrinogen D-Dimer > 08703 H ABG pH 7.306 L POC ABG pCO2 POC ABG pO2 ABG pO2 ABG HCO3 27.9 H ABG O2 Saturation ABG Base Excess ABG Hemoglobin 5.2 L ABG Oxyhemoglobin ABG Sodium ABG Potassium ABG Chloride ABG Glucose Oxyhemoglobin Carboxyhemoglobin Sodium Potassium 5.2 H Chloride 97.6 L Carbon Dioxide BUN 52 H Creatinine 6.2 H Glucose 104 H POC Glucose Hemoglobin A1c Calcium Phosphorus 8.60 H Magnesium AST ALT Alkaline Phosphatase Lactate Dehydrogenase C-Reactive Protein 6.90 H Total Protein Albumin Triglycerides Arterial Blood Glucose Arterial Blood Ionized Calcium Urine WBC (Auto) U Epithel Cells (Auto) Urine Creatinine Random Vancomycin Coronavirus (PCR) Crossmatch 03/20/21 03/20/21 03/20/21 13:50 17:46 17:56 WBC RBC Hgb Hct MCH MCHC RDW Plt Count Lymph % (Auto) [place] # (Auto) Eos # (Auto) Seg Neutrophils % Lymphocytes % (Manual) Eosinophils % (Manual) Basophils % (Manual) Nucleated RBC % Seg Neutrophils # Seg Neutrophils # Man Lymphocytes # (Manual) Monocytes # (Manual) Eosinophils # (Manual) Basophils # (Manual) Percent Retic PT INR Fibrinogen D-Dimer ABG pH POC ABG pCO2 POC ABG pO2 ABG pO2 ABG HCO3 ABG O2 Saturation ABG Base Excess ABG Hemoglobin ABG Oxyhemoglobin ABG Sodium ABG Potassium ABG Chloride ABG Glucose Oxyhemoglobin Carboxyhemoglobin Sodium Potassium Chloride Carbon Dioxide BUN 63 H 43 H Creatinine Glucose POC Glucose 145 H Hemoglobin A1c Calcium Phosphorus Magnesium AST ALT Alkaline Phosphatase Lactate Dehydrogenase C-Reactive Protein Total Protein Albumin Triglycerides Arterial Blood Glucose Arterial Blood Ionized Calcium Urine WBC (Auto) U Epithel Cells (Auto) Urine Creatinine Random Vancomycin Coronavirus (PCR) Crossmatch 03/20/21 03/21/21 03/21/21 23:18 06:58 06:58 WBC 14.4 H RBC 3.41 L Hgb 9.5 L Hct 28.6 L MCH MCHC RDW 17.4 H Plt Count 107 L Lymph % (Auto) [place] # (Auto) Eos # (Auto) Seg Neutrophils % Lymphocytes % (Manual) Eosinophils % (Manual) Basophils % (Manual) Nucleated RBC % Seg Neutrophils # Seg Neutrophils # Man Lymphocytes # (Manual) Monocytes # (Manual) Eosinophils # (Manual) Basophils # (Manual) Percent Retic PT INR Fibrinogen D-Dimer ABG pH POC ABG pCO2 POC ABG pO2 ABG pO2 ABG HCO3 ABG O2 Saturation ABG Base Excess ABG Hemoglobin ABG Oxyhemoglobin ABG Sodium ABG Potassium ABG Chloride ABG Glucose Oxyhemoglobin Carboxyhemoglobin Sodium Potassium Chloride Carbon Dioxide BUN 60 H Creatinine 7.7 H Glucose POC Glucose 106 H Hemoglobin A1c Calcium Phosphorus Magnesium AST ALT Alkaline Phosphatase Lactate Dehydrogenase C-Reactive Protein Total Protein Albumin Triglycerides Arterial Blood Glucose Arterial Blood Ionized Calcium Urine WBC (Auto) U Epithel Cells (Auto) Urine Creatinine Random Vancomycin Coronavirus (PCR) Crossmatch 03/21/21 03/21/21 03/21/21 11:11 18:04 Unknown WBC RBC Hgb Hct MCH MCHC RDW Plt Count Lymph % (Auto) [place] # (Auto) Eos # (Auto) Seg Neutrophils % Lymphocytes % (Manual) Eosinophils % (Manual) Basophils % (Manual) Nucleated RBC % Seg Neutrophils # Seg Neutrophils # Man Lymphocytes # (Manual) Monocytes # (Manual) Eosinophils # (Manual) Basophils # (Manual) Percent Retic PT INR Fibrinogen D-Dimer ABG pH 7.270 L POC ABG pCO2 58.7 H POC ABG pO2 76.9 L ABG pO2 ABG HCO3 ABG O2 Saturation ABG Base Excess ABG Hemoglobin 9.9 L ABG Oxyhemoglobin 92.4 L ABG Sodium 135.8 L ABG Potassium 4.6 H ABG Chloride ABG Glucose Oxyhemoglobin Carboxyhemoglobin 0.1 L Sodium Potassium Chloride Carbon Dioxide BUN Creatinine Glucose POC Glucose 109 H 141 H Hemoglobin A1c Calcium Phosphorus Magnesium AST ALT Alkaline Phosphatase Lactate Dehydrogenase C-Reactive Protein Total Protein Albumin Triglycerides Arterial Blood Glucose Arterial Blood Ionized Calcium 4.5 L Urine WBC (Auto) U Epithel Cells (Auto) Urine Creatinine Random Vancomycin Coronavirus (PCR) Crossmatch 03/22/21 03/22/21 03/22/21 03:09 07:10 10:00 WBC RBC Hgb Hct MCH MCHC RDW Plt Count Lymph % (Auto) [place] # (Auto) Eos # (Auto) Seg Neutrophils % Lymphocytes % (Manual) Eosinophils % (Manual) Basophils % (Manual) Nucleated RBC % Seg Neutrophils # Seg Neutrophils # Man Lymphocytes # (Manual) Monocytes # (Manual) Eosinophils # (Manual) Basophils # (Manual) Percent Retic PT INR Fibrinogen D-Dimer ABG pH 7.206 L 7.245 L POC ABG pCO2 55.6 H POC ABG pO2 ABG pO2 90.6 H ABG HCO3 ABG O2 Saturation ABG Base Excess -4.4 L ABG Hemoglobin 9.0 L 8.4 L ABG Oxyhemoglobin ABG Sodium 123.4 L ABG Potassium 5.6 H ABG Chloride ABG Glucose 106 H Oxyhemoglobin 94.5 L Carboxyhemoglobin 0.1 L Sodium Potassium 5.4 H Chloride 96.8 L Carbon Dioxide BUN 89 H Creatinine 8.7 H Glucose 131 H POC Glucose Hemoglobin A1c Calcium Phosphorus Magnesium AST ALT Alkaline Phosphatase Lactate Dehydrogenase C-Reactive Protein 9.40 H Total Protein Albumin Triglycerides Arterial Blood Glucose 106 H Arterial Blood Ionized Calcium Urine WBC (Auto) U Epithel Cells (Auto) Urine Creatinine Random Vancomycin Coronavirus (PCR) Crossmatch 03/22/21 03/22/21 03/22/21 10:00 12:37 13:19 WBC RBC 3.05 L Hgb 8.4 L Hct 25.5 L MCH MCHC RDW 17.5 H Plt Count 108 L Lymph % (Auto) [place] # (Auto) Eos # (Auto) Seg Neutrophils % Lymphocytes % (Manual) Eosinophils % (Manual) Basophils % (Manual) Nucleated RBC % Seg Neutrophils # Seg Neutrophils # Man Lymphocytes # (Manual) Monocytes # (Manual) Eosinophils # (Manual) Basophils # (Manual) Percent Retic PT INR Fibrinogen D-Dimer ABG pH POC ABG pCO2 POC ABG pO2 ABG pO2 ABG HCO3 ABG O2 Saturation ABG Base Excess ABG Hemoglobin ABG Oxyhemoglobin ABG Sodium ABG Potassium ABG Chloride ABG Glucose Oxyhemoglobin Carboxyhemoglobin Sodium Potassium Chloride Carbon Dioxide BUN Creatinine 8.7 H Glucose POC Glucose 140 H Hemoglobin A1c Calcium Phosphorus Magnesium AST ALT Alkaline Phosphatase Lactate Dehydrogenase C-Reactive Protein Total Protein Albumin Triglycerides Arterial Blood Glucose Arterial Blood Ionized Calcium Urine WBC (Auto) U Epithel Cells (Auto) Urine Creatinine Random Vancomycin Coronavirus (PCR) Crossmatch 03/22/21 03/22/21 03/22/21 13:40 17:14 18:21 WBC RBC Hgb Hct MCH MCHC RDW Plt Count Lymph % (Auto) [place] # (Auto) Eos # (Auto) Seg Neutrophils % Lymphocytes % (Manual) Eosinophils % (Manual) Basophils % (Manual) Nucleated RBC % Seg Neutrophils # Seg Neutrophils # Man Lymphocytes # (Manual) Monocytes # (Manual) Eosinophils # (Manual) Basophils # (Manual) Percent Retic PT 15.8 H INR 1.14 H Fibrinogen D-Dimer > 22364 H ABG pH POC ABG pCO2 POC ABG pO2 ABG pO2 ABG HCO3 ABG O2 Saturation ABG Base Excess ABG Hemoglobin ABG Oxyhemoglobin ABG Sodium ABG Potassium ABG Chloride ABG Glucose Oxyhemoglobin Carboxyhemoglobin Sodium Potassium Chloride Carbon Dioxide BUN Creatinine Glucose POC Glucose 117 H 112 H Hemoglobin A1c Calcium Phosphorus Magnesium AST ALT Alkaline Phosphatase Lactate Dehydrogenase C-Reactive Protein Total Protein Albumin Triglycerides Arterial Blood Glucose Arterial Blood Ionized Calcium Urine WBC (Auto) U Epithel Cells (Auto) Urine Creatinine Random Vancomycin Coronavirus (PCR) Crossmatch 03/22/21 03/22/21 03/23/21 21:25 22:57 04:30 WBC RBC Hgb Hct MCH MCHC RDW Plt Count Lymph % (Auto) [place] # (Auto) Eos # (Auto) Seg Neutrophils % Lymphocytes % (Manual) Eosinophils % (Manual) Basophils % (Manual) Nucleated RBC % Seg Neutrophils # Seg Neutrophils # Man Lymphocytes # (Manual) Monocytes # (Manual) Eosinophils # (Manual) Basophils # (Manual) Percent Retic PT INR Fibrinogen D-Dimer ABG pH 7.188 L* POC ABG pCO2 POC ABG pO2 ABG pO2 97.9 H ABG HCO3 ABG O2 Saturation ABG Base Excess -3.7 L ABG Hemoglobin 9.2 L ABG Oxyhemoglobin ABG Sodium ABG Potassium ABG Chloride ABG Glucose Oxyhemoglobin 94.4 L Carboxyhemoglobin Sodium Potassium Chloride Carbon Dioxide BUN Creatinine Glucose POC Glucose 106 H Hemoglobin A1c Calcium Phosphorus Magnesium AST ALT Alkaline Phosphatase Lactate Dehydrogenase C-Reactive Protein Total Protein Albumin Triglycerides 381 H Arterial Blood Glucose Arterial Blood Ionized Calcium Urine WBC (Auto) U Epithel Cells (Auto) Urine Creatinine Random Vancomycin Coronavirus (PCR) Crossmatch 03/23/21 03/23/21 03/23/21 04:30 04:30 05:37 WBC 20.1 H RBC 3.17 L Hgb 8.6 L Hct 27.2 L MCH 27 L MCHC RDW 17.4 H Plt Count 118 L Lymph % (Auto) [place] # (Auto) Eos # (Auto) Seg Neutrophils % Lymphocytes % (Manual) Eosinophils % (Manual) Basophils % (Manual) Nucleated RBC % Seg Neutrophils # Seg Neutrophils # Man Lymphocytes # (Manual) Monocytes # (Manual) Eosinophils # (Manual) Basophils # (Manual) Percent Retic PT INR Fibrinogen D-Dimer ABG pH POC ABG pCO2 POC ABG pO2 ABG pO2 ABG HCO3 ABG O2 Saturation ABG Base Excess ABG Hemoglobin ABG Oxyhemoglobin ABG Sodium ABG Potassium ABG Chloride ABG Glucose Oxyhemoglobin Carboxyhemoglobin Sodium Potassium 5.2 H Chloride 97.1 L Carbon Dioxide 21 L BUN 82 H Creatinine 9.1 H Glucose 109 H POC Glucose 130 H Hemoglobin A1c Calcium Phosphorus 10.80 H Magnesium 3.50 H AST ALT Alkaline Phosphatase Lactate Dehydrogenase C-Reactive Protein Total Protein Albumin Triglycerides Arterial Blood Glucose Arterial Blood Ionized Calcium Urine WBC (Auto) U Epithel Cells (Auto) Urine Creatinine Random Vancomycin Coronavirus (PCR) Crossmatch 03/23/21 03/23/21 03/23/21 08:44 11:30 16:09 WBC RBC Hgb Hct MCH MCHC RDW Plt Count Lymph % (Auto) [place] # (Auto) Eos # (Auto) Seg Neutrophils % Lymphocytes % (Manual) Eosinophils % (Manual) Basophils % (Manual) Nucleated RBC % Seg Neutrophils # Seg Neutrophils # Man Lymphocytes # (Manual) Monocytes # (Manual) Eosinophils # (Manual) Basophils # (Manual) Percent Retic PT INR Fibrinogen D-Dimer ABG pH 7.190 L POC ABG pCO2 57.9 H POC ABG pO2 79.2 L ABG pO2 ABG HCO3 ABG O2 Saturation ABG Base Excess ABG Hemoglobin 11.8 L ABG Oxyhemoglobin 92.3 L ABG Sodium 131.0 L ABG Potassium 5.0 H ABG Chloride ABG Glucose 122 H Oxyhemoglobin Carboxyhemoglobin 0.4 L Sodium Potassium Chloride Carbon Dioxide BUN Creatinine Glucose POC Glucose 129 H 148 H Hemoglobin A1c Calcium Phosphorus Magnesium AST ALT Alkaline Phosphatase Lactate Dehydrogenase C-Reactive Protein Total Protein Albumin Triglycerides Arterial Blood Glucose 122 H Arterial Blood Ionized Calcium 4.4 L Urine WBC (Auto) U Epithel Cells (Auto) Urine Creatinine Random Vancomycin Coronavirus (PCR) Crossmatch 03/23/21 03/24/21 03/24/21 21:00 03:35 04:00 WBC 17.8 H RBC 2.96 L Hgb 8.1 L Hct 25.0 L MCH 27 L MCHC RDW 17.7 H Plt Count 124 L Lymph % (Auto) [place] # (Auto) Eos # (Auto) Seg Neutrophils % Lymphocytes % (Manual) Eosinophils % (Manual) Basophils % (Manual) Nucleated RBC % Seg Neutrophils # Seg Neutrophils # Man Lymphocytes # (Manual) Monocytes # (Manual) Eosinophils # (Manual) Basophils # (Manual) Percent Retic PT INR Fibrinogen D-Dimer ABG pH 7.223 L POC ABG pCO2 50.3 H POC ABG pO2 114.4 H ABG pO2 ABG HCO3 ABG O2 Saturation ABG Base Excess ABG Hemoglobin 8.8 L ABG Oxyhemoglobin ABG Sodium 130.4 L ABG Potassium 5.1 H ABG Chloride ABG Glucose 126 H Oxyhemoglobin Carboxyhemoglobin 0.2 L Sodium Potassium Chloride Carbon Dioxide BUN Creatinine Glucose POC Glucose 148 H Hemoglobin A1c Calcium Phosphorus Magnesium AST ALT Alkaline Phosphatase Lactate Dehydrogenase C-Reactive Protein Total Protein Albumin Triglycerides Arterial Blood Glucose 126 H Arterial Blood Ionized Calcium 4.4 L Urine WBC (Auto) U Epithel Cells (Auto) Urine Creatinine Random Vancomycin Coronavirus (PCR) Crossmatch 03/24/21 03/24/21 03/24/21 04:00 06:49 12:29 WBC RBC Hgb Hct MCH MCHC RDW Plt Count Lymph % (Auto) [place] # (Auto) Eos # (Auto) Seg Neutrophils % Lymphocytes % (Manual) Eosinophils % (Manual) Basophils % (Manual) Nucleated RBC % Seg Neutrophils # Seg Neutrophils # Man Lymphocytes # (Manual) Monocytes # (Manual) Eosinophils # (Manual) Basophils # (Manual) Percent Retic PT INR Fibrinogen D-Dimer ABG pH POC ABG pCO2 POC ABG pO2 ABG pO2 ABG HCO3 ABG O2 Saturation ABG Base Excess ABG Hemoglobin ABG Oxyhemoglobin ABG Sodium ABG Potassium ABG Chloride ABG Glucose Oxyhemoglobin Carboxyhemoglobin Sodium Potassium Chloride 95.6 L Carbon Dioxide 20 L BUN 108 H Creatinine 10.8 H Glucose 155 H POC Glucose 136 H 142 H Hemoglobin A1c Calcium Phosphorus Magnesium AST ALT Alkaline Phosphatase Lactate Dehydrogenase C-Reactive Protein Total Protein Albumin Triglycerides Arterial Blood Glucose Arterial Blood Ionized Calcium Urine WBC (Auto) U Epithel Cells (Auto) Urine Creatinine Random Vancomycin Coronavirus (PCR) Crossmatch 03/24/21 03/25/21 03/25/21 21:35 00:15 05:51 WBC RBC Hgb Hct MCH MCHC RDW Plt Count Lymph % (Auto) [place] # (Auto) Eos # (Auto) Seg Neutrophils % Lymphocytes % (Manual) Eosinophils % (Manual) Basophils % (Manual) Nucleated RBC % Seg Neutrophils # Seg Neutrophils # Man Lymphocytes # (Manual) Monocytes # (Manual) Eosinophils # (Manual) Basophils # (Manual) Percent Retic PT INR Fibrinogen D-Dimer ABG pH 7.241 L POC ABG pCO2 POC ABG pO2 ABG pO2 72.4 L ABG HCO3 ABG O2 Saturation 90.3 L ABG Base Excess ABG Hemoglobin 7.9 L ABG Oxyhemoglobin ABG Sodium ABG Potassium ABG Chloride ABG Glucose Oxyhemoglobin 88.4 L Carboxyhemoglobin Sodium Potassium Chloride Carbon Dioxide BUN Creatinine Glucose POC Glucose 110 H 121 H Hemoglobin A1c Calcium Phosphorus Magnesium AST ALT Alkaline Phosphatase Lactate Dehydrogenase C-Reactive Protein Total Protein Albumin Triglycerides Arterial Blood Glucose Arterial Blood Ionized Calcium Urine WBC (Auto) U Epithel Cells (Auto) Urine Creatinine Random Vancomycin Coronavirus (PCR) Crossmatch 03/25/21 03/25/21 03/25/21 05:54 05:54 12:21 WBC 12.4 H RBC 2.52 L Hgb 6.9 L Hct 21.1 L MCH MCHC RDW 17.4 H Plt Count 102 L Lymph % (Auto) [place] # (Auto) Eos # (Auto) Seg Neutrophils % Lymphocytes % (Manual) Eosinophils % (Manual) Basophils % (Manual) Nucleated RBC % Seg Neutrophils # Seg Neutrophils # Man Lymphocytes # (Manual) Monocytes # (Manual) Eosinophils # (Manual) Basophils # (Manual) Percent Retic PT INR Fibrinogen D-Dimer ABG pH POC ABG pCO2 POC ABG pO2 ABG pO2 ABG HCO3 ABG O2 Saturation ABG Base Excess ABG Hemoglobin ABG Oxyhemoglobin ABG Sodium ABG Potassium ABG Chloride ABG Glucose Oxyhemoglobin Carboxyhemoglobin Sodium Potassium Chloride 96.7 L Carbon Dioxide BUN 81 H Creatinine 8.1 H Glucose 116 H POC Glucose 138 H Hemoglobin A1c Calcium 8.2 L Phosphorus Magnesium AST ALT Alkaline Phosphatase Lactate Dehydrogenase C-Reactive Protein Total Protein Albumin Triglycerides Arterial Blood Glucose Arterial Blood Ionized Calcium Urine WBC (Auto) U Epithel Cells (Auto) Urine Creatinine Random Vancomycin Coronavirus (PCR) Crossmatch 03/25/21 03/25/21 03/25/21 13:45 17:32 21:30 WBC RBC Hgb Hct MCH MCHC RDW Plt Count Lymph % (Auto) [place] # (Auto) Eos # (Auto) Seg Neutrophils % Lymphocytes % (Manual) Eosinophils % (Manual) Basophils % (Manual) Nucleated RBC % Seg Neutrophils # Seg Neutrophils # Man Lymphocytes # (Manual) Monocytes # (Manual) Eosinophils # (Manual) Basophils # (Manual) Percent Retic PT INR Fibrinogen D-Dimer ABG pH POC ABG pCO2 POC ABG pO2 ABG pO2 70.2 L ABG HCO3 ABG O2 Saturation ABG Base Excess ABG Hemoglobin 6.8 L ABG Oxyhemoglobin ABG Sodium ABG Potassium ABG Chloride ABG Glucose Oxyhemoglobin 94.5 L Carboxyhemoglobin Sodium Potassium Chloride Carbon Dioxide BUN Creatinine Glucose POC Glucose 110 H Hemoglobin A1c Calcium Phosphorus Magnesium AST ALT Alkaline Phosphatase Lactate Dehydrogenase C-Reactive Protein Total Protein Albumin Triglycerides Arterial Blood Glucose Arterial Blood Ionized Calcium Urine WBC (Auto) U Epithel Cells (Auto) Urine Creatinine Random Vancomycin Coronavirus (PCR) Crossmatch See Detail 03/25/21 03/25/21 03/26/21 23:29 Unknown 05:15 WBC 12.4 H 14.0 H RBC 2.49 L 2.83 L Hgb 6.8 L 7.6 L Hct 20.9 L 23.6 L MCH 27 L 27 L MCHC RDW 18.0 H 17.1 H Plt Count 107 L 116 L Lymph % (Auto) [place] # (Auto) Eos # (Auto) Seg Neutrophils % Lymphocytes % (Manual) Eosinophils % (Manual) Basophils % (Manual) Nucleated RBC % Seg Neutrophils # Seg Neutrophils # Man Lymphocytes # (Manual) Monocytes # (Manual) Eosinophils # (Manual) Basophils # (Manual) Percent Retic PT INR Fibrinogen D-Dimer ABG pH POC ABG pCO2 POC ABG pO2 ABG pO2 ABG HCO3 ABG O2 Saturation ABG Base Excess ABG Hemoglobin ABG Oxyhemoglobin ABG Sodium ABG Potassium ABG Chloride ABG Glucose Oxyhemoglobin Carboxyhemoglobin Sodium Potassium Chloride Carbon Dioxide BUN Creatinine Glucose POC Glucose 113 H Hemoglobin A1c Calcium Phosphorus Magnesium AST ALT Alkaline Phosphatase Lactate Dehydrogenase C-Reactive Protein Total Protein Albumin Triglycerides Arterial Blood Glucose Arterial Blood Ionized Calcium Urine WBC (Auto) U Epithel Cells (Auto) Urine Creatinine Random Vancomycin Coronavirus (PCR) Crossmatch 03/26/21 03/26/21 03/26/21 05:15 05:35 09:50 WBC RBC Hgb Hct MCH MCHC RDW Plt Count Lymph % (Auto) [place] # (Auto) Eos # (Auto) Seg Neutrophils % Lymphocytes % (Manual) Eosinophils % (Manual) Basophils % (Manual) Nucleated RBC % Seg Neutrophils # Seg Neutrophils # Man Lymphocytes # (Manual) Monocytes # (Manual) Eosinophils # (Manual) Basophils # (Manual) Percent Retic PT INR Fibrinogen D-Dimer ABG pH POC ABG pCO2 POC ABG pO2 ABG pO2 79.9 L ABG HCO3 ABG O2 Saturation ABG Base Excess ABG Hemoglobin 7.1 L ABG Oxyhemoglobin ABG Sodium ABG Potassium ABG Chloride ABG Glucose Oxyhemoglobin 94.9 L Carboxyhemoglobin Sodium Potassium 3.4 L Chloride Carbon Dioxide BUN 70 H Creatinine 7.3 H Glucose 142 H POC Glucose 130 H Hemoglobin A1c Calcium 8.2 L Phosphorus Magnesium AST ALT Alkaline Phosphatase Lactate Dehydrogenase C-Reactive Protein Total Protein Albumin Triglycerides 254 H Arterial Blood Glucose Arterial Blood Ionized Calcium Urine WBC (Auto) U Epithel Cells (Auto) Urine Creatinine Random Vancomycin Coronavirus (PCR) Crossmatch 03/26/21 03/26/21 03/26/21 11:45 16:36 23:33 WBC RBC Hgb Hct MCH MCHC RDW Plt Count Lymph % (Auto) [place] # (Auto) Eos # (Auto) Seg Neutrophils % Lymphocytes % (Manual) Eosinophils % (Manual) Basophils % (Manual) Nucleated RBC % Seg Neutrophils # Seg Neutrophils # Man Lymphocytes # (Manual) Monocytes # (Manual) Eosinophils # (Manual) Basophils # (Manual) Percent Retic PT INR Fibrinogen D-Dimer ABG pH POC ABG pCO2 POC ABG pO2 ABG pO2 ABG HCO3 ABG O2 Saturation ABG Base Excess ABG Hemoglobin ABG Oxyhemoglobin ABG Sodium ABG Potassium ABG Chloride ABG Glucose Oxyhemoglobin Carboxyhemoglobin Sodium Potassium Chloride Carbon Dioxide BUN Creatinine Glucose POC Glucose 123 H 121 H 120 H Hemoglobin A1c Calcium Phosphorus Magnesium AST ALT Alkaline Phosphatase Lactate Dehydrogenase C-Reactive Protein Total Protein Albumin Triglycerides Arterial Blood Glucose Arterial Blood Ionized Calcium Urine WBC (Auto) U Epithel Cells (Auto) Urine Creatinine Random Vancomycin Coronavirus (PCR) Crossmatch 03/27/21 03/27/21 03/27/21 03:20 04:14 08:20 WBC 13.2 H RBC 2.82 L Hgb 7.9 L Hct 23.5 L MCH MCHC RDW 17.3 H Plt Count 125 L Lymph % (Auto) [place] # (Auto) Eos # (Auto) Seg Neutrophils % Lymphocytes % (Manual) Eosinophils % (Manual) Basophils % (Manual) Nucleated RBC % Seg Neutrophils # Seg Neutrophils # Man Lymphocytes # (Manual) Monocytes # (Manual) Eosinophils # (Manual) Basophils # (Manual) Percent Retic PT INR Fibrinogen D-Dimer ABG pH POC ABG pCO2 50.0 H POC ABG pO2 58.3 L ABG pO2 ABG HCO3 ABG O2 Saturation ABG Base Excess ABG Hemoglobin 11.3 L ABG Oxyhemoglobin 88.5 L ABG Sodium ABG Potassium ABG Chloride ABG Glucose 132 H Oxyhemoglobin Carboxyhemoglobin 0.2 L Sodium Potassium Chloride Carbon Dioxide BUN Creatinine Glucose POC Glucose 119 H Hemoglobin A1c Calcium Phosphorus Magnesium AST ALT Alkaline Phosphatase Lactate Dehydrogenase C-Reactive Protein Total Protein Albumin Triglycerides Arterial Blood Glucose 132 H Arterial Blood Ionized Calcium Urine WBC (Auto) U Epithel Cells (Auto) Urine Creatinine Random Vancomycin Coronavirus (PCR) Crossmatch 03/27/21 03/27/21 03/27/21 08:20 11:39 17:32 WBC RBC Hgb Hct MCH MCHC RDW Plt Count Lymph % (Auto) [place] # (Auto) Eos # (Auto) Seg Neutrophils % Lymphocytes % (Manual) Eosinophils % (Manual) Basophils % (Manual) Nucleated RBC % Seg Neutrophils # Seg Neutrophils # Man Lymphocytes # (Manual) Monocytes # (Manual) Eosinophils # (Manual) Basophils # (Manual) Percent Retic PT INR Fibrinogen D-Dimer ABG pH POC ABG pCO2 POC ABG pO2 ABG pO2 ABG HCO3 ABG O2 Saturation ABG Base Excess ABG Hemoglobin ABG Oxyhemoglobin ABG Sodium ABG Potassium ABG Chloride ABG Glucose Oxyhemoglobin Carboxyhemoglobin Sodium Potassium Chloride Carbon Dioxide BUN 57 H Creatinine 6.8 H Glucose 131 H POC Glucose 121 H 126 H Hemoglobin A1c Calcium Phosphorus Magnesium AST ALT Alkaline Phosphatase Lactate Dehydrogenase C-Reactive Protein Total Protein Albumin Triglycerides Arterial Blood Glucose Arterial Blood Ionized Calcium Urine WBC (Auto) U Epithel Cells (Auto) Urine Creatinine Random Vancomycin Coronavirus (PCR) Crossmatch 03/28/21 03/28/21 03/28/21 00:10 04:45 05:25 WBC RBC Hgb Hct MCH MCHC RDW Plt Count Lymph % (Auto) [place] # (Auto) Eos # (Auto) Seg Neutrophils % Lymphocytes % (Manual) Eosinophils % (Manual) Basophils % (Manual) Nucleated RBC % Seg Neutrophils # Seg Neutrophils # Man Lymphocytes # (Manual) Monocytes # (Manual) Eosinophils # (Manual) Basophils # (Manual) Percent Retic PT INR Fibrinogen D-Dimer ABG pH POC ABG pCO2 POC ABG pO2 ABG pO2 57.6 L ABG HCO3 27.1 H ABG O2 Saturation 88.5 L ABG Base Excess ABG Hemoglobin ABG Oxyhemoglobin ABG Sodium ABG Potassium ABG Chloride ABG Glucose Oxyhemoglobin 86.6 L Carboxyhemoglobin Sodium Potassium Chloride Carbon Dioxide BUN Creatinine Glucose POC Glucose 113 H 121 H Hemoglobin A1c Calcium Phosphorus Magnesium AST ALT Alkaline Phosphatase Lactate Dehydrogenase C-Reactive Protein Total Protein Albumin Triglycerides Arterial Blood Glucose Arterial Blood Ionized Calcium Urine WBC (Auto) U Epithel Cells (Auto) Urine Creatinine Random Vancomycin Coronavirus (PCR) Crossmatch 03/28/21 03/28/21 03/28/21 09:37 09:37 11:48 WBC 16.3 H RBC 2.92 L Hgb 8.2 L Hct 24.8 L MCH MCHC RDW 17.5 H Plt Count Lymph % (Auto) 10.7 L [place] # (Auto) 0.9 H Eos # (Auto) 0.6 H Seg Neutrophils % 80.0 H Lymphocytes % (Manual) Eosinophils % (Manual) Basophils % (Manual) Nucleated RBC % Seg Neutrophils # 13.0 H Seg Neutrophils # Man Lymphocytes # (Manual) Monocytes # (Manual) Eosinophils # (Manual) Basophils # (Manual) Percent Retic PT INR Fibrinogen D-Dimer ABG pH POC ABG pCO2 POC ABG pO2 ABG pO2 ABG HCO3 ABG O2 Saturation ABG Base Excess ABG Hemoglobin ABG Oxyhemoglobin ABG Sodium ABG Potassium ABG Chloride ABG Glucose Oxyhemoglobin Carboxyhemoglobin Sodium Potassium Chloride Carbon Dioxide BUN 61 H Creatinine 7.7 H Glucose 148 H POC Glucose 123 H Hemoglobin A1c Calcium Phosphorus Magnesium AST ALT Alkaline Phosphatase Lactate Dehydrogenase C-Reactive Protein Total Protein Albumin Triglycerides Arterial Blood Glucose Arterial Blood Ionized Calcium Urine WBC (Auto) U Epithel Cells (Auto) Urine Creatinine Random Vancomycin Coronavirus (PCR) Crossmatch 03/28/21 03/28/21 03/28/21 17:33 21:08 23:38 WBC RBC Hgb Hct MCH MCHC RDW Plt Count Lymph % (Auto) [place] # (Auto) Eos # (Auto) Seg Neutrophils % Lymphocytes % (Manual) Eosinophils % (Manual) Basophils % (Manual) Nucleated RBC % Seg Neutrophils # Seg Neutrophils # Man Lymphocytes # (Manual) Monocytes # (Manual) Eosinophils # (Manual) Basophils # (Manual) Percent Retic PT INR Fibrinogen D-Dimer ABG pH POC ABG pCO2 POC ABG pO2 80.5 L ABG pO2 ABG HCO3 ABG O2 Saturation ABG Base Excess ABG Hemoglobin 9.5 L ABG Oxyhemoglobin ABG Sodium 133.3 L ABG Potassium ABG Chloride ABG Glucose 134 H Oxyhemoglobin Carboxyhemoglobin 0.3 L Sodium Potassium Chloride Carbon Dioxide BUN Creatinine Glucose POC Glucose 128 H 112 H Hemoglobin A1c Calcium Phosphorus Magnesium AST ALT Alkaline Phosphatase Lactate Dehydrogenase C-Reactive Protein Total Protein Albumin Triglycerides Arterial Blood Glucose 134 H Arterial Blood Ionized Calcium Urine WBC (Auto) U Epithel Cells (Auto) Urine Creatinine Random Vancomycin Coronavirus (PCR) Crossmatch 03/29/21 03/29/21 03/29/21 04:45 04:45 04:45 WBC 17.5 H RBC 3.15 L Hgb 8.8 L Hct 27.2 L MCH MCHC RDW 17.9 H Plt Count 132 L Lymph % (Auto) [place] # (Auto) Eos # (Auto) Seg Neutrophils % Lymphocytes % (Manual) Eosinophils % (Manual) Basophils % (Manual) Nucleated RBC % Seg Neutrophils # Seg Neutrophils # Man Lymphocytes # (Manual) Monocytes # (Manual) Eosinophils # (Manual) Basophils # (Manual) Percent Retic PT INR Fibrinogen D-Dimer ABG pH POC ABG pCO2 POC ABG pO2 ABG pO2 ABG HCO3 ABG O2 Saturation ABG Base Excess ABG Hemoglobin ABG Oxyhemoglobin ABG Sodium ABG Potassium ABG Chloride ABG Glucose Oxyhemoglobin Carboxyhemoglobin Sodium Potassium Chloride 97.7 L Carbon Dioxide 21 L BUN 78 H Creatinine 9.5 H Glucose 132 H POC Glucose Hemoglobin A1c Calcium Phosphorus Magnesium AST ALT Alkaline Phosphatase Lactate Dehydrogenase C-Reactive Protein Total Protein Albumin 2.2 L Triglycerides 385 H Arterial Blood Glucose Arterial Blood Ionized Calcium Urine WBC (Auto) U Epithel Cells (Auto) Urine Creatinine Random Vancomycin Coronavirus (PCR) Crossmatch 03/29/21 03/29/21 03/29/21 11:35 16:50 21:06 WBC RBC Hgb Hct MCH MCHC RDW Plt Count Lymph % (Auto) [place] # (Auto) Eos # (Auto) Seg Neutrophils % Lymphocytes % (Manual) Eosinophils % (Manual) Basophils % (Manual) Nucleated RBC % Seg Neutrophils # Seg Neutrophils # Man Lymphocytes # (Manual) Monocytes # (Manual) Eosinophils # (Manual) Basophils # (Manual) Percent Retic PT INR Fibrinogen D-Dimer ABG pH POC ABG pCO2 POC ABG pO2 ABG pO2 64.9 L ABG HCO3 ABG O2 Saturation ABG Base Excess -5.2 L ABG Hemoglobin ABG Oxyhemoglobin ABG Sodium ABG Potassium ABG Chloride ABG Glucose Oxyhemoglobin 85.1 L Carboxyhemoglobin Sodium Potassium Chloride Carbon Dioxide BUN Creatinine Glucose POC Glucose 148 H 133 H Hemoglobin A1c Calcium Phosphorus Magnesium AST ALT Alkaline Phosphatase Lactate Dehydrogenase C-Reactive Protein Total Protein Albumin Triglycerides Arterial Blood Glucose Arterial Blood Ionized Calcium Urine WBC (Auto) U Epithel Cells (Auto) Urine Creatinine Random Vancomycin Coronavirus (PCR) Crossmatch 03/29/21 03/30/21 03/30/21 Unknown 00:13 04:00 WBC 15.7 H RBC 3.18 L Hgb 8.6 L Hct 27.3 L MCH 27 L MCHC RDW 18.0 H Plt Count 86 L Lymph % (Auto) [place] # (Auto) Eos # (Auto) Seg Neutrophils % Lymphocytes % (Manual) Eosinophils % (Manual) Basophils % (Manual) Nucleated RBC % Seg Neutrophils # Seg Neutrophils # Man Lymphocytes # (Manual) Monocytes # (Manual) Eosinophils # (Manual) Basophils # (Manual) Percent Retic PT INR Fibrinogen D-Dimer ABG pH 7.258 L POC ABG pCO2 POC ABG pO2 ABG pO2 ABG HCO3 ABG O2 Saturation ABG Base Excess -4.9 L ABG Hemoglobin 8.8 L ABG Oxyhemoglobin ABG Sodium ABG Potassium ABG Chloride ABG Glucose Oxyhemoglobin 93.9 L Carboxyhemoglobin Sodium Potassium Chloride Carbon Dioxide BUN Creatinine Glucose POC Glucose 129 H Hemoglobin A1c Calcium Phosphorus Magnesium AST ALT Alkaline Phosphatase Lactate Dehydrogenase C-Reactive Protein Total Protein Albumin Triglycerides Arterial Blood Glucose Arterial Blood Ionized Calcium Urine WBC (Auto) U Epithel Cells (Auto) Urine Creatinine Random Vancomycin Coronavirus (PCR) Crossmatch 03/30/21 03/30/21 03/30/21 04:00 04:00 06:02 WBC RBC Hgb Hct MCH MCHC RDW Plt Count Lymph % (Auto) [place] # (Auto) Eos # (Auto) Seg Neutrophils % Lymphocytes % (Manual) Eosinophils % (Manual) Basophils % (Manual) Nucleated RBC % Seg Neutrophils # Seg Neutrophils # Man Lymphocytes # (Manual) Monocytes # (Manual) Eosinophils # (Manual) Basophils # (Manual) Percent Retic PT INR Fibrinogen D-Dimer 2607.12 H ABG pH POC ABG pCO2 POC ABG pO2 ABG pO2 ABG HCO3 ABG O2 Saturation ABG Base Excess ABG Hemoglobin ABG Oxyhemoglobin ABG Sodium ABG Potassium ABG Chloride ABG Glucose Oxyhemoglobin Carboxyhemoglobin Sodium 133 L Potassium 5.2 H D Chloride 91.5 L Carbon Dioxide 18 L BUN 101 H Creatinine 10.6 H Glucose 149 H POC Glucose 130 H Hemoglobin A1c Calcium Phosphorus 10.30 H Magnesium AST ALT Alkaline Phosphatase Lactate Dehydrogenase C-Reactive Protein 21.50 H Total Protein Albumin Triglycerides Arterial Blood Glucose Arterial Blood Ionized Calcium Urine WBC (Auto) U Epithel Cells (Auto) Urine Creatinine Random Vancomycin Coronavirus (PCR) Crossmatch 03/30/21 03/30/21 03/30/21 10:36 11:48 17:20 WBC RBC Hgb Hct MCH MCHC RDW Plt Count Lymph % (Auto) [place] # (Auto) Eos # (Auto) Seg Neutrophils % Lymphocytes % (Manual) Eosinophils % (Manual) Basophils % (Manual) Nucleated RBC % Seg Neutrophils # Seg Neutrophils # Man Lymphocytes # (Manual) Monocytes # (Manual) Eosinophils # (Manual) Basophils # (Manual) Percent Retic PT INR Fibrinogen D-Dimer ABG pH 7.224 L POC ABG pCO2 49.1 H POC ABG pO2 61.5 L ABG pO2 ABG HCO3 ABG O2 Saturation ABG Base Excess ABG Hemoglobin 10.2 L ABG Oxyhemoglobin 86.2 L ABG Sodium 129.6 L ABG Potassium 5.4 H ABG Chloride 96.0 L ABG Glucose 161 H Oxyhemoglobin Carboxyhemoglobin Sodium Potassium Chloride Carbon Dioxide BUN Creatinine Glucose POC Glucose 163 H 130 H Hemoglobin A1c Calcium Phosphorus Magnesium AST ALT Alkaline Phosphatase Lactate Dehydrogenase C-Reactive Protein Total Protein Albumin Triglycerides Arterial Blood Glucose 161 H Arterial Blood Ionized Calcium 4.4 L Urine WBC (Auto) U Epithel Cells (Auto) Urine Creatinine Random Vancomycin Coronavirus (PCR) Crossmatch 03/30/21 03/31/21 03/31/21 23:49 00:28 05:20 WBC 17.3 H RBC 2.99 L Hgb 8.2 L Hct 25.3 L MCH 27 L MCHC RDW 18.3 H Plt Count 126 L Lymph % (Auto) [place] # (Auto) Eos # (Auto) Seg Neutrophils % Lymphocytes % (Manual) Eosinophils % (Manual) Basophils % (Manual) Nucleated RBC % Seg Neutrophils # Seg Neutrophils # Man Lymphocytes # (Manual) Monocytes # (Manual) Eosinophils # (Manual) Basophils # (Manual) Percent Retic PT INR Fibrinogen D-Dimer ABG pH 7.249 L POC ABG pCO2 POC ABG pO2 77.7 L ABG pO2 ABG HCO3 ABG O2 Saturation ABG Base Excess ABG Hemoglobin 9.0 L ABG Oxyhemoglobin 92.9 L ABG Sodium 130.4 L ABG Potassium 4.7 H ABG Chloride ABG Glucose 166 H Oxyhemoglobin Carboxyhemoglobin 0.4 L Sodium Potassium Chloride Carbon Dioxide BUN Creatinine Glucose POC Glucose 143 H Hemoglobin A1c Calcium Phosphorus Magnesium AST ALT Alkaline Phosphatase Lactate Dehydrogenase C-Reactive Protein Total Protein Albumin Triglycerides Arterial Blood Glucose 166 H Arterial Blood Ionized Calcium 4.3 L Urine WBC (Auto) U Epithel Cells (Auto) Urine Creatinine Random Vancomycin Coronavirus (PCR) Crossmatch 03/31/21 03/31/21 03/31/21 05:20 06:18 09:44 WBC RBC Hgb Hct MCH MCHC RDW Plt Count Lymph % (Auto) [place] # (Auto) Eos # (Auto) Seg Neutrophils % Lymphocytes % (Manual) Eosinophils % (Manual) Basophils % (Manual) Nucleated RBC % Seg Neutrophils # Seg Neutrophils # Man Lymphocytes # (Manual) Monocytes # (Manual) Eosinophils # (Manual) Basophils # (Manual) Percent Retic PT INR Fibrinogen D-Dimer ABG pH 7.247 L POC ABG pCO2 POC ABG pO2 ABG pO2 ABG HCO3 ABG O2 Saturation 94.4 L ABG Base Excess -5.1 L ABG Hemoglobin 8.2 L ABG Oxyhemoglobin ABG Sodium ABG Potassium ABG Chloride ABG Glucose Oxyhemoglobin 92.4 L Carboxyhemoglobin Sodium Potassium Chloride Carbon Dioxide BUN Creatinine Glucose POC Glucose 155 H Hemoglobin A1c Calcium Phosphorus 8.20 H D Magnesium AST ALT Alkaline Phosphatase Lactate Dehydrogenase C-Reactive Protein Total Protein Albumin Triglycerides Arterial Blood Glucose Arterial Blood Ionized Calcium Urine WBC (Auto) U Epithel Cells (Auto) Urine Creatinine Random Vancomycin Coronavirus (PCR) Crossmatch 03/31/21 03/31/21 03/31/21 09:49 09:55 09:55 WBC RBC Hgb Hct MCH MCHC RDW Plt Count Lymph % (Auto) [place] # (Auto) Eos # (Auto) Seg Neutrophils % Lymphocytes % (Manual) Eosinophils % (Manual) Basophils % (Manual) Nucleated RBC % Seg Neutrophils # Seg Neutrophils # Man Lymphocytes # (Manual) Monocytes # (Manual) Eosinophils # (Manual) Basophils # (Manual) Percent Retic 4.52 H PT 16.5 H INR 1.20 H Fibrinogen D-Dimer ABG pH POC ABG pCO2 POC ABG pO2 ABG pO2 ABG HCO3 ABG O2 Saturation ABG Base Excess ABG Hemoglobin ABG Oxyhemoglobin ABG Sodium ABG Potassium ABG Chloride ABG Glucose Oxyhemoglobin Carboxyhemoglobin Sodium 133 L Potassium Chloride 92.8 L Carbon Dioxide 20 L BUN 87 H Creatinine 8.9 H Glucose 177 H POC Glucose Hemoglobin A1c Calcium 8.2 L Phosphorus Magnesium AST 169 H ALT Alkaline Phosphatase 187 H Lactate Dehydrogenase C-Reactive Protein Total Protein Albumin 2.3 L Triglycerides Arterial Blood Glucose Arterial Blood Ionized Calcium Urine WBC (Auto) U Epithel Cells (Auto) Urine Creatinine Random Vancomycin Coronavirus (PCR) Crossmatch 03/31/21 03/31/21 03/31/21 09:55 09:55 11:25 WBC RBC Hgb Hct MCH MCHC RDW Plt Count Lymph % (Auto) [place] # (Auto) Eos # (Auto) Seg Neutrophils % Lymphocytes % (Manual) Eosinophils % (Manual) Basophils % (Manual) Nucleated RBC % Seg Neutrophils # Seg Neutrophils # Man Lymphocytes # (Manual) Monocytes # (Manual) Eosinophils # (Manual) Basophils # (Manual) Percent Retic PT INR Fibrinogen 491 H D-Dimer ABG pH POC ABG pCO2 POC ABG pO2 ABG pO2 ABG HCO3 ABG O2 Saturation ABG Base Excess ABG Hemoglobin ABG Oxyhemoglobin ABG Sodium ABG Potassium ABG Chloride ABG Glucose Oxyhemoglobin Carboxyhemoglobin Sodium Potassium Chloride Carbon Dioxide BUN Creatinine Glucose POC Glucose 178 H Hemoglobin A1c Calcium Phosphorus Magnesium AST ALT Alkaline Phosphatase Lactate Dehydrogenase 509 H C-Reactive Protein Total Protein Albumin Triglycerides Arterial Blood Glucose Arterial Blood Ionized Calcium Urine WBC (Auto) U Epithel Cells (Auto) Urine Creatinine Random Vancomycin Coronavirus (PCR) Crossmatch 03/31/21 03/31/21 03/31/21 12:30 17:40 21:00 WBC RBC Hgb Hct MCH MCHC RDW Plt Count Lymph % (Auto) [place] # (Auto) Eos # (Auto) Seg Neutrophils % Lymphocytes % (Manual) Eosinophils % (Manual) Basophils % (Manual) Nucleated RBC % Seg Neutrophils # Seg Neutrophils # Man Lymphocytes # (Manual) Monocytes # (Manual) Eosinophils # (Manual) Basophils # (Manual) Percent Retic PT INR Fibrinogen D-Dimer ABG pH 7.235 L 7.216 L POC ABG pCO2 POC ABG pO2 ABG pO2 76.8 L 113.9 H ABG HCO3 ABG O2 Saturation 93.2 L ABG Base Excess -5.3 L -7.3 L ABG Hemoglobin 6.3 L 8.0 L ABG Oxyhemoglobin ABG Sodium ABG Potassium ABG Chloride ABG Glucose Oxyhemoglobin 91.1 L Carboxyhemoglobin Sodium Potassium Chloride Carbon Dioxide BUN Creatinine Glucose POC Glucose 245 H Hemoglobin A1c Calcium Phosphorus Magnesium AST ALT Alkaline Phosphatase Lactate Dehydrogenase C-Reactive Protein Total Protein Albumin Triglycerides Arterial Blood Glucose Arterial Blood Ionized Calcium Urine WBC (Auto) U Epithel Cells (Auto) Urine Creatinine Random Vancomycin Coronavirus (PCR) Crossmatch 04/01/21 04/01/21 04/01/21 00:11 05:09 08:25 WBC RBC Hgb Hct MCH MCHC RDW Plt Count Lymph % (Auto) [place] # (Auto) Eos # (Auto) Seg Neutrophils % Lymphocytes % (Manual) Eosinophils % (Manual) Basophils % (Manual) Nucleated RBC % Seg Neutrophils # Seg Neutrophils # Man Lymphocytes # (Manual) Monocytes # (Manual) Eosinophils # (Manual) Basophils # (Manual) Percent Retic PT INR Fibrinogen D-Dimer ABG pH 7.225 L POC ABG pCO2 POC ABG pO2 ABG pO2 76.4 L ABG HCO3 ABG O2 Saturation 92.2 L ABG Base Excess -7.6 L ABG Hemoglobin 7.3 L ABG Oxyhemoglobin ABG Sodium ABG Potassium ABG Chloride ABG Glucose Oxyhemoglobin 90.2 L Carboxyhemoglobin Sodium Potassium Chloride Carbon Dioxide BUN Creatinine Glucose POC Glucose 209 H 173 H Hemoglobin A1c Calcium Phosphorus Magnesium AST ALT Alkaline Phosphatase Lactate Dehydrogenase C-Reactive Protein Total Protein Albumin Triglycerides Arterial Blood Glucose Arterial Blood Ionized Calcium Urine WBC (Auto) U Epithel Cells (Auto) Urine Creatinine Random Vancomycin Coronavirus (PCR) Crossmatch 04/01/21 04/01/21 04/01/21 12:01 12:05 17:55 WBC RBC Hgb Hct MCH MCHC RDW Plt Count Lymph % (Auto) [place] # (Auto) Eos # (Auto) Seg Neutrophils % Lymphocytes % (Manual) Eosinophils % (Manual) Basophils % (Manual) Nucleated RBC % Seg Neutrophils # Seg Neutrophils # Man Lymphocytes # (Manual) Monocytes # (Manual) Eosinophils # (Manual) Basophils # (Manual) Percent Retic PT INR Fibrinogen D-Dimer ABG pH POC ABG pCO2 POC ABG pO2 ABG pO2 ABG HCO3 ABG O2 Saturation ABG Base Excess ABG Hemoglobin ABG Oxyhemoglobin ABG Sodium ABG Potassium ABG Chloride ABG Glucose Oxyhemoglobin Carboxyhemoglobin Sodium Potassium 5.9 H Chloride Carbon Dioxide BUN Creatinine Glucose POC Glucose 202 H 217 H Hemoglobin A1c Calcium Phosphorus Magnesium AST ALT Alkaline Phosphatase Lactate Dehydrogenase C-Reactive Protein Total Protein Albumin Triglycerides Arterial Blood Glucose Arterial Blood Ionized Calcium Urine WBC (Auto) U Epithel Cells (Auto) Urine Creatinine Random Vancomycin Coronavirus (PCR) Crossmatch 04/01/21 04/01/21 04/01/21 Unknown Unknown 23:59 WBC 27.2 H RBC 3.08 L Hgb 8.4 L Hct 26.0 L MCH 27 L MCHC RDW 18.5 H Plt Count Lymph % (Auto) [place] # (Auto) Eos # (Auto) Seg Neutrophils % Lymphocytes % (Manual) Eosinophils % (Manual) Basophils % (Manual) Nucleated RBC % Seg Neutrophils # Seg Neutrophils # Man Lymphocytes # (Manual) Monocytes # (Manual) Eosinophils # (Manual) Basophils # (Manual) Percent Retic PT INR Fibrinogen D-Dimer ABG pH POC ABG pCO2 POC ABG pO2 ABG pO2 ABG HCO3 ABG O2 Saturation ABG Base Excess ABG Hemoglobin ABG Oxyhemoglobin ABG Sodium ABG Potassium ABG Chloride ABG Glucose Oxyhemoglobin Carboxyhemoglobin Sodium 132 L Potassium 6.6 H* D Chloride 91.3 L Carbon Dioxide 17 L BUN 104 H Creatinine 9.3 H Glucose 199 H POC Glucose 172 H Hemoglobin A1c Calcium 8.3 L Phosphorus Magnesium AST 236 H ALT 93 H Alkaline Phosphatase 191 H Lactate Dehydrogenase C-Reactive Protein Total Protein Albumin 2.4 L Triglycerides Arterial Blood Glucose Arterial Blood Ionized Calcium Urine WBC (Auto) U Epithel Cells (Auto) Urine Creatinine Random Vancomycin Coronavirus (PCR) Crossmatch 04/02/21 04/02/21 04/02/21 04:00 04:00 05:00 WBC 31.0 H RBC 2.93 L Hgb 8.0 L Hct 24.7 L MCH 27 L MCHC RDW 19.2 H Plt Count 131 L Lymph % (Auto) [place] # (Auto) Eos # (Auto) Seg Neutrophils % Lymphocytes % (Manual) Eosinophils % (Manual) Basophils % (Manual) Nucleated RBC % Seg Neutrophils # Seg Neutrophils # Man Lymphocytes # (Manual) Monocytes # (Manual) Eosinophils # (Manual) Basophils # (Manual) Percent Retic PT 16.0 H INR 1.16 H Fibrinogen D-Dimer ABG pH POC ABG pCO2 POC ABG pO2 ABG pO2 ABG HCO3 ABG O2 Saturation ABG Base Excess ABG Hemoglobin ABG Oxyhemoglobin ABG Sodium ABG Potassium ABG Chloride ABG Glucose Oxyhemoglobin Carboxyhemoglobin Sodium 135 L Potassium 5.3 H Chloride 96.1 L Carbon Dioxide 18 L BUN 80 H Creatinine 6.8 H Glucose 174 H POC Glucose Hemoglobin A1c Calcium 7.7 L Phosphorus Magnesium AST 106 H ALT 60 H Alkaline Phosphatase Lactate Dehydrogenase C-Reactive Protein Total Protein 5.9 L Albumin 3.5 L Triglycerides 579 H Arterial Blood Glucose Arterial Blood Ionized Calcium Urine WBC (Auto) U Epithel Cells (Auto) Urine Creatinine Random Vancomycin Coronavirus (PCR) Crossmatch 04/02/21 04/02/21 04/02/21 05:09 08:55 11:06 WBC RBC Hgb Hct MCH MCHC RDW Plt Count Lymph % (Auto) [place] # (Auto) Eos # (Auto) Seg Neutrophils % Lymphocytes % (Manual) Eosinophils % (Manual) Basophils % (Manual) Nucleated RBC % Seg Neutrophils # Seg Neutrophils # Man Lymphocytes # (Manual) Monocytes # (Manual) Eosinophils # (Manual) Basophils # (Manual) Percent Retic PT INR Fibrinogen D-Dimer ABG pH 7.188 L POC ABG pCO2 58.3 H POC ABG pO2 132.8 H ABG pO2 ABG HCO3 ABG O2 Saturation ABG Base Excess ABG Hemoglobin 8.4 L ABG Oxyhemoglobin ABG Sodium ABG Potassium 5.0 H ABG Chloride 97.0 L ABG Glucose 156 H Oxyhemoglobin Carboxyhemoglobin 0.4 L Sodium Potassium Chloride Carbon Dioxide BUN Creatinine Glucose POC Glucose 148 H 167 H Hemoglobin A1c Calcium Phosphorus Magnesium AST ALT Alkaline Phosphatase Lactate Dehydrogenase C-Reactive Protein Total Protein Albumin Triglycerides Arterial Blood Glucose 156 H Arterial Blood Ionized Calcium 4.2 L Urine WBC (Auto) U Epithel Cells (Auto) Urine Creatinine Random Vancomycin Coronavirus (PCR) Crossmatch 04/02/21 04/02/21 04/03/21 17:57 20:40 00:28 WBC RBC Hgb Hct MCH MCHC RDW Plt Count Lymph % (Auto) [place] # (Auto) Eos # (Auto) Seg Neutrophils % Lymphocytes % (Manual) Eosinophils % (Manual) Basophils % (Manual) Nucleated RBC % Seg Neutrophils # Seg Neutrophils # Man Lymphocytes # (Manual) Monocytes # (Manual) Eosinophils # (Manual) Basophils # (Manual) Percent Retic PT INR Fibrinogen D-Dimer ABG pH POC ABG pCO2 POC ABG pO2 ABG pO2 111.9 H ABG HCO3 18.9 L ABG O2 Saturation ABG Base Excess -9.9 L ABG Hemoglobin ABG Oxyhemoglobin ABG Sodium ABG Potassium ABG Chloride ABG Glucose Oxyhemoglobin Carboxyhemoglobin Sodium Potassium Chloride Carbon Dioxide BUN Creatinine Glucose POC Glucose 205 H 217 H Hemoglobin A1c Calcium Phosphorus Magnesium AST ALT Alkaline Phosphatase Lactate Dehydrogenase C-Reactive Protein Total Protein Albumin Triglycerides Arterial Blood Glucose Arterial Blood Ionized Calcium Urine WBC (Auto) U Epithel Cells (Auto) Urine Creatinine Random Vancomycin Coronavirus (PCR) Crossmatch 04/03/21 04/03/21 04/03/21 03:39 04:30 04:30 WBC 31.1 H RBC 2.78 L Hgb 8.0 L Hct 24.0 L MCH MCHC RDW 19.0 H Plt Count Lymph % (Auto) [place] # (Auto) Eos # (Auto) Seg Neutrophils % Lymphocytes % (Manual) Eosinophils % (Manual) 27.0 H Basophils % (Manual) 2.0 H Nucleated RBC % Seg Neutrophils # Seg Neutrophils # Man 13.7 H Lymphocytes # (Manual) 8.4 H Monocytes # (Manual) Eosinophils # (Manual) 8.4 H Basophils # (Manual) 0.6 H Percent Retic PT INR Fibrinogen D-Dimer ABG pH POC ABG pCO2 POC ABG pO2 ABG pO2 ABG HCO3 ABG O2 Saturation ABG Base Excess ABG Hemoglobin ABG Oxyhemoglobin ABG Sodium ABG Potassium ABG Chloride ABG Glucose Oxyhemoglobin Carboxyhemoglobin Sodium 132 L Potassium 5.8 H Chloride 94.5 L Carbon Dioxide 16 L BUN 97 H Creatinine 7.7 H Glucose 230 H POC Glucose 201 H Hemoglobin A1c Calcium 7.6 L Phosphorus Magnesium AST 47 H ALT Alkaline Phosphatase 146 H Lactate Dehydrogenase C-Reactive Protein Total Protein 5.2 L Albumin 3.4 L Triglycerides Arterial Blood Glucose Arterial Blood Ionized Calcium Urine WBC (Auto) U Epithel Cells (Auto) Urine Creatinine Random Vancomycin Coronavirus (PCR) Crossmatch 04/03/21 04/03/21 04/03/21 04:30 08:31 11:29 WBC RBC Hgb Hct MCH MCHC RDW Plt Count Lymph % (Auto) [place] # (Auto) Eos # (Auto) Seg Neutrophils % Lymphocytes % (Manual) Eosinophils % (Manual) Basophils % (Manual) Nucleated RBC % Seg Neutrophils # Seg Neutrophils # Man Lymphocytes # (Manual) Monocytes # (Manual) Eosinophils # (Manual) Basophils # (Manual) Percent Retic PT INR Fibrinogen D-Dimer ABG pH 7.195 L* POC ABG pCO2 POC ABG pO2 ABG pO2 102.6 H ABG HCO3 ABG O2 Saturation ABG Base Excess -7.2 L ABG Hemoglobin 8.0 L ABG Oxyhemoglobin ABG Sodium ABG Potassium ABG Chloride ABG Glucose Oxyhemoglobin 94.7 L Carboxyhemoglobin Sodium Potassium Chloride Carbon Dioxide BUN Creatinine Glucose POC Glucose 230 H Hemoglobin A1c Calcium Phosphorus 10.30 H Magnesium AST ALT Alkaline Phosphatase Lactate Dehydrogenase C-Reactive Protein Total Protein Albumin Triglycerides Arterial Blood Glucose Arterial Blood Ionized Calcium Urine WBC (Auto) U Epithel Cells (Auto) Urine Creatinine Random Vancomycin Coronavirus (PCR) Crossmatch 04/03/21 04/03/21 04/04/21 16:53 20:45 05:00 WBC 28.8 H RBC 2.64 L Hgb 8.7 L Hct 22.2 L MCH 33 H MCHC 39 H* RDW 18.6 H Plt Count Lymph % (Auto) [place] # (Auto) Eos # (Auto) Seg Neutrophils % Lymphocytes % (Manual) Eosinophils % (Manual) Basophils % (Manual) Nucleated RBC % Seg Neutrophils # Seg Neutrophils # Man Lymphocytes # (Manual) Monocytes # (Manual) Eosinophils # (Manual) Basophils # (Manual) Percent Retic PT INR Fibrinogen D-Dimer ABG pH POC ABG pCO2 POC ABG pO2 ABG pO2 ABG HCO3 ABG O2 Saturation ABG Base Excess ABG Hemoglobin ABG Oxyhemoglobin ABG Sodium ABG Potassium ABG Chloride ABG Glucose Oxyhemoglobin 94.8 L Carboxyhemoglobin Sodium Potassium Chloride Carbon Dioxide BUN Creatinine Glucose POC Glucose 227 H Hemoglobin A1c Calcium Phosphorus Magnesium AST ALT Alkaline Phosphatase Lactate Dehydrogenase C-Reactive Protein Total Protein Albumin Triglycerides Arterial Blood Glucose Arterial Blood Ionized Calcium Urine WBC (Auto) U Epithel Cells (Auto) Urine Creatinine Random Vancomycin Coronavirus (PCR) Crossmatch 04/04/21 04/04/21 04/04/21 05:29 07:55 09:20 WBC RBC Hgb Hct MCH MCHC RDW Plt Count Lymph % (Auto) [place] # (Auto) Eos # (Auto) Seg Neutrophils % Lymphocytes % (Manual) Eosinophils % (Manual) Basophils % (Manual) Nucleated RBC % Seg Neutrophils # Seg Neutrophils # Man Lymphocytes # (Manual) Monocytes # (Manual) Eosinophils # (Manual) Basophils # (Manual) Percent Retic PT INR Fibrinogen D-Dimer ABG pH POC ABG pCO2 POC ABG pO2 ABG pO2 ABG HCO3 ABG O2 Saturation ABG Base Excess ABG Hemoglobin ABG Oxyhemoglobin ABG Sodium ABG Potassium ABG Chloride ABG Glucose Oxyhemoglobin Carboxyhemoglobin Sodium 133 L Potassium Chloride 91.0 L Carbon Dioxide 20 L BUN 75 H Creatinine 4.7 H Glucose 184 H POC Glucose 133 H Hemoglobin A1c Calcium 7.3 L Phosphorus Magnesium AST < 5 L ALT < 5 L Alkaline Phosphatase 200 H Lactate Dehydrogenase C-Reactive Protein Total Protein 5.6 L Albumin 2.9 L Triglycerides Arterial Blood Glucose Arterial Blood Ionized Calcium Urine WBC (Auto) U Epithel Cells (Auto) Urine Creatinine Random Vancomycin Coronavirus (PCR) Crossmatch See Detail 04/04/21 04/04/21 04/04/21 12:01 14:06 17:05 WBC RBC Hgb Hct MCH MCHC RDW Plt Count Lymph % (Auto) [place] # (Auto) Eos # (Auto) Seg Neutrophils % Lymphocytes % (Manual) Eosinophils % (Manual) Basophils % (Manual) Nucleated RBC % Seg Neutrophils # Seg Neutrophils # Man Lymphocytes # (Manual) Monocytes # (Manual) Eosinophils # (Manual) Basophils # (Manual) Percent Retic PT INR Fibrinogen D-Dimer ABG pH 7.162 L* POC ABG pCO2 POC ABG pO2 ABG pO2 91.3 H ABG HCO3 ABG O2 Saturation 94.8 L ABG Base Excess -4.0 L ABG Hemoglobin 7.6 L ABG Oxyhemoglobin ABG Sodium ABG Potassium ABG Chloride ABG Glucose Oxyhemoglobin 92.4 L Carboxyhemoglobin Sodium Potassium Chloride Carbon Dioxide BUN Creatinine Glucose POC Glucose 199 H 166 H Hemoglobin A1c Calcium Phosphorus Magnesium AST ALT Alkaline Phosphatase Lactate Dehydrogenase C-Reactive Protein Total Protein Albumin Triglycerides Arterial Blood Glucose Arterial Blood Ionized Calcium Urine WBC (Auto) U Epithel Cells (Auto) Urine Creatinine Random Vancomycin Coronavirus (PCR) Crossmatch 04/04/21 04/04/21 04/05/21 21:14 23:30 05:20 WBC RBC Hgb Hct MCH MCHC RDW Plt Count Lymph % (Auto) [place] # (Auto) Eos # (Auto) Seg Neutrophils % Lymphocytes % (Manual) Eosinophils % (Manual) Basophils % (Manual) Nucleated RBC % Seg Neutrophils # Seg Neutrophils # Man Lymphocytes # (Manual) Monocytes # (Manual) Eosinophils # (Manual) Basophils # (Manual) Percent Retic PT INR Fibrinogen D-Dimer ABG pH 7.257 L POC ABG pCO2 POC ABG pO2 ABG pO2 73.8 L ABG HCO3 ABG O2 Saturation 91.6 L ABG Base Excess -2.7 L ABG Hemoglobin 8.6 L ABG Oxyhemoglobin ABG Sodium ABG Potassium ABG Chloride ABG Glucose Oxyhemoglobin 89.1 L Carboxyhemoglobin Sodium 131 L Potassium Chloride 91.2 L Carbon Dioxide 17 L BUN 85 H Creatinine 5.1 H Glucose 183 H POC Glucose 158 H Hemoglobin A1c Calcium 7.4 L Phosphorus Magnesium AST ALT Alkaline Phosphatase 190 H Lactate Dehydrogenase 394 H C-Reactive Protein Total Protein 5.8 L Albumin 2.7 L Triglycerides Arterial Blood Glucose Arterial Blood Ionized Calcium Urine WBC (Auto) U Epithel Cells (Auto) Urine Creatinine Random Vancomycin Coronavirus (PCR) Crossmatch 04/05/21 04/05/21 04/05/21 05:20 05:20 05:24 WBC 30.8 H RBC 2.83 L Hgb 8.4 L Hct 24.4 L MCH MCHC 35 H RDW 18.9 H Plt Count Lymph % (Auto) [place] # (Auto) Eos # (Auto) Seg Neutrophils % Lymphocytes % (Manual) Eosinophils % (Manual) Basophils % (Manual) Nucleated RBC % Seg Neutrophils # Seg Neutrophils # Man Lymphocytes # (Manual) Monocytes # (Manual) Eosinophils # (Manual) Basophils # (Manual) Percent Retic PT INR Fibrinogen D-Dimer ABG pH POC ABG pCO2 POC ABG pO2 ABG pO2 ABG HCO3 ABG O2 Saturation ABG Base Excess ABG Hemoglobin ABG Oxyhemoglobin ABG Sodium ABG Potassium ABG Chloride ABG Glucose Oxyhemoglobin Carboxyhemoglobin Sodium Potassium Chloride Carbon Dioxide BUN Creatinine Glucose POC Glucose 162 H Hemoglobin A1c Calcium Phosphorus 9.40 H Magnesium AST ALT Alkaline Phosphatase Lactate Dehydrogenase C-Reactive Protein Total Protein Albumin Triglycerides Arterial Blood Glucose Arterial Blood Ionized Calcium Urine WBC (Auto) U Epithel Cells (Auto) Urine Creatinine Random Vancomycin Coronavirus (PCR) Crossmatch 04/05/21 04/05/21 04/05/21 11:31 12:23 21:40 WBC RBC Hgb Hct MCH MCHC RDW Plt Count Lymph % (Auto) [place] # (Auto) Eos # (Auto) Seg Neutrophils % Lymphocytes % (Manual) Eosinophils % (Manual) Basophils % (Manual) Nucleated RBC % Seg Neutrophils # Seg Neutrophils # Man Lymphocytes # (Manual) Monocytes # (Manual) Eosinophils # (Manual) Basophils # (Manual) Percent Retic PT INR Fibrinogen D-Dimer ABG pH 7.325 L POC ABG pCO2 POC ABG pO2 ABG pO2 65.6 L ABG HCO3 ABG O2 Saturation 91.2 L ABG Base Excess ABG Hemoglobin 6.7 L ABG Oxyhemoglobin ABG Sodium ABG Potassium ABG Chloride ABG Glucose Oxyhemoglobin 89.0 L Carboxyhemoglobin Sodium Potassium Chloride Carbon Dioxide BUN Creatinine Glucose POC Glucose 196 H 190 H Hemoglobin A1c Calcium Phosphorus Magnesium AST ALT Alkaline Phosphatase Lactate Dehydrogenase C-Reactive Protein Total Protein Albumin Triglycerides Arterial Blood Glucose Arterial Blood Ionized Calcium Urine WBC (Auto) U Epithel Cells (Auto) Urine Creatinine Random Vancomycin Coronavirus (PCR) Crossmatch 04/05/21 04/06/21 04/06/21 23:53 05:35 06:00 WBC RBC Hgb Hct MCH MCHC RDW Plt Count Lymph % (Auto) [place] # (Auto) Eos # (Auto) Seg Neutrophils % Lymphocytes % (Manual) Eosinophils % (Manual) Basophils % (Manual) Nucleated RBC % Seg Neutrophils # Seg Neutrophils # Man Lymphocytes # (Manual) Monocytes # (Manual) Eosinophils # (Manual) Basophils # (Manual) Percent Retic PT INR Fibrinogen D-Dimer ABG pH POC ABG pCO2 POC ABG pO2 ABG pO2 ABG HCO3 ABG O2 Saturation ABG Base Excess ABG Hemoglobin ABG Oxyhemoglobin ABG Sodium ABG Potassium ABG Chloride ABG Glucose Oxyhemoglobin Carboxyhemoglobin Sodium 132 L Potassium Chloride 90.7 L Carbon Dioxide 21 L BUN 74 H Creatinine 4.3 H Glucose 156 H POC Glucose 192 H 139 H Hemoglobin A1c Calcium 7.9 L Phosphorus 6.90 H D Magnesium AST < 5 L ALT < 5 L Alkaline Phosphatase 185 H Lactate Dehydrogenase C-Reactive Protein Total Protein 5.7 L Albumin 2.5 L Triglycerides Arterial Blood Glucose Arterial Blood Ionized Calcium Urine WBC (Auto) U Epithel Cells (Auto) Urine Creatinine Random Vancomycin Coronavirus (PCR) Crossmatch 04/06/21 04/06/21 04/06/21 06:00 11:27 18:01 WBC 26.7 H RBC 2.39 L Hgb 6.9 L Hct 20.1 L MCH MCHC RDW 18.7 H Plt Count Lymph % (Auto) [place] # (Auto) Eos # (Auto) Seg Neutrophils % Lymphocytes % (Manual) Eosinophils % (Manual) Basophils % (Manual) Nucleated RBC % Seg Neutrophils # Seg Neutrophils # Man Lymphocytes # (Manual) Monocytes # (Manual) Eosinophils # (Manual) Basophils # (Manual) Percent Retic PT INR Fibrinogen D-Dimer ABG pH POC ABG pCO2 POC ABG pO2 ABG pO2 ABG HCO3 ABG O2 Saturation ABG Base Excess ABG Hemoglobin ABG Oxyhemoglobin ABG Sodium ABG Potassium ABG Chloride ABG Glucose Oxyhemoglobin Carboxyhemoglobin Sodium Potassium Chloride Carbon Dioxide BUN Creatinine Glucose POC Glucose 166 H 159 H Hemoglobin A1c Calcium Phosphorus Magnesium AST ALT Alkaline Phosphatase Lactate Dehydrogenase C-Reactive Protein Total Protein Albumin Triglycerides Arterial Blood Glucose Arterial Blood Ionized Calcium Urine WBC (Auto) U Epithel Cells (Auto) Urine Creatinine Random Vancomycin Coronavirus (PCR) Crossmatch 04/06/21 04/06/21 04/06/21 20:50 23:43 Unknown WBC RBC Hgb Hct MCH MCHC RDW Plt Count Lymph % (Auto) [place] # (Auto) Eos # (Auto) Seg Neutrophils % Lymphocytes % (Manual) Eosinophils % (Manual) Basophils % (Manual) Nucleated RBC % Seg Neutrophils # Seg Neutrophils # Man Lymphocytes # (Manual) Monocytes # (Manual) Eosinophils # (Manual) Basophils # (Manual) Percent Retic PT INR Fibrinogen D-Dimer ABG pH 7.303 L POC ABG pCO2 POC ABG pO2 67.9 L ABG pO2 ABG HCO3 ABG O2 Saturation ABG Base Excess ABG Hemoglobin 7.6 L ABG Oxyhemoglobin 90.2 L ABG Sodium 128.6 L ABG Potassium ABG Chloride 97.0 L ABG Glucose 154 H Oxyhemoglobin Carboxyhemoglobin Sodium Potassium Chloride Carbon Dioxide BUN Creatinine Glucose POC Glucose 137 H Hemoglobin A1c Calcium Phosphorus Magnesium AST ALT Alkaline Phosphatase Lactate Dehydrogenase C-Reactive Protein Total Protein Albumin Triglycerides Arterial Blood Glucose 154 H Arterial Blood Ionized Calcium Urine WBC (Auto) 148.0 H U Epithel Cells (Auto) 102.0 H Urine Creatinine Random Vancomycin Coronavirus (PCR) Crossmatch 04/07/21 04/07/21 04/07/21 03:50 03:50 03:50 WBC 26.7 H RBC 2.66 L Hgb 7.6 L Hct 23.2 L MCH MCHC RDW 18.5 H Plt Count Lymph % (Auto) [place] # (Auto) Eos # (Auto) Seg Neutrophils % Lymphocytes % (Manual) 10.0 L Eosinophils % (Manual) 19.0 H Basophils % (Manual) Nucleated RBC % 2.0 H Seg Neutrophils # Seg Neutrophils # Man 17.9 H Lymphocytes # (Manual) Monocytes # (Manual) 1.1 H Eosinophils # (Manual) 5.1 H Basophils # (Manual) Percent Retic PT INR Fibrinogen D-Dimer 2178 H ABG pH POC ABG pCO2 POC ABG pO2 ABG pO2 ABG HCO3 ABG O2 Saturation ABG Base Excess ABG Hemoglobin ABG Oxyhemoglobin ABG Sodium ABG Potassium ABG Chloride ABG Glucose Oxyhemoglobin Carboxyhemoglobin Sodium 130 L Potassium Chloride 91.1 L Carbon Dioxide 19 L BUN 92 H Creatinine 4.2 H Glucose 213 H POC Glucose Hemoglobin A1c Calcium 7.8 L Phosphorus Magnesium AST ALT Alkaline Phosphatase Lactate Dehydrogenase C-Reactive Protein Total Protein Albumin Triglycerides Arterial Blood Glucose Arterial Blood Ionized Calcium Urine WBC (Auto) U Epithel Cells (Auto) Urine Creatinine Random Vancomycin Coronavirus (PCR) Crossmatch 04/07/21 04/07/21 04/07/21 04:00 05:42 11:10 WBC RBC Hgb Hct MCH MCHC RDW Plt Count Lymph % (Auto) [place] # (Auto) Eos # (Auto) Seg Neutrophils % Lymphocytes % (Manual) Eosinophils % (Manual) Basophils % (Manual) Nucleated RBC % Seg Neutrophils # Seg Neutrophils # Man Lymphocytes # (Manual) Monocytes # (Manual) Eosinophils # (Manual) Basophils # (Manual) Percent Retic PT INR Fibrinogen D-Dimer ABG pH POC ABG pCO2 POC ABG pO2 ABG pO2 ABG HCO3 ABG O2 Saturation ABG Base Excess ABG Hemoglobin ABG Oxyhemoglobin ABG Sodium ABG Potassium ABG Chloride ABG Glucose Oxyhemoglobin Carboxyhemoglobin Sodium 129 L Potassium 5.1 H Chloride 89.6 L Carbon Dioxide 18 L BUN 94 H Creatinine 4.2 H Glucose 213 H POC Glucose 177 H 136 H Hemoglobin A1c Calcium 7.9 L Phosphorus Magnesium AST ALT Alkaline Phosphatase 167 H Lactate Dehydrogenase C-Reactive Protein Total Protein Albumin 2.8 L Triglycerides Arterial Blood Glucose Arterial Blood Ionized Calcium Urine WBC (Auto) U Epithel Cells (Auto) Urine Creatinine Random Vancomycin Coronavirus (PCR) Crossmatch 04/07/21 04/07/21 04/08/21 16:19 21:30 02:32 WBC RBC Hgb Hct MCH MCHC RDW Plt Count Lymph % (Auto) [place] # (Auto) Eos # (Auto) Seg Neutrophils % Lymphocytes % (Manual) Eosinophils % (Manual) Basophils % (Manual) Nucleated RBC % Seg Neutrophils # Seg Neutrophils # Man Lymphocytes # (Manual) Monocytes # (Manual) Eosinophils # (Manual) Basophils # (Manual) Percent Retic PT INR Fibrinogen D-Dimer ABG pH 7.209 L POC ABG pCO2 64.8 H POC ABG pO2 ABG pO2 ABG HCO3 ABG O2 Saturation ABG Base Excess ABG Hemoglobin 7.9 L ABG Oxyhemoglobin 93.8 L ABG Sodium 128.8 L ABG Potassium 4.6 H ABG Chloride 97.0 L ABG Glucose 170 H Oxyhemoglobin Carboxyhemoglobin 1.6 H Sodium Potassium Chloride Carbon Dioxide BUN Creatinine Glucose POC Glucose 155 H 141 H Hemoglobin A1c Calcium Phosphorus Magnesium AST ALT Alkaline Phosphatase Lactate Dehydrogenase C-Reactive Protein Total Protein Albumin Triglycerides Arterial Blood Glucose 170 H Arterial Blood Ionized Calcium 4.2 L Urine WBC (Auto) U Epithel Cells (Auto) Urine Creatinine Random Vancomycin Coronavirus (PCR) Crossmatch 04/08/21 04/08/21 04/08/21 04:00 04:40 04:40 WBC 23.7 H RBC 2.51 L Hgb 6.9 L Hct 22.1 L MCH 27 L MCHC RDW 18.4 H Plt Count Lymph % (Auto) [place] # (Auto) Eos # (Auto) Seg Neutrophils % Lymphocytes % (Manual) Eosinophils % (Manual) Basophils % (Manual) Nucleated RBC % Seg Neutrophils # Seg Neutrophils # Man Lymphocytes # (Manual) Monocytes # (Manual) Eosinophils # (Manual) Basophils # (Manual) Percent Retic PT INR Fibrinogen D-Dimer 2696.79 H ABG pH POC ABG pCO2 POC ABG pO2 ABG pO2 ABG HCO3 ABG O2 Saturation ABG Base Excess ABG Hemoglobin ABG Oxyhemoglobin ABG Sodium ABG Potassium ABG Chloride ABG Glucose Oxyhemoglobin Carboxyhemoglobin Sodium 133 L Potassium 5.5 H Chloride 93.5 L Carbon Dioxide BUN 78 H Creatinine 3.5 H Glucose 171 H POC Glucose Hemoglobin A1c Calcium 8.1 L Phosphorus 9.30 H Magnesium AST ALT Alkaline Phosphatase Lactate Dehydrogenase C-Reactive Protein 26.10 H Total Protein Albumin Triglycerides 487 H Arterial Blood Glucose Arterial Blood Ionized Calcium Urine WBC (Auto) U Epithel Cells (Auto) Urine Creatinine Random Vancomycin Coronavirus (PCR) Crossmatch 04/08/21 04/08/21 04/08/21 09:55 11:37 13:55 WBC RBC Hgb Hct MCH MCHC RDW Plt Count Lymph % (Auto) [place] # (Auto) Eos # (Auto) Seg Neutrophils % Lymphocytes % (Manual) Eosinophils % (Manual) Basophils % (Manual) Nucleated RBC % Seg Neutrophils # Seg Neutrophils # Man Lymphocytes # (Manual) Monocytes # (Manual) Eosinophils # (Manual) Basophils # (Manual) Percent Retic PT INR Fibrinogen D-Dimer ABG pH 7.114 L* POC ABG pCO2 POC ABG pO2 ABG pO2 75.9 L ABG HCO3 26.2 H ABG O2 Saturation 90.6 L ABG Base Excess -3.6 L ABG Hemoglobin 8.2 L ABG Oxyhemoglobin ABG Sodium ABG Potassium ABG Chloride ABG Glucose Oxyhemoglobin 88.0 L Carboxyhemoglobin Sodium Potassium Chloride Carbon Dioxide BUN Creatinine Glucose POC Glucose 156 H Hemoglobin A1c Calcium Phosphorus Magnesium AST ALT Alkaline Phosphatase Lactate Dehydrogenase C-Reactive Protein Total Protein Albumin Triglycerides Arterial Blood Glucose Arterial Blood Ionized Calcium Urine WBC (Auto) U Epithel Cells (Auto) Urine Creatinine Random Vancomycin Coronavirus (PCR) Crossmatch See Detail 04/08/21 04/08/21 04/08/21 17:04 20:53 23:56 WBC RBC Hgb Hct MCH MCHC RDW Plt Count Lymph % (Auto) [place] # (Auto) Eos # (Auto) Seg Neutrophils % Lymphocytes % (Manual) Eosinophils % (Manual) Basophils % (Manual) Nucleated RBC % Seg Neutrophils # Seg Neutrophils # Man Lymphocytes # (Manual) Monocytes # (Manual) Eosinophils # (Manual) Basophils # (Manual) Percent Retic PT INR Fibrinogen D-Dimer ABG pH 7.207 L POC ABG pCO2 49.8 H POC ABG pO2 ABG pO2 ABG HCO3 ABG O2 Saturation ABG Base Excess ABG Hemoglobin 7.6 L ABG Oxyhemoglobin ABG Sodium 127.3 L ABG Potassium 5.7 H ABG Chloride 96.0 L ABG Glucose 185 H Oxyhemoglobin Carboxyhemoglobin Sodium Potassium Chloride Carbon Dioxide BUN Creatinine Glucose POC Glucose 178 H 189 H Hemoglobin A1c Calcium Phosphorus Magnesium AST ALT Alkaline Phosphatase Lactate Dehydrogenase C-Reactive Protein Total Protein Albumin Triglycerides Arterial Blood Glucose 185 H Arterial Blood Ionized Calcium 4.3 L Urine WBC (Auto) U Epithel Cells (Auto) Urine Creatinine Random Vancomycin Coronavirus (PCR) Crossmatch 04/09/21 04/09/21 04/09/21 04:00 04:00 05:24 WBC 21.9 H RBC 2.70 L Hgb 7.8 L Hct 24.1 L MCH MCHC RDW 18.3 H Plt Count Lymph % (Auto) [place] # (Auto) Eos # (Auto) Seg Neutrophils % Lymphocytes % (Manual) Eosinophils % (Manual) Basophils % (Manual) Nucleated RBC % Seg Neutrophils # Seg Neutrophils # Man Lymphocytes # (Manual) Monocytes # (Manual) Eosinophils # (Manual) Basophils # (Manual) Percent Retic PT INR Fibrinogen D-Dimer ABG pH POC ABG pCO2 POC ABG pO2 ABG pO2 ABG HCO3 ABG O2 Saturation ABG Base Excess ABG Hemoglobin ABG Oxyhemoglobin ABG Sodium ABG Potassium ABG Chloride ABG Glucose Oxyhemoglobin Carboxyhemoglobin Sodium 131 L Potassium 6.3 H* Chloride 93.0 L Carbon Dioxide 19 L BUN 98 H Creatinine 4.6 H Glucose 208 H POC Glucose 191 H Hemoglobin A1c Calcium 8.1 L Phosphorus Magnesium AST ALT Alkaline Phosphatase Lactate Dehydrogenase C-Reactive Protein Total Protein Albumin Triglycerides Arterial Blood Glucose Arterial Blood Ionized Calcium Urine WBC (Auto) U Epithel Cells (Auto) Urine Creatinine Random Vancomycin Coronavirus (PCR) Crossmatch Chest x-ray: image reviewed (Bilateral alveoalr infiltrates with effusions) Allied health notes reviewed: RT
--- NOTE | 2021-04-09 09:58 | Progress Note ---
Assessment and Plan Impression/Plan: #Acute kidney injury: dialysis dependent - s/p HD on 04/07, minimal uf due to low bp, HR of 1L, did tolerate - HD/UF today, will attempt more fluid removal as tolerated, may benefit from daily dialysis if tolerated - daily lytes - Assess daily for needs for additional sessions pending hemodynamic stability - Strict input and output - Avoid nephrotoxins - Renally dose medications - Keep MAP > 65 #Hyperkalemia: K 6.3 today, HD today #Respiratory failure Covid 19 infection currently intubated UF as tolerated with HD, limited by hemodynamic instability #Hyperphosphatemia to be monitored Dialysis has been initiated #Hyponatremia: stable #Anemia--Hematology plans noted, plasma exchange noted #Overall prognosis remains poor, palliative care appropriate Subjective Date of service: 04/09/21 Principal diagnosis: Ac hypoxemic resp failure; AE-Asthma; SAI; Crohn's; COVID- 19; Pneumonia Interval history: Remains intubated, FiO2 60%, on 3 pressors. HR in 110s this AM. Objective - Exam Narrative Exam: General appearance: Intubated and sedated, obese Head: NC/AT Neck: Absent: masses or JVD, cervical LAD Respiratory: coarse mechanical sounds Heart: Present: S1 & S2, mildly tachycardic Extremities: pulses intact, pulses symmetrical; 3+ edema Peripheral Pulses: within normal limits General gastrointestinal: soft, non-tender Integumentary: dry Neurologic: sedated - Vital Signs Vital signs: Vital Signs - 12hr 04/08/21 04/08/21 04/08/21 22:00 22:16 22:30 Temperature Pulse Rate 124 H 131 H 125 H Pulse Rate [ From Monitor] Pulse Rate [ Throughout] Respiratory 30 H 34 H 31 H Rate Respiratory Rate [ Throughout] Blood Pressure O2 Sat by Pulse 96 93 98 Oximetry 04/08/21 04/08/21 04/08/21 22:46 22:58 23:00 Temperature Pulse Rate 125 H 127 H 128 H Pulse Rate [ From Monitor] Pulse Rate [ Throughout] Respiratory 30 H 31 H 30 H Rate Respiratory Rate [ Throughout] Blood Pressure O2 Sat by Pulse 97 95 94 Oximetry 04/08/21 04/08/21 04/08/21 23:08 23:16 23:30 Temperature Pulse Rate 130 H 133 H 129 H Pulse Rate [ From Monitor] Pulse Rate [ Throughout] Respiratory 28 H 32 H 33 H Rate Respiratory Rate [ Throughout] Blood Pressure O2 Sat by Pulse 92 95 95 Oximetry 04/08/21 04/08/21 04/08/21 23:31 23:46 23:48 Temperature Pulse Rate 130 H 128 H 134 H Pulse Rate [ From Monitor] Pulse Rate [ Throughout] Respiratory 33 H Rate Respiratory Rate [ Throughout] Blood Pressure 109/65 O2 Sat by Pulse 91 94 Oximetry 04/09/21 04/09/21 04/09/21 00:00 00:16 00:30 Temperature 101.8 F H Pulse Rate 124 H 125 H 126 H Pulse Rate [ 121 H From Monitor] Pulse Rate [ Throughout] Respiratory 32 H 32 H 31 H Rate Respiratory Rate [ Throughout] Blood Pressure O2 Sat by Pulse 99 94 92 Oximetry 04/09/21 04/09/21 04/09/21 00:46 01:00 01:16 Temperature Pulse Rate 126 H 124 H 124 H Pulse Rate [ From Monitor] Pulse Rate [ Throughout] Respiratory 29 H 30 H 27 H Rate Respiratory Rate [ Throughout] Blood Pressure O2 Sat by Pulse 92 96 95 Oximetry 04/09/21 04/09/21 04/09/21 01:30 01:46 02:00 Temperature Pulse Rate 124 H 121 H 122 H Pulse Rate [ From Monitor] Pulse Rate [ Throughout] Respiratory 30 H 30 H 27 H Rate Respiratory Rate [ Throughout] Blood Pressure O2 Sat by Pulse 95 97 96 Oximetry 04/09/21 04/09/21 04/09/21 02:16 02:30 02:46 Temperature Pulse Rate 122 H 127 H 130 H Pulse Rate [ From Monitor] Pulse Rate [ Throughout] Respiratory 28 H 29 H 30 H Rate Respiratory Rate [ Throughout] Blood Pressure O2 Sat by Pulse 96 94 89 Oximetry 04/09/21 04/09/21 04/09/21 02:48 03:00 03:16 Temperature Pulse Rate 127 H 128 H Pulse Rate [ From Monitor] Pulse Rate [ 16 L Throughout] Respiratory 28 H 27 H Rate Respiratory 30 H Rate [ Throughout] Blood Pressure O2 Sat by Pulse 93 90 Oximetry 04/09/21 04/09/21 04/09/21 03:30 03:46 03:57 Temperature 101.5 F H Pulse Rate 122 H 125 H Pulse Rate [ From Monitor] Pulse Rate [ Throughout] Respiratory 26 H 29 H Rate Respiratory Rate [ Throughout] Blood Pressure O2 Sat by Pulse 95 91 Oximetry 04/09/21 04/09/21 04/09/21 04:00 04:16 04:30 Temperature Pulse Rate 126 H 121 H 120 H Pulse Rate [ 121 H From Monitor] Pulse Rate [ Throughout] Respiratory 30 H 31 H 28 H Rate Respiratory Rate [ Throughout] Blood Pressure O2 Sat by Pulse 99 96 96 Oximetry 04/09/21 04/09/21 04/09/21 04:46 04:49 05:00 Temperature Pulse Rate 120 H 120 H 120 H Pulse Rate [ From Monitor] Pulse Rate [ Throughout] Respiratory 25 H 24 Rate Respiratory Rate [ Throughout] Blood Pressure 117/63 O2 Sat by Pulse 97 98 97 Oximetry 04/09/21 04/09/21 04/09/21 05:16 05:30 05:46 Temperature Pulse Rate 120 H 121 H 122 H Pulse Rate [ From Monitor] Pulse Rate [ Throughout] Respiratory 24 22 21 Rate Respiratory Rate [ Throughout] Blood Pressure O2 Sat by Pulse 97 97 96 Oximetry 04/09/21 04/09/21 04/09/21 06:00 06:16 06:30 Temperature Pulse Rate 121 H 124 H 122 H Pulse Rate [ From Monitor] Pulse Rate [ Throughout] Respiratory 20 23 19 Rate Respiratory Rate [ Throughout] Blood Pressure O2 Sat by Pulse 96 97 97 Oximetry 04/09/21 04/09/21 04/09/21 06:46 07:00 07:16 Temperature Pulse Rate 122 H 121 H 121 H Pulse Rate [ From Monitor] Pulse Rate [ Throughout] Respiratory 18 18 16 Rate Respiratory Rate [ Throughout] Blood Pressure O2 Sat by Pulse 97 97 97 Oximetry 04/09/21 04/09/21 04/09/21 07:30 07:46 07:57 Temperature Pulse Rate 121 H 118 H 120 H Pulse Rate [ From Monitor] Pulse Rate [ Throughout] Respiratory 18 16 Rate Respiratory Rate [ Throughout] Blood Pressure O2 Sat by Pulse 96 96 Oximetry 04/09/21 04/09/21 04/09/21 08:00 08:16 08:28 Temperature Pulse Rate 119 H 120 H 121 H Pulse Rate [ 119 H From Monitor] Pulse Rate [ Throughout] Respiratory 18 17 Rate Respiratory Rate [ Throughout] Blood Pressure 117/67 O2 Sat by Pulse 95 95 95 Oximetry 04/09/21 04/09/21 08:29 08:30 Temperature Pulse Rate 123 H Pulse Rate [ From Monitor] Pulse Rate [ 121 H Throughout] Respiratory 17 Rate Respiratory 33 H Rate [ Throughout] Blood Pressure O2 Sat by Pulse 95 Oximetry - Lab 04/09/21 04:00 04/09/21 04:00 Most recent lab results ABG pH 7.207 (7.320-7.450) L 04/08/21 20:53 ABG pCO2 83.8 mm Hg 04/08/21 09:55 ABG pO2 75.9 mm Hg (80.0-90.0) L 04/08/21 09:55 ABG HCO3 26.2 mmol/L (20.0-26.0) H 04/08/21 09:55 ABG O2 Saturation 95.9 (0-100) 04/08/21 20:53 Calcium 8.1 mg/dL (8.4-10.2) L 04/09/21 04:00 Phosphorus 9.30 mg/dL (2.5-4.5) H 04/08/21 04:00 Magnesium 2.00 mg/dL (1.7-2.3) 04/08/21 04:00 Urine Creatinine 40.1 mg/dL (0.1-20.0) H 03/14/21 17:50 Urine Sodium 124 mmol/L 03/14/21 17:50 Medications & Allergies - Medications Allergies/Adverse Reactions: Allergies oxycodone HCl [From Percocet] Allergy (Severe, Verified 03/30/21 14:01) Swelling cefepime Allergy (Verified 04/06/21 13:38) Rash hydrocodone bitartrate [From Vicodin] Allergy (Verified 03/31/21 08:20) Swelling ALLERGY TO TYLENOL VS OXYCODONE ACTIVE ORDER REMOVED FROM [facility] SINCE UNABLE TO CONFIRM WITH FAMILY Home Medications: Home Medications Medication Instructions Recorded Confirmed Last Taken Type Chlorhexidine Mouthwash [Peridex] 15 ml MM BID #1 bottle 10/11/20 03/13/21 Unknown Rx Clindamycin [Clindamycin CAP] 300 mg PO Q8H #21 cap 10/11/20 03/13/21 Unknown Rx Naproxen 500 mg PO Q12H PRN #12 tablet 10/11/20 03/13/21 Unknown Rx Butalb/Acetamin/Caff 50-325-40 1 - 2 tab PO Q6HR PRN #15 tab 12/05/20 03/13/21 Unknown Rx [Fioricet 50-325-40] Famotidine [Pepcid] 20 mg PO BID #30 tablet 12/05/20 03/13/21 Unknown Rx Ketorolac [Toradol] 10 mg PO Q8H PRN #20 tablet 12/05/20 03/13/21 Unknown Rx Ondansetron [Zofran Odt] 4 mg PO Q6HR PRN #20 tab.rapdis 12/05/20 03/13/21 Unknown Rx Albuterol Sulfate [Proair 90 mcg IH Q4HR PRN #2 [email or web address] 01/01/21 03/13/21 Unk nown Rx Respiclick] Mupirocin [Bactroban 2% OINT] 1 applic TP BID 7 Days #1 tube 01/01/21 03/13/21 Unknown Rx Triamcinolone Aceton 0.1% (Nf) 1 applic TP BID 14 Days #1 tube 01/01/21 03/13/21 Unknown Rx [Kenalog (NF)] predniSONE [Deltasone] 40 mg PO QDAY #8 tab 01/01/21 03/13/21 Unknown Rx Active Medications: Generic Name Dose Route Start Last Admin Trade Name Freq PRN Reason Stop Dose Admin Acetaminophen 650 mg 03/31/21 12:41 04/08/21 23:15 Acetaminophen 325 Mg/10.15 Ml Oral Liqd Unit Dose FEEDTUBE 650 mg Q6H PRN Administration TEMP >/=100.4 Albumin Human 25 gm 04/01/21 08:19 04/01/21 16:23 Albumin Human 25% (25 Gm/100 Ml) Inj IV 25 gm KARLOS PRN Administration Hypotension Albuterol 2.5 mg 03/19/21 00:53 Albuterol 2.5 Mg/3 Ml Nebu IH Q4HRT PRN Shortness Of Breath Albuterol/Ipratropium 1 ampul 03/19/21 08:00 04/09/21 08:29 Ipratropium/Albuterol Sulfate 3 Ml Ampul.Neb IH 1 ampul Q6HRT INESSA Administration Lipase/Protease/Amylase 1 each 03/15/21 11:42 Lipase 10,500/Protease 25,000/Amylase 43,750 (Units) Dr White FEEDTUBE PRN PRN For Clogged Feeding Tube Apixaban 2.5 mg 03/29/21 13:00 04/09/21 09:31 Apixaban 2.5 Mg Tab PO 2.5 mg Q12HR INESSA Administration Protocol Ascorbic Acid 500 mg 03/14/21 22:00 04/09/21 09:31 Ascorbic Acid 500 Mg Tab PO 500 mg BID INESSA Administration Calcium Acetate 1,334 mg 04/03/21 20:00 04/09/21 08:07 Calcium Acetate 667 Mg Cap FEEDTUBE 1,334 mg TID INESSA Administration Dextrose 50 ml 03/14/21 11:02 03/15/21 11:40 Dextrose 50% In Water (25gm) 50 Ml Syringe IV 50 ml Q30MIN PRN Administration Hypoglycemia Protocol Famotidine 10 mg 03/17/21 22:00 04/09/21 09:31 Famotidine 10 Mg Tab PO 10 mg BID INESSA Administration Fentanyl 50 mcg 03/15/21 10:43 04/05/21 21:32 Fentanyl 100 Mcg/2 Ml Inj IV 50 mcg Q10MIN PRN Administration ANALGESIA Hydromorphone HCl 1 mg 04/06/21 11:32 04/06/21 17:01 Hydromorphone 1 Mg/1 Ml Inj IV 04/13/21 11:31 1 mg Q4H PRN Administration Pain , Severe (7-10) Hydrophilic Ointment 1 applic 03/14/21 17:50 Lip Therapy Vaseline TP Q2HR PRN Dry Lips Fentanyl Citrate 2,000 mcg in 100 mls @ 6.872 mls/hr 03/15/21 11:00 04/09/21 08:51 Fentanyl Drip Premix IV 4 mcg/kg/hr TITR INESSA 27.488 mls/hr Administration Protocol 1 MCG/KG/HR Sodium Chloride 500 mls @ 1 mls/hr 03/16/21 17:19 Nacl 0.9% 500 Ml IV DIRECT PRN ARTERIAL LINE FLUSH NORepinephrine/NS 8 MG-250 ML 8 mg in 250 mls @ 3.75 mls/hr 03/23/21 11:00 04/09/21 09:39 Norepinephrine/Ns 8 Mg-250 Ml (Double Conc) IV 22 mcg/min TITRATE INESSA 41.25 mls/hr Administration Protocol 2 MCG/MIN Midazolam HCl 100 mg/ Sodium 100 mls @ 1 mls/hr 03/30/21 15:00 04/08/21 23:34 Chloride IV 6 mg/hr TITR INESSA 6 mls/hr Titration Protocol 1 MG/HR Vasopressin 20 unit/ Sodium 101 mls @ 9.09 mls/hr 03/30/21 20:00 04/09/21 04:14 Chloride IV 0.03 units/min TITR INESSA 9.09 mls/hr Administration 0.03 UNITS/MIN Phenylephrine HCl 100 mg/ 100 mls @ 3 mls/hr 03/31/21 04:00 04/06/21 07:58 Sodium Chloride IV 0 mcg/min TITR INESSA 0 mls/hr Titration Protocol 50 MCG/MIN Sodium Chloride 100 mls @ 999 mls/hr 04/01/21 08:19 Nacl 0.9% IV KARLOS PRN Hypotension Sodium Bicarbonate 150 meq/ 1,150 mls @ 75 mls/hr 04/02/21 22:00 04/07/21 16:21 Dextrose IV Infused DIRECT INESSA Infusion Levofloxacin/Dextrose 750 mg in 150 mls @ 100 mls/hr 04/06/21 14:30 04/08/21 14:19 Levaquin 750mg/150ml IV 100 mls/hr Q48H INESSA Administration Protocol Propofol 1,000 mg in 100 mls @ 4.26 mls/hr 04/07/21 13:00 04/09/21 05:14 Diprivan 10 Mg/Ml IV 10 mcg/kg/min TITR INESSA 8.52 mls/hr Administration Protocol 5 MCG/KG/MIN Meropenem 500 mg in 50 mls @ 50 mls/hr 04/08/21 11:00 04/08/21 22:29 Merrem/Ns 500 Mg/50 Ml IV 50 mls/hr Q12H INESSA Administration Insulin Human Lispro 0 unit 03/14/21 12:00 04/09/21 06:11 Insulin Lispro 100 Unit/Ml SUB-Q 2 unit Q6HR INESSA Administration Protocol Lorazepam 1 mg 03/13/21 19:40 03/30/21 19:58 Lorazepam 2 Mg/Ml Vial IV 1 mg Q4H PRN Administration Anxiety Methylprednisolone Sodium Succinate 40 mg 04/05/21 14:00 04/09/21 06:11 Methylprednisolone Sod Succinate 125 Mg/2 Ml Inj IV 40 mg Q8HR INESSA Administration Multi-Ingred Cream/Lotion/Oil/Oint 1 applic 03/14/21 17:50 04/02/21 14:31 Mineral Oil/Petrolatum, White Ophth Oint 3.5 Gm OU 1 applic Q4HR PRN Administration Dry Eye(s) Ondansetron HCl 4 mg 03/13/21 19:30 03/21/21 12:05 Ondansetron 4 Mg/2 Ml Inj IV 4 mg Q8H PRN Administration Nausea And Vomiting Quetiapine Fumarate 300 mg 04/06/21 22:00 04/09/21 09:31 Quetiapine 100 Mg Tab PO 300 mg BID INESSA Administration Senna/Docusate Sodium 1 tab 03/14/21 22:00 04/09/21 09:31 Sennosides/Docusate Sodium 8.6/50 Mg Tab FEEDTUBE 1 tab BID INESSA Administration Simple Syrup 15 ml 03/15/21 11:42 Simple Syrup 15 Ml FEEDTUBE PRN PRN Hypoglycemia Simple Syrup 30 ml 03/15/21 11:42 Simple Syrup 15 Ml FEEDTUBE PRN PRN Hypoglycemia Sodium Bicarbonate 325 mg 03/15/21 11:42 03/21/21 17:21 Sodium Bicarbonate 325 Mg Tab FEEDTUBE 325 mg PRN PRN Administration For Clogged Feeding Tube Sodium Chloride 10 ml 03/13/21 22:00 04/09/21 09:30 Sodium Chloride 0.9% 10 Ml Flush Syringe IV 10 ml BID INESSA Administration Sodium Chloride 10 ml 03/13/21 19:30 Sodium Chloride 0.9% 10 Ml Flush Syringe IV PRN PRN LINE FLUSH Zinc Sulfate 220 mg 03/14/21 22:00 04/09/21 09:31 Zinc Sulfate 220 Mg Cap PO 220 mg BID INESSA Administration
[2021-04-09] MEDS: MEROPENEM/NS 500 MG/50 ML 500 MG/50 ML BAG IV SCH ×4 (11:08→23:59)
--- NOTE | 2021-04-09 12:10 | Progress Note ---
<ANCELMO GONZALEZ - Last Filed: 04/09/21 16:17> Assessment and Plan Assessment and plan: This is a 31-year-old female with asthma, morbid obesity and Crohn's disease admitted for Acute hypxemic respiratory failure 2/2 COVID PNA requiring ventilatory support and acute renal failure now on HD. Hospital Course to Date: 03/14/21- Patient is s/p intubation from this morning, sedated on propofol and fentanyl RASS -3 to -4. ETT above the clavicles advanced by 2cc. Continue nebs and IV steroids per [facility]. COVID swab pending. Hyperkalemia improved, X1 dose of kayaxalate ordered. Low BP and low urine output this am, fluid bolus challenge, 500cc of NS bolus given. Continue to monitor electrolytes and renal function, repeat BMP this afternoon. 03/15: Patient's renal function noted to be significantly worse today, patient was hyperkalemic and this was medically treated. Patient initiated on hemodi alysis today. infectious disease was consulted today. 03/16: No acute events reported overnight, patient received hemodialysis yesterday. Patient is currently on propofol and fentanyl. 03/17: Patient received hemodialysis today, patient is slightly acidotic on ABG however [facility] is allowing for permissive hypercapnia, tracheal aspirate with Staph aureus and ID is aware. 03/18: Patient is having high residuals today and Reglan was started, patient will receive HD daily per nephrology, correct her change in FiO2 as tolerated. 03/19: HD per nephrology today, antibiotics changed to cefazolin. Patient did not tolerate tube feedings as she had high residuals this morning and they were turned off. Not restarted yet. Updated family at bedside today 03/20: HD today, ddimer noted to be >1000, Tolerating trickle TF. Stat BLE dopplar US 03/21: Patient is not tolerating TF, CXR shows worsening infiltrates, [facility] made changes to vent, TF on hold and started on IVF. 03/22/21- Patient remains intubated and on sedation. Persistent vomiting, TF held overnight, no documented BM, on reglan BR added, Shaun citarte & supp. HD today. Plan to restart TF at 10ml/hr, will reevaluate in the am. Persistent thro mbocytopenia, Hep on hold, HIT panel ordered, PO eliquis initiated. 03/23/21- Patient remains on the vent and sedated on propofol and fentanyl RASS - 2 to -3. Possible SAT today as tolerated. Patient tolerated trickle feeds overnight, plan to advance TF by 10cc Q8 to 12hrs. Continue current BR and co ntinue reglan for now. Slightr worsening in acidosis from this am, d/w [facility] vent setting adjusted, will repeat ABG at 9pm. 03/24/21- Patient is on the vent and sedated, on fentanyl and propfol. Bilateral subconjunctival hemorrhage with periorbital edema noted this am, pupils are round and reactive, will Cipro/Dex [id number]. Worsening of kidney function from today's labs, plan for HD per Nephro. 03/25/21- Patient remains intubated and on sedatin, RASS 0 to -1, no longer on pressors. Sudden drop in H&H this am, bilateral subconjunctival hemorrhage with no sig change, no signs of any active bleeding. Patient appears neurologically intact, following commands, pupils are round and reactive with + gag and cough, moved all extremities. D/w [facility] patient is too unstable for CT at this time. Eliquis D/Devaughn, 1unit of PRBC ordered. Will continue to trend CBC. Plan for another section of HD today 03/26/21- Patient remains on the vent and sedated. VENICE reported from overnight. Plan for HD again today. H&H back up and stable, no AC at this time, SCDs for VTE phro. D/w [facility] patient is still too unstable for CT scan, will continue neuro exam and will continue to monitor H&H. 03/27/21- VENICE overnight. remains on the vent and sedated. Red localized rashes noted in patient upper chest and face, will r/o allergic reaction,CBC with auto diff and urine eosinophils ordered. Plan for HD today per Nephro. 03/28/21- Patient remains on the vent and sedated. Persistent fevers overnight unrelieved with antipyretic, currently on a cooling blanket. Back on pressors for hypotension, patient already on IV abx, last blood cultureX2 and sputum culture from 03/23 were negative. Continue IV abx, will reculture patient, orders placed for B.culture and sputum culture. ID is also on consult. will continue F/u on culture and continue to monitor BMP and CBC. 03/29: Patient restarted on prednisone given splotchy rash, will resume apixaban for VTE prophylaxis and repeat ABG at 9 PM. Remains with leukocytosis, elevated BUN/creatinine, elevated triglycerides and on Levophed 03/30: HD today, rash is still present and started on IV steroids. plt is low today but will continue to monitor. [facility] made changes to vent-> decrease in MV. ABG in the pm and possible punch biopsy tomorrow if rash is not improved. p ropofol changed to versed 03/31: Heme/oncology consulted yesterday, will start patient on plasmapheresis for possible HUS. Cefepime discontinued today as today was the last day. Patient started on pulse dose steroids of 1 g/day for 3 days. Some improvement noted to eyes this morning. Patient was febrile overnight and received ibuprofen overnight. Acetaminophen allergy confirmed with family, allergy is only to oxycodone and hydrocodone but not the acetaminophen component. Confirmed by family patient has no reaction to [id number] Tylenol. Remains on vasopressor support and sedated with fentanyl, propofol and Versed. Vent mode changed to pressure control ventilation. Patient started on Arctic sun for fever control. Mother updated over telephone this a.m. and this p.m. family meeting held with her mother, sister x 2 and brother and with 2 other unknown people over the phone (1 female and one male) and nurse. Family states that patient is likely to an antibiotic possibly penicillins. This information was not available to us before. 04/01: Hyperkalemia medically treated, patient scheduled for dialysis today, plasmapheresis for possible HUS scheduled for today, steroids should be ending tomorrow, generalized rash/discoloration minimally better. Patient still remains on Arctic sun for temperature regulation. Vent changes per [facility]. 04/02: remains on artic sun but water temp noted to be in the 30s today. Completed plasmapheresis x2 and is now on steroid taper however minimal change noted to rash/discoloration. Eyes are more clear today but remain red under lids (tops of eye). Acidosis noted on ABG. Hyperkalemia and hyperphosphatemeia persists. Sedation increased for RR in to the 40s-50s and vasopressors being titrated as tolerated. 04/04: Patient receiving 1 unit PRBC per heme's recommendation, increased respiratory effort noted, patient is acidotic on ABG and given 1 amp of bicarb in addition to bicarb drip, sedation increased for vent synchrony. No HD per nephrology given tachycardia. Seroquel started. 04/05: Patient on the vent and sedated, still on 3 pressors. Patient to wean off propofol gtt, seroquel increased. Patient afebrile overnight, however artic sun is still in place. Will attempt to take off the cooling blanket today, will continue to assess for fever curve. Continue current IV Abx therapy per ID. Plan for HD today per Nephro. Patient's family at the bedside, thoroughly discussed patient's condition and overall poor prognosis. All questions and concerns were addressed. Team will continue to f/u with family with further updates. 04/06: Patient remains sedated and on the vent, still on fent and versed, propofol was weaned off. Low Hbg this am, 2 units of PRBCs ordered. Patient febrile overnight, patient completed IV abx course, leukocytosis downtrending. c/f for possible drug fever vs DVT, BLE doppler reordered to R/O DVT. Patient remains on high dose pressors, wean pressors as tolerated for MAP of 65. 04/07: Patient appears to be in distress thi am, tachypneic and tachycardic, with increased work of breathing. Propofol stopped this am. IV push versed given and versed gtt was increased to max. D/w CCM plan to possibly restart propofol since patient is not tolerating sedation wean. Patient remains febrile throug hout, pancultured yesterday by ID and IV abx was restarted. Overall poor prognosis at this time. Patient's mother and siblings at the bedside were update on patient's status. Plan for possible family meeting with the care team Monday. 04/08: Patient with worsening CXR this am, increased of vent setting overnight, respiratory acidosis from this am ABG. Patient remains febrile, IV ABx switched to Merrem for VAP coverage, ID is following. Patient remains on sedation and on pressors. Low hemoglobin this am, 1unit of PRBCs ordered. Hyperkalemia noted, per Nephro it is stable no intervention at this time plan for HD tomorrow. Spoke with patient's mom, meeting postponed for possibly next week, case management to arrange. Hospitalist also called and updated patient's mother. Team will continue to follow up. 04/09: Patient condition remains unchanged, on the vent, on sedation, and on 2 pressors. Still febrile, on IV Abx, X1 set of fungal blood culture ordered. D/w ID recommended to start micafungin 100mg Qday. Hyperkalemic this am, plan for HD today. Assessment and Plan #Neuro: Sedated - Intubated and sedated on fentanyl and versed, RASS -5 - Seroquel increased - Plan to wean off propofol, RASS goal of 0 to -3 - PRN EKG for QTC monitoring - Daily SAT and SBT per [facility] - Avoid benzodiazepine to reduce the possibility of delirium - Prn analgesia for CPOT greater than 3 - Maintenance of sleep-wake cycle #CV: Tachycardia, s/p hypertension now with hypotension - Remains ST on the monitor - Remains on high dose pressors - Vasopressor support with levophed, vasopressin - Continue blood pressure monitor per protocol - Maintain MAP above 65 - Continue AC- Eliquis and SCDs for VTE proph #Respiratory: Acute hypoxic respiratory failure #asthma exacerbation #COVID-19 pneumonia/ARDS, #RUL PNA #Bronchospasm (resolved) - ETT on 03/14 - Vent setting: AC/PC- 60%,8,30,max PS60 - AM ABG noted - This am CXR with worsen infiltrated - CCM consulted, appreciate recommendations - Continue IV Steroids and Nebs - Plan to taper steroids - VAP bundle addressed - Aspiration precaution HOB above 30 - Daily SBT and SAT trials as tolerated - Daily ABG and CXR per CCM - Continue SPO2 monitoring for SPO2 goal above 92% #GI: transaminitis #h/o MO and Crohn's disease -Nutrition consulted, appreciate recommendations -Tube feeding: Nepro at goal -Free water decreased 60 mL every 4 hours -Continue BR: Senokot -Continue PPI -BMS in place #: Acute kidney injury likely secondary to ATN #hyponatremia - Initial Scr was wnl - Scr as high as 10.8, 5.1 this am - Patient is now anuric - Nephrology consulted, appreciate recommendations - HD initiated 03/15 - Plan for DH today, possible 1L out is patient tolerate it - Daily weights - Strict intake and output - Avoid nephrotoxic medications; Renally dose medications - Continue IVF for now - Monitor and replace electrolytes as needed #ID: COVID-19 pneumonia #Leukocytosis - WBCs back up, probably reactive; 26.7 this am - artic sun D/C, patient febrile overnight TMAX 101.5 - Patient recultured on 04/07 - IV abx restarted by ID - 04/09 fungal blood culture ordered, Micafungin started per ID - Patient received X1 dose of redemsevir, was D/C due to worsen renal function - S/p X1 dose actemra - Trend COVID-19 inflammatory markers - Isolation/droplet precautions - On Vitamin C/vitamin D/zinc - Continue to F/u on culture data - Daily CBC monitor -Infectious disease consulted, appreciate recommendations #Heme: Anemia #?HUS vs drug reaction #Conjunctival hemorrhage- resolved - s/p plasmapheresis x2 (04/01-04/02) - Hbg 6.9 this am, 2units of PRBCs ordered -Trend CBC -Transfuse hemoglobin less than 7 - Continue Eliquis, restarted on 03/29 - SCDs to bilateral lower extremity while in bed - 03/23 BLE duplex US shows no DVT - BLE doppler reordered - HIT negative #Endo: Hyperglycemia - Hemoglobin A1c 6.3 - SSI Q6hrs - Avoid hypoglycemia - While critically ill target blood glucose of 140-180 The high probability of a clinically significant, sudden or life threatening deterioration of the [multiple] system(s) required my full and direct attention, intervention and personal management. The aggregate critical care time was [60] minutes. This time is in addition to time spent performing reported procedures but includes the following: [x] Data Review and interpretation [x] Patient assessment and monitoring of vital signs [x] Documentation [x] Medication orders and management Disposition Plan: ICU Total Time Spent with Patient (Minutes): 60 History Interval history: Patient is seen and examined at the bedside. Patient remains on the vent and on sedation. Remains on high dose pressors with persistent fevers Hospitalist Physical - Constitutional Vitals: Temp Pulse Resp BP Pulse Ox 101.5 F H 118 H 0 L 117/67 98 04/09/21 03:57 04/09/21 11:16 04/09/21 11:16 04/09/21 08:28 04/09/21 11:16 General appearance: Present: no acute distress, well-nourished, obese, other (Intubated and sedated) - EENT Eyes: Present: PERRL - Respiratory Respiratory effort: labored, accessory muscle use Respiratory: bilateral: rhonchi, wheezing - Cardiovascular Rhythm: regular Heart Sounds: Present: S1 & S2 - Extremities Extremities: no ischemia, pulses intact, pulses symmetrical Extremity abnormal: edema - Peripheral Assessment Generalized Edema Type: Pitting Edema Degree: 4+ Capillary Refill: < 3 seconds Skin Temperature: Warm Peripheral Pulses: within normal limits - Abdominal General gastrointestinal: soft, non-tender, hypoactive bowel sounds - Integumentary Integumentary: Present: erythema, rash - Psychiatric Psychiatric: other (Intubated and sedated) - Neurologic Neurologic: other (Intubated and sedated) - Allied Health Allied health notes reviewed: nursing Results - Labs CBC & Chem 7: 04/09/21 04:00 04/09/21 04:00 Labs: Laboratory Last Values WBC 21.9 K/mm3 (4.5-11.0) H 04/09/21 04:00 RBC 2.70 M/mm3 (3.65-5.03) L 04/09/21 04:00 Hgb 7.8 gm/dl (10.1-14.3) L 04/09/21 04:00 Hct 24.1 % (30.3-42.9) L 04/09/21 04:00 MCV 89 fl (79-97) 04/09/21 04:00 MCH 29 pg (28-32) 04/09/21 04:00 MCHC 32 % (30-34) 04/09/21 04:00 RDW 18.3 % (13.2-15.2) H 04/09/21 04:00 Plt Count 225 K/mm3 (140-440) 04/09/21 04:00 Lymph % (Auto) 10.7 % (13.4-35.0) L 03/28/21 09:37 Iron % (Auto) 5.2 % (0.0-7.3) 03/28/21 09:37 Eos % (Auto) Em Physician 04/07/21 03:50 Baso % (Auto) 0.2 % (0.0-1.8) 03/28/21 09:37 Lymph # (Auto) 1.7 K/mm3 (1.2-5.4) 03/28/21 09:37 Iron # (Auto) 0.9 K/mm3 (0.0-0.8) H 03/28/21 09:37 Eos # (Auto) 0.6 K/mm3 (0.0-0.4) H 03/28/21 09:37 Baso # (Auto) 0.0 K/mm3 (0.0-0.1) 03/28/21 09:37 Add Manual Diff Complete 04/07/21 03:50 Total Counted 100 04/07/21 03:50 Seg Neutrophils % 80.0 % (40.0-70.0) H 03/28/21 09:37 Seg Neuts % (Manual) 67.0 % (40.0-70.0) 04/07/21 03:50 Lymphocytes % (Manual) 10.0 % (13.4-35.0) L 04/07/21 03:50 Monocytes % (Manual) 4.0 % (0.0-7.3) 04/07/21 03:50 Eosinophils % (Manual) 19.0 % (0.0-4.3) H 04/07/21 03:50 Basophils % (Manual) 2.0 % (0.0-1.8) H 04/03/21 04:30 Nucleated RBC % 2.0 % (0.0-0.9) H 04/07/21 03:50 Seg Neutrophils # 13.0 K/mm3 (1.8-7.7) H 03/28/21 09:37 Seg Neutrophils # Man 17.9 K/mm3 (1.8-7.7) H 04/07/21 03:50 Band Neutrophils # 0.0 K/mm3 04/07/21 03:50 Lymphocytes # (Manual) 2.7 K/mm3 (1.2-5.4) 04/07/21 03:50 Abs React Lymphs (Man) 0.0 K/mm3 04/07/21 03:50 Monocytes # (Manual) 1.1 K/mm3 (0.0-0.8) H 04/07/21 03:50 Eosinophils # (Manual) 5.1 K/mm3 (0.0-0.4) H 04/07/21 03:50 Basophils # (Manual) 0.0 K/mm3 (0.0-0.1) 04/07/21 03:50 Metamyelocytes # 0.0 K/mm3 04/07/21 03:50 Myelocytes # 0.0 K/mm3 04/07/21 03:50 Promyelocytes # 0.0 K/mm3 04/07/21 03:50 Blast Cells # 0.0 K/mm3 04/07/21 03:50 WBC Morphology Not Reportable 04/07/21 03:50 Hypersegmented Neuts Not Reportable 04/07/21 03:50 Hyposegmented Neuts Not Reportable 04/07/21 03:50 Hypogranular Neuts Not Reportable 04/07/21 03:50 Smudge Cells Not Reportable 04/07/21 03:50 Toxic Granulation Not Reportable 04/07/21 03:50 Toxic Vacuolation Not Reportable 04/07/21 03:50 Dohle Bodies Not Reportable 04/07/21 03:50 Pelger-Huet Anomaly Not Reportable 04/07/21 03:50 Bridgette Rods Not Reportable 04/07/21 03:50 Platelet Estimate Consistent w auto 04/07/21 03:50 Clumped Platelets Not Reportable 04/07/21 03:50 Plt Clumps, EDTA Not Reportable 04/07/21 03:50 Large Platelets Not Reportable 04/07/21 03:50 Giant Platelets Not Reportable 04/07/21 03:50 Platelet Satelliting Not Reportable 04/07/21 03:50 Plt Morphology Comment Not Reportable 04/07/21 03:50 RBC Morphology Not Reportable 04/07/21 03:50 Dimorphic RBCs Not Reportable 04/07/21 03:50 Polychromasia Not Reportable 04/07/21 03:50 Hypochromasia Not Reportable 04/07/21 03:50 Poikilocytosis Not Reportable 04/07/21 03:50 Anisocytosis 1+ 04/07/21 03:50 Microcytosis Not Reportable 04/07/21 03:50 Macrocytosis Not Reportable 04/07/21 03:50 Spherocytes Not Reportable 04/07/21 03:50 Pappenheimer Bodies Not Reportable 04/07/21 03:50 Sickle Cells Not Reportable 04/07/21 03:50 Target Cells 1+ 04/07/21 03:50 Tear Drop Cells Not Reportable 04/07/21 03:50 Ovalocytes Not Reportable 04/07/21 03:50 Helmet Cells Not Reportable 04/07/21 03:50 Kebede-Witmer Bodies Not Reportable 04/07/21 03:50 Ewing Rings Not Reportable 04/07/21 03:50 Balaji Cells Not Reportable 04/07/21 03:50 Bite Cells Not Reportable 04/07/21 03:50 Crenated Cell Not Reportable 04/07/21 03:50 Elliptocytes Not Reportable 04/07/21 03:50 Acanthocytes (Spur) Not Reportable 04/07/21 03:50 Rouleaux Not Reportable 04/07/21 03:50 Hemoglobin C Crystals Not Reportable 04/07/21 03:50 Schistocytes Not Reportable 04/07/21 03:50 Malaria parasites Not Reportable 04/07/21 03:50 Percent Retic 4.52 % (0.78-2.58) H 03/31/21 09:49 Vaibhav Bodies Not Reportable 04/07/21 03:50 Hem Pathologist Commnt No 04/07/21 03:50 PT 13.9 Sec. (12.2-14.9) 04/04/21 07:55 INR 0.96 (0.87-1.13) 04/04/21 07:55 APTT 28.9 Sec. (24.2-36.6) 04/04/21 07:55 Fibrinogen 455 mg/dl (211-480) 04/07/21 03:50 D-Dimer 2696.79 ng/mlDDU (0-234) H 04/08/21 04:40 Heparin Anti-Xa, Unfract TNR 03/22/21 08:20 ABG pH 7.207 (7.320-7.450) L 04/08/21 20:53 POC ABG pCO2 49.8 mmHg (32.0-48.0) H 04/08/21 20:53 ABG pCO2 83.8 mm Hg 04/08/21 09:55 POC ABG pO2 91.9 mmHg (83-108) 04/08/21 20:53 ABG pO2 75.9 mm Hg (80.0-90.0) L 04/08/21 09:55 POC ABG HCO3 19.3 04/08/21 20:53 ABG HCO3 26.2 mmol/L (20.0-26.0) H 04/08/21 09:55 ABG O2 Saturation 95.9 (0-100) 04/08/21 20:53 ABG O2 Content 10.2 (0.0-44) 04/08/21 09:55 POC ABG Base Excess -8.1 04/08/21 20:53 ABG Base Excess -3.6 mmol/L (-2.0-3.0) L 04/08/21 09:55 ABG Hemoglobin 7.6 (12.0-17.5) L 04/08/21 20:53 ABG Oxyhemoglobin 94.9 (94-98) 04/08/21 20:53 ABG Carboxyhemoglobin 2.2 % (0.0-5.0) 04/08/21 09:55 ABG Methemoglobin 0.3 (0.0-1.5) 04/08/21 20:53 ABG Sodium 127.3 mmol/L (136.0-145.0) L 04/08/21 20:53 ABG Potassium 5.7 mmol/L (3.40-4.50) H 04/08/21 20:53 ABG Chloride 96.0 mmol/L (98-107) L 04/08/21 20:53 ABG Glucose 185 mg/dL (65-95) H 04/08/21 20:53 ABG Lactate Cancelled 04/03/21 20:45 Oxyhemoglobin 88.0 % (95.0-99.0) L 04/08/21 09:55 Carboxyhemoglobin 0.7 (0.5-1.5) 04/08/21 20:53 FiO2 60 % 04/08/21 09:55 FiO2 % 60 04/08/21 20:53 Sodium 131 mmol/L (137-145) L 04/09/21 04:00 Potassium 6.3 mmol/L (3.6-5.0) H* 04/09/21 04:00 Chloride 93.0 mmol/L (98-107) L 04/09/21 04:00 Carbon Dioxide 19 mmol/L (22-30) L 04/09/21 04:00 Anion Gap 25 mmol/L 04/09/21 04:00 BUN 98 mg/dL (7-17) H 04/09/21 04:00 Creatinine 4.6 mg/dL (0.6-1.2) H 04/09/21 04:00 Estimated GFR 14 ml/min 04/09/21 04:00 BUN/Creatinine Ratio 21 % 04/09/21 04:00 Glucose 208 mg/dL (65-100) H 04/09/21 04:00 POC Glucose 191 mg/dL (70-105) H 04/09/21 05:24 Hemoglobin A1c 6.3 % (4-6) H 03/15/21 05:09 Lactic Acid 0.80 mmol/L (0.7-2.0) 04/07/21 03:50 Calcium 8.1 mg/dL (8.4-10.2) L 04/09/21 04:00 Phosphorus 9.30 mg/dL (2.5-4.5) H 04/08/21 04:00 Magnesium 2.00 mg/dL (1.7-2.3) 04/08/21 04:00 Ferritin 151.6 ng/mL (10.0-200.0) 03/18/21 04:30 Total Bilirubin 0.80 mg/dL (0.1-1.2) 04/07/21 04:00 Bilirubin Cancelled 04/03/21 20:45 AST 38 units/L (5-40) 04/07/21 04:00 ALT 38 units/L (7-56) 04/07/21 04:00 Alkaline Phosphatase 167 units/L (35-129) H 04/07/21 04:00 Lactate Dehydrogenase 394 units/L (91-180) H 04/05/21 05:20 C-Reactive Protein 26.10 mg/dL (0.00-1.30) H 04/08/21 04:00 Total Protein 6.6 g/dL (6.3-8.2) 04/07/21 04:00 Albumin 2.8 g/dL (3.9-5) L 04/07/21 04:00 Albumin/Globulin Ratio 0.7 % 04/07/21 04:00 Triglycerides 487 mg/dL (2-149) H 04/08/21 04:00 Serotonin Release Assay TNR 03/22/21 08:20 Procalcitonin < 0.05 ng/mL (<0.15) 03/13/21 15:40 HCG, Qual Negative (Negative) 03/13/21 13:26 Arterial Blood Glucose 185 mg/dL (65-95) H 04/08/21 20:53 Arterial Blood Ionized Calcium 4.3 mg/dL (4.6-5.3) L 04/08/21 20:53 Urine Color Sweta (Yellow) 04/06/21 Unknown Urine Turbidity Cloudy (Clear) 04/06/21 Unknown Urine pH 5.0 (5.0-7.0) 04/06/21 Unknown Ur Specific [place] 1.020 (1.003-1.030) 04/06/21 Unknown Urine Protein 100 mg/dl mg/dL (Negative) 04/06/21 Unknown Urine Glucose (UA) Neg mg/dL (Negative) 04/06/21 Unknown Urine Ketones Neg mg/dL (Negative) 04/06/21 Unknown Urine Blood Mod (Negative) 04/06/21 Unknown Urine Nitrite Neg (Negative) 04/06/21 Unknown Urine Bilirubin Neg (Negative) 04/06/21 Unknown Urine Urobilinogen < 2.0 mg/dL (<2.0) 04/06/21 Unknown Ur Leukocyte Esterase Neg (Negative) 04/06/21 Unknown Urine WBC (Auto) 148.0 /HPF (0.0-6.0) H 04/06/21 Unknown Urine RBC (Auto) > 182.0 /HPF (0.0-6.0) 04/06/21 Unknown U Epithel Cells (Auto) 102.0 /HPF (0-13.0) H 04/06/21 Unknown Urine Bacteria (Auto) 1+ /HPF (Negative) 04/06/21 Unknown Ur Renal Epithelial Cell 151 /LPF 04/06/21 Unknown Urine Mucus Few /HPF 04/06/21 Unknown Urine Yeast (Budding) 3+ /HPF 04/06/21 Unknown Urine Creatinine 40.1 mg/dL (0.1-20.0) H 03/14/21 17:50 Urine Sodium 124 mmol/L 03/14/21 17:50 Random Vancomycin 20.9 ug/mL (0-40.0) 04/08/21 05:00 Heparin-induced Plt Ab Negative (Negative) 03/22/21 08:20 UF Heparin High Dose TNR 03/22/21 08:20 JUAN UFH Low Dose 0.1 TNR 03/22/21 08:20 JUAN UFH Low Dose 0.5 TNR 03/22/21 08:20 Coronavirus (PCR) Negative (Negative) 04/04/21 09:00 Hepatitis A IgM Ab Non-reactive (NonReactive) 03/15/21 05:09 Hep Bs Antigen Nonreactive (Negative) 03/15/21 05:09 Hep B Core IgM Ab Non-reactive (NonReactive) 03/15/21 05:09 Hepatitis C Antibody Non-reactive (NonReactive) 03/15/21 05:09 Schistocytes Smear None seen 03/31/21 12:11 Blood Type O POSITIVE 04/08/21 13:55 Antibody Screen Negative 04/08/21 13:55 Direct Antiglob Test Negative 03/31/21 23:18 NIKOLE, Poly Interpret Negative 03/31/21 23:18 Crossmatch See Detail 04/08/21 13:55 Microbiology: Microbiology 04/07/21 13:41 Urine,Catheterized - Indwelling Catheter Urine Culture - Final NO GROWTH AFTER 48 HOURS 04/06/21 16:46 Peripheral/Venous Blood Culture - Preliminary NO GROWTH AFTER 48 HOURS 04/06/21 17:00 Peripheral/Venous Blood Culture - Preliminary NO GROWTH AFTER 48 HOURS 04/06/21 14:05 Tracheal Aspirate Sputum Culture - Final Enterococcus Faecalis Bazan/IV: Voiding Method Toilet Active Medications - Current Medications Current Medications: Generic Name Dose Route Start Last Admin Trade Name Freq PRN Reason Stop Dose Admin Acetaminophen 650 mg 03/31/21 12:41 04/08/21 23:15 Acetaminophen 325 Mg/10.15 Ml Oral Liqd Unit Dose FEEDTUBE 650 mg Q6H PRN Administration TEMP >/=100.4 Albumin Human 25 gm 04/01/21 08:19 04/01/21 16:23 Albumin Human 25% (25 Gm/100 Ml) Inj IV 25 gm KARLOS PRN Administration Hypotension Albuterol 2.5 mg 03/19/21 00:53 Albuterol 2.5 Mg/3 Ml Nebu IH Q4HRT PRN Shortness Of Breath Albuterol/Ipratropium 1 ampul 03/19/21 08:00 04/09/21 08:29 Ipratropium/Albuterol Sulfate 3 Ml Ampul.Neb IH 1 ampul Q6HRT INESSA Administration Lipase/Protease/Amylase 1 each 03/15/21 11:42 Lipase 10,500/Protease 25,000/Amylase 43,750 (Units) Dr Cap FEEDTUBE PRN PRN For Clogged Feeding Tube Apixaban 2.5 mg 03/29/21 13:00 04/09/21 09:31 Apixaban 2.5 Mg Tab PO 2.5 mg Q12HR INESSA Administration Protocol Ascorbic Acid 500 mg 03/14/21 22:00 04/09/21 09:31 Ascorbic Acid 500 Mg Tab PO 500 mg BID INESSA Administration Calcium Acetate 1,334 mg 04/03/21 20:00 04/09/21 08:07 Calcium Acetate 667 Mg Cap FEEDTUBE 1,334 mg TID INESSA Administration Dextrose 50 ml 03/14/21 11:02 03/15/21 11:40 Dextrose 50% In Water (25gm) 50 Ml Syringe IV 50 ml Q30MIN PRN Administration Hypoglycemia Protocol Famotidine 10 mg 03/17/21 22:00 04/09/21 09:31 Famotidine 10 Mg Tab PO 10 mg BID INESSA Administration Fentanyl 50 mcg 03/15/21 10:43 04/05/21 21:32 Fentanyl 100 Mcg/2 Ml Inj IV 50 mcg Q10MIN PRN Administration ANALGESIA Hydromorphone HCl 1 mg 04/06/21 11:32 04/06/21 17:01 Hydromorphone 1 Mg/1 Ml Inj IV 04/13/21 11:31 1 mg Q4H PRN Administration Pain , Severe (7-10) Hydrophilic Ointment 1 applic 03/14/21 17:50 Lip Therapy Vaseline TP Q2HR PRN Dry Lips Fentanyl Citrate 2,000 mcg in 100 mls @ 6.872 mls/hr 03/15/21 11:00 04/09/21 08:51 Fentanyl Drip Premix IV 4 mcg/kg/hr TITR INESSA 27.488 mls/hr Administration Protocol 1 MCG/KG/HR Sodium Chloride 500 mls @ 1 mls/hr 03/16/21 17:19 Nacl 0.9% 500 Ml IV DIRECT PRN ARTERIAL LINE FLUSH NORepinephrine/NS 8 MG-250 ML 8 mg in 250 mls @ 3.75 mls/hr 03/23/21 11:00 04/09/21 09:39 Norepinephrine/Ns 8 Mg-250 Ml (Double Conc) IV 22 mcg/min TITRATE INESSA 41.25 mls/hr Administration Protocol 2 MCG/MIN Midazolam HCl 100 mg/ Sodium 100 mls @ 1 mls/hr 03/30/21 15:00 04/08/21 23:34 Chloride IV 6 mg/hr TITR INESSA 6 mls/hr Titration Protocol 1 MG/HR Vasopressin 20 unit/ Sodium 101 mls @ 9.09 mls/hr 03/30/21 20:00 04/09/21 04:14 Chloride IV 0.03 units/min TITR INESSA 9.09 mls/hr Administration 0.03 UNITS/MIN Phenylephrine HCl 100 mg/ 100 mls @ 3 mls/hr 03/31/21 04:00 04/06/21 07:58 Sodium Chloride IV 0 mcg/min TITR INESSA 0 mls/hr Titration Protocol 50 MCG/MIN Sodium Chloride 100 mls @ 999 mls/hr 04/01/21 08:19 Nacl 0.9% IV KARLOS PRN Hypotension Sodium Bicarbonate 150 meq/ 1,150 mls @ 75 mls/hr 04/02/21 22:00 04/07/21 16:21 Dextrose IV Infused DIRECT INESSA Infusion Levofloxacin/Dextrose 750 mg in 150 mls @ 100 mls/hr 04/06/21 14:30 04/08/21 14:19 Levaquin 750mg/150ml IV 100 mls/hr Q48H INESSA Administration Protocol Propofol 1,000 mg in 100 mls @ 4.26 mls/hr 04/07/21 13:00 04/09/21 05:14 Diprivan 10 Mg/Ml IV 10 mcg/kg/min TITR INESSA 8.52 mls/hr Administration Protocol 5 MCG/KG/MIN Meropenem 500 mg in 50 mls @ 50 mls/hr 04/08/21 11:00 04/09/21 11:08 Merrem/Ns 500 Mg/50 Ml IV 50 mls/hr Q12H INESSA Administration Insulin Human Lispro 0 unit 03/14/21 12:00 04/09/21 06:11 Insulin Lispro 100 Unit/Ml SUB-Q 2 unit Q6HR INESSA Administration Protocol Lorazepam 1 mg 03/13/21 19:40 03/30/21 19:58 Lorazepam 2 Mg/Ml Vial IV 1 mg Q4H PRN Administration Anxiety Methylprednisolone Sodium Succinate 40 mg 04/05/21 14:00 04/09/21 06:11 Methylprednisolone Sod Succinate 125 Mg/2 Ml Inj IV 40 mg Q8HR INESSA Administration Multi-Ingred Cream/Lotion/Oil/Oint 1 applic 03/14/21 17:50 04/02/21 14:31 Mineral Oil/Petrolatum, White Ophth Oint 3.5 Gm OU 1 applic Q4HR PRN Administration Dry Eye(s) Ondansetron HCl 4 mg 03/13/21 19:30 03/21/21 12:05 Ondansetron 4 Mg/2 Ml Inj IV 4 mg Q8H PRN Administration Nausea And Vomiting Quetiapine Fumarate 300 mg 04/06/21 22:00 04/09/21 09:31 Quetiapine 100 Mg Tab PO 300 mg BID INESSA Administration Senna/Docusate Sodium 1 tab 03/14/21 22:00 04/09/21 09:31 Sennosides/Docusate Sodium 8.6/50 Mg Tab FEEDTUBE 1 tab BID INESSA Administration Simple Syrup 15 ml 03/15/21 11:42 Simple Syrup 15 Ml FEEDTUBE PRN PRN Hypoglycemia Simple Syrup 30 ml 03/15/21 11:42 Simple Syrup 15 Ml FEEDTUBE PRN PRN Hypoglycemia Sodium Bicarbonate 325 mg 03/15/21 11:42 03/21/21 17:21 Sodium Bicarbonate 325 Mg Tab FEEDTUBE 325 mg PRN PRN Administration For Clogged Feeding Tube Sodium Chloride 10 ml 03/13/21 22:00 04/09/21 09:30 Sodium Chloride 0.9% 10 Ml Flush Syringe IV 10 ml BID INESSA Administration Sodium Chloride 10 ml 03/13/21 19:30 Sodium Chloride 0.9% 10 Ml Flush Syringe IV PRN PRN LINE FLUSH Zinc Sulfate 220 mg 03/14/21 22:00 04/09/21 09:31 Zinc Sulfate 220 Mg Cap PO 220 mg BID INESSA Administration Nutrition/Malnutrition Assess - Dietary Evaluation Nutrition/Malnutrition Findings: Nutrition Notes Start: 03/15/21 11:06 Freq: Status: Active Protocol: Document 04/02/21 15:08 REJI (Rec: 04/02/21 15:19 REJI [id number]) Nutrition Notes Initial or Follow up Reassessment Current Diagnosis Acute Kidney Injury, Hypertension,Respiratory Failure Other Pertinent Diagnosis COVID-19 pneu, periorbital edema Current Diet TF - Nepro at 44ml/hr Labs/Tests Na 132 K 5.3 BUN 80 Cr 6.8 BG 174 Triglycerides 579 Pertinent Medications Propofol at 32.985ml/hr ( provides 871 kcal), Human Albumin, Solumedrol, Levophed gtt, Phenylephrine gtt, Vasopressin gtt, Kionex Height 5 ft 5 in Weight 137.438 kg [place] Body Weight (kg) 56.81 BMI 50.4 Weight Status Morbidly Obese Subjective/Other Information Spoke with pt's RN via phone at 15:06. Pt tolerating TF at goal rate, despite being on three pressors. Per RN, been able to decrease pressor concentration. Pt been spiking a fever for past few days; Artic sun blanket in place to lower body temperature. Pt remains on vent support. Percent of energy/protein needs met: 99% energy 73% pro Burn Absent Trauma Absent Minimum of two criteria No #1 Nutrition Diagnosis Swallowing difficulty Diagnosis Progress(for reassessment Continues documentation) Is patient on ventilator? Yes Is Patient Ambulatory and/or Out of Bed No REE-([facility]-confined to bed) 2515.536 Kcal/Kg value to use for calculation 14 Approximate Energy Requirements Using 1924 kcal/Kg Calculation Used for Recommendations Kcal/kg Additional Notes Pro needs >1.2g/kg adjBW: > 117g/day Fluid needs 1-1.5L/day Nutrition Intervention Nutrition Support: Continue Nepro at 44ml/hr. Provide 120ml water flush q4h Kcal 1,901 Protein (gm) 86 Carbohydrates (gm) 170 Fat (gm) 101 Fluid (mL) 768 Fiber (gm) 13 Goal #1 TF tolerance Goal #2 TF to meet at least 75% energy and pro needs Follow-Up By: 04/09/21 Additional Comments F/U: stable TF, vent status, wt, propofol, pressor support, rectal tube <SAURABH ALBRECHT - Last Filed: 04/15/21 07:23> Assessment and Plan Assessment and plan: I saw and evaluated the patient. Discussed with the nurse practitioner and agree with their findings and plan as documented in this note. Hospitalist Physical - Constitutional Vitals: Temp Pulse Resp BP Pulse Ox 102.0 F H 137 H 20 140/76 100 04/15/21 04:00 04/15/21 06:00 04/15/21 06:00 04/15/21 06:00 04/15/21 06:00 Results - Labs CBC & Chem 7: 04/15/21 Unknown 04/15/21 Unknown Labs: Laboratory Last Values WBC 11.8 K/mm3 (4.5-11.0) H 04/15/21 Unknown RBC 2.41 M/mm3 (3.65-5.03) L 04/15/21 Unknown Hgb 7.1 gm/dl (10.1-14.3) L 04/15/21 Unknown Hct 22.4 % (30.3-42.9) L 04/15/21 Unknown MCV 93 fl (79-97) 04/15/21 Unknown MCH 29 pg (28-32) 04/15/21 Unknown MCHC 32 % (30-34) 04/15/21 Unknown RDW 17.0 % (13.2-15.2) H 04/15/21 Unknown Plt Count 38 K/mm3 (140-440) L 04/15/21 Unknown Lymph % (Auto) 10.7 % (13.4-35.0) L 03/28/21 09:37 Iron % (Auto) 5.2 % (0.0-7.3) 03/28/21 09:37 Eos % (Auto) Em Physician 04/07/21 03:50 Baso % (Auto) 0.2 % (0.0-1.8) 03/28/21 09:37 Lymph # (Auto) 1.7 K/mm3 (1.2-5.4) 03/28/21 09:37 Iron # (Auto) 0.9 K/mm3 (0.0-0.8) H 03/28/21 09:37 Eos # (Auto) 0.6 K/mm3 (0.0-0.4) H 03/28/21 09:37 Baso # (Auto) 0.0 K/mm3 (0.0-0.1) 03/28/21 09:37 Add Manual Diff Complete 04/07/21 03:50 Total Counted 100 04/07/21 03:50 Seg Neutrophils % 80.0 % (40.0-70.0) H 03/28/21 09:37 Seg Neuts % (Manual) 67.0 % (40.0-70.0) 04/07/21 03:50 Lymphocytes % (Manual) 10.0 % (13.4-35.0) L 04/07/21 03:50 Monocytes % (Manual) 4.0 % (0.0-7.3) 04/07/21 03:50 Eosinophils % (Manual) 19.0 % (0.0-4.3) H 04/07/21 03:50 Basophils % (Manual) 2.0 % (0.0-1.8) H 04/03/21 04:30 Nucleated RBC % 2.0 % (0.0-0.9) H 04/07/21 03:50 Seg Neutrophils # 13.0 K/mm3 (1.8-7.7) H 03/28/21 09:37 Seg Neutrophils # Man 17.9 K/mm3 (1.8-7.7) H 04/07/21 03:50 Band Neutrophils # 0.0 K/mm3 04/07/21 03:50 Lymphocytes # (Manual) 2.7 K/mm3 (1.2-5.4) 04/07/21 03:50 Abs React Lymphs (Man) 0.0 K/mm3 04/07/21 03:50 Monocytes # (Manual) 1.1 K/mm3 (0.0-0.8) H 04/07/21 03:50 Eosinophils # (Manual) 5.1 K/mm3 (0.0-0.4) H 04/07/21 03:50 Basophils # (Manual) 0.0 K/mm3 (0.0-0.1) 04/07/21 03:50 Metamyelocytes # 0.0 K/mm3 04/07/21 03:50 Myelocytes # 0.0 K/mm3 04/07/21 03:50 Promyelocytes # 0.0 K/mm3 04/07/21 03:50 Blast Cells # 0.0 K/mm3 04/07/21 03:50 WBC Morphology Not Reportable 04/07/21 03:50 Hypersegmented Neuts Not Reportable 04/07/21 03:50 Hyposegmented Neuts Not Reportable 04/07/21 03:50 Hypogranular Neuts Not Reportable 04/07/21 03:50 Smudge Cells Not Reportable 04/07/21 03:50 Toxic Granulation Not Reportable 04/07/21 03:50 Toxic Vacuolation Not Reportable 04/07/21 03:50 Dohle Bodies Not Reportable 04/07/21 03:50 Pelger-Huet Anomaly Not Reportable 04/07/21 03:50 Bridgette Rods Not Reportable 04/07/21 03:50 Platelet Estimate Consistent w auto 04/07/21 03:50 Clumped Platelets Not Reportable 04/07/21 03:50 Plt Clumps, EDTA Not Reportable 04/07/21 03:50 Large Platelets Not Reportable 04/07/21 03:50 Giant Platelets Not Reportable 04/07/21 03:50 Platelet Satelliting Not Reportable 04/07/21 03:50 Plt Morphology Comment Not Reportable 04/07/21 03:50 RBC Morphology Not Reportable 04/07/21 03:50 Dimorphic RBCs Not Reportable 04/07/21 03:50 Polychromasia Not Reportable 04/07/21 03:50 Hypochromasia Not Reportable 04/07/21 03:50 Poikilocytosis Not Reportable 04/07/21 03:50 Anisocytosis 1+ 04/07/21 03:50 Microcytosis Not Reportable 04/07/21 03:50 Macrocytosis Not Reportable 04/07/21 03:50 Spherocytes Not Reportable 04/07/21 03:50 Pappenheimer Bodies Not Reportable 04/07/21 03:50 Sickle Cells Not Reportable 04/07/21 03:50 Target Cells 1+ 04/07/21 03:50 Tear Drop Cells Not Reportable 04/07/21 03:50 Ovalocytes Not Reportable 04/07/21 03:50 Helmet Cells Not Reportable 04/07/21 03:50 Kebede-Witmer Bodies Not Reportable 04/07/21 03:50 Ewing Rings Not Reportable 04/07/21 03:50 Balaji Cells Not Reportable 04/07/21 03:50 Bite Cells Not Reportable 04/07/21 03:50 Crenated Cell Not Reportable 04/07/21 03:50 Elliptocytes Not Reportable 04/07/21 03:50 Acanthocytes (Spur) Not Reportable 04/07/21 03:50 Rouleaux Not Reportable 04/07/21 03:50 Hemoglobin C Crystals Not Reportable 04/07/21 03:50 Schistocytes Not Reportable 04/07/21 03:50 Malaria parasites Not Reportable 04/07/21 03:50 Percent Retic 4.52 % (0.78-2.58) H 03/31/21 09:49 Vaibhav Bodies Not Reportable 04/07/21 03:50 Hem Pathologist Commnt No 04/07/21 03:50 PT 16.3 Sec. (12.2-14.9) H 04/15/21 Unknown INR 1.18 (0.87-1.13) H 04/15/21 Unknown APTT 28.9 Sec. (24.2-36.6) 04/04/21 07:55 Fibrinogen 400 mg/dl (211-480) 04/14/21 09:45 D-Dimer 2696.79 ng/mlDDU (0-234) H 04/08/21 04:40 Heparin Anti-Xa, Unfract TNR 03/22/21 08:20 ABG pH 7.207 (7.320-7.450) L 04/14/21 21:00 POC ABG pCO2 67.6 mmHg (32.0-48.0) H 04/14/21 21:00 ABG pCO2 68.6 mm Hg 04/13/21 03:52 POC ABG pO2 143.7 mmHg (83-108) H 04/14/21 21:00 ABG pO2 98.9 mm Hg (80.0-90.0) H 04/13/21 03:52 POC ABG HCO3 26.2 04/14/21 21:00 ABG HCO3 25.5 mmol/L (20.0-26.0) 04/13/21 03:52 ABG O2 Saturation 98.8 (0-100) 04/14/21 21:00 ABG O2 Content 10.0 (0.0-44) 04/13/21 03:52 POC ABG Base Excess -1.9 04/14/21 21:00 ABG Base Excess -2.9 mmol/L (-2.0-3.0) L 04/13/21 03:52 ABG Hemoglobin 7.6 (12.0-17.5) L 04/14/21 21:00 ABG Oxyhemoglobin 97.6 (94-98) 04/14/21 21:00 ABG Carboxyhemoglobin 1.9 % (0.0-5.0) 04/13/21 03:52 ABG Methemoglobin 0.1 (0.0-1.5) 04/14/21 21:00 ABG Sodium 133.8 mmol/L (136.0-145.0) L 04/14/21 21:00 ABG Potassium 4.0 mmol/L (3.40-4.50) 04/14/21 21:00 ABG Chloride 101.0 mmol/L (98-107) 04/14/21 21:00 ABG Glucose 158 mg/dL (65-95) H 04/14/21 21:00 ABG Lactate Cancelled 04/03/21 20:45 Oxyhemoglobin 94.3 % (95.0-99.0) L 04/13/21 03:52 Carboxyhemoglobin 1.1 (0.5-1.5) 04/14/21 21:00 FiO2 65 % 04/13/21 03:52 FiO2 % 80.0 04/14/21 21:00 Sodium 137 mmol/L (137-145) 04/15/21 Unknown Potassium 4.3 mmol/L (3.6-5.0) 04/15/21 Unknown Chloride 98.5 mmol/L (98-107) 04/15/21 Unknown Carbon Dioxide 24 mmol/L (22-30) 04/15/21 Unknown Anion Gap 19 mmol/L 04/15/21 Unknown BUN 67 mg/dL (7-17) H 04/15/21 Unknown Creatinine 3.3 mg/dL (0.6-1.2) H 04/15/21 Unknown Estimated GFR 20 ml/min 04/15/21 Unknown BUN/Creatinine Ratio 20 % 04/15/21 Unknown Glucose 155 mg/dL (65-100) H 04/15/21 Unknown POC Glucose 147 mg/dL (70-105) H 04/14/21 23:53 Hemoglobin A1c 6.3 % (4-6) H 03/15/21 05:09 Lactic Acid 0.80 mmol/L (0.7-2.0) 04/07/21 03:50 Calcium 8.3 mg/dL (8.4-10.2) L 04/15/21 Unknown Phosphorus 5.70 mg/dL (2.5-4.5) H 04/15/21 Unknown Magnesium 1.90 mg/dL (1.7-2.3) 04/15/21 Unknown Ferritin 151.6 ng/mL (10.0-200.0) 03/18/21 04:30 Total Bilirubin 0.40 mg/dL (0.1-1.2) 04/15/21 Unknown Bilirubin Cancelled 04/03/21 20:45 AST 85 units/L (5-40) H 04/15/21 Unknown ALT 63 units/L (7-56) H 04/15/21 Unknown Alkaline Phosphatase 94 units/L (35-129) 04/15/21 Unknown Lactate Dehydrogenase 394 units/L (91-180) H 04/05/21 05:20 C-Reactive Protein 26.10 mg/dL (0.00-1.30) H 04/08/21 04:00 Total Protein 6.3 g/dL (6.3-8.2) 04/15/21 Unknown Albumin 2.4 g/dL (3.9-5) L 04/15/21 Unknown Albumin/Globulin Ratio 0.6 % 04/15/21 Unknown Triglycerides 406 mg/dL (2-149) H 04/11/21 04:15 Serotonin Release Assay TNR 03/22/21 08:20 Procalcitonin < 0.05 ng/mL (<0.15) 03/13/21 15:40 HCG, Qual Negative (Negative) 03/13/21 13:26 Arterial Blood Glucose 158 mg/dL (65-95) H 04/14/21 21:00 Arterial Blood Ionized Calcium 4.7 mg/dL (4.6-5.3) 04/14/21 21:00 Urine Color Sweta (Yellow) 04/06/21 Unknown Urine Turbidity Cloudy (Clear) 04/06/21 Unknown Urine pH 5.0 (5.0-7.0) 04/06/21 Unknown Ur Specific [place] 1.020 (1.003-1.030) 04/06/21 Unknown Urine Protein 100 mg/dl mg/dL (Negative) 04/06/21 Unknown Urine Glucose (UA) Neg mg/dL (Negative) 04/06/21 Unknown Urine Ketones Neg mg/dL (Negative) 04/06/21 Unknown Urine Blood Mod (Negative) 04/06/21 Unknown Urine Nitrite Neg (Negative) 04/06/21 Unknown Urine Bilirubin Neg (Negative) 04/06/21 Unknown Urine Urobilinogen < 2.0 mg/dL (<2.0) 04/06/21 Unknown Ur Leukocyte Esterase Neg (Negative) 04/06/21 Unknown Urine WBC (Auto) 148.0 /HPF (0.0-6.0) H 04/06/21 Unknown Urine RBC (Auto) > 182.0 /HPF (0.0-6.0) 04/06/21 Unknown U Epithel Cells (Auto) 102.0 /HPF (0-13.0) H 04/06/21 Unknown Urine Bacteria (Auto) 1+ /HPF (Negative) 04/06/21 Unknown Ur Renal Epithelial Cell 151 /LPF 04/06/21 Unknown Urine Mucus Few /HPF 04/06/21 Unknown Urine Yeast (Budding) 3+ /HPF 04/06/21 Unknown Urine Creatinine 40.1 mg/dL (0.1-20.0) H 03/14/21 17:50 Urine Sodium 124 mmol/L 03/14/21 17:50 Random Vancomycin 13.6 ug/mL (0-40.0) 04/12/21 04:30 KIMBERLEY Screen Negative (Negative) 04/07/21 08:27 Heparin-induced Plt Ab Negative (Negative) 03/22/21 08:20 UF Heparin High Dose TNR 03/22/21 08:20 JUAN UFH Low Dose 0.1 TNR 03/22/21 08:20 JUAN UFH Low Dose 0.5 TNR 03/22/21 08:20 Coronavirus (PCR) Negative (Negative) 04/04/21 09:00 Hepatitis A IgM Ab Non-reactive (NonReactive) 03/15/21 05:09 Hep Bs Antigen Nonreactive (Negative) 03/15/21 05:09 Hep B Core IgM Ab Non-reactive (NonReactive) 03/15/21 05:09 Hepatitis C Antibody Non-reactive (NonReactive) 03/15/21 05:09 Schistocytes Smear None seen 03/31/21 12:11 Blood Type O POSITIVE 04/11/21 13:39 Antibody Screen Negative 04/11/21 13:39 Direct Antiglob Test Negative 03/31/21 23:18 NIKOLE, Poly Interpret Negative 03/31/21 23:18 Crossmatch See Detail 04/11/21 13:39 Microbiology: Microbiology 04/11/21 15:05 Bronchial Washings - Left Upper Lobe Respiratory Culture - Preliminary Enterococcus Species Bazan/IV: Voiding Method Incontinent Active Medications - Current Medications Current Medications: Generic Name Dose Route Start Last Admin Trade Name Freq PRN Reason Stop Dose Admin Acetaminophen 650 mg 03/31/21 12:41 04/15/21 05:55 Acetaminophen 325 Mg/10.15 Ml Oral Liqd Unit Dose FEEDTUBE 650 mg Q6H PRN Administration TEMP >/=100.4 Albumin Human 25 gm 04/01/21 08:19 04/01/21 16:23 Albumin Human 25% (25 Gm/100 Ml) Inj IV 25 gm KARLOS PRN Administration Hypotension Albuterol 2.5 mg 03/19/21 00:53 Albuterol 2.5 Mg/3 Ml Nebu IH Q4HRT PRN Shortness Of Breath Albuterol/Ipratropium 1 ampul 03/19/21 08:00 04/15/21 02:11 Ipratropium/Albuterol Sulfate 3 Ml Ampul.Neb IH Not Given Q6HRT INESSA Lipase/Protease/Amylase 1 each 04/09/21 17:17 Lipase 10,500/Protease 25,000/Amylase 43,750 (Units) Cap FEEDTUBE PRN PRN For Clogged Feeding Tube Calcium Acetate 1,334 mg 04/03/21 20:00 04/14/21 22:05 Calcium Acetate 667 Mg Cap FEEDTUBE 1,334 mg TID INESSA Administration Dextrose 50 ml 03/14/21 11:02 03/15/21 11:40 Dextrose 50% In Water (25gm) 50 Ml Syringe IV 50 ml Q30MIN PRN Administration Hypoglycemia Protocol Famotidine 10 mg 03/17/21 22:00 04/14/21 22:04 Famotidine 10 Mg Tab PO 10 mg BID INESSA Administration Fentanyl 50 mcg 03/15/21 10:43 04/05/21 21:32 Fentanyl 100 Mcg/2 Ml Inj IV 50 mcg Q10MIN PRN Administration ANALGESIA Hydrocortisone Sodium Succinate 100 mg 04/10/21 00:00 04/15/21 00:19 Hydrocortisone Sod Succ 100 Mg/2 Ml Vial IV 100 mg Q8H INESSA Administration Hydrophilic Ointment 1 applic 03/14/21 17:50 Lip Therapy Vaseline TP Q2HR PRN Dry Lips Fentanyl Citrate 2,000 mcg in 100 mls @ 6.872 mls/hr 03/15/21 11:00 04/15/21 07:09 Fentanyl Drip Premix IV 4 mcg/kg/hr TITR INESSA 27.488 mls/hr Administration Protocol 1 MCG/KG/HR Sodium Chloride 500 mls @ 1 mls/hr 03/16/21 17:19 Nacl 0.9% 500 Ml IV DIRECT PRN ARTERIAL LINE FLUSH Midazolam HCl 100 mg/ Sodium 100 mls @ 1 mls/hr 03/30/21 15:00 04/14/21 15:45 Chloride IV 4 mg/hr TITR INESSA 4 mls/hr Titration Protocol 1 MG/HR Vasopressin 20 unit/ Sodium 101 mls @ 9.09 mls/hr 03/30/21 20:00 04/15/21 07:13 Chloride IV 0.03 units/min TITR INESSA 9.09 mls/hr Infusion 0.03 UNITS/MIN Phenylephrine HCl 100 mg/ 100 mls @ 3 mls/hr 03/31/21 04:00 04/06/21 07:58 Sodium Chloride IV 0 mcg/min TITR INESSA 0 mls/hr Titration Protocol 50 MCG/MIN Sodium Chloride 100 mls @ 999 mls/hr 04/01/21 08:19 Nacl 0.9% IV KARLOS PRN Hypotension Propofol 1,000 mg in 100 mls @ 4.26 mls/hr 04/07/21 13:00 04/12/21 12:52 Diprivan 10 Mg/Ml IV 0 mcg/kg/min TITR INESSA 0 mls/hr Titration Protocol 5 MCG/KG/MIN Micafungin Sodium 100 mg/ 100 mls @ 100 mls/hr 04/09/21 17:00 04/14/21 17:40 Sodium Chloride IV 100 mls/hr Q24H INESSA Administration Protocol Norepinephrine 8 mg/ Sodium 8 mg in 258 mls @ 3.87 mls/hr 04/12/21 04:00 04/14/21 17:39 Chloride IV 0 mcg/min TITRATE INESSA 0 mls/hr Titration Protocol 2 MCG/MIN MEROPENEM/NS 1 GRAM/100 ML 1 gram in 100 mls @ 100 mls/hr 04/12/21 22:00 04/14/21 22:05 Merrem/Ns 1 Gram/100 Ml IV 100 mls/hr Q24H INESSA Administration Protocol Sodium Chloride 1,000 mls @ 1 mls/hr 04/14/21 16:45 04/14/21 16:57 Nacl 0.9% 1000 Ml IV 1 mls/hr DIRECT INESSA Administration Insulin Human Lispro 0 unit 03/14/21 12:00 04/15/21 06:07 Insulin Lispro 100 Unit/Ml SUB-Q Not Given Q6HR INSESA Protocol Lorazepam 1 mg 03/13/21 19:40 03/30/21 19:58 Lorazepam 2 Mg/Ml Vial IV 1 mg Q4H PRN Administration Anxiety Multi-Ingred Cream/Lotion/Oil/Oint 1 applic 03/14/21 17:50 04/10/21 22:03 Mineral Oil/Petrolatum, White Ophth Oint 3.5 Gm OU 1 applic Q4HR PRN Administration Dry Eye(s) Ondansetron HCl 4 mg 03/13/21 19:30 03/21/21 12:05 Ondansetron 4 Mg/2 Ml Inj IV 4 mg Q8H PRN Administration Nausea And Vomiting Quetiapine Fumarate 300 mg 04/06/21 22:00 04/14/21 22:05 Quetiapine 100 Mg Tab PO 300 mg BID INESSA Administration Senna/Docusate Sodium 1 tab 03/14/21 22:00 04/14/21 22:06 Sennosides/Docusate Sodium 8.6/50 Mg Tab FEEDTUBE Not Given BID INESSA Simple Syrup 15 ml 04/09/21 17:17 Simple Syrup 15 Ml FEEDTUBE PRN PRN Hypoglycemia Simple Syrup 30 ml 04/09/21 17:17 Simple Syrup 15 Ml FEEDTUBE PRN PRN Hypoglycemia Sodium Bicarbonate 325 mg 04/09/21 17:17 Sodium Bicarbonate 325 Mg Tab FEEDTUBE PRN PRN For Clogged Feeding Tube Sodium Chloride 10 ml 03/13/21 22:00 04/14/21 22:17 Sodium Chloride 0.9% 10 Ml Flush Syringe IV 10 ml BID INESSA Administration Sodium Chloride 10 ml 03/13/21 19:30 Sodium Chloride 0.9% 10 Ml Flush Syringe IV PRN PRN LINE FLUSH Nutrition/Malnutrition Assess - Dietary Evaluation Nutrition/Malnutrition Findings: Nutrition Notes Start: 03/15/21 11:06 Freq: Status: Active Protocol: Document 04/14/21 11:13 CANDACE (Rec: 04/14/21 11:52 CANDACE [id number]) Nutrition Notes Initial or Follow up Reassessment Other Pertinent Diagnosis [id number], Transaminitis, Hyperglycemia. Current Diet TF -Glucerna 1.2 Abdullahi (since L 04/14). Labs/Tests 04/14: BUN 74, Crea 3.1, Glu 220. Pertinent Medications 04/14 Vit C, D50w (25 g) mEq, Insulin, Zn, Propofol 1,000 mg /100 ml @ 4.26 ml/hr, others nutritionally unremarkable. Height 5 ft 5 in Weight 142 kg [place] Body Weight (kg) 56.81 BMI 52.0 Weight change and time frame No new reports on body weight changes, Weight Status Morbidly Obese Subjective/Other Information RD consult on change TF from Nepro w/CARBSTEADY to Glucerna 1,2 Abdullahi, due to lack of stock Nepro. Percent of energy/protein needs met: 100% Kcal; 85% AA. Burn Absent Trauma Absent GI Symptoms None Food Allergy No Skin Integrity/Comment Clear, warm, dry. Current % PO Other Minimum of two criteria No Is patient on ventilator? Yes Is Patient Ambulatory and/or Out of Bed No REE-([facility]-confined to bed) 2570.232 Kcal/Kg value to use for calculation 14 Approximate Energy Requirements Using 1988 kcal/Kg Calculation Used for Recommendations Kcal/kg Additional Notes Pro needs >1.2g/kg adjBW: > 117g/day Fluid needs 1-1.5L/day Nutrition Intervention Nutrition Support: Change to Glucerna 1.2 Abdullahi @ 69 ml/hr. Flush: 109 ml water Q 4 hr. Kcal 1,988 Protein (gm) 99 Carbohydrates (gm) 190 Fat (gm) 99 Fluid (mL) 1,334 Fiber (gm) 27 % RDI: 100% Kcal; 85% AA. Goal #1 Maintain body weight within +/ -3% of admission BWt during LOS. Goal #2 Reach and maintain acceptable chemistry lab values during LOS. Follow-Up By: 04/16/21 Additional Comments Continue monitoring TF tolerance, Hydration, and BM.
[2021-04-09] MEDS: MIDAZOLAM 100 MG in SODIUM CHLORIDE 0.9% 80 ML IV SCH (15:39)
[2021-04-09] MEDS ORDERED: SODIUM BICARBONATE 325 MG TAB FEEDTUBE PRN (17:17)
[2021-04-09] MEDS ORDERED: SIMPLE SYRUP 15 ML FEEDTUBE PRN ×2 (17:17)
[2021-04-09] MEDS ORDERED: LIPASE 10,500/PROTEASE 25,000/AMYLASE 43,750 (UNITS) DR CAP FEEDTUBE PRN (17:17)
[2021-04-09] MEDS: MICAFUNGIN 100 MG in SODIUM CHLORIDE 0.9% 100 ML IV SCH (18:43)
[2021-04-10] MEDS: fentaNYL DRIP Premix 2,000 MCG/100 ML BAG IV SCH ×6 (00:05→23:31)
[2021-04-10] MEDS: INSULIN LISPRO 100 UNIT/ML SUB-Q SCH ×4 (00:07→18:02)
[2021-04-10] MEDS: HYDROCORTISONE SOD SUCC 100 MG/2 ML VIAL IV SCH ×3 (00:08→16:15)
[2021-04-10] MEDS: VASOPRESSIN 20 UNIT in SODIUM CHLORIDE 0.9% 100 ML IV SCH ×3 (02:23→23:32)
[2021-04-10 05:27] LABS: Hematocrit 23.3 % (30.3-42.9); Hemoglobin 7.4 gm/dl (10.1-14.3); Mean Corpuscular HGB Conc 32 % (30-34); Mean Corpuscular Volume 88 fl (79-97); Platelet Count 211 K/mm3 (140-440); Red Blood Count 2.65 M/mm3 (3.65-5.03); Red Cell Distribution Width 18.5 % (13.2-15.2)
[2021-04-10 05:47] LABS: Calcium 8.7 mg/dL (8.4-10.2)
[2021-04-10] MEDS: MIDAZOLAM 100 MG in SODIUM CHLORIDE 0.9% 80 ML IV SCH ×2 (07:34→22:02)
[2021-04-10] MEDS: CALCIUM ACETATE 667 MG CAP FEEDTUBE SCH ×3 (08:08→20:12)
--- NOTE | 2021-04-10 08:12 | Hem/Onc Progress Note ---
Subjective Date of service: 04/10/21 Interval history: Heme progress note cpt: [id number] Dx: thrombocytopenia 31yo obese AA woman 300 lbs, with covid infection and ARF requiring hD tried plasma exchange x 2 days, has hqad hypotension, on pressors h/o asthma and intubation 2019 h/o crohns disease per notes DATA REVIEWED BELOW IMP: Continues with severe anemia high WBC is "reactive"-not heme malignancy REC/PLAN: RBC transfusion today off plasma exchange now OK for eliquis 2.5mg vt bid Family meeting with palliative care appropriate Laboratory Last Values WBC 18.0 K/mm3 (4.5-11.0) H 04/10/21 04:45 Hgb 7.4 gm/dl (10.1-14.3) L 04/10/21 04:45 Hct 23.3 % (30.3-42.9) L 04/10/21 04:45 Plt Count 211 K/mm3 (140-440) 04/10/21 04:45 PT 13.9 Sec. (12.2-14.9) 04/04/21 07:55 INR 0.96 (0.87-1.13) 04/04/21 07:55 APTT 28.9 Sec. (24.2-36.6) 04/04/21 07:55 Fibrinogen 455 mg/dl (211-480) 04/07/21 03:50 D-Dimer 2696.79 ng/mlDDU (0-234) H 04/08/21 04:40 Ferritin 151.6 ng/mL (10.0-200.0) 03/18/21 04:30 Total Bilirubin 0.80 mg/dL (0.1-1.2) 04/07/21 04:00 Bilirubin Cancelled 04/03/21 20:45 AST 38 units/L (5-40) 04/07/21 04:00 ALT 38 units/L (7-56) 04/07/21 04:00 Alkaline Phosphatase 167 units/L (35-129) H 04/07/21 04:00 Lactate Dehydrogenase 394 units/L (91-180) H 04/05/21 05:20 Heparin-induced Plt Ab Negative (Negative) 03/22/21 08:20 UF Heparin High Dose TNR 03/22/21 08:20 JUAN UFH Low Dose 0.1 TNR 03/22/21 08:20 JUAN UFH Low Dose 0.5 TNR 03/22/21 08:20 Coronavirus (PCR) Negative (Negative) 04/04/21 09:00 Hepatitis A IgM Ab Non-reactive (NonReactive) 03/15/21 05:09 Hep Bs Antigen Nonreactive (Negative) 03/15/21 05:09 Hep B Core IgM Ab Non-reactive (NonReactive) 03/15/21 05:09 Hepatitis C Antibody Non-reactive (NonReactive) 03/15/21 05:09 Schistocytes Smear None seen 03/31/21 12:11 Blood Type O POSITIVE 04/08/21 13:55 Antibody Screen Negative 04/08/21 13:55 Direct Antiglob Test Negative 03/31/21 23:18 NIKOLE, Poly Interpret Negative 03/31/21 23:18 Crossmatch See Detail 04/08/21 13:55 Objective - Constitutional Vitals: Last Vital Signs Temp 99.4 F 04/10/21 07:09 Pulse 114 H 04/10/21 06:01 Resp 22 04/10/21 06:01 BP 106/58 04/10/21 03:55 Pulse Ox 100 04/10/21 06:01 - Labs Lab Results: Laboratory Results - last 24 hr 04/09/21 04/09/21 04/09/21 12:42 16:59 21:00 WBC RBC Hgb Hct MCV MCH MCHC RDW Plt Count ABG pH 7.192 L POC ABG pCO2 63.4 H POC ABG pO2 83.0 POC ABG HCO3 23.8 ABG O2 Saturation 94.0 POC ABG Base Excess -4.6 ABG Hemoglobin 8.7 L ABG Oxyhemoglobin 92.9 L ABG Methemoglobin 0.3 ABG Sodium 135.1 L ABG Potassium 4.2 ABG Chloride 102.0 ABG Glucose 208 H Carboxyhemoglobin 0.9 FiO2 % 60.0 Sodium Potassium Chloride Carbon Dioxide Anion Gap BUN Creatinine Estimated GFR BUN/Creatinine Ratio Glucose POC Glucose 198 H 218 H Calcium Arterial Blood Glucose 208 H Random Vancomycin 04/09/21 04/10/21 04/10/21 23:31 04:45 04:45 WBC 18.0 H RBC 2.65 L Hgb 7.4 L Hct 23.3 L MCV 88 MCH 28 MCHC 32 RDW 18.5 H Plt Count 211 ABG pH POC ABG pCO2 POC ABG pO2 POC ABG HCO3 ABG O2 Saturation POC ABG Base Excess ABG Hemoglobin ABG Oxyhemoglobin ABG Methemoglobin ABG Sodium ABG Potassium ABG Chloride ABG Glucose Carboxyhemoglobin FiO2 % Sodium Potassium Chloride Carbon Dioxide Anion Gap BUN Creatinine Estimated GFR BUN/Creatinine Ratio Glucose POC Glucose 162 H Calcium Arterial Blood Glucose Random Vancomycin 10.3 04/10/21 04/10/21 04:45 05:01 WBC RBC Hgb Hct MCV MCH MCHC RDW Plt Count ABG pH POC ABG pCO2 POC ABG pO2 POC ABG HCO3 ABG O2 Saturation POC ABG Base Excess ABG Hemoglobin ABG Oxyhemoglobin ABG Methemoglobin ABG Sodium ABG Potassium ABG Chloride ABG Glucose Carboxyhemoglobin FiO2 % Sodium 137 Potassium 5.5 H Chloride 98.5 Carbon Dioxide 21 L Anion Gap 23 BUN 83 H Creatinine 3.4 H Estimated GFR 19 BUN/Creatinine Ratio 24 Glucose 211 H POC Glucose 183 H Calcium 8.7 Arterial Blood Glucose Random Vancomycin Medications & Allergies - Medications Allergies/Adverse Reactions: Allergies oxycodone HCl [From Percocet] Allergy (Severe, Verified 03/30/21 14:01) Swelling cefepime Allergy (Verified 04/06/21 13:38) Rash hydrocodone bitartrate [From Vicodin] Allergy (Verified 03/31/21 08:20) Swelling ALLERGY TO TYLENOL VS OXYCODONE ACTIVE ORDER REMOVED FROM JUL SINCE UNABLE TO CONFIRM WITH FAMILY Home Medications: Home Medications Medication Instructions Recorded Confirmed Last Taken Type Chlorhexidine Mouthwash [Peridex] 15 ml MM BID #1 bottle 10/11/20 03/13/21 Unknown Rx Clindamycin [Clindamycin CAP] 300 mg PO Q8H #21 cap 10/11/20 03/13/21 Unknown Rx Naproxen 500 mg PO Q12H PRN #12 tablet 10/11/20 03/13/21 Unknown Rx Butalb/Acetamin/Caff 50-325-40 1 - 2 tab PO Q6HR PRN #15 tab 12/05/20 03/13/21 Unknown Rx [Fioricet 50-325-40] Famotidine [Pepcid] 20 mg PO BID #30 tablet 12/05/20 03/13/21 Unknown Rx Ketorolac [Toradol] 10 mg PO Q8H PRN #20 tablet 12/05/20 03/13/21 Unknown Rx Ondansetron [Zofran Odt] 4 mg PO Q6HR PRN #20 tab.rapdis 12/05/20 03/13/21 Unknown Rx Albuterol Sulfate [Proair 90 mcg IH Q4HR PRN #2 aer.[email or web address] 01/01/21 03/13/21 Unknown Rx Respiclick] Mupirocin [Bactroban 2% OINT] 1 applic TP BID 7 Days #1 tube 01/01/21 03/13/21 Unknown Rx Triamcinolone Aceton 0.1% (Nf) 1 applic TP BID 14 Days #1 tube 01/01/21 03/13/21 Unknown Rx [Kenalog (NF)] predniSONE [Deltasone] 40 mg PO QDAY #8 tab 01/01/21 03/13/21 Unknown Rx Active Medications: Generic Name Dose Route Start Last Admin Trade Name Freq PRN Reason Stop Dose Admin Acetaminophen 650 mg 03/31/21 12:41 04/08/21 23:15 Acetaminophen 325 Mg/10.15 Ml Oral Liqd Unit Dose FEEDTUBE 650 mg Q6H PRN Administration TEMP >/=100.4 Albumin Human 25 gm 04/01/21 08:19 04/01/21 16:23 Albumin Human 25% (25 Gm/100 Ml) Inj IV 25 gm KARLOS PRN Administration Hypotension Albuterol 2.5 mg 03/19/21 00:53 Albuterol 2.5 Mg/3 Ml Nebu IH Q4HRT PRN Shortness Of Breath Albuterol/Ipratropium 1 ampul 03/19/21 08:00 04/09/21 22:07 Ipratropium/Albuterol Sulfate 3 Ml Ampul.Neb IH Not Given Q6HRT INESSA Lipase/Protease/Amylase 1 each 04/09/21 17:17 Lipase 10,500/Protease 25,000/Amylase 43,750 (Units) Dr White FEEDTUBE PRN PRN For Clogged Feeding Tube Apixaban 2.5 mg 03/29/21 13:00 04/09/21 21:49 Apixaban 2.5 Mg Tab PO 2.5 mg Q12HR INESSA Administration Protocol Ascorbic Acid 500 mg 03/14/21 22:00 04/09/21 21:53 Ascorbic Acid 500 Mg Tab PO 500 mg BID INESSA Administration Calcium Acetate 1,334 mg 04/03/21 20:00 04/10/21 08:08 Calcium Acetate 667 Mg Cap FEEDTUBE 1,334 mg TID INESSA Administration Dextrose 50 ml 03/14/21 11:02 03/15/21 11:40 Dextrose 50% In Water (25gm) 50 Ml Syringe IV 50 ml Q30MIN PRN Administration Hypoglycemia Protocol Famotidine 10 mg 03/17/21 22:00 04/09/21 21:51 Famotidine 10 Mg Tab PO 10 mg BID INESSA Administration Fentanyl 50 mcg 03/15/21 10:43 04/05/21 21:32 Fentanyl 100 Mcg/2 Ml Inj IV 50 mcg Q10MIN PRN Administration ANALGESIA Hydrocortisone Sodium Succinate 100 mg 04/10/21 00:00 04/10/21 08:08 Hydrocortisone Sod Succ 100 Mg/2 Ml Vial IV 100 mg Q8H INESSA Administration Hydromorphone HCl 1 mg 04/06/21 11:32 04/06/21 17:01 Hydromorphone 1 Mg/1 Ml Inj IV 04/13/21 11:31 1 mg Q4H PRN Administration Pain , Severe (7-10) Hydrophilic Ointment 1 applic 03/14/21 17:50 Lip Therapy Vaseline TP Q2HR PRN Dry Lips Fentanyl Citrate 2,000 mcg in 100 mls @ 6.872 mls/hr 03/15/21 11:00 04/10/21 00:05 Fentanyl Drip Premix IV 4 mcg/kg/hr TITR INESSA 27.488 mls/hr Administration Protocol 1 MCG/KG/HR Sodium Chloride 500 mls @ 1 mls/hr 03/16/21 17:19 Nacl 0.9% 500 Ml IV DIRECT PRN ARTERIAL LINE FLUSH NORepinephrine/NS 8 MG-250 ML 8 mg in 250 mls @ 3.75 mls/hr 03/23/21 11:00 04/10/21 07:20 Norepinephrine/Ns 8 Mg-250 Ml (Double Conc) IV 8 mcg/min TITRATE INESSA 15 mls/hr Titration Protocol 2 MCG/MIN Midazolam HCl 100 mg/ Sodium 100 mls @ 1 mls/hr 03/30/21 15:00 04/10/21 07:34 Chloride IV 6 mg/hr TITR INESSA 6 mls/hr Administration Protocol 1 MG/HR Vasopressin 20 unit/ Sodium 101 mls @ 9.09 mls/hr 03/30/21 20:00 04/10/21 02:23 Chloride IV 0.03 units/min TITR INESSA 9.09 mls/hr Administration 0.03 UNITS/MIN Phenylephrine HCl 100 mg/ 100 mls @ 3 mls/hr 03/31/21 04:00 04/06/21 07:58 Sodium Chloride IV 0 mcg/min TITR INESSA 0 mls/hr Titration Protocol 50 MCG/MIN Sodium Chloride 100 mls @ 999 mls/hr 04/01/21 08:19 Nacl 0.9% IV KARLOS PRN Hypotension Sodium Bicarbonate 150 meq/ 1,150 mls @ 75 mls/hr 04/02/21 22:00 04/07/21 16:21 Dextrose IV Infused DIRECT INESSA Infusion Levofloxacin/Dextrose 750 mg in 150 mls @ 100 mls/hr 04/06/21 14:30 04/08/21 14:19 Levaquin 750mg/150ml IV 100 mls/hr Q48H INESSA Administration Protocol Propofol 1,000 mg in 100 mls @ 4.26 mls/hr 04/07/21 13:00 04/10/21 02:22 Diprivan 10 Mg/Ml IV 10 mcg/kg/min TITR INESSA 8.52 mls/hr Administration Protocol 5 MCG/KG/MIN Meropenem 500 mg in 50 mls @ 50 mls/hr 04/08/21 11:00 04/09/21 23:59 Merrem/Ns 500 Mg/50 Ml IV 50 mls/hr Q12H INESSA Administration Micafungin Sodium 100 mg/ 100 mls @ 100 mls/hr 04/09/21 17:00 04/09/21 18:43 Sodium Chloride IV 100 mls/hr Q24H INESSA Administration Protocol Insulin Human Lispro 0 unit 03/14/21 12:00 04/10/21 05:50 Insulin Lispro 100 Unit/Ml SUB-Q 2 unit Q6HR INESSA Administration Protocol Lorazepam 1 mg 03/13/21 19:40 03/30/21 19:58 Lorazepam 2 Mg/Ml Vial IV 1 mg Q4H PRN Administration Anxiety Multi-Ingred Cream/Lotion/Oil/Oint 1 applic 03/14/21 17:50 04/02/21 14:31 Mineral Oil/Petrolatum, White Ophth Oint 3.5 Gm OU 1 applic Q4HR PRN Administration Dry Eye(s) Ondansetron HCl 4 mg 03/13/21 19:30 03/21/21 12:05 Ondansetron 4 Mg/2 Ml Inj IV 4 mg Q8H PRN Administration Nausea And Vomiting Quetiapine Fumarate 300 mg 04/06/21 22:00 04/09/21 21:51 Quetiapine 100 Mg Tab PO 300 mg BID INESSA Administration Senna/Docusate Sodium 1 tab 03/14/21 22:00 04/09/21 21:51 Sennosides/Docusate Sodium 8.6/50 Mg Tab FEEDTUBE 1 tab BID INESSA Administration Simple Syrup 15 ml 03/15/21 11:42 Simple Syrup 15 Ml FEEDTUBE PRN PRN Hypoglycemia Simple Syrup 30 ml 03/15/21 11:42 Simple Syrup 15 Ml FEEDTUBE PRN PRN Hypoglycemia Simple Syrup 15 ml 04/09/21 17:17 Simple Syrup 15 Ml FEEDTUBE PRN PRN Hypoglycemia Simple Syrup 30 ml 04/09/21 17:17 Simple Syrup 15 Ml FEEDTUBE PRN PRN Hypoglycemia Sodium Bicarbonate 325 mg 03/15/21 11:42 03/21/21 17:21 Sodium Bicarbonate 325 Mg Tab FEEDTUBE 325 mg PRN PRN Administration For Clogged Feeding Tube Sodium Bicarbonate 325 mg 04/09/21 17:17 Sodium Bicarbonate 325 Mg Tab FEEDTUBE PRN PRN For Clogged Feeding Tube Sodium Chloride 10 ml 03/13/21 22:00 04/09/21 21:54 Sodium Chloride 0.9% 10 Ml Flush Syringe IV 10 ml BID INESSA Administration Sodium Chloride 10 ml 03/13/21 19:30 Sodium Chloride 0.9% 10 Ml Flush Syringe IV PRN PRN LINE FLUSH Zinc Sulfate 220 mg 03/14/21 22:00 04/09/21 21:53 Zinc Sulfate 220 Mg Cap PO 220 mg BID INESSA Administration
[2021-04-10] MEDS ORDERED: VANCOMYCIN/NS 1 GM/250 ML 1 GM/250 ML BAG IV ONE (09:00)
[2021-04-10] MEDS: IPRATROPIUM/ALBUTEROL SULFATE 3 ML AMPUL.NEB IH SCH ×4 (09:05→20:40)
[2021-04-10] MEDS: NORepinephrine/NS 8 MG-250 ML 8 MG/250 ML INFUS..BTL IV SCH ×2 (09:29→23:57)
[2021-04-10] MEDS: ASCORBIC ACID 500 MG TAB PO SCH ×2 (09:59→22:02)
[2021-04-10] MEDS: FAMOTIDINE 10 MG TAB PO SCH ×2 (09:59→22:02)
[2021-04-10] MEDS: APIXABAN 2.5 MG TAB PO SCH ×2 (09:59→22:01)
[2021-04-10] MEDS: SENNOSIDES/DOCUSATE SODIUM 8.6/50 MG TAB FEEDTUBE SCH ×2 (09:59→22:02)
[2021-04-10] MEDS: QUEtiapine 100 MG TAB PO SCH ×2 (09:59→22:02)
[2021-04-10] MEDS: ZINC SULFATE 220 MG CAP PO SCH ×2 (09:59→22:02)
[2021-04-10] MEDS: MEROPENEM/NS 500 MG/50 ML 500 MG/50 ML BAG IV SCH ×2 (10:00→23:30)
--- NOTE | 2021-04-10 12:10 | Progress Note ---
Assessment and Plan Assessment and plan: This is a 31-year-old female with asthma, morbid obesity and Crohn's disease admitted for Acute hypxemic respiratory failure 2/2 COVID PNA requiring ventilatory support and acute renal failure now on HD. Hospital Course to Date: 03/14/21- Patient is s/p intubation from this morning, sedated on propofol and fentanyl RASS -3 to -4. ETT above the clavicles advanced by 2cc. Continue nebs and IV steroids per CCM. COVID swab pending. Hyperkalemia improved, X1 dose of kayaxalate ordered. Low BP and low urine output this am, fluid bolus challenge, 500cc of NS bolus given. Continue to monitor electrolytes and renal function, repeat BMP this afternoon. 03/15: Patient's renal function noted to be significantly worse today, patient was hyperkalemic and this was medically treated. Patient initiated on hemodialysis today. infectious disease was consulted today. 03/16: No acute events reported overnight, patient received hemodialysis yesterday. Patient is currently on propofol and fentanyl. 03/17: Patient received hemodialysis today, patient is slightly acidotic on ABG h owever [facility] is allowing for permissive hypercapnia, tracheal aspirate with Staph aureus and ID is aware. 03/18: Patient is having high residuals today and Reglan was started, patient will receive HD daily per nephrology, correct her change in FiO2 as tolerated. 03/19: HD per nephrology today, antibiotics changed to cefazolin. Patient did not tolerate tube feedings as she had high residuals this morning and they were turned off. Not restarted yet. Updated family at bedside today 03/20: HD today, ddimer noted to be >1000, Tolerating trickle TF. Stat BLE dopplar US 03/21: Patient is not tolerating TF, CXR shows worsening infiltrates, [facility] made changes to vent, TF on hold and started on IVF. 03/22/21- Patient remains intubated and on sedation. Persistent vomiting, TF held overnight, no documented BM, on reglan BR added, Shaun citarte & supp. HD today. Plan to restart TF at 10ml/hr, will reevaluate in the am. Persistent thrombocytopenia, Hep on hold, HIT panel ordered, PO eliquis initiated. 03/23/21- Patient remains on the vent and sedated on propofol and fentanyl RASS - 2 to -3. Possible SAT today as tolerated. Patient tolerated trickle feeds overnight, plan to advance TF by 10cc Q8 to 12hrs. Continue current BR and continue reglan for now. Slightr worsening in acidosis from this am, d/w [facility] vent setting adjusted, will repeat ABG at 9pm. 03/24/21- Patient is on the vent and sedated, on fentanyl and propfol. Bilateral subconjunctival hemorrhage with periorbital edema noted this am, pupils are round and reactive, will Cipro/Dex [id number]. Worsening of kidney function from today's labs, plan for HD per Nephro. 03/25/21- Patient remains intubated and on sedatin, RASS 0 to -1, no longer on pressors. Sudden drop in H&H this am, bilateral subconjunctival hemorrhage with no sig change, no signs of any active bleeding. Patient appears neurologically intact, following commands, pupils are round and reactive with + gag and cough, moved all extremities. D/w [facility] patient is too unstable for CT at this time. Eliquis D/Devaughn, 1unit of PRBC ordered. Will continue to trend CBC. Plan for another section of HD today 03/26/21- Patient remains on the vent and sedated. VENICE reported from overnight. Plan for HD again today. H&H back up and stable, no AC at this time, SCDs for VTE phro. D/w [facility] patient is still too unstable for CT scan, will continue neuro exam and will continue to monitor H&H. 03/27/21- VENICE overnight. remains on the vent and sedated. Red localized rashes noted in patient upper chest and face, will r/o allergic reaction,CBC with auto diff and urine eosinophils ordered. Plan for HD today per Nephro. 03/28/21- Patient remains on the vent and sedated. Persistent fevers overnight unrelieved with antipyretic, currently on a cooling blanket. Back on pressors for hypotension, patient already on IV abx, last blood cultureX2 and sputum culture from 03/23 were negative. Continue IV abx, will reculture patient, orders placed for B.culture and sputum culture. ID is also on consult. will continue F/u on culture and continue to monitor BMP and CBC. 03/29: Patient restarted on prednisone given splotchy rash, will resume apixaban for VTE prophylaxis and repeat ABG at 9 PM. Remains with leukocytosis, elevated BUN/creatinine, elevated triglycerides and on Levophed 03/30: HD today, rash is still present and started on IV steroids. plt is low today but will continue to monitor. [facility] made changes to vent-> decrease in MV. ABG in the pm and possible punch biopsy tomorrow if rash is not improved. propofol changed to versed 03/31: Heme/oncology consulted yesterday, will start patient on plasmapheresis for possible HUS. Cefepime discontinued today as today was the last day. Patient started on pulse dose steroids of 1 g/day for 3 days. Some improvement noted to eyes this morning. Patient was febrile overnight and received ibuprofen overnight. Acetaminophen allergy confirmed with family, allergy is only to oxycodone and hydrocodone but not the acetaminophen component. Confirmed by family patient has no reaction to [id number] Tylenol. Remains on vasopressor support and sedated with fentanyl, propofol and Versed. Vent mode changed to pressure control ventilation. Patient started on Arctic sun for fever control. Mother updated over telephone this a.m. and this p.m. family meeting held with her mother, sister x 2 and brother and with 2 other unknown people over the phone (1 female and one male) and nurse. Family states that patient is likely to an antibiotic possibly penicillins. This information was not available to us before. 04/01: Hyperkalemia medically treated, patient scheduled for dialysis today, plasmapheresis for possible HUS scheduled for today, steroids should be ending tomorrow, generalized rash/discoloration minimally better. Patient still remains on Arctic sun for temperature regulation. Vent changes per [facility]. 04/02: remains on artic sun but water temp noted to be in the 30s today. Completed plasmapheresis x2 and is now on steroid taper however minimal change noted to rash/discoloration. Eyes are more clear today but remain red under lids (tops of eye). Acidosis noted on ABG. Hyperkalemia and hyperphosphatemeia persists. Sedation increased for RR in to the 40s-50s and vasopressors being titrated as tolerated. 04/04: Patient receiving 1 unit PRBC per heme's recommendation, increased respiratory effort noted, patient is acidotic on ABG and given 1 amp of bicarb in addition to bicarb drip, sedation increased for vent synchrony. No HD per nephrology given tachycardia. Seroquel started. 04/05: Patient on the vent and sedated, still on 3 pressors. Patient to wean off propofol gtt, seroquel increased. Patient afebrile overnight, however artic sun is still in place. Will attempt to take off the cooling blanket today, will continue to assess for fever curve. Continue current IV Abx therapy per ID. Plan for HD today per Nephro. Patient's family at the bedside, thoroughly discussed patient's condition and overall poor prognosis. All questions and concerns were addressed. Team will continue to f/u with family with further updates. 04/06: Patient remains sedated and on the vent, still on fent and versed, propofol was weaned off. Low Hbg this am, 2 units of PRBCs ordered. Patient febrile overnight, patient completed IV abx course, leukocytosis downtrending. c/f for possible drug fever vs DVT, BLE doppler reordered to R/O DVT. Patient remains on high dose pressors, wean pressors as tolerated for MAP of 65. 04/07: Patient appears to be in distress thi am, tachypneic and tachycardic, with increased work of breathing. Propofol stopped this am. IV push versed given and versed gtt was increased to max. D/w CCM plan to possibly restart propofol since patient is not tolerating sedation wean. Patient remains febrile throughout, pancultured yesterday by ID and IV abx was restarted. Overall poor prognosis at this time. Patient's mother and siblings at the bedside were update on patient's status. Plan for possible family meeting with the care team Monday. 04/08: Patient with worsening CXR this am, increased of vent setting overnight, respiratory acidosis from this am ABG. Patient remains febrile, IV ABx switched to Merrem for VAP coverage, ID is following. Patient remains on sedation and on pressors. Low hemoglobin this am, 1unit of PRBCs ordered. Hyperkalemia noted, per Nephro it is stable no intervention at this time plan for HD tomorrow. Spoke with patient's mom, meeting postponed for possibly next week, case management to arrange. Hospitalist also called and updated patient's mother. Team will continue to follow up. 04/09: Patient condition remains unchanged, on the vent, on sedation, and on 2 pressors. Still febrile, on IV Abx, X1 set of fungal blood culture ordered. D/w ID recommended to start micafungin 100mg Qday. Hyperkalemic this am, plan for HD today. 04/10: VENICE overnight. Patient remains on the vent and sedated. Afebrile overnight, stress steroids added, pressors requirement is going down. HD overnight 3L out, plan for HD again today. Continue IV Abx and antifungal, F/u on culture data. Assessment and Plan #Neuro: Sedated - Intubated and sedated on fentanyl and versed, RASS -5 - On Seroquel - Plan to wean off propofol, RASS goal of 0 to -3 - PRN EKG for QTC monitoring - Daily SAT and SBT per CCM - Avoid benzodiazepine to reduce the possibility of delirium - Prn analgesia for CPOT greater than 3 - Maintenance of sleep-wake cycle #CV: Tachycardia, s/p hypertension now with hypotension - Remains ST on the monitor - Remains on high dose pressors - Vasopressor support with levophed, vasopressin - Stress steroids added - Continue blood pressure monitor per protocol - Maintain MAP above 65 - Continue AC- Eliquis and SCDs for VTE proph #Respiratory: Acute hypoxic respiratory failure #asthma exacerbation #COVID-19 pneumonia/ARDS, #RUL PNA #Bronchospasm (resolved) - ETT on 03/14 - Vent setting: AC/PC- 60%,8,30,max PS60 - AM ABG noted - CCM consulted, appreciate recommendations - Continue IV Steroids and Nebs - VAP bundle addressed - Aspiration precaution HOB above 30 - Daily SBT and SAT trials as tolerated - Daily ABG and CXR per CCM - Continue SPO2 monitoring for SPO2 goal above 92% #GI: transaminitis #h/o MO and Crohn's disease -Nutrition consulted, appreciate recommendations -Tube feeding: Nepro at goal -Free water decreased 60 mL every 4 hours -Continue BR: Senokot -Continue PPI -BMS in place #: Acute kidney injury likely secondary to ATN #hyponatremia - Initial Scr was wnl - Scr as high as 10.8, 5.1 this am - Patient is now anuric - Nephrology consulted, appreciate recommendations - HD initiated 03/15 - 04/09 HD overnight 3L out - Plan for HD again today - Daily weights - Strict intake and output - Avoid nephrotoxic medications; Renally dose medications - Monitor and replace electrolytes as needed #ID: COVID-19 pneumonia #Leukocytosis - WBCs back up, probably reactive; 26.7 this am - artic sun D/C, patient febrile overnight TMAX 101.5 - Patient recultured on 04/07 - IV abx restarted by ID - 04/09 fungal blood culture ordered, Micafungin started per ID - Stress dose steroids added - Patient received X1 dose of redemsevir, was D/C due to worsen renal function - S/p X1 dose actemra - Trend COVID-19 inflammatory markers - Isolation/droplet precautions - On Vitamin C/vitamin D/zinc - Continue to F/u on culture data - Daily CBC monitor - Infectious disease consulted, appreciate recommendations #Heme: Anemia #?HUS vs drug reaction #Conjunctival hemorrhage- resolved - s/p plasmapheresis x2 (04/01-04/02) - S/p 2units of PRBCs - H&H stable - Trend CBC - Transfuse hemoglobin less than 7 - Continue Eliquis, restarted on 03/29 - SCDs to bilateral lower extremity while in bed - 03/23 BLE duplex US shows no DVT - BLE doppler reordered - HIT negative #Endo: Hyperglycemia - Hemoglobin A1c 6.3 - SSI Q6hrs - Avoid hypoglycemia - While critically ill target blood glucose of 140-180 The high probability of a clinically significant, sudden or life threatening deterioration of the [multiple] system(s) required my full and direct attention, intervention and personal management. The aggregate critical care time was [60] minutes. This time is in addition to time spent performing reported procedures but includes the following: [x] Data Review and interpretation [x] Patient assessment and monitoring of vital signs [x] Documentation [x] Medication orders and management Disposition Plan: ICU Total Time Spent with Patient (Minutes): 60 History Interval history: Patient is seen and examined at the bedside. Patient remains on the vent and on sedation. Afebrile overnight, pressors requirement is going down Hospitalist Physical - Constitutional Vitals: Temp Pulse Resp BP Pulse Ox 99.4 F 127 H 16 113/59 98 04/10/21 07:09 04/10/21 10:31 04/10/21 10:31 04/10/21 09:04 04/10/21 10:31 General appearance: Present: no acute distress, well-nourished, obese, other (Intubated and sedated) - EENT Eyes: Present: PERRL - Respiratory Respiratory effort: labored, accessory muscle use Respiratory: bilateral: rhonchi, wheezing - Cardiovascular Rhythm: regular Heart Sounds: Present: S1 & S2 - Extremities Extremities: no ischemia, pulses intact, pulses symmetrical Extremity abnormal: edema - Peripheral Assessment Generalized Edema Type: Pitting Edema Degree: 3+ Capillary Refill: < 3 seconds Skin Temperature: Warm Peripheral Pulses: within normal limits - Abdominal General gastrointestinal: soft, non-tender, hypoactive bowel sounds - Integumentary Integumentary: Present: warm, dry, erythema - Psychiatric Psychiatric: other (Intubated and sedated) - Neurologic Neurologic: other (Intubated and sedated) - Allied Health Allied health notes reviewed: nursing Results - Labs CBC & Chem 7: 04/10/21 04:45 04/10/21 04:45 Labs: Laboratory Last Values WBC 18.0 K/mm3 (4.5-11.0) H 04/10/21 04:45 RBC 2.65 M/mm3 (3.65-5.03) L 04/10/21 04:45 Hgb 7.4 gm/dl (10.1-14.3) L 04/10/21 04:45 Hct 23.3 % (30.3-42.9) L 04/10/21 04:45 MCV 88 fl (79-97) 04/10/21 04:45 MCH 28 pg (28-32) 04/10/21 04:45 MCHC 32 % (30-34) 04/10/21 04:45 RDW 18.5 % (13.2-15.2) H 04/10/21 04:45 Plt Count 211 K/mm3 (140-440) 04/10/21 04:45 Lymph % (Auto) 10.7 % (13.4-35.0) L 03/28/21 09:37 Johnson % (Auto) 5.2 % (0.0-7.3) 03/28/21 09:37 Eos % (Auto) Vessel Engineer 04/07/21 03:50 Baso % (Auto) 0.2 % (0.0-1.8) 03/28/21 09:37 Lymph # (Auto) 1.7 K/mm3 (1.2-5.4) 03/28/21 09:37 Johnson # (Auto) 0.9 K/mm3 (0.0-0.8) H 03/28/21 09:37 Eos # (Auto) 0.6 K/mm3 (0.0-0.4) H 03/28/21 09:37 Baso # (Auto) 0.0 K/mm3 (0.0-0.1) 03/28/21 09:37 Add Manual Diff Complete 04/07/21 03:50 Total Counted 100 04/07/21 03:50 Seg Neutrophils % 80.0 % (40.0-70.0) H 03/28/21 09:37 Seg Neuts % (Manual) 67.0 % (40.0-70.0) 04/07/21 03:50 Lymphocytes % (Manual) 10.0 % (13.4-35.0) L 04/07/21 03:50 Monocytes % (Manual) 4.0 % (0.0-7.3) 04/07/21 03:50 Eosinophils % (Manual) 19.0 % (0.0-4.3) H 04/07/21 03:50 Basophils % (Manual) 2.0 % (0.0-1.8) H 04/03/21 04:30 Nucleated RBC % 2.0 % (0.0-0.9) H 04/07/21 03:50 Seg Neutrophils # 13.0 K/mm3 (1.8-7.7) H 03/28/21 09:37 Seg Neutrophils # Man 17.9 K/mm3 (1.8-7.7) H 04/07/21 03:50 Band Neutrophils # 0.0 K/mm3 04/07/21 03:50 Lymphocytes # (Manual) 2.7 K/mm3 (1.2-5.4) 04/07/21 03:50 Abs React Lymphs (Man) 0.0 K/mm3 04/07/21 03:50 Monocytes # (Manual) 1.1 K/mm3 (0.0-0.8) H 04/07/21 03:50 Eosinophils # (Manual) 5.1 K/mm3 (0.0-0.4) H 04/07/21 03:50 Basophils # (Manual) 0.0 K/mm3 (0.0-0.1) 04/07/21 03:50 Metamyelocytes # 0.0 K/mm3 04/07/21 03:50 Myelocytes # 0.0 K/mm3 04/07/21 03:50 Promyelocytes # 0.0 K/mm3 04/07/21 03:50 Blast Cells # 0.0 K/mm3 04/07/21 03:50 WBC Morphology Not Reportable 04/07/21 03:50 Hypersegmented Neuts Not Reportable 04/07/21 03:50 Hyposegmented Neuts Not Reportable 04/07/21 03:50 Hypogranular Neuts Not Reportable 04/07/21 03:50 Smudge Cells Not Reportable 04/07/21 03:50 Toxic Granulation Not Reportable 04/07/21 03:50 Toxic Vacuolation Not Reportable 04/07/21 03:50 Dohle Bodies Not Reportable 04/07/21 03:50 Pelger-Huet Anomaly Not Reportable 04/07/21 03:50 Bridgette Rods Not Reportable 04/07/21 03:50 Platelet Estimate Consistent w auto 04/07/21 03:50 Clumped Platelets Not Reportable 04/07/21 03:50 Plt Clumps, EDTA Not Reportable 04/07/21 03:50 Large Platelets Not Reportable 04/07/21 03:50 Giant Platelets Not Reportable 04/07/21 03:50 Platelet Satelliting Not Reportable 04/07/21 03:50 Plt Morphology Comment Not Reportable 04/07/21 03:50 RBC Morphology Not Reportable 04/07/21 03:50 Dimorphic RBCs Not Reportable 04/07/21 03:50 Polychromasia Not Reportable 04/07/21 03:50 Hypochromasia Not Reportable 04/07/21 03:50 Poikilocytosis Not Reportable 04/07/21 03:50 Anisocytosis 1+ 04/07/21 03:50 Microcytosis Not Reportable 04/07/21 03:50 Macrocytosis Not Reportable 04/07/21 03:50 Spherocytes Not Reportable 04/07/21 03:50 Pappenheimer Bodies Not Reportable 04/07/21 03:50 Sickle Cells Not Reportable 04/07/21 03:50 Target Cells 1+ 04/07/21 03:50 Tear Drop Cells Not Reportable 04/07/21 03:50 Ovalocytes Not Reportable 04/07/21 03:50 Helmet Cells Not Reportable 04/07/21 03:50 [place] Bodies Not Reportable 04/07/21 03:50 [place] Rings Not Reportable 04/07/21 03:50 [place] Cells Not Reportable 04/07/21 03:50 Bite Cells Not Reportable 04/07/21 03:50 Crenated Cell Not Reportable 04/07/21 03:50 Elliptocytes Not Reportable 04/07/21 03:50 Acanthocytes (Spur) Not Reportable 04/07/21 03:50 Rouleaux Not Reportable 04/07/21 03:50 Hemoglobin C Crystals Not Reportable 04/07/21 03:50 Schistocytes Not Reportable 04/07/21 03:50 Malaria parasites Not Reportable 04/07/21 03:50 Percent Retic 4.52 % (0.78-2.58) H 03/31/21 09:49 Vaibhav Bodies Not Reportable 04/07/21 03:50 Hem Pathologist Commnt No 04/07/21 03:50 PT 13.9 Sec. (12.2-14.9) 04/04/21 07:55 INR 0.96 (0.87-1.13) 04/04/21 07:55 APTT 28.9 Sec. (24.2-36.6) 04/04/21 07:55 Fibrinogen 455 mg/dl (211-480) 04/07/21 03:50 D-Dimer 2696.79 ng/mlDDU (0-234) H 04/08/21 04:40 Heparin Anti-Xa, Unfract TNR 03/22/21 08:20 ABG pH 7.192 (7.320-7.450) L 04/09/21 21:00 POC ABG pCO2 63.4 mmHg (32.0-48.0) H 04/09/21 21:00 ABG pCO2 83.8 mm Hg 04/08/21 09:55 POC ABG pO2 83.0 mmHg (83-108) 04/09/21 21:00 ABG pO2 75.9 mm Hg (80.0-90.0) L 04/08/21 09:55 POC ABG HCO3 23.8 04/09/21 21:00 ABG HCO3 26.2 mmol/L (20.0-26.0) H 04/08/21 09:55 ABG O2 Saturation 94.0 (0-100) 04/09/21 21:00 ABG O2 Content 10.2 (0.0-44) 04/08/21 09:55 POC ABG Base Excess -4.6 04/09/21 21:00 ABG Base Excess -3.6 mmol/L (-2.0-3.0) L 04/08/21 09:55 ABG Hemoglobin 8.7 (12.0-17.5) L 04/09/21 21:00 ABG Oxyhemoglobin 92.9 (94-98) L 04/09/21 21:00 ABG Carboxyhemoglobin 2.2 % (0.0-5.0) 04/08/21 09:55 ABG Methemoglobin 0.3 (0.0-1.5) 04/09/21 21:00 ABG Sodium 135.1 mmol/L (136.0-145.0) L 04/09/21 21:00 ABG Potassium 4.2 mmol/L (3.40-4.50) 04/09/21 21:00 ABG Chloride 102.0 mmol/L (98-107) 04/09/21 21:00 ABG Glucose 208 mg/dL (65-95) H 04/09/21 21:00 ABG Lactate Cancelled 04/03/21 20:45 Oxyhemoglobin 88.0 % (95.0-99.0) L 04/08/21 09:55 Carboxyhemoglobin 0.9 (0.5-1.5) 04/09/21 21:00 FiO2 60 % 04/08/21 09:55 FiO2 % 60.0 04/09/21 21:00 Sodium 137 mmol/L (137-145) 04/10/21 04:45 Potassium 5.5 mmol/L (3.6-5.0) H 04/10/21 04:45 Chloride 98.5 mmol/L (98-107) 04/10/21 04:45 Carbon Dioxide 21 mmol/L (22-30) L 04/10/21 04:45 Anion Gap 23 mmol/L 04/10/21 04:45 BUN 83 mg/dL (7-17) H 04/10/21 04:45 Creatinine 3.4 mg/dL (0.6-1.2) H 04/10/21 04:45 Estimated GFR 19 ml/min 04/10/21 04:45 BUN/Creatinine Ratio 24 % 04/10/21 04:45 Glucose 211 mg/dL (65-100) H 04/10/21 04:45 POC Glucose 183 mg/dL (70-105) H 04/10/21 05:01 Hemoglobin A1c 6.3 % (4-6) H 03/15/21 05:09 Lactic Acid 0.80 mmol/L (0.7-2.0) 04/07/21 03:50 Calcium 8.7 mg/dL (8.4-10.2) 04/10/21 04:45 Phosphorus 9.30 mg/dL (2.5-4.5) H 04/08/21 04:00 Magnesium 2.00 mg/dL (1.7-2.3) 04/08/21 04:00 Ferritin 151.6 ng/mL (10.0-200.0) 03/18/21 04:30 Total Bilirubin 0.80 mg/dL (0.1-1.2) 04/07/21 04:00 Bilirubin Cancelled 04/03/21 20:45 AST 38 units/L (5-40) 04/07/21 04:00 ALT 38 units/L (7-56) 04/07/21 04:00 Alkaline Phosphatase 167 units/L (35-129) H 04/07/21 04:00 Lactate Dehydrogenase 394 units/L (91-180) H 04/05/21 05:20 C-Reactive Protein 26.10 mg/dL (0.00-1.30) H 04/08/21 04:00 Total Protein 6.6 g/dL (6.3-8.2) 04/07/21 04:00 Albumin 2.8 g/dL (3.9-5) L 04/07/21 04:00 Albumin/Globulin Ratio 0.7 % 04/07/21 04:00 Triglycerides 487 mg/dL (2-149) H 04/08/21 04:00 Serotonin Release Assay TNR 03/22/21 08:20 Procalcitonin < 0.05 ng/mL (<0.15) 03/13/21 15:40 HCG, Qual Negative (Negative) 03/13/21 13:26 Arterial Blood Glucose 208 mg/dL (65-95) H 04/09/21 21:00 Arterial Blood Ionized Calcium 4.3 mg/dL (4.6-5.3) L 04/08/21 20:53 Urine Color Sweta (Yellow) 04/06/21 Unknown Urine Turbidity Cloudy (Clear) 04/06/21 Unknown Urine pH 5.0 (5.0-7.0) 04/06/21 Unknown Ur Specific [place] 1.020 (1.003-1.030) 04/06/21 Unknown Urine Protein 100 mg/dl mg/dL (Negative) 04/06/21 Unknown Urine Glucose (UA) Neg mg/dL (Negative) 04/06/21 Unknown Urine Ketones Neg mg/dL (Negative) 04/06/21 Unknown Urine Blood Mod (Negative) 04/06/21 Unknown Urine Nitrite Neg (Negative) 04/06/21 Unknown Urine Bilirubin Neg (Negative) 04/06/21 Unknown Urine Urobilinogen < 2.0 mg/dL (<2.0) 04/06/21 Unknown Ur Leukocyte Esterase Neg (Negative) 04/06/21 Unknown Urine WBC (Auto) 148.0 /HPF (0.0-6.0) H 04/06/21 Unknown Urine RBC (Auto) > 182.0 /HPF (0.0-6.0) 04/06/21 Unknown U Epithel Cells (Auto) 102.0 /HPF (0-13.0) H 04/06/21 Unknown Urine Bacteria (Auto) 1+ /HPF (Negative) 04/06/21 Unknown Ur Renal Epithelial Cell 151 /LPF 04/06/21 Unknown Urine Mucus Few /HPF 04/06/21 Unknown Urine Yeast (Budding) 3+ /HPF 04/06/21 Unknown Urine Creatinine 40.1 mg/dL (0.1-20.0) H 03/14/21 17:50 Urine Sodium 124 mmol/L 03/14/21 17:50 Random Vancomycin 10.3 ug/mL (0-40.0) 04/10/21 04:45 Heparin-induced Plt Ab Negative (Negative) 03/22/21 08:20 UF Heparin High Dose TNR 03/22/21 08:20 JUAN UFH Low Dose 0.1 TNR 03/22/21 08:20 JUAN UFH Low Dose 0.5 TNR 03/22/21 08:20 Coronavirus (PCR) Negative (Negative) 04/04/21 09:00 Hepatitis A IgM Ab Non-reactive (NonReactive) 03/15/21 05:09 Hep Bs Antigen Nonreactive (Negative) 03/15/21 05:09 Hep B Core IgM Ab Non-reactive (NonReactive) 03/15/21 05:09 Hepatitis C Antibody Non-reactive (NonReactive) 03/15/21 05:09 Schistocytes Smear None seen 03/31/21 12:11 Blood Type O POSITIVE 04/08/21 13:55 Antibody Screen Negative 04/08/21 13:55 Direct Antiglob Test Negative 03/31/21 23:18 NIKOLE, Poly Interpret Negative 03/31/21 23:18 Crossmatch See Detail 04/08/21 13:55 Microbiology: Microbiology 04/09/21 23:23 Peripheral/Venous Blood Fungal Culture - Preliminary Culture in Progress 04/09/21 23:23 Peripheral/Venous Blood Fungal Culture - Preliminary Culture in Progress 04/06/21 16:46 Peripheral/Venous Blood Culture - Preliminary NO GROWTH AFTER 72 HOURS 04/06/21 17:00 Peripheral/Venous Blood Culture - Preliminary NO GROWTH AFTER 72 HOURS 04/07/21 13:41 Urine,Catheterized - Indwelling Catheter Urine Culture - Final NO GROWTH AFTER 48 HOURS Bazan/IV: Voiding Method Toilet Active Medications - Current Medications Current Medications: Generic Name Dose Route Start Last Admin Trade Name Freq PRN Reason Stop Dose Admin Acetaminophen 650 mg 03/31/21 12:41 04/08/21 23:15 Acetaminophen 325 Mg/10.15 Ml Oral Liqd Unit Dose FEEDTUBE 650 mg Q6H PRN Administration TEMP >/=100.4 Albumin Human 25 gm 04/01/21 08:19 04/01/21 16:23 Albumin Human 25% (25 Gm/100 Ml) Inj IV 25 gm KARLOS PRN Administration Hypotension Albuterol 2.5 mg 03/19/21 00:53 Albuterol 2.5 Mg/3 Ml Nebu IH Q4HRT PRN Shortness Of Breath Albuterol/Ipratropium 1 ampul 03/19/21 08:00 04/10/21 09:05 Ipratropium/Albuterol Sulfate 3 Ml Ampul.Neb IH 1 ampul Q6HRT INESSA Administration Lipase/Protease/Amylase 1 each 04/09/21 17:17 Lipase 10,500/Protease 25,000/Amylase 43,750 (Units) Dr Cap FEEDTUBE PRN PRN For Clogged Feeding Tube Apixaban 2.5 mg 03/29/21 13:00 04/10/21 09:59 Apixaban 2.5 Mg Tab PO 2.5 mg Q12HR INESSA Administration Protocol Ascorbic Acid 500 mg 03/14/21 22:00 04/10/21 09:59 Ascorbic Acid 500 Mg Tab PO 500 mg BID INESSA Administration Calcium Acetate 1,334 mg 04/03/21 20:00 04/10/21 08:08 Calcium Acetate 667 Mg Cap FEEDTUBE 1,334 mg TID INESSA Administration Dextrose 50 ml 03/14/21 11:02 03/15/21 11:40 Dextrose 50% In Water (25gm) 50 Ml Syringe IV 50 ml Q30MIN PRN Administration Hypoglycemia Protocol Famotidine 10 mg 03/17/21 22:00 04/10/21 09:59 Famotidine 10 Mg Tab PO 10 mg BID INESSA Administration Fentanyl 50 mcg 03/15/21 10:43 04/05/21 21:32 Fentanyl 100 Mcg/2 Ml Inj IV 50 mcg Q10MIN PRN Administration ANALGESIA Hydrocortisone Sodium Succinate 100 mg 04/10/21 00:00 04/10/21 08:08 Hydrocortisone Sod Succ 100 Mg/2 Ml Vial IV 100 mg Q8H INESSA Administration Hydromorphone HCl 1 mg 04/06/21 11:32 04/06/21 17:01 Hydromorphone 1 Mg/1 Ml Inj IV 04/13/21 11:31 1 mg Q4H PRN Administration Pain , Severe (7-10) Hydrophilic Ointment 1 applic 03/14/21 17:50 Lip Therapy Vaseline TP Q2HR PRN Dry Lips Fentanyl Citrate 2,000 mcg in 100 mls @ 6.872 mls/hr 03/15/21 11:00 04/10/21 10:02 Fentanyl Drip Premix IV 4 mcg/kg/hr TITR INESSA 27.488 mls/hr Administration Protocol 1 MCG/KG/HR Sodium Chloride 500 mls @ 1 mls/hr 03/16/21 17:19 Nacl 0.9% 500 Ml IV DIRECT PRN ARTERIAL LINE FLUSH NORepinephrine/NS 8 MG-250 ML 8 mg in 250 mls @ 3.75 mls/hr 03/23/21 11:00 04/10/21 09:29 Norepinephrine/Ns 8 Mg-250 Ml (Double Conc) IV 6 mcg/min TITRATE INESSA 11.25 mls/hr Administration Protocol 2 MCG/MIN Midazolam HCl 100 mg/ Sodium 100 mls @ 1 mls/hr 03/30/21 15:00 04/10/21 07:34 Chloride IV 6 mg/hr TITR INESSA 6 mls/hr Administration Protocol 1 MG/HR Vasopressin 20 unit/ Sodium 101 mls @ 9.09 mls/hr 03/30/21 20:00 04/10/21 02:23 Chloride IV 0.03 units/min TITR INESSA 9.09 mls/hr Administration 0.03 UNITS/MIN Phenylephrine HCl 100 mg/ 100 mls @ 3 mls/hr 03/31/21 04:00 04/06/21 07:58 Sodium Chloride IV 0 mcg/min TITR INESSA 0 mls/hr Titration Protocol 50 MCG/MIN Sodium Chloride 100 mls @ 999 mls/hr 04/01/21 08:19 Nacl 0.9% IV KARLOS PRN Hypotension Sodium Bicarbonate 150 meq/ 1,150 mls @ 75 mls/hr 04/02/21 22:00 04/07/21 16:21 Dextrose IV Infused DIRECT INESSA Infusion Levofloxacin/Dextrose 750 mg in 150 mls @ 100 mls/hr 04/06/21 14:30 04/08/21 14:19 Levaquin 750mg/150ml IV 100 mls/hr Q48H INESSA Administration Protocol Propofol 1,000 mg in 100 mls @ 4.26 mls/hr 04/07/21 13:00 04/10/21 02:22 Diprivan 10 Mg/Ml IV 10 mcg/kg/min TITR INESSA 8.52 mls/hr Administration Protocol 5 MCG/KG/MIN Meropenem 500 mg in 50 mls @ 50 mls/hr 04/08/21 11:00 04/10/21 10:00 Merrem/Ns 500 Mg/50 Ml IV 50 mls/hr Q12H INESSA Administration Micafungin Sodium 100 mg/ 100 mls @ 100 mls/hr 04/09/21 17:00 04/09/21 18:43 Sodium Chloride IV 100 mls/hr Q24H INESSA Administration Protocol Insulin Human Lispro 0 unit 03/14/21 12:00 04/10/21 05:50 Insulin Lispro 100 Unit/Ml SUB-Q 2 unit Q6HR INESSA Administration Protocol Lorazepam 1 mg 03/13/21 19:40 03/30/21 19:58 Lorazepam 2 Mg/Ml Vial IV 1 mg Q4H PRN Administration Anxiety Multi-Ingred Cream/Lotion/Oil/Oint 1 applic 03/14/21 17:50 04/02/21 14:31 Mineral Oil/Petrolatum, White Ophth Oint 3.5 Gm OU 1 applic Q4HR PRN Administration Dry Eye(s) Ondansetron HCl 4 mg 03/13/21 19:30 03/21/21 12:05 Ondansetron 4 Mg/2 Ml Inj IV 4 mg Q8H PRN Administration Nausea And Vomiting Quetiapine Fumarate 300 mg 04/06/21 22:00 04/10/21 09:59 Quetiapine 100 Mg Tab PO 300 mg BID INESSA Administration Senna/Docusate Sodium 1 tab 03/14/21 22:00 04/10/21 09:59 Sennosides/Docusate Sodium 8.6/50 Mg Tab FEEDTUBE 1 tab BID INESSA Administration Simple Syrup 15 ml 04/09/21 17:17 Simple Syrup 15 Ml FEEDTUBE PRN PRN Hypoglycemia Simple Syrup 30 ml 04/09/21 17:17 Simple Syrup 15 Ml FEEDTUBE PRN PRN Hypoglycemia Sodium Bicarbonate 325 mg 03/15/21 11:42 03/21/21 17:21 Sodium Bicarbonate 325 Mg Tab FEEDTUBE 325 mg PRN PRN Administration For Clogged Feeding Tube Sodium Bicarbonate 325 mg 04/09/21 17:17 Sodium Bicarbonate 325 Mg Tab FEEDTUBE PRN PRN For Clogged Feeding Tube Sodium Chloride 10 ml 03/13/21 22:00 04/10/21 10:00 Sodium Chloride 0.9% 10 Ml Flush Syringe IV 10 ml BID INESSA Administration Sodium Chloride 10 ml 03/13/21 19:30 Sodium Chloride 0.9% 10 Ml Flush Syringe IV PRN PRN LINE FLUSH Zinc Sulfate 220 mg 03/14/21 22:00 04/10/21 09:59 Zinc Sulfate 220 Mg Cap PO 220 mg BID INESSA Administration Nutrition/Malnutrition Assess - Dietary Evaluation Nutrition/Malnutrition Findings: Nutrition Notes Start: 03/15/21 11 :06 Freq: Status: Active Protocol: Document 04/09/21 16:52 CANDACE (Rec: 04/09/21 17:24 CANDACE [id number]) Nutrition Notes Initial or Follow up Reassessment Current Diagnosis Acute Kidney Injury, Hypertension,Respiratory Failure Other Pertinent Diagnosis [id number], Transaminitis, Hyperglycemia, Current Diet TF -Nepro w/CARBSTEADY (since D 03/15). Labs/Tests 04/09: Na 131, K 6.3, Cl 93.0, CO2 19, BUN 98, Crea 4.6, Glu 208, Ca 8.1. Pertinent Medications 04/09: Nutritionally unremarkable. Height 5 ft 5 in Weight 142 kg [place] Body Weight (kg) 56.81 BMI 52.0 Weight change and time frame 4.56 Kg body weight gain during last 7 days reported. Weight Status Morbidly Obese Subjective/Other Information RD consult for routine F/U on TF tolerance. Burn Absent Trauma Absent GI Symptoms None Food Allergy No Skin Integrity/Comment Clear, warm, dry. Current % PO Other Minimum of two criteria No Is patient on ventilator? Yes Is Patient Ambulatory and/or Out of Bed No REE-([facility]-confined to bed) 2570.232 Kcal/Kg value to use for calculation 14 Approximate Energy Requirements Using 1988 kcal/Kg Calculation Used for Recommendations Kcal/kg Additional Notes Pro needs >1.2g/kg adjBW: > 117g/day Fluid needs 1-1.5L/day Nutrition Intervention Nutrition Support: Continue Nepro w/CARBSTEADY @ 46 ml/hr. Flush: 198 ml water Q 4h Kcal 1,988 Protein (gm) 90 Carbohydrates (gm) 178 Fat (gm) 106 Fluid (mL) 803 Fiber (gm) 14 % RDI: 100% Kcal; 76% AA. Goal #1 Maintain body weight within +/ -3% of admission BWt during LOS. Goal #2 Reach and maintain acceptable chemistry lab values during LOS. Follow-Up By: 04/23/21 Additional Comments Continue monitoring TF tolerance, Hydration, and BM.
[2021-04-10] MEDS ORDERED: SODIUM CHLORIDE 0.9% 1000 ML 1,000 ML ONE (12:12)
--- NOTE | 2021-04-10 13:21 | Progress Note ---
Assessment and Plan Acute hypoxemic respiratory failure Acute asthma exacerbation Morbid obesity Crohn's disease Metabolic acidosis Acute kidney injury on HD Coronavirus infection Pneumonia (CAP) Oropharyngeal dysphagia Obesity Drug rash s/p steroids - continue to wean vasopressors for target MAP > 65 mmHg (currently on Norepinephrine and Vasopressin) -Continue with stress dose steroids - nephrology input appreciated; HD/UF for toxin and volume clearance - continue to wean supplemental oxygen to keep SpO2 88-90% - VAP bundle addressed, aspiration precautions HOB >30 - continue lung protective strategies - continue bronchodilators with pulmonary hygiene per RT - wean per pulmonary driven protocols otherwise - continue accuchecks with glycemic control per SSI (While critically ill target blood glucose of 140-180 mg/dL; avoid hypoglycemia) - sedation prn for target RASS 0 to -1 - avoid nephrotoxins, renally dose all medications - continue to avoid benzodiazepines, reduce the possibility of delirium - prn analgesia per CPOT score - Maintenance of sleep-wake cycle, avoid delirium - continue enteral nutritional support at goal rate as tolerated - Stress ulcer prophylaxis - PT/OT/ROM exercises - continue mobility, off loading, frequent turning per facility protocol for pressure ulcer prevention - Monitor hemodynamics closely - continue other care per attending / other consultants COVID SPECIFIC INTERVENTIONS - repeat COVID tests result negative CONDITION: CRITICAL PROGNOSIS: GUARDED CODE STATUS: FULL CODE The high probability of a clinically significant, sudden or life-threatening deterioration of the [respiratory, cardiovascular, renal & neurologic] system(s) required my full and direct attention, intervention and personal management. The aggregate critical care time was [35] minutes without overlap. Time includes spent on; [x] Data Review and interpretation [x] Patient assessment and monitoring of vital signs [x] Documentation [x] Medication orders and management Subjective Date of service: 04/10/21 Principal diagnosis: Ac hypoxemic resp failure; AE-Asthma; SAI; Crohn's; COVID- 19; Pneumonia Interval history: Patient is seen today for: Acute hypoxemic respiratory failure; AE-Asthma; SAI; Crohn's disease; COVID-19 infection; Pneumonia (CAP) Seen and examined at bedside; 24hour events reviewed; nursing and respiratory care staff consulted; no adverse overnight events reported to me; resting in bed; remains on MVS; remains on vasopressors; no emesis or overt aspiration. On going high grade fevers Objective Vital Signs - 12hr 04/10/21 04/10/21 04/10/21 01:31 01:45 02:01 Temperature Pulse Rate 114 H 117 H 119 H Pulse Rate [ Anterior Bilateral Throughout] Pulse Rate [ From Monitor] Respiratory 31 H 21 27 H Rate Respiratory Rate [Anterior Bilateral Throughout] Blood Pressure O2 Sat by Pulse 99 99 99 Oximetry 04/10/21 04/10/21 04/10/21 02:15 02:31 02:45 Temperature Pulse Rate 118 H 116 H 114 H Pulse Rate [ Anterior Bilateral Throughout] Pulse Rate [ From Monitor] Respiratory 30 H 31 H 19 Rate Respiratory Rate [Anterior Bilateral Throughout] Blood Pressure O2 Sat by Pulse 100 99 99 Oximetry 04/10/21 04/10/21 04/10/21 03:01 03:15 03:31 Temperature Pulse Rate 116 H 114 H 115 H Pulse Rate [ Anterior Bilateral Throughout] Pulse Rate [ From Monitor] Respiratory 26 H 24 30 H Rate Respiratory Rate [Anterior Bilateral Throughout] Blood Pressure O2 Sat by Pulse 98 99 98 Oximetry 04/10/21 04/10/21 04/10/21 03:41 03:45 03:55 Temperature 99.7 F H Pulse Rate 113 H 114 H Pulse Rate [ Anterior Bilateral Throughout] Pulse Rate [ From Monitor] Respiratory 24 Rate Respiratory Rate [Anterior Bilateral Throughout] Blood Pressure 106/58 O2 Sat by Pulse 98 97 Oximetry 04/10/21 04/10/21 04/10/21 04:00 04:01 04:15 Temperature Pulse Rate 119 H 119 H 119 H Pulse Rate [ Anterior Bilateral Throughout] Pulse Rate [ 119 H From Monitor] Respiratory 30 H 24 21 Rate Respiratory Rate [Anterior Bilateral Throughout] Blood Pressure O2 Sat by Pulse 97 99 99 Oximetry 04/10/21 04/10/21 04/10/21 04:31 04:45 05:01 Temperature Pulse Rate 116 H 116 H 117 H Pulse Rate [ Anterior Bilateral Throughout] Pulse Rate [ From Monitor] Respiratory 28 H 18 15 Rate Respiratory Rate [Anterior Bilateral Throughout] Blood Pressure O2 Sat by Pulse 99 99 100 Oximetry 04/10/21 04/10/21 04/10/21 05:15 05:31 05:45 Temperature Pulse Rate 113 H 117 H 115 H Pulse Rate [ Anterior Bilateral Throughout] Pulse Rate [ From Monitor] Respiratory 21 17 31 H Rate Respiratory Rate [Anterior Bilateral Throughout] Blood Pressure O2 Sat by Pulse 100 100 100 Oximetry 04/10/21 04/10/21 04/10/21 06:01 06:15 06:31 Temperature Pulse Rate 114 H 111 H 113 H Pulse Rate [ Anterior Bilateral Throughout] Pulse Rate [ From Monitor] Respiratory 22 30 H 30 H Rate Respiratory Rate [Anterior Bilateral Throughout] Blood Pressure O2 Sat by Pulse 100 100 100 Oximetry 04/10/21 04/10/21 04/10/21 06:45 07:01 07:09 Temperature 99.4 F Pulse Rate 115 H 114 H Pulse Rate [ Anterior Bilateral Throughout] Pulse Rate [ From Monitor] Respiratory 21 30 H Rate Respiratory Rate [Anterior Bilateral Throughout] Blood Pressure O2 Sat by Pulse 100 100 Oximetry 04/10/21 04/10/21 04/10/21 07:15 07:31 07:45 Temperature Pulse Rate 114 H 115 H 118 H Pulse Rate [ Anterior Bilateral Throughout] Pulse Rate [ From Monitor] Respiratory 30 H 20 20 Rate Respiratory Rate [Anterior Bilateral Throughout] Blood Pressure O2 Sat by Pulse 100 100 100 Oximetry 04/10/21 04/10/21 04/10/21 08:00 08:01 08:15 Temperature Pulse Rate 117 H 119 H 119 H Pulse Rate [ Anterior Bilateral Throughout] Pulse Rate [ 119 H From Monitor] Respiratory 18 18 13 Rate Respiratory Rate [Anterior Bilateral Throughout] Blood Pressure O2 Sat by Pulse 100 100 100 Oximetry 04/10/21 04/10/21 04/10/21 08:31 08:45 09:01 Temperature Pulse Rate 118 H 121 H 121 H Pulse Rate [ Anterior Bilateral Throughout] Pulse Rate [ From Monitor] Respiratory 12 12 13 Rate Respiratory Rate [Anterior Bilateral Throughout] Blood Pressure O2 Sat by Pulse 100 99 100 Oximetry 04/10/21 04/10/21 04/10/21 09:04 09:05 09:15 Temperature Pulse Rate 121 H 119 H Pulse Rate [ 119 H Anterior Bilateral Throughout] Pulse Rate [ From Monitor] Respiratory 20 Rate Respiratory 30 H Rate [Anterior Bilateral Throughout] Blood Pressure 113/59 O2 Sat by Pulse 100 100 Oximetry 04/10/21 04/10/21 04/10/21 09:31 09:45 10:01 Temperature Pulse Rate 120 H 121 H 123 H Pulse Rate [ Anterior Bilateral Throughout] Pulse Rate [ From Monitor] Respiratory 19 18 19 Rate Respiratory Rate [Anterior Bilateral Throughout] Blood Pressure O2 Sat by Pulse 100 99 100 Oximetry 04/10/21 04/10/21 04/10/21 10:15 10:31 10:45 Temperature Pulse Rate 124 H 127 H 127 H Pulse Rate [ Anterior Bilateral Throughout] Pulse Rate [ From Monitor] Respiratory 19 16 17 Rate Respiratory Rate [Anterior Bilateral Throughout] Blood Pressure O2 Sat by Pulse 99 98 97 Oximetry 04/10/21 04/10/21 04/10/21 11:01 11:15 11:31 Temperature Pulse Rate 128 H 128 H 127 H Pulse Rate [ Anterior Bilateral Throughout] Pulse Rate [ From Monitor] Respiratory 16 17 17 Rate Respiratory Rate [Anterior Bilateral Throughout] Blood Pressure O2 Sat by Pulse 96 96 93 Oximetry 04/10/21 04/10/21 04/10/21 11:45 12:00 12:01 Temperature Pulse Rate 127 H 126 H 126 H Pulse Rate [ Anterior Bilateral Throughout] Pulse Rate [ 126 H From Monitor] Respiratory 17 17 17 Rate Respiratory Rate [Anterior Bilateral Throughout] Blood Pressure O2 Sat by Pulse 93 92 92 Oximetry 04/10/21 12:15 Temperature Pulse Rate 127 H Pulse Rate [ Anterior Bilateral Throughout] Pulse Rate [ From Monitor] Respiratory 17 Rate Respiratory Rate [Anterior Bilateral Throughout] Blood Pressure O2 Sat by Pulse 90 Oximetry Constitutional: appears uncomfortable, other (morbidly obese female with no ventilator dyssynchrony, peeling skin rash, anarsaca) Eyes: non-icteric, other (scleral erythema / bleeding is improving) ENT: oropharynx moist, other (ETT 25 cm BALJINDER) Neck: supple, no lymphadenopathy, no JVD, other (large circumference) Effort: mildly labored Ascultation: Bilateral: diminished breath sounds, rhonchi Percussion: Bilateral: not dull Cardiovascular: regular rate and rhythm, other (S1,S2) Gastrointestinal: normoactive bowel sounds, soft, non-tender, non-distended (protuberant) Integumentary: rash ( ), other Extremities: no cyanosis, pulses normal, no ischemia or petechiae, anasarca Neurologic: pupils equal and round, other (sedated) Psychiatric: other (unable to assess) CBC and BMP: 04/12/21 04:30 04/12/21 04:30 ABG, PT/INR, D-dimer: ABG ABG pH 7.192 (7.320-7.450) L 04/09/21 21:00 POC ABG pCO2 63.4 mmHg (32.0-48.0) H 04/09/21 21:00 ABG pCO2 83.8 mm Hg 04/08/21 09:55 POC ABG pO2 83.0 mmHg (83-108) 04/09/21 21:00 ABG pO2 75.9 mm Hg (80.0-90.0) L 04/08/21 09:55 POC ABG HCO3 23.8 04/09/21 21:00 ABG O2 Saturation 94.0 (0-100) 04/09/21 21:00 PT/INR, D-dimer PT 13.9 Sec. (12.2-14.9) 04/04/21 07:55 INR 0.96 (0.87-1.13) 04/04/21 07:55 D-Dimer 2696.79 ng/mlDDU (0-234) H 04/08/21 04:40 Abnormal lab findings: Abnormal Labs 03/13/21 03/13/21 03/13/21 13:26 13:26 15:40 WBC RBC Hgb Hct MCH 27 L MCHC RDW 17.0 H Plt Count Lymph % (Auto) [place] # (Auto) Eos # (Auto) Seg Neutrophils % Lymphocytes % (Manual) Eosinophils % (Manual) Basophils % (Manual) Nucleated RBC % Seg Neutrophils # Seg Neutrophils # Man Lymphocytes # (Manual) Monocytes # (Manual) Eosinophils # (Manual) Basophils # (Manual) Percent Retic PT INR Fibrinogen D-Dimer ABG pH POC ABG pCO2 POC ABG pO2 ABG pO2 ABG HCO3 ABG O2 Saturation ABG Base Excess ABG Hemoglobin ABG Oxyhemoglobin ABG Sodium ABG Potassium ABG Chloride ABG Glucose Oxyhemoglobin Carboxyhemoglobin Sodium 136 L Potassium Chloride Carbon Dioxide BUN Creatinine Glucose 125 H 130 H POC Glucose Hemoglobin A1c Calcium Phosphorus Magnesium AST ALT Alkaline Phosphatase Lactate Dehydrogenase 235 H C-Reactive Protein 4.30 H Total Protein Albumin Triglycerides Arterial Blood Glucose Arterial Blood Ionized Calcium Urine WBC (Auto) U Epithel Cells (Auto) Urine Creatinine Random Vancomycin Coronavirus (PCR) Crossmatch 03/13/21 03/14/21 03/14/21 21:33 03:35 06:21 WBC 20.0 H RBC Hgb Hct MCH 27 L MCHC RDW 17.5 H Plt Count Lymph % (Auto) 7.8 L [place] # (Auto) 1.3 H Eos # (Auto) Seg Neutrophils % 85.4 H Lymphocytes % (Manual) Eosinophils % (Manual) Basophils % (Manual) Nucleated RBC % Seg Neutrophils # 17.1 H Seg Neutrophils # Man Lymphocytes # (Manual) Monocytes # (Manual) Eosinophils # (Manual) Basophils # (Manual) Percent Retic PT INR Fibrinogen D-Dimer ABG pH 7.323 L 7.234 L POC ABG pCO2 POC ABG pO2 ABG pO2 69.8 L ABG HCO3 ABG O2 Saturation 92.9 L 94.9 L ABG Base Excess -3.3 L -5.4 L ABG Hemoglobin ABG Oxyhemoglobin ABG Sodium ABG Potassium ABG Chloride ABG Glucose Oxyhemoglobin 91.2 L 93.2 L Carboxyhemoglobin Sodium Potassium Chloride Carbon Dioxide BUN Creatinine Glucose POC Glucose Hemoglobin A1c Calcium Phosphorus Magnesium AST ALT Alkaline Phosphatase Lactate Dehydrogenase C-Reactive Protein Total Protein Albumin Triglycerides Arterial Blood Glucose Arterial Blood Ionized Calcium Urine WBC (Auto) U Epithel Cells (Auto) Urine Creatinine Random Vancomycin Coronavirus (PCR) Crossmatch 03/14/21 03/14/21 03/14/21 06:21 07:47 11:21 WBC RBC Hgb Hct MCH MCHC RDW Plt Count Lymph % (Auto) [place] # (Auto) Eos # (Auto) Seg Neutrophils % Lymphocytes % (Manual) Eosinophils % (Manual) Basophils % (Manual) Nucleated RBC % Seg Neutrophils # Seg Neutrophils # Man Lymphocytes # (Manual) Monocytes # (Manual) Eosinophils # (Manual) Basophils # (Manual) Percent Retic PT INR Fibrinogen D-Dimer ABG pH POC ABG pCO2 POC ABG pO2 ABG pO2 ABG HCO3 ABG O2 Saturation ABG Base Excess ABG Hemoglobin ABG Oxyhemoglobin ABG Sodium ABG Potassium ABG Chloride ABG Glucose Oxyhemoglobin Carboxyhemoglobin Sodium 136 L 136 L Potassium 6.2 H* D 5.4 H Chloride Carbon Dioxide 21 L 21 L BUN Creatinine 1.5 H D 1.8 H Glucose 144 H 141 H POC Glucose 147 H Hemoglobin A1c Calcium Phosphorus Magnesium AST ALT Alkaline Phosphatase Lactate Dehydrogenase C-Reactive Protein Total Protein 8.7 H 9.2 H Albumin 3.8 L Triglycerides Arterial Blood Glucose Arterial Blood Ionized Calcium Urine WBC (Auto) U Epithel Cells (Auto) Urine Creatinine Random Vancomycin Coronavirus (PCR) Crossmatch 03/14/21 03/14/21 03/14/21 17:29 17:50 18:35 WBC RBC Hgb Hct MCH MCHC RDW Plt Count Lymph % (Auto) [place] # (Auto) Eos # (Auto) Seg Neutrophils % Lymphocytes % (Manual) Eosinophils % (Manual) Basophils % (Manual) Nucleated RBC % Seg Neutrophils # Seg Neutrophils # Man Lymphocytes # (Manual) Monocytes # (Manual) Eosinophils # (Manual) Basophils # (Manual) Percent Retic PT INR Fibrinogen D-Dimer ABG pH POC ABG pCO2 POC ABG pO2 ABG pO2 ABG HCO3 ABG O2 Saturation ABG Base Excess ABG Hemoglobin ABG Oxyhemoglobin ABG Sodium ABG Potassium ABG Chloride ABG Glucose Oxyhemoglobin Carboxyhemoglobin Sodium 135 L Potassium 6.4 H* Chloride Carbon Dioxide 15 L BUN 26 H Creatinine 3.4 H D Glucose 165 H POC Glucose 209 H Hemoglobin A1c Calcium Phosphorus Magnesium AST ALT Alkaline Phosphatase Lactate Dehydrogenase C-Reactive Protein Total Protein Albumin Triglycerides Arterial Blood Glucose Arterial Blood Ionized Calcium Urine WBC (Auto) U Epithel Cells (Auto) Urine Creatinine 40.1 H Random Vancomycin Coronavirus (PCR) Crossmatch 03/14/21 03/14/21 03/14/21 18:46 22:23 23:52 WBC RBC Hgb Hct MCH MCHC RDW Plt Count Lymph % (Auto) [place] # (Auto) Eos # (Auto) Seg Neutrophils % Lymphocytes % (Manual) Eosinophils % (Manual) Basophils % (Manual) Nucleated RBC % Seg Neutrophils # Seg Neutrophils # Man Lymphocytes # (Manual) Monocytes # (Manual) Eosinophils # (Manual) Basophils # (Manual) Percent Retic PT INR Fibrinogen D-Dimer ABG pH 7.270 L POC ABG pCO2 POC ABG pO2 63.4 L ABG pO2 ABG HCO3 ABG O2 Saturation ABG Base Excess ABG Hemoglobin ABG Oxyhemoglobin 90.2 L ABG Sodium 134.9 L ABG Potassium 5.3 H ABG Chloride ABG Glucose 134 H Oxyhemoglobin Carboxyhemoglobin Sodium 136 L Potassium 5.2 H Chloride Carbon Dioxide 20 L BUN 29 H Creatinine 3.6 H Glucose 236 H POC Glucose 128 H Hemoglobin A1c Calcium Phosphorus Magnesium AST ALT Alkaline Phosphatase Lactate Dehydrogenase C-Reactive Protein Total Protein Albumin 3.2 L Triglycerides Arterial Blood Glucose 134 H Arterial Blood Ionized Calcium Urine WBC (Auto) U Epithel Cells (Auto) Urine Creatinine Random Vancomycin Coronavirus (PCR) Crossmatch 03/14/21 03/15/21 03/15/21 Unknown 05:00 05:09 WBC 22.5 H RBC Hgb Hct MCH 27 L MCHC RDW 17.6 H Plt Count Lymph % (Auto) [place] # (Auto) Eos # (Auto) Seg Neutrophils % Lymphocytes % (Manual) Eosinophils % (Manual) Basophils % (Manual) Nucleated RBC % Seg Neutrophils # Seg Neutrophils # Man Lymphocytes # (Manual) Monocytes # (Manual) Eosinophils # (Manual) Basophils # (Manual) Percent Retic PT INR Fibrinogen D-Dimer ABG pH POC ABG pCO2 POC ABG pO2 ABG pO2 ABG HCO3 ABG O2 Saturation ABG Base Excess ABG Hemoglobin ABG Oxyhemoglobin ABG Sodium ABG Potassium ABG Chloride ABG Glucose Oxyhemoglobin Carboxyhemoglobin Sodium Potassium Chloride Carbon Dioxide BUN Creatinine Glucose POC Glucose 116 H Hemoglobin A1c Calcium Phosphorus Magnesium AST ALT Alkaline Phosphatase Lactate Dehydrogenase C-Reactive Protein Total Protein Albumin Triglycerides Arterial Blood Glucose Arterial Blood Ionized Calcium Urine WBC (Auto) U Epithel Cells (Auto) Urine Creatinine Random Vancomycin Coronavirus (PCR) Positive A Crossmatch 03/15/21 03/15/21 03/15/21 05:09 05:09 05:09 WBC RBC Hgb Hct MCH MCHC RDW Plt Count Lymph % (Auto) [place] # (Auto) Eos # (Auto) Seg Neutrophils % Lymphocytes % (Manual) Eosinophils % (Manual) Basophils % (Manual) Nucleated RBC % Seg Neutrophils # Seg Neutrophils # Man Lymphocytes # (Manual) Monocytes # (Manual) Eosinophils # (Manual) Basophils # (Manual) Percent Retic PT INR Fibrinogen D-Dimer ABG pH POC ABG pCO2 POC ABG pO2 ABG pO2 ABG HCO3 ABG O2 Saturation ABG Base Excess ABG Hemoglobin ABG Oxyhemoglobin ABG Sodium ABG Potassium ABG Chloride ABG Glucose Oxyhemoglobin Carboxyhemoglobin Sodium 136 L Potassium 6.5 H* D Chloride Carbon Dioxide 17 L BUN 41 H Creatinine 5.3 H Glucose 128 H POC Glucose Hemoglobin A1c 6.3 H Calcium Phosphorus Magnesium AST ALT Alkaline Phosphatase Lactate Dehydrogenase C-Reactive Protein 12.10 H Total Protein Albumin 3.1 L Triglycerides Arterial Blood Glucose Arterial Blood Ionized Calcium Urine WBC (Auto) U Epithel Cells (Auto) Urine Creatinine Random Vancomycin Coronavirus (PCR) Crossmatch 03/15/21 03/15/21 03/15/21 10:00 21:50 23:39 WBC RBC Hgb Hct MCH MCHC RDW Plt Count Lymph % (Auto) [place] # (Auto) Eos # (Auto) Seg Neutrophils % Lymphocytes % (Manual) Eosinophils % (Manual) Basophils % (Manual) Nucleated RBC % Seg Neutrophils # Seg Neutrophils # Man Lymphocytes # (Manual) Monocytes # (Manual) Eosinophils # (Manual) Basophils # (Manual) Percent Retic PT INR Fibrinogen D-Dimer ABG pH 7.098 L POC ABG pCO2 72.7 H POC ABG pO2 ABG pO2 162.5 H ABG HCO3 ABG O2 Saturation ABG Base Excess ABG Hemoglobin 10.1 L ABG Oxyhemoglobin ABG Sodium ABG Potassium 5.7 H ABG Chloride ABG Glucose Oxyhemoglobin Carboxyhemoglobin 0.4 L Sodium Potassium Chloride Carbon Dioxide BUN Creatinine Glucose POC Glucose 156 H Hemoglobin A1c Calcium Phosphorus Magnesium AST ALT Alkaline Phosphatase Lactate Dehydrogenase C-Reactive Protein Total Protein Albumin Triglycerides Arterial Blood Glucose Arterial Blood Ionized Calcium Urine WBC (Auto) U Epithel Cells (Auto) Urine Creatinine Random Vancomycin Coronavirus (PCR) Crossmatch 03/16/21 03/16/21 03/16/21 05:00 05:30 05:30 WBC 16.7 H RBC 3.59 L Hgb 9.6 L Hct 30.1 L MCH 27 L MCHC RDW 17.5 H Plt Count Lymph % (Auto) [place] # (Auto) Eos # (Auto) Seg Neutrophils % Lymphocytes % (Manual) Eosinophils % (Manual) Basophils % (Manual) Nucleated RBC % Seg Neutrophils # Seg Neutrophils # Man Lymphocytes # (Manual) Monocytes # (Manual) Eosinophils # (Manual) Basophils # (Manual) Percent Retic PT INR Fibrinogen D-Dimer ABG pH POC ABG pCO2 POC ABG pO2 ABG pO2 ABG HCO3 ABG O2 Saturation ABG Base Excess ABG Hemoglobin ABG Oxyhemoglobin ABG Sodium ABG Potassium ABG Chloride ABG Glucose Oxyhemoglobin Carboxyhemoglobin Sodium Potassium Chloride Carbon Dioxide BUN 46 H Creatinine 6.2 H Glucose 131 H POC Glucose Hemoglobin A1c Calcium Phosphorus 6.00 H D Magnesium AST ALT Alkaline Phosphatase Lactate Dehydrogenase 318 H C-Reactive Protein 18.60 H Total Protein Albumin 3.0 L Triglycerides Arterial Blood Glucose Arterial Blood Ionized Calcium Urine WBC (Auto) U Epithel Cells (Auto) Urine Creatinine Random Vancomycin Coronavirus (PCR) Crossmatch 03/16/21 03/16/21 03/16/21 05:51 06:37 08:58 WBC RBC Hgb Hct MCH MCHC RDW Plt Count Lymph % (Auto) [place] # (Auto) Eos # (Auto) Seg Neutrophils % Lymphocytes % (Manual) Eosinophils % (Manual) Basophils % (Manual) Nucleated RBC % Seg Neutrophils # Seg Neutrophils # Man Lymphocytes # (Manual) Monocytes # (Manual) Eosinophils # (Manual) Basophils # (Manual) Percent Retic PT INR Fibrinogen D-Dimer 3041.12 H ABG pH POC ABG pCO2 POC ABG pO2 ABG pO2 141.5 H ABG HCO3 ABG O2 Saturation ABG Base Excess ABG Hemoglobin 9.7 L ABG Oxyhemoglobin ABG Sodium ABG Potassium ABG Chloride ABG Glucose Oxyhemoglobin Carboxyhemoglobin Sodium Potassium Chloride Carbon Dioxide BUN Creatinine Glucose POC Glucose 126 H Hemoglobin A1c Calcium Phosphorus Magnesium AST ALT Alkaline Phosphatase Lactate Dehydrogenase C-Reactive Protein Total Protein Albumin Triglycerides Arterial Blood Glucose Arterial Blood Ionized Calcium Urine WBC (Auto) U Epithel Cells (Auto) Urine Creatinine Random Vancomycin Coronavirus (PCR) Crossmatch 03/16/21 03/16/21 03/16/21 12:11 16:51 21:00 WBC RBC Hgb Hct MCH MCHC RDW Plt Count Lymph % (Auto) [place] # (Auto) Eos # (Auto) Seg Neutrophils % Lymphocytes % (Manual) Eosinophils % (Manual) Basophils % (Manual) Nucleated RBC % Seg Neutrophils # Seg Neutrophils # Man Lymphocytes # (Manual) Monocytes # (Manual) Eosinophils # (Manual) Basophils # (Manual) Percent Retic PT INR Fibrinogen D-Dimer ABG pH 7.239 L POC ABG pCO2 61.5 H POC ABG pO2 80.8 L ABG pO2 ABG HCO3 ABG O2 Saturation ABG Base Excess ABG Hemoglobin 11.4 L ABG Oxyhemoglobin 93.5 L ABG Sodium ABG Potassium 5.4 H ABG Chloride ABG Glucose 137 H Oxyhemoglobin Carboxyhemoglobin 0.2 L Sodium Potassium Chloride Carbon Dioxide BUN Creatinine Glucose POC Glucose 156 H 133 H Hemoglobin A1c Calcium Phosphorus Magnesium AST ALT Alkaline Phosphatase Lactate Dehydrogenase C-Reactive Protein Total Protein Albumin Triglycerides Arterial Blood Glucose 137 H Arterial Blood Ionized Calcium Urine WBC (Auto) U Epithel Cells (Auto) Urine Creatinine Random Vancomycin Coronavirus (PCR) Crossmatch 03/16/21 03/17/21 03/17/21 23:42 05:23 05:23 WBC 18.4 H RBC Hgb Hct MCH 27 L MCHC RDW 17.4 H Plt Count Lymph % (Auto) [place] # (Auto) Eos # (Auto) Seg Neutrophils % Lymphocytes % (Manual) Eosinophils % (Manual) Basophils % (Manual) Nucleated RBC % Seg Neutrophils # Seg Neutrophils # Man Lymphocytes # (Manual) Monocytes # (Manual) Eosinophils # (Manual) Basophils # (Manual) Percent Retic PT INR Fibrinogen D-Dimer ABG pH POC ABG pCO2 POC ABG pO2 ABG pO2 ABG HCO3 ABG O2 Saturation ABG Base Excess ABG Hemoglobin ABG Oxyhemoglobin ABG Sodium ABG Potassium ABG Chloride ABG Glucose Oxyhemoglobin Carboxyhemoglobin Sodium Potassium 5.2 H Chloride Carbon Dioxide 21 L BUN 79 H Creatinine 8.6 H Glucose 124 H POC Glucose 133 H Hemoglobin A1c Calcium Phosphorus Magnesium AST ALT Alkaline Phosphatase Lactate Dehydrogenase C-Reactive Protein Total Protein Albumin 3.2 L Triglycerides 285 H Arterial Blood Glucose Arterial Blood Ionized Calcium Urine WBC (Auto) U Epithel Cells (Auto) Urine Creatinine Random Vancomycin Coronavirus (PCR) Crossmatch 03/17/21 03/17/21 03/17/21 05:23 10:48 12:20 WBC RBC Hgb Hct MCH MCHC RDW Plt Count Lymph % (Auto) [place] # (Auto) Eos # (Auto) Seg Neutrophils % Lymphocytes % (Manual) Eosinophils % (Manual) Basophils % (Manual) Nucleated RBC % Seg Neutrophils # Seg Neutrophils # Man Lymphocytes # (Manual) Monocytes # (Manual) Eosinophils # (Manual) Basophils # (Manual) Percent Retic PT INR Fibrinogen D-Dimer ABG pH 7.294 L POC ABG pCO2 POC ABG pO2 ABG pO2 90.3 H ABG HCO3 ABG O2 Saturation ABG Base Excess ABG Hemoglobin 9.9 L ABG Oxyhemoglobin ABG Sodium ABG Potassium ABG Chloride ABG Glucose Oxyhemoglobin Carboxyhemoglobin Sodium Potassium 5.2 H Chloride Carbon Dioxide 21 L BUN 79 H Creatinine 8.4 H Glucose 125 H POC Glucose 171 H Hemoglobin A1c Calcium Phosphorus 9.90 H D Magnesium 2.40 H AST ALT Alkaline Phosphatase Lactate Dehydrogenase C-Reactive Protein Total Protein Albumin Triglycerides Arterial Blood Glucose Arterial Blood Ionized Calcium Urine WBC (Auto) U Epithel Cells (Auto) Urine Creatinine Random Vancomycin Coronavirus (PCR) Crossmatch 03/17/21 03/17/21 03/18/21 17:24 21:00 04:30 WBC RBC Hgb Hct MCH MCHC RDW Plt Count Lymph % (Auto) [place] # (Auto) Eos # (Auto) Seg Neutrophils % Lymphocytes % (Manual) Eosinophils % (Manual) Basophils % (Manual) Nucleated RBC % Seg Neutrophils # Seg Neutrophils # Man Lymphocytes # (Manual) Monocytes # (Manual) Eosinophils # (Manual) Basophils # (Manual) Percent Retic PT INR Fibrinogen D-Dimer 9953.09 H ABG pH 7.310 L POC ABG pCO2 54.5 H POC ABG pO2 62.3 L ABG pO2 ABG HCO3 ABG O2 Saturation ABG Base Excess ABG Hemoglobin 10.2 L ABG Oxyhemoglobin 88.6 L ABG Sodium ABG Potassium 4.7 H ABG Chloride ABG Glucose 99 H Oxyhemoglobin Carboxyhemoglobin 0.3 L Sodium Potassium Chloride Carbon Dioxide BUN Creatinine Glucose POC Glucose 121 H Hemoglobin A1c Calcium Phosphorus Magnesium AST ALT Alkaline Phosphatase Lactate Dehydrogenase C-Reactive Protein Total Protein Albumin Triglycerides Arterial Blood Glucose 99 H Arterial Blood Ionized Calcium 4.3 L Urine WBC (Auto) U Epithel Cells (Auto) Urine Creatinine Random Vancomycin Coronavirus (PCR) Crossmatch 03/18/21 03/18/21 03/18/21 04:30 04:30 11:34 WBC 12.8 H RBC 3.49 L Hgb 9.4 L Hct 29.3 L MCH 27 L MCHC RDW 17.4 H Plt Count Lymph % (Auto) [place] # (Auto) Eos # (Auto) Seg Neutrophils % Lymphocytes % (Manual) Eosinophils % (Manual) Basophils % (Manual) Nucleated RBC % Seg Neutrophils # Seg Neutrophils # Man Lymphocytes # (Manual) Monocytes # (Manual) Eosinophils # (Manual) Basophils # (Manual) Percent Retic PT INR Fibrinogen D-Dimer ABG pH POC ABG pCO2 POC ABG pO2 ABG pO2 ABG HCO3 ABG O2 Saturation ABG Base Excess ABG Hemoglobin ABG Oxyhemoglobin ABG Sodium ABG Potassium ABG Chloride ABG Glucose Oxyhemoglobin Carboxyhemoglobin Sodium Potassium Chloride Carbon Dioxide BUN 69 H Creatinine 7.3 H Glucose POC Glucose 114 H Hemoglobin A1c Calcium 8.2 L Phosphorus 7.60 H D Magnesium AST ALT Alkaline Phosphatase Lactate Dehydrogenase 477 H C-Reactive Protein 6.90 H Total Protein Albumin Triglycerides Arterial Blood Glucose Arterial Blood Ionized Calcium Urine WBC (Auto) U Epithel Cells (Auto) Urine Creatinine Random Vancomycin Coronavirus (PCR) Crossmatch 03/18/21 03/19/21 03/19/21 21:44 04:13 04:13 WBC 13.7 H RBC 3.32 L Hgb 9.0 L Hct 28.1 L MCH 27 L MCHC RDW 16.9 H Plt Count Lymph % (Auto) [place] # (Auto) Eos # (Auto) Seg Neutrophils % Lymphocytes % (Manual) Eosinophils % (Manual) Basophils % (Manual) Nucleated RBC % Seg Neutrophils # Seg Neutrophils # Man Lymphocytes # (Manual) Monocytes # (Manual) Eosinophils # (Manual) Basophils # (Manual) Percent Retic PT INR Fibrinogen D-Dimer ABG pH 7.290 L POC ABG pCO2 POC ABG pO2 ABG pO2 119.7 H ABG HCO3 28.0 H ABG O2 Saturation ABG Base Excess ABG Hemoglobin 9.6 L ABG Oxyhemoglobin ABG Sodium ABG Potassium ABG Chloride ABG Glucose Oxyhemoglobin Carboxyhemoglobin Sodium Potassium Chloride Carbon Dioxide BUN Creatinine Glucose POC Glucose Hemoglobin A1c Calcium Phosphorus Magnesium AST ALT Alkaline Phosphatase Lactate Dehydrogenase C-Reactive Protein Total Protein Albumin Triglycerides Arterial Blood Glucose Arterial Blood Ionized Calcium Urine WBC (Auto) U Epithel Cells (Auto) Urine Creatinine Random Vancomycin 43.5 H Coronavirus (PCR) Crossmatch 03/19/21 03/19/21 03/19/21 04:13 05:59 11:40 WBC RBC Hgb Hct MCH MCHC RDW Plt Count Lymph % (Auto) [place] # (Auto) Eos # (Auto) Seg Neutrophils % Lymphocytes % (Manual) Eosinophils % (Manual) Basophils % (Manual) Nucleated RBC % Seg Neutrophils # Seg Neutrophils # Man Lymphocytes # (Manual) Monocytes # (Manual) Eosinophils # (Manual) Basophils # (Manual) Percent Retic PT INR Fibrinogen D-Dimer ABG pH POC ABG pCO2 POC ABG pO2 ABG pO2 ABG HCO3 ABG O2 Saturation ABG Base Excess ABG Hemoglobin ABG Oxyhemoglobin ABG Sodium ABG Potassium ABG Chloride ABG Glucose Oxyhemoglobin Carboxyhemoglobin Sodium Potassium Chloride Carbon Dioxide BUN 55 H Creatinine 7.0 H Glucose POC Glucose 116 H 145 H Hemoglobin A1c Calcium 8.1 L Phosphorus 7.90 H Magnesium AST ALT Alkaline Phosphatase Lactate Dehydrogenase C-Reactive Protein Total Protein Albumin Triglycerides Arterial Blood Glucose Arterial Blood Ionized Calcium Urine WBC (Auto) U Epithel Cells (Auto) Urine Creatinine Random Vancomycin Coronavirus (PCR) Crossmatch 03/19/21 03/19/21 03/20/21 17:01 23:41 04:00 WBC 15.6 H RBC 3.55 L Hgb 9.6 L Hct MCH 27 L MCHC RDW 16.8 H Plt Count 139 L Lymph % (Auto) [place] # (Auto) Eos # (Auto) Seg Neutrophils % Lymphocytes % (Manual) Eosinophils % (Manual) Basophils % (Manual) Nucleated RBC % Seg Neutrophils # Seg Neutrophils # Man Lymphocytes # (Manual) Monocytes # (Manual) Eosinophils # (Manual) Basophils # (Manual) Percent Retic PT INR Fibrinogen D-Dimer ABG pH POC ABG pCO2 POC ABG pO2 ABG pO2 ABG HCO3 ABG O2 Saturation ABG Base Excess ABG Hemoglobin ABG Oxyhemoglobin ABG Sodium ABG Potassium ABG Chloride ABG Glucose Oxyhemoglobin Carboxyhemoglobin Sodium Potassium Chloride Carbon Dioxide BUN Creatinine Glucose POC Glucose 111 H 118 H Hemoglobin A1c Calcium Phosphorus Magnesium AST ALT Alkaline Phosphatase Lactate Dehydrogenase C-Reactive Protein Total Protein Albumin Triglycerides Arterial Blood Glucose Arterial Blood Ionized Calcium Urine WBC (Auto) U Epithel Cells (Auto) Urine Creatinine Random Vancomycin Coronavirus (PCR) Crossmatch 03/20/21 03/20/21 03/20/21 04:00 04:00 04:37 WBC RBC Hgb Hct MCH MCHC RDW Plt Count Lymph % (Auto) [place] # (Auto) Eos # (Auto) Seg Neutrophils % Lymphocytes % (Manual) Eosinophils % (Manual) Basophils % (Manual) Nucleated RBC % Seg Neutrophils # Seg Neutrophils # Man Lymphocytes # (Manual) Monocytes # (Manual) Eosinophils # (Manual) Basophils # (Manual) Percent Retic PT INR Fibrinogen D-Dimer > 43461 H ABG pH 7.306 L POC ABG pCO2 POC ABG pO2 ABG pO2 ABG HCO3 27.9 H ABG O2 Saturation ABG Base Excess ABG Hemoglobin 5.2 L ABG Oxyhemoglobin ABG Sodium ABG Potassium ABG Chloride ABG Glucose Oxyhemoglobin Carboxyhemoglobin Sodium Potassium 5.2 H Chloride 97.6 L Carbon Dioxide BUN 52 H Creatinine 6.2 H Glucose 104 H POC Glucose Hemoglobin A1c Calcium Phosphorus 8.60 H Magnesium AST ALT Alkaline Phosphatase Lactate Dehydrogenase C-Reactive Protein 6.90 H Total Protein Albumin Triglycerides Arterial Blood Glucose Arterial Blood Ionized Calcium Urine WBC (Auto) U Epithel Cells (Auto) Urine Creatinine Random Vancomycin Coronavirus (PCR) Crossmatch 03/20/21 03/20/21 03/20/21 13:50 17:46 17:56 WBC RBC Hgb Hct MCH MCHC RDW Plt Count Lymph % (Auto) [place] # (Auto) Eos # (Auto) Seg Neutrophils % Lymphocytes % (Manual) Eosinophils % (Manual) Basophils % (Manual) Nucleated RBC % Seg Neutrophils # Seg Neutrophils # Man Lymphocytes # (Manual) Monocytes # (Manual) Eosinophils # (Manual) Basophils # (Manual) Percent Retic PT INR Fibrinogen D-Dimer ABG pH POC ABG pCO2 POC ABG pO2 ABG pO2 ABG HCO3 ABG O2 Saturation ABG Base Excess ABG Hemoglobin ABG Oxyhemoglobin ABG Sodium ABG Potassium ABG Chloride ABG Glucose Oxyhemoglobin Carboxyhemoglobin Sodium Potassium Chloride Carbon Dioxide BUN 63 H 43 H Creatinine Glucose POC Glucose 145 H Hemoglobin A1c Calcium Phosphorus Magnesium AST ALT Alkaline Phosphatase Lactate Dehydrogenase C-Reactive Protein Total Protein Albumin Triglycerides Arterial Blood Glucose Arterial Blood Ionized Calcium Urine WBC (Auto) U Epithel Cells (Auto) Urine Creatinine Random Vancomycin Coronavirus (PCR) Crossmatch 03/20/21 03/21/21 03/21/21 23:18 06:58 06:58 WBC 14.4 H RBC 3.41 L Hgb 9.5 L Hct 28.6 L MCH MCHC RDW 17.4 H Plt Count 107 L Lymph % (Auto) [place] # (Auto) Eos # (Auto) Seg Neutrophils % Lymphocytes % (Manual) Eosinophils % (Manual) Basophils % (Manual) Nucleated RBC % Seg Neutrophils # Seg Neutrophils # Man Lymphocytes # (Manual) Monocytes # (Manual) Eosinophils # (Manual) Basophils # (Manual) Percent Retic PT INR Fibrinogen D-Dimer ABG pH POC ABG pCO2 POC ABG pO2 ABG pO2 ABG HCO3 ABG O2 Saturation ABG Base Excess ABG Hemoglobin ABG Oxyhemoglobin ABG Sodium ABG Potassium ABG Chloride ABG Glucose Oxyhemoglobin Carboxyhemoglobin Sodium Potassium Chloride Carbon Dioxide BUN 60 H Creatinine 7.7 H Glucose POC Glucose 106 H Hemoglobin A1c Calcium Phosphorus Magnesium AST ALT Alkaline Phosphatase Lactate Dehydrogenase C-Reactive Protein Total Protein Albumin Triglycerides Arterial Blood Glucose Arterial Blood Ionized Calcium Urine WBC (Auto) U Epithel Cells (Auto) Urine Creatinine Random Vancomycin Coronavirus (PCR) Crossmatch 03/21/21 03/21/21 03/21/21 11:11 18:04 Unknown WBC RBC Hgb Hct MCH MCHC RDW Plt Count Lymph % (Auto) [place] # (Auto) Eos # (Auto) Seg Neutrophils % Lymphocytes % (Manual) Eosinophils % (Manual) Basophils % (Manual) Nucleated RBC % Seg Neutrophils # Seg Neutrophils # Man Lymphocytes # (Manual) Monocytes # (Manual) Eosinophils # (Manual) Basophils # (Manual) Percent Retic PT INR Fibrinogen D-Dimer ABG pH 7.270 L POC ABG pCO2 58.7 H POC ABG pO2 76.9 L ABG pO2 ABG HCO3 ABG O2 Saturation ABG Base Excess ABG Hemoglobin 9.9 L ABG Oxyhemoglobin 92.4 L ABG Sodium 135.8 L ABG Potassium 4.6 H ABG Chloride ABG Glucose Oxyhemoglobin Carboxyhemoglobin 0.1 L Sodium Potassium Chloride Carbon Dioxide BUN Creatinine Glucose POC Glucose 109 H 141 H Hemoglobin A1c Calcium Phosphorus Magnesium AST ALT Alkaline Phosphatase Lactate Dehydrogenase C-Reactive Protein Total Protein Albumin Triglycerides Arterial Blood Glucose Arterial Blood Ionized Calcium 4.5 L Urine WBC (Auto) U Epithel Cells (Auto) Urine Creatinine Random Vancomycin Coronavirus (PCR) Crossmatch 03/22/21 03/22/21 03/22/21 03:09 07:10 10:00 WBC RBC Hgb Hct MCH MCHC RDW Plt Count Lymph % (Auto) [place] # (Auto) Eos # (Auto) Seg Neutrophils % Lymphocytes % (Manual) Eosinophils % (Manual) Basophils % (Manual) Nucleated RBC % Seg Neutrophils # Seg Neutrophils # Man Lymphocytes # (Manual) Monocytes # (Manual) Eosinophils # (Manual) Basophils # (Manual) Percent Retic PT INR Fibrinogen D-Dimer ABG pH 7.206 L 7.245 L POC ABG pCO2 55.6 H POC ABG pO2 ABG pO2 90.6 H ABG HCO3 ABG O2 Saturation ABG Base Excess -4.4 L ABG Hemoglobin 9.0 L 8.4 L ABG Oxyhemoglobin ABG Sodium 123.4 L ABG Potassium 5.6 H ABG Chloride ABG Glucose 106 H Oxyhemoglobin 94.5 L Carboxyhemoglobin 0.1 L Sodium Potassium 5.4 H Chloride 96.8 L Carbon Dioxide BUN 89 H Creatinine 8.7 H Glucose 131 H POC Glucose Hemoglobin A1c Calcium Phosphorus Magnesium AST ALT Alkaline Phosphatase Lactate Dehydrogenase C-Reactive Protein 9.40 H Total Protein Albumin Triglycerides Arterial Blood Glucose 106 H Arterial Blood Ionized Calcium Urine WBC (Auto) U Epithel Cells (Auto) Urine Creatinine Random Vancomycin Coronavirus (PCR) Crossmatch 03/22/21 03/22/21 03/22/21 10:00 12:37 13:19 WBC RBC 3.05 L Hgb 8.4 L Hct 25.5 L MCH MCHC RDW 17.5 H Plt Count 108 L Lymph % (Auto) [place] # (Auto) Eos # (Auto) Seg Neutrophils % Lymphocytes % (Manual) Eosinophils % (Manual) Basophils % (Manual) Nucleated RBC % Seg Neutrophils # Seg Neutrophils # Man Lymphocytes # (Manual) Monocytes # (Manual) Eosinophils # (Manual) Basophils # (Manual) Percent Retic PT INR Fibrinogen D-Dimer ABG pH POC ABG pCO2 POC ABG pO2 ABG pO2 ABG HCO3 ABG O2 Saturation ABG Base Excess ABG Hemoglobin ABG Oxyhemoglobin ABG Sodium ABG Potassium ABG Chloride ABG Glucose Oxyhemoglobin Carboxyhemoglobin Sodium Potassium Chloride Carbon Dioxide BUN Creatinine 8.7 H Glucose POC Glucose 140 H Hemoglobin A1c Calcium Phosphorus Magnesium AST ALT Alkaline Phosphatase Lactate Dehydrogenase C-Reactive Protein Total Protein Albumin Triglycerides Arterial Blood Glucose Arterial Blood Ionized Calcium Urine WBC (Auto) U Epithel Cells (Auto) Urine Creatinine Random Vancomycin Coronavirus (PCR) Crossmatch 03/22/21 03/22/21 03/22/21 13:40 17:14 18:21 WBC RBC Hgb Hct MCH MCHC RDW Plt Count Lymph % (Auto) [place] # (Auto) Eos # (Auto) Seg Neutrophils % Lymphocytes % (Manual) Eosinophils % (Manual) Basophils % (Manual) Nucleated RBC % Seg Neutrophils # Seg Neutrophils # Man Lymphocytes # (Manual) Monocytes # (Manual) Eosinophils # (Manual) Basophils # (Manual) Percent Retic PT 15.8 H INR 1.14 H Fibrinogen D-Dimer > 35056 H ABG pH POC ABG pCO2 POC ABG pO2 ABG pO2 ABG HCO3 ABG O2 Saturation ABG Base Excess ABG Hemoglobin ABG Oxyhemoglobin ABG Sodium ABG Potassium ABG Chloride ABG Glucose Oxyhemoglobin Carboxyhemoglobin Sodium Potassium Chloride Carbon Dioxide BUN Creatinine Glucose POC Glucose 117 H 112 H Hemoglobin A1c Calcium Phosphorus Magnesium AST ALT Alkaline Phosphatase Lactate Dehydrogenase C-Reactive Protein Total Protein Albumin Triglycerides Arterial Blood Glucose Arterial Blood Ionized Calcium Urine WBC (Auto) U Epithel Cells (Auto) Urine Creatinine Random Vancomycin Coronavirus (PCR) Crossmatch 03/22/21 03/22/21 03/23/21 21:25 22:57 04:30 WBC RBC Hgb Hct MCH MCHC RDW Plt Count Lymph % (Auto) [place] # (Auto) Eos # (Auto) Seg Neutrophils % Lymphocytes % (Manual) Eosinophils % (Manual) Basophils % (Manual) Nucleated RBC % Seg Neutrophils # Seg Neutrophils # Man Lymphocytes # (Manual) Monocytes # (Manual) Eosinophils # (Manual) Basophils # (Manual) Percent Retic PT INR Fibrinogen D-Dimer ABG pH 7.188 L* POC ABG pCO2 POC ABG pO2 ABG pO2 97.9 H ABG HCO3 ABG O2 Saturation ABG Base Excess -3.7 L ABG Hemoglobin 9.2 L ABG Oxyhemoglobin ABG Sodium ABG Potassium ABG Chloride ABG Glucose Oxyhemoglobin 94.4 L Carboxyhemoglobin Sodium Potassium Chloride Carbon Dioxide BUN Creatinine Glucose POC Glucose 106 H Hemoglobin A1c Calcium Phosphorus Magnesium AST ALT Alkaline Phosphatase Lactate Dehydrogenase C-Reactive Protein Total Protein Albumin Triglycerides 381 H Arterial Blood Glucose Arterial Blood Ionized Calcium Urine WBC (Auto) U Epithel Cells (Auto) Urine Creatinine Random Vancomycin Coronavirus (PCR) Crossmatch 03/23/21 03/23/21 03/23/21 04:30 04:30 05:37 WBC 20.1 H RBC 3.17 L Hgb 8.6 L Hct 27.2 L MCH 27 L MCHC RDW 17.4 H Plt Count 118 L Lymph % (Auto) [place] # (Auto) Eos # (Auto) Seg Neutrophils % Lymphocytes % (Manual) Eosinophils % (Manual) Basophils % (Manual) Nucleated RBC % Seg Neutrophils # Seg Neutrophils # Man Lymphocytes # (Manual) Monocytes # (Manual) Eosinophils # (Manual) Basophils # (Manual) Percent Retic PT INR Fibrinogen D-Dimer ABG pH POC ABG pCO2 POC ABG pO2 ABG pO2 ABG HCO3 ABG O2 Saturation ABG Base Excess ABG Hemoglobin ABG Oxyhemoglobin ABG Sodium ABG Potassium ABG Chloride ABG Glucose Oxyhemoglobin Carboxyhemoglobin Sodium Potassium 5.2 H Chloride 97.1 L Carbon Dioxide 21 L BUN 82 H Creatinine 9.1 H Glucose 109 H POC Glucose 130 H Hemoglobin A1c Calcium Phosphorus 10.80 H Magnesium 3.50 H AST ALT Alkaline Phosphatase Lactate Dehydrogenase C-Reactive Protein Total Protein Albumin Triglycerides Arterial Blood Glucose Arterial Blood Ionized Calcium Urine WBC (Auto) U Epithel Cells (Auto) Urine Creatinine Random Vancomycin Coronavirus (PCR) Crossmatch 03/23/21 03/23/21 03/23/21 08:44 11:30 16:09 WBC RBC Hgb Hct MCH MCHC RDW Plt Count Lymph % (Auto) [place] # (Auto) Eos # (Auto) Seg Neutrophils % Lymphocytes % (Manual) Eosinophils % (Manual) Basophils % (Manual) Nucleated RBC % Seg Neutrophils # Seg Neutrophils # Man Lymphocytes # (Manual) Monocytes # (Manual) Eosinophils # (Manual) Basophils # (Manual) Percent Retic PT INR Fibrinogen D-Dimer ABG pH 7.190 L POC ABG pCO2 57.9 H POC ABG pO2 79.2 L ABG pO2 ABG HCO3 ABG O2 Saturation ABG Base Excess ABG Hemoglobin 11.8 L ABG Oxyhemoglobin 92.3 L ABG Sodium 131.0 L ABG Potassium 5.0 H ABG Chloride ABG Glucose 122 H Oxyhemoglobin Carboxyhemoglobin 0.4 L Sodium Potassium Chloride Carbon Dioxide BUN Creatinine Glucose POC Glucose 129 H 148 H Hemoglobin A1c Calcium Phosphorus Magnesium AST ALT Alkaline Phosphatase Lactate Dehydrogenase C-Reactive Protein Total Protein Albumin Triglycerides Arterial Blood Glucose 122 H Arterial Blood Ionized Calcium 4.4 L Urine WBC (Auto) U Epithel Cells (Auto) Urine Creatinine Random Vancomycin Coronavirus (PCR) Crossmatch 03/23/21 03/24/21 03/24/21 21:00 03:35 04:00 WBC 17.8 H RBC 2.96 L Hgb 8.1 L Hct 25.0 L MCH 27 L MCHC RDW 17.7 H Plt Count 124 L Lymph % (Auto) [place] # (Auto) Eos # (Auto) Seg Neutrophils % Lymphocytes % (Manual) Eosinophils % (Manual) Basophils % (Manual) Nucleated RBC % Seg Neutrophils # Seg Neutrophils # Man Lymphocytes # (Manual) Monocytes # (Manual) Eosinophils # (Manual) Basophils # (Manual) Percent Retic PT INR Fibrinogen D-Dimer ABG pH 7.223 L POC ABG pCO2 50.3 H POC ABG pO2 114.4 H ABG pO2 ABG HCO3 ABG O2 Saturation ABG Base Excess ABG Hemoglobin 8.8 L ABG Oxyhemoglobin ABG Sodium 130.4 L ABG Potassium 5.1 H ABG Chloride ABG Glucose 126 H Oxyhemoglobin Carboxyhemoglobin 0.2 L Sodium Potassium Chloride Carbon Dioxide BUN Creatinine Glucose POC Glucose 148 H Hemoglobin A1c Calcium Phosphorus Magnesium AST ALT Alkaline Phosphatase Lactate Dehydrogenase C-Reactive Protein Total Protein Albumin Triglycerides Arterial Blood Glucose 126 H Arterial Blood Ionized Calcium 4.4 L Urine WBC (Auto) U Epithel Cells (Auto) Urine Creatinine Random Vancomycin Coronavirus (PCR) Crossmatch 03/24/21 03/24/21 03/24/21 04:00 06:49 12:29 WBC RBC Hgb Hct MCH MCHC RDW Plt Count Lymph % (Auto) [place] # (Auto) Eos # (Auto) Seg Neutrophils % Lymphocytes % (Manual) Eosinophils % (Manual) Basophils % (Manual) Nucleated RBC % Seg Neutrophils # Seg Neutrophils # Man Lymphocytes # (Manual) Monocytes # (Manual) Eosinophils # (Manual) Basophils # (Manual) Percent Retic PT INR Fibrinogen D-Dimer ABG pH POC ABG pCO2 POC ABG pO2 ABG pO2 ABG HCO3 ABG O2 Saturation ABG Base Excess ABG Hemoglobin ABG Oxyhemoglobin ABG Sodium ABG Potassium ABG Chloride ABG Glucose Oxyhemoglobin Carboxyhemoglobin Sodium Potassium Chloride 95.6 L Carbon Dioxide 20 L BUN 108 H Creatinine 10.8 H Glucose 155 H POC Glucose 136 H 142 H Hemoglobin A1c Calcium Phosphorus Magnesium AST ALT Alkaline Phosphatase Lactate Dehydrogenase C-Reactive Protein Total Protein Albumin Triglycerides Arterial Blood Glucose Arterial Blood Ionized Calcium Urine WBC (Auto) U Epithel Cells (Auto) Urine Creatinine Random Vancomycin Coronavirus (PCR) Crossmatch 03/24/21 03/25/21 03/25/21 21:35 00:15 05:51 WBC RBC Hgb Hct MCH MCHC RDW Plt Count Lymph % (Auto) [place] # (Auto) Eos # (Auto) Seg Neutrophils % Lymphocytes % (Manual) Eosinophils % (Manual) Basophils % (Manual) Nucleated RBC % Seg Neutrophils # Seg Neutrophils # Man Lymphocytes # (Manual) Monocytes # (Manual) Eosinophils # (Manual) Basophils # (Manual) Percent Retic PT INR Fibrinogen D-Dimer ABG pH 7.241 L POC ABG pCO2 POC ABG pO2 ABG pO2 72.4 L ABG HCO3 ABG O2 Saturation 90.3 L ABG Base Excess ABG Hemoglobin 7.9 L ABG Oxyhemoglobin ABG Sodium ABG Potassium ABG Chloride ABG Glucose Oxyhemoglobin 88.4 L Carboxyhemoglobin Sodium Potassium Chloride Carbon Dioxide BUN Creatinine Glucose POC Glucose 110 H 121 H Hemoglobin A1c Calcium Phosphorus Magnesium AST ALT Alkaline Phosphatase Lactate Dehydrogenase C-Reactive Protein Total Protein Albumin Triglycerides Arterial Blood Glucose Arterial Blood Ionized Calcium Urine WBC (Auto) U Epithel Cells (Auto) Urine Creatinine Random Vancomycin Coronavirus (PCR) Crossmatch 11/04/0403/25/21 03/25/21 05:54 05:54 12:21 WBC 12.4 H RBC 2.52 L Hgb 6.9 L Hct 21.1 L MCH MCHC RDW 17.4 H Plt Count 102 L Lymph % (Auto) [place] # (Auto) Eos # (Auto) Seg Neutrophils % Lymphocytes % (Manual) Eosinophils % (Manual) Basophils % (Manual) Nucleated RBC % Seg Neutrophils # Seg Neutrophils # Man Lymphocytes # (Manual) Monocytes # (Manual) Eosinophils # (Manual) Basophils # (Manual) Percent Retic PT INR Fibrinogen D-Dimer ABG pH POC ABG pCO2 POC ABG pO2 ABG pO2 ABG HCO3 ABG O2 Saturation ABG Base Excess ABG Hemoglobin ABG Oxyhemoglobin ABG Sodium ABG Potassium ABG Chloride ABG Glucose Oxyhemoglobin Carboxyhemoglobin Sodium Potassium Chloride 96.7 L Carbon Dioxide BUN 81 H Creatinine 8.1 H Glucose 116 H POC Glucose 138 H Hemoglobin A1c Calcium 8.2 L Phosphorus Magnesium AST ALT Alkaline Phosphatase Lactate Dehydrogenase C-Reactive Protein Total Protein Albumin Triglycerides Arterial Blood Glucose Arterial Blood Ionized Calcium Urine WBC (Auto) U Epithel Cells (Auto) Urine Creatinine Random Vancomycin Coronavirus (PCR) Crossmatch 03/25/21 03/25/21 03/25/21 13:45 17:32 21:30 WBC RBC Hgb Hct MCH MCHC RDW Plt Count Lymph % (Auto) [place] # (Auto) Eos # (Auto) Seg Neutrophils % Lymphocytes % (Manual) Eosinophils % (Manual) Basophils % (Manual) Nucleated RBC % Seg Neutrophils # Seg Neutrophils # Man Lymphocytes # (Manual) Monocytes # (Manual) Eosinophils # (Manual) Basophils # (Manual) Percent Retic PT INR Fibrinogen D-Dimer ABG pH POC ABG pCO2 POC ABG pO2 ABG pO2 70.2 L ABG HCO3 ABG O2 Saturation ABG Base Excess ABG Hemoglobin 6.8 L ABG Oxyhemoglobin ABG Sodium ABG Potassium ABG Chloride ABG Glucose Oxyhemoglobin 94.5 L Carboxyhemoglobin Sodium Potassium Chloride Carbon Dioxide BUN Creatinine Glucose POC Glucose 110 H Hemoglobin A1c Calcium Phosphorus Magnesium AST ALT Alkaline Phosphatase Lactate Dehydrogenase C-Reactive Protein Total Protein Albumin Triglycerides Arterial Blood Glucose Arterial Blood Ionized Calcium Urine WBC (Auto) U Epithel Cells (Auto) Urine Creatinine Random Vancomycin Coronavirus (PCR) Crossmatch See Detail 03/25/21 03/25/21 03/26/21 23:29 Unknown 05:15 WBC 12.4 H 14.0 H RBC 2.49 L 2.83 L Hgb 6.8 L 7.6 L Hct 20.9 L 23.6 L MCH 27 L 27 L MCHC RDW 18.0 H 17.1 H Plt Count 107 L 116 L Lymph % (Auto) [place] # (Auto) Eos # (Auto) Seg Neutrophils % Lymphocytes % (Manual) Eosinophils % (Manual) Basophils % (Manual) Nucleated RBC % Seg Neutrophils # Seg Neutrophils # Man Lymphocytes # (Manual) Monocytes # (Manual) Eosinophils # (Manual) Basophils # (Manual) Percent Retic PT INR Fibrinogen D-Dimer ABG pH POC ABG pCO2 POC ABG pO2 ABG pO2 ABG HCO3 ABG O2 Saturation ABG Base Excess ABG Hemoglobin ABG Oxyhemoglobin ABG Sodium ABG Potassium ABG Chloride ABG Glucose Oxyhemoglobin Carboxyhemoglobin Sodium Potassium Chloride Carbon Dioxide BUN Creatinine Glucose POC Glucose 113 H Hemoglobin A1c Calcium Phosphorus Magnesium AST ALT Alkaline Phosphatase Lactate Dehydrogenase C-Reactive Protein Total Protein Albumin Triglycerides Arterial Blood Glucose Arterial Blood Ionized Calcium Urine WBC (Auto) U Epithel Cells (Auto) Urine Creatinine Random Vancomycin Coronavirus (PCR) Crossmatch 03/26/21 03/26/21 03/26/21 05:15 05:35 09:50 WBC RBC Hgb Hct MCH MCHC RDW Plt Count Lymph % (Auto) [place] # (Auto) Eos # (Auto) Seg Neutrophils % Lymphocytes % (Manual) Eosinophils % (Manual) Basophils % (Manual) Nucleated RBC % Seg Neutrophils # Seg Neutrophils # Man Lymphocytes # (Manual) Monocytes # (Manual) Eosinophils # (Manual) Basophils # (Manual) Percent Retic PT INR Fibrinogen D-Dimer ABG pH POC ABG pCO2 POC ABG pO2 ABG pO2 79.9 L ABG HCO3 ABG O2 Saturation ABG Base Excess ABG Hemoglobin 7.1 L ABG Oxyhemoglobin ABG Sodium ABG Potassium ABG Chloride ABG Glucose Oxyhemoglobin 94.9 L Carboxyhemoglobin Sodium Potassium 3.4 L Chloride Carbon Dioxide BUN 70 H Creatinine 7.3 H Glucose 142 H POC Glucose 130 H Hemoglobin A1c Calcium 8.2 L Phosphorus Magnesium AST ALT Alkaline Phosphatase Lactate Dehydrogenase C-Reactive Protein Total Protein Albumin Triglycerides 254 H Arterial Blood Glucose Arterial Blood Ionized Calcium Urine WBC (Auto) U Epithel Cells (Auto) Urine Creatinine Random Vancomycin Coronavirus (PCR) Crossmatch 03/26/21 03/26/21 03/26/21 11:45 16:36 23:33 WBC RBC Hgb Hct MCH MCHC RDW Plt Count Lymph % (Auto) [place] # (Auto) Eos # (Auto) Seg Neutrophils % Lymphocytes % (Manual) Eosinophils % (Manual) Basophils % (Manual) Nucleated RBC % Seg Neutrophils # Seg Neutrophils # Man Lymphocytes # (Manual) Monocytes # (Manual) Eosinophils # (Manual) Basophils # (Manual) Percent Retic PT INR Fibrinogen D-Dimer ABG pH POC ABG pCO2 POC ABG pO2 ABG pO2 ABG HCO3 ABG O2 Saturation ABG Base Excess ABG Hemoglobin ABG Oxyhemoglobin ABG Sodium ABG Potassium ABG Chloride ABG Glucose Oxyhemoglobin Carboxyhemoglobin Sodium Potassium Chloride Carbon Dioxide BUN Creatinine Glucose POC Glucose 123 H 121 H 120 H Hemoglobin A1c Calcium Phosphorus Magnesium AST ALT Alkaline Phosphatase Lactate Dehydrogenase C-Reactive Protein Total Protein Albumin Triglycerides Arterial Blood Glucose Arterial Blood Ionized Calcium Urine WBC (Auto) U Epithel Cells (Auto) Urine Creatinine Random Vancomycin Coronavirus (PCR) Crossmatch 03/27/21 03/27/21 03/27/21 03:20 04:14 08:20 WBC 13.2 H RBC 2.82 L Hgb 7.9 L Hct 23.5 L MCH MCHC RDW 17.3 H Plt Count 125 L Lymph % (Auto) [place] # (Auto) Eos # (Auto) Seg Neutrophils % Lymphocytes % (Manual) Eosinophils % (Manual) Basophils % (Manual) Nucleated RBC % Seg Neutrophils # Seg Neutrophils # Man Lymphocytes # (Manual) Monocytes # (Manual) Eosinophils # (Manual) Basophils # (Manual) Percent Retic PT INR Fibrinogen D-Dimer ABG pH POC ABG pCO2 50.0 H POC ABG pO2 58.3 L ABG pO2 ABG HCO3 ABG O2 Saturation ABG Base Excess ABG Hemoglobin 11.3 L ABG Oxyhemoglobin 88.5 L ABG Sodium ABG Potassium ABG Chloride ABG Glucose 132 H Oxyhemoglobin Carboxyhemoglobin 0.2 L Sodium Potassium Chloride Carbon Dioxide BUN Creatinine Glucose POC Glucose 119 H Hemoglobin A1c Calcium Phosphorus Magnesium AST ALT Alkaline Phosphatase Lactate Dehydrogenase C-Reactive Protein Total Protein Albumin Triglycerides Arterial Blood Glucose 132 H Arterial Blood Ionized Calcium Urine WBC (Auto) U Epithel Cells (Auto) Urine Creatinine Random Vancomycin Coronavirus (PCR) Crossmatch 03/27/21 03/27/2121 08:20 11:39 17:32 WBC RBC Hgb Hct MCH MCHC RDW Plt Count Lymph % (Auto) [place] # (Auto) Eos # (Auto) Seg Neutrophils % Lymphocytes % (Manual) Eosinophils % (Manual) Basophils % (Manual) Nucleated RBC % Seg Neutrophils # Seg Neutrophils # Man Lymphocytes # (Manual) Monocytes # (Manual) Eosinophils # (Manual) Basophils # (Manual) Percent Retic PT INR Fibrinogen D-Dimer ABG pH POC ABG pCO2 POC ABG pO2 ABG pO2 ABG HCO3 ABG O2 Saturation ABG Base Excess ABG Hemoglobin ABG Oxyhemoglobin ABG Sodium ABG Potassium ABG Chloride ABG Glucose Oxyhemoglobin Carboxyhemoglobin Sodium Potassium Chloride Carbon Dioxide BUN 57 H Creatinine 6.8 H Glucose 131 H POC Glucose 121 H 126 H Hemoglobin A1c Calcium Phosphorus Magnesium AST ALT Alkaline Phosphatase Lactate Dehydrogenase C-Reactive Protein Total Protein Albumin Triglycerides Arterial Blood Glucose Arterial Blood Ionized Calcium Urine WBC (Auto) U Epithel Cells (Auto) Urine Creatinine Random Vancomycin Coronavirus (PCR) Crossmatch 03/28/21 03/28/21 03/28/21 00:10 04:45 05:25 WBC RBC Hgb Hct MCH MCHC RDW Plt Count Lymph % (Auto) [place] # (Auto) Eos # (Auto) Seg Neutrophils % Lymphocytes % (Manual) Eosinophils % (Manual) Basophils % (Manual) Nucleated RBC % Seg Neutrophils # Seg Neutrophils # Man Lymphocytes # (Manual) Monocytes # (Manual) Eosinophils # (Manual) Basophils # (Manual) Percent Retic PT INR Fibrinogen D-Dimer ABG pH POC ABG pCO2 POC ABG pO2 ABG pO2 57.6 L ABG HCO3 27.1 H ABG O2 Saturation 88.5 L ABG Base Excess ABG Hemoglobin ABG Oxyhemoglobin ABG Sodium ABG Potassium ABG Chloride ABG Glucose Oxyhemoglobin 86.6 L Carboxyhemoglobin Sodium Potassium Chloride Carbon Dioxide BUN Creatinine Glucose POC Glucose 113 H 121 H Hemoglobin A1c Calcium Phosphorus Magnesium AST ALT Alkaline Phosphatase Lactate Dehydrogenase C-Reactive Protein Total Protein Albumin Triglycerides Arterial Blood Glucose Arterial Blood Ionized Calcium Urine WBC (Auto) U Epithel Cells (Auto) Urine Creatinine Random Vancomycin Coronavirus (PCR) Crossmatch 03/28/21 03/28/21 03/28/21 09:37 09:37 11:48 WBC 16.3 H RBC 2.92 L Hgb 8.2 L Hct 24.8 L MCH MCHC RDW 17.5 H Plt Count Lymph % (Auto) 10.7 L [place] # (Auto) 0.9 H Eos # (Auto) 0.6 H Seg Neutrophils % 80.0 H Lymphocytes % (Manual) Eosinophils % (Manual) Basophils % (Manual) Nucleated RBC % Seg Neutrophils # 13.0 H Seg Neutrophils # Man Lymphocytes # (Manual) Monocytes # (Manual) Eosinophils # (Manual) Basophils # (Manual) Percent Retic PT INR Fibrinogen D-Dimer ABG pH POC ABG pCO2 POC ABG pO2 ABG pO2 ABG HCO3 ABG O2 Saturation ABG Base Excess ABG Hemoglobin ABG Oxyhemoglobin ABG Sodium ABG Potassium ABG Chloride ABG Glucose Oxyhemoglobin Carboxyhemoglobin Sodium Potassium Chloride Carbon Dioxide BUN 61 H Creatinine 7.7 H Glucose 148 H POC Glucose 123 H Hemoglobin A1c Calcium Phosphorus Magnesium AST ALT Alkaline Phosphatase Lactate Dehydrogenase C-Reactive Protein Total Protein Albumin Triglycerides Arterial Blood Glucose Arterial Blood Ionized Calcium Urine WBC (Auto) U Epithel Cells (Auto) Urine Creatinine Random Vancomycin Coronavirus (PCR) Crossmatch 03/28/21 03/28/21 03/28/21 17:33 21:08 23:38 WBC RBC Hgb Hct MCH MCHC RDW Plt Count Lymph % (Auto) [place] # (Auto) Eos # (Auto) Seg Neutrophils % Lymphocytes % (Manual) Eosinophils % (Manual) Basophils % (Manual) Nucleated RBC % Seg Neutrophils # Seg Neutrophils # Man Lymphocytes # (Manual) Monocytes # (Manual) Eosinophils # (Manual) Basophils # (Manual) Percent Retic PT INR Fibrinogen D-Dimer ABG pH POC ABG pCO2 POC ABG pO2 80.5 L ABG pO2 ABG HCO3 ABG O2 Saturation ABG Base Excess ABG Hemoglobin 9.5 L ABG Oxyhemoglobin ABG Sodium 133.3 L ABG Potassium ABG Chloride ABG Glucose 134 H Oxyhemoglobin Carboxyhemoglobin 0.3 L Sodium Potassium Chloride Carbon Dioxide BUN Creatinine Glucose POC Glucose 128 H 112 H Hemoglobin A1c Calcium Phosphorus Magnesium AST ALT Alkaline Phosphatase Lactate Dehydrogenase C-Reactive Protein Total Protein Albumin Triglycerides Arterial Blood Glucose 134 H Arterial Blood Ionized Calcium Urine WBC (Auto) U Epithel Cells (Auto) Urine Creatinine Random Vancomycin Coronavirus (PCR) Crossmatch 03/29/21 03/29/21 03/29/21 04:45 04:45 04:45 WBC 17.5 H RBC 3.15 L Hgb 8.8 L Hct 27.2 L MCH MCHC RDW 17.9 H Plt Count 132 L Lymph % (Auto) [place] # (Auto) Eos # (Auto) Seg Neutrophils % Lymphocytes % (Manual) Eosinophils % (Manual) Basophils % (Manual) Nucleated RBC % Seg Neutrophils # Seg Neutrophils # Man Lymphocytes # (Manual) Monocytes # (Manual) Eosinophils # (Manual) Basophils # (Manual) Percent Retic PT INR Fibrinogen D-Dimer ABG pH POC ABG pCO2 POC ABG pO2 ABG pO2 ABG HCO3 ABG O2 Saturation ABG Base Excess ABG Hemoglobin ABG Oxyhemoglobin ABG Sodium ABG Potassium ABG Chloride ABG Glucose Oxyhemoglobin Carboxyhemoglobin Sodium Potassium Chloride 97.7 L Carbon Dioxide 21 L BUN 78 H Creatinine 9.5 H Glucose 132 H POC Glucose Hemoglobin A1c Calcium Phosphorus Magnesium AST ALT Alkaline Phosphatase Lactate Dehydrogenase C-Reactive Protein Total Protein Albumin 2.2 L Triglycerides 385 H Arterial Blood Glucose Arterial Blood Ionized Calcium Urine WBC (Auto) U Epithel Cells (Auto) Urine Creatinine Random Vancomycin Coronavirus (PCR) Crossmatch 03/29/21 03/29/21 03/29/21 11:35 16:50 21:06 WBC RBC Hgb Hct MCH MCHC RDW Plt Count Lymph % (Auto) [place] # (Auto) Eos # (Auto) Seg Neutrophils % Lymphocytes % (Manual) Eosinophils % (Manual) Basophils % (Manual) Nucleated RBC % Seg Neutrophils # Seg Neutrophils # Man Lymphocytes # (Manual) Monocytes # (Manual) Eosinophils # (Manual) Basophils # (Manual) Percent Retic PT INR Fibrinogen D-Dimer ABG pH POC ABG pCO2 POC ABG pO2 ABG pO2 64.9 L ABG HCO3 ABG O2 Saturation ABG Base Excess -5.2 L ABG Hemoglobin ABG Oxyhemoglobin ABG Sodium ABG Potassium ABG Chloride ABG Glucose Oxyhemoglobin 85.1 L Carboxyhemoglobin Sodium Potassium Chloride Carbon Dioxide BUN Creatinine Glucose POC Glucose 148 H 133 H Hemoglobin A1c Calcium Phosphorus Magnesium AST ALT Alkaline Phosphatase Lactate Dehydrogenase C-Reactive Protein Total Protein Albumin Triglycerides Arterial Blood Glucose Arterial Blood Ionized Calcium Urine WBC (Auto) U Epithel Cells (Auto) Urine Creatinine Random Vancomycin Coronavirus (PCR) Crossmatch 03/29/21 03/30/21 03/30/21 Unknown 00:13 04:00 WBC 15.7 H RBC 3.18 L Hgb 8.6 L Hct 27.3 L MCH 27 L MCHC RDW 18.0 H Plt Count 86 L Lymph % (Auto) [place] # (Auto) Eos # (Auto) Seg Neutrophils % Lymphocytes % (Manual) Eosinophils % (Manual) Basophils % (Manual) Nucleated RBC % Seg Neutrophils # Seg Neutrophils # Man Lymphocytes # (Manual) Monocytes # (Manual) Eosinophils # (Manual) Basophils # (Manual) Percent Retic PT INR Fibrinogen D-Dimer ABG pH 7.258 L POC ABG pCO2 POC ABG pO2 ABG pO2 ABG HCO3 ABG O2 Saturation ABG Base Excess -4.9 L ABG Hemoglobin 8.8 L ABG Oxyhemoglobin ABG Sodium ABG Potassium ABG Chloride ABG Glucose Oxyhemoglobin 93.9 L Carboxyhemoglobin Sodium Potassium Chloride Carbon Dioxide BUN Creatinine Glucose POC Glucose 129 H Hemoglobin A1c Calcium Phosphorus Magnesium AST ALT Alkaline Phosphatase Lactate Dehydrogenase C-Reactive Protein Total Protein Albumin Triglycerides Arterial Blood Glucose Arterial Blood Ionized Calcium Urine WBC (Auto) U Epithel Cells (Auto) Urine Creatinine Random Vancomycin Coronavirus (PCR) Crossmatch 03/30/21 03/30/21 03/30/21 04:00 04:00 06:02 WBC RBC Hgb Hct MCH MCHC RDW Plt Count Lymph % (Auto) [place] # (Auto) Eos # (Auto) Seg Neutrophils % Lymphocytes % (Manual) Eosinophils % (Manual) Basophils % (Manual) Nucleated RBC % Seg Neutrophils # Seg Neutrophils # Man Lymphocytes # (Manual) Monocytes # (Manual) Eosinophils # (Manual) Basophils # (Manual) Percent Retic PT INR Fibrinogen D-Dimer 2607.12 H ABG pH POC ABG pCO2 POC ABG pO2 ABG pO2 ABG HCO3 ABG O2 Saturation ABG Base Excess ABG Hemoglobin ABG Oxyhemoglobin ABG Sodium ABG Potassium ABG Chloride ABG Glucose Oxyhemoglobin Carboxyhemoglobin Sodium 133 L Potassium 5.2 H D Chloride 91.5 L Carbon Dioxide 18 L BUN 101 H Creatinine 10.6 H Glucose 149 H POC Glucose 130 H Hemoglobin A1c Calcium Phosphorus 10.30 H Magnesium AST ALT Alkaline Phosphatase Lactate Dehydrogenase C-Reactive Protein 21.50 H Total Protein Albumin Triglycerides Arterial Blood Glucose Arterial Blood Ionized Calcium Urine WBC (Auto) U Epithel Cells (Auto) Urine Creatinine Random Vancomycin Coronavirus (PCR) Crossmatch 03/30/21 03/30/21 03/30/21 10:36 11:48 17:20 WBC RBC Hgb Hct MCH MCHC RDW Plt Count Lymph % (Auto) [place] # (Auto) Eos # (Auto) Seg Neutrophils % Lymphocytes % (Manual) Eosinophils % (Manual) Basophils % (Manual) Nucleated RBC % Seg Neutrophils # Seg Neutrophils # Man Lymphocytes # (Manual) Monocytes # (Manual) Eosinophils # (Manual) Basophils # (Manual) Percent Retic PT INR Fibrinogen D-Dimer ABG pH 7.224 L POC ABG pCO2 49.1 H POC ABG pO2 61.5 L ABG pO2 ABG HCO3 ABG O2 Saturation ABG Base Excess ABG Hemoglobin 10.2 L ABG Oxyhemoglobin 86.2 L ABG Sodium 129.6 L ABG Potassium 5.4 H ABG Chloride 96.0 L ABG Glucose 161 H Oxyhemoglobin Carboxyhemoglobin Sodium Potassium Chloride Carbon Dioxide BUN Creatinine Glucose POC Glucose 163 H 130 H Hemoglobin A1c Calcium Phosphorus Magnesium AST ALT Alkaline Phosphatase Lactate Dehydrogenase C-Reactive Protein Total Protein Albumin Triglycerides Arterial Blood Glucose 161 H Arterial Blood Ionized Calcium 4.4 L Urine WBC (Auto) U Epithel Cells (Auto) Urine Creatinine Random Vancomycin Coronavirus (PCR) Crossmatch 03/30/21 03/31/21 03/31/21 23:49 00:28 05:20 WBC 17.3 H RBC 2.99 L Hgb 8.2 L Hct 25.3 L MCH 27 L MCHC RDW 18.3 H Plt Count 126 L Lymph % (Auto) [place] # (Auto) Eos # (Auto) Seg Neutrophils % Lymphocytes % (Manual) Eosinophils % (Manual) Basophils % (Manual) Nucleated RBC % Seg Neutrophils # Seg Neutrophils # Man Lymphocytes # (Manual) Monocytes # (Manual) Eosinophils # (Manual) Basophils # (Manual) Percent Retic PT INR Fibrinogen D-Dimer ABG pH 7.249 L POC ABG pCO2 POC ABG pO2 77.7 L ABG pO2 ABG HCO3 ABG O2 Saturation ABG Base Excess ABG Hemoglobin 9.0 L ABG Oxyhemoglobin 92.9 L ABG Sodium 130.4 L ABG Potassium 4.7 H ABG Chloride ABG Glucose 166 H Oxyhemoglobin Carboxyhemoglobin 0.4 L Sodium Potassium Chloride Carbon Dioxide BUN Creatinine Glucose POC Glucose 143 H Hemoglobin A1c Calcium Phosphorus Magnesium AST ALT Alkaline Phosphatase Lactate Dehydrogenase C-Reactive Protein Total Protein Albumin Triglycerides Arterial Blood Glucose 166 H Arterial Blood Ionized Calcium 4.3 L Urine WBC (Auto) U Epithel Cells (Auto) Urine Creatinine Random Vancomycin Coronavirus (PCR) Crossmatch 03/31/21 03/31/21 03/31/21 05:20 06:18 09:44 WBC RBC Hgb Hct MCH MCHC RDW Plt Count Lymph % (Auto) [place] # (Auto) Eos # (Auto) Seg Neutrophils % Lymphocytes % (Manual) Eosinophils % (Manual) Basophils % (Manual) Nucleated RBC % Seg Neutrophils # Seg Neutrophils # Man Lymphocytes # (Manual) Monocytes # (Manual) Eosinophils # (Manual) Basophils # (Manual) Percent Retic PT INR Fibrinogen D-Dimer ABG pH 7.247 L POC ABG pCO2 POC ABG pO2 ABG pO2 ABG HCO3 ABG O2 Saturation 94.4 L ABG Base Excess -5.1 L ABG Hemoglobin 8.2 L ABG Oxyhemoglobin ABG Sodium ABG Potassium ABG Chloride ABG Glucose Oxyhemoglobin 92.4 L Carboxyhemoglobin Sodium Potassium Chloride Carbon Dioxide BUN Creatinine Glucose POC Glucose 155 H Hemoglobin A1c Calcium Phosphorus 8.20 H D Magnesium AST ALT Alkaline Phosphatase Lactate Dehydrogenase C-Reactive Protein Total Protein Albumin Triglycerides Arterial Blood Glucose Arterial Blood Ionized Calcium Urine WBC (Auto) U Epithel Cells (Auto) Urine Creatinine Random Vancomycin Coronavirus (PCR) Crossmatch 03/31/21 03/31/21 03/31/21 09:49 09:55 09:55 WBC RBC Hgb Hct MCH MCHC RDW Plt Count Lymph % (Auto) [place] # (Auto) Eos # (Auto) Seg Neutrophils % Lymphocytes % (Manual) Eosinophils % (Manual) Basophils % (Manual) Nucleated RBC % Seg Neutrophils # Seg Neutrophils # Man Lymphocytes # (Manual) Monocytes # (Manual) Eosinophils # (Manual) Basophils # (Manual) Percent Retic 4.52 H PT 16.5 H INR 1.20 H Fibrinogen D-Dimer ABG pH POC ABG pCO2 POC ABG pO2 ABG pO2 ABG HCO3 ABG O2 Saturation ABG Base Excess ABG Hemoglobin ABG Oxyhemoglobin ABG Sodium ABG Potassium ABG Chloride ABG Glucose Oxyhemoglobin Carboxyhemoglobin Sodium 133 L Potassium Chloride 92.8 L Carbon Dioxide 20 L BUN 87 H Creatinine 8.9 H Glucose 177 H POC Glucose Hemoglobin A1c Calcium 8.2 L Phosphorus Magnesium AST 169 H ALT Alkaline Phosphatase 187 H Lactate Dehydrogenase C-Reactive Protein Total Protein Albumin 2.3 L Triglycerides Arterial Blood Glucose Arterial Blood Ionized Calcium Urine WBC (Auto) U Epithel Cells (Auto) Urine Creatinine Random Vancomycin Coronavirus (PCR) Crossmatch 03/31/21 03/31/21 03/31/21 09:55 09:55 11:25 WBC RBC Hgb Hct MCH MCHC RDW Plt Count Lymph % (Auto) [place] # (Auto) Eos # (Auto) Seg Neutrophils % Lymphocytes % (Manual) Eosinophils % (Manual) Basophils % (Manual) Nucleated RBC % Seg Neutrophils # Seg Neutrophils # Man Lymphocytes # (Manual) Monocytes # (Manual) Eosinophils # (Manual) Basophils # (Manual) Percent Retic PT INR Fibrinogen 491 H D-Dimer ABG pH POC ABG pCO2 POC ABG pO2 ABG pO2 ABG HCO3 ABG O2 Saturation ABG Base Excess ABG Hemoglobin ABG Oxyhemoglobin ABG Sodium ABG Potassium ABG Chloride ABG Glucose Oxyhemoglobin Carboxyhemoglobin Sodium Potassium Chloride Carbon Dioxide BUN Creatinine Glucose POC Glucose 178 H Hemoglobin A1c Calcium Phosphorus Magnesium AST ALT Alkaline Phosphatase Lactate Dehydrogenase 509 H C-Reactive Protein Total Protein Albumin Triglycerides Arterial Blood Glucose Arterial Blood Ionized Calcium Urine WBC (Auto) U Epithel Cells (Auto) Urine Creatinine Random Vancomycin Coronavirus (PCR) Crossmatch 03/31/21 03/31/21 03/31/21 12:30 17:40 21:00 WBC RBC Hgb Hct MCH MCHC RDW Plt Count Lymph % (Auto) [place] # (Auto) Eos # (Auto) Seg Neutrophils % Lymphocytes % (Manual) Eosinophils % (Manual) Basophils % (Manual) Nucleated RBC % Seg Neutrophils # Seg Neutrophils # Man Lymphocytes # (Manual) Monocytes # (Manual) Eosinophils # (Manual) Basophils # (Manual) Percent Retic PT INR Fibrinogen D-Dimer ABG pH 7.235 L 7.216 L POC ABG pCO2 POC ABG pO2 ABG pO2 76.8 L 113.9 H ABG HCO3 ABG O2 Saturation 93.2 L ABG Base Excess -5.3 L -7.3 L ABG Hemoglobin 6.3 L 8.0 L ABG Oxyhemoglobin ABG Sodium ABG Potassium ABG Chloride ABG Glucose Oxyhemoglobin 91.1 L Carboxyhemoglobin Sodium Potassium Chloride Carbon Dioxide BUN Creatinine Glucose POC Glucose 245 H Hemoglobin A1c Calcium Phosphorus Magnesium AST ALT Alkaline Phosphatase Lactate Dehydrogenase C-Reactive Protein Total Protein Albumin Triglycerides Arterial Blood Glucose Arterial Blood Ionized Calcium Urine WBC (Auto) U Epithel Cells (Auto) Urine Creatinine Random Vancomycin Coronavirus (PCR) Crossmatch 04/01/21 04/01/21 04/01/21 00:11 05:09 08:25 WBC RBC Hgb Hct MCH MCHC RDW Plt Count Lymph % (Auto) [place] # (Auto) Eos # (Auto) Seg Neutrophils % Lymphocytes % (Manual) Eosinophils % (Manual) Basophils % (Manual) Nucleated RBC % Seg Neutrophils # Seg Neutrophils # Man Lymphocytes # (Manual) Monocytes # (Manual) Eosinophils # (Manual) Basophils # (Manual) Percent Retic PT INR Fibrinogen D-Dimer ABG pH 7.225 L POC ABG pCO2 POC ABG pO2 ABG pO2 76.4 L ABG HCO3 ABG O2 Saturation 92.2 L ABG Base Excess -7.6 L ABG Hemoglobin 7.3 L ABG Oxyhemoglobin ABG Sodium ABG Potassium ABG Chloride ABG Glucose Oxyhemoglobin 90.2 L Carboxyhemoglobin Sodium Potassium Chloride Carbon Dioxide BUN Creatinine Glucose POC Glucose 209 H 173 H Hemoglobin A1c Calcium Phosphorus Magnesium AST ALT Alkaline Phosphatase Lactate Dehydrogenase C-Reactive Protein Total Protein Albumin Triglycerides Arterial Blood Glucose Arterial Blood Ionized Calcium Urine WBC (Auto) U Epithel Cells (Auto) Urine Creatinine Random Vancomycin Coronavirus (PCR) Crossmatch 04/01/21 04/01/21 04/01/21 12:01 12:05 17:55 WBC RBC Hgb Hct MCH MCHC RDW Plt Count Lymph % (Auto) [place] # (Auto) Eos # (Auto) Seg Neutrophils % Lymphocytes % (Manual) Eosinophils % (Manual) Basophils % (Manual) Nucleated RBC % Seg Neutrophils # Seg Neutrophils # Man Lymphocytes # (Manual) Monocytes # (Manual) Eosinophils # (Manual) Basophils # (Manual) Percent Retic PT INR Fibrinogen D-Dimer ABG pH POC ABG pCO2 POC ABG pO2 ABG pO2 ABG HCO3 ABG O2 Saturation ABG Base Excess ABG Hemoglobin ABG Oxyhemoglobin ABG Sodium ABG Potassium ABG Chloride ABG Glucose Oxyhemoglobin Carboxyhemoglobin Sodium Potassium 5.9 H Chloride Carbon Dioxide BUN Creatinine Glucose POC Glucose 202 H 217 H Hemoglobin A1c Calcium Phosphorus Magnesium AST ALT Alkaline Phosphatase Lactate Dehydrogenase C-Reactive Protein Total Protein Albumin Triglycerides Arterial Blood Glucose Arterial Blood Ionized Calcium Urine WBC (Auto) U Epithel Cells (Auto) Urine Creatinine Random Vancomycin Coronavirus (PCR) Crossmatch 04/01/21 04/01/21 04/01/21 Unknown Unknown 23:59 WBC 27.2 H RBC 3.08 L Hgb 8.4 L Hct 26.0 L MCH 27 L MCHC RDW 18.5 H Plt Count Lymph % (Auto) [place] # (Auto) Eos # (Auto) Seg Neutrophils % Lymphocytes % (Manual) Eosinophils % (Manual) Basophils % (Manual) Nucleated RBC % Seg Neutrophils # Seg Neutrophils # Man Lymphocytes # (Manual) Monocytes # (Manual) Eosinophils # (Manual) Basophils # (Manual) Percent Retic PT INR Fibrinogen D-Dimer ABG pH POC ABG pCO2 POC ABG pO2 ABG pO2 ABG HCO3 ABG O2 Saturation ABG Base Excess ABG Hemoglobin ABG Oxyhemoglobin ABG Sodium ABG Potassium ABG Chloride ABG Glucose Oxyhemoglobin Carboxyhemoglobin Sodium 132 L Potassium 6.6 H* D Chloride 91.3 L Carbon Dioxide 17 L BUN 104 H Creatinine 9.3 H Glucose 199 H POC Glucose 172 H Hemoglobin A1c Calcium 8.3 L Phosphorus Magnesium AST 236 H ALT 93 H Alkaline Phosphatase 191 H Lactate Dehydrogenase C-Reactive Protein Total Protein Albumin 2.4 L Triglycerides Arterial Blood Glucose Arterial Blood Ionized Calcium Urine WBC (Auto) U Epithel Cells (Auto) Urine Creatinine Random Vancomycin Coronavirus (PCR) Crossmatch 04/02/21 04/02/21 04/02/21 04:00 04:00 05:00 WBC 31.0 H RBC 2.93 L Hgb 8.0 L Hct 24.7 L MCH 27 L MCHC RDW 19.2 H Plt Count 131 L Lymph % (Auto) [place] # (Auto) Eos # (Auto) Seg Neutrophils % Lymphocytes % (Manual) Eosinophils % (Manual) Basophils % (Manual) Nucleated RBC % Seg Neutrophils # Seg Neutrophils # Man Lymphocytes # (Manual) Monocytes # (Manual) Eosinophils # (Manual) Basophils # (Manual) Percent Retic PT 16.0 H INR 1.16 H Fibrinogen D-Dimer ABG pH POC ABG pCO2 POC ABG pO2 ABG pO2 ABG HCO3 ABG O2 Saturation ABG Base Excess ABG Hemoglobin ABG Oxyhemoglobin ABG Sodium ABG Potassium ABG Chloride ABG Glucose Oxyhemoglobin Carboxyhemoglobin Sodium 135 L Potassium 5.3 H Chloride 96.1 L Carbon Dioxide 18 L BUN 80 H Creatinine 6.8 H Glucose 174 H POC Glucose Hemoglobin A1c Calcium 7.7 L Phosphorus Magnesium AST 106 H ALT 60 H Alkaline Phosphatase Lactate Dehydrogenase C-Reactive Protein Total Protein 5.9 L Albumin 3.5 L Triglycerides 579 H Arterial Blood Glucose Arterial Blood Ionized Calcium Urine WBC (Auto) U Epithel Cells (Auto) Urine Creatinine Random Vancomycin Coronavirus (PCR) Crossmatch 04/02/21 04/02/21 04/02/21 05:09 08:55 11:06 WBC RBC Hgb Hct MCH MCHC RDW Plt Count Lymph % (Auto) [place] # (Auto) Eos # (Auto) Seg Neutrophils % Lymphocytes % (Manual) Eosinophils % (Manual) Basophils % (Manual) Nucleated RBC % Seg Neutrophils # Seg Neutrophils # Man Lymphocytes # (Manual) Monocytes # (Manual) Eosinophils # (Manual) Basophils # (Manual) Percent Retic PT INR Fibrinogen D-Dimer ABG pH 7.188 L POC ABG pCO2 58.3 H POC ABG pO2 132.8 H ABG pO2 ABG HCO3 ABG O2 Saturation ABG Base Excess ABG Hemoglobin 8.4 L ABG Oxyhemoglobin ABG Sodium ABG Potassium 5.0 H ABG Chloride 97.0 L ABG Glucose 156 H Oxyhemoglobin Carboxyhemoglobin 0.4 L Sodium Potassium Chloride Carbon Dioxide BUN Creatinine Glucose POC Glucose 148 H 167 H Hemoglobin A1c Calcium Phosphorus Magnesium AST ALT Alkaline Phosphatase Lactate Dehydrogenase C-Reactive Protein Total Protein Albumin Triglycerides Arterial Blood Glucose 156 H Arterial Blood Ionized Calcium 4.2 L Urine WBC (Auto) U Epithel Cells (Auto) Urine Creatinine Random Vancomycin Coronavirus (PCR) Crossmatch 04/02/21 04/02/21 04/03/21 17:57 20:40 00:28 WBC RBC Hgb Hct MCH MCHC RDW Plt Count Lymph % (Auto) [place] # (Auto) Eos # (Auto) Seg Neutrophils % Lymphocytes % (Manual) Eosinophils % (Manual) Basophils % (Manual) Nucleated RBC % Seg Neutrophils # Seg Neutrophils # Man Lymphocytes # (Manual) Monocytes # (Manual) Eosinophils # (Manual) Basophils # (Manual) Percent Retic PT INR Fibrinogen D-Dimer ABG pH POC ABG pCO2 POC ABG pO2 ABG pO2 111.9 H ABG HCO3 18.9 L ABG O2 Saturation ABG Base Excess -9.9 L ABG Hemoglobin ABG Oxyhemoglobin ABG Sodium ABG Potassium ABG Chloride ABG Glucose Oxyhemoglobin Carboxyhemoglobin Sodium Potassium Chloride Carbon Dioxide BUN Creatinine Glucose POC Glucose 205 H 217 H Hemoglobin A1c Calcium Phosphorus Magnesium AST ALT Alkaline Phosphatase Lactate Dehydrogenase C-Reactive Protein Total Protein Albumin Triglycerides Arterial Blood Glucose Arterial Blood Ionized Calcium Urine WBC (Auto) U Epithel Cells (Auto) Urine Creatinine Random Vancomycin Coronavirus (PCR) Crossmatch 04/03/21 04/03/21 04/03/21 03:39 04:30 04:30 WBC 31.1 H RBC 2.78 L Hgb 8.0 L Hct 24.0 L MCH MCHC RDW 19.0 H Plt Count Lymph % (Auto) [place] # (Auto) Eos # (Auto) Seg Neutrophils % Lymphocytes % (Manual) Eosinophils % (Manual) 27.0 H Basophils % (Manual) 2.0 H Nucleated RBC % Seg Neutrophils # Seg Neutrophils # Man 13.7 H Lymphocytes # (Manual) 8.4 H Monocytes # (Manual) Eosinophils # (Manual) 8.4 H Basophils # (Manual) 0.6 H Percent Retic PT INR Fibrinogen D-Dimer ABG pH POC ABG pCO2 POC ABG pO2 ABG pO2 ABG HCO3 ABG O2 Saturation ABG Base Excess ABG Hemoglobin ABG Oxyhemoglobin ABG Sodium ABG Potassium ABG Chloride ABG Glucose Oxyhemoglobin Carboxyhemoglobin Sodium 132 L Potassium 5.8 H Chloride 94.5 L Carbon Dioxide 16 L BUN 97 H Creatinine 7.7 H Glucose 230 H POC Glucose 201 H Hemoglobin A1c Calcium 7.6 L Phosphorus Magnesium AST 47 H ALT Alkaline Phosphatase 146 H Lactate Dehydrogenase C-Reactive Protein Total Protein 5.2 L Albumin 3.4 L Triglycerides Arterial Blood Glucose Arterial Blood Ionized Calcium Urine WBC (Auto) U Epithel Cells (Auto) Urine Creatinine Random Vancomycin Coronavirus (PCR) Crossmatch 04/03/21 04/03/21 04/03/21 04:30 08:31 11:29 WBC RBC Hgb Hct MCH MCHC RDW Plt Count Lymph % (Auto) [place] # (Auto) Eos # (Auto) Seg Neutrophils % Lymphocytes % (Manual) Eosinophils % (Manual) Basophils % (Manual) Nucleated RBC % Seg Neutrophils # Seg Neutrophils # Man Lymphocytes # (Manual) Monocytes # (Manual) Eosinophils # (Manual) Basophils # (Manual) Percent Retic PT INR Fibrinogen D-Dimer ABG pH 7.195 L* POC ABG pCO2 POC ABG pO2 ABG pO2 102.6 H ABG HCO3 ABG O2 Saturation ABG Base Excess -7.2 L ABG Hemoglobin 8.0 L ABG Oxyhemoglobin ABG Sodium ABG Potassium ABG Chloride ABG Glucose Oxyhemoglobin 94.7 L Carboxyhemoglobin Sodium Potassium Chloride Carbon Dioxide BUN Creatinine Glucose POC Glucose 230 H Hemoglobin A1c Calcium Phosphorus 10.30 H Magnesium AST ALT Alkaline Phosphatase Lactate Dehydrogenase C-Reactive Protein Total Protein Albumin Triglycerides Arterial Blood Glucose Arterial Blood Ionized Calcium Urine WBC (Auto) U Epithel Cells (Auto) Urine Creatinine Random Vancomycin Coronavirus (PCR) Crossmatch 04/03/21 04/03/21 04/04/21 16:53 20:45 05:00 WBC 28.8 H RBC 2.64 L Hgb 8.7 L Hct 22.2 L MCH 33 H MCHC 39 H* RDW 18.6 H Plt Count Lymph % (Auto) [place] # (Auto) Eos # (Auto) Seg Neutrophils % Lymphocytes % (Manual) Eosinophils % (Manual) Basophils % (Manual) Nucleated RBC % Seg Neutrophils # Seg Neutrophils # Man Lymphocytes # (Manual) Monocytes # (Manual) Eosinophils # (Manual) Basophils # (Manual) Percent Retic PT INR Fibrinogen D-Dimer ABG pH POC ABG pCO2 POC ABG pO2 ABG pO2 ABG HCO3 ABG O2 Saturation ABG Base Excess ABG Hemoglobin ABG Oxyhemoglobin ABG Sodium ABG Potassium ABG Chloride ABG Glucose Oxyhemoglobin 94.8 L Carboxyhemoglobin Sodium Potassium Chloride Carbon Dioxide BUN Creatinine Glucose POC Glucose 227 H Hemoglobin A1c Calcium Phosphorus Magnesium AST ALT Alkaline Phosphatase Lactate Dehydrogenase C-Reactive Protein Total Protein Albumin Triglycerides Arterial Blood Glucose Arterial Blood Ionized Calcium Urine WBC (Auto) U Epithel Cells (Auto) Urine Creatinine Random Vancomycin Coronavirus (PCR) Crossmatch 04/04/21 04/04/21 04/04/21 05:29 07:55 09:20 WBC RBC Hgb Hct MCH MCHC RDW Plt Count Lymph % (Auto) [place] # (Auto) Eos # (Auto) Seg Neutrophils % Lymphocytes % (Manual) Eosinophils % (Manual) Basophils % (Manual) Nucleated RBC % Seg Neutrophils # Seg Neutrophils # Man Lymphocytes # (Manual) Monocytes # (Manual) Eosinophils # (Manual) Basophils # (Manual) Percent Retic PT INR Fibrinogen D-Dimer ABG pH POC ABG pCO2 POC ABG pO2 ABG pO2 ABG HCO3 ABG O2 Saturation ABG Base Excess ABG Hemoglobin ABG Oxyhemoglobin ABG Sodium ABG Potassium ABG Chloride ABG Glucose Oxyhemoglobin Carboxyhemoglobin Sodium 133 L Potassium Chloride 91.0 L Carbon Dioxide 20 L BUN 75 H Creatinine 4.7 H Glucose 184 H POC Glucose 133 H Hemoglobin A1c Calcium 7.3 L Phosphorus Magnesium AST < 5 L ALT < 5 L Alkaline Phosphatase 200 H Lactate Dehydrogenase C-Reactive Protein Total Protein 5.6 L Albumin 2.9 L Triglycerides Arterial Blood Glucose Arterial Blood Ionized Calcium Urine WBC (Auto) U Epithel Cells (Auto) Urine Creatinine Random Vancomycin Coronavirus (PCR) Crossmatch See Detail 04/04/21 04/04/21 04/04/21 12:01 14:06 17:05 WBC RBC Hgb Hct MCH MCHC RDW Plt Count Lymph % (Auto) [place] # (Auto) Eos # (Auto) Seg Neutrophils % Lymphocytes % (Manual) Eosinophils % (Manual) Basophils % (Manual) Nucleated RBC % Seg Neutrophils # Seg Neutrophils # Man Lymphocytes # (Manual) Monocytes # (Manual) Eosinophils # (Manual) Basophils # (Manual) Percent Retic PT INR Fibrinogen D-Dimer ABG pH 7.162 L* POC ABG pCO2 POC ABG pO2 ABG pO2 91.3 H ABG HCO3 ABG O2 Saturation 94.8 L ABG Base Excess -4.0 L ABG Hemoglobin 7.6 L ABG Oxyhemoglobin ABG Sodium ABG Potassium ABG Chloride ABG Glucose Oxyhemoglobin 92.4 L Carboxyhemoglobin Sodium Potassium Chloride Carbon Dioxide BUN Creatinine Glucose POC Glucose 199 H 166 H Hemoglobin A1c Calcium Phosphorus Magnesium AST ALT Alkaline Phosphatase Lactate Dehydrogenase C-Reactive Protein Total Protein Albumin Triglycerides Arterial Blood Glucose Arterial Blood Ionized Calcium Urine WBC (Auto) U Epithel Cells (Auto) Urine Creatinine Random Vancomycin Coronavirus (PCR) Crossmatch 04/04/21 04/04/21 04/05/21 21:14 23:30 05:20 WBC RBC Hgb Hct MCH MCHC RDW Plt Count Lymph % (Auto) [place] # (Auto) Eos # (Auto) Seg Neutrophils % Lymphocytes % (Manual) Eosinophils % (Manual) Basophils % (Manual) Nucleated RBC % Seg Neutrophils # Seg Neutrophils # Man Lymphocytes # (Manual) Monocytes # (Manual) Eosinophils # (Manual) Basophils # (Manual) Percent Retic PT INR Fibrinogen D-Dimer ABG pH 7.257 L POC ABG pCO2 POC ABG pO2 ABG pO2 73.8 L ABG HCO3 ABG O2 Saturation 91.6 L ABG Base Excess -2.7 L ABG Hemoglobin 8.6 L ABG Oxyhemoglobin ABG Sodium ABG Potassium ABG Chloride ABG Glucose Oxyhemoglobin 89.1 L Carboxyhemoglobin Sodium 131 L Potassium Chloride 91.2 L Carbon Dioxide 17 L BUN 85 H Creatinine 5.1 H Glucose 183 H POC Glucose 158 H Hemoglobin A1c Calcium 7.4 L Phosphorus Magnesium AST ALT Alkaline Phosphatase 190 H Lactate Dehydrogenase 394 H C-Reactive Protein Total Protein 5.8 L Albumin 2.7 L Triglycerides Arterial Blood Glucose Arterial Blood Ionized Calcium Urine WBC (Auto) U Epithel Cells (Auto) Urine Creatinine Random Vancomycin Coronavirus (PCR) Crossmatch 04/05/21 04/05/21 04/05/21 05:20 05:20 05:24 WBC 30.8 H RBC 2.83 L Hgb 8.4 L Hct 24.4 L MCH MCHC 35 H RDW 18.9 H Plt Count Lymph % (Auto) [place] # (Auto) Eos # (Auto) Seg Neutrophils % Lymphocytes % (Manual) Eosinophils % (Manual) Basophils % (Manual) Nucleated RBC % Seg Neutrophils # Seg Neutrophils # Man Lymphocytes # (Manual) Monocytes # (Manual) Eosinophils # (Manual) Basophils # (Manual) Percent Retic PT INR Fibrinogen D-Dimer ABG pH POC ABG pCO2 POC ABG pO2 ABG pO2 ABG HCO3 ABG O2 Saturation ABG Base Excess ABG Hemoglobin ABG Oxyhemoglobin ABG Sodium ABG Potassium ABG Chloride ABG Glucose Oxyhemoglobin Carboxyhemoglobin Sodium Potassium Chloride Carbon Dioxide BUN Creatinine Glucose POC Glucose 162 H Hemoglobin A1c Calcium Phosphorus 9.40 H Magnesium AST ALT Alkaline Phosphatase Lactate Dehydrogenase C-Reactive Protein Total Protein Albumin Triglycerides Arterial Blood Glucose Arterial Blood Ionized Calcium Urine WBC (Auto) U Epithel Cells (Auto) Urine Creatinine Random Vancomycin Coronavirus (PCR) Crossmatch 04/05/21 04/05/21 04/05/21 11:31 12:23 21:40 WBC RBC Hgb Hct MCH MCHC RDW Plt Count Lymph % (Auto) [place] # (Auto) Eos # (Auto) Seg Neutrophils % Lymphocytes % (Manual) Eosinophils % (Manual) Basophils % (Manual) Nucleated RBC % Seg Neutrophils # Seg Neutrophils # Man Lymphocytes # (Manual) Monocytes # (Manual) Eosinophils # (Manual) Basophils # (Manual) Percent Retic PT INR Fibrinogen D-Dimer ABG pH 7.325 L POC ABG pCO2 POC ABG pO2 ABG pO2 65.6 L ABG HCO3 ABG O2 Saturation 91.2 L ABG Base Excess ABG Hemoglobin 6.7 L ABG Oxyhemoglobin ABG Sodium ABG Potassium ABG Chloride ABG Glucose Oxyhemoglobin 89.0 L Carboxyhemoglobin Sodium Potassium Chloride Carbon Dioxide BUN Creatinine Glucose POC Glucose 196 H 190 H Hemoglobin A1c Calcium Phosphorus Magnesium AST ALT Alkaline Phosphatase Lactate Dehydrogenase C-Reactive Protein Total Protein Albumin Triglycerides Arterial Blood Glucose Arterial Blood Ionized Calcium Urine WBC (Auto) U Epithel Cells (Auto) Urine Creatinine Random Vancomycin Coronavirus (PCR) Crossmatch 04/05/21 04/06/21 04/06/21 23:53 05:35 06:00 WBC RBC Hgb Hct MCH MCHC RDW Plt Count Lymph % (Auto) [place] # (Auto) Eos # (Auto) Seg Neutrophils % Lymphocytes % (Manual) Eosinophils % (Manual) Basophils % (Manual) Nucleated RBC % Seg Neutrophils # Seg Neutrophils # Man Lymphocytes # (Manual) Monocytes # (Manual) Eosinophils # (Manual) Basophils # (Manual) Percent Retic PT INR Fibrinogen D-Dimer ABG pH POC ABG pCO2 POC ABG pO2 ABG pO2 ABG HCO3 ABG O2 Saturation ABG Base Excess ABG Hemoglobin ABG Oxyhemoglobin ABG Sodium ABG Potassium ABG Chloride ABG Glucose Oxyhemoglobin Carboxyhemoglobin Sodium 132 L Potassium Chloride 90.7 L Carbon Dioxide 21 L BUN 74 H Creatinine 4.3 H Glucose 156 H POC Glucose 192 H 139 H Hemoglobin A1c Calcium 7.9 L Phosphorus 6.90 H D Magnesium AST < 5 L ALT < 5 L Alkaline Phosphatase 185 H Lactate Dehydrogenase C-Reactive Protein Total Protein 5.7 L Albumin 2.5 L Triglycerides Arterial Blood Glucose Arterial Blood Ionized Calcium Urine WBC (Auto) U Epithel Cells (Auto) Urine Creatinine Random Vancomycin Coronavirus (PCR) Crossmatch 04/06/21 04/06/21 04/06/21 06:00 11:27 18:01 WBC 26.7 H RBC 2.39 L Hgb 6.9 L Hct 20.1 L MCH MCHC RDW 18.7 H Plt Count Lymph % (Auto) [place] # (Auto) Eos # (Auto) Seg Neutrophils % Lymphocytes % (Manual) Eosinophils % (Manual) Basophils % (Manual) Nucleated RBC % Seg Neutrophils # Seg Neutrophils # Man Lymphocytes # (Manual) Monocytes # (Manual) Eosinophils # (Manual) Basophils # (Manual) Percent Retic PT INR Fibrinogen D-Dimer ABG pH POC ABG pCO2 POC ABG pO2 ABG pO2 ABG HCO3 ABG O2 Saturation ABG Base Excess ABG Hemoglobin ABG Oxyhemoglobin ABG Sodium ABG Potassium ABG Chloride ABG Glucose Oxyhemoglobin Carboxyhemoglobin Sodium Potassium Chloride Carbon Dioxide BUN Creatinine Glucose POC Glucose 166 H 159 H Hemoglobin A1c Calcium Phosphorus Magnesium AST ALT Alkaline Phosphatase Lactate Dehydrogenase C-Reactive Protein Total Protein Albumin Triglycerides Arterial Blood Glucose Arterial Blood Ionized Calcium Urine WBC (Auto) U Epithel Cells (Auto) Urine Creatinine Random Vancomycin Coronavirus (PCR) Crossmatch 04/06/21 04/06/21 04/06/21 20:50 23:43 Unknown WBC RBC Hgb Hct MCH MCHC RDW Plt Count Lymph % (Auto) [place] # (Auto) Eos # (Auto) Seg Neutrophils % Lymphocytes % (Manual) Eosinophils % (Manual) Basophils % (Manual) Nucleated RBC % Seg Neutrophils # Seg Neutrophils # Man Lymphocytes # (Manual) Monocytes # (Manual) Eosinophils # (Manual) Basophils # (Manual) Percent Retic PT INR Fibrinogen D-Dimer ABG pH 7.303 L POC ABG pCO2 POC ABG pO2 67.9 L ABG pO2 ABG HCO3 ABG O2 Saturation ABG Base Excess ABG Hemoglobin 7.6 L ABG Oxyhemoglobin 90.2 L ABG Sodium 128.6 L ABG Potassium ABG Chloride 97.0 L ABG Glucose 154 H Oxyhemoglobin Carboxyhemoglobin Sodium Potassium Chloride Carbon Dioxide BUN Creatinine Glucose POC Glucose 137 H Hemoglobin A1c Calcium Phosphorus Magnesium AST ALT Alkaline Phosphatase Lactate Dehydrogenase C-Reactive Protein Total Protein Albumin Triglycerides Arterial Blood Glucose 154 H Arterial Blood Ionized Calcium Urine WBC (Auto) 148.0 H U Epithel Cells (Auto) 102.0 H Urine Creatinine Random Vancomycin Coronavirus (PCR) Crossmatch 04/07/21 04/07/21 04/07/21 03:50 03:50 03:50 WBC 26.7 H RBC 2.66 L Hgb 7.6 L Hct 23.2 L MCH MCHC RDW 18.5 H Plt Count Lymph % (Auto) [place] # (Auto) Eos # (Auto) Seg Neutrophils % Lymphocytes % (Manual) 10.0 L Eosinophils % (Manual) 19.0 H Basophils % (Manual) Nucleated RBC % 2.0 H Seg Neutrophils # Seg Neutrophils # Man 17.9 H Lymphocytes # (Manual) Monocytes # (Manual) 1.1 H Eosinophils # (Manual) 5.1 H Basophils # (Manual) Percent Retic PT INR Fibrinogen D-Dimer 2178 H ABG pH POC ABG pCO2 POC ABG pO2 ABG pO2 ABG HCO3 ABG O2 Saturation ABG Base Excess ABG Hemoglobin ABG Oxyhemoglobin ABG Sodium ABG Potassium ABG Chloride ABG Glucose Oxyhemoglobin Carboxyhemoglobin Sodium 130 L Potassium Chloride 91.1 L Carbon Dioxide 19 L BUN 92 H Creatinine 4.2 H Glucose 213 H POC Glucose Hemoglobin A1c Calcium 7.8 L Phosphorus Magnesium AST ALT Alkaline Phosphatase Lactate Dehydrogenase C-Reactive Protein Total Protein Albumin Triglycerides Arterial Blood Glucose Arterial Blood Ionized Calcium Urine WBC (Auto) U Epithel Cells (Auto) Urine Creatinine Random Vancomycin Coronavirus (PCR) Crossmatch 04/07/21 04/07/21 04/07/21 04:00 05:42 11:10 WBC RBC Hgb Hct MCH MCHC RDW Plt Count Lymph % (Auto) [place] # (Auto) Eos # (Auto) Seg Neutrophils % Lymphocytes % (Manual) Eosinophils % (Manual) Basophils % (Manual) Nucleated RBC % Seg Neutrophils # Seg Neutrophils # Man Lymphocytes # (Manual) Monocytes # (Manual) Eosinophils # (Manual) Basophils # (Manual) Percent Retic PT INR Fibrinogen D-Dimer ABG pH POC ABG pCO2 POC ABG pO2 ABG pO2 ABG HCO3 ABG O2 Saturation ABG Base Excess ABG Hemoglobin ABG Oxyhemoglobin ABG Sodium ABG Potassium ABG Chloride ABG Glucose Oxyhemoglobin Carboxyhemoglobin Sodium 129 L Potassium 5.1 H Chloride 89.6 L Carbon Dioxide 18 L BUN 94 H Creatinine 4.2 H Glucose 213 H POC Glucose 177 H 136 H Hemoglobin A1c Calcium 7.9 L Phosphorus Magnesium AST ALT Alkaline Phosphatase 167 H Lactate Dehydrogenase C-Reactive Protein Total Protein Albumin 2.8 L Triglycerides Arterial Blood Glucose Arterial Blood Ionized Calcium Urine WBC (Auto) U Epithel Cells (Auto) Urine Creatinine Random Vancomycin Coronavirus (PCR) Crossmatch 04/07/21 04/07/21 04/08/21 16:19 21:30 02:32 WBC RBC Hgb Hct MCH MCHC RDW Plt Count Lymph % (Auto) [place] # (Auto) Eos # (Auto) Seg Neutrophils % Lymphocytes % (Manual) Eosinophils % (Manual) Basophils % (Manual) Nucleated RBC % Seg Neutrophils # Seg Neutrophils # Man Lymphocytes # (Manual) Monocytes # (Manual) Eosinophils # (Manual) Basophils # (Manual) Percent Retic PT INR Fibrinogen D-Dimer ABG pH 7.209 L POC ABG pCO2 64.8 H POC ABG pO2 ABG pO2 ABG HCO3 ABG O2 Saturation ABG Base Excess ABG Hemoglobin 7.9 L ABG Oxyhemoglobin 93.8 L ABG Sodium 128.8 L ABG Potassium 4.6 H ABG Chloride 97.0 L ABG Glucose 170 H Oxyhemoglobin Carboxyhemoglobin 1.6 H Sodium Potassium Chloride Carbon Dioxide BUN Creatinine Glucose POC Glucose 155 H 141 H Hemoglobin A1c Calcium Phosphorus Magnesium AST ALT Alkaline Phosphatase Lactate Dehydrogenase C-Reactive Protein Total Protein Albumin Triglycerides Arterial Blood Glucose 170 H Arterial Blood Ionized Calcium 4.2 L Urine WBC (Auto) U Epithel Cells (Auto) Urine Creatinine Random Vancomycin Coronavirus (PCR) Crossmatch 04/08/21 04/08/21 04/08/21 04:00 04:40 04:40 WBC 23.7 H RBC 2.51 L Hgb 6.9 L Hct 22.1 L MCH 27 L MCHC RDW 18.4 H Plt Count Lymph % (Auto) [place] # (Auto) Eos # (Auto) Seg Neutrophils % Lymphocytes % (Manual) Eosinophils % (Manual) Basophils % (Manual) Nucleated RBC % Seg Neutrophils # Seg Neutrophils # Man Lymphocytes # (Manual) Monocytes # (Manual) Eosinophils # (Manual) Basophils # (Manual) Percent Retic PT INR Fibrinogen D-Dimer 2696.79 H ABG pH POC ABG pCO2 POC ABG pO2 ABG pO2 ABG HCO3 ABG O2 Saturation ABG Base Excess ABG Hemoglobin ABG Oxyhemoglobin ABG Sodium ABG Potassium ABG Chloride ABG Glucose Oxyhemoglobin Carboxyhemoglobin Sodium 133 L Potassium 5.5 H Chloride 93.5 L Carbon Dioxide BUN 78 H Creatinine 3.5 H Glucose 171 H POC Glucose Hemoglobin A1c Calcium 8.1 L Phosphorus 9.30 H Magnesium AST ALT Alkaline Phosphatase Lactate Dehydrogenase C-Reactive Protein 26.10 H Total Protein Albumin Triglycerides 487 H Arterial Blood Glucose Arterial Blood Ionized Calcium Urine WBC (Auto) U Epithel Cells (Auto) Urine Creatinine Random Vancomycin Coronavirus (PCR) Crossmatch 04/08/21 04/08/21 04/08/21 09:55 11:37 13:55 WBC RBC Hgb Hct MCH MCHC RDW Plt Count Lymph % (Auto) [place] # (Auto) Eos # (Auto) Seg Neutrophils % Lymphocytes % (Manual) Eosinophils % (Manual) Basophils % (Manual) Nucleated RBC % Seg Neutrophils # Seg Neutrophils # Man Lymphocytes # (Manual) Monocytes # (Manual) Eosinophils # (Manual) Basophils # (Manual) Percent Retic PT INR Fibrinogen D-Dimer ABG pH 7.114 L* POC ABG pCO2 POC ABG pO2 ABG pO2 75.9 L ABG HCO3 26.2 H ABG O2 Saturation 90.6 L ABG Base Excess -3.6 L ABG Hemoglobin 8.2 L ABG Oxyhemoglobin ABG Sodium ABG Potassium ABG Chloride ABG Glucose Oxyhemoglobin 88.0 L Carboxyhemoglobin Sodium Potassium Chloride Carbon Dioxide BUN Creatinine Glucose POC Glucose 156 H Hemoglobin A1c Calcium Phosphorus Magnesium AST ALT Alkaline Phosphatase Lactate Dehydrogenase C-Reactive Protein Total Protein Albumin Triglycerides Arterial Blood Glucose Arterial Blood Ionized Calcium Urine WBC (Auto) U Epithel Cells (Auto) Urine Creatinine Random Vancomycin Coronavirus (PCR) Crossmatch See Detail 04/08/21 04/08/21 04/08/21 17:04 20:53 23:56 WBC RBC Hgb Hct MCH MCHC RDW Plt Count Lymph % (Auto) [place] # (Auto) Eos # (Auto) Seg Neutrophils % Lymphocytes % (Manual) Eosinophils % (Manual) Basophils % (Manual) Nucleated RBC % Seg Neutrophils # Seg Neutrophils # Man Lymphocytes # (Manual) Monocytes # (Manual) Eosinophils # (Manual) Basophils # (Manual) Percent Retic PT INR Fibrinogen D-Dimer ABG pH 7.207 L POC ABG pCO2 49.8 H POC ABG pO2 ABG pO2 ABG HCO3 ABG O2 Saturation ABG Base Excess ABG Hemoglobin 7.6 L ABG Oxyhemoglobin ABG Sodium 127.3 L ABG Potassium 5.7 H ABG Chloride 96.0 L ABG Glucose 185 H Oxyhemoglobin Carboxyhemoglobin Sodium Potassium Chloride Carbon Dioxide BUN Creatinine Glucose POC Glucose 178 H 189 H Hemoglobin A1c Calcium Phosphorus Magnesium AST ALT Alkaline Phosphatase Lactate Dehydrogenase C-Reactive Protein Total Protein Albumin Triglycerides Arterial Blood Glucose 185 H Arterial Blood Ionized Calcium 4.3 L Urine WBC (Auto) U Epithel Cells (Auto) Urine Creatinine Random Vancomycin Coronavirus (PCR) Crossmatch 04/09/21 04/09/21 04/09/21 04:00 04:00 05:24 WBC 21.9 H RBC 2.70 L Hgb 7.8 L Hct 24.1 L MCH MCHC RDW 18.3 H Plt Count Lymph % (Auto) [place] # (Auto) Eos # (Auto) Seg Neutrophils % Lymphocytes % (Manual) Eosinophils % (Manual) Basophils % (Manual) Nucleated RBC % Seg Neutrophils # Seg Neutrophils # Man Lymphocytes # (Manual) Monocytes # (Manual) Eosinophils # (Manual) Basophils # (Manual) Percent Retic PT INR Fibrinogen D-Dimer ABG pH POC ABG pCO2 POC ABG pO2 ABG pO2 ABG HCO3 ABG O2 Saturation ABG Base Excess ABG Hemoglobin ABG Oxyhemoglobin ABG Sodium ABG Potassium ABG Chloride ABG Glucose Oxyhemoglobin Carboxyhemoglobin Sodium 131 L Potassium 6.3 H* Chloride 93.0 L Carbon Dioxide 19 L BUN 98 H Creatinine 4.6 H Glucose 208 H POC Glucose 191 H Hemoglobin A1c Calcium 8.1 L Phosphorus Magnesium AST ALT Alkaline Phosphatase Lactate Dehydrogenase C-Reactive Protein Total Protein Albumin Triglycerides Arterial Blood Glucose Arterial Blood Ionized Calcium Urine WBC (Auto) U Epithel Cells (Auto) Urine Creatinine Random Vancomycin Coronavirus (PCR) Crossmatch 04/09/21 04/09/21 04/09/21 12:42 16:59 21:00 WBC RBC Hgb Hct MCH MCHC RDW Plt Count Lymph % (Auto) [place] # (Auto) Eos # (Auto) Seg Neutrophils % Lymphocytes % (Manual) Eosinophils % (Manual) Basophils % (Manual) Nucleated RBC % Seg Neutrophils # Seg Neutrophils # Man Lymphocytes # (Manual) Monocytes # (Manual) Eosinophils # (Manual) Basophils # (Manual) Percent Retic PT INR Fibrinogen D-Dimer ABG pH 7.192 L POC ABG pCO2 63.4 H POC ABG pO2 ABG pO2 ABG HCO3 ABG O2 Saturation ABG Base Excess ABG Hemoglobin 8.7 L ABG Oxyhemoglobin 92.9 L ABG Sodium 135.1 L ABG Potassium ABG Chloride ABG Glucose 208 H Oxyhemoglobin Carboxyhemoglobin Sodium Potassium Chloride Carbon Dioxide BUN Creatinine Glucose POC Glucose 198 H 218 H Hemoglobin A1c Calcium Phosphorus Magnesium AST ALT Alkaline Phosphatase Lactate Dehydrogenase C-Reactive Protein Total Protein Albumin Triglycerides Arterial Blood Glucose 208 H Arterial Blood Ionized Calcium Urine WBC (Auto) U Epithel Cells (Auto) Urine Creatinine Random Vancomycin Coronavirus (PCR) Crossmatch 04/09/21 04/10/21 04/10/21 23:31 04:45 04:45 WBC 18.0 H RBC 2.65 L Hgb 7.4 L Hct 23.3 L MCH MCHC RDW 18.5 H Plt Count Lymph % (Auto) [place] # (Auto) Eos # (Auto) Seg Neutrophils % Lymphocytes % (Manual) Eosinophils % (Manual) Basophils % (Manual) Nucleated RBC % Seg Neutrophils # Seg Neutrophils # Man Lymphocytes # (Manual) Monocytes # (Manual) Eosinophils # (Manual) Basophils # (Manual) Percent Retic PT INR Fibrinogen D-Dimer ABG pH POC ABG pCO2 POC ABG pO2 ABG pO2 ABG HCO3 ABG O2 Saturation ABG Base Excess ABG Hemoglobin ABG Oxyhemoglobin ABG Sodium ABG Potassium ABG Chloride ABG Glucose Oxyhemoglobin Carboxyhemoglobin Sodium Potassium 5.5 H Chloride Carbon Dioxide 21 L BUN 83 H Creatinine 3.4 H Glucose 211 H POC Glucose 162 H Hemoglobin A1c Calcium Phosphorus Magnesium AST ALT Alkaline Phosphatase Lactate Dehydrogenase C-Reactive Protein Total Protein Albumin Triglycerides Arterial Blood Glucose Arterial Blood Ionized Calcium Urine WBC (Auto) U Epithel Cells (Auto) Urine Creatinine Random Vancomycin Coronavirus (PCR) Crossmatch 04/10/21 05:01 WBC RBC Hgb Hct MCH MCHC RDW Plt Count Lymph % (Auto) [place] # (Auto) Eos # (Auto) Seg Neutrophils % Lymphocytes % (Manual) Eosinophils % (Manual) Basophils % (Manual) Nucleated RBC % Seg Neutrophils # Seg Neutrophils # Man Lymphocytes # (Manual) Monocytes # (Manual) Eosinophils # (Manual) Basophils # (Manual) Percent Retic PT INR Fibrinogen D-Dimer ABG pH POC ABG pCO2 POC ABG pO2 ABG pO2 ABG HCO3 ABG O2 Saturation ABG Base Excess ABG Hemoglobin ABG Oxyhemoglobin ABG Sodium ABG Potassium ABG Chloride ABG Glucose Oxyhemoglobin Carboxyhemoglobin Sodium Potassium Chloride Carbon Dioxide BUN Creatinine Glucose POC Glucose 183 H Hemoglobin A1c Calcium Phosphorus Magnesium AST ALT Alkaline Phosphatase Lactate Dehydrogenase C-Reactive Protein Total Protein Albumin Triglycerides Arterial Blood Glucose Arterial Blood Ionized Calcium Urine WBC (Auto) U Epithel Cells (Auto) Urine Creatinine Random Vancomycin Coronavirus (PCR) Crossmatch Allied health notes reviewed: RT
--- NOTE | 2021-04-10 13:30 | Progress Note ---
Assessment and Plan Impression/Plan: #Acute kidney injury: dialysis dependent - s/p HD on 04/09, did have UF of 3L - HD/UF again today, will attempt more fluid removal as tolerated given anasarca, may benefit from daily dialysis if tolerated - daily lytes - Assess daily for needs for additional sessions pending hemodynamic stability - Strict input and output - Avoid nephrotoxins - Renally dose medications - Keep MAP > 65 #Hyperkalemia: K 5.5 today, HD today #Respiratory failure Covid 19 infection currently intubated UF as tolerated with HD, limited by hemodynamic instability #Hyperphosphatemia to be monitored Dialysis has been initiated #Hyponatremia: stable #Anemia--Hematology plans noted, plasma exchange noted #Overall prognosis remains poor, palliative care appropriate Subjective Date of service: 04/10/21 Principal diagnosis: Ac hypoxemic resp failure; AE-Asthma; SAI; Crohn's; COVID- 19; Pneumonia Interval history: Remains intubated, FiO2 60%, on 3 pressors. HR in 100s this AM. Objective - Exam Narrative Exam: General appearance: Intubated and sedated, obese Head: NC/AT Neck: Absent: masses or JVD, cervical LAD Respiratory: coarse mechanical sounds Heart: Present: S1 & S2, mildly tachycardic Extremities: pulses intact, pulses symmetrical; 3+ edema Peripheral Pulses: within normal limits General gastrointestinal: soft, non-tender Integumentary: dry Neurologic: sedated - Vital Signs Vital signs: Vital Signs - 12hr 04/10/21 04/10/21 04/10/21 01:31 01:45 02:01 Temperature Pulse Rate 114 H 117 H 119 H Pulse Rate [ Anterior Bilateral Throughout] Pulse Rate [ From Monitor] Respiratory 31 H 21 27 H Rate Respiratory Rate [Anterior Bilateral Throughout] Blood Pressure O2 Sat by Pulse 99 99 99 Oximetry 04/10/21 04/10/21 04/10/21 02:15 02:31 02:45 Temperature Pulse Rate 118 H 116 H 114 H Pulse Rate [ Anterior Bilateral Throughout] Pulse Rate [ From Monitor] Respiratory 30 H 31 H 19 Rate Respiratory Rate [Anterior Bilateral Throughout] Blood Pressure O2 Sat by Pulse 100 99 99 Oximetry 04/10/21 04/10/21 04/10/21 03:01 03:15 03:31 Temperature Pulse Rate 116 H 114 H 115 H Pulse Rate [ Anterior Bilateral Throughout] Pulse Rate [ From Monitor] Respiratory 26 H 24 30 H Rate Respiratory Rate [Anterior Bilateral Throughout] Blood Pressure O2 Sat by Pulse 98 99 98 Oximetry 04/10/21 04/10/21 04/10/21 03:41 03:45 03:55 Temperature 99.7 F H Pulse Rate 113 H 114 H Pulse Rate [ Anterior Bilateral Throughout] Pulse Rate [ From Monitor] Respiratory 24 Rate Respiratory Rate [Anterior Bilateral Throughout] Blood Pressure 106/58 O2 Sat by Pulse 98 97 Oximetry 04/10/21 04/10/21 04/10/21 04:00 04:01 04:15 Temperature Pulse Rate 119 H 119 H 119 H Pulse Rate [ Anterior Bilateral Throughout] Pulse Rate [ 119 H From Monitor] Respiratory 30 H 24 21 Rate Respiratory Rate [Anterior Bilateral Throughout] Blood Pressure O2 Sat by Pulse 97 99 99 Oximetry 04/10/21 04/10/21 04/10/21 04:31 04:45 05:01 Temperature Pulse Rate 116 H 116 H 117 H Pulse Rate [ Anterior Bilateral Throughout] Pulse Rate [ From Monitor] Respiratory 28 H 18 15 Rate Respiratory Rate [Anterior Bilateral Throughout] Blood Pressure O2 Sat by Pulse 99 99 100 Oximetry 04/10/21 04/10/21 04/10/21 05:15 05:31 05:45 Temperature Pulse Rate 113 H 117 H 115 H Pulse Rate [ Anterior Bilateral Throughout] Pulse Rate [ From Monitor] Respiratory 21 17 31 H Rate Respiratory Rate [Anterior Bilateral Throughout] Blood Pressure O2 Sat by Pulse 100 100 100 Oximetry 04/10/21 04/10/21 04/10/21 06:01 06:15 06:31 Temperature Pulse Rate 114 H 111 H 113 H Pulse Rate [ Anterior Bilateral Throughout] Pulse Rate [ From Monitor] Respiratory 22 30 H 30 H Rate Respiratory Rate [Anterior Bilateral Throughout] Blood Pressure O2 Sat by Pulse 100 100 100 Oximetry 04/10/21 04/10/21 04/10/21 06:45 07:01 07:09 Temperature 99.4 F Pulse Rate 115 H 114 H Pulse Rate [ Anterior Bilateral Throughout] Pulse Rate [ From Monitor] Respiratory 21 30 H Rate Respiratory Rate [Anterior Bilateral Throughout] Blood Pressure O2 Sat by Pulse 100 100 Oximetry 04/10/21 04/10/21 04/10/21 07:15 07:31 07:45 Temperature Pulse Rate 114 H 115 H 118 H Pulse Rate [ Anterior Bilateral Throughout] Pulse Rate [ From Monitor] Respiratory 30 H 20 20 Rate Respiratory Rate [Anterior Bilateral Throughout] Blood Pressure O2 Sat by Pulse 100 100 100 Oximetry 04/10/21 04/10/21 04/10/21 08:00 08:01 08:15 Temperature Pulse Rate 117 H 119 H 119 H Pulse Rate [ Anterior Bilateral Throughout] Pulse Rate [ 119 H From Monitor] Respiratory 18 18 13 Rate Respiratory Rate [Anterior Bilateral Throughout] Blood Pressure O2 Sat by Pulse 100 100 100 Oximetry 04/10/21 04/10/21 04/10/21 08:31 08:45 09:01 Temperature Pulse Rate 118 H 121 H 121 H Pulse Rate [ Anterior Bilateral Throughout] Pulse Rate [ From Monitor] Respiratory 12 12 13 Rate Respiratory Rate [Anterior Bilateral Throughout] Blood Pressure O2 Sat by Pulse 100 99 100 Oximetry 04/10/21 04/10/21 04/10/21 09:04 09:05 09:15 Temperature Pulse Rate 121 H 119 H Pulse Rate [ 119 H Anterior Bilateral Throughout] Pulse Rate [ From Monitor] Respiratory 20 Rate Respiratory 30 H Rate [Anterior Bilateral Throughout] Blood Pressure 113/59 O2 Sat by Pulse 100 100 Oximetry 04/10/21 04/10/21 04/10/21 09:31 09:45 10:01 Temperature Pulse Rate 120 H 121 H 123 H Pulse Rate [ Anterior Bilateral Throughout] Pulse Rate [ From Monitor] Respiratory 19 18 19 Rate Respiratory Rate [Anterior Bilateral Throughout] Blood Pressure O2 Sat by Pulse 100 99 100 Oximetry 04/10/21 04/10/21 04/10/21 10:15 10:31 10:45 Temperature Pulse Rate 124 H 127 H 127 H Pulse Rate [ Anterior Bilateral Throughout] Pulse Rate [ From Monitor] Respiratory 19 16 17 Rate Respiratory Rate [Anterior Bilateral Throughout] Blood Pressure O2 Sat by Pulse 99 98 97 Oximetry 04/10/21 04/10/21 04/10/21 11:01 11:15 11:31 Temperature Pulse Rate 128 H 128 H 127 H Pulse Rate [ Anterior Bilateral Throughout] Pulse Rate [ From Monitor] Respiratory 16 17 17 Rate Respiratory Rate [Anterior Bilateral Throughout] Blood Pressure O2 Sat by Pulse 96 96 93 Oximetry 04/10/21 04/10/21 04/10/21 11:45 12:00 12:01 Temperature Pulse Rate 127 H 126 H 126 H Pulse Rate [ Anterior Bilateral Throughout] Pulse Rate [ 126 H From Monitor] Respiratory 17 17 17 Rate Respiratory Rate [Anterior Bilateral Throughout] Blood Pressure O2 Sat by Pulse 93 92 92 Oximetry 04/10/21 12:15 Temperature Pulse Rate 127 H Pulse Rate [ Anterior Bilateral Throughout] Pulse Rate [ From Monitor] Respiratory 17 Rate Respiratory Rate [Anterior Bilateral Throughout] Blood Pressure O2 Sat by Pulse 90 Oximetry - Lab 04/10/21 04:45 04/10/21 04:45 Most recent lab results ABG pH 7.192 (7.320-7.450) L 04/09/21 21:00 ABG pCO2 83.8 mm Hg 04/08/21 09:55 ABG pO2 75.9 mm Hg (80.0-90.0) L 04/08/21 09:55 ABG HCO3 26.2 mmol/L (20.0-26.0) H 04/08/21 09:55 ABG O2 Saturation 94.0 (0-100) 04/09/21 21:00 Calcium 8.7 mg/dL (8.4-10.2) 04/10/21 04:45 Phosphorus 9.30 mg/dL (2.5-4.5) H 04/08/21 04:00 Magnesium 2.00 mg/dL (1.7-2.3) 04/08/21 04:00 Urine Creatinine 40.1 mg/dL (0.1-20.0) H 03/14/21 17:50 Urine Sodium 124 mmol/L 03/14/21 17:50 Medications & Allergies - Medications Allergies/Adverse Reactions: Allergies oxycodone HCl [From Percocet] Allergy (Severe, Verified 03/30/21 14:01) Swelling cefepime Allergy (Verified 04/06/21 13:38) Rash hydrocodone bitartrate [From Vicodin] Allergy (Verified 03/31/21 08:20) Swelling ALLERGY TO TYLENOL VS OXYCODONE ACTIVE ORDER REMOVED FROM [facility] SINCE UNABLE TO CONFIRM WITH FAMILY Home Medications: Home Medications Medication Instructions Recorded Confirmed Last Taken Type Chlorhexidine Mouthwash [Peridex] 15 ml MM BID #1 bottle 10/11/20 03/13/21 Unknown Rx Clindamycin [Clindamycin CAP] 300 mg PO Q8H #21 cap 10/11/20 03/13/21 Unknown Rx Naproxen 500 mg PO Q12H PRN #12 tablet 10/11/20 03/13/21 Unknown Rx Butalb/Acetamin/Caff 50-325-40 1 - 2 tab PO Q6HR PRN #15 tab 12/05/20 03/13/21 Unknown Rx [Fioricet 50-325-40] Famotidine [Pepcid] 20 mg PO BID #30 tablet 12/05/20 03/13/21 Unknown Rx Ketorolac [Toradol] 10 mg PO Q8H PRN #20 tablet 12/05/20 03/13/21 Unknown Rx Ondansetron [Zofran Odt] 4 mg PO Q6HR PRN #20 tab.rapdis 12/05/20 03/13/21 Unknown Rx Albuterol Sulfate [Proair 90 mcg IH Q4HR PRN #2 aer.[email or web address] 01/01/21 03/13/21 Unknown Rx Respiclick] Mupirocin [Bactroban 2% OINT] 1 applic TP BID 7 Days #1 tube 01/01/21 03/13/21 Unknown Rx Triamcinolone Aceton 0.1% (Nf) 1 applic TP BID 14 Days #1 tube 01/01/21 03/13/21 Unknown Rx [Kenalog (NF)] predniSONE [Deltasone] 40 mg PO QDAY #8 tab 01/01/21 03/13/21 Unknown Rx Active Medications: Generic Name Dose Route Start Last Admin Trade Name Freq PRN Reason Stop Dose Admin Acetaminophen 650 mg 03/31/21 12:41 04/08/21 23:15 Acetaminophen 325 Mg/10.15 Ml Oral Liqd Unit Dose FEEDTUBE 650 mg Q6H PRN Administration TEMP >/=100.4 Albumin Human 25 gm 04/01/21 08:19 04/01/21 16:23 Albumin Human 25% (25 Gm/100 Ml) Inj IV 25 gm KARLOS PRN Administration Hypotension Albuterol 2.5 mg 03/19/21 00:53 Albuterol 2.5 Mg/3 Ml Nebu IH Q4HRT PRN Shortness Of Breath Albuterol/Ipratropium 1 ampul 03/19/21 08:00 04/10/21 09:05 Ipratropium/Albuterol Sulfate 3 Ml Ampul.Neb IH 1 ampul Q6HRT INESSA Administration Lipase/Protease/Amylase 1 each 04/09/21 17:17 Lipase 10,500/Protease 25,000/Amylase 43,750 (Units) Dr Cap FEEDTUBE PRN PRN For Clogged Feeding Tube Apixaban 2.5 mg 03/29/21 13:00 04/10/21 09:59 Apixaban 2.5 Mg Tab PO 2.5 mg Q12HR INESSA Administration Protocol Ascorbic Acid 500 mg 03/14/21 22:00 04/10/21 09:59 Ascorbic Acid 500 Mg Tab PO 500 mg BID INESSA Administration Calcium Acetate 1,334 mg 04/03/21 20:00 04/10/21 08:08 Calcium Acetate 667 Mg Cap FEEDTUBE 1,334 mg TID INESSA Administration Dextrose 50 ml 03/14/21 11:02 03/15/21 11:40 Dextrose 50% In Water (25gm) 50 Ml Syringe IV 50 ml Q30MIN PRN Administration Hypoglycemia Protocol Famotidine 10 mg 03/17/21 22:00 04/10/21 09:59 Famotidine 10 Mg Tab PO 10 mg BID INESSA Administration Fentanyl 50 mcg 03/15/21 10:43 04/05/21 21:32 Fentanyl 100 Mcg/2 Ml Inj IV 50 mcg Q10MIN PRN Administration ANALGESIA Hydrocortisone Sodium Succinate 100 mg 04/10/21 00:00 04/10/21 08:08 Hydrocortisone Sod Succ 100 Mg/2 Ml Vial IV 100 mg Q8H INESSA Administration Hydromorphone HCl 1 mg 04/06/21 11:32 04/06/21 17:01 Hydromorphone 1 Mg/1 Ml Inj IV 04/13/21 11:31 1 mg Q4H PRN Administration Pain , Severe (7-10) Hydrophilic Ointment 1 applic 03/14/21 17:50 Lip Therapy Vaseline TP Q2HR PRN Dry Lips Fentanyl Citrate 2,000 mcg in 100 mls @ 6.872 mls/hr 03/15/21 11:00 04/10/21 13:26 Fentanyl Drip Premix IV 4 mcg/kg/hr TITR INESSA 27.488 mls/hr Administration Protocol 1 MCG/KG/HR Sodium Chloride 500 mls @ 1 mls/hr 03/16/21 17:19 Nacl 0.9% 500 Ml IV DIRECT PRN ARTERIAL LINE FLUSH NORepinephrine/NS 8 MG-250 ML 8 mg in 250 mls @ 3.75 mls/hr 03/23/21 11:00 04/10/21 12:15 Norepinephrine/Ns 8 Mg-250 Ml (Double Conc) IV 8 mcg/min TITRATE INESSA 15 mls/hr Titration Protocol 2 MCG/MIN Midazolam HCl 100 mg/ Sodium 100 mls @ 1 mls/hr 03/30/21 15:00 04/10/21 07:34 Chloride IV 6 mg/hr TITR INESSA 6 mls/hr Administration Protocol 1 MG/HR Vasopressin 20 unit/ Sodium 101 mls @ 9.09 mls/hr 03/30/21 20:00 04/10/21 13:26 Chloride IV 0.03 units/min TITR INESSA 9.09 mls/hr Administration 0.03 UNITS/MIN Phenylephrine HCl 100 mg/ 100 mls @ 3 mls/hr 03/31/21 04:00 04/06/21 07:58 Sodium Chloride IV 0 mcg/min TITR INESSA 0 mls/hr Titration Protocol 50 MCG/MIN Sodium Chloride 100 mls @ 999 mls/hr 04/01/21 08:19 Nacl 0.9% IV KARLOS PRN Hypotension Sodium Bicarbonate 150 meq/ 1,150 mls @ 75 mls/hr 04/02/21 22:00 04/07/21 16:21 Dextrose IV Infused DIRECT INESSA Infusion Levofloxacin/Dextrose 750 mg in 150 mls @ 100 mls/hr 04/06/21 14:30 04/08/21 14:19 Levaquin 750mg/150ml IV 100 mls/hr Q48H INESSA Administration Protocol Propofol 1,000 mg in 100 mls @ 4.26 mls/hr 04/07/21 13:00 04/10/21 13:26 Diprivan 10 Mg/Ml IV 10 mcg/kg/min TITR INESSA 8.52 mls/hr Administration Protocol 5 MCG/KG/MIN Meropenem 500 mg in 50 mls @ 50 mls/hr 04/08/21 11:00 04/10/21 10:00 Merrem/Ns 500 Mg/50 Ml IV 50 mls/hr Q12H INESSA Administration Micafungin Sodium 100 mg/ 100 mls @ 100 mls/hr 04/09/21 17:00 04/09/21 18:43 Sodium Chloride IV 100 mls/hr Q24H INESSA Administration Protocol Insulin Human Lispro 0 unit 03/14/21 12:00 04/10/21 12:32 Insulin Lispro 100 Unit/Ml SUB-Q Not Given Q6HR [facility] Protocol Lorazepam 1 mg 03/13/21 19:40 03/30/21 19:58 Lorazepam 2 Mg/Ml Vial IV 1 mg Q4H PRN Administration Anxiety Multi-Ingred Cream/Lotion/Oil/Oint 1 applic 03/14/21 17:50 04/02/21 14:31 Mineral Oil/Petrolatum, White Ophth Oint 3.5 Gm OU 1 applic Q4HR PRN Administration Dry Eye(s) Ondansetron HCl 4 mg 03/13/21 19:30 03/21/21 12:05 Ondansetron 4 Mg/2 Ml Inj IV 4 mg Q8H PRN Administration Nausea And Vomiting Quetiapine Fumarate 300 mg 04/06/21 22:00 04/10/21 09:59 Quetiapine 100 Mg Tab PO 300 mg BID INESSA Administration Senna/Docusate Sodium 1 tab 03/14/21 22:00 04/10/21 09:59 Sennosides/Docusate Sodium 8.6/50 Mg Tab FEEDTUBE 1 tab BID INESSA Administration Simple Syrup 15 ml 04/09/21 17:17 Simple Syrup 15 Ml FEEDTUBE PRN PRN Hypoglycemia Simple Syrup 30 ml 04/09/21 17:17 Simple Syrup 15 Ml FEEDTUBE PRN PRN Hypoglycemia Sodium Bicarbonate 325 mg 03/15/21 11:42 03/21/21 17:21 Sodium Bicarbonate 325 Mg Tab FEEDTUBE 325 mg PRN PRN Administration For Clogged Feeding Tube Sodium Bicarbonate 325 mg 04/09/21 17:17 Sodium Bicarbonate 325 Mg Tab FEEDTUBE PRN PRN For Clogged Feeding Tube Sodium Chloride 10 ml 03/13/21 22:00 04/10/21 10:00 Sodium Chloride 0.9% 10 Ml Flush Syringe IV 10 ml BID INESSA Administration Sodium Chloride 10 ml 03/13/21 19:30 Sodium Chloride 0.9% 10 Ml Flush Syringe IV PRN PRN LINE FLUSH Zinc Sulfate 220 mg 03/14/21 22:00 04/10/21 09:59 Zinc Sulfate 220 Mg Cap PO 220 mg BID INESSA Administration
--- NOTE | 2021-04-10 14:29 | Progress Note ---
Assessment and Plan Cultures: SARS CoV2 PCR: Positive 03/13/2021 blood culture: No growth Resp cultures 03/14/2021: MSSA 03/23/2021 blood culture: No growth 03/23/2021 sputum culture: Usual respiratory maury 03/29/2021 blood culture: no growth 04/06/2021 blood culture: In process 04/06/2021 endotracheal aspirate culture: E faecalis 04/06/2021 urine culture: No growth A/P: 31-year-old female with asthma, morbid obesity, Crohn's disease admitted with cough and shortness of breath: #Septic shock: s/p abx. Persistently febrile, on multiple pressors. Has previously completed Ancef followed by Cefepime, and now on Aztreonam, Vancomycin and levofloxacin. #Bilateral pneumonia: Secondary to COVID-19. Severe disease, then developed MSSA in the lungs. s/p Actemra 03/15/2021, completed steroids for COVID. D-dimer very high initially, which has shown improvement. #Acute hypoxic respiratory failure: on the vent. #Rash with eosinophilia: Question of drug reaction, remains off Cefepime. 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 #Acute renal failure: progressive. Nephrology following, on HD. #Acute asthma exacerbation #Morbid obesity Recs: -f/u new cultures: blood culture -Micafungin added yesterday -continue IV Aztreonam, vancomycin and levofloxacin -on steroids per ICU -consider CT chest, abdomen and pelvis when feasible -extremely poor prognosis Shantel Biggs MD [facility] ([facility]) Office [phone] Subjective Principal diagnosis: Ac hypoxemic resp failure; AE-Asthma; SAI; Crohn's; COVID- 19; Pneumonia Interval history: Remains intubated. Fever improving. Objective - Exam Narrative Exam: General appearance: Sedated, intubated Eyes: anicteric sclerae, moist conjunctivae; no lid-lag; PERRLA HENT: Normocephalic, Atraumatic; normal external ears, nares open, oropharynx ET tube limited Neck: supple, tracheal midline, no JVD Lungs: Diminished breath sounds bilaterally CV: Tachycardic Abdomen: Obese soft Extremities: Marked bilateral upper extremity and lower extremity edema Skin: Extensive desquamative rash of the upper extremities and shoulders Psych: Sedated Neuro: Sedated - Constitutional Vitals: Vital Signs Temp Pulse Resp BP Pulse Ox 99.4 F 132 H 17 96/60 94 04/10/21 07:09 04/10/21 13:45 04/10/21 12:15 04/10/21 13:45 04/10/21 13:45 Temperature -Last 24 Hours Temperature 99.4 F Temperature 99.7 F Temperature 99.9 F Temperature 98.4 F Temperature 98.1 F Temperature 99.0 F Temperature 99.0 F - Labs CBC & Chem 7: 04/10/21 04:45 04/10/21 04:45 Labs: Abnormal lab results 04/09/21 04/09/21 04/09/21 Range/Units 16:59 21:00 23:31 WBC (4.5-11.0) K/mm3 RBC (3.65-5.03) M/mm3 Hgb (10.1-14.3) gm/dl Hct (30.3-42.9) % RDW (13.2-15.2) % ABG pH 7.192 L (7.320-7.450) POC ABG pCO2 63.4 H (32.0-48.0) mmHg ABG Hemoglobin 8.7 L (12.0-17.5) ABG Oxyhemoglobin 92.9 L (94-98) ABG Sodium 135.1 L (136.0-145.0) mmol/L ABG Glucose 208 H (65-95) mg/dL Potassium (3.6-5.0) mmol/L Carbon Dioxide (22-30) mmol/L BUN (7-17) mg/dL Creatinine (0.6-1.2) mg/dL Glucose (65-100) mg/dL POC Glucose 218 H 162 H (70-105) mg/dL Arterial Blood Glucose 208 H (65-95) mg/dL 04/10/21 04/10/21 04/10/21 Range/Units 04:45 04:45 05:01 WBC 18.0 H (4.5-11.0) K/mm3 RBC 2.65 L (3.65-5.03) M/mm3 Hgb 7.4 L (10.1-14.3) gm/dl Hct 23.3 L (30.3-42.9) % RDW 18.5 H (13.2-15.2) % ABG pH (7.320-7.450) POC ABG pCO2 (32.0-48.0) mmHg ABG Hemoglobin (12.0-17.5) ABG Oxyhemoglobin (94-98) ABG Sodium (136.0-145.0) mmol/L ABG Glucose (65-95) mg/dL Potassium 5.5 H (3.6-5.0) mmol/L Carbon Dioxide 21 L (22-30) mmol/L BUN 83 H (7-17) mg/dL Creatinine 3.4 H (0.6-1.2) mg/dL Glucose 211 H (65-100) mg/dL POC Glucose 183 H (70-105) mg/dL Arterial Blood Glucose (65-95) mg/dL
[2021-04-10] MEDS: MICAFUNGIN 100 MG in SODIUM CHLORIDE 0.9% 100 ML IV SCH (16:15)
[2021-04-10] MEDS: ACETAMINOPHEN 325 MG/10.15 ML ORAL LIQD UNIT DOSE FEEDTUBE PRN (22:02)
[2021-04-10] MEDS: MINERAL OIL/PETROLATUM, WHITE OPHTH OINT 3.5 GM OU PRN (22:03)
[2021-04-11] MEDS: INSULIN LISPRO 100 UNIT/ML SUB-Q SCH ×4 (00:48→17:56)
[2021-04-11] MEDS: HYDROCORTISONE SOD SUCC 100 MG/2 ML VIAL IV SCH ×3 (00:49→16:14)
[2021-04-11] MEDS: fentaNYL DRIP Premix 2,000 MCG/100 ML BAG IV SCH ×7 (03:03→23:22)
[2021-04-11] MEDS: ACETAMINOPHEN 325 MG/10.15 ML ORAL LIQD UNIT DOSE FEEDTUBE PRN ×3 (04:46→17:36)
[2021-04-11 05:19] LABS: Hematocrit 22.6 % (30.3-42.9); Mean Corpuscular HGB Conc 31 % (30-34); Mean Corpuscular Volume 89 fl (79-97); Platelet Count 176 K/mm3 (140-440); Red Blood Count 2.53 M/mm3 (3.65-5.03); Red Cell Distribution Width 18.4 % (13.2-15.2)
[2021-04-11] MEDS: CALCIUM ACETATE 667 MG CAP FEEDTUBE SCH ×3 (08:06→20:32)
[2021-04-11] MEDS: QUEtiapine 100 MG TAB PO SCH ×2 (09:08→21:51)
[2021-04-11] MEDS: SENNOSIDES/DOCUSATE SODIUM 8.6/50 MG TAB FEEDTUBE SCH ×2 (09:08→21:50)
[2021-04-11] MEDS: FAMOTIDINE 10 MG TAB PO SCH ×2 (09:09→21:50)
[2021-04-11] MEDS: ASCORBIC ACID 500 MG TAB PO SCH ×2 (09:09→21:50)
[2021-04-11] MEDS: APIXABAN 2.5 MG TAB PO SCH (09:09)
[2021-04-11] MEDS: ZINC SULFATE 220 MG CAP PO SCH ×2 (09:09→21:50)
[2021-04-11] MEDS: IPRATROPIUM/ALBUTEROL SULFATE 3 ML AMPUL.NEB IH SCH ×4 (09:22→20:55)
[2021-04-11] MEDS: MEROPENEM/NS 500 MG/50 ML 500 MG/50 ML BAG IV SCH ×2 (11:42→23:45)
--- NOTE | 2021-04-11 12:03 | Progress Note ---
Assessment and Plan Assessment and plan: This is a 31-year-old female with asthma, morbid obesity and Crohn's disease admitted for Acute hypxemic respiratory failure 2/2 COVID PNA requiring ventilatory support and acute renal failure now on HD. Hospital Course to Date: 03/14/21- Patient is s/p intubation from this morning, sedated on propofol and fentanyl RASS -3 to -4. ETT above the clavicles advanced by 2cc. Continue nebs and IV steroids per CCM. COVID swab pending. Hyperkalemia improved, X1 dose of kayaxalate ordered. Low BP and low urine output this am, fluid bolus challenge, 500cc of NS bolus given. Continue to monitor electrolytes and renal function, repeat BMP this afternoon. 03/15: Patient's renal function noted to be significantly worse today, patient was hyperkalemic and this was medically treated. Patient initiated on hemodialysis today. infectious disease was consulted today. 03/16: No acute events reported overnight, patient received hemodialysis yesterday. Patient is currently on propofol and fentanyl. 03/17: Patient received hemodialysis today, patient is slightly acidotic on ABG h owever [facility] is allowing for permissive hypercapnia, tracheal aspirate with Staph aureus and ID is aware. 03/18: Patient is having high residuals today and Reglan was started, patient will receive HD daily per nephrology, correct her change in FiO2 as tolerated. 03/19: HD per nephrology today, antibiotics changed to cefazolin. Patient did not tolerate tube feedings as she had high residuals this morning and they were turned off. Not restarted yet. Updated family at bedside today 03/20: HD today, ddimer noted to be >1000, Tolerating trickle TF. Stat BLE dopplar US 03/21: Patient is not tolerating TF, CXR shows worsening infiltrates, [facility] made changes to vent, TF on hold and started on IVF. 03/22/21- Patient remains intubated and on sedation. Persistent vomiting, TF held overnight, no documented BM, on reglan BR added, Shaun citarte & supp. HD today. Plan to restart TF at 10ml/hr, will reevaluate in the am. Persistent thrombocytopenia, Hep on hold, HIT panel ordered, PO eliquis initiated. 03/23/21- Patient remains on the vent and sedated on propofol and fentanyl RASS - 2 to -3. Possible SAT today as tolerated. Patient tolerated trickle feeds overnight, plan to advance TF by 10cc Q8 to 12hrs. Continue current BR and continue reglan for now. Slightr worsening in acidosis from this am, d/w [facility] vent setting adjusted, will repeat ABG at 9pm. 03/24/21- Patient is on the vent and sedated, on fentanyl and propfol. Bilateral subconjunctival hemorrhage with periorbital edema noted this am, pupils are round and reactive, will Cipro/Dex [id number]. Worsening of kidney function from today's labs, plan for HD per Nephro. 03/25/21- Patient remains intubated and on sedatin, RASS 0 to -1, no longer on pressors. Sudden drop in H&H this am, bilateral subconjunctival hemorrhage with no sig change, no signs of any active bleeding. Patient appears neurologically intact, following commands, pupils are round and reactive with + gag and cough, moved all extremities. D/w [facility] patient is too unstable for CT at this time. Eliquis D/Devaughn, 1unit of PRBC ordered. Will continue to trend CBC. Plan for another section of HD today 03/26/21- Patient remains on the vent and sedated. VENICE reported from overnight. Plan for HD again today. H&H back up and stable, no AC at this time, SCDs for VTE phro. D/w [facility] patient is still too unstable for CT scan, will continue neuro exam and will continue to monitor H&H. 03/27/21- VENICE overnight. remains on the vent and sedated. Red localized rashes noted in patient upper chest and face, will r/o allergic reaction,CBC with auto diff and urine eosinophils ordered. Plan for HD today per Nephro. 03/28/21- Patient remains on the vent and sedated. Persistent fevers overnight unrelieved with antipyretic, currently on a cooling blanket. Back on pressors for hypotension, patient already on IV abx, last blood cultureX2 and sputum culture from 03/23 were negative. Continue IV abx, will reculture patient, orders placed for B.culture and sputum culture. ID is also on consult. will continue F/u on culture and continue to monitor BMP and CBC. 03/29: Patient restarted on prednisone given splotchy rash, will resume apixaban for VTE prophylaxis and repeat ABG at 9 PM. Remains with leukocytosis, elevated BUN/creatinine, elevated triglycerides and on Levophed 03/30: HD today, rash is still present and started on IV steroids. plt is low today but will continue to monitor. [facility] made changes to vent-> decrease in MV. ABG in the pm and possible punch biopsy tomorrow if rash is not improved. propofol changed to versed 03/31: Heme/oncology consulted yesterday, will start patient on plasmapheresis for possible HUS. Cefepime discontinued today as today was the last day. Patient started on pulse dose steroids of 1 g/day for 3 days. Some improvement noted to eyes this morning. Patient was febrile overnight and received ibuprofen overnight. Acetaminophen allergy confirmed with family, allergy is only to oxycodone and hydrocodone but not the acetaminophen component. Confirmed by family patient has no reaction to [id number] Tylenol. Remains on vasopressor support and sedated with fentanyl, propofol and Versed. Vent mode changed to pressure control ventilation. Patient started on Arctic sun for fever control. Mother updated over telephone this a.m. and this p.m. family meeting held with her mother, sister x 2 and brother and with 2 other unknown people over the phone (1 female and one male) and nurse. Family states that patient is likely to an antibiotic possibly penicillins. This information was not available to us before. 04/01: Hyperkalemia medically treated, patient scheduled for dialysis today, plasmapheresis for possible HUS scheduled for today, steroids should be ending tomorrow, generalized rash/discoloration minimally better. Patient still remains on Arctic sun for temperature regulation. Vent changes per [facility]. 04/02: remains on artic sun but water temp noted to be in the 30s today. Completed plasmapheresis x2 and is now on steroid taper however minimal change noted to rash/discoloration. Eyes are more clear today but remain red under lids (tops of eye). Acidosis noted on ABG. Hyperkalemia and hyperphosphatemeia persists. Sedation increased for RR in to the 40s-50s and vasopressors being titrated as tolerated. 04/04: Patient receiving 1 unit PRBC per heme's recommendation, increased respiratory effort noted, patient is acidotic on ABG and given 1 amp of bicarb in addition to bicarb drip, sedation increased for vent synchrony. No HD per nephrology given tachycardia. Seroquel started. 04/05: Patient on the vent and sedated, still on 3 pressors. Patient to wean off propofol gtt, seroquel increased. Patient afebrile overnight, however artic sun is still in place. Will attempt to take off the cooling blanket today, will continue to assess for fever curve. Continue current IV Abx therapy per ID. Plan for HD today per Nephro. Patient's family at the bedside, thoroughly discussed patient's condition and overall poor prognosis. All questions and concerns were addressed. Team will continue to f/u with family with further updates. 04/06: Patient remains sedated and on the vent, still on fent and versed, propofol was weaned off. Low Hbg this am, 2 units of PRBCs ordered. Patient febrile overnight, patient completed IV abx course, leukocytosis downtrending. c/f for possible drug fever vs DVT, BLE doppler reordered to R/O DVT. Patient remains on high dose pressors, wean pressors as tolerated for MAP of 65. 04/07: Patient appears to be in distress thi am, tachypneic and tachycardic, with increased work of breathing. Propofol stopped this am. IV push versed given and versed gtt was increased to max. D/w CCM plan to possibly restart propofol since patient is not tolerating sedation wean. Patient remains febrile throughout, pancultured yesterday by ID and IV abx was restarted. Overall poor prognosis at this time. Patient's mother and siblings at the bedside were update on patient's status. Plan for possible family meeting with the care team Monday. 04/08: Patient with worsening CXR this am, increased of vent setting overnight, respiratory acidosis from this am ABG. Patient remains febrile, IV ABx switched to Merrem for VAP coverage, ID is following. Patient remains on sedation and on pressors. Low hemoglobin this am, 1unit of PRBCs ordered. Hyperkalemia noted, per Nephro it is stable no intervention at this time plan for HD tomorrow. Spoke with patient's mom, meeting postponed for possibly next week, case management to arrange. Hospitalist also called and updated patient's mother. Team will continue to follow up. 04/09: Patient condition remains unchanged, on the vent, on sedation, and on 2 pressors. Still febrile, on IV Abx, X1 set of fungal blood culture ordered. D/w ID recommended to start micafungin 100mg Qday. Hyperkalemic this am, plan for HD today. 04/10: VENICE overnight. Patient remains on the vent and sedated. Afebrile overnight, stress steroids added, pressors requirement is going down. HD overnight 3L out, plan for HD again today. Continue IV Abx and antifungal, F/u on culture data. 04/11: Patient remains on the vent and sedated, on minimal pressors this am. Tachycardic HR in the 130-140s this am. Per RN 4L out in HD yesterday, X1 dose of 25% Albumin given. Bloody drainage with clots also noted from patient nose, mouth, and ETT, Hbg 7 this am. Will hold AC for now, serial H&H ordered, transfuse if Hbg less than 7. Assessment and Plan #Neuro: Sedated - Intubated and sedated on fentanyl and versed, RASS -5 - On Seroquel - Plan to wean off propofol, RASS goal of 0 to -3 - PRN EKG for QTC monitoring - Daily SAT and SBT per [facility] - Avoid benzodiazepine to reduce the possibility of delirium - Prn analgesia for CPOT greater than 3 - Maintenance of sleep-wake cycle #CV: Tachycardia, s/p hypertension now with hypotension - Remains ST on the monitor - Remains on high dose pressors - Vasopressor support with levophed, vasopressin - Stress steroids added - Continue blood pressure monitor per protocol - Maintain MAP above 65 - SCDs for VTE proph #Respiratory: Acute hypoxic respiratory failure #asthma exacerbation #COVID-19 pneumonia/ARDS, #RUL PNA #Bronchospasm (resolved) - ETT on 03/14 - Vent setting: AC/PC- 60%,8,30,max PS60 - AM ABG noted - CCM consulted, appreciate recommendations - Continue IV Steroids and Nebs - VAP bundle addressed - Aspiration precaution HOB above 30 - Daily SBT and SAT trials as tolerated - Daily ABG and CXR per CCM - Continue SPO2 monitoring for SPO2 goal above 92% #GI: transaminitis #h/o MO and Crohn's disease -Nutrition consulted, appreciate recommendations -Tube feeding: Nepro at goal -Free water decreased 60 mL every 4 hours -Continue BR: Senokot -Continue PPI -BMS in place #: Acute kidney injury likely secondary to ATN #hyponatremia - Initial Scr was wnl - Scr as high as 10.8, 5.1 this am - Patient is now anuric - Nephrology consulted, appreciate recommendations - HD initiated 03/15 - 04/09 HD overnight 3L out - Plan for HD again today - Daily weights - Strict intake and output - Avoid nephrotoxic medications; Renally dose medications - Monitor and replace electrolytes as needed #ID: COVID-19 pneumonia #Leukocytosis - WBCs back up, probably reactive; 26.7 this am - artic sun D/C, patient febrile overnight TMAX 101.5 - Patient recultured on 04/07 - IV abx restarted by ID - 04/09 fungal blood culture ordered, Micafungin started per ID - Stress dose steroids added - Patient received X1 dose of redemsevir, was D/C due to worsen renal function - S/p X1 dose actemra - Trend COVID- inflammatory markers - Isolation/droplet precautions - On Vitamin C/vitamin D/zinc - Continue to F/u on culture data - Daily CBC monitor - Infectious disease consulted, appreciate recommendations #Heme: Anemia #?HUS vs drug reaction #Conjunctival hemorrhage- resolved - s/p plasmapheresis x2 (04/01-04/02) - S/p 4units of PRBCs - Eliquis restarted on 03/29 - 04/11 Eliquis held, bloody drainage noted from nose, mouth, and ETT - Hbg 7 this am - Serial H&H ordered Q6hrs - Trend CBC - Transfuse hemoglobin less than 7 - SCDs to bilateral lower extremity while in bed - 03/23 BLE duplex US shows no DVT - Repeat BLE doppler negative - HIT negative #Endo: Hyperglycemia - Hemoglobin A1c 6.3 - SSI Q6hrs - Avoid hypoglycemia - While critically ill target blood glucose of 140-180 The high probability of a clinically significant, sudden or life threatening deterioration of the [multiple] system(s) required my full and direct attention, intervention and personal management. The aggregate critical care time was [60] minutes. This time is in addition to time spent performing reported procedures but includes the following: [x] Data Review and interpretation [x] Patient assessment and monitoring of vital signs [x] Documentation [x] Medication orders and management Disposition Plan: ICU Total Time Spent with Patient (Minutes): 60 History Interval history: Patient is seen and examined at the bedside. Patient remains on the vent and on sedation. On low dose pressors this am. However Tachycardia noted this am, HR 130 to 140s. Bloody drainage with clots from nosse, mouth, and ETT reported from overnight and this am Hospitalist Physical - Constitutional Vitals: Temp Pulse Resp BP Pulse Ox 100.4 F H 133 H 22 118/55 98 04/11/21 08:00 04/11/21 11:15 04/11/21 11:15 04/11/21 09:17 04/11/21 11:15 General appearance: Present: no acute distress, well-nourished, obese, other (Intubated and sedated) - EENT Eyes: Present: PERRL - Respiratory Respiratory effort: labored, accessory muscle use Respiratory: bilateral: rhonchi, wheezing - Cardiovascular Rhythm: regular Heart Sounds: Present: S1 & S2 - Extremities Extremities: no ischemia, pulses intact, pulses symmetrical Extremity abnormal: edema - Peripheral Assessment Generalized Edema Type: Pitting Edema Degree: 3+ Capillary Refill: < 3 seconds Skin Temperature: Warm Peripheral Pulses: within normal limits - Abdominal General gastrointestinal: soft, non-tender, normal bowel sounds - Integumentary Integumentary: Present: warm, dry, erythema - Psychiatric Psychiatric: other (Intubated and sedated) - Neurologic Neurologic: other (Intubated and sedated) - Allied Health Allied health notes reviewed: nursing Results - Labs CBC & Chem 7: 04/11/21 11:50 04/11/21 04:15 Labs: Laboratory Last Values WBC 16.3 K/mm3 (4.5-11.0) H 04/11/21 04:15 RBC 2.53 M/mm3 (3.65-5.03) L 04/11/21 04:15 Hgb 7.0 gm/dl (10.1-14.3) L 04/11/21 04:15 Hct 22.6 % (30.3-42.9) L 04/11/21 04:15 MCV 89 fl (79-97) 04/11/21 04:15 MCH 28 pg (28-32) 04/11/21 04:15 MCHC 31 % (30-34) 04/11/21 04:15 RDW 18.4 % (13.2-15.2) H 04/11/21 04:15 Plt Count 176 K/mm3 (140-440) 04/11/21 04:15 Lymph % (Auto) 10.7 % (13.4-35.0) L 03/28/21 09:37 Sharp % (Auto) 5.2 % (0.0-7.3) 03/28/21 09:37 Eos % (Auto) Fur Joiner 04/07/21 03:50 Baso % (Auto) 0.2 % (0.0-1.8) 03/28/21 09:37 Lymph # (Auto) 1.7 K/mm3 (1.2-5.4) 03/28/21 09:37 Sharp # (Auto) 0.9 K/mm3 (0.0-0.8) H 03/28/21 09:37 Eos # (Auto) 0.6 K/mm3 (0.0-0.4) H 03/28/21 09:37 Baso # (Auto) 0.0 K/mm3 (0.0-0.1) 03/28/21 09:37 Add Manual Diff Complete 04/07/21 03:50 Total Counted 100 04/07/21 03:50 Seg Neutrophils % 80.0 % (40.0-70.0) H 03/28/21 09:37 Seg Neuts % (Manual) 67.0 % (40.0-70.0) 04/07/21 03:50 Lymphocytes % (Manual) 10.0 % (13.4-35.0) L 04/07/21 03:50 Monocytes % (Manual) 4.0 % (0.0-7.3) 04/07/21 03:50 Eosinophils % (Manual) 19.0 % (0.0-4.3) H 04/07/21 03:50 Basophils % (Manual) 2.0 % (0.0-1.8) H 04/03/21 04:30 Nucleated RBC % 2.0 % (0.0-0.9) H 04/07/21 03:50 Seg Neutrophils # 13.0 K/mm3 (1.8-7.7) H 03/28/21 09:37 Seg Neutrophils # Man 17.9 K/mm3 (1.8-7.7) H 04/07/21 03:50 Band Neutrophils # 0.0 K/mm3 04/07/21 03:50 Lymphocytes # (Manual) 2.7 K/mm3 (1.2-5.4) 04/07/21 03:50 Abs React Lymphs (Man) 0.0 K/mm3 04/07/21 03:50 Monocytes # (Manual) 1.1 K/mm3 (0.0-0.8) H 04/07/21 03:50 Eosinophils # (Manual) 5.1 K/mm3 (0.0-0.4) H 04/07/21 03:50 Basophils # (Manual) 0.0 K/mm3 (0.0-0.1) 04/07/21 03:50 Metamyelocytes # 0.0 K/mm3 04/07/21 03:50 Myelocytes # 0.0 K/mm3 04/07/21 03:50 Promyelocytes # 0.0 K/mm3 04/07/21 03:50 Blast Cells # 0.0 K/mm3 04/07/21 03:50 WBC Morphology Not Reportable 04/07/21 03:50 Hypersegmented Neuts Not Reportable 04/07/21 03:50 Hyposegmented Neuts Not Reportable 04/07/21 03:50 Hypogranular Neuts Not Reportable 04/07/21 03:50 Smudge Cells Not Reportable 04/07/21 03:50 Toxic Granulation Not Reportable 04/07/21 03:50 Toxic Vacuolation Not Reportable 04/07/21 03:50 Dohle Bodies Not Reportable 04/07/21 03:50 Pelger-Huet Anomaly Not Reportable 04/07/21 03:50 Bridgette Rods Not Reportable 04/07/21 03:50 Platelet Estimate Consistent w auto 04/07/21 03:50 Clumped Platelets Not Reportable 04/07/21 03:50 Plt Clumps, EDTA Not Reportable 04/07/21 03:50 Large Platelets Not Reportable 04/07/21 03:50 Giant Platelets Not Reportable 04/07/21 03:50 Platelet Satelliting Not Reportable 04/07/21 03:50 Plt Morphology Comment Not Reportable 04/07/21 03:50 RBC Morphology Not Reportable 04/07/21 03:50 Dimorphic RBCs Not Reportable 04/07/21 03:50 Polychromasia Not Reportable 04/07/21 03:50 Hypochromasia Not Reportable 04/07/21 03:50 Poikilocytosis Not Reportable 04/07/21 03:50 Anisocytosis 1+ 04/07/21 03:50 Microcytosis Not Reportable 04/07/21 03:50 Macrocytosis Not Reportable 04/07/21 03:50 Spherocytes Not Reportable 04/07/21 03:50 Pappenheimer Bodies Not Reportable 04/07/21 03:50 Sickle Cells Not Reportable 04/07/21 03:50 Target Cells 1+ 04/07/21 03:50 Tear Drop Cells Not Reportable 04/07/21 03:50 Ovalocytes Not Reportable 04/07/21 03:50 Helmet Cells Not Reportable 04/07/21 03:50 Kebede-Tibes Bodies Not Reportable 04/07/21 03:50 [place] Rings Not Reportable 04/07/21 03:50 [place] Cells Not Reportable 04/07/21 03:50 Bite Cells Not Reportable 04/07/21 03:50 Crenated Cell Not Reportable 04/07/21 03:50 Elliptocytes Not Reportable 04/07/21 03:50 Acanthocytes (Spur) Not Reportable 04/07/21 03:50 Rouleaux Not Reportable 04/07/21 03:50 Hemoglobin C Crystals Not Reportable 04/07/21 03:50 Schistocytes Not Reportable 04/07/21 03:50 Malaria parasites Not Reportable 04/07/21 03:50 Percent Retic 4.52 % (0.78-2.58) H 03/31/21 09:49 Vaibhav Bodies Not Reportable 04/07/21 03:50 Hem Pathologist Commnt No 04/07/21 03:50 PT 13.9 Sec. (12.2-14.9) 04/04/21 07:55 INR 0.96 (0.87-1.13) 04/04/21 07:55 APTT 28.9 Sec. (24.2-36.6) 04/04/21 07:55 Fibrinogen 455 mg/dl (211-480) 04/07/21 03:50 D-Dimer 2696.79 ng/mlDDU (0-234) H 04/08/21 04:40 Heparin Anti-Xa, Unfract TNR 03/22/21 08:20 ABG pH 7.192 (7.320-7.450) L 04/09/21 21:00 POC ABG pCO2 63.4 mmHg (32.0-48.0) H 04/09/21 21:00 ABG pCO2 83.8 mm Hg 04/08/21 09:55 POC ABG pO2 83.0 mmHg (83-108) 04/09/21 21:00 ABG pO2 75.9 mm Hg (80.0-90.0) L 04/08/21 09:55 POC ABG HCO3 23.8 04/09/21 21:00 ABG HCO3 26.2 mmol/L (20.0-26.0) H 04/08/21 09:55 ABG O2 Saturation 94.0 (0-100) 04/09/21 21:00 ABG O2 Content 10.2 (0.0-44) 04/08/21 09:55 POC ABG Base Excess -4.6 04/09/21 21:00 ABG Base Excess -3.6 mmol/L (-2.0-3.0) L 04/08/21 09:55 ABG Hemoglobin 8.7 (12.0-17.5) L 04/09/21 21:00 ABG Oxyhemoglobin 92.9 (94-98) L 04/09/21 21:00 ABG Carboxyhemoglobin 2.2 % (0.0-5.0) 04/08/21 09:55 ABG Methemoglobin 0.3 (0.0-1.5) 04/09/21 21:00 ABG Sodium 135.1 mmol/L (136.0-145.0) L 04/09/21 21:00 ABG Potassium 4.2 mmol/L (3.40-4.50) 04/09/21 21:00 ABG Chloride 102.0 mmol/L (98-107) 04/09/21 21:00 ABG Glucose 208 mg/dL (65-95) H 04/09/21 21:00 ABG Lactate Cancelled 04/03/21 20:45 Oxyhemoglobin 88.0 % (95.0-99.0) L 04/08/21 09:55 Carboxyhemoglobin 0.9 (0.5-1.5) 04/09/21 21:00 FiO2 60 % 04/08/21 09:55 FiO2 % 60.0 04/09/21 21:00 Sodium 144 mmol/L (137-145) D 04/11/21 04:15 Potassium 4.7 mmol/L (3.6-5.0) 04/11/21 04:15 Chloride 104.1 mmol/L (98-107) 04/11/21 04:15 Carbon Dioxide 24 mmol/L (22-30) 04/11/21 04:15 Anion Gap 21 mmol/L 04/11/21 04:15 BUN 71 mg/dL (7-17) H 04/11/21 04:15 Creatinine 3.1 mg/dL (0.6-1.2) H 04/11/21 04:15 Estimated GFR 21 ml/min 04/11/21 04:15 BUN/Creatinine Ratio 23 % 04/11/21 04:15 Glucose 183 mg/dL (65-100) H 04/11/21 04:15 POC Glucose 132 mg/dL (70-105) H 04/11/21 11:34 Hemoglobin A1c 6.3 % (4-6) H 03/15/21 05:09 Lactic Acid 0.80 mmol/L (0.7-2.0) 04/07/21 03:50 Calcium 9.0 mg/dL (8.4-10.2) 04/11/21 04:15 Phosphorus 9.30 mg/dL (2.5-4.5) H 04/08/21 04:00 Magnesium 2.00 mg/dL (1.7-2.3) 04/08/21 04:00 Ferritin 151.6 ng/mL (10.0-200.0) 03/18/21 04:30 Total Bilirubin 0.80 mg/dL (0.1-1.2) 04/07/21 04:00 Bilirubin Cancelled 04/03/21 20:45 AST 38 units/L (5-40) 04/07/21 04:00 ALT 38 units/L (7-56) 04/07/21 04:00 Alkaline Phosphatase 167 units/L (35-129) H 04/07/21 04:00 Lactate Dehydrogenase 394 units/L (91-180) H 04/05/21 05:20 C-Reactive Protein 26.10 mg/dL (0.00-1.30) H 04/08/21 04:00 Total Protein 6.6 g/dL (6.3-8.2) 04/07/21 04:00 Albumin 2.8 g/dL (3.9-5) L 04/07/21 04:00 Albumin/Globulin Ratio 0.7 % 04/07/21 04:00 Triglycerides 406 mg/dL (2-149) H 04/11/21 04:15 Serotonin Release Assay TNR 03/22/21 08:20 Procalcitonin < 0.05 ng/mL (<0.15) 03/13/21 15:40 HCG, Qual Negative (Negative) 03/13/21 13:26 Arterial Blood Glucose 208 mg/dL (65-95) H 04/09/21 21:00 Arterial Blood Ionized Calcium 4.3 mg/dL (4.6-5.3) L 04/08/21 20:53 Urine Color Sweta (Yellow) 04/06/21 Unknown Urine Turbidity Cloudy (Clear) 04/06/21 Unknown Urine pH 5.0 (5.0-7.0) 04/06/21 Unknown Ur Specific [place] 1.020 (1.003-1.030) 04/06/21 Unknown Urine Protein 100 mg/dl mg/dL (Negative) 04/06/21 Unknown Urine Glucose (UA) Neg mg/dL (Negative) 04/06/21 Unknown Urine Ketones Neg mg/dL (Negative) 04/06/21 Unknown Urine Blood Mod (Negative) 04/06/21 Unknown Urine Nitrite Neg (Negative) 04/06/21 Unknown Urine Bilirubin Neg (Negative) 04/06/21 Unknown Urine Urobilinogen < 2.0 mg/dL (<2.0) 04/06/21 Unknown Ur Leukocyte Esterase Neg (Negative) 04/06/21 Unknown Urine WBC (Auto) 148.0 /HPF (0.0-6.0) H 04/06/21 Unknown Urine RBC (Auto) > 182.0 /HPF (0.0-6.0) 04/06/21 Unknown U Epithel Cells (Auto) 102.0 /HPF (0-13.0) H 04/06/21 Unknown Urine Bacteria (Auto) 1+ /HPF (Negative) 04/06/21 Unknown Ur Renal Epithelial Cell 151 /LPF 04/06/21 Unknown Urine Mucus Few /HPF 04/06/21 Unknown Urine Yeast (Budding) 3+ /HPF 04/06/21 Unknown Urine Creatinine 40.1 mg/dL (0.1-20.0) H 03/14/21 17:50 Urine Sodium 124 mmol/L 03/14/21 17:50 Random Vancomycin 10.3 ug/mL (0-40.0) 04/10/21 04:45 Heparin-induced Plt Ab Negative (Negative) 03/22/21 08:20 UF Heparin High Dose TNR 03/22/21 08:20 JUAN UFH Low Dose 0.1 TNR 03/22/21 08:20 JUAN UFH Low Dose 0.5 TNR 03/22/21 08:20 Coronavirus (PCR) Negative (Negative) 04/04/21 09:00 Hepatitis A IgM Ab Non-reactive (NonReactive) 03/15/21 05:09 Hep Bs Antigen Nonreactive (Negative) 03/15/21 05:09 Hep B Core IgM Ab Non-reactive (NonReactive) 03/15/21 05:09 Hepatitis C Antibody Non-reactive (NonReactive) 03/15/21 05:09 Schistocytes Smear None seen 03/31/21 12:11 Blood Type O POSITIVE 04/08/21 13:55 Antibody Screen Negative 04/08/21 13:55 Direct Antiglob Test Negative 03/31/21 23:18 NIKOLE, Poly Interpret Negative 03/31/21 23:18 Crossmatch See Detail 04/08/21 13:55 Microbiology: Microbiology 04/06/21 16:46 Peripheral/Venous Blood Culture - Preliminary NO GROWTH AFTER 4 DAYS 04/06/21 17:00 Peripheral/Venous Blood Culture - Preliminary NO GROWTH AFTER 4 DAYS Bazan/IV: Voiding Method Toilet Active Medications - Current Medications Current Medications: Generic Name Dose Route Start Last Admin Trade Name Freq PRN Reason Stop Dose Admin Acetaminophen 650 mg 03/31/21 12:41 04/11/21 11:42 Acetaminophen 325 Mg/10.15 Ml Oral Liqd Unit Dose FEEDTUBE 650 mg Q6H PRN Administration TEMP >/=100.4 Albumin Human 25 gm 04/01/21 08:19 04/01/21 16:23 Albumin Human 25% (25 Gm/100 Ml) Inj IV 25 gm KARLOS PRN Administration Hypotension Albuterol 2.5 mg 03/19/21 00:53 Albuterol 2.5 Mg/3 Ml Nebu IH Q4HRT PRN Shortness Of Breath Albuterol/Ipratropium 1 ampul 03/19/21 08:00 04/11/21 10:04 Ipratropium/Albuterol Sulfate 3 Ml Ampul.Neb IH Not Given Q6HRT INESSA Lipase/Protease/Amylase 1 each 04/09/21 17:17 Lipase 10,500/Protease 25,000/Amylase 43,750 (Units) Dr White FEEDTUBE PRN PRN For Clogged Feeding Tube Ascorbic Acid 500 mg 03/14/21 22:00 04/11/21 09:09 Ascorbic Acid 500 Mg Tab PO 500 mg BID INESSA Administration Calcium Acetate 1,334 mg 04/03/21 20:00 04/11/21 08:06 Calcium Acetate 667 Mg Cap FEEDTUBE 1,334 mg TID INESSA Administration Dextrose 50 ml 03/14/21 11:02 03/15/21 11:40 Dextrose 50% In Water (25gm) 50 Ml Syringe IV 50 ml Q30MIN PRN Administration Hypoglycemia Protocol Famotidine 10 mg 03/17/21 22:00 04/11/21 09:09 Famotidine 10 Mg Tab PO 10 mg BID INESSA Administration Fentanyl 50 mcg 03/15/21 10:43 04/05/21 21:32 Fentanyl 100 Mcg/2 Ml Inj IV 50 mcg Q10MIN PRN Administration ANALGESIA Hydrocortisone Sodium Succinate 100 mg 04/10/21 00:00 04/11/21 08:06 Hydrocortisone Sod Succ 100 Mg/2 Ml Vial IV 100 mg Q8H INESSA Administration Hydromorphone HCl 1 mg 04/06/21 11:32 04/06/21 17:01 Hydromorphone 1 Mg/1 Ml Inj IV 04/13/21 11:31 1 mg Q4H PRN Administration Pain , Severe (7-10) Hydrophilic Ointment 1 applic 03/14/21 17:50 Lip Therapy Vaseline TP Q2HR PRN Dry Lips Fentanyl Citrate 2,000 mcg in 100 mls @ 6.872 mls/hr 03/15/21 11:00 04/11/21 09:48 Fentanyl Drip Premix IV 4 mcg/kg/hr TITR INESSA 27.488 mls/hr Administration Protocol 1 MCG/KG/HR Sodium Chloride 500 mls @ 1 mls/hr 03/16/21 17:19 Nacl 0.9% 500 Ml IV DIRECT PRN ARTERIAL LINE FLUSH NORepinephrine/NS 8 MG-250 ML 8 mg in 250 mls @ 3.75 mls/hr 03/23/21 11:00 04/11/21 05:20 Norepinephrine/Ns 8 Mg-250 Ml (Double Conc) IV 4 mcg/min TITRATE INESSA 7.5 mls/hr Titration Protocol 2 MCG/MIN Midazolam HCl 100 mg/ Sodium 100 mls @ 1 mls/hr 03/30/21 15:00 04/10/21 22:02 Chloride IV 6 mg/hr TITR INESSA 6 mls/hr Administration Protocol 1 MG/HR Vasopressin 20 unit/ Sodium 101 mls @ 9.09 mls/hr 03/30/21 20:00 04/11/21 10:33 Chloride IV 0 units/min TITR INESSA 0 mls/hr Infusion 0.03 UNITS/MIN Phenylephrine HCl 100 mg/ 100 mls @ 3 mls/hr 03/31/21 04:00 04/06/21 07:58 Sodium Chloride IV 0 mcg/min TITR INESSA 0 mls/hr Titration Protocol 50 MCG/MIN Sodium Chloride 100 mls @ 999 mls/hr 04/01/21 08:19 Nacl 0.9% IV KARLOS PRN Hypotension Sodium Bicarbonate 150 meq/ 1,150 mls @ 75 mls/hr 04/02/21 22:00 04/07/21 16:21 Dextrose IV Infused DIRECT INESSA Infusion Levofloxacin/Dextrose 750 mg in 150 mls @ 100 mls/hr 04/06/21 14:30 04/10/21 14:04 Levaquin 750mg/150ml IV 100 mls/hr Q48H INESSA Administration Protocol Propofol 1,000 mg in 100 mls @ 4.26 mls/hr 04/07/21 13:00 04/11/21 01:41 Diprivan 10 Mg/Ml IV 10 mcg/kg/min TITR INESSA 8.52 mls/hr Administration Protocol 5 MCG/KG/MIN Meropenem 500 mg in 50 mls @ 50 mls/hr 04/08/21 11:00 04/11/21 11:42 Merrem/Ns 500 Mg/50 Ml IV 50 mls/hr Q12H INESSA Administration Micafungin Sodium 100 mg/ 100 mls @ 100 mls/hr 04/09/21 17:00 04/10/21 16:15 Sodium Chloride IV 100 mls/hr Q24H INESSA Administration Protocol Insulin Human Lispro 0 unit 03/14/21 12:00 04/11/21 11:38 Insulin Lispro 100 Unit/Ml SUB-Q Not Given Q6HR [facility] Protocol Lorazepam 1 mg 03/13/21 19:40 03/30/21 19:58 Lorazepam 2 Mg/Ml Vial IV 1 mg Q4H PRN Administration Anxiety Multi-Ingred Cream/Lotion/Oil/Oint 1 applic 03/14/21 17:50 04/10/21 22:03 Mineral Oil/Petrolatum, White Ophth Oint 3.5 Gm OU 1 applic Q4HR PRN Administration Dry Eye(s) Ondansetron HCl 4 mg 03/13/21 19:30 03/21/21 12:05 Ondansetron 4 Mg/2 Ml Inj IV 4 mg Q8H PRN Administration Nausea And Vomiting Quetiapine Fumarate 300 mg 04/06/21 22:00 04/11/21 09:08 Quetiapine 100 Mg Tab PO 300 mg BID INESSA Administration Senna/Docusate Sodium 1 tab 03/14/21 22:00 04/11/21 09:08 Sennosides/Docusate Sodium 8.6/50 Mg Tab FEEDTUBE 1 tab BID INESSA Administration Simple Syrup 15 ml 04/09/21 17:17 Simple Syrup 15 Ml FEEDTUBE PRN PRN Hypoglycemia Simple Syrup 30 ml 04/09/21 17:17 Simple Syrup 15 Ml FEEDTUBE PRN PRN Hypoglycemia Sodium Bicarbonate 325 mg 03/15/21 11:42 03/21/21 17:21 Sodium Bicarbonate 325 Mg Tab FEEDTUBE 325 mg PRN PRN Administration For Clogged Feeding Tube Sodium Bicarbonate 325 mg 04/09/21 17:17 Sodium Bicarbonate 325 Mg Tab FEEDTUBE PRN PRN For Clogged Feeding Tube Sodium Chloride 10 ml 03/13/21 22:00 04/11/21 09:08 Sodium Chloride 0.9% 10 Ml Flush Syringe IV 10 ml BID INESSA Administration Sodium Chloride 10 ml 03/13/21 19:30 Sodium Chloride 0.9% 10 Ml Flush Syringe IV PRN PRN LINE FLUSH Zinc Sulfate 220 mg 03/14/21 22:00 04/11/21 09:09 Zinc Sulfate 220 Mg Cap PO 220 mg BID INESSA Administration Nutrition/Malnutrition Assess - Dietary Evaluation Nutrition/Malnutrition Findings: Nutrition Notes Start: 03/15/21 11:06 Freq: Status: Active Protocol: Document 04/09/21 16:52 CANDACE (Rec: 04/09/21 17:24 CANDACE [id number]) Nutrition Notes Initial or Follow up Reassessment Current Diagnosis Acute Kidney Injury, Hypertension,Respiratory Failure Other Pertinent Diagnosis [id number], Transaminitis, Hyperglycemia, Current Diet TF -Nepro w/CARBSTEADY (since D 03/15). Labs/Tests 04/09: Na 131, K 6.3, Cl 93.0, CO2 19, BUN 98, Crea 4.6, Glu 208, Ca 8.1. Pertinent Medications 04/09: Nutritionally unremarkable. Height 5 ft 5 in Weight 142 kg [place] Body Weight (kg) 56.81 BMI 52.0 Weight change and time frame 4.56 Kg body weight gain during last 7 days reported. Weight Status Morbidly Obese Subjective/Other Information RD consult for routine F/U on TF tolerance. Burn Absent Trauma Absent GI Symptoms None Food Allergy No Skin Integrity/Comment Clear, warm, dry. Current % PO Other Minimum of two criteria No Is patient on ventilator? Yes Is Patient Ambulatory and/or Out of Bed No REE-([facility]-confined to bed) 2570.232 Kcal/Kg value to use for calculation 14 Approximate Energy Requirements Using 1988 kcal/Kg Calculation Used for Recommendations Kcal/kg Additional Notes Pro needs >1.2g/kg adjBW: > 117g/day Fluid needs 1-1.5L/day Nutrition Intervention Nutrition Support: Continue Nepro w/CARBSTEADY @ 46 ml/hr. Flush: 198 ml water Q 4h Kcal 1,988 Protein (gm) 90 Carbohydrates (gm) 178 Fat (gm) 106 Fluid (mL) 803 Fiber (gm) 14 % RDI: 100% Kcal; 76% AA. Goal #1 Maintain body weight within +/ -3% of admission BWt during LOS. Goal #2 Reach and maintain acceptable chemistry lab values during LOS. Follow-Up By: 04/23/21 Additional Comments Continue monitoring TF tolerance, Hydration, and BM.
[2021-04-11 12:11] LABS: Hematocrit 20.8 % (30.3-42.9); Hemoglobin 6.7 gm/dl (10.1-14.3)
[2021-04-11] MEDS ORDERED: SODIUM CHLORIDE 0.9% 500 ML 500 ML IV SCH (12:49)
[2021-04-11] MEDS ORDERED: ALBUMIN HUMAN 25% (25 GM/100 ML) INJ IV ONE (13:00)
[2021-04-11] MEDS ORDERED: ROCURONIUM 50 MG/5 ML INJ IV ONE (14:28)
[2021-04-11] MEDS: VASOPRESSIN 20 UNIT in SODIUM CHLORIDE 0.9% 100 ML IV SCH (14:35)
--- NOTE | 2021-04-11 15:23 | Procedure Note ---
Date of procedure: 04/11/21 Pre-op diagnosis: Malfunctioning ETT Post-op diagnosis: same Procedure: ETT tube exchange- Using a Bougie the old ETT was exchanged using Seldinger technique New 7.5cm ETT was placed after Rocuronium 75mg IV was given Surgeon: SANJUANA GRANT Estimated blood loss: none Pathology: none Condition: critical Disposition: ICU
--- NOTE | 2021-04-11 15:43 | Progress Note ---
Assessment and Plan Impression/Plan: #Acute kidney injury: dialysis dependent - s/p HD on 04/10, did have UF of 3L - will benefit from daily dialysis if tolerated, HD tomorrow ordered - daily lytes - Assess daily for needs for additional sessions pending hemodynamic stability - Strict input and output - Avoid nephrotoxins - Renally dose medications - Keep MAP > 65 #Hyperkalemia: K stable today #Respiratory failure Covid 19 infection currently intubated UF as tolerated with HD, limited by hemodynamic instability #Hyperphosphatemia to be monitored Dialysis has been initiated #Hyponatremia: stable #Anemia--Hematology plans noted, plasma exchange noted #Overall prognosis remains poor, palliative care appropriate Subjective Date of service: 04/11/21 Principal diagnosis: Ac hypoxemic resp failure; AE-Asthma; SAI; Crohn's; COVID- 19; Pneumonia Interval history: FiO2 55%, remains intubated, on 3 pressors Objective - Exam Narrative Exam: General appearance: Intubated and sedated, obese Head: NC/AT Neck: Absent: masses or JVD, cervical LAD Respiratory: coarse mechanical sounds Heart: Present: S1 & S2, mildly tachycardic Extremities: pulses intact, pulses symmetrical; 3+ edema Peripheral Pulses: within normal limits General gastrointestinal: soft, non-tender Integumentary: dry Neurologic: sedated - Vital Signs Vital signs: Vital Signs - 12hr 04/11/21 04/11/21 04/11/21 03:45 04:00 04:01 Temperature 100.8 F H Pulse Rate 130 H 131 H 132 H Pulse Rate [ Anterior Bilateral Throughout] Pulse Rate [ 124 H From Monitor] Respiratory 22 30 H 21 Rate Respiratory Rate [Anterior Bilateral Throughout] Blood Pressure O2 Sat by Pulse 96 100 96 Oximetry 04/11/21 04/11/21 04/11/21 04:15 04:31 04:45 Temperature Pulse Rate 131 H 133 H 132 H Pulse Rate [ Anterior Bilateral Throughout] Pulse Rate [ From Monitor] Respiratory 21 19 20 Rate Respiratory Rate [Anterior Bilateral Throughout] Blood Pressure O2 Sat by Pulse 95 95 95 Oximetry 04/11/21 04/11/21 04/11/21 05:01 05:15 05:31 Temperature Pulse Rate 132 H 130 H 130 H Pulse Rate [ Anterior Bilateral Throughout] Pulse Rate [ From Monitor] Respiratory 19 18 17 Rate Respiratory Rate [Anterior Bilateral Throughout] Blood Pressure O2 Sat by Pulse 95 95 97 Oximetry 04/11/21 04/11/21 04/11/21 05:45 06:01 06:15 Temperature Pulse Rate 129 H 129 H 128 H Pulse Rate [ Anterior Bilateral Throughout] Pulse Rate [ From Monitor] Respiratory 19 17 19 Rate Respiratory Rate [Anterior Bilateral Throughout] Blood Pressure 107/52 O2 Sat by Pulse 96 97 98 Oximetry 04/11/21 04/11/21 04/11/21 06:31 06:45 07:01 Temperature Pulse Rate 129 H 127 H 128 H Pulse Rate [ Anterior Bilateral Throughout] Pulse Rate [ From Monitor] Respiratory 22 18 19 Rate Respiratory Rate [Anterior Bilateral Throughout] Blood Pressure O2 Sat by Pulse 99 99 98 Oximetry 04/11/21 04/11/21 04/11/21 07:15 07:31 07:36 Temperature 100.6 F H Pulse Rate 127 H 127 H Pulse Rate [ Anterior Bilateral Throughout] Pulse Rate [ From Monitor] Respiratory 19 19 Rate Respiratory Rate [Anterior Bilateral Throughout] Blood Pressure O2 Sat by Pulse 99 100 Oximetry 04/11/21 04/11/21 04/11/21 07:45 08:00 08:01 Temperature 100.4 F H Pulse Rate 125 H 128 H 129 H Pulse Rate [ Anterior Bilateral Throughout] Pulse Rate [ 128 H From Monitor] Respiratory 16 32 H 23 Rate Respiratory Rate [Anterior Bilateral Throughout] Blood Pressure O2 Sat by Pulse 100 100 100 Oximetry 04/11/21 04/11/21 04/11/21 08:15 08:31 08:45 Temperature Pulse Rate 132 H 132 H 130 H Pulse Rate [ Anterior Bilateral Throughout] Pulse Rate [ From Monitor] Respiratory 21 21 19 Rate Respiratory Rate [Anterior Bilateral Throughout] Blood Pressure O2 Sat by Pulse 99 99 100 Oximetry 04/11/21 04/11/21 04/11/21 09:01 09:15 09:17 Temperature Pulse Rate 127 H 129 H 131 H Pulse Rate [ Anterior Bilateral Throughout] Pulse Rate [ From Monitor] Respiratory 16 18 Rate Respiratory Rate [Anterior Bilateral Throughout] Blood Pressure 118/55 O2 Sat by Pulse 99 100 99 Oximetry 04/11/21 04/11/21 04/11/21 09:31 09:35 09:45 Temperature Pulse Rate 129 H 133 H Pulse Rate [ 133 H Anterior Bilateral Throughout] Pulse Rate [ From Monitor] Respiratory 14 16 Rate Respiratory 31 H Rate [Anterior Bilateral Throughout] Blood Pressure O2 Sat by Pulse 100 98 Oximetry 04/11/21 04/11/21 04/11/21 10:01 10:15 10:31 Temperature Pulse Rate 132 H 131 H 130 H Pulse Rate [ Anterior Bilateral Throughout] Pulse Rate [ From Monitor] Respiratory 17 30 H 22 Rate Respiratory Rate [Anterior Bilateral Throughout] Blood Pressure O2 Sat by Pulse 97 95 94 Oximetry 04/11/21 04/11/21 04/11/21 10:45 11:01 11:15 Temperature Pulse Rate 131 H 131 H 133 H Pulse Rate [ Anterior Bilateral Throughout] Pulse Rate [ From Monitor] Respiratory 21 23 22 Rate Respiratory Rate [Anterior Bilateral Throughout] Blood Pressure O2 Sat by Pulse 96 96 98 Oximetry 04/11/21 04/11/21 04/11/21 11:31 11:45 12:00 Temperature Pulse Rate 133 H 133 H 131 H Pulse Rate [ Anterior Bilateral Throughout] Pulse Rate [ 131 H From Monitor] Respiratory 21 22 30 H Rate Respiratory Rate [Anterior Bilateral Throughout] Blood Pressure O2 Sat by Pulse 96 98 100 Oximetry 04/11/21 04/11/21 04/11/21 12:01 12:05 12:11 Temperature 101.1 F H Pulse Rate 137 H 136 H Pulse Rate [ Anterior Bilateral Throughout] Pulse Rate [ From Monitor] Respiratory 21 Rate Respiratory Rate [Anterior Bilateral Throughout] Blood Pressure 97/53 O2 Sat by Pulse 98 97 Oximetry 04/11/21 04/11/21 04/11/21 12:15 12:31 12:45 Temperature Pulse Rate 136 H 135 H 135 H Pulse Rate [ Anterior Bilateral Throughout] Pulse Rate [ From Monitor] Respiratory 22 22 23 Rate Respiratory Rate [Anterior Bilateral Throughout] Blood Pressure O2 Sat by Pulse 97 93 96 Oximetry 04/11/21 04/11/21 04/11/21 13:01 13:15 13:31 Temperature Pulse Rate 134 H 134 H 133 H Pulse Rate [ Anterior Bilateral Throughout] Pulse Rate [ From Monitor] Respiratory 22 23 23 Rate Respiratory Rate [Anterior Bilateral Throughout] Blood Pressure O2 Sat by Pulse 95 97 94 Oximetry 04/11/21 04/11/21 04/11/21 13:45 14:01 14:15 Temperature Pulse Rate 135 H 134 H 135 H Pulse Rate [ Anterior Bilateral Throughout] Pulse Rate [ From Monitor] Respiratory 25 H 25 H 22 Rate Respiratory Rate [Anterior Bilateral Throughout] Blood Pressure O2 Sat by Pulse 94 94 93 Oximetry 04/11/21 04/11/2104/11/21 14:31 14:45 15:01 Temperature Pulse Rate 137 H 133 H 129 H Pulse Rate [ Anterior Bilateral Throughout] Pulse Rate [ From Monitor] Respiratory 28 H 31 H 24 Rate Respiratory Rate [Anterior Bilateral Throughout] Blood Pressure O2 Sat by Pulse 99 100 99 Oximetry 04/11/21 15:15 Temperature Pulse Rate 141 H Pulse Rate [ Anterior Bilateral Throughout] Pulse Rate [ From Monitor] Respiratory 21 Rate Respiratory Rate [Anterior Bilateral Throughout] Blood Pressure O2 Sat by Pulse 97 Oximetry - Lab 04/11/21 11:50 04/11/21 04:15 Most recent lab results ABG pH 7.192 (7.320-7.450) L 04/09/21 21:00 ABG pCO2 83.8 mm Hg 04/08/21 09:55 ABG pO2 75.9 mm Hg (80.0-90.0) L 04/08/21 09:55 ABG HCO3 26.2 mmol/L (20.0-26.0) H 04/08/21 09:55 ABG O2 Saturation 94.0 (0-100) 04/09/21 21:00 Calcium 9.0 mg/dL (8.4-10.2) 04/11/21 04:15 Phosphorus 9.30 mg/dL (2.5-4.5) H 04/08/21 04:00 Magnesium 2.00 mg/dL (1.7-2.3) 04/08/21 04:00 Urine Creatinine 40.1 mg/dL (0.1-20.0) H 03/14/21 17:50 Urine Sodium 124 mmol/L 03/14/21 17:50 Medications & Allergies - Medications Allergies/Adverse Reactions: Allergies oxycodone HCl [From Percocet] Allergy (Severe, Verified 03/30/21 14:01) Swelling cefepime Allergy (Verified 04/06/21 13:38) Rash hydrocodone bitartrate [From Vicodin] Allergy (Verified 03/31/21 08:20) Swelling ALLERGY TO TYLENOL VS OXYCODONE ACTIVE ORDER REMOVED FROM JUL SINCE UNABLE TO CONFIRM WITH FAMILY Home Medications: Home Medications Medication Instructions Recorded Confirmed Last Taken Type Chlorhexidine Mouthwash [Peridex] 15 ml MM BID #1 bottle 10/11/20 03/13/21 Unknown Rx Clindamycin [Clindamycin CAP] 300 mg PO Q8H #21 cap 10/11/20 03/13/21 Unknown Rx Naproxen 500 mg PO Q12H PRN #12 tablet 10/11/20 03/13/21 Unknown Rx Butalb/Acetamin/Caff 50-325-40 1 - 2 tab PO Q6HR PRN #15 tab 12/05/20 03/13/21 Unknown Rx [Fioricet 50-325-40] Famotidine [Pepcid] 20 mg PO BID #30 tablet 12/05/20 03/13/21 Unknown Rx Ketorolac [Toradol] 10 mg PO Q8H PRN #20 tablet 12/05/20 03/13/21 Unknown Rx Ondansetron [Zofran Odt] 4 mg PO Q6HR PRN #20 tab.rapdis 12/05/20 03/13/21 Unknown Rx Albuterol Sulfate [Proair 90 mcg IH Q4HR PRN #2 [email or web address] 01/01/21 03/13/21 Unknown Rx Respiclick] Mupirocin [Bactroban 2% OINT] 1 applic TP BID 7 Days #1 tube 01/01/21 03/13/21 Unknown Rx Triamcinolone Aceton 0.1% (Nf) 1 applic TP BID 14 Days #1 tube 01/01/21 03/13/21 Unknown Rx [Kenalog (NF)] predniSONE [Deltasone] 40 mg PO QDAY #8 tab 01/01/21 03/13/21 Unknown Rx Active Medications: Generic Name Dose Route Start Last Admin Trade Name Freq PRN Reason Stop Dose Admin Acetaminophen 650 mg 03/31/21 12:41 04/11/21 11:42 Acetaminophen 325 Mg/10.15 Ml Oral Liqd Unit Dose FEEDTUBE 650 mg Q6H PRN Administration TEMP >/=100.4 Albumin Human 25 gm 04/01/21 08:19 04/01/21 16:23 Albumin Human 25% (25 Gm/100 Ml) Inj IV 25 gm KARLOS PRN Administration Hypotension Albuterol 2.5 mg 03/19/21 00:53 Albuterol 2.5 Mg/3 Ml Nebu IH Q4HRT PRN Shortness Of Breath Albuterol/Ipratropium 1 ampul 03/19/21 08:00 04/11/21 14:33 Ipratropium/Albuterol Sulfate 3 Ml Ampul.Neb IH 1 ampul Q6HRT INESSA Administration Lipase/Protease/Amylase 1 each 04/09/21 17:17 Lipase 10,500/Protease 25,000/Amylase 43,750 (Units) Dr Cap FEEDTUBE PRN PRN For Clogged Feeding Tube Ascorbic Acid 500 mg 03/14/21 22:00 04/11/21 09:09 Ascorbic Acid 500 Mg Tab PO 500 mg BID INESSA Administration Calcium Acetate 1,334 mg 04/03/21 20:00 04/11/21 13:14 Calcium Acetate 667 Mg Cap FEEDTUBE 1,334 mg TID INESSA Administration Dextrose 50 ml 03/14/21 11:02 03/15/21 11:40 Dextrose 50% In Water (25gm) 50 Ml Syringe IV 50 ml Q30MIN PRN Administration Hypoglycemia Protocol Famotidine 10 mg 03/17/21 22:00 04/11/21 09:09 Famotidine 10 Mg Tab PO 10 mg BID INESSA Administration Fentanyl 50 mcg 03/15/21 10:43 04/05/21 21:32 Fentanyl 100 Mcg/2 Ml Inj IV 50 mcg Q10MIN PRN Administration ANALGESIA Hydrocortisone Sodium Succinate 100 mg 04/10/21 00:00 04/11/21 08:06 Hydrocortisone Sod Succ 100 Mg/2 Ml Vial IV 100 mg Q8H INESSA Administration Hydromorphone HCl 1 mg 04/06/21 11:32 04/06/21 17:01 Hydromorphone 1 Mg/1 Ml Inj IV 04/13/21 11:31 1 mg Q4H PRN Administration Pain , Severe (7-10) Hydrophilic Ointment 1 applic 03/14/21 17:50 Lip Therapy Vaseline TP Q2HR PRN Dry Lips Fentanyl Citrate 2,000 mcg in 100 mls @ 6.872 mls/hr 03/15/21 11:00 04/11/21 13:47 Fentanyl Drip Premix IV 4 mcg/kg/hr TITR INESSA 27.488 mls/hr Administration Protocol 1 MCG/KG/HR Sodium Chloride 500 mls @ 1 mls/hr 03/16/21 17:19 Nacl 0.9% 500 Ml IV DIRECT PRN ARTERIAL LINE FLUSH NORepinephrine/NS 8 MG-250 ML 8 mg in 250 mls @ 3.75 mls/hr 03/23/21 11:00 04/11/21 14:51 Norepinephrine/Ns 8 Mg-250 Ml (Double Conc) IV 10 mcg/min TITRATE INESSA 18.75 mls/hr Titration Protocol 2 MCG/MIN Midazolam HCl 100 mg/ Sodium 100 mls @ 1 mls/hr 03/30/21 15:00 04/10/21 22:02 Chloride IV 6 mg/hr TITR INESSA 6 mls/hr Administration Protocol 1 MG/HR Vasopressin 20 unit/ Sodium 101 mls @ 9.09 mls/hr 03/30/21 20:00 04/11/21 14:35 Chloride IV 0.03 units/min TITR INESSA 9.09 mls/hr Administration 0.03 UNITS/MIN Phenylephrine HCl 100 mg/ 100 mls @ 3 mls/hr 03/31/21 04:00 04/06/21 07:58 Sodium Chloride IV 0 mcg/min TITR INESSA 0 mls/hr Titration Protocol 50 MCG/MIN Sodium Chloride 100 mls @ 999 mls/hr 04/01/21 08:19 Nacl 0.9% IV KARLOS PRN Hypotension Sodium Bicarbonate 150 meq/ 1,150 mls @ 75 mls/hr 04/02/21 22:00 04/07/21 16:21 Dextrose IV Infused DIRECT INESSA Infusion Levofloxacin/Dextrose 750 mg in 150 mls @ 100 mls/hr 04/06/21 14:30 04/10/21 14:04 Levaquin 750mg/150ml IV 100 mls/hr Q48H INESSA Administration Protocol Propofol 1,000 mg in 100 mls @ 4.26 mls/hr 04/07/21 13:00 04/11/21 15:22 Diprivan 10 Mg/Ml IV 5 mcg/kg/min TITR INESSA 4.26 mls/hr Titration Protocol 5 MCG/KG/MIN Meropenem 500 mg in 50 mls @ 50 mls/hr 04/08/21 11:00 04/11/21 12:42 Merrem/Ns 500 Mg/50 Ml IV Infused Q12H INESSA Infusion Micafungin Sodium 100 mg/ 100 mls @ 100 mls/hr 04/09/21 17:00 04/10/21 16:15 Sodium Chloride IV 100 mls/hr Q24H INESSA Administration Protocol Sodium Chloride 500 mls @ 0 mls/hr 04/11/21 12:49 04/11/21 13:13 Nacl 0.9% 500 Ml IV 5 mls/hr ONCE INESSA Administration As Directed Insulin Human Lispro 0 unit 03/14/21 12:00 04/11/21 11:38 Insulin Lispro 100 Unit/Ml SUB-Q Not Given Q6HR INESSA Protocol Lorazepam 1 mg 03/13/21 19:40 03/30/21 19:58 Lorazepam 2 Mg/Ml Vial IV 1 mg Q4H PRN Administration Anxiety Multi-Ingred Cream/Lotion/Oil/Oint 1 applic 03/14/21 17:50 04/10/21 22:03 Mineral Oil/Petrolatum, White Ophth Oint 3.5 Gm OU 1 applic Q4HR PRN Administration Dry Eye(s) Ondansetron HCl 4 mg 03/13/21 19:30 03/21/21 12:05 Ondansetron 4 Mg/2 Ml Inj IV 4 mg Q8H PRN Administration Nausea And Vomiting Quetiapine Fumarate 300 mg 04/06/21 22:00 04/11/21 09:08 Quetiapine 100 Mg Tab PO 300 mg BID INESSA Administration Senna/Docusate Sodium 1 tab 03/14/21 22:00 04/11/21 09:08 Sennosides/Docusate Sodium 8.6/50 Mg Tab FEEDTUBE 1 tab BID INESSA Administration Simple Syrup 15 ml 04/09/21 17:17 Simple Syrup 15 Ml FEEDTUBE PRN PRN Hypoglycemia Simple Syrup 30 ml 04/09/21 17:17 Simple Syrup 15 Ml FEEDTUBE PRN PRN Hypoglycemia Sodium Bicarbonate 325 mg 03/15/21 11:42 03/21/21 17:21 Sodium Bicarbonate 325 Mg Tab FEEDTUBE 325 mg PRN PRN Administration For Clogged Feeding Tube Sodium Bicarbonate 325 mg 04/09/21 17:17 Sodium Bicarbonate 325 Mg Tab FEEDTUBE PRN PRN For Clogged Feeding Tube Sodium Chloride 10 ml 03/13/21 22:00 04/11/21 09:08 Sodium Chloride 0.9% 10 Ml Flush Syringe IV 10 ml BID INESSA Administration Sodium Chloride 10 ml 03/13/21 19:30 Sodium Chloride 0.9% 10 Ml Flush Syringe IV PRN PRN LINE FLUSH Zinc Sulfate 220 mg 03/14/21 22:00 04/11/21 09:09 Zinc Sulfate 220 Mg Cap PO 220 mg BID INESSA Administration
[2021-04-11] MEDS: MICAFUNGIN 100 MG in SODIUM CHLORIDE 0.9% 100 ML IV SCH (16:22)
[2021-04-11] MEDS: NORepinephrine/NS 8 MG-250 ML 8 MG/250 ML INFUS..BTL IV SCH ×2 (16:22→17:37)
--- NOTE | 2021-04-11 16:22 | Procedure Note ---
Date of procedure: 04/11/21 Pre-op diagnosis: Alveolar hemorrhage Post-op diagnosis: same Procedure: Fiberoptic bronchoscopy through a pre-existing ETT Consent was obtained from her mother- see filed consent form Time out was done and universal precautions addressed. The bronch was inserted through the ETT, ETT was in good position. There was copious frothy bloody secretions in the airway. Bronchial washings obtained for culture Anesthesia: other (On Propofol, Midazolam and Fentanyl) Surgeon: SANJUANA GRANT Estimated blood loss: none Condition: critical Disposition: ICU
--- NOTE | 2021-04-11 16:27 | Progress Note ---
Assessment and Plan Acute hypoxemic respiratory failure Acute asthma exacerbation Morbid obesity Crohn's disease Metabolic acidosis Acute kidney injury on HD Coronavirus infection Pneumonia (CAP) Oropharyngeal dysphagia Obesity Drug rash s/p steroids - Transfuse 1 unit PRBC, goal Hgb >7g/dL -ETT exchange and then bronchoscopy( bloody ETT secretions) - continue to wean vasopressors for target MAP > 65 mmHg (currently onNorepinephrine at 6mcg) -Continue with stress dose steroids - nephrology input appreciated; HD/UF for toxin and volume clearance - continue to wean supplemental oxygen to keep SpO2 88-90% - VAP bundle addressed, aspiration precautions HOB >30 - continue lung protective strategies - continue bronchodilators with pulmonary hygiene per RT - wean per pulmonary driven protocols otherwise - continue accuchecks with glycemic control per SSI (While critically ill target blood glucose of 140-180 mg/dL; avoid hypoglycemia) - sedation prn for target RASS 0 to -1 - avoid nephrotoxins, renally dose all medications - continue to avoid benzodiazepines, reduce the possibility of delirium - prn analgesia per CPOT score - Maintenance of sleep-wake cycle, avoid delirium - continue enteral nutritional support at goal rate as tolerated - Stress ulcer prophylaxis - PT/OT/ROM exercises - continue mobility, off loading, frequent turning per facility protocol for pressure ulcer prevention - Monitor hemodynamics closely - continue other care per attending / other consultants COVID SPECIFIC INTERVENTIONS - repeat COVID tests result negative CONDITION: CRITICAL PROGNOSIS: GUARDED CODE STATUS: FULL CODE The high probability of a clinically significant, sudden or life-threatening deterioration of the [respiratory, cardiovascular, renal & neurologic] system(s) required my full and direct attention, intervention and personal management. The aggregate critical care time was [35] minutes without overlap. Time includes spent on; [x] Data Review and interpretation [x] Patient assessment and monitoring of vital signs [x] Documentation [x] Medication orders and management Subjective Date of service: 04/11/21 Principal diagnosis: Ac hypoxemic resp failure; AE-Asthma; SAI; Crohn's; Pneumonia Interval history: Patient is seen today for: Acute hypoxemic respiratory failure; AE-Asthma; SAI; Crohn's disease; COVID-19 infection; Pneumonia (CAP) Seen and examined at bedside; 24hour events reviewed; nursing and respiratory care staff consulted; no adverse overnight events reported to me; resting in bed; remains on MVS; remains on vasopressors, but down to one pressor- Levophed; no emesis or overt aspiration. s/p UF 3-4 liters yesterday, she has tachycardia with bloody secretions through the ETT and a drop in hemoglobin to 6.7g/dL RT reports the loss of tidal volumes, the ETT cuff is "blown" Objective Vital Signs - 12hr 04/11/21 04/11/21 04/11/21 04:31 04:45 05:01 Temperature Pulse Rate 133 H 132 H 132 H Pulse Rate [ Anterior Bilateral Throughout] Pulse Rate [ From Monitor] Respiratory 19 20 19 Rate Respiratory Rate [Anterior Bilateral Throughout] Blood Pressure O2 Sat by Pulse 95 95 95 Oximetry 04/11/21 04/11/21 04/11/21 05:15 05:31 05:45 Temperature Pulse Rate 130 H 130 H 129 H Pulse Rate [ Anterior Bilateral Throughout] Pulse Rate [ From Monitor] Respiratory 18 17 19 Rate Respiratory Rate [Anterior Bilateral Throughout] Blood Pressure O2 Sat by Pulse 95 97 96 Oximetry 04/11/21 04/11/21 04/11/21 06:01 06:15 06:31 Temperature Pulse Rate 129 H 128 H 129 H Pulse Rate [ Anterior Bilateral Throughout] Pulse Rate [ From Monitor] Respiratory 17 19 22 Rate Respiratory Rate [Anterior Bilateral Throughout] Blood Pressure 107/52 O2 Sat by Pulse 97 98 99 Oximetry 04/11/21 04/11/21 04/11/21 06:45 07:01 07:15 Temperature Pulse Rate 127 H 128 H 127 H Pulse Rate [ Anterior Bilateral Throughout] Pulse Rate [ From Monitor] Respiratory 18 19 19 Rate Respiratory Rate [Anterior Bilateral Throughout] Blood Pressure O2 Sat by Pulse 99 98 99 Oximetry 04/11/21 04/11/21 04/11/21 07:31 07:36 07:45 Temperature 100.6 F H Pulse Rate 127 H 125 H Pulse Rate [ Anterior Bilateral Throughout] Pulse Rate [ From Monitor] Respiratory 19 16 Rate Respiratory Rate [Anterior Bilateral Throughout] Blood Pressure O2 Sat by Pulse 100 100 Oximetry 04/11/21 04/11/21 04/11/21 08:00 08:01 08:15 Temperature 100.4 F H Pulse Rate 128 H 129 H 132 H Pulse Rate [ Anterior Bilateral Throughout] Pulse Rate [ 128 H From Monitor] Respiratory 32 H 23 21 Rate Respiratory Rate [Anterior Bilateral Throughout] Blood Pressure O2 Sat by Pulse 100 100 99 Oximetry 04/11/21 04/11/21 04/11/21 08:31 08:45 09:01 Temperature Pulse Rate 132 H 130 H 127 H Pulse Rate [ Anterior Bilateral Throughout] Pulse Rate [ From Monitor] Respiratory 21 19 16 Rate Respiratory Rate [Anterior Bilateral Throughout] Blood Pressure O2 Sat by Pulse 99 100 99 Oximetry 04/11/21 04/11/21 04/11/21 09:15 09:17 09:31 Temperature Pulse Rate 129 H 131 H 129 H Pulse Rate [ Anterior Bilateral Throughout] Pulse Rate [ From Monitor] Respiratory 18 14 Rate Respiratory Rate [Anterior Bilateral Throughout] Blood Pressure 118/55 O2 Sat by Pulse 100 99 100 Oximetry 04/11/21 04/11/21 04/11/21 09:35 09:45 10:01 Temperature Pulse Rate 133 H 132 H Pulse Rate [ 133 H Anterior Bilateral Throughout] Pulse Rate [ From Monitor] Respiratory 16 17 Rate Respiratory 31 H Rate [Anterior Bilateral Throughout] Blood Pressure O2 Sat by Pulse 98 97 Oximetry 04/11/21 04/11/21 04/11/21 10:15 10:31 10:45 Temperature Pulse Rate 131 H 130 H 131 H Pulse Rate [ Anterior Bilateral Throughout] Pulse Rate [ From Monitor] Respiratory 30 H 22 21 Rate Respiratory Rate [Anterior Bilateral Throughout] Blood Pressure O2 Sat by Pulse 95 94 96 Oximetry 04/11/21 04/11/21 04/11/21 11:01 11:15 11:31 Temperature Pulse Rate 131 H 133 H 133 H Pulse Rate [ Anterior Bilateral Throughout] Pulse Rate [ From Monitor] Respiratory 23 22 21 Rate Respiratory Rate [Anterior Bilateral Throughout] Blood Pressure O2 Sat by Pulse 96 98 96 Oximetry 04/11/21 04/11/21 04/11/21 11:45 12:00 12:01 Temperature Pulse Rate 133 H 131 H 137 H Pulse Rate [ Anterior Bilateral Throughout] Pulse Rate [ 131 H From Monitor] Respiratory 22 30 H 21 Rate Respiratory Rate [Anterior Bilateral Throughout] Blood Pressure O2 Sat by Pulse 98 100 98 Oximetry 04/11/21 04/11/21 04/11/21 12:05 12:11 12:15 Temperature 101.1 F H Pulse Rate 136 H 136 H Pulse Rate [ Anterior Bilateral Throughout] Pulse Rate [ From Monitor] Respiratory 22 Rate Respiratory Rate [Anterior Bilateral Throughout] Blood Pressure 97/53 O2 Sat by Pulse 97 97 Oximetry 04/11/21 04/11/2104/11/21 12:31 12:45 13:01 Temperature Pulse Rate 135 H 135 H 134 H Pulse Rate [ Anterior Bilateral Throughout] Pulse Rate [ From Monitor] Respiratory 22 23 22 Rate Respiratory Rate [Anterior Bilateral Throughout] Blood Pressure O2 Sat by Pulse 93 96 95 Oximetry 04/11/21 04/11/21 04/11/21 13:15 13:31 13:45 Temperature Pulse Rate 134 H 133 H 135 H Pulse Rate [ Anterior Bilateral Throughout] Pulse Rate [ From Monitor] Respiratory 23 23 25 H Rate Respiratory Rate [Anterior Bilateral Throughout] Blood Pressure O2 Sat by Pulse 97 94 94 Oximetry 04/11/21 04/11/21 04/11/21 14:01 14:15 14:31 Temperature Pulse Rate 134 H 135 H 137 H Pulse Rate [ Anterior Bilateral Throughout] Pulse Rate [ From Monitor] Respiratory 25 H 22 28 H Rate Respiratory Rate [Anterior Bilateral Throughout] Blood Pressure O2 Sat by Pulse 94 93 99 Oximetry 04/11/21 04/11/21 04/11/21 14:40 14:45 15:01 Temperature Pulse Rate 133 H 129 H Pulse Rate [ 131 H Anterior Bilateral Throughout] Pulse Rate [ From Monitor] Respiratory 31 H 24 Rate Respiratory 32 H Rate [Anterior Bilateral Throughout] Blood Pressure O2 Sat by Pulse 100 99 Oximetry 04/11/21 04/11/21 04/11/21 15:15 15:46 15:57 Temperature Pulse Rate 141 H 134 H Pulse Rate [ Anterior Bilateral Throughout] Pulse Rate [ From Monitor] Respiratory 21 Rate Respiratory Rate [Anterior Bilateral Throughout] Blood Pressure 147/83 O2 Sat by Pulse 97 95 95 Oximetry 04/11/21 16:02 Temperature 101.9 F H Pulse Rate Pulse Rate [ Anterior Bilateral Throughout] Pulse Rate [ From Monitor] Respiratory Rate Respiratory Rate [Anterior Bilateral Throughout] Blood Pressure O2 Sat by Pulse Oximetry Constitutional: appears uncomfortable, other (morbidly obese female with no ventilator dyssynchrony, peeling skin rash, anarsaca) Eyes: non-icteric, other (scleral erythema / bleeding is improving) ENT: oropharynx moist, other (ETT 24 cm BALJINDER, suprior aspect of her lip, a full thickess wound) Neck: supple, no lymphadenopathy, no JVD, other (large circumference) Effort: mildly labored Ascultation: Bilateral: diminished breath sounds, rhonchi Percussion: Bilateral: not dull Cardiovascular: regular rate and rhythm, other (S1,S2) Gastrointestinal: normoactive bowel sounds, soft, non-tender, non-distended (protuberant) Integumentary: rash ( ), other Extremities: no cyanosis, pulses normal, no ischemia or petechiae, anasarca Neurologic: pupils equal and round, other (sedated) Psychiatric: other (unable to assess) CBC and BMP: 04/11/21 11:50 04/11/21 04:15 ABG, PT/INR, D-dimer: ABG ABG pH 7.192 (7.320-7.450) L 04/09/21 21:00 POC ABG pCO2 63.4 mmHg (32.0-48.0) H 04/09/21 21:00 ABG pCO2 83.8 mm Hg 04/08/21 09:55 POC ABG pO2 83.0 mmHg (83-108) 04/09/21 21:00 ABG pO2 75.9 mm Hg (80.0-90.0) L 04/08/21 09:55 POC ABG HCO3 23.8 04/09/21 21:00 ABG O2 Saturation 94.0 (0-100) 04/09/21 21:00 PT/INR, D-dimer PT 13.9 Sec. (12.2-14.9) 04/04/21 07:55 INR 0.96 (0.87-1.13) 04/04/21 07:55 D-Dimer 2696.79 ng/mlDDU (0-234) H 04/08/21 04:40 Abnormal lab findings: Abnormal Labs 03/13/21 03/13/21 03/13/21 13:26 13:26 15:40 WBC RBC Hgb Hct MCH 27 L MCHC RDW 17.0 H Plt Count Lymph % (Auto) [place] # (Auto) Eos # (Auto) Seg Neutrophils % Lymphocytes % (Manual) Eosinophils % (Manual) Basophils % (Manual) Nucleated RBC % Seg Neutrophils # Seg Neutrophils # Man Lymphocytes # (Manual) Monocytes # (Manual) Eosinophils # (Manual) Basophils # (Manual) Percent Retic PT INR Fibrinogen D-Dimer ABG pH POC ABG pCO2 POC ABG pO2 ABG pO2 ABG HCO3 ABG O2 Saturation ABG Base Excess ABG Hemoglobin ABG Oxyhemoglobin ABG Sodium ABG Potassium ABG Chloride ABG Glucose Oxyhemoglobin Carboxyhemoglobin Sodium 136 L Potassium Chloride Carbon Dioxide BUN Creatinine Glucose 125 H 130 H POC Glucose Hemoglobin A1c Calcium Phosphorus Magnesium AST ALT Alkaline Phosphatase Lactate Dehydrogenase 235 H C-Reactive Protein 4.30 H Total Protein Albumin Triglycerides Arterial Blood Glucose Arterial Blood Ionized Calcium Urine WBC (Auto) U Epithel Cells (Auto) Urine Creatinine Random Vancomycin Coronavirus (PCR) Crossmatch 03/13/21 03/14/21 03/14/21 21:33 03:35 06:21 WBC 20.0 H RBC Hgb Hct MCH 27 L MCHC RDW 17.5 H Plt Count Lymph % (Auto) 7.8 L [place] # (Auto) 1.3 H Eos # (Auto) Seg Neutrophils % 85.4 H Lymphocytes % (Manual) Eosinophils % (Manual) Basophils % (Manual) Nucleated RBC % Seg Neutrophils # 17.1 H Seg Neutrophils # Man Lymphocytes # (Manual) Monocytes # (Manual) Eosinophils # (Manual) Basophils # (Manual) Percent Retic PT INR Fibrinogen D-Dimer ABG pH 7.323 L 7.234 L POC ABG pCO2 POC ABG pO2 ABG pO2 69.8 L ABG HCO3 ABG O2 Saturation 92.9 L 94.9 L ABG Base Excess -3.3 L -5.4 L ABG Hemoglobin ABG Oxyhemoglobin ABG Sodium ABG Potassium ABG Chloride ABG Glucose Oxyhemoglobin 91.2 L 93.2 L Carboxyhemoglobin Sodium Potassium Chloride Carbon Dioxide BUN Creatinine Glucose POC Glucose Hemoglobin A1c Calcium Phosphorus Magnesium AST ALT Alkaline Phosphatase Lactate Dehydrogenase C-Reactive Protein Total Protein Albumin Triglycerides Arterial Blood Glucose Arterial Blood Ionized Calcium Urine WBC (Auto) U Epithel Cells (Auto) Urine Creatinine Random Vancomycin Coronavirus (PCR) Crossmatch 03/14/21 03/14/21 03/14/21 06:21 07:47 11:21 WBC RBC Hgb Hct MCH MCHC RDW Plt Count Lymph % (Auto) [place] # (Auto) Eos # (Auto) Seg Neutrophils % Lymphocytes % (Manual) Eosinophils % (Manual) Basophils % (Manual) Nucleated RBC % Seg Neutrophils # Seg Neutrophils # Man Lymphocytes # (Manual) Monocytes # (Manual) Eosinophils # (Manual) Basophils # (Manual) Percent Retic PT INR Fibrinogen D-Dimer ABG pH POC ABG pCO2 POC ABG pO2 ABG pO2 ABG HCO3 ABG O2 Saturation ABG Base Excess ABG Hemoglobin ABG Oxyhemoglobin ABG Sodium ABG Potassium ABG Chloride ABG Glucose Oxyhemoglobin Carboxyhemoglobin Sodium 136 L 136 L Potassium 6.2 H* D 5.4 H Chloride Carbon Dioxide 21 L 21 L BUN Creatinine 1.5 H D 1.8 H Glucose 144 H 141 H POC Glucose 147 H Hemoglobin A1c Calcium Phosphorus Magnesium AST ALT Alkaline Phosphatase Lactate Dehydrogenase C-Reactive Protein Total Protein 8.7 H 9.2 H Albumin 3.8 L Triglycerides Arterial Blood Glucose Arterial Blood Ionized Calcium Urine WBC (Auto) U Epithel Cells (Auto) Urine Creatinine Random Vancomycin Coronavirus (PCR) Crossmatch 03/14/21 03/14/21 03/14/21 17:29 17:50 18:35 WBC RBC Hgb Hct MCH MCHC RDW Plt Count Lymph % (Auto) [place] # (Auto) Eos # (Auto) Seg Neutrophils % Lymphocytes % (Manual) Eosinophils % (Manual) Basophils % (Manual) Nucleated RBC % Seg Neutrophils # Seg Neutrophils # Man Lymphocytes # (Manual) Monocytes # (Manual) Eosinophils # (Manual) Basophils # (Manual) Percent Retic PT INR Fibrinogen D-Dimer ABG pH POC ABG pCO2 POC ABG pO2 ABG pO2 ABG HCO3 ABG O2 Saturation ABG Base Excess ABG Hemoglobin ABG Oxyhemoglobin ABG Sodium ABG Potassium ABG Chloride ABG Glucose Oxyhemoglobin Carboxyhemoglobin Sodium 135 L Potassium 6.4 H* Chloride Carbon Dioxide 15 L BUN 26 H Creatinine 3.4 H D Glucose 165 H POC Glucose 209 H Hemoglobin A1c Calcium Phosphorus Magnesium AST ALT Alkaline Phosphatase Lactate Dehydrogenase C-Reactive Protein Total Protein Albumin Triglycerides Arterial Blood Glucose Arterial Blood Ionized Calcium Urine WBC (Auto) U Epithel Cells (Auto) Urine Creatinine 40.1 H Random Vancomycin Coronavirus (PCR) Crossmatch 03/14/21 03/14/21 03/14/21 18:46 22:23 23:52 WBC RBC Hgb Hct MCH MCHC RDW Plt Count Lymph % (Auto) [place] # (Auto) Eos # (Auto) Seg Neutrophils % Lymphocytes % (Manual) Eosinophils % (Manual) Basophils % (Manual) Nucleated RBC % Seg Neutrophils # Seg Neutrophils # Man Lymphocytes # (Manual) Monocytes # (Manual) Eosinophils # (Manual) Basophils # (Manual) Percent Retic PT INR Fibrinogen D-Dimer ABG pH 7.270 L POC ABG pCO2 POC ABG pO2 63.4 L ABG pO2 ABG HCO3 ABG O2 Saturation ABG Base Excess ABG Hemoglobin ABG Oxyhemoglobin 90.2 L ABG Sodium 134.9 L ABG Potassium 5.3 H ABG Chloride ABG Glucose 134 H Oxyhemoglobin Carboxyhemoglobin Sodium 136 L Potassium 5.2 H Chloride Carbon Dioxide 20 L BUN 29 H Creatinine 3.6 H Glucose 236 H POC Glucose 128 H Hemoglobin A1c Calcium Phosphorus Magnesium AST ALT Alkaline Phosphatase Lactate Dehydrogenase C-Reactive Protein Total Protein Albumin 3.2 L Triglycerides Arterial Blood Glucose 134 H Arterial Blood Ionized Calcium Urine WBC (Auto) U Epithel Cells (Auto) Urine Creatinine Random Vancomycin Coronavirus (PCR) Crossmatch 03/14/21 03/15/21 03/15/21 Unknown 05:00 05:09 WBC 22.5 H RBC Hgb Hct MCH 27 L MCHC RDW 17.6 H Plt Count Lymph % (Auto) [place] # (Auto) Eos # (Auto) Seg Neutrophils % Lymphocytes % (Manual) Eosinophils % (Manual) Basophils % (Manual) Nucleated RBC % Seg Neutrophils # Seg Neutrophils # Man Lymphocytes # (Manual) Monocytes # (Manual) Eosinophils # (Manual) Basophils # (Manual) Percent Retic PT INR Fibrinogen D-Dimer ABG pH POC ABG pCO2 POC ABG pO2 ABG pO2 ABG HCO3 ABG O2 Saturation ABG Base Excess ABG Hemoglobin ABG Oxyhemoglobin ABG Sodium ABG Potassium ABG Chloride ABG Glucose Oxyhemoglobin Carboxyhemoglobin Sodium Potassium Chloride Carbon Dioxide BUN Creatinine Glucose POC Glucose 116 H Hemoglobin A1c Calcium Phosphorus Magnesium AST ALT Alkaline Phosphatase Lactate Dehydrogenase C-Reactive Protein Total Protein Albumin Triglycerides Arterial Blood Glucose Arterial Blood Ionized Calcium Urine WBC (Auto) U Epithel Cells (Auto) Urine Creatinine Random Vancomycin Coronavirus (PCR) Positive A Crossmatch 03/15/21 03/15/21 03/15/21 05:09 05:09 05:09 WBC RBC Hgb Hct MCH MCHC RDW Plt Count Lymph % (Auto) [place] # (Auto) Eos # (Auto) Seg Neutrophils % Lymphocytes % (Manual) Eosinophils % (Manual) Basophils % (Manual) Nucleated RBC % Seg Neutrophils # Seg Neutrophils # Man Lymphocytes # (Manual) Monocytes # (Manual) Eosinophils # (Manual) Basophils # (Manual) Percent Retic PT INR Fibrinogen D-Dimer ABG pH POC ABG pCO2 POC ABG pO2 ABG pO2 ABG HCO3 ABG O2 Saturation ABG Base Excess ABG Hemoglobin ABG Oxyhemoglobin ABG Sodium ABG Potassium ABG Chloride ABG Glucose Oxyhemoglobin Carboxyhemoglobin Sodium 136 L Potassium 6.5 H* D Chloride Carbon Dioxide 17 L BUN 41 H Creatinine 5.3 H Glucose 128 H POC Glucose Hemoglobin A1c 6.3 H Calcium Phosphorus Magnesium AST ALT Alkaline Phosphatase Lactate Dehydrogenase C-Reactive Protein 12.10 H Total Protein Albumin 3.1 L Triglycerides Arterial Blood Glucose Arterial Blood Ionized Calcium Urine WBC (Auto) U Epithel Cells (Auto) Urine Creatinine Random Vancomycin Coronavirus (PCR) Crossmatch 03/15/21 03/15/21 03/15/21 10:00 21:50 23:39 WBC RBC Hgb Hct MCH MCHC RDW Plt Count Lymph % (Auto) [place] # (Auto) Eos # (Auto) Seg Neutrophils % Lymphocytes % (Manual) Eosinophils % (Manual) Basophils % (Manual) Nucleated RBC % Seg Neutrophils # Seg Neutrophils # Man Lymphocytes # (Manual) Monocytes # (Manual) Eosinophils # (Manual) Basophils # (Manual) Percent Retic PT INR Fibrinogen D-Dimer ABG pH 7.098 L POC ABG pCO2 72.7 H POC ABG pO2 ABG pO2 162.5 H ABG HCO3 ABG O2 Saturation ABG Base Excess ABG Hemoglobin 10.1 L ABG Oxyhemoglobin ABG Sodium ABG Potassium 5.7 H ABG Chloride ABG Glucose Oxyhemoglobin Carboxyhemoglobin 0.4 L Sodium Potassium Chloride Carbon Dioxide BUN Creatinine Glucose POC Glucose 156 H Hemoglobin A1c Calcium Phosphorus Magnesium AST ALT Alkaline Phosphatase Lactate Dehydrogenase C-Reactive Protein Total Protein Albumin Triglycerides Arterial Blood Glucose Arterial Blood Ionized Calcium Urine WBC (Auto) U Epithel Cells (Auto) Urine Creatinine Random Vancomycin Coronavirus (PCR) Crossmatch 03/16/21 03/16/21 03/16/21 05:00 05:30 05:30 WBC 16.7 H RBC 3.59 L Hgb 9.6 L Hct 30.1 L MCH 27 L MCHC RDW 17.5 H Plt Count Lymph % (Auto) [place] # (Auto) Eos # (Auto) Seg Neutrophils % Lymphocytes % (Manual) Eosinophils % (Manual) Basophils % (Manual) Nucleated RBC % Seg Neutrophils # Seg Neutrophils # Man Lymphocytes # (Manual) Monocytes # (Manual) Eosinophils # (Manual) Basophils # (Manual) Percent Retic PT INR Fibrinogen D-Dimer ABG pH POC ABG pCO2 POC ABG pO2 ABG pO2 ABG HCO3 ABG O2 Saturation ABG Base Excess ABG Hemoglobin ABG Oxyhemoglobin ABG Sodium ABG Potassium ABG Chloride ABG Glucose Oxyhemoglobin Carboxyhemoglobin Sodium Potassium Chloride Carbon Dioxide BUN 46 H Creatinine 6.2 H Glucose 131 H POC Glucose Hemoglobin A1c Calcium Phosphorus 6.00 H D Magnesium AST ALT Alkaline Phosphatase Lactate Dehydrogenase 318 H C-Reactive Protein 18.60 H Total Protein Albumin 3.0 L Triglycerides Arterial Blood Glucose Arterial Blood Ionized Calcium Urine WBC (Auto) U Epithel Cells (Auto) Urine Creatinine Random Vancomycin Coronavirus (PCR) Crossmatch 03/16/21 03/16/21 03/16/21 05:51 06:37 08:58 WBC RBC Hgb Hct MCH MCHC RDW Plt Count Lymph % (Auto) [place] # (Auto) Eos # (Auto) Seg Neutrophils % Lymphocytes % (Manual) Eosinophils % (Manual) Basophils % (Manual) Nucleated RBC % Seg Neutrophils # Seg Neutrophils # Man Lymphocytes # (Manual) Monocytes # (Manual) Eosinophils # (Manual) Basophils # (Manual) Percent Retic PT INR Fibrinogen D-Dimer 3041.12 H ABG pH POC ABG pCO2 POC ABG pO2 ABG pO2 141.5 H ABG HCO3 ABG O2 Saturation ABG Base Excess ABG Hemoglobin 9.7 L ABG Oxyhemoglobin ABG Sodium ABG Potassium ABG Chloride ABG Glucose Oxyhemoglobin Carboxyhemoglobin Sodium Potassium Chloride Carbon Dioxide BUN Creatinine Glucose POC Glucose 126 H Hemoglobin A1c Calcium Phosphorus Magnesium AST ALT Alkaline Phosphatase Lactate Dehydrogenase C-Reactive Protein Total Protein Albumin Triglycerides Arterial Blood Glucose Arterial Blood Ionized Calcium Urine WBC (Auto) U Epithel Cells (Auto) Urine Creatinine Random Vancomycin Coronavirus (PCR) Crossmatch 03/16/21 03/16/21 03/16/21 12:11 16:51 21:00 WBC RBC Hgb Hct MCH MCHC RDW Plt Count Lymph % (Auto) [place] # (Auto) Eos # (Auto) Seg Neutrophils % Lymphocytes % (Manual) Eosinophils % (Manual) Basophils % (Manual) Nucleated RBC % Seg Neutrophils # Seg Neutrophils # Man Lymphocytes # (Manual) Monocytes # (Manual) Eosinophils # (Manual) Basophils # (Manual) Percent Retic PT INR Fibrinogen D-Dimer ABG pH 7.239 L POC ABG pCO2 61.5 H POC ABG pO2 80.8 L ABG pO2 ABG HCO3 ABG O2 Saturation ABG Base Excess ABG Hemoglobin 11.4 L ABG Oxyhemoglobin 93.5 L ABG Sodium ABG Potassium 5.4 H ABG Chloride ABG Glucose 137 H Oxyhemoglobin Carboxyhemoglobin 0.2 L Sodium Potassium Chloride Carbon Dioxide BUN Creatinine Glucose POC Glucose 156 H 133 H Hemoglobin A1c Calcium Phosphorus Magnesium AST ALT Alkaline Phosphatase Lactate Dehydrogenase C-Reactive Protein Total Protein Albumin Triglycerides Arterial Blood Glucose 137 H Arterial Blood Ionized Calcium Urine WBC (Auto) U Epithel Cells (Auto) Urine Creatinine Random Vancomycin Coronavirus (PCR) Crossmatch 03/16/21 03/17/21 03/17/21 23:42 05:23 05:23 WBC 18.4 H RBC Hgb Hct MCH 27 L MCHC RDW 17.4 H Plt Count Lymph % (Auto) [place] # (Auto) Eos # (Auto) Seg Neutrophils % Lymphocytes % (Manual) Eosinophils % (Manual) Basophils % (Manual) Nucleated RBC % Seg Neutrophils # Seg Neutrophils # Man Lymphocytes # (Manual) Monocytes # (Manual) Eosinophils # (Manual) Basophils # (Manual) Percent Retic PT INR Fibrinogen D-Dimer ABG pH POC ABG pCO2 POC ABG pO2 ABG pO2 ABG HCO3 ABG O2 Saturation ABG Base Excess ABG Hemoglobin ABG Oxyhemoglobin ABG Sodium ABG Potassium ABG Chloride ABG Glucose Oxyhemoglobin Carboxyhemoglobin Sodium Potassium 5.2 H Chloride Carbon Dioxide 21 L BUN 79 H Creatinine 8.6 H Glucose 124 H POC Glucose 133 H Hemoglobin A1c Calcium Phosphorus Magnesium AST ALT Alkaline Phosphatase Lactate Dehydrogenase C-Reactive Protein Total Protein Albumin 3.2 L Triglycerides 285 H Arterial Blood Glucose Arterial Blood Ionized Calcium Urine WBC (Auto) U Epithel Cells (Auto) Urine Creatinine Random Vancomycin Coronavirus (PCR) Crossmatch 03/17/21 03/17/21 03/17/21 05:23 10:48 12:20 WBC RBC Hgb Hct MCH MCHC RDW Plt Count Lymph % (Auto) [place] # (Auto) Eos # (Auto) Seg Neutrophils % Lymphocytes % (Manual) Eosinophils % (Manual) Basophils % (Manual) Nucleated RBC % Seg Neutrophils # Seg Neutrophils # Man Lymphocytes # (Manual) Monocytes # (Manual) Eosinophils # (Manual) Basophils # (Manual) Percent Retic PT INR Fibrinogen D-Dimer ABG pH 7.294 L POC ABG pCO2 POC ABG pO2 ABG pO2 90.3 H ABG HCO3 ABG O2 Saturation ABG Base Excess ABG Hemoglobin 9.9 L ABG Oxyhemoglobin ABG Sodium ABG Potassium ABG Chloride ABG Glucose Oxyhemoglobin Carboxyhemoglobin Sodium Potassium 5.2 H Chloride Carbon Dioxide 21 L BUN 79 H Creatinine 8.4 H Glucose 125 H POC Glucose 171 H Hemoglobin A1c Calcium Phosphorus 9.90 H D Magnesium 2.40 H AST ALT Alkaline Phosphatase Lactate Dehydrogenase C-Reactive Protein Total Protein Albumin Triglycerides Arterial Blood Glucose Arterial Blood Ionized Calcium Urine WBC (Auto) U Epithel Cells (Auto) Urine Creatinine Random Vancomycin Coronavirus (PCR) Crossmatch 03/17/21 03/17/21 03/18/21 17:24 21:00 04:30 WBC RBC Hgb Hct MCH MCHC RDW Plt Count Lymph % (Auto) [place] # (Auto) Eos # (Auto) Seg Neutrophils % Lymphocytes % (Manual) Eosinophils % (Manual) Basophils % (Manual) Nucleated RBC % Seg Neutrophils # Seg Neutrophils # Man Lymphocytes # (Manual) Monocytes # (Manual) Eosinophils # (Manual) Basophils # (Manual) Percent Retic PT INR Fibrinogen D-Dimer 9953.09 H ABG pH 7.310 L POC ABG pCO2 54.5 H POC ABG pO2 62.3 L ABG pO2 ABG HCO3 ABG O2 Saturation ABG Base Excess ABG Hemoglobin 10.2 L ABG Oxyhemoglobin 88.6 L ABG Sodium ABG Potassium 4.7 H ABG Chloride ABG Glucose 99 H Oxyhemoglobin Carboxyhemoglobin 0.3 L Sodium Potassium Chloride Carbon Dioxide BUN Creatinine Glucose POC Glucose 121 H Hemoglobin A1c Calcium Phosphorus Magnesium AST ALT Alkaline Phosphatase Lactate Dehydrogenase C-Reactive Protein Total Protein Albumin Triglycerides Arterial Blood Glucose 99 H Arterial Blood Ionized Calcium 4.3 L Urine WBC (Auto) U Epithel Cells (Auto) Urine Creatinine Random Vancomycin Coronavirus (PCR) Crossmatch 03/18/21 03/18/21 03/18/21 04:30 04:30 11:34 WBC 12.8 H RBC 3.49 L Hgb 9.4 L Hct 29.3 L MCH 27 L MCHC RDW 17.4 H Plt Count Lymph % (Auto) [place] # (Auto) Eos # (Auto) Seg Neutrophils % Lymphocytes % (Manual) Eosinophils % (Manual) Basophils % (Manual) Nucleated RBC % Seg Neutrophils # Seg Neutrophils # Man Lymphocytes # (Manual) Monocytes # (Manual) Eosinophils # (Manual) Basophils # (Manual) Percent Retic PT INR Fibrinogen D-Dimer ABG pH POC ABG pCO2 POC ABG pO2 ABG pO2 ABG HCO3 ABG O2 Saturation ABG Base Excess ABG Hemoglobin ABG Oxyhemoglobin ABG Sodium ABG Potassium ABG Chloride ABG Glucose Oxyhemoglobin Carboxyhemoglobin Sodium Potassium Chloride Carbon Dioxide BUN 69 H Creatinine 7.3 H Glucose POC Glucose 114 H Hemoglobin A1c Calcium 8.2 L Phosphorus 7.60 H D Magnesium AST ALT Alkaline Phosphatase Lactate Dehydrogenase 477 H C-Reactive Protein 6.90 H Total Protein Albumin Triglycerides Arterial Blood Glucose Arterial Blood Ionized Calcium Urine WBC (Auto) U Epithel Cells (Auto) Urine Creatinine Random Vancomycin Coronavirus (PCR) Crossmatch 03/18/21 03/19/21 03/19/21 21:44 04:13 04:13 WBC 13.7 H RBC 3.32 L Hgb 9.0 L Hct 28.1 L MCH 27 L MCHC RDW 16.9 H Plt Count Lymph % (Auto) [place] # (Auto) Eos # (Auto) Seg Neutrophils % Lymphocytes % (Manual) Eosinophils % (Manual) Basophils % (Manual) Nucleated RBC % Seg Neutrophils # Seg Neutrophils # Man Lymphocytes # (Manual) Monocytes # (Manual) Eosinophils # (Manual) Basophils # (Manual) Percent Retic PT INR Fibrinogen D-Dimer ABG pH 7.290 L POC ABG pCO2 POC ABG pO2 ABG pO2 119.7 H ABG HCO3 28.0 H ABG O2 Saturation ABG Base Excess ABG Hemoglobin 9.6 L ABG Oxyhemoglobin ABG Sodium ABG Potassium ABG Chloride ABG Glucose Oxyhemoglobin Carboxyhemoglobin Sodium Potassium Chloride Carbon Dioxide BUN Creatinine Glucose POC Glucose Hemoglobin A1c Calcium Phosphorus Magnesium AST ALT Alkaline Phosphatase Lactate Dehydrogenase C-Reactive Protein Total Protein Albumin Triglycerides Arterial Blood Glucose Arterial Blood Ionized Calcium Urine WBC (Auto) U Epithel Cells (Auto) Urine Creatinine Random Vancomycin 43.5 H Coronavirus (PCR) Crossmatch 03/19/21 03/19/21 03/19/21 04:13 05:59 11:40 WBC RBC Hgb Hct MCH MCHC RDW Plt Count Lymph % (Auto) [place] # (Auto) Eos # (Auto) Seg Neutrophils % Lymphocytes % (Manual) Eosinophils % (Manual) Basophils % (Manual) Nucleated RBC % Seg Neutrophils # Seg Neutrophils # Man Lymphocytes # (Manual) Monocytes # (Manual) Eosinophils # (Manual) Basophils # (Manual) Percent Retic PT INR Fibrinogen D-Dimer ABG pH POC ABG pCO2 POC ABG pO2 ABG pO2 ABG HCO3 ABG O2 Saturation ABG Base Excess ABG Hemoglobin ABG Oxyhemoglobin ABG Sodium ABG Potassium ABG Chloride ABG Glucose Oxyhemoglobin Carboxyhemoglobin Sodium Potassium Chloride Carbon Dioxide BUN 55 H Creatinine 7.0 H Glucose POC Glucose 116 H 145 H Hemoglobin A1c Calcium 8.1 L Phosphorus 7.90 H Magnesium AST ALT Alkaline Phosphatase Lactate Dehydrogenase C-Reactive Protein Total Protein Albumin Triglycerides Arterial Blood Glucose Arterial Blood Ionized Calcium Urine WBC (Auto) U Epithel Cells (Auto) Urine Creatinine Random Vancomycin Coronavirus (PCR) Crossmatch 03/19/21 03/19/21 03/20/21 17:01 23:41 04:00 WBC 15.6 H RBC 3.55 L Hgb 9.6 L Hct MCH 27 L MCHC RDW 16.8 H Plt Count 139 L Lymph % (Auto) [place] # (Auto) Eos # (Auto) Seg Neutrophils % Lymphocytes % (Manual) Eosinophils % (Manual) Basophils % (Manual) Nucleated RBC % Seg Neutrophils # Seg Neutrophils # Man Lymphocytes # (Manual) Monocytes # (Manual) Eosinophils # (Manual) Basophils # (Manual) Percent Retic PT INR Fibrinogen D-Dimer ABG pH POC ABG pCO2 POC ABG pO2 ABG pO2 ABG HCO3 ABG O2 Saturation ABG Base Excess ABG Hemoglobin ABG Oxyhemoglobin ABG Sodium ABG Potassium ABG Chloride ABG Glucose Oxyhemoglobin Carboxyhemoglobin Sodium Potassium Chloride Carbon Dioxide BUN Creatinine Glucose POC Glucose 111 H 118 H Hemoglobin A1c Calcium Phosphorus Magnesium AST ALT Alkaline Phosphatase Lactate Dehydrogenase C-Reactive Protein Total Protein Albumin Triglycerides Arterial Blood Glucose Arterial Blood Ionized Calcium Urine WBC (Auto) U Epithel Cells (Auto) Urine Creatinine Random Vancomycin Coronavirus (PCR) Crossmatch 03/20/21 03/20/21 03/20/21 04:00 04:00 04:37 WBC RBC Hgb Hct MCH MCHC RDW Plt Count Lymph % (Auto) [place] # (Auto) Eos # (Auto) Seg Neutrophils % Lymphocytes % (Manual) Eosinophils % (Manual) Basophils % (Manual) Nucleated RBC % Seg Neutrophils # Seg Neutrophils # Man Lymphocytes # (Manual) Monocytes # (Manual) Eosinophils # (Manual) Basophils # (Manual) Percent Retic PT INR Fibrinogen D-Dimer > 76521 H ABG pH 7.306 L POC ABG pCO2 POC ABG pO2 ABG pO2 ABG HCO3 27.9 H ABG O2 Saturation ABG Base Excess ABG Hemoglobin 5.2 L ABG Oxyhemoglobin ABG Sodium ABG Potassium ABG Chloride ABG Glucose Oxyhemoglobin Carboxyhemoglobin Sodium Potassium 5.2 H Chloride 97.6 L Carbon Dioxide BUN 52 H Creatinine 6.2 H Glucose 104 H POC Glucose Hemoglobin A1c Calcium Phosphorus 8.60 H Magnesium AST ALT Alkaline Phosphatase Lactate Dehydrogenase C-Reactive Protein 6.90 H Total Protein Albumin Triglycerides Arterial Blood Glucose Arterial Blood Ionized Calcium Urine WBC (Auto) U Epithel Cells (Auto) Urine Creatinine Random Vancomycin Coronavirus (PCR) Crossmatch 03/20/21 03/20/21 03/20/21 13:50 17:46 17:56 WBC RBC Hgb Hct MCH MCHC RDW Plt Count Lymph % (Auto) [place] # (Auto) Eos # (Auto) Seg Neutrophils % Lymphocytes % (Manual) Eosinophils % (Manual) Basophils % (Manual) Nucleated RBC % Seg Neutrophils # Seg Neutrophils # Man Lymphocytes # (Manual) Monocytes # (Manual) Eosinophils # (Manual) Basophils # (Manual) Percent Retic PT INR Fibrinogen D-Dimer ABG pH POC ABG pCO2 POC ABG pO2 ABG pO2 ABG HCO3 ABG O2 Saturation ABG Base Excess ABG Hemoglobin ABG Oxyhemoglobin ABG Sodium ABG Potassium ABG Chloride ABG Glucose Oxyhemoglobin Carboxyhemoglobin Sodium Potassium Chloride Carbon Dioxide BUN 63 H 43 H Creatinine Glucose POC Glucose 145 H Hemoglobin A1c Calcium Phosphorus Magnesium AST ALT Alkaline Phosphatase Lactate Dehydrogenase C-Reactive Protein Total Protein Albumin Triglycerides Arterial Blood Glucose Arterial Blood Ionized Calcium Urine WBC (Auto) U Epithel Cells (Auto) Urine Creatinine Random Vancomycin Coronavirus (PCR) Crossmatch 03/20/21 03/21/21 03/21/21 23:18 06:58 06:58 WBC 14.4 H RBC 3.41 L Hgb 9.5 L Hct 28.6 L MCH MCHC RDW 17.4 H Plt Count 107 L Lymph % (Auto) [place] # (Auto) Eos # (Auto) Seg Neutrophils % Lymphocytes % (Manual) Eosinophils % (Manual) Basophils % (Manual) Nucleated RBC % Seg Neutrophils # Seg Neutrophils # Man Lymphocytes # (Manual) Monocytes # (Manual) Eosinophils # (Manual) Basophils # (Manual) Percent Retic PT INR Fibrinogen D-Dimer ABG pH POC ABG pCO2 POC ABG pO2 ABG pO2 ABG HCO3 ABG O2 Saturation ABG Base Excess ABG Hemoglobin ABG Oxyhemoglobin ABG Sodium ABG Potassium ABG Chloride ABG Glucose Oxyhemoglobin Carboxyhemoglobin Sodium Potassium Chloride Carbon Dioxide BUN 60 H Creatinine 7.7 H Glucose POC Glucose 106 H Hemoglobin A1c Calcium Phosphorus Magnesium AST ALT Alkaline Phosphatase Lactate Dehydrogenase C-Reactive Protein Total Protein Albumin Triglycerides Arterial Blood Glucose Arterial Blood Ionized Calcium Urine WBC (Auto) U Epithel Cells (Auto) Urine Creatinine Random Vancomycin Coronavirus (PCR) Crossmatch 03/21/21 03/21/21 03/21/21 11:11 18:04 Unknown WBC RBC Hgb Hct MCH MCHC RDW Plt Count Lymph % (Auto) [place] # (Auto) Eos # (Auto) Seg Neutrophils % Lymphocytes % (Manual) Eosinophils % (Manual) Basophils % (Manual) Nucleated RBC % Seg Neutrophils # Seg Neutrophils # Man Lymphocytes # (Manual) Monocytes # (Manual) Eosinophils # (Manual) Basophils # (Manual) Percent Retic PT INR Fibrinogen D-Dimer ABG pH 7.270 L POC ABG pCO2 58.7 H POC ABG pO2 76.9 L ABG pO2 ABG HCO3 ABG O2 Saturation ABG Base Excess ABG Hemoglobin 9.9 L ABG Oxyhemoglobin 92.4 L ABG Sodium 135.8 L ABG Potassium 4.6 H ABG Chloride ABG Glucose Oxyhemoglobin Carboxyhemoglobin 0.1 L Sodium Potassium Chloride Carbon Dioxide BUN Creatinine Glucose POC Glucose 109 H 141 H Hemoglobin A1c Calcium Phosphorus Magnesium AST ALT Alkaline Phosphatase Lactate Dehydrogenase C-Reactive Protein Total Protein Albumin Triglycerides Arterial Blood Glucose Arterial Blood Ionized Calcium 4.5 L Urine WBC (Auto) U Epithel Cells (Auto) Urine Creatinine Random Vancomycin Coronavirus (PCR) Crossmatch 03/22/21 03/22/21 03/22/21 03:09 07:10 10:00 WBC RBC Hgb Hct MCH MCHC RDW Plt Count Lymph % (Auto) [place] # (Auto) Eos # (Auto) Seg Neutrophils % Lymphocytes % (Manual) Eosinophils % (Manual) Basophils % (Manual) Nucleated RBC % Seg Neutrophils # Seg Neutrophils # Man Lymphocytes # (Manual) Monocytes # (Manual) Eosinophils # (Manual) Basophils # (Manual) Percent Retic PT INR Fibrinogen D-Dimer ABG pH 7.206 L 7.245 L POC ABG pCO2 55.6 H POC ABG pO2 ABG pO2 90.6 H ABG HCO3 ABG O2 Saturation ABG Base Excess -4.4 L ABG Hemoglobin 9.0 L 8.4 L ABG Oxyhemoglobin ABG Sodium 123.4 L ABG Potassium 5.6 H ABG Chloride ABG Glucose 106 H Oxyhemoglobin 94.5 L Carboxyhemoglobin 0.1 L Sodium Potassium 5.4 H Chloride 96.8 L Carbon Dioxide BUN 89 H Creatinine 8.7 H Glucose 131 H POC Glucose Hemoglobin A1c Calcium Phosphorus Magnesium AST ALT Alkaline Phosphatase Lactate Dehydrogenase C-Reactive Protein 9.40 H Total Protein Albumin Triglycerides Arterial Blood Glucose 106 H Arterial Blood Ionized Calcium Urine WBC (Auto) U Epithel Cells (Auto) Urine Creatinine Random Vancomycin Coronavirus (PCR) Crossmatch 03/22/21 03/22/21 03/22/21 10:00 12:37 13:19 WBC RBC 3.05 L Hgb 8.4 L Hct 25.5 L MCH MCHC RDW 17.5 H Plt Count 108 L Lymph % (Auto) [place] # (Auto) Eos # (Auto) Seg Neutrophils % Lymphocytes % (Manual) Eosinophils % (Manual) Basophils % (Manual) Nucleated RBC % Seg Neutrophils # Seg Neutrophils # Man Lymphocytes # (Manual) Monocytes # (Manual) Eosinophils # (Manual) Basophils # (Manual) Percent Retic PT INR Fibrinogen D-Dimer ABG pH POC ABG pCO2 POC ABG pO2 ABG pO2 ABG HCO3 ABG O2 Saturation ABG Base Excess ABG Hemoglobin ABG Oxyhemoglobin ABG Sodium ABG Potassium ABG Chloride ABG Glucose Oxyhemoglobin Carboxyhemoglobin Sodium Potassium Chloride Carbon Dioxide BUN Creatinine 8.7 H Glucose POC Glucose 140 H Hemoglobin A1c Calcium Phosphorus Magnesium AST ALT Alkaline Phosphatase Lactate Dehydrogenase C-Reactive Protein Total Protein Albumin Triglycerides Arterial Blood Glucose Arterial Blood Ionized Calcium Urine WBC (Auto) U Epithel Cells (Auto) Urine Creatinine Random Vancomycin Coronavirus (PCR) Crossmatch 03/22/21 03/22/21 03/22/21 13:40 17:14 18:21 WBC RBC Hgb Hct MCH MCHC RDW Plt Count Lymph % (Auto) [place] # (Auto) Eos # (Auto) Seg Neutrophils % Lymphocytes % (Manual) Eosinophils % (Manual) Basophils % (Manual) Nucleated RBC % Seg Neutrophils # Seg Neutrophils # Man Lymphocytes # (Manual) Monocytes # (Manual) Eosinophils # (Manual) Basophils # (Manual) Percent Retic PT 15.8 H INR 1.14 H Fibrinogen D-Dimer > 87972 H ABG pH POC ABG pCO2 POC ABG pO2 ABG pO2 ABG HCO3 ABG O2 Saturation ABG Base Excess ABG Hemoglobin ABG Oxyhemoglobin ABG Sodium ABG Potassium ABG Chloride ABG Glucose Oxyhemoglobin Carboxyhemoglobin Sodium Potassium Chloride Carbon Dioxide BUN Creatinine Glucose POC Glucose 117 H 112 H Hemoglobin A1c Calcium Phosphorus Magnesium AST ALT Alkaline Phosphatase Lactate Dehydrogenase C-Reactive Protein Total Protein Albumin Triglycerides Arterial Blood Glucose Arterial Blood Ionized Calcium Urine WBC (Auto) U Epithel Cells (Auto) Urine Creatinine Random Vancomycin Coronavirus (PCR) Crossmatch 03/22/21 03/22/21 03/23/21 21:25 22:57 04:30 WBC RBC Hgb Hct MCH MCHC RDW Plt Count Lymph % (Auto) [place] # (Auto) Eos # (Auto) Seg Neutrophils % Lymphocytes % (Manual) Eosinophils % (Manual) Basophils % (Manual) Nucleated RBC % Seg Neutrophils # Seg Neutrophils # Man Lymphocytes # (Manual) Monocytes # (Manual) Eosinophils # (Manual) Basophils # (Manual) Percent Retic PT INR Fibrinogen D-Dimer ABG pH 7.188 L* POC ABG pCO2 POC ABG pO2 ABG pO2 97.9 H ABG HCO3 ABG O2 Saturation ABG Base Excess -3.7 L ABG Hemoglobin 9.2 L ABG Oxyhemoglobin ABG Sodium ABG Potassium ABG Chloride ABG Glucose Oxyhemoglobin 94.4 L Carboxyhemoglobin Sodium Potassium Chloride Carbon Dioxide BUN Creatinine Glucose POC Glucose 106 H Hemoglobin A1c Calcium Phosphorus Magnesium AST ALT Alkaline Phosphatase Lactate Dehydrogenase C-Reactive Protein Total Protein Albumin Triglycerides 381 H Arterial Blood Glucose Arterial Blood Ionized Calcium Urine WBC (Auto) U Epithel Cells (Auto) Urine Creatinine Random Vancomycin Coronavirus (PCR) Crossmatch 03/23/21 03/23/21 03/23/21 04:30 04:30 05:37 WBC 20.1 H RBC 3.17 L Hgb 8.6 L Hct 27.2 L MCH 27 L MCHC RDW 17.4 H Plt Count 118 L Lymph % (Auto) [place] # (Auto) Eos # (Auto) Seg Neutrophils % Lymphocytes % (Manual) Eosinophils % (Manual) Basophils % (Manual) Nucleated RBC % Seg Neutrophils # Seg Neutrophils # Man Lymphocytes # (Manual) Monocytes # (Manual) Eosinophils # (Manual) Basophils # (Manual) Percent Retic PT INR Fibrinogen D-Dimer ABG pH POC ABG pCO2 POC ABG pO2 ABG pO2 ABG HCO3 ABG O2 Saturation ABG Base Excess ABG Hemoglobin ABG Oxyhemoglobin ABG Sodium ABG Potassium ABG Chloride ABG Glucose Oxyhemoglobin Carboxyhemoglobin Sodium Potassium 5.2 H Chloride 97.1 L Carbon Dioxide 21 L BUN 82 H Creatinine 9.1 H Glucose 109 H POC Glucose 130 H Hemoglobin A1c Calcium Phosphorus 10.80 H Magnesium 3.50 H AST ALT Alkaline Phosphatase Lactate Dehydrogenase C-Reactive Protein Total Protein Albumin Triglycerides Arterial Blood Glucose Arterial Blood Ionized Calcium Urine WBC (Auto) U Epithel Cells (Auto) Urine Creatinine Random Vancomycin Coronavirus (PCR) Crossmatch 03/23/21 03/23/21 03/23/21 08:44 11:30 16:09 WBC RBC Hgb Hct MCH MCHC RDW Plt Count Lymph % (Auto) [place] # (Auto) Eos # (Auto) Seg Neutrophils % Lymphocytes % (Manual) Eosinophils % (Manual) Basophils % (Manual) Nucleated RBC % Seg Neutrophils # Seg Neutrophils # Man Lymphocytes # (Manual) Monocytes # (Manual) Eosinophils # (Manual) Basophils # (Manual) Percent Retic PT INR Fibrinogen D-Dimer ABG pH 7.190 L POC ABG pCO2 57.9 H POC ABG pO2 79.2 L ABG pO2 ABG HCO3 ABG O2 Saturation ABG Base Excess ABG Hemoglobin 11.8 L ABG Oxyhemoglobin 92.3 L ABG Sodium 131.0 L ABG Potassium 5.0 H ABG Chloride ABG Glucose 122 H Oxyhemoglobin Carboxyhemoglobin 0.4 L Sodium Potassium Chloride Carbon Dioxide BUN Creatinine Glucose POC Glucose 129 H 148 H Hemoglobin A1c Calcium Phosphorus Magnesium AST ALT Alkaline Phosphatase Lactate Dehydrogenase C-Reactive Protein Total Protein Albumin Triglycerides Arterial Blood Glucose 122 H Arterial Blood Ionized Calcium 4.4 L Urine WBC (Auto) U Epithel Cells (Auto) Urine Creatinine Random Vancomycin Coronavirus (PCR) Crossmatch 03/23/21 03/24/21 03/24/21 21:00 03:35 04:00 WBC 17.8 H RBC 2.96 L Hgb 8.1 L Hct 25.0 L MCH 27 L MCHC RDW 17.7 H Plt Count 124 L Lymph % (Auto) [place] # (Auto) Eos # (Auto) Seg Neutrophils % Lymphocytes % (Manual) Eosinophils % (Manual) Basophils % (Manual) Nucleated RBC % Seg Neutrophils # Seg Neutrophils # Man Lymphocytes # (Manual) Monocytes # (Manual) Eosinophils # (Manual) Basophils # (Manual) Percent Retic PT INR Fibrinogen D-Dimer ABG pH 7.223 L POC ABG pCO2 50.3 H POC ABG pO2 114.4 H ABG pO2 ABG HCO3 ABG O2 Saturation ABG Base Excess ABG Hemoglobin 8.8 L ABG Oxyhemoglobin ABG Sodium 130.4 L ABG Potassium 5.1 H ABG Chloride ABG Glucose 126 H Oxyhemoglobin Carboxyhemoglobin 0.2 L Sodium Potassium Chloride Carbon Dioxide BUN Creatinine Glucose POC Glucose 148 H Hemoglobin A1c Calcium Phosphorus Magnesium AST ALT Alkaline Phosphatase Lactate Dehydrogenase C-Reactive Protein Total Protein Albumin Triglycerides Arterial Blood Glucose 126 H Arterial Blood Ionized Calcium 4.4 L Urine WBC (Auto) U Epithel Cells (Auto) Urine Creatinine Random Vancomycin Coronavirus (PCR) Crossmatch 03/24/21 03/24/21 03/24/21 04:00 06:49 12:29 WBC RBC Hgb Hct MCH MCHC RDW Plt Count Lymph % (Auto) [place] # (Auto) Eos # (Auto) Seg Neutrophils % Lymphocytes % (Manual) Eosinophils % (Manual) Basophils % (Manual) Nucleated RBC % Seg Neutrophils # Seg Neutrophils # Man Lymphocytes # (Manual) Monocytes # (Manual) Eosinophils # (Manual) Basophils # (Manual) Percent Retic PT INR Fibrinogen D-Dimer ABG pH POC ABG pCO2 POC ABG pO2 ABG pO2 ABG HCO3 ABG O2 Saturation ABG Base Excess ABG Hemoglobin ABG Oxyhemoglobin ABG Sodium ABG Potassium ABG Chloride ABG Glucose Oxyhemoglobin Carboxyhemoglobin Sodium Potassium Chloride 95.6 L Carbon Dioxide 20 L BUN 108 H Creatinine 10.8 H Glucose 155 H POC Glucose 136 H 142 H Hemoglobin A1c Calcium Phosphorus Magnesium AST ALT Alkaline Phosphatase Lactate Dehydrogenase C-Reactive Protein Total Protein Albumin Triglycerides Arterial Blood Glucose Arterial Blood Ionized Calcium Urine WBC (Auto) U Epithel Cells (Auto) Urine Creatinine Random Vancomycin Coronavirus (PCR) Crossmatch 03/24/21 03/25/21 03/25/21 21:35 00:15 05:51 WBC RBC Hgb Hct MCH MCHC RDW Plt Count Lymph % (Auto) [place] # (Auto) Eos # (Auto) Seg Neutrophils % Lymphocytes % (Manual) Eosinophils % (Manual) Basophils % (Manual) Nucleated RBC % Seg Neutrophils # Seg Neutrophils # Man Lymphocytes # (Manual) Monocytes # (Manual) Eosinophils # (Manual) Basophils # (Manual) Percent Retic PT INR Fibrinogen D-Dimer ABG pH 7.241 L POC ABG pCO2 POC ABG pO2 ABG pO2 72.4 L ABG HCO3 ABG O2 Saturation 90.3 L ABG Base Excess ABG Hemoglobin 7.9 L ABG Oxyhemoglobin ABG Sodium ABG Potassium ABG Chloride ABG Glucose Oxyhemoglobin 88.4 L Carboxyhemoglobin Sodium Potassium Chloride Carbon Dioxide BUN Creatinine Glucose POC Glucose 110 H 121 H Hemoglobin A1c Calcium Phosphorus Magnesium AST ALT Alkaline Phosphatase Lactate Dehydrogenase C-Reactive Protein Total Protein Albumin Triglycerides Arterial Blood Glucose Arterial Blood Ionized Calcium Urine WBC (Auto) U Epithel Cells (Auto) Urine Creatinine Random Vancomycin Coronavirus (PCR) Crossmatch 03/25/21 03/25/21 03/25/21 05:54 05:54 12:21 WBC 12.4 H RBC 2.52 L Hgb 6.9 L Hct 21.1 L MCH MCHC RDW 17.4 H Plt Count 102 L Lymph % (Auto) [place] # (Auto) Eos # (Auto) Seg Neutrophils % Lymphocytes % (Manual) Eosinophils % (Manual) Basophils % (Manual) Nucleated RBC % Seg Neutrophils # Seg Neutrophils # Man Lymphocytes # (Manual) Monocytes # (Manual) Eosinophils # (Manual) Basophils # (Manual) Percent Retic PT INR Fibrinogen D-Dimer ABG pH POC ABG pCO2 POC ABG pO2 ABG pO2 ABG HCO3 ABG O2 Saturation ABG Base Excess ABG Hemoglobin ABG Oxyhemoglobin ABG Sodium ABG Potassium ABG Chloride ABG Glucose Oxyhemoglobin Carboxyhemoglobin Sodium Potassium Chloride 96.7 L Carbon Dioxide BUN 81 H Creatinine 8.1 H Glucose 116 H POC Glucose 138 H Hemoglobin A1c Calcium 8.2 L Phosphorus Magnesium AST ALT Alkaline Phosphatase Lactate Dehydrogenase C-Reactive Protein Total Protein Albumin Triglycerides Arterial Blood Glucose Arterial Blood Ionized Calcium Urine WBC (Auto) U Epithel Cells (Auto) Urine Creatinine Random Vancomycin Coronavirus (PCR) Crossmatch 03/25/21 03/25/21 03/25/21 13:45 17:32 21:30 WBC RBC Hgb Hct MCH MCHC RDW Plt Count Lymph % (Auto) [place] # (Auto) Eos # (Auto) Seg Neutrophils % Lymphocytes % (Manual) Eosinophils % (Manual) Basophils % (Manual) Nucleated RBC % Seg Neutrophils # Seg Neutrophils # Man Lymphocytes # (Manual) Monocytes # (Manual) Eosinophils # (Manual) Basophils # (Manual) Percent Retic PT INR Fibrinogen D-Dimer ABG pH POC ABG pCO2 POC ABG pO2 ABG pO2 70.2 L ABG HCO3 ABG O2 Saturation ABG Base Excess ABG Hemoglobin 6.8 L ABG Oxyhemoglobin ABG Sodium ABG Potassium ABG Chloride ABG Glucose Oxyhemoglobin 94.5 L Carboxyhemoglobin Sodium Potassium Chloride Carbon Dioxide BUN Creatinine Glucose POC Glucose 110 H Hemoglobin A1c Calcium Phosphorus Magnesium AST ALT Alkaline Phosphatase Lactate Dehydrogenase C-Reactive Protein Total Protein Albumin Triglycerides Arterial Blood Glucose Arterial Blood Ionized Calcium Urine WBC (Auto) U Epithel Cells (Auto) Urine Creatinine Random Vancomycin Coronavirus (PCR) Crossmatch See Detail 03/25/21 03/25/21 03/26/21 23:29 Unknown 05:15 WBC 12.4 H 14.0 H RBC 2.49 L 2.83 L Hgb 6.8 L 7.6 L Hct 20.9 L 23.6 L MCH 27 L 27 L MCHC RDW 18.0 H 17.1 H Plt Count 107 L 116 L Lymph % (Auto) [place] # (Auto) Eos # (Auto) Seg Neutrophils % Lymphocytes % (Manual) Eosinophils % (Manual) Basophils % (Manual) Nucleated RBC % Seg Neutrophils # Seg Neutrophils # Man Lymphocytes # (Manual) Monocytes # (Manual) Eosinophils # (Manual) Basophils # (Manual) Percent Retic PT INR Fibrinogen D-Dimer ABG pH POC ABG pCO2 POC ABG pO2 ABG pO2 ABG HCO3 ABG O2 Saturation ABG Base Excess ABG Hemoglobin ABG Oxyhemoglobin ABG Sodium ABG Potassium ABG Chloride ABG Glucose Oxyhemoglobin Carboxyhemoglobin Sodium Potassium Chloride Carbon Dioxide BUN Creatinine Glucose POC Glucose 113 H Hemoglobin A1c Calcium Phosphorus Magnesium AST ALT Alkaline Phosphatase Lactate Dehydrogenase C-Reactive Protein Total Protein Albumin Triglycerides Arterial Blood Glucose Arterial Blood Ionized Calcium Urine WBC (Auto) U Epithel Cells (Auto) Urine Creatinine Random Vancomycin Coronavirus (PCR) Crossmatch 03/26/21 03/26/21 03/26/21 05:15 05:35 09:50 WBC RBC Hgb Hct MCH MCHC RDW Plt Count Lymph % (Auto) [place] # (Auto) Eos # (Auto) Seg Neutrophils % Lymphocytes % (Manual) Eosinophils % (Manual) Basophils % (Manual) Nucleated RBC % Seg Neutrophils # Seg Neutrophils # Man Lymphocytes # (Manual) Monocytes # (Manual) Eosinophils # (Manual) Basophils # (Manual) Percent Retic PT INR Fibrinogen D-Dimer ABG pH POC ABG pCO2 POC ABG pO2 ABG pO2 79.9 L ABG HCO3 ABG O2 Saturation ABG Base Excess ABG Hemoglobin 7.1 L ABG Oxyhemoglobin ABG Sodium ABG Potassium ABG Chloride ABG Glucose Oxyhemoglobin 94.9 L Carboxyhemoglobin Sodium Potassium 3.4 L Chloride Carbon Dioxide BUN 70 H Creatinine 7.3 H Glucose 142 H POC Glucose 130 H Hemoglobin A1c Calcium 8.2 L Phosphorus Magnesium AST ALT Alkaline Phosphatase Lactate Dehydrogenase C-Reactive Protein Total Protein Albumin Triglycerides 254 H Arterial Blood Glucose Arterial Blood Ionized Calcium Urine WBC (Auto) U Epithel Cells (Auto) Urine Creatinine Random Vancomycin Coronavirus (PCR) Crossmatch 03/26/21 03/26/21 03/26/21 11:45 16:36 23:33 WBC RBC Hgb Hct MCH MCHC RDW Plt Count Lymph % (Auto) [place] # (Auto) Eos # (Auto) Seg Neutrophils % Lymphocytes % (Manual) Eosinophils % (Manual) Basophils % (Manual) Nucleated RBC % Seg Neutrophils # Seg Neutrophils # Man Lymphocytes # (Manual) Monocytes # (Manual) Eosinophils # (Manual) Basophils # (Manual) Percent Retic PT INR Fibrinogen D-Dimer ABG pH POC ABG pCO2 POC ABG pO2 ABG pO2 ABG HCO3 ABG O2 Saturation ABG Base Excess ABG Hemoglobin ABG Oxyhemoglobin ABG Sodium ABG Potassium ABG Chloride ABG Glucose Oxyhemoglobin Carboxyhemoglobin Sodium Potassium Chloride Carbon Dioxide BUN Creatinine Glucose POC Glucose 123 H 121 H 120 H Hemoglobin A1c Calcium Phosphorus Magnesium AST ALT Alkaline Phosphatase Lactate Dehydrogenase C-Reactive Protein Total Protein Albumin Triglycerides Arterial Blood Glucose Arterial Blood Ionized Calcium Urine WBC (Auto) U Epithel Cells (Auto) Urine Creatinine Random Vancomycin Coronavirus (PCR) Crossmatch 03/27/21 03/27/21 03/27/21 03:20 04:14 08:20 WBC 13.2 H RBC 2.82 L Hgb 7.9 L Hct 23.5 L MCH MCHC RDW 17.3 H Plt Count 125 L Lymph % (Auto) [place] # (Auto) Eos # (Auto) Seg Neutrophils % Lymphocytes % (Manual) Eosinophils % (Manual) Basophils % (Manual) Nucleated RBC % Seg Neutrophils # Seg Neutrophils # Man Lymphocytes # (Manual) Monocytes # (Manual) Eosinophils # (Manual) Basophils # (Manual) Percent Retic PT INR Fibrinogen D-Dimer ABG pH POC ABG pCO2 50.0 H POC ABG pO2 58.3 L ABG pO2 ABG HCO3 ABG O2 Saturation ABG Base Excess ABG Hemoglobin 11.3 L ABG Oxyhemoglobin 88.5 L ABG Sodium ABG Potassium ABG Chloride ABG Glucose 132 H Oxyhemoglobin Carboxyhemoglobin 0.2 L Sodium Potassium Chloride Carbon Dioxide BUN Creatinine Glucose POC Glucose 119 H Hemoglobin A1c Calcium Phosphorus Magnesium AST ALT Alkaline Phosphatase Lactate Dehydrogenase C-Reactive Protein Total Protein Albumin Triglycerides Arterial Blood Glucose 132 H Arterial Blood Ionized Calcium Urine WBC (Auto) U Epithel Cells (Auto) Urine Creatinine Random Vancomycin Coronavirus (PCR) Crossmatch 03/27/21 03/27/21 03/27/21 08:20 11:39 17:32 WBC RBC Hgb Hct MCH MCHC RDW Plt Count Lymph % (Auto) [place] # (Auto) Eos # (Auto) Seg Neutrophils % Lymphocytes % (Manual) Eosinophils % (Manual) Basophils % (Manual) Nucleated RBC % Seg Neutrophils # Seg Neutrophils # Man Lymphocytes # (Manual) Monocytes # (Manual) Eosinophils # (Manual) Basophils # (Manual) Percent Retic PT INR Fibrinogen D-Dimer ABG pH POC ABG pCO2 POC ABG pO2 ABG pO2 ABG HCO3 ABG O2 Saturation ABG Base Excess ABG Hemoglobin ABG Oxyhemoglobin ABG Sodium ABG Potassium ABG Chloride ABG Glucose Oxyhemoglobin Carboxyhemoglobin Sodium Potassium Chloride Carbon Dioxide BUN 57 H Creatinine 6.8 H Glucose 131 H POC Glucose 121 H 126 H Hemoglobin A1c Calcium Phosphorus Magnesium AST ALT Alkaline Phosphatase Lactate Dehydrogenase C-Reactive Protein Total Protein Albumin Triglycerides Arterial Blood Glucose Arterial Blood Ionized Calcium Urine WBC (Auto) U Epithel Cells (Auto) Urine Creatinine Random Vancomycin Coronavirus (PCR) Crossmatch 03/28/21 03/28/21 03/28/21 00:10 04:45 05:25 WBC RBC Hgb Hct MCH MCHC RDW Plt Count Lymph % (Auto) [place] # (Auto) Eos # (Auto) Seg Neutrophils % Lymphocytes % (Manual) Eosinophils % (Manual) Basophils % (Manual) Nucleated RBC % Seg Neutrophils # Seg Neutrophils # Man Lymphocytes # (Manual) Monocytes # (Manual) Eosinophils # (Manual) Basophils # (Manual) Percent Retic PT INR Fibrinogen D-Dimer ABG pH POC ABG pCO2 POC ABG pO2 ABG pO2 57.6 L ABG HCO3 27.1 H ABG O2 Saturation 88.5 L ABG Base Excess ABG Hemoglobin ABG Oxyhemoglobin ABG Sodium ABG Potassium ABG Chloride ABG Glucose Oxyhemoglobin 86.6 L Carboxyhemoglobin Sodium Potassium Chloride Carbon Dioxide BUN Creatinine Glucose POC Glucose 113 H 121 H Hemoglobin A1c Calcium Phosphorus Magnesium AST ALT Alkaline Phosphatase Lactate Dehydrogenase C-Reactive Protein Total Protein Albumin Triglycerides Arterial Blood Glucose Arterial Blood Ionized Calcium Urine WBC (Auto) U Epithel Cells (Auto) Urine Creatinine Random Vancomycin Coronavirus (PCR) Crossmatch 03/28/21 03/28/21 03/28/21 09:37 09:37 11:48 WBC 16.3 H RBC 2.92 L Hgb 8.2 L Hct 24.8 L MCH MCHC RDW 17.5 H Plt Count Lymph % (Auto) 10.7 L [place] # (Auto) 0.9 H Eos # (Auto) 0.6 H Seg Neutrophils % 80.0 H Lymphocytes % (Manual) Eosinophils % (Manual) Basophils % (Manual) Nucleated RBC % Seg Neutrophils # 13.0 H Seg Neutrophils # Man Lymphocytes # (Manual) Monocytes # (Manual) Eosinophils # (Manual) Basophils # (Manual) Percent Retic PT INR Fibrinogen D-Dimer ABG pH POC ABG pCO2 POC ABG pO2 ABG pO2 ABG HCO3 ABG O2 Saturation ABG Base Excess ABG Hemoglobin ABG Oxyhemoglobin ABG Sodium ABG Potassium ABG Chloride ABG Glucose Oxyhemoglobin Carboxyhemoglobin Sodium Potassium Chloride Carbon Dioxide BUN 61 H Creatinine 7.7 H Glucose 148 H POC Glucose 123 H Hemoglobin A1c Calcium Phosphorus Magnesium AST ALT Alkaline Phosphatase Lactate Dehydrogenase C-Reactive Protein Total Protein Albumin Triglycerides Arterial Blood Glucose Arterial Blood Ionized Calcium Urine WBC (Auto) U Epithel Cells (Auto) Urine Creatinine Random Vancomycin Coronavirus (PCR) Crossmatch 03/28/21 03/28/21 03/28/21 17:33 21:08 23:38 WBC RBC Hgb Hct MCH MCHC RDW Plt Count Lymph % (Auto) [place] # (Auto) Eos # (Auto) Seg Neutrophils % Lymphocytes % (Manual) Eosinophils % (Manual) Basophils % (Manual) Nucleated RBC % Seg Neutrophils # Seg Neutrophils # Man Lymphocytes # (Manual) Monocytes # (Manual) Eosinophils # (Manual) Basophils # (Manual) Percent Retic PT INR Fibrinogen D-Dimer ABG pH POC ABG pCO2 POC ABG pO2 80.5 L ABG pO2 ABG HCO3 ABG O2 Saturation ABG Base Excess ABG Hemoglobin 9.5 L ABG Oxyhemoglobin ABG Sodium 133.3 L ABG Potassium ABG Chloride ABG Glucose 134 H Oxyhemoglobin Carboxyhemoglobin 0.3 L Sodium Potassium Chloride Carbon Dioxide BUN Creatinine Glucose POC Glucose 128 H 112 H Hemoglobin A1c Calcium Phosphorus Magnesium AST ALT Alkaline Phosphatase Lactate Dehydrogenase C-Reactive Protein Total Protein Albumin Triglycerides Arterial Blood Glucose 134 H Arterial Blood Ionized Calcium Urine WBC (Auto) U Epithel Cells (Auto) Urine Creatinine Random Vancomycin Coronavirus (PCR) Crossmatch 03/29/21 03/29/21 03/29/21 04:45 04:45 04:45 WBC 17.5 H RBC 3.15 L Hgb 8.8 L Hct 27.2 L MCH MCHC RDW 17.9 H Plt Count 132 L Lymph % (Auto) [place] # (Auto) Eos # (Auto) Seg Neutrophils % Lymphocytes % (Manual) Eosinophils % (Manual) Basophils % (Manual) Nucleated RBC % Seg Neutrophils # Seg Neutrophils # Man Lymphocytes # (Manual) Monocytes # (Manual) Eosinophils # (Manual) Basophils # (Manual) Percent Retic PT INR Fibrinogen D-Dimer ABG pH POC ABG pCO2 POC ABG pO2 ABG pO2 ABG HCO3 ABG O2 Saturation ABG Base Excess ABG Hemoglobin ABG Oxyhemoglobin ABG Sodium ABG Potassium ABG Chloride ABG Glucose Oxyhemoglobin Carboxyhemoglobin Sodium Potassium Chloride 97.7 L Carbon Dioxide 21 L BUN 78 H Creatinine 9.5 H Glucose 132 H POC Glucose Hemoglobin A1c Calcium Phosphorus Magnesium AST ALT Alkaline Phosphatase Lactate Dehydrogenase C-Reactive Protein Total Protein Albumin 2.2 L Triglycerides 385 H Arterial Blood Glucose Arterial Blood Ionized Calcium Urine WBC (Auto) U Epithel Cells (Auto) Urine Creatinine Random Vancomycin Coronavirus (PCR) Crossmatch 03/29/21 03/29/21 03/29/21 11:35 16:50 21:06 WBC RBC Hgb Hct MCH MCHC RDW Plt Count Lymph % (Auto) [place] # (Auto) Eos # (Auto) Seg Neutrophils % Lymphocytes % (Manual) Eosinophils % (Manual) Basophils % (Manual) Nucleated RBC % Seg Neutrophils # Seg Neutrophils # Man Lymphocytes # (Manual) Monocytes # (Manual) Eosinophils # (Manual) Basophils # (Manual) Percent Retic PT INR Fibrinogen D-Dimer ABG pH POC ABG pCO2 POC ABG pO2 ABG pO2 64.9 L ABG HCO3 ABG O2 Saturation ABG Base Excess -5.2 L ABG Hemoglobin ABG Oxyhemoglobin ABG Sodium ABG Potassium ABG Chloride ABG Glucose Oxyhemoglobin 85.1 L Carboxyhemoglobin Sodium Potassium Chloride Carbon Dioxide BUN Creatinine Glucose POC Glucose 148 H 133 H Hemoglobin A1c Calcium Phosphorus Magnesium AST ALT Alkaline Phosphatase Lactate Dehydrogenase C-Reactive Protein Total Protein Albumin Triglycerides Arterial Blood Glucose Arterial Blood Ionized Calcium Urine WBC (Auto) U Epithel Cells (Auto) Urine Creatinine Random Vancomycin Coronavirus (PCR) Crossmatch 03/29/21 03/30/21 03/30/21 Unknown 00:13 04:00 WBC 15.7 H RBC 3.18 L Hgb 8.6 L Hct 27.3 L MCH 27 L MCHC RDW 18.0 H Plt Count 86 L Lymph % (Auto) [place] # (Auto) Eos # (Auto) Seg Neutrophils % Lymphocytes % (Manual) Eosinophils % (Manual) Basophils % (Manual) Nucleated RBC % Seg Neutrophils # Seg Neutrophils # Man Lymphocytes # (Manual) Monocytes # (Manual) Eosinophils # (Manual) Basophils # (Manual) Percent Retic PT INR Fibrinogen D-Dimer ABG pH 7.258 L POC ABG pCO2 POC ABG pO2 ABG pO2 ABG HCO3 ABG O2 Saturation ABG Base Excess -4.9 L ABG Hemoglobin 8.8 L ABG Oxyhemoglobin ABG Sodium ABG Potassium ABG Chloride ABG Glucose Oxyhemoglobin 93.9 L Carboxyhemoglobin Sodium Potassium Chloride Carbon Dioxide BUN Creatinine Glucose POC Glucose 129 H Hemoglobin A1c Calcium Phosphorus Magnesium AST ALT Alkaline Phosphatase Lactate Dehydrogenase C-Reactive Protein Total Protein Albumin Triglycerides Arterial Blood Glucose Arterial Blood Ionized Calcium Urine WBC (Auto) U Epithel Cells (Auto) Urine Creatinine Random Vancomycin Coronavirus (PCR) Crossmatch 03/30/21 03/30/21 03/30/21 04:00 04:00 06:02 WBC RBC Hgb Hct MCH MCHC RDW Plt Count Lymph % (Auto) [place] # (Auto) Eos # (Auto) Seg Neutrophils % Lymphocytes % (Manual) Eosinophils % (Manual) Basophils % (Manual) Nucleated RBC % Seg Neutrophils # Seg Neutrophils # Man Lymphocytes # (Manual) Monocytes # (Manual) Eosinophils # (Manual) Basophils # (Manual) Percent Retic PT INR Fibrinogen D-Dimer 2607.12 H ABG pH POC ABG pCO2 POC ABG pO2 ABG pO2 ABG HCO3 ABG O2 Saturation ABG Base Excess ABG Hemoglobin ABG Oxyhemoglobin ABG Sodium ABG Potassium ABG Chloride ABG Glucose Oxyhemoglobin Carboxyhemoglobin Sodium 133 L Potassium 5.2 H D Chloride 91.5 L Carbon Dioxide 18 L BUN 101 H Creatinine 10.6 H Glucose 149 H POC Glucose 130 H Hemoglobin A1c Calcium Phosphorus 10.30 H Magnesium AST ALT Alkaline Phosphatase Lactate Dehydrogenase C-Reactive Protein 21.50 H Total Protein Albumin Triglycerides Arterial Blood Glucose Arterial Blood Ionized Calcium Urine WBC (Auto) U Epithel Cells (Auto) Urine Creatinine Random Vancomycin Coronavirus (PCR) Crossmatch 03/30/21 03/30/21 03/30/21 10:36 11:48 17:20 WBC RBC Hgb Hct MCH MCHC RDW Plt Count Lymph % (Auto) [place] # (Auto) Eos # (Auto) Seg Neutrophils % Lymphocytes % (Manual) Eosinophils % (Manual) Basophils % (Manual) Nucleated RBC % Seg Neutrophils # Seg Neutrophils # Man Lymphocytes # (Manual) Monocytes # (Manual) Eosinophils # (Manual) Basophils # (Manual) Percent Retic PT INR Fibrinogen D-Dimer ABG pH 7.224 L POC ABG pCO2 49.1 H POC ABG pO2 61.5 L ABG pO2 ABG HCO3 ABG O2 Saturation ABG Base Excess ABG Hemoglobin 10.2 L ABG Oxyhemoglobin 86.2 L ABG Sodium 129.6 L ABG Potassium 5.4 H ABG Chloride 96.0 L ABG Glucose 161 H Oxyhemoglobin Carboxyhemoglobin Sodium Potassium Chloride Carbon Dioxide BUN Creatinine Glucose POC Glucose 163 H 130 H Hemoglobin A1c Calcium Phosphorus Magnesium AST ALT Alkaline Phosphatase Lactate Dehydrogenase C-Reactive Protein Total Protein Albumin Triglycerides Arterial Blood Glucose 161 H Arterial Blood Ionized Calcium 4.4 L Urine WBC (Auto) U Epithel Cells (Auto) Urine Creatinine Random Vancomycin Coronavirus (PCR) Crossmatch 03/30/21 03/31/21 03/31/21 23:49 00:28 05:20 WBC 17.3 H RBC 2.99 L Hgb 8.2 L Hct 25.3 L MCH 27 L MCHC RDW 18.3 H Plt Count 126 L Lymph % (Auto) [place] # (Auto) Eos # (Auto) Seg Neutrophils % Lymphocytes % (Manual) Eosinophils % (Manual) Basophils % (Manual) Nucleated RBC % Seg Neutrophils # Seg Neutrophils # Man Lymphocytes # (Manual) Monocytes # (Manual) Eosinophils # (Manual) Basophils # (Manual) Percent Retic PT INR Fibrinogen D-Dimer ABG pH 7.249 L POC ABG pCO2 POC ABG pO2 77.7 L ABG pO2 ABG HCO3 ABG O2 Saturation ABG Base Excess ABG Hemoglobin 9.0 L ABG Oxyhemoglobin 92.9 L ABG Sodium 130.4 L ABG Potassium 4.7 H ABG Chloride ABG Glucose 166 H Oxyhemoglobin Carboxyhemoglobin 0.4 L Sodium Potassium Chloride Carbon Dioxide BUN Creatinine Glucose POC Glucose 143 H Hemoglobin A1c Calcium Phosphorus Magnesium AST ALT Alkaline Phosphatase Lactate Dehydrogenase C-Reactive Protein Total Protein Albumin Triglycerides Arterial Blood Glucose 166 H Arterial Blood Ionized Calcium 4.3 L Urine WBC (Auto) U Epithel Cells (Auto) Urine Creatinine Random Vancomycin Coronavirus (PCR) Crossmatch 03/31/21 03/31/21 03/31/21 05:20 06:18 09:44 WBC RBC Hgb Hct MCH MCHC RDW Plt Count Lymph % (Auto) [place] # (Auto) Eos # (Auto) Seg Neutrophils % Lymphocytes % (Manual) Eosinophils % (Manual) Basophils % (Manual) Nucleated RBC % Seg Neutrophils # Seg Neutrophils # Man Lymphocytes # (Manual) Monocytes # (Manual) Eosinophils # (Manual) Basophils # (Manual) Percent Retic PT INR Fibrinogen D-Dimer ABG pH 7.247 L POC ABG pCO2 POC ABG pO2 ABG pO2 ABG HCO3 ABG O2 Saturation 94.4 L ABG Base Excess -5.1 L ABG Hemoglobin 8.2 L ABG Oxyhemoglobin ABG Sodium ABG Potassium ABG Chloride ABG Glucose Oxyhemoglobin 92.4 L Carboxyhemoglobin Sodium Potassium Chloride Carbon Dioxide BUN Creatinine Glucose POC Glucose 155 H Hemoglobin A1c Calcium Phosphorus 8.20 H D Magnesium AST ALT Alkaline Phosphatase Lactate Dehydrogenase C-Reactive Protein Total Protein Albumin Triglycerides Arterial Blood Glucose Arterial Blood Ionized Calcium Urine WBC (Auto) U Epithel Cells (Auto) Urine Creatinine Random Vancomycin Coronavirus (PCR) Crossmatch 03/31/21 03/31/21 03/31/21 09:49 09:55 09:55 WBC RBC Hgb Hct MCH MCHC RDW Plt Count Lymph % (Auto) [place] # (Auto) Eos # (Auto) Seg Neutrophils % Lymphocytes % (Manual) Eosinophils % (Manual) Basophils % (Manual) Nucleated RBC % Seg Neutrophils # Seg Neutrophils # Man Lymphocytes # (Manual) Monocytes # (Manual) Eosinophils # (Manual) Basophils # (Manual) Percent Retic 4.52 H PT 16.5 H INR 1.20 H Fibrinogen D-Dimer ABG pH POC ABG pCO2 POC ABG pO2 ABG pO2 ABG HCO3 ABG O2 Saturation ABG Base Excess ABG Hemoglobin ABG Oxyhemoglobin ABG Sodium ABG Potassium ABG Chloride ABG Glucose Oxyhemoglobin Carboxyhemoglobin Sodium 133 L Potassium Chloride 92.8 L Carbon Dioxide 20 L BUN 87 H Creatinine 8.9 H Glucose 177 H POC Glucose Hemoglobin A1c Calcium 8.2 L Phosphorus Magnesium AST 169 H ALT Alkaline Phosphatase 187 H Lactate Dehydrogenase C-Reactive Protein Total Protein Albumin 2.3 L Triglycerides Arterial Blood Glucose Arterial Blood Ionized Calcium Urine WBC (Auto) U Epithel Cells (Auto) Urine Creatinine Random Vancomycin Coronavirus (PCR) Crossmatch 03/31/21 03/31/21 03/31/21 09:55 09:55 11:25 WBC RBC Hgb Hct MCH MCHC RDW Plt Count Lymph % (Auto) [place] # (Auto) Eos # (Auto) Seg Neutrophils % Lymphocytes % (Manual) Eosinophils % (Manual) Basophils % (Manual) Nucleated RBC % Seg Neutrophils # Seg Neutrophils # Man Lymphocytes # (Manual) Monocytes # (Manual) Eosinophils # (Manual) Basophils # (Manual) Percent Retic PT INR Fibrinogen 491 H D-Dimer ABG pH POC ABG pCO2 POC ABG pO2 ABG pO2 ABG HCO3 ABG O2 Saturation ABG Base Excess ABG Hemoglobin ABG Oxyhemoglobin ABG Sodium ABG Potassium ABG Chloride ABG Glucose Oxyhemoglobin Carboxyhemoglobin Sodium Potassium Chloride Carbon Dioxide BUN Creatinine Glucose POC Glucose 178 H Hemoglobin A1c Calcium Phosphorus Magnesium AST ALT Alkaline Phosphatase Lactate Dehydrogenase 509 H C-Reactive Protein Total Protein Albumin Triglycerides Arterial Blood Glucose Arterial Blood Ionized Calcium Urine WBC (Auto) U Epithel Cells (Auto) Urine Creatinine Random Vancomycin Coronavirus (PCR) Crossmatch 03/31/21 03/31/21 03/31/21 12:30 17:40 21:00 WBC RBC Hgb Hct MCH MCHC RDW Plt Count Lymph % (Auto) [place] # (Auto) Eos # (Auto) Seg Neutrophils % Lymphocytes % (Manual) Eosinophils % (Manual) Basophils % (Manual) Nucleated RBC % Seg Neutrophils # Seg Neutrophils # Man Lymphocytes # (Manual) Monocytes # (Manual) Eosinophils # (Manual) Basophils # (Manual) Percent Retic PT INR Fibrinogen D-Dimer ABG pH 7.235 L 7.216 L POC ABG pCO2 POC ABG pO2 ABG pO2 76.8 L 113.9 H ABG HCO3 ABG O2 Saturation 93.2 L ABG Base Excess -5.3 L -7.3 L ABG Hemoglobin 6.3 L 8.0 L ABG Oxyhemoglobin ABG Sodium ABG Potassium ABG Chloride ABG Glucose Oxyhemoglobin 91.1 L Carboxyhemoglobin Sodium Potassium Chloride Carbon Dioxide BUN Creatinine Glucose POC Glucose 245 H Hemoglobin A1c Calcium Phosphorus Magnesium AST ALT Alkaline Phosphatase Lactate Dehydrogenase C-Reactive Protein Total Protein Albumin Triglycerides Arterial Blood Glucose Arterial Blood Ionized Calcium Urine WBC (Auto) U Epithel Cells (Auto) Urine Creatinine Random Vancomycin Coronavirus (PCR) Crossmatch 04/01/21 04/01/21 04/01/21 00:11 05:09 08:25 WBC RBC Hgb Hct MCH MCHC RDW Plt Count Lymph % (Auto) [place] # (Auto) Eos # (Auto) Seg Neutrophils % Lymphocytes % (Manual) Eosinophils % (Manual) Basophils % (Manual) Nucleated RBC % Seg Neutrophils # Seg Neutrophils # Man Lymphocytes # (Manual) Monocytes # (Manual) Eosinophils # (Manual) Basophils # (Manual) Percent Retic PT INR Fibrinogen D-Dimer ABG pH 7.225 L POC ABG pCO2 POC ABG pO2 ABG pO2 76.4 L ABG HCO3 ABG O2 Saturation 92.2 L ABG Base Excess -7.6 L ABG Hemoglobin 7.3 L ABG Oxyhemoglobin ABG Sodium ABG Potassium ABG Chloride ABG Glucose Oxyhemoglobin 90.2 L Carboxyhemoglobin Sodium Potassium Chloride Carbon Dioxide BUN Creatinine Glucose POC Glucose 209 H 173 H Hemoglobin A1c Calcium Phosphorus Magnesium AST ALT Alkaline Phosphatase Lactate Dehydrogenase C-Reactive Protein Total Protein Albumin Triglycerides Arterial Blood Glucose Arterial Blood Ionized Calcium Urine WBC (Auto) U Epithel Cells (Auto) Urine Creatinine Random Vancomycin Coronavirus (PCR) Crossmatch 04/01/21 04/01/21 04/01/21 12:01 12:05 17:55 WBC RBC Hgb Hct MCH MCHC RDW Plt Count Lymph % (Auto) [place] # (Auto) Eos # (Auto) Seg Neutrophils % Lymphocytes % (Manual) Eosinophils % (Manual) Basophils % (Manual) Nucleated RBC % Seg Neutrophils # Seg Neutrophils # Man Lymphocytes # (Manual) Monocytes # (Manual) Eosinophils # (Manual) Basophils # (Manual) Percent Retic PT INR Fibrinogen D-Dimer ABG pH POC ABG pCO2 POC ABG pO2 ABG pO2 ABG HCO3 ABG O2 Saturation ABG Base Excess ABG Hemoglobin ABG Oxyhemoglobin ABG Sodium ABG Potassium ABG Chloride ABG Glucose Oxyhemoglobin Carboxyhemoglobin Sodium Potassium 5.9 H Chloride Carbon Dioxide BUN Creatinine Glucose POC Glucose 202 H 217 H Hemoglobin A1c Calcium Phosphorus Magnesium AST ALT Alkaline Phosphatase Lactate Dehydrogenase C-Reactive Protein Total Protein Albumin Triglycerides Arterial Blood Glucose Arterial Blood Ionized Calcium Urine WBC (Auto) U Epithel Cells (Auto) Urine Creatinine Random Vancomycin Coronavirus (PCR) Crossmatch 04/01/21 04/01/21 04/01/21 Unknown Unknown 23:59 WBC 27.2 H RBC 3.08 L Hgb 8.4 L Hct 26.0 L MCH 27 L MCHC RDW 18.5 H Plt Count Lymph % (Auto) [place] # (Auto) Eos # (Auto) Seg Neutrophils % Lymphocytes % (Manual) Eosinophils % (Manual) Basophils % (Manual) Nucleated RBC % Seg Neutrophils # Seg Neutrophils # Man Lymphocytes # (Manual) Monocytes # (Manual) Eosinophils # (Manual) Basophils # (Manual) Percent Retic PT INR Fibrinogen D-Dimer ABG pH POC ABG pCO2 POC ABG pO2 ABG pO2 ABG HCO3 ABG O2 Saturation ABG Base Excess ABG Hemoglobin ABG Oxyhemoglobin ABG Sodium ABG Potassium ABG Chloride ABG Glucose Oxyhemoglobin Carboxyhemoglobin Sodium 132 L Potassium 6.6 H* D Chloride 91.3 L Carbon Dioxide 17 L BUN 104 H Creatinine 9.3 H Glucose 199 H POC Glucose 172 H Hemoglobin A1c Calcium 8.3 L Phosphorus Magnesium AST 236 H ALT 93 H Alkaline Phosphatase 191 H Lactate Dehydrogenase C-Reactive Protein Total Protein Albumin 2.4 L Triglycerides Arterial Blood Glucose Arterial Blood Ionized Calcium Urine WBC (Auto) U Epithel Cells (Auto) Urine Creatinine Random Vancomycin Coronavirus (PCR) Crossmatch 04/02/21 04/02/21 04/02/21 04:00 04:00 05:00 WBC 31.0 H RBC 2.93 L Hgb 8.0 L Hct 24.7 L MCH 27 L MCHC RDW 19.2 H Plt Count 131 L Lymph % (Auto) [place] # (Auto) Eos # (Auto) Seg Neutrophils % Lymphocytes % (Manual) Eosinophils % (Manual) Basophils % (Manual) Nucleated RBC % Seg Neutrophils # Seg Neutrophils # Man Lymphocytes # (Manual) Monocytes # (Manual) Eosinophils # (Manual) Basophils # (Manual) Percent Retic PT 16.0 H INR 1.16 H Fibrinogen D-Dimer ABG pH POC ABG pCO2 POC ABG pO2 ABG pO2 ABG HCO3 ABG O2 Saturation ABG Base Excess ABG Hemoglobin ABG Oxyhemoglobin ABG Sodium ABG Potassium ABG Chloride ABG Glucose Oxyhemoglobin Carboxyhemoglobin Sodium 135 L Potassium 5.3 H Chloride 96.1 L Carbon Dioxide 18 L BUN 80 H Creatinine 6.8 H Glucose 174 H POC Glucose Hemoglobin A1c Calcium 7.7 L Phosphorus Magnesium AST 106 H ALT 60 H Alkaline Phosphatase Lactate Dehydrogenase C-Reactive Protein Total Protein 5.9 L Albumin 3.5 L Triglycerides 579 H Arterial Blood Glucose Arterial Blood Ionized Calcium Urine WBC (Auto) U Epithel Cells (Auto) Urine Creatinine Random Vancomycin Coronavirus (PCR) Crossmatch 04/02/21 04/02/21 04/02/21 05:09 08:55 11:06 WBC RBC Hgb Hct MCH MCHC RDW Plt Count Lymph % (Auto) [place] # (Auto) Eos # (Auto) Seg Neutrophils % Lymphocytes % (Manual) Eosinophils % (Manual) Basophils % (Manual) Nucleated RBC % Seg Neutrophils # Seg Neutrophils # Man Lymphocytes # (Manual) Monocytes # (Manual) Eosinophils # (Manual) Basophils # (Manual) Percent Retic PT INR Fibrinogen D-Dimer ABG pH 7.188 L POC ABG pCO2 58.3 H POC ABG pO2 132.8 H ABG pO2 ABG HCO3 ABG O2 Saturation ABG Base Excess ABG Hemoglobin 8.4 L ABG Oxyhemoglobin ABG Sodium ABG Potassium 5.0 H ABG Chloride 97.0 L ABG Glucose 156 H Oxyhemoglobin Carboxyhemoglobin 0.4 L Sodium Potassium Chloride Carbon Dioxide BUN Creatinine Glucose POC Glucose 148 H 167 H Hemoglobin A1c Calcium Phosphorus Magnesium AST ALT Alkaline Phosphatase Lactate Dehydrogenase C-Reactive Protein Total Protein Albumin Triglycerides Arterial Blood Glucose 156 H Arterial Blood Ionized Calcium 4.2 L Urine WBC (Auto) U Epithel Cells (Auto) Urine Creatinine Random Vancomycin Coronavirus (PCR) Crossmatch 04/02/21 04/02/21 04/03/21 17:57 20:40 00:28 WBC RBC Hgb Hct MCH MCHC RDW Plt Count Lymph % (Auto) [place] # (Auto) Eos # (Auto) Seg Neutrophils % Lymphocytes % (Manual) Eosinophils % (Manual) Basophils % (Manual) Nucleated RBC % Seg Neutrophils # Seg Neutrophils # Man Lymphocytes # (Manual) Monocytes # (Manual) Eosinophils # (Manual) Basophils # (Manual) Percent Retic PT INR Fibrinogen D-Dimer ABG pH POC ABG pCO2 POC ABG pO2 ABG pO2 111.9 H ABG HCO3 18.9 L ABG O2 Saturation ABG Base Excess -9.9 L ABG Hemoglobin ABG Oxyhemoglobin ABG Sodium ABG Potassium ABG Chloride ABG Glucose Oxyhemoglobin Carboxyhemoglobin Sodium Potassium Chloride Carbon Dioxide BUN Creatinine Glucose POC Glucose 205 H 217 H Hemoglobin A1c Calcium Phosphorus Magnesium AST ALT Alkaline Phosphatase Lactate Dehydrogenase C-Reactive Protein Total Protein Albumin Triglycerides Arterial Blood Glucose Arterial Blood Ionized Calcium Urine WBC (Auto) U Epithel Cells (Auto) Urine Creatinine Random Vancomycin Coronavirus (PCR) Crossmatch 04/03/21 04/03/21 04/03/21 03:39 04:30 04:30 WBC 31.1 H RBC 2.78 L Hgb 8.0 L Hct 24.0 L MCH MCHC RDW 19.0 H Plt Count Lymph % (Auto) [place] # (Auto) Eos # (Auto) Seg Neutrophils % Lymphocytes % (Manual) Eosinophils % (Manual) 27.0 H Basophils % (Manual) 2.0 H Nucleated RBC % Seg Neutrophils # Seg Neutrophils # Man 13.7 H Lymphocytes # (Manual) 8.4 H Monocytes # (Manual) Eosinophils # (Manual) 8.4 H Basophils # (Manual) 0.6 H Percent Retic PT INR Fibrinogen D-Dimer ABG pH POC ABG pCO2 POC ABG pO2 ABG pO2 ABG HCO3 ABG O2 Saturation ABG Base Excess ABG Hemoglobin ABG Oxyhemoglobin ABG Sodium ABG Potassium ABG Chloride ABG Glucose Oxyhemoglobin Carboxyhemoglobin Sodium 132 L Potassium 5.8 H Chloride 94.5 L Carbon Dioxide 16 L BUN 97 H Creatinine 7.7 H Glucose 230 H POC Glucose 201 H Hemoglobin A1c Calcium 7.6 L Phosphorus Magnesium AST 47 H ALT Alkaline Phosphatase 146 H Lactate Dehydrogenase C-Reactive Protein Total Protein 5.2 L Albumin 3.4 L Triglycerides Arterial Blood Glucose Arterial Blood Ionized Calcium Urine WBC (Auto) U Epithel Cells (Auto) Urine Creatinine Random Vancomycin Coronavirus (PCR) Crossmatch 04/03/21 04/03/21 04/03/21 04:30 08:31 11:29 WBC RBC Hgb Hct MCH MCHC RDW Plt Count Lymph % (Auto) [place] # (Auto) Eos # (Auto) Seg Neutrophils % Lymphocytes % (Manual) Eosinophils % (Manual) Basophils % (Manual) Nucleated RBC % Seg Neutrophils # Seg Neutrophils # Man Lymphocytes # (Manual) Monocytes # (Manual) Eosinophils # (Manual) Basophils # (Manual) Percent Retic PT INR Fibrinogen D-Dimer ABG pH 7.195 L* POC ABG pCO2 POC ABG pO2 ABG pO2 102.6 H ABG HCO3 ABG O2 Saturation ABG Base Excess -7.2 L ABG Hemoglobin 8.0 L ABG Oxyhemoglobin ABG Sodium ABG Potassium ABG Chloride ABG Glucose Oxyhemoglobin 94.7 L Carboxyhemoglobin Sodium Potassium Chloride Carbon Dioxide BUN Creatinine Glucose POC Glucose 230 H Hemoglobin A1c Calcium Phosphorus 10.30 H Magnesium AST ALT Alkaline Phosphatase Lactate Dehydrogenase C-Reactive Protein Total Protein Albumin Triglycerides Arterial Blood Glucose Arterial Blood Ionized Calcium Urine WBC (Auto) U Epithel Cells (Auto) Urine Creatinine Random Vancomycin Coronavirus (PCR) Crossmatch 04/03/21 04/03/21 04/04/21 16:53 20:45 05:00 WBC 28.8 H RBC 2.64 L Hgb 8.7 L Hct 22.2 L MCH 33 H MCHC 39 H* RDW 18.6 H Plt Count Lymph % (Auto) [place] # (Auto) Eos # (Auto) Seg Neutrophils % Lymphocytes % (Manual) Eosinophils % (Manual) Basophils % (Manual) Nucleated RBC % Seg Neutrophils # Seg Neutrophils # Man Lymphocytes # (Manual) Monocytes # (Manual) Eosinophils # (Manual) Basophils # (Manual) Percent Retic PT INR Fibrinogen D-Dimer ABG pH POC ABG pCO2 POC ABG pO2 ABG pO2 ABG HCO3 ABG O2 Saturation ABG Base Excess ABG Hemoglobin ABG Oxyhemoglobin ABG Sodium ABG Potassium ABG Chloride ABG Glucose Oxyhemoglobin 94.8 L Carboxyhemoglobin Sodium Potassium Chloride Carbon Dioxide BUN Creatinine Glucose POC Glucose 227 H Hemoglobin A1c Calcium Phosphorus Magnesium AST ALT Alkaline Phosphatase Lactate Dehydrogenase C-Reactive Protein Total Protein Albumin Triglycerides Arterial Blood Glucose Arterial Blood Ionized Calcium Urine WBC (Auto) U Epithel Cells (Auto) Urine Creatinine Random Vancomycin Coronavirus (PCR) Crossmatch 04/04/21 04/04/21 04/04/21 05:29 07:55 09:20 WBC RBC Hgb Hct MCH MCHC RDW Plt Count Lymph % (Auto) [place] # (Auto) Eos # (Auto) Seg Neutrophils % Lymphocytes % (Manual) Eosinophils % (Manual) Basophils % (Manual) Nucleated RBC % Seg Neutrophils # Seg Neutrophils # Man Lymphocytes # (Manual) Monocytes # (Manual) Eosinophils # (Manual) Basophils # (Manual) Percent Retic PT INR Fibrinogen D-Dimer ABG pH POC ABG pCO2 POC ABG pO2 ABG pO2 ABG HCO3 ABG O2 Saturation ABG Base Excess ABG Hemoglobin ABG Oxyhemoglobin ABG Sodium ABG Potassium ABG Chloride ABG Glucose Oxyhemoglobin Carboxyhemoglobin Sodium 133 L Potassium Chloride 91.0 L Carbon Dioxide 20 L BUN 75 H Creatinine 4.7 H Glucose 184 H POC Glucose 133 H Hemoglobin A1c Calcium 7.3 L Phosphorus Magnesium AST < 5 L ALT < 5 L Alkaline Phosphatase 200 H Lactate Dehydrogenase C-Reactive Protein Total Protein 5.6 L Albumin 2.9 L Triglycerides Arterial Blood Glucose Arterial Blood Ionized Calcium Urine WBC (Auto) U Epithel Cells (Auto) Urine Creatinine Random Vancomycin Coronavirus (PCR) Crossmatch See Detail 04/04/21 04/04/21 04/04/21 12:01 14:06 17:05 WBC RBC Hgb Hct MCH MCHC RDW Plt Count Lymph % (Auto) [place] # (Auto) Eos # (Auto) Seg Neutrophils % Lymphocytes % (Manual) Eosinophils % (Manual) Basophils % (Manual) Nucleated RBC % Seg Neutrophils # Seg Neutrophils # Man Lymphocytes # (Manual) Monocytes # (Manual) Eosinophils # (Manual) Basophils # (Manual) Percent Retic PT INR Fibrinogen D-Dimer ABG pH 7.162 L* POC ABG pCO2 POC ABG pO2 ABG pO2 91.3 H ABG HCO3 ABG O2 Saturation 94.8 L ABG Base Excess -4.0 L ABG Hemoglobin 7.6 L ABG Oxyhemoglobin ABG Sodium ABG Potassium ABG Chloride ABG Glucose Oxyhemoglobin 92.4 L Carboxyhemoglobin Sodium Potassium Chloride Carbon Dioxide BUN Creatinine Glucose POC Glucose 199 H 166 H Hemoglobin A1c Calcium Phosphorus Magnesium AST ALT Alkaline Phosphatase Lactate Dehydrogenase C-Reactive Protein Total Protein Albumin Triglycerides Arterial Blood Glucose Arterial Blood Ionized Calcium Urine WBC (Auto) U Epithel Cells (Auto) Urine Creatinine Random Vancomycin Coronavirus (PCR) Crossmatch 04/04/21 04/04/21 04/05/21 21:14 23:30 05:20 WBC RBC Hgb Hct MCH MCHC RDW Plt Count Lymph % (Auto) [place] # (Auto) Eos # (Auto) Seg Neutrophils % Lymphocytes % (Manual) Eosinophils % (Manual) Basophils % (Manual) Nucleated RBC % Seg Neutrophils # Seg Neutrophils # Man Lymphocytes # (Manual) Monocytes # (Manual) Eosinophils # (Manual) Basophils # (Manual) Percent Retic PT INR Fibrinogen D-Dimer ABG pH 7.257 L POC ABG pCO2 POC ABG pO2 ABG pO2 73.8 L ABG HCO3 ABG O2 Saturation 91.6 L ABG Base Excess -2.7 L ABG Hemoglobin 8.6 L ABG Oxyhemoglobin ABG Sodium ABG Potassium ABG Chloride ABG Glucose Oxyhemoglobin 89.1 L Carboxyhemoglobin Sodium 131 L Potassium Chloride 91.2 L Carbon Dioxide 17 L BUN 85 H Creatinine 5.1 H Glucose 183 H POC Glucose 158 H Hemoglobin A1c Calcium 7.4 L Phosphorus Magnesium AST ALT Alkaline Phosphatase 190 H Lactate Dehydrogenase 394 H C-Reactive Protein Total Protein 5.8 L Albumin 2.7 L Triglycerides Arterial Blood Glucose Arterial Blood Ionized Calcium Urine WBC (Auto) U Epithel Cells (Auto) Urine Creatinine Random Vancomycin Coronavirus (PCR) Crossmatch 04/05/21 04/05/21 04/05/21 05:20 05:20 05:24 WBC 30.8 H RBC 2.83 L Hgb 8.4 L Hct 24.4 L MCH MCHC 35 H RDW 18.9 H Plt Count Lymph % (Auto) [place] # (Auto) Eos # (Auto) Seg Neutrophils % Lymphocytes % (Manual) Eosinophils % (Manual) Basophils % (Manual) Nucleated RBC % Seg Neutrophils # Seg Neutrophils # Man Lymphocytes # (Manual) Monocytes # (Manual) Eosinophils # (Manual) Basophils # (Manual) Percent Retic PT INR Fibrinogen D-Dimer ABG pH POC ABG pCO2 POC ABG pO2 ABG pO2 ABG HCO3 ABG O2 Saturation ABG Base Excess ABG Hemoglobin ABG Oxyhemoglobin ABG Sodium ABG Potassium ABG Chloride ABG Glucose Oxyhemoglobin Carboxyhemoglobin Sodium Potassium Chloride Carbon Dioxide BUN Creatinine Glucose POC Glucose 162 H Hemoglobin A1c Calcium Phosphorus 9.40 H Magnesium AST ALT Alkaline Phosphatase Lactate Dehydrogenase C-Reactive Protein Total Protein Albumin Triglycerides Arterial Blood Glucose Arterial Blood Ionized Calcium Urine WBC (Auto) U Epithel Cells (Auto) Urine Creatinine Random Vancomycin Coronavirus (PCR) Crossmatch 04/05/21 04/05/21 04/05/21 11:31 12:23 21:40 WBC RBC Hgb Hct MCH MCHC RDW Plt Count Lymph % (Auto) [place] # (Auto) Eos # (Auto) Seg Neutrophils % Lymphocytes % (Manual) Eosinophils % (Manual) Basophils % (Manual) Nucleated RBC % Seg Neutrophils # Seg Neutrophils # Man Lymphocytes # (Manual) Monocytes # (Manual) Eosinophils # (Manual) Basophils # (Manual) Percent Retic PT INR Fibrinogen D-Dimer ABG pH 7.325 L POC ABG pCO2 POC ABG pO2 ABG pO2 65.6 L ABG HCO3 ABG O2 Saturation 91.2 L ABG Base Excess ABG Hemoglobin 6.7 L ABG Oxyhemoglobin ABG Sodium ABG Potassium ABG Chloride ABG Glucose Oxyhemoglobin 89.0 L Carboxyhemoglobin Sodium Potassium Chloride Carbon Dioxide BUN Creatinine Glucose POC Glucose 196 H 190 H Hemoglobin A1c Calcium Phosphorus Magnesium AST ALT Alkaline Phosphatase Lactate Dehydrogenase C-Reactive Protein Total Protein Albumin Triglycerides Arterial Blood Glucose Arterial Blood Ionized Calcium Urine WBC (Auto) U Epithel Cells (Auto) Urine Creatinine Random Vancomycin Coronavirus (PCR) Crossmatch 04/05/21 04/06/21 04/06/21 23:53 05:35 06:00 WBC RBC Hgb Hct MCH MCHC RDW Plt Count Lymph % (Auto) [place] # (Auto) Eos # (Auto) Seg Neutrophils % Lymphocytes % (Manual) Eosinophils % (Manual) Basophils % (Manual) Nucleated RBC % Seg Neutrophils # Seg Neutrophils # Man Lymphocytes # (Manual) Monocytes # (Manual) Eosinophils # (Manual) Basophils # (Manual) Percent Retic PT INR Fibrinogen D-Dimer ABG pH POC ABG pCO2 POC ABG pO2 ABG pO2 ABG HCO3 ABG O2 Saturation ABG Base Excess ABG Hemoglobin ABG Oxyhemoglobin ABG Sodium ABG Potassium ABG Chloride ABG Glucose Oxyhemoglobin Carboxyhemoglobin Sodium 132 L Potassium Chloride 90.7 L Carbon Dioxide 21 L BUN 74 H Creatinine 4.3 H Glucose 156 H POC Glucose 192 H 139 H Hemoglobin A1c Calcium 7.9 L Phosphorus 6.90 H D Magnesium AST < 5 L ALT < 5 L Alkaline Phosphatase 185 H Lactate Dehydrogenase C-Reactive Protein Total Protein 5.7 L Albumin 2.5 L Triglycerides Arterial Blood Glucose Arterial Blood Ionized Calcium Urine WBC (Auto) U Epithel Cells (Auto) Urine Creatinine Random Vancomycin Coronavirus (PCR) Crossmatch 04/06/21 04/06/21 04/06/21 06:00 11:27 18:01 WBC 26.7 H RBC 2.39 L Hgb 6.9 L Hct 20.1 L MCH MCHC RDW 18.7 H Plt Count Lymph % (Auto) [place] # (Auto) Eos # (Auto) Seg Neutrophils % Lymphocytes % (Manual) Eosinophils % (Manual) Basophils % (Manual) Nucleated RBC % Seg Neutrophils # Seg Neutrophils # Man Lymphocytes # (Manual) Monocytes # (Manual) Eosinophils # (Manual) Basophils # (Manual) Percent Retic PT INR Fibrinogen D-Dimer ABG pH POC ABG pCO2 POC ABG pO2 ABG pO2 ABG HCO3 ABG O2 Saturation ABG Base Excess ABG Hemoglobin ABG Oxyhemoglobin ABG Sodium ABG Potassium ABG Chloride ABG Glucose Oxyhemoglobin Carboxyhemoglobin Sodium Potassium Chloride Carbon Dioxide BUN Creatinine Glucose POC Glucose 166 H 159 H Hemoglobin A1c Calcium Phosphorus Magnesium AST ALT Alkaline Phosphatase Lactate Dehydrogenase C-Reactive Protein Total Protein Albumin Triglycerides Arterial Blood Glucose Arterial Blood Ionized Calcium Urine WBC (Auto) U Epithel Cells (Auto) Urine Creatinine Random Vancomycin Coronavirus (PCR) Crossmatch 04/06/21 04/06/21 04/06/21 20:50 23:43 Unknown WBC RBC Hgb Hct MCH MCHC RDW Plt Count Lymph % (Auto) [place] # (Auto) Eos # (Auto) Seg Neutrophils % Lymphocytes % (Manual) Eosinophils % (Manual) Basophils % (Manual) Nucleated RBC % Seg Neutrophils # Seg Neutrophils # Man Lymphocytes # (Manual) Monocytes # (Manual) Eosinophils # (Manual) Basophils # (Manual) Percent Retic PT INR Fibrinogen D-Dimer ABG pH 7.303 L POC ABG pCO2 POC ABG pO2 67.9 L ABG pO2 ABG HCO3 ABG O2 Saturation ABG Base Excess ABG Hemoglobin 7.6 L ABG Oxyhemoglobin 90.2 L ABG Sodium 128.6 L ABG Potassium ABG Chloride 97.0 L ABG Glucose 154 H Oxyhemoglobin Carboxyhemoglobin Sodium Potassium Chloride Carbon Dioxide BUN Creatinine Glucose POC Glucose 137 H Hemoglobin A1c Calcium Phosphorus Magnesium AST ALT Alkaline Phosphatase Lactate Dehydrogenase C-Reactive Protein Total Protein Albumin Triglycerides Arterial Blood Glucose 154 H Arterial Blood Ionized Calcium Urine WBC (Auto) 148.0 H U Epithel Cells (Auto) 102.0 H Urine Creatinine Random Vancomycin Coronavirus (PCR) Crossmatch 04/07/21 04/07/21 04/07/21 03:50 03:50 03:50 WBC 26.7 H RBC 2.66 L Hgb 7.6 L Hct 23.2 L MCH MCHC RDW 18.5 H Plt Count Lymph % (Auto) [place] # (Auto) Eos # (Auto) Seg Neutrophils % Lymphocytes % (Manual) 10.0 L Eosinophils % (Manual) 19.0 H Basophils % (Manual) Nucleated RBC % 2.0 H Seg Neutrophils # Seg Neutrophils # Man 17.9 H Lymphocytes # (Manual) Monocytes # (Manual) 1.1 H Eosinophils # (Manual) 5.1 H Basophils # (Manual) Percent Retic PT INR Fibrinogen D-Dimer 2178 H ABG pH POC ABG pCO2 POC ABG pO2 ABG pO2 ABG HCO3 ABG O2 Saturation ABG Base Excess ABG Hemoglobin ABG Oxyhemoglobin ABG Sodium ABG Potassium ABG Chloride ABG Glucose Oxyhemoglobin Carboxyhemoglobin Sodium 130 L Potassium Chloride 91.1 L Carbon Dioxide 19 L BUN 92 H Creatinine 4.2 H Glucose 213 H POC Glucose Hemoglobin A1c Calcium 7.8 L Phosphorus Magnesium AST ALT Alkaline Phosphatase Lactate Dehydrogenase C-Reactive Protein Total Protein Albumin Triglycerides Arterial Blood Glucose Arterial Blood Ionized Calcium Urine WBC (Auto) U Epithel Cells (Auto) Urine Creatinine Random Vancomycin Coronavirus (PCR) Crossmatch 04/07/21 04/07/21 04/07/21 04:00 05:42 11:10 WBC RBC Hgb Hct MCH MCHC RDW Plt Count Lymph % (Auto) [place] # (Auto) Eos # (Auto) Seg Neutrophils % Lymphocytes % (Manual) Eosinophils % (Manual) Basophils % (Manual) Nucleated RBC % Seg Neutrophils # Seg Neutrophils # Man Lymphocytes # (Manual) Monocytes # (Manual) Eosinophils # (Manual) Basophils # (Manual) Percent Retic PT INR Fibrinogen D-Dimer ABG pH POC ABG pCO2 POC ABG pO2 ABG pO2 ABG HCO3 ABG O2 Saturation ABG Base Excess ABG Hemoglobin ABG Oxyhemoglobin ABG Sodium ABG Potassium ABG Chloride ABG Glucose Oxyhemoglobin Carboxyhemoglobin Sodium 129 L Potassium 5.1 H Chloride 89.6 L Carbon Dioxide 18 L BUN 94 H Creatinine 4.2 H Glucose 213 H POC Glucose 177 H 136 H Hemoglobin A1c Calcium 7.9 L Phosphorus Magnesium AST ALT Alkaline Phosphatase 167 H Lactate Dehydrogenase C-Reactive Protein Total Protein Albumin 2.8 L Triglycerides Arterial Blood Glucose Arterial Blood Ionized Calcium Urine WBC (Auto) U Epithel Cells (Auto) Urine Creatinine Random Vancomycin Coronavirus (PCR) Crossmatch 04/07/21 04/07/21 04/08/21 16:19 21:30 02:32 WBC RBC Hgb Hct MCH MCHC RDW Plt Count Lymph % (Auto) [place] # (Auto) Eos # (Auto) Seg Neutrophils % Lymphocytes % (Manual) Eosinophils % (Manual) Basophils % (Manual) Nucleated RBC % Seg Neutrophils # Seg Neutrophils # Man Lymphocytes # (Manual) Monocytes # (Manual) Eosinophils # (Manual) Basophils # (Manual) Percent Retic PT INR Fibrinogen D-Dimer ABG pH 7.209 L POC ABG pCO2 64.8 H POC ABG pO2 ABG pO2 ABG HCO3 ABG O2 Saturation ABG Base Excess ABG Hemoglobin 7.9 L ABG Oxyhemoglobin 93.8 L ABG Sodium 128.8 L ABG Potassium 4.6 H ABG Chloride 97.0 L ABG Glucose 170 H Oxyhemoglobin Carboxyhemoglobin 1.6 H Sodium Potassium Chloride Carbon Dioxide BUN Creatinine Glucose POC Glucose 155 H 141 H Hemoglobin A1c Calcium Phosphorus Magnesium AST ALT Alkaline Phosphatase Lactate Dehydrogenase C-Reactive Protein Total Protein Albumin Triglycerides Arterial Blood Glucose 170 H Arterial Blood Ionized Calcium 4.2 L Urine WBC (Auto) U Epithel Cells (Auto) Urine Creatinine Random Vancomycin Coronavirus (PCR) Crossmatch 04/08/21 04/08/21 04/08/21 04:00 04:40 04:40 WBC 23.7 H RBC 2.51 L Hgb 6.9 L Hct 22.1 L MCH 27 L MCHC RDW 18.4 H Plt Count Lymph % (Auto) [place] # (Auto) Eos # (Auto) Seg Neutrophils % Lymphocytes % (Manual) Eosinophils % (Manual) Basophils % (Manual) Nucleated RBC % Seg Neutrophils # Seg Neutrophils # Man Lymphocytes # (Manual) Monocytes # (Manual) Eosinophils # (Manual) Basophils # (Manual) Percent Retic PT INR Fibrinogen D-Dimer 2696.79 H ABG pH POC ABG pCO2 POC ABG pO2 ABG pO2 ABG HCO3 ABG O2 Saturation ABG Base Excess ABG Hemoglobin ABG Oxyhemoglobin ABG Sodium ABG Potassium ABG Chloride ABG Glucose Oxyhemoglobin Carboxyhemoglobin Sodium 133 L Potassium 5.5 H Chloride 93.5 L Carbon Dioxide BUN 78 H Creatinine 3.5 H Glucose 171 H POC Glucose Hemoglobin A1c Calcium 8.1 L Phosphorus 9.30 H Magnesium AST ALT Alkaline Phosphatase Lactate Dehydrogenase C-Reactive Protein 26.10 H Total Protein Albumin Triglycerides 487 H Arterial Blood Glucose Arterial Blood Ionized Calcium Urine WBC (Auto) U Epithel Cells (Auto) Urine Creatinine Random Vancomycin Coronavirus (PCR) Crossmatch 04/08/21 04/08/21 04/08/21 09:55 11:37 13:55 WBC RBC Hgb Hct MCH MCHC RDW Plt Count Lymph % (Auto) [place] # (Auto) Eos # (Auto) Seg Neutrophils % Lymphocytes % (Manual) Eosinophils % (Manual) Basophils % (Manual) Nucleated RBC % Seg Neutrophils # Seg Neutrophils # Man Lymphocytes # (Manual) Monocytes # (Manual) Eosinophils # (Manual) Basophils # (Manual) Percent Retic PT INR Fibrinogen D-Dimer ABG pH 7.114 L* POC ABG pCO2 POC ABG pO2 ABG pO2 75.9 L ABG HCO3 26.2 H ABG O2 Saturation 90.6 L ABG Base Excess -3.6 L ABG Hemoglobin 8.2 L ABG Oxyhemoglobin ABG Sodium ABG Potassium ABG Chloride ABG Glucose Oxyhemoglobin 88.0 L Carboxyhemoglobin Sodium Potassium Chloride Carbon Dioxide BUN Creatinine Glucose POC Glucose 156 H Hemoglobin A1c Calcium Phosphorus Magnesium AST ALT Alkaline Phosphatase Lactate Dehydrogenase C-Reactive Protein Total Protein Albumin Triglycerides Arterial Blood Glucose Arterial Blood Ionized Calcium Urine WBC (Auto) U Epithel Cells (Auto) Urine Creatinine Random Vancomycin Coronavirus (PCR) Crossmatch See Detail 04/08/21 04/08/21 04/08/21 17:04 20:53 23:56 WBC RBC Hgb Hct MCH MCHC RDW Plt Count Lymph % (Auto) [place] # (Auto) Eos # (Auto) Seg Neutrophils % Lymphocytes % (Manual) Eosinophils % (Manual) Basophils % (Manual) Nucleated RBC % Seg Neutrophils # Seg Neutrophils # Man Lymphocytes # (Manual) Monocytes # (Manual) Eosinophils # (Manual) Basophils # (Manual) Percent Retic PT INR Fibrinogen D-Dimer ABG pH 7.207 L POC ABG pCO2 49.8 H POC ABG pO2 ABG pO2 ABG HCO3 ABG O2 Saturation ABG Base Excess ABG Hemoglobin 7.6 L ABG Oxyhemoglobin ABG Sodium 127.3 L ABG Potassium 5.7 H ABG Chloride 96.0 L ABG Glucose 185 H Oxyhemoglobin Carboxyhemoglobin Sodium Potassium Chloride Carbon Dioxide BUN Creatinine Glucose POC Glucose 178 H 189 H Hemoglobin A1c Calcium Phosphorus Magnesium AST ALT Alkaline Phosphatase Lactate Dehydrogenase C-Reactive Protein Total Protein Albumin Triglycerides Arterial Blood Glucose 185 H Arterial Blood Ionized Calcium 4.3 L Urine WBC (Auto) U Epithel Cells (Auto) Urine Creatinine Random Vancomycin Coronavirus (PCR) Crossmatch 04/09/21 04/09/21 04/09/21 04:00 04:00 05:24 WBC 21.9 H RBC 2.70 L Hgb 7.8 L Hct 24.1 L MCH MCHC RDW 18.3 H Plt Count Lymph % (Auto) [place] # (Auto) Eos # (Auto) Seg Neutrophils % Lymphocytes % (Manual) Eosinophils % (Manual) Basophils % (Manual) Nucleated RBC % Seg Neutrophils # Seg Neutrophils # Man Lymphocytes # (Manual) Monocytes # (Manual) Eosinophils # (Manual) Basophils # (Manual) Percent Retic PT INR Fibrinogen D-Dimer ABG pH POC ABG pCO2 POC ABG pO2 ABG pO2 ABG HCO3 ABG O2 Saturation ABG Base Excess ABG Hemoglobin ABG Oxyhemoglobin ABG Sodium ABG Potassium ABG Chloride ABG Glucose Oxyhemoglobin Carboxyhemoglobin Sodium 131 L Potassium 6.3 H* Chloride 93.0 L Carbon Dioxide 19 L BUN 98 H Creatinine 4.6 H Glucose 208 H POC Glucose 191 H Hemoglobin A1c Calcium 8.1 L Phosphorus Magnesium AST ALT Alkaline Phosphatase Lactate Dehydrogenase C-Reactive Protein Total Protein Albumin Triglycerides Arterial Blood Glucose Arterial Blood Ionized Calcium Urine WBC (Auto) U Epithel Cells (Auto) Urine Creatinine Random Vancomycin Coronavirus (PCR) Crossmatch 04/09/21 04/09/21 04/09/21 12:42 16:59 21:00 WBC RBC Hgb Hct MCH MCHC RDW Plt Count Lymph % (Auto) [place] # (Auto) Eos # (Auto) Seg Neutrophils % Lymphocytes % (Manual) Eosinophils % (Manual) Basophils % (Manual) Nucleated RBC % Seg Neutrophils # Seg Neutrophils # Man Lymphocytes # (Manual) Monocytes # (Manual) Eosinophils # (Manual) Basophils # (Manual) Percent Retic PT INR Fibrinogen D-Dimer ABG pH 7.192 L POC ABG pCO2 63.4 H POC ABG pO2 ABG pO2 ABG HCO3 ABG O2 Saturation ABG Base Excess ABG Hemoglobin 8.7 L ABG Oxyhemoglobin 92.9 L ABG Sodium 135.1 L ABG Potassium ABG Chloride ABG Glucose 208 H Oxyhemoglobin Carboxyhemoglobin Sodium Potassium Chloride Carbon Dioxide BUN Creatinine Glucose POC Glucose 198 H 218 H Hemoglobin A1c Calcium Phosphorus Magnesium AST ALT Alkaline Phosphatase Lactate Dehydrogenase C-Reactive Protein Total Protein Albumin Triglycerides Arterial Blood Glucose 208 H Arterial Blood Ionized Calcium Urine WBC (Auto) U Epithel Cells (Auto) Urine Creatinine Random Vancomycin Coronavirus (PCR) Crossmatch 04/09/21 04/10/21 04/10/21 23:31 04:45 04:45 WBC 18.0 H RBC 2.65 L Hgb 7.4 L Hct 23.3 L MCH MCHC RDW 18.5 H Plt Count Lymph % (Auto) [place] # (Auto) Eos # (Auto) Seg Neutrophils % Lymphocytes % (Manual) Eosinophils % (Manual) Basophils % (Manual) Nucleated RBC % Seg Neutrophils # Seg Neutrophils # Man Lymphocytes # (Manual) Monocytes # (Manual) Eosinophils # (Manual) Basophils # (Manual) Percent Retic PT INR Fibrinogen D-Dimer ABG pH POC ABG pCO2 POC ABG pO2 ABG pO2 ABG HCO3 ABG O2 Saturation ABG Base Excess ABG Hemoglobin ABG Oxyhemoglobin ABG Sodium ABG Potassium ABG Chloride ABG Glucose Oxyhemoglobin Carboxyhemoglobin Sodium Potassium 5.5 H Chloride Carbon Dioxide 21 L BUN 83 H Creatinine 3.4 H Glucose 211 H POC Glucose 162 H Hemoglobin A1c Calcium Phosphorus Magnesium AST ALT Alkaline Phosphatase Lactate Dehydrogenase C-Reactive Protein Total Protein Albumin Triglycerides Arterial Blood Glucose Arterial Blood Ionized Calcium Urine WBC (Auto) U Epithel Cells (Auto) Urine Creatinine Random Vancomycin Coronavirus (PCR) Crossmatch 04/10/21 04/10/21 04/10/21 05:01 11:58 17:42 WBC RBC Hgb Hct MCH MCHC RDW Plt Count Lymph % (Auto) [place] # (Auto) Eos # (Auto) Seg Neutrophils % Lymphocytes % (Manual) Eosinophils % (Manual) Basophils % (Manual) Nucleated RBC % Seg Neutrophils # Seg Neutrophils # Man Lymphocytes # (Manual) Monocytes # (Manual) Eosinophils # (Manual) Basophils # (Manual) Percent Retic PT INR Fibrinogen D-Dimer ABG pH POC ABG pCO2 POC ABG pO2 ABG pO2 ABG HCO3 ABG O2 Saturation ABG Base Excess ABG Hemoglobin ABG Oxyhemoglobin ABG Sodium ABG Potassium ABG Chloride ABG Glucose Oxyhemoglobin Carboxyhemoglobin Sodium Potassium Chloride Carbon Dioxide BUN Creatinine Glucose POC Glucose 183 H 136 H 166 H Hemoglobin A1c Calcium Phosphorus Magnesium AST ALT Alkaline Phosphatase Lactate Dehydrogenase C-Reactive Protein Total Protein Albumin Triglycerides Arterial Blood Glucose Arterial Blood Ionized Calcium Urine WBC (Auto) U Epithel Cells (Auto) Urine Creatinine Random Vancomycin Coronavirus (PCR) Crossmatch 04/11/21 04/11/21 04/11/21 00:02 04:15 04:15 WBC 16.3 H RBC 2.53 L Hgb 7.0 L Hct 22.6 L MCH MCHC RDW 18.4 H Plt Count Lymph % (Auto) [place] # (Auto) Eos # (Auto) Seg Neutrophils % Lymphocytes % (Manual) Eosinophils % (Manual) Basophils % (Manual) Nucleated RBC % Seg Neutrophils # Seg Neutrophils # Man Lymphocytes # (Manual) Monocytes # (Manual) Eosinophils # (Manual) Basophils # (Manual) Percent Retic PT INR Fibrinogen D-Dimer ABG pH POC ABG pCO2 POC ABG pO2 ABG pO2 ABG HCO3 ABG O2 Saturation ABG Base Excess ABG Hemoglobin ABG Oxyhemoglobin ABG Sodium ABG Potassium ABG Chloride ABG Glucose Oxyhemoglobin Carboxyhemoglobin Sodium Potassium Chloride Carbon Dioxide BUN 71 H Creatinine 3.1 H Glucose 183 H POC Glucose 155 H Hemoglobin A1c Calcium Phosphorus Magnesium AST ALT Alkaline Phosphatase Lactate Dehydrogenase C-Reactive Protein Total Protein Albumin Triglycerides 406 H Arterial Blood Glucose Arterial Blood Ionized Calcium Urine WBC (Auto) U Epithel Cells (Auto) Urine Creatinine Random Vancomycin Coronavirus (PCR) Crossmatch 04/11/21 04/11/21 04/11/21 05:46 11:34 11:50 WBC RBC Hgb 6.7 L Hct 20.8 L MCH MCHC RDW Plt Count Lymph % (Auto) [place] # (Auto) Eos # (Auto) Seg Neutrophils % Lymphocytes % (Manual) Eosinophils % (Manual) Basophils % (Manual) Nucleated RBC % Seg Neutrophils # Seg Neutrophils # Man Lymphocytes # (Manual) Monocytes # (Manual) Eosinophils # (Manual) Basophils # (Manual) Percent Retic PT INR Fibrinogen D-Dimer ABG pH POC ABG pCO2 POC ABG pO2 ABG pO2 ABG HCO3 ABG O2 Saturation ABG Base Excess ABG Hemoglobin ABG Oxyhemoglobin ABG Sodium ABG Potassium ABG Chloride ABG Glucose Oxyhemoglobin Carboxyhemoglobin Sodium Potassium Chloride Carbon Dioxide BUN Creatinine Glucose POC Glucose 157 H 132 H Hemoglobin A1c Calcium Phosphorus Magnesium AST ALT Alkaline Phosphatase Lactate Dehydrogenase C-Reactive Protein Total Protein Albumin Triglycerides Arterial Blood Glucose Arterial Blood Ionized Calcium Urine WBC (Auto) U Epithel Cells (Auto) Urine Creatinine Random Vancomycin Coronavirus (PCR) Crossmatch 04/11/21 13:39 WBC RBC Hgb Hct MCH MCHC RDW Plt Count Lymph % (Auto) [place] # (Auto) Eos # (Auto) Seg Neutrophils % Lymphocytes % (Manual) Eosinophils % (Manual) Basophils % (Manual) Nucleated RBC % Seg Neutrophils # Seg Neutrophils # Man Lymphocytes # (Manual) Monocytes # (Manual) Eosinophils # (Manual) Basophils # (Manual) Percent Retic PT INR Fibrinogen D-Dimer ABG pH POC ABG pCO2 POC ABG pO2 ABG pO2 ABG HCO3 ABG O2 Saturation ABG Base Excess ABG Hemoglobin ABG Oxyhemoglobin ABG Sodium ABG Potassium ABG Chloride ABG Glucose Oxyhemoglobin Carboxyhemoglobin Sodium Potassium Chloride Carbon Dioxide BUN Creatinine Glucose POC Glucose Hemoglobin A1c Calcium Phosphorus Magnesium AST ALT Alkaline Phosphatase Lactate Dehydrogenase C-Reactive Protein Total Protein Albumin Triglycerides Arterial Blood Glucose Arterial Blood Ionized Calcium Urine WBC (Auto) U Epithel Cells (Auto) Urine Creatinine Random Vancomycin Coronavirus (PCR) Crossmatch See Detail Allied health notes reviewed: RT
[2021-04-11] MEDS: MIDAZOLAM 100 MG in SODIUM CHLORIDE 0.9% 80 ML IV SCH (17:36)
[2021-04-11 18:05] LABS: Hematocrit 21.4 % (30.3-42.9); Hemoglobin 6.5 gm/dl (10.1-14.3)
[2021-04-12] MEDS: INSULIN LISPRO 100 UNIT/ML SUB-Q SCH ×4 (00:31→17:30)
[2021-04-12] MEDS: HYDROCORTISONE SOD SUCC 100 MG/2 ML VIAL IV SCH ×3 (00:34→16:03)
[2021-04-12 01:49] LABS: Hematocrit 23.5 % (30.3-42.9); Hemoglobin 7.4 gm/dl (10.1-14.3)
[2021-04-12] MEDS: IPRATROPIUM/ALBUTEROL SULFATE 3 ML AMPUL.NEB IH SCH ×4 (02:41→20:00)
[2021-04-12] MEDS: fentaNYL DRIP Premix 2,000 MCG/100 ML BAG IV SCH ×5 (02:55→20:41)
[2021-04-12] MEDS ORDERED: SODIUM CHLORIDE IV SCH (04:00)
[2021-04-12] MEDS ORDERED: NOREPINEPHRINE IV SCH (04:00)
--- NOTE | 2021-04-12 04:50 | XRay Report ---
CHEST 1 VIEW 04/12/2021 3:27 AM INDICATION / CLINICAL INFORMATION: Hypoxia. COMPARISON: 04/08/21. FINDINGS: SUPPORT DEVICES: The positions of the endotracheal tube, nasogastric tube and right jugular CVL have not changed. HEART / MEDIASTINUM: Unchanged. LUNGS / PLEURA: There are moderate patchy parenchymal opacities throughout both lungs, mildly improve d. No pneumothorax. ADDITIONAL FINDINGS: No significant additional findings. IMPRESSION: Mild improvement in bilateral parenchymal disease. Signer Name: Alex Rao MD Signed: 04/12/2021 4:46 AM Workstation Name: [id number]
[2021-04-12 04:54] LABS: Hemoglobin 7.6 gm/dl (10.1-14.3); Mean Corpuscular HGB Conc 32 % (30-34); Mean Corpuscular Volume 89 fl (79-97); Platelet Count 140 K/mm3 (140-440); Red Blood Count 2.68 M/mm3 (3.65-5.03)
[2021-04-12 05:19] LABS: Calcium 8.8 mg/dL (8.4-10.2)
[2021-04-12 06:05] LABS: ABG Base Excess -3.6 mmol/L (-2.0-3.0); ABG HCO3 23.5 mmol/L (20.0-26.0); ABG Methemoglobin 0.1 % (0.0-1.5); ABG Oxygen Saturation 94.1 % (95.0-99.0); ABG PCO2 54.5 mm Hg; ABG PH 7.253 pH Units (7.350-7.450); ABG PO2 79.6 mm Hg (80.0-90.0)
--- NOTE | 2021-04-12 07:24 | Progress Note ---
Assessment and Plan Acute hypoxemic respiratory failure Acute asthma exacerbation Morbid obesity Crohn's disease Metabolic acidosis Acute kidney injury on HD Coronavirus infection Pneumonia (CAP) Oropharyngeal dysphagia Obesity Drug rash s/p steroids - continue to wean vasopressors for target MAP > 65 mmHg (currently on Norepinephrine ) -Continue with stress dose steroids - nephrology input appreciated; HD/UF for toxin and volume clearance - continue to wean supplemental oxygen to keep SpO2 88-90% - VAP bundle addressed, aspiration precautions HOB >30 - continue lung protective strategies, permissive hypercarbia acceptable -Follow bronchial washings cultures -Supportive transfusions to keep HgB >7g/DL - continue bronchodilators with pulmonary hygiene per RT - wean per pulmonary driven protocols otherwise - continue accuchecks with glycemic control per SSI (While critically ill target blood glucose of 140-180 mg/dL; avoid hypoglycemia) - sedation prn for target RASS 0 to -1 - avoid nephrotoxins, renally dose all medications - continue to avoid benzodiazepines, reduce the possibility of delirium - prn analgesia per CPOT score - Maintenance of sleep-wake cycle, avoid delirium - continue enteral nutritional support at goal rate as tolerated - Stress ulcer prophylaxis - PT/OT/ROM exercises - continue mobility, off loading, frequent turning per facility protocol for pressure ulcer prevention - Monitor hemodynamics closely - continue other care per attending / other consultants COVID SPECIFIC INTERVENTIONS - repeat COVID tests result negative CONDITION: CRITICAL PROGNOSIS: GUARDED CODE STATUS: FULL CODE The high probability of a clinically significant, sudden or life-threatening deterioration of the [respiratory, cardiovascular, renal & neurologic] system(s) required my full and direct attention, intervention and personal management. The aggregate critical care time was [35] minutes without overlap. Time includes spent on; [x] Data Review and interpretation [x] Patient assessment and monitoring of vital signs [x] Documentation [x] Medication orders and management Subjective Date of service: 04/12/21 Principal diagnosis: Ac hypoxemic resp failure; AE-Asthma; SAI; Crohn's; Pneumonia Interval history: Patient is seen today for: Acute hypoxemic respiratory failure; AE-Asthma; SAI; Crohn's disease; COVID-19 infection; Pneumonia (CAP) Seen and examined at bedside; 24hour events reviewed; nursing and respiratory care staff consulted; no adverse overnight events reported to me; resting in bed; remains on MVS; remains on vasopressors, but down to one pressor- Levophed at 6mcg; no emesis or overt aspiration. transfused 1 unit PRBC yesterday. Low grade fevers Remains ACPC Pi 40, PEEP +10/FIO2 70% ABG Objective Vital Signs - 12hr 04/11/21 04/11/21 04/11/21 19:31 19:40 19:43 Temperature 101.3 F H 101.3 F H Pulse Rate 110 H 108 H Pulse Rate [ Anterior Bilateral Throughout] Pulse Rate [ From Monitor] Respiratory 30 H 30 H Rate Respiratory Rate [Anterior Bilateral Throughout] Blood Pressure 104/56 O2 Sat by Pulse 97 96 Oximetry 04/11/21 04/11/21 04/11/21 19:45 20:00 20:01 Temperature Pulse Rate 108 H 115 H 107 H Pulse Rate [ Anterior Bilateral Throughout] Pulse Rate [ 115 H From Monitor] Respiratory 30 H 30 H 30 H Rate Respiratory Rate [Anterior Bilateral Throughout] Blood Pressure O2 Sat by Pulse 96 100 97 Oximetry 04/11/21 04/11/21 04/11/21 20:15 20:31 20:45 Temperature Pulse Rate 106 H 108 H 107 H Pulse Rate [ Anterior Bilateral Throughout] Pulse Rate [ From Monitor] Respiratory 30 H 30 H 30 H Rate Respiratory Rate [Anterior Bilateral Throughout] Blood Pressure O2 Sat by Pulse 97 96 95 Oximetry 04/11/21 04/11/21 04/11/21 20:46 20:56 21:01 Temperature Pulse Rate 107 H 108 H Pulse Rate [ 108 H Anterior Bilateral Throughout] Pulse Rate [ From Monitor] Respiratory 30 H Rate Respiratory 30 H Rate [Anterior Bilateral Throughout] Blood Pressure 84/48 O2 Sat by Pulse 95 97 Oximetry 04/11/21 04/11/21 04/11/21 21:15 21:31 21:45 Temperature Pulse Rate 105 H 106 H 108 H Pulse Rate [ Anterior Bilateral Throughout] Pulse Rate [ From Monitor] Respiratory 30 H 30 H 30 H Rate Respiratory Rate [Anterior Bilateral Throughout] Blood Pressure O2 Sat by Pulse 98 98 97 Oximetry 04/11/21 04/11/21 04/11/21 22:01 22:15 22:31 Temperature Pulse Rate 112 H 115 H 119 H Pulse Rate [ Anterior Bilateral Throughout] Pulse Rate [ From Monitor] Respiratory 31 H 30 H 30 H Rate Respiratory Rate [Anterior Bilateral Throughout] Blood Pressure O2 Sat by Pulse 96 96 96 Oximetry 04/11/21 04/11/21 04/11/21 22:45 23:00 23:15 Temperature Pulse Rate 117 H 116 H 117 H Pulse Rate [ Anterior Bilateral Throughout] Pulse Rate [ From Monitor] Respiratory 30 H 30 H 30 H Rate Respiratory Rate [Anterior Bilateral Throughout] Blood Pressure O2 Sat by Pulse 96 97 97 Oximetry 04/11/21 04/11/21 04/11/21 23:31 23:35 23:45 Temperature Pulse Rate 129 H 128 H 129 H Pulse Rate [ Anterior Bilateral Throughout] Pulse Rate [ From Monitor] Respiratory 30 H 31 H 24 Rate Respiratory Rate [Anterior Bilateral Throughout] Blood Pressure O2 Sat by Pulse 96 96 97 Oximetry 04/12/21 04/12/21 04/12/21 00:00 00:01 00:14 Temperature 101.3 F H Pulse Rate 119 H 129 H 121 H Pulse Rate [ Anterior Bilateral Throughout] Pulse Rate [ 115 H From Monitor] Respiratory 30 H 30 H Rate Respiratory Rate [Anterior Bilateral Throughout] Blood Pressure 108/54 O2 Sat by Pulse 100 91 97 Oximetry 04/12/21 04/12/21 04/12/21 00:15 00:31 00:45 Temperature Pulse Rate 121 H 122 H 119 H Pulse Rate [ Anterior Bilateral Throughout] Pulse Rate [ From Monitor] Respiratory 23 22 19 Rate Respiratory Rate [Anterior Bilateral Throughout] Blood Pressure O2 Sat by Pulse 97 98 99 Oximetry 04/12/21 04/12/21 04/12/21 01:01 01:15 01:31 Temperature Pulse Rate 118 H 120 H 118 H Pulse Rate [ Anterior Bilateral Throughout] Pulse Rate [ From Monitor] Respiratory 19 16 15 Rate Respiratory Rate [Anterior Bilateral Throughout] Blood Pressure O2 Sat by Pulse 99 99 99 Oximetry 04/12/21 04/12/21 04/12/21 01:45 02:01 02:15 Temperature Pulse Rate 126 H 130 H 131 H Pulse Rate [ Anterior Bilateral Throughout] Pulse Rate [ From Monitor] Respiratory 31 H 19 Rate Respiratory Rate [Anterior Bilateral Throughout] Blood Pressure O2 Sat by Pulse 100 98 99 Oximetry 04/12/21 04/12/21 04/12/21 02:31 02:37 02:45 Temperature Pulse Rate 130 H 132 H Pulse Rate [ 130 H Anterior Bilateral Throughout] Pulse Rate [ From Monitor] Respiratory 17 17 Rate Respiratory 33 H Rate [Anterior Bilateral Throughout] Blood Pressure O2 Sat by Pulse 95 93 Oximetry 04/12/21 04/12/21 04/12/21 03:01 03:15 03:31 Temperature Pulse Rate 131 H 130 H 126 H Pulse Rate [ Anterior Bilateral Throughout] Pulse Rate [ From Monitor] Respiratory 18 19 21 Rate Respiratory Rate [Anterior Bilateral Throughout] Blood Pressure O2 Sat by Pulse 96 85 100 Oximetry 04/12/21 04/12/21 04/12/21 03:45 04:00 04:01 Temperature 102.0 F H Pulse Rate 126 H 125 H 128 H Pulse Rate [ Anterior Bilateral Throughout] Pulse Rate [ 115 H From Monitor] Respiratory 19 30 H 24 Rate Respiratory Rate [Anterior Bilateral Throughout] Blood Pressure O2 Sat by Pulse 99 100 100 Oximetry 04/12/21 04/12/21 04/12/21 04:15 04:18 04:31 Temperature Pulse Rate 130 H 128 H 130 H Pulse Rate [ Anterior Bilateral Throughout] Pulse Rate [ From Monitor] Respiratory 22 22 Rate Respiratory Rate [Anterior Bilateral Throughout] Blood Pressure 146/82 O2 Sat by Pulse 99 100 98 Oximetry 04/12/21 04/12/21 04/12/21 04:45 05:01 05:15 Temperature Pulse Rate 130 H 127 H 126 H Pulse Rate [ Anterior Bilateral Throughout] Pulse Rate [ From Monitor] Respiratory 21 18 17 Rate Respiratory Rate [Anterior Bilateral Throughout] Blood Pressure O2 Sat by Pulse 100 100 100 Oximetry 04/12/21 04/12/21 04/12/21 05:30 05:45 06:01 Temperature Pulse Rate 126 H 126 H 126 H Pulse Rate [ Anterior Bilateral Throughout] Pulse Rate [ From Monitor] Respiratory 16 16 16 Rate Respiratory Rate [Anterior Bilateral Throughout] Blood Pressure O2 Sat by Pulse 100 100 100 Oximetry 04/12/21 04/12/21 04/12/21 06:15 06:31 06:45 Temperature Pulse Rate 126 H 129 H 126 H Pulse Rate [ Anterior Bilateral Throughout] Pulse Rate [ From Monitor] Respiratory 16 20 16 Rate Respiratory Rate [Anterior Bilateral Throughout] Blood Pressure O2 Sat by Pulse 100 100 100 Oximetry 04/12/21 07:01 Temperature Pulse Rate 128 H Pulse Rate [ Anterior Bilateral Throughout] Pulse Rate [ From Monitor] Respiratory 17 Rate Respiratory Rate [Anterior Bilateral Throughout] Blood Pressure O2 Sat by Pulse 100 Oximetry Constitutional: appears uncomfortable, other (morbidly obese female with no ventilator dyssynchrony, peeling skin rash, anarsaca) Eyes: non-icteric, other (scleral erythema / bleeding is improving) ENT: oropharynx moist, other (ETT 24 cm BALJINDER, suprior aspect of her lip, a full thickess wound) Neck: supple, no lymphadenopathy, no JVD, other (large circumference) Effort: mildly labored Ascultation: Bilateral: diminished breath sounds, rhonchi Percussion: Bilateral: not dull Cardiovascular: regular rate and rhythm, other (S1,S2) Gastrointestinal: normoactive bowel sounds, soft, non-tender, non-distended (protuberant) Integumentary: rash ( ), other Extremities: no cyanosis, pulses normal, no ischemia or petechiae, anasarca Neurologic: pupils equal and round, other (sedated) Psychiatric: other (unable to assess) CBC and BMP: 04/12/21 04:30 04/12/21 04:30 ABG, PT/INR, D-dimer: ABG ABG pH 7.253 pH Units (7.350-7.450) L 04/12/21 02:52 POC ABG pCO2 63.4 mmHg (32.0-48.0) H 04/09/21 21:00 ABG pCO2 54.5 mm Hg 04/12/21 02:52 POC ABG pO2 83.0 mmHg (83-108) 04/09/21 21:00 ABG pO2 79.6 mm Hg (80.0-90.0) L 04/12/21 02:52 POC ABG HCO3 23.8 04/09/21 21:00 ABG O2 Saturation 94.1 % (95.0-99.0) L 04/12/21 02:52 PT/INR, D-dimer PT 13.9 Sec. (12.2-14.9) 04/04/21 07:55 INR 0.96 (0.87-1.13) 04/04/21 07:55 D-Dimer 2696.79 ng/mlDDU (0-234) H 04/08/21 04:40 Abnormal lab findings: Abnormal Labs 03/13/21 03/13/21 03/13/21 13:26 13:26 15:40 WBC RBC Hgb Hct MCH 27 L MCHC RDW 17.0 H Plt Count Lymph % (Auto) Gooding # (Auto) Eos # (Auto) Seg Neutrophils % Lymphocytes % (Manual) Eosinophils % (Manual) Basophils % (Manual) Nucleated RBC % Seg Neutrophils # Seg Neutrophils # Man Lymphocytes # (Manual) Monocytes # (Manual) Eosinophils # (Manual) Basophils # (Manual) Percent Retic PT INR Fibrinogen D-Dimer ABG pH POC ABG pCO2 POC ABG pO2 ABG pO2 ABG HCO3 ABG O2 Saturation ABG Base Excess ABG Hemoglobin ABG Oxyhemoglobin ABG Sodium ABG Potassium ABG Chloride ABG Glucose Oxyhemoglobin Carboxyhemoglobin Sodium 136 L Potassium Chloride Carbon Dioxide BUN Creatinine Glucose 125 H 130 H POC Glucose Hemoglobin A1c Calcium Phosphorus Magnesium AST ALT Alkaline Phosphatase Lactate Dehydrogenase 235 H C-Reactive Protein 4.30 H Total Protein Albumin Triglycerides Arterial Blood Glucose Arterial Blood Ionized Calcium Urine WBC (Auto) U Epithel Cells (Auto) Urine Creatinine Random Vancomycin Coronavirus (PCR) Crossmatch 03/13/21 03/14/21 03/14/21 21:33 03:35 06:21 WBC 20.0 H RBC Hgb Hct MCH 27 L MCHC RDW 17.5 H Plt Count Lymph % (Auto) 7.8 L Gooding # (Auto) 1.3 H Eos # (Auto) Seg Neutrophils % 85.4 H Lymphocytes % (Manual) Eosinophils % (Manual) Basophils % (Manual) Nucleated RBC % Seg Neutrophils # 17.1 H Seg Neutrophils # Man Lymphocytes # (Manual) Monocytes # (Manual) Eosinophils # (Manual) Basophils # (Manual) Percent Retic PT INR Fibrinogen D-Dimer ABG pH 7.323 L 7.234 L POC ABG pCO2 POC ABG pO2 ABG pO2 69.8 L ABG HCO3 ABG O2 Saturation 92.9 L 94.9 L ABG Base Excess -3.3 L -5.4 L ABG Hemoglobin ABG Oxyhemoglobin ABG Sodium ABG Potassium ABG Chloride ABG Glucose Oxyhemoglobin 91.2 L 93.2 L Carboxyhemoglobin Sodium Potassium Chloride Carbon Dioxide BUN Creatinine Glucose POC Glucose Hemoglobin A1c Calcium Phosphorus Magnesium AST ALT Alkaline Phosphatase Lactate Dehydrogenase C-Reactive Protein Total Protein Albumin Triglycerides Arterial Blood Glucose Arterial Blood Ionized Calcium Urine WBC (Auto) U Epithel Cells (Auto) Urine Creatinine Random Vancomycin Coronavirus (PCR) Crossmatch 03/14/21 03/14/21 03/14/21 06:21 07:47 11:21 WBC RBC Hgb Hct MCH MCHC RDW Plt Count Lymph % (Auto) Good[place] # (Auto) Eos # (Auto) Seg Neutrophils % Lymphocytes % (Manual) Eosinophils % (Manual) Basophils % (Manual) Nucleated RBC % Seg Neutrophils # Seg Neutrophils # Man Lymphocytes # (Manual) Monocytes # (Manual) Eosinophils # (Manual) Basophils # (Manual) Percent Retic PT INR Fibrinogen D-Dimer ABG pH POC ABG pCO2 POC ABG pO2 ABG pO2 ABG HCO3 ABG O2 Saturation ABG Base Excess ABG Hemoglobin ABG Oxyhemoglobin ABG Sodium ABG Potassium ABG Chloride ABG Glucose Oxyhemoglobin Carboxyhemoglobin Sodium 136 L 136 L Potassium 6.2 H* D 5.4 H Chloride Carbon Dioxide 21 L 21 L BUN Creatinine 1.5 H D 1.8 H Glucose 144 H 141 H POC Glucose 147 H Hemoglobin A1c Calcium Phosphorus Magnesium AST ALT Alkaline Phosphatase Lactate Dehydrogenase C-Reactive Protein Total Protein 8.7 H 9.2 H Albumin 3.8 L Triglycerides Arterial Blood Glucose Arterial Blood Ionized Calcium Urine WBC (Auto) U Epithel Cells (Auto) Urine Creatinine Random Vancomycin Coronavirus (PCR) Crossmatch 03/14/21 03/14/21 03/14/21 17:29 17:50 18:35 WBC RBC Hgb Hct MCH MCHC RDW Plt Count Lymph % (Auto) Good[place] # (Auto) Eos # (Auto) Seg Neutrophils % Lymphocytes % (Manual) Eosinophils % (Manual) Basophils % (Manual) Nucleated RBC % Seg Neutrophils # Seg Neutrophils # Man Lymphocytes # (Manual) Monocytes # (Manual) Eosinophils # (Manual) Basophils # (Manual) Percent Retic PT INR Fibrinogen D-Dimer ABG pH POC ABG pCO2 POC ABG pO2 ABG pO2 ABG HCO3 ABG O2 Saturation ABG Base Excess ABG Hemoglobin ABG Oxyhemoglobin ABG Sodium ABG Potassium ABG Chloride ABG Glucose Oxyhemoglobin Carboxyhemoglobin Sodium 135 L Potassium 6.4 H* Chloride Carbon Dioxide 15 L BUN 26 H Creatinine 3.4 H D Glucose 165 H POC Glucose 209 H Hemoglobin A1c Calcium Phosphorus Magnesium AST ALT Alkaline Phosphatase Lactate Dehydrogenase C-Reactive Protein Total Protein Albumin Triglycerides Arterial Blood Glucose Arterial Blood Ionized Calcium Urine WBC (Auto) U Epithel Cells (Auto) Urine Creatinine 40.1 H Random Vancomycin Coronavirus (PCR) Crossmatch 03/14/21 03/14/21 03/14/21 18:46 22:23 23:52 WBC RBC Hgb Hct MCH MCHC RDW Plt Count Lymph % (Auto) Good[place] # (Auto) Eos # (Auto) Seg Neutrophils % Lymphocytes % (Manual) Eosinophils % (Manual) Basophils % (Manual) Nucleated RBC % Seg Neutrophils # Seg Neutrophils # Man Lymphocytes # (Manual) Monocytes # (Manual) Eosinophils # (Manual) Basophils # (Manual) Percent Retic PT INR Fibrinogen D-Dimer ABG pH 7.270 L POC ABG pCO2 POC ABG pO2 63.4 L ABG pO2 ABG HCO3 ABG O2 Saturation ABG Base Excess ABG Hemoglobin ABG Oxyhemoglobin 90.2 L ABG Sodium 134.9 L ABG Potassium 5.3 H ABG Chloride ABG Glucose 134 H Oxyhemoglobin Carboxyhemoglobin Sodium 136 L Potassium 5.2 H Chloride Carbon Dioxide 20 L BUN 29 H Creatinine 3.6 H Glucose 236 H POC Glucose 128 H Hemoglobin A1c Calcium Phosphorus Magnesium AST ALT Alkaline Phosphatase Lactate Dehydrogenase C-Reactive Protein Total Protein Albumin 3.2 L Triglycerides Arterial Blood Glucose 134 H Arterial Blood Ionized Calcium Urine WBC (Auto) U Epithel Cells (Auto) Urine Creatinine Random Vancomycin Coronavirus (PCR) Crossmatch 03/14/21 03/15/21 03/15/21 Unknown 05:00 05:09 WBC 22.5 H RBC Hgb Hct MCH 27 L MCHC RDW 17.6 H Plt Count Lymph % (Auto) Good[place] # (Auto) Eos # (Auto) Seg Neutrophils % Lymphocytes % (Manual) Eosinophils % (Manual) Basophils % (Manual) Nucleated RBC % Seg Neutrophils # Seg Neutrophils # Man Lymphocytes # (Manual) Monocytes # (Manual) Eosinophils # (Manual) Basophils # (Manual) Percent Retic PT INR Fibrinogen D-Dimer ABG pH POC ABG pCO2 POC ABG pO2 ABG pO2 ABG HCO3 ABG O2 Saturation ABG Base Excess ABG Hemoglobin ABG Oxyhemoglobin ABG Sodium ABG Potassium ABG Chloride ABG Glucose Oxyhemoglobin Carboxyhemoglobin Sodium Potassium Chloride Carbon Dioxide BUN Creatinine Glucose POC Glucose 116 H Hemoglobin A1c Calcium Phosphorus Magnesium AST ALT Alkaline Phosphatase Lactate Dehydrogenase C-Reactive Protein Total Protein Albumin Triglycerides Arterial Blood Glucose Arterial Blood Ionized Calcium Urine WBC (Auto) U Epithel Cells (Auto) Urine Creatinine Random Vancomycin Coronavirus (PCR) Positive A Crossmatch 03/15/21 03/15/21 03/15/21 05:09 05:09 05:09 WBC RBC Hgb Hct MCH MCHC RDW Plt Count Lymph % (Auto) Good[place] # (Auto) Eos # (Auto) Seg Neutrophils % Lymphocytes % (Manual) Eosinophils % (Manual) Basophils % (Manual) Nucleated RBC % Seg Neutrophils # Seg Neutrophils # Man Lymphocytes # (Manual) Monocytes # (Manual) Eosinophils # (Manual) Basophils # (Manual) Percent Retic PT INR Fibrinogen D-Dimer ABG pH POC ABG pCO2 POC ABG pO2 ABG pO2 ABG HCO3 ABG O2 Saturation ABG Base Excess ABG Hemoglobin ABG Oxyhemoglobin ABG Sodium ABG Potassium ABG Chloride ABG Glucose Oxyhemoglobin Carboxyhemoglobin Sodium 136 L Potassium 6.5 H* D Chloride Carbon Dioxide 17 L BUN 41 H Creatinine 5.3 H Glucose 128 H POC Glucose Hemoglobin A1c 6.3 H Calcium Phosphorus Magnesium AST ALT Alkaline Phosphatase Lactate Dehydrogenase C-Reactive Protein 12.10 H Total Protein Albumin 3.1 L Triglycerides Arterial Blood Glucose Arterial Blood Ionized Calcium Urine WBC (Auto) U Epithel Cells (Auto) Urine Creatinine Random Vancomycin Coronavirus (PCR) Crossmatch 03/15/21 03/15/21 03/15/21 10:00 21:50 23:39 WBC RBC Hgb Hct MCH MCHC RDW Plt Count Lymph % (Auto) Good[place] # (Auto) Eos # (Auto) Seg Neutrophils % Lymphocytes % (Manual) Eosinophils % (Manual) Basophils % (Manual) Nucleated RBC % Seg Neutrophils # Seg Neutrophils # Man Lymphocytes # (Manual) Monocytes # (Manual) Eosinophils # (Manual) Basophils # (Manual) Percent Retic PT INR Fibrinogen D-Dimer ABG pH 7.098 L POC ABG pCO2 72.7 H POC ABG pO2 ABG pO2 162.5 H ABG HCO3 ABG O2 Saturation ABG Base Excess ABG Hemoglobin 10.1 L ABG Oxyhemoglobin ABG Sodium ABG Potassium 5.7 H ABG Chloride ABG Glucose Oxyhemoglobin Carboxyhemoglobin 0.4 L Sodium Potassium Chloride Carbon Dioxide BUN Creatinine Glucose POC Glucose 156 H Hemoglobin A1c Calcium Phosphorus Magnesium AST ALT Alkaline Phosphatase Lactate Dehydrogenase C-Reactive Protein Total Protein Albumin Triglycerides Arterial Blood Glucose Arterial Blood Ionized Calcium Urine WBC (Auto) U Epithel Cells (Auto) Urine Creatinine Random Vancomycin Coronavirus (PCR) Crossmatch 03/16/21 03/16/21 03/16/21 05:00 05:30 05:30 WBC 16.7 H RBC 3.59 L Hgb 9.6 L Hct 30.1 L MCH 27 L MCHC RDW 17.5 H Plt Count Lymph % (Auto) Good[place] # (Auto) Eos # (Auto) Seg Neutrophils % Lymphocytes % (Manual) Eosinophils % (Manual) Basophils % (Manual) Nucleated RBC % Seg Neutrophils # Seg Neutrophils # Man Lymphocytes # (Manual) Monocytes # (Manual) Eosinophils # (Manual) Basophils # (Manual) Percent Retic PT INR Fibrinogen D-Dimer ABG pH POC ABG pCO2 POC ABG pO2 ABG pO2 ABG HCO3 ABG O2 Saturation ABG Base Excess ABG Hemoglobin ABG Oxyhemoglobin ABG Sodium ABG Potassium ABG Chloride ABG Glucose Oxyhemoglobin Carboxyhemoglobin Sodium Potassium Chloride Carbon Dioxide BUN 46 H Creatinine 6.2 H Glucose 131 H POC Glucose Hemoglobin A1c Calcium Phosphorus 6.00 H D Magnesium AST ALT Alkaline Phosphatase Lactate Dehydrogenase 318 H C-Reactive Protein 18.60 H Total Protein Albumin 3.0 L Triglycerides Arterial Blood Glucose Arterial Blood Ionized Calcium Urine WBC (Auto) U Epithel Cells (Auto) Urine Creatinine Random Vancomycin Coronavirus (PCR) Crossmatch 03/16/21 03/16/21 03/16/21 05:51 06:37 08:58 WBC RBC Hgb Hct MCH MCHC RDW Plt Count Lymph % (Auto) [place] # (Auto) Eos # (Auto) Seg Neutrophils % Lymphocytes % (Manual) Eosinophils % (Manual) Basophils % (Manual) Nucleated RBC % Seg Neutrophils # Seg Neutrophils # Man Lymphocytes # (Manual) Monocytes # (Manual) Eosinophils # (Manual) Basophils # (Manual) Percent Retic PT INR Fibrinogen D-Dimer 3041.12 H ABG pH POC ABG pCO2 POC ABG pO2 ABG pO2 141.5 H ABG HCO3 ABG O2 Saturation ABG Base Excess ABG Hemoglobin 9.7 L ABG Oxyhemoglobin ABG Sodium ABG Potassium ABG Chloride ABG Glucose Oxyhemoglobin Carboxyhemoglobin Sodium Potassium Chloride Carbon Dioxide BUN Creatinine Glucose POC Glucose 126 H Hemoglobin A1c Calcium Phosphorus Magnesium AST ALT Alkaline Phosphatase Lactate Dehydrogenase C-Reactive Protein Total Protein Albumin Triglycerides Arterial Blood Glucose Arterial Blood Ionized Calcium Urine WBC (Auto) U Epithel Cells (Auto) Urine Creatinine Random Vancomycin Coronavirus (PCR) Crossmatch 03/16/21 03/16/21 03/16/21 12:11 16:51 21:00 WBC RBC Hgb Hct MCH MCHC RDW Plt Count Lymph % (Auto) Good[place] # (Auto) Eos # (Auto) Seg Neutrophils % Lymphocytes % (Manual) Eosinophils % (Manual) Basophils % (Manual) Nucleated RBC % Seg Neutrophils # Seg Neutrophils # Man Lymphocytes # (Manual) Monocytes # (Manual) Eosinophils # (Manual) Basophils # (Manual) Percent Retic PT INR Fibrinogen D-Dimer ABG pH 7.239 L POC ABG pCO2 61.5 H POC ABG pO2 80.8 L ABG pO2 ABG HCO3 ABG O2 Saturation ABG Base Excess ABG Hemoglobin 11.4 L ABG Oxyhemoglobin 93.5 L ABG Sodium ABG Potassium 5.4 H ABG Chloride ABG Glucose 137 H Oxyhemoglobin Carboxyhemoglobin 0.2 L Sodium Potassium Chloride Carbon Dioxide BUN Creatinine Glucose POC Glucose 156 H 133 H Hemoglobin A1c Calcium Phosphorus Magnesium AST ALT Alkaline Phosphatase Lactate Dehydrogenase C-Reactive Protein Total Protein Albumin Triglycerides Arterial Blood Glucose 137 H Arterial Blood Ionized Calcium Urine WBC (Auto) U Epithel Cells (Auto) Urine Creatinine Random Vancomycin Coronavirus (PCR) Crossmatch 03/16/21 03/17/21 03/17/21 23:42 05:23 05:23 WBC 18.4 H RBC Hgb Hct MCH 27 L MCHC RDW 17.4 H Plt Count Lymph % (Auto) Good[place] # (Auto) Eos # (Auto) Seg Neutrophils % Lymphocytes % (Manual) Eosinophils % (Manual) Basophils % (Manual) Nucleated RBC % Seg Neutrophils # Seg Neutrophils # Man Lymphocytes # (Manual) Monocytes # (Manual) Eosinophils # (Manual) Basophils # (Manual) Percent Retic PT INR Fibrinogen D-Dimer ABG pH POC ABG pCO2 POC ABG pO2 ABG pO2 ABG HCO3 ABG O2 Saturation ABG Base Excess ABG Hemoglobin ABG Oxyhemoglobin ABG Sodium ABG Potassium ABG Chloride ABG Glucose Oxyhemoglobin Carboxyhemoglobin Sodium Potassium 5.2 H Chloride Carbon Dioxide 21 L BUN 79 H Creatinine 8.6 H Glucose 124 H POC Glucose 133 H Hemoglobin A1c Calcium Phosphorus Magnesium AST ALT Alkaline Phosphatase Lactate Dehydrogenase C-Reactive Protein Total Protein Albumin 3.2 L Triglycerides 285 H Arterial Blood Glucose Arterial Blood Ionized Calcium Urine WBC (Auto) U Epithel Cells (Auto) Urine Creatinine Random Vancomycin Coronavirus (PCR) Crossmatch 03/17/21 03/17/21 03/17/21 05:23 10:48 12:20 WBC RBC Hgb Hct MCH MCHC RDW Plt Count Lymph % (Auto) [place] # (Auto) Eos # (Auto) Seg Neutrophils % Lymphocytes % (Manual) Eosinophils % (Manual) Basophils % (Manual) Nucleated RBC % Seg Neutrophils # Seg Neutrophils # Man Lymphocytes # (Manual) Monocytes # (Manual) Eosinophils # (Manual) Basophils # (Manual) Percent Retic PT INR Fibrinogen D-Dimer ABG pH 7.294 L POC ABG pCO2 POC ABG pO2 ABG pO2 90.3 H ABG HCO3 ABG O2 Saturation ABG Base Excess ABG Hemoglobin 9.9 L ABG Oxyhemoglobin ABG Sodium ABG Potassium ABG Chloride ABG Glucose Oxyhemoglobin Carboxyhemoglobin Sodium Potassium 5.2 H Chloride Carbon Dioxide 21 L BUN 79 H Creatinine 8.4 H Glucose 125 H POC Glucose 171 H Hemoglobin A1c Calcium Phosphorus 9.90 H D Magnesium 2.40 H AST ALT Alkaline Phosphatase Lactate Dehydrogenase C-Reactive Protein Total Protein Albumin Triglycerides Arterial Blood Glucose Arterial Blood Ionized Calcium Urine WBC (Auto) U Epithel Cells (Auto) Urine Creatinine Random Vancomycin Coronavirus (PCR) Crossmatch 03/17/21 03/17/21 03/18/21 17:24 21:00 04:30 WBC RBC Hgb Hct MCH MCHC RDW Plt Count Lymph % (Auto) [place] # (Auto) Eos # (Auto) Seg Neutrophils % Lymphocytes % (Manual) Eosinophils % (Manual) Basophils % (Manual) Nucleated RBC % Seg Neutrophils # Seg Neutrophils # Man Lymphocytes # (Manual) Monocytes # (Manual) Eosinophils # (Manual) Basophils # (Manual) Percent Retic PT INR Fibrinogen D-Dimer 9953.09 H ABG pH 7.310 L POC ABG pCO2 54.5 H POC ABG pO2 62.3 L ABG pO2 ABG HCO3 ABG O2 Saturation ABG Base Excess ABG Hemoglobin 10.2 L ABG Oxyhemoglobin 88.6 L ABG Sodium ABG Potassium 4.7 H ABG Chloride ABG Glucose 99 H Oxyhemoglobin Carboxyhemoglobin 0.3 L Sodium Potassium Chloride Carbon Dioxide BUN Creatinine Glucose POC Glucose 121 H Hemoglobin A1c Calcium Phosphorus Magnesium AST ALT Alkaline Phosphatase Lactate Dehydrogenase C-Reactive Protein Total Protein Albumin Triglycerides Arterial Blood Glucose 99 H Arterial Blood Ionized Calcium 4.3 L Urine WBC (Auto) U Epithel Cells (Auto) Urine Creatinine Random Vancomycin Coronavirus (PCR) Crossmatch 03/18/21 03/18/21 03/18/21 04:30 04:30 11:34 WBC 12.8 H RBC 3.49 L Hgb 9.4 L Hct 29.3 L MCH 27 L MCHC RDW 17.4 H Plt Count Lymph % (Auto) [place] # (Auto) Eos # (Auto) Seg Neutrophils % Lymphocytes % (Manual) Eosinophils % (Manual) Basophils % (Manual) Nucleated RBC % Seg Neutrophils # Seg Neutrophils # Man Lymphocytes # (Manual) Monocytes # (Manual) Eosinophils # (Manual) Basophils # (Manual) Percent Retic PT INR Fibrinogen D-Dimer ABG pH POC ABG pCO2 POC ABG pO2 ABG pO2 ABG HCO3 ABG O2 Saturation ABG Base Excess ABG Hemoglobin ABG Oxyhemoglobin ABG Sodium ABG Potassium ABG Chloride ABG Glucose Oxyhemoglobin Carboxyhemoglobin Sodium Potassium Chloride Carbon Dioxide BUN 69 H Creatinine 7.3 H Glucose POC Glucose 114 H Hemoglobin A1c Calcium 8.2 L Phosphorus 7.60 H D Magnesium AST ALT Alkaline Phosphatase Lactate Dehydrogenase 477 H C-Reactive Protein 6.90 H Total Protein Albumin Triglycerides Arterial Blood Glucose Arterial Blood Ionized Calcium Urine WBC (Auto) U Epithel Cells (Auto) Urine Creatinine Random Vancomycin Coronavirus (PCR) Crossmatch 03/18/21 03/19/21 03/19/21 21:44 04:13 04:13 WBC 13.7 H RBC 3.32 L Hgb 9.0 L Hct 28.1 L MCH 27 L MCHC RDW 16.9 H Plt Count Lymph % (Auto) [place] # (Auto) Eos # (Auto) Seg Neutrophils % Lymphocytes % (Manual) Eosinophils % (Manual) Basophils % (Manual) Nucleated RBC % Seg Neutrophils # Seg Neutrophils # Man Lymphocytes # (Manual) Monocytes # (Manual) Eosinophils # (Manual) Basophils # (Manual) Percent Retic PT INR Fibrinogen D-Dimer ABG pH 7.290 L POC ABG pCO2 POC ABG pO2 ABG pO2 119.7 H ABG HCO3 28.0 H ABG O2 Saturation ABG Base Excess ABG Hemoglobin 9.6 L ABG Oxyhemoglobin ABG Sodium ABG Potassium ABG Chloride ABG Glucose Oxyhemoglobin Carboxyhemoglobin Sodium Potassium Chloride Carbon Dioxide BUN Creatinine Glucose POC Glucose Hemoglobin A1c Calcium Phosphorus Magnesium AST ALT Alkaline Phosphatase Lactate Dehydrogenase C-Reactive Protein Total Protein Albumin Triglycerides Arterial Blood Glucose Arterial Blood Ionized Calcium Urine WBC (Auto) U Epithel Cells (Auto) Urine Creatinine Random Vancomycin 43.5 H Coronavirus (PCR) Crossmatch 03/19/21 03/19/21 03/19/21 04:13 05:59 11:40 WBC RBC Hgb Hct MCH MCHC RDW Plt Count Lymph % (Auto) [place] # (Auto) Eos # (Auto) Seg Neutrophils % Lymphocytes % (Manual) Eosinophils % (Manual) Basophils % (Manual) Nucleated RBC % Seg Neutrophils # Seg Neutrophils # Man Lymphocytes # (Manual) Monocytes # (Manual) Eosinophils # (Manual) Basophils # (Manual) Percent Retic PT INR Fibrinogen D-Dimer ABG pH POC ABG pCO2 POC ABG pO2 ABG pO2 ABG HCO3 ABG O2 Saturation ABG Base Excess ABG Hemoglobin ABG Oxyhemoglobin ABG Sodium ABG Potassium ABG Chloride ABG Glucose Oxyhemoglobin Carboxyhemoglobin Sodium Potassium Chloride Carbon Dioxide BUN 55 H Creatinine 7.0 H Glucose POC Glucose 116 H 145 H Hemoglobin A1c Calcium 8.1 L Phosphorus 7.90 H Magnesium AST ALT Alkaline Phosphatase Lactate Dehydrogenase C-Reactive Protein Total Protein Albumin Triglycerides Arterial Blood Glucose Arterial Blood Ionized Calcium Urine WBC (Auto) U Epithel Cells (Auto) Urine Creatinine Random Vancomycin Coronavirus (PCR) Crossmatch 03/19/21 03/19/21 03/20/21 17:01 23:41 04:00 WBC 15.6 H RBC 3.55 L Hgb 9.6 L Hct MCH 27 L MCHC RDW 16.8 H Plt Count 139 L Lymph % (Auto) [place] # (Auto) Eos # (Auto) Seg Neutrophils % Lymphocytes % (Manual) Eosinophils % (Manual) Basophils % (Manual) Nucleated RBC % Seg Neutrophils # Seg Neutrophils # Man Lymphocytes # (Manual) Monocytes # (Manual) Eosinophils # (Manual) Basophils # (Manual) Percent Retic PT INR Fibrinogen D-Dimer ABG pH POC ABG pCO2 POC ABG pO2 ABG pO2 ABG HCO3 ABG O2 Saturation ABG Base Excess ABG Hemoglobin ABG Oxyhemoglobin ABG Sodium ABG Potassium ABG Chloride ABG Glucose Oxyhemoglobin Carboxyhemoglobin Sodium Potassium Chloride Carbon Dioxide BUN Creatinine Glucose POC Glucose 111 H 118 H Hemoglobin A1c Calcium Phosphorus Magnesium AST ALT Alkaline Phosphatase Lactate Dehydrogenase C-Reactive Protein Total Protein Albumin Triglycerides Arterial Blood Glucose Arterial Blood Ionized Calcium Urine WBC (Auto) U Epithel Cells (Auto) Urine Creatinine Random Vancomycin Coronavirus (PCR) Crossmatch 03/20/21 03/20/21 03/20/21 04:00 04:00 04:37 WBC RBC Hgb Hct MCH MCHC RDW Plt Count Lymph % (Auto) [place] # (Auto) Eos # (Auto) Seg Neutrophils % Lymphocytes % (Manual) Eosinophils % (Manual) Basophils % (Manual) Nucleated RBC % Seg Neutrophils # Seg Neutrophils # Man Lymphocytes # (Manual) Monocytes # (Manual) Eosinophils # (Manual) Basophils # (Manual) Percent Retic PT INR Fibrinogen D-Dimer > 58286 H ABG pH 7.306 L POC ABG pCO2 POC ABG pO2 ABG pO2 ABG HCO3 27.9 H ABG O2 Saturation ABG Base Excess ABG Hemoglobin 5.2 L ABG Oxyhemoglobin ABG Sodium ABG Potassium ABG Chloride ABG Glucose Oxyhemoglobin Carboxyhemoglobin Sodium Potassium 5.2 H Chloride 97.6 L Carbon Dioxide BUN 52 H Creatinine 6.2 H Glucose 104 H POC Glucose Hemoglobin A1c Calcium Phosphorus 8.60 H Magnesium AST ALT Alkaline Phosphatase Lactate Dehydrogenase C-Reactive Protein 6.90 H Total Protein Albumin Triglycerides Arterial Blood Glucose Arterial Blood Ionized Calcium Urine WBC (Auto) U Epithel Cells (Auto) Urine Creatinine Random Vancomycin Coronavirus (PCR) Crossmatch 03/20/21 03/20/21 03/20/21 13:50 17:46 17:56 WBC RBC Hgb Hct MCH MCHC RDW Plt Count Lymph % (Auto) [place] # (Auto) Eos # (Auto) Seg Neutrophils % Lymphocytes % (Manual) Eosinophils % (Manual) Basophils % (Manual) Nucleated RBC % Seg Neutrophils # Seg Neutrophils # Man Lymphocytes # (Manual) Monocytes # (Manual) Eosinophils # (Manual) Basophils # (Manual) Percent Retic PT INR Fibrinogen D-Dimer ABG pH POC ABG pCO2 POC ABG pO2 ABG pO2 ABG HCO3 ABG O2 Saturation ABG Base Excess ABG Hemoglobin ABG Oxyhemoglobin ABG Sodium ABG Potassium ABG Chloride ABG Glucose Oxyhemoglobin Carboxyhemoglobin Sodium Potassium Chloride Carbon Dioxide BUN 63 H 43 H Creatinine Glucose POC Glucose 145 H Hemoglobin A1c Calcium Phosphorus Magnesium AST ALT Alkaline Phosphatase Lactate Dehydrogenase C-Reactive Protein Total Protein Albumin Triglycerides Arterial Blood Glucose Arterial Blood Ionized Calcium Urine WBC (Auto) U Epithel Cells (Auto) Urine Creatinine Random Vancomycin Coronavirus (PCR) Crossmatch 03/20/21 03/21/21 03/21/21 23:18 06:58 06:58 WBC 14.4 H RBC 3.41 L Hgb 9.5 L Hct 28.6 L MCH MCHC RDW 17.4 H Plt Count 107 L Lymph % (Auto) [place] # (Auto) Eos # (Auto) Seg Neutrophils % Lymphocytes % (Manual) Eosinophils % (Manual) Basophils % (Manual) Nucleated RBC % Seg Neutrophils # Seg Neutrophils # Man Lymphocytes # (Manual) Monocytes # (Manual) Eosinophils # (Manual) Basophils # (Manual) Percent Retic PT INR Fibrinogen D-Dimer ABG pH POC ABG pCO2 POC ABG pO2 ABG pO2 ABG HCO3 ABG O2 Saturation ABG Base Excess ABG Hemoglobin ABG Oxyhemoglobin ABG Sodium ABG Potassium ABG Chloride ABG Glucose Oxyhemoglobin Carboxyhemoglobin Sodium Potassium Chloride Carbon Dioxide BUN 60 H Creatinine 7.7 H Glucose POC Glucose 106 H Hemoglobin A1c Calcium Phosphorus Magnesium AST ALT Alkaline Phosphatase Lactate Dehydrogenase C-Reactive Protein Total Protein Albumin Triglycerides Arterial Blood Glucose Arterial Blood Ionized Calcium Urine WBC (Auto) U Epithel Cells (Auto) Urine Creatinine Random Vancomycin Coronavirus (PCR) Crossmatch 03/21/21 03/21/21 03/21/21 11:11 18:04 Unknown WBC RBC Hgb Hct MCH MCHC RDW Plt Count Lymph % (Auto) [place] # (Auto) Eos # (Auto) Seg Neutrophils % Lymphocytes % (Manual) Eosinophils % (Manual) Basophils % (Manual) Nucleated RBC % Seg Neutrophils # Seg Neutrophils # Man Lymphocytes # (Manual) Monocytes # (Manual) Eosinophils # (Manual) Basophils # (Manual) Percent Retic PT INR Fibrinogen D-Dimer ABG pH 7.270 L POC ABG pCO2 58.7 H POC ABG pO2 76.9 L ABG pO2 ABG HCO3 ABG O2 Saturation ABG Base Excess ABG Hemoglobin 9.9 L ABG Oxyhemoglobin 92.4 L ABG Sodium 135.8 L ABG Potassium 4.6 H ABG Chloride ABG Glucose Oxyhemoglobin Carboxyhemoglobin 0.1 L Sodium Potassium Chloride Carbon Dioxide BUN Creatinine Glucose POC Glucose 109 H 141 H Hemoglobin A1c Calcium Phosphorus Magnesium AST ALT Alkaline Phosphatase Lactate Dehydrogenase C-Reactive Protein Total Protein Albumin Triglycerides Arterial Blood Glucose Arterial Blood Ionized Calcium 4.5 L Urine WBC (Auto) U Epithel Cells (Auto) Urine Creatinine Random Vancomycin Coronavirus (PCR) Crossmatch 03/22/21 03/22/21 03/22/21 03:09 07:10 10:00 WBC RBC Hgb Hct MCH MCHC RDW Plt Count Lymph % (Auto) [place] # (Auto) Eos # (Auto) Seg Neutrophils % Lymphocytes % (Manual) Eosinophils % (Manual) Basophils % (Manual) Nucleated RBC % Seg Neutrophils # Seg Neutrophils # Man Lymphocytes # (Manual) Monocytes # (Manual) Eosinophils # (Manual) Basophils # (Manual) Percent Retic PT INR Fibrinogen D-Dimer ABG pH 7.206 L 7.245 L POC ABG pCO2 55.6 H POC ABG pO2 ABG pO2 90.6 H ABG HCO3 ABG O2 Saturation ABG Base Excess -4.4 L ABG Hemoglobin 9.0 L 8.4 L ABG Oxyhemoglobin ABG Sodium 123.4 L ABG Potassium 5.6 H ABG Chloride ABG Glucose 106 H Oxyhemoglobin 94.5 L Carboxyhemoglobin 0.1 L Sodium Potassium 5.4 H Chloride 96.8 L Carbon Dioxide BUN 89 H Creatinine 8.7 H Glucose 131 H POC Glucose Hemoglobin A1c Calcium Phosphorus Magnesium AST ALT Alkaline Phosphatase Lactate Dehydrogenase C-Reactive Protein 9.40 H Total Protein Albumin Triglycerides Arterial Blood Glucose 106 H Arterial Blood Ionized Calcium Urine WBC (Auto) U Epithel Cells (Auto) Urine Creatinine Random Vancomycin Coronavirus (PCR) Crossmatch 03/22/21 03/22/21 03/22/21 10:00 12:37 13:19 WBC RBC 3.05 L Hgb 8.4 L Hct 25.5 L MCH MCHC RDW 17.5 H Plt Count 108 L Lymph % (Auto) [place] # (Auto) Eos # (Auto) Seg Neutrophils % Lymphocytes % (Manual) Eosinophils % (Manual) Basophils % (Manual) Nucleated RBC % Seg Neutrophils # Seg Neutrophils # Man Lymphocytes # (Manual) Monocytes # (Manual) Eosinophils # (Manual) Basophils # (Manual) Percent Retic PT INR Fibrinogen D-Dimer ABG pH POC ABG pCO2 POC ABG pO2 ABG pO2 ABG HCO3 ABG O2 Saturation ABG Base Excess ABG Hemoglobin ABG Oxyhemoglobin ABG Sodium ABG Potassium ABG Chloride ABG Glucose Oxyhemoglobin Carboxyhemoglobin Sodium Potassium Chloride Carbon Dioxide BUN Creatinine 8.7 H Glucose POC Glucose 140 H Hemoglobin A1c Calcium Phosphorus Magnesium AST ALT Alkaline Phosphatase Lactate Dehydrogenase C-Reactive Protein Total Protein Albumin Triglycerides Arterial Blood Glucose Arterial Blood Ionized Calcium Urine WBC (Auto) U Epithel Cells (Auto) Urine Creatinine Random Vancomycin Coronavirus (PCR) Crossmatch 03/22/21 03/22/21 03/22/21 13:40 17:14 18:21 WBC RBC Hgb Hct MCH MCHC RDW Plt Count Lymph % (Auto) [place] # (Auto) Eos # (Auto) Seg Neutrophils % Lymphocytes % (Manual) Eosinophils % (Manual) Basophils % (Manual) Nucleated RBC % Seg Neutrophils # Seg Neutrophils # Man Lymphocytes # (Manual) Monocytes # (Manual) Eosinophils # (Manual) Basophils # (Manual) Percent Retic PT 15.8 H INR 1.14 H Fibrinogen D-Dimer > 22831 H ABG pH POC ABG pCO2 POC ABG pO2 ABG pO2 ABG HCO3 ABG O2 Saturation ABG Base Excess ABG Hemoglobin ABG Oxyhemoglobin ABG Sodium ABG Potassium ABG Chloride ABG Glucose Oxyhemoglobin Carboxyhemoglobin Sodium Potassium Chloride Carbon Dioxide BUN Creatinine Glucose POC Glucose 117 H 112 H Hemoglobin A1c Calcium Phosphorus Magnesium AST ALT Alkaline Phosphatase Lactate Dehydrogenase C-Reactive Protein Total Protein Albumin Triglycerides Arterial Blood Glucose Arterial Blood Ionized Calcium Urine WBC (Auto) U Epithel Cells (Auto) Urine Creatinine Random Vancomycin Coronavirus (PCR) Crossmatch 03/22/21 03/22/21 03/23/21 21:25 22:57 04:30 WBC RBC Hgb Hct MCH MCHC RDW Plt Count Lymph % (Auto) [place] # (Auto) Eos # (Auto) Seg Neutrophils % Lymphocytes % (Manual) Eosinophils % (Manual) Basophils % (Manual) Nucleated RBC % Seg Neutrophils # Seg Neutrophils # Man Lymphocytes # (Manual) Monocytes # (Manual) Eosinophils # (Manual) Basophils # (Manual) Percent Retic PT INR Fibrinogen D-Dimer ABG pH 7.188 L* POC ABG pCO2 POC ABG pO2 ABG pO2 97.9 H ABG HCO3 ABG O2 Saturation ABG Base Excess -3.7 L ABG Hemoglobin 9.2 L ABG Oxyhemoglobin ABG Sodium ABG Potassium ABG Chloride ABG Glucose Oxyhemoglobin 94.4 L Carboxyhemoglobin Sodium Potassium Chloride Carbon Dioxide BUN Creatinine Glucose POC Glucose 106 H Hemoglobin A1c Calcium Phosphorus Magnesium AST ALT Alkaline Phosphatase Lactate Dehydrogenase C-Reactive Protein Total Protein Albumin Triglycerides 381 H Arterial Blood Glucose Arterial Blood Ionized Calcium Urine WBC (Auto) U Epithel Cells (Auto) Urine Creatinine Random Vancomycin Coronavirus (PCR) Crossmatch 03/23/21 03/23/21 03/23/21 04:30 04:30 05:37 WBC 20.1 H RBC 3.17 L Hgb 8.6 L Hct 27.2 L MCH 27 L MCHC RDW 17.4 H Plt Count 118 L Lymph % (Auto) [place] # (Auto) Eos # (Auto) Seg Neutrophils % Lymphocytes % (Manual) Eosinophils % (Manual) Basophils % (Manual) Nucleated RBC % Seg Neutrophils # Seg Neutrophils # Man Lymphocytes # (Manual) Monocytes # (Manual) Eosinophils # (Manual) Basophils # (Manual) Percent Retic PT INR Fibrinogen D-Dimer ABG pH POC ABG pCO2 POC ABG pO2 ABG pO2 ABG HCO3 ABG O2 Saturation ABG Base Excess ABG Hemoglobin ABG Oxyhemoglobin ABG Sodium ABG Potassium ABG Chloride ABG Glucose Oxyhemoglobin Carboxyhemoglobin Sodium Potassium 5.2 H Chloride 97.1 L Carbon Dioxide 21 L BUN 82 H Creatinine 9.1 H Glucose 109 H POC Glucose 130 H Hemoglobin A1c Calcium Phosphorus 10.80 H Magnesium 3.50 H AST ALT Alkaline Phosphatase Lactate Dehydrogenase C-Reactive Protein Total Protein Albumin Triglycerides Arterial Blood Glucose Arterial Blood Ionized Calcium Urine WBC (Auto) U Epithel Cells (Auto) Urine Creatinine Random Vancomycin Coronavirus (PCR) Crossmatch 03/23/21 03/23/21 03/23/21 08:44 11:30 16:09 WBC RBC Hgb Hct MCH MCHC RDW Plt Count Lymph % (Auto) [place] # (Auto) Eos # (Auto) Seg Neutrophils % Lymphocytes % (Manual) Eosinophils % (Manual) Basophils % (Manual) Nucleated RBC % Seg Neutrophils # Seg Neutrophils # Man Lymphocytes # (Manual) Monocytes # (Manual) Eosinophils # (Manual) Basophils # (Manual) Percent Retic PT INR Fibrinogen D-Dimer ABG pH 7.190 L POC ABG pCO2 57.9 H POC ABG pO2 79.2 L ABG pO2 ABG HCO3 ABG O2 Saturation ABG Base Excess ABG Hemoglobin 11.8 L ABG Oxyhemoglobin 92.3 L ABG Sodium 131.0 L ABG Potassium 5.0 H ABG Chloride ABG Glucose 122 H Oxyhemoglobin Carboxyhemoglobin 0.4 L Sodium Potassium Chloride Carbon Dioxide BUN Creatinine Glucose POC Glucose 129 H 148 H Hemoglobin A1c Calcium Phosphorus Magnesium AST ALT Alkaline Phosphatase Lactate Dehydrogenase C-Reactive Protein Total Protein Albumin Triglycerides Arterial Blood Glucose 122 H Arterial Blood Ionized Calcium 4.4 L Urine WBC (Auto) U Epithel Cells (Auto) Urine Creatinine Random Vancomycin Coronavirus (PCR) Crossmatch 03/23/21 03/24/21 03/24/21 21:00 03:35 04:00 WBC 17.8 H RBC 2.96 L Hgb 8.1 L Hct 25.0 L MCH 27 L MCHC RDW 17.7 H Plt Count 124 L Lymph % (Auto) [place] # (Auto) Eos # (Auto) Seg Neutrophils % Lymphocytes % (Manual) Eosinophils % (Manual) Basophils % (Manual) Nucleated RBC % Seg Neutrophils # Seg Neutrophils # Man Lymphocytes # (Manual) Monocytes # (Manual) Eosinophils # (Manual) Basophils # (Manual) Percent Retic PT INR Fibrinogen D-Dimer ABG pH 7.223 L POC ABG pCO2 50.3 H POC ABG pO2 114.4 H ABG pO2 ABG HCO3 ABG O2 Saturation ABG Base Excess ABG Hemoglobin 8.8 L ABG Oxyhemoglobin ABG Sodium 130.4 L ABG Potassium 5.1 H ABG Chloride ABG Glucose 126 H Oxyhemoglobin Carboxyhemoglobin 0.2 L Sodium Potassium Chloride Carbon Dioxide BUN Creatinine Glucose POC Glucose 148 H Hemoglobin A1c Calcium Phosphorus Magnesium AST ALT Alkaline Phosphatase Lactate Dehydrogenase C-Reactive Protein Total Protein Albumin Triglycerides Arterial Blood Glucose 126 H Arterial Blood Ionized Calcium 4.4 L Urine WBC (Auto) U Epithel Cells (Auto) Urine Creatinine Random Vancomycin Coronavirus (PCR) Crossmatch 03/24/21 03/24/21 03/24/21 04:00 06:49 12:29 WBC RBC Hgb Hct MCH MCHC RDW Plt Count Lymph % (Auto) [place] # (Auto) Eos # (Auto) Seg Neutrophils % Lymphocytes % (Manual) Eosinophils % (Manual) Basophils % (Manual) Nucleated RBC % Seg Neutrophils # Seg Neutrophils # Man Lymphocytes # (Manual) Monocytes # (Manual) Eosinophils # (Manual) Basophils # (Manual) Percent Retic PT INR Fibrinogen D-Dimer ABG pH POC ABG pCO2 POC ABG pO2 ABG pO2 ABG HCO3 ABG O2 Saturation ABG Base Excess ABG Hemoglobin ABG Oxyhemoglobin ABG Sodium ABG Potassium ABG Chloride ABG Glucose Oxyhemoglobin Carboxyhemoglobin Sodium Potassium Chloride 95.6 L Carbon Dioxide 20 L BUN 108 H Creatinine 10.8 H Glucose 155 H POC Glucose 136 H 142 H Hemoglobin A1c Calcium Phosphorus Magnesium AST ALT Alkaline Phosphatase Lactate Dehydrogenase C-Reactive Protein Total Protein Albumin Triglycerides Arterial Blood Glucose Arterial Blood Ionized Calcium Urine WBC (Auto) U Epithel Cells (Auto) Urine Creatinine Random Vancomycin Coronavirus (PCR) Crossmatch 11/03/0403/25/21 03/25/21 21:35 00:15 05:51 WBC RBC Hgb Hct MCH MCHC RDW Plt Count Lymph % (Auto) [place] # (Auto) Eos # (Auto) Seg Neutrophils % Lymphocytes % (Manual) Eosinophils % (Manual) Basophils % (Manual) Nucleated RBC % Seg Neutrophils # Seg Neutrophils # Man Lymphocytes # (Manual) Monocytes # (Manual) Eosinophils # (Manual) Basophils # (Manual) Percent Retic PT INR Fibrinogen D-Dimer ABG pH 7.241 L POC ABG pCO2 POC ABG pO2 ABG pO2 72.4 L ABG HCO3 ABG O2 Saturation 90.3 L ABG Base Excess ABG Hemoglobin 7.9 L ABG Oxyhemoglobin ABG Sodium ABG Potassium ABG Chloride ABG Glucose Oxyhemoglobin 88.4 L Carboxyhemoglobin Sodium Potassium Chloride Carbon Dioxide BUN Creatinine Glucose POC Glucose 110 H 121 H Hemoglobin A1c Calcium Phosphorus Magnesium AST ALT Alkaline Phosphatase Lactate Dehydrogenase C-Reactive Protein Total Protein Albumin Triglycerides Arterial Blood Glucose Arterial Blood Ionized Calcium Urine WBC (Auto) U Epithel Cells (Auto) Urine Creatinine Random Vancomycin Coronavirus (PCR) Crossmatch 03/25/21 03/25/21 03/25/21 05:54 05:54 12:21 WBC 12.4 H RBC 2.52 L Hgb 6.9 L Hct 21.1 L MCH MCHC RDW 17.4 H Plt Count 102 L Lymph % (Auto) [place] # (Auto) Eos # (Auto) Seg Neutrophils % Lymphocytes % (Manual) Eosinophils % (Manual) Basophils % (Manual) Nucleated RBC % Seg Neutrophils # Seg Neutrophils # Man Lymphocytes # (Manual) Monocytes # (Manual) Eosinophils # (Manual) Basophils # (Manual) Percent Retic PT INR Fibrinogen D-Dimer ABG pH POC ABG pCO2 POC ABG pO2 ABG pO2 ABG HCO3 ABG O2 Saturation ABG Base Excess ABG Hemoglobin ABG Oxyhemoglobin ABG Sodium ABG Potassium ABG Chloride ABG Glucose Oxyhemoglobin Carboxyhemoglobin Sodium Potassium Chloride 96.7 L Carbon Dioxide BUN 81 H Creatinine 8.1 H Glucose 116 H POC Glucose 138 H Hemoglobin A1c Calcium 8.2 L Phosphorus Magnesium AST ALT Alkaline Phosphatase Lactate Dehydrogenase C-Reactive Protein Total Protein Albumin Triglycerides Arterial Blood Glucose Arterial Blood Ionized Calcium Urine WBC (Auto) U Epithel Cells (Auto) Urine Creatinine Random Vancomycin Coronavirus (PCR) Crossmatch 11/04/0403/25/21 03/25/21 13:45 17:32 21:30 WBC RBC Hgb Hct MCH MCHC RDW Plt Count Lymph % (Auto) [place] # (Auto) Eos # (Auto) Seg Neutrophils % Lymphocytes % (Manual) Eosinophils % (Manual) Basophils % (Manual) Nucleated RBC % Seg Neutrophils # Seg Neutrophils # Man Lymphocytes # (Manual) Monocytes # (Manual) Eosinophils # (Manual) Basophils # (Manual) Percent Retic PT INR Fibrinogen D-Dimer ABG pH POC ABG pCO2 POC ABG pO2 ABG pO2 70.2 L ABG HCO3 ABG O2 Saturation ABG Base Excess ABG Hemoglobin 6.8 L ABG Oxyhemoglobin ABG Sodium ABG Potassium ABG Chloride ABG Glucose Oxyhemoglobin 94.5 L Carboxyhemoglobin Sodium Potassium Chloride Carbon Dioxide BUN Creatinine Glucose POC Glucose 110 H Hemoglobin A1c Calcium Phosphorus Magnesium AST ALT Alkaline Phosphatase Lactate Dehydrogenase C-Reactive Protein Total Protein Albumin Triglycerides Arterial Blood Glucose Arterial Blood Ionized Calcium Urine WBC (Auto) U Epithel Cells (Auto) Urine Creatinine Random Vancomycin Coronavirus (PCR) Crossmatch See Detail 03/25/21 03/25/21 03/26/21 23:29 Unknown 05:15 WBC 12.4 H 14.0 H RBC 2.49 L 2.83 L Hgb 6.8 L 7.6 L Hct 20.9 L 23.6 L MCH 27 L 27 L MCHC RDW 18.0 H 17.1 H Plt Count 107 L 116 L Lymph % (Auto) [place] # (Auto) Eos # (Auto) Seg Neutrophils % Lymphocytes % (Manual) Eosinophils % (Manual) Basophils % (Manual) Nucleated RBC % Seg Neutrophils # Seg Neutrophils # Man Lymphocytes # (Manual) Monocytes # (Manual) Eosinophils # (Manual) Basophils # (Manual) Percent Retic PT INR Fibrinogen D-Dimer ABG pH POC ABG pCO2 POC ABG pO2 ABG pO2 ABG HCO3 ABG O2 Saturation ABG Base Excess ABG Hemoglobin ABG Oxyhemoglobin ABG Sodium ABG Potassium ABG Chloride ABG Glucose Oxyhemoglobin Carboxyhemoglobin Sodium Potassium Chloride Carbon Dioxide BUN Creatinine Glucose POC Glucose 113 H Hemoglobin A1c Calcium Phosphorus Magnesium AST ALT Alkaline Phosphatase Lactate Dehydrogenase C-Reactive Protein Total Protein Albumin Triglycerides Arterial Blood Glucose Arterial Blood Ionized Calcium Urine WBC (Auto) U Epithel Cells (Auto) Urine Creatinine Random Vancomycin Coronavirus (PCR) Crossmatch 11/05/0403/26/21 03/26/21 05:15 05:35 09:50 WBC RBC Hgb Hct MCH MCHC RDW Plt Count Lymph % (Auto) [place] # (Auto) Eos # (Auto) Seg Neutrophils % Lymphocytes % (Manual) Eosinophils % (Manual) Basophils % (Manual) Nucleated RBC % Seg Neutrophils # Seg Neutrophils # Man Lymphocytes # (Manual) Monocytes # (Manual) Eosinophils # (Manual) Basophils # (Manual) Percent Retic PT INR Fibrinogen D-Dimer ABG pH POC ABG pCO2 POC ABG pO2 ABG pO2 79.9 L ABG HCO3 ABG O2 Saturation ABG Base Excess ABG Hemoglobin 7.1 L ABG Oxyhemoglobin ABG Sodium ABG Potassium ABG Chloride ABG Glucose Oxyhemoglobin 94.9 L Carboxyhemoglobin Sodium Potassium 3.4 L Chloride Carbon Dioxide BUN 70 H Creatinine 7.3 H Glucose 142 H POC Glucose 130 H Hemoglobin A1c Calcium 8.2 L Phosphorus Magnesium AST ALT Alkaline Phosphatase Lactate Dehydrogenase C-Reactive Protein Total Protein Albumin Triglycerides 254 H Arterial Blood Glucose Arterial Blood Ionized Calcium Urine WBC (Auto) U Epithel Cells (Auto) Urine Creatinine Random Vancomycin Coronavirus (PCR) Crossmatch 03/26/21 03/26/21 03/26/21 11:45 16:36 23:33 WBC RBC Hgb Hct MCH MCHC RDW Plt Count Lymph % (Auto) [place] # (Auto) Eos # (Auto) Seg Neutrophils % Lymphocytes % (Manual) Eosinophils % (Manual) Basophils % (Manual) Nucleated RBC % Seg Neutrophils # Seg Neutrophils # Man Lymphocytes # (Manual) Monocytes # (Manual) Eosinophils # (Manual) Basophils # (Manual) Percent Retic PT INR Fibrinogen D-Dimer ABG pH POC ABG pCO2 POC ABG pO2 ABG pO2 ABG HCO3 ABG O2 Saturation ABG Base Excess ABG Hemoglobin ABG Oxyhemoglobin ABG Sodium ABG Potassium ABG Chloride ABG Glucose Oxyhemoglobin Carboxyhemoglobin Sodium Potassium Chloride Carbon Dioxide BUN Creatinine Glucose POC Glucose 123 H 121 H 120 H Hemoglobin A1c Calcium Phosphorus Magnesium AST ALT Alkaline Phosphatase Lactate Dehydrogenase C-Reactive Protein Total Protein Albumin Triglycerides Arterial Blood Glucose Arterial Blood Ionized Calcium Urine WBC (Auto) U Epithel Cells (Auto) Urine Creatinine Random Vancomycin Coronavirus (PCR) Crossmatch 03/27/21 03/27/21 03/27/21 03:20 04:14 08:20 WBC 13.2 H RBC 2.82 L Hgb 7.9 L Hct 23.5 L MCH MCHC RDW 17.3 H Plt Count 125 L Lymph % (Auto) [place] # (Auto) Eos # (Auto) Seg Neutrophils % Lymphocytes % (Manual) Eosinophils % (Manual) Basophils % (Manual) Nucleated RBC % Seg Neutrophils # Seg Neutrophils # Man Lymphocytes # (Manual) Monocytes # (Manual) Eosinophils # (Manual) Basophils # (Manual) Percent Retic PT INR Fibrinogen D-Dimer ABG pH POC ABG pCO2 50.0 H POC ABG pO2 58.3 L ABG pO2 ABG HCO3 ABG O2 Saturation ABG Base Excess ABG Hemoglobin 11.3 L ABG Oxyhemoglobin 88.5 L ABG Sodium ABG Potassium ABG Chloride ABG Glucose 132 H Oxyhemoglobin Carboxyhemoglobin 0.2 L Sodium Potassium Chloride Carbon Dioxide BUN Creatinine Glucose POC Glucose 119 H Hemoglobin A1c Calcium Phosphorus Magnesium AST ALT Alkaline Phosphatase Lactate Dehydrogenase C-Reactive Protein Total Protein Albumin Triglycerides Arterial Blood Glucose 132 H Arterial Blood Ionized Calcium Urine WBC (Auto) U Epithel Cells (Auto) Urine Creatinine Random Vancomycin Coronavirus (PCR) Crossmatch 03/27/21 03/27/21 03/27/21 08:20 11:39 17:32 WBC RBC Hgb Hct MCH MCHC RDW Plt Count Lymph % (Auto) [place] # (Auto) Eos # (Auto) Seg Neutrophils % Lymphocytes % (Manual) Eosinophils % (Manual) Basophils % (Manual) Nucleated RBC % Seg Neutrophils # Seg Neutrophils # Man Lymphocytes # (Manual) Monocytes # (Manual) Eosinophils # (Manual) Basophils # (Manual) Percent Retic PT INR Fibrinogen D-Dimer ABG pH POC ABG pCO2 POC ABG pO2 ABG pO2 ABG HCO3 ABG O2 Saturation ABG Base Excess ABG Hemoglobin ABG Oxyhemoglobin ABG Sodium ABG Potassium ABG Chloride ABG Glucose Oxyhemoglobin Carboxyhemoglobin Sodium Potassium Chloride Carbon Dioxide BUN 57 H Creatinine 6.8 H Glucose 131 H POC Glucose 121 H 126 H Hemoglobin A1c Calcium Phosphorus Magnesium AST ALT Alkaline Phosphatase Lactate Dehydrogenase C-Reactive Protein Total Protein Albumin Triglycerides Arterial Blood Glucose Arterial Blood Ionized Calcium Urine WBC (Auto) U Epithel Cells (Auto) Urine Creatinine Random Vancomycin Coronavirus (PCR) Crossmatch 03/28/21 03/28/21 03/28/21 00:10 04:45 05:25 WBC RBC Hgb Hct MCH MCHC RDW Plt Count Lymph % (Auto) [place] # (Auto) Eos # (Auto) Seg Neutrophils % Lymphocytes % (Manual) Eosinophils % (Manual) Basophils % (Manual) Nucleated RBC % Seg Neutrophils # Seg Neutrophils # Man Lymphocytes # (Manual) Monocytes # (Manual) Eosinophils # (Manual) Basophils # (Manual) Percent Retic PT INR Fibrinogen D-Dimer ABG pH POC ABG pCO2 POC ABG pO2 ABG pO2 57.6 L ABG HCO3 27.1 H ABG O2 Saturation 88.5 L ABG Base Excess ABG Hemoglobin ABG Oxyhemoglobin ABG Sodium ABG Potassium ABG Chloride ABG Glucose Oxyhemoglobin 86.6 L Carboxyhemoglobin Sodium Potassium Chloride Carbon Dioxide BUN Creatinine Glucose POC Glucose 113 H 121 H Hemoglobin A1c Calcium Phosphorus Magnesium AST ALT Alkaline Phosphatase Lactate Dehydrogenase C-Reactive Protein Total Protein Albumin Triglycerides Arterial Blood Glucose Arterial Blood Ionized Calcium Urine WBC (Auto) U Epithel Cells (Auto) Urine Creatinine Random Vancomycin Coronavirus (PCR) Crossmatch 03/28/21 03/28/21 03/28/21 09:37 09:37 11:48 WBC 16.3 H RBC 2.92 L Hgb 8.2 L Hct 24.8 L MCH MCHC RDW 17.5 H Plt Count Lymph % (Auto) 10.7 L [place] # (Auto) 0.9 H Eos # (Auto) 0.6 H Seg Neutrophils % 80.0 H Lymphocytes % (Manual) Eosinophils % (Manual) Basophils % (Manual) Nucleated RBC % Seg Neutrophils # 13.0 H Seg Neutrophils # Man Lymphocytes # (Manual) Monocytes # (Manual) Eosinophils # (Manual) Basophils # (Manual) Percent Retic PT INR Fibrinogen D-Dimer ABG pH POC ABG pCO2 POC ABG pO2 ABG pO2 ABG HCO3 ABG O2 Saturation ABG Base Excess ABG Hemoglobin ABG Oxyhemoglobin ABG Sodium ABG Potassium ABG Chloride ABG Glucose Oxyhemoglobin Carboxyhemoglobin Sodium Potassium Chloride Carbon Dioxide BUN 61 H Creatinine 7.7 H Glucose 148 H POC Glucose 123 H Hemoglobin A1c Calcium Phosphorus Magnesium AST ALT Alkaline Phosphatase Lactate Dehydrogenase C-Reactive Protein Total Protein Albumin Triglycerides Arterial Blood Glucose Arterial Blood Ionized Calcium Urine WBC (Auto) U Epithel Cells (Auto) Urine Creatinine Random Vancomycin Coronavirus (PCR) Crossmatch 03/28/21 03/28/21 03/28/21 17:33 21:08 23:38 WBC RBC Hgb Hct MCH MCHC RDW Plt Count Lymph % (Auto) [place] # (Auto) Eos # (Auto) Seg Neutrophils % Lymphocytes % (Manual) Eosinophils % (Manual) Basophils % (Manual) Nucleated RBC % Seg Neutrophils # Seg Neutrophils # Man Lymphocytes # (Manual) Monocytes # (Manual) Eosinophils # (Manual) Basophils # (Manual) Percent Retic PT INR Fibrinogen D-Dimer ABG pH POC ABG pCO2 POC ABG pO2 80.5 L ABG pO2 ABG HCO3 ABG O2 Saturation ABG Base Excess ABG Hemoglobin 9.5 L ABG Oxyhemoglobin ABG Sodium 133.3 L ABG Potassium ABG Chloride ABG Glucose 134 H Oxyhemoglobin Carboxyhemoglobin 0.3 L Sodium Potassium Chloride Carbon Dioxide BUN Creatinine Glucose POC Glucose 128 H 112 H Hemoglobin A1c Calcium Phosphorus Magnesium AST ALT Alkaline Phosphatase Lactate Dehydrogenase C-Reactive Protein Total Protein Albumin Triglycerides Arterial Blood Glucose 134 H Arterial Blood Ionized Calcium Urine WBC (Auto) U Epithel Cells (Auto) Urine Creatinine Random Vancomycin Coronavirus (PCR) Crossmatch 03/29/21 03/29/21 03/29/21 04:45 04:45 04:45 WBC 17.5 H RBC 3.15 L Hgb 8.8 L Hct 27.2 L MCH MCHC RDW 17.9 H Plt Count 132 L Lymph % (Auto) [place] # (Auto) Eos # (Auto) Seg Neutrophils % Lymphocytes % (Manual) Eosinophils % (Manual) Basophils % (Manual) Nucleated RBC % Seg Neutrophils # Seg Neutrophils # Man Lymphocytes # (Manual) Monocytes # (Manual) Eosinophils # (Manual) Basophils # (Manual) Percent Retic PT INR Fibrinogen D-Dimer ABG pH POC ABG pCO2 POC ABG pO2 ABG pO2 ABG HCO3 ABG O2 Saturation ABG Base Excess ABG Hemoglobin ABG Oxyhemoglobin ABG Sodium ABG Potassium ABG Chloride ABG Glucose Oxyhemoglobin Carboxyhemoglobin Sodium Potassium Chloride 97.7 L Carbon Dioxide 21 L BUN 78 H Creatinine 9.5 H Glucose 132 H POC Glucose Hemoglobin A1c Calcium Phosphorus Magnesium AST ALT Alkaline Phosphatase Lactate Dehydrogenase C-Reactive Protein Total Protein Albumin 2.2 L Triglycerides 385 H Arterial Blood Glucose Arterial Blood Ionized Calcium Urine WBC (Auto) U Epithel Cells (Auto) Urine Creatinine Random Vancomycin Coronavirus (PCR) Crossmatch 03/29/21 03/29/21 03/29/21 11:35 16:50 21:06 WBC RBC Hgb Hct MCH MCHC RDW Plt Count Lymph % (Auto) [place] # (Auto) Eos # (Auto) Seg Neutrophils % Lymphocytes % (Manual) Eosinophils % (Manual) Basophils % (Manual) Nucleated RBC % Seg Neutrophils # Seg Neutrophils # Man Lymphocytes # (Manual) Monocytes # (Manual) Eosinophils # (Manual) Basophils # (Manual) Percent Retic PT INR Fibrinogen D-Dimer ABG pH POC ABG pCO2 POC ABG pO2 ABG pO2 64.9 L ABG HCO3 ABG O2 Saturation ABG Base Excess -5.2 L ABG Hemoglobin ABG Oxyhemoglobin ABG Sodium ABG Potassium ABG Chloride ABG Glucose Oxyhemoglobin 85.1 L Carboxyhemoglobin Sodium Potassium Chloride Carbon Dioxide BUN Creatinine Glucose POC Glucose 148 H 133 H Hemoglobin A1c Calcium Phosphorus Magnesium AST ALT Alkaline Phosphatase Lactate Dehydrogenase C-Reactive Protein Total Protein Albumin Triglycerides Arterial Blood Glucose Arterial Blood Ionized Calcium Urine WBC (Auto) U Epithel Cells (Auto) Urine Creatinine Random Vancomycin Coronavirus (PCR) Crossmatch 03/29/21 03/30/21 03/30/21 Unknown 00:13 04:00 WBC 15.7 H RBC 3.18 L Hgb 8.6 L Hct 27.3 L MCH 27 L MCHC RDW 18.0 H Plt Count 86 L Lymph % (Auto) [place] # (Auto) Eos # (Auto) Seg Neutrophils % Lymphocytes % (Manual) Eosinophils % (Manual) Basophils % (Manual) Nucleated RBC % Seg Neutrophils # Seg Neutrophils # Man Lymphocytes # (Manual) Monocytes # (Manual) Eosinophils # (Manual) Basophils # (Manual) Percent Retic PT INR Fibrinogen D-Dimer ABG pH 7.258 L POC ABG pCO2 POC ABG pO2 ABG pO2 ABG HCO3 ABG O2 Saturation ABG Base Excess -4.9 L ABG Hemoglobin 8.8 L ABG Oxyhemoglobin ABG Sodium ABG Potassium ABG Chloride ABG Glucose Oxyhemoglobin 93.9 L Carboxyhemoglobin Sodium Potassium Chloride Carbon Dioxide BUN Creatinine Glucose POC Glucose 129 H Hemoglobin A1c Calcium Phosphorus Magnesium AST ALT Alkaline Phosphatase Lactate Dehydrogenase C-Reactive Protein Total Protein Albumin Triglycerides Arterial Blood Glucose Arterial Blood Ionized Calcium Urine WBC (Auto) U Epithel Cells (Auto) Urine Creatinine Random Vancomycin Coronavirus (PCR) Crossmatch 03/30/21 03/30/21 03/30/21 04:00 04:00 06:02 WBC RBC Hgb Hct MCH MCHC RDW Plt Count Lymph % (Auto) [place] # (Auto) Eos # (Auto) Seg Neutrophils % Lymphocytes % (Manual) Eosinophils % (Manual) Basophils % (Manual) Nucleated RBC % Seg Neutrophils # Seg Neutrophils # Man Lymphocytes # (Manual) Monocytes # (Manual) Eosinophils # (Manual) Basophils # (Manual) Percent Retic PT INR Fibrinogen D-Dimer 2607.12 H ABG pH POC ABG pCO2 POC ABG pO2 ABG pO2 ABG HCO3 ABG O2 Saturation ABG Base Excess ABG Hemoglobin ABG Oxyhemoglobin ABG Sodium ABG Potassium ABG Chloride ABG Glucose Oxyhemoglobin Carboxyhemoglobin Sodium 133 L Potassium 5.2 H D Chloride 91.5 L Carbon Dioxide 18 L BUN 101 H Creatinine 10.6 H Glucose 149 H POC Glucose 130 H Hemoglobin A1c Calcium Phosphorus 10.30 H Magnesium AST ALT Alkaline Phosphatase Lactate Dehydrogenase C-Reactive Protein 21.50 H Total Protein Albumin Triglycerides Arterial Blood Glucose Arterial Blood Ionized Calcium Urine WBC (Auto) U Epithel Cells (Auto) Urine Creatinine Random Vancomycin Coronavirus (PCR) Crossmatch 03/30/21 03/30/21 03/30/21 10:36 11:48 17:20 WBC RBC Hgb Hct MCH MCHC RDW Plt Count Lymph % (Auto) [place] # (Auto) Eos # (Auto) Seg Neutrophils % Lymphocytes % (Manual) Eosinophils % (Manual) Basophils % (Manual) Nucleated RBC % Seg Neutrophils # Seg Neutrophils # Man Lymphocytes # (Manual) Monocytes # (Manual) Eosinophils # (Manual) Basophils # (Manual) Percent Retic PT INR Fibrinogen D-Dimer ABG pH 7.224 L POC ABG pCO2 49.1 H POC ABG pO2 61.5 L ABG pO2 ABG HCO3 ABG O2 Saturation ABG Base Excess ABG Hemoglobin 10.2 L ABG Oxyhemoglobin 86.2 L ABG Sodium 129.6 L ABG Potassium 5.4 H ABG Chloride 96.0 L ABG Glucose 161 H Oxyhemoglobin Carboxyhemoglobin Sodium Potassium Chloride Carbon Dioxide BUN Creatinine Glucose POC Glucose 163 H 130 H Hemoglobin A1c Calcium Phosphorus Magnesium AST ALT Alkaline Phosphatase Lactate Dehydrogenase C-Reactive Protein Total Protein Albumin Triglycerides Arterial Blood Glucose 161 H Arterial Blood Ionized Calcium 4.4 L Urine WBC (Auto) U Epithel Cells (Auto) Urine Creatinine Random Vancomycin Coronavirus (PCR) Crossmatch 11/16/21 11/17/21 11/17/21 23:49 00:28 05:20 WBC 17.3 H RBC 2.99 L Hgb 8.2 L Hct 25.3 L MCH 27 L MCHC RDW 18.3 H Plt Count 126 L Lymph % (Auto) [place] # (Auto) Eos # (Auto) Seg Neutrophils % Lymphocytes % (Manual) Eosinophils % (Manual) Basophils % (Manual) Nucleated RBC % Seg Neutrophils # Seg Neutrophils # Man Lymphocytes # (Manual) Monocytes # (Manual) Eosinophils # (Manual) Basophils # (Manual) Percent Retic PT INR Fibrinogen D-Dimer ABG pH 7.249 L POC ABG pCO2 POC ABG pO2 77.7 L ABG pO2 ABG HCO3 ABG O2 Saturation ABG Base Excess ABG Hemoglobin 9.0 L ABG Oxyhemoglobin 92.9 L ABG Sodium 130.4 L ABG Potassium 4.7 H ABG Chloride ABG Glucose 166 H Oxyhemoglobin Carboxyhemoglobin 0.4 L Sodium Potassium Chloride Carbon Dioxide BUN Creatinine Glucose POC Glucose 143 H Hemoglobin A1c Calcium Phosphorus Magnesium AST ALT Alkaline Phosphatase Lactate Dehydrogenase C-Reactive Protein Total Protein Albumin Triglycerides Arterial Blood Glucose 166 H Arterial Blood Ionized Calcium 4.3 L Urine WBC (Auto) U Epithel Cells (Auto) Urine Creatinine Random Vancomycin Coronavirus (PCR) Crossmatch 03/31/21 03/31/21 03/31/21 05:20 06:18 09:44 WBC RBC Hgb Hct MCH MCHC RDW Plt Count Lymph % (Auto) [place] # (Auto) Eos # (Auto) Seg Neutrophils % Lymphocytes % (Manual) Eosinophils % (Manual) Basophils % (Manual) Nucleated RBC % Seg Neutrophils # Seg Neutrophils # Man Lymphocytes # (Manual) Monocytes # (Manual) Eosinophils # (Manual) Basophils # (Manual) Percent Retic PT INR Fibrinogen D-Dimer ABG pH 7.247 L POC ABG pCO2 POC ABG pO2 ABG pO2 ABG HCO3 ABG O2 Saturation 94.4 L ABG Base Excess -5.1 L ABG Hemoglobin 8.2 L ABG Oxyhemoglobin ABG Sodium ABG Potassium ABG Chloride ABG Glucose Oxyhemoglobin 92.4 L Carboxyhemoglobin Sodium Potassium Chloride Carbon Dioxide BUN Creatinine Glucose POC Glucose 155 H Hemoglobin A1c Calcium Phosphorus 8.20 H D Magnesium AST ALT Alkaline Phosphatase Lactate Dehydrogenase C-Reactive Protein Total Protein Albumin Triglycerides Arterial Blood Glucose Arterial Blood Ionized Calcium Urine WBC (Auto) U Epithel Cells (Auto) Urine Creatinine Random Vancomycin Coronavirus (PCR) Crossmatch 03/31/21 03/31/21 03/31/21 09:49 09:55 09:55 WBC RBC Hgb Hct MCH MCHC RDW Plt Count Lymph % (Auto) [place] # (Auto) Eos # (Auto) Seg Neutrophils % Lymphocytes % (Manual) Eosinophils % (Manual) Basophils % (Manual) Nucleated RBC % Seg Neutrophils # Seg Neutrophils # Man Lymphocytes # (Manual) Monocytes # (Manual) Eosinophils # (Manual) Basophils # (Manual) Percent Retic 4.52 H PT 16.5 H INR 1.20 H Fibrinogen D-Dimer ABG pH POC ABG pCO2 POC ABG pO2 ABG pO2 ABG HCO3 ABG O2 Saturation ABG Base Excess ABG Hemoglobin ABG Oxyhemoglobin ABG Sodium ABG Potassium ABG Chloride ABG Glucose Oxyhemoglobin Carboxyhemoglobin Sodium 133 L Potassium Chloride 92.8 L Carbon Dioxide 20 L BUN 87 H Creatinine 8.9 H Glucose 177 H POC Glucose Hemoglobin A1c Calcium 8.2 L Phosphorus Magnesium AST 169 H ALT Alkaline Phosphatase 187 H Lactate Dehydrogenase C-Reactive Protein Total Protein Albumin 2.3 L Triglycerides Arterial Blood Glucose Arterial Blood Ionized Calcium Urine WBC (Auto) U Epithel Cells (Auto) Urine Creatinine Random Vancomycin Coronavirus (PCR) Crossmatch 03/31/21 03/31/21 03/31/21 09:55 09:55 11:25 WBC RBC Hgb Hct MCH MCHC RDW Plt Count Lymph % (Auto) [place] # (Auto) Eos # (Auto) Seg Neutrophils % Lymphocytes % (Manual) Eosinophils % (Manual) Basophils % (Manual) Nucleated RBC % Seg Neutrophils # Seg Neutrophils # Man Lymphocytes # (Manual) Monocytes # (Manual) Eosinophils # (Manual) Basophils # (Manual) Percent Retic PT INR Fibrinogen 491 H D-Dimer ABG pH POC ABG pCO2 POC ABG pO2 ABG pO2 ABG HCO3 ABG O2 Saturation ABG Base Excess ABG Hemoglobin ABG Oxyhemoglobin ABG Sodium ABG Potassium ABG Chloride ABG Glucose Oxyhemoglobin Carboxyhemoglobin Sodium Potassium Chloride Carbon Dioxide BUN Creatinine Glucose POC Glucose 178 H Hemoglobin A1c Calcium Phosphorus Magnesium AST ALT Alkaline Phosphatase Lactate Dehydrogenase 509 H C-Reactive Protein Total Protein Albumin Triglycerides Arterial Blood Glucose Arterial Blood Ionized Calcium Urine WBC (Auto) U Epithel Cells (Auto) Urine Creatinine Random Vancomycin Coronavirus (PCR) Crossmatch 03/31/21 03/31/21 03/31/21 12:30 17:40 21:00 WBC RBC Hgb Hct MCH MCHC RDW Plt Count Lymph % (Auto) [place] # (Auto) Eos # (Auto) Seg Neutrophils % Lymphocytes % (Manual) Eosinophils % (Manual) Basophils % (Manual) Nucleated RBC % Seg Neutrophils # Seg Neutrophils # Man Lymphocytes # (Manual) Monocytes # (Manual) Eosinophils # (Manual) Basophils # (Manual) Percent Retic PT INR Fibrinogen D-Dimer ABG pH 7.235 L 7.216 L POC ABG pCO2 POC ABG pO2 ABG pO2 76.8 L 113.9 H ABG HCO3 ABG O2 Saturation 93.2 L ABG Base Excess -5.3 L -7.3 L ABG Hemoglobin 6.3 L 8.0 L ABG Oxyhemoglobin ABG Sodium ABG Potassium ABG Chloride ABG Glucose Oxyhemoglobin 91.1 L Carboxyhemoglobin Sodium Potassium Chloride Carbon Dioxide BUN Creatinine Glucose POC Glucose 245 H Hemoglobin A1c Calcium Phosphorus Magnesium AST ALT Alkaline Phosphatase Lactate Dehydrogenase C-Reactive Protein Total Protein Albumin Triglycerides Arterial Blood Glucose Arterial Blood Ionized Calcium Urine WBC (Auto) U Epithel Cells (Auto) Urine Creatinine Random Vancomycin Coronavirus (PCR) Crossmatch 04/01/21 04/01/21 04/01/21 00:11 05:09 08:25 WBC RBC Hgb Hct MCH MCHC RDW Plt Count Lymph % (Auto) [place] # (Auto) Eos # (Auto) Seg Neutrophils % Lymphocytes % (Manual) Eosinophils % (Manual) Basophils % (Manual) Nucleated RBC % Seg Neutrophils # Seg Neutrophils # Man Lymphocytes # (Manual) Monocytes # (Manual) Eosinophils # (Manual) Basophils # (Manual) Percent Retic PT INR Fibrinogen D-Dimer ABG pH 7.225 L POC ABG pCO2 POC ABG pO2 ABG pO2 76.4 L ABG HCO3 ABG O2 Saturation 92.2 L ABG Base Excess -7.6 L ABG Hemoglobin 7.3 L ABG Oxyhemoglobin ABG Sodium ABG Potassium ABG Chloride ABG Glucose Oxyhemoglobin 90.2 L Carboxyhemoglobin Sodium Potassium Chloride Carbon Dioxide BUN Creatinine Glucose POC Glucose 209 H 173 H Hemoglobin A1c Calcium Phosphorus Magnesium AST ALT Alkaline Phosphatase Lactate Dehydrogenase C-Reactive Protein Total Protein Albumin Triglycerides Arterial Blood Glucose Arterial Blood Ionized Calcium Urine WBC (Auto) U Epithel Cells (Auto) Urine Creatinine Random Vancomycin Coronavirus (PCR) Crossmatch 04/01/21 04/01/21 04/01/21 12:01 12:05 17:55 WBC RBC Hgb Hct MCH MCHC RDW Plt Count Lymph % (Auto) [place] # (Auto) Eos # (Auto) Seg Neutrophils % Lymphocytes % (Manual) Eosinophils % (Manual) Basophils % (Manual) Nucleated RBC % Seg Neutrophils # Seg Neutrophils # Man Lymphocytes # (Manual) Monocytes # (Manual) Eosinophils # (Manual) Basophils # (Manual) Percent Retic PT INR Fibrinogen D-Dimer ABG pH POC ABG pCO2 POC ABG pO2 ABG pO2 ABG HCO3 ABG O2 Saturation ABG Base Excess ABG Hemoglobin ABG Oxyhemoglobin ABG Sodium ABG Potassium ABG Chloride ABG Glucose Oxyhemoglobin Carboxyhemoglobin Sodium Potassium 5.9 H Chloride Carbon Dioxide BUN Creatinine Glucose POC Glucose 202 H 217 H Hemoglobin A1c Calcium Phosphorus Magnesium AST ALT Alkaline Phosphatase Lactate Dehydrogenase C-Reactive Protein Total Protein Albumin Triglycerides Arterial Blood Glucose Arterial Blood Ionized Calcium Urine WBC (Auto) U Epithel Cells (Auto) Urine Creatinine Random Vancomycin Coronavirus (PCR) Crossmatch 04/01/21 04/01/21 04/01/21 Unknown Unknown 23:59 WBC 27.2 H RBC 3.08 L Hgb 8.4 L Hct 26.0 L MCH 27 L MCHC RDW 18.5 H Plt Count Lymph % (Auto) [place] # (Auto) Eos # (Auto) Seg Neutrophils % Lymphocytes % (Manual) Eosinophils % (Manual) Basophils % (Manual) Nucleated RBC % Seg Neutrophils # Seg Neutrophils # Man Lymphocytes # (Manual) Monocytes # (Manual) Eosinophils # (Manual) Basophils # (Manual) Percent Retic PT INR Fibrinogen D-Dimer ABG pH POC ABG pCO2 POC ABG pO2 ABG pO2 ABG HCO3 ABG O2 Saturation ABG Base Excess ABG Hemoglobin ABG Oxyhemoglobin ABG Sodium ABG Potassium ABG Chloride ABG Glucose Oxyhemoglobin Carboxyhemoglobin Sodium 132 L Potassium 6.6 H* D Chloride 91.3 L Carbon Dioxide 17 L BUN 104 H Creatinine 9.3 H Glucose 199 H POC Glucose 172 H Hemoglobin A1c Calcium 8.3 L Phosphorus Magnesium AST 236 H ALT 93 H Alkaline Phosphatase 191 H Lactate Dehydrogenase C-Reactive Protein Total Protein Albumin 2.4 L Triglycerides Arterial Blood Glucose Arterial Blood Ionized Calcium Urine WBC (Auto) U Epithel Cells (Auto) Urine Creatinine Random Vancomycin Coronavirus (PCR) Crossmatch 04/02/21 04/02/21 04/02/21 04:00 04:00 05:00 WBC 31.0 H RBC 2.93 L Hgb 8.0 L Hct 24.7 L MCH 27 L MCHC RDW 19.2 H Plt Count 131 L Lymph % (Auto) [place] # (Auto) Eos # (Auto) Seg Neutrophils % Lymphocytes % (Manual) Eosinophils % (Manual) Basophils % (Manual) Nucleated RBC % Seg Neutrophils # Seg Neutrophils # Man Lymphocytes # (Manual) Monocytes # (Manual) Eosinophils # (Manual) Basophils # (Manual) Percent Retic PT 16.0 H INR 1.16 H Fibrinogen D-Dimer ABG pH POC ABG pCO2 POC ABG pO2 ABG pO2 ABG HCO3 ABG O2 Saturation ABG Base Excess ABG Hemoglobin ABG Oxyhemoglobin ABG Sodium ABG Potassium ABG Chloride ABG Glucose Oxyhemoglobin Carboxyhemoglobin Sodium 135 L Potassium 5.3 H Chloride 96.1 L Carbon Dioxide 18 L BUN 80 H Creatinine 6.8 H Glucose 174 H POC Glucose Hemoglobin A1c Calcium 7.7 L Phosphorus Magnesium AST 106 H ALT 60 H Alkaline Phosphatase Lactate Dehydrogenase C-Reactive Protein Total Protein 5.9 L Albumin 3.5 L Triglycerides 579 H Arterial Blood Glucose Arterial Blood Ionized Calcium Urine WBC (Auto) U Epithel Cells (Auto) Urine Creatinine Random Vancomycin Coronavirus (PCR) Crossmatch 04/02/21 04/02/21 04/02/21 05:09 08:55 11:06 WBC RBC Hgb Hct MCH MCHC RDW Plt Count Lymph % (Auto) [place] # (Auto) Eos # (Auto) Seg Neutrophils % Lymphocytes % (Manual) Eosinophils % (Manual) Basophils % (Manual) Nucleated RBC % Seg Neutrophils # Seg Neutrophils # Man Lymphocytes # (Manual) Monocytes # (Manual) Eosinophils # (Manual) Basophils # (Manual) Percent Retic PT INR Fibrinogen D-Dimer ABG pH 7.188 L POC ABG pCO2 58.3 H POC ABG pO2 132.8 H ABG pO2 ABG HCO3 ABG O2 Saturation ABG Base Excess ABG Hemoglobin 8.4 L ABG Oxyhemoglobin ABG Sodium ABG Potassium 5.0 H ABG Chloride 97.0 L ABG Glucose 156 H Oxyhemoglobin Carboxyhemoglobin 0.4 L Sodium Potassium Chloride Carbon Dioxide BUN Creatinine Glucose POC Glucose 148 H 167 H Hemoglobin A1c Calcium Phosphorus Magnesium AST ALT Alkaline Phosphatase Lactate Dehydrogenase C-Reactive Protein Total Protein Albumin Triglycerides Arterial Blood Glucose 156 H Arterial Blood Ionized Calcium 4.2 L Urine WBC (Auto) U Epithel Cells (Auto) Urine Creatinine Random Vancomycin Coronavirus (PCR) Crossmatch 04/02/21 04/02/21 04/03/21 17:57 20:40 00:28 WBC RBC Hgb Hct MCH MCHC RDW Plt Count Lymph % (Auto) [place] # (Auto) Eos # (Auto) Seg Neutrophils % Lymphocytes % (Manual) Eosinophils % (Manual) Basophils % (Manual) Nucleated RBC % Seg Neutrophils # Seg Neutrophils # Man Lymphocytes # (Manual) Monocytes # (Manual) Eosinophils # (Manual) Basophils # (Manual) Percent Retic PT INR Fibrinogen D-Dimer ABG pH POC ABG pCO2 POC ABG pO2 ABG pO2 111.9 H ABG HCO3 18.9 L ABG O2 Saturation ABG Base Excess -9.9 L ABG Hemoglobin ABG Oxyhemoglobin ABG Sodium ABG Potassium ABG Chloride ABG Glucose Oxyhemoglobin Carboxyhemoglobin Sodium Potassium Chloride Carbon Dioxide BUN Creatinine Glucose POC Glucose 205 H 217 H Hemoglobin A1c Calcium Phosphorus Magnesium AST ALT Alkaline Phosphatase Lactate Dehydrogenase C-Reactive Protein Total Protein Albumin Triglycerides Arterial Blood Glucose Arterial Blood Ionized Calcium Urine WBC (Auto) U Epithel Cells (Auto) Urine Creatinine Random Vancomycin Coronavirus (PCR) Crossmatch 04/03/21 04/03/21 04/03/21 03:39 04:30 04:30 WBC 31.1 H RBC 2.78 L Hgb 8.0 L Hct 24.0 L MCH MCHC RDW 19.0 H Plt Count Lymph % (Auto) [place] # (Auto) Eos # (Auto) Seg Neutrophils % Lymphocytes % (Manual) Eosinophils % (Manual) 27.0 H Basophils % (Manual) 2.0 H Nucleated RBC % Seg Neutrophils # Seg Neutrophils # Man 13.7 H Lymphocytes # (Manual) 8.4 H Monocytes # (Manual) Eosinophils # (Manual) 8.4 H Basophils # (Manual) 0.6 H Percent Retic PT INR Fibrinogen D-Dimer ABG pH POC ABG pCO2 POC ABG pO2 ABG pO2 ABG HCO3 ABG O2 Saturation ABG Base Excess ABG Hemoglobin ABG Oxyhemoglobin ABG Sodium ABG Potassium ABG Chloride ABG Glucose Oxyhemoglobin Carboxyhemoglobin Sodium 132 L Potassium 5.8 H Chloride 94.5 L Carbon Dioxide 16 L BUN 97 H Creatinine 7.7 H Glucose 230 H POC Glucose 201 H Hemoglobin A1c Calcium 7.6 L Phosphorus Magnesium AST 47 H ALT Alkaline Phosphatase 146 H Lactate Dehydrogenase C-Reactive Protein Total Protein 5.2 L Albumin 3.4 L Triglycerides Arterial Blood Glucose Arterial Blood Ionized Calcium Urine WBC (Auto) U Epithel Cells (Auto) Urine Creatinine Random Vancomycin Coronavirus (PCR) Crossmatch 04/03/21 04/03/21 04/03/21 04:30 08:31 11:29 WBC RBC Hgb Hct MCH MCHC RDW Plt Count Lymph % (Auto) [place] # (Auto) Eos # (Auto) Seg Neutrophils % Lymphocytes % (Manual) Eosinophils % (Manual) Basophils % (Manual) Nucleated RBC % Seg Neutrophils # Seg Neutrophils # Man Lymphocytes # (Manual) Monocytes # (Manual) Eosinophils # (Manual) Basophils # (Manual) Percent Retic PT INR Fibrinogen D-Dimer ABG pH 7.195 L* POC ABG pCO2 POC ABG pO2 ABG pO2 102.6 H ABG HCO3 ABG O2 Saturation ABG Base Excess -7.2 L ABG Hemoglobin 8.0 L ABG Oxyhemoglobin ABG Sodium ABG Potassium ABG Chloride ABG Glucose Oxyhemoglobin 94.7 L Carboxyhemoglobin Sodium Potassium Chloride Carbon Dioxide BUN Creatinine Glucose POC Glucose 230 H Hemoglobin A1c Calcium Phosphorus 10.30 H Magnesium AST ALT Alkaline Phosphatase Lactate Dehydrogenase C-Reactive Protein Total Protein Albumin Triglycerides Arterial Blood Glucose Arterial Blood Ionized Calcium Urine WBC (Auto) U Epithel Cells (Auto) Urine Creatinine Random Vancomycin Coronavirus (PCR) Crossmatch 04/03/21 04/03/21 04/04/21 16:53 20:45 05:00 WBC 28.8 H RBC 2.64 L Hgb 8.7 L Hct 22.2 L MCH 33 H MCHC 39 H* RDW 18.6 H Plt Count Lymph % (Auto) [place] # (Auto) Eos # (Auto) Seg Neutrophils % Lymphocytes % (Manual) Eosinophils % (Manual) Basophils % (Manual) Nucleated RBC % Seg Neutrophils # Seg Neutrophils # Man Lymphocytes # (Manual) Monocytes # (Manual) Eosinophils # (Manual) Basophils # (Manual) Percent Retic PT INR Fibrinogen D-Dimer ABG pH POC ABG pCO2 POC ABG pO2 ABG pO2 ABG HCO3 ABG O2 Saturation ABG Base Excess ABG Hemoglobin ABG Oxyhemoglobin ABG Sodium ABG Potassium ABG Chloride ABG Glucose Oxyhemoglobin 94.8 L Carboxyhemoglobin Sodium Potassium Chloride Carbon Dioxide BUN Creatinine Glucose POC Glucose 227 H Hemoglobin A1c Calcium Phosphorus Magnesium AST ALT Alkaline Phosphatase Lactate Dehydrogenase C-Reactive Protein Total Protein Albumin Triglycerides Arterial Blood Glucose Arterial Blood Ionized Calcium Urine WBC (Auto) U Epithel Cells (Auto) Urine Creatinine Random Vancomycin Coronavirus (PCR) Crossmatch 04/04/21 04/04/21 04/04/21 05:29 07:55 09:20 WBC RBC Hgb Hct MCH MCHC RDW Plt Count Lymph % (Auto) [place] # (Auto) Eos # (Auto) Seg Neutrophils % Lymphocytes % (Manual) Eosinophils % (Manual) Basophils % (Manual) Nucleated RBC % Seg Neutrophils # Seg Neutrophils # Man Lymphocytes # (Manual) Monocytes # (Manual) Eosinophils # (Manual) Basophils # (Manual) Percent Retic PT INR Fibrinogen D-Dimer ABG pH POC ABG pCO2 POC ABG pO2 ABG pO2 ABG HCO3 ABG O2 Saturation ABG Base Excess ABG Hemoglobin ABG Oxyhemoglobin ABG Sodium ABG Potassium ABG Chloride ABG Glucose Oxyhemoglobin Carboxyhemoglobin Sodium 133 L Potassium Chloride 91.0 L Carbon Dioxide 20 L BUN 75 H Creatinine 4.7 H Glucose 184 H POC Glucose 133 H Hemoglobin A1c Calcium 7.3 L Phosphorus Magnesium AST < 5 L ALT < 5 L Alkaline Phosphatase 200 H Lactate Dehydrogenase C-Reactive Protein Total Protein 5.6 L Albumin 2.9 L Triglycerides Arterial Blood Glucose Arterial Blood Ionized Calcium Urine WBC (Auto) U Epithel Cells (Auto) Urine Creatinine Random Vancomycin Coronavirus (PCR) Crossmatch See Detail 04/04/21 04/04/21 04/04/21 12:01 14:06 17:05 WBC RBC Hgb Hct MCH MCHC RDW Plt Count Lymph % (Auto) [place] # (Auto) Eos # (Auto) Seg Neutrophils % Lymphocytes % (Manual) Eosinophils % (Manual) Basophils % (Manual) Nucleated RBC % Seg Neutrophils # Seg Neutrophils # Man Lymphocytes # (Manual) Monocytes # (Manual) Eosinophils # (Manual) Basophils # (Manual) Percent Retic PT INR Fibrinogen D-Dimer ABG pH 7.162 L* POC ABG pCO2 POC ABG pO2 ABG pO2 91.3 H ABG HCO3 ABG O2 Saturation 94.8 L ABG Base Excess -4.0 L ABG Hemoglobin 7.6 L ABG Oxyhemoglobin ABG Sodium ABG Potassium ABG Chloride ABG Glucose Oxyhemoglobin 92.4 L Carboxyhemoglobin Sodium Potassium Chloride Carbon Dioxide BUN Creatinine Glucose POC Glucose 199 H 166 H Hemoglobin A1c Calcium Phosphorus Magnesium AST ALT Alkaline Phosphatase Lactate Dehydrogenase C-Reactive Protein Total Protein Albumin Triglycerides Arterial Blood Glucose Arterial Blood Ionized Calcium Urine WBC (Auto) U Epithel Cells (Auto) Urine Creatinine Random Vancomycin Coronavirus (PCR) Crossmatch 04/04/21 04/04/21 04/05/21 21:14 23:30 05:20 WBC RBC Hgb Hct MCH MCHC RDW Plt Count Lymph % (Auto) [place] # (Auto) Eos # (Auto) Seg Neutrophils % Lymphocytes % (Manual) Eosinophils % (Manual) Basophils % (Manual) Nucleated RBC % Seg Neutrophils # Seg Neutrophils # Man Lymphocytes # (Manual) Monocytes # (Manual) Eosinophils # (Manual) Basophils # (Manual) Percent Retic PT INR Fibrinogen D-Dimer ABG pH 7.257 L POC ABG pCO2 POC ABG pO2 ABG pO2 73.8 L ABG HCO3 ABG O2 Saturation 91.6 L ABG Base Excess -2.7 L ABG Hemoglobin 8.6 L ABG Oxyhemoglobin ABG Sodium ABG Potassium ABG Chloride ABG Glucose Oxyhemoglobin 89.1 L Carboxyhemoglobin Sodium 131 L Potassium Chloride 91.2 L Carbon Dioxide 17 L BUN 85 H Creatinine 5.1 H Glucose 183 H POC Glucose 158 H Hemoglobin A1c Calcium 7.4 L Phosphorus Magnesium AST ALT Alkaline Phosphatase 190 H Lactate Dehydrogenase 394 H C-Reactive Protein Total Protein 5.8 L Albumin 2.7 L Triglycerides Arterial Blood Glucose Arterial Blood Ionized Calcium Urine WBC (Auto) U Epithel Cells (Auto) Urine Creatinine Random Vancomycin Coronavirus (PCR) Crossmatch 04/05/21 04/05/21 04/05/21 05:20 05:20 05:24 WBC 30.8 H RBC 2.83 L Hgb 8.4 L Hct 24.4 L MCH MCHC 35 H RDW 18.9 H Plt Count Lymph % (Auto) [place] # (Auto) Eos # (Auto) Seg Neutrophils % Lymphocytes % (Manual) Eosinophils % (Manual) Basophils % (Manual) Nucleated RBC % Seg Neutrophils # Seg Neutrophils # Man Lymphocytes # (Manual) Monocytes # (Manual) Eosinophils # (Manual) Basophils # (Manual) Percent Retic PT INR Fibrinogen D-Dimer ABG pH POC ABG pCO2 POC ABG pO2 ABG pO2 ABG HCO3 ABG O2 Saturation ABG Base Excess ABG Hemoglobin ABG Oxyhemoglobin ABG Sodium ABG Potassium ABG Chloride ABG Glucose Oxyhemoglobin Carboxyhemoglobin Sodium Potassium Chloride Carbon Dioxide BUN Creatinine Glucose POC Glucose 162 H Hemoglobin A1c Calcium Phosphorus 9.40 H Magnesium AST ALT Alkaline Phosphatase Lactate Dehydrogenase C-Reactive Protein Total Protein Albumin Triglycerides Arterial Blood Glucose Arterial Blood Ionized Calcium Urine WBC (Auto) U Epithel Cells (Auto) Urine Creatinine Random Vancomycin Coronavirus (PCR) Crossmatch 04/05/21 04/05/21 04/05/21 11:31 12:23 21:40 WBC RBC Hgb Hct MCH MCHC RDW Plt Count Lymph % (Auto) [place] # (Auto) Eos # (Auto) Seg Neutrophils % Lymphocytes % (Manual) Eosinophils % (Manual) Basophils % (Manual) Nucleated RBC % Seg Neutrophils # Seg Neutrophils # Man Lymphocytes # (Manual) Monocytes # (Manual) Eosinophils # (Manual) Basophils # (Manual) Percent Retic PT INR Fibrinogen D-Dimer ABG pH 7.325 L POC ABG pCO2 POC ABG pO2 ABG pO2 65.6 L ABG HCO3 ABG O2 Saturation 91.2 L ABG Base Excess ABG Hemoglobin 6.7 L ABG Oxyhemoglobin ABG Sodium ABG Potassium ABG Chloride ABG Glucose Oxyhemoglobin 89.0 L Carboxyhemoglobin Sodium Potassium Chloride Carbon Dioxide BUN Creatinine Glucose POC Glucose 196 H 190 H Hemoglobin A1c Calcium Phosphorus Magnesium AST ALT Alkaline Phosphatase Lactate Dehydrogenase C-Reactive Protein Total Protein Albumin Triglycerides Arterial Blood Glucose Arterial Blood Ionized Calcium Urine WBC (Auto) U Epithel Cells (Auto) Urine Creatinine Random Vancomycin Coronavirus (PCR) Crossmatch 04/05/21 04/06/21 04/06/21 23:53 05:35 06:00 WBC RBC Hgb Hct MCH MCHC RDW Plt Count Lymph % (Auto) [place] # (Auto) Eos # (Auto) Seg Neutrophils % Lymphocytes % (Manual) Eosinophils % (Manual) Basophils % (Manual) Nucleated RBC % Seg Neutrophils # Seg Neutrophils # Man Lymphocytes # (Manual) Monocytes # (Manual) Eosinophils # (Manual) Basophils # (Manual) Percent Retic PT INR Fibrinogen D-Dimer ABG pH POC ABG pCO2 POC ABG pO2 ABG pO2 ABG HCO3 ABG O2 Saturation ABG Base Excess ABG Hemoglobin ABG Oxyhemoglobin ABG Sodium ABG Potassium ABG Chloride ABG Glucose Oxyhemoglobin Carboxyhemoglobin Sodium 132 L Potassium Chloride 90.7 L Carbon Dioxide 21 L BUN 74 H Creatinine 4.3 H Glucose 156 H POC Glucose 192 H 139 H Hemoglobin A1c Calcium 7.9 L Phosphorus 6.90 H D Magnesium AST < 5 L ALT < 5 L Alkaline Phosphatase 185 H Lactate Dehydrogenase C-Reactive Protein Total Protein 5.7 L Albumin 2.5 L Triglycerides Arterial Blood Glucose Arterial Blood Ionized Calcium Urine WBC (Auto) U Epithel Cells (Auto) Urine Creatinine Random Vancomycin Coronavirus (PCR) Crossmatch 04/06/21 04/06/21 04/06/21 06:00 11:27 18:01 WBC 26.7 H RBC 2.39 L Hgb 6.9 L Hct 20.1 L MCH MCHC RDW 18.7 H Plt Count Lymph % (Auto) [place] # (Auto) Eos # (Auto) Seg Neutrophils % Lymphocytes % (Manual) Eosinophils % (Manual) Basophils % (Manual) Nucleated RBC % Seg Neutrophils # Seg Neutrophils # Man Lymphocytes # (Manual) Monocytes # (Manual) Eosinophils # (Manual) Basophils # (Manual) Percent Retic PT INR Fibrinogen D-Dimer ABG pH POC ABG pCO2 POC ABG pO2 ABG pO2 ABG HCO3 ABG O2 Saturation ABG Base Excess ABG Hemoglobin ABG Oxyhemoglobin ABG Sodium ABG Potassium ABG Chloride ABG Glucose Oxyhemoglobin Carboxyhemoglobin Sodium Potassium Chloride Carbon Dioxide BUN Creatinine Glucose POC Glucose 166 H 159 H Hemoglobin A1c Calcium Phosphorus Magnesium AST ALT Alkaline Phosphatase Lactate Dehydrogenase C-Reactive Protein Total Protein Albumin Triglycerides Arterial Blood Glucose Arterial Blood Ionized Calcium Urine WBC (Auto) U Epithel Cells (Auto) Urine Creatinine Random Vancomycin Coronavirus (PCR) Crossmatch 04/06/21 04/06/21 04/06/21 20:50 23:43 Unknown WBC RBC Hgb Hct MCH MCHC RDW Plt Count Lymph % (Auto) [place] # (Auto) Eos # (Auto) Seg Neutrophils % Lymphocytes % (Manual) Eosinophils % (Manual) Basophils % (Manual) Nucleated RBC % Seg Neutrophils # Seg Neutrophils # Man Lymphocytes # (Manual) Monocytes # (Manual) Eosinophils # (Manual) Basophils # (Manual) Percent Retic PT INR Fibrinogen D-Dimer ABG pH 7.303 L POC ABG pCO2 POC ABG pO2 67.9 L ABG pO2 ABG HCO3 ABG O2 Saturation ABG Base Excess ABG Hemoglobin 7.6 L ABG Oxyhemoglobin 90.2 L ABG Sodium 128.6 L ABG Potassium ABG Chloride 97.0 L ABG Glucose 154 H Oxyhemoglobin Carboxyhemoglobin Sodium Potassium Chloride Carbon Dioxide BUN Creatinine Glucose POC Glucose 137 H Hemoglobin A1c Calcium Phosphorus Magnesium AST ALT Alkaline Phosphatase Lactate Dehydrogenase C-Reactive Protein Total Protein Albumin Triglycerides Arterial Blood Glucose 154 H Arterial Blood Ionized Calcium Urine WBC (Auto) 148.0 H U Epithel Cells (Auto) 102.0 H Urine Creatinine Random Vancomycin Coronavirus (PCR) Crossmatch 04/07/21 04/07/21 04/07/21 03:50 03:50 03:50 WBC 26.7 H RBC 2.66 L Hgb 7.6 L Hct 23.2 L MCH MCHC RDW 18.5 H Plt Count Lymph % (Auto) [place] # (Auto) Eos # (Auto) Seg Neutrophils % Lymphocytes % (Manual) 10.0 L Eosinophils % (Manual) 19.0 H Basophils % (Manual) Nucleated RBC % 2.0 H Seg Neutrophils # Seg Neutrophils # Man 17.9 H Lymphocytes # (Manual) Monocytes # (Manual) 1.1 H Eosinophils # (Manual) 5.1 H Basophils # (Manual) Percent Retic PT INR Fibrinogen D-Dimer 2178 H ABG pH POC ABG pCO2 POC ABG pO2 ABG pO2 ABG HCO3 ABG O2 Saturation ABG Base Excess ABG Hemoglobin ABG Oxyhemoglobin ABG Sodium ABG Potassium ABG Chloride ABG Glucose Oxyhemoglobin Carboxyhemoglobin Sodium 130 L Potassium Chloride 91.1 L Carbon Dioxide 19 L BUN 92 H Creatinine 4.2 H Glucose 213 H POC Glucose Hemoglobin A1c Calcium 7.8 L Phosphorus Magnesium AST ALT Alkaline Phosphatase Lactate Dehydrogenase C-Reactive Protein Total Protein Albumin Triglycerides Arterial Blood Glucose Arterial Blood Ionized Calcium Urine WBC (Auto) U Epithel Cells (Auto) Urine Creatinine Random Vancomycin Coronavirus (PCR) Crossmatch 04/07/21 04/07/21 04/07/21 04:00 05:42 11:10 WBC RBC Hgb Hct MCH MCHC RDW Plt Count Lymph % (Auto) [place] # (Auto) Eos # (Auto) Seg Neutrophils % Lymphocytes % (Manual) Eosinophils % (Manual) Basophils % (Manual) Nucleated RBC % Seg Neutrophils # Seg Neutrophils # Man Lymphocytes # (Manual) Monocytes # (Manual) Eosinophils # (Manual) Basophils # (Manual) Percent Retic PT INR Fibrinogen D-Dimer ABG pH POC ABG pCO2 POC ABG pO2 ABG pO2 ABG HCO3 ABG O2 Saturation ABG Base Excess ABG Hemoglobin ABG Oxyhemoglobin ABG Sodium ABG Potassium ABG Chloride ABG Glucose Oxyhemoglobin Carboxyhemoglobin Sodium 129 L Potassium 5.1 H Chloride 89.6 L Carbon Dioxide 18 L BUN 94 H Creatinine 4.2 H Glucose 213 H POC Glucose 177 H 136 H Hemoglobin A1c Calcium 7.9 L Phosphorus Magnesium AST ALT Alkaline Phosphatase 167 H Lactate Dehydrogenase C-Reactive Protein Total Protein Albumin 2.8 L Triglycerides Arterial Blood Glucose Arterial Blood Ionized Calcium Urine WBC (Auto) U Epithel Cells (Auto) Urine Creatinine Random Vancomycin Coronavirus (PCR) Crossmatch 04/07/21 04/07/21 04/08/21 16:19 21:30 02:32 WBC RBC Hgb Hct MCH MCHC RDW Plt Count Lymph % (Auto) [place] # (Auto) Eos # (Auto) Seg Neutrophils % Lymphocytes % (Manual) Eosinophils % (Manual) Basophils % (Manual) Nucleated RBC % Seg Neutrophils # Seg Neutrophils # Man Lymphocytes # (Manual) Monocytes # (Manual) Eosinophils # (Manual) Basophils # (Manual) Percent Retic PT INR Fibrinogen D-Dimer ABG pH 7.209 L POC ABG pCO2 64.8 H POC ABG pO2 ABG pO2 ABG HCO3 ABG O2 Saturation ABG Base Excess ABG Hemoglobin 7.9 L ABG Oxyhemoglobin 93.8 L ABG Sodium 128.8 L ABG Potassium 4.6 H ABG Chloride 97.0 L ABG Glucose 170 H Oxyhemoglobin Carboxyhemoglobin 1.6 H Sodium Potassium Chloride Carbon Dioxide BUN Creatinine Glucose POC Glucose 155 H 141 H Hemoglobin A1c Calcium Phosphorus Magnesium AST ALT Alkaline Phosphatase Lactate Dehydrogenase C-Reactive Protein Total Protein Albumin Triglycerides Arterial Blood Glucose 170 H Arterial Blood Ionized Calcium 4.2 L Urine WBC (Auto) U Epithel Cells (Auto) Urine Creatinine Random Vancomycin Coronavirus (PCR) Crossmatch 04/08/21 04/08/21 04/08/21 04:00 04:40 04:40 WBC 23.7 H RBC 2.51 L Hgb 6.9 L Hct 22.1 L MCH 27 L MCHC RDW 18.4 H Plt Count Lymph % (Auto) [place] # (Auto) Eos # (Auto) Seg Neutrophils % Lymphocytes % (Manual) Eosinophils % (Manual) Basophils % (Manual) Nucleated RBC % Seg Neutrophils # Seg Neutrophils # Man Lymphocytes # (Manual) Monocytes # (Manual) Eosinophils # (Manual) Basophils # (Manual) Percent Retic PT INR Fibrinogen D-Dimer 2696.79 H ABG pH POC ABG pCO2 POC ABG pO2 ABG pO2 ABG HCO3 ABG O2 Saturation ABG Base Excess ABG Hemoglobin ABG Oxyhemoglobin ABG Sodium ABG Potassium ABG Chloride ABG Glucose Oxyhemoglobin Carboxyhemoglobin Sodium 133 L Potassium 5.5 H Chloride 93.5 L Carbon Dioxide BUN 78 H Creatinine 3.5 H Glucose 171 H POC Glucose Hemoglobin A1c Calcium 8.1 L Phosphorus 9.30 H Magnesium AST ALT Alkaline Phosphatase Lactate Dehydrogenase C-Reactive Protein 26.10 H Total Protein Albumin Triglycerides 487 H Arterial Blood Glucose Arterial Blood Ionized Calcium Urine WBC (Auto) U Epithel Cells (Auto) Urine Creatinine Random Vancomycin Coronavirus (PCR) Crossmatch 04/08/21 04/08/21 04/08/21 09:55 11:37 13:55 WBC RBC Hgb Hct MCH MCHC RDW Plt Count Lymph % (Auto) [place] # (Auto) Eos # (Auto) Seg Neutrophils % Lymphocytes % (Manual) Eosinophils % (Manual) Basophils % (Manual) Nucleated RBC % Seg Neutrophils # Seg Neutrophils # Man Lymphocytes # (Manual) Monocytes # (Manual) Eosinophils # (Manual) Basophils # (Manual) Percent Retic PT INR Fibrinogen D-Dimer ABG pH 7.114 L* POC ABG pCO2 POC ABG pO2 ABG pO2 75.9 L ABG HCO3 26.2 H ABG O2 Saturation 90.6 L ABG Base Excess -3.6 L ABG Hemoglobin 8.2 L ABG Oxyhemoglobin ABG Sodium ABG Potassium ABG Chloride ABG Glucose Oxyhemoglobin 88.0 L Carboxyhemoglobin Sodium Potassium Chloride Carbon Dioxide BUN Creatinine Glucose POC Glucose 156 H Hemoglobin A1c Calcium Phosphorus Magnesium AST ALT Alkaline Phosphatase Lactate Dehydrogenase C-Reactive Protein Total Protein Albumin Triglycerides Arterial Blood Glucose Arterial Blood Ionized Calcium Urine WBC (Auto) U Epithel Cells (Auto) Urine Creatinine Random Vancomycin Coronavirus (PCR) Crossmatch See Detail 04/08/21 04/08/21 04/08/21 17:04 20:53 23:56 WBC RBC Hgb Hct MCH MCHC RDW Plt Count Lymph % (Auto) [place] # (Auto) Eos # (Auto) Seg Neutrophils % Lymphocytes % (Manual) Eosinophils % (Manual) Basophils % (Manual) Nucleated RBC % Seg Neutrophils # Seg Neutrophils # Man Lymphocytes # (Manual) Monocytes # (Manual) Eosinophils # (Manual) Basophils # (Manual) Percent Retic PT INR Fibrinogen D-Dimer ABG pH 7.207 L POC ABG pCO2 49.8 H POC ABG pO2 ABG pO2 ABG HCO3 ABG O2 Saturation ABG Base Excess ABG Hemoglobin 7.6 L ABG Oxyhemoglobin ABG Sodium 127.3 L ABG Potassium 5.7 H ABG Chloride 96.0 L ABG Glucose 185 H Oxyhemoglobin Carboxyhemoglobin Sodium Potassium Chloride Carbon Dioxide BUN Creatinine Glucose POC Glucose 178 H 189 H Hemoglobin A1c Calcium Phosphorus Magnesium AST ALT Alkaline Phosphatase Lactate Dehydrogenase C-Reactive Protein Total Protein Albumin Triglycerides Arterial Blood Glucose 185 H Arterial Blood Ionized Calcium 4.3 L Urine WBC (Auto) U Epithel Cells (Auto) Urine Creatinine Random Vancomycin Coronavirus (PCR) Crossmatch 04/09/21 04/09/21 04/09/21 04:00 04:00 05:24 WBC 21.9 H RBC 2.70 L Hgb 7.8 L Hct 24.1 L MCH MCHC RDW 18.3 H Plt Count Lymph % (Auto) [place] # (Auto) Eos # (Auto) Seg Neutrophils % Lymphocytes % (Manual) Eosinophils % (Manual) Basophils % (Manual) Nucleated RBC % Seg Neutrophils # Seg Neutrophils # Man Lymphocytes # (Manual) Monocytes # (Manual) Eosinophils # (Manual) Basophils # (Manual) Percent Retic PT INR Fibrinogen D-Dimer ABG pH POC ABG pCO2 POC ABG pO2 ABG pO2 ABG HCO3 ABG O2 Saturation ABG Base Excess ABG Hemoglobin ABG Oxyhemoglobin ABG Sodium ABG Potassium ABG Chloride ABG Glucose Oxyhemoglobin Carboxyhemoglobin Sodium 131 L Potassium 6.3 H* Chloride 93.0 L Carbon Dioxide 19 L BUN 98 H Creatinine 4.6 H Glucose 208 H POC Glucose 191 H Hemoglobin A1c Calcium 8.1 L Phosphorus Magnesium AST ALT Alkaline Phosphatase Lactate Dehydrogenase C-Reactive Protein Total Protein Albumin Triglycerides Arterial Blood Glucose Arterial Blood Ionized Calcium Urine WBC (Auto) U Epithel Cells (Auto) Urine Creatinine Random Vancomycin Coronavirus (PCR) Crossmatch 04/09/21 04/09/21 04/09/21 12:42 16:59 21:00 WBC RBC Hgb Hct MCH MCHC RDW Plt Count Lymph % (Auto) [place] # (Auto) Eos # (Auto) Seg Neutrophils % Lymphocytes % (Manual) Eosinophils % (Manual) Basophils % (Manual) Nucleated RBC % Seg Neutrophils # Seg Neutrophils # Man Lymphocytes # (Manual) Monocytes # (Manual) Eosinophils # (Manual) Basophils # (Manual) Percent Retic PT INR Fibrinogen D-Dimer ABG pH 7.192 L POC ABG pCO2 63.4 H POC ABG pO2 ABG pO2 ABG HCO3 ABG O2 Saturation ABG Base Excess ABG Hemoglobin 8.7 L ABG Oxyhemoglobin 92.9 L ABG Sodium 135.1 L ABG Potassium ABG Chloride ABG Glucose 208 H Oxyhemoglobin Carboxyhemoglobin Sodium Potassium Chloride Carbon Dioxide BUN Creatinine Glucose POC Glucose 198 H 218 H Hemoglobin A1c Calcium Phosphorus Magnesium AST ALT Alkaline Phosphatase Lactate Dehydrogenase C-Reactive Protein Total Protein Albumin Triglycerides Arterial Blood Glucose 208 H Arterial Blood Ionized Calcium Urine WBC (Auto) U Epithel Cells (Auto) Urine Creatinine Random Vancomycin Coronavirus (PCR) Crossmatch 04/09/21 04/10/21 04/10/21 23:31 04:45 04:45 WBC 18.0 H RBC 2.65 L Hgb 7.4 L Hct 23.3 L MCH MCHC RDW 18.5 H Plt Count Lymph % (Auto) [place] # (Auto) Eos # (Auto) Seg Neutrophils % Lymphocytes % (Manual) Eosinophils % (Manual) Basophils % (Manual) Nucleated RBC % Seg Neutrophils # Seg Neutrophils # Man Lymphocytes # (Manual) Monocytes # (Manual) Eosinophils # (Manual) Basophils # (Manual) Percent Retic PT INR Fibrinogen D-Dimer ABG pH POC ABG pCO2 POC ABG pO2 ABG pO2 ABG HCO3 ABG O2 Saturation ABG Base Excess ABG Hemoglobin ABG Oxyhemoglobin ABG Sodium ABG Potassium ABG Chloride ABG Glucose Oxyhemoglobin Carboxyhemoglobin Sodium Potassium 5.5 H Chloride Carbon Dioxide 21 L BUN 83 H Creatinine 3.4 H Glucose 211 H POC Glucose 162 H Hemoglobin A1c Calcium Phosphorus Magnesium AST ALT Alkaline Phosphatase Lactate Dehydrogenase C-Reactive Protein Total Protein Albumin Triglycerides Arterial Blood Glucose Arterial Blood Ionized Calcium Urine WBC (Auto) U Epithel Cells (Auto) Urine Creatinine Random Vancomycin Coronavirus (PCR) Crossmatch 04/10/21 04/10/21 04/10/21 05:01 11:58 17:42 WBC RBC Hgb Hct MCH MCHC RDW Plt Count Lymph % (Auto) [place] # (Auto) Eos # (Auto) Seg Neutrophils % Lymphocytes % (Manual) Eosinophils % (Manual) Basophils % (Manual) Nucleated RBC % Seg Neutrophils # Seg Neutrophils # Man Lymphocytes # (Manual) Monocytes # (Manual) Eosinophils # (Manual) Basophils # (Manual) Percent Retic PT INR Fibrinogen D-Dimer ABG pH POC ABG pCO2 POC ABG pO2 ABG pO2 ABG HCO3 ABG O2 Saturation ABG Base Excess ABG Hemoglobin ABG Oxyhemoglobin ABG Sodium ABG Potassium ABG Chloride ABG Glucose Oxyhemoglobin Carboxyhemoglobin Sodium Potassium Chloride Carbon Dioxide BUN Creatinine Glucose POC Glucose 183 H 136 H 166 H Hemoglobin A1c Calcium Phosphorus Magnesium AST ALT Alkaline Phosphatase Lactate Dehydrogenase C-Reactive Protein Total Protein Albumin Triglycerides Arterial Blood Glucose Arterial Blood Ionized Calcium Urine WBC (Auto) U Epithel Cells (Auto) Urine Creatinine Random Vancomycin Coronavirus (PCR) Crossmatch 04/11/21 04/11/21 04/11/21 00:02 04:15 04:15 WBC 16.3 H RBC 2.53 L Hgb 7.0 L Hct 22.6 L MCH MCHC RDW 18.4 H Plt Count Lymph % (Auto) [place] # (Auto) Eos # (Auto) Seg Neutrophils % Lymphocytes % (Manual) Eosinophils % (Manual) Basophils % (Manual) Nucleated RBC % Seg Neutrophils # Seg Neutrophils # Man Lymphocytes # (Manual) Monocytes # (Manual) Eosinophils # (Manual) Basophils # (Manual) Percent Retic PT INR Fibrinogen D-Dimer ABG pH POC ABG pCO2 POC ABG pO2 ABG pO2 ABG HCO3 ABG O2 Saturation ABG Base Excess ABG Hemoglobin ABG Oxyhemoglobin ABG Sodium ABG Potassium ABG Chloride ABG Glucose Oxyhemoglobin Carboxyhemoglobin Sodium Potassium Chloride Carbon Dioxide BUN 71 H Creatinine 3.1 H Glucose 183 H POC Glucose 155 H Hemoglobin A1c Calcium Phosphorus Magnesium AST ALT Alkaline Phosphatase Lactate Dehydrogenase C-Reactive Protein Total Protein Albumin Triglycerides 406 H Arterial Blood Glucose Arterial Blood Ionized Calcium Urine WBC (Auto) U Epithel Cells (Auto) Urine Creatinine Random Vancomycin Coronavirus (PCR) Crossmatch 04/11/21 04/11/21 04/11/21 05:46 11:34 11:50 WBC RBC Hgb 6.7 L Hct 20.8 L MCH MCHC RDW Plt Count Lymph % (Auto) [place] # (Auto) Eos # (Auto) Seg Neutrophils % Lymphocytes % (Manual) Eosinophils % (Manual) Basophils % (Manual) Nucleated RBC % Seg Neutrophils # Seg Neutrophils # Man Lymphocytes # (Manual) Monocytes # (Manual) Eosinophils # (Manual) Basophils # (Manual) Percent Retic PT INR Fibrinogen D-Dimer ABG pH POC ABG pCO2 POC ABG pO2 ABG pO2 ABG HCO3 ABG O2 Saturation ABG Base Excess ABG Hemoglobin ABG Oxyhemoglobin ABG Sodium ABG Potassium ABG Chloride ABG Glucose Oxyhemoglobin Carboxyhemoglobin Sodium Potassium Chloride Carbon Dioxide BUN Creatinine Glucose POC Glucose 157 H 132 H Hemoglobin A1c Calcium Phosphorus Magnesium AST ALT Alkaline Phosphatase Lactate Dehydrogenase C-Reactive Protein Total Protein Albumin Triglycerides Arterial Blood Glucose Arterial Blood Ionized Calcium Urine WBC (Auto) U Epithel Cells (Auto) Urine Creatinine Random Vancomycin Coronavirus (PCR) Crossmatch 04/11/21 04/11/21 04/11/21 13:39 17:49 17:50 WBC RBC Hgb 6.5 L Hct 21.4 L MCH MCHC RDW Plt Count Lymph % (Auto) [place] # (Auto) Eos # (Auto) Seg Neutrophils % Lymphocytes % (Manual) Eosinophils % (Manual) Basophils % (Manual) Nucleated RBC % Seg Neutrophils # Seg Neutrophils # Man Lymphocytes # (Manual) Monocytes # (Manual) Eosinophils # (Manual) Basophils # (Manual) Percent Retic PT INR Fibrinogen D-Dimer ABG pH POC ABG pCO2 POC ABG pO2 ABG pO2 ABG HCO3 ABG O2 Saturation ABG Base Excess ABG Hemoglobin ABG Oxyhemoglobin ABG Sodium ABG Potassium ABG Chloride ABG Glucose Oxyhemoglobin Carboxyhemoglobin Sodium Potassium Chloride Carbon Dioxide BUN Creatinine Glucose POC Glucose 136 H Hemoglobin A1c Calcium Phosphorus Magnesium AST ALT Alkaline Phosphatase Lactate Dehydrogenase C-Reactive Protein Total Protein Albumin Triglycerides Arterial Blood Glucose Arterial Blood Ionized Calcium Urine WBC (Auto) U Epithel Cells (Auto) Urine Creatinine Random Vancomycin Coronavirus (PCR) Crossmatch See Detail 04/12/21 04/12/21 04/12/21 00:25 00:29 02:52 WBC RBC Hgb 7.4 L Hct 23.5 L MCH MCHC RDW Plt Count Lymph % (Auto) [place] # (Auto) Eos # (Auto) Seg Neutrophils % Lymphocytes % (Manual) Eosinophils % (Manual) Basophils % (Manual) Nucleated RBC % Seg Neutrophils # Seg Neutrophils # Man Lymphocytes # (Manual) Monocytes # (Manual) Eosinophils # (Manual) Basophils # (Manual) Percent Retic PT INR Fibrinogen D-Dimer ABG pH 7.253 L POC ABG pCO2 POC ABG pO2 ABG pO2 79.6 L ABG HCO3 ABG O2 Saturation 94.1 L ABG Base Excess -3.6 L ABG Hemoglobin 8.1 L ABG Oxyhemoglobin ABG Sodium ABG Potassium ABG Chloride ABG Glucose Oxyhemoglobin 93.6 L Carboxyhemoglobin Sodium Potassium Chloride Carbon Dioxide BUN Creatinine Glucose POC Glucose 125 H Hemoglobin A1c Calcium Phosphorus Magnesium AST ALT Alkaline Phosphatase Lactate Dehydrogenase C-Reactive Protein Total Protein Albumin Triglycerides Arterial Blood Glucose Arterial Blood Ionized Calcium Urine WBC (Auto) U Epithel Cells (Auto) Urine Creatinine Random Vancomycin Coronavirus (PCR) Crossmatch 04/12/21 04/12/21 04/12/21 04:30 04:30 05:41 WBC 17.5 H RBC 2.68 L Hgb 7.6 L Hct 24.0 L MCH MCHC RDW 18.0 H Plt Count Lymph % (Auto) [place] # (Auto) Eos # (Auto) Seg Neutrophils % Lymphocytes % (Manual) Eosinophils % (Manual) Basophils % (Manual) Nucleated RBC % Seg Neutrophils # Seg Neutrophils # Man Lymphocytes # (Manual) Monocytes # (Manual) Eosinophils # (Manual) Basophils # (Manual) Percent Retic PT INR Fibrinogen D-Dimer ABG pH POC ABG pCO2 POC ABG pO2 ABG pO2 ABG HCO3 ABG O2 Saturation ABG Base Excess ABG Hemoglobin ABG Oxyhemoglobin ABG Sodium ABG Potassium ABG Chloride ABG Glucose Oxyhemoglobin Carboxyhemoglobin Sodium Potassium Chloride Carbon Dioxide BUN 87 H Creatinine 4.5 H Glucose 136 H POC Glucose 115 H Hemoglobin A1c Calcium Phosphorus 6.50 H Magnesium AST ALT Alkaline Phosphatase Lactate Dehydrogenase C-Reactive Protein Total Protein Albumin Triglycerides Arterial Blood Glucose Arterial Blood Ionized Calcium Urine WBC (Auto) U Epithel Cells (Auto) Urine Creatinine Random Vancomycin Coronavirus (PCR) Crossmatch Allied health notes reviewed: RT
[2021-04-12] MEDS: NORepinephrine/NS 8 MG-250 ML 8 MG/250 ML INFUS..BTL IV SCH (07:44)
[2021-04-12] MEDS: ACETAMINOPHEN 325 MG/10.15 ML ORAL LIQD UNIT DOSE FEEDTUBE PRN ×2 (08:12→17:31)
[2021-04-12] MEDS: CALCIUM ACETATE 667 MG CAP FEEDTUBE SCH ×3 (08:13→20:38)
--- NOTE | 2021-04-12 08:40 | Hem/Onc Progress Note ---
Subjective Date of service: 04/12/21 Interval history: Heme progress note cpt: [id number] Dx: thrombocytopenia 31yo obese AA woman 300 lbs, with covid infection and ARF requiring hD s/p plasma exchange x 2 days, has had hypotension, on pressors h/o asthma and intubation 2018 h/o crohns disease per notes S/p ETT exchange and bronchoscopy 04/11 due to bloody secretions DATA REVIEWED BELOW Hct 24 Plts 140 Fib 455 IMP: Continues with severe anemia high WBC is "reactive"-not heme malignancy REC/PLAN: Transfuse 1 unit RBC whenever hct<23 OK for eliquis 2.5mg vt bid Family meeting with palliative care appropriate Laboratory Last Values WBC 17.5 K/mm3 (4.5-11.0) H 04/12/21 04:30 Hgb 7.6 gm/dl (10.1-14.3) L 04/12/21 04:30 Hct 24.0 % (30.3-42.9) L 04/12/21 04:30 Plt Count 140 K/mm3 (140-440) 04/12/21 04:30 PT 13.9 Sec. (12.2-14.9) 04/04/21 07:55 INR 0.96 (0.87-1.13) 04/04/21 07:55 APTT 28.9 Sec. (24.2-36.6) 04/04/21 07:55 Fibrinogen 455 mg/dl (211-480) 04/07/21 03:50 D-Dimer 2696.79 ng/mlDDU (0-234) H 04/08/21 04:40 Alkaline Phosphatase 167 units/L (35-129) H 04/07/21 04:00 Lactate Dehydrogenase 394 units/L (91-180) H 04/05/21 05:20 C-Reactive Protein 26.10 mg/dL (0.00-1.30) H 04/08/21 04:00 Total Protein 6.6 g/dL (6.3-8.2) 04/07/21 04:00 Direct Antiglob Test Negative 03/31/21 23:18 NIKOLE, Poly Interpret Negative 03/31/21 23:18 Crossmatch See Detail 04/11/21 13:39 Objective - Constitutional Vitals: Last Vital Signs Temp 101.6 F H 04/12/21 04:00 Pulse 128 H 04/12/21 07:01 Resp 17 04/12/21 07:01 BP 146/82 04/12/21 04:18 Pulse Ox 100 04/12/21 07:01 - Labs Lab Results: Laboratory Results - last 24 hr 04/08/21 04/11/21 04/11/21 13:55 11:34 11:50 WBC RBC Hgb 6.7 L Hct 20.8 L MCV MCH MCHC RDW Plt Count ABG pH ABG pCO2 ABG pO2 ABG HCO3 ABG O2 Saturation ABG Base Excess ABG Hemoglobin ABG Carboxyhemoglobin ABG Methemoglobin Oxyhemoglobin Sodium Potassium Chloride Carbon Dioxide Anion Gap BUN Creatinine Estimated GFR BUN/Creatinine Ratio Glucose POC Glucose 132 H Calcium Phosphorus Magnesium Random Vancomycin Blood Type Antibody Screen Crossmatch See Detail 04/11/21 04/11/21 04/11/21 13:39 17:49 17:50 WBC RBC Hgb 6.5 L Hct 21.4 L MCV MCH MCHC RDW Plt Count ABG pH ABG pCO2 ABG pO2 ABG HCO3 ABG O2 Saturation ABG Base Excess ABG Hemoglobin ABG Carboxyhemoglobin ABG Methemoglobin Oxyhemoglobin Sodium Potassium Chloride Carbon Dioxide Anion Gap BUN Creatinine Estimated GFR BUN/Creatinine Ratio Glucose POC Glucose 136 H Calcium Phosphorus Magnesium Random Vancomycin Blood Type O POSITIVE Antibody Screen Negative Crossmatch See Detail 04/12/21 04/12/21 04/12/21 00:25 00:29 02:52 WBC RBC Hgb 7.4 L Hct 23.5 L MCV MCH MCHC RDW Plt Count ABG pH 7.253 L ABG pCO2 54.5 ABG pO2 79.6 L ABG HCO3 23.5 ABG O2 Saturation 94.1 L ABG Base Excess -3.6 L ABG Hemoglobin 8.1 L ABG Carboxyhemoglobin 0.4 ABG Methemoglobin 0.1 Oxyhemoglobin 93.6 L Sodium Potassium Chloride Carbon Dioxide Anion Gap BUN Creatinine Estimated GFR BUN/Creatinine Ratio Glucose POC Glucose 125 H Calcium Phosphorus Magnesium Random Vancomycin Blood Type Antibody Screen Crossmatch 04/12/21 04/12/21 04/12/21 04:30 04:30 04:30 WBC 17.5 H RBC 2.68 L Hgb 7.6 L Hct 24.0 L MCV 89 MCH 28 MCHC 32 RDW 18.0 H Plt Count 140 ABG pH ABG pCO2 ABG pO2 ABG HCO3 ABG O2 Saturation ABG Base Excess ABG Hemoglobin ABG Carboxyhemoglobin ABG Methemoglobin Oxyhemoglobin Sodium 139 Potassium 4.9 Chloride 100.5 Carbon Dioxide 22 Anion Gap 21 BUN 87 H Creatinine 4.5 H Estimated GFR 14 BUN/Creatinine Ratio 19 Glucose 136 H POC Glucose Calcium 8.8 Phosphorus 6.50 H Magnesium 2.20 Random Vancomycin 13.6 Blood Type Antibody Screen Crossmatch 04/12/21 05:41 WBC RBC Hgb Hct MCV MCH MCHC RDW Plt Count ABG pH ABG pCO2 ABG pO2 ABG HCO3 ABG O2 Saturation ABG Base Excess ABG Hemoglobin ABG Carboxyhemoglobin ABG Methemoglobin Oxyhemoglobin Sodium Potassium Chloride Carbon Dioxide Anion Gap BUN Creatinine Estimated GFR BUN/Creatinine Ratio Glucose POC Glucose 115 H Calcium Phosphorus Magnesium Random Vancomycin Blood Type Antibody Screen Crossmatch Medications & Allergies - Medications Allergies/Adverse Reactions: Allergies oxycodone HCl [From Percocet] Allergy (Severe, Verified 03/30/21 14:01) Swelling cefepime Allergy (Verified 04/06/21 13:38) Rash hydrocodone bitartrate [From Vicodin] Allergy (Verified 03/31/21 08:20) Swelling ALLERGY TO TYLENOL VS OXYCODONE ACTIVE ORDER REMOVED FROM MAR SINCE UNABLE TO CONFIRM WITH FAMILY Home Medications: Home Medications Medication Instructions Recorded Confirmed Last Taken Type Chlorhexidine Mouthwash [Peridex] 15 ml MM BID #1 bottle 10/11/20 03/13/21 Unknown Rx Clindamycin [Clindamycin CAP] 300 mg PO Q8H #21 cap 10/11/20 03/13/21 Unknown Rx Naproxen 500 mg PO Q12H PRN #12 tablet 10/11/20 03/13/21 Unknown Rx Butalb/Acetamin/Caff 50-325-40 1 - 2 tab PO Q6HR PRN #15 tab 12/05/20 03/13/21 Unknown Rx [Fioricet 50-325-40] Famotidine [Pepcid] 20 mg PO BID #30 tablet 12/05/20 03/13/21 Unknown Rx Ketorolac [Toradol] 10 mg PO Q8H PRN #20 tablet 12/05/20 03/13/21 Unknown Rx Ondansetron [Zofran Odt] 4 mg PO Q6HR PRN #20 tab.rapdis 12/05/20 03/13/21 Unknown Rx Albuterol Sulfate [Proair 90 mcg IH Q4HR PRN #2 [email or web address] 01/01/21 03/13/21 Unknown Rx Respiclick] Mupirocin [Bactroban 2% OINT] 1 applic TP BID 7 Days #1 tube 01/01/21 03/13/21 Unknown Rx Triamcinolone Aceton 0.1% (Nf) 1 applic TP BID 14 Days #1 tube 01/01/21 03/13/21 Unknown Rx [Kenalog (NF)] predniSONE [Deltasone] 40 mg PO QDAY #8 tab 01/01/21 03/13/21 Unknown Rx Active Medications: Generic Name Dose Route Start Last Admin Trade Name Freq PRN Reason Stop Dose Admin Acetaminophen 650 mg 03/31/21 12:41 04/12/21 08:12 Acetaminophen 325 Mg/10.15 Ml Oral Liqd Unit Dose FEEDTUBE 650 mg Q6H PRN Administration TEMP >/=100.4 Albumin Human 25 gm 04/01/21 08:19 04/01/21 16:23 Albumin Human 25% (25 Gm/100 Ml) Inj IV 25 gm KARLOS PRN Administration Hypotension Albuterol 2.5 mg 03/19/21 00:53 Albuterol 2.5 Mg/3 Ml Nebu IH Q4HRT PRN Shortness Of Breath Albuterol/Ipratropium 1 ampul 03/19/21 08:00 04/12/21 02:41 Ipratropium/Albuterol Sulfate 3 Ml Ampul.Neb IH 1 ampul Q6HRT INESSA Administration Lipase/Protease/Amylase 1 each 04/09/21 17:17 Lipase 10,500/Protease 25,000/Amylase 43,750 (Units) Dr White FEEDTUBE PRN PRN For Clogged Feeding Tube Ascorbic Acid 500 mg 03/14/21 22:00 04/11/21 21:50 Ascorbic Acid 500 Mg Tab PO 500 mg BID INESSA Administration Calcium Acetate 1,334 mg 04/03/21 20:00 04/12/21 08:13 Calcium Acetate 667 Mg Cap FEEDTUBE 1,334 mg TID INESSA Administration Dextrose 50 ml 03/14/21 11:02 03/15/21 11:40 Dextrose 50% In Water (25gm) 50 Ml Syringe IV 50 ml Q30MIN PRN Administration Hypoglycemia Protocol Famotidine 10 mg 03/17/21 22:00 04/11/21 21:50 Famotidine 10 Mg Tab PO 10 mg BID INESSA Administration Fentanyl 50 mcg 03/15/21 10:43 04/05/21 21:32 Fentanyl 100 Mcg/2 Ml Inj IV 50 mcg Q10MIN PRN Administration ANALGESIA Hydrocortisone Sodium Succinate 100 mg 04/10/21 00:00 04/12/21 08:14 Hydrocortisone Sod Succ 100 Mg/2 Ml Vial IV 100 mg Q8H INESSA Administration Hydromorphone HCl 1 mg 04/06/21 11:32 04/06/21 17:01 Hydromorphone 1 Mg/1 Ml Inj IV 04/13/21 11:31 1 mg Q4H PRN Administration Pain , Severe (7-10) Hydrophilic Ointment 1 applic 03/14/21 17:50 Lip Therapy Vaseline TP Q2HR PRN Dry Lips Fentanyl Citrate 2,000 mcg in 100 mls @ 6.872 mls/hr 03/15/21 11:00 04/12/21 07:44 Fentanyl Drip Premix IV 4 mcg/kg/hr TITR INESSA 27.488 mls/hr Administration Protocol 1 MCG/KG/HR Sodium Chloride 500 mls @ 1 mls/hr 03/16/21 17:19 Nacl 0.9% 500 Ml IV DIRECT PRN ARTERIAL LINE FLUSH Midazolam HCl 100 mg/ Sodium 100 mls @ 1 mls/hr 03/30/21 15:00 04/11/21 17:36 Chloride IV 6 mg/hr TITR INESSA 6 mls/hr Administration Protocol 1 MG/HR Vasopressin 20 unit/ Sodium 101 mls @ 9.09 mls/hr 03/30/21 20:00 04/11/21 16:15 Chloride IV 0 units/min TITR INESSA 0 mls/hr Infusion 0.03 UNITS/MIN Phenylephrine HCl 100 mg/ 100 mls @ 3 mls/hr 03/31/21 04:00 04/06/21 07:58 Sodium Chloride IV 0 mcg/min TITR INESSA 0 mls/hr Titration Protocol 50 MCG/MIN Sodium Chloride 100 mls @ 999 mls/hr 04/01/21 08:19 Nacl 0.9% IV KARLOS PRN Hypotension Sodium Bicarbonate 150 meq/ 1,150 mls @ 75 mls/hr 04/02/21 22:00 04/07/21 16:21 Dextrose IV Infused DIRECT INESSA Infusion Levofloxacin/Dextrose 750 mg in 150 mls @ 100 mls/hr 04/06/21 14:30 04/10/21 14:04 Levaquin 750mg/150ml IV 100 mls/hr Q48H INESSA Administration Protocol Propofol 1,000 mg in 100 mls @ 4.26 mls/hr 04/07/21 13:00 04/12/21 07:46 Diprivan 10 Mg/Ml IV 15 mcg/kg/min TITR INESSA 12.78 mls/hr Administration Protocol 5 MCG/KG/MIN Meropenem 500 mg in 50 mls @ 50 mls/hr 04/08/21 11:00 04/11/21 23:45 Merrem/Ns 500 Mg/50 Ml IV 50 mls/hr Q12H INESSA Administration Micafungin Sodium 100 mg/ 100 mls @ 100 mls/hr 04/09/21 17:00 04/11/21 16:22 Sodium Chloride IV 100 mls/hr Q24H INESSA Administration Protocol Sodium Chloride 500 mls @ 0 mls/hr 04/11/21 12:49 04/11/21 13:13 Nacl 0.9% 500 Ml IV 5 mls/hr ONCE INESSA Administration As Directed Norepinephrine 8 mg/ Sodium 8 mg in 258 mls @ 3.87 mls/hr 04/12/21 04:00 Chloride IV TITRATE INESSA Protocol 2 MCG/MIN Insulin Human Lispro 0 unit 03/14/21 12:00 04/12/21 05:43 Insulin Lispro 100 Unit/Ml SUB-Q Not Given Q6HR INESSA Protocol Lorazepam 1 mg 03/13/21 19:40 03/30/21 19:58 Lorazepam 2 Mg/Ml Vial IV 1 mg Q4H PRN Administration Anxiety Multi-Ingred Cream/Lotion/Oil/Oint 1 applic 03/14/21 17:50 04/10/21 22:03 Mineral Oil/Petrolatum, White Ophth Oint 3.5 Gm OU 1 applic Q4HR PRN Administration Dry Eye(s) Ondansetron HCl 4 mg 03/13/21 19:30 03/21/21 12:05 Ondansetron 4 Mg/2 Ml Inj IV 4 mg Q8H PRN Administration Nausea And Vomiting Quetiapine Fumarate 300 mg 04/06/21 22:00 04/11/21 21:51 Quetiapine 100 Mg Tab PO 300 mg BID INESSA Administration Senna/Docusate Sodium 1 tab 03/14/21 22:00 04/11/21 21:50 Sennosides/Docusate Sodium 8.6/50 Mg Tab FEEDTUBE 1 tab BID INESSA Administration Simple Syrup 15 ml 04/09/21 17:17 Simple Syrup 15 Ml FEEDTUBE PRN PRN Hypoglycemia Simple Syrup 30 ml 04/09/21 17:17 Simple Syrup 15 Ml FEEDTUBE PRN PRN Hypoglycemia Sodium Bicarbonate 325 mg 03/15/21 11:42 03/21/21 17:21 Sodium Bicarbonate 325 Mg Tab FEEDTUBE 325 mg PRN PRN Administration For Clogged Feeding Tube Sodium Bicarbonate 325 mg 04/09/21 17:17 Sodium Bicarbonate 325 Mg Tab FEEDTUBE PRN PRN For Clogged Feeding Tube Sodium Chloride 10 ml 03/13/21 22:00 04/11/21 21:51 Sodium Chloride 0.9% 10 Ml Flush Syringe IV 10 ml BID INESSA Administration Sodium Chloride 10 ml 03/13/21 19:30 Sodium Chloride 0.9% 10 Ml Flush Syringe IV PRN PRN LINE FLUSH Zinc Sulfate 220 mg 03/14/21 22:00 04/11/21 21:50 Zinc Sulfate 220 Mg Cap PO 220 mg BID INESSA Administration
--- NOTE | 2021-04-12 09:13 | Progress Note ---
Assessment and Plan #Acute kidney injury: dialysis dependent - s/p HD on 04/10, did have UF of 3L - will benefit from daily dialysis if tolerated, - daily lytes - Assess daily for needs for additional sessions pending hemodynamic stability - Strict input and output - Avoid nephrotoxins - Renally dose medications - Keep MAP > 65 #Hyperkalemia: K stable today #Respiratory failure Covid 19 infection currently intubated UF as tolerated with HD, limited by hemodynamic instability #Hyperphosphatemia to be monitored Dialysis has been initiated #Hyponatremia: stable #Anemia--Hematology plans noted, plasma exchange noted #Overall prognosis remains poor, palliative care appropriate Patient is tachycardic this morning with heart rate in the 130s. Shall attempt dialysis when she is more stable. Discussed with dialysis nurse Subjective Date of service: 04/12/21 Principal diagnosis: Ac hypoxemic resp failure; AE-Asthma; SAI; Crohn's; Pneumonia Interval history: Patient remains in the ICU. She is currently on the ventilator. On 70% FiO2. Oxygen saturation is 97%. Patient is currently on 1 pressor. Objective - Vital Signs Vital signs: Vital Signs - 12hr 04/11/21 04/11/21 04/11/21 21:15 21:31 21:45 Temperature Pulse Rate 105 H 106 H 108 H Pulse Rate [ Anterior Bilateral Throughout] Pulse Rate [ From Monitor] Respiratory 30 H 30 H 30 H Rate Respiratory Rate [Anterior Bilateral Throughout] Blood Pressure O2 Sat by Pulse 98 98 97 Oximetry 04/11/21 04/11/21 04/11/21 22:01 22:15 22:31 Temperature Pulse Rate 112 H 115 H 119 H Pulse Rate [ Anterior Bilateral Throughout] Pulse Rate [ From Monitor] Respiratory 31 H 30 H 30 H Rate Respiratory Rate [Anterior Bilateral Throughout] Blood Pressure O2 Sat by Pulse 96 96 96 Oximetry 04/11/21 04/11/21 04/11/21 22:45 23:00 23:15 Temperature Pulse Rate 117 H 116 H 117 H Pulse Rate [ Anterior Bilateral Throughout] Pulse Rate [ From Monitor] Respiratory 30 H 30 H 30 H Rate Respiratory Rate [Anterior Bilateral Throughout] Blood Pressure O2 Sat by Pulse 96 97 97 Oximetry 04/11/21 04/11/21 04/11/21 23:31 23:35 23:45 Temperature Pulse Rate 129 H 128 H 129 H Pulse Rate [ Anterior Bilateral Throughout] Pulse Rate [ From Monitor] Respiratory 30 H 31 H 24 Rate Respiratory Rate [Anterior Bilateral Throughout] Blood Pressure O2 Sat by Pulse 96 96 97 Oximetry 04/12/21 04/12/21 04/12/21 00:00 00:01 00:14 Temperature 101.3 F H Pulse Rate 119 H 129 H 121 H Pulse Rate [ Anterior Bilateral Throughout] Pulse Rate [ 115 H From Monitor] Respiratory 30 H 30 H Rate Respiratory Rate [Anterior Bilateral Throughout] Blood Pressure 108/54 O2 Sat by Pulse 100 91 97 Oximetry 04/12/21 04/12/21 04/12/21 00:15 00:31 00:45 Temperature Pulse Rate 121 H 122 H 119 H Pulse Rate [ Anterior Bilateral Throughout] Pulse Rate [ From Monitor] Respiratory 23 22 19 Rate Respiratory Rate [Anterior Bilateral Throughout] Blood Pressure O2 Sat by Pulse 97 98 99 Oximetry 04/12/21 04/12/21 04/12/21 01:01 01:15 01:31 Temperature Pulse Rate 118 H 120 H 118 H Pulse Rate [ Anterior Bilateral Throughout] Pulse Rate [ From Monitor] Respiratory 19 16 15 Rate Respiratory Rate [Anterior Bilateral Throughout] Blood Pressure O2 Sat by Pulse 99 99 99 Oximetry 04/12/21 04/12/21 04/12/21 01:45 02:01 02:15 Temperature Pulse Rate 126 H 130 H 131 H Pulse Rate [ Anterior Bilateral Throughout] Pulse Rate [ From Monitor] Respiratory 31 H 19 Rate Respiratory Rate [Anterior Bilateral Throughout] Blood Pressure O2 Sat by Pulse 100 98 99 Oximetry 04/12/21 04/12/21 04/12/21 02:31 02:37 02:45 Temperature Pulse Rate 130 H 132 H Pulse Rate [ 130 H Anterior Bilateral Throughout] Pulse Rate [ From Monitor] Respiratory 17 17 Rate Respiratory 33 H Rate [Anterior Bilateral Throughout] Blood Pressure O2 Sat by Pulse 95 93 Oximetry 04/12/21 04/12/21 04/12/21 03:01 03:15 03:31 Temperature Pulse Rate 131 H 130 H 126 H Pulse Rate [ Anterior Bilateral Throughout] Pulse Rate [ From Monitor] Respiratory 18 19 21 Rate Respiratory Rate [Anterior Bilateral Throughout] Blood Pressure O2 Sat by Pulse 96 85 100 Oximetry 04/12/21 04/12/21 04/12/21 03:45 04:00 04:01 Temperature 102.0 F H Pulse Rate 126 H 125 H 128 H Pulse Rate [ Anterior Bilateral Throughout] Pulse Rate [ 115 H From Monitor] Respiratory 19 30 H 24 Rate Respiratory Rate [Anterior Bilateral Throughout] Blood Pressure O2 Sat by Pulse 99 100 100 Oximetry 04/12/21 04/12/21 04/12/21 04:15 04:18 04:31 Temperature Pulse Rate 130 H 128 H 130 H Pulse Rate [ Anterior Bilateral Throughout] Pulse Rate [ From Monitor] Respiratory 22 22 Rate Respiratory Rate [Anterior Bilateral Throughout] Blood Pressure 146/82 O2 Sat by Pulse 99 100 98 Oximetry 04/12/21 04/12/21 04/12/21 04:45 05:01 05:15 Temperature Pulse Rate 130 H 127 H 126 H Pulse Rate [ Anterior Bilateral Throughout] Pulse Rate [ From Monitor] Respiratory 21 18 17 Rate Respiratory Rate [Anterior Bilateral Throughout] Blood Pressure O2 Sat by Pulse 100 100 100 Oximetry 04/12/21 04/12/21 04/12/21 05:30 05:45 06:01 Temperature Pulse Rate 126 H 126 H 126 H Pulse Rate [ Anterior Bilateral Throughout] Pulse Rate [ From Monitor] Respiratory 16 16 16 Rate Respiratory Rate [Anterior Bilateral Throughout] Blood Pressure O2 Sat by Pulse 100 100 100 Oximetry 04/12/21 04/12/21 04/12/21 06:15 06:31 06:45 Temperature Pulse Rate 126 H 129 H 126 H Pulse Rate [ Anterior Bilateral Throughout] Pulse Rate [ From Monitor] Respiratory 16 20 16 Rate Respiratory Rate [Anterior Bilateral Throughout] Blood Pressure O2 Sat by Pulse 100 100 100 Oximetry 04/12/21 04/12/21 04/12/21 07:01 07:15 07:31 Temperature Pulse Rate 128 H 130 H 130 H Pulse Rate [ Anterior Bilateral Throughout] Pulse Rate [ From Monitor] Respiratory 17 19 17 Rate Respiratory Rate [Anterior Bilateral Throughout] Blood Pressure O2 Sat by Pulse 100 100 100 Oximetry 04/12/21 04/12/21 04/12/21 07:45 08:00 08:01 Temperature 103.1 F H Pulse Rate 132 H 135 H 136 H Pulse Rate [ Anterior Bilateral Throughout] Pulse Rate [ 138 H From Monitor] Respiratory 18 40 H 16 Rate Respiratory Rate [Anterior Bilateral Throughout] Blood Pressure O2 Sat by Pulse 100 97 96 Oximetry 04/12/21 04/12/21 04/12/21 08:15 08:31 08:45 Temperature Pulse Rate 137 H 139 H 137 H Pulse Rate [ Anterior Bilateral Throughout] Pulse Rate [ From Monitor] Respiratory 16 17 24 Rate Respiratory Rate [Anterior Bilateral Throughout] Blood Pressure O2 Sat by Pulse 96 94 97 Oximetry 04/12/21 04/12/21 08:53 09:01 Temperature Pulse Rate 135 H Pulse Rate [ 135 H Anterior Bilateral Throughout] Pulse Rate [ From Monitor] Respiratory 18 Rate Respiratory 33 H Rate [Anterior Bilateral Throughout] Blood Pressure O2 Sat by Pulse 98 Oximetry - General Appearance General appearance: well-developed, well-nourished, appears stated age, intubated EENT: ATNC, PERRL Neck: other (Right IJ Vas-Cath in place) Respiratory: Present: Other (Coarse breath sounds bilaterally) Cardiology: regular, normal heart rate Gastrointestinal: normal, normoactive bowel sounds Integumentary: other (2-3+ pitting edema bilaterally) - Lab 04/12/21 04:30 04/12/21 04:30 Most recent lab results ABG pH 7.253 pH Units (7.350-7.450) L 04/12/21 02:52 ABG pCO2 54.5 mm Hg 04/12/21 02:52 ABG pO2 79.6 mm Hg (80.0-90.0) L 04/12/21 02:52 ABG HCO3 23.5 mmol/L (20.0-26.0) 04/12/21 02:52 ABG O2 Saturation 94.1 % (95.0-99.0) L 04/12/21 02:52 Calcium 8.8 mg/dL (8.4-10.2) 04/12/21 04:30 Phosphorus 6.50 mg/dL (2.5-4.5) H 04/12/21 04:30 Magnesium 2.20 mg/dL (1.7-2.3) 04/12/21 04:30 Urine Creatinine 40.1 mg/dL (0.1-20.0) H 03/14/21 17:50 Urine Sodium 124 mmol/L 03/14/21 17:50 Medications & Allergies - Medications Allergies/Adverse Reactions: Allergies oxycodone HCl [From Percocet] Allergy (Severe, Verified 03/30/21 14:01) Swelling cefepime Allergy (Verified 04/06/21 13:38) Rash hydrocodone bitartrate [From Vicodin] Allergy (Verified 03/31/21 08:20) Swelling ALLERGY TO TYLENOL VS OXYCODONE ACTIVE ORDER REMOVED FROM [facility] SINCE UNABLE TO CONFIRM WITH FAMILY Home Medications: Home Medications Medication Instructions Recorded Confirmed Last Taken Type Chlorhexidine Mouthwash [Peridex] 15 ml MM BID #1 bottle 10/11/20 03/13/21 Unknown Rx Clindamycin [Clindamycin CAP] 300 mg PO Q8H #21 cap 10/11/20 03/13/21 Unknown Rx Naproxen 500 mg PO Q12H PRN #12 tablet 10/11/20 03/13/21 Unknown Rx Butalb/Acetamin/Caff 50-325-40 1 - 2 tab PO Q6HR PRN #15 tab 12/05/20 03/13/21 Unknown Rx [Fioricet 50-325-40] Famotidine [Pepcid] 20 mg PO BID #30 tablet 12/05/20 03/13/21 Unknown Rx Ketorolac [Toradol] 10 mg PO Q8H PRN #20 tablet 12/05/20 03/13/21 Unknown Rx Ondansetron [Zofran Odt] 4 mg PO Q6HR PRN #20 tab.rapdis 12/05/20 03/13/21 Unknown Rx Albuterol Sulfate [Proair 90 mcg IH Q4HR PRN #2 [email or web address] 01/01/21 03/13/21 Unknown Rx Respiclick] Mupirocin [Bactroban 2% OINT] 1 applic TP BID 7 Days #1 tube 01/01/21 03/13/21 Unknown Rx Triamcinolone Aceton 0.1% (Nf) 1 applic TP BID 14 Days #1 tube 01/01/21 03/13/21 Unknown Rx [Kenalog (NF)] predniSONE [Deltasone] 40 mg PO QDAY #8 tab 01/01/21 03/13/21 Unknown Rx Active Medications: Generic Name Dose Route Start Last Admin Trade Name Freq PRN Reason Stop Dose Admin Acetaminophen 650 mg 03/31/21 12:41 04/12/21 08:12 Acetaminophen 325 Mg/10.15 Ml Oral Liqd Unit Dose FEEDTUBE 650 mg Q6H PRN Administration TEMP >/=100.4 Albumin Human 25 gm 04/01/21 08:19 04/01/21 16:23 Albumin Human 25% (25 Gm/100 Ml) Inj IV 25 gm KARLOS PRN Administration Hypotension Albuterol 2.5 mg 03/19/21 00:53 Albuterol 2.5 Mg/3 Ml Nebu IH Q4HRT PRN Shortness Of Breath Albuterol/Ipratropium 1 ampul 03/19/21 08:00 04/12/21 08:53 Ipratropium/Albuterol Sulfate 3 Ml Ampul.Neb IH 1 ampul Q6HRT INESSA Administration Lipase/Protease/Amylase 1 each 04/09/21 17:17 Lipase 10,500/Protease 25,000/Amylase 43,750 (Units) Dr Cap FEEDTUBE PRN PRN For Clogged Feeding Tube Ascorbic Acid 500 mg 03/14/21 22:00 04/11/21 21:50 Ascorbic Acid 500 Mg Tab PO 500 mg BID INESSA Administration Calcium Acetate 1,334 mg 04/03/21 20:00 04/12/21 08:13 Calcium Acetate 667 Mg Cap FEEDTUBE 1,334 mg TID INESSA Administration Dextrose 50 ml 03/14/21 11:02 03/15/21 11:40 Dextrose 50% In Water (25gm) 50 Ml Syringe IV 50 ml Q30MIN PRN Administration Hypoglycemia Protocol Famotidine 10 mg 03/17/21 22:00 04/11/21 21:50 Famotidine 10 Mg Tab PO 10 mg BID INESSA Administration Fentanyl 50 mcg 03/15/21 10:43 04/05/21 21:32 Fentanyl 100 Mcg/2 Ml Inj IV 50 mcg Q10MIN PRN Administration ANALGESIA Hydrocortisone Sodium Succinate 100 mg 04/10/21 00:00 04/12/21 08:14 Hydrocortisone Sod Succ 100 Mg/2 Ml Vial IV 100 mg Q8H INESSA Administration Hydromorphone HCl 1 mg 04/06/21 11:32 04/06/21 17:01 Hydromorphone 1 Mg/1 Ml Inj IV 04/13/21 11:31 1 mg Q4H PRN Administration Pain , Severe (7-10) Hydrophilic Ointment 1 applic 03/14/21 17:50 Lip Therapy Vaseline TP Q2HR PRN Dry Lips Fentanyl Citrate 2,000 mcg in 100 mls @ 6.872 mls/hr 03/15/21 11:00 04/12/21 07:44 Fentanyl Drip Premix IV 4 mcg/kg/hr TITR INESSA 27.488 mls/hr Administration Protocol 1 MCG/KG/HR Sodium Chloride 500 mls @ 1 mls/hr 03/16/21 17:19 Nacl 0.9% 500 Ml IV DIRECT PRN ARTERIAL LINE FLUSH Midazolam HCl 100 mg/ Sodium 100 mls @ 1 mls/hr 03/30/21 15:00 04/11/21 17:36 Chloride IV 6 mg/hr TITR INESSA 6 mls/hr Administration Protocol 1 MG/HR Vasopressin 20 unit/ Sodium 101 mls @ 9.09 mls/hr 03/30/21 20:00 04/11/21 16:15 Chloride IV 0 units/min TITR INESSA 0 mls/hr Infusion 0.03 UNITS/MIN Phenylephrine HCl 100 mg/ 100 mls @ 3 mls/hr 03/31/21 04:00 04/06/21 07:58 Sodium Chloride IV 0 mcg/min TITR INESSA 0 mls/hr Titration Protocol 50 MCG/MIN Sodium Chloride 100 mls @ 999 mls/hr 04/01/21 08:19 Nacl 0.9% IV KARLOS PRN Hypotension Sodium Bicarbonate 150 meq/ 1,150 mls @ 75 mls/hr 04/02/21 22:00 04/07/21 16:21 Dextrose IV Infused DIRECT INESSA Infusion Levofloxacin/Dextrose 750 mg in 150 mls @ 100 mls/hr 04/06/21 14:30 04/10/21 14:04 Levaquin 750mg/150ml IV 100 mls/hr Q48H INESSA Administration Protocol Propofol 1,000 mg in 100 mls @ 4.26 mls/hr 04/07/21 13:00 04/12/21 07:46 Diprivan 10 Mg/Ml IV 15 mcg/kg/min TITR INESSA 12.78 mls/hr Administration Protocol 5 MCG/KG/MIN Meropenem 500 mg in 50 mls @ 50 mls/hr 04/08/21 11:00 04/11/21 23:45 Merrem/Ns 500 Mg/50 Ml IV 50 mls/hr Q12H INESSA Administration Micafungin Sodium 100 mg/ 100 mls @ 100 mls/hr 04/09/21 17:00 04/11/21 16:22 Sodium Chloride IV 100 mls/hr Q24H INESSA Administration Protocol Sodium Chloride 500 mls @ 0 mls/hr 04/11/21 12:49 04/11/21 13:13 Nacl 0.9% 500 Ml IV 5 mls/hr ONCE INESSA Administration As Directed Norepinephrine 8 mg/ Sodium 8 mg in 258 mls @ 3.87 mls/hr 04/12/21 04:00 Chloride IV TITRATE INESSA Protocol 2 MCG/MIN Insulin Human Lispro 0 unit 03/14/21 12:00 04/12/21 05:43 Insulin Lispro 100 Unit/Ml SUB-Q Not Given Q6HR [facility] Protocol Lorazepam 1 mg 03/13/21 19:40 03/30/21 19:58 Lorazepam 2 Mg/Ml Vial IV 1 mg Q4H PRN Administration Anxiety Multi-Ingred Cream/Lotion/Oil/Oint 1 applic 03/14/21 17:50 04/10/21 22:03 Mineral Oil/Petrolatum, White Ophth Oint 3.5 Gm OU 1 applic Q4HR PRN Administration Dry Eye(s) Ondansetron HCl 4 mg 03/13/21 19:30 03/21/21 12:05 Ondansetron 4 Mg/2 Ml Inj IV 4 mg Q8H PRN Administration Nausea And Vomiting Quetiapine Fumarate 300 mg 04/06/21 22:00 04/11/21 21:51 Quetiapine 100 Mg Tab PO 300 mg BID INESSA Administration Senna/Docusate Sodium 1 tab 03/14/21 22:00 04/11/21 21:50 Sennosides/Docusate Sodium 8.6/50 Mg Tab FEEDTUBE 1 tab BID INESSA Administration Simple Syrup 15 ml 04/09/21 17:17 Simple Syrup 15 Ml FEEDTUBE PRN PRN Hypoglycemia Simple Syrup 30 ml 04/09/21 17:17 Simple Syrup 15 Ml FEEDTUBE PRN PRN Hypoglycemia Sodium Bicarbonate 325 mg 03/15/21 11:42 03/21/21 17:21 Sodium Bicarbonate 325 Mg Tab FEEDTUBE 325 mg PRN PRN Administration For Clogged Feeding Tube Sodium Bicarbonate 325 mg 04/09/21 17:17 Sodium Bicarbonate 325 Mg Tab FEEDTUBE PRN PRN For Clogged Feeding Tube Sodium Chloride 10 ml 03/13/21 22:00 04/11/21 21:51 Sodium Chloride 0.9% 10 Ml Flush Syringe IV 10 ml BID INESSA Administration Sodium Chloride 10 ml 03/13/21 19:30 Sodium Chloride 0.9% 10 Ml Flush Syringe IV PRN PRN LINE FLUSH Zinc Sulfate 220 mg 03/14/21 22:00 04/11/21 21:50 Zinc Sulfate 220 Mg Cap PO 220 mg BID INESSA Administration
[2021-04-12] MEDS: SENNOSIDES/DOCUSATE SODIUM 8.6/50 MG TAB FEEDTUBE SCH ×2 (09:16→22:01)
[2021-04-12] MEDS: ASCORBIC ACID 500 MG TAB PO SCH ×2 (09:17→22:41)
[2021-04-12] MEDS: QUEtiapine 100 MG TAB PO SCH ×2 (09:17→22:01)
[2021-04-12] MEDS: FAMOTIDINE 10 MG TAB PO SCH ×2 (09:17→22:01)
[2021-04-12] MEDS: ZINC SULFATE 220 MG CAP PO SCH ×2 (09:25→22:02)
[2021-04-12] MEDS: VASOPRESSIN 20 UNIT in SODIUM CHLORIDE 0.9% 100 ML IV SCH ×2 (10:01→20:37)
[2021-04-12] MEDS: MIDAZOLAM 100 MG in SODIUM CHLORIDE 0.9% 80 ML IV SCH (10:48)
--- NOTE | 2021-04-12 15:24 | Progress Note ---
Assessment and Plan Cultures: SARS CoV2 PCR: Positive 03/13/2021 blood culture: No growth Resp cultures 03/14/2021: MSSA 03/23/2021 blood culture: No growth 03/23/2021 sputum culture: Usual respiratory maury 03/29/2021 blood culture: no growth 04/06/2021 blood culture: In process 04/06/2021 endotracheal aspirate culture: E faecalis 04/06/2021 urine culture: No growth A/P: 31-year-old female with asthma, morbid obesity, Crohn's disease admitted with cough and shortness of breath: #Septic shock: s/p abx. Persistently febrile, on multiple pressors. Has previously completed Ancef followed by Cefepime, and now on Aztreonam, Vancomycin and levofloxacin. #Bilateral pneumonia: Secondary to COVID-19. Severe disease, then developed MSSA in the lungs. s/p Actemra 03/15/2021, completed steroids for COVID. D-dimer very high initially, which has shown improvement. #Acute hypoxic respiratory failure: on the vent. #Rash with eosinophilia: Question of drug reaction, remains off Cefepime. 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 #Acute renal failure: progressive. Nephrology following, on HD. #Acute asthma exacerbation #Morbid obesity Recs: -f/u new cultures: blood culture -Continue micafungin -Continue vancomycin goal trough 10-20 -Continue meropenem -Stop Levaquin -on steroids per ICU -consider CT chest, abdomen and pelvis when feasible -extremely poor prognosis Champ Ling MD [facility] O: [phone] F: [phone] Subjective Date of service: 04/12/21 Principal diagnosis: Ac hypoxemic resp failure; AE-Asthma; SAI; Crohn's; Pneumonia Interval history: Persistently febrile to 103.1 with a white count of 17.5. New cultures all no growth so far. Imaging personally reviewed: Chest x-ray: Mild improvement in bilateral disease. Objective - Exam Narrative Exam: Physical exam deferred to reduce risk of transmission of COVID-19. Please refer to primary team's note. - Constitutional Vitals: Vital Signs Temp Pulse Resp BP Pulse Ox 101.5 F H 125 H 30 H 104/56 97 04/12/21 13:20 04/12/21 15:15 04/12/21 13:20 04/12/21 15:15 04/12/21 15:01 Temperature -Last 24 Hours Temperature 101.5 F Temperature 102.2 F Temperature 103.1 F Temperature 102.1 F Temperature 102.0 F Temperature 101.6 F Temperature 101.3 F Temperature 101.3 F Temperature 101.3 F Temperature 101.3 F Temperature 101.3 F Temperature 101.3 F Temperature 101.5 F Temperature 101.5 F Temperature 101.5 F Temperature 101.5 F Temperature 101.5 F Temperature 101.9 F - Labs CBC & Chem 7: 04/12/21 04:30 04/12/21 04:30 Labs: Abnormal lab results 04/08/21 04/11/21 04/11/21 Range/Units 13:55 13:39 17:49 WBC (4.5-11.0) K/mm3 RBC (3.65-5.03) M/mm3 Hgb (10.1-14.3) gm/dl Hct (30.3-42.9) % RDW (13.2-15.2) % ABG pH (7.350-7.450) pH Units ABG pO2 (80.0-90.0) mm Hg ABG O2 Saturation (95.0-99.0) % ABG Base Excess (-2.0-3.0) mmol/L ABG Hemoglobin (12.0-16.0) gm/dl Oxyhemoglobin (95.0-99.0) % BUN (7-17) mg/dL Creatinine (0.6-1.2) mg/dL Glucose (65-100) mg/dL POC Glucose 136 H (70-105) mg/dL Phosphorus (2.5-4.5) mg/dL Crossmatch See Detail See Detail 04/11/21 04/12/21 04/12/21 Range/Units 17:50 00:25 00:29 WBC (4.5-11.0) K/mm3 RBC (3.65-5.03) M/mm3 Hgb 6.5 L 7.4 L (10.1-14.3) gm/dl Hct 21.4 L 23.5 L (30.3-42.9) % RDW (13.2-15.2) % ABG pH (7.350-7.450) pH Units ABG pO2 (80.0-90.0) mm Hg ABG O2 Saturation (95.0-99.0) % ABG Base Excess (-2.0-3.0) mmol/L ABG Hemoglobin (12.0-16.0) gm/dl Oxyhemoglobin (95.0-99.0) % BUN (7-17) mg/dL Creatinine (0.6-1.2) mg/dL Glucose (65-100) mg/dL POC Glucose 125 H (70-105) mg/dL Phosphorus (2.5-4.5) mg/dL Crossmatch 04/12/21 04/12/21 04/12/21 Range/Units 02:52 04:30 04:30 WBC 17.5 H (4.5-11.0) K/mm3 RBC 2.68 L (3.65-5.03) M/mm3 Hgb 7.6 L (10.1-14.3) gm/dl Hct 24.0 L (30.3-42.9) % RDW 18.0 H (13.2-15.2) % ABG pH 7.253 L (7.350-7.450) pH Units ABG pO2 79.6 L (80.0-90.0) mm Hg ABG O2 Saturation 94.1 L (95.0-99.0) % ABG Base Excess -3.6 L (-2.0-3.0) mmol/L ABG Hemoglobin 8.1 L (12.0-16.0) gm/dl Oxyhemoglobin 93.6 L (95.0-99.0) % BUN 87 H (7-17) mg/dL Creatinine 4.5 H (0.6-1.2) mg/dL Glucose 136 H (65-100) mg/dL POC Glucose (70-105) mg/dL Phosphorus 6.50 H (2.5-4.5) mg/dL Crossmatch 04/12/21 04/12/21 Range/Units 05:41 11:57 WBC (4.5-11.0) K/mm3 RBC (3.65-5.03) M/mm3 Hgb (10.1-14.3) gm/dl Hct (30.3-42.9) % RDW (13.2-15.2) % ABG pH (7.350-7.450) pH Units ABG pO2 (80.0-90.0) mm Hg ABG O2 Saturation (95.0-99.0) % ABG Base Excess (-2.0-3.0) mmol/L ABG Hemoglobin (12.0-16.0) gm/dl Oxyhemoglobin (95.0-99.0) % BUN (7-17) mg/dL Creatinine (0.6-1.2) mg/dL Glucose (65-100) mg/dL POC Glucose 115 H 137 H (70-105) mg/dL Phosphorus (2.5-4.5) mg/dL Crossmatch
[2021-04-12] MEDS: NOREPINEPHRINE IV SCH ×2 (16:51→17:33)
[2021-04-12] MEDS: SODIUM CHLORIDE IV SCH ×2 (16:51→17:33)
--- NOTE | 2021-04-12 16:54 | Progress Note ---
Assessment and Plan Assessment and plan: This is a 31-year-old female with asthma, morbid obesity and Crohn's disease admitted for COVID-19 pneumonia and and acute renal failure Neuro: Sedated -Intubated and sedated with propofol, fentanyl, Versed -sedation to vent synchrony -Seroquel -As needed ECG for QTC monitoring -Daily SAT/SBT when appropriate -Maintain sleep-wake cycle -Avoid delirium CV: Tachycardia, s/p hypertension now with hypotension -ST on the monitor -Vasopressor support with levophed, vasopressin -Maintain MAP above 65 -Blood pressure monitoring via A-line Respiratory: Acute hypoxic respiratory failure, asthma exacerbation, COVID-19 pneumonia, ARDS, RUL PNA, bronchospasm (resolved) -DuoNeb, steroids -Patient was intubated on 03/14 for respiratory distress and inability to protect airway with her ETT exchange on 04/11 -Intubated with 7.50 ETT at 24 at the lip -A.m. vent settings: AC/PC FiO2 70%, inspiratory pressure 40, rate 30, PEEP 10 -See RT notes for titration -ABGs per CCM -VAP bundle -SPO2 monitoring -CCM/pulmonary consulted, appreciate recommendations -S/p BiPAP therapy -S/p Bronc on 04/11 which showed alveolar hemorrhage GI: transaminitis, h/o MO and Crohn's disease -Nutrition consulted, appreciate recommendations -Tube feeding: Nepro -Free water 100 mL every 4 hours -BR: [place] -PPI -24 hours +4401ml -HD removed 4 L on Monday -HD today removal of 1 L : Acute kidney injury likely secondary to ATN, hyperphosphatemia, hyperkalemia, hyponatremia, hypochloremia, metabolic acidosis -Nephrology consulted, appreciate recommendations -Vas-Cath placed 03/15 -HD initiated 03/15 -Daily weights -Strict intake and output -Avoid nephrotoxic medications -Renally dose medications -Trend BMP -Intervene for electrolytes as needed -HD per nephrology -Bicarb gtt ID: COVID-19 pneumonia, leukocytosis, Staph aureus in tracheal aspirate, Conjunctival hemorrhage, ?HUS vs drug reaction -Infectious disease consulted, appreciate recommendations -03/14 COVID-19 PCR (+), 04/10 COVID PCR (-) -1 g of methylprednisone for 3 days (03/31 through 04/02 with taper) -Restarted on stress dose steroids on 04/10 -s/p Actemra per ID -Per ID patient is on a candidate for remdesivir due to renal failure -Patient received 1 dose of remdesivir on 03/14 -Prophylactic anticoagulation based on D-dimer -s/p Cipro/Dex drops for 5 days -Abx per ID: Levaquin, Merrem, micafungin -Trend COVID-19 inflammatory markers -Isolation/droplet precautions for 21 days -Vitamin C/vitamin D/zinc -follow culture data -Monitor WBC and fever curve -s/p plasmapheresis x2 (04/01-04/02) -LDH 509, Eliezer pending, fibrinogen 491 -Artic sun for temp regulation Heme: Leukocytosis, elevated D-dimer -Trend CBC -Transfuse hemoglobin less than 7 -Eliquis restarted 03/29 -SCDs to bilateral lower extremity while in bed -BLE duplex US shows no DVT -HIT negative Endo: Hyperglycemia -Hemoglobin A1c 6.3 -SSI -Accu-Cheks every 6 -Avoid hypoglycemia The high probability of a clinically significant, sudden or life threatening deterioration of the [multiple] system(s) required my full and direct attention, intervention and personal management. The aggregate critical care time was [60] minutes. This time is in addition to time spent performing reported procedures but includes the following: [x] Data Review and interpretation [x] Patient assessment and monitoring of vital signs [x] Documentation [x] Medication orders and management Disposition Plan: ICU Total Time Spent with Patient (Minutes): 60 History Interval history: This is a 31-year-old female with asthma, history of prior intubation x1 in 02/2019, morbid obesity and Crohn's disease who presented to the emergency department on 03/13 with complaints of severe wheezing and shortness of breath over the past 4 days which is not relieved by home nebulizer treatments or r escue inhalers, cough without fever and no loss of sense of taste or smell. Patient is currently on vaccinated for COVID-19. In the emergency department patient was placed on BiPAP given steroids magnesium Solu-Medrol with improvement, CXR shows a streak of possible pneumonia. Patient was made a COVID-19 PUI and admitted to the hospital service. Patient was initially admitted to [facility] on BiPAP and was subsequently intubated due to severe respiratory distress and inability to protect her airway. Patient was admitted with acute hypoxic respiratory failure, acute asthma exacerbation, right upper lobe pneumonia, and as a COVID-19 PUI. Hospital Course to Date: 03/14/21- Patient is s/p intubation from this morning, sedated on propofol and fentanyl RASS -3 to -4. ETT above the clavicles advanced by 2cc. Continue nebs and IV steroids per [facility]. COVID swab pending. Hyperkalemia improved, X1 dose of kayaxalate ordered. Low BP and low urine output this am, fluid bolus challenge, 500cc of NS bolus given. Continue to monitor electrolytes and renal function, repeat BMP this afternoon. 03/15: Patient's renal function noted to be significantly worse today, patient was hyperkalemic and this was medically treated. Patient initiated on hemodialysis today. infectious disease was consulted today. 03/16: No acute events reported overnight, patient received hemodialysis yesterday. Patient is currently on propofol and fentanyl. 03/17: Patient received hemodialysis today, patient is slightly acidotic on ABG however [facility] is allowing for permissive hypercapnia, tracheal aspirate with Staph aureus and ID is aware. 03/18: Patient is having high residuals today and Reglan was started, patient w ill receive HD daily per nephrology, correct her change in FiO2 as tolerated. 03/19: HD per nephrology today, antibiotics changed to cefazolin. Patient did not tolerate tube feedings as she had high residuals this morning and they were turned off. Not restarted yet. Updated family at bedside today 03/20: HD today, ddimer noted to be >1000, Tolerating trickle TF. Stat BLE dopplar US 03/21: Patient is not tolerating TF, CXR shows worsening infiltrates, [facility] made changes to vent, TF on hold and started on IVF. 03/22/21- Patient remains intubated and on sedation. Persistent vomiting, TF held overnight, no documented BM, on reglan BR added, Shaun citarte & supp. HD today. Plan to restart TF at 10ml/hr, will reevaluate in the am. Persistent thrombocytopenia, Hep on hold, HIT panel ordered, PO eliquis initiated. 03/23/21- Patient remains on the vent and sedated on propofol and fentanyl RASS - 2 to -3. Possible SAT today as tolerated. Patient tolerated trickle feeds overnight, plan to advance TF by 10cc Q8 to 12hrs. Continue current BR and continue reglan for now. Slightr worsening in acidosis from this am, d/w [facility] vent setting adjusted, will repeat ABG at 9pm. 03/24/21- Patient is on the vent and sedated, on fentanyl and propfol. Bilateral subconjunctival hemorrhage with periorbital edema noted this am, pupils are round and reactive, will Cipro/Dex ICIR6opod. Worsening of kidney function from today's labs, plan for HD per Nephro. 03/25/21- Patient remains intubated and on sedatin, RASS 0 to -1, no longer on pressors. Sudden drop in H&H this am, bilateral subconjunctival hemorrhage with no sig change, no signs of any active bleeding. Patient appears neurologically intact, following commands, pupils are round and reactive with + gag and cough, moved all extremities. D/w [facility] patient is too unstable for CT at this time. Elidarienis D/Devaughn, 1unit of PRBC ordered. Will continue to trend CBC. Plan for another section of HD today 03/26/21- Patient remains on the vent and sedated. VENICE reported from overnight. Plan for HD again today. H&H back up and stable, no AC at this time, SCDs for VTE phro. D/w [facility] patient is still too unstable for CT scan, will continue neuro exam and will continue to monitor H&H. 03/27/21- VENICE overnight. remains on the vent and sedated. Red localized rashes noted in patient upper chest and face, will r/o allergic reaction,CBC with auto diff and urine eosinophils ordered. Plan for HD today per Nephro. 03/28/21- Patient remains on the vent and sedated. Persistent fevers overnight unrelieved with antipyretic, currently on a cooling blanket. Back on pressors for hypotension, patient already on IV abx, last blood cultureX2 and sputum culture from 03/23 were negative. Continue IV abx, will reculture patient, orders placed for B.culture and sputum culture. ID is also on consult. will continue F/u on culture and continue to monitor BMP and CBC. 03/29: Patient restarted on prednisone given splotchy rash, will resume apixaban for VTE prophylaxis and repeat ABG at 9 PM. Remains with leukocytosis, elevated BUN/creatinine, elevated triglycerides and on Levophed 03/30: HD today, rash is still present and started on IV steroids. plt is low today but will continue to monitor. [facility] made changes to vent-> decrease in MV. ABG in the pm and possible punch biopsy tomorrow if rash is not improved. propofol changed to versed 03/31: Heme/oncology consulted yesterday, will start patient on plasmapheresis for possible HUS. Cefepime discontinued today as today was the last day. Patient started on pulse dose steroids of 1 g/day for 3 days. Some improvement noted to eyes this morning. Patient was febrile overnight and received ibuprofen overnight. Acetaminophen allergy confirmed with family, allergy is only to oxycodone and hydrocodone but not the acetaminophen component. Confirmed by family patient has no reaction to [id number] Tylenol. Remains on vasopressor support and sedated with fentanyl, propofol and Versed. Vent mode changed to pressure control ventilation. Patient started on Arctic sun for fever control. Mother updated over telephone this a.m. and this p.m. family meeting held with her mother, sister x 2 and brother and with 2 other unknown people over the phone (1 female and one male) and nurse. Family states that patient is likely to an antibiotic possibly penicillins. This information was not available to us before. 04/01: Hyperkalemia medically treated, patient scheduled for dialysis today, plasmapheresis for possible HUS scheduled for today, steroids should be ending tomorrow, generalized rash/discoloration minimally better. Patient still remains on Arctic sun for temperature regulation. Vent changes per [facility]. 04/02: plasma exchange, tessa on sedatives and vasopressor support, HD for ultrafiltration 04/03: remains on artic sun but water temp noted to be in the 30s today. Completed plasmapheresis x2 and is now on steroid taper however minimal change noted to rash/discoloration. Eyes are more clear today but remain red under lids (tops of eye). Acidosis noted on ABG. Hyperkalemia and hyperphosphatemeia persists. Sedation increased for RR in to the 40s-50s and vasopressors being titrated as tolerated. 04/04: Patient receiving 1 unit PRBC per heme's recommendation, increased respiratory effort noted, patient is acidotic on ABG and given 1 amp of bicarb in addition to bicarb drip, sedation increased for vent synchrony. No HD per nephrology given tachycardia. Seroquel started. 04/05: Patient on the vent and sedated, still on 3 pressors. Patient to wean off propofol gtt, seroquel increased. Patient afebrile overnight, however artic sun is still in place. Will attempt to take off the cooling blanket today, will continue to assess for fever curve. Continue current IV Abx therapy per ID. Plan for HD today per Nephro. Patient's family at the bedside, thoroughly discussed patient's condition and overall poor prognosis. All questions and concerns were addressed. Team will continue to f/u with family with further updates. 04/06: Patient remains sedated and on the vent, still on fent and versed, propofol was weaned off. Low Hbg this am, 2 units of PRBCs ordered. Patient febrile overnight, patient completed IV abx course, leukocytosis downtrending. c/f for possible drug fever vs DVT, BLE doppler reordered to R/O DVT. Patient remains on high dose pressors, wean pressors as tolerated for MAP of 65. 04/07: Patient appears to be in distress thi am, tachypneic and tachycardic, with increased work of breathing. Propofol stopped this am. IV push versed given and versed gtt was increased to max. D/w CCM plan to possibly restart propofol since patient is not tolerating sedation wean. Patient remains febrile throughout, pancultured yesterday by ID and IV abx was restarted. Overall poor prognosis at this time. Patient's mother and siblings at the bedside were update on patient's status. Plan for possible family meeting with the care team Monday. 04/08: Patient with worsening CXR this am, increased of vent setting overnight, respiratory acidosis from this am ABG. Patient remains febrile, IV ABx switched to Merrem for VAP coverage, ID is following. Patient remains on sedation and on pressors. Low hemoglobin this am, 1unit of PRBCs ordered. Hyperkalemia noted, per Nephro it is stable no intervention at this time plan for HD tomorrow. Spoke with patient's mom, meeting postponed for possibly next week, case management to arrange. Hospitalist also called and updated patient's mother. Team will continue to follow up. 04/09: Patient condition remains unchanged, on the vent, on sedation, and on 2 pressors. Still febrile, on IV Abx, X1 set of fungal blood culture ordered. D/w ID recommended to start micafungin 100mg Qday. Hyperkalemic this am, plan for HD today. 04/10: VENICE overnight. Patient remains on the vent and sedated. Afebrile overnight, stress steroids added, pressors requirement is going down. HD overnight 3L out, plan for HD again today. Continue IV Abx and antifungal, F/u on culture data. 04/11: Patient remains on the vent and sedated, on minimal pressors this am. Tachycardic HR in the 130-140s this am. Per RN 4L out in HD yesterday, X1 dose of 25% Albumin given. Bloody drainage with clots also noted from patient nose, mouth, and ETT, Hbg 7 this am. Will hold AC for now, serial H&H ordered, transfuse if Hbg less than 7. 04/12: Patient was able to get HD today, Levaquin was stopped by ID. Consider CT chest/abdomen/pelvis when feasible per ID. Patient remains tachycardic. Was febrile most of the day however temperature decreased with icing and tylenol. Hospitalist Physical - Physical exam Narrative exam: General appearance: Present: no acute distress, well-nourished, obese, other (Intubated and sedated) - EENT Eyes: Present: PERRL ENT: dentition normal - Neck Neck: Absent: masses or JVD, cervical LAD - Respiratory Respiratory effort: normal Respiratory: bilateral: diminished, wheezing - Cardiovascular Rhythm: regular Heart Sounds: Present: S1 & S2. Absent: systolic murmur, diastolic murmur - Extremities Extremities: pulses intact, pulses symmetrical Extremity abnormal: edema, dry skin Peripheral Pulses: within normal limits - Abdominal General gastrointestinal: soft, non-tender, non-distended, normal bowel sounds - Integumentary Integumentary: Present: dry - Psychiatric Psychiatric: other (sedated) - Neurologic Neurologic: other (sedated) - Allied Health Allied health notes reviewed: nursing, RT, social work - Constitutional Vitals: Temp Pulse Resp BP Pulse Ox 99.5 F 128 H 30 H 109/66 97 04/12/21 16:45 04/12/21 16:45 04/12/21 16:45 04/12/21 16:45 04/12/21 16:45 General appearance: Present: no acute distress, well-nourished, obese, other (Intubated and sedated) Results - Labs CBC & Chem 7: 04/12/21 04:30 04/12/21 04:30 Labs: Laboratory Last Values WBC 17.5 K/mm3 (4.5-11.0) H 04/12/21 04:30 RBC 2.68 M/mm3 (3.65-5.03) L 04/12/21 04:30 Hgb 7.6 gm/dl (10.1-14.3) L 04/12/21 04:30 Hct 24.0 % (30.3-42.9) L 04/12/21 04:30 MCV 89 fl (79-97) 04/12/21 04:30 MCH 28 pg (28-32) 04/12/21 04:30 MCHC 32 % (30-34) 04/12/21 04:30 RDW 18.0 % (13.2-15.2) H 04/12/21 04:30 Plt Count 140 K/mm3 (140-440) 04/12/21 04:30 Lymph % (Auto) 10.7 % (13.4-35.0) L 03/28/21 09:37 [place] % (Auto) 5.2 % (0.0-7.3) 03/28/21 09:37 Eos % (Auto) Registered Nurse Midwife 04/07/21 03:50 Baso % (Auto) 0.2 % (0.0-1.8) 03/28/21 09:37 Lymph # (Auto) 1.7 K/mm3 (1.2-5.4) 03/28/21 09:37 [place] # (Auto) 0.9 K/mm3 (0.0-0.8) H 03/28/21 09:37 Eos # (Auto) 0.6 K/mm3 (0.0-0.4) H 03/28/21 09:37 Baso # (Auto) 0.0 K/mm3 (0.0-0.1) 03/28/21 09:37 Add Manual Diff Complete 04/07/21 03:50 Total Counted 100 04/07/21 03:50 Seg Neutrophils % 80.0 % (40.0-70.0) H 03/28/21 09:37 Seg Neuts % (Manual) 67.0 % (40.0-70.0) 04/07/21 03:50 Lymphocytes % (Manual) 10.0 % (13.4-35.0) L 04/07/21 03:50 Monocytes % (Manual) 4.0 % (0.0-7.3) 04/07/21 03:50 Eosinophils % (Manual) 19.0 % (0.0-4.3) H 04/07/21 03:50 Basophils % (Manual) 2.0 % (0.0-1.8) H 04/03/21 04:30 Nucleated RBC % 2.0 % (0.0-0.9) H 04/07/21 03:50 Seg Neutrophils # 13.0 K/mm3 (1.8-7.7) H 03/28/21 09:37 Seg Neutrophils # Man 17.9 K/mm3 (1.8-7.7) H 04/07/21 03:50 Band Neutrophils # 0.0 K/mm3 04/07/21 03:50 Lymphocytes # (Manual) 2.7 K/mm3 (1.2-5.4) 04/07/21 03:50 Abs React Lymphs (Man) 0.0 K/mm3 04/07/21 03:50 Monocytes # (Manual) 1.1 K/mm3 (0.0-0.8) H 04/07/21 03:50 Eosinophils # (Manual) 5.1 K/mm3 (0.0-0.4) H 04/07/21 03:50 Basophils # (Manual) 0.0 K/mm3 (0.0-0.1) 04/07/21 03:50 Metamyelocytes # 0.0 K/mm3 04/07/21 03:50 Myelocytes # 0.0 K/mm3 04/07/21 03:50 Promyelocytes # 0.0 K/mm3 04/07/21 03:50 Blast Cells # 0.0 K/mm3 04/07/21 03:50 WBC Morphology Not Reportable 04/07/21 03:50 Hypersegmented Neuts Not Reportable 04/07/21 03:50 Hyposegmented Neuts Not Reportable 04/07/21 03:50 Hypogranular Neuts Not Reportable 04/07/21 03:50 Smudge Cells Not Reportable 04/07/21 03:50 Toxic Granulation Not Reportable 04/07/21 03:50 Toxic Vacuolation Not Reportable 04/07/21 03:50 Dohle Bodies Not Reportable 04/07/21 03:50 Pelger-Huet Anomaly Not Reportable 04/07/21 03:50 Bridgette Rods Not Reportable 04/07/21 03:50 Platelet Estimate Consistent w auto 04/07/21 03:50 Clumped Platelets Not Reportable 04/07/21 03:50 Plt Clumps, EDTA Not Reportable 04/07/21 03:50 Large Platelets Not Reportable 04/07/21 03:50 Giant Platelets Not Reportable 04/07/21 03:50 Platelet Satelliting Not Reportable 04/07/21 03:50 Plt Morphology Comment Not Reportable 04/07/21 03:50 RBC Morphology Not Reportable 04/07/21 03:50 Dimorphic RBCs Not Reportable 04/07/21 03:50 Polychromasia Not Reportable 04/07/21 03:50 Hypochromasia Not Reportable 04/07/21 03:50 Poikilocytosis Not Reportable 04/07/21 03:50 Anisocytosis 1+ 04/07/21 03:50 Microcytosis Not Reportable 04/07/21 03:50 Macrocytosis Not Reportable 04/07/21 03:50 Spherocytes Not Reportable 04/07/21 03:50 Pappenheimer Bodies Not Reportable 04/07/21 03:50 Sickle Cells Not Reportable 04/07/21 03:50 Target Cells 1+ 04/07/21 03:50 Tear Drop Cells Not Reportable 04/07/21 03:50 Ovalocytes Not Reportable 04/07/21 03:50 Helmet Cells Not Reportable 04/07/21 03:50 [place] Bodies Not Reportable 04/07/21 03:50 Cantril Rings Not Reportable 04/07/21 03:50 [place] Cells Not Reportable 04/07/21 03:50 Bite Cells Not Reportable 04/07/21 03:50 Crenated Cell Not Reportable 04/07/21 03:50 Elliptocytes Not Reportable 04/07/21 03:50 Acanthocytes (Spur) Not Reportable 04/07/21 03:50 Rouleaux Not Reportable 04/07/21 03:50 Hemoglobin C Crystals Not Reportable 04/07/21 03:50 Schistocytes Not Reportable 04/07/21 03:50 Malaria parasites Not Reportable 04/07/21 03:50 Percent Retic 4.52 % (0.78-2.58) H 03/31/21 09:49 Vaibhav Bodies Not Reportable 04/07/21 03:50 Hem Pathologist Commnt No 04/07/21 03:50 PT 13.9 Sec. (12.2-14.9) 04/04/21 07:55 INR 0.96 (0.87-1.13) 04/04/21 07:55 APTT 28.9 Sec. (24.2-36.6) 04/04/21 07:55 Fibrinogen 455 mg/dl (211-480) 04/07/21 03:50 D-Dimer 2696.79 ng/mlDDU (0-234) H 04/08/21 04:40 Heparin Anti-Xa, Unfract TNR 03/22/21 08:20 ABG pH 7.253 pH Units (7.350-7.450) L 04/12/21 02:52 POC ABG pCO2 63.4 mmHg (32.0-48.0) H 04/09/21 21:00 ABG pCO2 54.5 mm Hg 04/12/21 02:52 POC ABG pO2 83.0 mmHg (83-108) 04/09/21 21:00 ABG pO2 79.6 mm Hg (80.0-90.0) L 04/12/21 02:52 POC ABG HCO3 23.8 04/09/21 21:00 ABG HCO3 23.5 mmol/L (20.0-26.0) 04/12/21 02:52 ABG O2 Saturation 94.1 % (95.0-99.0) L 04/12/21 02:52 ABG O2 Content 10.2 (0.0-44) 04/08/21 09:55 POC ABG Base Excess -4.6 04/09/21 21:00 ABG Base Excess -3.6 mmol/L (-2.0-3.0) L 04/12/21 02:52 ABG Hemoglobin 8.1 gm/dl (12.0-16.0) L 04/12/21 02:52 ABG Oxyhemoglobin 92.9 (94-98) L 04/09/21 21:00 ABG Carboxyhemoglobin 0.4 % (0.0-5.0) 04/12/21 02:52 ABG Methemoglobin 0.1 % (0.0-1.5) 04/12/21 02:52 ABG Sodium 135.1 mmol/L (136.0-145.0) L 04/09/21 21:00 ABG Potassium 4.2 mmol/L (3.40-4.50) 04/09/21 21:00 ABG Chloride 102.0 mmol/L (98-107) 04/09/21 21:00 ABG Glucose 208 mg/dL (65-95) H 04/09/21 21:00 ABG Lactate Cancelled 04/03/21 20:45 Oxyhemoglobin 93.6 % (95.0-99.0) L 04/12/21 02:52 Carboxyhemoglobin 0.9 (0.5-1.5) 04/09/21 21:00 FiO2 60 % 04/08/21 09:55 FiO2 % 60.0 04/09/21 21:00 Sodium 139 mmol/L (137-145) 04/12/21 04:30 Potassium 4.9 mmol/L (3.6-5.0) 04/12/21 04:30 Chloride 100.5 mmol/L (98-107) 04/12/21 04:30 Carbon Dioxide 22 mmol/L (22-30) 04/12/21 04:30 Anion Gap 21 mmol/L 04/12/21 04:30 BUN 87 mg/dL (7-17) H 04/12/21 04:30 Creatinine 4.5 mg/dL (0.6-1.2) H 04/12/21 04:30 Estimated GFR 14 ml/min 04/12/21 04:30 BUN/Creatinine Ratio 19 % 04/12/21 04:30 Glucose 136 mg/dL (65-100) H 04/12/21 04:30 POC Glucose 137 mg/dL (70-105) H 04/12/21 11:57 Hemoglobin A1c 6.3 % (4-6) H 03/15/21 05:09 Lactic Acid 0.80 mmol/L (0.7-2.0) 04/07/21 03:50 Calcium 8.8 mg/dL (8.4-10.2) 04/12/21 04:30 Phosphorus 6.50 mg/dL (2.5-4.5) H 04/12/21 04:30 Magnesium 2.20 mg/dL (1.7-2.3) 04/12/21 04:30 Ferritin 151.6 ng/mL (10.0-200.0) 03/18/21 04:30 Total Bilirubin 0.80 mg/dL (0.1-1.2) 04/07/21 04:00 Bilirubin Cancelled 04/03/21 20:45 AST 38 units/L (5-40) 04/07/21 04:00 ALT 38 units/L (7-56) 04/07/21 04:00 Alkaline Phosphatase 167 units/L (35-129) H 04/07/21 04:00 Lactate Dehydrogenase 394 units/L (91-180) H 04/05/21 05:20 C-Reactive Protein 26.10 mg/dL (0.00-1.30) H 04/08/21 04:00 Total Protein 6.6 g/dL (6.3-8.2) 04/07/21 04:00 Albumin 2.8 g/dL (3.9-5) L 04/07/21 04:00 Albumin/Globulin Ratio 0.7 % 04/07/21 04:00 Triglycerides 406 mg/dL (2-149) H 04/11/21 04:15 Serotonin Release Assay TNR 03/22/21 08:20 Procalcitonin < 0.05 ng/mL (<0.15) 03/13/21 15:40 HCG, Qual Negative (Negative) 03/13/21 13:26 Arterial Blood Glucose 208 mg/dL (65-95) H 04/09/21 21:00 Arterial Blood Ionized Calcium 4.3 mg/dL (4.6-5.3) L 04/08/21 20:53 Urine Color Sweta (Yellow) 04/06/21 Unknown Urine Turbidity Cloudy (Clear) 04/06/21 Unknown Urine pH 5.0 (5.0-7.0) 04/06/21 Unknown Ur Specific [facility] 1.020 (1.003-1.030) 04/06/21 Unknown Urine Protein 100 mg/dl mg/dL (Negative) 04/06/21 Unknown Urine Glucose (UA) Neg mg/dL (Negative) 04/06/21 Unknown Urine Ketones Neg mg/dL (Negative) 04/06/21 Unknown Urine Blood Mod (Negative) 04/06/21 Unknown Urine Nitrite Neg (Negative) 04/06/21 Unknown Urine Bilirubin Neg (Negative) 04/06/21 Unknown Urine Urobilinogen < 2.0 mg/dL (<2.0) 04/06/21 Unknown Ur Leukocyte Esterase Neg (Negative) 04/06/21 Unknown Urine WBC (Auto) 148.0 /HPF (0.0-6.0) H 04/06/21 Unknown Urine RBC (Auto) > 182.0 /HPF (0.0-6.0) 04/06/21 Unknown U Epithel Cells (Auto) 102.0 /HPF (0-13.0) H 04/06/21 Unknown Urine Bacteria (Auto) 1+ /HPF (Negative) 04/06/21 Unknown Ur Renal Epithelial Cell 151 /LPF 04/06/21 Unknown Urine Mucus Few /HPF 04/06/21 Unknown Urine Yeast (Budding) 3+ /HPF 04/06/21 Unknown Urine Creatinine 40.1 mg/dL (0.1-20.0) H 03/14/21 17:50 Urine Sodium 124 mmol/L 03/14/21 17:50 Random Vancomycin 13.6 ug/mL (0-40.0) 04/12/21 04:30 Heparin-induced Plt Ab Negative (Negative) 03/22/21 08:20 UF Heparin High Dose TNR 03/22/21 08:20 JUAN UFH Low Dose 0.1 TNR 03/22/21 08:20 JUAN UFH Low Dose 0.5 TNR 03/22/21 08:20 Coronavirus (PCR) Negative (Negative) 04/04/21 09:00 Hepatitis A IgM Ab Non-reactive (NonReactive) 03/15/21 05:09 Hep Bs Antigen Nonreactive (Negative) 03/15/21 05:09 Hep B Core IgM Ab Non-reactive (NonReactive) 03/15/21 05:09 Hepatitis C Antibody Non-reactive (NonReactive) 03/15/21 05:09 Schistocytes Smear None seen 03/31/21 12:11 Blood Type O POSITIVE 04/11/21 13:39 Antibody Screen Negative 04/11/21 13:39 Direct Antiglob Test Negative 03/31/21 23:18 NIKOLE, Poly Interpret Negative 03/31/21 23:18 Crossmatch See Detail 04/11/21 13:39 Microbiology: Microbiology 04/11/21 15:05 Bronchial Washings - Left Upper Lobe Respiratory Culture - Preliminary 04/06/21 16:46 Peripheral/Venous Blood Culture - Final NO GROWTH AFTER 5 DAYS 04/06/21 17:00 Peripheral/Venous Blood Culture - Final NO GROWTH AFTER 5 DAYS Bazan/IV: Voiding Method Toilet Active Medications - Current Medications Current Medications: Generic Name Dose Route Start Last Admin Trade Name Freq PRN Reason Stop Dose Admin Acetaminophen 650 mg 03/31/21 12:41 04/12/21 08:12 Acetaminophen 325 Mg/10.15 Ml Oral Liqd Unit Dose FEEDTUBE 650 mg Q6H PRN Administration TEMP >/=100.4 Albumin Human 25 gm 04/01/21 08:19 04/01/21 16:23 Albumin Human 25% (25 Gm/100 Ml) Inj IV 25 gm KARLOS PRN Administration Hypotension Albuterol 2.5 mg 03/19/21 00:53 Albuterol 2.5 Mg/3 Ml Nebu IH Q4HRT PRN Shortness Of Breath Albuterol/Ipratropium 1 ampul 03/19/21 08:00 04/12/21 15:00 Ipratropium/Albuterol Sulfate 3 Ml Ampul.Neb IH 1 ampul Q6HRT INESSA Administration Lipase/Protease/Amylase 1 each 04/09/21 17:17 Lipase 10,500/Protease 25,000/Amylase 43,750 (Units) Dr White FEEDTUBE PRN PRN For Clogged Feeding Tube Ascorbic Acid 500 mg 03/14/21 22:00 04/12/21 09:17 Ascorbic Acid 500 Mg Tab PO 500 mg BID INESSA Administration Calcium Acetate 1,334 mg 04/03/21 20:00 04/12/21 13:41 Calcium Acetate 667 Mg Cap FEEDTUBE 1,334 mg TID INESSA Administration Dextrose 50 ml 03/14/21 11:02 03/15/21 11:40 Dextrose 50% In Water (25gm) 50 Ml Syringe IV 50 ml Q30MIN PRN Administration Hypoglycemia Protocol Famotidine 10 mg 03/17/21 22:00 04/12/21 09:17 Famotidine 10 Mg Tab PO 10 mg BID INESSA Administration Fentanyl 50 mcg 03/15/21 10:43 04/05/21 21:32 Fentanyl 100 Mcg/2 Ml Inj IV 50 mcg Q10MIN PRN Administration ANALGESIA Hydrocortisone Sodium Succinate 100 mg 04/10/21 00:00 04/12/21 16:03 Hydrocortisone Sod Succ 100 Mg/2 Ml Vial IV 100 mg Q8H INESSA Administration Hydromorphone HCl 1 mg 04/06/21 11:32 04/06/21 17:01 Hydromorphone 1 Mg/1 Ml Inj IV 04/13/21 11:31 1 mg Q4H PRN Administration Pain , Severe (7-10) Hydrophilic Ointment 1 applic 03/14/21 17:50 Lip Therapy Vaseline TP Q2HR PRN Dry Lips Fentanyl Citrate 2,000 mcg in 100 mls @ 6.872 mls/hr 03/15/21 11:00 04/12/21 10:47 Fentanyl Drip Premix IV 4 mcg/kg/hr TITR INESSA 27.488 mls/hr Administration Protocol 1 MCG/KG/HR Sodium Chloride 500 mls @ 1 mls/hr 03/16/21 17:19 Nacl 0.9% 500 Ml IV DIRECT PRN ARTERIAL LINE FLUSH Midazolam HCl 100 mg/ Sodium 100 mls @ 1 mls/hr 03/30/21 15:00 04/12/21 10:48 Chloride IV 6 mg/hr TITR INESSA 6 mls/hr Administration Protocol 1 MG/HR Vasopressin 20 unit/ Sodium 101 mls @ 9.09 mls/hr 03/30/21 20:00 04/12/21 10:01 Chloride IV 0.03 units/min TITR INESSA 9.09 mls/hr Administration 0.03 UNITS/MIN Phenylephrine HCl 100 mg/ 100 mls @ 3 mls/hr 03/31/21 04:00 04/06/21 07:58 Sodium Chloride IV 0 mcg/min TITR INESSA 0 mls/hr Titration Protocol 50 MCG/MIN Sodium Chloride 100 mls @ 999 mls/hr 04/01/21 08:19 Nacl 0.9% IV KARLOS PRN Hypotension Sodium Bicarbonate 150 meq/ 1,150 mls @ 75 mls/hr 04/02/21 22:00 04/07/21 16:21 Dextrose IV Infused DIRECT INESSA Infusion Propofol 1,000 mg in 100 mls @ 4.26 mls/hr 04/07/21 13:00 04/12/21 12:52 Diprivan 10 Mg/Ml IV 0 mcg/kg/min TITR INESSA 0 mls/hr Titration Protocol 5 MCG/KG/MIN Micafungin Sodium 100 mg/ 100 mls @ 100 mls/hr 04/09/21 17:00 04/11/21 16:22 Sodium Chloride IV 100 mls/hr Q24H INESSA Administration Protocol Sodium Chloride 500 mls @ 0 mls/hr 04/11/21 12:49 04/11/21 13:13 Nacl 0.9% 500 Ml IV 5 mls/hr ONCE INESSA Administration As Directed Norepinephrine 8 mg/ Sodium 8 mg in 258 mls @ 3.87 mls/hr 04/12/21 04:00 04/12/21 16:51 Chloride IV 8 mcg/min TITRATE INESSA 15.48 mls/hr Administration Protocol 2 MCG/MIN MEROPENEM/NS 1 GRAM/100 ML 1 gram in 100 mls @ 100 mls/hr 04/12/21 22:00 Merrem/Ns 1 Gram/100 Ml IV Q24H ON LICENSE OF [facility] Protocol Insulin Human Lispro 0 unit 03/14/21 12:00 04/12/21 12:01 Insulin Lispro 100 Unit/Ml SUB-Q Not Given Q6HR ON LICENSE OF [facility] Protocol Lorazepam 1 mg 03/13/21 19:40 03/30/21 19:58 Lorazepam 2 Mg/Ml Vial IV 1 mg Q4H PRN Administration Anxiety Multi-Ingred Cream/Lotion/Oil/Oint 1 applic 03/14/21 17:50 04/10/21 22:03 Mineral Oil/Petrolatum, White Ophth Oint 3.5 Gm OU 1 applic Q4HR PRN Administration Dry Eye(s) Ondansetron HCl 4 mg 03/13/21 19:30 03/21/21 12:05 Ondansetron 4 Mg/2 Ml Inj IV 4 mg Q8H PRN Administration Nausea And Vomiting Quetiapine Fumarate 300 mg 04/06/21 22:00 04/12/21 09:17 Quetiapine 100 Mg Tab PO 300 mg BID INESSA Administration Senna/Docusate Sodium 1 tab 03/14/21 22:00 04/12/21 09:16 Sennosides/Docusate Sodium 8.6/50 Mg Tab FEEDTUBE 1 tab BID INESSA Administration Simple Syrup 15 ml 04/09/21 17:17 Simple Syrup 15 Ml FEEDTUBE PRN PRN Hypoglycemia Simple Syrup 30 ml 04/09/21 17:17 Simple Syrup 15 Ml FEEDTUBE PRN PRN Hypoglycemia Sodium Bicarbonate 325 mg 03/15/21 11:42 03/21/21 17:21 Sodium Bicarbonate 325 Mg Tab FEEDTUBE 325 mg PRN PRN Administration For Clogged Feeding Tube Sodium Bicarbonate 325 mg 04/09/21 17:17 Sodium Bicarbonate 325 Mg Tab FEEDTUBE PRN PRN For Clogged Feeding Tube Sodium Chloride 10 ml 03/13/21 22:00 04/12/21 09:20 Sodium Chloride 0.9% 10 Ml Flush Syringe IV 10 ml BID INESSA Administration Sodium Chloride 10 ml 03/13/21 19:30 Sodium Chloride 0.9% 10 Ml Flush Syringe IV PRN PRN LINE FLUSH Zinc Sulfate 220 mg 03/14/21 22:00 04/12/21 09:25 Zinc Sulfate 220 Mg Cap PO 220 mg BID INESSA Administration Nutrition/Malnutrition Assess - Dietary Evaluation Nutrition/Malnutrition Findings: Nutrition Notes Start: 03/15/21 11:06 Freq: Status: Active Protocol: Document 04/09/21 16:52 CANDACE (Rec: 04/09/21 17:24 CANDACE [id number]) Nutrition Notes Initial or Follow up Reassessment Current Diagnosis Acute Kidney Injury, Hypertension,Respiratory Failure Other Pertinent Diagnosis [id number], Transaminitis, Hyperglycemia, Current Diet TF -Nepro w/CARBSTEADY (since D 03/15). Labs/Tests 04/09: Na 131, K 6.3, Cl 93.0, CO2 19, BUN 98, Crea 4.6, Glu 208, Ca 8.1. Pertinent Medications 04/09: Nutritionally unremarkable. Height 5 ft 5 in Weight 142 kg [place] Body Weight (kg) 56.81 BMI 52.0 Weight change and time frame 4.56 Kg body weight gain during last 7 days reported. Weight Status Morbidly Obese Subjective/Other Information RD consult for routine F/U on TF tolerance. Burn Absent Trauma Absent GI Symptoms None Food Allergy No Skin Integrity/Comment Clear, warm, dry. Current % PO Other Minimum of two criteria No Is patient on ventilator? Yes Is Patient Ambulatory and/or Out of Bed No REE-(Goodwin-St. Jeor-confined to bed) 2570.232 Kcal/Kg value to use for calculation 14 Approximate Energy Requirements Using 1988 kcal/Kg Calculation Used for Recommendations Kcal/kg Additional Notes Pro needs >1.2g/kg adjBW: > 117g/day Fluid needs 1-1.5L/day Nutrition Intervention Nutrition Support: Continue Nepro w/CARBSTEADY @ 46 ml/hr. Flush: 198 ml water Q 4h Kcal 1,988 Protein (gm) 90 Carbohydrates (gm) 178 Fat (gm) 106 Fluid (mL) 803 Fiber (gm) 14 % RDI: 100% Kcal; 76% AA. Goal #1 Maintain body weight within +/ -3% of admission BWt during LOS. Goal #2 Reach and maintain acceptable chemistry lab values during LOS. Follow-Up By: 04/23/21 Additional Comments Continue monitoring TF tolerance, Hydration, and BM.
[2021-04-12] MEDS: MICAFUNGIN 100 MG in SODIUM CHLORIDE 0.9% 100 ML IV SCH (17:31)
[2021-04-12] MEDS: MEROPENEM/NS 1 GRAM/100 ML 1 GRAM/100 ML BAG IV SCH (22:03)
[2021-04-13] MEDS: ACETAMINOPHEN 325 MG/10.15 ML ORAL LIQD UNIT DOSE FEEDTUBE PRN ×2 (00:48→07:55)
[2021-04-13] MEDS: HYDROCORTISONE SOD SUCC 100 MG/2 ML VIAL IV SCH ×3 (00:48→16:09)
[2021-04-13] MEDS: INSULIN LISPRO 100 UNIT/ML SUB-Q SCH ×4 (00:48→17:36)
[2021-04-13] MEDS: fentaNYL DRIP Premix 2,000 MCG/100 ML BAG IV SCH ×7 (00:55→22:17)
[2021-04-13] MEDS: IPRATROPIUM/ALBUTEROL SULFATE 3 ML AMPUL.NEB IH SCH ×4 (02:12→21:03)
[2021-04-13] MEDS: MIDAZOLAM 100 MG in SODIUM CHLORIDE 0.9% 80 ML IV SCH ×2 (02:26→17:37)
[2021-04-13 04:38] LABS: ABG Base Excess -2.9 mmol/L (-2.0-3.0); ABG HCO3 25.5 mmol/L (20.0-26.0); ABG Methemoglobin 0.5 % (0.0-1.5); ABG Oxygen Saturation 96.6 % (95.0-99.0); ABG PCO2 68.6 mm Hg; ABG PO2 98.9 mm Hg (80.0-90.0)
[2021-04-13 04:48] LABS: ABG PH 7.195 pH Units (7.350-7.450)
[2021-04-13 05:39] LABS: Hematocrit 23.2 % (30.3-42.9); Hemoglobin 7.3 gm/dl (10.1-14.3); Mean Corpuscular HGB Conc 31 % (30-34); Mean Corpuscular Volume 90 fl (79-97); Red Blood Count 2.57 M/mm3 (3.65-5.03); Red Cell Distribution Width 17.6 % (13.2-15.2)
[2021-04-13] MEDS: NOREPINEPHRINE IV SCH (05:52)
[2021-04-13] MEDS: SODIUM CHLORIDE IV SCH (05:52)
[2021-04-13 05:55] LABS: Calcium 8.6 mg/dL (8.4-10.2)
[2021-04-13 05:56] LABS: Platelet Count 73 K/mm3 (140-440)
[2021-04-13 05:57] LABS: INR 1.16 (0.87-1.13)
[2021-04-13 06:47] LABS: ANA Screen, IFA Negative (Negative)
[2021-04-13] MEDS: CALCIUM ACETATE 667 MG CAP FEEDTUBE SCH ×3 (07:55→22:15)
[2021-04-13] MEDS: VASOPRESSIN 20 UNIT in SODIUM CHLORIDE 0.9% 100 ML IV SCH ×2 (07:58→20:12)
--- NOTE | 2021-04-13 09:39 | Progress Note ---
Assessment and Plan Impression: * Acute kidney injury - dialysis dependent * Acute hypoxic respiratory failure secondary to COVID 19 PNA * COVID 19 * Respiratory acidosis * Hyperkalemia Plan: * HD attempted yesterday but patient deemed unstable - HR in 130s pre treatment * Will plan for HD today pending hemodynamic stability - currently HR in 110s * Transfuse pRBC per primary team - Hb 7.3 this AM * Hematology recs reviewed * Dose medications for renal function * Note plans for family conference this week Subjective Date of service: 04/13/21 Principal diagnosis: Ac hypoxemic resp failure; AE-Asthma; SAI; Crohn's; Pneumonia Interval history: No acute events overnight. Objective - Vital Signs Vital signs: Vital Signs - 12hr 04/12/21 04/12/21 04/12/21 21:45 22:01 22:15 Temperature Pulse Rate 102 H 102 H 99 H Pulse Rate [ Anterior Bilateral Throughout] Pulse Rate [ From Monitor] Respiratory 0 L 0 L 0 L Rate Respiratory Rate [Anterior Bilateral Throughout] Blood Pressure O2 Sat by Pulse 99 99 98 Oximetry 04/12/21 04/12/21 04/12/21 22:31 22:45 23:01 Temperature Pulse Rate 103 H 105 H 108 H Pulse Rate [ Anterior Bilateral Throughout] Pulse Rate [ From Monitor] Respiratory 0 L 0 L 0 L Rate Respiratory Rate [Anterior Bilateral Throughout] Blood Pressure O2 Sat by Pulse 97 97 97 Oximetry 04/12/21 04/12/21 04/12/21 23:15 23:31 23:45 Temperature Pulse Rate 109 H 108 H 108 H Pulse Rate [ Anterior Bilateral Throughout] Pulse Rate [ From Monitor] Respiratory 0 L 0 L 0 L Rate Respiratory Rate [Anterior Bilateral Throughout] Blood Pressure O2 Sat by Pulse 100 100 100 Oximetry 04/12/21 04/13/21 04/13/21 23:49 00:00 00:01 Temperature 100.6 F H Pulse Rate 99 H 108 H 108 H Pulse Rate [ Anterior Bilateral Throughout] Pulse Rate [ 108 H From Monitor] Respiratory 10 L 0 L Rate Respiratory Rate [Anterior Bilateral Throughout] Blood Pressure 116/54 O2 Sat by Pulse 98 100 100 Oximetry 04/13/21 04/13/21 04/13/21 00:15 00:31 00:45 Temperature Pulse Rate 110 H 123 H 124 H Pulse Rate [ Anterior Bilateral Throughout] Pulse Rate [ From Monitor] Respiratory 15 22 26 H Rate Respiratory Rate [Anterior Bilateral Throughout] Blood Pressure O2 Sat by Pulse 100 100 100 Oximetry 04/13/21 04/13/21 04/13/21 01:01 01:15 01:31 Temperature Pulse Rate 125 H 132 H 129 H Pulse Rate [ Anterior Bilateral Throughout] Pulse Rate [ From Monitor] Respiratory 26 H 28 H 22 Rate Respiratory Rate [Anterior Bilateral Throughout] Blood Pressure O2 Sat by Pulse 100 99 100 Oximetry 04/13/21 04/13/21 04/13/21 01:45 02:01 02:15 Temperature Pulse Rate 127 H 128 H 130 H Pulse Rate [ 122 H Anterior Bilateral Throughout] Pulse Rate [ From Monitor] Respiratory 20 21 19 Rate Respiratory 32 H Rate [Anterior Bilateral Throughout] Blood Pressure O2 Sat by Pulse 100 99 98 Oximetry 04/13/21 04/13/21 04/13/21 02:31 02:45 03:01 Temperature Pulse Rate 130 H 130 H 131 H Pulse Rate [ Anterior Bilateral Throughout] Pulse Rate [ From Monitor] Respiratory 18 17 17 Rate Respiratory Rate [Anterior Bilateral Throughout] Blood Pressure O2 Sat by Pulse 99 96 96 Oximetry 04/13/21 04/13/21 04/13/21 03:15 03:31 03:44 Temperature 100.4 F H Pulse Rate 131 H 129 H Pulse Rate [ Anterior Bilateral Throughout] Pulse Rate [ From Monitor] Respiratory 16 17 Rate Respiratory Rate [Anterior Bilateral Throughout] Blood Pressure O2 Sat by Pulse 96 95 Oximetry 04/13/21 04/13/21 04/13/21 03:45 04:00 04:01 Temperature Pulse Rate 129 H 127 H 127 H Pulse Rate [ Anterior Bilateral Throughout] Pulse Rate [ 127 H From Monitor] Respiratory 16 16 16 Rate Respiratory Rate [Anterior Bilateral Throughout] Blood Pressure O2 Sat by Pulse 94 96 97 Oximetry 04/13/21 04/13/21 04/13/21 04:15 04:20 04:31 Temperature Pulse Rate 127 H 127 H 128 H Pulse Rate [ Anterior Bilateral Throughout] Pulse Rate [ From Monitor] Respiratory 16 17 Rate Respiratory Rate [Anterior Bilateral Throughout] Blood Pressure O2 Sat by Pulse 97 97 96 Oximetry 04/13/21 04/13/21 04/13/21 04:45 05:01 05:15 Temperature Pulse Rate 128 H 128 H 128 H Pulse Rate [ Anterior Bilateral Throughout] Pulse Rate [ From Monitor] Respiratory 18 17 17 Rate Respiratory Rate [Anterior Bilateral Throughout] Blood Pressure O2 Sat by Pulse 93 95 94 Oximetry 04/13/21 04/13/21 04/13/21 05:31 05:45 06:01 Temperature Pulse Rate 127 H 127 H 128 H Pulse Rate [ Anterior Bilateral Throughout] Pulse Rate [ From Monitor] Respiratory 17 17 17 Rate Respiratory Rate [Anterior Bilateral Throughout] Blood Pressure O2 Sat by Pulse 96 97 97 Oximetry 04/13/21 04/13/21 04/13/21 06:15 06:31 06:45 Temperature Pulse Rate 130 H 131 H 130 H Pulse Rate [ Anterior Bilateral Throughout] Pulse Rate [ From Monitor] Respiratory 16 18 22 Rate Respiratory Rate [Anterior Bilateral Throughout] Blood Pressure O2 Sat by Pulse 98 98 99 Oximetry 04/13/21 04/13/21 04/13/21 07:01 07:15 07:31 Temperature Pulse Rate 127 H 124 H 127 H Pulse Rate [ Anterior Bilateral Throughout] Pulse Rate [ From Monitor] Respiratory 17 16 28 H Rate Respiratory Rate [Anterior Bilateral Throughout] Blood Pressure O2 Sat by Pulse 100 100 100 Oximetry 04/13/21 04/13/21 04/13/21 07:45 08:00 08:01 Temperature 100.8 F H Pulse Rate 124 H 122 H 120 H Pulse Rate [ Anterior Bilateral Throughout] Pulse Rate [ 115 H From Monitor] Respiratory 17 30 H 15 Rate Respiratory Rate [Anterior Bilateral Throughout] Blood Pressure O2 Sat by Pulse 100 100 100 Oximetry 04/13/21 04/13/21 04/13/21 08:15 08:31 08:45 Temperature Pulse Rate 117 H 114 H 112 H Pulse Rate [ Anterior Bilateral Throughout] Pulse Rate [ From Monitor] Respiratory 15 14 13 Rate Respiratory Rate [Anterior Bilateral Throughout] Blood Pressure O2 Sat by Pulse 100 100 100 Oximetry 04/13/21 04/13/21 04/13/21 09:01 09:25 09:34 Temperature Pulse Rate 115 H 119 H Pulse Rate [ 119 H Anterior Bilateral Throughout] Pulse Rate [ From Monitor] Respiratory 15 Rate Respiratory 30 H Rate [Anterior Bilateral Throughout] Blood Pressure O2 Sat by Pulse 98 97 Oximetry - General Appearance General appearance: well-developed, well-nourished EENT: ATNC, other (ETT inplace) Respiratory: Present: Other (Deferred) Cardiology: other (Deferred) Neurologic: other (sedated) - Lab 04/13/21 04:44 04/13/21 04:44 Most recent lab results ABG pH 7.195 pH Units (7.350-7.450) L* 04/13/21 03:52 ABG pCO2 68.6 mm Hg 04/13/21 03:52 ABG pO2 98.9 mm Hg (80.0-90.0) H 04/13/21 03:52 ABG HCO3 25.5 mmol/L (20.0-26.0) 04/13/21 03:52 ABG O2 Saturation 96.6 % (95.0-99.0) 04/13/21 03:52 Calcium 8.6 mg/dL (8.4-10.2) 04/13/21 04:44 Phosphorus 6.80 mg/dL (2.5-4.5) H 04/13/21 04:44 Magnesium 2.10 mg/dL (1.7-2.3) 04/13/21 04:44 Urine Creatinine 40.1 mg/dL (0.1-20.0) H 03/14/21 17:50 Urine Sodium 124 mmol/L 03/14/21 17:50 Medications & Allergies - Medications Allergies/Adverse Reactions: Allergies oxycodone HCl [From Percocet] Allergy (Severe, Verified 03/30/21 14:01) Swelling cefepime Allergy (Verified 04/06/21 13:38) Rash hydrocodone bitartrate [From Vicodin] Allergy (Verified 03/31/21 08:20) Swelling ALLERGY TO TYLENOL VS OXYCODONE ACTIVE ORDER REMOVED FROM [facility] SINCE UNABLE TO CONFIRM WITH FAMILY Home Medications: Home Medications Medication Instructions Recorded Confirmed Last Taken Type Chlorhexidine Mouthwash [Peridex] 15 ml MM BID #1 bottle 10/11/20 03/13/21 Unknown Rx Clindamycin [Clindamycin CAP] 300 mg PO Q8H #21 cap 10/11/20 03/13/21 Unknown Rx Naproxen 500 mg PO Q12H PRN #12 tablet 10/11/20 03/13/21 Unknown Rx Butalb/Acetamin/Caff 50-325-40 1 - 2 tab PO Q6HR PRN #15 tab 12/05/20 03/13/21 Unknown Rx [Fioricet 50-325-40] Famotidine [Pepcid] 20 mg PO BID #30 tablet 12/05/20 03/13/21 Unknown Rx Ketorolac [Toradol] 10 mg PO Q8H PRN #20 tablet 12/05/20 03/13/21 Unknown Rx Ondansetron [Zofran Odt] 4 mg PO Q6HR PRN #20 tab.rapdis 12/05/20 03/13/21 Unknown Rx Albuterol Sulfate [Proair 90 mcg IH Q4HR PRN #2 aer.[email or web address] 01/01/21 03/13/21 Unknown Rx Respiclick] Mupirocin [Bactroban 2% OINT] 1 applic TP BID 7 Days #1 tube 01/01/21 03/13/21 Unknown Rx Triamcinolone Aceton 0.1% (Nf) 1 applic TP BID 14 Days #1 tube 01/01/21 03/13/21 Unknown Rx [Kenalog (NF)] predniSONE [Deltasone] 40 mg PO QDAY #8 tab 01/01/21 03/13/21 Unknown Rx Active Medications: Generic Name Dose Route Start Last Admin Trade Name Freq PRN Reason Stop Dose Admin Acetaminophen 650 mg 03/31/21 12:41 04/13/21 07:55 Acetaminophen 325 Mg/10.15 Ml Oral Liqd Unit Dose FEEDTUBE 650 mg Q6H PRN Administration TEMP >/=100.4 Albumin Human 25 gm 04/01/21 08:19 04/01/21 16:23 Albumin Human 25% (25 Gm/100 Ml) Inj IV 25 gm KARLOS PRN Administration Hypotension Albuterol 2.5 mg 03/19/21 00:53 Albuterol 2.5 Mg/3 Ml Nebu IH Q4HRT PRN Shortness Of Breath Albuterol/Ipratropium 1 ampul 03/19/21 08:00 04/13/21 09:33 Ipratropium/Albuterol Sulfate 3 Ml Ampul.Neb IH 1 ampul Q6HRT INESSA Administration Lipase/Protease/Amylase 1 each 04/09/21 17:17 Lipase 10,500/Protease 25,000/Amylase 43,750 (Units) Dr White FEEDTUBE PRN PRN For Clogged Feeding Tube Ascorbic Acid 500 mg 03/14/21 22:00 04/12/21 22:41 Ascorbic Acid 500 Mg Tab PO 500 mg BID INESSA Administration Calcium Acetate 1,334 mg 04/03/21 20:00 04/13/21 07:55 Calcium Acetate 667 Mg Cap FEEDTUBE 1,334 mg TID INESSA Administration Dextrose 50 ml 03/14/21 11:02 03/15/21 11:40 Dextrose 50% In Water (25gm) 50 Ml Syringe IV 50 ml Q30MIN PRN Administration Hypoglycemia Protocol Famotidine 10 mg 03/17/21 22:00 04/12/21 22:01 Famotidine 10 Mg Tab PO 10 mg BID INESSA Administration Fentanyl 50 mcg 03/15/21 10:43 04/05/21 21:32 Fentanyl 100 Mcg/2 Ml Inj IV 50 mcg Q10MIN PRN Administration ANALGESIA Hydrocortisone Sodium Succinate 100 mg 04/10/21 00:00 04/13/21 07:56 Hydrocortisone Sod Succ 100 Mg/2 Ml Vial IV 100 mg Q8H INESSA Administration Hydromorphone HCl 1 mg 04/06/21 11:32 04/06/21 17:01 Hydromorphone 1 Mg/1 Ml Inj IV 04/13/21 11:31 1 mg Q4H PRN Administration Pain , Severe (7-10) Hydrophilic Ointment 1 applic 03/14/21 17:50 Lip Therapy Vaseline TP Q2HR PRN Dry Lips Fentanyl Citrate 2,000 mcg in 100 mls @ 6.872 mls/hr 03/15/21 11:00 04/13/21 08:15 Fentanyl Drip Premix IV 4 mcg/kg/hr TITR INESSA 27.488 mls/hr Administration Protocol 1 MCG/KG/HR Sodium Chloride 500 mls @ 1 mls/hr 03/16/21 17:19 Nacl 0.9% 500 Ml IV DIRECT PRN ARTERIAL LINE FLUSH Midazolam HCl 100 mg/ Sodium 100 mls @ 1 mls/hr 03/30/21 15:00 04/13/21 02:26 Chloride IV 6 mg/hr TITR INESSA 6 mls/hr Administration Protocol 1 MG/HR Vasopressin 20 unit/ Sodium 101 mls @ 9.09 mls/hr 03/30/21 20:00 04/13/21 07:58 Chloride IV 0.03 units/min TITR INESSA 9.09 mls/hr Administration 0.03 UNITS/MIN Phenylephrine HCl 100 mg/ 100 mls @ 3 mls/hr 03/31/21 04:00 04/06/21 07:58 Sodium Chloride IV 0 mcg/min TITR INESSA 0 mls/hr Titration Protocol 50 MCG/MIN Sodium Chloride 100 mls @ 999 mls/hr 04/01/21 08:19 Nacl 0.9% IV KARLOS PRN Hypotension Propofol 1,000 mg in 100 mls @ 4.26 mls/hr 04/07/21 13:00 04/12/21 12:52 Diprivan 10 Mg/Ml IV 0 mcg/kg/min TITR INESSA 0 mls/hr Titration Protocol 5 MCG/KG/MIN Micafungin Sodium 100 mg/ 100 mls @ 100 mls/hr 04/09/21 17:00 04/12/21 17:31 Sodium Chloride IV 100 mls/hr Q24H INESSA Administration Protocol Norepinephrine 8 mg/ Sodium 8 mg in 258 mls @ 3.87 mls/hr 04/12/21 04:00 04/13/21 05:52 Chloride IV 2 mcg/min TITRATE INESSA 3.87 mls/hr Administration Protocol 2 MCG/MIN MEROPENEM/NS 1 GRAM/100 ML 1 gram in 100 mls @ 100 mls/hr 04/12/21 22:00 04/12/21 22:03 Merrem/Ns 1 Gram/100 Ml IV 100 mls/hr Q24H INESSA Administration Protocol Vancomycin HCl 1,500 mg/ 530 mls @ 333.333 mls/hr 04/13/21 10:00 Sodium Chloride IV 04/13/21 14:00 ONCE@1000 INESSA Insulin Human Lispro 0 unit 03/14/21 12:00 04/13/21 05:55 Insulin Lispro 100 Unit/Ml SUB-Q 2 unit Q6HR [facility] Administration Protocol Lorazepam 1 mg 03/13/21 19:40 03/30/21 19:58 Lorazepam 2 Mg/Ml Vial IV 1 mg Q4H PRN Administration Anxiety Multi-Ingred Cream/Lotion/Oil/Oint 1 applic 03/14/21 17:50 04/10/21 22:03 Mineral Oil/Petrolatum, White Ophth Oint 3.5 Gm OU 1 applic Q4HR PRN Administration Dry Eye(s) Ondansetron HCl 4 mg 03/13/21 19:30 03/21/21 12:05 Ondansetron 4 Mg/2 Ml Inj IV 4 mg Q8H PRN Administration Nausea And Vomiting Quetiapine Fumarate 300 mg 04/06/21 22:00 04/12/21 22:01 Quetiapine 100 Mg Tab PO 300 mg BID INESSA Administration Senna/Docusate Sodium 1 tab 03/14/21 22:00 04/12/21 22:01 Sennosides/Docusate Sodium 8.6/50 Mg Tab FEEDTUBE 1 tab BID INESSA Administration Simple Syrup 15 ml 04/09/21 17:17 Simple Syrup 15 Ml FEEDTUBE PRN PRN Hypoglycemia Simple Syrup 30 ml 04/09/21 17:17 Simple Syrup 15 Ml FEEDTUBE PRN PRN Hypoglycemia Sodium Bicarbonate 325 mg 04/09/21 17:17 Sodium Bicarbonate 325 Mg Tab FEEDTUBE PRN PRN For Clogged Feeding Tube Sodium Chloride 10 ml 03/13/21 22:00 04/12/21 22:02 Sodium Chloride 0.9% 10 Ml Flush Syringe IV 10 ml BID INESSA Administration Sodium Chloride 10 ml 03/13/21 19:30 Sodium Chloride 0.9% 10 Ml Flush Syringe IV PRN PRN LINE FLUSH Zinc Sulfate 220 mg 03/14/21 22:00 04/12/21 22:02 Zinc Sulfate 220 Mg Cap PO 220 mg BID INESSA Administration
[2021-04-13] MEDS: SENNOSIDES/DOCUSATE SODIUM 8.6/50 MG TAB FEEDTUBE SCH ×2 (09:42→22:16)
[2021-04-13] MEDS: FAMOTIDINE 10 MG TAB PO SCH ×2 (09:42→22:16)
[2021-04-13] MEDS: ASCORBIC ACID 500 MG TAB PO SCH ×2 (09:43→22:16)
[2021-04-13] MEDS: QUEtiapine 100 MG TAB PO SCH ×2 (09:43→22:15)
[2021-04-13] MEDS: ZINC SULFATE 220 MG CAP PO SCH ×2 (09:43→22:16)
[2021-04-13] MEDS ORDERED: VANCOMYCIN 1,500 MG in SODIUM CHLORIDE 0.9% 500 ML 500 ML IV SCH (10:00)
[2021-04-13] MEDS ORDERED: SODIUM CHLORIDE 0.9% 500 ML 500 ML IV NR (11:30)
--- NOTE | 2021-04-13 12:58 | Progress Note ---
Assessment and Plan Acute hypoxemic respiratory failure Acute asthma exacerbation Morbid obesity Crohn's disease Metabolic acidosis Acute kidney injury Coronavirus infection Pneumonia (CAP) Oropharyngeal dysphagia Obesity, if not mentioned above (Padmini will need a tracheostomy once more stable; also discussed care plan at length with her mother and explained the gravity of her ill with Provider Relations Specialist listening in) - get CT head (no contrast), then CT chest, abd & pelvis (with contrast) if possible prior to Dialysis - get Fibrinogen, INR and address - continue PCV - repeat ABG at 9 pm - HD/UF today - continue care as below otherwise; - continue empiric Apixiban coverage for possible VTE as unable to get CTA - continue to wean vasopressors for target MAP > 65 mmHg - nephrology input appreciated; HD/UF for toxin and volume clearance - continue Daily SAT and SBT assessment as tolerated - continue to wean supplemental oxygen for target O2 sat's > 90% acutely - VAP bundle addressed - continue lung protective strategies - continue bronchodilators with pulmonary hygiene per RT - wean per pulmonary driven protocols otherwise - continue accuchecks with glycemic control per SSI (While critically ill target blood glucose of 140-180 mg/dL; avoid hypoglycemia) - sedation prn for target RASS 0 to -1 - avoid nephrotoxins, renally dose all medications - continue to avoid benzodiazepine's, reduce the possibility of delirium - AB's per ID rec's (s/p Cefepime) - prn analgesia per CPOT score - Maintenance of sleep-wake cycle, avoid delirium - continue enteral nutritional support at goal rate as tolerated - G.I. & VTE prophylaxis - PT/OT/ROM exercises - continue mobility protocols for pressure ulcer prophylaxis - Monitor hemodynamics closely - continue other care per attending / other consultants - discharge planning ongoing concurrently COVID SPECIFIC INTERVENTIONS - Isolation discontinued - s/p Actemra - Remdesivir as per ID/Pulmonary developed protocols (not a candidate) - continue systemic steroids for severe COVID-19 infection empirically - repeat COVID tests result negative - zinc and vitamin C supplementation - Monitor inflammatory markers per facility protocol - ferritin, Ddimer, CRP - therapeutic anticoagulation per system Protocol based on d-dimer and clinical considerations (VTE prophylaxis) - Continue contact and airborne isolation .... Re-evaluate in am & prn CONDITION: CRITICAL PROGNOSIS: GUARDED CODE STATUS: FULL CODE The high probability of a clinically significant, sudden or life-threatening deterioration of the [respiratory, cardiovascular, renal & neurologic] system(s) required my full and direct attention, intervention and personal management. The aggregate critical care time was [45] minutes without overlap. Time includes spent on; [x] Data Review and interpretation [x] Patient assessment and monitoring of vital signs [x] Documentation [x] Medication orders and management Subjective Date of service: 04/13/21 Principal diagnosis: Ac hypoxemic resp failure; AE-Asthma; SAI; Crohn's; COVID- 19; Pneumonia Interval history: Patient is seen today for: Acute hypoxemic respiratory failure; AE-Asthma; SAI; Crohn's disease; COVID-19 infection; Pneumonia (CAP) Seen and examined at bedside; 24hour events reviewed; nursing and respiratory care staff consulted; no adverse overnight events reported to me; resting in bed; remains on MVS; thrombocytopenia persistent and oozing serosaguinous secretions from ETT and oropharynx; AMS is persistent; no seizures; no emesis or overt aspiration Objective Vital Signs - 12hr 04/13/21 04/13/21 04/13/21 01:01 01:15 01:31 Temperature Pulse Rate 125 H 132 H 129 H Pulse Rate [ Anterior Bilateral Throughout] Pulse Rate [ From Monitor] Respiratory 26 H 28 H 22 Rate Respiratory Rate [Anterior Bilateral Throughout] O2 Sat by Pulse 100 99 100 Oximetry 04/13/21 04/13/21 04/13/21 01:45 02:01 02:15 Temperature Pulse Rate 127 H 128 H 130 H Pulse Rate [ 122 H Anterior Bilateral Throughout] Pulse Rate [ From Monitor] Respiratory 20 21 19 Rate Respiratory 32 H Rate [Anterior Bilateral Throughout] O2 Sat by Pulse 100 99 98 Oximetry 04/13/21 04/13/21 04/13/21 02:31 02:45 03:01 Temperature Pulse Rate 130 H 130 H 131 H Pulse Rate [ Anterior Bilateral Throughout] Pulse Rate [ From Monitor] Respiratory 18 17 17 Rate Respiratory Rate [Anterior Bilateral Throughout] O2 Sat by Pulse 99 96 96 Oximetry 04/13/21 04/13/21 04/13/21 03:15 03:31 03:44 Temperature 100.4 F H Pulse Rate 131 H 129 H Pulse Rate [ Anterior Bilateral Throughout] Pulse Rate [ From Monitor] Respiratory 16 17 Rate Respiratory Rate [Anterior Bilateral Throughout] O2 Sat by Pulse 96 95 Oximetry 04/13/21 04/13/21 04/13/21 03:45 04:00 04:01 Temperature Pulse Rate 129 H 127 H 127 H Pulse Rate [ Anterior Bilateral Throughout] Pulse Rate [ 127 H From Monitor] Respiratory 16 16 16 Rate Respiratory Rate [Anterior Bilateral Throughout] O2 Sat by Pulse 94 96 97 Oximetry 04/13/21 04/13/21 04/13/21 04:15 04:20 04:31 Temperature Pulse Rate 127 H 127 H 128 H Pulse Rate [ Anterior Bilateral Throughout] Pulse Rate [ From Monitor] Respiratory 16 17 Rate Respiratory Rate [Anterior Bilateral Throughout] O2 Sat by Pulse 97 97 96 Oximetry 04/13/21 04/13/21 04/13/21 04:45 05:01 05:15 Temperature Pulse Rate 128 H 128 H 128 H Pulse Rate [ Anterior Bilateral Throughout] Pulse Rate [ From Monitor] Respiratory 18 17 17 Rate Respiratory Rate [Anterior Bilateral Throughout] O2 Sat by Pulse 93 95 94 Oximetry 04/13/21 04/13/21 04/13/21 05:31 05:45 06:01 Temperature Pulse Rate 127 H 127 H 128 H Pulse Rate [ Anterior Bilateral Throughout] Pulse Rate [ From Monitor] Respiratory 17 17 17 Rate Respiratory Rate [Anterior Bilateral Throughout] O2 Sat by Pulse 96 97 97 Oximetry 04/13/21 04/13/21 04/13/21 06:15 06:31 06:45 Temperature Pulse Rate 130 H 131 H 130 H Pulse Rate [ Anterior Bilateral Throughout] Pulse Rate [ From Monitor] Respiratory 16 18 22 Rate Respiratory Rate [Anterior Bilateral Throughout] O2 Sat by Pulse 98 98 99 Oximetry 04/13/21 04/13/21 04/13/21 07:01 07:15 07:31 Temperature Pulse Rate 127 H 124 H 127 H Pulse Rate [ Anterior Bilateral Throughout] Pulse Rate [ From Monitor] Respiratory 17 16 28 H Rate Respiratory Rate [Anterior Bilateral Throughout] O2 Sat by Pulse 100 100 100 Oximetry 04/13/21 04/13/21 04/13/21 07:45 08:00 08:01 Temperature 100.8 F H Pulse Rate 124 H 122 H 120 H Pulse Rate [ Anterior Bilateral Throughout] Pulse Rate [ 115 H From Monitor] Respiratory 17 30 H 15 Rate Respiratory Rate [Anterior Bilateral Throughout] O2 Sat by Pulse 100 100 100 Oximetry 04/13/21 04/13/21 04/13/21 08:15 08:31 08:45 Temperature Pulse Rate 117 H 114 H 112 H Pulse Rate [ Anterior Bilateral Throughout] Pulse Rate [ From Monitor] Respiratory 15 14 13 Rate Respiratory Rate [Anterior Bilateral Throughout] O2 Sat by Pulse 100 100 100 Oximetry 04/13/21 04/13/21 04/13/21 09:01 09:15 09:25 Temperature Pulse Rate 115 H 113 H 119 H Pulse Rate [ Anterior Bilateral Throughout] Pulse Rate [ From Monitor] Respiratory 15 16 Rate Respiratory Rate [Anterior Bilateral Throughout] O2 Sat by Pulse 98 100 97 Oximetry 04/13/21 04/13/21 04/13/21 09:31 09:34 09:45 Temperature Pulse Rate 120 H 110 H Pulse Rate [ 119 H Anterior Bilateral Throughout] Pulse Rate [ From Monitor] Respiratory 17 15 Rate Respiratory 30 H Rate [Anterior Bilateral Throughout] O2 Sat by Pulse 100 100 Oximetry 04/13/21 04/13/21 04/13/21 10:01 10:15 10:31 Temperature Pulse Rate 102 H 100 H 100 H Pulse Rate [ Anterior Bilateral Throughout] Pulse Rate [ From Monitor] Respiratory 3 L 0 L 0 L Rate Respiratory Rate [Anterior Bilateral Throughout] O2 Sat by Pulse 100 97 98 Oximetry 04/13/21 04/13/21 04/13/21 10:45 11:01 11:16 Temperature Pulse Rate 98 H 99 H 97 H Pulse Rate [ Anterior Bilateral Throughout] Pulse Rate [ From Monitor] Respiratory 0 L 0 L 0 L Rate Respiratory Rate [Anterior Bilateral Throughout] O2 Sat by Pulse 99 100 100 Oximetry 04/13/21 04/13/21 04/13/21 11:30 11:46 11:47 Temperature 100.8 F H Pulse Rate 96 H 96 H Pulse Rate [ Anterior Bilateral Throughout] Pulse Rate [ From Monitor] Respiratory 0 L 0 L Rate Respiratory Rate [Anterior Bilateral Throughout] O2 Sat by Pulse 100 100 Oximetry 04/13/21 04/13/21 11:49 12:00 Temperature Pulse Rate 96 H Pulse Rate [ Anterior Bilateral Throughout] Pulse Rate [ 96 H From Monitor] Respiratory 30 H 0 L Rate Respiratory Rate [Anterior Bilateral Throughout] O2 Sat by Pulse 100 100 Oximetry Constitutional: appears uncomfortable, other (morbidly obese female with mild ventilator dyssynchrony) Eyes: non-icteric, other (scleral erythema / bleeding is improving) ENT: oropharynx moist, oropharyngeal exudate pre (serosanguinous), other (ETT 25 cm BALJINDER) Neck: supple, no lymphadenopathy, no JVD, other (large circumference) Effort: mildly labored Ascultation: Bilateral: diminished breath sounds, rhonchi Percussion: Bilateral: not dull Cardiovascular: regular rate and rhythm Gastrointestinal: normoactive bowel sounds, soft, non-tender, non-distended (protuberant) Integumentary: rash ( ), other Extremities: no cyanosis, pulses normal, no ischemia or petechiae, edema (1+) Neurologic: non-focal exam (grossly), pupils equal and round, CN II-XII normal, motor strength normal and, other (sedated) Psychiatric: other (unasble to assess) CBC and BMP: 04/13/21 04:44 04/13/21 04:44 ABG, PT/INR, D-dimer: ABG ABG pH 7.195 pH Units (7.350-7.450) L* 04/13/21 03:52 POC ABG pCO2 63.4 mmHg (32.0-48.0) H 04/09/21 21:00 ABG pCO2 68.6 mm Hg 04/13/21 03:52 POC ABG pO2 83.0 mmHg (83-108) 04/09/21 21:00 ABG pO2 98.9 mm Hg (80.0-90.0) H 04/13/21 03:52 POC ABG HCO3 23.8 04/09/21 21:00 ABG O2 Saturation 96.6 % (95.0-99.0) 04/13/21 03:52 PT/INR, D-dimer PT 16.0 Sec. (12.2-14.9) H 04/13/21 04:44 INR 1.16 (0.87-1.13) H 04/13/21 04:44 D-Dimer 2696.79 ng/mlDDU (0-234) H 04/08/21 04:40 Abnormal lab findings: Abnormal Labs 03/13/21 03/13/21 03/13/21 13:26 13:26 15:40 WBC RBC Hgb Hct MCH 27 L MCHC RDW 17.0 H Plt Count Lymph % (Auto) Ford # (Auto) Eos # (Auto) Seg Neutrophils % Lymphocytes % (Manual) Eosinophils % (Manual) Basophils % (Manual) Nucleated RBC % Seg Neutrophils # Seg Neutrophils # Man Lymphocytes # (Manual) Monocytes # (Manual) Eosinophils # (Manual) Basophils # (Manual) Percent Retic PT INR Fibrinogen D-Dimer ABG pH POC ABG pCO2 POC ABG pO2 ABG pO2 ABG HCO3 ABG O2 Saturation ABG Base Excess ABG Hemoglobin ABG Oxyhemoglobin ABG Sodium ABG Potassium ABG Chloride ABG Glucose Oxyhemoglobin Carboxyhemoglobin Sodium 136 L Potassium Chloride Carbon Dioxide BUN Creatinine Glucose 125 H 130 H POC Glucose Hemoglobin A1c Calcium Phosphorus Magnesium AST ALT Alkaline Phosphatase Lactate Dehydrogenase 235 H C-Reactive Protein 4.30 H Total Protein Albumin Triglycerides Arterial Blood Glucose Arterial Blood Ionized Calcium Urine WBC (Auto) U Epithel Cells (Auto) Urine Creatinine Random Vancomycin Coronavirus (PCR) Crossmatch 03/13/21 03/14/21 03/14/21 21:33 03:35 06:21 WBC 20.0 H RBC Hgb Hct MCH 27 L MCHC RDW 17.5 H Plt Count Lymph % (Auto) 7.8 L Ford # (Auto) 1.3 H Eos # (Auto) Seg Neutrophils % 85.4 H Lymphocytes % (Manual) Eosinophils % (Manual) Basophils % (Manual) Nucleated RBC % Seg Neutrophils # 17.1 H Seg Neutrophils # Man Lymphocytes # (Manual) Monocytes # (Manual) Eosinophils # (Manual) Basophils # (Manual) Percent Retic PT INR Fibrinogen D-Dimer ABG pH 7.323 L 7.234 L POC ABG pCO2 POC ABG pO2 ABG pO2 69.8 L ABG HCO3 ABG O2 Saturation 92.9 L 94.9 L ABG Base Excess -3.3 L -5.4 L ABG Hemoglobin ABG Oxyhemoglobin ABG Sodium ABG Potassium ABG Chloride ABG Glucose Oxyhemoglobin 91.2 L 93.2 L Carboxyhemoglobin Sodium Potassium Chloride Carbon Dioxide BUN Creatinine Glucose POC Glucose Hemoglobin A1c Calcium Phosphorus Magnesium AST ALT Alkaline Phosphatase Lactate Dehydrogenase C-Reactive Protein Total Protein Albumin Triglycerides Arterial Blood Glucose Arterial Blood Ionized Calcium Urine WBC (Auto) U Epithel Cells (Auto) Urine Creatinine Random Vancomycin Coronavirus (PCR) Crossmatch 03/14/21 03/14/21 03/14/21 06:21 07:47 11:21 WBC RBC Hgb Hct MCH MCHC RDW Plt Count Lymph % (Auto) Ford # (Auto) Eos # (Auto) Seg Neutrophils % Lymphocytes % (Manual) Eosinophils % (Manual) Basophils % (Manual) Nucleated RBC % Seg Neutrophils # Seg Neutrophils # Man Lymphocytes # (Manual) Monocytes # (Manual) Eosinophils # (Manual) Basophils # (Manual) Percent Retic PT INR Fibrinogen D-Dimer ABG pH POC ABG pCO2 POC ABG pO2 ABG pO2 ABG HCO3 ABG O2 Saturation ABG Base Excess ABG Hemoglobin ABG Oxyhemoglobin ABG Sodium ABG Potassium ABG Chloride ABG Glucose Oxyhemoglobin Carboxyhemoglobin Sodium 136 L 136 L Potassium 6.2 H* D 5.4 H Chloride Carbon Dioxide 21 L 21 L BUN Creatinine 1.5 H D 1.8 H Glucose 144 H 141 H POC Glucose 147 H Hemoglobin A1c Calcium Phosphorus Magnesium AST ALT Alkaline Phosphatase Lactate Dehydrogenase C-Reactive Protein Total Protein 8.7 H 9.2 H Albumin 3.8 L Triglycerides Arterial Blood Glucose Arterial Blood Ionized Calcium Urine WBC (Auto) U Epithel Cells (Auto) Urine Creatinine Random Vancomycin Coronavirus (PCR) Crossmatch 03/14/21 03/14/21 03/14/21 17:29 17:50 18:35 WBC RBC Hgb Hct MCH MCHC RDW Plt Count Lymph % (Auto) Ford # (Auto) Eos # (Auto) Seg Neutrophils % Lymphocytes % (Manual) Eosinophils % (Manual) Basophils % (Manual) Nucleated RBC % Seg Neutrophils # Seg Neutrophils # Man Lymphocytes # (Manual) Monocytes # (Manual) Eosinophils # (Manual) Basophils # (Manual) Percent Retic PT INR Fibrinogen D-Dimer ABG pH POC ABG pCO2 POC ABG pO2 ABG pO2 ABG HCO3 ABG O2 Saturation ABG Base Excess ABG Hemoglobin ABG Oxyhemoglobin ABG Sodium ABG Potassium ABG Chloride ABG Glucose Oxyhemoglobin Carboxyhemoglobin Sodium 135 L Potassium 6.4 H* Chloride Carbon Dioxide 15 L BUN 26 H Creatinine 3.4 H D Glucose 165 H POC Glucose 209 H Hemoglobin A1c Calcium Phosphorus Magnesium AST ALT Alkaline Phosphatase Lactate Dehydrogenase C-Reactive Protein Total Protein Albumin Triglycerides Arterial Blood Glucose Arterial Blood Ionized Calcium Urine WBC (Auto) U Epithel Cells (Auto) Urine Creatinine 40.1 H Random Vancomycin Coronavirus (PCR) Crossmatch 03/14/21 03/14/21 03/14/21 18:46 22:23 23:52 WBC RBC Hgb Hct MCH MCHC RDW Plt Count Lymph % (Auto) Ford # (Auto) Eos # (Auto) Seg Neutrophils % Lymphocytes % (Manual) Eosinophils % (Manual) Basophils % (Manual) Nucleated RBC % Seg Neutrophils # Seg Neutrophils # Man Lymphocytes # (Manual) Monocytes # (Manual) Eosinophils # (Manual) Basophils # (Manual) Percent Retic PT INR Fibrinogen D-Dimer ABG pH 7.270 L POC ABG pCO2 POC ABG pO2 63.4 L ABG pO2 ABG HCO3 ABG O2 Saturation ABG Base Excess ABG Hemoglobin ABG Oxyhemoglobin 90.2 L ABG Sodium 134.9 L ABG Potassium 5.3 H ABG Chloride ABG Glucose 134 H Oxyhemoglobin Carboxyhemoglobin Sodium 136 L Potassium 5.2 H Chloride Carbon Dioxide 20 L BUN 29 H Creatinine 3.6 H Glucose 236 H POC Glucose 128 H Hemoglobin A1c Calcium Phosphorus Magnesium AST ALT Alkaline Phosphatase Lactate Dehydrogenase C-Reactive Protein Total Protein Albumin 3.2 L Triglycerides Arterial Blood Glucose 134 H Arterial Blood Ionized Calcium Urine WBC (Auto) U Epithel Cells (Auto) Urine Creatinine Random Vancomycin Coronavirus (PCR) Crossmatch 03/14/21 03/15/21 03/15/21 Unknown 05:00 05:09 WBC 22.5 H RBC Hgb Hct MCH 27 L MCHC RDW 17.6 H Plt Count Lymph % (Auto) Ford # (Auto) Eos # (Auto) Seg Neutrophils % Lymphocytes % (Manual) Eosinophils % (Manual) Basophils % (Manual) Nucleated RBC % Seg Neutrophils # Seg Neutrophils # Man Lymphocytes # (Manual) Monocytes # (Manual) Eosinophils # (Manual) Basophils # (Manual) Percent Retic PT INR Fibrinogen D-Dimer ABG pH POC ABG pCO2 POC ABG pO2 ABG pO2 ABG HCO3 ABG O2 Saturation ABG Base Excess ABG Hemoglobin ABG Oxyhemoglobin ABG Sodium ABG Potassium ABG Chloride ABG Glucose Oxyhemoglobin Carboxyhemoglobin Sodium Potassium Chloride Carbon Dioxide BUN Creatinine Glucose POC Glucose 116 H Hemoglobin A1c Calcium Phosphorus Magnesium AST ALT Alkaline Phosphatase Lactate Dehydrogenase C-Reactive Protein Total Protein Albumin Triglycerides Arterial Blood Glucose Arterial Blood Ionized Calcium Urine WBC (Auto) U Epithel Cells (Auto) Urine Creatinine Random Vancomycin Coronavirus (PCR) Positive A Crossmatch 03/15/21 03/15/21 03/15/21 05:09 05:09 05:09 WBC RBC Hgb Hct MCH MCHC RDW Plt Count Lymph % (Auto) Ford # (Auto) Eos # (Auto) Seg Neutrophils % Lymphocytes % (Manual) Eosinophils % (Manual) Basophils % (Manual) Nucleated RBC % Seg Neutrophils # Seg Neutrophils # Man Lymphocytes # (Manual) Monocytes # (Manual) Eosinophils # (Manual) Basophils # (Manual) Percent Retic PT INR Fibrinogen D-Dimer ABG pH POC ABG pCO2 POC ABG pO2 ABG pO2 ABG HCO3 ABG O2 Saturation ABG Base Excess ABG Hemoglobin ABG Oxyhemoglobin ABG Sodium ABG Potassium ABG Chloride ABG Glucose Oxyhemoglobin Carboxyhemoglobin Sodium 136 L Potassium 6.5 H* D Chloride Carbon Dioxide 17 L BUN 41 H Creatinine 5.3 H Glucose 128 H POC Glucose Hemoglobin A1c 6.3 H Calcium Phosphorus Magnesium AST ALT Alkaline Phosphatase Lactate Dehydrogenase C-Reactive Protein 12.10 H Total Protein Albumin 3.1 L Triglycerides Arterial Blood Glucose Arterial Blood Ionized Calcium Urine WBC (Auto) U Epithel Cells (Auto) Urine Creatinine Random Vancomycin Coronavirus (PCR) Crossmatch 03/15/21 03/15/21 03/15/21 10:00 21:50 23:39 WBC RBC Hgb Hct MCH MCHC RDW Plt Count Lymph % (Auto) Ford # (Auto) Eos # (Auto) Seg Neutrophils % Lymphocytes % (Manual) Eosinophils % (Manual) Basophils % (Manual) Nucleated RBC % Seg Neutrophils # Seg Neutrophils # Man Lymphocytes # (Manual) Monocytes # (Manual) Eosinophils # (Manual) Basophils # (Manual) Percent Retic PT INR Fibrinogen D-Dimer ABG pH 7.098 L POC ABG pCO2 72.7 H POC ABG pO2 ABG pO2 162.5 H ABG HCO3 ABG O2 Saturation ABG Base Excess ABG Hemoglobin 10.1 L ABG Oxyhemoglobin ABG Sodium ABG Potassium 5.7 H ABG Chloride ABG Glucose Oxyhemoglobin Carboxyhemoglobin 0.4 L Sodium Potassium Chloride Carbon Dioxide BUN Creatinine Glucose POC Glucose 156 H Hemoglobin A1c Calcium Phosphorus Magnesium AST ALT Alkaline Phosphatase Lactate Dehydrogenase C-Reactive Protein Total Protein Albumin Triglycerides Arterial Blood Glucose Arterial Blood Ionized Calcium Urine WBC (Auto) U Epithel Cells (Auto) Urine Creatinine Random Vancomycin Coronavirus (PCR) Crossmatch 03/16/21 03/16/21 03/16/21 05:00 05:30 05:30 WBC 16.7 H RBC 3.59 L Hgb 9.6 L Hct 30.1 L MCH 27 L MCHC RDW 17.5 H Plt Count Lymph % (Auto) Ford # (Auto) Eos # (Auto) Seg Neutrophils % Lymphocytes % (Manual) Eosinophils % (Manual) Basophils % (Manual) Nucleated RBC % Seg Neutrophils # Seg Neutrophils # Man Lymphocytes # (Manual) Monocytes # (Manual) Eosinophils # (Manual) Basophils # (Manual) Percent Retic PT INR Fibrinogen D-Dimer ABG pH POC ABG pCO2 POC ABG pO2 ABG pO2 ABG HCO3 ABG O2 Saturation ABG Base Excess ABG Hemoglobin ABG Oxyhemoglobin ABG Sodium ABG Potassium ABG Chloride ABG Glucose Oxyhemoglobin Carboxyhemoglobin Sodium Potassium Chloride Carbon Dioxide BUN 46 H Creatinine 6.2 H Glucose 131 H POC Glucose Hemoglobin A1c Calcium Phosphorus 6.00 H D Magnesium AST ALT Alkaline Phosphatase Lactate Dehydrogenase 318 H C-Reactive Protein 18.60 H Total Protein Albumin 3.0 L Triglycerides Arterial Blood Glucose Arterial Blood Ionized Calcium Urine WBC (Auto) U Epithel Cells (Auto) Urine Creatinine Random Vancomycin Coronavirus (PCR) Crossmatch 03/16/21 03/16/21 03/16/21 05:51 06:37 08:58 WBC RBC Hgb Hct MCH MCHC RDW Plt Count Lymph % (Auto) Ford # (Auto) Eos # (Auto) Seg Neutrophils % Lymphocytes % (Manual) Eosinophils % (Manual) Basophils % (Manual) Nucleated RBC % Seg Neutrophils # Seg Neutrophils # Man Lymphocytes # (Manual) Monocytes # (Manual) Eosinophils # (Manual) Basophils # (Manual) Percent Retic PT INR Fibrinogen D-Dimer 3041.12 H ABG pH POC ABG pCO2 POC ABG pO2 ABG pO2 141.5 H ABG HCO3 ABG O2 Saturation ABG Base Excess ABG Hemoglobin 9.7 L ABG Oxyhemoglobin ABG Sodium ABG Potassium ABG Chloride ABG Glucose Oxyhemoglobin Carboxyhemoglobin Sodium Potassium Chloride Carbon Dioxide BUN Creatinine Glucose POC Glucose 126 H Hemoglobin A1c Calcium Phosphorus Magnesium AST ALT Alkaline Phosphatase Lactate Dehydrogenase C-Reactive Protein Total Protein Albumin Triglycerides Arterial Blood Glucose Arterial Blood Ionized Calcium Urine WBC (Auto) U Epithel Cells (Auto) Urine Creatinine Random Vancomycin Coronavirus (PCR) Crossmatch 03/16/21 03/16/21 03/16/21 12:11 16:51 21:00 WBC RBC Hgb Hct MCH MCHC RDW Plt Count Lymph % (Auto) Ford # (Auto) Eos # (Auto) Seg Neutrophils % Lymphocytes % (Manual) Eosinophils % (Manual) Basophils % (Manual) Nucleated RBC % Seg Neutrophils # Seg Neutrophils # Man Lymphocytes # (Manual) Monocytes # (Manual) Eosinophils # (Manual) Basophils # (Manual) Percent Retic PT INR Fibrinogen D-Dimer ABG pH 7.239 L POC ABG pCO2 61.5 H POC ABG pO2 80.8 L ABG pO2 ABG HCO3 ABG O2 Saturation ABG Base Excess ABG Hemoglobin 11.4 L ABG Oxyhemoglobin 93.5 L ABG Sodium ABG Potassium 5.4 H ABG Chloride ABG Glucose 137 H Oxyhemoglobin Carboxyhemoglobin 0.2 L Sodium Potassium Chloride Carbon Dioxide BUN Creatinine Glucose POC Glucose 156 H 133 H Hemoglobin A1c Calcium Phosphorus Magnesium AST ALT Alkaline Phosphatase Lactate Dehydrogenase C-Reactive Protein Total Protein Albumin Triglycerides Arterial Blood Glucose 137 H Arterial Blood Ionized Calcium Urine WBC (Auto) U Epithel Cells (Auto) Urine Creatinine Random Vancomycin Coronavirus (PCR) Crossmatch 03/16/21 03/17/21 03/17/21 23:42 05:23 05:23 WBC 18.4 H RBC Hgb Hct MCH 27 L MCHC RDW 17.4 H Plt Count Lymph % (Auto) Ford # (Auto) Eos # (Auto) Seg Neutrophils % Lymphocytes % (Manual) Eosinophils % (Manual) Basophils % (Manual) Nucleated RBC % Seg Neutrophils # Seg Neutrophils # Man Lymphocytes # (Manual) Monocytes # (Manual) Eosinophils # (Manual) Basophils # (Manual) Percent Retic PT INR Fibrinogen D-Dimer ABG pH POC ABG pCO2 POC ABG pO2 ABG pO2 ABG HCO3 ABG O2 Saturation ABG Base Excess ABG Hemoglobin ABG Oxyhemoglobin ABG Sodium ABG Potassium ABG Chloride ABG Glucose Oxyhemoglobin Carboxyhemoglobin Sodium Potassium 5.2 H Chloride Carbon Dioxide 21 L BUN 79 H Creatinine 8.6 H Glucose 124 H POC Glucose 133 H Hemoglobin A1c Calcium Phosphorus Magnesium AST ALT Alkaline Phosphatase Lactate Dehydrogenase C-Reactive Protein Total Protein Albumin 3.2 L Triglycerides 285 H Arterial Blood Glucose Arterial Blood Ionized Calcium Urine WBC (Auto) U Epithel Cells (Auto) Urine Creatinine Random Vancomycin Coronavirus (PCR) Crossmatch 03/17/21 03/17/21 03/17/21 05:23 10:48 12:20 WBC RBC Hgb Hct MCH MCHC RDW Plt Count Lymph % (Auto) Ford # (Auto) Eos # (Auto) Seg Neutrophils % Lymphocytes % (Manual) Eosinophils % (Manual) Basophils % (Manual) Nucleated RBC % Seg Neutrophils # Seg Neutrophils # Man Lymphocytes # (Manual) Monocytes # (Manual) Eosinophils # (Manual) Basophils # (Manual) Percent Retic PT INR Fibrinogen D-Dimer ABG pH 7.294 L POC ABG pCO2 POC ABG pO2 ABG pO2 90.3 H ABG HCO3 ABG O2 Saturation ABG Base Excess ABG Hemoglobin 9.9 L ABG Oxyhemoglobin ABG Sodium ABG Potassium ABG Chloride ABG Glucose Oxyhemoglobin Carboxyhemoglobin Sodium Potassium 5.2 H Chloride Carbon Dioxide 21 L BUN 79 H Creatinine 8.4 H Glucose 125 H POC Glucose 171 H Hemoglobin A1c Calcium Phosphorus 9.90 H D Magnesium 2.40 H AST ALT Alkaline Phosphatase Lactate Dehydrogenase C-Reactive Protein Total Protein Albumin Triglycerides Arterial Blood Glucose Arterial Blood Ionized Calcium Urine WBC (Auto) U Epithel Cells (Auto) Urine Creatinine Random Vancomycin Coronavirus (PCR) Crossmatch 03/17/21 03/17/21 03/18/21 17:24 21:00 04:30 WBC RBC Hgb Hct MCH MCHC RDW Plt Count Lymph % (Auto) Ford # (Auto) Eos # (Auto) Seg Neutrophils % Lymphocytes % (Manual) Eosinophils % (Manual) Basophils % (Manual) Nucleated RBC % Seg Neutrophils # Seg Neutrophils # Man Lymphocytes # (Manual) Monocytes # (Manual) Eosinophils # (Manual) Basophils # (Manual) Percent Retic PT INR Fibrinogen D-Dimer 9953.09 H ABG pH 7.310 L POC ABG pCO2 54.5 H POC ABG pO2 62.3 L ABG pO2 ABG HCO3 ABG O2 Saturation ABG Base Excess ABG Hemoglobin 10.2 L ABG Oxyhemoglobin 88.6 L ABG Sodium ABG Potassium 4.7 H ABG Chloride ABG Glucose 99 H Oxyhemoglobin Carboxyhemoglobin 0.3 L Sodium Potassium Chloride Carbon Dioxide BUN Creatinine Glucose POC Glucose 121 H Hemoglobin A1c Calcium Phosphorus Magnesium AST ALT Alkaline Phosphatase Lactate Dehydrogenase C-Reactive Protein Total Protein Albumin Triglycerides Arterial Blood Glucose 99 H Arterial Blood Ionized Calcium 4.3 L Urine WBC (Auto) U Epithel Cells (Auto) Urine Creatinine Random Vancomycin Coronavirus (PCR) Crossmatch 03/18/21 03/18/21 03/18/21 04:30 04:30 11:34 WBC 12.8 H RBC 3.49 L Hgb 9.4 L Hct 29.3 L MCH 27 L MCHC RDW 17.4 H Plt Count Lymph % (Auto) [place] # (Auto) Eos # (Auto) Seg Neutrophils % Lymphocytes % (Manual) Eosinophils % (Manual) Basophils % (Manual) Nucleated RBC % Seg Neutrophils # Seg Neutrophils # Man Lymphocytes # (Manual) Monocytes # (Manual) Eosinophils # (Manual) Basophils # (Manual) Percent Retic PT INR Fibrinogen D-Dimer ABG pH POC ABG pCO2 POC ABG pO2 ABG pO2 ABG HCO3 ABG O2 Saturation ABG Base Excess ABG Hemoglobin ABG Oxyhemoglobin ABG Sodium ABG Potassium ABG Chloride ABG Glucose Oxyhemoglobin Carboxyhemoglobin Sodium Potassium Chloride Carbon Dioxide BUN 69 H Creatinine 7.3 H Glucose POC Glucose 114 H Hemoglobin A1c Calcium 8.2 L Phosphorus 7.60 H D Magnesium AST ALT Alkaline Phosphatase Lactate Dehydrogenase 477 H C-Reactive Protein 6.90 H Total Protein Albumin Triglycerides Arterial Blood Glucose Arterial Blood Ionized Calcium Urine WBC (Auto) U Epithel Cells (Auto) Urine Creatinine Random Vancomycin Coronavirus (PCR) Crossmatch 03/18/21 03/19/21 03/19/21 21:44 04:13 04:13 WBC 13.7 H RBC 3.32 L Hgb 9.0 L Hct 28.1 L MCH 27 L MCHC RDW 16.9 H Plt Count Lymph % (Auto) [place] # (Auto) Eos # (Auto) Seg Neutrophils % Lymphocytes % (Manual) Eosinophils % (Manual) Basophils % (Manual) Nucleated RBC % Seg Neutrophils # Seg Neutrophils # Man Lymphocytes # (Manual) Monocytes # (Manual) Eosinophils # (Manual) Basophils # (Manual) Percent Retic PT INR Fibrinogen D-Dimer ABG pH 7.290 L POC ABG pCO2 POC ABG pO2 ABG pO2 119.7 H ABG HCO3 28.0 H ABG O2 Saturation ABG Base Excess ABG Hemoglobin 9.6 L ABG Oxyhemoglobin ABG Sodium ABG Potassium ABG Chloride ABG Glucose Oxyhemoglobin Carboxyhemoglobin Sodium Potassium Chloride Carbon Dioxide BUN Creatinine Glucose POC Glucose Hemoglobin A1c Calcium Phosphorus Magnesium AST ALT Alkaline Phosphatase Lactate Dehydrogenase C-Reactive Protein Total Protein Albumin Triglycerides Arterial Blood Glucose Arterial Blood Ionized Calcium Urine WBC (Auto) U Epithel Cells (Auto) Urine Creatinine Random Vancomycin 43.5 H Coronavirus (PCR) Crossmatch 03/19/21 03/19/21 03/19/21 04:13 05:59 11:40 WBC RBC Hgb Hct MCH MCHC RDW Plt Count Lymph % (Auto) [place] # (Auto) Eos # (Auto) Seg Neutrophils % Lymphocytes % (Manual) Eosinophils % (Manual) Basophils % (Manual) Nucleated RBC % Seg Neutrophils # Seg Neutrophils # Man Lymphocytes # (Manual) Monocytes # (Manual) Eosinophils # (Manual) Basophils # (Manual) Percent Retic PT INR Fibrinogen D-Dimer ABG pH POC ABG pCO2 POC ABG pO2 ABG pO2 ABG HCO3 ABG O2 Saturation ABG Base Excess ABG Hemoglobin ABG Oxyhemoglobin ABG Sodium ABG Potassium ABG Chloride ABG Glucose Oxyhemoglobin Carboxyhemoglobin Sodium Potassium Chloride Carbon Dioxide BUN 55 H Creatinine 7.0 H Glucose POC Glucose 116 H 145 H Hemoglobin A1c Calcium 8.1 L Phosphorus 7.90 H Magnesium AST ALT Alkaline Phosphatase Lactate Dehydrogenase C-Reactive Protein Total Protein Albumin Triglycerides Arterial Blood Glucose Arterial Blood Ionized Calcium Urine WBC (Auto) U Epithel Cells (Auto) Urine Creatinine Random Vancomycin Coronavirus (PCR) Crossmatch 03/19/21 03/19/21 03/20/21 17:01 23:41 04:00 WBC 15.6 H RBC 3.55 L Hgb 9.6 L Hct MCH 27 L MCHC RDW 16.8 H Plt Count 139 L Lymph % (Auto) [place] # (Auto) Eos # (Auto) Seg Neutrophils % Lymphocytes % (Manual) Eosinophils % (Manual) Basophils % (Manual) Nucleated RBC % Seg Neutrophils # Seg Neutrophils # Man Lymphocytes # (Manual) Monocytes # (Manual) Eosinophils # (Manual) Basophils # (Manual) Percent Retic PT INR Fibrinogen D-Dimer ABG pH POC ABG pCO2 POC ABG pO2 ABG pO2 ABG HCO3 ABG O2 Saturation ABG Base Excess ABG Hemoglobin ABG Oxyhemoglobin ABG Sodium ABG Potassium ABG Chloride ABG Glucose Oxyhemoglobin Carboxyhemoglobin Sodium Potassium Chloride Carbon Dioxide BUN Creatinine Glucose POC Glucose 111 H 118 H Hemoglobin A1c Calcium Phosphorus Magnesium AST ALT Alkaline Phosphatase Lactate Dehydrogenase C-Reactive Protein Total Protein Albumin Triglycerides Arterial Blood Glucose Arterial Blood Ionized Calcium Urine WBC (Auto) U Epithel Cells (Auto) Urine Creatinine Random Vancomycin Coronavirus (PCR) Crossmatch 03/20/21 03/20/21 03/20/21 04:00 04:00 04:37 WBC RBC Hgb Hct MCH MCHC RDW Plt Count Lymph % (Auto) [place] # (Auto) Eos # (Auto) Seg Neutrophils % Lymphocytes % (Manual) Eosinophils % (Manual) Basophils % (Manual) Nucleated RBC % Seg Neutrophils # Seg Neutrophils # Man Lymphocytes # (Manual) Monocytes # (Manual) Eosinophils # (Manual) Basophils # (Manual) Percent Retic PT INR Fibrinogen D-Dimer > 57679 H ABG pH 7.306 L POC ABG pCO2 POC ABG pO2 ABG pO2 ABG HCO3 27.9 H ABG O2 Saturation ABG Base Excess ABG Hemoglobin 5.2 L ABG Oxyhemoglobin ABG Sodium ABG Potassium ABG Chloride ABG Glucose Oxyhemoglobin Carboxyhemoglobin Sodium Potassium 5.2 H Chloride 97.6 L Carbon Dioxide BUN 52 H Creatinine 6.2 H Glucose 104 H POC Glucose Hemoglobin A1c Calcium Phosphorus 8.60 H Magnesium AST ALT Alkaline Phosphatase Lactate Dehydrogenase C-Reactive Protein 6.90 H Total Protein Albumin Triglycerides Arterial Blood Glucose Arterial Blood Ionized Calcium Urine WBC (Auto) U Epithel Cells (Auto) Urine Creatinine Random Vancomycin Coronavirus (PCR) Crossmatch 03/20/21 03/20/21 03/20/21 13:50 17:46 17:56 WBC RBC Hgb Hct MCH MCHC RDW Plt Count Lymph % (Auto) [place] # (Auto) Eos # (Auto) Seg Neutrophils % Lymphocytes % (Manual) Eosinophils % (Manual) Basophils % (Manual) Nucleated RBC % Seg Neutrophils # Seg Neutrophils # Man Lymphocytes # (Manual) Monocytes # (Manual) Eosinophils # (Manual) Basophils # (Manual) Percent Retic PT INR Fibrinogen D-Dimer ABG pH POC ABG pCO2 POC ABG pO2 ABG pO2 ABG HCO3 ABG O2 Saturation ABG Base Excess ABG Hemoglobin ABG Oxyhemoglobin ABG Sodium ABG Potassium ABG Chloride ABG Glucose Oxyhemoglobin Carboxyhemoglobin Sodium Potassium Chloride Carbon Dioxide BUN 63 H 43 H Creatinine Glucose POC Glucose 145 H Hemoglobin A1c Calcium Phosphorus Magnesium AST ALT Alkaline Phosphatase Lactate Dehydrogenase C-Reactive Protein Total Protein Albumin Triglycerides Arterial Blood Glucose Arterial Blood Ionized Calcium Urine WBC (Auto) U Epithel Cells (Auto) Urine Creatinine Random Vancomycin Coronavirus (PCR) Crossmatch 03/20/21 03/21/21 03/21/21 23:18 06:58 06:58 WBC 14.4 H RBC 3.41 L Hgb 9.5 L Hct 28.6 L MCH MCHC RDW 17.4 H Plt Count 107 L Lymph % (Auto) [place] # (Auto) Eos # (Auto) Seg Neutrophils % Lymphocytes % (Manual) Eosinophils % (Manual) Basophils % (Manual) Nucleated RBC % Seg Neutrophils # Seg Neutrophils # Man Lymphocytes # (Manual) Monocytes # (Manual) Eosinophils # (Manual) Basophils # (Manual) Percent Retic PT INR Fibrinogen D-Dimer ABG pH POC ABG pCO2 POC ABG pO2 ABG pO2 ABG HCO3 ABG O2 Saturation ABG Base Excess ABG Hemoglobin ABG Oxyhemoglobin ABG Sodium ABG Potassium ABG Chloride ABG Glucose Oxyhemoglobin Carboxyhemoglobin Sodium Potassium Chloride Carbon Dioxide BUN 60 H Creatinine 7.7 H Glucose POC Glucose 106 H Hemoglobin A1c Calcium Phosphorus Magnesium AST ALT Alkaline Phosphatase Lactate Dehydrogenase C-Reactive Protein Total Protein Albumin Triglycerides Arterial Blood Glucose Arterial Blood Ionized Calcium Urine WBC (Auto) U Epithel Cells (Auto) Urine Creatinine Random Vancomycin Coronavirus (PCR) Crossmatch 03/21/21 03/21/21 03/21/21 11:11 18:04 Unknown WBC RBC Hgb Hct MCH MCHC RDW Plt Count Lymph % (Auto) [place] # (Auto) Eos # (Auto) Seg Neutrophils % Lymphocytes % (Manual) Eosinophils % (Manual) Basophils % (Manual) Nucleated RBC % Seg Neutrophils # Seg Neutrophils # Man Lymphocytes # (Manual) Monocytes # (Manual) Eosinophils # (Manual) Basophils # (Manual) Percent Retic PT INR Fibrinogen D-Dimer ABG pH 7.270 L POC ABG pCO2 58.7 H POC ABG pO2 76.9 L ABG pO2 ABG HCO3 ABG O2 Saturation ABG Base Excess ABG Hemoglobin 9.9 L ABG Oxyhemoglobin 92.4 L ABG Sodium 135.8 L ABG Potassium 4.6 H ABG Chloride ABG Glucose Oxyhemoglobin Carboxyhemoglobin 0.1 L Sodium Potassium Chloride Carbon Dioxide BUN Creatinine Glucose POC Glucose 109 H 141 H Hemoglobin A1c Calcium Phosphorus Magnesium AST ALT Alkaline Phosphatase Lactate Dehydrogenase C-Reactive Protein Total Protein Albumin Triglycerides Arterial Blood Glucose Arterial Blood Ionized Calcium 4.5 L Urine WBC (Auto) U Epithel Cells (Auto) Urine Creatinine Random Vancomycin Coronavirus (PCR) Crossmatch 03/22/21 03/22/21 03/22/21 03:09 07:10 10:00 WBC RBC Hgb Hct MCH MCHC RDW Plt Count Lymph % (Auto) [place] # (Auto) Eos # (Auto) Seg Neutrophils % Lymphocytes % (Manual) Eosinophils % (Manual) Basophils % (Manual) Nucleated RBC % Seg Neutrophils # Seg Neutrophils # Man Lymphocytes # (Manual) Monocytes # (Manual) Eosinophils # (Manual) Basophils # (Manual) Percent Retic PT INR Fibrinogen D-Dimer ABG pH 7.206 L 7.245 L POC ABG pCO2 55.6 H POC ABG pO2 ABG pO2 90.6 H ABG HCO3 ABG O2 Saturation ABG Base Excess -4.4 L ABG Hemoglobin 9.0 L 8.4 L ABG Oxyhemoglobin ABG Sodium 123.4 L ABG Potassium 5.6 H ABG Chloride ABG Glucose 106 H Oxyhemoglobin 94.5 L Carboxyhemoglobin 0.1 L Sodium Potassium 5.4 H Chloride 96.8 L Carbon Dioxide BUN 89 H Creatinine 8.7 H Glucose 131 H POC Glucose Hemoglobin A1c Calcium Phosphorus Magnesium AST ALT Alkaline Phosphatase Lactate Dehydrogenase C-Reactive Protein 9.40 H Total Protein Albumin Triglycerides Arterial Blood Glucose 106 H Arterial Blood Ionized Calcium Urine WBC (Auto) U Epithel Cells (Auto) Urine Creatinine Random Vancomycin Coronavirus (PCR) Crossmatch 03/22/21 03/22/21 03/22/21 10:00 12:37 13:19 WBC RBC 3.05 L Hgb 8.4 L Hct 25.5 L MCH MCHC RDW 17.5 H Plt Count 108 L Lymph % (Auto) [place] # (Auto) Eos # (Auto) Seg Neutrophils % Lymphocytes % (Manual) Eosinophils % (Manual) Basophils % (Manual) Nucleated RBC % Seg Neutrophils # Seg Neutrophils # Man Lymphocytes # (Manual) Monocytes # (Manual) Eosinophils # (Manual) Basophils # (Manual) Percent Retic PT INR Fibrinogen D-Dimer ABG pH POC ABG pCO2 POC ABG pO2 ABG pO2 ABG HCO3 ABG O2 Saturation ABG Base Excess ABG Hemoglobin ABG Oxyhemoglobin ABG Sodium ABG Potassium ABG Chloride ABG Glucose Oxyhemoglobin Carboxyhemoglobin Sodium Potassium Chloride Carbon Dioxide BUN Creatinine 8.7 H Glucose POC Glucose 140 H Hemoglobin A1c Calcium Phosphorus Magnesium AST ALT Alkaline Phosphatase Lactate Dehydrogenase C-Reactive Protein Total Protein Albumin Triglycerides Arterial Blood Glucose Arterial Blood Ionized Calcium Urine WBC (Auto) U Epithel Cells (Auto) Urine Creatinine Random Vancomycin Coronavirus (PCR) Crossmatch 03/22/21 03/22/21 03/22/21 13:40 17:14 18:21 WBC RBC Hgb Hct MCH MCHC RDW Plt Count Lymph % (Auto) [place] # (Auto) Eos # (Auto) Seg Neutrophils % Lymphocytes % (Manual) Eosinophils % (Manual) Basophils % (Manual) Nucleated RBC % Seg Neutrophils # Seg Neutrophils # Man Lymphocytes # (Manual) Monocytes # (Manual) Eosinophils # (Manual) Basophils # (Manual) Percent Retic PT 15.8 H INR 1.14 H Fibrinogen D-Dimer > 31868 H ABG pH POC ABG pCO2 POC ABG pO2 ABG pO2 ABG HCO3 ABG O2 Saturation ABG Base Excess ABG Hemoglobin ABG Oxyhemoglobin ABG Sodium ABG Potassium ABG Chloride ABG Glucose Oxyhemoglobin Carboxyhemoglobin Sodium Potassium Chloride Carbon Dioxide BUN Creatinine Glucose POC Glucose 117 H 112 H Hemoglobin A1c Calcium Phosphorus Magnesium AST ALT Alkaline Phosphatase Lactate Dehydrogenase C-Reactive Protein Total Protein Albumin Triglycerides Arterial Blood Glucose Arterial Blood Ionized Calcium Urine WBC (Auto) U Epithel Cells (Auto) Urine Creatinine Random Vancomycin Coronavirus (PCR) Crossmatch 03/22/21 03/22/21 03/23/21 21:25 22:57 04:30 WBC RBC Hgb Hct MCH MCHC RDW Plt Count Lymph % (Auto) [place] # (Auto) Eos # (Auto) Seg Neutrophils % Lymphocytes % (Manual) Eosinophils % (Manual) Basophils % (Manual) Nucleated RBC % Seg Neutrophils # Seg Neutrophils # Man Lymphocytes # (Manual) Monocytes # (Manual) Eosinophils # (Manual) Basophils # (Manual) Percent Retic PT INR Fibrinogen D-Dimer ABG pH 7.188 L* POC ABG pCO2 POC ABG pO2 ABG pO2 97.9 H ABG HCO3 ABG O2 Saturation ABG Base Excess -3.7 L ABG Hemoglobin 9.2 L ABG Oxyhemoglobin ABG Sodium ABG Potassium ABG Chloride ABG Glucose Oxyhemoglobin 94.4 L Carboxyhemoglobin Sodium Potassium Chloride Carbon Dioxide BUN Creatinine Glucose POC Glucose 106 H Hemoglobin A1c Calcium Phosphorus Magnesium AST ALT Alkaline Phosphatase Lactate Dehydrogenase C-Reactive Protein Total Protein Albumin Triglycerides 381 H Arterial Blood Glucose Arterial Blood Ionized Calcium Urine WBC (Auto) U Epithel Cells (Auto) Urine Creatinine Random Vancomycin Coronavirus (PCR) Crossmatch 03/23/21 03/23/21 03/23/21 04:30 04:30 05:37 WBC 20.1 H RBC 3.17 L Hgb 8.6 L Hct 27.2 L MCH 27 L MCHC RDW 17.4 H Plt Count 118 L Lymph % (Auto) [place] # (Auto) Eos # (Auto) Seg Neutrophils % Lymphocytes % (Manual) Eosinophils % (Manual) Basophils % (Manual) Nucleated RBC % Seg Neutrophils # Seg Neutrophils # Man Lymphocytes # (Manual) Monocytes # (Manual) Eosinophils # (Manual) Basophils # (Manual) Percent Retic PT INR Fibrinogen D-Dimer ABG pH POC ABG pCO2 POC ABG pO2 ABG pO2 ABG HCO3 ABG O2 Saturation ABG Base Excess ABG Hemoglobin ABG Oxyhemoglobin ABG Sodium ABG Potassium ABG Chloride ABG Glucose Oxyhemoglobin Carboxyhemoglobin Sodium Potassium 5.2 H Chloride 97.1 L Carbon Dioxide 21 L BUN 82 H Creatinine 9.1 H Glucose 109 H POC Glucose 130 H Hemoglobin A1c Calcium Phosphorus 10.80 H Magnesium 3.50 H AST ALT Alkaline Phosphatase Lactate Dehydrogenase C-Reactive Protein Total Protein Albumin Triglycerides Arterial Blood Glucose Arterial Blood Ionized Calcium Urine WBC (Auto) U Epithel Cells (Auto) Urine Creatinine Random Vancomycin Coronavirus (PCR) Crossmatch 03/23/21 03/23/21 03/23/21 08:44 11:30 16:09 WBC RBC Hgb Hct MCH MCHC RDW Plt Count Lymph % (Auto) [place] # (Auto) Eos # (Auto) Seg Neutrophils % Lymphocytes % (Manual) Eosinophils % (Manual) Basophils % (Manual) Nucleated RBC % Seg Neutrophils # Seg Neutrophils # Man Lymphocytes # (Manual) Monocytes # (Manual) Eosinophils # (Manual) Basophils # (Manual) Percent Retic PT INR Fibrinogen D-Dimer ABG pH 7.190 L POC ABG pCO2 57.9 H POC ABG pO2 79.2 L ABG pO2 ABG HCO3 ABG O2 Saturation ABG Base Excess ABG Hemoglobin 11.8 L ABG Oxyhemoglobin 92.3 L ABG Sodium 131.0 L ABG Potassium 5.0 H ABG Chloride ABG Glucose 122 H Oxyhemoglobin Carboxyhemoglobin 0.4 L Sodium Potassium Chloride Carbon Dioxide BUN Creatinine Glucose POC Glucose 129 H 148 H Hemoglobin A1c Calcium Phosphorus Magnesium AST ALT Alkaline Phosphatase Lactate Dehydrogenase C-Reactive Protein Total Protein Albumin Triglycerides Arterial Blood Glucose 122 H Arterial Blood Ionized Calcium 4.4 L Urine WBC (Auto) U Epithel Cells (Auto) Urine Creatinine Random Vancomycin Coronavirus (PCR) Crossmatch 03/23/21 03/24/21 03/24/21 21:00 03:35 04:00 WBC 17.8 H RBC 2.96 L Hgb 8.1 L Hct 25.0 L MCH 27 L MCHC RDW 17.7 H Plt Count 124 L Lymph % (Auto) [place] # (Auto) Eos # (Auto) Seg Neutrophils % Lymphocytes % (Manual) Eosinophils % (Manual) Basophils % (Manual) Nucleated RBC % Seg Neutrophils # Seg Neutrophils # Man Lymphocytes # (Manual) Monocytes # (Manual) Eosinophils # (Manual) Basophils # (Manual) Percent Retic PT INR Fibrinogen D-Dimer ABG pH 7.223 L POC ABG pCO2 50.3 H POC ABG pO2 114.4 H ABG pO2 ABG HCO3 ABG O2 Saturation ABG Base Excess ABG Hemoglobin 8.8 L ABG Oxyhemoglobin ABG Sodium 130.4 L ABG Potassium 5.1 H ABG Chloride ABG Glucose 126 H Oxyhemoglobin Carboxyhemoglobin 0.2 L Sodium Potassium Chloride Carbon Dioxide BUN Creatinine Glucose POC Glucose 148 H Hemoglobin A1c Calcium Phosphorus Magnesium AST ALT Alkaline Phosphatase Lactate Dehydrogenase C-Reactive Protein Total Protein Albumin Triglycerides Arterial Blood Glucose 126 H Arterial Blood Ionized Calcium 4.4 L Urine WBC (Auto) U Epithel Cells (Auto) Urine Creatinine Random Vancomycin Coronavirus (PCR) Crossmatch 03/24/21 03/24/21 03/24/21 04:00 06:49 12:29 WBC RBC Hgb Hct MCH MCHC RDW Plt Count Lymph % (Auto) [place] # (Auto) Eos # (Auto) Seg Neutrophils % Lymphocytes % (Manual) Eosinophils % (Manual) Basophils % (Manual) Nucleated RBC % Seg Neutrophils # Seg Neutrophils # Man Lymphocytes # (Manual) Monocytes # (Manual) Eosinophils # (Manual) Basophils # (Manual) Percent Retic PT INR Fibrinogen D-Dimer ABG pH POC ABG pCO2 POC ABG pO2 ABG pO2 ABG HCO3 ABG O2 Saturation ABG Base Excess ABG Hemoglobin ABG Oxyhemoglobin ABG Sodium ABG Potassium ABG Chloride ABG Glucose Oxyhemoglobin Carboxyhemoglobin Sodium Potassium Chloride 95.6 L Carbon Dioxide 20 L BUN 108 H Creatinine 10.8 H Glucose 155 H POC Glucose 136 H 142 H Hemoglobin A1c Calcium Phosphorus Magnesium AST ALT Alkaline Phosphatase Lactate Dehydrogenase C-Reactive Protein Total Protein Albumin Triglycerides Arterial Blood Glucose Arterial Blood Ionized Calcium Urine WBC (Auto) U Epithel Cells (Auto) Urine Creatinine Random Vancomycin Coronavirus (PCR) Crossmatch 11/10/21 11/11/21 11/11/21 21:35 00:15 05:51 WBC RBC Hgb Hct MCH MCHC RDW Plt Count Lymph % (Auto) [place] # (Auto) Eos # (Auto) Seg Neutrophils % Lymphocytes % (Manual) Eosinophils % (Manual) Basophils % (Manual) Nucleated RBC % Seg Neutrophils # Seg Neutrophils # Man Lymphocytes # (Manual) Monocytes # (Manual) Eosinophils # (Manual) Basophils # (Manual) Percent Retic PT INR Fibrinogen D-Dimer ABG pH 7.241 L POC ABG pCO2 POC ABG pO2 ABG pO2 72.4 L ABG HCO3 ABG O2 Saturation 90.3 L ABG Base Excess ABG Hemoglobin 7.9 L ABG Oxyhemoglobin ABG Sodium ABG Potassium ABG Chloride ABG Glucose Oxyhemoglobin 88.4 L Carboxyhemoglobin Sodium Potassium Chloride Carbon Dioxide BUN Creatinine Glucose POC Glucose 110 H 121 H Hemoglobin A1c Calcium Phosphorus Magnesium AST ALT Alkaline Phosphatase Lactate Dehydrogenase C-Reactive Protein Total Protein Albumin Triglycerides Arterial Blood Glucose Arterial Blood Ionized Calcium Urine WBC (Auto) U Epithel Cells (Auto) Urine Creatinine Random Vancomycin Coronavirus (PCR) Crossmatch 03/25/21 03/25/21 03/25/21 05:54 05:54 12:21 WBC 12.4 H RBC 2.52 L Hgb 6.9 L Hct 21.1 L MCH MCHC RDW 17.4 H Plt Count 102 L Lymph % (Auto) [place] # (Auto) Eos # (Auto) Seg Neutrophils % Lymphocytes % (Manual) Eosinophils % (Manual) Basophils % (Manual) Nucleated RBC % Seg Neutrophils # Seg Neutrophils # Man Lymphocytes # (Manual) Monocytes # (Manual) Eosinophils # (Manual) Basophils # (Manual) Percent Retic PT INR Fibrinogen D-Dimer ABG pH POC ABG pCO2 POC ABG pO2 ABG pO2 ABG HCO3 ABG O2 Saturation ABG Base Excess ABG Hemoglobin ABG Oxyhemoglobin ABG Sodium ABG Potassium ABG Chloride ABG Glucose Oxyhemoglobin Carboxyhemoglobin Sodium Potassium Chloride 96.7 L Carbon Dioxide BUN 81 H Creatinine 8.1 H Glucose 116 H POC Glucose 138 H Hemoglobin A1c Calcium 8.2 L Phosphorus Magnesium AST ALT Alkaline Phosphatase Lactate Dehydrogenase C-Reactive Protein Total Protein Albumin Triglycerides Arterial Blood Glucose Arterial Blood Ionized Calcium Urine WBC (Auto) U Epithel Cells (Auto) Urine Creatinine Random Vancomycin Coronavirus (PCR) Crossmatch 11/11/21 11/11/21 11/11/21 13:45 17:32 21:30 WBC RBC Hgb Hct MCH MCHC RDW Plt Count Lymph % (Auto) [place] # (Auto) Eos # (Auto) Seg Neutrophils % Lymphocytes % (Manual) Eosinophils % (Manual) Basophils % (Manual) Nucleated RBC % Seg Neutrophils # Seg Neutrophils # Man Lymphocytes # (Manual) Monocytes # (Manual) Eosinophils # (Manual) Basophils # (Manual) Percent Retic PT INR Fibrinogen D-Dimer ABG pH POC ABG pCO2 POC ABG pO2 ABG pO2 70.2 L ABG HCO3 ABG O2 Saturation ABG Base Excess ABG Hemoglobin 6.8 L ABG Oxyhemoglobin ABG Sodium ABG Potassium ABG Chloride ABG Glucose Oxyhemoglobin 94.5 L Carboxyhemoglobin Sodium Potassium Chloride Carbon Dioxide BUN Creatinine Glucose POC Glucose 110 H Hemoglobin A1c Calcium Phosphorus Magnesium AST ALT Alkaline Phosphatase Lactate Dehydrogenase C-Reactive Protein Total Protein Albumin Triglycerides Arterial Blood Glucose Arterial Blood Ionized Calcium Urine WBC (Auto) U Epithel Cells (Auto) Urine Creatinine Random Vancomycin Coronavirus (PCR) Crossmatch See Detail 03/25/21 03/25/21 03/26/21 23:29 Unknown 05:15 WBC 12.4 H 14.0 H RBC 2.49 L 2.83 L Hgb 6.8 L 7.6 L Hct 20.9 L 23.6 L MCH 27 L 27 L MCHC RDW 18.0 H 17.1 H Plt Count 107 L 116 L Lymph % (Auto) [place] # (Auto) Eos # (Auto) Seg Neutrophils % Lymphocytes % (Manual) Eosinophils % (Manual) Basophils % (Manual) Nucleated RBC % Seg Neutrophils # Seg Neutrophils # Man Lymphocytes # (Manual) Monocytes # (Manual) Eosinophils # (Manual) Basophils # (Manual) Percent Retic PT INR Fibrinogen D-Dimer ABG pH POC ABG pCO2 POC ABG pO2 ABG pO2 ABG HCO3 ABG O2 Saturation ABG Base Excess ABG Hemoglobin ABG Oxyhemoglobin ABG Sodium ABG Potassium ABG Chloride ABG Glucose Oxyhemoglobin Carboxyhemoglobin Sodium Potassium Chloride Carbon Dioxide BUN Creatinine Glucose POC Glucose 113 H Hemoglobin A1c Calcium Phosphorus Magnesium AST ALT Alkaline Phosphatase Lactate Dehydrogenase C-Reactive Protein Total Protein Albumin Triglycerides Arterial Blood Glucose Arterial Blood Ionized Calcium Urine WBC (Auto) U Epithel Cells (Auto) Urine Creatinine Random Vancomycin Coronavirus (PCR) Crossmatch 03/26/21 03/26/21 03/26/21 05:15 05:35 09:50 WBC RBC Hgb Hct MCH MCHC RDW Plt Count Lymph % (Auto) [place] # (Auto) Eos # (Auto) Seg Neutrophils % Lymphocytes % (Manual) Eosinophils % (Manual) Basophils % (Manual) Nucleated RBC % Seg Neutrophils # Seg Neutrophils # Man Lymphocytes # (Manual) Monocytes # (Manual) Eosinophils # (Manual) Basophils # (Manual) Percent Retic PT INR Fibrinogen D-Dimer ABG pH POC ABG pCO2 POC ABG pO2 ABG pO2 79.9 L ABG HCO3 ABG O2 Saturation ABG Base Excess ABG Hemoglobin 7.1 L ABG Oxyhemoglobin ABG Sodium ABG Potassium ABG Chloride ABG Glucose Oxyhemoglobin 94.9 L Carboxyhemoglobin Sodium Potassium 3.4 L Chloride Carbon Dioxide BUN 70 H Creatinine 7.3 H Glucose 142 H POC Glucose 130 H Hemoglobin A1c Calcium 8.2 L Phosphorus Magnesium AST ALT Alkaline Phosphatase Lactate Dehydrogenase C-Reactive Protein Total Protein Albumin Triglycerides 254 H Arterial Blood Glucose Arterial Blood Ionized Calcium Urine WBC (Auto) U Epithel Cells (Auto) Urine Creatinine Random Vancomycin Coronavirus (PCR) Crossmatch 03/26/21 03/26/21 03/26/21 11:45 16:36 23:33 WBC RBC Hgb Hct MCH MCHC RDW Plt Count Lymph % (Auto) [place] # (Auto) Eos # (Auto) Seg Neutrophils % Lymphocytes % (Manual) Eosinophils % (Manual) Basophils % (Manual) Nucleated RBC % Seg Neutrophils # Seg Neutrophils # Man Lymphocytes # (Manual) Monocytes # (Manual) Eosinophils # (Manual) Basophils # (Manual) Percent Retic PT INR Fibrinogen D-Dimer ABG pH POC ABG pCO2 POC ABG pO2 ABG pO2 ABG HCO3 ABG O2 Saturation ABG Base Excess ABG Hemoglobin ABG Oxyhemoglobin ABG Sodium ABG Potassium ABG Chloride ABG Glucose Oxyhemoglobin Carboxyhemoglobin Sodium Potassium Chloride Carbon Dioxide BUN Creatinine Glucose POC Glucose 123 H 121 H 120 H Hemoglobin A1c Calcium Phosphorus Magnesium AST ALT Alkaline Phosphatase Lactate Dehydrogenase C-Reactive Protein Total Protein Albumin Triglycerides Arterial Blood Glucose Arterial Blood Ionized Calcium Urine WBC (Auto) U Epithel Cells (Auto) Urine Creatinine Random Vancomycin Coronavirus (PCR) Crossmatch 03/27/21 03/27/21 03/27/21 03:20 04:14 08:20 WBC 13.2 H RBC 2.82 L Hgb 7.9 L Hct 23.5 L MCH MCHC RDW 17.3 H Plt Count 125 L Lymph % (Auto) [place] # (Auto) Eos # (Auto) Seg Neutrophils % Lymphocytes % (Manual) Eosinophils % (Manual) Basophils % (Manual) Nucleated RBC % Seg Neutrophils # Seg Neutrophils # Man Lymphocytes # (Manual) Monocytes # (Manual) Eosinophils # (Manual) Basophils # (Manual) Percent Retic PT INR Fibrinogen D-Dimer ABG pH POC ABG pCO2 50.0 H POC ABG pO2 58.3 L ABG pO2 ABG HCO3 ABG O2 Saturation ABG Base Excess ABG Hemoglobin 11.3 L ABG Oxyhemoglobin 88.5 L ABG Sodium ABG Potassium ABG Chloride ABG Glucose 132 H Oxyhemoglobin Carboxyhemoglobin 0.2 L Sodium Potassium Chloride Carbon Dioxide BUN Creatinine Glucose POC Glucose 119 H Hemoglobin A1c Calcium Phosphorus Magnesium AST ALT Alkaline Phosphatase Lactate Dehydrogenase C-Reactive Protein Total Protein Albumin Triglycerides Arterial Blood Glucose 132 H Arterial Blood Ionized Calcium Urine WBC (Auto) U Epithel Cells (Auto) Urine Creatinine Random Vancomycin Coronavirus (PCR) Crossmatch 03/27/21 03/27/21 03/27/21 08:20 11:39 17:32 WBC RBC Hgb Hct MCH MCHC RDW Plt Count Lymph % (Auto) [place] # (Auto) Eos # (Auto) Seg Neutrophils % Lymphocytes % (Manual) Eosinophils % (Manual) Basophils % (Manual) Nucleated RBC % Seg Neutrophils # Seg Neutrophils # Man Lymphocytes # (Manual) Monocytes # (Manual) Eosinophils # (Manual) Basophils # (Manual) Percent Retic PT INR Fibrinogen D-Dimer ABG pH POC ABG pCO2 POC ABG pO2 ABG pO2 ABG HCO3 ABG O2 Saturation ABG Base Excess ABG Hemoglobin ABG Oxyhemoglobin ABG Sodium ABG Potassium ABG Chloride ABG Glucose Oxyhemoglobin Carboxyhemoglobin Sodium Potassium Chloride Carbon Dioxide BUN 57 H Creatinine 6.8 H Glucose 131 H POC Glucose 121 H 126 H Hemoglobin A1c Calcium Phosphorus Magnesium AST ALT Alkaline Phosphatase Lactate Dehydrogenase C-Reactive Protein Total Protein Albumin Triglycerides Arterial Blood Glucose Arterial Blood Ionized Calcium Urine WBC (Auto) U Epithel Cells (Auto) Urine Creatinine Random Vancomycin Coronavirus (PCR) Crossmatch 03/28/21 03/28/21 03/28/21 00:10 04:45 05:25 WBC RBC Hgb Hct MCH MCHC RDW Plt Count Lymph % (Auto) [place] # (Auto) Eos # (Auto) Seg Neutrophils % Lymphocytes % (Manual) Eosinophils % (Manual) Basophils % (Manual) Nucleated RBC % Seg Neutrophils # Seg Neutrophils # Man Lymphocytes # (Manual) Monocytes # (Manual) Eosinophils # (Manual) Basophils # (Manual) Percent Retic PT INR Fibrinogen D-Dimer ABG pH POC ABG pCO2 POC ABG pO2 ABG pO2 57.6 L ABG HCO3 27.1 H ABG O2 Saturation 88.5 L ABG Base Excess ABG Hemoglobin ABG Oxyhemoglobin ABG Sodium ABG Potassium ABG Chloride ABG Glucose Oxyhemoglobin 86.6 L Carboxyhemoglobin Sodium Potassium Chloride Carbon Dioxide BUN Creatinine Glucose POC Glucose 113 H 121 H Hemoglobin A1c Calcium Phosphorus Magnesium AST ALT Alkaline Phosphatase Lactate Dehydrogenase C-Reactive Protein Total Protein Albumin Triglycerides Arterial Blood Glucose Arterial Blood Ionized Calcium Urine WBC (Auto) U Epithel Cells (Auto) Urine Creatinine Random Vancomycin Coronavirus (PCR) Crossmatch 03/28/21 03/28/21 03/28/21 09:37 09:37 11:48 WBC 16.3 H RBC 2.92 L Hgb 8.2 L Hct 24.8 L MCH MCHC RDW 17.5 H Plt Count Lymph % (Auto) 10.7 L [place] # (Auto) 0.9 H Eos # (Auto) 0.6 H Seg Neutrophils % 80.0 H Lymphocytes % (Manual) Eosinophils % (Manual) Basophils % (Manual) Nucleated RBC % Seg Neutrophils # 13.0 H Seg Neutrophils # Man Lymphocytes # (Manual) Monocytes # (Manual) Eosinophils # (Manual) Basophils # (Manual) Percent Retic PT INR Fibrinogen D-Dimer ABG pH POC ABG pCO2 POC ABG pO2 ABG pO2 ABG HCO3 ABG O2 Saturation ABG Base Excess ABG Hemoglobin ABG Oxyhemoglobin ABG Sodium ABG Potassium ABG Chloride ABG Glucose Oxyhemoglobin Carboxyhemoglobin Sodium Potassium Chloride Carbon Dioxide BUN 61 H Creatinine 7.7 H Glucose 148 H POC Glucose 123 H Hemoglobin A1c Calcium Phosphorus Magnesium AST ALT Alkaline Phosphatase Lactate Dehydrogenase C-Reactive Protein Total Protein Albumin Triglycerides Arterial Blood Glucose Arterial Blood Ionized Calcium Urine WBC (Auto) U Epithel Cells (Auto) Urine Creatinine Random Vancomycin Coronavirus (PCR) Crossmatch 03/28/21 03/28/21 03/28/21 17:33 21:08 23:38 WBC RBC Hgb Hct MCH MCHC RDW Plt Count Lymph % (Auto) [place] # (Auto) Eos # (Auto) Seg Neutrophils % Lymphocytes % (Manual) Eosinophils % (Manual) Basophils % (Manual) Nucleated RBC % Seg Neutrophils # Seg Neutrophils # Man Lymphocytes # (Manual) Monocytes # (Manual) Eosinophils # (Manual) Basophils # (Manual) Percent Retic PT INR Fibrinogen D-Dimer ABG pH POC ABG pCO2 POC ABG pO2 80.5 L ABG pO2 ABG HCO3 ABG O2 Saturation ABG Base Excess ABG Hemoglobin 9.5 L ABG Oxyhemoglobin ABG Sodium 133.3 L ABG Potassium ABG Chloride ABG Glucose 134 H Oxyhemoglobin Carboxyhemoglobin 0.3 L Sodium Potassium Chloride Carbon Dioxide BUN Creatinine Glucose POC Glucose 128 H 112 H Hemoglobin A1c Calcium Phosphorus Magnesium AST ALT Alkaline Phosphatase Lactate Dehydrogenase C-Reactive Protein Total Protein Albumin Triglycerides Arterial Blood Glucose 134 H Arterial Blood Ionized Calcium Urine WBC (Auto) U Epithel Cells (Auto) Urine Creatinine Random Vancomycin Coronavirus (PCR) Crossmatch 03/29/21 03/29/21 03/29/21 04:45 04:45 04:45 WBC 17.5 H RBC 3.15 L Hgb 8.8 L Hct 27.2 L MCH MCHC RDW 17.9 H Plt Count 132 L Lymph % (Auto) [place] # (Auto) Eos # (Auto) Seg Neutrophils % Lymphocytes % (Manual) Eosinophils % (Manual) Basophils % (Manual) Nucleated RBC % Seg Neutrophils # Seg Neutrophils # Man Lymphocytes # (Manual) Monocytes # (Manual) Eosinophils # (Manual) Basophils # (Manual) Percent Retic PT INR Fibrinogen D-Dimer ABG pH POC ABG pCO2 POC ABG pO2 ABG pO2 ABG HCO3 ABG O2 Saturation ABG Base Excess ABG Hemoglobin ABG Oxyhemoglobin ABG Sodium ABG Potassium ABG Chloride ABG Glucose Oxyhemoglobin Carboxyhemoglobin Sodium Potassium Chloride 97.7 L Carbon Dioxide 21 L BUN 78 H Creatinine 9.5 H Glucose 132 H POC Glucose Hemoglobin A1c Calcium Phosphorus Magnesium AST ALT Alkaline Phosphatase Lactate Dehydrogenase C-Reactive Protein Total Protein Albumin 2.2 L Triglycerides 385 H Arterial Blood Glucose Arterial Blood Ionized Calcium Urine WBC (Auto) U Epithel Cells (Auto) Urine Creatinine Random Vancomycin Coronavirus (PCR) Crossmatch 03/29/21 03/29/21 03/29/21 11:35 16:50 21:06 WBC RBC Hgb Hct MCH MCHC RDW Plt Count Lymph % (Auto) [place] # (Auto) Eos # (Auto) Seg Neutrophils % Lymphocytes % (Manual) Eosinophils % (Manual) Basophils % (Manual) Nucleated RBC % Seg Neutrophils # Seg Neutrophils # Man Lymphocytes # (Manual) Monocytes # (Manual) Eosinophils # (Manual) Basophils # (Manual) Percent Retic PT INR Fibrinogen D-Dimer ABG pH POC ABG pCO2 POC ABG pO2 ABG pO2 64.9 L ABG HCO3 ABG O2 Saturation ABG Base Excess -5.2 L ABG Hemoglobin ABG Oxyhemoglobin ABG Sodium ABG Potassium ABG Chloride ABG Glucose Oxyhemoglobin 85.1 L Carboxyhemoglobin Sodium Potassium Chloride Carbon Dioxide BUN Creatinine Glucose POC Glucose 148 H 133 H Hemoglobin A1c Calcium Phosphorus Magnesium AST ALT Alkaline Phosphatase Lactate Dehydrogenase C-Reactive Protein Total Protein Albumin Triglycerides Arterial Blood Glucose Arterial Blood Ionized Calcium Urine WBC (Auto) U Epithel Cells (Auto) Urine Creatinine Random Vancomycin Coronavirus (PCR) Crossmatch 03/29/21 03/30/21 03/30/21 Unknown 00:13 04:00 WBC 15.7 H RBC 3.18 L Hgb 8.6 L Hct 27.3 L MCH 27 L MCHC RDW 18.0 H Plt Count 86 L Lymph % (Auto) [place] # (Auto) Eos # (Auto) Seg Neutrophils % Lymphocytes % (Manual) Eosinophils % (Manual) Basophils % (Manual) Nucleated RBC % Seg Neutrophils # Seg Neutrophils # Man Lymphocytes # (Manual) Monocytes # (Manual) Eosinophils # (Manual) Basophils # (Manual) Percent Retic PT INR Fibrinogen D-Dimer ABG pH 7.258 L POC ABG pCO2 POC ABG pO2 ABG pO2 ABG HCO3 ABG O2 Saturation ABG Base Excess -4.9 L ABG Hemoglobin 8.8 L ABG Oxyhemoglobin ABG Sodium ABG Potassium ABG Chloride ABG Glucose Oxyhemoglobin 93.9 L Carboxyhemoglobin Sodium Potassium Chloride Carbon Dioxide BUN Creatinine Glucose POC Glucose 129 H Hemoglobin A1c Calcium Phosphorus Magnesium AST ALT Alkaline Phosphatase Lactate Dehydrogenase C-Reactive Protein Total Protein Albumin Triglycerides Arterial Blood Glucose Arterial Blood Ionized Calcium Urine WBC (Auto) U Epithel Cells (Auto) Urine Creatinine Random Vancomycin Coronavirus (PCR) Crossmatch 03/30/21 03/30/21 03/30/21 04:00 04:00 06:02 WBC RBC Hgb Hct MCH MCHC RDW Plt Count Lymph % (Auto) [place] # (Auto) Eos # (Auto) Seg Neutrophils % Lymphocytes % (Manual) Eosinophils % (Manual) Basophils % (Manual) Nucleated RBC % Seg Neutrophils # Seg Neutrophils # Man Lymphocytes # (Manual) Monocytes # (Manual) Eosinophils # (Manual) Basophils # (Manual) Percent Retic PT INR Fibrinogen D-Dimer 2607.12 H ABG pH POC ABG pCO2 POC ABG pO2 ABG pO2 ABG HCO3 ABG O2 Saturation ABG Base Excess ABG Hemoglobin ABG Oxyhemoglobin ABG Sodium ABG Potassium ABG Chloride ABG Glucose Oxyhemoglobin Carboxyhemoglobin Sodium 133 L Potassium 5.2 H D Chloride 91.5 L Carbon Dioxide 18 L BUN 101 H Creatinine 10.6 H Glucose 149 H POC Glucose 130 H Hemoglobin A1c Calcium Phosphorus 10.30 H Magnesium AST ALT Alkaline Phosphatase Lactate Dehydrogenase C-Reactive Protein 21.50 H Total Protein Albumin Triglycerides Arterial Blood Glucose Arterial Blood Ionized Calcium Urine WBC (Auto) U Epithel Cells (Auto) Urine Creatinine Random Vancomycin Coronavirus (PCR) Crossmatch 03/30/21 03/30/21 03/30/21 10:36 11:48 17:20 WBC RBC Hgb Hct MCH MCHC RDW Plt Count Lymph % (Auto) [place] # (Auto) Eos # (Auto) Seg Neutrophils % Lymphocytes % (Manual) Eosinophils % (Manual) Basophils % (Manual) Nucleated RBC % Seg Neutrophils # Seg Neutrophils # Man Lymphocytes # (Manual) Monocytes # (Manual) Eosinophils # (Manual) Basophils # (Manual) Percent Retic PT INR Fibrinogen D-Dimer ABG pH 7.224 L POC ABG pCO2 49.1 H POC ABG pO2 61.5 L ABG pO2 ABG HCO3 ABG O2 Saturation ABG Base Excess ABG Hemoglobin 10.2 L ABG Oxyhemoglobin 86.2 L ABG Sodium 129.6 L ABG Potassium 5.4 H ABG Chloride 96.0 L ABG Glucose 161 H Oxyhemoglobin Carboxyhemoglobin Sodium Potassium Chloride Carbon Dioxide BUN Creatinine Glucose POC Glucose 163 H 130 H Hemoglobin A1c Calcium Phosphorus Magnesium AST ALT Alkaline Phosphatase Lactate Dehydrogenase C-Reactive Protein Total Protein Albumin Triglycerides Arterial Blood Glucose 161 H Arterial Blood Ionized Calcium 4.4 L Urine WBC (Auto) U Epithel Cells (Auto) Urine Creatinine Random Vancomycin Coronavirus (PCR) Crossmatch 03/30/21 03/31/21 03/31/21 23:49 00:28 05:20 WBC 17.3 H RBC 2.99 L Hgb 8.2 L Hct 25.3 L MCH 27 L MCHC RDW 18.3 H Plt Count 126 L Lymph % (Auto) [place] # (Auto) Eos # (Auto) Seg Neutrophils % Lymphocytes % (Manual) Eosinophils % (Manual) Basophils % (Manual) Nucleated RBC % Seg Neutrophils # Seg Neutrophils # Man Lymphocytes # (Manual) Monocytes # (Manual) Eosinophils # (Manual) Basophils # (Manual) Percent Retic PT INR Fibrinogen D-Dimer ABG pH 7.249 L POC ABG pCO2 POC ABG pO2 77.7 L ABG pO2 ABG HCO3 ABG O2 Saturation ABG Base Excess ABG Hemoglobin 9.0 L ABG Oxyhemoglobin 92.9 L ABG Sodium 130.4 L ABG Potassium 4.7 H ABG Chloride ABG Glucose 166 H Oxyhemoglobin Carboxyhemoglobin 0.4 L Sodium Potassium Chloride Carbon Dioxide BUN Creatinine Glucose POC Glucose 143 H Hemoglobin A1c Calcium Phosphorus Magnesium AST ALT Alkaline Phosphatase Lactate Dehydrogenase C-Reactive Protein Total Protein Albumin Triglycerides Arterial Blood Glucose 166 H Arterial Blood Ionized Calcium 4.3 L Urine WBC (Auto) U Epithel Cells (Auto) Urine Creatinine Random Vancomycin Coronavirus (PCR) Crossmatch 03/31/21 03/31/21 03/31/21 05:20 06:18 09:44 WBC RBC Hgb Hct MCH MCHC RDW Plt Count Lymph % (Auto) [place] # (Auto) Eos # (Auto) Seg Neutrophils % Lymphocytes % (Manual) Eosinophils % (Manual) Basophils % (Manual) Nucleated RBC % Seg Neutrophils # Seg Neutrophils # Man Lymphocytes # (Manual) Monocytes # (Manual) Eosinophils # (Manual) Basophils # (Manual) Percent Retic PT INR Fibrinogen D-Dimer ABG pH 7.247 L POC ABG pCO2 POC ABG pO2 ABG pO2 ABG HCO3 ABG O2 Saturation 94.4 L ABG Base Excess -5.1 L ABG Hemoglobin 8.2 L ABG Oxyhemoglobin ABG Sodium ABG Potassium ABG Chloride ABG Glucose Oxyhemoglobin 92.4 L Carboxyhemoglobin Sodium Potassium Chloride Carbon Dioxide BUN Creatinine Glucose POC Glucose 155 H Hemoglobin A1c Calcium Phosphorus 8.20 H D Magnesium AST ALT Alkaline Phosphatase Lactate Dehydrogenase C-Reactive Protein Total Protein Albumin Triglycerides Arterial Blood Glucose Arterial Blood Ionized Calcium Urine WBC (Auto) U Epithel Cells (Auto) Urine Creatinine Random Vancomycin Coronavirus (PCR) Crossmatch 03/31/21 03/31/21 03/31/21 09:49 09:55 09:55 WBC RBC Hgb Hct MCH MCHC RDW Plt Count Lymph % (Auto) [place] # (Auto) Eos # (Auto) Seg Neutrophils % Lymphocytes % (Manual) Eosinophils % (Manual) Basophils % (Manual) Nucleated RBC % Seg Neutrophils # Seg Neutrophils # Man Lymphocytes # (Manual) Monocytes # (Manual) Eosinophils # (Manual) Basophils # (Manual) Percent Retic 4.52 H PT 16.5 H INR 1.20 H Fibrinogen D-Dimer ABG pH POC ABG pCO2 POC ABG pO2 ABG pO2 ABG HCO3 ABG O2 Saturation ABG Base Excess ABG Hemoglobin ABG Oxyhemoglobin ABG Sodium ABG Potassium ABG Chloride ABG Glucose Oxyhemoglobin Carboxyhemoglobin Sodium 133 L Potassium Chloride 92.8 L Carbon Dioxide 20 L BUN 87 H Creatinine 8.9 H Glucose 177 H POC Glucose Hemoglobin A1c Calcium 8.2 L Phosphorus Magnesium AST 169 H ALT Alkaline Phosphatase 187 H Lactate Dehydrogenase C-Reactive Protein Total Protein Albumin 2.3 L Triglycerides Arterial Blood Glucose Arterial Blood Ionized Calcium Urine WBC (Auto) U Epithel Cells (Auto) Urine Creatinine Random Vancomycin Coronavirus (PCR) Crossmatch 03/31/21 03/31/21 03/31/21 09:55 09:55 11:25 WBC RBC Hgb Hct MCH MCHC RDW Plt Count Lymph % (Auto) [place] # (Auto) Eos # (Auto) Seg Neutrophils % Lymphocytes % (Manual) Eosinophils % (Manual) Basophils % (Manual) Nucleated RBC % Seg Neutrophils # Seg Neutrophils # Man Lymphocytes # (Manual) Monocytes # (Manual) Eosinophils # (Manual) Basophils # (Manual) Percent Retic PT INR Fibrinogen 491 H D-Dimer ABG pH POC ABG pCO2 POC ABG pO2 ABG pO2 ABG HCO3 ABG O2 Saturation ABG Base Excess ABG Hemoglobin ABG Oxyhemoglobin ABG Sodium ABG Potassium ABG Chloride ABG Glucose Oxyhemoglobin Carboxyhemoglobin Sodium Potassium Chloride Carbon Dioxide BUN Creatinine Glucose POC Glucose 178 H Hemoglobin A1c Calcium Phosphorus Magnesium AST ALT Alkaline Phosphatase Lactate Dehydrogenase 509 H C-Reactive Protein Total Protein Albumin Triglycerides Arterial Blood Glucose Arterial Blood Ionized Calcium Urine WBC (Auto) U Epithel Cells (Auto) Urine Creatinine Random Vancomycin Coronavirus (PCR) Crossmatch 03/31/21 03/31/21 03/31/21 12:30 17:40 21:00 WBC RBC Hgb Hct MCH MCHC RDW Plt Count Lymph % (Auto) [place] # (Auto) Eos # (Auto) Seg Neutrophils % Lymphocytes % (Manual) Eosinophils % (Manual) Basophils % (Manual) Nucleated RBC % Seg Neutrophils # Seg Neutrophils # Man Lymphocytes # (Manual) Monocytes # (Manual) Eosinophils # (Manual) Basophils # (Manual) Percent Retic PT INR Fibrinogen D-Dimer ABG pH 7.235 L 7.216 L POC ABG pCO2 POC ABG pO2 ABG pO2 76.8 L 113.9 H ABG HCO3 ABG O2 Saturation 93.2 L ABG Base Excess -5.3 L -7.3 L ABG Hemoglobin 6.3 L 8.0 L ABG Oxyhemoglobin ABG Sodium ABG Potassium ABG Chloride ABG Glucose Oxyhemoglobin 91.1 L Carboxyhemoglobin Sodium Potassium Chloride Carbon Dioxide BUN Creatinine Glucose POC Glucose 245 H Hemoglobin A1c Calcium Phosphorus Magnesium AST ALT Alkaline Phosphatase Lactate Dehydrogenase C-Reactive Protein Total Protein Albumin Triglycerides Arterial Blood Glucose Arterial Blood Ionized Calcium Urine WBC (Auto) U Epithel Cells (Auto) Urine Creatinine Random Vancomycin Coronavirus (PCR) Crossmatch 04/01/21 04/01/21 04/01/21 00:11 05:09 08:25 WBC RBC Hgb Hct MCH MCHC RDW Plt Count Lymph % (Auto) [place] # (Auto) Eos # (Auto) Seg Neutrophils % Lymphocytes % (Manual) Eosinophils % (Manual) Basophils % (Manual) Nucleated RBC % Seg Neutrophils # Seg Neutrophils # Man Lymphocytes # (Manual) Monocytes # (Manual) Eosinophils # (Manual) Basophils # (Manual) Percent Retic PT INR Fibrinogen D-Dimer ABG pH 7.225 L POC ABG pCO2 POC ABG pO2 ABG pO2 76.4 L ABG HCO3 ABG O2 Saturation 92.2 L ABG Base Excess -7.6 L ABG Hemoglobin 7.3 L ABG Oxyhemoglobin ABG Sodium ABG Potassium ABG Chloride ABG Glucose Oxyhemoglobin 90.2 L Carboxyhemoglobin Sodium Potassium Chloride Carbon Dioxide BUN Creatinine Glucose POC Glucose 209 H 173 H Hemoglobin A1c Calcium Phosphorus Magnesium AST ALT Alkaline Phosphatase Lactate Dehydrogenase C-Reactive Protein Total Protein Albumin Triglycerides Arterial Blood Glucose Arterial Blood Ionized Calcium Urine WBC (Auto) U Epithel Cells (Auto) Urine Creatinine Random Vancomycin Coronavirus (PCR) Crossmatch 04/01/21 04/01/21 04/01/21 12:01 12:05 17:55 WBC RBC Hgb Hct MCH MCHC RDW Plt Count Lymph % (Auto) [place] # (Auto) Eos # (Auto) Seg Neutrophils % Lymphocytes % (Manual) Eosinophils % (Manual) Basophils % (Manual) Nucleated RBC % Seg Neutrophils # Seg Neutrophils # Man Lymphocytes # (Manual) Monocytes # (Manual) Eosinophils # (Manual) Basophils # (Manual) Percent Retic PT INR Fibrinogen D-Dimer ABG pH POC ABG pCO2 POC ABG pO2 ABG pO2 ABG HCO3 ABG O2 Saturation ABG Base Excess ABG Hemoglobin ABG Oxyhemoglobin ABG Sodium ABG Potassium ABG Chloride ABG Glucose Oxyhemoglobin Carboxyhemoglobin Sodium Potassium 5.9 H Chloride Carbon Dioxide BUN Creatinine Glucose POC Glucose 202 H 217 H Hemoglobin A1c Calcium Phosphorus Magnesium AST ALT Alkaline Phosphatase Lactate Dehydrogenase C-Reactive Protein Total Protein Albumin Triglycerides Arterial Blood Glucose Arterial Blood Ionized Calcium Urine WBC (Auto) U Epithel Cells (Auto) Urine Creatinine Random Vancomycin Coronavirus (PCR) Crossmatch 04/01/21 04/01/21 04/01/21 Unknown Unknown 23:59 WBC 27.2 H RBC 3.08 L Hgb 8.4 L Hct 26.0 L MCH 27 L MCHC RDW 18.5 H Plt Count Lymph % (Auto) [place] # (Auto) Eos # (Auto) Seg Neutrophils % Lymphocytes % (Manual) Eosinophils % (Manual) Basophils % (Manual) Nucleated RBC % Seg Neutrophils # Seg Neutrophils # Man Lymphocytes # (Manual) Monocytes # (Manual) Eosinophils # (Manual) Basophils # (Manual) Percent Retic PT INR Fibrinogen D-Dimer ABG pH POC ABG pCO2 POC ABG pO2 ABG pO2 ABG HCO3 ABG O2 Saturation ABG Base Excess ABG Hemoglobin ABG Oxyhemoglobin ABG Sodium ABG Potassium ABG Chloride ABG Glucose Oxyhemoglobin Carboxyhemoglobin Sodium 132 L Potassium 6.6 H* D Chloride 91.3 L Carbon Dioxide 17 L BUN 104 H Creatinine 9.3 H Glucose 199 H POC Glucose 172 H Hemoglobin A1c Calcium 8.3 L Phosphorus Magnesium AST 236 H ALT 93 H Alkaline Phosphatase 191 H Lactate Dehydrogenase C-Reactive Protein Total Protein Albumin 2.4 L Triglycerides Arterial Blood Glucose Arterial Blood Ionized Calcium Urine WBC (Auto) U Epithel Cells (Auto) Urine Creatinine Random Vancomycin Coronavirus (PCR) Crossmatch 04/02/21 04/02/21 04/02/21 04:00 04:00 05:00 WBC 31.0 H RBC 2.93 L Hgb 8.0 L Hct 24.7 L MCH 27 L MCHC RDW 19.2 H Plt Count 131 L Lymph % (Auto) [place] # (Auto) Eos # (Auto) Seg Neutrophils % Lymphocytes % (Manual) Eosinophils % (Manual) Basophils % (Manual) Nucleated RBC % Seg Neutrophils # Seg Neutrophils # Man Lymphocytes # (Manual) Monocytes # (Manual) Eosinophils # (Manual) Basophils # (Manual) Percent Retic PT 16.0 H INR 1.16 H Fibrinogen D-Dimer ABG pH POC ABG pCO2 POC ABG pO2 ABG pO2 ABG HCO3 ABG O2 Saturation ABG Base Excess ABG Hemoglobin ABG Oxyhemoglobin ABG Sodium ABG Potassium ABG Chloride ABG Glucose Oxyhemoglobin Carboxyhemoglobin Sodium 135 L Potassium 5.3 H Chloride 96.1 L Carbon Dioxide 18 L BUN 80 H Creatinine 6.8 H Glucose 174 H POC Glucose Hemoglobin A1c Calcium 7.7 L Phosphorus Magnesium AST 106 H ALT 60 H Alkaline Phosphatase Lactate Dehydrogenase C-Reactive Protein Total Protein 5.9 L Albumin 3.5 L Triglycerides 579 H Arterial Blood Glucose Arterial Blood Ionized Calcium Urine WBC (Auto) U Epithel Cells (Auto) Urine Creatinine Random Vancomycin Coronavirus (PCR) Crossmatch 04/02/21 04/02/21 04/02/21 05:09 08:55 11:06 WBC RBC Hgb Hct MCH MCHC RDW Plt Count Lymph % (Auto) [place] # (Auto) Eos # (Auto) Seg Neutrophils % Lymphocytes % (Manual) Eosinophils % (Manual) Basophils % (Manual) Nucleated RBC % Seg Neutrophils # Seg Neutrophils # Man Lymphocytes # (Manual) Monocytes # (Manual) Eosinophils # (Manual) Basophils # (Manual) Percent Retic PT INR Fibrinogen D-Dimer ABG pH 7.188 L POC ABG pCO2 58.3 H POC ABG pO2 132.8 H ABG pO2 ABG HCO3 ABG O2 Saturation ABG Base Excess ABG Hemoglobin 8.4 L ABG Oxyhemoglobin ABG Sodium ABG Potassium 5.0 H ABG Chloride 97.0 L ABG Glucose 156 H Oxyhemoglobin Carboxyhemoglobin 0.4 L Sodium Potassium Chloride Carbon Dioxide BUN Creatinine Glucose POC Glucose 148 H 167 H Hemoglobin A1c Calcium Phosphorus Magnesium AST ALT Alkaline Phosphatase Lactate Dehydrogenase C-Reactive Protein Total Protein Albumin Triglycerides Arterial Blood Glucose 156 H Arterial Blood Ionized Calcium 4.2 L Urine WBC (Auto) U Epithel Cells (Auto) Urine Creatinine Random Vancomycin Coronavirus (PCR) Crossmatch 04/02/21 04/02/21 04/03/21 17:57 20:40 00:28 WBC RBC Hgb Hct MCH MCHC RDW Plt Count Lymph % (Auto) [place] # (Auto) Eos # (Auto) Seg Neutrophils % Lymphocytes % (Manual) Eosinophils % (Manual) Basophils % (Manual) Nucleated RBC % Seg Neutrophils # Seg Neutrophils # Man Lymphocytes # (Manual) Monocytes # (Manual) Eosinophils # (Manual) Basophils # (Manual) Percent Retic PT INR Fibrinogen D-Dimer ABG pH POC ABG pCO2 POC ABG pO2 ABG pO2 111.9 H ABG HCO3 18.9 L ABG O2 Saturation ABG Base Excess -9.9 L ABG Hemoglobin ABG Oxyhemoglobin ABG Sodium ABG Potassium ABG Chloride ABG Glucose Oxyhemoglobin Carboxyhemoglobin Sodium Potassium Chloride Carbon Dioxide BUN Creatinine Glucose POC Glucose 205 H 217 H Hemoglobin A1c Calcium Phosphorus Magnesium AST ALT Alkaline Phosphatase Lactate Dehydrogenase C-Reactive Protein Total Protein Albumin Triglycerides Arterial Blood Glucose Arterial Blood Ionized Calcium Urine WBC (Auto) U Epithel Cells (Auto) Urine Creatinine Random Vancomycin Coronavirus (PCR) Crossmatch 04/03/21 04/03/21 04/03/21 03:39 04:30 04:30 WBC 31.1 H RBC 2.78 L Hgb 8.0 L Hct 24.0 L MCH MCHC RDW 19.0 H Plt Count Lymph % (Auto) [place] # (Auto) Eos # (Auto) Seg Neutrophils % Lymphocytes % (Manual) Eosinophils % (Manual) 27.0 H Basophils % (Manual) 2.0 H Nucleated RBC % Seg Neutrophils # Seg Neutrophils # Man 13.7 H Lymphocytes # (Manual) 8.4 H Monocytes # (Manual) Eosinophils # (Manual) 8.4 H Basophils # (Manual) 0.6 H Percent Retic PT INR Fibrinogen D-Dimer ABG pH POC ABG pCO2 POC ABG pO2 ABG pO2 ABG HCO3 ABG O2 Saturation ABG Base Excess ABG Hemoglobin ABG Oxyhemoglobin ABG Sodium ABG Potassium ABG Chloride ABG Glucose Oxyhemoglobin Carboxyhemoglobin Sodium 132 L Potassium 5.8 H Chloride 94.5 L Carbon Dioxide 16 L BUN 97 H Creatinine 7.7 H Glucose 230 H POC Glucose 201 H Hemoglobin A1c Calcium 7.6 L Phosphorus Magnesium AST 47 H ALT Alkaline Phosphatase 146 H Lactate Dehydrogenase C-Reactive Protein Total Protein 5.2 L Albumin 3.4 L Triglycerides Arterial Blood Glucose Arterial Blood Ionized Calcium Urine WBC (Auto) U Epithel Cells (Auto) Urine Creatinine Random Vancomycin Coronavirus (PCR) Crossmatch 04/03/21 04/03/21 04/03/21 04:30 08:31 11:29 WBC RBC Hgb Hct MCH MCHC RDW Plt Count Lymph % (Auto) [place] # (Auto) Eos # (Auto) Seg Neutrophils % Lymphocytes % (Manual) Eosinophils % (Manual) Basophils % (Manual) Nucleated RBC % Seg Neutrophils # Seg Neutrophils # Man Lymphocytes # (Manual) Monocytes # (Manual) Eosinophils # (Manual) Basophils # (Manual) Percent Retic PT INR Fibrinogen D-Dimer ABG pH 7.195 L* POC ABG pCO2 POC ABG pO2 ABG pO2 102.6 H ABG HCO3 ABG O2 Saturation ABG Base Excess -7.2 L ABG Hemoglobin 8.0 L ABG Oxyhemoglobin ABG Sodium ABG Potassium ABG Chloride ABG Glucose Oxyhemoglobin 94.7 L Carboxyhemoglobin Sodium Potassium Chloride Carbon Dioxide BUN Creatinine Glucose POC Glucose 230 H Hemoglobin A1c Calcium Phosphorus 10.30 H Magnesium AST ALT Alkaline Phosphatase Lactate Dehydrogenase C-Reactive Protein Total Protein Albumin Triglycerides Arterial Blood Glucose Arterial Blood Ionized Calcium Urine WBC (Auto) U Epithel Cells (Auto) Urine Creatinine Random Vancomycin Coronavirus (PCR) Crossmatch 04/03/21 04/03/21 04/04/21 16:53 20:45 05:00 WBC 28.8 H RBC 2.64 L Hgb 8.7 L Hct 22.2 L MCH 33 H MCHC 39 H* RDW 18.6 H Plt Count Lymph % (Auto) [place] # (Auto) Eos # (Auto) Seg Neutrophils % Lymphocytes % (Manual) Eosinophils % (Manual) Basophils % (Manual) Nucleated RBC % Seg Neutrophils # Seg Neutrophils # Man Lymphocytes # (Manual) Monocytes # (Manual) Eosinophils # (Manual) Basophils # (Manual) Percent Retic PT INR Fibrinogen D-Dimer ABG pH POC ABG pCO2 POC ABG pO2 ABG pO2 ABG HCO3 ABG O2 Saturation ABG Base Excess ABG Hemoglobin ABG Oxyhemoglobin ABG Sodium ABG Potassium ABG Chloride ABG Glucose Oxyhemoglobin 94.8 L Carboxyhemoglobin Sodium Potassium Chloride Carbon Dioxide BUN Creatinine Glucose POC Glucose 227 H Hemoglobin A1c Calcium Phosphorus Magnesium AST ALT Alkaline Phosphatase Lactate Dehydrogenase C-Reactive Protein Total Protein Albumin Triglycerides Arterial Blood Glucose Arterial Blood Ionized Calcium Urine WBC (Auto) U Epithel Cells (Auto) Urine Creatinine Random Vancomycin Coronavirus (PCR) Crossmatch 04/04/21 04/04/21 04/04/21 05:29 07:55 09:20 WBC RBC Hgb Hct MCH MCHC RDW Plt Count Lymph % (Auto) [place] # (Auto) Eos # (Auto) Seg Neutrophils % Lymphocytes % (Manual) Eosinophils % (Manual) Basophils % (Manual) Nucleated RBC % Seg Neutrophils # Seg Neutrophils # Man Lymphocytes # (Manual) Monocytes # (Manual) Eosinophils # (Manual) Basophils # (Manual) Percent Retic PT INR Fibrinogen D-Dimer ABG pH POC ABG pCO2 POC ABG pO2 ABG pO2 ABG HCO3 ABG O2 Saturation ABG Base Excess ABG Hemoglobin ABG Oxyhemoglobin ABG Sodium ABG Potassium ABG Chloride ABG Glucose Oxyhemoglobin Carboxyhemoglobin Sodium 133 L Potassium Chloride 91.0 L Carbon Dioxide 20 L BUN 75 H Creatinine 4.7 H Glucose 184 H POC Glucose 133 H Hemoglobin A1c Calcium 7.3 L Phosphorus Magnesium AST < 5 L ALT < 5 L Alkaline Phosphatase 200 H Lactate Dehydrogenase C-Reactive Protein Total Protein 5.6 L Albumin 2.9 L Triglycerides Arterial Blood Glucose Arterial Blood Ionized Calcium Urine WBC (Auto) U Epithel Cells (Auto) Urine Creatinine Random Vancomycin Coronavirus (PCR) Crossmatch See Detail 04/04/21 04/04/21 04/04/21 12:01 14:06 17:05 WBC RBC Hgb Hct MCH MCHC RDW Plt Count Lymph % (Auto) [place] # (Auto) Eos # (Auto) Seg Neutrophils % Lymphocytes % (Manual) Eosinophils % (Manual) Basophils % (Manual) Nucleated RBC % Seg Neutrophils # Seg Neutrophils # Man Lymphocytes # (Manual) Monocytes # (Manual) Eosinophils # (Manual) Basophils # (Manual) Percent Retic PT INR Fibrinogen D-Dimer ABG pH 7.162 L* POC ABG pCO2 POC ABG pO2 ABG pO2 91.3 H ABG HCO3 ABG O2 Saturation 94.8 L ABG Base Excess -4.0 L ABG Hemoglobin 7.6 L ABG Oxyhemoglobin ABG Sodium ABG Potassium ABG Chloride ABG Glucose Oxyhemoglobin 92.4 L Carboxyhemoglobin Sodium Potassium Chloride Carbon Dioxide BUN Creatinine Glucose POC Glucose 199 H 166 H Hemoglobin A1c Calcium Phosphorus Magnesium AST ALT Alkaline Phosphatase Lactate Dehydrogenase C-Reactive Protein Total Protein Albumin Triglycerides Arterial Blood Glucose Arterial Blood Ionized Calcium Urine WBC (Auto) U Epithel Cells (Auto) Urine Creatinine Random Vancomycin Coronavirus (PCR) Crossmatch 04/04/21 04/04/21 04/05/21 21:14 23:30 05:20 WBC RBC Hgb Hct MCH MCHC RDW Plt Count Lymph % (Auto) [place] # (Auto) Eos # (Auto) Seg Neutrophils % Lymphocytes % (Manual) Eosinophils % (Manual) Basophils % (Manual) Nucleated RBC % Seg Neutrophils # Seg Neutrophils # Man Lymphocytes # (Manual) Monocytes # (Manual) Eosinophils # (Manual) Basophils # (Manual) Percent Retic PT INR Fibrinogen D-Dimer ABG pH 7.257 L POC ABG pCO2 POC ABG pO2 ABG pO2 73.8 L ABG HCO3 ABG O2 Saturation 91.6 L ABG Base Excess -2.7 L ABG Hemoglobin 8.6 L ABG Oxyhemoglobin ABG Sodium ABG Potassium ABG Chloride ABG Glucose Oxyhemoglobin 89.1 L Carboxyhemoglobin Sodium 131 L Potassium Chloride 91.2 L Carbon Dioxide 17 L BUN 85 H Creatinine 5.1 H Glucose 183 H POC Glucose 158 H Hemoglobin A1c Calcium 7.4 L Phosphorus Magnesium AST ALT Alkaline Phosphatase 190 H Lactate Dehydrogenase 394 H C-Reactive Protein Total Protein 5.8 L Albumin 2.7 L Triglycerides Arterial Blood Glucose Arterial Blood Ionized Calcium Urine WBC (Auto) U Epithel Cells (Auto) Urine Creatinine Random Vancomycin Coronavirus (PCR) Crossmatch 04/05/21 04/05/21 04/05/21 05:20 05:20 05:24 WBC 30.8 H RBC 2.83 L Hgb 8.4 L Hct 24.4 L MCH MCHC 35 H RDW 18.9 H Plt Count Lymph % (Auto) [place] # (Auto) Eos # (Auto) Seg Neutrophils % Lymphocytes % (Manual) Eosinophils % (Manual) Basophils % (Manual) Nucleated RBC % Seg Neutrophils # Seg Neutrophils # Man Lymphocytes # (Manual) Monocytes # (Manual) Eosinophils # (Manual) Basophils # (Manual) Percent Retic PT INR Fibrinogen D-Dimer ABG pH POC ABG pCO2 POC ABG pO2 ABG pO2 ABG HCO3 ABG O2 Saturation ABG Base Excess ABG Hemoglobin ABG Oxyhemoglobin ABG Sodium ABG Potassium ABG Chloride ABG Glucose Oxyhemoglobin Carboxyhemoglobin Sodium Potassium Chloride Carbon Dioxide BUN Creatinine Glucose POC Glucose 162 H Hemoglobin A1c Calcium Phosphorus 9.40 H Magnesium AST ALT Alkaline Phosphatase Lactate Dehydrogenase C-Reactive Protein Total Protein Albumin Triglycerides Arterial Blood Glucose Arterial Blood Ionized Calcium Urine WBC (Auto) U Epithel Cells (Auto) Urine Creatinine Random Vancomycin Coronavirus (PCR) Crossmatch 04/05/21 04/05/21 04/05/21 11:31 12:23 21:40 WBC RBC Hgb Hct MCH MCHC RDW Plt Count Lymph % (Auto) [place] # (Auto) Eos # (Auto) Seg Neutrophils % Lymphocytes % (Manual) Eosinophils % (Manual) Basophils % (Manual) Nucleated RBC % Seg Neutrophils # Seg Neutrophils # Man Lymphocytes # (Manual) Monocytes # (Manual) Eosinophils # (Manual) Basophils # (Manual) Percent Retic PT INR Fibrinogen D-Dimer ABG pH 7.325 L POC ABG pCO2 POC ABG pO2 ABG pO2 65.6 L ABG HCO3 ABG O2 Saturation 91.2 L ABG Base Excess ABG Hemoglobin 6.7 L ABG Oxyhemoglobin ABG Sodium ABG Potassium ABG Chloride ABG Glucose Oxyhemoglobin 89.0 L Carboxyhemoglobin Sodium Potassium Chloride Carbon Dioxide BUN Creatinine Glucose POC Glucose 196 H 190 H Hemoglobin A1c Calcium Phosphorus Magnesium AST ALT Alkaline Phosphatase Lactate Dehydrogenase C-Reactive Protein Total Protein Albumin Triglycerides Arterial Blood Glucose Arterial Blood Ionized Calcium Urine WBC (Auto) U Epithel Cells (Auto) Urine Creatinine Random Vancomycin Coronavirus (PCR) Crossmatch 04/05/21 04/06/21 04/06/21 23:53 05:35 06:00 WBC RBC Hgb Hct MCH MCHC RDW Plt Count Lymph % (Auto) [place] # (Auto) Eos # (Auto) Seg Neutrophils % Lymphocytes % (Manual) Eosinophils % (Manual) Basophils % (Manual) Nucleated RBC % Seg Neutrophils # Seg Neutrophils # Man Lymphocytes # (Manual) Monocytes # (Manual) Eosinophils # (Manual) Basophils # (Manual) Percent Retic PT INR Fibrinogen D-Dimer ABG pH POC ABG pCO2 POC ABG pO2 ABG pO2 ABG HCO3 ABG O2 Saturation ABG Base Excess ABG Hemoglobin ABG Oxyhemoglobin ABG Sodium ABG Potassium ABG Chloride ABG Glucose Oxyhemoglobin Carboxyhemoglobin Sodium 132 L Potassium Chloride 90.7 L Carbon Dioxide 21 L BUN 74 H Creatinine 4.3 H Glucose 156 H POC Glucose 192 H 139 H Hemoglobin A1c Calcium 7.9 L Phosphorus 6.90 H D Magnesium AST < 5 L ALT < 5 L Alkaline Phosphatase 185 H Lactate Dehydrogenase C-Reactive Protein Total Protein 5.7 L Albumin 2.5 L Triglycerides Arterial Blood Glucose Arterial Blood Ionized Calcium Urine WBC (Auto) U Epithel Cells (Auto) Urine Creatinine Random Vancomycin Coronavirus (PCR) Crossmatch 04/06/21 04/06/21 04/06/21 06:00 11:27 18:01 WBC 26.7 H RBC 2.39 L Hgb 6.9 L Hct 20.1 L MCH MCHC RDW 18.7 H Plt Count Lymph % (Auto) [place] # (Auto) Eos # (Auto) Seg Neutrophils % Lymphocytes % (Manual) Eosinophils % (Manual) Basophils % (Manual) Nucleated RBC % Seg Neutrophils # Seg Neutrophils # Man Lymphocytes # (Manual) Monocytes # (Manual) Eosinophils # (Manual) Basophils # (Manual) Percent Retic PT INR Fibrinogen D-Dimer ABG pH POC ABG pCO2 POC ABG pO2 ABG pO2 ABG HCO3 ABG O2 Saturation ABG Base Excess ABG Hemoglobin ABG Oxyhemoglobin ABG Sodium ABG Potassium ABG Chloride ABG Glucose Oxyhemoglobin Carboxyhemoglobin Sodium Potassium Chloride Carbon Dioxide BUN Creatinine Glucose POC Glucose 166 H 159 H Hemoglobin A1c Calcium Phosphorus Magnesium AST ALT Alkaline Phosphatase Lactate Dehydrogenase C-Reactive Protein Total Protein Albumin Triglycerides Arterial Blood Glucose Arterial Blood Ionized Calcium Urine WBC (Auto) U Epithel Cells (Auto) Urine Creatinine Random Vancomycin Coronavirus (PCR) Crossmatch 04/06/21 04/06/21 04/06/21 20:50 23:43 Unknown WBC RBC Hgb Hct MCH MCHC RDW Plt Count Lymph % (Auto) [place] # (Auto) Eos # (Auto) Seg Neutrophils % Lymphocytes % (Manual) Eosinophils % (Manual) Basophils % (Manual) Nucleated RBC % Seg Neutrophils # Seg Neutrophils # Man Lymphocytes # (Manual) Monocytes # (Manual) Eosinophils # (Manual) Basophils # (Manual) Percent Retic PT INR Fibrinogen D-Dimer ABG pH 7.303 L POC ABG pCO2 POC ABG pO2 67.9 L ABG pO2 ABG HCO3 ABG O2 Saturation ABG Base Excess ABG Hemoglobin 7.6 L ABG Oxyhemoglobin 90.2 L ABG Sodium 128.6 L ABG Potassium ABG Chloride 97.0 L ABG Glucose 154 H Oxyhemoglobin Carboxyhemoglobin Sodium Potassium Chloride Carbon Dioxide BUN Creatinine Glucose POC Glucose 137 H Hemoglobin A1c Calcium Phosphorus Magnesium AST ALT Alkaline Phosphatase Lactate Dehydrogenase C-Reactive Protein Total Protein Albumin Triglycerides Arterial Blood Glucose 154 H Arterial Blood Ionized Calcium Urine WBC (Auto) 148.0 H U Epithel Cells (Auto) 102.0 H Urine Creatinine Random Vancomycin Coronavirus (PCR) Crossmatch 04/07/21 04/07/21 04/07/21 03:50 03:50 03:50 WBC 26.7 H RBC 2.66 L Hgb 7.6 L Hct 23.2 L MCH MCHC RDW 18.5 H Plt Count Lymph % (Auto) [place] # (Auto) Eos # (Auto) Seg Neutrophils % Lymphocytes % (Manual) 10.0 L Eosinophils % (Manual) 19.0 H Basophils % (Manual) Nucleated RBC % 2.0 H Seg Neutrophils # Seg Neutrophils # Man 17.9 H Lymphocytes # (Manual) Monocytes # (Manual) 1.1 H Eosinophils # (Manual) 5.1 H Basophils # (Manual) Percent Retic PT INR Fibrinogen D-Dimer 2178 H ABG pH POC ABG pCO2 POC ABG pO2 ABG pO2 ABG HCO3 ABG O2 Saturation ABG Base Excess ABG Hemoglobin ABG Oxyhemoglobin ABG Sodium ABG Potassium ABG Chloride ABG Glucose Oxyhemoglobin Carboxyhemoglobin Sodium 130 L Potassium Chloride 91.1 L Carbon Dioxide 19 L BUN 92 H Creatinine 4.2 H Glucose 213 H POC Glucose Hemoglobin A1c Calcium 7.8 L Phosphorus Magnesium AST ALT Alkaline Phosphatase Lactate Dehydrogenase C-Reactive Protein Total Protein Albumin Triglycerides Arterial Blood Glucose Arterial Blood Ionized Calcium Urine WBC (Auto) U Epithel Cells (Auto) Urine Creatinine Random Vancomycin Coronavirus (PCR) Crossmatch 04/07/21 04/07/21 04/07/21 04:00 05:42 11:10 WBC RBC Hgb Hct MCH MCHC RDW Plt Count Lymph % (Auto) [place] # (Auto) Eos # (Auto) Seg Neutrophils % Lymphocytes % (Manual) Eosinophils % (Manual) Basophils % (Manual) Nucleated RBC % Seg Neutrophils # Seg Neutrophils # Man Lymphocytes # (Manual) Monocytes # (Manual) Eosinophils # (Manual) Basophils # (Manual) Percent Retic PT INR Fibrinogen D-Dimer ABG pH POC ABG pCO2 POC ABG pO2 ABG pO2 ABG HCO3 ABG O2 Saturation ABG Base Excess ABG Hemoglobin ABG Oxyhemoglobin ABG Sodium ABG Potassium ABG Chloride ABG Glucose Oxyhemoglobin Carboxyhemoglobin Sodium 129 L Potassium 5.1 H Chloride 89.6 L Carbon Dioxide 18 L BUN 94 H Creatinine 4.2 H Glucose 213 H POC Glucose 177 H 136 H Hemoglobin A1c Calcium 7.9 L Phosphorus Magnesium AST ALT Alkaline Phosphatase 167 H Lactate Dehydrogenase C-Reactive Protein Total Protein Albumin 2.8 L Triglycerides Arterial Blood Glucose Arterial Blood Ionized Calcium Urine WBC (Auto) U Epithel Cells (Auto) Urine Creatinine Random Vancomycin Coronavirus (PCR) Crossmatch 04/07/21 04/07/21 04/08/21 16:19 21:30 02:32 WBC RBC Hgb Hct MCH MCHC RDW Plt Count Lymph % (Auto) [place] # (Auto) Eos # (Auto) Seg Neutrophils % Lymphocytes % (Manual) Eosinophils % (Manual) Basophils % (Manual) Nucleated RBC % Seg Neutrophils # Seg Neutrophils # Man Lymphocytes # (Manual) Monocytes # (Manual) Eosinophils # (Manual) Basophils # (Manual) Percent Retic PT INR Fibrinogen D-Dimer ABG pH 7.209 L POC ABG pCO2 64.8 H POC ABG pO2 ABG pO2 ABG HCO3 ABG O2 Saturation ABG Base Excess ABG Hemoglobin 7.9 L ABG Oxyhemoglobin 93.8 L ABG Sodium 128.8 L ABG Potassium 4.6 H ABG Chloride 97.0 L ABG Glucose 170 H Oxyhemoglobin Carboxyhemoglobin 1.6 H Sodium Potassium Chloride Carbon Dioxide BUN Creatinine Glucose POC Glucose 155 H 141 H Hemoglobin A1c Calcium Phosphorus Magnesium AST ALT Alkaline Phosphatase Lactate Dehydrogenase C-Reactive Protein Total Protein Albumin Triglycerides Arterial Blood Glucose 170 H Arterial Blood Ionized Calcium 4.2 L Urine WBC (Auto) U Epithel Cells (Auto) Urine Creatinine Random Vancomycin Coronavirus (PCR) Crossmatch 04/08/21 04/08/21 04/08/21 04:00 04:40 04:40 WBC 23.7 H RBC 2.51 L Hgb 6.9 L Hct 22.1 L MCH 27 L MCHC RDW 18.4 H Plt Count Lymph % (Auto) [place] # (Auto) Eos # (Auto) Seg Neutrophils % Lymphocytes % (Manual) Eosinophils % (Manual) Basophils % (Manual) Nucleated RBC % Seg Neutrophils # Seg Neutrophils # Man Lymphocytes # (Manual) Monocytes # (Manual) Eosinophils # (Manual) Basophils # (Manual) Percent Retic PT INR Fibrinogen D-Dimer 2696.79 H ABG pH POC ABG pCO2 POC ABG pO2 ABG pO2 ABG HCO3 ABG O2 Saturation ABG Base Excess ABG Hemoglobin ABG Oxyhemoglobin ABG Sodium ABG Potassium ABG Chloride ABG Glucose Oxyhemoglobin Carboxyhemoglobin Sodium 133 L Potassium 5.5 H Chloride 93.5 L Carbon Dioxide BUN 78 H Creatinine 3.5 H Glucose 171 H POC Glucose Hemoglobin A1c Calcium 8.1 L Phosphorus 9.30 H Magnesium AST ALT Alkaline Phosphatase Lactate Dehydrogenase C-Reactive Protein 26.10 H Total Protein Albumin Triglycerides 487 H Arterial Blood Glucose Arterial Blood Ionized Calcium Urine WBC (Auto) U Epithel Cells (Auto) Urine Creatinine Random Vancomycin Coronavirus (PCR) Crossmatch 04/08/21 04/08/21 04/08/21 09:55 11:37 13:55 WBC RBC Hgb Hct MCH MCHC RDW Plt Count Lymph % (Auto) [place] # (Auto) Eos # (Auto) Seg Neutrophils % Lymphocytes % (Manual) Eosinophils % (Manual) Basophils % (Manual) Nucleated RBC % Seg Neutrophils # Seg Neutrophils # Man Lymphocytes # (Manual) Monocytes # (Manual) Eosinophils # (Manual) Basophils # (Manual) Percent Retic PT INR Fibrinogen D-Dimer ABG pH 7.114 L* POC ABG pCO2 POC ABG pO2 ABG pO2 75.9 L ABG HCO3 26.2 H ABG O2 Saturation 90.6 L ABG Base Excess -3.6 L ABG Hemoglobin 8.2 L ABG Oxyhemoglobin ABG Sodium ABG Potassium ABG Chloride ABG Glucose Oxyhemoglobin 88.0 L Carboxyhemoglobin Sodium Potassium Chloride Carbon Dioxide BUN Creatinine Glucose POC Glucose 156 H Hemoglobin A1c Calcium Phosphorus Magnesium AST ALT Alkaline Phosphatase Lactate Dehydrogenase C-Reactive Protein Total Protein Albumin Triglycerides Arterial Blood Glucose Arterial Blood Ionized Calcium Urine WBC (Auto) U Epithel Cells (Auto) Urine Creatinine Random Vancomycin Coronavirus (PCR) Crossmatch See Detail 04/08/21 04/08/21 04/08/21 17:04 20:53 23:56 WBC RBC Hgb Hct MCH MCHC RDW Plt Count Lymph % (Auto) [place] # (Auto) Eos # (Auto) Seg Neutrophils % Lymphocytes % (Manual) Eosinophils % (Manual) Basophils % (Manual) Nucleated RBC % Seg Neutrophils # Seg Neutrophils # Man Lymphocytes # (Manual) Monocytes # (Manual) Eosinophils # (Manual) Basophils # (Manual) Percent Retic PT INR Fibrinogen D-Dimer ABG pH 7.207 L POC ABG pCO2 49.8 H POC ABG pO2 ABG pO2 ABG HCO3 ABG O2 Saturation ABG Base Excess ABG Hemoglobin 7.6 L ABG Oxyhemoglobin ABG Sodium 127.3 L ABG Potassium 5.7 H ABG Chloride 96.0 L ABG Glucose 185 H Oxyhemoglobin Carboxyhemoglobin Sodium Potassium Chloride Carbon Dioxide BUN Creatinine Glucose POC Glucose 178 H 189 H Hemoglobin A1c Calcium Phosphorus Magnesium AST ALT Alkaline Phosphatase Lactate Dehydrogenase C-Reactive Protein Total Protein Albumin Triglycerides Arterial Blood Glucose 185 H Arterial Blood Ionized Calcium 4.3 L Urine WBC (Auto) U Epithel Cells (Auto) Urine Creatinine Random Vancomycin Coronavirus (PCR) Crossmatch 04/09/21 04/09/21 04/09/21 04:00 04:00 05:24 WBC 21.9 H RBC 2.70 L Hgb 7.8 L Hct 24.1 L MCH MCHC RDW 18.3 H Plt Count Lymph % (Auto) [place] # (Auto) Eos # (Auto) Seg Neutrophils % Lymphocytes % (Manual) Eosinophils % (Manual) Basophils % (Manual) Nucleated RBC % Seg Neutrophils # Seg Neutrophils # Man Lymphocytes # (Manual) Monocytes # (Manual) Eosinophils # (Manual) Basophils # (Manual) Percent Retic PT INR Fibrinogen D-Dimer ABG pH POC ABG pCO2 POC ABG pO2 ABG pO2 ABG HCO3 ABG O2 Saturation ABG Base Excess ABG Hemoglobin ABG Oxyhemoglobin ABG Sodium ABG Potassium ABG Chloride ABG Glucose Oxyhemoglobin Carboxyhemoglobin Sodium 131 L Potassium 6.3 H* Chloride 93.0 L Carbon Dioxide 19 L BUN 98 H Creatinine 4.6 H Glucose 208 H POC Glucose 191 H Hemoglobin A1c Calcium 8.1 L Phosphorus Magnesium AST ALT Alkaline Phosphatase Lactate Dehydrogenase C-Reactive Protein Total Protein Albumin Triglycerides Arterial Blood Glucose Arterial Blood Ionized Calcium Urine WBC (Auto) U Epithel Cells (Auto) Urine Creatinine Random Vancomycin Coronavirus (PCR) Crossmatch 04/09/21 04/09/21 04/09/21 12:42 16:59 21:00 WBC RBC Hgb Hct MCH MCHC RDW Plt Count Lymph % (Auto) [place] # (Auto) Eos # (Auto) Seg Neutrophils % Lymphocytes % (Manual) Eosinophils % (Manual) Basophils % (Manual) Nucleated RBC % Seg Neutrophils # Seg Neutrophils # Man Lymphocytes # (Manual) Monocytes # (Manual) Eosinophils # (Manual) Basophils # (Manual) Percent Retic PT INR Fibrinogen D-Dimer ABG pH 7.192 L POC ABG pCO2 63.4 H POC ABG pO2 ABG pO2 ABG HCO3 ABG O2 Saturation ABG Base Excess ABG Hemoglobin 8.7 L ABG Oxyhemoglobin 92.9 L ABG Sodium 135.1 L ABG Potassium ABG Chloride ABG Glucose 208 H Oxyhemoglobin Carboxyhemoglobin Sodium Potassium Chloride Carbon Dioxide BUN Creatinine Glucose POC Glucose 198 H 218 H Hemoglobin A1c Calcium Phosphorus Magnesium AST ALT Alkaline Phosphatase Lactate Dehydrogenase C-Reactive Protein Total Protein Albumin Triglycerides Arterial Blood Glucose 208 H Arterial Blood Ionized Calcium Urine WBC (Auto) U Epithel Cells (Auto) Urine Creatinine Random Vancomycin Coronavirus (PCR) Crossmatch 04/09/21 04/10/21 04/10/21 23:31 04:45 04:45 WBC 18.0 H RBC 2.65 L Hgb 7.4 L Hct 23.3 L MCH MCHC RDW 18.5 H Plt Count Lymph % (Auto) [place] # (Auto) Eos # (Auto) Seg Neutrophils % Lymphocytes % (Manual) Eosinophils % (Manual) Basophils % (Manual) Nucleated RBC % Seg Neutrophils # Seg Neutrophils # Man Lymphocytes # (Manual) Monocytes # (Manual) Eosinophils # (Manual) Basophils # (Manual) Percent Retic PT INR Fibrinogen D-Dimer ABG pH POC ABG pCO2 POC ABG pO2 ABG pO2 ABG HCO3 ABG O2 Saturation ABG Base Excess ABG Hemoglobin ABG Oxyhemoglobin ABG Sodium ABG Potassium ABG Chloride ABG Glucose Oxyhemoglobin Carboxyhemoglobin Sodium Potassium 5.5 H Chloride Carbon Dioxide 21 L BUN 83 H Creatinine 3.4 H Glucose 211 H POC Glucose 162 H Hemoglobin A1c Calcium Phosphorus Magnesium AST ALT Alkaline Phosphatase Lactate Dehydrogenase C-Reactive Protein Total Protein Albumin Triglycerides Arterial Blood Glucose Arterial Blood Ionized Calcium Urine WBC (Auto) U Epithel Cells (Auto) Urine Creatinine Random Vancomycin Coronavirus (PCR) Crossmatch 04/10/21 04/10/21 04/10/21 05:01 11:58 17:42 WBC RBC Hgb Hct MCH MCHC RDW Plt Count Lymph % (Auto) [place] # (Auto) Eos # (Auto) Seg Neutrophils % Lymphocytes % (Manual) Eosinophils % (Manual) Basophils % (Manual) Nucleated RBC % Seg Neutrophils # Seg Neutrophils # Man Lymphocytes # (Manual) Monocytes # (Manual) Eosinophils # (Manual) Basophils # (Manual) Percent Retic PT INR Fibrinogen D-Dimer ABG pH POC ABG pCO2 POC ABG pO2 ABG pO2 ABG HCO3 ABG O2 Saturation ABG Base Excess ABG Hemoglobin ABG Oxyhemoglobin ABG Sodium ABG Potassium ABG Chloride ABG Glucose Oxyhemoglobin Carboxyhemoglobin Sodium Potassium Chloride Carbon Dioxide BUN Creatinine Glucose POC Glucose 183 H 136 H 166 H Hemoglobin A1c Calcium Phosphorus Magnesium AST ALT Alkaline Phosphatase Lactate Dehydrogenase C-Reactive Protein Total Protein Albumin Triglycerides Arterial Blood Glucose Arterial Blood Ionized Calcium Urine WBC (Auto) U Epithel Cells (Auto) Urine Creatinine Random Vancomycin Coronavirus (PCR) Crossmatch 04/11/21 04/11/21 04/11/21 00:02 04:15 04:15 WBC 16.3 H RBC 2.53 L Hgb 7.0 L Hct 22.6 L MCH MCHC RDW 18.4 H Plt Count Lymph % (Auto) [place] # (Auto) Eos # (Auto) Seg Neutrophils % Lymphocytes % (Manual) Eosinophils % (Manual) Basophils % (Manual) Nucleated RBC % Seg Neutrophils # Seg Neutrophils # Man Lymphocytes # (Manual) Monocytes # (Manual) Eosinophils # (Manual) Basophils # (Manual) Percent Retic PT INR Fibrinogen D-Dimer ABG pH POC ABG pCO2 POC ABG pO2 ABG pO2 ABG HCO3 ABG O2 Saturation ABG Base Excess ABG Hemoglobin ABG Oxyhemoglobin ABG Sodium ABG Potassium ABG Chloride ABG Glucose Oxyhemoglobin Carboxyhemoglobin Sodium Potassium Chloride Carbon Dioxide BUN 71 H Creatinine 3.1 H Glucose 183 H POC Glucose 155 H Hemoglobin A1c Calcium Phosphorus Magnesium AST ALT Alkaline Phosphatase Lactate Dehydrogenase C-Reactive Protein Total Protein Albumin Triglycerides 406 H Arterial Blood Glucose Arterial Blood Ionized Calcium Urine WBC (Auto) U Epithel Cells (Auto) Urine Creatinine Random Vancomycin Coronavirus (PCR) Crossmatch 04/11/21 04/11/21 04/11/21 05:46 11:34 11:50 WBC RBC Hgb 6.7 L Hct 20.8 L MCH MCHC RDW Plt Count Lymph % (Auto) [place] # (Auto) Eos # (Auto) Seg Neutrophils % Lymphocytes % (Manual) Eosinophils % (Manual) Basophils % (Manual) Nucleated RBC % Seg Neutrophils # Seg Neutrophils # Man Lymphocytes # (Manual) Monocytes # (Manual) Eosinophils # (Manual) Basophils # (Manual) Percent Retic PT INR Fibrinogen D-Dimer ABG pH POC ABG pCO2 POC ABG pO2 ABG pO2 ABG HCO3 ABG O2 Saturation ABG Base Excess ABG Hemoglobin ABG Oxyhemoglobin ABG Sodium ABG Potassium ABG Chloride ABG Glucose Oxyhemoglobin Carboxyhemoglobin Sodium Potassium Chloride Carbon Dioxide BUN Creatinine Glucose POC Glucose 157 H 132 H Hemoglobin A1c Calcium Phosphorus Magnesium AST ALT Alkaline Phosphatase Lactate Dehydrogenase C-Reactive Protein Total Protein Albumin Triglycerides Arterial Blood Glucose Arterial Blood Ionized Calcium Urine WBC (Auto) U Epithel Cells (Auto) Urine Creatinine Random Vancomycin Coronavirus (PCR) Crossmatch 04/11/21 04/11/21 04/11/21 13:39 17:49 17:50 WBC RBC Hgb 6.5 L Hct 21.4 L MCH MCHC RDW Plt Count Lymph % (Auto) [place] # (Auto) Eos # (Auto) Seg Neutrophils % Lymphocytes % (Manual) Eosinophils % (Manual) Basophils % (Manual) Nucleated RBC % Seg Neutrophils # Seg Neutrophils # Man Lymphocytes # (Manual) Monocytes # (Manual) Eosinophils # (Manual) Basophils # (Manual) Percent Retic PT INR Fibrinogen D-Dimer ABG pH POC ABG pCO2 POC ABG pO2 ABG pO2 ABG HCO3 ABG O2 Saturation ABG Base Excess ABG Hemoglobin ABG Oxyhemoglobin ABG Sodium ABG Potassium ABG Chloride ABG Glucose Oxyhemoglobin Carboxyhemoglobin Sodium Potassium Chloride Carbon Dioxide BUN Creatinine Glucose POC Glucose 136 H Hemoglobin A1c Calcium Phosphorus Magnesium AST ALT Alkaline Phosphatase Lactate Dehydrogenase C-Reactive Protein Total Protein Albumin Triglycerides Arterial Blood Glucose Arterial Blood Ionized Calcium Urine WBC (Auto) U Epithel Cells (Auto) Urine Creatinine Random Vancomycin Coronavirus (PCR) Crossmatch See Detail 04/12/21 04/12/21 04/12/21 00:25 00:29 02:52 WBC RBC Hgb 7.4 L Hct 23.5 L MCH MCHC RDW Plt Count Lymph % (Auto) [place] # (Auto) Eos # (Auto) Seg Neutrophils % Lymphocytes % (Manual) Eosinophils % (Manual) Basophils % (Manual) Nucleated RBC % Seg Neutrophils # Seg Neutrophils # Man Lymphocytes # (Manual) Monocytes # (Manual) Eosinophils # (Manual) Basophils # (Manual) Percent Retic PT INR Fibrinogen D-Dimer ABG pH 7.253 L POC ABG pCO2 POC ABG pO2 ABG pO2 79.6 L ABG HCO3 ABG O2 Saturation 94.1 L ABG Base Excess -3.6 L ABG Hemoglobin 8.1 L ABG Oxyhemoglobin ABG Sodium ABG Potassium ABG Chloride ABG Glucose Oxyhemoglobin 93.6 L Carboxyhemoglobin Sodium Potassium Chloride Carbon Dioxide BUN Creatinine Glucose POC Glucose 125 H Hemoglobin A1c Calcium Phosphorus Magnesium AST ALT Alkaline Phosphatase Lactate Dehydrogenase C-Reactive Protein Total Protein Albumin Triglycerides Arterial Blood Glucose Arterial Blood Ionized Calcium Urine WBC (Auto) U Epithel Cells (Auto) Urine Creatinine Random Vancomycin Coronavirus (PCR) Crossmatch 04/12/21 04/12/21 04/12/21 04:30 04:30 05:41 WBC 17.5 H RBC 2.68 L Hgb 7.6 L Hct 24.0 L MCH MCHC RDW 18.0 H Plt Count Lymph % (Auto) [place] # (Auto) Eos # (Auto) Seg Neutrophils % Lymphocytes % (Manual) Eosinophils % (Manual) Basophils % (Manual) Nucleated RBC % Seg Neutrophils # Seg Neutrophils # Man Lymphocytes # (Manual) Monocytes # (Manual) Eosinophils # (Manual) Basophils # (Manual) Percent Retic PT INR Fibrinogen D-Dimer ABG pH POC ABG pCO2 POC ABG pO2 ABG pO2 ABG HCO3 ABG O2 Saturation ABG Base Excess ABG Hemoglobin ABG Oxyhemoglobin ABG Sodium ABG Potassium ABG Chloride ABG Glucose Oxyhemoglobin Carboxyhemoglobin Sodium Potassium Chloride Carbon Dioxide BUN 87 H Creatinine 4.5 H Glucose 136 H POC Glucose 115 H Hemoglobin A1c Calcium Phosphorus 6.50 H Magnesium AST ALT Alkaline Phosphatase Lactate Dehydrogenase C-Reactive Protein Total Protein Albumin Triglycerides Arterial Blood Glucose Arterial Blood Ionized Calcium Urine WBC (Auto) U Epithel Cells (Auto) Urine Creatinine Random Vancomycin Coronavirus (PCR) Crossmatch 04/12/21 04/12/21 04/13/21 11:57 17:19 00:24 WBC RBC Hgb Hct MCH MCHC RDW Plt Count Lymph % (Auto) Ford # (Auto) Eos # (Auto) Seg Neutrophils % Lymphocytes % (Manual) Eosinophils % (Manual) Basophils % (Manual) Nucleated RBC % Seg Neutrophils # Seg Neutrophils # Man Lymphocytes # (Manual) Monocytes # (Manual) Eosinophils # (Manual) Basophils # (Manual) Percent Retic PT INR Fibrinogen D-Dimer ABG pH POC ABG pCO2 POC ABG pO2 ABG pO2 ABG HCO3 ABG O2 Saturation ABG Base Excess ABG Hemoglobin ABG Oxyhemoglobin ABG Sodium ABG Potassium ABG Chloride ABG Glucose Oxyhemoglobin Carboxyhemoglobin Sodium Potassium Chloride Carbon Dioxide BUN Creatinine Glucose POC Glucose 137 H 177 H 188 H Hemoglobin A1c Calcium Phosphorus Magnesium AST ALT Alkaline Phosphatase Lactate Dehydrogenase C-Reactive Protein Total Protein Albumin Triglycerides Arterial Blood Glucose Arterial Blood Ionized Calcium Urine WBC (Auto) U Epithel Cells (Auto) Urine Creatinine Random Vancomycin Coronavirus (PCR) Crossmatch 04/13/21 04/13/21 04/13/21 03:52 04:44 04:44 WBC 13.1 H RBC 2.57 L Hgb 7.3 L Hct 23.2 L MCH MCHC RDW 17.6 H Plt Count 73 L Lymph % (Auto) Ford # (Auto) Eos # (Auto) Seg Neutrophils % Lymphocytes % (Manual) Eosinophils % (Manual) Basophils % (Manual) Nucleated RBC % Seg Neutrophils # Seg Neutrophils # Man Lymphocytes # (Manual) Monocytes # (Manual) Eosinophils # (Manual) Basophils # (Manual) Percent Retic PT 16.0 H INR 1.16 H Fibrinogen D-Dimer ABG pH 7.195 L* POC ABG pCO2 POC ABG pO2 ABG pO2 98.9 H ABG HCO3 ABG O2 Saturation ABG Base Excess -2.9 L ABG Hemoglobin 7.4 L ABG Oxyhemoglobin ABG Sodium ABG Potassium ABG Chloride ABG Glucose Oxyhemoglobin 94.3 L Carboxyhemoglobin Sodium Potassium Chloride Carbon Dioxide BUN Creatinine Glucose POC Glucose Hemoglobin A1c Calcium Phosphorus Magnesium AST ALT Alkaline Phosphatase Lactate Dehydrogenase C-Reactive Protein Total Protein Albumin Triglycerides Arterial Blood Glucose Arterial Blood Ionized Calcium Urine WBC (Auto) U Epithel Cells (Auto) Urine Creatinine Random Vancomycin Coronavirus (PCR) Crossmatch 04/13/21 04/13/21 04/13/21 04:44 05:26 11:32 WBC RBC Hgb Hct MCH MCHC RDW Plt Count Lymph % (Auto) Ford # (Auto) Eos # (Auto) Seg Neutrophils % Lymphocytes % (Manual) Eosinophils % (Manual) Basophils % (Manual) Nucleated RBC % Seg Neutrophils # Seg Neutrophils # Man Lymphocytes # (Manual) Monocytes # (Manual) Eosinophils # (Manual) Basophils # (Manual) Percent Retic PT INR Fibrinogen D-Dimer ABG pH POC ABG pCO2 POC ABG pO2 ABG pO2 ABG HCO3 ABG O2 Saturation ABG Base Excess ABG Hemoglobin ABG Oxyhemoglobin ABG Sodium ABG Potassium ABG Chloride ABG Glucose Oxyhemoglobin Carboxyhemoglobin Sodium Potassium Chloride Carbon Dioxide BUN 75 H Creatinine 3.8 H Glucose 183 H POC Glucose 163 H 169 H Hemoglobin A1c Calcium Phosphorus 6.80 H Magnesium AST ALT Alkaline Phosphatase Lactate Dehydrogenase C-Reactive Protein Total Protein Albumin Triglycerides Arterial Blood Glucose Arterial Blood Ionized Calcium Urine WBC (Auto) U Epithel Cells (Auto) Urine Creatinine Random Vancomycin Coronavirus (PCR) Crossmatch Chest x-ray: pending Allied health notes reviewed: nursing
[2021-04-13] MEDS ORDERED: SODIUM CHLORIDE 0.9% 1000 ML 1,000 ML ONE ×2 (14:27→17:55)
--- NOTE | 2021-04-13 14:38 | Cat Scan Report ---
CT head/brain wo con INDICATION / CLINICAL INFORMATION: 31 years Female; ams. TECHNIQUE: Routine CT head without contrast. All CT scans at this location are performed using CT dos e reduction for ALARA by means of automated exposure control. COMPARISON: 11/03/2013 FINDINGS: BRAIN / INTRACRANIAL CONTENTS: No acute hemorrhage, mass effect, midline shift, hydrocephalus, or acu te, large territorial infarct. No signs of significant atrophy or chronic infarct. No significant whi te matter abnormality seen. CRANIOCERVICAL JUNCTION: No significant abnormality. ORBITS: No significant abnormality of visualized orbits. SINUSES / MASTOIDS: Patient is intubated. NG tube noted. Significant sinus and mastoid opacification seen. ADDITIONAL FINDINGS: Subcutaneous soft tissue swelling seen in the right parietal temporal region. No signs of underlying calvarial fracture appreciated. IMPRESSION: 1. No focal mass, intracranial hemorrhage, hydrocephalus, or acute, large territorial infarct. Signer Name: Morro Romero MD, III Signed: 04/13/2021 2:33 PM Workstation Name: [id number]
--- NOTE | 2021-04-13 14:49 | Progress Note ---
Assessment and Plan Cultures: SARS CoV2 PCR: Positive 03/13/2021 blood culture: No growth Resp cultures 03/14/2021: MSSA 03/23/2021 blood culture: No growth 03/23/2021 sputum culture: Usual respiratory maury 03/29/2021 blood culture: no growth 04/06/2021 blood culture: In process 04/06/2021 endotracheal aspirate culture: E faecalis 04/06/2021 urine culture: No growth A/P: 31-year-old female with asthma, morbid obesity, Crohn's disease admitted with cough and shortness of breath: #Septic shock: s/p abx. Persistently febrile, on multiple pressors. Has previously completed Ancef followed by Cefepime, and now on Aztreonam, Vancomycin and levofloxacin. #Bilateral pneumonia: Secondary to COVID-19. Severe disease, then developed MSSA in the lungs. s/p Actemra 03/15/2021, completed steroids for COVID. D-dimer very high initially, which has shown improvement. #Acute hypoxic respiratory failure: on the vent. #Rash with eosinophilia: Question of drug reaction, remains off Cefepime. 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 #Acute renal failure: progressive. Nephrology following, on HD. #Acute asthma exacerbation #Morbid obesity Recs: -f/u new cultures: blood culture -Continue micafungin -Continue vancomycin goal trough 10-20 -Continue meropenem -Stop Levaquin -on steroids per ICU -consider CT chest, abdomen and pelvis when feasible -extremely poor prognosis Champ Ling MD [facility] O: [phone] F: [phone] Subjective Date of service: 04/13/21 Principal diagnosis: Ac hypoxemic resp failure; AE-Asthma; SAI; Crohn's; COVID- 19; Pneumonia Interval history: Remains persistently febrile, white count 13.1. Cultures remain negative so far. Remains on the vent. Imaging personally reviewed: Head CT: No focal change. Objective - Exam Narrative Exam: Physical exam deferred to reduce risk of transmission of COVID-19. Please refer to primary team's note. - Constitutional Vitals: Vital Signs Temp Pulse Resp BP Pulse Ox 100.8 F H 99 H 0 L 116/54 98 04/13/21 11:47 04/13/21 13:00 04/13/21 13:00 04/12/21 23:49 04/13/21 13:00 Temperature -Last 24 Hours Temperature 100.8 F Temperature 100.8 F Temperature 100.9 F Temperature 100.4 F Temperature 100.6 F Temperature 100.8 F Temperature 99.5 F Temperature 99.3 F - Labs CBC & Chem 7: 04/13/21 04:44 04/13/21 04:44 Labs: Abnormal lab results 04/11/21 04/12/21 04/13/21 Range/Units 13:39 17:19 00:24 WBC (4.5-11.0) K/mm3 RBC (3.65-5.03) M/mm3 Hgb (10.1-14.3) gm/dl Hct (30.3-42.9) % RDW (13.2-15.2) % Plt Count (140-440) K/mm3 PT (12.2-14.9) Sec. INR (0.87-1.13) ABG pH (7.350-7.450) pH Units ABG pO2 (80.0-90.0) mm Hg ABG Base Excess (-2.0-3.0) mmol/L ABG Hemoglobin (12.0-16.0) gm/dl Oxyhemoglobin (95.0-99.0) % BUN (7-17) mg/dL Creatinine (0.6-1.2) mg/dL Glucose (65-100) mg/dL POC Glucose 177 H 188 H (70-105) mg/dL Phosphorus (2.5-4.5) mg/dL Crossmatch See Detail 04/13/21 04/13/21 04/13/21 Range/Units 03:52 04:44 04:44 WBC 13.1 H (4.5-11.0) K/mm3 RBC 2.57 L (3.65-5.03) M/mm3 Hgb 7.3 L (10.1-14.3) gm/dl Hct 23.2 L (30.3-42.9) % RDW 17.6 H (13.2-15.2) % Plt Count 73 L (140-440) K/mm3 PT 16.0 H (12.2-14.9) Sec. INR 1.16 H (0.87-1.13) ABG pH 7.195 L* (7.350-7.450) pH Units ABG pO2 98.9 H (80.0-90.0) mm Hg ABG Base Excess -2.9 L (-2.0-3.0) mmol/L ABG Hemoglobin 7.4 L (12.0-16.0) gm/dl Oxyhemoglobin 94.3 L (95.0-99.0) % BUN (7-17) mg/dL Creatinine (0.6-1.2) mg/dL Glucose (65-100) mg/dL POC Glucose (70-105) mg/dL Phosphorus (2.5-4.5) mg/dL Crossmatch 04/13/21 04/13/21 04/13/21 Range/Units 04:44 05:26 11:32 WBC (4.5-11.0) K/mm3 RBC (3.65-5.03) M/mm3 Hgb (10.1-14.3) gm/dl Hct (30.3-42.9) % RDW (13.2-15.2) % Plt Count (140-440) K/mm3 PT (12.2-14.9) Sec. INR (0.87-1.13) ABG pH (7.350-7.450) pH Units ABG pO2 (80.0-90.0) mm Hg ABG Base Excess (-2.0-3.0) mmol/L ABG Hemoglobin (12.0-16.0) gm/dl Oxyhemoglobin (95.0-99.0) % BUN 75 H (7-17) mg/dL Creatinine 3.8 H (0.6-1.2) mg/dL Glucose 183 H (65-100) mg/dL POC Glucose 163 H 169 H (70-105) mg/dL Phosphorus 6.80 H (2.5-4.5) mg/dL Crossmatch
[2021-04-13] MEDS ORDERED: methylPREDNISolone Sod Suc 1,000 MG in SODIUM CHLORIDE 0.9% 250ML 250 ML IV ONE (16:00)
[2021-04-13] MEDS: diphenhydrAMINE 50 MG/ML VIAL IV SCH ×2 (16:10→17:16)
--- NOTE | 2021-04-13 17:09 | Progress Note ---
<SAMARACRISTY NancyEloisa - Last Filed: 04/13/21 17:03> Assessment and Plan Assessment and plan: This is a 31-year-old female with asthma, morbid obesity and Crohn's disease admitted for COVID-19 pneumonia and and acute renal failure Neuro: Sedated -Intubated and sedated with propofol, fentanyl, Versed -sedation to vent synchrony -Seroquel -As needed ECG for QTC monitoring -Daily SAT/SBT when appropriate -Maintain sleep-wake cycle -Avoid delirium CV: Tachycardia, s/p hypertension now with hypotension -ST on the monitor -Vasopressor support with levophed, vasopressin -Maintain MAP above 65 -Blood pressure monitoring via A-line Respiratory: Acute hypoxic respiratory failure, asthma exacerbation, COVID-19 pneumonia, ARDS, RUL PNA, bronchospasm (resolved) -DuoNeb, steroids -Patient was intubated on 03/14 for respiratory distress and inability to protect airway with her ETT exchange on 04/11 -Intubated with 7.50 ETT at 24 at the lip -A.m. vent settings: AC/PC FiO2 65%, inspiratory pressure 40, rate 30, PEEP 10 -See RT notes for titration -ABGs per CCM -VAP bundle -SPO2 monitoring -CCM/pulmonary consulted, appreciate recommendations -S/p BiPAP therapy -S/p Bronc on 04/11 which showed alveolar hemorrhage GI: transaminitis, h/o MO and Crohn's disease -Nutrition consulted, appreciate recommendations -Tube feeding: Nepro -Free water 100 mL every 4 hours -BR: [place] -PPI -24 hours +4250ml -HD removal of 1 L yesterday : Acute kidney injury likely secondary to ATN, hyperphosphatemia, hyp erkalemia, hyponatremia, hypochloremia, metabolic acidosis -Nephrology consulted, appreciate recommendations -Vas-Cath placed 03/15 -HD initiated 03/15 -Daily weights -Strict intake and output -Avoid nephrotoxic medications -Renally dose medications -Trend BMP -Intervene for electrolytes as needed -HD per nephrology -s/p Bicarb gtt ID: COVID-19 pneumonia, leukocytosis, Staph aureus in tracheal aspirate, Conjunctival hemorrhage, ?HUS vs drug reaction -Infectious disease consulted, appreciate recommendations -03/14 COVID-19 PCR (+), 04/10 COVID PCR (-) -1 g of methylprednisone for 3 days (03/31 through 04/02 with taper) -Restarted on stress dose steroids on 04/10 -s/p Actemra per ID -Per ID patient is on a candidate for remdesivir due to renal failure -Patient received 1 dose of remdesivir on 03/14 -Prophylactic anticoagulation based on D-dimer -s/p Cipro/Dex drops for 5 days -Abx per ID: Levaquin, Merrem, micafungin -Trend COVID-19 inflammatory markers -Isolation/droplet precautions for 21 days -Vitamin C/vitamin D/zinc -follow culture data -Monitor WBC and fever curve -s/p plasmapheresis x2 (04/01-04/02) -LDH 509, Eliezer fibrinogen 491 -s/p Artic sun for temp regulation -given 1g solumedoral x1 for possible anaphylaxis reaction post contrast -benadryl q6 Heme: Leukocytosis, elevated D-dimer -Trend CBC -Transfuse hemoglobin less than 7 -Eliquis restarted 03/29 -SCDs to bilateral lower extremity while in bed -BLE duplex US shows no DVT -HIT negative Endo: Hyperglycemia -Hemoglobin A1c 6.3 -SSI -Accu-Cheks every 6 -Avoid hypoglycemia The high probability of a clinically significant, sudden or life threatening deterioration of the [multiple] system(s) required my full and direct attention, intervention and personal management. The aggregate critical care time was [60] minutes. This time is in addition to time spent performing reported procedures but includes the following: [x] Data Review and interpretation [x] Patient assessment and monitoring of vital signs [x] Documentation [x] Medication orders and management Disposition Plan: icu Total Time Spent with Patient (Minutes): 60 History Interval history: This is a 31-year-old female with asthma, history of prior intubation x1 in 02/2019, morbid obesity and Crohn's disease who presented to the emergency department on 03/13 with complaints of severe wheezing and shortness of breath over the past 4 days which is not relieved by home nebulizer treatments or rescue inhalers, cough without fever and no loss of sense of taste or smell. Patient is currently on vaccinated for COVID-19. In the emergency department patient was placed on BiPAP given steroids magnesium Solu-Medrol with improvement, CXR shows a streak of possible pneumonia. Patient was made a COVID-19 PUI and admitted to the hospital service. Patient was initially admitted to IMCU on BiPAP and was subsequently intubated due to severe respiratory distress and inability to protect her airway. Patient was admitted with acute hypoxic respiratory failure, acute asthma exacerbation, right upper lobe pneumonia, and as a COVID-19 PUI. Hospital Course to Date: 03/14/21- Patient is s/p intubation from this morning, sedated on propofol and fentanyl RASS -3 to -4. ETT above the clavicles advanced by 2cc. Continue nebs and IV steroids per [facility]. COVID swab pending. Hyperkalemia improved, X1 dose of kayaxalate ordered. Low BP and low urine output this am, fluid bolus challenge, 500cc of NS bolus given. Continue to monitor electrolytes and renal function, repeat BMP this afternoon. 03/15: Patient's renal function noted to be significantly worse today, patient was hyperkalemic and this was medically treated. Patient initiated on hemodialysis today. infectious disease was consulted today. 03/16: No acute events reported overnight, patient received hemodialysis yesterday. Patient is currently on propofol and fentanyl. 03/17: Patient received hemodialysis today, patient is slightly acidotic on ABG however [facility] is allowing for permissive hypercapnia, tracheal aspirate with Staph aureus and ID is aware. 03/18: Patient is having high residuals today and Reglan was started, patient will receive HD daily per nephrology, correct her change in FiO2 as tolerated. 03/19: HD per nephrology today, antibiotics changed to cefazolin. Patient did not tolerate tube feedings as she had high residuals this morning and they were turned off. Not restarted yet. Updated family at bedside today 03/20: HD today, ddimer noted to be >1000, Tolerating trickle TF. Stat BLE dopplar US 03/21: Patient is not tolerating TF, CXR shows worsening infiltrates, [facility] made changes to vent, TF on hold and started on IVF. 03/22/21- Patient remains intubated and on sedation. Persistent vomiting, TF held overnight, no documented BM, on reglan BR added, Shaun citarte & supp. HD today. Plan to restart TF at 10ml/hr, will reevaluate in the am. Persistent thrombocytopenia, Hep on hold, HIT panel ordered, PO eliquis initiated. 03/23/21- Patient remains on the vent and sedated on propofol and fentanyl RASS - 2 to -3. Possible SAT today as tolerated. Patient tolerated trickle feeds overnight, plan to advance TF by 10cc Q8 to 12hrs. Continue current BR and continue reglan for now. Slightr worsening in acidosis from this am, d/w [facility] vent setting adjusted, will repeat ABG at 9pm. 03/24/21- Patient is on the vent and sedated, on fentanyl and propfol. Bilateral subconjunctival hemorrhage with periorbital edema noted this am, pupils are round and reactive, will Cipro/Dex [id number]. Worsening of kidney function from today's labs, plan for HD per Nephro. 03/25/21- Patient remains intubated and on sedatin, RASS 0 to -1, no longer on pressors. Sudden drop in H&H this am, bilateral subconjunctival hemorrhage with no sig change, no signs of any active bleeding. Patient appears neurologically intact, following commands, pupils are round and reactive with + gag and cough, moved all extremities. D/w [facility] patient is too unstable for CT at this time. Eliquis D/Devaughn, 1unit of PRBC ordered. Will continue to trend CBC. Plan for another section of HD today 03/26/21- Patient remains on the vent and sedated. VENICE reported from overnight. Plan for HD again today. H&H back up and stable, no AC at this time, SCDs for VTE phro. D/w [facility] patient is still too unstable for CT scan, will continue neuro exam and will continue to monitor H&H. 03/27/21- VENICE overnight. remains on the vent and sedated. Red localized rashes noted in patient upper chest and face, will r/o allergic reaction,CBC with auto diff and urine eosinophils ordered. Plan for HD today per Nephro. 03/28/21- Patient remains on the vent and sedated. Persistent fevers overnight unrelieved with antipyretic, currently on a cooling blanket. Back on pressors for hypotension, patient already on IV abx, last blood cultureX2 and sputum culture from 03/23 were negative. Continue IV abx, will reculture patient, orders placed for B.culture and sputum culture. ID is also on consult. will continue F/u on culture and continue to monitor BMP and CBC. 03/29: Patient restarted on prednisone given splotchy rash, will resume apixaban for VTE prophylaxis and repeat ABG at 9 PM. Remains with leukocytosis, elevated BUN/creatinine, elevated triglycerides and on Levophed 03/30: HD today, rash is still present and started on IV steroids. plt is low today but will continue to monitor. CCM made changes to vent-> decrease in MV. ABG in the pm and possible punch biopsy tomorrow if rash is not improved. propofol changed to versed 03/31: Heme/oncology consulted yesterday, will start patient on plasmapheresis for possible HUS. Cefepime discontinued today as today was the last day. Patient started on pulse dose steroids of 1 g/day for 3 days. Some improvement noted to eyes this morning. Patient was febrile overnight and received ibuprofen overnight. Acetaminophen allergy confirmed with family, allergy is only to oxycodone and hydrocodone but not the acetaminophen component. Confirmed by family patient has no reaction to inam-mem-aupodyv Tylenol. Remains on vasopressor support and sedated with fentanyl, propofol and Versed. Vent mode changed to pressure control ventilation. Patient started on Arctic s un for fever control. Mother updated over telephone this a.m. and this p.m. family meeting held with her mother, sister x 2 and brother and with 2 other unknown people over the phone (1 female and one male) and nurse. Family states that patient is likely to an antibiotic possibly penicillins. This information was not available to us before. 04/01: Hyperkalemia medically treated, patient scheduled for dialysis today, plasmapheresis for possible HUS scheduled for today, steroids should be ending tomorrow, generalized rash/discoloration minimally better. Patient still remains on Arctic sun for temperature regulation. Vent changes per [facility]. 04/02: plasma exchange, tessa on sedatives and vasopressor support, HD for ultrafiltration 04/03: remains on artic sun but water temp noted to be in the 30s today. Completed plasmapheresis x2 and is now on steroid taper however minimal change noted to rash/discoloration. Eyes are more clear today but remain red under lids (tops of eye). Acidosis noted on ABG. Hyperkalemia and hyperphosphatemeia persists. Sedation increased for RR in to the 40s-50s and vasopressors being titrated as tolerated. 04/04: Patient receiving 1 unit PRBC per heme's recommendation, increased respiratory effort noted, patient is acidotic on ABG and given 1 amp of bicarb in addition to bicarb drip, sedation increased for vent synchrony. No HD per nephrology given tachycardia. Seroquel started. 04/05: Patient on the vent and sedated, still on 3 pressors. Patient to wean off propofol gtt, seroquel increased. Patient afebrile overnight, however artic sun is still in place. Will attempt to take off the cooling blanket today, will continue to assess for fever curve. Continue current IV Abx therapy per ID. Plan for HD today per Nephro. Patient's family at the bedside, thoroughly discussed patient's condition and overall poor prognosis. All questions and concerns were addressed. Team will continue to f/u with family with further updates. 04/06: Patient remains sedated and on the vent, still on fent and versed, propofol was weaned off. Low Hbg this am, 2 units of PRBCs ordered. Patient febrile overnight, patient completed IV abx course, leukocytosis downtrending. c/f for possible drug fever vs DVT, BLE doppler reordered to R/O DVT. Patient remains on high dose pressors, wean pressors as tolerated for MAP of 65. 04/07: Patient appears to be in distress thi am, tachypneic and tachycardic, with increased work of breathing. Propofol stopped this am. IV push versed given and versed gtt was increased to max. D/w CCM plan to possibly restart propofol since patient is not tolerating sedation wean. Patient remains febrile throughout, pancultured yesterday by ID and IV abx was restarted. Overall poor prognosis at this time. Patient's mother and siblings at the bedside were update on patient's status. Plan for possible family meeting with the care team Monday. 04/08: Patient with worsening CXR this am, increased of vent setting overnight, respiratory acidosis from this am ABG. Patient remains febrile, IV ABx switched to Merrem for VAP coverage, ID is following. Patient remains on sedation and on pressors. Low hemoglobin this am, 1unit of PRBCs ordered. Hyperkalemia noted, per Nephro it is stable no intervention at this time plan for HD tomorrow. Spoke with patient's mom, meeting postponed for possibly next week, case management to arrange. Hospitalist also called and updated patient's mother. Team will continue to follow up. 04/09: Patient condition remains unchanged, on the vent, on sedation, and on 2 pressors. Still febrile, on IV Abx, X1 set of fungal blood culture ordered. D/w ID recommended to start micafungin 100mg Qday. Hyperkalemic this am, plan for HD today. 04/10: VENICE overnight. Patient remains on the vent and sedated. Afebrile overnight, stress steroids added, pressors requirement is going down. HD overnight 3L out, plan for HD again today. Continue IV Abx and antifungal, F/u on culture data. 04/11: Patient remains on the vent and sedated, on minimal pressors this am. Tachycardic HR in the 130-140s this am. Per RN 4L out in HD yesterday, X1 dose of 25% Albumin given. Bloody drainage with clots also noted from patient nose, mouth, and ETT, Hbg 7 this am. Will hold AC for now, serial H&H ordered, transfuse if Hbg less than 7. 04/12: Patient was able to get HD today, Levaquin was stopped by ID. Consider CT chest/abdomen/pelvis when feasible per ID. Patient remains tachycardic. Was febrile most of the day however temperature decreased with icing and tylenol. 04/13: Patient had a CT chest, abdomen/pelvis with oral contrast and CT head today. Patient received 1 unit PRBC today given downtrending of H/H with continual bloody drainage from mouth/nose. Patient will receive hemodialysis today. Patient started on Benadryl every 6, received 1 g of Solu-Medrol x1 for apparent angioedema post CT with contrast. Hospitalist Physical - Constitutional Vitals: Temp Pulse Resp BP Pulse Ox 99.5 F 121 H 22 116/54 99 04/13/21 16:00 04/13/21 16:16 04/13/21 16:16 04/12/21 23:49 04/13/21 16:16 General appearance: Present: no acute distress, well-nourished, obese, other (Intubated and sedated) - EENT Eyes: Present: PERRL, EOM intact ENT: dentition normal - Neck Neck: Present: normal ROM - Respiratory Respiratory effort: normal Respiratory: bilateral: diminished - Cardiovascular Rhythm: regular Heart Sounds: Present: S1 & S2. Absent: systolic murmur, diastolic murmur - Extremities Extremities: no ischemia, pulses intact, pulses symmetrical, normal temperature, normal color Peripheral Pulses: within normal limits - Abdominal General gastrointestinal: soft, non-tender, non-distended, normal bowel sounds - Integumentary Integumentary: Present: warm, dry - Allied Health Allied health notes reviewed: nursing, RT, social work Results - Labs CBC & Chem 7: 04/13/21 04:44 04/13/21 04:44 Labs: Laboratory Last Values WBC 13.1 K/mm3 (4.5-11.0) H 04/13/21 04:44 RBC 2.57 M/mm3 (3.65-5.03) L 04/13/21 04:44 Hgb 7.3 gm/dl (10.1-14.3) L 04/13/21 04:44 Hct 23.2 % (30.3-42.9) L 04/13/21 04:44 MCV 90 fl (79-97) 04/13/21 04:44 MCH 28 pg (28-32) 04/13/21 04:44 MCHC 31 % (30-34) 04/13/21 04:44 RDW 17.6 % (13.2-15.2) H 04/13/21 04:44 Plt Count 73 K/mm3 (140-440) L 04/13/21 04:44 Lymph % (Auto) 10.7 % (13.4-35.0) L 03/28/21 09:37 Billings % (Auto) 5.2 % (0.0-7.3) 03/28/21 09:37 Eos % (Auto) Hat [employer] Inspector 04/07/21 03:50 Baso % (Auto) 0.2 % (0.0-1.8) 03/28/21 09:37 Lymph # (Auto) 1.7 K/mm3 (1.2-5.4) 03/28/21 09:37 Billings # (Auto) 0.9 K/mm3 (0.0-0.8) H 03/28/21 09:37 Eos # (Auto) 0.6 K/mm3 (0.0-0.4) H 03/28/21 09:37 Baso # (Auto) 0.0 K/mm3 (0.0-0.1) 03/28/21 09:37 Add Manual Diff Complete 04/07/21 03:50 Total Counted 100 04/07/21 03:50 Seg Neutrophils % 80.0 % (40.0-70.0) H 03/28/21 09:37 Seg Neuts % (Manual) 67.0 % (40.0-70.0) 04/07/21 03:50 Lymphocytes % (Manual) 10.0 % (13.4-35.0) L 04/07/21 03:50 Monocytes % (Manual) 4.0 % (0.0-7.3) 04/07/21 03:50 Eosinophils % (Manual) 19.0 % (0.0-4.3) H 04/07/21 03:50 Basophils % (Manual) 2.0 % (0.0-1.8) H 04/03/21 04:30 Nucleated RBC % 2.0 % (0.0-0.9) H 04/07/21 03:50 Seg Neutrophils # 13.0 K/mm3 (1.8-7.7) H 03/28/21 09:37 Seg Neutrophils # Man 17.9 K/mm3 (1.8-7.7) H 04/07/21 03:50 Band Neutrophils # 0.0 K/mm3 04/07/21 03:50 Lymphocytes # (Manual) 2.7 K/mm3 (1.2-5.4) 04/07/21 03:50 Abs React Lymphs (Man) 0.0 K/mm3 04/07/21 03:50 Monocytes # (Manual) 1.1 K/mm3 (0.0-0.8) H 04/07/21 03:50 Eosinophils # (Manual) 5.1 K/mm3 (0.0-0.4) H 04/07/21 03:50 Basophils # (Manual) 0.0 K/mm3 (0.0-0.1) 04/07/21 03:50 Metamyelocytes # 0.0 K/mm3 04/07/21 03:50 Myelocytes # 0.0 K/mm3 04/07/21 03:50 Promyelocytes # 0.0 K/mm3 04/07/21 03:50 Blast Cells # 0.0 K/mm3 04/07/21 03:50 WBC Morphology Not Reportable 04/07/21 03:50 Hypersegmented Neuts Not Reportable 04/07/21 03:50 Hyposegmented Neuts Not Reportable 04/07/21 03:50 Hypogranular Neuts Not Reportable 04/07/21 03:50 Smudge Cells Not Reportable 04/07/21 03:50 Toxic Granulation Not Reportable 04/07/21 03:50 Toxic Vacuolation Not Reportable 04/07/21 03:50 Dohle Bodies Not Reportable 04/07/21 03:50 Pelger-Huet Anomaly Not Reportable 04/07/21 03:50 Bridgette Rods Not Reportable 04/07/21 03:50 Platelet Estimate Consistent w auto 04/07/21 03:50 Clumped Platelets Not Reportable 04/07/21 03:50 Plt Clumps, EDTA Not Reportable 04/07/21 03:50 Large Platelets Not Reportable 04/07/21 03:50 Giant Platelets Not Reportable 04/07/21 03:50 Platelet Satelliting Not Reportable 04/07/21 03:50 Plt Morphology Comment Not Reportable 04/07/21 03:50 RBC Morphology Not Reportable 04/07/21 03:50 Dimorphic RBCs Not Reportable 04/07/21 03:50 Polychromasia Not Reportable 04/07/21 03:50 Hypochromasia Not Reportable 04/07/21 03:50 Poikilocytosis Not Reportable 04/07/21 03:50 Anisocytosis 1+ 04/07/21 03:50 Microcytosis Not Reportable 04/07/21 03:50 Macrocytosis Not Reportable 04/07/21 03:50 Spherocytes Not Reportable 04/07/21 03:50 Pappenheimer Bodies Not Reportable 04/07/21 03:50 Sickle Cells Not Reportable 04/07/21 03:50 Target Cells 1+ 04/07/21 03:50 Tear Drop Cells Not Reportable 04/07/21 03:50 Ovalocytes Not Reportable 04/07/21 03:50 Helmet Cells Not Reportable 04/07/21 03:50 Kebede-Enoch Bodies Not Reportable 04/07/21 03:50 Vista Rings Not Reportable 04/07/21 03:50 Addis Cells Not Reportable 04/07/21 03:50 Bite Cells Not Reportable 04/07/21 03:50 Crenated Cell Not Reportable 04/07/21 03:50 Elliptocytes Not Reportable 04/07/21 03:50 Acanthocytes (Spur) Not Reportable 04/07/21 03:50 Rouleaux Not Reportable 04/07/21 03:50 Hemoglobin C Crystals Not Reportable 04/07/21 03:50 Schistocytes Not Reportable 04/07/21 03:50 Malaria parasites Not Reportable 04/07/21 03:50 Percent Retic 4.52 % (0.78-2.58) H 03/31/21 09:49 Vaibhav Bodies Not Reportable 04/07/21 03:50 Hem Pathologist Commnt No 04/07/21 03:50 PT 16.0 Sec. (12.2-14.9) H 04/13/21 04:44 INR 1.16 (0.87-1.13) H 04/13/21 04:44 APTT 28.9 Sec. (24.2-36.6) 04/04/21 07:55 Fibrinogen 362 mg/dl (211-480) 04/13/21 16:00 D-Dimer 2696.79 ng/mlDDU (0-234) H 04/08/21 04:40 Heparin Anti-Xa, Unfract TNR 03/22/21 08:20 ABG pH 7.195 pH Units (7.350-7.450) L* 04/13/21 03:52 POC ABG pCO2 63.4 mmHg (32.0-48.0) H 04/09/21 21:00 ABG pCO2 68.6 mm Hg 04/13/21 03:52 POC ABG pO2 83.0 mmHg (83-108) 04/09/21 21:00 ABG pO2 98.9 mm Hg (80.0-90.0) H 04/13/21 03:52 POC ABG HCO3 23.8 04/09/21 21:00 ABG HCO3 25.5 mmol/L (20.0-26.0) 04/13/21 03:52 ABG O2 Saturation 96.6 % (95.0-99.0) 04/13/21 03:52 ABG O2 Content 10.0 (0.0-44) 04/13/21 03:52 POC ABG Base Excess -4.6 04/09/21 21:00 ABG Base Excess -2.9 mmol/L (-2.0-3.0) L 04/13/21 03:52 ABG Hemoglobin 7.4 gm/dl (12.0-16.0) L 04/13/21 03:52 ABG Oxyhemoglobin 92.9 (94-98) L 04/09/21 21:00 ABG Carboxyhemoglobin 1.9 % (0.0-5.0) 04/13/21 03:52 ABG Methemoglobin 0.5 % (0.0-1.5) 04/13/21 03:52 ABG Sodium 135.1 mmol/L (136.0-145.0) L 04/09/21 21:00 ABG Potassium 4.2 mmol/L (3.40-4.50) 04/09/21 21:00 ABG Chloride 102.0 mmol/L (98-107) 04/09/21 21:00 ABG Glucose 208 mg/dL (65-95) H 04/09/21 21:00 ABG Lactate Cancelled 04/03/21 20:45 Oxyhemoglobin 94.3 % (95.0-99.0) L 04/13/21 03:52 Carboxyhemoglobin 0.9 (0.5-1.5) 04/09/21 21:00 FiO2 65 % 04/13/21 03:52 FiO2 % 60.0 04/09/21 21:00 Sodium 143 mmol/L (137-145) 04/13/21 04:44 Potassium 5.0 mmol/L (3.6-5.0) 04/13/21 04:44 Chloride 104.3 mmol/L (98-107) 04/13/21 04:44 Carbon Dioxide 23 mmol/L (22-30) 04/13/21 04:44 Anion Gap 21 mmol/L 04/13/21 04:44 BUN 75 mg/dL (7-17) H 04/13/21 04:44 Creatinine 3.8 mg/dL (0.6-1.2) H 04/13/21 04:44 Estimated GFR 17 ml/min 04/13/21 04:44 BUN/Creatinine Ratio 20 % 04/13/21 04:44 Glucose 183 mg/dL (65-100) H 04/13/21 04:44 POC Glucose 169 mg/dL (70-105) H 04/13/21 11:32 Hemoglobin A1c 6.3 % (4-6) H 03/15/21 05:09 Lactic Acid 0.80 mmol/L (0.7-2.0) 04/07/21 03:50 Calcium 8.6 mg/dL (8.4-10.2) 04/13/21 04:44 Phosphorus 6.80 mg/dL (2.5-4.5) H 04/13/21 04:44 Magnesium 2.10 mg/dL (1.7-2.3) 04/13/21 04:44 Ferritin 151.6 ng/mL (10.0-200.0) 03/18/21 04:30 Total Bilirubin 0.80 mg/dL (0.1-1.2) 04/07/21 04:00 Bilirubin Cancelled 04/03/21 20:45 AST 38 units/L (5-40) 04/07/21 04:00 ALT 38 units/L (7-56) 04/07/21 04:00 Alkaline Phosphatase 167 units/L (35-129) H 04/07/21 04:00 Lactate Dehydrogenase 394 units/L (91-180) H 04/05/21 05:20 C-Reactive Protein 26.10 mg/dL (0.00-1.30) H 04/08/21 04:00 Total Protein 6.6 g/dL (6.3-8.2) 04/07/21 04:00 Albumin 2.8 g/dL (3.9-5) L 04/07/21 04:00 Albumin/Globulin Ratio 0.7 % 04/07/21 04:00 Triglycerides 406 mg/dL (2-149) H 04/11/21 04:15 Serotonin Release Assay TNR 03/22/21 08:20 Procalcitonin < 0.05 ng/mL (<0.15) 03/13/21 15:40 HCG, Qual Negative (Negative) 03/13/21 13:26 Arterial Blood Glucose 208 mg/dL (65-95) H 04/09/21 21:00 Arterial Blood Ionized Calcium 4.3 mg/dL (4.6-5.3) L 04/08/21 20:53 Urine Color Sweta (Yellow) 04/06/21 Unknown Urine Turbidity Cloudy (Clear) 04/06/21 Unknown Urine pH 5.0 (5.0-7.0) 04/06/21 Unknown Ur Specific Douglas 1.020 (1.003-1.030) 04/06/21 Unknown Urine Protein 100 mg/dl mg/dL (Negative) 04/06/21 Unknown Urine Glucose (UA) Neg mg/dL (Negative) 04/06/21 Unknown Urine Ketones Neg mg/dL (Negative) 04/06/21 Unknown Urine Blood Mod (Negative) 04/06/21 Unknown Urine Nitrite Neg (Negative) 04/06/21 Unknown Urine Bilirubin Neg (Negative) 04/06/21 Unknown Urine Urobilinogen < 2.0 mg/dL (<2.0) 04/06/21 Unknown Ur Leukocyte Esterase Neg (Negative) 04/06/21 Unknown Urine WBC (Auto) 148.0 /HPF (0.0-6.0) H 04/06/21 Unknown Urine RBC (Auto) > 182.0 /HPF (0.0-6.0) 04/06/21 Unknown U Epithel Cells (Auto) 102.0 /HPF (0-13.0) H 04/06/21 Unknown Urine Bacteria (Auto) 1+ /HPF (Negative) 04/06/21 Unknown Ur Renal Epithelial Cell 151 /LPF 04/06/21 Unknown Urine Mucus Few /HPF 04/06/21 Unknown Urine Yeast (Budding) 3+ /HPF 04/06/21 Unknown Urine Creatinine 40.1 mg/dL (0.1-20.0) H 03/14/21 17:50 Urine Sodium 124 mmol/L 03/14/21 17:50 Random Vancomycin 13.6 ug/mL (0-40.0) 04/12/21 04:30 KIMBERLEY Screen Negative (Negative) 04/07/21 08:27 Heparin-induced Plt Ab Negative (Negative) 03/22/21 08:20 UF Heparin High Dose TNR 03/22/21 08:20 JUAN UFH Low Dose 0.1 TNR 03/22/21 08:20 JUAN UFH Low Dose 0.5 TNR 03/22/21 08:20 Coronavirus (PCR) Negative (Negative) 04/04/21 09:00 Hepatitis A IgM Ab Non-reactive (NonReactive) 03/15/21 05:09 Hep Bs Antigen Nonreactive (Negative) 03/15/21 05:09 Hep B Core IgM Ab Non-reactive (NonReactive) 03/15/21 05:09 Hepatitis C Antibody Non-reactive (NonReactive) 03/15/21 05:09 Schistocytes Smear None seen 03/31/21 12:11 Blood Type O POSITIVE 04/11/21 13:39 Antibody Screen Negative 04/11/21 13:39 Direct Antiglob Test Negative 03/31/21 23:18 NIKOLE, Poly Interpret Negative 03/31/21 23:18 Crossmatch See Detail 04/11/21 13:39 Microbiology: Microbiology 04/11/21 15:05 Bronchial Washings - Left Upper Lobe Respiratory Culture - Preliminary Bazan/IV: Voiding Method Toilet Active Medications - Current Medications Current Medications: Generic Name Dose Route Start Last Admin Trade Name Freq PRN Reason Stop Dose Admin Acetaminophen 650 mg 03/31/21 12:41 04/13/21 07:55 Acetaminophen 325 Mg/10.15 Ml Oral Liqd Unit Dose FEEDTUBE 650 mg Q6H PRN Administration TEMP >/=100.4 Albumin Human 25 gm 04/01/21 08:19 04/01/21 16:23 Albumin Human 25% (25 Gm/100 Ml) Inj IV 25 gm KARLOS PRN Administration Hypotension Albuterol 2.5 mg 03/19/21 00:53 Albuterol 2.5 Mg/3 Ml Nebu IH Q4HRT PRN Shortness Of Breath Albuterol/Ipratropium 1 ampul 03/19/21 08:00 04/13/21 09:33 Ipratropium/Albuterol Sulfate 3 Ml Ampul.Neb IH 1 ampul Q6HRT INESSA Administration Lipase/Protease/Amylase 1 each 04/09/21 17:17 Lipase 10,500/Protease 25,000/Amylase 43,750 (Units) Dr White FEEDTUBE PRN PRN For Clogged Feeding Tube Ascorbic Acid 500 mg 03/14/21 22:00 04/13/21 09:43 Ascorbic Acid 500 Mg Tab PO 500 mg BID INESSA Administration Calcium Acetate 1,334 mg 04/03/21 20:00 04/13/21 13:24 Calcium Acetate 667 Mg Cap FEEDTUBE Not Given TID INESSA Dextrose 50 ml 03/14/21 11:02 03/15/21 11:40 Dextrose 50% In Water (25gm) 50 Ml Syringe IV 50 ml Q30MIN PRN Administration Hypoglycemia Protocol Diphenhydramine HCl 50 mg 04/13/21 18:00 04/13/21 16:10 Diphenhydramine 50 Mg/Ml Vial IV 04/14/21 18:01 50 mg Q6HR INESSA Administration Famotidine 10 mg 03/17/21 22:00 04/13/21 09:42 Famotidine 10 Mg Tab PO 10 mg BID INESSA Administration Fentanyl 50 mcg 03/15/21 10:43 04/05/21 21:32 Fentanyl 100 Mcg/2 Ml Inj IV 50 mcg Q10MIN PRN Administration ANALGESIA Hydrocortisone Sodium Succinate 100 mg 04/10/21 00:00 04/13/21 16:09 Hydrocortisone Sod Succ 100 Mg/2 Ml Vial IV 100 mg Q8H INESSA Administration Hydrophilic Ointment 1 applic 03/14/21 17:50 Lip Therapy Vaseline TP Q2HR PRN Dry Lips Fentanyl Citrate 2,000 mcg in 100 mls @ 6.872 mls/hr 03/15/21 11:00 04/13/21 15:19 Fentanyl Drip Premix IV 4 mcg/kg/hr TITR INESSA 27.488 mls/hr Administration Protocol 1 MCG/KG/HR Sodium Chloride 500 mls @ 1 mls/hr 03/16/21 17:19 Nacl 0.9% 500 Ml IV DIRECT PRN ARTERIAL LINE FLUSH Midazolam HCl 100 mg/ Sodium 100 mls @ 1 mls/hr 03/30/21 15:00 04/13/21 16:45 Chloride IV 5 mg/hr TITR INESSA 5 mls/hr Titration Protocol 1 MG/HR Vasopressin 20 unit/ Sodium 101 mls @ 9.09 mls/hr 03/30/21 20:00 04/13/21 07:58 Chloride IV 0.03 units/min TITR INESSA 9.09 mls/hr Administration 0.03 UNITS/MIN Phenylephrine HCl 100 mg/ 100 mls @ 3 mls/hr 03/31/21 04:00 04/06/21 07:58 Sodium Chloride IV 0 mcg/min TITR INESSA 0 mls/hr Titration Protocol 50 MCG/MIN Sodium Chloride 100 mls @ 999 mls/hr 04/01/21 08:19 Nacl 0.9% IV KARLOS PRN Hypotension Propofol 1,000 mg in 100 mls @ 4.26 mls/hr 04/07/21 13:00 04/12/21 12:52 Diprivan 10 Mg/Ml IV 0 mcg/kg/min TITR INESSA 0 mls/hr Titration Protocol 5 MCG/KG/MIN Micafungin Sodium 100 mg/ 100 mls @ 100 mls/hr 04/09/21 17:00 04/12/21 17:31 Sodium Chloride IV 100 mls/hr Q24H INESSA Administration Protocol Norepinephrine 8 mg/ Sodium 8 mg in 258 mls @ 3.87 mls/hr 04/12/21 04:00 04/13/21 16:45 Chloride IV 4 mcg/min TITRATE INESSA 7.74 mls/hr Titration Protocol 2 MCG/MIN MEROPENEM/NS 1 GRAM/100 ML 1 gram in 100 mls @ 100 mls/hr 04/12/21 22:00 04/12/21 22:03 Merrem/Ns 1 Gram/100 Ml IV 100 mls/hr Q24H INESSA Administration Protocol Sodium Chloride 500 mls @ 0 mls/hr 04/13/21 11:30 Nacl 0.9% 500 Ml IV 04/13/21 20:00 ONCE NR As Directed Insulin Human Lispro 0 unit 03/14/21 12:00 04/13/21 11:38 Insulin Lispro 100 Unit/Ml SUB-Q 3 unit Q6HR INESSA Administration Protocol Lorazepam 1 mg 03/13/21 19:40 03/30/21 19:58 Lorazepam 2 Mg/Ml Vial IV 1 mg Q4H PRN Administration Anxiety Multi-Ingred Cream/Lotion/Oil/Oint 1 applic 03/14/21 17:50 04/10/21 22:03 Mineral Oil/Petrolatum, White Ophth Oint 3.5 Gm OU 1 applic Q4HR PRN Administration Dry Eye(s) Ondansetron HCl 4 mg 03/13/21 19:30 03/21/21 12:05 Ondansetron 4 Mg/2 Ml Inj IV 4 mg Q8H PRN Administration Nausea And Vomiting Quetiapine Fumarate 300 mg 04/06/21 22:00 04/13/21 09:43 Quetiapine 100 Mg Tab PO 300 mg BID INESSA Administration Senna/Docusate Sodium 1 tab 03/14/21 22:00 04/13/21 09:42 Sennosides/Docusate Sodium 8.6/50 Mg Tab FEEDTUBE 1 tab BID INESSA Administration Simple Syrup 15 ml 04/09/21 17:17 Simple Syrup 15 Ml FEEDTUBE PRN PRN Hypoglycemia Simple Syrup 30 ml 04/09/21 17:17 Simple Syrup 15 Ml FEEDTUBE PRN PRN Hypoglycemia Sodium Bicarbonate 325 mg 04/09/21 17:17 Sodium Bicarbonate 325 Mg Tab FEEDTUBE PRN PRN For Clogged Feeding Tube Sodium Chloride 10 ml 03/13/21 22:00 04/13/21 09:42 Sodium Chloride 0.9% 10 Ml Flush Syringe IV 10 ml BID INESSA Administration Sodium Chloride 10 ml 03/13/21 19:30 Sodium Chloride 0.9% 10 Ml Flush Syringe IV PRN PRN LINE FLUSH Zinc Sulfate 220 mg 03/14/21 22:00 04/13/21 09:43 Zinc Sulfate 220 Mg Cap PO 220 mg BID INESSA Administration Nutrition/Malnutrition Assess - Dietary Evaluation Nutrition/Malnutrition Findings: Nutrition Notes Start: 03/15/21 11:06 Freq: Status: Active Protocol: Document 04/09/21 16:52 CANDACE (Rec: 04/09/21 17:24 CANDACE [id number]) Nutrition Notes Initial or Follow up Reassessment Current Diagnosis Acute Kidney Injury, Hypertension,Respiratory Failure Other Pertinent Diagnosis [id number], Transaminitis, Hyperglycemia, Current Diet TF -Nepro w/CARBSTEADY (since D 03/15). Labs/Tests 04/09: Na 131, K 6.3, Cl 93.0, CO2 19, BUN 98, Crea 4.6, Glu 208, Ca 8.1. Pertinent Medications 04/09: Nutritionally unremarkable. Height 5 ft 5 in Weight 142 kg [place] Body Weight (kg) 56.81 BMI 52.0 Weight change and time frame 4.56 Kg body weight gain during last 7 days reported. Weight Status Morbidly Obese Subjective/Other Information RD consult for routine F/U on TF tolerance. Burn Absent Trauma Absent GI Symptoms None Food Allergy No Skin Integrity/Comment Clear, warm, dry. Current % PO Other Minimum of two criteria No Is patient on ventilator? Yes Is Patient Ambulatory and/or Out of Bed No REE-([facility]-confined to bed) 2570.232 Kcal/Kg value to use for calculation 14 Approximate Energy Requirements Using 1988 kcal/Kg Calculation Used for Recommendations Kcal/kg Additional Notes Pro needs >1.2g/kg adjBW: > 117g/day Fluid needs 1-1.5L/day Nutrition Intervention Nutrition Support: Continue Nepro w/CARBSTEADY @ 46 ml/hr. Flush: 198 ml water Q 4h Kcal 1,988 Protein (gm) 90 Carbohydrates (gm) 178 Fat (gm) 106 Fluid (mL) 803 Fiber (gm) 14 % RDI: 100% Kcal; 76% AA. Goal #1 Maintain body weight within +/ -3% of admission BWt during LOS. Goal #2 Reach and maintain acceptable chemistry lab values during LOS. Follow-Up By: 04/23/21 Additional Comments Continue monitoring TF tolerance, Hydration, and BM. <SAURABH ALRBECHT - Last Filed: 04/15/21 07:19> Assessment and Plan Assessment and plan: I saw and evaluated the patient. Discussed with the nurse practitioner and agree with their findings and plan as documented in this note. Hospitalist Physical - Constitutional Vitals: Temp Pulse Resp BP Pulse Ox 102.0 F H 137 H 20 140/76 100 04/15/21 04:00 04/15/21 06:00 04/15/21 06:00 04/15/21 06:00 04/15/21 06:00 Results - Labs CBC & Chem 7: 04/15/21 Unknown 04/15/21 Unknown Labs: Laboratory Last Values WBC 11.8 K/mm3 (4.5-11.0) H 04/15/21 Unknown RBC 2.41 M/mm3 (3.65-5.03) L 04/15/21 Unknown Hgb 7.1 gm/dl (10.1-14.3) L 04/15/21 Unknown Hct 22.4 % (30.3-42.9) L 04/15/21 Unknown MCV 93 fl (79-97) 04/15/21 Unknown MCH 29 pg (28-32) 04/15/21 Unknown MCHC 32 % (30-34) 04/15/21 Unknown RDW 17.0 % (13.2-15.2) H 04/15/21 Unknown Plt Count 38 K/mm3 (140-440) L 04/15/21 Unknown Lymph % (Auto) 10.7 % (13.4-35.0) L 03/28/21 09:37 [place] % (Auto) 5.2 % (0.0-7.3) 03/28/21 09:37 Eos % (Auto) [employer] [place] Inspector 04/07/21 03:50 Baso % (Auto) 0.2 % (0.0-1.8) 03/28/21 09:37 Lymph # (Auto) 1.7 K/mm3 (1.2-5.4) 03/28/21 09:37 [place] # (Auto) 0.9 K/mm3 (0.0-0.8) H 03/28/21 09:37 Eos # (Auto) 0.6 K/mm3 (0.0-0.4) H 03/28/21 09:37 Baso # (Auto) 0.0 K/mm3 (0.0-0.1) 03/28/21 09:37 Add Manual Diff Complete 04/07/21 03:50 Total Counted 100 04/07/21 03:50 Seg Neutrophils % 80.0 % (40.0-70.0) H 03/28/21 09:37 Seg Neuts % (Manual) 67.0 % (40.0-70.0) 04/07/21 03:50 Lymphocytes % (Manual) 10.0 % (13.4-35.0) L 04/07/21 03:50 Monocytes % (Manual) 4.0 % (0.0-7.3) 04/07/21 03:50 Eosinophils % (Manual) 19.0 % (0.0-4.3) H 04/07/21 03:50 Basophils % (Manual) 2.0 % (0.0-1.8) H 04/03/21 04:30 Nucleated RBC % 2.0 % (0.0-0.9) H 04/07/21 03:50 Seg Neutrophils # 13.0 K/mm3 (1.8-7.7) H 03/28/21 09:37 Seg Neutrophils # Man 17.9 K/mm3 (1.8-7.7) H 04/07/21 03:50 Band Neutrophils # 0.0 K/mm3 04/07/21 03:50 Lymphocytes # (Manual) 2.7 K/mm3 (1.2-5.4) 04/07/21 03:50 Abs React Lymphs (Man) 0.0 K/mm3 04/07/21 03:50 Monocytes # (Manual) 1.1 K/mm3 (0.0-0.8) H 04/07/21 03:50 Eosinophils # (Manual) 5.1 K/mm3 (0.0-0.4) H 04/07/21 03:50 Basophils # (Manual) 0.0 K/mm3 (0.0-0.1) 04/07/21 03:50 Metamyelocytes # 0.0 K/mm3 04/07/21 03:50 Myelocytes # 0.0 K/mm3 04/07/21 03:50 Promyelocytes # 0.0 K/mm3 04/07/21 03:50 Blast Cells # 0.0 K/mm3 04/07/21 03:50 WBC Morphology Not Reportable 04/07/21 03:50 Hypersegmented Neuts Not Reportable 04/07/21 03:50 Hyposegmented Neuts Not Reportable 04/07/21 03:50 Hypogranular Neuts Not Reportable 04/07/21 03:50 Smudge Cells Not Reportable 04/07/21 03:50 Toxic Granulation Not Reportable 04/07/21 03:50 Toxic Vacuolation Not Reportable 04/07/21 03:50 Dohle Bodies Not Reportable 04/07/21 03:50 Pelger-Huet Anomaly Not Reportable 04/07/21 03:50 Bridgette Rods Not Reportable 04/07/21 03:50 Platelet Estimate Consistent w auto 04/07/21 03:50 Clumped Platelets Not Reportable 04/07/21 03:50 Plt Clumps, EDTA Not Reportable 04/07/21 03:50 Large Platelets Not Reportable 04/07/21 03:50 Giant Platelets Not Reportable 04/07/21 03:50 Platelet Satelliting Not Reportable 04/07/21 03:50 Plt Morphology Comment Not Reportable 04/07/21 03:50 RBC Morphology Not Reportable 04/07/21 03:50 Dimorphic RBCs Not Reportable 04/07/21 03:50 Polychromasia Not Reportable 04/07/21 03:50 Hypochromasia Not Reportable 04/07/21 03:50 Poikilocytosis Not Reportable 04/07/21 03:50 Anisocytosis 1+ 04/07/21 03:50 Microcytosis Not Reportable 04/07/21 03:50 Macrocytosis Not Reportable 04/07/21 03:50 Spherocytes Not Reportable 04/07/21 03:50 Pappenheimer Bodies Not Reportable 04/07/21 03:50 Sickle Cells Not Reportable 04/07/21 03:50 Target Cells 1+ 04/07/21 03:50 Tear Drop Cells Not Reportable 04/07/21 03:50 Ovalocytes Not Reportable 04/07/21 03:50 Helmet Cells Not Reportable 04/07/21 03:50 Kebede-Enoch Bodies Not Reportable 04/07/21 03:50 Vista Rings Not Reportable 04/07/21 03:50 Balaji Cells Not Reportable 04/07/21 03:50 Bite Cells Not Reportable 04/07/21 03:50 Crenated Cell Not Reportable 04/07/21 03:50 Elliptocytes Not Reportable 04/07/21 03:50 Acanthocytes (Spur) Not Reportable 04/07/21 03:50 Rouleaux Not Reportable 04/07/21 03:50 Hemoglobin C Crystals Not Reportable 04/07/21 03:50 Schistocytes Not Reportable 04/07/21 03:50 Malaria parasites Not Reportable 04/07/21 03:50 Percent Retic 4.52 % (0.78-2.58) H 03/31/21 09:49 Vaibhav Bodies Not Reportable 04/07/21 03:50 Hem Pathologist Commnt No 04/07/21 03:50 PT 16.3 Sec. (12.2-14.9) H 04/15/21 Unknown INR 1.18 (0.87-1.13) H 04/15/21 Unknown APTT 28.9 Sec. (24.2-36.6) 04/04/21 07:55 Fibrinogen 400 mg/dl (211-480) 04/14/21 09:45 D-Dimer 2696.79 ng/mlDDU (0-234) H 04/08/21 04:40 Heparin Anti-Xa, Unfract TNR 03/22/21 08:20 ABG pH 7.207 (7.320-7.450) L 04/14/21 21:00 POC ABG pCO2 67.6 mmHg (32.0-48.0) H 04/14/21 21:00 ABG pCO2 68.6 mm Hg 04/13/21 03:52 POC ABG pO2 143.7 mmHg (83-108) H 04/14/21 21:00 ABG pO2 98.9 mm Hg (80.0-90.0) H 04/13/21 03:52 POC ABG HCO3 26.2 04/14/21 21:00 ABG HCO3 25.5 mmol/L (20.0-26.0) 04/13/21 03:52 ABG O2 Saturation 98.8 (0-100) 04/14/21 21:00 ABG O2 Content 10.0 (0.0-44) 04/13/21 03:52 POC ABG Base Excess -1.9 04/14/21 21:00 ABG Base Excess -2.9 mmol/L (-2.0-3.0) L 04/13/21 03:52 ABG Hemoglobin 7.6 (12.0-17.5) L 04/14/21 21:00 ABG Oxyhemoglobin 97.6 (94-98) 04/14/21 21:00 ABG Carboxyhemoglobin 1.9 % (0.0-5.0) 04/13/21 03:52 ABG Methemoglobin 0.1 (0.0-1.5) 04/14/21 21:00 ABG Sodium 133.8 mmol/L (136.0-145.0) L 04/14/21 21:00 ABG Potassium 4.0 mmol/L (3.40-4.50) 04/14/21 21:00 ABG Chloride 101.0 mmol/L (98-107) 04/14/21 21:00 ABG Glucose 158 mg/dL (65-95) H 04/14/21 21:00 ABG Lactate Cancelled 04/03/21 20:45 Oxyhemoglobin 94.3 % (95.0-99.0) L 04/13/21 03:52 Carboxyhemoglobin 1.1 (0.5-1.5) 04/14/21 21:00 FiO2 65 % 04/13/21 03:52 FiO2 % 80.0 04/14/21 21:00 Sodium 137 mmol/L (137-145) 04/15/21 Unknown Potassium 4.3 mmol/L (3.6-5.0) 04/15/21 Unknown Chloride 98.5 mmol/L (98-107) 04/15/21 Unknown Carbon Dioxide 24 mmol/L (22-30) 04/15/21 Unknown Anion Gap 19 mmol/L 04/15/21 Unknown BUN 67 mg/dL (7-17) H 04/15/21 Unknown Creatinine 3.3 mg/dL (0.6-1.2) H 04/15/21 Unknown Estimated GFR 20 ml/min 04/15/21 Unknown BUN/Creatinine Ratio 20 % 04/15/21 Unknown Glucose 155 mg/dL (65-100) H 04/15/21 Unknown POC Glucose 147 mg/dL (70-105) H 04/14/21 23:53 Hemoglobin A1c 6.3 % (4-6) H 03/15/21 05:09 Lactic Acid 0.80 mmol/L (0.7-2.0) 04/07/21 03:50 Calcium 8.3 mg/dL (8.4-10.2) L 04/15/21 Unknown Phosphorus 5.70 mg/dL (2.5-4.5) H 04/15/21 Unknown Magnesium 1.90 mg/dL (1.7-2.3) 04/15/21 Unknown Ferritin 151.6 ng/mL (10.0-200.0) 03/18/21 04:30 Total Bilirubin 0.40 mg/dL (0.1-1.2) 04/15/21 Unknown Bilirubin Cancelled 04/03/21 20:45 AST 85 units/L (5-40) H 04/15/21 Unknown ALT 63 units/L (7-56) H 04/15/21 Unknown Alkaline Phosphatase 94 units/L (35-129) 04/15/21 Unknown Lactate Dehydrogenase 394 units/L (91-180) H 04/05/21 05:20 C-Reactive Protein 26.10 mg/dL (0.00-1.30) H 04/08/21 04:00 Total Protein 6.3 g/dL (6.3-8.2) 04/15/21 Unknown Albumin 2.4 g/dL (3.9-5) L 04/15/21 Unknown Albumin/Globulin Ratio 0.6 % 04/15/21 Unknown Triglycerides 406 mg/dL (2-149) H 04/11/21 04:15 Serotonin Release Assay TNR 03/22/21 08:20 Procalcitonin < 0.05 ng/mL (<0.15) 03/13/21 15:40 HCG, Qual Negative (Negative) 03/13/21 13:26 Arterial Blood Glucose 158 mg/dL (65-95) H 04/14/21 21:00 Arterial Blood Ionized Calcium 4.7 mg/dL (4.6-5.3) 04/14/21 21:00 Urine Color Sweta (Yellow) 04/06/21 Unknown Urine Turbidity Cloudy (Clear) 04/06/21 Unknown Urine pH 5.0 (5.0-7.0) 04/06/21 Unknown Ur Specific Douglas 1.020 (1.003-1.030) 04/06/21 Unknown Urine Protein 100 mg/dl mg/dL (Negative) 04/06/21 Unknown Urine Glucose (UA) Neg mg/dL (Negative) 04/06/21 Unknown Urine Ketones Neg mg/dL (Negative) 04/06/21 Unknown Urine Blood Mod (Negative) 04/06/21 Unknown Urine Nitrite Neg (Negative) 04/06/21 Unknown Urine Bilirubin Neg (Negative) 04/06/21 Unknown Urine Urobilinogen < 2.0 mg/dL (<2.0) 04/06/21 Unknown Ur Leukocyte Esterase Neg (Negative) 04/06/21 Unknown Urine WBC (Auto) 148.0 /HPF (0.0-6.0) H 04/06/21 Unknown Urine RBC (Auto) > 182.0 /HPF (0.0-6.0) 04/06/21 Unknown U Epithel Cells (Auto) 102.0 /HPF (0-13.0) H 04/06/21 Unknown Urine Bacteria (Auto) 1+ /HPF (Negative) 04/06/21 Unknown Ur Renal Epithelial Cell 151 /LPF 04/06/21 Unknown Urine Mucus Few /HPF 04/06/21 Unknown Urine Yeast (Budding) 3+ /HPF 04/06/21 Unknown Urine Creatinine 40.1 mg/dL (0.1-20.0) H 03/14/21 17:50 Urine Sodium 124 mmol/L 03/14/21 17:50 Random Vancomycin 13.6 ug/mL (0-40.0) 04/12/21 04:30 KIMBERLEY Screen Negative (Negative) 04/07/21 08:27 Heparin-induced Plt Ab Negative (Negative) 03/22/21 08:20 UF Heparin High Dose TNR 03/22/21 08:20 JUAN UFH Low Dose 0.1 TNR 03/22/21 08:20 JAUN UFH Low Dose 0.5 TNR 03/22/21 08:20 Coronavirus (PCR) Negative (Negative) 04/04/21 09:00 Hepatitis A IgM Ab Non-reactive (NonReactive) 03/15/21 05:09 Hep Bs Antigen Nonreactive (Negative) 03/15/21 05:09 Hep B Core IgM Ab Non-reactive (NonReactive) 03/15/21 05:09 Hepatitis C Antibody Non-reactive (NonReactive) 03/15/21 05:09 Schistocytes Smear None seen 03/31/21 12:11 Blood Type O POSITIVE 04/11/21 13:39 Antibody Screen Negative 04/11/21 13:39 Direct Antiglob Test Negative 03/31/21 23:18 NIKOLE, Poly Interpret Negative 03/31/21 23:18 Crossmatch See Detail 04/11/21 13:39 Microbiology: Microbiology 04/11/21 15:05 Bronchial Washings - Left Upper Lobe Respiratory Culture - Preliminary Enterococcus Species Bazan/IV: Voiding Method Incontinent Active Medications - Current Medications Current Medications: Generic Name Dose Route Start Last Admin Trade Name Freq PRN Reason Stop Dose Admin Acetaminophen 650 mg 03/31/21 12:41 04/15/21 05:55 Acetaminophen 325 Mg/10.15 Ml Oral Liqd Unit Dose FEEDTUBE 650 mg Q6H PRN Administration TEMP >/=100.4 Albumin Human 25 gm 04/01/21 08:19 04/01/21 16:23 Albumin Human 25% (25 Gm/100 Ml) Inj IV 25 gm KARLOS PRN Administration Hypotension Albuterol 2.5 mg 03/19/21 00:53 Albuterol 2.5 Mg/3 Ml Nebu IH Q4HRT PRN Shortness Of Breath Albuterol/Ipratropium 1 ampul 03/19/21 08:00 04/15/21 02:11 Ipratropium/Albuterol Sulfate 3 Ml Ampul.Neb IH Not Given Q6HRT INESSA Lipase/Protease/Amylase 1 each 04/09/21 17:17 Lipase 10,500/Protease 25,000/Amylase 43,750 (Units) Dr Cap FEEDTUBE PRN PRN For Clogged Feeding Tube Calcium Acetate 1,334 mg 04/03/21 20:00 04/14/21 22:05 Calcium Acetate 667 Mg Cap FEEDTUBE 1,334 mg TID INESSA Administration Dextrose 50 ml 03/14/21 11:02 03/15/21 11:40 Dextrose 50% In Water (25gm) 50 Ml Syringe IV 50 ml Q30MIN PRN Administration Hypoglycemia Protocol Famotidine 10 mg 03/17/21 22:00 04/14/21 22:04 Famotidine 10 Mg Tab PO 10 mg BID INESSA Administration Fentanyl 50 mcg 03/15/21 10:43 04/05/21 21:32 Fentanyl 100 Mcg/2 Ml Inj IV 50 mcg Q10MIN PRN Administration ANALGESIA Hydrocortisone Sodium Succinate 100 mg 04/10/21 00:00 04/15/21 00:19 Hydrocortisone Sod Succ 100 Mg/2 Ml Vial IV 100 mg Q8H INESSA Administration Hydrophilic Ointment 1 applic 03/14/21 17:50 Lip Therapy Vaseline TP Q2HR PRN Dry Lips Fentanyl Citrate 2,000 mcg in 100 mls @ 6.872 mls/hr 03/15/21 11:00 04/15/21 07:09 Fentanyl Drip Premix IV 4 mcg/kg/hr TITR INESSA 27.488 mls/hr Administration Protocol 1 MCG/KG/HR Sodium Chloride 500 mls @ 1 mls/hr 03/16/21 17:19 Nacl 0.9% 500 Ml IV DIRECT PRN ARTERIAL LINE FLUSH Midazolam HCl 100 mg/ Sodium 100 mls @ 1 mls/hr 03/30/21 15:00 04/14/21 15:45 Chloride IV 4 mg/hr TITR INESSA 4 mls/hr Titration Protocol 1 MG/HR Vasopressin 20 unit/ Sodium 101 mls @ 9.09 mls/hr 03/30/21 20:00 04/15/21 07:13 Chloride IV 0.03 units/min TITR INESSA 9.09 mls/hr Infusion 0.03 UNITS/MIN Phenylephrine HCl 100 mg/ 100 mls @ 3 mls/hr 03/31/21 04:00 04/06/21 07:58 Sodium Chloride IV 0 mcg/min TITR INESSA 0 mls/hr Titration Protocol 50 MCG/MIN Sodium Chloride 100 mls @ 999 mls/hr 04/01/21 08:19 Nacl 0.9% IV KARLOS PRN Hypotension Propofol 1,000 mg in 100 mls @ 4.26 mls/hr 04/07/21 13:00 04/12/21 12:52 Diprivan 10 Mg/Ml IV 0 mcg/kg/min TITR INESSA 0 mls/hr Titration Protocol 5 MCG/KG/MIN Micafungin Sodium 100 mg/ 100 mls @ 100 mls/hr 04/09/21 17:00 04/14/21 17:40 Sodium Chloride IV 100 mls/hr Q24H INESSA Administration Protocol Norepinephrine 8 mg/ Sodium 8 mg in 258 mls @ 3.87 mls/hr 04/12/21 04:00 04/14/21 17:39 Chloride IV 0 mcg/min TITRATE INESSA 0 mls/hr Titration Protocol 2 MCG/MIN MEROPENEM/NS 1 GRAM/100 ML 1 gram in 100 mls @ 100 mls/hr 04/12/21 22:00 04/14/21 22:05 Merrem/Ns 1 Gram/100 Ml IV 100 mls/hr Q24H INESSA Administration Protocol Sodium Chloride 1,000 mls @ 1 mls/hr 04/14/21 16:45 04/14/21 16:57 Nacl 0.9% 1000 Ml IV 1 mls/hr DIRECT INESSA Administration Insulin Human Lispro 0 unit 03/14/21 12:00 04/15/21 06:07 Insulin Lispro 100 Unit/Ml SUB-Q Not Given Q6HR INESSA Protocol Lorazepam 1 mg 03/13/21 19:40 03/30/21 19:58 Lorazepam 2 Mg/Ml Vial IV 1 mg Q4H PRN Administration Anxiety Multi-Ingred Cream/Lotion/Oil/Oint 1 applic 03/14/21 17:50 04/10/21 22:03 Mineral Oil/Petrolatum, White Ophth Oint 3.5 Gm OU 1 applic Q4HR PRN Administration Dry Eye(s) Ondansetron HCl 4 mg 03/13/21 19:30 03/21/21 12:05 Ondansetron 4 Mg/2 Ml Inj IV 4 mg Q8H PRN Administration Nausea And Vomiting Quetiapine Fumarate 300 mg 04/06/21 22:00 04/14/21 22:05 Quetiapine 100 Mg Tab PO 300 mg BID INESSA Administration Senna/Docusate Sodium 1 tab 03/14/21 22:00 04/14/21 22:06 Sennosides/Docusate Sodium 8.6/50 Mg Tab FEEDTUBE Not Given BID INESSA Simple Syrup 15 ml 04/09/21 17:17 Simple Syrup 15 Ml FEEDTUBE PRN PRN Hypoglycemia Simple Syrup 30 ml 04/09/21 17:17 Simple Syrup 15 Ml FEEDTUBE PRN PRN Hypoglycemia Sodium Bicarbonate 325 mg 04/09/21 17:17 Sodium Bicarbonate 325 Mg Tab FEEDTUBE PRN PRN For Clogged Feeding Tube Sodium Chloride 10 ml 03/13/21 22:00 04/14/21 22:17 Sodium Chloride 0.9% 10 Ml Flush Syringe IV 10 ml BID INESSA Administration Sodium Chloride 10 ml 03/13/21 19:30 Sodium Chloride 0.9% 10 Ml Flush Syringe IV PRN PRN LINE FLUSH Nutrition/Malnutrition Assess - Dietary Evaluation Nutrition/Malnutrition Findings: Nutrition Notes Start: 03/15/21 11:06 Freq: Status: Active Protocol: Document 04/14/21 11:13 CANDACE (Rec: 04/14/21 11:52 CANDACE [id number]) Nutrition Notes Initial or Follow up Reassessment Other Pertinent Diagnosis [id number], Transaminitis, Hyperglycemia. Current Diet TF -Glucerna 1.2 Abdullahi (since L 04/14). Labs/Tests 04/14: BUN 74, Crea 3.1, Glu 220. Pertinent Medications 04/14 Vit C, D50w (25 g) mEq, Insulin, Zn, Propofol 1,000 mg /100 ml @ 4.26 ml/hr, others nutritionally unremarkable. Height 5 ft 5 in Weight 142 kg [place] Body Weight (kg) 56.81 BMI 52.0 Weight change and time frame No new reports on body weight changes, Weight Status Morbidly Obese Subjective/Other Information RD consult on change TF from Nepro w/CARBSTEADY to Glucerna 1,2 Abdullahi, due to lack of stock Nepro. Percent of energy/protein needs met: 100% Kcal; 85% AA. Burn Absent Trauma Absent GI Symptoms None Food Allergy No Skin Integrity/Comment Clear, warm, dry. Current % PO Other Minimum of two criteria No Is patient on ventilator? Yes Is Patient Ambulatory and/or Out of Bed No REE-([facility]-confined to bed) 2570.232 Kcal/Kg value to use for calculation 14 Approximate Energy Requirements Using 1988 kcal/Kg Calculation Used for Recommendations Kcal/kg Additional Notes Pro needs >1.2g/kg adjBW: > 117g/day Fluid needs 1-1.5L/day Nutrition Intervention Nutrition Support: Change to Glucerna 1.2 Abdullahi @ 69 ml/hr. Flush: 109 ml water Q 4 hr. Kcal 1,988 Protein (gm) 99 Carbohydrates (gm) 190 Fat (gm) 99 Fluid (mL) 1,334 Fiber (gm) 27 % RDI: 100% Kcal; 85% AA. Goal #1 Maintain body weight within +/ -3% of admission BWt during LOS. Goal #2 Reach and maintain acceptable chemistry lab values during LOS. Follow-Up By: 04/16/21 Additional Comments Continue monitoring TF tolerance, Hydration, and BM.
[2021-04-13] MEDS: MEROPENEM/NS 1 GRAM/100 ML 1 GRAM/100 ML BAG IV SCH (22:16)
[2021-04-13] MEDS: MICAFUNGIN 100 MG in SODIUM CHLORIDE 0.9% 100 ML IV SCH (22:23)
[2021-04-14] MEDS: INSULIN LISPRO 100 UNIT/ML SUB-Q SCH ×4 (00:34→17:42)
[2021-04-14] MEDS: HYDROCORTISONE SOD SUCC 100 MG/2 ML VIAL IV SCH ×3 (00:34→15:44)
[2021-04-14] MEDS: diphenhydrAMINE 50 MG/ML VIAL IV SCH ×4 (00:34→17:41)
[2021-04-14] MEDS: fentaNYL DRIP Premix 2,000 MCG/100 ML BAG IV SCH ×6 (02:01→21:30)
[2021-04-14] MEDS: IPRATROPIUM/ALBUTEROL SULFATE 3 ML AMPUL.NEB IH SCH ×5 (02:12→20:23)
[2021-04-14 05:02] LABS: Hematocrit 23.4 % (30.3-42.9); Hemoglobin 7.5 gm/dl (10.1-14.3); Mean Corpuscular HGB Conc 32 % (30-34); Mean Corpuscular Volume 91 fl (79-97); Red Blood Count 2.58 M/mm3 (3.65-5.03); Red Cell Distribution Width 17.1 % (13.2-15.2)
[2021-04-14 05:06] LABS: Platelet Count 45 K/mm3 (140-440)
[2021-04-14 05:20] LABS: Calcium 8.4 mg/dL (8.4-10.2)
[2021-04-14] MEDS: CALCIUM ACETATE 667 MG CAP FEEDTUBE SCH ×3 (08:10→22:05)
[2021-04-14] MEDS ORDERED: SODIUM CHLORIDE 0.9% 500 ML 500 ML IV NR (08:37)
[2021-04-14] MEDS: ZINC SULFATE 220 MG CAP PO SCH (09:08)
[2021-04-14] MEDS: QUEtiapine 100 MG TAB PO SCH ×2 (09:08→22:05)
[2021-04-14] MEDS: ASCORBIC ACID 500 MG TAB PO SCH (09:08)
[2021-04-14] MEDS: FAMOTIDINE 10 MG TAB PO SCH ×2 (09:08→22:04)
[2021-04-14] MEDS: SENNOSIDES/DOCUSATE SODIUM 8.6/50 MG TAB FEEDTUBE SCH ×2 (09:09→22:06)
--- NOTE | 2021-04-14 09:28 | Hem/Onc Progress Note ---
Subjective Date of service: 04/14/21 Interval history: Heme progress note cpt: [id number] Dx: thrombocytopenia 31yo obese AA woman 300 lbs, with covid infection and ARF requiring hD s/p plasma exchange x 2 days, has had hypotension, on pressors h/o asthma and intubation 2018 h/o crohns disease per notes S/p ETT exchange and bronchoscopy 04/11 due to bloody secretions DATA REVIEWED BELOW Hct 24 Plts 140 Fib 455 IMP: Continues with severe anemia high WBC is "reactive"-not heme malignancy Noted to have thrombocytopenia, could be related to covid infection HIT testing negative REC/PLAN: Labs to include repeat HIT testing, coags Transfuse 1 dose of platelets whenevr <20 Transfuse 1 unit RBC whenever hct<23 Family meeting with palliative care appropriate Laboratory Last Values WBC 11.8 K/mm3 (4.5-11.0) H 04/14/21 04:43 RBC 2.58 M/mm3 (3.65-5.03) L 04/14/21 04:43 Hgb 7.5 gm/dl (10.1-14.3) L 04/14/21 04:43 Hct 23.4 % (30.3-42.9) L 04/14/21 04:43 Plt Count 45 K/mm3 (140-440) L 04/14/21 04:43 PT 16.0 Sec. (12.2-14.9) H 04/13/21 04:44 INR 1.16 (0.87-1.13) H 04/13/21 04:44 APTT 28.9 Sec. (24.2-36.6) 04/04/21 07:55 Fibrinogen 362 mg/dl (211-480) 04/13/21 16:00 D-Dimer 2696.79 ng/mlDDU (0-234) H 04/08/21 04:40 Heparin Anti-Xa, Unfract TNR 03/22/21 08:20 AST 38 units/L (5-40) 04/07/21 04:00 ALT 38 units/L (7-56) 04/07/21 04:00 Alkaline Phosphatase 167 units/L (35-129) H 04/07/21 04:00 Lactate Dehydrogenase 394 units/L (91-180) H 04/05/21 05:20 C-Reactive Protein 26.10 mg/dL (0.00-1.30) H 04/08/21 04:00 Coronavirus (PCR) Negative (Negative) 04/04/21 09:00 Hepatitis A IgM Ab Non-reactive (NonReactive) 03/15/21 05:09 Hep Bs Antigen Nonreactive (Negative) 03/15/21 05:09 Hep B Core IgM Ab Non-reactive (NonReactive) 03/15/21 05:09 Hepatitis C Antibody Non-reactive (NonReactive) 03/15/21 05:09 Schistocytes Smear None seen 03/31/21 12:11 Blood Type O POSITIVE 04/11/21 13:39 Antibody Screen Negative 04/11/21 13:39 Direct Antiglob Test Negative 03/31/21 23:18 NIKOLE, Poly Interpret Negative 03/31/21 23:18 Crossmatch See Detail 04/11/21 13:39 Objective - Constitutional Vitals: Last Vital Signs Temp 100.4 F H 04/14/21 08:00 Pulse 125 H 04/14/21 08:45 Resp 16 04/14/21 08:45 BP 112/52 04/14/21 08:45 Pulse Ox 96 04/14/21 08:30 - Labs Lab Results: Laboratory Results - last 24 hr 04/11/21 04/13/21 04/13/21 13:39 11:32 16:00 WBC RBC Hgb Hct MCV MCH MCHC RDW Plt Count Fibrinogen 362 ABG pH POC ABG pCO2 POC ABG pO2 POC ABG HCO3 ABG O2 Saturation POC ABG Base Excess ABG Hemoglobin ABG Oxyhemoglobin ABG Methemoglobin ABG Sodium ABG Potassium ABG Chloride ABG Glucose Carboxyhemoglobin FiO2 % Sodium Potassium Chloride Carbon Dioxide Anion Gap BUN Creatinine Estimated GFR BUN/Creatinine Ratio Glucose POC Glucose 169 H Calcium Arterial Blood Glucose Arterial Blood Ionized Calcium Blood Type O POSITIVE Antibody Screen Negative Crossmatch See Detail 04/13/21 04/13/21 04/13/21 17:28 21:00 23:28 WBC RBC Hgb Hct MCV MCH MCHC RDW Plt Count Fibrinogen ABG pH 7.354 POC ABG pCO2 48.6 H POC ABG pO2 93.8 POC ABG HCO3 26.5 ABG O2 Saturation 97.0 POC ABG Base Excess 0.7 ABG Hemoglobin 8.3 L ABG Oxyhemoglobin 96.3 ABG Methemoglobin 0.3 ABG Sodium 134.6 L ABG Potassium 4.0 ABG Chloride 101.0 ABG Glucose 243 H Carboxyhemoglobin 0.4 L FiO2 % 60.0 Sodium Potassium Chloride Carbon Dioxide Anion Gap BUN Creatinine Estimated GFR BUN/Creatinine Ratio Glucose POC Glucose 174 H 207 H Calcium Arterial Blood Glucose 243 H Arterial Blood Ionized Calcium 4.6 Blood Type Antibody Screen Crossmatch 04/14/21 04/14/21 04:43 04:43 WBC 11.8 H RBC 2.58 L Hgb 7.5 L Hct 23.4 L MCV 91 MCH 29 MCHC 32 RDW 17.1 H Plt Count 45 L Fibrinogen ABG pH POC ABG pCO2 POC ABG pO2 POC ABG HCO3 ABG O2 Saturation POC ABG Base Excess ABG Hemoglobin ABG Oxyhemoglobin ABG Methemoglobin ABG Sodium ABG Potassium ABG Chloride ABG Glucose Carboxyhemoglobin FiO2 % Sodium 139 Potassium 4.2 Chloride 99.9 Carbon Dioxide 24 Anion Gap 19 BUN 74 H Creatinine 3.1 H Estimated GFR 21 BUN/Creatinine Ratio 24 Glucose 220 H POC Glucose Calcium 8.4 Arterial Blood Glucose Arterial Blood Ionized Calcium Blood Type Antibody Screen Crossmatch Medications & Allergies - Medications Allergies/Adverse Reactions: Allergies oxycodone HCl [From Percocet] Allergy (Severe, Verified 03/30/21 14:01) Swelling cefepime Allergy (Verified 04/06/21 13:38) Rash hydrocodone bitartrate [From Vicodin] Allergy (Verified 03/31/21 08:20) Swelling ALLERGY TO TYLENOL VS OXYCODONE ACTIVE ORDER REMOVED FROM [facility] SINCE UNABLE TO CONFIRM WITH FAMILY Home Medications: Home Medications Medication Instructions Recorded Confirmed Last Taken Type Chlorhexidine Mouthwash [Peridex] 15 ml MM BID #1 bottle 10/11/20 03/13/21 Unknown Rx Clindamycin [Clindamycin CAP] 300 mg PO Q8H #21 cap 10/11/20 03/13/21 Unknown Rx Naproxen 500 mg PO Q12H PRN #12 tablet 10/11/20 03/13/21 Unknown Rx Butalb/Acetamin/Caff 50-325-40 1 - 2 tab PO Q6HR PRN #15 tab 12/05/20 03/13/21 Unknown Rx [Fioricet 50-325-40] Famotidine [Pepcid] 20 mg PO BID #30 tablet 12/05/20 03/13/21 Unknown Rx Ketorolac [Toradol] 10 mg PO Q8H PRN #20 tablet 12/05/20 03/13/21 Unknown Rx Ondansetron [Zofran Odt] 4 mg PO Q6HR PRN #20 tab.rapdis 12/05/20 03/13/21 Unknown Rx Albuterol Sulfate [Proair 90 mcg IH Q4HR PRN #2 [email or web address] 01/01/21 03/13/21 Unknown Rx Respiclick] Mupirocin [Bactroban 2% OINT] 1 applic TP BID 7 Days #1 tube 01/01/21 03/13/21 Unknown Rx Triamcinolone Aceton 0.1% (Nf) 1 applic TP BID 14 Days #1 tube 01/01/21 03/13/21 Unknown Rx [Kenalog (NF)] predniSONE [Deltasone] 40 mg PO QDAY #8 tab 01/01/21 03/13/21 Unknown Rx Active Medications: Generic Name Dose Route Start Last Admin Trade Name Freq PRN Reason Stop Dose Admin Acetaminophen 650 mg 03/31/21 12:41 04/13/21 07:55 Acetaminophen 325 Mg/10.15 Ml Oral Liqd Unit Dose FEEDTUBE 650 mg Q6H PRN Administration TEMP >/=100.4 Albumin Human 25 gm 04/01/21 08:19 04/01/21 16:23 Albumin Human 25% (25 Gm/100 Ml) Inj IV 25 gm KARLOS PRN Administration Hypotension Albuterol 2.5 mg 03/19/21 00:53 Albuterol 2.5 Mg/3 Ml Nebu IH Q4HRT PRN Shortness Of Breath Albuterol/Ipratropium 1 ampul 03/19/21 08:00 04/14/21 07:26 Ipratropium/Albuterol Sulfate 3 Ml Ampul.Neb IH 1 ampul Q6HRT INESSA Administration Lipase/Protease/Amylase 1 each 04/09/21 17:17 Lipase 10,500/Protease 25,000/Amylase 43,750 (Units) Dr White FEEDTUBE PRN PRN For Clogged Feeding Tube Ascorbic Acid 500 mg 03/14/21 22:00 04/14/21 09:08 Ascorbic Acid 500 Mg Tab PO 500 mg BID INESSA Administration Calcium Acetate 1,334 mg 04/03/21 20:00 04/14/21 08:10 Calcium Acetate 667 Mg Cap FEEDTUBE 1,334 mg TID INESSA Administration Dextrose 50 ml 03/14/21 11:02 03/15/21 11:40 Dextrose 50% In Water (25gm) 50 Ml Syringe IV 50 ml Q30MIN PRN Administration Hypoglycemia Protocol Diphenhydramine HCl 50 mg 04/13/21 18:00 04/14/21 05:44 Diphenhydramine 50 Mg/Ml Vial IV 04/14/21 18:01 50 mg Q6HR INESSA Administration Famotidine 10 mg 03/17/21 22:00 04/14/21 09:08 Famotidine 10 Mg Tab PO 10 mg BID INESSA Administration Fentanyl 50 mcg 03/15/21 10:43 04/05/21 21:32 Fentanyl 100 Mcg/2 Ml Inj IV 50 mcg Q10MIN PRN Administration ANALGESIA Hydrocortisone Sodium Succinate 100 mg 04/10/21 00:00 04/14/21 08:11 Hydrocortisone Sod Succ 100 Mg/2 Ml Vial IV 100 mg Q8H INESSA Administration Hydrophilic Ointment 1 applic 03/14/21 17:50 Lip Therapy Vaseline TP Q2HR PRN Dry Lips Fentanyl Citrate 2,000 mcg in 100 mls @ 6.872 mls/hr 03/15/21 11:00 04/14/21 09:08 Fentanyl Drip Premix IV 4 mcg/kg/hr TITR INESSA 27.488 mls/hr Administration Protocol 1 MCG/KG/HR Sodium Chloride 500 mls @ 1 mls/hr 03/16/21 17:19 Nacl 0.9% 500 Ml IV DIRECT PRN ARTERIAL LINE FLUSH Midazolam HCl 100 mg/ Sodium 100 mls @ 1 mls/hr 03/30/21 15:00 04/13/21 17:37 Chloride IV 5 mg/hr TITR INESSA 5 mls/hr Administration Protocol 1 MG/HR Vasopressin 20 unit/ Sodium 101 mls @ 9.09 mls/hr 03/30/21 20:00 04/14/21 07:11 Chloride IV 0.03 units/min TITR INESSA 9.09 mls/hr Infusion 0.03 UNITS/MIN Phenylephrine HCl 100 mg/ 100 mls @ 3 mls/hr 03/31/21 04:00 04/06/21 07:58 Sodium Chloride IV 0 mcg/min TITR INESSA 0 mls/hr Titration Protocol 50 MCG/MIN Sodium Chloride 100 mls @ 999 mls/hr 04/01/21 08:19 Nacl 0.9% IV KARLOS PRN Hypotension Propofol 1,000 mg in 100 mls @ 4.26 mls/hr 04/07/21 13:00 04/12/21 12:52 Diprivan 10 Mg/Ml IV 0 mcg/kg/min TITR INESSA 0 mls/hr Titration Protocol 5 MCG/KG/MIN Micafungin Sodium 100 mg/ 100 mls @ 100 mls/hr 04/09/21 17:00 04/13/21 22:23 Sodium Chloride IV Not Given Q24H INESSA Protocol Norepinephrine 8 mg/ Sodium 8 mg in 258 mls @ 3.87 mls/hr 04/12/21 04:00 04/14/21 00:30 Chloride IV 0 mcg/min TITRATE INESSA 0 mls/hr Titration Protocol 2 MCG/MIN MEROPENEM/NS 1 GRAM/100 ML 1 gram in 100 mls @ 100 mls/hr 04/12/21 22:00 04/13/21 22:16 Merrem/Ns 1 Gram/100 Ml IV 100 mls/hr Q24H INESSA Administration Protocol Sodium Chloride 500 mls @ 0 mls/hr 04/14/21 08:37 Nacl 0.9% 500 Ml IV 04/14/21 23:59 ONCE NR As Directed Insulin Human Lispro 0 unit 03/14/21 12:00 04/14/21 05:45 Insulin Lispro 100 Unit/Ml SUB-Q 4 unit Q6HR INESSA Administration Protocol Lorazepam 1 mg 03/13/21 19:40 03/30/21 19:58 Lorazepam 2 Mg/Ml Vial IV 1 mg Q4H PRN Administration Anxiety Multi-Ingred Cream/Lotion/Oil/Oint 1 applic 03/14/21 17:50 04/10/21 22:03 Mineral Oil/Petrolatum, White Ophth Oint 3.5 Gm OU 1 applic Q4HR PRN Administration Dry Eye(s) Ondansetron HCl 4 mg 03/13/21 19:30 03/21/21 12:05 Ondansetron 4 Mg/2 Ml Inj IV 4 mg Q8H PRN Administration Nausea And Vomiting Quetiapine Fumarate 300 mg 04/06/21 22:00 12/01/21 09:08 Quetiapine 100 Mg Tab PO 300 mg BID INESSA Administration Senna/Docusate Sodium 1 tab 03/14/21 22:00 04/14/21 09:09 Sennosides/Docusate Sodium 8.6/50 Mg Tab FEEDTUBE Not Given BID INESSA Simple Syrup 15 ml 04/09/21 17:17 Simple Syrup 15 Ml FEEDTUBE PRN PRN Hypoglycemia Simple Syrup 30 ml 04/09/21 17:17 Simple Syrup 15 Ml FEEDTUBE PRN PRN Hypoglycemia Sodium Bicarbonate 325 mg 04/09/21 17:17 Sodium Bicarbonate 325 Mg Tab FEEDTUBE PRN PRN For Clogged Feeding Tube Sodium Chloride 10 ml 03/13/21 22:00 04/14/21 09:09 Sodium Chloride 0.9% 10 Ml Flush Syringe IV 10 ml BID INESSA Administration Sodium Chloride 10 ml 03/13/21 19:30 Sodium Chloride 0.9% 10 Ml Flush Syringe IV PRN PRN LINE FLUSH Zinc Sulfate 220 mg 03/14/21 22:00 04/14/21 09:08 Zinc Sulfate 220 Mg Cap PO 220 mg BID INESSA Administration
[2021-04-14] MEDS ORDERED: SIMPLE SYRUP 15 ML FEEDTUBE PRN ×2 (11:25)
[2021-04-14] MEDS ORDERED: LIPASE 10,500/PROTEASE 25,000/AMYLASE 43,750 (UNITS) DR CAP FEEDTUBE PRN (11:25)
[2021-04-14] MEDS: VASOPRESSIN 20 UNIT in SODIUM CHLORIDE 0.9% 100 ML IV SCH ×2 (11:25→22:39)
[2021-04-14] MEDS ORDERED: SODIUM BICARBONATE 325 MG TAB FEEDTUBE PRN (11:25)
[2021-04-14] MEDS: MIDAZOLAM 100 MG in SODIUM CHLORIDE 0.9% 80 ML IV SCH (11:25)
--- NOTE | 2021-04-14 12:36 | Progress Note ---
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 - continue empiric Micafungin & Meropenem - resume Neosynephrine for MAP's > 65 mmHg but also keep SBP > 100 mmHg while on dialysis - CT head (no contrast), then CT chest, abd & pelvis (with contrast) if possible prior to Dialysis - Fibrinogen WNL - continue PCV; ventilation much better as is pH - repeat ABG at 9 pm today and address - HD/UF today - continue care as below otherwise; - wean vasopressors for target MAP > 65 mmHg - nephrology input appreciated; HD/UF for toxin and volume clearance - continue Daily SAT and SBT assessment as tolerated - continue to wean supplemental oxygen for target O2 sat's > 90% acutely - VAP bundle addressed - continue lung protective strategies - continue bronchodilators with pulmonary hygiene per RT - wean per pulmonary driven protocols otherwise - continue accuchecks with glycemic control per SSI (While critically ill target blood glucose of 140-180 mg/dL; avoid hypoglycemia) - sedation prn for target RASS 0 to -1 - avoid nephrotoxins, renally dose all medications - continue to avoid benzodiazepine's, reduce the possibility of delirium - de-escalate AB's per ID rec's - prn analgesia per CPOT score - Maintenance of sleep-wake cycle, avoid delirium - continue enteral nutritional support at goal rate as tolerated - G.I. & VTE prophylaxis - PT/OT/ROM exercises - continue mobility protocols for pressure ulcer prophylaxis - Monitor hemodynamics closely - continue other care per attending / other consultants - discharge planning ongoing concurrently COVID SPECIFIC INTERVENTIONS - Isolation discontinued - s/p Actemra - Remdesivir as per ID/Pulmonary developed protocols (not a candidate) - continue systemic steroids for severe COVID-19 infection empirically - repeat COVID tests result negative - zinc and vitamin C supplementation - Monitor inflammatory markers per facility protocol - ferritin, Ddimer, CRP - therapeutic anticoagulation per system Protocol based on d-dimer and clinical considerations (VTE prophylaxis) - Continue contact and airborne isolation .... Re-evaluate in am & prn CONDITION: CRITICAL PROGNOSIS: GUARDED CODE STATUS: FULL CODE The high probability of a clinically significant, sudden or life-threatening deterioration of the [respiratory, cardiovascular, renal & neurologic] system(s) required my full and direct attention, intervention and personal management. The aggregate critical care time was [35] minutes without overlap. Time includes spent on; [x] Data Review and interpretation [x] Patient assessment and monitoring of vital signs [x] Documentation [x] Medication orders and management Subjective Date of service: 04/14/21 Principal diagnosis: Ac hypoxemic resp failure; AE-Asthma; SAI; Crohn's; COVID- 19; Pneumonia Interval history: Patient is seen today for: Acute hypoxemic respiratory failure; AE-Asthma; SAI; Crohn's disease; COVID-19 infection; Pneumonia (CAP) Seen and examined at bedside; 24hour events reviewed; nursing and respiratory care staff consulted; no adverse overnight events reported to me; resting in bed; remains on MVS; thrombocytopenia persistent and to receive 1 unit of pharesed platelets; also received high dose steroid treatment; family conference today tentatively; HD/UF ongoing and started on vasopressors for support Objective Vital Signs - 12hr 04/14/21 04/14/21 04/14/21 00:45 01:00 01:15 Temperature Pulse Rate 116 H 115 H 117 H Pulse Rate [ Anterior Bilateral Throughout] Pulse Rate [ From Monitor] Respiratory 33 H 33 H 33 H Rate Respiratory Rate [Anterior Bilateral Throughout] Blood Pressure 146/81 146/84 149/77 O2 Sat by Pulse 92 94 94 Oximetry O2 Sat by Pulse Oximetry [ Anterior Bilateral Throughout] 04/14/21 04/14/21 04/14/21 01:30 01:45 02:00 Temperature Pulse Rate 118 H 119 H 122 H Pulse Rate [ Anterior Bilateral Throughout] Pulse Rate [ From Monitor] Respiratory 33 H 33 H 30 H Rate Respiratory Rate [Anterior Bilateral Throughout] Blood Pressure 141/75 137/73 142/70 O2 Sat by Pulse 93 93 93 Oximetry O2 Sat by Pulse Oximetry [ Anterior Bilateral Throughout] 04/14/21 04/14/21 04/14/21 02:08 02:15 02:30 Temperature Pulse Rate 122 H 124 H Pulse Rate [ 120 H Anterior Bilateral Throughout] Pulse Rate [ From Monitor] Respiratory 35 H 31 H Rate Respiratory 31 H Rate [Anterior Bilateral Throughout] Blood Pressure 141/74 141/74 O2 Sat by Pulse 96 97 Oximetry O2 Sat by Pulse Oximetry [ Anterior Bilateral Throughout] 04/14/21 04/14/21 04/14/21 02:45 03:00 03:15 Temperature Pulse Rate 128 H 132 H 132 H Pulse Rate [ Anterior Bilateral Throughout] Pulse Rate [ From Monitor] Respiratory 32 H 25 H 26 H Rate Respiratory Rate [Anterior Bilateral Throughout] Blood Pressure 132/38 132/38 123/36 O2 Sat by Pulse 91 92 91 Oximetry O2 Sat by Pulse Oximetry [ Anterior Bilateral Throughout] 04/14/21 04/14/21 04/14/21 03:30 03:37 03:45 Temperature 100.4 F H Pulse Rate 134 H 134 H Pulse Rate [ Anterior Bilateral Throughout] Pulse Rate [ From Monitor] Respiratory 26 H 27 H Rate Respiratory Rate [Anterior Bilateral Throughout] Blood Pressure 118/42 122/34 O2 Sat by Pulse 88 90 Oximetry O2 Sat by Pulse Oximetry [ Anterior Bilateral Throughout] 04/14/21 04/14/21 04/14/21 04:00 04:08 04:15 Temperature Pulse Rate 133 H 134 H 133 H Pulse Rate [ Anterior Bilateral Throughout] Pulse Rate [ 136 H From Monitor] Respiratory 28 H 23 Rate Respiratory Rate [Anterior Bilateral Throughout] Blood Pressure 122/34 123/34 117/32 O2 Sat by Pulse 94 93 92 Oximetry O2 Sat by Pulse Oximetry [ Anterior Bilateral Throughout] 04/14/21 04/14/21 04/14/21 04:30 04:45 05:00 Temperature Pulse Rate 133 H 134 H 136 H Pulse Rate [ Anterior Bilateral Throughout] Pulse Rate [ From Monitor] Respiratory 23 23 25 H Rate Respiratory Rate [Anterior Bilateral Throughout] Blood Pressure 122/34 134/35 127/32 O2 Sat by Pulse 93 90 94 Oximetry O2 Sat by Pulse Oximetry [ Anterior Bilateral Throughout] 04/14/21 04/14/21 04/14/21 05:16 05:30 05:45 Temperature Pulse Rate 134 H 134 H 134 H Pulse Rate [ Anterior Bilateral Throughout] Pulse Rate [ From Monitor] Respiratory 22 18 23 Rate Respiratory Rate [Anterior Bilateral Throughout] Blood Pressure 113/31 119/40 120/37 O2 Sat by Pulse 95 90 93 Oximetry O2 Sat by Pulse Oximetry [ Anterior Bilateral Throughout] 04/14/21 04/14/21 04/14/21 06:00 06:16 06:30 Temperature Pulse Rate 133 H 133 H 131 H Pulse Rate [ Anterior Bilateral Throughout] Pulse Rate [ From Monitor] Respiratory 22 20 19 Rate Respiratory Rate [Anterior Bilateral Throughout] Blood Pressure 123/46 116/38 116/38 O2 Sat by Pulse 95 86 90 Oximetry O2 Sat by Pulse Oximetry [ Anterior Bilateral Throughout] 04/14/21 04/14/21 04/14/21 06:46 07:00 07:15 Temperature Pulse Rate 132 H 130 H 130 H Pulse Rate [ Anterior Bilateral Throughout] Pulse Rate [ From Monitor] Respiratory 18 16 17 Rate Respiratory Rate [Anterior Bilateral Throughout] Blood Pressure 113/22 118/88 O2 Sat by Pulse 90 93 92 Oximetry O2 Sat by Pulse Oximetry [ Anterior Bilateral Throughout] 04/14/21 04/14/21 04/14/21 07:26 07:29 07:30 Temperature 100.4 F H Pulse Rate 126 H 125 H Pulse Rate [ 126 H Anterior Bilateral Throughout] Pulse Rate [ From Monitor] Respiratory 15 Rate Respiratory 30 H Rate [Anterior Bilateral Throughout] Blood Pressure 118/88 118/88 O2 Sat by Pulse 94 94 Oximetry O2 Sat by Pulse Oximetry [ Anterior Bilateral Throughout] 04/14/21 04/14/21 04/14/21 07:45 08:00 08:15 Temperature 100.4 F H Pulse Rate 127 H 127 H 125 H Pulse Rate [ Anterior Bilateral Throughout] Pulse Rate [ 127 H From Monitor] Respiratory 15 30 H 16 Rate Respiratory Rate [Anterior Bilateral Throughout] Blood Pressure 130/52 130/52 115/48 O2 Sat by Pulse 96 91 Oximetry O2 Sat by Pulse Oximetry [ Anterior Bilateral Throughout] 04/14/21 04/14/21 04/14/21 08:30 08:45 09:00 Temperature Pulse Rate 125 H 125 H 123 H Pulse Rate [ Anterior Bilateral Throughout] Pulse Rate [ From Monitor] Respiratory 16 16 14 Rate Respiratory Rate [Anterior Bilateral Throughout] Blood Pressure 115/48 112/52 112/52 O2 Sat by Pulse 96 94 Oximetry O2 Sat by Pulse Oximetry [ Anterior Bilateral Throughout] 04/14/21 04/14/21 04/14/21 09:15 09:30 09:45 Temperature Pulse Rate 124 H 124 H 125 H Pulse Rate [ Anterior Bilateral Throughout] Pulse Rate [ From Monitor] Respiratory 15 16 17 Rate Respiratory Rate [Anterior Bilateral Throughout] Blood Pressure 120/52 126/49 127/53 O2 Sat by Pulse 93 95 95 Oximetry O2 Sat by Pulse Oximetry [ Anterior Bilateral Throughout] 04/14/21 04/14/21 04/14/21 10:00 10:16 10:30 Temperature Pulse Rate 126 H 129 H 127 H Pulse Rate [ Anterior Bilateral Throughout] Pulse Rate [ From Monitor] Respiratory 14 16 14 Rate Respiratory Rate [Anterior Bilateral Throughout] Blood Pressure 127/53 136/37 136/37 O2 Sat by Pulse 93 89 93 Oximetry O2 Sat by Pulse Oximetry [ Anterior Bilateral Throughout] 04/14/21 04/14/21 04/14/21 10:40 10:50 11:00 Temperature Pulse Rate 130 H 132 H 130 H Pulse Rate [ Anterior Bilateral Throughout] Pulse Rate [ From Monitor] Respiratory 14 15 13 Rate Respiratory Rate [Anterior Bilateral Throughout] Blood Pressure 127/30 132/61 132/61 O2 Sat by Pulse 91 88 90 Oximetry O2 Sat by Pulse Oximetry [ Anterior Bilateral Throughout] 04/14/21 04/14/21 04/14/21 11:10 11:16 11:20 Temperature 99.9 F H Pulse Rate 130 H 128 H 129 H Pulse Rate [ Anterior Bilateral Throughout] Pulse Rate [ From Monitor] Respiratory 15 15 14 Rate Respiratory Rate [Anterior Bilateral Throughout] Blood Pressure 128/56 117/32 117/32 O2 Sat by Pulse 90 89 Oximetry O2 Sat by Pulse 94 Oximetry [ Anterior Bilateral Throughout] 04/14/21 04/14/21 04/14/21 11:27 11:30 11:32 Temperature 100.0 F H Pulse Rate 127 H 127 H Pulse Rate [ Anterior Bilateral Throughout] Pulse Rate [ From Monitor] Respiratory 15 Rate Respiratory Rate [Anterior Bilateral Throughout] Blood Pressure 123/34 123/60 O2 Sat by Pulse 86 Oximetry O2 Sat by Pulse Oximetry [ Anterior Bilateral Throughout] 04/14/21 04/14/21 04/14/21 11:39 11:40 11:45 Temperature Pulse Rate 127 H 127 H 123 H Pulse Rate [ Anterior Bilateral Throughout] Pulse Rate [ From Monitor] Respiratory 11 L Rate Respiratory Rate [Anterior Bilateral Throughout] Blood Pressure 123/60 123/60 95/33 O2 Sat by Pulse 97 97 Oximetry O2 Sat by Pulse Oximetry [ Anterior Bilateral Throughout] 04/14/21 04/14/21 04/14/21 11:50 11:59 12:00 Temperature 99.5 F Pulse Rate 123 H 117 H 115 H Pulse Rate [ Anterior Bilateral Throughout] Pulse Rate [ From Monitor] Respiratory 10 L 10 L Rate Respiratory Rate [Anterior Bilateral Throughout] Blood Pressure 95/33 102/31 118/40 O2 Sat by Pulse 96 97 Oximetry O2 Sat by Pulse Oximetry [ Anterior Bilateral Throughout] 04/14/21 04/14/21 12:03 12:15 Temperature 99.5 F Pulse Rate 111 H 106 H Pulse Rate [ Anterior Bilateral Throughout] Pulse Rate [ From Monitor] Respiratory 11 L Rate Respiratory Rate [Anterior Bilateral Throughout] Blood Pressure 107/61 126/75 O2 Sat by Pulse 100 Oximetry O2 Sat by Pulse Oximetry [ Anterior Bilateral Throughout] Constitutional: no acute distress, other (morbidly obese female with mild ventilator dyssynchrony) Eyes: non-icteric, other (scleral erythema / bleeding is improving) ENT: oropharynx moist, oropharyngeal exudate pre (serosanguinous), other (ETT 25 cm BALJINDER) Neck: supple, no lymphadenopathy, no JVD, other (large circumference) Effort: mildly labored Ascultation: Bilateral: diminished breath sounds, rales Percussion: Bilateral: not dull Cardiovascular: regular rate and rhythm Gastrointestinal: normoactive bowel sounds, soft, non-tender, non-distended (protuberant) Integumentary: rash (now scaling / drying), other Extremities: no cyanosis, pulses normal, no ischemia or petechiae, edema (1+) Neurologic: pupils equal and round, CN II-XII normal, other (unasble to assess re: AMS) Psychiatric: other (unasble to assess) CBC and BMP: 04/14/21 04:43 04/14/21 04:43 ABG, PT/INR, D-dimer: ABG ABG pH 7.354 (7.320-7.450) 04/13/21 21:00 POC ABG pCO2 48.6 mmHg (32.0-48.0) H 04/13/21 21:00 ABG pCO2 68.6 mm Hg 04/13/21 03:52 POC ABG pO2 93.8 mmHg (83-108) 04/13/21 21:00 ABG pO2 98.9 mm Hg (80.0-90.0) H 04/13/21 03:52 POC ABG HCO3 26.5 04/13/21 21:00 ABG O2 Saturation 97.0 (0-100) 04/13/21 21:00 PT/INR, D-dimer PT 16.0 Sec. (12.2-14.9) H 04/13/21 04:44 INR 1.16 (0.87-1.13) H 04/13/21 04:44 D-Dimer 2696.79 ng/mlDDU (0-234) H 04/08/21 04:40 Abnormal lab findings: Abnormal Labs 03/13/21 03/13/21 03/13/21 13:26 13:26 15:40 WBC RBC Hgb Hct MCH 27 L MCHC RDW 17.0 H Plt Count Lymph % (Auto) [place] # (Auto) Eos # (Auto) Seg Neutrophils % Lymphocytes % (Manual) Eosinophils % (Manual) Basophils % (Manual) Nucleated RBC % Seg Neutrophils # Seg Neutrophils # Man Lymphocytes # (Manual) Monocytes # (Manual) Eosinophils # (Manual) Basophils # (Manual) Percent Retic PT INR Fibrinogen D-Dimer ABG pH POC ABG pCO2 POC ABG pO2 ABG pO2 ABG HCO3 ABG O2 Saturation ABG Base Excess ABG Hemoglobin ABG Oxyhemoglobin ABG Sodium ABG Potassium ABG Chloride ABG Glucose Oxyhemoglobin Carboxyhemoglobin Sodium 136 L Potassium Chloride Carbon Dioxide BUN Creatinine Glucose 125 H 130 H POC Glucose Hemoglobin A1c Calcium Phosphorus Magnesium AST ALT Alkaline Phosphatase Lactate Dehydrogenase 235 H C-Reactive Protein 4.30 H Total Protein Albumin Triglycerides Arterial Blood Glucose Arterial Blood Ionized Calcium Urine WBC (Auto) U Epithel Cells (Auto) Urine Creatinine Random Vancomycin Coronavirus (PCR) Crossmatch 03/13/21 03/14/21 03/14/21 21:33 03:35 06:21 WBC 20.0 H RBC Hgb Hct MCH 27 L MCHC RDW 17.5 H Plt Count Lymph % (Auto) 7.8 L [place] # (Auto) 1.3 H Eos # (Auto) Seg Neutrophils % 85.4 H Lymphocytes % (Manual) Eosinophils % (Manual) Basophils % (Manual) Nucleated RBC % Seg Neutrophils # 17.1 H Seg Neutrophils # Man Lymphocytes # (Manual) Monocytes # (Manual) Eosinophils # (Manual) Basophils # (Manual) Percent Retic PT INR Fibrinogen D-Dimer ABG pH 7.323 L 7.234 L POC ABG pCO2 POC ABG pO2 ABG pO2 69.8 L ABG HCO3 ABG O2 Saturation 92.9 L 94.9 L ABG Base Excess -3.3 L -5.4 L ABG Hemoglobin ABG Oxyhemoglobin ABG Sodium ABG Potassium ABG Chloride ABG Glucose Oxyhemoglobin 91.2 L 93.2 L Carboxyhemoglobin Sodium Potassium Chloride Carbon Dioxide BUN Creatinine Glucose POC Glucose Hemoglobin A1c Calcium Phosphorus Magnesium AST ALT Alkaline Phosphatase Lactate Dehydrogenase C-Reactive Protein Total Protein Albumin Triglycerides Arterial Blood Glucose Arterial Blood Ionized Calcium Urine WBC (Auto) U Epithel Cells (Auto) Urine Creatinine Random Vancomycin Coronavirus (PCR) Crossmatch 03/14/21 03/14/21 03/14/21 06:21 07:47 11:21 WBC RBC Hgb Hct MCH MCHC RDW Plt Count Lymph % (Auto) [place] # (Auto) Eos # (Auto) Seg Neutrophils % Lymphocytes % (Manual) Eosinophils % (Manual) Basophils % (Manual) Nucleated RBC % Seg Neutrophils # Seg Neutrophils # Man Lymphocytes # (Manual) Monocytes # (Manual) Eosinophils # (Manual) Basophils # (Manual) Percent Retic PT INR Fibrinogen D-Dimer ABG pH POC ABG pCO2 POC ABG pO2 ABG pO2 ABG HCO3 ABG O2 Saturation ABG Base Excess ABG Hemoglobin ABG Oxyhemoglobin ABG Sodium ABG Potassium ABG Chloride ABG Glucose Oxyhemoglobin Carboxyhemoglobin Sodium 136 L 136 L Potassium 6.2 H* D 5.4 H Chloride Carbon Dioxide 21 L 21 L BUN Creatinine 1.5 H D 1.8 H Glucose 144 H 141 H POC Glucose 147 H Hemoglobin A1c Calcium Phosphorus Magnesium AST ALT Alkaline Phosphatase Lactate Dehydrogenase C-Reactive Protein Total Protein 8.7 H 9.2 H Albumin 3.8 L Triglycerides Arterial Blood Glucose Arterial Blood Ionized Calcium Urine WBC (Auto) U Epithel Cells (Auto) Urine Creatinine Random Vancomycin Coronavirus (PCR) Crossmatch 03/14/21 03/14/21 03/14/21 17:29 17:50 18:35 WBC RBC Hgb Hct MCH MCHC RDW Plt Count Lymph % (Auto) [place] # (Auto) Eos # (Auto) Seg Neutrophils % Lymphocytes % (Manual) Eosinophils % (Manual) Basophils % (Manual) Nucleated RBC % Seg Neutrophils # Seg Neutrophils # Man Lymphocytes # (Manual) Monocytes # (Manual) Eosinophils # (Manual) Basophils # (Manual) Percent Retic PT INR Fibrinogen D-Dimer ABG pH POC ABG pCO2 POC ABG pO2 ABG pO2 ABG HCO3 ABG O2 Saturation ABG Base Excess ABG Hemoglobin ABG Oxyhemoglobin ABG Sodium ABG Potassium ABG Chloride ABG Glucose Oxyhemoglobin Carboxyhemoglobin Sodium 135 L Potassium 6.4 H* Chloride Carbon Dioxide 15 L BUN 26 H Creatinine 3.4 H D Glucose 165 H POC Glucose 209 H Hemoglobin A1c Calcium Phosphorus Magnesium AST ALT Alkaline Phosphatase Lactate Dehydrogenase C-Reactive Protein Total Protein Albumin Triglycerides Arterial Blood Glucose Arterial Blood Ionized Calcium Urine WBC (Auto) U Epithel Cells (Auto) Urine Creatinine 40.1 H Random Vancomycin Coronavirus (PCR) Crossmatch 03/14/21 03/14/21 03/14/21 18:46 22:23 23:52 WBC RBC Hgb Hct MCH MCHC RDW Plt Count Lymph % (Auto) [place] # (Auto) Eos # (Auto) Seg Neutrophils % Lymphocytes % (Manual) Eosinophils % (Manual) Basophils % (Manual) Nucleated RBC % Seg Neutrophils # Seg Neutrophils # Man Lymphocytes # (Manual) Monocytes # (Manual) Eosinophils # (Manual) Basophils # (Manual) Percent Retic PT INR Fibrinogen D-Dimer ABG pH 7.270 L POC ABG pCO2 POC ABG pO2 63.4 L ABG pO2 ABG HCO3 ABG O2 Saturation ABG Base Excess ABG Hemoglobin ABG Oxyhemoglobin 90.2 L ABG Sodium 134.9 L ABG Potassium 5.3 H ABG Chloride ABG Glucose 134 H Oxyhemoglobin Carboxyhemoglobin Sodium 136 L Potassium 5.2 H Chloride Carbon Dioxide 20 L BUN 29 H Creatinine 3.6 H Glucose 236 H POC Glucose 128 H Hemoglobin A1c Calcium Phosphorus Magnesium AST ALT Alkaline Phosphatase Lactate Dehydrogenase C-Reactive Protein Total Protein Albumin 3.2 L Triglycerides Arterial Blood Glucose 134 H Arterial Blood Ionized Calcium Urine WBC (Auto) U Epithel Cells (Auto) Urine Creatinine Random Vancomycin Coronavirus (PCR) Crossmatch 03/14/21 03/15/21 03/15/21 Unknown 05:00 05:09 WBC 22.5 H RBC Hgb Hct MCH 27 L MCHC RDW 17.6 H Plt Count Lymph % (Auto) [place] # (Auto) Eos # (Auto) Seg Neutrophils % Lymphocytes % (Manual) Eosinophils % (Manual) Basophils % (Manual) Nucleated RBC % Seg Neutrophils # Seg Neutrophils # Man Lymphocytes # (Manual) Monocytes # (Manual) Eosinophils # (Manual) Basophils # (Manual) Percent Retic PT INR Fibrinogen D-Dimer ABG pH POC ABG pCO2 POC ABG pO2 ABG pO2 ABG HCO3 ABG O2 Saturation ABG Base Excess ABG Hemoglobin ABG Oxyhemoglobin ABG Sodium ABG Potassium ABG Chloride ABG Glucose Oxyhemoglobin Carboxyhemoglobin Sodium Potassium Chloride Carbon Dioxide BUN Creatinine Glucose POC Glucose 116 H Hemoglobin A1c Calcium Phosphorus Magnesium AST ALT Alkaline Phosphatase Lactate Dehydrogenase C-Reactive Protein Total Protein Albumin Triglycerides Arterial Blood Glucose Arterial Blood Ionized Calcium Urine WBC (Auto) U Epithel Cells (Auto) Urine Creatinine Random Vancomycin Coronavirus (PCR) Positive A Crossmatch 03/15/21 03/15/21 03/15/21 05:09 05:09 05:09 WBC RBC Hgb Hct MCH MCHC RDW Plt Count Lymph % (Auto) [place] # (Auto) Eos # (Auto) Seg Neutrophils % Lymphocytes % (Manual) Eosinophils % (Manual) Basophils % (Manual) Nucleated RBC % Seg Neutrophils # Seg Neutrophils # Man Lymphocytes # (Manual) Monocytes # (Manual) Eosinophils # (Manual) Basophils # (Manual) Percent Retic PT INR Fibrinogen D-Dimer ABG pH POC ABG pCO2 POC ABG pO2 ABG pO2 ABG HCO3 ABG O2 Saturation ABG Base Excess ABG Hemoglobin ABG Oxyhemoglobin ABG Sodium ABG Potassium ABG Chloride ABG Glucose Oxyhemoglobin Carboxyhemoglobin Sodium 136 L Potassium 6.5 H* D Chloride Carbon Dioxide 17 L BUN 41 H Creatinine 5.3 H Glucose 128 H POC Glucose Hemoglobin A1c 6.3 H Calcium Phosphorus Magnesium AST ALT Alkaline Phosphatase Lactate Dehydrogenase C-Reactive Protein 12.10 H Total Protein Albumin 3.1 L Triglycerides Arterial Blood Glucose Arterial Blood Ionized Calcium Urine WBC (Auto) U Epithel Cells (Auto) Urine Creatinine Random Vancomycin Coronavirus (PCR) Crossmatch 03/15/21 03/15/21 03/15/21 10:00 21:50 23:39 WBC RBC Hgb Hct MCH MCHC RDW Plt Count Lymph % (Auto) [place] # (Auto) Eos # (Auto) Seg Neutrophils % Lymphocytes % (Manual) Eosinophils % (Manual) Basophils % (Manual) Nucleated RBC % Seg Neutrophils # Seg Neutrophils # Man Lymphocytes # (Manual) Monocytes # (Manual) Eosinophils # (Manual) Basophils # (Manual) Percent Retic PT INR Fibrinogen D-Dimer ABG pH 7.098 L POC ABG pCO2 72.7 H POC ABG pO2 ABG pO2 162.5 H ABG HCO3 ABG O2 Saturation ABG Base Excess ABG Hemoglobin 10.1 L ABG Oxyhemoglobin ABG Sodium ABG Potassium 5.7 H ABG Chloride ABG Glucose Oxyhemoglobin Carboxyhemoglobin 0.4 L Sodium Potassium Chloride Carbon Dioxide BUN Creatinine Glucose POC Glucose 156 H Hemoglobin A1c Calcium Phosphorus Magnesium AST ALT Alkaline Phosphatase Lactate Dehydrogenase C-Reactive Protein Total Protein Albumin Triglycerides Arterial Blood Glucose Arterial Blood Ionized Calcium Urine WBC (Auto) U Epithel Cells (Auto) Urine Creatinine Random Vancomycin Coronavirus (PCR) Crossmatch 03/16/21 03/16/21 03/16/21 05:00 05:30 05:30 WBC 16.7 H RBC 3.59 L Hgb 9.6 L Hct 30.1 L MCH 27 L MCHC RDW 17.5 H Plt Count Lymph % (Auto) [place] # (Auto) Eos # (Auto) Seg Neutrophils % Lymphocytes % (Manual) Eosinophils % (Manual) Basophils % (Manual) Nucleated RBC % Seg Neutrophils # Seg Neutrophils # Man Lymphocytes # (Manual) Monocytes # (Manual) Eosinophils # (Manual) Basophils # (Manual) Percent Retic PT INR Fibrinogen D-Dimer ABG pH POC ABG pCO2 POC ABG pO2 ABG pO2 ABG HCO3 ABG O2 Saturation ABG Base Excess ABG Hemoglobin ABG Oxyhemoglobin ABG Sodium ABG Potassium ABG Chloride ABG Glucose Oxyhemoglobin Carboxyhemoglobin Sodium Potassium Chloride Carbon Dioxide BUN 46 H Creatinine 6.2 H Glucose 131 H POC Glucose Hemoglobin A1c Calcium Phosphorus 6.00 H D Magnesium AST ALT Alkaline Phosphatase Lactate Dehydrogenase 318 H C-Reactive Protein 18.60 H Total Protein Albumin 3.0 L Triglycerides Arterial Blood Glucose Arterial Blood Ionized Calcium Urine WBC (Auto) U Epithel Cells (Auto) Urine Creatinine Random Vancomycin Coronavirus (PCR) Crossmatch 03/16/21 03/16/21 03/16/21 05:51 06:37 08:58 WBC RBC Hgb Hct MCH MCHC RDW Plt Count Lymph % (Auto) [place] # (Auto) Eos # (Auto) Seg Neutrophils % Lymphocytes % (Manual) Eosinophils % (Manual) Basophils % (Manual) Nucleated RBC % Seg Neutrophils # Seg Neutrophils # Man Lymphocytes # (Manual) Monocytes # (Manual) Eosinophils # (Manual) Basophils # (Manual) Percent Retic PT INR Fibrinogen D-Dimer 3041.12 H ABG pH POC ABG pCO2 POC ABG pO2 ABG pO2 141.5 H ABG HCO3 ABG O2 Saturation ABG Base Excess ABG Hemoglobin 9.7 L ABG Oxyhemoglobin ABG Sodium ABG Potassium ABG Chloride ABG Glucose Oxyhemoglobin Carboxyhemoglobin Sodium Potassium Chloride Carbon Dioxide BUN Creatinine Glucose POC Glucose 126 H Hemoglobin A1c Calcium Phosphorus Magnesium AST ALT Alkaline Phosphatase Lactate Dehydrogenase C-Reactive Protein Total Protein Albumin Triglycerides Arterial Blood Glucose Arterial Blood Ionized Calcium Urine WBC (Auto) U Epithel Cells (Auto) Urine Creatinine Random Vancomycin Coronavirus (PCR) Crossmatch 03/16/21 03/16/21 03/16/21 12:11 16:51 21:00 WBC RBC Hgb Hct MCH MCHC RDW Plt Count Lymph % (Auto) [place] # (Auto) Eos # (Auto) Seg Neutrophils % Lymphocytes % (Manual) Eosinophils % (Manual) Basophils % (Manual) Nucleated RBC % Seg Neutrophils # Seg Neutrophils # Man Lymphocytes # (Manual) Monocytes # (Manual) Eosinophils # (Manual) Basophils # (Manual) Percent Retic PT INR Fibrinogen D-Dimer ABG pH 7.239 L POC ABG pCO2 61.5 H POC ABG pO2 80.8 L ABG pO2 ABG HCO3 ABG O2 Saturation ABG Base Excess ABG Hemoglobin 11.4 L ABG Oxyhemoglobin 93.5 L ABG Sodium ABG Potassium 5.4 H ABG Chloride ABG Glucose 137 H Oxyhemoglobin Carboxyhemoglobin 0.2 L Sodium Potassium Chloride Carbon Dioxide BUN Creatinine Glucose POC Glucose 156 H 133 H Hemoglobin A1c Calcium Phosphorus Magnesium AST ALT Alkaline Phosphatase Lactate Dehydrogenase C-Reactive Protein Total Protein Albumin Triglycerides Arterial Blood Glucose 137 H Arterial Blood Ionized Calcium Urine WBC (Auto) U Epithel Cells (Auto) Urine Creatinine Random Vancomycin Coronavirus (PCR) Crossmatch 03/16/21 03/17/21 03/17/21 23:42 05:23 05:23 WBC 18.4 H RBC Hgb Hct MCH 27 L MCHC RDW 17.4 H Plt Count Lymph % (Auto) [place] # (Auto) Eos # (Auto) Seg Neutrophils % Lymphocytes % (Manual) Eosinophils % (Manual) Basophils % (Manual) Nucleated RBC % Seg Neutrophils # Seg Neutrophils # Man Lymphocytes # (Manual) Monocytes # (Manual) Eosinophils # (Manual) Basophils # (Manual) Percent Retic PT INR Fibrinogen D-Dimer ABG pH POC ABG pCO2 POC ABG pO2 ABG pO2 ABG HCO3 ABG O2 Saturation ABG Base Excess ABG Hemoglobin ABG Oxyhemoglobin ABG Sodium ABG Potassium ABG Chloride ABG Glucose Oxyhemoglobin Carboxyhemoglobin Sodium Potassium 5.2 H Chloride Carbon Dioxide 21 L BUN 79 H Creatinine 8.6 H Glucose 124 H POC Glucose 133 H Hemoglobin A1c Calcium Phosphorus Magnesium AST ALT Alkaline Phosphatase Lactate Dehydrogenase C-Reactive Protein Total Protein Albumin 3.2 L Triglycerides 285 H Arterial Blood Glucose Arterial Blood Ionized Calcium Urine WBC (Auto) U Epithel Cells (Auto) Urine Creatinine Random Vancomycin Coronavirus (PCR) Crossmatch 03/17/21 03/17/21 03/17/21 05:23 10:48 12:20 WBC RBC Hgb Hct MCH MCHC RDW Plt Count Lymph % (Auto) [place] # (Auto) Eos # (Auto) Seg Neutrophils % Lymphocytes % (Manual) Eosinophils % (Manual) Basophils % (Manual) Nucleated RBC % Seg Neutrophils # Seg Neutrophils # Man Lymphocytes # (Manual) Monocytes # (Manual) Eosinophils # (Manual) Basophils # (Manual) Percent Retic PT INR Fibrinogen D-Dimer ABG pH 7.294 L POC ABG pCO2 POC ABG pO2 ABG pO2 90.3 H ABG HCO3 ABG O2 Saturation ABG Base Excess ABG Hemoglobin 9.9 L ABG Oxyhemoglobin ABG Sodium ABG Potassium ABG Chloride ABG Glucose Oxyhemoglobin Carboxyhemoglobin Sodium Potassium 5.2 H Chloride Carbon Dioxide 21 L BUN 79 H Creatinine 8.4 H Glucose 125 H POC Glucose 171 H Hemoglobin A1c Calcium Phosphorus 9.90 H D Magnesium 2.40 H AST ALT Alkaline Phosphatase Lactate Dehydrogenase C-Reactive Protein Total Protein Albumin Triglycerides Arterial Blood Glucose Arterial Blood Ionized Calcium Urine WBC (Auto) U Epithel Cells (Auto) Urine Creatinine Random Vancomycin Coronavirus (PCR) Crossmatch 03/17/21 03/17/21 03/18/21 17:24 21:00 04:30 WBC RBC Hgb Hct MCH MCHC RDW Plt Count Lymph % (Auto) [place] # (Auto) Eos # (Auto) Seg Neutrophils % Lymphocytes % (Manual) Eosinophils % (Manual) Basophils % (Manual) Nucleated RBC % Seg Neutrophils # Seg Neutrophils # Man Lymphocytes # (Manual) Monocytes # (Manual) Eosinophils # (Manual) Basophils # (Manual) Percent Retic PT INR Fibrinogen D-Dimer 9953.09 H ABG pH 7.310 L POC ABG pCO2 54.5 H POC ABG pO2 62.3 L ABG pO2 ABG HCO3 ABG O2 Saturation ABG Base Excess ABG Hemoglobin 10.2 L ABG Oxyhemoglobin 88.6 L ABG Sodium ABG Potassium 4.7 H ABG Chloride ABG Glucose 99 H Oxyhemoglobin Carboxyhemoglobin 0.3 L Sodium Potassium Chloride Carbon Dioxide BUN Creatinine Glucose POC Glucose 121 H Hemoglobin A1c Calcium Phosphorus Magnesium AST ALT Alkaline Phosphatase Lactate Dehydrogenase C-Reactive Protein Total Protein Albumin Triglycerides Arterial Blood Glucose 99 H Arterial Blood Ionized Calcium 4.3 L Urine WBC (Auto) U Epithel Cells (Auto) Urine Creatinine Random Vancomycin Coronavirus (PCR) Crossmatch 03/18/21 03/18/21 03/18/21 04:30 04:30 11:34 WBC 12.8 H RBC 3.49 L Hgb 9.4 L Hct 29.3 L MCH 27 L MCHC RDW 17.4 H Plt Count Lymph % (Auto) [place] # (Auto) Eos # (Auto) Seg Neutrophils % Lymphocytes % (Manual) Eosinophils % (Manual) Basophils % (Manual) Nucleated RBC % Seg Neutrophils # Seg Neutrophils # Man Lymphocytes # (Manual) Monocytes # (Manual) Eosinophils # (Manual) Basophils # (Manual) Percent Retic PT INR Fibrinogen D-Dimer ABG pH POC ABG pCO2 POC ABG pO2 ABG pO2 ABG HCO3 ABG O2 Saturation ABG Base Excess ABG Hemoglobin ABG Oxyhemoglobin ABG Sodium ABG Potassium ABG Chloride ABG Glucose Oxyhemoglobin Carboxyhemoglobin Sodium Potassium Chloride Carbon Dioxide BUN 69 H Creatinine 7.3 H Glucose POC Glucose 114 H Hemoglobin A1c Calcium 8.2 L Phosphorus 7.60 H D Magnesium AST ALT Alkaline Phosphatase Lactate Dehydrogenase 477 H C-Reactive Protein 6.90 H Total Protein Albumin Triglycerides Arterial Blood Glucose Arterial Blood Ionized Calcium Urine WBC (Auto) U Epithel Cells (Auto) Urine Creatinine Random Vancomycin Coronavirus (PCR) Crossmatch 03/18/21 03/19/21 03/19/21 21:44 04:13 04:13 WBC 13.7 H RBC 3.32 L Hgb 9.0 L Hct 28.1 L MCH 27 L MCHC RDW 16.9 H Plt Count Lymph % (Auto) [place] # (Auto) Eos # (Auto) Seg Neutrophils % Lymphocytes % (Manual) Eosinophils % (Manual) Basophils % (Manual) Nucleated RBC % Seg Neutrophils # Seg Neutrophils # Man Lymphocytes # (Manual) Monocytes # (Manual) Eosinophils # (Manual) Basophils # (Manual) Percent Retic PT INR Fibrinogen D-Dimer ABG pH 7.290 L POC ABG pCO2 POC ABG pO2 ABG pO2 119.7 H ABG HCO3 28.0 H ABG O2 Saturation ABG Base Excess ABG Hemoglobin 9.6 L ABG Oxyhemoglobin ABG Sodium ABG Potassium ABG Chloride ABG Glucose Oxyhemoglobin Carboxyhemoglobin Sodium Potassium Chloride Carbon Dioxide BUN Creatinine Glucose POC Glucose Hemoglobin A1c Calcium Phosphorus Magnesium AST ALT Alkaline Phosphatase Lactate Dehydrogenase C-Reactive Protein Total Protein Albumin Triglycerides Arterial Blood Glucose Arterial Blood Ionized Calcium Urine WBC (Auto) U Epithel Cells (Auto) Urine Creatinine Random Vancomycin 43.5 H Coronavirus (PCR) Crossmatch 03/19/21 03/19/21 03/19/21 04:13 05:59 11:40 WBC RBC Hgb Hct MCH MCHC RDW Plt Count Lymph % (Auto) [place] # (Auto) Eos # (Auto) Seg Neutrophils % Lymphocytes % (Manual) Eosinophils % (Manual) Basophils % (Manual) Nucleated RBC % Seg Neutrophils # Seg Neutrophils # Man Lymphocytes # (Manual) Monocytes # (Manual) Eosinophils # (Manual) Basophils # (Manual) Percent Retic PT INR Fibrinogen D-Dimer ABG pH POC ABG pCO2 POC ABG pO2 ABG pO2 ABG HCO3 ABG O2 Saturation ABG Base Excess ABG Hemoglobin ABG Oxyhemoglobin ABG Sodium ABG Potassium ABG Chloride ABG Glucose Oxyhemoglobin Carboxyhemoglobin Sodium Potassium Chloride Carbon Dioxide BUN 55 H Creatinine 7.0 H Glucose POC Glucose 116 H 145 H Hemoglobin A1c Calcium 8.1 L Phosphorus 7.90 H Magnesium AST ALT Alkaline Phosphatase Lactate Dehydrogenase C-Reactive Protein Total Protein Albumin Triglycerides Arterial Blood Glucose Arterial Blood Ionized Calcium Urine WBC (Auto) U Epithel Cells (Auto) Urine Creatinine Random Vancomycin Coronavirus (PCR) Crossmatch 03/19/21 03/19/21 03/20/21 17:01 23:41 04:00 WBC 15.6 H RBC 3.55 L Hgb 9.6 L Hct MCH 27 L MCHC RDW 16.8 H Plt Count 139 L Lymph % (Auto) [place] # (Auto) Eos # (Auto) Seg Neutrophils % Lymphocytes % (Manual) Eosinophils % (Manual) Basophils % (Manual) Nucleated RBC % Seg Neutrophils # Seg Neutrophils # Man Lymphocytes # (Manual) Monocytes # (Manual) Eosinophils # (Manual) Basophils # (Manual) Percent Retic PT INR Fibrinogen D-Dimer ABG pH POC ABG pCO2 POC ABG pO2 ABG pO2 ABG HCO3 ABG O2 Saturation ABG Base Excess ABG Hemoglobin ABG Oxyhemoglobin ABG Sodium ABG Potassium ABG Chloride ABG Glucose Oxyhemoglobin Carboxyhemoglobin Sodium Potassium Chloride Carbon Dioxide BUN Creatinine Glucose POC Glucose 111 H 118 H Hemoglobin A1c Calcium Phosphorus Magnesium AST ALT Alkaline Phosphatase Lactate Dehydrogenase C-Reactive Protein Total Protein Albumin Triglycerides Arterial Blood Glucose Arterial Blood Ionized Calcium Urine WBC (Auto) U Epithel Cells (Auto) Urine Creatinine Random Vancomycin Coronavirus (PCR) Crossmatch 03/20/21 03/20/21 03/20/21 04:00 04:00 04:37 WBC RBC Hgb Hct MCH MCHC RDW Plt Count Lymph % (Auto) [place] # (Auto) Eos # (Auto) Seg Neutrophils % Lymphocytes % (Manual) Eosinophils % (Manual) Basophils % (Manual) Nucleated RBC % Seg Neutrophils # Seg Neutrophils # Man Lymphocytes # (Manual) Monocytes # (Manual) Eosinophils # (Manual) Basophils # (Manual) Percent Retic PT INR Fibrinogen D-Dimer > 27138 H ABG pH 7.306 L POC ABG pCO2 POC ABG pO2 ABG pO2 ABG HCO3 27.9 H ABG O2 Saturation ABG Base Excess ABG Hemoglobin 5.2 L ABG Oxyhemoglobin ABG Sodium ABG Potassium ABG Chloride ABG Glucose Oxyhemoglobin Carboxyhemoglobin Sodium Potassium 5.2 H Chloride 97.6 L Carbon Dioxide BUN 52 H Creatinine 6.2 H Glucose 104 H POC Glucose Hemoglobin A1c Calcium Phosphorus 8.60 H Magnesium AST ALT Alkaline Phosphatase Lactate Dehydrogenase C-Reactive Protein 6.90 H Total Protein Albumin Triglycerides Arterial Blood Glucose Arterial Blood Ionized Calcium Urine WBC (Auto) U Epithel Cells (Auto) Urine Creatinine Random Vancomycin Coronavirus (PCR) Crossmatch 03/20/21 03/20/21 03/20/21 13:50 17:46 17:56 WBC RBC Hgb Hct MCH MCHC RDW Plt Count Lymph % (Auto) [place] # (Auto) Eos # (Auto) Seg Neutrophils % Lymphocytes % (Manual) Eosinophils % (Manual) Basophils % (Manual) Nucleated RBC % Seg Neutrophils # Seg Neutrophils # Man Lymphocytes # (Manual) Monocytes # (Manual) Eosinophils # (Manual) Basophils # (Manual) Percent Retic PT INR Fibrinogen D-Dimer ABG pH POC ABG pCO2 POC ABG pO2 ABG pO2 ABG HCO3 ABG O2 Saturation ABG Base Excess ABG Hemoglobin ABG Oxyhemoglobin ABG Sodium ABG Potassium ABG Chloride ABG Glucose Oxyhemoglobin Carboxyhemoglobin Sodium Potassium Chloride Carbon Dioxide BUN 63 H 43 H Creatinine Glucose POC Glucose 145 H Hemoglobin A1c Calcium Phosphorus Magnesium AST ALT Alkaline Phosphatase Lactate Dehydrogenase C-Reactive Protein Total Protein Albumin Triglycerides Arterial Blood Glucose Arterial Blood Ionized Calcium Urine WBC (Auto) U Epithel Cells (Auto) Urine Creatinine Random Vancomycin Coronavirus (PCR) Crossmatch 03/20/21 03/21/21 03/21/21 23:18 06:58 06:58 WBC 14.4 H RBC 3.41 L Hgb 9.5 L Hct 28.6 L MCH MCHC RDW 17.4 H Plt Count 107 L Lymph % (Auto) [place] # (Auto) Eos # (Auto) Seg Neutrophils % Lymphocytes % (Manual) Eosinophils % (Manual) Basophils % (Manual) Nucleated RBC % Seg Neutrophils # Seg Neutrophils # Man Lymphocytes # (Manual) Monocytes # (Manual) Eosinophils # (Manual) Basophils # (Manual) Percent Retic PT INR Fibrinogen D-Dimer ABG pH POC ABG pCO2 POC ABG pO2 ABG pO2 ABG HCO3 ABG O2 Saturation ABG Base Excess ABG Hemoglobin ABG Oxyhemoglobin ABG Sodium ABG Potassium ABG Chloride ABG Glucose Oxyhemoglobin Carboxyhemoglobin Sodium Potassium Chloride Carbon Dioxide BUN 60 H Creatinine 7.7 H Glucose POC Glucose 106 H Hemoglobin A1c Calcium Phosphorus Magnesium AST ALT Alkaline Phosphatase Lactate Dehydrogenase C-Reactive Protein Total Protein Albumin Triglycerides Arterial Blood Glucose Arterial Blood Ionized Calcium Urine WBC (Auto) U Epithel Cells (Auto) Urine Creatinine Random Vancomycin Coronavirus (PCR) Crossmatch 03/21/21 03/21/21 03/21/21 11:11 18:04 Unknown WBC RBC Hgb Hct MCH MCHC RDW Plt Count Lymph % (Auto) [place] # (Auto) Eos # (Auto) Seg Neutrophils % Lymphocytes % (Manual) Eosinophils % (Manual) Basophils % (Manual) Nucleated RBC % Seg Neutrophils # Seg Neutrophils # Man Lymphocytes # (Manual) Monocytes # (Manual) Eosinophils # (Manual) Basophils # (Manual) Percent Retic PT INR Fibrinogen D-Dimer ABG pH 7.270 L POC ABG pCO2 58.7 H POC ABG pO2 76.9 L ABG pO2 ABG HCO3 ABG O2 Saturation ABG Base Excess ABG Hemoglobin 9.9 L ABG Oxyhemoglobin 92.4 L ABG Sodium 135.8 L ABG Potassium 4.6 H ABG Chloride ABG Glucose Oxyhemoglobin Carboxyhemoglobin 0.1 L Sodium Potassium Chloride Carbon Dioxide BUN Creatinine Glucose POC Glucose 109 H 141 H Hemoglobin A1c Calcium Phosphorus Magnesium AST ALT Alkaline Phosphatase Lactate Dehydrogenase C-Reactive Protein Total Protein Albumin Triglycerides Arterial Blood Glucose Arterial Blood Ionized Calcium 4.5 L Urine WBC (Auto) U Epithel Cells (Auto) Urine Creatinine Random Vancomycin Coronavirus (PCR) Crossmatch 03/22/21 03/22/21 03/22/21 03:09 07:10 10:00 WBC RBC Hgb Hct MCH MCHC RDW Plt Count Lymph % (Auto) [place] # (Auto) Eos # (Auto) Seg Neutrophils % Lymphocytes % (Manual) Eosinophils % (Manual) Basophils % (Manual) Nucleated RBC % Seg Neutrophils # Seg Neutrophils # Man Lymphocytes # (Manual) Monocytes # (Manual) Eosinophils # (Manual) Basophils # (Manual) Percent Retic PT INR Fibrinogen D-Dimer ABG pH 7.206 L 7.245 L POC ABG pCO2 55.6 H POC ABG pO2 ABG pO2 90.6 H ABG HCO3 ABG O2 Saturation ABG Base Excess -4.4 L ABG Hemoglobin 9.0 L 8.4 L ABG Oxyhemoglobin ABG Sodium 123.4 L ABG Potassium 5.6 H ABG Chloride ABG Glucose 106 H Oxyhemoglobin 94.5 L Carboxyhemoglobin 0.1 L Sodium Potassium 5.4 H Chloride 96.8 L Carbon Dioxide BUN 89 H Creatinine 8.7 H Glucose 131 H POC Glucose Hemoglobin A1c Calcium Phosphorus Magnesium AST ALT Alkaline Phosphatase Lactate Dehydrogenase C-Reactive Protein 9.40 H Total Protein Albumin Triglycerides Arterial Blood Glucose 106 H Arterial Blood Ionized Calcium Urine WBC (Auto) U Epithel Cells (Auto) Urine Creatinine Random Vancomycin Coronavirus (PCR) Crossmatch 03/22/21 03/22/21 03/22/21 10:00 12:37 13:19 WBC RBC 3.05 L Hgb 8.4 L Hct 25.5 L MCH MCHC RDW 17.5 H Plt Count 108 L Lymph % (Auto) [place] # (Auto) Eos # (Auto) Seg Neutrophils % Lymphocytes % (Manual) Eosinophils % (Manual) Basophils % (Manual) Nucleated RBC % Seg Neutrophils # Seg Neutrophils # Man Lymphocytes # (Manual) Monocytes # (Manual) Eosinophils # (Manual) Basophils # (Manual) Percent Retic PT INR Fibrinogen D-Dimer ABG pH POC ABG pCO2 POC ABG pO2 ABG pO2 ABG HCO3 ABG O2 Saturation ABG Base Excess ABG Hemoglobin ABG Oxyhemoglobin ABG Sodium ABG Potassium ABG Chloride ABG Glucose Oxyhemoglobin Carboxyhemoglobin Sodium Potassium Chloride Carbon Dioxide BUN Creatinine 8.7 H Glucose POC Glucose 140 H Hemoglobin A1c Calcium Phosphorus Magnesium AST ALT Alkaline Phosphatase Lactate Dehydrogenase C-Reactive Protein Total Protein Albumin Triglycerides Arterial Blood Glucose Arterial Blood Ionized Calcium Urine WBC (Auto) U Epithel Cells (Auto) Urine Creatinine Random Vancomycin Coronavirus (PCR) Crossmatch 03/22/21 03/22/21 03/22/21 13:40 17:14 18:21 WBC RBC Hgb Hct MCH MCHC RDW Plt Count Lymph % (Auto) [place] # (Auto) Eos # (Auto) Seg Neutrophils % Lymphocytes % (Manual) Eosinophils % (Manual) Basophils % (Manual) Nucleated RBC % Seg Neutrophils # Seg Neutrophils # Man Lymphocytes # (Manual) Monocytes # (Manual) Eosinophils # (Manual) Basophils # (Manual) Percent Retic PT 15.8 H INR 1.14 H Fibrinogen D-Dimer > 97007 H ABG pH POC ABG pCO2 POC ABG pO2 ABG pO2 ABG HCO3 ABG O2 Saturation ABG Base Excess ABG Hemoglobin ABG Oxyhemoglobin ABG Sodium ABG Potassium ABG Chloride ABG Glucose Oxyhemoglobin Carboxyhemoglobin Sodium Potassium Chloride Carbon Dioxide BUN Creatinine Glucose POC Glucose 117 H 112 H Hemoglobin A1c Calcium Phosphorus Magnesium AST ALT Alkaline Phosphatase Lactate Dehydrogenase C-Reactive Protein Total Protein Albumin Triglycerides Arterial Blood Glucose Arterial Blood Ionized Calcium Urine WBC (Auto) U Epithel Cells (Auto) Urine Creatinine Random Vancomycin Coronavirus (PCR) Crossmatch 03/22/21 03/22/21 03/23/21 21:25 22:57 04:30 WBC RBC Hgb Hct MCH MCHC RDW Plt Count Lymph % (Auto) [place] # (Auto) Eos # (Auto) Seg Neutrophils % Lymphocytes % (Manual) Eosinophils % (Manual) Basophils % (Manual) Nucleated RBC % Seg Neutrophils # Seg Neutrophils # Man Lymphocytes # (Manual) Monocytes # (Manual) Eosinophils # (Manual) Basophils # (Manual) Percent Retic PT INR Fibrinogen D-Dimer ABG pH 7.188 L* POC ABG pCO2 POC ABG pO2 ABG pO2 97.9 H ABG HCO3 ABG O2 Saturation ABG Base Excess -3.7 L ABG Hemoglobin 9.2 L ABG Oxyhemoglobin ABG Sodium ABG Potassium ABG Chloride ABG Glucose Oxyhemoglobin 94.4 L Carboxyhemoglobin Sodium Potassium Chloride Carbon Dioxide BUN Creatinine Glucose POC Glucose 106 H Hemoglobin A1c Calcium Phosphorus Magnesium AST ALT Alkaline Phosphatase Lactate Dehydrogenase C-Reactive Protein Total Protein Albumin Triglycerides 381 H Arterial Blood Glucose Arterial Blood Ionized Calcium Urine WBC (Auto) U Epithel Cells (Auto) Urine Creatinine Random Vancomycin Coronavirus (PCR) Crossmatch 03/23/21 03/23/21 03/23/21 04:30 04:30 05:37 WBC 20.1 H RBC 3.17 L Hgb 8.6 L Hct 27.2 L MCH 27 L MCHC RDW 17.4 H Plt Count 118 L Lymph % (Auto) [place] # (Auto) Eos # (Auto) Seg Neutrophils % Lymphocytes % (Manual) Eosinophils % (Manual) Basophils % (Manual) Nucleated RBC % Seg Neutrophils # Seg Neutrophils # Man Lymphocytes # (Manual) Monocytes # (Manual) Eosinophils # (Manual) Basophils # (Manual) Percent Retic PT INR Fibrinogen D-Dimer ABG pH POC ABG pCO2 POC ABG pO2 ABG pO2 ABG HCO3 ABG O2 Saturation ABG Base Excess ABG Hemoglobin ABG Oxyhemoglobin ABG Sodium ABG Potassium ABG Chloride ABG Glucose Oxyhemoglobin Carboxyhemoglobin Sodium Potassium 5.2 H Chloride 97.1 L Carbon Dioxide 21 L BUN 82 H Creatinine 9.1 H Glucose 109 H POC Glucose 130 H Hemoglobin A1c Calcium Phosphorus 10.80 H Magnesium 3.50 H AST ALT Alkaline Phosphatase Lactate Dehydrogenase C-Reactive Protein Total Protein Albumin Triglycerides Arterial Blood Glucose Arterial Blood Ionized Calcium Urine WBC (Auto) U Epithel Cells (Auto) Urine Creatinine Random Vancomycin Coronavirus (PCR) Crossmatch 03/23/21 03/23/21 03/23/21 08:44 11:30 16:09 WBC RBC Hgb Hct MCH MCHC RDW Plt Count Lymph % (Auto) [place] # (Auto) Eos # (Auto) Seg Neutrophils % Lymphocytes % (Manual) Eosinophils % (Manual) Basophils % (Manual) Nucleated RBC % Seg Neutrophils # Seg Neutrophils # Man Lymphocytes # (Manual) Monocytes # (Manual) Eosinophils # (Manual) Basophils # (Manual) Percent Retic PT INR Fibrinogen D-Dimer ABG pH 7.190 L POC ABG pCO2 57.9 H POC ABG pO2 79.2 L ABG pO2 ABG HCO3 ABG O2 Saturation ABG Base Excess ABG Hemoglobin 11.8 L ABG Oxyhemoglobin 92.3 L ABG Sodium 131.0 L ABG Potassium 5.0 H ABG Chloride ABG Glucose 122 H Oxyhemoglobin Carboxyhemoglobin 0.4 L Sodium Potassium Chloride Carbon Dioxide BUN Creatinine Glucose POC Glucose 129 H 148 H Hemoglobin A1c Calcium Phosphorus Magnesium AST ALT Alkaline Phosphatase Lactate Dehydrogenase C-Reactive Protein Total Protein Albumin Triglycerides Arterial Blood Glucose 122 H Arterial Blood Ionized Calcium 4.4 L Urine WBC (Auto) U Epithel Cells (Auto) Urine Creatinine Random Vancomycin Coronavirus (PCR) Crossmatch 03/23/21 03/24/21 03/24/21 21:00 03:35 04:00 WBC 17.8 H RBC 2.96 L Hgb 8.1 L Hct 25.0 L MCH 27 L MCHC RDW 17.7 H Plt Count 124 L Lymph % (Auto) [place] # (Auto) Eos # (Auto) Seg Neutrophils % Lymphocytes % (Manual) Eosinophils % (Manual) Basophils % (Manual) Nucleated RBC % Seg Neutrophils # Seg Neutrophils # Man Lymphocytes # (Manual) Monocytes # (Manual) Eosinophils # (Manual) Basophils # (Manual) Percent Retic PT INR Fibrinogen D-Dimer ABG pH 7.223 L POC ABG pCO2 50.3 H POC ABG pO2 114.4 H ABG pO2 ABG HCO3 ABG O2 Saturation ABG Base Excess ABG Hemoglobin 8.8 L ABG Oxyhemoglobin ABG Sodium 130.4 L ABG Potassium 5.1 H ABG Chloride ABG Glucose 126 H Oxyhemoglobin Carboxyhemoglobin 0.2 L Sodium Potassium Chloride Carbon Dioxide BUN Creatinine Glucose POC Glucose 148 H Hemoglobin A1c Calcium Phosphorus Magnesium AST ALT Alkaline Phosphatase Lactate Dehydrogenase C-Reactive Protein Total Protein Albumin Triglycerides Arterial Blood Glucose 126 H Arterial Blood Ionized Calcium 4.4 L Urine WBC (Auto) U Epithel Cells (Auto) Urine Creatinine Random Vancomycin Coronavirus (PCR) Crossmatch 03/24/21 03/24/21 03/24/21 04:00 06:49 12:29 WBC RBC Hgb Hct MCH MCHC RDW Plt Count Lymph % (Auto) [place] # (Auto) Eos # (Auto) Seg Neutrophils % Lymphocytes % (Manual) Eosinophils % (Manual) Basophils % (Manual) Nucleated RBC % Seg Neutrophils # Seg Neutrophils # Man Lymphocytes # (Manual) Monocytes # (Manual) Eosinophils # (Manual) Basophils # (Manual) Percent Retic PT INR Fibrinogen D-Dimer ABG pH POC ABG pCO2 POC ABG pO2 ABG pO2 ABG HCO3 ABG O2 Saturation ABG Base Excess ABG Hemoglobin ABG Oxyhemoglobin ABG Sodium ABG Potassium ABG Chloride ABG Glucose Oxyhemoglobin Carboxyhemoglobin Sodium Potassium Chloride 95.6 L Carbon Dioxide 20 L BUN 108 H Creatinine 10.8 H Glucose 155 H POC Glucose 136 H 142 H Hemoglobin A1c Calcium Phosphorus Magnesium AST ALT Alkaline Phosphatase Lactate Dehydrogenase C-Reactive Protein Total Protein Albumin Triglycerides Arterial Blood Glucose Arterial Blood Ionized Calcium Urine WBC (Auto) U Epithel Cells (Auto) Urine Creatinine Random Vancomycin Coronavirus (PCR) Crossmatch 03/24/21 03/25/21 03/25/21 21:35 00:15 05:51 WBC RBC Hgb Hct MCH MCHC RDW Plt Count Lymph % (Auto) [place] # (Auto) Eos # (Auto) Seg Neutrophils % Lymphocytes % (Manual) Eosinophils % (Manual) Basophils % (Manual) Nucleated RBC % Seg Neutrophils # Seg Neutrophils # Man Lymphocytes # (Manual) Monocytes # (Manual) Eosinophils # (Manual) Basophils # (Manual) Percent Retic PT INR Fibrinogen D-Dimer ABG pH 7.241 L POC ABG pCO2 POC ABG pO2 ABG pO2 72.4 L ABG HCO3 ABG O2 Saturation 90.3 L ABG Base Excess ABG Hemoglobin 7.9 L ABG Oxyhemoglobin ABG Sodium ABG Potassium ABG Chloride ABG Glucose Oxyhemoglobin 88.4 L Carboxyhemoglobin Sodium Potassium Chloride Carbon Dioxide BUN Creatinine Glucose POC Glucose 110 H 121 H Hemoglobin A1c Calcium Phosphorus Magnesium AST ALT Alkaline Phosphatase Lactate Dehydrogenase C-Reactive Protein Total Protein Albumin Triglycerides Arterial Blood Glucose Arterial Blood Ionized Calcium Urine WBC (Auto) U Epithel Cells (Auto) Urine Creatinine Random Vancomycin Coronavirus (PCR) Crossmatch 03/25/21 03/25/21 03/25/21 05:54 05:54 12:21 WBC 12.4 H RBC 2.52 L Hgb 6.9 L Hct 21.1 L MCH MCHC RDW 17.4 H Plt Count 102 L Lymph % (Auto) [place] # (Auto) Eos # (Auto) Seg Neutrophils % Lymphocytes % (Manual) Eosinophils % (Manual) Basophils % (Manual) Nucleated RBC % Seg Neutrophils # Seg Neutrophils # Man Lymphocytes # (Manual) Monocytes # (Manual) Eosinophils # (Manual) Basophils # (Manual) Percent Retic PT INR Fibrinogen D-Dimer ABG pH POC ABG pCO2 POC ABG pO2 ABG pO2 ABG HCO3 ABG O2 Saturation ABG Base Excess ABG Hemoglobin ABG Oxyhemoglobin ABG Sodium ABG Potassium ABG Chloride ABG Glucose Oxyhemoglobin Carboxyhemoglobin Sodium Potassium Chloride 96.7 L Carbon Dioxide BUN 81 H Creatinine 8.1 H Glucose 116 H POC Glucose 138 H Hemoglobin A1c Calcium 8.2 L Phosphorus Magnesium AST ALT Alkaline Phosphatase Lactate Dehydrogenase C-Reactive Protein Total Protein Albumin Triglycerides Arterial Blood Glucose Arterial Blood Ionized Calcium Urine WBC (Auto) U Epithel Cells (Auto) Urine Creatinine Random Vancomycin Coronavirus (PCR) Crossmatch 03/25/21 03/25/21 03/25/21 13:45 17:32 21:30 WBC RBC Hgb Hct MCH MCHC RDW Plt Count Lymph % (Auto) [place] # (Auto) Eos # (Auto) Seg Neutrophils % Lymphocytes % (Manual) Eosinophils % (Manual) Basophils % (Manual) Nucleated RBC % Seg Neutrophils # Seg Neutrophils # Man Lymphocytes # (Manual) Monocytes # (Manual) Eosinophils # (Manual) Basophils # (Manual) Percent Retic PT INR Fibrinogen D-Dimer ABG pH POC ABG pCO2 POC ABG pO2 ABG pO2 70.2 L ABG HCO3 ABG O2 Saturation ABG Base Excess ABG Hemoglobin 6.8 L ABG Oxyhemoglobin ABG Sodium ABG Potassium ABG Chloride ABG Glucose Oxyhemoglobin 94.5 L Carboxyhemoglobin Sodium Potassium Chloride Carbon Dioxide BUN Creatinine Glucose POC Glucose 110 H Hemoglobin A1c Calcium Phosphorus Magnesium AST ALT Alkaline Phosphatase Lactate Dehydrogenase C-Reactive Protein Total Protein Albumin Triglycerides Arterial Blood Glucose Arterial Blood Ionized Calcium Urine WBC (Auto) U Epithel Cells (Auto) Urine Creatinine Random Vancomycin Coronavirus (PCR) Crossmatch See Detail 03/25/21 03/25/21 03/26/21 23:29 Unknown 05:15 WBC 12.4 H 14.0 H RBC 2.49 L 2.83 L Hgb 6.8 L 7.6 L Hct 20.9 L 23.6 L MCH 27 L 27 L MCHC RDW 18.0 H 17.1 H Plt Count 107 L 116 L Lymph % (Auto) [place] # (Auto) Eos # (Auto) Seg Neutrophils % Lymphocytes % (Manual) Eosinophils % (Manual) Basophils % (Manual) Nucleated RBC % Seg Neutrophils # Seg Neutrophils # Man Lymphocytes # (Manual) Monocytes # (Manual) Eosinophils # (Manual) Basophils # (Manual) Percent Retic PT INR Fibrinogen D-Dimer ABG pH POC ABG pCO2 POC ABG pO2 ABG pO2 ABG HCO3 ABG O2 Saturation ABG Base Excess ABG Hemoglobin ABG Oxyhemoglobin ABG Sodium ABG Potassium ABG Chloride ABG Glucose Oxyhemoglobin Carboxyhemoglobin Sodium Potassium Chloride Carbon Dioxide BUN Creatinine Glucose POC Glucose 113 H Hemoglobin A1c Calcium Phosphorus Magnesium AST ALT Alkaline Phosphatase Lactate Dehydrogenase C-Reactive Protein Total Protein Albumin Triglycerides Arterial Blood Glucose Arterial Blood Ionized Calcium Urine WBC (Auto) U Epithel Cells (Auto) Urine Creatinine Random Vancomycin Coronavirus (PCR) Crossmatch 03/26/21 03/26/21 03/26/21 05:15 05:35 09:50 WBC RBC Hgb Hct MCH MCHC RDW Plt Count Lymph % (Auto) [place] # (Auto) Eos # (Auto) Seg Neutrophils % Lymphocytes % (Manual) Eosinophils % (Manual) Basophils % (Manual) Nucleated RBC % Seg Neutrophils # Seg Neutrophils # Man Lymphocytes # (Manual) Monocytes # (Manual) Eosinophils # (Manual) Basophils # (Manual) Percent Retic PT INR Fibrinogen D-Dimer ABG pH POC ABG pCO2 POC ABG pO2 ABG pO2 79.9 L ABG HCO3 ABG O2 Saturation ABG Base Excess ABG Hemoglobin 7.1 L ABG Oxyhemoglobin ABG Sodium ABG Potassium ABG Chloride ABG Glucose Oxyhemoglobin 94.9 L Carboxyhemoglobin Sodium Potassium 3.4 L Chloride Carbon Dioxide BUN 70 H Creatinine 7.3 H Glucose 142 H POC Glucose 130 H Hemoglobin A1c Calcium 8.2 L Phosphorus Magnesium AST ALT Alkaline Phosphatase Lactate Dehydrogenase C-Reactive Protein Total Protein Albumin Triglycerides 254 H Arterial Blood Glucose Arterial Blood Ionized Calcium Urine WBC (Auto) U Epithel Cells (Auto) Urine Creatinine Random Vancomycin Coronavirus (PCR) Crossmatch 03/26/21 03/26/21 03/26/21 11:45 16:36 23:33 WBC RBC Hgb Hct MCH MCHC RDW Plt Count Lymph % (Auto) [place] # (Auto) Eos # (Auto) Seg Neutrophils % Lymphocytes % (Manual) Eosinophils % (Manual) Basophils % (Manual) Nucleated RBC % Seg Neutrophils # Seg Neutrophils # Man Lymphocytes # (Manual) Monocytes # (Manual) Eosinophils # (Manual) Basophils # (Manual) Percent Retic PT INR Fibrinogen D-Dimer ABG pH POC ABG pCO2 POC ABG pO2 ABG pO2 ABG HCO3 ABG O2 Saturation ABG Base Excess ABG Hemoglobin ABG Oxyhemoglobin ABG Sodium ABG Potassium ABG Chloride ABG Glucose Oxyhemoglobin Carboxyhemoglobin Sodium Potassium Chloride Carbon Dioxide BUN Creatinine Glucose POC Glucose 123 H 121 H 120 H Hemoglobin A1c Calcium Phosphorus Magnesium AST ALT Alkaline Phosphatase Lactate Dehydrogenase C-Reactive Protein Total Protein Albumin Triglycerides Arterial Blood Glucose Arterial Blood Ionized Calcium Urine WBC (Auto) U Epithel Cells (Auto) Urine Creatinine Random Vancomycin Coronavirus (PCR) Crossmatch 03/27/21 03/27/21 03/27/21 03:20 04:14 08:20 WBC 13.2 H RBC 2.82 L Hgb 7.9 L Hct 23.5 L MCH MCHC RDW 17.3 H Plt Count 125 L Lymph % (Auto) [place] # (Auto) Eos # (Auto) Seg Neutrophils % Lymphocytes % (Manual) Eosinophils % (Manual) Basophils % (Manual) Nucleated RBC % Seg Neutrophils # Seg Neutrophils # Man Lymphocytes # (Manual) Monocytes # (Manual) Eosinophils # (Manual) Basophils # (Manual) Percent Retic PT INR Fibrinogen D-Dimer ABG pH POC ABG pCO2 50.0 H POC ABG pO2 58.3 L ABG pO2 ABG HCO3 ABG O2 Saturation ABG Base Excess ABG Hemoglobin 11.3 L ABG Oxyhemoglobin 88.5 L ABG Sodium ABG Potassium ABG Chloride ABG Glucose 132 H Oxyhemoglobin Carboxyhemoglobin 0.2 L Sodium Potassium Chloride Carbon Dioxide BUN Creatinine Glucose POC Glucose 119 H Hemoglobin A1c Calcium Phosphorus Magnesium AST ALT Alkaline Phosphatase Lactate Dehydrogenase C-Reactive Protein Total Protein Albumin Triglycerides Arterial Blood Glucose 132 H Arterial Blood Ionized Calcium Urine WBC (Auto) U Epithel Cells (Auto) Urine Creatinine Random Vancomycin Coronavirus (PCR) Crossmatch 03/27/21 03/27/21 03/27/21 08:20 11:39 17:32 WBC RBC Hgb Hct MCH MCHC RDW Plt Count Lymph % (Auto) [place] # (Auto) Eos # (Auto) Seg Neutrophils % Lymphocytes % (Manual) Eosinophils % (Manual) Basophils % (Manual) Nucleated RBC % Seg Neutrophils # Seg Neutrophils # Man Lymphocytes # (Manual) Monocytes # (Manual) Eosinophils # (Manual) Basophils # (Manual) Percent Retic PT INR Fibrinogen D-Dimer ABG pH POC ABG pCO2 POC ABG pO2 ABG pO2 ABG HCO3 ABG O2 Saturation ABG Base Excess ABG Hemoglobin ABG Oxyhemoglobin ABG Sodium ABG Potassium ABG Chloride ABG Glucose Oxyhemoglobin Carboxyhemoglobin Sodium Potassium Chloride Carbon Dioxide BUN 57 H Creatinine 6.8 H Glucose 131 H POC Glucose 121 H 126 H Hemoglobin A1c Calcium Phosphorus Magnesium AST ALT Alkaline Phosphatase Lactate Dehydrogenase C-Reactive Protein Total Protein Albumin Triglycerides Arterial Blood Glucose Arterial Blood Ionized Calcium Urine WBC (Auto) U Epithel Cells (Auto) Urine Creatinine Random Vancomycin Coronavirus (PCR) Crossmatch 03/28/21 03/28/21 03/28/21 00:10 04:45 05:25 WBC RBC Hgb Hct MCH MCHC RDW Plt Count Lymph % (Auto) [place] # (Auto) Eos # (Auto) Seg Neutrophils % Lymphocytes % (Manual) Eosinophils % (Manual) Basophils % (Manual) Nucleated RBC % Seg Neutrophils # Seg Neutrophils # Man Lymphocytes # (Manual) Monocytes # (Manual) Eosinophils # (Manual) Basophils # (Manual) Percent Retic PT INR Fibrinogen D-Dimer ABG pH POC ABG pCO2 POC ABG pO2 ABG pO2 57.6 L ABG HCO3 27.1 H ABG O2 Saturation 88.5 L ABG Base Excess ABG Hemoglobin ABG Oxyhemoglobin ABG Sodium ABG Potassium ABG Chloride ABG Glucose Oxyhemoglobin 86.6 L Carboxyhemoglobin Sodium Potassium Chloride Carbon Dioxide BUN Creatinine Glucose POC Glucose 113 H 121 H Hemoglobin A1c Calcium Phosphorus Magnesium AST ALT Alkaline Phosphatase Lactate Dehydrogenase C-Reactive Protein Total Protein Albumin Triglycerides Arterial Blood Glucose Arterial Blood Ionized Calcium Urine WBC (Auto) U Epithel Cells (Auto) Urine Creatinine Random Vancomycin Coronavirus (PCR) Crossmatch 03/28/21 03/28/21 03/28/21 09:37 09:37 11:48 WBC 16.3 H RBC 2.92 L Hgb 8.2 L Hct 24.8 L MCH MCHC RDW 17.5 H Plt Count Lymph % (Auto) 10.7 L [place] # (Auto) 0.9 H Eos # (Auto) 0.6 H Seg Neutrophils % 80.0 H Lymphocytes % (Manual) Eosinophils % (Manual) Basophils % (Manual) Nucleated RBC % Seg Neutrophils # 13.0 H Seg Neutrophils # Man Lymphocytes # (Manual) Monocytes # (Manual) Eosinophils # (Manual) Basophils # (Manual) Percent Retic PT INR Fibrinogen D-Dimer ABG pH POC ABG pCO2 POC ABG pO2 ABG pO2 ABG HCO3 ABG O2 Saturation ABG Base Excess ABG Hemoglobin ABG Oxyhemoglobin ABG Sodium ABG Potassium ABG Chloride ABG Glucose Oxyhemoglobin Carboxyhemoglobin Sodium Potassium Chloride Carbon Dioxide BUN 61 H Creatinine 7.7 H Glucose 148 H POC Glucose 123 H Hemoglobin A1c Calcium Phosphorus Magnesium AST ALT Alkaline Phosphatase Lactate Dehydrogenase C-Reactive Protein Total Protein Albumin Triglycerides Arterial Blood Glucose Arterial Blood Ionized Calcium Urine WBC (Auto) U Epithel Cells (Auto) Urine Creatinine Random Vancomycin Coronavirus (PCR) Crossmatch 03/28/21 03/28/21 03/28/21 17:33 21:08 23:38 WBC RBC Hgb Hct MCH MCHC RDW Plt Count Lymph % (Auto) [place] # (Auto) Eos # (Auto) Seg Neutrophils % Lymphocytes % (Manual) Eosinophils % (Manual) Basophils % (Manual) Nucleated RBC % Seg Neutrophils # Seg Neutrophils # Man Lymphocytes # (Manual) Monocytes # (Manual) Eosinophils # (Manual) Basophils # (Manual) Percent Retic PT INR Fibrinogen D-Dimer ABG pH POC ABG pCO2 POC ABG pO2 80.5 L ABG pO2 ABG HCO3 ABG O2 Saturation ABG Base Excess ABG Hemoglobin 9.5 L ABG Oxyhemoglobin ABG Sodium 133.3 L ABG Potassium ABG Chloride ABG Glucose 134 H Oxyhemoglobin Carboxyhemoglobin 0.3 L Sodium Potassium Chloride Carbon Dioxide BUN Creatinine Glucose POC Glucose 128 H 112 H Hemoglobin A1c Calcium Phosphorus Magnesium AST ALT Alkaline Phosphatase Lactate Dehydrogenase C-Reactive Protein Total Protein Albumin Triglycerides Arterial Blood Glucose 134 H Arterial Blood Ionized Calcium Urine WBC (Auto) U Epithel Cells (Auto) Urine Creatinine Random Vancomycin Coronavirus (PCR) Crossmatch 03/29/21 03/29/21 03/29/21 04:45 04:45 04:45 WBC 17.5 H RBC 3.15 L Hgb 8.8 L Hct 27.2 L MCH MCHC RDW 17.9 H Plt Count 132 L Lymph % (Auto) [place] # (Auto) Eos # (Auto) Seg Neutrophils % Lymphocytes % (Manual) Eosinophils % (Manual) Basophils % (Manual) Nucleated RBC % Seg Neutrophils # Seg Neutrophils # Man Lymphocytes # (Manual) Monocytes # (Manual) Eosinophils # (Manual) Basophils # (Manual) Percent Retic PT INR Fibrinogen D-Dimer ABG pH POC ABG pCO2 POC ABG pO2 ABG pO2 ABG HCO3 ABG O2 Saturation ABG Base Excess ABG Hemoglobin ABG Oxyhemoglobin ABG Sodium ABG Potassium ABG Chloride ABG Glucose Oxyhemoglobin Carboxyhemoglobin Sodium Potassium Chloride 97.7 L Carbon Dioxide 21 L BUN 78 H Creatinine 9.5 H Glucose 132 H POC Glucose Hemoglobin A1c Calcium Phosphorus Magnesium AST ALT Alkaline Phosphatase Lactate Dehydrogenase C-Reactive Protein Total Protein Albumin 2.2 L Triglycerides 385 H Arterial Blood Glucose Arterial Blood Ionized Calcium Urine WBC (Auto) U Epithel Cells (Auto) Urine Creatinine Random Vancomycin Coronavirus (PCR) Crossmatch 03/29/21 03/29/21 03/29/21 11:35 16:50 21:06 WBC RBC Hgb Hct MCH MCHC RDW Plt Count Lymph % (Auto) [place] # (Auto) Eos # (Auto) Seg Neutrophils % Lymphocytes % (Manual) Eosinophils % (Manual) Basophils % (Manual) Nucleated RBC % Seg Neutrophils # Seg Neutrophils # Man Lymphocytes # (Manual) Monocytes # (Manual) Eosinophils # (Manual) Basophils # (Manual) Percent Retic PT INR Fibrinogen D-Dimer ABG pH POC ABG pCO2 POC ABG pO2 ABG pO2 64.9 L ABG HCO3 ABG O2 Saturation ABG Base Excess -5.2 L ABG Hemoglobin ABG Oxyhemoglobin ABG Sodium ABG Potassium ABG Chloride ABG Glucose Oxyhemoglobin 85.1 L Carboxyhemoglobin Sodium Potassium Chloride Carbon Dioxide BUN Creatinine Glucose POC Glucose 148 H 133 H Hemoglobin A1c Calcium Phosphorus Magnesium AST ALT Alkaline Phosphatase Lactate Dehydrogenase C-Reactive Protein Total Protein Albumin Triglycerides Arterial Blood Glucose Arterial Blood Ionized Calcium Urine WBC (Auto) U Epithel Cells (Auto) Urine Creatinine Random Vancomycin Coronavirus (PCR) Crossmatch 03/29/21 03/30/21 03/30/21 Unknown 00:13 04:00 WBC 15.7 H RBC 3.18 L Hgb 8.6 L Hct 27.3 L MCH 27 L MCHC RDW 18.0 H Plt Count 86 L Lymph % (Auto) [place] # (Auto) Eos # (Auto) Seg Neutrophils % Lymphocytes % (Manual) Eosinophils % (Manual) Basophils % (Manual) Nucleated RBC % Seg Neutrophils # Seg Neutrophils # Man Lymphocytes # (Manual) Monocytes # (Manual) Eosinophils # (Manual) Basophils # (Manual) Percent Retic PT INR Fibrinogen D-Dimer ABG pH 7.258 L POC ABG pCO2 POC ABG pO2 ABG pO2 ABG HCO3 ABG O2 Saturation ABG Base Excess -4.9 L ABG Hemoglobin 8.8 L ABG Oxyhemoglobin ABG Sodium ABG Potassium ABG Chloride ABG Glucose Oxyhemoglobin 93.9 L Carboxyhemoglobin Sodium Potassium Chloride Carbon Dioxide BUN Creatinine Glucose POC Glucose 129 H Hemoglobin A1c Calcium Phosphorus Magnesium AST ALT Alkaline Phosphatase Lactate Dehydrogenase C-Reactive Protein Total Protein Albumin Triglycerides Arterial Blood Glucose Arterial Blood Ionized Calcium Urine WBC (Auto) U Epithel Cells (Auto) Urine Creatinine Random Vancomycin Coronavirus (PCR) Crossmatch 03/30/21 03/30/21 03/30/21 04:00 04:00 06:02 WBC RBC Hgb Hct MCH MCHC RDW Plt Count Lymph % (Auto) [place] # (Auto) Eos # (Auto) Seg Neutrophils % Lymphocytes % (Manual) Eosinophils % (Manual) Basophils % (Manual) Nucleated RBC % Seg Neutrophils # Seg Neutrophils # Man Lymphocytes # (Manual) Monocytes # (Manual) Eosinophils # (Manual) Basophils # (Manual) Percent Retic PT INR Fibrinogen D-Dimer 2607.12 H ABG pH POC ABG pCO2 POC ABG pO2 ABG pO2 ABG HCO3 ABG O2 Saturation ABG Base Excess ABG Hemoglobin ABG Oxyhemoglobin ABG Sodium ABG Potassium ABG Chloride ABG Glucose Oxyhemoglobin Carboxyhemoglobin Sodium 133 L Potassium 5.2 H D Chloride 91.5 L Carbon Dioxide 18 L BUN 101 H Creatinine 10.6 H Glucose 149 H POC Glucose 130 H Hemoglobin A1c Calcium Phosphorus 10.30 H Magnesium AST ALT Alkaline Phosphatase Lactate Dehydrogenase C-Reactive Protein 21.50 H Total Protein Albumin Triglycerides Arterial Blood Glucose Arterial Blood Ionized Calcium Urine WBC (Auto) U Epithel Cells (Auto) Urine Creatinine Random Vancomycin Coronavirus (PCR) Crossmatch 03/30/21 03/30/21 03/30/21 10:36 11:48 17:20 WBC RBC Hgb Hct MCH MCHC RDW Plt Count Lymph % (Auto) [place] # (Auto) Eos # (Auto) Seg Neutrophils % Lymphocytes % (Manual) Eosinophils % (Manual) Basophils % (Manual) Nucleated RBC % Seg Neutrophils # Seg Neutrophils # Man Lymphocytes # (Manual) Monocytes # (Manual) Eosinophils # (Manual) Basophils # (Manual) Percent Retic PT INR Fibrinogen D-Dimer ABG pH 7.224 L POC ABG pCO2 49.1 H POC ABG pO2 61.5 L ABG pO2 ABG HCO3 ABG O2 Saturation ABG Base Excess ABG Hemoglobin 10.2 L ABG Oxyhemoglobin 86.2 L ABG Sodium 129.6 L ABG Potassium 5.4 H ABG Chloride 96.0 L ABG Glucose 161 H Oxyhemoglobin Carboxyhemoglobin Sodium Potassium Chloride Carbon Dioxide BUN Creatinine Glucose POC Glucose 163 H 130 H Hemoglobin A1c Calcium Phosphorus Magnesium AST ALT Alkaline Phosphatase Lactate Dehydrogenase C-Reactive Protein Total Protein Albumin Triglycerides Arterial Blood Glucose 161 H Arterial Blood Ionized Calcium 4.4 L Urine WBC (Auto) U Epithel Cells (Auto) Urine Creatinine Random Vancomycin Coronavirus (PCR) Crossmatch 03/30/21 03/31/21 03/31/21 23:49 00:28 05:20 WBC 17.3 H RBC 2.99 L Hgb 8.2 L Hct 25.3 L MCH 27 L MCHC RDW 18.3 H Plt Count 126 L Lymph % (Auto) [place] # (Auto) Eos # (Auto) Seg Neutrophils % Lymphocytes % (Manual) Eosinophils % (Manual) Basophils % (Manual) Nucleated RBC % Seg Neutrophils # Seg Neutrophils # Man Lymphocytes # (Manual) Monocytes # (Manual) Eosinophils # (Manual) Basophils # (Manual) Percent Retic PT INR Fibrinogen D-Dimer ABG pH 7.249 L POC ABG pCO2 POC ABG pO2 77.7 L ABG pO2 ABG HCO3 ABG O2 Saturation ABG Base Excess ABG Hemoglobin 9.0 L ABG Oxyhemoglobin 92.9 L ABG Sodium 130.4 L ABG Potassium 4.7 H ABG Chloride ABG Glucose 166 H Oxyhemoglobin Carboxyhemoglobin 0.4 L Sodium Potassium Chloride Carbon Dioxide BUN Creatinine Glucose POC Glucose 143 H Hemoglobin A1c Calcium Phosphorus Magnesium AST ALT Alkaline Phosphatase Lactate Dehydrogenase C-Reactive Protein Total Protein Albumin Triglycerides Arterial Blood Glucose 166 H Arterial Blood Ionized Calcium 4.3 L Urine WBC (Auto) U Epithel Cells (Auto) Urine Creatinine Random Vancomycin Coronavirus (PCR) Crossmatch 03/31/21 03/31/21 03/31/21 05:20 06:18 09:44 WBC RBC Hgb Hct MCH MCHC RDW Plt Count Lymph % (Auto) [place] # (Auto) Eos # (Auto) Seg Neutrophils % Lymphocytes % (Manual) Eosinophils % (Manual) Basophils % (Manual) Nucleated RBC % Seg Neutrophils # Seg Neutrophils # Man Lymphocytes # (Manual) Monocytes # (Manual) Eosinophils # (Manual) Basophils # (Manual) Percent Retic PT INR Fibrinogen D-Dimer ABG pH 7.247 L POC ABG pCO2 POC ABG pO2 ABG pO2 ABG HCO3 ABG O2 Saturation 94.4 L ABG Base Excess -5.1 L ABG Hemoglobin 8.2 L ABG Oxyhemoglobin ABG Sodium ABG Potassium ABG Chloride ABG Glucose Oxyhemoglobin 92.4 L Carboxyhemoglobin Sodium Potassium Chloride Carbon Dioxide BUN Creatinine Glucose POC Glucose 155 H Hemoglobin A1c Calcium Phosphorus 8.20 H D Magnesium AST ALT Alkaline Phosphatase Lactate Dehydrogenase C-Reactive Protein Total Protein Albumin Triglycerides Arterial Blood Glucose Arterial Blood Ionized Calcium Urine WBC (Auto) U Epithel Cells (Auto) Urine Creatinine Random Vancomycin Coronavirus (PCR) Crossmatch 03/31/21 03/31/21 03/31/21 09:49 09:55 09:55 WBC RBC Hgb Hct MCH MCHC RDW Plt Count Lymph % (Auto) [place] # (Auto) Eos # (Auto) Seg Neutrophils % Lymphocytes % (Manual) Eosinophils % (Manual) Basophils % (Manual) Nucleated RBC % Seg Neutrophils # Seg Neutrophils # Man Lymphocytes # (Manual) Monocytes # (Manual) Eosinophils # (Manual) Basophils # (Manual) Percent Retic 4.52 H PT 16.5 H INR 1.20 H Fibrinogen D-Dimer ABG pH POC ABG pCO2 POC ABG pO2 ABG pO2 ABG HCO3 ABG O2 Saturation ABG Base Excess ABG Hemoglobin ABG Oxyhemoglobin ABG Sodium ABG Potassium ABG Chloride ABG Glucose Oxyhemoglobin Carboxyhemoglobin Sodium 133 L Potassium Chloride 92.8 L Carbon Dioxide 20 L BUN 87 H Creatinine 8.9 H Glucose 177 H POC Glucose Hemoglobin A1c Calcium 8.2 L Phosphorus Magnesium AST 169 H ALT Alkaline Phosphatase 187 H Lactate Dehydrogenase C-Reactive Protein Total Protein Albumin 2.3 L Triglycerides Arterial Blood Glucose Arterial Blood Ionized Calcium Urine WBC (Auto) U Epithel Cells (Auto) Urine Creatinine Random Vancomycin Coronavirus (PCR) Crossmatch 03/31/21 03/31/21 03/31/21 09:55 09:55 11:25 WBC RBC Hgb Hct MCH MCHC RDW Plt Count Lymph % (Auto) [place] # (Auto) Eos # (Auto) Seg Neutrophils % Lymphocytes % (Manual) Eosinophils % (Manual) Basophils % (Manual) Nucleated RBC % Seg Neutrophils # Seg Neutrophils # Man Lymphocytes # (Manual) Monocytes # (Manual) Eosinophils # (Manual) Basophils # (Manual) Percent Retic PT INR Fibrinogen 491 H D-Dimer ABG pH POC ABG pCO2 POC ABG pO2 ABG pO2 ABG HCO3 ABG O2 Saturation ABG Base Excess ABG Hemoglobin ABG Oxyhemoglobin ABG Sodium ABG Potassium ABG Chloride ABG Glucose Oxyhemoglobin Carboxyhemoglobin Sodium Potassium Chloride Carbon Dioxide BUN Creatinine Glucose POC Glucose 178 H Hemoglobin A1c Calcium Phosphorus Magnesium AST ALT Alkaline Phosphatase Lactate Dehydrogenase 509 H C-Reactive Protein Total Protein Albumin Triglycerides Arterial Blood Glucose Arterial Blood Ionized Calcium Urine WBC (Auto) U Epithel Cells (Auto) Urine Creatinine Random Vancomycin Coronavirus (PCR) Crossmatch 03/31/21 03/31/21 03/31/21 12:30 17:40 21:00 WBC RBC Hgb Hct MCH MCHC RDW Plt Count Lymph % (Auto) [place] # (Auto) Eos # (Auto) Seg Neutrophils % Lymphocytes % (Manual) Eosinophils % (Manual) Basophils % (Manual) Nucleated RBC % Seg Neutrophils # Seg Neutrophils # Man Lymphocytes # (Manual) Monocytes # (Manual) Eosinophils # (Manual) Basophils # (Manual) Percent Retic PT INR Fibrinogen D-Dimer ABG pH 7.235 L 7.216 L POC ABG pCO2 POC ABG pO2 ABG pO2 76.8 L 113.9 H ABG HCO3 ABG O2 Saturation 93.2 L ABG Base Excess -5.3 L -7.3 L ABG Hemoglobin 6.3 L 8.0 L ABG Oxyhemoglobin ABG Sodium ABG Potassium ABG Chloride ABG Glucose Oxyhemoglobin 91.1 L Carboxyhemoglobin Sodium Potassium Chloride Carbon Dioxide BUN Creatinine Glucose POC Glucose 245 H Hemoglobin A1c Calcium Phosphorus Magnesium AST ALT Alkaline Phosphatase Lactate Dehydrogenase C-Reactive Protein Total Protein Albumin Triglycerides Arterial Blood Glucose Arterial Blood Ionized Calcium Urine WBC (Auto) U Epithel Cells (Auto) Urine Creatinine Random Vancomycin Coronavirus (PCR) Crossmatch 04/01/21 04/01/21 04/01/21 00:11 05:09 08:25 WBC RBC Hgb Hct MCH MCHC RDW Plt Count Lymph % (Auto) [place] # (Auto) Eos # (Auto) Seg Neutrophils % Lymphocytes % (Manual) Eosinophils % (Manual) Basophils % (Manual) Nucleated RBC % Seg Neutrophils # Seg Neutrophils # Man Lymphocytes # (Manual) Monocytes # (Manual) Eosinophils # (Manual) Basophils # (Manual) Percent Retic PT INR Fibrinogen D-Dimer ABG pH 7.225 L POC ABG pCO2 POC ABG pO2 ABG pO2 76.4 L ABG HCO3 ABG O2 Saturation 92.2 L ABG Base Excess -7.6 L ABG Hemoglobin 7.3 L ABG Oxyhemoglobin ABG Sodium ABG Potassium ABG Chloride ABG Glucose Oxyhemoglobin 90.2 L Carboxyhemoglobin Sodium Potassium Chloride Carbon Dioxide BUN Creatinine Glucose POC Glucose 209 H 173 H Hemoglobin A1c Calcium Phosphorus Magnesium AST ALT Alkaline Phosphatase Lactate Dehydrogenase C-Reactive Protein Total Protein Albumin Triglycerides Arterial Blood Glucose Arterial Blood Ionized Calcium Urine WBC (Auto) U Epithel Cells (Auto) Urine Creatinine Random Vancomycin Coronavirus (PCR) Crossmatch 04/01/21 04/01/21 04/01/21 12:01 12:05 17:55 WBC RBC Hgb Hct MCH MCHC RDW Plt Count Lymph % (Auto) [place] # (Auto) Eos # (Auto) Seg Neutrophils % Lymphocytes % (Manual) Eosinophils % (Manual) Basophils % (Manual) Nucleated RBC % Seg Neutrophils # Seg Neutrophils # Man Lymphocytes # (Manual) Monocytes # (Manual) Eosinophils # (Manual) Basophils # (Manual) Percent Retic PT INR Fibrinogen D-Dimer ABG pH POC ABG pCO2 POC ABG pO2 ABG pO2 ABG HCO3 ABG O2 Saturation ABG Base Excess ABG Hemoglobin ABG Oxyhemoglobin ABG Sodium ABG Potassium ABG Chloride ABG Glucose Oxyhemoglobin Carboxyhemoglobin Sodium Potassium 5.9 H Chloride Carbon Dioxide BUN Creatinine Glucose POC Glucose 202 H 217 H Hemoglobin A1c Calcium Phosphorus Magnesium AST ALT Alkaline Phosphatase Lactate Dehydrogenase C-Reactive Protein Total Protein Albumin Triglycerides Arterial Blood Glucose Arterial Blood Ionized Calcium Urine WBC (Auto) U Epithel Cells (Auto) Urine Creatinine Random Vancomycin Coronavirus (PCR) Crossmatch 04/01/21 04/01/21 04/01/21 Unknown Unknown 23:59 WBC 27.2 H RBC 3.08 L Hgb 8.4 L Hct 26.0 L MCH 27 L MCHC RDW 18.5 H Plt Count Lymph % (Auto) [place] # (Auto) Eos # (Auto) Seg Neutrophils % Lymphocytes % (Manual) Eosinophils % (Manual) Basophils % (Manual) Nucleated RBC % Seg Neutrophils # Seg Neutrophils # Man Lymphocytes # (Manual) Monocytes # (Manual) Eosinophils # (Manual) Basophils # (Manual) Percent Retic PT INR Fibrinogen D-Dimer ABG pH POC ABG pCO2 POC ABG pO2 ABG pO2 ABG HCO3 ABG O2 Saturation ABG Base Excess ABG Hemoglobin ABG Oxyhemoglobin ABG Sodium ABG Potassium ABG Chloride ABG Glucose Oxyhemoglobin Carboxyhemoglobin Sodium 132 L Potassium 6.6 H* D Chloride 91.3 L Carbon Dioxide 17 L BUN 104 H Creatinine 9.3 H Glucose 199 H POC Glucose 172 H Hemoglobin A1c Calcium 8.3 L Phosphorus Magnesium AST 236 H ALT 93 H Alkaline Phosphatase 191 H Lactate Dehydrogenase C-Reactive Protein Total Protein Albumin 2.4 L Triglycerides Arterial Blood Glucose Arterial Blood Ionized Calcium Urine WBC (Auto) U Epithel Cells (Auto) Urine Creatinine Random Vancomycin Coronavirus (PCR) Crossmatch 04/02/21 04/02/21 04/02/21 04:00 04:00 05:00 WBC 31.0 H RBC 2.93 L Hgb 8.0 L Hct 24.7 L MCH 27 L MCHC RDW 19.2 H Plt Count 131 L Lymph % (Auto) [place] # (Auto) Eos # (Auto) Seg Neutrophils % Lymphocytes % (Manual) Eosinophils % (Manual) Basophils % (Manual) Nucleated RBC % Seg Neutrophils # Seg Neutrophils # Man Lymphocytes # (Manual) Monocytes # (Manual) Eosinophils # (Manual) Basophils # (Manual) Percent Retic PT 16.0 H INR 1.16 H Fibrinogen D-Dimer ABG pH POC ABG pCO2 POC ABG pO2 ABG pO2 ABG HCO3 ABG O2 Saturation ABG Base Excess ABG Hemoglobin ABG Oxyhemoglobin ABG Sodium ABG Potassium ABG Chloride ABG Glucose Oxyhemoglobin Carboxyhemoglobin Sodium 135 L Potassium 5.3 H Chloride 96.1 L Carbon Dioxide 18 L BUN 80 H Creatinine 6.8 H Glucose 174 H POC Glucose Hemoglobin A1c Calcium 7.7 L Phosphorus Magnesium AST 106 H ALT 60 H Alkaline Phosphatase Lactate Dehydrogenase C-Reactive Protein Total Protein 5.9 L Albumin 3.5 L Triglycerides 579 H Arterial Blood Glucose Arterial Blood Ionized Calcium Urine WBC (Auto) U Epithel Cells (Auto) Urine Creatinine Random Vancomycin Coronavirus (PCR) Crossmatch 04/02/21 04/02/21 04/02/21 05:09 08:55 11:06 WBC RBC Hgb Hct MCH MCHC RDW Plt Count Lymph % (Auto) [place] # (Auto) Eos # (Auto) Seg Neutrophils % Lymphocytes % (Manual) Eosinophils % (Manual) Basophils % (Manual) Nucleated RBC % Seg Neutrophils # Seg Neutrophils # Man Lymphocytes # (Manual) Monocytes # (Manual) Eosinophils # (Manual) Basophils # (Manual) Percent Retic PT INR Fibrinogen D-Dimer ABG pH 7.188 L POC ABG pCO2 58.3 H POC ABG pO2 132.8 H ABG pO2 ABG HCO3 ABG O2 Saturation ABG Base Excess ABG Hemoglobin 8.4 L ABG Oxyhemoglobin ABG Sodium ABG Potassium 5.0 H ABG Chloride 97.0 L ABG Glucose 156 H Oxyhemoglobin Carboxyhemoglobin 0.4 L Sodium Potassium Chloride Carbon Dioxide BUN Creatinine Glucose POC Glucose 148 H 167 H Hemoglobin A1c Calcium Phosphorus Magnesium AST ALT Alkaline Phosphatase Lactate Dehydrogenase C-Reactive Protein Total Protein Albumin Triglycerides Arterial Blood Glucose 156 H Arterial Blood Ionized Calcium 4.2 L Urine WBC (Auto) U Epithel Cells (Auto) Urine Creatinine Random Vancomycin Coronavirus (PCR) Crossmatch 04/02/21 04/02/21 04/03/21 17:57 20:40 00:28 WBC RBC Hgb Hct MCH MCHC RDW Plt Count Lymph % (Auto) [place] # (Auto) Eos # (Auto) Seg Neutrophils % Lymphocytes % (Manual) Eosinophils % (Manual) Basophils % (Manual) Nucleated RBC % Seg Neutrophils # Seg Neutrophils # Man Lymphocytes # (Manual) Monocytes # (Manual) Eosinophils # (Manual) Basophils # (Manual) Percent Retic PT INR Fibrinogen D-Dimer ABG pH POC ABG pCO2 POC ABG pO2 ABG pO2 111.9 H ABG HCO3 18.9 L ABG O2 Saturation ABG Base Excess -9.9 L ABG Hemoglobin ABG Oxyhemoglobin ABG Sodium ABG Potassium ABG Chloride ABG Glucose Oxyhemoglobin Carboxyhemoglobin Sodium Potassium Chloride Carbon Dioxide BUN Creatinine Glucose POC Glucose 205 H 217 H Hemoglobin A1c Calcium Phosphorus Magnesium AST ALT Alkaline Phosphatase Lactate Dehydrogenase C-Reactive Protein Total Protein Albumin Triglycerides Arterial Blood Glucose Arterial Blood Ionized Calcium Urine WBC (Auto) U Epithel Cells (Auto) Urine Creatinine Random Vancomycin Coronavirus (PCR) Crossmatch 04/03/21 04/03/21 04/03/21 03:39 04:30 04:30 WBC 31.1 H RBC 2.78 L Hgb 8.0 L Hct 24.0 L MCH MCHC RDW 19.0 H Plt Count Lymph % (Auto) [place] # (Auto) Eos # (Auto) Seg Neutrophils % Lymphocytes % (Manual) Eosinophils % (Manual) 27.0 H Basophils % (Manual) 2.0 H Nucleated RBC % Seg Neutrophils # Seg Neutrophils # Man 13.7 H Lymphocytes # (Manual) 8.4 H Monocytes # (Manual) Eosinophils # (Manual) 8.4 H Basophils # (Manual) 0.6 H Percent Retic PT INR Fibrinogen D-Dimer ABG pH POC ABG pCO2 POC ABG pO2 ABG pO2 ABG HCO3 ABG O2 Saturation ABG Base Excess ABG Hemoglobin ABG Oxyhemoglobin ABG Sodium ABG Potassium ABG Chloride ABG Glucose Oxyhemoglobin Carboxyhemoglobin Sodium 132 L Potassium 5.8 H Chloride 94.5 L Carbon Dioxide 16 L BUN 97 H Creatinine 7.7 H Glucose 230 H POC Glucose 201 H Hemoglobin A1c Calcium 7.6 L Phosphorus Magnesium AST 47 H ALT Alkaline Phosphatase 146 H Lactate Dehydrogenase C-Reactive Protein Total Protein 5.2 L Albumin 3.4 L Triglycerides Arterial Blood Glucose Arterial Blood Ionized Calcium Urine WBC (Auto) U Epithel Cells (Auto) Urine Creatinine Random Vancomycin Coronavirus (PCR) Crossmatch 04/03/21 04/03/21 04/03/21 04:30 08:31 11:29 WBC RBC Hgb Hct MCH MCHC RDW Plt Count Lymph % (Auto) [place] # (Auto) Eos # (Auto) Seg Neutrophils % Lymphocytes % (Manual) Eosinophils % (Manual) Basophils % (Manual) Nucleated RBC % Seg Neutrophils # Seg Neutrophils # Man Lymphocytes # (Manual) Monocytes # (Manual) Eosinophils # (Manual) Basophils # (Manual) Percent Retic PT INR Fibrinogen D-Dimer ABG pH 7.195 L* POC ABG pCO2 POC ABG pO2 ABG pO2 102.6 H ABG HCO3 ABG O2 Saturation ABG Base Excess -7.2 L ABG Hemoglobin 8.0 L ABG Oxyhemoglobin ABG Sodium ABG Potassium ABG Chloride ABG Glucose Oxyhemoglobin 94.7 L Carboxyhemoglobin Sodium Potassium Chloride Carbon Dioxide BUN Creatinine Glucose POC Glucose 230 H Hemoglobin A1c Calcium Phosphorus 10.30 H Magnesium AST ALT Alkaline Phosphatase Lactate Dehydrogenase C-Reactive Protein Total Protein Albumin Triglycerides Arterial Blood Glucose Arterial Blood Ionized Calcium Urine WBC (Auto) U Epithel Cells (Auto) Urine Creatinine Random Vancomycin Coronavirus (PCR) Crossmatch 04/03/21 04/03/21 04/04/21 16:53 20:45 05:00 WBC 28.8 H RBC 2.64 L Hgb 8.7 L Hct 22.2 L MCH 33 H MCHC 39 H* RDW 18.6 H Plt Count Lymph % (Auto) [place] # (Auto) Eos # (Auto) Seg Neutrophils % Lymphocytes % (Manual) Eosinophils % (Manual) Basophils % (Manual) Nucleated RBC % Seg Neutrophils # Seg Neutrophils # Man Lymphocytes # (Manual) Monocytes # (Manual) Eosinophils # (Manual) Basophils # (Manual) Percent Retic PT INR Fibrinogen D-Dimer ABG pH POC ABG pCO2 POC ABG pO2 ABG pO2 ABG HCO3 ABG O2 Saturation ABG Base Excess ABG Hemoglobin ABG Oxyhemoglobin ABG Sodium ABG Potassium ABG Chloride ABG Glucose Oxyhemoglobin 94.8 L Carboxyhemoglobin Sodium Potassium Chloride Carbon Dioxide BUN Creatinine Glucose POC Glucose 227 H Hemoglobin A1c Calcium Phosphorus Magnesium AST ALT Alkaline Phosphatase Lactate Dehydrogenase C-Reactive Protein Total Protein Albumin Triglycerides Arterial Blood Glucose Arterial Blood Ionized Calcium Urine WBC (Auto) U Epithel Cells (Auto) Urine Creatinine Random Vancomycin Coronavirus (PCR) Crossmatch 04/04/21 04/04/21 04/04/21 05:29 07:55 09:20 WBC RBC Hgb Hct MCH MCHC RDW Plt Count Lymph % (Auto) [place] # (Auto) Eos # (Auto) Seg Neutrophils % Lymphocytes % (Manual) Eosinophils % (Manual) Basophils % (Manual) Nucleated RBC % Seg Neutrophils # Seg Neutrophils # Man Lymphocytes # (Manual) Monocytes # (Manual) Eosinophils # (Manual) Basophils # (Manual) Percent Retic PT INR Fibrinogen D-Dimer ABG pH POC ABG pCO2 POC ABG pO2 ABG pO2 ABG HCO3 ABG O2 Saturation ABG Base Excess ABG Hemoglobin ABG Oxyhemoglobin ABG Sodium ABG Potassium ABG Chloride ABG Glucose Oxyhemoglobin Carboxyhemoglobin Sodium 133 L Potassium Chloride 91.0 L Carbon Dioxide 20 L BUN 75 H Creatinine 4.7 H Glucose 184 H POC Glucose 133 H Hemoglobin A1c Calcium 7.3 L Phosphorus Magnesium AST < 5 L ALT < 5 L Alkaline Phosphatase 200 H Lactate Dehydrogenase C-Reactive Protein Total Protein 5.6 L Albumin 2.9 L Triglycerides Arterial Blood Glucose Arterial Blood Ionized Calcium Urine WBC (Auto) U Epithel Cells (Auto) Urine Creatinine Random Vancomycin Coronavirus (PCR) Crossmatch See Detail 04/04/21 04/04/21 04/04/21 12:01 14:06 17:05 WBC RBC Hgb Hct MCH MCHC RDW Plt Count Lymph % (Auto) [place] # (Auto) Eos # (Auto) Seg Neutrophils % Lymphocytes % (Manual) Eosinophils % (Manual) Basophils % (Manual) Nucleated RBC % Seg Neutrophils # Seg Neutrophils # Man Lymphocytes # (Manual) Monocytes # (Manual) Eosinophils # (Manual) Basophils # (Manual) Percent Retic PT INR Fibrinogen D-Dimer ABG pH 7.162 L* POC ABG pCO2 POC ABG pO2 ABG pO2 91.3 H ABG HCO3 ABG O2 Saturation 94.8 L ABG Base Excess -4.0 L ABG Hemoglobin 7.6 L ABG Oxyhemoglobin ABG Sodium ABG Potassium ABG Chloride ABG Glucose Oxyhemoglobin 92.4 L Carboxyhemoglobin Sodium Potassium Chloride Carbon Dioxide BUN Creatinine Glucose POC Glucose 199 H 166 H Hemoglobin A1c Calcium Phosphorus Magnesium AST ALT Alkaline Phosphatase Lactate Dehydrogenase C-Reactive Protein Total Protein Albumin Triglycerides Arterial Blood Glucose Arterial Blood Ionized Calcium Urine WBC (Auto) U Epithel Cells (Auto) Urine Creatinine Random Vancomycin Coronavirus (PCR) Crossmatch 04/04/21 04/04/21 04/05/21 21:14 23:30 05:20 WBC RBC Hgb Hct MCH MCHC RDW Plt Count Lymph % (Auto) [place] # (Auto) Eos # (Auto) Seg Neutrophils % Lymphocytes % (Manual) Eosinophils % (Manual) Basophils % (Manual) Nucleated RBC % Seg Neutrophils # Seg Neutrophils # Man Lymphocytes # (Manual) Monocytes # (Manual) Eosinophils # (Manual) Basophils # (Manual) Percent Retic PT INR Fibrinogen D-Dimer ABG pH 7.257 L POC ABG pCO2 POC ABG pO2 ABG pO2 73.8 L ABG HCO3 ABG O2 Saturation 91.6 L ABG Base Excess -2.7 L ABG Hemoglobin 8.6 L ABG Oxyhemoglobin ABG Sodium ABG Potassium ABG Chloride ABG Glucose Oxyhemoglobin 89.1 L Carboxyhemoglobin Sodium 131 L Potassium Chloride 91.2 L Carbon Dioxide 17 L BUN 85 H Creatinine 5.1 H Glucose 183 H POC Glucose 158 H Hemoglobin A1c Calcium 7.4 L Phosphorus Magnesium AST ALT Alkaline Phosphatase 190 H Lactate Dehydrogenase 394 H C-Reactive Protein Total Protein 5.8 L Albumin 2.7 L Triglycerides Arterial Blood Glucose Arterial Blood Ionized Calcium Urine WBC (Auto) U Epithel Cells (Auto) Urine Creatinine Random Vancomycin Coronavirus (PCR) Crossmatch 04/05/21 04/05/21 04/05/21 05:20 05:20 05:24 WBC 30.8 H RBC 2.83 L Hgb 8.4 L Hct 24.4 L MCH MCHC 35 H RDW 18.9 H Plt Count Lymph % (Auto) [place] # (Auto) Eos # (Auto) Seg Neutrophils % Lymphocytes % (Manual) Eosinophils % (Manual) Basophils % (Manual) Nucleated RBC % Seg Neutrophils # Seg Neutrophils # Man Lymphocytes # (Manual) Monocytes # (Manual) Eosinophils # (Manual) Basophils # (Manual) Percent Retic PT INR Fibrinogen D-Dimer ABG pH POC ABG pCO2 POC ABG pO2 ABG pO2 ABG HCO3 ABG O2 Saturation ABG Base Excess ABG Hemoglobin ABG Oxyhemoglobin ABG Sodium ABG Potassium ABG Chloride ABG Glucose Oxyhemoglobin Carboxyhemoglobin Sodium Potassium Chloride Carbon Dioxide BUN Creatinine Glucose POC Glucose 162 H Hemoglobin A1c Calcium Phosphorus 9.40 H Magnesium AST ALT Alkaline Phosphatase Lactate Dehydrogenase C-Reactive Protein Total Protein Albumin Triglycerides Arterial Blood Glucose Arterial Blood Ionized Calcium Urine WBC (Auto) U Epithel Cells (Auto) Urine Creatinine Random Vancomycin Coronavirus (PCR) Crossmatch 04/05/21 04/05/21 04/05/21 11:31 12:23 21:40 WBC RBC Hgb Hct MCH MCHC RDW Plt Count Lymph % (Auto) [place] # (Auto) Eos # (Auto) Seg Neutrophils % Lymphocytes % (Manual) Eosinophils % (Manual) Basophils % (Manual) Nucleated RBC % Seg Neutrophils # Seg Neutrophils # Man Lymphocytes # (Manual) Monocytes # (Manual) Eosinophils # (Manual) Basophils # (Manual) Percent Retic PT INR Fibrinogen D-Dimer ABG pH 7.325 L POC ABG pCO2 POC ABG pO2 ABG pO2 65.6 L ABG HCO3 ABG O2 Saturation 91.2 L ABG Base Excess ABG Hemoglobin 6.7 L ABG Oxyhemoglobin ABG Sodium ABG Potassium ABG Chloride ABG Glucose Oxyhemoglobin 89.0 L Carboxyhemoglobin Sodium Potassium Chloride Carbon Dioxide BUN Creatinine Glucose POC Glucose 196 H 190 H Hemoglobin A1c Calcium Phosphorus Magnesium AST ALT Alkaline Phosphatase Lactate Dehydrogenase C-Reactive Protein Total Protein Albumin Triglycerides Arterial Blood Glucose Arterial Blood Ionized Calcium Urine WBC (Auto) U Epithel Cells (Auto) Urine Creatinine Random Vancomycin Coronavirus (PCR) Crossmatch 04/05/21 04/06/21 04/06/21 23:53 05:35 06:00 WBC RBC Hgb Hct MCH MCHC RDW Plt Count Lymph % (Auto) [place] # (Auto) Eos # (Auto) Seg Neutrophils % Lymphocytes % (Manual) Eosinophils % (Manual) Basophils % (Manual) Nucleated RBC % Seg Neutrophils # Seg Neutrophils # Man Lymphocytes # (Manual) Monocytes # (Manual) Eosinophils # (Manual) Basophils # (Manual) Percent Retic PT INR Fibrinogen D-Dimer ABG pH POC ABG pCO2 POC ABG pO2 ABG pO2 ABG HCO3 ABG O2 Saturation ABG Base Excess ABG Hemoglobin ABG Oxyhemoglobin ABG Sodium ABG Potassium ABG Chloride ABG Glucose Oxyhemoglobin Carboxyhemoglobin Sodium 132 L Potassium Chloride 90.7 L Carbon Dioxide 21 L BUN 74 H Creatinine 4.3 H Glucose 156 H POC Glucose 192 H 139 H Hemoglobin A1c Calcium 7.9 L Phosphorus 6.90 H D Magnesium AST < 5 L ALT < 5 L Alkaline Phosphatase 185 H Lactate Dehydrogenase C-Reactive Protein Total Protein 5.7 L Albumin 2.5 L Triglycerides Arterial Blood Glucose Arterial Blood Ionized Calcium Urine WBC (Auto) U Epithel Cells (Auto) Urine Creatinine Random Vancomycin Coronavirus (PCR) Crossmatch 04/06/21 04/06/21 04/06/21 06:00 11:27 18:01 WBC 26.7 H RBC 2.39 L Hgb 6.9 L Hct 20.1 L MCH MCHC RDW 18.7 H Plt Count Lymph % (Auto) [place] # (Auto) Eos # (Auto) Seg Neutrophils % Lymphocytes % (Manual) Eosinophils % (Manual) Basophils % (Manual) Nucleated RBC % Seg Neutrophils # Seg Neutrophils # Man Lymphocytes # (Manual) Monocytes # (Manual) Eosinophils # (Manual) Basophils # (Manual) Percent Retic PT INR Fibrinogen D-Dimer ABG pH POC ABG pCO2 POC ABG pO2 ABG pO2 ABG HCO3 ABG O2 Saturation ABG Base Excess ABG Hemoglobin ABG Oxyhemoglobin ABG Sodium ABG Potassium ABG Chloride ABG Glucose Oxyhemoglobin Carboxyhemoglobin Sodium Potassium Chloride Carbon Dioxide BUN Creatinine Glucose POC Glucose 166 H 159 H Hemoglobin A1c Calcium Phosphorus Magnesium AST ALT Alkaline Phosphatase Lactate Dehydrogenase C-Reactive Protein Total Protein Albumin Triglycerides Arterial Blood Glucose Arterial Blood Ionized Calcium Urine WBC (Auto) U Epithel Cells (Auto) Urine Creatinine Random Vancomycin Coronavirus (PCR) Crossmatch 04/06/21 04/06/21 04/06/21 20:50 23:43 Unknown WBC RBC Hgb Hct MCH MCHC RDW Plt Count Lymph % (Auto) [place] # (Auto) Eos # (Auto) Seg Neutrophils % Lymphocytes % (Manual) Eosinophils % (Manual) Basophils % (Manual) Nucleated RBC % Seg Neutrophils # Seg Neutrophils # Man Lymphocytes # (Manual) Monocytes # (Manual) Eosinophils # (Manual) Basophils # (Manual) Percent Retic PT INR Fibrinogen D-Dimer ABG pH 7.303 L POC ABG pCO2 POC ABG pO2 67.9 L ABG pO2 ABG HCO3 ABG O2 Saturation ABG Base Excess ABG Hemoglobin 7.6 L ABG Oxyhemoglobin 90.2 L ABG Sodium 128.6 L ABG Potassium ABG Chloride 97.0 L ABG Glucose 154 H Oxyhemoglobin Carboxyhemoglobin Sodium Potassium Chloride Carbon Dioxide BUN Creatinine Glucose POC Glucose 137 H Hemoglobin A1c Calcium Phosphorus Magnesium AST ALT Alkaline Phosphatase Lactate Dehydrogenase C-Reactive Protein Total Protein Albumin Triglycerides Arterial Blood Glucose 154 H Arterial Blood Ionized Calcium Urine WBC (Auto) 148.0 H U Epithel Cells (Auto) 102.0 H Urine Creatinine Random Vancomycin Coronavirus (PCR) Crossmatch 04/07/21 04/07/21 04/07/21 03:50 03:50 03:50 WBC 26.7 H RBC 2.66 L Hgb 7.6 L Hct 23.2 L MCH MCHC RDW 18.5 H Plt Count Lymph % (Auto) [place] # (Auto) Eos # (Auto) Seg Neutrophils % Lymphocytes % (Manual) 10.0 L Eosinophils % (Manual) 19.0 H Basophils % (Manual) Nucleated RBC % 2.0 H Seg Neutrophils # Seg Neutrophils # Man 17.9 H Lymphocytes # (Manual) Monocytes # (Manual) 1.1 H Eosinophils # (Manual) 5.1 H Basophils # (Manual) Percent Retic PT INR Fibrinogen D-Dimer 2178 H ABG pH POC ABG pCO2 POC ABG pO2 ABG pO2 ABG HCO3 ABG O2 Saturation ABG Base Excess ABG Hemoglobin ABG Oxyhemoglobin ABG Sodium ABG Potassium ABG Chloride ABG Glucose Oxyhemoglobin Carboxyhemoglobin Sodium 130 L Potassium Chloride 91.1 L Carbon Dioxide 19 L BUN 92 H Creatinine 4.2 H Glucose 213 H POC Glucose Hemoglobin A1c Calcium 7.8 L Phosphorus Magnesium AST ALT Alkaline Phosphatase Lactate Dehydrogenase C-Reactive Protein Total Protein Albumin Triglycerides Arterial Blood Glucose Arterial Blood Ionized Calcium Urine WBC (Auto) U Epithel Cells (Auto) Urine Creatinine Random Vancomycin Coronavirus (PCR) Crossmatch 04/07/21 04/07/21 04/07/21 04:00 05:42 11:10 WBC RBC Hgb Hct MCH MCHC RDW Plt Count Lymph % (Auto) [place] # (Auto) Eos # (Auto) Seg Neutrophils % Lymphocytes % (Manual) Eosinophils % (Manual) Basophils % (Manual) Nucleated RBC % Seg Neutrophils # Seg Neutrophils # Man Lymphocytes # (Manual) Monocytes # (Manual) Eosinophils # (Manual) Basophils # (Manual) Percent Retic PT INR Fibrinogen D-Dimer ABG pH POC ABG pCO2 POC ABG pO2 ABG pO2 ABG HCO3 ABG O2 Saturation ABG Base Excess ABG Hemoglobin ABG Oxyhemoglobin ABG Sodium ABG Potassium ABG Chloride ABG Glucose Oxyhemoglobin Carboxyhemoglobin Sodium 129 L Potassium 5.1 H Chloride 89.6 L Carbon Dioxide 18 L BUN 94 H Creatinine 4.2 H Glucose 213 H POC Glucose 177 H 136 H Hemoglobin A1c Calcium 7.9 L Phosphorus Magnesium AST ALT Alkaline Phosphatase 167 H Lactate Dehydrogenase C-Reactive Protein Total Protein Albumin 2.8 L Triglycerides Arterial Blood Glucose Arterial Blood Ionized Calcium Urine WBC (Auto) U Epithel Cells (Auto) Urine Creatinine Random Vancomycin Coronavirus (PCR) Crossmatch 04/07/21 04/07/21 04/08/21 16:19 21:30 02:32 WBC RBC Hgb Hct MCH MCHC RDW Plt Count Lymph % (Auto) [place] # (Auto) Eos # (Auto) Seg Neutrophils % Lymphocytes % (Manual) Eosinophils % (Manual) Basophils % (Manual) Nucleated RBC % Seg Neutrophils # Seg Neutrophils # Man Lymphocytes # (Manual) Monocytes # (Manual) Eosinophils # (Manual) Basophils # (Manual) Percent Retic PT INR Fibrinogen D-Dimer ABG pH 7.209 L POC ABG pCO2 64.8 H POC ABG pO2 ABG pO2 ABG HCO3 ABG O2 Saturation ABG Base Excess ABG Hemoglobin 7.9 L ABG Oxyhemoglobin 93.8 L ABG Sodium 128.8 L ABG Potassium 4.6 H ABG Chloride 97.0 L ABG Glucose 170 H Oxyhemoglobin Carboxyhemoglobin 1.6 H Sodium Potassium Chloride Carbon Dioxide BUN Creatinine Glucose POC Glucose 155 H 141 H Hemoglobin A1c Calcium Phosphorus Magnesium AST ALT Alkaline Phosphatase Lactate Dehydrogenase C-Reactive Protein Total Protein Albumin Triglycerides Arterial Blood Glucose 170 H Arterial Blood Ionized Calcium 4.2 L Urine WBC (Auto) U Epithel Cells (Auto) Urine Creatinine Random Vancomycin Coronavirus (PCR) Crossmatch 04/08/21 04/08/21 04/08/21 04:00 04:40 04:40 WBC 23.7 H RBC 2.51 L Hgb 6.9 L Hct 22.1 L MCH 27 L MCHC RDW 18.4 H Plt Count Lymph % (Auto) [place] # (Auto) Eos # (Auto) Seg Neutrophils % Lymphocytes % (Manual) Eosinophils % (Manual) Basophils % (Manual) Nucleated RBC % Seg Neutrophils # Seg Neutrophils # Man Lymphocytes # (Manual) Monocytes # (Manual) Eosinophils # (Manual) Basophils # (Manual) Percent Retic PT INR Fibrinogen D-Dimer 2696.79 H ABG pH POC ABG pCO2 POC ABG pO2 ABG pO2 ABG HCO3 ABG O2 Saturation ABG Base Excess ABG Hemoglobin ABG Oxyhemoglobin ABG Sodium ABG Potassium ABG Chloride ABG Glucose Oxyhemoglobin Carboxyhemoglobin Sodium 133 L Potassium 5.5 H Chloride 93.5 L Carbon Dioxide BUN 78 H Creatinine 3.5 H Glucose 171 H POC Glucose Hemoglobin A1c Calcium 8.1 L Phosphorus 9.30 H Magnesium AST ALT Alkaline Phosphatase Lactate Dehydrogenase C-Reactive Protein 26.10 H Total Protein Albumin Triglycerides 487 H Arterial Blood Glucose Arterial Blood Ionized Calcium Urine WBC (Auto) U Epithel Cells (Auto) Urine Creatinine Random Vancomycin Coronavirus (PCR) Crossmatch 04/08/21 04/08/21 04/08/21 09:55 11:37 13:55 WBC RBC Hgb Hct MCH MCHC RDW Plt Count Lymph % (Auto) [place] # (Auto) Eos # (Auto) Seg Neutrophils % Lymphocytes % (Manual) Eosinophils % (Manual) Basophils % (Manual) Nucleated RBC % Seg Neutrophils # Seg Neutrophils # Man Lymphocytes # (Manual) Monocytes # (Manual) Eosinophils # (Manual) Basophils # (Manual) Percent Retic PT INR Fibrinogen D-Dimer ABG pH 7.114 L* POC ABG pCO2 POC ABG pO2 ABG pO2 75.9 L ABG HCO3 26.2 H ABG O2 Saturation 90.6 L ABG Base Excess -3.6 L ABG Hemoglobin 8.2 L ABG Oxyhemoglobin ABG Sodium ABG Potassium ABG Chloride ABG Glucose Oxyhemoglobin 88.0 L Carboxyhemoglobin Sodium Potassium Chloride Carbon Dioxide BUN Creatinine Glucose POC Glucose 156 H Hemoglobin A1c Calcium Phosphorus Magnesium AST ALT Alkaline Phosphatase Lactate Dehydrogenase C-Reactive Protein Total Protein Albumin Triglycerides Arterial Blood Glucose Arterial Blood Ionized Calcium Urine WBC (Auto) U Epithel Cells (Auto) Urine Creatinine Random Vancomycin Coronavirus (PCR) Crossmatch See Detail 04/08/21 04/08/21 04/08/21 17:04 20:53 23:56 WBC RBC Hgb Hct MCH MCHC RDW Plt Count Lymph % (Auto) [place] # (Auto) Eos # (Auto) Seg Neutrophils % Lymphocytes % (Manual) Eosinophils % (Manual) Basophils % (Manual) Nucleated RBC % Seg Neutrophils # Seg Neutrophils # Man Lymphocytes # (Manual) Monocytes # (Manual) Eosinophils # (Manual) Basophils # (Manual) Percent Retic PT INR Fibrinogen D-Dimer ABG pH 7.207 L POC ABG pCO2 49.8 H POC ABG pO2 ABG pO2 ABG HCO3 ABG O2 Saturation ABG Base Excess ABG Hemoglobin 7.6 L ABG Oxyhemoglobin ABG Sodium 127.3 L ABG Potassium 5.7 H ABG Chloride 96.0 L ABG Glucose 185 H Oxyhemoglobin Carboxyhemoglobin Sodium Potassium Chloride Carbon Dioxide BUN Creatinine Glucose POC Glucose 178 H 189 H Hemoglobin A1c Calcium Phosphorus Magnesium AST ALT Alkaline Phosphatase Lactate Dehydrogenase C-Reactive Protein Total Protein Albumin Triglycerides Arterial Blood Glucose 185 H Arterial Blood Ionized Calcium 4.3 L Urine WBC (Auto) U Epithel Cells (Auto) Urine Creatinine Random Vancomycin Coronavirus (PCR) Crossmatch 04/09/21 04/09/21 04/09/21 04:00 04:00 05:24 WBC 21.9 H RBC 2.70 L Hgb 7.8 L Hct 24.1 L MCH MCHC RDW 18.3 H Plt Count Lymph % (Auto) [place] # (Auto) Eos # (Auto) Seg Neutrophils % Lymphocytes % (Manual) Eosinophils % (Manual) Basophils % (Manual) Nucleated RBC % Seg Neutrophils # Seg Neutrophils # Man Lymphocytes # (Manual) Monocytes # (Manual) Eosinophils # (Manual) Basophils # (Manual) Percent Retic PT INR Fibrinogen D-Dimer ABG pH POC ABG pCO2 POC ABG pO2 ABG pO2 ABG HCO3 ABG O2 Saturation ABG Base Excess ABG Hemoglobin ABG Oxyhemoglobin ABG Sodium ABG Potassium ABG Chloride ABG Glucose Oxyhemoglobin Carboxyhemoglobin Sodium 131 L Potassium 6.3 H* Chloride 93.0 L Carbon Dioxide 19 L BUN 98 H Creatinine 4.6 H Glucose 208 H POC Glucose 191 H Hemoglobin A1c Calcium 8.1 L Phosphorus Magnesium AST ALT Alkaline Phosphatase Lactate Dehydrogenase C-Reactive Protein Total Protein Albumin Triglycerides Arterial Blood Glucose Arterial Blood Ionized Calcium Urine WBC (Auto) U Epithel Cells (Auto) Urine Creatinine Random Vancomycin Coronavirus (PCR) Crossmatch 04/09/21 04/09/21 04/09/21 12:42 16:59 21:00 WBC RBC Hgb Hct MCH MCHC RDW Plt Count Lymph % (Auto) [place] # (Auto) Eos # (Auto) Seg Neutrophils % Lymphocytes % (Manual) Eosinophils % (Manual) Basophils % (Manual) Nucleated RBC % Seg Neutrophils # Seg Neutrophils # Man Lymphocytes # (Manual) Monocytes # (Manual) Eosinophils # (Manual) Basophils # (Manual) Percent Retic PT INR Fibrinogen D-Dimer ABG pH 7.192 L POC ABG pCO2 63.4 H POC ABG pO2 ABG pO2 ABG HCO3 ABG O2 Saturation ABG Base Excess ABG Hemoglobin 8.7 L ABG Oxyhemoglobin 92.9 L ABG Sodium 135.1 L ABG Potassium ABG Chloride ABG Glucose 208 H Oxyhemoglobin Carboxyhemoglobin Sodium Potassium Chloride Carbon Dioxide BUN Creatinine Glucose POC Glucose 198 H 218 H Hemoglobin A1c Calcium Phosphorus Magnesium AST ALT Alkaline Phosphatase Lactate Dehydrogenase C-Reactive Protein Total Protein Albumin Triglycerides Arterial Blood Glucose 208 H Arterial Blood Ionized Calcium Urine WBC (Auto) U Epithel Cells (Auto) Urine Creatinine Random Vancomycin Coronavirus (PCR) Crossmatch 04/09/21 04/10/21 04/10/21 23:31 04:45 04:45 WBC 18.0 H RBC 2.65 L Hgb 7.4 L Hct 23.3 L MCH MCHC RDW 18.5 H Plt Count Lymph % (Auto) [place] # (Auto) Eos # (Auto) Seg Neutrophils % Lymphocytes % (Manual) Eosinophils % (Manual) Basophils % (Manual) Nucleated RBC % Seg Neutrophils # Seg Neutrophils # Man Lymphocytes # (Manual) Monocytes # (Manual) Eosinophils # (Manual) Basophils # (Manual) Percent Retic PT INR Fibrinogen D-Dimer ABG pH POC ABG pCO2 POC ABG pO2 ABG pO2 ABG HCO3 ABG O2 Saturation ABG Base Excess ABG Hemoglobin ABG Oxyhemoglobin ABG Sodium ABG Potassium ABG Chloride ABG Glucose Oxyhemoglobin Carboxyhemoglobin Sodium Potassium 5.5 H Chloride Carbon Dioxide 21 L BUN 83 H Creatinine 3.4 H Glucose 211 H POC Glucose 162 H Hemoglobin A1c Calcium Phosphorus Magnesium AST ALT Alkaline Phosphatase Lactate Dehydrogenase C-Reactive Protein Total Protein Albumin Triglycerides Arterial Blood Glucose Arterial Blood Ionized Calcium Urine WBC (Auto) U Epithel Cells (Auto) Urine Creatinine Random Vancomycin Coronavirus (PCR) Crossmatch 04/10/21 04/10/21 04/10/21 05:01 11:58 17:42 WBC RBC Hgb Hct MCH MCHC RDW Plt Count Lymph % (Auto) [place] # (Auto) Eos # (Auto) Seg Neutrophils % Lymphocytes % (Manual) Eosinophils % (Manual) Basophils % (Manual) Nucleated RBC % Seg Neutrophils # Seg Neutrophils # Man Lymphocytes # (Manual) Monocytes # (Manual) Eosinophils # (Manual) Basophils # (Manual) Percent Retic PT INR Fibrinogen D-Dimer ABG pH POC ABG pCO2 POC ABG pO2 ABG pO2 ABG HCO3 ABG O2 Saturation ABG Base Excess ABG Hemoglobin ABG Oxyhemoglobin ABG Sodium ABG Potassium ABG Chloride ABG Glucose Oxyhemoglobin Carboxyhemoglobin Sodium Potassium Chloride Carbon Dioxide BUN Creatinine Glucose POC Glucose 183 H 136 H 166 H Hemoglobin A1c Calcium Phosphorus Magnesium AST ALT Alkaline Phosphatase Lactate Dehydrogenase C-Reactive Protein Total Protein Albumin Triglycerides Arterial Blood Glucose Arterial Blood Ionized Calcium Urine WBC (Auto) U Epithel Cells (Auto) Urine Creatinine Random Vancomycin Coronavirus (PCR) Crossmatch 04/11/21 04/11/21 04/11/21 00:02 04:15 04:15 WBC 16.3 H RBC 2.53 L Hgb 7.0 L Hct 22.6 L MCH MCHC RDW 18.4 H Plt Count Lymph % (Auto) [place] # (Auto) Eos # (Auto) Seg Neutrophils % Lymphocytes % (Manual) Eosinophils % (Manual) Basophils % (Manual) Nucleated RBC % Seg Neutrophils # Seg Neutrophils # Man Lymphocytes # (Manual) Monocytes # (Manual) Eosinophils # (Manual) Basophils # (Manual) Percent Retic PT INR Fibrinogen D-Dimer ABG pH POC ABG pCO2 POC ABG pO2 ABG pO2 ABG HCO3 ABG O2 Saturation ABG Base Excess ABG Hemoglobin ABG Oxyhemoglobin ABG Sodium ABG Potassium ABG Chloride ABG Glucose Oxyhemoglobin Carboxyhemoglobin Sodium Potassium Chloride Carbon Dioxide BUN 71 H Creatinine 3.1 H Glucose 183 H POC Glucose 155 H Hemoglobin A1c Calcium Phosphorus Magnesium AST ALT Alkaline Phosphatase Lactate Dehydrogenase C-Reactive Protein Total Protein Albumin Triglycerides 406 H Arterial Blood Glucose Arterial Blood Ionized Calcium Urine WBC (Auto) U Epithel Cells (Auto) Urine Creatinine Random Vancomycin Coronavirus (PCR) Crossmatch 04/11/21 04/11/21 04/11/21 05:46 11:34 11:50 WBC RBC Hgb 6.7 L Hct 20.8 L MCH MCHC RDW Plt Count Lymph % (Auto) [place] # (Auto) Eos # (Auto) Seg Neutrophils % Lymphocytes % (Manual) Eosinophils % (Manual) Basophils % (Manual) Nucleated RBC % Seg Neutrophils # Seg Neutrophils # Man Lymphocytes # (Manual) Monocytes # (Manual) Eosinophils # (Manual) Basophils # (Manual) Percent Retic PT INR Fibrinogen D-Dimer ABG pH POC ABG pCO2 POC ABG pO2 ABG pO2 ABG HCO3 ABG O2 Saturation ABG Base Excess ABG Hemoglobin ABG Oxyhemoglobin ABG Sodium ABG Potassium ABG Chloride ABG Glucose Oxyhemoglobin Carboxyhemoglobin Sodium Potassium Chloride Carbon Dioxide BUN Creatinine Glucose POC Glucose 157 H 132 H Hemoglobin A1c Calcium Phosphorus Magnesium AST ALT Alkaline Phosphatase Lactate Dehydrogenase C-Reactive Protein Total Protein Albumin Triglycerides Arterial Blood Glucose Arterial Blood Ionized Calcium Urine WBC (Auto) U Epithel Cells (Auto) Urine Creatinine Random Vancomycin Coronavirus (PCR) Crossmatch 04/11/21 04/11/21 04/11/21 13:39 17:49 17:50 WBC RBC Hgb 6.5 L Hct 21.4 L MCH MCHC RDW Plt Count Lymph % (Auto) [place] # (Auto) Eos # (Auto) Seg Neutrophils % Lymphocytes % (Manual) Eosinophils % (Manual) Basophils % (Manual) Nucleated RBC % Seg Neutrophils # Seg Neutrophils # Man Lymphocytes # (Manual) Monocytes # (Manual) Eosinophils # (Manual) Basophils # (Manual) Percent Retic PT INR Fibrinogen D-Dimer ABG pH POC ABG pCO2 POC ABG pO2 ABG pO2 ABG HCO3 ABG O2 Saturation ABG Base Excess ABG Hemoglobin ABG Oxyhemoglobin ABG Sodium ABG Potassium ABG Chloride ABG Glucose Oxyhemoglobin Carboxyhemoglobin Sodium Potassium Chloride Carbon Dioxide BUN Creatinine Glucose POC Glucose 136 H Hemoglobin A1c Calcium Phosphorus Magnesium AST ALT Alkaline Phosphatase Lactate Dehydrogenase C-Reactive Protein Total Protein Albumin Triglycerides Arterial Blood Glucose Arterial Blood Ionized Calcium Urine WBC (Auto) U Epithel Cells (Auto) Urine Creatinine Random Vancomycin Coronavirus (PCR) Crossmatch See Detail 04/12/21 04/12/21 04/12/21 00:25 00:29 02:52 WBC RBC Hgb 7.4 L Hct 23.5 L MCH MCHC RDW Plt Count Lymph % (Auto) [place] # (Auto) Eos # (Auto) Seg Neutrophils % Lymphocytes % (Manual) Eosinophils % (Manual) Basophils % (Manual) Nucleated RBC % Seg Neutrophils # Seg Neutrophils # Man Lymphocytes # (Manual) Monocytes # (Manual) Eosinophils # (Manual) Basophils # (Manual) Percent Retic PT INR Fibrinogen D-Dimer ABG pH 7.253 L POC ABG pCO2 POC ABG pO2 ABG pO2 79.6 L ABG HCO3 ABG O2 Saturation 94.1 L ABG Base Excess -3.6 L ABG Hemoglobin 8.1 L ABG Oxyhemoglobin ABG Sodium ABG Potassium ABG Chloride ABG Glucose Oxyhemoglobin 93.6 L Carboxyhemoglobin Sodium Potassium Chloride Carbon Dioxide BUN Creatinine Glucose POC Glucose 125 H Hemoglobin A1c Calcium Phosphorus Magnesium AST ALT Alkaline Phosphatase Lactate Dehydrogenase C-Reactive Protein Total Protein Albumin Triglycerides Arterial Blood Glucose Arterial Blood Ionized Calcium Urine WBC (Auto) U Epithel Cells (Auto) Urine Creatinine Random Vancomycin Coronavirus (PCR) Crossmatch 04/12/21 04/12/21 04/12/21 04:30 04:30 05:41 WBC 17.5 H RBC 2.68 L Hgb 7.6 L Hct 24.0 L MCH MCHC RDW 18.0 H Plt Count Lymph % (Auto) [place] # (Auto) Eos # (Auto) Seg Neutrophils % Lymphocytes % (Manual) Eosinophils % (Manual) Basophils % (Manual) Nucleated RBC % Seg Neutrophils # Seg Neutrophils # Man Lymphocytes # (Manual) Monocytes # (Manual) Eosinophils # (Manual) Basophils # (Manual) Percent Retic PT INR Fibrinogen D-Dimer ABG pH POC ABG pCO2 POC ABG pO2 ABG pO2 ABG HCO3 ABG O2 Saturation ABG Base Excess ABG Hemoglobin ABG Oxyhemoglobin ABG Sodium ABG Potassium ABG Chloride ABG Glucose Oxyhemoglobin Carboxyhemoglobin Sodium Potassium Chloride Carbon Dioxide BUN 87 H Creatinine 4.5 H Glucose 136 H POC Glucose 115 H Hemoglobin A1c Calcium Phosphorus 6.50 H Magnesium AST ALT Alkaline Phosphatase Lactate Dehydrogenase C-Reactive Protein Total Protein Albumin Triglycerides Arterial Blood Glucose Arterial Blood Ionized Calcium Urine WBC (Auto) U Epithel Cells (Auto) Urine Creatinine Random Vancomycin Coronavirus (PCR) Crossmatch 04/12/21 04/12/21 04/13/21 11:57 17:19 00:24 WBC RBC Hgb Hct MCH MCHC RDW Plt Count Lymph % (Auto) [place] # (Auto) Eos # (Auto) Seg Neutrophils % Lymphocytes % (Manual) Eosinophils % (Manual) Basophils % (Manual) Nucleated RBC % Seg Neutrophils # Seg Neutrophils # Man Lymphocytes # (Manual) Monocytes # (Manual) Eosinophils # (Manual) Basophils # (Manual) Percent Retic PT INR Fibrinogen D-Dimer ABG pH POC ABG pCO2 POC ABG pO2 ABG pO2 ABG HCO3 ABG O2 Saturation ABG Base Excess ABG Hemoglobin ABG Oxyhemoglobin ABG Sodium ABG Potassium ABG Chloride ABG Glucose Oxyhemoglobin Carboxyhemoglobin Sodium Potassium Chloride Carbon Dioxide BUN Creatinine Glucose POC Glucose 137 H 177 H 188 H Hemoglobin A1c Calcium Phosphorus Magnesium AST ALT Alkaline Phosphatase Lactate Dehydrogenase C-Reactive Protein Total Protein Albumin Triglycerides Arterial Blood Glucose Arterial Blood Ionized Calcium Urine WBC (Auto) U Epithel Cells (Auto) Urine Creatinine Random Vancomycin Coronavirus (PCR) Crossmatch 04/13/21 04/13/21 04/13/21 03:52 04:44 04:44 WBC 13.1 H RBC 2.57 L Hgb 7.3 L Hct 23.2 L MCH MCHC RDW 17.6 H Plt Count 73 L Lymph % (Auto) [place] # (Auto) Eos # (Auto) Seg Neutrophils % Lymphocytes % (Manual) Eosinophils % (Manual) Basophils % (Manual) Nucleated RBC % Seg Neutrophils # Seg Neutrophils # Man Lymphocytes # (Manual) Monocytes # (Manual) Eosinophils # (Manual) Basophils # (Manual) Percent Retic PT 16.0 H INR 1.16 H Fibrinogen D-Dimer ABG pH 7.195 L* POC ABG pCO2 POC ABG pO2 ABG pO2 98.9 H ABG HCO3 ABG O2 Saturation ABG Base Excess -2.9 L ABG Hemoglobin 7.4 L ABG Oxyhemoglobin ABG Sodium ABG Potassium ABG Chloride ABG Glucose Oxyhemoglobin 94.3 L Carboxyhemoglobin Sodium Potassium Chloride Carbon Dioxide BUN Creatinine Glucose POC Glucose Hemoglobin A1c Calcium Phosphorus Magnesium AST ALT Alkaline Phosphatase Lactate Dehydrogenase C-Reactive Protein Total Protein Albumin Triglycerides Arterial Blood Glucose Arterial Blood Ionized Calcium Urine WBC (Auto) U Epithel Cells (Auto) Urine Creatinine Random Vancomycin Coronavirus (PCR) Crossmatch 04/13/21 04/13/21 04/13/21 04:44 05:26 11:32 WBC RBC Hgb Hct MCH MCHC RDW Plt Count Lymph % (Auto) [place] # (Auto) Eos # (Auto) Seg Neutrophils % Lymphocytes % (Manual) Eosinophils % (Manual) Basophils % (Manual) Nucleated RBC % Seg Neutrophils # Seg Neutrophils # Man Lymphocytes # (Manual) Monocytes # (Manual) Eosinophils # (Manual) Basophils # (Manual) Percent Retic PT INR Fibrinogen D-Dimer ABG pH POC ABG pCO2 POC ABG pO2 ABG pO2 ABG HCO3 ABG O2 Saturation ABG Base Excess ABG Hemoglobin ABG Oxyhemoglobin ABG Sodium ABG Potassium ABG Chloride ABG Glucose Oxyhemoglobin Carboxyhemoglobin Sodium Potassium Chloride Carbon Dioxide BUN 75 H Creatinine 3.8 H Glucose 183 H POC Glucose 163 H 169 H Hemoglobin A1c Calcium Phosphorus 6.80 H Magnesium AST ALT Alkaline Phosphatase Lactate Dehydrogenase C-Reactive Protein Total Protein Albumin Triglycerides Arterial Blood Glucose Arterial Blood Ionized Calcium Urine WBC (Auto) U Epithel Cells (Auto) Urine Creatinine Random Vancomycin Coronavirus (PCR) Crossmatch 04/13/21 04/13/21 04/13/21 17:28 21:00 23:28 WBC RBC Hgb Hct MCH MCHC RDW Plt Count Lymph % (Auto) [place] # (Auto) Eos # (Auto) Seg Neutrophils % Lymphocytes % (Manual) Eosinophils % (Manual) Basophils % (Manual) Nucleated RBC % Seg Neutrophils # Seg Neutrophils # Man Lymphocytes # (Manual) Monocytes # (Manual) Eosinophils # (Manual) Basophils # (Manual) Percent Retic PT INR Fibrinogen D-Dimer ABG pH POC ABG pCO2 48.6 H POC ABG pO2 ABG pO2 ABG HCO3 ABG O2 Saturation ABG Base Excess ABG Hemoglobin 8.3 L ABG Oxyhemoglobin ABG Sodium 134.6 L ABG Potassium ABG Chloride ABG Glucose 243 H Oxyhemoglobin Carboxyhemoglobin 0.4 L Sodium Potassium Chloride Carbon Dioxide BUN Creatinine Glucose POC Glucose 174 H 207 H Hemoglobin A1c Calcium Phosphorus Magnesium AST ALT Alkaline Phosphatase Lactate Dehydrogenase C-Reactive Protein Total Protein Albumin Triglycerides Arterial Blood Glucose 243 H Arterial Blood Ionized Calcium Urine WBC (Auto) U Epithel Cells (Auto) Urine Creatinine Random Vancomycin Coronavirus (PCR) Crossmatch 04/14/21 04/14/21 04/14/21 04:43 04:43 11:10 WBC 11.8 H RBC 2.58 L Hgb 7.5 L Hct 23.4 L MCH MCHC RDW 17.1 H Plt Count 45 L Lymph % (Auto) [place] # (Auto) Eos # (Auto) Seg Neutrophils % Lymphocytes % (Manual) Eosinophils % (Manual) Basophils % (Manual) Nucleated RBC % Seg Neutrophils # Seg Neutrophils # Man Lymphocytes # (Manual) Monocytes # (Manual) Eosinophils # (Manual) Basophils # (Manual) Percent Retic PT INR Fibrinogen D-Dimer ABG pH POC ABG pCO2 POC ABG pO2 ABG pO2 ABG HCO3 ABG O2 Saturation ABG Base Excess ABG Hemoglobin ABG Oxyhemoglobin ABG Sodium ABG Potassium ABG Chloride ABG Glucose Oxyhemoglobin Carboxyhemoglobin Sodium Potassium Chloride Carbon Dioxide BUN 74 H Creatinine 3.1 H Glucose 220 H POC Glucose 160 H Hemoglobin A1c Calcium Phosphorus Magnesium AST ALT Alkaline Phosphatase Lactate Dehydrogenase C-Reactive Protein Total Protein Albumin Triglycerides Arterial Blood Glucose Arterial Blood Ionized Calcium Urine WBC (Auto) U Epithel Cells (Auto) Urine Creatinine Random Vancomycin Coronavirus (PCR) Crossmatch Allied health notes reviewed: nursing
--- NOTE | 2021-04-14 15:50 | Progress Note ---
<SAMARACRISTY NancyEloisa - Last Filed: 04/14/21 15:46> Assessment and Plan Assessment and plan: This is a 31-year-old female with asthma, morbid obesity and Crohn's disease admitted for COVID-19 pneumonia and and acute renal failure Neuro: Sedated -Intubated and sedated with propofol, fentanyl, Versed -sedation to vent synchrony -Seroquel -As needed ECG for QTC monitoring -Daily SAT/SBT when appropriate -Maintain sleep-wake cycle -Avoid delirium -CT head with no acute abnormality CV: Tachycardia, s/p hypertension now with hypotension -ST on the monitor -Vasopressor support with levophed, vasopressin -Maintain MAP above 65 -Blood pressure monitoring per protocol -will attempt keesha today Respiratory: Acute hypoxic respiratory failure, asthma exacerbation, COVID-19 pneumonia, ARDS, RUL PNA, bronchospasm (resolved) -DuoNeb, steroids -Patient was intubated on 03/14 for respiratory distress and inability to protect airway with her ETT exchange on 04/11 -Intubated with 7.50 ETT at 24 at the lip -A.m. vent settings: AC/PCV rate 30, FiO2 30%, PEEP 10 -See RT notes for titration -ABGs per CCM -VAP bundle -SPO2 monitoring -CCM/pulmonary consulted, appreciate recommendations -S/p BiPAP therapy -S/p Bronc on 04/11 which showed alveolar hemorrhage GI: transaminitis, h/o MO and Crohn's disease -Nutrition consulted, appreciate recommendations -Tube feeding: Nepro -Free water 100 mL every 4 hours -BR: [place] -PPI -24 hours +2615 ml -HD removal of 1 L yesterday : Acute kidney injury likely secondary to ATN, hyperphosphatemia, hyperkalemia, hyponatremia, hypochloremia, metabolic acidosis -Nephrology consulted, appreciate recommendations -Vas-Cath placed 03/15 -HD initiated 03/15 -Daily weights -Strict intake and output -Avoid nephrotoxic medications -Renally dose medications -Trend BMP -Intervene for electrolytes as needed -HD per nephrology -s/p Bicarb gtt ID: COVID-19 pneumonia, leukocytosis, Staph aureus in tracheal aspirate, Conjunctival hemorrhage, ?HUS vs drug reaction -Infectious disease consulted, appreciate recommendations -03/14 COVID-19 PCR (+), 04/10 COVID PCR (-) -1 g of methylprednisone for 3 days (03/31 through 04/02 with taper) -Restarted on stress dose steroids on 04/10 -s/p Actemra per ID -Per ID patient is on a candidate for remdesivir due to renal failure -Patient received 1 dose of remdesivir on 03/14 -Prophylactic anticoagulation based on D-dimer -s/p Cipro/Dex drops for 5 days -Abx per ID: Levaquin, Merrem, micafungin -Trend COVID-19 inflammatory markers -Isolation/droplet precautions for 21 days -Vitamin C/vitamin D/zinc -follow culture data -Monitor WBC and fever curve -s/p plasmapheresis x2 (04/01-04/02) -LDH 509, Eliezer fibrinogen 491 -s/p Artic sun for temp regulation -given 1g solumedoral x1 for possible anaphylaxis reaction post contrast -benadryl q6 Heme: Leukocytosis, elevated D-dimer -Trend CBC -Transfuse hemoglobin less than 7 -Eliquis restarted 03/29 -SCDs to bilateral lower extremity while in bed -BLE duplex US shows no DVT -HIT negative Endo: Hyperglycemia -Hemoglobin A1c 6.3 -SSI -Accu-Cheks every 6 -Avoid hypoglycemia The high probability of a clinically significant, sudden or life threatening deterioration of the [multiple] system(s) required my full and direct attention, intervention and personal management. The aggregate critical care time was [90] minutes. This time is in addition to time spent performing reported procedures but includes the following: [x] Data Review and interpretation [x] Patient assessment and monitoring of vital signs [x] Documentation [x] Medication orders and management Disposition Plan: icu Total Time Spent with Patient (Minutes): 90 History Interval history: This is a 31-year-old female with asthma, history of prior intubation x1 in 02/2019, morbid obesity and Crohn's disease who presented to the emergency department on 03/13 with complaints of severe wheezing and shortness of breath over the past 4 days which is not relieved by home nebulizer treatments or rescue inhalers, cough without fever and no loss of sense of taste or smell. Patient is currently on vaccinated for COVID-19. In the emergency department patient was placed on BiPAP given steroids magnesium Solu-Medrol with improvement, CXR shows a streak of possible pneumonia. Patient was made a COVID-19 PUI and admitted to the hospital service. Patient was initially admitted to IMCU on BiPAP and was subsequently intubated due to severe respiratory distress and inability to protect her airway. Patient was admitted with acute hypoxic respiratory failure, acute asthma exacerbation, right upper lobe pneumonia, and as a COVID-19 PUI. Hospital Course to Date: 03/14/21- Patient is s/p intubation from this morning, sedated on propofol and fentanyl RASS -3 to -4. ETT above the clavicles advanced by 2cc. Continue nebs and IV steroids per [facility]. COVID swab pending. Hyperkalemia improved, X1 dose of kayaxalate ordered. Low BP and low urine output this am, fluid bolus challenge, 500cc of NS bolus given. Continue to monitor electrolytes and renal function, repeat BMP this afternoon. 03/15: Patient's renal function noted to be significantly worse today, patient was hyperkalemic and this was medically treated. Patient initiated on hemodialysis today. infectious disease was consulted today. 03/16: No acute events reported overnight, patient received hemodialysis yesterday. Patient is currently on propofol and fentanyl. 03/17: Patient received hemodialysis today, patient is slightly acidotic on ABG however [facility] is allowing for permissive hypercapnia, tracheal aspirate with Staph aureus and ID is aware. 03/18: Patient is having high residuals today and Reglan was started, patient will receive HD daily per nephrology, correct her change in FiO2 as tolerated. 03/19: HD per nephrology today, antibiotics changed to cefazolin. Patient did not tolerate tube feedings as she had high residuals this morning and they were turned off. Not restarted yet. Updated family at bedside today 03/20: HD today, ddimer noted to be >1000, Tolerating trickle TF. Stat BLE dopplar US 03/21: Patient is not tolerating TF, CXR shows worsening infiltrates, [facility] made changes to vent, TF on hold and started on IVF. 03/22/21- Patient remains intubated and on sedation. Persistent vomiting, TF held overnight, no documented BM, on reglan BR added, Shaun citarte & supp. HD today. Plan to restart TF at 10ml/hr, will reevaluate in the am. Persistent thrombocytopenia, Hep on hold, HIT panel ordered, PO eliquis initiated. 03/23/21- Patient remains on the vent and sedated on propofol and fentanyl RASS - 2 to -3. Possible SAT today as tolerated. Patient tolerated trickle feeds overnight, plan to advance TF by 10cc Q8 to 12hrs. Continue current BR and continue reglan for now. Slightr worsening in acidosis from this am, d/w [facility] vent setting adjusted, will repeat ABG at 9pm. 03/24/21- Patient is on the vent and sedated, on fentanyl and propfol. Bilateral subconjunctival hemorrhage with periorbital edema noted this am, pupils are round and reactive, will Cipro/Dex [id number]. Worsening of kidney function from today's labs, plan for HD per Nephro. 03/25/21- Patient remains intubated and on sedatin, RASS 0 to -1, no longer on pressors. Sudden drop in H&H this am, bilateral subconjunctival hemorrhage with no sig change, no signs of any active bleeding. Patient appears neurologically intact, following commands, pupils are round and reactive with + gag and cough, moved all extremities. D/w [facility] patient is too unstable for CT at this time. Eliquis D/Devaughn, 1unit of PRBC ordered. Will continue to trend CBC. Plan for anoth er section of HD today 03/26/21- Patient remains on the vent and sedated. VENICE reported from overnight. Plan for HD again today. H&H back up and stable, no AC at this time, SCDs for VTE phro. D/w [facility] patient is still too unstable for CT scan, will continue neuro exam and will continue to monitor H&H. 03/27/21- VENICE overnight. remains on the vent and sedated. Red localized rashes noted in patient upper chest and face, will r/o allergic reaction,CBC with auto diff and urine eosinophils ordered. Plan for HD today per Nephro. 03/28/21- Patient remains on the vent and sedated. Persistent fevers overnight unrelieved with antipyretic, currently on a cooling blanket. Back on pressors for hypotension, patient already on IV abx, last blood cultureX2 and sputum culture from 03/23 were negative. Continue IV abx, will reculture patient, orders placed for B.culture and sputum culture. ID is also on consult. will continue F/u on culture and continue to monitor BMP and CBC. 03/29: Patient restarted on prednisone given splotchy rash, will resume apixaban for VTE prophylaxis and repeat ABG at 9 PM. Remains with leukocytosis, elevated BUN/creatinine, elevated triglycerides and on Levophed 03/30: HD today, rash is still present and started on IV steroids. plt is low today but will continue to monitor. CCM made changes to vent-> decrease in MV. ABG in the pm and possible punch biopsy tomorrow if rash is not improved. propofol changed to versed 03/31: Heme/oncology consulted yesterday, will start patient on plasmapheresis for possible HUS. Cefepime discontinued today as today was the last day. Patient started on pulse dose steroids of 1 g/day for 3 days. Some improvement noted to eyes this morning. Patient was febrile overnight and received ibuprofen overnight. Acetaminophen allergy confirmed with family, allergy is only to oxycodone and hydrocodone but not the acetaminophen component. Confirmed by family patient has no reaction to [id number] Tylenol. Remains on vasopressor support and sedated with fentanyl, propofol and Versed. Vent mode changed to pressure control ventilation. Patient started on Arctic sun for fever control. Mother updated over telephone this a.m. and this p.m. family meeting held with her mother, sister x 2 and brother and with 2 other unknown people over the phone (1 female and one male) and nurse. Family states that patient is likely to an antibiotic possibly penicillins. This information was not available to us before. 04/01: Hyperkalemia medically treated, patient scheduled for dialysis today, plasmapheresis for possible HUS scheduled for today, steroids should be ending tomorrow, generalized rash/discoloration minimally better. Patient still remains on Arctic sun for temperature regulation. Vent changes per [facility]. 04/02: plasma exchange, tessa on sedatives and vasopressor support, HD for ultrafiltration 04/03: remains on artic sun but water temp noted to be in the 30s today. Completed plasmapheresis x2 and is now on steroid taper however minimal change noted to rash/discoloration. Eyes are more clear today but remain red under lids (tops of eye). Acidosis noted on ABG. Hyperkalemia and hyperphosphatemeia persists. Sedation increased for RR in to the 40s-50s and vasopressors being titrated as tolerated. 04/04: Patient receiving 1 unit PRBC per heme's recommendation, increased respiratory effort noted, patient is acidotic on ABG and given 1 amp of bicarb in addition to bicarb drip, sedation increased for vent synchrony. No HD per nephrology given tachycardia. Seroquel started. 04/05: Patient on the vent and sedated, still on 3 pressors. Patient to wean off propofol gtt, seroquel increased. Patient afebrile overnight, however artic sun is still in place. Will attempt to take off the cooling blanket today, will continue to assess for fever curve. Continue current IV Abx therapy per ID. Plan for HD today per Nephro. Patient's family at the bedside, thoroughly discussed patient's condition and overall poor prognosis. All questions and concerns were addressed. Team will continue to f/u with family with further updates. 04/06: Patient remains sedated and on the vent, still on fent and versed, prop ofol was weaned off. Low Hbg this am, 2 units of PRBCs ordered. Patient febrile overnight, patient completed IV abx course, leukocytosis downtrending. c/f for possible drug fever vs DVT, BLE doppler reordered to R/O DVT. Patient remains on high dose pressors, wean pressors as tolerated for MAP of 65. 04/07: Patient appears to be in distress thi am, tachypneic and tachycardic, with increased work of breathing. Propofol stopped this am. IV push versed given and versed gtt was increased to max. D/w CCM plan to possibly restart propofol since patient is not tolerating sedation wean. Patient remains febrile throughout, pancultured yesterday by ID and IV abx was restarted. Overall poor prognosis at this time. Patient's mother and siblings at the bedside were update on patient's status. Plan for possible family meeting with the care team Monday. 04/08: Patient with worsening CXR this am, increased of vent setting overnight, respiratory acidosis from this am ABG. Patient remains febrile, IV ABx switched to Merrem for VAP coverage, ID is following. Patient remains on sedation and on pressors. Low hemoglobin this am, 1unit of PRBCs ordered. Hyperkalemia noted, per Nephro it is stable no intervention at this time plan for HD tomorrow. Spoke with patient's mom, meeting postponed for possibly next week, case management to arrange. Hospitalist also called and updated patient's mother. Team will continue to follow up. 04/09: Patient condition remains unchanged, on the vent, on sedation, and on 2 pressors. Still febrile, on IV Abx, X1 set of fungal blood culture ordered. D/w ID recommended to start micafungin 100mg Qday. Hyperkalemic this am, plan for HD today. 04/10: VENICE overnight. Patient remains on the vent and sedated. Afebrile overnight, stress steroids added, pressors requirement is going down. HD overnight 3L out, plan for HD again today. Continue IV Abx and antifungal, F/u on culture data. 04/11: Patient remains on the vent and sedated, on minimal pressors this am. Tachycardic HR in the 130-140s this am. Per RN 4L out in HD yesterday, X1 dose of 25% Albumin given. Bloody drainage with clots also noted from patient nose, mouth, and ETT, Hbg 7 this am. Will hold AC for now, serial H&H ordered, transfuse if Hbg less than 7. 04/12: Patient was able to get HD today, Levaquin was stopped by ID. Consider CT chest/abdomen/pelvis when feasible per ID. Patient remains tachycardic. Was febrile most of the day however temperature decreased with icing and tylenol. 04/13: Patient had a CT chest, abdomen/pelvis with oral contrast and CT head today. Patient received 1 unit PRBC today given down trending of H/H with continual bloody drainage from mouth/nose. Patient will receive hemodialysis today. Patient started on Benadryl every 6, received 1 g of Solu-Medrol x1 for apparent angioedema post CT with contrast. 04/14: family meeting today with Dr. Noble. Continue supportive care. Thrombocytopenia today and given 1 units platelets. Vasopressors where weaned off overnight but restarted this morning for low maps. Will consider trach/peg next week with lower vent settings. Hospitalist Physical - Constitutional Vitals: Temp Pulse Resp BP Pulse Ox 99.3 F 117 H 13 106/40 99 04/14/21 14:46 04/14/21 15:12 04/14/21 14:46 04/14/21 15:12 04/14/21 15:12 General appearance: Present: no acute distress, well-nourished, obese, other (Intubated and sedated) - EENT Eyes: Present: PERRL, EOM intact ENT: hearing intact, clear oral mucosa, dentition normal - Neck Neck: Present: normal ROM - Respiratory Respiratory effort: normal Respiratory: bilateral: diminished - Cardiovascular Rhythm: regular Heart Sounds: Present: S1 & S2. Absent: systolic murmur, diastolic murmur - Extremities Extremities: no ischemia, pulses intact, pulses symmetrical Extremity abnormal: edema, ulceration, erythema, other (dry/peeling) Peripheral Pulses: within normal limits - Abdominal General gastrointestinal: soft, non-tender, non-distended, normal bowel sounds - Integumentary Integumentary: Present: dry (s) - Psychiatric Psychiatric: other (sedated) - Neurologic Neurologic: other (sedated) - Allied Health Allied health notes reviewed: nursing, RT, social work Results - Labs CBC & Chem 7: 04/14/21 04:43 04/14/21 04:43 Labs: Laboratory Last Values WBC 11.8 K/mm3 (4.5-11.0) H 04/14/21 04:43 RBC 2.58 M/mm3 (3.65-5.03) L 04/14/21 04:43 Hgb 7.5 gm/dl (10.1-14.3) L 04/14/21 04:43 Hct 23.4 % (30.3-42.9) L 04/14/21 04:43 MCV 91 fl (79-97) 04/14/21 04:43 MCH 29 pg (28-32) 04/14/21 04:43 MCHC 32 % (30-34) 04/14/21 04:43 RDW 17.1 % (13.2-15.2) H 04/14/21 04:43 Plt Count 45 K/mm3 (140-440) L 04/14/21 04:43 Lymph % (Auto) 10.7 % (13.4-35.0) L 03/28/21 09:37 [place] % (Auto) 5.2 % (0.0-7.3) 03/28/21 09:37 Eos % (Auto) Tile Sprayer 04/07/21 03:50 Baso % (Auto) 0.2 % (0.0-1.8) 03/28/21 09:37 Lymph # (Auto) 1.7 K/mm3 (1.2-5.4) 03/28/21 09:37 [place] # (Auto) 0.9 K/mm3 (0.0-0.8) H 03/28/21 09:37 Eos # (Auto) 0.6 K/mm3 (0.0-0.4) H 03/28/21 09:37 Baso # (Auto) 0.0 K/mm3 (0.0-0.1) 03/28/21 09:37 Add Manual Diff Complete 04/07/21 03:50 Total Counted 100 04/07/21 03:50 Seg Neutrophils % 80.0 % (40.0-70.0) H 03/28/21 09:37 Seg Neuts % (Manual) 67.0 % (40.0-70.0) 04/07/21 03:50 Lymphocytes % (Manual) 10.0 % (13.4-35.0) L 04/07/21 03:50 Monocytes % (Manual) 4.0 % (0.0-7.3) 04/07/21 03:50 Eosinophils % (Manual) 19.0 % (0.0-4.3) H 04/07/21 03:50 Basophils % (Manual) 2.0 % (0.0-1.8) H 04/03/21 04:30 Nucleated RBC % 2.0 % (0.0-0.9) H 04/07/21 03:50 Seg Neutrophils # 13.0 K/mm3 (1.8-7.7) H 03/28/21 09:37 Seg Neutrophils # Man 17.9 K/mm3 (1.8-7.7) H 04/07/21 03:50 Band Neutrophils # 0.0 K/mm3 04/07/21 03:50 Lymphocytes # (Manual) 2.7 K/mm3 (1.2-5.4) 04/07/21 03:50 Abs React Lymphs (Man) 0.0 K/mm3 04/07/21 03:50 Monocytes # (Manual) 1.1 K/mm3 (0.0-0.8) H 04/07/21 03:50 Eosinophils # (Manual) 5.1 K/mm3 (0.0-0.4) H 04/07/21 03:50 Basophils # (Manual) 0.0 K/mm3 (0.0-0.1) 04/07/21 03:50 Metamyelocytes # 0.0 K/mm3 04/07/21 03:50 Myelocytes # 0.0 K/mm3 04/07/21 03:50 Promyelocytes # 0.0 K/mm3 04/07/21 03:50 Blast Cells # 0.0 K/mm3 04/07/21 03:50 WBC Morphology Not Reportable 04/07/21 03:50 Hypersegmented Neuts Not Reportable 04/07/21 03:50 Hyposegmented Neuts Not Reportable 04/07/21 03:50 Hypogranular Neuts Not Reportable 04/07/21 03:50 Smudge Cells Not Reportable 04/07/21 03:50 Toxic Granulation Not Reportable 04/07/21 03:50 Toxic Vacuolation Not Reportable 04/07/21 03:50 Dohle Bodies Not Reportable 04/07/21 03:50 Pelger-Huet Anomaly Not Reportable 04/07/21 03:50 Bridgette Rods Not Reportable 04/07/21 03:50 Platelet Estimate Consistent w auto 04/07/21 03:50 Clumped Platelets Not Reportable 04/07/21 03:50 Plt Clumps, EDTA Not Reportable 04/07/21 03:50 Large Platelets Not Reportable 04/07/21 03:50 Giant Platelets Not Reportable 04/07/21 03:50 Platelet Satelliting Not Reportable 04/07/21 03:50 Plt Morphology Comment Not Reportable 04/07/21 03:50 RBC Morphology Not Reportable 04/07/21 03:50 Dimorphic RBCs Not Reportable 04/07/21 03:50 Polychromasia Not Reportable 04/07/21 03:50 Hypochromasia Not Reportable 04/07/21 03:50 Poikilocytosis Not Reportable 04/07/21 03:50 Anisocytosis 1+ 04/07/21 03:50 Microcytosis Not Reportable 04/07/21 03:50 Macrocytosis Not Reportable 04/07/21 03:50 Spherocytes Not Reportable 04/07/21 03:50 Pappenheimer Bodies Not Reportable 04/07/21 03:50 Sickle Cells Not Reportable 04/07/21 03:50 Target Cells 1+ 04/07/21 03:50 Tear Drop Cells Not Reportable 04/07/21 03:50 Ovalocytes Not Reportable 04/07/21 03:50 Helmet Cells Not Reportable 04/07/21 03:50 Kebede-Nokomis Bodies Not Reportable 04/07/21 03:50 [place] Rings Not Reportable 04/07/21 03:50 Magee Cells Not Reportable 04/07/21 03:50 Bite Cells Not Reportable 04/07/21 03:50 Crenated Cell Not Reportable 04/07/21 03:50 Elliptocytes Not Reportable 04/07/21 03:50 Acanthocytes (Spur) Not Reportable 04/07/21 03:50 Rouleaux Not Reportable 04/07/21 03:50 Hemoglobin C Crystals Not Reportable 04/07/21 03:50 Schistocytes Not Reportable 04/07/21 03:50 Malaria parasites Not Reportable 04/07/21 03:50 Percent Retic 4.52 % (0.78-2.58) H 03/31/21 09:49 Vaibhav Bodies Not Reportable 04/07/21 03:50 Hem Pathologist Commnt No 04/07/21 03:50 PT 16.0 Sec. (12.2-14.9) H 04/13/21 04:44 INR 1.16 (0.87-1.13) H 04/13/21 04:44 APTT 28.9 Sec. (24.2-36.6) 04/04/21 07:55 Fibrinogen 400 mg/dl (211-480) 04/14/21 09:45 D-Dimer 2696.79 ng/mlDDU (0-234) H 04/08/21 04:40 Heparin Anti-Xa, Unfract TNR 03/22/21 08:20 ABG pH 7.354 (7.320-7.450) 04/13/21 21:00 POC ABG pCO2 48.6 mmHg (32.0-48.0) H 04/13/21 21:00 ABG pCO2 68.6 mm Hg 04/13/21 03:52 POC ABG pO2 93.8 mmHg (83-108) 04/13/21 21:00 ABG pO2 98.9 mm Hg (80.0-90.0) H 04/13/21 03:52 POC ABG HCO3 26.5 04/13/21 21:00 ABG HCO3 25.5 mmol/L (20.0-26.0) 04/13/21 03:52 ABG O2 Saturation 97.0 (0-100) 04/13/21 21:00 ABG O2 Content 10.0 (0.0-44) 04/13/21 03:52 POC ABG Base Excess 0.7 04/13/21 21:00 ABG Base Excess -2.9 mmol/L (-2.0-3.0) L 04/13/21 03:52 ABG Hemoglobin 8.3 (12.0-17.5) L 04/13/21 21:00 ABG Oxyhemoglobin 96.3 (94-98) 04/13/21 21:00 ABG Carboxyhemoglobin 1.9 % (0.0-5.0) 04/13/21 03:52 ABG Methemoglobin 0.3 (0.0-1.5) 04/13/21 21:00 ABG Sodium 134.6 mmol/L (136.0-145.0) L 04/13/21 21:00 ABG Potassium 4.0 mmol/L (3.40-4.50) 04/13/21 21:00 ABG Chloride 101.0 mmol/L (98-107) 04/13/21 21:00 ABG Glucose 243 mg/dL (65-95) H 04/13/21 21:00 ABG Lactate Cancelled 04/03/21 20:45 Oxyhemoglobin 94.3 % (95.0-99.0) L 04/13/21 03:52 Carboxyhemoglobin 0.4 (0.5-1.5) L 04/13/21 21:00 FiO2 65 % 04/13/21 03:52 FiO2 % 60.0 04/13/21 21:00 Sodium 139 mmol/L (137-145) 04/14/21 04:43 Potassium 4.2 mmol/L (3.6-5.0) 04/14/21 04:43 Chloride 99.9 mmol/L (98-107) 04/14/21 04:43 Carbon Dioxide 24 mmol/L (22-30) 04/14/21 04:43 Anion Gap 19 mmol/L 04/14/21 04:43 BUN 74 mg/dL (7-17) H 04/14/21 04:43 Creatinine 3.1 mg/dL (0.6-1.2) H 04/14/21 04:43 Estimated GFR 21 ml/min 04/14/21 04:43 BUN/Creatinine Ratio 24 % 04/14/21 04:43 Glucose 220 mg/dL (65-100) H 04/14/21 04:43 POC Glucose 160 mg/dL (70-105) H 04/14/21 11:10 Hemoglobin A1c 6.3 % (4-6) H 03/15/21 05:09 Lactic Acid 0.80 mmol/L (0.7-2.0) 04/07/21 03:50 Calcium 8.4 mg/dL (8.4-10.2) 04/14/21 04:43 Phosphorus 6.80 mg/dL (2.5-4.5) H 04/13/21 04:44 Magnesium 2.10 mg/dL (1.7-2.3) 04/13/21 04:44 Ferritin 151.6 ng/mL (10.0-200.0) 03/18/21 04:30 Total Bilirubin 0.80 mg/dL (0.1-1.2) 04/07/21 04:00 Bilirubin Cancelled 04/03/21 20:45 AST 38 units/L (5-40) 04/07/21 04:00 ALT 38 units/L (7-56) 04/07/21 04:00 Alkaline Phosphatase 167 units/L (35-129) H 04/07/21 04:00 Lactate Dehydrogenase 394 units/L (91-180) H 04/05/21 05:20 C-Reactive Protein 26.10 mg/dL (0.00-1.30) H 04/08/21 04:00 Total Protein 6.6 g/dL (6.3-8.2) 04/07/21 04:00 Albumin 2.8 g/dL (3.9-5) L 04/07/21 04:00 Albumin/Globulin Ratio 0.7 % 04/07/21 04:00 Triglycerides 406 mg/dL (2-149) H 04/11/21 04:15 Serotonin Release Assay TNR 03/22/21 08:20 Procalcitonin < 0.05 ng/mL (<0.15) 03/13/21 15:40 HCG, Qual Negative (Negative) 03/13/21 13:26 Arterial Blood Glucose 243 mg/dL (65-95) H 04/13/21 21:00 Arterial Blood Ionized Calcium 4.6 mg/dL (4.6-5.3) 04/13/21 21:00 Urine Color Sweta (Yellow) 04/06/21 Unknown Urine Turbidity Cloudy (Clear) 04/06/21 Unknown Urine pH 5.0 (5.0-7.0) 04/06/21 Unknown Ur Specific [place] 1.020 (1.003-1.030) 04/06/21 Unknown Urine Protein 100 mg/dl mg/dL (Negative) 04/06/21 Unknown Urine Glucose (UA) Neg mg/dL (Negative) 04/06/21 Unknown Urine Ketones Neg mg/dL (Negative) 04/06/21 Unknown Urine Blood Mod (Negative) 04/06/21 Unknown Urine Nitrite Neg (Negative) 04/06/21 Unknown Urine Bilirubin Neg (Negative) 04/06/21 Unknown Urine Urobilinogen < 2.0 mg/dL (<2.0) 04/06/21 Unknown Ur Leukocyte Esterase Neg (Negative) 04/06/21 Unknown Urine WBC (Auto) 148.0 /HPF (0.0-6.0) H 04/06/21 Unknown Urine RBC (Auto) > 182.0 /HPF (0.0-6.0) 04/06/21 Unknown U Epithel Cells (Auto) 102.0 /HPF (0-13.0) H 04/06/21 Unknown Urine Bacteria (Auto) 1+ /HPF (Negative) 04/06/21 Unknown Ur Renal Epithelial Cell 151 /LPF 04/06/21 Unknown Urine Mucus Few /HPF 04/06/21 Unknown Urine Yeast (Budding) 3+ /HPF 04/06/21 Unknown Urine Creatinine 40.1 mg/dL (0.1-20.0) H 03/14/21 17:50 Urine Sodium 124 mmol/L 03/14/21 17:50 Random Vancomycin 13.6 ug/mL (0-40.0) 04/12/21 04:30 KIMBERLEY Screen Negative (Negative) 04/07/21 08:27 Heparin-induced Plt Ab Negative (Negative) 03/22/21 08:20 UF Heparin High Dose TNR 03/22/21 08:20 JUAN UFH Low Dose 0.1 TNR 03/22/21 08:20 JUAN UFH Low Dose 0.5 TNR 03/22/21 08:20 Coronavirus (PCR) Negative (Negative) 04/04/21 09:00 Hepatitis A IgM Ab Non-reactive (NonReactive) 03/15/21 05:09 Hep Bs Antigen Nonreactive (Negative) 03/15/21 05:09 Hep B Core IgM Ab Non-reactive (NonReactive) 03/15/21 05:09 Hepatitis C Antibody Non-reactive (NonReactive) 03/15/21 05:09 Schistocytes Smear None seen 03/31/21 12:11 Blood Type O POSITIVE 04/11/21 13:39 Antibody Screen Negative 04/11/21 13:39 Direct Antiglob Test Negative 03/31/21 23:18 NIKOLE, Poly Interpret Negative 03/31/21 23:18 Crossmatch See Detail 04/11/21 13:39 Microbiology: Microbiology 04/11/21 15:05 Bronchial Washings - Left Upper Lobe Respiratory Culture - Preliminary Enterococcus Species Bazan/IV: Voiding Method Incontinent Active Medications - Current Medications Current Medications: Generic Name Dose Route Start Last Admin Trade Name Freq PRN Reason Stop Dose Admin Acetaminophen 650 mg 03/31/21 12:41 04/13/21 07:55 Acetaminophen 325 Mg/10.15 Ml Oral Liqd Unit Dose FEEDTUBE 650 mg Q6H PRN Administration TEMP >/=100.4 Albumin Human 25 gm 04/01/21 08:19 04/01/21 16:23 Albumin Human 25% (25 Gm/100 Ml) Inj IV 25 gm KARLOS PRN Administration Hypotension Albuterol 2.5 mg 03/19/21 00:53 Albuterol 2.5 Mg/3 Ml Nebu IH Q4HRT PRN Shortness Of Breath Albuterol/Ipratropium 1 ampul 03/19/21 08:00 04/14/21 13:54 Ipratropium/Albuterol Sulfate 3 Ml Ampul.Neb IH Not Given Q6HRT INESSA Lipase/Protease/Amylase 1 each 04/09/21 17:17 Lipase 10,500/Protease 25,000/Amylase 43,750 (Units) Dr Cap FEEDTUBE PRN PRN For Clogged Feeding Tube Ascorbic Acid 500 mg 03/14/21 22:00 04/14/21 09:08 Ascorbic Acid 500 Mg Tab PO 500 mg BID INESSA Administration Calcium Acetate 1,334 mg 04/03/21 20:00 04/14/21 13:43 Calcium Acetate 667 Mg Cap FEEDTUBE 1,334 mg TID INESSA Administration Dextrose 50 ml 03/14/21 11:02 03/15/21 11:40 Dextrose 50% In Water (25gm) 50 Ml Syringe IV 50 ml Q30MIN PRN Administration Hypoglycemia Protocol Diphenhydramine HCl 50 mg 04/13/21 18:00 04/14/21 11:23 Diphenhydramine 50 Mg/Ml Vial IV 04/14/21 18:01 50 mg Q6HR INESSA Administration Famotidine 10 mg 03/17/21 22:00 04/14/21 09:08 Famotidine 10 Mg Tab PO 10 mg BID INESSA Administration Fentanyl 50 mcg 03/15/21 10:43 04/05/21 21:32 Fentanyl 100 Mcg/2 Ml Inj IV 50 mcg Q10MIN PRN Administration ANALGESIA Hydrocortisone Sodium Succinate 100 mg 04/10/21 00:00 04/14/21 15:44 Hydrocortisone Sod Succ 100 Mg/2 Ml Vial IV 100 mg Q8H INESSA Administration Hydrophilic Ointment 1 applic 03/14/21 17:50 Lip Therapy Vaseline TP Q2HR PRN Dry Lips Fentanyl Citrate 2,000 mcg in 100 mls @ 6.872 mls/hr 03/15/21 11:00 04/14/21 15:46 Fentanyl Drip Premix IV 4 mcg/kg/hr TITR INESSA 27.488 mls/hr Administration Protocol 1 MCG/KG/HR Sodium Chloride 500 mls @ 1 mls/hr 03/16/21 17:19 Nacl 0.9% 500 Ml IV DIRECT PRN ARTERIAL LINE FLUSH Midazolam HCl 100 mg/ Sodium 100 mls @ 1 mls/hr 03/30/21 15:00 04/14/21 11:25 Chloride IV 5 mg/hr TITR INESSA 5 mls/hr Administration Protocol 1 MG/HR Vasopressin 20 unit/ Sodium 101 mls @ 9.09 mls/hr 03/30/21 20:00 04/14/21 11:25 Chloride IV 0.03 units/min TITR INESSA 9.09 mls/hr Administration 0.03 UNITS/MIN Phenylephrine HCl 100 mg/ 100 mls @ 3 mls/hr 03/31/21 04:00 04/06/21 07:58 Sodium Chloride IV 0 mcg/min TITR INESSA 0 mls/hr Titration Protocol 50 MCG/MIN Sodium Chloride 100 mls @ 999 mls/hr 04/01/21 08:19 Nacl 0.9% IV KAROLS PRN Hypotension Propofol 1,000 mg in 100 mls @ 4.26 mls/hr 04/07/21 13:00 04/12/21 12:52 Diprivan 10 Mg/Ml IV 0 mcg/kg/min TITR INESSA 0 mls/hr Titration Protocol 5 MCG/KG/MIN Micafungin Sodium 100 mg/ 100 mls @ 100 mls/hr 04/09/21 17:00 04/13/21 22:23 Sodium Chloride IV Not Given Q24H INESSA Protocol Norepinephrine 8 mg/ Sodium 8 mg in 258 mls @ 3.87 mls/hr 04/12/21 04:00 04/14/21 11:50 Chloride IV 10 mcg/min TITRATE INESSA 19.35 mls/hr Titration Protocol 2 MCG/MIN MEROPENEM/NS 1 GRAM/100 ML 1 gram in 100 mls @ 100 mls/hr 04/12/21 22:00 04/13/21 22:16 Merrem/Ns 1 Gram/100 Ml IV 100 mls/hr Q24H INESSA Administration Protocol Sodium Chloride 500 mls @ 0 mls/hr 04/14/21 08:37 Nacl 0.9% 500 Ml IV 04/14/21 23:59 ONCE NR As Directed Insulin Human Lispro 0 unit 03/14/21 12:00 04/14/21 11:23 Insulin Lispro 100 Unit/Ml SUB-Q 3 unit Q6HR INESSA Administration Protocol Lorazepam 1 mg 03/13/21 19:40 03/30/21 19:58 Lorazepam 2 Mg/Ml Vial IV 1 mg Q4H PRN Administration Anxiety Multi-Ingred Cream/Lotion/Oil/Oint 1 applic 03/14/21 17:50 04/10/21 22:03 Mineral Oil/Petrolatum, White Ophth Oint 3.5 Gm OU 1 applic Q4HR PRN Administration Dry Eye(s) Ondansetron HCl 4 mg 03/13/21 19:30 03/21/21 12:05 Ondansetron 4 Mg/2 Ml Inj IV 4 mg Q8H PRN Administration Nausea And Vomiting Quetiapine Fumarate 300 mg 04/06/21 22:00 04/14/21 09:08 Quetiapine 100 Mg Tab PO 300 mg BID INESSA Administration Senna/Docusate Sodium 1 tab 03/14/21 22:00 04/14/21 09:09 Sennosides/Docusate Sodium 8.6/50 Mg Tab FEEDTUBE Not Given BID INESSA Simple Syrup 15 ml 04/09/21 17:17 Simple Syrup 15 Ml FEEDTUBE PRN PRN Hypoglycemia Simple Syrup 30 ml 04/09/21 17:17 Simple Syrup 15 Ml FEEDTUBE PRN PRN Hypoglycemia Sodium Bicarbonate 325 mg 04/09/21 17:17 Sodium Bicarbonate 325 Mg Tab FEEDTUBE PRN PRN For Clogged Feeding Tube Sodium Chloride 10 ml 03/13/21 22:00 04/14/21 09:09 Sodium Chloride 0.9% 10 Ml Flush Syringe IV 10 ml BID INESSA Administration Sodium Chloride 10 ml 03/13/21 19:30 Sodium Chloride 0.9% 10 Ml Flush Syringe IV PRN PRN LINE FLUSH Zinc Sulfate 220 mg 03/14/21 22:00 04/14/21 09:08 Zinc Sulfate 220 Mg Cap PO 220 mg BID INESSA Administration Nutrition/Malnutrition Assess - Dietary Evaluation Nutrition/Malnutrition Findings: Nutrition Notes Start: 03/15/21 11:06 Freq: Status: Active Protocol: Document 04/14/21 11:13 CANDACE (Rec: 04/14/21 11:52 CANDACE [id number]) Nutrition Notes Initial or Follow up Reassessment Other Pertinent Diagnosis [id number], Transaminitis, Hyperglycemia. Current Diet TF -Glucerna 1.2 Abdullahi (since L 04/14). Labs/Tests 04/14: BUN 74, Crea 3.1, Glu 220. Pertinent Medications 04/14 Vit C, D50w (25 g) mEq, Insulin, Zn, Propofol 1,000 mg /100 ml @ 4.26 ml/hr, others nutritionally unremarkable. Height 5 ft 5 in Weight 142 kg [place] Body Weight (kg) 56.81 BMI 52.0 Weight change and time frame No new reports on body weight changes, Weight Status Morbidly Obese Subjective/Other Information RD consult on change TF from Nepro w/CARBSTEADY to Glucerna 1,2 Abdullahi, due to lack of stock Nepro. Percent of energy/protein needs met: 100% Kcal; 85% AA. Burn Absent Trauma Absent GI Symptoms None Food Allergy No Skin Integrity/Comment Clear, warm, dry. Current % PO Other Minimum of two criteria No Is patient on ventilator? Yes Is Patient Ambulatory and/or Out of Bed No REE-([facility] [place]-confined to bed) 2570.232 Kcal/Kg value to use for calculation 14 Approximate Energy Requirements Using 1988 kcal/Kg Calculation Used for Recommendations Kcal/kg Additional Notes Pro needs >1.2g/kg adjBW: > 117g/day Fluid needs 1-1.5L/day Nutrition Intervention Nutrition Support: Change to Glucerna 1.2 Abdullahi @ 69 ml/hr. Flush: 109 ml water Q 4 hr. Kcal 1,988 Protein (gm) 99 Carbohydrates (gm) 190 Fat (gm) 99 Fluid (mL) 1,334 Fiber (gm) 27 % RDI: 100% Kcal; 85% AA. Goal #1 Maintain body weight within +/ -3% of admission BWt during LOS. Goal #2 Reach and maintain acceptable chemistry lab values during LOS. Follow-Up By: 04/16/21 Additional Comments Continue monitoring TF tolerance, Hydration, and BM. <SAURABH ALBRECHT - Last Filed: 04/15/21 07:14> Assessment and Plan Assessment and plan: I saw and evaluated the patient. Discussed with the nurse practitioner and agree with their findings and plan as documented in this note. Hospitalist Physical - Constitutional Vitals: Temp Pulse Resp BP Pulse Ox 102.0 F H 137 H 20 140/76 100 04/15/21 04:00 04/15/21 06:00 04/15/21 06:00 04/15/21 06:00 04/15/21 06:00 Results - Labs CBC & Chem 7: 04/15/21 Unknown 04/15/21 Unknown Labs: Laboratory Last Values WBC 11.8 K/mm3 (4.5-11.0) H 04/15/21 Unknown RBC 2.41 M/mm3 (3.65-5.03) L 04/15/21 Unknown Hgb 7.1 gm/dl (10.1-14.3) L 04/15/21 Unknown Hct 22.4 % (30.3-42.9) L 04/15/21 Unknown MCV 93 fl (79-97) 04/15/21 Unknown MCH 29 pg (28-32) 04/15/21 Unknown MCHC 32 % (30-34) 04/15/21 Unknown RDW 17.0 % (13.2-15.2) H 04/15/21 Unknown Plt Count 38 K/mm3 (140-440) L 04/15/21 Unknown Lymph % (Auto) 10.7 % (13.4-35.0) L 03/28/21 09:37 [place] % (Auto) 5.2 % (0.0-7.3) 03/28/21 09:37 Eos % (Auto) Tile Sprayer 04/07/21 03:50 Baso % (Auto) 0.2 % (0.0-1.8) 03/28/21 09:37 Lymph # (Auto) 1.7 K/mm3 (1.2-5.4) 03/28/21 09:37 [place] # (Auto) 0.9 K/mm3 (0.0-0.8) H 03/28/21 09:37 Eos # (Auto) 0.6 K/mm3 (0.0-0.4) H 03/28/21 09:37 Baso # (Auto) 0.0 K/mm3 (0.0-0.1) 03/28/21 09:37 Add Manual Diff Complete 04/07/21 03:50 Total Counted 100 04/07/21 03:50 Seg Neutrophils % 80.0 % (40.0-70.0) H 03/28/21 09:37 Seg Neuts % (Manual) 67.0 % (40.0-70.0) 04/07/21 03:50 Lymphocytes % (Manual) 10.0 % (13.4-35.0) L 04/07/21 03:50 Monocytes % (Manual) 4.0 % (0.0-7.3) 04/07/21 03:50 Eosinophils % (Manual) 19.0 % (0.0-4.3) H 04/07/21 03:50 Basophils % (Manual) 2.0 % (0.0-1.8) H 04/03/21 04:30 Nucleated RBC % 2.0 % (0.0-0.9) H 04/07/21 03:50 Seg Neutrophils # 13.0 K/mm3 (1.8-7.7) H 03/28/21 09:37 Seg Neutrophils # Man 17.9 K/mm3 (1.8-7.7) H 04/07/21 03:50 Band Neutrophils # 0.0 K/mm3 04/07/21 03:50 Lymphocytes # (Manual) 2.7 K/mm3 (1.2-5.4) 04/07/21 03:50 Abs React Lymphs (Man) 0.0 K/mm3 04/07/21 03:50 Monocytes # (Manual) 1.1 K/mm3 (0.0-0.8) H 04/07/21 03:50 Eosinophils # (Manual) 5.1 K/mm3 (0.0-0.4) H 04/07/21 03:50 Basophils # (Manual) 0.0 K/mm3 (0.0-0.1) 04/07/21 03:50 Metamyelocytes # 0.0 K/mm3 04/07/21 03:50 Myelocytes # 0.0 K/mm3 04/07/21 03:50 Promyelocytes # 0.0 K/mm3 04/07/21 03:50 Blast Cells # 0.0 K/mm3 04/07/21 03:50 WBC Morphology Not Reportable 04/07/21 03:50 Hypersegmented Neuts Not Reportable 04/07/21 03:50 Hyposegmented Neuts Not Reportable 04/07/21 03:50 Hypogranular Neuts Not Reportable 04/07/21 03:50 Smudge Cells Not Reportable 04/07/21 03:50 Toxic Granulation Not Reportable 04/07/21 03:50 Toxic Vacuolation Not Reportable 04/07/21 03:50 Dohle Bodies Not Reportable 04/07/21 03:50 Pelger-Huet Anomaly Not Reportable 04/07/21 03:50 Bridgette Rods Not Reportable 04/07/21 03:50 Platelet Estimate Consistent w auto 04/07/21 03:50 Clumped Platelets Not Reportable 04/07/21 03:50 Plt Clumps, EDTA Not Reportable 04/07/21 03:50 Large Platelets Not Reportable 04/07/21 03:50 Giant Platelets Not Reportable 04/07/21 03:50 Platelet Satelliting Not Reportable 04/07/21 03:50 Plt Morphology Comment Not Reportable 04/07/21 03:50 RBC Morphology Not Reportable 04/07/21 03:50 Dimorphic RBCs Not Reportable 04/07/21 03:50 Polychromasia Not Reportable 04/07/21 03:50 Hypochromasia Not Reportable 04/07/21 03:50 Poikilocytosis Not Reportable 04/07/21 03:50 Anisocytosis 1+ 04/07/21 03:50 Microcytosis Not Reportable 04/07/21 03:50 Macrocytosis Not Reportable 04/07/21 03:50 Spherocytes Not Reportable 04/07/21 03:50 Pappenheimer Bodies Not Reportable 04/07/21 03:50 Sickle Cells Not Reportable 04/07/21 03:50 Target Cells 1+ 04/07/21 03:50 Tear Drop Cells Not Reportable 04/07/21 03:50 Ovalocytes Not Reportable 04/07/21 03:50 Helmet Cells Not Reportable 04/07/21 03:50 Kebede-Nokomis Bodies Not Reportable 04/07/21 03:50 K[place]us Rings Not Reportable 04/07/21 03:50 Balaji Cells Not Reportable 04/07/21 03:50 Bite Cells Not Reportable 04/07/21 03:50 Crenated Cell Not Reportable 04/07/21 03:50 Elliptocytes Not Reportable 04/07/21 03:50 Acanthocytes (Spur) Not Reportable 04/07/21 03:50 Rouleaux Not Reportable 04/07/21 03:50 Hemoglobin C Crystals Not Reportable 04/07/21 03:50 Schistocytes Not Reportable 04/07/21 03:50 Malaria parasites Not Reportable 04/07/21 03:50 Percent Retic 4.52 % (0.78-2.58) H 03/31/21 09:49 Vaibhav Bodies Not Reportable 04/07/21 03:50 Hem Pathologist Commnt No 04/07/21 03:50 PT 16.3 Sec. (12.2-14.9) H 04/15/21 Unknown INR 1.18 (0.87-1.13) H 04/15/21 Unknown APTT 28.9 Sec. (24.2-36.6) 04/04/21 07:55 Fibrinogen 400 mg/dl (211-480) 04/14/21 09:45 D-Dimer 2696.79 ng/mlDDU (0-234) H 04/08/21 04:40 Heparin Anti-Xa, Unfract TNR 03/22/21 08:20 ABG pH 7.207 (7.320-7.450) L 04/14/21 21:00 POC ABG pCO2 67.6 mmHg (32.0-48.0) H 04/14/21 21:00 ABG pCO2 68.6 mm Hg 04/13/21 03:52 POC ABG pO2 143.7 mmHg (83-108) H 04/14/21 21:00 ABG pO2 98.9 mm Hg (80.0-90.0) H 04/13/21 03:52 POC ABG HCO3 26.2 04/14/21 21:00 ABG HCO3 25.5 mmol/L (20.0-26.0) 04/13/21 03:52 ABG O2 Saturation 98.8 (0-100) 04/14/21 21:00 ABG O2 Content 10.0 (0.0-44) 04/13/21 03:52 POC ABG Base Excess -1.9 04/14/21 21:00 ABG Base Excess -2.9 mmol/L (-2.0-3.0) L 04/13/21 03:52 ABG Hemoglobin 7.6 (12.0-17.5) L 04/14/21 21:00 ABG Oxyhemoglobin 97.6 (94-98) 04/14/21 21:00 ABG Carboxyhemoglobin 1.9 % (0.0-5.0) 04/13/21 03:52 ABG Methemoglobin 0.1 (0.0-1.5) 04/14/21 21:00 ABG Sodium 133.8 mmol/L (136.0-145.0) L 04/14/21 21:00 ABG Potassium 4.0 mmol/L (3.40-4.50) 04/14/21 21:00 ABG Chloride 101.0 mmol/L (98-107) 04/14/21 21:00 ABG Glucose 158 mg/dL (65-95) H 04/14/21 21:00 ABG Lactate Cancelled 04/03/21 20:45 Oxyhemoglobin 94.3 % (95.0-99.0) L 04/13/21 03:52 Carboxyhemoglobin 1.1 (0.5-1.5) 04/14/21 21:00 FiO2 65 % 04/13/21 03:52 FiO2 % 80.0 04/14/21 21:00 Sodium 137 mmol/L (137-145) 04/15/21 Unknown Potassium 4.3 mmol/L (3.6-5.0) 04/15/21 Unknown Chloride 98.5 mmol/L (98-107) 04/15/21 Unknown Carbon Dioxide 24 mmol/L (22-30) 04/15/21 Unknown Anion Gap 19 mmol/L 04/15/21 Unknown BUN 67 mg/dL (7-17) H 04/15/21 Unknown Creatinine 3.3 mg/dL (0.6-1.2) H 04/15/21 Unknown Estimated GFR 20 ml/min 04/15/21 Unknown BUN/Creatinine Ratio 20 % 04/15/21 Unknown Glucose 155 mg/dL (65-100) H 04/15/21 Unknown POC Glucose 147 mg/dL (70-105) H 04/14/21 23:53 Hemoglobin A1c 6.3 % (4-6) H 03/15/21 05:09 Lactic Acid 0.80 mmol/L (0.7-2.0) 04/07/21 03:50 Calcium 8.3 mg/dL (8.4-10.2) L 04/15/21 Unknown Phosphorus 5.70 mg/dL (2.5-4.5) H 04/15/21 Unknown Magnesium 1.90 mg/dL (1.7-2.3) 04/15/21 Unknown Ferritin 151.6 ng/mL (10.0-200.0) 03/18/21 04:30 Total Bilirubin 0.40 mg/dL (0.1-1.2) 04/15/21 Unknown Bilirubin Cancelled 04/03/21 20:45 AST 85 units/L (5-40) H 04/15/21 Unknown ALT 63 units/L (7-56) H 04/15/21 Unknown Alkaline Phosphatase 94 units/L (35-129) 04/15/21 Unknown Lactate Dehydrogenase 394 units/L (91-180) H 04/05/21 05:20 C-Reactive Protein 26.10 mg/dL (0.00-1.30) H 04/08/21 04:00 Total Protein 6.3 g/dL (6.3-8.2) 04/15/21 Unknown Albumin 2.4 g/dL (3.9-5) L 04/15/21 Unknown Albumin/Globulin Ratio 0.6 % 04/15/21 Unknown Triglycerides 406 mg/dL (2-149) H 04/11/21 04:15 Serotonin Release Assay TNR 03/22/21 08:20 Procalcitonin < 0.05 ng/mL (<0.15) 03/13/21 15:40 HCG, Qual Negative (Negative) 03/13/21 13:26 Arterial Blood Glucose 158 mg/dL (65-95) H 04/14/21 21:00 Arterial Blood Ionized Calcium 4.7 mg/dL (4.6-5.3) 04/14/21 21:00 Urine Color Sweta (Yellow) 04/06/21 Unknown Urine Turbidity Cloudy (Clear) 04/06/21 Unknown Urine pH 5.0 (5.0-7.0) 04/06/21 Unknown Ur Specific [place] 1.020 (1.003-1.030) 04/06/21 Unknown Urine Protein 100 mg/dl mg/dL (Negative) 04/06/21 Unknown Urine Glucose (UA) Neg mg/dL (Negative) 04/06/21 Unknown Urine Ketones Neg mg/dL (Negative) 04/06/21 Unknown Urine Blood Mod (Negative) 04/06/21 Unknown Urine Nitrite Neg (Negative) 04/06/21 Unknown Urine Bilirubin Neg (Negative) 04/06/21 Unknown Urine Urobilinogen < 2.0 mg/dL (<2.0) 04/06/21 Unknown Ur Leukocyte Esterase Neg (Negative) 04/06/21 Unknown Urine WBC (Auto) 148.0 /HPF (0.0-6.0) H 04/06/21 Unknown Urine RBC (Auto) > 182.0 /HPF (0.0-6.0) 04/06/21 Unknown U Epithel Cells (Auto) 102.0 /HPF (0-13.0) H 04/06/21 Unknown Urine Bacteria (Auto) 1+ /HPF (Negative) 04/06/21 Unknown Ur Renal Epithelial Cell 151 /LPF 04/06/21 Unknown Urine Mucus Few /HPF 04/06/21 Unknown Urine Yeast (Budding) 3+ /HPF 04/06/21 Unknown Urine Creatinine 40.1 mg/dL (0.1-20.0) H 03/14/21 17:50 Urine Sodium 124 mmol/L 03/14/21 17:50 Random Vancomycin 13.6 ug/mL (0-40.0) 04/12/21 04:30 KIMBERLEY Screen Negative (Negative) 04/07/21 08:27 Heparin-induced Plt Ab Negative (Negative) 03/22/21 08:20 UF Heparin High Dose TNR 03/22/21 08:20 JUAN UFH Low Dose 0.1 TNR 03/22/21 08:20 JUAN UFH Low Dose 0.5 TNR 03/22/21 08:20 Coronavirus (PCR) Negative (Negative) 04/04/21 09:00 Hepatitis A IgM Ab Non-reactive (NonReactive) 03/15/21 05:09 Hep Bs Antigen Nonreactive (Negative) 03/15/21 05:09 Hep B Core IgM Ab Non-reactive (NonReactive) 03/15/21 05:09 Hepatitis C Antibody Non-reactive (NonReactive) 03/15/21 05:09 Schistocytes Smear None seen 03/31/21 12:11 Blood Type O POSITIVE 04/11/21 13:39 Antibody Screen Negative 04/11/21 13:39 Direct Antiglob Test Negative 03/31/21 23:18 NIKOLE, Poly Interpret Negative 03/31/21 23:18 Crossmatch See Detail 04/11/21 13:39 Microbiology: Microbiology 04/11/21 15:05 Bronchial Washings - Left Upper Lobe Respiratory Culture - Preliminary Enterococcus Species Bazan/IV: Voiding Method Incontinent Active Medications - Current Medications Current Medications: Generic Name Dose Route Start Last Admin Trade Name Freq PRN Reason Stop Dose Admin Acetaminophen 650 mg 03/31/21 12:41 04/15/21 05:55 Acetaminophen 325 Mg/10.15 Ml Oral Liqd Unit Dose FEEDTUBE 650 mg Q6H PRN Administration TEMP >/=100.4 Albumin Human 25 gm 04/01/21 08:19 04/01/21 16:23 Albumin Human 25% (25 Gm/100 Ml) Inj IV 25 gm KARLOS PRN Administration Hypotension Albuterol 2.5 mg 03/19/21 00:53 Albuterol 2.5 Mg/3 Ml Nebu IH Q4HRT PRN Shortness Of Breath Albuterol/Ipratropium 1 ampul 03/19/21 08:00 04/15/21 02:11 Ipratropium/Albuterol Sulfate 3 Ml Ampul.Neb IH Not Given Q6HRT INESSA Lipase/Protease/Amylase 1 each 04/09/21 17:17 Lipase 10,500/Protease 25,000/Amylase 43,750 (Units) Dr Cap FEEDTUBE PRN PRN For Clogged Feeding Tube Calcium Acetate 1,334 mg 04/03/21 20:00 04/14/21 22:05 Calcium Acetate 667 Mg Cap FEEDTUBE 1,334 mg TID INESSA Administration Dextrose 50 ml 03/14/21 11:02 03/15/21 11:40 Dextrose 50% In Water (25gm) 50 Ml Syringe IV 50 ml Q30MIN PRN Administration Hypoglycemia Protocol Famotidine 10 mg 03/17/21 22:00 04/14/21 22:04 Famotidine 10 Mg Tab PO 10 mg BID INESSA Administration Fentanyl 50 mcg 03/15/21 10:43 04/05/21 21:32 Fentanyl 100 Mcg/2 Ml Inj IV 50 mcg Q10MIN PRN Administration ANALGESIA Hydrocortisone Sodium Succinate 100 mg 04/10/21 00:00 04/15/21 00:19 Hydrocortisone Sod Succ 100 Mg/2 Ml Vial IV 100 mg Q8H INESSA Administration Hydrophilic Ointment 1 applic 03/14/21 17:50 Lip Therapy Vaseline TP Q2HR PRN Dry Lips Fentanyl Citrate 2,000 mcg in 100 mls @ 6.872 mls/hr 03/15/21 11:00 04/15/21 07:09 Fentanyl Drip Premix IV 4 mcg/kg/hr TITR INESSA 27.488 mls/hr Administration Protocol 1 MCG/KG/HR Sodium Chloride 500 mls @ 1 mls/hr 03/16/21 17:19 Nacl 0.9% 500 Ml IV DIRECT PRN ARTERIAL LINE FLUSH Midazolam HCl 100 mg/ Sodium 100 mls @ 1 mls/hr 03/30/21 15:00 04/14/21 15:45 Chloride IV 4 mg/hr TITR INESSA 4 mls/hr Titration Protocol 1 MG/HR Vasopressin 20 unit/ Sodium 101 mls @ 9.09 mls/hr 03/30/21 20:00 04/15/21 07:13 Chloride IV 0.03 units/min TITR INESSA 9.09 mls/hr Infusion 0.03 UNITS/MIN Phenylephrine HCl 100 mg/ 100 mls @ 3 mls/hr 03/31/21 04:00 04/06/21 07:58 Sodium Chloride IV 0 mcg/min TITR INESSA 0 mls/hr Titration Protocol 50 MCG/MIN Sodium Chloride 100 mls @ 999 mls/hr 04/01/21 08:19 Nacl 0.9% IV KARLOS PRN Hypotension Propofol 1,000 mg in 100 mls @ 4.26 mls/hr 04/07/21 13:00 04/12/21 12:52 Diprivan 10 Mg/Ml IV 0 mcg/kg/min TITR INESSA 0 mls/hr Titration Protocol 5 MCG/KG/MIN Micafungin Sodium 100 mg/ 100 mls @ 100 mls/hr 04/09/21 17:00 04/14/21 17:40 Sodium Chloride IV 100 mls/hr Q24H INESSA Administration Protocol Norepinephrine 8 mg/ Sodium 8 mg in 258 mls @ 3.87 mls/hr 04/12/21 04:00 04/14/21 17:39 Chloride IV 0 mcg/min TITRATE INESSA 0 mls/hr Titration Protocol 2 MCG/MIN MEROPENEM/NS 1 GRAM/100 ML 1 gram in 100 mls @ 100 mls/hr 04/12/21 22:00 04/14/21 22:05 Merrem/Ns 1 Gram/100 Ml IV 100 mls/hr Q24H INESSA Administration Protocol Sodium Chloride 1,000 mls @ 1 mls/hr 04/14/21 16:45 04/14/21 16:57 Nacl 0.9% 1000 Ml IV 1 mls/hr DIRECT INESSA Administration Insulin Human Lispro 0 unit 03/14/21 12:00 04/15/21 06:07 Insulin Lispro 100 Unit/Ml SUB-Q Not Given Q6HR [facility] Protocol Lorazepam 1 mg 03/13/21 19:40 03/30/21 19:58 Lorazepam 2 Mg/Ml Vial IV 1 mg Q4H PRN Administration Anxiety Multi-Ingred Cream/Lotion/Oil/Oint 1 applic 03/14/21 17:50 04/10/21 22:03 Mineral Oil/Petrolatum, White Ophth Oint 3.5 Gm OU 1 applic Q4HR PRN Administration Dry Eye(s) Ondansetron HCl 4 mg 03/13/21 19:30 03/21/21 12:05 Ondansetron 4 Mg/2 Ml Inj IV 4 mg Q8H PRN Administration Nausea And Vomiting Quetiapine Fumarate 300 mg 04/06/21 22:00 04/14/21 22:05 Quetiapine 100 Mg Tab PO 300 mg BID INESSA Administration Senna/Docusate Sodium 1 tab 03/14/21 22:00 04/14/21 22:06 Sennosides/Docusate Sodium 8.6/50 Mg Tab FEEDTUBE Not Given BID INESSA Simple Syrup 15 ml 04/09/21 17:17 Simple Syrup 15 Ml FEEDTUBE PRN PRN Hypoglycemia Simple Syrup 30 ml 04/09/21 17:17 Simple Syrup 15 Ml FEEDTUBE PRN PRN Hypoglycemia Sodium Bicarbonate 325 mg 04/09/21 17:17 Sodium Bicarbonate 325 Mg Tab FEEDTUBE PRN PRN For Clogged Feeding Tube Sodium Chloride 10 ml 03/13/21 22:00 04/14/21 22:17 Sodium Chloride 0.9% 10 Ml Flush Syringe IV 10 ml BID INESSA Administration Sodium Chloride 10 ml 03/13/21 19:30 Sodium Chloride 0.9% 10 Ml Flush Syringe IV PRN PRN LINE FLUSH Nutrition/Malnutrition Assess - Dietary Evaluation Nutrition/Malnutrition Findings: Nutrition Notes Start: 03/15/21 11:06 Freq: Status: Active Protocol: Document 04/14/21 11:13 CANDACE (Rec: 04/14/21 11:52 CANDACE [id number]) Nutrition Notes Initial or Follow up Reassessment Other Pertinent Diagnosis [id number], Transaminitis, Hyperglycemia. Current Diet TF -Glucerna 1.2 Abdullahi (since L 04/14). Labs/Tests 04/14: BUN 74, Crea 3.1, Glu 220. Pertinent Medications 04/14 Vit C, D50w (25 g) mEq, Insulin, Zn, Propofol 1,000 mg /100 ml @ 4.26 ml/hr, others nutritionally unremarkable. Height 5 ft 5 in Weight 142 kg [place] Body Weight (kg) 56.81 BMI 52.0 Weight change and time frame No new reports on body weight changes, Weight Status Morbidly Obese Subjective/Other Information RD consult on change TF from Nepro w/CARBSTEADY to Glucerna 1,2 Abdullahi, due to lack of stock Nepro. Percent of energy/protein needs met: 100% Kcal; 85% AA. Burn Absent Trauma Absent GI Symptoms None Food Allergy No Skin Integrity/Comment Clear, warm, dry. Current % PO Other Minimum of two criteria No Is patient on ventilator? Yes Is Patient Ambulatory and/or Out of Bed No REE-([facility]-confined to bed) 2570.232 Kcal/Kg value to use for calculation 14 Approximate Energy Requirements Using 1988 kcal/Kg Calculation Used for Recommendations Kcal/kg Additional Notes Pro needs >1.2g/kg adjBW: > 117g/day Fluid needs 1-1.5L/day Nutrition Intervention Nutrition Support: Change to Glucerna 1.2 Abdullahi @ 69 ml/hr. Flush: 109 ml water Q 4 hr. Kcal 1,988 Protein (gm) 99 Carbohydrates (gm) 190 Fat (gm) 99 Fluid (mL) 1,334 Fiber (gm) 27 % RDI: 100% Kcal; 85% AA. Goal #1 Maintain body weight within +/ -3% of admission BWt during LOS. Goal #2 Reach and maintain acceptable chemistry lab values during LOS. Follow-Up By: 04/16/21 Additional Comments Continue monitoring TF tolerance, Hydration, and BM.
[2021-04-14] MEDS ORDERED: SODIUM CHLORIDE 0.9% 1000 ML 1,000 ML ONE (16:27)
--- NOTE | 2021-04-14 16:44 | Progress Note ---
Assessment and Plan Impression: * Acute kidney injury - dialysis dependent * Acute hypoxic respiratory failure secondary to COVID 19 PNA * COVID 19 * Respiratory acidosis * Hyperkalemia Plan: * Patient is s/p HD yesterday * HD today - UF as tolerated * Transfuse pRBC per primary team * Hematology recs reviewed * Dose medications for renal function * Avoid potential nephrotoxins * Note plans for family conference this week Subjective Date of service: 04/14/21 Principal diagnosis: Ac hypoxemic resp failure; AE-Asthma; SAI; Crohn's; COVID- 19; Pneumonia Interval history: No acute events overnight. Patient is seen s/p HD. FiO2 80% at time of visit. Objective - Vital Signs Vital signs: Vital Signs - 12hr 04/14/21 04/14/21 04/14/21 04:45 05:00 05:16 Temperature Pulse Rate 134 H 136 H 134 H Pulse Rate [ Anterior Bilateral Throughout] Pulse Rate [ From Monitor] Respiratory 23 25 H 22 Rate Respiratory Rate [Anterior Bilateral Throughout] Blood Pressure 134/35 127/32 113/31 O2 Sat by Pulse 90 94 95 Oximetry O2 Sat by Pulse Oximetry [ Anterior Bilateral Throughout] 04/14/21 04/14/21 04/14/21 05:30 05:45 06:00 Temperature Pulse Rate 134 H 134 H 133 H Pulse Rate [ Anterior Bilateral Throughout] Pulse Rate [ From Monitor] Respiratory 18 23 22 Rate Respiratory Rate [Anterior Bilateral Throughout] Blood Pressure 119/40 120/37 123/46 O2 Sat by Pulse 90 93 95 Oximetry O2 Sat by Pulse Oximetry [ Anterior Bilateral Throughout] 04/14/21 04/14/21 04/14/21 06:16 06:30 06:46 Temperature Pulse Rate 133 H 131 H 132 H Pulse Rate [ Anterior Bilateral Throughout] Pulse Rate [ From Monitor] Respiratory 20 19 18 Rate Respiratory Rate [Anterior Bilateral Throughout] Blood Pressure 116/38 116/38 O2 Sat by Pulse 86 90 90 Oximetry O2 Sat by Pulse Oximetry [ Anterior Bilateral Throughout] 04/14/21 04/14/21 04/14/21 07:00 07:15 07:26 Temperature Pulse Rate 130 H 130 H 126 H Pulse Rate [ 126 H Anterior Bilateral Throughout] Pulse Rate [ From Monitor] Respiratory 16 17 Rate Respiratory 30 H Rate [Anterior Bilateral Throughout] Blood Pressure 113/22 118/88 118/88 O2 Sat by Pulse 93 92 94 Oximetry O2 Sat by Pulse Oximetry [ Anterior Bilateral Throughout] 04/14/21 04/14/21 04/14/21 07:29 07:30 07:45 Temperature 100.4 F H Pulse Rate 125 H 127 H Pulse Rate [ Anterior Bilateral Throughout] Pulse Rate [ From Monitor] Respiratory 15 15 Rate Respiratory Rate [Anterior Bilateral Throughout] Blood Pressure 118/88 130/52 O2 Sat by Pulse 94 96 Oximetry O2 Sat by Pulse Oximetry [ Anterior Bilateral Throughout] 04/14/21 04/14/21 04/14/21 08:00 08:15 08:30 Temperature 100.4 F H Pulse Rate 127 H 125 H 125 H Pulse Rate [ Anterior Bilateral Throughout] Pulse Rate [ 127 H From Monitor] Respiratory 30 H 16 16 Rate Respiratory Rate [Anterior Bilateral Throughout] Blood Pressure 130/52 115/48 115/48 O2 Sat by Pulse 91 96 Oximetry O2 Sat by Pulse Oximetry [ Anterior Bilateral Throughout] 04/14/21 04/14/21 04/14/21 08:45 09:00 09:15 Temperature Pulse Rate 125 H 123 H 124 H Pulse Rate [ Anterior Bilateral Throughout] Pulse Rate [ From Monitor] Respiratory 16 14 15 Rate Respiratory Rate [Anterior Bilateral Throughout] Blood Pressure 112/52 112/52 120/52 O2 Sat by Pulse 94 93 Oximetry O2 Sat by Pulse Oximetry [ Anterior Bilateral Throughout] 04/14/21 04/14/21 04/14/21 09:30 09:45 10:00 Temperature Pulse Rate 124 H 125 H 126 H Pulse Rate [ Anterior Bilateral Throughout] Pulse Rate [ From Monitor] Respiratory 16 17 14 Rate Respiratory Rate [Anterior Bilateral Throughout] Blood Pressure 126/49 127/53 127/53 O2 Sat by Pulse 95 95 93 Oximetry O2 Sat by Pulse Oximetry [ Anterior Bilateral Throughout] 04/14/21 04/14/21 04/14/21 10:16 10:30 10:40 Temperature Pulse Rate 129 H 127 H 130 H Pulse Rate [ Anterior Bilateral Throughout] Pulse Rate [ From Monitor] Respiratory 16 14 14 Rate Respiratory Rate [Anterior Bilateral Throughout] Blood Pressure 136/37 136/37 127/30 O2 Sat by Pulse 89 93 91 Oximetry O2 Sat by Pulse Oximetry [ Anterior Bilateral Throughout] 04/14/21 04/14/21 04/14/21 10:50 11:00 11:10 Temperature Pulse Rate 132 H 130 H 130 H Pulse Rate [ Anterior Bilateral Throughout] Pulse Rate [ From Monitor] Respiratory 15 13 15 Rate Respiratory Rate [Anterior Bilateral Throughout] Blood Pressure 132/61 132/61 128/56 O2 Sat by Pulse 88 90 90 Oximetry O2 Sat by Pulse Oximetry [ Anterior Bilateral Throughout] 04/14/21 04/14/21 04/14/21 11:16 11:20 11:27 Temperature 99.9 F H Pulse Rate 128 H 129 H 127 H Pulse Rate [ Anterior Bilateral Throughout] Pulse Rate [ From Monitor] Respiratory 15 14 Rate Respiratory Rate [Anterior Bilateral Throughout] Blood Pressure 117/32 117/32 123/34 O2 Sat by Pulse 89 Oximetry O2 Sat by Pulse 94 Oximetry [ Anterior Bilateral Throughout] 04/14/21 04/14/21 04/14/21 11:30 11:32 11:39 Temperature 100.0 F H Pulse Rate 127 H 127 H Pulse Rate [ Anterior Bilateral Throughout] Pulse Rate [ From Monitor] Respiratory 15 Rate Respiratory Rate [Anterior Bilateral Throughout] Blood Pressure 123/60 123/60 O2 Sat by Pulse 86 97 Oximetry O2 Sat by Pulse Oximetry [ Anterior Bilateral Throughout] 04/14/21 04/14/21 04/14/21 11:40 11:45 11:50 Temperature Pulse Rate 127 H 123 H 123 H Pulse Rate [ Anterior Bilateral Throughout] Pulse Rate [ From Monitor] Respiratory 11 L 10 L Rate Respiratory Rate [Anterior Bilateral Throughout] Blood Pressure 123/60 95/33 95/33 O2 Sat by Pulse 97 96 Oximetry O2 Sat by Pulse Oximetry [ Anterior Bilateral Throughout] 04/14/21 04/14/21 04/14/21 11:59 12:00 12:03 Temperature 99.5 F 99.8 F H 99.5 F Pulse Rate 117 H 118 H 111 H Pulse Rate [ Anterior Bilateral Throughout] Pulse Rate [ 118 H From Monitor] Respiratory 10 L 10 L 11 L Rate Respiratory Rate [Anterior Bilateral Throughout] Blood Pressure 102/31 102/31 107/61 O2 Sat by Pulse 97 96 100 Oximetry O2 Sat by Pulse Oximetry [ Anterior Bilateral Throughout] 04/14/21 04/14/21 04/14/21 12:15 12:30 12:45 Temperature 99.3 F Pulse Rate 108 H 106 H 105 H Pulse Rate [ Anterior Bilateral Throughout] Pulse Rate [ From Monitor] Respiratory 11 L 10 L 11 L Rate Respiratory Rate [Anterior Bilateral Throughout] Blood Pressure 126/75 125/74 133/64 O2 Sat by Pulse 99 96 93 Oximetry O2 Sat by Pulse Oximetry [ Anterior Bilateral Throughout] 04/14/21 04/14/21 04/14/21 13:00 13:15 13:30 Temperature Pulse Rate 107 H 108 H 109 H Pulse Rate [ Anterior Bilateral Throughout] Pulse Rate [ From Monitor] Respiratory 11 L 16 14 Rate Respiratory Rate [Anterior Bilateral Throughout] Blood Pressure 127/67 139/70 137/62 O2 Sat by Pulse 91 92 94 Oximetry O2 Sat by Pulse Oximetry [ Anterior Bilateral Throughout] 04/14/21 04/14/21 04/14/21 13:45 14:00 14:15 Temperature Pulse Rate 107 H 108 H 107 H Pulse Rate [ Anterior Bilateral Throughout] Pulse Rate [ From Monitor] Respiratory 14 13 13 Rate Respiratory Rate [Anterior Bilateral Throughout] Blood Pressure 142/66 142/80 141/80 O2 Sat by Pulse 94 93 93 Oximetry O2 Sat by Pulse Oximetry [ Anterior Bilateral Throughout] 04/14/21 04/14/21 04/14/21 14:29 14:30 14:45 Temperature Pulse Rate 105 H 106 H 115 H Pulse Rate [ Anterior Bilateral Throughout] Pulse Rate [ From Monitor] Respiratory 12 14 Rate Respiratory Rate [Anterior Bilateral Throughout] Blood Pressure 146/82 150/79 147/73 O2 Sat by Pulse 94 93 Oximetry O2 Sat by Pulse Oximetry [ Anterior Bilateral Throughout] 04/14/21 04/14/21 04/14/21 14:46 15:00 15:12 Temperature 99.3 F Pulse Rate 118 H 117 H Pulse Rate [ Anterior Bilateral Throughout] Pulse Rate [ From Monitor] Respiratory 13 Rate Respiratory Rate [Anterior Bilateral Throughout] Blood Pressure 147/73 143/61 106/40 O2 Sat by Pulse 92 99 Oximetry O2 Sat by Pulse 99 Oximetry [ Anterior Bilateral Throughout] 04/14/21 04/14/21 04/14/21 15:16 15:30 15:45 Temperature Pulse Rate 118 H 118 H Pulse Rate [ Anterior Bilateral Throughout] Pulse Rate [ From Monitor] Respiratory 13 27 H Rate Respiratory Rate [Anterior Bilateral Throughout] Blood Pressure 141/73 141/73 94/41 O2 Sat by Pulse 98 98 100 Oximetry O2 Sat by Pulse Oximetry [ Anterior Bilateral Throughout] - General Appearance General appearance: well-developed, well-nourished, intubated EENT: other (ETT in place) Cardiology: other (Deferred - sterile procedure in progress) Gastrointestinal: other (Deferred - sterile procedure in progress) Integumentary: rash - Lab 04/15/21 Unknown 04/15/21 Unknown Most recent lab results ABG pH 7.354 (7.320-7.450) 04/13/21 21:00 ABG pCO2 68.6 mm Hg 04/13/21 03:52 ABG pO2 98.9 mm Hg (80.0-90.0) H 04/13/21 03:52 ABG HCO3 25.5 mmol/L (20.0-26.0) 04/13/21 03:52 ABG O2 Saturation 97.0 (0-100) 04/13/21 21:00 Calcium 8.4 mg/dL (8.4-10.2) 04/14/21 04:43 Phosphorus 6.80 mg/dL (2.5-4.5) H 04/13/21 04:44 Magnesium 2.10 mg/dL (1.7-2.3) 04/13/21 04:44 Urine Creatinine 40.1 mg/dL (0.1-20.0) H 03/14/21 17:50 Urine Sodium 124 mmol/L 03/14/21 17:50 Medications & Allergies - Medications Allergies/Adverse Reactions: Allergies oxycodone HCl [From Percocet] Allergy (Severe, Verified 03/30/21 14:01) Swelling cefepime Allergy (Verified 04/06/21 13:38) Rash hydrocodone bitartrate [From Vicodin] Allergy (Verified 03/31/21 08:20) Swelling ALLERGY TO TYLENOL VS OXYCODONE ACTIVE ORDER REMOVED FROM [facility] SINCE UNABLE TO CONFIRM WITH FAMILY Home Medications: Home Medications Medication Instructions Recorded Confirmed Last Taken Type Chlorhexidine Mouthwash [Peridex] 15 ml MM BID #1 bottle 10/11/20 03/13/21 Unknown Rx Clindamycin [Clindamycin CAP] 300 mg PO Q8H #21 cap 10/11/20 03/13/21 Unknown Rx Naproxen 500 mg PO Q12H PRN #12 tablet 10/11/20 03/13/21 Unknown Rx Butalb/Acetamin/Caff 50-325-40 1 - 2 tab PO Q6HR PRN #15 tab 12/05/20 03/13/21 Unknown Rx [Fioricet 50-325-40] Famotidine [Pepcid] 20 mg PO BID #30 tablet 12/05/20 03/13/21 Unknown Rx Ketorolac [Toradol] 10 mg PO Q8H PRN #20 tablet 12/05/20 03/13/21 Unknown Rx Ondansetron [Zofran Odt] 4 mg PO Q6HR PRN #20 tab.rapdis 12/05/20 03/13/21 Unknown Rx Albuterol Sulfate [Proair 90 mcg IH Q4HR PRN #2 aer.[email or web address] 01/01/21 03/13/21 Unknown Rx Respiclick] Mupirocin [Bactroban 2% OINT] 1 applic TP BID 7 Days #1 tube 01/01/21 03/13/21 Unknown Rx Triamcinolone Aceton 0.1% (Nf) 1 applic TP BID 14 Days #1 tube 01/01/21 03/13/21 Unknown Rx [Kenalog (NF)] predniSONE [Deltasone] 40 mg PO QDAY #8 tab 01/01/21 03/13/21 Unknown Rx Active Medications: Generic Name Dose Route Start Last Admin Trade Name Freq PRN Reason Stop Dose Admin Acetaminophen 650 mg 03/31/21 12:41 04/13/21 07:55 Acetaminophen 325 Mg/10.15 Ml Oral Liqd Unit Dose FEEDTUBE 650 mg Q6H PRN Administration TEMP >/=100.4 Albumin Human 25 gm 04/01/21 08:19 04/01/21 16:23 Albumin Human 25% (25 Gm/100 Ml) Inj IV 25 gm KARLOS PRN Administration Hypotension Albuterol 2.5 mg 03/19/21 00:53 Albuterol 2.5 Mg/3 Ml Nebu IH Q4HRT PRN Shortness Of Breath Albuterol/Ipratropium 1 ampul 03/19/21 08:00 04/14/21 13:54 Ipratropium/Albuterol Sulfate 3 Ml Ampul.Neb IH Not Given Q6HRT INESSA Lipase/Protease/Amylase 1 each 04/09/21 17:17 Lipase 10,500/Protease 25,000/Amylase 43,750 (Units) Dr White FEEDTUBE PRN PRN For Clogged Feeding Tube Ascorbic Acid 500 mg 03/14/21 22:00 04/14/21 09:08 Ascorbic Acid 500 Mg Tab PO 500 mg BID INESSA Administration Calcium Acetate 1,334 mg 04/03/21 20:00 04/14/21 13:43 Calcium Acetate 667 Mg Cap FEEDTUBE 1,334 mg TID INESSA Administration Dextrose 50 ml 03/14/21 11:02 03/15/21 11:40 Dextrose 50% In Water (25gm) 50 Ml Syringe IV 50 ml Q30MIN PRN Administration Hypoglycemia Protocol Diphenhydramine HCl 50 mg 04/13/21 18:00 04/14/21 11:23 Diphenhydramine 50 Mg/Ml Vial IV 04/14/21 18:01 50 mg Q6HR INESSA Administration Famotidine 10 mg 03/17/21 22:00 04/14/21 09:08 Famotidine 10 Mg Tab PO 10 mg BID INESSA Administration Fentanyl 50 mcg 03/15/21 10:43 04/05/21 21:32 Fentanyl 100 Mcg/2 Ml Inj IV 50 mcg Q10MIN PRN Administration ANALGESIA Hydrocortisone Sodium Succinate 100 mg 04/10/21 00:00 04/14/21 15:44 Hydrocortisone Sod Succ 100 Mg/2 Ml Vial IV 100 mg Q8H INESSA Administration Hydrophilic Ointment 1 applic 03/14/21 17:50 Lip Therapy Vaseline TP Q2HR PRN Dry Lips Fentanyl Citrate 2,000 mcg in 100 mls @ 6.872 mls/hr 03/15/21 11:00 04/14/21 15:46 Fentanyl Drip Premix IV 4 mcg/kg/hr TITR INESSA 27.488 mls/hr Administration Protocol 1 MCG/KG/HR Sodium Chloride 500 mls @ 1 mls/hr 03/16/21 17:19 Nacl 0.9% 500 Ml IV DIRECT PRN ARTERIAL LINE FLUSH Midazolam HCl 100 mg/ Sodium 100 mls @ 1 mls/hr 03/30/21 15:00 04/14/21 11:25 Chloride IV 5 mg/hr TITR INESSA 5 mls/hr Administration Protocol 1 MG/HR Vasopressin 20 unit/ Sodium 101 mls @ 9.09 mls/hr 03/30/21 20:00 04/14/21 11:25 Chloride IV 0.03 units/min TITR INESSA 9.09 mls/hr Administration 0.03 UNITS/MIN Phenylephrine HCl 100 mg/ 100 mls @ 3 mls/hr 03/31/21 04:00 04/06/21 07:58 Sodium Chloride IV 0 mcg/min TITR INESSA 0 mls/hr Titration Protocol 50 MCG/MIN Sodium Chloride 100 mls @ 999 mls/hr 04/01/21 08:19 Nacl 0.9% IV KARLOS PRN Hypotension Propofol 1,000 mg in 100 mls @ 4.26 mls/hr 04/07/21 13:00 04/12/21 12:52 Diprivan 10 Mg/Ml IV 0 mcg/kg/min TITR INESSA 0 mls/hr Titration Protocol 5 MCG/KG/MIN Micafungin Sodium 100 mg/ 100 mls @ 100 mls/hr 04/09/21 17:00 04/13/21 22:23 Sodium Chloride IV Not Given Q24H INESSA Protocol Norepinephrine 8 mg/ Sodium 8 mg in 258 mls @ 3.87 mls/hr 04/12/21 04:00 04/14/21 11:50 Chloride IV 10 mcg/min TITRATE INESSA 19.35 mls/hr Titration Protocol 2 MCG/MIN MEROPENEM/NS 1 GRAM/100 ML 1 gram in 100 mls @ 100 mls/hr 04/12/21 22:00 04/13/21 22:16 Merrem/Ns 1 Gram/100 Ml IV 100 mls/hr Q24H INESSA Administration Protocol Sodium Chloride 500 mls @ 0 mls/hr 04/14/21 08:37 Nacl 0.9% 500 Ml IV 04/14/21 23:59 ONCE NR As Directed Sodium Chloride 1,000 mls @ 1 mls/hr 04/14/21 16:45 Nacl 0.9% 1000 Ml IV DIRECT INESSA Insulin Human Lispro 0 unit 03/14/21 12:00 04/14/21 11:23 Insulin Lispro 100 Unit/Ml SUB-Q 3 unit Q6HR INESSA Administration Protocol Lorazepam 1 mg 03/13/21 19:40 03/30/21 19:58 Lorazepam 2 Mg/Ml Vial IV 1 mg Q4H PRN Administration Anxiety Multi-Ingred Cream/Lotion/Oil/Oint 1 applic 03/14/21 17:50 04/10/21 22:03 Mineral Oil/Petrolatum, White Ophth Oint 3.5 Gm OU 1 applic Q4HR PRN Administration Dry Eye(s) Ondansetron HCl 4 mg 03/13/21 19:30 03/21/21 12:05 Ondansetron 4 Mg/2 Ml Inj IV 4 mg Q8H PRN Administration Nausea And Vomiting Quetiapine Fumarate 300 mg 04/06/21 22:00 04/14/21 09:08 Quetiapine 100 Mg Tab PO 300 mg BID INESSA Administration Senna/Docusate Sodium 1 tab 03/14/21 22:00 04/14/21 09:09 Sennosides/Docusate Sodium 8.6/50 Mg Tab FEEDTUBE Not Given BID INESSA Simple Syrup 15 ml 04/09/21 17:17 Simple Syrup 15 Ml FEEDTUBE PRN PRN Hypoglycemia Simple Syrup 30 ml 04/09/21 17:17 Simple Syrup 15 Ml FEEDTUBE PRN PRN Hypoglycemia Sodium Bicarbonate 325 mg 04/09/21 17:17 Sodium Bicarbonate 325 Mg Tab FEEDTUBE PRN PRN For Clogged Feeding Tube Sodium Chloride 10 ml 03/13/21 22:00 04/14/21 09:09 Sodium Chloride 0.9% 10 Ml Flush Syringe IV 10 ml BID INESSA Administration Sodium Chloride 10 ml 03/13/21 19:30 Sodium Chloride 0.9% 10 Ml Flush Syringe IV PRN PRN LINE FLUSH Zinc Sulfate 220 mg 03/14/21 22:00 04/14/21 09:08 Zinc Sulfate 220 Mg Cap PO 220 mg BID INESSA Administration
[2021-04-14] MEDS ORDERED: SODIUM CHLORIDE 0.9% 1000 ML 1,000 ML IV SCH (16:45)
--- NOTE | 2021-04-14 16:53 | Progress Note ---
Assessment and Plan Cultures: SARS CoV2 PCR: Positive 03/13/2021 blood culture: No growth Resp cultures 03/14/2021: MSSA 03/23/2021 blood culture: No growth 03/23/2021 sputum culture: Usual respiratory maury 03/29/2021 blood culture: no growth 04/06/2021 blood culture: In process 04/06/2021 endotracheal aspirate culture: E faecalis 04/06/2021 urine culture: No growth A/P: 31-year-old female with asthma, morbid obesity, Crohn's disease admitted with cough and shortness of breath: #Septic shock: s/p abx. Persistently febrile, on multiple pressors. Has previously completed Ancef followed by Cefepime, and now on Aztreonam, Vancomycin and levofloxacin. #Bilateral pneumonia: Secondary to COVID-19. Severe disease, then developed MSSA in the lungs. s/p Actemra 03/15/2021, completed steroids for COVID. D-dimer very high initially, which has shown improvement. #Acute hypoxic respiratory failure: on the vent. #Rash with eosinophilia: Question of drug reaction, remains off Cefepime. 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 #Acute renal failure: progressive. Nephrology following, on HD. #Acute asthma exacerbation #Morbid obesity Recs: -f/u new cultures: blood culture -Continue micafungin -Continue vancomycin goal trough 10-20 -Continue meropenem -Complete 8 days of above, aptient appears to be improving. -on steroids per ICU -consider CT chest, abdomen and pelvis when feasible -extremely poor prognosis Champ Ling MD [facility] O: [phone] F: [phone] Subjective Date of service: 04/14/21 Principal diagnosis: Ac hypoxemic resp failure; AE-Asthma; SAI; Crohn's; COVID- 19; Pneumonia Interval history: Well overnight, remains tachycardic. White count 11.8. Respiratory cultures with ongoing Enterococcus Objective - Exam Narrative Exam: Physical exam deferred to reduce risk of transmission of COVID-19. Please refer to primary team's note. - Constitutional Vitals: Vital Signs Temp Pulse Resp BP Pulse Ox 99.3 F 118 H 27 H 94/41 100 04/14/21 14:46 04/14/21 15:45 04/14/21 15:45 04/14/21 15:45 04/14/21 15:45 Temperature -Last 24 Hours Temperature 99.3 F Temperature 99.3 F Temperature 99.5 F Temperature 99.8 F Temperature 99.5 F Temperature 100.0 F Temperature 99.9 F Temperature 100.4 F Temperature 100.4 F Temperature 100.4 F Temperature 100.0 F Temperature 99.7 F Temperature 97.9 F Temperature 100.0 F - Labs CBC & Chem 7: 04/14/21 04:43 04/14/21 04:43 Labs: Abnormal lab results 04/11/21 04/13/21 04/13/21 Range/Units 13:39 17:28 21:00 WBC (4.5-11.0) K/mm3 RBC (3.65-5.03) M/mm3 Hgb (10.1-14.3) gm/dl Hct (30.3-42.9) % RDW (13.2-15.2) % Plt Count (140-440) K/mm3 POC ABG pCO2 48.6 H (32.0-48.0) mmHg ABG Hemoglobin 8.3 L (12.0-17.5) ABG Sodium 134.6 L (136.0-145.0) mmol/L ABG Glucose 243 H (65-95) mg/dL Carboxyhemoglobin 0.4 L (0.5-1.5) BUN (7-17) mg/dL Creatinine (0.6-1.2) mg/dL Glucose (65-100) mg/dL POC Glucose 174 H (70-105) mg/dL Arterial Blood Glucose 243 H (65-95) mg/dL Crossmatch See Detail 04/13/21 04/14/21 04/14/21 Range/Units 23:28 04:43 04:43 WBC 11.8 H (4.5-11.0) K/mm3 RBC 2.58 L (3.65-5.03) M/mm3 Hgb 7.5 L (10.1-14.3) gm/dl Hct 23.4 L (30.3-42.9) % RDW 17.1 H (13.2-15.2) % Plt Count 45 L (140-440) K/mm3 POC ABG pCO2 (32.0-48.0) mmHg ABG Hemoglobin (12.0-17.5) ABG Sodium (136.0-145.0) mmol/L ABG Glucose (65-95) mg/dL Carboxyhemoglobin (0.5-1.5) BUN 74 H (7-17) mg/dL Creatinine 3.1 H (0.6-1.2) mg/dL Glucose 220 H (65-100) mg/dL POC Glucose 207 H (70-105) mg/dL Arterial Blood Glucose (65-95) mg/dL Crossmatch 04/14/21 04/14/21 04/14/21 Range/Units 05:28 11:10 16:20 WBC (4.5-11.0) K/mm3 RBC (3.65-5.03) M/mm3 Hgb (10.1-14.3) gm/dl Hct (30.3-42.9) % RDW (13.2-15.2) % Plt Count (140-440) K/mm3 POC ABG pCO2 (32.0-48.0) mmHg ABG Hemoglobin (12.0-17.5) ABG Sodium (136.0-145.0) mmol/L ABG Glucose (65-95) mg/dL Carboxyhemoglobin (0.5-1.5) BUN (7-17) mg/dL Creatinine (0.6-1.2) mg/dL Glucose (65-100) mg/dL POC Glucose 200 H 160 H 168 H (70-105) mg/dL Arterial Blood Glucose (65-95) mg/dL Crossmatch
--- NOTE | 2021-04-14 17:37 | Procedure Note ---
<CRISTY PASCUAL - Last Filed: 04/14/21 17:33> Date of procedure: 04/14/21 Pre-op diagnosis: ARDs, SAI on HD, hypotension Post-op diagnosis: same Procedure: Arsh test completed. Ulnar pulse intact. Left arterial line inserted using sterile technique. Area prepped with chlorhexidine and the site was infiltrated with 1ml 1% lidocaine. Arterial line was placed using ultrasound; catheter advanced without difficulty. Line was sutured, biopatch placed and tegaderm dressing applied. Arterial waveform observed on bedside monitor. Line flushed and zeroed. RN at bedside. Pt tolerated procedure well. VS remained stable throughout procedure. (time spent placing line not included in daily critical care time) CCT 60 min Anesthesia: local Estimated blood loss: minimal Condition: critical Disposition: ICU <SAURABH ALBRECHT - Last Filed: 04/15/21 07:14> Procedure: I saw and evaluated the patient. Discussed with the nurse practitioner and agree with their findings and plan as documented in this note.
[2021-04-14] MEDS: MICAFUNGIN 100 MG in SODIUM CHLORIDE 0.9% 100 ML IV SCH (17:40)
[2021-04-14] MEDS: MEROPENEM/NS 1 GRAM/100 ML 1 GRAM/100 ML BAG IV SCH (22:05)
[2021-04-14] MEDS: ACETAMINOPHEN 325 MG/10.15 ML ORAL LIQD UNIT DOSE FEEDTUBE PRN (22:36)
[2021-04-15] MEDS: fentaNYL DRIP Premix 2,000 MCG/100 ML BAG IV SCH ×7 (00:13→23:34)
[2021-04-15] MEDS: HYDROCORTISONE SOD SUCC 100 MG/2 ML VIAL IV SCH ×4 (00:19→22:56)
[2021-04-15] MEDS: INSULIN LISPRO 100 UNIT/ML SUB-Q SCH ×4 (00:22→18:56)
[2021-04-15] MEDS: IPRATROPIUM/ALBUTEROL SULFATE 3 ML AMPUL.NEB IH SCH ×4 (02:11→20:18)
[2021-04-15 05:39] LABS: Hematocrit 22.4 % (30.3-42.9); Hemoglobin 7.1 gm/dl (10.1-14.3); Mean Corpuscular HGB Conc 32 % (30-34); Mean Corpuscular Volume 93 fl (79-97); Red Blood Count 2.41 M/mm3 (3.65-5.03)
[2021-04-15 05:51] LABS: INR 1.18 (0.87-1.13)
[2021-04-15 05:52] LABS: Albumin 2.4 g/dL (3.9-5); Calcium 8.3 mg/dL (8.4-10.2)
[2021-04-15] MEDS: ACETAMINOPHEN 325 MG/10.15 ML ORAL LIQD UNIT DOSE FEEDTUBE PRN ×2 (05:55→12:30)
[2021-04-15 05:56] LABS: Platelet Count 38 K/mm3 (140-440)
[2021-04-15] MEDS: CALCIUM ACETATE 667 MG CAP FEEDTUBE SCH ×3 (07:54→20:35)
--- NOTE | 2021-04-15 09:15 | XRay Report ---
CHEST - 1 VIEW 0745 hours INDICATION: hypoxia COMPARISON: Yesterday FINDINGS: Support devices: The endotracheal tube terminates 6 cm superior to the stephanie but appears unchanged since previous exams. Consider advancement by 2 cm. Nasogastric tube and right IJ venous access are u nchanged. Heart: Stable cardiomediastinal silhouette. Lungs/pleura: Bilateral lung opacities appear decreased by 25% although there is slight interval inc rease near the right lung apex. No pleural effusion or pneumothorax. Additional findings: None. IMPRESSION: Overall mild improvement in the bilateral lung opacities. No new acute process. Endotracheal tube as described. Signer Name: Leroy Loera Jr, MD Signed: 04/15/2021 9:10 AM Workstation Name: [id number]
[2021-04-15] MEDS: FAMOTIDINE 10 MG TAB PO SCH ×2 (09:26→22:35)
[2021-04-15] MEDS: SENNOSIDES/DOCUSATE SODIUM 8.6/50 MG TAB FEEDTUBE SCH ×2 (09:26→22:53)
[2021-04-15] MEDS: QUEtiapine 100 MG TAB PO SCH ×2 (09:27→22:35)
[2021-04-15] MEDS: MIDAZOLAM 100 MG in SODIUM CHLORIDE 0.9% 80 ML IV SCH (09:27)
--- NOTE | 2021-04-15 09:28 | Progress Note ---
Assessment and Plan Impression: * Acute kidney injury - dialysis dependent * Acute hypoxic respiratory failure secondary to COVID 19 PNA * COVID 19 * Respiratory acidosis * Hyperkalemia Plan: * Patient is s/p HD on and Monday * Will plan for next HD tomorrow - HR in 130s this AM * Transfuse pRBC per primary team * Hematology recs reviewed * Dose medications for renal function * Avoid potential nephrotoxins * Note plans for family conference this week Subjective Date of service: 04/15/21 Principal diagnosis: Ac hypoxemic resp failure; AE-Asthma; SAI; Crohn's; COVID- 19; Pneumonia Objective - Vital Signs Vital signs: Vital Signs - 12hr 04/14/21 04/14/21 04/14/21 21:30 21:46 22:00 Temperature Pulse Rate 113 H 114 H 116 H Pulse Rate [ Anterior Bilateral Throughout] Pulse Rate [ From Monitor] Respiratory 19 15 13 Rate Respiratory Rate [Anterior Bilateral Throughout] Blood Pressure 140/76 140/76 140/76 O2 Sat by Pulse 100 100 100 Oximetry 04/14/21 04/14/21 04/14/21 22:16 22:30 22:46 Temperature Pulse Rate 117 H 119 H 125 H Pulse Rate [ Anterior Bilateral Throughout] Pulse Rate [ From Monitor] Respiratory 13 15 13 Rate Respiratory Rate [Anterior Bilateral Throughout] Blood Pressure 140/76 140/76 140/76 O2 Sat by Pulse 100 100 100 Oximetry 04/14/21 04/14/21 04/14/21 23:00 23:16 23:30 Temperature Pulse Rate 127 H 129 H 128 H Pulse Rate [ Anterior Bilateral Throughout] Pulse Rate [ From Monitor] Respiratory 15 16 15 Rate Respiratory Rate [Anterior Bilateral Throughout] Blood Pressure 140/76 140/76 140/76 O2 Sat by Pulse 100 100 100 Oximetry 04/14/21 04/15/21 04/15/21 23:46 00:00 00:16 Temperature 101.5 F H Pulse Rate 128 H 129 H 129 H Pulse Rate [ Anterior Bilateral Throughout] Pulse Rate [ 128 H From Monitor] Respiratory 16 15 14 Rate Respiratory Rate [Anterior Bilateral Throughout] Blood Pressure 140/76 140/76 140/76 O2 Sat by Pulse 100 100 100 Oximetry 04/15/21 04/15/21 04/15/21 00:30 00:46 00:54 Temperature Pulse Rate 132 H 134 H 134 H Pulse Rate [ Anterior Bilateral Throughout] Pulse Rate [ From Monitor] Respiratory 16 18 Rate Respiratory Rate [Anterior Bilateral Throughout] Blood Pressure 140/76 140/76 115/36 O2 Sat by Pulse 100 100 100 Oximetry 04/15/21 04/15/21 04/15/21 01:00 01:16 01:30 Temperature Pulse Rate 134 H 134 H 135 H Pulse Rate [ Anterior Bilateral Throughout] Pulse Rate [ From Monitor] Respiratory 18 17 19 Rate Respiratory Rate [Anterior Bilateral Throughout] Blood Pressure 140/76 140/76 140/76 O2 Sat by Pulse 100 100 100 Oximetry 04/15/21 04/15/21 04/15/21 01:46 02:00 02:16 Temperature Pulse Rate 136 H 138 H 136 H Pulse Rate [ Anterior Bilateral Throughout] Pulse Rate [ From Monitor] Respiratory 19 19 18 Rate Respiratory Rate [Anterior Bilateral Throughout] Blood Pressure 140/76 140/76 140/76 O2 Sat by Pulse 100 100 100 Oximetry 04/15/21 04/15/21 04/15/21 02:30 02:46 03:00 Temperature Pulse Rate 136 H 135 H 132 H Pulse Rate [ Anterior Bilateral Throughout] Pulse Rate [ From Monitor] Respiratory 18 17 17 Rate Respiratory Rate [Anterior Bilateral Throughout] Blood Pressure 140/76 140/76 140/76 O2 Sat by Pulse 100 100 100 Oximetry 04/15/21 04/15/21 04/15/21 03:16 03:30 03:41 Temperature 102.0 F H Pulse Rate 138 H 138 H Pulse Rate [ Anterior Bilateral Throughout] Pulse Rate [ From Monitor] Respiratory 23 19 Rate Respiratory Rate [Anterior Bilateral Throughout] Blood Pressure 140/76 140/76 O2 Sat by Pulse 98 100 Oximetry 04/15/21 04/15/21 04/15/21 03:46 03:48 04:00 Temperature 102.0 F H Pulse Rate 132 H 133 H 135 H Pulse Rate [ Anterior Bilateral Throughout] Pulse Rate [ 128 H From Monitor] Respiratory 17 30 H Rate Respiratory Rate [Anterior Bilateral Throughout] Blood Pressure 140/76 135/42 140/76 O2 Sat by Pulse 100 100 96 Oximetry 04/15/21 04/15/21 04/15/21 04:16 04:30 04:46 Temperature Pulse Rate 138 H 138 H 138 H Pulse Rate [ Anterior Bilateral Throughout] Pulse Rate [ From Monitor] Respiratory 22 22 21 Rate Respiratory Rate [Anterior Bilateral Throughout] Blood Pressure 140/76 140/76 140/76 O2 Sat by Pulse 100 98 98 Oximetry 04/15/21 04/15/21 04/15/21 05:00 05:16 05:30 Temperature Pulse Rate 137 H 134 H 132 H Pulse Rate [ Anterior Bilateral Throughout] Pulse Rate [ From Monitor] Respiratory 20 21 19 Rate Respiratory Rate [Anterior Bilateral Throughout] Blood Pressure 140/76 140/76 140/76 O2 Sat by Pulse 99 99 100 Oximetry 04/15/21 04/15/21 04/15/21 05:46 06:00 06:16 Temperature Pulse Rate 133 H 137 H 135 H Pulse Rate [ Anterior Bilateral Throughout] Pulse Rate [ From Monitor] Respiratory 21 20 21 Rate Respiratory Rate [Anterior Bilateral Throughout] Blood Pressure 140/76 140/76 140/76 O2 Sat by Pulse 100 100 100 Oximetry 04/15/21 04/15/21 04/15/21 06:30 06:46 07:00 Temperature Pulse Rate 134 H 142 H 137 H Pulse Rate [ Anterior Bilateral Throughout] Pulse Rate [ From Monitor] Respiratory 20 22 20 Rate Respiratory Rate [Anterior Bilateral Throughout] Blood Pressure 140/76 140/76 140/76 O2 Sat by Pulse 100 95 98 Oximetry 04/15/21 04/15/21 04/15/21 07:16 07:30 07:39 Temperature Pulse Rate 131 H 127 H 124 H Pulse Rate [ 126 H Anterior Bilateral Throughout] Pulse Rate [ From Monitor] Respiratory 19 25 H Rate Respiratory 32 H Rate [Anterior Bilateral Throughout] Blood Pressure 140/76 140/76 126/61 O2 Sat by Pulse 98 97 98 Oximetry 04/15/21 04/15/21 04/15/21 07:41 07:46 08:00 Temperature 102.0 F H Pulse Rate 130 H 138 H Pulse Rate [ Anterior Bilateral Throughout] Pulse Rate [ 138 H From Monitor] Respiratory 16 22 Rate Respiratory Rate [Anterior Bilateral Throughout] Blood Pressure 140/76 140/76 O2 Sat by Pulse 100 98 Oximetry 04/15/21 04/15/21 08:16 08:30 Temperature Pulse Rate 137 H 134 H Pulse Rate [ Anterior Bilateral Throughout] Pulse Rate [ From Monitor] Respiratory 37 H 31 H Rate Respiratory Rate [Anterior Bilateral Throughout] Blood Pressure 140/76 140/76 O2 Sat by Pulse 96 99 Oximetry - Lab 04/15/21 Unknown 04/15/21 Unknown Most recent lab results ABG pH 7.207 (7.320-7.450) L 04/14/21 21:00 ABG pCO2 68.6 mm Hg 04/13/21 03:52 ABG pO2 98.9 mm Hg (80.0-90.0) H 04/13/21 03:52 ABG HCO3 25.5 mmol/L (20.0-26.0) 04/13/21 03:52 ABG O2 Saturation 98.8 (0-100) 04/14/21 21:00 Calcium 8.3 mg/dL (8.4-10.2) L 04/15/21 Unknown Phosphorus 5.70 mg/dL (2.5-4.5) H 04/15/21 Unknown Magnesium 1.90 mg/dL (1.7-2.3) 04/15/21 Unknown Urine Creatinine 40.1 mg/dL (0.1-20.0) H 03/14/21 17:50 Urine Sodium 124 mmol/L 03/14/21 17:50 Medications & Allergies - Medications Allergies/Adverse Reactions: Allergies oxycodone HCl [From Percocet] Allergy (Severe, Verified 03/30/21 14:01) Swelling cefepime Allergy (Verified 04/06/21 13:38) Rash hydrocodone bitartrate [From Vicodin] Allergy (Verified 03/31/21 08:20) Swelling ALLERGY TO TYLENOL VS OXYCODONE ACTIVE ORDER REMOVED FROM [facility] SINCE UNABLE TO CONFIRM WITH FAMILY Home Medications: Home Medications Medication Instructions Recorded Confirmed Last Taken Type Chlorhexidine Mouthwash [Peridex] 15 ml MM BID #1 bottle 10/11/20 03/13/21 Unknown Rx Clindamycin [Clindamycin CAP] 300 mg PO Q8H #21 cap 10/11/20 03/13/21 Unknown Rx Naproxen 500 mg PO Q12H PRN #12 tablet 10/11/20 03/13/21 Unknown Rx Butalb/Acetamin/Caff 50-325-40 1 - 2 tab PO Q6HR PRN #15 tab 12/05/20 03/13/21 Unknown Rx [Fioricet 50-325-40] Famotidine [Pepcid] 20 mg PO BID #30 tablet 12/05/20 03/13/21 Unknown Rx Ketorolac [Toradol] 10 mg PO Q8H PRN #20 tablet 12/05/20 03/13/21 Unknown Rx Ondansetron [Zofran Odt] 4 mg PO Q6HR PRN #20 tab.rapdis 12/05/20 03/13/21 Unknown Rx Albuterol Sulfate [Proair 90 mcg IH Q4HR PRN #2 [email or web address] 01/01/21 03/13/21 Unknown Rx Respiclick] Mupirocin [Bactroban 2% OINT] 1 applic TP BID 7 Days #1 tube 01/01/21 03/13/21 Unknown Rx Triamcinolone Aceton 0.1% (Nf) 1 applic TP BID 14 Days #1 tube 01/01/21 03/13/21 Unknown Rx [Kenalog (NF)] predniSONE [Deltasone] 40 mg PO QDAY #8 tab 01/01/21 03/13/21 Unknown Rx Active Medications: Generic Name Dose Route Start Last Admin Trade Name Freq PRN Reason Stop Dose Admin Acetaminophen 650 mg 03/31/21 12:41 04/15/21 05:55 Acetaminophen 325 Mg/10.15 Ml Oral Liqd Unit Dose FEEDTUBE 650 mg Q6H PRN Administration TEMP >/=100.4 Albumin Human 25 gm 04/01/21 08:19 04/01/21 16:23 Albumin Human 25% (25 Gm/100 Ml) Inj IV 25 gm KARLOS PRN Administration Hypotension Albuterol 2.5 mg 03/19/21 00:53 Albuterol 2.5 Mg/3 Ml Nebu IH Q4HRT PRN Shortness Of Breath Albuterol/Ipratropium 1 ampul 03/19/21 08:00 04/15/21 07:39 Ipratropium/Albuterol Sulfate 3 Ml Ampul.Neb IH 1 ampul Q6HRT INESSA Administration Lipase/Protease/Amylase 1 each 04/09/21 17:17 Lipase 10,500/Protease 25,000/Amylase 43,750 (Units) Dr White FEEDTUBE PRN PRN For Clogged Feeding Tube Calcium Acetate 1,334 mg 04/03/21 20:00 04/15/21 07:54 Calcium Acetate 667 Mg Cap FEEDTUBE 1,334 mg TID INESSA Administration Dextrose 50 ml 03/14/21 11:02 03/15/21 11:40 Dextrose 50% In Water (25gm) 50 Ml Syringe IV 50 ml Q30MIN PRN Administration Hypoglycemia Protocol Famotidine 10 mg 03/17/21 22:00 04/14/21 22:04 Famotidine 10 Mg Tab PO 10 mg BID INESSA Administration Fentanyl 50 mcg 03/15/21 10:43 04/05/21 21:32 Fentanyl 100 Mcg/2 Ml Inj IV 50 mcg Q10MIN PRN Administration ANALGESIA Hydrocortisone Sodium Succinate 100 mg 04/10/21 00:00 04/15/21 07:54 Hydrocortisone Sod Succ 100 Mg/2 Ml Vial IV 100 mg Q8H INESSA Administration Hydrophilic Ointment 1 applic 03/14/21 17:50 Lip Therapy Vaseline TP Q2HR PRN Dry Lips Fentanyl Citrate 2,000 mcg in 100 mls @ 6.872 mls/hr 03/15/21 11:00 04/15/21 07:09 Fentanyl Drip Premix IV 4 mcg/kg/hr TITR INESSA 27.488 mls/hr Administration Protocol 1 MCG/KG/HR Sodium Chloride 500 mls @ 1 mls/hr 03/16/21 17:19 Nacl 0.9% 500 Ml IV DIRECT PRN ARTERIAL LINE FLUSH Midazolam HCl 100 mg/ Sodium 100 mls @ 1 mls/hr 03/30/21 15:00 04/14/21 15:45 Chloride IV 4 mg/hr TITR INESSA 4 mls/hr Titration Protocol 1 MG/HR Vasopressin 20 unit/ Sodium 101 mls @ 9.09 mls/hr 03/30/21 20:00 04/15/21 07:13 Chloride IV 0.03 units/min TITR INESSA 9.09 mls/hr Infusion 0.03 UNITS/MIN Phenylephrine HCl 100 mg/ 100 mls @ 3 mls/hr 03/31/21 04:00 04/06/21 07:58 Sodium Chloride IV 0 mcg/min TITR INESSA 0 mls/hr Titration Protocol 50 MCG/MIN Sodium Chloride 100 mls @ 999 mls/hr 04/01/21 08:19 Nacl 0.9% IV KARLOS PRN Hypotension Propofol 1,000 mg in 100 mls @ 4.26 mls/hr 04/07/21 13:00 04/12/21 12:52 Diprivan 10 Mg/Ml IV 0 mcg/kg/min TITR INESSA 0 mls/hr Titration Protocol 5 MCG/KG/MIN Micafungin Sodium 100 mg/ 100 mls @ 100 mls/hr 04/09/21 17:00 04/14/21 17:40 Sodium Chloride IV 100 mls/hr Q24H INESSA Administration Protocol Norepinephrine 8 mg/ Sodium 8 mg in 258 mls @ 3.87 mls/hr 04/12/21 04:00 04/15/21 08:20 Chloride IV 0 mcg/min TITRATE INESSA 0 mls/hr Titration Protocol 2 MCG/MIN MEROPENEM/NS 1 GRAM/100 ML 1 gram in 100 mls @ 100 mls/hr 04/12/21 22:00 04/14/21 22:05 Merrem/Ns 1 Gram/100 Ml IV 100 mls/hr Q24H INESSA Administration Protocol Sodium Chloride 1,000 mls @ 1 mls/hr 04/14/21 16:45 04/14/21 16:57 Nacl 0.9% 1000 Ml IV 1 mls/hr DIRECT INESSA Administration Insulin Human Lispro 0 unit 03/14/21 12:00 04/15/21 06:07 Insulin Lispro 100 Unit/Ml SUB-Q Not Given Q6HR INESSA Protocol Lorazepam 1 mg 03/13/21 19:40 03/30/21 19:58 Lorazepam 2 Mg/Ml Vial IV 1 mg Q4H PRN Administration Anxiety Multi-Ingred Cream/Lotion/Oil/Oint 1 applic 03/14/21 17:50 04/10/21 22:03 Mineral Oil/Petrolatum, White Ophth Oint 3.5 Gm OU 1 applic Q4HR PRN Administration Dry Eye(s) Ondansetron HCl 4 mg 03/13/21 19:30 03/21/21 12:05 Ondansetron 4 Mg/2 Ml Inj IV 4 mg Q8H PRN Administration Nausea And Vomiting Quetiapine Fumarate 300 mg 04/06/21 22:00 04/14/21 22:05 Quetiapine 100 Mg Tab PO 300 mg BID INESSA Administration Senna/Docusate Sodium 1 tab 03/14/21 22:00 04/14/21 22:06 Sennosides/Docusate Sodium 8.6/50 Mg Tab FEEDTUBE Not Given BID INESSA Simple Syrup 15 ml 04/09/21 17:17 Simple Syrup 15 Ml FEEDTUBE PRN PRN Hypoglycemia Simple Syrup 30 ml 04/09/21 17:17 Simple Syrup 15 Ml FEEDTUBE PRN PRN Hypoglycemia Sodium Bicarbonate 325 mg 04/09/21 17:17 Sodium Bicarbonate 325 Mg Tab FEEDTUBE PRN PRN For Clogged Feeding Tube Sodium Chloride 10 ml 03/13/21 22:00 04/14/21 22:17 Sodium Chloride 0.9% 10 Ml Flush Syringe IV 10 ml BID INESSA Administration Sodium Chloride 10 ml 03/13/21 19:30 Sodium Chloride 0.9% 10 Ml Flush Syringe IV PRN PRN LINE FLUSH
--- NOTE | 2021-04-15 11:12 | Progress Note ---
Assessment and Plan Acute hypoxemic respiratory failure Acute asthma exacerbation Morbid obesity Crohn's disease Metabolic acidosis Acute kidney injury Coronavirus infection Pneumonia (CAP) Oropharyngeal dysphagia Obesity, if not mentioned above (Padmini will need a tracheostomy once more stable; also discussed care plan extensively with her mother and siblings yesterday re-iterating the gravity of her illness in family conference) - off neosynephrine and Levophed - will consider addition of Midodrine - malachi weaning stress dose steroids - good skin care per RN - transfuse 1 unit pharessed platelets - repeat ABG in am - reduced inspiratory pressure on PCV to 35 cm H2O - s/p left A-line yesterday; - continue care as below otherwise; - HD/UF per nephrology prescription for toxin and volume clearance - wean vasopressors for target MAP > 65 mmHg - nephrology input appreciated; HD/UF for toxin and volume clearance - continue Daily SAT and SBT assessment as tolerated - continue to wean supplemental oxygen for target O2 sat's > 90% acutely - VAP bundle addressed - continue lung protective strategies - continue bronchodilators with pulmonary hygiene per RT - wean per pulmonary driven protocols otherwise - continue accuchecks with glycemic control per SSI (While critically ill target blood glucose of 140-180 mg/dL; avoid hypoglycemia) - sedation prn for target RASS 0 to -1 - avoid nephrotoxins, renally dose all medications - continue to avoid benzodiazepine's, reduce the possibility of delirium - de-escalate AB's per ID rec's - prn analgesia per CPOT score - Maintenance of sleep-wake cycle, avoid delirium - continue enteral nutritional support at goal rate as tolerated - G.I. & VTE prophylaxis - PT/OT/ROM exercises - continue mobility protocols for pressure ulcer prophylaxis - Monitor hemodynamics closely - continue other care per attending / other consultants - discharge planning ongoing concurrently COVID SPECIFIC INTERVENTIONS - Isolation discontinued - s/p Actemra - Remdesivir as per ID/Pulmonary developed protocols (not a candidate) - continue systemic steroids for severe COVID-19 infection empirically - repeat COVID tests result negative - zinc and vitamin C supplementation - Monitor inflammatory markers per facility protocol - ferritin, Ddimer, CRP - therapeutic anticoagulation per system Protocol based on d-dimer and clinical considerations (VTE prophylaxis) - Continue contact and airborne isolation .... Re-evaluate in am & prn CONDITION: CRITICAL PROGNOSIS: GUARDED CODE STATUS: FULL CODE The high probability of a clinically significant, sudden or life-threatening deterioration of the [respiratory, cardiovascular, renal & neurologic] system(s) required my full and direct attention, intervention and personal management. The aggregate critical care time was [33] minutes without overlap. Time includes spent on; [x] Data Review and interpretation [x] Patient assessment and monitoring of vital signs [x] Documentation [x] Medication orders and management Subjective Date of service: 04/15/21 Principal diagnosis: Ac hypoxemic resp failure; AE-Asthma; SAI; Crohn's; COVID-19; Pneumonia Interval history: Patient is seen today for: Acute hypoxemic respiratory failure; AE-Asthma; SAI; Crohn's disease; COVID-19 infection; Pneumonia (CAP) Seen and examined at bedside; 24hour events reviewed; nursing and respiratory care staff consulted; no adverse overnight events reported to me; resting in bed; remains on MVS; thrombocytopenia is persistent and still oozing from oropharynx albeit a little better; dry skin / scaling is progressive but healthy skin underneath; no dialysis today Objective Vital Signs - 12hr 04/14/21 04/14/21 04/14/21 23:16 23:30 23:46 Temperature Pulse Rate 129 H 128 H 128 H Pulse Rate [ Anterior Bilateral Throughout] Pulse Rate [ From Monitor] Respiratory 16 15 16 Rate Respiratory Rate [Anterior Bilateral Throughout] Blood Pressure 140/76 140/76 140/76 O2 Sat by Pulse 100 100 100 Oximetry 04/15/21 04/15/21 04/15/21 00:00 00:16 00:30 Temperature 101.5 F H Pulse Rate 129 H 129 H 132 H Pulse Rate [ Anterior Bilateral Throughout] Pulse Rate [ 128 H From Monitor] Respiratory 15 14 16 Rate Respiratory Rate [Anterior Bilateral Throughout] Blood Pressure 140/76 140/76 140/76 O2 Sat by Pulse 100 100 100 Oximetry 04/15/21 04/15/21 04/15/21 00:46 00:54 01:00 Temperature Pulse Rate 134 H 134 H 134 H Pulse Rate [ Anterior Bilateral Throughout] Pulse Rate [ From Monitor] Respiratory 18 18 Rate Respiratory Rate [Anterior Bilateral Throughout] Blood Pressure 140/76 115/36 140/76 O2 Sat by Pulse 100 100 100 Oximetry 04/15/21 04/15/21 04/15/21 01:16 01:30 01:46 Temperature Pulse Rate 134 H 135 H 136 H Pulse Rate [ Anterior Bilateral Throughout] Pulse Rate [ From Monitor] Respiratory 17 19 19 Rate Respiratory Rate [Anterior Bilateral Throughout] Blood Pressure 140/76 140/76 140/76 O2 Sat by Pulse 100 100 100 Oximetry 04/15/21 04/15/21 04/15/21 02:00 02:16 02:30 Temperature Pulse Rate 138 H 136 H 136 H Pulse Rate [ Anterior Bilateral Throughout] Pulse Rate [ From Monitor] Respiratory 19 18 18 Rate Respiratory Rate [Anterior Bilateral Throughout] Blood Pressure 140/76 140/76 140/76 O2 Sat by Pulse 100 100 100 Oximetry 04/15/21 04/15/21 04/15/21 02:46 03:00 03:16 Temperature Pulse Rate 135 H 132 H 138 H Pulse Rate [ Anterior Bilateral Throughout] Pulse Rate [ From Monitor] Respiratory 17 17 23 Rate Respiratory Rate [Anterior Bilateral Throughout] Blood Pressure 140/76 140/76 140/76 O2 Sat by Pulse 100 100 98 Oximetry 04/15/21 04/15/21 04/15/21 03:30 03:41 03:46 Temperature 102.0 F H Pulse Rate 138 H 132 H Pulse Rate [ Anterior Bilateral Throughout] Pulse Rate [ From Monitor] Respiratory 19 17 Rate Respiratory Rate [Anterior Bilateral Throughout] Blood Pressure 140/76 140/76 O2 Sat by Pulse 100 100 Oximetry 04/15/21 04/15/21 04/15/21 03:48 04:00 04:16 Temperature 102.0 F H Pulse Rate 133 H 135 H 138 H Pulse Rate [ Anterior Bilateral Throughout] Pulse Rate [ 128 H From Monitor] Respiratory 30 H 22 Rate Respiratory Rate [Anterior Bilateral Throughout] Blood Pressure 135/42 140/76 140/76 O2 Sat by Pulse 100 96 100 Oximetry 04/15/21 04/15/21 04/15/21 04:30 04:46 05:00 Temperature Pulse Rate 138 H 138 H 137 H Pulse Rate [ Anterior Bilateral Throughout] Pulse Rate [ From Monitor] Respiratory 22 21 20 Rate Respiratory Rate [Anterior Bilateral Throughout] Blood Pressure 140/76 140/76 140/76 O2 Sat by Pulse 98 98 99 Oximetry 04/15/21 04/15/21 04/15/21 05:16 05:30 05:46 Temperature Pulse Rate 134 H 132 H 133 H Pulse Rate [ Anterior Bilateral Throughout] Pulse Rate [ From Monitor] Respiratory 21 19 21 Rate Respiratory Rate [Anterior Bilateral Throughout] Blood Pressure 140/76 140/76 140/76 O2 Sat by Pulse 99 100 100 Oximetry 04/15/21 04/15/21 04/15/21 06:00 06:16 06:30 Temperature Pulse Rate 137 H 135 H 134 H Pulse Rate [ Anterior Bilateral Throughout] Pulse Rate [ From Monitor] Respiratory 20 21 20 Rate Respiratory Rate [Anterior Bilateral Throughout] Blood Pressure 140/76 140/76 140/76 O2 Sat by Pulse 100 100 100 Oximetry 04/15/21 04/15/21 04/15/21 06:46 07:00 07:16 Temperature Pulse Rate 142 H 137 H 131 H Pulse Rate [ Anterior Bilateral Throughout] Pulse Rate [ From Monitor] Respiratory 22 20 19 Rate Respiratory Rate [Anterior Bilateral Throughout] Blood Pressure 140/76 140/76 140/76 O2 Sat by Pulse 95 98 98 Oximetry 04/15/21 04/15/21 04/15/21 07:30 07:39 07:41 Temperature 102.0 F H Pulse Rate 127 H 124 H Pulse Rate [ 126 H Anterior Bilateral Throughout] Pulse Rate [ From Monitor] Respiratory 25 H Rate Respiratory 32 H Rate [Anterior Bilateral Throughout] Blood Pressure 140/76 126/61 O2 Sat by Pulse 97 98 Oximetry 04/15/21 04/15/21 04/15/21 07:46 08:00 08:16 Temperature Pulse Rate 130 H 138 H 137 H Pulse Rate [ Anterior Bilateral Throughout] Pulse Rate [ 138 H From Monitor] Respiratory 16 22 37 H Rate Respiratory Rate [Anterior Bilateral Throughout] Blood Pressure 140/76 140/76 140/76 O2 Sat by Pulse 100 98 96 Oximetry 04/15/21 04/15/21 04/15/21 08:30 08:46 09:00 Temperature Pulse Rate 134 H 131 H 129 H Pulse Rate [ Anterior Bilateral Throughout] Pulse Rate [ From Monitor] Respiratory 31 H 24 30 H Rate Respiratory Rate [Anterior Bilateral Throughout] Blood Pressure 140/76 140/76 140/76 O2 Sat by Pulse 99 99 99 Oximetry 04/15/21 04/15/21 04/15/21 09:16 09:30 09:46 Temperature Pulse Rate 127 H 130 H 135 H Pulse Rate [ Anterior Bilateral Throughout] Pulse Rate [ From Monitor] Respiratory 25 H 21 26 H Rate Respiratory Rate [Anterior Bilateral Throughout] Blood Pressure 140/76 140/76 140/76 O2 Sat by Pulse 100 100 97 Oximetry Constitutional: no acute distress, other (morbidly obese female with mild ventilator dyssynchrony) Eyes: non-icteric, other (scleral erythema / bleeding is improving) ENT: oropharynx moist, oropharyngeal exudate pre (serosanguinous), other (ETT 25 cm BALJINDER) Neck: supple, no lymphadenopathy, no JVD, other (large circumference) Effort: mildly labored Ascultation: Bilateral: diminished breath sounds, rhonchi Percussion: Bilateral: not dull Cardiovascular: regular rate and rhythm Gastrointestinal: normoactive bowel sounds, soft, non-tender, non-distended (protuberant) Integumentary: rash (now scaling / drying), other Extremities: no cyanosis, pulses normal, no ischemia or petechiae, edema (1+) Neurologic: pupils equal and round, CN II-XII normal, other (unasble to assess re: AMS) Psychiatric: other (unasble to assess) CBC and BMP: 04/15/21 Unknown 04/15/21 Unknown ABG, PT/INR, D-dimer: ABG ABG pH 7.207 (7.320-7.450) L 04/14/21 21:00 POC ABG pCO2 67.6 mmHg (32.0-48.0) H 04/14/21 21:00 ABG pCO2 68.6 mm Hg 04/13/21 03:52 POC ABG pO2 143.7 mmHg (83-108) H 04/14/21 21:00 ABG pO2 98.9 mm Hg (80.0-90.0) H 04/13/21 03:52 POC ABG HCO3 26.2 04/14/21 21:00 ABG O2 Saturation 98.8 (0-100) 04/14/21 21:00 PT/INR, D-dimer PT 16.3 Sec. (12.2-14.9) H 04/15/21 Unknown INR 1.18 (0.87-1.13) H 04/15/21 Unknown D-Dimer 2696.79 ng/mlDDU (0-234) H 04/08/21 04:40 Abnormal lab findings: Abnormal Labs 03/13/21 03/13/21 03/13/21 13:26 13:26 15:40 WBC RBC Hgb Hct MCH 27 L MCHC RDW 17.0 H Plt Count Lymph % (Auto) [place] # (Auto) Eos # (Auto) Seg Neutrophils % Lymphocytes % (Manual) Eosinophils % (Manual) Basophils % (Manual) Nucleated RBC % Seg Neutrophils # Seg Neutrophils # Man Lymphocytes # (Manual) Monocytes # (Manual) Eosinophils # (Manual) Basophils # (Manual) Percent Retic PT INR Fibrinogen D-Dimer ABG pH POC ABG pCO2 POC ABG pO2 ABG pO2 ABG HCO3 ABG O2 Saturation ABG Base Excess ABG Hemoglobin ABG Oxyhemoglobin ABG Sodium ABG Potassium ABG Chloride ABG Glucose Oxyhemoglobin Carboxyhemoglobin Sodium 136 L Potassium Chloride Carbon Dioxide BUN Creatinine Glucose 125 H 130 H POC Glucose Hemoglobin A1c Calcium Phosphorus Magnesium AST ALT Alkaline Phosphatase Lactate Dehydrogenase 235 H C-Reactive Protein 4.30 H Total Protein Albumin Triglycerides Arterial Blood Glucose Arterial Blood Ionized Calcium Urine WBC (Auto) U Epithel Cells (Auto) Urine Creatinine Random Vancomycin Coronavirus (PCR) Crossmatch 03/13/21 03/14/21 03/14/21 21:33 03:35 06:21 WBC 20.0 H RBC Hgb Hct MCH 27 L MCHC RDW 17.5 H Plt Count Lymph % (Auto) 7.8 L [place] # (Auto) 1.3 H Eos # (Auto) Seg Neutrophils % 85.4 H Lymphocytes % (Manual) Eosinophils % (Manual) Basophils % (Manual) Nucleated RBC % Seg Neutrophils # 17.1 H Seg Neutrophils # Man Lymphocytes # (Manual) Monocytes # (Manual) Eosinophils # (Manual) Basophils # (Manual) Percent Retic PT INR Fibrinogen D-Dimer ABG pH 7.323 L 7.234 L POC ABG pCO2 POC ABG pO2 ABG pO2 69.8 L ABG HCO3 ABG O2 Saturation 92.9 L 94.9 L ABG Base Excess -3.3 L -5.4 L ABG Hemoglobin ABG Oxyhemoglobin ABG Sodium ABG Potassium ABG Chloride ABG Glucose Oxyhemoglobin 91.2 L 93.2 L Carboxyhemoglobin Sodium Potassium Chloride Carbon Dioxide BUN Creatinine Glucose POC Glucose Hemoglobin A1c Calcium Phosphorus Magnesium AST ALT Alkaline Phosphatase Lactate Dehydrogenase C-Reactive Protein Total Protein Albumin Triglycerides Arterial Blood Glucose Arterial Blood Ionized Calcium Urine WBC (Auto) U Epithel Cells (Auto) Urine Creatinine Random Vancomycin Coronavirus (PCR) Crossmatch 03/14/21 03/14/21 03/14/21 06:21 07:47 11:21 WBC RBC Hgb Hct MCH MCHC RDW Plt Count Lymph % (Auto) [place] # (Auto) Eos # (Auto) Seg Neutrophils % Lymphocytes % (Manual) Eosinophils % (Manual) Basophils % (Manual) Nucleated RBC % Seg Neutrophils # Seg Neutrophils # Man Lymphocytes # (Manual) Monocytes # (Manual) Eosinophils # (Manual) Basophils # (Manual) Percent Retic PT INR Fibrinogen D-Dimer ABG pH POC ABG pCO2 POC ABG pO2 ABG pO2 ABG HCO3 ABG O2 Saturation ABG Base Excess ABG Hemoglobin ABG Oxyhemoglobin ABG Sodium ABG Potassium ABG Chloride ABG Glucose Oxyhemoglobin Carboxyhemoglobin Sodium 136 L 136 L Potassium 6.2 H* D 5.4 H Chloride Carbon Dioxide 21 L 21 L BUN Creatinine 1.5 H D 1.8 H Glucose 144 H 141 H POC Glucose 147 H Hemoglobin A1c Calcium Phosphorus Magnesium AST ALT Alkaline Phosphatase Lactate Dehydrogenase C-Reactive Protein Total Protein 8.7 H 9.2 H Albumin 3.8 L Triglycerides Arterial Blood Glucose Arterial Blood Ionized Calcium Urine WBC (Auto) U Epithel Cells (Auto) Urine Creatinine Random Vancomycin Coronavirus (PCR) Crossmatch 03/14/21 03/14/21 03/14/21 17:29 17:50 18:35 WBC RBC Hgb Hct MCH MCHC RDW Plt Count Lymph % (Auto) [place] # (Auto) Eos # (Auto) Seg Neutrophils % Lymphocytes % (Manual) Eosinophils % (Manual) Basophils % (Manual) Nucleated RBC % Seg Neutrophils # Seg Neutrophils # Man Lymphocytes # (Manual) Monocytes # (Manual) Eosinophils # (Manual) Basophils # (Manual) Percent Retic PT INR Fibrinogen D-Dimer ABG pH POC ABG pCO2 POC ABG pO2 ABG pO2 ABG HCO3 ABG O2 Saturation ABG Base Excess ABG Hemoglobin ABG Oxyhemoglobin ABG Sodium ABG Potassium ABG Chloride ABG Glucose Oxyhemoglobin Carboxyhemoglobin Sodium 135 L Potassium 6.4 H* Chloride Carbon Dioxide 15 L BUN 26 H Creatinine 3.4 H D Glucose 165 H POC Glucose 209 H Hemoglobin A1c Calcium Phosphorus Magnesium AST ALT Alkaline Phosphatase Lactate Dehydrogenase C-Reactive Protein Total Protein Albumin Triglycerides Arterial Blood Glucose Arterial Blood Ionized Calcium Urine WBC (Auto) U Epithel Cells (Auto) Urine Creatinine 40.1 H Random Vancomycin Coronavirus (PCR) Crossmatch 10/31/21 10/31/21 10/31/21 18:46 22:23 23:52 WBC RBC Hgb Hct MCH MCHC RDW Plt Count Lymph % (Auto) [place] # (Auto) Eos # (Auto) Seg Neutrophils % Lymphocytes % (Manual) Eosinophils % (Manual) Basophils % (Manual) Nucleated RBC % Seg Neutrophils # Seg Neutrophils # Man Lymphocytes # (Manual) Monocytes # (Manual) Eosinophils # (Manual) Basophils # (Manual) Percent Retic PT INR Fibrinogen D-Dimer ABG pH 7.270 L POC ABG pCO2 POC ABG pO2 63.4 L ABG pO2 ABG HCO3 ABG O2 Saturation ABG Base Excess ABG Hemoglobin ABG Oxyhemoglobin 90.2 L ABG Sodium 134.9 L ABG Potassium 5.3 H ABG Chloride ABG Glucose 134 H Oxyhemoglobin Carboxyhemoglobin Sodium 136 L Potassium 5.2 H Chloride Carbon Dioxide 20 L BUN 29 H Creatinine 3.6 H Glucose 236 H POC Glucose 128 H Hemoglobin A1c Calcium Phosphorus Magnesium AST ALT Alkaline Phosphatase Lactate Dehydrogenase C-Reactive Protein Total Protein Albumin 3.2 L Triglycerides Arterial Blood Glucose 134 H Arterial Blood Ionized Calcium Urine WBC (Auto) U Epithel Cells (Auto) Urine Creatinine Random Vancomycin Coronavirus (PCR) Crossmatch 03/14/21 03/15/21 03/15/21 Unknown 05:00 05:09 WBC 22.5 H RBC Hgb Hct MCH 27 L MCHC RDW 17.6 H Plt Count Lymph % (Auto) [place] # (Auto) Eos # (Auto) Seg Neutrophils % Lymphocytes % (Manual) Eosinophils % (Manual) Basophils % (Manual) Nucleated RBC % Seg Neutrophils # Seg Neutrophils # Man Lymphocytes # (Manual) Monocytes # (Manual) Eosinophils # (Manual) Basophils # (Manual) Percent Retic PT INR Fibrinogen D-Dimer ABG pH POC ABG pCO2 POC ABG pO2 ABG pO2 ABG HCO3 ABG O2 Saturation ABG Base Excess ABG Hemoglobin ABG Oxyhemoglobin ABG Sodium ABG Potassium ABG Chloride ABG Glucose Oxyhemoglobin Carboxyhemoglobin Sodium Potassium Chloride Carbon Dioxide BUN Creatinine Glucose POC Glucose 116 H Hemoglobin A1c Calcium Phosphorus Magnesium AST ALT Alkaline Phosphatase Lactate Dehydrogenase C-Reactive Protein Total Protein Albumin Triglycerides Arterial Blood Glucose Arterial Blood Ionized Calcium Urine WBC (Auto) U Epithel Cells (Auto) Urine Creatinine Random Vancomycin Coronavirus (PCR) Positive A Crossmatch 03/15/21 03/15/21 03/15/21 05:09 05:09 05:09 WBC RBC Hgb Hct MCH MCHC RDW Plt Count Lymph % (Auto) [place] # (Auto) Eos # (Auto) Seg Neutrophils % Lymphocytes % (Manual) Eosinophils % (Manual) Basophils % (Manual) Nucleated RBC % Seg Neutrophils # Seg Neutrophils # Man Lymphocytes # (Manual) Monocytes # (Manual) Eosinophils # (Manual) Basophils # (Manual) Percent Retic PT INR Fibrinogen D-Dimer ABG pH POC ABG pCO2 POC ABG pO2 ABG pO2 ABG HCO3 ABG O2 Saturation ABG Base Excess ABG Hemoglobin ABG Oxyhemoglobin ABG Sodium ABG Potassium ABG Chloride ABG Glucose Oxyhemoglobin Carboxyhemoglobin Sodium 136 L Potassium 6.5 H* D Chloride Carbon Dioxide 17 L BUN 41 H Creatinine 5.3 H Glucose 128 H POC Glucose Hemoglobin A1c 6.3 H Calcium Phosphorus Magnesium AST ALT Alkaline Phosphatase Lactate Dehydrogenase C-Reactive Protein 12.10 H Total Protein Albumin 3.1 L Triglycerides Arterial Blood Glucose Arterial Blood Ionized Calcium Urine WBC (Auto) U Epithel Cells (Auto) Urine Creatinine Random Vancomycin Coronavirus (PCR) Crossmatch 03/15/21 03/15/21 03/15/21 10:00 21:50 23:39 WBC RBC Hgb Hct MCH MCHC RDW Plt Count Lymph % (Auto) [place] # (Auto) Eos # (Auto) Seg Neutrophils % Lymphocytes % (Manual) Eosinophils % (Manual) Basophils % (Manual) Nucleated RBC % Seg Neutrophils # Seg Neutrophils # Man Lymphocytes # (Manual) Monocytes # (Manual) Eosinophils # (Manual) Basophils # (Manual) Percent Retic PT INR Fibrinogen D-Dimer ABG pH 7.098 L POC ABG pCO2 72.7 H POC ABG pO2 ABG pO2 162.5 H ABG HCO3 ABG O2 Saturation ABG Base Excess ABG Hemoglobin 10.1 L ABG Oxyhemoglobin ABG Sodium ABG Potassium 5.7 H ABG Chloride ABG Glucose Oxyhemoglobin Carboxyhemoglobin 0.4 L Sodium Potassium Chloride Carbon Dioxide BUN Creatinine Glucose POC Glucose 156 H Hemoglobin A1c Calcium Phosphorus Magnesium AST ALT Alkaline Phosphatase Lactate Dehydrogenase C-Reactive Protein Total Protein Albumin Triglycerides Arterial Blood Glucose Arterial Blood Ionized Calcium Urine WBC (Auto) U Epithel Cells (Auto) Urine Creatinine Random Vancomycin Coronavirus (PCR) Crossmatch 03/16/21 03/16/21 03/16/21 05:00 05:30 05:30 WBC 16.7 H RBC 3.59 L Hgb 9.6 L Hct 30.1 L MCH 27 L MCHC RDW 17.5 H Plt Count Lymph % (Auto) [place] # (Auto) Eos # (Auto) Seg Neutrophils % Lymphocytes % (Manual) Eosinophils % (Manual) Basophils % (Manual) Nucleated RBC % Seg Neutrophils # Seg Neutrophils # Man Lymphocytes # (Manual) Monocytes # (Manual) Eosinophils # (Manual) Basophils # (Manual) Percent Retic PT INR Fibrinogen D-Dimer ABG pH POC ABG pCO2 POC ABG pO2 ABG pO2 ABG HCO3 ABG O2 Saturation ABG Base Excess ABG Hemoglobin ABG Oxyhemoglobin ABG Sodium ABG Potassium ABG Chloride ABG Glucose Oxyhemoglobin Carboxyhemoglobin Sodium Potassium Chloride Carbon Dioxide BUN 46 H Creatinine 6.2 H Glucose 131 H POC Glucose Hemoglobin A1c Calcium Phosphorus 6.00 H D Magnesium AST ALT Alkaline Phosphatase Lactate Dehydrogenase 318 H C-Reactive Protein 18.60 H Total Protein Albumin 3.0 L Triglycerides Arterial Blood Glucose Arterial Blood Ionized Calcium Urine WBC (Auto) U Epithel Cells (Auto) Urine Creatinine Random Vancomycin Coronavirus (PCR) Crossmatch 03/16/21 03/16/21 03/16/21 05:51 06:37 08:58 WBC RBC Hgb Hct MCH MCHC RDW Plt Count Lymph % (Auto) [place] # (Auto) Eos # (Auto) Seg Neutrophils % Lymphocytes % (Manual) Eosinophils % (Manual) Basophils % (Manual) Nucleated RBC % Seg Neutrophils # Seg Neutrophils # Man Lymphocytes # (Manual) Monocytes # (Manual) Eosinophils # (Manual) Basophils # (Manual) Percent Retic PT INR Fibrinogen D-Dimer 3041.12 H ABG pH POC ABG pCO2 POC ABG pO2 ABG pO2 141.5 H ABG HCO3 ABG O2 Saturation ABG Base Excess ABG Hemoglobin 9.7 L ABG Oxyhemoglobin ABG Sodium ABG Potassium ABG Chloride ABG Glucose Oxyhemoglobin Carboxyhemoglobin Sodium Potassium Chloride Carbon Dioxide BUN Creatinine Glucose POC Glucose 126 H Hemoglobin A1c Calcium Phosphorus Magnesium AST ALT Alkaline Phosphatase Lactate Dehydrogenase C-Reactive Protein Total Protein Albumin Triglycerides Arterial Blood Glucose Arterial Blood Ionized Calcium Urine WBC (Auto) U Epithel Cells (Auto) Urine Creatinine Random Vancomycin Coronavirus (PCR) Crossmatch 03/16/21 03/16/21 03/16/21 12:11 16:51 21:00 WBC RBC Hgb Hct MCH MCHC RDW Plt Count Lymph % (Auto) [place] # (Auto) Eos # (Auto) Seg Neutrophils % Lymphocytes % (Manual) Eosinophils % (Manual) Basophils % (Manual) Nucleated RBC % Seg Neutrophils # Seg Neutrophils # Man Lymphocytes # (Manual) Monocytes # (Manual) Eosinophils # (Manual) Basophils # (Manual) Percent Retic PT INR Fibrinogen D-Dimer ABG pH 7.239 L POC ABG pCO2 61.5 H POC ABG pO2 80.8 L ABG pO2 ABG HCO3 ABG O2 Saturation ABG Base Excess ABG Hemoglobin 11.4 L ABG Oxyhemoglobin 93.5 L ABG Sodium ABG Potassium 5.4 H ABG Chloride ABG Glucose 137 H Oxyhemoglobin Carboxyhemoglobin 0.2 L Sodium Potassium Chloride Carbon Dioxide BUN Creatinine Glucose POC Glucose 156 H 133 H Hemoglobin A1c Calcium Phosphorus Magnesium AST ALT Alkaline Phosphatase Lactate Dehydrogenase C-Reactive Protein Total Protein Albumin Triglycerides Arterial Blood Glucose 137 H Arterial Blood Ionized Calcium Urine WBC (Auto) U Epithel Cells (Auto) Urine Creatinine Random Vancomycin Coronavirus (PCR) Crossmatch 03/16/21 03/17/21 03/17/21 23:42 05:23 05:23 WBC 18.4 H RBC Hgb Hct MCH 27 L MCHC RDW 17.4 H Plt Count Lymph % (Auto) [place] # (Auto) Eos # (Auto) Seg Neutrophils % Lymphocytes % (Manual) Eosinophils % (Manual) Basophils % (Manual) Nucleated RBC % Seg Neutrophils # Seg Neutrophils # Man Lymphocytes # (Manual) Monocytes # (Manual) Eosinophils # (Manual) Basophils # (Manual) Percent Retic PT INR Fibrinogen D-Dimer ABG pH POC ABG pCO2 POC ABG pO2 ABG pO2 ABG HCO3 ABG O2 Saturation ABG Base Excess ABG Hemoglobin ABG Oxyhemoglobin ABG Sodium ABG Potassium ABG Chloride ABG Glucose Oxyhemoglobin Carboxyhemoglobin Sodium Potassium 5.2 H Chloride Carbon Dioxide 21 L BUN 79 H Creatinine 8.6 H Glucose 124 H POC Glucose 133 H Hemoglobin A1c Calcium Phosphorus Magnesium AST ALT Alkaline Phosphatase Lactate Dehydrogenase C-Reactive Protein Total Protein Albumin 3.2 L Triglycerides 285 H Arterial Blood Glucose Arterial Blood Ionized Calcium Urine WBC (Auto) U Epithel Cells (Auto) Urine Creatinine Random Vancomycin Coronavirus (PCR) Crossmatch 03/17/21 03/17/21 03/17/21 05:23 10:48 12:20 WBC RBC Hgb Hct MCH MCHC RDW Plt Count Lymph % (Auto) [place] # (Auto) Eos # (Auto) Seg Neutrophils % Lymphocytes % (Manual) Eosinophils % (Manual) Basophils % (Manual) Nucleated RBC % Seg Neutrophils # Seg Neutrophils # Man Lymphocytes # (Manual) Monocytes # (Manual) Eosinophils # (Manual) Basophils # (Manual) Percent Retic PT INR Fibrinogen D-Dimer ABG pH 7.294 L POC ABG pCO2 POC ABG pO2 ABG pO2 90.3 H ABG HCO3 ABG O2 Saturation ABG Base Excess ABG Hemoglobin 9.9 L ABG Oxyhemoglobin ABG Sodium ABG Potassium ABG Chloride ABG Glucose Oxyhemoglobin Carboxyhemoglobin Sodium Potassium 5.2 H Chloride Carbon Dioxide 21 L BUN 79 H Creatinine 8.4 H Glucose 125 H POC Glucose 171 H Hemoglobin A1c Calcium Phosphorus 9.90 H D Magnesium 2.40 H AST ALT Alkaline Phosphatase Lactate Dehydrogenase C-Reactive Protein Total Protein Albumin Triglycerides Arterial Blood Glucose Arterial Blood Ionized Calcium Urine WBC (Auto) U Epithel Cells (Auto) Urine Creatinine Random Vancomycin Coronavirus (PCR) Crossmatch 03/17/21 03/17/21 03/18/21 17:24 21:00 04:30 WBC RBC Hgb Hct MCH MCHC RDW Plt Count Lymph % (Auto) [place] # (Auto) Eos # (Auto) Seg Neutrophils % Lymphocytes % (Manual) Eosinophils % (Manual) Basophils % (Manual) Nucleated RBC % Seg Neutrophils # Seg Neutrophils # Man Lymphocytes # (Manual) Monocytes # (Manual) Eosinophils # (Manual) Basophils # (Manual) Percent Retic PT INR Fibrinogen D-Dimer 9953.09 H ABG pH 7.310 L POC ABG pCO2 54.5 H POC ABG pO2 62.3 L ABG pO2 ABG HCO3 ABG O2 Saturation ABG Base Excess ABG Hemoglobin 10.2 L ABG Oxyhemoglobin 88.6 L ABG Sodium ABG Potassium 4.7 H ABG Chloride ABG Glucose 99 H Oxyhemoglobin Carboxyhemoglobin 0.3 L Sodium Potassium Chloride Carbon Dioxide BUN Creatinine Glucose POC Glucose 121 H Hemoglobin A1c Calcium Phosphorus Magnesium AST ALT Alkaline Phosphatase Lactate Dehydrogenase C-Reactive Protein Total Protein Albumin Triglycerides Arterial Blood Glucose 99 H Arterial Blood Ionized Calcium 4.3 L Urine WBC (Auto) U Epithel Cells (Auto) Urine Creatinine Random Vancomycin Coronavirus (PCR) Crossmatch 03/18/21 03/18/21 03/18/21 04:30 04:30 11:34 WBC 12.8 H RBC 3.49 L Hgb 9.4 L Hct 29.3 L MCH 27 L MCHC RDW 17.4 H Plt Count Lymph % (Auto) [place] # (Auto) Eos # (Auto) Seg Neutrophils % Lymphocytes % (Manual) Eosinophils % (Manual) Basophils % (Manual) Nucleated RBC % Seg Neutrophils # Seg Neutrophils # Man Lymphocytes # (Manual) Monocytes # (Manual) Eosinophils # (Manual) Basophils # (Manual) Percent Retic PT INR Fibrinogen D-Dimer ABG pH POC ABG pCO2 POC ABG pO2 ABG pO2 ABG HCO3 ABG O2 Saturation ABG Base Excess ABG Hemoglobin ABG Oxyhemoglobin ABG Sodium ABG Potassium ABG Chloride ABG Glucose Oxyhemoglobin Carboxyhemoglobin Sodium Potassium Chloride Carbon Dioxide BUN 69 H Creatinine 7.3 H Glucose POC Glucose 114 H Hemoglobin A1c Calcium 8.2 L Phosphorus 7.60 H D Magnesium AST ALT Alkaline Phosphatase Lactate Dehydrogenase 477 H C-Reactive Protein 6.90 H Total Protein Albumin Triglycerides Arterial Blood Glucose Arterial Blood Ionized Calcium Urine WBC (Auto) U Epithel Cells (Auto) Urine Creatinine Random Vancomycin Coronavirus (PCR) Crossmatch 03/18/21 03/19/21 03/19/21 21:44 04:13 04:13 WBC 13.7 H RBC 3.32 L Hgb 9.0 L Hct 28.1 L MCH 27 L MCHC RDW 16.9 H Plt Count Lymph % (Auto) [place] # (Auto) Eos # (Auto) Seg Neutrophils % Lymphocytes % (Manual) Eosinophils % (Manual) Basophils % (Manual) Nucleated RBC % Seg Neutrophils # Seg Neutrophils # Man Lymphocytes # (Manual) Monocytes # (Manual) Eosinophils # (Manual) Basophils # (Manual) Percent Retic PT INR Fibrinogen D-Dimer ABG pH 7.290 L POC ABG pCO2 POC ABG pO2 ABG pO2 119.7 H ABG HCO3 28.0 H ABG O2 Saturation ABG Base Excess ABG Hemoglobin 9.6 L ABG Oxyhemoglobin ABG Sodium ABG Potassium ABG Chloride ABG Glucose Oxyhemoglobin Carboxyhemoglobin Sodium Potassium Chloride Carbon Dioxide BUN Creatinine Glucose POC Glucose Hemoglobin A1c Calcium Phosphorus Magnesium AST ALT Alkaline Phosphatase Lactate Dehydrogenase C-Reactive Protein Total Protein Albumin Triglycerides Arterial Blood Glucose Arterial Blood Ionized Calcium Urine WBC (Auto) U Epithel Cells (Auto) Urine Creatinine Random Vancomycin 43.5 H Coronavirus (PCR) Crossmatch 03/19/21 03/19/21 03/19/21 04:13 05:59 11:40 WBC RBC Hgb Hct MCH MCHC RDW Plt Count Lymph % (Auto) [place] # (Auto) Eos # (Auto) Seg Neutrophils % Lymphocytes % (Manual) Eosinophils % (Manual) Basophils % (Manual) Nucleated RBC % Seg Neutrophils # Seg Neutrophils # Man Lymphocytes # (Manual) Monocytes # (Manual) Eosinophils # (Manual) Basophils # (Manual) Percent Retic PT INR Fibrinogen D-Dimer ABG pH POC ABG pCO2 POC ABG pO2 ABG pO2 ABG HCO3 ABG O2 Saturation ABG Base Excess ABG Hemoglobin ABG Oxyhemoglobin ABG Sodium ABG Potassium ABG Chloride ABG Glucose Oxyhemoglobin Carboxyhemoglobin Sodium Potassium Chloride Carbon Dioxide BUN 55 H Creatinine 7.0 H Glucose POC Glucose 116 H 145 H Hemoglobin A1c Calcium 8.1 L Phosphorus 7.90 H Magnesium AST ALT Alkaline Phosphatase Lactate Dehydrogenase C-Reactive Protein Total Protein Albumin Triglycerides Arterial Blood Glucose Arterial Blood Ionized Calcium Urine WBC (Auto) U Epithel Cells (Auto) Urine Creatinine Random Vancomycin Coronavirus (PCR) Crossmatch 03/19/21 03/19/21 03/20/21 17:01 23:41 04:00 WBC 15.6 H RBC 3.55 L Hgb 9.6 L Hct MCH 27 L MCHC RDW 16.8 H Plt Count 139 L Lymph % (Auto) [place] # (Auto) Eos # (Auto) Seg Neutrophils % Lymphocytes % (Manual) Eosinophils % (Manual) Basophils % (Manual) Nucleated RBC % Seg Neutrophils # Seg Neutrophils # Man Lymphocytes # (Manual) Monocytes # (Manual) Eosinophils # (Manual) Basophils # (Manual) Percent Retic PT INR Fibrinogen D-Dimer ABG pH POC ABG pCO2 POC ABG pO2 ABG pO2 ABG HCO3 ABG O2 Saturation ABG Base Excess ABG Hemoglobin ABG Oxyhemoglobin ABG Sodium ABG Potassium ABG Chloride ABG Glucose Oxyhemoglobin Carboxyhemoglobin Sodium Potassium Chloride Carbon Dioxide BUN Creatinine Glucose POC Glucose 111 H 118 H Hemoglobin A1c Calcium Phosphorus Magnesium AST ALT Alkaline Phosphatase Lactate Dehydrogenase C-Reactive Protein Total Protein Albumin Triglycerides Arterial Blood Glucose Arterial Blood Ionized Calcium Urine WBC (Auto) U Epithel Cells (Auto) Urine Creatinine Random Vancomycin Coronavirus (PCR) Crossmatch 03/20/21 03/20/21 03/20/21 04:00 04:00 04:37 WBC RBC Hgb Hct MCH MCHC RDW Plt Count Lymph % (Auto) [place] # (Auto) Eos # (Auto) Seg Neutrophils % Lymphocytes % (Manual) Eosinophils % (Manual) Basophils % (Manual) Nucleated RBC % Seg Neutrophils # Seg Neutrophils # Man Lymphocytes # (Manual) Monocytes # (Manual) Eosinophils # (Manual) Basophils # (Manual) Percent Retic PT INR Fibrinogen D-Dimer > 75151 H ABG pH 7.306 L POC ABG pCO2 POC ABG pO2 ABG pO2 ABG HCO3 27.9 H ABG O2 Saturation ABG Base Excess ABG Hemoglobin 5.2 L ABG Oxyhemoglobin ABG Sodium ABG Potassium ABG Chloride ABG Glucose Oxyhemoglobin Carboxyhemoglobin Sodium Potassium 5.2 H Chloride 97.6 L Carbon Dioxide BUN 52 H Creatinine 6.2 H Glucose 104 H POC Glucose Hemoglobin A1c Calcium Phosphorus 8.60 H Magnesium AST ALT Alkaline Phosphatase Lactate Dehydrogenase C-Reactive Protein 6.90 H Total Protein Albumin Triglycerides Arterial Blood Glucose Arterial Blood Ionized Calcium Urine WBC (Auto) U Epithel Cells (Auto) Urine Creatinine Random Vancomycin Coronavirus (PCR) Crossmatch 03/20/21 03/20/21 03/20/21 13:50 17:46 17:56 WBC RBC Hgb Hct MCH MCHC RDW Plt Count Lymph % (Auto) [place] # (Auto) Eos # (Auto) Seg Neutrophils % Lymphocytes % (Manual) Eosinophils % (Manual) Basophils % (Manual) Nucleated RBC % Seg Neutrophils # Seg Neutrophils # Man Lymphocytes # (Manual) Monocytes # (Manual) Eosinophils # (Manual) Basophils # (Manual) Percent Retic PT INR Fibrinogen D-Dimer ABG pH POC ABG pCO2 POC ABG pO2 ABG pO2 ABG HCO3 ABG O2 Saturation ABG Base Excess ABG Hemoglobin ABG Oxyhemoglobin ABG Sodium ABG Potassium ABG Chloride ABG Glucose Oxyhemoglobin Carboxyhemoglobin Sodium Potassium Chloride Carbon Dioxide BUN 63 H 43 H Creatinine Glucose POC Glucose 145 H Hemoglobin A1c Calcium Phosphorus Magnesium AST ALT Alkaline Phosphatase Lactate Dehydrogenase C-Reactive Protein Total Protein Albumin Triglycerides Arterial Blood Glucose Arterial Blood Ionized Calcium Urine WBC (Auto) U Epithel Cells (Auto) Urine Creatinine Random Vancomycin Coronavirus (PCR) Crossmatch 03/20/21 03/21/21 03/21/21 23:18 06:58 06:58 WBC 14.4 H RBC 3.41 L Hgb 9.5 L Hct 28.6 L MCH MCHC RDW 17.4 H Plt Count 107 L Lymph % (Auto) [place] # (Auto) Eos # (Auto) Seg Neutrophils % Lymphocytes % (Manual) Eosinophils % (Manual) Basophils % (Manual) Nucleated RBC % Seg Neutrophils # Seg Neutrophils # Man Lymphocytes # (Manual) Monocytes # (Manual) Eosinophils # (Manual) Basophils # (Manual) Percent Retic PT INR Fibrinogen D-Dimer ABG pH POC ABG pCO2 POC ABG pO2 ABG pO2 ABG HCO3 ABG O2 Saturation ABG Base Excess ABG Hemoglobin ABG Oxyhemoglobin ABG Sodium ABG Potassium ABG Chloride ABG Glucose Oxyhemoglobin Carboxyhemoglobin Sodium Potassium Chloride Carbon Dioxide BUN 60 H Creatinine 7.7 H Glucose POC Glucose 106 H Hemoglobin A1c Calcium Phosphorus Magnesium AST ALT Alkaline Phosphatase Lactate Dehydrogenase C-Reactive Protein Total Protein Albumin Triglycerides Arterial Blood Glucose Arterial Blood Ionized Calcium Urine WBC (Auto) U Epithel Cells (Auto) Urine Creatinine Random Vancomycin Coronavirus (PCR) Crossmatch 03/21/21 03/21/21 03/21/21 11:11 18:04 Unknown WBC RBC Hgb Hct MCH MCHC RDW Plt Count Lymph % (Auto) [place] # (Auto) Eos # (Auto) Seg Neutrophils % Lymphocytes % (Manual) Eosinophils % (Manual) Basophils % (Manual) Nucleated RBC % Seg Neutrophils # Seg Neutrophils # Man Lymphocytes # (Manual) Monocytes # (Manual) Eosinophils # (Manual) Basophils # (Manual) Percent Retic PT INR Fibrinogen D-Dimer ABG pH 7.270 L POC ABG pCO2 58.7 H POC ABG pO2 76.9 L ABG pO2 ABG HCO3 ABG O2 Saturation ABG Base Excess ABG Hemoglobin 9.9 L ABG Oxyhemoglobin 92.4 L ABG Sodium 135.8 L ABG Potassium 4.6 H ABG Chloride ABG Glucose Oxyhemoglobin Carboxyhemoglobin 0.1 L Sodium Potassium Chloride Carbon Dioxide BUN Creatinine Glucose POC Glucose 109 H 141 H Hemoglobin A1c Calcium Phosphorus Magnesium AST ALT Alkaline Phosphatase Lactate Dehydrogenase C-Reactive Protein Total Protein Albumin Triglycerides Arterial Blood Glucose Arterial Blood Ionized Calcium 4.5 L Urine WBC (Auto) U Epithel Cells (Auto) Urine Creatinine Random Vancomycin Coronavirus (PCR) Crossmatch 03/22/21 03/22/21 03/22/21 03:09 07:10 10:00 WBC RBC Hgb Hct MCH MCHC RDW Plt Count Lymph % (Auto) [place] # (Auto) Eos # (Auto) Seg Neutrophils % Lymphocytes % (Manual) Eosinophils % (Manual) Basophils % (Manual) Nucleated RBC % Seg Neutrophils # Seg Neutrophils # Man Lymphocytes # (Manual) Monocytes # (Manual) Eosinophils # (Manual) Basophils # (Manual) Percent Retic PT INR Fibrinogen D-Dimer ABG pH 7.206 L 7.245 L POC ABG pCO2 55.6 H POC ABG pO2 ABG pO2 90.6 H ABG HCO3 ABG O2 Saturation ABG Base Excess -4.4 L ABG Hemoglobin 9.0 L 8.4 L ABG Oxyhemoglobin ABG Sodium 123.4 L ABG Potassium 5.6 H ABG Chloride ABG Glucose 106 H Oxyhemoglobin 94.5 L Carboxyhemoglobin 0.1 L Sodium Potassium 5.4 H Chloride 96.8 L Carbon Dioxide BUN 89 H Creatinine 8.7 H Glucose 131 H POC Glucose Hemoglobin A1c Calcium Phosphorus Magnesium AST ALT Alkaline Phosphatase Lactate Dehydrogenase C-Reactive Protein 9.40 H Total Protein Albumin Triglycerides Arterial Blood Glucose 106 H Arterial Blood Ionized Calcium Urine WBC (Auto) U Epithel Cells (Auto) Urine Creatinine Random Vancomycin Coronavirus (PCR) Crossmatch 03/22/21 03/22/21 03/22/21 10:00 12:37 13:19 WBC RBC 3.05 L Hgb 8.4 L Hct 25.5 L MCH MCHC RDW 17.5 H Plt Count 108 L Lymph % (Auto) [place] # (Auto) Eos # (Auto) Seg Neutrophils % Lymphocytes % (Manual) Eosinophils % (Manual) Basophils % (Manual) Nucleated RBC % Seg Neutrophils # Seg Neutrophils # Man Lymphocytes # (Manual) Monocytes # (Manual) Eosinophils # (Manual) Basophils # (Manual) Percent Retic PT INR Fibrinogen D-Dimer ABG pH POC ABG pCO2 POC ABG pO2 ABG pO2 ABG HCO3 ABG O2 Saturation ABG Base Excess ABG Hemoglobin ABG Oxyhemoglobin ABG Sodium ABG Potassium ABG Chloride ABG Glucose Oxyhemoglobin Carboxyhemoglobin Sodium Potassium Chloride Carbon Dioxide BUN Creatinine 8.7 H Glucose POC Glucose 140 H Hemoglobin A1c Calcium Phosphorus Magnesium AST ALT Alkaline Phosphatase Lactate Dehydrogenase C-Reactive Protein Total Protein Albumin Triglycerides Arterial Blood Glucose Arterial Blood Ionized Calcium Urine WBC (Auto) U Epithel Cells (Auto) Urine Creatinine Random Vancomycin Coronavirus (PCR) Crossmatch 03/22/21 03/22/21 03/22/21 13:40 17:14 18:21 WBC RBC Hgb Hct MCH MCHC RDW Plt Count Lymph % (Auto) [place] # (Auto) Eos # (Auto) Seg Neutrophils % Lymphocytes % (Manual) Eosinophils % (Manual) Basophils % (Manual) Nucleated RBC % Seg Neutrophils # Seg Neutrophils # Man Lymphocytes # (Manual) Monocytes # (Manual) Eosinophils # (Manual) Basophils # (Manual) Percent Retic PT 15.8 H INR 1.14 H Fibrinogen D-Dimer > 05076 H ABG pH POC ABG pCO2 POC ABG pO2 ABG pO2 ABG HCO3 ABG O2 Saturation ABG Base Excess ABG Hemoglobin ABG Oxyhemoglobin ABG Sodium ABG Potassium ABG Chloride ABG Glucose Oxyhemoglobin Carboxyhemoglobin Sodium Potassium Chloride Carbon Dioxide BUN Creatinine Glucose POC Glucose 117 H 112 H Hemoglobin A1c Calcium Phosphorus Magnesium AST ALT Alkaline Phosphatase Lactate Dehydrogenase C-Reactive Protein Total Protein Albumin Triglycerides Arterial Blood Glucose Arterial Blood Ionized Calcium Urine WBC (Auto) U Epithel Cells (Auto) Urine Creatinine Random Vancomycin Coronavirus (PCR) Crossmatch 03/22/21 03/22/21 03/23/21 21:25 22:57 04:30 WBC RBC Hgb Hct MCH MCHC RDW Plt Count Lymph % (Auto) [place] # (Auto) Eos # (Auto) Seg Neutrophils % Lymphocytes % (Manual) Eosinophils % (Manual) Basophils % (Manual) Nucleated RBC % Seg Neutrophils # Seg Neutrophils # Man Lymphocytes # (Manual) Monocytes # (Manual) Eosinophils # (Manual) Basophils # (Manual) Percent Retic PT INR Fibrinogen D-Dimer ABG pH 7.188 L* POC ABG pCO2 POC ABG pO2 ABG pO2 97.9 H ABG HCO3 ABG O2 Saturation ABG Base Excess -3.7 L ABG Hemoglobin 9.2 L ABG Oxyhemoglobin ABG Sodium ABG Potassium ABG Chloride ABG Glucose Oxyhemoglobin 94.4 L Carboxyhemoglobin Sodium Potassium Chloride Carbon Dioxide BUN Creatinine Glucose POC Glucose 106 H Hemoglobin A1c Calcium Phosphorus Magnesium AST ALT Alkaline Phosphatase Lactate Dehydrogenase C-Reactive Protein Total Protein Albumin Triglycerides 381 H Arterial Blood Glucose Arterial Blood Ionized Calcium Urine WBC (Auto) U Epithel Cells (Auto) Urine Creatinine Random Vancomycin Coronavirus (PCR) Crossmatch 03/23/21 03/23/21 03/23/21 04:30 04:30 05:37 WBC 20.1 H RBC 3.17 L Hgb 8.6 L Hct 27.2 L MCH 27 L MCHC RDW 17.4 H Plt Count 118 L Lymph % (Auto) [place] # (Auto) Eos # (Auto) Seg Neutrophils % Lymphocytes % (Manual) Eosinophils % (Manual) Basophils % (Manual) Nucleated RBC % Seg Neutrophils # Seg Neutrophils # Man Lymphocytes # (Manual) Monocytes # (Manual) Eosinophils # (Manual) Basophils # (Manual) Percent Retic PT INR Fibrinogen D-Dimer ABG pH POC ABG pCO2 POC ABG pO2 ABG pO2 ABG HCO3 ABG O2 Saturation ABG Base Excess ABG Hemoglobin ABG Oxyhemoglobin ABG Sodium ABG Potassium ABG Chloride ABG Glucose Oxyhemoglobin Carboxyhemoglobin Sodium Potassium 5.2 H Chloride 97.1 L Carbon Dioxide 21 L BUN 82 H Creatinine 9.1 H Glucose 109 H POC Glucose 130 H Hemoglobin A1c Calcium Phosphorus 10.80 H Magnesium 3.50 H AST ALT Alkaline Phosphatase Lactate Dehydrogenase C-Reactive Protein Total Protein Albumin Triglycerides Arterial Blood Glucose Arterial Blood Ionized Calcium Urine WBC (Auto) U Epithel Cells (Auto) Urine Creatinine Random Vancomycin Coronavirus (PCR) Crossmatch 03/23/21 03/23/21 03/23/21 08:44 11:30 16:09 WBC RBC Hgb Hct MCH MCHC RDW Plt Count Lymph % (Auto) [place] # (Auto) Eos # (Auto) Seg Neutrophils % Lymphocytes % (Manual) Eosinophils % (Manual) Basophils % (Manual) Nucleated RBC % Seg Neutrophils # Seg Neutrophils # Man Lymphocytes # (Manual) Monocytes # (Manual) Eosinophils # (Manual) Basophils # (Manual) Percent Retic PT INR Fibrinogen D-Dimer ABG pH 7.190 L POC ABG pCO2 57.9 H POC ABG pO2 79.2 L ABG pO2 ABG HCO3 ABG O2 Saturation ABG Base Excess ABG Hemoglobin 11.8 L ABG Oxyhemoglobin 92.3 L ABG Sodium 131.0 L ABG Potassium 5.0 H ABG Chloride ABG Glucose 122 H Oxyhemoglobin Carboxyhemoglobin 0.4 L Sodium Potassium Chloride Carbon Dioxide BUN Creatinine Glucose POC Glucose 129 H 148 H Hemoglobin A1c Calcium Phosphorus Magnesium AST ALT Alkaline Phosphatase Lactate Dehydrogenase C-Reactive Protein Total Protein Albumin Triglycerides Arterial Blood Glucose 122 H Arterial Blood Ionized Calcium 4.4 L Urine WBC (Auto) U Epithel Cells (Auto) Urine Creatinine Random Vancomycin Coronavirus (PCR) Crossmatch 03/23/21 03/24/21 03/24/21 21:00 03:35 04:00 WBC 17.8 H RBC 2.96 L Hgb 8.1 L Hct 25.0 L MCH 27 L MCHC RDW 17.7 H Plt Count 124 L Lymph % (Auto) [place] # (Auto) Eos # (Auto) Seg Neutrophils % Lymphocytes % (Manual) Eosinophils % (Manual) Basophils % (Manual) Nucleated RBC % Seg Neutrophils # Seg Neutrophils # Man Lymphocytes # (Manual) Monocytes # (Manual) Eosinophils # (Manual) Basophils # (Manual) Percent Retic PT INR Fibrinogen D-Dimer ABG pH 7.223 L POC ABG pCO2 50.3 H POC ABG pO2 114.4 H ABG pO2 ABG HCO3 ABG O2 Saturation ABG Base Excess ABG Hemoglobin 8.8 L ABG Oxyhemoglobin ABG Sodium 130.4 L ABG Potassium 5.1 H ABG Chloride ABG Glucose 126 H Oxyhemoglobin Carboxyhemoglobin 0.2 L Sodium Potassium Chloride Carbon Dioxide BUN Creatinine Glucose POC Glucose 148 H Hemoglobin A1c Calcium Phosphorus Magnesium AST ALT Alkaline Phosphatase Lactate Dehydrogenase C-Reactive Protein Total Protein Albumin Triglycerides Arterial Blood Glucose 126 H Arterial Blood Ionized Calcium 4.4 L Urine WBC (Auto) U Epithel Cells (Auto) Urine Creatinine Random Vancomycin Coronavirus (PCR) Crossmatch 03/24/21 03/24/21 03/24/21 04:00 06:49 12:29 WBC RBC Hgb Hct MCH MCHC RDW Plt Count Lymph % (Auto) [place] # (Auto) Eos # (Auto) Seg Neutrophils % Lymphocytes % (Manual) Eosinophils % (Manual) Basophils % (Manual) Nucleated RBC % Seg Neutrophils # Seg Neutrophils # Man Lymphocytes # (Manual) Monocytes # (Manual) Eosinophils # (Manual) Basophils # (Manual) Percent Retic PT INR Fibrinogen D-Dimer ABG pH POC ABG pCO2 POC ABG pO2 ABG pO2 ABG HCO3 ABG O2 Saturation ABG Base Excess ABG Hemoglobin ABG Oxyhemoglobin ABG Sodium ABG Potassium ABG Chloride ABG Glucose Oxyhemoglobin Carboxyhemoglobin Sodium Potassium Chloride 95.6 L Carbon Dioxide 20 L BUN 108 H Creatinine 10.8 H Glucose 155 H POC Glucose 136 H 142 H Hemoglobin A1c Calcium Phosphorus Magnesium AST ALT Alkaline Phosphatase Lactate Dehydrogenase C-Reactive Protein Total Protein Albumin Triglycerides Arterial Blood Glucose Arterial Blood Ionized Calcium Urine WBC (Auto) U Epithel Cells (Auto) Urine Creatinine Random Vancomycin Coronavirus (PCR) Crossmatch 03/24/21 03/25/21 03/25/21 21:35 00:15 05:51 WBC RBC Hgb Hct MCH MCHC RDW Plt Count Lymph % (Auto) [place] # (Auto) Eos # (Auto) Seg Neutrophils % Lymphocytes % (Manual) Eosinophils % (Manual) Basophils % (Manual) Nucleated RBC % Seg Neutrophils # Seg Neutrophils # Man Lymphocytes # (Manual) Monocytes # (Manual) Eosinophils # (Manual) Basophils # (Manual) Percent Retic PT INR Fibrinogen D-Dimer ABG pH 7.241 L POC ABG pCO2 POC ABG pO2 ABG pO2 72.4 L ABG HCO3 ABG O2 Saturation 90.3 L ABG Base Excess ABG Hemoglobin 7.9 L ABG Oxyhemoglobin ABG Sodium ABG Potassium ABG Chloride ABG Glucose Oxyhemoglobin 88.4 L Carboxyhemoglobin Sodium Potassium Chloride Carbon Dioxide BUN Creatinine Glucose POC Glucose 110 H 121 H Hemoglobin A1c Calcium Phosphorus Magnesium AST ALT Alkaline Phosphatase Lactate Dehydrogenase C-Reactive Protein Total Protein Albumin Triglycerides Arterial Blood Glucose Arterial Blood Ionized Calcium Urine WBC (Auto) U Epithel Cells (Auto) Urine Creatinine Random Vancomycin Coronavirus (PCR) Crossmatch 03/25/21 03/25/21 03/25/21 05:54 05:54 12:21 WBC 12.4 H RBC 2.52 L Hgb 6.9 L Hct 21.1 L MCH MCHC RDW 17.4 H Plt Count 102 L Lymph % (Auto) [place] # (Auto) Eos # (Auto) Seg Neutrophils % Lymphocytes % (Manual) Eosinophils % (Manual) Basophils % (Manual) Nucleated RBC % Seg Neutrophils # Seg Neutrophils # Man Lymphocytes # (Manual) Monocytes # (Manual) Eosinophils # (Manual) Basophils # (Manual) Percent Retic PT INR Fibrinogen D-Dimer ABG pH POC ABG pCO2 POC ABG pO2 ABG pO2 ABG HCO3 ABG O2 Saturation ABG Base Excess ABG Hemoglobin ABG Oxyhemoglobin ABG Sodium ABG Potassium ABG Chloride ABG Glucose Oxyhemoglobin Carboxyhemoglobin Sodium Potassium Chloride 96.7 L Carbon Dioxide BUN 81 H Creatinine 8.1 H Glucose 116 H POC Glucose 138 H Hemoglobin A1c Calcium 8.2 L Phosphorus Magnesium AST ALT Alkaline Phosphatase Lactate Dehydrogenase C-Reactive Protein Total Protein Albumin Triglycerides Arterial Blood Glucose Arterial Blood Ionized Calcium Urine WBC (Auto) U Epithel Cells (Auto) Urine Creatinine Random Vancomycin Coronavirus (PCR) Crossmatch 03/25/21 03/25/21 03/25/21 13:45 17:32 21:30 WBC RBC Hgb Hct MCH MCHC RDW Plt Count Lymph % (Auto) [place] # (Auto) Eos # (Auto) Seg Neutrophils % Lymphocytes % (Manual) Eosinophils % (Manual) Basophils % (Manual) Nucleated RBC % Seg Neutrophils # Seg Neutrophils # Man Lymphocytes # (Manual) Monocytes # (Manual) Eosinophils # (Manual) Basophils # (Manual) Percent Retic PT INR Fibrinogen D-Dimer ABG pH POC ABG pCO2 POC ABG pO2 ABG pO2 70.2 L ABG HCO3 ABG O2 Saturation ABG Base Excess ABG Hemoglobin 6.8 L ABG Oxyhemoglobin ABG Sodium ABG Potassium ABG Chloride ABG Glucose Oxyhemoglobin 94.5 L Carboxyhemoglobin Sodium Potassium Chloride Carbon Dioxide BUN Creatinine Glucose POC Glucose 110 H Hemoglobin A1c Calcium Phosphorus Magnesium AST ALT Alkaline Phosphatase Lactate Dehydrogenase C-Reactive Protein Total Protein Albumin Triglycerides Arterial Blood Glucose Arterial Blood Ionized Calcium Urine WBC (Auto) U Epithel Cells (Auto) Urine Creatinine Random Vancomycin Coronavirus (PCR) Crossmatch See Detail 03/25/21 03/25/21 03/26/21 23:29 Unknown 05:15 WBC 12.4 H 14.0 H RBC 2.49 L 2.83 L Hgb 6.8 L 7.6 L Hct 20.9 L 23.6 L MCH 27 L 27 L MCHC RDW 18.0 H 17.1 H Plt Count 107 L 116 L Lymph % (Auto) [place] # (Auto) Eos # (Auto) Seg Neutrophils % Lymphocytes % (Manual) Eosinophils % (Manual) Basophils % (Manual) Nucleated RBC % Seg Neutrophils # Seg Neutrophils # Man Lymphocytes # (Manual) Monocytes # (Manual) Eosinophils # (Manual) Basophils # (Manual) Percent Retic PT INR Fibrinogen D-Dimer ABG pH POC ABG pCO2 POC ABG pO2 ABG pO2 ABG HCO3 ABG O2 Saturation ABG Base Excess ABG Hemoglobin ABG Oxyhemoglobin ABG Sodium ABG Potassium ABG Chloride ABG Glucose Oxyhemoglobin Carboxyhemoglobin Sodium Potassium Chloride Carbon Dioxide BUN Creatinine Glucose POC Glucose 113 H Hemoglobin A1c Calcium Phosphorus Magnesium AST ALT Alkaline Phosphatase Lactate Dehydrogenase C-Reactive Protein Total Protein Albumin Triglycerides Arterial Blood Glucose Arterial Blood Ionized Calcium Urine WBC (Auto) U Epithel Cells (Auto) Urine Creatinine Random Vancomycin Coronavirus (PCR) Crossmatch 03/26/21 03/26/21 03/26/21 05:15 05:35 09:50 WBC RBC Hgb Hct MCH MCHC RDW Plt Count Lymph % (Auto) [place] # (Auto) Eos # (Auto) Seg Neutrophils % Lymphocytes % (Manual) Eosinophils % (Manual) Basophils % (Manual) Nucleated RBC % Seg Neutrophils # Seg Neutrophils # Man Lymphocytes # (Manual) Monocytes # (Manual) Eosinophils # (Manual) Basophils # (Manual) Percent Retic PT INR Fibrinogen D-Dimer ABG pH POC ABG pCO2 POC ABG pO2 ABG pO2 79.9 L ABG HCO3 ABG O2 Saturation ABG Base Excess ABG Hemoglobin 7.1 L ABG Oxyhemoglobin ABG Sodium ABG Potassium ABG Chloride ABG Glucose Oxyhemoglobin 94.9 L Carboxyhemoglobin Sodium Potassium 3.4 L Chloride Carbon Dioxide BUN 70 H Creatinine 7.3 H Glucose 142 H POC Glucose 130 H Hemoglobin A1c Calcium 8.2 L Phosphorus Magnesium AST ALT Alkaline Phosphatase Lactate Dehydrogenase C-Reactive Protein Total Protein Albumin Triglycerides 254 H Arterial Blood Glucose Arterial Blood Ionized Calcium Urine WBC (Auto) U Epithel Cells (Auto) Urine Creatinine Random Vancomycin Coronavirus (PCR) Crossmatch 03/26/21 03/26/21 03/26/21 11:45 16:36 23:33 WBC RBC Hgb Hct MCH MCHC RDW Plt Count Lymph % (Auto) [place] # (Auto) Eos # (Auto) Seg Neutrophils % Lymphocytes % (Manual) Eosinophils % (Manual) Basophils % (Manual) Nucleated RBC % Seg Neutrophils # Seg Neutrophils # Man Lymphocytes # (Manual) Monocytes # (Manual) Eosinophils # (Manual) Basophils # (Manual) Percent Retic PT INR Fibrinogen D-Dimer ABG pH POC ABG pCO2 POC ABG pO2 ABG pO2 ABG HCO3 ABG O2 Saturation ABG Base Excess ABG Hemoglobin ABG Oxyhemoglobin ABG Sodium ABG Potassium ABG Chloride ABG Glucose Oxyhemoglobin Carboxyhemoglobin Sodium Potassium Chloride Carbon Dioxide BUN Creatinine Glucose POC Glucose 123 H 121 H 120 H Hemoglobin A1c Calcium Phosphorus Magnesium AST ALT Alkaline Phosphatase Lactate Dehydrogenase C-Reactive Protein Total Protein Albumin Triglycerides Arterial Blood Glucose Arterial Blood Ionized Calcium Urine WBC (Auto) U Epithel Cells (Auto) Urine Creatinine Random Vancomycin Coronavirus (PCR) Crossmatch 03/27/21 03/27/21 03/27/21 03:20 04:14 08:20 WBC 13.2 H RBC 2.82 L Hgb 7.9 L Hct 23.5 L MCH MCHC RDW 17.3 H Plt Count 125 L Lymph % (Auto) [place] # (Auto) Eos # (Auto) Seg Neutrophils % Lymphocytes % (Manual) Eosinophils % (Manual) Basophils % (Manual) Nucleated RBC % Seg Neutrophils # Seg Neutrophils # Man Lymphocytes # (Manual) Monocytes # (Manual) Eosinophils # (Manual) Basophils # (Manual) Percent Retic PT INR Fibrinogen D-Dimer ABG pH POC ABG pCO2 50.0 H POC ABG pO2 58.3 L ABG pO2 ABG HCO3 ABG O2 Saturation ABG Base Excess ABG Hemoglobin 11.3 L ABG Oxyhemoglobin 88.5 L ABG Sodium ABG Potassium ABG Chloride ABG Glucose 132 H Oxyhemoglobin Carboxyhemoglobin 0.2 L Sodium Potassium Chloride Carbon Dioxide BUN Creatinine Glucose POC Glucose 119 H Hemoglobin A1c Calcium Phosphorus Magnesium AST ALT Alkaline Phosphatase Lactate Dehydrogenase C-Reactive Protein Total Protein Albumin Triglycerides Arterial Blood Glucose 132 H Arterial Blood Ionized Calcium Urine WBC (Auto) U Epithel Cells (Auto) Urine Creatinine Random Vancomycin Coronavirus (PCR) Crossmatch 03/27/21 03/27/21 03/27/21 08:20 11:39 17:32 WBC RBC Hgb Hct MCH MCHC RDW Plt Count Lymph % (Auto) [place] # (Auto) Eos # (Auto) Seg Neutrophils % Lymphocytes % (Manual) Eosinophils % (Manual) Basophils % (Manual) Nucleated RBC % Seg Neutrophils # Seg Neutrophils # Man Lymphocytes # (Manual) Monocytes # (Manual) Eosinophils # (Manual) Basophils # (Manual) Percent Retic PT INR Fibrinogen D-Dimer ABG pH POC ABG pCO2 POC ABG pO2 ABG pO2 ABG HCO3 ABG O2 Saturation ABG Base Excess ABG Hemoglobin ABG Oxyhemoglobin ABG Sodium ABG Potassium ABG Chloride ABG Glucose Oxyhemoglobin Carboxyhemoglobin Sodium Potassium Chloride Carbon Dioxide BUN 57 H Creatinine 6.8 H Glucose 131 H POC Glucose 121 H 126 H Hemoglobin A1c Calcium Phosphorus Magnesium AST ALT Alkaline Phosphatase Lactate Dehydrogenase C-Reactive Protein Total Protein Albumin Triglycerides Arterial Blood Glucose Arterial Blood Ionized Calcium Urine WBC (Auto) U Epithel Cells (Auto) Urine Creatinine Random Vancomycin Coronavirus (PCR) Crossmatch 03/28/21 03/28/21 03/28/21 00:10 04:45 05:25 WBC RBC Hgb Hct MCH MCHC RDW Plt Count Lymph % (Auto) [place] # (Auto) Eos # (Auto) Seg Neutrophils % Lymphocytes % (Manual) Eosinophils % (Manual) Basophils % (Manual) Nucleated RBC % Seg Neutrophils # Seg Neutrophils # Man Lymphocytes # (Manual) Monocytes # (Manual) Eosinophils # (Manual) Basophils # (Manual) Percent Retic PT INR Fibrinogen D-Dimer ABG pH POC ABG pCO2 POC ABG pO2 ABG pO2 57.6 L ABG HCO3 27.1 H ABG O2 Saturation 88.5 L ABG Base Excess ABG Hemoglobin ABG Oxyhemoglobin ABG Sodium ABG Potassium ABG Chloride ABG Glucose Oxyhemoglobin 86.6 L Carboxyhemoglobin Sodium Potassium Chloride Carbon Dioxide BUN Creatinine Glucose POC Glucose 113 H 121 H Hemoglobin A1c Calcium Phosphorus Magnesium AST ALT Alkaline Phosphatase Lactate Dehydrogenase C-Reactive Protein Total Protein Albumin Triglycerides Arterial Blood Glucose Arterial Blood Ionized Calcium Urine WBC (Auto) U Epithel Cells (Auto) Urine Creatinine Random Vancomycin Coronavirus (PCR) Crossmatch 03/28/21 03/28/21 03/28/21 09:37 09:37 11:48 WBC 16.3 H RBC 2.92 L Hgb 8.2 L Hct 24.8 L MCH MCHC RDW 17.5 H Plt Count Lymph % (Auto) 10.7 L [place] # (Auto) 0.9 H Eos # (Auto) 0.6 H Seg Neutrophils % 80.0 H Lymphocytes % (Manual) Eosinophils % (Manual) Basophils % (Manual) Nucleated RBC % Seg Neutrophils # 13.0 H Seg Neutrophils # Man Lymphocytes # (Manual) Monocytes # (Manual) Eosinophils # (Manual) Basophils # (Manual) Percent Retic PT INR Fibrinogen D-Dimer ABG pH POC ABG pCO2 POC ABG pO2 ABG pO2 ABG HCO3 ABG O2 Saturation ABG Base Excess ABG Hemoglobin ABG Oxyhemoglobin ABG Sodium ABG Potassium ABG Chloride ABG Glucose Oxyhemoglobin Carboxyhemoglobin Sodium Potassium Chloride Carbon Dioxide BUN 61 H Creatinine 7.7 H Glucose 148 H POC Glucose 123 H Hemoglobin A1c Calcium Phosphorus Magnesium AST ALT Alkaline Phosphatase Lactate Dehydrogenase C-Reactive Protein Total Protein Albumin Triglycerides Arterial Blood Glucose Arterial Blood Ionized Calcium Urine WBC (Auto) U Epithel Cells (Auto) Urine Creatinine Random Vancomycin Coronavirus (PCR) Crossmatch 03/28/21 03/28/21 03/28/21 17:33 21:08 23:38 WBC RBC Hgb Hct MCH MCHC RDW Plt Count Lymph % (Auto) [place] # (Auto) Eos # (Auto) Seg Neutrophils % Lymphocytes % (Manual) Eosinophils % (Manual) Basophils % (Manual) Nucleated RBC % Seg Neutrophils # Seg Neutrophils # Man Lymphocytes # (Manual) Monocytes # (Manual) Eosinophils # (Manual) Basophils # (Manual) Percent Retic PT INR Fibrinogen D-Dimer ABG pH POC ABG pCO2 POC ABG pO2 80.5 L ABG pO2 ABG HCO3 ABG O2 Saturation ABG Base Excess ABG Hemoglobin 9.5 L ABG Oxyhemoglobin ABG Sodium 133.3 L ABG Potassium ABG Chloride ABG Glucose 134 H Oxyhemoglobin Carboxyhemoglobin 0.3 L Sodium Potassium Chloride Carbon Dioxide BUN Creatinine Glucose POC Glucose 128 H 112 H Hemoglobin A1c Calcium Phosphorus Magnesium AST ALT Alkaline Phosphatase Lactate Dehydrogenase C-Reactive Protein Total Protein Albumin Triglycerides Arterial Blood Glucose 134 H Arterial Blood Ionized Calcium Urine WBC (Auto) U Epithel Cells (Auto) Urine Creatinine Random Vancomycin Coronavirus (PCR) Crossmatch 03/29/21 03/29/21 03/29/21 04:45 04:45 04:45 WBC 17.5 H RBC 3.15 L Hgb 8.8 L Hct 27.2 L MCH MCHC RDW 17.9 H Plt Count 132 L Lymph % (Auto) [place] # (Auto) Eos # (Auto) Seg Neutrophils % Lymphocytes % (Manual) Eosinophils % (Manual) Basophils % (Manual) Nucleated RBC % Seg Neutrophils # Seg Neutrophils # Man Lymphocytes # (Manual) Monocytes # (Manual) Eosinophils # (Manual) Basophils # (Manual) Percent Retic PT INR Fibrinogen D-Dimer ABG pH POC ABG pCO2 POC ABG pO2 ABG pO2 ABG HCO3 ABG O2 Saturation ABG Base Excess ABG Hemoglobin ABG Oxyhemoglobin ABG Sodium ABG Potassium ABG Chloride ABG Glucose Oxyhemoglobin Carboxyhemoglobin Sodium Potassium Chloride 97.7 L Carbon Dioxide 21 L BUN 78 H Creatinine 9.5 H Glucose 132 H POC Glucose Hemoglobin A1c Calcium Phosphorus Magnesium AST ALT Alkaline Phosphatase Lactate Dehydrogenase C-Reactive Protein Total Protein Albumin 2.2 L Triglycerides 385 H Arterial Blood Glucose Arterial Blood Ionized Calcium Urine WBC (Auto) U Epithel Cells (Auto) Urine Creatinine Random Vancomycin Coronavirus (PCR) Crossmatch 03/29/21 03/29/21 03/29/21 11:35 16:50 21:06 WBC RBC Hgb Hct MCH MCHC RDW Plt Count Lymph % (Auto) [place] # (Auto) Eos # (Auto) Seg Neutrophils % Lymphocytes % (Manual) Eosinophils % (Manual) Basophils % (Manual) Nucleated RBC % Seg Neutrophils # Seg Neutrophils # Man Lymphocytes # (Manual) Monocytes # (Manual) Eosinophils # (Manual) Basophils # (Manual) Percent Retic PT INR Fibrinogen D-Dimer ABG pH POC ABG pCO2 POC ABG pO2 ABG pO2 64.9 L ABG HCO3 ABG O2 Saturation ABG Base Excess -5.2 L ABG Hemoglobin ABG Oxyhemoglobin ABG Sodium ABG Potassium ABG Chloride ABG Glucose Oxyhemoglobin 85.1 L Carboxyhemoglobin Sodium Potassium Chloride Carbon Dioxide BUN Creatinine Glucose POC Glucose 148 H 133 H Hemoglobin A1c Calcium Phosphorus Magnesium AST ALT Alkaline Phosphatase Lactate Dehydrogenase C-Reactive Protein Total Protein Albumin Triglycerides Arterial Blood Glucose Arterial Blood Ionized Calcium Urine WBC (Auto) U Epithel Cells (Auto) Urine Creatinine Random Vancomycin Coronavirus (PCR) Crossmatch 03/29/21 03/30/21 03/30/21 Unknown 00:13 04:00 WBC 15.7 H RBC 3.18 L Hgb 8.6 L Hct 27.3 L MCH 27 L MCHC RDW 18.0 H Plt Count 86 L Lymph % (Auto) [place] # (Auto) Eos # (Auto) Seg Neutrophils % Lymphocytes % (Manual) Eosinophils % (Manual) Basophils % (Manual) Nucleated RBC % Seg Neutrophils # Seg Neutrophils # Man Lymphocytes # (Manual) Monocytes # (Manual) Eosinophils # (Manual) Basophils # (Manual) Percent Retic PT INR Fibrinogen D-Dimer ABG pH 7.258 L POC ABG pCO2 POC ABG pO2 ABG pO2 ABG HCO3 ABG O2 Saturation ABG Base Excess -4.9 L ABG Hemoglobin 8.8 L ABG Oxyhemoglobin ABG Sodium ABG Potassium ABG Chloride ABG Glucose Oxyhemoglobin 93.9 L Carboxyhemoglobin Sodium Potassium Chloride Carbon Dioxide BUN Creatinine Glucose POC Glucose 129 H Hemoglobin A1c Calcium Phosphorus Magnesium AST ALT Alkaline Phosphatase Lactate Dehydrogenase C-Reactive Protein Total Protein Albumin Triglycerides Arterial Blood Glucose Arterial Blood Ionized Calcium Urine WBC (Auto) U Epithel Cells (Auto) Urine Creatinine Random Vancomycin Coronavirus (PCR) Crossmatch 03/30/21 03/30/21 03/30/21 04:00 04:00 06:02 WBC RBC Hgb Hct MCH MCHC RDW Plt Count Lymph % (Auto) [place] # (Auto) Eos # (Auto) Seg Neutrophils % Lymphocytes % (Manual) Eosinophils % (Manual) Basophils % (Manual) Nucleated RBC % Seg Neutrophils # Seg Neutrophils # Man Lymphocytes # (Manual) Monocytes # (Manual) Eosinophils # (Manual) Basophils # (Manual) Percent Retic PT INR Fibrinogen D-Dimer 2607.12 H ABG pH POC ABG pCO2 POC ABG pO2 ABG pO2 ABG HCO3 ABG O2 Saturation ABG Base Excess ABG Hemoglobin ABG Oxyhemoglobin ABG Sodium ABG Potassium ABG Chloride ABG Glucose Oxyhemoglobin Carboxyhemoglobin Sodium 133 L Potassium 5.2 H D Chloride 91.5 L Carbon Dioxide 18 L BUN 101 H Creatinine 10.6 H Glucose 149 H POC Glucose 130 H Hemoglobin A1c Calcium Phosphorus 10.30 H Magnesium AST ALT Alkaline Phosphatase Lactate Dehydrogenase C-Reactive Protein 21.50 H Total Protein Albumin Triglycerides Arterial Blood Glucose Arterial Blood Ionized Calcium Urine WBC (Auto) U Epithel Cells (Auto) Urine Creatinine Random Vancomycin Coronavirus (PCR) Crossmatch 03/30/21 03/30/21 03/30/21 10:36 11:48 17:20 WBC RBC Hgb Hct MCH MCHC RDW Plt Count Lymph % (Auto) [place] # (Auto) Eos # (Auto) Seg Neutrophils % Lymphocytes % (Manual) Eosinophils % (Manual) Basophils % (Manual) Nucleated RBC % Seg Neutrophils # Seg Neutrophils # Man Lymphocytes # (Manual) Monocytes # (Manual) Eosinophils # (Manual) Basophils # (Manual) Percent Retic PT INR Fibrinogen D-Dimer ABG pH 7.224 L POC ABG pCO2 49.1 H POC ABG pO2 61.5 L ABG pO2 ABG HCO3 ABG O2 Saturation ABG Base Excess ABG Hemoglobin 10.2 L ABG Oxyhemoglobin 86.2 L ABG Sodium 129.6 L ABG Potassium 5.4 H ABG Chloride 96.0 L ABG Glucose 161 H Oxyhemoglobin Carboxyhemoglobin Sodium Potassium Chloride Carbon Dioxide BUN Creatinine Glucose POC Glucose 163 H 130 H Hemoglobin A1c Calcium Phosphorus Magnesium AST ALT Alkaline Phosphatase Lactate Dehydrogenase C-Reactive Protein Total Protein Albumin Triglycerides Arterial Blood Glucose 161 H Arterial Blood Ionized Calcium 4.4 L Urine WBC (Auto) U Epithel Cells (Auto) Urine Creatinine Random Vancomycin Coronavirus (PCR) Crossmatch 03/30/21 03/31/21 03/31/21 23:49 00:28 05:20 WBC 17.3 H RBC 2.99 L Hgb 8.2 L Hct 25.3 L MCH 27 L MCHC RDW 18.3 H Plt Count 126 L Lymph % (Auto) [place] # (Auto) Eos # (Auto) Seg Neutrophils % Lymphocytes % (Manual) Eosinophils % (Manual) Basophils % (Manual) Nucleated RBC % Seg Neutrophils # Seg Neutrophils # Man Lymphocytes # (Manual) Monocytes # (Manual) Eosinophils # (Manual) Basophils # (Manual) Percent Retic PT INR Fibrinogen D-Dimer ABG pH 7.249 L POC ABG pCO2 POC ABG pO2 77.7 L ABG pO2 ABG HCO3 ABG O2 Saturation ABG Base Excess ABG Hemoglobin 9.0 L ABG Oxyhemoglobin 92.9 L ABG Sodium 130.4 L ABG Potassium 4.7 H ABG Chloride ABG Glucose 166 H Oxyhemoglobin Carboxyhemoglobin 0.4 L Sodium Potassium Chloride Carbon Dioxide BUN Creatinine Glucose POC Glucose 143 H Hemoglobin A1c Calcium Phosphorus Magnesium AST ALT Alkaline Phosphatase Lactate Dehydrogenase C-Reactive Protein Total Protein Albumin Triglycerides Arterial Blood Glucose 166 H Arterial Blood Ionized Calcium 4.3 L Urine WBC (Auto) U Epithel Cells (Auto) Urine Creatinine Random Vancomycin Coronavirus (PCR) Crossmatch 03/31/21 03/31/21 03/31/21 05:20 06:18 09:44 WBC RBC Hgb Hct MCH MCHC RDW Plt Count Lymph % (Auto) [place] # (Auto) Eos # (Auto) Seg Neutrophils % Lymphocytes % (Manual) Eosinophils % (Manual) Basophils % (Manual) Nucleated RBC % Seg Neutrophils # Seg Neutrophils # Man Lymphocytes # (Manual) Monocytes # (Manual) Eosinophils # (Manual) Basophils # (Manual) Percent Retic PT INR Fibrinogen D-Dimer ABG pH 7.247 L POC ABG pCO2 POC ABG pO2 ABG pO2 ABG HCO3 ABG O2 Saturation 94.4 L ABG Base Excess -5.1 L ABG Hemoglobin 8.2 L ABG Oxyhemoglobin ABG Sodium ABG Potassium ABG Chloride ABG Glucose Oxyhemoglobin 92.4 L Carboxyhemoglobin Sodium Potassium Chloride Carbon Dioxide BUN Creatinine Glucose POC Glucose 155 H Hemoglobin A1c Calcium Phosphorus 8.20 H D Magnesium AST ALT Alkaline Phosphatase Lactate Dehydrogenase C-Reactive Protein Total Protein Albumin Triglycerides Arterial Blood Glucose Arterial Blood Ionized Calcium Urine WBC (Auto) U Epithel Cells (Auto) Urine Creatinine Random Vancomycin Coronavirus (PCR) Crossmatch 03/31/21 03/31/21 03/31/21 09:49 09:55 09:55 WBC RBC Hgb Hct MCH MCHC RDW Plt Count Lymph % (Auto) [place] # (Auto) Eos # (Auto) Seg Neutrophils % Lymphocytes % (Manual) Eosinophils % (Manual) Basophils % (Manual) Nucleated RBC % Seg Neutrophils # Seg Neutrophils # Man Lymphocytes # (Manual) Monocytes # (Manual) Eosinophils # (Manual) Basophils # (Manual) Percent Retic 4.52 H PT 16.5 H INR 1.20 H Fibrinogen D-Dimer ABG pH POC ABG pCO2 POC ABG pO2 ABG pO2 ABG HCO3 ABG O2 Saturation ABG Base Excess ABG Hemoglobin ABG Oxyhemoglobin ABG Sodium ABG Potassium ABG Chloride ABG Glucose Oxyhemoglobin Carboxyhemoglobin Sodium 133 L Potassium Chloride 92.8 L Carbon Dioxide 20 L BUN 87 H Creatinine 8.9 H Glucose 177 H POC Glucose Hemoglobin A1c Calcium 8.2 L Phosphorus Magnesium AST 169 H ALT Alkaline Phosphatase 187 H Lactate Dehydrogenase C-Reactive Protein Total Protein Albumin 2.3 L Triglycerides Arterial Blood Glucose Arterial Blood Ionized Calcium Urine WBC (Auto) U Epithel Cells (Auto) Urine Creatinine Random Vancomycin Coronavirus (PCR) Crossmatch 03/31/21 03/31/21 03/31/21 09:55 09:55 11:25 WBC RBC Hgb Hct MCH MCHC RDW Plt Count Lymph % (Auto) [place] # (Auto) Eos # (Auto) Seg Neutrophils % Lymphocytes % (Manual) Eosinophils % (Manual) Basophils % (Manual) Nucleated RBC % Seg Neutrophils # Seg Neutrophils # Man Lymphocytes # (Manual) Monocytes # (Manual) Eosinophils # (Manual) Basophils # (Manual) Percent Retic PT INR Fibrinogen 491 H D-Dimer ABG pH POC ABG pCO2 POC ABG pO2 ABG pO2 ABG HCO3 ABG O2 Saturation ABG Base Excess ABG Hemoglobin ABG Oxyhemoglobin ABG Sodium ABG Potassium ABG Chloride ABG Glucose Oxyhemoglobin Carboxyhemoglobin Sodium Potassium Chloride Carbon Dioxide BUN Creatinine Glucose POC Glucose 178 H Hemoglobin A1c Calcium Phosphorus Magnesium AST ALT Alkaline Phosphatase Lactate Dehydrogenase 509 H C-Reactive Protein Total Protein Albumin Triglycerides Arterial Blood Glucose Arterial Blood Ionized Calcium Urine WBC (Auto) U Epithel Cells (Auto) Urine Creatinine Random Vancomycin Coronavirus (PCR) Crossmatch 03/31/21 03/31/21 03/31/21 12:30 17:40 21:00 WBC RBC Hgb Hct MCH MCHC RDW Plt Count Lymph % (Auto) [place] # (Auto) Eos # (Auto) Seg Neutrophils % Lymphocytes % (Manual) Eosinophils % (Manual) Basophils % (Manual) Nucleated RBC % Seg Neutrophils # Seg Neutrophils # Man Lymphocytes # (Manual) Monocytes # (Manual) Eosinophils # (Manual) Basophils # (Manual) Percent Retic PT INR Fibrinogen D-Dimer ABG pH 7.235 L 7.216 L POC ABG pCO2 POC ABG pO2 ABG pO2 76.8 L 113.9 H ABG HCO3 ABG O2 Saturation 93.2 L ABG Base Excess -5.3 L -7.3 L ABG Hemoglobin 6.3 L 8.0 L ABG Oxyhemoglobin ABG Sodium ABG Potassium ABG Chloride ABG Glucose Oxyhemoglobin 91.1 L Carboxyhemoglobin Sodium Potassium Chloride Carbon Dioxide BUN Creatinine Glucose POC Glucose 245 H Hemoglobin A1c Calcium Phosphorus Magnesium AST ALT Alkaline Phosphatase Lactate Dehydrogenase C-Reactive Protein Total Protein Albumin Triglycerides Arterial Blood Glucose Arterial Blood Ionized Calcium Urine WBC (Auto) U Epithel Cells (Auto) Urine Creatinine Random Vancomycin Coronavirus (PCR) Crossmatch 04/01/21 04/01/21 04/01/21 00:11 05:09 08:25 WBC RBC Hgb Hct MCH MCHC RDW Plt Count Lymph % (Auto) [place] # (Auto) Eos # (Auto) Seg Neutrophils % Lymphocytes % (Manual) Eosinophils % (Manual) Basophils % (Manual) Nucleated RBC % Seg Neutrophils # Seg Neutrophils # Man Lymphocytes # (Manual) Monocytes # (Manual) Eosinophils # (Manual) Basophils # (Manual) Percent Retic PT INR Fibrinogen D-Dimer ABG pH 7.225 L POC ABG pCO2 POC ABG pO2 ABG pO2 76.4 L ABG HCO3 ABG O2 Saturation 92.2 L ABG Base Excess -7.6 L ABG Hemoglobin 7.3 L ABG Oxyhemoglobin ABG Sodium ABG Potassium ABG Chloride ABG Glucose Oxyhemoglobin 90.2 L Carboxyhemoglobin Sodium Potassium Chloride Carbon Dioxide BUN Creatinine Glucose POC Glucose 209 H 173 H Hemoglobin A1c Calcium Phosphorus Magnesium AST ALT Alkaline Phosphatase Lactate Dehydrogenase C-Reactive Protein Total Protein Albumin Triglycerides Arterial Blood Glucose Arterial Blood Ionized Calcium Urine WBC (Auto) U Epithel Cells (Auto) Urine Creatinine Random Vancomycin Coronavirus (PCR) Crossmatch 04/01/21 04/01/21 04/01/21 12:01 12:05 17:55 WBC RBC Hgb Hct MCH MCHC RDW Plt Count Lymph % (Auto) [place] # (Auto) Eos # (Auto) Seg Neutrophils % Lymphocytes % (Manual) Eosinophils % (Manual) Basophils % (Manual) Nucleated RBC % Seg Neutrophils # Seg Neutrophils # Man Lymphocytes # (Manual) Monocytes # (Manual) Eosinophils # (Manual) Basophils # (Manual) Percent Retic PT INR Fibrinogen D-Dimer ABG pH POC ABG pCO2 POC ABG pO2 ABG pO2 ABG HCO3 ABG O2 Saturation ABG Base Excess ABG Hemoglobin ABG Oxyhemoglobin ABG Sodium ABG Potassium ABG Chloride ABG Glucose Oxyhemoglobin Carboxyhemoglobin Sodium Potassium 5.9 H Chloride Carbon Dioxide BUN Creatinine Glucose POC Glucose 202 H 217 H Hemoglobin A1c Calcium Phosphorus Magnesium AST ALT Alkaline Phosphatase Lactate Dehydrogenase C-Reactive Protein Total Protein Albumin Triglycerides Arterial Blood Glucose Arterial Blood Ionized Calcium Urine WBC (Auto) U Epithel Cells (Auto) Urine Creatinine Random Vancomycin Coronavirus (PCR) Crossmatch 04/01/21 04/01/21 04/01/21 Unknown Unknown 23:59 WBC 27.2 H RBC 3.08 L Hgb 8.4 L Hct 26.0 L MCH 27 L MCHC RDW 18.5 H Plt Count Lymph % (Auto) [place] # (Auto) Eos # (Auto) Seg Neutrophils % Lymphocytes % (Manual) Eosinophils % (Manual) Basophils % (Manual) Nucleated RBC % Seg Neutrophils # Seg Neutrophils # Man Lymphocytes # (Manual) Monocytes # (Manual) Eosinophils # (Manual) Basophils # (Manual) Percent Retic PT INR Fibrinogen D-Dimer ABG pH POC ABG pCO2 POC ABG pO2 ABG pO2 ABG HCO3 ABG O2 Saturation ABG Base Excess ABG Hemoglobin ABG Oxyhemoglobin ABG Sodium ABG Potassium ABG Chloride ABG Glucose Oxyhemoglobin Carboxyhemoglobin Sodium 132 L Potassium 6.6 H* D Chloride 91.3 L Carbon Dioxide 17 L BUN 104 H Creatinine 9.3 H Glucose 199 H POC Glucose 172 H Hemoglobin A1c Calcium 8.3 L Phosphorus Magnesium AST 236 H ALT 93 H Alkaline Phosphatase 191 H Lactate Dehydrogenase C-Reactive Protein Total Protein Albumin 2.4 L Triglycerides Arterial Blood Glucose Arterial Blood Ionized Calcium Urine WBC (Auto) U Epithel Cells (Auto) Urine Creatinine Random Vancomycin Coronavirus (PCR) Crossmatch 04/02/21 04/02/21 04/02/21 04:00 04:00 05:00 WBC 31.0 H RBC 2.93 L Hgb 8.0 L Hct 24.7 L MCH 27 L MCHC RDW 19.2 H Plt Count 131 L Lymph % (Auto) [place] # (Auto) Eos # (Auto) Seg Neutrophils % Lymphocytes % (Manual) Eosinophils % (Manual) Basophils % (Manual) Nucleated RBC % Seg Neutrophils # Seg Neutrophils # Man Lymphocytes # (Manual) Monocytes # (Manual) Eosinophils # (Manual) Basophils # (Manual) Percent Retic PT 16.0 H INR 1.16 H Fibrinogen D-Dimer ABG pH POC ABG pCO2 POC ABG pO2 ABG pO2 ABG HCO3 ABG O2 Saturation ABG Base Excess ABG Hemoglobin ABG Oxyhemoglobin ABG Sodium ABG Potassium ABG Chloride ABG Glucose Oxyhemoglobin Carboxyhemoglobin Sodium 135 L Potassium 5.3 H Chloride 96.1 L Carbon Dioxide 18 L BUN 80 H Creatinine 6.8 H Glucose 174 H POC Glucose Hemoglobin A1c Calcium 7.7 L Phosphorus Magnesium AST 106 H ALT 60 H Alkaline Phosphatase Lactate Dehydrogenase C-Reactive Protein Total Protein 5.9 L Albumin 3.5 L Triglycerides 579 H Arterial Blood Glucose Arterial Blood Ionized Calcium Urine WBC (Auto) U Epithel Cells (Auto) Urine Creatinine Random Vancomycin Coronavirus (PCR) Crossmatch 04/02/21 04/02/21 04/02/21 05:09 08:55 11:06 WBC RBC Hgb Hct MCH MCHC RDW Plt Count Lymph % (Auto) [place] # (Auto) Eos # (Auto) Seg Neutrophils % Lymphocytes % (Manual) Eosinophils % (Manual) Basophils % (Manual) Nucleated RBC % Seg Neutrophils # Seg Neutrophils # Man Lymphocytes # (Manual) Monocytes # (Manual) Eosinophils # (Manual) Basophils # (Manual) Percent Retic PT INR Fibrinogen D-Dimer ABG pH 7.188 L POC ABG pCO2 58.3 H POC ABG pO2 132.8 H ABG pO2 ABG HCO3 ABG O2 Saturation ABG Base Excess ABG Hemoglobin 8.4 L ABG Oxyhemoglobin ABG Sodium ABG Potassium 5.0 H ABG Chloride 97.0 L ABG Glucose 156 H Oxyhemoglobin Carboxyhemoglobin 0.4 L Sodium Potassium Chloride Carbon Dioxide BUN Creatinine Glucose POC Glucose 148 H 167 H Hemoglobin A1c Calcium Phosphorus Magnesium AST ALT Alkaline Phosphatase Lactate Dehydrogenase C-Reactive Protein Total Protein Albumin Triglycerides Arterial Blood Glucose 156 H Arterial Blood Ionized Calcium 4.2 L Urine WBC (Auto) U Epithel Cells (Auto) Urine Creatinine Random Vancomycin Coronavirus (PCR) Crossmatch 04/02/21 04/02/21 04/03/21 17:57 20:40 00:28 WBC RBC Hgb Hct MCH MCHC RDW Plt Count Lymph % (Auto) [place] # (Auto) Eos # (Auto) Seg Neutrophils % Lymphocytes % (Manual) Eosinophils % (Manual) Basophils % (Manual) Nucleated RBC % Seg Neutrophils # Seg Neutrophils # Man Lymphocytes # (Manual) Monocytes # (Manual) Eosinophils # (Manual) Basophils # (Manual) Percent Retic PT INR Fibrinogen D-Dimer ABG pH POC ABG pCO2 POC ABG pO2 ABG pO2 111.9 H ABG HCO3 18.9 L ABG O2 Saturation ABG Base Excess -9.9 L ABG Hemoglobin ABG Oxyhemoglobin ABG Sodium ABG Potassium ABG Chloride ABG Glucose Oxyhemoglobin Carboxyhemoglobin Sodium Potassium Chloride Carbon Dioxide BUN Creatinine Glucose POC Glucose 205 H 217 H Hemoglobin A1c Calcium Phosphorus Magnesium AST ALT Alkaline Phosphatase Lactate Dehydrogenase C-Reactive Protein Total Protein Albumin Triglycerides Arterial Blood Glucose Arterial Blood Ionized Calcium Urine WBC (Auto) U Epithel Cells (Auto) Urine Creatinine Random Vancomycin Coronavirus (PCR) Crossmatch 04/03/21 04/03/21 04/03/21 03:39 04:30 04:30 WBC 31.1 H RBC 2.78 L Hgb 8.0 L Hct 24.0 L MCH MCHC RDW 19.0 H Plt Count Lymph % (Auto) [place] # (Auto) Eos # (Auto) Seg Neutrophils % Lymphocytes % (Manual) Eosinophils % (Manual) 27.0 H Basophils % (Manual) 2.0 H Nucleated RBC % Seg Neutrophils # Seg Neutrophils # Man 13.7 H Lymphocytes # (Manual) 8.4 H Monocytes # (Manual) Eosinophils # (Manual) 8.4 H Basophils # (Manual) 0.6 H Percent Retic PT INR Fibrinogen D-Dimer ABG pH POC ABG pCO2 POC ABG pO2 ABG pO2 ABG HCO3 ABG O2 Saturation ABG Base Excess ABG Hemoglobin ABG Oxyhemoglobin ABG Sodium ABG Potassium ABG Chloride ABG Glucose Oxyhemoglobin Carboxyhemoglobin Sodium 132 L Potassium 5.8 H Chloride 94.5 L Carbon Dioxide 16 L BUN 97 H Creatinine 7.7 H Glucose 230 H POC Glucose 201 H Hemoglobin A1c Calcium 7.6 L Phosphorus Magnesium AST 47 H ALT Alkaline Phosphatase 146 H Lactate Dehydrogenase C-Reactive Protein Total Protein 5.2 L Albumin 3.4 L Triglycerides Arterial Blood Glucose Arterial Blood Ionized Calcium Urine WBC (Auto) U Epithel Cells (Auto) Urine Creatinine Random Vancomycin Coronavirus (PCR) Crossmatch 04/03/21 04/03/21 04/03/21 04:30 08:31 11:29 WBC RBC Hgb Hct MCH MCHC RDW Plt Count Lymph % (Auto) [place] # (Auto) Eos # (Auto) Seg Neutrophils % Lymphocytes % (Manual) Eosinophils % (Manual) Basophils % (Manual) Nucleated RBC % Seg Neutrophils # Seg Neutrophils # Man Lymphocytes # (Manual) Monocytes # (Manual) Eosinophils # (Manual) Basophils # (Manual) Percent Retic PT INR Fibrinogen D-Dimer ABG pH 7.195 L* POC ABG pCO2 POC ABG pO2 ABG pO2 102.6 H ABG HCO3 ABG O2 Saturation ABG Base Excess -7.2 L ABG Hemoglobin 8.0 L ABG Oxyhemoglobin ABG Sodium ABG Potassium ABG Chloride ABG Glucose Oxyhemoglobin 94.7 L Carboxyhemoglobin Sodium Potassium Chloride Carbon Dioxide BUN Creatinine Glucose POC Glucose 230 H Hemoglobin A1c Calcium Phosphorus 10.30 H Magnesium AST ALT Alkaline Phosphatase Lactate Dehydrogenase C-Reactive Protein Total Protein Albumin Triglycerides Arterial Blood Glucose Arterial Blood Ionized Calcium Urine WBC (Auto) U Epithel Cells (Auto) Urine Creatinine Random Vancomycin Coronavirus (PCR) Crossmatch 04/03/21 04/03/21 04/04/21 16:53 20:45 05:00 WBC 28.8 H RBC 2.64 L Hgb 8.7 L Hct 22.2 L MCH 33 H MCHC 39 H* RDW 18.6 H Plt Count Lymph % (Auto) [place] # (Auto) Eos # (Auto) Seg Neutrophils % Lymphocytes % (Manual) Eosinophils % (Manual) Basophils % (Manual) Nucleated RBC % Seg Neutrophils # Seg Neutrophils # Man Lymphocytes # (Manual) Monocytes # (Manual) Eosinophils # (Manual) Basophils # (Manual) Percent Retic PT INR Fibrinogen D-Dimer ABG pH POC ABG pCO2 POC ABG pO2 ABG pO2 ABG HCO3 ABG O2 Saturation ABG Base Excess ABG Hemoglobin ABG Oxyhemoglobin ABG Sodium ABG Potassium ABG Chloride ABG Glucose Oxyhemoglobin 94.8 L Carboxyhemoglobin Sodium Potassium Chloride Carbon Dioxide BUN Creatinine Glucose POC Glucose 227 H Hemoglobin A1c Calcium Phosphorus Magnesium AST ALT Alkaline Phosphatase Lactate Dehydrogenase C-Reactive Protein Total Protein Albumin Triglycerides Arterial Blood Glucose Arterial Blood Ionized Calcium Urine WBC (Auto) U Epithel Cells (Auto) Urine Creatinine Random Vancomycin Coronavirus (PCR) Crossmatch 04/04/21 04/04/21 04/04/21 05:29 07:55 09:20 WBC RBC Hgb Hct MCH MCHC RDW Plt Count Lymph % (Auto) [place] # (Auto) Eos # (Auto) Seg Neutrophils % Lymphocytes % (Manual) Eosinophils % (Manual) Basophils % (Manual) Nucleated RBC % Seg Neutrophils # Seg Neutrophils # Man Lymphocytes # (Manual) Monocytes # (Manual) Eosinophils # (Manual) Basophils # (Manual) Percent Retic PT INR Fibrinogen D-Dimer ABG pH POC ABG pCO2 POC ABG pO2 ABG pO2 ABG HCO3 ABG O2 Saturation ABG Base Excess ABG Hemoglobin ABG Oxyhemoglobin ABG Sodium ABG Potassium ABG Chloride ABG Glucose Oxyhemoglobin Carboxyhemoglobin Sodium 133 L Potassium Chloride 91.0 L Carbon Dioxide 20 L BUN 75 H Creatinine 4.7 H Glucose 184 H POC Glucose 133 H Hemoglobin A1c Calcium 7.3 L Phosphorus Magnesium AST < 5 L ALT < 5 L Alkaline Phosphatase 200 H Lactate Dehydrogenase C-Reactive Protein Total Protein 5.6 L Albumin 2.9 L Triglycerides Arterial Blood Glucose Arterial Blood Ionized Calcium Urine WBC (Auto) U Epithel Cells (Auto) Urine Creatinine Random Vancomycin Coronavirus (PCR) Crossmatch See Detail 04/04/21 04/04/21 04/04/21 12:01 14:06 17:05 WBC RBC Hgb Hct MCH MCHC RDW Plt Count Lymph % (Auto) [place] # (Auto) Eos # (Auto) Seg Neutrophils % Lymphocytes % (Manual) Eosinophils % (Manual) Basophils % (Manual) Nucleated RBC % Seg Neutrophils # Seg Neutrophils # Man Lymphocytes # (Manual) Monocytes # (Manual) Eosinophils # (Manual) Basophils # (Manual) Percent Retic PT INR Fibrinogen D-Dimer ABG pH 7.162 L* POC ABG pCO2 POC ABG pO2 ABG pO2 91.3 H ABG HCO3 ABG O2 Saturation 94.8 L ABG Base Excess -4.0 L ABG Hemoglobin 7.6 L ABG Oxyhemoglobin ABG Sodium ABG Potassium ABG Chloride ABG Glucose Oxyhemoglobin 92.4 L Carboxyhemoglobin Sodium Potassium Chloride Carbon Dioxide BUN Creatinine Glucose POC Glucose 199 H 166 H Hemoglobin A1c Calcium Phosphorus Magnesium AST ALT Alkaline Phosphatase Lactate Dehydrogenase C-Reactive Protein Total Protein Albumin Triglycerides Arterial Blood Glucose Arterial Blood Ionized Calcium Urine WBC (Auto) U Epithel Cells (Auto) Urine Creatinine Random Vancomycin Coronavirus (PCR) Crossmatch 04/04/21 04/04/21 04/05/21 21:14 23:30 05:20 WBC RBC Hgb Hct MCH MCHC RDW Plt Count Lymph % (Auto) [place] # (Auto) Eos # (Auto) Seg Neutrophils % Lymphocytes % (Manual) Eosinophils % (Manual) Basophils % (Manual) Nucleated RBC % Seg Neutrophils # Seg Neutrophils # Man Lymphocytes # (Manual) Monocytes # (Manual) Eosinophils # (Manual) Basophils # (Manual) Percent Retic PT INR Fibrinogen D-Dimer ABG pH 7.257 L POC ABG pCO2 POC ABG pO2 ABG pO2 73.8 L ABG HCO3 ABG O2 Saturation 91.6 L ABG Base Excess -2.7 L ABG Hemoglobin 8.6 L ABG Oxyhemoglobin ABG Sodium ABG Potassium ABG Chloride ABG Glucose Oxyhemoglobin 89.1 L Carboxyhemoglobin Sodium 131 L Potassium Chloride 91.2 L Carbon Dioxide 17 L BUN 85 H Creatinine 5.1 H Glucose 183 H POC Glucose 158 H Hemoglobin A1c Calcium 7.4 L Phosphorus Magnesium AST ALT Alkaline Phosphatase 190 H Lactate Dehydrogenase 394 H C-Reactive Protein Total Protein 5.8 L Albumin 2.7 L Triglycerides Arterial Blood Glucose Arterial Blood Ionized Calcium Urine WBC (Auto) U Epithel Cells (Auto) Urine Creatinine Random Vancomycin Coronavirus (PCR) Crossmatch 04/05/21 04/05/21 04/05/21 05:20 05:20 05:24 WBC 30.8 H RBC 2.83 L Hgb 8.4 L Hct 24.4 L MCH MCHC 35 H RDW 18.9 H Plt Count Lymph % (Auto) [place] # (Auto) Eos # (Auto) Seg Neutrophils % Lymphocytes % (Manual) Eosinophils % (Manual) Basophils % (Manual) Nucleated RBC % Seg Neutrophils # Seg Neutrophils # Man Lymphocytes # (Manual) Monocytes # (Manual) Eosinophils # (Manual) Basophils # (Manual) Percent Retic PT INR Fibrinogen D-Dimer ABG pH POC ABG pCO2 POC ABG pO2 ABG pO2 ABG HCO3 ABG O2 Saturation ABG Base Excess ABG Hemoglobin ABG Oxyhemoglobin ABG Sodium ABG Potassium ABG Chloride ABG Glucose Oxyhemoglobin Carboxyhemoglobin Sodium Potassium Chloride Carbon Dioxide BUN Creatinine Glucose POC Glucose 162 H Hemoglobin A1c Calcium Phosphorus 9.40 H Magnesium AST ALT Alkaline Phosphatase Lactate Dehydrogenase C-Reactive Protein Total Protein Albumin Triglycerides Arterial Blood Glucose Arterial Blood Ionized Calcium Urine WBC (Auto) U Epithel Cells (Auto) Urine Creatinine Random Vancomycin Coronavirus (PCR) Crossmatch 04/05/21 04/05/21 04/05/21 11:31 12:23 21:40 WBC RBC Hgb Hct MCH MCHC RDW Plt Count Lymph % (Auto) [place] # (Auto) Eos # (Auto) Seg Neutrophils % Lymphocytes % (Manual) Eosinophils % (Manual) Basophils % (Manual) Nucleated RBC % Seg Neutrophils # Seg Neutrophils # Man Lymphocytes # (Manual) Monocytes # (Manual) Eosinophils # (Manual) Basophils # (Manual) Percent Retic PT INR Fibrinogen D-Dimer ABG pH 7.325 L POC ABG pCO2 POC ABG pO2 ABG pO2 65.6 L ABG HCO3 ABG O2 Saturation 91.2 L ABG Base Excess ABG Hemoglobin 6.7 L ABG Oxyhemoglobin ABG Sodium ABG Potassium ABG Chloride ABG Glucose Oxyhemoglobin 89.0 L Carboxyhemoglobin Sodium Potassium Chloride Carbon Dioxide BUN Creatinine Glucose POC Glucose 196 H 190 H Hemoglobin A1c Calcium Phosphorus Magnesium AST ALT Alkaline Phosphatase Lactate Dehydrogenase C-Reactive Protein Total Protein Albumin Triglycerides Arterial Blood Glucose Arterial Blood Ionized Calcium Urine WBC (Auto) U Epithel Cells (Auto) Urine Creatinine Random Vancomycin Coronavirus (PCR) Crossmatch 04/05/21 04/06/21 04/06/21 23:53 05:35 06:00 WBC RBC Hgb Hct MCH MCHC RDW Plt Count Lymph % (Auto) [place] # (Auto) Eos # (Auto) Seg Neutrophils % Lymphocytes % (Manual) Eosinophils % (Manual) Basophils % (Manual) Nucleated RBC % Seg Neutrophils # Seg Neutrophils # Man Lymphocytes # (Manual) Monocytes # (Manual) Eosinophils # (Manual) Basophils # (Manual) Percent Retic PT INR Fibrinogen D-Dimer ABG pH POC ABG pCO2 POC ABG pO2 ABG pO2 ABG HCO3 ABG O2 Saturation ABG Base Excess ABG Hemoglobin ABG Oxyhemoglobin ABG Sodium ABG Potassium ABG Chloride ABG Glucose Oxyhemoglobin Carboxyhemoglobin Sodium 132 L Potassium Chloride 90.7 L Carbon Dioxide 21 L BUN 74 H Creatinine 4.3 H Glucose 156 H POC Glucose 192 H 139 H Hemoglobin A1c Calcium 7.9 L Phosphorus 6.90 H D Magnesium AST < 5 L ALT < 5 L Alkaline Phosphatase 185 H Lactate Dehydrogenase C-Reactive Protein Total Protein 5.7 L Albumin 2.5 L Triglycerides Arterial Blood Glucose Arterial Blood Ionized Calcium Urine WBC (Auto) U Epithel Cells (Auto) Urine Creatinine Random Vancomycin Coronavirus (PCR) Crossmatch 04/06/21 04/06/21 04/06/21 06:00 11:27 18:01 WBC 26.7 H RBC 2.39 L Hgb 6.9 L Hct 20.1 L MCH MCHC RDW 18.7 H Plt Count Lymph % (Auto) [place] # (Auto) Eos # (Auto) Seg Neutrophils % Lymphocytes % (Manual) Eosinophils % (Manual) Basophils % (Manual) Nucleated RBC % Seg Neutrophils # Seg Neutrophils # Man Lymphocytes # (Manual) Monocytes # (Manual) Eosinophils # (Manual) Basophils # (Manual) Percent Retic PT INR Fibrinogen D-Dimer ABG pH POC ABG pCO2 POC ABG pO2 ABG pO2 ABG HCO3 ABG O2 Saturation ABG Base Excess ABG Hemoglobin ABG Oxyhemoglobin ABG Sodium ABG Potassium ABG Chloride ABG Glucose Oxyhemoglobin Carboxyhemoglobin Sodium Potassium Chloride Carbon Dioxide BUN Creatinine Glucose POC Glucose 166 H 159 H Hemoglobin A1c Calcium Phosphorus Magnesium AST ALT Alkaline Phosphatase Lactate Dehydrogenase C-Reactive Protein Total Protein Albumin Triglycerides Arterial Blood Glucose Arterial Blood Ionized Calcium Urine WBC (Auto) U Epithel Cells (Auto) Urine Creatinine Random Vancomycin Coronavirus (PCR) Crossmatch 04/06/21 04/06/21 04/06/21 20:50 23:43 Unknown WBC RBC Hgb Hct MCH MCHC RDW Plt Count Lymph % (Auto) [place] # (Auto) Eos # (Auto) Seg Neutrophils % Lymphocytes % (Manual) Eosinophils % (Manual) Basophils % (Manual) Nucleated RBC % Seg Neutrophils # Seg Neutrophils # Man Lymphocytes # (Manual) Monocytes # (Manual) Eosinophils # (Manual) Basophils # (Manual) Percent Retic PT INR Fibrinogen D-Dimer ABG pH 7.303 L POC ABG pCO2 POC ABG pO2 67.9 L ABG pO2 ABG HCO3 ABG O2 Saturation ABG Base Excess ABG Hemoglobin 7.6 L ABG Oxyhemoglobin 90.2 L ABG Sodium 128.6 L ABG Potassium ABG Chloride 97.0 L ABG Glucose 154 H Oxyhemoglobin Carboxyhemoglobin Sodium Potassium Chloride Carbon Dioxide BUN Creatinine Glucose POC Glucose 137 H Hemoglobin A1c Calcium Phosphorus Magnesium AST ALT Alkaline Phosphatase Lactate Dehydrogenase C-Reactive Protein Total Protein Albumin Triglycerides Arterial Blood Glucose 154 H Arterial Blood Ionized Calcium Urine WBC (Auto) 148.0 H U Epithel Cells (Auto) 102.0 H Urine Creatinine Random Vancomycin Coronavirus (PCR) Crossmatch 04/07/21 04/07/21 04/07/21 03:50 03:50 03:50 WBC 26.7 H RBC 2.66 L Hgb 7.6 L Hct 23.2 L MCH MCHC RDW 18.5 H Plt Count Lymph % (Auto) [place] # (Auto) Eos # (Auto) Seg Neutrophils % Lymphocytes % (Manual) 10.0 L Eosinophils % (Manual) 19.0 H Basophils % (Manual) Nucleated RBC % 2.0 H Seg Neutrophils # Seg Neutrophils # Man 17.9 H Lymphocytes # (Manual) Monocytes # (Manual) 1.1 H Eosinophils # (Manual) 5.1 H Basophils # (Manual) Percent Retic PT INR Fibrinogen D-Dimer 2178 H ABG pH POC ABG pCO2 POC ABG pO2 ABG pO2 ABG HCO3 ABG O2 Saturation ABG Base Excess ABG Hemoglobin ABG Oxyhemoglobin ABG Sodium ABG Potassium ABG Chloride ABG Glucose Oxyhemoglobin Carboxyhemoglobin Sodium 130 L Potassium Chloride 91.1 L Carbon Dioxide 19 L BUN 92 H Creatinine 4.2 H Glucose 213 H POC Glucose Hemoglobin A1c Calcium 7.8 L Phosphorus Magnesium AST ALT Alkaline Phosphatase Lactate Dehydrogenase C-Reactive Protein Total Protein Albumin Triglycerides Arterial Blood Glucose Arterial Blood Ionized Calcium Urine WBC (Auto) U Epithel Cells (Auto) Urine Creatinine Random Vancomycin Coronavirus (PCR) Crossmatch 04/07/21 04/07/21 04/07/21 04:00 05:42 11:10 WBC RBC Hgb Hct MCH MCHC RDW Plt Count Lymph % (Auto) [place] # (Auto) Eos # (Auto) Seg Neutrophils % Lymphocytes % (Manual) Eosinophils % (Manual) Basophils % (Manual) Nucleated RBC % Seg Neutrophils # Seg Neutrophils # Man Lymphocytes # (Manual) Monocytes # (Manual) Eosinophils # (Manual) Basophils # (Manual) Percent Retic PT INR Fibrinogen D-Dimer ABG pH POC ABG pCO2 POC ABG pO2 ABG pO2 ABG HCO3 ABG O2 Saturation ABG Base Excess ABG Hemoglobin ABG Oxyhemoglobin ABG Sodium ABG Potassium ABG Chloride ABG Glucose Oxyhemoglobin Carboxyhemoglobin Sodium 129 L Potassium 5.1 H Chloride 89.6 L Carbon Dioxide 18 L BUN 94 H Creatinine 4.2 H Glucose 213 H POC Glucose 177 H 136 H Hemoglobin A1c Calcium 7.9 L Phosphorus Magnesium AST ALT Alkaline Phosphatase 167 H Lactate Dehydrogenase C-Reactive Protein Total Protein Albumin 2.8 L Triglycerides Arterial Blood Glucose Arterial Blood Ionized Calcium Urine WBC (Auto) U Epithel Cells (Auto) Urine Creatinine Random Vancomycin Coronavirus (PCR) Crossmatch 04/07/21 04/07/21 04/08/21 16:19 21:30 02:32 WBC RBC Hgb Hct MCH MCHC RDW Plt Count Lymph % (Auto) [place] # (Auto) Eos # (Auto) Seg Neutrophils % Lymphocytes % (Manual) Eosinophils % (Manual) Basophils % (Manual) Nucleated RBC % Seg Neutrophils # Seg Neutrophils # Man Lymphocytes # (Manual) Monocytes # (Manual) Eosinophils # (Manual) Basophils # (Manual) Percent Retic PT INR Fibrinogen D-Dimer ABG pH 7.209 L POC ABG pCO2 64.8 H POC ABG pO2 ABG pO2 ABG HCO3 ABG O2 Saturation ABG Base Excess ABG Hemoglobin 7.9 L ABG Oxyhemoglobin 93.8 L ABG Sodium 128.8 L ABG Potassium 4.6 H ABG Chloride 97.0 L ABG Glucose 170 H Oxyhemoglobin Carboxyhemoglobin 1.6 H Sodium Potassium Chloride Carbon Dioxide BUN Creatinine Glucose POC Glucose 155 H 141 H Hemoglobin A1c Calcium Phosphorus Magnesium AST ALT Alkaline Phosphatase Lactate Dehydrogenase C-Reactive Protein Total Protein Albumin Triglycerides Arterial Blood Glucose 170 H Arterial Blood Ionized Calcium 4.2 L Urine WBC (Auto) U Epithel Cells (Auto) Urine Creatinine Random Vancomycin Coronavirus (PCR) Crossmatch 04/08/21 04/08/21 04/08/21 04:00 04:40 04:40 WBC 23.7 H RBC 2.51 L Hgb 6.9 L Hct 22.1 L MCH 27 L MCHC RDW 18.4 H Plt Count Lymph % (Auto) [place] # (Auto) Eos # (Auto) Seg Neutrophils % Lymphocytes % (Manual) Eosinophils % (Manual) Basophils % (Manual) Nucleated RBC % Seg Neutrophils # Seg Neutrophils # Man Lymphocytes # (Manual) Monocytes # (Manual) Eosinophils # (Manual) Basophils # (Manual) Percent Retic PT INR Fibrinogen D-Dimer 2696.79 H ABG pH POC ABG pCO2 POC ABG pO2 ABG pO2 ABG HCO3 ABG O2 Saturation ABG Base Excess ABG Hemoglobin ABG Oxyhemoglobin ABG Sodium ABG Potassium ABG Chloride ABG Glucose Oxyhemoglobin Carboxyhemoglobin Sodium 133 L Potassium 5.5 H Chloride 93.5 L Carbon Dioxide BUN 78 H Creatinine 3.5 H Glucose 171 H POC Glucose Hemoglobin A1c Calcium 8.1 L Phosphorus 9.30 H Magnesium AST ALT Alkaline Phosphatase Lactate Dehydrogenase C-Reactive Protein 26.10 H Total Protein Albumin Triglycerides 487 H Arterial Blood Glucose Arterial Blood Ionized Calcium Urine WBC (Auto) U Epithel Cells (Auto) Urine Creatinine Random Vancomycin Coronavirus (PCR) Crossmatch 04/08/21 04/08/21 04/08/21 09:55 11:37 13:55 WBC RBC Hgb Hct MCH MCHC RDW Plt Count Lymph % (Auto) [place] # (Auto) Eos # (Auto) Seg Neutrophils % Lymphocytes % (Manual) Eosinophils % (Manual) Basophils % (Manual) Nucleated RBC % Seg Neutrophils # Seg Neutrophils # Man Lymphocytes # (Manual) Monocytes # (Manual) Eosinophils # (Manual) Basophils # (Manual) Percent Retic PT INR Fibrinogen D-Dimer ABG pH 7.114 L* POC ABG pCO2 POC ABG pO2 ABG pO2 75.9 L ABG HCO3 26.2 H ABG O2 Saturation 90.6 L ABG Base Excess -3.6 L ABG Hemoglobin 8.2 L ABG Oxyhemoglobin ABG Sodium ABG Potassium ABG Chloride ABG Glucose Oxyhemoglobin 88.0 L Carboxyhemoglobin Sodium Potassium Chloride Carbon Dioxide BUN Creatinine Glucose POC Glucose 156 H Hemoglobin A1c Calcium Phosphorus Magnesium AST ALT Alkaline Phosphatase Lactate Dehydrogenase C-Reactive Protein Total Protein Albumin Triglycerides Arterial Blood Glucose Arterial Blood Ionized Calcium Urine WBC (Auto) U Epithel Cells (Auto) Urine Creatinine Random Vancomycin Coronavirus (PCR) Crossmatch See Detail 04/08/21 04/08/21 04/08/21 17:04 20:53 23:56 WBC RBC Hgb Hct MCH MCHC RDW Plt Count Lymph % (Auto) [place] # (Auto) Eos # (Auto) Seg Neutrophils % Lymphocytes % (Manual) Eosinophils % (Manual) Basophils % (Manual) Nucleated RBC % Seg Neutrophils # Seg Neutrophils # Man Lymphocytes # (Manual) Monocytes # (Manual) Eosinophils # (Manual) Basophils # (Manual) Percent Retic PT INR Fibrinogen D-Dimer ABG pH 7.207 L POC ABG pCO2 49.8 H POC ABG pO2 ABG pO2 ABG HCO3 ABG O2 Saturation ABG Base Excess ABG Hemoglobin 7.6 L ABG Oxyhemoglobin ABG Sodium 127.3 L ABG Potassium 5.7 H ABG Chloride 96.0 L ABG Glucose 185 H Oxyhemoglobin Carboxyhemoglobin Sodium Potassium Chloride Carbon Dioxide BUN Creatinine Glucose POC Glucose 178 H 189 H Hemoglobin A1c Calcium Phosphorus Magnesium AST ALT Alkaline Phosphatase Lactate Dehydrogenase C-Reactive Protein Total Protein Albumin Triglycerides Arterial Blood Glucose 185 H Arterial Blood Ionized Calcium 4.3 L Urine WBC (Auto) U Epithel Cells (Auto) Urine Creatinine Random Vancomycin Coronavirus (PCR) Crossmatch 04/09/21 04/09/21 04/09/21 04:00 04:00 05:24 WBC 21.9 H RBC 2.70 L Hgb 7.8 L Hct 24.1 L MCH MCHC RDW 18.3 H Plt Count Lymph % (Auto) [place] # (Auto) Eos # (Auto) Seg Neutrophils % Lymphocytes % (Manual) Eosinophils % (Manual) Basophils % (Manual) Nucleated RBC % Seg Neutrophils # Seg Neutrophils # Man Lymphocytes # (Manual) Monocytes # (Manual) Eosinophils # (Manual) Basophils # (Manual) Percent Retic PT INR Fibrinogen D-Dimer ABG pH POC ABG pCO2 POC ABG pO2 ABG pO2 ABG HCO3 ABG O2 Saturation ABG Base Excess ABG Hemoglobin ABG Oxyhemoglobin ABG Sodium ABG Potassium ABG Chloride ABG Glucose Oxyhemoglobin Carboxyhemoglobin Sodium 131 L Potassium 6.3 H* Chloride 93.0 L Carbon Dioxide 19 L BUN 98 H Creatinine 4.6 H Glucose 208 H POC Glucose 191 H Hemoglobin A1c Calcium 8.1 L Phosphorus Magnesium AST ALT Alkaline Phosphatase Lactate Dehydrogenase C-Reactive Protein Total Protein Albumin Triglycerides Arterial Blood Glucose Arterial Blood Ionized Calcium Urine WBC (Auto) U Epithel Cells (Auto) Urine Creatinine Random Vancomycin Coronavirus (PCR) Crossmatch 04/09/21 04/09/21 04/09/21 12:42 16:59 21:00 WBC RBC Hgb Hct MCH MCHC RDW Plt Count Lymph % (Auto) [place] # (Auto) Eos # (Auto) Seg Neutrophils % Lymphocytes % (Manual) Eosinophils % (Manual) Basophils % (Manual) Nucleated RBC % Seg Neutrophils # Seg Neutrophils # Man Lymphocytes # (Manual) Monocytes # (Manual) Eosinophils # (Manual) Basophils # (Manual) Percent Retic PT INR Fibrinogen D-Dimer ABG pH 7.192 L POC ABG pCO2 63.4 H POC ABG pO2 ABG pO2 ABG HCO3 ABG O2 Saturation ABG Base Excess ABG Hemoglobin 8.7 L ABG Oxyhemoglobin 92.9 L ABG Sodium 135.1 L ABG Potassium ABG Chloride ABG Glucose 208 H Oxyhemoglobin Carboxyhemoglobin Sodium Potassium Chloride Carbon Dioxide BUN Creatinine Glucose POC Glucose 198 H 218 H Hemoglobin A1c Calcium Phosphorus Magnesium AST ALT Alkaline Phosphatase Lactate Dehydrogenase C-Reactive Protein Total Protein Albumin Triglycerides Arterial Blood Glucose 208 H Arterial Blood Ionized Calcium Urine WBC (Auto) U Epithel Cells (Auto) Urine Creatinine Random Vancomycin Coronavirus (PCR) Crossmatch 04/09/21 04/10/21 04/10/21 23:31 04:45 04:45 WBC 18.0 H RBC 2.65 L Hgb 7.4 L Hct 23.3 L MCH MCHC RDW 18.5 H Plt Count Lymph % (Auto) [place] # (Auto) Eos # (Auto) Seg Neutrophils % Lymphocytes % (Manual) Eosinophils % (Manual) Basophils % (Manual) Nucleated RBC % Seg Neutrophils # Seg Neutrophils # Man Lymphocytes # (Manual) Monocytes # (Manual) Eosinophils # (Manual) Basophils # (Manual) Percent Retic PT INR Fibrinogen D-Dimer ABG pH POC ABG pCO2 POC ABG pO2 ABG pO2 ABG HCO3 ABG O2 Saturation ABG Base Excess ABG Hemoglobin ABG Oxyhemoglobin ABG Sodium ABG Potassium ABG Chloride ABG Glucose Oxyhemoglobin Carboxyhemoglobin Sodium Potassium 5.5 H Chloride Carbon Dioxide 21 L BUN 83 H Creatinine 3.4 H Glucose 211 H POC Glucose 162 H Hemoglobin A1c Calcium Phosphorus Magnesium AST ALT Alkaline Phosphatase Lactate Dehydrogenase C-Reactive Protein Total Protein Albumin Triglycerides Arterial Blood Glucose Arterial Blood Ionized Calcium Urine WBC (Auto) U Epithel Cells (Auto) Urine Creatinine Random Vancomycin Coronavirus (PCR) Crossmatch 04/10/21 04/10/21 04/10/21 05:01 11:58 17:42 WBC RBC Hgb Hct MCH MCHC RDW Plt Count Lymph % (Auto) [place] # (Auto) Eos # (Auto) Seg Neutrophils % Lymphocytes % (Manual) Eosinophils % (Manual) Basophils % (Manual) Nucleated RBC % Seg Neutrophils # Seg Neutrophils # Man Lymphocytes # (Manual) Monocytes # (Manual) Eosinophils # (Manual) Basophils # (Manual) Percent Retic PT INR Fibrinogen D-Dimer ABG pH POC ABG pCO2 POC ABG pO2 ABG pO2 ABG HCO3 ABG O2 Saturation ABG Base Excess ABG Hemoglobin ABG Oxyhemoglobin ABG Sodium ABG Potassium ABG Chloride ABG Glucose Oxyhemoglobin Carboxyhemoglobin Sodium Potassium Chloride Carbon Dioxide BUN Creatinine Glucose POC Glucose 183 H 136 H 166 H Hemoglobin A1c Calcium Phosphorus Magnesium AST ALT Alkaline Phosphatase Lactate Dehydrogenase C-Reactive Protein Total Protein Albumin Triglycerides Arterial Blood Glucose Arterial Blood Ionized Calcium Urine WBC (Auto) U Epithel Cells (Auto) Urine Creatinine Random Vancomycin Coronavirus (PCR) Crossmatch 04/11/21 04/11/21 04/11/21 00:02 04:15 04:15 WBC 16.3 H RBC 2.53 L Hgb 7.0 L Hct 22.6 L MCH MCHC RDW 18.4 H Plt Count Lymph % (Auto) [place] # (Auto) Eos # (Auto) Seg Neutrophils % Lymphocytes % (Manual) Eosinophils % (Manual) Basophils % (Manual) Nucleated RBC % Seg Neutrophils # Seg Neutrophils # Man Lymphocytes # (Manual) Monocytes # (Manual) Eosinophils # (Manual) Basophils # (Manual) Percent Retic PT INR Fibrinogen D-Dimer ABG pH POC ABG pCO2 POC ABG pO2 ABG pO2 ABG HCO3 ABG O2 Saturation ABG Base Excess ABG Hemoglobin ABG Oxyhemoglobin ABG Sodium ABG Potassium ABG Chloride ABG Glucose Oxyhemoglobin Carboxyhemoglobin Sodium Potassium Chloride Carbon Dioxide BUN 71 H Creatinine 3.1 H Glucose 183 H POC Glucose 155 H Hemoglobin A1c Calcium Phosphorus Magnesium AST ALT Alkaline Phosphatase Lactate Dehydrogenase C-Reactive Protein Total Protein Albumin Triglycerides 406 H Arterial Blood Glucose Arterial Blood Ionized Calcium Urine WBC (Auto) U Epithel Cells (Auto) Urine Creatinine Random Vancomycin Coronavirus (PCR) Crossmatch 04/11/21 04/11/21 04/11/21 05:46 11:34 11:50 WBC RBC Hgb 6.7 L Hct 20.8 L MCH MCHC RDW Plt Count Lymph % (Auto) [place] # (Auto) Eos # (Auto) Seg Neutrophils % Lymphocytes % (Manual) Eosinophils % (Manual) Basophils % (Manual) Nucleated RBC % Seg Neutrophils # Seg Neutrophils # Man Lymphocytes # (Manual) Monocytes # (Manual) Eosinophils # (Manual) Basophils # (Manual) Percent Retic PT INR Fibrinogen D-Dimer ABG pH POC ABG pCO2 POC ABG pO2 ABG pO2 ABG HCO3 ABG O2 Saturation ABG Base Excess ABG Hemoglobin ABG Oxyhemoglobin ABG Sodium ABG Potassium ABG Chloride ABG Glucose Oxyhemoglobin Carboxyhemoglobin Sodium Potassium Chloride Carbon Dioxide BUN Creatinine Glucose POC Glucose 157 H 132 H Hemoglobin A1c Calcium Phosphorus Magnesium AST ALT Alkaline Phosphatase Lactate Dehydrogenase C-Reactive Protein Total Protein Albumin Triglycerides Arterial Blood Glucose Arterial Blood Ionized Calcium Urine WBC (Auto) U Epithel Cells (Auto) Urine Creatinine Random Vancomycin Coronavirus (PCR) Crossmatch 04/11/21 04/11/21 04/11/21 13:39 17:49 17:50 WBC RBC Hgb 6.5 L Hct 21.4 L MCH MCHC RDW Plt Count Lymph % (Auto) [place] # (Auto) Eos # (Auto) Seg Neutrophils % Lymphocytes % (Manual) Eosinophils % (Manual) Basophils % (Manual) Nucleated RBC % Seg Neutrophils # Seg Neutrophils # Man Lymphocytes # (Manual) Monocytes # (Manual) Eosinophils # (Manual) Basophils # (Manual) Percent Retic PT INR Fibrinogen D-Dimer ABG pH POC ABG pCO2 POC ABG pO2 ABG pO2 ABG HCO3 ABG O2 Saturation ABG Base Excess ABG Hemoglobin ABG Oxyhemoglobin ABG Sodium ABG Potassium ABG Chloride ABG Glucose Oxyhemoglobin Carboxyhemoglobin Sodium Potassium Chloride Carbon Dioxide BUN Creatinine Glucose POC Glucose 136 H Hemoglobin A1c Calcium Phosphorus Magnesium AST ALT Alkaline Phosphatase Lactate Dehydrogenase C-Reactive Protein Total Protein Albumin Triglycerides Arterial Blood Glucose Arterial Blood Ionized Calcium Urine WBC (Auto) U Epithel Cells (Auto) Urine Creatinine Random Vancomycin Coronavirus (PCR) Crossmatch See Detail 04/12/21 04/12/21 04/12/21 00:25 00:29 02:52 WBC RBC Hgb 7.4 L Hct 23.5 L MCH MCHC RDW Plt Count Lymph % (Auto) [place] # (Auto) Eos # (Auto) Seg Neutrophils % Lymphocytes % (Manual) Eosinophils % (Manual) Basophils % (Manual) Nucleated RBC % Seg Neutrophils # Seg Neutrophils # Man Lymphocytes # (Manual) Monocytes # (Manual) Eosinophils # (Manual) Basophils # (Manual) Percent Retic PT INR Fibrinogen D-Dimer ABG pH 7.253 L POC ABG pCO2 POC ABG pO2 ABG pO2 79.6 L ABG HCO3 ABG O2 Saturation 94.1 L ABG Base Excess -3.6 L ABG Hemoglobin 8.1 L ABG Oxyhemoglobin ABG Sodium ABG Potassium ABG Chloride ABG Glucose Oxyhemoglobin 93.6 L Carboxyhemoglobin Sodium Potassium Chloride Carbon Dioxide BUN Creatinine Glucose POC Glucose 125 H Hemoglobin A1c Calcium Phosphorus Magnesium AST ALT Alkaline Phosphatase Lactate Dehydrogenase C-Reactive Protein Total Protein Albumin Triglycerides Arterial Blood Glucose Arterial Blood Ionized Calcium Urine WBC (Auto) U Epithel Cells (Auto) Urine Creatinine Random Vancomycin Coronavirus (PCR) Crossmatch 04/12/21 04/12/21 04/12/21 04:30 04:30 05:41 WBC 17.5 H RBC 2.68 L Hgb 7.6 L Hct 24.0 L MCH MCHC RDW 18.0 H Plt Count Lymph % (Auto) [place] # (Auto) Eos # (Auto) Seg Neutrophils % Lymphocytes % (Manual) Eosinophils % (Manual) Basophils % (Manual) Nucleated RBC % Seg Neutrophils # Seg Neutrophils # Man Lymphocytes # (Manual) Monocytes # (Manual) Eosinophils # (Manual) Basophils # (Manual) Percent Retic PT INR Fibrinogen D-Dimer ABG pH POC ABG pCO2 POC ABG pO2 ABG pO2 ABG HCO3 ABG O2 Saturation ABG Base Excess ABG Hemoglobin ABG Oxyhemoglobin ABG Sodium ABG Potassium ABG Chloride ABG Glucose Oxyhemoglobin Carboxyhemoglobin Sodium Potassium Chloride Carbon Dioxide BUN 87 H Creatinine 4.5 H Glucose 136 H POC Glucose 115 H Hemoglobin A1c Calcium Phosphorus 6.50 H Magnesium AST ALT Alkaline Phosphatase Lactate Dehydrogenase C-Reactive Protein Total Protein Albumin Triglycerides Arterial Blood Glucose Arterial Blood Ionized Calcium Urine WBC (Auto) U Epithel Cells (Auto) Urine Creatinine Random Vancomycin Coronavirus (PCR) Crossmatch 04/12/21 04/12/21 04/13/21 11:57 17:19 00:24 WBC RBC Hgb Hct MCH MCHC RDW Plt Count Lymph % (Auto) [place] # (Auto) Eos # (Auto) Seg Neutrophils % Lymphocytes % (Manual) Eosinophils % (Manual) Basophils % (Manual) Nucleated RBC % Seg Neutrophils # Seg Neutrophils # Man Lymphocytes # (Manual) Monocytes # (Manual) Eosinophils # (Manual) Basophils # (Manual) Percent Retic PT INR Fibrinogen D-Dimer ABG pH POC ABG pCO2 POC ABG pO2 ABG pO2 ABG HCO3 ABG O2 Saturation ABG Base Excess ABG Hemoglobin ABG Oxyhemoglobin ABG Sodium ABG Potassium ABG Chloride ABG Glucose Oxyhemoglobin Carboxyhemoglobin Sodium Potassium Chloride Carbon Dioxide BUN Creatinine Glucose POC Glucose 137 H 177 H 188 H Hemoglobin A1c Calcium Phosphorus Magnesium AST ALT Alkaline Phosphatase Lactate Dehydrogenase C-Reactive Protein Total Protein Albumin Triglycerides Arterial Blood Glucose Arterial Blood Ionized Calcium Urine WBC (Auto) U Epithel Cells (Auto) Urine Creatinine Random Vancomycin Coronavirus (PCR) Crossmatch 04/13/21 04/13/21 04/13/21 03:52 04:44 04:44 WBC 13.1 H RBC 2.57 L Hgb 7.3 L Hct 23.2 L MCH MCHC RDW 17.6 H Plt Count 73 L Lymph % (Auto) [place] # (Auto) Eos # (Auto) Seg Neutrophils % Lymphocytes % (Manual) Eosinophils % (Manual) Basophils % (Manual) Nucleated RBC % Seg Neutrophils # Seg Neutrophils # Man Lymphocytes # (Manual) Monocytes # (Manual) Eosinophils # (Manual) Basophils # (Manual) Percent Retic PT 16.0 H INR 1.16 H Fibrinogen D-Dimer ABG pH 7.195 L* POC ABG pCO2 POC ABG pO2 ABG pO2 98.9 H ABG HCO3 ABG O2 Saturation ABG Base Excess -2.9 L ABG Hemoglobin 7.4 L ABG Oxyhemoglobin ABG Sodium ABG Potassium ABG Chloride ABG Glucose Oxyhemoglobin 94.3 L Carboxyhemoglobin Sodium Potassium Chloride Carbon Dioxide BUN Creatinine Glucose POC Glucose Hemoglobin A1c Calcium Phosphorus Magnesium AST ALT Alkaline Phosphatase Lactate Dehydrogenase C-Reactive Protein Total Protein Albumin Triglycerides Arterial Blood Glucose Arterial Blood Ionized Calcium Urine WBC (Auto) U Epithel Cells (Auto) Urine Creatinine Random Vancomycin Coronavirus (PCR) Crossmatch 04/13/21 04/13/21 04/13/21 04:44 05:26 11:32 WBC RBC Hgb Hct MCH MCHC RDW Plt Count Lymph % (Auto) [place] # (Auto) Eos # (Auto) Seg Neutrophils % Lymphocytes % (Manual) Eosinophils % (Manual) Basophils % (Manual) Nucleated RBC % Seg Neutrophils # Seg Neutrophils # Man Lymphocytes # (Manual) Monocytes # (Manual) Eosinophils # (Manual) Basophils # (Manual) Percent Retic PT INR Fibrinogen D-Dimer ABG pH POC ABG pCO2 POC ABG pO2 ABG pO2 ABG HCO3 ABG O2 Saturation ABG Base Excess ABG Hemoglobin ABG Oxyhemoglobin ABG Sodium ABG Potassium ABG Chloride ABG Glucose Oxyhemoglobin Carboxyhemoglobin Sodium Potassium Chloride Carbon Dioxide BUN 75 H Creatinine 3.8 H Glucose 183 H POC Glucose 163 H 169 H Hemoglobin A1c Calcium Phosphorus 6.80 H Magnesium AST ALT Alkaline Phosphatase Lactate Dehydrogenase C-Reactive Protein Total Protein Albumin Triglycerides Arterial Blood Glucose Arterial Blood Ionized Calcium Urine WBC (Auto) U Epithel Cells (Auto) Urine Creatinine Random Vancomycin Coronavirus (PCR) Crossmatch 04/13/21 04/13/21 04/13/21 17:28 21:00 23:28 WBC RBC Hgb Hct MCH MCHC RDW Plt Count Lymph % (Auto) [place] # (Auto) Eos # (Auto) Seg Neutrophils % Lymphocytes % (Manual) Eosinophils % (Manual) Basophils % (Manual) Nucleated RBC % Seg Neutrophils # Seg Neutrophils # Man Lymphocytes # (Manual) Monocytes # (Manual) Eosinophils # (Manual) Basophils # (Manual) Percent Retic PT INR Fibrinogen D-Dimer ABG pH POC ABG pCO2 48.6 H POC ABG pO2 ABG pO2 ABG HCO3 ABG O2 Saturation ABG Base Excess ABG Hemoglobin 8.3 L ABG Oxyhemoglobin ABG Sodium 134.6 L ABG Potassium ABG Chloride ABG Glucose 243 H Oxyhemoglobin Carboxyhemoglobin 0.4 L Sodium Potassium Chloride Carbon Dioxide BUN Creatinine Glucose POC Glucose 174 H 207 H Hemoglobin A1c Calcium Phosphorus Magnesium AST ALT Alkaline Phosphatase Lactate Dehydrogenase C-Reactive Protein Total Protein Albumin Triglycerides Arterial Blood Glucose 243 H Arterial Blood Ionized Calcium Urine WBC (Auto) U Epithel Cells (Auto) Urine Creatinine Random Vancomycin Coronavirus (PCR) Crossmatch 04/14/21 04/14/21 04/14/21 04:43 04:43 05:28 WBC 11.8 H RBC 2.58 L Hgb 7.5 L Hct 23.4 L MCH MCHC RDW 17.1 H Plt Count 45 L Lymph % (Auto) [place] # (Auto) Eos # (Auto) Seg Neutrophils % Lymphocytes % (Manual) Eosinophils % (Manual) Basophils % (Manual) Nucleated RBC % Seg Neutrophils # Seg Neutrophils # Man Lymphocytes # (Manual) Monocytes # (Manual) Eosinophils # (Manual) Basophils # (Manual) Percent Retic PT INR Fibrinogen D-Dimer ABG pH POC ABG pCO2 POC ABG pO2 ABG pO2 ABG HCO3 ABG O2 Saturation ABG Base Excess ABG Hemoglobin ABG Oxyhemoglobin ABG Sodium ABG Potassium ABG Chloride ABG Glucose Oxyhemoglobin Carboxyhemoglobin Sodium Potassium Chloride Carbon Dioxide BUN 74 H Creatinine 3.1 H Glucose 220 H POC Glucose 200 H Hemoglobin A1c Calcium Phosphorus Magnesium AST ALT Alkaline Phosphatase Lactate Dehydrogenase C-Reactive Protein Total Protein Albumin Triglycerides Arterial Blood Glucose Arterial Blood Ionized Calcium Urine WBC (Auto) U Epithel Cells (Auto) Urine Creatinine Random Vancomycin Coronavirus (PCR) Crossmatch 04/14/21 04/14/21 04/14/21 11:10 16:20 21:00 WBC RBC Hgb Hct MCH MCHC RDW Plt Count Lymph % (Auto) [place] # (Auto) Eos # (Auto) Seg Neutrophils % Lymphocytes % (Manual) Eosinophils % (Manual) Basophils % (Manual) Nucleated RBC % Seg Neutrophils # Seg Neutrophils # Man Lymphocytes # (Manual) Monocytes # (Manual) Eosinophils # (Manual) Basophils # (Manual) Percent Retic PT INR Fibrinogen D-Dimer ABG pH 7.207 L POC ABG pCO2 67.6 H POC ABG pO2 143.7 H ABG pO2 ABG HCO3 ABG O2 Saturation ABG Base Excess ABG Hemoglobin 7.6 L ABG Oxyhemoglobin ABG Sodium 133.8 L ABG Potassium ABG Chloride ABG Glucose 158 H Oxyhemoglobin Carboxyhemoglobin Sodium Potassium Chloride Carbon Dioxide BUN Creatinine Glucose POC Glucose 160 H 168 H Hemoglobin A1c Calcium Phosphorus Magnesium AST ALT Alkaline Phosphatase Lactate Dehydrogenase C-Reactive Protein Total Protein Albumin Triglycerides Arterial Blood Glucose 158 H Arterial Blood Ionized Calcium Urine WBC (Auto) U Epithel Cells (Auto) Urine Creatinine Random Vancomycin Coronavirus (PCR) Crossmatch 04/14/21 04/15/21 04/15/21 23:53 Unknown Unknown WBC 11.8 H RBC 2.41 L Hgb 7.1 L Hct 22.4 L MCH MCHC RDW 17.0 H Plt Count 38 L Lymph % (Auto) [place] # (Auto) Eos # (Auto) Seg Neutrophils % Lymphocytes % (Manual) Eosinophils % (Manual) Basophils % (Manual) Nucleated RBC % Seg Neutrophils # Seg Neutrophils # Man Lymphocytes # (Manual) Monocytes # (Manual) Eosinophils # (Manual) Basophils # (Manual) Percent Retic PT 16.3 H INR 1.18 H Fibrinogen D-Dimer ABG pH POC ABG pCO2 POC ABG pO2 ABG pO2 ABG HCO3 ABG O2 Saturation ABG Base Excess ABG Hemoglobin ABG Oxyhemoglobin ABG Sodium ABG Potassium ABG Chloride ABG Glucose Oxyhemoglobin Carboxyhemoglobin Sodium Potassium Chloride Carbon Dioxide BUN Creatinine Glucose POC Glucose 147 H Hemoglobin A1c Calcium Phosphorus Magnesium AST ALT Alkaline Phosphatase Lactate Dehydrogenase C-Reactive Protein Total Protein Albumin Triglycerides Arterial Blood Glucose Arterial Blood Ionized Calcium Urine WBC (Auto) U Epithel Cells (Auto) Urine Creatinine Random Vancomycin Coronavirus (PCR) Crossmatch 04/15/21 Unknown WBC RBC Hgb Hct MCH MCHC RDW Plt Count Lymph % (Auto) [place] # (Auto) Eos # (Auto) Seg Neutrophils % Lymphocytes % (Manual) Eosinophils % (Manual) Basophils % (Manual) Nucleated RBC % Seg Neutrophils # Seg Neutrophils # Man Lymphocytes # (Manual) Monocytes # (Manual) Eosinophils # (Manual) Basophils # (Manual) Percent Retic PT INR Fibrinogen D-Dimer ABG pH POC ABG pCO2 POC ABG pO2 ABG pO2 ABG HCO3 ABG O2 Saturation ABG Base Excess ABG Hemoglobin ABG Oxyhemoglobin ABG Sodium ABG Potassium ABG Chloride ABG Glucose Oxyhemoglobin Carboxyhemoglobin Sodium Potassium Chloride Carbon Dioxide BUN 67 H Creatinine 3.3 H Glucose 155 H POC Glucose Hemoglobin A1c Calcium 8.3 L Phosphorus 5.70 H Magnesium AST 85 H ALT 63 H Alkaline Phosphatase Lactate Dehydrogenase C-Reactive Protein Total Protein Albumin 2.4 L Triglycerides Arterial Blood Glucose Arterial Blood Ionized Calcium Urine WBC (Auto) U Epithel Cells (Auto) Urine Creatinine Random Vancomycin Coronavirus (PCR) Crossmatch Chest x-ray: image reviewed (over-penetrated film but stable to mildly improved infiltrates) Allied health notes reviewed: nursing
--- NOTE | 2021-04-15 11:24 | Hem/Onc Progress Note ---
Subjective Date of service: 04/15/21 Interval history: Heme progress note cpt: [id number] Dx: thrombocytopenia 31yo obese AA woman 300 lbs, with covid infection and ARF requiring hD s/p plasma exchange x 2 days, has had hypotension, on pressors h/o asthma and intubation 2018 h/o crohns disease per notes S/p ETT exchange and bronchoscopy 04/11 due to bloody secretions Family meeting 04/14, plan for possible peg/trach next week DATA REVIEWED BELOW plts 38 fib 400 Hct 22.4 IMP: Continues with severe anemia high WBC is "reactive"-not heme malignancy Noted to have thrombocytopenia, could be related to covid infection and/or liver dysfunction HIT test negative REC/PLAN: Transfuse 1 unit RBC today Transfuse 1 dose of platelets whenever <20 Transfuse 1 unit RBC whenever hct<23 Family meeting with palliative care appropriate Laboratory Last Values WBC 11.8 K/mm3 (4.5-11.0) H 04/15/21 Unknown Hgb 7.1 gm/dl (10.1-14.3) L 04/15/21 Unknown Hct 22.4 % (30.3-42.9) L 04/15/21 Unknown Plt Count 38 K/mm3 (140-440) L 04/15/21 Unknown PT 16.3 Sec. (12.2-14.9) H 04/15/21 Unknown INR 1.18 (0.87-1.13) H 04/15/21 Unknown APTT 28.9 Sec. (24.2-36.6) 04/04/21 07:55 Fibrinogen 400 mg/dl (211-480) 04/14/21 09:45 D-Dimer 2696.79 ng/mlDDU (0-234) H 04/08/21 04:40 Sodium 137 mmol/L (137-145) 04/15/21 Unknown Potassium 4.3 mmol/L (3.6-5.0) 04/15/21 Unknown Chloride 98.5 mmol/L (98-107) 04/15/21 Unknown Carbon Dioxide 24 mmol/L (22-30) 04/15/21 Unknown Anion Gap 19 mmol/L 04/15/21 Unknown BUN 67 mg/dL (7-17) H 04/15/21 Unknown Creatinine 3.3 mg/dL (0.6-1.2) H 04/15/21 Unknown AST 85 units/L (5-40) H 04/15/21 Unknown ALT 63 units/L (7-56) H 04/15/21 Unknown Alkaline Phosphatase 94 units/L (35-129) 04/15/21 Unknown Lactate Dehydrogenase 394 units/L (91-180) H 04/05/21 05:20 C-Reactive Protein 26.10 mg/dL (0.00-1.30) H 04/08/21 04:00 Antibody Screen Negative 04/11/21 13:39 Direct Antiglob Test Negative 03/31/21 23:18 NIKOLE, Poly Interpret Negative 03/31/21 23:18 Crossmatch See Detail 04/11/21 13:39 Objective - Constitutional Vitals: Last Vital Signs Temp 102.0 F H 04/15/21 07:41 Pulse 135 H 04/15/21 09:46 Resp 26 H 04/15/21 09:46 BP 140/76 04/15/21 09:46 Pulse Ox 97 04/15/21 09:46 - Labs Lab Results: Laboratory Results - last 24 hr 04/11/21 04/14/21 04/14/21 13:39 05:28 16:20 WBC RBC Hgb Hct MCV MCH MCHC RDW Plt Count PT INR ABG pH POC ABG pCO2 POC ABG pO2 POC ABG HCO3 ABG O2 Saturation POC ABG Base Excess ABG Hemoglobin ABG Oxyhemoglobin ABG Methemoglobin ABG Sodium ABG Potassium ABG Chloride ABG Glucose Carboxyhemoglobin FiO2 % Sodium Potassium Chloride Carbon Dioxide Anion Gap BUN Creatinine Estimated GFR BUN/Creatinine Ratio Glucose POC Glucose 200 H 168 H Calcium Phosphorus Magnesium Total Bilirubin AST ALT Alkaline Phosphatase Total Protein Albumin Albumin/Globulin Ratio Arterial Blood Glucose Arterial Blood Ionized Calcium Random Vancomycin Blood Type O POSITIVE Antibody Screen Negative Crossmatch See Detail 04/14/21 04/14/21 04/15/21 21:00 23:53 07:05 WBC RBC Hgb Hct MCV MCH MCHC RDW Plt Count PT INR ABG pH 7.207 L POC ABG pCO2 67.6 H POC ABG pO2 143.7 H POC ABG HCO3 26.2 ABG O2 Saturation 98.8 POC ABG Base Excess -1.9 ABG Hemoglobin 7.6 L ABG Oxyhemoglobin 97.6 ABG Methemoglobin 0.1 ABG Sodium 133.8 L ABG Potassium 4.0 ABG Chloride 101.0 ABG Glucose 158 H Carboxyhemoglobin 1.1 FiO2 % 80.0 Sodium Potassium Chloride Carbon Dioxide Anion Gap BUN Creatinine Estimated GFR BUN/Creatinine Ratio Glucose POC Glucose 147 H Calcium Phosphorus Magnesium Total Bilirubin AST ALT Alkaline Phosphatase Total Protein Albumin Albumin/Globulin Ratio Arterial Blood Glucose 158 H Arterial Blood Ionized Calcium 4.7 Random Vancomycin 11.9 Blood Type Antibody Screen Crossmatch 04/15/21 04/15/21 04/15/21 11:10 Unknown Unknown WBC 11.8 H RBC 2.41 L Hgb 7.1 L Hct 22.4 L MCV 93 MCH 29 MCHC 32 RDW 17.0 H Plt Count 38 L PT 16.3 H INR 1.18 H ABG pH POC ABG pCO2 POC ABG pO2 POC ABG HCO3 ABG O2 Saturation POC ABG Base Excess ABG Hemoglobin ABG Oxyhemoglobin ABG Methemoglobin ABG Sodium ABG Potassium ABG Chloride ABG Glucose Carboxyhemoglobin FiO2 % Sodium Potassium Chloride Carbon Dioxide Anion Gap BUN Creatinine Estimated GFR BUN/Creatinine Ratio Glucose POC Glucose 161 H Calcium Phosphorus Magnesium Total Bilirubin AST ALT Alkaline Phosphatase Total Protein Albumin Albumin/Globulin Ratio Arterial Blood Glucose Arterial Blood Ionized Calcium Random Vancomycin Blood Type Antibody Screen Crossmatch 04/15/21 Unknown WBC RBC Hgb Hct MCV MCH MCHC RDW Plt Count PT INR ABG pH POC ABG pCO2 POC ABG pO2 POC ABG HCO3 ABG O2 Saturation POC ABG Base Excess ABG Hemoglobin ABG Oxyhemoglobin ABG Methemoglobin ABG Sodium ABG Potassium ABG Chloride ABG Glucose Carboxyhemoglobin FiO2 % Sodium 137 Potassium 4.3 Chloride 98.5 Carbon Dioxide 24 Anion Gap 19 BUN 67 H Creatinine 3.3 H Estimated GFR 20 BUN/Creatinine Ratio 20 Glucose 155 H POC Glucose Calcium 8.3 L Phosphorus 5.70 H Magnesium 1.90 Total Bilirubin 0.40 AST 85 H ALT 63 H Alkaline Phosphatase 94 Total Protein 6.3 Albumin 2.4 L Albumin/Globulin Ratio 0.6 Arterial Blood Glucose Arterial Blood Ionized Calcium Random Vancomycin Blood Type Antibody Screen Crossmatch Medications & Allergies - Medications Allergies/Adverse Reactions: Allergies oxycodone HCl [From Percocet] Allergy (Severe, Verified 03/30/21 14:01) Swelling cefepime Allergy (Verified 04/06/21 13:38) Rash hydrocodone bitartrate [From Vicodin] Allergy (Verified 03/31/21 08:20) Swelling ALLERGY TO TYLENOL VS OXYCODONE ACTIVE ORDER REMOVED FROM MAR SINCE UNABLE TO CONFIRM WITH FAMILY Home Medications: Home Medications Medication Instructions Recorded Confirmed Last Taken Type Chlorhexidine Mouthwash [Peridex] 15 ml MM BID #1 bottle 10/11/20 03/13/21 Unknown Rx Clindamycin [Clindamycin CAP] 300 mg PO Q8H #21 cap 10/11/20 03/13/21 Unknown Rx Naproxen 500 mg PO Q12H PRN #12 tablet 10/11/20 03/13/21 Unknown Rx Butalb/Acetamin/Caff 50-325-40 1 - 2 tab PO Q6HR PRN #15 tab 12/05/20 03/13/21 Unknown Rx [Fioricet 50-325-40] Famotidine [Pepcid] 20 mg PO BID #30 tablet 12/05/20 03/13/21 Unknown Rx Ketorolac [Toradol] 10 mg PO Q8H PRN #20 tablet 12/05/20 03/13/21 Unknown Rx Ondansetron [Zofran Odt] 4 mg PO Q6HR PRN #20 tab.rapdis 12/05/20 03/13/21 Unknown Rx Albuterol Sulfate [Proair 90 mcg IH Q4HR PRN #2 [email or web address] 01/01/21 03/13/21 Unknown Rx Respiclick] Mupirocin [Bactroban 2% OINT] 1 applic TP BID 7 Days #1 tube 01/01/21 03/13/21 Unknown Rx Triamcinolone Aceton 0.1% (Nf) 1 applic TP BID 14 Days #1 tube 01/01/21 03/13/21 Unknown Rx [Kenalog (NF)] predniSONE [Deltasone] 40 mg PO QDAY #8 tab 01/01/21 03/13/21 Unknown Rx Active Medications: Generic Name Dose Route Start Last Admin Trade Name Freq PRN Reason Stop Dose Admin Acetaminophen 650 mg 03/31/21 12:41 04/15/21 05:55 Acetaminophen 325 Mg/10.15 Ml Oral Liqd Unit Dose FEEDTUBE 650 mg Q6H PRN Administration TEMP >/=100.4 Albumin Human 25 gm 04/01/21 08:19 04/01/21 16:23 Albumin Human 25% (25 Gm/100 Ml) Inj IV 25 gm KARLOS PRN Administration Hypotension Albuterol 2.5 mg 03/19/21 00:53 Albuterol 2.5 Mg/3 Ml Nebu IH Q4HRT PRN Shortness Of Breath Albuterol/Ipratropium 1 ampul 03/19/21 08:00 04/15/21 07:39 Ipratropium/Albuterol Sulfate 3 Ml Ampul.Neb IH 1 ampul Q6HRT INESSA Administration Lipase/Protease/Amylase 1 each 04/09/21 17:17 Lipase 10,500/Protease 25,000/Amylase 43,750 (Units) Cap FEEDTUBE PRN PRN For Clogged Feeding Tube Calcium Acetate 1,334 mg 04/03/21 20:00 04/15/21 07:54 Calcium Acetate 667 Mg Cap FEEDTUBE 1,334 mg TID INESSA Administration Dextrose 50 ml 03/14/21 11:02 03/15/21 11:40 Dextrose 50% In Water (25gm) 50 Ml Syringe IV 50 ml Q30MIN PRN Administration Hypoglycemia Protocol Famotidine 10 mg 03/17/21 22:00 04/15/21 09:26 Famotidine 10 Mg Tab PO 10 mg BID INESSA Administration Fentanyl 50 mcg 03/15/21 10:43 04/05/21 21:32 Fentanyl 100 Mcg/2 Ml Inj IV 50 mcg Q10MIN PRN Administration ANALGESIA Hydrocortisone Sodium Succinate 100 mg 04/10/21 00:00 04/15/21 07:54 Hydrocortisone Sod Succ 100 Mg/2 Ml Vial IV 100 mg Q8H INESSA Administration Hydrophilic Ointment 1 applic 03/14/21 17:50 Lip Therapy Vaseline TP Q2HR PRN Dry Lips Sodium Chloride 500 mls @ 1 mls/hr 03/16/21 17:19 Nacl 0.9% 500 Ml IV DIRECT PRN ARTERIAL LINE FLUSH Midazolam HCl 100 mg/ Sodium 100 mls @ 1 mls/hr 03/30/21 15:00 04/15/21 09:27 Chloride IV 4 mg/hr TITR INESSA 4 mls/hr Administration Protocol 1 MG/HR Vasopressin 20 unit/ Sodium 101 mls @ 9.09 mls/hr 03/30/21 20:00 04/15/21 07:13 Chloride IV 0.03 units/min TITR INESSA 9.09 mls/hr Infusion 0.03 UNITS/MIN Phenylephrine HCl 100 mg/ 100 mls @ 3 mls/hr 03/31/21 04:00 04/06/21 07:58 Sodium Chloride IV 0 mcg/min TITR INESSA 0 mls/hr Titration Protocol 50 MCG/MIN Sodium Chloride 100 mls @ 999 mls/hr 04/01/21 08:19 Nacl 0.9% IV KARLOS PRN Hypotension Propofol 1,000 mg in 100 mls @ 4.26 mls/hr 04/07/21 13:00 04/12/21 12:52 Diprivan 10 Mg/Ml IV 0 mcg/kg/min TITR INESSA 0 mls/hr Titration Protocol 5 MCG/KG/MIN Micafungin Sodium 100 mg/ 100 mls @ 100 mls/hr 04/09/21 17:00 04/14/21 17:40 Sodium Chloride IV 100 mls/hr Q24H INESSA Administration Protocol Norepinephrine 8 mg/ Sodium 8 mg in 258 mls @ 3.87 mls/hr 04/12/21 04:00 04/15/21 08:20 Chloride IV 0 mcg/min TITRATE INESSA 0 mls/hr Titration Protocol 2 MCG/MIN MEROPENEM/NS 1 GRAM/100 ML 1 gram in 100 mls @ 100 mls/hr 04/12/21 22:00 04/14/21 22:05 Merrem/Ns 1 Gram/100 Ml IV 100 mls/hr Q24H INESSA Administration Protocol Sodium Chloride 1,000 mls @ 1 mls/hr 04/14/21 16:45 04/14/21 16:57 Nacl 0.9% 1000 Ml IV 1 mls/hr DIRECT INESSA Administration Insulin Human Lispro 0 unit 03/14/21 12:00 04/15/21 06:07 Insulin Lispro 100 Unit/Ml SUB-Q Not Given Q6HR INESSA Protocol Lorazepam 1 mg 03/13/21 19:40 03/30/21 19:58 Lorazepam 2 Mg/Ml Vial IV 1 mg Q4H PRN Administration Anxiety Multi-Ingred Cream/Lotion/Oil/Oint 1 applic 03/14/21 17:50 04/10/21 22:03 Mineral Oil/Petrolatum, White Ophth Oint 3.5 Gm OU 1 applic Q4HR PRN Administration Dry Eye(s) Ondansetron HCl 4 mg 03/13/21 19:30 03/21/21 12:05 Ondansetron 4 Mg/2 Ml Inj IV 4 mg Q8H PRN Administration Nausea And Vomiting Quetiapine Fumarate 300 mg 04/06/21 22:00 04/15/21 09:27 Quetiapine 100 Mg Tab PO 300 mg BID INESSA Administration Senna/Docusate Sodium 1 tab 03/14/21 22:00 04/15/21 09:26 Sennosides/Docusate Sodium 8.6/50 Mg Tab FEEDTUBE 1 tab BID INESSA Administration Simple Syrup 15 ml 04/09/21 17:17 Simple Syrup 15 Ml FEEDTUBE PRN PRN Hypoglycemia Simple Syrup 30 ml 04/09/21 17:17 Simple Syrup 15 Ml FEEDTUBE PRN PRN Hypoglycemia Sodium Bicarbonate 325 mg 04/09/21 17:17 Sodium Bicarbonate 325 Mg Tab FEEDTUBE PRN PRN For Clogged Feeding Tube Sodium Chloride 10 ml 03/13/21 22:00 04/15/21 09:27 Sodium Chloride 0.9% 10 Ml Flush Syringe IV 10 ml BID INESSA Administration Sodium Chloride 10 ml 03/13/21 19:30 Sodium Chloride 0.9% 10 Ml Flush Syringe IV PRN PRN LINE FLUSH
[2021-04-15] MEDS ORDERED: SODIUM CHLORIDE 0.9% 500 ML 500 ML IV SCH ×2 (12:00→16:42)
--- NOTE | 2021-04-15 12:12 | Progress Note ---
<CRISTY PASCUAL - Last Filed: 04/15/21 12:32> Assessment and Plan Assessment and plan: This is a 31-year-old female with asthma, morbid obesity and Crohn's disease admitted for COVID-19 pneumonia and and acute renal failure Neuro: Sedated -Intubated and sedated with propofol, fentanyl, Versed -sedation to vent synchrony -Seroquel -As needed ECG for QTC monitoring -Daily SAT/SBT when appropriate -Maintain sleep-wake cycle -Avoid delirium -CT head with no acute abnormality CV: Tachycardia, s/p hypertension now with hypotension -ST on the monitor -Vasopressor support with levophed, vasopressin -Maintain MAP above 65 -Blood pressure monitoring via keesha Respiratory: Acute hypoxic respiratory failure, asthma exacerbation, COVID-19 pneumonia, ARDS, RUL PNA, bronchospasm (resolved) -Patient was intubated on 03/14 for respiratory distress and inability to protect airway with her ETT exchange on 04/11 -plan to consult surgery next week for trach/peg -Intubated with 7.50 ETT at 24 at the lip -A.m. vent settings: AC/PCV rate 30, FiO2 60%, PEEP 10, drive pressure 35 -See RT notes for titration -ABGs per CCM -VAP bundle -SPO2 monitoring -CCM/pulmonary consulted, appreciate recommendations -S/p BiPAP therapy -S/p Bronc on 04/11 which showed alveolar hemorrhage GI: transaminitis, h/o MO and Crohn's disease -Nutrition consulted, appreciate recommendations -Tube feeding: Nepro -Free water 100 mL every 4 hours -BR: [place] -PPI -24 hours +3006 ml -HD removal of 1 L yesterday : Acute kidney injury likely secondary to Acute tubular necrosis which progressed to HD -Nephrology consulted, appreciate recommendations -Vas-Cath placed 03/15 -HD initiated 03/15 -Daily weights -Strict intake and output -Avoid nephrotoxic medications -Renally dose medications -Trend BMP -Intervene for electrolytes as needed -HD per nephrology -s/p Bicarb gtt ID: COVID-19 pneumonia, leukocytosis, Staph aureus in tracheal aspirate, Conjunctival hemorrhage, ?HUS vs drug reaction -Infectious disease consulted, appreciate recommendations -03/14 COVID-19 PCR (+), 04/10 COVID PCR (-) -1 g of methylprednisone for 3 days (03/31 through 04/02 with taper) -Restarted on stress dose steroids on 04/10 -started taper today (decrease by 25mg) -s/p Actemra per ID -Per ID patient is on a candidate for remdesivir due to renal failure -Patient received 1 dose of remdesivir on 03/14 -Prophylactic anticoagulation based on D-dimer -s/p Cipro/Dex drops for 5 days -Abx per ID: Levaquin, Merrem, micafungin -Trend COVID-19 inflammatory markers -Isolation/droplet precautions for 21 days -Vitamin C/vitamin D/zinc -follow culture data -Monitor WBC and fever curve -s/p plasmapheresis x2 (04/01-04/02) -LDH 509, Eliezer fibrinogen 491 -s/p Artic sun for temp regulation -given 1g solumedoral x1 for possible anaphylaxis reaction post contrast -benadryl q6 Heme: Leukocytosis, elevated D-dimer -Trend CBC -Transfuse hemoglobin less than 7 -Eliquis restarted 03/29 -SCDs to bilateral lower extremity while in bed -BLE duplex US shows no DVT -HIT negative Endo: Hyperglycemia -Hemoglobin A1c 6.3 -SSI -Accu-Cheks every 6 -Avoid hypoglycemia The high probability of a clinically significant, sudden or life threatening deterioration of the [multiple] system(s) required my full and direct attention, intervention and personal management. The aggregate critical care time was [60] minutes. This time is in addition to time spent performing reported procedures but includes the following: [x] Data Review and interpretation [x] Patient assessment and monitoring of vital signs [x] Documentation [x] Medication orders and management Disposition Plan: icu Total Time Spent with Patient (Minutes): 60 History Interval history: This is a 31-year-old female with asthma, history of prior intubation x1 in 02/2019, morbid obesity and Crohn's disease who presented to the emergency department on 03/13 with complaints of severe wheezing and shortness of breath over the past 4 days which is not relieved by home nebulizer treatments or r escue inhalers, cough without fever and no loss of sense of taste or smell. Patient is currently on vaccinated for COVID-19. In the emergency department patient was placed on BiPAP given steroids magnesium Solu-Medrol with improvement, CXR shows a streak of possible pneumonia. Patient was made a COVID-19 PUI and admitted to the hospital service. Patient was initially admitted to IMCU on BiPAP and was subsequently intubated due to severe respiratory distress and inability to protect her airway. Patient was admitted with acute hypoxic respiratory failure, acute asthma exacerbation, right upper lobe pneumonia, and as a COVID-19 PUI. Hospital Course to Date: 03/14/21- Patient is s/p intubation from this morning, sedated on propofol and fentanyl RASS -3 to -4. ETT above the clavicles advanced by 2cc. Continue nebs and IV steroids per [facility]. COVID swab pending. Hyperkalemia improved, X1 dose of kayaxalate ordered. Low BP and low urine output this am, fluid bolus challenge, 500cc of NS bolus given. Continue to monitor electrolytes and renal function, repeat BMP this afternoon. 03/15: Patient's renal function noted to be significantly worse today, patient was hyperkalemic and this was medically treated. Patient initiated on hemodialysis today. infectious disease was consulted today. 03/16: No acute events reported overnight, patient received hemodialysis yesterday. Patient is currently on propofol and fentanyl. 03/17: Patient received hemodialysis today, patient is slightly acidotic on ABG however [facility] is allowing for permissive hypercapnia, tracheal aspirate with Staph aureus and ID is aware. 03/18: Patient is having high residuals today and Reglan was started, patient w ill receive HD daily per nephrology, correct her change in FiO2 as tolerated. 03/19: HD per nephrology today, antibiotics changed to cefazolin. Patient did not tolerate tube feedings as she had high residuals this morning and they were turned off. Not restarted yet. Updated family at bedside today 03/20: HD today, ddimer noted to be >1000, Tolerating trickle TF. Stat BLE dopplar US 03/21: Patient is not tolerating TF, CXR shows worsening infiltrates, [facility] made changes to vent, TF on hold and started on IVF. 03/22/21- Patient remains intubated and on sedation. Persistent vomiting, TF held overnight, no documented BM, on reglan BR added, Shaun citarte & supp. HD today. Plan to restart TF at 10ml/hr, will reevaluate in the am. Persistent thrombocytopenia, Hep on hold, HIT panel ordered, PO eliquis initiated. 03/23/21- Patient remains on the vent and sedated on propofol and fentanyl RASS - 2 to -3. Possible SAT today as tolerated. Patient tolerated trickle feeds overnight, plan to advance TF by 10cc Q8 to 12hrs. Continue current BR and continue reglan for now. Slightr worsening in acidosis from this am, d/w [facility] vent setting adjusted, will repeat ABG at 9pm. 03/24/21- Patient is on the vent and sedated, on fentanyl and propfol. Bilateral subconjunctival hemorrhage with periorbital edema noted this am, pupils are round and reactive, will Cipro/Dex [id number]. Worsening of kidney function from today's labs, plan for HD per Nephro. 03/25/21- Patient remains intubated and on sedatin, RASS 0 to -1, no longer on pressors. Sudden drop in H&H this am, bilateral subconjunctival hemorrhage with no sig change, no signs of any active bleeding. Patient appears neurologically intact, following commands, pupils are round and reactive with + gag and cough, moved all extremities. D/w [facility] patient is too unstable for CT at this time. Eliquis D/Devaughn, 1unit of PRBC ordered. Will continue to trend CBC. Plan for another section of HD today 03/26/21- Patient remains on the vent and sedated. VENICE reported from overnight. Plan for HD again today. H&H back up and stable, no AC at this time, SCDs for VTE phro. D/w [facility] patient is still too unstable for CT scan, will continue neuro exam and will continue to monitor H&H. 03/27/21- VENICE overnight. remains on the vent and sedated. Red localized rashes noted in patient upper chest and face, will r/o allergic reaction,CBC with auto diff and urine eosinophils ordered. Plan for HD today per Nephro. 03/28/21- Patient remains on the vent and sedated. Persistent fevers overnight unrelieved with antipyretic, currently on a cooling blanket. Back on pressors for hypotension, patient already on IV abx, last blood cultureX2 and sputum culture from 03/23 were negative. Continue IV abx, will reculture patient, orders placed for B.culture and sputum culture. ID is also on consult. will continue F/u on culture and continue to monitor BMP and CBC. 03/29: Patient restarted on prednisone given splotchy rash, will resume apixaban for VTE prophylaxis and repeat ABG at 9 PM. Remains with leukocytosis, elevated BUN/creatinine, elevated triglycerides and on Levophed 03/30: HD today, rash is still present and started on IV steroids. plt is low today but will continue to monitor. CCM made changes to vent-> decrease in MV. ABG in the pm and possible punch biopsy tomorrow if rash is not improved. propofol changed to versed 03/31: Heme/oncology consulted yesterday, will start patient on plasmapheresis for possible HUS. Cefepime discontinued today as today was the last day. Patient started on pulse dose steroids of 1 g/day for 3 days. Some improvement noted to eyes this morning. Patient was febrile overnight and received ibuprofen overnight. Acetaminophen allergy confirmed with family, allergy is only to oxycodone and hydrocodone but not the acetaminophen component. Confirmed by family patient has no reaction to [id number] Tylenol. Remains on vasopressor support and sedated with fentanyl, propofol and Versed. Vent mode changed to pressure control ventilation. Patient started on Arctic sun for fever control. Mother updated over telephone this a.m. and this p.m. family meeting held with her mother, sister x 2 and brother and with 2 other unknown people over the phone (1 female and one male) and nurse. Family states that patient is likely to an antibiotic possibly penicillins. This information was not available to us before. 04/01: Hyperkalemia medically treated, patient scheduled for dialysis today, plasmapheresis for possible HUS scheduled for today, steroids should be ending tomorrow, generalized rash/discoloration minimally better. Patient still remains on Arctic sun for temperature regulation. Vent changes per [facility]. 04/02: plasma exchange, tessa on sedatives and vasopressor support, HD for ultrafiltration 04/03: remains on artic sun but water temp noted to be in the 30s today. Completed plasmapheresis x2 and is now on steroid taper however minimal change noted to rash/discoloration. Eyes are more clear today but remain red under lids (tops of eye). Acidosis noted on ABG. Hyperkalemia and hyperphosphatemeia persists. Sedation increased for RR in to the 40s-50s and vasopressors being titrated as tolerated. 04/04: Patient receiving 1 unit PRBC per heme's recommendation, increased respiratory effort noted, patient is acidotic on ABG and given 1 amp of bicarb in addition to bicarb drip, sedation increased for vent synchrony. No HD per nephrology given tachycardia. Seroquel started. 04/05: Patient on the vent and sedated, still on 3 pressors. Patient to wean off propofol gtt, seroquel increased. Patient afebrile overnight, however artic sun is still in place. Will attempt to take off the cooling blanket today, will continue to assess for fever curve. Continue current IV Abx therapy per ID. Plan for HD today per Nephro. Patient's family at the bedside, thoroughly discussed patient's condition and overall poor prognosis. All questions and concerns were addressed. Team will continue to f/u with family with further updates. 04/06: Patient remains sedated and on the vent, still on fent and versed, propofol was weaned off. Low Hbg this am, 2 units of PRBCs ordered. Patient febrile overnight, patient completed IV abx course, leukocytosis downtrending. c/f for possible drug fever vs DVT, BLE doppler reordered to R/O DVT. Patient remains on high dose pressors, wean pressors as tolerated for MAP of 65. 04/07: Patient appears to be in distress thi am, tachypneic and tachycardic, with increased work of breathing. Propofol stopped this am. IV push versed given and versed gtt was increased to max. D/w CCM plan to possibly restart propofol since patient is not tolerating sedation wean. Patient remains febrile throughout, pancultured yesterday by ID and IV abx was restarted. Overall poor prognosis at this time. Patient's mother and siblings at the bedside were update on patient's status. Plan for possible family meeting with the care team Monday. 04/08: Patient with worsening CXR this am, increased of vent setting overnight, respiratory acidosis from this am ABG. Patient remains febrile, IV ABx switched to Merrem for VAP coverage, ID is following. Patient remains on sedation and on pressors. Low hemoglobin this am, 1unit of PRBCs ordered. Hyperkalemia noted, per Nephro it is stable no intervention at this time plan for HD tomorrow. Spoke with patient's mom, meeting postponed for possibly next week, case management to arrange. Hospitalist also called and updated patient's mother. Team will continue to follow up. 04/09: Patient condition remains unchanged, on the vent, on sedation, and on 2 pressors. Still febrile, on IV Abx, X1 set of fungal blood culture ordered. D/w ID recommended to start micafungin 100mg Qday. Hyperkalemic this am, plan for HD today. 04/10: VENICE overnight. Patient remains on the vent and sedated. Afebrile overnight, stress steroids added, pressors requirement is going down. HD overnight 3L out, plan for HD again today. Continue IV Abx and antifungal, F/u on culture data. 04/11: Patient remains on the vent and sedated, on minimal pressors this am. Tachycardic HR in the 130-140s this am. Per RN 4L out in HD yesterday, X1 dose of 25% Albumin given. Bloody drainage with clots also noted from patient nose, mouth, and ETT, Hbg 7 this am. Will hold AC for now, serial H&H ordered, transfuse if Hbg less than 7. 04/12: Patient was able to get HD today, Levaquin was stopped by ID. Consider CT chest/abdomen/pelvis when feasible per ID. Patient remains tachycardic. Was febrile most of the day however temperature decreased with icing and tylenol. 04/13: Patient had a CT chest, abdomen/pelvis with oral contrast and CT head today. Patient received 1 unit PRBC today given down trending of H/H with continual bloody drainage from mouth/nose. Patient will receive hemodialysis today. Patient started on Benadryl every 6, received 1 g of Solu-Medrol x1 for apparent angioedema post CT with contrast. 04/14: family meeting today with Dr. Mcclendon and Bola. Continue supportive care. Thrombocytopenia today and given 1 units platelets. Vasopressors where weaned off overnight but restarted this morning for low maps. Will consider trach/peg next week with lower vent settings. 04/15: started taper on steroids, 1 units prbc per hem/onc, holding HD today per nephrology for ST. Still febrile, will reculture today. Hospitalist Physical - Constitutional Vitals: Temp Pulse Resp BP Pulse Ox 100.4 F H 135 H 26 H 140/76 97 04/15/21 11:30 04/15/21 09:46 04/15/21 09:46 04/15/21 09:46 04/15/21 09:46 General appearance: Present: no acute distress, well-nourished, obese, other (Intubated and sedated) - EENT Eyes: Present: PERRL, EOM intact ENT: dentition normal - Neck Neck: Present: normal ROM - Respiratory Respiratory effort: normal Respiratory: bilateral: diminished - Cardiovascular Rhythm: regular Heart Sounds: Present: S1 & S2. Absent: systolic murmur, diastolic murmur - Extremities Extremities: pulses intact, pulses symmetrical Extremity abnormal: edema, ulceration Peripheral Pulses: within normal limits - Abdominal General gastrointestinal: soft, non-tender, non-distended, normal bowel sounds - Integumentary Integumentary: Present: dry - Psychiatric Psychiatric: other (sedated) - Neurologic Neurologic: other (sedated) - Allied Health Allied health notes reviewed: nursing, RT, social work Results - Labs CBC & Chem 7: 04/15/21 Unknown 04/15/21 Unknown Labs: Laboratory Last Values WBC 11.8 K/mm3 (4.5-11.0) H 04/15/21 Unknown RBC 2.41 M/mm3 (3.65-5.03) L 04/15/21 Unknown Hgb 7.1 gm/dl (10.1-14.3) L 04/15/21 Unknown Hct 22.4 % (30.3-42.9) L 04/15/21 Unknown MCV 93 fl (79-97) 04/15/21 Unknown MCH 29 pg (28-32) 04/15/21 Unknown MCHC 32 % (30-34) 04/15/21 Unknown RDW 17.0 % (13.2-15.2) H 04/15/21 Unknown Plt Count 38 K/mm3 (140-440) L 04/15/21 Unknown Lymph % (Auto) 10.7 % (13.4-35.0) L 03/28/21 09:37 [place] % (Auto) 5.2 % (0.0-7.3) 03/28/21 09:37 Eos % (Auto) Rotary Engraver 04/07/21 03:50 Baso % (Auto) 0.2 % (0.0-1.8) 03/28/21 09:37 Lymph # (Auto) 1.7 K/mm3 (1.2-5.4) 03/28/21 09:37 Deuel # (Auto) 0.9 K/mm3 (0.0-0.8) H 03/28/21 09:37 Eos # (Auto) 0.6 K/mm3 (0.0-0.4) H 03/28/21 09:37 Baso # (Auto) 0.0 K/mm3 (0.0-0.1) 03/28/21 09:37 Add Manual Diff Complete 04/07/21 03:50 Total Counted 100 04/07/21 03:50 Seg Neutrophils % 80.0 % (40.0-70.0) H 03/28/21 09:37 Seg Neuts % (Manual) 67.0 % (40.0-70.0) 04/07/21 03:50 Lymphocytes % (Manual) 10.0 % (13.4-35.0) L 04/07/21 03:50 Monocytes % (Manual) 4.0 % (0.0-7.3) 04/07/21 03:50 Eosinophils % (Manual) 19.0 % (0.0-4.3) H 04/07/21 03:50 Basophils % (Manual) 2.0 % (0.0-1.8) H 04/03/21 04:30 Nucleated RBC % 2.0 % (0.0-0.9) H 04/07/21 03:50 Seg Neutrophils # 13.0 K/mm3 (1.8-7.7) H 03/28/21 09:37 Seg Neutrophils # Man 17.9 K/mm3 (1.8-7.7) H 04/07/21 03:50 Band Neutrophils # 0.0 K/mm3 04/07/21 03:50 Lymphocytes # (Manual) 2.7 K/mm3 (1.2-5.4) 04/07/21 03:50 Abs React Lymphs (Man) 0.0 K/mm3 04/07/21 03:50 Monocytes # (Manual) 1.1 K/mm3 (0.0-0.8) H 04/07/21 03:50 Eosinophils # (Manual) 5.1 K/mm3 (0.0-0.4) H 04/07/21 03:50 Basophils # (Manual) 0.0 K/mm3 (0.0-0.1) 04/07/21 03:50 Metamyelocytes # 0.0 K/mm3 04/07/21 03:50 Myelocytes # 0.0 K/mm3 04/07/21 03:50 Promyelocytes # 0.0 K/mm3 04/07/21 03:50 Blast Cells # 0.0 K/mm3 04/07/21 03:50 WBC Morphology Not Reportable 04/07/21 03:50 Hypersegmented Neuts Not Reportable 04/07/21 03:50 Hyposegmented Neuts Not Reportable 04/07/21 03:50 Hypogranular Neuts Not Reportable 04/07/21 03:50 Smudge Cells Not Reportable 04/07/21 03:50 Toxic Granulation Not Reportable 04/07/21 03:50 Toxic Vacuolation Not Reportable 04/07/21 03:50 Dohle Bodies Not Reportable 04/07/21 03:50 Pelger-Huet Anomaly Not Reportable 04/07/21 03:50 Bridgette Rods Not Reportable 04/07/21 03:50 Platelet Estimate Consistent w auto 04/07/21 03:50 Clumped Platelets Not Reportable 04/07/21 03:50 Plt Clumps, EDTA Not Reportable 04/07/21 03:50 Large Platelets Not Reportable 04/07/21 03:50 Giant Platelets Not Reportable 04/07/21 03:50 Platelet Satelliting Not Reportable 04/07/21 03:50 Plt Morphology Comment Not Reportable 04/07/21 03:50 RBC Morphology Not Reportable 04/07/21 03:50 Dimorphic RBCs Not Reportable 04/07/21 03:50 Polychromasia Not Reportable 04/07/21 03:50 Hypochromasia Not Reportable 04/07/21 03:50 Poikilocytosis Not Reportable 04/07/21 03:50 Anisocytosis 1+ 04/07/21 03:50 Microcytosis Not Reportable 04/07/21 03:50 Macrocytosis Not Reportable 04/07/21 03:50 Spherocytes Not Reportable 04/07/21 03:50 Pappenheimer Bodies Not Reportable 04/07/21 03:50 Sickle Cells Not Reportable 04/07/21 03:50 Target Cells 1+ 04/07/21 03:50 Tear Drop Cells Not Reportable 04/07/21 03:50 Ovalocytes Not Reportable 04/07/21 03:50 Helmet Cells Not Reportable 04/07/21 03:50 Kebede-Wilmerding Bodies Not Reportable 04/07/21 03:50 [place] Rings Not Reportable 04/07/21 03:50 [place] Cells Not Reportable 04/07/21 03:50 Bite Cells Not Reportable 04/07/21 03:50 Crenated Cell Not Reportable 04/07/21 03:50 Elliptocytes Not Reportable 04/07/21 03:50 Acanthocytes (Spur) Not Reportable 04/07/21 03:50 Rouleaux Not Reportable 04/07/21 03:50 Hemoglobin C Crystals Not Reportable 04/07/21 03:50 Schistocytes Not Reportable 04/07/21 03:50 Malaria parasites Not Reportable 04/07/21 03:50 Percent Retic 4.52 % (0.78-2.58) H 03/31/21 09:49 Vaibhav Bodies Not Reportable 04/07/21 03:50 Hem Pathologist Commnt No 04/07/21 03:50 PT 16.3 Sec. (12.2-14.9) H 04/15/21 Unknown INR 1.18 (0.87-1.13) H 04/15/21 Unknown APTT 28.9 Sec. (24.2-36.6) 04/04/21 07:55 Fibrinogen 400 mg/dl (211-480) 04/14/21 09:45 D-Dimer 2696.79 ng/mlDDU (0-234) H 04/08/21 04:40 Heparin Anti-Xa, Unfract TNR 03/22/21 08:20 ABG pH 7.207 (7.320-7.450) L 04/14/21 21:00 POC ABG pCO2 67.6 mmHg (32.0-48.0) H 04/14/21 21:00 ABG pCO2 68.6 mm Hg 04/13/21 03:52 POC ABG pO2 143.7 mmHg (83-108) H 04/14/21 21:00 ABG pO2 98.9 mm Hg (80.0-90.0) H 04/13/21 03:52 POC ABG HCO3 26.2 04/14/21 21:00 ABG HCO3 25.5 mmol/L (20.0-26.0) 04/13/21 03:52 ABG O2 Saturation 98.8 (0-100) 04/14/21 21:00 ABG O2 Content 10.0 (0.0-44) 04/13/21 03:52 POC ABG Base Excess -1.9 04/14/21 21:00 ABG Base Excess -2.9 mmol/L (-2.0-3.0) L 04/13/21 03:52 ABG Hemoglobin 7.6 (12.0-17.5) L 04/14/21 21:00 ABG Oxyhemoglobin 97.6 (94-98) 04/14/21 21:00 ABG Carboxyhemoglobin 1.9 % (0.0-5.0) 04/13/21 03:52 ABG Methemoglobin 0.1 (0.0-1.5) 04/14/21 21:00 ABG Sodium 133.8 mmol/L (136.0-145.0) L 04/14/21 21:00 ABG Potassium 4.0 mmol/L (3.40-4.50) 04/14/21 21:00 ABG Chloride 101.0 mmol/L (98-107) 04/14/21 21:00 ABG Glucose 158 mg/dL (65-95) H 04/14/21 21:00 ABG Lactate Cancelled 04/03/21 20:45 Oxyhemoglobin 94.3 % (95.0-99.0) L 04/13/21 03:52 Carboxyhemoglobin 1.1 (0.5-1.5) 04/14/21 21:00 FiO2 65 % 04/13/21 03:52 FiO2 % 80.0 04/14/21 21:00 Sodium 137 mmol/L (137-145) 04/15/21 Unknown Potassium 4.3 mmol/L (3.6-5.0) 04/15/21 Unknown Chloride 98.5 mmol/L (98-107) 04/15/21 Unknown Carbon Dioxide 24 mmol/L (22-30) 04/15/21 Unknown Anion Gap 19 mmol/L 04/15/21 Unknown BUN 67 mg/dL (7-17) H 04/15/21 Unknown Creatinine 3.3 mg/dL (0.6-1.2) H 04/15/21 Unknown Estimated GFR 20 ml/min 04/15/21 Unknown BUN/Creatinine Ratio 20 % 04/15/21 Unknown Glucose 155 mg/dL (65-100) H 04/15/21 Unknown POC Glucose 161 mg/dL (70-105) H 04/15/21 11:10 Hemoglobin A1c 6.3 % (4-6) H 03/15/21 05:09 Lactic Acid 0.80 mmol/L (0.7-2.0) 04/07/21 03:50 Calcium 8.3 mg/dL (8.4-10.2) L 04/15/21 Unknown Phosphorus 5.70 mg/dL (2.5-4.5) H 04/15/21 Unknown Magnesium 1.90 mg/dL (1.7-2.3) 04/15/21 Unknown Ferritin 151.6 ng/mL (10.0-200.0) 03/18/21 04:30 Total Bilirubin 0.40 mg/dL (0.1-1.2) 04/15/21 Unknown Bilirubin Cancelled 04/03/21 20:45 AST 85 units/L (5-40) H 04/15/21 Unknown ALT 63 units/L (7-56) H 04/15/21 Unknown Alkaline Phosphatase 94 units/L (35-129) 04/15/21 Unknown Lactate Dehydrogenase 394 units/L (91-180) H 04/05/21 05:20 C-Reactive Protein 26.10 mg/dL (0.00-1.30) H 04/08/21 04:00 Total Protein 6.3 g/dL (6.3-8.2) 04/15/21 Unknown Albumin 2.4 g/dL (3.9-5) L 04/15/21 Unknown Albumin/Globulin Ratio 0.6 % 04/15/21 Unknown Triglycerides 406 mg/dL (2-149) H 04/11/21 04:15 Serotonin Release Assay TNR 03/22/21 08:20 Procalcitonin < 0.05 ng/mL (<0.15) 03/13/21 15:40 HCG, Qual Negative (Negative) 03/13/21 13:26 Arterial Blood Glucose 158 mg/dL (65-95) H 04/14/21 21:00 Arterial Blood Ionized Calcium 4.7 mg/dL (4.6-5.3) 04/14/21 21:00 Urine Color Sweta (Yellow) 04/06/21 Unknown Urine Turbidity Cloudy (Clear) 04/06/21 Unknown Urine pH 5.0 (5.0-7.0) 04/06/21 Unknown Ur Specific [place] 1.020 (1.003-1.030) 04/06/21 Unknown Urine Protein 100 mg/dl mg/dL (Negative) 04/06/21 Unknown Urine Glucose (UA) Neg mg/dL (Negative) 04/06/21 Unknown Urine Ketones Neg mg/dL (Negative) 04/06/21 Unknown Urine Blood Mod (Negative) 04/06/21 Unknown Urine Nitrite Neg (Negative) 04/06/21 Unknown Urine Bilirubin Neg (Negative) 04/06/21 Unknown Urine Urobilinogen < 2.0 mg/dL (<2.0) 04/06/21 Unknown Ur Leukocyte Esterase Neg (Negative) 04/06/21 Unknown Urine WBC (Auto) 148.0 /HPF (0.0-6.0) H 04/06/21 Unknown Urine RBC (Auto) > 182.0 /HPF (0.0-6.0) 04/06/21 Unknown U Epithel Cells (Auto) 102.0 /HPF (0-13.0) H 04/06/21 Unknown Urine Bacteria (Auto) 1+ /HPF (Negative) 04/06/21 Unknown Ur Renal Epithelial Cell 151 /LPF 04/06/21 Unknown Urine Mucus Few /HPF 04/06/21 Unknown Urine Yeast (Budding) 3+ /HPF 04/06/21 Unknown Urine Creatinine 40.1 mg/dL (0.1-20.0) H 03/14/21 17:50 Urine Sodium 124 mmol/L 03/14/21 17:50 Random Vancomycin 11.9 ug/mL (0-40.0) 04/15/21 07:05 KIMBERLEY Screen Negative (Negative) 04/07/21 08:27 Heparin-induced Plt Ab Negative (Negative) 03/22/21 08:20 UF Heparin High Dose TNR 03/22/21 08:20 JUAN UFH Low Dose 0.1 TNR 03/22/21 08:20 JUAN UFH Low Dose 0.5 TNR 03/22/21 08:20 Coronavirus (PCR) Negative (Negative) 04/04/21 09:00 Hepatitis A IgM Ab Non-reactive (NonReactive) 03/15/21 05:09 Hep Bs Antigen Nonreactive (Negative) 03/15/21 05:09 Hep B Core IgM Ab Non-reactive (NonReactive) 03/15/21 05:09 Hepatitis C Antibody Non-reactive (NonReactive) 03/15/21 05:09 Schistocytes Smear None seen 03/31/21 12:11 Blood Type O POSITIVE 04/11/21 13:39 Antibody Screen Negative 04/11/21 13:39 Direct Antiglob Test Negative 03/31/21 23:18 NIKOLE, Poly Interpret Negative 03/31/21 23:18 Crossmatch See Detail 04/11/21 13:39 Microbiology: Microbiology 04/11/21 15:05 Bronchial Washings - Left Upper Lobe Respiratory Culture - Preliminary Enterococcus Species Bazan/IV: Voiding Method Incontinent Active Medications - Current Medications Current Medications: Generic Name Dose Route Start Last Admin Trade Name Freq PRN Reason Stop Dose Admin Acetaminophen 650 mg 03/31/21 12:41 04/15/21 05:55 Acetaminophen 325 Mg/10.15 Ml Oral Liqd Unit Dose FEEDTUBE 650 mg Q6H PRN Administration TEMP >/=100.4 Albumin Human 25 gm 04/01/21 08:19 04/01/21 16:23 Albumin Human 25% (25 Gm/100 Ml) Inj IV 25 gm KARLOS PRN Administration Hypotension Albuterol 2.5 mg 03/19/21 00:53 Albuterol 2.5 Mg/3 Ml Nebu IH Q4HRT PRN Shortness Of Breath Albuterol/Ipratropium 1 ampul 03/19/21 08:00 04/15/21 07:39 Ipratropium/Albuterol Sulfate 3 Ml Ampul.Neb IH 1 ampul Q6HRT INESSA Administration Lipase/Protease/Amylase 1 each 04/09/21 17:17 Lipase 10,500/Protease 25,000/Amylase 43,750 (Units) Dr Cap FEEDTUBE PRN PRN For Clogged Feeding Tube Calcium Acetate 1,334 mg 04/03/21 20:00 04/15/21 07:54 Calcium Acetate 667 Mg Cap FEEDTUBE 1,334 mg TID INESSA Administration Dextrose 50 ml 03/14/21 11:02 03/15/21 11:40 Dextrose 50% In Water (25gm) 50 Ml Syringe IV 50 ml Q30MIN PRN Administration Hypoglycemia Protocol Famotidine 10 mg 03/17/21 22:00 04/15/21 09:26 Famotidine 10 Mg Tab PO 10 mg BID INESSA Administration Fentanyl 50 mcg 03/15/21 10:43 04/05/21 21:32 Fentanyl 100 Mcg/2 Ml Inj IV 50 mcg Q10MIN PRN Administration ANALGESIA Fentanyl 50 mcg 04/15/21 11:48 Fentanyl 100 Mcg/2 Ml Inj IV Q10MIN PRN ANALGESIA Hydrocortisone Sodium Succinate 75 mg 04/15/21 14:00 Hydrocortisone Sod Succ 100 Mg/2 Ml Vial IV Q8HR INESSA Hydrophilic Ointment 1 applic 03/14/21 17:50 Lip Therapy Vaseline TP Q2HR PRN Dry Lips Hydrophilic Ointment 0 applic 04/15/21 13:00 Aquaphor Ointment TP Q12H INESSA Sodium Chloride 500 mls @ 1 mls/hr 03/16/21 17:19 Nacl 0.9% 500 Ml IV DIRECT PRN ARTERIAL LINE FLUSH Midazolam HCl 100 mg/ Sodium 100 mls @ 1 mls/hr 03/30/21 15:00 04/15/21 09:27 Chloride IV 4 mg/hr TITR INESSA 4 mls/hr Administration Protocol 1 MG/HR Vasopressin 20 unit/ Sodium 101 mls @ 9.09 mls/hr 03/30/21 20:00 04/15/21 07:13 Chloride IV 0.03 units/min TITR INESSA 9.09 mls/hr Infusion 0.03 UNITS/MIN Phenylephrine HCl 100 mg/ 100 mls @ 3 mls/hr 03/31/21 04:00 04/06/21 07:58 Sodium Chloride IV 0 mcg/min TITR INESSA 0 mls/hr Titration Protocol 50 MCG/MIN Sodium Chloride 100 mls @ 999 mls/hr 04/01/21 08:19 Nacl 0.9% IV KARLOS PRN Hypotension Propofol 1,000 mg in 100 mls @ 4.26 mls/hr 04/07/21 13:00 04/12/21 12:52 Diprivan 10 Mg/Ml IV 0 mcg/kg/min TITR INESSA 0 mls/hr Titration Protocol 5 MCG/KG/MIN Micafungin Sodium 100 mg/ 100 mls @ 100 mls/hr 04/09/21 17:00 04/14/21 17:40 Sodium Chloride IV 04/16/21 17:59 100 mls/hr Q24H INESSA Administration Protocol MEROPENEM/NS 1 GRAM/100 ML 1 gram in 100 mls @ 100 mls/hr 04/12/21 22:00 04/14/21 22:05 Merrem/Ns 1 Gram/100 Ml IV 04/16/21 22:59 100 mls/hr Q24H INESSA Administration Protocol Sodium Chloride 1,000 mls @ 1 mls/hr 04/14/21 16:45 04/14/21 16:57 Nacl 0.9% 1000 Ml IV 1 mls/hr DIRECT INESSA Administration Sodium Chloride 500 mls @ 0 mls/hr 04/15/21 12:00 Nacl 0.9% 500 Ml IV 04/15/21 19:00 ONCE@1200 INESSA As Directed NORepinephrine/NS 8 MG-250 ML 8 mg in 250 mls @ 3.75 mls/hr 04/15/21 12:00 Norepinephrine/Ns 8 Mg-250 Ml (Double Conc) IV TITRATE INESSA Protocol 2 MCG/MIN Fentanyl Citrate 2,000 mcg in 100 mls @ 7.1 mls/hr 04/15/21 13:00 Fentanyl Drip Premix IV TITR INESSA Protocol 1 MCG/KG/HR Insulin Human Lispro 0 unit 03/14/21 12:00 04/15/21 06:07 Insulin Lispro 100 Unit/Ml SUB-Q Not Given Q6HR INESSA Protocol Lorazepam 1 mg 03/13/21 19:40 03/30/21 19:58 Lorazepam 2 Mg/Ml Vial IV 1 mg Q4H PRN Administration Anxiety Multi-Ingred Cream/Lotion/Oil/Oint 1 applic 03/14/21 17:50 04/10/21 22:03 Mineral Oil/Petrolatum, White Ophth Oint 3.5 Gm OU 1 applic Q4HR PRN Administration Dry Eye(s) Ondansetron HCl 4 mg 03/13/21 19:30 11/07/21 12:05 Ondansetron 4 Mg/2 Ml Inj IV 4 mg Q8H PRN Administration Nausea And Vomiting Quetiapine Fumarate 300 mg 04/06/21 22:00 04/15/21 09:27 Quetiapine 100 Mg Tab PO 300 mg BID INESSA Administration Senna/Docusate Sodium 1 tab 03/14/21 22:00 04/15/21 09:26 Sennosides/Docusate Sodium 8.6/50 Mg Tab FEEDTUBE 1 tab BID INESSA Administration Simple Syrup 15 ml 04/09/21 17:17 Simple Syrup 15 Ml FEEDTUBE PRN PRN Hypoglycemia Simple Syrup 30 ml 04/09/21 17:17 Simple Syrup 15 Ml FEEDTUBE PRN PRN Hypoglycemia Sodium Bicarbonate 325 mg 04/09/21 17:17 Sodium Bicarbonate 325 Mg Tab FEEDTUBE PRN PRN For Clogged Feeding Tube Sodium Chloride 10 ml 03/13/21 22:00 04/15/21 09:27 Sodium Chloride 0.9% 10 Ml Flush Syringe IV 10 ml BID INESSA Administration Sodium Chloride 10 ml 03/13/21 19:30 Sodium Chloride 0.9% 10 Ml Flush Syringe IV PRN PRN LINE FLUSH Nutrition/Malnutrition Assess - Dietary Evaluation Nutrition/Malnutrition Findings: Nutrition Notes Start: 03/15/21 11:06 Freq: Status: Active Protocol: Document 04/14/21 11:13 CANDACE (Rec: 04/14/21 11:52 CANDACE [id number]) Nutrition Notes Initial or Follow up Reassessment Other Pertinent Diagnosis [id number], Transaminitis, Hyperglycemia. Current Diet TF -Glucerna 1.2 Abdullahi (since L 04/14). Labs/Tests 04/14: BUN 74, Crea 3.1, Glu 220. Pertinent Medications 04/14 Vit C, D50w (25 g) mEq, Insulin, Zn, Propofol 1,000 mg /100 ml @ 4.26 ml/hr, others nutritionally unremarkable. Height 5 ft 5 in Weight 142 kg Ericson Body Weight (kg) 56.81 BMI 52.0 Weight change and time frame No new reports on body weight changes, Weight Status Morbidly Obese Subjective/Other Information RD consult on change TF from Nepro w/CARBSTEADY to Glucerna 1,2 Abdullahi, due to lack of stock Nepro. Percent of energy/protein needs met: 100% Kcal; 85% AA. Burn Absent Trauma Absent GI Symptoms None Food Allergy No Skin Integrity/Comment Clear, warm, dry. Current % PO Other Minimum of two criteria No Is patient on ventilator? Yes Is Patient Ambulatory and/or Out of Bed No REE-([facility]-confined to bed) 2570.232 Kcal/Kg value to use for calculation 14 Approximate Energy Requirements Using 1988 kcal/Kg Calculation Used for Recommendations Kcal/kg Additional Notes Pro needs >1.2g/kg adjBW: > 117g/day Fluid needs 1-1.5L/day Nutrition Intervention Nutrition Support: Change to Glucerna 1.2 Abdullahi @ 69 ml/hr. Flush: 109 ml water Q 4 hr. Kcal 1,988 Protein (gm) 99 Carbohydrates (gm) 190 Fat (gm) 99 Fluid (mL) 1,334 Fiber (gm) 27 % RDI: 100% Kcal; 85% AA. Goal #1 Maintain body weight within +/ -3% of admission BWt during LOS. Goal #2 Reach and maintain acceptable chemistry lab values during LOS. Follow-Up By: 04/16/21 Additional Comments Continue monitoring TF tolerance, Hydration, and BM. <SAURABH ALBRECHT - Last Filed: 04/16/21 08:19> Assessment and Plan Assessment and plan: I saw and evaluated the patient. Discussed with the nurse practitioner and agree with their findings and plan as documented in this note. Hospitalist Physical - Constitutional Vitals: Temp Pulse Resp BP Pulse Ox 100.2 F H 115 H 17 133/68 100 04/16/21 07:38 04/16/21 06:00 04/16/21 06:00 04/16/21 03:41 04/16/21 06:00 Results - Labs CBC & Chem 7: 04/16/21 04:54 04/16/21 04:54 Labs: Laboratory Last Values WBC 15.4 K/mm3 (4.5-11.0) H 04/16/21 04:54 RBC 2.59 M/mm3 (3.65-5.03) L 04/16/21 04:54 Hgb 7.7 gm/dl (10.1-14.3) L 04/16/21 04:54 Hct 24.1 % (30.3-42.9) L 04/16/21 04:54 MCV 93 fl (79-97) 04/16/21 04:54 MCH 30 pg (28-32) 04/16/21 04:54 MCHC 32 % (30-34) 04/16/21 04:54 RDW 16.6 % (13.2-15.2) H 04/16/21 04:54 Plt Count 42 K/mm3 (140-440) L 04/16/21 04:54 Lymph % (Auto) 10.7 % (13.4-35.0) L 03/28/21 09:37 [place]uel % (Auto) 5.2 % (0.0-7.3) 03/28/21 09:37 Eos % (Auto) Rotary Engraver 04/07/21 03:50 Baso % (Auto) 0.2 % (0.0-1.8) 03/28/21 09:37 Lymph # (Auto) 1.7 K/mm3 (1.2-5.4) 03/28/21 09:37 Deuel # (Auto) 0.9 K/mm3 (0.0-0.8) H 03/28/21 09:37 Eos # (Auto) 0.6 K/mm3 (0.0-0.4) H 03/28/21 09:37 Baso # (Auto) 0.0 K/mm3 (0.0-0.1) 03/28/21 09:37 Add Manual Diff Complete 04/07/21 03:50 Total Counted 100 04/07/21 03:50 Seg Neutrophils % 80.0 % (40.0-70.0) H 03/28/21 09:37 Seg Neuts % (Manual) 67.0 % (40.0-70.0) 04/07/21 03:50 Lymphocytes % (Manual) 10.0 % (13.4-35.0) L 04/07/21 03:50 Monocytes % (Manual) 4.0 % (0.0-7.3) 04/07/21 03:50 Eosinophils % (Manual) 19.0 % (0.0-4.3) H 04/07/21 03:50 Basophils % (Manual) 2.0 % (0.0-1.8) H 04/03/21 04:30 Nucleated RBC % 2.0 % (0.0-0.9) H 04/07/21 03:50 Seg Neutrophils # 13.0 K/mm3 (1.8-7.7) H 03/28/21 09:37 Seg Neutrophils # Man 17.9 K/mm3 (1.8-7.7) H 04/07/21 03:50 Band Neutrophils # 0.0 K/mm3 04/07/21 03:50 Lymphocytes # (Manual) 2.7 K/mm3 (1.2-5.4) 04/07/21 03:50 Abs React Lymphs (Man) 0.0 K/mm3 04/07/21 03:50 Monocytes # (Manual) 1.1 K/mm3 (0.0-0.8) H 04/07/21 03:50 Eosinophils # (Manual) 5.1 K/mm3 (0.0-0.4) H 04/07/21 03:50 Basophils # (Manual) 0.0 K/mm3 (0.0-0.1) 04/07/21 03:50 Metamyelocytes # 0.0 K/mm3 04/07/21 03:50 Myelocytes # 0.0 K/mm3 04/07/21 03:50 Promyelocytes # 0.0 K/mm3 04/07/21 03:50 Blast Cells # 0.0 K/mm3 04/07/21 03:50 WBC Morphology Not Reportable 04/07/21 03:50 Hypersegmented Neuts Not Reportable 04/07/21 03:50 Hyposegmented Neuts Not Reportable 04/07/21 03:50 Hypogranular Neuts Not Reportable 04/07/21 03:50 Smudge Cells Not Reportable 04/07/21 03:50 Toxic Granulation Not Reportable 04/07/21 03:50 Toxic Vacuolation Not Reportable 04/07/21 03:50 Dohle Bodies Not Reportable 04/07/21 03:50 Pelger-Huet Anomaly Not Reportable 04/07/21 03:50 Bridgette Rods Not Reportable 04/07/21 03:50 Platelet Estimate Consistent w auto 04/07/21 03:50 Clumped Platelets Not Reportable 04/07/21 03:50 Plt Clumps, EDTA Not Reportable 04/07/21 03:50 Large Platelets Not Reportable 04/07/21 03:50 Giant Platelets Not Reportable 04/07/21 03:50 Platelet Satelliting Not Reportable 04/07/21 03:50 Plt Morphology Comment Not Reportable 04/07/21 03:50 RBC Morphology Not Reportable 04/07/21 03:50 Dimorphic RBCs Not Reportable 04/07/21 03:50 Polychromasia Not Reportable 04/07/21 03:50 Hypochromasia Not Reportable 04/07/21 03:50 Poikilocytosis Not Reportable 04/07/21 03:50 Anisocytosis 1+ 04/07/21 03:50 Microcytosis Not Reportable 04/07/21 03:50 Macrocytosis Not Reportable 04/07/21 03:50 Spherocytes Not Reportable 04/07/21 03:50 Pappenheimer Bodies Not Reportable 04/07/21 03:50 Sickle Cells Not Reportable 04/07/21 03:50 Target Cells 1+ 04/07/21 03:50 Tear Drop Cells Not Reportable 04/07/21 03:50 Ovalocytes Not Reportable 04/07/21 03:50 Helmet Cells Not Reportable 04/07/21 03:50 Kebede-Wilmerding Bodies Not Reportable 04/07/21 03:50 [place] Rings Not Reportable 04/07/21 03:50 Balaji Cells Not Reportable 04/07/21 03:50 Bite Cells Not Reportable 04/07/21 03:50 Crenated Cell Not Reportable 04/07/21 03:50 Elliptocytes Not Reportable 04/07/21 03:50 Acanthocytes (Spur) Not Reportable 04/07/21 03:50 Rouleaux Not Reportable 04/07/21 03:50 Hemoglobin C Crystals Not Reportable 04/07/21 03:50 Schistocytes Not Reportable 04/07/21 03:50 Malaria parasites Not Reportable 04/07/21 03:50 Percent Retic 4.52 % (0.78-2.58) H 03/31/21 09:49 Vaibhav Bodies Not Reportable 04/07/21 03:50 Hem Pathologist Commnt No 04/07/21 03:50 PT 16.3 Sec. (12.2-14.9) H 04/15/21 Unknown INR 1.18 (0.87-1.13) H 04/15/21 Unknown APTT 28.9 Sec. (24.2-36.6) 04/04/21 07:55 Fibrinogen 400 mg/dl (211-480) 04/14/21 09:45 D-Dimer 2696.79 ng/mlDDU (0-234) H 04/08/21 04:40 Heparin Anti-Xa, Unfract TNR 03/22/21 08:20 ABG pH 7.305 (7.320-7.450) L 04/15/21 08:20 POC ABG pCO2 48.3 mmHg (32.0-48.0) H 04/15/21 08:20 ABG pCO2 68.6 mm Hg 04/13/21 03:52 POC ABG pO2 85.2 mmHg (83-108) 04/15/21 08:20 ABG pO2 98.9 mm Hg (80.0-90.0) H 04/13/21 03:52 POC ABG HCO3 23.5 04/15/21 08:20 ABG HCO3 25.5 mmol/L (20.0-26.0) 04/13/21 03:52 ABG O2 Saturation 95.6 (0-100) 04/15/21 08:20 ABG O2 Content 10.0 (0.0-44) 04/13/21 03:52 POC ABG Base Excess -2.7 04/15/21 08:20 ABG Base Excess -2.9 mmol/L (-2.0-3.0) L 04/13/21 03:52 ABG Hemoglobin 7.5 (12.0-17.5) L 04/15/21 08:20 ABG Oxyhemoglobin 94.6 (94-98) 04/15/21 08:20 ABG Carboxyhemoglobin 1.9 % (0.0-5.0) 04/13/21 03:52 ABG Methemoglobin 0.3 (0.0-1.5) 04/15/21 08:20 ABG Sodium 134.1 mmol/L (136.0-145.0) L 04/15/21 08:20 ABG Potassium 4.0 mmol/L (3.40-4.50) 04/15/21 08:20 ABG Chloride 101.0 mmol/L (98-107) 04/15/21 08:20 ABG Glucose 146 mg/dL (65-95) H 04/15/21 08:20 ABG Lactate Cancelled 04/03/21 20:45 Oxyhemoglobin 94.3 % (95.0-99.0) L 04/13/21 03:52 Carboxyhemoglobin 0.7 (0.5-1.5) 04/15/21 08:20 FiO2 65 % 04/13/21 03:52 FiO2 % 60 04/15/21 08:20 Sodium 140 mmol/L (137-145) 04/16/21 04:54 Potassium 4.4 mmol/L (3.6-5.0) 04/16/21 04:54 Chloride 102.0 mmol/L (98-107) 04/16/21 04:54 Carbon Dioxide 23 mmol/L (22-30) 04/16/21 04:54 Anion Gap 19 mmol/L 04/16/21 04:54 BUN 82 mg/dL (7-17) H 04/16/21 04:54 Creatinine 3.4 mg/dL (0.6-1.2) H 04/16/21 04:54 Estimated GFR 19 ml/min 04/16/21 04:54 BUN/Creatinine Ratio 24 % 04/16/21 04:54 Glucose 142 mg/dL (65-100) H 04/16/21 04:54 POC Glucose 118 mg/dL (70-105) H 04/16/21 05:23 Hemoglobin A1c 6.3 % (4-6) H 03/15/21 05:09 Lactic Acid 0.80 mmol/L (0.7-2.0) 04/07/21 03:50 Calcium 8.2 mg/dL (8.4-10.2) L 04/16/21 04:54 Phosphorus 5.70 mg/dL (2.5-4.5) H 04/15/21 Unknown Magnesium 1.90 mg/dL (1.7-2.3) 04/15/21 Unknown Ferritin 151.6 ng/mL (10.0-200.0) 03/18/21 04:30 Total Bilirubin 0.40 mg/dL (0.1-1.2) 04/15/21 Unknown Bilirubin Cancelled 04/03/21 20:45 AST 85 units/L (5-40) H 04/15/21 Unknown ALT 63 units/L (7-56) H 04/15/21 Unknown Alkaline Phosphatase 94 units/L (35-129) 04/15/21 Unknown Lactate Dehydrogenase 394 units/L (91-180) H 04/05/21 05:20 C-Reactive Protein 26.10 mg/dL (0.00-1.30) H 04/08/21 04:00 Total Protein 6.3 g/dL (6.3-8.2) 04/15/21 Unknown Albumin 2.4 g/dL (3.9-5) L 04/15/21 Unknown Albumin/Globulin Ratio 0.6 % 04/15/21 Unknown Triglycerides 406 mg/dL (2-149) H 04/11/21 04:15 Serotonin Release Assay TNR 03/22/21 08:20 Procalcitonin < 0.05 ng/mL (<0.15) 03/13/21 15:40 HCG, Qual Negative (Negative) 03/13/21 13:26 Arterial Blood Glucose 146 mg/dL (65-95) H 04/15/21 08:20 Arterial Blood Ionized Calcium 4.6 mg/dL (4.6-5.3) 04/15/21 08:20 Urine Color Sweta (Yellow) 04/15/21 18:35 Urine Turbidity Cloudy (Clear) 04/15/21 18:35 Urine pH 5.0 (5.0-7.0) 04/15/21 18:35 Ur Specific [place] 1.025 (1.003-1.030) 04/15/21 18:35 Urine Protein >500 mg/dL (Negative) 04/15/21 18:35 Urine Glucose (UA) Neg mg/dL (Negative) 04/15/21 18:35 Urine Ketones Neg mg/dL (Negative) 04/15/21 18:35 Urine Blood Mod (Negative) 04/15/21 18:35 Urine Nitrite Neg (Negative) 04/15/21 18:35 Urine Bilirubin Neg (Negative) 04/15/21 18:35 Urine Urobilinogen < 2.0 mg/dL (<2.0) 04/15/21 18:35 Ur Leukocyte Esterase Mod (Negative) 04/15/21 18:35 Urine WBC (Auto) 156.0 /HPF (0.0-6.0) H 04/15/21 18:35 Urine RBC (Auto) 56.0 /HPF (0.0-6.0) 04/15/21 18:35 U Epithel Cells (Auto) 15.0 /HPF (0-13.0) H 04/15/21 18:35 Urine Bacteria (Auto) 2+ /HPF (Negative) 04/15/21 18:35 Urine WBC Clumps 3+ /HPF 04/15/21 18:35 Ur Renal Epithelial Cell 151 /LPF 04/06/21 Unknown Urine Mucus Few /HPF 04/15/21 18:35 Urine Yeast (Budding) 3+ /HPF 04/15/21 18:35 Urine Creatinine 40.1 mg/dL (0.1-20.0) H 03/14/21 17:50 Urine Sodium 124 mmol/L 03/14/21 17:50 Random Vancomycin 11.9 ug/mL (0-40.0) 04/15/21 07:05 KIMBERLEY Screen Negative (Negative) 04/07/21 08:27 Heparin-induced Plt Ab Negative (Negative) 03/22/21 08:20 UF Heparin High Dose TNR 03/22/21 08:20 JUAN UFH Low Dose 0.1 TNR 03/22/21 08:20 JUAN UFH Low Dose 0.5 TNR 03/22/21 08:20 Coronavirus (PCR) Negative (Negative) 04/04/21 09:00 Hepatitis A IgM Ab Non-reactive (NonReactive) 03/15/21 05:09 Hep Bs Antigen Nonreactive (Negative) 03/15/21 05:09 Hep B Core IgM Ab Non-reactive (NonReactive) 03/15/21 05:09 Hepatitis C Antibody Non-reactive (NonReactive) 03/15/21 05:09 Schistocytes Smear None seen 03/31/21 12:11 Blood Type O POSITIVE 04/15/21 12:10 Antibody Screen Positive 04/15/21 12:10 Antibody Identification Anti-K 04/15/21 12:10 Direct Antiglob Test Negative 03/31/21 23:18 NIKOLE, Poly Interpret Negative 03/31/21 23:18 Crossmatch See Detail 04/15/21 12:10 Microbiology: Microbiology 04/11/21 15:05 Bronchial Washings - Left Upper Lobe Respiratory Culture - Final Enterococcus Faecalis 04/15/21 11:19 Peripheral/Venous Blood Culture - Preliminary Culture in Progress 04/15/21 11:16 Peripheral/Venous Blood Culture - Preliminary Culture in Progress Bazan/IV: Voiding Method Incontinent Active Medications - Current Medications Current Medications: Generic Name Dose Route Start Last Admin Trade Name Freq PRN Reason Stop Dose Admin Acetaminophen 650 mg 03/31/21 12:41 04/15/21 12:30 Acetaminophen 325 Mg/10.15 Ml Oral Liqd Unit Dose FEEDTUBE 650 mg Q6H PRN Administration TEMP >/=100.4 Albumin Human 25 gm 04/01/21 08:19 04/01/21 16:23 Albumin Human 25% (25 Gm/100 Ml) Inj IV 25 gm KARLOS PRN Administration Hypotension Albuterol 2.5 mg 03/19/21 00:53 Albuterol 2.5 Mg/3 Ml Nebu IH Q4HRT PRN Shortness Of Breath Albuterol/Ipratropium 1 ampul 03/19/21 08:00 04/16/21 03:06 Ipratropium/Albuterol Sulfate 3 Ml Ampul.Neb IH 1 ampul Q6HRT INESSA Administration Lipase/Protease/Amylase 1 each 04/09/21 17:17 Lipase 10,500/Protease 25,000/Amylase 43,750 (Units) Cap FEEDTUBE PRN PRN For Clogged Feeding Tube Calcium Acetate 1,334 mg 04/03/21 20:00 04/15/21 20:35 Calcium Acetate 667 Mg Cap FEEDTUBE 1,334 mg TID INESSA Administration Dextrose 50 ml 03/14/21 11:02 03/15/21 11:40 Dextrose 50% In Water (25gm) 50 Ml Syringe IV 50 ml Q30MIN PRN Administration Hypoglycemia Protocol Famotidine 10 mg 03/17/21 22:00 04/15/21 22:35 Famotidine 10 Mg Tab PO 10 mg BID INESSA Administration Fentanyl 50 mcg 04/15/21 11:48 Fentanyl 100 Mcg/2 Ml Inj IV Q10MIN PRN ANALGESIA Hydrocortisone Sodium Succinate 75 mg 04/15/21 14:00 04/16/21 05:01 Hydrocortisone Sod Succ 100 Mg/2 Ml Vial IV 75 mg Q8HR INESSA Administration Hydrophilic Ointment 1 applic 03/14/21 17:50 Lip Therapy Vaseline TP Q2HR PRN Dry Lips Hydrophilic Ointment 1 applic 04/15/21 13:00 04/15/21 21:00 Aquaphor Ointment TP 1 applic Q12HR INESSA Administration Sodium Chloride 500 mls @ 1 mls/hr 03/16/21 17:19 Nacl 0.9% 500 Ml IV DIRECT PRN ARTERIAL LINE FLUSH Midazolam HCl 100 mg/ Sodium 100 mls @ 1 mls/hr 03/30/21 15:00 04/15/21 09:27 Chloride IV 4 mg/hr TITR INESSA 4 mls/hr Administration Protocol 1 MG/HR Vasopressin 20 unit/ Sodium 101 mls @ 9.09 mls/hr 03/30/21 20:00 04/15/21 07:13 Chloride IV 0.03 units/min TITR INESSA 9.09 mls/hr Infusion 0.03 UNITS/MIN Phenylephrine HCl 100 mg/ 100 mls @ 3 mls/hr 03/31/21 04:00 04/06/21 07:58 Sodium Chloride IV 0 mcg/min TITR INESSA 0 mls/hr Titration Protocol 50 MCG/MIN Sodium Chloride 100 mls @ 999 mls/hr 04/01/21 08:19 Nacl 0.9% IV KARLOS PRN Hypotension Propofol 1,000 mg in 100 mls @ 4.26 mls/hr 04/07/21 13:00 04/12/21 12:52 Diprivan 10 Mg/Ml IV 0 mcg/kg/min TITR INESSA 0 mls/hr Titration Protocol 5 MCG/KG/MIN Micafungin Sodium 100 mg/ 100 mls @ 100 mls/hr 04/09/21 17:00 04/15/21 18:01 Sodium Chloride IV 04/16/21 17:59 100 mls/hr Q24H INESSA Administration Protocol MEROPENEM/NS 1 GRAM/100 ML 1 gram in 100 mls @ 100 mls/hr 04/12/21 22:00 04/15/21 22:53 Merrem/Ns 1 Gram/100 Ml IV 04/16/21 22:59 100 mls/hr Q24H INESSA Administration Protocol Sodium Chloride 1,000 mls @ 1 mls/hr 04/14/21 16:45 04/14/21 16:57 Nacl 0.9% 1000 Ml IV 1 mls/hr DIRECT INESSA Administration NORepinephrine/NS 8 MG-250 ML 8 mg in 250 mls @ 3.75 mls/hr 04/15/21 12:00 04/15/21 17:55 Norepinephrine/Ns 8 Mg-250 Ml (Double Conc) IV 10 mcg/min TITRATE INESSA 18.75 mls/hr Titration Protocol 2 MCG/MIN Fentanyl Citrate 2,000 mcg in 100 mls @ 7.1 mls/hr 04/15/21 13:00 04/16/21 08:11 Fentanyl Drip Premix IV 3 mcg/kg/hr TITR INESSA 21.3 mls/hr Administration Protocol 1 MCG/KG/HR Sodium Chloride 500 mls @ 0 mls/hr 04/15/21 16:42 Nacl 0.9% 500 Ml IV ONCE INESSA As Directed Insulin Human Lispro 0 unit 03/14/21 12:00 04/16/21 07:49 Insulin Lispro 100 Unit/Ml SUB-Q Not Given Q6HR [facility] Protocol Lorazepam 1 mg 03/13/21 19:40 03/30/21 19:58 Lorazepam 2 Mg/Ml Vial IV 1 mg Q4H PRN Administration Anxiety Multi-Ingred Cream/Lotion/Oil/Oint 1 applic 03/14/21 17:50 04/15/21 22:35 Mineral Oil/Petrolatum, White Ophth Oint 3.5 Gm OU 1 applic Q4HR PRN Administration Dry Eye(s) Ondansetron HCl 4 mg 03/13/21 19:30 03/21/21 12:05 Ondansetron 4 Mg/2 Ml Inj IV 4 mg Q8H PRN Administration Nausea And Vomiting Quetiapine Fumarate 300 mg 04/06/21 22:00 04/15/21 22:35 Quetiapine 100 Mg Tab PO 300 mg BID INESSA Administration Senna/Docusate Sodium 1 tab 03/14/21 22:00 04/15/21 22:53 Sennosides/Docusate Sodium 8.6/50 Mg Tab FEEDTUBE 1 tab BID INESSA Administration Simple Syrup 15 ml 04/09/21 17:17 Simple Syrup 15 Ml FEEDTUBE PRN PRN Hypoglycemia Simple Syrup 30 ml 04/09/21 17:17 Simple Syrup 15 Ml FEEDTUBE PRN PRN Hypoglycemia Sodium Bicarbonate 325 mg 04/09/21 17:17 Sodium Bicarbonate 325 Mg Tab FEEDTUBE PRN PRN For Clogged Feeding Tube Sodium Chloride 10 ml 03/13/21 22:00 04/15/21 22:36 Sodium Chloride 0.9% 10 Ml Flush Syringe IV 10 ml BID INESSA Administration Sodium Chloride 10 ml 03/13/21 19:30 Sodium Chloride 0.9% 10 Ml Flush Syringe IV PRN PRN LINE FLUSH Nutrition/Malnutrition Assess - Dietary Evaluation Nutrition/Malnutrition Findings: Nutrition Notes Start: 03/15/21 11:06 Freq: Status: Active Protocol: Document 04/14/21 11:13 CANDACE (Rec: 04/14/21 11:52 CANDACE [id number]) Nutrition Notes Initial or Follow up Reassessment Other Pertinent Diagnosis [id number], Transaminitis, Hyperglycemia. Current Diet TF -Glucerna 1.2 Abdullahi (since L 04/14). Labs/Tests 04/14: BUN 74, Crea 3.1, Glu 220. Pertinent Medications 04/14 Vit C, D50w (25 g) mEq, Insulin, Zn, Propofol 1,000 mg /100 ml @ 4.26 ml/hr, others nutritionally unremarkable. Height 5 ft 5 in Weight 142 kg [place] Body Weight (kg) 56.81 BMI 52.0 Weight change and time frame No new reports on body weight changes, Weight Status Morbidly Obese Subjective/Other Information RD consult on change TF from Nepro w/CARBSTEADY to Glucerna 1,2 Abdullahi, due to lack of stock Nepro. Percent of energy/protein needs met: 100% Kcal; 85% AA. Burn Absent Trauma Absent GI Symptoms None Food Allergy No Skin Integrity/Comment Clear, warm, dry. Current % PO Other Minimum of two criteria No Is patient on ventilator? Yes Is Patient Ambulatory and/or Out of Bed No REE-([facility]-confined to bed) 2570.232 Kcal/Kg value to use for calculation 14 Approximate Energy Requirements Using 1988 kcal/Kg Calculation Used for Recommendations Kcal/kg Additional Notes Pro needs >1.2g/kg adjBW: > 117g/day Fluid needs 1-1.5L/day Nutrition Intervention Nutrition Support: Change to Glucerna 1.2 Abdullahi @ 69 ml/hr. Flush: 109 ml water Q 4 hr. Kcal 1,988 Protein (gm) 99 Carbohydrates (gm) 190 Fat (gm) 99 Fluid (mL) 1,334 Fiber (gm) 27 % RDI: 100% Kcal; 85% AA. Goal #1 Maintain body weight within +/ -3% of admission BWt during LOS. Goal #2 Reach and maintain acceptable chemistry lab values during LOS. Follow-Up By: 04/16/21 Additional Comments Continue monitoring TF tolerance, Hydration, and BM.
[2021-04-15] MEDS: SODIUM CHLORIDE IV SCH (13:12)
[2021-04-15] MEDS: NOREPINEPHRINE IV SCH (13:12)
[2021-04-15] MEDS: NORepinephrine/NS 8 MG-250 ML 8 MG/250 ML INFUS..BTL IV SCH (13:27)
--- NOTE | 2021-04-15 14:45 | Progress Note ---
Assessment and Plan Cultures: SARS CoV2 PCR: Positive 03/13/2021 blood culture: No growth Resp cultures 03/14/2021: MSSA 03/23/2021 blood culture: No growth 03/23/2021 sputum culture: Usual respiratory maury 03/29/2021 blood culture: no growth 04/06/2021 blood culture: In process 04/06/2021 endotracheal aspirate culture: E faecalis 04/06/2021 urine culture: No growth A/P: 31-year-old female with asthma, morbid obesity, Crohn's disease admitted with cough and shortness of breath: #Septic shock: s/p abx. Persistently febrile, on multiple pressors. Has previously completed Ancef followed by Cefepime, and now on Aztreonam, Vancomycin and levofloxacin. #Bilateral pneumonia: Secondary to COVID-19. Severe disease, then developed MSSA in the lungs. s/p Actemra 03/15/2021, completed steroids for COVID. D-dimer very high initially, which has shown improvement. #Acute hypoxic respiratory failure: on the vent. #Rash with eosinophilia: Question of drug reaction, remains off Cefepime. 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 #Acute renal failure: progressive. Nephrology following, on HD. #Acute asthma exacerbation #Morbid obesity Recs: -f/u new cultures: blood culture -Continue micafungin -Continue vancomycin goal trough 10-20 -Continue meropenem -Complete 8 days of above -on steroids per ICU -Unable to complete CT -extremely poor prognosis, recommend palliative care Champ Ling MD [facility] O: [phone] F: [phone] Subjective Date of service: 04/15/21 Principal diagnosis: Ac hypoxemic resp failure; AE-Asthma; SAI; Crohn's; COVID- 19; Pneumonia Interval history: Persistently febrile, white count 11.8. Repeat blood cultures no growth so far. Objective - Exam Narrative Exam: Physical exam deferred to reduce risk of transmission of COVID-19. Please refer to primary team's note. - Constitutional Vitals: Vital Signs Temp Pulse Resp BP Pulse Ox 100.4 F H 141 H 26 H 127/54 93 04/15/21 11:30 04/15/21 11:51 04/15/21 09:46 04/15/21 11:51 04/15/21 11:51 Temperature -Last 24 Hours Temperature 100.4 F Temperature 102.0 F Temperature 102.0 F Temperature 102.0 F Temperature 101.5 F Temperature 99.9 F Temperature 99.3 F Temperature 99.3 F - Labs CBC & Chem 7: 04/15/21 Unknown 04/15/21 Unknown Labs: Abnormal lab results 04/14/21 04/14/21 04/14/21 Range/Units 16:20 21:00 23:53 WBC (4.5-11.0) K/mm3 RBC (3.65-5.03) M/mm3 Hgb (10.1-14.3) gm/dl Hct (30.3-42.9) % RDW (13.2-15.2) % Plt Count (140-440) K/mm3 PT (12.2-14.9) Sec. INR (0.87-1.13) ABG pH 7.207 L (7.320-7.450) POC ABG pCO2 67.6 H (32.0-48.0) mmHg POC ABG pO2 143.7 H (83-108) mmHg ABG Hemoglobin 7.6 L (12.0-17.5) ABG Sodium 133.8 L (136.0-145.0) mmol/L ABG Glucose 158 H (65-95) mg/dL BUN (7-17) mg/dL Creatinine (0.6-1.2) mg/dL Glucose (65-100) mg/dL POC Glucose 168 H 147 H (70-105) mg/dL Calcium (8.4-10.2) mg/dL Phosphorus (2.5-4.5) mg/dL AST (5-40) units/L ALT (7-56) units/L Albumin (3.9-5) g/dL Arterial Blood Glucose 158 H (65-95) mg/dL 04/15/21 04/15/21 04/15/21 Range/Units 08:20 11:10 12:10 WBC (4.5-11.0) K/mm3 RBC (3.65-5.03) M/mm3 Hgb (10.1-14.3) gm/dl Hct (30.3-42.9) % RDW (13.2-15.2) % Plt Count (140-440) K/mm3 PT (12.2-14.9) Sec. INR (0.87-1.13) ABG pH 7.305 L (7.320-7.450) POC ABG pCO2 48.3 H (32.0-48.0) mmHg POC ABG pO2 (83-108) mmHg ABG Hemoglobin 7.5 L (12.0-17.5) ABG Sodium 134.1 L (136.0-145.0) mmol/L ABG Glucose 146 H (65-95) mg/dL BUN (7-17) mg/dL Creatinine (0.6-1.2) mg/dL Glucose (65-100) mg/dL POC Glucose 161 H 166 H (70-105) mg/dL Calcium (8.4-10.2) mg/dL Phosphorus (2.5-4.5) mg/dL AST (5-40) units/L ALT (7-56) units/L Albumin (3.9-5) g/dL Arterial Blood Glucose 146 H (65-95) mg/dL 04/15/21 04/15/21 04/15/21 Range/Units Unknown Unknown Unknown WBC 11.8 H (4.5-11.0) K/mm3 RBC 2.41 L (3.65-5.03) M/mm3 Hgb 7.1 L (10.1-14.3) gm/dl Hct 22.4 L (30.3-42.9) % RDW 17.0 H (13.2-15.2) % Plt Count 38 L (140-440) K/mm3 PT 16.3 H (12.2-14.9) Sec. INR 1.18 H (0.87-1.13) ABG pH (7.320-7.450) POC ABG pCO2 (32.0-48.0) mmHg POC ABG pO2 (83-108) mmHg ABG Hemoglobin (12.0-17.5) ABG Sodium (136.0-145.0) mmol/L ABG Glucose (65-95) mg/dL BUN 67 H (7-17) mg/dL Creatinine 3.3 H (0.6-1.2) mg/dL Glucose 155 H (65-100) mg/dL POC Glucose (70-105) mg/dL Calcium 8.3 L (8.4-10.2) mg/dL Phosphorus 5.70 H (2.5-4.5) mg/dL AST 85 H (5-40) units/L ALT 63 H (7-56) units/L Albumin 2.4 L (3.9-5) g/dL Arterial Blood Glucose (65-95) mg/dL
[2021-04-15] MEDS ORDERED: VANCOMYCIN 1,500 MG in SODIUM CHLORIDE 0.9% 500 ML 500 ML IV ONE (18:00)
[2021-04-15] MEDS: MICAFUNGIN 100 MG in SODIUM CHLORIDE 0.9% 100 ML IV SCH (18:01)
[2021-04-15 18:56] LABS: Bacteria,Urine 2+ /HPF (Negative); Bilirubin,Urine NEG (Negative); Blood,Urine MOD (Negative); Color,Urine Amber (Yellow); Mucus,Urine FEW /HPF; Urobilinogen,Urine < 2.0 mg/dL (<2.0)
[2021-04-15 18:59] LABS: Protein,Urine >500 mg/dL (Negative)
[2021-04-15] MEDS: AQUAPHOR OINTMENT TP SCH (21:00)
[2021-04-15] MEDS: MINERAL OIL/PETROLATUM, WHITE OPHTH OINT 3.5 GM OU PRN (22:35)
[2021-04-15] MEDS: MEROPENEM/NS 1 GRAM/100 ML 1 GRAM/100 ML BAG IV SCH (22:53)
--- NOTE | 2021-04-16 03:05 | XRay Report ---
ABDOMEN 1 VIEW 04/16/2021 2:45 AM INDICATION / CLINICAL INFORMATION: Dobbhoff placement. COMPARISON: 03/21/21. FINDINGS: TUBES / LINES: There is a weighted enteric feeding tube with the tip overlying the descending duodenu m. BOWEL GAS PATTERN: No significant abnormality. FREE AIR / EXTRALUMINAL GAS: None. ADDITIONAL FINDINGS: No significant additional findings. IMPRESSION: Feeding tube tip overlies the descending duodenum. Signer Name: Alex Rao MD Signed: 04/16/2021 3:01 AM Workstation Name: [id number]
[2021-04-16] MEDS: IPRATROPIUM/ALBUTEROL SULFATE 3 ML AMPUL.NEB IH SCH ×4 (03:06→19:39)
[2021-04-16] MEDS: fentaNYL DRIP Premix 2,000 MCG/100 ML BAG IV SCH ×4 (04:58→20:00)
[2021-04-16] MEDS: HYDROCORTISONE SOD SUCC 100 MG/2 ML VIAL IV SCH ×3 (05:01→22:56)
[2021-04-16 05:21] LABS: Hematocrit 24.1 % (30.3-42.9); Hemoglobin 7.7 gm/dl (10.1-14.3); Mean Corpuscular HGB Conc 32 % (30-34); Mean Corpuscular Volume 93 fl (79-97); Red Blood Count 2.59 M/mm3 (3.65-5.03); Red Cell Distribution Width 16.6 % (13.2-15.2)
[2021-04-16 05:36] LABS: Platelet Count 42 K/mm3 (140-440)
[2021-04-16 05:44] LABS: Calcium 8.2 mg/dL (8.4-10.2)
[2021-04-16] MEDS: INSULIN LISPRO 100 UNIT/ML SUB-Q SCH ×4 (07:49→17:55)
[2021-04-16] MEDS: CALCIUM ACETATE 667 MG CAP FEEDTUBE SCH ×3 (10:10→20:01)
[2021-04-16] MEDS: FAMOTIDINE 10 MG TAB PO SCH ×2 (10:11→22:58)
[2021-04-16] MEDS: QUEtiapine 100 MG TAB PO SCH ×2 (10:11→22:57)
[2021-04-16] MEDS: SENNOSIDES/DOCUSATE SODIUM 8.6/50 MG TAB FEEDTUBE SCH ×2 (10:11→22:56)
[2021-04-16] MEDS: AQUAPHOR OINTMENT TP SCH ×2 (10:11→22:58)
[2021-04-16] MEDS: MIDAZOLAM 100 MG in SODIUM CHLORIDE 0.9% 80 ML IV SCH (12:46)
[2021-04-16] MEDS: VASOPRESSIN 20 UNIT in SODIUM CHLORIDE 0.9% 100 ML IV SCH (12:46)
--- NOTE | 2021-04-16 13:50 | Progress Note ---
Assessment and Plan Acute hypoxemic respiratory failure Acute asthma exacerbation Morbid obesity Crohn's disease Metabolic acidosis Acute kidney injury Coronavirus infection Pneumonia (CAP) Oropharyngeal dysphagia Obesity, if not mentioned above (Padmini will need a tracheostomy once more stable; also discussed care plan extensively with her mother and siblings yesterday re-iterating the gravity of her illness in family conference) - continue weaning stress dose steroids - repeat ABG in am - continue care as below otherwise; - HD/UF per nephrology prescription for toxin and volume clearance - wean vasopressors for target MAP > 65 mmHg - nephrology input appreciated; HD/UF for toxin and volume clearance - continue Daily SAT and SBT assessment as tolerated - continue to wean supplemental oxygen for target O2 sat's > 90% acutely - VAP bundle addressed - continue lung protective strategies - continue bronchodilators with pulmonary hygiene per RT - wean per pulmonary driven protocols otherwise - continue accuchecks with glycemic control per SSI (While critically ill target blood glucose of 140-180 mg/dL; avoid hypoglycemia) - sedation prn for target RASS 0 to -1 - avoid nephrotoxins, renally dose all medications - continue to avoid benzodiazepine's, reduce the possibility of delirium - de-escalate AB's per ID rec's - prn analgesia per CPOT score - Maintenance of sleep-wake cycle, avoid delirium - continue enteral nutritional support at goal rate as tolerated - G.I. & VTE prophylaxis - PT/OT/ROM exercises - continue mobility protocols for pressure ulcer prophylaxis - Monitor hemodynamics closely - continue other care per attending / other consultants - discharge planning ongoing concurrently COVID SPECIFIC INTERVENTIONS - Isolation discontinued - s/p Actemra - Remdesivir as per ID/Pulmonary developed protocols (not a candidate) - continue systemic steroids for severe COVID-19 infection empirically - repeat COVID tests result negative - zinc and vitamin C supplementation - Monitor inflammatory markers per facility protocol - ferritin, Ddimer, CRP - therapeutic anticoagulation per system Protocol based on d-dimer and clinical considerations (VTE prophylaxis) - Continue contact and airborne isolation .... Re-evaluate in am & prn CONDITION: CRITICAL PROGNOSIS: GUARDED CODE STATUS: FULL CODE The high probability of a clinically significant, sudden or life-threatening deterioration of the [respiratory, cardiovascular, renal & neurologic] system(s) required my full and direct attention, intervention and personal management. The aggregate critical care time was [35] minutes without overlap. Time includes spent on; [x] Data Review and interpretation [x] Patient assessment and monitoring of vital signs [x] Documentation [x] Medication orders and management Subjective Date of service: 04/16/21 Principal diagnosis: Ac hypoxemic resp failure; AE-Asthma; SAI; Crohn's; COVID- 19; Pneumonia Interval history: Patient is seen today for: Acute hypoxemic respiratory failure; AE-Asthma; SAI; Crohn's disease; COVID-19 infection; Pneumonia (CAP) Seen and examined at bedside; 24hour events reviewed; nursing and respiratory care staff consulted; no adverse overnight events reported to me; resting in bed; remains on MVS; tentatively for HD/UF today; AMS is persistent; still with some oropharyngeal sero-sanguineous oozing; no emesis or overt aspiration; skin rash continues to exfoliate Objective Vital Signs - 12hr 04/16/21 04/16/21 04/16/21 01:55 02:00 02:10 Temperature 100.2 F H 100.2 F H Pulse Rate 116 H 115 H Pulse Rate [ Anterior Bilateral Throughout] Pulse Rate [ From Monitor] Respiratory 22 19 Rate Respiratory Rate [Anterior Bilateral Throughout] Blood Pressure O2 Sat by Pulse 100 100 Oximetry 04/16/21 04/16/21 04/16/21 02:20 02:30 02:40 Temperature 99.9 F H Pulse Rate 116 H 115 H 119 H Pulse Rate [ Anterior Bilateral Throughout] Pulse Rate [ From Monitor] Respiratory 22 25 H 24 Rate Respiratory Rate [Anterior Bilateral Throughout] Blood Pressure O2 Sat by Pulse 100 100 100 Oximetry 04/16/21 04/16/21 04/16/21 02:50 02:54 02:56 Temperature 100 F H Pulse Rate 121 H 122 H Pulse Rate [ Anterior Bilateral Throughout] Pulse Rate [ From Monitor] Respiratory 25 H 27 H Rate Respiratory Rate [Anterior Bilateral Throughout] Blood Pressure O2 Sat by Pulse 100 100 Oximetry 04/16/21 04/16/21 04/16/21 03:00 03:06 03:07 Temperature Pulse Rate 122 H 127 H 129 H Pulse Rate [ 129 H Anterior Bilateral Throughout] Pulse Rate [ From Monitor] Respiratory 29 H 31 H Rate Respiratory 30 H Rate [Anterior Bilateral Throughout] Blood Pressure 154/91 O2 Sat by Pulse 100 100 100 Oximetry 04/16/21 04/16/21 04/16/21 03:10 03:11 03:16 Temperature 100.2 F H 100 F H Pulse Rate 129 H 130 H Pulse Rate [ Anterior Bilateral Throughout] Pulse Rate [ From Monitor] Respiratory 28 H 29 H Rate Respiratory Rate [Anterior Bilateral Throughout] Blood Pressure O2 Sat by Pulse 100 100 Oximetry 04/16/21 04/16/21 04/16/21 03:30 03:41 03:50 Temperature 99.7 F H Pulse Rate 132 H 128 H 126 H Pulse Rate [ Anterior Bilateral Throughout] Pulse Rate [ From Monitor] Respiratory 29 H 32 H 21 Rate Respiratory Rate [Anterior Bilateral Throughout] Blood Pressure 133/68 O2 Sat by Pulse 100 99 99 Oximetry 04/16/21 04/16/21 04/16/21 04:00 04:10 04:20 Temperature Pulse Rate 128 H 128 H 125 H Pulse Rate [ Anterior Bilateral Throughout] Pulse Rate [ 128 H From Monitor] Respiratory 31 H 17 17 Rate Respiratory Rate [Anterior Bilateral Throughout] Blood Pressure O2 Sat by Pulse 100 99 100 Oximetry 04/16/21 04/16/21 04/16/21 04:24 04:30 04:40 Temperature 99.7 F H 98.6 F Pulse Rate 122 H 120 H Pulse Rate [ Anterior Bilateral Throughout] Pulse Rate [ From Monitor] Respiratory 17 17 Rate Respiratory Rate [Anterior Bilateral Throughout] Blood Pressure O2 Sat by Pulse 100 100 Oximetry 04/16/21 04/16/21 04/16/21 04:50 05:00 05:16 Temperature Pulse Rate 126 H 125 H 120 H Pulse Rate [ Anterior Bilateral Throughout] Pulse Rate [ From Monitor] Respiratory 23 21 21 Rate Respiratory Rate [Anterior Bilateral Throughout] Blood Pressure O2 Sat by Pulse 100 100 100 Oximetry 04/16/21 04/16/21 04/16/21 05:30 05:46 06:00 Temperature Pulse Rate 118 H 118 H 115 H Pulse Rate [ Anterior Bilateral Throughout] Pulse Rate [ From Monitor] Respiratory 20 19 17 Rate Respiratory Rate [Anterior Bilateral Throughout] Blood Pressure O2 Sat by Pulse 100 100 100 Oximetry 04/16/21 04/16/21 04/16/21 06:16 06:30 06:46 Temperature Pulse Rate 114 H 116 H 121 H Pulse Rate [ Anterior Bilateral Throughout] Pulse Rate [ From Monitor] Respiratory 18 18 18 Rate Respiratory Rate [Anterior Bilateral Throughout] Blood Pressure O2 Sat by Pulse 100 100 100 Oximetry 04/16/21 04/16/21 04/16/21 07:00 07:16 07:30 Temperature Pulse Rate 122 H 114 H 114 H Pulse Rate [ Anterior Bilateral Throughout] Pulse Rate [ From Monitor] Respiratory 18 21 30 H Rate Respiratory Rate [Anterior Bilateral Throughout] Blood Pressure O2 Sat by Pulse 100 100 99 Oximetry 04/16/21 04/16/21 04/16/21 07:38 07:46 08:00 Temperature 100.2 F H 99.9 F H Pulse Rate 113 H 112 H Pulse Rate [ Anterior Bilateral Throughout] Pulse Rate [ 112 H From Monitor] Respiratory 30 H 30 H Rate Respiratory Rate [Anterior Bilateral Throughout] Blood Pressure O2 Sat by Pulse 99 99 Oximetry 04/16/21 04/16/21 04/16/21 08:16 08:30 08:46 Temperature Pulse Rate 112 H 112 H 106 H Pulse Rate [ Anterior Bilateral Throughout] Pulse Rate [ From Monitor] Respiratory 30 H 20 30 H Rate Respiratory Rate [Anterior Bilateral Throughout] Blood Pressure O2 Sat by Pulse 100 100 100 Oximetry 04/16/21 04/16/21 04/16/21 09:00 09:15 09:16 Temperature Pulse Rate 106 H 105 H 105 H Pulse Rate [ 108 H Anterior Bilateral Throughout] Pulse Rate [ From Monitor] Respiratory 30 H 30 H Rate Respiratory 30 H Rate [Anterior Bilateral Throughout] Blood Pressure 85/54 O2 Sat by Pulse 100 100 100 Oximetry 04/16/21 04/16/21 04/16/21 09:30 09:46 10:00 Temperature Pulse Rate 105 H 108 H 105 H Pulse Rate [ Anterior Bilateral Throughout] Pulse Rate [ From Monitor] Respiratory 30 H 30 H 30 H Rate Respiratory Rate [Anterior Bilateral Throughout] Blood Pressure O2 Sat by Pulse 100 100 100 Oximetry 04/16/21 04/16/21 04/16/21 10:16 10:30 10:46 Temperature Pulse Rate 104 H 124 H 113 H Pulse Rate [ Anterior Bilateral Throughout] Pulse Rate [ From Monitor] Respiratory 30 H 30 H 30 H Rate Respiratory Rate [Anterior Bilateral Throughout] Blood Pressure O2 Sat by Pulse 100 99 99 Oximetry 04/16/21 04/16/21 04/16/21 11:00 11:16 11:24 Temperature 99.9 F H Pulse Rate 111 H 111 H Pulse Rate [ Anterior Bilateral Throughout] Pulse Rate [ From Monitor] Respiratory 30 H 30 H Rate Respiratory Rate [Anterior Bilateral Throughout] Blood Pressure O2 Sat by Pulse 100 99 Oximetry 04/16/21 11:30 Temperature Pulse Rate 108 H Pulse Rate [ Anterior Bilateral Throughout] Pulse Rate [ From Monitor] Respiratory 30 H Rate Respiratory Rate [Anterior Bilateral Throughout] Blood Pressure O2 Sat by Pulse 100 Oximetry Constitutional: no acute distress, other (morbidly obese female with mild ventilator dyssynchrony) Eyes: non-icteric, other (scleral erythema improved) ENT: oropharynx moist, oropharyngeal exudate pre (serosanguinous), other (ETT 25 cm BALJINDER) Neck: supple, no lymphadenopathy, no JVD, other (large circumference) Effort: mildly labored Ascultation: Bilateral: diminished breath sounds, rhonchi Percussion: Bilateral: not dull Cardiovascular: regular rate and rhythm Gastrointestinal: normoactive bowel sounds, soft, non-tender, non-distended (protuberant) Integumentary: rash (now scaling / drying), other Extremities: no cyanosis, pulses normal, no ischemia or petechiae, edema (1+) Neurologic: pupils equal and round, CN II-XII normal, other (unasble to assess re: AMS) Psychiatric: other (unasble to assess) CBC and BMP: 04/19/21 05:00 04/19/21 04:00 ABG, PT/INR, D-dimer: ABG ABG pH 7.305 (7.320-7.450) L 04/15/21 08:20 POC ABG pCO2 48.3 mmHg (32.0-48.0) H 04/15/21 08:20 ABG pCO2 68.6 mm Hg 04/13/21 03:52 POC ABG pO2 85.2 mmHg (83-108) 04/15/21 08:20 ABG pO2 98.9 mm Hg (80.0-90.0) H 04/13/21 03:52 POC ABG HCO3 23.5 04/15/21 08:20 ABG O2 Saturation 95.6 (0-100) 04/15/21 08:20 PT/INR, D-dimer PT 16.3 Sec. (12.2-14.9) H 04/15/21 Unknown INR 1.18 (0.87-1.13) H 04/15/21 Unknown D-Dimer 2696.79 ng/mlDDU (0-234) H 04/08/21 04:40 Abnormal lab findings: Abnormal Labs 03/13/21 03/13/21 03/13/21 13:26 13:26 15:40 WBC RBC Hgb Hct MCH 27 L MCHC RDW 17.0 H Plt Count Lymph % (Auto) [place] # (Auto) Eos # (Auto) Seg Neutrophils % Lymphocytes % (Manual) Eosinophils % (Manual) Basophils % (Manual) Nucleated RBC % Seg Neutrophils # Seg Neutrophils # Man Lymphocytes # (Manual) Monocytes # (Manual) Eosinophils # (Manual) Basophils # (Manual) Percent Retic PT INR Fibrinogen D-Dimer ABG pH POC ABG pCO2 POC ABG pO2 ABG pO2 ABG HCO3 ABG O2 Saturation ABG Base Excess ABG Hemoglobin ABG Oxyhemoglobin ABG Sodium ABG Potassium ABG Chloride ABG Glucose Oxyhemoglobin Carboxyhemoglobin Sodium 136 L Potassium Chloride Carbon Dioxide BUN Creatinine Glucose 125 H 130 H POC Glucose Hemoglobin A1c Calcium Phosphorus Magnesium AST ALT Alkaline Phosphatase Lactate Dehydrogenase 235 H C-Reactive Protein 4.30 H Total Protein Albumin Triglycerides Arterial Blood Glucose Arterial Blood Ionized Calcium Urine WBC (Auto) U Epithel Cells (Auto) Urine Creatinine Random Vancomycin Coronavirus (PCR) Crossmatch 03/13/21 03/14/21 03/14/21 21:33 03:35 06:21 WBC 20.0 H RBC Hgb Hct MCH 27 L MCHC RDW 17.5 H Plt Count Lymph % (Auto) 7.8 L [place] # (Auto) 1.3 H Eos # (Auto) Seg Neutrophils % 85.4 H Lymphocytes % (Manual) Eosinophils % (Manual) Basophils % (Manual) Nucleated RBC % Seg Neutrophils # 17.1 H Seg Neutrophils # Man Lymphocytes # (Manual) Monocytes # (Manual) Eosinophils # (Manual) Basophils # (Manual) Percent Retic PT INR Fibrinogen D-Dimer ABG pH 7.323 L 7.234 L POC ABG pCO2 POC ABG pO2 ABG pO2 69.8 L ABG HCO3 ABG O2 Saturation 92.9 L 94.9 L ABG Base Excess -3.3 L -5.4 L ABG Hemoglobin ABG Oxyhemoglobin ABG Sodium ABG Potassium ABG Chloride ABG Glucose Oxyhemoglobin 91.2 L 93.2 L Carboxyhemoglobin Sodium Potassium Chloride Carbon Dioxide BUN Creatinine Glucose POC Glucose Hemoglobin A1c Calcium Phosphorus Magnesium AST ALT Alkaline Phosphatase Lactate Dehydrogenase C-Reactive Protein Total Protein Albumin Triglycerides Arterial Blood Glucose Arterial Blood Ionized Calcium Urine WBC (Auto) U Epithel Cells (Auto) Urine Creatinine Random Vancomycin Coronavirus (PCR) Crossmatch 03/14/21 03/14/21 03/14/21 06:21 07:47 11:21 WBC RBC Hgb Hct MCH MCHC RDW Plt Count Lymph % (Auto) [place] # (Auto) Eos # (Auto) Seg Neutrophils % Lymphocytes % (Manual) Eosinophils % (Manual) Basophils % (Manual) Nucleated RBC % Seg Neutrophils # Seg Neutrophils # Man Lymphocytes # (Manual) Monocytes # (Manual) Eosinophils # (Manual) Basophils # (Manual) Percent Retic PT INR Fibrinogen D-Dimer ABG pH POC ABG pCO2 POC ABG pO2 ABG pO2 ABG HCO3 ABG O2 Saturation ABG Base Excess ABG Hemoglobin ABG Oxyhemoglobin ABG Sodium ABG Potassium ABG Chloride ABG Glucose Oxyhemoglobin Carboxyhemoglobin Sodium 136 L 136 L Potassium 6.2 H* D 5.4 H Chloride Carbon Dioxide 21 L 21 L BUN Creatinine 1.5 H D 1.8 H Glucose 144 H 141 H POC Glucose 147 H Hemoglobin A1c Calcium Phosphorus Magnesium AST ALT Alkaline Phosphatase Lactate Dehydrogenase C-Reactive Protein Total Protein 8.7 H 9.2 H Albumin 3.8 L Triglycerides Arterial Blood Glucose Arterial Blood Ionized Calcium Urine WBC (Auto) U Epithel Cells (Auto) Urine Creatinine Random Vancomycin Coronavirus (PCR) Crossmatch 03/14/21 03/14/21 03/14/21 17:29 17:50 18:35 WBC RBC Hgb Hct MCH MCHC RDW Plt Count Lymph % (Auto) [place] # (Auto) Eos # (Auto) Seg Neutrophils % Lymphocytes % (Manual) Eosinophils % (Manual) Basophils % (Manual) Nucleated RBC % Seg Neutrophils # Seg Neutrophils # Man Lymphocytes # (Manual) Monocytes # (Manual) Eosinophils # (Manual) Basophils # (Manual) Percent Retic PT INR Fibrinogen D-Dimer ABG pH POC ABG pCO2 POC ABG pO2 ABG pO2 ABG HCO3 ABG O2 Saturation ABG Base Excess ABG Hemoglobin ABG Oxyhemoglobin ABG Sodium ABG Potassium ABG Chloride ABG Glucose Oxyhemoglobin Carboxyhemoglobin Sodium 135 L Potassium 6.4 H* Chloride Carbon Dioxide 15 L BUN 26 H Creatinine 3.4 H D Glucose 165 H POC Glucose 209 H Hemoglobin A1c Calcium Phosphorus Magnesium AST ALT Alkaline Phosphatase Lactate Dehydrogenase C-Reactive Protein Total Protein Albumin Triglycerides Arterial Blood Glucose Arterial Blood Ionized Calcium Urine WBC (Auto) U Epithel Cells (Auto) Urine Creatinine 40.1 H Random Vancomycin Coronavirus (PCR) Crossmatch 03/14/21 03/14/21 03/14/21 18:46 22:23 23:52 WBC RBC Hgb Hct MCH MCHC RDW Plt Count Lymph % (Auto) [place] # (Auto) Eos # (Auto) Seg Neutrophils % Lymphocytes % (Manual) Eosinophils % (Manual) Basophils % (Manual) Nucleated RBC % Seg Neutrophils # Seg Neutrophils # Man Lymphocytes # (Manual) Monocytes # (Manual) Eosinophils # (Manual) Basophils # (Manual) Percent Retic PT INR Fibrinogen D-Dimer ABG pH 7.270 L POC ABG pCO2 POC ABG pO2 63.4 L ABG pO2 ABG HCO3 ABG O2 Saturation ABG Base Excess ABG Hemoglobin ABG Oxyhemoglobin 90.2 L ABG Sodium 134.9 L ABG Potassium 5.3 H ABG Chloride ABG Glucose 134 H Oxyhemoglobin Carboxyhemoglobin Sodium 136 L Potassium 5.2 H Chloride Carbon Dioxide 20 L BUN 29 H Creatinine 3.6 H Glucose 236 H POC Glucose 128 H Hemoglobin A1c Calcium Phosphorus Magnesium AST ALT Alkaline Phosphatase Lactate Dehydrogenase C-Reactive Protein Total Protein Albumin 3.2 L Triglycerides Arterial Blood Glucose 134 H Arterial Blood Ionized Calcium Urine WBC (Auto) U Epithel Cells (Auto) Urine Creatinine Random Vancomycin Coronavirus (PCR) Crossmatch 03/14/21 03/15/21 03/15/21 Unknown 05:00 05:09 WBC 22.5 H RBC Hgb Hct MCH 27 L MCHC RDW 17.6 H Plt Count Lymph % (Auto) [place] # (Auto) Eos # (Auto) Seg Neutrophils % Lymphocytes % (Manual) Eosinophils % (Manual) Basophils % (Manual) Nucleated RBC % Seg Neutrophils # Seg Neutrophils # Man Lymphocytes # (Manual) Monocytes # (Manual) Eosinophils # (Manual) Basophils # (Manual) Percent Retic PT INR Fibrinogen D-Dimer ABG pH POC ABG pCO2 POC ABG pO2 ABG pO2 ABG HCO3 ABG O2 Saturation ABG Base Excess ABG Hemoglobin ABG Oxyhemoglobin ABG Sodium ABG Potassium ABG Chloride ABG Glucose Oxyhemoglobin Carboxyhemoglobin Sodium Potassium Chloride Carbon Dioxide BUN Creatinine Glucose POC Glucose 116 H Hemoglobin A1c Calcium Phosphorus Magnesium AST ALT Alkaline Phosphatase Lactate Dehydrogenase C-Reactive Protein Total Protein Albumin Triglycerides Arterial Blood Glucose Arterial Blood Ionized Calcium Urine WBC (Auto) U Epithel Cells (Auto) Urine Creatinine Random Vancomycin Coronavirus (PCR) Positive A Crossmatch 03/15/21 03/15/21 03/15/21 05:09 05:09 05:09 WBC RBC Hgb Hct MCH MCHC RDW Plt Count Lymph % (Auto) [place] # (Auto) Eos # (Auto) Seg Neutrophils % Lymphocytes % (Manual) Eosinophils % (Manual) Basophils % (Manual) Nucleated RBC % Seg Neutrophils # Seg Neutrophils # Man Lymphocytes # (Manual) Monocytes # (Manual) Eosinophils # (Manual) Basophils # (Manual) Percent Retic PT INR Fibrinogen D-Dimer ABG pH POC ABG pCO2 POC ABG pO2 ABG pO2 ABG HCO3 ABG O2 Saturation ABG Base Excess ABG Hemoglobin ABG Oxyhemoglobin ABG Sodium ABG Potassium ABG Chloride ABG Glucose Oxyhemoglobin Carboxyhemoglobin Sodium 136 L Potassium 6.5 H* D Chloride Carbon Dioxide 17 L BUN 41 H Creatinine 5.3 H Glucose 128 H POC Glucose Hemoglobin A1c 6.3 H Calcium Phosphorus Magnesium AST ALT Alkaline Phosphatase Lactate Dehydrogenase C-Reactive Protein 12.10 H Total Protein Albumin 3.1 L Triglycerides Arterial Blood Glucose Arterial Blood Ionized Calcium Urine WBC (Auto) U Epithel Cells (Auto) Urine Creatinine Random Vancomycin Coronavirus (PCR) Crossmatch 03/15/21 03/15/21 03/15/21 10:00 21:50 23:39 WBC RBC Hgb Hct MCH MCHC RDW Plt Count Lymph % (Auto) [place] # (Auto) Eos # (Auto) Seg Neutrophils % Lymphocytes % (Manual) Eosinophils % (Manual) Basophils % (Manual) Nucleated RBC % Seg Neutrophils # Seg Neutrophils # Man Lymphocytes # (Manual) Monocytes # (Manual) Eosinophils # (Manual) Basophils # (Manual) Percent Retic PT INR Fibrinogen D-Dimer ABG pH 7.098 L POC ABG pCO2 72.7 H POC ABG pO2 ABG pO2 162.5 H ABG HCO3 ABG O2 Saturation ABG Base Excess ABG Hemoglobin 10.1 L ABG Oxyhemoglobin ABG Sodium ABG Potassium 5.7 H ABG Chloride ABG Glucose Oxyhemoglobin Carboxyhemoglobin 0.4 L Sodium Potassium Chloride Carbon Dioxide BUN Creatinine Glucose POC Glucose 156 H Hemoglobin A1c Calcium Phosphorus Magnesium AST ALT Alkaline Phosphatase Lactate Dehydrogenase C-Reactive Protein Total Protein Albumin Triglycerides Arterial Blood Glucose Arterial Blood Ionized Calcium Urine WBC (Auto) U Epithel Cells (Auto) Urine Creatinine Random Vancomycin Coronavirus (PCR) Crossmatch 03/16/21 03/16/21 03/16/21 05:00 05:30 05:30 WBC 16.7 H RBC 3.59 L Hgb 9.6 L Hct 30.1 L MCH 27 L MCHC RDW 17.5 H Plt Count Lymph % (Auto) [place] # (Auto) Eos # (Auto) Seg Neutrophils % Lymphocytes % (Manual) Eosinophils % (Manual) Basophils % (Manual) Nucleated RBC % Seg Neutrophils # Seg Neutrophils # Man Lymphocytes # (Manual) Monocytes # (Manual) Eosinophils # (Manual) Basophils # (Manual) Percent Retic PT INR Fibrinogen D-Dimer ABG pH POC ABG pCO2 POC ABG pO2 ABG pO2 ABG HCO3 ABG O2 Saturation ABG Base Excess ABG Hemoglobin ABG Oxyhemoglobin ABG Sodium ABG Potassium ABG Chloride ABG Glucose Oxyhemoglobin Carboxyhemoglobin Sodium Potassium Chloride Carbon Dioxide BUN 46 H Creatinine 6.2 H Glucose 131 H POC Glucose Hemoglobin A1c Calcium Phosphorus 6.00 H D Magnesium AST ALT Alkaline Phosphatase Lactate Dehydrogenase 318 H C-Reactive Protein 18.60 H Total Protein Albumin 3.0 L Triglycerides Arterial Blood Glucose Arterial Blood Ionized Calcium Urine WBC (Auto) U Epithel Cells (Auto) Urine Creatinine Random Vancomycin Coronavirus (PCR) Crossmatch 03/16/21 03/16/21 03/16/21 05:51 06:37 08:58 WBC RBC Hgb Hct MCH MCHC RDW Plt Count Lymph % (Auto) [place] # (Auto) Eos # (Auto) Seg Neutrophils % Lymphocytes % (Manual) Eosinophils % (Manual) Basophils % (Manual) Nucleated RBC % Seg Neutrophils # Seg Neutrophils # Man Lymphocytes # (Manual) Monocytes # (Manual) Eosinophils # (Manual) Basophils # (Manual) Percent Retic PT INR Fibrinogen D-Dimer 3041.12 H ABG pH POC ABG pCO2 POC ABG pO2 ABG pO2 141.5 H ABG HCO3 ABG O2 Saturation ABG Base Excess ABG Hemoglobin 9.7 L ABG Oxyhemoglobin ABG Sodium ABG Potassium ABG Chloride ABG Glucose Oxyhemoglobin Carboxyhemoglobin Sodium Potassium Chloride Carbon Dioxide BUN Creatinine Glucose POC Glucose 126 H Hemoglobin A1c Calcium Phosphorus Magnesium AST ALT Alkaline Phosphatase Lactate Dehydrogenase C-Reactive Protein Total Protein Albumin Triglycerides Arterial Blood Glucose Arterial Blood Ionized Calcium Urine WBC (Auto) U Epithel Cells (Auto) Urine Creatinine Random Vancomycin Coronavirus (PCR) Crossmatch 03/16/21 03/16/21 03/16/21 12:11 16:51 21:00 WBC RBC Hgb Hct MCH MCHC RDW Plt Count Lymph % (Auto) [place] # (Auto) Eos # (Auto) Seg Neutrophils % Lymphocytes % (Manual) Eosinophils % (Manual) Basophils % (Manual) Nucleated RBC % Seg Neutrophils # Seg Neutrophils # Man Lymphocytes # (Manual) Monocytes # (Manual) Eosinophils # (Manual) Basophils # (Manual) Percent Retic PT INR Fibrinogen D-Dimer ABG pH 7.239 L POC ABG pCO2 61.5 H POC ABG pO2 80.8 L ABG pO2 ABG HCO3 ABG O2 Saturation ABG Base Excess ABG Hemoglobin 11.4 L ABG Oxyhemoglobin 93.5 L ABG Sodium ABG Potassium 5.4 H ABG Chloride ABG Glucose 137 H Oxyhemoglobin Carboxyhemoglobin 0.2 L Sodium Potassium Chloride Carbon Dioxide BUN Creatinine Glucose POC Glucose 156 H 133 H Hemoglobin A1c Calcium Phosphorus Magnesium AST ALT Alkaline Phosphatase Lactate Dehydrogenase C-Reactive Protein Total Protein Albumin Triglycerides Arterial Blood Glucose 137 H Arterial Blood Ionized Calcium Urine WBC (Auto) U Epithel Cells (Auto) Urine Creatinine Random Vancomycin Coronavirus (PCR) Crossmatch 03/16/21 03/17/21 03/17/21 23:42 05:23 05:23 WBC 18.4 H RBC Hgb Hct MCH 27 L MCHC RDW 17.4 H Plt Count Lymph % (Auto) [place] # (Auto) Eos # (Auto) Seg Neutrophils % Lymphocytes % (Manual) Eosinophils % (Manual) Basophils % (Manual) Nucleated RBC % Seg Neutrophils # Seg Neutrophils # Man Lymphocytes # (Manual) Monocytes # (Manual) Eosinophils # (Manual) Basophils # (Manual) Percent Retic PT INR Fibrinogen D-Dimer ABG pH POC ABG pCO2 POC ABG pO2 ABG pO2 ABG HCO3 ABG O2 Saturation ABG Base Excess ABG Hemoglobin ABG Oxyhemoglobin ABG Sodium ABG Potassium ABG Chloride ABG Glucose Oxyhemoglobin Carboxyhemoglobin Sodium Potassium 5.2 H Chloride Carbon Dioxide 21 L BUN 79 H Creatinine 8.6 H Glucose 124 H POC Glucose 133 H Hemoglobin A1c Calcium Phosphorus Magnesium AST ALT Alkaline Phosphatase Lactate Dehydrogenase C-Reactive Protein Total Protein Albumin 3.2 L Triglycerides 285 H Arterial Blood Glucose Arterial Blood Ionized Calcium Urine WBC (Auto) U Epithel Cells (Auto) Urine Creatinine Random Vancomycin Coronavirus (PCR) Crossmatch 03/17/21 03/17/21 03/17/21 05:23 10:48 12:20 WBC RBC Hgb Hct MCH MCHC RDW Plt Count Lymph % (Auto) [place] # (Auto) Eos # (Auto) Seg Neutrophils % Lymphocytes % (Manual) Eosinophils % (Manual) Basophils % (Manual) Nucleated RBC % Seg Neutrophils # Seg Neutrophils # Man Lymphocytes # (Manual) Monocytes # (Manual) Eosinophils # (Manual) Basophils # (Manual) Percent Retic PT INR Fibrinogen D-Dimer ABG pH 7.294 L POC ABG pCO2 POC ABG pO2 ABG pO2 90.3 H ABG HCO3 ABG O2 Saturation ABG Base Excess ABG Hemoglobin 9.9 L ABG Oxyhemoglobin ABG Sodium ABG Potassium ABG Chloride ABG Glucose Oxyhemoglobin Carboxyhemoglobin Sodium Potassium 5.2 H Chloride Carbon Dioxide 21 L BUN 79 H Creatinine 8.4 H Glucose 125 H POC Glucose 171 H Hemoglobin A1c Calcium Phosphorus 9.90 H D Magnesium 2.40 H AST ALT Alkaline Phosphatase Lactate Dehydrogenase C-Reactive Protein Total Protein Albumin Triglycerides Arterial Blood Glucose Arterial Blood Ionized Calcium Urine WBC (Auto) U Epithel Cells (Auto) Urine Creatinine Random Vancomycin Coronavirus (PCR) Crossmatch 03/17/21 03/17/21 03/18/21 17:24 21:00 04:30 WBC RBC Hgb Hct MCH MCHC RDW Plt Count Lymph % (Auto) [place] # (Auto) Eos # (Auto) Seg Neutrophils % Lymphocytes % (Manual) Eosinophils % (Manual) Basophils % (Manual) Nucleated RBC % Seg Neutrophils # Seg Neutrophils # Man Lymphocytes # (Manual) Monocytes # (Manual) Eosinophils # (Manual) Basophils # (Manual) Percent Retic PT INR Fibrinogen D-Dimer 9953.09 H ABG pH 7.310 L POC ABG pCO2 54.5 H POC ABG pO2 62.3 L ABG pO2 ABG HCO3 ABG O2 Saturation ABG Base Excess ABG Hemoglobin 10.2 L ABG Oxyhemoglobin 88.6 L ABG Sodium ABG Potassium 4.7 H ABG Chloride ABG Glucose 99 H Oxyhemoglobin Carboxyhemoglobin 0.3 L Sodium Potassium Chloride Carbon Dioxide BUN Creatinine Glucose POC Glucose 121 H Hemoglobin A1c Calcium Phosphorus Magnesium AST ALT Alkaline Phosphatase Lactate Dehydrogenase C-Reactive Protein Total Protein Albumin Triglycerides Arterial Blood Glucose 99 H Arterial Blood Ionized Calcium 4.3 L Urine WBC (Auto) U Epithel Cells (Auto) Urine Creatinine Random Vancomycin Coronavirus (PCR) Crossmatch 03/18/21 03/18/21 03/18/21 04:30 04:30 11:34 WBC 12.8 H RBC 3.49 L Hgb 9.4 L Hct 29.3 L MCH 27 L MCHC RDW 17.4 H Plt Count Lymph % (Auto) [place] # (Auto) Eos # (Auto) Seg Neutrophils % Lymphocytes % (Manual) Eosinophils % (Manual) Basophils % (Manual) Nucleated RBC % Seg Neutrophils # Seg Neutrophils # Man Lymphocytes # (Manual) Monocytes # (Manual) Eosinophils # (Manual) Basophils # (Manual) Percent Retic PT INR Fibrinogen D-Dimer ABG pH POC ABG pCO2 POC ABG pO2 ABG pO2 ABG HCO3 ABG O2 Saturation ABG Base Excess ABG Hemoglobin ABG Oxyhemoglobin ABG Sodium ABG Potassium ABG Chloride ABG Glucose Oxyhemoglobin Carboxyhemoglobin Sodium Potassium Chloride Carbon Dioxide BUN 69 H Creatinine 7.3 H Glucose POC Glucose 114 H Hemoglobin A1c Calcium 8.2 L Phosphorus 7.60 H D Magnesium AST ALT Alkaline Phosphatase Lactate Dehydrogenase 477 H C-Reactive Protein 6.90 H Total Protein Albumin Triglycerides Arterial Blood Glucose Arterial Blood Ionized Calcium Urine WBC (Auto) U Epithel Cells (Auto) Urine Creatinine Random Vancomycin Coronavirus (PCR) Crossmatch 03/18/21 03/19/21 03/19/21 21:44 04:13 04:13 WBC 13.7 H RBC 3.32 L Hgb 9.0 L Hct 28.1 L MCH 27 L MCHC RDW 16.9 H Plt Count Lymph % (Auto) [place] # (Auto) Eos # (Auto) Seg Neutrophils % Lymphocytes % (Manual) Eosinophils % (Manual) Basophils % (Manual) Nucleated RBC % Seg Neutrophils # Seg Neutrophils # Man Lymphocytes # (Manual) Monocytes # (Manual) Eosinophils # (Manual) Basophils # (Manual) Percent Retic PT INR Fibrinogen D-Dimer ABG pH 7.290 L POC ABG pCO2 POC ABG pO2 ABG pO2 119.7 H ABG HCO3 28.0 H ABG O2 Saturation ABG Base Excess ABG Hemoglobin 9.6 L ABG Oxyhemoglobin ABG Sodium ABG Potassium ABG Chloride ABG Glucose Oxyhemoglobin Carboxyhemoglobin Sodium Potassium Chloride Carbon Dioxide BUN Creatinine Glucose POC Glucose Hemoglobin A1c Calcium Phosphorus Magnesium AST ALT Alkaline Phosphatase Lactate Dehydrogenase C-Reactive Protein Total Protein Albumin Triglycerides Arterial Blood Glucose Arterial Blood Ionized Calcium Urine WBC (Auto) U Epithel Cells (Auto) Urine Creatinine Random Vancomycin 43.5 H Coronavirus (PCR) Crossmatch 03/19/21 03/19/21 03/19/21 04:13 05:59 11:40 WBC RBC Hgb Hct MCH MCHC RDW Plt Count Lymph % (Auto) [place] # (Auto) Eos # (Auto) Seg Neutrophils % Lymphocytes % (Manual) Eosinophils % (Manual) Basophils % (Manual) Nucleated RBC % Seg Neutrophils # Seg Neutrophils # Man Lymphocytes # (Manual) Monocytes # (Manual) Eosinophils # (Manual) Basophils # (Manual) Percent Retic PT INR Fibrinogen D-Dimer ABG pH POC ABG pCO2 POC ABG pO2 ABG pO2 ABG HCO3 ABG O2 Saturation ABG Base Excess ABG Hemoglobin ABG Oxyhemoglobin ABG Sodium ABG Potassium ABG Chloride ABG Glucose Oxyhemoglobin Carboxyhemoglobin Sodium Potassium Chloride Carbon Dioxide BUN 55 H Creatinine 7.0 H Glucose POC Glucose 116 H 145 H Hemoglobin A1c Calcium 8.1 L Phosphorus 7.90 H Magnesium AST ALT Alkaline Phosphatase Lactate Dehydrogenase C-Reactive Protein Total Protein Albumin Triglycerides Arterial Blood Glucose Arterial Blood Ionized Calcium Urine WBC (Auto) U Epithel Cells (Auto) Urine Creatinine Random Vancomycin Coronavirus (PCR) Crossmatch 03/19/21 03/19/21 03/20/21 17:01 23:41 04:00 WBC 15.6 H RBC 3.55 L Hgb 9.6 L Hct MCH 27 L MCHC RDW 16.8 H Plt Count 139 L Lymph % (Auto) [place] # (Auto) Eos # (Auto) Seg Neutrophils % Lymphocytes % (Manual) Eosinophils % (Manual) Basophils % (Manual) Nucleated RBC % Seg Neutrophils # Seg Neutrophils # Man Lymphocytes # (Manual) Monocytes # (Manual) Eosinophils # (Manual) Basophils # (Manual) Percent Retic PT INR Fibrinogen D-Dimer ABG pH POC ABG pCO2 POC ABG pO2 ABG pO2 ABG HCO3 ABG O2 Saturation ABG Base Excess ABG Hemoglobin ABG Oxyhemoglobin ABG Sodium ABG Potassium ABG Chloride ABG Glucose Oxyhemoglobin Carboxyhemoglobin Sodium Potassium Chloride Carbon Dioxide BUN Creatinine Glucose POC Glucose 111 H 118 H Hemoglobin A1c Calcium Phosphorus Magnesium AST ALT Alkaline Phosphatase Lactate Dehydrogenase C-Reactive Protein Total Protein Albumin Triglycerides Arterial Blood Glucose Arterial Blood Ionized Calcium Urine WBC (Auto) U Epithel Cells (Auto) Urine Creatinine Random Vancomycin Coronavirus (PCR) Crossmatch 03/20/21 03/20/21 03/20/21 04:00 04:00 04:37 WBC RBC Hgb Hct MCH MCHC RDW Plt Count Lymph % (Auto) [place] # (Auto) Eos # (Auto) Seg Neutrophils % Lymphocytes % (Manual) Eosinophils % (Manual) Basophils % (Manual) Nucleated RBC % Seg Neutrophils # Seg Neutrophils # Man Lymphocytes # (Manual) Monocytes # (Manual) Eosinophils # (Manual) Basophils # (Manual) Percent Retic PT INR Fibrinogen D-Dimer > 64148 H ABG pH 7.306 L POC ABG pCO2 POC ABG pO2 ABG pO2 ABG HCO3 27.9 H ABG O2 Saturation ABG Base Excess ABG Hemoglobin 5.2 L ABG Oxyhemoglobin ABG Sodium ABG Potassium ABG Chloride ABG Glucose Oxyhemoglobin Carboxyhemoglobin Sodium Potassium 5.2 H Chloride 97.6 L Carbon Dioxide BUN 52 H Creatinine 6.2 H Glucose 104 H POC Glucose Hemoglobin A1c Calcium Phosphorus 8.60 H Magnesium AST ALT Alkaline Phosphatase Lactate Dehydrogenase C-Reactive Protein 6.90 H Total Protein Albumin Triglycerides Arterial Blood Glucose Arterial Blood Ionized Calcium Urine WBC (Auto) U Epithel Cells (Auto) Urine Creatinine Random Vancomycin Coronavirus (PCR) Crossmatch 03/20/21 03/20/21 03/20/21 13:50 17:46 17:56 WBC RBC Hgb Hct MCH MCHC RDW Plt Count Lymph % (Auto) [place] # (Auto) Eos # (Auto) Seg Neutrophils % Lymphocytes % (Manual) Eosinophils % (Manual) Basophils % (Manual) Nucleated RBC % Seg Neutrophils # Seg Neutrophils # Man Lymphocytes # (Manual) Monocytes # (Manual) Eosinophils # (Manual) Basophils # (Manual) Percent Retic PT INR Fibrinogen D-Dimer ABG pH POC ABG pCO2 POC ABG pO2 ABG pO2 ABG HCO3 ABG O2 Saturation ABG Base Excess ABG Hemoglobin ABG Oxyhemoglobin ABG Sodium ABG Potassium ABG Chloride ABG Glucose Oxyhemoglobin Carboxyhemoglobin Sodium Potassium Chloride Carbon Dioxide BUN 63 H 43 H Creatinine Glucose POC Glucose 145 H Hemoglobin A1c Calcium Phosphorus Magnesium AST ALT Alkaline Phosphatase Lactate Dehydrogenase C-Reactive Protein Total Protein Albumin Triglycerides Arterial Blood Glucose Arterial Blood Ionized Calcium Urine WBC (Auto) U Epithel Cells (Auto) Urine Creatinine Random Vancomycin Coronavirus (PCR) Crossmatch 03/20/21 03/21/21 03/21/21 23:18 06:58 06:58 WBC 14.4 H RBC 3.41 L Hgb 9.5 L Hct 28.6 L MCH MCHC RDW 17.4 H Plt Count 107 L Lymph % (Auto) [place] # (Auto) Eos # (Auto) Seg Neutrophils % Lymphocytes % (Manual) Eosinophils % (Manual) Basophils % (Manual) Nucleated RBC % Seg Neutrophils # Seg Neutrophils # Man Lymphocytes # (Manual) Monocytes # (Manual) Eosinophils # (Manual) Basophils # (Manual) Percent Retic PT INR Fibrinogen D-Dimer ABG pH POC ABG pCO2 POC ABG pO2 ABG pO2 ABG HCO3 ABG O2 Saturation ABG Base Excess ABG Hemoglobin ABG Oxyhemoglobin ABG Sodium ABG Potassium ABG Chloride ABG Glucose Oxyhemoglobin Carboxyhemoglobin Sodium Potassium Chloride Carbon Dioxide BUN 60 H Creatinine 7.7 H Glucose POC Glucose 106 H Hemoglobin A1c Calcium Phosphorus Magnesium AST ALT Alkaline Phosphatase Lactate Dehydrogenase C-Reactive Protein Total Protein Albumin Triglycerides Arterial Blood Glucose Arterial Blood Ionized Calcium Urine WBC (Auto) U Epithel Cells (Auto) Urine Creatinine Random Vancomycin Coronavirus (PCR) Crossmatch 03/21/21 03/21/21 03/21/21 11:11 18:04 Unknown WBC RBC Hgb Hct MCH MCHC RDW Plt Count Lymph % (Auto) [place] # (Auto) Eos # (Auto) Seg Neutrophils % Lymphocytes % (Manual) Eosinophils % (Manual) Basophils % (Manual) Nucleated RBC % Seg Neutrophils # Seg Neutrophils # Man Lymphocytes # (Manual) Monocytes # (Manual) Eosinophils # (Manual) Basophils # (Manual) Percent Retic PT INR Fibrinogen D-Dimer ABG pH 7.270 L POC ABG pCO2 58.7 H POC ABG pO2 76.9 L ABG pO2 ABG HCO3 ABG O2 Saturation ABG Base Excess ABG Hemoglobin 9.9 L ABG Oxyhemoglobin 92.4 L ABG Sodium 135.8 L ABG Potassium 4.6 H ABG Chloride ABG Glucose Oxyhemoglobin Carboxyhemoglobin 0.1 L Sodium Potassium Chloride Carbon Dioxide BUN Creatinine Glucose POC Glucose 109 H 141 H Hemoglobin A1c Calcium Phosphorus Magnesium AST ALT Alkaline Phosphatase Lactate Dehydrogenase C-Reactive Protein Total Protein Albumin Triglycerides Arterial Blood Glucose Arterial Blood Ionized Calcium 4.5 L Urine WBC (Auto) U Epithel Cells (Auto) Urine Creatinine Random Vancomycin Coronavirus (PCR) Crossmatch 03/22/21 03/22/21 03/22/21 03:09 07:10 10:00 WBC RBC Hgb Hct MCH MCHC RDW Plt Count Lymph % (Auto) [place] # (Auto) Eos # (Auto) Seg Neutrophils % Lymphocytes % (Manual) Eosinophils % (Manual) Basophils % (Manual) Nucleated RBC % Seg Neutrophils # Seg Neutrophils # Man Lymphocytes # (Manual) Monocytes # (Manual) Eosinophils # (Manual) Basophils # (Manual) Percent Retic PT INR Fibrinogen D-Dimer ABG pH 7.206 L 7.245 L POC ABG pCO2 55.6 H POC ABG pO2 ABG pO2 90.6 H ABG HCO3 ABG O2 Saturation ABG Base Excess -4.4 L ABG Hemoglobin 9.0 L 8.4 L ABG Oxyhemoglobin ABG Sodium 123.4 L ABG Potassium 5.6 H ABG Chloride ABG Glucose 106 H Oxyhemoglobin 94.5 L Carboxyhemoglobin 0.1 L Sodium Potassium 5.4 H Chloride 96.8 L Carbon Dioxide BUN 89 H Creatinine 8.7 H Glucose 131 H POC Glucose Hemoglobin A1c Calcium Phosphorus Magnesium AST ALT Alkaline Phosphatase Lactate Dehydrogenase C-Reactive Protein 9.40 H Total Protein Albumin Triglycerides Arterial Blood Glucose 106 H Arterial Blood Ionized Calcium Urine WBC (Auto) U Epithel Cells (Auto) Urine Creatinine Random Vancomycin Coronavirus (PCR) Crossmatch 03/22/21 03/22/21 03/22/21 10:00 12:37 13:19 WBC RBC 3.05 L Hgb 8.4 L Hct 25.5 L MCH MCHC RDW 17.5 H Plt Count 108 L Lymph % (Auto) [place] # (Auto) Eos # (Auto) Seg Neutrophils % Lymphocytes % (Manual) Eosinophils % (Manual) Basophils % (Manual) Nucleated RBC % Seg Neutrophils # Seg Neutrophils # Man Lymphocytes # (Manual) Monocytes # (Manual) Eosinophils # (Manual) Basophils # (Manual) Percent Retic PT INR Fibrinogen D-Dimer ABG pH POC ABG pCO2 POC ABG pO2 ABG pO2 ABG HCO3 ABG O2 Saturation ABG Base Excess ABG Hemoglobin ABG Oxyhemoglobin ABG Sodium ABG Potassium ABG Chloride ABG Glucose Oxyhemoglobin Carboxyhemoglobin Sodium Potassium Chloride Carbon Dioxide BUN Creatinine 8.7 H Glucose POC Glucose 140 H Hemoglobin A1c Calcium Phosphorus Magnesium AST ALT Alkaline Phosphatase Lactate Dehydrogenase C-Reactive Protein Total Protein Albumin Triglycerides Arterial Blood Glucose Arterial Blood Ionized Calcium Urine WBC (Auto) U Epithel Cells (Auto) Urine Creatinine Random Vancomycin Coronavirus (PCR) Crossmatch 03/22/21 03/22/21 03/22/21 13:40 17:14 18:21 WBC RBC Hgb Hct MCH MCHC RDW Plt Count Lymph % (Auto) [place] # (Auto) Eos # (Auto) Seg Neutrophils % Lymphocytes % (Manual) Eosinophils % (Manual) Basophils % (Manual) Nucleated RBC % Seg Neutrophils # Seg Neutrophils # Man Lymphocytes # (Manual) Monocytes # (Manual) Eosinophils # (Manual) Basophils # (Manual) Percent Retic PT 15.8 H INR 1.14 H Fibrinogen D-Dimer > 53670 H ABG pH POC ABG pCO2 POC ABG pO2 ABG pO2 ABG HCO3 ABG O2 Saturation ABG Base Excess ABG Hemoglobin ABG Oxyhemoglobin ABG Sodium ABG Potassium ABG Chloride ABG Glucose Oxyhemoglobin Carboxyhemoglobin Sodium Potassium Chloride Carbon Dioxide BUN Creatinine Glucose POC Glucose 117 H 112 H Hemoglobin A1c Calcium Phosphorus Magnesium AST ALT Alkaline Phosphatase Lactate Dehydrogenase C-Reactive Protein Total Protein Albumin Triglycerides Arterial Blood Glucose Arterial Blood Ionized Calcium Urine WBC (Auto) U Epithel Cells (Auto) Urine Creatinine Random Vancomycin Coronavirus (PCR) Crossmatch 03/22/21 03/22/21 03/23/21 21:25 22:57 04:30 WBC RBC Hgb Hct MCH MCHC RDW Plt Count Lymph % (Auto) [place] # (Auto) Eos # (Auto) Seg Neutrophils % Lymphocytes % (Manual) Eosinophils % (Manual) Basophils % (Manual) Nucleated RBC % Seg Neutrophils # Seg Neutrophils # Man Lymphocytes # (Manual) Monocytes # (Manual) Eosinophils # (Manual) Basophils # (Manual) Percent Retic PT INR Fibrinogen D-Dimer ABG pH 7.188 L* POC ABG pCO2 POC ABG pO2 ABG pO2 97.9 H ABG HCO3 ABG O2 Saturation ABG Base Excess -3.7 L ABG Hemoglobin 9.2 L ABG Oxyhemoglobin ABG Sodium ABG Potassium ABG Chloride ABG Glucose Oxyhemoglobin 94.4 L Carboxyhemoglobin Sodium Potassium Chloride Carbon Dioxide BUN Creatinine Glucose POC Glucose 106 H Hemoglobin A1c Calcium Phosphorus Magnesium AST ALT Alkaline Phosphatase Lactate Dehydrogenase C-Reactive Protein Total Protein Albumin Triglycerides 381 H Arterial Blood Glucose Arterial Blood Ionized Calcium Urine WBC (Auto) U Epithel Cells (Auto) Urine Creatinine Random Vancomycin Coronavirus (PCR) Crossmatch 03/23/21 03/23/21 03/23/21 04:30 04:30 05:37 WBC 20.1 H RBC 3.17 L Hgb 8.6 L Hct 27.2 L MCH 27 L MCHC RDW 17.4 H Plt Count 118 L Lymph % (Auto) [place] # (Auto) Eos # (Auto) Seg Neutrophils % Lymphocytes % (Manual) Eosinophils % (Manual) Basophils % (Manual) Nucleated RBC % Seg Neutrophils # Seg Neutrophils # Man Lymphocytes # (Manual) Monocytes # (Manual) Eosinophils # (Manual) Basophils # (Manual) Percent Retic PT INR Fibrinogen D-Dimer ABG pH POC ABG pCO2 POC ABG pO2 ABG pO2 ABG HCO3 ABG O2 Saturation ABG Base Excess ABG Hemoglobin ABG Oxyhemoglobin ABG Sodium ABG Potassium ABG Chloride ABG Glucose Oxyhemoglobin Carboxyhemoglobin Sodium Potassium 5.2 H Chloride 97.1 L Carbon Dioxide 21 L BUN 82 H Creatinine 9.1 H Glucose 109 H POC Glucose 130 H Hemoglobin A1c Calcium Phosphorus 10.80 H Magnesium 3.50 H AST ALT Alkaline Phosphatase Lactate Dehydrogenase C-Reactive Protein Total Protein Albumin Triglycerides Arterial Blood Glucose Arterial Blood Ionized Calcium Urine WBC (Auto) U Epithel Cells (Auto) Urine Creatinine Random Vancomycin Coronavirus (PCR) Crossmatch 03/23/21 03/23/21 03/23/21 08:44 11:30 16:09 WBC RBC Hgb Hct MCH MCHC RDW Plt Count Lymph % (Auto) [place] # (Auto) Eos # (Auto) Seg Neutrophils % Lymphocytes % (Manual) Eosinophils % (Manual) Basophils % (Manual) Nucleated RBC % Seg Neutrophils # Seg Neutrophils # Man Lymphocytes # (Manual) Monocytes # (Manual) Eosinophils # (Manual) Basophils # (Manual) Percent Retic PT INR Fibrinogen D-Dimer ABG pH 7.190 L POC ABG pCO2 57.9 H POC ABG pO2 79.2 L ABG pO2 ABG HCO3 ABG O2 Saturation ABG Base Excess ABG Hemoglobin 11.8 L ABG Oxyhemoglobin 92.3 L ABG Sodium 131.0 L ABG Potassium 5.0 H ABG Chloride ABG Glucose 122 H Oxyhemoglobin Carboxyhemoglobin 0.4 L Sodium Potassium Chloride Carbon Dioxide BUN Creatinine Glucose POC Glucose 129 H 148 H Hemoglobin A1c Calcium Phosphorus Magnesium AST ALT Alkaline Phosphatase Lactate Dehydrogenase C-Reactive Protein Total Protein Albumin Triglycerides Arterial Blood Glucose 122 H Arterial Blood Ionized Calcium 4.4 L Urine WBC (Auto) U Epithel Cells (Auto) Urine Creatinine Random Vancomycin Coronavirus (PCR) Crossmatch 03/23/21 03/24/21 03/24/21 21:00 03:35 04:00 WBC 17.8 H RBC 2.96 L Hgb 8.1 L Hct 25.0 L MCH 27 L MCHC RDW 17.7 H Plt Count 124 L Lymph % (Auto) [place] # (Auto) Eos # (Auto) Seg Neutrophils % Lymphocytes % (Manual) Eosinophils % (Manual) Basophils % (Manual) Nucleated RBC % Seg Neutrophils # Seg Neutrophils # Man Lymphocytes # (Manual) Monocytes # (Manual) Eosinophils # (Manual) Basophils # (Manual) Percent Retic PT INR Fibrinogen D-Dimer ABG pH 7.223 L POC ABG pCO2 50.3 H POC ABG pO2 114.4 H ABG pO2 ABG HCO3 ABG O2 Saturation ABG Base Excess ABG Hemoglobin 8.8 L ABG Oxyhemoglobin ABG Sodium 130.4 L ABG Potassium 5.1 H ABG Chloride ABG Glucose 126 H Oxyhemoglobin Carboxyhemoglobin 0.2 L Sodium Potassium Chloride Carbon Dioxide BUN Creatinine Glucose POC Glucose 148 H Hemoglobin A1c Calcium Phosphorus Magnesium AST ALT Alkaline Phosphatase Lactate Dehydrogenase C-Reactive Protein Total Protein Albumin Triglycerides Arterial Blood Glucose 126 H Arterial Blood Ionized Calcium 4.4 L Urine WBC (Auto) U Epithel Cells (Auto) Urine Creatinine Random Vancomycin Coronavirus (PCR) Crossmatch 03/24/21 03/24/21 03/24/21 04:00 06:49 12:29 WBC RBC Hgb Hct MCH MCHC RDW Plt Count Lymph % (Auto) [place] # (Auto) Eos # (Auto) Seg Neutrophils % Lymphocytes % (Manual) Eosinophils % (Manual) Basophils % (Manual) Nucleated RBC % Seg Neutrophils # Seg Neutrophils # Man Lymphocytes # (Manual) Monocytes # (Manual) Eosinophils # (Manual) Basophils # (Manual) Percent Retic PT INR Fibrinogen D-Dimer ABG pH POC ABG pCO2 POC ABG pO2 ABG pO2 ABG HCO3 ABG O2 Saturation ABG Base Excess ABG Hemoglobin ABG Oxyhemoglobin ABG Sodium ABG Potassium ABG Chloride ABG Glucose Oxyhemoglobin Carboxyhemoglobin Sodium Potassium Chloride 95.6 L Carbon Dioxide 20 L BUN 108 H Creatinine 10.8 H Glucose 155 H POC Glucose 136 H 142 H Hemoglobin A1c Calcium Phosphorus Magnesium AST ALT Alkaline Phosphatase Lactate Dehydrogenase C-Reactive Protein Total Protein Albumin Triglycerides Arterial Blood Glucose Arterial Blood Ionized Calcium Urine WBC (Auto) U Epithel Cells (Auto) Urine Creatinine Random Vancomycin Coronavirus (PCR) Crossmatch 03/24/21 03/25/21 03/25/21 21:35 00:15 05:51 WBC RBC Hgb Hct MCH MCHC RDW Plt Count Lymph % (Auto) [place] # (Auto) Eos # (Auto) Seg Neutrophils % Lymphocytes % (Manual) Eosinophils % (Manual) Basophils % (Manual) Nucleated RBC % Seg Neutrophils # Seg Neutrophils # Man Lymphocytes # (Manual) Monocytes # (Manual) Eosinophils # (Manual) Basophils # (Manual) Percent Retic PT INR Fibrinogen D-Dimer ABG pH 7.241 L POC ABG pCO2 POC ABG pO2 ABG pO2 72.4 L ABG HCO3 ABG O2 Saturation 90.3 L ABG Base Excess ABG Hemoglobin 7.9 L ABG Oxyhemoglobin ABG Sodium ABG Potassium ABG Chloride ABG Glucose Oxyhemoglobin 88.4 L Carboxyhemoglobin Sodium Potassium Chloride Carbon Dioxide BUN Creatinine Glucose POC Glucose 110 H 121 H Hemoglobin A1c Calcium Phosphorus Magnesium AST ALT Alkaline Phosphatase Lactate Dehydrogenase C-Reactive Protein Total Protein Albumin Triglycerides Arterial Blood Glucose Arterial Blood Ionized Calcium Urine WBC (Auto) U Epithel Cells (Auto) Urine Creatinine Random Vancomycin Coronavirus (PCR) Crossmatch 03/25/21 03/25/21 03/25/21 05:54 05:54 12:21 WBC 12.4 H RBC 2.52 L Hgb 6.9 L Hct 21.1 L MCH MCHC RDW 17.4 H Plt Count 102 L Lymph % (Auto) [place] # (Auto) Eos # (Auto) Seg Neutrophils % Lymphocytes % (Manual) Eosinophils % (Manual) Basophils % (Manual) Nucleated RBC % Seg Neutrophils # Seg Neutrophils # Man Lymphocytes # (Manual) Monocytes # (Manual) Eosinophils # (Manual) Basophils # (Manual) Percent Retic PT INR Fibrinogen D-Dimer ABG pH POC ABG pCO2 POC ABG pO2 ABG pO2 ABG HCO3 ABG O2 Saturation ABG Base Excess ABG Hemoglobin ABG Oxyhemoglobin ABG Sodium ABG Potassium ABG Chloride ABG Glucose Oxyhemoglobin Carboxyhemoglobin Sodium Potassium Chloride 96.7 L Carbon Dioxide BUN 81 H Creatinine 8.1 H Glucose 116 H POC Glucose 138 H Hemoglobin A1c Calcium 8.2 L Phosphorus Magnesium AST ALT Alkaline Phosphatase Lactate Dehydrogenase C-Reactive Protein Total Protein Albumin Triglycerides Arterial Blood Glucose Arterial Blood Ionized Calcium Urine WBC (Auto) U Epithel Cells (Auto) Urine Creatinine Random Vancomycin Coronavirus (PCR) Crossmatch 03/25/21 03/25/21 03/25/21 13:45 17:32 21:30 WBC RBC Hgb Hct MCH MCHC RDW Plt Count Lymph % (Auto) [place] # (Auto) Eos # (Auto) Seg Neutrophils % Lymphocytes % (Manual) Eosinophils % (Manual) Basophils % (Manual) Nucleated RBC % Seg Neutrophils # Seg Neutrophils # Man Lymphocytes # (Manual) Monocytes # (Manual) Eosinophils # (Manual) Basophils # (Manual) Percent Retic PT INR Fibrinogen D-Dimer ABG pH POC ABG pCO2 POC ABG pO2 ABG pO2 70.2 L ABG HCO3 ABG O2 Saturation ABG Base Excess ABG Hemoglobin 6.8 L ABG Oxyhemoglobin ABG Sodium ABG Potassium ABG Chloride ABG Glucose Oxyhemoglobin 94.5 L Carboxyhemoglobin Sodium Potassium Chloride Carbon Dioxide BUN Creatinine Glucose POC Glucose 110 H Hemoglobin A1c Calcium Phosphorus Magnesium AST ALT Alkaline Phosphatase Lactate Dehydrogenase C-Reactive Protein Total Protein Albumin Triglycerides Arterial Blood Glucose Arterial Blood Ionized Calcium Urine WBC (Auto) U Epithel Cells (Auto) Urine Creatinine Random Vancomycin Coronavirus (PCR) Crossmatch See Detail 03/25/21 03/25/21 03/26/21 23:29 Unknown 05:15 WBC 12.4 H 14.0 H RBC 2.49 L 2.83 L Hgb 6.8 L 7.6 L Hct 20.9 L 23.6 L MCH 27 L 27 L MCHC RDW 18.0 H 17.1 H Plt Count 107 L 116 L Lymph % (Auto) [place] # (Auto) Eos # (Auto) Seg Neutrophils % Lymphocytes % (Manual) Eosinophils % (Manual) Basophils % (Manual) Nucleated RBC % Seg Neutrophils # Seg Neutrophils # Man Lymphocytes # (Manual) Monocytes # (Manual) Eosinophils # (Manual) Basophils # (Manual) Percent Retic PT INR Fibrinogen D-Dimer ABG pH POC ABG pCO2 POC ABG pO2 ABG pO2 ABG HCO3 ABG O2 Saturation ABG Base Excess ABG Hemoglobin ABG Oxyhemoglobin ABG Sodium ABG Potassium ABG Chloride ABG Glucose Oxyhemoglobin Carboxyhemoglobin Sodium Potassium Chloride Carbon Dioxide BUN Creatinine Glucose POC Glucose 113 H Hemoglobin A1c Calcium Phosphorus Magnesium AST ALT Alkaline Phosphatase Lactate Dehydrogenase C-Reactive Protein Total Protein Albumin Triglycerides Arterial Blood Glucose Arterial Blood Ionized Calcium Urine WBC (Auto) U Epithel Cells (Auto) Urine Creatinine Random Vancomycin Coronavirus (PCR) Crossmatch 03/26/21 03/26/21 03/26/21 05:15 05:35 09:50 WBC RBC Hgb Hct MCH MCHC RDW Plt Count Lymph % (Auto) [place] # (Auto) Eos # (Auto) Seg Neutrophils % Lymphocytes % (Manual) Eosinophils % (Manual) Basophils % (Manual) Nucleated RBC % Seg Neutrophils # Seg Neutrophils # Man Lymphocytes # (Manual) Monocytes # (Manual) Eosinophils # (Manual) Basophils # (Manual) Percent Retic PT INR Fibrinogen D-Dimer ABG pH POC ABG pCO2 POC ABG pO2 ABG pO2 79.9 L ABG HCO3 ABG O2 Saturation ABG Base Excess ABG Hemoglobin 7.1 L ABG Oxyhemoglobin ABG Sodium ABG Potassium ABG Chloride ABG Glucose Oxyhemoglobin 94.9 L Carboxyhemoglobin Sodium Potassium 3.4 L Chloride Carbon Dioxide BUN 70 H Creatinine 7.3 H Glucose 142 H POC Glucose 130 H Hemoglobin A1c Calcium 8.2 L Phosphorus Magnesium AST ALT Alkaline Phosphatase Lactate Dehydrogenase C-Reactive Protein Total Protein Albumin Triglycerides 254 H Arterial Blood Glucose Arterial Blood Ionized Calcium Urine WBC (Auto) U Epithel Cells (Auto) Urine Creatinine Random Vancomycin Coronavirus (PCR) Crossmatch 03/26/21 03/26/21 03/26/21 11:45 16:36 23:33 WBC RBC Hgb Hct MCH MCHC RDW Plt Count Lymph % (Auto) [place] # (Auto) Eos # (Auto) Seg Neutrophils % Lymphocytes % (Manual) Eosinophils % (Manual) Basophils % (Manual) Nucleated RBC % Seg Neutrophils # Seg Neutrophils # Man Lymphocytes # (Manual) Monocytes # (Manual) Eosinophils # (Manual) Basophils # (Manual) Percent Retic PT INR Fibrinogen D-Dimer ABG pH POC ABG pCO2 POC ABG pO2 ABG pO2 ABG HCO3 ABG O2 Saturation ABG Base Excess ABG Hemoglobin ABG Oxyhemoglobin ABG Sodium ABG Potassium ABG Chloride ABG Glucose Oxyhemoglobin Carboxyhemoglobin Sodium Potassium Chloride Carbon Dioxide BUN Creatinine Glucose POC Glucose 123 H 121 H 120 H Hemoglobin A1c Calcium Phosphorus Magnesium AST ALT Alkaline Phosphatase Lactate Dehydrogenase C-Reactive Protein Total Protein Albumin Triglycerides Arterial Blood Glucose Arterial Blood Ionized Calcium Urine WBC (Auto) U Epithel Cells (Auto) Urine Creatinine Random Vancomycin Coronavirus (PCR) Crossmatch 03/27/21 03/27/21 03/27/21 03:20 04:14 08:20 WBC 13.2 H RBC 2.82 L Hgb 7.9 L Hct 23.5 L MCH MCHC RDW 17.3 H Plt Count 125 L Lymph % (Auto) [place] # (Auto) Eos # (Auto) Seg Neutrophils % Lymphocytes % (Manual) Eosinophils % (Manual) Basophils % (Manual) Nucleated RBC % Seg Neutrophils # Seg Neutrophils # Man Lymphocytes # (Manual) Monocytes # (Manual) Eosinophils # (Manual) Basophils # (Manual) Percent Retic PT INR Fibrinogen D-Dimer ABG pH POC ABG pCO2 50.0 H POC ABG pO2 58.3 L ABG pO2 ABG HCO3 ABG O2 Saturation ABG Base Excess ABG Hemoglobin 11.3 L ABG Oxyhemoglobin 88.5 L ABG Sodium ABG Potassium ABG Chloride ABG Glucose 132 H Oxyhemoglobin Carboxyhemoglobin 0.2 L Sodium Potassium Chloride Carbon Dioxide BUN Creatinine Glucose POC Glucose 119 H Hemoglobin A1c Calcium Phosphorus Magnesium AST ALT Alkaline Phosphatase Lactate Dehydrogenase C-Reactive Protein Total Protein Albumin Triglycerides Arterial Blood Glucose 132 H Arterial Blood Ionized Calcium Urine WBC (Auto) U Epithel Cells (Auto) Urine Creatinine Random Vancomycin Coronavirus (PCR) Crossmatch 03/27/21 03/27/21 03/27/21 08:20 11:39 17:32 WBC RBC Hgb Hct MCH MCHC RDW Plt Count Lymph % (Auto) [place] # (Auto) Eos # (Auto) Seg Neutrophils % Lymphocytes % (Manual) Eosinophils % (Manual) Basophils % (Manual) Nucleated RBC % Seg Neutrophils # Seg Neutrophils # Man Lymphocytes # (Manual) Monocytes # (Manual) Eosinophils # (Manual) Basophils # (Manual) Percent Retic PT INR Fibrinogen D-Dimer ABG pH POC ABG pCO2 POC ABG pO2 ABG pO2 ABG HCO3 ABG O2 Saturation ABG Base Excess ABG Hemoglobin ABG Oxyhemoglobin ABG Sodium ABG Potassium ABG Chloride ABG Glucose Oxyhemoglobin Carboxyhemoglobin Sodium Potassium Chloride Carbon Dioxide BUN 57 H Creatinine 6.8 H Glucose 131 H POC Glucose 121 H 126 H Hemoglobin A1c Calcium Phosphorus Magnesium AST ALT Alkaline Phosphatase Lactate Dehydrogenase C-Reactive Protein Total Protein Albumin Triglycerides Arterial Blood Glucose Arterial Blood Ionized Calcium Urine WBC (Auto) U Epithel Cells (Auto) Urine Creatinine Random Vancomycin Coronavirus (PCR) Crossmatch 03/28/21 03/28/21 03/28/21 00:10 04:45 05:25 WBC RBC Hgb Hct MCH MCHC RDW Plt Count Lymph % (Auto) [place] # (Auto) Eos # (Auto) Seg Neutrophils % Lymphocytes % (Manual) Eosinophils % (Manual) Basophils % (Manual) Nucleated RBC % Seg Neutrophils # Seg Neutrophils # Man Lymphocytes # (Manual) Monocytes # (Manual) Eosinophils # (Manual) Basophils # (Manual) Percent Retic PT INR Fibrinogen D-Dimer ABG pH POC ABG pCO2 POC ABG pO2 ABG pO2 57.6 L ABG HCO3 27.1 H ABG O2 Saturation 88.5 L ABG Base Excess ABG Hemoglobin ABG Oxyhemoglobin ABG Sodium ABG Potassium ABG Chloride ABG Glucose Oxyhemoglobin 86.6 L Carboxyhemoglobin Sodium Potassium Chloride Carbon Dioxide BUN Creatinine Glucose POC Glucose 113 H 121 H Hemoglobin A1c Calcium Phosphorus Magnesium AST ALT Alkaline Phosphatase Lactate Dehydrogenase C-Reactive Protein Total Protein Albumin Triglycerides Arterial Blood Glucose Arterial Blood Ionized Calcium Urine WBC (Auto) U Epithel Cells (Auto) Urine Creatinine Random Vancomycin Coronavirus (PCR) Crossmatch 03/28/21 03/28/21 03/28/21 09:37 09:37 11:48 WBC 16.3 H RBC 2.92 L Hgb 8.2 L Hct 24.8 L MCH MCHC RDW 17.5 H Plt Count Lymph % (Auto) 10.7 L [place] # (Auto) 0.9 H Eos # (Auto) 0.6 H Seg Neutrophils % 80.0 H Lymphocytes % (Manual) Eosinophils % (Manual) Basophils % (Manual) Nucleated RBC % Seg Neutrophils # 13.0 H Seg Neutrophils # Man Lymphocytes # (Manual) Monocytes # (Manual) Eosinophils # (Manual) Basophils # (Manual) Percent Retic PT INR Fibrinogen D-Dimer ABG pH POC ABG pCO2 POC ABG pO2 ABG pO2 ABG HCO3 ABG O2 Saturation ABG Base Excess ABG Hemoglobin ABG Oxyhemoglobin ABG Sodium ABG Potassium ABG Chloride ABG Glucose Oxyhemoglobin Carboxyhemoglobin Sodium Potassium Chloride Carbon Dioxide BUN 61 H Creatinine 7.7 H Glucose 148 H POC Glucose 123 H Hemoglobin A1c Calcium Phosphorus Magnesium AST ALT Alkaline Phosphatase Lactate Dehydrogenase C-Reactive Protein Total Protein Albumin Triglycerides Arterial Blood Glucose Arterial Blood Ionized Calcium Urine WBC (Auto) U Epithel Cells (Auto) Urine Creatinine Random Vancomycin Coronavirus (PCR) Crossmatch 03/28/21 03/28/21 03/28/21 17:33 21:08 23:38 WBC RBC Hgb Hct MCH MCHC RDW Plt Count Lymph % (Auto) [place] # (Auto) Eos # (Auto) Seg Neutrophils % Lymphocytes % (Manual) Eosinophils % (Manual) Basophils % (Manual) Nucleated RBC % Seg Neutrophils # Seg Neutrophils # Man Lymphocytes # (Manual) Monocytes # (Manual) Eosinophils # (Manual) Basophils # (Manual) Percent Retic PT INR Fibrinogen D-Dimer ABG pH POC ABG pCO2 POC ABG pO2 80.5 L ABG pO2 ABG HCO3 ABG O2 Saturation ABG Base Excess ABG Hemoglobin 9.5 L ABG Oxyhemoglobin ABG Sodium 133.3 L ABG Potassium ABG Chloride ABG Glucose 134 H Oxyhemoglobin Carboxyhemoglobin 0.3 L Sodium Potassium Chloride Carbon Dioxide BUN Creatinine Glucose POC Glucose 128 H 112 H Hemoglobin A1c Calcium Phosphorus Magnesium AST ALT Alkaline Phosphatase Lactate Dehydrogenase C-Reactive Protein Total Protein Albumin Triglycerides Arterial Blood Glucose 134 H Arterial Blood Ionized Calcium Urine WBC (Auto) U Epithel Cells (Auto) Urine Creatinine Random Vancomycin Coronavirus (PCR) Crossmatch 03/29/21 03/29/21 03/29/21 04:45 04:45 04:45 WBC 17.5 H RBC 3.15 L Hgb 8.8 L Hct 27.2 L MCH MCHC RDW 17.9 H Plt Count 132 L Lymph % (Auto) [place] # (Auto) Eos # (Auto) Seg Neutrophils % Lymphocytes % (Manual) Eosinophils % (Manual) Basophils % (Manual) Nucleated RBC % Seg Neutrophils # Seg Neutrophils # Man Lymphocytes # (Manual) Monocytes # (Manual) Eosinophils # (Manual) Basophils # (Manual) Percent Retic PT INR Fibrinogen D-Dimer ABG pH POC ABG pCO2 POC ABG pO2 ABG pO2 ABG HCO3 ABG O2 Saturation ABG Base Excess ABG Hemoglobin ABG Oxyhemoglobin ABG Sodium ABG Potassium ABG Chloride ABG Glucose Oxyhemoglobin Carboxyhemoglobin Sodium Potassium Chloride 97.7 L Carbon Dioxide 21 L BUN 78 H Creatinine 9.5 H Glucose 132 H POC Glucose Hemoglobin A1c Calcium Phosphorus Magnesium AST ALT Alkaline Phosphatase Lactate Dehydrogenase C-Reactive Protein Total Protein Albumin 2.2 L Triglycerides 385 H Arterial Blood Glucose Arterial Blood Ionized Calcium Urine WBC (Auto) U Epithel Cells (Auto) Urine Creatinine Random Vancomycin Coronavirus (PCR) Crossmatch 03/29/21 03/29/21 03/29/21 11:35 16:50 21:06 WBC RBC Hgb Hct MCH MCHC RDW Plt Count Lymph % (Auto) [place] # (Auto) Eos # (Auto) Seg Neutrophils % Lymphocytes % (Manual) Eosinophils % (Manual) Basophils % (Manual) Nucleated RBC % Seg Neutrophils # Seg Neutrophils # Man Lymphocytes # (Manual) Monocytes # (Manual) Eosinophils # (Manual) Basophils # (Manual) Percent Retic PT INR Fibrinogen D-Dimer ABG pH POC ABG pCO2 POC ABG pO2 ABG pO2 64.9 L ABG HCO3 ABG O2 Saturation ABG Base Excess -5.2 L ABG Hemoglobin ABG Oxyhemoglobin ABG Sodium ABG Potassium ABG Chloride ABG Glucose Oxyhemoglobin 85.1 L Carboxyhemoglobin Sodium Potassium Chloride Carbon Dioxide BUN Creatinine Glucose POC Glucose 148 H 133 H Hemoglobin A1c Calcium Phosphorus Magnesium AST ALT Alkaline Phosphatase Lactate Dehydrogenase C-Reactive Protein Total Protein Albumin Triglycerides Arterial Blood Glucose Arterial Blood Ionized Calcium Urine WBC (Auto) U Epithel Cells (Auto) Urine Creatinine Random Vancomycin Coronavirus (PCR) Crossmatch 03/29/21 03/30/21 03/30/21 Unknown 00:13 04:00 WBC 15.7 H RBC 3.18 L Hgb 8.6 L Hct 27.3 L MCH 27 L MCHC RDW 18.0 H Plt Count 86 L Lymph % (Auto) [place] # (Auto) Eos # (Auto) Seg Neutrophils % Lymphocytes % (Manual) Eosinophils % (Manual) Basophils % (Manual) Nucleated RBC % Seg Neutrophils # Seg Neutrophils # Man Lymphocytes # (Manual) Monocytes # (Manual) Eosinophils # (Manual) Basophils # (Manual) Percent Retic PT INR Fibrinogen D-Dimer ABG pH 7.258 L POC ABG pCO2 POC ABG pO2 ABG pO2 ABG HCO3 ABG O2 Saturation ABG Base Excess -4.9 L ABG Hemoglobin 8.8 L ABG Oxyhemoglobin ABG Sodium ABG Potassium ABG Chloride ABG Glucose Oxyhemoglobin 93.9 L Carboxyhemoglobin Sodium Potassium Chloride Carbon Dioxide BUN Creatinine Glucose POC Glucose 129 H Hemoglobin A1c Calcium Phosphorus Magnesium AST ALT Alkaline Phosphatase Lactate Dehydrogenase C-Reactive Protein Total Protein Albumin Triglycerides Arterial Blood Glucose Arterial Blood Ionized Calcium Urine WBC (Auto) U Epithel Cells (Auto) Urine Creatinine Random Vancomycin Coronavirus (PCR) Crossmatch 03/30/21 03/30/21 03/30/21 04:00 04:00 06:02 WBC RBC Hgb Hct MCH MCHC RDW Plt Count Lymph % (Auto) [place] # (Auto) Eos # (Auto) Seg Neutrophils % Lymphocytes % (Manual) Eosinophils % (Manual) Basophils % (Manual) Nucleated RBC % Seg Neutrophils # Seg Neutrophils # Man Lymphocytes # (Manual) Monocytes # (Manual) Eosinophils # (Manual) Basophils # (Manual) Percent Retic PT INR Fibrinogen D-Dimer 2607.12 H ABG pH POC ABG pCO2 POC ABG pO2 ABG pO2 ABG HCO3 ABG O2 Saturation ABG Base Excess ABG Hemoglobin ABG Oxyhemoglobin ABG Sodium ABG Potassium ABG Chloride ABG Glucose Oxyhemoglobin Carboxyhemoglobin Sodium 133 L Potassium 5.2 H D Chloride 91.5 L Carbon Dioxide 18 L BUN 101 H Creatinine 10.6 H Glucose 149 H POC Glucose 130 H Hemoglobin A1c Calcium Phosphorus 10.30 H Magnesium AST ALT Alkaline Phosphatase Lactate Dehydrogenase C-Reactive Protein 21.50 H Total Protein Albumin Triglycerides Arterial Blood Glucose Arterial Blood Ionized Calcium Urine WBC (Auto) U Epithel Cells (Auto) Urine Creatinine Random Vancomycin Coronavirus (PCR) Crossmatch 03/30/21 03/30/21 03/30/21 10:36 11:48 17:20 WBC RBC Hgb Hct MCH MCHC RDW Plt Count Lymph % (Auto) [place] # (Auto) Eos # (Auto) Seg Neutrophils % Lymphocytes % (Manual) Eosinophils % (Manual) Basophils % (Manual) Nucleated RBC % Seg Neutrophils # Seg Neutrophils # Man Lymphocytes # (Manual) Monocytes # (Manual) Eosinophils # (Manual) Basophils # (Manual) Percent Retic PT INR Fibrinogen D-Dimer ABG pH 7.224 L POC ABG pCO2 49.1 H POC ABG pO2 61.5 L ABG pO2 ABG HCO3 ABG O2 Saturation ABG Base Excess ABG Hemoglobin 10.2 L ABG Oxyhemoglobin 86.2 L ABG Sodium 129.6 L ABG Potassium 5.4 H ABG Chloride 96.0 L ABG Glucose 161 H Oxyhemoglobin Carboxyhemoglobin Sodium Potassium Chloride Carbon Dioxide BUN Creatinine Glucose POC Glucose 163 H 130 H Hemoglobin A1c Calcium Phosphorus Magnesium AST ALT Alkaline Phosphatase Lactate Dehydrogenase C-Reactive Protein Total Protein Albumin Triglycerides Arterial Blood Glucose 161 H Arterial Blood Ionized Calcium 4.4 L Urine WBC (Auto) U Epithel Cells (Auto) Urine Creatinine Random Vancomycin Coronavirus (PCR) Crossmatch 03/30/21 03/31/21 03/31/21 23:49 00:28 05:20 WBC 17.3 H RBC 2.99 L Hgb 8.2 L Hct 25.3 L MCH 27 L MCHC RDW 18.3 H Plt Count 126 L Lymph % (Auto) [place] # (Auto) Eos # (Auto) Seg Neutrophils % Lymphocytes % (Manual) Eosinophils % (Manual) Basophils % (Manual) Nucleated RBC % Seg Neutrophils # Seg Neutrophils # Man Lymphocytes # (Manual) Monocytes # (Manual) Eosinophils # (Manual) Basophils # (Manual) Percent Retic PT INR Fibrinogen D-Dimer ABG pH 7.249 L POC ABG pCO2 POC ABG pO2 77.7 L ABG pO2 ABG HCO3 ABG O2 Saturation ABG Base Excess ABG Hemoglobin 9.0 L ABG Oxyhemoglobin 92.9 L ABG Sodium 130.4 L ABG Potassium 4.7 H ABG Chloride ABG Glucose 166 H Oxyhemoglobin Carboxyhemoglobin 0.4 L Sodium Potassium Chloride Carbon Dioxide BUN Creatinine Glucose POC Glucose 143 H Hemoglobin A1c Calcium Phosphorus Magnesium AST ALT Alkaline Phosphatase Lactate Dehydrogenase C-Reactive Protein Total Protein Albumin Triglycerides Arterial Blood Glucose 166 H Arterial Blood Ionized Calcium 4.3 L Urine WBC (Auto) U Epithel Cells (Auto) Urine Creatinine Random Vancomycin Coronavirus (PCR) Crossmatch 03/31/21 03/31/21 03/31/21 05:20 06:18 09:44 WBC RBC Hgb Hct MCH MCHC RDW Plt Count Lymph % (Auto) [place] # (Auto) Eos # (Auto) Seg Neutrophils % Lymphocytes % (Manual) Eosinophils % (Manual) Basophils % (Manual) Nucleated RBC % Seg Neutrophils # Seg Neutrophils # Man Lymphocytes # (Manual) Monocytes # (Manual) Eosinophils # (Manual) Basophils # (Manual) Percent Retic PT INR Fibrinogen D-Dimer ABG pH 7.247 L POC ABG pCO2 POC ABG pO2 ABG pO2 ABG HCO3 ABG O2 Saturation 94.4 L ABG Base Excess -5.1 L ABG Hemoglobin 8.2 L ABG Oxyhemoglobin ABG Sodium ABG Potassium ABG Chloride ABG Glucose Oxyhemoglobin 92.4 L Carboxyhemoglobin Sodium Potassium Chloride Carbon Dioxide BUN Creatinine Glucose POC Glucose 155 H Hemoglobin A1c Calcium Phosphorus 8.20 H D Magnesium AST ALT Alkaline Phosphatase Lactate Dehydrogenase C-Reactive Protein Total Protein Albumin Triglycerides Arterial Blood Glucose Arterial Blood Ionized Calcium Urine WBC (Auto) U Epithel Cells (Auto) Urine Creatinine Random Vancomycin Coronavirus (PCR) Crossmatch 03/31/21 03/31/21 03/31/21 09:49 09:55 09:55 WBC RBC Hgb Hct MCH MCHC RDW Plt Count Lymph % (Auto) [place] # (Auto) Eos # (Auto) Seg Neutrophils % Lymphocytes % (Manual) Eosinophils % (Manual) Basophils % (Manual) Nucleated RBC % Seg Neutrophils # Seg Neutrophils # Man Lymphocytes # (Manual) Monocytes # (Manual) Eosinophils # (Manual) Basophils # (Manual) Percent Retic 4.52 H PT 16.5 H INR 1.20 H Fibrinogen D-Dimer ABG pH POC ABG pCO2 POC ABG pO2 ABG pO2 ABG HCO3 ABG O2 Saturation ABG Base Excess ABG Hemoglobin ABG Oxyhemoglobin ABG Sodium ABG Potassium ABG Chloride ABG Glucose Oxyhemoglobin Carboxyhemoglobin Sodium 133 L Potassium Chloride 92.8 L Carbon Dioxide 20 L BUN 87 H Creatinine 8.9 H Glucose 177 H POC Glucose Hemoglobin A1c Calcium 8.2 L Phosphorus Magnesium AST 169 H ALT Alkaline Phosphatase 187 H Lactate Dehydrogenase C-Reactive Protein Total Protein Albumin 2.3 L Triglycerides Arterial Blood Glucose Arterial Blood Ionized Calcium Urine WBC (Auto) U Epithel Cells (Auto) Urine Creatinine Random Vancomycin Coronavirus (PCR) Crossmatch 03/31/21 03/31/21 03/31/21 09:55 09:55 11:25 WBC RBC Hgb Hct MCH MCHC RDW Plt Count Lymph % (Auto) [place] # (Auto) Eos # (Auto) Seg Neutrophils % Lymphocytes % (Manual) Eosinophils % (Manual) Basophils % (Manual) Nucleated RBC % Seg Neutrophils # Seg Neutrophils # Man Lymphocytes # (Manual) Monocytes # (Manual) Eosinophils # (Manual) Basophils # (Manual) Percent Retic PT INR Fibrinogen 491 H D-Dimer ABG pH POC ABG pCO2 POC ABG pO2 ABG pO2 ABG HCO3 ABG O2 Saturation ABG Base Excess ABG Hemoglobin ABG Oxyhemoglobin ABG Sodium ABG Potassium ABG Chloride ABG Glucose Oxyhemoglobin Carboxyhemoglobin Sodium Potassium Chloride Carbon Dioxide BUN Creatinine Glucose POC Glucose 178 H Hemoglobin A1c Calcium Phosphorus Magnesium AST ALT Alkaline Phosphatase Lactate Dehydrogenase 509 H C-Reactive Protein Total Protein Albumin Triglycerides Arterial Blood Glucose Arterial Blood Ionized Calcium Urine WBC (Auto) U Epithel Cells (Auto) Urine Creatinine Random Vancomycin Coronavirus (PCR) Crossmatch 03/31/21 03/31/21 03/31/21 12:30 17:40 21:00 WBC RBC Hgb Hct MCH MCHC RDW Plt Count Lymph % (Auto) [place] # (Auto) Eos # (Auto) Seg Neutrophils % Lymphocytes % (Manual) Eosinophils % (Manual) Basophils % (Manual) Nucleated RBC % Seg Neutrophils # Seg Neutrophils # Man Lymphocytes # (Manual) Monocytes # (Manual) Eosinophils # (Manual) Basophils # (Manual) Percent Retic PT INR Fibrinogen D-Dimer ABG pH 7.235 L 7.216 L POC ABG pCO2 POC ABG pO2 ABG pO2 76.8 L 113.9 H ABG HCO3 ABG O2 Saturation 93.2 L ABG Base Excess -5.3 L -7.3 L ABG Hemoglobin 6.3 L 8.0 L ABG Oxyhemoglobin ABG Sodium ABG Potassium ABG Chloride ABG Glucose Oxyhemoglobin 91.1 L Carboxyhemoglobin Sodium Potassium Chloride Carbon Dioxide BUN Creatinine Glucose POC Glucose 245 H Hemoglobin A1c Calcium Phosphorus Magnesium AST ALT Alkaline Phosphatase Lactate Dehydrogenase C-Reactive Protein Total Protein Albumin Triglycerides Arterial Blood Glucose Arterial Blood Ionized Calcium Urine WBC (Auto) U Epithel Cells (Auto) Urine Creatinine Random Vancomycin Coronavirus (PCR) Crossmatch 04/01/21 04/01/21 04/01/21 00:11 05:09 08:25 WBC RBC Hgb Hct MCH MCHC RDW Plt Count Lymph % (Auto) [place] # (Auto) Eos # (Auto) Seg Neutrophils % Lymphocytes % (Manual) Eosinophils % (Manual) Basophils % (Manual) Nucleated RBC % Seg Neutrophils # Seg Neutrophils # Man Lymphocytes # (Manual) Monocytes # (Manual) Eosinophils # (Manual) Basophils # (Manual) Percent Retic PT INR Fibrinogen D-Dimer ABG pH 7.225 L POC ABG pCO2 POC ABG pO2 ABG pO2 76.4 L ABG HCO3 ABG O2 Saturation 92.2 L ABG Base Excess -7.6 L ABG Hemoglobin 7.3 L ABG Oxyhemoglobin ABG Sodium ABG Potassium ABG Chloride ABG Glucose Oxyhemoglobin 90.2 L Carboxyhemoglobin Sodium Potassium Chloride Carbon Dioxide BUN Creatinine Glucose POC Glucose 209 H 173 H Hemoglobin A1c Calcium Phosphorus Magnesium AST ALT Alkaline Phosphatase Lactate Dehydrogenase C-Reactive Protein Total Protein Albumin Triglycerides Arterial Blood Glucose Arterial Blood Ionized Calcium Urine WBC (Auto) U Epithel Cells (Auto) Urine Creatinine Random Vancomycin Coronavirus (PCR) Crossmatch 04/01/21 04/01/21 04/01/21 12:01 12:05 17:55 WBC RBC Hgb Hct MCH MCHC RDW Plt Count Lymph % (Auto) [place] # (Auto) Eos # (Auto) Seg Neutrophils % Lymphocytes % (Manual) Eosinophils % (Manual) Basophils % (Manual) Nucleated RBC % Seg Neutrophils # Seg Neutrophils # Man Lymphocytes # (Manual) Monocytes # (Manual) Eosinophils # (Manual) Basophils # (Manual) Percent Retic PT INR Fibrinogen D-Dimer ABG pH POC ABG pCO2 POC ABG pO2 ABG pO2 ABG HCO3 ABG O2 Saturation ABG Base Excess ABG Hemoglobin ABG Oxyhemoglobin ABG Sodium ABG Potassium ABG Chloride ABG Glucose Oxyhemoglobin Carboxyhemoglobin Sodium Potassium 5.9 H Chloride Carbon Dioxide BUN Creatinine Glucose POC Glucose 202 H 217 H Hemoglobin A1c Calcium Phosphorus Magnesium AST ALT Alkaline Phosphatase Lactate Dehydrogenase C-Reactive Protein Total Protein Albumin Triglycerides Arterial Blood Glucose Arterial Blood Ionized Calcium Urine WBC (Auto) U Epithel Cells (Auto) Urine Creatinine Random Vancomycin Coronavirus (PCR) Crossmatch 04/01/21 04/01/21 04/01/21 Unknown Unknown 23:59 WBC 27.2 H RBC 3.08 L Hgb 8.4 L Hct 26.0 L MCH 27 L MCHC RDW 18.5 H Plt Count Lymph % (Auto) [place] # (Auto) Eos # (Auto) Seg Neutrophils % Lymphocytes % (Manual) Eosinophils % (Manual) Basophils % (Manual) Nucleated RBC % Seg Neutrophils # Seg Neutrophils # Man Lymphocytes # (Manual) Monocytes # (Manual) Eosinophils # (Manual) Basophils # (Manual) Percent Retic PT INR Fibrinogen D-Dimer ABG pH POC ABG pCO2 POC ABG pO2 ABG pO2 ABG HCO3 ABG O2 Saturation ABG Base Excess ABG Hemoglobin ABG Oxyhemoglobin ABG Sodium ABG Potassium ABG Chloride ABG Glucose Oxyhemoglobin Carboxyhemoglobin Sodium 132 L Potassium 6.6 H* D Chloride 91.3 L Carbon Dioxide 17 L BUN 104 H Creatinine 9.3 H Glucose 199 H POC Glucose 172 H Hemoglobin A1c Calcium 8.3 L Phosphorus Magnesium AST 236 H ALT 93 H Alkaline Phosphatase 191 H Lactate Dehydrogenase C-Reactive Protein Total Protein Albumin 2.4 L Triglycerides Arterial Blood Glucose Arterial Blood Ionized Calcium Urine WBC (Auto) U Epithel Cells (Auto) Urine Creatinine Random Vancomycin Coronavirus (PCR) Crossmatch 04/02/21 04/02/21 04/02/21 04:00 04:00 05:00 WBC 31.0 H RBC 2.93 L Hgb 8.0 L Hct 24.7 L MCH 27 L MCHC RDW 19.2 H Plt Count 131 L Lymph % (Auto) [place] # (Auto) Eos # (Auto) Seg Neutrophils % Lymphocytes % (Manual) Eosinophils % (Manual) Basophils % (Manual) Nucleated RBC % Seg Neutrophils # Seg Neutrophils # Man Lymphocytes # (Manual) Monocytes # (Manual) Eosinophils # (Manual) Basophils # (Manual) Percent Retic PT 16.0 H INR 1.16 H Fibrinogen D-Dimer ABG pH POC ABG pCO2 POC ABG pO2 ABG pO2 ABG HCO3 ABG O2 Saturation ABG Base Excess ABG Hemoglobin ABG Oxyhemoglobin ABG Sodium ABG Potassium ABG Chloride ABG Glucose Oxyhemoglobin Carboxyhemoglobin Sodium 135 L Potassium 5.3 H Chloride 96.1 L Carbon Dioxide 18 L BUN 80 H Creatinine 6.8 H Glucose 174 H POC Glucose Hemoglobin A1c Calcium 7.7 L Phosphorus Magnesium AST 106 H ALT 60 H Alkaline Phosphatase Lactate Dehydrogenase C-Reactive Protein Total Protein 5.9 L Albumin 3.5 L Triglycerides 579 H Arterial Blood Glucose Arterial Blood Ionized Calcium Urine WBC (Auto) U Epithel Cells (Auto) Urine Creatinine Random Vancomycin Coronavirus (PCR) Crossmatch 04/02/21 04/02/21 04/02/21 05:09 08:55 11:06 WBC RBC Hgb Hct MCH MCHC RDW Plt Count Lymph % (Auto) [place] # (Auto) Eos # (Auto) Seg Neutrophils % Lymphocytes % (Manual) Eosinophils % (Manual) Basophils % (Manual) Nucleated RBC % Seg Neutrophils # Seg Neutrophils # Man Lymphocytes # (Manual) Monocytes # (Manual) Eosinophils # (Manual) Basophils # (Manual) Percent Retic PT INR Fibrinogen D-Dimer ABG pH 7.188 L POC ABG pCO2 58.3 H POC ABG pO2 132.8 H ABG pO2 ABG HCO3 ABG O2 Saturation ABG Base Excess ABG Hemoglobin 8.4 L ABG Oxyhemoglobin ABG Sodium ABG Potassium 5.0 H ABG Chloride 97.0 L ABG Glucose 156 H Oxyhemoglobin Carboxyhemoglobin 0.4 L Sodium Potassium Chloride Carbon Dioxide BUN Creatinine Glucose POC Glucose 148 H 167 H Hemoglobin A1c Calcium Phosphorus Magnesium AST ALT Alkaline Phosphatase Lactate Dehydrogenase C-Reactive Protein Total Protein Albumin Triglycerides Arterial Blood Glucose 156 H Arterial Blood Ionized Calcium 4.2 L Urine WBC (Auto) U Epithel Cells (Auto) Urine Creatinine Random Vancomycin Coronavirus (PCR) Crossmatch 04/02/21 04/02/21 04/03/21 17:57 20:40 00:28 WBC RBC Hgb Hct MCH MCHC RDW Plt Count Lymph % (Auto) [place] # (Auto) Eos # (Auto) Seg Neutrophils % Lymphocytes % (Manual) Eosinophils % (Manual) Basophils % (Manual) Nucleated RBC % Seg Neutrophils # Seg Neutrophils # Man Lymphocytes # (Manual) Monocytes # (Manual) Eosinophils # (Manual) Basophils # (Manual) Percent Retic PT INR Fibrinogen D-Dimer ABG pH POC ABG pCO2 POC ABG pO2 ABG pO2 111.9 H ABG HCO3 18.9 L ABG O2 Saturation ABG Base Excess -9.9 L ABG Hemoglobin ABG Oxyhemoglobin ABG Sodium ABG Potassium ABG Chloride ABG Glucose Oxyhemoglobin Carboxyhemoglobin Sodium Potassium Chloride Carbon Dioxide BUN Creatinine Glucose POC Glucose 205 H 217 H Hemoglobin A1c Calcium Phosphorus Magnesium AST ALT Alkaline Phosphatase Lactate Dehydrogenase C-Reactive Protein Total Protein Albumin Triglycerides Arterial Blood Glucose Arterial Blood Ionized Calcium Urine WBC (Auto) U Epithel Cells (Auto) Urine Creatinine Random Vancomycin Coronavirus (PCR) Crossmatch 04/03/21 04/03/21 04/03/21 03:39 04:30 04:30 WBC 31.1 H RBC 2.78 L Hgb 8.0 L Hct 24.0 L MCH MCHC RDW 19.0 H Plt Count Lymph % (Auto) [place] # (Auto) Eos # (Auto) Seg Neutrophils % Lymphocytes % (Manual) Eosinophils % (Manual) 27.0 H Basophils % (Manual) 2.0 H Nucleated RBC % Seg Neutrophils # Seg Neutrophils # Man 13.7 H Lymphocytes # (Manual) 8.4 H Monocytes # (Manual) Eosinophils # (Manual) 8.4 H Basophils # (Manual) 0.6 H Percent Retic PT INR Fibrinogen D-Dimer ABG pH POC ABG pCO2 POC ABG pO2 ABG pO2 ABG HCO3 ABG O2 Saturation ABG Base Excess ABG Hemoglobin ABG Oxyhemoglobin ABG Sodium ABG Potassium ABG Chloride ABG Glucose Oxyhemoglobin Carboxyhemoglobin Sodium 132 L Potassium 5.8 H Chloride 94.5 L Carbon Dioxide 16 L BUN 97 H Creatinine 7.7 H Glucose 230 H POC Glucose 201 H Hemoglobin A1c Calcium 7.6 L Phosphorus Magnesium AST 47 H ALT Alkaline Phosphatase 146 H Lactate Dehydrogenase C-Reactive Protein Total Protein 5.2 L Albumin 3.4 L Triglycerides Arterial Blood Glucose Arterial Blood Ionized Calcium Urine WBC (Auto) U Epithel Cells (Auto) Urine Creatinine Random Vancomycin Coronavirus (PCR) Crossmatch 04/03/21 04/03/21 04/03/21 04:30 08:31 11:29 WBC RBC Hgb Hct MCH MCHC RDW Plt Count Lymph % (Auto) [place] # (Auto) Eos # (Auto) Seg Neutrophils % Lymphocytes % (Manual) Eosinophils % (Manual) Basophils % (Manual) Nucleated RBC % Seg Neutrophils # Seg Neutrophils # Man Lymphocytes # (Manual) Monocytes # (Manual) Eosinophils # (Manual) Basophils # (Manual) Percent Retic PT INR Fibrinogen D-Dimer ABG pH 7.195 L* POC ABG pCO2 POC ABG pO2 ABG pO2 102.6 H ABG HCO3 ABG O2 Saturation ABG Base Excess -7.2 L ABG Hemoglobin 8.0 L ABG Oxyhemoglobin ABG Sodium ABG Potassium ABG Chloride ABG Glucose Oxyhemoglobin 94.7 L Carboxyhemoglobin Sodium Potassium Chloride Carbon Dioxide BUN Creatinine Glucose POC Glucose 230 H Hemoglobin A1c Calcium Phosphorus 10.30 H Magnesium AST ALT Alkaline Phosphatase Lactate Dehydrogenase C-Reactive Protein Total Protein Albumin Triglycerides Arterial Blood Glucose Arterial Blood Ionized Calcium Urine WBC (Auto) U Epithel Cells (Auto) Urine Creatinine Random Vancomycin Coronavirus (PCR) Crossmatch 04/03/21 04/03/21 04/04/21 16:53 20:45 05:00 WBC 28.8 H RBC 2.64 L Hgb 8.7 L Hct 22.2 L MCH 33 H MCHC 39 H* RDW 18.6 H Plt Count Lymph % (Auto) [place] # (Auto) Eos # (Auto) Seg Neutrophils % Lymphocytes % (Manual) Eosinophils % (Manual) Basophils % (Manual) Nucleated RBC % Seg Neutrophils # Seg Neutrophils # Man Lymphocytes # (Manual) Monocytes # (Manual) Eosinophils # (Manual) Basophils # (Manual) Percent Retic PT INR Fibrinogen D-Dimer ABG pH POC ABG pCO2 POC ABG pO2 ABG pO2 ABG HCO3 ABG O2 Saturation ABG Base Excess ABG Hemoglobin ABG Oxyhemoglobin ABG Sodium ABG Potassium ABG Chloride ABG Glucose Oxyhemoglobin 94.8 L Carboxyhemoglobin Sodium Potassium Chloride Carbon Dioxide BUN Creatinine Glucose POC Glucose 227 H Hemoglobin A1c Calcium Phosphorus Magnesium AST ALT Alkaline Phosphatase Lactate Dehydrogenase C-Reactive Protein Total Protein Albumin Triglycerides Arterial Blood Glucose Arterial Blood Ionized Calcium Urine WBC (Auto) U Epithel Cells (Auto) Urine Creatinine Random Vancomycin Coronavirus (PCR) Crossmatch 04/04/21 04/04/21 04/04/21 05:29 07:55 09:20 WBC RBC Hgb Hct MCH MCHC RDW Plt Count Lymph % (Auto) [place] # (Auto) Eos # (Auto) Seg Neutrophils % Lymphocytes % (Manual) Eosinophils % (Manual) Basophils % (Manual) Nucleated RBC % Seg Neutrophils # Seg Neutrophils # Man Lymphocytes # (Manual) Monocytes # (Manual) Eosinophils # (Manual) Basophils # (Manual) Percent Retic PT INR Fibrinogen D-Dimer ABG pH POC ABG pCO2 POC ABG pO2 ABG pO2 ABG HCO3 ABG O2 Saturation ABG Base Excess ABG Hemoglobin ABG Oxyhemoglobin ABG Sodium ABG Potassium ABG Chloride ABG Glucose Oxyhemoglobin Carboxyhemoglobin Sodium 133 L Potassium Chloride 91.0 L Carbon Dioxide 20 L BUN 75 H Creatinine 4.7 H Glucose 184 H POC Glucose 133 H Hemoglobin A1c Calcium 7.3 L Phosphorus Magnesium AST < 5 L ALT < 5 L Alkaline Phosphatase 200 H Lactate Dehydrogenase C-Reactive Protein Total Protein 5.6 L Albumin 2.9 L Triglycerides Arterial Blood Glucose Arterial Blood Ionized Calcium Urine WBC (Auto) U Epithel Cells (Auto) Urine Creatinine Random Vancomycin Coronavirus (PCR) Crossmatch See Detail 04/04/21 04/04/21 04/04/21 12:01 14:06 17:05 WBC RBC Hgb Hct MCH MCHC RDW Plt Count Lymph % (Auto) [place] # (Auto) Eos # (Auto) Seg Neutrophils % Lymphocytes % (Manual) Eosinophils % (Manual) Basophils % (Manual) Nucleated RBC % Seg Neutrophils # Seg Neutrophils # Man Lymphocytes # (Manual) Monocytes # (Manual) Eosinophils # (Manual) Basophils # (Manual) Percent Retic PT INR Fibrinogen D-Dimer ABG pH 7.162 L* POC ABG pCO2 POC ABG pO2 ABG pO2 91.3 H ABG HCO3 ABG O2 Saturation 94.8 L ABG Base Excess -4.0 L ABG Hemoglobin 7.6 L ABG Oxyhemoglobin ABG Sodium ABG Potassium ABG Chloride ABG Glucose Oxyhemoglobin 92.4 L Carboxyhemoglobin Sodium Potassium Chloride Carbon Dioxide BUN Creatinine Glucose POC Glucose 199 H 166 H Hemoglobin A1c Calcium Phosphorus Magnesium AST ALT Alkaline Phosphatase Lactate Dehydrogenase C-Reactive Protein Total Protein Albumin Triglycerides Arterial Blood Glucose Arterial Blood Ionized Calcium Urine WBC (Auto) U Epithel Cells (Auto) Urine Creatinine Random Vancomycin Coronavirus (PCR) Crossmatch 04/04/21 04/04/21 04/05/21 21:14 23:30 05:20 WBC RBC Hgb Hct MCH MCHC RDW Plt Count Lymph % (Auto) [place] # (Auto) Eos # (Auto) Seg Neutrophils % Lymphocytes % (Manual) Eosinophils % (Manual) Basophils % (Manual) Nucleated RBC % Seg Neutrophils # Seg Neutrophils # Man Lymphocytes # (Manual) Monocytes # (Manual) Eosinophils # (Manual) Basophils # (Manual) Percent Retic PT INR Fibrinogen D-Dimer ABG pH 7.257 L POC ABG pCO2 POC ABG pO2 ABG pO2 73.8 L ABG HCO3 ABG O2 Saturation 91.6 L ABG Base Excess -2.7 L ABG Hemoglobin 8.6 L ABG Oxyhemoglobin ABG Sodium ABG Potassium ABG Chloride ABG Glucose Oxyhemoglobin 89.1 L Carboxyhemoglobin Sodium 131 L Potassium Chloride 91.2 L Carbon Dioxide 17 L BUN 85 H Creatinine 5.1 H Glucose 183 H POC Glucose 158 H Hemoglobin A1c Calcium 7.4 L Phosphorus Magnesium AST ALT Alkaline Phosphatase 190 H Lactate Dehydrogenase 394 H C-Reactive Protein Total Protein 5.8 L Albumin 2.7 L Triglycerides Arterial Blood Glucose Arterial Blood Ionized Calcium Urine WBC (Auto) U Epithel Cells (Auto) Urine Creatinine Random Vancomycin Coronavirus (PCR) Crossmatch 04/05/21 04/05/21 04/05/21 05:20 05:20 05:24 WBC 30.8 H RBC 2.83 L Hgb 8.4 L Hct 24.4 L MCH MCHC 35 H RDW 18.9 H Plt Count Lymph % (Auto) [place] # (Auto) Eos # (Auto) Seg Neutrophils % Lymphocytes % (Manual) Eosinophils % (Manual) Basophils % (Manual) Nucleated RBC % Seg Neutrophils # Seg Neutrophils # Man Lymphocytes # (Manual) Monocytes # (Manual) Eosinophils # (Manual) Basophils # (Manual) Percent Retic PT INR Fibrinogen D-Dimer ABG pH POC ABG pCO2 POC ABG pO2 ABG pO2 ABG HCO3 ABG O2 Saturation ABG Base Excess ABG Hemoglobin ABG Oxyhemoglobin ABG Sodium ABG Potassium ABG Chloride ABG Glucose Oxyhemoglobin Carboxyhemoglobin Sodium Potassium Chloride Carbon Dioxide BUN Creatinine Glucose POC Glucose 162 H Hemoglobin A1c Calcium Phosphorus 9.40 H Magnesium AST ALT Alkaline Phosphatase Lactate Dehydrogenase C-Reactive Protein Total Protein Albumin Triglycerides Arterial Blood Glucose Arterial Blood Ionized Calcium Urine WBC (Auto) U Epithel Cells (Auto) Urine Creatinine Random Vancomycin Coronavirus (PCR) Crossmatch 04/05/21 04/05/21 04/05/21 11:31 12:23 21:40 WBC RBC Hgb Hct MCH MCHC RDW Plt Count Lymph % (Auto) [place] # (Auto) Eos # (Auto) Seg Neutrophils % Lymphocytes % (Manual) Eosinophils % (Manual) Basophils % (Manual) Nucleated RBC % Seg Neutrophils # Seg Neutrophils # Man Lymphocytes # (Manual) Monocytes # (Manual) Eosinophils # (Manual) Basophils # (Manual) Percent Retic PT INR Fibrinogen D-Dimer ABG pH 7.325 L POC ABG pCO2 POC ABG pO2 ABG pO2 65.6 L ABG HCO3 ABG O2 Saturation 91.2 L ABG Base Excess ABG Hemoglobin 6.7 L ABG Oxyhemoglobin ABG Sodium ABG Potassium ABG Chloride ABG Glucose Oxyhemoglobin 89.0 L Carboxyhemoglobin Sodium Potassium Chloride Carbon Dioxide BUN Creatinine Glucose POC Glucose 196 H 190 H Hemoglobin A1c Calcium Phosphorus Magnesium AST ALT Alkaline Phosphatase Lactate Dehydrogenase C-Reactive Protein Total Protein Albumin Triglycerides Arterial Blood Glucose Arterial Blood Ionized Calcium Urine WBC (Auto) U Epithel Cells (Auto) Urine Creatinine Random Vancomycin Coronavirus (PCR) Crossmatch 04/05/21 04/06/21 04/06/21 23:53 05:35 06:00 WBC RBC Hgb Hct MCH MCHC RDW Plt Count Lymph % (Auto) [place] # (Auto) Eos # (Auto) Seg Neutrophils % Lymphocytes % (Manual) Eosinophils % (Manual) Basophils % (Manual) Nucleated RBC % Seg Neutrophils # Seg Neutrophils # Man Lymphocytes # (Manual) Monocytes # (Manual) Eosinophils # (Manual) Basophils # (Manual) Percent Retic PT INR Fibrinogen D-Dimer ABG pH POC ABG pCO2 POC ABG pO2 ABG pO2 ABG HCO3 ABG O2 Saturation ABG Base Excess ABG Hemoglobin ABG Oxyhemoglobin ABG Sodium ABG Potassium ABG Chloride ABG Glucose Oxyhemoglobin Carboxyhemoglobin Sodium 132 L Potassium Chloride 90.7 L Carbon Dioxide 21 L BUN 74 H Creatinine 4.3 H Glucose 156 H POC Glucose 192 H 139 H Hemoglobin A1c Calcium 7.9 L Phosphorus 6.90 H D Magnesium AST < 5 L ALT < 5 L Alkaline Phosphatase 185 H Lactate Dehydrogenase C-Reactive Protein Total Protein 5.7 L Albumin 2.5 L Triglycerides Arterial Blood Glucose Arterial Blood Ionized Calcium Urine WBC (Auto) U Epithel Cells (Auto) Urine Creatinine Random Vancomycin Coronavirus (PCR) Crossmatch 04/06/21 04/06/21 04/06/21 06:00 11:27 18:01 WBC 26.7 H RBC 2.39 L Hgb 6.9 L Hct 20.1 L MCH MCHC RDW 18.7 H Plt Count Lymph % (Auto) [place] # (Auto) Eos # (Auto) Seg Neutrophils % Lymphocytes % (Manual) Eosinophils % (Manual) Basophils % (Manual) Nucleated RBC % Seg Neutrophils # Seg Neutrophils # Man Lymphocytes # (Manual) Monocytes # (Manual) Eosinophils # (Manual) Basophils # (Manual) Percent Retic PT INR Fibrinogen D-Dimer ABG pH POC ABG pCO2 POC ABG pO2 ABG pO2 ABG HCO3 ABG O2 Saturation ABG Base Excess ABG Hemoglobin ABG Oxyhemoglobin ABG Sodium ABG Potassium ABG Chloride ABG Glucose Oxyhemoglobin Carboxyhemoglobin Sodium Potassium Chloride Carbon Dioxide BUN Creatinine Glucose POC Glucose 166 H 159 H Hemoglobin A1c Calcium Phosphorus Magnesium AST ALT Alkaline Phosphatase Lactate Dehydrogenase C-Reactive Protein Total Protein Albumin Triglycerides Arterial Blood Glucose Arterial Blood Ionized Calcium Urine WBC (Auto) U Epithel Cells (Auto) Urine Creatinine Random Vancomycin Coronavirus (PCR) Crossmatch 04/06/21 04/06/21 04/06/21 20:50 23:43 Unknown WBC RBC Hgb Hct MCH MCHC RDW Plt Count Lymph % (Auto) [place] # (Auto) Eos # (Auto) Seg Neutrophils % Lymphocytes % (Manual) Eosinophils % (Manual) Basophils % (Manual) Nucleated RBC % Seg Neutrophils # Seg Neutrophils # Man Lymphocytes # (Manual) Monocytes # (Manual) Eosinophils # (Manual) Basophils # (Manual) Percent Retic PT INR Fibrinogen D-Dimer ABG pH 7.303 L POC ABG pCO2 POC ABG pO2 67.9 L ABG pO2 ABG HCO3 ABG O2 Saturation ABG Base Excess ABG Hemoglobin 7.6 L ABG Oxyhemoglobin 90.2 L ABG Sodium 128.6 L ABG Potassium ABG Chloride 97.0 L ABG Glucose 154 H Oxyhemoglobin Carboxyhemoglobin Sodium Potassium Chloride Carbon Dioxide BUN Creatinine Glucose POC Glucose 137 H Hemoglobin A1c Calcium Phosphorus Magnesium AST ALT Alkaline Phosphatase Lactate Dehydrogenase C-Reactive Protein Total Protein Albumin Triglycerides Arterial Blood Glucose 154 H Arterial Blood Ionized Calcium Urine WBC (Auto) 148.0 H U Epithel Cells (Auto) 102.0 H Urine Creatinine Random Vancomycin Coronavirus (PCR) Crossmatch 04/07/21 04/07/21 04/07/21 03:50 03:50 03:50 WBC 26.7 H RBC 2.66 L Hgb 7.6 L Hct 23.2 L MCH MCHC RDW 18.5 H Plt Count Lymph % (Auto) [place] # (Auto) Eos # (Auto) Seg Neutrophils % Lymphocytes % (Manual) 10.0 L Eosinophils % (Manual) 19.0 H Basophils % (Manual) Nucleated RBC % 2.0 H Seg Neutrophils # Seg Neutrophils # Man 17.9 H Lymphocytes # (Manual) Monocytes # (Manual) 1.1 H Eosinophils # (Manual) 5.1 H Basophils # (Manual) Percent Retic PT INR Fibrinogen D-Dimer 2178 H ABG pH POC ABG pCO2 POC ABG pO2 ABG pO2 ABG HCO3 ABG O2 Saturation ABG Base Excess ABG Hemoglobin ABG Oxyhemoglobin ABG Sodium ABG Potassium ABG Chloride ABG Glucose Oxyhemoglobin Carboxyhemoglobin Sodium 130 L Potassium Chloride 91.1 L Carbon Dioxide 19 L BUN 92 H Creatinine 4.2 H Glucose 213 H POC Glucose Hemoglobin A1c Calcium 7.8 L Phosphorus Magnesium AST ALT Alkaline Phosphatase Lactate Dehydrogenase C-Reactive Protein Total Protein Albumin Triglycerides Arterial Blood Glucose Arterial Blood Ionized Calcium Urine WBC (Auto) U Epithel Cells (Auto) Urine Creatinine Random Vancomycin Coronavirus (PCR) Crossmatch 04/07/21 04/07/21 04/07/21 04:00 05:42 11:10 WBC RBC Hgb Hct MCH MCHC RDW Plt Count Lymph % (Auto) [place] # (Auto) Eos # (Auto) Seg Neutrophils % Lymphocytes % (Manual) Eosinophils % (Manual) Basophils % (Manual) Nucleated RBC % Seg Neutrophils # Seg Neutrophils # Man Lymphocytes # (Manual) Monocytes # (Manual) Eosinophils # (Manual) Basophils # (Manual) Percent Retic PT INR Fibrinogen D-Dimer ABG pH POC ABG pCO2 POC ABG pO2 ABG pO2 ABG HCO3 ABG O2 Saturation ABG Base Excess ABG Hemoglobin ABG Oxyhemoglobin ABG Sodium ABG Potassium ABG Chloride ABG Glucose Oxyhemoglobin Carboxyhemoglobin Sodium 129 L Potassium 5.1 H Chloride 89.6 L Carbon Dioxide 18 L BUN 94 H Creatinine 4.2 H Glucose 213 H POC Glucose 177 H 136 H Hemoglobin A1c Calcium 7.9 L Phosphorus Magnesium AST ALT Alkaline Phosphatase 167 H Lactate Dehydrogenase C-Reactive Protein Total Protein Albumin 2.8 L Triglycerides Arterial Blood Glucose Arterial Blood Ionized Calcium Urine WBC (Auto) U Epithel Cells (Auto) Urine Creatinine Random Vancomycin Coronavirus (PCR) Crossmatch 04/07/21 04/07/21 04/08/21 16:19 21:30 02:32 WBC RBC Hgb Hct MCH MCHC RDW Plt Count Lymph % (Auto) [place] # (Auto) Eos # (Auto) Seg Neutrophils % Lymphocytes % (Manual) Eosinophils % (Manual) Basophils % (Manual) Nucleated RBC % Seg Neutrophils # Seg Neutrophils # Man Lymphocytes # (Manual) Monocytes # (Manual) Eosinophils # (Manual) Basophils # (Manual) Percent Retic PT INR Fibrinogen D-Dimer ABG pH 7.209 L POC ABG pCO2 64.8 H POC ABG pO2 ABG pO2 ABG HCO3 ABG O2 Saturation ABG Base Excess ABG Hemoglobin 7.9 L ABG Oxyhemoglobin 93.8 L ABG Sodium 128.8 L ABG Potassium 4.6 H ABG Chloride 97.0 L ABG Glucose 170 H Oxyhemoglobin Carboxyhemoglobin 1.6 H Sodium Potassium Chloride Carbon Dioxide BUN Creatinine Glucose POC Glucose 155 H 141 H Hemoglobin A1c Calcium Phosphorus Magnesium AST ALT Alkaline Phosphatase Lactate Dehydrogenase C-Reactive Protein Total Protein Albumin Triglycerides Arterial Blood Glucose 170 H Arterial Blood Ionized Calcium 4.2 L Urine WBC (Auto) U Epithel Cells (Auto) Urine Creatinine Random Vancomycin Coronavirus (PCR) Crossmatch 04/08/21 04/08/21 04/08/21 04:00 04:40 04:40 WBC 23.7 H RBC 2.51 L Hgb 6.9 L Hct 22.1 L MCH 27 L MCHC RDW 18.4 H Plt Count Lymph % (Auto) [place] # (Auto) Eos # (Auto) Seg Neutrophils % Lymphocytes % (Manual) Eosinophils % (Manual) Basophils % (Manual) Nucleated RBC % Seg Neutrophils # Seg Neutrophils # Man Lymphocytes # (Manual) Monocytes # (Manual) Eosinophils # (Manual) Basophils # (Manual) Percent Retic PT INR Fibrinogen D-Dimer 2696.79 H ABG pH POC ABG pCO2 POC ABG pO2 ABG pO2 ABG HCO3 ABG O2 Saturation ABG Base Excess ABG Hemoglobin ABG Oxyhemoglobin ABG Sodium ABG Potassium ABG Chloride ABG Glucose Oxyhemoglobin Carboxyhemoglobin Sodium 133 L Potassium 5.5 H Chloride 93.5 L Carbon Dioxide BUN 78 H Creatinine 3.5 H Glucose 171 H POC Glucose Hemoglobin A1c Calcium 8.1 L Phosphorus 9.30 H Magnesium AST ALT Alkaline Phosphatase Lactate Dehydrogenase C-Reactive Protein 26.10 H Total Protein Albumin Triglycerides 487 H Arterial Blood Glucose Arterial Blood Ionized Calcium Urine WBC (Auto) U Epithel Cells (Auto) Urine Creatinine Random Vancomycin Coronavirus (PCR) Crossmatch 04/08/21 04/08/21 04/08/21 09:55 11:37 13:55 WBC RBC Hgb Hct MCH MCHC RDW Plt Count Lymph % (Auto) [place] # (Auto) Eos # (Auto) Seg Neutrophils % Lymphocytes % (Manual) Eosinophils % (Manual) Basophils % (Manual) Nucleated RBC % Seg Neutrophils # Seg Neutrophils # Man Lymphocytes # (Manual) Monocytes # (Manual) Eosinophils # (Manual) Basophils # (Manual) Percent Retic PT INR Fibrinogen D-Dimer ABG pH 7.114 L* POC ABG pCO2 POC ABG pO2 ABG pO2 75.9 L ABG HCO3 26.2 H ABG O2 Saturation 90.6 L ABG Base Excess -3.6 L ABG Hemoglobin 8.2 L ABG Oxyhemoglobin ABG Sodium ABG Potassium ABG Chloride ABG Glucose Oxyhemoglobin 88.0 L Carboxyhemoglobin Sodium Potassium Chloride Carbon Dioxide BUN Creatinine Glucose POC Glucose 156 H Hemoglobin A1c Calcium Phosphorus Magnesium AST ALT Alkaline Phosphatase Lactate Dehydrogenase C-Reactive Protein Total Protein Albumin Triglycerides Arterial Blood Glucose Arterial Blood Ionized Calcium Urine WBC (Auto) U Epithel Cells (Auto) Urine Creatinine Random Vancomycin Coronavirus (PCR) Crossmatch See Detail 04/08/21 04/08/21 04/08/21 17:04 20:53 23:56 WBC RBC Hgb Hct MCH MCHC RDW Plt Count Lymph % (Auto) [place] # (Auto) Eos # (Auto) Seg Neutrophils % Lymphocytes % (Manual) Eosinophils % (Manual) Basophils % (Manual) Nucleated RBC % Seg Neutrophils # Seg Neutrophils # Man Lymphocytes # (Manual) Monocytes # (Manual) Eosinophils # (Manual) Basophils # (Manual) Percent Retic PT INR Fibrinogen D-Dimer ABG pH 7.207 L POC ABG pCO2 49.8 H POC ABG pO2 ABG pO2 ABG HCO3 ABG O2 Saturation ABG Base Excess ABG Hemoglobin 7.6 L ABG Oxyhemoglobin ABG Sodium 127.3 L ABG Potassium 5.7 H ABG Chloride 96.0 L ABG Glucose 185 H Oxyhemoglobin Carboxyhemoglobin Sodium Potassium Chloride Carbon Dioxide BUN Creatinine Glucose POC Glucose 178 H 189 H Hemoglobin A1c Calcium Phosphorus Magnesium AST ALT Alkaline Phosphatase Lactate Dehydrogenase C-Reactive Protein Total Protein Albumin Triglycerides Arterial Blood Glucose 185 H Arterial Blood Ionized Calcium 4.3 L Urine WBC (Auto) U Epithel Cells (Auto) Urine Creatinine Random Vancomycin Coronavirus (PCR) Crossmatch 04/09/21 04/09/21 04/09/21 04:00 04:00 05:24 WBC 21.9 H RBC 2.70 L Hgb 7.8 L Hct 24.1 L MCH MCHC RDW 18.3 H Plt Count Lymph % (Auto) [place] # (Auto) Eos # (Auto) Seg Neutrophils % Lymphocytes % (Manual) Eosinophils % (Manual) Basophils % (Manual) Nucleated RBC % Seg Neutrophils # Seg Neutrophils # Man Lymphocytes # (Manual) Monocytes # (Manual) Eosinophils # (Manual) Basophils # (Manual) Percent Retic PT INR Fibrinogen D-Dimer ABG pH POC ABG pCO2 POC ABG pO2 ABG pO2 ABG HCO3 ABG O2 Saturation ABG Base Excess ABG Hemoglobin ABG Oxyhemoglobin ABG Sodium ABG Potassium ABG Chloride ABG Glucose Oxyhemoglobin Carboxyhemoglobin Sodium 131 L Potassium 6.3 H* Chloride 93.0 L Carbon Dioxide 19 L BUN 98 H Creatinine 4.6 H Glucose 208 H POC Glucose 191 H Hemoglobin A1c Calcium 8.1 L Phosphorus Magnesium AST ALT Alkaline Phosphatase Lactate Dehydrogenase C-Reactive Protein Total Protein Albumin Triglycerides Arterial Blood Glucose Arterial Blood Ionized Calcium Urine WBC (Auto) U Epithel Cells (Auto) Urine Creatinine Random Vancomycin Coronavirus (PCR) Crossmatch 04/09/21 04/09/21 04/09/21 12:42 16:59 21:00 WBC RBC Hgb Hct MCH MCHC RDW Plt Count Lymph % (Auto) [place] # (Auto) Eos # (Auto) Seg Neutrophils % Lymphocytes % (Manual) Eosinophils % (Manual) Basophils % (Manual) Nucleated RBC % Seg Neutrophils # Seg Neutrophils # Man Lymphocytes # (Manual) Monocytes # (Manual) Eosinophils # (Manual) Basophils # (Manual) Percent Retic PT INR Fibrinogen D-Dimer ABG pH 7.192 L POC ABG pCO2 63.4 H POC ABG pO2 ABG pO2 ABG HCO3 ABG O2 Saturation ABG Base Excess ABG Hemoglobin 8.7 L ABG Oxyhemoglobin 92.9 L ABG Sodium 135.1 L ABG Potassium ABG Chloride ABG Glucose 208 H Oxyhemoglobin Carboxyhemoglobin Sodium Potassium Chloride Carbon Dioxide BUN Creatinine Glucose POC Glucose 198 H 218 H Hemoglobin A1c Calcium Phosphorus Magnesium AST ALT Alkaline Phosphatase Lactate Dehydrogenase C-Reactive Protein Total Protein Albumin Triglycerides Arterial Blood Glucose 208 H Arterial Blood Ionized Calcium Urine WBC (Auto) U Epithel Cells (Auto) Urine Creatinine Random Vancomycin Coronavirus (PCR) Crossmatch 04/09/21 04/10/21 04/10/21 23:31 04:45 04:45 WBC 18.0 H RBC 2.65 L Hgb 7.4 L Hct 23.3 L MCH MCHC RDW 18.5 H Plt Count Lymph % (Auto) [place] # (Auto) Eos # (Auto) Seg Neutrophils % Lymphocytes % (Manual) Eosinophils % (Manual) Basophils % (Manual) Nucleated RBC % Seg Neutrophils # Seg Neutrophils # Man Lymphocytes # (Manual) Monocytes # (Manual) Eosinophils # (Manual) Basophils # (Manual) Percent Retic PT INR Fibrinogen D-Dimer ABG pH POC ABG pCO2 POC ABG pO2 ABG pO2 ABG HCO3 ABG O2 Saturation ABG Base Excess ABG Hemoglobin ABG Oxyhemoglobin ABG Sodium ABG Potassium ABG Chloride ABG Glucose Oxyhemoglobin Carboxyhemoglobin Sodium Potassium 5.5 H Chloride Carbon Dioxide 21 L BUN 83 H Creatinine 3.4 H Glucose 211 H POC Glucose 162 H Hemoglobin A1c Calcium Phosphorus Magnesium AST ALT Alkaline Phosphatase Lactate Dehydrogenase C-Reactive Protein Total Protein Albumin Triglycerides Arterial Blood Glucose Arterial Blood Ionized Calcium Urine WBC (Auto) U Epithel Cells (Auto) Urine Creatinine Random Vancomycin Coronavirus (PCR) Crossmatch 04/10/21 04/10/21 04/10/21 05:01 11:58 17:42 WBC RBC Hgb Hct MCH MCHC RDW Plt Count Lymph % (Auto) [place] # (Auto) Eos # (Auto) Seg Neutrophils % Lymphocytes % (Manual) Eosinophils % (Manual) Basophils % (Manual) Nucleated RBC % Seg Neutrophils # Seg Neutrophils # Man Lymphocytes # (Manual) Monocytes # (Manual) Eosinophils # (Manual) Basophils # (Manual) Percent Retic PT INR Fibrinogen D-Dimer ABG pH POC ABG pCO2 POC ABG pO2 ABG pO2 ABG HCO3 ABG O2 Saturation ABG Base Excess ABG Hemoglobin ABG Oxyhemoglobin ABG Sodium ABG Potassium ABG Chloride ABG Glucose Oxyhemoglobin Carboxyhemoglobin Sodium Potassium Chloride Carbon Dioxide BUN Creatinine Glucose POC Glucose 183 H 136 H 166 H Hemoglobin A1c Calcium Phosphorus Magnesium AST ALT Alkaline Phosphatase Lactate Dehydrogenase C-Reactive Protein Total Protein Albumin Triglycerides Arterial Blood Glucose Arterial Blood Ionized Calcium Urine WBC (Auto) U Epithel Cells (Auto) Urine Creatinine Random Vancomycin Coronavirus (PCR) Crossmatch 04/11/21 04/11/21 04/11/21 00:02 04:15 04:15 WBC 16.3 H RBC 2.53 L Hgb 7.0 L Hct 22.6 L MCH MCHC RDW 18.4 H Plt Count Lymph % (Auto) [place] # (Auto) Eos # (Auto) Seg Neutrophils % Lymphocytes % (Manual) Eosinophils % (Manual) Basophils % (Manual) Nucleated RBC % Seg Neutrophils # Seg Neutrophils # Man Lymphocytes # (Manual) Monocytes # (Manual) Eosinophils # (Manual) Basophils # (Manual) Percent Retic PT INR Fibrinogen D-Dimer ABG pH POC ABG pCO2 POC ABG pO2 ABG pO2 ABG HCO3 ABG O2 Saturation ABG Base Excess ABG Hemoglobin ABG Oxyhemoglobin ABG Sodium ABG Potassium ABG Chloride ABG Glucose Oxyhemoglobin Carboxyhemoglobin Sodium Potassium Chloride Carbon Dioxide BUN 71 H Creatinine 3.1 H Glucose 183 H POC Glucose 155 H Hemoglobin A1c Calcium Phosphorus Magnesium AST ALT Alkaline Phosphatase Lactate Dehydrogenase C-Reactive Protein Total Protein Albumin Triglycerides 406 H Arterial Blood Glucose Arterial Blood Ionized Calcium Urine WBC (Auto) U Epithel Cells (Auto) Urine Creatinine Random Vancomycin Coronavirus (PCR) Crossmatch 04/11/21 04/11/21 04/11/21 05:46 11:34 11:50 WBC RBC Hgb 6.7 L Hct 20.8 L MCH MCHC RDW Plt Count Lymph % (Auto) [place] # (Auto) Eos # (Auto) Seg Neutrophils % Lymphocytes % (Manual) Eosinophils % (Manual) Basophils % (Manual) Nucleated RBC % Seg Neutrophils # Seg Neutrophils # Man Lymphocytes # (Manual) Monocytes # (Manual) Eosinophils # (Manual) Basophils # (Manual) Percent Retic PT INR Fibrinogen D-Dimer ABG pH POC ABG pCO2 POC ABG pO2 ABG pO2 ABG HCO3 ABG O2 Saturation ABG Base Excess ABG Hemoglobin ABG Oxyhemoglobin ABG Sodium ABG Potassium ABG Chloride ABG Glucose Oxyhemoglobin Carboxyhemoglobin Sodium Potassium Chloride Carbon Dioxide BUN Creatinine Glucose POC Glucose 157 H 132 H Hemoglobin A1c Calcium Phosphorus Magnesium AST ALT Alkaline Phosphatase Lactate Dehydrogenase C-Reactive Protein Total Protein Albumin Triglycerides Arterial Blood Glucose Arterial Blood Ionized Calcium Urine WBC (Auto) U Epithel Cells (Auto) Urine Creatinine Random Vancomycin Coronavirus (PCR) Crossmatch 04/11/21 04/11/21 04/11/21 13:39 17:49 17:50 WBC RBC Hgb 6.5 L Hct 21.4 L MCH MCHC RDW Plt Count Lymph % (Auto) [place] # (Auto) Eos # (Auto) Seg Neutrophils % Lymphocytes % (Manual) Eosinophils % (Manual) Basophils % (Manual) Nucleated RBC % Seg Neutrophils # Seg Neutrophils # Man Lymphocytes # (Manual) Monocytes # (Manual) Eosinophils # (Manual) Basophils # (Manual) Percent Retic PT INR Fibrinogen D-Dimer ABG pH POC ABG pCO2 POC ABG pO2 ABG pO2 ABG HCO3 ABG O2 Saturation ABG Base Excess ABG Hemoglobin ABG Oxyhemoglobin ABG Sodium ABG Potassium ABG Chloride ABG Glucose Oxyhemoglobin Carboxyhemoglobin Sodium Potassium Chloride Carbon Dioxide BUN Creatinine Glucose POC Glucose 136 H Hemoglobin A1c Calcium Phosphorus Magnesium AST ALT Alkaline Phosphatase Lactate Dehydrogenase C-Reactive Protein Total Protein Albumin Triglycerides Arterial Blood Glucose Arterial Blood Ionized Calcium Urine WBC (Auto) U Epithel Cells (Auto) Urine Creatinine Random Vancomycin Coronavirus (PCR) Crossmatch See Detail 04/12/21 04/12/21 04/12/21 00:25 00:29 02:52 WBC RBC Hgb 7.4 L Hct 23.5 L MCH MCHC RDW Plt Count Lymph % (Auto) [place] # (Auto) Eos # (Auto) Seg Neutrophils % Lymphocytes % (Manual) Eosinophils % (Manual) Basophils % (Manual) Nucleated RBC % Seg Neutrophils # Seg Neutrophils # Man Lymphocytes # (Manual) Monocytes # (Manual) Eosinophils # (Manual) Basophils # (Manual) Percent Retic PT INR Fibrinogen D-Dimer ABG pH 7.253 L POC ABG pCO2 POC ABG pO2 ABG pO2 79.6 L ABG HCO3 ABG O2 Saturation 94.1 L ABG Base Excess -3.6 L ABG Hemoglobin 8.1 L ABG Oxyhemoglobin ABG Sodium ABG Potassium ABG Chloride ABG Glucose Oxyhemoglobin 93.6 L Carboxyhemoglobin Sodium Potassium Chloride Carbon Dioxide BUN Creatinine Glucose POC Glucose 125 H Hemoglobin A1c Calcium Phosphorus Magnesium AST ALT Alkaline Phosphatase Lactate Dehydrogenase C-Reactive Protein Total Protein Albumin Triglycerides Arterial Blood Glucose Arterial Blood Ionized Calcium Urine WBC (Auto) U Epithel Cells (Auto) Urine Creatinine Random Vancomycin Coronavirus (PCR) Crossmatch 04/12/21 04/12/21 04/12/21 04:30 04:30 05:41 WBC 17.5 H RBC 2.68 L Hgb 7.6 L Hct 24.0 L MCH MCHC RDW 18.0 H Plt Count Lymph % (Auto) [place] # (Auto) Eos # (Auto) Seg Neutrophils % Lymphocytes % (Manual) Eosinophils % (Manual) Basophils % (Manual) Nucleated RBC % Seg Neutrophils # Seg Neutrophils # Man Lymphocytes # (Manual) Monocytes # (Manual) Eosinophils # (Manual) Basophils # (Manual) Percent Retic PT INR Fibrinogen D-Dimer ABG pH POC ABG pCO2 POC ABG pO2 ABG pO2 ABG HCO3 ABG O2 Saturation ABG Base Excess ABG Hemoglobin ABG Oxyhemoglobin ABG Sodium ABG Potassium ABG Chloride ABG Glucose Oxyhemoglobin Carboxyhemoglobin Sodium Potassium Chloride Carbon Dioxide BUN 87 H Creatinine 4.5 H Glucose 136 H POC Glucose 115 H Hemoglobin A1c Calcium Phosphorus 6.50 H Magnesium AST ALT Alkaline Phosphatase Lactate Dehydrogenase C-Reactive Protein Total Protein Albumin Triglycerides Arterial Blood Glucose Arterial Blood Ionized Calcium Urine WBC (Auto) U Epithel Cells (Auto) Urine Creatinine Random Vancomycin Coronavirus (PCR) Crossmatch 04/12/21 04/12/21 04/13/21 11:57 17:19 00:24 WBC RBC Hgb Hct MCH MCHC RDW Plt Count Lymph % (Auto) [place] # (Auto) Eos # (Auto) Seg Neutrophils % Lymphocytes % (Manual) Eosinophils % (Manual) Basophils % (Manual) Nucleated RBC % Seg Neutrophils # Seg Neutrophils # Man Lymphocytes # (Manual) Monocytes # (Manual) Eosinophils # (Manual) Basophils # (Manual) Percent Retic PT INR Fibrinogen D-Dimer ABG pH POC ABG pCO2 POC ABG pO2 ABG pO2 ABG HCO3 ABG O2 Saturation ABG Base Excess ABG Hemoglobin ABG Oxyhemoglobin ABG Sodium ABG Potassium ABG Chloride ABG Glucose Oxyhemoglobin Carboxyhemoglobin Sodium Potassium Chloride Carbon Dioxide BUN Creatinine Glucose POC Glucose 137 H 177 H 188 H Hemoglobin A1c Calcium Phosphorus Magnesium AST ALT Alkaline Phosphatase Lactate Dehydrogenase C-Reactive Protein Total Protein Albumin Triglycerides Arterial Blood Glucose Arterial Blood Ionized Calcium Urine WBC (Auto) U Epithel Cells (Auto) Urine Creatinine Random Vancomycin Coronavirus (PCR) Crossmatch 04/13/21 04/13/21 04/13/21 03:52 04:44 04:44 WBC 13.1 H RBC 2.57 L Hgb 7.3 L Hct 23.2 L MCH MCHC RDW 17.6 H Plt Count 73 L Lymph % (Auto) [place] # (Auto) Eos # (Auto) Seg Neutrophils % Lymphocytes % (Manual) Eosinophils % (Manual) Basophils % (Manual) Nucleated RBC % Seg Neutrophils # Seg Neutrophils # Man Lymphocytes # (Manual) Monocytes # (Manual) Eosinophils # (Manual) Basophils # (Manual) Percent Retic PT 16.0 H INR 1.16 H Fibrinogen D-Dimer ABG pH 7.195 L* POC ABG pCO2 POC ABG pO2 ABG pO2 98.9 H ABG HCO3 ABG O2 Saturation ABG Base Excess -2.9 L ABG Hemoglobin 7.4 L ABG Oxyhemoglobin ABG Sodium ABG Potassium ABG Chloride ABG Glucose Oxyhemoglobin 94.3 L Carboxyhemoglobin Sodium Potassium Chloride Carbon Dioxide BUN Creatinine Glucose POC Glucose Hemoglobin A1c Calcium Phosphorus Magnesium AST ALT Alkaline Phosphatase Lactate Dehydrogenase C-Reactive Protein Total Protein Albumin Triglycerides Arterial Blood Glucose Arterial Blood Ionized Calcium Urine WBC (Auto) U Epithel Cells (Auto) Urine Creatinine Random Vancomycin Coronavirus (PCR) Crossmatch 04/13/21 04/13/21 04/13/21 04:44 05:26 11:32 WBC RBC Hgb Hct MCH MCHC RDW Plt Count Lymph % (Auto) [place] # (Auto) Eos # (Auto) Seg Neutrophils % Lymphocytes % (Manual) Eosinophils % (Manual) Basophils % (Manual) Nucleated RBC % Seg Neutrophils # Seg Neutrophils # Man Lymphocytes # (Manual) Monocytes # (Manual) Eosinophils # (Manual) Basophils # (Manual) Percent Retic PT INR Fibrinogen D-Dimer ABG pH POC ABG pCO2 POC ABG pO2 ABG pO2 ABG HCO3 ABG O2 Saturation ABG Base Excess ABG Hemoglobin ABG Oxyhemoglobin ABG Sodium ABG Potassium ABG Chloride ABG Glucose Oxyhemoglobin Carboxyhemoglobin Sodium Potassium Chloride Carbon Dioxide BUN 75 H Creatinine 3.8 H Glucose 183 H POC Glucose 163 H 169 H Hemoglobin A1c Calcium Phosphorus 6.80 H Magnesium AST ALT Alkaline Phosphatase Lactate Dehydrogenase C-Reactive Protein Total Protein Albumin Triglycerides Arterial Blood Glucose Arterial Blood Ionized Calcium Urine WBC (Auto) U Epithel Cells (Auto) Urine Creatinine Random Vancomycin Coronavirus (PCR) Crossmatch 04/13/21 04/13/21 04/13/21 17:28 21:00 23:28 WBC RBC Hgb Hct MCH MCHC RDW Plt Count Lymph % (Auto) [place] # (Auto) Eos # (Auto) Seg Neutrophils % Lymphocytes % (Manual) Eosinophils % (Manual) Basophils % (Manual) Nucleated RBC % Seg Neutrophils # Seg Neutrophils # Man Lymphocytes # (Manual) Monocytes # (Manual) Eosinophils # (Manual) Basophils # (Manual) Percent Retic PT INR Fibrinogen D-Dimer ABG pH POC ABG pCO2 48.6 H POC ABG pO2 ABG pO2 ABG HCO3 ABG O2 Saturation ABG Base Excess ABG Hemoglobin 8.3 L ABG Oxyhemoglobin ABG Sodium 134.6 L ABG Potassium ABG Chloride ABG Glucose 243 H Oxyhemoglobin Carboxyhemoglobin 0.4 L Sodium Potassium Chloride Carbon Dioxide BUN Creatinine Glucose POC Glucose 174 H 207 H Hemoglobin A1c Calcium Phosphorus Magnesium AST ALT Alkaline Phosphatase Lactate Dehydrogenase C-Reactive Protein Total Protein Albumin Triglycerides Arterial Blood Glucose 243 H Arterial Blood Ionized Calcium Urine WBC (Auto) U Epithel Cells (Auto) Urine Creatinine Random Vancomycin Coronavirus (PCR) Crossmatch 04/14/21 04/14/21 04/14/21 04:43 04:43 05:28 WBC 11.8 H RBC 2.58 L Hgb 7.5 L Hct 23.4 L MCH MCHC RDW 17.1 H Plt Count 45 L Lymph % (Auto) [place] # (Auto) Eos # (Auto) Seg Neutrophils % Lymphocytes % (Manual) Eosinophils % (Manual) Basophils % (Manual) Nucleated RBC % Seg Neutrophils # Seg Neutrophils # Man Lymphocytes # (Manual) Monocytes # (Manual) Eosinophils # (Manual) Basophils # (Manual) Percent Retic PT INR Fibrinogen D-Dimer ABG pH POC ABG pCO2 POC ABG pO2 ABG pO2 ABG HCO3 ABG O2 Saturation ABG Base Excess ABG Hemoglobin ABG Oxyhemoglobin ABG Sodium ABG Potassium ABG Chloride ABG Glucose Oxyhemoglobin Carboxyhemoglobin Sodium Potassium Chloride Carbon Dioxide BUN 74 H Creatinine 3.1 H Glucose 220 H POC Glucose 200 H Hemoglobin A1c Calcium Phosphorus Magnesium AST ALT Alkaline Phosphatase Lactate Dehydrogenase C-Reactive Protein Total Protein Albumin Triglycerides Arterial Blood Glucose Arterial Blood Ionized Calcium Urine WBC (Auto) U Epithel Cells (Auto) Urine Creatinine Random Vancomycin Coronavirus (PCR) Crossmatch 04/14/21 04/14/21 04/14/21 11:10 16:20 21:00 WBC RBC Hgb Hct MCH MCHC RDW Plt Count Lymph % (Auto) [place] # (Auto) Eos # (Auto) Seg Neutrophils % Lymphocytes % (Manual) Eosinophils % (Manual) Basophils % (Manual) Nucleated RBC % Seg Neutrophils # Seg Neutrophils # Man Lymphocytes # (Manual) Monocytes # (Manual) Eosinophils # (Manual) Basophils # (Manual) Percent Retic PT INR Fibrinogen D-Dimer ABG pH 7.207 L POC ABG pCO2 67.6 H POC ABG pO2 143.7 H ABG pO2 ABG HCO3 ABG O2 Saturation ABG Base Excess ABG Hemoglobin 7.6 L ABG Oxyhemoglobin ABG Sodium 133.8 L ABG Potassium ABG Chloride ABG Glucose 158 H Oxyhemoglobin Carboxyhemoglobin Sodium Potassium Chloride Carbon Dioxide BUN Creatinine Glucose POC Glucose 160 H 168 H Hemoglobin A1c Calcium Phosphorus Magnesium AST ALT Alkaline Phosphatase Lactate Dehydrogenase C-Reactive Protein Total Protein Albumin Triglycerides Arterial Blood Glucose 158 H Arterial Blood Ionized Calcium Urine WBC (Auto) U Epithel Cells (Auto) Urine Creatinine Random Vancomycin Coronavirus (PCR) Crossmatch 04/14/21 04/15/21 04/15/21 23:53 08:20 11:10 WBC RBC Hgb Hct MCH MCHC RDW Plt Count Lymph % (Auto) [place] # (Auto) Eos # (Auto) Seg Neutrophils % Lymphocytes % (Manual) Eosinophils % (Manual) Basophils % (Manual) Nucleated RBC % Seg Neutrophils # Seg Neutrophils # Man Lymphocytes # (Manual) Monocytes # (Manual) Eosinophils # (Manual) Basophils # (Manual) Percent Retic PT INR Fibrinogen D-Dimer ABG pH 7.305 L POC ABG pCO2 48.3 H POC ABG pO2 ABG pO2 ABG HCO3 ABG O2 Saturation ABG Base Excess ABG Hemoglobin 7.5 L ABG Oxyhemoglobin ABG Sodium 134.1 L ABG Potassium ABG Chloride ABG Glucose 146 H Oxyhemoglobin Carboxyhemoglobin Sodium Potassium Chloride Carbon Dioxide BUN Creatinine Glucose POC Glucose 147 H 161 H Hemoglobin A1c Calcium Phosphorus Magnesium AST ALT Alkaline Phosphatase Lactate Dehydrogenase C-Reactive Protein Total Protein Albumin Triglycerides Arterial Blood Glucose 146 H Arterial Blood Ionized Calcium Urine WBC (Auto) U Epithel Cells (Auto) Urine Creatinine Random Vancomycin Coronavirus (PCR) Crossmatch 04/15/21 04/15/21 04/15/21 12:10 12:10 16:21 WBC RBC Hgb Hct MCH MCHC RDW Plt Count Lymph % (Auto) [place] # (Auto) Eos # (Auto) Seg Neutrophils % Lymphocytes % (Manual) Eosinophils % (Manual) Basophils % (Manual) Nucleated RBC % Seg Neutrophils # Seg Neutrophils # Man Lymphocytes # (Manual) Monocytes # (Manual) Eosinophils # (Manual) Basophils # (Manual) Percent Retic PT INR Fibrinogen D-Dimer ABG pH POC ABG pCO2 POC ABG pO2 ABG pO2 ABG HCO3 ABG O2 Saturation ABG Base Excess ABG Hemoglobin ABG Oxyhemoglobin ABG Sodium ABG Potassium ABG Chloride ABG Glucose Oxyhemoglobin Carboxyhemoglobin Sodium Potassium Chloride Carbon Dioxide BUN Creatinine Glucose POC Glucose 166 H 157 H Hemoglobin A1c Calcium Phosphorus Magnesium AST ALT Alkaline Phosphatase Lactate Dehydrogenase C-Reactive Protein Total Protein Albumin Triglycerides Arterial Blood Glucose Arterial Blood Ionized Calcium Urine WBC (Auto) U Epithel Cells (Auto) Urine Creatinine Random Vancomycin Coronavirus (PCR) Crossmatch See Detail 04/15/21 04/15/21 04/15/21 18:35 23:16 Unknown WBC 11.8 H RBC 2.41 L Hgb 7.1 L Hct 22.4 L MCH MCHC RDW 17.0 H Plt Count 38 L Lymph % (Auto) [place] # (Auto) Eos # (Auto) Seg Neutrophils % Lymphocytes % (Manual) Eosinophils % (Manual) Basophils % (Manual) Nucleated RBC % Seg Neutrophils # Seg Neutrophils # Man Lymphocytes # (Manual) Monocytes # (Manual) Eosinophils # (Manual) Basophils # (Manual) Percent Retic PT INR Fibrinogen D-Dimer ABG pH POC ABG pCO2 POC ABG pO2 ABG pO2 ABG HCO3 ABG O2 Saturation ABG Base Excess ABG Hemoglobin ABG Oxyhemoglobin ABG Sodium ABG Potassium ABG Chloride ABG Glucose Oxyhemoglobin Carboxyhemoglobin Sodium Potassium Chloride Carbon Dioxide BUN Creatinine Glucose POC Glucose 148 H Hemoglobin A1c Calcium Phosphorus Magnesium AST ALT Alkaline Phosphatase Lactate Dehydrogenase C-Reactive Protein Total Protein Albumin Triglycerides Arterial Blood Glucose Arterial Blood Ionized Calcium Urine WBC (Auto) 156.0 H U Epithel Cells (Auto) 15.0 H Urine Creatinine Random Vancomycin Coronavirus (PCR) Crossmatch 04/15/21 04/15/21 04/16/21 Unknown Unknown 04:54 WBC 15.4 H RBC 2.59 L Hgb 7.7 L Hct 24.1 L MCH MCHC RDW 16.6 H Plt Count 42 L Lymph % (Auto) [place] # (Auto) Eos # (Auto) Seg Neutrophils % Lymphocytes % (Manual) Eosinophils % (Manual) Basophils % (Manual) Nucleated RBC % Seg Neutrophils # Seg Neutrophils # Man Lymphocytes # (Manual) Monocytes # (Manual) Eosinophils # (Manual) Basophils # (Manual) Percent Retic PT 16.3 H INR 1.18 H Fibrinogen D-Dimer ABG pH POC ABG pCO2 POC ABG pO2 ABG pO2 ABG HCO3 ABG O2 Saturation ABG Base Excess ABG Hemoglobin ABG Oxyhemoglobin ABG Sodium ABG Potassium ABG Chloride ABG Glucose Oxyhemoglobin Carboxyhemoglobin Sodium Potassium Chloride Carbon Dioxide BUN 67 H Creatinine 3.3 H Glucose 155 H POC Glucose Hemoglobin A1c Calcium 8.3 L Phosphorus 5.70 H Magnesium AST 85 H ALT 63 H Alkaline Phosphatase Lactate Dehydrogenase C-Reactive Protein Total Protein Albumin 2.4 L Triglycerides Arterial Blood Glucose Arterial Blood Ionized Calcium Urine WBC (Auto) U Epithel Cells (Auto) Urine Creatinine Random Vancomycin Coronavirus (PCR) Crossmatch 04/16/21 04/16/21 04/16/21 04:54 05:23 11:06 WBC RBC Hgb Hct MCH MCHC RDW Plt Count Lymph % (Auto) [place] # (Auto) Eos # (Auto) Seg Neutrophils % Lymphocytes % (Manual) Eosinophils % (Manual) Basophils % (Manual) Nucleated RBC % Seg Neutrophils # Seg Neutrophils # Man Lymphocytes # (Manual) Monocytes # (Manual) Eosinophils # (Manual) Basophils # (Manual) Percent Retic PT INR Fibrinogen D-Dimer ABG pH POC ABG pCO2 POC ABG pO2 ABG pO2 ABG HCO3 ABG O2 Saturation ABG Base Excess ABG Hemoglobin ABG Oxyhemoglobin ABG Sodium ABG Potassium ABG Chloride ABG Glucose Oxyhemoglobin Carboxyhemoglobin Sodium Potassium Chloride Carbon Dioxide BUN 82 H Creatinine 3.4 H Glucose 142 H POC Glucose 118 H 133 H Hemoglobin A1c Calcium 8.2 L Phosphorus Magnesium AST ALT Alkaline Phosphatase Lactate Dehydrogenase C-Reactive Protein Total Protein Albumin Triglycerides Arterial Blood Glucose Arterial Blood Ionized Calcium Urine WBC (Auto) U Epithel Cells (Auto) Urine Creatinine Random Vancomycin Coronavirus (PCR) Crossmatch Chest x-ray: pending Allied health notes reviewed: nursing
--- NOTE | 2021-04-16 15:15 | Progress Note ---
Assessment and Plan Cultures: SARS CoV2 PCR: Positive 03/13/2021 blood culture: No growth Resp cultures 03/14/2021: MSSA 03/23/2021 blood culture: No growth 03/23/2021 sputum culture: Usual respiratory maury 03/29/2021 blood culture: no growth 04/06/2021 blood culture: In process 04/06/2021 endotracheal aspirate culture: E faecalis 04/06/2021 urine culture: No growth A/P: 31-year-old female with asthma, morbid obesity, Crohn's disease admitted with cough and shortness of breath: #Septic shock: s/p abx. Persistently febrile, on multiple pressors. Has previously completed Ancef followed by Cefepime, and now on Aztreonam, Vancomycin and levofloxacin. #Bilateral pneumonia: Secondary to COVID-19. Severe disease, then developed MSSA in the lungs. s/p Actemra 03/15/2021, completed steroids for COVID. D-dimer very high initially, which has shown improvement. #Acute hypoxic respiratory failure: on the vent. #Rash with eosinophilia: Question of drug reaction, remains off Cefepime. 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 #Acute renal failure: progressive. Nephrology following, on HD. #Acute asthma exacerbation #Morbid obesity Recs: -f/u new cultures: blood culture -Continue micafungin -Continue vancomycin goal trough 10-20 -Continue meropenem -Complete 8 days of above -on steroids per ICU -Unable to complete CT -extremely poor prognosis, recommend palliative care Champ Ling MD [facility] ([facility] O: [phone] F: [phone] Subjective Date of service: 04/16/21 Principal diagnosis: Ac hypoxemic resp failure; AE-Asthma; SAI; Crohn's; COVID- 19; Pneumonia Interval history: Afebrile with low-grade temperatures White count 15.4. Objective - Exam Narrative Exam: Physical exam deferred to reduce risk of transmission of COVID-19. Please refer to primary team's note. - Constitutional Vitals: Vital Signs Temp Pulse Resp BP Pulse Ox 99.9 F H 108 H 30 H 85/54 100 04/16/21 11:24 04/16/21 11:30 04/16/21 11:30 04/16/21 09:15 04/16/21 11:30 Temperature -Last 24 Hours Temperature 99.9 F Temperature 99.9 F Temperature 100.2 F Temperature 98.6 F Temperature 99.7 F Temperature 99.7 F Temperature 100 F Temperature 100.2 F Temperature 100 F Temperature 99.9 F Temperature 100.2 F Temperature 100.2 F Temperature 100.2 F Temperature 100.9 F Temperature 101.5 F - Labs CBC & Chem 7: 04/16/21 04:54 04/16/21 04:54 Labs: Abnormal lab results 04/15/21 04/15/21 04/15/21 Range/Units 12:10 16:21 18:35 WBC (4.5-11.0) K/mm3 RBC (3.65-5.03) M/mm3 Hgb (10.1-14.3) gm/dl Hct (30.3-42.9) % RDW (13.2-15.2) % Plt Count (140-440) K/mm3 BUN (7-17) mg/dL Creatinine (0.6-1.2) mg/dL Glucose (65-100) mg/dL POC Glucose 157 H (70-105) mg/dL Calcium (8.4-10.2) mg/dL Urine WBC (Auto) 156.0 H (0.0-6.0) /HPF U Epithel Cells (Auto) 15.0 H (0-13.0) /HPF Crossmatch See Detail 04/15/21 04/16/21 04/16/21 Range/Units 23:16 04:54 04:54 WBC 15.4 H (4.5-11.0) K/mm3 RBC 2.59 L (3.65-5.03) M/mm3 Hgb 7.7 L (10.1-14.3) gm/dl Hct 24.1 L (30.3-42.9) % RDW 16.6 H (13.2-15.2) % Plt Count 42 L (140-440) K/mm3 BUN 82 H (7-17) mg/dL Creatinine 3.4 H (0.6-1.2) mg/dL Glucose 142 H (65-100) mg/dL POC Glucose 148 H (70-105) mg/dL Calcium 8.2 L (8.4-10.2) mg/dL Urine WBC (Auto) (0.0-6.0) /HPF U Epithel Cells (Auto) (0-13.0) /HPF Crossmatch 04/16/21 04/16/21 Range/Units 05:23 11:06 WBC (4.5-11.0) K/mm3 RBC (3.65-5.03) M/mm3 Hgb (10.1-14.3) gm/dl Hct (30.3-42.9) % RDW (13.2-15.2) % Plt Count (140-440) K/mm3 BUN (7-17) mg/dL Creatinine (0.6-1.2) mg/dL Glucose (65-100) mg/dL POC Glucose 118 H 133 H (70-105) mg/dL Calcium (8.4-10.2) mg/dL Urine WBC (Auto) (0.0-6.0) /HPF U Epithel Cells (Auto) (0-13.0) /HPF Crossmatch
--- NOTE | 2021-04-16 16:36 | Progress Note ---
<CRISTY PASCUAL - Last Filed: 04/16/21 16:32> Assessment and Plan Assessment and plan: This is a 31-year-old female with asthma, morbid obesity and Crohn's disease admitted for COVID-19 pneumonia and and acute renal failure Neuro: Sedated -Intubated and sedated with propofol, fentanyl, Versed -sedation to vent synchrony -Seroquel -As needed ECG for QTC monitoring -Daily SAT/SBT when appropriate -Maintain sleep-wake cycle -Avoid delirium -CT head with no acute abnormality CV: Tachycardia, s/p hypertension now with hypotension -ST on the monitor -Vasopressor support with levophed, vasopressin -Maintain MAP above 65 -Blood pressure monitoring via keesha Respiratory: Acute hypoxic respiratory failure, asthma exacerbation, COVID-19 pneumonia, ARDS, RUL PNA, bronchospasm (resolved) -Patient was intubated on 03/14 for respiratory distress and inability to protect airway with her ETT exchange on 04/11 -plan to consult surgery next week for trach/peg -Intubated with 7.50 ETT at 24 at the lip -A.m. vent settings: AC/PCV rate 30, FiO2 60%, PEEP 10, drive pressure 35 -See RT notes for titration -ABGs per CCM -VAP bundle -SPO2 monitoring -CCM/pulmonary consulted, appreciate recommendations -S/p BiPAP therapy -S/p Bronc on 04/11 which showed alveolar hemorrhage GI: transaminitis, h/o MO and Crohn's disease -Nutrition consulted, appreciate recommendations -Tube feeding: Nepro -Free water 100 mL every 4 hours -BR: [place] -PPI -24 hours +2013 ml : Acute kidney injury likely secondary to Acute tubular necrosis which progressed to HD -Nephrology consulted, appreciate recommendations -Vas-Cath placed 03/15 -HD initiated 03/15 -Daily weights -Strict intake and output -Avoid nephrotoxic medications -Renally dose medications -Trend BMP -Intervene for electrolytes as needed -HD per nephrology -s/p Bicarb gtt ID: COVID-19 pneumonia, leukocytosis, Staph aureus in tracheal aspirate, Conjunctival hemorrhage, ?HUS vs drug reaction -Infectious disease consulted, appreciate recommendations -03/14 COVID-19 PCR (+), 04/10 COVID PCR (-) -1 g of methylprednisone for 3 days (03/31 through 04/02 with taper) -Restarted on stress dose steroids on 04/10 -started taper 04/15 (decrease by 25mg) -s/p Actemra per ID -Per ID patient is on a candidate for remdesivir due to renal failure -Patient received 1 dose of remdesivir on 03/14 -Prophylactic anticoagulation based on D-dimer -s/p Cipro/Dex drops for 5 days -Abx per ID: Levaquin, Merrem, micafungin -Trend COVID-19 inflammatory markers -Isolation/droplet precautions for 21 days -Vitamin C/vitamin D/zinc -follow culture data -Monitor WBC and fever curve -s/p plasmapheresis x2 (04/01-04/02) -LDH 509, Eliezer fibrinogen 491 -s/p Artic sun for temp regulation -04/13 given 1g solumedoral x1 for possible anaphylaxis reaction post contrast on -benadryl q6 for 3 days (04/13-04/14) Heme: Leukocytosis, elevated D-dimer -Trend CBC -Transfuse hemoglobin less than 7 -Eliquis restarted 03/29 -SCDs to bilateral lower extremity while in bed -BLE duplex US shows no DVT -HIT negative Endo: Hyperglycemia -Hemoglobin A1c 6.3 -SSI -Accu-Cheks every 6 -Avoid hypoglycemia The high probability of a clinically significant, sudden or life threatening deterioration of the [multiple] system(s) required my full and direct attention, intervention and personal management. The aggregate critical care time was [60] minutes. This time is in addition to time spent performing reported procedures but includes the following: [x] Data Review and interpretation [x] Patient assessment and monitoring of vital signs [x] Documentation [x] Medication orders and management Disposition Plan: ICU Total Time Spent with Patient (Minutes): 60 History Interval history: This is a 31-year-old female with asthma, history of prior intubation x1 in 02/2019, morbid obesity and Crohn's disease who presented to the emergency department on 03/13 with complaints of severe wheezing and shortness of breath over the past 4 days which is not relieved by home nebulizer treatments or rescue inhalers, cough without fever and no loss of sense of taste or smell. Patient is currently on vaccinated for COVID-19. In the emergency department patient was placed on BiPAP given steroids magnesium Solu-Medrol with improvement, CXR shows a streak of possible pneumonia. Patient was made a COVID-19 PUI and admitted to the hospital service. Patient was initially admitted to IMCU on BiPAP and was subsequently intubated due to severe respiratory distress and inability to protect her airway. Patient was admitted with acute hypoxic respiratory failure, acute asthma exacerbation, right upper lobe pneumonia, and as a COVID-19 PUI. Hospital Course to Date: 03/14/21- Patient is s/p intubation from this morning, sedated on propofol and fentanyl RASS -3 to -4. ETT above the clavicles advanced by 2cc. Continue nebs and IV steroids per [facility]. COVID swab pending. Hyperkalemia improved, X1 dose of kayaxalate ordered. Low BP and low urine output this am, fluid bolus challenge, 500cc of NS bolus given. Continue to monitor electrolytes and renal function, repeat BMP this afternoon. 03/15: Patient's renal function noted to be significantly worse today, patient was hyperkalemic and this was medically treated. Patient initiated on hemodialysis today. infectious disease was consulted today. 03/16: No acute events reported overnight, patient received hemodialysis yesterday. Patient is currently on propofol and fentanyl. 03/17: Patient received hemodialysis today, patient is slightly acidotic on ABG however [facility] is allowing for permissive hypercapnia, tracheal aspirate with Staph aureus and ID is aware. 03/18: Patient is having high residuals today and Reglan was started, patient will receive HD daily per nephrology, correct her change in FiO2 as tolerated. 03/19: HD per nephrology today, antibiotics changed to cefazolin. Patient did not tolerate tube feedings as she had high residuals this morning and they were turned off. Not restarted yet. Updated family at bedside today 03/20: HD today, ddimer noted to be >1000, Tolerating trickle TF. Stat BLE dopplar US 03/21: Patient is not tolerating TF, CXR shows worsening infiltrates, [facility] made changes to vent, TF on hold and started on IVF. 03/22/21- Patient remains intubated and on sedation. Persistent vomiting, TF held overnight, no documented BM, on reglan BR added, Shaun citarte & supp. HD today. Plan to restart TF at 10ml/hr, will reevaluate in the am. Persistent thrombocytopenia, Hep on hold, HIT panel ordered, PO eliquis initiated. 03/23/21- Patient remains on the vent and sedated on propofol and fentanyl RASS - 2 to -3. Possible SAT today as tolerated. Patient tolerated trickle feeds overnight, plan to advance TF by 10cc Q8 to 12hrs. Continue current BR and continue reglan for now. Slightr worsening in acidosis from this am, d/w [facility] vent setting adjusted, will repeat ABG at 9pm. 03/24/21- Patient is on the vent and sedated, on fentanyl and propfol. Bilateral subconjunctival hemorrhage with periorbital edema noted this am, pupils are round and reactive, will Cipro/Dex [id number]. Worsening of kidney function from today's labs, plan for HD per Nephro. 03/25/21- Patient remains intubated and on sedatin, RASS 0 to -1, no longer on pressors. Sudden drop in H&H this am, bilateral subconjunctival hemorrhage with no sig change, no signs of any active bleeding. Patient appears neurologically intact, following commands, pupils are round and reactive with + gag and cough, moved all extremities. D/w [facility] patient is too unstable for CT at this time. Eliquis D/Devaughn, 1unit of PRBC ordered. Will continue to trend CBC. Plan for another section of HD today 03/26/21- Patient remains on the vent and sedated. VENICE reported from overnight. Plan for HD again today. H&H back up and stable, no AC at this time, SCDs for VTE phro. D/w [facility] patient is still too unstable for CT scan, will continue neuro exam and will continue to monitor H&H. 03/27/21- VENICE overnight. remains on the vent and sedated. Red localized rashes noted in patient upper chest and face, will r/o allergic reaction,CBC with auto diff and urine eosinophils ordered. Plan for HD today per Nephro. 03/28/21- Patient remains on the vent and sedated. Persistent fevers overnight unrelieved with antipyretic, currently on a cooling blanket. Back on pressors for hypotension, patient already on IV abx, last blood cultureX2 and sputum culture from 03/23 were negative. Continue IV abx, will reculture patient, orders placed for B.culture and sputum culture. ID is also on consult. will continue F/u on culture and continue to monitor BMP and CBC. 03/29: Patient restarted on prednisone given splotchy rash, will resume apixaban for VTE prophylaxis and repeat ABG at 9 PM. Remains with leukocytosis, elevated BUN/creatinine, elevated triglycerides and on Levophed 03/30: HD today, rash is still present and started on IV steroids. plt is low today but will continue to monitor. CCM made changes to vent-> decrease in MV. ABG in the pm and possible punch biopsy tomorrow if rash is not improved. propofol changed to versed 03/31: Heme/oncology consulted yesterday, will start patient on plasmapheresis for possible HUS. Cefepime discontinued today as today was the last day. Patient started on pulse dose steroids of 1 g/day for 3 days. Some improvement noted to eyes this morning. Patient was febrile overnight and received ibuprofen overnight. Acetaminophen allergy confirmed with family, allergy is only to oxycodone and hydrocodone but not the acetaminophen component. Confirmed by family patient has no reaction to [id number] Tylenol. Remains on vasopressor support and sedated with fentanyl, propofol and Versed. Vent mode changed to pressure control ventilation. Patient started on Arctic sun for fever control. Mother updated over telephone this a.m. and this p.m. family meeting held with her mother, sister x 2 and brother and with 2 other unknown people over the phone (1 female and one male) and nurse. Family states that patient is likely to an antibiotic possibly penicillins. This information was not available to us before. 04/01: Hyperkalemia medically treated, patient scheduled for dialysis today, plasmapheresis for possible HUS scheduled for today, steroids should be ending tomorrow, generalized rash/discoloration minimally better. Patient still remains on Arctic sun for temperature regulation. Vent changes per [facility]. 04/02: plasma exchange, tessa on sedatives and vasopressor support, HD for ultrafiltration 04/03: remains on artic sun but water temp noted to be in the 30s today. Completed plasmapheresis x2 and is now on steroid taper however minimal change noted to rash/discoloration. Eyes are more clear today but remain red under lids (tops of eye). Acidosis noted on ABG. Hyperkalemia and hyperphosphatemeia persists. Sedation increased for RR in to the 40s-50s and vasopressors being titrated as tolerated. 04/04: Patient receiving 1 unit PRBC per heme's recommendation, increased respiratory effort noted, patient is acidotic on ABG and given 1 amp of bicarb in addition to bicarb drip, sedation increased for vent synchrony. No HD per nephrology given tachycardia. Seroquel started. 04/05: Patient on the vent and sedated, still on 3 pressors. Patient to wean off propofol gtt, seroquel increased. Patient afebrile overnight, however artic sun is still in place. Will attempt to take off the cooling blanket today, will continue to assess for fever curve. Continue current IV Abx therapy per ID. Plan for HD today per Nephro. Patient's family at the bedside, thoroughly discussed patient's condition and overall poor prognosis. All questions and concerns were addressed. Team will continue to f/u with family with further updates. 04/06: Patient remains sedated and on the vent, still on fent and versed, propofol was weaned off. Low Hbg this am, 2 units of PRBCs ordered. Patient febr ile overnight, patient completed IV abx course, leukocytosis downtrending. c/f for possible drug fever vs DVT, BLE doppler reordered to R/O DVT. Patient remains on high dose pressors, wean pressors as tolerated for MAP of 65. 04/07: Patient appears to be in distress thi am, tachypneic and tachycardic, with increased work of breathing. Propofol stopped this am. IV push versed given and versed gtt was increased to max. D/w [facility] plan to possibly restart propofol since patient is not tolerating sedation wean. Patient remains febrile throughout, pancultured yesterday by ID and IV abx was restarted. Overall poor prognosis at this time. Patient's mother and siblings at the bedside were update on patient's status. Plan for possible family meeting with the care team Monday. 04/08: Patient with worsening CXR this am, increased of vent setting overnight, respiratory acidosis from this am ABG. Patient remains febrile, IV ABx switched to Merrem for VAP coverage, ID is following. Patient remains on sedation and on pressors. Low hemoglobin this am, 1unit of PRBCs ordered. Hyperkalemia noted, per Nephro it is stable no intervention at this time plan for HD tomorrow. Spoke with patient's mom, meeting postponed for possibly next week, case management to arrange. Hospitalist also called and updated patient's mother. Team will continue to follow up. 04/09: Patient condition remains unchanged, on the vent, on sedation, and on 2 pressors. Still febrile, on IV Abx, X1 set of fungal blood culture ordered. D/w ID recommended to start micafungin 100mg Qday. Hyperkalemic this am, plan for HD today. 04/10: VENICE overnight. Patient remains on the vent and sedated. Afebrile overnight, stress steroids added, pressors requirement is going down. HD overnight 3L out, plan for HD again today. Continue IV Abx and antifungal, F/u on culture data. 04/11: Patient remains on the vent and sedated, on minimal pressors this am. Tachycardic HR in the 130-140s this am. Per RN 4L out in HD yesterday, X1 dose of 25% Albumin given. Bloody drainage with clots also noted from patient nose, mouth, and ETT, Hbg 7 this am. Will hold AC for now, serial H&H ordered, transfuse if Hbg less than 7. 04/12: Patient was able to get HD today, Levaquin was stopped by ID. Consider CT chest/abdomen/pelvis when feasible per ID. Patient remains tachycardic. Was febrile most of the day however temperature decreased with icing and tylenol. 04/13: Patient had a CT chest, abdomen/pelvis with oral contrast and CT head today. Patient received 1 unit PRBC today given down trending of H/H with continual bloody drainage from mouth/nose. Patient will receive hemodialysis today. Patient started on Benadryl every 6, received 1 g of Solu-Medrol x1 for apparent angioedema post CT with contrast. 04/14: family meeting today with Dr. Noble. Continue supportive care. Thrombocytopenia today and given 1 units platelets. Vasopressors where weaned off overnight but restarted this morning for low maps. Will consider trach/peg next week with lower vent settings. 04/15: started taper on steroids, 1 units prbc per hem/onc, holding HD today per nephrology for ST. Still febrile, will reculture today. 04/16: Was able to be titrated off Levophed today. Was taken off vaso overnight and this was restarted today which briefly helped HR which was losw 100s. Weaning fentanyl and Versed as tolerated. HD today. Patient tachy this afternoon. Hospitalist Physical - Constitutional Vitals: Temp Pulse Resp BP Pulse Ox 101.5 F H 108 H 30 H 85/54 100 04/16/21 16:19 04/16/21 11:30 04/16/21 11:30 04/16/21 09:15 04/16/21 11:30 General appearance: Present: no acute distress, well-nourished, obese, other (Intubated and sedated) - EENT Eyes: Present: PERRL, EOM intact ENT: hearing intact, clear oral mucosa, dentition normal - Neck Neck: Present: normal ROM - Respiratory Respiratory effort: normal Respiratory: bilateral: diminished - Cardiovascular Rhythm: regular Heart Sounds: Present: S1 & S2 - Extremities Extremities: no ischemia, pulses intact, pulses symmetrical, normal temperature Extremity abnormal: edema, other (Dry skin, blistering, generalized open areas) Peripheral Pulses: within normal limits - Abdominal General gastrointestinal: soft, non-tender, non-distended, normal bowel sounds - Integumentary Integumentary: Present: warm, dry - Psychiatric Psychiatric: other (Opens eyes to voice) - Neurologic Neurologic: other (Opens eyes to voice, intact cough/gag, pupils equal round reactive) - Allied Health Allied health notes reviewed: nursing, RT, social work Results - Labs CBC & Chem 7: 04/16/21 04:54 04/16/21 04:54 Labs: Laboratory Last Values WBC 15.4 K/mm3 (4.5-11.0) H 04/16/21 04:54 RBC 2.59 M/mm3 (3.65-5.03) L 04/16/21 04:54 Hgb 7.7 gm/dl (10.1-14.3) L 04/16/21 04:54 Hct 24.1 % (30.3-42.9) L 04/16/21 04:54 MCV 93 fl (79-97) 04/16/21 04:54 MCH 30 pg (28-32) 04/16/21 04:54 MCHC 32 % (30-34) 04/16/21 04:54 RDW 16.6 % (13.2-15.2) H 04/16/21 04:54 Plt Count 42 K/mm3 (140-440) L 04/16/21 04:54 Lymph % (Auto) 10.7 % (13.4-35.0) L 03/28/21 09:37 Mcpherson % (Auto) 5.2 % (0.0-7.3) 03/28/21 09:37 Eos % (Auto) Butting Saw Operator 04/07/21 03:50 Baso % (Auto) 0.2 % (0.0-1.8) 03/28/21 09:37 Lymph # (Auto) 1.7 K/mm3 (1.2-5.4) 03/28/21 09:37 Mcpherson # (Auto) 0.9 K/mm3 (0.0-0.8) H 03/28/21 09:37 Eos # (Auto) 0.6 K/mm3 (0.0-0.4) H 03/28/21 09:37 Baso # (Auto) 0.0 K/mm3 (0.0-0.1) 03/28/21 09:37 Add Manual Diff Complete 04/07/21 03:50 Total Counted 100 04/07/21 03:50 Seg Neutrophils % 80.0 % (40.0-70.0) H 03/28/21 09:37 Seg Neuts % (Manual) 67.0 % (40.0-70.0) 04/07/21 03:50 Lymphocytes % (Manual) 10.0 % (13.4-35.0) L 04/07/21 03:50 Monocytes % (Manual) 4.0 % (0.0-7.3) 04/07/21 03:50 Eosinophils % (Manual) 19.0 % (0.0-4.3) H 04/07/21 03:50 Basophils % (Manual) 2.0 % (0.0-1.8) H 04/03/21 04:30 Nucleated RBC % 2.0 % (0.0-0.9) H 04/07/21 03:50 Seg Neutrophils # 13.0 K/mm3 (1.8-7.7) H 03/28/21 09:37 Seg Neutrophils # Man 17.9 K/mm3 (1.8-7.7) H 04/07/21 03:50 Band Neutrophils # 0.0 K/mm3 04/07/21 03:50 Lymphocytes # (Manual) 2.7 K/mm3 (1.2-5.4) 04/07/21 03:50 Abs React Lymphs (Man) 0.0 K/mm3 04/07/21 03:50 Monocytes # (Manual) 1.1 K/mm3 (0.0-0.8) H 04/07/21 03:50 Eosinophils # (Manual) 5.1 K/mm3 (0.0-0.4) H 04/07/21 03:50 Basophils # (Manual) 0.0 K/mm3 (0.0-0.1) 04/07/21 03:50 Metamyelocytes # 0.0 K/mm3 04/07/21 03:50 Myelocytes # 0.0 K/mm3 04/07/21 03:50 Promyelocytes # 0.0 K/mm3 04/07/21 03:50 Blast Cells # 0.0 K/mm3 04/07/21 03:50 WBC Morphology Not Reportable 04/07/21 03:50 Hypersegmented Neuts Not Reportable 04/07/21 03:50 Hyposegmented Neuts Not Reportable 04/07/21 03:50 Hypogranular Neuts Not Reportable 04/07/21 03:50 Smudge Cells Not Reportable 04/07/21 03:50 Toxic Granulation Not Reportable 04/07/21 03:50 Toxic Vacuolation Not Reportable 04/07/21 03:50 Dohle Bodies Not Reportable 04/07/21 03:50 Pelger-Huet Anomaly Not Reportable 04/07/21 03:50 Bridgette Rods Not Reportable 04/07/21 03:50 Platelet Estimate Consistent w auto 04/07/21 03:50 Clumped Platelets Not Reportable 04/07/21 03:50 Plt Clumps, EDTA Not Reportable 04/07/21 03:50 Large Platelets Not Reportable 04/07/21 03:50 Giant Platelets Not Reportable 04/07/21 03:50 Platelet Satelliting Not Reportable 04/07/21 03:50 Plt Morphology Comment Not Reportable 04/07/21 03:50 RBC Morphology Not Reportable 04/07/21 03:50 Dimorphic RBCs Not Reportable 04/07/21 03:50 Polychromasia Not Reportable 04/07/21 03:50 Hypochromasia Not Reportable 04/07/21 03:50 Poikilocytosis Not Reportable 04/07/21 03:50 Anisocytosis 1+ 04/07/21 03:50 Microcytosis Not Reportable 04/07/21 03:50 Macrocytosis Not Reportable 04/07/21 03:50 Spherocytes Not Reportable 04/07/21 03:50 Pappenheimer Bodies Not Reportable 04/07/21 03:50 Sickle Cells Not Reportable 04/07/21 03:50 Target Cells 1+ 04/07/21 03:50 Tear Drop Cells Not Reportable 04/07/21 03:50 Ovalocytes Not Reportable 04/07/21 03:50 Helmet Cells Not Reportable 04/07/21 03:50 [place] Bodies Not Reportable 04/07/21 03:50 Mar Lin Rings Not Reportable 04/07/21 03:50 Balaji Cells Not Reportable 04/07/21 03:50 Bite Cells Not Reportable 04/07/21 03:50 Crenated Cell Not Reportable 04/07/21 03:50 Elliptocytes Not Reportable 04/07/21 03:50 Acanthocytes (Spur) Not Reportable 04/07/21 03:50 Rouleaux Not Reportable 04/07/21 03:50 Hemoglobin C Crystals Not Reportable 04/07/21 03:50 Schistocytes Not Reportable 04/07/21 03:50 Malaria parasites Not Reportable 04/07/21 03:50 Percent Retic 4.52 % (0.78-2.58) H 03/31/21 09:49 Vaibhav Bodies Not Reportable 04/07/21 03:50 Hem Pathologist Commnt No 04/07/21 03:50 PT 16.3 Sec. (12.2-14.9) H 04/15/21 Unknown INR 1.18 (0.87-1.13) H 04/15/21 Unknown APTT 28.9 Sec. (24.2-36.6) 04/04/21 07:55 Fibrinogen 400 mg/dl (211-480) 04/14/21 09:45 D-Dimer 2696.79 ng/mlDDU (0-234) H 04/08/21 04:40 Heparin Anti-Xa, Unfract TNR 03/22/21 08:20 ABG pH 7.305 (7.320-7.450) L 04/15/21 08:20 POC ABG pCO2 48.3 mmHg (32.0-48.0) H 04/15/21 08:20 ABG pCO2 68.6 mm Hg 04/13/21 03:52 POC ABG pO2 85.2 mmHg (83-108) 04/15/21 08:20 ABG pO2 98.9 mm Hg (80.0-90.0) H 04/13/21 03:52 POC ABG HCO3 23.5 04/15/21 08:20 ABG HCO3 25.5 mmol/L (20.0-26.0) 04/13/21 03:52 ABG O2 Saturation 95.6 (0-100) 04/15/21 08:20 ABG O2 Content 10.0 (0.0-44) 04/13/21 03:52 POC ABG Base Excess -2.7 04/15/21 08:20 ABG Base Excess -2.9 mmol/L (-2.0-3.0) L 04/13/21 03:52 ABG Hemoglobin 7.5 (12.0-17.5) L 04/15/21 08:20 ABG Oxyhemoglobin 94.6 (94-98) 04/15/21 08:20 ABG Carboxyhemoglobin 1.9 % (0.0-5.0) 04/13/21 03:52 ABG Methemoglobin 0.3 (0.0-1.5) 04/15/21 08:20 ABG Sodium 134.1 mmol/L (136.0-145.0) L 04/15/21 08:20 ABG Potassium 4.0 mmol/L (3.40-4.50) 04/15/21 08:20 ABG Chloride 101.0 mmol/L (98-107) 04/15/21 08:20 ABG Glucose 146 mg/dL (65-95) H 04/15/21 08:20 ABG Lactate Cancelled 04/03/21 20:45 Oxyhemoglobin 94.3 % (95.0-99.0) L 04/13/21 03:52 Carboxyhemoglobin 0.7 (0.5-1.5) 04/15/21 08:20 FiO2 65 % 04/13/21 03:52 FiO2 % 60 04/15/21 08:20 Sodium 140 mmol/L (137-145) 04/16/21 04:54 Potassium 4.4 mmol/L (3.6-5.0) 04/16/21 04:54 Chloride 102.0 mmol/L (98-107) 04/16/21 04:54 Carbon Dioxide 23 mmol/L (22-30) 04/16/21 04:54 Anion Gap 19 mmol/L 04/16/21 04:54 BUN 82 mg/dL (7-17) H 04/16/21 04:54 Creatinine 3.4 mg/dL (0.6-1.2) H 04/16/21 04:54 Estimated GFR 19 ml/min 04/16/21 04:54 BUN/Creatinine Ratio 24 % 04/16/21 04:54 Glucose 142 mg/dL (65-100) H 04/16/21 04:54 POC Glucose 133 mg/dL (70-105) H 04/16/21 11:06 Hemoglobin A1c 6.3 % (4-6) H 03/15/21 05:09 Lactic Acid 0.80 mmol/L (0.7-2.0) 04/07/21 03:50 Calcium 8.2 mg/dL (8.4-10.2) L 04/16/21 04:54 Phosphorus 5.70 mg/dL (2.5-4.5) H 04/15/21 Unknown Magnesium 1.90 mg/dL (1.7-2.3) 04/15/21 Unknown Ferritin 151.6 ng/mL (10.0-200.0) 03/18/21 04:30 Total Bilirubin 0.40 mg/dL (0.1-1.2) 04/15/21 Unknown Bilirubin Cancelled 04/03/21 20:45 AST 85 units/L (5-40) H 04/15/21 Unknown ALT 63 units/L (7-56) H 04/15/21 Unknown Alkaline Phosphatase 94 units/L (35-129) 04/15/21 Unknown Lactate Dehydrogenase 394 units/L (91-180) H 04/05/21 05:20 C-Reactive Protein 26.10 mg/dL (0.00-1.30) H 04/08/21 04:00 Total Protein 6.3 g/dL (6.3-8.2) 04/15/21 Unknown Albumin 2.4 g/dL (3.9-5) L 04/15/21 Unknown Albumin/Globulin Ratio 0.6 % 04/15/21 Unknown Triglycerides 406 mg/dL (2-149) H 04/11/21 04:15 Serotonin Release Assay TNR 03/22/21 08:20 Procalcitonin < 0.05 ng/mL (<0.15) 03/13/21 15:40 HCG, Qual Negative (Negative) 03/13/21 13:26 Arterial Blood Glucose 146 mg/dL (65-95) H 04/15/21 08:20 Arterial Blood Ionized Calcium 4.6 mg/dL (4.6-5.3) 04/15/21 08:20 Urine Color Sweta (Yellow) 04/15/21 18:35 Urine Turbidity Cloudy (Clear) 04/15/21 18:35 Urine pH 5.0 (5.0-7.0) 04/15/21 18:35 Ur Specific [place] 1.025 (1.003-1.030) 04/15/21 18:35 Urine Protein >500 mg/dL (Negative) 04/15/21 18:35 Urine Glucose (UA) Neg mg/dL (Negative) 04/15/21 18:35 Urine Ketones Neg mg/dL (Negative) 04/15/21 18:35 Urine Blood Mod (Negative) 04/15/21 18:35 Urine Nitrite Neg (Negative) 04/15/21 18:35 Urine Bilirubin Neg (Negative) 04/15/21 18:35 Urine Urobilinogen < 2.0 mg/dL (<2.0) 04/15/21 18:35 Ur Leukocyte Esterase Mod (Negative) 04/15/21 18:35 Urine WBC (Auto) 156.0 /HPF (0.0-6.0) H 04/15/21 18:35 Urine RBC (Auto) 56.0 /HPF (0.0-6.0) 04/15/21 18:35 U Epithel Cells (Auto) 15.0 /HPF (0-13.0) H 04/15/21 18:35 Urine Bacteria (Auto) 2+ /HPF (Negative) 04/15/21 18:35 Urine WBC Clumps 3+ /HPF 04/15/21 18:35 Ur Renal Epithelial Cell 151 /LPF 04/06/21 Unknown Urine Mucus Few /HPF 04/15/21 18:35 Urine Yeast (Budding) 3+ /HPF 04/15/21 18:35 Urine Creatinine 40.1 mg/dL (0.1-20.0) H 03/14/21 17:50 Urine Sodium 124 mmol/L 03/14/21 17:50 Random Vancomycin 11.9 ug/mL (0-40.0) 04/15/21 07:05 KIMBERLEY Screen Negative (Negative) 04/07/21 08:27 Heparin-induced Plt Ab Negative (Negative) 03/22/21 08:20 UF Heparin High Dose TNR 03/22/21 08:20 JUAN UFH Low Dose 0.1 TNR 03/22/21 08:20 JUAN UFH Low Dose 0.5 TNR 03/22/21 08:20 Coronavirus (PCR) Negative (Negative) 04/04/21 09:00 Hepatitis A IgM Ab Non-reactive (NonReactive) 03/15/21 05:09 Hep Bs Antigen Nonreactive (Negative) 03/15/21 05:09 Hep B Core IgM Ab Non-reactive (NonReactive) 03/15/21 05:09 Hepatitis C Antibody Non-reactive (NonReactive) 03/15/21 05:09 Schistocytes Smear None seen 03/31/21 12:11 Blood Type O POSITIVE 04/15/21 12:10 Antibody Screen Positive 04/15/21 12:10 Antibody Identification Anti-K 04/15/21 12:10 Direct Antiglob Test Negative 03/31/21 23:18 NIKOLE, Poly Interpret Negative 03/31/21 23:18 Crossmatch See Detail 04/15/21 12:10 Microbiology: Microbiology 04/15/21 11:19 Peripheral/Venous Blood Culture - Preliminary NO GROWTH AFTER 24 HOURS 04/15/21 11:16 Peripheral/Venous Blood Culture - Preliminary NO GROWTH AFTER 24 HOURS 04/11/21 15:05 Bronchial Washings - Left Upper Lobe Respiratory Culture - Final Enterococcus Faecalis Bazan/IV: Voiding Method Incontinent Active Medications - Current Medications Current Medications: Generic Name Dose Route Start Last Admin Trade Name Freq PRN Reason Stop Dose Admin Acetaminophen 650 mg 03/31/21 12:41 04/15/21 12:30 Acetaminophen 325 Mg/10.15 Ml Oral Liqd Unit Dose FEEDTUBE 650 mg Q6H PRN Administration TEMP >/=100.4 Albumin Human 25 gm 04/01/21 08:19 04/01/21 16:23 Albumin Human 25% (25 Gm/100 Ml) Inj IV 25 gm KARLOS PRN Administration Hypotension Albuterol 2.5 mg 03/19/21 00:53 Albuterol 2.5 Mg/3 Ml Nebu IH Q4HRT PRN Shortness Of Breath Albuterol/Ipratropium 1 ampul 03/19/21 08:00 04/16/21 09:15 Ipratropium/Albuterol Sulfate 3 Ml Ampul.Neb IH 1 ampul Q6HRT INESSA Administration Lipase/Protease/Amylase 1 each 04/09/21 17:17 Lipase 10,500/Protease 25,000/Amylase 43,750 (Units) Dr White FEEDTUBE PRN PRN For Clogged Feeding Tube Calcium Acetate 1,334 mg 04/03/21 20:00 04/16/21 14:13 Calcium Acetate 667 Mg Cap FEEDTUBE 1,334 mg TID INESSA Administration Dextrose 50 ml 03/14/21 11:02 03/15/21 11:40 Dextrose 50% In Water (25gm) 50 Ml Syringe IV 50 ml Q30MIN PRN Administration Hypoglycemia Protocol Famotidine 10 mg 03/17/21 22:00 04/16/21 10:11 Famotidine 10 Mg Tab PO 10 mg BID INESSA Administration Fentanyl 50 mcg 04/15/21 11:48 Fentanyl 100 Mcg/2 Ml Inj IV Q10MIN PRN ANALGESIA Hydrocortisone Sodium Succinate 75 mg 04/15/21 14:00 04/16/21 14:13 Hydrocortisone Sod Succ 100 Mg/2 Ml Vial IV 75 mg Q8HR INESSA Administration Hydrophilic Ointment 1 applic 03/14/21 17:50 Lip Therapy Vaseline TP Q2HR PRN Dry Lips Hydrophilic Ointment 1 applic 04/15/21 13:00 04/16/21 10:11 Aquaphor Ointment TP 1 applic Q12HR INESSA Administration Midazolam HCl 100 mg/ Sodium 100 mls @ 1 mls/hr 03/30/21 15:00 04/16/21 12:46 Chloride IV 4 mg/hr TITR INESSA 4 mls/hr Administration Protocol 1 MG/HR Vasopressin 20 unit/ Sodium 101 mls @ 9.09 mls/hr 03/30/21 20:00 04/16/21 12:46 Chloride IV 0.03 units/min TITR INESSA 9.09 mls/hr Administration 0.03 UNITS/MIN Phenylephrine HCl 100 mg/ 100 mls @ 3 mls/hr 03/31/21 04:00 04/06/21 07:58 Sodium Chloride IV 0 mcg/min TITR INESSA 0 mls/hr Titration Protocol 50 MCG/MIN Sodium Chloride 100 mls @ 999 mls/hr 04/01/21 08:19 Nacl 0.9% IV KARLOS PRN Hypotension Propofol 1,000 mg in 100 mls @ 4.26 mls/hr 04/07/21 13:00 04/12/21 12:52 Diprivan 10 Mg/Ml IV 0 mcg/kg/min TITR INESSA 0 mls/hr Titration Protocol 5 MCG/KG/MIN Micafungin Sodium 100 mg/ 100 mls @ 100 mls/hr 04/09/21 17:00 04/15/21 18:01 Sodium Chloride IV 04/16/21 17:59 100 mls/hr Q24H INESSA Administration Protocol MEROPENEM/NS 1 GRAM/100 ML 1 gram in 100 mls @ 100 mls/hr 04/12/21 22:00 04/15/21 22:53 Merrem/Ns 1 Gram/100 Ml IV 04/16/21 22:59 100 mls/hr Q24H INESSA Administration Protocol Sodium Chloride 1,000 mls @ 1 mls/hr 04/14/21 16:45 04/14/21 16:57 Nacl 0.9% 1000 Ml IV 1 mls/hr DIRECT INESSA Administration NORepinephrine/NS 8 MG-250 ML 8 mg in 250 mls @ 3.75 mls/hr 04/15/21 12:00 04/15/21 17:55 Norepinephrine/Ns 8 Mg-250 Ml (Double Conc) IV 10 mcg/min TITRATE INESSA 18.75 mls/hr Titration Protocol 2 MCG/MIN Fentanyl Citrate 2,000 mcg in 100 mls @ 7.1 mls/hr 04/15/21 13:00 04/16/21 14:13 Fentanyl Drip Premix IV 3 mcg/kg/hr TITR INESSA 21.3 mls/hr Administration Protocol 1 MCG/KG/HR Insulin Human Lispro 0 unit 03/14/21 12:00 04/16/21 11:33 Insulin Lispro 100 Unit/Ml SUB-Q Not Given Q6HR INESSA Protocol Lorazepam 1 mg 03/13/21 19:40 03/30/21 19:58 Lorazepam 2 Mg/Ml Vial IV 1 mg Q4H PRN Administration Anxiety Multi-Ingred Cream/Lotion/Oil/Oint 1 applic 03/14/21 17:50 04/15/21 22:35 Mineral Oil/Petrolatum, White Ophth Oint 3.5 Gm OU 1 applic Q4HR PRN Administration Dry Eye(s) Ondansetron HCl 4 mg 03/13/21 19:30 03/21/21 12:05 Ondansetron 4 Mg/2 Ml Inj IV 4 mg Q8H PRN Administration Nausea And Vomiting Quetiapine Fumarate 300 mg 04/06/21 22:00 04/16/21 10:11 Quetiapine 100 Mg Tab PO 300 mg BID INESSA Administration Senna/Docusate Sodium 1 tab 03/14/21 22:00 04/16/21 10:11 Sennosides/Docusate Sodium 8.6/50 Mg Tab FEEDTUBE 1 tab BID INESSA Administration Simple Syrup 15 ml 04/09/21 17:17 Simple Syrup 15 Ml FEEDTUBE PRN PRN Hypoglycemia Simple Syrup 30 ml 04/09/21 17:17 Simple Syrup 15 Ml FEEDTUBE PRN PRN Hypoglycemia Sodium Bicarbonate 325 mg 04/09/21 17:17 Sodium Bicarbonate 325 Mg Tab FEEDTUBE PRN PRN For Clogged Feeding Tube Sodium Chloride 10 ml 03/13/21 22:00 04/16/21 10:12 Sodium Chloride 0.9% 10 Ml Flush Syringe IV 10 ml BID INESSA Administration Sodium Chloride 10 ml 03/13/21 19:30 Sodium Chloride 0.9% 10 Ml Flush Syringe IV PRN PRN LINE FLUSH Nutrition/Malnutrition Assess - Dietary Evaluation Nutrition/Malnutrition Findings: Nutrition Notes Start: 03/15/21 11:06 Freq: Status: Active Protocol: Document 04/14/21 11:13 CANDACE (Rec: 04/14/21 11:52 CANDACE [id number]) Nutrition Notes Initial or Follow up Reassessment Other Pertinent Diagnosis [id number], Transaminitis, Hyperglycemia. Current Diet TF -Glucerna 1.2 Abdullahi (since L 04/14). Labs/Tests 04/14: BUN 74, Crea 3.1, Glu 220. Pertinent Medications 04/14 Vit C, D50w (25 g) mEq, Insulin, Zn, Propofol 1,000 mg /100 ml @ 4.26 ml/hr, others nutritionally unremarkable. Height 5 ft 5 in Weight 142 kg [place] Body Weight (kg) 56.81 BMI 52.0 Weight change and time frame No new reports on body weight changes, Weight Status Morbidly Obese Subjective/Other Information RD consult on change TF from Nepro w/CARBSTEADY to Glucerna 1,2 Abdullahi, due to lack of stock Nepro. Percent of energy/protein needs met: 100% Kcal; 85% AA. Burn Absent Trauma Absent GI Symptoms None Food Allergy No Skin Integrity/Comment Clear, warm, dry. Current % PO Other Minimum of two criteria No Is patient on ventilator? Yes Is Patient Ambulatory and/or Out of Bed No REE-([facility]-confined to bed) 2570.232 Kcal/Kg value to use for calculation 14 Approximate Energy Requirements Using 1988 kcal/Kg Calculation Used for Recommendations Kcal/kg Additional Notes Pro needs >1.2g/kg adjBW: > 117g/day Fluid needs 1-1.5L/day Nutrition Intervention Nutrition Support: Change to Glucerna 1.2 Abdullahi @ 69 ml/hr. Flush: 109 ml water Q 4 hr. Kcal 1,988 Protein (gm) 99 Carbohydrates (gm) 190 Fat (gm) 99 Fluid (mL) 1,334 Fiber (gm) 27 % RDI: 100% Kcal; 85% AA. Goal #1 Maintain body weight within +/ -3% of admission BWt during LOS. Goal #2 Reach and maintain acceptable chemistry lab values during LOS. Follow-Up By: 04/16/21 Additional Comments Continue monitoring TF tolerance, Hydration, and BM. <SAURABH ALBRECHT - Last Filed: 04/19/21 13:36> Assessment and Plan Assessment and plan: I saw and evaluated the patient. Discussed with the nurse practitioner and agree with their findings and plan as documented in this note. I saw and evaluated the patient. Discussed with the nurse practitioner and agree with their findings and plan as documented in this note. Hospitalist Physical - Constitutional Vitals: Temp Pulse Resp BP Pulse Ox 100.2 F H 131 H 16 128/54 100 04/19/21 12:11 04/19/21 12:42 04/19/21 11:46 04/19/21 12:42 04/19/21 12:42 Results - Labs CBC & Chem 7: 04/19/21 05:00 04/19/21 04:00 Labs: Laboratory Last Values WBC 12.5 K/mm3 (4.5-11.0) H 04/19/21 05:00 RBC 2.79 M/mm3 (3.65-5.03) L 04/19/21 05:00 Hgb 8.6 gm/dl (10.1-14.3) L 04/19/21 05:00 Hct 26.2 % (30.3-42.9) L 04/19/21 05:00 MCV 94 fl (79-97) 04/19/21 05:00 MCH 31 pg (28-32) 04/19/21 05:00 MCHC 33 % (30-34) 04/19/21 05:00 RDW 17.3 % (13.2-15.2) H 04/19/21 05:00 Plt Count 121 K/mm3 (140-440) L 04/19/21 05:00 Lymph % (Auto) 10.7 % (13.4-35.0) L 03/28/21 09:37 Mcpherson % (Auto) 5.2 % (0.0-7.3) 03/28/21 09:37 Eos % (Auto) Butting Saw Operator 04/07/21 03:50 Baso % (Auto) 0.2 % (0.0-1.8) 03/28/21 09:37 Lymph # (Auto) 1.7 K/mm3 (1.2-5.4) 03/28/21 09:37 Mcpherson # (Auto) 0.9 K/mm3 (0.0-0.8) H 03/28/21 09:37 Eos # (Auto) 0.6 K/mm3 (0.0-0.4) H 03/28/21 09:37 Baso # (Auto) 0.0 K/mm3 (0.0-0.1) 03/28/21 09:37 Add Manual Diff Complete 04/17/21 04:42 Total Counted 100 04/17/21 04:42 Seg Neutrophils % 80.0 % (40.0-70.0) H 03/28/21 09:37 Seg Neuts % (Manual) 68.0 % (40.0-70.0) 04/17/21 04:42 Band Neutrophils % 4.0 % 04/17/21 04:42 Lymphocytes % (Manual) 10.0 % (13.4-35.0) L 04/17/21 04:42 Reactive Lymphs % (Man) 2.0 % 04/17/21 04:42 Monocytes % (Manual) 6.0 % (0.0-7.3) 04/17/21 04:42 Eosinophils % (Manual) 3.0 % (0.0-4.3) 04/17/21 04:42 Basophils % (Manual) 2.0 % (0.0-1.8) H 04/03/21 04:30 Metamyelocytes % 6.0 % 04/17/21 04:42 Myelocytes % 1.0 % 04/17/21 04:42 Nucleated RBC % Not Reportable 04/17/21 04:42 Seg Neutrophils # 13.0 K/mm3 (1.8-7.7) H 03/28/21 09:37 Seg Neutrophils # Man 9.6 K/mm3 (1.8-7.7) H 04/17/21 04:42 Band Neutrophils # 0.6 K/mm3 04/17/21 04:42 Lymphocytes # (Manual) 1.4 K/mm3 (1.2-5.4) 04/17/21 04:42 Abs React Lymphs (Man) 0.3 K/mm3 04/17/21 04:42 Monocytes # (Manual) 0.8 K/mm3 (0.0-0.8) 04/17/21 04:42 Eosinophils # (Manual) 0.4 K/mm3 (0.0-0.4) 04/17/21 04:42 Basophils # (Manual) 0.0 K/mm3 (0.0-0.1) 04/17/21 04:42 Metamyelocytes # 0.8 K/mm3 04/17/21 04:42 Myelocytes # 0.1 K/mm3 04/17/21 04:42 Promyelocytes # 0.0 K/mm3 04/17/21 04:42 Blast Cells # 0.0 K/mm3 04/17/21 04:42 WBC Morphology Not Reportable 04/17/21 04:42 Hypersegmented Neuts Not Reportable 04/17/21 04:42 Hyposegmented Neuts Not Reportable 04/17/21 04:42 Hypogranular Neuts Not Reportable 04/17/21 04:42 Smudge Cells Not Reportable 04/17/21 04:42 Toxic Granulation Not Reportable 04/17/21 04:42 Toxic Vacuolation Not Reportable 04/17/21 04:42 Dohle Bodies Not Reportable 04/17/21 04:42 Pelger-Huet Anomaly Not Reportable 04/17/21 04:42 Bridgette Rods Not Reportable 04/17/21 04:42 Platelet Estimate Consistent w auto 04/17/21 04:42 Clumped Platelets Not Reportable 04/17/21 04:42 Plt Clumps, EDTA Not Reportable 04/17/21 04:42 Large Platelets Not Reportable 04/17/21 04:42 Giant Platelets Few 04/17/21 04:42 Platelet Satelliting Not Reportable 04/17/21 04:42 Plt Morphology Comment Not Reportable 04/17/21 04:42 RBC Morphology Not Reportable 04/17/21 04:42 Dimorphic RBCs Not Reportable 04/17/21 04:42 Polychromasia Few 04/17/21 04:42 Hypochromasia Not Reportable 04/17/21 04:42 Poikilocytosis Not Reportable 04/17/21 04:42 Anisocytosis Not Reportable 04/17/21 04:42 Microcytosis Not Reportable 04/17/21 04:42 Macrocytosis Not Reportable 04/17/21 04:42 Spherocytes Few 04/17/21 04:42 Pappenheimer Bodies Not Reportable 04/17/21 04:42 Sickle Cells Not Reportable 04/17/21 04:42 Target Cells Not Reportable 04/17/21 04:42 Tear Drop Cells Not Reportable 04/17/21 04:42 Ovalocytes Not Reportable 04/17/21 04:42 Helmet Cells Not Reportable 04/17/21 04:42 [place] Bodies Not Reportable 04/17/21 04:42 [place] Rings Not Reportable 04/17/21 04:42 [place] Cells Not Reportable 04/17/21 04:42 Bite Cells Not Reportable 04/17/21 04:42 Crenated Cell Not Reportable 04/17/21 04:42 Elliptocytes Not Reportable 04/17/21 04:42 Acanthocytes (Spur) Not Reportable 04/17/21 04:42 Rouleaux Not Reportable 04/17/21 04:42 Hemoglobin C Crystals Not Reportable 04/17/21 04:42 Schistocytes Not Reportable 04/17/21 04:42 Malaria parasites Not Reportable 04/17/21 04:42 Percent Retic 4.52 % (0.78-2.58) H 03/31/21 09:49 Vaibhav Bodies Not Reportable 04/17/21 04:42 Hem Pathologist Commnt No 04/17/21 04:42 PT 17.1 Sec. (12.2-14.9) H 04/17/21 10:58 INR 1.26 (0.87-1.13) H 04/17/21 10:58 APTT 27.5 Sec. (24.2-36.6) 04/17/21 10:58 Fibrinogen 400 mg/dl (211-480) 04/14/21 09:45 D-Dimer 2696.79 ng/mlDDU (0-234) H 04/08/21 04:40 Heparin Anti-Xa, Unfract Negative (Negative) 04/14/21 09:45 ABG pH 7.301 (7.320-7.450) L 04/19/21 03:09 POC ABG pCO2 48.7 mmHg (32.0-48.0) H 04/19/21 03:09 ABG pCO2 68.6 mm Hg 04/13/21 03:52 POC ABG pO2 82.1 mmHg (83-108) L 04/19/21 03:09 ABG pO2 98.9 mm Hg (80.0-90.0) H 04/13/21 03:52 POC ABG HCO3 23.5 04/19/21 03:09 ABG HCO3 25.5 mmol/L (20.0-26.0) 04/13/21 03:52 ABG O2 Saturation 94.9 (0-100) 04/19/21 03:09 ABG O2 Content 10.0 (0.0-44) 04/13/21 03:52 POC ABG Base Excess -2.9 04/19/21 03:09 ABG Base Excess -2.9 mmol/L (-2.0-3.0) L 04/13/21 03:52 ABG Hemoglobin 8.9 (12.0-17.5) L 04/19/21 03:09 ABG Oxyhemoglobin 93.8 (94-98) L 04/19/21 03:09 ABG Carboxyhemoglobin 1.9 % (0.0-5.0) 04/13/21 03:52 ABG Methemoglobin 0.1 (0.0-1.5) 04/19/21 03:09 ABG Sodium 133.9 mmol/L (136.0-145.0) L 04/19/21 03:09 ABG Potassium 5.2 mmol/L (3.40-4.50) H 04/19/21 03:09 ABG Chloride 101.0 mmol/L (98-107) 04/19/21 03:09 ABG Glucose 126 mg/dL (65-95) H 04/19/21 03:09 ABG Lactate Cancelled 04/03/21 20:45 Oxyhemoglobin 94.3 % (95.0-99.0) L 04/13/21 03:52 Carboxyhemoglobin 1.1 (0.5-1.5) 04/19/21 03:09 FiO2 65 % 04/13/21 03:52 FiO2 % 40.0 04/19/21 03:09 Sodium 138 mmol/L (137-145) 04/19/21 04:00 Potassium 5.3 mmol/L (3.6-5.0) H 04/19/21 04:00 Chloride 100.3 mmol/L (98-107) 04/19/21 04:00 Carbon Dioxide 24 mmol/L (22-30) 04/19/21 04:00 Anion Gap 19 mmol/L 04/19/21 04:00 BUN 102 mg/dL (7-17) H 04/19/21 04:00 Creatinine 3.2 mg/dL (0.6-1.2) H 04/19/21 04:00 Estimated GFR 21 ml/min 04/19/21 04:00 BUN/Creatinine Ratio 32 % 04/19/21 04:00 Glucose 116 mg/dL (65-100) H 04/19/21 04:00 POC Glucose 118 mg/dL (70-105) H 04/19/21 11:18 Hemoglobin A1c 6.3 % (4-6) H 03/15/21 05:09 Lactic Acid 0.80 mmol/L (0.7-2.0) 04/07/21 03:50 Calcium 8.2 mg/dL (8.4-10.2) L 04/19/21 04:00 Phosphorus 6.50 mg/dL (2.5-4.5) H 04/18/21 04:55 Magnesium 2.00 mg/dL (1.7-2.3) 04/18/21 04:55 Ferritin 151.6 ng/mL (10.0-200.0) 03/18/21 04:30 Total Bilirubin 0.30 mg/dL (0.1-1.2) 04/17/21 10:58 Bilirubin Cancelled 04/03/21 20:45 AST 29 units/L (5-40) 04/17/21 10:58 ALT 44 units/L (7-56) 04/17/21 10:58 Alkaline Phosphatase 79 units/L (35-129) 04/17/21 10:58 Lactate Dehydrogenase 394 units/L (91-180) H 04/05/21 05:20 C-Reactive Protein 26.10 mg/dL (0.00-1.30) H 04/08/21 04:00 Total Protein 5.7 g/dL (6.3-8.2) L 04/17/21 10:58 Albumin 2.1 g/dL (3.9-5) L 04/17/21 10:58 Albumin/Globulin Ratio 0.6 % 04/17/21 10:58 Triglycerides 406 mg/dL (2-149) H 04/11/21 04:15 Serotonin Release Assay TNR 03/22/21 08:20 Procalcitonin < 0.05 ng/mL (<0.15) 03/13/21 15:40 HCG, Qual Negative (Negative) 03/13/21 13:26 Arterial Blood Glucose 126 mg/dL (65-95) H 04/19/21 03:09 Arterial Blood Ionized Calcium 4.4 mg/dL (4.6-5.3) L 04/18/21 00:08 Urine Color Sweta (Yellow) 04/15/21 18:35 Urine Turbidity Cloudy (Clear) 04/15/21 18:35 Urine pH 5.0 (5.0-7.0) 04/15/21 18:35 Ur Specific [place] 1.025 (1.003-1.030) 04/15/21 18:35 Urine Protein >500 mg/dL (Negative) 04/15/21 18:35 Urine Glucose (UA) Neg mg/dL (Negative) 04/15/21 18:35 Urine Ketones Neg mg/dL (Negative) 04/15/21 18:35 Urine Blood Mod (Negative) 04/15/21 18:35 Urine Nitrite Neg (Negative) 04/15/21 18:35 Urine Bilirubin Neg (Negative) 04/15/21 18:35 Urine Urobilinogen < 2.0 mg/dL (<2.0) 04/15/21 18:35 Ur Leukocyte Esterase Mod (Negative) 04/15/21 18:35 Urine WBC (Auto) 156.0 /HPF (0.0-6.0) H 04/15/21 18:35 Urine RBC (Auto) 56.0 /HPF (0.0-6.0) 04/15/21 18:35 U Epithel Cells (Auto) 15.0 /HPF (0-13.0) H 04/15/21 18:35 Urine Bacteria (Auto) 2+ /HPF (Negative) 04/15/21 18:35 Urine WBC Clumps 3+ /HPF 04/15/21 18:35 Ur Renal Epithelial Cell 151 /LPF 04/06/21 Unknown Urine Mucus Few /HPF 04/15/21 18:35 Urine Yeast (Budding) 3+ /HPF 04/15/21 18:35 Urine Creatinine 40.1 mg/dL (0.1-20.0) H 03/14/21 17:50 Urine Sodium 124 mmol/L 03/14/21 17:50 Random Vancomycin 11.9 ug/mL (0-40.0) 04/15/21 07:05 KIMBERLEY Screen Negative (Negative) 04/07/21 08:27 Heparin-induced Plt Ab Positive (Negative) H 04/14/21 09:45 UF Heparin High Dose 0 % Release 04/14/21 09:45 JUAN UFH Low Dose 0.1 1 % Release 04/14/21 09:45 JUAN UFH Low Dose 0.5 0 % Release 04/14/21 09:45 Coronavirus (PCR) Negative (Negative) 04/04/21 09:00 Hepatitis A IgM Ab Non-reactive (NonReactive) 03/15/21 05:09 Hep Bs Antigen Nonreactive (Negative) 03/15/21 05:09 Hep B Core IgM Ab Non-reactive (NonReactive) 03/15/21 05:09 Hepatitis C Antibody Non-reactive (NonReactive) 03/15/21 05:09 Schistocytes Smear None seen 03/31/21 12:11 Blood Type O POSITIVE 04/15/21 12:10 Antibody Screen Positive 04/15/21 12:10 Antibody Identification Anti-E 04/15/21 12:10 Direct Antiglob Test Negative 03/31/21 23:18 NIKOLE, Poly Interpret Negative 03/31/21 23:18 Crossmatch See Detail 04/15/21 12:10 Microbiology: Microbiology 04/15/21 11:19 Peripheral/Venous Blood Culture - Preliminary NO GROWTH AFTER 4 DAYS 04/15/21 11:16 Peripheral/Venous Blood Culture - Preliminary NO GROWTH AFTER 4 DAYS 04/15/21 Unknown Urine,Catheterized - Straight Catheter Urine Culture - Final NO GROWTH AFTER 48 HOURS Bazan/IV: Voiding Method Incontinent Active Medications - Current Medications Current Medications: Generic Name Dose Route Start Last Admin Trade Name Freq PRN Reason Stop Dose Admin Acetaminophen 650 mg 03/31/21 12:41 04/19/21 05:37 Acetaminophen 325 Mg/10.15 Ml Oral Liqd Unit Dose FEEDTUBE 650 mg Q6H PRN Administration TEMP >/=100.4 Albumin Human 25 gm 04/01/21 08:19 04/01/21 16:23 Albumin Human 25% (25 Gm/100 Ml) Inj IV 25 gm KARLOS PRN Administration Hypotension Albuterol 2.5 mg 03/19/21 00:53 Albuterol 2.5 Mg/3 Ml Nebu IH Q4HRT PRN Shortness Of Breath Albuterol/Ipratropium 1 ampul 03/19/21 08:00 04/19/21 08:31 Ipratropium/Albuterol Sulfate 3 Ml Ampul.Neb IH 1 ampul Q6HRT INESSA Administration Lipase/Protease/Amylase 1 each 04/09/21 17:17 Lipase 10,500/Protease 25,000/Amylase 43,750 (Units) Cap FEEDTUBE PRN PRN For Clogged Feeding Tube Calcium Acetate 1,334 mg 04/03/21 20:00 04/19/21 13:33 Calcium Acetate 667 Mg Cap FEEDTUBE 1,334 mg TID INESSA Administration Dextrose 50 ml 03/14/21 11:02 03/15/21 11:40 Dextrose 50% In Water (25gm) 50 Ml Syringe IV 50 ml Q30MIN PRN Administration Hypoglycemia Protocol Famotidine 10 mg 03/17/21 22:00 04/19/21 13:25 Famotidine 10 Mg Tab PO Not Given BID INESSA Fentanyl 50 mcg 04/15/21 11:48 04/18/21 18:58 Fentanyl 100 Mcg/2 Ml Inj IV 50 mcg Q10MIN PRN Administration ANALGESIA Hydrocortisone Sodium Succinate 50 mg 04/18/21 10:00 04/19/21 13:33 Hydrocortisone Sod Succ 100 Mg/2 Ml Vial IV 04/21/21 22:01 50 mg Q12H INESSA Administration Hydrocortisone Sodium Succinate 25 mg 04/22/21 10:00 Hydrocortisone Sod Succ 100 Mg/2 Ml Vial IV 04/25/21 09:59 QDAY INESSA Hydrophilic Ointment 1 applic 03/14/21 17:50 04/18/21 19:02 Lip Therapy Vaseline TP 1 applic Q2HR PRN Administration Dry Lips Hydrophilic Ointment 1 applic 04/15/21 13:00 04/19/21 10:49 Aquaphor Ointment TP 1 applic Q12HR INESSA Administration Midazolam HCl 100 mg/ Sodium 100 mls @ 1 mls/hr 03/30/21 15:00 04/19/21 05:32 Chloride IV 7 mg/hr TITR INESSA 7 mls/hr Administration Protocol 1 MG/HR Vasopressin 20 unit/ Sodium 101 mls @ 9.09 mls/hr 03/30/21 20:00 04/18/21 02:04 Chloride IV 0.03 units/min TITR INESSA 9.09 mls/hr Administration 0.03 UNITS/MIN Phenylephrine HCl 100 mg/ 100 mls @ 3 mls/hr 03/31/21 04:00 04/06/21 07:58 Sodium Chloride IV 0 mcg/min TITR INESSA 0 mls/hr Titration Protocol 50 MCG/MIN Propofol 1,000 mg in 100 mls @ 4.26 mls/hr 04/07/21 13:00 04/12/21 12:52 Diprivan 10 Mg/Ml IV 0 mcg/kg/min TITR INESSA 0 mls/hr Titration Protocol 5 MCG/KG/MIN Sodium Chloride 1,000 mls @ 1 mls/hr 04/14/21 16:45 04/14/21 16:57 Nacl 0.9% 1000 Ml IV 1 mls/hr DIRECT INESSA Administration NORepinephrine/NS 8 MG-250 ML 8 mg in 250 mls @ 3.75 mls/hr 04/15/21 12:00 04/19/21 08:20 Norepinephrine/Ns 8 Mg-250 Ml (Double Conc) IV 3 mcg/min TITRATE INESSA 5.625 mls/hr Titration Protocol 2 MCG/MIN Fentanyl Citrate 2,000 mcg in 100 mls @ 7.1 mls/hr 04/15/21 13:00 04/19/21 13:33 Fentanyl Drip Premix IV 4 mcg/kg/hr TITR INESSA 28.4 mls/hr Administration Protocol 1 MCG/KG/HR Sodium Chloride 100 mls @ 999 mls/hr 04/18/21 14:26 Nacl 0.9% IV KARLOS PRN Hypotension Insulin Human Lispro 0 unit 03/14/21 12:00 04/19/21 13:25 Insulin Lispro 100 Unit/Ml SUB-Q Not Given Q6HR INESSA Protocol Lorazepam 1 mg 03/13/21 19:40 04/18/21 18:58 Lorazepam 2 Mg/Ml Vial IV 1 mg Q4H PRN Administration Anxiety Multi-Ingred Cream/Lotion/Oil/Oint 1 applic 03/14/21 17:50 04/16/21 23:02 Mineral Oil/Petrolatum, White Ophth Oint 3.5 Gm OU 1 applic Q4HR PRN Administration Dry Eye(s) Ondansetron HCl 4 mg 03/13/21 19:30 03/21/21 12:05 Ondansetron 4 Mg/2 Ml Inj IV 4 mg Q8H PRN Administration Nausea And Vomiting Quetiapine Fumarate 300 mg 04/06/21 22:00 04/19/21 10:48 Quetiapine 100 Mg Tab PO 300 mg BID INESSA Administration Senna/Docusate Sodium 1 tab 03/14/21 22:00 04/19/21 10:48 Sennosides/Docusate Sodium 8.6/50 Mg Tab FEEDTUBE 1 tab BID INESSA Administration Simple Syrup 15 ml 04/09/21 17:17 Simple Syrup 15 Ml FEEDTUBE PRN PRN Hypoglycemia Simple Syrup 30 ml 04/09/21 17:17 Simple Syrup 15 Ml FEEDTUBE PRN PRN Hypoglycemia Sodium Bicarbonate 325 mg 04/09/21 17:17 Sodium Bicarbonate 325 Mg Tab FEEDTUBE PRN PRN For Clogged Feeding Tube Sodium Chloride 10 ml 03/13/21 22:00 04/19/21 10:53 Sodium Chloride 0.9% 10 Ml Flush Syringe IV 10 ml BID INESSA Administration Sodium Chloride 10 ml 03/13/21 19:30 04/17/21 05:34 Sodium Chloride 0.9% 10 Ml Flush Syringe IV 10 ml PRN PRN Administration LINE FLUSH Nutrition/Malnutrition Assess - Dietary Evaluation Nutrition/Malnutrition Findings: Nutrition Notes Start: 03/15/21 11:06 Freq: Status: Active Protocol: Document 04/17/21 13:12 CW (Rec: 04/17/21 13:25 CW [id number]) Nutrition Notes Initial or Follow up Reassessment Current Diagnosis Acute Kidney Injury, Hypertension,Respiratory Failure Other Pertinent Diagnosis pneu, Covid 19 Current Diet TF -Glucerna 1.2 Abdullahi (since L 04/14). Labs/Tests K 5.9 bun 112 k 3.6 BG 174 Pertinent Medications Senna Phoslo Solu cortef Height 5 ft 5 in Weight 142 kg [place] Body Weight (kg) 56.81 BMI 52.0 Weight change and time frame Drastic weight increase. Likely inaccurate. Recommend reweight. Subjective/Other Information Kitchen reports not out of Nepro. Will replace Nepro order. RN reports taht NGT placement needs to be verified . Recommend restart TF when medically feasible. RN reports unable to conduct reweight d/ t lack of bed scale. Will base TF off of UBW and adjust accordingly. Percent of energy/protein needs met: 0%/0% Burn Absent Trauma Absent GI Symptoms None Food Allergy No Skin Integrity/Comment Intact Current % PO Negligible Minimum of two criteria No physical signs of malnutrition #1 Nutrition Diagnosis Swallowing difficulty Etiology respiratory failure As Evidenced by Signs and Symptoms Pt on mechancial vent Diagnosis Progress(for reassessment Continues documentation) Is patient on ventilator? Yes Is Patient Ambulatory and/or Out of Bed No REE-([facility]-confined to bed) 2570.232 Kcal/Kg value to use for calculation 14 Approximate Energy Requirements Using 1988 kcal/Kg Calculation Used for Recommendations Kcal/kg Additional Notes protein need: up to 142 fluid needs: 1.5 L or per MD order Nutrition Intervention Change Diet Order: Continue TF when medically feasible Nutrition Support: Nepro at 46 with a free water flush of 120 ml q4h Kcal 1,944 Protein (gm) 88 Fluid (mL) 785 Goal #1 TF tolerance Goal #2 Meet at least 75% of EER via TF Follow-Up By: 04/19/21 Additional Comments F/U fo TF restart and to[place]rance
[2021-04-16] MEDS: MICAFUNGIN 100 MG in SODIUM CHLORIDE 0.9% 100 ML IV SCH (17:01)
--- NOTE | 2021-04-16 18:18 | Progress Note ---
Assessment and Plan Impression: * Acute kidney injury - dialysis dependent * Acute hypoxic respiratory failure secondary to COVID 19 PNA * COVID 19 * Respiratory acidosis * Hyperkalemia Plan: * Patient is s/p HD on and Monday. HD held yesterday due to HR 130s. * Will hold HD again today - HR in 130s throughout day today * Will plan for HD tomorrow - UF as tolerated * Transfuse pRBC per primary team * Hematology recs reviewed * Dose medications for renal function * Avoid potential nephrotoxins Subjective Date of service: 04/16/21 Principal diagnosis: Ac hypoxemic resp failure; AE-Asthma; SAI; Crohn's; COVID- 19; Pneumonia Interval history: 24h events reviewed. Chart, vitals, labs reviewed. Objective - Vital Signs Vital signs: Vital Signs - 12hr 04/16/21 04/16/21 04/16/21 06:30 06:46 07:00 Temperature Pulse Rate 116 H 121 H 122 H Pulse Rate [ Anterior Bilateral Throughout] Pulse Rate [ From Monitor] Respiratory 18 18 18 Rate Respiratory Rate [Anterior Bilateral Throughout] Blood Pressure O2 Sat by Pulse 100 100 100 Oximetry 04/16/21 04/16/21 04/16/21 07:16 07:30 07:38 Temperature 100.2 F H Pulse Rate 114 H 114 H Pulse Rate [ Anterior Bilateral Throughout] Pulse Rate [ From Monitor] Respiratory 21 30 H Rate Respiratory Rate [Anterior Bilateral Throughout] Blood Pressure O2 Sat by Pulse 100 99 Oximetry 04/16/21 04/16/21 04/16/21 07:46 08:00 08:16 Temperature 99.9 F H Pulse Rate 113 H 112 H 112 H Pulse Rate [ Anterior Bilateral Throughout] Pulse Rate [ 112 H From Monitor] Respiratory 30 H 30 H 30 H Rate Respiratory Rate [Anterior Bilateral Throughout] Blood Pressure O2 Sat by Pulse 99 99 100 Oximetry 04/16/21 04/16/21 04/16/21 08:30 08:46 09:00 Temperature Pulse Rate 112 H 106 H 106 H Pulse Rate [ Anterior Bilateral Throughout] Pulse Rate [ From Monitor] Respiratory 20 30 H 30 H Rate Respiratory Rate [Anterior Bilateral Throughout] Blood Pressure O2 Sat by Pulse 100 100 100 Oximetry 04/16/21 04/16/21 04/16/21 09:15 09:16 09:30 Temperature Pulse Rate 105 H 105 H 105 H Pulse Rate [ 108 H Anterior Bilateral Throughout] Pulse Rate [ From Monitor] Respiratory 30 H 30 H Rate Respiratory 30 H Rate [Anterior Bilateral Throughout] Blood Pressure 85/54 O2 Sat by Pulse 100 100 100 Oximetry 04/16/21 04/16/21 04/16/21 09:46 10:00 10:16 Temperature Pulse Rate 108 H 105 H 104 H Pulse Rate [ Anterior Bilateral Throughout] Pulse Rate [ From Monitor] Respiratory 30 H 30 H 30 H Rate Respiratory Rate [Anterior Bilateral Throughout] Blood Pressure O2 Sat by Pulse 100 100 100 Oximetry 04/16/21 04/16/21 04/16/21 10:30 10:46 11:00 Temperature Pulse Rate 124 H 113 H 111 H Pulse Rate [ Anterior Bilateral Throughout] Pulse Rate [ From Monitor] Respiratory 30 H 30 H 30 H Rate Respiratory Rate [Anterior Bilateral Throughout] Blood Pressure O2 Sat by Pulse 99 99 100 Oximetry 04/16/21 04/16/21 04/16/21 11:16 11:24 11:30 Temperature 99.9 F H Pulse Rate 111 H 108 H Pulse Rate [ Anterior Bilateral Throughout] Pulse Rate [ From Monitor] Respiratory 30 H 30 H Rate Respiratory Rate [Anterior Bilateral Throughout] Blood Pressure O2 Sat by Pulse 99 100 Oximetry 04/16/21 04/16/21 04/16/21 13:24 14:08 15:40 Temperature Pulse Rate 123 H 132 H Pulse Rate [ 130 H Anterior Bilateral Throughout] Pulse Rate [ From Monitor] Respiratory Rate Respiratory 32 H Rate [Anterior Bilateral Throughout] Blood Pressure 116/64 138/75 O2 Sat by Pulse 100 99 Oximetry 04/16/21 16:19 Temperature 101.5 F H Pulse Rate Pulse Rate [ Anterior Bilateral Throughout] Pulse Rate [ From Monitor] Respiratory Rate Respiratory Rate [Anterior Bilateral Throughout] Blood Pressure O2 Sat by Pulse Oximetry - General Appearance General appearance: well-developed, intubated EENT: other (ETT in place) Gastrointestinal: obese Musculoskeletal: other (edema) - Lab 04/16/21 04:54 04/16/21 04:54 Most recent lab results ABG pH 7.300 (7.320-7.450) L 04/16/21 15:50 ABG pCO2 68.6 mm Hg 04/13/21 03:52 ABG pO2 98.9 mm Hg (80.0-90.0) H 04/13/21 03:52 ABG HCO3 25.5 mmol/L (20.0-26.0) 04/13/21 03:52 ABG O2 Saturation 95.6 (0-100) 04/16/21 15:50 Calcium 8.2 mg/dL (8.4-10.2) L 04/16/21 04:54 Phosphorus 5.70 mg/dL (2.5-4.5) H 04/15/21 Unknown Magnesium 1.90 mg/dL (1.7-2.3) 04/15/21 Unknown Urine Creatinine 40.1 mg/dL (0.1-20.0) H 03/14/21 17:50 Urine Sodium 124 mmol/L 03/14/21 17:50 Medications & Allergies - Medications Allergies/Adverse Reactions: Allergies oxycodone HCl [From Percocet] Allergy (Severe, Verified 03/30/21 14:01) Swelling cefepime Allergy (Verified 04/06/21 13:38) Rash hydrocodone bitartrate [From Vicodin] Allergy (Verified 03/31/21 08:20) Swelling ALLERGY TO TYLENOL VS OXYCODONE ACTIVE ORDER REMOVED FROM MAR SINCE UNABLE TO CONFIRM WITH FAMILY Home Medications: Home Medications Medication Instructions Recorded Confirmed Last Taken Type Chlorhexidine Mouthwash [Peridex] 15 ml MM BID #1 bottle 10/11/20 03/13/21 Unknown Rx Clindamycin [Clindamycin CAP] 300 mg PO Q8H #21 cap 10/11/20 03/13/21 Unknown Rx Naproxen 500 mg PO Q12H PRN #12 tablet 10/11/20 03/13/21 Unknown Rx Butalb/Acetamin/Caff 50-325-40 1 - 2 tab PO Q6HR PRN #15 tab 12/05/20 03/13/21 Unknown Rx [Fioricet 50-325-40] Famotidine [Pepcid] 20 mg PO BID #30 tablet 12/05/20 03/13/21 Unknown Rx Ketorolac [Toradol] 10 mg PO Q8H PRN #20 tablet 12/05/20 03/13/21 Unknown Rx Ondansetron [Zofran Odt] 4 mg PO Q6HR PRN #20 tab.rapdis 12/05/20 03/13/21 Unknown Rx Albuterol Sulfate [Proair 90 mcg IH Q4HR PRN #2 aer.pow.ba 01/01/21 03/13/21 Unknown Rx Respiclick] Mupirocin [Bactroban 2% OINT] 1 applic TP BID 7 Days #1 tube 01/01/21 03/13/21 Unknown Rx Triamcinolone Aceton 0.1% (Nf) 1 applic TP BID 14 Days #1 tube 01/01/21 03/13/21 Unknown Rx [Kenalog (NF)] predniSONE [Deltasone] 40 mg PO QDAY #8 tab 01/01/21 03/13/21 Unknown Rx Active Medications: Generic Name Dose Route Start Last Admin Trade Name Freq PRN Reason Stop Dose Admin Acetaminophen 650 mg 03/31/21 12:41 04/15/21 12:30 Acetaminophen 325 Mg/10.15 Ml Oral Liqd Unit Dose FEEDTUBE 650 mg Q6H PRN Administration TEMP >/=100.4 Albumin Human 25 gm 04/01/21 08:19 04/01/21 16:23 Albumin Human 25% (25 Gm/100 Ml) Inj IV 25 gm KARLOS PRN Administration Hypotension Albuterol 2.5 mg 03/19/21 00:53 Albuterol 2.5 Mg/3 Ml Nebu IH Q4HRT PRN Shortness Of Breath Albuterol/Ipratropium 1 ampul 03/19/21 08:00 04/16/21 14:08 Ipratropium/Albuterol Sulfate 3 Ml Ampul.Neb IH 1 ampul Q6HRT INESSA Administration Lipase/Protease/Amylase 1 each 04/09/21 17:17 Lipase 10,500/Protease 25,000/Amylase 43,750 (Units) Dr White FEEDTUBE PRN PRN For Clogged Feeding Tube Calcium Acetate 1,334 mg 04/03/21 20:00 04/16/21 14:13 Calcium Acetate 667 Mg Cap FEEDTUBE 1,334 mg TID INESSA Administration Dextrose 50 ml 03/14/21 11:02 03/15/21 11:40 Dextrose 50% In Water (25gm) 50 Ml Syringe IV 50 ml Q30MIN PRN Administration Hypoglycemia Protocol Famotidine 10 mg 03/17/21 22:00 04/16/21 10:11 Famotidine 10 Mg Tab PO 10 mg BID INESSA Administration Fentanyl 50 mcg 04/15/21 11:48 Fentanyl 100 Mcg/2 Ml Inj IV Q10MIN PRN ANALGESIA Hydrocortisone Sodium Succinate 75 mg 04/15/21 14:00 04/16/21 14:13 Hydrocortisone Sod Succ 100 Mg/2 Ml Vial IV 04/18/21 13:59 75 mg Q8HR INESSA Administration Hydrocortisone Sodium Succinate 50 mg 04/18/21 02:00 Hydrocortisone Sod Succ 100 Mg/2 Ml Vial IV 04/21/21 01:59 Q12H INESSA Hydrocortisone Sodium Succinate 25 mg 04/22/21 10:00 Hydrocortisone Sod Succ 100 Mg/2 Ml Vial IV 04/25/21 09:59 QDAY INESSA Hydrophilic Ointment 1 applic 03/14/21 17:50 Lip Therapy Vaseline TP Q2HR PRN Dry Lips Hydrophilic Ointment 1 applic 04/15/21 13:00 04/16/21 10:11 Aquaphor Ointment TP 1 applic Q12HR INESSA Administration Midazolam HCl 100 mg/ Sodium 100 mls @ 1 mls/hr 03/30/21 15:00 04/16/21 12:46 Chloride IV 4 mg/hr TITR INESSA 4 mls/hr Administration Protocol 1 MG/HR Vasopressin 20 unit/ Sodium 101 mls @ 9.09 mls/hr 03/30/21 20:00 04/16/21 17: 57 Chloride IV 0 units/min TITR INESSA 0 mls/hr Infusion 0.03 UNITS/MIN Phenylephrine HCl 100 mg/ 100 mls @ 3 mls/hr 03/31/21 04:00 04/06/21 07:58 Sodium Chloride IV 0 mcg/min TITR INESSA 0 mls/hr Titration Protocol 50 MCG/MIN Sodium Chloride 100 mls @ 999 mls/hr 04/01/21 08:19 Nacl 0.9% IV KARLOS PRN Hypotension Propofol 1,000 mg in 100 mls @ 4.26 mls/hr 04/07/21 13:00 04/12/21 12:52 Diprivan 10 Mg/Ml IV 0 mcg/kg/min TITR INESSA 0 mls/hr Titration Protocol 5 MCG/KG/MIN MEROPENEM/NS 1 GRAM/100 ML 1 gram in 100 mls @ 100 mls/hr 04/12/21 22:00 04/15/21 22:53 Merrem/Ns 1 Gram/100 Ml IV 04/16/21 22:59 100 mls/hr Q24H INESSA Administration Protocol Sodium Chloride 1,000 mls @ 1 mls/hr 04/14/21 16:45 04/14/21 16:57 Nacl 0.9% 1000 Ml IV 1 mls/hr DIRECT INESSA Administration NORepinephrine/NS 8 MG-250 ML 8 mg in 250 mls @ 3.75 mls/hr 04/15/21 12:00 04/16/21 17:57 Norepinephrine/Ns 8 Mg-250 Ml (Double Conc) IV Infused TITRATE INESSA Titration Protocol 2 MCG/MIN Fentanyl Citrate 2,000 mcg in 100 mls @ 7.1 mls/hr 04/15/21 13:00 04/16/21 17:56 Fentanyl Drip Premix IV 3 mcg/kg/hr TITR INESSA 21.3 mls/hr Titration Protocol 1 MCG/KG/HR Insulin Human Lispro 0 unit 03/14/21 12:00 04/16/21 17:55 Insulin Lispro 100 Unit/Ml SUB-Q Not Given Q6HR INESSA Protocol Lorazepam 1 mg 03/13/21 19:40 03/30/21 19:58 Lorazepam 2 Mg/Ml Vial IV 1 mg Q4H PRN Administration Anxiety Multi-Ingred Cream/Lotion/Oil/Oint 1 applic 03/14/21 17:50 04/15/21 22:35 Mineral Oil/Petrolatum, White Ophth Oint 3.5 Gm OU 1 applic Q4HR PRN Administration Dry Eye(s) Ondansetron HCl 4 mg 03/13/21 19:30 03/21/21 12:05 Ondansetron 4 Mg/2 Ml Inj IV 4 mg Q8H PRN Administration Nausea And Vomiting Quetiapine Fumarate 300 mg 04/06/21 22:00 04/16/21 10:11 Quetiapine 100 Mg Tab PO 300 mg BID INESSA Administration Senna/Docusate Sodium 1 tab 03/14/21 22:00 04/16/21 10:11 Sennosides/Docusate Sodium 8.6/50 Mg Tab FEEDTUBE 1 tab BID INESSA Administration Simple Syrup 15 ml 04/09/21 17:17 Simple Syrup 15 Ml FEEDTUBE PRN PRN Hypoglycemia Simple Syrup 30 ml 04/09/21 17:17 Simple Syrup 15 Ml FEEDTUBE PRN PRN Hypoglycemia Sodium Bicarbonate 325 mg 04/09/21 17:17 Sodium Bicarbonate 325 Mg Tab FEEDTUBE PRN PRN For Clogged Feeding Tube Sodium Chloride 10 ml 03/13/21 22:00 04/16/21 10:12 Sodium Chloride 0.9% 10 Ml Flush Syringe IV 10 ml BID INESSA Administration Sodium Chloride 10 ml 03/13/21 19:30 Sodium Chloride 0.9% 10 Ml Flush Syringe IV PRN PRN LINE FLUSH
[2021-04-16] MEDS: MEROPENEM/NS 1 GRAM/100 ML 1 GRAM/100 ML BAG IV SCH (22:56)
[2021-04-16] MEDS: MINERAL OIL/PETROLATUM, WHITE OPHTH OINT 3.5 GM OU PRN (23:02)
[2021-04-17] MEDS: fentaNYL DRIP Premix 2,000 MCG/100 ML BAG IV SCH ×5 (01:00→19:51)
[2021-04-17] MEDS: IPRATROPIUM/ALBUTEROL SULFATE 3 ML AMPUL.NEB IH SCH ×4 (04:10→19:36)
[2021-04-17 05:11] LABS: Hematocrit 22.3 % (30.3-42.9); Hemoglobin 7.1 gm/dl (10.1-14.3); Mean Corpuscular HGB Conc 32 % (30-34); Mean Corpuscular Volume 93 fl (79-97); Red Blood Count 2.39 M/mm3 (3.65-5.03); Red Cell Distribution Width 16.8 % (13.2-15.2)
[2021-04-17 05:15] LABS: Platelet Count 49 K/mm3 (140-440)
[2021-04-17 05:26] LABS: Calcium 8.1 mg/dL (8.4-10.2)
[2021-04-17] MEDS: HYDROCORTISONE SOD SUCC 100 MG/2 ML VIAL IV SCH ×3 (05:32→22:45)
[2021-04-17] MEDS: INSULIN LISPRO 100 UNIT/ML SUB-Q SCH ×4 (05:34→18:37)
[2021-04-17] MEDS ORDERED: SODIUM CHLORIDE 0.9% 500 ML 500 ML IV ONE (07:35)
[2021-04-17] MEDS: SENNOSIDES/DOCUSATE SODIUM 8.6/50 MG TAB FEEDTUBE SCH ×2 (09:44→22:44)
[2021-04-17] MEDS: QUEtiapine 100 MG TAB PO SCH ×2 (09:44→22:45)
[2021-04-17] MEDS: CALCIUM ACETATE 667 MG CAP FEEDTUBE SCH ×3 (09:44→22:44)
[2021-04-17] MEDS: AQUAPHOR OINTMENT TP SCH ×2 (09:45→22:49)
[2021-04-17] MEDS: FAMOTIDINE 10 MG TAB PO SCH ×2 (09:45→22:44)
[2021-04-17] MEDS ORDERED: SODIUM CHLORIDE 0.9% 100 ML IV PRN (10:03)
[2021-04-17 10:36] LABS: Band Neutrophils # (Manual) 0.6 K/mm3; Myelocytes # (Manual) 0.1 K/mm3; Total Cells Counted 100
--- NOTE | 2021-04-17 10:36 | XRay Report ---
CHEST 1 VIEW 04/17/2021 8:36 AM INDICATION / CLINICAL INFORMATION: resp failure. COMPARISON: 04/15/2021 FINDINGS: SUPPORT DEVICES: Right IJ CVL and endotracheal tube are in good position. Additional tube projecting over mid chest may represent esophagogastric tube located in the midesophagus. HEART / MEDIASTINUM: Stable. LUNGS / PLEURA: Bilateral airspace opacities have similar appearance. No pneumothorax. ADDITIONAL FINDINGS: No significant additional findings. IMPRESSION: 1. Bilateral airspace opacities have similar appearance. 2. Possible esophagogastric tube terminating in mid esophagus. Recommend clinical correlation. Signer Name: Oliver Brown MD Signed: 04/17/2021 10:32 AM Workstation Name: [id number]
[2021-04-17 10:39] LABS: Giant Platelets Few; Platelet Estimate Consistent w Auto; Spherocytes Few
[2021-04-17] MEDS ORDERED: ARGATROBAN 250 MG in SODIUM CHLORIDE 0.9% 250ML 247.5 ML IV SCH (11:00)
--- NOTE | 2021-04-17 11:08 | Progress Note ---
Assessment and Plan Impression: * Acute kidney injury - dialysis dependent * Acute hypoxic respiratory failure secondary to COVID 19 PNA * COVID 19 * Respiratory acidosis * Hyperkalemia Plan: * Patient is s/p HD on and Monday. HD held /Monday due to HR 130s. * HD today as patient is more stable - HR in low 110s today * UF as tolerated * Transfuse pRBC per primary team * Hematology recs reviewed * Dose medications for renal function * Avoid potential nephrotoxins Subjective Date of service: 04/17/21 Principal diagnosis: Ac hypoxemic resp failure; AE-Asthma; SAI; Crohn's; COVID- 19; Pneumonia Interval history: No acute events overnight Objective - Vital Signs Vital signs: Vital Signs - 12hr 04/16/21 04/16/21 04/16/21 23:15 23:31 23:45 Temperature Pulse Rate 105 H 112 H 109 H Pulse Rate [ Anterior Bilateral Throughout] Pulse Rate [ From Monitor] Respiratory 28 H 17 16 Rate Respiratory Rate [Anterior Bilateral Throughout] Blood Pressure O2 Sat by Pulse 100 100 99 Oximetry 04/16/21 04/17/21 04/17/21 23:59 00:00 00:01 Temperature 99.7 F H Pulse Rate 109 H 107 H Pulse Rate [ Anterior Bilateral Throughout] Pulse Rate [ 109 H From Monitor] Respiratory 16 14 Rate Respiratory Rate [Anterior Bilateral Throughout] Blood Pressure O2 Sat by Pulse 100 99 Oximetry 04/17/21 04/17/21 04/17/21 00:09 00:15 00:31 Temperature Pulse Rate 106 H 106 H 102 H Pulse Rate [ Anterior Bilateral Throughout] Pulse Rate [ From Monitor] Respiratory 16 15 Rate Respiratory Rate [Anterior Bilateral Throughout] Blood Pressure 110/60 O2 Sat by Pulse 100 100 100 Oximetry 04/17/21 04/17/21 04/17/21 00:45 01:01 01:15 Temperature Pulse Rate 101 H 113 H 104 H Pulse Rate [ Anterior Bilateral Throughout] Pulse Rate [ From Monitor] Respiratory 15 15 16 Rate Respiratory Rate [Anterior Bilateral Throughout] Blood Pressure O2 Sat by Pulse 100 99 100 Oximetry 04/17/21 04/17/21 04/17/21 01:31 01:45 02:01 Temperature Pulse Rate 106 H 102 H 104 H Pulse Rate [ Anterior Bilateral Throughout] Pulse Rate [ From Monitor] Respiratory 14 15 16 Rate Respiratory Rate [Anterior Bilateral Throughout] Blood Pressure O2 Sat by Pulse 99 99 97 Oximetry 04/17/21 04/17/21 04/17/21 02:15 02:31 02:45 Temperature Pulse Rate 110 H 105 H 101 H Pulse Rate [ Anterior Bilateral Throughout] Pulse Rate [ From Monitor] Respiratory 18 14 13 Rate Respiratory Rate [Anterior Bilateral Throughout] Blood Pressure O2 Sat by Pulse 95 100 99 Oximetry 04/17/21 04/17/21 04/17/21 03:01 03:15 03:23 Temperature 99.3 F Pulse Rate 121 H 113 H Pulse Rate [ Anterior Bilateral Throughout] Pulse Rate [ From Monitor] Respiratory 22 16 Rate Respiratory Rate [Anterior Bilateral Throughout] Blood Pressure O2 Sat by Pulse 94 99 Oximetry 04/17/21 04/17/21 04/17/21 03:31 03:45 04:00 Temperature Pulse Rate 114 H 111 H 109 H Pulse Rate [ Anterior Bilateral Throughout] Pulse Rate [ 109 H From Monitor] Respiratory 16 20 16 Rate Respiratory Rate [Anterior Bilateral Throughout] Blood Pressure O2 Sat by Pulse 98 99 100 Oximetry 04/17/21 04/17/21 04/17/21 04:01 04:07 04:15 Temperature Pulse Rate 109 H 110 H 113 H Pulse Rate [ Anterior Bilateral Throughout] Pulse Rate [ From Monitor] Respiratory 26 H 14 Rate Respiratory Rate [Anterior Bilateral Throughout] Blood Pressure 100/61 O2 Sat by Pulse 100 98 99 Oximetry 04/17/21 04/17/21 04/17/21 04:31 04:45 05:01 Temperature Pulse Rate 107 H 114 H 110 H Pulse Rate [ Anterior Bilateral Throughout] Pulse Rate [ From Monitor] Respiratory 15 19 20 Rate Respiratory Rate [Anterior Bilateral Throughout] Blood Pressure O2 Sat by Pulse 99 97 96 Oximetry 04/17/21 04/17/21 04/17/21 05:15 05:27 05:31 Temperature Pulse Rate 110 H 109 H Pulse Rate [ Anterior Bilateral Throughout] Pulse Rate [ From Monitor] Respiratory 22 25 H Rate Respiratory Rate [Anterior Bilateral Throughout] Blood Pressure O2 Sat by Pulse 96 98 98 Oximetry 04/17/21 04/17/21 04/17/21 07:58 08:17 08:18 Temperature 99.2 F Pulse Rate 106 H Pulse Rate [ 106 H Anterior Bilateral Throughout] Pulse Rate [ From Monitor] Respiratory Rate Respiratory 33 H Rate [Anterior Bilateral Throughout] Blood Pressure 115/75 O2 Sat by Pulse 98 Oximetry - General Appearance General appearance: well-developed, well-nourished, intubated EENT: other (ETT in place) Gastrointestinal: obese Integumentary: rash Musculoskeletal: other (+edema) - Lab 04/17/21 10:58 04/17/21 10:58 Most recent lab results ABG pH 7.294 (7.320-7.450) L 04/17/21 04:10 ABG pCO2 68.6 mm Hg 04/13/21 03:52 ABG pO2 98.9 mm Hg (80.0-90.0) H 04/13/21 03:52 ABG HCO3 25.5 mmol/L (20.0-26.0) 04/13/21 03:52 ABG O2 Saturation 97.1 (0-100) 04/17/21 04:10 Calcium 8.1 mg/dL (8.4-10.2) L 04/17/21 04:42 Phosphorus 7.90 mg/dL (2.5-4.5) H 04/17/21 04:42 Magnesium 2.20 mg/dL (1.7-2.3) 04/17/21 04:42 Urine Creatinine 40.1 mg/dL (0.1-20.0) H 03/14/21 17:50 Urine Sodium 124 mmol/L 03/14/21 17:50 Medications & Allergies - Medications Allergies/Adverse Reactions: Allergies oxycodone HCl [From Percocet] Allergy (Severe, Verified 03/30/21 14:01) Swelling cefepime Allergy (Verified 04/06/21 13:38) Rash hydrocodone bitartrate [From Vicodin] Allergy (Verified 03/31/21 08:20) Swelling ALLERGY TO TYLENOL VS OXYCODONE ACTIVE ORDER REMOVED FROM MAR SINCE UNABLE TO CONFIRM WITH FAMILY Home Medications: Home Medications Medication Instructions Recorded Confirmed Last Taken Type Chlorhexidine Mouthwash [Peridex] 15 ml MM BID #1 bottle 10/11/20 03/13/21 Unknown Rx Clindamycin [Clindamycin CAP] 300 mg PO Q8H #21 cap 10/11/20 03/13/21 Unknown Rx Naproxen 500 mg PO Q12H PRN #12 tablet 10/11/20 03/13/21 Unknown Rx Butalb/Acetamin/Caff 50-325-40 1 - 2 tab PO Q6HR PRN #15 tab 12/05/20 03/13/21 Unknown Rx [Fioricet 50-325-40] Famotidine [Pepcid] 20 mg PO BID #30 tablet 12/05/20 03/13/21 Unknown Rx Ketorolac [Toradol] 10 mg PO Q8H PRN #20 tablet 12/05/20 03/13/21 Unknown Rx Ondansetron [Zofran Odt] 4 mg PO Q6HR PRN #20 tab.rapdis 12/05/20 03/13/21 Unknown Rx Albuterol Sulfate [Proair 90 mcg IH Q4HR PRN #2 aer.pow.ba 01/01/21 03/13/21 Unknown Rx Respiclick] Mupirocin [Bactroban 2% OINT] 1 applic TP BID 7 Days #1 tube 01/01/21 03/13/21 Unknown Rx Triamcinolone Aceton 0.1% (Nf) 1 applic TP BID 14 Days #1 tube 01/01/21 03/13/21 Unknown Rx [Kenalog (NF)] predniSONE [Deltasone] 40 mg PO QDAY #8 tab 01/01/21 03/13/21 Unknown Rx Active Medications: Generic Name Dose Route Start Last Admin Trade Name Freq PRN Reason Stop Dose Admin Acetaminophen 650 mg 03/31/21 12:41 04/15/21 12:30 Acetaminophen 325 Mg/10.15 Ml Oral Liqd Unit Dose FEEDTUBE 650 mg Q6H PRN Administration TEMP >/=100.4 Albumin Human 25 gm 04/01/21 08:19 04/01/21 16:23 Albumin Human 25% (25 Gm/100 Ml) Inj IV 25 gm KARLOS PRN Administration Hypotension Albuterol 2.5 mg 03/19/21 00:53 Albuterol 2.5 Mg/3 Ml Nebu IH Q4HRT PRN Shortness Of Breath Albuterol/Ipratropium 1 ampul 03/19/21 08:00 04/17/21 08:18 Ipratropium/Albuterol Sulfate 3 Ml Ampul.Neb IH 1 ampul Q6HRT INESSA Administration Lipase/Protease/Amylase 1 each 04/09/21 17:17 Lipase 10,500/Protease 25,000/Amylase 43,750 (Units) Dr Cap FEEDTUBE PRN PRN For Clogged Feeding Tube Calcium Acetate 1,334 mg 04/03/21 20:00 04/17/21 09:44 Calcium Acetate 667 Mg Cap FEEDTUBE 1,334 mg TID INESSA Administration Dextrose 50 ml 03/14/21 11:02 03/15/21 11:40 Dextrose 50% In Water (25gm) 50 Ml Syringe IV 50 ml Q30MIN PRN Administration Hypoglycemia Protocol Famotidine 10 mg 03/17/21 22:00 04/17/21 09:45 Famotidine 10 Mg Tab PO 10 mg BID INESSA Administration Fentanyl 50 mcg 04/15/21 11:48 Fentanyl 100 Mcg/2 Ml Inj IV Q10MIN PRN ANALGESIA Hydrocortisone Sodium Succinate 75 mg 04/15/21 14:00 04/17/21 05:32 Hydrocortisone Sod Succ 100 Mg/2 Ml Vial IV 04/18/21 13:59 75 mg Q8HR INESSA Administration Hydrocortisone Sodium Succinate 50 mg 04/18/21 02:00 Hydrocortisone Sod Succ 100 Mg/2 Ml Vial IV 04/21/21 01:59 Q12H INESSA Hydrocortisone Sodium Succinate 25 mg 04/22/21 10:00 Hydrocortisone Sod Succ 100 Mg/2 Ml Vial IV 04/25/21 09:59 QDAY INESSA Hydrophilic Ointment 1 applic 03/14/21 17:50 Lip Therapy Vaseline TP Q2HR PRN Dry Lips Hydrophilic Ointment 1 applic 04/15/21 13:00 04/17/21 09:45 Aquaphor Ointment TP 1 applic Q12HR INESSA Administration Midazolam HCl 100 mg/ Sodium 100 mls @ 1 mls/hr 03/30/21 15:00 04/16/21 12:46 Chloride IV 4 mg/hr TITR INESSA 4 mls/hr Administration Protocol 1 MG/HR Vasopressin 20 unit/ Sodium 101 mls @ 9.09 mls/hr 03/30/21 20:00 04/16/21 17:57 Chloride IV 0 units/min TITR INESSA 0 mls/hr Infusion 0.03 UNITS/MIN Phenylephrine HCl 100 mg/ 100 mls @ 3 mls/hr 03/31/21 04:00 04/06/21 07:58 Sodium Chloride IV 0 mcg/min TITR INESSA 0 mls/hr Titration Protocol 50 MCG/MIN Sodium Chloride 100 mls @ 999 mls/hr 04/01/21 08:19 Nacl 0.9% IV KARLOS PRN Hypotension Propofol 1,000 mg in 100 mls @ 4.26 mls/hr 04/07/21 13:00 04/12/21 12:52 Diprivan 10 Mg/Ml IV 0 mcg/kg/min TITR INESSA 0 mls/hr Titration Protocol 5 MCG/KG/MIN Sodium Chloride 1,000 mls @ 1 mls/hr 04/14/21 16:45 04/14/21 16:57 Nacl 0.9% 1000 Ml IV 1 mls/hr DIRECT INESSA Administration NORepinephrine/NS 8 MG-250 ML 8 mg in 250 mls @ 3.75 mls/hr 04/15/21 12:00 04/16/21 17:57 Norepinephrine/Ns 8 Mg-250 Ml (Double Conc) IV Infused TITRATE INESSA Titration Protocol 2 MCG/MIN Fentanyl Citrate 2,000 mcg in 100 mls @ 7.1 mls/hr 04/15/21 13:00 04/17/21 10:29 Fentanyl Drip Premix IV 3 mcg/kg/hr TITR INESSA 21.3 mls/hr Administration Protocol 1 MCG/KG/HR Sodium Chloride 100 mls @ 999 mls/hr 04/17/21 10:03 Nacl 0.9% IV KARLOS PRN Hypotension Argatroban 250 mg/ Sodium 250 mls @ 5.835 mls/hr 04/17/21 11:00 Chloride IV TITRATE INESSA Protocol 0.5 MCG/KG/MIN Insulin Human Lispro 0 unit 03/14/21 12:00 04/17/21 05:34 Insulin Lispro 100 Unit/Ml SUB-Q Not Given Q6HR INESSA Protocol Lorazepam 1 mg 03/13/21 19:40 03/30/21 19:58 Lorazepam 2 Mg/Ml Vial IV 1 mg Q4H PRN Administration Anxiety Multi-Ingred Cream/Lotion/Oil/Oint 1 applic 03/14/21 17:50 04/16/21 23:02 Mineral Oil/Petrolatum, White Ophth Oint 3.5 Gm OU 1 applic Q4HR PRN Administration Dry Eye(s) Ondansetron HCl 4 mg 03/13/21 19:30 03/21/21 12:05 Ondansetron 4 Mg/2 Ml Inj IV 4 mg Q8H PRN Administration Nausea And Vomiting Quetiapine Fumarate 300 mg 04/06/21 22:00 04/17/21 09:44 Quetiapine 100 Mg Tab PO 300 mg BID INESSA Administration Senna/Docusate Sodium 1 tab 03/14/21 22:00 04/17/21 09:44 Sennosides/Docusate Sodium 8.6/50 Mg Tab FEEDTUBE 1 tab BID INESSA Administration Simple Syrup 15 ml 04/09/21 17:17 Simple Syrup 15 Ml FEEDTUBE PRN PRN Hypoglycemia Simple Syrup 30 ml 04/09/21 17:17 Simple Syrup 15 Ml FEEDTUBE PRN PRN Hypoglycemia Sodium Bicarbonate 325 mg 04/09/21 17:17 Sodium Bicarbonate 325 Mg Tab FEEDTUBE PRN PRN For Clogged Feeding Tube Sodium Chloride 10 ml 03/13/21 22:00 04/16/21 22:58 Sodium Chloride 0.9% 10 Ml Flush Syringe IV 10 ml BID INESSA Administration Sodium Chloride 10 ml 03/13/21 19:30 04/17/21 05:34 Sodium Chloride 0.9% 10 Ml Flush Syringe IV 10 ml PRN PRN Administration LINE FLUSH
[2021-04-17 11:33] LABS: Hematocrit 20.9 % (30.3-42.9); Hemoglobin 6.7 gm/dl (10.1-14.3); Mean Corpuscular HGB Conc 32 % (30-34); Mean Corpuscular Volume 93 fl (79-97); Red Blood Count 2.25 M/mm3 (3.65-5.03); Red Cell Distribution Width 16.7 % (13.2-15.2)
--- NOTE | 2021-04-17 11:39 | Progress Note ---
Assessment and Plan 31-year-old female with history of asthma and morbid obesity, Crohn's disease comes into the emergency room for severe wheezing and shortness of breath for the last 4 days. Patient is using her nebulizers and inhalers at home without improvement. No fever. Patient has difficulty ambulating because of the shortness of breath. Cough nonproductive. Patient is unvaccinated. No history of PE or DVT. No loss of smell. No fever or chills. Patient is very short of breath and tachypneic. Patient intubated and placed on mechanical ventilation. Patient presently on assist contrlol /pressure control, Pressure control 35 , FIO2 50%, Rate 20, PEEP 10. O2 saturation running 98%. Patient sedated. No ventilator asynchorny. Patient afebrile. Has mild leukocytosis. Patients HGB 6.7. Platelet count 53,000. Recommend blood transfusion. Blood pressure 96/58, Pulse 103,rate 22 Chest xray done 04/17/21 reported Bilateral airspace opacities have similar appearance. Possible esophagogastric tube terminating in mid esophagus. Recommend clinical correlation. Talked to the patients nurse and told him advance esophagogastric tube to advan ce into the stomach. Patient presently on albuterol/atrovent aerosol treatments, Famotidine, I/V so lucortef, Nor epinephrine, Phenylephrine and vasopressin. I spent critical care time of 45 minutes, reviewing the chart, examine the patient, review chest xray and labs, talking to the nursing staff, respiratory therapy and work up plan of treatment in this critically ill patient. - Patient Problems (1) Acute asthma exacerbation Current Visit: Yes Status: Acute Qualifiers: Asthma severity: severe Plan to address problem: Intubated and on mechanical ventilation, Pressure control 35 cm H20 pressure, FIO2 50%, Rate 20, PEEP 10. Albuterol/atrovent aerosol treatments. I/V solucortef. Famotidine. (2) Acute respiratory failure with hypoxia Current Visit: Yes Status: Acute Plan to address problem: ntubated and on mechanical ventilation, Pressure control 35 cm H20 pressure, FIO2 50%, Rate 20, PEEP 10. Albuterol/atrovent aerosol treatments. I/V solucortef. Famotidine. (3) Leg edema Current Visit: Yes Status: Acute (4) Pneumonia Current Visit: Yes Status: Acute Plan to address problem: Patient was on Meropenum. (5) Morbid obesity Current Visit: Yes Status: Chronic Plan to address problem: Weight reduction diet (6) Anemia Current Visit: Yes Status: Acute Plan to address problem: Recommend blood transfusion to keep HGB above 7. Subjective Date of service: 04/17/21 Principal diagnosis: Ac hypoxemic resp failure; AE-Asthma; SAI; Crohn's; COVID- 19; Pneumonia Interval history: 31-year-old female with history of asthma and morbid obesity, Crohn's disease comes into the emergency room for severe wheezing and shortness of breath for the last 4 days. Patient is using her nebulizers and inhalers at home without improvement. No fever. Patient has difficulty ambulating because of the shortness of breath. Cough nonproductive. Patient is unvaccinated. No history of PE or DVT. No loss of smell. No fever or chills. Patient is very short of breath and tachypneic. Patient intubated and placed on mechanical ventilation. Patient presently on assist contrlol /pressure control, Pressure control 35 , FIO2 50%, Rate 20, PEEP 10. O2 saturation running 98%. Patient sedated. No ventilator asynchorny. Patient afebrile. Has mild leukocytosis. Patients HGB 6.7. Platelet count 53,000. Recommend blood transfusion. Blood pressure 96/58, Pulse 103,rate 22 Chest xray done 04/17/21 reported Bilateral airspace opacities have similar appearance. Possible esophagogastric tube terminating in mid esophagus. Recommend clinical correlation. Talked to the patients nurse and told him advance esophagogastric tube to advance into the stomach. Patient presently on albuterol/atrovent aerosol treatments, Famotidine, I/V solucortef, Nor epinephrine, Phenylephrine and vasopressin. Objective Vital Signs - 12hr 04/16/21 04/16/21 04/17/21 23:45 23:59 00:00 Temperature 99.7 F H Pulse Rate 109 H 109 H Pulse Rate [ Anterior Bilateral Throughout] Pulse Rate [ 109 H From Monitor] Respiratory 16 16 Rate Respiratory Rate [Anterior Bilateral Throughout] Blood Pressure O2 Sat by Pulse 99 100 Oximetry 04/17/21 04/17/21 04/17/21 00:01 00:09 00:15 Temperature Pulse Rate 107 H 106 H 106 H Pulse Rate [ Anterior Bilateral Throughout] Pulse Rate [ From Monitor] Respiratory 14 16 Rate Respiratory Rate [Anterior Bilateral Throughout] Blood Pressure 110/60 O2 Sat by Pulse 99 100 100 Oximetry 04/17/21 04/17/21 04/17/21 00:31 00:45 01:01 Temperature Pulse Rate 102 H 101 H 113 H Pulse Rate [ Anterior Bilateral Throughout] Pulse Rate [ From Monitor] Respiratory 15 15 15 Rate Respiratory Rate [Anterior Bilateral Throughout] Blood Pressure O2 Sat by Pulse 100 100 99 Oximetry 04/17/21 04/17/21 04/17/21 01:15 01:31 01:45 Temperature Pulse Rate 104 H 106 H 102 H Pulse Rate [ Anterior Bilateral Throughout] Pulse Rate [ From Monitor] Respiratory 16 14 15 Rate Respiratory Rate [Anterior Bilateral Throughout] Blood Pressure O2 Sat by Pulse 100 99 99 Oximetry 04/17/21 04/17/21 04/17/21 02:01 02:15 02:31 Temperature Pulse Rate 104 H 110 H 105 H Pulse Rate [ Anterior Bilateral Throughout] Pulse Rate [ From Monitor] Respiratory 16 18 14 Rate Respiratory Rate [Anterior Bilateral Throughout] Blood Pressure O2 Sat by Pulse 97 95 100 Oximetry 04/17/21 04/17/21 04/17/21 02:45 03:01 03:15 Temperature Pulse Rate 101 H 121 H 113 H Pulse Rate [ Anterior Bilateral Throughout] Pulse Rate [ From Monitor] Respiratory 13 22 16 Rate Respiratory Rate [Anterior Bilateral Throughout] Blood Pressure O2 Sat by Pulse 99 94 99 Oximetry 04/17/21 04/17/21 04/17/21 03:23 03:31 03:45 Temperature 99.3 F Pulse Rate 114 H 111 H Pulse Rate [ Anterior Bilateral Throughout] Pulse Rate [ From Monitor] Respiratory 16 20 Rate Respiratory Rate [Anterior Bilateral Throughout] Blood Pressure O2 Sat by Pulse 98 99 Oximetry 04/17/21 04/17/21 04/17/21 04:00 04:01 04:07 Temperature Pulse Rate 109 H 109 H 110 H Pulse Rate [ Anterior Bilateral Throughout] Pulse Rate [ 109 H From Monitor] Respiratory 16 26 H Rate Respiratory Rate [Anterior Bilateral Throughout] Blood Pressure 100/61 O2 Sat by Pulse 100 100 98 Oximetry 04/17/21 04/17/21 04/17/21 04:15 04:31 04:45 Temperature Pulse Rate 113 H 107 H 114 H Pulse Rate [ Anterior Bilateral Throughout] Pulse Rate [ From Monitor] Respiratory 14 15 19 Rate Respiratory Rate [Anterior Bilateral Throughout] Blood Pressure O2 Sat by Pulse 99 99 97 Oximetry 04/17/21 04/17/21 04/17/21 05:01 05:15 05:27 Temperature Pulse Rate 110 H 110 H Pulse Rate [ Anterior Bilateral Throughout] Pulse Rate [ From Monitor] Respiratory 20 22 Rate Respiratory Rate [Anterior Bilateral Throughout] Blood Pressure O2 Sat by Pulse 96 96 98 Oximetry 04/17/21 04/17/21 04/17/21 05:31 07:58 08:17 Temperature 99.2 F Pulse Rate 109 H 106 H Pulse Rate [ Anterior Bilateral Throughout] Pulse Rate [ From Monitor] Respiratory 25 H Rate Respiratory Rate [Anterior Bilateral Throughout] Blood Pressure 115/75 O2 Sat by Pulse 98 98 Oximetry 04/17/21 08:18 Temperature Pulse Rate Pulse Rate [ 106 H Anterior Bilateral Throughout] Pulse Rate [ From Monitor] Respiratory Rate Respiratory 33 H Rate [Anterior Bilateral Throughout] Blood Pressure O2 Sat by Pulse Oximetry Constitutional: no acute distress, asleep, other (morbidly obese female with mild ventilator dyssynchrony) Eyes: non-icteric, other (scleral erythema / bleeding is improving) ENT: oropharynx moist, oropharyngeal exudate pre (serosanguinous), other (ETT 25 cm BALJINDER) Neck: supple, no lymphadenopathy, no JVD, other (large circumference) Effort: mildly labored Ascultation: Bilateral: diminished breath sounds, rales, rhonchi Percussion: Bilateral: not dull Cardiovascular: regular rate and rhythm Gastrointestinal: normoactive bowel sounds, soft, non-tender, non-distended (protuberant) Integumentary: rash (now scaling / drying), other Extremities: no cyanosis, pulses normal, no ischemia or petechiae, edema (1+) Neurologic: non-focal exam, pupils equal and round, CN II-XII normal, other (unasble to assess re: AMS) Psychiatric: other (unasble to assess) CBC and BMP: 04/17/21 10:58 04/17/21 10:58 ABG, PT/INR, D-dimer: ABG ABG pH 7.294 (7.320-7.450) L 04/17/21 04:10 POC ABG pCO2 51.9 mmHg (32.0-48.0) H 04/17/21 04:10 ABG pCO2 68.6 mm Hg 04/13/21 03:52 POC ABG pO2 102.5 mmHg (83-108) 04/17/21 04:10 ABG pO2 98.9 mm Hg (80.0-90.0) H 04/13/21 03:52 POC ABG HCO3 24.6 04/17/21 04:10 ABG O2 Saturation 97.1 (0-100) 04/17/21 04:10 PT/INR, D-dimer PT 16.3 Sec. (12.2-14.9) H 04/15/21 Unknown INR 1.18 (0.87-1.13) H 04/15/21 Unknown D-Dimer 2696.79 ng/mlDDU (0-234) H 04/08/21 04:40 Abnormal lab findings: Abnormal Labs 03/13/21 03/13/21 03/13/21 13:26 13:26 15:40 WBC RBC Hgb Hct MCH 27 L MCHC RDW 17.0 H Plt Count Lymph % (Auto) [place] # (Auto) Eos # (Auto) Seg Neutrophils % Lymphocytes % (Manual) Eosinophils % (Manual) Basophils % (Manual) Nucleated RBC % Seg Neutrophils # Seg Neutrophils # Man Lymphocytes # (Manual) Monocytes # (Manual) Eosinophils # (Manual) Basophils # (Manual) Percent Retic PT INR Fibrinogen D-Dimer ABG pH POC ABG pCO2 POC ABG pO2 ABG pO2 ABG HCO3 ABG O2 Saturation ABG Base Excess ABG Hemoglobin ABG Oxyhemoglobin ABG Sodium ABG Potassium ABG Chloride ABG Glucose Oxyhemoglobin Carboxyhemoglobin Sodium 136 L Potassium Chloride Carbon Dioxide BUN Creatinine Glucose 125 H 130 H POC Glucose Hemoglobin A1c Calcium Phosphorus Magnesium AST ALT Alkaline Phosphatase Lactate Dehydrogenase 235 H C-Reactive Protein 4.30 H Total Protein Albumin Triglycerides Arterial Blood Glucose Arterial Blood Ionized Calcium Urine WBC (Auto) U Epithel Cells (Auto) Urine Creatinine Random Vancomycin Coronavirus (PCR) Crossmatch 03/13/21 03/14/21 03/14/21 21:33 03:35 06:21 WBC 20.0 H RBC Hgb Hct MCH 27 L MCHC RDW 17.5 H Plt Count Lymph % (Auto) 7.8 L [place] # (Auto) 1.3 H Eos # (Auto) Seg Neutrophils % 85.4 H Lymphocytes % (Manual) Eosinophils % (Manual) Basophils % (Manual) Nucleated RBC % Seg Neutrophils # 17.1 H Seg Neutrophils # Man Lymphocytes # (Manual) Monocytes # (Manual) Eosinophils # (Manual) Basophils # (Manual) Percent Retic PT INR Fibrinogen D-Dimer ABG pH 7.323 L 7.234 L POC ABG pCO2 POC ABG pO2 ABG pO2 69.8 L ABG HCO3 ABG O2 Saturation 92.9 L 94.9 L ABG Base Excess -3.3 L -5.4 L ABG Hemoglobin ABG Oxyhemoglobin ABG Sodium ABG Potassium ABG Chloride ABG Glucose Oxyhemoglobin 91.2 L 93.2 L Carboxyhemoglobin Sodium Potassium Chloride Carbon Dioxide BUN Creatinine Glucose POC Glucose Hemoglobin A1c Calcium Phosphorus Magnesium AST ALT Alkaline Phosphatase Lactate Dehydrogenase C-Reactive Protein Total Protein Albumin Triglycerides Arterial Blood Glucose Arterial Blood Ionized Calcium Urine WBC (Auto) U Epithel Cells (Auto) Urine Creatinine Random Vancomycin Coronavirus (PCR) Crossmatch 03/14/21 03/14/21 03/14/21 06:21 07:47 11:21 WBC RBC Hgb Hct MCH MCHC RDW Plt Count Lymph % (Auto) [place] # (Auto) Eos # (Auto) Seg Neutrophils % Lymphocytes % (Manual) Eosinophils % (Manual) Basophils % (Manual) Nucleated RBC % Seg Neutrophils # Seg Neutrophils # Man Lymphocytes # (Manual) Monocytes # (Manual) Eosinophils # (Manual) Basophils # (Manual) Percent Retic PT INR Fibrinogen D-Dimer ABG pH POC ABG pCO2 POC ABG pO2 ABG pO2 ABG HCO3 ABG O2 Saturation ABG Base Excess ABG Hemoglobin ABG Oxyhemoglobin ABG Sodium ABG Potassium ABG Chloride ABG Glucose Oxyhemoglobin Carboxyhemoglobin Sodium 136 L 136 L Potassium 6.2 H* D 5.4 H Chloride Carbon Dioxide 21 L 21 L BUN Creatinine 1.5 H D 1.8 H Glucose 144 H 141 H POC Glucose 147 H Hemoglobin A1c Calcium Phosphorus Magnesium AST ALT Alkaline Phosphatase Lactate Dehydrogenase C-Reactive Protein Total Protein 8.7 H 9.2 H Albumin 3.8 L Triglycerides Arterial Blood Glucose Arterial Blood Ionized Calcium Urine WBC (Auto) U Epithel Cells (Auto) Urine Creatinine Random Vancomycin Coronavirus (PCR) Crossmatch 03/14/21 03/14/21 03/14/21 17:29 17:50 18:35 WBC RBC Hgb Hct MCH MCHC RDW Plt Count Lymph % (Auto) [place] # (Auto) Eos # (Auto) Seg Neutrophils % Lymphocytes % (Manual) Eosinophils % (Manual) Basophils % (Manual) Nucleated RBC % Seg Neutrophils # Seg Neutrophils # Man Lymphocytes # (Manual) Monocytes # (Manual) Eosinophils # (Manual) Basophils # (Manual) Percent Retic PT INR Fibrinogen D-Dimer ABG pH POC ABG pCO2 POC ABG pO2 ABG pO2 ABG HCO3 ABG O2 Saturation ABG Base Excess ABG Hemoglobin ABG Oxyhemoglobin ABG Sodium ABG Potassium ABG Chloride ABG Glucose Oxyhemoglobin Carboxyhemoglobin Sodium 135 L Potassium 6.4 H* Chloride Carbon Dioxide 15 L BUN 26 H Creatinine 3.4 H D Glucose 165 H POC Glucose 209 H Hemoglobin A1c Calcium Phosphorus Magnesium AST ALT Alkaline Phosphatase Lactate Dehydrogenase C-Reactive Protein Total Protein Albumin Triglycerides Arterial Blood Glucose Arterial Blood Ionized Calcium Urine WBC (Auto) U Epithel Cells (Auto) Urine Creatinine 40.1 H Random Vancomycin Coronavirus (PCR) Crossmatch 03/14/21 03/14/21 03/14/21 18:46 22:23 23:52 WBC RBC Hgb Hct MCH MCHC RDW Plt Count Lymph % (Auto) [place] # (Auto) Eos # (Auto) Seg Neutrophils % Lymphocytes % (Manual) Eosinophils % (Manual) Basophils % (Manual) Nucleated RBC % Seg Neutrophils # Seg Neutrophils # Man Lymphocytes # (Manual) Monocytes # (Manual) Eosinophils # (Manual) Basophils # (Manual) Percent Retic PT INR Fibrinogen D-Dimer ABG pH 7.270 L POC ABG pCO2 POC ABG pO2 63.4 L ABG pO2 ABG HCO3 ABG O2 Saturation ABG Base Excess ABG Hemoglobin ABG Oxyhemoglobin 90.2 L ABG Sodium 134.9 L ABG Potassium 5.3 H ABG Chloride ABG Glucose 134 H Oxyhemoglobin Carboxyhemoglobin Sodium 136 L Potassium 5.2 H Chloride Carbon Dioxide 20 L BUN 29 H Creatinine 3.6 H Glucose 236 H POC Glucose 128 H Hemoglobin A1c Calcium Phosphorus Magnesium AST ALT Alkaline Phosphatase Lactate Dehydrogenase C-Reactive Protein Total Protein Albumin 3.2 L Triglycerides Arterial Blood Glucose 134 H Arterial Blood Ionized Calcium Urine WBC (Auto) U Epithel Cells (Auto) Urine Creatinine Random Vancomycin Coronavirus (PCR) Crossmatch 03/14/21 03/15/21 03/15/21 Unknown 05:00 05:09 WBC 22.5 H RBC Hgb Hct MCH 27 L MCHC RDW 17.6 H Plt Count Lymph % (Auto) [place] # (Auto) Eos # (Auto) Seg Neutrophils % Lymphocytes % (Manual) Eosinophils % (Manual) Basophils % (Manual) Nucleated RBC % Seg Neutrophils # Seg Neutrophils # Man Lymphocytes # (Manual) Monocytes # (Manual) Eosinophils # (Manual) Basophils # (Manual) Percent Retic PT INR Fibrinogen D-Dimer ABG pH POC ABG pCO2 POC ABG pO2 ABG pO2 ABG HCO3 ABG O2 Saturation ABG Base Excess ABG Hemoglobin ABG Oxyhemoglobin ABG Sodium ABG Potassium ABG Chloride ABG Glucose Oxyhemoglobin Carboxyhemoglobin Sodium Potassium Chloride Carbon Dioxide BUN Creatinine Glucose POC Glucose 116 H Hemoglobin A1c Calcium Phosphorus Magnesium AST ALT Alkaline Phosphatase Lactate Dehydrogenase C-Reactive Protein Total Protein Albumin Triglycerides Arterial Blood Glucose Arterial Blood Ionized Calcium Urine WBC (Auto) U Epithel Cells (Auto) Urine Creatinine Random Vancomycin Coronavirus (PCR) Positive A Crossmatch 03/15/21 03/15/21 03/15/21 05:09 05:09 05:09 WBC RBC Hgb Hct MCH MCHC RDW Plt Count Lymph % (Auto) [place] # (Auto) Eos # (Auto) Seg Neutrophils % Lymphocytes % (Manual) Eosinophils % (Manual) Basophils % (Manual) Nucleated RBC % Seg Neutrophils # Seg Neutrophils # Man Lymphocytes # (Manual) Monocytes # (Manual) Eosinophils # (Manual) Basophils # (Manual) Percent Retic PT INR Fibrinogen D-Dimer ABG pH POC ABG pCO2 POC ABG pO2 ABG pO2 ABG HCO3 ABG O2 Saturation ABG Base Excess ABG Hemoglobin ABG Oxyhemoglobin ABG Sodium ABG Potassium ABG Chloride ABG Glucose Oxyhemoglobin Carboxyhemoglobin Sodium 136 L Potassium 6.5 H* D Chloride Carbon Dioxide 17 L BUN 41 H Creatinine 5.3 H Glucose 128 H POC Glucose Hemoglobin A1c 6.3 H Calcium Phosphorus Magnesium AST ALT Alkaline Phosphatase Lactate Dehydrogenase C-Reactive Protein 12.10 H Total Protein Albumin 3.1 L Triglycerides Arterial Blood Glucose Arterial Blood Ionized Calcium Urine WBC (Auto) U Epithel Cells (Auto) Urine Creatinine Random Vancomycin Coronavirus (PCR) Crossmatch 03/15/21 03/15/21 03/15/21 10:00 21:50 23:39 WBC RBC Hgb Hct MCH MCHC RDW Plt Count Lymph % (Auto) [place] # (Auto) Eos # (Auto) Seg Neutrophils % Lymphocytes % (Manual) Eosinophils % (Manual) Basophils % (Manual) Nucleated RBC % Seg Neutrophils # Seg Neutrophils # Man Lymphocytes # (Manual) Monocytes # (Manual) Eosinophils # (Manual) Basophils # (Manual) Percent Retic PT INR Fibrinogen D-Dimer ABG pH 7.098 L POC ABG pCO2 72.7 H POC ABG pO2 ABG pO2 162.5 H ABG HCO3 ABG O2 Saturation ABG Base Excess ABG Hemoglobin 10.1 L ABG Oxyhemoglobin ABG Sodium ABG Potassium 5.7 H ABG Chloride ABG Glucose Oxyhemoglobin Carboxyhemoglobin 0.4 L Sodium Potassium Chloride Carbon Dioxide BUN Creatinine Glucose POC Glucose 156 H Hemoglobin A1c Calcium Phosphorus Magnesium AST ALT Alkaline Phosphatase Lactate Dehydrogenase C-Reactive Protein Total Protein Albumin Triglycerides Arterial Blood Glucose Arterial Blood Ionized Calcium Urine WBC (Auto) U Epithel Cells (Auto) Urine Creatinine Random Vancomycin Coronavirus (PCR) Crossmatch 03/16/21 03/16/21 03/16/21 05:00 05:30 05:30 WBC 16.7 H RBC 3.59 L Hgb 9.6 L Hct 30.1 L MCH 27 L MCHC RDW 17.5 H Plt Count Lymph % (Auto) [place] # (Auto) Eos # (Auto) Seg Neutrophils % Lymphocytes % (Manual) Eosinophils % (Manual) Basophils % (Manual) Nucleated RBC % Seg Neutrophils # Seg Neutrophils # Man Lymphocytes # (Manual) Monocytes # (Manual) Eosinophils # (Manual) Basophils # (Manual) Percent Retic PT INR Fibrinogen D-Dimer ABG pH POC ABG pCO2 POC ABG pO2 ABG pO2 ABG HCO3 ABG O2 Saturation ABG Base Excess ABG Hemoglobin ABG Oxyhemoglobin ABG Sodium ABG Potassium ABG Chloride ABG Glucose Oxyhemoglobin Carboxyhemoglobin Sodium Potassium Chloride Carbon Dioxide BUN 46 H Creatinine 6.2 H Glucose 131 H POC Glucose Hemoglobin A1c Calcium Phosphorus 6.00 H D Magnesium AST ALT Alkaline Phosphatase Lactate Dehydrogenase 318 H C-Reactive Protein 18.60 H Total Protein Albumin 3.0 L Triglycerides Arterial Blood Glucose Arterial Blood Ionized Calcium Urine WBC (Auto) U Epithel Cells (Auto) Urine Creatinine Random Vancomycin Coronavirus (PCR) Crossmatch 03/16/21 03/16/21 03/16/21 05:51 06:37 08:58 WBC RBC Hgb Hct MCH MCHC RDW Plt Count Lymph % (Auto) [place] # (Auto) Eos # (Auto) Seg Neutrophils % Lymphocytes % (Manual) Eosinophils % (Manual) Basophils % (Manual) Nucleated RBC % Seg Neutrophils # Seg Neutrophils # Man Lymphocytes # (Manual) Monocytes # (Manual) Eosinophils # (Manual) Basophils # (Manual) Percent Retic PT INR Fibrinogen D-Dimer 3041.12 H ABG pH POC ABG pCO2 POC ABG pO2 ABG pO2 141.5 H ABG HCO3 ABG O2 Saturation ABG Base Excess ABG Hemoglobin 9.7 L ABG Oxyhemoglobin ABG Sodium ABG Potassium ABG Chloride ABG Glucose Oxyhemoglobin Carboxyhemoglobin Sodium Potassium Chloride Carbon Dioxide BUN Creatinine Glucose POC Glucose 126 H Hemoglobin A1c Calcium Phosphorus Magnesium AST ALT Alkaline Phosphatase Lactate Dehydrogenase C-Reactive Protein Total Protein Albumin Triglycerides Arterial Blood Glucose Arterial Blood Ionized Calcium Urine WBC (Auto) U Epithel Cells (Auto) Urine Creatinine Random Vancomycin Coronavirus (PCR) Crossmatch 03/16/21 03/16/21 03/16/21 12:11 16:51 21:00 WBC RBC Hgb Hct MCH MCHC RDW Plt Count Lymph % (Auto) [place] # (Auto) Eos # (Auto) Seg Neutrophils % Lymphocytes % (Manual) Eosinophils % (Manual) Basophils % (Manual) Nucleated RBC % Seg Neutrophils # Seg Neutrophils # Man Lymphocytes # (Manual) Monocytes # (Manual) Eosinophils # (Manual) Basophils # (Manual) Percent Retic PT INR Fibrinogen D-Dimer ABG pH 7.239 L POC ABG pCO2 61.5 H POC ABG pO2 80.8 L ABG pO2 ABG HCO3 ABG O2 Saturation ABG Base Excess ABG Hemoglobin 11.4 L ABG Oxyhemoglobin 93.5 L ABG Sodium ABG Potassium 5.4 H ABG Chloride ABG Glucose 137 H Oxyhemoglobin Carboxyhemoglobin 0.2 L Sodium Potassium Chloride Carbon Dioxide BUN Creatinine Glucose POC Glucose 156 H 133 H Hemoglobin A1c Calcium Phosphorus Magnesium AST ALT Alkaline Phosphatase Lactate Dehydrogenase C-Reactive Protein Total Protein Albumin Triglycerides Arterial Blood Glucose 137 H Arterial Blood Ionized Calcium Urine WBC (Auto) U Epithel Cells (Auto) Urine Creatinine Random Vancomycin Coronavirus (PCR) Crossmatch 03/16/21 03/17/21 03/17/21 23:42 05:23 05:23 WBC 18.4 H RBC Hgb Hct MCH 27 L MCHC RDW 17.4 H Plt Count Lymph % (Auto) [place] # (Auto) Eos # (Auto) Seg Neutrophils % Lymphocytes % (Manual) Eosinophils % (Manual) Basophils % (Manual) Nucleated RBC % Seg Neutrophils # Seg Neutrophils # Man Lymphocytes # (Manual) Monocytes # (Manual) Eosinophils # (Manual) Basophils # (Manual) Percent Retic PT INR Fibrinogen D-Dimer ABG pH POC ABG pCO2 POC ABG pO2 ABG pO2 ABG HCO3 ABG O2 Saturation ABG Base Excess ABG Hemoglobin ABG Oxyhemoglobin ABG Sodium ABG Potassium ABG Chloride ABG Glucose Oxyhemoglobin Carboxyhemoglobin Sodium Potassium 5.2 H Chloride Carbon Dioxide 21 L BUN 79 H Creatinine 8.6 H Glucose 124 H POC Glucose 133 H Hemoglobin A1c Calcium Phosphorus Magnesium AST ALT Alkaline Phosphatase Lactate Dehydrogenase C-Reactive Protein Total Protein Albumin 3.2 L Triglycerides 285 H Arterial Blood Glucose Arterial Blood Ionized Calcium Urine WBC (Auto) U Epithel Cells (Auto) Urine Creatinine Random Vancomycin Coronavirus (PCR) Crossmatch 03/17/21 03/17/21 03/17/21 05:23 10:48 12:20 WBC RBC Hgb Hct MCH MCHC RDW Plt Count Lymph % (Auto) [place] # (Auto) Eos # (Auto) Seg Neutrophils % Lymphocytes % (Manual) Eosinophils % (Manual) Basophils % (Manual) Nucleated RBC % Seg Neutrophils # Seg Neutrophils # Man Lymphocytes # (Manual) Monocytes # (Manual) Eosinophils # (Manual) Basophils # (Manual) Percent Retic PT INR Fibrinogen D-Dimer ABG pH 7.294 L POC ABG pCO2 POC ABG pO2 ABG pO2 90.3 H ABG HCO3 ABG O2 Saturation ABG Base Excess ABG Hemoglobin 9.9 L ABG Oxyhemoglobin ABG Sodium ABG Potassium ABG Chloride ABG Glucose Oxyhemoglobin Carboxyhemoglobin Sodium Potassium 5.2 H Chloride Carbon Dioxide 21 L BUN 79 H Creatinine 8.4 H Glucose 125 H POC Glucose 171 H Hemoglobin A1c Calcium Phosphorus 9.90 H D Magnesium 2.40 H AST ALT Alkaline Phosphatase Lactate Dehydrogenase C-Reactive Protein Total Protein Albumin Triglycerides Arterial Blood Glucose Arterial Blood Ionized Calcium Urine WBC (Auto) U Epithel Cells (Auto) Urine Creatinine Random Vancomycin Coronavirus (PCR) Crossmatch 03/17/21 03/17/21 03/18/21 17:24 21:00 04:30 WBC RBC Hgb Hct MCH MCHC RDW Plt Count Lymph % (Auto) [place] # (Auto) Eos # (Auto) Seg Neutrophils % Lymphocytes % (Manual) Eosinophils % (Manual) Basophils % (Manual) Nucleated RBC % Seg Neutrophils # Seg Neutrophils # Man Lymphocytes # (Manual) Monocytes # (Manual) Eosinophils # (Manual) Basophils # (Manual) Percent Retic PT INR Fibrinogen D-Dimer 9953.09 H ABG pH 7.310 L POC ABG pCO2 54.5 H POC ABG pO2 62.3 L ABG pO2 ABG HCO3 ABG O2 Saturation ABG Base Excess ABG Hemoglobin 10.2 L ABG Oxyhemoglobin 88.6 L ABG Sodium ABG Potassium 4.7 H ABG Chloride ABG Glucose 99 H Oxyhemoglobin Carboxyhemoglobin 0.3 L Sodium Potassium Chloride Carbon Dioxide BUN Creatinine Glucose POC Glucose 121 H Hemoglobin A1c Calcium Phosphorus Magnesium AST ALT Alkaline Phosphatase Lactate Dehydrogenase C-Reactive Protein Total Protein Albumin Triglycerides Arterial Blood Glucose 99 H Arterial Blood Ionized Calcium 4.3 L Urine WBC (Auto) U Epithel Cells (Auto) Urine Creatinine Random Vancomycin Coronavirus (PCR) Crossmatch 03/18/21 03/18/21 03/18/21 04:30 04:30 11:34 WBC 12.8 H RBC 3.49 L Hgb 9.4 L Hct 29.3 L MCH 27 L MCHC RDW 17.4 H Plt Count Lymph % (Auto) [place] # (Auto) Eos # (Auto) Seg Neutrophils % Lymphocytes % (Manual) Eosinophils % (Manual) Basophils % (Manual) Nucleated RBC % Seg Neutrophils # Seg Neutrophils # Man Lymphocytes # (Manual) Monocytes # (Manual) Eosinophils # (Manual) Basophils # (Manual) Percent Retic PT INR Fibrinogen D-Dimer ABG pH POC ABG pCO2 POC ABG pO2 ABG pO2 ABG HCO3 ABG O2 Saturation ABG Base Excess ABG Hemoglobin ABG Oxyhemoglobin ABG Sodium ABG Potassium ABG Chloride ABG Glucose Oxyhemoglobin Carboxyhemoglobin Sodium Potassium Chloride Carbon Dioxide BUN 69 H Creatinine 7.3 H Glucose POC Glucose 114 H Hemoglobin A1c Calcium 8.2 L Phosphorus 7.60 H D Magnesium AST ALT Alkaline Phosphatase Lactate Dehydrogenase 477 H C-Reactive Protein 6.90 H Total Protein Albumin Triglycerides Arterial Blood Glucose Arterial Blood Ionized Calcium Urine WBC (Auto) U Epithel Cells (Auto) Urine Creatinine Random Vancomycin Coronavirus (PCR) Crossmatch 03/18/21 03/19/21 03/19/21 21:44 04:13 04:13 WBC 13.7 H RBC 3.32 L Hgb 9.0 L Hct 28.1 L MCH 27 L MCHC RDW 16.9 H Plt Count Lymph % (Auto) [place] # (Auto) Eos # (Auto) Seg Neutrophils % Lymphocytes % (Manual) Eosinophils % (Manual) Basophils % (Manual) Nucleated RBC % Seg Neutrophils # Seg Neutrophils # Man Lymphocytes # (Manual) Monocytes # (Manual) Eosinophils # (Manual) Basophils # (Manual) Percent Retic PT INR Fibrinogen D-Dimer ABG pH 7.290 L POC ABG pCO2 POC ABG pO2 ABG pO2 119.7 H ABG HCO3 28.0 H ABG O2 Saturation ABG Base Excess ABG Hemoglobin 9.6 L ABG Oxyhemoglobin ABG Sodium ABG Potassium ABG Chloride ABG Glucose Oxyhemoglobin Carboxyhemoglobin Sodium Potassium Chloride Carbon Dioxide BUN Creatinine Glucose POC Glucose Hemoglobin A1c Calcium Phosphorus Magnesium AST ALT Alkaline Phosphatase Lactate Dehydrogenase C-Reactive Protein Total Protein Albumin Triglycerides Arterial Blood Glucose Arterial Blood Ionized Calcium Urine WBC (Auto) U Epithel Cells (Auto) Urine Creatinine Random Vancomycin 43.5 H Coronavirus (PCR) Crossmatch 03/19/21 03/19/21 03/19/21 04:13 05:59 11:40 WBC RBC Hgb Hct MCH MCHC RDW Plt Count Lymph % (Auto) [place] # (Auto) Eos # (Auto) Seg Neutrophils % Lymphocytes % (Manual) Eosinophils % (Manual) Basophils % (Manual) Nucleated RBC % Seg Neutrophils # Seg Neutrophils # Man Lymphocytes # (Manual) Monocytes # (Manual) Eosinophils # (Manual) Basophils # (Manual) Percent Retic PT INR Fibrinogen D-Dimer ABG pH POC ABG pCO2 POC ABG pO2 ABG pO2 ABG HCO3 ABG O2 Saturation ABG Base Excess ABG Hemoglobin ABG Oxyhemoglobin ABG Sodium ABG Potassium ABG Chloride ABG Glucose Oxyhemoglobin Carboxyhemoglobin Sodium Potassium Chloride Carbon Dioxide BUN 55 H Creatinine 7.0 H Glucose POC Glucose 116 H 145 H Hemoglobin A1c Calcium 8.1 L Phosphorus 7.90 H Magnesium AST ALT Alkaline Phosphatase Lactate Dehydrogenase C-Reactive Protein Total Protein Albumin Triglycerides Arterial Blood Glucose Arterial Blood Ionized Calcium Urine WBC (Auto) U Epithel Cells (Auto) Urine Creatinine Random Vancomycin Coronavirus (PCR) Crossmatch 03/19/21 03/19/21 03/20/21 17:01 23:41 04:00 WBC 15.6 H RBC 3.55 L Hgb 9.6 L Hct MCH 27 L MCHC RDW 16.8 H Plt Count 139 L Lymph % (Auto) [place] # (Auto) Eos # (Auto) Seg Neutrophils % Lymphocytes % (Manual) Eosinophils % (Manual) Basophils % (Manual) Nucleated RBC % Seg Neutrophils # Seg Neutrophils # Man Lymphocytes # (Manual) Monocytes # (Manual) Eosinophils # (Manual) Basophils # (Manual) Percent Retic PT INR Fibrinogen D-Dimer ABG pH POC ABG pCO2 POC ABG pO2 ABG pO2 ABG HCO3 ABG O2 Saturation ABG Base Excess ABG Hemoglobin ABG Oxyhemoglobin ABG Sodium ABG Potassium ABG Chloride ABG Glucose Oxyhemoglobin Carboxyhemoglobin Sodium Potassium Chloride Carbon Dioxide BUN Creatinine Glucose POC Glucose 111 H 118 H Hemoglobin A1c Calcium Phosphorus Magnesium AST ALT Alkaline Phosphatase Lactate Dehydrogenase C-Reactive Protein Total Protein Albumin Triglycerides Arterial Blood Glucose Arterial Blood Ionized Calcium Urine WBC (Auto) U Epithel Cells (Auto) Urine Creatinine Random Vancomycin Coronavirus (PCR) Crossmatch 03/20/21 03/20/21 03/20/21 04:00 04:00 04:37 WBC RBC Hgb Hct MCH MCHC RDW Plt Count Lymph % (Auto) [place] # (Auto) Eos # (Auto) Seg Neutrophils % Lymphocytes % (Manual) Eosinophils % (Manual) Basophils % (Manual) Nucleated RBC % Seg Neutrophils # Seg Neutrophils # Man Lymphocytes # (Manual) Monocytes # (Manual) Eosinophils # (Manual) Basophils # (Manual) Percent Retic PT INR Fibrinogen D-Dimer > 43248 H ABG pH 7.306 L POC ABG pCO2 POC ABG pO2 ABG pO2 ABG HCO3 27.9 H ABG O2 Saturation ABG Base Excess ABG Hemoglobin 5.2 L ABG Oxyhemoglobin ABG Sodium ABG Potassium ABG Chloride ABG Glucose Oxyhemoglobin Carboxyhemoglobin Sodium Potassium 5.2 H Chloride 97.6 L Carbon Dioxide BUN 52 H Creatinine 6.2 H Glucose 104 H POC Glucose Hemoglobin A1c Calcium Phosphorus 8.60 H Magnesium AST ALT Alkaline Phosphatase Lactate Dehydrogenase C-Reactive Protein 6.90 H Total Protein Albumin Triglycerides Arterial Blood Glucose Arterial Blood Ionized Calcium Urine WBC (Auto) U Epithel Cells (Auto) Urine Creatinine Random Vancomycin Coronavirus (PCR) Crossmatch 03/20/21 03/20/21 03/20/21 13:50 17:46 17:56 WBC RBC Hgb Hct MCH MCHC RDW Plt Count Lymph % (Auto) [place] # (Auto) Eos # (Auto) Seg Neutrophils % Lymphocytes % (Manual) Eosinophils % (Manual) Basophils % (Manual) Nucleated RBC % Seg Neutrophils # Seg Neutrophils # Man Lymphocytes # (Manual) Monocytes # (Manual) Eosinophils # (Manual) Basophils # (Manual) Percent Retic PT INR Fibrinogen D-Dimer ABG pH POC ABG pCO2 POC ABG pO2 ABG pO2 ABG HCO3 ABG O2 Saturation ABG Base Excess ABG Hemoglobin ABG Oxyhemoglobin ABG Sodium ABG Potassium ABG Chloride ABG Glucose Oxyhemoglobin Carboxyhemoglobin Sodium Potassium Chloride Carbon Dioxide BUN 63 H 43 H Creatinine Glucose POC Glucose 145 H Hemoglobin A1c Calcium Phosphorus Magnesium AST ALT Alkaline Phosphatase Lactate Dehydrogenase C-Reactive Protein Total Protein Albumin Triglycerides Arterial Blood Glucose Arterial Blood Ionized Calcium Urine WBC (Auto) U Epithel Cells (Auto) Urine Creatinine Random Vancomycin Coronavirus (PCR) Crossmatch 03/20/21 03/21/21 03/21/21 23:18 06:58 06:58 WBC 14.4 H RBC 3.41 L Hgb 9.5 L Hct 28.6 L MCH MCHC RDW 17.4 H Plt Count 107 L Lymph % (Auto) [place] # (Auto) Eos # (Auto) Seg Neutrophils % Lymphocytes % (Manual) Eosinophils % (Manual) Basophils % (Manual) Nucleated RBC % Seg Neutrophils # Seg Neutrophils # Man Lymphocytes # (Manual) Monocytes # (Manual) Eosinophils # (Manual) Basophils # (Manual) Percent Retic PT INR Fibrinogen D-Dimer ABG pH POC ABG pCO2 POC ABG pO2 ABG pO2 ABG HCO3 ABG O2 Saturation ABG Base Excess ABG Hemoglobin ABG Oxyhemoglobin ABG Sodium ABG Potassium ABG Chloride ABG Glucose Oxyhemoglobin Carboxyhemoglobin Sodium Potassium Chloride Carbon Dioxide BUN 60 H Creatinine 7.7 H Glucose POC Glucose 106 H Hemoglobin A1c Calcium Phosphorus Magnesium AST ALT Alkaline Phosphatase Lactate Dehydrogenase C-Reactive Protein Total Protein Albumin Triglycerides Arterial Blood Glucose Arterial Blood Ionized Calcium Urine WBC (Auto) U Epithel Cells (Auto) Urine Creatinine Random Vancomycin Coronavirus (PCR) Crossmatch 03/21/21 03/21/21 03/21/21 11:11 18:04 Unknown WBC RBC Hgb Hct MCH MCHC RDW Plt Count Lymph % (Auto) [place] # (Auto) Eos # (Auto) Seg Neutrophils % Lymphocytes % (Manual) Eosinophils % (Manual) Basophils % (Manual) Nucleated RBC % Seg Neutrophils # Seg Neutrophils # Man Lymphocytes # (Manual) Monocytes # (Manual) Eosinophils # (Manual) Basophils # (Manual) Percent Retic PT INR Fibrinogen D-Dimer ABG pH 7.270 L POC ABG pCO2 58.7 H POC ABG pO2 76.9 L ABG pO2 ABG HCO3 ABG O2 Saturation ABG Base Excess ABG Hemoglobin 9.9 L ABG Oxyhemoglobin 92.4 L ABG Sodium 135.8 L ABG Potassium 4.6 H ABG Chloride ABG Glucose Oxyhemoglobin Carboxyhemoglobin 0.1 L Sodium Potassium Chloride Carbon Dioxide BUN Creatinine Glucose POC Glucose 109 H 141 H Hemoglobin A1c Calcium Phosphorus Magnesium AST ALT Alkaline Phosphatase Lactate Dehydrogenase C-Reactive Protein Total Protein Albumin Triglycerides Arterial Blood Glucose Arterial Blood Ionized Calcium 4.5 L Urine WBC (Auto) U Epithel Cells (Auto) Urine Creatinine Random Vancomycin Coronavirus (PCR) Crossmatch 03/22/21 03/22/21 03/22/21 03:09 07:10 10:00 WBC RBC Hgb Hct MCH MCHC RDW Plt Count Lymph % (Auto) [place] # (Auto) Eos # (Auto) Seg Neutrophils % Lymphocytes % (Manual) Eosinophils % (Manual) Basophils % (Manual) Nucleated RBC % Seg Neutrophils # Seg Neutrophils # Man Lymphocytes # (Manual) Monocytes # (Manual) Eosinophils # (Manual) Basophils # (Manual) Percent Retic PT INR Fibrinogen D-Dimer ABG pH 7.206 L 7.245 L POC ABG pCO2 55.6 H POC ABG pO2 ABG pO2 90.6 H ABG HCO3 ABG O2 Saturation ABG Base Excess -4.4 L ABG Hemoglobin 9.0 L 8.4 L ABG Oxyhemoglobin ABG Sodium 123.4 L ABG Potassium 5.6 H ABG Chloride ABG Glucose 106 H Oxyhemoglobin 94.5 L Carboxyhemoglobin 0.1 L Sodium Potassium 5.4 H Chloride 96.8 L Carbon Dioxide BUN 89 H Creatinine 8.7 H Glucose 131 H POC Glucose Hemoglobin A1c Calcium Phosphorus Magnesium AST ALT Alkaline Phosphatase Lactate Dehydrogenase C-Reactive Protein 9.40 H Total Protein Albumin Triglycerides Arterial Blood Glucose 106 H Arterial Blood Ionized Calcium Urine WBC (Auto) U Epithel Cells (Auto) Urine Creatinine Random Vancomycin Coronavirus (PCR) Crossmatch 03/22/21 03/22/21 03/22/21 10:00 12:37 13:19 WBC RBC 3.05 L Hgb 8.4 L Hct 25.5 L MCH MCHC RDW 17.5 H Plt Count 108 L Lymph % (Auto) [place] # (Auto) Eos # (Auto) Seg Neutrophils % Lymphocytes % (Manual) Eosinophils % (Manual) Basophils % (Manual) Nucleated RBC % Seg Neutrophils # Seg Neutrophils # Man Lymphocytes # (Manual) Monocytes # (Manual) Eosinophils # (Manual) Basophils # (Manual) Percent Retic PT INR Fibrinogen D-Dimer ABG pH POC ABG pCO2 POC ABG pO2 ABG pO2 ABG HCO3 ABG O2 Saturation ABG Base Excess ABG Hemoglobin ABG Oxyhemoglobin ABG Sodium ABG Potassium ABG Chloride ABG Glucose Oxyhemoglobin Carboxyhemoglobin Sodium Potassium Chloride Carbon Dioxide BUN Creatinine 8.7 H Glucose POC Glucose 140 H Hemoglobin A1c Calcium Phosphorus Magnesium AST ALT Alkaline Phosphatase Lactate Dehydrogenase C-Reactive Protein Total Protein Albumin Triglycerides Arterial Blood Glucose Arterial Blood Ionized Calcium Urine WBC (Auto) U Epithel Cells (Auto) Urine Creatinine Random Vancomycin Coronavirus (PCR) Crossmatch 03/22/21 03/22/21 03/22/21 13:40 17:14 18:21 WBC RBC Hgb Hct MCH MCHC RDW Plt Count Lymph % (Auto) [place] # (Auto) Eos # (Auto) Seg Neutrophils % Lymphocytes % (Manual) Eosinophils % (Manual) Basophils % (Manual) Nucleated RBC % Seg Neutrophils # Seg Neutrophils # Man Lymphocytes # (Manual) Monocytes # (Manual) Eosinophils # (Manual) Basophils # (Manual) Percent Retic PT 15.8 H INR 1.14 H Fibrinogen D-Dimer > 59290 H ABG pH POC ABG pCO2 POC ABG pO2 ABG pO2 ABG HCO3 ABG O2 Saturation ABG Base Excess ABG Hemoglobin ABG Oxyhemoglobin ABG Sodium ABG Potassium ABG Chloride ABG Glucose Oxyhemoglobin Carboxyhemoglobin Sodium Potassium Chloride Carbon Dioxide BUN Creatinine Glucose POC Glucose 117 H 112 H Hemoglobin A1c Calcium Phosphorus Magnesium AST ALT Alkaline Phosphatase Lactate Dehydrogenase C-Reactive Protein Total Protein Albumin Triglycerides Arterial Blood Glucose Arterial Blood Ionized Calcium Urine WBC (Auto) U Epithel Cells (Auto) Urine Creatinine Random Vancomycin Coronavirus (PCR) Crossmatch 03/22/21 03/22/21 03/23/21 21:25 22:57 04:30 WBC RBC Hgb Hct MCH MCHC RDW Plt Count Lymph % (Auto) [place] # (Auto) Eos # (Auto) Seg Neutrophils % Lymphocytes % (Manual) Eosinophils % (Manual) Basophils % (Manual) Nucleated RBC % Seg Neutrophils # Seg Neutrophils # Man Lymphocytes # (Manual) Monocytes # (Manual) Eosinophils # (Manual) Basophils # (Manual) Percent Retic PT INR Fibrinogen D-Dimer ABG pH 7.188 L* POC ABG pCO2 POC ABG pO2 ABG pO2 97.9 H ABG HCO3 ABG O2 Saturation ABG Base Excess -3.7 L ABG Hemoglobin 9.2 L ABG Oxyhemoglobin ABG Sodium ABG Potassium ABG Chloride ABG Glucose Oxyhemoglobin 94.4 L Carboxyhemoglobin Sodium Potassium Chloride Carbon Dioxide BUN Creatinine Glucose POC Glucose 106 H Hemoglobin A1c Calcium Phosphorus Magnesium AST ALT Alkaline Phosphatase Lactate Dehydrogenase C-Reactive Protein Total Protein Albumin Triglycerides 381 H Arterial Blood Glucose Arterial Blood Ionized Calcium Urine WBC (Auto) U Epithel Cells (Auto) Urine Creatinine Random Vancomycin Coronavirus (PCR) Crossmatch 03/23/21 03/23/21 03/23/21 04:30 04:30 05:37 WBC 20.1 H RBC 3.17 L Hgb 8.6 L Hct 27.2 L MCH 27 L MCHC RDW 17.4 H Plt Count 118 L Lymph % (Auto) [place] # (Auto) Eos # (Auto) Seg Neutrophils % Lymphocytes % (Manual) Eosinophils % (Manual) Basophils % (Manual) Nucleated RBC % Seg Neutrophils # Seg Neutrophils # Man Lymphocytes # (Manual) Monocytes # (Manual) Eosinophils # (Manual) Basophils # (Manual) Percent Retic PT INR Fibrinogen D-Dimer ABG pH POC ABG pCO2 POC ABG pO2 ABG pO2 ABG HCO3 ABG O2 Saturation ABG Base Excess ABG Hemoglobin ABG Oxyhemoglobin ABG Sodium ABG Potassium ABG Chloride ABG Glucose Oxyhemoglobin Carboxyhemoglobin Sodium Potassium 5.2 H Chloride 97.1 L Carbon Dioxide 21 L BUN 82 H Creatinine 9.1 H Glucose 109 H POC Glucose 130 H Hemoglobin A1c Calcium Phosphorus 10.80 H Magnesium 3.50 H AST ALT Alkaline Phosphatase Lactate Dehydrogenase C-Reactive Protein Total Protein Albumin Triglycerides Arterial Blood Glucose Arterial Blood Ionized Calcium Urine WBC (Auto) U Epithel Cells (Auto) Urine Creatinine Random Vancomycin Coronavirus (PCR) Crossmatch 03/23/21 03/23/21 03/23/21 08:44 11:30 16:09 WBC RBC Hgb Hct MCH MCHC RDW Plt Count Lymph % (Auto) [place] # (Auto) Eos # (Auto) Seg Neutrophils % Lymphocytes % (Manual) Eosinophils % (Manual) Basophils % (Manual) Nucleated RBC % Seg Neutrophils # Seg Neutrophils # Man Lymphocytes # (Manual) Monocytes # (Manual) Eosinophils # (Manual) Basophils # (Manual) Percent Retic PT INR Fibrinogen D-Dimer ABG pH 7.190 L POC ABG pCO2 57.9 H POC ABG pO2 79.2 L ABG pO2 ABG HCO3 ABG O2 Saturation ABG Base Excess ABG Hemoglobin 11.8 L ABG Oxyhemoglobin 92.3 L ABG Sodium 131.0 L ABG Potassium 5.0 H ABG Chloride ABG Glucose 122 H Oxyhemoglobin Carboxyhemoglobin 0.4 L Sodium Potassium Chloride Carbon Dioxide BUN Creatinine Glucose POC Glucose 129 H 148 H Hemoglobin A1c Calcium Phosphorus Magnesium AST ALT Alkaline Phosphatase Lactate Dehydrogenase C-Reactive Protein Total Protein Albumin Triglycerides Arterial Blood Glucose 122 H Arterial Blood Ionized Calcium 4.4 L Urine WBC (Auto) U Epithel Cells (Auto) Urine Creatinine Random Vancomycin Coronavirus (PCR) Crossmatch 03/23/21 03/24/21 03/24/21 21:00 03:35 04:00 WBC 17.8 H RBC 2.96 L Hgb 8.1 L Hct 25.0 L MCH 27 L MCHC RDW 17.7 H Plt Count 124 L Lymph % (Auto) [place] # (Auto) Eos # (Auto) Seg Neutrophils % Lymphocytes % (Manual) Eosinophils % (Manual) Basophils % (Manual) Nucleated RBC % Seg Neutrophils # Seg Neutrophils # Man Lymphocytes # (Manual) Monocytes # (Manual) Eosinophils # (Manual) Basophils # (Manual) Percent Retic PT INR Fibrinogen D-Dimer ABG pH 7.223 L POC ABG pCO2 50.3 H POC ABG pO2 114.4 H ABG pO2 ABG HCO3 ABG O2 Saturation ABG Base Excess ABG Hemoglobin 8.8 L ABG Oxyhemoglobin ABG Sodium 130.4 L ABG Potassium 5.1 H ABG Chloride ABG Glucose 126 H Oxyhemoglobin Carboxyhemoglobin 0.2 L Sodium Potassium Chloride Carbon Dioxide BUN Creatinine Glucose POC Glucose 148 H Hemoglobin A1c Calcium Phosphorus Magnesium AST ALT Alkaline Phosphatase Lactate Dehydrogenase C-Reactive Protein Total Protein Albumin Triglycerides Arterial Blood Glucose 126 H Arterial Blood Ionized Calcium 4.4 L Urine WBC (Auto) U Epithel Cells (Auto) Urine Creatinine Random Vancomycin Coronavirus (PCR) Crossmatch 03/24/21 03/24/21 03/24/21 04:00 06:49 12:29 WBC RBC Hgb Hct MCH MCHC RDW Plt Count Lymph % (Auto) [place] # (Auto) Eos # (Auto) Seg Neutrophils % Lymphocytes % (Manual) Eosinophils % (Manual) Basophils % (Manual) Nucleated RBC % Seg Neutrophils # Seg Neutrophils # Man Lymphocytes # (Manual) Monocytes # (Manual) Eosinophils # (Manual) Basophils # (Manual) Percent Retic PT INR Fibrinogen D-Dimer ABG pH POC ABG pCO2 POC ABG pO2 ABG pO2 ABG HCO3 ABG O2 Saturation ABG Base Excess ABG Hemoglobin ABG Oxyhemoglobin ABG Sodium ABG Potassium ABG Chloride ABG Glucose Oxyhemoglobin Carboxyhemoglobin Sodium Potassium Chloride 95.6 L Carbon Dioxide 20 L BUN 108 H Creatinine 10.8 H Glucose 155 H POC Glucose 136 H 142 H Hemoglobin A1c Calcium Phosphorus Magnesium AST ALT Alkaline Phosphatase Lactate Dehydrogenase C-Reactive Protein Total Protein Albumin Triglycerides Arterial Blood Glucose Arterial Blood Ionized Calcium Urine WBC (Auto) U Epithel Cells (Auto) Urine Creatinine Random Vancomycin Coronavirus (PCR) Crossmatch 03/24/21 03/25/21 03/25/21 21:35 00:15 05:51 WBC RBC Hgb Hct MCH MCHC RDW Plt Count Lymph % (Auto) [place] # (Auto) Eos # (Auto) Seg Neutrophils % Lymphocytes % (Manual) Eosinophils % (Manual) Basophils % (Manual) Nucleated RBC % Seg Neutrophils # Seg Neutrophils # Man Lymphocytes # (Manual) Monocytes # (Manual) Eosinophils # (Manual) Basophils # (Manual) Percent Retic PT INR Fibrinogen D-Dimer ABG pH 7.241 L POC ABG pCO2 POC ABG pO2 ABG pO2 72.4 L ABG HCO3 ABG O2 Saturation 90.3 L ABG Base Excess ABG Hemoglobin 7.9 L ABG Oxyhemoglobin ABG Sodium ABG Potassium ABG Chloride ABG Glucose Oxyhemoglobin 88.4 L Carboxyhemoglobin Sodium Potassium Chloride Carbon Dioxide BUN Creatinine Glucose POC Glucose 110 H 121 H Hemoglobin A1c Calcium Phosphorus Magnesium AST ALT Alkaline Phosphatase Lactate Dehydrogenase C-Reactive Protein Total Protein Albumin Triglycerides Arterial Blood Glucose Arterial Blood Ionized Calcium Urine WBC (Auto) U Epithel Cells (Auto) Urine Creatinine Random Vancomycin Coronavirus (PCR) Crossmatch 03/25/21 03/25/21 03/25/21 05:54 05:54 12:21 WBC 12.4 H RBC 2.52 L Hgb 6.9 L Hct 21.1 L MCH MCHC RDW 17.4 H Plt Count 102 L Lymph % (Auto) [place] # (Auto) Eos # (Auto) Seg Neutrophils % Lymphocytes % (Manual) Eosinophils % (Manual) Basophils % (Manual) Nucleated RBC % Seg Neutrophils # Seg Neutrophils # Man Lymphocytes # (Manual) Monocytes # (Manual) Eosinophils # (Manual) Basophils # (Manual) Percent Retic PT INR Fibrinogen D-Dimer ABG pH POC ABG pCO2 POC ABG pO2 ABG pO2 ABG HCO3 ABG O2 Saturation ABG Base Excess ABG Hemoglobin ABG Oxyhemoglobin ABG Sodium ABG Potassium ABG Chloride ABG Glucose Oxyhemoglobin Carboxyhemoglobin Sodium Potassium Chloride 96.7 L Carbon Dioxide BUN 81 H Creatinine 8.1 H Glucose 116 H POC Glucose 138 H Hemoglobin A1c Calcium 8.2 L Phosphorus Magnesium AST ALT Alkaline Phosphatase Lactate Dehydrogenase C-Reactive Protein Total Protein Albumin Triglycerides Arterial Blood Glucose Arterial Blood Ionized Calcium Urine WBC (Auto) U Epithel Cells (Auto) Urine Creatinine Random Vancomycin Coronavirus (PCR) Crossmatch 03/25/21 03/25/21 03/25/21 13:45 17:32 21:30 WBC RBC Hgb Hct MCH MCHC RDW Plt Count Lymph % (Auto) [place] # (Auto) Eos # (Auto) Seg Neutrophils % Lymphocytes % (Manual) Eosinophils % (Manual) Basophils % (Manual) Nucleated RBC % Seg Neutrophils # Seg Neutrophils # Man Lymphocytes # (Manual) Monocytes # (Manual) Eosinophils # (Manual) Basophils # (Manual) Percent Retic PT INR Fibrinogen D-Dimer ABG pH POC ABG pCO2 POC ABG pO2 ABG pO2 70.2 L ABG HCO3 ABG O2 Saturation ABG Base Excess ABG Hemoglobin 6.8 L ABG Oxyhemoglobin ABG Sodium ABG Potassium ABG Chloride ABG Glucose Oxyhemoglobin 94.5 L Carboxyhemoglobin Sodium Potassium Chloride Carbon Dioxide BUN Creatinine Glucose POC Glucose 110 H Hemoglobin A1c Calcium Phosphorus Magnesium AST ALT Alkaline Phosphatase Lactate Dehydrogenase C-Reactive Protein Total Protein Albumin Triglycerides Arterial Blood Glucose Arterial Blood Ionized Calcium Urine WBC (Auto) U Epithel Cells (Auto) Urine Creatinine Random Vancomycin Coronavirus (PCR) Crossmatch See Detail 03/25/21 03/25/21 03/26/21 23:29 Unknown 05:15 WBC 12.4 H 14.0 H RBC 2.49 L 2.83 L Hgb 6.8 L 7.6 L Hct 20.9 L 23.6 L MCH 27 L 27 L MCHC RDW 18.0 H 17.1 H Plt Count 107 L 116 L Lymph % (Auto) [place] # (Auto) Eos # (Auto) Seg Neutrophils % Lymphocytes % (Manual) Eosinophils % (Manual) Basophils % (Manual) Nucleated RBC % Seg Neutrophils # Seg Neutrophils # Man Lymphocytes # (Manual) Monocytes # (Manual) Eosinophils # (Manual) Basophils # (Manual) Percent Retic PT INR Fibrinogen D-Dimer ABG pH POC ABG pCO2 POC ABG pO2 ABG pO2 ABG HCO3 ABG O2 Saturation ABG Base Excess ABG Hemoglobin ABG Oxyhemoglobin ABG Sodium ABG Potassium ABG Chloride ABG Glucose Oxyhemoglobin Carboxyhemoglobin Sodium Potassium Chloride Carbon Dioxide BUN Creatinine Glucose POC Glucose 113 H Hemoglobin A1c Calcium Phosphorus Magnesium AST ALT Alkaline Phosphatase Lactate Dehydrogenase C-Reactive Protein Total Protein Albumin Triglycerides Arterial Blood Glucose Arterial Blood Ionized Calcium Urine WBC (Auto) U Epithel Cells (Auto) Urine Creatinine Random Vancomycin Coronavirus (PCR) Crossmatch 03/26/21 03/26/21 03/26/21 05:15 05:35 09:50 WBC RBC Hgb Hct MCH MCHC RDW Plt Count Lymph % (Auto) [place] # (Auto) Eos # (Auto) Seg Neutrophils % Lymphocytes % (Manual) Eosinophils % (Manual) Basophils % (Manual) Nucleated RBC % Seg Neutrophils # Seg Neutrophils # Man Lymphocytes # (Manual) Monocytes # (Manual) Eosinophils # (Manual) Basophils # (Manual) Percent Retic PT INR Fibrinogen D-Dimer ABG pH POC ABG pCO2 POC ABG pO2 ABG pO2 79.9 L ABG HCO3 ABG O2 Saturation ABG Base Excess ABG Hemoglobin 7.1 L ABG Oxyhemoglobin ABG Sodium ABG Potassium ABG Chloride ABG Glucose Oxyhemoglobin 94.9 L Carboxyhemoglobin Sodium Potassium 3.4 L Chloride Carbon Dioxide BUN 70 H Creatinine 7.3 H Glucose 142 H POC Glucose 130 H Hemoglobin A1c Calcium 8.2 L Phosphorus Magnesium AST ALT Alkaline Phosphatase Lactate Dehydrogenase C-Reactive Protein Total Protein Albumin Triglycerides 254 H Arterial Blood Glucose Arterial Blood Ionized Calcium Urine WBC (Auto) U Epithel Cells (Auto) Urine Creatinine Random Vancomycin Coronavirus (PCR) Crossmatch 03/26/21 03/26/21 03/26/21 11:45 16:36 23:33 WBC RBC Hgb Hct MCH MCHC RDW Plt Count Lymph % (Auto) [place] # (Auto) Eos # (Auto) Seg Neutrophils % Lymphocytes % (Manual) Eosinophils % (Manual) Basophils % (Manual) Nucleated RBC % Seg Neutrophils # Seg Neutrophils # Man Lymphocytes # (Manual) Monocytes # (Manual) Eosinophils # (Manual) Basophils # (Manual) Percent Retic PT INR Fibrinogen D-Dimer ABG pH POC ABG pCO2 POC ABG pO2 ABG pO2 ABG HCO3 ABG O2 Saturation ABG Base Excess ABG Hemoglobin ABG Oxyhemoglobin ABG Sodium ABG Potassium ABG Chloride ABG Glucose Oxyhemoglobin Carboxyhemoglobin Sodium Potassium Chloride Carbon Dioxide BUN Creatinine Glucose POC Glucose 123 H 121 H 120 H Hemoglobin A1c Calcium Phosphorus Magnesium AST ALT Alkaline Phosphatase Lactate Dehydrogenase C-Reactive Protein Total Protein Albumin Triglycerides Arterial Blood Glucose Arterial Blood Ionized Calcium Urine WBC (Auto) U Epithel Cells (Auto) Urine Creatinine Random Vancomycin Coronavirus (PCR) Crossmatch 03/27/21 03/27/21 03/27/21 03:20 04:14 08:20 WBC 13.2 H RBC 2.82 L Hgb 7.9 L Hct 23.5 L MCH MCHC RDW 17.3 H Plt Count 125 L Lymph % (Auto) [place] # (Auto) Eos # (Auto) Seg Neutrophils % Lymphocytes % (Manual) Eosinophils % (Manual) Basophils % (Manual) Nucleated RBC % Seg Neutrophils # Seg Neutrophils # Man Lymphocytes # (Manual) Monocytes # (Manual) Eosinophils # (Manual) Basophils # (Manual) Percent Retic PT INR Fibrinogen D-Dimer ABG pH POC ABG pCO2 50.0 H POC ABG pO2 58.3 L ABG pO2 ABG HCO3 ABG O2 Saturation ABG Base Excess ABG Hemoglobin 11.3 L ABG Oxyhemoglobin 88.5 L ABG Sodium ABG Potassium ABG Chloride ABG Glucose 132 H Oxyhemoglobin Carboxyhemoglobin 0.2 L Sodium Potassium Chloride Carbon Dioxide BUN Creatinine Glucose POC Glucose 119 H Hemoglobin A1c Calcium Phosphorus Magnesium AST ALT Alkaline Phosphatase Lactate Dehydrogenase C-Reactive Protein Total Protein Albumin Triglycerides Arterial Blood Glucose 132 H Arterial Blood Ionized Calcium Urine WBC (Auto) U Epithel Cells (Auto) Urine Creatinine Random Vancomycin Coronavirus (PCR) Crossmatch 03/27/21 03/27/21 03/27/21 08:20 11:39 17:32 WBC RBC Hgb Hct MCH MCHC RDW Plt Count Lymph % (Auto) [place] # (Auto) Eos # (Auto) Seg Neutrophils % Lymphocytes % (Manual) Eosinophils % (Manual) Basophils % (Manual) Nucleated RBC % Seg Neutrophils # Seg Neutrophils # Man Lymphocytes # (Manual) Monocytes # (Manual) Eosinophils # (Manual) Basophils # (Manual) Percent Retic PT INR Fibrinogen D-Dimer ABG pH POC ABG pCO2 POC ABG pO2 ABG pO2 ABG HCO3 ABG O2 Saturation ABG Base Excess ABG Hemoglobin ABG Oxyhemoglobin ABG Sodium ABG Potassium ABG Chloride ABG Glucose Oxyhemoglobin Carboxyhemoglobin Sodium Potassium Chloride Carbon Dioxide BUN 57 H Creatinine 6.8 H Glucose 131 H POC Glucose 121 H 126 H Hemoglobin A1c Calcium Phosphorus Magnesium AST ALT Alkaline Phosphatase Lactate Dehydrogenase C-Reactive Protein Total Protein Albumin Triglycerides Arterial Blood Glucose Arterial Blood Ionized Calcium Urine WBC (Auto) U Epithel Cells (Auto) Urine Creatinine Random Vancomycin Coronavirus (PCR) Crossmatch 03/28/21 03/28/21 03/28/21 00:10 04:45 05:25 WBC RBC Hgb Hct MCH MCHC RDW Plt Count Lymph % (Auto) [place] # (Auto) Eos # (Auto) Seg Neutrophils % Lymphocytes % (Manual) Eosinophils % (Manual) Basophils % (Manual) Nucleated RBC % Seg Neutrophils # Seg Neutrophils # Man Lymphocytes # (Manual) Monocytes # (Manual) Eosinophils # (Manual) Basophils # (Manual) Percent Retic PT INR Fibrinogen D-Dimer ABG pH POC ABG pCO2 POC ABG pO2 ABG pO2 57.6 L ABG HCO3 27.1 H ABG O2 Saturation 88.5 L ABG Base Excess ABG Hemoglobin ABG Oxyhemoglobin ABG Sodium ABG Potassium ABG Chloride ABG Glucose Oxyhemoglobin 86.6 L Carboxyhemoglobin Sodium Potassium Chloride Carbon Dioxide BUN Creatinine Glucose POC Glucose 113 H 121 H Hemoglobin A1c Calcium Phosphorus Magnesium AST ALT Alkaline Phosphatase Lactate Dehydrogenase C-Reactive Protein Total Protein Albumin Triglycerides Arterial Blood Glucose Arterial Blood Ionized Calcium Urine WBC (Auto) U Epithel Cells (Auto) Urine Creatinine Random Vancomycin Coronavirus (PCR) Crossmatch 03/28/21 03/28/21 03/28/21 09:37 09:37 11:48 WBC 16.3 H RBC 2.92 L Hgb 8.2 L Hct 24.8 L MCH MCHC RDW 17.5 H Plt Count Lymph % (Auto) 10.7 L [place] # (Auto) 0.9 H Eos # (Auto) 0.6 H Seg Neutrophils % 80.0 H Lymphocytes % (Manual) Eosinophils % (Manual) Basophils % (Manual) Nucleated RBC % Seg Neutrophils # 13.0 H Seg Neutrophils # Man Lymphocytes # (Manual) Monocytes # (Manual) Eosinophils # (Manual) Basophils # (Manual) Percent Retic PT INR Fibrinogen D-Dimer ABG pH POC ABG pCO2 POC ABG pO2 ABG pO2 ABG HCO3 ABG O2 Saturation ABG Base Excess ABG Hemoglobin ABG Oxyhemoglobin ABG Sodium ABG Potassium ABG Chloride ABG Glucose Oxyhemoglobin Carboxyhemoglobin Sodium Potassium Chloride Carbon Dioxide BUN 61 H Creatinine 7.7 H Glucose 148 H POC Glucose 123 H Hemoglobin A1c Calcium Phosphorus Magnesium AST ALT Alkaline Phosphatase Lactate Dehydrogenase C-Reactive Protein Total Protein Albumin Triglycerides Arterial Blood Glucose Arterial Blood Ionized Calcium Urine WBC (Auto) U Epithel Cells (Auto) Urine Creatinine Random Vancomycin Coronavirus (PCR) Crossmatch 03/28/21 03/28/21 03/28/21 17:33 21:08 23:38 WBC RBC Hgb Hct MCH MCHC RDW Plt Count Lymph % (Auto) [place] # (Auto) Eos # (Auto) Seg Neutrophils % Lymphocytes % (Manual) Eosinophils % (Manual) Basophils % (Manual) Nucleated RBC % Seg Neutrophils # Seg Neutrophils # Man Lymphocytes # (Manual) Monocytes # (Manual) Eosinophils # (Manual) Basophils # (Manual) Percent Retic PT INR Fibrinogen D-Dimer ABG pH POC ABG pCO2 POC ABG pO2 80.5 L ABG pO2 ABG HCO3 ABG O2 Saturation ABG Base Excess ABG Hemoglobin 9.5 L ABG Oxyhemoglobin ABG Sodium 133.3 L ABG Potassium ABG Chloride ABG Glucose 134 H Oxyhemoglobin Carboxyhemoglobin 0.3 L Sodium Potassium Chloride Carbon Dioxide BUN Creatinine Glucose POC Glucose 128 H 112 H Hemoglobin A1c Calcium Phosphorus Magnesium AST ALT Alkaline Phosphatase Lactate Dehydrogenase C-Reactive Protein Total Protein Albumin Triglycerides Arterial Blood Glucose 134 H Arterial Blood Ionized Calcium Urine WBC (Auto) U Epithel Cells (Auto) Urine Creatinine Random Vancomycin Coronavirus (PCR) Crossmatch 03/29/21 03/29/21 03/29/21 04:45 04:45 04:45 WBC 17.5 H RBC 3.15 L Hgb 8.8 L Hct 27.2 L MCH MCHC RDW 17.9 H Plt Count 132 L Lymph % (Auto) [place] # (Auto) Eos # (Auto) Seg Neutrophils % Lymphocytes % (Manual) Eosinophils % (Manual) Basophils % (Manual) Nucleated RBC % Seg Neutrophils # Seg Neutrophils # Man Lymphocytes # (Manual) Monocytes # (Manual) Eosinophils # (Manual) Basophils # (Manual) Percent Retic PT INR Fibrinogen D-Dimer ABG pH POC ABG pCO2 POC ABG pO2 ABG pO2 ABG HCO3 ABG O2 Saturation ABG Base Excess ABG Hemoglobin ABG Oxyhemoglobin ABG Sodium ABG Potassium ABG Chloride ABG Glucose Oxyhemoglobin Carboxyhemoglobin Sodium Potassium Chloride 97.7 L Carbon Dioxide 21 L BUN 78 H Creatinine 9.5 H Glucose 132 H POC Glucose Hemoglobin A1c Calcium Phosphorus Magnesium AST ALT Alkaline Phosphatase Lactate Dehydrogenase C-Reactive Protein Total Protein Albumin 2.2 L Triglycerides 385 H Arterial Blood Glucose Arterial Blood Ionized Calcium Urine WBC (Auto) U Epithel Cells (Auto) Urine Creatinine Random Vancomycin Coronavirus (PCR) Crossmatch 03/29/21 03/29/21 03/29/21 11:35 16:50 21:06 WBC RBC Hgb Hct MCH MCHC RDW Plt Count Lymph % (Auto) [place] # (Auto) Eos # (Auto) Seg Neutrophils % Lymphocytes % (Manual) Eosinophils % (Manual) Basophils % (Manual) Nucleated RBC % Seg Neutrophils # Seg Neutrophils # Man Lymphocytes # (Manual) Monocytes # (Manual) Eosinophils # (Manual) Basophils # (Manual) Percent Retic PT INR Fibrinogen D-Dimer ABG pH POC ABG pCO2 POC ABG pO2 ABG pO2 64.9 L ABG HCO3 ABG O2 Saturation ABG Base Excess -5.2 L ABG Hemoglobin ABG Oxyhemoglobin ABG Sodium ABG Potassium ABG Chloride ABG Glucose Oxyhemoglobin 85.1 L Carboxyhemoglobin Sodium Potassium Chloride Carbon Dioxide BUN Creatinine Glucose POC Glucose 148 H 133 H Hemoglobin A1c Calcium Phosphorus Magnesium AST ALT Alkaline Phosphatase Lactate Dehydrogenase C-Reactive Protein Total Protein Albumin Triglycerides Arterial Blood Glucose Arterial Blood Ionized Calcium Urine WBC (Auto) U Epithel Cells (Auto) Urine Creatinine Random Vancomycin Coronavirus (PCR) Crossmatch 03/29/21 03/30/21 03/30/21 Unknown 00:13 04:00 WBC 15.7 H RBC 3.18 L Hgb 8.6 L Hct 27.3 L MCH 27 L MCHC RDW 18.0 H Plt Count 86 L Lymph % (Auto) [place] # (Auto) Eos # (Auto) Seg Neutrophils % Lymphocytes % (Manual) Eosinophils % (Manual) Basophils % (Manual) Nucleated RBC % Seg Neutrophils # Seg Neutrophils # Man Lymphocytes # (Manual) Monocytes # (Manual) Eosinophils # (Manual) Basophils # (Manual) Percent Retic PT INR Fibrinogen D-Dimer ABG pH 7.258 L POC ABG pCO2 POC ABG pO2 ABG pO2 ABG HCO3 ABG O2 Saturation ABG Base Excess -4.9 L ABG Hemoglobin 8.8 L ABG Oxyhemoglobin ABG Sodium ABG Potassium ABG Chloride ABG Glucose Oxyhemoglobin 93.9 L Carboxyhemoglobin Sodium Potassium Chloride Carbon Dioxide BUN Creatinine Glucose POC Glucose 129 H Hemoglobin A1c Calcium Phosphorus Magnesium AST ALT Alkaline Phosphatase Lactate Dehydrogenase C-Reactive Protein Total Protein Albumin Triglycerides Arterial Blood Glucose Arterial Blood Ionized Calcium Urine WBC (Auto) U Epithel Cells (Auto) Urine Creatinine Random Vancomycin Coronavirus (PCR) Crossmatch 03/30/21 03/30/21 03/30/21 04:00 04:00 06:02 WBC RBC Hgb Hct MCH MCHC RDW Plt Count Lymph % (Auto) [place] # (Auto) Eos # (Auto) Seg Neutrophils % Lymphocytes % (Manual) Eosinophils % (Manual) Basophils % (Manual) Nucleated RBC % Seg Neutrophils # Seg Neutrophils # Man Lymphocytes # (Manual) Monocytes # (Manual) Eosinophils # (Manual) Basophils # (Manual) Percent Retic PT INR Fibrinogen D-Dimer 2607.12 H ABG pH POC ABG pCO2 POC ABG pO2 ABG pO2 ABG HCO3 ABG O2 Saturation ABG Base Excess ABG Hemoglobin ABG Oxyhemoglobin ABG Sodium ABG Potassium ABG Chloride ABG Glucose Oxyhemoglobin Carboxyhemoglobin Sodium 133 L Potassium 5.2 H D Chloride 91.5 L Carbon Dioxide 18 L BUN 101 H Creatinine 10.6 H Glucose 149 H POC Glucose 130 H Hemoglobin A1c Calcium Phosphorus 10.30 H Magnesium AST ALT Alkaline Phosphatase Lactate Dehydrogenase C-Reactive Protein 21.50 H Total Protein Albumin Triglycerides Arterial Blood Glucose Arterial Blood Ionized Calcium Urine WBC (Auto) U Epithel Cells (Auto) Urine Creatinine Random Vancomycin Coronavirus (PCR) Crossmatch 03/30/21 03/30/21 03/30/21 10:36 11:48 17:20 WBC RBC Hgb Hct MCH MCHC RDW Plt Count Lymph % (Auto) [place] # (Auto) Eos # (Auto) Seg Neutrophils % Lymphocytes % (Manual) Eosinophils % (Manual) Basophils % (Manual) Nucleated RBC % Seg Neutrophils # Seg Neutrophils # Man Lymphocytes # (Manual) Monocytes # (Manual) Eosinophils # (Manual) Basophils # (Manual) Percent Retic PT INR Fibrinogen D-Dimer ABG pH 7.224 L POC ABG pCO2 49.1 H POC ABG pO2 61.5 L ABG pO2 ABG HCO3 ABG O2 Saturation ABG Base Excess ABG Hemoglobin 10.2 L ABG Oxyhemoglobin 86.2 L ABG Sodium 129.6 L ABG Potassium 5.4 H ABG Chloride 96.0 L ABG Glucose 161 H Oxyhemoglobin Carboxyhemoglobin Sodium Potassium Chloride Carbon Dioxide BUN Creatinine Glucose POC Glucose 163 H 130 H Hemoglobin A1c Calcium Phosphorus Magnesium AST ALT Alkaline Phosphatase Lactate Dehydrogenase C-Reactive Protein Total Protein Albumin Triglycerides Arterial Blood Glucose 161 H Arterial Blood Ionized Calcium 4.4 L Urine WBC (Auto) U Epithel Cells (Auto) Urine Creatinine Random Vancomycin Coronavirus (PCR) Crossmatch 03/30/21 03/31/21 03/31/21 23:49 00:28 05:20 WBC 17.3 H RBC 2.99 L Hgb 8.2 L Hct 25.3 L MCH 27 L MCHC RDW 18.3 H Plt Count 126 L Lymph % (Auto) [place] # (Auto) Eos # (Auto) Seg Neutrophils % Lymphocytes % (Manual) Eosinophils % (Manual) Basophils % (Manual) Nucleated RBC % Seg Neutrophils # Seg Neutrophils # Man Lymphocytes # (Manual) Monocytes # (Manual) Eosinophils # (Manual) Basophils # (Manual) Percent Retic PT INR Fibrinogen D-Dimer ABG pH 7.249 L POC ABG pCO2 POC ABG pO2 77.7 L ABG pO2 ABG HCO3 ABG O2 Saturation ABG Base Excess ABG Hemoglobin 9.0 L ABG Oxyhemoglobin 92.9 L ABG Sodium 130.4 L ABG Potassium 4.7 H ABG Chloride ABG Glucose 166 H Oxyhemoglobin Carboxyhemoglobin 0.4 L Sodium Potassium Chloride Carbon Dioxide BUN Creatinine Glucose POC Glucose 143 H Hemoglobin A1c Calcium Phosphorus Magnesium AST ALT Alkaline Phosphatase Lactate Dehydrogenase C-Reactive Protein Total Protein Albumin Triglycerides Arterial Blood Glucose 166 H Arterial Blood Ionized Calcium 4.3 L Urine WBC (Auto) U Epithel Cells (Auto) Urine Creatinine Random Vancomycin Coronavirus (PCR) Crossmatch 03/31/21 03/31/21 03/31/21 05:20 06:18 09:44 WBC RBC Hgb Hct MCH MCHC RDW Plt Count Lymph % (Auto) [place] # (Auto) Eos # (Auto) Seg Neutrophils % Lymphocytes % (Manual) Eosinophils % (Manual) Basophils % (Manual) Nucleated RBC % Seg Neutrophils # Seg Neutrophils # Man Lymphocytes # (Manual) Monocytes # (Manual) Eosinophils # (Manual) Basophils # (Manual) Percent Retic PT INR Fibrinogen D-Dimer ABG pH 7.247 L POC ABG pCO2 POC ABG pO2 ABG pO2 ABG HCO3 ABG O2 Saturation 94.4 L ABG Base Excess -5.1 L ABG Hemoglobin 8.2 L ABG Oxyhemoglobin ABG Sodium ABG Potassium ABG Chloride ABG Glucose Oxyhemoglobin 92.4 L Carboxyhemoglobin Sodium Potassium Chloride Carbon Dioxide BUN Creatinine Glucose POC Glucose 155 H Hemoglobin A1c Calcium Phosphorus 8.20 H D Magnesium AST ALT Alkaline Phosphatase Lactate Dehydrogenase C-Reactive Protein Total Protein Albumin Triglycerides Arterial Blood Glucose Arterial Blood Ionized Calcium Urine WBC (Auto) U Epithel Cells (Auto) Urine Creatinine Random Vancomycin Coronavirus (PCR) Crossmatch 03/31/21 03/31/21 03/31/21 09:49 09:55 09:55 WBC RBC Hgb Hct MCH MCHC RDW Plt Count Lymph % (Auto) [place] # (Auto) Eos # (Auto) Seg Neutrophils % Lymphocytes % (Manual) Eosinophils % (Manual) Basophils % (Manual) Nucleated RBC % Seg Neutrophils # Seg Neutrophils # Man Lymphocytes # (Manual) Monocytes # (Manual) Eosinophils # (Manual) Basophils # (Manual) Percent Retic 4.52 H PT 16.5 H INR 1.20 H Fibrinogen D-Dimer ABG pH POC ABG pCO2 POC ABG pO2 ABG pO2 ABG HCO3 ABG O2 Saturation ABG Base Excess ABG Hemoglobin ABG Oxyhemoglobin ABG Sodium ABG Potassium ABG Chloride ABG Glucose Oxyhemoglobin Carboxyhemoglobin Sodium 133 L Potassium Chloride 92.8 L Carbon Dioxide 20 L BUN 87 H Creatinine 8.9 H Glucose 177 H POC Glucose Hemoglobin A1c Calcium 8.2 L Phosphorus Magnesium AST 169 H ALT Alkaline Phosphatase 187 H Lactate Dehydrogenase C-Reactive Protein Total Protein Albumin 2.3 L Triglycerides Arterial Blood Glucose Arterial Blood Ionized Calcium Urine WBC (Auto) U Epithel Cells (Auto) Urine Creatinine Random Vancomycin Coronavirus (PCR) Crossmatch 03/31/21 03/31/21 03/31/21 09:55 09:55 11:25 WBC RBC Hgb Hct MCH MCHC RDW Plt Count Lymph % (Auto) [place] # (Auto) Eos # (Auto) Seg Neutrophils % Lymphocytes % (Manual) Eosinophils % (Manual) Basophils % (Manual) Nucleated RBC % Seg Neutrophils # Seg Neutrophils # Man Lymphocytes # (Manual) Monocytes # (Manual) Eosinophils # (Manual) Basophils # (Manual) Percent Retic PT INR Fibrinogen 491 H D-Dimer ABG pH POC ABG pCO2 POC ABG pO2 ABG pO2 ABG HCO3 ABG O2 Saturation ABG Base Excess ABG Hemoglobin ABG Oxyhemoglobin ABG Sodium ABG Potassium ABG Chloride ABG Glucose Oxyhemoglobin Carboxyhemoglobin Sodium Potassium Chloride Carbon Dioxide BUN Creatinine Glucose POC Glucose 178 H Hemoglobin A1c Calcium Phosphorus Magnesium AST ALT Alkaline Phosphatase Lactate Dehydrogenase 509 H C-Reactive Protein Total Protein Albumin Triglycerides Arterial Blood Glucose Arterial Blood Ionized Calcium Urine WBC (Auto) U Epithel Cells (Auto) Urine Creatinine Random Vancomycin Coronavirus (PCR) Crossmatch 03/31/21 03/31/21 03/31/21 12:30 17:40 21:00 WBC RBC Hgb Hct MCH MCHC RDW Plt Count Lymph % (Auto) [place] # (Auto) Eos # (Auto) Seg Neutrophils % Lymphocytes % (Manual) Eosinophils % (Manual) Basophils % (Manual) Nucleated RBC % Seg Neutrophils # Seg Neutrophils # Man Lymphocytes # (Manual) Monocytes # (Manual) Eosinophils # (Manual) Basophils # (Manual) Percent Retic PT INR Fibrinogen D-Dimer ABG pH 7.235 L 7.216 L POC ABG pCO2 POC ABG pO2 ABG pO2 76.8 L 113.9 H ABG HCO3 ABG O2 Saturation 93.2 L ABG Base Excess -5.3 L -7.3 L ABG Hemoglobin 6.3 L 8.0 L ABG Oxyhemoglobin ABG Sodium ABG Potassium ABG Chloride ABG Glucose Oxyhemoglobin 91.1 L Carboxyhemoglobin Sodium Potassium Chloride Carbon Dioxide BUN Creatinine Glucose POC Glucose 245 H Hemoglobin A1c Calcium Phosphorus Magnesium AST ALT Alkaline Phosphatase Lactate Dehydrogenase C-Reactive Protein Total Protein Albumin Triglycerides Arterial Blood Glucose Arterial Blood Ionized Calcium Urine WBC (Auto) U Epithel Cells (Auto) Urine Creatinine Random Vancomycin Coronavirus (PCR) Crossmatch 04/01/21 04/01/21 04/01/21 00:11 05:09 08:25 WBC RBC Hgb Hct MCH MCHC RDW Plt Count Lymph % (Auto) [place] # (Auto) Eos # (Auto) Seg Neutrophils % Lymphocytes % (Manual) Eosinophils % (Manual) Basophils % (Manual) Nucleated RBC % Seg Neutrophils # Seg Neutrophils # Man Lymphocytes # (Manual) Monocytes # (Manual) Eosinophils # (Manual) Basophils # (Manual) Percent Retic PT INR Fibrinogen D-Dimer ABG pH 7.225 L POC ABG pCO2 POC ABG pO2 ABG pO2 76.4 L ABG HCO3 ABG O2 Saturation 92.2 L ABG Base Excess -7.6 L ABG Hemoglobin 7.3 L ABG Oxyhemoglobin ABG Sodium ABG Potassium ABG Chloride ABG Glucose Oxyhemoglobin 90.2 L Carboxyhemoglobin Sodium Potassium Chloride Carbon Dioxide BUN Creatinine Glucose POC Glucose 209 H 173 H Hemoglobin A1c Calcium Phosphorus Magnesium AST ALT Alkaline Phosphatase Lactate Dehydrogenase C-Reactive Protein Total Protein Albumin Triglycerides Arterial Blood Glucose Arterial Blood Ionized Calcium Urine WBC (Auto) U Epithel Cells (Auto) Urine Creatinine Random Vancomycin Coronavirus (PCR) Crossmatch 04/01/21 04/01/21 04/01/21 12:01 12:05 17:55 WBC RBC Hgb Hct MCH MCHC RDW Plt Count Lymph % (Auto) [place] # (Auto) Eos # (Auto) Seg Neutrophils % Lymphocytes % (Manual) Eosinophils % (Manual) Basophils % (Manual) Nucleated RBC % Seg Neutrophils # Seg Neutrophils # Man Lymphocytes # (Manual) Monocytes # (Manual) Eosinophils # (Manual) Basophils # (Manual) Percent Retic PT INR Fibrinogen D-Dimer ABG pH POC ABG pCO2 POC ABG pO2 ABG pO2 ABG HCO3 ABG O2 Saturation ABG Base Excess ABG Hemoglobin ABG Oxyhemoglobin ABG Sodium ABG Potassium ABG Chloride ABG Glucose Oxyhemoglobin Carboxyhemoglobin Sodium Potassium 5.9 H Chloride Carbon Dioxide BUN Creatinine Glucose POC Glucose 202 H 217 H Hemoglobin A1c Calcium Phosphorus Magnesium AST ALT Alkaline Phosphatase Lactate Dehydrogenase C-Reactive Protein Total Protein Albumin Triglycerides Arterial Blood Glucose Arterial Blood Ionized Calcium Urine WBC (Auto) U Epithel Cells (Auto) Urine Creatinine Random Vancomycin Coronavirus (PCR) Crossmatch 04/01/21 04/01/21 04/01/21 Unknown Unknown 23:59 WBC 27.2 H RBC 3.08 L Hgb 8.4 L Hct 26.0 L MCH 27 L MCHC RDW 18.5 H Plt Count Lymph % (Auto) [place] # (Auto) Eos # (Auto) Seg Neutrophils % Lymphocytes % (Manual) Eosinophils % (Manual) Basophils % (Manual) Nucleated RBC % Seg Neutrophils # Seg Neutrophils # Man Lymphocytes # (Manual) Monocytes # (Manual) Eosinophils # (Manual) Basophils # (Manual) Percent Retic PT INR Fibrinogen D-Dimer ABG pH POC ABG pCO2 POC ABG pO2 ABG pO2 ABG HCO3 ABG O2 Saturation ABG Base Excess ABG Hemoglobin ABG Oxyhemoglobin ABG Sodium ABG Potassium ABG Chloride ABG Glucose Oxyhemoglobin Carboxyhemoglobin Sodium 132 L Potassium 6.6 H* D Chloride 91.3 L Carbon Dioxide 17 L BUN 104 H Creatinine 9.3 H Glucose 199 H POC Glucose 172 H Hemoglobin A1c Calcium 8.3 L Phosphorus Magnesium AST 236 H ALT 93 H Alkaline Phosphatase 191 H Lactate Dehydrogenase C-Reactive Protein Total Protein Albumin 2.4 L Triglycerides Arterial Blood Glucose Arterial Blood Ionized Calcium Urine WBC (Auto) U Epithel Cells (Auto) Urine Creatinine Random Vancomycin Coronavirus (PCR) Crossmatch 04/02/21 04/02/21 04/02/21 04:00 04:00 05:00 WBC 31.0 H RBC 2.93 L Hgb 8.0 L Hct 24.7 L MCH 27 L MCHC RDW 19.2 H Plt Count 131 L Lymph % (Auto) [place] # (Auto) Eos # (Auto) Seg Neutrophils % Lymphocytes % (Manual) Eosinophils % (Manual) Basophils % (Manual) Nucleated RBC % Seg Neutrophils # Seg Neutrophils # Man Lymphocytes # (Manual) Monocytes # (Manual) Eosinophils # (Manual) Basophils # (Manual) Percent Retic PT 16.0 H INR 1.16 H Fibrinogen D-Dimer ABG pH POC ABG pCO2 POC ABG pO2 ABG pO2 ABG HCO3 ABG O2 Saturation ABG Base Excess ABG Hemoglobin ABG Oxyhemoglobin ABG Sodium ABG Potassium ABG Chloride ABG Glucose Oxyhemoglobin Carboxyhemoglobin Sodium 135 L Potassium 5.3 H Chloride 96.1 L Carbon Dioxide 18 L BUN 80 H Creatinine 6.8 H Glucose 174 H POC Glucose Hemoglobin A1c Calcium 7.7 L Phosphorus Magnesium AST 106 H ALT 60 H Alkaline Phosphatase Lactate Dehydrogenase C-Reactive Protein Total Protein 5.9 L Albumin 3.5 L Triglycerides 579 H Arterial Blood Glucose Arterial Blood Ionized Calcium Urine WBC (Auto) U Epithel Cells (Auto) Urine Creatinine Random Vancomycin Coronavirus (PCR) Crossmatch 04/02/21 04/02/21 04/02/21 05:09 08:55 11:06 WBC RBC Hgb Hct MCH MCHC RDW Plt Count Lymph % (Auto) [place] # (Auto) Eos # (Auto) Seg Neutrophils % Lymphocytes % (Manual) Eosinophils % (Manual) Basophils % (Manual) Nucleated RBC % Seg Neutrophils # Seg Neutrophils # Man Lymphocytes # (Manual) Monocytes # (Manual) Eosinophils # (Manual) Basophils # (Manual) Percent Retic PT INR Fibrinogen D-Dimer ABG pH 7.188 L POC ABG pCO2 58.3 H POC ABG pO2 132.8 H ABG pO2 ABG HCO3 ABG O2 Saturation ABG Base Excess ABG Hemoglobin 8.4 L ABG Oxyhemoglobin ABG Sodium ABG Potassium 5.0 H ABG Chloride 97.0 L ABG Glucose 156 H Oxyhemoglobin Carboxyhemoglobin 0.4 L Sodium Potassium Chloride Carbon Dioxide BUN Creatinine Glucose POC Glucose 148 H 167 H Hemoglobin A1c Calcium Phosphorus Magnesium AST ALT Alkaline Phosphatase Lactate Dehydrogenase C-Reactive Protein Total Protein Albumin Triglycerides Arterial Blood Glucose 156 H Arterial Blood Ionized Calcium 4.2 L Urine WBC (Auto) U Epithel Cells (Auto) Urine Creatinine Random Vancomycin Coronavirus (PCR) Crossmatch 04/02/21 04/02/21 04/03/21 17:57 20:40 00:28 WBC RBC Hgb Hct MCH MCHC RDW Plt Count Lymph % (Auto) [place] # (Auto) Eos # (Auto) Seg Neutrophils % Lymphocytes % (Manual) Eosinophils % (Manual) Basophils % (Manual) Nucleated RBC % Seg Neutrophils # Seg Neutrophils # Man Lymphocytes # (Manual) Monocytes # (Manual) Eosinophils # (Manual) Basophils # (Manual) Percent Retic PT INR Fibrinogen D-Dimer ABG pH POC ABG pCO2 POC ABG pO2 ABG pO2 111.9 H ABG HCO3 18.9 L ABG O2 Saturation ABG Base Excess -9.9 L ABG Hemoglobin ABG Oxyhemoglobin ABG Sodium ABG Potassium ABG Chloride ABG Glucose Oxyhemoglobin Carboxyhemoglobin Sodium Potassium Chloride Carbon Dioxide BUN Creatinine Glucose POC Glucose 205 H 217 H Hemoglobin A1c Calcium Phosphorus Magnesium AST ALT Alkaline Phosphatase Lactate Dehydrogenase C-Reactive Protein Total Protein Albumin Triglycerides Arterial Blood Glucose Arterial Blood Ionized Calcium Urine WBC (Auto) U Epithel Cells (Auto) Urine Creatinine Random Vancomycin Coronavirus (PCR) Crossmatch 04/03/21 04/03/21 04/03/21 03:39 04:30 04:30 WBC 31.1 H RBC 2.78 L Hgb 8.0 L Hct 24.0 L MCH MCHC RDW 19.0 H Plt Count Lymph % (Auto) [place] # (Auto) Eos # (Auto) Seg Neutrophils % Lymphocytes % (Manual) Eosinophils % (Manual) 27.0 H Basophils % (Manual) 2.0 H Nucleated RBC % Seg Neutrophils # Seg Neutrophils # Man 13.7 H Lymphocytes # (Manual) 8.4 H Monocytes # (Manual) Eosinophils # (Manual) 8.4 H Basophils # (Manual) 0.6 H Percent Retic PT INR Fibrinogen D-Dimer ABG pH POC ABG pCO2 POC ABG pO2 ABG pO2 ABG HCO3 ABG O2 Saturation ABG Base Excess ABG Hemoglobin ABG Oxyhemoglobin ABG Sodium ABG Potassium ABG Chloride ABG Glucose Oxyhemoglobin Carboxyhemoglobin Sodium 132 L Potassium 5.8 H Chloride 94.5 L Carbon Dioxide 16 L BUN 97 H Creatinine 7.7 H Glucose 230 H POC Glucose 201 H Hemoglobin A1c Calcium 7.6 L Phosphorus Magnesium AST 47 H ALT Alkaline Phosphatase 146 H Lactate Dehydrogenase C-Reactive Protein Total Protein 5.2 L Albumin 3.4 L Triglycerides Arterial Blood Glucose Arterial Blood Ionized Calcium Urine WBC (Auto) U Epithel Cells (Auto) Urine Creatinine Random Vancomycin Coronavirus (PCR) Crossmatch 04/03/21 04/03/21 04/03/21 04:30 08:31 11:29 WBC RBC Hgb Hct MCH MCHC RDW Plt Count Lymph % (Auto) [place] # (Auto) Eos # (Auto) Seg Neutrophils % Lymphocytes % (Manual) Eosinophils % (Manual) Basophils % (Manual) Nucleated RBC % Seg Neutrophils # Seg Neutrophils # Man Lymphocytes # (Manual) Monocytes # (Manual) Eosinophils # (Manual) Basophils # (Manual) Percent Retic PT INR Fibrinogen D-Dimer ABG pH 7.195 L* POC ABG pCO2 POC ABG pO2 ABG pO2 102.6 H ABG HCO3 ABG O2 Saturation ABG Base Excess -7.2 L ABG Hemoglobin 8.0 L ABG Oxyhemoglobin ABG Sodium ABG Potassium ABG Chloride ABG Glucose Oxyhemoglobin 94.7 L Carboxyhemoglobin Sodium Potassium Chloride Carbon Dioxide BUN Creatinine Glucose POC Glucose 230 H Hemoglobin A1c Calcium Phosphorus 10.30 H Magnesium AST ALT Alkaline Phosphatase Lactate Dehydrogenase C-Reactive Protein Total Protein Albumin Triglycerides Arterial Blood Glucose Arterial Blood Ionized Calcium Urine WBC (Auto) U Epithel Cells (Auto) Urine Creatinine Random Vancomycin Coronavirus (PCR) Crossmatch 04/03/21 04/03/21 04/04/21 16:53 20:45 05:00 WBC 28.8 H RBC 2.64 L Hgb 8.7 L Hct 22.2 L MCH 33 H MCHC 39 H* RDW 18.6 H Plt Count Lymph % (Auto) [place] # (Auto) Eos # (Auto) Seg Neutrophils % Lymphocytes % (Manual) Eosinophils % (Manual) Basophils % (Manual) Nucleated RBC % Seg Neutrophils # Seg Neutrophils # Man Lymphocytes # (Manual) Monocytes # (Manual) Eosinophils # (Manual) Basophils # (Manual) Percent Retic PT INR Fibrinogen D-Dimer ABG pH POC ABG pCO2 POC ABG pO2 ABG pO2 ABG HCO3 ABG O2 Saturation ABG Base Excess ABG Hemoglobin ABG Oxyhemoglobin ABG Sodium ABG Potassium ABG Chloride ABG Glucose Oxyhemoglobin 94.8 L Carboxyhemoglobin Sodium Potassium Chloride Carbon Dioxide BUN Creatinine Glucose POC Glucose 227 H Hemoglobin A1c Calcium Phosphorus Magnesium AST ALT Alkaline Phosphatase Lactate Dehydrogenase C-Reactive Protein Total Protein Albumin Triglycerides Arterial Blood Glucose Arterial Blood Ionized Calcium Urine WBC (Auto) U Epithel Cells (Auto) Urine Creatinine Random Vancomycin Coronavirus (PCR) Crossmatch 04/04/21 04/04/21 04/04/21 05:29 07:55 09:20 WBC RBC Hgb Hct MCH MCHC RDW Plt Count Lymph % (Auto) [place] # (Auto) Eos # (Auto) Seg Neutrophils % Lymphocytes % (Manual) Eosinophils % (Manual) Basophils % (Manual) Nucleated RBC % Seg Neutrophils # Seg Neutrophils # Man Lymphocytes # (Manual) Monocytes # (Manual) Eosinophils # (Manual) Basophils # (Manual) Percent Retic PT INR Fibrinogen D-Dimer ABG pH POC ABG pCO2 POC ABG pO2 ABG pO2 ABG HCO3 ABG O2 Saturation ABG Base Excess ABG Hemoglobin ABG Oxyhemoglobin ABG Sodium ABG Potassium ABG Chloride ABG Glucose Oxyhemoglobin Carboxyhemoglobin Sodium 133 L Potassium Chloride 91.0 L Carbon Dioxide 20 L BUN 75 H Creatinine 4.7 H Glucose 184 H POC Glucose 133 H Hemoglobin A1c Calcium 7.3 L Phosphorus Magnesium AST < 5 L ALT < 5 L Alkaline Phosphatase 200 H Lactate Dehydrogenase C-Reactive Protein Total Protein 5.6 L Albumin 2.9 L Triglycerides Arterial Blood Glucose Arterial Blood Ionized Calcium Urine WBC (Auto) U Epithel Cells (Auto) Urine Creatinine Random Vancomycin Coronavirus (PCR) Crossmatch See Detail 04/04/21 04/04/21 04/04/21 12:01 14:06 17:05 WBC RBC Hgb Hct MCH MCHC RDW Plt Count Lymph % (Auto) [place] # (Auto) Eos # (Auto) Seg Neutrophils % Lymphocytes % (Manual) Eosinophils % (Manual) Basophils % (Manual) Nucleated RBC % Seg Neutrophils # Seg Neutrophils # Man Lymphocytes # (Manual) Monocytes # (Manual) Eosinophils # (Manual) Basophils # (Manual) Percent Retic PT INR Fibrinogen D-Dimer ABG pH 7.162 L* POC ABG pCO2 POC ABG pO2 ABG pO2 91.3 H ABG HCO3 ABG O2 Saturation 94.8 L ABG Base Excess -4.0 L ABG Hemoglobin 7.6 L ABG Oxyhemoglobin ABG Sodium ABG Potassium ABG Chloride ABG Glucose Oxyhemoglobin 92.4 L Carboxyhemoglobin Sodium Potassium Chloride Carbon Dioxide BUN Creatinine Glucose POC Glucose 199 H 166 H Hemoglobin A1c Calcium Phosphorus Magnesium AST ALT Alkaline Phosphatase Lactate Dehydrogenase C-Reactive Protein Total Protein Albumin Triglycerides Arterial Blood Glucose Arterial Blood Ionized Calcium Urine WBC (Auto) U Epithel Cells (Auto) Urine Creatinine Random Vancomycin Coronavirus (PCR) Crossmatch 04/04/21 04/04/21 04/05/21 21:14 23:30 05:20 WBC RBC Hgb Hct MCH MCHC RDW Plt Count Lymph % (Auto) [place] # (Auto) Eos # (Auto) Seg Neutrophils % Lymphocytes % (Manual) Eosinophils % (Manual) Basophils % (Manual) Nucleated RBC % Seg Neutrophils # Seg Neutrophils # Man Lymphocytes # (Manual) Monocytes # (Manual) Eosinophils # (Manual) Basophils # (Manual) Percent Retic PT INR Fibrinogen D-Dimer ABG pH 7.257 L POC ABG pCO2 POC ABG pO2 ABG pO2 73.8 L ABG HCO3 ABG O2 Saturation 91.6 L ABG Base Excess -2.7 L ABG Hemoglobin 8.6 L ABG Oxyhemoglobin ABG Sodium ABG Potassium ABG Chloride ABG Glucose Oxyhemoglobin 89.1 L Carboxyhemoglobin Sodium 131 L Potassium Chloride 91.2 L Carbon Dioxide 17 L BUN 85 H Creatinine 5.1 H Glucose 183 H POC Glucose 158 H Hemoglobin A1c Calcium 7.4 L Phosphorus Magnesium AST ALT Alkaline Phosphatase 190 H Lactate Dehydrogenase 394 H C-Reactive Protein Total Protein 5.8 L Albumin 2.7 L Triglycerides Arterial Blood Glucose Arterial Blood Ionized Calcium Urine WBC (Auto) U Epithel Cells (Auto) Urine Creatinine Random Vancomycin Coronavirus (PCR) Crossmatch 04/05/21 04/05/21 04/05/21 05:20 05:20 05:24 WBC 30.8 H RBC 2.83 L Hgb 8.4 L Hct 24.4 L MCH MCHC 35 H RDW 18.9 H Plt Count Lymph % (Auto) [place] # (Auto) Eos # (Auto) Seg Neutrophils % Lymphocytes % (Manual) Eosinophils % (Manual) Basophils % (Manual) Nucleated RBC % Seg Neutrophils # Seg Neutrophils # Man Lymphocytes # (Manual) Monocytes # (Manual) Eosinophils # (Manual) Basophils # (Manual) Percent Retic PT INR Fibrinogen D-Dimer ABG pH POC ABG pCO2 POC ABG pO2 ABG pO2 ABG HCO3 ABG O2 Saturation ABG Base Excess ABG Hemoglobin ABG Oxyhemoglobin ABG Sodium ABG Potassium ABG Chloride ABG Glucose Oxyhemoglobin Carboxyhemoglobin Sodium Potassium Chloride Carbon Dioxide BUN Creatinine Glucose POC Glucose 162 H Hemoglobin A1c Calcium Phosphorus 9.40 H Magnesium AST ALT Alkaline Phosphatase Lactate Dehydrogenase C-Reactive Protein Total Protein Albumin Triglycerides Arterial Blood Glucose Arterial Blood Ionized Calcium Urine WBC (Auto) U Epithel Cells (Auto) Urine Creatinine Random Vancomycin Coronavirus (PCR) Crossmatch 04/05/21 04/05/21 04/05/21 11:31 12:23 21:40 WBC RBC Hgb Hct MCH MCHC RDW Plt Count Lymph % (Auto) [place] # (Auto) Eos # (Auto) Seg Neutrophils % Lymphocytes % (Manual) Eosinophils % (Manual) Basophils % (Manual) Nucleated RBC % Seg Neutrophils # Seg Neutrophils # Man Lymphocytes # (Manual) Monocytes # (Manual) Eosinophils # (Manual) Basophils # (Manual) Percent Retic PT INR Fibrinogen D-Dimer ABG pH 7.325 L POC ABG pCO2 POC ABG pO2 ABG pO2 65.6 L ABG HCO3 ABG O2 Saturation 91.2 L ABG Base Excess ABG Hemoglobin 6.7 L ABG Oxyhemoglobin ABG Sodium ABG Potassium ABG Chloride ABG Glucose Oxyhemoglobin 89.0 L Carboxyhemoglobin Sodium Potassium Chloride Carbon Dioxide BUN Creatinine Glucose POC Glucose 196 H 190 H Hemoglobin A1c Calcium Phosphorus Magnesium AST ALT Alkaline Phosphatase Lactate Dehydrogenase C-Reactive Protein Total Protein Albumin Triglycerides Arterial Blood Glucose Arterial Blood Ionized Calcium Urine WBC (Auto) U Epithel Cells (Auto) Urine Creatinine Random Vancomycin Coronavirus (PCR) Crossmatch 04/05/21 04/06/21 04/06/21 23:53 05:35 06:00 WBC RBC Hgb Hct MCH MCHC RDW Plt Count Lymph % (Auto) [place] # (Auto) Eos # (Auto) Seg Neutrophils % Lymphocytes % (Manual) Eosinophils % (Manual) Basophils % (Manual) Nucleated RBC % Seg Neutrophils # Seg Neutrophils # Man Lymphocytes # (Manual) Monocytes # (Manual) Eosinophils # (Manual) Basophils # (Manual) Percent Retic PT INR Fibrinogen D-Dimer ABG pH POC ABG pCO2 POC ABG pO2 ABG pO2 ABG HCO3 ABG O2 Saturation ABG Base Excess ABG Hemoglobin ABG Oxyhemoglobin ABG Sodium ABG Potassium ABG Chloride ABG Glucose Oxyhemoglobin Carboxyhemoglobin Sodium 132 L Potassium Chloride 90.7 L Carbon Dioxide 21 L BUN 74 H Creatinine 4.3 H Glucose 156 H POC Glucose 192 H 139 H Hemoglobin A1c Calcium 7.9 L Phosphorus 6.90 H D Magnesium AST < 5 L ALT < 5 L Alkaline Phosphatase 185 H Lactate Dehydrogenase C-Reactive Protein Total Protein 5.7 L Albumin 2.5 L Triglycerides Arterial Blood Glucose Arterial Blood Ionized Calcium Urine WBC (Auto) U Epithel Cells (Auto) Urine Creatinine Random Vancomycin Coronavirus (PCR) Crossmatch 04/06/21 04/06/21 04/06/21 06:00 11:27 18:01 WBC 26.7 H RBC 2.39 L Hgb 6.9 L Hct 20.1 L MCH MCHC RDW 18.7 H Plt Count Lymph % (Auto) [place] # (Auto) Eos # (Auto) Seg Neutrophils % Lymphocytes % (Manual) Eosinophils % (Manual) Basophils % (Manual) Nucleated RBC % Seg Neutrophils # Seg Neutrophils # Man Lymphocytes # (Manual) Monocytes # (Manual) Eosinophils # (Manual) Basophils # (Manual) Percent Retic PT INR Fibrinogen D-Dimer ABG pH POC ABG pCO2 POC ABG pO2 ABG pO2 ABG HCO3 ABG O2 Saturation ABG Base Excess ABG Hemoglobin ABG Oxyhemoglobin ABG Sodium ABG Potassium ABG Chloride ABG Glucose Oxyhemoglobin Carboxyhemoglobin Sodium Potassium Chloride Carbon Dioxide BUN Creatinine Glucose POC Glucose 166 H 159 H Hemoglobin A1c Calcium Phosphorus Magnesium AST ALT Alkaline Phosphatase Lactate Dehydrogenase C-Reactive Protein Total Protein Albumin Triglycerides Arterial Blood Glucose Arterial Blood Ionized Calcium Urine WBC (Auto) U Epithel Cells (Auto) Urine Creatinine Random Vancomycin Coronavirus (PCR) Crossmatch 04/06/21 04/06/21 04/06/21 20:50 23:43 Unknown WBC RBC Hgb Hct MCH MCHC RDW Plt Count Lymph % (Auto) [place] # (Auto) Eos # (Auto) Seg Neutrophils % Lymphocytes % (Manual) Eosinophils % (Manual) Basophils % (Manual) Nucleated RBC % Seg Neutrophils # Seg Neutrophils # Man Lymphocytes # (Manual) Monocytes # (Manual) Eosinophils # (Manual) Basophils # (Manual) Percent Retic PT INR Fibrinogen D-Dimer ABG pH 7.303 L POC ABG pCO2 POC ABG pO2 67.9 L ABG pO2 ABG HCO3 ABG O2 Saturation ABG Base Excess ABG Hemoglobin 7.6 L ABG Oxyhemoglobin 90.2 L ABG Sodium 128.6 L ABG Potassium ABG Chloride 97.0 L ABG Glucose 154 H Oxyhemoglobin Carboxyhemoglobin Sodium Potassium Chloride Carbon Dioxide BUN Creatinine Glucose POC Glucose 137 H Hemoglobin A1c Calcium Phosphorus Magnesium AST ALT Alkaline Phosphatase Lactate Dehydrogenase C-Reactive Protein Total Protein Albumin Triglycerides Arterial Blood Glucose 154 H Arterial Blood Ionized Calcium Urine WBC (Auto) 148.0 H U Epithel Cells (Auto) 102.0 H Urine Creatinine Random Vancomycin Coronavirus (PCR) Crossmatch 04/07/21 04/07/21 04/07/21 03:50 03:50 03:50 WBC 26.7 H RBC 2.66 L Hgb 7.6 L Hct 23.2 L MCH MCHC RDW 18.5 H Plt Count Lymph % (Auto) [place] # (Auto) Eos # (Auto) Seg Neutrophils % Lymphocytes % (Manual) 10.0 L Eosinophils % (Manual) 19.0 H Basophils % (Manual) Nucleated RBC % 2.0 H Seg Neutrophils # Seg Neutrophils # Man 17.9 H Lymphocytes # (Manual) Monocytes # (Manual) 1.1 H Eosinophils # (Manual) 5.1 H Basophils # (Manual) Percent Retic PT INR Fibrinogen D-Dimer 2178 H ABG pH POC ABG pCO2 POC ABG pO2 ABG pO2 ABG HCO3 ABG O2 Saturation ABG Base Excess ABG Hemoglobin ABG Oxyhemoglobin ABG Sodium ABG Potassium ABG Chloride ABG Glucose Oxyhemoglobin Carboxyhemoglobin Sodium 130 L Potassium Chloride 91.1 L Carbon Dioxide 19 L BUN 92 H Creatinine 4.2 H Glucose 213 H POC Glucose Hemoglobin A1c Calcium 7.8 L Phosphorus Magnesium AST ALT Alkaline Phosphatase Lactate Dehydrogenase C-Reactive Protein Total Protein Albumin Triglycerides Arterial Blood Glucose Arterial Blood Ionized Calcium Urine WBC (Auto) U Epithel Cells (Auto) Urine Creatinine Random Vancomycin Coronavirus (PCR) Crossmatch 04/07/21 04/07/21 04/07/21 04:00 05:42 11:10 WBC RBC Hgb Hct MCH MCHC RDW Plt Count Lymph % (Auto) [place] # (Auto) Eos # (Auto) Seg Neutrophils % Lymphocytes % (Manual) Eosinophils % (Manual) Basophils % (Manual) Nucleated RBC % Seg Neutrophils # Seg Neutrophils # Man Lymphocytes # (Manual) Monocytes # (Manual) Eosinophils # (Manual) Basophils # (Manual) Percent Retic PT INR Fibrinogen D-Dimer ABG pH POC ABG pCO2 POC ABG pO2 ABG pO2 ABG HCO3 ABG O2 Saturation ABG Base Excess ABG Hemoglobin ABG Oxyhemoglobin ABG Sodium ABG Potassium ABG Chloride ABG Glucose Oxyhemoglobin Carboxyhemoglobin Sodium 129 L Potassium 5.1 H Chloride 89.6 L Carbon Dioxide 18 L BUN 94 H Creatinine 4.2 H Glucose 213 H POC Glucose 177 H 136 H Hemoglobin A1c Calcium 7.9 L Phosphorus Magnesium AST ALT Alkaline Phosphatase 167 H Lactate Dehydrogenase C-Reactive Protein Total Protein Albumin 2.8 L Triglycerides Arterial Blood Glucose Arterial Blood Ionized Calcium Urine WBC (Auto) U Epithel Cells (Auto) Urine Creatinine Random Vancomycin Coronavirus (PCR) Crossmatch 04/07/21 04/07/21 04/08/21 16:19 21:30 02:32 WBC RBC Hgb Hct MCH MCHC RDW Plt Count Lymph % (Auto) [place] # (Auto) Eos # (Auto) Seg Neutrophils % Lymphocytes % (Manual) Eosinophils % (Manual) Basophils % (Manual) Nucleated RBC % Seg Neutrophils # Seg Neutrophils # Man Lymphocytes # (Manual) Monocytes # (Manual) Eosinophils # (Manual) Basophils # (Manual) Percent Retic PT INR Fibrinogen D-Dimer ABG pH 7.209 L POC ABG pCO2 64.8 H POC ABG pO2 ABG pO2 ABG HCO3 ABG O2 Saturation ABG Base Excess ABG Hemoglobin 7.9 L ABG Oxyhemoglobin 93.8 L ABG Sodium 128.8 L ABG Potassium 4.6 H ABG Chloride 97.0 L ABG Glucose 170 H Oxyhemoglobin Carboxyhemoglobin 1.6 H Sodium Potassium Chloride Carbon Dioxide BUN Creatinine Glucose POC Glucose 155 H 141 H Hemoglobin A1c Calcium Phosphorus Magnesium AST ALT Alkaline Phosphatase Lactate Dehydrogenase C-Reactive Protein Total Protein Albumin Triglycerides Arterial Blood Glucose 170 H Arterial Blood Ionized Calcium 4.2 L Urine WBC (Auto) U Epithel Cells (Auto) Urine Creatinine Random Vancomycin Coronavirus (PCR) Crossmatch 04/08/21 04/08/21 04/08/21 04:00 04:40 04:40 WBC 23.7 H RBC 2.51 L Hgb 6.9 L Hct 22.1 L MCH 27 L MCHC RDW 18.4 H Plt Count Lymph % (Auto) [place] # (Auto) Eos # (Auto) Seg Neutrophils % Lymphocytes % (Manual) Eosinophils % (Manual) Basophils % (Manual) Nucleated RBC % Seg Neutrophils # Seg Neutrophils # Man Lymphocytes # (Manual) Monocytes # (Manual) Eosinophils # (Manual) Basophils # (Manual) Percent Retic PT INR Fibrinogen D-Dimer 2696.79 H ABG pH POC ABG pCO2 POC ABG pO2 ABG pO2 ABG HCO3 ABG O2 Saturation ABG Base Excess ABG Hemoglobin ABG Oxyhemoglobin ABG Sodium ABG Potassium ABG Chloride ABG Glucose Oxyhemoglobin Carboxyhemoglobin Sodium 133 L Potassium 5.5 H Chloride 93.5 L Carbon Dioxide BUN 78 H Creatinine 3.5 H Glucose 171 H POC Glucose Hemoglobin A1c Calcium 8.1 L Phosphorus 9.30 H Magnesium AST ALT Alkaline Phosphatase Lactate Dehydrogenase C-Reactive Protein 26.10 H Total Protein Albumin Triglycerides 487 H Arterial Blood Glucose Arterial Blood Ionized Calcium Urine WBC (Auto) U Epithel Cells (Auto) Urine Creatinine Random Vancomycin Coronavirus (PCR) Crossmatch 04/08/21 04/08/21 04/08/21 09:55 11:37 13:55 WBC RBC Hgb Hct MCH MCHC RDW Plt Count Lymph % (Auto) [place] # (Auto) Eos # (Auto) Seg Neutrophils % Lymphocytes % (Manual) Eosinophils % (Manual) Basophils % (Manual) Nucleated RBC % Seg Neutrophils # Seg Neutrophils # Man Lymphocytes # (Manual) Monocytes # (Manual) Eosinophils # (Manual) Basophils # (Manual) Percent Retic PT INR Fibrinogen D-Dimer ABG pH 7.114 L* POC ABG pCO2 POC ABG pO2 ABG pO2 75.9 L ABG HCO3 26.2 H ABG O2 Saturation 90.6 L ABG Base Excess -3.6 L ABG Hemoglobin 8.2 L ABG Oxyhemoglobin ABG Sodium ABG Potassium ABG Chloride ABG Glucose Oxyhemoglobin 88.0 L Carboxyhemoglobin Sodium Potassium Chloride Carbon Dioxide BUN Creatinine Glucose POC Glucose 156 H Hemoglobin A1c Calcium Phosphorus Magnesium AST ALT Alkaline Phosphatase Lactate Dehydrogenase C-Reactive Protein Total Protein Albumin Triglycerides Arterial Blood Glucose Arterial Blood Ionized Calcium Urine WBC (Auto) U Epithel Cells (Auto) Urine Creatinine Random Vancomycin Coronavirus (PCR) Crossmatch See Detail 04/08/21 04/08/21 04/08/21 17:04 20:53 23:56 WBC RBC Hgb Hct MCH MCHC RDW Plt Count Lymph % (Auto) [place] # (Auto) Eos # (Auto) Seg Neutrophils % Lymphocytes % (Manual) Eosinophils % (Manual) Basophils % (Manual) Nucleated RBC % Seg Neutrophils # Seg Neutrophils # Man Lymphocytes # (Manual) Monocytes # (Manual) Eosinophils # (Manual) Basophils # (Manual) Percent Retic PT INR Fibrinogen D-Dimer ABG pH 7.207 L POC ABG pCO2 49.8 H POC ABG pO2 ABG pO2 ABG HCO3 ABG O2 Saturation ABG Base Excess ABG Hemoglobin 7.6 L ABG Oxyhemoglobin ABG Sodium 127.3 L ABG Potassium 5.7 H ABG Chloride 96.0 L ABG Glucose 185 H Oxyhemoglobin Carboxyhemoglobin Sodium Potassium Chloride Carbon Dioxide BUN Creatinine Glucose POC Glucose 178 H 189 H Hemoglobin A1c Calcium Phosphorus Magnesium AST ALT Alkaline Phosphatase Lactate Dehydrogenase C-Reactive Protein Total Protein Albumin Triglycerides Arterial Blood Glucose 185 H Arterial Blood Ionized Calcium 4.3 L Urine WBC (Auto) U Epithel Cells (Auto) Urine Creatinine Random Vancomycin Coronavirus (PCR) Crossmatch 04/09/21 04/09/21 04/09/21 04:00 04:00 05:24 WBC 21.9 H RBC 2.70 L Hgb 7.8 L Hct 24.1 L MCH MCHC RDW 18.3 H Plt Count Lymph % (Auto) [place] # (Auto) Eos # (Auto) Seg Neutrophils % Lymphocytes % (Manual) Eosinophils % (Manual) Basophils % (Manual) Nucleated RBC % Seg Neutrophils # Seg Neutrophils # Man Lymphocytes # (Manual) Monocytes # (Manual) Eosinophils # (Manual) Basophils # (Manual) Percent Retic PT INR Fibrinogen D-Dimer ABG pH POC ABG pCO2 POC ABG pO2 ABG pO2 ABG HCO3 ABG O2 Saturation ABG Base Excess ABG Hemoglobin ABG Oxyhemoglobin ABG Sodium ABG Potassium ABG Chloride ABG Glucose Oxyhemoglobin Carboxyhemoglobin Sodium 131 L Potassium 6.3 H* Chloride 93.0 L Carbon Dioxide 19 L BUN 98 H Creatinine 4.6 H Glucose 208 H POC Glucose 191 H Hemoglobin A1c Calcium 8.1 L Phosphorus Magnesium AST ALT Alkaline Phosphatase Lactate Dehydrogenase C-Reactive Protein Total Protein Albumin Triglycerides Arterial Blood Glucose Arterial Blood Ionized Calcium Urine WBC (Auto) U Epithel Cells (Auto) Urine Creatinine Random Vancomycin Coronavirus (PCR) Crossmatch 04/09/21 04/09/21 04/09/21 12:42 16:59 21:00 WBC RBC Hgb Hct MCH MCHC RDW Plt Count Lymph % (Auto) [place] # (Auto) Eos # (Auto) Seg Neutrophils % Lymphocytes % (Manual) Eosinophils % (Manual) Basophils % (Manual) Nucleated RBC % Seg Neutrophils # Seg Neutrophils # Man Lymphocytes # (Manual) Monocytes # (Manual) Eosinophils # (Manual) Basophils # (Manual) Percent Retic PT INR Fibrinogen D-Dimer ABG pH 7.192 L POC ABG pCO2 63.4 H POC ABG pO2 ABG pO2 ABG HCO3 ABG O2 Saturation ABG Base Excess ABG Hemoglobin 8.7 L ABG Oxyhemoglobin 92.9 L ABG Sodium 135.1 L ABG Potassium ABG Chloride ABG Glucose 208 H Oxyhemoglobin Carboxyhemoglobin Sodium Potassium Chloride Carbon Dioxide BUN Creatinine Glucose POC Glucose 198 H 218 H Hemoglobin A1c Calcium Phosphorus Magnesium AST ALT Alkaline Phosphatase Lactate Dehydrogenase C-Reactive Protein Total Protein Albumin Triglycerides Arterial Blood Glucose 208 H Arterial Blood Ionized Calcium Urine WBC (Auto) U Epithel Cells (Auto) Urine Creatinine Random Vancomycin Coronavirus (PCR) Crossmatch 04/09/21 04/10/21 04/10/21 23:31 04:45 04:45 WBC 18.0 H RBC 2.65 L Hgb 7.4 L Hct 23.3 L MCH MCHC RDW 18.5 H Plt Count Lymph % (Auto) [place] # (Auto) Eos # (Auto) Seg Neutrophils % Lymphocytes % (Manual) Eosinophils % (Manual) Basophils % (Manual) Nucleated RBC % Seg Neutrophils # Seg Neutrophils # Man Lymphocytes # (Manual) Monocytes # (Manual) Eosinophils # (Manual) Basophils # (Manual) Percent Retic PT INR Fibrinogen D-Dimer ABG pH POC ABG pCO2 POC ABG pO2 ABG pO2 ABG HCO3 ABG O2 Saturation ABG Base Excess ABG Hemoglobin ABG Oxyhemoglobin ABG Sodium ABG Potassium ABG Chloride ABG Glucose Oxyhemoglobin Carboxyhemoglobin Sodium Potassium 5.5 H Chloride Carbon Dioxide 21 L BUN 83 H Creatinine 3.4 H Glucose 211 H POC Glucose 162 H Hemoglobin A1c Calcium Phosphorus Magnesium AST ALT Alkaline Phosphatase Lactate Dehydrogenase C-Reactive Protein Total Protein Albumin Triglycerides Arterial Blood Glucose Arterial Blood Ionized Calcium Urine WBC (Auto) U Epithel Cells (Auto) Urine Creatinine Random Vancomycin Coronavirus (PCR) Crossmatch 04/10/21 04/10/21 04/10/21 05:01 11:58 17:42 WBC RBC Hgb Hct MCH MCHC RDW Plt Count Lymph % (Auto) [place] # (Auto) Eos # (Auto) Seg Neutrophils % Lymphocytes % (Manual) Eosinophils % (Manual) Basophils % (Manual) Nucleated RBC % Seg Neutrophils # Seg Neutrophils # Man Lymphocytes # (Manual) Monocytes # (Manual) Eosinophils # (Manual) Basophils # (Manual) Percent Retic PT INR Fibrinogen D-Dimer ABG pH POC ABG pCO2 POC ABG pO2 ABG pO2 ABG HCO3 ABG O2 Saturation ABG Base Excess ABG Hemoglobin ABG Oxyhemoglobin ABG Sodium ABG Potassium ABG Chloride ABG Glucose Oxyhemoglobin Carboxyhemoglobin Sodium Potassium Chloride Carbon Dioxide BUN Creatinine Glucose POC Glucose 183 H 136 H 166 H Hemoglobin A1c Calcium Phosphorus Magnesium AST ALT Alkaline Phosphatase Lactate Dehydrogenase C-Reactive Protein Total Protein Albumin Triglycerides Arterial Blood Glucose Arterial Blood Ionized Calcium Urine WBC (Auto) U Epithel Cells (Auto) Urine Creatinine Random Vancomycin Coronavirus (PCR) Crossmatch 04/11/21 04/11/21 04/11/21 00:02 04:15 04:15 WBC 16.3 H RBC 2.53 L Hgb 7.0 L Hct 22.6 L MCH MCHC RDW 18.4 H Plt Count Lymph % (Auto) [place] # (Auto) Eos # (Auto) Seg Neutrophils % Lymphocytes % (Manual) Eosinophils % (Manual) Basophils % (Manual) Nucleated RBC % Seg Neutrophils # Seg Neutrophils # Man Lymphocytes # (Manual) Monocytes # (Manual) Eosinophils # (Manual) Basophils # (Manual) Percent Retic PT INR Fibrinogen D-Dimer ABG pH POC ABG pCO2 POC ABG pO2 ABG pO2 ABG HCO3 ABG O2 Saturation ABG Base Excess ABG Hemoglobin ABG Oxyhemoglobin ABG Sodium ABG Potassium ABG Chloride ABG Glucose Oxyhemoglobin Carboxyhemoglobin Sodium Potassium Chloride Carbon Dioxide BUN 71 H Creatinine 3.1 H Glucose 183 H POC Glucose 155 H Hemoglobin A1c Calcium Phosphorus Magnesium AST ALT Alkaline Phosphatase Lactate Dehydrogenase C-Reactive Protein Total Protein Albumin Triglycerides 406 H Arterial Blood Glucose Arterial Blood Ionized Calcium Urine WBC (Auto) U Epithel Cells (Auto) Urine Creatinine Random Vancomycin Coronavirus (PCR) Crossmatch 04/11/21 04/11/21 04/11/21 05:46 11:34 11:50 WBC RBC Hgb 6.7 L Hct 20.8 L MCH MCHC RDW Plt Count Lymph % (Auto) [place] # (Auto) Eos # (Auto) Seg Neutrophils % Lymphocytes % (Manual) Eosinophils % (Manual) Basophils % (Manual) Nucleated RBC % Seg Neutrophils # Seg Neutrophils # Man Lymphocytes # (Manual) Monocytes # (Manual) Eosinophils # (Manual) Basophils # (Manual) Percent Retic PT INR Fibrinogen D-Dimer ABG pH POC ABG pCO2 POC ABG pO2 ABG pO2 ABG HCO3 ABG O2 Saturation ABG Base Excess ABG Hemoglobin ABG Oxyhemoglobin ABG Sodium ABG Potassium ABG Chloride ABG Glucose Oxyhemoglobin Carboxyhemoglobin Sodium Potassium Chloride Carbon Dioxide BUN Creatinine Glucose POC Glucose 157 H 132 H Hemoglobin A1c Calcium Phosphorus Magnesium AST ALT Alkaline Phosphatase Lactate Dehydrogenase C-Reactive Protein Total Protein Albumin Triglycerides Arterial Blood Glucose Arterial Blood Ionized Calcium Urine WBC (Auto) U Epithel Cells (Auto) Urine Creatinine Random Vancomycin Coronavirus (PCR) Crossmatch 04/11/21 04/11/21 04/11/21 13:39 17:49 17:50 WBC RBC Hgb 6.5 L Hct 21.4 L MCH MCHC RDW Plt Count Lymph % (Auto) [place] # (Auto) Eos # (Auto) Seg Neutrophils % Lymphocytes % (Manual) Eosinophils % (Manual) Basophils % (Manual) Nucleated RBC % Seg Neutrophils # Seg Neutrophils # Man Lymphocytes # (Manual) Monocytes # (Manual) Eosinophils # (Manual) Basophils # (Manual) Percent Retic PT INR Fibrinogen D-Dimer ABG pH POC ABG pCO2 POC ABG pO2 ABG pO2 ABG HCO3 ABG O2 Saturation ABG Base Excess ABG Hemoglobin ABG Oxyhemoglobin ABG Sodium ABG Potassium ABG Chloride ABG Glucose Oxyhemoglobin Carboxyhemoglobin Sodium Potassium Chloride Carbon Dioxide BUN Creatinine Glucose POC Glucose 136 H Hemoglobin A1c Calcium Phosphorus Magnesium AST ALT Alkaline Phosphatase Lactate Dehydrogenase C-Reactive Protein Total Protein Albumin Triglycerides Arterial Blood Glucose Arterial Blood Ionized Calcium Urine WBC (Auto) U Epithel Cells (Auto) Urine Creatinine Random Vancomycin Coronavirus (PCR) Crossmatch See Detail 04/12/21 04/12/21 04/12/21 00:25 00:29 02:52 WBC RBC Hgb 7.4 L Hct 23.5 L MCH MCHC RDW Plt Count Lymph % (Auto) [place] # (Auto) Eos # (Auto) Seg Neutrophils % Lymphocytes % (Manual) Eosinophils % (Manual) Basophils % (Manual) Nucleated RBC % Seg Neutrophils # Seg Neutrophils # Man Lymphocytes # (Manual) Monocytes # (Manual) Eosinophils # (Manual) Basophils # (Manual) Percent Retic PT INR Fibrinogen D-Dimer ABG pH 7.253 L POC ABG pCO2 POC ABG pO2 ABG pO2 79.6 L ABG HCO3 ABG O2 Saturation 94.1 L ABG Base Excess -3.6 L ABG Hemoglobin 8.1 L ABG Oxyhemoglobin ABG Sodium ABG Potassium ABG Chloride ABG Glucose Oxyhemoglobin 93.6 L Carboxyhemoglobin Sodium Potassium Chloride Carbon Dioxide BUN Creatinine Glucose POC Glucose 125 H Hemoglobin A1c Calcium Phosphorus Magnesium AST ALT Alkaline Phosphatase Lactate Dehydrogenase C-Reactive Protein Total Protein Albumin Triglycerides Arterial Blood Glucose Arterial Blood Ionized Calcium Urine WBC (Auto) U Epithel Cells (Auto) Urine Creatinine Random Vancomycin Coronavirus (PCR) Crossmatch 04/12/21 04/12/21 04/12/21 04:30 04:30 05:41 WBC 17.5 H RBC 2.68 L Hgb 7.6 L Hct 24.0 L MCH MCHC RDW 18.0 H Plt Count Lymph % (Auto) [place] # (Auto) Eos # (Auto) Seg Neutrophils % Lymphocytes % (Manual) Eosinophils % (Manual) Basophils % (Manual) Nucleated RBC % Seg Neutrophils # Seg Neutrophils # Man Lymphocytes # (Manual) Monocytes # (Manual) Eosinophils # (Manual) Basophils # (Manual) Percent Retic PT INR Fibrinogen D-Dimer ABG pH POC ABG pCO2 POC ABG pO2 ABG pO2 ABG HCO3 ABG O2 Saturation ABG Base Excess ABG Hemoglobin ABG Oxyhemoglobin ABG Sodium ABG Potassium ABG Chloride ABG Glucose Oxyhemoglobin Carboxyhemoglobin Sodium Potassium Chloride Carbon Dioxide BUN 87 H Creatinine 4.5 H Glucose 136 H POC Glucose 115 H Hemoglobin A1c Calcium Phosphorus 6.50 H Magnesium AST ALT Alkaline Phosphatase Lactate Dehydrogenase C-Reactive Protein Total Protein Albumin Triglycerides Arterial Blood Glucose Arterial Blood Ionized Calcium Urine WBC (Auto) U Epithel Cells (Auto) Urine Creatinine Random Vancomycin Coronavirus (PCR) Crossmatch 04/12/21 04/12/21 04/13/21 11:57 17:19 00:24 WBC RBC Hgb Hct MCH MCHC RDW Plt Count Lymph % (Auto) [place] # (Auto) Eos # (Auto) Seg Neutrophils % Lymphocytes % (Manual) Eosinophils % (Manual) Basophils % (Manual) Nucleated RBC % Seg Neutrophils # Seg Neutrophils # Man Lymphocytes # (Manual) Monocytes # (Manual) Eosinophils # (Manual) Basophils # (Manual) Percent Retic PT INR Fibrinogen D-Dimer ABG pH POC ABG pCO2 POC ABG pO2 ABG pO2 ABG HCO3 ABG O2 Saturation ABG Base Excess ABG Hemoglobin ABG Oxyhemoglobin ABG Sodium ABG Potassium ABG Chloride ABG Glucose Oxyhemoglobin Carboxyhemoglobin Sodium Potassium Chloride Carbon Dioxide BUN Creatinine Glucose POC Glucose 137 H 177 H 188 H Hemoglobin A1c Calcium Phosphorus Magnesium AST ALT Alkaline Phosphatase Lactate Dehydrogenase C-Reactive Protein Total Protein Albumin Triglycerides Arterial Blood Glucose Arterial Blood Ionized Calcium Urine WBC (Auto) U Epithel Cells (Auto) Urine Creatinine Random Vancomycin Coronavirus (PCR) Crossmatch 04/13/21 04/13/21 04/13/21 03:52 04:44 04:44 WBC 13.1 H RBC 2.57 L Hgb 7.3 L Hct 23.2 L MCH MCHC RDW 17.6 H Plt Count 73 L Lymph % (Auto) [place] # (Auto) Eos # (Auto) Seg Neutrophils % Lymphocytes % (Manual) Eosinophils % (Manual) Basophils % (Manual) Nucleated RBC % Seg Neutrophils # Seg Neutrophils # Man Lymphocytes # (Manual) Monocytes # (Manual) Eosinophils # (Manual) Basophils # (Manual) Percent Retic PT 16.0 H INR 1.16 H Fibrinogen D-Dimer ABG pH 7.195 L* POC ABG pCO2 POC ABG pO2 ABG pO2 98.9 H ABG HCO3 ABG O2 Saturation ABG Base Excess -2.9 L ABG Hemoglobin 7.4 L ABG Oxyhemoglobin ABG Sodium ABG Potassium ABG Chloride ABG Glucose Oxyhemoglobin 94.3 L Carboxyhemoglobin Sodium Potassium Chloride Carbon Dioxide BUN Creatinine Glucose POC Glucose Hemoglobin A1c Calcium Phosphorus Magnesium AST ALT Alkaline Phosphatase Lactate Dehydrogenase C-Reactive Protein Total Protein Albumin Triglycerides Arterial Blood Glucose Arterial Blood Ionized Calcium Urine WBC (Auto) U Epithel Cells (Auto) Urine Creatinine Random Vancomycin Coronavirus (PCR) Crossmatch 04/13/21 04/13/21 04/13/21 04:44 05:26 11:32 WBC RBC Hgb Hct MCH MCHC RDW Plt Count Lymph % (Auto) [place] # (Auto) Eos # (Auto) Seg Neutrophils % Lymphocytes % (Manual) Eosinophils % (Manual) Basophils % (Manual) Nucleated RBC % Seg Neutrophils # Seg Neutrophils # Man Lymphocytes # (Manual) Monocytes # (Manual) Eosinophils # (Manual) Basophils # (Manual) Percent Retic PT INR Fibrinogen D-Dimer ABG pH POC ABG pCO2 POC ABG pO2 ABG pO2 ABG HCO3 ABG O2 Saturation ABG Base Excess ABG Hemoglobin ABG Oxyhemoglobin ABG Sodium ABG Potassium ABG Chloride ABG Glucose Oxyhemoglobin Carboxyhemoglobin Sodium Potassium Chloride Carbon Dioxide BUN 75 H Creatinine 3.8 H Glucose 183 H POC Glucose 163 H 169 H Hemoglobin A1c Calcium Phosphorus 6.80 H Magnesium AST ALT Alkaline Phosphatase Lactate Dehydrogenase C-Reactive Protein Total Protein Albumin Triglycerides Arterial Blood Glucose Arterial Blood Ionized Calcium Urine WBC (Auto) U Epithel Cells (Auto) Urine Creatinine Random Vancomycin Coronavirus (PCR) Crossmatch 04/13/21 04/13/21 04/13/21 17:28 21:00 23:28 WBC RBC Hgb Hct MCH MCHC RDW Plt Count Lymph % (Auto) [place] # (Auto) Eos # (Auto) Seg Neutrophils % Lymphocytes % (Manual) Eosinophils % (Manual) Basophils % (Manual) Nucleated RBC % Seg Neutrophils # Seg Neutrophils # Man Lymphocytes # (Manual) Monocytes # (Manual) Eosinophils # (Manual) Basophils # (Manual) Percent Retic PT INR Fibrinogen D-Dimer ABG pH POC ABG pCO2 48.6 H POC ABG pO2 ABG pO2 ABG HCO3 ABG O2 Saturation ABG Base Excess ABG Hemoglobin 8.3 L ABG Oxyhemoglobin ABG Sodium 134.6 L ABG Potassium ABG Chloride ABG Glucose 243 H Oxyhemoglobin Carboxyhemoglobin 0.4 L Sodium Potassium Chloride Carbon Dioxide BUN Creatinine Glucose POC Glucose 174 H 207 H Hemoglobin A1c Calcium Phosphorus Magnesium AST ALT Alkaline Phosphatase Lactate Dehydrogenase C-Reactive Protein Total Protein Albumin Triglycerides Arterial Blood Glucose 243 H Arterial Blood Ionized Calcium Urine WBC (Auto) U Epithel Cells (Auto) Urine Creatinine Random Vancomycin Coronavirus (PCR) Crossmatch 04/14/21 04/14/21 04/14/21 04:43 04:43 05:28 WBC 11.8 H RBC 2.58 L Hgb 7.5 L Hct 23.4 L MCH MCHC RDW 17.1 H Plt Count 45 L Lymph % (Auto) [place] # (Auto) Eos # (Auto) Seg Neutrophils % Lymphocytes % (Manual) Eosinophils % (Manual) Basophils % (Manual) Nucleated RBC % Seg Neutrophils # Seg Neutrophils # Man Lymphocytes # (Manual) Monocytes # (Manual) Eosinophils # (Manual) Basophils # (Manual) Percent Retic PT INR Fibrinogen D-Dimer ABG pH POC ABG pCO2 POC ABG pO2 ABG pO2 ABG HCO3 ABG O2 Saturation ABG Base Excess ABG Hemoglobin ABG Oxyhemoglobin ABG Sodium ABG Potassium ABG Chloride ABG Glucose Oxyhemoglobin Carboxyhemoglobin Sodium Potassium Chloride Carbon Dioxide BUN 74 H Creatinine 3.1 H Glucose 220 H POC Glucose 200 H Hemoglobin A1c Calcium Phosphorus Magnesium AST ALT Alkaline Phosphatase Lactate Dehydrogenase C-Reactive Protein Total Protein Albumin Triglycerides Arterial Blood Glucose Arterial Blood Ionized Calcium Urine WBC (Auto) U Epithel Cells (Auto) Urine Creatinine Random Vancomycin Coronavirus (PCR) Crossmatch 04/14/21 04/14/21 04/14/21 11:10 16:20 21:00 WBC RBC Hgb Hct MCH MCHC RDW Plt Count Lymph % (Auto) [place] # (Auto) Eos # (Auto) Seg Neutrophils % Lymphocytes % (Manual) Eosinophils % (Manual) Basophils % (Manual) Nucleated RBC % Seg Neutrophils # Seg Neutrophils # Man Lymphocytes # (Manual) Monocytes # (Manual) Eosinophils # (Manual) Basophils # (Manual) Percent Retic PT INR Fibrinogen D-Dimer ABG pH 7.207 L POC ABG pCO2 67.6 H POC ABG pO2 143.7 H ABG pO2 ABG HCO3 ABG O2 Saturation ABG Base Excess ABG Hemoglobin 7.6 L ABG Oxyhemoglobin ABG Sodium 133.8 L ABG Potassium ABG Chloride ABG Glucose 158 H Oxyhemoglobin Carboxyhemoglobin Sodium Potassium Chloride Carbon Dioxide BUN Creatinine Glucose POC Glucose 160 H 168 H Hemoglobin A1c Calcium Phosphorus Magnesium AST ALT Alkaline Phosphatase Lactate Dehydrogenase C-Reactive Protein Total Protein Albumin Triglycerides Arterial Blood Glucose 158 H Arterial Blood Ionized Calcium Urine WBC (Auto) U Epithel Cells (Auto) Urine Creatinine Random Vancomycin Coronavirus (PCR) Crossmatch 04/14/21 04/15/21 04/15/21 23:53 08:20 11:10 WBC RBC Hgb Hct MCH MCHC RDW Plt Count Lymph % (Auto) [place] # (Auto) Eos # (Auto) Seg Neutrophils % Lymphocytes % (Manual) Eosinophils % (Manual) Basophils % (Manual) Nucleated RBC % Seg Neutrophils # Seg Neutrophils # Man Lymphocytes # (Manual) Monocytes # (Manual) Eosinophils # (Manual) Basophils # (Manual) Percent Retic PT INR Fibrinogen D-Dimer ABG pH 7.305 L POC ABG pCO2 48.3 H POC ABG pO2 ABG pO2 ABG HCO3 ABG O2 Saturation ABG Base Excess ABG Hemoglobin 7.5 L ABG Oxyhemoglobin ABG Sodium 134.1 L ABG Potassium ABG Chloride ABG Glucose 146 H Oxyhemoglobin Carboxyhemoglobin Sodium Potassium Chloride Carbon Dioxide BUN Creatinine Glucose POC Glucose 147 H 161 H Hemoglobin A1c Calcium Phosphorus Magnesium AST ALT Alkaline Phosphatase Lactate Dehydrogenase C-Reactive Protein Total Protein Albumin Triglycerides Arterial Blood Glucose 146 H Arterial Blood Ionized Calcium Urine WBC (Auto) U Epithel Cells (Auto) Urine Creatinine Random Vancomycin Coronavirus (PCR) Crossmatch 04/15/21 04/15/21 04/15/21 12:10 12:10 16:21 WBC RBC Hgb Hct MCH MCHC RDW Plt Count Lymph % (Auto) [place] # (Auto) Eos # (Auto) Seg Neutrophils % Lymphocytes % (Manual) Eosinophils % (Manual) Basophils % (Manual) Nucleated RBC % Seg Neutrophils # Seg Neutrophils # Man Lymphocytes # (Manual) Monocytes # (Manual) Eosinophils # (Manual) Basophils # (Manual) Percent Retic PT INR Fibrinogen D-Dimer ABG pH POC ABG pCO2 POC ABG pO2 ABG pO2 ABG HCO3 ABG O2 Saturation ABG Base Excess ABG Hemoglobin ABG Oxyhemoglobin ABG Sodium ABG Potassium ABG Chloride ABG Glucose Oxyhemoglobin Carboxyhemoglobin Sodium Potassium Chloride Carbon Dioxide BUN Creatinine Glucose POC Glucose 166 H 157 H Hemoglobin A1c Calcium Phosphorus Magnesium AST ALT Alkaline Phosphatase Lactate Dehydrogenase C-Reactive Protein Total Protein Albumin Triglycerides Arterial Blood Glucose Arterial Blood Ionized Calcium Urine WBC (Auto) U Epithel Cells (Auto) Urine Creatinine Random Vancomycin Coronavirus (PCR) Crossmatch See Detail 04/15/21 04/15/21 04/15/21 18:35 23:16 Unknown WBC 11.8 H RBC 2.41 L Hgb 7.1 L Hct 22.4 L MCH MCHC RDW 17.0 H Plt Count 38 L Lymph % (Auto) [place] # (Auto) Eos # (Auto) Seg Neutrophils % Lymphocytes % (Manual) Eosinophils % (Manual) Basophils % (Manual) Nucleated RBC % Seg Neutrophils # Seg Neutrophils # Man Lymphocytes # (Manual) Monocytes # (Manual) Eosinophils # (Manual) Basophils # (Manual) Percent Retic PT INR Fibrinogen D-Dimer ABG pH POC ABG pCO2 POC ABG pO2 ABG pO2 ABG HCO3 ABG O2 Saturation ABG Base Excess ABG Hemoglobin ABG Oxyhemoglobin ABG Sodium ABG Potassium ABG Chloride ABG Glucose Oxyhemoglobin Carboxyhemoglobin Sodium Potassium Chloride Carbon Dioxide BUN Creatinine Glucose POC Glucose 148 H Hemoglobin A1c Calcium Phosphorus Magnesium AST ALT Alkaline Phosphatase Lactate Dehydrogenase C-Reactive Protein Total Protein Albumin Triglycerides Arterial Blood Glucose Arterial Blood Ionized Calcium Urine WBC (Auto) 156.0 H U Epithel Cells (Auto) 15.0 H Urine Creatinine Random Vancomycin Coronavirus (PCR) Crossmatch 04/15/21 04/15/21 04/16/21 Unknown Unknown 04:54 WBC 15.4 H RBC 2.59 L Hgb 7.7 L Hct 24.1 L MCH MCHC RDW 16.6 H Plt Count 42 L Lymph % (Auto) [place] # (Auto) Eos # (Auto) Seg Neutrophils % Lymphocytes % (Manual) Eosinophils % (Manual) Basophils % (Manual) Nucleated RBC % Seg Neutrophils # Seg Neutrophils # Man Lymphocytes # (Manual) Monocytes # (Manual) Eosinophils # (Manual) Basophils # (Manual) Percent Retic PT 16.3 H INR 1.18 H Fibrinogen D-Dimer ABG pH POC ABG pCO2 POC ABG pO2 ABG pO2 ABG HCO3 ABG O2 Saturation ABG Base Excess ABG Hemoglobin ABG Oxyhemoglobin ABG Sodium ABG Potassium ABG Chloride ABG Glucose Oxyhemoglobin Carboxyhemoglobin Sodium Potassium Chloride Carbon Dioxide BUN 67 H Creatinine 3.3 H Glucose 155 H POC Glucose Hemoglobin A1c Calcium 8.3 L Phosphorus 5.70 H Magnesium AST 85 H ALT 63 H Alkaline Phosphatase Lactate Dehydrogenase C-Reactive Protein Total Protein Albumin 2.4 L Triglycerides Arterial Blood Glucose Arterial Blood Ionized Calcium Urine WBC (Auto) U Epithel Cells (Auto) Urine Creatinine Random Vancomycin Coronavirus (PCR) Crossmatch 04/16/21 04/16/21 04/16/21 04:54 05:23 11:06 WBC RBC Hgb Hct MCH MCHC RDW Plt Count Lymph % (Auto) [place] # (Auto) Eos # (Auto) Seg Neutrophils % Lymphocytes % (Manual) Eosinophils % (Manual) Basophils % (Manual) Nucleated RBC % Seg Neutrophils # Seg Neutrophils # Man Lymphocytes # (Manual) Monocytes # (Manual) Eosinophils # (Manual) Basophils # (Manual) Percent Retic PT INR Fibrinogen D-Dimer ABG pH POC ABG pCO2 POC ABG pO2 ABG pO2 ABG HCO3 ABG O2 Saturation ABG Base Excess ABG Hemoglobin ABG Oxyhemoglobin ABG Sodium ABG Potassium ABG Chloride ABG Glucose Oxyhemoglobin Carboxyhemoglobin Sodium Potassium Chloride Carbon Dioxide BUN 82 H Creatinine 3.4 H Glucose 142 H POC Glucose 118 H 133 H Hemoglobin A1c Calcium 8.2 L Phosphorus Magnesium AST ALT Alkaline Phosphatase Lactate Dehydrogenase C-Reactive Protein Total Protein Albumin Triglycerides Arterial Blood Glucose Arterial Blood Ionized Calcium Urine WBC (Auto) U Epithel Cells (Auto) Urine Creatinine Random Vancomycin Coronavirus (PCR) Crossmatch 04/16/21 04/16/21 04/17/21 15:50 23:36 04:10 WBC RBC Hgb Hct MCH MCHC RDW Plt Count Lymph % (Auto) [place] # (Auto) Eos # (Auto) Seg Neutrophils % Lymphocytes % (Manual) Eosinophils % (Manual) Basophils % (Manual) Nucleated RBC % Seg Neutrophils # Seg Neutrophils # Man Lymphocytes # (Manual) Monocytes # (Manual) Eosinophils # (Manual) Basophils # (Manual) Percent Retic PT INR Fibrinogen D-Dimer ABG pH 7.300 L 7.294 L POC ABG pCO2 49.3 H 51.9 H POC ABG pO2 ABG pO2 ABG HCO3 ABG O2 Saturation ABG Base Excess ABG Hemoglobin 9.5 L 7.4 L ABG Oxyhemoglobin ABG Sodium 133.8 L 132.3 L ABG Potassium 4.7 H 5.4 H ABG Chloride ABG Glucose 155 H 187 H Oxyhemoglobin Carboxyhemoglobin 0.1 L Sodium Potassium Chloride Carbon Dioxide BUN Creatinine Glucose POC Glucose 141 H Hemoglobin A1c Calcium Phosphorus Magnesium AST ALT Alkaline Phosphatase Lactate Dehydrogenase C-Reactive Protein Total Protein Albumin Triglycerides Arterial Blood Glucose 155 H 187 H Arterial Blood Ionized Calcium Urine WBC (Auto) U Epithel Cells (Auto) Urine Creatinine Random Vancomycin Coronavirus (PCR) Crossmatch 04/17/21 04/17/21 04:42 04:42 WBC 14.1 H RBC 2.39 L Hgb 7.1 L Hct 22.3 L MCH MCHC RDW 16.8 H Plt Count 49 L Lymph % (Auto) [place] # (Auto) Eos # (Auto) Seg Neutrophils % Lymphocytes % (Manual) 10.0 L Eosinophils % (Manual) Basophils % (Manual) Nucleated RBC % Seg Neutrophils # Seg Neutrophils # Man 9.6 H Lymphocytes # (Manual) Monocytes # (Manual) Eosinophils # (Manual) Basophils # (Manual) Percent Retic PT INR Fibrinogen D-Dimer ABG pH POC ABG pCO2 POC ABG pO2 ABG pO2 ABG HCO3 ABG O2 Saturation ABG Base Excess ABG Hemoglobin ABG Oxyhemoglobin ABG Sodium ABG Potassium ABG Chloride ABG Glucose Oxyhemoglobin Carboxyhemoglobin Sodium Potassium 5.7 H D Chloride Carbon Dioxide BUN 101 H Creatinine 3.8 H Glucose 179 H POC Glucose Hemoglobin A1c Calcium 8.1 L Phosphorus 7.90 H Magnesium AST ALT Alkaline Phosphatase Lactate Dehydrogenase C-Reactive Protein Total Protein Albumin Triglycerides Arterial Blood Glucose Arterial Blood Ionized Calcium Urine WBC (Auto) U Epithel Cells (Auto) Urine Creatinine Random Vancomycin Coronavirus (PCR) Crossmatch Chest x-ray: report reviewed, image reviewed Additional Studies: CHEST 1 VIEW 04/17/2021 8:36 AM INDICATION / CLINICAL INFORMATION: resp failure. COMPARISON: 04/15/2021 FINDINGS: SUPPORT DEVICES: Right IJ CVL and endotracheal tube are in good position. Additional tube projecting over mid chest may represent esophagogastric tube located in the midesophagus. HEART / MEDIASTINUM: Stable. LUNGS / PLEURA: Bilateral airspace opacities have similar appearance. No pneumothorax. ADDITIONAL FINDINGS: No significant additional findings. IMPRESSION: 1. Bilateral airspace opacities have similar appearance. 2. Possible esophagogastric tube terminating in mid esophagus. Recommend clinical correlation. Allied health notes reviewed: nursing
[2021-04-17 11:47] LABS: Albumin 2.1 g/dL (3.9-5); Calcium 7.8 mg/dL (8.4-10.2); INR 1.26 (0.87-1.13); Partial Thromboplastin Time 27.5 Sec. (24.2-36.6)
[2021-04-17 12:01] LABS: Platelet Count 53 K/mm3 (140-440)
--- NOTE | 2021-04-17 15:58 | Progress Note ---
<CRISTY PASCUAL - Last Filed: 04/17/21 16:05> Assessment and Plan Assessment and plan: This is a 31-year-old female with asthma, morbid obesity and Crohn's disease admitted for COVID-19 pneumonia and and acute renal failure Neuro: Sedated -Intubated and sedated with propofol, fentanyl, Versed -sedation to vent synchrony -Seroquel -As needed ECG for QTC monitoring -Daily SAT/SBT when appropriate -Maintain sleep-wake cycle -Avoid delirium -CT head with no acute abnormality CV: Tachycardia, s/p hypertension now with hypotension -ST on the monitor -Vasopressor support with levophed, vasopressin (wean off as tolerated) -Maintain MAP above 65 -Blood pressure monitoring via keesha Respiratory: Acute hypoxic respiratory failure, s/p asthma exacerbation, COVID- 19 pneumonia, ARDS, RUL PNA, bronchospasm (resolved) -Patient was intubated on 03/14 for respiratory distress and inability to protect airway with her ETT exchange on 04/11 -plan to consult surgery next week for trach/peg -Intubated with 7.50 ETT at 24 at the lip -A.m. vent settings: AC/PCV rate 30, FiO2 50%, PEEP 10, drive pressure 35 -See RT notes for titration -ABGs per CCM -VAP bundle -SPO2 monitoring -CCM/pulmonary consulted, appreciate recommendations -S/p BiPAP therapy -S/p Bronc on 04/11 which showed alveolar hemorrhage GI: h/o MO and Crohn's disease -Nutrition consulted, appreciate recommendations -Tube feeding: Nepro -Free water 100 mL every 4 hours -BR: [place] -PPI -24 hours +3122 ml : Acute kidney injury likely secondary to Acute tubular necrosis which progressed to HD, hyperkalemia, hyperphosphatemia -Nephrology consulted, appreciate recommendations -Vas-Cath placed 03/15 -HD initiated 03/15 -Daily weights -Strict intake and output -Avoid nephrotoxic medications -Renally dose medications -Trend BMP -Intervene for electrolytes as needed -HD per nephrology -s/p Bicarb gtt -phos binders PO ID: COVID-19 pneumonia, leukocytosis, Staph aureus in tracheal aspirate, Conjunctival hemorrhage, ?HUS vs drug reaction -Infectious disease consulted, appreciate recommendations -03/14 COVID-19 PCR (+), 04/10 COVID PCR (-) -1 g of methylprednisone for 3 days (03/31 through 04/02 with taper) -Restarted on stress dose steroids on 04/10 -started taper 04/15 (decrease by 25mg) -s/p Actemra per ID -Per ID patient is on a candidate for remdesivir due to renal failure -Patient received 1 dose of remdesivir on 03/14 -Prophylactic anticoagulation based on D-dimer -s/p Cipro/Dex drops for 5 days -Abx per ID: Levaquin, Merrem, micafungin -Trend COVID-19 inflammatory markers -Isolation/droplet precautions for 21 days -Vitamin C/vitamin D/zinc -follow culture data -Monitor WBC and fever curve -s/p plasmapheresis x2 (04/01-04/02) -LDH 509, Eliezer fibrinogen 491 -s/p Artic sun for temp regulation -04/13 given 1g solumedoral x1 for possible anaphylaxis reaction post contrast on -benadryl q6 for 3 days (04/13-04/14) Heme: Leukocytosis, elevated D-dimer, thrombocytopenia, anemia requiring transfusions -Trend CBC -Transfuse hemoglobin less than 7 -withholding chemical anticoagulation at this time d/t bleeding and low plts -SCDs to bilateral lower extremity while in bed -BLE duplex US shows no DVT -03/22 HIT negative, 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 The aggregate critical care time was [60] minutes. This time is in addition to time spent performing reported procedures but includes the following: [x] Data Review and interpretation [x] Patient assessment and monitoring of vital signs [x] Documentation [x] Medication orders and management Disposition Plan: icu Total Time Spent with Patient (Minutes): 60 History Interval history: This is a 31-year-old female with asthma, history of prior intubation x1 in 02/2019, morbid obesity and Crohn's disease who presented to the emergency department on 03/13 with complaints of severe wheezing and shortness of breath over the past 4 days which is not relieved by home nebulizer treatments or rescue inhalers, cough without fever and no loss of sense of taste or smell. Patient is currently on vaccinated for COVID-19. In the emergency department patient was placed on BiPAP given steroids magnesium Solu-Medrol with improvement, CXR shows a streak of possible pneumonia. Patient was made a COVID-19 PUI and admitted to the hospital service. Patient was initially admitted to [facility] on BiPAP and was subsequently intubated due to severe respiratory distress and inability to protect her airway. Patient was admitted with acute hypoxic respiratory failure, acute asthma exacerbation, right upper lobe pneumonia, and as a COVID-19 PUI. Hospital Course to Date: 03/14/21- Patient is s/p intubation from this morning, sedated on propofol and fentanyl RASS -3 to -4. ETT above the clavicles advanced by 2cc. Continue nebs and IV steroids per [facility]. COVID swab pending. Hyperkalemia improved, X1 dose of kayaxalate ordered. Low BP and low urine output this am, fluid bolus challenge, 500cc of NS bolus given. Continue to monitor electrolytes and renal function, repeat BMP this afternoon. 03/15: Patient's renal function noted to be significantly worse today, patient was hyperkalemic and this was medically treated. Patient initiated on hemodialysis today. infectious disease was consulted today. 03/16: No acute events reported overnight, patient received hemodialysis yesterday. Patient is currently on propofol and fentanyl. 03/17: Patient received hemodialysis today, patient is slightly acidotic on ABG however [facility] is allowing for permissive hypercapnia, tracheal aspirate with Staph aureus and ID is aware. 03/18: Patient is having high residuals today and Reglan was started, patient will receive HD daily per nephrology, correct her change in FiO2 as tolerated. 03/19: HD per nephrology today, antibiotics changed to cefazolin. Patient did not tolerate tube feedings as she had high residuals this morning and they were turned off. Not restarted yet. Updated family at bedside today 03/20: HD today, ddimer noted to be >1000, Tolerating trickle TF. Stat BLE dopplar US 03/21: Patient is not tolerating TF, CXR shows worsening infiltrates, [facility] made changes to vent, TF on hold and started on IVF. 03/22/21- Patient remains intubated and on sedation. Persistent vomiting, TF held overnight, no documented BM, on reglan BR added, Shaun citarte & supp. HD today. Plan to restart TF at 10ml/hr, will reevaluate in the am. Persistent thrombocytopenia, Hep on hold, HIT panel ordered, PO eliquis initiated. 03/23/21- Patient remains on the vent and sedated on propofol and fentanyl RASS - 2 to -3. Possible SAT today as tolerated. Patient tolerated trickle feeds overnight, plan to advance TF by 10cc Q8 to 12hrs. Continue current BR and continue reglan for now. Slightr worsening in acidosis from this am, d/w [facility] vent setting adjusted, will repeat ABG at 9pm. 03/24/21- Patient is on the vent and sedated, on fentanyl and propfol. Bilateral subconjunctival hemorrhage with periorbital edema noted this am, pupils are round and reactive, will Cipro/Dex [id number]. Worsening of kidney function from today's labs, plan for HD per Nephro. 03/25/21- Patient remains intubated and on sedatin, RASS 0 to -1, no longer on pressors. Sudden drop in H&H this am, bilateral subconjunctival hemorrhage with no sig change, no signs of any active bleeding. Patient appears neurologically intact, following commands, pupils are round and reactive with + gag and cough, moved all extremities. D/w [facility] patient is too unstable for CT at this time. Eliquis D/Devaughn, 1unit of PRBC ordered. Will continue to trend CBC. Plan for another section of HD today 03/26/21- Patient remains on the vent and sedated. VENICE reported from overnight. Plan for HD again today. H&H back up and stable, no AC at this time, SCDs for VTE phro. D/w [facility] patient is still too unstable for CT scan, will continue neuro exam and will continue to monitor H&H. 03/27/21- VENICE overnight. remains on the vent and sedated. Red localized rashes noted in patient upper chest and face, will r/o allergic reaction,CBC with auto diff and urine eosinophils ordered. Plan for HD today per Nephro. 03/28/21- Patient remains on the vent and sedated. Persistent fevers overnight unrelieved with antipyretic, currently on a cooling blanket. Back on pressors fo r hypotension, patient already on IV abx, last blood cultureX2 and sputum culture from 03/23 were negative. Continue IV abx, will reculture patient, orders placed for B.culture and sputum culture. ID is also on consult. will continue F/u on culture and continue to monitor BMP and CBC. 03/29: Patient restarted on prednisone given splotchy rash, will resume apixaban for VTE prophylaxis and repeat ABG at 9 PM. Remains with leukocytosis, elevated BUN/creatinine, elevated triglycerides and on Levophed 03/30: HD today, rash is still present and started on IV steroids. plt is low today but will continue to monitor. CCM made changes to vent-> decrease in MV. ABG in the pm and possible punch biopsy tomorrow if rash is not improved. propofol changed to versed 03/31: Heme/oncology consulted yesterday, will start patient on plasmapheresis for possible HUS. Cefepime discontinued today as today was the last day. Patient started on pulse dose steroids of 1 g/day for 3 days. Some improvement noted to eyes this morning. Patient was febrile overnight and received ibuprofen overnight. Acetaminophen allergy confirmed with family, allergy is only to oxycodone and hydrocodone but not the acetaminophen component. Confirmed by family patient has no reaction to [id number] Tylenol. Remains on vasopressor support and sedated with fentanyl, propofol and Versed. Vent mode changed to pressure control ventilation. Patient started on Arctic sun for fever control. Mother updated over telephone this a.m. and this p.m. family meeting held with her mother, sister x 2 and brother and with 2 other unknown people over the phone (1 female and one male) and nurse. Family states that patient is likely to an antibiotic possibly penicillins. This information was not available to us before. 04/01: Hyperkalemia medically treated, patient scheduled for dialysis today, plasmapheresis for possible HUS scheduled for today, steroids should be ending tomorrow, generalized rash/discoloration minimally better. Patient still remains on Arctic sun for temperature regulation. Vent changes per [facility]. 04/02: plasma exchange, tessa on sedatives and vasopressor support, HD for ultrafiltration 04/03: remains on artic sun but water temp noted to be in the 30s today. Completed plasmapheresis x2 and is now on steroid taper however minimal change noted to rash/discoloration. Eyes are more clear today but remain red under lids (tops of eye). Acidosis noted on ABG. Hyperkalemia and hyperphosphatemeia persists. Sedation increased for RR in to the 40s-50s and vasopressors being titrated as tolerated. 04/04: Patient receiving 1 unit PRBC per heme's recommendation, increased respiratory effort noted, patient is acidotic on ABG and given 1 amp of bicarb in addition to bicarb drip, sedation increased for vent synchrony. No HD per nephrology given tachycardia. Seroquel started. 04/05: Patient on the vent and sedated, still on 3 pressors. Patient to wean off propofol gtt, seroquel increased. Patient afebrile overnight, however artic sun is still in place. Will attempt to take off the cooling blanket today, will continue to assess for fever curve. Continue current IV Abx therapy per ID. Plan for HD today per Nephro. Patient's family at the bedside, thoroughly discussed patient's condition and overall poor prognosis. All questions and concerns were addressed. Team will continue to f/u with family with further updates. 04/06: Patient remains sedated and on the vent, still on fent and versed, propofol was weaned off. Low Hbg this am, 2 units of PRBCs ordered. Patient febrile overnight, patient completed IV abx course, leukocytosis downtrending. c/f for possible drug fever vs DVT, BLE doppler reordered to R/O DVT. Patient remains on high dose pressors, wean pressors as tolerated for MAP of 65. 04/07: Patient appears to be in distress thi am, tachypneic and tachycardic, with increased work of breathing. Propofol stopped this am. IV push versed given and versed gtt was increased to max. D/w [facility] plan to possibly restart propofol since patient is not tolerating sedation wean. Patient remains febrile throughout, pancultured yesterday by ID and IV abx was restarted. Overall poor prognosis at this time. Patient's mother and siblings at the bedside were update on patient's status. Plan for possible family meeting with the care team Monday. 04/08: Patient with worsening CXR this am, increased of vent setting overnight, respiratory acidosis from this am ABG. Patient remains febrile, IV ABx switched to Merrem for VAP coverage, ID is following. Patient remains on sedation and on pressors. Low hemoglobin this am, 1unit of PRBCs ordered. Hyperkalemia noted, per Nephro it is stable no intervention at this time plan for HD tomorrow. Spoke with patient's mom, meeting postponed for possibly next week, case management to arrange. Hospitalist also called and updated patient's mother. Team will continue to follow up. 04/09: Patient condition remains unchanged, on the vent, on sedation, and on 2 pressors. Still febrile, on IV Abx, X1 set of fungal blood culture ordered. D/w ID recommended to start micafungin 100mg Qday. Hyperkalemic this am, plan for HD today. 04/10: VENICE overnight. Patient remains on the vent and sedated. Afebrile overnight, stress steroids added, pressors requirement is going down. HD overnight 3L out, plan for HD again today. Continue IV Abx and antifungal, F/u on culture data. 04/11: Patient remains on the vent and sedated, on minimal pressors this am. Tachycardic HR in the 130-140s this am. Per RN 4L out in HD yesterday, X1 dose of 25% Albumin given. Bloody drainage with clots also noted from patient nose, mouth, and ETT, Hbg 7 this am. Will hold AC for now, serial H&H ordered, transfuse if Hbg less than 7. 04/12: Patient was able to get HD today, Levaquin was stopped by ID. Consider CT chest/abdomen/pelvis when feasible per ID. Patient remains tachycardic. Was febrile most of the day however temperature decreased with icing and tylenol. 04/13: Patient had a CT chest, abdomen/pelvis with oral contrast and CT head today. Patient received 1 unit PRBC today given down trending of H/H with continual bloody drainage from mouth/nose. Patient will receive hemodialysis today. Patient started on Benadryl every 6, received 1 g of Solu-Medrol x1 for apparent angioedema post CT with contrast. 04/14: family meeting today with Dr. Mcclendon and Bola. Continue supportive care. Thrombocytopenia today and given 1 units platelets. Vasopressors where weaned off overnight but restarted this morning for low maps. Will consider t dayron/peg next week with lower vent settings. 04/15: started taper on steroids, 1 units prbc per hem/onc, holding HD today per nephrology for ST. Still febrile, will reculture today. 04/16: Was able to be titrated off Levophed today. Was taken off vaso overnight and this was restarted today which briefly helped HR which was losw 100s. Weaning fentanyl and Versed as tolerated. HD today. Patient tachy this afternoon. 04/17: 2 units PRBC ordered for today. Still remains on vasopressin. HIT po sitive but anticoagulation withheld due to persistent thrombocytopenia and bleeding. Hospitalist Physical - Constitutional Vitals: Temp Pulse Resp BP Pulse Ox 99.3 F 101 H 30 H 118/73 98 04/17/21 12:00 04/17/21 15:15 04/17/21 15:15 04/17/21 15:14 04/17/21 15:14 General appearance: Present: no acute distress, well-nourished, obese, other (Intubated and sedated) - EENT Eyes: Present: PERRL ENT: dentition normal - Neck Neck: Present: normal ROM - Respiratory Respiratory effort: normal Respiratory: bilateral: diminished - Cardiovascular Rhythm: regular Heart Sounds: Present: S1 & S2. Absent: systolic murmur, diastolic murmur - Extremities Extremities: no ischemia, pulses intact, pulses symmetrical, No edema, normal temperature, normal color Peripheral Pulses: within normal limits - Abdominal General gastrointestinal: soft, non-tender, non-distended, normal bowel sounds - Integumentary Integumentary: Present: warm, dry - Psychiatric Psychiatric: other (sedated) - Neurologic Neurologic: other (Open eyes to verbal stimuli) Results - Labs CBC & Chem 7: 04/17/21 10:58 04/17/21 10:58 Labs: Laboratory Last Values WBC 12.3 K/mm3 (4.5-11.0) H 04/17/21 10:58 RBC 2.25 M/mm3 (3.65-5.03) L 04/17/21 10:58 Hgb 6.7 gm/dl (10.1-14.3) L 04/17/21 10:58 Hct 20.9 % (30.3-42.9) L 04/17/21 10:58 MCV 93 fl (79-97) 04/17/21 10:58 MCH 30 pg (28-32) 04/17/21 10:58 MCHC 32 % (30-34) 04/17/21 10:58 RDW 16.7 % (13.2-15.2) H 04/17/21 10:58 Plt Count 53 K/mm3 (140-440) L 04/17/21 10:58 Lymph % (Auto) 10.7 % (13.4-35.0) L 03/28/21 09:37 [place] % (Auto) 5.2 % (0.0-7.3) 03/28/21 09:37 Eos % (Auto) Adult Care Provider 04/07/21 03:50 Baso % (Auto) 0.2 % (0.0-1.8) 03/28/21 09:37 Lymph # (Auto) 1.7 K/mm3 (1.2-5.4) 03/28/21 09:37 [place] # (Auto) 0.9 K/mm3 (0.0-0.8) H 03/28/21 09:37 Eos # (Auto) 0.6 K/mm3 (0.0-0.4) H 03/28/21 09:37 Baso # (Auto) 0.0 K/mm3 (0.0-0.1) 03/28/21 09:37 Add Manual Diff Complete 04/17/21 04:42 Total Counted 100 04/17/21 04:42 Seg Neutrophils % 80.0 % (40.0-70.0) H 03/28/21 09:37 Seg Neuts % (Manual) 68.0 % (40.0-70.0) 04/17/21 04:42 Band Neutrophils % 4.0 % 04/17/21 04:42 Lymphocytes % (Manual) 10.0 % (13.4-35.0) L 04/17/21 04:42 Reactive Lymphs % (Man) 2.0 % 04/17/21 04:42 Monocytes % (Manual) 6.0 % (0.0-7.3) 04/17/21 04:42 Eosinophils % (Manual) 3.0 % (0.0-4.3) 04/17/21 04:42 Basophils % (Manual) 2.0 % (0.0-1.8) H 04/03/21 04:30 Metamyelocytes % 6.0 % 04/17/21 04:42 Myelocytes % 1.0 % 04/17/21 04:42 Nucleated RBC % Not Reportable 04/17/21 04:42 Seg Neutrophils # 13.0 K/mm3 (1.8-7.7) H 03/28/21 09:37 Seg Neutrophils # Man 9.6 K/mm3 (1.8-7.7) H 04/17/21 04:42 Band Neutrophils # 0.6 K/mm3 04/17/21 04:42 Lymphocytes # (Manual) 1.4 K/mm3 (1.2-5.4) 04/17/21 04:42 Abs React Lymphs (Man) 0.3 K/mm3 04/17/21 04:42 Monocytes # (Manual) 0.8 K/mm3 (0.0-0.8) 04/17/21 04:42 Eosinophils # (Manual) 0.4 K/mm3 (0.0-0.4) 04/17/21 04:42 Basophils # (Manual) 0.0 K/mm3 (0.0-0.1) 04/17/21 04:42 Metamyelocytes # 0.8 K/mm3 04/17/21 04:42 Myelocytes # 0.1 K/mm3 04/17/21 04:42 Promyelocytes # 0.0 K/mm3 04/17/21 04:42 Blast Cells # 0.0 K/mm3 04/17/21 04:42 WBC Morphology Not Reportable 04/17/21 04:42 Hypersegmented Neuts Not Reportable 04/17/21 04:42 Hyposegmented Neuts Not Reportable 04/17/21 04:42 Hypogranular Neuts Not Reportable 04/17/21 04:42 Smudge Cells Not Reportable 04/17/21 04:42 Toxic Granulation Not Reportable 04/17/21 04:42 Toxic Vacuolation Not Reportable 04/17/21 04:42 Dohle Bodies Not Reportable 04/17/21 04:42 Pelger-Huet Anomaly Not Reportable 04/17/21 04:42 Bridgette Rods Not Reportable 04/17/21 04:42 Platelet Estimate Consistent w auto 04/17/21 04:42 Clumped Platelets Not Reportable 04/17/21 04:42 Plt Clumps, EDTA Not Reportable 04/17/21 04:42 Large Platelets Not Reportable 04/17/21 04:42 Giant Platelets Few 04/17/21 04:42 Platelet Satelliting Not Reportable 04/17/21 04:42 Plt Morphology Comment Not Reportable 04/17/21 04:42 RBC Morphology Not Reportable 04/17/21 04:42 Dimorphic RBCs Not Reportable 04/17/21 04:42 Polychromasia Few 04/17/21 04:42 Hypochromasia Not Reportable 04/17/21 04:42 Poikilocytosis Not Reportable 04/17/21 04:42 Anisocytosis Not Reportable 04/17/21 04:42 Microcytosis Not Reportable 04/17/21 04:42 Macrocytosis Not Reportable 04/17/21 04:42 Spherocytes Few 04/17/21 04:42 Pappenheimer Bodies Not Reportable 04/17/21 04:42 Sickle Cells Not Reportable 04/17/21 04:42 Target Cells Not Reportable 04/17/21 04:42 Tear Drop Cells Not Reportable 04/17/21 04:42 Ovalocytes Not Reportable 04/17/21 04:42 Helmet Cells Not Reportable 04/17/21 04:42 [place] Bodies Not Reportable 04/17/21 04:42 [place] Rings Not Reportable 04/17/21 04:42 [place] Cells Not Reportable 04/17/21 04:42 Bite Cells Not Reportable 04/17/21 04:42 Crenated Cell Not Reportable 04/17/21 04:42 Elliptocytes Not Reportable 04/17/21 04:42 Acanthocytes (Spur) Not Reportable 04/17/21 04:42 Rouleaux Not Reportable 04/17/21 04:42 Hemoglobin C Crystals Not Reportable 04/17/21 04:42 Schistocytes Not Reportable 04/17/21 04:42 Malaria parasites Not Reportable 04/17/21 04:42 Percent Retic 4.52 % (0.78-2.58) H 03/31/21 09:49 Vaibhav Bodies Not Reportable 04/17/21 04:42 Hem Pathologist Commnt No 04/17/21 04:42 PT 17.1 Sec. (12.2-14.9) H 04/17/21 10:58 INR 1.26 (0.87-1.13) H 04/17/21 10:58 APTT 27.5 Sec. (24.2-36.6) 04/17/21 10:58 Fibrinogen 400 mg/dl (211-480) 04/14/21 09:45 D-Dimer 2696.79 ng/mlDDU (0-234) H 04/08/21 04:40 Heparin Anti-Xa, Unfract TNR 03/22/21 08:20 ABG pH 7.294 (7.320-7.450) L 04/17/21 04:10 POC ABG pCO2 51.9 mmHg (32.0-48.0) H 04/17/21 04:10 ABG pCO2 68.6 mm Hg 04/13/21 03:52 POC ABG pO2 102.5 mmHg (83-108) 04/17/21 04:10 ABG pO2 98.9 mm Hg (80.0-90.0) H 04/13/21 03:52 POC ABG HCO3 24.6 04/17/21 04:10 ABG HCO3 25.5 mmol/L (20.0-26.0) 04/13/21 03:52 ABG O2 Saturation 97.1 (0-100) 04/17/21 04:10 ABG O2 Content 10.0 (0.0-44) 04/13/21 03:52 POC ABG Base Excess -1.9 04/17/21 04:10 ABG Base Excess -2.9 mmol/L (-2.0-3.0) L 04/13/21 03:52 ABG Hemoglobin 7.4 (12.0-17.5) L 04/17/21 04:10 ABG Oxyhemoglobin 96.1 (94-98) 04/17/21 04:10 ABG Carboxyhemoglobin 1.9 % (0.0-5.0) 04/13/21 03:52 ABG Methemoglobin 0 (0.0-1.5) 04/17/21 04:10 ABG Sodium 132.3 mmol/L (136.0-145.0) L 04/17/21 04:10 ABG Potassium 5.4 mmol/L (3.40-4.50) H 04/17/21 04:10 ABG Chloride 101.0 mmol/L (98-107) 04/17/21 04:10 ABG Glucose 187 mg/dL (65-95) H 04/17/21 04:10 ABG Lactate Cancelled 04/03/21 20:45 Oxyhemoglobin 94.3 % (95.0-99.0) L 04/13/21 03:52 Carboxyhemoglobin 1.0 (0.5-1.5) 04/17/21 04:10 FiO2 65 % 04/13/21 03:52 FiO2 % 60.0 04/17/21 04:10 Sodium 137 mmol/L (137-145) 04/17/21 10:58 Potassium 5.9 mmol/L (3.6-5.0) H 04/17/21 10:58 Chloride 100.1 mmol/L (98-107) 04/17/21 10:58 Carbon Dioxide 20 mmol/L (22-30) L 04/17/21 10:58 Anion Gap 23 mmol/L 04/17/21 10:58 BUN 112 mg/dL (7-17) H 04/17/21 10:58 Creatinine 3.6 mg/dL (0.6-1.2) H 04/17/21 10:58 Estimated GFR 18 ml/min 04/17/21 10:58 BUN/Creatinine Ratio 31 % 04/17/21 10:58 Glucose 174 mg/dL (65-100) H 04/17/21 10:58 POC Glucose 150 mg/dL (70-105) H 04/17/21 12:25 Hemoglobin A1c 6.3 % (4-6) H 03/15/21 05:09 Lactic Acid 0.80 mmol/L (0.7-2.0) 04/07/21 03:50 Calcium 7.8 mg/dL (8.4-10.2) L 04/17/21 10:58 Phosphorus 7.90 mg/dL (2.5-4.5) H 04/17/21 04:42 Magnesium 2.20 mg/dL (1.7-2.3) 04/17/21 04:42 Ferritin 151.6 ng/mL (10.0-200.0) 03/18/21 04:30 Total Bilirubin 0.30 mg/dL (0.1-1.2) 04/17/21 10:58 Bilirubin Cancelled 04/03/21 20:45 AST 29 units/L (5-40) 04/17/21 10:58 ALT 44 units/L (7-56) 04/17/21 10:58 Alkaline Phosphatase 79 units/L (35-129) 04/17/21 10:58 Lactate Dehydrogenase 394 units/L (91-180) H 04/05/21 05:20 C-Reactive Protein 26.10 mg/dL (0.00-1.30) H 04/08/21 04:00 Total Protein 5.7 g/dL (6.3-8.2) L 04/17/21 10:58 Albumin 2.1 g/dL (3.9-5) L 04/17/21 10:58 Albumin/Globulin Ratio 0.6 % 04/17/21 10:58 Triglycerides 406 mg/dL (2-149) H 04/11/21 04:15 Serotonin Release Assay TNR 03/22/21 08:20 Procalcitonin < 0.05 ng/mL (<0.15) 03/13/21 15:40 HCG, Qual Negative (Negative) 03/13/21 13:26 Arterial Blood Glucose 187 mg/dL (65-95) H 04/17/21 04:10 Arterial Blood Ionized Calcium 4.6 mg/dL (4.6-5.3) 04/15/21 08:20 Urine Color Sweta (Yellow) 04/15/21 18:35 Urine Turbidity Cloudy (Clear) 04/15/21 18:35 Urine pH 5.0 (5.0-7.0) 04/15/21 18:35 Ur Specific [place] 1.025 (1.003-1.030) 04/15/21 18:35 Urine Protein >500 mg/dL (Negative) 04/15/21 18:35 Urine Glucose (UA) Neg mg/dL (Negative) 04/15/21 18:35 Urine Ketones Neg mg/dL (Negative) 04/15/21 18:35 Urine Blood Mod (Negative) 04/15/21 18:35 Urine Nitrite Neg (Negative) 04/15/21 18:35 Urine Bilirubin Neg (Negative) 04/15/21 18:35 Urine Urobilinogen < 2.0 mg/dL (<2.0) 04/15/21 18:35 Ur Leukocyte Esterase Mod (Negative) 04/15/21 18:35 Urine WBC (Auto) 156.0 /HPF (0.0-6.0) H 04/15/21 18:35 Urine RBC (Auto) 56.0 /HPF (0.0-6.0) 04/15/21 18:35 U Epithel Cells (Auto) 15.0 /HPF (0-13.0) H 04/15/21 18:35 Urine Bacteria (Auto) 2+ /HPF (Negative) 04/15/21 18:35 Urine WBC Clumps 3+ /HPF 04/15/21 18:35 Ur Renal Epithelial Cell 151 /LPF 04/06/21 Unknown Urine Mucus Few /HPF 04/15/21 18:35 Urine Yeast (Budding) 3+ /HPF 04/15/21 18:35 Urine Creatinine 40.1 mg/dL (0.1-20.0) H 03/14/21 17:50 Urine Sodium 124 mmol/L 03/14/21 17:50 Random Vancomycin 11.9 ug/mL (0-40.0) 04/15/21 07:05 KIMBERLEY Screen Negative (Negative) 04/07/21 08:27 Heparin-induced Plt Ab Negative (Negative) 03/22/21 08:20 UF Heparin High Dose TNR 03/22/21 08:20 JUAN UFH Low Dose 0.1 TNR 03/22/21 08:20 JUAN UFH Low Dose 0.5 TNR 03/22/21 08:20 Coronavirus (PCR) Negative (Negative) 04/04/21 09:00 Hepatitis A IgM Ab Non-reactive (NonReactive) 03/15/21 05:09 Hep Bs Antigen Nonreactive (Negative) 03/15/21 05:09 Hep B Core IgM Ab Non-reactive (NonReactive) 03/15/21 05:09 Hepatitis C Antibody Non-reactive (NonReactive) 03/15/21 05:09 Schistocytes Smear None seen 03/31/21 12:11 Blood Type O POSITIVE 04/15/21 12:10 Antibody Screen Positive 04/15/21 12:10 Antibody Identification Anti-E 04/15/21 12:10 Direct Antiglob Test Negative 03/31/21 23:18 NIKOLE, Poly Interpret Negative 03/31/21 23:18 Crossmatch See Detail 04/15/21 12:10 Microbiology: Microbiology 04/15/21 11:19 Peripheral/Venous Blood Culture - Preliminary NO GROWTH AFTER 48 HOURS 04/15/21 11:16 Peripheral/Venous Blood Culture - Preliminary NO GROWTH AFTER 48 HOURS 04/15/21 Unknown Urine,Catheterized - Straight Catheter Urine Culture - Preliminary NO GROWTH AFTER 24 HOURS 04/09/21 23:23 Peripheral/Venous Blood Fungal Culture - Preliminary No Fungus Isolated At 1 week 04/09/21 23:23 Peripheral/Venous Blood Fungal Culture - Preliminary No Fungus Isolated At 1 week Bazan/IV: Voiding Method Incontinent Active Medications - Current Medications Current Medications: Generic Name Dose Route Start Last Admin Trade Name Freq PRN Reason Stop Dose Admin Acetaminophen 650 mg 03/31/21 12:41 04/15/21 12:30 Acetaminophen 325 Mg/10.15 Ml Oral Liqd Unit Dose FEEDTUBE 650 mg Q6H PRN Administration TEMP >/=100.4 Albumin Human 25 gm 04/01/21 08:19 04/01/21 16:23 Albumin Human 25% (25 Gm/100 Ml) Inj IV 25 gm KARLOS PRN Administration Hypotension Albuterol 2.5 mg 03/19/21 00:53 Albuterol 2.5 Mg/3 Ml Nebu IH Q4HRT PRN Shortness Of Breath Albuterol/Ipratropium 1 ampul 03/19/21 08:00 04/17/21 15:15 Ipratropium/Albuterol Sulfate 3 Ml Ampul.Neb IH 1 ampul Q6HRT INESSA Administration Lipase/Protease/Amylase 1 each 04/09/21 17:17 Lipase 10,500/Protease 25,000/Amylase 43,750 (Units) Cap FEEDTUBE PRN PRN For Clogged Feeding Tube Calcium Acetate 1,334 mg 04/03/21 20:00 04/17/21 13:32 Calcium Acetate 667 Mg Cap FEEDTUBE 1,334 mg TID INESSA Administration Dextrose 50 ml 03/14/21 11:02 03/15/21 11:40 Dextrose 50% In Water (25gm) 50 Ml Syringe IV 50 ml Q30MIN PRN Administration Hypoglycemia Protocol Famotidine 10 mg 03/17/21 22:00 04/17/21 09:45 Famotidine 10 Mg Tab PO 10 mg BID INESSA Administration Fentanyl 50 mcg 04/15/21 11:48 Fentanyl 100 Mcg/2 Ml Inj IV Q10MIN PRN ANALGESIA Hydrocortisone Sodium Succinate 75 mg 04/15/21 14:00 04/17/21 13:33 Hydrocortisone Sod Succ 100 Mg/2 Ml Vial IV 04/18/21 13:59 75 mg Q8HR INESSA Administration Hydrocortisone Sodium Succinate 50 mg 04/18/21 02:00 Hydrocortisone Sod Succ 100 Mg/2 Ml Vial IV 04/21/21 01:59 Q12H INESSA Hydrocortisone Sodium Succinate 25 mg 04/22/21 10:00 Hydrocortisone Sod Succ 100 Mg/2 Ml Vial IV 04/25/21 09:59 QDAY INESSA Hydrophilic Ointment 1 applic 03/14/21 17:50 Lip Therapy Vaseline TP Q2HR PRN Dry Lips Hydrophilic Ointment 1 applic 04/15/21 13:00 04/17/21 09:45 Aquaphor Ointment TP 1 applic Q12HR INESSA Administration Midazolam HCl 100 mg/ Sodium 100 mls @ 1 mls/hr 03/30/21 15:00 04/16/21 12:46 Chloride IV 4 mg/hr TITR INESSA 4 mls/hr Administration Protocol 1 MG/HR Vasopressin 20 unit/ Sodium 101 mls @ 9.09 mls/hr 03/30/21 20:00 04/16/21 17:57 Chloride IV 0 units/min TITR INESSA 0 mls/hr Infusion 0.03 UNITS/MIN Phenylephrine HCl 100 mg/ 100 mls @ 3 mls/hr 03/31/21 04:00 04/06/21 07:58 Sodium Chloride IV 0 mcg/min TITR INESSA 0 mls/hr Titration Protocol 50 MCG/MIN Sodium Chloride 100 mls @ 999 mls/hr 04/01/21 08:19 Nacl 0.9% IV KARLOS PRN Hypotension Propofol 1,000 mg in 100 mls @ 4.26 mls/hr 04/07/21 13:00 04/12/21 12:52 Diprivan 10 Mg/Ml IV 0 mcg/kg/min TITR INESSA 0 mls/hr Titration Protocol 5 MCG/KG/MIN Sodium Chloride 1,000 mls @ 1 mls/hr 04/14/21 16:45 04/14/21 16:57 Nacl 0.9% 1000 Ml IV 1 mls/hr DIRECT INESSA Administration NORepinephrine/NS 8 MG-250 ML 8 mg in 250 mls @ 3.75 mls/hr 04/15/21 12:00 04/16/21 17:57 Norepinephrine/Ns 8 Mg-250 Ml (Double Conc) IV Infused TITRATE INESSA Titration Protocol 2 MCG/MIN Fentanyl Citrate 2,000 mcg in 100 mls @ 7.1 mls/hr 04/15/21 13:00 04/17/21 15:26 Fentanyl Drip Premix IV 3 mcg/kg/hr TITR INESSA 21.3 mls/hr Administration Protocol 1 MCG/KG/HR Sodium Chloride 100 mls @ 999 mls/hr 04/17/21 10:03 Nacl 0.9% IV KARLOS PRN Hypotension Insulin Human Lispro 0 unit 03/14/21 12:00 04/17/21 13:32 Insulin Lispro 100 Unit/Ml SUB-Q Not Given Q6HR INESSA Protocol Lorazepam 1 mg 03/13/21 19:40 03/30/21 19:58 Lorazepam 2 Mg/Ml Vial IV 1 mg Q4H PRN Administration Anxiety Multi-Ingred Cream/Lotion/Oil/Oint 1 applic 03/14/21 17:50 04/16/21 23:02 Mineral Oil/Petrolatum, White Ophth Oint 3.5 Gm OU 1 applic Q4HR PRN Administration Dry Eye(s) Ondansetron HCl 4 mg 03/13/21 19:30 03/21/21 12:05 Ondansetron 4 Mg/2 Ml Inj IV 4 mg Q8H PRN Administration Nausea And Vomiting Quetiapine Fumarate 300 mg 04/06/21 22:00 04/17/21 09:44 Quetiapine 100 Mg Tab PO 300 mg BID INESSA Administration Senna/Docusate Sodium 1 tab 03/14/21 22:00 04/17/21 09:44 Sennosides/Docusate Sodium 8.6/50 Mg Tab FEEDTUBE 1 tab BID INESSA Administration Simple Syrup 15 ml 04/09/21 17:17 Simple Syrup 15 Ml FEEDTUBE PRN PRN Hypoglycemia Simple Syrup 30 ml 04/09/21 17:17 Simple Syrup 15 Ml FEEDTUBE PRN PRN Hypoglycemia Sodium Bicarbonate 325 mg 04/09/21 17:17 Sodium Bicarbonate 325 Mg Tab FEEDTUBE PRN PRN For Clogged Feeding Tube Sodium Chloride 10 ml 03/13/21 22:00 04/17/21 13:31 Sodium Chloride 0.9% 10 Ml Flush Syringe IV 10 ml BID INESSA Administration Sodium Chloride 10 ml 03/13/21 19:30 04/17/21 05:34 Sodium Chloride 0.9% 10 Ml Flush Syringe IV 10 ml PRN PRN Administration LINE FLUSH Nutrition/Malnutrition Assess - Dietary Evaluation Nutrition/Malnutrition Findings: Nutrition Notes Start: 03/15/21 11:06 Freq: Status: Active Protocol: Document 04/17/21 13:12 CW (Rec: 04/17/21 13:25 CW [id number]) Nutrition Notes Initial or Follow up Reassessment Current Diagnosis Acute Kidney Injury, Hypertension,Respiratory Failure Other Pertinent Diagnosis pneu, Covid 19 Current Diet TF -Glucerna 1.2 Abdullahi (since L 04/14). Labs/Tests K 5.9 bun 112 k 3.6 BG 174 Pertinent Medications Senna Phoslo Solu cortef Height 5 ft 5 in Weight 142 kg [place] Body Weight (kg) 56.81 BMI 52.0 Weight change and time frame Drastic weight increase. Likely inaccurate. Recommend reweight. Subjective/Other Information Kitchen reports not out of Nepro. Will replace Nepro order. RN reports taht NGT placement needs to be verified . Recommend restart TF when medically feasible. RN reports unable to conduct reweight d/ t lack of bed scale. Will base TF off of UBW and adjust accordingly. Percent of energy/protein needs met: 0%/0% Burn Absent Trauma Absent GI Symptoms None Food Allergy No Skin Integrity/Comment Intact Current % PO Negligible Minimum of two criteria No physical signs of malnutrition #1 Nutrition Diagnosis Swallowing difficulty Etiology respiratory failure As Evidenced by Signs and Symptoms Pt on mechancial vent Diagnosis Progress(for reassessment Continues documentation) Is patient on ventilator? Yes Is Patient Ambulatory and/or Out of Bed No REE-([facility]-confined to bed) 2570.232 Kcal/Kg value to use for calculation 14 Approximate Energy Requirements Using 1988 kcal/Kg Calculation Used for Recommendations Kcal/kg Additional Notes protein need: up to 142 fluid needs: 1.5 L or per MD order Nutrition Intervention Change Diet Order: Continue TF when medically feasible Nutrition Support: Nepro at 45 with a free water flush of 120 ml q4h Kcal 1,944 Protein (gm) 88 Fluid (mL) 785 Goal #1 TF tolerance Goal #2 Meet at least 75% of EER via TF Follow-Up By: 04/19/21 Additional Comments F/U fo TF restart and toelrance <SAURABH ALBRECHT - Last Filed: 04/19/21 13:34> Assessment and Plan Assessment and plan: I saw and evaluated the patient. Discussed with the nurse practitioner and agree with their findings and plan as documented in this note. Hospitalist Physical - Constitutional Vitals: Temp Pulse Resp BP Pulse Ox 100.2 F H 131 H 16 128/54 100 04/19/21 12:11 04/19/21 12:42 04/19/21 11:46 04/19/21 12:42 04/19/21 12:42 Results - Labs CBC & Chem 7: 04/19/21 05:00 04/19/21 04:00 Labs: Laboratory Last Values WBC 12.5 K/mm3 (4.5-11.0) H 04/19/21 05:00 RBC 2.79 M/mm3 (3.65-5.03) L 04/19/21 05:00 Hgb 8.6 gm/dl (10.1-14.3) L 04/19/21 05:00 Hct 26.2 % (30.3-42.9) L 04/19/21 05:00 MCV 94 fl (79-97) 04/19/21 05:00 MCH 31 pg (28-32) 04/19/21 05:00 MCHC 33 % (30-34) 04/19/21 05:00 RDW 17.3 % (13.2-15.2) H 04/19/21 05:00 Plt Count 121 K/mm3 (140-440) L 04/19/21 05:00 Lymph % (Auto) 10.7 % (13.4-35.0) L 03/28/21 09:37 [place] % (Auto) 5.2 % (0.0-7.3) 03/28/21 09:37 Eos % (Auto) Adult Care Provider 04/07/21 03:50 Baso % (Auto) 0.2 % (0.0-1.8) 03/28/21 09:37 Lymph # (Auto) 1.7 K/mm3 (1.2-5.4) 03/28/21 09:37 [place] # (Auto) 0.9 K/mm3 (0.0-0.8) H 03/28/21 09:37 Eos # (Auto) 0.6 K/mm3 (0.0-0.4) H 03/28/21 09:37 Baso # (Auto) 0.0 K/mm3 (0.0-0.1) 03/28/21 09:37 Add Manual Diff Complete 04/17/21 04:42 Total Counted 100 04/17/21 04:42 Seg Neutrophils % 80.0 % (40.0-70.0) H 03/28/21 09:37 Seg Neuts % (Manual) 68.0 % (40.0-70.0) 04/17/21 04:42 Band Neutrophils % 4.0 % 04/17/21 04:42 Lymphocytes % (Manual) 10.0 % (13.4-35.0) L 04/17/21 04:42 Reactive Lymphs % (Man) 2.0 % 04/17/21 04:42 Monocytes % (Manual) 6.0 % (0.0-7.3) 04/17/21 04:42 Eosinophils % (Manual) 3.0 % (0.0-4.3) 04/17/21 04:42 Basophils % (Manual) 2.0 % (0.0-1.8) H 04/03/21 04:30 Metamyelocytes % 6.0 % 04/17/21 04:42 Myelocytes % 1.0 % 04/17/21 04:42 Nucleated RBC % Not Reportable 04/17/21 04:42 Seg Neutrophils # 13.0 K/mm3 (1.8-7.7) H 03/28/21 09:37 Seg Neutrophils # Man 9.6 K/mm3 (1.8-7.7) H 04/17/21 04:42 Band Neutrophils # 0.6 K/mm3 04/17/21 04:42 Lymphocytes # (Manual) 1.4 K/mm3 (1.2-5.4) 04/17/21 04:42 Abs React Lymphs (Man) 0.3 K/mm3 04/17/21 04:42 Monocytes # (Manual) 0.8 K/mm3 (0.0-0.8) 04/17/21 04:42 Eosinophils # (Manual) 0.4 K/mm3 (0.0-0.4) 04/17/21 04:42 Basophils # (Manual) 0.0 K/mm3 (0.0-0.1) 04/17/21 04:42 Metamyelocytes # 0.8 K/mm3 04/17/21 04:42 Myelocytes # 0.1 K/mm3 04/17/21 04:42 Promyelocytes # 0.0 K/mm3 04/17/21 04:42 Blast Cells # 0.0 K/mm3 04/17/21 04:42 WBC Morphology Not Reportable 04/17/21 04:42 Hypersegmented Neuts Not Reportable 04/17/21 04:42 Hyposegmented Neuts Not Reportable 04/17/21 04:42 Hypogranular Neuts Not Reportable 04/17/21 04:42 Smudge Cells Not Reportable 04/17/21 04:42 Toxic Granulation Not Reportable 04/17/21 04:42 Toxic Vacuolation Not Reportable 04/17/21 04:42 Dohle Bodies Not Reportable 04/17/21 04:42 Pelger-Huet Anomaly Not Reportable 04/17/21 04:42 Bridgette Rods Not Reportable 04/17/21 04:42 Platelet Estimate Consistent w auto 04/17/21 04:42 Clumped Platelets Not Reportable 04/17/21 04:42 Plt Clumps, EDTA Not Reportable 04/17/21 04:42 Large Platelets Not Reportable 04/17/21 04:42 Giant Platelets Few 04/17/21 04:42 Platelet Satelliting Not Reportable 04/17/21 04:42 Plt Morphology Comment Not Reportable 04/17/21 04:42 RBC Morphology Not Reportable 04/17/21 04:42 Dimorphic RBCs Not Reportable 04/17/21 04:42 Polychromasia Few 04/17/21 04:42 Hypochromasia Not Reportable 04/17/21 04:42 Poikilocytosis Not Reportable 04/17/21 04:42 Anisocytosis Not Reportable 04/17/21 04:42 Microcytosis Not Reportable 04/17/21 04:42 Macrocytosis Not Reportable 04/17/21 04:42 Spherocytes Few 04/17/21 04:42 Pappenheimer Bodies Not Reportable 04/17/21 04:42 Sickle Cells Not Reportable 04/17/21 04:42 Target Cells Not Reportable 04/17/21 04:42 Tear Drop Cells Not Reportable 04/17/21 04:42 Ovalocytes Not Reportable 04/17/21 04:42 Helmet Cells Not Reportable 04/17/21 04:42 [place] Bodies Not Reportable 04/17/21 04:42 [place] Rings Not Reportable 04/17/21 04:42 [place] Cells Not Reportable 04/17/21 04:42 Bite Cells Not Reportable 04/17/21 04:42 Crenated Cell Not Reportable 04/17/21 04:42 Elliptocytes Not Reportable 04/17/21 04:42 Acanthocytes (Spur) Not Reportable 04/17/21 04:42 Rouleaux Not Reportable 04/17/21 04:42 Hemoglobin C Crystals Not Reportable 04/17/21 04:42 Schistocytes Not Reportable 04/17/21 04:42 Malaria parasites Not Reportable 04/17/21 04:42 Percent Retic 4.52 % (0.78-2.58) H 03/31/21 09:49 Vaibhav Bodies Not Reportable 04/17/21 04:42 Hem Pathologist Commnt No 04/17/21 04:42 PT 17.1 Sec. (12.2-14.9) H 04/17/21 10:58 INR 1.26 (0.87-1.13) H 04/17/21 10:58 APTT 27.5 Sec. (24.2-36.6) 04/17/21 10:58 Fibrinogen 400 mg/dl (211-480) 04/14/21 09:45 D-Dimer 2696.79 ng/mlDDU (0-234) H 04/08/21 04:40 Heparin Anti-Xa, Unfract Negative (Negative) 04/14/21 09:45 ABG pH 7.301 (7.320-7.450) L 04/19/21 03:09 POC ABG pCO2 48.7 mmHg (32.0-48.0) H 04/19/21 03:09 ABG pCO2 68.6 mm Hg 04/13/21 03:52 POC ABG pO2 82.1 mmHg (83-108) L 04/19/21 03:09 ABG pO2 98.9 mm Hg (80.0-90.0) H 04/13/21 03:52 POC ABG HCO3 23.5 04/19/21 03:09 ABG HCO3 25.5 mmol/L (20.0-26.0) 04/13/21 03:52 ABG O2 Saturation 94.9 (0-100) 04/19/21 03:09 ABG O2 Content 10.0 (0.0-44) 04/13/21 03:52 POC ABG Base Excess -2.9 04/19/21 03:09 ABG Base Excess -2.9 mmol/L (-2.0-3.0) L 04/13/21 03:52 ABG Hemoglobin 8.9 (12.0-17.5) L 04/19/21 03:09 ABG Oxyhemoglobin 93.8 (94-98) L 04/19/21 03:09 ABG Carboxyhemoglobin 1.9 % (0.0-5.0) 04/13/21 03:52 ABG Methemoglobin 0.1 (0.0-1.5) 04/19/21 03:09 ABG Sodium 133.9 mmol/L (136.0-145.0) L 04/19/21 03:09 ABG Potassium 5.2 mmol/L (3.40-4.50) H 04/19/21 03:09 ABG Chloride 101.0 mmol/L (98-107) 04/19/21 03:09 ABG Glucose 126 mg/dL (65-95) H 04/19/21 03:09 ABG Lactate Cancelled 04/03/21 20:45 Oxyhemoglobin 94.3 % (95.0-99.0) L 04/13/21 03:52 Carboxyhemoglobin 1.1 (0.5-1.5) 04/19/21 03:09 FiO2 65 % 04/13/21 03:52 FiO2 % 40.0 04/19/21 03:09 Sodium 138 mmol/L (137-145) 04/19/21 04:00 Potassium 5.3 mmol/L (3.6-5.0) H 04/19/21 04:00 Chloride 100.3 mmol/L (98-107) 04/19/21 04:00 Carbon Dioxide 24 mmol/L (22-30) 04/19/21 04:00 Anion Gap 19 mmol/L 04/19/21 04:00 BUN 102 mg/dL (7-17) H 04/19/21 04:00 Creatinine 3.2 mg/dL (0.6-1.2) H 04/19/21 04:00 Estimated GFR 21 ml/min 04/19/21 04:00 BUN/Creatinine Ratio 32 % 04/19/21 04:00 Glucose 116 mg/dL (65-100) H 04/19/21 04:00 POC Glucose 118 mg/dL (70-105) H 04/19/21 11:18 Hemoglobin A1c 6.3 % (4-6) H 03/15/21 05:09 Lactic Acid 0.80 mmol/L (0.7-2.0) 04/07/21 03:50 Calcium 8.2 mg/dL (8.4-10.2) L 04/19/21 04:00 Phosphorus 6.50 mg/dL (2.5-4.5) H 04/18/21 04:55 Magnesium 2.00 mg/dL (1.7-2.3) 04/18/21 04:55 Ferritin 151.6 ng/mL (10.0-200.0) 03/18/21 04:30 Total Bilirubin 0.30 mg/dL (0.1-1.2) 04/17/21 10:58 Bilirubin Cancelled 04/03/21 20:45 AST 29 units/L (5-40) 04/17/21 10:58 ALT 44 units/L (7-56) 04/17/21 10:58 Alkaline Phosphatase 79 units/L (35-129) 04/17/21 10:58 Lactate Dehydrogenase 394 units/L (91-180) H 04/05/21 05:20 C-Reactive Protein 26.10 mg/dL (0.00-1.30) H 04/08/21 04:00 Total Protein 5.7 g/dL (6.3-8.2) L 04/17/21 10:58 Albumin 2.1 g/dL (3.9-5) L 04/17/21 10:58 Albumin/Globulin Ratio 0.6 % 04/17/21 10:58 Triglycerides 406 mg/dL (2-149) H 04/11/21 04:15 Serotonin Release Assay TNR 03/22/21 08:20 Procalcitonin < 0.05 ng/mL (<0.15) 03/13/21 15:40 HCG, Qual Negative (Negative) 03/13/21 13:26 Arterial Blood Glucose 126 mg/dL (65-95) H 04/19/21 03:09 Arterial Blood Ionized Calcium 4.4 mg/dL (4.6-5.3) L 04/18/21 00:08 Urine Color Sweta (Yellow) 04/15/21 18:35 Urine Turbidity Cloudy (Clear) 04/15/21 18:35 Urine pH 5.0 (5.0-7.0) 04/15/21 18:35 Ur Specific [place] 1.025 (1.003-1.030) 04/15/21 18:35 Urine Protein >500 mg/dL (Negative) 04/15/21 18:35 Urine Glucose (UA) Neg mg/dL (Negative) 04/15/21 18:35 Urine Ketones Neg mg/dL (Negative) 04/15/21 18:35 Urine Blood Mod (Negative) 04/15/21 18:35 Urine Nitrite Neg (Negative) 04/15/21 18:35 Urine Bilirubin Neg (Negative) 04/15/21 18:35 Urine Urobilinogen < 2.0 mg/dL (<2.0) 04/15/21 18:35 Ur Leukocyte Esterase Mod (Negative) 04/15/21 18:35 Urine WBC (Auto) 156.0 /HPF (0.0-6.0) H 04/15/21 18:35 Urine RBC (Auto) 56.0 /HPF (0.0-6.0) 04/15/21 18:35 U Epithel Cells (Auto) 15.0 /HPF (0-13.0) H 04/15/21 18:35 Urine Bacteria (Auto) 2+ /HPF (Negative) 04/15/21 18:35 Urine WBC Clumps 3+ /HPF 04/15/21 18:35 Ur Renal Epithelial Cell 151 /LPF 04/06/21 Unknown Urine Mucus Few /HPF 04/15/21 18:35 Urine Yeast (Budding) 3+ /HPF 04/15/21 18:35 Urine Creatinine 40.1 mg/dL (0.1-20.0) H 03/14/21 17:50 Urine Sodium 124 mmol/L 03/14/21 17:50 Random Vancomycin 11.9 ug/mL (0-40.0) 04/15/21 07:05 KIMBERLEY Screen Negative (Negative) 04/07/21 08:27 Heparin-induced Plt Ab Positive (Negative) H 04/14/21 09:45 UF Heparin High Dose 0 % Release 04/14/21 09:45 JUAN UFH Low Dose 0.1 1 % Release 04/14/21 09:45 JUAN UFH Low Dose 0.5 0 % Release 04/14/21 09:45 Coronavirus (PCR) Negative (Negative) 04/04/21 09:00 Hepatitis A IgM Ab Non-reactive (NonReactive) 03/15/21 05:09 Hep Bs Antigen Nonreactive (Negative) 03/15/21 05:09 Hep B Core IgM Ab Non-reactive (NonReactive) 03/15/21 05:09 Hepatitis C Antibody Non-reactive (NonReactive) 03/15/21 05:09 Schistocytes Smear None seen 03/31/21 12:11 Blood Type O POSITIVE 04/15/21 12:10 Antibody Screen Positive 04/15/21 12:10 Antibody Identification Anti-E 04/15/21 12:10 Direct Antiglob Test Negative 03/31/21 23:18 NIKOLE, Poly Interpret Negative 03/31/21 23:18 Crossmatch See Detail 04/15/21 12:10 Microbiology: Microbiology 04/15/21 11:19 Peripheral/Venous Blood Culture - Preliminary NO GROWTH AFTER 4 DAYS 04/15/21 11:16 Peripheral/Venous Blood Culture - Preliminary NO GROWTH AFTER 4 DAYS 04/15/21 Unknown Urine,Catheterized - Straight Catheter Urine Culture - Final NO GROWTH AFTER 48 HOURS Bazan/IV: Voiding Method Incontinent Active Medications - Current Medications Current Medications: Generic Name Dose Route Start Last Admin Trade Name Freq PRN Reason Stop Dose Admin Acetaminophen 650 mg 03/31/21 12:41 04/19/21 05:37 Acetaminophen 325 Mg/10.15 Ml Oral Liqd Unit Dose FEEDTUBE 650 mg Q6H PRN Administration TEMP >/=100.4 Albumin Human 25 gm 04/01/21 08:19 04/01/21 16:23 Albumin Human 25% (25 Gm/100 Ml) Inj IV 25 gm KARLOS PRN Administration Hypotension Albuterol 2.5 mg 03/19/21 00:53 Albuterol 2.5 Mg/3 Ml Nebu IH Q4HRT PRN Shortness Of Breath Albuterol/Ipratropium 1 ampul 03/19/21 08:00 04/19/21 08:31 Ipratropium/Albuterol Sulfate 3 Ml Ampul.Neb IH 1 ampul Q6HRT INESSA Administration Lipase/Protease/Amylase 1 each 04/09/21 17:17 Lipase 10,500/Protease 25,000/Amylase 43,750 (Units) Cap FEEDTUBE PRN PRN For Clogged Feeding Tube Calcium Acetate 1,334 mg 04/03/21 20:00 04/19/21 13:33 Calcium Acetate 667 Mg Cap FEEDTUBE 1,334 mg TID INESSA Administration Dextrose 50 ml 03/14/21 11:02 03/15/21 11:40 Dextrose 50% In Water (25gm) 50 Ml Syringe IV 50 ml Q30MIN PRN Administration Hypoglycemia Protocol Famotidine 10 mg 03/17/21 22:00 04/19/21 13:25 Famotidine 10 Mg Tab PO Not Given BID IENSSA Fentanyl 50 mcg 04/15/21 11:48 04/18/21 18:58 Fentanyl 100 Mcg/2 Ml Inj IV 50 mcg Q10MIN PRN Administration ANALGESIA Hydrocortisone Sodium Succinate 50 mg 04/18/21 10:00 04/19/21 13:33 Hydrocortisone Sod Succ 100 Mg/2 Ml Vial IV 04/21/21 22:01 50 mg Q12H INESSA Administration Hydrocortisone Sodium Succinate 25 mg 04/22/21 10:00 Hydrocortisone Sod Succ 100 Mg/2 Ml Vial IV 04/25/21 09:59 QDAY INESSA Hydrophilic Ointment 1 applic 03/14/21 17:50 04/18/21 19:02 Lip Therapy Vaseline TP 1 applic Q2HR PRN Administration Dry Lips Hydrophilic Ointment 1 applic 04/15/21 13:00 04/19/21 10:49 Aquaphor Ointment TP 1 applic Q12HR INESSA Administration Midazolam HCl 100 mg/ Sodium 100 mls @ 1 mls/hr 03/30/21 15:00 04/19/21 05:32 Chloride IV 7 mg/hr TITR INESSA 7 mls/hr Administration Protocol 1 MG/HR Vasopressin 20 unit/ Sodium 101 mls @ 9.09 mls/hr 03/30/21 20:00 04/18/21 02:04 Chloride IV 0.03 units/min TITR INESSA 9.09 mls/hr Administration 0.03 UNITS/MIN Phenylephrine HCl 100 mg/ 100 mls @ 3 mls/hr 03/31/21 04:00 04/06/21 07:58 Sodium Chloride IV 0 mcg/min TITR INESSA 0 mls/hr Titration Protocol 50 MCG/MIN Propofol 1,000 mg in 100 mls @ 4.26 mls/hr 04/07/21 13:00 04/12/21 12:52 Diprivan 10 Mg/Ml IV 0 mcg/kg/min TITR INESSA 0 mls/hr Titration Protocol 5 MCG/KG/MIN Sodium Chloride 1,000 mls @ 1 mls/hr 04/14/21 16:45 04/14/21 16:57 Nacl 0.9% 1000 Ml IV 1 mls/hr DIRECT INESSA Administration NORepinephrine/NS 8 MG-250 ML 8 mg in 250 mls @ 3.75 mls/hr 04/15/21 12:00 04/19/21 08:20 Norepinephrine/Ns 8 Mg-250 Ml (Double Conc) IV 3 mcg/min TITRATE INESSA 5.625 mls/hr Titration Protocol 2 MCG/MIN Fentanyl Citrate 2,000 mcg in 100 mls @ 7.1 mls/hr 04/15/21 13:00 04/19/21 13:33 Fentanyl Drip Premix IV 4 mcg/kg/hr TITR INESSA 28.4 mls/hr Administration Protocol 1 MCG/KG/HR Sodium Chloride 100 mls @ 999 mls/hr 04/18/21 14:26 Nacl 0.9% IV KARLOS PRN Hypotension Insulin Human Lispro 0 unit 03/14/21 12:00 04/19/21 13:25 Insulin Lispro 100 Unit/Ml SUB-Q Not Given Q6HR INESSA Protocol Lorazepam 1 mg 03/13/21 19:40 04/18/21 18:58 Lorazepam 2 Mg/Ml Vial IV 1 mg Q4H PRN Administration Anxiety Multi-Ingred Cream/Lotion/Oil/Oint 1 applic 03/14/21 17:50 04/16/21 23:02 Mineral Oil/Petrolatum, White Ophth Oint 3.5 Gm OU 1 applic Q4HR PRN Administration Dry Eye(s) Ondansetron HCl 4 mg 03/13/21 19:30 03/21/21 12:05 Ondansetron 4 Mg/2 Ml Inj IV 4 mg Q8H PRN Administration Nausea And Vomiting Quetiapine Fumarate 300 mg 04/06/21 22:00 04/19/21 10:48 Quetiapine 100 Mg Tab PO 300 mg BID INESSA Administration Senna/Docusate Sodium 1 tab 03/14/21 22:00 04/19/21 10:48 Sennosides/Docusate Sodium 8.6/50 Mg Tab FEEDTUBE 1 tab BID INESSA Administration Simple Syrup 15 ml 04/09/21 17:17 Simple Syrup 15 Ml FEEDTUBE PRN PRN Hypoglycemia Simple Syrup 30 ml 04/09/21 17:17 Simple Syrup 15 Ml FEEDTUBE PRN PRN Hypoglycemia Sodium Bicarbonate 325 mg 04/09/21 17:17 Sodium Bicarbonate 325 Mg Tab FEEDTUBE PRN PRN For Clogged Feeding Tube Sodium Chloride 10 ml 03/13/21 22:00 04/19/21 10:53 Sodium Chloride 0.9% 10 Ml Flush Syringe IV 10 ml BID INESSA Administration Sodium Chloride 10 ml 03/13/21 19:30 04/17/21 05:34 Sodium Chloride 0.9% 10 Ml Flush Syringe IV 10 ml PRN PRN Administration LINE FLUSH Nutrition/Malnutrition Assess - Dietary Evaluation Nutrition/Malnutrition Findings: Nutrition Notes Start: 03/15/21 11:06 Freq: Status: Active Protocol: Document 04/17/21 13:12 CW (Rec: 04/17/21 13:25 CW [id number]) Nutrition Notes Initial or Follow up Reassessment Current Diagnosis Acute Kidney Injury, Hypertension,Respiratory Failure Other Pertinent Diagnosis pneu, Covid 19 Current Diet TF -Glucerna 1.2 Abdullahi (since L 04/14). Labs/Tests K 5.9 bun 112 k 3.6 BG 174 Pertinent Medications Senna Phoslo Solu cortef Height 5 ft 5 in Weight 142 kg [place] Body Weight (kg) 56.81 BMI 52.0 Weight change and time frame Drastic weight increase. Likely inaccurate. Recommend reweight. Subjective/Other Information Kitchen reports not out of Nepro. Will replace Nepro order. RN reports taht NGT placement needs to be verified . Recommend restart TF when medically feasible. RN reports unable to conduct reweight d/ t lack of bed scale. Will base TF off of UBW and adjust accordingly. Percent of energy/protein needs met: 0%/0% Burn Absent Trauma Absent GI Symptoms None Food Allergy No Skin Integrity/Comment Intact Current % PO Negligible Minimum of two criteria No physical signs of malnutrition #1 Nutrition Diagnosis Swallowing difficulty Etiology respiratory failure As Evidenced by Signs and Symptoms Pt on mechancial vent Diagnosis Progress(for reassessment Continues documentation) Is patient on ventilator? Yes Is Patient Ambulatory and/or Out of Bed No REE-([place]-confined to bed) 2570.232 Kcal/Kg value to use for calculation 14 Approximate Energy Requirements Using 1988 kcal/Kg Calculation Used for Recommendations Kcal/kg Additional Notes protein need: up to 142 fluid needs: 1.5 L or per MD order Nutrition Intervention Change Diet Order: Continue TF when medically feasible Nutrition Support: [place] at 46 with a free water flush of 120 ml q4h Kcal 1,944 Protein (gm) 88 Fluid (mL) 785 Goal #1 TF tolerance Goal #2 Meet at least 75% of EER via TF Follow-Up By: 04/19/21 Additional Comments F/U fo TF restart and [place]
[2021-04-17] MEDS: VASOPRESSIN 20 UNIT in SODIUM CHLORIDE 0.9% 100 ML IV SCH (16:24)
[2021-04-17] MEDS: MIDAZOLAM 100 MG in SODIUM CHLORIDE 0.9% 80 ML IV SCH (20:01)
[2021-04-18] MEDS: INSULIN LISPRO 100 UNIT/ML SUB-Q SCH ×4 (00:12→18:00)
[2021-04-18] MEDS ORDERED: LORazepam 2 MG/ML VIAL IV ONE (00:33)
[2021-04-18] MEDS: fentaNYL DRIP Premix 2,000 MCG/100 ML BAG IV SCH ×7 (00:41→22:18)
[2021-04-18] MEDS: ACETAMINOPHEN 325 MG/10.15 ML ORAL LIQD UNIT DOSE FEEDTUBE PRN ×2 (00:42→12:01)
[2021-04-18] MEDS: NORepinephrine/NS 8 MG-250 ML 8 MG/250 ML INFUS..BTL IV SCH (01:40)
[2021-04-18] MEDS: VASOPRESSIN 20 UNIT in SODIUM CHLORIDE 0.9% 100 ML IV SCH (02:04)
[2021-04-18] MEDS: IPRATROPIUM/ALBUTEROL SULFATE 3 ML AMPUL.NEB IH SCH ×4 (02:44→19:35)
[2021-04-18] MEDS ORDERED: SODIUM CHLORIDE 0.9% 500 ML 500 ML ONE (05:09)
[2021-04-18 05:10] LABS: Hematocrit 23.6 % (30.3-42.9); Hemoglobin 7.9 gm/dl (10.1-14.3); Mean Corpuscular HGB Conc 33 % (30-34); Mean Corpuscular Volume 93 fl (79-97); Red Blood Count 2.55 M/mm3 (3.65-5.03); Red Cell Distribution Width 16.1 % (13.2-15.2)
[2021-04-18 05:11] LABS: Platelet Count 99 K/mm3 (140-440)
[2021-04-18 06:30] LABS: Calcium 8.2 mg/dL (8.4-10.2)
[2021-04-18] MEDS: MIDAZOLAM 100 MG in SODIUM CHLORIDE 0.9% 80 ML IV SCH ×2 (06:45→19:32)
[2021-04-18] MEDS ORDERED: FREE WATER PO SCH (08:00)
[2021-04-18] MEDS: AQUAPHOR OINTMENT TP SCH (10:00)
[2021-04-18] MEDS: CALCIUM ACETATE 667 MG CAP FEEDTUBE SCH ×3 (10:07→21:19)
[2021-04-18] MEDS: QUEtiapine 100 MG TAB PO SCH ×2 (10:07→21:19)
[2021-04-18] MEDS: SENNOSIDES/DOCUSATE SODIUM 8.6/50 MG TAB FEEDTUBE SCH ×2 (10:07→21:25)
[2021-04-18] MEDS: FAMOTIDINE 10 MG TAB PO SCH ×2 (10:08→21:19)
[2021-04-18] MEDS: HYDROCORTISONE SOD SUCC 100 MG/2 ML VIAL IV SCH ×2 (10:08→21:19)
[2021-04-18] MEDS: FREE WATER PO SCH ×4 (10:09→21:25)
--- NOTE | 2021-04-18 11:38 | Progress Note ---
<CRISTY PASCUAL - Last Filed: 04/18/21 11:32> Assessment and Plan Assessment and plan: This is a 31-year-old female with asthma, morbid obesity and Crohn's disease admitted for COVID-19 pneumonia and and acute renal failure Neuro: Sedated -Intubated and sedated with propofol, fentanyl, Versed -sedation to vent synchrony -Seroquel -As needed ECG for QTC monitoring -Daily SAT/SBT when appropriate -Maintain sleep-wake cycle -Avoid delirium -CT head with no acute abnormality CV: Tachycardia, s/p hypertension now with hypotension -ST on the monitor -Vasopressor support with levophed, vasopressin (wean off as tolerated) -Maintain MAP above 65 -Blood pressure monitoring via keesha Respiratory: Acute hypoxic respiratory failure, s/p asthma exacerbation, COVID- 19 pneumonia, ARDS, RUL PNA, bronchospasm (resolved) -Patient was intubated on 03/14 for respiratory distress and inability to protect airway with her ETT exchange on 04/11 -plan to consult surgery next week for trach/peg -Intubated with 7.50 ETT at 24 at the lip -A.m. vent settings: AC/PCV rate 30, FiO2 50%, PEEP 10 -See RT notes for titration -ABGs per CCM -VAP bundle -SPO2 monitoring -CCM/pulmonary consulted, appreciate recommendations -S/p BiPAP therapy -S/p Bronc on 04/11 which showed alveolar hemorrhage GI: h/o MO and Crohn's disease -Nutrition consulted, appreciate recommendations -Tube feeding: Nepro -Free water 100 mL every 4 hours -BR: [place] -PPI -24 hours +1700 ml -HD removal 1L yesterday : Acute kidney injury likely secondary to Acute tubular necrosis which progressed to HD, hyperkalemia, hyperphosphatemia -Nephrology consulted, appreciate recommendations -Vas-Cath placed 03/15 -HD initiated 03/15 -Daily weights -Strict intake and output -Avoid nephrotoxic medications -Renally dose medications -Trend BMP -Intervene for electrolytes as needed -HD per nephrology -s/p Bicarb gtt -phos binders PO ID: COVID-19 pneumonia, leukocytosis, Staph aureus in tracheal aspirate, Conjunctival hemorrhage, ?HUS vs drug reaction, -Infectious disease consulted, appreciate recommendations -03/14 COVID-19 PCR (+), 04/10 COVID PCR (-) -1 g of methylprednisone for 3 days (03/31 through 04/02 with taper) -Restarted on stress dose steroids on 04/10 -started taper 04/15 (decrease by 25mg) -s/p Actemra per ID -Per ID patient is on a candidate for remdesivir due to renal failure -Patient received 1 dose of remdesivir on 03/14 -s/p Cipro/Dex drops for 5 days -Abx per ID: Levaquin, Merrem, micafungin -Trend COVID- inflammatory markers -s/p Isolation/droplet precautions for 21 days -Vitamin C/vitamin D/zinc -follow culture data -Monitor WBC and fever curve -s/p plasmapheresis x2 (04/01-04/02) -LDH 509, Eliezer, fibrinogen 491 -s/p Artic sun for temp regulation -04/13 given 1g solumedoral x1 for possible anaphylaxis reaction post contrast -benadryl q6 for 3 days (04/13-04/14) Heme: Leukocytosis, elevated D-dimer, thrombocytopenia, anemia requiring transfu sions, HIT positive -Trend CBC -Transfuse hemoglobin less than 7 -withholding chemical anticoagulation at this time d/t bleeding and low plts -SCDs to bilateral lower extremity while in bed -BLE duplex US shows no DVT -03/22 HIT negative, 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 The aggregate critical care time was [60] minutes. This time is in addition to time spent performing reported procedures but includes the following: [x] Data Review and interpretation [x] Patient assessment and monitoring of vital signs [x] Documentation [x] Medication orders and management Disposition Plan: icu Total Time Spent with Patient (Minutes): 60 History Interval history: This is a 31-year-old female with asthma, history of prior intubation x1 in 02/2019, morbid obesity and Crohn's disease who presented to the emergency department on 03/13 with complaints of severe wheezing and shortness of breath over the past 4 days which is not relieved by home nebulizer treatments or rescue inhalers, cough without fever and no loss of sense of taste or smell. Patient is currently on vaccinated for COVID-19. In the emergency department patient was placed on BiPAP given steroids magnesium Solu-Medrol with improveme nt, CXR shows a streak of possible pneumonia. Patient was made a COVID-19 PUI and admitted to the hospital service. Patient was initially admitted to [facility] on BiPAP and was subsequently intubated due to severe respiratory distress and inability to protect her airway. Patient was admitted with acute hypoxic respiratory failure, acute asthma exacerbation, right upper lobe pneumonia, and as a COVID-19 PUI. Hospital Course to Date: 03/14/21- Patient is s/p intubation from this morning, sedated on propofol and fentanyl RASS -3 to -4. ETT above the clavicles advanced by 2cc. Continue nebs and IV steroids per [facility]. COVID swab pending. Hyperkalemia improved, X1 dose of kayaxalate ordered. Low BP and low urine output this am, fluid bolus challenge, 500cc of NS bolus given. Continue to monitor electrolytes and renal function, repeat BMP this afternoon. 03/15: Patient's renal function noted to be significantly worse today, patient was hyperkalemic and this was medically treated. Patient initiated on hemodialysis today. infectious disease was consulted today. 03/16: No acute events reported overnight, patient received hemodialysis yesterday. Patient is currently on propofol and fentanyl. 03/17: Patient received hemodialysis today, patient is slightly acidotic on ABG however [facility] is allowing for permissive hypercapnia, tracheal aspirate with Staph aureus and ID is aware. 03/18: Patient is having high residuals today and Reglan was started, patient will receive HD daily per nephrology, correct her change in FiO2 as tolerated. 03/19: HD per nephrology today, antibiotics changed to cefazolin. Patient did not tolerate tube feedings as she had high residuals this morning and they were turned off. Not restarted yet. Updated family at bedside today 03/20: HD today, ddimer noted to be >1000, Tolerating trickle TF. Stat BLE dopplar US 03/21: Patient is not tolerating TF, CXR shows worsening infiltrates, [facility] made changes to vent, TF on hold and started on IVF. 03/22/21- Patient remains intubated and on sedation. Persistent vomiting, TF held overnight, no documented BM, on reglan BR added, Shaun citarte & supp. HD today. Plan to restart TF at 10ml/hr, will reevaluate in the am. Persistent thrombocytopenia, Hep on hold, HIT panel ordered, PO eliquis initiated. 03/23/21- Patient remains on the vent and sedated on propofol and fentanyl RASS - 2 to -3. Possible SAT today as tolerated. Patient tolerated trickle feeds overnight, plan to advance TF by 10cc Q8 to 12hrs. Continue current BR and continue reglan for now. Slightr worsening in acidosis from this am, d/w [facility] vent setting adjusted, will repeat ABG at 9pm. 03/24/21- Patient is on the vent and sedated, on fentanyl and propfol. Bilateral subconjunctival hemorrhage with periorbital edema noted this am, pupils are round and reactive, will Cipro/Dex [id number]. Worsening of kidney function from today's labs, plan for HD per Nephro. 03/25/21- Patient remains intubated and on sedatin, RASS 0 to -1, no longer on pressors. Sudden drop in H&H this am, bilateral subconjunctival hemorrhage with no sig change, no signs of any active bleeding. Patient appears neurologically intact, following commands, pupils are round and reactive with + gag and cough, moved all extremities. D/w [facility] patient is too unstable for CT at this time. Eliquis D/Devaughn, 1unit of PRBC ordered. Will continue to trend CBC. Plan for another section of HD today 03/26/21- Patient remains on the vent and sedated. VENICE reported from overnight. Plan for HD again today. H&H back up and stable, no AC at this time, SCDs for VTE phro. D/w [facility] patient is still too unstable for CT scan, will continue neuro exam and will continue to monitor H&H. 03/27/21- VENICE overnight. remains on the vent and sedated. Red localized rashes noted in patient upper chest and face, will r/o allergic reaction,CBC with auto diff and urine eosinophils ordered. Plan for HD today per Nephro. 03/28/21- Patient remains on the vent and sedated. Persistent fevers overnight unrelieved with antipyretic, currently on a cooling blanket. Back on pressors for hypotension, patient already on IV abx, last blood cultureX2 and sputum culture from 03/23 were negative. Continue IV abx, will reculture patient, orders placed for B.culture and sputum culture. ID is also on consult. will continue F/u on culture and continue to monitor BMP and CBC. 03/29: Patient restarted on prednisone given splotchy rash, will resume apixaban for VTE prophylaxis and repeat ABG at 9 PM. Remains with leukocytosis, elevated BUN/creatinine, elevated triglycerides and on Levophed 03/30: HD today, rash is still present and started on IV steroids. plt is low today but will continue to monitor. CCM made changes to vent-> decrease in MV. ABG in the pm and possible punch biopsy tomorrow if rash is not improved. propofol changed to versed 03/31: Heme/oncology consulted yesterday, will start patient on plasmapheresis for possible HUS. Cefepime discontinued today as today was the last day. Patient started on pulse dose steroids of 1 g/day for 3 days. Some improvement noted to eyes this morning. Patient was febrile overnight and received ibuprofen overnight. Acetaminophen allergy confirmed with family, allergy is only to oxycodone and hydrocodone but not the acetaminophen component. Conf irmed by family patient has no reaction to [id number] Tylenol. Remains on vasopressor support and sedated with fentanyl, propofol and Versed. Vent mode changed to pressure control ventilation. Patient started on Arctic sun for fever control. Mother updated over telephone this a.m. and this p.m. family meeting held with her mother, sister x 2 and brother and with 2 other unknown people over the phone (1 female and one male) and nurse. Family states that patient is likely to an antibiotic possibly penicillins. This information was not available to us before. 04/01: Hyperkalemia medically treated, patient scheduled for dialysis today, plasmapheresis for possible HUS scheduled for today, steroids should be ending tomorrow, generalized rash/discoloration minimally better. Patient still remains on Arctic sun for temperature regulation. Vent changes per [facility]. 04/02: plasma exchange, tessa on sedatives and vasopressor support, HD for ultrafiltration 04/03: remains on artic sun but water temp noted to be in the 30s today. Completed plasmapheresis x2 and is now on steroid taper however minimal change noted to rash/discoloration. Eyes are more clear today but remain red under lids (tops of eye). Acidosis noted on ABG. Hyperkalemia and hyperphosphatemeia persists. Sedation increased for RR in to the 40s-50s and vasopressors being titrated as tolerated. 04/04: Patient receiving 1 unit PRBC per heme's recommendation, increased respiratory effort noted, patient is acidotic on ABG and given 1 amp of bicarb in addition to bicarb drip, sedation increased for vent synchrony. No HD per nephrology given tachycardia. Seroquel started. 04/05: Patient on the vent and sedated, still on 3 pressors. Patient to wean off propofol gtt, seroquel increased. Patient afebrile overnight, however artic sun is still in place. Will attempt to take off the cooling blanket today, will co ntinue to assess for fever curve. Continue current IV Abx therapy per ID. Plan for HD today per Nephro. Patient's family at the bedside, thoroughly discussed patient's condition and overall poor prognosis. All questions and concerns were addressed. Team will continue to f/u with family with further updates. 04/06: Patient remains sedated and on the vent, still on fent and versed, propofol was weaned off. Low Hbg this am, 2 units of PRBCs ordered. Patient febrile overnight, patient completed IV abx course, leukocytosis downtrending. c/f for possible drug fever vs DVT, BLE doppler reordered to R/O DVT. Patient remains on high dose pressors, wean pressors as tolerated for MAP of 65. 04/07: Patient appears to be in distress thi am, tachypneic and tachycardic, with increased work of breathing. Propofol stopped this am. IV push versed given and versed gtt was increased to max. D/w CCM plan to possibly restart propofol since patient is not tolerating sedation wean. Patient remains febrile t hroughout, pancultured yesterday by ID and IV abx was restarted. Overall poor prognosis at this time. Patient's mother and siblings at the bedside were update on patient's status. Plan for possible family meeting with the care team Monday. 04/08: Patient with worsening CXR this am, increased of vent setting overnight, respiratory acidosis from this am ABG. Patient remains febrile, IV ABx switched to Merrem for VAP coverage, ID is following. Patient remains on sedation and on pressors. Low hemoglobin this am, 1unit of PRBCs ordered. Hyperkalemia noted, per Nephro it is stable no intervention at this time plan for HD tomorrow. Spoke with patient's mom, meeting postponed for possibly next week, case management to arrange. Hospitalist also called and updated patient's mother. Team will continue to follow up. 04/09: Patient condition remains unchanged, on the vent, on sedation, and on 2 pressors. Still febrile, on IV Abx, X1 set of fungal blood culture ordered. D/w ID recommended to start micafungin 100mg Qday. Hyperkalemic this am, plan for HD today. 04/10: VENICE overnight. Patient remains on the vent and sedated. Afebrile overnight, stress steroids added, pressors requirement is going down. HD overnight 3L out, plan for HD again today. Continue IV Abx and antifungal, F/u on culture data. 04/11: Patient remains on the vent and sedated, on minimal pressors this am. Tachycardic HR in the 130-140s this am. Per RN 4L out in HD yesterday, X1 dose of 25% Albumin given. Bloody drainage with clots also noted from patient nose, mouth, and ETT, Hbg 7 this am. Will hold AC for now, serial H&H ordered, transfuse if Hbg less than 7. 04/12: Patient was able to get HD today, Levaquin was stopped by ID. Consider CT chest/abdomen/pelvis when feasible per ID. Patient remains tachycardic. Was febrile most of the day however temperature decreased with icing and tylenol. 04/13: Patient had a CT chest, abdomen/pelvis with oral contrast and CT head today. Patient received 1 unit PRBC today given down trending of H/H with continual bloody drainage from mouth/nose. Patient will receive hemodialysis today. Patient started on Benadryl every 6, received 1 g of Solu-Medrol x1 for apparent angioedema post CT with contrast. 04/14: family meeting today with Dr. Noble. Continue supportive care. Thrombocytopenia today and given 1 units platelets. Vasopressors where weaned off overnight but restarted this morning for low maps. Will consider trach/peg next week with lower vent settings. 04/15: started taper on steroids, 1 units prbc per hem/onc, holding HD today per nephrology for ST. Still febrile, will reculture today. 04/16: Was able to be titrated off Levophed today. Was taken off vaso overnight and this was restarted today which briefly helped HR which was losw 100s. Weaning fentanyl and Versed as tolerated. HD today. Patient tachy this afternoon. 04/17: 2 units PRBC ordered for today. Still remains on vasopressin. HIT positive but anticoagulation withheld due to persistent thrombocytopenia and bleeding. 04/18: Patient able to be weaned off of vasopressors but remains on Versed for sedation. Sinus tachycardia on monitor. Plt and h/h improved. Hospitalist Physical - Constitutional Vitals: Temp Pulse Resp BP Pulse Ox 100.6 F H 117 H 30 H 144/90 100 04/18/21 06:27 04/18/21 07:55 04/18/21 07:55 04/18/21 07:51 04/18/21 07:51 General appearance: Present: no acute distress, well-nourished, obese, other (Intubated and sedated) - EENT Eyes: Present: PERRL, EOM intact ENT: dentition normal - Neck Neck: Present: normal ROM - Respiratory Respiratory effort: normal Respiratory: bilateral: diminished - Cardiovascular Rhythm: regular Heart Sounds: Present: S1 & S2. Absent: systolic murmur, diastolic murmur - Extremities Extremities: no ischemia, pulses intact, pulses symmetrical Extremity abnormal: edema Peripheral Pulses: within normal limits - Abdominal General gastrointestinal: soft, non-tender, non-distended, normal bowel sounds - Integumentary Integumentary: Present: dry (peeling, mouth sore) - Psychiatric Psychiatric: other - Neurologic Neurologic: other (sedated, opens eyes to voice) - Allied Health Allied health notes reviewed: nursing, RT Results - Labs CBC & Chem 7: 04/18/21 04:55 04/18/21 04:55 Labs: Laboratory Last Values WBC 12.4 K/mm3 (4.5-11.0) H 04/18/21 04:55 RBC 2.55 M/mm3 (3.65-5.03) L 04/18/21 04:55 Hgb 7.9 gm/dl (10.1-14.3) L 04/18/21 04:55 Hct 23.6 % (30.3-42.9) L 04/18/21 04:55 MCV 93 fl (79-97) 04/18/21 04:55 MCH 31 pg (28-32) 04/18/21 04:55 MCHC 33 % (30-34) 04/18/21 04:55 RDW 16.1 % (13.2-15.2) H 04/18/21 04:55 Plt Count 99 K/mm3 (140-440) L 04/18/21 04:55 Lymph % (Auto) 10.7 % (13.4-35.0) L 03/28/21 09:37 [place] % (Auto) 5.2 % (0.0-7.3) 03/28/21 09:37 Eos % (Auto) Kiln Tester 04/07/21 03:50 Baso % (Auto) 0.2 % (0.0-1.8) 03/28/21 09:37 Lymph # (Auto) 1.7 K/mm3 (1.2-5.4) 03/28/21 09:37 [place] # (Auto) 0.9 K/mm3 (0.0-0.8) H 03/28/21 09:37 Eos # (Auto) 0.6 K/mm3 (0.0-0.4) H 03/28/21 09:37 Baso # (Auto) 0.0 K/mm3 (0.0-0.1) 03/28/21 09:37 Add Manual Diff Complete 04/17/21 04:42 Total Counted 100 04/17/21 04:42 Seg Neutrophils % 80.0 % (40.0-70.0) H 03/28/21 09:37 Seg Neuts % (Manual) 68.0 % (40.0-70.0) 04/17/21 04:42 Band Neutrophils % 4.0 % 04/17/21 04:42 Lymphocytes % (Manual) 10.0 % (13.4-35.0) L 04/17/21 04:42 Reactive Lymphs % (Man) 2.0 % 04/17/21 04:42 Monocytes % (Manual) 6.0 % (0.0-7.3) 04/17/21 04:42 Eosinophils % (Manual) 3.0 % (0.0-4.3) 04/17/21 04:42 Basophils % (Manual) 2.0 % (0.0-1.8) H 04/03/21 04:30 Metamyelocytes % 6.0 % 04/17/21 04:42 Myelocytes % 1.0 % 04/17/21 04:42 Nucleated RBC % Not Reportable 04/17/21 04:42 Seg Neutrophils # 13.0 K/mm3 (1.8-7.7) H 03/28/21 09:37 Seg Neutrophils # Man 9.6 K/mm3 (1.8-7.7) H 04/17/21 04:42 Band Neutrophils # 0.6 K/mm3 04/17/21 04:42 Lymphocytes # (Manual) 1.4 K/mm3 (1.2-5.4) 04/17/21 04:42 Abs React Lymphs (Man) 0.3 K/mm3 04/17/21 04:42 Monocytes # (Manual) 0.8 K/mm3 (0.0-0.8) 04/17/21 04:42 Eosinophils # (Manual) 0.4 K/mm3 (0.0-0.4) 04/17/21 04:42 Basophils # (Manual) 0.0 K/mm3 (0.0-0.1) 04/17/21 04:42 Metamyelocytes # 0.8 K/mm3 04/17/21 04:42 Myelocytes # 0.1 K/mm3 04/17/21 04:42 Promyelocytes # 0.0 K/mm3 04/17/21 04:42 Blast Cells # 0.0 K/mm3 04/17/21 04:42 WBC Morphology Not Reportable 04/17/21 04:42 Hypersegmented Neuts Not Reportable 04/17/21 04:42 Hyposegmented Neuts Not Reportable 04/17/21 04:42 Hypogranular Neuts Not Reportable 04/17/21 04:42 Smudge Cells Not Reportable 04/17/21 04:42 Toxic Granulation Not Reportable 04/17/21 04:42 Toxic Vacuolation Not Reportable 04/17/21 04:42 Dohle Bodies Not Reportable 04/17/21 04:42 Pelger-Huet Anomaly Not Reportable 04/17/21 04:42 Bridgette Rods Not Reportable 04/17/21 04:42 Platelet Estimate Consistent w auto 04/17/21 04:42 Clumped Platelets Not Reportable 04/17/21 04:42 Plt Clumps, EDTA Not Reportable 04/17/21 04:42 Large Platelets Not Reportable 04/17/21 04:42 Giant Platelets Few 04/17/21 04:42 Platelet Satelliting Not Reportable 04/17/21 04:42 Plt Morphology Comment Not Reportable 04/17/21 04:42 RBC Morphology Not Reportable 04/17/21 04:42 Dimorphic RBCs Not Reportable 04/17/21 04:42 Polychromasia Few 04/17/21 04:42 Hypochromasia Not Reportable 04/17/21 04:42 Poikilocytosis Not Reportable 04/17/21 04:42 Anisocytosis Not Reportable 04/17/21 04:42 Microcytosis Not Reportable 04/17/21 04:42 Macrocytosis Not Reportable 04/17/21 04:42 Spherocytes Few 04/17/21 04:42 Pappenheimer Bodies Not Reportable 04/17/21 04:42 Sickle Cells Not Reportable 04/17/21 04:42 Target Cells Not Reportable 04/17/21 04:42 Tear Drop Cells Not Reportable 04/17/21 04:42 Ovalocytes Not Reportable 04/17/21 04:42 Helmet Cells Not Reportable 04/17/21 04:42 [place] Bodies Not Reportable 04/17/21 04:42 Newell Rings Not Reportable 04/17/21 04:42 Newborn Cells Not Reportable 04/17/21 04:42 Bite Cells Not Reportable 04/17/21 04:42 Crenated Cell Not Reportable 04/17/21 04:42 Elliptocytes Not Reportable 04/17/21 04:42 Acanthocytes (Spur) Not Reportable 04/17/21 04:42 Rouleaux Not Reportable 04/17/21 04:42 Hemoglobin C Crystals Not Reportable 04/17/21 04:42 Schistocytes Not Reportable 04/17/21 04:42 Malaria parasites Not Reportable 04/17/21 04:42 Percent Retic 4.52 % (0.78-2.58) H 03/31/21 09:49 Vaibhav Bodies Not Reportable 04/17/21 04:42 Hem Pathologist Commnt No 04/17/21 04:42 PT 17.1 Sec. (12.2-14.9) H 04/17/21 10:58 INR 1.26 (0.87-1.13) H 04/17/21 10:58 APTT 27.5 Sec. (24.2-36.6) 04/17/21 10:58 Fibrinogen 400 mg/dl (211-480) 04/14/21 09:45 D-Dimer 2696.79 ng/mlDDU (0-234) H 04/08/21 04:40 Heparin Anti-Xa, Unfract TNR 03/22/21 08:20 ABG pH 7.350 (7.320-7.450) 04/18/21 00:08 POC ABG pCO2 46.4 mmHg (32.0-48.0) 04/18/21 00:08 ABG pCO2 68.6 mm Hg 04/13/21 03:52 POC ABG pO2 81.2 mmHg (83-108) L 04/18/21 00:08 ABG pO2 98.9 mm Hg (80.0-90.0) H 04/13/21 03:52 POC ABG HCO3 25.0 04/18/21 00:08 ABG HCO3 25.5 mmol/L (20.0-26.0) 04/13/21 03:52 ABG O2 Saturation 94.9 (0-100) 04/18/21 00:08 ABG O2 Content 10.0 (0.0-44) 04/13/21 03:52 POC ABG Base Excess -0.7 04/18/21 00:08 ABG Base Excess -2.9 mmol/L (-2.0-3.0) L 04/13/21 03:52 ABG Hemoglobin 8.6 (12.0-17.5) L 04/18/21 00:08 ABG Oxyhemoglobin 94.0 (94-98) 04/18/21 00:08 ABG Carboxyhemoglobin 1.9 % (0.0-5.0) 04/13/21 03:52 ABG Methemoglobin 0 (0.0-1.5) 04/18/21 00:08 ABG Sodium 133.0 mmol/L (136.0-145.0) L 04/18/21 00:08 ABG Potassium 4.5 mmol/L (3.40-4.50) 04/18/21 00:08 ABG Chloride 101.0 mmol/L (98-107) 04/18/21 00:08 ABG Glucose 155 mg/dL (65-95) H 04/18/21 00:08 ABG Lactate Cancelled 04/03/21 20:45 Oxyhemoglobin 94.3 % (95.0-99.0) L 04/13/21 03:52 Carboxyhemoglobin 0.9 (0.5-1.5) 04/18/21 00:08 FiO2 65 % 04/13/21 03:52 FiO2 % 50 04/18/21 00:08 Sodium 136 mmol/L (137-145) L 04/18/21 04:55 Potassium 4.9 mmol/L (3.6-5.0) 04/18/21 04:55 Chloride 99.3 mmol/L (98-107) 04/18/21 04:55 Carbon Dioxide 23 mmol/L (22-30) 04/18/21 04:55 Anion Gap 19 mmol/L 04/18/21 04:55 BUN 86 mg/dL (7-17) H 04/18/21 04:55 Creatinine 3.1 mg/dL (0.6-1.2) H 04/18/21 04:55 Estimated GFR 21 ml/min 04/18/21 04:55 BUN/Creatinine Ratio 28 % 04/18/21 04:55 Glucose 180 mg/dL (65-100) H 04/18/21 04:55 POC Glucose 163 mg/dL (70-105) H 04/18/21 05:25 Hemoglobin A1c 6.3 % (4-6) H 03/15/21 05:09 Lactic Acid 0.80 mmol/L (0.7-2.0) 04/07/21 03:50 Calcium 8.2 mg/dL (8.4-10.2) L 04/18/21 04:55 Phosphorus 6.50 mg/dL (2.5-4.5) H 04/18/21 04:55 Magnesium 2.00 mg/dL (1.7-2.3) 04/18/21 04:55 Ferritin 151.6 ng/mL (10.0-200.0) 03/18/21 04:30 Total Bilirubin 0.30 mg/dL (0.1-1.2) 04/17/21 10:58 Bilirubin Cancelled 04/03/21 20:45 AST 29 units/L (5-40) 04/17/21 10:58 ALT 44 units/L (7-56) 04/17/21 10:58 Alkaline Phosphatase 79 units/L (35-129) 04/17/21 10:58 Lactate Dehydrogenase 394 units/L (91-180) H 04/05/21 05:20 C-Reactive Protein 26.10 mg/dL (0.00-1.30) H 04/08/21 04:00 Total Protein 5.7 g/dL (6.3-8.2) L 04/17/21 10:58 Albumin 2.1 g/dL (3.9-5) L 04/17/21 10:58 Albumin/Globulin Ratio 0.6 % 04/17/21 10:58 Triglycerides 406 mg/dL (2-149) H 04/11/21 04:15 Serotonin Release Assay TNR 03/22/21 08:20 Procalcitonin < 0.05 ng/mL (<0.15) 03/13/21 15:40 HCG, Qual Negative (Negative) 03/13/21 13:26 Arterial Blood Glucose 155 mg/dL (65-95) H 04/18/21 00:08 Arterial Blood Ionized Calcium 4.4 mg/dL (4.6-5.3) L 04/18/21 00:08 Urine Color Sweta (Yellow) 04/15/21 18:35 Urine Turbidity Cloudy (Clear) 04/15/21 18:35 Urine pH 5.0 (5.0-7.0) 04/15/21 18:35 Ur Specific [place] 1.025 (1.003-1.030) 04/15/21 18:35 Urine Protein >500 mg/dL (Negative) 04/15/21 18:35 Urine Glucose (UA) Neg mg/dL (Negative) 04/15/21 18:35 Urine Ketones Neg mg/dL (Negative) 04/15/21 18:35 Urine Blood Mod (Negative) 04/15/21 18:35 Urine Nitrite Neg (Negative) 04/15/21 18:35 Urine Bilirubin Neg (Negative) 04/15/21 18:35 Urine Urobilinogen < 2.0 mg/dL (<2.0) 04/15/21 18:35 Ur Leukocyte Esterase Mod (Negative) 04/15/21 18:35 Urine WBC (Auto) 156.0 /HPF (0.0-6.0) H 04/15/21 18:35 Urine RBC (Auto) 56.0 /HPF (0.0-6.0) 04/15/21 18:35 U Epithel Cells (Auto) 15.0 /HPF (0-13.0) H 04/15/21 18:35 Urine Bacteria (Auto) 2+ /HPF (Negative) 04/15/21 18:35 Urine WBC Clumps 3+ /HPF 04/15/21 18:35 Ur Renal Epithelial Cell 151 /LPF 04/06/21 Unknown Urine Mucus Few /HPF 04/15/21 18:35 Urine Yeast (Budding) 3+ /HPF 04/15/21 18:35 Urine Creatinine 40.1 mg/dL (0.1-20.0) H 03/14/21 17:50 Urine Sodium 124 mmol/L 03/14/21 17:50 Random Vancomycin 11.9 ug/mL (0-40.0) 04/15/21 07:05 KIMBERLEY Screen Negative (Negative) 04/07/21 08:27 Heparin-induced Plt Ab Negative (Negative) 03/22/21 08:20 UF Heparin High Dose TNR 03/22/21 08:20 JUAN UFH Low Dose 0.1 TNR 03/22/21 08:20 JUAN UFH Low Dose 0.5 TNR 03/22/21 08:20 Coronavirus (PCR) Negative (Negative) 04/04/21 09:00 Hepatitis A IgM Ab Non-reactive (NonReactive) 03/15/21 05:09 Hep Bs Antigen Nonreactive (Negative) 03/15/21 05:09 Hep B Core IgM Ab Non-reactive (NonReactive) 03/15/21 05:09 Hepatitis C Antibody Non-reactive (NonReactive) 03/15/21 05:09 Schistocytes Smear None seen 03/31/21 12:11 Blood Type O POSITIVE 04/15/21 12:10 Antibody Screen Positive 04/15/21 12:10 Antibody Identification Anti-E 04/15/21 12:10 Direct Antiglob Test Negative 03/31/21 23:18 NIKOLE, Poly Interpret Negative 03/31/21 23:18 Crossmatch See Detail 04/15/21 12:10 Microbiology: Microbiology 04/15/21 11:19 Peripheral/Venous Blood Culture - Preliminary NO GROWTH AFTER 48 HOURS 04/15/21 11:16 Peripheral/Venous Blood Culture - Preliminary NO GROWTH AFTER 48 HOURS 04/15/21 Unknown Urine,Catheterized - Straight Catheter Urine Culture - Preliminary NO GROWTH AFTER 24 HOURS Bazan/IV: Voiding Method Incontinent Active Medications - Current Medications Current Medications: Generic Name Dose Route Start Last Admin Trade Name Freq PRN Reason Stop Dose Admin Acetaminophen 650 mg 03/31/21 12:41 04/18/21 00:42 Acetaminophen 325 Mg/10.15 Ml Oral Liqd Unit Dose FEEDTUBE 650 mg Q6H PRN Administration TEMP >/=100.4 Albumin Human 25 gm 04/01/21 08:19 04/01/21 16:23 Albumin Human 25% (25 Gm/100 Ml) Inj IV 25 gm KARLOS PRN Administration Hypotension Albuterol 2.5 mg 03/19/21 00:53 Albuterol 2.5 Mg/3 Ml Nebu IH Q4HRT PRN Shortness Of Breath Albuterol/Ipratropium 1 ampul 03/19/21 08:00 04/18/21 07:55 Ipratropium/Albuterol Sulfate 3 Ml Ampul.Neb IH 1 ampul Q6HRT INESSA Administration Lipase/Protease/Amylase 1 each 04/09/21 17:17 Lipase 10,500/Protease 25,000/Amylase 43,750 (Units) Dr White FEEDTUBE PRN PRN For Clogged Feeding Tube Calcium Acetate 1,334 mg 04/03/21 20:00 04/18/21 10:07 Calcium Acetate 667 Mg Cap FEEDTUBE 1,334 mg TID INESSA Administration Dextrose 50 ml 03/14/21 11:02 03/15/21 11:40 Dextrose 50% In Water (25gm) 50 Ml Syringe IV 50 ml Q30MIN PRN Administration Hypoglycemia Protocol Famotidine 10 mg 03/17/21 22:00 04/18/21 10:08 Famotidine 10 Mg Tab PO 10 mg BID INESSA Administration Fentanyl 50 mcg 04/15/21 11:48 Fentanyl 100 Mcg/2 Ml Inj IV Q10MIN PRN ANALGESIA Hydrocortisone Sodium Succinate 50 mg 04/18/21 10:00 04/18/21 10:08 Hydrocortisone Sod Succ 100 Mg/2 Ml Vial IV 04/21/21 22:01 50 mg Q12H INESSA Administration Hydrocortisone Sodium Succinate 25 mg 04/22/21 10:00 Hydrocortisone Sod Succ 100 Mg/2 Ml Vial IV 04/25/21 09:59 QDAY INESSA Hydrophilic Ointment 1 applic 03/14/21 17:50 Lip Therapy Vaseline TP Q2HR PRN Dry Lips Hydrophilic Ointment 1 applic 04/15/21 13:00 04/17/21 22:49 Aquaphor Ointment TP 1 applic Q12HR INESSA Administration Midazolam HCl 100 mg/ Sodium 100 mls @ 1 mls/hr 03/30/21 15:00 04/18/21 06:45 Chloride IV 7 mg/hr TITR INESSA 7 mls/hr Administration Protocol 1 MG/HR Vasopressin 20 unit/ Sodium 101 mls @ 9.09 mls/hr 03/30/21 20:00 04/18/21 02:04 Chloride IV 0.03 units/min TITR INESSA 9.09 mls/hr Administration 0.03 UNITS/MIN Phenylephrine HCl 100 mg/ 100 mls @ 3 mls/hr 03/31/21 04:00 04/06/21 07:58 Sodium Chloride IV 0 mcg/min TITR INESSA 0 mls/hr Titration Protocol 50 MCG/MIN Propofol 1,000 mg in 100 mls @ 4.26 mls/hr 04/07/21 13:00 04/12/21 12:52 Diprivan 10 Mg/Ml IV 0 mcg/kg/min TITR INESSA 0 mls/hr Titration Protocol 5 MCG/KG/MIN Sodium Chloride 1,000 mls @ 1 mls/hr 04/14/21 16:45 04/14/21 16:57 Nacl 0.9% 1000 Ml IV 1 mls/hr DIRECT INESSA Administration NORepinephrine/NS 8 MG-250 ML 8 mg in 250 mls @ 3.75 mls/hr 04/15/21 12:00 04/18/21 01:40 Norepinephrine/Ns 8 Mg-250 Ml (Double Conc) IV 2 mcg/min TITRATE INESSA 3.75 mls/hr Administration Protocol 2 MCG/MIN Fentanyl Citrate 2,000 mcg in 100 mls @ 7.1 mls/hr 04/15/21 13:00 04/18/21 04:15 Fentanyl Drip Premix IV 4 mcg/kg/hr TITR INESSA 28.4 mls/hr Administration Protocol 1 MCG/KG/HR Sodium Chloride 100 mls @ 999 mls/hr 04/17/21 10:03 Nacl 0.9% IV KARLOS PRN Hypotension Insulin Human Lispro 0 unit 03/14/21 12:00 04/18/21 05:34 Insulin Lispro 100 Unit/Ml SUB-Q 3 unit Q6HR INESSA Administration Protocol Lorazepam 1 mg 03/13/21 19:40 03/30/21 19:58 Lorazepam 2 Mg/Ml Vial IV 1 mg Q4H PRN Administration Anxiety Multi-Ingred Cream/Lotion/Oil/Oint 1 applic 03/14/21 17:50 04/16/21 23:02 Mineral Oil/Petrolatum, White Ophth Oint 3.5 Gm OU 1 applic Q4HR PRN Administration Dry Eye(s) Ondansetron HCl 4 mg 03/13/21 19:30 03/21/21 12:05 Ondansetron 4 Mg/2 Ml Inj IV 4 mg Q8H PRN Administration Nausea And Vomiting Quetiapine Fumarate 300 mg 04/06/21 22:00 04/18/21 10:07 Quetiapine 100 Mg Tab PO 300 mg BID INESSA Administration Senna/Docusate Sodium 1 tab 03/14/21 22:00 04/18/21 10:07 Sennosides/Docusate Sodium 8.6/50 Mg Tab FEEDTUBE 1 tab BID INESSA Administration Simple Syrup 15 ml 04/09/21 17:17 Simple Syrup 15 Ml FEEDTUBE PRN PRN Hypoglycemia Simple Syrup 30 ml 04/09/21 17:17 Simple Syrup 15 Ml FEEDTUBE PRN PRN Hypoglycemia Sodium Bicarbonate 325 mg 04/09/21 17:17 Sodium Bicarbonate 325 Mg Tab FEEDTUBE PRN PRN For Clogged Feeding Tube Sodium Chloride 10 ml 03/13/21 22:00 04/18/21 10:08 Sodium Chloride 0.9% 10 Ml Flush Syringe IV 10 ml BID INESSA Administration Sodium Chloride 10 ml 03/13/21 19:30 04/17/21 05:34 Sodium Chloride 0.9% 10 Ml Flush Syringe IV 10 ml PRN PRN Administration LINE FLUSH Nutrition/Malnutrition Assess - Dietary Evaluation Nutrition/Malnutrition Findings: Nutrition Notes Start: 03/15/21 11:06 Freq: Status: Active Protocol: Document 04/17/21 13:12 CW (Rec: 04/17/21 13:25 CW [id number]) Nutrition Notes Initial or Follow up Reassessment Current Diagnosis Acute Kidney Injury, Hypertension,Respiratory Failure Other Pertinent Diagnosis pneu, Covid 19 Current Diet TF -Glucerna 1.2 Abdullahi (since L 04/14). Labs/Tests K 5.9 bun 112 k 3.6 BG 174 Pertinent Medications Senna Phoslo Solu cortef Height 5 ft 5 in Weight 142 kg Anselmo Body Weight (kg) 56.81 BMI 52.0 Weight change and time frame Drastic weight increase. Likely inaccurate. Recommend reweight. Subjective/Other Information Kitchen reports not out of Nepro. Will replace Nepro order. RN reports taht NGT placement needs to be verified . Recommend restart TF when medically feasible. RN reports unable to conduct reweight d/ t lack of bed scale. Will base TF off of UBW and adjust accordingly. Percent of energy/protein needs met: 0%/0% Burn Absent Trauma Absent GI Symptoms None Food Allergy No Skin Integrity/Comment Intact Current % PO Negligible Minimum of two criteria No physical signs of malnutrition #1 Nutrition Diagnosis Swallowing difficulty Etiology respiratory failure As Evidenced by Signs and Symptoms Pt on mechancial vent Diagnosis Progress(for reassessment Continues documentation) Is patient on ventilator? Yes Is Patient Ambulatory and/or Out of Bed No REE-([facility]-confined to bed) 2570.232 Kcal/Kg value to use for calculation 14 Approximate Energy Requirements Using 1988 kcal/Kg Calculation Used for Recommendations Kcal/kg Additional Notes protein need: up to 142 fluid needs: 1.5 L or per MD order Nutrition Intervention Change Diet Order: Continue TF when medically feasible Nutrition Support: Nepro at 45 with a free water flush of 120 ml q4h Kcal 1,944 Protein (gm) 88 Fluid (mL) 785 Goal #1 TF tolerance Goal #2 Meet at least 75% of EER via TF Follow-Up By: 12/06/21 Additional Comments F/U fo TF restart and toelrance <SAURABH ALBRECHT - Last Filed: 04/19/21 13:44> Assessment and Plan Assessment and plan: I saw and evaluated the patient. Discussed with the nurse practitioner and agree with their findings and plan as documented in this note. History Interval history: I saw and evaluated the patient. Discussed with the nurse practitioner and agree with their findings and plan as documented in this note. Hospitalist Physical - Constitutional Vitals: Temp Pulse Resp BP Pulse Ox 100.2 F H 131 H 16 128/54 100 04/19/21 12:11 04/19/21 12:42 04/19/21 11:46 04/19/21 12:42 04/19/21 12:42 Results - Labs CBC & Chem 7: 04/19/21 05:00 04/19/21 04:00 Labs: Laboratory Last Values WBC 12.5 K/mm3 (4.5-11.0) H 04/19/21 05:00 RBC 2.79 M/mm3 (3.65-5.03) L 04/19/21 05:00 Hgb 8.6 gm/dl (10.1-14.3) L 04/19/21 05:00 Hct 26.2 % (30.3-42.9) L 04/19/21 05:00 MCV 94 fl (79-97) 04/19/21 05:00 MCH 31 pg (28-32) 04/19/21 05:00 MCHC 33 % (30-34) 04/19/21 05:00 RDW 17.3 % (13.2-15.2) H 04/19/21 05:00 Plt Count 121 K/mm3 (140-440) L 04/19/21 05:00 Lymph % (Auto) 10.7 % (13.4-35.0) L 03/28/21 09:37 [place] % (Auto) 5.2 % (0.0-7.3) 03/28/21 09:37 Eos % (Auto) Kiln Tester 04/07/21 03:50 Baso % (Auto) 0.2 % (0.0-1.8) 03/28/21 09:37 Lymph # (Auto) 1.7 K/mm3 (1.2-5.4) 03/28/21 09:37 [place] # (Auto) 0.9 K/mm3 (0.0-0.8) H 03/28/21 09:37 Eos # (Auto) 0.6 K/mm3 (0.0-0.4) H 03/28/21 09:37 Baso # (Auto) 0.0 K/mm3 (0.0-0.1) 03/28/21 09:37 Add Manual Diff Complete 04/17/21 04:42 Total Counted 100 04/17/21 04:42 Seg Neutrophils % 80.0 % (40.0-70.0) H 03/28/21 09:37 Seg Neuts % (Manual) 68.0 % (40.0-70.0) 04/17/21 04:42 Band Neutrophils % 4.0 % 04/17/21 04:42 Lymphocytes % (Manual) 10.0 % (13.4-35.0) L 04/17/21 04:42 Reactive Lymphs % (Man) 2.0 % 04/17/21 04:42 Monocytes % (Manual) 6.0 % (0.0-7.3) 04/17/21 04:42 Eosinophils % (Manual) 3.0 % (0.0-4.3) 04/17/21 04:42 Basophils % (Manual) 2.0 % (0.0-1.8) H 04/03/21 04:30 Metamyelocytes % 6.0 % 04/17/21 04:42 Myelocytes % 1.0 % 04/17/21 04:42 Nucleated RBC % Not Reportable 04/17/21 04:42 Seg Neutrophils # 13.0 K/mm3 (1.8-7.7) H 03/28/21 09:37 Seg Neutrophils # Man 9.6 K/mm3 (1.8-7.7) H 04/17/21 04:42 Band Neutrophils # 0.6 K/mm3 04/17/21 04:42 Lymphocytes # (Manual) 1.4 K/mm3 (1.2-5.4) 04/17/21 04:42 Abs React Lymphs (Man) 0.3 K/mm3 04/17/21 04:42 Monocytes # (Manual) 0.8 K/mm3 (0.0-0.8) 04/17/21 04:42 Eosinophils # (Manual) 0.4 K/mm3 (0.0-0.4) 04/17/21 04:42 Basophils # (Manual) 0.0 K/mm3 (0.0-0.1) 04/17/21 04:42 Metamyelocytes # 0.8 K/mm3 04/17/21 04:42 Myelocytes # 0.1 K/mm3 04/17/21 04:42 Promyelocytes # 0.0 K/mm3 04/17/21 04:42 Blast Cells # 0.0 K/mm3 04/17/21 04:42 WBC Morphology Not Reportable 04/17/21 04:42 Hypersegmented Neuts Not Reportable 04/17/21 04:42 Hyposegmented Neuts Not Reportable 04/17/21 04:42 Hypogranular Neuts Not Reportable 04/17/21 04:42 Smudge Cells Not Reportable 04/17/21 04:42 Toxic Granulation Not Reportable 04/17/21 04:42 Toxic Vacuolation Not Reportable 04/17/21 04:42 Dohle Bodies Not Reportable 04/17/21 04:42 Pelger-Huet Anomaly Not Reportable 04/17/21 04:42 Bridgette Rods Not Reportable 04/17/21 04:42 Platelet Estimate Consistent w auto 04/17/21 04:42 Clumped Platelets Not Reportable 04/17/21 04:42 Plt Clumps, EDTA Not Reportable 04/17/21 04:42 Large Platelets Not Reportable 04/17/21 04:42 Giant Platelets Few 04/17/21 04:42 Platelet Satelliting Not Reportable 04/17/21 04:42 Plt Morphology Comment Not Reportable 04/17/21 04:42 RBC Morphology Not Reportable 04/17/21 04:42 Dimorphic RBCs Not Reportable 04/17/21 04:42 Polychromasia Few 04/17/21 04:42 Hypochromasia Not Reportable 04/17/21 04:42 Poikilocytosis Not Reportable 04/17/21 04:42 Anisocytosis Not Reportable 04/17/21 04:42 Microcytosis Not Reportable 04/17/21 04:42 Macrocytosis Not Reportable 04/17/21 04:42 Spherocytes Few 04/17/21 04:42 Pappenheimer Bodies Not Reportable 04/17/21 04:42 Sickle Cells Not Reportable 04/17/21 04:42 Target Cells Not Reportable 04/17/21 04:42 Tear Drop Cells Not Reportable 04/17/21 04:42 Ovalocytes Not Reportable 04/17/21 04:42 Helmet Cells Not Reportable 04/17/21 04:42 [place] Bodies Not Reportable 04/17/21 04:42 Newell Rings Not Reportable 04/17/21 04:42 Newborn Cells Not Reportable 04/17/21 04:42 Bite Cells Not Reportable 04/17/21 04:42 Crenated Cell Not Reportable 04/17/21 04:42 Elliptocytes Not Reportable 04/17/21 04:42 Acanthocytes (Spur) Not Reportable 04/17/21 04:42 Rouleaux Not Reportable 04/17/21 04:42 Hemoglobin C Crystals Not Reportable 04/17/21 04:42 Schistocytes Not Reportable 04/17/21 04:42 Malaria parasites Not Reportable 04/17/21 04:42 Percent Retic 4.52 % (0.78-2.58) H 03/31/21 09:49 Vaibhav Bodies Not Reportable 04/17/21 04:42 Hem Pathologist Commnt No 04/17/21 04:42 PT 17.1 Sec. (12.2-14.9) H 04/17/21 10:58 INR 1.26 (0.87-1.13) H 04/17/21 10:58 APTT 27.5 Sec. (24.2-36.6) 04/17/21 10:58 Fibrinogen 400 mg/dl (211-480) 04/14/21 09:45 D-Dimer 2696.79 ng/mlDDU (0-234) H 04/08/21 04:40 Heparin Anti-Xa, Unfract Negative (Negative) 04/14/21 09:45 ABG pH 7.301 (7.320-7.450) L 04/19/21 03:09 POC ABG pCO2 48.7 mmHg (32.0-48.0) H 04/19/21 03:09 ABG pCO2 68.6 mm Hg 04/13/21 03:52 POC ABG pO2 82.1 mmHg (83-108) L 04/19/21 03:09 ABG pO2 98.9 mm Hg (80.0-90.0) H 04/13/21 03:52 POC ABG HCO3 23.5 04/19/21 03:09 ABG HCO3 25.5 mmol/L (20.0-26.0) 04/13/21 03:52 ABG O2 Saturation 94.9 (0-100) 04/19/21 03:09 ABG O2 Content 10.0 (0.0-44) 04/13/21 03:52 POC ABG Base Excess -2.9 04/19/21 03:09 ABG Base Excess -2.9 mmol/L (-2.0-3.0) L 04/13/21 03:52 ABG Hemoglobin 8.9 (12.0-17.5) L 04/19/21 03:09 ABG Oxyhemoglobin 93.8 (94-98) L 04/19/21 03:09 ABG Carboxyhemoglobin 1.9 % (0.0-5.0) 04/13/21 03:52 ABG Methemoglobin 0.1 (0.0-1.5) 04/19/21 03:09 ABG Sodium 133.9 mmol/L (136.0-145.0) L 04/19/21 03:09 ABG Potassium 5.2 mmol/L (3.40-4.50) H 04/19/21 03:09 ABG Chloride 101.0 mmol/L (98-107) 04/19/21 03:09 ABG Glucose 126 mg/dL (65-95) H 04/19/21 03:09 ABG Lactate Cancelled 04/03/21 20:45 Oxyhemoglobin 94.3 % (95.0-99.0) L 04/13/21 03:52 Carboxyhemoglobin 1.1 (0.5-1.5) 04/19/21 03:09 FiO2 65 % 04/13/21 03:52 FiO2 % 40.0 04/19/21 03:09 Sodium 138 mmol/L (137-145) 04/19/21 04:00 Potassium 5.3 mmol/L (3.6-5.0) H 04/19/21 04:00 Chloride 100.3 mmol/L (98-107) 04/19/21 04:00 Carbon Dioxide 24 mmol/L (22-30) 04/19/21 04:00 Anion Gap 19 mmol/L 04/19/21 04:00 BUN 102 mg/dL (7-17) H 04/19/21 04:00 Creatinine 3.2 mg/dL (0.6-1.2) H 04/19/21 04:00 Estimated GFR 21 ml/min 04/19/21 04:00 BUN/Creatinine Ratio 32 % 04/19/21 04:00 Glucose 116 mg/dL (65-100) H 04/19/21 04:00 POC Glucose 118 mg/dL (70-105) H 04/19/21 11:18 Hemoglobin A1c 6.3 % (4-6) H 03/15/21 05:09 Lactic Acid 0.80 mmol/L (0.7-2.0) 04/07/21 03:50 Calcium 8.2 mg/dL (8.4-10.2) L 04/19/21 04:00 Phosphorus 6.50 mg/dL (2.5-4.5) H 04/18/21 04:55 Magnesium 2.00 mg/dL (1.7-2.3) 04/18/21 04:55 Ferritin 151.6 ng/mL (10.0-200.0) 03/18/21 04:30 Total Bilirubin 0.30 mg/dL (0.1-1.2) 04/17/21 10:58 Bilirubin Cancelled 04/03/21 20:45 AST 29 units/L (5-40) 04/17/21 10:58 ALT 44 units/L (7-56) 04/17/21 10:58 Alkaline Phosphatase 79 units/L (35-129) 04/17/21 10:58 Lactate Dehydrogenase 394 units/L (91-180) H 04/05/21 05:20 C-Reactive Protein 26.10 mg/dL (0.00-1.30) H 04/08/21 04:00 Total Protein 5.7 g/dL (6.3-8.2) L 04/17/21 10:58 Albumin 2.1 g/dL (3.9-5) L 04/17/21 10:58 Albumin/Globulin Ratio 0.6 % 04/17/21 10:58 Triglycerides 406 mg/dL (2-149) H 04/11/21 04:15 Serotonin Release Assay TNR 03/22/21 08:20 Procalcitonin < 0.05 ng/mL (<0.15) 03/13/21 15:40 HCG, Qual Negative (Negative) 03/13/21 13:26 Arterial Blood Glucose 126 mg/dL (65-95) H 04/19/21 03:09 Arterial Blood Ionized Calcium 4.4 mg/dL (4.6-5.3) L 04/18/21 00:08 Urine Color Sweta (Yellow) 04/15/21 18:35 Urine Turbidity Cloudy (Clear) 04/15/21 18:35 Urine pH 5.0 (5.0-7.0) 04/15/21 18:35 Ur Specific [place] 1.025 (1.003-1.030) 04/15/21 18:35 Urine Protein >500 mg/dL (Negative) 04/15/21 18:35 Urine Glucose (UA) Neg mg/dL (Negative) 04/15/21 18:35 Urine Ketones Neg mg/dL (Negative) 04/15/21 18:35 Urine Blood Mod (Negative) 04/15/21 18:35 Urine Nitrite Neg (Negative) 04/15/21 18:35 Urine Bilirubin Neg (Negative) 04/15/21 18:35 Urine Urobilinogen < 2.0 mg/dL (<2.0) 04/15/21 18:35 Ur Leukocyte Esterase Mod (Negative) 04/15/21 18:35 Urine WBC (Auto) 156.0 /HPF (0.0-6.0) H 04/15/21 18:35 Urine RBC (Auto) 56.0 /HPF (0.0-6.0) 04/15/21 18:35 U Epithel Cells (Auto) 15.0 /HPF (0-13.0) H 04/15/21 18:35 Urine Bacteria (Auto) 2+ /HPF (Negative) 04/15/21 18:35 Urine WBC Clumps 3+ /HPF 04/15/21 18:35 Ur Renal Epithelial Cell 151 /LPF 04/06/21 Unknown Urine Mucus Few /HPF 04/15/21 18:35 Urine Yeast (Budding) 3+ /HPF 04/15/21 18:35 Urine Creatinine 40.1 mg/dL (0.1-20.0) H 03/14/21 17:50 Urine Sodium 124 mmol/L 03/14/21 17:50 Random Vancomycin 11.9 ug/mL (0-40.0) 04/15/21 07:05 KIMBERLEY Screen Negative (Negative) 04/07/21 08:27 Heparin-induced Plt Ab Positive (Negative) H 04/14/21 09:45 UF Heparin High Dose 0 % Release 04/14/21 09:45 JUAN UFH Low Dose 0.1 1 % Release 04/14/21 09:45 JUAN UFH Low Dose 0.5 0 % Release 04/14/21 09:45 Coronavirus (PCR) Negative (Negative) 04/04/21 09:00 Hepatitis A IgM Ab Non-reactive (NonReactive) 03/15/21 05:09 Hep Bs Antigen Nonreactive (Negative) 03/15/21 05:09 Hep B Core IgM Ab Non-reactive (NonReactive) 03/15/21 05:09 Hepatitis C Antibody Non-reactive (NonReactive) 03/15/21 05:09 Schistocytes Smear None seen 03/31/21 12:11 Blood Type O POSITIVE 04/15/21 12:10 Antibody Screen Positive 04/15/21 12:10 Antibody Identification Anti-E 04/15/21 12:10 Direct Antiglob Test Negative 03/31/21 23:18 NIKOLE, Poly Interpret Negative 03/31/21 23:18 Crossmatch See Detail 04/15/21 12:10 Microbiology: Microbiology 04/15/21 11:19 Peripheral/Venous Blood Culture - Preliminary NO GROWTH AFTER 4 DAYS 04/15/21 11:16 Peripheral/Venous Blood Culture - Preliminary NO GROWTH AFTER 4 DAYS 04/15/21 Unknown Urine,Catheterized - Straight Catheter Urine Culture - Final NO GROWTH AFTER 48 HOURS Bazan/IV: Voiding Method Incontinent Active Medications - Current Medications Current Medications: Generic Name Dose Route Start Last Admin Trade Name Freq PRN Reason Stop Dose Admin Acetaminophen 650 mg 03/31/21 12:41 04/19/21 05:37 Acetaminophen 325 Mg/10.15 Ml Oral Liqd Unit Dose FEEDTUBE 650 mg Q6H PRN Administration TEMP >/=100.4 Albumin Human 25 gm 04/01/21 08:19 04/01/21 16:23 Albumin Human 25% (25 Gm/100 Ml) Inj IV 25 gm KARLOS PRN Administration Hypotension Albuterol 2.5 mg 03/19/21 00:53 Albuterol 2.5 Mg/3 Ml Nebu IH Q4HRT PRN Shortness Of Breath Albuterol/Ipratropium 1 ampul 03/19/21 08:00 04/19/21 08:31 Ipratropium/Albuterol Sulfate 3 Ml Ampul.Neb IH 1 ampul Q6HRT INESSA Administration Lipase/Protease/Amylase 1 each 04/09/21 17:17 Lipase 10,500/Protease 25,000/Amylase 43,750 (Units) Dr Cap FEEDTUBE PRN PRN For Clogged Feeding Tube Calcium Acetate 1,334 mg 04/03/21 20:00 04/19/21 10:52 Calcium Acetate 667 Mg Cap FEEDTUBE 1,334 mg TID INESSA Administration Dextrose 50 ml 03/14/21 11:02 03/15/21 11:40 Dextrose 50% In Water (25gm) 50 Ml Syringe IV 50 ml Q30MIN PRN Administration Hypoglycemia Protocol Famotidine 10 mg 03/17/21 22:00 04/19/21 13:25 Famotidine 10 Mg Tab PO Not Given BID INESSA Fentanyl 50 mcg 04/15/21 11:48 04/18/21 18:58 Fentanyl 100 Mcg/2 Ml Inj IV 50 mcg Q10MIN PRN Administration ANALGESIA Hydrocortisone Sodium Succinate 50 mg 04/18/21 10:00 04/18/21 21:19 Hydrocortisone Sod Succ 100 Mg/2 Ml Vial IV 04/21/21 22:01 50 mg Q12H INESSA Administration Hydrocortisone Sodium Succinate 25 mg 04/22/21 10:00 Hydrocortisone Sod Succ 100 Mg/2 Ml Vial IV 04/25/21 09:59 QDAY INESSA Hydrophilic Ointment 1 applic 03/14/21 17:50 04/18/21 19:02 Lip Therapy Vaseline TP 1 applic Q2HR PRN Administration Dry Lips Hydrophilic Ointment 1 applic 04/15/21 13:00 04/19/21 10:49 Aquaphor Ointment TP 1 applic Q12HR INESSA Administration Midazolam HCl 100 mg/ Sodium 100 mls @ 1 mls/hr 03/30/21 15:00 04/19/21 05:32 Chloride IV 7 mg/hr TITR INESSA 7 mls/hr Administration Protocol 1 MG/HR Vasopressin 20 unit/ Sodium 101 mls @ 9.09 mls/hr 03/30/21 20:00 04/18/21 02: 04 Chloride IV 0.03 units/min TITR INESSA 9.09 mls/hr Administration 0.03 UNITS/MIN Phenylephrine HCl 100 mg/ 100 mls @ 3 mls/hr 03/31/21 04:00 04/06/21 07:58 Sodium Chloride IV 0 mcg/min TITR INESSA 0 mls/hr Titration Protocol 50 MCG/MIN Propofol 1,000 mg in 100 mls @ 4.26 mls/hr 04/07/21 13:00 04/12/21 12:52 Diprivan 10 Mg/Ml IV 0 mcg/kg/min TITR INESSA 0 mls/hr Titration Protocol 5 MCG/KG/MIN Sodium Chloride 1,000 mls @ 1 mls/hr 04/14/21 16:45 04/14/21 16:57 Nacl 0.9% 1000 Ml IV 1 mls/hr DIRECT INESSA Administration NORepinephrine/NS 8 MG-250 ML 8 mg in 250 mls @ 3.75 mls/hr 04/15/21 12:00 04/19/21 08:20 Norepinephrine/Ns 8 Mg-250 Ml (Double Conc) IV 3 mcg/min TITRATE INESSA 5.625 mls/hr Titration Protocol 2 MCG/MIN Fentanyl Citrate 2,000 mcg in 100 mls @ 7.1 mls/hr 04/15/21 13:00 04/19/21 10:18 Fentanyl Drip Premix IV 4 mcg/kg/hr TITR INESSA 28.4 mls/hr Administration Protocol 1 MCG/KG/HR Sodium Chloride 100 mls @ 999 mls/hr 04/18/21 14:26 Nacl 0.9% IV KARLOS PRN Hypotension Insulin Human Lispro 0 unit 03/14/21 12:00 04/19/21 13:25 Insulin Lispro 100 Unit/Ml SUB-Q Not Given Q6HR INESSA Protocol Lorazepam 1 mg 03/13/21 19:40 04/18/21 18:58 Lorazepam 2 Mg/Ml Vial IV 1 mg Q4H PRN Administration Anxiety Multi-Ingred Cream/Lotion/Oil/Oint 1 applic 03/14/21 17:50 04/16/21 23:02 Mineral Oil/Petrolatum, White Ophth Oint 3.5 Gm OU 1 applic Q4HR PRN Administration Dry Eye(s) Ondansetron HCl 4 mg 03/13/21 19:30 03/21/21 12:05 Ondansetron 4 Mg/2 Ml Inj IV 4 mg Q8H PRN Administration Nausea And Vomiting Quetiapine Fumarate 300 mg 04/06/21 22:00 04/19/21 10:48 Quetiapine 100 Mg Tab PO 300 mg BID INESSA Administration Senna/Docusate Sodium 1 tab 03/14/21 22:00 04/19/21 10:48 Sennosides/Docusate Sodium 8.6/50 Mg Tab FEEDTUBE 1 tab BID INESSA Administration Simple Syrup 15 ml 04/09/21 17:17 Simple Syrup 15 Ml FEEDTUBE PRN PRN Hypoglycemia Simple Syrup 30 ml 04/09/21 17:17 Simple Syrup 15 Ml FEEDTUBE PRN PRN Hypoglycemia Sodium Bicarbonate 325 mg 04/09/21 17:17 Sodium Bicarbonate 325 Mg Tab FEEDTUBE PRN PRN For Clogged Feeding Tube Sodium Chloride 10 ml 03/13/21 22:00 04/19/21 10:53 Sodium Chloride 0.9% 10 Ml Flush Syringe IV 10 ml BID INESSA Administration Sodium Chloride 10 ml 03/13/21 19:30 04/17/21 05:34 Sodium Chloride 0.9% 10 Ml Flush Syringe IV 10 ml PRN PRN Administration LINE FLUSH Nutrition/Malnutrition Assess - Dietary Evaluation Nutrition/Malnutrition Findings: Nutrition Notes Start: 03/15/21 11:06 Freq: Status: Active Protocol: Document 04/17/21 13:12 CW (Rec: 04/17/21 13:25 [id number]) Nutrition Notes Initial or Follow up Reassessment Current Diagnosis Acute Kidney Injury, Hypertension,Respiratory Failure Other Pertinent Diagnosis pneu, Covid 19 Current Diet TF -Glucerna 1.2 Abdullahi (since L 04/14). Labs/Tests K 5.9 bun 112 k 3.6 BG 174 Pertinent Medications Senna Phoslo Solu cortef Height 5 ft 5 in Weight 142 kg Anselmo Body Weight (kg) 56.81 BMI 52.0 Weight change and time frame Drastic weight increase. Likely inaccurate. Recommend reweight. Subjective/Other Information Kitchen reports not out of Nepro. Will replace Nepro order. RN reports taht NGT placement needs to be verified . Recommend restart TF when medically feasible. RN reports unable to conduct reweight d/ t lack of bed scale. Will base TF off of UBW and adjust accordingly. Percent of energy/protein needs met: 0%/0% Burn Absent Trauma Absent GI Symptoms None Food Allergy No Skin Integrity/Comment Intact Current % PO Negligible Minimum of two criteria No physical signs of malnutrition #1 Nutrition Diagnosis Swallowing difficulty Etiology respiratory failure As Evidenced by Signs and Symptoms Pt on mechancial vent Diagnosis Progress(for reassessment Continues documentation) Is patient on ventilator? Yes Is Patient Ambulatory and/or Out of Bed No REE-([facility]-confined to bed) [phone] Kcal/Kg value to use for calculation 14 Approximate Energy Requirements Using 1988 kcal/Kg Calculation Used for Recommendations Kcal/kg Additional Notes protein need: up to 142 fluid needs: 1.5 L or per MD order Nutrition Intervention Change Diet Order: Continue TF when medically feasible Nutrition Support: Nepro at 45 with a free water flush of 120 ml q4h Kcal 1,944 Protein (gm) 88 Fluid (mL) 785 Goal #1 TF tolerance Goal #2 Meet at least 75% of EER via TF Follow-Up By: 04/19/21 Additional Comments F/U fo TF restart and toelrance
[2021-04-18] MEDS: fentaNYL 100 MCG/2 ML INJ IV PRN ×2 (12:33→18:58)
--- NOTE | 2021-04-18 13:30 | Progress Note ---
Assessment and Plan Impression: * Acute kidney injury - dialysis dependent * Acute hypoxic respiratory failure secondary to COVID 19 PNA * COVID 19 * Respiratory acidosis * Hyperkalemia Plan: * Patient is s/p HD Monday * Will plan for HD tomorrow * UF as tolerated * Transfuse pRBC per primary team * Hematology recs reviewed * Dose medications for renal function * Avoid potential nephrotoxins Subjective Date of service: 04/18/21 Principal diagnosis: Ac hypoxemic resp failure; AE-Asthma; SAI; Crohn's; COVID- 19; Pneumonia Interval history: 24h events reviewed Objective - Vital Signs Vital signs: Vital Signs - 12hr 04/18/21 04/18/21 04/18/21 01:30 01:45 02:01 Temperature Pulse Rate 137 H 135 H 119 H Pulse Rate [ Anterior Bilateral Throughout] Pulse Rate [ From Monitor] Respiratory 11 L 17 18 Rate Respiratory Rate [Anterior Bilateral Throughout] Blood Pressure O2 Sat by Pulse 97 98 98 Oximetry 04/18/21 04/18/21 04/18/21 02:15 02:31 02:44 Temperature Pulse Rate 122 H 120 H Pulse Rate [ 120 H Anterior Bilateral Throughout] Pulse Rate [ From Monitor] Respiratory 25 H 25 H Rate Respiratory 30 H Rate [Anterior Bilateral Throughout] Blood Pressure O2 Sat by Pulse 99 100 Oximetry 04/18/21 04/18/21 04/18/21 02:45 03:01 03:15 Temperature Pulse Rate 119 H 117 H 116 H Pulse Rate [ Anterior Bilateral Throughout] Pulse Rate [ From Monitor] Respiratory 25 H 29 H 30 H Rate Respiratory Rate [Anterior Bilateral Throughout] Blood Pressure O2 Sat by Pulse 100 100 100 Oximetry 04/18/21 04/18/21 04/18/21 03:26 03:31 03:45 Temperature 100.8 F H Pulse Rate 117 H 118 H Pulse Rate [ Anterior Bilateral Throughout] Pulse Rate [ From Monitor] Respiratory 30 H 30 H Rate Respiratory Rate [Anterior Bilateral Throughout] Blood Pressure O2 Sat by Pulse 99 99 Oximetry 04/18/21 04/18/21 04/18/21 04:00 04:01 04:09 Temperature Pulse Rate 120 H 117 H 115 H Pulse Rate [ Anterior Bilateral Throughout] Pulse Rate [ 116 H From Monitor] Respiratory 30 H 30 H Rate Respiratory Rate [Anterior Bilateral Throughout] Blood Pressure 112/72 O2 Sat by Pulse 100 99 99 Oximetry 04/18/21 04/18/21 04/18/21 04:11 04:21 04:31 Temperature Pulse Rate 117 H 116 H 115 H Pulse Rate [ Anterior Bilateral Throughout] Pulse Rate [ From Monitor] Respiratory 30 H 30 H 30 H Rate Respiratory Rate [Anterior Bilateral Throughout] Blood Pressure O2 Sat by Pulse 99 99 99 Oximetry 04/18/21 04/18/21 04/18/21 04:41 04:43 04:51 Temperature Pulse Rate 116 H 115 H 117 H Pulse Rate [ Anterior Bilateral Throughout] Pulse Rate [ From Monitor] Respiratory 30 H 30 H Rate Respiratory Rate [Anterior Bilateral Throughout] Blood Pressure O2 Sat by Pulse 99 99 Oximetry 04/18/21 04/18/21 04/18/21 05:01 05:11 05:21 Temperature Pulse Rate 118 H 116 H 115 H Pulse Rate [ Anterior Bilateral Throughout] Pulse Rate [ From Monitor] Respiratory 31 H 30 H 30 H Rate Respiratory Rate [Anterior Bilateral Throughout] Blood Pressure O2 Sat by Pulse 99 100 100 Oximetry 04/18/21 04/18/21 04/18/21 05:27 05:31 05:41 Temperature 100.8 F H Pulse Rate 118 H 118 H 120 H Pulse Rate [ Anterior Bilateral Throughout] Pulse Rate [ From Monitor] Respiratory 30 H 30 H 27 H Rate Respiratory Rate [Anterior Bilateral Throughout] Blood Pressure 119/77 O2 Sat by Pulse 99 100 100 Oximetry 04/18/21 04/18/21 04/18/21 05:51 05:56 06:01 Temperature 100.8 F H Pulse Rate 117 H 117 H Pulse Rate [ Anterior Bilateral Throughout] Pulse Rate [ From Monitor] Respiratory 29 H 29 H Rate Respiratory Rate [Anterior Bilateral Throughout] Blood Pressure O2 Sat by Pulse 100 100 Oximetry 04/18/21 04/18/21 04/18/21 06:11 06:21 06:27 Temperature 100.6 F H Pulse Rate 119 H 121 H Pulse Rate [ Anterior Bilateral Throughout] Pulse Rate [ From Monitor] Respiratory 32 H 13 Rate Respiratory Rate [Anterior Bilateral Throughout] Blood Pressure O2 Sat by Pulse 100 99 Oximetry 04/18/21 04/18/21 04/18/21 06:31 06:41 06:45 Temperature Pulse Rate 114 H 114 H 114 H Pulse Rate [ Anterior Bilateral Throughout] Pulse Rate [ From Monitor] Respiratory 22 30 H 30 H Rate Respiratory Rate [Anterior Bilateral Throughout] Blood Pressure O2 Sat by Pulse 99 100 100 Oximetry 04/18/21 04/18/21 04/18/21 07:01 07:15 07:51 Temperature Pulse Rate 116 H 113 H 116 H Pulse Rate [ Anterior Bilateral Throughout] Pulse Rate [ From Monitor] Respiratory 30 H 30 H Rate Respiratory Rate [Anterior Bilateral Throughout] Blood Pressure 144/90 O2 Sat by Pulse 99 99 100 Oximetry 04/18/21 04/18/21 07:55 11:44 Temperature Pulse Rate 143 H Pulse Rate [ 117 H Anterior Bilateral Throughout] Pulse Rate [ From Monitor] Respiratory Rate Respiratory 30 H Rate [Anterior Bilateral Throughout] Blood Pressure 151/80 O2 Sat by Pulse 93 Oximetry - General Appearance General appearance: well-developed, well-nourished, intubated EENT: ATNC, other (ETT in place) Gastrointestinal: obese Integumentary: rash - Lab 04/18/21 04:55 04/18/21 04:55 Most recent lab results ABG pH 7.350 (7.320-7.450) 04/18/21 00:08 ABG pCO2 68.6 mm Hg 04/13/21 03:52 ABG pO2 98.9 mm Hg (80.0-90.0) H 04/13/21 03:52 ABG HCO3 25.5 mmol/L (20.0-26.0) 04/13/21 03:52 ABG O2 Saturation 94.9 (0-100) 04/18/21 00:08 Calcium 8.2 mg/dL (8.4-10.2) L 04/18/21 04:55 Phosphorus 6.50 mg/dL (2.5-4.5) H 04/18/21 04:55 Magnesium 2.00 mg/dL (1.7-2.3) 04/18/21 04:55 Urine Creatinine 40.1 mg/dL (0.1-20.0) H 03/14/21 17:50 Urine Sodium 124 mmol/L 03/14/21 17:50 Medications & Allergies - Medications Allergies/Adverse Reactions: Allergies oxycodone HCl [From Percocet] Allergy (Severe, Verified 03/30/21 14:01) Swelling cefepime Allergy (Verified 04/06/21 13:38) Rash hydrocodone bitartrate [From Vicodin] Allergy (Verified 03/31/21 08:20) Swelling ALLERGY TO TYLENOL VS OXYCODONE ACTIVE ORDER REMOVED FROM MAR SINCE UNABLE TO CONFIRM WITH FAMILY Home Medications: Home Medications Medication Instructions Recorded Confirmed Last Taken Type Chlorhexidine Mouthwash [Peridex] 15 ml MM BID #1 bottle 10/11/20 03/13/21 Unknown Rx Clindamycin [Clindamycin CAP] 300 mg PO Q8H #21 cap 10/11/20 03/13/21 Unknown Rx Naproxen 500 mg PO Q12H PRN #12 tablet 10/11/20 03/13/21 Unknown Rx Butalb/Acetamin/Caff 50-325-40 1 - 2 tab PO Q6HR PRN #15 tab 12/05/20 03/13/21 Unknown Rx [Fioricet 50-325-40] Famotidine [Pepcid] 20 mg PO BID #30 tablet 12/05/20 03/13/21 Unknown Rx Ketorolac [Toradol] 10 mg PO Q8H PRN #20 tablet 12/05/20 03/13/21 Unknown Rx Ondansetron [Zofran Odt] 4 mg PO Q6HR PRN #20 tab.rapdis 12/05/20 03/13/21 Unknown Rx Albuterol Sulfate [Proair 90 mcg IH Q4HR PRN #2 [email or web address] 01/01/21 03/13/21 Unknown Rx Respiclick] Mupirocin [Bactroban 2% OINT] 1 applic TP BID 7 Days #1 tube 01/01/21 03/13/21 Unknown Rx Triamcinolone Aceton 0.1% (Nf) 1 applic TP BID 14 Days #1 tube 01/01/21 03/13/21 Unknown Rx [Kenalog (NF)] predniSONE [Deltasone] 40 mg PO QDAY #8 tab 01/01/21 03/13/21 Unknown Rx Active Medications: Generic Name Dose Route Start Last Admin Trade Name Freq PRN Reason Stop Dose Admin Acetaminophen 650 mg 03/31/21 12:41 04/18/21 12:01 Acetaminophen 325 Mg/10.15 Ml Oral Liqd Unit Dose FEEDTUBE 650 mg Q6H PRN Administration TEMP >/=100.4 Albumin Human 25 gm 04/01/21 08:19 04/01/21 16:23 Albumin Human 25% (25 Gm/100 Ml) Inj IV 25 gm KARLOS PRN Administration Hypotension Albuterol 2.5 mg 03/19/21 00:53 Albuterol 2.5 Mg/3 Ml Nebu IH Q4HRT PRN Shortness Of Breath Albuterol/Ipratropium 1 ampul 03/19/21 08:00 04/18/21 07:55 Ipratropium/Albuterol Sulfate 3 Ml Ampul.Neb IH 1 ampul Q6HRT INESSA Administration Lipase/Protease/Amylase 1 each 04/09/21 17:17 Lipase 10,500/Protease 25,000/Amylase 43,750 (Units) Cap FEEDTUBE PRN PRN For Clogged Feeding Tube Calcium Acetate 1,334 mg 04/03/21 20:00 04/18/21 10:07 Calcium Acetate 667 Mg Cap FEEDTUBE 1,334 mg TID INESSA Administration Dextrose 50 ml 03/14/21 11:02 03/15/21 11:40 Dextrose 50% In Water (25gm) 50 Ml Syringe IV 50 ml Q30MIN PRN Administration Hypoglycemia Protocol Famotidine 10 mg 03/17/21 22:00 04/18/21 10:08 Famotidine 10 Mg Tab PO 10 mg BID INESSA Administration Fentanyl 50 mcg 04/15/21 11:48 04/18/21 12:33 Fentanyl 100 Mcg/2 Ml Inj IV 50 mcg Q10MIN PRN Administration ANALGESIA Hydrocortisone Sodium Succinate 50 mg 04/18/21 10:00 04/18/21 10:08 Hydrocortisone Sod Succ 100 Mg/2 Ml Vial IV 04/21/21 22:01 50 mg Q12H INESSA Administration Hydrocortisone Sodium Succinate 25 mg 04/22/21 10:00 Hydrocortisone Sod Succ 100 Mg/2 Ml Vial IV 04/25/21 09:59 QDAY INESSA Hydrophilic Ointment 1 applic 03/14/21 17:50 Lip Therapy Vaseline TP Q2HR PRN Dry Lips Hydrophilic Ointment 1 applic 04/15/21 13:00 04/17/21 22:49 Aquaphor Ointment TP 1 applic Q12HR INESSA Administration Midazolam HCl 100 mg/ Sodium 100 mls @ 1 mls/hr 03/30/21 15:00 04/18/21 06:45 Chloride IV 7 mg/hr TITR INESSA 7 mls/hr Administration Protocol 1 MG/HR Vasopressin 20 unit/ Sodium 101 mls @ 9.09 mls/hr 03/30/21 20:00 04/18/21 02:04 Chloride IV 0.03 units/min TITR INESSA 9.09 mls/hr Administration 0.03 UNITS/MIN Phenylephrine HCl 100 mg/ 100 mls @ 3 mls/hr 03/31/21 04:00 04/06/21 07:58 Sodium Chloride IV 0 mcg/min TITR INESSA 0 mls/hr Titration Protocol 50 MCG/MIN Propofol 1,000 mg in 100 mls @ 4.26 mls/hr 04/07/21 13:00 04/12/21 12:52 Diprivan 10 Mg/Ml IV 0 mcg/kg/min TITR INESSA 0 mls/hr Titration Protocol 5 MCG/KG/MIN Sodium Chloride 1,000 mls @ 1 mls/hr 04/14/21 16:45 04/14/21 16:57 Nacl 0.9% 1000 Ml IV 1 mls/hr DIRECT INESSA Administration NORepinephrine/NS 8 MG-250 ML 8 mg in 250 mls @ 3.75 mls/hr 04/15/21 12:00 04/18/21 01:40 Norepinephrine/Ns 8 Mg-250 Ml (Double Conc) IV 2 mcg/min TITRATE INESSA 3.75 mls/hr Administration Protocol 2 MCG/MIN Fentanyl Citrate 2,000 mcg in 100 mls @ 7.1 mls/hr 04/15/21 13:00 04/18/21 12:33 Fentanyl Drip Premix IV 0.56 mcg/kg/hr TITR INESSA 4 mls/hr Administration Protocol 1 MCG/KG/HR Sodium Chloride 100 mls @ 999 mls/hr 04/17/21 10:03 Nacl 0.9% IV KARLOS PRN Hypotension Insulin Human Lispro 0 unit 03/14/21 12:00 04/18/21 05:34 Insulin Lispro 100 Unit/Ml SUB-Q 3 unit Q6HR INESSA Administration Protocol Lorazepam 1 mg 03/13/21 19:40 03/30/21 19:58 Lorazepam 2 Mg/Ml Vial IV 1 mg Q4H PRN Administration Anxiety Multi-Ingred Cream/Lotion/Oil/Oint 1 applic 03/14/21 17:50 04/16/21 23:02 Mineral Oil/Petrolatum, White Ophth Oint 3.5 Gm OU 1 applic Q4HR PRN Administration Dry Eye(s) Ondansetron HCl 4 mg 03/13/21 19:30 03/21/21 12:05 Ondansetron 4 Mg/2 Ml Inj IV 4 mg Q8H PRN Administration Nausea And Vomiting Quetiapine Fumarate 300 mg 04/06/21 22:00 04/18/21 10:07 Quetiapine 100 Mg Tab PO 300 mg BID INESSA Administration Senna/Docusate Sodium 1 tab 03/14/21 22:00 04/18/21 10:07 Sennosides/Docusate Sodium 8.6/50 Mg Tab FEEDTUBE 1 tab BID INESSA Administration Simple Syrup 15 ml 04/09/21 17:17 Simple Syrup 15 Ml FEEDTUBE PRN PRN Hypoglycemia Simple Syrup 30 ml 04/09/21 17:17 Simple Syrup 15 Ml FEEDTUBE PRN PRN Hypoglycemia Sodium Bicarbonate 325 mg 04/09/21 17:17 Sodium Bicarbonate 325 Mg Tab FEEDTUBE PRN PRN For Clogged Feeding Tube Sodium Chloride 10 ml 03/13/21 22:00 04/18/21 10:08 Sodium Chloride 0.9% 10 Ml Flush Syringe IV 10 ml BID INESSA Administration Sodium Chloride 10 ml 03/13/21 19:30 04/17/21 05:34 Sodium Chloride 0.9% 10 Ml Flush Syringe IV 10 ml PRN PRN Administration LINE FLUSH
[2021-04-18] MEDS ORDERED: SODIUM CHLORIDE 0.9% 100 ML IV PRN (14:26)
--- NOTE | 2021-04-18 15:35 | Event Note ---
<CRISTY PASCUAL - Last Filed: 04/18/21 15:34> Date: 04/18/21 I called Mrs. Michelle Pike at [phone] @ [id number] and informed her of continual sedation, ST, HD, bleeding and need for blood products. She did ask about ventilation and if Padmini is breathing on her own and sedation. I informed her we have her sedated to keep her comfortable while on ventilator. She was appreciative for the update. <SAURABH ALBRECHT - Last Filed: 04/19/21 13:30> I saw and evaluated the patient. Discussed with the nurse practitioner and agree with their findings and plan as documented in this note.
--- NOTE | 2021-04-18 16:46 | Progress Note ---
Assessment and Plan 31-year-old female with history of asthma and morbid obesity, Crohn's disease comes into the emergency room for severe wheezing and shortness of breath for the last 4 days. Patient is using her nebulizers and inhalers at home without improvement. No fever. Patient has difficulty ambulating because of the shortness of breath. Cough nonproductive. Patient is unvaccinated. No history of PE or DVT. No loss of smell. No fever or chills. Patient is very short of breath and tachypneic. atient intubated and placed on mechanical ventilation. Patient presently on assist contrlol /pressure control, Pressure control 35 cm H20 , FIO2 50%, Rate 20, PEEP 10. O2 saturation running 96%. Patient sedated. No ventilator asynchorny. Patient running low grade temp. Has mild leukocytosis. Patient has blood transfusion.Patients to days HGB 7.9. Platelet count 99,000. Blood pressure 100/55, Pulse 122, Respiratory rate 30 Chest xray done 04/17/21 reported Bilateral airspace opacities have similar appearance. Possible esophagogastric tube terminating in mid esophagus. Recommend clinical correlation. Talked to the patients nurse and told him advance esophagogastric tube to advance into the stomach. Repeating chest xray tomorrow. ABGs tomorrow. Patient presently on albuterol/atrovent aerosol treatments, Famotidine, I/V solucortef, Nor epinephrine, Phenylephrine and vasopressin. I spent critical care time of 45 minutes, reviewing the chart, examine the patient, review chest xray and labs, talking to the nursing staff, respiratory therapy and work up plan of treatment in this critically ill patient. - Patient Problems (1) Acute asthma exacerbation Current Visit: Yes Status: Acute Qualifiers: Asthma severity: severe Plan to address problem: Intubated and on mechanical ventilation, Pressure control 35 cm H20 pressure, FIO2 50%, Rate 20, PEEP 10. Albuterol/atrovent aerosol treatments. I/V solucortef. Famotidine. SCDs (2) Acute respiratory failure with hypoxia Current Visit: Yes Status: Acute Plan to address problem: ntubated and on mechanical ventilation, Pressure control 35 cm H20 pressure, FIO2 50%, Rate 20, PEEP 10. Albuterol/atrovent aerosol treatments. I/V solucortef. Famotidine. SCDs Recommend tracheostomy once patient is stable and platelets improves. (3) Leg edema Current Visit: Yes Status: Acute Plan to address problem: Venous duplex studies 04/06/21 reported No sonographic evidence for DVT in either lower extremity. (4) Pneumonia Current Visit: Yes Status: Acute Plan to address problem: Patient was on Meropenum. (5) Morbid obesity Current Visit: Yes Status: Chronic Plan to address problem: Weight reduction diet (6) Anemia Current Visit: Yes Status: Acute Plan to address problem: Receivednblood transfusion . To days HGB 7.9 Subjective Date of service: 04/18/21 Principal diagnosis: Ac hypoxemic resp failure; AE-Asthma; SAI; Crohn's; COVID- 19; Pneumonia Interval history: 31-year-old female with history of asthma and morbid obesity, Crohn's disease comes into the emergency room for severe wheezing and shortness of breath for the last 4 days. Patient is using her nebulizers and inhalers at home without improvement. No fever. Patient has difficulty ambulating because of the shortness of breath. Cough nonproductive. Patient is unvaccinated. No history of PE or DVT. No loss of smell. No fever or chills. Patient is very short of breath and tachypneic. Patient intubated and placed on mechanical ventilation. Patient presently on assist contrlol /pressure control, Pressure control 35 cm H20 , FIO2 50%, Rate 20, PEEP 10. O2 saturation running 96%. Patient sedated. No ventilator asynchorny. Patient running low grade temp. Has mild leukocytosis. Patient has blood transfusion.Patients to days HGB 7.9. Platelet count 99,000. Blood pressure 100/55, Pulse 122, Respiratory rate 30 Chest xray done 04/17/21 reported Bilateral airspace opacities have similar appearance. Possible esophagogastric tube terminating in mid esophagus. Recommend clinical correlation. Talked to the patients nurse and told him advance esophagogastric tube to advance into the stomach. Repeating chest xray tomorrow. ABGs tomorrow. Patient presently on albuterol/atrovent aerosol treatments, Famotidine, I/V solucortef, Nor epinephrine, Phenylephrine and vasopressin. Objective Vital Signs - 12hr 04/18/21 04/18/21 04/18/21 04:51 05:01 05:11 Temperature Pulse Rate 117 H 118 H 116 H Pulse Rate [ Anterior Bilateral Throughout] Respiratory 30 H 31 H 30 H Rate Respiratory Rate [Anterior Bilateral Throughout] Blood Pressure O2 Sat by Pulse 99 99 100 Oximetry 04/18/21 04/18/21 04/18/21 05:21 05:27 05:31 Temperature 100.8 F H Pulse Rate 115 H 118 H 118 H Pulse Rate [ Anterior Bilateral Throughout] Respiratory 30 H 30 H 30 H Rate Respiratory Rate [Anterior Bilateral Throughout] Blood Pressure 119/77 O2 Sat by Pulse 100 99 100 Oximetry 04/18/21 04/18/21 04/18/21 05:41 05:51 05:56 Temperature 100.8 F H Pulse Rate 120 H 117 H Pulse Rate [ Anterior Bilateral Throughout] Respiratory 27 H 29 H Rate Respiratory Rate [Anterior Bilateral Throughout] Blood Pressure O2 Sat by Pulse 100 100 Oximetry 04/18/21 04/18/21 04/18/21 06:01 06:11 06:21 Temperature Pulse Rate 117 H 119 H 121 H Pulse Rate [ Anterior Bilateral Throughout] Respiratory 29 H 32 H 13 Rate Respiratory Rate [Anterior Bilateral Throughout] Blood Pressure O2 Sat by Pulse 100 100 99 Oximetry 04/18/21 04/18/21 04/18/21 06:27 06:31 06:41 Temperature 100.6 F H Pulse Rate 114 H 114 H Pulse Rate [ Anterior Bilateral Throughout] Respiratory 22 30 H Rate Respiratory Rate [Anterior Bilateral Throughout] Blood Pressure O2 Sat by Pulse 99 100 Oximetry 04/18/21 04/18/21 04/18/21 06:45 07:01 07:15 Temperature Pulse Rate 114 H 116 H 113 H Pulse Rate [ Anterior Bilateral Throughout] Respiratory 30 H 30 H 30 H Rate Respiratory Rate [Anterior Bilateral Throughout] Blood Pressure O2 Sat by Pulse 100 99 99 Oximetry 04/18/21 04/18/21 04/18/21 07:31 07:45 07:51 Temperature Pulse Rate 110 H 109 H 116 H Pulse Rate [ Anterior Bilateral Throughout] Respiratory 30 H 30 H Rate Respiratory Rate [Anterior Bilateral Throughout] Blood Pressure 144/90 O2 Sat by Pulse 100 100 100 Oximetry 04/18/21 04/18/21 04/18/21 07:55 08:00 08:01 Temperature 100.8 F H Pulse Rate 114 H 114 H Pulse Rate [ 117 H Anterior Bilateral Throughout] Respiratory 22 Rate Respiratory 30 H Rate [Anterior Bilateral Throughout] Blood Pressure O2 Sat by Pulse 100 Oximetry 04/18/21 04/18/21 04/18/21 08:15 08:31 08:45 Temperature Pulse Rate 115 H 125 H 126 H Pulse Rate [ Anterior Bilateral Throughout] Respiratory 30 H 12 15 Rate Respiratory Rate [Anterior Bilateral Throughout] Blood Pressure O2 Sat by Pulse 98 100 100 Oximetry 04/18/21 04/18/21 04/18/21 09:01 09:15 09:31 Temperature Pulse Rate 132 H 133 H 133 H Pulse Rate [ Anterior Bilateral Throughout] Respiratory 17 20 20 Rate Respiratory Rate [Anterior Bilateral Throughout] Blood Pressure O2 Sat by Pulse 100 100 100 Oximetry 04/18/21 04/18/21 04/18/21 09:45 10:01 10:15 Temperature Pulse Rate 132 H 130 H 130 H Pulse Rate [ Anterior Bilateral Throughout] Respiratory 16 15 13 Rate Respiratory Rate [Anterior Bilateral Throughout] Blood Pressure O2 Sat by Pulse 100 100 100 Oximetry 04/18/21 04/18/21 04/18/21 10:31 10:45 11:01 Temperature Pulse Rate 136 H 140 H 142 H Pulse Rate [ Anterior Bilateral Throughout] Respiratory 16 16 17 Rate Respiratory Rate [Anterior Bilateral Throughout] Blood Pressure O2 Sat by Pulse 100 98 97 Oximetry 04/18/21 04/18/21 04/18/21 11:15 11:31 11:44 Temperature Pulse Rate 142 H 142 H 143 H Pulse Rate [ Anterior Bilateral Throughout] Respiratory 17 21 Rate Respiratory Rate [Anterior Bilateral Throughout] Blood Pressure 151/80 O2 Sat by Pulse 97 96 93 Oximetry 04/18/21 04/18/21 04/18/21 11:45 12:00 12:01 Temperature 100.4 F H Pulse Rate 142 H 144 H 144 H Pulse Rate [ Anterior Bilateral Throughout] Respiratory 19 19 Rate Respiratory Rate [Anterior Bilateral Throughout] Blood Pressure O2 Sat by Pulse 92 93 Oximetry 04/18/21 04/18/21 04/18/21 12:15 12:31 12:45 Temperature Pulse Rate 146 H 139 H 137 H Pulse Rate [ Anterior Bilateral Throughout] Respiratory 23 13 20 Rate Respiratory Rate [Anterior Bilateral Throughout] Blood Pressure O2 Sat by Pulse 95 90 93 Oximetry 04/18/21 04/18/21 04/18/21 13:01 13:15 13:31 Temperature Pulse Rate 134 H 130 H 127 H Pulse Rate [ Anterior Bilateral Throughout] Respiratory 22 24 30 H Rate Respiratory Rate [Anterior Bilateral Throughout] Blood Pressure O2 Sat by Pulse 94 96 97 Oximetry 04/18/21 04/18/21 04/18/21 13:45 14:01 14:15 Temperature Pulse Rate 126 H 123 H 121 H Pulse Rate [ Anterior Bilateral Throughout] Respiratory 30 H 30 H 30 H Rate Respiratory Rate [Anterior Bilateral Throughout] Blood Pressure O2 Sat by Pulse 97 98 98 Oximetry 04/18/21 04/18/21 04/18/21 14:18 14:31 14:45 Temperature Pulse Rate 117 H 119 H Pulse Rate [ 121 H Anterior Bilateral Throughout] Respiratory 30 H 30 H Rate Respiratory 30 H Rate [Anterior Bilateral Throughout] Blood Pressure O2 Sat by Pulse 99 98 Oximetry 04/18/21 04/18/21 04/18/21 15:01 15:15 15:18 Temperature 100.2 F H Pulse Rate 120 H 120 H Pulse Rate [ Anterior Bilateral Throughout] Respiratory 30 H 30 H Rate Respiratory Rate [Anterior Bilateral Throughout] Blood Pressure O2 Sat by Pulse 98 98 Oximetry Constitutional: no acute distress, asleep, other (morbidly obese female with no ventilator asynchorny.) Eyes: non-icteric, other (scleral erythema / bleeding is improving) ENT: oropharynx moist, oropharyngeal exudate pre (serosanguinous), other (ETT 25 cm BALJINDER) Neck: supple, no lymphadenopathy, no JVD, other (large circumference) Effort: mildly labored Ascultation: Bilateral: diminished breath sounds, rales, rhonchi Percussion: Bilateral: not dull Cardiovascular: regular rate and rhythm Gastrointestinal: normoactive bowel sounds, soft, non-tender, non-distended (protuberant) Integumentary: rash (now scaling / drying), other Extremities: no cyanosis, pulses normal, no ischemia or petechiae, edema (1+) Neurologic: non-focal exam, pupils equal and round, CN II-XII normal, other (unasble to assess re: AMS) Psychiatric: other (unasble to assess) CBC and BMP: 04/18/21 04:55 04/18/21 04:55 ABG, PT/INR, D-dimer: ABG ABG pH 7.350 (7.320-7.450) 04/18/21 00:08 POC ABG pCO2 46.4 mmHg (32.0-48.0) 04/18/21 00:08 ABG pCO2 68.6 mm Hg 04/13/21 03:52 POC ABG pO2 81.2 mmHg (83-108) L 04/18/21 00:08 ABG pO2 98.9 mm Hg (80.0-90.0) H 04/13/21 03:52 POC ABG HCO3 25.0 04/18/21 00:08 ABG O2 Saturation 94.9 (0-100) 04/18/21 00:08 PT/INR, D-dimer PT 17.1 Sec. (12.2-14.9) H 04/17/21 10:58 INR 1.26 (0.87-1.13) H 04/17/21 10:58 D-Dimer 2696.79 ng/mlDDU (0-234) H 04/08/21 04:40 Abnormal lab findings: Abnormal Labs 03/13/21 03/13/21 03/13/21 13:26 13:26 15:40 WBC RBC Hgb Hct MCH 27 L MCHC RDW 17.0 H Plt Count Lymph % (Auto) [place] # (Auto) Eos # (Auto) Seg Neutrophils % Lymphocytes % (Manual) Eosinophils % (Manual) Basophils % (Manual) Nucleated RBC % Seg Neutrophils # Seg Neutrophils # Man Lymphocytes # (Manual) Monocytes # (Manual) Eosinophils # (Manual) Basophils # (Manual) Percent Retic PT INR Fibrinogen D-Dimer ABG pH POC ABG pCO2 POC ABG pO2 ABG pO2 ABG HCO3 ABG O2 Saturation ABG Base Excess ABG Hemoglobin ABG Oxyhemoglobin ABG Sodium ABG Potassium ABG Chloride ABG Glucose Oxyhemoglobin Carboxyhemoglobin Sodium 136 L Potassium Chloride Carbon Dioxide BUN Creatinine Glucose 125 H 130 H POC Glucose Hemoglobin A1c Calcium Phosphorus Magnesium AST ALT Alkaline Phosphatase Lactate Dehydrogenase 235 H C-Reactive Protein 4.30 H Total Protein Albumin Triglycerides Arterial Blood Glucose Arterial Blood Ionized Calcium Urine WBC (Auto) U Epithel Cells (Auto) Urine Creatinine Random Vancomycin Coronavirus (PCR) Crossmatch 03/13/21 03/14/21 03/14/21 21:33 03:35 06:21 WBC 20.0 H RBC Hgb Hct MCH 27 L MCHC RDW 17.5 H Plt Count Lymph % (Auto) 7.8 L [place] # (Auto) 1.3 H Eos # (Auto) Seg Neutrophils % 85.4 H Lymphocytes % (Manual) Eosinophils % (Manual) Basophils % (Manual) Nucleated RBC % Seg Neutrophils # 17.1 H Seg Neutrophils # Man Lymphocytes # (Manual) Monocytes # (Manual) Eosinophils # (Manual) Basophils # (Manual) Percent Retic PT INR Fibrinogen D-Dimer ABG pH 7.323 L 7.234 L POC ABG pCO2 POC ABG pO2 ABG pO2 69.8 L ABG HCO3 ABG O2 Saturation 92.9 L 94.9 L ABG Base Excess -3.3 L -5.4 L ABG Hemoglobin ABG Oxyhemoglobin ABG Sodium ABG Potassium ABG Chloride ABG Glucose Oxyhemoglobin 91.2 L 93.2 L Carboxyhemoglobin Sodium Potassium Chloride Carbon Dioxide BUN Creatinine Glucose POC Glucose Hemoglobin A1c Calcium Phosphorus Magnesium AST ALT Alkaline Phosphatase Lactate Dehydrogenase C-Reactive Protein Total Protein Albumin Triglycerides Arterial Blood Glucose Arterial Blood Ionized Calcium Urine WBC (Auto) U Epithel Cells (Auto) Urine Creatinine Random Vancomycin Coronavirus (PCR) Crossmatch 03/14/21 03/14/21 03/14/21 06:21 07:47 11:21 WBC RBC Hgb Hct MCH MCHC RDW Plt Count Lymph % (Auto) [place] # (Auto) Eos # (Auto) Seg Neutrophils % Lymphocytes % (Manual) Eosinophils % (Manual) Basophils % (Manual) Nucleated RBC % Seg Neutrophils # Seg Neutrophils # Man Lymphocytes # (Manual) Monocytes # (Manual) Eosinophils # (Manual) Basophils # (Manual) Percent Retic PT INR Fibrinogen D-Dimer ABG pH POC ABG pCO2 POC ABG pO2 ABG pO2 ABG HCO3 ABG O2 Saturation ABG Base Excess ABG Hemoglobin ABG Oxyhemoglobin ABG Sodium ABG Potassium ABG Chloride ABG Glucose Oxyhemoglobin Carboxyhemoglobin Sodium 136 L 136 L Potassium 6.2 H* D 5.4 H Chloride Carbon Dioxide 21 L 21 L BUN Creatinine 1.5 H D 1.8 H Glucose 144 H 141 H POC Glucose 147 H Hemoglobin A1c Calcium Phosphorus Magnesium AST ALT Alkaline Phosphatase Lactate Dehydrogenase C-Reactive Protein Total Protein 8.7 H 9.2 H Albumin 3.8 L Triglycerides Arterial Blood Glucose Arterial Blood Ionized Calcium Urine WBC (Auto) U Epithel Cells (Auto) Urine Creatinine Random Vancomycin Coronavirus (PCR) Crossmatch 03/14/21 03/14/21 03/14/21 17:29 17:50 18:35 WBC RBC Hgb Hct MCH MCHC RDW Plt Count Lymph % (Auto) [place] # (Auto) Eos # (Auto) Seg Neutrophils % Lymphocytes % (Manual) Eosinophils % (Manual) Basophils % (Manual) Nucleated RBC % Seg Neutrophils # Seg Neutrophils # Man Lymphocytes # (Manual) Monocytes # (Manual) Eosinophils # (Manual) Basophils # (Manual) Percent Retic PT INR Fibrinogen D-Dimer ABG pH POC ABG pCO2 POC ABG pO2 ABG pO2 ABG HCO3 ABG O2 Saturation ABG Base Excess ABG Hemoglobin ABG Oxyhemoglobin ABG Sodium ABG Potassium ABG Chloride ABG Glucose Oxyhemoglobin Carboxyhemoglobin Sodium 135 L Potassium 6.4 H* Chloride Carbon Dioxide 15 L BUN 26 H Creatinine 3.4 H D Glucose 165 H POC Glucose 209 H Hemoglobin A1c Calcium Phosphorus Magnesium AST ALT Alkaline Phosphatase Lactate Dehydrogenase C-Reactive Protein Total Protein Albumin Triglycerides Arterial Blood Glucose Arterial Blood Ionized Calcium Urine WBC (Auto) U Epithel Cells (Auto) Urine Creatinine 40.1 H Random Vancomycin Coronavirus (PCR) Crossmatch 03/14/21 03/14/21 03/14/21 18:46 22:23 23:52 WBC RBC Hgb Hct MCH MCHC RDW Plt Count Lymph % (Auto) [place] # (Auto) Eos # (Auto) Seg Neutrophils % Lymphocytes % (Manual) Eosinophils % (Manual) Basophils % (Manual) Nucleated RBC % Seg Neutrophils # Seg Neutrophils # Man Lymphocytes # (Manual) Monocytes # (Manual) Eosinophils # (Manual) Basophils # (Manual) Percent Retic PT INR Fibrinogen D-Dimer ABG pH 7.270 L POC ABG pCO2 POC ABG pO2 63.4 L ABG pO2 ABG HCO3 ABG O2 Saturation ABG Base Excess ABG Hemoglobin ABG Oxyhemoglobin 90.2 L ABG Sodium 134.9 L ABG Potassium 5.3 H ABG Chloride ABG Glucose 134 H Oxyhemoglobin Carboxyhemoglobin Sodium 136 L Potassium 5.2 H Chloride Carbon Dioxide 20 L BUN 29 H Creatinine 3.6 H Glucose 236 H POC Glucose 128 H Hemoglobin A1c Calcium Phosphorus Magnesium AST ALT Alkaline Phosphatase Lactate Dehydrogenase C-Reactive Protein Total Protein Albumin 3.2 L Triglycerides Arterial Blood Glucose 134 H Arterial Blood Ionized Calcium Urine WBC (Auto) U Epithel Cells (Auto) Urine Creatinine Random Vancomycin Coronavirus (PCR) Crossmatch 03/14/21 03/15/21 03/15/21 Unknown 05:00 05:09 WBC 22.5 H RBC Hgb Hct MCH 27 L MCHC RDW 17.6 H Plt Count Lymph % (Auto) [place] # (Auto) Eos # (Auto) Seg Neutrophils % Lymphocytes % (Manual) Eosinophils % (Manual) Basophils % (Manual) Nucleated RBC % Seg Neutrophils # Seg Neutrophils # Man Lymphocytes # (Manual) Monocytes # (Manual) Eosinophils # (Manual) Basophils # (Manual) Percent Retic PT INR Fibrinogen D-Dimer ABG pH POC ABG pCO2 POC ABG pO2 ABG pO2 ABG HCO3 ABG O2 Saturation ABG Base Excess ABG Hemoglobin ABG Oxyhemoglobin ABG Sodium ABG Potassium ABG Chloride ABG Glucose Oxyhemoglobin Carboxyhemoglobin Sodium Potassium Chloride Carbon Dioxide BUN Creatinine Glucose POC Glucose 116 H Hemoglobin A1c Calcium Phosphorus Magnesium AST ALT Alkaline Phosphatase Lactate Dehydrogenase C-Reactive Protein Total Protein Albumin Triglycerides Arterial Blood Glucose Arterial Blood Ionized Calcium Urine WBC (Auto) U Epithel Cells (Auto) Urine Creatinine Random Vancomycin Coronavirus (PCR) Positive A Crossmatch 03/15/21 03/15/21 03/15/21 05:09 05:09 05:09 WBC RBC Hgb Hct MCH MCHC RDW Plt Count Lymph % (Auto) [place] # (Auto) Eos # (Auto) Seg Neutrophils % Lymphocytes % (Manual) Eosinophils % (Manual) Basophils % (Manual) Nucleated RBC % Seg Neutrophils # Seg Neutrophils # Man Lymphocytes # (Manual) Monocytes # (Manual) Eosinophils # (Manual) Basophils # (Manual) Percent Retic PT INR Fibrinogen D-Dimer ABG pH POC ABG pCO2 POC ABG pO2 ABG pO2 ABG HCO3 ABG O2 Saturation ABG Base Excess ABG Hemoglobin ABG Oxyhemoglobin ABG Sodium ABG Potassium ABG Chloride ABG Glucose Oxyhemoglobin Carboxyhemoglobin Sodium 136 L Potassium 6.5 H* D Chloride Carbon Dioxide 17 L BUN 41 H Creatinine 5.3 H Glucose 128 H POC Glucose Hemoglobin A1c 6.3 H Calcium Phosphorus Magnesium AST ALT Alkaline Phosphatase Lactate Dehydrogenase C-Reactive Protein 12.10 H Total Protein Albumin 3.1 L Triglycerides Arterial Blood Glucose Arterial Blood Ionized Calcium Urine WBC (Auto) U Epithel Cells (Auto) Urine Creatinine Random Vancomycin Coronavirus (PCR) Crossmatch 03/15/21 03/15/21 03/15/21 10:00 21:50 23:39 WBC RBC Hgb Hct MCH MCHC RDW Plt Count Lymph % (Auto) [place] # (Auto) Eos # (Auto) Seg Neutrophils % Lymphocytes % (Manual) Eosinophils % (Manual) Basophils % (Manual) Nucleated RBC % Seg Neutrophils # Seg Neutrophils # Man Lymphocytes # (Manual) Monocytes # (Manual) Eosinophils # (Manual) Basophils # (Manual) Percent Retic PT INR Fibrinogen D-Dimer ABG pH 7.098 L POC ABG pCO2 72.7 H POC ABG pO2 ABG pO2 162.5 H ABG HCO3 ABG O2 Saturation ABG Base Excess ABG Hemoglobin 10.1 L ABG Oxyhemoglobin ABG Sodium ABG Potassium 5.7 H ABG Chloride ABG Glucose Oxyhemoglobin Carboxyhemoglobin 0.4 L Sodium Potassium Chloride Carbon Dioxide BUN Creatinine Glucose POC Glucose 156 H Hemoglobin A1c Calcium Phosphorus Magnesium AST ALT Alkaline Phosphatase Lactate Dehydrogenase C-Reactive Protein Total Protein Albumin Triglycerides Arterial Blood Glucose Arterial Blood Ionized Calcium Urine WBC (Auto) U Epithel Cells (Auto) Urine Creatinine Random Vancomycin Coronavirus (PCR) Crossmatch 03/16/21 03/16/21 03/16/21 05:00 05:30 05:30 WBC 16.7 H RBC 3.59 L Hgb 9.6 L Hct 30.1 L MCH 27 L MCHC RDW 17.5 H Plt Count Lymph % (Auto) [place] # (Auto) Eos # (Auto) Seg Neutrophils % Lymphocytes % (Manual) Eosinophils % (Manual) Basophils % (Manual) Nucleated RBC % Seg Neutrophils # Seg Neutrophils # Man Lymphocytes # (Manual) Monocytes # (Manual) Eosinophils # (Manual) Basophils # (Manual) Percent Retic PT INR Fibrinogen D-Dimer ABG pH POC ABG pCO2 POC ABG pO2 ABG pO2 ABG HCO3 ABG O2 Saturation ABG Base Excess ABG Hemoglobin ABG Oxyhemoglobin ABG Sodium ABG Potassium ABG Chloride ABG Glucose Oxyhemoglobin Carboxyhemoglobin Sodium Potassium Chloride Carbon Dioxide BUN 46 H Creatinine 6.2 H Glucose 131 H POC Glucose Hemoglobin A1c Calcium Phosphorus 6.00 H D Magnesium AST ALT Alkaline Phosphatase Lactate Dehydrogenase 318 H C-Reactive Protein 18.60 H Total Protein Albumin 3.0 L Triglycerides Arterial Blood Glucose Arterial Blood Ionized Calcium Urine WBC (Auto) U Epithel Cells (Auto) Urine Creatinine Random Vancomycin Coronavirus (PCR) Crossmatch 03/16/21 03/16/21 03/16/21 05:51 06:37 08:58 WBC RBC Hgb Hct MCH MCHC RDW Plt Count Lymph % (Auto) [place] # (Auto) Eos # (Auto) Seg Neutrophils % Lymphocytes % (Manual) Eosinophils % (Manual) Basophils % (Manual) Nucleated RBC % Seg Neutrophils # Seg Neutrophils # Man Lymphocytes # (Manual) Monocytes # (Manual) Eosinophils # (Manual) Basophils # (Manual) Percent Retic PT INR Fibrinogen D-Dimer 3041.12 H ABG pH POC ABG pCO2 POC ABG pO2 ABG pO2 141.5 H ABG HCO3 ABG O2 Saturation ABG Base Excess ABG Hemoglobin 9.7 L ABG Oxyhemoglobin ABG Sodium ABG Potassium ABG Chloride ABG Glucose Oxyhemoglobin Carboxyhemoglobin Sodium Potassium Chloride Carbon Dioxide BUN Creatinine Glucose POC Glucose 126 H Hemoglobin A1c Calcium Phosphorus Magnesium AST ALT Alkaline Phosphatase Lactate Dehydrogenase C-Reactive Protein Total Protein Albumin Triglycerides Arterial Blood Glucose Arterial Blood Ionized Calcium Urine WBC (Auto) U Epithel Cells (Auto) Urine Creatinine Random Vancomycin Coronavirus (PCR) Crossmatch 03/16/21 03/16/21 03/16/21 12:11 16:51 21:00 WBC RBC Hgb Hct MCH MCHC RDW Plt Count Lymph % (Auto) [place] # (Auto) Eos # (Auto) Seg Neutrophils % Lymphocytes % (Manual) Eosinophils % (Manual) Basophils % (Manual) Nucleated RBC % Seg Neutrophils # Seg Neutrophils # Man Lymphocytes # (Manual) Monocytes # (Manual) Eosinophils # (Manual) Basophils # (Manual) Percent Retic PT INR Fibrinogen D-Dimer ABG pH 7.239 L POC ABG pCO2 61.5 H POC ABG pO2 80.8 L ABG pO2 ABG HCO3 ABG O2 Saturation ABG Base Excess ABG Hemoglobin 11.4 L ABG Oxyhemoglobin 93.5 L ABG Sodium ABG Potassium 5.4 H ABG Chloride ABG Glucose 137 H Oxyhemoglobin Carboxyhemoglobin 0.2 L Sodium Potassium Chloride Carbon Dioxide BUN Creatinine Glucose POC Glucose 156 H 133 H Hemoglobin A1c Calcium Phosphorus Magnesium AST ALT Alkaline Phosphatase Lactate Dehydrogenase C-Reactive Protein Total Protein Albumin Triglycerides Arterial Blood Glucose 137 H Arterial Blood Ionized Calcium Urine WBC (Auto) U Epithel Cells (Auto) Urine Creatinine Random Vancomycin Coronavirus (PCR) Crossmatch 03/16/21 03/17/21 03/17/21 23:42 05:23 05:23 WBC 18.4 H RBC Hgb Hct MCH 27 L MCHC RDW 17.4 H Plt Count Lymph % (Auto) [place] # (Auto) Eos # (Auto) Seg Neutrophils % Lymphocytes % (Manual) Eosinophils % (Manual) Basophils % (Manual) Nucleated RBC % Seg Neutrophils # Seg Neutrophils # Man Lymphocytes # (Manual) Monocytes # (Manual) Eosinophils # (Manual) Basophils # (Manual) Percent Retic PT INR Fibrinogen D-Dimer ABG pH POC ABG pCO2 POC ABG pO2 ABG pO2 ABG HCO3 ABG O2 Saturation ABG Base Excess ABG Hemoglobin ABG Oxyhemoglobin ABG Sodium ABG Potassium ABG Chloride ABG Glucose Oxyhemoglobin Carboxyhemoglobin Sodium Potassium 5.2 H Chloride Carbon Dioxide 21 L BUN 79 H Creatinine 8.6 H Glucose 124 H POC Glucose 133 H Hemoglobin A1c Calcium Phosphorus Magnesium AST ALT Alkaline Phosphatase Lactate Dehydrogenase C-Reactive Protein Total Protein Albumin 3.2 L Triglycerides 285 H Arterial Blood Glucose Arterial Blood Ionized Calcium Urine WBC (Auto) U Epithel Cells (Auto) Urine Creatinine Random Vancomycin Coronavirus (PCR) Crossmatch 03/17/21 03/17/21 03/17/21 05:23 10:48 12:20 WBC RBC Hgb Hct MCH MCHC RDW Plt Count Lymph % (Auto) [place] # (Auto) Eos # (Auto) Seg Neutrophils % Lymphocytes % (Manual) Eosinophils % (Manual) Basophils % (Manual) Nucleated RBC % Seg Neutrophils # Seg Neutrophils # Man Lymphocytes # (Manual) Monocytes # (Manual) Eosinophils # (Manual) Basophils # (Manual) Percent Retic PT INR Fibrinogen D-Dimer ABG pH 7.294 L POC ABG pCO2 POC ABG pO2 ABG pO2 90.3 H ABG HCO3 ABG O2 Saturation ABG Base Excess ABG Hemoglobin 9.9 L ABG Oxyhemoglobin ABG Sodium ABG Potassium ABG Chloride ABG Glucose Oxyhemoglobin Carboxyhemoglobin Sodium Potassium 5.2 H Chloride Carbon Dioxide 21 L BUN 79 H Creatinine 8.4 H Glucose 125 H POC Glucose 171 H Hemoglobin A1c Calcium Phosphorus 9.90 H D Magnesium 2.40 H AST ALT Alkaline Phosphatase Lactate Dehydrogenase C-Reactive Protein Total Protein Albumin Triglycerides Arterial Blood Glucose Arterial Blood Ionized Calcium Urine WBC (Auto) U Epithel Cells (Auto) Urine Creatinine Random Vancomycin Coronavirus (PCR) Crossmatch 03/17/21 03/17/21 03/18/21 17:24 21:00 04:30 WBC RBC Hgb Hct MCH MCHC RDW Plt Count Lymph % (Auto) [place] # (Auto) Eos # (Auto) Seg Neutrophils % Lymphocytes % (Manual) Eosinophils % (Manual) Basophils % (Manual) Nucleated RBC % Seg Neutrophils # Seg Neutrophils # Man Lymphocytes # (Manual) Monocytes # (Manual) Eosinophils # (Manual) Basophils # (Manual) Percent Retic PT INR Fibrinogen D-Dimer 9953.09 H ABG pH 7.310 L POC ABG pCO2 54.5 H POC ABG pO2 62.3 L ABG pO2 ABG HCO3 ABG O2 Saturation ABG Base Excess ABG Hemoglobin 10.2 L ABG Oxyhemoglobin 88.6 L ABG Sodium ABG Potassium 4.7 H ABG Chloride ABG Glucose 99 H Oxyhemoglobin Carboxyhemoglobin 0.3 L Sodium Potassium Chloride Carbon Dioxide BUN Creatinine Glucose POC Glucose 121 H Hemoglobin A1c Calcium Phosphorus Magnesium AST ALT Alkaline Phosphatase Lactate Dehydrogenase C-Reactive Protein Total Protein Albumin Triglycerides Arterial Blood Glucose 99 H Arterial Blood Ionized Calcium 4.3 L Urine WBC (Auto) U Epithel Cells (Auto) Urine Creatinine Random Vancomycin Coronavirus (PCR) Crossmatch 03/18/21 03/18/21 03/18/21 04:30 04:30 11:34 WBC 12.8 H RBC 3.49 L Hgb 9.4 L Hct 29.3 L MCH 27 L MCHC RDW 17.4 H Plt Count Lymph % (Auto) [place] # (Auto) Eos # (Auto) Seg Neutrophils % Lymphocytes % (Manual) Eosinophils % (Manual) Basophils % (Manual) Nucleated RBC % Seg Neutrophils # Seg Neutrophils # Man Lymphocytes # (Manual) Monocytes # (Manual) Eosinophils # (Manual) Basophils # (Manual) Percent Retic PT INR Fibrinogen D-Dimer ABG pH POC ABG pCO2 POC ABG pO2 ABG pO2 ABG HCO3 ABG O2 Saturation ABG Base Excess ABG Hemoglobin ABG Oxyhemoglobin ABG Sodium ABG Potassium ABG Chloride ABG Glucose Oxyhemoglobin Carboxyhemoglobin Sodium Potassium Chloride Carbon Dioxide BUN 69 H Creatinine 7.3 H Glucose POC Glucose 114 H Hemoglobin A1c Calcium 8.2 L Phosphorus 7.60 H D Magnesium AST ALT Alkaline Phosphatase Lactate Dehydrogenase 477 H C-Reactive Protein 6.90 H Total Protein Albumin Triglycerides Arterial Blood Glucose Arterial Blood Ionized Calcium Urine WBC (Auto) U Epithel Cells (Auto) Urine Creatinine Random Vancomycin Coronavirus (PCR) Crossmatch 03/18/21 03/19/21 03/19/21 21:44 04:13 04:13 WBC 13.7 H RBC 3.32 L Hgb 9.0 L Hct 28.1 L MCH 27 L MCHC RDW 16.9 H Plt Count Lymph % (Auto) [place] # (Auto) Eos # (Auto) Seg Neutrophils % Lymphocytes % (Manual) Eosinophils % (Manual) Basophils % (Manual) Nucleated RBC % Seg Neutrophils # Seg Neutrophils # Man Lymphocytes # (Manual) Monocytes # (Manual) Eosinophils # (Manual) Basophils # (Manual) Percent Retic PT INR Fibrinogen D-Dimer ABG pH 7.290 L POC ABG pCO2 POC ABG pO2 ABG pO2 119.7 H ABG HCO3 28.0 H ABG O2 Saturation ABG Base Excess ABG Hemoglobin 9.6 L ABG Oxyhemoglobin ABG Sodium ABG Potassium ABG Chloride ABG Glucose Oxyhemoglobin Carboxyhemoglobin Sodium Potassium Chloride Carbon Dioxide BUN Creatinine Glucose POC Glucose Hemoglobin A1c Calcium Phosphorus Magnesium AST ALT Alkaline Phosphatase Lactate Dehydrogenase C-Reactive Protein Total Protein Albumin Triglycerides Arterial Blood Glucose Arterial Blood Ionized Calcium Urine WBC (Auto) U Epithel Cells (Auto) Urine Creatinine Random Vancomycin 43.5 H Coronavirus (PCR) Crossmatch 03/19/21 03/19/21 03/19/21 04:13 05:59 11:40 WBC RBC Hgb Hct MCH MCHC RDW Plt Count Lymph % (Auto) [place] # (Auto) Eos # (Auto) Seg Neutrophils % Lymphocytes % (Manual) Eosinophils % (Manual) Basophils % (Manual) Nucleated RBC % Seg Neutrophils # Seg Neutrophils # Man Lymphocytes # (Manual) Monocytes # (Manual) Eosinophils # (Manual) Basophils # (Manual) Percent Retic PT INR Fibrinogen D-Dimer ABG pH POC ABG pCO2 POC ABG pO2 ABG pO2 ABG HCO3 ABG O2 Saturation ABG Base Excess ABG Hemoglobin ABG Oxyhemoglobin ABG Sodium ABG Potassium ABG Chloride ABG Glucose Oxyhemoglobin Carboxyhemoglobin Sodium Potassium Chloride Carbon Dioxide BUN 55 H Creatinine 7.0 H Glucose POC Glucose 116 H 145 H Hemoglobin A1c Calcium 8.1 L Phosphorus 7.90 H Magnesium AST ALT Alkaline Phosphatase Lactate Dehydrogenase C-Reactive Protein Total Protein Albumin Triglycerides Arterial Blood Glucose Arterial Blood Ionized Calcium Urine WBC (Auto) U Epithel Cells (Auto) Urine Creatinine Random Vancomycin Coronavirus (PCR) Crossmatch 03/19/21 03/19/21 03/20/21 17:01 23:41 04:00 WBC 15.6 H RBC 3.55 L Hgb 9.6 L Hct MCH 27 L MCHC RDW 16.8 H Plt Count 139 L Lymph % (Auto) [place] # (Auto) Eos # (Auto) Seg Neutrophils % Lymphocytes % (Manual) Eosinophils % (Manual) Basophils % (Manual) Nucleated RBC % Seg Neutrophils # Seg Neutrophils # Man Lymphocytes # (Manual) Monocytes # (Manual) Eosinophils # (Manual) Basophils # (Manual) Percent Retic PT INR Fibrinogen D-Dimer ABG pH POC ABG pCO2 POC ABG pO2 ABG pO2 ABG HCO3 ABG O2 Saturation ABG Base Excess ABG Hemoglobin ABG Oxyhemoglobin ABG Sodium ABG Potassium ABG Chloride ABG Glucose Oxyhemoglobin Carboxyhemoglobin Sodium Potassium Chloride Carbon Dioxide BUN Creatinine Glucose POC Glucose 111 H 118 H Hemoglobin A1c Calcium Phosphorus Magnesium AST ALT Alkaline Phosphatase Lactate Dehydrogenase C-Reactive Protein Total Protein Albumin Triglycerides Arterial Blood Glucose Arterial Blood Ionized Calcium Urine WBC (Auto) U Epithel Cells (Auto) Urine Creatinine Random Vancomycin Coronavirus (PCR) Crossmatch 03/20/21 03/20/21 03/20/21 04:00 04:00 04:37 WBC RBC Hgb Hct MCH MCHC RDW Plt Count Lymph % (Auto) [place] # (Auto) Eos # (Auto) Seg Neutrophils % Lymphocytes % (Manual) Eosinophils % (Manual) Basophils % (Manual) Nucleated RBC % Seg Neutrophils # Seg Neutrophils # Man Lymphocytes # (Manual) Monocytes # (Manual) Eosinophils # (Manual) Basophils # (Manual) Percent Retic PT INR Fibrinogen D-Dimer > 23881 H ABG pH 7.306 L POC ABG pCO2 POC ABG pO2 ABG pO2 ABG HCO3 27.9 H ABG O2 Saturation ABG Base Excess ABG Hemoglobin 5.2 L ABG Oxyhemoglobin ABG Sodium ABG Potassium ABG Chloride ABG Glucose Oxyhemoglobin Carboxyhemoglobin Sodium Potassium 5.2 H Chloride 97.6 L Carbon Dioxide BUN 52 H Creatinine 6.2 H Glucose 104 H POC Glucose Hemoglobin A1c Calcium Phosphorus 8.60 H Magnesium AST ALT Alkaline Phosphatase Lactate Dehydrogenase C-Reactive Protein 6.90 H Total Protein Albumin Triglycerides Arterial Blood Glucose Arterial Blood Ionized Calcium Urine WBC (Auto) U Epithel Cells (Auto) Urine Creatinine Random Vancomycin Coronavirus (PCR) Crossmatch 03/20/21 03/20/21 03/20/21 13:50 17:46 17:56 WBC RBC Hgb Hct MCH MCHC RDW Plt Count Lymph % (Auto) [place] # (Auto) Eos # (Auto) Seg Neutrophils % Lymphocytes % (Manual) Eosinophils % (Manual) Basophils % (Manual) Nucleated RBC % Seg Neutrophils # Seg Neutrophils # Man Lymphocytes # (Manual) Monocytes # (Manual) Eosinophils # (Manual) Basophils # (Manual) Percent Retic PT INR Fibrinogen D-Dimer ABG pH POC ABG pCO2 POC ABG pO2 ABG pO2 ABG HCO3 ABG O2 Saturation ABG Base Excess ABG Hemoglobin ABG Oxyhemoglobin ABG Sodium ABG Potassium ABG Chloride ABG Glucose Oxyhemoglobin Carboxyhemoglobin Sodium Potassium Chloride Carbon Dioxide BUN 63 H 43 H Creatinine Glucose POC Glucose 145 H Hemoglobin A1c Calcium Phosphorus Magnesium AST ALT Alkaline Phosphatase Lactate Dehydrogenase C-Reactive Protein Total Protein Albumin Triglycerides Arterial Blood Glucose Arterial Blood Ionized Calcium Urine WBC (Auto) U Epithel Cells (Auto) Urine Creatinine Random Vancomycin Coronavirus (PCR) Crossmatch 03/20/21 03/21/21 03/21/21 23:18 06:58 06:58 WBC 14.4 H RBC 3.41 L Hgb 9.5 L Hct 28.6 L MCH MCHC RDW 17.4 H Plt Count 107 L Lymph % (Auto) [place] # (Auto) Eos # (Auto) Seg Neutrophils % Lymphocytes % (Manual) Eosinophils % (Manual) Basophils % (Manual) Nucleated RBC % Seg Neutrophils # Seg Neutrophils # Man Lymphocytes # (Manual) Monocytes # (Manual) Eosinophils # (Manual) Basophils # (Manual) Percent Retic PT INR Fibrinogen D-Dimer ABG pH POC ABG pCO2 POC ABG pO2 ABG pO2 ABG HCO3 ABG O2 Saturation ABG Base Excess ABG Hemoglobin ABG Oxyhemoglobin ABG Sodium ABG Potassium ABG Chloride ABG Glucose Oxyhemoglobin Carboxyhemoglobin Sodium Potassium Chloride Carbon Dioxide BUN 60 H Creatinine 7.7 H Glucose POC Glucose 106 H Hemoglobin A1c Calcium Phosphorus Magnesium AST ALT Alkaline Phosphatase Lactate Dehydrogenase C-Reactive Protein Total Protein Albumin Triglycerides Arterial Blood Glucose Arterial Blood Ionized Calcium Urine WBC (Auto) U Epithel Cells (Auto) Urine Creatinine Random Vancomycin Coronavirus (PCR) Crossmatch 03/21/21 03/21/21 03/21/21 11:11 18:04 Unknown WBC RBC Hgb Hct MCH MCHC RDW Plt Count Lymph % (Auto) [place] # (Auto) Eos # (Auto) Seg Neutrophils % Lymphocytes % (Manual) Eosinophils % (Manual) Basophils % (Manual) Nucleated RBC % Seg Neutrophils # Seg Neutrophils # Man Lymphocytes # (Manual) Monocytes # (Manual) Eosinophils # (Manual) Basophils # (Manual) Percent Retic PT INR Fibrinogen D-Dimer ABG pH 7.270 L POC ABG pCO2 58.7 H POC ABG pO2 76.9 L ABG pO2 ABG HCO3 ABG O2 Saturation ABG Base Excess ABG Hemoglobin 9.9 L ABG Oxyhemoglobin 92.4 L ABG Sodium 135.8 L ABG Potassium 4.6 H ABG Chloride ABG Glucose Oxyhemoglobin Carboxyhemoglobin 0.1 L Sodium Potassium Chloride Carbon Dioxide BUN Creatinine Glucose POC Glucose 109 H 141 H Hemoglobin A1c Calcium Phosphorus Magnesium AST ALT Alkaline Phosphatase Lactate Dehydrogenase C-Reactive Protein Total Protein Albumin Triglycerides Arterial Blood Glucose Arterial Blood Ionized Calcium 4.5 L Urine WBC (Auto) U Epithel Cells (Auto) Urine Creatinine Random Vancomycin Coronavirus (PCR) Crossmatch 03/22/21 03/22/21 03/22/21 03:09 07:10 10:00 WBC RBC Hgb Hct MCH MCHC RDW Plt Count Lymph % (Auto) [place] # (Auto) Eos # (Auto) Seg Neutrophils % Lymphocytes % (Manual) Eosinophils % (Manual) Basophils % (Manual) Nucleated RBC % Seg Neutrophils # Seg Neutrophils # Man Lymphocytes # (Manual) Monocytes # (Manual) Eosinophils # (Manual) Basophils # (Manual) Percent Retic PT INR Fibrinogen D-Dimer ABG pH 7.206 L 7.245 L POC ABG pCO2 55.6 H POC ABG pO2 ABG pO2 90.6 H ABG HCO3 ABG O2 Saturation ABG Base Excess -4.4 L ABG Hemoglobin 9.0 L 8.4 L ABG Oxyhemoglobin ABG Sodium 123.4 L ABG Potassium 5.6 H ABG Chloride ABG Glucose 106 H Oxyhemoglobin 94.5 L Carboxyhemoglobin 0.1 L Sodium Potassium 5.4 H Chloride 96.8 L Carbon Dioxide BUN 89 H Creatinine 8.7 H Glucose 131 H POC Glucose Hemoglobin A1c Calcium Phosphorus Magnesium AST ALT Alkaline Phosphatase Lactate Dehydrogenase C-Reactive Protein 9.40 H Total Protein Albumin Triglycerides Arterial Blood Glucose 106 H Arterial Blood Ionized Calcium Urine WBC (Auto) U Epithel Cells (Auto) Urine Creatinine Random Vancomycin Coronavirus (PCR) Crossmatch 03/22/21 03/22/21 03/22/21 10:00 12:37 13:19 WBC RBC 3.05 L Hgb 8.4 L Hct 25.5 L MCH MCHC RDW 17.5 H Plt Count 108 L Lymph % (Auto) [place] # (Auto) Eos # (Auto) Seg Neutrophils % Lymphocytes % (Manual) Eosinophils % (Manual) Basophils % (Manual) Nucleated RBC % Seg Neutrophils # Seg Neutrophils # Man Lymphocytes # (Manual) Monocytes # (Manual) Eosinophils # (Manual) Basophils # (Manual) Percent Retic PT INR Fibrinogen D-Dimer ABG pH POC ABG pCO2 POC ABG pO2 ABG pO2 ABG HCO3 ABG O2 Saturation ABG Base Excess ABG Hemoglobin ABG Oxyhemoglobin ABG Sodium ABG Potassium ABG Chloride ABG Glucose Oxyhemoglobin Carboxyhemoglobin Sodium Potassium Chloride Carbon Dioxide BUN Creatinine 8.7 H Glucose POC Glucose 140 H Hemoglobin A1c Calcium Phosphorus Magnesium AST ALT Alkaline Phosphatase Lactate Dehydrogenase C-Reactive Protein Total Protein Albumin Triglycerides Arterial Blood Glucose Arterial Blood Ionized Calcium Urine WBC (Auto) U Epithel Cells (Auto) Urine Creatinine Random Vancomycin Coronavirus (PCR) Crossmatch 03/22/21 03/22/21 03/22/21 13:40 17:14 18:21 WBC RBC Hgb Hct MCH MCHC RDW Plt Count Lymph % (Auto) [place] # (Auto) Eos # (Auto) Seg Neutrophils % Lymphocytes % (Manual) Eosinophils % (Manual) Basophils % (Manual) Nucleated RBC % Seg Neutrophils # Seg Neutrophils # Man Lymphocytes # (Manual) Monocytes # (Manual) Eosinophils # (Manual) Basophils # (Manual) Percent Retic PT 15.8 H INR 1.14 H Fibrinogen D-Dimer > 20778 H ABG pH POC ABG pCO2 POC ABG pO2 ABG pO2 ABG HCO3 ABG O2 Saturation ABG Base Excess ABG Hemoglobin ABG Oxyhemoglobin ABG Sodium ABG Potassium ABG Chloride ABG Glucose Oxyhemoglobin Carboxyhemoglobin Sodium Potassium Chloride Carbon Dioxide BUN Creatinine Glucose POC Glucose 117 H 112 H Hemoglobin A1c Calcium Phosphorus Magnesium AST ALT Alkaline Phosphatase Lactate Dehydrogenase C-Reactive Protein Total Protein Albumin Triglycerides Arterial Blood Glucose Arterial Blood Ionized Calcium Urine WBC (Auto) U Epithel Cells (Auto) Urine Creatinine Random Vancomycin Coronavirus (PCR) Crossmatch 03/22/21 03/22/21 03/23/21 21:25 22:57 04:30 WBC RBC Hgb Hct MCH MCHC RDW Plt Count Lymph % (Auto) [place] # (Auto) Eos # (Auto) Seg Neutrophils % Lymphocytes % (Manual) Eosinophils % (Manual) Basophils % (Manual) Nucleated RBC % Seg Neutrophils # Seg Neutrophils # Man Lymphocytes # (Manual) Monocytes # (Manual) Eosinophils # (Manual) Basophils # (Manual) Percent Retic PT INR Fibrinogen D-Dimer ABG pH 7.188 L* POC ABG pCO2 POC ABG pO2 ABG pO2 97.9 H ABG HCO3 ABG O2 Saturation ABG Base Excess -3.7 L ABG Hemoglobin 9.2 L ABG Oxyhemoglobin ABG Sodium ABG Potassium ABG Chloride ABG Glucose Oxyhemoglobin 94.4 L Carboxyhemoglobin Sodium Potassium Chloride Carbon Dioxide BUN Creatinine Glucose POC Glucose 106 H Hemoglobin A1c Calcium Phosphorus Magnesium AST ALT Alkaline Phosphatase Lactate Dehydrogenase C-Reactive Protein Total Protein Albumin Triglycerides 381 H Arterial Blood Glucose Arterial Blood Ionized Calcium Urine WBC (Auto) U Epithel Cells (Auto) Urine Creatinine Random Vancomycin Coronavirus (PCR) Crossmatch 03/23/21 03/23/21 03/23/21 04:30 04:30 05:37 WBC 20.1 H RBC 3.17 L Hgb 8.6 L Hct 27.2 L MCH 27 L MCHC RDW 17.4 H Plt Count 118 L Lymph % (Auto) [place] # (Auto) Eos # (Auto) Seg Neutrophils % Lymphocytes % (Manual) Eosinophils % (Manual) Basophils % (Manual) Nucleated RBC % Seg Neutrophils # Seg Neutrophils # Man Lymphocytes # (Manual) Monocytes # (Manual) Eosinophils # (Manual) Basophils # (Manual) Percent Retic PT INR Fibrinogen D-Dimer ABG pH POC ABG pCO2 POC ABG pO2 ABG pO2 ABG HCO3 ABG O2 Saturation ABG Base Excess ABG Hemoglobin ABG Oxyhemoglobin ABG Sodium ABG Potassium ABG Chloride ABG Glucose Oxyhemoglobin Carboxyhemoglobin Sodium Potassium 5.2 H Chloride 97.1 L Carbon Dioxide 21 L BUN 82 H Creatinine 9.1 H Glucose 109 H POC Glucose 130 H Hemoglobin A1c Calcium Phosphorus 10.80 H Magnesium 3.50 H AST ALT Alkaline Phosphatase Lactate Dehydrogenase C-Reactive Protein Total Protein Albumin Triglycerides Arterial Blood Glucose Arterial Blood Ionized Calcium Urine WBC (Auto) U Epithel Cells (Auto) Urine Creatinine Random Vancomycin Coronavirus (PCR) Crossmatch 03/23/21 03/23/21 03/23/21 08:44 11:30 16:09 WBC RBC Hgb Hct MCH MCHC RDW Plt Count Lymph % (Auto) [place] # (Auto) Eos # (Auto) Seg Neutrophils % Lymphocytes % (Manual) Eosinophils % (Manual) Basophils % (Manual) Nucleated RBC % Seg Neutrophils # Seg Neutrophils # Man Lymphocytes # (Manual) Monocytes # (Manual) Eosinophils # (Manual) Basophils # (Manual) Percent Retic PT INR Fibrinogen D-Dimer ABG pH 7.190 L POC ABG pCO2 57.9 H POC ABG pO2 79.2 L ABG pO2 ABG HCO3 ABG O2 Saturation ABG Base Excess ABG Hemoglobin 11.8 L ABG Oxyhemoglobin 92.3 L ABG Sodium 131.0 L ABG Potassium 5.0 H ABG Chloride ABG Glucose 122 H Oxyhemoglobin Carboxyhemoglobin 0.4 L Sodium Potassium Chloride Carbon Dioxide BUN Creatinine Glucose POC Glucose 129 H 148 H Hemoglobin A1c Calcium Phosphorus Magnesium AST ALT Alkaline Phosphatase Lactate Dehydrogenase C-Reactive Protein Total Protein Albumin Triglycerides Arterial Blood Glucose 122 H Arterial Blood Ionized Calcium 4.4 L Urine WBC (Auto) U Epithel Cells (Auto) Urine Creatinine Random Vancomycin Coronavirus (PCR) Crossmatch 03/23/21 03/24/21 03/24/21 21:00 03:35 04:00 WBC 17.8 H RBC 2.96 L Hgb 8.1 L Hct 25.0 L MCH 27 L MCHC RDW 17.7 H Plt Count 124 L Lymph % (Auto) [place] # (Auto) Eos # (Auto) Seg Neutrophils % Lymphocytes % (Manual) Eosinophils % (Manual) Basophils % (Manual) Nucleated RBC % Seg Neutrophils # Seg Neutrophils # Man Lymphocytes # (Manual) Monocytes # (Manual) Eosinophils # (Manual) Basophils # (Manual) Percent Retic PT INR Fibrinogen D-Dimer ABG pH 7.223 L POC ABG pCO2 50.3 H POC ABG pO2 114.4 H ABG pO2 ABG HCO3 ABG O2 Saturation ABG Base Excess ABG Hemoglobin 8.8 L ABG Oxyhemoglobin ABG Sodium 130.4 L ABG Potassium 5.1 H ABG Chloride ABG Glucose 126 H Oxyhemoglobin Carboxyhemoglobin 0.2 L Sodium Potassium Chloride Carbon Dioxide BUN Creatinine Glucose POC Glucose 148 H Hemoglobin A1c Calcium Phosphorus Magnesium AST ALT Alkaline Phosphatase Lactate Dehydrogenase C-Reactive Protein Total Protein Albumin Triglycerides Arterial Blood Glucose 126 H Arterial Blood Ionized Calcium 4.4 L Urine WBC (Auto) U Epithel Cells (Auto) Urine Creatinine Random Vancomycin Coronavirus (PCR) Crossmatch 03/24/21 03/24/21 03/24/21 04:00 06:49 12:29 WBC RBC Hgb Hct MCH MCHC RDW Plt Count Lymph % (Auto) [place] # (Auto) Eos # (Auto) Seg Neutrophils % Lymphocytes % (Manual) Eosinophils % (Manual) Basophils % (Manual) Nucleated RBC % Seg Neutrophils # Seg Neutrophils # Man Lymphocytes # (Manual) Monocytes # (Manual) Eosinophils # (Manual) Basophils # (Manual) Percent Retic PT INR Fibrinogen D-Dimer ABG pH POC ABG pCO2 POC ABG pO2 ABG pO2 ABG HCO3 ABG O2 Saturation ABG Base Excess ABG Hemoglobin ABG Oxyhemoglobin ABG Sodium ABG Potassium ABG Chloride ABG Glucose Oxyhemoglobin Carboxyhemoglobin Sodium Potassium Chloride 95.6 L Carbon Dioxide 20 L BUN 108 H Creatinine 10.8 H Glucose 155 H POC Glucose 136 H 142 H Hemoglobin A1c Calcium Phosphorus Magnesium AST ALT Alkaline Phosphatase Lactate Dehydrogenase C-Reactive Protein Total Protein Albumin Triglycerides Arterial Blood Glucose Arterial Blood Ionized Calcium Urine WBC (Auto) U Epithel Cells (Auto) Urine Creatinine Random Vancomycin Coronavirus (PCR) Crossmatch 03/24/21 03/25/21 03/25/21 21:35 00:15 05:51 WBC RBC Hgb Hct MCH MCHC RDW Plt Count Lymph % (Auto) [place] # (Auto) Eos # (Auto) Seg Neutrophils % Lymphocytes % (Manual) Eosinophils % (Manual) Basophils % (Manual) Nucleated RBC % Seg Neutrophils # Seg Neutrophils # Man Lymphocytes # (Manual) Monocytes # (Manual) Eosinophils # (Manual) Basophils # (Manual) Percent Retic PT INR Fibrinogen D-Dimer ABG pH 7.241 L POC ABG pCO2 POC ABG pO2 ABG pO2 72.4 L ABG HCO3 ABG O2 Saturation 90.3 L ABG Base Excess ABG Hemoglobin 7.9 L ABG Oxyhemoglobin ABG Sodium ABG Potassium ABG Chloride ABG Glucose Oxyhemoglobin 88.4 L Carboxyhemoglobin Sodium Potassium Chloride Carbon Dioxide BUN Creatinine Glucose POC Glucose 110 H 121 H Hemoglobin A1c Calcium Phosphorus Magnesium AST ALT Alkaline Phosphatase Lactate Dehydrogenase C-Reactive Protein Total Protein Albumin Triglycerides Arterial Blood Glucose Arterial Blood Ionized Calcium Urine WBC (Auto) U Epithel Cells (Auto) Urine Creatinine Random Vancomycin Coronavirus (PCR) Crossmatch 03/25/21 03/25/21 03/25/21 05:54 05:54 12:21 WBC 12.4 H RBC 2.52 L Hgb 6.9 L Hct 21.1 L MCH MCHC RDW 17.4 H Plt Count 102 L Lymph % (Auto) [place] # (Auto) Eos # (Auto) Seg Neutrophils % Lymphocytes % (Manual) Eosinophils % (Manual) Basophils % (Manual) Nucleated RBC % Seg Neutrophils # Seg Neutrophils # Man Lymphocytes # (Manual) Monocytes # (Manual) Eosinophils # (Manual) Basophils # (Manual) Percent Retic PT INR Fibrinogen D-Dimer ABG pH POC ABG pCO2 POC ABG pO2 ABG pO2 ABG HCO3 ABG O2 Saturation ABG Base Excess ABG Hemoglobin ABG Oxyhemoglobin ABG Sodium ABG Potassium ABG Chloride ABG Glucose Oxyhemoglobin Carboxyhemoglobin Sodium Potassium Chloride 96.7 L Carbon Dioxide BUN 81 H Creatinine 8.1 H Glucose 116 H POC Glucose 138 H Hemoglobin A1c Calcium 8.2 L Phosphorus Magnesium AST ALT Alkaline Phosphatase Lactate Dehydrogenase C-Reactive Protein Total Protein Albumin Triglycerides Arterial Blood Glucose Arterial Blood Ionized Calcium Urine WBC (Auto) U Epithel Cells (Auto) Urine Creatinine Random Vancomycin Coronavirus (PCR) Crossmatch 03/25/21 03/25/21 03/25/21 13:45 17:32 21:30 WBC RBC Hgb Hct MCH MCHC RDW Plt Count Lymph % (Auto) [place] # (Auto) Eos # (Auto) Seg Neutrophils % Lymphocytes % (Manual) Eosinophils % (Manual) Basophils % (Manual) Nucleated RBC % Seg Neutrophils # Seg Neutrophils # Man Lymphocytes # (Manual) Monocytes # (Manual) Eosinophils # (Manual) Basophils # (Manual) Percent Retic PT INR Fibrinogen D-Dimer ABG pH POC ABG pCO2 POC ABG pO2 ABG pO2 70.2 L ABG HCO3 ABG O2 Saturation ABG Base Excess ABG Hemoglobin 6.8 L ABG Oxyhemoglobin ABG Sodium ABG Potassium ABG Chloride ABG Glucose Oxyhemoglobin 94.5 L Carboxyhemoglobin Sodium Potassium Chloride Carbon Dioxide BUN Creatinine Glucose POC Glucose 110 H Hemoglobin A1c Calcium Phosphorus Magnesium AST ALT Alkaline Phosphatase Lactate Dehydrogenase C-Reactive Protein Total Protein Albumin Triglycerides Arterial Blood Glucose Arterial Blood Ionized Calcium Urine WBC (Auto) U Epithel Cells (Auto) Urine Creatinine Random Vancomycin Coronavirus (PCR) Crossmatch See Detail 03/25/21 03/25/21 03/26/21 23:29 Unknown 05:15 WBC 12.4 H 14.0 H RBC 2.49 L 2.83 L Hgb 6.8 L 7.6 L Hct 20.9 L 23.6 L MCH 27 L 27 L MCHC RDW 18.0 H 17.1 H Plt Count 107 L 116 L Lymph % (Auto) [place] # (Auto) Eos # (Auto) Seg Neutrophils % Lymphocytes % (Manual) Eosinophils % (Manual) Basophils % (Manual) Nucleated RBC % Seg Neutrophils # Seg Neutrophils # Man Lymphocytes # (Manual) Monocytes # (Manual) Eosinophils # (Manual) Basophils # (Manual) Percent Retic PT INR Fibrinogen D-Dimer ABG pH POC ABG pCO2 POC ABG pO2 ABG pO2 ABG HCO3 ABG O2 Saturation ABG Base Excess ABG Hemoglobin ABG Oxyhemoglobin ABG Sodium ABG Potassium ABG Chloride ABG Glucose Oxyhemoglobin Carboxyhemoglobin Sodium Potassium Chloride Carbon Dioxide BUN Creatinine Glucose POC Glucose 113 H Hemoglobin A1c Calcium Phosphorus Magnesium AST ALT Alkaline Phosphatase Lactate Dehydrogenase C-Reactive Protein Total Protein Albumin Triglycerides Arterial Blood Glucose Arterial Blood Ionized Calcium Urine WBC (Auto) U Epithel Cells (Auto) Urine Creatinine Random Vancomycin Coronavirus (PCR) Crossmatch 03/26/21 03/26/21 03/26/21 05:15 05:35 09:50 WBC RBC Hgb Hct MCH MCHC RDW Plt Count Lymph % (Auto) [place] # (Auto) Eos # (Auto) Seg Neutrophils % Lymphocytes % (Manual) Eosinophils % (Manual) Basophils % (Manual) Nucleated RBC % Seg Neutrophils # Seg Neutrophils # Man Lymphocytes # (Manual) Monocytes # (Manual) Eosinophils # (Manual) Basophils # (Manual) Percent Retic PT INR Fibrinogen D-Dimer ABG pH POC ABG pCO2 POC ABG pO2 ABG pO2 79.9 L ABG HCO3 ABG O2 Saturation ABG Base Excess ABG Hemoglobin 7.1 L ABG Oxyhemoglobin ABG Sodium ABG Potassium ABG Chloride ABG Glucose Oxyhemoglobin 94.9 L Carboxyhemoglobin Sodium Potassium 3.4 L Chloride Carbon Dioxide BUN 70 H Creatinine 7.3 H Glucose 142 H POC Glucose 130 H Hemoglobin A1c Calcium 8.2 L Phosphorus Magnesium AST ALT Alkaline Phosphatase Lactate Dehydrogenase C-Reactive Protein Total Protein Albumin Triglycerides 254 H Arterial Blood Glucose Arterial Blood Ionized Calcium Urine WBC (Auto) U Epithel Cells (Auto) Urine Creatinine Random Vancomycin Coronavirus (PCR) Crossmatch 03/26/21 03/26/21 03/26/21 11:45 16:36 23:33 WBC RBC Hgb Hct MCH MCHC RDW Plt Count Lymph % (Auto) [place] # (Auto) Eos # (Auto) Seg Neutrophils % Lymphocytes % (Manual) Eosinophils % (Manual) Basophils % (Manual) Nucleated RBC % Seg Neutrophils # Seg Neutrophils # Man Lymphocytes # (Manual) Monocytes # (Manual) Eosinophils # (Manual) Basophils # (Manual) Percent Retic PT INR Fibrinogen D-Dimer ABG pH POC ABG pCO2 POC ABG pO2 ABG pO2 ABG HCO3 ABG O2 Saturation ABG Base Excess ABG Hemoglobin ABG Oxyhemoglobin ABG Sodium ABG Potassium ABG Chloride ABG Glucose Oxyhemoglobin Carboxyhemoglobin Sodium Potassium Chloride Carbon Dioxide BUN Creatinine Glucose POC Glucose 123 H 121 H 120 H Hemoglobin A1c Calcium Phosphorus Magnesium AST ALT Alkaline Phosphatase Lactate Dehydrogenase C-Reactive Protein Total Protein Albumin Triglycerides Arterial Blood Glucose Arterial Blood Ionized Calcium Urine WBC (Auto) U Epithel Cells (Auto) Urine Creatinine Random Vancomycin Coronavirus (PCR) Crossmatch 03/27/21 03/27/21 03/27/21 03:20 04:14 08:20 WBC 13.2 H RBC 2.82 L Hgb 7.9 L Hct 23.5 L MCH MCHC RDW 17.3 H Plt Count 125 L Lymph % (Auto) [place] # (Auto) Eos # (Auto) Seg Neutrophils % Lymphocytes % (Manual) Eosinophils % (Manual) Basophils % (Manual) Nucleated RBC % Seg Neutrophils # Seg Neutrophils # Man Lymphocytes # (Manual) Monocytes # (Manual) Eosinophils # (Manual) Basophils # (Manual) Percent Retic PT INR Fibrinogen D-Dimer ABG pH POC ABG pCO2 50.0 H POC ABG pO2 58.3 L ABG pO2 ABG HCO3 ABG O2 Saturation ABG Base Excess ABG Hemoglobin 11.3 L ABG Oxyhemoglobin 88.5 L ABG Sodium ABG Potassium ABG Chloride ABG Glucose 132 H Oxyhemoglobin Carboxyhemoglobin 0.2 L Sodium Potassium Chloride Carbon Dioxide BUN Creatinine Glucose POC Glucose 119 H Hemoglobin A1c Calcium Phosphorus Magnesium AST ALT Alkaline Phosphatase Lactate Dehydrogenase C-Reactive Protein Total Protein Albumin Triglycerides Arterial Blood Glucose 132 H Arterial Blood Ionized Calcium Urine WBC (Auto) U Epithel Cells (Auto) Urine Creatinine Random Vancomycin Coronavirus (PCR) Crossmatch 03/27/21 03/27/21 03/27/21 08:20 11:39 17:32 WBC RBC Hgb Hct MCH MCHC RDW Plt Count Lymph % (Auto) [place] # (Auto) Eos # (Auto) Seg Neutrophils % Lymphocytes % (Manual) Eosinophils % (Manual) Basophils % (Manual) Nucleated RBC % Seg Neutrophils # Seg Neutrophils # Man Lymphocytes # (Manual) Monocytes # (Manual) Eosinophils # (Manual) Basophils # (Manual) Percent Retic PT INR Fibrinogen D-Dimer ABG pH POC ABG pCO2 POC ABG pO2 ABG pO2 ABG HCO3 ABG O2 Saturation ABG Base Excess ABG Hemoglobin ABG Oxyhemoglobin ABG Sodium ABG Potassium ABG Chloride ABG Glucose Oxyhemoglobin Carboxyhemoglobin Sodium Potassium Chloride Carbon Dioxide BUN 57 H Creatinine 6.8 H Glucose 131 H POC Glucose 121 H 126 H Hemoglobin A1c Calcium Phosphorus Magnesium AST ALT Alkaline Phosphatase Lactate Dehydrogenase C-Reactive Protein Total Protein Albumin Triglycerides Arterial Blood Glucose Arterial Blood Ionized Calcium Urine WBC (Auto) U Epithel Cells (Auto) Urine Creatinine Random Vancomycin Coronavirus (PCR) Crossmatch 03/28/21 03/28/21 03/28/21 00:10 04:45 05:25 WBC RBC Hgb Hct MCH MCHC RDW Plt Count Lymph % (Auto) [place] # (Auto) Eos # (Auto) Seg Neutrophils % Lymphocytes % (Manual) Eosinophils % (Manual) Basophils % (Manual) Nucleated RBC % Seg Neutrophils # Seg Neutrophils # Man Lymphocytes # (Manual) Monocytes # (Manual) Eosinophils # (Manual) Basophils # (Manual) Percent Retic PT INR Fibrinogen D-Dimer ABG pH POC ABG pCO2 POC ABG pO2 ABG pO2 57.6 L ABG HCO3 27.1 H ABG O2 Saturation 88.5 L ABG Base Excess ABG Hemoglobin ABG Oxyhemoglobin ABG Sodium ABG Potassium ABG Chloride ABG Glucose Oxyhemoglobin 86.6 L Carboxyhemoglobin Sodium Potassium Chloride Carbon Dioxide BUN Creatinine Glucose POC Glucose 113 H 121 H Hemoglobin A1c Calcium Phosphorus Magnesium AST ALT Alkaline Phosphatase Lactate Dehydrogenase C-Reactive Protein Total Protein Albumin Triglycerides Arterial Blood Glucose Arterial Blood Ionized Calcium Urine WBC (Auto) U Epithel Cells (Auto) Urine Creatinine Random Vancomycin Coronavirus (PCR) Crossmatch 03/28/21 03/28/21 03/28/21 09:37 09:37 11:48 WBC 16.3 H RBC 2.92 L Hgb 8.2 L Hct 24.8 L MCH MCHC RDW 17.5 H Plt Count Lymph % (Auto) 10.7 L [place] # (Auto) 0.9 H Eos # (Auto) 0.6 H Seg Neutrophils % 80.0 H Lymphocytes % (Manual) Eosinophils % (Manual) Basophils % (Manual) Nucleated RBC % Seg Neutrophils # 13.0 H Seg Neutrophils # Man Lymphocytes # (Manual) Monocytes # (Manual) Eosinophils # (Manual) Basophils # (Manual) Percent Retic PT INR Fibrinogen D-Dimer ABG pH POC ABG pCO2 POC ABG pO2 ABG pO2 ABG HCO3 ABG O2 Saturation ABG Base Excess ABG Hemoglobin ABG Oxyhemoglobin ABG Sodium ABG Potassium ABG Chloride ABG Glucose Oxyhemoglobin Carboxyhemoglobin Sodium Potassium Chloride Carbon Dioxide BUN 61 H Creatinine 7.7 H Glucose 148 H POC Glucose 123 H Hemoglobin A1c Calcium Phosphorus Magnesium AST ALT Alkaline Phosphatase Lactate Dehydrogenase C-Reactive Protein Total Protein Albumin Triglycerides Arterial Blood Glucose Arterial Blood Ionized Calcium Urine WBC (Auto) U Epithel Cells (Auto) Urine Creatinine Random Vancomycin Coronavirus (PCR) Crossmatch 03/28/21 03/28/21 03/28/21 17:33 21:08 23:38 WBC RBC Hgb Hct MCH MCHC RDW Plt Count Lymph % (Auto) [place] # (Auto) Eos # (Auto) Seg Neutrophils % Lymphocytes % (Manual) Eosinophils % (Manual) Basophils % (Manual) Nucleated RBC % Seg Neutrophils # Seg Neutrophils # Man Lymphocytes # (Manual) Monocytes # (Manual) Eosinophils # (Manual) Basophils # (Manual) Percent Retic PT INR Fibrinogen D-Dimer ABG pH POC ABG pCO2 POC ABG pO2 80.5 L ABG pO2 ABG HCO3 ABG O2 Saturation ABG Base Excess ABG Hemoglobin 9.5 L ABG Oxyhemoglobin ABG Sodium 133.3 L ABG Potassium ABG Chloride ABG Glucose 134 H Oxyhemoglobin Carboxyhemoglobin 0.3 L Sodium Potassium Chloride Carbon Dioxide BUN Creatinine Glucose POC Glucose 128 H 112 H Hemoglobin A1c Calcium Phosphorus Magnesium AST ALT Alkaline Phosphatase Lactate Dehydrogenase C-Reactive Protein Total Protein Albumin Triglycerides Arterial Blood Glucose 134 H Arterial Blood Ionized Calcium Urine WBC (Auto) U Epithel Cells (Auto) Urine Creatinine Random Vancomycin Coronavirus (PCR) Crossmatch 03/29/21 03/29/21 03/29/21 04:45 04:45 04:45 WBC 17.5 H RBC 3.15 L Hgb 8.8 L Hct 27.2 L MCH MCHC RDW 17.9 H Plt Count 132 L Lymph % (Auto) [place] # (Auto) Eos # (Auto) Seg Neutrophils % Lymphocytes % (Manual) Eosinophils % (Manual) Basophils % (Manual) Nucleated RBC % Seg Neutrophils # Seg Neutrophils # Man Lymphocytes # (Manual) Monocytes # (Manual) Eosinophils # (Manual) Basophils # (Manual) Percent Retic PT INR Fibrinogen D-Dimer ABG pH POC ABG pCO2 POC ABG pO2 ABG pO2 ABG HCO3 ABG O2 Saturation ABG Base Excess ABG Hemoglobin ABG Oxyhemoglobin ABG Sodium ABG Potassium ABG Chloride ABG Glucose Oxyhemoglobin Carboxyhemoglobin Sodium Potassium Chloride 97.7 L Carbon Dioxide 21 L BUN 78 H Creatinine 9.5 H Glucose 132 H POC Glucose Hemoglobin A1c Calcium Phosphorus Magnesium AST ALT Alkaline Phosphatase Lactate Dehydrogenase C-Reactive Protein Total Protein Albumin 2.2 L Triglycerides 385 H Arterial Blood Glucose Arterial Blood Ionized Calcium Urine WBC (Auto) U Epithel Cells (Auto) Urine Creatinine Random Vancomycin Coronavirus (PCR) Crossmatch 03/29/21 03/29/21 03/29/21 11:35 16:50 21:06 WBC RBC Hgb Hct MCH MCHC RDW Plt Count Lymph % (Auto) [place] # (Auto) Eos # (Auto) Seg Neutrophils % Lymphocytes % (Manual) Eosinophils % (Manual) Basophils % (Manual) Nucleated RBC % Seg Neutrophils # Seg Neutrophils # Man Lymphocytes # (Manual) Monocytes # (Manual) Eosinophils # (Manual) Basophils # (Manual) Percent Retic PT INR Fibrinogen D-Dimer ABG pH POC ABG pCO2 POC ABG pO2 ABG pO2 64.9 L ABG HCO3 ABG O2 Saturation ABG Base Excess -5.2 L ABG Hemoglobin ABG Oxyhemoglobin ABG Sodium ABG Potassium ABG Chloride ABG Glucose Oxyhemoglobin 85.1 L Carboxyhemoglobin Sodium Potassium Chloride Carbon Dioxide BUN Creatinine Glucose POC Glucose 148 H 133 H Hemoglobin A1c Calcium Phosphorus Magnesium AST ALT Alkaline Phosphatase Lactate Dehydrogenase C-Reactive Protein Total Protein Albumin Triglycerides Arterial Blood Glucose Arterial Blood Ionized Calcium Urine WBC (Auto) U Epithel Cells (Auto) Urine Creatinine Random Vancomycin Coronavirus (PCR) Crossmatch 03/29/21 03/30/21 03/30/21 Unknown 00:13 04:00 WBC 15.7 H RBC 3.18 L Hgb 8.6 L Hct 27.3 L MCH 27 L MCHC RDW 18.0 H Plt Count 86 L Lymph % (Auto) [place] # (Auto) Eos # (Auto) Seg Neutrophils % Lymphocytes % (Manual) Eosinophils % (Manual) Basophils % (Manual) Nucleated RBC % Seg Neutrophils # Seg Neutrophils # Man Lymphocytes # (Manual) Monocytes # (Manual) Eosinophils # (Manual) Basophils # (Manual) Percent Retic PT INR Fibrinogen D-Dimer ABG pH 7.258 L POC ABG pCO2 POC ABG pO2 ABG pO2 ABG HCO3 ABG O2 Saturation ABG Base Excess -4.9 L ABG Hemoglobin 8.8 L ABG Oxyhemoglobin ABG Sodium ABG Potassium ABG Chloride ABG Glucose Oxyhemoglobin 93.9 L Carboxyhemoglobin Sodium Potassium Chloride Carbon Dioxide BUN Creatinine Glucose POC Glucose 129 H Hemoglobin A1c Calcium Phosphorus Magnesium AST ALT Alkaline Phosphatase Lactate Dehydrogenase C-Reactive Protein Total Protein Albumin Triglycerides Arterial Blood Glucose Arterial Blood Ionized Calcium Urine WBC (Auto) U Epithel Cells (Auto) Urine Creatinine Random Vancomycin Coronavirus (PCR) Crossmatch 03/30/21 03/30/21 03/30/21 04:00 04:00 06:02 WBC RBC Hgb Hct MCH MCHC RDW Plt Count Lymph % (Auto) [place] # (Auto) Eos # (Auto) Seg Neutrophils % Lymphocytes % (Manual) Eosinophils % (Manual) Basophils % (Manual) Nucleated RBC % Seg Neutrophils # Seg Neutrophils # Man Lymphocytes # (Manual) Monocytes # (Manual) Eosinophils # (Manual) Basophils # (Manual) Percent Retic PT INR Fibrinogen D-Dimer 2607.12 H ABG pH POC ABG pCO2 POC ABG pO2 ABG pO2 ABG HCO3 ABG O2 Saturation ABG Base Excess ABG Hemoglobin ABG Oxyhemoglobin ABG Sodium ABG Potassium ABG Chloride ABG Glucose Oxyhemoglobin Carboxyhemoglobin Sodium 133 L Potassium 5.2 H D Chloride 91.5 L Carbon Dioxide 18 L BUN 101 H Creatinine 10.6 H Glucose 149 H POC Glucose 130 H Hemoglobin A1c Calcium Phosphorus 10.30 H Magnesium AST ALT Alkaline Phosphatase Lactate Dehydrogenase C-Reactive Protein 21.50 H Total Protein Albumin Triglycerides Arterial Blood Glucose Arterial Blood Ionized Calcium Urine WBC (Auto) U Epithel Cells (Auto) Urine Creatinine Random Vancomycin Coronavirus (PCR) Crossmatch 03/30/21 03/30/21 03/30/21 10:36 11:48 17:20 WBC RBC Hgb Hct MCH MCHC RDW Plt Count Lymph % (Auto) [place] # (Auto) Eos # (Auto) Seg Neutrophils % Lymphocytes % (Manual) Eosinophils % (Manual) Basophils % (Manual) Nucleated RBC % Seg Neutrophils # Seg Neutrophils # Man Lymphocytes # (Manual) Monocytes # (Manual) Eosinophils # (Manual) Basophils # (Manual) Percent Retic PT INR Fibrinogen D-Dimer ABG pH 7.224 L POC ABG pCO2 49.1 H POC ABG pO2 61.5 L ABG pO2 ABG HCO3 ABG O2 Saturation ABG Base Excess ABG Hemoglobin 10.2 L ABG Oxyhemoglobin 86.2 L ABG Sodium 129.6 L ABG Potassium 5.4 H ABG Chloride 96.0 L ABG Glucose 161 H Oxyhemoglobin Carboxyhemoglobin Sodium Potassium Chloride Carbon Dioxide BUN Creatinine Glucose POC Glucose 163 H 130 H Hemoglobin A1c Calcium Phosphorus Magnesium AST ALT Alkaline Phosphatase Lactate Dehydrogenase C-Reactive Protein Total Protein Albumin Triglycerides Arterial Blood Glucose 161 H Arterial Blood Ionized Calcium 4.4 L Urine WBC (Auto) U Epithel Cells (Auto) Urine Creatinine Random Vancomycin Coronavirus (PCR) Crossmatch 03/30/21 03/31/21 03/31/21 23:49 00:28 05:20 WBC 17.3 H RBC 2.99 L Hgb 8.2 L Hct 25.3 L MCH 27 L MCHC RDW 18.3 H Plt Count 126 L Lymph % (Auto) [place] # (Auto) Eos # (Auto) Seg Neutrophils % Lymphocytes % (Manual) Eosinophils % (Manual) Basophils % (Manual) Nucleated RBC % Seg Neutrophils # Seg Neutrophils # Man Lymphocytes # (Manual) Monocytes # (Manual) Eosinophils # (Manual) Basophils # (Manual) Percent Retic PT INR Fibrinogen D-Dimer ABG pH 7.249 L POC ABG pCO2 POC ABG pO2 77.7 L ABG pO2 ABG HCO3 ABG O2 Saturation ABG Base Excess ABG Hemoglobin 9.0 L ABG Oxyhemoglobin 92.9 L ABG Sodium 130.4 L ABG Potassium 4.7 H ABG Chloride ABG Glucose 166 H Oxyhemoglobin Carboxyhemoglobin 0.4 L Sodium Potassium Chloride Carbon Dioxide BUN Creatinine Glucose POC Glucose 143 H Hemoglobin A1c Calcium Phosphorus Magnesium AST ALT Alkaline Phosphatase Lactate Dehydrogenase C-Reactive Protein Total Protein Albumin Triglycerides Arterial Blood Glucose 166 H Arterial Blood Ionized Calcium 4.3 L Urine WBC (Auto) U Epithel Cells (Auto) Urine Creatinine Random Vancomycin Coronavirus (PCR) Crossmatch 03/31/21 03/31/21 03/31/21 05:20 06:18 09:44 WBC RBC Hgb Hct MCH MCHC RDW Plt Count Lymph % (Auto) [place] # (Auto) Eos # (Auto) Seg Neutrophils % Lymphocytes % (Manual) Eosinophils % (Manual) Basophils % (Manual) Nucleated RBC % Seg Neutrophils # Seg Neutrophils # Man Lymphocytes # (Manual) Monocytes # (Manual) Eosinophils # (Manual) Basophils # (Manual) Percent Retic PT INR Fibrinogen D-Dimer ABG pH 7.247 L POC ABG pCO2 POC ABG pO2 ABG pO2 ABG HCO3 ABG O2 Saturation 94.4 L ABG Base Excess -5.1 L ABG Hemoglobin 8.2 L ABG Oxyhemoglobin ABG Sodium ABG Potassium ABG Chloride ABG Glucose Oxyhemoglobin 92.4 L Carboxyhemoglobin Sodium Potassium Chloride Carbon Dioxide BUN Creatinine Glucose POC Glucose 155 H Hemoglobin A1c Calcium Phosphorus 8.20 H D Magnesium AST ALT Alkaline Phosphatase Lactate Dehydrogenase C-Reactive Protein Total Protein Albumin Triglycerides Arterial Blood Glucose Arterial Blood Ionized Calcium Urine WBC (Auto) U Epithel Cells (Auto) Urine Creatinine Random Vancomycin Coronavirus (PCR) Crossmatch 03/31/21 03/31/21 03/31/21 09:49 09:55 09:55 WBC RBC Hgb Hct MCH MCHC RDW Plt Count Lymph % (Auto) [place] # (Auto) Eos # (Auto) Seg Neutrophils % Lymphocytes % (Manual) Eosinophils % (Manual) Basophils % (Manual) Nucleated RBC % Seg Neutrophils # Seg Neutrophils # Man Lymphocytes # (Manual) Monocytes # (Manual) Eosinophils # (Manual) Basophils # (Manual) Percent Retic 4.52 H PT 16.5 H INR 1.20 H Fibrinogen D-Dimer ABG pH POC ABG pCO2 POC ABG pO2 ABG pO2 ABG HCO3 ABG O2 Saturation ABG Base Excess ABG Hemoglobin ABG Oxyhemoglobin ABG Sodium ABG Potassium ABG Chloride ABG Glucose Oxyhemoglobin Carboxyhemoglobin Sodium 133 L Potassium Chloride 92.8 L Carbon Dioxide 20 L BUN 87 H Creatinine 8.9 H Glucose 177 H POC Glucose Hemoglobin A1c Calcium 8.2 L Phosphorus Magnesium AST 169 H ALT Alkaline Phosphatase 187 H Lactate Dehydrogenase C-Reactive Protein Total Protein Albumin 2.3 L Triglycerides Arterial Blood Glucose Arterial Blood Ionized Calcium Urine WBC (Auto) U Epithel Cells (Auto) Urine Creatinine Random Vancomycin Coronavirus (PCR) Crossmatch 03/31/21 03/31/21 03/31/21 09:55 09:55 11:25 WBC RBC Hgb Hct MCH MCHC RDW Plt Count Lymph % (Auto) [place] # (Auto) Eos # (Auto) Seg Neutrophils % Lymphocytes % (Manual) Eosinophils % (Manual) Basophils % (Manual) Nucleated RBC % Seg Neutrophils # Seg Neutrophils # Man Lymphocytes # (Manual) Monocytes # (Manual) Eosinophils # (Manual) Basophils # (Manual) Percent Retic PT INR Fibrinogen 491 H D-Dimer ABG pH POC ABG pCO2 POC ABG pO2 ABG pO2 ABG HCO3 ABG O2 Saturation ABG Base Excess ABG Hemoglobin ABG Oxyhemoglobin ABG Sodium ABG Potassium ABG Chloride ABG Glucose Oxyhemoglobin Carboxyhemoglobin Sodium Potassium Chloride Carbon Dioxide BUN Creatinine Glucose POC Glucose 178 H Hemoglobin A1c Calcium Phosphorus Magnesium AST ALT Alkaline Phosphatase Lactate Dehydrogenase 509 H C-Reactive Protein Total Protein Albumin Triglycerides Arterial Blood Glucose Arterial Blood Ionized Calcium Urine WBC (Auto) U Epithel Cells (Auto) Urine Creatinine Random Vancomycin Coronavirus (PCR) Crossmatch 03/31/21 03/31/21 03/31/21 12:30 17:40 21:00 WBC RBC Hgb Hct MCH MCHC RDW Plt Count Lymph % (Auto) [place] # (Auto) Eos # (Auto) Seg Neutrophils % Lymphocytes % (Manual) Eosinophils % (Manual) Basophils % (Manual) Nucleated RBC % Seg Neutrophils # Seg Neutrophils # Man Lymphocytes # (Manual) Monocytes # (Manual) Eosinophils # (Manual) Basophils # (Manual) Percent Retic PT INR Fibrinogen D-Dimer ABG pH 7.235 L 7.216 L POC ABG pCO2 POC ABG pO2 ABG pO2 76.8 L 113.9 H ABG HCO3 ABG O2 Saturation 93.2 L ABG Base Excess -5.3 L -7.3 L ABG Hemoglobin 6.3 L 8.0 L ABG Oxyhemoglobin ABG Sodium ABG Potassium ABG Chloride ABG Glucose Oxyhemoglobin 91.1 L Carboxyhemoglobin Sodium Potassium Chloride Carbon Dioxide BUN Creatinine Glucose POC Glucose 245 H Hemoglobin A1c Calcium Phosphorus Magnesium AST ALT Alkaline Phosphatase Lactate Dehydrogenase C-Reactive Protein Total Protein Albumin Triglycerides Arterial Blood Glucose Arterial Blood Ionized Calcium Urine WBC (Auto) U Epithel Cells (Auto) Urine Creatinine Random Vancomycin Coronavirus (PCR) Crossmatch 04/01/21 04/01/21 04/01/21 00:11 05:09 08:25 WBC RBC Hgb Hct MCH MCHC RDW Plt Count Lymph % (Auto) [place] # (Auto) Eos # (Auto) Seg Neutrophils % Lymphocytes % (Manual) Eosinophils % (Manual) Basophils % (Manual) Nucleated RBC % Seg Neutrophils # Seg Neutrophils # Man Lymphocytes # (Manual) Monocytes # (Manual) Eosinophils # (Manual) Basophils # (Manual) Percent Retic PT INR Fibrinogen D-Dimer ABG pH 7.225 L POC ABG pCO2 POC ABG pO2 ABG pO2 76.4 L ABG HCO3 ABG O2 Saturation 92.2 L ABG Base Excess -7.6 L ABG Hemoglobin 7.3 L ABG Oxyhemoglobin ABG Sodium ABG Potassium ABG Chloride ABG Glucose Oxyhemoglobin 90.2 L Carboxyhemoglobin Sodium Potassium Chloride Carbon Dioxide BUN Creatinine Glucose POC Glucose 209 H 173 H Hemoglobin A1c Calcium Phosphorus Magnesium AST ALT Alkaline Phosphatase Lactate Dehydrogenase C-Reactive Protein Total Protein Albumin Triglycerides Arterial Blood Glucose Arterial Blood Ionized Calcium Urine WBC (Auto) U Epithel Cells (Auto) Urine Creatinine Random Vancomycin Coronavirus (PCR) Crossmatch 04/01/21 04/01/21 04/01/21 12:01 12:05 17:55 WBC RBC Hgb Hct MCH MCHC RDW Plt Count Lymph % (Auto) [place] # (Auto) Eos # (Auto) Seg Neutrophils % Lymphocytes % (Manual) Eosinophils % (Manual) Basophils % (Manual) Nucleated RBC % Seg Neutrophils # Seg Neutrophils # Man Lymphocytes # (Manual) Monocytes # (Manual) Eosinophils # (Manual) Basophils # (Manual) Percent Retic PT INR Fibrinogen D-Dimer ABG pH POC ABG pCO2 POC ABG pO2 ABG pO2 ABG HCO3 ABG O2 Saturation ABG Base Excess ABG Hemoglobin ABG Oxyhemoglobin ABG Sodium ABG Potassium ABG Chloride ABG Glucose Oxyhemoglobin Carboxyhemoglobin Sodium Potassium 5.9 H Chloride Carbon Dioxide BUN Creatinine Glucose POC Glucose 202 H 217 H Hemoglobin A1c Calcium Phosphorus Magnesium AST ALT Alkaline Phosphatase Lactate Dehydrogenase C-Reactive Protein Total Protein Albumin Triglycerides Arterial Blood Glucose Arterial Blood Ionized Calcium Urine WBC (Auto) U Epithel Cells (Auto) Urine Creatinine Random Vancomycin Coronavirus (PCR) Crossmatch 04/01/21 04/01/21 04/01/21 Unknown Unknown 23:59 WBC 27.2 H RBC 3.08 L Hgb 8.4 L Hct 26.0 L MCH 27 L MCHC RDW 18.5 H Plt Count Lymph % (Auto) [place] # (Auto) Eos # (Auto) Seg Neutrophils % Lymphocytes % (Manual) Eosinophils % (Manual) Basophils % (Manual) Nucleated RBC % Seg Neutrophils # Seg Neutrophils # Man Lymphocytes # (Manual) Monocytes # (Manual) Eosinophils # (Manual) Basophils # (Manual) Percent Retic PT INR Fibrinogen D-Dimer ABG pH POC ABG pCO2 POC ABG pO2 ABG pO2 ABG HCO3 ABG O2 Saturation ABG Base Excess ABG Hemoglobin ABG Oxyhemoglobin ABG Sodium ABG Potassium ABG Chloride ABG Glucose Oxyhemoglobin Carboxyhemoglobin Sodium 132 L Potassium 6.6 H* D Chloride 91.3 L Carbon Dioxide 17 L BUN 104 H Creatinine 9.3 H Glucose 199 H POC Glucose 172 H Hemoglobin A1c Calcium 8.3 L Phosphorus Magnesium AST 236 H ALT 93 H Alkaline Phosphatase 191 H Lactate Dehydrogenase C-Reactive Protein Total Protein Albumin 2.4 L Triglycerides Arterial Blood Glucose Arterial Blood Ionized Calcium Urine WBC (Auto) U Epithel Cells (Auto) Urine Creatinine Random Vancomycin Coronavirus (PCR) Crossmatch 04/02/21 04/02/21 04/02/21 04:00 04:00 05:00 WBC 31.0 H RBC 2.93 L Hgb 8.0 L Hct 24.7 L MCH 27 L MCHC RDW 19.2 H Plt Count 131 L Lymph % (Auto) [place] # (Auto) Eos # (Auto) Seg Neutrophils % Lymphocytes % (Manual) Eosinophils % (Manual) Basophils % (Manual) Nucleated RBC % Seg Neutrophils # Seg Neutrophils # Man Lymphocytes # (Manual) Monocytes # (Manual) Eosinophils # (Manual) Basophils # (Manual) Percent Retic PT 16.0 H INR 1.16 H Fibrinogen D-Dimer ABG pH POC ABG pCO2 POC ABG pO2 ABG pO2 ABG HCO3 ABG O2 Saturation ABG Base Excess ABG Hemoglobin ABG Oxyhemoglobin ABG Sodium ABG Potassium ABG Chloride ABG Glucose Oxyhemoglobin Carboxyhemoglobin Sodium 135 L Potassium 5.3 H Chloride 96.1 L Carbon Dioxide 18 L BUN 80 H Creatinine 6.8 H Glucose 174 H POC Glucose Hemoglobin A1c Calcium 7.7 L Phosphorus Magnesium AST 106 H ALT 60 H Alkaline Phosphatase Lactate Dehydrogenase C-Reactive Protein Total Protein 5.9 L Albumin 3.5 L Triglycerides 579 H Arterial Blood Glucose Arterial Blood Ionized Calcium Urine WBC (Auto) U Epithel Cells (Auto) Urine Creatinine Random Vancomycin Coronavirus (PCR) Crossmatch 04/02/21 04/02/21 04/02/21 05:09 08:55 11:06 WBC RBC Hgb Hct MCH MCHC RDW Plt Count Lymph % (Auto) [place] # (Auto) Eos # (Auto) Seg Neutrophils % Lymphocytes % (Manual) Eosinophils % (Manual) Basophils % (Manual) Nucleated RBC % Seg Neutrophils # Seg Neutrophils # Man Lymphocytes # (Manual) Monocytes # (Manual) Eosinophils # (Manual) Basophils # (Manual) Percent Retic PT INR Fibrinogen D-Dimer ABG pH 7.188 L POC ABG pCO2 58.3 H POC ABG pO2 132.8 H ABG pO2 ABG HCO3 ABG O2 Saturation ABG Base Excess ABG Hemoglobin 8.4 L ABG Oxyhemoglobin ABG Sodium ABG Potassium 5.0 H ABG Chloride 97.0 L ABG Glucose 156 H Oxyhemoglobin Carboxyhemoglobin 0.4 L Sodium Potassium Chloride Carbon Dioxide BUN Creatinine Glucose POC Glucose 148 H 167 H Hemoglobin A1c Calcium Phosphorus Magnesium AST ALT Alkaline Phosphatase Lactate Dehydrogenase C-Reactive Protein Total Protein Albumin Triglycerides Arterial Blood Glucose 156 H Arterial Blood Ionized Calcium 4.2 L Urine WBC (Auto) U Epithel Cells (Auto) Urine Creatinine Random Vancomycin Coronavirus (PCR) Crossmatch 04/02/21 04/02/21 04/03/21 17:57 20:40 00:28 WBC RBC Hgb Hct MCH MCHC RDW Plt Count Lymph % (Auto) [place] # (Auto) Eos # (Auto) Seg Neutrophils % Lymphocytes % (Manual) Eosinophils % (Manual) Basophils % (Manual) Nucleated RBC % Seg Neutrophils # Seg Neutrophils # Man Lymphocytes # (Manual) Monocytes # (Manual) Eosinophils # (Manual) Basophils # (Manual) Percent Retic PT INR Fibrinogen D-Dimer ABG pH POC ABG pCO2 POC ABG pO2 ABG pO2 111.9 H ABG HCO3 18.9 L ABG O2 Saturation ABG Base Excess -9.9 L ABG Hemoglobin ABG Oxyhemoglobin ABG Sodium ABG Potassium ABG Chloride ABG Glucose Oxyhemoglobin Carboxyhemoglobin Sodium Potassium Chloride Carbon Dioxide BUN Creatinine Glucose POC Glucose 205 H 217 H Hemoglobin A1c Calcium Phosphorus Magnesium AST ALT Alkaline Phosphatase Lactate Dehydrogenase C-Reactive Protein Total Protein Albumin Triglycerides Arterial Blood Glucose Arterial Blood Ionized Calcium Urine WBC (Auto) U Epithel Cells (Auto) Urine Creatinine Random Vancomycin Coronavirus (PCR) Crossmatch 04/03/21 04/03/21 04/03/21 03:39 04:30 04:30 WBC 31.1 H RBC 2.78 L Hgb 8.0 L Hct 24.0 L MCH MCHC RDW 19.0 H Plt Count Lymph % (Auto) [place] # (Auto) Eos # (Auto) Seg Neutrophils % Lymphocytes % (Manual) Eosinophils % (Manual) 27.0 H Basophils % (Manual) 2.0 H Nucleated RBC % Seg Neutrophils # Seg Neutrophils # Man 13.7 H Lymphocytes # (Manual) 8.4 H Monocytes # (Manual) Eosinophils # (Manual) 8.4 H Basophils # (Manual) 0.6 H Percent Retic PT INR Fibrinogen D-Dimer ABG pH POC ABG pCO2 POC ABG pO2 ABG pO2 ABG HCO3 ABG O2 Saturation ABG Base Excess ABG Hemoglobin ABG Oxyhemoglobin ABG Sodium ABG Potassium ABG Chloride ABG Glucose Oxyhemoglobin Carboxyhemoglobin Sodium 132 L Potassium 5.8 H Chloride 94.5 L Carbon Dioxide 16 L BUN 97 H Creatinine 7.7 H Glucose 230 H POC Glucose 201 H Hemoglobin A1c Calcium 7.6 L Phosphorus Magnesium AST 47 H ALT Alkaline Phosphatase 146 H Lactate Dehydrogenase C-Reactive Protein Total Protein 5.2 L Albumin 3.4 L Triglycerides Arterial Blood Glucose Arterial Blood Ionized Calcium Urine WBC (Auto) U Epithel Cells (Auto) Urine Creatinine Random Vancomycin Coronavirus (PCR) Crossmatch 04/03/21 04/03/21 04/03/21 04:30 08:31 11:29 WBC RBC Hgb Hct MCH MCHC RDW Plt Count Lymph % (Auto) [place] # (Auto) Eos # (Auto) Seg Neutrophils % Lymphocytes % (Manual) Eosinophils % (Manual) Basophils % (Manual) Nucleated RBC % Seg Neutrophils # Seg Neutrophils # Man Lymphocytes # (Manual) Monocytes # (Manual) Eosinophils # (Manual) Basophils # (Manual) Percent Retic PT INR Fibrinogen D-Dimer ABG pH 7.195 L* POC ABG pCO2 POC ABG pO2 ABG pO2 102.6 H ABG HCO3 ABG O2 Saturation ABG Base Excess -7.2 L ABG Hemoglobin 8.0 L ABG Oxyhemoglobin ABG Sodium ABG Potassium ABG Chloride ABG Glucose Oxyhemoglobin 94.7 L Carboxyhemoglobin Sodium Potassium Chloride Carbon Dioxide BUN Creatinine Glucose POC Glucose 230 H Hemoglobin A1c Calcium Phosphorus 10.30 H Magnesium AST ALT Alkaline Phosphatase Lactate Dehydrogenase C-Reactive Protein Total Protein Albumin Triglycerides Arterial Blood Glucose Arterial Blood Ionized Calcium Urine WBC (Auto) U Epithel Cells (Auto) Urine Creatinine Random Vancomycin Coronavirus (PCR) Crossmatch 04/03/21 04/03/21 04/04/21 16:53 20:45 05:00 WBC 28.8 H RBC 2.64 L Hgb 8.7 L Hct 22.2 L MCH 33 H MCHC 39 H* RDW 18.6 H Plt Count Lymph % (Auto) [place] # (Auto) Eos # (Auto) Seg Neutrophils % Lymphocytes % (Manual) Eosinophils % (Manual) Basophils % (Manual) Nucleated RBC % Seg Neutrophils # Seg Neutrophils # Man Lymphocytes # (Manual) Monocytes # (Manual) Eosinophils # (Manual) Basophils # (Manual) Percent Retic PT INR Fibrinogen D-Dimer ABG pH POC ABG pCO2 POC ABG pO2 ABG pO2 ABG HCO3 ABG O2 Saturation ABG Base Excess ABG Hemoglobin ABG Oxyhemoglobin ABG Sodium ABG Potassium ABG Chloride ABG Glucose Oxyhemoglobin 94.8 L Carboxyhemoglobin Sodium Potassium Chloride Carbon Dioxide BUN Creatinine Glucose POC Glucose 227 H Hemoglobin A1c Calcium Phosphorus Magnesium AST ALT Alkaline Phosphatase Lactate Dehydrogenase C-Reactive Protein Total Protein Albumin Triglycerides Arterial Blood Glucose Arterial Blood Ionized Calcium Urine WBC (Auto) U Epithel Cells (Auto) Urine Creatinine Random Vancomycin Coronavirus (PCR) Crossmatch 04/04/21 04/04/21 04/04/21 05:29 07:55 09:20 WBC RBC Hgb Hct MCH MCHC RDW Plt Count Lymph % (Auto) [place] # (Auto) Eos # (Auto) Seg Neutrophils % Lymphocytes % (Manual) Eosinophils % (Manual) Basophils % (Manual) Nucleated RBC % Seg Neutrophils # Seg Neutrophils # Man Lymphocytes # (Manual) Monocytes # (Manual) Eosinophils # (Manual) Basophils # (Manual) Percent Retic PT INR Fibrinogen D-Dimer ABG pH POC ABG pCO2 POC ABG pO2 ABG pO2 ABG HCO3 ABG O2 Saturation ABG Base Excess ABG Hemoglobin ABG Oxyhemoglobin ABG Sodium ABG Potassium ABG Chloride ABG Glucose Oxyhemoglobin Carboxyhemoglobin Sodium 133 L Potassium Chloride 91.0 L Carbon Dioxide 20 L BUN 75 H Creatinine 4.7 H Glucose 184 H POC Glucose 133 H Hemoglobin A1c Calcium 7.3 L Phosphorus Magnesium AST < 5 L ALT < 5 L Alkaline Phosphatase 200 H Lactate Dehydrogenase C-Reactive Protein Total Protein 5.6 L Albumin 2.9 L Triglycerides Arterial Blood Glucose Arterial Blood Ionized Calcium Urine WBC (Auto) U Epithel Cells (Auto) Urine Creatinine Random Vancomycin Coronavirus (PCR) Crossmatch See Detail 04/04/21 04/04/21 04/04/21 12:01 14:06 17:05 WBC RBC Hgb Hct MCH MCHC RDW Plt Count Lymph % (Auto) [place] # (Auto) Eos # (Auto) Seg Neutrophils % Lymphocytes % (Manual) Eosinophils % (Manual) Basophils % (Manual) Nucleated RBC % Seg Neutrophils # Seg Neutrophils # Man Lymphocytes # (Manual) Monocytes # (Manual) Eosinophils # (Manual) Basophils # (Manual) Percent Retic PT INR Fibrinogen D-Dimer ABG pH 7.162 L* POC ABG pCO2 POC ABG pO2 ABG pO2 91.3 H ABG HCO3 ABG O2 Saturation 94.8 L ABG Base Excess -4.0 L ABG Hemoglobin 7.6 L ABG Oxyhemoglobin ABG Sodium ABG Potassium ABG Chloride ABG Glucose Oxyhemoglobin 92.4 L Carboxyhemoglobin Sodium Potassium Chloride Carbon Dioxide BUN Creatinine Glucose POC Glucose 199 H 166 H Hemoglobin A1c Calcium Phosphorus Magnesium AST ALT Alkaline Phosphatase Lactate Dehydrogenase C-Reactive Protein Total Protein Albumin Triglycerides Arterial Blood Glucose Arterial Blood Ionized Calcium Urine WBC (Auto) U Epithel Cells (Auto) Urine Creatinine Random Vancomycin Coronavirus (PCR) Crossmatch 04/04/21 04/04/21 04/05/21 21:14 23:30 05:20 WBC RBC Hgb Hct MCH MCHC RDW Plt Count Lymph % (Auto) [place] # (Auto) Eos # (Auto) Seg Neutrophils % Lymphocytes % (Manual) Eosinophils % (Manual) Basophils % (Manual) Nucleated RBC % Seg Neutrophils # Seg Neutrophils # Man Lymphocytes # (Manual) Monocytes # (Manual) Eosinophils # (Manual) Basophils # (Manual) Percent Retic PT INR Fibrinogen D-Dimer ABG pH 7.257 L POC ABG pCO2 POC ABG pO2 ABG pO2 73.8 L ABG HCO3 ABG O2 Saturation 91.6 L ABG Base Excess -2.7 L ABG Hemoglobin 8.6 L ABG Oxyhemoglobin ABG Sodium ABG Potassium ABG Chloride ABG Glucose Oxyhemoglobin 89.1 L Carboxyhemoglobin Sodium 131 L Potassium Chloride 91.2 L Carbon Dioxide 17 L BUN 85 H Creatinine 5.1 H Glucose 183 H POC Glucose 158 H Hemoglobin A1c Calcium 7.4 L Phosphorus Magnesium AST ALT Alkaline Phosphatase 190 H Lactate Dehydrogenase 394 H C-Reactive Protein Total Protein 5.8 L Albumin 2.7 L Triglycerides Arterial Blood Glucose Arterial Blood Ionized Calcium Urine WBC (Auto) U Epithel Cells (Auto) Urine Creatinine Random Vancomycin Coronavirus (PCR) Crossmatch 04/05/21 04/05/21 04/05/21 05:20 05:20 05:24 WBC 30.8 H RBC 2.83 L Hgb 8.4 L Hct 24.4 L MCH MCHC 35 H RDW 18.9 H Plt Count Lymph % (Auto) [place] # (Auto) Eos # (Auto) Seg Neutrophils % Lymphocytes % (Manual) Eosinophils % (Manual) Basophils % (Manual) Nucleated RBC % Seg Neutrophils # Seg Neutrophils # Man Lymphocytes # (Manual) Monocytes # (Manual) Eosinophils # (Manual) Basophils # (Manual) Percent Retic PT INR Fibrinogen D-Dimer ABG pH POC ABG pCO2 POC ABG pO2 ABG pO2 ABG HCO3 ABG O2 Saturation ABG Base Excess ABG Hemoglobin ABG Oxyhemoglobin ABG Sodium ABG Potassium ABG Chloride ABG Glucose Oxyhemoglobin Carboxyhemoglobin Sodium Potassium Chloride Carbon Dioxide BUN Creatinine Glucose POC Glucose 162 H Hemoglobin A1c Calcium Phosphorus 9.40 H Magnesium AST ALT Alkaline Phosphatase Lactate Dehydrogenase C-Reactive Protein Total Protein Albumin Triglycerides Arterial Blood Glucose Arterial Blood Ionized Calcium Urine WBC (Auto) U Epithel Cells (Auto) Urine Creatinine Random Vancomycin Coronavirus (PCR) Crossmatch 04/05/21 04/05/21 04/05/21 11:31 12:23 21:40 WBC RBC Hgb Hct MCH MCHC RDW Plt Count Lymph % (Auto) [place] # (Auto) Eos # (Auto) Seg Neutrophils % Lymphocytes % (Manual) Eosinophils % (Manual) Basophils % (Manual) Nucleated RBC % Seg Neutrophils # Seg Neutrophils # Man Lymphocytes # (Manual) Monocytes # (Manual) Eosinophils # (Manual) Basophils # (Manual) Percent Retic PT INR Fibrinogen D-Dimer ABG pH 7.325 L POC ABG pCO2 POC ABG pO2 ABG pO2 65.6 L ABG HCO3 ABG O2 Saturation 91.2 L ABG Base Excess ABG Hemoglobin 6.7 L ABG Oxyhemoglobin ABG Sodium ABG Potassium ABG Chloride ABG Glucose Oxyhemoglobin 89.0 L Carboxyhemoglobin Sodium Potassium Chloride Carbon Dioxide BUN Creatinine Glucose POC Glucose 196 H 190 H Hemoglobin A1c Calcium Phosphorus Magnesium AST ALT Alkaline Phosphatase Lactate Dehydrogenase C-Reactive Protein Total Protein Albumin Triglycerides Arterial Blood Glucose Arterial Blood Ionized Calcium Urine WBC (Auto) U Epithel Cells (Auto) Urine Creatinine Random Vancomycin Coronavirus (PCR) Crossmatch 04/05/21 04/06/21 04/06/21 23:53 05:35 06:00 WBC RBC Hgb Hct MCH MCHC RDW Plt Count Lymph % (Auto) [place] # (Auto) Eos # (Auto) Seg Neutrophils % Lymphocytes % (Manual) Eosinophils % (Manual) Basophils % (Manual) Nucleated RBC % Seg Neutrophils # Seg Neutrophils # Man Lymphocytes # (Manual) Monocytes # (Manual) Eosinophils # (Manual) Basophils # (Manual) Percent Retic PT INR Fibrinogen D-Dimer ABG pH POC ABG pCO2 POC ABG pO2 ABG pO2 ABG HCO3 ABG O2 Saturation ABG Base Excess ABG Hemoglobin ABG Oxyhemoglobin ABG Sodium ABG Potassium ABG Chloride ABG Glucose Oxyhemoglobin Carboxyhemoglobin Sodium 132 L Potassium Chloride 90.7 L Carbon Dioxide 21 L BUN 74 H Creatinine 4.3 H Glucose 156 H POC Glucose 192 H 139 H Hemoglobin A1c Calcium 7.9 L Phosphorus 6.90 H D Magnesium AST < 5 L ALT < 5 L Alkaline Phosphatase 185 H Lactate Dehydrogenase C-Reactive Protein Total Protein 5.7 L Albumin 2.5 L Triglycerides Arterial Blood Glucose Arterial Blood Ionized Calcium Urine WBC (Auto) U Epithel Cells (Auto) Urine Creatinine Random Vancomycin Coronavirus (PCR) Crossmatch 04/06/21 04/06/21 04/06/21 06:00 11:27 18:01 WBC 26.7 H RBC 2.39 L Hgb 6.9 L Hct 20.1 L MCH MCHC RDW 18.7 H Plt Count Lymph % (Auto) [place] # (Auto) Eos # (Auto) Seg Neutrophils % Lymphocytes % (Manual) Eosinophils % (Manual) Basophils % (Manual) Nucleated RBC % Seg Neutrophils # Seg Neutrophils # Man Lymphocytes # (Manual) Monocytes # (Manual) Eosinophils # (Manual) Basophils # (Manual) Percent Retic PT INR Fibrinogen D-Dimer ABG pH POC ABG pCO2 POC ABG pO2 ABG pO2 ABG HCO3 ABG O2 Saturation ABG Base Excess ABG Hemoglobin ABG Oxyhemoglobin ABG Sodium ABG Potassium ABG Chloride ABG Glucose Oxyhemoglobin Carboxyhemoglobin Sodium Potassium Chloride Carbon Dioxide BUN Creatinine Glucose POC Glucose 166 H 159 H Hemoglobin A1c Calcium Phosphorus Magnesium AST ALT Alkaline Phosphatase Lactate Dehydrogenase C-Reactive Protein Total Protein Albumin Triglycerides Arterial Blood Glucose Arterial Blood Ionized Calcium Urine WBC (Auto) U Epithel Cells (Auto) Urine Creatinine Random Vancomycin Coronavirus (PCR) Crossmatch 04/06/21 04/06/21 04/06/21 20:50 23:43 Unknown WBC RBC Hgb Hct MCH MCHC RDW Plt Count Lymph % (Auto) [place] # (Auto) Eos # (Auto) Seg Neutrophils % Lymphocytes % (Manual) Eosinophils % (Manual) Basophils % (Manual) Nucleated RBC % Seg Neutrophils # Seg Neutrophils # Man Lymphocytes # (Manual) Monocytes # (Manual) Eosinophils # (Manual) Basophils # (Manual) Percent Retic PT INR Fibrinogen D-Dimer ABG pH 7.303 L POC ABG pCO2 POC ABG pO2 67.9 L ABG pO2 ABG HCO3 ABG O2 Saturation ABG Base Excess ABG Hemoglobin 7.6 L ABG Oxyhemoglobin 90.2 L ABG Sodium 128.6 L ABG Potassium ABG Chloride 97.0 L ABG Glucose 154 H Oxyhemoglobin Carboxyhemoglobin Sodium Potassium Chloride Carbon Dioxide BUN Creatinine Glucose POC Glucose 137 H Hemoglobin A1c Calcium Phosphorus Magnesium AST ALT Alkaline Phosphatase Lactate Dehydrogenase C-Reactive Protein Total Protein Albumin Triglycerides Arterial Blood Glucose 154 H Arterial Blood Ionized Calcium Urine WBC (Auto) 148.0 H U Epithel Cells (Auto) 102.0 H Urine Creatinine Random Vancomycin Coronavirus (PCR) Crossmatch 04/07/21 04/07/21 04/07/21 03:50 03:50 03:50 WBC 26.7 H RBC 2.66 L Hgb 7.6 L Hct 23.2 L MCH MCHC RDW 18.5 H Plt Count Lymph % (Auto) [place] # (Auto) Eos # (Auto) Seg Neutrophils % Lymphocytes % (Manual) 10.0 L Eosinophils % (Manual) 19.0 H Basophils % (Manual) Nucleated RBC % 2.0 H Seg Neutrophils # Seg Neutrophils # Man 17.9 H Lymphocytes # (Manual) Monocytes # (Manual) 1.1 H Eosinophils # (Manual) 5.1 H Basophils # (Manual) Percent Retic PT INR Fibrinogen D-Dimer 2178 H ABG pH POC ABG pCO2 POC ABG pO2 ABG pO2 ABG HCO3 ABG O2 Saturation ABG Base Excess ABG Hemoglobin ABG Oxyhemoglobin ABG Sodium ABG Potassium ABG Chloride ABG Glucose Oxyhemoglobin Carboxyhemoglobin Sodium 130 L Potassium Chloride 91.1 L Carbon Dioxide 19 L BUN 92 H Creatinine 4.2 H Glucose 213 H POC Glucose Hemoglobin A1c Calcium 7.8 L Phosphorus Magnesium AST ALT Alkaline Phosphatase Lactate Dehydrogenase C-Reactive Protein Total Protein Albumin Triglycerides Arterial Blood Glucose Arterial Blood Ionized Calcium Urine WBC (Auto) U Epithel Cells (Auto) Urine Creatinine Random Vancomycin Coronavirus (PCR) Crossmatch 04/07/21 04/07/21 04/07/21 04:00 05:42 11:10 WBC RBC Hgb Hct MCH MCHC RDW Plt Count Lymph % (Auto) [place] # (Auto) Eos # (Auto) Seg Neutrophils % Lymphocytes % (Manual) Eosinophils % (Manual) Basophils % (Manual) Nucleated RBC % Seg Neutrophils # Seg Neutrophils # Man Lymphocytes # (Manual) Monocytes # (Manual) Eosinophils # (Manual) Basophils # (Manual) Percent Retic PT INR Fibrinogen D-Dimer ABG pH POC ABG pCO2 POC ABG pO2 ABG pO2 ABG HCO3 ABG O2 Saturation ABG Base Excess ABG Hemoglobin ABG Oxyhemoglobin ABG Sodium ABG Potassium ABG Chloride ABG Glucose Oxyhemoglobin Carboxyhemoglobin Sodium 129 L Potassium 5.1 H Chloride 89.6 L Carbon Dioxide 18 L BUN 94 H Creatinine 4.2 H Glucose 213 H POC Glucose 177 H 136 H Hemoglobin A1c Calcium 7.9 L Phosphorus Magnesium AST ALT Alkaline Phosphatase 167 H Lactate Dehydrogenase C-Reactive Protein Total Protein Albumin 2.8 L Triglycerides Arterial Blood Glucose Arterial Blood Ionized Calcium Urine WBC (Auto) U Epithel Cells (Auto) Urine Creatinine Random Vancomycin Coronavirus (PCR) Crossmatch 04/07/21 04/07/21 04/08/21 16:19 21:30 02:32 WBC RBC Hgb Hct MCH MCHC RDW Plt Count Lymph % (Auto) [place] # (Auto) Eos # (Auto) Seg Neutrophils % Lymphocytes % (Manual) Eosinophils % (Manual) Basophils % (Manual) Nucleated RBC % Seg Neutrophils # Seg Neutrophils # Man Lymphocytes # (Manual) Monocytes # (Manual) Eosinophils # (Manual) Basophils # (Manual) Percent Retic PT INR Fibrinogen D-Dimer ABG pH 7.209 L POC ABG pCO2 64.8 H POC ABG pO2 ABG pO2 ABG HCO3 ABG O2 Saturation ABG Base Excess ABG Hemoglobin 7.9 L ABG Oxyhemoglobin 93.8 L ABG Sodium 128.8 L ABG Potassium 4.6 H ABG Chloride 97.0 L ABG Glucose 170 H Oxyhemoglobin Carboxyhemoglobin 1.6 H Sodium Potassium Chloride Carbon Dioxide BUN Creatinine Glucose POC Glucose 155 H 141 H Hemoglobin A1c Calcium Phosphorus Magnesium AST ALT Alkaline Phosphatase Lactate Dehydrogenase C-Reactive Protein Total Protein Albumin Triglycerides Arterial Blood Glucose 170 H Arterial Blood Ionized Calcium 4.2 L Urine WBC (Auto) U Epithel Cells (Auto) Urine Creatinine Random Vancomycin Coronavirus (PCR) Crossmatch 04/08/21 04/08/21 04/08/21 04:00 04:40 04:40 WBC 23.7 H RBC 2.51 L Hgb 6.9 L Hct 22.1 L MCH 27 L MCHC RDW 18.4 H Plt Count Lymph % (Auto) [place] # (Auto) Eos # (Auto) Seg Neutrophils % Lymphocytes % (Manual) Eosinophils % (Manual) Basophils % (Manual) Nucleated RBC % Seg Neutrophils # Seg Neutrophils # Man Lymphocytes # (Manual) Monocytes # (Manual) Eosinophils # (Manual) Basophils # (Manual) Percent Retic PT INR Fibrinogen D-Dimer 2696.79 H ABG pH POC ABG pCO2 POC ABG pO2 ABG pO2 ABG HCO3 ABG O2 Saturation ABG Base Excess ABG Hemoglobin ABG Oxyhemoglobin ABG Sodium ABG Potassium ABG Chloride ABG Glucose Oxyhemoglobin Carboxyhemoglobin Sodium 133 L Potassium 5.5 H Chloride 93.5 L Carbon Dioxide BUN 78 H Creatinine 3.5 H Glucose 171 H POC Glucose Hemoglobin A1c Calcium 8.1 L Phosphorus 9.30 H Magnesium AST ALT Alkaline Phosphatase Lactate Dehydrogenase C-Reactive Protein 26.10 H Total Protein Albumin Triglycerides 487 H Arterial Blood Glucose Arterial Blood Ionized Calcium Urine WBC (Auto) U Epithel Cells (Auto) Urine Creatinine Random Vancomycin Coronavirus (PCR) Crossmatch 04/08/21 04/08/21 04/08/21 09:55 11:37 13:55 WBC RBC Hgb Hct MCH MCHC RDW Plt Count Lymph % (Auto) [place] # (Auto) Eos # (Auto) Seg Neutrophils % Lymphocytes % (Manual) Eosinophils % (Manual) Basophils % (Manual) Nucleated RBC % Seg Neutrophils # Seg Neutrophils # Man Lymphocytes # (Manual) Monocytes # (Manual) Eosinophils # (Manual) Basophils # (Manual) Percent Retic PT INR Fibrinogen D-Dimer ABG pH 7.114 L* POC ABG pCO2 POC ABG pO2 ABG pO2 75.9 L ABG HCO3 26.2 H ABG O2 Saturation 90.6 L ABG Base Excess -3.6 L ABG Hemoglobin 8.2 L ABG Oxyhemoglobin ABG Sodium ABG Potassium ABG Chloride ABG Glucose Oxyhemoglobin 88.0 L Carboxyhemoglobin Sodium Potassium Chloride Carbon Dioxide BUN Creatinine Glucose POC Glucose 156 H Hemoglobin A1c Calcium Phosphorus Magnesium AST ALT Alkaline Phosphatase Lactate Dehydrogenase C-Reactive Protein Total Protein Albumin Triglycerides Arterial Blood Glucose Arterial Blood Ionized Calcium Urine WBC (Auto) U Epithel Cells (Auto) Urine Creatinine Random Vancomycin Coronavirus (PCR) Crossmatch See Detail 04/08/21 04/08/21 04/08/21 17:04 20:53 23:56 WBC RBC Hgb Hct MCH MCHC RDW Plt Count Lymph % (Auto) [place] # (Auto) Eos # (Auto) Seg Neutrophils % Lymphocytes % (Manual) Eosinophils % (Manual) Basophils % (Manual) Nucleated RBC % Seg Neutrophils # Seg Neutrophils # Man Lymphocytes # (Manual) Monocytes # (Manual) Eosinophils # (Manual) Basophils # (Manual) Percent Retic PT INR Fibrinogen D-Dimer ABG pH 7.207 L POC ABG pCO2 49.8 H POC ABG pO2 ABG pO2 ABG HCO3 ABG O2 Saturation ABG Base Excess ABG Hemoglobin 7.6 L ABG Oxyhemoglobin ABG Sodium 127.3 L ABG Potassium 5.7 H ABG Chloride 96.0 L ABG Glucose 185 H Oxyhemoglobin Carboxyhemoglobin Sodium Potassium Chloride Carbon Dioxide BUN Creatinine Glucose POC Glucose 178 H 189 H Hemoglobin A1c Calcium Phosphorus Magnesium AST ALT Alkaline Phosphatase Lactate Dehydrogenase C-Reactive Protein Total Protein Albumin Triglycerides Arterial Blood Glucose 185 H Arterial Blood Ionized Calcium 4.3 L Urine WBC (Auto) U Epithel Cells (Auto) Urine Creatinine Random Vancomycin Coronavirus (PCR) Crossmatch 04/09/21 04/09/21 04/09/21 04:00 04:00 05:24 WBC 21.9 H RBC 2.70 L Hgb 7.8 L Hct 24.1 L MCH MCHC RDW 18.3 H Plt Count Lymph % (Auto) [place] # (Auto) Eos # (Auto) Seg Neutrophils % Lymphocytes % (Manual) Eosinophils % (Manual) Basophils % (Manual) Nucleated RBC % Seg Neutrophils # Seg Neutrophils # Man Lymphocytes # (Manual) Monocytes # (Manual) Eosinophils # (Manual) Basophils # (Manual) Percent Retic PT INR Fibrinogen D-Dimer ABG pH POC ABG pCO2 POC ABG pO2 ABG pO2 ABG HCO3 ABG O2 Saturation ABG Base Excess ABG Hemoglobin ABG Oxyhemoglobin ABG Sodium ABG Potassium ABG Chloride ABG Glucose Oxyhemoglobin Carboxyhemoglobin Sodium 131 L Potassium 6.3 H* Chloride 93.0 L Carbon Dioxide 19 L BUN 98 H Creatinine 4.6 H Glucose 208 H POC Glucose 191 H Hemoglobin A1c Calcium 8.1 L Phosphorus Magnesium AST ALT Alkaline Phosphatase Lactate Dehydrogenase C-Reactive Protein Total Protein Albumin Triglycerides Arterial Blood Glucose Arterial Blood Ionized Calcium Urine WBC (Auto) U Epithel Cells (Auto) Urine Creatinine Random Vancomycin Coronavirus (PCR) Crossmatch 04/09/21 04/09/21 04/09/21 12:42 16:59 21:00 WBC RBC Hgb Hct MCH MCHC RDW Plt Count Lymph % (Auto) [place] # (Auto) Eos # (Auto) Seg Neutrophils % Lymphocytes % (Manual) Eosinophils % (Manual) Basophils % (Manual) Nucleated RBC % Seg Neutrophils # Seg Neutrophils # Man Lymphocytes # (Manual) Monocytes # (Manual) Eosinophils # (Manual) Basophils # (Manual) Percent Retic PT INR Fibrinogen D-Dimer ABG pH 7.192 L POC ABG pCO2 63.4 H POC ABG pO2 ABG pO2 ABG HCO3 ABG O2 Saturation ABG Base Excess ABG Hemoglobin 8.7 L ABG Oxyhemoglobin 92.9 L ABG Sodium 135.1 L ABG Potassium ABG Chloride ABG Glucose 208 H Oxyhemoglobin Carboxyhemoglobin Sodium Potassium Chloride Carbon Dioxide BUN Creatinine Glucose POC Glucose 198 H 218 H Hemoglobin A1c Calcium Phosphorus Magnesium AST ALT Alkaline Phosphatase Lactate Dehydrogenase C-Reactive Protein Total Protein Albumin Triglycerides Arterial Blood Glucose 208 H Arterial Blood Ionized Calcium Urine WBC (Auto) U Epithel Cells (Auto) Urine Creatinine Random Vancomycin Coronavirus (PCR) Crossmatch 04/09/21 04/10/21 04/10/21 23:31 04:45 04:45 WBC 18.0 H RBC 2.65 L Hgb 7.4 L Hct 23.3 L MCH MCHC RDW 18.5 H Plt Count Lymph % (Auto) [place] # (Auto) Eos # (Auto) Seg Neutrophils % Lymphocytes % (Manual) Eosinophils % (Manual) Basophils % (Manual) Nucleated RBC % Seg Neutrophils # Seg Neutrophils # Man Lymphocytes # (Manual) Monocytes # (Manual) Eosinophils # (Manual) Basophils # (Manual) Percent Retic PT INR Fibrinogen D-Dimer ABG pH POC ABG pCO2 POC ABG pO2 ABG pO2 ABG HCO3 ABG O2 Saturation ABG Base Excess ABG Hemoglobin ABG Oxyhemoglobin ABG Sodium ABG Potassium ABG Chloride ABG Glucose Oxyhemoglobin Carboxyhemoglobin Sodium Potassium 5.5 H Chloride Carbon Dioxide 21 L BUN 83 H Creatinine 3.4 H Glucose 211 H POC Glucose 162 H Hemoglobin A1c Calcium Phosphorus Magnesium AST ALT Alkaline Phosphatase Lactate Dehydrogenase C-Reactive Protein Total Protein Albumin Triglycerides Arterial Blood Glucose Arterial Blood Ionized Calcium Urine WBC (Auto) U Epithel Cells (Auto) Urine Creatinine Random Vancomycin Coronavirus (PCR) Crossmatch 04/10/21 04/10/21 04/10/21 05:01 11:58 17:42 WBC RBC Hgb Hct MCH MCHC RDW Plt Count Lymph % (Auto) [place] # (Auto) Eos # (Auto) Seg Neutrophils % Lymphocytes % (Manual) Eosinophils % (Manual) Basophils % (Manual) Nucleated RBC % Seg Neutrophils # Seg Neutrophils # Man Lymphocytes # (Manual) Monocytes # (Manual) Eosinophils # (Manual) Basophils # (Manual) Percent Retic PT INR Fibrinogen D-Dimer ABG pH POC ABG pCO2 POC ABG pO2 ABG pO2 ABG HCO3 ABG O2 Saturation ABG Base Excess ABG Hemoglobin ABG Oxyhemoglobin ABG Sodium ABG Potassium ABG Chloride ABG Glucose Oxyhemoglobin Carboxyhemoglobin Sodium Potassium Chloride Carbon Dioxide BUN Creatinine Glucose POC Glucose 183 H 136 H 166 H Hemoglobin A1c Calcium Phosphorus Magnesium AST ALT Alkaline Phosphatase Lactate Dehydrogenase C-Reactive Protein Total Protein Albumin Triglycerides Arterial Blood Glucose Arterial Blood Ionized Calcium Urine WBC (Auto) U Epithel Cells (Auto) Urine Creatinine Random Vancomycin Coronavirus (PCR) Crossmatch 04/11/21 04/11/21 04/11/21 00:02 04:15 04:15 WBC 16.3 H RBC 2.53 L Hgb 7.0 L Hct 22.6 L MCH MCHC RDW 18.4 H Plt Count Lymph % (Auto) [place] # (Auto) Eos # (Auto) Seg Neutrophils % Lymphocytes % (Manual) Eosinophils % (Manual) Basophils % (Manual) Nucleated RBC % Seg Neutrophils # Seg Neutrophils # Man Lymphocytes # (Manual) Monocytes # (Manual) Eosinophils # (Manual) Basophils # (Manual) Percent Retic PT INR Fibrinogen D-Dimer ABG pH POC ABG pCO2 POC ABG pO2 ABG pO2 ABG HCO3 ABG O2 Saturation ABG Base Excess ABG Hemoglobin ABG Oxyhemoglobin ABG Sodium ABG Potassium ABG Chloride ABG Glucose Oxyhemoglobin Carboxyhemoglobin Sodium Potassium Chloride Carbon Dioxide BUN 71 H Creatinine 3.1 H Glucose 183 H POC Glucose 155 H Hemoglobin A1c Calcium Phosphorus Magnesium AST ALT Alkaline Phosphatase Lactate Dehydrogenase C-Reactive Protein Total Protein Albumin Triglycerides 406 H Arterial Blood Glucose Arterial Blood Ionized Calcium Urine WBC (Auto) U Epithel Cells (Auto) Urine Creatinine Random Vancomycin Coronavirus (PCR) Crossmatch 04/11/21 04/11/21 04/11/21 05:46 11:34 11:50 WBC RBC Hgb 6.7 L Hct 20.8 L MCH MCHC RDW Plt Count Lymph % (Auto) [place] # (Auto) Eos # (Auto) Seg Neutrophils % Lymphocytes % (Manual) Eosinophils % (Manual) Basophils % (Manual) Nucleated RBC % Seg Neutrophils # Seg Neutrophils # Man Lymphocytes # (Manual) Monocytes # (Manual) Eosinophils # (Manual) Basophils # (Manual) Percent Retic PT INR Fibrinogen D-Dimer ABG pH POC ABG pCO2 POC ABG pO2 ABG pO2 ABG HCO3 ABG O2 Saturation ABG Base Excess ABG Hemoglobin ABG Oxyhemoglobin ABG Sodium ABG Potassium ABG Chloride ABG Glucose Oxyhemoglobin Carboxyhemoglobin Sodium Potassium Chloride Carbon Dioxide BUN Creatinine Glucose POC Glucose 157 H 132 H Hemoglobin A1c Calcium Phosphorus Magnesium AST ALT Alkaline Phosphatase Lactate Dehydrogenase C-Reactive Protein Total Protein Albumin Triglycerides Arterial Blood Glucose Arterial Blood Ionized Calcium Urine WBC (Auto) U Epithel Cells (Auto) Urine Creatinine Random Vancomycin Coronavirus (PCR) Crossmatch 04/11/21 04/11/21 04/11/21 13:39 17:49 17:50 WBC RBC Hgb 6.5 L Hct 21.4 L MCH MCHC RDW Plt Count Lymph % (Auto) [place] # (Auto) Eos # (Auto) Seg Neutrophils % Lymphocytes % (Manual) Eosinophils % (Manual) Basophils % (Manual) Nucleated RBC % Seg Neutrophils # Seg Neutrophils # Man Lymphocytes # (Manual) Monocytes # (Manual) Eosinophils # (Manual) Basophils # (Manual) Percent Retic PT INR Fibrinogen D-Dimer ABG pH POC ABG pCO2 POC ABG pO2 ABG pO2 ABG HCO3 ABG O2 Saturation ABG Base Excess ABG Hemoglobin ABG Oxyhemoglobin ABG Sodium ABG Potassium ABG Chloride ABG Glucose Oxyhemoglobin Carboxyhemoglobin Sodium Potassium Chloride Carbon Dioxide BUN Creatinine Glucose POC Glucose 136 H Hemoglobin A1c Calcium Phosphorus Magnesium AST ALT Alkaline Phosphatase Lactate Dehydrogenase C-Reactive Protein Total Protein Albumin Triglycerides Arterial Blood Glucose Arterial Blood Ionized Calcium Urine WBC (Auto) U Epithel Cells (Auto) Urine Creatinine Random Vancomycin Coronavirus (PCR) Crossmatch See Detail 04/12/21 04/12/21 04/12/21 00:25 00:29 02:52 WBC RBC Hgb 7.4 L Hct 23.5 L MCH MCHC RDW Plt Count Lymph % (Auto) [place] # (Auto) Eos # (Auto) Seg Neutrophils % Lymphocytes % (Manual) Eosinophils % (Manual) Basophils % (Manual) Nucleated RBC % Seg Neutrophils # Seg Neutrophils # Man Lymphocytes # (Manual) Monocytes # (Manual) Eosinophils # (Manual) Basophils # (Manual) Percent Retic PT INR Fibrinogen D-Dimer ABG pH 7.253 L POC ABG pCO2 POC ABG pO2 ABG pO2 79.6 L ABG HCO3 ABG O2 Saturation 94.1 L ABG Base Excess -3.6 L ABG Hemoglobin 8.1 L ABG Oxyhemoglobin ABG Sodium ABG Potassium ABG Chloride ABG Glucose Oxyhemoglobin 93.6 L Carboxyhemoglobin Sodium Potassium Chloride Carbon Dioxide BUN Creatinine Glucose POC Glucose 125 H Hemoglobin A1c Calcium Phosphorus Magnesium AST ALT Alkaline Phosphatase Lactate Dehydrogenase C-Reactive Protein Total Protein Albumin Triglycerides Arterial Blood Glucose Arterial Blood Ionized Calcium Urine WBC (Auto) U Epithel Cells (Auto) Urine Creatinine Random Vancomycin Coronavirus (PCR) Crossmatch 04/12/21 04/12/21 04/12/21 04:30 04:30 05:41 WBC 17.5 H RBC 2.68 L Hgb 7.6 L Hct 24.0 L MCH MCHC RDW 18.0 H Plt Count Lymph % (Auto) [place] # (Auto) Eos # (Auto) Seg Neutrophils % Lymphocytes % (Manual) Eosinophils % (Manual) Basophils % (Manual) Nucleated RBC % Seg Neutrophils # Seg Neutrophils # Man Lymphocytes # (Manual) Monocytes # (Manual) Eosinophils # (Manual) Basophils # (Manual) Percent Retic PT INR Fibrinogen D-Dimer ABG pH POC ABG pCO2 POC ABG pO2 ABG pO2 ABG HCO3 ABG O2 Saturation ABG Base Excess ABG Hemoglobin ABG Oxyhemoglobin ABG Sodium ABG Potassium ABG Chloride ABG Glucose Oxyhemoglobin Carboxyhemoglobin Sodium Potassium Chloride Carbon Dioxide BUN 87 H Creatinine 4.5 H Glucose 136 H POC Glucose 115 H Hemoglobin A1c Calcium Phosphorus 6.50 H Magnesium AST ALT Alkaline Phosphatase Lactate Dehydrogenase C-Reactive Protein Total Protein Albumin Triglycerides Arterial Blood Glucose Arterial Blood Ionized Calcium Urine WBC (Auto) U Epithel Cells (Auto) Urine Creatinine Random Vancomycin Coronavirus (PCR) Crossmatch 04/12/21 04/12/21 04/13/21 11:57 17:19 00:24 WBC RBC Hgb Hct MCH MCHC RDW Plt Count Lymph % (Auto) [place] # (Auto) Eos # (Auto) Seg Neutrophils % Lymphocytes % (Manual) Eosinophils % (Manual) Basophils % (Manual) Nucleated RBC % Seg Neutrophils # Seg Neutrophils # Man Lymphocytes # (Manual) Monocytes # (Manual) Eosinophils # (Manual) Basophils # (Manual) Percent Retic PT INR Fibrinogen D-Dimer ABG pH POC ABG pCO2 POC ABG pO2 ABG pO2 ABG HCO3 ABG O2 Saturation ABG Base Excess ABG Hemoglobin ABG Oxyhemoglobin ABG Sodium ABG Potassium ABG Chloride ABG Glucose Oxyhemoglobin Carboxyhemoglobin Sodium Potassium Chloride Carbon Dioxide BUN Creatinine Glucose POC Glucose 137 H 177 H 188 H Hemoglobin A1c Calcium Phosphorus Magnesium AST ALT Alkaline Phosphatase Lactate Dehydrogenase C-Reactive Protein Total Protein Albumin Triglycerides Arterial Blood Glucose Arterial Blood Ionized Calcium Urine WBC (Auto) U Epithel Cells (Auto) Urine Creatinine Random Vancomycin Coronavirus (PCR) Crossmatch 04/13/21 04/13/21 04/13/21 03:52 04:44 04:44 WBC 13.1 H RBC 2.57 L Hgb 7.3 L Hct 23.2 L MCH MCHC RDW 17.6 H Plt Count 73 L Lymph % (Auto) [place] # (Auto) Eos # (Auto) Seg Neutrophils % Lymphocytes % (Manual) Eosinophils % (Manual) Basophils % (Manual) Nucleated RBC % Seg Neutrophils # Seg Neutrophils # Man Lymphocytes # (Manual) Monocytes # (Manual) Eosinophils # (Manual) Basophils # (Manual) Percent Retic PT 16.0 H INR 1.16 H Fibrinogen D-Dimer ABG pH 7.195 L* POC ABG pCO2 POC ABG pO2 ABG pO2 98.9 H ABG HCO3 ABG O2 Saturation ABG Base Excess -2.9 L ABG Hemoglobin 7.4 L ABG Oxyhemoglobin ABG Sodium ABG Potassium ABG Chloride ABG Glucose Oxyhemoglobin 94.3 L Carboxyhemoglobin Sodium Potassium Chloride Carbon Dioxide BUN Creatinine Glucose POC Glucose Hemoglobin A1c Calcium Phosphorus Magnesium AST ALT Alkaline Phosphatase Lactate Dehydrogenase C-Reactive Protein Total Protein Albumin Triglycerides Arterial Blood Glucose Arterial Blood Ionized Calcium Urine WBC (Auto) U Epithel Cells (Auto) Urine Creatinine Random Vancomycin Coronavirus (PCR) Crossmatch 04/13/21 04/13/21 04/13/21 04:44 05:26 11:32 WBC RBC Hgb Hct MCH MCHC RDW Plt Count Lymph % (Auto) [place] # (Auto) Eos # (Auto) Seg Neutrophils % Lymphocytes % (Manual) Eosinophils % (Manual) Basophils % (Manual) Nucleated RBC % Seg Neutrophils # Seg Neutrophils # Man Lymphocytes # (Manual) Monocytes # (Manual) Eosinophils # (Manual) Basophils # (Manual) Percent Retic PT INR Fibrinogen D-Dimer ABG pH POC ABG pCO2 POC ABG pO2 ABG pO2 ABG HCO3 ABG O2 Saturation ABG Base Excess ABG Hemoglobin ABG Oxyhemoglobin ABG Sodium ABG Potassium ABG Chloride ABG Glucose Oxyhemoglobin Carboxyhemoglobin Sodium Potassium Chloride Carbon Dioxide BUN 75 H Creatinine 3.8 H Glucose 183 H POC Glucose 163 H 169 H Hemoglobin A1c Calcium Phosphorus 6.80 H Magnesium AST ALT Alkaline Phosphatase Lactate Dehydrogenase C-Reactive Protein Total Protein Albumin Triglycerides Arterial Blood Glucose Arterial Blood Ionized Calcium Urine WBC (Auto) U Epithel Cells (Auto) Urine Creatinine Random Vancomycin Coronavirus (PCR) Crossmatch 04/13/21 04/13/21 04/13/21 17:28 21:00 23:28 WBC RBC Hgb Hct MCH MCHC RDW Plt Count Lymph % (Auto) [place] # (Auto) Eos # (Auto) Seg Neutrophils % Lymphocytes % (Manual) Eosinophils % (Manual) Basophils % (Manual) Nucleated RBC % Seg Neutrophils # Seg Neutrophils # Man Lymphocytes # (Manual) Monocytes # (Manual) Eosinophils # (Manual) Basophils # (Manual) Percent Retic PT INR Fibrinogen D-Dimer ABG pH POC ABG pCO2 48.6 H POC ABG pO2 ABG pO2 ABG HCO3 ABG O2 Saturation ABG Base Excess ABG Hemoglobin 8.3 L ABG Oxyhemoglobin ABG Sodium 134.6 L ABG Potassium ABG Chloride ABG Glucose 243 H Oxyhemoglobin Carboxyhemoglobin 0.4 L Sodium Potassium Chloride Carbon Dioxide BUN Creatinine Glucose POC Glucose 174 H 207 H Hemoglobin A1c Calcium Phosphorus Magnesium AST ALT Alkaline Phosphatase Lactate Dehydrogenase C-Reactive Protein Total Protein Albumin Triglycerides Arterial Blood Glucose 243 H Arterial Blood Ionized Calcium Urine WBC (Auto) U Epithel Cells (Auto) Urine Creatinine Random Vancomycin Coronavirus (PCR) Crossmatch 04/14/21 04/14/21 04/14/21 04:43 04:43 05:28 WBC 11.8 H RBC 2.58 L Hgb 7.5 L Hct 23.4 L MCH MCHC RDW 17.1 H Plt Count 45 L Lymph % (Auto) [place] # (Auto) Eos # (Auto) Seg Neutrophils % Lymphocytes % (Manual) Eosinophils % (Manual) Basophils % (Manual) Nucleated RBC % Seg Neutrophils # Seg Neutrophils # Man Lymphocytes # (Manual) Monocytes # (Manual) Eosinophils # (Manual) Basophils # (Manual) Percent Retic PT INR Fibrinogen D-Dimer ABG pH POC ABG pCO2 POC ABG pO2 ABG pO2 ABG HCO3 ABG O2 Saturation ABG Base Excess ABG Hemoglobin ABG Oxyhemoglobin ABG Sodium ABG Potassium ABG Chloride ABG Glucose Oxyhemoglobin Carboxyhemoglobin Sodium Potassium Chloride Carbon Dioxide BUN 74 H Creatinine 3.1 H Glucose 220 H POC Glucose 200 H Hemoglobin A1c Calcium Phosphorus Magnesium AST ALT Alkaline Phosphatase Lactate Dehydrogenase C-Reactive Protein Total Protein Albumin Triglycerides Arterial Blood Glucose Arterial Blood Ionized Calcium Urine WBC (Auto) U Epithel Cells (Auto) Urine Creatinine Random Vancomycin Coronavirus (PCR) Crossmatch 04/14/21 04/14/21 04/14/21 11:10 16:20 21:00 WBC RBC Hgb Hct MCH MCHC RDW Plt Count Lymph % (Auto) [place] # (Auto) Eos # (Auto) Seg Neutrophils % Lymphocytes % (Manual) Eosinophils % (Manual) Basophils % (Manual) Nucleated RBC % Seg Neutrophils # Seg Neutrophils # Man Lymphocytes # (Manual) Monocytes # (Manual) Eosinophils # (Manual) Basophils # (Manual) Percent Retic PT INR Fibrinogen D-Dimer ABG pH 7.207 L POC ABG pCO2 67.6 H POC ABG pO2 143.7 H ABG pO2 ABG HCO3 ABG O2 Saturation ABG Base Excess ABG Hemoglobin 7.6 L ABG Oxyhemoglobin ABG Sodium 133.8 L ABG Potassium ABG Chloride ABG Glucose 158 H Oxyhemoglobin Carboxyhemoglobin Sodium Potassium Chloride Carbon Dioxide BUN Creatinine Glucose POC Glucose 160 H 168 H Hemoglobin A1c Calcium Phosphorus Magnesium AST ALT Alkaline Phosphatase Lactate Dehydrogenase C-Reactive Protein Total Protein Albumin Triglycerides Arterial Blood Glucose 158 H Arterial Blood Ionized Calcium Urine WBC (Auto) U Epithel Cells (Auto) Urine Creatinine Random Vancomycin Coronavirus (PCR) Crossmatch 04/14/21 04/15/21 04/15/21 23:53 08:20 11:10 WBC RBC Hgb Hct MCH MCHC RDW Plt Count Lymph % (Auto) [place] # (Auto) Eos # (Auto) Seg Neutrophils % Lymphocytes % (Manual) Eosinophils % (Manual) Basophils % (Manual) Nucleated RBC % Seg Neutrophils # Seg Neutrophils # Man Lymphocytes # (Manual) Monocytes # (Manual) Eosinophils # (Manual) Basophils # (Manual) Percent Retic PT INR Fibrinogen D-Dimer ABG pH 7.305 L POC ABG pCO2 48.3 H POC ABG pO2 ABG pO2 ABG HCO3 ABG O2 Saturation ABG Base Excess ABG Hemoglobin 7.5 L ABG Oxyhemoglobin ABG Sodium 134.1 L ABG Potassium ABG Chloride ABG Glucose 146 H Oxyhemoglobin Carboxyhemoglobin Sodium Potassium Chloride Carbon Dioxide BUN Creatinine Glucose POC Glucose 147 H 161 H Hemoglobin A1c Calcium Phosphorus Magnesium AST ALT Alkaline Phosphatase Lactate Dehydrogenase C-Reactive Protein Total Protein Albumin Triglycerides Arterial Blood Glucose 146 H Arterial Blood Ionized Calcium Urine WBC (Auto) U Epithel Cells (Auto) Urine Creatinine Random Vancomycin Coronavirus (PCR) Crossmatch 04/15/21 04/15/21 04/15/21 12:10 12:10 16:21 WBC RBC Hgb Hct MCH MCHC RDW Plt Count Lymph % (Auto) [place] # (Auto) Eos # (Auto) Seg Neutrophils % Lymphocytes % (Manual) Eosinophils % (Manual) Basophils % (Manual) Nucleated RBC % Seg Neutrophils # Seg Neutrophils # Man Lymphocytes # (Manual) Monocytes # (Manual) Eosinophils # (Manual) Basophils # (Manual) Percent Retic PT INR Fibrinogen D-Dimer ABG pH POC ABG pCO2 POC ABG pO2 ABG pO2 ABG HCO3 ABG O2 Saturation ABG Base Excess ABG Hemoglobin ABG Oxyhemoglobin ABG Sodium ABG Potassium ABG Chloride ABG Glucose Oxyhemoglobin Carboxyhemoglobin Sodium Potassium Chloride Carbon Dioxide BUN Creatinine Glucose POC Glucose 166 H 157 H Hemoglobin A1c Calcium Phosphorus Magnesium AST ALT Alkaline Phosphatase Lactate Dehydrogenase C-Reactive Protein Total Protein Albumin Triglycerides Arterial Blood Glucose Arterial Blood Ionized Calcium Urine WBC (Auto) U Epithel Cells (Auto) Urine Creatinine Random Vancomycin Coronavirus (PCR) Crossmatch See Detail 04/15/21 04/15/21 04/15/21 18:35 23:16 Unknown WBC 11.8 H RBC 2.41 L Hgb 7.1 L Hct 22.4 L MCH MCHC RDW 17.0 H Plt Count 38 L Lymph % (Auto) [place] # (Auto) Eos # (Auto) Seg Neutrophils % Lymphocytes % (Manual) Eosinophils % (Manual) Basophils % (Manual) Nucleated RBC % Seg Neutrophils # Seg Neutrophils # Man Lymphocytes # (Manual) Monocytes # (Manual) Eosinophils # (Manual) Basophils # (Manual) Percent Retic PT INR Fibrinogen D-Dimer ABG pH POC ABG pCO2 POC ABG pO2 ABG pO2 ABG HCO3 ABG O2 Saturation ABG Base Excess ABG Hemoglobin ABG Oxyhemoglobin ABG Sodium ABG Potassium ABG Chloride ABG Glucose Oxyhemoglobin Carboxyhemoglobin Sodium Potassium Chloride Carbon Dioxide BUN Creatinine Glucose POC Glucose 148 H Hemoglobin A1c Calcium Phosphorus Magnesium AST ALT Alkaline Phosphatase Lactate Dehydrogenase C-Reactive Protein Total Protein Albumin Triglycerides Arterial Blood Glucose Arterial Blood Ionized Calcium Urine WBC (Auto) 156.0 H U Epithel Cells (Auto) 15.0 H Urine Creatinine Random Vancomycin Coronavirus (PCR) Crossmatch 04/15/21 04/15/21 04/16/21 Unknown Unknown 04:54 WBC 15.4 H RBC 2.59 L Hgb 7.7 L Hct 24.1 L MCH MCHC RDW 16.6 H Plt Count 42 L Lymph % (Auto) [place] # (Auto) Eos # (Auto) Seg Neutrophils % Lymphocytes % (Manual) Eosinophils % (Manual) Basophils % (Manual) Nucleated RBC % Seg Neutrophils # Seg Neutrophils # Man Lymphocytes # (Manual) Monocytes # (Manual) Eosinophils # (Manual) Basophils # (Manual) Percent Retic PT 16.3 H INR 1.18 H Fibrinogen D-Dimer ABG pH POC ABG pCO2 POC ABG pO2 ABG pO2 ABG HCO3 ABG O2 Saturation ABG Base Excess ABG Hemoglobin ABG Oxyhemoglobin ABG Sodium ABG Potassium ABG Chloride ABG Glucose Oxyhemoglobin Carboxyhemoglobin Sodium Potassium Chloride Carbon Dioxide BUN 67 H Creatinine 3.3 H Glucose 155 H POC Glucose Hemoglobin A1c Calcium 8.3 L Phosphorus 5.70 H Magnesium AST 85 H ALT 63 H Alkaline Phosphatase Lactate Dehydrogenase C-Reactive Protein Total Protein Albumin 2.4 L Triglycerides Arterial Blood Glucose Arterial Blood Ionized Calcium Urine WBC (Auto) U Epithel Cells (Auto) Urine Creatinine Random Vancomycin Coronavirus (PCR) Crossmatch 04/16/21 04/16/21 04/16/21 04:54 05:23 11:06 WBC RBC Hgb Hct MCH MCHC RDW Plt Count Lymph % (Auto) [place] # (Auto) Eos # (Auto) Seg Neutrophils % Lymphocytes % (Manual) Eosinophils % (Manual) Basophils % (Manual) Nucleated RBC % Seg Neutrophils # Seg Neutrophils # Man Lymphocytes # (Manual) Monocytes # (Manual) Eosinophils # (Manual) Basophils # (Manual) Percent Retic PT INR Fibrinogen D-Dimer ABG pH POC ABG pCO2 POC ABG pO2 ABG pO2 ABG HCO3 ABG O2 Saturation ABG Base Excess ABG Hemoglobin ABG Oxyhemoglobin ABG Sodium ABG Potassium ABG Chloride ABG Glucose Oxyhemoglobin Carboxyhemoglobin Sodium Potassium Chloride Carbon Dioxide BUN 82 H Creatinine 3.4 H Glucose 142 H POC Glucose 118 H 133 H Hemoglobin A1c Calcium 8.2 L Phosphorus Magnesium AST ALT Alkaline Phosphatase Lactate Dehydrogenase C-Reactive Protein Total Protein Albumin Triglycerides Arterial Blood Glucose Arterial Blood Ionized Calcium Urine WBC (Auto) U Epithel Cells (Auto) Urine Creatinine Random Vancomycin Coronavirus (PCR) Crossmatch 04/16/21 04/16/21 04/17/21 15:50 23:36 04:10 WBC RBC Hgb Hct MCH MCHC RDW Plt Count Lymph % (Auto) [place] # (Auto) Eos # (Auto) Seg Neutrophils % Lymphocytes % (Manual) Eosinophils % (Manual) Basophils % (Manual) Nucleated RBC % Seg Neutrophils # Seg Neutrophils # Man Lymphocytes # (Manual) Monocytes # (Manual) Eosinophils # (Manual) Basophils # (Manual) Percent Retic PT INR Fibrinogen D-Dimer ABG pH 7.300 L 7.294 L POC ABG pCO2 49.3 H 51.9 H POC ABG pO2 ABG pO2 ABG HCO3 ABG O2 Saturation ABG Base Excess ABG Hemoglobin 9.5 L 7.4 L ABG Oxyhemoglobin ABG Sodium 133.8 L 132.3 L ABG Potassium 4.7 H 5.4 H ABG Chloride ABG Glucose 155 H 187 H Oxyhemoglobin Carboxyhemoglobin 0.1 L Sodium Potassium Chloride Carbon Dioxide BUN Creatinine Glucose POC Glucose 141 H Hemoglobin A1c Calcium Phosphorus Magnesium AST ALT Alkaline Phosphatase Lactate Dehydrogenase C-Reactive Protein Total Protein Albumin Triglycerides Arterial Blood Glucose 155 H 187 H Arterial Blood Ionized Calcium Urine WBC (Auto) U Epithel Cells (Auto) Urine Creatinine Random Vancomycin Coronavirus (PCR) Crossmatch 04/17/21 04/17/21 04/17/21 04:42 04:42 10:58 WBC 14.1 H 12.3 H RBC 2.39 L 2.25 L Hgb 7.1 L 6.7 L Hct 22.3 L 20.9 L MCH MCHC RDW 16.8 H 16.7 H Plt Count 49 L 53 L Lymph % (Auto) [place] # (Auto) Eos # (Auto) Seg Neutrophils % Lymphocytes % (Manual) 10.0 L Eosinophils % (Manual) Basophils % (Manual) Nucleated RBC % Seg Neutrophils # Seg Neutrophils # Man 9.6 H Lymphocytes # (Manual) Monocytes # (Manual) Eosinophils # (Manual) Basophils # (Manual) Percent Retic PT INR Fibrinogen D-Dimer ABG pH POC ABG pCO2 POC ABG pO2 ABG pO2 ABG HCO3 ABG O2 Saturation ABG Base Excess ABG Hemoglobin ABG Oxyhemoglobin ABG Sodium ABG Potassium ABG Chloride ABG Glucose Oxyhemoglobin Carboxyhemoglobin Sodium Potassium 5.7 H D Chloride Carbon Dioxide BUN 101 H Creatinine 3.8 H Glucose 179 H POC Glucose Hemoglobin A1c Calcium 8.1 L Phosphorus 7.90 H Magnesium AST ALT Alkaline Phosphatase Lactate Dehydrogenase C-Reactive Protein Total Protein Albumin Triglycerides Arterial Blood Glucose Arterial Blood Ionized Calcium Urine WBC (Auto) U Epithel Cells (Auto) Urine Creatinine Random Vancomycin Coronavirus (PCR) Crossmatch 04/17/21 04/17/21 04/17/21 10:58 10:58 12:25 WBC RBC Hgb Hct MCH MCHC RDW Plt Count Lymph % (Auto) [place] # (Auto) Eos # (Auto) Seg Neutrophils % Lymphocytes % (Manual) Eosinophils % (Manual) Basophils % (Manual) Nucleated RBC % Seg Neutrophils # Seg Neutrophils # Man Lymphocytes # (Manual) Monocytes # (Manual) Eosinophils # (Manual) Basophils # (Manual) Percent Retic PT 17.1 H INR 1.26 H Fibrinogen D-Dimer ABG pH POC ABG pCO2 POC ABG pO2 ABG pO2 ABG HCO3 ABG O2 Saturation ABG Base Excess ABG Hemoglobin ABG Oxyhemoglobin ABG Sodium ABG Potassium ABG Chloride ABG Glucose Oxyhemoglobin Carboxyhemoglobin Sodium Potassium 5.9 H Chloride Carbon Dioxide 20 L BUN 112 H Creatinine 3.6 H Glucose 174 H POC Glucose 150 H Hemoglobin A1c Calcium 7.8 L Phosphorus Magnesium AST ALT Alkaline Phosphatase Lactate Dehydrogenase C-Reactive Protein Total Protein 5.7 L Albumin 2.1 L Triglycerides Arterial Blood Glucose Arterial Blood Ionized Calcium Urine WBC (Auto) U Epithel Cells (Auto) Urine Creatinine Random Vancomycin Coronavirus (PCR) Crossmatch 04/17/21 04/17/21 04/18/21 17:57 23:00 00:08 WBC RBC Hgb Hct MCH MCHC RDW Plt Count Lymph % (Auto) [place] # (Auto) Eos # (Auto) Seg Neutrophils % Lymphocytes % (Manual) Eosinophils % (Manual) Basophils % (Manual) Nucleated RBC % Seg Neutrophils # Seg Neutrophils # Man Lymphocytes # (Manual) Monocytes # (Manual) Eosinophils # (Manual) Basophils # (Manual) Percent Retic PT INR Fibrinogen D-Dimer ABG pH POC ABG pCO2 POC ABG pO2 81.2 L ABG pO2 ABG HCO3 ABG O2 Saturation ABG Base Excess ABG Hemoglobin 8.6 L ABG Oxyhemoglobin ABG Sodium 133.0 L ABG Potassium ABG Chloride ABG Glucose 155 H Oxyhemoglobin Carboxyhemoglobin Sodium Potassium Chloride Carbon Dioxide BUN Creatinine Glucose POC Glucose 153 H 138 H Hemoglobin A1c Calcium Phosphorus Magnesium AST ALT Alkaline Phosphatase Lactate Dehydrogenase C-Reactive Protein Total Protein Albumin Triglycerides Arterial Blood Glucose 155 H Arterial Blood Ionized Calcium 4.4 L Urine WBC (Auto) U Epithel Cells (Auto) Urine Creatinine Random Vancomycin Coronavirus (PCR) Crossmatch 04/18/21 04/18/21 04/18/21 04:55 04:55 05:25 WBC 12.4 H RBC 2.55 L Hgb 7.9 L Hct 23.6 L MCH MCHC RDW 16.1 H Plt Count 99 L Lymph % (Auto) [place] # (Auto) Eos # (Auto) Seg Neutrophils % Lymphocytes % (Manual) Eosinophils % (Manual) Basophils % (Manual) Nucleated RBC % Seg Neutrophils # Seg Neutrophils # Man Lymphocytes # (Manual) Monocytes # (Manual) Eosinophils # (Manual) Basophils # (Manual) Percent Retic PT INR Fibrinogen D-Dimer ABG pH POC ABG pCO2 POC ABG pO2 ABG pO2 ABG HCO3 ABG O2 Saturation ABG Base Excess ABG Hemoglobin ABG Oxyhemoglobin ABG Sodium ABG Potassium ABG Chloride ABG Glucose Oxyhemoglobin Carboxyhemoglobin Sodium 136 L Potassium Chloride Carbon Dioxide BUN 86 H Creatinine 3.1 H Glucose 180 H POC Glucose 163 H Hemoglobin A1c Calcium 8.2 L Phosphorus 6.50 H Magnesium AST ALT Alkaline Phosphatase Lactate Dehydrogenase C-Reactive Protein Total Protein Albumin Triglycerides Arterial Blood Glucose Arterial Blood Ionized Calcium Urine WBC (Auto) U Epithel Cells (Auto) Urine Creatinine Random Vancomycin Coronavirus (PCR) Crossmatch 04/18/21 11:49 WBC RBC Hgb Hct MCH MCHC RDW Plt Count Lymph % (Auto) [place] # (Auto) Eos # (Auto) Seg Neutrophils % Lymphocytes % (Manual) Eosinophils % (Manual) Basophils % (Manual) Nucleated RBC % Seg Neutrophils # Seg Neutrophils # Man Lymphocytes # (Manual) Monocytes # (Manual) Eosinophils # (Manual) Basophils # (Manual) Percent Retic PT INR Fibrinogen D-Dimer ABG pH POC ABG pCO2 POC ABG pO2 ABG pO2 ABG HCO3 ABG O2 Saturation ABG Base Excess ABG Hemoglobin ABG Oxyhemoglobin ABG Sodium ABG Potassium ABG Chloride ABG Glucose Oxyhemoglobin Carboxyhemoglobin Sodium Potassium Chloride Carbon Dioxide BUN Creatinine Glucose POC Glucose 122 H Hemoglobin A1c Calcium Phosphorus Magnesium AST ALT Alkaline Phosphatase Lactate Dehydrogenase C-Reactive Protein Total Protein Albumin Triglycerides Arterial Blood Glucose Arterial Blood Ionized Calcium Urine WBC (Auto) U Epithel Cells (Auto) Urine Creatinine Random Vancomycin Coronavirus (PCR) Crossmatch Chest x-ray: report reviewed, image reviewed Additional Studies: CHEST 1 VIEW 04/17/2021 8:36 AM INDICATION / CLINICAL INFORMATION: resp failure. COMPARISON: 04/15/2021 FINDINGS: SUPPORT DEVICES: Right IJ CVL and endotracheal tube are in good position. Additional tube projecting over mid chest may represent esophagogastric tube located in the midesophagus. HEART / MEDIASTINUM: Stable. LUNGS / PLEURA: Bilateral airspace opacities have similar appearance. No pneumothorax. ADDITIONAL FINDINGS: No significant additional findings. IMPRESSION: 1. Bilateral airspace opacities have similar appearance. 2. Possible esophagogastric tube terminating in mid esophagus. Recommend clinical correlation. Allied health notes reviewed: nursing
[2021-04-18] MEDS: LORazepam 2 MG/ML VIAL IV PRN (18:58)
[2021-04-19] MEDS: INSULIN LISPRO 100 UNIT/ML SUB-Q SCH ×4 (00:36→17:10)
[2021-04-19] MEDS: fentaNYL DRIP Premix 2,000 MCG/100 ML BAG IV SCH ×6 (01:52→20:55)
[2021-04-19] MEDS: IPRATROPIUM/ALBUTEROL SULFATE 3 ML AMPUL.NEB IH SCH ×4 (02:40→20:07)
--- NOTE | 2021-04-19 05:13 | XRay Report ---
XR chest 1V ap INDICATION / CLINICAL INFORMATION: hypoxia. COMPARISON: 04/17/2021 FINDINGS: SUPPORT DEVICES: Unchanged. HEART /PULMONARY VASCULATURE: Unchanged. LUNGS / PLEURA: Moderate airspace disease remains throughout the right lung and involving the left mi d and lower lung. No sizable pleural effusion. No pneumothorax. IMPRESSION: 1. No significant interval change. Signer Name: Xavi Coker MD Signed: 04/19/2021 5:09 AM Workstation Name: [id number]
[2021-04-19] MEDS: MIDAZOLAM 100 MG in SODIUM CHLORIDE 0.9% 80 ML IV SCH ×2 (05:32→20:55)
[2021-04-19] MEDS: ACETAMINOPHEN 325 MG/10.15 ML ORAL LIQD UNIT DOSE FEEDTUBE PRN ×2 (05:37→21:23)
[2021-04-19 06:05] LABS: Hematocrit 26.2 % (30.3-42.9); Hemoglobin 8.6 gm/dl (10.1-14.3); Mean Corpuscular HGB Conc 33 % (30-34); Mean Corpuscular Volume 94 fl (79-97); Platelet Count 121 K/mm3 (140-440); Red Blood Count 2.79 M/mm3 (3.65-5.03); Red Cell Distribution Width 17.3 % (13.2-15.2)
[2021-04-19 06:07] LABS: Calcium 8.2 mg/dL (8.4-10.2)
[2021-04-19 09:44] LABS: Heparin-Induced Platelet Antib Positive (Negative); Unfractionated Heparin Negative (Negative)
--- NOTE | 2021-04-19 10:17 | Progress Note ---
Subjective Date of service: 04/19/21 Principal diagnosis: Ac hypoxemic resp failure; AE-Asthma; SAI; Crohn's; COVID- 19; Pneumonia Interval history: Impression/Plan: #Acute kidney injury: dialysis dependent plans for HD prn as hemodynamics allow, plans for today if tolerates will follow up lytes Assess daily for needs for additional sessions as hemodynamics Strict input and output Avoid nephrotoxin Renally dose medications Keep MAP > 65 # Hyperkalemia, treat medically, attempt to controlled with HD rec prn kayexalate dosing #Respiratory failure Covid 19 infection currently intubated UF as tolerated with HD, limited by hemodynamic instability #diffuse rash--s/p plasma exchange noted #Overall prognosis remains poor, palliative care appropriate Subjective Principal diagnosis: Ac hypoxemic resp failure; AE-Asthma; SAI; Crohn's; COVID- 19; Pneumonia Interval history: Remains intubated. Objective - Exam exam deferred for preservation of PPE Objective - Vital Signs Vital signs: Vital Signs - 12hr 04/18/21 04/18/21 04/18/21 22:30 22:46 23:00 Temperature Pulse Rate 113 H 112 H 110 H Pulse Rate [ Anterior Bilateral Throughout] Pulse Rate [ From Monitor] Respiratory 9 L 12 11 L Rate Respiratory Rate [Anterior Bilateral Throughout] Blood Pressure O2 Sat by Pulse 100 100 100 Oximetry 04/18/21 04/18/21 04/18/21 23:16 23:30 23:36 Temperature Pulse Rate 108 H 109 H 109 H Pulse Rate [ Anterior Bilateral Throughout] Pulse Rate [ From Monitor] Respiratory 15 12 10 L Rate Respiratory Rate [Anterior Bilateral Throughout] Blood Pressure O2 Sat by Pulse 100 98 98 Oximetry 04/18/21 04/19/21 04/19/21 23:46 00:00 00:10 Temperature 99.7 F H Pulse Rate 108 H 109 H 109 H Pulse Rate [ Anterior Bilateral Throughout] Pulse Rate [ From Monitor] Respiratory 11 L 10 L Rate Respiratory Rate [Anterior Bilateral Throughout] Blood Pressure 119/56 O2 Sat by Pulse 98 98 99 Oximetry 04/19/21 04/19/21 04/19/21 00:16 00:30 00:46 Temperature Pulse Rate 109 H 107 H 107 H Pulse Rate [ Anterior Bilateral Throughout] Pulse Rate [ From Monitor] Respiratory 11 L 10 L 12 Rate Respiratory Rate [Anterior Bilateral Throughout] Blood Pressure O2 Sat by Pulse 98 99 99 Oximetry 04/19/21 04/19/21 04/19/21 01:00 01:16 01:30 Temperature Pulse Rate 107 H 106 H 107 H Pulse Rate [ Anterior Bilateral Throughout] Pulse Rate [ From Monitor] Respiratory 10 L 11 L 11 L Rate Respiratory Rate [Anterior Bilateral Throughout] Blood Pressure O2 Sat by Pulse 98 99 99 Oximetry 04/19/21 04/19/21 04/19/21 01:46 02:00 02:16 Temperature Pulse Rate 108 H 119 H 115 H Pulse Rate [ Anterior Bilateral Throughout] Pulse Rate [ From Monitor] Respiratory 9 L 13 12 Rate Respiratory Rate [Anterior Bilateral Throughout] Blood Pressure O2 Sat by Pulse 100 100 100 Oximetry 04/19/21 04/19/21 04/19/21 02:30 02:40 02:46 Temperature Pulse Rate 118 H 117 H Pulse Rate [ 119 H Anterior Bilateral Throughout] Pulse Rate [ From Monitor] Respiratory 13 13 Rate Respiratory 30 H Rate [Anterior Bilateral Throughout] Blood Pressure O2 Sat by Pulse 100 100 Oximetry 04/19/21 04/19/21 04/19/21 03:00 03:16 03:30 Temperature Pulse Rate 118 H 119 H 118 H Pulse Rate [ Anterior Bilateral Throughout] Pulse Rate [ From Monitor] Respiratory 13 15 13 Rate Respiratory Rate [Anterior Bilateral Throughout] Blood Pressure O2 Sat by Pulse 100 100 98 Oximetry 04/19/21 04/19/21 04/19/21 03:46 04:00 04:08 Temperature 100.2 F H Pulse Rate 118 H 122 H 119 H Pulse Rate [ Anterior Bilateral Throughout] Pulse Rate [ 124 H From Monitor] Respiratory 14 15 4 L Rate Respiratory Rate [Anterior Bilateral Throughout] Blood Pressure 129/65 O2 Sat by Pulse 100 98 97 Oximetry 04/19/21 04/19/21 04/19/21 04:16 04:30 04:46 Temperature Pulse Rate 117 H 126 H 127 H Pulse Rate [ Anterior Bilateral Throughout] Pulse Rate [ From Monitor] Respiratory 12 15 16 Rate Respiratory Rate [Anterior Bilateral Throughout] Blood Pressure O2 Sat by Pulse 99 100 96 Oximetry 04/19/21 04/19/21 04/19/21 05:00 05:16 05:30 Temperature Pulse Rate 126 H 126 H 126 H Pulse Rate [ Anterior Bilateral Throughout] Pulse Rate [ From Monitor] Respiratory 14 16 15 Rate Respiratory Rate [Anterior Bilateral Throughout] Blood Pressure O2 Sat by Pulse 97 97 98 Oximetry 04/19/21 04/19/21 04/19/21 05:46 06:00 06:16 Temperature Pulse Rate 130 H 126 H 123 H Pulse Rate [ Anterior Bilateral Throughout] Pulse Rate [ From Monitor] Respiratory 15 15 12 Rate Respiratory Rate [Anterior Bilateral Throughout] Blood Pressure O2 Sat by Pulse 98 97 96 Oximetry 04/19/21 04/19/21 04/19/21 06:30 06:46 07:00 Temperature Pulse Rate 123 H 123 H 120 H Pulse Rate [ Anterior Bilateral Throughout] Pulse Rate [ From Monitor] Respiratory 12 14 12 Rate Respiratory Rate [Anterior Bilateral Throughout] Blood Pressure O2 Sat by Pulse 96 96 97 Oximetry 04/19/21 04/19/21 04/19/21 07:16 07:30 07:34 Temperature 99.4 F Pulse Rate 120 H 111 H Pulse Rate [ Anterior Bilateral Throughout] Pulse Rate [ From Monitor] Respiratory 13 10 L Rate Respiratory Rate [Anterior Bilateral Throughout] Blood Pressure O2 Sat by Pulse 97 97 Oximetry 04/19/21 04/19/21 04/19/21 07:46 08:30 08:31 Temperature Pulse Rate 116 H 113 H Pulse Rate [ 113 H Anterior Bilateral Throughout] Pulse Rate [ From Monitor] Respiratory 15 Rate Respiratory 32 H Rate [Anterior Bilateral Throughout] Blood Pressure 108/61 O2 Sat by Pulse 96 97 Oximetry - Lab 04/19/21 05:00 04/19/21 04:00 Most recent lab results ABG pH 7.301 (7.320-7.450) L 04/19/21 03:09 ABG pCO2 68.6 mm Hg 04/13/21 03:52 ABG pO2 98.9 mm Hg (80.0-90.0) H 04/13/21 03:52 ABG HCO3 25.5 mmol/L (20.0-26.0) 04/13/21 03:52 ABG O2 Saturation 94.9 (0-100) 04/19/21 03:09 Calcium 8.2 mg/dL (8.4-10.2) L 04/19/21 04:00 Phosphorus 6.50 mg/dL (2.5-4.5) H 04/18/21 04:55 Magnesium 2.00 mg/dL (1.7-2.3) 04/18/21 04:55 Urine Creatinine 40.1 mg/dL (0.1-20.0) H 03/14/21 17:50 Urine Sodium 124 mmol/L 03/14/21 17:50 Medications & Allergies - Medications Allergies/Adverse Reactions: Allergies oxycodone HCl [From Percocet] Allergy (Severe, Verified 03/30/21 14:01) Swelling cefepime Allergy (Verified 04/06/21 13:38) Rash hydrocodone bitartrate [From Vicodin] Allergy (Verified 03/31/21 08:20) Swelling ALLERGY TO TYLENOL VS OXYCODONE ACTIVE ORDER REMOVED FROM [facility] SINCE UNABLE TO CONFIRM WITH FAMILY Home Medications: Home Medications Medication Instructions Recorded Confirmed Last Taken Type Chlorhexidine Mouthwash [Peridex] 15 ml MM BID #1 bottle 10/11/20 03/13/21 Unknown Rx Clindamycin [Clindamycin CAP] 300 mg PO Q8H #21 cap 10/11/20 03/13/21 Unknown Rx Naproxen 500 mg PO Q12H PRN #12 tablet 10/11/20 03/13/21 Unknown Rx Butalb/Acetamin/Caff 50-325-40 1 - 2 tab PO Q6HR PRN #15 tab 12/05/20 03/13/21 Unknown Rx [Fioricet 50-325-40] Famotidine [Pepcid] 20 mg PO BID #30 tablet 12/05/20 03/13/21 Unknown Rx Ketorolac [Toradol] 10 mg PO Q8H PRN #20 tablet 12/05/20 03/13/21 Unknown Rx Ondansetron [Zofran Odt] 4 mg PO Q6HR PRN #20 tab.rapdis 12/05/20 03/13/21 Unknown Rx Albuterol Sulfate [Proair 90 mcg IH Q4HR PRN #2 [email or web address] 01/01/21 03/13/21 Unknown Rx Respiclick] Mupirocin [Bactroban 2% OINT] 1 applic TP BID 7 Days #1 tube 01/01/21 03/13/21 Unknown Rx Triamcinolone Aceton 0.1% (Nf) 1 applic TP BID 14 Days #1 tube 01/01/21 03/13/21 Unknown Rx [Kenalog (NF)] predniSONE [Deltasone] 40 mg PO QDAY #8 tab 01/01/21 03/13/21 Unknown Rx Active Medications: Generic Name Dose Route Start Last Admin Trade Name Freq PRN Reason Stop Dose Admin Acetaminophen 650 mg 03/31/21 12:41 04/19/21 05:37 Acetaminophen 325 Mg/10.15 Ml Oral Liqd Unit Dose FEEDTUBE 650 mg Q6H PRN Administration TEMP >/=100.4 Albumin Human 25 gm 04/01/21 08:19 04/01/21 16:23 Albumin Human 25% (25 Gm/100 Ml) Inj IV 25 gm KARLOS PRN Administration Hypotension Albuterol 2.5 mg 03/19/21 00:53 Albuterol 2.5 Mg/3 Ml Nebu IH Q4HRT PRN Shortness Of Breath Albuterol/Ipratropium 1 ampul 03/19/21 08:00 04/19/21 08:31 Ipratropium/Albuterol Sulfate 3 Ml Ampul.Neb IH 1 ampul Q6HRT INESSA Administration Lipase/Protease/Amylase 1 each 04/09/21 17:17 Lipase 10,500/Protease 25,000/Amylase 43,750 (Units) Dr White FEEDTUBE PRN PRN For Clogged Feeding Tube Calcium Acetate 1,334 mg 04/03/21 20:00 04/18/21 21:19 Calcium Acetate 667 Mg Cap FEEDTUBE 1,334 mg TID INESSA Administration Dextrose 50 ml 03/14/21 11:02 03/15/21 11:40 Dextrose 50% In Water (25gm) 50 Ml Syringe IV 50 ml Q30MIN PRN Administration Hypoglycemia Protocol Famotidine 10 mg 03/17/21 22:00 04/18/21 21:19 Famotidine 10 Mg Tab PO 10 mg BID INESSA Administration Fentanyl 50 mcg 04/15/21 11:48 04/18/21 18:58 Fentanyl 100 Mcg/2 Ml Inj IV 50 mcg Q10MIN PRN Administration ANALGESIA Hydrocortisone Sodium Succinate 50 mg 04/18/21 10:00 04/18/21 21:19 Hydrocortisone Sod Succ 100 Mg/2 Ml Vial IV 04/21/21 22:01 50 mg Q12H INESSA Administration Hydrocortisone Sodium Succinate 25 mg 04/22/21 10:00 Hydrocortisone Sod Succ 100 Mg/2 Ml Vial IV 04/25/21 09:59 QDAY INESSA Hydrophilic Ointment 1 applic 03/14/21 17:50 04/18/21 19:02 Lip Therapy Vaseline TP 1 applic Q2HR PRN Administration Dry Lips Hydrophilic Ointment 1 applic 04/15/21 13:00 04/18/21 10:00 Aquaphor Ointment TP 1 applic Q12HR INESSA Administration Midazolam HCl 100 mg/ Sodium 100 mls @ 1 mls/hr 03/30/21 15:00 04/19/21 05:32 Chloride IV 7 mg/hr TITR INESSA 7 mls/hr Administration Protocol 1 MG/HR Vasopressin 20 unit/ Sodium 101 mls @ 9.09 mls/hr 03/30/21 20:00 04/18/21 02:04 Chloride IV 0.03 units/min TITR INESSA 9.09 mls/hr Administration 0.03 UNITS/MIN Phenylephrine HCl 100 mg/ 100 mls @ 3 mls/hr 03/31/21 04:00 04/06/21 07:58 Sodium Chloride IV 0 mcg/min TITR INESSA 0 mls/hr Titration Protocol 50 MCG/MIN Propofol 1,000 mg in 100 mls @ 4.26 mls/hr 04/07/21 13:00 04/12/21 12:52 Diprivan 10 Mg/Ml IV 0 mcg/kg/min TITR INESSA 0 mls/hr Titration Protocol 5 MCG/KG/MIN Sodium Chloride 1,000 mls @ 1 mls/hr 04/14/21 16:45 04/14/21 16:57 Nacl 0.9% 1000 Ml IV 1 mls/hr DIRECT INESSA Administration NORepinephrine/NS 8 MG-250 ML 8 mg in 250 mls @ 3.75 mls/hr 04/15/21 12:00 04/19/21 08:20 Norepinephrine/Ns 8 Mg-250 Ml (Double Conc) IV 3 mcg/min TITRATE INESSA 5.625 mls/hr Titration Protocol 2 MCG/MIN Fentanyl Citrate 2,000 mcg in 100 mls @ 7.1 mls/hr 04/15/21 13:00 04/19/21 05:32 Fentanyl Drip Premix IV 4 mcg/kg/hr TITR INESSA 28.4 mls/hr Administration Protocol 1 MCG/KG/HR Sodium Chloride 100 mls @ 999 mls/hr 04/18/21 14:26 Nacl 0.9% IV KARLOS PRN Hypotension Insulin Human Lispro 0 unit 03/14/21 12:00 04/19/21 07:27 Insulin Lispro 100 Unit/Ml SUB-Q Not Given Q6HR [facility] Protocol Lorazepam 1 mg 03/13/21 19:40 04/18/21 18:58 Lorazepam 2 Mg/Ml Vial IV 1 mg Q4H PRN Administration Anxiety Multi-Ingred Cream/Lotion/Oil/Oint 1 applic 03/14/21 17:50 04/16/21 23:02 Mineral Oil/Petrolatum, White Ophth Oint 3.5 Gm OU 1 applic Q4HR PRN Administration Dry Eye(s) Ondansetron HCl 4 mg 03/13/21 19:30 03/21/21 12:05 Ondansetron 4 Mg/2 Ml Inj IV 4 mg Q8H PRN Administration Nausea And Vomiting Quetiapine Fumarate 300 mg 04/06/21 22:00 04/18/21 21:19 Quetiapine 100 Mg Tab PO 300 mg BID INESSA Administration Senna/Docusate Sodium 1 tab 03/14/21 22:00 04/18/21 21:25 Sennosides/Docusate Sodium 8.6/50 Mg Tab FEEDTUBE Not Given BID INESSA Simple Syrup 15 ml 04/09/21 17:17 Simple Syrup 15 Ml FEEDTUBE PRN PRN Hypoglycemia Simple Syrup 30 ml 04/09/21 17:17 Simple Syrup 15 Ml FEEDTUBE PRN PRN Hypoglycemia Sodium Bicarbonate 325 mg 04/09/21 17:17 Sodium Bicarbonate 325 Mg Tab FEEDTUBE PRN PRN For Clogged Feeding Tube Sodium Chloride 10 ml 03/13/21 22:00 04/18/21 21:20 Sodium Chloride 0.9% 10 Ml Flush Syringe IV 10 ml BID INESSA Administration Sodium Chloride 10 ml 03/13/21 19:30 04/17/21 05:34 Sodium Chloride 0.9% 10 Ml Flush Syringe IV 10 ml PRN PRN Administration LINE FLUSH
[2021-04-19] MEDS: FREE WATER PO SCH ×4 (10:48→21:19)
[2021-04-19] MEDS: SENNOSIDES/DOCUSATE SODIUM 8.6/50 MG TAB FEEDTUBE SCH ×2 (10:48→21:20)
[2021-04-19] MEDS: QUEtiapine 100 MG TAB PO SCH ×2 (10:48→21:20)
[2021-04-19] MEDS: AQUAPHOR OINTMENT TP SCH ×2 (10:49→21:19)
[2021-04-19] MEDS: CALCIUM ACETATE 667 MG CAP FEEDTUBE SCH ×3 (10:52→20:20)
--- NOTE | 2021-04-19 10:54 | Progress Note ---
Assessment and Plan Assessment and plan: This is a 31-year-old female with asthma, morbid obesity and Crohn's disease admitted for COVID-19 pneumonia and and acute renal failure Hospital Course to Date: --- 04/02: plasma exchange, tessa on sedatives and vasopressor support, HD for ultrafiltration 04/03: remains on artic sun but water temp noted to be in the 30s today. Completed plasmapheresis x2 and is now on steroid taper however minimal change noted to rash/discoloration. Eyes are more clear today but remain red under lids (tops of eye). Acidosis noted on ABG. Hyperkalemia and hyperphosphatemeia persists. Sedation increased for RR in to the 40s-50s and vasopressors being titrated as tolerated. 04/04: Patient receiving 1 unit PRBC per heme's recommendation, increased respiratory effort noted, patient is acidotic on ABG and given 1 amp of bicarb in addition to bicarb drip, sedation increased for vent synchrony. No HD per nephrology given tachycardia. Seroquel started. 04/05: Patient on the vent and sedated, still on 3 pressors. Patient to wean off propofol gtt, seroquel increased. Patient afebrile overnight, however artic sun is still in place. Will attempt to take off the cooling blanket today, will continue to assess for fever curve. Continue current IV Abx therapy per ID. Plan for HD today per Nephro. Patient's family at the bedside, thoroughly discussed patient's condition and overall poor prognosis. All questions and concerns were addressed. Team will continue to f/u with family with further updates. 04/06: Patient remains sedated and on the vent, still on fent and versed, propofol was weaned off. Low Hbg this am, 2 units of PRBCs ordered. Patient febrile overnight, patient completed IV abx course, leukocytosis downtrending. c/f for possible drug fever vs DVT, BLE doppler reordered to R/O DVT. Patient remains on high dose pressors, wean pressors as tolerated for MAP of 65. 04/07: Patient appears to be in distress thi am, tachypneic and tachycardic, with increased work of breathing. Propofol stopped this am. IV push versed given and versed gtt was increased to max. D/w CCM plan to possibly restart propofol since patient is not tolerating sedation wean. Patient remains febrile throughout, pancultured yesterday by ID and IV abx was restarted. Overall poor prognosis at this time. Patient's mother and siblings at the bedside were update on patient's status. Plan for possible family meeting with the care team Monday. 04/08: Patient with worsening CXR this am, increased of vent setting overnight, respiratory acidosis from this am ABG. Patient remains febrile, IV ABx switched to Merrem for VAP coverage, ID is following. Patient remains on sedation and on pressors. Low hemoglobin this am, 1unit of PRBCs ordered. Hyperkalemia noted, per Nephro it is stable no intervention at this time plan for HD tomorrow. Spoke with patient's mom, meeting postponed for possibly next week, case management to arrange. Hospitalist also called and updated patient's mother. Team will continue to follow up. 04/09: Patient condition remains unchanged, on the vent, on sedation, and on 2 pressors. Still febrile, on IV Abx, X1 set of fungal blood culture ordered. D/w ID recommended to start micafungin 100mg Qday. Hyperkalemic this am, plan for HD today. 04/10: VENICE overnight. Patient remains on the vent and sedated. Afebrile overnight, stress steroids added, pressors requirement is going down. HD overnight 3L out, plan for HD again today. Continue IV Abx and antifungal, F/u on culture data. 04/11: Patient remains on the vent and sedated, on minimal pressors this am. Tachycardic HR in the 130-140s this am. Per RN 4L out in HD yesterday, X1 dose of 25% Albumin given. Bloody drainage with clots also noted from patient nose, mouth, and ETT, Hbg 7 this am. Will hold AC for now, serial H&H ordered, transfuse if Hbg less than 7. 04/12: Patient was able to get HD today, Levaquin was stopped by ID. Consider CT chest/abdomen/pelvis when feasible per ID. Patient remains tachycardic. Was febrile most of the day however temperature decreased with icing and tylenol. 04/13: Patient had a CT chest, abdomen/pelvis with oral contrast and CT head today. Patient received 1 unit PRBC today given down trending of H/H with continual bloody drainage from mouth/nose. Patient will receive hemodialysis today. Patient started on Benadryl every 6, received 1 g of Solu-Medrol x1 for apparent angioedema post CT with contrast. 04/14: family meeting today with Dr. Mcclendon and Bola. Continue supportive care. Thrombocytopenia today and given 1 units platelets. Vasopressors where weaned off overnight but restarted this morning for low maps. Will consider t dayron/peg next week with lower vent settings. 04/15: started taper on steroids, 1 units prbc per hem/onc, holding HD today per nephrology for ST. Still febrile, will reculture today. 04/16: Was able to be titrated off Levophed today. Was taken off vaso overnight and this was restarted today which briefly helped HR which was losw 100s. Weaning fentanyl and Versed as tolerated. HD today. Patient tachy this afternoon. 04/17: 2 units PRBC ordered for today. Still remains on vasopressin. HIT po sitive but anticoagulation withheld due to persistent thrombocytopenia and bleeding. 04/18: Patient able to be weaned off of vasopressors but remains on Versed for sedation. Sinus tachycardia on monitor. Plt and h/h improved. 04/19: Patient on minimal vent settings, peep dropped to 8 by [facility]. Remains on sedation and on low dose Levophed this am. Surgery consulted for possible trach and PEG. Hyperkalemia from this am lab, plan for HD today. H&H and platelets remains stable, will continue to monitor. Assessment and Plan #Neuro: Sedated - Intubated and sedated on fentanyl and versed, RASS -2 to -3 - On Seroquel - PRN EKG for QTC monitoring - Daily SAT and SBT per [facility] - PRN analgesia for CPOT greater than 3 - Maintenance of sleep-wake cycle #CV: Tachycardia, s/p hypertension now with hypotension - Remains ST on the monitor - On low dose pressors this am - Vasopressor support with levophed, vasopressin - Continue blood pressure monitor per protocol - Maintain MAP above 65 - SCDs for VTE proph #Respiratory: Acute hypoxic respiratory failure #asthma exacerbation #COVID-19 pneumonia/ARDS, #RUL PNA #Bronchospasm (resolved) - ETT on 03/14 - Vent setting: AC/PC- 40%,10,30,max PS60 - S/p Bronc on 04/11 which showed alveolar hemorrhage - AM ABG noted - CCM consulted, appreciate recommendations - Continue IV Steroids and Nebs - VAP bundle addressed - Aspiration precaution HOB above 30 - Daily SBT and SAT trials as tolerated - Daily ABG and CXR per CCM - Continue SPO2 monitoring for SPO2 goal above 92% #GI: transaminitis #H/o MO and Crohn's disease -Nutrition consulted, appreciate recommendations -Tube feeding: Nepro at goal -Free water decreased 60 mL every 4 hours -Continue BR: Senokot -Continue PPI #: Acute kidney injury likely secondary to ATN #Hyperkalemia #hyponatremia- resolved - Initial Scr was wnl - Scr as high as 10.8, 5.1 this am - Patient is now anuric - Nephrology consulted, appreciate recommendations - HD initiated 03/15 - K 5.3 this am - Plan for HD again today - Daily weights - Strict intake and output - Avoid nephrotoxic medications; Renally dose medications - Monitor and replace electrolytes as needed #ID:Septic Shock #COVID-19 pneumonia #Leukocytosis - WBcs downtrending, 12.5 this am - Low grade Temp overnight, TMAX 100.8 - Infectious disease consulted, appreciate recommendations - IV Abx course completed -S/p Micafungin started per ID - S/p X1 dose of redemsevir, was D/C due to worsen renal function - S/p X1 dose actemra - Trend COVID-19 inflammatory markers - On Vitamin C/vitamin D/zinc - Daily CBC monitor #Heme: Anemia #Thrombocytopenia #?HUS vs drug reaction #Conjunctival hemorrhage- resolved - s/p plasmapheresis x2 (04/01-04/02) - S/p 10units of PRBCs and 2units of plt - Eliquis restarted on 03/29 - 04/11 Eliquis held, bloody drainage noted from nose, mouth, and ETT - H&H remains stable - Trend CBC - Transfuse hemoglobin less than 7 - SCDs to bilateral lower extremity while in bed - 03/23 BLE duplex US shows no DVT - Repeat BLE doppler negative - 03/22 HIT negative, 04/17 HIT positive #Endo: Hyperglycemia - Hemoglobin A1c 6.3 - SSI Q6hrs - Avoid hypoglycemia - While critically ill target blood glucose of 140-180 The high probability of a clinically significant, sudden or life threatening deterioration of the [multiple] system(s) required my full and direct attention, intervention and personal management. The aggregate critical care time was [60] minutes. This time is in addition to time spent performing reported procedures but includes the following: [x] Data Review and interpretation [x] Patient assessment and monitoring of vital signs [x] Documentation [x] Medication orders and management Disposition Plan: ICU Total Time Spent with Patient (Minutes): 60 History Interval history: Patient is seen and examined at the bedside. Patient remains on the vent and on sedation. On low dose pressors this am with ST, HR in the 120s. Patient still bleeding via nose, mouth, and ETT. H&H remains stable Hospitalist Physical - Constitutional Vitals: Temp Pulse Resp BP Pulse Ox 99.4 F 113 H 32 H 108/61 97 04/19/21 07:34 04/19/21 08:31 04/19/21 08:31 04/19/21 08:30 04/19/21 08:30 General appearance: Present: no acute distress, well-nourished, obese, other (Intubated and sedated) - EENT Eyes: Present: PERRL - Respiratory Respiratory effort: labored, accessory muscle use Respiratory: bilateral: rhonchi, wheezing - Cardiovascular Rhythm: regular Heart Sounds: Present: S1 & S2 - Extremities Extremities: no ischemia, pulses intact, pulses symmetrical Extremity abnormal: edema - Peripheral Assessment Generalized Edema Type: Pitting Edema Degree: 3+ Capillary Refill: < 3 seconds Skin Temperature: Warm Peripheral Pulses: within normal limits - Abdominal General gastrointestinal: soft, non-tender, normal bowel sounds - Integumentary Integumentary: Present: warm, dry - Psychiatric Psychiatric: other (Intubated and sedated) - Neurologic Neurologic: other (Intubated and sedated) - Allied Health Allied health notes reviewed: nursing Results - Labs CBC & Chem 7: 04/19/21 05:00 04/19/21 04:00 Labs: Laboratory Last Values WBC 12.5 K/mm3 (4.5-11.0) H 04/19/21 05:00 RBC 2.79 M/mm3 (3.65-5.03) L 04/19/21 05:00 Hgb 8.6 gm/dl (10.1-14.3) L 04/19/21 05:00 Hct 26.2 % (30.3-42.9) L 04/19/21 05:00 MCV 94 fl (79-97) 04/19/21 05:00 MCH 31 pg (28-32) 04/19/21 05:00 MCHC 33 % (30-34) 04/19/21 05:00 RDW 17.3 % (13.2-15.2) H 04/19/21 05:00 Plt Count 121 K/mm3 (140-440) L 04/19/21 05:00 Lymph % (Auto) 10.7 % (13.4-35.0) L 03/28/21 09:37 Coos % (Auto) 5.2 % (0.0-7.3) 03/28/21 09:37 Eos % (Auto) Pipefitter Helper 04/07/21 03:50 Baso % (Auto) 0.2 % (0.0-1.8) 03/28/21 09:37 Lymph # (Auto) 1.7 K/mm3 (1.2-5.4) 03/28/21 09:37 Coos # (Auto) 0.9 K/mm3 (0.0-0.8) H 03/28/21 09:37 Eos # (Auto) 0.6 K/mm3 (0.0-0.4) H 03/28/21 09:37 Baso # (Auto) 0.0 K/mm3 (0.0-0.1) 03/28/21 09:37 Add Manual Diff Complete 04/17/21 04:42 Total Counted 100 04/17/21 04:42 Seg Neutrophils % 80.0 % (40.0-70.0) H 03/28/21 09:37 Seg Neuts % (Manual) 68.0 % (40.0-70.0) 04/17/21 04:42 Band Neutrophils % 4.0 % 04/17/21 04:42 Lymphocytes % (Manual) 10.0 % (13.4-35.0) L 04/17/21 04:42 Reactive Lymphs % (Man) 2.0 % 04/17/21 04:42 Monocytes % (Manual) 6.0 % (0.0-7.3) 04/17/21 04:42 Eosinophils % (Manual) 3.0 % (0.0-4.3) 04/17/21 04:42 Basophils % (Manual) 2.0 % (0.0-1.8) H 04/03/21 04:30 Metamyelocytes % 6.0 % 04/17/21 04:42 Myelocytes % 1.0 % 04/17/21 04:42 Nucleated RBC % Not Reportable 04/17/21 04:42 Seg Neutrophils # 13.0 K/mm3 (1.8-7.7) H 03/28/21 09:37 Seg Neutrophils # Man 9.6 K/mm3 (1.8-7.7) H 04/17/21 04:42 Band Neutrophils # 0.6 K/mm3 04/17/21 04:42 Lymphocytes # (Manual) 1.4 K/mm3 (1.2-5.4) 04/17/21 04:42 Abs React Lymphs (Man) 0.3 K/mm3 04/17/21 04:42 Monocytes # (Manual) 0.8 K/mm3 (0.0-0.8) 04/17/21 04:42 Eosinophils # (Manual) 0.4 K/mm3 (0.0-0.4) 04/17/21 04:42 Basophils # (Manual) 0.0 K/mm3 (0.0-0.1) 04/17/21 04:42 Metamyelocytes # 0.8 K/mm3 04/17/21 04:42 Myelocytes # 0.1 K/mm3 04/17/21 04:42 Promyelocytes # 0.0 K/mm3 04/17/21 04:42 Blast Cells # 0.0 K/mm3 04/17/21 04:42 WBC Morphology Not Reportable 04/17/21 04:42 Hypersegmented Neuts Not Reportable 04/17/21 04:42 Hyposegmented Neuts Not Reportable 04/17/21 04:42 Hypogranular Neuts Not Reportable 04/17/21 04:42 Smudge Cells Not Reportable 04/17/21 04:42 Toxic Granulation Not Reportable 04/17/21 04:42 Toxic Vacuolation Not Reportable 04/17/21 04:42 Dohle Bodies Not Reportable 04/17/21 04:42 Pelger-Huet Anomaly Not Reportable 04/17/21 04:42 Bridgette Rods Not Reportable 04/17/21 04:42 Platelet Estimate Consistent w auto 04/17/21 04:42 Clumped Platelets Not Reportable 04/17/21 04:42 Plt Clumps, EDTA Not Reportable 04/17/21 04:42 Large Platelets Not Reportable 04/17/21 04:42 Giant Platelets Few 04/17/21 04:42 Platelet Satelliting Not Reportable 04/17/21 04:42 Plt Morphology Comment Not Reportable 04/17/21 04:42 RBC Morphology Not Reportable 04/17/21 04:42 Dimorphic RBCs Not Reportable 04/17/21 04:42 Polychromasia Few 04/17/21 04:42 Hypochromasia Not Reportable 04/17/21 04:42 Poikilocytosis Not Reportable 04/17/21 04:42 Anisocytosis Not Reportable 04/17/21 04:42 Microcytosis Not Reportable 04/17/21 04:42 Macrocytosis Not Reportable 04/17/21 04:42 Spherocytes Few 04/17/21 04:42 Pappenheimer Bodies Not Reportable 04/17/21 04:42 Sickle Cells Not Reportable 04/17/21 04:42 Target Cells Not Reportable 04/17/21 04:42 Tear Drop Cells Not Reportable 04/17/21 04:42 Ovalocytes Not Reportable 04/17/21 04:42 Helmet Cells Not Reportable 04/17/21 04:42 Kebede-Cana Bodies Not Reportable 04/17/21 04:42 [place] Rings Not Reportable 04/17/21 04:42 Balaji Cells Not Reportable 04/17/21 04:42 Bite Cells Not Reportable 04/17/21 04:42 Crenated Cell Not Reportable 04/17/21 04:42 Elliptocytes Not Reportable 04/17/21 04:42 Acanthocytes (Spur) Not Reportable 04/17/21 04:42 Rouleaux Not Reportable 04/17/21 04:42 Hemoglobin C Crystals Not Reportable 04/17/21 04:42 Schistocytes Not Reportable 04/17/21 04:42 Malaria parasites Not Reportable 04/17/21 04:42 Percent Retic 4.52 % (0.78-2.58) H 03/31/21 09:49 Vaibhav Bodies Not Reportable 04/17/21 04:42 Hem Pathologist Commnt No 04/17/21 04:42 PT 17.1 Sec. (12.2-14.9) H 04/17/21 10:58 INR 1.26 (0.87-1.13) H 04/17/21 10:58 APTT 27.5 Sec. (24.2-36.6) 04/17/21 10:58 Fibrinogen 400 mg/dl (211-480) 04/14/21 09:45 D-Dimer 2696.79 ng/mlDDU (0-234) H 04/08/21 04:40 Heparin Anti-Xa, Unfract Negative (Negative) 04/14/21 09:45 ABG pH 7.301 (7.320-7.450) L 04/19/21 03:09 POC ABG pCO2 48.7 mmHg (32.0-48.0) H 04/19/21 03:09 ABG pCO2 68.6 mm Hg 04/13/21 03:52 POC ABG pO2 82.1 mmHg (83-108) L 04/19/21 03:09 ABG pO2 98.9 mm Hg (80.0-90.0) H 04/13/21 03:52 POC ABG HCO3 23.5 04/19/21 03:09 ABG HCO3 25.5 mmol/L (20.0-26.0) 04/13/21 03:52 ABG O2 Saturation 94.9 (0-100) 04/19/21 03:09 ABG O2 Content 10.0 (0.0-44) 04/13/21 03:52 POC ABG Base Excess -2.9 04/19/21 03:09 ABG Base Excess -2.9 mmol/L (-2.0-3.0) L 04/13/21 03:52 ABG Hemoglobin 8.9 (12.0-17.5) L 04/19/21 03:09 ABG Oxyhemoglobin 93.8 (94-98) L 04/19/21 03:09 ABG Carboxyhemoglobin 1.9 % (0.0-5.0) 04/13/21 03:52 ABG Methemoglobin 0.1 (0.0-1.5) 04/19/21 03:09 ABG Sodium 133.9 mmol/L (136.0-145.0) L 04/19/21 03:09 ABG Potassium 5.2 mmol/L (3.40-4.50) H 04/19/21 03:09 ABG Chloride 101.0 mmol/L (98-107) 04/19/21 03:09 ABG Glucose 126 mg/dL (65-95) H 04/19/21 03:09 ABG Lactate Cancelled 04/03/21 20:45 Oxyhemoglobin 94.3 % (95.0-99.0) L 04/13/21 03:52 Carboxyhemoglobin 1.1 (0.5-1.5) 04/19/21 03:09 FiO2 65 % 04/13/21 03:52 FiO2 % 40.0 04/19/21 03:09 Sodium 138 mmol/L (137-145) 04/19/21 04:00 Potassium 5.3 mmol/L (3.6-5.0) H 04/19/21 04:00 Chloride 100.3 mmol/L (98-107) 04/19/21 04:00 Carbon Dioxide 24 mmol/L (22-30) 04/19/21 04:00 Anion Gap 19 mmol/L 04/19/21 04:00 BUN 102 mg/dL (7-17) H 04/19/21 04:00 Creatinine 3.2 mg/dL (0.6-1.2) H 04/19/21 04:00 Estimated GFR 21 ml/min 04/19/21 04:00 BUN/Creatinine Ratio 32 % 04/19/21 04:00 Glucose 116 mg/dL (65-100) H 04/19/21 04:00 POC Glucose 118 mg/dL (70-105) H 04/19/21 04:58 Hemoglobin A1c 6.3 % (4-6) H 03/15/21 05:09 Lactic Acid 0.80 mmol/L (0.7-2.0) 04/07/21 03:50 Calcium 8.2 mg/dL (8.4-10.2) L 04/19/21 04:00 Phosphorus 6.50 mg/dL (2.5-4.5) H 04/18/21 04:55 Magnesium 2.00 mg/dL (1.7-2.3) 04/18/21 04:55 Ferritin 151.6 ng/mL (10.0-200.0) 03/18/21 04:30 Total Bilirubin 0.30 mg/dL (0.1-1.2) 04/17/21 10:58 Bilirubin Cancelled 04/03/21 20:45 AST 29 units/L (5-40) 04/17/21 10:58 ALT 44 units/L (7-56) 04/17/21 10:58 Alkaline Phosphatase 79 units/L (35-129) 04/17/21 10:58 Lactate Dehydrogenase 394 units/L (91-180) H 04/05/21 05:20 C-Reactive Protein 26.10 mg/dL (0.00-1.30) H 04/08/21 04:00 Total Protein 5.7 g/dL (6.3-8.2) L 04/17/21 10:58 Albumin 2.1 g/dL (3.9-5) L 04/17/21 10:58 Albumin/Globulin Ratio 0.6 % 04/17/21 10:58 Triglycerides 406 mg/dL (2-149) H 04/11/21 04:15 Serotonin Release Assay TNR 03/22/21 08:20 Procalcitonin < 0.05 ng/mL (<0.15) 03/13/21 15:40 HCG, Qual Negative (Negative) 03/13/21 13:26 Arterial Blood Glucose 126 mg/dL (65-95) H 04/19/21 03:09 Arterial Blood Ionized Calcium 4.4 mg/dL (4.6-5.3) L 04/18/21 00:08 Urine Color Sweta (Yellow) 04/15/21 18:35 Urine Turbidity Cloudy (Clear) 04/15/21 18:35 Urine pH 5.0 (5.0-7.0) 04/15/21 18:35 Ur Specific Bath 1.025 (1.003-1.030) 04/15/21 18:35 Urine Protein >500 mg/dL (Negative) 04/15/21 18:35 Urine Glucose (UA) Neg mg/dL (Negative) 04/15/21 18:35 Urine Ketones Neg mg/dL (Negative) 04/15/21 18:35 Urine Blood Mod (Negative) 04/15/21 18:35 Urine Nitrite Neg (Negative) 04/15/21 18:35 Urine Bilirubin Neg (Negative) 04/15/21 18:35 Urine Urobilinogen < 2.0 mg/dL (<2.0) 04/15/21 18:35 Ur Leukocyte Esterase Mod (Negative) 04/15/21 18:35 Urine WBC (Auto) 156.0 /HPF (0.0-6.0) H 04/15/21 18:35 Urine RBC (Auto) 56.0 /HPF (0.0-6.0) 04/15/21 18:35 U Epithel Cells (Auto) 15.0 /HPF (0-13.0) H 04/15/21 18:35 Urine Bacteria (Auto) 2+ /HPF (Negative) 04/15/21 18:35 Urine WBC Clumps 3+ /HPF 04/15/21 18:35 Ur Renal Epithelial Cell 151 /LPF 04/06/21 Unknown Urine Mucus Few /HPF 04/15/21 18:35 Urine Yeast (Budding) 3+ /HPF 04/15/21 18:35 Urine Creatinine 40.1 mg/dL (0.1-20.0) H 03/14/21 17:50 Urine Sodium 124 mmol/L 03/14/21 17:50 Random Vancomycin 11.9 ug/mL (0-40.0) 04/15/21 07:05 KIMBERLEY Screen Negative (Negative) 04/07/21 08:27 Heparin-induced Plt Ab Positive (Negative) H 04/14/21 09:45 UF Heparin High Dose 0 % Release 04/14/21 09:45 JUAN UFH Low Dose 0.1 1 % Release 04/14/21 09:45 JUAN UFH Low Dose 0.5 0 % Release 04/14/21 09:45 Coronavirus (PCR) Negative (Negative) 04/04/21 09:00 Hepatitis A IgM Ab Non-reactive (NonReactive) 03/15/21 05:09 Hep Bs Antigen Nonreactive (Negative) 03/15/21 05:09 Hep B Core IgM Ab Non-reactive (NonReactive) 03/15/21 05:09 Hepatitis C Antibody Non-reactive (NonReactive) 03/15/21 05:09 Schistocytes Smear None seen 03/31/21 12:11 Blood Type O POSITIVE 04/15/21 12:10 Antibody Screen Positive 04/15/21 12:10 Antibody Identification Anti-E 04/15/21 12:10 Direct Antiglob Test Negative 03/31/21 23:18 NIKOLE, Poly Interpret Negative 03/31/21 23:18 Crossmatch See Detail 04/15/21 12:10 Microbiology: Microbiology 04/15/21 Unknown Urine,Catheterized - Straight Catheter Urine Culture - Final NO GROWTH AFTER 48 HOURS 04/15/21 11:19 Peripheral/Venous Blood Culture - Preliminary NO GROWTH AFTER 72 HOURS 04/15/21 11:16 Peripheral/Venous Blood Culture - Preliminary NO GROWTH AFTER 72 HOURS Bazan/IV: Voiding Method Incontinent Active Medications - Current Medications Current Medications: Generic Name Dose Route Start Last Admin Trade Name Freq PRN Reason Stop Dose Admin Acetaminophen 650 mg 03/31/21 12:41 04/19/21 05:37 Acetaminophen 325 Mg/10.15 Ml Oral Liqd Unit Dose FEEDTUBE 650 mg Q6H PRN Administration TEMP >/=100.4 Albumin Human 25 gm 04/01/21 08:19 04/01/21 16:23 Albumin Human 25% (25 Gm/100 Ml) Inj IV 25 gm KARLOS PRN Administration Hypotension Albuterol 2.5 mg 03/19/21 00:53 Albuterol 2.5 Mg/3 Ml Nebu IH Q4HRT PRN Shortness Of Breath Albuterol/Ipratropium 1 ampul 03/19/21 08:00 04/19/21 08:31 Ipratropium/Albuterol Sulfate 3 Ml Ampul.Neb IH 1 ampul Q6HRT INESSA Administration Lipase/Protease/Amylase 1 each 04/09/21 17:17 Lipase 10,500/Protease 25,000/Amylase 43,750 (Units) Cap FEEDTUBE PRN PRN For Clogged Feeding Tube Calcium Acetate 1,334 mg 04/03/21 20:00 04/19/21 10:52 Calcium Acetate 667 Mg Cap FEEDTUBE 1,334 mg TID INESSA Administration Dextrose 50 ml 03/14/21 11:02 03/15/21 11:40 Dextrose 50% In Water (25gm) 50 Ml Syringe IV 50 ml Q30MIN PRN Administration Hypoglycemia Protocol Famotidine 10 mg 03/17/21 22:00 04/18/21 21:19 Famotidine 10 Mg Tab PO 10 mg BID INESSA Administration Fentanyl 50 mcg 04/15/21 11:48 04/18/21 18:58 Fentanyl 100 Mcg/2 Ml Inj IV 50 mcg Q10MIN PRN Administration ANALGESIA Hydrocortisone Sodium Succinate 50 mg 04/18/21 10:00 04/18/21 21:19 Hydrocortisone Sod Succ 100 Mg/2 Ml Vial IV 04/21/21 22:01 50 mg Q12H INESSA Administration Hydrocortisone Sodium Succinate 25 mg 04/22/21 10:00 Hydrocortisone Sod Succ 100 Mg/2 Ml Vial IV 04/25/21 09:59 QDAY INESSA Hydrophilic Ointment 1 applic 03/14/21 17:50 04/18/21 19:02 Lip Therapy Vaseline TP 1 applic Q2HR PRN Administration Dry Lips Hydrophilic Ointment 1 applic 04/15/21 13:00 04/19/21 10:49 Aquaphor Ointment TP 1 applic Q12HR INESSA Administration Midazolam HCl 100 mg/ Sodium 100 mls @ 1 mls/hr 03/30/21 15:00 04/19/21 05:32 Chloride IV 7 mg/hr TITR INESSA 7 mls/hr Administration Protocol 1 MG/HR Vasopressin 20 unit/ Sodium 101 mls @ 9.09 mls/hr 03/30/21 20:00 04/18/21 02:04 Chloride IV 0.03 units/min TITR INESSA 9.09 mls/hr Administration 0.03 UNITS/MIN Phenylephrine HCl 100 mg/ 100 mls @ 3 mls/hr 03/31/21 04:00 04/06/21 07:58 Sodium Chloride IV 0 mcg/min TITR INESSA 0 mls/hr Titration Protocol 50 MCG/MIN Propofol 1,000 mg in 100 mls @ 4.26 mls/hr 04/07/21 13:00 04/12/21 12:52 Diprivan 10 Mg/Ml IV 0 mcg/kg/min TITR INESSA 0 mls/hr Titration Protocol 5 MCG/KG/MIN Sodium Chloride 1,000 mls @ 1 mls/hr 04/14/21 16:45 04/14/21 16:57 Nacl 0.9% 1000 Ml IV 1 mls/hr DIRECT INESSA Administration NORepinephrine/NS 8 MG-250 ML 8 mg in 250 mls @ 3.75 mls/hr 04/15/21 12:00 04/19/21 08:20 Norepinephrine/Ns 8 Mg-250 Ml (Double Conc) IV 3 mcg/min TITRATE INESSA 5.625 mls/hr Titration Protocol 2 MCG/MIN Fentanyl Citrate 2,000 mcg in 100 mls @ 7.1 mls/hr 04/15/21 13:00 04/19/21 10:18 Fentanyl Drip Premix IV 4 mcg/kg/hr TITR INESSA 28.4 mls/hr Administration Protocol 1 MCG/KG/HR Sodium Chloride 100 mls @ 999 mls/hr 04/18/21 14:26 Nacl 0.9% IV KARLOS PRN Hypotension Insulin Human Lispro 0 unit 03/14/21 12:00 04/19/21 07:27 Insulin Lispro 100 Unit/Ml SUB-Q Not Given Q6HR [facility] Protocol Lorazepam 1 mg 03/13/21 19:40 04/18/21 18:58 Lorazepam 2 Mg/Ml Vial IV 1 mg Q4H PRN Administration Anxiety Multi-Ingred Cream/Lotion/Oil/Oint 1 applic 03/14/21 17:50 04/16/21 23:02 Mineral Oil/Petrolatum, White Ophth Oint 3.5 Gm OU 1 applic Q4HR PRN Administration Dry Eye(s) Ondansetron HCl 4 mg 03/13/21 19:30 03/21/21 12:05 Ondansetron 4 Mg/2 Ml Inj IV 4 mg Q8H PRN Administration Nausea And Vomiting Quetiapine Fumarate 300 mg 04/06/21 22:00 04/19/21 10:48 Quetiapine 100 Mg Tab PO 300 mg BID INESSA Administration Senna/Docusate Sodium 1 tab 03/14/21 22:00 04/19/21 10:48 Sennosides/Docusate Sodium 8.6/50 Mg Tab FEEDTUBE 1 tab BID INESSA Administration Simple Syrup 15 ml 04/09/21 17:17 Simple Syrup 15 Ml FEEDTUBE PRN PRN Hypoglycemia Simple Syrup 30 ml 04/09/21 17:17 Simple Syrup 15 Ml FEEDTUBE PRN PRN Hypoglycemia Sodium Bicarbonate 325 mg 04/09/21 17:17 Sodium Bicarbonate 325 Mg Tab FEEDTUBE PRN PRN For Clogged Feeding Tube Sodium Chloride 10 ml 03/13/21 22:00 04/19/21 10:53 Sodium Chloride 0.9% 10 Ml Flush Syringe IV 10 ml BID INESSA Administration Sodium Chloride 10 ml 03/13/21 19:30 04/17/21 05:34 Sodium Chloride 0.9% 10 Ml Flush Syringe IV 10 ml PRN PRN Administration LINE FLUSH Nutrition/Malnutrition Assess - Dietary Evaluation Nutrition/Malnutrition Findings: Nutrition Notes Start: 03/15/21 11:06 Freq: Status: Active Protocol: Document 04/17/21 13:12 CW (Rec: 04/17/21 13:25 CW [id number]) Nutrition Notes Initial or Follow up Reassessment Current Diagnosis Acute Kidney Injury, Hypertension,Respiratory Failure Other Pertinent Diagnosis pneu, Covid 19 Current Diet TF -Glucerna 1.2 Abdullahi (since L 04/14). Labs/Tests K 5.9 bun 112 k 3.6 BG 174 Pertinent Medications Senna Phoslo Solu cortef Height 5 ft 5 in Weight 142 kg [place] Body Weight (kg) 56.81 BMI 52.0 Weight change and time frame Drastic weight increase. Likely inaccurate. Recommend reweight. Subjective/Other Information Kitchen reports not out of Nepro. Will replace Nepro order. RN reports taht NGT placement needs to be verified . Recommend restart TF when medically feasible. RN reports unable to conduct reweight d/ t lack of bed scale. Will base TF off of UBW and adjust accordingly. Percent of energy/protein needs met: 0%/0% Burn Absent Trauma Absent GI Symptoms None Food Allergy No Skin Integrity/Comment Intact Current % PO Negligible Minimum of two criteria No physical signs of malnutrition #1 Nutrition Diagnosis Swallowing difficulty Etiology respiratory failure As Evidenced by Signs and Symptoms Pt on mechancial vent Diagnosis Progress(for reassessment Continues documentation) Is patient on ventilator? Yes Is Patient Ambulatory and/or Out of Bed No REE-([facility]-confined to bed) 2570.232 Kcal/Kg value to use for calculation 14 Approximate Energy Requirements Using 1988 kcal/Kg Calculation Used for Recommendations Kcal/kg Additional Notes protein need: up to 142 fluid needs: 1.5 L or per MD order Nutrition Intervention Change Diet Order: Continue TF when medically feasible Nutrition Support: Nepro at 46 with a free water flush of 120 ml q4h Kcal 1,944 Protein (gm) 88 Fluid (mL) 785 Goal #1 TF tolerance Goal #2 Meet at least 75% of EER via TF Follow-Up By: 04/19/21 Additional Comments F/U fo TF restart and toelrance
[2021-04-19] MEDS: FAMOTIDINE 10 MG TAB PO SCH ×2 (13:25→21:19)
[2021-04-19] MEDS: HYDROCORTISONE SOD SUCC 100 MG/2 ML VIAL IV SCH ×2 (13:33→21:26)
--- NOTE | 2021-04-19 13:36 | Progress Note ---
Assessment and Plan Acute hypoxemic respiratory failure Acute asthma exacerbation Morbid obesity Crohn's disease Metabolic acidosis Acute kidney injury Coronavirus infection Pneumonia (CAP) Oropharyngeal dysphagia Obesity, if not mentioned above (Padmini will need a tracheostomy once more stable; also discussed care plan extensively with her mother and siblings yesterday re-iterating the gravity of her illness in family conference) - reduced peep to 8 cm H2O - Surgery consult placed for trach and PEG - Kayexalate 15 gms p.o. X 1 now re: hyperkalemia - hopefully HD/UF in am - continue weaning stress dose steroids - repeat ABG in am - continue care as below otherwise; - HD/UF per nephrology prescription for toxin and volume clearance - wean vasopressors for target MAP > 65 mmHg - nephrology input appreciated; HD/UF for toxin and volume clearance - continue Daily SAT and SBT assessment as tolerated - continue to wean supplemental oxygen for target O2 sat's > 90% acutely - VAP bundle addressed - continue lung protective strategies - continue bronchodilators with pulmonary hygiene per RT - wean per pulmonary driven protocols otherwise - continue accuchecks with glycemic control per SSI (While critically ill target blood glucose of 140-180 mg/dL; avoid hypoglycemia) - sedation prn for target RASS 0 to -1 - avoid nephrotoxins, renally dose all medications - continue to avoid benzodiazepine's, reduce the possibility of delirium - de-escalate AB's per ID rec's - prn analgesia per CPOT score - Maintenance of sleep-wake cycle, avoid delirium - continue enteral nutritional support at goal rate as tolerated - G.I. & VTE prophylaxis - PT/OT/ROM exercises - continue mobility protocols for pressure ulcer prophylaxis - Monitor hemodynamics closely - continue other care per attending / other consultants - discharge planning ongoing concurrently COVID SPECIFIC INTERVENTIONS - Isolation discontinued - s/p Actemra - Remdesivir as per ID/Pulmonary developed protocols (not a candidate) - continue systemic steroids for severe COVID-19 infection empirically - repeat COVID tests result negative - zinc and vitamin C supplementation - Monitor inflammatory markers per facility protocol - ferritin, Ddimer, CRP - therapeutic anticoagulation per system Protocol based on d-dimer and clinical considerations (VTE prophylaxis) - Continue contact and airborne isolation .... Re-evaluate in am & prn CONDITION: CRITICAL PROGNOSIS: GUARDED CODE STATUS: FULL CODE The high probability of a clinically significant, sudden or life-threatening deterioration of the [respiratory, cardiovascular, renal & neurologic] system(s) required my full and direct attention, intervention and personal management. The aggregate critical care time was [32] minutes without overlap. Time includes spent on; [x] Data Review and interpretation [x] Patient assessment and monitoring of vital signs [x] Documentation [x] Medication orders and management Subjective Date of service: 04/19/21 Principal diagnosis: Ac hypoxemic resp failure; AE-Asthma; SAI; Crohn's; COVID- 19; Pneumonia Interval history: Patient is seen today for: Acute hypoxemic respiratory failure; AE-Asthma; SAI; Crohn's disease; COVID-19 infection; Pneumonia (CAP) Seen and examined at bedside; 24hour events reviewed; nursing and respiratory c are staff consulted; no adverse overnight events reported to me; resting in bed; remains on MVS; doing better hemodynamically and FiO2 down to 40% with peep at 10 cm H2O; vasopressor requirements overall reduced; remains dialysis dependent Objective Vital Signs - 12hr 04/19/21 04/19/21 04/19/21 01:46 02:00 02:16 Temperature Pulse Rate 108 H 119 H 115 H Pulse Rate [ Anterior Bilateral Throughout] Pulse Rate [ From Monitor] Respiratory 9 L 13 12 Rate Respiratory Rate [Anterior Bilateral Throughout] Blood Pressure O2 Sat by Pulse 100 100 100 Oximetry 04/19/21 04/19/21 04/19/21 02:30 02:40 02:46 Temperature Pulse Rate 118 H 117 H Pulse Rate [ 119 H Anterior Bilateral Throughout] Pulse Rate [ From Monitor] Respiratory 13 13 Rate Respiratory 30 H Rate [Anterior Bilateral Throughout] Blood Pressure O2 Sat by Pulse 100 100 Oximetry 04/19/21 04/19/21 04/19/21 03:00 03:16 03:30 Temperature Pulse Rate 118 H 119 H 118 H Pulse Rate [ Anterior Bilateral Throughout] Pulse Rate [ From Monitor] Respiratory 13 15 13 Rate Respiratory Rate [Anterior Bilateral Throughout] Blood Pressure O2 Sat by Pulse 100 100 98 Oximetry 04/19/21 04/19/21 04/19/21 03:46 04:00 04:08 Temperature 100.2 F H Pulse Rate 118 H 122 H 119 H Pulse Rate [ Anterior Bilateral Throughout] Pulse Rate [ 124 H From Monitor] Respiratory 14 15 4 L Rate Respiratory Rate [Anterior Bilateral Throughout] Blood Pressure 129/65 O2 Sat by Pulse 100 98 97 Oximetry 04/19/21 04/19/21 04/19/21 04:16 04:30 04:46 Temperature Pulse Rate 117 H 126 H 127 H Pulse Rate [ Anterior Bilateral Throughout] Pulse Rate [ From Monitor] Respiratory 12 15 16 Rate Respiratory Rate [Anterior Bilateral Throughout] Blood Pressure O2 Sat by Pulse 99 100 96 Oximetry 04/19/21 04/19/21 04/19/21 05:00 05:16 05:30 Temperature Pulse Rate 126 H 126 H 126 H Pulse Rate [ Anterior Bilateral Throughout] Pulse Rate [ From Monitor] Respiratory 14 16 15 Rate Respiratory Rate [Anterior Bilateral Throughout] Blood Pressure O2 Sat by Pulse 97 97 98 Oximetry 04/19/21 04/19/21 04/19/21 05:46 06:00 06:16 Temperature Pulse Rate 130 H 126 H 123 H Pulse Rate [ Anterior Bilateral Throughout] Pulse Rate [ From Monitor] Respiratory 15 15 12 Rate Respiratory Rate [Anterior Bilateral Throughout] Blood Pressure O2 Sat by Pulse 98 97 96 Oximetry 04/19/21 04/19/21 04/19/21 06:30 06:46 07:00 Temperature Pulse Rate 123 H 123 H 120 H Pulse Rate [ Anterior Bilateral Throughout] Pulse Rate [ From Monitor] Respiratory 12 14 12 Rate Respiratory Rate [Anterior Bilateral Throughout] Blood Pressure O2 Sat by Pulse 96 96 97 Oximetry 04/19/21 04/19/21 04/19/21 07:16 07:30 07:34 Temperature 99.4 F Pulse Rate 120 H 111 H Pulse Rate [ Anterior Bilateral Throughout] Pulse Rate [ From Monitor] Respiratory 13 10 L Rate Respiratory Rate [Anterior Bilateral Throughout] Blood Pressure O2 Sat by Pulse 97 97 Oximetry 04/19/21 04/19/21 04/19/21 07:46 08:00 08:16 Temperature Pulse Rate 116 H 116 H 114 H Pulse Rate [ Anterior Bilateral Throughout] Pulse Rate [ From Monitor] Respiratory 15 13 16 Rate Respiratory Rate [Anterior Bilateral Throughout] Blood Pressure O2 Sat by Pulse 96 95 94 Oximetry 04/19/21 04/19/21 04/19/21 08:30 08:31 08:46 Temperature Pulse Rate 111 H 112 H Pulse Rate [ 113 H Anterior Bilateral Throughout] Pulse Rate [ From Monitor] Respiratory 11 L 10 L Rate Respiratory 32 H Rate [Anterior Bilateral Throughout] Blood Pressure 108/61 O2 Sat by Pulse 97 96 Oximetry 04/19/21 04/19/21 04/19/21 09:00 09:16 09:30 Temperature Pulse Rate 120 H 112 H 110 H Pulse Rate [ Anterior Bilateral Throughout] Pulse Rate [ From Monitor] Respiratory 21 13 11 L Rate Respiratory Rate [Anterior Bilateral Throughout] Blood Pressure O2 Sat by Pulse 97 100 97 Oximetry 04/19/21 04/19/21 04/19/21 09:46 10:00 10:16 Temperature Pulse Rate 114 H 119 H 131 H Pulse Rate [ Anterior Bilateral Throughout] Pulse Rate [ From Monitor] Respiratory 14 17 26 H Rate Respiratory Rate [Anterior Bilateral Throughout] Blood Pressure O2 Sat by Pulse 99 100 93 Oximetry 04/19/21 04/19/21 04/19/21 10:30 10:46 11:00 Temperature Pulse Rate 133 H 144 H 136 H Pulse Rate [ Anterior Bilateral Throughout] Pulse Rate [ From Monitor] Respiratory 24 28 H 19 Rate Respiratory Rate [Anterior Bilateral Throughout] Blood Pressure O2 Sat by Pulse 98 75 L 94 Oximetry 04/19/21 04/19/21 04/19/21 11:16 11:30 11:46 Temperature Pulse Rate 138 H 135 H 135 H Pulse Rate [ Anterior Bilateral Throughout] Pulse Rate [ From Monitor] Respiratory 17 14 16 Rate Respiratory Rate [Anterior Bilateral Throughout] Blood Pressure O2 Sat by Pulse 96 98 97 Oximetry 04/19/21 04/19/21 12:11 12:42 Temperature 100.2 F H Pulse Rate 131 H Pulse Rate [ Anterior Bilateral Throughout] Pulse Rate [ From Monitor] Respiratory Rate Respiratory Rate [Anterior Bilateral Throughout] Blood Pressure 128/54 O2 Sat by Pulse 100 Oximetry Constitutional: no acute distress, other (morbidly obese female with mild ventilator dyssynchrony) Eyes: non-icteric, other (scleral erythema improved) ENT: oropharynx moist, oropharyngeal exudate pre (serosanguinous), other (ETT 25 cm BALJINDER) Neck: supple, no lymphadenopathy, no JVD, other (large circumference) Effort: mildly labored Ascultation: Bilateral: diminished breath sounds, rhonchi Percussion: Bilateral: not dull Cardiovascular: regular rate and rhythm Gastrointestinal: normoactive bowel sounds, soft, non-tender, non-distended (protuberant) Integumentary: rash (now scaling / drying), other Extremities: no cyanosis, pulses normal, no ischemia or petechiae, edema (1+) Neurologic: pupils equal and round, CN II-XII normal, other (unasble to assess re: AMS) Psychiatric: other (unasble to assess) CBC and BMP: 04/20/21 04:30 04/20/21 04:30 ABG, PT/INR, D-dimer: ABG ABG pH 7.301 (7.320-7.450) L 04/19/21 03:09 POC ABG pCO2 48.7 mmHg (32.0-48.0) H 04/19/21 03:09 ABG pCO2 68.6 mm Hg 04/13/21 03:52 POC ABG pO2 82.1 mmHg (83-108) L 04/19/21 03:09 ABG pO2 98.9 mm Hg (80.0-90.0) H 04/13/21 03:52 POC ABG HCO3 23.5 04/19/21 03:09 ABG O2 Saturation 94.9 (0-100) 04/19/21 03:09 PT/INR, D-dimer PT 17.1 Sec. (12.2-14.9) H 04/17/21 10:58 INR 1.26 (0.87-1.13) H 04/17/21 10:58 D-Dimer 2696.79 ng/mlDDU (0-234) H 04/08/21 04:40 Abnormal lab findings: Abnormal Labs 03/13/21 03/13/21 03/13/21 13:26 13:26 15:40 WBC RBC Hgb Hct MCH 27 L MCHC RDW 17.0 H Plt Count Lymph % (Auto) [place] # (Auto) Eos # (Auto) Seg Neutrophils % Lymphocytes % (Manual) Eosinophils % (Manual) Basophils % (Manual) Nucleated RBC % Seg Neutrophils # Seg Neutrophils # Man Lymphocytes # (Manual) Monocytes # (Manual) Eosinophils # (Manual) Basophils # (Manual) Percent Retic PT INR Fibrinogen D-Dimer ABG pH POC ABG pCO2 POC ABG pO2 ABG pO2 ABG HCO3 ABG O2 Saturation ABG Base Excess ABG Hemoglobin ABG Oxyhemoglobin ABG Sodium ABG Potassium ABG Chloride ABG Glucose Oxyhemoglobin Carboxyhemoglobin Sodium 136 L Potassium Chloride Carbon Dioxide BUN Creatinine Glucose 125 H 130 H POC Glucose Hemoglobin A1c Calcium Phosphorus Magnesium AST ALT Alkaline Phosphatase Lactate Dehydrogenase 235 H C-Reactive Protein 4.30 H Total Protein Albumin Triglycerides Arterial Blood Glucose Arterial Blood Ionized Calcium Urine WBC (Auto) U Epithel Cells (Auto) Urine Creatinine Random Vancomycin Heparin-induced Plt Ab Coronavirus (PCR) Crossmatch 03/13/21 03/14/21 03/14/21 21:33 03:35 06:21 WBC 20.0 H RBC Hgb Hct MCH 27 L MCHC RDW 17.5 H Plt Count Lymph % (Auto) 7.8 L [place] # (Auto) 1.3 H Eos # (Auto) Seg Neutrophils % 85.4 H Lymphocytes % (Manual) Eosinophils % (Manual) Basophils % (Manual) Nucleated RBC % Seg Neutrophils # 17.1 H Seg Neutrophils # Man Lymphocytes # (Manual) Monocytes # (Manual) Eosinophils # (Manual) Basophils # (Manual) Percent Retic PT INR Fibrinogen D-Dimer ABG pH 7.323 L 7.234 L POC ABG pCO2 POC ABG pO2 ABG pO2 69.8 L ABG HCO3 ABG O2 Saturation 92.9 L 94.9 L ABG Base Excess -3.3 L -5.4 L ABG Hemoglobin ABG Oxyhemoglobin ABG Sodium ABG Potassium ABG Chloride ABG Glucose Oxyhemoglobin 91.2 L 93.2 L Carboxyhemoglobin Sodium Potassium Chloride Carbon Dioxide BUN Creatinine Glucose POC Glucose Hemoglobin A1c Calcium Phosphorus Magnesium AST ALT Alkaline Phosphatase Lactate Dehydrogenase C-Reactive Protein Total Protein Albumin Triglycerides Arterial Blood Glucose Arterial Blood Ionized Calcium Urine WBC (Auto) U Epithel Cells (Auto) Urine Creatinine Random Vancomycin Heparin-induced Plt Ab Coronavirus (PCR) Crossmatch 03/14/21 03/14/21 03/14/21 06:21 07:47 11:21 WBC RBC Hgb Hct MCH MCHC RDW Plt Count Lymph % (Auto) [place] # (Auto) Eos # (Auto) Seg Neutrophils % Lymphocytes % (Manual) Eosinophils % (Manual) Basophils % (Manual) Nucleated RBC % Seg Neutrophils # Seg Neutrophils # Man Lymphocytes # (Manual) Monocytes # (Manual) Eosinophils # (Manual) Basophils # (Manual) Percent Retic PT INR Fibrinogen D-Dimer ABG pH POC ABG pCO2 POC ABG pO2 ABG pO2 ABG HCO3 ABG O2 Saturation ABG Base Excess ABG Hemoglobin ABG Oxyhemoglobin ABG Sodium ABG Potassium ABG Chloride ABG Glucose Oxyhemoglobin Carboxyhemoglobin Sodium 136 L 136 L Potassium 6.2 H* D 5.4 H Chloride Carbon Dioxide 21 L 21 L BUN Creatinine 1.5 H D 1.8 H Glucose 144 H 141 H POC Glucose 147 H Hemoglobin A1c Calcium Phosphorus Magnesium AST ALT Alkaline Phosphatase Lactate Dehydrogenase C-Reactive Protein Total Protein 8.7 H 9.2 H Albumin 3.8 L Triglycerides Arterial Blood Glucose Arterial Blood Ionized Calcium Urine WBC (Auto) U Epithel Cells (Auto) Urine Creatinine Random Vancomycin Heparin-induced Plt Ab Coronavirus (PCR) Crossmatch 03/14/21 03/14/21 03/14/21 17:29 17:50 18:35 WBC RBC Hgb Hct MCH MCHC RDW Plt Count Lymph % (Auto) [place] # (Auto) Eos # (Auto) Seg Neutrophils % Lymphocytes % (Manual) Eosinophils % (Manual) Basophils % (Manual) Nucleated RBC % Seg Neutrophils # Seg Neutrophils # Man Lymphocytes # (Manual) Monocytes # (Manual) Eosinophils # (Manual) Basophils # (Manual) Percent Retic PT INR Fibrinogen D-Dimer ABG pH POC ABG pCO2 POC ABG pO2 ABG pO2 ABG HCO3 ABG O2 Saturation ABG Base Excess ABG Hemoglobin ABG Oxyhemoglobin ABG Sodium ABG Potassium ABG Chloride ABG Glucose Oxyhemoglobin Carboxyhemoglobin Sodium 135 L Potassium 6.4 H* Chloride Carbon Dioxide 15 L BUN 26 H Creatinine 3.4 H D Glucose 165 H POC Glucose 209 H Hemoglobin A1c Calcium Phosphorus Magnesium AST ALT Alkaline Phosphatase Lactate Dehydrogenase C-Reactive Protein Total Protein Albumin Triglycerides Arterial Blood Glucose Arterial Blood Ionized Calcium Urine WBC (Auto) U Epithel Cells (Auto) Urine Creatinine 40.1 H Random Vancomycin Heparin-induced Plt Ab Coronavirus (PCR) Crossmatch 03/14/21 03/14/21 03/14/21 18:46 22:23 23:52 WBC RBC Hgb Hct MCH MCHC RDW Plt Count Lymph % (Auto) [place] # (Auto) Eos # (Auto) Seg Neutrophils % Lymphocytes % (Manual) Eosinophils % (Manual) Basophils % (Manual) Nucleated RBC % Seg Neutrophils # Seg Neutrophils # Man Lymphocytes # (Manual) Monocytes # (Manual) Eosinophils # (Manual) Basophils # (Manual) Percent Retic PT INR Fibrinogen D-Dimer ABG pH 7.270 L POC ABG pCO2 POC ABG pO2 63.4 L ABG pO2 ABG HCO3 ABG O2 Saturation ABG Base Excess ABG Hemoglobin ABG Oxyhemoglobin 90.2 L ABG Sodium 134.9 L ABG Potassium 5.3 H ABG Chloride ABG Glucose 134 H Oxyhemoglobin Carboxyhemoglobin Sodium 136 L Potassium 5.2 H Chloride Carbon Dioxide 20 L BUN 29 H Creatinine 3.6 H Glucose 236 H POC Glucose 128 H Hemoglobin A1c Calcium Phosphorus Magnesium AST ALT Alkaline Phosphatase Lactate Dehydrogenase C-Reactive Protein Total Protein Albumin 3.2 L Triglycerides Arterial Blood Glucose 134 H Arterial Blood Ionized Calcium Urine WBC (Auto) U Epithel Cells (Auto) Urine Creatinine Random Vancomycin Heparin-induced Plt Ab Coronavirus (PCR) Crossmatch 03/14/21 03/15/21 03/15/21 Unknown 05:00 05:09 WBC 22.5 H RBC Hgb Hct MCH 27 L MCHC RDW 17.6 H Plt Count Lymph % (Auto) [place] # (Auto) Eos # (Auto) Seg Neutrophils % Lymphocytes % (Manual) Eosinophils % (Manual) Basophils % (Manual) Nucleated RBC % Seg Neutrophils # Seg Neutrophils # Man Lymphocytes # (Manual) Monocytes # (Manual) Eosinophils # (Manual) Basophils # (Manual) Percent Retic PT INR Fibrinogen D-Dimer ABG pH POC ABG pCO2 POC ABG pO2 ABG pO2 ABG HCO3 ABG O2 Saturation ABG Base Excess ABG Hemoglobin ABG Oxyhemoglobin ABG Sodium ABG Potassium ABG Chloride ABG Glucose Oxyhemoglobin Carboxyhemoglobin Sodium Potassium Chloride Carbon Dioxide BUN Creatinine Glucose POC Glucose 116 H Hemoglobin A1c Calcium Phosphorus Magnesium AST ALT Alkaline Phosphatase Lactate Dehydrogenase C-Reactive Protein Total Protein Albumin Triglycerides Arterial Blood Glucose Arterial Blood Ionized Calcium Urine WBC (Auto) U Epithel Cells (Auto) Urine Creatinine Random Vancomycin Heparin-induced Plt Ab Coronavirus (PCR) Positive A Crossmatch 03/15/21 03/15/21 03/15/21 05:09 05:09 05:09 WBC RBC Hgb Hct MCH MCHC RDW Plt Count Lymph % (Auto) [place] # (Auto) Eos # (Auto) Seg Neutrophils % Lymphocytes % (Manual) Eosinophils % (Manual) Basophils % (Manual) Nucleated RBC % Seg Neutrophils # Seg Neutrophils # Man Lymphocytes # (Manual) Monocytes # (Manual) Eosinophils # (Manual) Basophils # (Manual) Percent Retic PT INR Fibrinogen D-Dimer ABG pH POC ABG pCO2 POC ABG pO2 ABG pO2 ABG HCO3 ABG O2 Saturation ABG Base Excess ABG Hemoglobin ABG Oxyhemoglobin ABG Sodium ABG Potassium ABG Chloride ABG Glucose Oxyhemoglobin Carboxyhemoglobin Sodium 136 L Potassium 6.5 H* D Chloride Carbon Dioxide 17 L BUN 41 H Creatinine 5.3 H Glucose 128 H POC Glucose Hemoglobin A1c 6.3 H Calcium Phosphorus Magnesium AST ALT Alkaline Phosphatase Lactate Dehydrogenase C-Reactive Protein 12.10 H Total Protein Albumin 3.1 L Triglycerides Arterial Blood Glucose Arterial Blood Ionized Calcium Urine WBC (Auto) U Epithel Cells (Auto) Urine Creatinine Random Vancomycin Heparin-induced Plt Ab Coronavirus (PCR) Crossmatch 03/15/21 03/15/21 03/15/21 10:00 21:50 23:39 WBC RBC Hgb Hct MCH MCHC RDW Plt Count Lymph % (Auto) [place] # (Auto) Eos # (Auto) Seg Neutrophils % Lymphocytes % (Manual) Eosinophils % (Manual) Basophils % (Manual) Nucleated RBC % Seg Neutrophils # Seg Neutrophils # Man Lymphocytes # (Manual) Monocytes # (Manual) Eosinophils # (Manual) Basophils # (Manual) Percent Retic PT INR Fibrinogen D-Dimer ABG pH 7.098 L POC ABG pCO2 72.7 H POC ABG pO2 ABG pO2 162.5 H ABG HCO3 ABG O2 Saturation ABG Base Excess ABG Hemoglobin 10.1 L ABG Oxyhemoglobin ABG Sodium ABG Potassium 5.7 H ABG Chloride ABG Glucose Oxyhemoglobin Carboxyhemoglobin 0.4 L Sodium Potassium Chloride Carbon Dioxide BUN Creatinine Glucose POC Glucose 156 H Hemoglobin A1c Calcium Phosphorus Magnesium AST ALT Alkaline Phosphatase Lactate Dehydrogenase C-Reactive Protein Total Protein Albumin Triglycerides Arterial Blood Glucose Arterial Blood Ionized Calcium Urine WBC (Auto) U Epithel Cells (Auto) Urine Creatinine Random Vancomycin Heparin-induced Plt Ab Coronavirus (PCR) Crossmatch 03/16/21 03/16/21 03/16/21 05:00 05:30 05:30 WBC 16.7 H RBC 3.59 L Hgb 9.6 L Hct 30.1 L MCH 27 L MCHC RDW 17.5 H Plt Count Lymph % (Auto) [place] # (Auto) Eos # (Auto) Seg Neutrophils % Lymphocytes % (Manual) Eosinophils % (Manual) Basophils % (Manual) Nucleated RBC % Seg Neutrophils # Seg Neutrophils # Man Lymphocytes # (Manual) Monocytes # (Manual) Eosinophils # (Manual) Basophils # (Manual) Percent Retic PT INR Fibrinogen D-Dimer ABG pH POC ABG pCO2 POC ABG pO2 ABG pO2 ABG HCO3 ABG O2 Saturation ABG Base Excess ABG Hemoglobin ABG Oxyhemoglobin ABG Sodium ABG Potassium ABG Chloride ABG Glucose Oxyhemoglobin Carboxyhemoglobin Sodium Potassium Chloride Carbon Dioxide BUN 46 H Creatinine 6.2 H Glucose 131 H POC Glucose Hemoglobin A1c Calcium Phosphorus 6.00 H D Magnesium AST ALT Alkaline Phosphatase Lactate Dehydrogenase 318 H C-Reactive Protein 18.60 H Total Protein Albumin 3.0 L Triglycerides Arterial Blood Glucose Arterial Blood Ionized Calcium Urine WBC (Auto) U Epithel Cells (Auto) Urine Creatinine Random Vancomycin Heparin-induced Plt Ab Coronavirus (PCR) Crossmatch 03/16/21 03/16/21 03/16/21 05:51 06:37 08:58 WBC RBC Hgb Hct MCH MCHC RDW Plt Count Lymph % (Auto) [place] # (Auto) Eos # (Auto) Seg Neutrophils % Lymphocytes % (Manual) Eosinophils % (Manual) Basophils % (Manual) Nucleated RBC % Seg Neutrophils # Seg Neutrophils # Man Lymphocytes # (Manual) Monocytes # (Manual) Eosinophils # (Manual) Basophils # (Manual) Percent Retic PT INR Fibrinogen D-Dimer 3041.12 H ABG pH POC ABG pCO2 POC ABG pO2 ABG pO2 141.5 H ABG HCO3 ABG O2 Saturation ABG Base Excess ABG Hemoglobin 9.7 L ABG Oxyhemoglobin ABG Sodium ABG Potassium ABG Chloride ABG Glucose Oxyhemoglobin Carboxyhemoglobin Sodium Potassium Chloride Carbon Dioxide BUN Creatinine Glucose POC Glucose 126 H Hemoglobin A1c Calcium Phosphorus Magnesium AST ALT Alkaline Phosphatase Lactate Dehydrogenase C-Reactive Protein Total Protein Albumin Triglycerides Arterial Blood Glucose Arterial Blood Ionized Calcium Urine WBC (Auto) U Epithel Cells (Auto) Urine Creatinine Random Vancomycin Heparin-induced Plt Ab Coronavirus (PCR) Crossmatch 03/16/21 03/16/21 03/16/21 12:11 16:51 21:00 WBC RBC Hgb Hct MCH MCHC RDW Plt Count Lymph % (Auto) [place] # (Auto) Eos # (Auto) Seg Neutrophils % Lymphocytes % (Manual) Eosinophils % (Manual) Basophils % (Manual) Nucleated RBC % Seg Neutrophils # Seg Neutrophils # Man Lymphocytes # (Manual) Monocytes # (Manual) Eosinophils # (Manual) Basophils # (Manual) Percent Retic PT INR Fibrinogen D-Dimer ABG pH 7.239 L POC ABG pCO2 61.5 H POC ABG pO2 80.8 L ABG pO2 ABG HCO3 ABG O2 Saturation ABG Base Excess ABG Hemoglobin 11.4 L ABG Oxyhemoglobin 93.5 L ABG Sodium ABG Potassium 5.4 H ABG Chloride ABG Glucose 137 H Oxyhemoglobin Carboxyhemoglobin 0.2 L Sodium Potassium Chloride Carbon Dioxide BUN Creatinine Glucose POC Glucose 156 H 133 H Hemoglobin A1c Calcium Phosphorus Magnesium AST ALT Alkaline Phosphatase Lactate Dehydrogenase C-Reactive Protein Total Protein Albumin Triglycerides Arterial Blood Glucose 137 H Arterial Blood Ionized Calcium Urine WBC (Auto) U Epithel Cells (Auto) Urine Creatinine Random Vancomycin Heparin-induced Plt Ab Coronavirus (PCR) Crossmatch 03/16/21 03/17/21 03/17/21 23:42 05:23 05:23 WBC 18.4 H RBC Hgb Hct MCH 27 L MCHC RDW 17.4 H Plt Count Lymph % (Auto) [place] # (Auto) Eos # (Auto) Seg Neutrophils % Lymphocytes % (Manual) Eosinophils % (Manual) Basophils % (Manual) Nucleated RBC % Seg Neutrophils # Seg Neutrophils # Man Lymphocytes # (Manual) Monocytes # (Manual) Eosinophils # (Manual) Basophils # (Manual) Percent Retic PT INR Fibrinogen D-Dimer ABG pH POC ABG pCO2 POC ABG pO2 ABG pO2 ABG HCO3 ABG O2 Saturation ABG Base Excess ABG Hemoglobin ABG Oxyhemoglobin ABG Sodium ABG Potassium ABG Chloride ABG Glucose Oxyhemoglobin Carboxyhemoglobin Sodium Potassium 5.2 H Chloride Carbon Dioxide 21 L BUN 79 H Creatinine 8.6 H Glucose 124 H POC Glucose 133 H Hemoglobin A1c Calcium Phosphorus Magnesium AST ALT Alkaline Phosphatase Lactate Dehydrogenase C-Reactive Protein Total Protein Albumin 3.2 L Triglycerides 285 H Arterial Blood Glucose Arterial Blood Ionized Calcium Urine WBC (Auto) U Epithel Cells (Auto) Urine Creatinine Random Vancomycin Heparin-induced Plt Ab Coronavirus (PCR) Crossmatch 03/17/21 03/17/21 03/17/21 05:23 10:48 12:20 WBC RBC Hgb Hct MCH MCHC RDW Plt Count Lymph % (Auto) [place] # (Auto) Eos # (Auto) Seg Neutrophils % Lymphocytes % (Manual) Eosinophils % (Manual) Basophils % (Manual) Nucleated RBC % Seg Neutrophils # Seg Neutrophils # Man Lymphocytes # (Manual) Monocytes # (Manual) Eosinophils # (Manual) Basophils # (Manual) Percent Retic PT INR Fibrinogen D-Dimer ABG pH 7.294 L POC ABG pCO2 POC ABG pO2 ABG pO2 90.3 H ABG HCO3 ABG O2 Saturation ABG Base Excess ABG Hemoglobin 9.9 L ABG Oxyhemoglobin ABG Sodium ABG Potassium ABG Chloride ABG Glucose Oxyhemoglobin Carboxyhemoglobin Sodium Potassium 5.2 H Chloride Carbon Dioxide 21 L BUN 79 H Creatinine 8.4 H Glucose 125 H POC Glucose 171 H Hemoglobin A1c Calcium Phosphorus 9.90 H D Magnesium 2.40 H AST ALT Alkaline Phosphatase Lactate Dehydrogenase C-Reactive Protein Total Protein Albumin Triglycerides Arterial Blood Glucose Arterial Blood Ionized Calcium Urine WBC (Auto) U Epithel Cells (Auto) Urine Creatinine Random Vancomycin Heparin-induced Plt Ab Coronavirus (PCR) Crossmatch 03/17/21 03/17/21 03/18/21 17:24 21:00 04:30 WBC RBC Hgb Hct MCH MCHC RDW Plt Count Lymph % (Auto) [place] # (Auto) Eos # (Auto) Seg Neutrophils % Lymphocytes % (Manual) Eosinophils % (Manual) Basophils % (Manual) Nucleated RBC % Seg Neutrophils # Seg Neutrophils # Man Lymphocytes # (Manual) Monocytes # (Manual) Eosinophils # (Manual) Basophils # (Manual) Percent Retic PT INR Fibrinogen D-Dimer 9953.09 H ABG pH 7.310 L POC ABG pCO2 54.5 H POC ABG pO2 62.3 L ABG pO2 ABG HCO3 ABG O2 Saturation ABG Base Excess ABG Hemoglobin 10.2 L ABG Oxyhemoglobin 88.6 L ABG Sodium ABG Potassium 4.7 H ABG Chloride ABG Glucose 99 H Oxyhemoglobin Carboxyhemoglobin 0.3 L Sodium Potassium Chloride Carbon Dioxide BUN Creatinine Glucose POC Glucose 121 H Hemoglobin A1c Calcium Phosphorus Magnesium AST ALT Alkaline Phosphatase Lactate Dehydrogenase C-Reactive Protein Total Protein Albumin Triglycerides Arterial Blood Glucose 99 H Arterial Blood Ionized Calcium 4.3 L Urine WBC (Auto) U Epithel Cells (Auto) Urine Creatinine Random Vancomycin Heparin-induced Plt Ab Coronavirus (PCR) Crossmatch 03/18/21 03/18/21 03/18/21 04:30 04:30 11:34 WBC 12.8 H RBC 3.49 L Hgb 9.4 L Hct 29.3 L MCH 27 L MCHC RDW 17.4 H Plt Count Lymph % (Auto) [place] # (Auto) Eos # (Auto) Seg Neutrophils % Lymphocytes % (Manual) Eosinophils % (Manual) Basophils % (Manual) Nucleated RBC % Seg Neutrophils # Seg Neutrophils # Man Lymphocytes # (Manual) Monocytes # (Manual) Eosinophils # (Manual) Basophils # (Manual) Percent Retic PT INR Fibrinogen D-Dimer ABG pH POC ABG pCO2 POC ABG pO2 ABG pO2 ABG HCO3 ABG O2 Saturation ABG Base Excess ABG Hemoglobin ABG Oxyhemoglobin ABG Sodium ABG Potassium ABG Chloride ABG Glucose Oxyhemoglobin Carboxyhemoglobin Sodium Potassium Chloride Carbon Dioxide BUN 69 H Creatinine 7.3 H Glucose POC Glucose 114 H Hemoglobin A1c Calcium 8.2 L Phosphorus 7.60 H D Magnesium AST ALT Alkaline Phosphatase Lactate Dehydrogenase 477 H C-Reactive Protein 6.90 H Total Protein Albumin Triglycerides Arterial Blood Glucose Arterial Blood Ionized Calcium Urine WBC (Auto) U Epithel Cells (Auto) Urine Creatinine Random Vancomycin Heparin-induced Plt Ab Coronavirus (PCR) Crossmatch 03/18/21 03/19/21 03/19/21 21:44 04:13 04:13 WBC 13.7 H RBC 3.32 L Hgb 9.0 L Hct 28.1 L MCH 27 L MCHC RDW 16.9 H Plt Count Lymph % (Auto) [place] # (Auto) Eos # (Auto) Seg Neutrophils % Lymphocytes % (Manual) Eosinophils % (Manual) Basophils % (Manual) Nucleated RBC % Seg Neutrophils # Seg Neutrophils # Man Lymphocytes # (Manual) Monocytes # (Manual) Eosinophils # (Manual) Basophils # (Manual) Percent Retic PT INR Fibrinogen D-Dimer ABG pH 7.290 L POC ABG pCO2 POC ABG pO2 ABG pO2 119.7 H ABG HCO3 28.0 H ABG O2 Saturation ABG Base Excess ABG Hemoglobin 9.6 L ABG Oxyhemoglobin ABG Sodium ABG Potassium ABG Chloride ABG Glucose Oxyhemoglobin Carboxyhemoglobin Sodium Potassium Chloride Carbon Dioxide BUN Creatinine Glucose POC Glucose Hemoglobin A1c Calcium Phosphorus Magnesium AST ALT Alkaline Phosphatase Lactate Dehydrogenase C-Reactive Protein Total Protein Albumin Triglycerides Arterial Blood Glucose Arterial Blood Ionized Calcium Urine WBC (Auto) U Epithel Cells (Auto) Urine Creatinine Random Vancomycin 43.5 H Heparin-induced Plt Ab Coronavirus (PCR) Crossmatch 03/19/21 03/19/21 03/19/21 04:13 05:59 11:40 WBC RBC Hgb Hct MCH MCHC RDW Plt Count Lymph % (Auto) [place] # (Auto) Eos # (Auto) Seg Neutrophils % Lymphocytes % (Manual) Eosinophils % (Manual) Basophils % (Manual) Nucleated RBC % Seg Neutrophils # Seg Neutrophils # Man Lymphocytes # (Manual) Monocytes # (Manual) Eosinophils # (Manual) Basophils # (Manual) Percent Retic PT INR Fibrinogen D-Dimer ABG pH POC ABG pCO2 POC ABG pO2 ABG pO2 ABG HCO3 ABG O2 Saturation ABG Base Excess ABG Hemoglobin ABG Oxyhemoglobin ABG Sodium ABG Potassium ABG Chloride ABG Glucose Oxyhemoglobin Carboxyhemoglobin Sodium Potassium Chloride Carbon Dioxide BUN 55 H Creatinine 7.0 H Glucose POC Glucose 116 H 145 H Hemoglobin A1c Calcium 8.1 L Phosphorus 7.90 H Magnesium AST ALT Alkaline Phosphatase Lactate Dehydrogenase C-Reactive Protein Total Protein Albumin Triglycerides Arterial Blood Glucose Arterial Blood Ionized Calcium Urine WBC (Auto) U Epithel Cells (Auto) Urine Creatinine Random Vancomycin Heparin-induced Plt Ab Coronavirus (PCR) Crossmatch 03/19/21 03/19/21 03/20/21 17:01 23:41 04:00 WBC 15.6 H RBC 3.55 L Hgb 9.6 L Hct MCH 27 L MCHC RDW 16.8 H Plt Count 139 L Lymph % (Auto) [place] # (Auto) Eos # (Auto) Seg Neutrophils % Lymphocytes % (Manual) Eosinophils % (Manual) Basophils % (Manual) Nucleated RBC % Seg Neutrophils # Seg Neutrophils # Man Lymphocytes # (Manual) Monocytes # (Manual) Eosinophils # (Manual) Basophils # (Manual) Percent Retic PT INR Fibrinogen D-Dimer ABG pH POC ABG pCO2 POC ABG pO2 ABG pO2 ABG HCO3 ABG O2 Saturation ABG Base Excess ABG Hemoglobin ABG Oxyhemoglobin ABG Sodium ABG Potassium ABG Chloride ABG Glucose Oxyhemoglobin Carboxyhemoglobin Sodium Potassium Chloride Carbon Dioxide BUN Creatinine Glucose POC Glucose 111 H 118 H Hemoglobin A1c Calcium Phosphorus Magnesium AST ALT Alkaline Phosphatase Lactate Dehydrogenase C-Reactive Protein Total Protein Albumin Triglycerides Arterial Blood Glucose Arterial Blood Ionized Calcium Urine WBC (Auto) U Epithel Cells (Auto) Urine Creatinine Random Vancomycin Heparin-induced Plt Ab Coronavirus (PCR) Crossmatch 03/20/21 03/20/21 03/20/21 04:00 04:00 04:37 WBC RBC Hgb Hct MCH MCHC RDW Plt Count Lymph % (Auto) [place] # (Auto) Eos # (Auto) Seg Neutrophils % Lymphocytes % (Manual) Eosinophils % (Manual) Basophils % (Manual) Nucleated RBC % Seg Neutrophils # Seg Neutrophils # Man Lymphocytes # (Manual) Monocytes # (Manual) Eosinophils # (Manual) Basophils # (Manual) Percent Retic PT INR Fibrinogen D-Dimer > 28825 H ABG pH 7.306 L POC ABG pCO2 POC ABG pO2 ABG pO2 ABG HCO3 27.9 H ABG O2 Saturation ABG Base Excess ABG Hemoglobin 5.2 L ABG Oxyhemoglobin ABG Sodium ABG Potassium ABG Chloride ABG Glucose Oxyhemoglobin Carboxyhemoglobin Sodium Potassium 5.2 H Chloride 97.6 L Carbon Dioxide BUN 52 H Creatinine 6.2 H Glucose 104 H POC Glucose Hemoglobin A1c Calcium Phosphorus 8.60 H Magnesium AST ALT Alkaline Phosphatase Lactate Dehydrogenase C-Reactive Protein 6.90 H Total Protein Albumin Triglycerides Arterial Blood Glucose Arterial Blood Ionized Calcium Urine WBC (Auto) U Epithel Cells (Auto) Urine Creatinine Random Vancomycin Heparin-induced Plt Ab Coronavirus (PCR) Crossmatch 03/20/21 03/20/21 03/20/21 13:50 17:46 17:56 WBC RBC Hgb Hct MCH MCHC RDW Plt Count Lymph % (Auto) [place] # (Auto) Eos # (Auto) Seg Neutrophils % Lymphocytes % (Manual) Eosinophils % (Manual) Basophils % (Manual) Nucleated RBC % Seg Neutrophils # Seg Neutrophils # Man Lymphocytes # (Manual) Monocytes # (Manual) Eosinophils # (Manual) Basophils # (Manual) Percent Retic PT INR Fibrinogen D-Dimer ABG pH POC ABG pCO2 POC ABG pO2 ABG pO2 ABG HCO3 ABG O2 Saturation ABG Base Excess ABG Hemoglobin ABG Oxyhemoglobin ABG Sodium ABG Potassium ABG Chloride ABG Glucose Oxyhemoglobin Carboxyhemoglobin Sodium Potassium Chloride Carbon Dioxide BUN 63 H 43 H Creatinine Glucose POC Glucose 145 H Hemoglobin A1c Calcium Phosphorus Magnesium AST ALT Alkaline Phosphatase Lactate Dehydrogenase C-Reactive Protein Total Protein Albumin Triglycerides Arterial Blood Glucose Arterial Blood Ionized Calcium Urine WBC (Auto) U Epithel Cells (Auto) Urine Creatinine Random Vancomycin Heparin-induced Plt Ab Coronavirus (PCR) Crossmatch 03/20/21 03/21/21 03/21/21 23:18 06:58 06:58 WBC 14.4 H RBC 3.41 L Hgb 9.5 L Hct 28.6 L MCH MCHC RDW 17.4 H Plt Count 107 L Lymph % (Auto) [place] # (Auto) Eos # (Auto) Seg Neutrophils % Lymphocytes % (Manual) Eosinophils % (Manual) Basophils % (Manual) Nucleated RBC % Seg Neutrophils # Seg Neutrophils # Man Lymphocytes # (Manual) Monocytes # (Manual) Eosinophils # (Manual) Basophils # (Manual) Percent Retic PT INR Fibrinogen D-Dimer ABG pH POC ABG pCO2 POC ABG pO2 ABG pO2 ABG HCO3 ABG O2 Saturation ABG Base Excess ABG Hemoglobin ABG Oxyhemoglobin ABG Sodium ABG Potassium ABG Chloride ABG Glucose Oxyhemoglobin Carboxyhemoglobin Sodium Potassium Chloride Carbon Dioxide BUN 60 H Creatinine 7.7 H Glucose POC Glucose 106 H Hemoglobin A1c Calcium Phosphorus Magnesium AST ALT Alkaline Phosphatase Lactate Dehydrogenase C-Reactive Protein Total Protein Albumin Triglycerides Arterial Blood Glucose Arterial Blood Ionized Calcium Urine WBC (Auto) U Epithel Cells (Auto) Urine Creatinine Random Vancomycin Heparin-induced Plt Ab Coronavirus (PCR) Crossmatch 03/21/21 03/21/21 03/21/21 11:11 18:04 Unknown WBC RBC Hgb Hct MCH MCHC RDW Plt Count Lymph % (Auto) [place] # (Auto) Eos # (Auto) Seg Neutrophils % Lymphocytes % (Manual) Eosinophils % (Manual) Basophils % (Manual) Nucleated RBC % Seg Neutrophils # Seg Neutrophils # Man Lymphocytes # (Manual) Monocytes # (Manual) Eosinophils # (Manual) Basophils # (Manual) Percent Retic PT INR Fibrinogen D-Dimer ABG pH 7.270 L POC ABG pCO2 58.7 H POC ABG pO2 76.9 L ABG pO2 ABG HCO3 ABG O2 Saturation ABG Base Excess ABG Hemoglobin 9.9 L ABG Oxyhemoglobin 92.4 L ABG Sodium 135.8 L ABG Potassium 4.6 H ABG Chloride ABG Glucose Oxyhemoglobin Carboxyhemoglobin 0.1 L Sodium Potassium Chloride Carbon Dioxide BUN Creatinine Glucose POC Glucose 109 H 141 H Hemoglobin A1c Calcium Phosphorus Magnesium AST ALT Alkaline Phosphatase Lactate Dehydrogenase C-Reactive Protein Total Protein Albumin Triglycerides Arterial Blood Glucose Arterial Blood Ionized Calcium 4.5 L Urine WBC (Auto) U Epithel Cells (Auto) Urine Creatinine Random Vancomycin Heparin-induced Plt Ab Coronavirus (PCR) Crossmatch 03/22/21 03/22/21 03/22/21 03:09 07:10 10:00 WBC RBC Hgb Hct MCH MCHC RDW Plt Count Lymph % (Auto) [place] # (Auto) Eos # (Auto) Seg Neutrophils % Lymphocytes % (Manual) Eosinophils % (Manual) Basophils % (Manual) Nucleated RBC % Seg Neutrophils # Seg Neutrophils # Man Lymphocytes # (Manual) Monocytes # (Manual) Eosinophils # (Manual) Basophils # (Manual) Percent Retic PT INR Fibrinogen D-Dimer ABG pH 7.206 L 7.245 L POC ABG pCO2 55.6 H POC ABG pO2 ABG pO2 90.6 H ABG HCO3 ABG O2 Saturation ABG Base Excess -4.4 L ABG Hemoglobin 9.0 L 8.4 L ABG Oxyhemoglobin ABG Sodium 123.4 L ABG Potassium 5.6 H ABG Chloride ABG Glucose 106 H Oxyhemoglobin 94.5 L Carboxyhemoglobin 0.1 L Sodium Potassium 5.4 H Chloride 96.8 L Carbon Dioxide BUN 89 H Creatinine 8.7 H Glucose 131 H POC Glucose Hemoglobin A1c Calcium Phosphorus Magnesium AST ALT Alkaline Phosphatase Lactate Dehydrogenase C-Reactive Protein 9.40 H Total Protein Albumin Triglycerides Arterial Blood Glucose 106 H Arterial Blood Ionized Calcium Urine WBC (Auto) U Epithel Cells (Auto) Urine Creatinine Random Vancomycin Heparin-induced Plt Ab Coronavirus (PCR) Crossmatch 03/22/21 03/22/21 03/22/21 10:00 12:37 13:19 WBC RBC 3.05 L Hgb 8.4 L Hct 25.5 L MCH MCHC RDW 17.5 H Plt Count 108 L Lymph % (Auto) [place] # (Auto) Eos # (Auto) Seg Neutrophils % Lymphocytes % (Manual) Eosinophils % (Manual) Basophils % (Manual) Nucleated RBC % Seg Neutrophils # Seg Neutrophils # Man Lymphocytes # (Manual) Monocytes # (Manual) Eosinophils # (Manual) Basophils # (Manual) Percent Retic PT INR Fibrinogen D-Dimer ABG pH POC ABG pCO2 POC ABG pO2 ABG pO2 ABG HCO3 ABG O2 Saturation ABG Base Excess ABG Hemoglobin ABG Oxyhemoglobin ABG Sodium ABG Potassium ABG Chloride ABG Glucose Oxyhemoglobin Carboxyhemoglobin Sodium Potassium Chloride Carbon Dioxide BUN Creatinine 8.7 H Glucose POC Glucose 140 H Hemoglobin A1c Calcium Phosphorus Magnesium AST ALT Alkaline Phosphatase Lactate Dehydrogenase C-Reactive Protein Total Protein Albumin Triglycerides Arterial Blood Glucose Arterial Blood Ionized Calcium Urine WBC (Auto) U Epithel Cells (Auto) Urine Creatinine Random Vancomycin Heparin-induced Plt Ab Coronavirus (PCR) Crossmatch 03/22/21 03/22/21 03/22/21 13:40 17:14 18:21 WBC RBC Hgb Hct MCH MCHC RDW Plt Count Lymph % (Auto) [place] # (Auto) Eos # (Auto) Seg Neutrophils % Lymphocytes % (Manual) Eosinophils % (Manual) Basophils % (Manual) Nucleated RBC % Seg Neutrophils # Seg Neutrophils # Man Lymphocytes # (Manual) Monocytes # (Manual) Eosinophils # (Manual) Basophils # (Manual) Percent Retic PT 15.8 H INR 1.14 H Fibrinogen D-Dimer > 56652 H ABG pH POC ABG pCO2 POC ABG pO2 ABG pO2 ABG HCO3 ABG O2 Saturation ABG Base Excess ABG Hemoglobin ABG Oxyhemoglobin ABG Sodium ABG Potassium ABG Chloride ABG Glucose Oxyhemoglobin Carboxyhemoglobin Sodium Potassium Chloride Carbon Dioxide BUN Creatinine Glucose POC Glucose 117 H 112 H Hemoglobin A1c Calcium Phosphorus Magnesium AST ALT Alkaline Phosphatase Lactate Dehydrogenase C-Reactive Protein Total Protein Albumin Triglycerides Arterial Blood Glucose Arterial Blood Ionized Calcium Urine WBC (Auto) U Epithel Cells (Auto) Urine Creatinine Random Vancomycin Heparin-induced Plt Ab Coronavirus (PCR) Crossmatch 03/22/21 03/22/21 03/23/21 21:25 22:57 04:30 WBC RBC Hgb Hct MCH MCHC RDW Plt Count Lymph % (Auto) [place] # (Auto) Eos # (Auto) Seg Neutrophils % Lymphocytes % (Manual) Eosinophils % (Manual) Basophils % (Manual) Nucleated RBC % Seg Neutrophils # Seg Neutrophils # Man Lymphocytes # (Manual) Monocytes # (Manual) Eosinophils # (Manual) Basophils # (Manual) Percent Retic PT INR Fibrinogen D-Dimer ABG pH 7.188 L* POC ABG pCO2 POC ABG pO2 ABG pO2 97.9 H ABG HCO3 ABG O2 Saturation ABG Base Excess -3.7 L ABG Hemoglobin 9.2 L ABG Oxyhemoglobin ABG Sodium ABG Potassium ABG Chloride ABG Glucose Oxyhemoglobin 94.4 L Carboxyhemoglobin Sodium Potassium Chloride Carbon Dioxide BUN Creatinine Glucose POC Glucose 106 H Hemoglobin A1c Calcium Phosphorus Magnesium AST ALT Alkaline Phosphatase Lactate Dehydrogenase C-Reactive Protein Total Protein Albumin Triglycerides 381 H Arterial Blood Glucose Arterial Blood Ionized Calcium Urine WBC (Auto) U Epithel Cells (Auto) Urine Creatinine Random Vancomycin Heparin-induced Plt Ab Coronavirus (PCR) Crossmatch 03/23/21 03/23/21 03/23/21 04:30 04:30 05:37 WBC 20.1 H RBC 3.17 L Hgb 8.6 L Hct 27.2 L MCH 27 L MCHC RDW 17.4 H Plt Count 118 L Lymph % (Auto) [place] # (Auto) Eos # (Auto) Seg Neutrophils % Lymphocytes % (Manual) Eosinophils % (Manual) Basophils % (Manual) Nucleated RBC % Seg Neutrophils # Seg Neutrophils # Man Lymphocytes # (Manual) Monocytes # (Manual) Eosinophils # (Manual) Basophils # (Manual) Percent Retic PT INR Fibrinogen D-Dimer ABG pH POC ABG pCO2 POC ABG pO2 ABG pO2 ABG HCO3 ABG O2 Saturation ABG Base Excess ABG Hemoglobin ABG Oxyhemoglobin ABG Sodium ABG Potassium ABG Chloride ABG Glucose Oxyhemoglobin Carboxyhemoglobin Sodium Potassium 5.2 H Chloride 97.1 L Carbon Dioxide 21 L BUN 82 H Creatinine 9.1 H Glucose 109 H POC Glucose 130 H Hemoglobin A1c Calcium Phosphorus 10.80 H Magnesium 3.50 H AST ALT Alkaline Phosphatase Lactate Dehydrogenase C-Reactive Protein Total Protein Albumin Triglycerides Arterial Blood Glucose Arterial Blood Ionized Calcium Urine WBC (Auto) U Epithel Cells (Auto) Urine Creatinine Random Vancomycin Heparin-induced Plt Ab Coronavirus (PCR) Crossmatch 03/23/21 03/23/21 03/23/21 08:44 11:30 16:09 WBC RBC Hgb Hct MCH MCHC RDW Plt Count Lymph % (Auto) [place] # (Auto) Eos # (Auto) Seg Neutrophils % Lymphocytes % (Manual) Eosinophils % (Manual) Basophils % (Manual) Nucleated RBC % Seg Neutrophils # Seg Neutrophils # Man Lymphocytes # (Manual) Monocytes # (Manual) Eosinophils # (Manual) Basophils # (Manual) Percent Retic PT INR Fibrinogen D-Dimer ABG pH 7.190 L POC ABG pCO2 57.9 H POC ABG pO2 79.2 L ABG pO2 ABG HCO3 ABG O2 Saturation ABG Base Excess ABG Hemoglobin 11.8 L ABG Oxyhemoglobin 92.3 L ABG Sodium 131.0 L ABG Potassium 5.0 H ABG Chloride ABG Glucose 122 H Oxyhemoglobin Carboxyhemoglobin 0.4 L Sodium Potassium Chloride Carbon Dioxide BUN Creatinine Glucose POC Glucose 129 H 148 H Hemoglobin A1c Calcium Phosphorus Magnesium AST ALT Alkaline Phosphatase Lactate Dehydrogenase C-Reactive Protein Total Protein Albumin Triglycerides Arterial Blood Glucose 122 H Arterial Blood Ionized Calcium 4.4 L Urine WBC (Auto) U Epithel Cells (Auto) Urine Creatinine Random Vancomycin Heparin-induced Plt Ab Coronavirus (PCR) Crossmatch 11/09/21 11/10/21 11/10/21 21:00 03:35 04:00 WBC 17.8 H RBC 2.96 L Hgb 8.1 L Hct 25.0 L MCH 27 L MCHC RDW 17.7 H Plt Count 124 L Lymph % (Auto) [place] # (Auto) Eos # (Auto) Seg Neutrophils % Lymphocytes % (Manual) Eosinophils % (Manual) Basophils % (Manual) Nucleated RBC % Seg Neutrophils # Seg Neutrophils # Man Lymphocytes # (Manual) Monocytes # (Manual) Eosinophils # (Manual) Basophils # (Manual) Percent Retic PT INR Fibrinogen D-Dimer ABG pH 7.223 L POC ABG pCO2 50.3 H POC ABG pO2 114.4 H ABG pO2 ABG HCO3 ABG O2 Saturation ABG Base Excess ABG Hemoglobin 8.8 L ABG Oxyhemoglobin ABG Sodium 130.4 L ABG Potassium 5.1 H ABG Chloride ABG Glucose 126 H Oxyhemoglobin Carboxyhemoglobin 0.2 L Sodium Potassium Chloride Carbon Dioxide BUN Creatinine Glucose POC Glucose 148 H Hemoglobin A1c Calcium Phosphorus Magnesium AST ALT Alkaline Phosphatase Lactate Dehydrogenase C-Reactive Protein Total Protein Albumin Triglycerides Arterial Blood Glucose 126 H Arterial Blood Ionized Calcium 4.4 L Urine WBC (Auto) U Epithel Cells (Auto) Urine Creatinine Random Vancomycin Heparin-induced Plt Ab Coronavirus (PCR) Crossmatch 03/24/21 03/24/21 03/24/21 04:00 06:49 12:29 WBC RBC Hgb Hct MCH MCHC RDW Plt Count Lymph % (Auto) [place] # (Auto) Eos # (Auto) Seg Neutrophils % Lymphocytes % (Manual) Eosinophils % (Manual) Basophils % (Manual) Nucleated RBC % Seg Neutrophils # Seg Neutrophils # Man Lymphocytes # (Manual) Monocytes # (Manual) Eosinophils # (Manual) Basophils # (Manual) Percent Retic PT INR Fibrinogen D-Dimer ABG pH POC ABG pCO2 POC ABG pO2 ABG pO2 ABG HCO3 ABG O2 Saturation ABG Base Excess ABG Hemoglobin ABG Oxyhemoglobin ABG Sodium ABG Potassium ABG Chloride ABG Glucose Oxyhemoglobin Carboxyhemoglobin Sodium Potassium Chloride 95.6 L Carbon Dioxide 20 L BUN 108 H Creatinine 10.8 H Glucose 155 H POC Glucose 136 H 142 H Hemoglobin A1c Calcium Phosphorus Magnesium AST ALT Alkaline Phosphatase Lactate Dehydrogenase C-Reactive Protein Total Protein Albumin Triglycerides Arterial Blood Glucose Arterial Blood Ionized Calcium Urine WBC (Auto) U Epithel Cells (Auto) Urine Creatinine Random Vancomycin Heparin-induced Plt Ab Coronavirus (PCR) Crossmatch 03/24/21 03/25/21 03/25/21 21:35 00:15 05:51 WBC RBC Hgb Hct MCH MCHC RDW Plt Count Lymph % (Auto) [place] # (Auto) Eos # (Auto) Seg Neutrophils % Lymphocytes % (Manual) Eosinophils % (Manual) Basophils % (Manual) Nucleated RBC % Seg Neutrophils # Seg Neutrophils # Man Lymphocytes # (Manual) Monocytes # (Manual) Eosinophils # (Manual) Basophils # (Manual) Percent Retic PT INR Fibrinogen D-Dimer ABG pH 7.241 L POC ABG pCO2 POC ABG pO2 ABG pO2 72.4 L ABG HCO3 ABG O2 Saturation 90.3 L ABG Base Excess ABG Hemoglobin 7.9 L ABG Oxyhemoglobin ABG Sodium ABG Potassium ABG Chloride ABG Glucose Oxyhemoglobin 88.4 L Carboxyhemoglobin Sodium Potassium Chloride Carbon Dioxide BUN Creatinine Glucose POC Glucose 110 H 121 H Hemoglobin A1c Calcium Phosphorus Magnesium AST ALT Alkaline Phosphatase Lactate Dehydrogenase C-Reactive Protein Total Protein Albumin Triglycerides Arterial Blood Glucose Arterial Blood Ionized Calcium Urine WBC (Auto) U Epithel Cells (Auto) Urine Creatinine Random Vancomycin Heparin-induced Plt Ab Coronavirus (PCR) Crossmatch 03/25/21 03/25/21 03/25/21 05:54 05:54 12:21 WBC 12.4 H RBC 2.52 L Hgb 6.9 L Hct 21.1 L MCH MCHC RDW 17.4 H Plt Count 102 L Lymph % (Auto) [place] # (Auto) Eos # (Auto) Seg Neutrophils % Lymphocytes % (Manual) Eosinophils % (Manual) Basophils % (Manual) Nucleated RBC % Seg Neutrophils # Seg Neutrophils # Man Lymphocytes # (Manual) Monocytes # (Manual) Eosinophils # (Manual) Basophils # (Manual) Percent Retic PT INR Fibrinogen D-Dimer ABG pH POC ABG pCO2 POC ABG pO2 ABG pO2 ABG HCO3 ABG O2 Saturation ABG Base Excess ABG Hemoglobin ABG Oxyhemoglobin ABG Sodium ABG Potassium ABG Chloride ABG Glucose Oxyhemoglobin Carboxyhemoglobin Sodium Potassium Chloride 96.7 L Carbon Dioxide BUN 81 H Creatinine 8.1 H Glucose 116 H POC Glucose 138 H Hemoglobin A1c Calcium 8.2 L Phosphorus Magnesium AST ALT Alkaline Phosphatase Lactate Dehydrogenase C-Reactive Protein Total Protein Albumin Triglycerides Arterial Blood Glucose Arterial Blood Ionized Calcium Urine WBC (Auto) U Epithel Cells (Auto) Urine Creatinine Random Vancomycin Heparin-induced Plt Ab Coronavirus (PCR) Crossmatch 03/25/21 03/25/21 03/25/21 13:45 17:32 21:30 WBC RBC Hgb Hct MCH MCHC RDW Plt Count Lymph % (Auto) [place] # (Auto) Eos # (Auto) Seg Neutrophils % Lymphocytes % (Manual) Eosinophils % (Manual) Basophils % (Manual) Nucleated RBC % Seg Neutrophils # Seg Neutrophils # Man Lymphocytes # (Manual) Monocytes # (Manual) Eosinophils # (Manual) Basophils # (Manual) Percent Retic PT INR Fibrinogen D-Dimer ABG pH POC ABG pCO2 POC ABG pO2 ABG pO2 70.2 L ABG HCO3 ABG O2 Saturation ABG Base Excess ABG Hemoglobin 6.8 L ABG Oxyhemoglobin ABG Sodium ABG Potassium ABG Chloride ABG Glucose Oxyhemoglobin 94.5 L Carboxyhemoglobin Sodium Potassium Chloride Carbon Dioxide BUN Creatinine Glucose POC Glucose 110 H Hemoglobin A1c Calcium Phosphorus Magnesium AST ALT Alkaline Phosphatase Lactate Dehydrogenase C-Reactive Protein Total Protein Albumin Triglycerides Arterial Blood Glucose Arterial Blood Ionized Calcium Urine WBC (Auto) U Epithel Cells (Auto) Urine Creatinine Random Vancomycin Heparin-induced Plt Ab Coronavirus (PCR) Crossmatch See Detail 03/25/21 03/25/21 03/26/21 23:29 Unknown 05:15 WBC 12.4 H 14.0 H RBC 2.49 L 2.83 L Hgb 6.8 L 7.6 L Hct 20.9 L 23.6 L MCH 27 L 27 L MCHC RDW 18.0 H 17.1 H Plt Count 107 L 116 L Lymph % (Auto) [place] # (Auto) Eos # (Auto) Seg Neutrophils % Lymphocytes % (Manual) Eosinophils % (Manual) Basophils % (Manual) Nucleated RBC % Seg Neutrophils # Seg Neutrophils # Man Lymphocytes # (Manual) Monocytes # (Manual) Eosinophils # (Manual) Basophils # (Manual) Percent Retic PT INR Fibrinogen D-Dimer ABG pH POC ABG pCO2 POC ABG pO2 ABG pO2 ABG HCO3 ABG O2 Saturation ABG Base Excess ABG Hemoglobin ABG Oxyhemoglobin ABG Sodium ABG Potassium ABG Chloride ABG Glucose Oxyhemoglobin Carboxyhemoglobin Sodium Potassium Chloride Carbon Dioxide BUN Creatinine Glucose POC Glucose 113 H Hemoglobin A1c Calcium Phosphorus Magnesium AST ALT Alkaline Phosphatase Lactate Dehydrogenase C-Reactive Protein Total Protein Albumin Triglycerides Arterial Blood Glucose Arterial Blood Ionized Calcium Urine WBC (Auto) U Epithel Cells (Auto) Urine Creatinine Random Vancomycin Heparin-induced Plt Ab Coronavirus (PCR) Crossmatch 03/26/21 03/26/21 03/26/21 05:15 05:35 09:50 WBC RBC Hgb Hct MCH MCHC RDW Plt Count Lymph % (Auto) [place] # (Auto) Eos # (Auto) Seg Neutrophils % Lymphocytes % (Manual) Eosinophils % (Manual) Basophils % (Manual) Nucleated RBC % Seg Neutrophils # Seg Neutrophils # Man Lymphocytes # (Manual) Monocytes # (Manual) Eosinophils # (Manual) Basophils # (Manual) Percent Retic PT INR Fibrinogen D-Dimer ABG pH POC ABG pCO2 POC ABG pO2 ABG pO2 79.9 L ABG HCO3 ABG O2 Saturation ABG Base Excess ABG Hemoglobin 7.1 L ABG Oxyhemoglobin ABG Sodium ABG Potassium ABG Chloride ABG Glucose Oxyhemoglobin 94.9 L Carboxyhemoglobin Sodium Potassium 3.4 L Chloride Carbon Dioxide BUN 70 H Creatinine 7.3 H Glucose 142 H POC Glucose 130 H Hemoglobin A1c Calcium 8.2 L Phosphorus Magnesium AST ALT Alkaline Phosphatase Lactate Dehydrogenase C-Reactive Protein Total Protein Albumin Triglycerides 254 H Arterial Blood Glucose Arterial Blood Ionized Calcium Urine WBC (Auto) U Epithel Cells (Auto) Urine Creatinine Random Vancomycin Heparin-induced Plt Ab Coronavirus (PCR) Crossmatch 03/26/21 03/26/21 03/26/21 11:45 16:36 23:33 WBC RBC Hgb Hct MCH MCHC RDW Plt Count Lymph % (Auto) [place] # (Auto) Eos # (Auto) Seg Neutrophils % Lymphocytes % (Manual) Eosinophils % (Manual) Basophils % (Manual) Nucleated RBC % Seg Neutrophils # Seg Neutrophils # Man Lymphocytes # (Manual) Monocytes # (Manual) Eosinophils # (Manual) Basophils # (Manual) Percent Retic PT INR Fibrinogen D-Dimer ABG pH POC ABG pCO2 POC ABG pO2 ABG pO2 ABG HCO3 ABG O2 Saturation ABG Base Excess ABG Hemoglobin ABG Oxyhemoglobin ABG Sodium ABG Potassium ABG Chloride ABG Glucose Oxyhemoglobin Carboxyhemoglobin Sodium Potassium Chloride Carbon Dioxide BUN Creatinine Glucose POC Glucose 123 H 121 H 120 H Hemoglobin A1c Calcium Phosphorus Magnesium AST ALT Alkaline Phosphatase Lactate Dehydrogenase C-Reactive Protein Total Protein Albumin Triglycerides Arterial Blood Glucose Arterial Blood Ionized Calcium Urine WBC (Auto) U Epithel Cells (Auto) Urine Creatinine Random Vancomycin Heparin-induced Plt Ab Coronavirus (PCR) Crossmatch 03/27/21 03/27/21 03/27/21 03:20 04:14 08:20 WBC 13.2 H RBC 2.82 L Hgb 7.9 L Hct 23.5 L MCH MCHC RDW 17.3 H Plt Count 125 L Lymph % (Auto) [place] # (Auto) Eos # (Auto) Seg Neutrophils % Lymphocytes % (Manual) Eosinophils % (Manual) Basophils % (Manual) Nucleated RBC % Seg Neutrophils # Seg Neutrophils # Man Lymphocytes # (Manual) Monocytes # (Manual) Eosinophils # (Manual) Basophils # (Manual) Percent Retic PT INR Fibrinogen D-Dimer ABG pH POC ABG pCO2 50.0 H POC ABG pO2 58.3 L ABG pO2 ABG HCO3 ABG O2 Saturation ABG Base Excess ABG Hemoglobin 11.3 L ABG Oxyhemoglobin 88.5 L ABG Sodium ABG Potassium ABG Chloride ABG Glucose 132 H Oxyhemoglobin Carboxyhemoglobin 0.2 L Sodium Potassium Chloride Carbon Dioxide BUN Creatinine Glucose POC Glucose 119 H Hemoglobin A1c Calcium Phosphorus Magnesium AST ALT Alkaline Phosphatase Lactate Dehydrogenase C-Reactive Protein Total Protein Albumin Triglycerides Arterial Blood Glucose 132 H Arterial Blood Ionized Calcium Urine WBC (Auto) U Epithel Cells (Auto) Urine Creatinine Random Vancomycin Heparin-induced Plt Ab Coronavirus (PCR) Crossmatch 03/27/21 03/27/21 03/27/21 08:20 11:39 17:32 WBC RBC Hgb Hct MCH MCHC RDW Plt Count Lymph % (Auto) [place] # (Auto) Eos # (Auto) Seg Neutrophils % Lymphocytes % (Manual) Eosinophils % (Manual) Basophils % (Manual) Nucleated RBC % Seg Neutrophils # Seg Neutrophils # Man Lymphocytes # (Manual) Monocytes # (Manual) Eosinophils # (Manual) Basophils # (Manual) Percent Retic PT INR Fibrinogen D-Dimer ABG pH POC ABG pCO2 POC ABG pO2 ABG pO2 ABG HCO3 ABG O2 Saturation ABG Base Excess ABG Hemoglobin ABG Oxyhemoglobin ABG Sodium ABG Potassium ABG Chloride ABG Glucose Oxyhemoglobin Carboxyhemoglobin Sodium Potassium Chloride Carbon Dioxide BUN 57 H Creatinine 6.8 H Glucose 131 H POC Glucose 121 H 126 H Hemoglobin A1c Calcium Phosphorus Magnesium AST ALT Alkaline Phosphatase Lactate Dehydrogenase C-Reactive Protein Total Protein Albumin Triglycerides Arterial Blood Glucose Arterial Blood Ionized Calcium Urine WBC (Auto) U Epithel Cells (Auto) Urine Creatinine Random Vancomycin Heparin-induced Plt Ab Coronavirus (PCR) Crossmatch 03/28/21 03/28/21 03/28/21 00:10 04:45 05:25 WBC RBC Hgb Hct MCH MCHC RDW Plt Count Lymph % (Auto) [place] # (Auto) Eos # (Auto) Seg Neutrophils % Lymphocytes % (Manual) Eosinophils % (Manual) Basophils % (Manual) Nucleated RBC % Seg Neutrophils # Seg Neutrophils # Man Lymphocytes # (Manual) Monocytes # (Manual) Eosinophils # (Manual) Basophils # (Manual) Percent Retic PT INR Fibrinogen D-Dimer ABG pH POC ABG pCO2 POC ABG pO2 ABG pO2 57.6 L ABG HCO3 27.1 H ABG O2 Saturation 88.5 L ABG Base Excess ABG Hemoglobin ABG Oxyhemoglobin ABG Sodium ABG Potassium ABG Chloride ABG Glucose Oxyhemoglobin 86.6 L Carboxyhemoglobin Sodium Potassium Chloride Carbon Dioxide BUN Creatinine Glucose POC Glucose 113 H 121 H Hemoglobin A1c Calcium Phosphorus Magnesium AST ALT Alkaline Phosphatase Lactate Dehydrogenase C-Reactive Protein Total Protein Albumin Triglycerides Arterial Blood Glucose Arterial Blood Ionized Calcium Urine WBC (Auto) U Epithel Cells (Auto) Urine Creatinine Random Vancomycin Heparin-induced Plt Ab Coronavirus (PCR) Crossmatch 03/28/21 03/28/21 03/28/21 09:37 09:37 11:48 WBC 16.3 H RBC 2.92 L Hgb 8.2 L Hct 24.8 L MCH MCHC RDW 17.5 H Plt Count Lymph % (Auto) 10.7 L [place] # (Auto) 0.9 H Eos # (Auto) 0.6 H Seg Neutrophils % 80.0 H Lymphocytes % (Manual) Eosinophils % (Manual) Basophils % (Manual) Nucleated RBC % Seg Neutrophils # 13.0 H Seg Neutrophils # Man Lymphocytes # (Manual) Monocytes # (Manual) Eosinophils # (Manual) Basophils # (Manual) Percent Retic PT INR Fibrinogen D-Dimer ABG pH POC ABG pCO2 POC ABG pO2 ABG pO2 ABG HCO3 ABG O2 Saturation ABG Base Excess ABG Hemoglobin ABG Oxyhemoglobin ABG Sodium ABG Potassium ABG Chloride ABG Glucose Oxyhemoglobin Carboxyhemoglobin Sodium Potassium Chloride Carbon Dioxide BUN 61 H Creatinine 7.7 H Glucose 148 H POC Glucose 123 H Hemoglobin A1c Calcium Phosphorus Magnesium AST ALT Alkaline Phosphatase Lactate Dehydrogenase C-Reactive Protein Total Protein Albumin Triglycerides Arterial Blood Glucose Arterial Blood Ionized Calcium Urine WBC (Auto) U Epithel Cells (Auto) Urine Creatinine Random Vancomycin Heparin-induced Plt Ab Coronavirus (PCR) Crossmatch 03/28/21 03/28/21 03/28/21 17:33 21:08 23:38 WBC RBC Hgb Hct MCH MCHC RDW Plt Count Lymph % (Auto) [place] # (Auto) Eos # (Auto) Seg Neutrophils % Lymphocytes % (Manual) Eosinophils % (Manual) Basophils % (Manual) Nucleated RBC % Seg Neutrophils # Seg Neutrophils # Man Lymphocytes # (Manual) Monocytes # (Manual) Eosinophils # (Manual) Basophils # (Manual) Percent Retic PT INR Fibrinogen D-Dimer ABG pH POC ABG pCO2 POC ABG pO2 80.5 L ABG pO2 ABG HCO3 ABG O2 Saturation ABG Base Excess ABG Hemoglobin 9.5 L ABG Oxyhemoglobin ABG Sodium 133.3 L ABG Potassium ABG Chloride ABG Glucose 134 H Oxyhemoglobin Carboxyhemoglobin 0.3 L Sodium Potassium Chloride Carbon Dioxide BUN Creatinine Glucose POC Glucose 128 H 112 H Hemoglobin A1c Calcium Phosphorus Magnesium AST ALT Alkaline Phosphatase Lactate Dehydrogenase C-Reactive Protein Total Protein Albumin Triglycerides Arterial Blood Glucose 134 H Arterial Blood Ionized Calcium Urine WBC (Auto) U Epithel Cells (Auto) Urine Creatinine Random Vancomycin Heparin-induced Plt Ab Coronavirus (PCR) Crossmatch 03/29/21 03/29/21 03/29/21 04:45 04:45 04:45 WBC 17.5 H RBC 3.15 L Hgb 8.8 L Hct 27.2 L MCH MCHC RDW 17.9 H Plt Count 132 L Lymph % (Auto) [place] # (Auto) Eos # (Auto) Seg Neutrophils % Lymphocytes % (Manual) Eosinophils % (Manual) Basophils % (Manual) Nucleated RBC % Seg Neutrophils # Seg Neutrophils # Man Lymphocytes # (Manual) Monocytes # (Manual) Eosinophils # (Manual) Basophils # (Manual) Percent Retic PT INR Fibrinogen D-Dimer ABG pH POC ABG pCO2 POC ABG pO2 ABG pO2 ABG HCO3 ABG O2 Saturation ABG Base Excess ABG Hemoglobin ABG Oxyhemoglobin ABG Sodium ABG Potassium ABG Chloride ABG Glucose Oxyhemoglobin Carboxyhemoglobin Sodium Potassium Chloride 97.7 L Carbon Dioxide 21 L BUN 78 H Creatinine 9.5 H Glucose 132 H POC Glucose Hemoglobin A1c Calcium Phosphorus Magnesium AST ALT Alkaline Phosphatase Lactate Dehydrogenase C-Reactive Protein Total Protein Albumin 2.2 L Triglycerides 385 H Arterial Blood Glucose Arterial Blood Ionized Calcium Urine WBC (Auto) U Epithel Cells (Auto) Urine Creatinine Random Vancomycin Heparin-induced Plt Ab Coronavirus (PCR) Crossmatch 03/29/21 03/29/21 03/29/21 11:35 16:50 21:06 WBC RBC Hgb Hct MCH MCHC RDW Plt Count Lymph % (Auto) [place] # (Auto) Eos # (Auto) Seg Neutrophils % Lymphocytes % (Manual) Eosinophils % (Manual) Basophils % (Manual) Nucleated RBC % Seg Neutrophils # Seg Neutrophils # Man Lymphocytes # (Manual) Monocytes # (Manual) Eosinophils # (Manual) Basophils # (Manual) Percent Retic PT INR Fibrinogen D-Dimer ABG pH POC ABG pCO2 POC ABG pO2 ABG pO2 64.9 L ABG HCO3 ABG O2 Saturation ABG Base Excess -5.2 L ABG Hemoglobin ABG Oxyhemoglobin ABG Sodium ABG Potassium ABG Chloride ABG Glucose Oxyhemoglobin 85.1 L Carboxyhemoglobin Sodium Potassium Chloride Carbon Dioxide BUN Creatinine Glucose POC Glucose 148 H 133 H Hemoglobin A1c Calcium Phosphorus Magnesium AST ALT Alkaline Phosphatase Lactate Dehydrogenase C-Reactive Protein Total Protein Albumin Triglycerides Arterial Blood Glucose Arterial Blood Ionized Calcium Urine WBC (Auto) U Epithel Cells (Auto) Urine Creatinine Random Vancomycin Heparin-induced Plt Ab Coronavirus (PCR) Crossmatch 03/29/21 03/30/21 03/30/21 Unknown 00:13 04:00 WBC 15.7 H RBC 3.18 L Hgb 8.6 L Hct 27.3 L MCH 27 L MCHC RDW 18.0 H Plt Count 86 L Lymph % (Auto) [place] # (Auto) Eos # (Auto) Seg Neutrophils % Lymphocytes % (Manual) Eosinophils % (Manual) Basophils % (Manual) Nucleated RBC % Seg Neutrophils # Seg Neutrophils # Man Lymphocytes # (Manual) Monocytes # (Manual) Eosinophils # (Manual) Basophils # (Manual) Percent Retic PT INR Fibrinogen D-Dimer ABG pH 7.258 L POC ABG pCO2 POC ABG pO2 ABG pO2 ABG HCO3 ABG O2 Saturation ABG Base Excess -4.9 L ABG Hemoglobin 8.8 L ABG Oxyhemoglobin ABG Sodium ABG Potassium ABG Chloride ABG Glucose Oxyhemoglobin 93.9 L Carboxyhemoglobin Sodium Potassium Chloride Carbon Dioxide BUN Creatinine Glucose POC Glucose 129 H Hemoglobin A1c Calcium Phosphorus Magnesium AST ALT Alkaline Phosphatase Lactate Dehydrogenase C-Reactive Protein Total Protein Albumin Triglycerides Arterial Blood Glucose Arterial Blood Ionized Calcium Urine WBC (Auto) U Epithel Cells (Auto) Urine Creatinine Random Vancomycin Heparin-induced Plt Ab Coronavirus (PCR) Crossmatch 03/30/21 03/30/21 03/30/21 04:00 04:00 06:02 WBC RBC Hgb Hct MCH MCHC RDW Plt Count Lymph % (Auto) [place] # (Auto) Eos # (Auto) Seg Neutrophils % Lymphocytes % (Manual) Eosinophils % (Manual) Basophils % (Manual) Nucleated RBC % Seg Neutrophils # Seg Neutrophils # Man Lymphocytes # (Manual) Monocytes # (Manual) Eosinophils # (Manual) Basophils # (Manual) Percent Retic PT INR Fibrinogen D-Dimer 2607.12 H ABG pH POC ABG pCO2 POC ABG pO2 ABG pO2 ABG HCO3 ABG O2 Saturation ABG Base Excess ABG Hemoglobin ABG Oxyhemoglobin ABG Sodium ABG Potassium ABG Chloride ABG Glucose Oxyhemoglobin Carboxyhemoglobin Sodium 133 L Potassium 5.2 H D Chloride 91.5 L Carbon Dioxide 18 L BUN 101 H Creatinine 10.6 H Glucose 149 H POC Glucose 130 H Hemoglobin A1c Calcium Phosphorus 10.30 H Magnesium AST ALT Alkaline Phosphatase Lactate Dehydrogenase C-Reactive Protein 21.50 H Total Protein Albumin Triglycerides Arterial Blood Glucose Arterial Blood Ionized Calcium Urine WBC (Auto) U Epithel Cells (Auto) Urine Creatinine Random Vancomycin Heparin-induced Plt Ab Coronavirus (PCR) Crossmatch 03/30/21 03/30/21 03/30/21 10:36 11:48 17:20 WBC RBC Hgb Hct MCH MCHC RDW Plt Count Lymph % (Auto) [place] # (Auto) Eos # (Auto) Seg Neutrophils % Lymphocytes % (Manual) Eosinophils % (Manual) Basophils % (Manual) Nucleated RBC % Seg Neutrophils # Seg Neutrophils # Man Lymphocytes # (Manual) Monocytes # (Manual) Eosinophils # (Manual) Basophils # (Manual) Percent Retic PT INR Fibrinogen D-Dimer ABG pH 7.224 L POC ABG pCO2 49.1 H POC ABG pO2 61.5 L ABG pO2 ABG HCO3 ABG O2 Saturation ABG Base Excess ABG Hemoglobin 10.2 L ABG Oxyhemoglobin 86.2 L ABG Sodium 129.6 L ABG Potassium 5.4 H ABG Chloride 96.0 L ABG Glucose 161 H Oxyhemoglobin Carboxyhemoglobin Sodium Potassium Chloride Carbon Dioxide BUN Creatinine Glucose POC Glucose 163 H 130 H Hemoglobin A1c Calcium Phosphorus Magnesium AST ALT Alkaline Phosphatase Lactate Dehydrogenase C-Reactive Protein Total Protein Albumin Triglycerides Arterial Blood Glucose 161 H Arterial Blood Ionized Calcium 4.4 L Urine WBC (Auto) U Epithel Cells (Auto) Urine Creatinine Random Vancomycin Heparin-induced Plt Ab Coronavirus (PCR) Crossmatch 03/30/21 03/31/21 03/31/21 23:49 00:28 05:20 WBC 17.3 H RBC 2.99 L Hgb 8.2 L Hct 25.3 L MCH 27 L MCHC RDW 18.3 H Plt Count 126 L Lymph % (Auto) [place] # (Auto) Eos # (Auto) Seg Neutrophils % Lymphocytes % (Manual) Eosinophils % (Manual) Basophils % (Manual) Nucleated RBC % Seg Neutrophils # Seg Neutrophils # Man Lymphocytes # (Manual) Monocytes # (Manual) Eosinophils # (Manual) Basophils # (Manual) Percent Retic PT INR Fibrinogen D-Dimer ABG pH 7.249 L POC ABG pCO2 POC ABG pO2 77.7 L ABG pO2 ABG HCO3 ABG O2 Saturation ABG Base Excess ABG Hemoglobin 9.0 L ABG Oxyhemoglobin 92.9 L ABG Sodium 130.4 L ABG Potassium 4.7 H ABG Chloride ABG Glucose 166 H Oxyhemoglobin Carboxyhemoglobin 0.4 L Sodium Potassium Chloride Carbon Dioxide BUN Creatinine Glucose POC Glucose 143 H Hemoglobin A1c Calcium Phosphorus Magnesium AST ALT Alkaline Phosphatase Lactate Dehydrogenase C-Reactive Protein Total Protein Albumin Triglycerides Arterial Blood Glucose 166 H Arterial Blood Ionized Calcium 4.3 L Urine WBC (Auto) U Epithel Cells (Auto) Urine Creatinine Random Vancomycin Heparin-induced Plt Ab Coronavirus (PCR) Crossmatch 03/31/21 03/31/21 03/31/21 05:20 06:18 09:44 WBC RBC Hgb Hct MCH MCHC RDW Plt Count Lymph % (Auto) [place] # (Auto) Eos # (Auto) Seg Neutrophils % Lymphocytes % (Manual) Eosinophils % (Manual) Basophils % (Manual) Nucleated RBC % Seg Neutrophils # Seg Neutrophils # Man Lymphocytes # (Manual) Monocytes # (Manual) Eosinophils # (Manual) Basophils # (Manual) Percent Retic PT INR Fibrinogen D-Dimer ABG pH 7.247 L POC ABG pCO2 POC ABG pO2 ABG pO2 ABG HCO3 ABG O2 Saturation 94.4 L ABG Base Excess -5.1 L ABG Hemoglobin 8.2 L ABG Oxyhemoglobin ABG Sodium ABG Potassium ABG Chloride ABG Glucose Oxyhemoglobin 92.4 L Carboxyhemoglobin Sodium Potassium Chloride Carbon Dioxide BUN Creatinine Glucose POC Glucose 155 H Hemoglobin A1c Calcium Phosphorus 8.20 H D Magnesium AST ALT Alkaline Phosphatase Lactate Dehydrogenase C-Reactive Protein Total Protein Albumin Triglycerides Arterial Blood Glucose Arterial Blood Ionized Calcium Urine WBC (Auto) U Epithel Cells (Auto) Urine Creatinine Random Vancomycin Heparin-induced Plt Ab Coronavirus (PCR) Crossmatch 03/31/21 03/31/21 03/31/21 09:49 09:55 09:55 WBC RBC Hgb Hct MCH MCHC RDW Plt Count Lymph % (Auto) [place] # (Auto) Eos # (Auto) Seg Neutrophils % Lymphocytes % (Manual) Eosinophils % (Manual) Basophils % (Manual) Nucleated RBC % Seg Neutrophils # Seg Neutrophils # Man Lymphocytes # (Manual) Monocytes # (Manual) Eosinophils # (Manual) Basophils # (Manual) Percent Retic 4.52 H PT 16.5 H INR 1.20 H Fibrinogen D-Dimer ABG pH POC ABG pCO2 POC ABG pO2 ABG pO2 ABG HCO3 ABG O2 Saturation ABG Base Excess ABG Hemoglobin ABG Oxyhemoglobin ABG Sodium ABG Potassium ABG Chloride ABG Glucose Oxyhemoglobin Carboxyhemoglobin Sodium 133 L Potassium Chloride 92.8 L Carbon Dioxide 20 L BUN 87 H Creatinine 8.9 H Glucose 177 H POC Glucose Hemoglobin A1c Calcium 8.2 L Phosphorus Magnesium AST 169 H ALT Alkaline Phosphatase 187 H Lactate Dehydrogenase C-Reactive Protein Total Protein Albumin 2.3 L Triglycerides Arterial Blood Glucose Arterial Blood Ionized Calcium Urine WBC (Auto) U Epithel Cells (Auto) Urine Creatinine Random Vancomycin Heparin-induced Plt Ab Coronavirus (PCR) Crossmatch 03/31/21 03/31/21 03/31/21 09:55 09:55 11:25 WBC RBC Hgb Hct MCH MCHC RDW Plt Count Lymph % (Auto) [place] # (Auto) Eos # (Auto) Seg Neutrophils % Lymphocytes % (Manual) Eosinophils % (Manual) Basophils % (Manual) Nucleated RBC % Seg Neutrophils # Seg Neutrophils # Man Lymphocytes # (Manual) Monocytes # (Manual) Eosinophils # (Manual) Basophils # (Manual) Percent Retic PT INR Fibrinogen 491 H D-Dimer ABG pH POC ABG pCO2 POC ABG pO2 ABG pO2 ABG HCO3 ABG O2 Saturation ABG Base Excess ABG Hemoglobin ABG Oxyhemoglobin ABG Sodium ABG Potassium ABG Chloride ABG Glucose Oxyhemoglobin Carboxyhemoglobin Sodium Potassium Chloride Carbon Dioxide BUN Creatinine Glucose POC Glucose 178 H Hemoglobin A1c Calcium Phosphorus Magnesium AST ALT Alkaline Phosphatase Lactate Dehydrogenase 509 H C-Reactive Protein Total Protein Albumin Triglycerides Arterial Blood Glucose Arterial Blood Ionized Calcium Urine WBC (Auto) U Epithel Cells (Auto) Urine Creatinine Random Vancomycin Heparin-induced Plt Ab Coronavirus (PCR) Crossmatch 03/31/21 03/31/21 03/31/21 12:30 17:40 21:00 WBC RBC Hgb Hct MCH MCHC RDW Plt Count Lymph % (Auto) [place] # (Auto) Eos # (Auto) Seg Neutrophils % Lymphocytes % (Manual) Eosinophils % (Manual) Basophils % (Manual) Nucleated RBC % Seg Neutrophils # Seg Neutrophils # Man Lymphocytes # (Manual) Monocytes # (Manual) Eosinophils # (Manual) Basophils # (Manual) Percent Retic PT INR Fibrinogen D-Dimer ABG pH 7.235 L 7.216 L POC ABG pCO2 POC ABG pO2 ABG pO2 76.8 L 113.9 H ABG HCO3 ABG O2 Saturation 93.2 L ABG Base Excess -5.3 L -7.3 L ABG Hemoglobin 6.3 L 8.0 L ABG Oxyhemoglobin ABG Sodium ABG Potassium ABG Chloride ABG Glucose Oxyhemoglobin 91.1 L Carboxyhemoglobin Sodium Potassium Chloride Carbon Dioxide BUN Creatinine Glucose POC Glucose 245 H Hemoglobin A1c Calcium Phosphorus Magnesium AST ALT Alkaline Phosphatase Lactate Dehydrogenase C-Reactive Protein Total Protein Albumin Triglycerides Arterial Blood Glucose Arterial Blood Ionized Calcium Urine WBC (Auto) U Epithel Cells (Auto) Urine Creatinine Random Vancomycin Heparin-induced Plt Ab Coronavirus (PCR) Crossmatch 04/01/21 04/01/21 04/01/21 00:11 05:09 08:25 WBC RBC Hgb Hct MCH MCHC RDW Plt Count Lymph % (Auto) [place] # (Auto) Eos # (Auto) Seg Neutrophils % Lymphocytes % (Manual) Eosinophils % (Manual) Basophils % (Manual) Nucleated RBC % Seg Neutrophils # Seg Neutrophils # Man Lymphocytes # (Manual) Monocytes # (Manual) Eosinophils # (Manual) Basophils # (Manual) Percent Retic PT INR Fibrinogen D-Dimer ABG pH 7.225 L POC ABG pCO2 POC ABG pO2 ABG pO2 76.4 L ABG HCO3 ABG O2 Saturation 92.2 L ABG Base Excess -7.6 L ABG Hemoglobin 7.3 L ABG Oxyhemoglobin ABG Sodium ABG Potassium ABG Chloride ABG Glucose Oxyhemoglobin 90.2 L Carboxyhemoglobin Sodium Potassium Chloride Carbon Dioxide BUN Creatinine Glucose POC Glucose 209 H 173 H Hemoglobin A1c Calcium Phosphorus Magnesium AST ALT Alkaline Phosphatase Lactate Dehydrogenase C-Reactive Protein Total Protein Albumin Triglycerides Arterial Blood Glucose Arterial Blood Ionized Calcium Urine WBC (Auto) U Epithel Cells (Auto) Urine Creatinine Random Vancomycin Heparin-induced Plt Ab Coronavirus (PCR) Crossmatch 04/01/21 04/01/21 04/01/21 12:01 12:05 17:55 WBC RBC Hgb Hct MCH MCHC RDW Plt Count Lymph % (Auto) [place] # (Auto) Eos # (Auto) Seg Neutrophils % Lymphocytes % (Manual) Eosinophils % (Manual) Basophils % (Manual) Nucleated RBC % Seg Neutrophils # Seg Neutrophils # Man Lymphocytes # (Manual) Monocytes # (Manual) Eosinophils # (Manual) Basophils # (Manual) Percent Retic PT INR Fibrinogen D-Dimer ABG pH POC ABG pCO2 POC ABG pO2 ABG pO2 ABG HCO3 ABG O2 Saturation ABG Base Excess ABG Hemoglobin ABG Oxyhemoglobin ABG Sodium ABG Potassium ABG Chloride ABG Glucose Oxyhemoglobin Carboxyhemoglobin Sodium Potassium 5.9 H Chloride Carbon Dioxide BUN Creatinine Glucose POC Glucose 202 H 217 H Hemoglobin A1c Calcium Phosphorus Magnesium AST ALT Alkaline Phosphatase Lactate Dehydrogenase C-Reactive Protein Total Protein Albumin Triglycerides Arterial Blood Glucose Arterial Blood Ionized Calcium Urine WBC (Auto) U Epithel Cells (Auto) Urine Creatinine Random Vancomycin Heparin-induced Plt Ab Coronavirus (PCR) Crossmatch 04/01/21 04/01/21 04/01/21 Unknown Unknown 23:59 WBC 27.2 H RBC 3.08 L Hgb 8.4 L Hct 26.0 L MCH 27 L MCHC RDW 18.5 H Plt Count Lymph % (Auto) [place] # (Auto) Eos # (Auto) Seg Neutrophils % Lymphocytes % (Manual) Eosinophils % (Manual) Basophils % (Manual) Nucleated RBC % Seg Neutrophils # Seg Neutrophils # Man Lymphocytes # (Manual) Monocytes # (Manual) Eosinophils # (Manual) Basophils # (Manual) Percent Retic PT INR Fibrinogen D-Dimer ABG pH POC ABG pCO2 POC ABG pO2 ABG pO2 ABG HCO3 ABG O2 Saturation ABG Base Excess ABG Hemoglobin ABG Oxyhemoglobin ABG Sodium ABG Potassium ABG Chloride ABG Glucose Oxyhemoglobin Carboxyhemoglobin Sodium 132 L Potassium 6.6 H* D Chloride 91.3 L Carbon Dioxide 17 L BUN 104 H Creatinine 9.3 H Glucose 199 H POC Glucose 172 H Hemoglobin A1c Calcium 8.3 L Phosphorus Magnesium AST 236 H ALT 93 H Alkaline Phosphatase 191 H Lactate Dehydrogenase C-Reactive Protein Total Protein Albumin 2.4 L Triglycerides Arterial Blood Glucose Arterial Blood Ionized Calcium Urine WBC (Auto) U Epithel Cells (Auto) Urine Creatinine Random Vancomycin Heparin-induced Plt Ab Coronavirus (PCR) Crossmatch 04/02/21 04/02/21 04/02/21 04:00 04:00 05:00 WBC 31.0 H RBC 2.93 L Hgb 8.0 L Hct 24.7 L MCH 27 L MCHC RDW 19.2 H Plt Count 131 L Lymph % (Auto) [place] # (Auto) Eos # (Auto) Seg Neutrophils % Lymphocytes % (Manual) Eosinophils % (Manual) Basophils % (Manual) Nucleated RBC % Seg Neutrophils # Seg Neutrophils # Man Lymphocytes # (Manual) Monocytes # (Manual) Eosinophils # (Manual) Basophils # (Manual) Percent Retic PT 16.0 H INR 1.16 H Fibrinogen D-Dimer ABG pH POC ABG pCO2 POC ABG pO2 ABG pO2 ABG HCO3 ABG O2 Saturation ABG Base Excess ABG Hemoglobin ABG Oxyhemoglobin ABG Sodium ABG Potassium ABG Chloride ABG Glucose Oxyhemoglobin Carboxyhemoglobin Sodium 135 L Potassium 5.3 H Chloride 96.1 L Carbon Dioxide 18 L BUN 80 H Creatinine 6.8 H Glucose 174 H POC Glucose Hemoglobin A1c Calcium 7.7 L Phosphorus Magnesium AST 106 H ALT 60 H Alkaline Phosphatase Lactate Dehydrogenase C-Reactive Protein Total Protein 5.9 L Albumin 3.5 L Triglycerides 579 H Arterial Blood Glucose Arterial Blood Ionized Calcium Urine WBC (Auto) U Epithel Cells (Auto) Urine Creatinine Random Vancomycin Heparin-induced Plt Ab Coronavirus (PCR) Crossmatch 04/02/21 04/02/21 04/02/21 05:09 08:55 11:06 WBC RBC Hgb Hct MCH MCHC RDW Plt Count Lymph % (Auto) [place] # (Auto) Eos # (Auto) Seg Neutrophils % Lymphocytes % (Manual) Eosinophils % (Manual) Basophils % (Manual) Nucleated RBC % Seg Neutrophils # Seg Neutrophils # Man Lymphocytes # (Manual) Monocytes # (Manual) Eosinophils # (Manual) Basophils # (Manual) Percent Retic PT INR Fibrinogen D-Dimer ABG pH 7.188 L POC ABG pCO2 58.3 H POC ABG pO2 132.8 H ABG pO2 ABG HCO3 ABG O2 Saturation ABG Base Excess ABG Hemoglobin 8.4 L ABG Oxyhemoglobin ABG Sodium ABG Potassium 5.0 H ABG Chloride 97.0 L ABG Glucose 156 H Oxyhemoglobin Carboxyhemoglobin 0.4 L Sodium Potassium Chloride Carbon Dioxide BUN Creatinine Glucose POC Glucose 148 H 167 H Hemoglobin A1c Calcium Phosphorus Magnesium AST ALT Alkaline Phosphatase Lactate Dehydrogenase C-Reactive Protein Total Protein Albumin Triglycerides Arterial Blood Glucose 156 H Arterial Blood Ionized Calcium 4.2 L Urine WBC (Auto) U Epithel Cells (Auto) Urine Creatinine Random Vancomycin Heparin-induced Plt Ab Coronavirus (PCR) Crossmatch 04/02/21 04/02/21 04/03/21 17:57 20:40 00:28 WBC RBC Hgb Hct MCH MCHC RDW Plt Count Lymph % (Auto) [place] # (Auto) Eos # (Auto) Seg Neutrophils % Lymphocytes % (Manual) Eosinophils % (Manual) Basophils % (Manual) Nucleated RBC % Seg Neutrophils # Seg Neutrophils # Man Lymphocytes # (Manual) Monocytes # (Manual) Eosinophils # (Manual) Basophils # (Manual) Percent Retic PT INR Fibrinogen D-Dimer ABG pH POC ABG pCO2 POC ABG pO2 ABG pO2 111.9 H ABG HCO3 18.9 L ABG O2 Saturation ABG Base Excess -9.9 L ABG Hemoglobin ABG Oxyhemoglobin ABG Sodium ABG Potassium ABG Chloride ABG Glucose Oxyhemoglobin Carboxyhemoglobin Sodium Potassium Chloride Carbon Dioxide BUN Creatinine Glucose POC Glucose 205 H 217 H Hemoglobin A1c Calcium Phosphorus Magnesium AST ALT Alkaline Phosphatase Lactate Dehydrogenase C-Reactive Protein Total Protein Albumin Triglycerides Arterial Blood Glucose Arterial Blood Ionized Calcium Urine WBC (Auto) U Epithel Cells (Auto) Urine Creatinine Random Vancomycin Heparin-induced Plt Ab Coronavirus (PCR) Crossmatch 04/03/21 04/03/21 04/03/21 03:39 04:30 04:30 WBC 31.1 H RBC 2.78 L Hgb 8.0 L Hct 24.0 L MCH MCHC RDW 19.0 H Plt Count Lymph % (Auto) [place] # (Auto) Eos # (Auto) Seg Neutrophils % Lymphocytes % (Manual) Eosinophils % (Manual) 27.0 H Basophils % (Manual) 2.0 H Nucleated RBC % Seg Neutrophils # Seg Neutrophils # Man 13.7 H Lymphocytes # (Manual) 8.4 H Monocytes # (Manual) Eosinophils # (Manual) 8.4 H Basophils # (Manual) 0.6 H Percent Retic PT INR Fibrinogen D-Dimer ABG pH POC ABG pCO2 POC ABG pO2 ABG pO2 ABG HCO3 ABG O2 Saturation ABG Base Excess ABG Hemoglobin ABG Oxyhemoglobin ABG Sodium ABG Potassium ABG Chloride ABG Glucose Oxyhemoglobin Carboxyhemoglobin Sodium 132 L Potassium 5.8 H Chloride 94.5 L Carbon Dioxide 16 L BUN 97 H Creatinine 7.7 H Glucose 230 H POC Glucose 201 H Hemoglobin A1c Calcium 7.6 L Phosphorus Magnesium AST 47 H ALT Alkaline Phosphatase 146 H Lactate Dehydrogenase C-Reactive Protein Total Protein 5.2 L Albumin 3.4 L Triglycerides Arterial Blood Glucose Arterial Blood Ionized Calcium Urine WBC (Auto) U Epithel Cells (Auto) Urine Creatinine Random Vancomycin Heparin-induced Plt Ab Coronavirus (PCR) Crossmatch 04/03/21 04/03/21 04/03/21 04:30 08:31 11:29 WBC RBC Hgb Hct MCH MCHC RDW Plt Count Lymph % (Auto) [place] # (Auto) Eos # (Auto) Seg Neutrophils % Lymphocytes % (Manual) Eosinophils % (Manual) Basophils % (Manual) Nucleated RBC % Seg Neutrophils # Seg Neutrophils # Man Lymphocytes # (Manual) Monocytes # (Manual) Eosinophils # (Manual) Basophils # (Manual) Percent Retic PT INR Fibrinogen D-Dimer ABG pH 7.195 L* POC ABG pCO2 POC ABG pO2 ABG pO2 102.6 H ABG HCO3 ABG O2 Saturation ABG Base Excess -7.2 L ABG Hemoglobin 8.0 L ABG Oxyhemoglobin ABG Sodium ABG Potassium ABG Chloride ABG Glucose Oxyhemoglobin 94.7 L Carboxyhemoglobin Sodium Potassium Chloride Carbon Dioxide BUN Creatinine Glucose POC Glucose 230 H Hemoglobin A1c Calcium Phosphorus 10.30 H Magnesium AST ALT Alkaline Phosphatase Lactate Dehydrogenase C-Reactive Protein Total Protein Albumin Triglycerides Arterial Blood Glucose Arterial Blood Ionized Calcium Urine WBC (Auto) U Epithel Cells (Auto) Urine Creatinine Random Vancomycin Heparin-induced Plt Ab Coronavirus (PCR) Crossmatch 1104/03/21 04/04/21 16:53 20:45 05:00 WBC 28.8 H RBC 2.64 L Hgb 8.7 L Hct 22.2 L MCH 33 H MCHC 39 H* RDW 18.6 H Plt Count Lymph % (Auto) [place] # (Auto) Eos # (Auto) Seg Neutrophils % Lymphocytes % (Manual) Eosinophils % (Manual) Basophils % (Manual) Nucleated RBC % Seg Neutrophils # Seg Neutrophils # Man Lymphocytes # (Manual) Monocytes # (Manual) Eosinophils # (Manual) Basophils # (Manual) Percent Retic PT INR Fibrinogen D-Dimer ABG pH POC ABG pCO2 POC ABG pO2 ABG pO2 ABG HCO3 ABG O2 Saturation ABG Base Excess ABG Hemoglobin ABG Oxyhemoglobin ABG Sodium ABG Potassium ABG Chloride ABG Glucose Oxyhemoglobin 94.8 L Carboxyhemoglobin Sodium Potassium Chloride Carbon Dioxide BUN Creatinine Glucose POC Glucose 227 H Hemoglobin A1c Calcium Phosphorus Magnesium AST ALT Alkaline Phosphatase Lactate Dehydrogenase C-Reactive Protein Total Protein Albumin Triglycerides Arterial Blood Glucose Arterial Blood Ionized Calcium Urine WBC (Auto) U Epithel Cells (Auto) Urine Creatinine Random Vancomycin Heparin-induced Plt Ab Coronavirus (PCR) Crossmatch 04/04/21 04/04/21 04/04/21 05:29 07:55 09:20 WBC RBC Hgb Hct MCH MCHC RDW Plt Count Lymph % (Auto) [place] # (Auto) Eos # (Auto) Seg Neutrophils % Lymphocytes % (Manual) Eosinophils % (Manual) Basophils % (Manual) Nucleated RBC % Seg Neutrophils # Seg Neutrophils # Man Lymphocytes # (Manual) Monocytes # (Manual) Eosinophils # (Manual) Basophils # (Manual) Percent Retic PT INR Fibrinogen D-Dimer ABG pH POC ABG pCO2 POC ABG pO2 ABG pO2 ABG HCO3 ABG O2 Saturation ABG Base Excess ABG Hemoglobin ABG Oxyhemoglobin ABG Sodium ABG Potassium ABG Chloride ABG Glucose Oxyhemoglobin Carboxyhemoglobin Sodium 133 L Potassium Chloride 91.0 L Carbon Dioxide 20 L BUN 75 H Creatinine 4.7 H Glucose 184 H POC Glucose 133 H Hemoglobin A1c Calcium 7.3 L Phosphorus Magnesium AST < 5 L ALT < 5 L Alkaline Phosphatase 200 H Lactate Dehydrogenase C-Reactive Protein Total Protein 5.6 L Albumin 2.9 L Triglycerides Arterial Blood Glucose Arterial Blood Ionized Calcium Urine WBC (Auto) U Epithel Cells (Auto) Urine Creatinine Random Vancomycin Heparin-induced Plt Ab Coronavirus (PCR) Crossmatch See Detail 04/04/21 04/04/21 04/04/21 12:01 14:06 17:05 WBC RBC Hgb Hct MCH MCHC RDW Plt Count Lymph % (Auto) [place] # (Auto) Eos # (Auto) Seg Neutrophils % Lymphocytes % (Manual) Eosinophils % (Manual) Basophils % (Manual) Nucleated RBC % Seg Neutrophils # Seg Neutrophils # Man Lymphocytes # (Manual) Monocytes # (Manual) Eosinophils # (Manual) Basophils # (Manual) Percent Retic PT INR Fibrinogen D-Dimer ABG pH 7.162 L* POC ABG pCO2 POC ABG pO2 ABG pO2 91.3 H ABG HCO3 ABG O2 Saturation 94.8 L ABG Base Excess -4.0 L ABG Hemoglobin 7.6 L ABG Oxyhemoglobin ABG Sodium ABG Potassium ABG Chloride ABG Glucose Oxyhemoglobin 92.4 L Carboxyhemoglobin Sodium Potassium Chloride Carbon Dioxide BUN Creatinine Glucose POC Glucose 199 H 166 H Hemoglobin A1c Calcium Phosphorus Magnesium AST ALT Alkaline Phosphatase Lactate Dehydrogenase C-Reactive Protein Total Protein Albumin Triglycerides Arterial Blood Glucose Arterial Blood Ionized Calcium Urine WBC (Auto) U Epithel Cells (Auto) Urine Creatinine Random Vancomycin Heparin-induced Plt Ab Coronavirus (PCR) Crossmatch 04/04/21 04/04/21 04/05/21 21:14 23:30 05:20 WBC RBC Hgb Hct MCH MCHC RDW Plt Count Lymph % (Auto) [place] # (Auto) Eos # (Auto) Seg Neutrophils % Lymphocytes % (Manual) Eosinophils % (Manual) Basophils % (Manual) Nucleated RBC % Seg Neutrophils # Seg Neutrophils # Man Lymphocytes # (Manual) Monocytes # (Manual) Eosinophils # (Manual) Basophils # (Manual) Percent Retic PT INR Fibrinogen D-Dimer ABG pH 7.257 L POC ABG pCO2 POC ABG pO2 ABG pO2 73.8 L ABG HCO3 ABG O2 Saturation 91.6 L ABG Base Excess -2.7 L ABG Hemoglobin 8.6 L ABG Oxyhemoglobin ABG Sodium ABG Potassium ABG Chloride ABG Glucose Oxyhemoglobin 89.1 L Carboxyhemoglobin Sodium 131 L Potassium Chloride 91.2 L Carbon Dioxide 17 L BUN 85 H Creatinine 5.1 H Glucose 183 H POC Glucose 158 H Hemoglobin A1c Calcium 7.4 L Phosphorus Magnesium AST ALT Alkaline Phosphatase 190 H Lactate Dehydrogenase 394 H C-Reactive Protein Total Protein 5.8 L Albumin 2.7 L Triglycerides Arterial Blood Glucose Arterial Blood Ionized Calcium Urine WBC (Auto) U Epithel Cells (Auto) Urine Creatinine Random Vancomycin Heparin-induced Plt Ab Coronavirus (PCR) Crossmatch 04/05/21 04/05/21 04/05/21 05:20 05:20 05:24 WBC 30.8 H RBC 2.83 L Hgb 8.4 L Hct 24.4 L MCH MCHC 35 H RDW 18.9 H Plt Count Lymph % (Auto) [place] # (Auto) Eos # (Auto) Seg Neutrophils % Lymphocytes % (Manual) Eosinophils % (Manual) Basophils % (Manual) Nucleated RBC % Seg Neutrophils # Seg Neutrophils # Man Lymphocytes # (Manual) Monocytes # (Manual) Eosinophils # (Manual) Basophils # (Manual) Percent Retic PT INR Fibrinogen D-Dimer ABG pH POC ABG pCO2 POC ABG pO2 ABG pO2 ABG HCO3 ABG O2 Saturation ABG Base Excess ABG Hemoglobin ABG Oxyhemoglobin ABG Sodium ABG Potassium ABG Chloride ABG Glucose Oxyhemoglobin Carboxyhemoglobin Sodium Potassium Chloride Carbon Dioxide BUN Creatinine Glucose POC Glucose 162 H Hemoglobin A1c Calcium Phosphorus 9.40 H Magnesium AST ALT Alkaline Phosphatase Lactate Dehydrogenase C-Reactive Protein Total Protein Albumin Triglycerides Arterial Blood Glucose Arterial Blood Ionized Calcium Urine WBC (Auto) U Epithel Cells (Auto) Urine Creatinine Random Vancomycin Heparin-induced Plt Ab Coronavirus (PCR) Crossmatch 04/05/21 04/05/21 04/05/21 11:31 12:23 21:40 WBC RBC Hgb Hct MCH MCHC RDW Plt Count Lymph % (Auto) [place] # (Auto) Eos # (Auto) Seg Neutrophils % Lymphocytes % (Manual) Eosinophils % (Manual) Basophils % (Manual) Nucleated RBC % Seg Neutrophils # Seg Neutrophils # Man Lymphocytes # (Manual) Monocytes # (Manual) Eosinophils # (Manual) Basophils # (Manual) Percent Retic PT INR Fibrinogen D-Dimer ABG pH 7.325 L POC ABG pCO2 POC ABG pO2 ABG pO2 65.6 L ABG HCO3 ABG O2 Saturation 91.2 L ABG Base Excess ABG Hemoglobin 6.7 L ABG Oxyhemoglobin ABG Sodium ABG Potassium ABG Chloride ABG Glucose Oxyhemoglobin 89.0 L Carboxyhemoglobin Sodium Potassium Chloride Carbon Dioxide BUN Creatinine Glucose POC Glucose 196 H 190 H Hemoglobin A1c Calcium Phosphorus Magnesium AST ALT Alkaline Phosphatase Lactate Dehydrogenase C-Reactive Protein Total Protein Albumin Triglycerides Arterial Blood Glucose Arterial Blood Ionized Calcium Urine WBC (Auto) U Epithel Cells (Auto) Urine Creatinine Random Vancomycin Heparin-induced Plt Ab Coronavirus (PCR) Crossmatch 04/05/21 04/06/21 04/06/21 23:53 05:35 06:00 WBC RBC Hgb Hct MCH MCHC RDW Plt Count Lymph % (Auto) [place] # (Auto) Eos # (Auto) Seg Neutrophils % Lymphocytes % (Manual) Eosinophils % (Manual) Basophils % (Manual) Nucleated RBC % Seg Neutrophils # Seg Neutrophils # Man Lymphocytes # (Manual) Monocytes # (Manual) Eosinophils # (Manual) Basophils # (Manual) Percent Retic PT INR Fibrinogen D-Dimer ABG pH POC ABG pCO2 POC ABG pO2 ABG pO2 ABG HCO3 ABG O2 Saturation ABG Base Excess ABG Hemoglobin ABG Oxyhemoglobin ABG Sodium ABG Potassium ABG Chloride ABG Glucose Oxyhemoglobin Carboxyhemoglobin Sodium 132 L Potassium Chloride 90.7 L Carbon Dioxide 21 L BUN 74 H Creatinine 4.3 H Glucose 156 H POC Glucose 192 H 139 H Hemoglobin A1c Calcium 7.9 L Phosphorus 6.90 H D Magnesium AST < 5 L ALT < 5 L Alkaline Phosphatase 185 H Lactate Dehydrogenase C-Reactive Protein Total Protein 5.7 L Albumin 2.5 L Triglycerides Arterial Blood Glucose Arterial Blood Ionized Calcium Urine WBC (Auto) U Epithel Cells (Auto) Urine Creatinine Random Vancomycin Heparin-induced Plt Ab Coronavirus (PCR) Crossmatch 04/06/21 04/06/21 04/06/21 06:00 11:27 18:01 WBC 26.7 H RBC 2.39 L Hgb 6.9 L Hct 20.1 L MCH MCHC RDW 18.7 H Plt Count Lymph % (Auto) [place] # (Auto) Eos # (Auto) Seg Neutrophils % Lymphocytes % (Manual) Eosinophils % (Manual) Basophils % (Manual) Nucleated RBC % Seg Neutrophils # Seg Neutrophils # Man Lymphocytes # (Manual) Monocytes # (Manual) Eosinophils # (Manual) Basophils # (Manual) Percent Retic PT INR Fibrinogen D-Dimer ABG pH POC ABG pCO2 POC ABG pO2 ABG pO2 ABG HCO3 ABG O2 Saturation ABG Base Excess ABG Hemoglobin ABG Oxyhemoglobin ABG Sodium ABG Potassium ABG Chloride ABG Glucose Oxyhemoglobin Carboxyhemoglobin Sodium Potassium Chloride Carbon Dioxide BUN Creatinine Glucose POC Glucose 166 H 159 H Hemoglobin A1c Calcium Phosphorus Magnesium AST ALT Alkaline Phosphatase Lactate Dehydrogenase C-Reactive Protein Total Protein Albumin Triglycerides Arterial Blood Glucose Arterial Blood Ionized Calcium Urine WBC (Auto) U Epithel Cells (Auto) Urine Creatinine Random Vancomycin Heparin-induced Plt Ab Coronavirus (PCR) Crossmatch 04/06/21 04/06/21 04/06/21 20:50 23:43 Unknown WBC RBC Hgb Hct MCH MCHC RDW Plt Count Lymph % (Auto) [place] # (Auto) Eos # (Auto) Seg Neutrophils % Lymphocytes % (Manual) Eosinophils % (Manual) Basophils % (Manual) Nucleated RBC % Seg Neutrophils # Seg Neutrophils # Man Lymphocytes # (Manual) Monocytes # (Manual) Eosinophils # (Manual) Basophils # (Manual) Percent Retic PT INR Fibrinogen D-Dimer ABG pH 7.303 L POC ABG pCO2 POC ABG pO2 67.9 L ABG pO2 ABG HCO3 ABG O2 Saturation ABG Base Excess ABG Hemoglobin 7.6 L ABG Oxyhemoglobin 90.2 L ABG Sodium 128.6 L ABG Potassium ABG Chloride 97.0 L ABG Glucose 154 H Oxyhemoglobin Carboxyhemoglobin Sodium Potassium Chloride Carbon Dioxide BUN Creatinine Glucose POC Glucose 137 H Hemoglobin A1c Calcium Phosphorus Magnesium AST ALT Alkaline Phosphatase Lactate Dehydrogenase C-Reactive Protein Total Protein Albumin Triglycerides Arterial Blood Glucose 154 H Arterial Blood Ionized Calcium Urine WBC (Auto) 148.0 H U Epithel Cells (Auto) 102.0 H Urine Creatinine Random Vancomycin Heparin-induced Plt Ab Coronavirus (PCR) Crossmatch 04/07/21 04/07/21 04/07/21 03:50 03:50 03:50 WBC 26.7 H RBC 2.66 L Hgb 7.6 L Hct 23.2 L MCH MCHC RDW 18.5 H Plt Count Lymph % (Auto) [place] # (Auto) Eos # (Auto) Seg Neutrophils % Lymphocytes % (Manual) 10.0 L Eosinophils % (Manual) 19.0 H Basophils % (Manual) Nucleated RBC % 2.0 H Seg Neutrophils # Seg Neutrophils # Man 17.9 H Lymphocytes # (Manual) Monocytes # (Manual) 1.1 H Eosinophils # (Manual) 5.1 H Basophils # (Manual) Percent Retic PT INR Fibrinogen D-Dimer 2178 H ABG pH POC ABG pCO2 POC ABG pO2 ABG pO2 ABG HCO3 ABG O2 Saturation ABG Base Excess ABG Hemoglobin ABG Oxyhemoglobin ABG Sodium ABG Potassium ABG Chloride ABG Glucose Oxyhemoglobin Carboxyhemoglobin Sodium 130 L Potassium Chloride 91.1 L Carbon Dioxide 19 L BUN 92 H Creatinine 4.2 H Glucose 213 H POC Glucose Hemoglobin A1c Calcium 7.8 L Phosphorus Magnesium AST ALT Alkaline Phosphatase Lactate Dehydrogenase C-Reactive Protein Total Protein Albumin Triglycerides Arterial Blood Glucose Arterial Blood Ionized Calcium Urine WBC (Auto) U Epithel Cells (Auto) Urine Creatinine Random Vancomycin Heparin-induced Plt Ab Coronavirus (PCR) Crossmatch 04/07/21 04/07/21 04/07/21 04:00 05:42 11:10 WBC RBC Hgb Hct MCH MCHC RDW Plt Count Lymph % (Auto) [place] # (Auto) Eos # (Auto) Seg Neutrophils % Lymphocytes % (Manual) Eosinophils % (Manual) Basophils % (Manual) Nucleated RBC % Seg Neutrophils # Seg Neutrophils # Man Lymphocytes # (Manual) Monocytes # (Manual) Eosinophils # (Manual) Basophils # (Manual) Percent Retic PT INR Fibrinogen D-Dimer ABG pH POC ABG pCO2 POC ABG pO2 ABG pO2 ABG HCO3 ABG O2 Saturation ABG Base Excess ABG Hemoglobin ABG Oxyhemoglobin ABG Sodium ABG Potassium ABG Chloride ABG Glucose Oxyhemoglobin Carboxyhemoglobin Sodium 129 L Potassium 5.1 H Chloride 89.6 L Carbon Dioxide 18 L BUN 94 H Creatinine 4.2 H Glucose 213 H POC Glucose 177 H 136 H Hemoglobin A1c Calcium 7.9 L Phosphorus Magnesium AST ALT Alkaline Phosphatase 167 H Lactate Dehydrogenase C-Reactive Protein Total Protein Albumin 2.8 L Triglycerides Arterial Blood Glucose Arterial Blood Ionized Calcium Urine WBC (Auto) U Epithel Cells (Auto) Urine Creatinine Random Vancomycin Heparin-induced Plt Ab Coronavirus (PCR) Crossmatch 04/07/21 04/07/21 04/08/21 16:19 21:30 02:32 WBC RBC Hgb Hct MCH MCHC RDW Plt Count Lymph % (Auto) [place] # (Auto) Eos # (Auto) Seg Neutrophils % Lymphocytes % (Manual) Eosinophils % (Manual) Basophils % (Manual) Nucleated RBC % Seg Neutrophils # Seg Neutrophils # Man Lymphocytes # (Manual) Monocytes # (Manual) Eosinophils # (Manual) Basophils # (Manual) Percent Retic PT INR Fibrinogen D-Dimer ABG pH 7.209 L POC ABG pCO2 64.8 H POC ABG pO2 ABG pO2 ABG HCO3 ABG O2 Saturation ABG Base Excess ABG Hemoglobin 7.9 L ABG Oxyhemoglobin 93.8 L ABG Sodium 128.8 L ABG Potassium 4.6 H ABG Chloride 97.0 L ABG Glucose 170 H Oxyhemoglobin Carboxyhemoglobin 1.6 H Sodium Potassium Chloride Carbon Dioxide BUN Creatinine Glucose POC Glucose 155 H 141 H Hemoglobin A1c Calcium Phosphorus Magnesium AST ALT Alkaline Phosphatase Lactate Dehydrogenase C-Reactive Protein Total Protein Albumin Triglycerides Arterial Blood Glucose 170 H Arterial Blood Ionized Calcium 4.2 L Urine WBC (Auto) U Epithel Cells (Auto) Urine Creatinine Random Vancomycin Heparin-induced Plt Ab Coronavirus (PCR) Crossmatch 04/08/21 04/08/21 04/08/21 04:00 04:40 04:40 WBC 23.7 H RBC 2.51 L Hgb 6.9 L Hct 22.1 L MCH 27 L MCHC RDW 18.4 H Plt Count Lymph % (Auto) [place] # (Auto) Eos # (Auto) Seg Neutrophils % Lymphocytes % (Manual) Eosinophils % (Manual) Basophils % (Manual) Nucleated RBC % Seg Neutrophils # Seg Neutrophils # Man Lymphocytes # (Manual) Monocytes # (Manual) Eosinophils # (Manual) Basophils # (Manual) Percent Retic PT INR Fibrinogen D-Dimer 2696.79 H ABG pH POC ABG pCO2 POC ABG pO2 ABG pO2 ABG HCO3 ABG O2 Saturation ABG Base Excess ABG Hemoglobin ABG Oxyhemoglobin ABG Sodium ABG Potassium ABG Chloride ABG Glucose Oxyhemoglobin Carboxyhemoglobin Sodium 133 L Potassium 5.5 H Chloride 93.5 L Carbon Dioxide BUN 78 H Creatinine 3.5 H Glucose 171 H POC Glucose Hemoglobin A1c Calcium 8.1 L Phosphorus 9.30 H Magnesium AST ALT Alkaline Phosphatase Lactate Dehydrogenase C-Reactive Protein 26.10 H Total Protein Albumin Triglycerides 487 H Arterial Blood Glucose Arterial Blood Ionized Calcium Urine WBC (Auto) U Epithel Cells (Auto) Urine Creatinine Random Vancomycin Heparin-induced Plt Ab Coronavirus (PCR) Crossmatch 04/08/21 04/08/21 04/08/21 09:55 11:37 13:55 WBC RBC Hgb Hct MCH MCHC RDW Plt Count Lymph % (Auto) [place] # (Auto) Eos # (Auto) Seg Neutrophils % Lymphocytes % (Manual) Eosinophils % (Manual) Basophils % (Manual) Nucleated RBC % Seg Neutrophils # Seg Neutrophils # Man Lymphocytes # (Manual) Monocytes # (Manual) Eosinophils # (Manual) Basophils # (Manual) Percent Retic PT INR Fibrinogen D-Dimer ABG pH 7.114 L* POC ABG pCO2 POC ABG pO2 ABG pO2 75.9 L ABG HCO3 26.2 H ABG O2 Saturation 90.6 L ABG Base Excess -3.6 L ABG Hemoglobin 8.2 L ABG Oxyhemoglobin ABG Sodium ABG Potassium ABG Chloride ABG Glucose Oxyhemoglobin 88.0 L Carboxyhemoglobin Sodium Potassium Chloride Carbon Dioxide BUN Creatinine Glucose POC Glucose 156 H Hemoglobin A1c Calcium Phosphorus Magnesium AST ALT Alkaline Phosphatase Lactate Dehydrogenase C-Reactive Protein Total Protein Albumin Triglycerides Arterial Blood Glucose Arterial Blood Ionized Calcium Urine WBC (Auto) U Epithel Cells (Auto) Urine Creatinine Random Vancomycin Heparin-induced Plt Ab Coronavirus (PCR) Crossmatch See Detail 04/08/21 04/08/21 04/08/21 17:04 20:53 23:56 WBC RBC Hgb Hct MCH MCHC RDW Plt Count Lymph % (Auto) [place] # (Auto) Eos # (Auto) Seg Neutrophils % Lymphocytes % (Manual) Eosinophils % (Manual) Basophils % (Manual) Nucleated RBC % Seg Neutrophils # Seg Neutrophils # Man Lymphocytes # (Manual) Monocytes # (Manual) Eosinophils # (Manual) Basophils # (Manual) Percent Retic PT INR Fibrinogen D-Dimer ABG pH 7.207 L POC ABG pCO2 49.8 H POC ABG pO2 ABG pO2 ABG HCO3 ABG O2 Saturation ABG Base Excess ABG Hemoglobin 7.6 L ABG Oxyhemoglobin ABG Sodium 127.3 L ABG Potassium 5.7 H ABG Chloride 96.0 L ABG Glucose 185 H Oxyhemoglobin Carboxyhemoglobin Sodium Potassium Chloride Carbon Dioxide BUN Creatinine Glucose POC Glucose 178 H 189 H Hemoglobin A1c Calcium Phosphorus Magnesium AST ALT Alkaline Phosphatase Lactate Dehydrogenase C-Reactive Protein Total Protein Albumin Triglycerides Arterial Blood Glucose 185 H Arterial Blood Ionized Calcium 4.3 L Urine WBC (Auto) U Epithel Cells (Auto) Urine Creatinine Random Vancomycin Heparin-induced Plt Ab Coronavirus (PCR) Crossmatch 04/09/21 04/09/21 04/09/21 04:00 04:00 05:24 WBC 21.9 H RBC 2.70 L Hgb 7.8 L Hct 24.1 L MCH MCHC RDW 18.3 H Plt Count Lymph % (Auto) [place] # (Auto) Eos # (Auto) Seg Neutrophils % Lymphocytes % (Manual) Eosinophils % (Manual) Basophils % (Manual) Nucleated RBC % Seg Neutrophils # Seg Neutrophils # Man Lymphocytes # (Manual) Monocytes # (Manual) Eosinophils # (Manual) Basophils # (Manual) Percent Retic PT INR Fibrinogen D-Dimer ABG pH POC ABG pCO2 POC ABG pO2 ABG pO2 ABG HCO3 ABG O2 Saturation ABG Base Excess ABG Hemoglobin ABG Oxyhemoglobin ABG Sodium ABG Potassium ABG Chloride ABG Glucose Oxyhemoglobin Carboxyhemoglobin Sodium 131 L Potassium 6.3 H* Chloride 93.0 L Carbon Dioxide 19 L BUN 98 H Creatinine 4.6 H Glucose 208 H POC Glucose 191 H Hemoglobin A1c Calcium 8.1 L Phosphorus Magnesium AST ALT Alkaline Phosphatase Lactate Dehydrogenase C-Reactive Protein Total Protein Albumin Triglycerides Arterial Blood Glucose Arterial Blood Ionized Calcium Urine WBC (Auto) U Epithel Cells (Auto) Urine Creatinine Random Vancomycin Heparin-induced Plt Ab Coronavirus (PCR) Crossmatch 04/09/21 04/09/21 04/09/21 12:42 16:59 21:00 WBC RBC Hgb Hct MCH MCHC RDW Plt Count Lymph % (Auto) [place] # (Auto) Eos # (Auto) Seg Neutrophils % Lymphocytes % (Manual) Eosinophils % (Manual) Basophils % (Manual) Nucleated RBC % Seg Neutrophils # Seg Neutrophils # Man Lymphocytes # (Manual) Monocytes # (Manual) Eosinophils # (Manual) Basophils # (Manual) Percent Retic PT INR Fibrinogen D-Dimer ABG pH 7.192 L POC ABG pCO2 63.4 H POC ABG pO2 ABG pO2 ABG HCO3 ABG O2 Saturation ABG Base Excess ABG Hemoglobin 8.7 L ABG Oxyhemoglobin 92.9 L ABG Sodium 135.1 L ABG Potassium ABG Chloride ABG Glucose 208 H Oxyhemoglobin Carboxyhemoglobin Sodium Potassium Chloride Carbon Dioxide BUN Creatinine Glucose POC Glucose 198 H 218 H Hemoglobin A1c Calcium Phosphorus Magnesium AST ALT Alkaline Phosphatase Lactate Dehydrogenase C-Reactive Protein Total Protein Albumin Triglycerides Arterial Blood Glucose 208 H Arterial Blood Ionized Calcium Urine WBC (Auto) U Epithel Cells (Auto) Urine Creatinine Random Vancomycin Heparin-induced Plt Ab Coronavirus (PCR) Crossmatch 04/09/21 04/10/21 04/10/21 23:31 04:45 04:45 WBC 18.0 H RBC 2.65 L Hgb 7.4 L Hct 23.3 L MCH MCHC RDW 18.5 H Plt Count Lymph % (Auto) [place] # (Auto) Eos # (Auto) Seg Neutrophils % Lymphocytes % (Manual) Eosinophils % (Manual) Basophils % (Manual) Nucleated RBC % Seg Neutrophils # Seg Neutrophils # Man Lymphocytes # (Manual) Monocytes # (Manual) Eosinophils # (Manual) Basophils # (Manual) Percent Retic PT INR Fibrinogen D-Dimer ABG pH POC ABG pCO2 POC ABG pO2 ABG pO2 ABG HCO3 ABG O2 Saturation ABG Base Excess ABG Hemoglobin ABG Oxyhemoglobin ABG Sodium ABG Potassium ABG Chloride ABG Glucose Oxyhemoglobin Carboxyhemoglobin Sodium Potassium 5.5 H Chloride Carbon Dioxide 21 L BUN 83 H Creatinine 3.4 H Glucose 211 H POC Glucose 162 H Hemoglobin A1c Calcium Phosphorus Magnesium AST ALT Alkaline Phosphatase Lactate Dehydrogenase C-Reactive Protein Total Protein Albumin Triglycerides Arterial Blood Glucose Arterial Blood Ionized Calcium Urine WBC (Auto) U Epithel Cells (Auto) Urine Creatinine Random Vancomycin Heparin-induced Plt Ab Coronavirus (PCR) Crossmatch 04/10/21 04/10/21 04/10/21 05:01 11:58 17:42 WBC RBC Hgb Hct MCH MCHC RDW Plt Count Lymph % (Auto) [place] # (Auto) Eos # (Auto) Seg Neutrophils % Lymphocytes % (Manual) Eosinophils % (Manual) Basophils % (Manual) Nucleated RBC % Seg Neutrophils # Seg Neutrophils # Man Lymphocytes # (Manual) Monocytes # (Manual) Eosinophils # (Manual) Basophils # (Manual) Percent Retic PT INR Fibrinogen D-Dimer ABG pH POC ABG pCO2 POC ABG pO2 ABG pO2 ABG HCO3 ABG O2 Saturation ABG Base Excess ABG Hemoglobin ABG Oxyhemoglobin ABG Sodium ABG Potassium ABG Chloride ABG Glucose Oxyhemoglobin Carboxyhemoglobin Sodium Potassium Chloride Carbon Dioxide BUN Creatinine Glucose POC Glucose 183 H 136 H 166 H Hemoglobin A1c Calcium Phosphorus Magnesium AST ALT Alkaline Phosphatase Lactate Dehydrogenase C-Reactive Protein Total Protein Albumin Triglycerides Arterial Blood Glucose Arterial Blood Ionized Calcium Urine WBC (Auto) U Epithel Cells (Auto) Urine Creatinine Random Vancomycin Heparin-induced Plt Ab Coronavirus (PCR) Crossmatch 04/11/21 04/11/21 04/11/21 00:02 04:15 04:15 WBC 16.3 H RBC 2.53 L Hgb 7.0 L Hct 22.6 L MCH MCHC RDW 18.4 H Plt Count Lymph % (Auto) [place] # (Auto) Eos # (Auto) Seg Neutrophils % Lymphocytes % (Manual) Eosinophils % (Manual) Basophils % (Manual) Nucleated RBC % Seg Neutrophils # Seg Neutrophils # Man Lymphocytes # (Manual) Monocytes # (Manual) Eosinophils # (Manual) Basophils # (Manual) Percent Retic PT INR Fibrinogen D-Dimer ABG pH POC ABG pCO2 POC ABG pO2 ABG pO2 ABG HCO3 ABG O2 Saturation ABG Base Excess ABG Hemoglobin ABG Oxyhemoglobin ABG Sodium ABG Potassium ABG Chloride ABG Glucose Oxyhemoglobin Carboxyhemoglobin Sodium Potassium Chloride Carbon Dioxide BUN 71 H Creatinine 3.1 H Glucose 183 H POC Glucose 155 H Hemoglobin A1c Calcium Phosphorus Magnesium AST ALT Alkaline Phosphatase Lactate Dehydrogenase C-Reactive Protein Total Protein Albumin Triglycerides 406 H Arterial Blood Glucose Arterial Blood Ionized Calcium Urine WBC (Auto) U Epithel Cells (Auto) Urine Creatinine Random Vancomycin Heparin-induced Plt Ab Coronavirus (PCR) Crossmatch 04/11/21 04/11/21 04/11/21 05:46 11:34 11:50 WBC RBC Hgb 6.7 L Hct 20.8 L MCH MCHC RDW Plt Count Lymph % (Auto) [place] # (Auto) Eos # (Auto) Seg Neutrophils % Lymphocytes % (Manual) Eosinophils % (Manual) Basophils % (Manual) Nucleated RBC % Seg Neutrophils # Seg Neutrophils # Man Lymphocytes # (Manual) Monocytes # (Manual) Eosinophils # (Manual) Basophils # (Manual) Percent Retic PT INR Fibrinogen D-Dimer ABG pH POC ABG pCO2 POC ABG pO2 ABG pO2 ABG HCO3 ABG O2 Saturation ABG Base Excess ABG Hemoglobin ABG Oxyhemoglobin ABG Sodium ABG Potassium ABG Chloride ABG Glucose Oxyhemoglobin Carboxyhemoglobin Sodium Potassium Chloride Carbon Dioxide BUN Creatinine Glucose POC Glucose 157 H 132 H Hemoglobin A1c Calcium Phosphorus Magnesium AST ALT Alkaline Phosphatase Lactate Dehydrogenase C-Reactive Protein Total Protein Albumin Triglycerides Arterial Blood Glucose Arterial Blood Ionized Calcium Urine WBC (Auto) U Epithel Cells (Auto) Urine Creatinine Random Vancomycin Heparin-induced Plt Ab Coronavirus (PCR) Crossmatch 04/11/21 04/11/21 04/11/21 13:39 17:49 17:50 WBC RBC Hgb 6.5 L Hct 21.4 L MCH MCHC RDW Plt Count Lymph % (Auto) [place] # (Auto) Eos # (Auto) Seg Neutrophils % Lymphocytes % (Manual) Eosinophils % (Manual) Basophils % (Manual) Nucleated RBC % Seg Neutrophils # Seg Neutrophils # Man Lymphocytes # (Manual) Monocytes # (Manual) Eosinophils # (Manual) Basophils # (Manual) Percent Retic PT INR Fibrinogen D-Dimer ABG pH POC ABG pCO2 POC ABG pO2 ABG pO2 ABG HCO3 ABG O2 Saturation ABG Base Excess ABG Hemoglobin ABG Oxyhemoglobin ABG Sodium ABG Potassium ABG Chloride ABG Glucose Oxyhemoglobin Carboxyhemoglobin Sodium Potassium Chloride Carbon Dioxide BUN Creatinine Glucose POC Glucose 136 H Hemoglobin A1c Calcium Phosphorus Magnesium AST ALT Alkaline Phosphatase Lactate Dehydrogenase C-Reactive Protein Total Protein Albumin Triglycerides Arterial Blood Glucose Arterial Blood Ionized Calcium Urine WBC (Auto) U Epithel Cells (Auto) Urine Creatinine Random Vancomycin Heparin-induced Plt Ab Coronavirus (PCR) Crossmatch See Detail 04/12/21 04/12/21 04/12/21 00:25 00:29 02:52 WBC RBC Hgb 7.4 L Hct 23.5 L MCH MCHC RDW Plt Count Lymph % (Auto) [place] # (Auto) Eos # (Auto) Seg Neutrophils % Lymphocytes % (Manual) Eosinophils % (Manual) Basophils % (Manual) Nucleated RBC % Seg Neutrophils # Seg Neutrophils # Man Lymphocytes # (Manual) Monocytes # (Manual) Eosinophils # (Manual) Basophils # (Manual) Percent Retic PT INR Fibrinogen D-Dimer ABG pH 7.253 L POC ABG pCO2 POC ABG pO2 ABG pO2 79.6 L ABG HCO3 ABG O2 Saturation 94.1 L ABG Base Excess -3.6 L ABG Hemoglobin 8.1 L ABG Oxyhemoglobin ABG Sodium ABG Potassium ABG Chloride ABG Glucose Oxyhemoglobin 93.6 L Carboxyhemoglobin Sodium Potassium Chloride Carbon Dioxide BUN Creatinine Glucose POC Glucose 125 H Hemoglobin A1c Calcium Phosphorus Magnesium AST ALT Alkaline Phosphatase Lactate Dehydrogenase C-Reactive Protein Total Protein Albumin Triglycerides Arterial Blood Glucose Arterial Blood Ionized Calcium Urine WBC (Auto) U Epithel Cells (Auto) Urine Creatinine Random Vancomycin Heparin-induced Plt Ab Coronavirus (PCR) Crossmatch 04/12/21 04/12/21 04/12/21 04:30 04:30 05:41 WBC 17.5 H RBC 2.68 L Hgb 7.6 L Hct 24.0 L MCH MCHC RDW 18.0 H Plt Count Lymph % (Auto) [place] # (Auto) Eos # (Auto) Seg Neutrophils % Lymphocytes % (Manual) Eosinophils % (Manual) Basophils % (Manual) Nucleated RBC % Seg Neutrophils # Seg Neutrophils # Man Lymphocytes # (Manual) Monocytes # (Manual) Eosinophils # (Manual) Basophils # (Manual) Percent Retic PT INR Fibrinogen D-Dimer ABG pH POC ABG pCO2 POC ABG pO2 ABG pO2 ABG HCO3 ABG O2 Saturation ABG Base Excess ABG Hemoglobin ABG Oxyhemoglobin ABG Sodium ABG Potassium ABG Chloride ABG Glucose Oxyhemoglobin Carboxyhemoglobin Sodium Potassium Chloride Carbon Dioxide BUN 87 H Creatinine 4.5 H Glucose 136 H POC Glucose 115 H Hemoglobin A1c Calcium Phosphorus 6.50 H Magnesium AST ALT Alkaline Phosphatase Lactate Dehydrogenase C-Reactive Protein Total Protein Albumin Triglycerides Arterial Blood Glucose Arterial Blood Ionized Calcium Urine WBC (Auto) U Epithel Cells (Auto) Urine Creatinine Random Vancomycin Heparin-induced Plt Ab Coronavirus (PCR) Crossmatch 04/12/21 04/12/21 04/13/21 11:57 17:19 00:24 WBC RBC Hgb Hct MCH MCHC RDW Plt Count Lymph % (Auto) [place] # (Auto) Eos # (Auto) Seg Neutrophils % Lymphocytes % (Manual) Eosinophils % (Manual) Basophils % (Manual) Nucleated RBC % Seg Neutrophils # Seg Neutrophils # Man Lymphocytes # (Manual) Monocytes # (Manual) Eosinophils # (Manual) Basophils # (Manual) Percent Retic PT INR Fibrinogen D-Dimer ABG pH POC ABG pCO2 POC ABG pO2 ABG pO2 ABG HCO3 ABG O2 Saturation ABG Base Excess ABG Hemoglobin ABG Oxyhemoglobin ABG Sodium ABG Potassium ABG Chloride ABG Glucose Oxyhemoglobin Carboxyhemoglobin Sodium Potassium Chloride Carbon Dioxide BUN Creatinine Glucose POC Glucose 137 H 177 H 188 H Hemoglobin A1c Calcium Phosphorus Magnesium AST ALT Alkaline Phosphatase Lactate Dehydrogenase C-Reactive Protein Total Protein Albumin Triglycerides Arterial Blood Glucose Arterial Blood Ionized Calcium Urine WBC (Auto) U Epithel Cells (Auto) Urine Creatinine Random Vancomycin Heparin-induced Plt Ab Coronavirus (PCR) Crossmatch 04/13/21 04/13/21 04/13/21 03:52 04:44 04:44 WBC 13.1 H RBC 2.57 L Hgb 7.3 L Hct 23.2 L MCH MCHC RDW 17.6 H Plt Count 73 L Lymph % (Auto) [place] # (Auto) Eos # (Auto) Seg Neutrophils % Lymphocytes % (Manual) Eosinophils % (Manual) Basophils % (Manual) Nucleated RBC % Seg Neutrophils # Seg Neutrophils # Man Lymphocytes # (Manual) Monocytes # (Manual) Eosinophils # (Manual) Basophils # (Manual) Percent Retic PT 16.0 H INR 1.16 H Fibrinogen D-Dimer ABG pH 7.195 L* POC ABG pCO2 POC ABG pO2 ABG pO2 98.9 H ABG HCO3 ABG O2 Saturation ABG Base Excess -2.9 L ABG Hemoglobin 7.4 L ABG Oxyhemoglobin ABG Sodium ABG Potassium ABG Chloride ABG Glucose Oxyhemoglobin 94.3 L Carboxyhemoglobin Sodium Potassium Chloride Carbon Dioxide BUN Creatinine Glucose POC Glucose Hemoglobin A1c Calcium Phosphorus Magnesium AST ALT Alkaline Phosphatase Lactate Dehydrogenase C-Reactive Protein Total Protein Albumin Triglycerides Arterial Blood Glucose Arterial Blood Ionized Calcium Urine WBC (Auto) U Epithel Cells (Auto) Urine Creatinine Random Vancomycin Heparin-induced Plt Ab Coronavirus (PCR) Crossmatch 04/13/21 04/13/21 04/13/21 04:44 05:26 11:32 WBC RBC Hgb Hct MCH MCHC RDW Plt Count Lymph % (Auto) [place] # (Auto) Eos # (Auto) Seg Neutrophils % Lymphocytes % (Manual) Eosinophils % (Manual) Basophils % (Manual) Nucleated RBC % Seg Neutrophils # Seg Neutrophils # Man Lymphocytes # (Manual) Monocytes # (Manual) Eosinophils # (Manual) Basophils # (Manual) Percent Retic PT INR Fibrinogen D-Dimer ABG pH POC ABG pCO2 POC ABG pO2 ABG pO2 ABG HCO3 ABG O2 Saturation ABG Base Excess ABG Hemoglobin ABG Oxyhemoglobin ABG Sodium ABG Potassium ABG Chloride ABG Glucose Oxyhemoglobin Carboxyhemoglobin Sodium Potassium Chloride Carbon Dioxide BUN 75 H Creatinine 3.8 H Glucose 183 H POC Glucose 163 H 169 H Hemoglobin A1c Calcium Phosphorus 6.80 H Magnesium AST ALT Alkaline Phosphatase Lactate Dehydrogenase C-Reactive Protein Total Protein Albumin Triglycerides Arterial Blood Glucose Arterial Blood Ionized Calcium Urine WBC (Auto) U Epithel Cells (Auto) Urine Creatinine Random Vancomycin Heparin-induced Plt Ab Coronavirus (PCR) Crossmatch 04/13/21 04/13/21 04/13/21 17:28 21:00 23:28 WBC RBC Hgb Hct MCH MCHC RDW Plt Count Lymph % (Auto) [place] # (Auto) Eos # (Auto) Seg Neutrophils % Lymphocytes % (Manual) Eosinophils % (Manual) Basophils % (Manual) Nucleated RBC % Seg Neutrophils # Seg Neutrophils # Man Lymphocytes # (Manual) Monocytes # (Manual) Eosinophils # (Manual) Basophils # (Manual) Percent Retic PT INR Fibrinogen D-Dimer ABG pH POC ABG pCO2 48.6 H POC ABG pO2 ABG pO2 ABG HCO3 ABG O2 Saturation ABG Base Excess ABG Hemoglobin 8.3 L ABG Oxyhemoglobin ABG Sodium 134.6 L ABG Potassium ABG Chloride ABG Glucose 243 H Oxyhemoglobin Carboxyhemoglobin 0.4 L Sodium Potassium Chloride Carbon Dioxide BUN Creatinine Glucose POC Glucose 174 H 207 H Hemoglobin A1c Calcium Phosphorus Magnesium AST ALT Alkaline Phosphatase Lactate Dehydrogenase C-Reactive Protein Total Protein Albumin Triglycerides Arterial Blood Glucose 243 H Arterial Blood Ionized Calcium Urine WBC (Auto) U Epithel Cells (Auto) Urine Creatinine Random Vancomycin Heparin-induced Plt Ab Coronavirus (PCR) Crossmatch 04/14/21 04/14/21 04/14/21 04:43 04:43 05:28 WBC 11.8 H RBC 2.58 L Hgb 7.5 L Hct 23.4 L MCH MCHC RDW 17.1 H Plt Count 45 L Lymph % (Auto) [place] # (Auto) Eos # (Auto) Seg Neutrophils % Lymphocytes % (Manual) Eosinophils % (Manual) Basophils % (Manual) Nucleated RBC % Seg Neutrophils # Seg Neutrophils # Man Lymphocytes # (Manual) Monocytes # (Manual) Eosinophils # (Manual) Basophils # (Manual) Percent Retic PT INR Fibrinogen D-Dimer ABG pH POC ABG pCO2 POC ABG pO2 ABG pO2 ABG HCO3 ABG O2 Saturation ABG Base Excess ABG Hemoglobin ABG Oxyhemoglobin ABG Sodium ABG Potassium ABG Chloride ABG Glucose Oxyhemoglobin Carboxyhemoglobin Sodium Potassium Chloride Carbon Dioxide BUN 74 H Creatinine 3.1 H Glucose 220 H POC Glucose 200 H Hemoglobin A1c Calcium Phosphorus Magnesium AST ALT Alkaline Phosphatase Lactate Dehydrogenase C-Reactive Protein Total Protein Albumin Triglycerides Arterial Blood Glucose Arterial Blood Ionized Calcium Urine WBC (Auto) U Epithel Cells (Auto) Urine Creatinine Random Vancomycin Heparin-induced Plt Ab Coronavirus (PCR) Crossmatch 04/14/21 04/14/21 04/14/21 09:45 11:10 16:20 WBC RBC Hgb Hct MCH MCHC RDW Plt Count Lymph % (Auto) [place] # (Auto) Eos # (Auto) Seg Neutrophils % Lymphocytes % (Manual) Eosinophils % (Manual) Basophils % (Manual) Nucleated RBC % Seg Neutrophils # Seg Neutrophils # Man Lymphocytes # (Manual) Monocytes # (Manual) Eosinophils # (Manual) Basophils # (Manual) Percent Retic PT INR Fibrinogen D-Dimer ABG pH POC ABG pCO2 POC ABG pO2 ABG pO2 ABG HCO3 ABG O2 Saturation ABG Base Excess ABG Hemoglobin ABG Oxyhemoglobin ABG Sodium ABG Potassium ABG Chloride ABG Glucose Oxyhemoglobin Carboxyhemoglobin Sodium Potassium Chloride Carbon Dioxide BUN Creatinine Glucose POC Glucose 160 H 168 H Hemoglobin A1c Calcium Phosphorus Magnesium AST ALT Alkaline Phosphatase Lactate Dehydrogenase C-Reactive Protein Total Protein Albumin Triglycerides Arterial Blood Glucose Arterial Blood Ionized Calcium Urine WBC (Auto) U Epithel Cells (Auto) Urine Creatinine Random Vancomycin Heparin-induced Plt Ab Positive H Coronavirus (PCR) Crossmatch 04/14/21 04/14/21 04/15/21 21:00 23:53 08:20 WBC RBC Hgb Hct MCH MCHC RDW Plt Count Lymph % (Auto) [place] # (Auto) Eos # (Auto) Seg Neutrophils % Lymphocytes % (Manual) Eosinophils % (Manual) Basophils % (Manual) Nucleated RBC % Seg Neutrophils # Seg Neutrophils # Man Lymphocytes # (Manual) Monocytes # (Manual) Eosinophils # (Manual) Basophils # (Manual) Percent Retic PT INR Fibrinogen D-Dimer ABG pH 7.207 L 7.305 L POC ABG pCO2 67.6 H 48.3 H POC ABG pO2 143.7 H ABG pO2 ABG HCO3 ABG O2 Saturation ABG Base Excess ABG Hemoglobin 7.6 L 7.5 L ABG Oxyhemoglobin ABG Sodium 133.8 L 134.1 L ABG Potassium ABG Chloride ABG Glucose 158 H 146 H Oxyhemoglobin Carboxyhemoglobin Sodium Potassium Chloride Carbon Dioxide BUN Creatinine Glucose POC Glucose 147 H Hemoglobin A1c Calcium Phosphorus Magnesium AST ALT Alkaline Phosphatase Lactate Dehydrogenase C-Reactive Protein Total Protein Albumin Triglycerides Arterial Blood Glucose 158 H 146 H Arterial Blood Ionized Calcium Urine WBC (Auto) U Epithel Cells (Auto) Urine Creatinine Random Vancomycin Heparin-induced Plt Ab Coronavirus (PCR) Crossmatch 04/15/21 04/15/21 04/15/21 11:10 12:10 12:10 WBC RBC Hgb Hct MCH MCHC RDW Plt Count Lymph % (Auto) [place] # (Auto) Eos # (Auto) Seg Neutrophils % Lymphocytes % (Manual) Eosinophils % (Manual) Basophils % (Manual) Nucleated RBC % Seg Neutrophils # Seg Neutrophils # Man Lymphocytes # (Manual) Monocytes # (Manual) Eosinophils # (Manual) Basophils # (Manual) Percent Retic PT INR Fibrinogen D-Dimer ABG pH POC ABG pCO2 POC ABG pO2 ABG pO2 ABG HCO3 ABG O2 Saturation ABG Base Excess ABG Hemoglobin ABG Oxyhemoglobin ABG Sodium ABG Potassium ABG Chloride ABG Glucose Oxyhemoglobin Carboxyhemoglobin Sodium Potassium Chloride Carbon Dioxide BUN Creatinine Glucose POC Glucose 161 H 166 H Hemoglobin A1c Calcium Phosphorus Magnesium AST ALT Alkaline Phosphatase Lactate Dehydrogenase C-Reactive Protein Total Protein Albumin Triglycerides Arterial Blood Glucose Arterial Blood Ionized Calcium Urine WBC (Auto) U Epithel Cells (Auto) Urine Creatinine Random Vancomycin Heparin-induced Plt Ab Coronavirus (PCR) Crossmatch See Detail 04/15/21 04/15/21 04/15/21 16:21 18:35 23:16 WBC RBC Hgb Hct MCH MCHC RDW Plt Count Lymph % (Auto) [place] # (Auto) Eos # (Auto) Seg Neutrophils % Lymphocytes % (Manual) Eosinophils % (Manual) Basophils % (Manual) Nucleated RBC % Seg Neutrophils # Seg Neutrophils # Man Lymphocytes # (Manual) Monocytes # (Manual) Eosinophils # (Manual) Basophils # (Manual) Percent Retic PT INR Fibrinogen D-Dimer ABG pH POC ABG pCO2 POC ABG pO2 ABG pO2 ABG HCO3 ABG O2 Saturation ABG Base Excess ABG Hemoglobin ABG Oxyhemoglobin ABG Sodium ABG Potassium ABG Chloride ABG Glucose Oxyhemoglobin Carboxyhemoglobin Sodium Potassium Chloride Carbon Dioxide BUN Creatinine Glucose POC Glucose 157 H 148 H Hemoglobin A1c Calcium Phosphorus Magnesium AST ALT Alkaline Phosphatase Lactate Dehydrogenase C-Reactive Protein Total Protein Albumin Triglycerides Arterial Blood Glucose Arterial Blood Ionized Calcium Urine WBC (Auto) 156.0 H U Epithel Cells (Auto) 15.0 H Urine Creatinine Random Vancomycin Heparin-induced Plt Ab Coronavirus (PCR) Crossmatch 04/15/21 04/15/21 04/15/21 Unknown Unknown Unknown WBC 11.8 H RBC 2.41 L Hgb 7.1 L Hct 22.4 L MCH MCHC RDW 17.0 H Plt Count 38 L Lymph % (Auto) [place] # (Auto) Eos # (Auto) Seg Neutrophils % Lymphocytes % (Manual) Eosinophils % (Manual) Basophils % (Manual) Nucleated RBC % Seg Neutrophils # Seg Neutrophils # Man Lymphocytes # (Manual) Monocytes # (Manual) Eosinophils # (Manual) Basophils # (Manual) Percent Retic PT 16.3 H INR 1.18 H Fibrinogen D-Dimer ABG pH POC ABG pCO2 POC ABG pO2 ABG pO2 ABG HCO3 ABG O2 Saturation ABG Base Excess ABG Hemoglobin ABG Oxyhemoglobin ABG Sodium ABG Potassium ABG Chloride ABG Glucose Oxyhemoglobin Carboxyhemoglobin Sodium Potassium Chloride Carbon Dioxide BUN 67 H Creatinine 3.3 H Glucose 155 H POC Glucose Hemoglobin A1c Calcium 8.3 L Phosphorus 5.70 H Magnesium AST 85 H ALT 63 H Alkaline Phosphatase Lactate Dehydrogenase C-Reactive Protein Total Protein Albumin 2.4 L Triglycerides Arterial Blood Glucose Arterial Blood Ionized Calcium Urine WBC (Auto) U Epithel Cells (Auto) Urine Creatinine Random Vancomycin Heparin-induced Plt Ab Coronavirus (PCR) Crossmatch 04/16/21 04/16/21 04/16/21 04:54 04:54 05:23 WBC 15.4 H RBC 2.59 L Hgb 7.7 L Hct 24.1 L MCH MCHC RDW 16.6 H Plt Count 42 L Lymph % (Auto) [place] # (Auto) Eos # (Auto) Seg Neutrophils % Lymphocytes % (Manual) Eosinophils % (Manual) Basophils % (Manual) Nucleated RBC % Seg Neutrophils # Seg Neutrophils # Man Lymphocytes # (Manual) Monocytes # (Manual) Eosinophils # (Manual) Basophils # (Manual) Percent Retic PT INR Fibrinogen D-Dimer ABG pH POC ABG pCO2 POC ABG pO2 ABG pO2 ABG HCO3 ABG O2 Saturation ABG Base Excess ABG Hemoglobin ABG Oxyhemoglobin ABG Sodium ABG Potassium ABG Chloride ABG Glucose Oxyhemoglobin Carboxyhemoglobin Sodium Potassium Chloride Carbon Dioxide BUN 82 H Creatinine 3.4 H Glucose 142 H POC Glucose 118 H Hemoglobin A1c Calcium 8.2 L Phosphorus Magnesium AST ALT Alkaline Phosphatase Lactate Dehydrogenase C-Reactive Protein Total Protein Albumin Triglycerides Arterial Blood Glucose Arterial Blood Ionized Calcium Urine WBC (Auto) U Epithel Cells (Auto) Urine Creatinine Random Vancomycin Heparin-induced Plt Ab Coronavirus (PCR) Crossmatch 04/16/21 04/16/21 04/16/21 11:06 15:50 23:36 WBC RBC Hgb Hct MCH MCHC RDW Plt Count Lymph % (Auto) [place] # (Auto) Eos # (Auto) Seg Neutrophils % Lymphocytes % (Manual) Eosinophils % (Manual) Basophils % (Manual) Nucleated RBC % Seg Neutrophils # Seg Neutrophils # Man Lymphocytes # (Manual) Monocytes # (Manual) Eosinophils # (Manual) Basophils # (Manual) Percent Retic PT INR Fibrinogen D-Dimer ABG pH 7.300 L POC ABG pCO2 49.3 H POC ABG pO2 ABG pO2 ABG HCO3 ABG O2 Saturation ABG Base Excess ABG Hemoglobin 9.5 L ABG Oxyhemoglobin ABG Sodium 133.8 L ABG Potassium 4.7 H ABG Chloride ABG Glucose 155 H Oxyhemoglobin Carboxyhemoglobin 0.1 L Sodium Potassium Chloride Carbon Dioxide BUN Creatinine Glucose POC Glucose 133 H 141 H Hemoglobin A1c Calcium Phosphorus Magnesium AST ALT Alkaline Phosphatase Lactate Dehydrogenase C-Reactive Protein Total Protein Albumin Triglycerides Arterial Blood Glucose 155 H Arterial Blood Ionized Calcium Urine WBC (Auto) U Epithel Cells (Auto) Urine Creatinine Random Vancomycin Heparin-induced Plt Ab Coronavirus (PCR) Crossmatch 04/17/21 04/17/21 04/17/21 04:10 04:42 04:42 WBC 14.1 H RBC 2.39 L Hgb 7.1 L Hct 22.3 L MCH MCHC RDW 16.8 H Plt Count 49 L Lymph % (Auto) [place] # (Auto) Eos # (Auto) Seg Neutrophils % Lymphocytes % (Manual) 10.0 L Eosinophils % (Manual) Basophils % (Manual) Nucleated RBC % Seg Neutrophils # Seg Neutrophils # Man 9.6 H Lymphocytes # (Manual) Monocytes # (Manual) Eosinophils # (Manual) Basophils # (Manual) Percent Retic PT INR Fibrinogen D-Dimer ABG pH 7.294 L POC ABG pCO2 51.9 H POC ABG pO2 ABG pO2 ABG HCO3 ABG O2 Saturation ABG Base Excess ABG Hemoglobin 7.4 L ABG Oxyhemoglobin ABG Sodium 132.3 L ABG Potassium 5.4 H ABG Chloride ABG Glucose 187 H Oxyhemoglobin Carboxyhemoglobin Sodium Potassium 5.7 H D Chloride Carbon Dioxide BUN 101 H Creatinine 3.8 H Glucose 179 H POC Glucose Hemoglobin A1c Calcium 8.1 L Phosphorus 7.90 H Magnesium AST ALT Alkaline Phosphatase Lactate Dehydrogenase C-Reactive Protein Total Protein Albumin Triglycerides Arterial Blood Glucose 187 H Arterial Blood Ionized Calcium Urine WBC (Auto) U Epithel Cells (Auto) Urine Creatinine Random Vancomycin Heparin-induced Plt Ab Coronavirus (PCR) Crossmatch 04/17/21 04/17/21 04/17/21 10:58 10:58 10:58 WBC 12.3 H RBC 2.25 L Hgb 6.7 L Hct 20.9 L MCH MCHC RDW 16.7 H Plt Count 53 L Lymph % (Auto) [place] # (Auto) Eos # (Auto) Seg Neutrophils % Lymphocytes % (Manual) Eosinophils % (Manual) Basophils % (Manual) Nucleated RBC % Seg Neutrophils # Seg Neutrophils # Man Lymphocytes # (Manual) Monocytes # (Manual) Eosinophils # (Manual) Basophils # (Manual) Percent Retic PT 17.1 H INR 1.26 H Fibrinogen D-Dimer ABG pH POC ABG pCO2 POC ABG pO2 ABG pO2 ABG HCO3 ABG O2 Saturation ABG Base Excess ABG Hemoglobin ABG Oxyhemoglobin ABG Sodium ABG Potassium ABG Chloride ABG Glucose Oxyhemoglobin Carboxyhemoglobin Sodium Potassium 5.9 H Chloride Carbon Dioxide 20 L BUN 112 H Creatinine 3.6 H Glucose 174 H POC Glucose Hemoglobin A1c Calcium 7.8 L Phosphorus Magnesium AST ALT Alkaline Phosphatase Lactate Dehydrogenase C-Reactive Protein Total Protein 5.7 L Albumin 2.1 L Triglycerides Arterial Blood Glucose Arterial Blood Ionized Calcium Urine WBC (Auto) U Epithel Cells (Auto) Urine Creatinine Random Vancomycin Heparin-induced Plt Ab Coronavirus (PCR) Crossmatch 04/17/21 04/17/21 04/17/21 12:25 17:57 23:00 WBC RBC Hgb Hct MCH MCHC RDW Plt Count Lymph % (Auto) [place] # (Auto) Eos # (Auto) Seg Neutrophils % Lymphocytes % (Manual) Eosinophils % (Manual) Basophils % (Manual) Nucleated RBC % Seg Neutrophils # Seg Neutrophils # Man Lymphocytes # (Manual) Monocytes # (Manual) Eosinophils # (Manual) Basophils # (Manual) Percent Retic PT INR Fibrinogen D-Dimer ABG pH POC ABG pCO2 POC ABG pO2 ABG pO2 ABG HCO3 ABG O2 Saturation ABG Base Excess ABG Hemoglobin ABG Oxyhemoglobin ABG Sodium ABG Potassium ABG Chloride ABG Glucose Oxyhemoglobin Carboxyhemoglobin Sodium Potassium Chloride Carbon Dioxide BUN Creatinine Glucose POC Glucose 150 H 153 H 138 H Hemoglobin A1c Calcium Phosphorus Magnesium AST ALT Alkaline Phosphatase Lactate Dehydrogenase C-Reactive Protein Total Protein Albumin Triglycerides Arterial Blood Glucose Arterial Blood Ionized Calcium Urine WBC (Auto) U Epithel Cells (Auto) Urine Creatinine Random Vancomycin Heparin-induced Plt Ab Coronavirus (PCR) Crossmatch 04/18/21 04/18/21 04/18/21 00:08 04:55 04:55 WBC 12.4 H RBC 2.55 L Hgb 7.9 L Hct 23.6 L MCH MCHC RDW 16.1 H Plt Count 99 L Lymph % (Auto) [place] # (Auto) Eos # (Auto) Seg Neutrophils % Lymphocytes % (Manual) Eosinophils % (Manual) Basophils % (Manual) Nucleated RBC % Seg Neutrophils # Seg Neutrophils # Man Lymphocytes # (Manual) Monocytes # (Manual) Eosinophils # (Manual) Basophils # (Manual) Percent Retic PT INR Fibrinogen D-Dimer ABG pH POC ABG pCO2 POC ABG pO2 81.2 L ABG pO2 ABG HCO3 ABG O2 Saturation ABG Base Excess ABG Hemoglobin 8.6 L ABG Oxyhemoglobin ABG Sodium 133.0 L ABG Potassium ABG Chloride ABG Glucose 155 H Oxyhemoglobin Carboxyhemoglobin Sodium 136 L Potassium Chloride Carbon Dioxide BUN 86 H Creatinine 3.1 H Glucose 180 H POC Glucose Hemoglobin A1c Calcium 8.2 L Phosphorus 6.50 H Magnesium AST ALT Alkaline Phosphatase Lactate Dehydrogenase C-Reactive Protein Total Protein Albumin Triglycerides Arterial Blood Glucose 155 H Arterial Blood Ionized Calcium 4.4 L Urine WBC (Auto) U Epithel Cells (Auto) Urine Creatinine Random Vancomycin Heparin-induced Plt Ab Coronavirus (PCR) Crossmatch 04/18/21 04/18/21 04/18/21 05:25 11:49 17:15 WBC RBC Hgb Hct MCH MCHC RDW Plt Count Lymph % (Auto) [place] # (Auto) Eos # (Auto) Seg Neutrophils % Lymphocytes % (Manual) Eosinophils % (Manual) Basophils % (Manual) Nucleated RBC % Seg Neutrophils # Seg Neutrophils # Man Lymphocytes # (Manual) Monocytes # (Manual) Eosinophils # (Manual) Basophils # (Manual) Percent Retic PT INR Fibrinogen D-Dimer ABG pH POC ABG pCO2 POC ABG pO2 ABG pO2 ABG HCO3 ABG O2 Saturation ABG Base Excess ABG Hemoglobin ABG Oxyhemoglobin ABG Sodium ABG Potassium ABG Chloride ABG Glucose Oxyhemoglobin Carboxyhemoglobin Sodium Potassium Chloride Carbon Dioxide BUN Creatinine Glucose POC Glucose 163 H 122 H 153 H Hemoglobin A1c Calcium Phosphorus Magnesium AST ALT Alkaline Phosphatase Lactate Dehydrogenase C-Reactive Protein Total Protein Albumin Triglycerides Arterial Blood Glucose Arterial Blood Ionized Calcium Urine WBC (Auto) U Epithel Cells (Auto) Urine Creatinine Random Vancomycin Heparin-induced Plt Ab Coronavirus (PCR) Crossmatch 04/19/21 04/19/21 04/19/21 00:14 03:09 04:00 WBC RBC Hgb Hct MCH MCHC RDW Plt Count Lymph % (Auto) [place] # (Auto) Eos # (Auto) Seg Neutrophils % Lymphocytes % (Manual) Eosinophils % (Manual) Basophils % (Manual) Nucleated RBC % Seg Neutrophils # Seg Neutrophils # Man Lymphocytes # (Manual) Monocytes # (Manual) Eosinophils # (Manual) Basophils # (Manual) Percent Retic PT INR Fibrinogen D-Dimer ABG pH 7.301 L POC ABG pCO2 48.7 H POC ABG pO2 82.1 L ABG pO2 ABG HCO3 ABG O2 Saturation ABG Base Excess ABG Hemoglobin 8.9 L ABG Oxyhemoglobin 93.8 L ABG Sodium 133.9 L ABG Potassium 5.2 H ABG Chloride ABG Glucose 126 H Oxyhemoglobin Carboxyhemoglobin Sodium Potassium 5.3 H Chloride Carbon Dioxide BUN 102 H Creatinine 3.2 H Glucose 116 H POC Glucose 118 H Hemoglobin A1c Calcium 8.2 L Phosphorus Magnesium AST ALT Alkaline Phosphatase Lactate Dehydrogenase C-Reactive Protein Total Protein Albumin Triglycerides Arterial Blood Glucose 126 H Arterial Blood Ionized Calcium Urine WBC (Auto) U Epithel Cells (Auto) Urine Creatinine Random Vancomycin Heparin-induced Plt Ab Coronavirus (PCR) Crossmatch 04/19/21 04/19/21 04/19/21 04:58 05:00 11:18 WBC 12.5 H RBC 2.79 L Hgb 8.6 L Hct 26.2 L MCH MCHC RDW 17.3 H Plt Count 121 L Lymph % (Auto) [place] # (Auto) Eos # (Auto) Seg Neutrophils % Lymphocytes % (Manual) Eosinophils % (Manual) Basophils % (Manual) Nucleated RBC % Seg Neutrophils # Seg Neutrophils # Man Lymphocytes # (Manual) Monocytes # (Manual) Eosinophils # (Manual) Basophils # (Manual) Percent Retic PT INR Fibrinogen D-Dimer ABG pH POC ABG pCO2 POC ABG pO2 ABG pO2 ABG HCO3 ABG O2 Saturation ABG Base Excess ABG Hemoglobin ABG Oxyhemoglobin ABG Sodium ABG Potassium ABG Chloride ABG Glucose Oxyhemoglobin Carboxyhemoglobin Sodium Potassium Chloride Carbon Dioxide BUN Creatinine Glucose POC Glucose 118 H 118 H Hemoglobin A1c Calcium Phosphorus Magnesium AST ALT Alkaline Phosphatase Lactate Dehydrogenase C-Reactive Protein Total Protein Albumin Triglycerides Arterial Blood Glucose Arterial Blood Ionized Calcium Urine WBC (Auto) U Epithel Cells (Auto) Urine Creatinine Random Vancomycin Heparin-induced Plt Ab Coronavirus (PCR) Crossmatch Allied health notes reviewed: nursing
--- NOTE | 2021-04-19 14:08 | Progress Note ---
Assessment and Plan Cultures: SARS CoV2 PCR: Positive 03/13/2021 blood culture: No growth Resp cultures 03/14/2021: MSSA 03/23/2021 blood culture: No growth 03/23/2021 sputum culture: Usual respiratory maury 03/29/2021 blood culture: no growth 04/06/2021 blood culture: In process 04/06/2021 endotracheal aspirate culture: E faecalis 04/06/2021 urine culture: No growth A/P: 31-year-old female with asthma, morbid obesity, Crohn's disease admitted with cough and shortness of breath: #Septic shock: s/p abx. Persistently febrile, on multiple pressors. Has previously completed Ancef followed by Cefepime, and now on Aztreonam, Vancomycin and levofloxacin. #Bilateral pneumonia: Secondary to COVID-19. Severe disease, then developed MSSA in the lungs. s/p Actemra 03/15/2021, completed steroids for COVID. D-dimer very high initially, which has shown improvement. #Acute hypoxic respiratory failure: on the vent. #Rash with eosinophilia: Question of drug reaction, remains off Cefepime. 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 #Acute renal failure: progressive. Nephrology following, on HD. #Acute asthma exacerbation #Morbid obesity Recs: -Completed empiric broad specturm antibiotics and anti-fungals without improvement. -At this point I doubt there is much less to offer from an ID standpoint. -on steroids per ICU -Unable to complete CT -extremely poor prognosis, recommend palliative care GEloisa Ling MD [facility] ([facility] O: [phone] F: [phone] Subjective Date of service: 04/19/21 Principal diagnosis: Ac hypoxemic resp failure; AE-Asthma; SAI; Crohn's; COVID- 19; Pneumonia Interval history: Persistent low grade temperatures and slightly elevated white count. Objective - Exam Narrative Exam: Physical exam deferred to reduce risk of transmission of COVID-19. Please refer to primary team's note. - Constitutional Vitals: Vital Signs Temp Pulse Resp BP Pulse Ox 100.2 F H 131 H 16 128/54 100 04/19/21 12:11 04/19/21 12:42 04/19/21 11:46 04/19/21 12:42 04/19/21 12:42 Temperature -Last 24 Hours Temperature 100.2 F Temperature 99.4 F Temperature 100.2 F Temperature 99.7 F Temperature 100.2 F Temperature 100 F Temperature 100.1 F Temperature 100.2 F - Labs CBC & Chem 7: 04/19/21 05:00 04/19/21 04:00 Labs: Abnormal lab results 04/14/21 04/15/21 04/18/21 Range/Units 09:45 12:10 17:15 WBC (4.5-11.0) K/mm3 RBC (3.65-5.03) M/mm3 Hgb (10.1-14.3) gm/dl Hct (30.3-42.9) % RDW (13.2-15.2) % Plt Count (140-440) K/mm3 ABG pH (7.320-7.450) POC ABG pCO2 (32.0-48.0) mmHg POC ABG pO2 (83-108) mmHg ABG Hemoglobin (12.0-17.5) ABG Oxyhemoglobin (94-98) ABG Sodium (136.0-145.0) mmol/L ABG Potassium (3.40-4.50) mmol/L ABG Glucose (65-95) mg/dL Potassium (3.6-5.0) mmol/L BUN (7-17) mg/dL Creatinine (0.6-1.2) mg/dL Glucose (65-100) mg/dL POC Glucose 153 H (70-105) mg/dL Calcium (8.4-10.2) mg/dL Arterial Blood Glucose (65-95) mg/dL Heparin-induced Plt Ab Positive H (Negative) Crossmatch See Detail 04/19/21 04/19/21 04/19/21 Range/Units 00:14 03:09 04:00 WBC (4.5-11.0) K/mm3 RBC (3.65-5.03) M/mm3 Hgb (10.1-14.3) gm/dl Hct (30.3-42.9) % RDW (13.2-15.2) % Plt Count (140-440) K/mm3 ABG pH 7.301 L (7.320-7.450) POC ABG pCO2 48.7 H (32.0-48.0) mmHg POC ABG pO2 82.1 L (83-108) mmHg ABG Hemoglobin 8.9 L (12.0-17.5) ABG Oxyhemoglobin 93.8 L (94-98) ABG Sodium 133.9 L (136.0-145.0) mmol/L ABG Potassium 5.2 H (3.40-4.50) mmol/L ABG Glucose 126 H (65-95) mg/dL Potassium 5.3 H (3.6-5.0) mmol/L BUN 102 H (7-17) mg/dL Creatinine 3.2 H (0.6-1.2) mg/dL Glucose 116 H (65-100) mg/dL POC Glucose 118 H (70-105) mg/dL Calcium 8.2 L (8.4-10.2) mg/dL Arterial Blood Glucose 126 H (65-95) mg/dL Heparin-induced Plt Ab (Negative) Crossmatch 04/19/21 04/19/21 04/19/21 Range/Units 04:58 05:00 11:18 WBC 12.5 H (4.5-11.0) K/mm3 RBC 2.79 L (3.65-5.03) M/mm3 Hgb 8.6 L (10.1-14.3) gm/dl Hct 26.2 L (30.3-42.9) % RDW 17.3 H (13.2-15.2) % Plt Count 121 L (140-440) K/mm3 ABG pH (7.320-7.450) POC ABG pCO2 (32.0-48.0) mmHg POC ABG pO2 (83-108) mmHg ABG Hemoglobin (12.0-17.5) ABG Oxyhemoglobin (94-98) ABG Sodium (136.0-145.0) mmol/L ABG Potassium (3.40-4.50) mmol/L ABG Glucose (65-95) mg/dL Potassium (3.6-5.0) mmol/L BUN (7-17) mg/dL Creatinine (0.6-1.2) mg/dL Glucose (65-100) mg/dL POC Glucose 118 H 118 H (70-105) mg/dL Calcium (8.4-10.2) mg/dL Arterial Blood Glucose (65-95) mg/dL Heparin-induced Plt Ab (Negative) Crossmatch
--- NOTE | 2021-04-19 14:15 | Hem/Onc Progress Note ---
Subjective Date of service: 04/19/21 Interval history: Heme progress note televisit via tsrd cpt: [id number] Dx: thrombocytopenia 31yo obese AA woman 300 lbs, with covid infection and ARF requiring hD s/p plasma exchange x 2 days off pressors, on Versed noted to have low grade temp and continues to be tachycardic h/o asthma and intubation 2019 h/o crohns disease per notes S/p ETT exchange and bronchoscopy 04/11 due to bloody secretions Family meeting with palliative care 04/14 due to poor prognosis Plan for possible peg/trach next week Noted with oral bleeding DATA REVIEWED BELOW plts 121 fib 400 Hct 26.2 IMP: Continues with severe anemia , s/p transfusions high WBC is "reactive"-not heme malignancy Improvement in thrombocytopenia, could be related to covid infection and/or liver dysfunction HIT test negative 03/22, repeat HIT positive 04/17 REC/PLAN: Labs to include stat fibrinogen Transfuse 1 unit RBC whenever hct<23 Laboratory Last Values WBC 12.5 K/mm3 (4.5-11.0) H 04/19/21 05:00 Hgb 8.6 gm/dl (10.1-14.3) L 04/19/21 05:00 Hct 26.2 % (30.3-42.9) L 04/19/21 05:00 Plt Count 121 K/mm3 (140-440) L 04/19/21 05:00 PT 17.1 Sec. (12.2-14.9) H 04/17/21 10:58 INR 1.26 (0.87-1.13) H 04/17/21 10:58 APTT 27.5 Sec. (24.2-36.6) 04/17/21 10:58 Fibrinogen 400 mg/dl (211-480) 04/14/21 09:45 D-Dimer 2696.79 ng/mlDDU (0-234) H 04/08/21 04:40 Creatinine 3.2 mg/dL (0.6-1.2) H 04/19/21 04:00 AST 29 units/L (5-40) 04/17/21 10:58 ALT 44 units/L (7-56) 04/17/21 10:58 Alkaline Phosphatase 79 units/L (35-129) 04/17/21 10:58 Lactate Dehydrogenase 394 units/L (91-180) H 04/05/21 05:20 C-Reactive Protein 26.10 mg/dL (0.00-1.30) H 04/08/21 04:00 KIMBERLEY Screen Negative (Negative) 04/07/21 08:27 Heparin-induced Plt Ab Positive (Negative) H 04/14/21 09:45 UF Heparin High Dose 0 % Release 04/14/21 09:45 JUAN UFH Low Dose 0.1 1 % Release 04/14/21 09:45 JUAN UFH Low Dose 0.5 0 % Release 04/14/21 09:45 Coronavirus (PCR) Negative (Negative) 04/04/21 09:00 Hepatitis A IgM Ab Non-reactive (NonReactive) 03/15/21 05:09 Hep Bs Antigen Nonreactive (Negative) 03/15/21 05:09 Hep B Core IgM Ab Non-reactive (NonReactive) 03/15/21 05:09 Hepatitis C Antibody Non-reactive (NonReactive) 03/15/21 05:09 Blood Type O POSITIVE 04/15/21 12:10 Antibody Screen Positive 04/15/21 12:10 Antibody Identification Anti-E 04/15/21 12:10 Direct Antiglob Test Negative 03/31/21 23:18 NIKOLE, Poly Interpret Negative 03/31/21 23:18 Crossmatch See Detail 04/15/21 12:10 Objective - Constitutional Vitals: Last Vital Signs Temp 100.2 F H 04/19/21 12:11 Pulse 131 H 04/19/21 12:42 Resp 16 04/19/21 11:46 BP 128/54 04/19/21 12:42 Pulse Ox 100 04/19/21 12:42 - Labs Lab Results: Laboratory Results - last 24 hr 04/14/21 04/15/21 04/18/21 09:45 12:10 17:15 WBC RBC Hgb Hct MCV MCH MCHC RDW Plt Count Heparin Anti-Xa, Unfract Negative ABG pH POC ABG pCO2 POC ABG pO2 POC ABG HCO3 ABG O2 Saturation POC ABG Base Excess ABG Hemoglobin ABG Oxyhemoglobin ABG Methemoglobin ABG Sodium ABG Potassium ABG Chloride ABG Glucose Carboxyhemoglobin FiO2 % Sodium Potassium Chloride Carbon Dioxide Anion Gap BUN Creatinine Estimated GFR BUN/Creatinine Ratio Glucose POC Glucose 153 H Calcium Arterial Blood Glucose Heparin-induced Plt Ab Positive H UF Heparin High Dose 0 JUAN UFH Low Dose 0.1 1 JUAN UFH Low Dose 0.5 0 Crossmatch See Detail 04/19/21 04/19/21 04/19/21 00:14 03:09 04:00 WBC RBC Hgb Hct MCV MCH MCHC RDW Plt Count Heparin Anti-Xa, Unfract ABG pH 7.301 L POC ABG pCO2 48.7 H POC ABG pO2 82.1 L POC ABG HCO3 23.5 ABG O2 Saturation 94.9 POC ABG Base Excess -2.9 ABG Hemoglobin 8.9 L ABG Oxyhemoglobin 93.8 L ABG Methemoglobin 0.1 ABG Sodium 133.9 L ABG Potassium 5.2 H ABG Chloride 101.0 ABG Glucose 126 H Carboxyhemoglobin 1.1 FiO2 % 40.0 Sodium 138 Potassium 5.3 H Chloride 100.3 Carbon Dioxide 24 Anion Gap 19 BUN 102 H Creatinine 3.2 H Estimated GFR 21 BUN/Creatinine Ratio 32 Glucose 116 H POC Glucose 118 H Calcium 8.2 L Arterial Blood Glucose 126 H Heparin-induced Plt Ab UF Heparin High Dose JUAN UFH Low Dose 0.1 JUAN UFH Low Dose 0.5 Crossmatch 04/19/21 04/19/21 04/19/21 04:58 05:00 11:18 WBC 12.5 H RBC 2.79 L Hgb 8.6 L Hct 26.2 L MCV 94 MCH 31 MCHC 33 RDW 17.3 H Plt Count 121 L Heparin Anti-Xa, Unfract ABG pH POC ABG pCO2 POC ABG pO2 POC ABG HCO3 ABG O2 Saturation POC ABG Base Excess ABG Hemoglobin ABG Oxyhemoglobin ABG Methemoglobin ABG Sodium ABG Potassium ABG Chloride ABG Glucose Carboxyhemoglobin FiO2 % Sodium Potassium Chloride Carbon Dioxide Anion Gap BUN Creatinine Estimated GFR BUN/Creatinine Ratio Glucose POC Glucose 118 H 118 H Calcium Arterial Blood Glucose Heparin-induced Plt Ab UF Heparin High Dose JUAN UFH Low Dose 0.1 JUAN UFH Low Dose 0.5 Crossmatch Medications & Allergies - Medications Allergies/Adverse Reactions: Allergies oxycodone HCl [From Percocet] Allergy (Severe, Verified 03/30/21 14:01) Swelling cefepime Allergy (Verified 04/06/21 13:38) Rash hydrocodone bitartrate [From Vicodin] Allergy (Verified 03/31/21 08:20) Swelling ALLERGY TO TYLENOL VS OXYCODONE ACTIVE ORDER REMOVED FROM MAR SINCE UNABLE TO CONFIRM WITH FAMILY Home Medications: Home Medications Medication Instructions Recorded Confirmed Last Taken Type Chlorhexidine Mouthwash [Peridex] 15 ml MM BID #1 bottle 10/11/20 03/13/21 Unknown Rx Clindamycin [Clindamycin CAP] 300 mg PO Q8H #21 cap 10/11/20 03/13/21 Unknown Rx Naproxen 500 mg PO Q12H PRN #12 tablet 10/11/20 03/13/21 Unknown Rx Butalb/Acetamin/Caff 50-325-40 1 - 2 tab PO Q6HR PRN #15 tab 12/05/20 03/13/21 Unknown Rx [Fioricet 50-325-40] Famotidine [Pepcid] 20 mg PO BID #30 tablet 12/05/20 03/13/21 Unknown Rx Ketorolac [Toradol] 10 mg PO Q8H PRN #20 tablet 12/05/20 03/13/21 Unknown Rx Ondansetron [Zofran Odt] 4 mg PO Q6HR PRN #20 tab.rapdis 12/05/20 03/13/21 Unknown Rx Albuterol Sulfate [Proair 90 mcg IH Q4HR PRN #2 [email or web address] 01/01/21 03/13/21 Unknown Rx Respiclick] Mupirocin [Bactroban 2% OINT] 1 applic TP BID 7 Days #1 tube 01/01/21 03/13/21 Unknown Rx Triamcinolone Aceton 0.1% (Nf) 1 applic TP BID 14 Days #1 tube 01/01/21 03/13/21 Unknown Rx [Kenalog (NF)] predniSONE [Deltasone] 40 mg PO QDAY #8 tab 01/01/21 03/13/21 Unknown Rx Active Medications: Generic Name Dose Route Start Last Admin Trade Name Freq PRN Reason Stop Dose Admin Acetaminophen 650 mg 03/31/21 12:41 04/19/21 05:37 Acetaminophen 325 Mg/10.15 Ml Oral Liqd Unit Dose FEEDTUBE 650 mg Q6H PRN Administration TEMP >/=100.4 Albumin Human 25 gm 04/01/21 08:19 11/18/21 16:23 Albumin Human 25% (25 Gm/100 Ml) Inj IV 25 gm KARLOS PRN Administration Hypotension Albuterol 2.5 mg 03/19/21 00:53 Albuterol 2.5 Mg/3 Ml Nebu IH Q4HRT PRN Shortness Of Breath Albuterol/Ipratropium 1 ampul 03/19/21 08:00 04/19/21 08:31 Ipratropium/Albuterol Sulfate 3 Ml Ampul.Neb IH 1 ampul Q6HRT INESSA Administration Lipase/Protease/Amylase 1 each 04/09/21 17:17 Lipase 10,500/Protease 25,000/Amylase 43,750 (Units) Cap FEEDTUBE PRN PRN For Clogged Feeding Tube Calcium Acetate 1,334 mg 04/03/21 20:00 04/19/21 13:33 Calcium Acetate 667 Mg Cap FEEDTUBE 1,334 mg TID INESSA Administration Dextrose 50 ml 03/14/21 11:02 03/15/21 11:40 Dextrose 50% In Water (25gm) 50 Ml Syringe IV 50 ml Q30MIN PRN Administration Hypoglycemia Protocol Famotidine 10 mg 03/17/21 22:00 04/19/21 13:25 Famotidine 10 Mg Tab PO Not Given BID INESSA Fentanyl 50 mcg 04/15/21 11:48 04/18/21 18:58 Fentanyl 100 Mcg/2 Ml Inj IV 50 mcg Q10MIN PRN Administration ANALGESIA Hydrocortisone Sodium Succinate 50 mg 04/18/21 10:00 04/19/21 13:33 Hydrocortisone Sod Succ 100 Mg/2 Ml Vial IV 04/21/21 22:01 50 mg Q12H INESSA Administration Hydrocortisone Sodium Succinate 25 mg 04/22/21 10:00 Hydrocortisone Sod Succ 100 Mg/2 Ml Vial IV 04/25/21 09:59 QDAY INESSA Hydrophilic Ointment 1 applic 03/14/21 17:50 04/18/21 19:02 Lip Therapy Vaseline TP 1 applic Q2HR PRN Administration Dry Lips Hydrophilic Ointment 1 applic 04/15/21 13:00 04/19/21 10:49 Aquaphor Ointment TP 1 applic Q12HR INESSA Administration Midazolam HCl 100 mg/ Sodium 100 mls @ 1 mls/hr 03/30/21 15:00 04/19/21 05:32 Chloride IV 7 mg/hr TITR INESSA 7 mls/hr Administration Protocol 1 MG/HR Vasopressin 20 unit/ Sodium 101 mls @ 9.09 mls/hr 03/30/21 20:00 04/18/21 02:04 Chloride IV 0.03 units/min TITR INESSA 9.09 mls/hr Administration 0.03 UNITS/MIN Phenylephrine HCl 100 mg/ 100 mls @ 3 mls/hr 03/31/21 04:00 04/06/21 07:58 Sodium Chloride IV 0 mcg/min TITR INESSA 0 mls/hr Titration Protocol 50 MCG/MIN Propofol 1,000 mg in 100 mls @ 4.26 mls/hr 04/07/21 13:00 04/12/21 12:52 Diprivan 10 Mg/Ml IV 0 mcg/kg/min TITR INESSA 0 mls/hr Titration Protocol 5 MCG/KG/MIN Sodium Chloride 1,000 mls @ 1 mls/hr 04/14/21 16:45 04/14/21 16:57 Nacl 0.9% 1000 Ml IV 1 mls/hr DIRECT INESSA Administration NORepinephrine/NS 8 MG-250 ML 8 mg in 250 mls @ 3.75 mls/hr 04/15/21 12:00 04/19/21 08:20 Norepinephrine/Ns 8 Mg-250 Ml (Double Conc) IV 3 mcg/min TITRATE INESSA 5.625 mls/hr Titration Protocol 2 MCG/MIN Fentanyl Citrate 2,000 mcg in 100 mls @ 7.1 mls/hr 04/15/21 13:00 04/19/21 13:33 Fentanyl Drip Premix IV 4 mcg/kg/hr TITR INESSA 28.4 mls/hr Administration Protocol 1 MCG/KG/HR Sodium Chloride 100 mls @ 999 mls/hr 04/18/21 14:26 Nacl 0.9% IV KARLOS PRN Hypotension Insulin Human Lispro 0 unit 03/14/21 12:00 04/19/21 13:25 Insulin Lispro 100 Unit/Ml SUB-Q Not Given Q6HR INESSA Protocol Lorazepam 1 mg 03/13/21 19:40 04/18/21 18:58 Lorazepam 2 Mg/Ml Vial IV 1 mg Q4H PRN Administration Anxiety Multi-Ingred Cream/Lotion/Oil/Oint 1 applic 03/14/21 17:50 04/16/21 23:02 Mineral Oil/Petrolatum, White Ophth Oint 3.5 Gm OU 1 applic Q4HR PRN Administration Dry Eye(s) Ondansetron HCl 4 mg 03/13/21 19:30 03/21/21 12:05 Ondansetron 4 Mg/2 Ml Inj IV 4 mg Q8H PRN Administration Nausea And Vomiting Quetiapine Fumarate 300 mg 04/06/21 22:00 04/19/21 10:48 Quetiapine 100 Mg Tab PO 300 mg BID INESSA Administration Senna/Docusate Sodium 1 tab 03/14/21 22:00 04/19/21 10:48 Sennosides/Docusate Sodium 8.6/50 Mg Tab FEEDTUBE 1 tab BID INESSA Administration Simple Syrup 15 ml 04/09/21 17:17 Simple Syrup 15 Ml FEEDTUBE PRN PRN Hypoglycemia Simple Syrup 30 ml 04/09/21 17:17 Simple Syrup 15 Ml FEEDTUBE PRN PRN Hypoglycemia Sodium Bicarbonate 325 mg 04/09/21 17:17 Sodium Bicarbonate 325 Mg Tab FEEDTUBE PRN PRN For Clogged Feeding Tube Sodium Chloride 10 ml 03/13/21 22:00 04/19/21 10:53 Sodium Chloride 0.9% 10 Ml Flush Syringe IV 10 ml BID INESSA Administration Sodium Chloride 10 ml 03/13/21 19:30 04/17/21 05:34 Sodium Chloride 0.9% 10 Ml Flush Syringe IV 10 ml PRN PRN Administration LINE FLUSH
--- NOTE | 2021-04-19 15:15 | Consultation ---
History of Present Illness Consult date: 04/19/21 - History of present illness History of present illness: 31 yo with respiratory failure secondary to Covid. Medications and Allergies Allergies Allergy/AdvReac Type Severity Reaction Status Date / Time oxycodone HCl [From Percocet] Allergy Severe Swelling Verified 03/30/21 14:01 cefepime Allergy Rash Verified 04/06/21 13:38 hydrocodone bitartrate Allergy Swelling Verified 03/31/21 08:20 [From Vicodin] Home Medications Medication Instructions Recorded Confirmed Last Taken Type Chlorhexidine Mouthwash [Peridex] 15 ml MM BID #1 bottle 10/11/20 03/13/21 Un known Rx Clindamycin [Clindamycin CAP] 300 mg PO Q8H #21 cap 10/11/20 03/13/21 Unknown Rx Naproxen 500 mg PO Q12H PRN #12 tablet 10/11/20 03/13/21 Unknown Rx Butalb/Acetamin/Caff 50-325-40 1 - 2 tab PO Q6HR PRN #15 tab 12/05/20 03/13/21 Unknown Rx [Fioricet 50-325-40] Famotidine [Pepcid] 20 mg PO BID #30 tablet 12/05/20 03/13/21 Unknown Rx Ketorolac [Toradol] 10 mg PO Q8H PRN #20 tablet 12/05/20 03/13/21 Unknown Rx Ondansetron [Zofran Odt] 4 mg PO Q6HR PRN #20 tab.rapdis 12/05/20 03/13/21 Unknown Rx Albuterol Sulfate [Proair 90 mcg IH Q4HR PRN #2 aer.pow.ba 01/01/21 03/13/21 Unknown Rx Respiclick] Mupirocin [Bactroban 2% OINT] 1 applic TP BID 7 Days #1 tube 01/01/21 03/13/21 Unknown Rx Triamcinolone Aceton 0.1% (Nf) 1 applic TP BID 14 Days #1 tube 01/01/21 03/13/21 Unknown Rx [Kenalog (NF)] predniSONE [Deltasone] 40 mg PO QDAY #8 tab 01/01/21 03/13/21 Unknown Rx Active Meds: Active Medications Acetaminophen (Acetaminophen 325 Mg/10.15 Ml Oral Liqd Unit Dose) 650 mg FEEDTUBE Q6H PRN PRN Reason: TEMP >/=100.4 Last Admin: 04/19/21 05:37 Dose: 650 mg Documented by: Albumin Human (Albumin Human 25% (25 Gm/100 Ml) Inj) 25 gm IV KARLOS PRN PRN Reason: Hypotension Last Admin: 04/01/21 16:23 Dose: 25 gm Documented by: Albuterol (Albuterol 2.5 Mg/3 Ml Nebu) 2.5 mg IH Q4HRT PRN PRN Reason: Shortness Of Breath Albuterol/Ipratropium (Ipratropium/Albuterol Sulfate 3 Ml Ampul.Neb) 1 ampul IH Q6HRT [facility] Last Admin: 04/19/21 08:31 Dose: 1 ampul Documented by: Lipase/Protease/Amylase (Lipase 10,500/Protease 25,000/Amylase 43,750 (Units) Dr Christopher) 1 each FEEDTUBE PRN PRN PRN Reason: For Clogged Feeding Tube Calcium Acetate (Calcium Acetate 667 Mg Cap) 1,334 mg FEEDTUBE TID [facility] Last Admin: 04/19/21 13:33 Dose: 1,334 mg Documented by: Dextrose (Dextrose 50% In Water (25gm) 50 Ml Syringe) 50 ml IV Q30MIN PRN; Protocol PRN Reason: Hypoglycemia Last Admin: 03/15/21 11:40 Dose: 50 ml Documented by: Famotidine (Famotidine 10 Mg Tab) 10 mg PO BID [facility] Last Admin: 04/19/21 13:25 Dose: Not Given Documented by: Fentanyl (Fentanyl 100 Mcg/2 Ml Inj) 50 mcg IV Q10MIN PRN PRN Reason: ANALGESIA Last Admin: 04/18/21 18:58 Dose: 50 mcg Documented by: Hydrocortisone Sodium Succinate (Hydrocortisone Sod Succ 100 Mg/2 Ml Vial) 50 mg IV Q12H [facility] Stop: 04/21/21 22:01 Last Admin: 04/19/21 13:33 Dose: 50 mg Documented by: Hydrocortisone Sodium Succinate (Hydrocortisone Sod Succ 100 Mg/2 Ml Vial) 25 mg IV QDAY [facility] Stop: 04/25/21 09:59 Hydrophilic Ointment (Lip Therapy Vaseline) 1 applic TP Q2HR PRN PRN Reason: Dry Lips Last Admin: 04/18/21 19:02 Dose: 1 applic Documented by: Hydrophilic Ointment (Aquaphor Ointment) 1 applic TP Q12HR INESSA Last Admin: 04/19/21 10:49 Dose: 1 applic Documented by: Midazolam HCl 100 mg/ Sodium (Chloride) 100 mls @ 1 mls/hr IV TITR INESSA; Protoco l Last Admin: 04/19/21 05:32 Dose: 7 mg/hr, 7 mls/hr Documented by: Vasopressin 20 unit/ Sodium (Chloride) 101 mls @ 9.09 mls/hr IV TITR INESSA Last Admin: 04/18/21 02:04 Dose: 0.03 units/min, 9.09 mls/hr Documented by: Phenylephrine HCl 100 mg/ (Sodium Chloride) 100 mls @ 3 mls/hr IV TITR INESSA; Protocol Last Titration: 04/06/21 07:58 Dose: 0 mcg/min, 0 mls/hr Documented by: Propofol (Diprivan 10 Mg/Ml) 1,000 mg in 100 mls @ 4.26 mls/hr IV TITR INESSA; Protocol Last Titration: 04/12/21 12:52 Dose: 0 mcg/kg/min, 0 mls/hr Documented by: Sodium Chloride (Nacl 0.9% 1000 Ml) 1,000 mls @ 1 mls/hr IV DIRECT INESSA Last Admin: 04/14/21 16:57 Dose: 1 mls/hr Documented by: NORepinephrine/NS 8 MG-250 ML (Norepinephrine/Ns 8 Mg-250 Ml (Double Conc)) 8 mg in 250 mls @ 3.75 mls/hr IV TITRATE INESSA; Protocol Last Titration: 04/19/21 08:20 Dose: 3 mcg/min, 5.625 mls/hr Documented by: Fentanyl Citrate (Fentanyl Drip Premix) 2,000 mcg in 100 mls @ 7.1 mls/hr IV TITR INESSA; Protocol Last Admin: 04/19/21 13:33 Dose: 4 mcg/kg/hr, 28.4 mls/hr Documented by: Sodium Chloride (Nacl 0.9%) 100 mls @ 999 mls/hr IV KARLOS PRN PRN Reason: Hypotension Insulin Human Lispro (Insulin Lispro 100 Unit/Ml) 0 unit SUB-Q Q6HR INESAS; Protocol Last Admin: 04/19/21 13:25 Dose: Not Given Documented by: Lorazepam (Lorazepam 2 Mg/Ml Vial) 1 mg IV Q4H PRN PRN Reason: Anxiety Last Admin: 04/18/21 18:58 Dose: 1 mg Documented by: Multi-Ingred Cream/Lotion/Oil/Oint (Mineral Oil/Petrolatum, White Ophth Oint 3.5 Gm) 1 applic OU Q4HR PRN PRN Reason: Dry Eye(s) Last Admin: 04/16/21 23:02 Dose: 1 applic Documented by: Ondansetron HCl (Ondansetron 4 Mg/2 Ml Inj) 4 mg IV Q8H PRN PRN Reason: Nausea And Vomiting Last Admin: 03/21/21 12:05 Dose: 4 mg Documented by: Quetiapine Fumarate (Quetiapine 100 Mg Tab) 300 mg PO BID [facility] Last Admin: 04/19/21 10:48 Dose: 300 mg Documented by: Senna/Docusate Sodium (Sennosides/Docusate Sodium 8.6/50 Mg Tab) 1 tab FEEDTUBE BID [facility] Last Admin: 04/19/21 10:48 Dose: 1 tab Documented by: Simple Syrup (Simple Syrup 15 Ml) 15 ml FEEDTUBE PRN PRN PRN Reason: Hypoglycemia Simple Syrup (Simple Syrup 15 Ml) 30 ml FEEDTUBE PRN PRN PRN Reason: Hypoglycemia Sodium Bicarbonate (Sodium Bicarbonate 325 Mg Tab) 325 mg FEEDTUBE PRN PRN PRN Reason: For Clogged Feeding Tube Sodium Chloride (Sodium Chloride 0.9% 10 Ml Flush Syringe) 10 ml IV BID [facility] Last Admin: 04/19/21 10:53 Dose: 10 ml Documented by: Sodium Chloride (Sodium Chloride 0.9% 10 Ml Flush Syringe) 10 ml IV PRN PRN PRN Reason: LINE FLUSH Last Admin: 04/17/21 05:34 Dose: 10 ml Documented by: Sodium Polystyrene Sulfonate (Sodium Polystyrene 15 Gm/60 Ml Oral Liqd) 15 gm PO ONCE@1530 [facility] Stop: 04/19/21 19:30 Review of Systems ROS unobtainable: due to endotracheal tube Exam Vital Signs Resp Pulse Ox 26 H 89 03/13/21 12:47 03/13/21 12:47 - General physical appearance Positive: well developed, well nourished, no distress - Eyes Positive: PERRL, normal occular movement - ENT Positive: normal pinna, normal nares, normal mucosa, no hearing loss, no congestion - Neck Positive: no masses, no bruits, trachea midline, no venous distension - Respiratory Positive: normal expansion, normal respiratory effort, clear to auscultation - Cardiovascular Rhythm: regular Heart Sounds: Present: S1 & S2. Absent: rub, click - Extremities Extremities: no ischemia, pulses symmetrical, No edema - Breasts Breasts: normal, no mass, no skin changes - Abdomen Abdomen: Present: soft, bowel sounds normal. Absent: tender, distended Hernia: none - Genitourinary Male Genitourinary: normal Female Genitourinary: normal - Integumentary no rash, no growths, no abnormal pigmentation Results - Labs 04/20/21 04:30 04/20/21 04:30 Abnormal lab results 04/14/21 04/15/21 04/18/21 Range/Units 09:45 12:10 17:15 WBC (4.5-11.0) K/mm3 RBC (3.65-5.03) M/mm3 Hgb (10.1-14.3) gm/dl Hct (30.3-42.9) % RDW (13.2-15.2) % Plt Count (140-440) K/mm3 ABG pH (7.320-7.450) POC ABG pCO2 (32.0-48.0) mmHg POC ABG pO2 (83-108) mmHg ABG Hemoglobin (12.0-17.5) ABG Oxyhemoglobin (94-98) ABG Sodium (136.0-145.0) mmol/L ABG Potassium (3.40-4.50) mmol/L ABG Glucose (65-95) mg/dL Potassium (3.6-5.0) mmol/L BUN (7-17) mg/dL Creatinine (0.6-1.2) mg/dL Glucose (65-100) mg/dL POC Glucose 153 H (70-105) mg/dL Calcium (8.4-10.2) mg/dL Arterial Blood Glucose (65-95) mg/dL Heparin-induced Plt Ab Positive H (Negative) Crossmatch See Detail 04/19/21 04/19/21 04/19/21 Range/Units 00:14 03:09 04:00 WBC (4.5-11.0) K/mm3 RBC (3.65-5.03) M/mm3 Hgb (10.1-14.3) gm/dl Hct (30.3-42.9) % RDW (13.2-15.2) % Plt Count (140-440) K/mm3 ABG pH 7.301 L (7.320-7.450) POC ABG pCO2 48.7 H (32.0-48.0) mmHg POC ABG pO2 82.1 L (83-108) mmHg ABG Hemoglobin 8.9 L (12.0-17.5) ABG Oxyhemoglobin 93.8 L (94-98) ABG Sodium 133.9 L (136.0-145.0) mmol/L ABG Potassium 5.2 H (3.40-4.50) mmol/L ABG Glucose 126 H (65-95) mg/dL Potassium 5.3 H (3.6-5.0) mmol/L BUN 102 H (7-17) mg/dL Creatinine 3.2 H (0.6-1.2) mg/dL Glucose 116 H (65-100) mg/dL POC Glucose 118 H (70-105) mg/dL Calcium 8.2 L (8.4-10.2) mg/dL Arterial Blood Glucose 126 H (65-95) mg/dL Heparin-induced Plt Ab (Negative) Crossmatch 04/19/21 04/19/21 04/19/21 Range/Units 04:58 05:00 11:18 WBC 12.5 H (4.5-11.0) K/mm3 RBC 2.79 L (3.65-5.03) M/mm3 Hgb 8.6 L (10.1-14.3) gm/dl Hct 26.2 L (30.3-42.9) % RDW 17.3 H (13.2-15.2) % Plt Count 121 L (140-440) K/mm3 ABG pH (7.320-7.450) POC ABG pCO2 (32.0-48.0) mmHg POC ABG pO2 (83-108) mmHg ABG Hemoglobin (12.0-17.5) ABG Oxyhemoglobin (94-98) ABG Sodium (136.0-145.0) mmol/L ABG Potassium (3.40-4.50) mmol/L ABG Glucose (65-95) mg/dL Potassium (3.6-5.0) mmol/L BUN (7-17) mg/dL Creatinine (0.6-1.2) mg/dL Glucose (65-100) mg/dL POC Glucose 118 H 118 H (70-105) mg/dL Calcium (8.4-10.2) mg/dL Arterial Blood Glucose (65-95) mg/dL Heparin-induced Plt Ab (Negative) Crossmatch Diabetes panel 04/19/21 Range/Units 04:00 Sodium 138 (137-145) mmol/L Potassium 5.3 H (3.6-5.0) mmol/L Chloride 100.3 (98-107) mmol/L Carbon Dioxide 24 (22-30) mmol/L BUN 102 H (7-17) mg/dL Creatinine 3.2 H (0.6-1.2) mg/dL Glucose 116 H (65-100) mg/dL Calcium 8.2 L (8.4-10.2) mg/dL Calcium panel 04/19/21 Range/Units 04:00 Calcium 8.2 L (8.4-10.2) mg/dL Pituitary panel 04/19/21 Range/Units 04:00 Sodium 138 (137-145) mmol/L Potassium 5.3 H (3.6-5.0) mmol/L Chloride 100.3 (98-107) mmol/L Carbon Dioxide 24 (22-30) mmol/L BUN 102 H (7-17) mg/dL Creatinine 3.2 H (0.6-1.2) mg/dL Glucose 116 H (65-100) mg/dL Calcium 8.2 L (8.4-10.2) mg/dL Adrenal panel 04/19/21 Range/Units 04:00 Sodium 138 (137-145) mmol/L Potassium 5.3 H (3.6-5.0) mmol/L Chloride 100.3 (98-107) mmol/L Carbon Dioxide 24 (22-30) mmol/L BUN 102 H (7-17) mg/dL Creatinine 3.2 H (0.6-1.2) mg/dL Glucose 116 H (65-100) mg/dL Calcium 8.2 L (8.4-10.2) mg/dL Assessment and Plan - Patient Problems (1) Respiratory failure Current Visit: Yes Status: Acute Plan to address problem: 1) Tracheostomy and PEG pending OR availability and HD status
[2021-04-19] MEDS ORDERED: SODIUM POLYSTYRENE 15 GM/60 ML ORAL LIQD PO SCH (15:30)
[2021-04-20] MEDS: fentaNYL DRIP Premix 2,000 MCG/100 ML BAG IV SCH ×7 (00:29→22:02)
[2021-04-20] MEDS: IPRATROPIUM/ALBUTEROL SULFATE 3 ML AMPUL.NEB IH SCH ×4 (01:48→20:15)
[2021-04-20] MEDS: FREE WATER PO SCH ×6 (02:57→22:12)
[2021-04-20 04:59] LABS: Hemoglobin 8.1 gm/dl (10.1-14.3); Mean Corpuscular HGB Conc 32 % (30-34); Mean Corpuscular Volume 95 fl (79-97); Platelet Count 123 K/mm3 (140-440); Red Blood Count 2.64 M/mm3 (3.65-5.03); Red Cell Distribution Width 16.9 % (13.2-15.2)
[2021-04-20 05:08] LABS: INR 1.17 (0.87-1.13)
[2021-04-20 05:09] LABS: Partial Thromboplastin Time 26.3 Sec. (24.2-36.6)
[2021-04-20 05:21] LABS: Calcium 8.5 mg/dL (8.4-10.2)
[2021-04-20] MEDS ORDERED: CALCIUM GLUCONATE 1,000 MG in SODIUM CHLORIDE 0.9% 100 ML IV ONE (05:48)
[2021-04-20] MEDS ORDERED: INSULIN REGULAR, HUMAN 100 UNITS/1 ML IV ONE (05:50)
[2021-04-20] MEDS ORDERED: DEXTROSE 50% IN WATER (25GM) 50 ML SYRINGE IV ONE (05:51)
[2021-04-20] MEDS: INSULIN LISPRO 100 UNIT/ML SUB-Q SCH ×3 (06:34→17:53)
[2021-04-20] MEDS: CALCIUM ACETATE 667 MG CAP FEEDTUBE SCH ×3 (09:24→20:13)
--- NOTE | 2021-04-20 10:29 | Progress Note ---
Subjective Date of service: 04/20/21 Principal diagnosis: Ac hypoxemic resp failure; AE-Asthma; SAI; Crohn's; COVID- 19; Pneumonia Interval history: Impression/Plan: #Acute kidney injury: dialysis dependent plans for HD prn as hemodynamics allow, plans for today if tolerates will follow up lytes Assess daily for needs for additional sessions as hemodynamics Strict input and output Avoid nephrotoxin Renally dose medications Keep MAP > 65 # Hyperkalemia, treat medically, attempt to controlled with HD rec prn kayexalate dosing #Respiratory failure Covid 19 infection currently intubated UF as tolerated with HD, limited by hemodynamic instability #diffuse rash--s/p plasma exchange noted #Overall prognosis remains poor, palliative care appropriate Subjective Principal diagnosis: Ac hypoxemic resp failure; AE-Asthma; SAI; Crohn's; COVID- 19; Pneumonia Interval history: Remains intubated. Objective - Exam exam deferred for preservation of PPE Objective - Vital Signs Vital signs: Vital Signs - 12hr 04/19/21 04/19/21 04/19/21 22:30 22:46 23:00 Temperature Pulse Rate 122 H 119 H 117 H Pulse Rate [ Anterior Bilateral Throughout] Pulse Rate [ From Monitor] Respiratory 12 11 L 14 Rate Respiratory Rate [Anterior Bilateral Throughout] Blood Pressure O2 Sat by Pulse 99 100 100 Oximetry 04/19/21 04/19/21 04/19/21 23:16 23:24 23:30 Temperature Pulse Rate 115 H 114 H 115 H Pulse Rate [ Anterior Bilateral Throughout] Pulse Rate [ From Monitor] Respiratory 12 13 11 L Rate Respiratory Rate [Anterior Bilateral Throughout] Blood Pressure O2 Sat by Pulse 98 98 98 Oximetry 04/19/21 04/19/21 04/19/21 23:33 23:46 23:53 Temperature 99 F Pulse Rate 114 H 111 H Pulse Rate [ Anterior Bilateral Throughout] Pulse Rate [ From Monitor] Respiratory 13 Rate Respiratory Rate [Anterior Bilateral Throughout] Blood Pressure 117/57 O2 Sat by Pulse 98 98 Oximetry 04/20/21 04/20/21 04/20/21 00:00 00:16 00:30 Temperature Pulse Rate 110 H 108 H 101 H Pulse Rate [ Anterior Bilateral Throughout] Pulse Rate [ 135 H From Monitor] Respiratory 17 24 12 Rate Respiratory Rate [Anterior Bilateral Throughout] Blood Pressure O2 Sat by Pulse 99 99 97 Oximetry 04/20/21 04/20/21 04/20/21 00:46 01:00 01:16 Temperature Pulse Rate 102 H 104 H 106 H Pulse Rate [ Anterior Bilateral Throughout] Pulse Rate [ From Monitor] Respiratory 12 15 11 L Rate Respiratory Rate [Anterior Bilateral Throughout] Blood Pressure O2 Sat by Pulse 98 97 100 Oximetry 04/20/21 04/20/21 04/20/21 01:30 01:46 01:53 Temperature Pulse Rate 104 H 102 H Pulse Rate [ 10 L Anterior Bilateral Throughout] Pulse Rate [ From Monitor] Respiratory 19 9 L Rate Respiratory 30 H Rate [Anterior Bilateral Throughout] Blood Pressure O2 Sat by Pulse 100 100 Oximetry 04/20/21 04/20/21 04/20/21 02:00 02:16 02:30 Temperature Pulse Rate 106 H 101 H 95 H Pulse Rate [ Anterior Bilateral Throughout] Pulse Rate [ From Monitor] Respiratory 27 H 30 H 30 H Rate Respiratory Rate [Anterior Bilateral Throughout] Blood Pressure O2 Sat by Pulse 100 100 100 Oximetry 04/20/21 04/20/21 04/20/21 02:45 03:00 03:16 Temperature Pulse Rate 94 H 97 H 98 H Pulse Rate [ Anterior Bilateral Throughout] Pulse Rate [ From Monitor] Respiratory 30 H 30 H 30 H Rate Respiratory Rate [Anterior Bilateral Throughout] Blood Pressure O2 Sat by Pulse 100 100 100 Oximetry 04/20/21 04/20/21 04/20/21 03:30 03:46 03:58 Temperature 99.1 F Pulse Rate 113 H Pulse Rate [ Anterior Bilateral Throughout] Pulse Rate [ From Monitor] Respiratory 16 Rate Respiratory Rate [Anterior Bilateral Throughout] Blood Pressure O2 Sat by Pulse 100 100 Oximetry 04/20/21 04/20/21 04/20/21 04:00 04:16 04:30 Temperature Pulse Rate 114 H 109 H 104 H Pulse Rate [ Anterior Bilateral Throughout] Pulse Rate [ 135 H From Monitor] Respiratory 20 10 L 0 L Rate Respiratory Rate [Anterior Bilateral Throughout] Blood Pressure O2 Sat by Pulse 100 100 100 Oximetry 04/20/21 04/20/21 04/20/21 04:46 04:55 05:00 Temperature Pulse Rate 97 H 99 H 116 H Pulse Rate [ Anterior Bilateral Throughout] Pulse Rate [ From Monitor] Respiratory 0 L 13 Rate Respiratory Rate [Anterior Bilateral Throughout] Blood Pressure 93/45 O2 Sat by Pulse 100 100 98 Oximetry 04/20/21 04/20/21 04/20/21 05:16 05:30 05:46 Temperature Pulse Rate 110 H 105 H 105 H Pulse Rate [ Anterior Bilateral Throughout] Pulse Rate [ From Monitor] Respiratory 8 L 15 9 L Rate Respiratory Rate [Anterior Bilateral Throughout] Blood Pressure O2 Sat by Pulse 99 100 98 Oximetry 04/20/21 04/20/21 04/20/21 06:00 06:16 06:30 Temperature Pulse Rate 99 H 96 H 96 H Pulse Rate [ Anterior Bilateral Throughout] Pulse Rate [ From Monitor] Respiratory 30 H 30 H 26 H Rate Respiratory Rate [Anterior Bilateral Throughout] Blood Pressure O2 Sat by Pulse 99 100 100 Oximetry 04/20/21 04/20/21 04/20/21 06:46 07:00 07:16 Temperature Pulse Rate 98 H 95 H 101 H Pulse Rate [ Anterior Bilateral Throughout] Pulse Rate [ From Monitor] Respiratory 28 H 18 21 Rate Respiratory Rate [Anterior Bilateral Throughout] Blood Pressure O2 Sat by Pulse 98 100 100 Oximetry 04/20/21 04/20/21 04/20/21 07:30 07:46 08:00 Temperature 97.9 F Pulse Rate 104 H 103 H 93 H Pulse Rate [ Anterior Bilateral Throughout] Pulse Rate [ 135 H From Monitor] Respiratory 11 L 11 L 27 H Rate Respiratory Rate [Anterior Bilateral Throughout] Blood Pressure O2 Sat by Pulse 100 100 100 Oximetry 04/20/21 04/20/21 04/20/21 08:16 08:30 08:35 Temperature Pulse Rate 101 H 100 H Pulse Rate [ 100 H Anterior Bilateral Throughout] Pulse Rate [ From Monitor] Respiratory 21 20 Rate Respiratory 30 H Rate [Anterior Bilateral Throughout] Blood Pressure 129/67 O2 Sat by Pulse 100 100 Oximetry 04/20/21 04/20/21 04/20/21 08:46 09:00 09:16 Temperature Pulse Rate 101 H 103 H 93 H Pulse Rate [ Anterior Bilateral Throughout] Pulse Rate [ From Monitor] Respiratory 22 17 30 H Rate Respiratory Rate [Anterior Bilateral Throughout] Blood Pressure O2 Sat by Pulse 100 100 100 Oximetry 04/20/21 04/20/21 04/20/21 09:30 09:46 09:59 Temperature 97.9 F Pulse Rate 103 H 95 H Pulse Rate [ Anterior Bilateral Throughout] Pulse Rate [ From Monitor] Respiratory 24 18 Rate Respiratory Rate [Anterior Bilateral Throughout] Blood Pressure O2 Sat by Pulse 97 100 Oximetry - Lab 04/20/21 04:30 04/20/21 04:30 Most recent lab results ABG pH 7.301 (7.320-7.450) L 04/19/21 03:09 ABG pCO2 68.6 mm Hg 04/13/21 03:52 ABG pO2 98.9 mm Hg (80.0-90.0) H 04/13/21 03:52 ABG HCO3 25.5 mmol/L (20.0-26.0) 04/13/21 03:52 ABG O2 Saturation 94.9 (0-100) 04/19/21 03:09 Calcium 8.5 mg/dL (8.4-10.2) 04/20/21 04:30 Phosphorus 8.30 mg/dL (2.5-4.5) H 04/20/21 04:30 Magnesium 2.20 mg/dL (1.7-2.3) 04/20/21 04:30 Urine Creatinine 40.1 mg/dL (0.1-20.0) H 03/14/21 17:50 Urine Sodium 124 mmol/L 03/14/21 17:50 Medications & Allergies - Medications Allergies/Adverse Reactions: Allergies oxycodone HCl [From Percocet] Allergy (Severe, Verified 03/30/21 14:01) Swelling cefepime Allergy (Verified 04/06/21 13:38) Rash hydrocodone bitartrate [From Vicodin] Allergy (Verified 03/31/21 08:20) Swelling ALLERGY TO TYLENOL VS OXYCODONE ACTIVE ORDER REMOVED FROM [facility] SINCE UNABLE TO CONFIRM WITH FAMILY Home Medications: Home Medications Medication Instructions Recorded Confirmed Last Taken Type Chlorhexidine Mouthwash [Peridex] 15 ml MM BID #1 bottle 10/11/20 03/13/21 Unknown Rx Clindamycin [Clindamycin CAP] 300 mg PO Q8H #21 cap 10/11/20 03/13/21 Unknown Rx Naproxen 500 mg PO Q12H PRN #12 tablet 10/11/20 03/13/21 Unknown Rx Butalb/Acetamin/Caff 50-325-40 1 - 2 tab PO Q6HR PRN #15 tab 12/05/20 03/13/21 Unknown Rx [Fioricet 50-325-40] Famotidine [Pepcid] 20 mg PO BID #30 tablet 12/05/20 03/13/21 Unknown Rx Ketorolac [Toradol] 10 mg PO Q8H PRN #20 tablet 12/05/20 03/13/21 Unknown Rx Ondansetron [Zofran Odt] 4 mg PO Q6HR PRN #20 tab.rapdis 12/05/20 03/13/21 Unknown Rx Albuterol Sulfate [Proair 90 mcg IH Q4HR PRN #2 aer.pow.ba 01/01/21 03/13/21 Unknown Rx Respiclick] Mupirocin [Bactroban 2% OINT] 1 applic TP BID 7 Days #1 tube 01/01/21 03/13/21 Unknown Rx Triamcinolone Aceton 0.1% (Nf) 1 applic TP BID 14 Days #1 tube 01/01/21 03/13/21 Unknown Rx [Kenalog (NF)] predniSONE [Deltasone] 40 mg PO QDAY #8 tab 01/01/21 03/13/21 Unknown Rx Active Medications: Generic Name Dose Route Start Last Admin Trade Name Freq PRN Reason Stop Dose Admin Acetaminophen 650 mg 03/31/21 12:41 04/19/21 21:23 Acetaminophen 325 Mg/10.15 Ml Oral Liqd Unit Dose FEEDTUBE 650 mg Q6H PRN Administration TEMP >/=100.4 Albumin Human 25 gm 04/01/21 08:19 04/01/21 16:23 Albumin Human 25% (25 Gm/100 Ml) Inj IV 25 gm KARLOS PRN Administration Hypotension Albuterol 2.5 mg 03/19/21 00:53 Albuterol 2.5 Mg/3 Ml Nebu IH Q4HRT PRN Shortness Of Breath Albuterol/Ipratropium 1 ampul 03/19/21 08:00 04/20/21 08:35 Ipratropium/Albuterol Sulfate 3 Ml Ampul.Neb IH 1 ampul Q6HRT INESSA Administration Lipase/Protease/Amylase 1 each 04/09/21 17:17 Lipase 10,500/Protease 25,000/Amylase 43,750 (Units) Dr Cap FEEDTUBE PRN PRN For Clogged Feeding Tube Calcium Acetate 1,334 mg 04/03/21 20:00 04/20/21 09:24 Calcium Acetate 667 Mg Cap FEEDTUBE Not Given TID INESSA Dextrose 50 ml 03/14/21 11:02 03/15/21 11:40 Dextrose 50% In Water (25gm) 50 Ml Syringe IV 50 ml Q30MIN PRN Administration Hypoglycemia Protocol Famotidine 10 mg 03/17/21 22:00 04/19/21 21:19 Famotidine 10 Mg Tab PO 10 mg BID INESSA Administration Fentanyl 50 mcg 04/15/21 11:48 04/18/21 18:58 Fentanyl 100 Mcg/2 Ml Inj IV 50 mcg Q10MIN PRN Administration ANALGESIA Hydrocortisone Sodium Succinate 50 mg 04/18/21 10:00 04/19/21 21:26 Hydrocortisone Sod Succ 100 Mg/2 Ml Vial IV 04/21/21 22:01 50 mg Q12H INESSA Administration Hydrocortisone Sodium Succinate 25 mg 04/22/21 10:00 Hydrocortisone Sod Succ 100 Mg/2 Ml Vial IV 04/25/21 09:59 QDAY INESSA Hydrophilic Ointment 1 applic 03/14/21 17:50 04/18/21 19:02 Lip Therapy Vaseline TP 1 applic Q2HR PRN Administration Dry Lips Hydrophilic Ointment 1 applic 04/15/21 13:00 04/19/21 21:19 Aquaphor Ointment TP 1 applic Q12HR INESSA Administration Midazolam HCl 100 mg/ Sodium 100 mls @ 1 mls/hr 03/30/21 15:00 04/20/21 00:18 Chloride IV 6 mg/hr TITR INESSA 6 mls/hr Titration Protocol 1 MG/HR Vasopressin 20 unit/ Sodium 101 mls @ 9.09 mls/hr 03/30/21 20:00 04/18/21 02:04 Chloride IV 0.03 units/min TITR INESSA 9.09 mls/hr Administration 0.03 UNITS/MIN Phenylephrine HCl 100 mg/ 100 mls @ 3 mls/hr 03/31/21 04:00 04/06/21 07:58 Sodium Chloride IV 0 mcg/min TITR INESSA 0 mls/hr Titration Protocol 50 MCG/MIN Propofol 1,000 mg in 100 mls @ 4.26 mls/hr 04/07/21 13:00 04/12/21 12:52 Diprivan 10 Mg/Ml IV 0 mcg/kg/min TITR INESSA 0 mls/hr Titration Protocol 5 MCG/KG/MIN Sodium Chloride 1,000 mls @ 1 mls/hr 04/14/21 16:45 04/14/21 16:57 Nacl 0.9% 1000 Ml IV 1 mls/hr DIRECT INESSA Administration NORepinephrine/NS 8 MG-250 ML 8 mg in 250 mls @ 3.75 mls/hr 04/15/21 12:00 04/19/21 08:20 Norepinephrine/Ns 8 Mg-250 Ml (Double Conc) IV 3 mcg/min TITRATE INESSA 5.625 mls/hr Titration Protocol 2 MCG/MIN Fentanyl Citrate 2,000 mcg in 100 mls @ 7.1 mls/hr 04/15/21 13:00 04/20/21 10:24 Fentanyl Drip Premix IV 4 mcg/kg/hr TITR INESSA 28.4 mls/hr Administration Protocol 1 MCG/KG/HR Sodium Chloride 100 mls @ 999 mls/hr 04/18/21 14:26 Nacl 0.9% IV KARLOS PRN Hypotension Insulin Human Lispro 0 unit 03/14/21 12:00 04/20/21 06:34 Insulin Lispro 100 Unit/Ml SUB-Q Not Given Q6HR INESSA Protocol Lorazepam 1 mg 03/13/21 19:40 04/18/21 18:58 Lorazepam 2 Mg/Ml Vial IV 1 mg Q4H PRN Administration Anxiety Multi-Ingred Cream/Lotion/Oil/Oint 1 applic 03/14/21 17:50 04/16/21 23:02 Mineral Oil/Petrolatum, White Ophth Oint 3.5 Gm OU 1 applic Q4HR PRN Administration Dry Eye(s) Ondansetron HCl 4 mg 03/13/21 19:30 03/21/21 12:05 Ondansetron 4 Mg/2 Ml Inj IV 4 mg Q8H PRN Administration Nausea And Vomiting Quetiapine Fumarate 300 mg 04/06/21 22:00 04/19/21 21:20 Quetiapine 100 Mg Tab PO 300 mg BID INESSA Administration Senna/Docusate Sodium 1 tab 03/14/21 22:00 04/19/21 21:20 Sennosides/Docusate Sodium 8.6/50 Mg Tab FEEDTUBE Not Given BID INESSA Simple Syrup 15 ml 04/09/21 17:17 Simple Syrup 15 Ml FEEDTUBE PRN PRN Hypoglycemia Simple Syrup 30 ml 04/09/21 17:17 Simple Syrup 15 Ml FEEDTUBE PRN PRN Hypoglycemia Sodium Bicarbonate 325 mg 04/09/21 17:17 Sodium Bicarbonate 325 Mg Tab FEEDTUBE PRN PRN For Clogged Feeding Tube Sodium Chloride 10 ml 03/13/21 22:00 04/19/21 21:27 Sodium Chloride 0.9% 10 Ml Flush Syringe IV 10 ml BID INESSA Administration Sodium Chloride 10 ml 03/13/21 19:30 04/17/21 05:34 Sodium Chloride 0.9% 10 Ml Flush Syringe IV 10 ml PRN PRN Administration LINE FLUSH
--- NOTE | 2021-04-20 10:47 | Progress Note ---
Assessment and Plan - Patient Problems (1) Respiratory failure Current Visit: Yes Status: Acute Plan to address problem: 1) Scheduled for HD today. Will proceed with trach/PEG tomorrow. Subjective Date of service: 04/20/21 Patient Reports: Positive: no new complaints Objective Vital Signs - 12hr 04/19/21 04/19/21 04/19/21 23:00 23:16 23:24 Temperature Pulse Rate 117 H 115 H 114 H Pulse Rate [ Anterior Bilateral Throughout] Pulse Rate [ From Monitor] Respiratory 14 12 13 Rate Respiratory Rate [Anterior Bilateral Throughout] Blood Pressure O2 Sat by Pulse 100 98 98 Oximetry 04/19/21 04/19/21 04/19/21 23:30 23:33 23:46 Temperature Pulse Rate 115 H 114 H 111 H Pulse Rate [ Anterior Bilateral Throughout] Pulse Rate [ From Monitor] Respiratory 11 L 13 Rate Respiratory Rate [Anterior Bilateral Throughout] Blood Pressure 117/57 O2 Sat by Pulse 98 98 98 Oximetry 04/19/21 04/20/21 04/20/21 23:53 00:00 00:16 Temperature 99 F Pulse Rate 110 H 108 H Pulse Rate [ Anterior Bilateral Throughout] Pulse Rate [ 135 H From Monitor] Respiratory 17 24 Rate Respiratory Rate [Anterior Bilateral Throughout] Blood Pressure O2 Sat by Pulse 99 99 Oximetry 04/20/21 04/20/21 04/20/21 00:30 00:46 01:00 Temperature Pulse Rate 101 H 102 H 104 H Pulse Rate [ Anterior Bilateral Throughout] Pulse Rate [ From Monitor] Respiratory 12 12 15 Rate Respiratory Rate [Anterior Bilateral Throughout] Blood Pressure O2 Sat by Pulse 97 98 97 Oximetry 04/20/21 04/20/21 04/20/21 01:16 01:30 01:46 Temperature Pulse Rate 106 H 104 H 102 H Pulse Rate [ Anterior Bilateral Throughout] Pulse Rate [ From Monitor] Respiratory 11 L 19 9 L Rate Respiratory Rate [Anterior Bilateral Throughout] Blood Pressure O2 Sat by Pulse 100 100 100 Oximetry 04/20/21 04/20/21 04/20/21 01:53 02:00 02:16 Temperature Pulse Rate 106 H 101 H Pulse Rate [ 10 L Anterior Bilateral Throughout] Pulse Rate [ From Monitor] Respiratory 27 H 30 H Rate Respiratory 30 H Rate [Anterior Bilateral Throughout] Blood Pressure O2 Sat by Pulse 100 100 Oximetry 04/20/21 04/20/21 04/20/21 02:30 02:45 03:00 Temperature Pulse Rate 95 H 94 H 97 H Pulse Rate [ Anterior Bilateral Throughout] Pulse Rate [ From Monitor] Respiratory 30 H 30 H 30 H Rate Respiratory Rate [Anterior Bilateral Throughout] Blood Pressure O2 Sat by Pulse 100 100 100 Oximetry 04/20/21 04/20/21 04/20/21 03:16 03:30 03:46 Temperature Pulse Rate 98 H 113 H Pulse Rate [ Anterior Bilateral Throughout] Pulse Rate [ From Monitor] Respiratory 30 H 16 Rate Respiratory Rate [Anterior Bilateral Throughout] Blood Pressure O2 Sat by Pulse 100 100 100 Oximetry 04/20/21 04/20/21 04/20/21 03:58 04:00 04:16 Temperature 99.1 F Pulse Rate 114 H 109 H Pulse Rate [ Anterior Bilateral Throughout] Pulse Rate [ 135 H From Monitor] Respiratory 20 10 L Rate Respiratory Rate [Anterior Bilateral Throughout] Blood Pressure O2 Sat by Pulse 100 100 Oximetry 04/20/21 04/20/21 04/20/21 04:30 04:46 04:55 Temperature Pulse Rate 104 H 97 H 99 H Pulse Rate [ Anterior Bilateral Throughout] Pulse Rate [ From Monitor] Respiratory 0 L 0 L Rate Respiratory Rate [Anterior Bilateral Throughout] Blood Pressure 93/45 O2 Sat by Pulse 100 100 100 Oximetry 04/20/21 04/20/21 04/20/21 05:00 05:16 05:30 Temperature Pulse Rate 116 H 110 H 105 H Pulse Rate [ Anterior Bilateral Throughout] Pulse Rate [ From Monitor] Respiratory 13 8 L 15 Rate Respiratory Rate [Anterior Bilateral Throughout] Blood Pressure O2 Sat by Pulse 98 99 100 Oximetry 04/20/21 04/20/21 04/20/21 05:46 06:00 06:16 Temperature Pulse Rate 105 H 99 H 96 H Pulse Rate [ Anterior Bilateral Throughout] Pulse Rate [ From Monitor] Respiratory 9 L 30 H 30 H Rate Respiratory Rate [Anterior Bilateral Throughout] Blood Pressure O2 Sat by Pulse 98 99 100 Oximetry 04/20/21 04/20/21 04/20/21 06:30 06:46 07:00 Temperature Pulse Rate 96 H 98 H 95 H Pulse Rate [ Anterior Bilateral Throughout] Pulse Rate [ From Monitor] Respiratory 26 H 28 H 18 Rate Respiratory Rate [Anterior Bilateral Throughout] Blood Pressure O2 Sat by Pulse 100 98 100 Oximetry 04/20/21 04/20/21 04/20/21 07:16 07:30 07:46 Temperature Pulse Rate 101 H 104 H 103 H Pulse Rate [ Anterior Bilateral Throughout] Pulse Rate [ From Monitor] Respiratory 21 11 L 11 L Rate Respiratory Rate [Anterior Bilateral Throughout] Blood Pressure O2 Sat by Pulse 100 100 100 Oximetry 04/20/21 04/20/21 04/20/21 08:00 08:16 08:30 Temperature 97.9 F Pulse Rate 93 H 101 H 100 H Pulse Rate [ Anterior Bilateral Throughout] Pulse Rate [ 135 H From Monitor] Respiratory 27 H 21 20 Rate Respiratory Rate [Anterior Bilateral Throughout] Blood Pressure 129/67 O2 Sat by Pulse 100 100 100 Oximetry 04/20/21 04/20/21 04/20/21 08:35 08:46 09:00 Temperature Pulse Rate 101 H 103 H Pulse Rate [ 100 H Anterior Bilateral Throughout] Pulse Rate [ From Monitor] Respiratory 22 17 Rate Respiratory 30 H Rate [Anterior Bilateral Throughout] Blood Pressure O2 Sat by Pulse 100 100 Oximetry 04/20/21 04/20/21 04/20/21 09:16 09:30 09:46 Temperature Pulse Rate 93 H 103 H 95 H Pulse Rate [ Anterior Bilateral Throughout] Pulse Rate [ From Monitor] Respiratory 30 H 24 18 Rate Respiratory Rate [Anterior Bilateral Throughout] Blood Pressure O2 Sat by Pulse 100 97 100 Oximetry 04/20/21 09:59 Temperature 97.9 F Pulse Rate Pulse Rate [ Anterior Bilateral Throughout] Pulse Rate [ From Monitor] Respiratory Rate Respiratory Rate [Anterior Bilateral Throughout] Blood Pressure O2 Sat by Pulse Oximetry - Labs 04/20/21 04:30 04/20/21 04:30 Diabetes panel 04/20/21 Range/Units 04:30 Sodium 136 L (137-145) mmol/L Potassium 5.5 H (3.6-5.0) mmol/L Chloride 99.3 (98-107) mmol/L Carbon Dioxide 22 (22-30) mmol/L BUN 111 H (7-17) mg/dL Creatinine 3.6 H (0.6-1.2) mg/dL Glucose 130 H (65-100) mg/dL Calcium 8.5 (8.4-10.2) mg/dL Calcium panel 04/20/21 Range/Units 04:30 Calcium 8.5 (8.4-10.2) mg/dL Phosphorus 8.30 H (2.5-4.5) mg/dL Pituitary panel 04/20/21 Range/Units 04:30 Sodium 136 L (137-145) mmol/L Potassium 5.5 H (3.6-5.0) mmol/L Chloride 99.3 (98-107) mmol/L Carbon Dioxide 22 (22-30) mmol/L BUN 111 H (7-17) mg/dL Creatinine 3.6 H (0.6-1.2) mg/dL Glucose 130 H (65-100) mg/dL Calcium 8.5 (8.4-10.2) mg/dL Adrenal panel 04/20/21 Range/Units 04:30 Sodium 136 L (137-145) mmol/L Potassium 5.5 H (3.6-5.0) mmol/L Chloride 99.3 (98-107) mmol/L Carbon Dioxide 22 (22-30) mmol/L BUN 111 H (7-17) mg/dL Creatinine 3.6 H (0.6-1.2) mg/dL Glucose 130 H (65-100) mg/dL Calcium 8.5 (8.4-10.2) mg/dL
--- NOTE | 2021-04-20 11:26 | Progress Note ---
<ANCELMO GONZALEZ - Last Filed: 04/20/21 17:58> Assessment and Plan Assessment and plan: This is a 31-year-old female with asthma, morbid obesity and Crohn's disease admitted for COVID-19 pneumonia and and acute renal failure Hospital Course to Date: --- 04/02: plasma exchange, tessa on sedatives and vasopressor support, HD for ultrafiltration 04/03: remains on artic sun but water temp noted to be in the 30s today. Completed plasmapheresis x2 and is now on steroid taper however minimal change noted to rash/discoloration. Eyes are more clear today but remain red under lids (tops of eye). Acidosis noted on ABG. Hyperkalemia and hyperphosphatemeia persists. Sedation increased for RR in to the 40s-50s and vasopressors being titrated as tolerated. 04/04: Patient receiving 1 unit PRBC per heme's recommendation, increased respiratory effort noted, patient is acidotic on ABG and given 1 amp of bicarb in addition to bicarb drip, sedation increased for vent synchrony. No HD per nephrology given tachycardia. Seroquel started. 04/05: Patient on the vent and sedated, still on 3 pressors. Patient to wean off propofol gtt, seroquel increased. Patient afebrile overnight, however artic sun is still in place. Will attempt to take off the cooling blanket today, will continue to assess for fever curve. Continue current IV Abx therapy per ID. Plan for HD today per Nephro. Patient's family at the bedside, thoroughly discussed patient's condition and overall poor prognosis. All questions and concerns were addressed. Team will continue to f/u with family with further updates. 04/06: Patient remains sedated and on the vent, still on fent and versed, propofol was weaned off. Low Hbg this am, 2 units of PRBCs ordered. Patient febrile overnight, patient completed IV abx course, leukocytosis downtrending. c/f for possible drug fever vs DVT, BLE doppler reordered to R/O DVT. Patient remains on high dose pressors, wean pressors as tolerated for MAP of 65. 04/07: Patient appears to be in distress thi am, tachypneic and tachycardic, with increased work of breathing. Propofol stopped this am. IV push versed given and versed gtt was increased to max. D/w CCM plan to possibly restart propofol since patient is not tolerating sedation wean. Patient remains febrile througho ut, pancultured yesterday by ID and IV abx was restarted. Overall poor prognosis at this time. Patient's mother and siblings at the bedside were update on patient's status. Plan for possible family meeting with the care team Monday. 04/08: Patient with worsening CXR this am, increased of vent setting overnight, respiratory acidosis from this am ABG. Patient remains febrile, IV ABx switched to Merrem for VAP coverage, ID is following. Patient remains on sedation and on pressors. Low hemoglobin this am, 1unit of PRBCs ordered. Hyperkalemia noted, per Nephro it is stable no intervention at this time plan for HD tomorrow. Spoke with patient's mom, meeting postponed for possibly next week, case management to arrange. Hospitalist also called and updated patient's mother. Team will continue to follow up. 04/09: Patient condition remains unchanged, on the vent, on sedation, and on 2 pressors. Still febrile, on IV Abx, X1 set of fungal blood culture ordered. D/w ID recommended to start micafungin 100mg Qday. Hyperkalemic this am, plan for HD today. 04/10: VENICE overnight. Patient remains on the vent and sedated. Afebrile overnight, stress steroids added, pressors requirement is going down. HD overnight 3L out, plan for HD again today. Continue IV Abx and antifungal, F/u on culture data. 04/11: Patient remains on the vent and sedated, on minimal pressors this am. Tachycardic HR in the 130-140s this am. Per RN 4L out in HD yesterday, X1 dose of 25% Albumin given. Bloody drainage with clots also noted from patient nose, mouth, and ETT, Hbg 7 this am. Will hold AC for now, serial H&H ordered, transfuse if Hbg less than 7. 04/12: Patient was able to get HD today, Levaquin was stopped by ID. Consider CT chest/abdomen/pelvis when feasible per ID. Patient remains tachycardic. Was febrile most of the day however temperature decreased with icing and tylenol. 04/13: Patient had a CT chest, abdomen/pelvis with oral contrast and CT head today. Patient received 1 unit PRBC today given down trending of H/H with continual bloody drainage from mouth/nose. Patient will receive hemodialysis today. Patient started on Benadryl every 6, received 1 g of Solu-Medrol x1 for apparent angioedema post CT with contrast. 04/14: family meeting today with Dr. Noble. Continue supportive care. Thrombocytopenia today and given 1 units platelets. Vasopressors where weaned off overnight but restarted this morning for low maps. Will consider trach/peg next week with lower vent settings. 04/15: started taper on steroids, 1 units prbc per hem/onc, holding HD today per nephrology for ST. Still febrile, will reculture today. 04/16: Was able to be titrated off Levophed today. Was taken off vaso overnight and this was restarted today which briefly helped HR which was losw 100s. Weaning fentanyl and Versed as tolerated. HD today. Patient tachy this afternoon. 04/17: 2 units PRBC ordered for today. Still remains on vasopressin. HIT positive but anticoagulation withheld due to persistent thrombocytopenia and bleeding. 04/18: Patient able to be weaned off of vasopressors but remains on Versed for sedation. Sinus tachycardia on monitor. Plt and h/h improved. 04/19: Patient on minimal vent settings, peep dropped to 8 by [facility]. Remains on sedation and on low dose Levophed this am. Surgery consulted for possible trach and PEG. Hyperkalemia from this am lab, plan for HD today. H&H and platelets remains stable, will continue to monitor. 04/20: VENICE overnight. Patient remains intubated and sedated, RASS 0 to -2. No longer on pressors, afebrile this am. Trach and PEG postponed for tomorrow. Pending HD today. Assessment and Plan #Neuro: Sedated - Intubated and sedated on fentanyl and versed, RASS -2 to -3 - On Seroquel - PRN EKG for QTC monitoring - Daily SAT and SBT per [facility] - PRN analgesia for CPOT greater than 3 - Maintenance of sleep-wake cycle #CV: Tachycardia, s/p hypertension now with hypotension - Remains ST on the monitor - Off pressors - Vasopressor on standby - Continue blood pressure monitor per protocol - Maintain MAP above 65 - SCDs for VTE proph #Respiratory: Acute hypoxic respiratory failure #asthma exacerbation #COVID-19 pneumonia/ARDS, #RUL PNA #Bronchospasm (resolved) - ETT on 03/14 - Vent setting: AC/PC- 40%,8,30,max PS60 - S/p Bronc on 04/11 which showed alveolar hemorrhage - AM ABG noted - CCM consulted, appreciate recommendations - Continue IV Steroids and Nebs - VAP bundle addressed - Aspiration precaution HOB above 30 - Daily SBT and SAT trials as tolerated - Daily ABG and CXR per CCM - Continue SPO2 monitoring for SPO2 goal above 92% - Plan for trach and PEG in the am #GI: transaminitis #H/o MO and Crohn's disease -Nutrition consulted, appreciate recommendations -Tube feeding: Nepro at goal -Free water decreased 60 mL every 4 hours -Continue BR: Senokot -Continue PPI #: Acute kidney injury likely secondary to ATN #Hyperkalemia #hyponatremia- resolved - Initial Scr was wnl - Scr as high as 10.8, 5.1 this am - Patient is now anuric - Nephrology consulted, appreciate recommendations - HD initiated 03/15 - K 5.3 this am - Plan for HD again today - Daily weights - Strict intake and output - Avoid nephrotoxic medications; Renally dose medications - Monitor and replace electrolytes as needed #ID:Septic Shock #COVID-19 pneumonia #Leukocytosis - WBcs downtrending, 12.5 this am - Low grade Temp overnight, TMAX 100.8 - Infectious disease consulted, appreciate recommendations - IV Abx course completed -S/p Micafungin started per ID - S/p X1 dose of redemsevir, was D/C due to worsen renal function - S/p X1 dose actemra - Trend COVID-19 inflammatory markers - On Vitamin C/vitamin D/zinc - Daily CBC monitor #Heme: Anemia #Thrombocytopenia #?HUS vs drug reaction #Conjunctival hemorrhage- resolved - s/p plasmapheresis x2 (04/01-04/02) - S/p 10units of PRBCs and 2units of plt - Eliquis restarted on 03/29 - 04/11 Eliquis held, bloody drainage noted from nose, mouth, and ETT - H&H remains stable - Trend CBC - Transfuse hemoglobin less than 7 - SCDs to bilateral lower extremity while in bed - 03/23 BLE duplex US shows no DVT - Repeat BLE doppler negative - 03/22 HIT negative, 04/17 HIT positive #Endo: Hyperglycemia - Hemoglobin A1c 6.3 - SSI Q6hrs - Avoid hypoglycemia - While critically ill target blood glucose of 140-180 The high probability of a clinically significant, sudden or life threatening deterioration of the [Respiratory, Neuro, CV] system(s) required my full and dir ect attention, intervention and personal management. The aggregate critical care time was [60] minutes. This time is in addition to time spent performing reported procedures but includes the following: [x] Data Review and interpretation [x] Patient assessment and monitoring of vital signs [x] Documentation [x] Medication orders and management Disposition Plan: ICU Total Time Spent with Patient (Minutes): 60 History Interval history: Patient is seen and examined at the bedside. Patient remains on the vent and on sedation. Off pressors and aferbile this am. VENICE overnight Hospitalist Physical - Constitutional Vitals: Temp Pulse Resp BP Pulse Ox 97.9 F 99 H 14 129/67 100 04/20/21 09:59 04/20/21 11:00 04/20/21 11:00 04/20/21 08:30 04/20/21 11:00 General appearance: Present: no acute distress, well-nourished, obese, other (Intubated and sedated) - EENT Eyes: Present: PERRL - Respiratory Respiratory effort: labored Respiratory: bilateral: rhonchi, wheezing - Cardiovascular Rhythm: regular Heart Sounds: Present: S1 & S2 - Extremities Extremities: no ischemia, pulses intact, pulses symmetrical Extremity abnormal: edema - Peripheral Assessment Generalized Edema Type: Non-pitting Edema Degree: 2+ Capillary Refill: < 3 seconds Skin Temperature: Warm Peripheral Pulses: within normal limits - Abdominal General gastrointestinal: soft, non-tender, normal bowel sounds - Integumentary Integumentary: Present: warm, dry - Psychiatric Psychiatric: other (Intubated and sedated) - Neurologic Neurologic: other (Open eyes spontanepously, pupils brick and reactive, + gag and cough) - Allied Health Allied health notes reviewed: nursing Results - Labs CBC & Chem 7: 04/20/21 04:30 04/20/21 04:30 Labs: Laboratory Last Values WBC 12.7 K/mm3 (4.5-11.0) H 04/20/21 04:30 RBC 2.64 M/mm3 (3.65-5.03) L 04/20/21 04:30 Hgb 8.1 gm/dl (10.1-14.3) L 04/20/21 04:30 Hct 25.0 % (30.3-42.9) L 04/20/21 04:30 MCV 95 fl (79-97) 04/20/21 04:30 MCH 31 pg (28-32) 04/20/21 04:30 MCHC 32 % (30-34) 04/20/21 04:30 RDW 16.9 % (13.2-15.2) H 04/20/21 04:30 Plt Count 123 K/mm3 (140-440) L 04/20/21 04:30 Lymph % (Auto) 10.7 % (13.4-35.0) L 03/28/21 09:37 Young % (Auto) 5.2 % (0.0-7.3) 03/28/21 09:37 Eos % (Auto) [employer] Electrician 04/07/21 03:50 Baso % (Auto) 0.2 % (0.0-1.8) 03/28/21 09:37 Lymph # (Auto) 1.7 K/mm3 (1.2-5.4) 03/28/21 09:37 Young # (Auto) 0.9 K/mm3 (0.0-0.8) H 03/28/21 09:37 Eos # (Auto) 0.6 K/mm3 (0.0-0.4) H 03/28/21 09:37 Baso # (Auto) 0.0 K/mm3 (0.0-0.1) 03/28/21 09:37 Add Manual Diff Complete 04/17/21 04:42 Total Counted 100 04/17/21 04:42 Seg Neutrophils % 80.0 % (40.0-70.0) H 03/28/21 09:37 Seg Neuts % (Manual) 68.0 % (40.0-70.0) 04/17/21 04:42 Band Neutrophils % 4.0 % 04/17/21 04:42 Lymphocytes % (Manual) 10.0 % (13.4-35.0) L 04/17/21 04:42 Reactive Lymphs % (Man) 2.0 % 04/17/21 04:42 Monocytes % (Manual) 6.0 % (0.0-7.3) 04/17/21 04:42 Eosinophils % (Manual) 3.0 % (0.0-4.3) 04/17/21 04:42 Basophils % (Manual) 2.0 % (0.0-1.8) H 04/03/21 04:30 Metamyelocytes % 6.0 % 04/17/21 04:42 Myelocytes % 1.0 % 04/17/21 04:42 Nucleated RBC % Not Reportable 04/17/21 04:42 Seg Neutrophils # 13.0 K/mm3 (1.8-7.7) H 03/28/21 09:37 Seg Neutrophils # Man 9.6 K/mm3 (1.8-7.7) H 04/17/21 04:42 Band Neutrophils # 0.6 K/mm3 04/17/21 04:42 Lymphocytes # (Manual) 1.4 K/mm3 (1.2-5.4) 04/17/21 04:42 Abs React Lymphs (Man) 0.3 K/mm3 04/17/21 04:42 Monocytes # (Manual) 0.8 K/mm3 (0.0-0.8) 04/17/21 04:42 Eosinophils # (Manual) 0.4 K/mm3 (0.0-0.4) 04/17/21 04:42 Basophils # (Manual) 0.0 K/mm3 (0.0-0.1) 04/17/21 04:42 Metamyelocytes # 0.8 K/mm3 04/17/21 04:42 Myelocytes # 0.1 K/mm3 04/17/21 04:42 Promyelocytes # 0.0 K/mm3 04/17/21 04:42 Blast Cells # 0.0 K/mm3 04/17/21 04:42 WBC Morphology Not Reportable 04/17/21 04:42 Hypersegmented Neuts Not Reportable 04/17/21 04:42 Hyposegmented Neuts Not Reportable 04/17/21 04:42 Hypogranular Neuts Not Reportable 04/17/21 04:42 Smudge Cells Not Reportable 04/17/21 04:42 Toxic Granulation Not Reportable 04/17/21 04:42 Toxic Vacuolation Not Reportable 04/17/21 04:42 Dohle Bodies Not Reportable 04/17/21 04:42 Pelger-Huet Anomaly Not Reportable 04/17/21 04:42 Bridgette Rods Not Reportable 04/17/21 04:42 Platelet Estimate Consistent w auto 04/17/21 04:42 Clumped Platelets Not Reportable 04/17/21 04:42 Plt Clumps, EDTA Not Reportable 04/17/21 04:42 Large Platelets Not Reportable 04/17/21 04:42 Giant Platelets Few 04/17/21 04:42 Platelet Satelliting Not Reportable 04/17/21 04:42 Plt Morphology Comment Not Reportable 04/17/21 04:42 RBC Morphology Not Reportable 04/17/21 04:42 Dimorphic RBCs Not Reportable 04/17/21 04:42 Polychromasia Few 04/17/21 04:42 Hypochromasia Not Reportable 04/17/21 04:42 Poikilocytosis Not Reportable 04/17/21 04:42 Anisocytosis Not Reportable 04/17/21 04:42 Microcytosis Not Reportable 04/17/21 04:42 Macrocytosis Not Reportable 04/17/21 04:42 Spherocytes Few 04/17/21 04:42 Pappenheimer Bodies Not Reportable 04/17/21 04:42 Sickle Cells Not Reportable 04/17/21 04:42 Target Cells Not Reportable 04/17/21 04:42 Tear Drop Cells Not Reportable 04/17/21 04:42 Ovalocytes Not Reportable 04/17/21 04:42 Helmet Cells Not Reportable 04/17/21 04:42 K[place]ede-[place] Bodies Not Reportable 04/17/21 04:42 Lenore Rings Not Reportable 04/17/21 04:42 Balaji Cells Not Reportable 04/17/21 04:42 Bite Cells Not Reportable 04/17/21 04:42 Crenated Cell Not Reportable 04/17/21 04:42 Elliptocytes Not Reportable 04/17/21 04:42 Acanthocytes (Spur) Not Reportable 04/17/21 04:42 Rouleaux Not Reportable 04/17/21 04:42 Hemoglobin C Crystals Not Reportable 04/17/21 04:42 Schistocytes Not Reportable 04/17/21 04:42 Malaria parasites Not Reportable 04/17/21 04:42 Percent Retic 4.52 % (0.78-2.58) H 03/31/21 09:49 Vaibhav Bodies Not Reportable 04/17/21 04:42 Hem Pathologist Commnt No 04/17/21 04:42 PT 16.1 Sec. (12.2-14.9) H 04/20/21 04:30 INR 1.17 (0.87-1.13) H 04/20/21 04:30 APTT 26.3 Sec. (24.2-36.6) 04/20/21 04:30 Fibrinogen 299 mg/dl (211-480) 04/20/21 04:30 D-Dimer 2696.79 ng/mlDDU (0-234) H 04/08/21 04:40 Heparin Anti-Xa, Unfract Negative (Negative) 04/14/21 09:45 ABG pH 7.301 (7.320-7.450) L 04/19/21 03:09 POC ABG pCO2 48.7 mmHg (32.0-48.0) H 04/19/21 03:09 ABG pCO2 68.6 mm Hg 04/13/21 03:52 POC ABG pO2 82.1 mmHg (83-108) L 04/19/21 03:09 ABG pO2 98.9 mm Hg (80.0-90.0) H 04/13/21 03:52 POC ABG HCO3 23.5 04/19/21 03:09 ABG HCO3 25.5 mmol/L (20.0-26.0) 04/13/21 03:52 ABG O2 Saturation 94.9 (0-100) 04/19/21 03:09 ABG O2 Content 10.0 (0.0-44) 04/13/21 03:52 POC ABG Base Excess -2.9 04/19/21 03:09 ABG Base Excess -2.9 mmol/L (-2.0-3.0) L 04/13/21 03:52 ABG Hemoglobin 8.9 (12.0-17.5) L 04/19/21 03:09 ABG Oxyhemoglobin 93.8 (94-98) L 04/19/21 03:09 ABG Carboxyhemoglobin 1.9 % (0.0-5.0) 04/13/21 03:52 ABG Methemoglobin 0.1 (0.0-1.5) 04/19/21 03:09 ABG Sodium 133.9 mmol/L (136.0-145.0) L 04/19/21 03:09 ABG Potassium 5.2 mmol/L (3.40-4.50) H 04/19/21 03:09 ABG Chloride 101.0 mmol/L (98-107) 04/19/21 03:09 ABG Glucose 126 mg/dL (65-95) H 04/19/21 03:09 ABG Lactate Cancelled 04/03/21 20:45 Oxyhemoglobin 94.3 % (95.0-99.0) L 04/13/21 03:52 Carboxyhemoglobin 1.1 (0.5-1.5) 04/19/21 03:09 FiO2 65 % 04/13/21 03:52 FiO2 % 40.0 04/19/21 03:09 Sodium 136 mmol/L (137-145) L 04/20/21 04:30 Potassium 5.5 mmol/L (3.6-5.0) H 04/20/21 04:30 Chloride 99.3 mmol/L (98-107) 04/20/21 04:30 Carbon Dioxide 22 mmol/L (22-30) 04/20/21 04:30 Anion Gap 20 mmol/L 04/20/21 04:30 BUN 111 mg/dL (7-17) H 04/20/21 04:30 Creatinine 3.6 mg/dL (0.6-1.2) H 04/20/21 04:30 Estimated GFR 18 ml/min 04/20/21 04:30 BUN/Creatinine Ratio 31 % 04/20/21 04:30 Glucose 130 mg/dL (65-100) H 04/20/21 04:30 POC Glucose 97 mg/dL (70-105) 04/20/21 08:19 Hemoglobin A1c 6.3 % (4-6) H 03/15/21 05:09 Lactic Acid 0.80 mmol/L (0.7-2.0) 04/07/21 03:50 Calcium 8.5 mg/dL (8.4-10.2) 04/20/21 04:30 Phosphorus 8.30 mg/dL (2.5-4.5) H 04/20/21 04:30 Magnesium 2.20 mg/dL (1.7-2.3) 04/20/21 04:30 Ferritin 151.6 ng/mL (10.0-200.0) 03/18/21 04:30 Total Bilirubin 0.30 mg/dL (0.1-1.2) 04/17/21 10:58 Bilirubin Cancelled 04/03/21 20:45 AST 29 units/L (5-40) 04/17/21 10:58 ALT 44 units/L (7-56) 04/17/21 10:58 Alkaline Phosphatase 79 units/L (35-129) 04/17/21 10:58 Lactate Dehydrogenase 394 units/L (91-180) H 04/05/21 05:20 C-Reactive Protein 26.10 mg/dL (0.00-1.30) H 04/08/21 04:00 Total Protein 5.7 g/dL (6.3-8.2) L 04/17/21 10:58 Albumin 2.1 g/dL (3.9-5) L 04/17/21 10:58 Albumin/Globulin Ratio 0.6 % 04/17/21 10:58 Triglycerides 406 mg/dL (2-149) H 04/11/21 04:15 Serotonin Release Assay TNR 03/22/21 08:20 Procalcitonin < 0.05 ng/mL (<0.15) 03/13/21 15:40 HCG, Qual Negative (Negative) 03/13/21 13:26 Arterial Blood Glucose 126 mg/dL (65-95) H 04/19/21 03:09 Arterial Blood Ionized Calcium 4.4 mg/dL (4.6-5.3) L 04/18/21 00:08 Urine Color Sweta (Yellow) 04/15/21 18:35 Urine Turbidity Cloudy (Clear) 04/15/21 18:35 Urine pH 5.0 (5.0-7.0) 04/15/21 18:35 Ur Specific [place] 1.025 (1.003-1.030) 04/15/21 18:35 Urine Protein >500 mg/dL (Negative) 04/15/21 18:35 Urine Glucose (UA) Neg mg/dL (Negative) 04/15/21 18:35 Urine Ketones Neg mg/dL (Negative) 04/15/21 18:35 Urine Blood Mod (Negative) 04/15/21 18:35 Urine Nitrite Neg (Negative) 04/15/21 18:35 Urine Bilirubin Neg (Negative) 04/15/21 18:35 Urine Urobilinogen < 2.0 mg/dL (<2.0) 04/15/21 18:35 Ur Leukocyte Esterase Mod (Negative) 04/15/21 18:35 Urine WBC (Auto) 156.0 /HPF (0.0-6.0) H 04/15/21 18:35 Urine RBC (Auto) 56.0 /HPF (0.0-6.0) 04/15/21 18:35 U Epithel Cells (Auto) 15.0 /HPF (0-13.0) H 04/15/21 18:35 Urine Bacteria (Auto) 2+ /HPF (Negative) 04/15/21 18:35 Urine WBC Clumps 3+ /HPF 04/15/21 18:35 Ur Renal Epithelial Cell 151 /LPF 04/06/21 Unknown Urine Mucus Few /HPF 04/15/21 18:35 Urine Yeast (Budding) 3+ /HPF 04/15/21 18:35 Urine Creatinine 40.1 mg/dL (0.1-20.0) H 03/14/21 17:50 Urine Sodium 124 mmol/L 03/14/21 17:50 Random Vancomycin 11.9 ug/mL (0-40.0) 04/15/21 07:05 KIMBERLEY Screen Negative (Negative) 04/07/21 08:27 Heparin-induced Plt Ab Positive (Negative) H 04/14/21 09:45 UF Heparin High Dose 0 % Release 04/14/21 09:45 JUAN UFH Low Dose 0.1 1 % Release 04/14/21 09:45 JUAN UFH Low Dose 0.5 0 % Release 04/14/21 09:45 Coronavirus (PCR) Negative (Negative) 04/04/21 09:00 Hepatitis A IgM Ab Non-reactive (NonReactive) 03/15/21 05:09 Hep Bs Antigen Nonreactive (Negative) 03/15/21 05:09 Hep B Core IgM Ab Non-reactive (NonReactive) 03/15/21 05:09 Hepatitis C Antibody Non-reactive (NonReactive) 03/15/21 05:09 Schistocytes Smear None seen 03/31/21 12:11 Blood Type O POSITIVE 04/15/21 12:10 Antibody Screen Positive 04/15/21 12:10 Antibody Identification Anti-E 04/15/21 12:10 Direct Antiglob Test Negative 03/31/21 23:18 NIKOLE, Poly Interpret Negative 03/31/21 23:18 Crossmatch See Detail 04/15/21 12:10 Microbiology: Microbiology 04/15/21 11:19 Peripheral/Venous Blood Culture - Preliminary NO GROWTH AFTER 4 DAYS 04/15/21 11:16 Peripheral/Venous Blood Culture - Preliminary NO GROWTH AFTER 4 DAYS Bazan/IV: Voiding Method Incontinent Active Medications - Current Medications Current Medications: Generic Name Dose Route Start Last Admin Trade Name Freq PRN Reason Stop Dose Admin Acetaminophen 650 mg 03/31/21 12:41 04/19/21 21:23 Acetaminophen 325 Mg/10.15 Ml Oral Liqd Unit Dose FEEDTUBE 650 mg Q6H PRN Administration TEMP >/=100.4 Albumin Human 25 gm 04/01/21 08:19 04/01/21 16:23 Albumin Human 25% (25 Gm/100 Ml) Inj IV 25 gm KARLOS PRN Administration Hypotension Albuterol 2.5 mg 03/19/21 00:53 Albuterol 2.5 Mg/3 Ml Nebu IH Q4HRT PRN Shortness Of Breath Albuterol/Ipratropium 1 ampul 03/19/21 08:00 04/20/21 08:35 Ipratropium/Albuterol Sulfate 3 Ml Ampul.Neb IH 1 ampul Q6HRT INESSA Administration Lipase/Protease/Amylase 1 each 04/09/21 17:17 Lipase 10,500/Protease 25,000/Amylase 43,750 (Units) Cap FEEDTUBE PRN PRN For Clogged Feeding Tube Calcium Acetate 1,334 mg 04/03/21 20:00 04/20/21 09:24 Calcium Acetate 667 Mg Cap FEEDTUBE Not Given TID INESSA Dextrose 50 ml 03/14/21 11:02 03/15/21 11:40 Dextrose 50% In Water (25gm) 50 Ml Syringe IV 50 ml Q30MIN PRN Administration Hypoglycemia Protocol Famotidine 10 mg 03/17/21 22:00 04/19/21 21:19 Famotidine 10 Mg Tab PO 10 mg BID INESSA Administration Fentanyl 50 mcg 04/15/21 11:48 04/18/21 18:58 Fentanyl 100 Mcg/2 Ml Inj IV 50 mcg Q10MIN PRN Administration ANALGESIA Hydrocortisone Sodium Succinate 50 mg 04/18/21 10:00 04/19/21 21:26 Hydrocortisone Sod Succ 100 Mg/2 Ml Vial IV 04/21/21 22:01 50 mg Q12H INESSA Administration Hydrocortisone Sodium Succinate 25 mg 04/22/21 10:00 Hydrocortisone Sod Succ 100 Mg/2 Ml Vial IV 04/25/21 09:59 QDAY INESSA Hydrophilic Ointment 1 applic 03/14/21 17:50 04/18/21 19:02 Lip Therapy Vaseline TP 1 applic Q2HR PRN Administration Dry Lips Hydrophilic Ointment 1 applic 04/15/21 13:00 04/19/21 21:19 Aquaphor Ointment TP 1 applic Q12HR INESSA Administration Midazolam HCl 100 mg/ Sodium 100 mls @ 1 mls/hr 03/30/21 15:00 04/20/21 00:18 Chloride IV 6 mg/hr TITR INESSA 6 mls/hr Titration Protocol 1 MG/HR Vasopressin 20 unit/ Sodium 101 mls @ 9.09 mls/hr 03/30/21 20:00 04/18/21 02:04 Chloride IV 0.03 units/min TITR INESSA 9.09 mls/hr Administration 0.03 UNITS/MIN Phenylephrine HCl 100 mg/ 100 mls @ 3 mls/hr 03/31/21 04:00 04/06/21 07:58 Sodium Chloride IV 0 mcg/min TITR INESSA 0 mls/hr Titration Protocol 50 MCG/MIN Propofol 1,000 mg in 100 mls @ 4.26 mls/hr 04/07/21 13:00 04/12/21 12:52 Diprivan 10 Mg/Ml IV 0 mcg/kg/min TITR INESSA 0 mls/hr Titration Protocol 5 MCG/KG/MIN Sodium Chloride 1,000 mls @ 1 mls/hr 04/14/21 16:45 04/14/21 16:57 Nacl 0.9% 1000 Ml IV 1 mls/hr DIRECT INSESA Administration NORepinephrine/NS 8 MG-250 ML 8 mg in 250 mls @ 3.75 mls/hr 04/15/21 12:00 04/19/21 08:20 Norepinephrine/Ns 8 Mg-250 Ml (Double Conc) IV 3 mcg/min TITRATE INESSA 5.625 mls/hr Titration Protocol 2 MCG/MIN Fentanyl Citrate 2,000 mcg in 100 mls @ 7.1 mls/hr 04/15/21 13:00 04/20/21 10 :24 Fentanyl Drip Premix IV 4 mcg/kg/hr TITR INESSA 28.4 mls/hr Administration Protocol 1 MCG/KG/HR Sodium Chloride 100 mls @ 999 mls/hr 04/18/21 14:26 Nacl 0.9% IV KARLOS PRN Hypotension Insulin Human Lispro 0 unit 03/14/21 12:00 04/20/21 06:34 Insulin Lispro 100 Unit/Ml SUB-Q Not Given Q6HR INESSA Protocol Lorazepam 1 mg 03/13/21 19:40 04/18/21 18:58 Lorazepam 2 Mg/Ml Vial IV 1 mg Q4H PRN Administration Anxiety Multi-Ingred Cream/Lotion/Oil/Oint 1 applic 03/14/21 17:50 04/16/21 23:02 Mineral Oil/Petrolatum, White Ophth Oint 3.5 Gm OU 1 applic Q4HR PRN Administration Dry Eye(s) Ondansetron HCl 4 mg 03/13/21 19:30 03/21/21 12:05 Ondansetron 4 Mg/2 Ml Inj IV 4 mg Q8H PRN Administration Nausea And Vomiting Quetiapine Fumarate 300 mg 04/06/21 22:00 04/19/21 21:20 Quetiapine 100 Mg Tab PO 300 mg BID INESSA Administration Senna/Docusate Sodium 1 tab 03/14/21 22:00 04/19/21 21:20 Sennosides/Docusate Sodium 8.6/50 Mg Tab FEEDTUBE Not Given BID INESSA Simple Syrup 15 ml 04/09/21 17:17 Simple Syrup 15 Ml FEEDTUBE PRN PRN Hypoglycemia Simple Syrup 30 ml 04/09/21 17:17 Simple Syrup 15 Ml FEEDTUBE PRN PRN Hypoglycemia Sodium Bicarbonate 325 mg 04/09/21 17:17 Sodium Bicarbonate 325 Mg Tab FEEDTUBE PRN PRN For Clogged Feeding Tube Sodium Chloride 10 ml 03/13/21 22:00 04/19/21 21:27 Sodium Chloride 0.9% 10 Ml Flush Syringe IV 10 ml BID INESSA Administration Sodium Chloride 10 ml 03/13/21 19:30 04/17/21 05:34 Sodium Chloride 0.9% 10 Ml Flush Syringe IV 10 ml PRN PRN Administration LINE FLUSH Nutrition/Malnutrition Assess - Dietary Evaluation Nutrition/Malnutrition Findings: Nutrition Notes Start: 03/15/21 11:06 Freq: Status: Active Protocol: Document 04/17/21 13:12 CW (Rec: 04/17/21 13:25 CW [id number]) Nutrition Notes Initial or Follow up Reassessment Current Diagnosis Acute Kidney Injury, Hypertension,Respiratory Failure Other Pertinent Diagnosis pneu, Covid 19 Current Diet TF -Glucerna 1.2 Abdullahi (since L 04/14). Labs/Tests K 5.9 bun 112 k 3.6 BG 174 Pertinent Medications Senna Phoslo Solu cortef Height 5 ft 5 in Weight 142 kg Alicia Body Weight (kg) 56.81 BMI 52.0 Weight change and time frame Drastic weight increase. Likely inaccurate. Recommend reweight. Subjective/Other Information Kitchen reports not out of Nepro. Will replace Nepro order. RN reports taht NGT placement needs to be verified . Recommend restart TF when medically feasible. RN reports unable to conduct reweight d/ t lack of bed scale. Will base TF off of UBW and adjust accordingly. Percent of energy/protein needs met: 0%/0% Burn Absent Trauma Absent GI Symptoms None Food Allergy No Skin Integrity/Comment Intact Current % PO Negligible Minimum of two criteria No physical signs of malnutrition #1 Nutrition Diagnosis Swallowing difficulty Etiology respiratory failure As Evidenced by Signs and Symptoms Pt on mechancial vent Diagnosis Progress(for reassessment Continues documentation) Is patient on ventilator? Yes Is Patient Ambulatory and/or Out of Bed No REE-([facility]-confined to bed) 2570.232 Kcal/Kg value to use for calculation 14 Approximate Energy Requirements Using 1988 kcal/Kg Calculation Used for Recommendations Kcal/kg Additional Notes protein need: up to 142 fluid needs: 1.5 L or per MD order Nutrition Intervention Change Diet Order: Continue TF when medically feasible Nutrition Support: Nepro at 45 with a free water flush of 120 ml q4h Kcal 1,944 Protein (gm) 88 Fluid (mL) 785 Goal #1 TF tolerance Goal #2 Meet at least 75% of EER via TF Follow-Up By: 04/19/21 Additional Comments F/U fo TF restart and toelrance <WESLEY LANCASTER - Last Filed: 04/21/21 06:49> Assessment and Plan Assessment and plan: I saw and evaluated the patient. I agree with the findings and the plan of care as documented in the Nurse Practitioner's~note, with the following corrections and additions. Hospitalist Physical - Constitutional Vitals: Temp Pulse Resp BP Pulse Ox 99.0 F 112 H 29 H 151/87 100 04/21/21 03:22 04/21/21 06:15 04/21/21 06:15 04/21/21 05:06 04/21/21 06:15 Results - Labs CBC & Chem 7: 04/21/21 04:00 04/21/21 04:00 Labs: Laboratory Last Values WBC 13.2 K/mm3 (4.5-11.0) H 04/21/21 04:00 RBC 2.65 M/mm3 (3.65-5.03) L 04/21/21 04:00 Hgb 8.2 gm/dl (10.1-14.3) L 04/21/21 04:00 Hct 25.0 % (30.3-42.9) L 04/21/21 04:00 MCV 94 fl (79-97) 04/21/21 04:00 MCH 31 pg (28-32) 04/21/21 04:00 MCHC 33 % (30-34) 04/21/21 04:00 RDW 16.8 % (13.2-15.2) H 04/21/21 04:00 Plt Count 115 K/mm3 (140-440) L 04/21/21 04:00 Lymph % (Auto) 10.7 % (13.4-35.0) L 03/28/21 09:37 Young % (Auto) 5.2 % (0.0-7.3) 03/28/21 09:37 Eos % (Auto) [employer] 04/07/21 03:50 Baso % (Auto) 0.2 % (0.0-1.8) 03/28/21 09:37 Lymph # (Auto) 1.7 K/mm3 (1.2-5.4) 03/28/21 09:37 Young # (Auto) 0.9 K/mm3 (0.0-0.8) H 03/28/21 09:37 Eos # (Auto) 0.6 K/mm3 (0.0-0.4) H 03/28/21 09:37 Baso # (Auto) 0.0 K/mm3 (0.0-0.1) 03/28/21 09:37 Add Manual Diff Complete 04/17/21 04:42 Total Counted 100 04/17/21 04:42 Seg Neutrophils % 80.0 % (40.0-70.0) H 03/28/21 09:37 Seg Neuts % (Manual) 68.0 % (40.0-70.0) 04/17/21 04:42 Band Neutrophils % 4.0 % 04/17/21 04:42 Lymphocytes % (Manual) 10.0 % (13.4-35.0) L 04/17/21 04:42 Reactive Lymphs % (Man) 2.0 % 04/17/21 04:42 Monocytes % (Manual) 6.0 % (0.0-7.3) 04/17/21 04:42 Eosinophils % (Manual) 3.0 % (0.0-4.3) 04/17/21 04:42 Basophils % (Manual) 2.0 % (0.0-1.8) H 04/03/21 04:30 Metamyelocytes % 6.0 % 04/17/21 04:42 Myelocytes % 1.0 % 04/17/21 04:42 Nucleated RBC % Not Reportable 04/17/21 04:42 Seg Neutrophils # 13.0 K/mm3 (1.8-7.7) H 03/28/21 09:37 Seg Neutrophils # Man 9.6 K/mm3 (1.8-7.7) H 04/17/21 04:42 Band Neutrophils # 0.6 K/mm3 04/17/21 04:42 Lymphocytes # (Manual) 1.4 K/mm3 (1.2-5.4) 04/17/21 04:42 Abs React Lymphs (Man) 0.3 K/mm3 04/17/21 04:42 Monocytes # (Manual) 0.8 K/mm3 (0.0-0.8) 04/17/21 04:42 Eosinophils # (Manual) 0.4 K/mm3 (0.0-0.4) 04/17/21 04:42 Basophils # (Manual) 0.0 K/mm3 (0.0-0.1) 04/17/21 04:42 Metamyelocytes # 0.8 K/mm3 04/17/21 04:42 Myelocytes # 0.1 K/mm3 04/17/21 04:42 Promyelocytes # 0.0 K/mm3 04/17/21 04:42 Blast Cells # 0.0 K/mm3 04/17/21 04:42 WBC Morphology Not Reportable 04/17/21 04:42 Hypersegmented Neuts Not Reportable 04/17/21 04:42 Hyposegmented Neuts Not Reportable 04/17/21 04:42 Hypogranular Neuts Not Reportable 04/17/21 04:42 Smudge Cells Not Reportable 04/17/21 04:42 Toxic Granulation Not Reportable 04/17/21 04:42 Toxic Vacuolation Not Reportable 04/17/21 04:42 Dohle Bodies Not Reportable 04/17/21 04:42 Pelger-Huet Anomaly Not Reportable 04/17/21 04:42 Bridgette Rods Not Reportable 04/17/21 04:42 Platelet Estimate Consistent w auto 04/17/21 04:42 Clumped Platelets Not Reportable 04/17/21 04:42 Plt Clumps, EDTA Not Reportable 04/17/21 04:42 Large Platelets Not Reportable 04/17/21 04:42 Giant Platelets Few 04/17/21 04:42 Platelet Satelliting Not Reportable 04/17/21 04:42 Plt Morphology Comment Not Reportable 04/17/21 04:42 RBC Morphology Not Reportable 04/17/21 04:42 Dimorphic RBCs Not Reportable 04/17/21 04:42 Polychromasia Few 04/17/21 04:42 Hypochromasia Not Reportable 04/17/21 04:42 Poikilocytosis Not Reportable 04/17/21 04:42 Anisocytosis Not Reportable 04/17/21 04:42 Microcytosis Not Reportable 04/17/21 04:42 Macrocytosis Not Reportable 04/17/21 04:42 Spherocytes Few 04/17/21 04:42 Pappenheimer Bodies Not Reportable 04/17/21 04:42 Sickle Cells Not Reportable 04/17/21 04:42 Target Cells Not Reportable 04/17/21 04:42 Tear Drop Cells Not Reportable 04/17/21 04:42 Ovalocytes Not Reportable 04/17/21 04:42 Helmet Cells Not Reportable 04/17/21 04:42 Kebede-[place] Bodies Not Reportable 04/17/21 04:42 Lenore Rings Not Reportable 04/17/21 04:42 Benton Cells Not Reportable 04/17/21 04:42 Bite Cells Not Reportable 04/17/21 04:42 Crenated Cell Not Reportable 04/17/21 04:42 Elliptocytes Not Reportable 04/17/21 04:42 Acanthocytes (Spur) Not Reportable 04/17/21 04:42 Rouleaux Not Reportable 04/17/21 04:42 Hemoglobin C Crystals Not Reportable 04/17/21 04:42 Schistocytes Not Reportable 04/17/21 04:42 Malaria parasites Not Reportable 04/17/21 04:42 Percent Retic 4.52 % (0.78-2.58) H 03/31/21 09:49 Vaibhav Bodies Not Reportable 04/17/21 04:42 Hem Pathologist Commnt No 04/17/21 04:42 PT 16.1 Sec. (12.2-14.9) H 04/20/21 04:30 INR 1.17 (0.87-1.13) H 04/20/21 04:30 APTT 26.3 Sec. (24.2-36.6) 04/20/21 04:30 Fibrinogen 299 mg/dl (211-480) 04/20/21 04:30 D-Dimer 2696.79 ng/mlDDU (0-234) H 04/08/21 04:40 Heparin Anti-Xa, Unfract Negative (Negative) 04/14/21 09:45 ABG pH 7.467 pH Units (7.350-7.450) H 04/21/21 05:05 POC ABG pCO2 48.7 mmHg (32.0-48.0) H 04/19/21 03:09 ABG pCO2 34.1 mm Hg 04/21/21 05:05 POC ABG pO2 82.1 mmHg (83-108) L 04/19/21 03:09 ABG pO2 180.7 mm Hg (80.0-90.0) H 04/21/21 05:05 POC ABG HCO3 23.5 04/19/21 03:09 ABG HCO3 24.1 mmol/L (20.0-26.0) 04/21/21 05:05 ABG O2 Saturation 99.2 % (95.0-99.0) H 04/21/21 05:05 ABG O2 Content 12.1 (0.0-44) 04/21/21 05:05 POC ABG Base Excess -2.9 04/19/21 03:09 ABG Base Excess 0.5 mmol/L (-2.0-3.0) 04/21/21 05:05 ABG Hemoglobin 8.6 gm/dl (12.0-16.0) L 04/21/21 05:05 ABG Oxyhemoglobin 93.8 (94-98) L 04/19/21 03:09 ABG Carboxyhemoglobin 2.2 % (0.0-5.0) 04/21/21 05:05 ABG Methemoglobin 0.5 % (0.0-1.5) 04/21/21 05:05 ABG Sodium 133.9 mmol/L (136.0-145.0) L 04/19/21 03:09 ABG Potassium 5.2 mmol/L (3.40-4.50) H 04/19/21 03:09 ABG Chloride 101.0 mmol/L (98-107) 04/19/21 03:09 ABG Glucose 126 mg/dL (65-95) H 04/19/21 03:09 ABG Lactate Cancelled 04/03/21 20:45 Oxyhemoglobin 96.6 % (95.0-99.0) 04/21/21 05:05 Carboxyhemoglobin 1.1 (0.5-1.5) 04/19/21 03:09 FiO2 40 % 04/21/21 05:05 FiO2 % 40.0 04/19/21 03:09 Sodium 137 mmol/L (137-145) 04/21/21 04:00 Potassium 4.5 mmol/L (3.6-5.0) 04/21/21 04:00 Chloride 99.5 mmol/L (98-107) 04/21/21 04:00 Carbon Dioxide 24 mmol/L (22-30) 04/21/21 04:00 Anion Gap 18 mmol/L 04/21/21 04:00 BUN 83 mg/dL (7-17) H 04/21/21 04:00 Creatinine 2.5 mg/dL (0.6-1.2) H 04/21/21 04:00 Estimated GFR 27 ml/min 04/21/21 04:00 BUN/Creatinine Ratio 33 % 04/21/21 04:00 Glucose 133 mg/dL (65-100) H 04/21/21 04:00 POC Glucose 109 mg/dL (70-105) H 04/21/21 05:28 Hemoglobin A1c 6.3 % (4-6) H 03/15/21 05:09 Lactic Acid 0.80 mmol/L (0.7-2.0) 04/07/21 03:50 Calcium 8.5 mg/dL (8.4-10.2) 04/21/21 04:00 Phosphorus 6.60 mg/dL (2.5-4.5) H D 04/21/21 04:00 Magnesium 1.90 mg/dL (1.7-2.3) 04/21/21 04:00 Ferritin 151.6 ng/mL (10.0-200.0) 03/18/21 04:30 Total Bilirubin 0.30 mg/dL (0.1-1.2) 04/17/21 10:58 Bilirubin Cancelled 04/03/21 20:45 AST 29 units/L (5-40) 04/17/21 10:58 ALT 44 units/L (7-56) 04/17/21 10:58 Alkaline Phosphatase 79 units/L (35-129) 04/17/21 10:58 Lactate Dehydrogenase 394 units/L (91-180) H 04/05/21 05:20 C-Reactive Protein 26.10 mg/dL (0.00-1.30) H 04/08/21 04:00 Total Protein 5.7 g/dL (6.3-8.2) L 04/17/21 10:58 Albumin 2.1 g/dL (3.9-5) L 04/17/21 10:58 Albumin/Globulin Ratio 0.6 % 04/17/21 10:58 Triglycerides 406 mg/dL (2-149) H 04/11/21 04:15 Serotonin Release Assay TNR 03/22/21 08:20 Procalcitonin < 0.05 ng/mL (<0.15) 03/13/21 15:40 HCG, Qual Negative (Negative) 03/13/21 13:26 Arterial Blood Glucose 126 mg/dL (65-95) H 04/19/21 03:09 Arterial Blood Ionized Calcium 4.4 mg/dL (4.6-5.3) L 04/18/21 00:08 Urine Color Sweta (Yellow) 04/15/21 18:35 Urine Turbidity Cloudy (Clear) 04/15/21 18:35 Urine pH 5.0 (5.0-7.0) 04/15/21 18:35 Ur Specific [place] 1.025 (1.003-1.030) 04/15/21 18:35 Urine Protein >500 mg/dL (Negative) 04/15/21 18:35 Urine Glucose (UA) Neg mg/dL (Negative) 04/15/21 18:35 Urine Ketones Neg mg/dL (Negative) 04/15/21 18:35 Urine Blood Mod (Negative) 04/15/21 18:35 Urine Nitrite Neg (Negative) 04/15/21 18:35 Urine Bilirubin Neg (Negative) 04/15/21 18:35 Urine Urobilinogen < 2.0 mg/dL (<2.0) 04/15/21 18:35 Ur Leukocyte Esterase Mod (Negative) 04/15/21 18:35 Urine WBC (Auto) 156.0 /HPF (0.0-6.0) H 04/15/21 18:35 Urine RBC (Auto) 56.0 /HPF (0.0-6.0) 04/15/21 18:35 U Epithel Cells (Auto) 15.0 /HPF (0-13.0) H 04/15/21 18:35 Urine Bacteria (Auto) 2+ /HPF (Negative) 04/15/21 18:35 Urine WBC Clumps 3+ /HPF 04/15/21 18:35 Ur Renal Epithelial Cell 151 /LPF 04/06/21 Unknown Urine Mucus Few /HPF 04/15/21 18:35 Urine Yeast (Budding) 3+ /HPF 04/15/21 18:35 Urine Creatinine 40.1 mg/dL (0.1-20.0) H 03/14/21 17:50 Urine Sodium 124 mmol/L 03/14/21 17:50 Random Vancomycin 11.9 ug/mL (0-40.0) 04/15/21 07:05 KIMBERLEY Screen Negative (Negative) 04/07/21 08:27 Heparin-induced Plt Ab Positive (Negative) H 04/14/21 09:45 UF Heparin High Dose 0 % Release 04/14/21 09:45 JUAN UFH Low Dose 0.1 1 % Release 04/14/21 09:45 JUAN UFH Low Dose 0.5 0 % Release 04/14/21 09:45 Coronavirus (PCR) Negative (Negative) 04/04/21 09:00 Hepatitis A IgM Ab Non-reactive (NonReactive) 03/15/21 05:09 Hep Bs Antigen Nonreactive (Negative) 03/15/21 05:09 Hep B Core IgM Ab Non-reactive (NonReactive) 03/15/21 05:09 Hepatitis C Antibody Non-reactive (NonReactive) 03/15/21 05:09 Schistocytes Smear None seen 03/31/21 12:11 Blood Type O POSITIVE 04/15/21 12:10 Antibody Screen Positive 04/15/21 12:10 Antibody Identification Anti-E 04/15/21 12:10 Direct Antiglob Test Negative 03/31/21 23:18 NIKOLE, Poly Interpret Negative 03/31/21 23:18 Crossmatch See Detail 04/15/21 12:10 Microbiology: Microbiology 04/15/21 11:19 Peripheral/Venous Blood Culture - Final NO GROWTH AFTER 5 DAYS 04/15/21 11:16 Peripheral/Venous Blood Culture - Final NO GROWTH AFTER 5 DAYS Bazan/IV: Voiding Method Incontinent Active Medications - Current Medications Current Medications: Generic Name Dose Route Start Last Admin Trade Name Freq PRN Reason Stop Dose Admin Acetaminophen 650 mg 03/31/21 12:41 04/20/21 22:19 Acetaminophen 325 Mg/10.15 Ml Oral Liqd Unit Dose FEEDTUBE 650 mg Q6H PRN Administration TEMP >/=100.4 Albumin Human 25 gm 11/18/21 08:19 04/01/21 16:23 Albumin Human 25% (25 Gm/100 Ml) Inj IV 25 gm KARLOS PRN Administration Hypotension Albuterol 2.5 mg 03/19/21 00:53 Albuterol 2.5 Mg/3 Ml Nebu IH Q4HRT PRN Shortness Of Breath Albuterol/Ipratropium 1 ampul 03/19/21 08:00 04/21/21 02:10 Ipratropium/Albuterol Sulfate 3 Ml Ampul.Neb IH 1 ampul Q6HRT INESSA Administration Lipase/Protease/Amylase 1 each 04/09/21 17:17 Lipase 10,500/Protease 25,000/Amylase 43,750 (Units) Cap FEEDTUBE PRN PRN For Clogged Feeding Tube Calcium Acetate 1,334 mg 04/03/21 20:00 04/20/21 20:13 Calcium Acetate 667 Mg Cap FEEDTUBE 1,334 mg TID INESSA Administration Dextrose 50 ml 03/14/21 11:02 03/15/21 11:40 Dextrose 50% In Water (25gm) 50 Ml Syringe IV 50 ml Q30MIN PRN Administration Hypoglycemia Protocol Famotidine 10 mg 03/17/21 22:00 04/20/21 22:12 Famotidine 10 Mg Tab PO 10 mg BID INESSA Administration Fentanyl 50 mcg 04/15/21 11:48 04/18/21 18:58 Fentanyl 100 Mcg/2 Ml Inj IV 50 mcg Q10MIN PRN Administration ANALGESIA Hydrocortisone Sodium Succinate 50 mg 04/18/21 10:00 04/20/21 22:13 Hydrocortisone Sod Succ 100 Mg/2 Ml Vial IV 04/21/21 22:01 50 mg Q12H INESSA Administration Hydrocortisone Sodium Succinate 25 mg 04/22/21 10:00 Hydrocortisone Sod Succ 100 Mg/2 Ml Vial IV 04/25/21 09:59 QDAY INESSA Hydrophilic Ointment 1 applic 03/14/21 17:50 04/18/21 19:02 Lip Therapy Vaseline TP 1 applic Q2HR PRN Administration Dry Lips Hydrophilic Ointment 1 applic 04/15/21 13:00 04/20/21 22:12 Aquaphor Ointment TP 1 applic Q12HR INESSA Administration Midazolam HCl 100 mg/ Sodium 100 mls @ 1 mls/hr 03/30/21 15:00 04/21/21 04:35 Chloride IV 7 mg/hr TITR INESSA 7 mls/hr Administration Protocol 1 MG/HR Vasopressin 20 unit/ Sodium 101 mls @ 9.09 mls/hr 03/30/21 20:00 04/18/21 02:04 Chloride IV 0.03 units/min TITR INESSA 9.09 mls/hr Administration 0.03 UNITS/MIN Phenylephrine HCl 100 mg/ 100 mls @ 3 mls/hr 03/31/21 04:00 04/06/21 07:58 Sodium Chloride IV 0 mcg/min TITR INESSA 0 mls/hr Titration Protocol 50 MCG/MIN Propofol 1,000 mg in 100 mls @ 4.26 mls/hr 04/07/21 13:00 04/12/21 12:52 Diprivan 10 Mg/Ml IV 0 mcg/kg/min TITR INESSA 0 mls/hr Titration Protocol 5 MCG/KG/MIN Sodium Chloride 1,000 mls @ 1 mls/hr 04/14/21 16:45 04/14/21 16:57 Nacl 0.9% 1000 Ml IV 1 mls/hr DIRECT INESSA Administration NORepinephrine/NS 8 MG-250 ML 8 mg in 250 mls @ 3.75 mls/hr 04/15/21 12:00 04/19/21 08:20 Norepinephrine/Ns 8 Mg-250 Ml (Double Conc) IV 3 mcg/min TITRATE INESSA 5.625 mls/hr Titration Protocol 2 MCG/MIN Fentanyl Citrate 2,000 mcg in 100 mls @ 7.1 mls/hr 04/15/21 13:00 04/21/21 05:20 Fentanyl Drip Premix IV 4 mcg/kg/hr TITR INESSA 28.4 mls/hr Administration Protocol 1 MCG/KG/HR Sodium Chloride 100 mls @ 999 mls/hr 04/18/21 14:26 Nacl 0.9% IV KARLOS PRN Hypotension Insulin Human Lispro 0 unit 03/14/21 12:00 04/21/21 06:21 Insulin Lispro 100 Unit/Ml SUB-Q Not Given Q6HR INESSA Protocol Lorazepam 1 mg 03/13/21 19:40 04/18/21 18:58 Lorazepam 2 Mg/Ml Vial IV 1 mg Q4H PRN Administration Anxiety Multi-Ingred Cream/Lotion/Oil/Oint 1 applic 03/14/21 17:50 12/03/21 23:02 Mineral Oil/Petrolatum, White Ophth Oint 3.5 Gm OU 1 applic Q4HR PRN Administration Dry Eye(s) Ondansetron HCl 4 mg 03/13/21 19:30 03/21/21 12:05 Ondansetron 4 Mg/2 Ml Inj IV 4 mg Q8H PRN Administration Nausea And Vomiting Quetiapine Fumarate 300 mg 04/06/21 22:00 04/20/21 22:13 Quetiapine 100 Mg Tab PO 300 mg BID INESSA Administration Senna/Docusate Sodium 1 tab 03/14/21 22:00 04/20/21 22:12 Sennosides/Docusate Sodium 8.6/50 Mg Tab FEEDTUBE Not Given BID INESSA Simple Syrup 15 ml 04/09/21 17:17 Simple Syrup 15 Ml FEEDTUBE PRN PRN Hypoglycemia Simple Syrup 30 ml 04/09/21 17:17 Simple Syrup 15 Ml FEEDTUBE PRN PRN Hypoglycemia Sodium Bicarbonate 325 mg 04/09/21 17:17 Sodium Bicarbonate 325 Mg Tab FEEDTUBE PRN PRN For Clogged Feeding Tube Sodium Chloride 10 ml 03/13/21 22:00 04/20/21 22:13 Sodium Chloride 0.9% 10 Ml Flush Syringe IV 10 ml BID INESSA Administration Sodium Chloride 10 ml 03/13/21 19:30 04/17/21 05:34 Sodium Chloride 0.9% 10 Ml Flush Syringe IV 10 ml PRN PRN Administration LINE FLUSH Nutrition/Malnutrition Assess - Dietary Evaluation Nutrition/Malnutrition Findings: Nutrition Notes Start: 03/15/21 11:06 Freq: Status: Active Protocol: Document 04/17/21 13:12 CW (Rec: 04/17/21 13:25 CW [id number]) Nutrition Notes Initial or Follow up Reassessment Current Diagnosis Acute Kidney Injury, Hypertension,Respiratory Failure Other Pertinent Diagnosis pneu, Covid 19 Current Diet TF -Glucerna 1.2 Abdullahi (since L 04/14). Labs/Tests K 5.9 bun 112 k 3.6 BG 174 Pertinent Medications Senna Phoslo Solu cortef Height 5 ft 5 in Weight 142 kg Alicia Body Weight (kg) 56.81 BMI 52.0 Weight change and time frame Drastic weight increase. Likely inaccurate. Recommend reweight. Subjective/Other Information Kitchen reports not out of Nepro. Will replace Nepro order. RN reports taht NGT placement needs to be verified . Recommend restart TF when medically feasible. RN reports unable to conduct reweight d/ t lack of bed scale. Will base TF off of UBW and adjust accordingly. Percent of energy/protein needs met: 0%/0% Burn Absent Trauma Absent GI Symptoms None Food Allergy No Skin Integrity/Comment Intact Current % PO Negligible Minimum of two criteria No physical signs of malnutrition #1 Nutrition Diagnosis Swallowing difficulty Etiology respiratory failure As Evidenced by Signs and Symptoms Pt on mechancial vent Diagnosis Progress(for reassessment Continues documentation) Is patient on ventilator? Yes Is Patient Ambulatory and/or Out of Bed No REE-([facility]-confined to bed) 2570.232 Kcal/Kg value to use for calculation 14 Approximate Energy Requirements Using 1988 kcal/Kg Calculation Used for Recommendations Kcal/kg Additional Notes protein need: up to 142 fluid needs: 1.5 L or per MD order Nutrition Intervention Change Diet Order: Continue TF when medically feasible Nutrition Support: Nepro at 45 with a free water flush of 120 ml q4h Kcal 1,944 Protein (gm) 88 Fluid (mL) 785 Goal #1 TF tolerance Goal #2 Meet at least 75% of EER via TF Follow-Up By: 04/19/21 Additional Comments F/U fo TF restart and [place]
[2021-04-20] MEDS: MIDAZOLAM 100 MG in SODIUM CHLORIDE 0.9% 80 ML IV SCH (11:34)
[2021-04-20] MEDS: AQUAPHOR OINTMENT TP SCH ×2 (11:35→22:12)
[2021-04-20] MEDS: QUEtiapine 100 MG TAB PO SCH ×2 (11:36→22:13)
[2021-04-20] MEDS: FAMOTIDINE 10 MG TAB PO SCH ×2 (11:36→22:12)
[2021-04-20] MEDS: HYDROCORTISONE SOD SUCC 100 MG/2 ML VIAL IV SCH ×2 (11:36→22:13)
[2021-04-20] MEDS: SENNOSIDES/DOCUSATE SODIUM 8.6/50 MG TAB FEEDTUBE SCH ×2 (11:36→22:12)
--- NOTE | 2021-04-20 13:40 | Progress Note ---
Assessment and Plan Acute hypoxemic respiratory failure Acute asthma exacerbation Morbid obesity Crohn's disease Metabolic acidosis Acute kidney injury Coronavirus infection Pneumonia (CAP) Oropharyngeal dysphagia Obesity, if not mentioned above - keep peep at 8 cm H2O - hyperkalemia correction with dialysis - hold on weaning stress steroids further till post-op - repeat ABG in am - continue care as below otherwise; - HD/UF per nephrology prescription for toxin and volume clearance - wean vasopressors for target MAP > 65 mmHg - nephrology input appreciated; HD/UF for toxin and volume clearance - continue Daily SAT and SBT assessment as tolerated - continue to wean supplemental oxygen for target O2 sat's > 90% acutely - VAP bundle addressed - continue lung protective strategies - continue bronchodilators with pulmonary hygiene per RT - wean per pulmonary driven protocols otherwise - continue accuchecks with glycemic control per SSI (While critically ill target blood glucose of 140-180 mg/dL; avoid hypoglycemia) - sedation prn for target RASS 0 to -1 - avoid nephrotoxins, renally dose all medications - continue to avoid benzodiazepine's, reduce the possibility of delirium - de-escalate AB's per ID rec's - prn analgesia per CPOT score - Maintenance of sleep-wake cycle, avoid delirium - continue enteral nutritional support at goal rate as tolerated - G.I. & VTE prophylaxis - PT/OT/ROM exercises - continue mobility protocols for pressure ulcer prophylaxis - Monitor hemodynamics closely - continue other care per attending / other consultants - discharge planning ongoing concurrently COVID SPECIFIC INTERVENTIONS - Isolation discontinued - s/p Actemra - Remdesivir as per ID/Pulmonary developed protocols (not a candidate) - continue systemic steroids for severe COVID-19 infection empirically - repeat COVID tests result negative - zinc and vitamin C supplementation - Monitor inflammatory markers per facility protocol - ferritin, Ddimer, CRP - therapeutic anticoagulation per system Protocol based on d-dimer and clinical considerations (VTE prophylaxis) - Continue contact and airborne isolation .... Re-evaluate in am & prn CONDITION: CRITICAL PROGNOSIS: GUARDED CODE STATUS: FULL CODE The high probability of a clinically significant, sudden or life-threatening deterioration of the [respiratory, cardiovascular, renal & neurologic] system(s) required my full and direct attention, intervention and personal management. The aggregate critical care time was [34] minutes without overlap. Time includes spent on; [x] Data Review and interpretation [x] Patient assessment and monitoring of vital signs [x] Documentation [x] Medication orders and management Subjective Date of service: 04/20/21 Principal diagnosis: Ac hypoxemic resp failure; AE-Asthma; SAI; Crohn's; COVID- 19; Pneumonia Interval history: Patient is seen today for: Acute hypoxemic respiratory failure; AE-Asthma; SAI; Crohn's disease; COVID-19 infection; Pneumonia (CAP) Seen and examined at bedside; 24hour events reviewed; nursing and respiratory care staff consulted; no adverse overnight events reported to me; resting in bed; remains on MVS; continues to do better hemodynamically, on Dialysis now and not requiring vasopressors today; shooting for 2.5kg UF; tolerating 40% FiO2 with peep at 8; trach & PEG rescheduled to allow HD/UF prior re: bleeding issues also Objective Vital Signs - 12hr 04/20/21 04/20/21 04/20/21 01:46 01:53 02:00 Temperature Pulse Rate 102 H 106 H Pulse Rate [ 10 L Anterior Bilateral Throughout] Pulse Rate [ From Monitor] Respiratory 9 L 27 H Rate Respiratory 30 H Rate [Anterior Bilateral Throughout] Blood Pressure O2 Sat by Pulse 100 100 Oximetry 04/20/21 04/20/21 04/20/21 02:16 02:30 02:45 Temperature Pulse Rate 101 H 95 H 94 H Pulse Rate [ Anterior Bilateral Throughout] Pulse Rate [ From Monitor] Respiratory 30 H 30 H 30 H Rate Respiratory Rate [Anterior Bilateral Throughout] Blood Pressure O2 Sat by Pulse 100 100 100 Oximetry 04/20/21 04/20/21 04/20/21 03:00 03:16 03:30 Temperature Pulse Rate 97 H 98 H Pulse Rate [ Anterior Bilateral Throughout] Pulse Rate [ From Monitor] Respiratory 30 H 30 H Rate Respiratory Rate [Anterior Bilateral Throughout] Blood Pressure O2 Sat by Pulse 100 100 100 Oximetry 04/20/21 04/20/21 04/20/21 03:46 03:58 04:00 Temperature 99.1 F Pulse Rate 113 H 114 H Pulse Rate [ Anterior Bilateral Throughout] Pulse Rate [ 135 H From Monitor] Respiratory 16 20 Rate Respiratory Rate [Anterior Bilateral Throughout] Blood Pressure O2 Sat by Pulse 100 100 Oximetry 04/20/21 04/20/21 04/20/21 04:16 04:30 04:46 Temperature Pulse Rate 109 H 104 H 97 H Pulse Rate [ Anterior Bilateral Throughout] Pulse Rate [ From Monitor] Respiratory 10 L 0 L 0 L Rate Respiratory Rate [Anterior Bilateral Throughout] Blood Pressure O2 Sat by Pulse 100 100 100 Oximetry 04/20/21 04/20/21 04/20/21 04:55 05:00 05:16 Temperature Pulse Rate 99 H 116 H 110 H Pulse Rate [ Anterior Bilateral Throughout] Pulse Rate [ From Monitor] Respiratory 13 8 L Rate Respiratory Rate [Anterior Bilateral Throughout] Blood Pressure 93/45 O2 Sat by Pulse 100 98 99 Oximetry 04/20/21 04/20/21 04/20/21 05:30 05:46 06:00 Temperature Pulse Rate 105 H 105 H 99 H Pulse Rate [ Anterior Bilateral Throughout] Pulse Rate [ From Monitor] Respiratory 15 9 L 30 H Rate Respiratory Rate [Anterior Bilateral Throughout] Blood Pressure O2 Sat by Pulse 100 98 99 Oximetry 04/20/21 04/20/21 04/20/21 06:16 06:30 06:46 Temperature Pulse Rate 96 H 96 H 98 H Pulse Rate [ Anterior Bilateral Throughout] Pulse Rate [ From Monitor] Respiratory 30 H 26 H 28 H Rate Respiratory Rate [Anterior Bilateral Throughout] Blood Pressure O2 Sat by Pulse 100 100 98 Oximetry 04/20/21 04/20/21 04/20/21 07:00 07:16 07:30 Temperature Pulse Rate 95 H 101 H 104 H Pulse Rate [ Anterior Bilateral Throughout] Pulse Rate [ From Monitor] Respiratory 18 21 11 L Rate Respiratory Rate [Anterior Bilateral Throughout] Blood Pressure O2 Sat by Pulse 100 100 100 Oximetry 04/20/21 04/20/21 04/20/21 07:46 08:00 08:16 Temperature 97.9 F Pulse Rate 103 H 93 H 101 H Pulse Rate [ Anterior Bilateral Throughout] Pulse Rate [ 135 H From Monitor] Respiratory 11 L 27 H 21 Rate Respiratory Rate [Anterior Bilateral Throughout] Blood Pressure O2 Sat by Pulse 100 100 100 Oximetry 04/20/21 04/20/21 04/20/21 08:30 08:35 08:46 Temperature Pulse Rate 100 H 101 H Pulse Rate [ 100 H Anterior Bilateral Throughout] Pulse Rate [ From Monitor] Respiratory 20 22 Rate Respiratory 30 H Rate [Anterior Bilateral Throughout] Blood Pressure 129/67 O2 Sat by Pulse 100 100 Oximetry 04/20/21 04/20/21 04/20/21 09:00 09:16 09:30 Temperature Pulse Rate 103 H 93 H 103 H Pulse Rate [ Anterior Bilateral Throughout] Pulse Rate [ From Monitor] Respiratory 17 30 H 24 Rate Respiratory Rate [Anterior Bilateral Throughout] Blood Pressure O2 Sat by Pulse 100 100 97 Oximetry 04/20/21 04/20/21 04/20/21 09:46 09:59 10:00 Temperature 97.9 F Pulse Rate 95 H 94 H Pulse Rate [ Anterior Bilateral Throughout] Pulse Rate [ From Monitor] Respiratory 18 25 H Rate Respiratory Rate [Anterior Bilateral Throughout] Blood Pressure O2 Sat by Pulse 100 100 Oximetry 04/20/21 04/20/21 04/20/21 10:16 10:30 10:46 Temperature Pulse Rate 93 H 97 H 96 H Pulse Rate [ Anterior Bilateral Throughout] Pulse Rate [ From Monitor] Respiratory 15 11 L 13 Rate Respiratory Rate [Anterior Bilateral Throughout] Blood Pressure O2 Sat by Pulse 100 100 99 Oximetry 04/20/21 04/20/21 11:00 12:19 Temperature Pulse Rate 99 H 99 H Pulse Rate [ Anterior Bilateral Throughout] Pulse Rate [ From Monitor] Respiratory 14 Rate Respiratory Rate [Anterior Bilateral Throughout] Blood Pressure 115/51 O2 Sat by Pulse 100 100 Oximetry Constitutional: no acute distress, other (morbidly obese female with mild ventilator dyssynchrony) Eyes: non-icteric, other (scleral erythema improved) ENT: oropharynx moist, oropharyngeal exudate pre (less bloody), other (ETT 25 cm BALJINDER) Neck: supple, no lymphadenopathy, no JVD, other (large circumference) Effort: mildly labored Ascultation: Bilateral: diminished breath sounds, rhonchi Percussion: Bilateral: not dull Cardiovascular: regular rate and rhythm Gastrointestinal: normoactive bowel sounds, soft, non-tender, non-distended (protuberant) Integumentary: rash (now scaling / drying), other Extremities: no cyanosis, pulses normal, no ischemia or petechiae, edema (1+) Neurologic: pupils equal and round, CN II-XII normal, other (unasble to assess re: AMS) Psychiatric: other (unasble to assess) CBC and BMP: 04/21/21 04:00 04/21/21 04:00 ABG, PT/INR, D-dimer: ABG ABG pH 7.301 (7.320-7.450) L 04/19/21 03:09 POC ABG pCO2 48.7 mmHg (32.0-48.0) H 04/19/21 03:09 ABG pCO2 68.6 mm Hg 04/13/21 03:52 POC ABG pO2 82.1 mmHg (83-108) L 04/19/21 03:09 ABG pO2 98.9 mm Hg (80.0-90.0) H 04/13/21 03:52 POC ABG HCO3 23.5 04/19/21 03:09 ABG O2 Saturation 94.9 (0-100) 04/19/21 03:09 PT/INR, D-dimer PT 16.1 Sec. (12.2-14.9) H 04/20/21 04:30 INR 1.17 (0.87-1.13) H 04/20/21 04:30 D-Dimer 2696.79 ng/mlDDU (0-234) H 04/08/21 04:40 Abnormal lab findings: Abnormal Labs 03/13/21 03/13/21 03/13/21 13:26 13:26 15:40 WBC RBC Hgb Hct MCH 27 L MCHC RDW 17.0 H Plt Count Lymph % (Auto) [place] # (Auto) Eos # (Auto) Seg Neutrophils % Lymphocytes % (Manual) Eosinophils % (Manual) Basophils % (Manual) Nucleated RBC % Seg Neutrophils # Seg Neutrophils # Man Lymphocytes # (Manual) Monocytes # (Manual) Eosinophils # (Manual) Basophils # (Manual) Percent Retic PT INR Fibrinogen D-Dimer ABG pH POC ABG pCO2 POC ABG pO2 ABG pO2 ABG HCO3 ABG O2 Saturation ABG Base Excess ABG Hemoglobin ABG Oxyhemoglobin ABG Sodium ABG Potassium ABG Chloride ABG Glucose Oxyhemoglobin Carboxyhemoglobin Sodium 136 L Potassium Chloride Carbon Dioxide BUN Creatinine Glucose 125 H 130 H POC Glucose Hemoglobin A1c Calcium Phosphorus Magnesium AST ALT Alkaline Phosphatase Lactate Dehydrogenase 235 H C-Reactive Protein 4.30 H Total Protein Albumin Triglycerides Arterial Blood Glucose Arterial Blood Ionized Calcium Urine WBC (Auto) U Epithel Cells (Auto) Urine Creatinine Random Vancomycin Heparin-induced Plt Ab Coronavirus (PCR) Crossmatch 03/13/21 03/14/21 03/14/21 21:33 03:35 06:21 WBC 20.0 H RBC Hgb Hct MCH 27 L MCHC RDW 17.5 H Plt Count Lymph % (Auto) 7.8 L [place] # (Auto) 1.3 H Eos # (Auto) Seg Neutrophils % 85.4 H Lymphocytes % (Manual) Eosinophils % (Manual) Basophils % (Manual) Nucleated RBC % Seg Neutrophils # 17.1 H Seg Neutrophils # Man Lymphocytes # (Manual) Monocytes # (Manual) Eosinophils # (Manual) Basophils # (Manual) Percent Retic PT INR Fibrinogen D-Dimer ABG pH 7.323 L 7.234 L POC ABG pCO2 POC ABG pO2 ABG pO2 69.8 L ABG HCO3 ABG O2 Saturation 92.9 L 94.9 L ABG Base Excess -3.3 L -5.4 L ABG Hemoglobin ABG Oxyhemoglobin ABG Sodium ABG Potassium ABG Chloride ABG Glucose Oxyhemoglobin 91.2 L 93.2 L Carboxyhemoglobin Sodium Potassium Chloride Carbon Dioxide BUN Creatinine Glucose POC Glucose Hemoglobin A1c Calcium Phosphorus Magnesium AST ALT Alkaline Phosphatase Lactate Dehydrogenase C-Reactive Protein Total Protein Albumin Triglycerides Arterial Blood Glucose Arterial Blood Ionized Calcium Urine WBC (Auto) U Epithel Cells (Auto) Urine Creatinine Random Vancomycin Heparin-induced Plt Ab Coronavirus (PCR) Crossmatch 03/14/21 03/14/21 03/14/21 06:21 07:47 11:21 WBC RBC Hgb Hct MCH MCHC RDW Plt Count Lymph % (Auto) [place] # (Auto) Eos # (Auto) Seg Neutrophils % Lymphocytes % (Manual) Eosinophils % (Manual) Basophils % (Manual) Nucleated RBC % Seg Neutrophils # Seg Neutrophils # Man Lymphocytes # (Manual) Monocytes # (Manual) Eosinophils # (Manual) Basophils # (Manual) Percent Retic PT INR Fibrinogen D-Dimer ABG pH POC ABG pCO2 POC ABG pO2 ABG pO2 ABG HCO3 ABG O2 Saturation ABG Base Excess ABG Hemoglobin ABG Oxyhemoglobin ABG Sodium ABG Potassium ABG Chloride ABG Glucose Oxyhemoglobin Carboxyhemoglobin Sodium 136 L 136 L Potassium 6.2 H* D 5.4 H Chloride Carbon Dioxide 21 L 21 L BUN Creatinine 1.5 H D 1.8 H Glucose 144 H 141 H POC Glucose 147 H Hemoglobin A1c Calcium Phosphorus Magnesium AST ALT Alkaline Phosphatase Lactate Dehydrogenase C-Reactive Protein Total Protein 8.7 H 9.2 H Albumin 3.8 L Triglycerides Arterial Blood Glucose Arterial Blood Ionized Calcium Urine WBC (Auto) U Epithel Cells (Auto) Urine Creatinine Random Vancomycin Heparin-induced Plt Ab Coronavirus (PCR) Crossmatch 1003/14/21 03/14/21 17:29 17:50 18:35 WBC RBC Hgb Hct MCH MCHC RDW Plt Count Lymph % (Auto) [place] # (Auto) Eos # (Auto) Seg Neutrophils % Lymphocytes % (Manual) Eosinophils % (Manual) Basophils % (Manual) Nucleated RBC % Seg Neutrophils # Seg Neutrophils # Man Lymphocytes # (Manual) Monocytes # (Manual) Eosinophils # (Manual) Basophils # (Manual) Percent Retic PT INR Fibrinogen D-Dimer ABG pH POC ABG pCO2 POC ABG pO2 ABG pO2 ABG HCO3 ABG O2 Saturation ABG Base Excess ABG Hemoglobin ABG Oxyhemoglobin ABG Sodium ABG Potassium ABG Chloride ABG Glucose Oxyhemoglobin Carboxyhemoglobin Sodium 135 L Potassium 6.4 H* Chloride Carbon Dioxide 15 L BUN 26 H Creatinine 3.4 H D Glucose 165 H POC Glucose 209 H Hemoglobin A1c Calcium Phosphorus Magnesium AST ALT Alkaline Phosphatase Lactate Dehydrogenase C-Reactive Protein Total Protein Albumin Triglycerides Arterial Blood Glucose Arterial Blood Ionized Calcium Urine WBC (Auto) U Epithel Cells (Auto) Urine Creatinine 40.1 H Random Vancomycin Heparin-induced Plt Ab Coronavirus (PCR) Crossmatch 03/14/21 03/14/21 03/14/21 18:46 22:23 23:52 WBC RBC Hgb Hct MCH MCHC RDW Plt Count Lymph % (Auto) [place] # (Auto) Eos # (Auto) Seg Neutrophils % Lymphocytes % (Manual) Eosinophils % (Manual) Basophils % (Manual) Nucleated RBC % Seg Neutrophils # Seg Neutrophils # Man Lymphocytes # (Manual) Monocytes # (Manual) Eosinophils # (Manual) Basophils # (Manual) Percent Retic PT INR Fibrinogen D-Dimer ABG pH 7.270 L POC ABG pCO2 POC ABG pO2 63.4 L ABG pO2 ABG HCO3 ABG O2 Saturation ABG Base Excess ABG Hemoglobin ABG Oxyhemoglobin 90.2 L ABG Sodium 134.9 L ABG Potassium 5.3 H ABG Chloride ABG Glucose 134 H Oxyhemoglobin Carboxyhemoglobin Sodium 136 L Potassium 5.2 H Chloride Carbon Dioxide 20 L BUN 29 H Creatinine 3.6 H Glucose 236 H POC Glucose 128 H Hemoglobin A1c Calcium Phosphorus Magnesium AST ALT Alkaline Phosphatase Lactate Dehydrogenase C-Reactive Protein Total Protein Albumin 3.2 L Triglycerides Arterial Blood Glucose 134 H Arterial Blood Ionized Calcium Urine WBC (Auto) U Epithel Cells (Auto) Urine Creatinine Random Vancomycin Heparin-induced Plt Ab Coronavirus (PCR) Crossmatch 03/14/21 03/15/21 03/15/21 Unknown 05:00 05:09 WBC 22.5 H RBC Hgb Hct MCH 27 L MCHC RDW 17.6 H Plt Count Lymph % (Auto) [place] # (Auto) Eos # (Auto) Seg Neutrophils % Lymphocytes % (Manual) Eosinophils % (Manual) Basophils % (Manual) Nucleated RBC % Seg Neutrophils # Seg Neutrophils # Man Lymphocytes # (Manual) Monocytes # (Manual) Eosinophils # (Manual) Basophils # (Manual) Percent Retic PT INR Fibrinogen D-Dimer ABG pH POC ABG pCO2 POC ABG pO2 ABG pO2 ABG HCO3 ABG O2 Saturation ABG Base Excess ABG Hemoglobin ABG Oxyhemoglobin ABG Sodium ABG Potassium ABG Chloride ABG Glucose Oxyhemoglobin Carboxyhemoglobin Sodium Potassium Chloride Carbon Dioxide BUN Creatinine Glucose POC Glucose 116 H Hemoglobin A1c Calcium Phosphorus Magnesium AST ALT Alkaline Phosphatase Lactate Dehydrogenase C-Reactive Protein Total Protein Albumin Triglycerides Arterial Blood Glucose Arterial Blood Ionized Calcium Urine WBC (Auto) U Epithel Cells (Auto) Urine Creatinine Random Vancomycin Heparin-induced Plt Ab Coronavirus (PCR) Positive A Crossmatch 03/15/21 03/15/21 03/15/21 05:09 05:09 05:09 WBC RBC Hgb Hct MCH MCHC RDW Plt Count Lymph % (Auto) [place] # (Auto) Eos # (Auto) Seg Neutrophils % Lymphocytes % (Manual) Eosinophils % (Manual) Basophils % (Manual) Nucleated RBC % Seg Neutrophils # Seg Neutrophils # Man Lymphocytes # (Manual) Monocytes # (Manual) Eosinophils # (Manual) Basophils # (Manual) Percent Retic PT INR Fibrinogen D-Dimer ABG pH POC ABG pCO2 POC ABG pO2 ABG pO2 ABG HCO3 ABG O2 Saturation ABG Base Excess ABG Hemoglobin ABG Oxyhemoglobin ABG Sodium ABG Potassium ABG Chloride ABG Glucose Oxyhemoglobin Carboxyhemoglobin Sodium 136 L Potassium 6.5 H* D Chloride Carbon Dioxide 17 L BUN 41 H Creatinine 5.3 H Glucose 128 H POC Glucose Hemoglobin A1c 6.3 H Calcium Phosphorus Magnesium AST ALT Alkaline Phosphatase Lactate Dehydrogenase C-Reactive Protein 12.10 H Total Protein Albumin 3.1 L Triglycerides Arterial Blood Glucose Arterial Blood Ionized Calcium Urine WBC (Auto) U Epithel Cells (Auto) Urine Creatinine Random Vancomycin Heparin-induced Plt Ab Coronavirus (PCR) Crossmatch 03/15/21 03/15/21 03/15/21 10:00 21:50 23:39 WBC RBC Hgb Hct MCH MCHC RDW Plt Count Lymph % (Auto) [place] # (Auto) Eos # (Auto) Seg Neutrophils % Lymphocytes % (Manual) Eosinophils % (Manual) Basophils % (Manual) Nucleated RBC % Seg Neutrophils # Seg Neutrophils # Man Lymphocytes # (Manual) Monocytes # (Manual) Eosinophils # (Manual) Basophils # (Manual) Percent Retic PT INR Fibrinogen D-Dimer ABG pH 7.098 L POC ABG pCO2 72.7 H POC ABG pO2 ABG pO2 162.5 H ABG HCO3 ABG O2 Saturation ABG Base Excess ABG Hemoglobin 10.1 L ABG Oxyhemoglobin ABG Sodium ABG Potassium 5.7 H ABG Chloride ABG Glucose Oxyhemoglobin Carboxyhemoglobin 0.4 L Sodium Potassium Chloride Carbon Dioxide BUN Creatinine Glucose POC Glucose 156 H Hemoglobin A1c Calcium Phosphorus Magnesium AST ALT Alkaline Phosphatase Lactate Dehydrogenase C-Reactive Protein Total Protein Albumin Triglycerides Arterial Blood Glucose Arterial Blood Ionized Calcium Urine WBC (Auto) U Epithel Cells (Auto) Urine Creatinine Random Vancomycin Heparin-induced Plt Ab Coronavirus (PCR) Crossmatch 03/16/21 03/16/21 03/16/21 05:00 05:30 05:30 WBC 16.7 H RBC 3.59 L Hgb 9.6 L Hct 30.1 L MCH 27 L MCHC RDW 17.5 H Plt Count Lymph % (Auto) [place] # (Auto) Eos # (Auto) Seg Neutrophils % Lymphocytes % (Manual) Eosinophils % (Manual) Basophils % (Manual) Nucleated RBC % Seg Neutrophils # Seg Neutrophils # Man Lymphocytes # (Manual) Monocytes # (Manual) Eosinophils # (Manual) Basophils # (Manual) Percent Retic PT INR Fibrinogen D-Dimer ABG pH POC ABG pCO2 POC ABG pO2 ABG pO2 ABG HCO3 ABG O2 Saturation ABG Base Excess ABG Hemoglobin ABG Oxyhemoglobin ABG Sodium ABG Potassium ABG Chloride ABG Glucose Oxyhemoglobin Carboxyhemoglobin Sodium Potassium Chloride Carbon Dioxide BUN 46 H Creatinine 6.2 H Glucose 131 H POC Glucose Hemoglobin A1c Calcium Phosphorus 6.00 H D Magnesium AST ALT Alkaline Phosphatase Lactate Dehydrogenase 318 H C-Reactive Protein 18.60 H Total Protein Albumin 3.0 L Triglycerides Arterial Blood Glucose Arterial Blood Ionized Calcium Urine WBC (Auto) U Epithel Cells (Auto) Urine Creatinine Random Vancomycin Heparin-induced Plt Ab Coronavirus (PCR) Crossmatch 03/16/21 03/16/21 03/16/21 05:51 06:37 08:58 WBC RBC Hgb Hct MCH MCHC RDW Plt Count Lymph % (Auto) [place] # (Auto) Eos # (Auto) Seg Neutrophils % Lymphocytes % (Manual) Eosinophils % (Manual) Basophils % (Manual) Nucleated RBC % Seg Neutrophils # Seg Neutrophils # Man Lymphocytes # (Manual) Monocytes # (Manual) Eosinophils # (Manual) Basophils # (Manual) Percent Retic PT INR Fibrinogen D-Dimer 3041.12 H ABG pH POC ABG pCO2 POC ABG pO2 ABG pO2 141.5 H ABG HCO3 ABG O2 Saturation ABG Base Excess ABG Hemoglobin 9.7 L ABG Oxyhemoglobin ABG Sodium ABG Potassium ABG Chloride ABG Glucose Oxyhemoglobin Carboxyhemoglobin Sodium Potassium Chloride Carbon Dioxide BUN Creatinine Glucose POC Glucose 126 H Hemoglobin A1c Calcium Phosphorus Magnesium AST ALT Alkaline Phosphatase Lactate Dehydrogenase C-Reactive Protein Total Protein Albumin Triglycerides Arterial Blood Glucose Arterial Blood Ionized Calcium Urine WBC (Auto) U Epithel Cells (Auto) Urine Creatinine Random Vancomycin Heparin-induced Plt Ab Coronavirus (PCR) Crossmatch 03/16/21 03/16/21 03/16/21 12:11 16:51 21:00 WBC RBC Hgb Hct MCH MCHC RDW Plt Count Lymph % (Auto) [place] # (Auto) Eos # (Auto) Seg Neutrophils % Lymphocytes % (Manual) Eosinophils % (Manual) Basophils % (Manual) Nucleated RBC % Seg Neutrophils # Seg Neutrophils # Man Lymphocytes # (Manual) Monocytes # (Manual) Eosinophils # (Manual) Basophils # (Manual) Percent Retic PT INR Fibrinogen D-Dimer ABG pH 7.239 L POC ABG pCO2 61.5 H POC ABG pO2 80.8 L ABG pO2 ABG HCO3 ABG O2 Saturation ABG Base Excess ABG Hemoglobin 11.4 L ABG Oxyhemoglobin 93.5 L ABG Sodium ABG Potassium 5.4 H ABG Chloride ABG Glucose 137 H Oxyhemoglobin Carboxyhemoglobin 0.2 L Sodium Potassium Chloride Carbon Dioxide BUN Creatinine Glucose POC Glucose 156 H 133 H Hemoglobin A1c Calcium Phosphorus Magnesium AST ALT Alkaline Phosphatase Lactate Dehydrogenase C-Reactive Protein Total Protein Albumin Triglycerides Arterial Blood Glucose 137 H Arterial Blood Ionized Calcium Urine WBC (Auto) U Epithel Cells (Auto) Urine Creatinine Random Vancomycin Heparin-induced Plt Ab Coronavirus (PCR) Crossmatch 03/16/21 03/17/21 03/17/21 23:42 05:23 05:23 WBC 18.4 H RBC Hgb Hct MCH 27 L MCHC RDW 17.4 H Plt Count Lymph % (Auto) [place] # (Auto) Eos # (Auto) Seg Neutrophils % Lymphocytes % (Manual) Eosinophils % (Manual) Basophils % (Manual) Nucleated RBC % Seg Neutrophils # Seg Neutrophils # Man Lymphocytes # (Manual) Monocytes # (Manual) Eosinophils # (Manual) Basophils # (Manual) Percent Retic PT INR Fibrinogen D-Dimer ABG pH POC ABG pCO2 POC ABG pO2 ABG pO2 ABG HCO3 ABG O2 Saturation ABG Base Excess ABG Hemoglobin ABG Oxyhemoglobin ABG Sodium ABG Potassium ABG Chloride ABG Glucose Oxyhemoglobin Carboxyhemoglobin Sodium Potassium 5.2 H Chloride Carbon Dioxide 21 L BUN 79 H Creatinine 8.6 H Glucose 124 H POC Glucose 133 H Hemoglobin A1c Calcium Phosphorus Magnesium AST ALT Alkaline Phosphatase Lactate Dehydrogenase C-Reactive Protein Total Protein Albumin 3.2 L Triglycerides 285 H Arterial Blood Glucose Arterial Blood Ionized Calcium Urine WBC (Auto) U Epithel Cells (Auto) Urine Creatinine Random Vancomycin Heparin-induced Plt Ab Coronavirus (PCR) Crossmatch 03/17/21 03/17/21 03/17/21 05:23 10:48 12:20 WBC RBC Hgb Hct MCH MCHC RDW Plt Count Lymph % (Auto) [place] # (Auto) Eos # (Auto) Seg Neutrophils % Lymphocytes % (Manual) Eosinophils % (Manual) Basophils % (Manual) Nucleated RBC % Seg Neutrophils # Seg Neutrophils # Man Lymphocytes # (Manual) Monocytes # (Manual) Eosinophils # (Manual) Basophils # (Manual) Percent Retic PT INR Fibrinogen D-Dimer ABG pH 7.294 L POC ABG pCO2 POC ABG pO2 ABG pO2 90.3 H ABG HCO3 ABG O2 Saturation ABG Base Excess ABG Hemoglobin 9.9 L ABG Oxyhemoglobin ABG Sodium ABG Potassium ABG Chloride ABG Glucose Oxyhemoglobin Carboxyhemoglobin Sodium Potassium 5.2 H Chloride Carbon Dioxide 21 L BUN 79 H Creatinine 8.4 H Glucose 125 H POC Glucose 171 H Hemoglobin A1c Calcium Phosphorus 9.90 H D Magnesium 2.40 H AST ALT Alkaline Phosphatase Lactate Dehydrogenase C-Reactive Protein Total Protein Albumin Triglycerides Arterial Blood Glucose Arterial Blood Ionized Calcium Urine WBC (Auto) U Epithel Cells (Auto) Urine Creatinine Random Vancomycin Heparin-induced Plt Ab Coronavirus (PCR) Crossmatch 03/17/21 03/17/21 03/18/21 17:24 21:00 04:30 WBC RBC Hgb Hct MCH MCHC RDW Plt Count Lymph % (Auto) [place] # (Auto) Eos # (Auto) Seg Neutrophils % Lymphocytes % (Manual) Eosinophils % (Manual) Basophils % (Manual) Nucleated RBC % Seg Neutrophils # Seg Neutrophils # Man Lymphocytes # (Manual) Monocytes # (Manual) Eosinophils # (Manual) Basophils # (Manual) Percent Retic PT INR Fibrinogen D-Dimer 9953.09 H ABG pH 7.310 L POC ABG pCO2 54.5 H POC ABG pO2 62.3 L ABG pO2 ABG HCO3 ABG O2 Saturation ABG Base Excess ABG Hemoglobin 10.2 L ABG Oxyhemoglobin 88.6 L ABG Sodium ABG Potassium 4.7 H ABG Chloride ABG Glucose 99 H Oxyhemoglobin Carboxyhemoglobin 0.3 L Sodium Potassium Chloride Carbon Dioxide BUN Creatinine Glucose POC Glucose 121 H Hemoglobin A1c Calcium Phosphorus Magnesium AST ALT Alkaline Phosphatase Lactate Dehydrogenase C-Reactive Protein Total Protein Albumin Triglycerides Arterial Blood Glucose 99 H Arterial Blood Ionized Calcium 4.3 L Urine WBC (Auto) U Epithel Cells (Auto) Urine Creatinine Random Vancomycin Heparin-induced Plt Ab Coronavirus (PCR) Crossmatch 03/18/21 03/18/21 03/18/21 04:30 04:30 11:34 WBC 12.8 H RBC 3.49 L Hgb 9.4 L Hct 29.3 L MCH 27 L MCHC RDW 17.4 H Plt Count Lymph % (Auto) [place] # (Auto) Eos # (Auto) Seg Neutrophils % Lymphocytes % (Manual) Eosinophils % (Manual) Basophils % (Manual) Nucleated RBC % Seg Neutrophils # Seg Neutrophils # Man Lymphocytes # (Manual) Monocytes # (Manual) Eosinophils # (Manual) Basophils # (Manual) Percent Retic PT INR Fibrinogen D-Dimer ABG pH POC ABG pCO2 POC ABG pO2 ABG pO2 ABG HCO3 ABG O2 Saturation ABG Base Excess ABG Hemoglobin ABG Oxyhemoglobin ABG Sodium ABG Potassium ABG Chloride ABG Glucose Oxyhemoglobin Carboxyhemoglobin Sodium Potassium Chloride Carbon Dioxide BUN 69 H Creatinine 7.3 H Glucose POC Glucose 114 H Hemoglobin A1c Calcium 8.2 L Phosphorus 7.60 H D Magnesium AST ALT Alkaline Phosphatase Lactate Dehydrogenase 477 H C-Reactive Protein 6.90 H Total Protein Albumin Triglycerides Arterial Blood Glucose Arterial Blood Ionized Calcium Urine WBC (Auto) U Epithel Cells (Auto) Urine Creatinine Random Vancomycin Heparin-induced Plt Ab Coronavirus (PCR) Crossmatch 03/18/21 03/19/21 03/19/21 21:44 04:13 04:13 WBC 13.7 H RBC 3.32 L Hgb 9.0 L Hct 28.1 L MCH 27 L MCHC RDW 16.9 H Plt Count Lymph % (Auto) [place] # (Auto) Eos # (Auto) Seg Neutrophils % Lymphocytes % (Manual) Eosinophils % (Manual) Basophils % (Manual) Nucleated RBC % Seg Neutrophils # Seg Neutrophils # Man Lymphocytes # (Manual) Monocytes # (Manual) Eosinophils # (Manual) Basophils # (Manual) Percent Retic PT INR Fibrinogen D-Dimer ABG pH 7.290 L POC ABG pCO2 POC ABG pO2 ABG pO2 119.7 H ABG HCO3 28.0 H ABG O2 Saturation ABG Base Excess ABG Hemoglobin 9.6 L ABG Oxyhemoglobin ABG Sodium ABG Potassium ABG Chloride ABG Glucose Oxyhemoglobin Carboxyhemoglobin Sodium Potassium Chloride Carbon Dioxide BUN Creatinine Glucose POC Glucose Hemoglobin A1c Calcium Phosphorus Magnesium AST ALT Alkaline Phosphatase Lactate Dehydrogenase C-Reactive Protein Total Protein Albumin Triglycerides Arterial Blood Glucose Arterial Blood Ionized Calcium Urine WBC (Auto) U Epithel Cells (Auto) Urine Creatinine Random Vancomycin 43.5 H Heparin-induced Plt Ab Coronavirus (PCR) Crossmatch 03/19/21 03/19/21 03/19/21 04:13 05:59 11:40 WBC RBC Hgb Hct MCH MCHC RDW Plt Count Lymph % (Auto) [place] # (Auto) Eos # (Auto) Seg Neutrophils % Lymphocytes % (Manual) Eosinophils % (Manual) Basophils % (Manual) Nucleated RBC % Seg Neutrophils # Seg Neutrophils # Man Lymphocytes # (Manual) Monocytes # (Manual) Eosinophils # (Manual) Basophils # (Manual) Percent Retic PT INR Fibrinogen D-Dimer ABG pH POC ABG pCO2 POC ABG pO2 ABG pO2 ABG HCO3 ABG O2 Saturation ABG Base Excess ABG Hemoglobin ABG Oxyhemoglobin ABG Sodium ABG Potassium ABG Chloride ABG Glucose Oxyhemoglobin Carboxyhemoglobin Sodium Potassium Chloride Carbon Dioxide BUN 55 H Creatinine 7.0 H Glucose POC Glucose 116 H 145 H Hemoglobin A1c Calcium 8.1 L Phosphorus 7.90 H Magnesium AST ALT Alkaline Phosphatase Lactate Dehydrogenase C-Reactive Protein Total Protein Albumin Triglycerides Arterial Blood Glucose Arterial Blood Ionized Calcium Urine WBC (Auto) U Epithel Cells (Auto) Urine Creatinine Random Vancomycin Heparin-induced Plt Ab Coronavirus (PCR) Crossmatch 03/19/21 03/19/21 03/20/21 17:01 23:41 04:00 WBC 15.6 H RBC 3.55 L Hgb 9.6 L Hct MCH 27 L MCHC RDW 16.8 H Plt Count 139 L Lymph % (Auto) [place] # (Auto) Eos # (Auto) Seg Neutrophils % Lymphocytes % (Manual) Eosinophils % (Manual) Basophils % (Manual) Nucleated RBC % Seg Neutrophils # Seg Neutrophils # Man Lymphocytes # (Manual) Monocytes # (Manual) Eosinophils # (Manual) Basophils # (Manual) Percent Retic PT INR Fibrinogen D-Dimer ABG pH POC ABG pCO2 POC ABG pO2 ABG pO2 ABG HCO3 ABG O2 Saturation ABG Base Excess ABG Hemoglobin ABG Oxyhemoglobin ABG Sodium ABG Potassium ABG Chloride ABG Glucose Oxyhemoglobin Carboxyhemoglobin Sodium Potassium Chloride Carbon Dioxide BUN Creatinine Glucose POC Glucose 111 H 118 H Hemoglobin A1c Calcium Phosphorus Magnesium AST ALT Alkaline Phosphatase Lactate Dehydrogenase C-Reactive Protein Total Protein Albumin Triglycerides Arterial Blood Glucose Arterial Blood Ionized Calcium Urine WBC (Auto) U Epithel Cells (Auto) Urine Creatinine Random Vancomycin Heparin-induced Plt Ab Coronavirus (PCR) Crossmatch 03/20/21 03/20/21 03/20/21 04:00 04:00 04:37 WBC RBC Hgb Hct MCH MCHC RDW Plt Count Lymph % (Auto) [place] # (Auto) Eos # (Auto) Seg Neutrophils % Lymphocytes % (Manual) Eosinophils % (Manual) Basophils % (Manual) Nucleated RBC % Seg Neutrophils # Seg Neutrophils # Man Lymphocytes # (Manual) Monocytes # (Manual) Eosinophils # (Manual) Basophils # (Manual) Percent Retic PT INR Fibrinogen D-Dimer > 50193 H ABG pH 7.306 L POC ABG pCO2 POC ABG pO2 ABG pO2 ABG HCO3 27.9 H ABG O2 Saturation ABG Base Excess ABG Hemoglobin 5.2 L ABG Oxyhemoglobin ABG Sodium ABG Potassium ABG Chloride ABG Glucose Oxyhemoglobin Carboxyhemoglobin Sodium Potassium 5.2 H Chloride 97.6 L Carbon Dioxide BUN 52 H Creatinine 6.2 H Glucose 104 H POC Glucose Hemoglobin A1c Calcium Phosphorus 8.60 H Magnesium AST ALT Alkaline Phosphatase Lactate Dehydrogenase C-Reactive Protein 6.90 H Total Protein Albumin Triglycerides Arterial Blood Glucose Arterial Blood Ionized Calcium Urine WBC (Auto) U Epithel Cells (Auto) Urine Creatinine Random Vancomycin Heparin-induced Plt Ab Coronavirus (PCR) Crossmatch 03/20/21 03/20/21 03/20/21 13:50 17:46 17:56 WBC RBC Hgb Hct MCH MCHC RDW Plt Count Lymph % (Auto) [place] # (Auto) Eos # (Auto) Seg Neutrophils % Lymphocytes % (Manual) Eosinophils % (Manual) Basophils % (Manual) Nucleated RBC % Seg Neutrophils # Seg Neutrophils # Man Lymphocytes # (Manual) Monocytes # (Manual) Eosinophils # (Manual) Basophils # (Manual) Percent Retic PT INR Fibrinogen D-Dimer ABG pH POC ABG pCO2 POC ABG pO2 ABG pO2 ABG HCO3 ABG O2 Saturation ABG Base Excess ABG Hemoglobin ABG Oxyhemoglobin ABG Sodium ABG Potassium ABG Chloride ABG Glucose Oxyhemoglobin Carboxyhemoglobin Sodium Potassium Chloride Carbon Dioxide BUN 63 H 43 H Creatinine Glucose POC Glucose 145 H Hemoglobin A1c Calcium Phosphorus Magnesium AST ALT Alkaline Phosphatase Lactate Dehydrogenase C-Reactive Protein Total Protein Albumin Triglycerides Arterial Blood Glucose Arterial Blood Ionized Calcium Urine WBC (Auto) U Epithel Cells (Auto) Urine Creatinine Random Vancomycin Heparin-induced Plt Ab Coronavirus (PCR) Crossmatch 03/20/21 03/21/21 03/21/21 23:18 06:58 06:58 WBC 14.4 H RBC 3.41 L Hgb 9.5 L Hct 28.6 L MCH MCHC RDW 17.4 H Plt Count 107 L Lymph % (Auto) [place] # (Auto) Eos # (Auto) Seg Neutrophils % Lymphocytes % (Manual) Eosinophils % (Manual) Basophils % (Manual) Nucleated RBC % Seg Neutrophils # Seg Neutrophils # Man Lymphocytes # (Manual) Monocytes # (Manual) Eosinophils # (Manual) Basophils # (Manual) Percent Retic PT INR Fibrinogen D-Dimer ABG pH POC ABG pCO2 POC ABG pO2 ABG pO2 ABG HCO3 ABG O2 Saturation ABG Base Excess ABG Hemoglobin ABG Oxyhemoglobin ABG Sodium ABG Potassium ABG Chloride ABG Glucose Oxyhemoglobin Carboxyhemoglobin Sodium Potassium Chloride Carbon Dioxide BUN 60 H Creatinine 7.7 H Glucose POC Glucose 106 H Hemoglobin A1c Calcium Phosphorus Magnesium AST ALT Alkaline Phosphatase Lactate Dehydrogenase C-Reactive Protein Total Protein Albumin Triglycerides Arterial Blood Glucose Arterial Blood Ionized Calcium Urine WBC (Auto) U Epithel Cells (Auto) Urine Creatinine Random Vancomycin Heparin-induced Plt Ab Coronavirus (PCR) Crossmatch 03/21/21 03/21/21 03/21/21 11:11 18:04 Unknown WBC RBC Hgb Hct MCH MCHC RDW Plt Count Lymph % (Auto) [place] # (Auto) Eos # (Auto) Seg Neutrophils % Lymphocytes % (Manual) Eosinophils % (Manual) Basophils % (Manual) Nucleated RBC % Seg Neutrophils # Seg Neutrophils # Man Lymphocytes # (Manual) Monocytes # (Manual) Eosinophils # (Manual) Basophils # (Manual) Percent Retic PT INR Fibrinogen D-Dimer ABG pH 7.270 L POC ABG pCO2 58.7 H POC ABG pO2 76.9 L ABG pO2 ABG HCO3 ABG O2 Saturation ABG Base Excess ABG Hemoglobin 9.9 L ABG Oxyhemoglobin 92.4 L ABG Sodium 135.8 L ABG Potassium 4.6 H ABG Chloride ABG Glucose Oxyhemoglobin Carboxyhemoglobin 0.1 L Sodium Potassium Chloride Carbon Dioxide BUN Creatinine Glucose POC Glucose 109 H 141 H Hemoglobin A1c Calcium Phosphorus Magnesium AST ALT Alkaline Phosphatase Lactate Dehydrogenase C-Reactive Protein Total Protein Albumin Triglycerides Arterial Blood Glucose Arterial Blood Ionized Calcium 4.5 L Urine WBC (Auto) U Epithel Cells (Auto) Urine Creatinine Random Vancomycin Heparin-induced Plt Ab Coronavirus (PCR) Crossmatch 03/22/21 03/22/21 03/22/21 03:09 07:10 10:00 WBC RBC Hgb Hct MCH MCHC RDW Plt Count Lymph % (Auto) [place] # (Auto) Eos # (Auto) Seg Neutrophils % Lymphocytes % (Manual) Eosinophils % (Manual) Basophils % (Manual) Nucleated RBC % Seg Neutrophils # Seg Neutrophils # Man Lymphocytes # (Manual) Monocytes # (Manual) Eosinophils # (Manual) Basophils # (Manual) Percent Retic PT INR Fibrinogen D-Dimer ABG pH 7.206 L 7.245 L POC ABG pCO2 55.6 H POC ABG pO2 ABG pO2 90.6 H ABG HCO3 ABG O2 Saturation ABG Base Excess -4.4 L ABG Hemoglobin 9.0 L 8.4 L ABG Oxyhemoglobin ABG Sodium 123.4 L ABG Potassium 5.6 H ABG Chloride ABG Glucose 106 H Oxyhemoglobin 94.5 L Carboxyhemoglobin 0.1 L Sodium Potassium 5.4 H Chloride 96.8 L Carbon Dioxide BUN 89 H Creatinine 8.7 H Glucose 131 H POC Glucose Hemoglobin A1c Calcium Phosphorus Magnesium AST ALT Alkaline Phosphatase Lactate Dehydrogenase C-Reactive Protein 9.40 H Total Protein Albumin Triglycerides Arterial Blood Glucose 106 H Arterial Blood Ionized Calcium Urine WBC (Auto) U Epithel Cells (Auto) Urine Creatinine Random Vancomycin Heparin-induced Plt Ab Coronavirus (PCR) Crossmatch 03/22/21 03/22/21 03/22/21 10:00 12:37 13:19 WBC RBC 3.05 L Hgb 8.4 L Hct 25.5 L MCH MCHC RDW 17.5 H Plt Count 108 L Lymph % (Auto) [place] # (Auto) Eos # (Auto) Seg Neutrophils % Lymphocytes % (Manual) Eosinophils % (Manual) Basophils % (Manual) Nucleated RBC % Seg Neutrophils # Seg Neutrophils # Man Lymphocytes # (Manual) Monocytes # (Manual) Eosinophils # (Manual) Basophils # (Manual) Percent Retic PT INR Fibrinogen D-Dimer ABG pH POC ABG pCO2 POC ABG pO2 ABG pO2 ABG HCO3 ABG O2 Saturation ABG Base Excess ABG Hemoglobin ABG Oxyhemoglobin ABG Sodium ABG Potassium ABG Chloride ABG Glucose Oxyhemoglobin Carboxyhemoglobin Sodium Potassium Chloride Carbon Dioxide BUN Creatinine 8.7 H Glucose POC Glucose 140 H Hemoglobin A1c Calcium Phosphorus Magnesium AST ALT Alkaline Phosphatase Lactate Dehydrogenase C-Reactive Protein Total Protein Albumin Triglycerides Arterial Blood Glucose Arterial Blood Ionized Calcium Urine WBC (Auto) U Epithel Cells (Auto) Urine Creatinine Random Vancomycin Heparin-induced Plt Ab Coronavirus (PCR) Crossmatch 03/22/21 03/22/21 03/22/21 13:40 17:14 18:21 WBC RBC Hgb Hct MCH MCHC RDW Plt Count Lymph % (Auto) [place] # (Auto) Eos # (Auto) Seg Neutrophils % Lymphocytes % (Manual) Eosinophils % (Manual) Basophils % (Manual) Nucleated RBC % Seg Neutrophils # Seg Neutrophils # Man Lymphocytes # (Manual) Monocytes # (Manual) Eosinophils # (Manual) Basophils # (Manual) Percent Retic PT 15.8 H INR 1.14 H Fibrinogen D-Dimer > 37024 H ABG pH POC ABG pCO2 POC ABG pO2 ABG pO2 ABG HCO3 ABG O2 Saturation ABG Base Excess ABG Hemoglobin ABG Oxyhemoglobin ABG Sodium ABG Potassium ABG Chloride ABG Glucose Oxyhemoglobin Carboxyhemoglobin Sodium Potassium Chloride Carbon Dioxide BUN Creatinine Glucose POC Glucose 117 H 112 H Hemoglobin A1c Calcium Phosphorus Magnesium AST ALT Alkaline Phosphatase Lactate Dehydrogenase C-Reactive Protein Total Protein Albumin Triglycerides Arterial Blood Glucose Arterial Blood Ionized Calcium Urine WBC (Auto) U Epithel Cells (Auto) Urine Creatinine Random Vancomycin Heparin-induced Plt Ab Coronavirus (PCR) Crossmatch 03/22/21 03/22/21 03/23/21 21:25 22:57 04:30 WBC RBC Hgb Hct MCH MCHC RDW Plt Count Lymph % (Auto) [place] # (Auto) Eos # (Auto) Seg Neutrophils % Lymphocytes % (Manual) Eosinophils % (Manual) Basophils % (Manual) Nucleated RBC % Seg Neutrophils # Seg Neutrophils # Man Lymphocytes # (Manual) Monocytes # (Manual) Eosinophils # (Manual) Basophils # (Manual) Percent Retic PT INR Fibrinogen D-Dimer ABG pH 7.188 L* POC ABG pCO2 POC ABG pO2 ABG pO2 97.9 H ABG HCO3 ABG O2 Saturation ABG Base Excess -3.7 L ABG Hemoglobin 9.2 L ABG Oxyhemoglobin ABG Sodium ABG Potassium ABG Chloride ABG Glucose Oxyhemoglobin 94.4 L Carboxyhemoglobin Sodium Potassium Chloride Carbon Dioxide BUN Creatinine Glucose POC Glucose 106 H Hemoglobin A1c Calcium Phosphorus Magnesium AST ALT Alkaline Phosphatase Lactate Dehydrogenase C-Reactive Protein Total Protein Albumin Triglycerides 381 H Arterial Blood Glucose Arterial Blood Ionized Calcium Urine WBC (Auto) U Epithel Cells (Auto) Urine Creatinine Random Vancomycin Heparin-induced Plt Ab Coronavirus (PCR) Crossmatch 03/23/21 03/23/21 03/23/21 04:30 04:30 05:37 WBC 20.1 H RBC 3.17 L Hgb 8.6 L Hct 27.2 L MCH 27 L MCHC RDW 17.4 H Plt Count 118 L Lymph % (Auto) [place] # (Auto) Eos # (Auto) Seg Neutrophils % Lymphocytes % (Manual) Eosinophils % (Manual) Basophils % (Manual) Nucleated RBC % Seg Neutrophils # Seg Neutrophils # Man Lymphocytes # (Manual) Monocytes # (Manual) Eosinophils # (Manual) Basophils # (Manual) Percent Retic PT INR Fibrinogen D-Dimer ABG pH POC ABG pCO2 POC ABG pO2 ABG pO2 ABG HCO3 ABG O2 Saturation ABG Base Excess ABG Hemoglobin ABG Oxyhemoglobin ABG Sodium ABG Potassium ABG Chloride ABG Glucose Oxyhemoglobin Carboxyhemoglobin Sodium Potassium 5.2 H Chloride 97.1 L Carbon Dioxide 21 L BUN 82 H Creatinine 9.1 H Glucose 109 H POC Glucose 130 H Hemoglobin A1c Calcium Phosphorus 10.80 H Magnesium 3.50 H AST ALT Alkaline Phosphatase Lactate Dehydrogenase C-Reactive Protein Total Protein Albumin Triglycerides Arterial Blood Glucose Arterial Blood Ionized Calcium Urine WBC (Auto) U Epithel Cells (Auto) Urine Creatinine Random Vancomycin Heparin-induced Plt Ab Coronavirus (PCR) Crossmatch 03/23/21 03/23/21 03/23/21 08:44 11:30 16:09 WBC RBC Hgb Hct MCH MCHC RDW Plt Count Lymph % (Auto) [place] # (Auto) Eos # (Auto) Seg Neutrophils % Lymphocytes % (Manual) Eosinophils % (Manual) Basophils % (Manual) Nucleated RBC % Seg Neutrophils # Seg Neutrophils # Man Lymphocytes # (Manual) Monocytes # (Manual) Eosinophils # (Manual) Basophils # (Manual) Percent Retic PT INR Fibrinogen D-Dimer ABG pH 7.190 L POC ABG pCO2 57.9 H POC ABG pO2 79.2 L ABG pO2 ABG HCO3 ABG O2 Saturation ABG Base Excess ABG Hemoglobin 11.8 L ABG Oxyhemoglobin 92.3 L ABG Sodium 131.0 L ABG Potassium 5.0 H ABG Chloride ABG Glucose 122 H Oxyhemoglobin Carboxyhemoglobin 0.4 L Sodium Potassium Chloride Carbon Dioxide BUN Creatinine Glucose POC Glucose 129 H 148 H Hemoglobin A1c Calcium Phosphorus Magnesium AST ALT Alkaline Phosphatase Lactate Dehydrogenase C-Reactive Protein Total Protein Albumin Triglycerides Arterial Blood Glucose 122 H Arterial Blood Ionized Calcium 4.4 L Urine WBC (Auto) U Epithel Cells (Auto) Urine Creatinine Random Vancomycin Heparin-induced Plt Ab Coronavirus (PCR) Crossmatch 03/23/21 03/24/21 03/24/21 21:00 03:35 04:00 WBC 17.8 H RBC 2.96 L Hgb 8.1 L Hct 25.0 L MCH 27 L MCHC RDW 17.7 H Plt Count 124 L Lymph % (Auto) [place] # (Auto) Eos # (Auto) Seg Neutrophils % Lymphocytes % (Manual) Eosinophils % (Manual) Basophils % (Manual) Nucleated RBC % Seg Neutrophils # Seg Neutrophils # Man Lymphocytes # (Manual) Monocytes # (Manual) Eosinophils # (Manual) Basophils # (Manual) Percent Retic PT INR Fibrinogen D-Dimer ABG pH 7.223 L POC ABG pCO2 50.3 H POC ABG pO2 114.4 H ABG pO2 ABG HCO3 ABG O2 Saturation ABG Base Excess ABG Hemoglobin 8.8 L ABG Oxyhemoglobin ABG Sodium 130.4 L ABG Potassium 5.1 H ABG Chloride ABG Glucose 126 H Oxyhemoglobin Carboxyhemoglobin 0.2 L Sodium Potassium Chloride Carbon Dioxide BUN Creatinine Glucose POC Glucose 148 H Hemoglobin A1c Calcium Phosphorus Magnesium AST ALT Alkaline Phosphatase Lactate Dehydrogenase C-Reactive Protein Total Protein Albumin Triglycerides Arterial Blood Glucose 126 H Arterial Blood Ionized Calcium 4.4 L Urine WBC (Auto) U Epithel Cells (Auto) Urine Creatinine Random Vancomycin Heparin-induced Plt Ab Coronavirus (PCR) Crossmatch 03/24/21 03/24/21 03/24/21 04:00 06:49 12:29 WBC RBC Hgb Hct MCH MCHC RDW Plt Count Lymph % (Auto) [place] # (Auto) Eos # (Auto) Seg Neutrophils % Lymphocytes % (Manual) Eosinophils % (Manual) Basophils % (Manual) Nucleated RBC % Seg Neutrophils # Seg Neutrophils # Man Lymphocytes # (Manual) Monocytes # (Manual) Eosinophils # (Manual) Basophils # (Manual) Percent Retic PT INR Fibrinogen D-Dimer ABG pH POC ABG pCO2 POC ABG pO2 ABG pO2 ABG HCO3 ABG O2 Saturation ABG Base Excess ABG Hemoglobin ABG Oxyhemoglobin ABG Sodium ABG Potassium ABG Chloride ABG Glucose Oxyhemoglobin Carboxyhemoglobin Sodium Potassium Chloride 95.6 L Carbon Dioxide 20 L BUN 108 H Creatinine 10.8 H Glucose 155 H POC Glucose 136 H 142 H Hemoglobin A1c Calcium Phosphorus Magnesium AST ALT Alkaline Phosphatase Lactate Dehydrogenase C-Reactive Protein Total Protein Albumin Triglycerides Arterial Blood Glucose Arterial Blood Ionized Calcium Urine WBC (Auto) U Epithel Cells (Auto) Urine Creatinine Random Vancomycin Heparin-induced Plt Ab Coronavirus (PCR) Crossmatch 03/24/21 03/25/21 03/25/21 21:35 00:15 05:51 WBC RBC Hgb Hct MCH MCHC RDW Plt Count Lymph % (Auto) [place] # (Auto) Eos # (Auto) Seg Neutrophils % Lymphocytes % (Manual) Eosinophils % (Manual) Basophils % (Manual) Nucleated RBC % Seg Neutrophils # Seg Neutrophils # Man Lymphocytes # (Manual) Monocytes # (Manual) Eosinophils # (Manual) Basophils # (Manual) Percent Retic PT INR Fibrinogen D-Dimer ABG pH 7.241 L POC ABG pCO2 POC ABG pO2 ABG pO2 72.4 L ABG HCO3 ABG O2 Saturation 90.3 L ABG Base Excess ABG Hemoglobin 7.9 L ABG Oxyhemoglobin ABG Sodium ABG Potassium ABG Chloride ABG Glucose Oxyhemoglobin 88.4 L Carboxyhemoglobin Sodium Potassium Chloride Carbon Dioxide BUN Creatinine Glucose POC Glucose 110 H 121 H Hemoglobin A1c Calcium Phosphorus Magnesium AST ALT Alkaline Phosphatase Lactate Dehydrogenase C-Reactive Protein Total Protein Albumin Triglycerides Arterial Blood Glucose Arterial Blood Ionized Calcium Urine WBC (Auto) U Epithel Cells (Auto) Urine Creatinine Random Vancomycin Heparin-induced Plt Ab Coronavirus (PCR) Crossmatch 03/25/21 03/25/21 03/25/21 05:54 05:54 12:21 WBC 12.4 H RBC 2.52 L Hgb 6.9 L Hct 21.1 L MCH MCHC RDW 17.4 H Plt Count 102 L Lymph % (Auto) [place] # (Auto) Eos # (Auto) Seg Neutrophils % Lymphocytes % (Manual) Eosinophils % (Manual) Basophils % (Manual) Nucleated RBC % Seg Neutrophils # Seg Neutrophils # Man Lymphocytes # (Manual) Monocytes # (Manual) Eosinophils # (Manual) Basophils # (Manual) Percent Retic PT INR Fibrinogen D-Dimer ABG pH POC ABG pCO2 POC ABG pO2 ABG pO2 ABG HCO3 ABG O2 Saturation ABG Base Excess ABG Hemoglobin ABG Oxyhemoglobin ABG Sodium ABG Potassium ABG Chloride ABG Glucose Oxyhemoglobin Carboxyhemoglobin Sodium Potassium Chloride 96.7 L Carbon Dioxide BUN 81 H Creatinine 8.1 H Glucose 116 H POC Glucose 138 H Hemoglobin A1c Calcium 8.2 L Phosphorus Magnesium AST ALT Alkaline Phosphatase Lactate Dehydrogenase C-Reactive Protein Total Protein Albumin Triglycerides Arterial Blood Glucose Arterial Blood Ionized Calcium Urine WBC (Auto) U Epithel Cells (Auto) Urine Creatinine Random Vancomycin Heparin-induced Plt Ab Coronavirus (PCR) Crossmatch 03/25/21 03/25/21 03/25/21 13:45 17:32 21:30 WBC RBC Hgb Hct MCH MCHC RDW Plt Count Lymph % (Auto) [place] # (Auto) Eos # (Auto) Seg Neutrophils % Lymphocytes % (Manual) Eosinophils % (Manual) Basophils % (Manual) Nucleated RBC % Seg Neutrophils # Seg Neutrophils # Man Lymphocytes # (Manual) Monocytes # (Manual) Eosinophils # (Manual) Basophils # (Manual) Percent Retic PT INR Fibrinogen D-Dimer ABG pH POC ABG pCO2 POC ABG pO2 ABG pO2 70.2 L ABG HCO3 ABG O2 Saturation ABG Base Excess ABG Hemoglobin 6.8 L ABG Oxyhemoglobin ABG Sodium ABG Potassium ABG Chloride ABG Glucose Oxyhemoglobin 94.5 L Carboxyhemoglobin Sodium Potassium Chloride Carbon Dioxide BUN Creatinine Glucose POC Glucose 110 H Hemoglobin A1c Calcium Phosphorus Magnesium AST ALT Alkaline Phosphatase Lactate Dehydrogenase C-Reactive Protein Total Protein Albumin Triglycerides Arterial Blood Glucose Arterial Blood Ionized Calcium Urine WBC (Auto) U Epithel Cells (Auto) Urine Creatinine Random Vancomycin Heparin-induced Plt Ab Coronavirus (PCR) Crossmatch See Detail 03/25/21 03/25/21 03/26/21 23:29 Unknown 05:15 WBC 12.4 H 14.0 H RBC 2.49 L 2.83 L Hgb 6.8 L 7.6 L Hct 20.9 L 23.6 L MCH 27 L 27 L MCHC RDW 18.0 H 17.1 H Plt Count 107 L 116 L Lymph % (Auto) [place] # (Auto) Eos # (Auto) Seg Neutrophils % Lymphocytes % (Manual) Eosinophils % (Manual) Basophils % (Manual) Nucleated RBC % Seg Neutrophils # Seg Neutrophils # Man Lymphocytes # (Manual) Monocytes # (Manual) Eosinophils # (Manual) Basophils # (Manual) Percent Retic PT INR Fibrinogen D-Dimer ABG pH POC ABG pCO2 POC ABG pO2 ABG pO2 ABG HCO3 ABG O2 Saturation ABG Base Excess ABG Hemoglobin ABG Oxyhemoglobin ABG Sodium ABG Potassium ABG Chloride ABG Glucose Oxyhemoglobin Carboxyhemoglobin Sodium Potassium Chloride Carbon Dioxide BUN Creatinine Glucose POC Glucose 113 H Hemoglobin A1c Calcium Phosphorus Magnesium AST ALT Alkaline Phosphatase Lactate Dehydrogenase C-Reactive Protein Total Protein Albumin Triglycerides Arterial Blood Glucose Arterial Blood Ionized Calcium Urine WBC (Auto) U Epithel Cells (Auto) Urine Creatinine Random Vancomycin Heparin-induced Plt Ab Coronavirus (PCR) Crossmatch 03/26/21 03/26/21 03/26/21 05:15 05:35 09:50 WBC RBC Hgb Hct MCH MCHC RDW Plt Count Lymph % (Auto) [place] # (Auto) Eos # (Auto) Seg Neutrophils % Lymphocytes % (Manual) Eosinophils % (Manual) Basophils % (Manual) Nucleated RBC % Seg Neutrophils # Seg Neutrophils # Man Lymphocytes # (Manual) Monocytes # (Manual) Eosinophils # (Manual) Basophils # (Manual) Percent Retic PT INR Fibrinogen D-Dimer ABG pH POC ABG pCO2 POC ABG pO2 ABG pO2 79.9 L ABG HCO3 ABG O2 Saturation ABG Base Excess ABG Hemoglobin 7.1 L ABG Oxyhemoglobin ABG Sodium ABG Potassium ABG Chloride ABG Glucose Oxyhemoglobin 94.9 L Carboxyhemoglobin Sodium Potassium 3.4 L Chloride Carbon Dioxide BUN 70 H Creatinine 7.3 H Glucose 142 H POC Glucose 130 H Hemoglobin A1c Calcium 8.2 L Phosphorus Magnesium AST ALT Alkaline Phosphatase Lactate Dehydrogenase C-Reactive Protein Total Protein Albumin Triglycerides 254 H Arterial Blood Glucose Arterial Blood Ionized Calcium Urine WBC (Auto) U Epithel Cells (Auto) Urine Creatinine Random Vancomycin Heparin-induced Plt Ab Coronavirus (PCR) Crossmatch 03/26/21 03/26/21 03/26/21 11:45 16:36 23:33 WBC RBC Hgb Hct MCH MCHC RDW Plt Count Lymph % (Auto) [place] # (Auto) Eos # (Auto) Seg Neutrophils % Lymphocytes % (Manual) Eosinophils % (Manual) Basophils % (Manual) Nucleated RBC % Seg Neutrophils # Seg Neutrophils # Man Lymphocytes # (Manual) Monocytes # (Manual) Eosinophils # (Manual) Basophils # (Manual) Percent Retic PT INR Fibrinogen D-Dimer ABG pH POC ABG pCO2 POC ABG pO2 ABG pO2 ABG HCO3 ABG O2 Saturation ABG Base Excess ABG Hemoglobin ABG Oxyhemoglobin ABG Sodium ABG Potassium ABG Chloride ABG Glucose Oxyhemoglobin Carboxyhemoglobin Sodium Potassium Chloride Carbon Dioxide BUN Creatinine Glucose POC Glucose 123 H 121 H 120 H Hemoglobin A1c Calcium Phosphorus Magnesium AST ALT Alkaline Phosphatase Lactate Dehydrogenase C-Reactive Protein Total Protein Albumin Triglycerides Arterial Blood Glucose Arterial Blood Ionized Calcium Urine WBC (Auto) U Epithel Cells (Auto) Urine Creatinine Random Vancomycin Heparin-induced Plt Ab Coronavirus (PCR) Crossmatch 03/27/21 03/27/21 03/27/21 03:20 04:14 08:20 WBC 13.2 H RBC 2.82 L Hgb 7.9 L Hct 23.5 L MCH MCHC RDW 17.3 H Plt Count 125 L Lymph % (Auto) [place] # (Auto) Eos # (Auto) Seg Neutrophils % Lymphocytes % (Manual) Eosinophils % (Manual) Basophils % (Manual) Nucleated RBC % Seg Neutrophils # Seg Neutrophils # Man Lymphocytes # (Manual) Monocytes # (Manual) Eosinophils # (Manual) Basophils # (Manual) Percent Retic PT INR Fibrinogen D-Dimer ABG pH POC ABG pCO2 50.0 H POC ABG pO2 58.3 L ABG pO2 ABG HCO3 ABG O2 Saturation ABG Base Excess ABG Hemoglobin 11.3 L ABG Oxyhemoglobin 88.5 L ABG Sodium ABG Potassium ABG Chloride ABG Glucose 132 H Oxyhemoglobin Carboxyhemoglobin 0.2 L Sodium Potassium Chloride Carbon Dioxide BUN Creatinine Glucose POC Glucose 119 H Hemoglobin A1c Calcium Phosphorus Magnesium AST ALT Alkaline Phosphatase Lactate Dehydrogenase C-Reactive Protein Total Protein Albumin Triglycerides Arterial Blood Glucose 132 H Arterial Blood Ionized Calcium Urine WBC (Auto) U Epithel Cells (Auto) Urine Creatinine Random Vancomycin Heparin-induced Plt Ab Coronavirus (PCR) Crossmatch 03/27/21 03/27/21 03/27/21 08:20 11:39 17:32 WBC RBC Hgb Hct MCH MCHC RDW Plt Count Lymph % (Auto) [place] # (Auto) Eos # (Auto) Seg Neutrophils % Lymphocytes % (Manual) Eosinophils % (Manual) Basophils % (Manual) Nucleated RBC % Seg Neutrophils # Seg Neutrophils # Man Lymphocytes # (Manual) Monocytes # (Manual) Eosinophils # (Manual) Basophils # (Manual) Percent Retic PT INR Fibrinogen D-Dimer ABG pH POC ABG pCO2 POC ABG pO2 ABG pO2 ABG HCO3 ABG O2 Saturation ABG Base Excess ABG Hemoglobin ABG Oxyhemoglobin ABG Sodium ABG Potassium ABG Chloride ABG Glucose Oxyhemoglobin Carboxyhemoglobin Sodium Potassium Chloride Carbon Dioxide BUN 57 H Creatinine 6.8 H Glucose 131 H POC Glucose 121 H 126 H Hemoglobin A1c Calcium Phosphorus Magnesium AST ALT Alkaline Phosphatase Lactate Dehydrogenase C-Reactive Protein Total Protein Albumin Triglycerides Arterial Blood Glucose Arterial Blood Ionized Calcium Urine WBC (Auto) U Epithel Cells (Auto) Urine Creatinine Random Vancomycin Heparin-induced Plt Ab Coronavirus (PCR) Crossmatch 03/28/21 03/28/21 03/28/21 00:10 04:45 05:25 WBC RBC Hgb Hct MCH MCHC RDW Plt Count Lymph % (Auto) [place] # (Auto) Eos # (Auto) Seg Neutrophils % Lymphocytes % (Manual) Eosinophils % (Manual) Basophils % (Manual) Nucleated RBC % Seg Neutrophils # Seg Neutrophils # Man Lymphocytes # (Manual) Monocytes # (Manual) Eosinophils # (Manual) Basophils # (Manual) Percent Retic PT INR Fibrinogen D-Dimer ABG pH POC ABG pCO2 POC ABG pO2 ABG pO2 57.6 L ABG HCO3 27.1 H ABG O2 Saturation 88.5 L ABG Base Excess ABG Hemoglobin ABG Oxyhemoglobin ABG Sodium ABG Potassium ABG Chloride ABG Glucose Oxyhemoglobin 86.6 L Carboxyhemoglobin Sodium Potassium Chloride Carbon Dioxide BUN Creatinine Glucose POC Glucose 113 H 121 H Hemoglobin A1c Calcium Phosphorus Magnesium AST ALT Alkaline Phosphatase Lactate Dehydrogenase C-Reactive Protein Total Protein Albumin Triglycerides Arterial Blood Glucose Arterial Blood Ionized Calcium Urine WBC (Auto) U Epithel Cells (Auto) Urine Creatinine Random Vancomycin Heparin-induced Plt Ab Coronavirus (PCR) Crossmatch 03/28/21 03/28/21 03/28/21 09:37 09:37 11:48 WBC 16.3 H RBC 2.92 L Hgb 8.2 L Hct 24.8 L MCH MCHC RDW 17.5 H Plt Count Lymph % (Auto) 10.7 L [place] # (Auto) 0.9 H Eos # (Auto) 0.6 H Seg Neutrophils % 80.0 H Lymphocytes % (Manual) Eosinophils % (Manual) Basophils % (Manual) Nucleated RBC % Seg Neutrophils # 13.0 H Seg Neutrophils # Man Lymphocytes # (Manual) Monocytes # (Manual) Eosinophils # (Manual) Basophils # (Manual) Percent Retic PT INR Fibrinogen D-Dimer ABG pH POC ABG pCO2 POC ABG pO2 ABG pO2 ABG HCO3 ABG O2 Saturation ABG Base Excess ABG Hemoglobin ABG Oxyhemoglobin ABG Sodium ABG Potassium ABG Chloride ABG Glucose Oxyhemoglobin Carboxyhemoglobin Sodium Potassium Chloride Carbon Dioxide BUN 61 H Creatinine 7.7 H Glucose 148 H POC Glucose 123 H Hemoglobin A1c Calcium Phosphorus Magnesium AST ALT Alkaline Phosphatase Lactate Dehydrogenase C-Reactive Protein Total Protein Albumin Triglycerides Arterial Blood Glucose Arterial Blood Ionized Calcium Urine WBC (Auto) U Epithel Cells (Auto) Urine Creatinine Random Vancomycin Heparin-induced Plt Ab Coronavirus (PCR) Crossmatch 03/28/21 03/28/21 03/28/21 17:33 21:08 23:38 WBC RBC Hgb Hct MCH MCHC RDW Plt Count Lymph % (Auto) [place] # (Auto) Eos # (Auto) Seg Neutrophils % Lymphocytes % (Manual) Eosinophils % (Manual) Basophils % (Manual) Nucleated RBC % Seg Neutrophils # Seg Neutrophils # Man Lymphocytes # (Manual) Monocytes # (Manual) Eosinophils # (Manual) Basophils # (Manual) Percent Retic PT INR Fibrinogen D-Dimer ABG pH POC ABG pCO2 POC ABG pO2 80.5 L ABG pO2 ABG HCO3 ABG O2 Saturation ABG Base Excess ABG Hemoglobin 9.5 L ABG Oxyhemoglobin ABG Sodium 133.3 L ABG Potassium ABG Chloride ABG Glucose 134 H Oxyhemoglobin Carboxyhemoglobin 0.3 L Sodium Potassium Chloride Carbon Dioxide BUN Creatinine Glucose POC Glucose 128 H 112 H Hemoglobin A1c Calcium Phosphorus Magnesium AST ALT Alkaline Phosphatase Lactate Dehydrogenase C-Reactive Protein Total Protein Albumin Triglycerides Arterial Blood Glucose 134 H Arterial Blood Ionized Calcium Urine WBC (Auto) U Epithel Cells (Auto) Urine Creatinine Random Vancomycin Heparin-induced Plt Ab Coronavirus (PCR) Crossmatch 03/29/21 03/29/21 03/29/21 04:45 04:45 04:45 WBC 17.5 H RBC 3.15 L Hgb 8.8 L Hct 27.2 L MCH MCHC RDW 17.9 H Plt Count 132 L Lymph % (Auto) [place] # (Auto) Eos # (Auto) Seg Neutrophils % Lymphocytes % (Manual) Eosinophils % (Manual) Basophils % (Manual) Nucleated RBC % Seg Neutrophils # Seg Neutrophils # Man Lymphocytes # (Manual) Monocytes # (Manual) Eosinophils # (Manual) Basophils # (Manual) Percent Retic PT INR Fibrinogen D-Dimer ABG pH POC ABG pCO2 POC ABG pO2 ABG pO2 ABG HCO3 ABG O2 Saturation ABG Base Excess ABG Hemoglobin ABG Oxyhemoglobin ABG Sodium ABG Potassium ABG Chloride ABG Glucose Oxyhemoglobin Carboxyhemoglobin Sodium Potassium Chloride 97.7 L Carbon Dioxide 21 L BUN 78 H Creatinine 9.5 H Glucose 132 H POC Glucose Hemoglobin A1c Calcium Phosphorus Magnesium AST ALT Alkaline Phosphatase Lactate Dehydrogenase C-Reactive Protein Total Protein Albumin 2.2 L Triglycerides 385 H Arterial Blood Glucose Arterial Blood Ionized Calcium Urine WBC (Auto) U Epithel Cells (Auto) Urine Creatinine Random Vancomycin Heparin-induced Plt Ab Coronavirus (PCR) Crossmatch 03/29/21 03/29/21 03/29/21 11:35 16:50 21:06 WBC RBC Hgb Hct MCH MCHC RDW Plt Count Lymph % (Auto) [place] # (Auto) Eos # (Auto) Seg Neutrophils % Lymphocytes % (Manual) Eosinophils % (Manual) Basophils % (Manual) Nucleated RBC % Seg Neutrophils # Seg Neutrophils # Man Lymphocytes # (Manual) Monocytes # (Manual) Eosinophils # (Manual) Basophils # (Manual) Percent Retic PT INR Fibrinogen D-Dimer ABG pH POC ABG pCO2 POC ABG pO2 ABG pO2 64.9 L ABG HCO3 ABG O2 Saturation ABG Base Excess -5.2 L ABG Hemoglobin ABG Oxyhemoglobin ABG Sodium ABG Potassium ABG Chloride ABG Glucose Oxyhemoglobin 85.1 L Carboxyhemoglobin Sodium Potassium Chloride Carbon Dioxide BUN Creatinine Glucose POC Glucose 148 H 133 H Hemoglobin A1c Calcium Phosphorus Magnesium AST ALT Alkaline Phosphatase Lactate Dehydrogenase C-Reactive Protein Total Protein Albumin Triglycerides Arterial Blood Glucose Arterial Blood Ionized Calcium Urine WBC (Auto) U Epithel Cells (Auto) Urine Creatinine Random Vancomycin Heparin-induced Plt Ab Coronavirus (PCR) Crossmatch 03/29/21 03/30/21 03/30/21 Unknown 00:13 04:00 WBC 15.7 H RBC 3.18 L Hgb 8.6 L Hct 27.3 L MCH 27 L MCHC RDW 18.0 H Plt Count 86 L Lymph % (Auto) [place] # (Auto) Eos # (Auto) Seg Neutrophils % Lymphocytes % (Manual) Eosinophils % (Manual) Basophils % (Manual) Nucleated RBC % Seg Neutrophils # Seg Neutrophils # Man Lymphocytes # (Manual) Monocytes # (Manual) Eosinophils # (Manual) Basophils # (Manual) Percent Retic PT INR Fibrinogen D-Dimer ABG pH 7.258 L POC ABG pCO2 POC ABG pO2 ABG pO2 ABG HCO3 ABG O2 Saturation ABG Base Excess -4.9 L ABG Hemoglobin 8.8 L ABG Oxyhemoglobin ABG Sodium ABG Potassium ABG Chloride ABG Glucose Oxyhemoglobin 93.9 L Carboxyhemoglobin Sodium Potassium Chloride Carbon Dioxide BUN Creatinine Glucose POC Glucose 129 H Hemoglobin A1c Calcium Phosphorus Magnesium AST ALT Alkaline Phosphatase Lactate Dehydrogenase C-Reactive Protein Total Protein Albumin Triglycerides Arterial Blood Glucose Arterial Blood Ionized Calcium Urine WBC (Auto) U Epithel Cells (Auto) Urine Creatinine Random Vancomycin Heparin-induced Plt Ab Coronavirus (PCR) Crossmatch 03/30/21 03/30/21 03/30/21 04:00 04:00 06:02 WBC RBC Hgb Hct MCH MCHC RDW Plt Count Lymph % (Auto) [place] # (Auto) Eos # (Auto) Seg Neutrophils % Lymphocytes % (Manual) Eosinophils % (Manual) Basophils % (Manual) Nucleated RBC % Seg Neutrophils # Seg Neutrophils # Man Lymphocytes # (Manual) Monocytes # (Manual) Eosinophils # (Manual) Basophils # (Manual) Percent Retic PT INR Fibrinogen D-Dimer 2607.12 H ABG pH POC ABG pCO2 POC ABG pO2 ABG pO2 ABG HCO3 ABG O2 Saturation ABG Base Excess ABG Hemoglobin ABG Oxyhemoglobin ABG Sodium ABG Potassium ABG Chloride ABG Glucose Oxyhemoglobin Carboxyhemoglobin Sodium 133 L Potassium 5.2 H D Chloride 91.5 L Carbon Dioxide 18 L BUN 101 H Creatinine 10.6 H Glucose 149 H POC Glucose 130 H Hemoglobin A1c Calcium Phosphorus 10.30 H Magnesium AST ALT Alkaline Phosphatase Lactate Dehydrogenase C-Reactive Protein 21.50 H Total Protein Albumin Triglycerides Arterial Blood Glucose Arterial Blood Ionized Calcium Urine WBC (Auto) U Epithel Cells (Auto) Urine Creatinine Random Vancomycin Heparin-induced Plt Ab Coronavirus (PCR) Crossmatch 03/30/21 03/30/21 03/30/21 10:36 11:48 17:20 WBC RBC Hgb Hct MCH MCHC RDW Plt Count Lymph % (Auto) [place] # (Auto) Eos # (Auto) Seg Neutrophils % Lymphocytes % (Manual) Eosinophils % (Manual) Basophils % (Manual) Nucleated RBC % Seg Neutrophils # Seg Neutrophils # Man Lymphocytes # (Manual) Monocytes # (Manual) Eosinophils # (Manual) Basophils # (Manual) Percent Retic PT INR Fibrinogen D-Dimer ABG pH 7.224 L POC ABG pCO2 49.1 H POC ABG pO2 61.5 L ABG pO2 ABG HCO3 ABG O2 Saturation ABG Base Excess ABG Hemoglobin 10.2 L ABG Oxyhemoglobin 86.2 L ABG Sodium 129.6 L ABG Potassium 5.4 H ABG Chloride 96.0 L ABG Glucose 161 H Oxyhemoglobin Carboxyhemoglobin Sodium Potassium Chloride Carbon Dioxide BUN Creatinine Glucose POC Glucose 163 H 130 H Hemoglobin A1c Calcium Phosphorus Magnesium AST ALT Alkaline Phosphatase Lactate Dehydrogenase C-Reactive Protein Total Protein Albumin Triglycerides Arterial Blood Glucose 161 H Arterial Blood Ionized Calcium 4.4 L Urine WBC (Auto) U Epithel Cells (Auto) Urine Creatinine Random Vancomycin Heparin-induced Plt Ab Coronavirus (PCR) Crossmatch 03/30/21 03/31/21 03/31/21 23:49 00:28 05:20 WBC 17.3 H RBC 2.99 L Hgb 8.2 L Hct 25.3 L MCH 27 L MCHC RDW 18.3 H Plt Count 126 L Lymph % (Auto) [place] # (Auto) Eos # (Auto) Seg Neutrophils % Lymphocytes % (Manual) Eosinophils % (Manual) Basophils % (Manual) Nucleated RBC % Seg Neutrophils # Seg Neutrophils # Man Lymphocytes # (Manual) Monocytes # (Manual) Eosinophils # (Manual) Basophils # (Manual) Percent Retic PT INR Fibrinogen D-Dimer ABG pH 7.249 L POC ABG pCO2 POC ABG pO2 77.7 L ABG pO2 ABG HCO3 ABG O2 Saturation ABG Base Excess ABG Hemoglobin 9.0 L ABG Oxyhemoglobin 92.9 L ABG Sodium 130.4 L ABG Potassium 4.7 H ABG Chloride ABG Glucose 166 H Oxyhemoglobin Carboxyhemoglobin 0.4 L Sodium Potassium Chloride Carbon Dioxide BUN Creatinine Glucose POC Glucose 143 H Hemoglobin A1c Calcium Phosphorus Magnesium AST ALT Alkaline Phosphatase Lactate Dehydrogenase C-Reactive Protein Total Protein Albumin Triglycerides Arterial Blood Glucose 166 H Arterial Blood Ionized Calcium 4.3 L Urine WBC (Auto) U Epithel Cells (Auto) Urine Creatinine Random Vancomycin Heparin-induced Plt Ab Coronavirus (PCR) Crossmatch 03/31/21 03/31/21 03/31/21 05:20 06:18 09:44 WBC RBC Hgb Hct MCH MCHC RDW Plt Count Lymph % (Auto) [place] # (Auto) Eos # (Auto) Seg Neutrophils % Lymphocytes % (Manual) Eosinophils % (Manual) Basophils % (Manual) Nucleated RBC % Seg Neutrophils # Seg Neutrophils # Man Lymphocytes # (Manual) Monocytes # (Manual) Eosinophils # (Manual) Basophils # (Manual) Percent Retic PT INR Fibrinogen D-Dimer ABG pH 7.247 L POC ABG pCO2 POC ABG pO2 ABG pO2 ABG HCO3 ABG O2 Saturation 94.4 L ABG Base Excess -5.1 L ABG Hemoglobin 8.2 L ABG Oxyhemoglobin ABG Sodium ABG Potassium ABG Chloride ABG Glucose Oxyhemoglobin 92.4 L Carboxyhemoglobin Sodium Potassium Chloride Carbon Dioxide BUN Creatinine Glucose POC Glucose 155 H Hemoglobin A1c Calcium Phosphorus 8.20 H D Magnesium AST ALT Alkaline Phosphatase Lactate Dehydrogenase C-Reactive Protein Total Protein Albumin Triglycerides Arterial Blood Glucose Arterial Blood Ionized Calcium Urine WBC (Auto) U Epithel Cells (Auto) Urine Creatinine Random Vancomycin Heparin-induced Plt Ab Coronavirus (PCR) Crossmatch 03/31/21 03/31/21 03/31/21 09:49 09:55 09:55 WBC RBC Hgb Hct MCH MCHC RDW Plt Count Lymph % (Auto) [place] # (Auto) Eos # (Auto) Seg Neutrophils % Lymphocytes % (Manual) Eosinophils % (Manual) Basophils % (Manual) Nucleated RBC % Seg Neutrophils # Seg Neutrophils # Man Lymphocytes # (Manual) Monocytes # (Manual) Eosinophils # (Manual) Basophils # (Manual) Percent Retic 4.52 H PT 16.5 H INR 1.20 H Fibrinogen D-Dimer ABG pH POC ABG pCO2 POC ABG pO2 ABG pO2 ABG HCO3 ABG O2 Saturation ABG Base Excess ABG Hemoglobin ABG Oxyhemoglobin ABG Sodium ABG Potassium ABG Chloride ABG Glucose Oxyhemoglobin Carboxyhemoglobin Sodium 133 L Potassium Chloride 92.8 L Carbon Dioxide 20 L BUN 87 H Creatinine 8.9 H Glucose 177 H POC Glucose Hemoglobin A1c Calcium 8.2 L Phosphorus Magnesium AST 169 H ALT Alkaline Phosphatase 187 H Lactate Dehydrogenase C-Reactive Protein Total Protein Albumin 2.3 L Triglycerides Arterial Blood Glucose Arterial Blood Ionized Calcium Urine WBC (Auto) U Epithel Cells (Auto) Urine Creatinine Random Vancomycin Heparin-induced Plt Ab Coronavirus (PCR) Crossmatch 03/31/21 03/31/21 03/31/21 09:55 09:55 11:25 WBC RBC Hgb Hct MCH MCHC RDW Plt Count Lymph % (Auto) [place] # (Auto) Eos # (Auto) Seg Neutrophils % Lymphocytes % (Manual) Eosinophils % (Manual) Basophils % (Manual) Nucleated RBC % Seg Neutrophils # Seg Neutrophils # Man Lymphocytes # (Manual) Monocytes # (Manual) Eosinophils # (Manual) Basophils # (Manual) Percent Retic PT INR Fibrinogen 491 H D-Dimer ABG pH POC ABG pCO2 POC ABG pO2 ABG pO2 ABG HCO3 ABG O2 Saturation ABG Base Excess ABG Hemoglobin ABG Oxyhemoglobin ABG Sodium ABG Potassium ABG Chloride ABG Glucose Oxyhemoglobin Carboxyhemoglobin Sodium Potassium Chloride Carbon Dioxide BUN Creatinine Glucose POC Glucose 178 H Hemoglobin A1c Calcium Phosphorus Magnesium AST ALT Alkaline Phosphatase Lactate Dehydrogenase 509 H C-Reactive Protein Total Protein Albumin Triglycerides Arterial Blood Glucose Arterial Blood Ionized Calcium Urine WBC (Auto) U Epithel Cells (Auto) Urine Creatinine Random Vancomycin Heparin-induced Plt Ab Coronavirus (PCR) Crossmatch 03/31/21 03/31/21 03/31/21 12:30 17:40 21:00 WBC RBC Hgb Hct MCH MCHC RDW Plt Count Lymph % (Auto) [place] # (Auto) Eos # (Auto) Seg Neutrophils % Lymphocytes % (Manual) Eosinophils % (Manual) Basophils % (Manual) Nucleated RBC % Seg Neutrophils # Seg Neutrophils # Man Lymphocytes # (Manual) Monocytes # (Manual) Eosinophils # (Manual) Basophils # (Manual) Percent Retic PT INR Fibrinogen D-Dimer ABG pH 7.235 L 7.216 L POC ABG pCO2 POC ABG pO2 ABG pO2 76.8 L 113.9 H ABG HCO3 ABG O2 Saturation 93.2 L ABG Base Excess -5.3 L -7.3 L ABG Hemoglobin 6.3 L 8.0 L ABG Oxyhemoglobin ABG Sodium ABG Potassium ABG Chloride ABG Glucose Oxyhemoglobin 91.1 L Carboxyhemoglobin Sodium Potassium Chloride Carbon Dioxide BUN Creatinine Glucose POC Glucose 245 H Hemoglobin A1c Calcium Phosphorus Magnesium AST ALT Alkaline Phosphatase Lactate Dehydrogenase C-Reactive Protein Total Protein Albumin Triglycerides Arterial Blood Glucose Arterial Blood Ionized Calcium Urine WBC (Auto) U Epithel Cells (Auto) Urine Creatinine Random Vancomycin Heparin-induced Plt Ab Coronavirus (PCR) Crossmatch 04/01/21 04/01/21 04/01/21 00:11 05:09 08:25 WBC RBC Hgb Hct MCH MCHC RDW Plt Count Lymph % (Auto) [place] # (Auto) Eos # (Auto) Seg Neutrophils % Lymphocytes % (Manual) Eosinophils % (Manual) Basophils % (Manual) Nucleated RBC % Seg Neutrophils # Seg Neutrophils # Man Lymphocytes # (Manual) Monocytes # (Manual) Eosinophils # (Manual) Basophils # (Manual) Percent Retic PT INR Fibrinogen D-Dimer ABG pH 7.225 L POC ABG pCO2 POC ABG pO2 ABG pO2 76.4 L ABG HCO3 ABG O2 Saturation 92.2 L ABG Base Excess -7.6 L ABG Hemoglobin 7.3 L ABG Oxyhemoglobin ABG Sodium ABG Potassium ABG Chloride ABG Glucose Oxyhemoglobin 90.2 L Carboxyhemoglobin Sodium Potassium Chloride Carbon Dioxide BUN Creatinine Glucose POC Glucose 209 H 173 H Hemoglobin A1c Calcium Phosphorus Magnesium AST ALT Alkaline Phosphatase Lactate Dehydrogenase C-Reactive Protein Total Protein Albumin Triglycerides Arterial Blood Glucose Arterial Blood Ionized Calcium Urine WBC (Auto) U Epithel Cells (Auto) Urine Creatinine Random Vancomycin Heparin-induced Plt Ab Coronavirus (PCR) Crossmatch 04/01/21 04/01/21 04/01/21 12:01 12:05 17:55 WBC RBC Hgb Hct MCH MCHC RDW Plt Count Lymph % (Auto) [place] # (Auto) Eos # (Auto) Seg Neutrophils % Lymphocytes % (Manual) Eosinophils % (Manual) Basophils % (Manual) Nucleated RBC % Seg Neutrophils # Seg Neutrophils # Man Lymphocytes # (Manual) Monocytes # (Manual) Eosinophils # (Manual) Basophils # (Manual) Percent Retic PT INR Fibrinogen D-Dimer ABG pH POC ABG pCO2 POC ABG pO2 ABG pO2 ABG HCO3 ABG O2 Saturation ABG Base Excess ABG Hemoglobin ABG Oxyhemoglobin ABG Sodium ABG Potassium ABG Chloride ABG Glucose Oxyhemoglobin Carboxyhemoglobin Sodium Potassium 5.9 H Chloride Carbon Dioxide BUN Creatinine Glucose POC Glucose 202 H 217 H Hemoglobin A1c Calcium Phosphorus Magnesium AST ALT Alkaline Phosphatase Lactate Dehydrogenase C-Reactive Protein Total Protein Albumin Triglycerides Arterial Blood Glucose Arterial Blood Ionized Calcium Urine WBC (Auto) U Epithel Cells (Auto) Urine Creatinine Random Vancomycin Heparin-induced Plt Ab Coronavirus (PCR) Crossmatch 04/01/21 04/01/21 04/01/21 Unknown Unknown 23:59 WBC 27.2 H RBC 3.08 L Hgb 8.4 L Hct 26.0 L MCH 27 L MCHC RDW 18.5 H Plt Count Lymph % (Auto) [place] # (Auto) Eos # (Auto) Seg Neutrophils % Lymphocytes % (Manual) Eosinophils % (Manual) Basophils % (Manual) Nucleated RBC % Seg Neutrophils # Seg Neutrophils # Man Lymphocytes # (Manual) Monocytes # (Manual) Eosinophils # (Manual) Basophils # (Manual) Percent Retic PT INR Fibrinogen D-Dimer ABG pH POC ABG pCO2 POC ABG pO2 ABG pO2 ABG HCO3 ABG O2 Saturation ABG Base Excess ABG Hemoglobin ABG Oxyhemoglobin ABG Sodium ABG Potassium ABG Chloride ABG Glucose Oxyhemoglobin Carboxyhemoglobin Sodium 132 L Potassium 6.6 H* D Chloride 91.3 L Carbon Dioxide 17 L BUN 104 H Creatinine 9.3 H Glucose 199 H POC Glucose 172 H Hemoglobin A1c Calcium 8.3 L Phosphorus Magnesium AST 236 H ALT 93 H Alkaline Phosphatase 191 H Lactate Dehydrogenase C-Reactive Protein Total Protein Albumin 2.4 L Triglycerides Arterial Blood Glucose Arterial Blood Ionized Calcium Urine WBC (Auto) U Epithel Cells (Auto) Urine Creatinine Random Vancomycin Heparin-induced Plt Ab Coronavirus (PCR) Crossmatch 04/02/21 04/02/21 04/02/21 04:00 04:00 05:00 WBC 31.0 H RBC 2.93 L Hgb 8.0 L Hct 24.7 L MCH 27 L MCHC RDW 19.2 H Plt Count 131 L Lymph % (Auto) [place] # (Auto) Eos # (Auto) Seg Neutrophils % Lymphocytes % (Manual) Eosinophils % (Manual) Basophils % (Manual) Nucleated RBC % Seg Neutrophils # Seg Neutrophils # Man Lymphocytes # (Manual) Monocytes # (Manual) Eosinophils # (Manual) Basophils # (Manual) Percent Retic PT 16.0 H INR 1.16 H Fibrinogen D-Dimer ABG pH POC ABG pCO2 POC ABG pO2 ABG pO2 ABG HCO3 ABG O2 Saturation ABG Base Excess ABG Hemoglobin ABG Oxyhemoglobin ABG Sodium ABG Potassium ABG Chloride ABG Glucose Oxyhemoglobin Carboxyhemoglobin Sodium 135 L Potassium 5.3 H Chloride 96.1 L Carbon Dioxide 18 L BUN 80 H Creatinine 6.8 H Glucose 174 H POC Glucose Hemoglobin A1c Calcium 7.7 L Phosphorus Magnesium AST 106 H ALT 60 H Alkaline Phosphatase Lactate Dehydrogenase C-Reactive Protein Total Protein 5.9 L Albumin 3.5 L Triglycerides 579 H Arterial Blood Glucose Arterial Blood Ionized Calcium Urine WBC (Auto) U Epithel Cells (Auto) Urine Creatinine Random Vancomycin Heparin-induced Plt Ab Coronavirus (PCR) Crossmatch 04/02/21 04/02/21 04/02/21 05:09 08:55 11:06 WBC RBC Hgb Hct MCH MCHC RDW Plt Count Lymph % (Auto) [place] # (Auto) Eos # (Auto) Seg Neutrophils % Lymphocytes % (Manual) Eosinophils % (Manual) Basophils % (Manual) Nucleated RBC % Seg Neutrophils # Seg Neutrophils # Man Lymphocytes # (Manual) Monocytes # (Manual) Eosinophils # (Manual) Basophils # (Manual) Percent Retic PT INR Fibrinogen D-Dimer ABG pH 7.188 L POC ABG pCO2 58.3 H POC ABG pO2 132.8 H ABG pO2 ABG HCO3 ABG O2 Saturation ABG Base Excess ABG Hemoglobin 8.4 L ABG Oxyhemoglobin ABG Sodium ABG Potassium 5.0 H ABG Chloride 97.0 L ABG Glucose 156 H Oxyhemoglobin Carboxyhemoglobin 0.4 L Sodium Potassium Chloride Carbon Dioxide BUN Creatinine Glucose POC Glucose 148 H 167 H Hemoglobin A1c Calcium Phosphorus Magnesium AST ALT Alkaline Phosphatase Lactate Dehydrogenase C-Reactive Protein Total Protein Albumin Triglycerides Arterial Blood Glucose 156 H Arterial Blood Ionized Calcium 4.2 L Urine WBC (Auto) U Epithel Cells (Auto) Urine Creatinine Random Vancomycin Heparin-induced Plt Ab Coronavirus (PCR) Crossmatch 04/02/21 04/02/21 04/03/21 17:57 20:40 00:28 WBC RBC Hgb Hct MCH MCHC RDW Plt Count Lymph % (Auto) [place] # (Auto) Eos # (Auto) Seg Neutrophils % Lymphocytes % (Manual) Eosinophils % (Manual) Basophils % (Manual) Nucleated RBC % Seg Neutrophils # Seg Neutrophils # Man Lymphocytes # (Manual) Monocytes # (Manual) Eosinophils # (Manual) Basophils # (Manual) Percent Retic PT INR Fibrinogen D-Dimer ABG pH POC ABG pCO2 POC ABG pO2 ABG pO2 111.9 H ABG HCO3 18.9 L ABG O2 Saturation ABG Base Excess -9.9 L ABG Hemoglobin ABG Oxyhemoglobin ABG Sodium ABG Potassium ABG Chloride ABG Glucose Oxyhemoglobin Carboxyhemoglobin Sodium Potassium Chloride Carbon Dioxide BUN Creatinine Glucose POC Glucose 205 H 217 H Hemoglobin A1c Calcium Phosphorus Magnesium AST ALT Alkaline Phosphatase Lactate Dehydrogenase C-Reactive Protein Total Protein Albumin Triglycerides Arterial Blood Glucose Arterial Blood Ionized Calcium Urine WBC (Auto) U Epithel Cells (Auto) Urine Creatinine Random Vancomycin Heparin-induced Plt Ab Coronavirus (PCR) Crossmatch 04/03/21 04/03/21 04/03/21 03:39 04:30 04:30 WBC 31.1 H RBC 2.78 L Hgb 8.0 L Hct 24.0 L MCH MCHC RDW 19.0 H Plt Count Lymph % (Auto) [place] # (Auto) Eos # (Auto) Seg Neutrophils % Lymphocytes % (Manual) Eosinophils % (Manual) 27.0 H Basophils % (Manual) 2.0 H Nucleated RBC % Seg Neutrophils # Seg Neutrophils # Man 13.7 H Lymphocytes # (Manual) 8.4 H Monocytes # (Manual) Eosinophils # (Manual) 8.4 H Basophils # (Manual) 0.6 H Percent Retic PT INR Fibrinogen D-Dimer ABG pH POC ABG pCO2 POC ABG pO2 ABG pO2 ABG HCO3 ABG O2 Saturation ABG Base Excess ABG Hemoglobin ABG Oxyhemoglobin ABG Sodium ABG Potassium ABG Chloride ABG Glucose Oxyhemoglobin Carboxyhemoglobin Sodium 132 L Potassium 5.8 H Chloride 94.5 L Carbon Dioxide 16 L BUN 97 H Creatinine 7.7 H Glucose 230 H POC Glucose 201 H Hemoglobin A1c Calcium 7.6 L Phosphorus Magnesium AST 47 H ALT Alkaline Phosphatase 146 H Lactate Dehydrogenase C-Reactive Protein Total Protein 5.2 L Albumin 3.4 L Triglycerides Arterial Blood Glucose Arterial Blood Ionized Calcium Urine WBC (Auto) U Epithel Cells (Auto) Urine Creatinine Random Vancomycin Heparin-induced Plt Ab Coronavirus (PCR) Crossmatch 04/03/21 04/03/21 04/03/21 04:30 08:31 11:29 WBC RBC Hgb Hct MCH MCHC RDW Plt Count Lymph % (Auto) [place] # (Auto) Eos # (Auto) Seg Neutrophils % Lymphocytes % (Manual) Eosinophils % (Manual) Basophils % (Manual) Nucleated RBC % Seg Neutrophils # Seg Neutrophils # Man Lymphocytes # (Manual) Monocytes # (Manual) Eosinophils # (Manual) Basophils # (Manual) Percent Retic PT INR Fibrinogen D-Dimer ABG pH 7.195 L* POC ABG pCO2 POC ABG pO2 ABG pO2 102.6 H ABG HCO3 ABG O2 Saturation ABG Base Excess -7.2 L ABG Hemoglobin 8.0 L ABG Oxyhemoglobin ABG Sodium ABG Potassium ABG Chloride ABG Glucose Oxyhemoglobin 94.7 L Carboxyhemoglobin Sodium Potassium Chloride Carbon Dioxide BUN Creatinine Glucose POC Glucose 230 H Hemoglobin A1c Calcium Phosphorus 10.30 H Magnesium AST ALT Alkaline Phosphatase Lactate Dehydrogenase C-Reactive Protein Total Protein Albumin Triglycerides Arterial Blood Glucose Arterial Blood Ionized Calcium Urine WBC (Auto) U Epithel Cells (Auto) Urine Creatinine Random Vancomycin Heparin-induced Plt Ab Coronavirus (PCR) Crossmatch 04/03/21 04/03/21 04/04/21 16:53 20:45 05:00 WBC 28.8 H RBC 2.64 L Hgb 8.7 L Hct 22.2 L MCH 33 H MCHC 39 H* RDW 18.6 H Plt Count Lymph % (Auto) [place] # (Auto) Eos # (Auto) Seg Neutrophils % Lymphocytes % (Manual) Eosinophils % (Manual) Basophils % (Manual) Nucleated RBC % Seg Neutrophils # Seg Neutrophils # Man Lymphocytes # (Manual) Monocytes # (Manual) Eosinophils # (Manual) Basophils # (Manual) Percent Retic PT INR Fibrinogen D-Dimer ABG pH POC ABG pCO2 POC ABG pO2 ABG pO2 ABG HCO3 ABG O2 Saturation ABG Base Excess ABG Hemoglobin ABG Oxyhemoglobin ABG Sodium ABG Potassium ABG Chloride ABG Glucose Oxyhemoglobin 94.8 L Carboxyhemoglobin Sodium Potassium Chloride Carbon Dioxide BUN Creatinine Glucose POC Glucose 227 H Hemoglobin A1c Calcium Phosphorus Magnesium AST ALT Alkaline Phosphatase Lactate Dehydrogenase C-Reactive Protein Total Protein Albumin Triglycerides Arterial Blood Glucose Arterial Blood Ionized Calcium Urine WBC (Auto) U Epithel Cells (Auto) Urine Creatinine Random Vancomycin Heparin-induced Plt Ab Coronavirus (PCR) Crossmatch 04/04/21 04/04/21 04/04/21 05:29 07:55 09:20 WBC RBC Hgb Hct MCH MCHC RDW Plt Count Lymph % (Auto) [place] # (Auto) Eos # (Auto) Seg Neutrophils % Lymphocytes % (Manual) Eosinophils % (Manual) Basophils % (Manual) Nucleated RBC % Seg Neutrophils # Seg Neutrophils # Man Lymphocytes # (Manual) Monocytes # (Manual) Eosinophils # (Manual) Basophils # (Manual) Percent Retic PT INR Fibrinogen D-Dimer ABG pH POC ABG pCO2 POC ABG pO2 ABG pO2 ABG HCO3 ABG O2 Saturation ABG Base Excess ABG Hemoglobin ABG Oxyhemoglobin ABG Sodium ABG Potassium ABG Chloride ABG Glucose Oxyhemoglobin Carboxyhemoglobin Sodium 133 L Potassium Chloride 91.0 L Carbon Dioxide 20 L BUN 75 H Creatinine 4.7 H Glucose 184 H POC Glucose 133 H Hemoglobin A1c Calcium 7.3 L Phosphorus Magnesium AST < 5 L ALT < 5 L Alkaline Phosphatase 200 H Lactate Dehydrogenase C-Reactive Protein Total Protein 5.6 L Albumin 2.9 L Triglycerides Arterial Blood Glucose Arterial Blood Ionized Calcium Urine WBC (Auto) U Epithel Cells (Auto) Urine Creatinine Random Vancomycin Heparin-induced Plt Ab Coronavirus (PCR) Crossmatch See Detail 04/04/21 04/04/21 04/04/21 12:01 14:06 17:05 WBC RBC Hgb Hct MCH MCHC RDW Plt Count Lymph % (Auto) [place] # (Auto) Eos # (Auto) Seg Neutrophils % Lymphocytes % (Manual) Eosinophils % (Manual) Basophils % (Manual) Nucleated RBC % Seg Neutrophils # Seg Neutrophils # Man Lymphocytes # (Manual) Monocytes # (Manual) Eosinophils # (Manual) Basophils # (Manual) Percent Retic PT INR Fibrinogen D-Dimer ABG pH 7.162 L* POC ABG pCO2 POC ABG pO2 ABG pO2 91.3 H ABG HCO3 ABG O2 Saturation 94.8 L ABG Base Excess -4.0 L ABG Hemoglobin 7.6 L ABG Oxyhemoglobin ABG Sodium ABG Potassium ABG Chloride ABG Glucose Oxyhemoglobin 92.4 L Carboxyhemoglobin Sodium Potassium Chloride Carbon Dioxide BUN Creatinine Glucose POC Glucose 199 H 166 H Hemoglobin A1c Calcium Phosphorus Magnesium AST ALT Alkaline Phosphatase Lactate Dehydrogenase C-Reactive Protein Total Protein Albumin Triglycerides Arterial Blood Glucose Arterial Blood Ionized Calcium Urine WBC (Auto) U Epithel Cells (Auto) Urine Creatinine Random Vancomycin Heparin-induced Plt Ab Coronavirus (PCR) Crossmatch 04/04/21 04/04/21 04/05/21 21:14 23:30 05:20 WBC RBC Hgb Hct MCH MCHC RDW Plt Count Lymph % (Auto) [place] # (Auto) Eos # (Auto) Seg Neutrophils % Lymphocytes % (Manual) Eosinophils % (Manual) Basophils % (Manual) Nucleated RBC % Seg Neutrophils # Seg Neutrophils # Man Lymphocytes # (Manual) Monocytes # (Manual) Eosinophils # (Manual) Basophils # (Manual) Percent Retic PT INR Fibrinogen D-Dimer ABG pH 7.257 L POC ABG pCO2 POC ABG pO2 ABG pO2 73.8 L ABG HCO3 ABG O2 Saturation 91.6 L ABG Base Excess -2.7 L ABG Hemoglobin 8.6 L ABG Oxyhemoglobin ABG Sodium ABG Potassium ABG Chloride ABG Glucose Oxyhemoglobin 89.1 L Carboxyhemoglobin Sodium 131 L Potassium Chloride 91.2 L Carbon Dioxide 17 L BUN 85 H Creatinine 5.1 H Glucose 183 H POC Glucose 158 H Hemoglobin A1c Calcium 7.4 L Phosphorus Magnesium AST ALT Alkaline Phosphatase 190 H Lactate Dehydrogenase 394 H C-Reactive Protein Total Protein 5.8 L Albumin 2.7 L Triglycerides Arterial Blood Glucose Arterial Blood Ionized Calcium Urine WBC (Auto) U Epithel Cells (Auto) Urine Creatinine Random Vancomycin Heparin-induced Plt Ab Coronavirus (PCR) Crossmatch 04/05/21 04/05/21 04/05/21 05:20 05:20 05:24 WBC 30.8 H RBC 2.83 L Hgb 8.4 L Hct 24.4 L MCH MCHC 35 H RDW 18.9 H Plt Count Lymph % (Auto) [place] # (Auto) Eos # (Auto) Seg Neutrophils % Lymphocytes % (Manual) Eosinophils % (Manual) Basophils % (Manual) Nucleated RBC % Seg Neutrophils # Seg Neutrophils # Man Lymphocytes # (Manual) Monocytes # (Manual) Eosinophils # (Manual) Basophils # (Manual) Percent Retic PT INR Fibrinogen D-Dimer ABG pH POC ABG pCO2 POC ABG pO2 ABG pO2 ABG HCO3 ABG O2 Saturation ABG Base Excess ABG Hemoglobin ABG Oxyhemoglobin ABG Sodium ABG Potassium ABG Chloride ABG Glucose Oxyhemoglobin Carboxyhemoglobin Sodium Potassium Chloride Carbon Dioxide BUN Creatinine Glucose POC Glucose 162 H Hemoglobin A1c Calcium Phosphorus 9.40 H Magnesium AST ALT Alkaline Phosphatase Lactate Dehydrogenase C-Reactive Protein Total Protein Albumin Triglycerides Arterial Blood Glucose Arterial Blood Ionized Calcium Urine WBC (Auto) U Epithel Cells (Auto) Urine Creatinine Random Vancomycin Heparin-induced Plt Ab Coronavirus (PCR) Crossmatch 04/05/21 04/05/21 04/05/21 11:31 12:23 21:40 WBC RBC Hgb Hct MCH MCHC RDW Plt Count Lymph % (Auto) [place] # (Auto) Eos # (Auto) Seg Neutrophils % Lymphocytes % (Manual) Eosinophils % (Manual) Basophils % (Manual) Nucleated RBC % Seg Neutrophils # Seg Neutrophils # Man Lymphocytes # (Manual) Monocytes # (Manual) Eosinophils # (Manual) Basophils # (Manual) Percent Retic PT INR Fibrinogen D-Dimer ABG pH 7.325 L POC ABG pCO2 POC ABG pO2 ABG pO2 65.6 L ABG HCO3 ABG O2 Saturation 91.2 L ABG Base Excess ABG Hemoglobin 6.7 L ABG Oxyhemoglobin ABG Sodium ABG Potassium ABG Chloride ABG Glucose Oxyhemoglobin 89.0 L Carboxyhemoglobin Sodium Potassium Chloride Carbon Dioxide BUN Creatinine Glucose POC Glucose 196 H 190 H Hemoglobin A1c Calcium Phosphorus Magnesium AST ALT Alkaline Phosphatase Lactate Dehydrogenase C-Reactive Protein Total Protein Albumin Triglycerides Arterial Blood Glucose Arterial Blood Ionized Calcium Urine WBC (Auto) U Epithel Cells (Auto) Urine Creatinine Random Vancomycin Heparin-induced Plt Ab Coronavirus (PCR) Crossmatch 04/05/21 04/06/21 04/06/21 23:53 05:35 06:00 WBC RBC Hgb Hct MCH MCHC RDW Plt Count Lymph % (Auto) [place] # (Auto) Eos # (Auto) Seg Neutrophils % Lymphocytes % (Manual) Eosinophils % (Manual) Basophils % (Manual) Nucleated RBC % Seg Neutrophils # Seg Neutrophils # Man Lymphocytes # (Manual) Monocytes # (Manual) Eosinophils # (Manual) Basophils # (Manual) Percent Retic PT INR Fibrinogen D-Dimer ABG pH POC ABG pCO2 POC ABG pO2 ABG pO2 ABG HCO3 ABG O2 Saturation ABG Base Excess ABG Hemoglobin ABG Oxyhemoglobin ABG Sodium ABG Potassium ABG Chloride ABG Glucose Oxyhemoglobin Carboxyhemoglobin Sodium 132 L Potassium Chloride 90.7 L Carbon Dioxide 21 L BUN 74 H Creatinine 4.3 H Glucose 156 H POC Glucose 192 H 139 H Hemoglobin A1c Calcium 7.9 L Phosphorus 6.90 H D Magnesium AST < 5 L ALT < 5 L Alkaline Phosphatase 185 H Lactate Dehydrogenase C-Reactive Protein Total Protein 5.7 L Albumin 2.5 L Triglycerides Arterial Blood Glucose Arterial Blood Ionized Calcium Urine WBC (Auto) U Epithel Cells (Auto) Urine Creatinine Random Vancomycin Heparin-induced Plt Ab Coronavirus (PCR) Crossmatch 04/06/21 04/06/21 04/06/21 06:00 11:27 18:01 WBC 26.7 H RBC 2.39 L Hgb 6.9 L Hct 20.1 L MCH MCHC RDW 18.7 H Plt Count Lymph % (Auto) [place] # (Auto) Eos # (Auto) Seg Neutrophils % Lymphocytes % (Manual) Eosinophils % (Manual) Basophils % (Manual) Nucleated RBC % Seg Neutrophils # Seg Neutrophils # Man Lymphocytes # (Manual) Monocytes # (Manual) Eosinophils # (Manual) Basophils # (Manual) Percent Retic PT INR Fibrinogen D-Dimer ABG pH POC ABG pCO2 POC ABG pO2 ABG pO2 ABG HCO3 ABG O2 Saturation ABG Base Excess ABG Hemoglobin ABG Oxyhemoglobin ABG Sodium ABG Potassium ABG Chloride ABG Glucose Oxyhemoglobin Carboxyhemoglobin Sodium Potassium Chloride Carbon Dioxide BUN Creatinine Glucose POC Glucose 166 H 159 H Hemoglobin A1c Calcium Phosphorus Magnesium AST ALT Alkaline Phosphatase Lactate Dehydrogenase C-Reactive Protein Total Protein Albumin Triglycerides Arterial Blood Glucose Arterial Blood Ionized Calcium Urine WBC (Auto) U Epithel Cells (Auto) Urine Creatinine Random Vancomycin Heparin-induced Plt Ab Coronavirus (PCR) Crossmatch 04/06/21 04/06/21 04/06/21 20:50 23:43 Unknown WBC RBC Hgb Hct MCH MCHC RDW Plt Count Lymph % (Auto) [place] # (Auto) Eos # (Auto) Seg Neutrophils % Lymphocytes % (Manual) Eosinophils % (Manual) Basophils % (Manual) Nucleated RBC % Seg Neutrophils # Seg Neutrophils # Man Lymphocytes # (Manual) Monocytes # (Manual) Eosinophils # (Manual) Basophils # (Manual) Percent Retic PT INR Fibrinogen D-Dimer ABG pH 7.303 L POC ABG pCO2 POC ABG pO2 67.9 L ABG pO2 ABG HCO3 ABG O2 Saturation ABG Base Excess ABG Hemoglobin 7.6 L ABG Oxyhemoglobin 90.2 L ABG Sodium 128.6 L ABG Potassium ABG Chloride 97.0 L ABG Glucose 154 H Oxyhemoglobin Carboxyhemoglobin Sodium Potassium Chloride Carbon Dioxide BUN Creatinine Glucose POC Glucose 137 H Hemoglobin A1c Calcium Phosphorus Magnesium AST ALT Alkaline Phosphatase Lactate Dehydrogenase C-Reactive Protein Total Protein Albumin Triglycerides Arterial Blood Glucose 154 H Arterial Blood Ionized Calcium Urine WBC (Auto) 148.0 H U Epithel Cells (Auto) 102.0 H Urine Creatinine Random Vancomycin Heparin-induced Plt Ab Coronavirus (PCR) Crossmatch 04/07/21 04/07/21 04/07/21 03:50 03:50 03:50 WBC 26.7 H RBC 2.66 L Hgb 7.6 L Hct 23.2 L MCH MCHC RDW 18.5 H Plt Count Lymph % (Auto) [place] # (Auto) Eos # (Auto) Seg Neutrophils % Lymphocytes % (Manual) 10.0 L Eosinophils % (Manual) 19.0 H Basophils % (Manual) Nucleated RBC % 2.0 H Seg Neutrophils # Seg Neutrophils # Man 17.9 H Lymphocytes # (Manual) Monocytes # (Manual) 1.1 H Eosinophils # (Manual) 5.1 H Basophils # (Manual) Percent Retic PT INR Fibrinogen D-Dimer 2178 H ABG pH POC ABG pCO2 POC ABG pO2 ABG pO2 ABG HCO3 ABG O2 Saturation ABG Base Excess ABG Hemoglobin ABG Oxyhemoglobin ABG Sodium ABG Potassium ABG Chloride ABG Glucose Oxyhemoglobin Carboxyhemoglobin Sodium 130 L Potassium Chloride 91.1 L Carbon Dioxide 19 L BUN 92 H Creatinine 4.2 H Glucose 213 H POC Glucose Hemoglobin A1c Calcium 7.8 L Phosphorus Magnesium AST ALT Alkaline Phosphatase Lactate Dehydrogenase C-Reactive Protein Total Protein Albumin Triglycerides Arterial Blood Glucose Arterial Blood Ionized Calcium Urine WBC (Auto) U Epithel Cells (Auto) Urine Creatinine Random Vancomycin Heparin-induced Plt Ab Coronavirus (PCR) Crossmatch 04/07/21 04/07/21 04/07/21 04:00 05:42 11:10 WBC RBC Hgb Hct MCH MCHC RDW Plt Count Lymph % (Auto) [place] # (Auto) Eos # (Auto) Seg Neutrophils % Lymphocytes % (Manual) Eosinophils % (Manual) Basophils % (Manual) Nucleated RBC % Seg Neutrophils # Seg Neutrophils # Man Lymphocytes # (Manual) Monocytes # (Manual) Eosinophils # (Manual) Basophils # (Manual) Percent Retic PT INR Fibrinogen D-Dimer ABG pH POC ABG pCO2 POC ABG pO2 ABG pO2 ABG HCO3 ABG O2 Saturation ABG Base Excess ABG Hemoglobin ABG Oxyhemoglobin ABG Sodium ABG Potassium ABG Chloride ABG Glucose Oxyhemoglobin Carboxyhemoglobin Sodium 129 L Potassium 5.1 H Chloride 89.6 L Carbon Dioxide 18 L BUN 94 H Creatinine 4.2 H Glucose 213 H POC Glucose 177 H 136 H Hemoglobin A1c Calcium 7.9 L Phosphorus Magnesium AST ALT Alkaline Phosphatase 167 H Lactate Dehydrogenase C-Reactive Protein Total Protein Albumin 2.8 L Triglycerides Arterial Blood Glucose Arterial Blood Ionized Calcium Urine WBC (Auto) U Epithel Cells (Auto) Urine Creatinine Random Vancomycin Heparin-induced Plt Ab Coronavirus (PCR) Crossmatch 04/07/21 04/07/21 04/08/21 16:19 21:30 02:32 WBC RBC Hgb Hct MCH MCHC RDW Plt Count Lymph % (Auto) [place] # (Auto) Eos # (Auto) Seg Neutrophils % Lymphocytes % (Manual) Eosinophils % (Manual) Basophils % (Manual) Nucleated RBC % Seg Neutrophils # Seg Neutrophils # Man Lymphocytes # (Manual) Monocytes # (Manual) Eosinophils # (Manual) Basophils # (Manual) Percent Retic PT INR Fibrinogen D-Dimer ABG pH 7.209 L POC ABG pCO2 64.8 H POC ABG pO2 ABG pO2 ABG HCO3 ABG O2 Saturation ABG Base Excess ABG Hemoglobin 7.9 L ABG Oxyhemoglobin 93.8 L ABG Sodium 128.8 L ABG Potassium 4.6 H ABG Chloride 97.0 L ABG Glucose 170 H Oxyhemoglobin Carboxyhemoglobin 1.6 H Sodium Potassium Chloride Carbon Dioxide BUN Creatinine Glucose POC Glucose 155 H 141 H Hemoglobin A1c Calcium Phosphorus Magnesium AST ALT Alkaline Phosphatase Lactate Dehydrogenase C-Reactive Protein Total Protein Albumin Triglycerides Arterial Blood Glucose 170 H Arterial Blood Ionized Calcium 4.2 L Urine WBC (Auto) U Epithel Cells (Auto) Urine Creatinine Random Vancomycin Heparin-induced Plt Ab Coronavirus (PCR) Crossmatch 04/08/21 04/08/21 04/08/21 04:00 04:40 04:40 WBC 23.7 H RBC 2.51 L Hgb 6.9 L Hct 22.1 L MCH 27 L MCHC RDW 18.4 H Plt Count Lymph % (Auto) [place] # (Auto) Eos # (Auto) Seg Neutrophils % Lymphocytes % (Manual) Eosinophils % (Manual) Basophils % (Manual) Nucleated RBC % Seg Neutrophils # Seg Neutrophils # Man Lymphocytes # (Manual) Monocytes # (Manual) Eosinophils # (Manual) Basophils # (Manual) Percent Retic PT INR Fibrinogen D-Dimer 2696.79 H ABG pH POC ABG pCO2 POC ABG pO2 ABG pO2 ABG HCO3 ABG O2 Saturation ABG Base Excess ABG Hemoglobin ABG Oxyhemoglobin ABG Sodium ABG Potassium ABG Chloride ABG Glucose Oxyhemoglobin Carboxyhemoglobin Sodium 133 L Potassium 5.5 H Chloride 93.5 L Carbon Dioxide BUN 78 H Creatinine 3.5 H Glucose 171 H POC Glucose Hemoglobin A1c Calcium 8.1 L Phosphorus 9.30 H Magnesium AST ALT Alkaline Phosphatase Lactate Dehydrogenase C-Reactive Protein 26.10 H Total Protein Albumin Triglycerides 487 H Arterial Blood Glucose Arterial Blood Ionized Calcium Urine WBC (Auto) U Epithel Cells (Auto) Urine Creatinine Random Vancomycin Heparin-induced Plt Ab Coronavirus (PCR) Crossmatch 04/08/21 04/08/21 04/08/21 09:55 11:37 13:55 WBC RBC Hgb Hct MCH MCHC RDW Plt Count Lymph % (Auto) [place] # (Auto) Eos # (Auto) Seg Neutrophils % Lymphocytes % (Manual) Eosinophils % (Manual) Basophils % (Manual) Nucleated RBC % Seg Neutrophils # Seg Neutrophils # Man Lymphocytes # (Manual) Monocytes # (Manual) Eosinophils # (Manual) Basophils # (Manual) Percent Retic PT INR Fibrinogen D-Dimer ABG pH 7.114 L* POC ABG pCO2 POC ABG pO2 ABG pO2 75.9 L ABG HCO3 26.2 H ABG O2 Saturation 90.6 L ABG Base Excess -3.6 L ABG Hemoglobin 8.2 L ABG Oxyhemoglobin ABG Sodium ABG Potassium ABG Chloride ABG Glucose Oxyhemoglobin 88.0 L Carboxyhemoglobin Sodium Potassium Chloride Carbon Dioxide BUN Creatinine Glucose POC Glucose 156 H Hemoglobin A1c Calcium Phosphorus Magnesium AST ALT Alkaline Phosphatase Lactate Dehydrogenase C-Reactive Protein Total Protein Albumin Triglycerides Arterial Blood Glucose Arterial Blood Ionized Calcium Urine WBC (Auto) U Epithel Cells (Auto) Urine Creatinine Random Vancomycin Heparin-induced Plt Ab Coronavirus (PCR) Crossmatch See Detail 04/08/21 04/08/21 04/08/21 17:04 20:53 23:56 WBC RBC Hgb Hct MCH MCHC RDW Plt Count Lymph % (Auto) [place] # (Auto) Eos # (Auto) Seg Neutrophils % Lymphocytes % (Manual) Eosinophils % (Manual) Basophils % (Manual) Nucleated RBC % Seg Neutrophils # Seg Neutrophils # Man Lymphocytes # (Manual) Monocytes # (Manual) Eosinophils # (Manual) Basophils # (Manual) Percent Retic PT INR Fibrinogen D-Dimer ABG pH 7.207 L POC ABG pCO2 49.8 H POC ABG pO2 ABG pO2 ABG HCO3 ABG O2 Saturation ABG Base Excess ABG Hemoglobin 7.6 L ABG Oxyhemoglobin ABG Sodium 127.3 L ABG Potassium 5.7 H ABG Chloride 96.0 L ABG Glucose 185 H Oxyhemoglobin Carboxyhemoglobin Sodium Potassium Chloride Carbon Dioxide BUN Creatinine Glucose POC Glucose 178 H 189 H Hemoglobin A1c Calcium Phosphorus Magnesium AST ALT Alkaline Phosphatase Lactate Dehydrogenase C-Reactive Protein Total Protein Albumin Triglycerides Arterial Blood Glucose 185 H Arterial Blood Ionized Calcium 4.3 L Urine WBC (Auto) U Epithel Cells (Auto) Urine Creatinine Random Vancomycin Heparin-induced Plt Ab Coronavirus (PCR) Crossmatch 04/09/21 04/09/21 04/09/21 04:00 04:00 05:24 WBC 21.9 H RBC 2.70 L Hgb 7.8 L Hct 24.1 L MCH MCHC RDW 18.3 H Plt Count Lymph % (Auto) [place] # (Auto) Eos # (Auto) Seg Neutrophils % Lymphocytes % (Manual) Eosinophils % (Manual) Basophils % (Manual) Nucleated RBC % Seg Neutrophils # Seg Neutrophils # Man Lymphocytes # (Manual) Monocytes # (Manual) Eosinophils # (Manual) Basophils # (Manual) Percent Retic PT INR Fibrinogen D-Dimer ABG pH POC ABG pCO2 POC ABG pO2 ABG pO2 ABG HCO3 ABG O2 Saturation ABG Base Excess ABG Hemoglobin ABG Oxyhemoglobin ABG Sodium ABG Potassium ABG Chloride ABG Glucose Oxyhemoglobin Carboxyhemoglobin Sodium 131 L Potassium 6.3 H* Chloride 93.0 L Carbon Dioxide 19 L BUN 98 H Creatinine 4.6 H Glucose 208 H POC Glucose 191 H Hemoglobin A1c Calcium 8.1 L Phosphorus Magnesium AST ALT Alkaline Phosphatase Lactate Dehydrogenase C-Reactive Protein Total Protein Albumin Triglycerides Arterial Blood Glucose Arterial Blood Ionized Calcium Urine WBC (Auto) U Epithel Cells (Auto) Urine Creatinine Random Vancomycin Heparin-induced Plt Ab Coronavirus (PCR) Crossmatch 04/09/21 04/09/21 04/09/21 12:42 16:59 21:00 WBC RBC Hgb Hct MCH MCHC RDW Plt Count Lymph % (Auto) [place] # (Auto) Eos # (Auto) Seg Neutrophils % Lymphocytes % (Manual) Eosinophils % (Manual) Basophils % (Manual) Nucleated RBC % Seg Neutrophils # Seg Neutrophils # Man Lymphocytes # (Manual) Monocytes # (Manual) Eosinophils # (Manual) Basophils # (Manual) Percent Retic PT INR Fibrinogen D-Dimer ABG pH 7.192 L POC ABG pCO2 63.4 H POC ABG pO2 ABG pO2 ABG HCO3 ABG O2 Saturation ABG Base Excess ABG Hemoglobin 8.7 L ABG Oxyhemoglobin 92.9 L ABG Sodium 135.1 L ABG Potassium ABG Chloride ABG Glucose 208 H Oxyhemoglobin Carboxyhemoglobin Sodium Potassium Chloride Carbon Dioxide BUN Creatinine Glucose POC Glucose 198 H 218 H Hemoglobin A1c Calcium Phosphorus Magnesium AST ALT Alkaline Phosphatase Lactate Dehydrogenase C-Reactive Protein Total Protein Albumin Triglycerides Arterial Blood Glucose 208 H Arterial Blood Ionized Calcium Urine WBC (Auto) U Epithel Cells (Auto) Urine Creatinine Random Vancomycin Heparin-induced Plt Ab Coronavirus (PCR) Crossmatch 04/09/21 04/10/21 04/10/21 23:31 04:45 04:45 WBC 18.0 H RBC 2.65 L Hgb 7.4 L Hct 23.3 L MCH MCHC RDW 18.5 H Plt Count Lymph % (Auto) [place] # (Auto) Eos # (Auto) Seg Neutrophils % Lymphocytes % (Manual) Eosinophils % (Manual) Basophils % (Manual) Nucleated RBC % Seg Neutrophils # Seg Neutrophils # Man Lymphocytes # (Manual) Monocytes # (Manual) Eosinophils # (Manual) Basophils # (Manual) Percent Retic PT INR Fibrinogen D-Dimer ABG pH POC ABG pCO2 POC ABG pO2 ABG pO2 ABG HCO3 ABG O2 Saturation ABG Base Excess ABG Hemoglobin ABG Oxyhemoglobin ABG Sodium ABG Potassium ABG Chloride ABG Glucose Oxyhemoglobin Carboxyhemoglobin Sodium Potassium 5.5 H Chloride Carbon Dioxide 21 L BUN 83 H Creatinine 3.4 H Glucose 211 H POC Glucose 162 H Hemoglobin A1c Calcium Phosphorus Magnesium AST ALT Alkaline Phosphatase Lactate Dehydrogenase C-Reactive Protein Total Protein Albumin Triglycerides Arterial Blood Glucose Arterial Blood Ionized Calcium Urine WBC (Auto) U Epithel Cells (Auto) Urine Creatinine Random Vancomycin Heparin-induced Plt Ab Coronavirus (PCR) Crossmatch 04/10/21 04/10/21 04/10/21 05:01 11:58 17:42 WBC RBC Hgb Hct MCH MCHC RDW Plt Count Lymph % (Auto) [place] # (Auto) Eos # (Auto) Seg Neutrophils % Lymphocytes % (Manual) Eosinophils % (Manual) Basophils % (Manual) Nucleated RBC % Seg Neutrophils # Seg Neutrophils # Man Lymphocytes # (Manual) Monocytes # (Manual) Eosinophils # (Manual) Basophils # (Manual) Percent Retic PT INR Fibrinogen D-Dimer ABG pH POC ABG pCO2 POC ABG pO2 ABG pO2 ABG HCO3 ABG O2 Saturation ABG Base Excess ABG Hemoglobin ABG Oxyhemoglobin ABG Sodium ABG Potassium ABG Chloride ABG Glucose Oxyhemoglobin Carboxyhemoglobin Sodium Potassium Chloride Carbon Dioxide BUN Creatinine Glucose POC Glucose 183 H 136 H 166 H Hemoglobin A1c Calcium Phosphorus Magnesium AST ALT Alkaline Phosphatase Lactate Dehydrogenase C-Reactive Protein Total Protein Albumin Triglycerides Arterial Blood Glucose Arterial Blood Ionized Calcium Urine WBC (Auto) U Epithel Cells (Auto) Urine Creatinine Random Vancomycin Heparin-induced Plt Ab Coronavirus (PCR) Crossmatch 04/11/21 04/11/21 04/11/21 00:02 04:15 04:15 WBC 16.3 H RBC 2.53 L Hgb 7.0 L Hct 22.6 L MCH MCHC RDW 18.4 H Plt Count Lymph % (Auto) [place] # (Auto) Eos # (Auto) Seg Neutrophils % Lymphocytes % (Manual) Eosinophils % (Manual) Basophils % (Manual) Nucleated RBC % Seg Neutrophils # Seg Neutrophils # Man Lymphocytes # (Manual) Monocytes # (Manual) Eosinophils # (Manual) Basophils # (Manual) Percent Retic PT INR Fibrinogen D-Dimer ABG pH POC ABG pCO2 POC ABG pO2 ABG pO2 ABG HCO3 ABG O2 Saturation ABG Base Excess ABG Hemoglobin ABG Oxyhemoglobin ABG Sodium ABG Potassium ABG Chloride ABG Glucose Oxyhemoglobin Carboxyhemoglobin Sodium Potassium Chloride Carbon Dioxide BUN 71 H Creatinine 3.1 H Glucose 183 H POC Glucose 155 H Hemoglobin A1c Calcium Phosphorus Magnesium AST ALT Alkaline Phosphatase Lactate Dehydrogenase C-Reactive Protein Total Protein Albumin Triglycerides 406 H Arterial Blood Glucose Arterial Blood Ionized Calcium Urine WBC (Auto) U Epithel Cells (Auto) Urine Creatinine Random Vancomycin Heparin-induced Plt Ab Coronavirus (PCR) Crossmatch 04/11/21 04/11/21 04/11/21 05:46 11:34 11:50 WBC RBC Hgb 6.7 L Hct 20.8 L MCH MCHC RDW Plt Count Lymph % (Auto) [place] # (Auto) Eos # (Auto) Seg Neutrophils % Lymphocytes % (Manual) Eosinophils % (Manual) Basophils % (Manual) Nucleated RBC % Seg Neutrophils # Seg Neutrophils # Man Lymphocytes # (Manual) Monocytes # (Manual) Eosinophils # (Manual) Basophils # (Manual) Percent Retic PT INR Fibrinogen D-Dimer ABG pH POC ABG pCO2 POC ABG pO2 ABG pO2 ABG HCO3 ABG O2 Saturation ABG Base Excess ABG Hemoglobin ABG Oxyhemoglobin ABG Sodium ABG Potassium ABG Chloride ABG Glucose Oxyhemoglobin Carboxyhemoglobin Sodium Potassium Chloride Carbon Dioxide BUN Creatinine Glucose POC Glucose 157 H 132 H Hemoglobin A1c Calcium Phosphorus Magnesium AST ALT Alkaline Phosphatase Lactate Dehydrogenase C-Reactive Protein Total Protein Albumin Triglycerides Arterial Blood Glucose Arterial Blood Ionized Calcium Urine WBC (Auto) U Epithel Cells (Auto) Urine Creatinine Random Vancomycin Heparin-induced Plt Ab Coronavirus (PCR) Crossmatch 04/11/21 04/11/21 04/11/21 13:39 17:49 17:50 WBC RBC Hgb 6.5 L Hct 21.4 L MCH MCHC RDW Plt Count Lymph % (Auto) [place] # (Auto) Eos # (Auto) Seg Neutrophils % Lymphocytes % (Manual) Eosinophils % (Manual) Basophils % (Manual) Nucleated RBC % Seg Neutrophils # Seg Neutrophils # Man Lymphocytes # (Manual) Monocytes # (Manual) Eosinophils # (Manual) Basophils # (Manual) Percent Retic PT INR Fibrinogen D-Dimer ABG pH POC ABG pCO2 POC ABG pO2 ABG pO2 ABG HCO3 ABG O2 Saturation ABG Base Excess ABG Hemoglobin ABG Oxyhemoglobin ABG Sodium ABG Potassium ABG Chloride ABG Glucose Oxyhemoglobin Carboxyhemoglobin Sodium Potassium Chloride Carbon Dioxide BUN Creatinine Glucose POC Glucose 136 H Hemoglobin A1c Calcium Phosphorus Magnesium AST ALT Alkaline Phosphatase Lactate Dehydrogenase C-Reactive Protein Total Protein Albumin Triglycerides Arterial Blood Glucose Arterial Blood Ionized Calcium Urine WBC (Auto) U Epithel Cells (Auto) Urine Creatinine Random Vancomycin Heparin-induced Plt Ab Coronavirus (PCR) Crossmatch See Detail 04/12/21 04/12/21 04/12/21 00:25 00:29 02:52 WBC RBC Hgb 7.4 L Hct 23.5 L MCH MCHC RDW Plt Count Lymph % (Auto) [place] # (Auto) Eos # (Auto) Seg Neutrophils % Lymphocytes % (Manual) Eosinophils % (Manual) Basophils % (Manual) Nucleated RBC % Seg Neutrophils # Seg Neutrophils # Man Lymphocytes # (Manual) Monocytes # (Manual) Eosinophils # (Manual) Basophils # (Manual) Percent Retic PT INR Fibrinogen D-Dimer ABG pH 7.253 L POC ABG pCO2 POC ABG pO2 ABG pO2 79.6 L ABG HCO3 ABG O2 Saturation 94.1 L ABG Base Excess -3.6 L ABG Hemoglobin 8.1 L ABG Oxyhemoglobin ABG Sodium ABG Potassium ABG Chloride ABG Glucose Oxyhemoglobin 93.6 L Carboxyhemoglobin Sodium Potassium Chloride Carbon Dioxide BUN Creatinine Glucose POC Glucose 125 H Hemoglobin A1c Calcium Phosphorus Magnesium AST ALT Alkaline Phosphatase Lactate Dehydrogenase C-Reactive Protein Total Protein Albumin Triglycerides Arterial Blood Glucose Arterial Blood Ionized Calcium Urine WBC (Auto) U Epithel Cells (Auto) Urine Creatinine Random Vancomycin Heparin-induced Plt Ab Coronavirus (PCR) Crossmatch 04/12/21 04/12/21 04/12/21 04:30 04:30 05:41 WBC 17.5 H RBC 2.68 L Hgb 7.6 L Hct 24.0 L MCH MCHC RDW 18.0 H Plt Count Lymph % (Auto) [place] # (Auto) Eos # (Auto) Seg Neutrophils % Lymphocytes % (Manual) Eosinophils % (Manual) Basophils % (Manual) Nucleated RBC % Seg Neutrophils # Seg Neutrophils # Man Lymphocytes # (Manual) Monocytes # (Manual) Eosinophils # (Manual) Basophils # (Manual) Percent Retic PT INR Fibrinogen D-Dimer ABG pH POC ABG pCO2 POC ABG pO2 ABG pO2 ABG HCO3 ABG O2 Saturation ABG Base Excess ABG Hemoglobin ABG Oxyhemoglobin ABG Sodium ABG Potassium ABG Chloride ABG Glucose Oxyhemoglobin Carboxyhemoglobin Sodium Potassium Chloride Carbon Dioxide BUN 87 H Creatinine 4.5 H Glucose 136 H POC Glucose 115 H Hemoglobin A1c Calcium Phosphorus 6.50 H Magnesium AST ALT Alkaline Phosphatase Lactate Dehydrogenase C-Reactive Protein Total Protein Albumin Triglycerides Arterial Blood Glucose Arterial Blood Ionized Calcium Urine WBC (Auto) U Epithel Cells (Auto) Urine Creatinine Random Vancomycin Heparin-induced Plt Ab Coronavirus (PCR) Crossmatch 04/12/21 04/12/21 04/13/21 11:57 17:19 00:24 WBC RBC Hgb Hct MCH MCHC RDW Plt Count Lymph % (Auto) [place] # (Auto) Eos # (Auto) Seg Neutrophils % Lymphocytes % (Manual) Eosinophils % (Manual) Basophils % (Manual) Nucleated RBC % Seg Neutrophils # Seg Neutrophils # Man Lymphocytes # (Manual) Monocytes # (Manual) Eosinophils # (Manual) Basophils # (Manual) Percent Retic PT INR Fibrinogen D-Dimer ABG pH POC ABG pCO2 POC ABG pO2 ABG pO2 ABG HCO3 ABG O2 Saturation ABG Base Excess ABG Hemoglobin ABG Oxyhemoglobin ABG Sodium ABG Potassium ABG Chloride ABG Glucose Oxyhemoglobin Carboxyhemoglobin Sodium Potassium Chloride Carbon Dioxide BUN Creatinine Glucose POC Glucose 137 H 177 H 188 H Hemoglobin A1c Calcium Phosphorus Magnesium AST ALT Alkaline Phosphatase Lactate Dehydrogenase C-Reactive Protein Total Protein Albumin Triglycerides Arterial Blood Glucose Arterial Blood Ionized Calcium Urine WBC (Auto) U Epithel Cells (Auto) Urine Creatinine Random Vancomycin Heparin-induced Plt Ab Coronavirus (PCR) Crossmatch 04/13/21 04/13/21 04/13/21 03:52 04:44 04:44 WBC 13.1 H RBC 2.57 L Hgb 7.3 L Hct 23.2 L MCH MCHC RDW 17.6 H Plt Count 73 L Lymph % (Auto) [place] # (Auto) Eos # (Auto) Seg Neutrophils % Lymphocytes % (Manual) Eosinophils % (Manual) Basophils % (Manual) Nucleated RBC % Seg Neutrophils # Seg Neutrophils # Man Lymphocytes # (Manual) Monocytes # (Manual) Eosinophils # (Manual) Basophils # (Manual) Percent Retic PT 16.0 H INR 1.16 H Fibrinogen D-Dimer ABG pH 7.195 L* POC ABG pCO2 POC ABG pO2 ABG pO2 98.9 H ABG HCO3 ABG O2 Saturation ABG Base Excess -2.9 L ABG Hemoglobin 7.4 L ABG Oxyhemoglobin ABG Sodium ABG Potassium ABG Chloride ABG Glucose Oxyhemoglobin 94.3 L Carboxyhemoglobin Sodium Potassium Chloride Carbon Dioxide BUN Creatinine Glucose POC Glucose Hemoglobin A1c Calcium Phosphorus Magnesium AST ALT Alkaline Phosphatase Lactate Dehydrogenase C-Reactive Protein Total Protein Albumin Triglycerides Arterial Blood Glucose Arterial Blood Ionized Calcium Urine WBC (Auto) U Epithel Cells (Auto) Urine Creatinine Random Vancomycin Heparin-induced Plt Ab Coronavirus (PCR) Crossmatch 04/13/21 04/13/21 04/13/21 04:44 05:26 11:32 WBC RBC Hgb Hct MCH MCHC RDW Plt Count Lymph % (Auto) [place] # (Auto) Eos # (Auto) Seg Neutrophils % Lymphocytes % (Manual) Eosinophils % (Manual) Basophils % (Manual) Nucleated RBC % Seg Neutrophils # Seg Neutrophils # Man Lymphocytes # (Manual) Monocytes # (Manual) Eosinophils # (Manual) Basophils # (Manual) Percent Retic PT INR Fibrinogen D-Dimer ABG pH POC ABG pCO2 POC ABG pO2 ABG pO2 ABG HCO3 ABG O2 Saturation ABG Base Excess ABG Hemoglobin ABG Oxyhemoglobin ABG Sodium ABG Potassium ABG Chloride ABG Glucose Oxyhemoglobin Carboxyhemoglobin Sodium Potassium Chloride Carbon Dioxide BUN 75 H Creatinine 3.8 H Glucose 183 H POC Glucose 163 H 169 H Hemoglobin A1c Calcium Phosphorus 6.80 H Magnesium AST ALT Alkaline Phosphatase Lactate Dehydrogenase C-Reactive Protein Total Protein Albumin Triglycerides Arterial Blood Glucose Arterial Blood Ionized Calcium Urine WBC (Auto) U Epithel Cells (Auto) Urine Creatinine Random Vancomycin Heparin-induced Plt Ab Coronavirus (PCR) Crossmatch 04/13/21 04/13/21 04/13/21 17:28 21:00 23:28 WBC RBC Hgb Hct MCH MCHC RDW Plt Count Lymph % (Auto) [place] # (Auto) Eos # (Auto) Seg Neutrophils % Lymphocytes % (Manual) Eosinophils % (Manual) Basophils % (Manual) Nucleated RBC % Seg Neutrophils # Seg Neutrophils # Man Lymphocytes # (Manual) Monocytes # (Manual) Eosinophils # (Manual) Basophils # (Manual) Percent Retic PT INR Fibrinogen D-Dimer ABG pH POC ABG pCO2 48.6 H POC ABG pO2 ABG pO2 ABG HCO3 ABG O2 Saturation ABG Base Excess ABG Hemoglobin 8.3 L ABG Oxyhemoglobin ABG Sodium 134.6 L ABG Potassium ABG Chloride ABG Glucose 243 H Oxyhemoglobin Carboxyhemoglobin 0.4 L Sodium Potassium Chloride Carbon Dioxide BUN Creatinine Glucose POC Glucose 174 H 207 H Hemoglobin A1c Calcium Phosphorus Magnesium AST ALT Alkaline Phosphatase Lactate Dehydrogenase C-Reactive Protein Total Protein Albumin Triglycerides Arterial Blood Glucose 243 H Arterial Blood Ionized Calcium Urine WBC (Auto) U Epithel Cells (Auto) Urine Creatinine Random Vancomycin Heparin-induced Plt Ab Coronavirus (PCR) Crossmatch 04/14/21 04/14/21 04/14/21 04:43 04:43 05:28 WBC 11.8 H RBC 2.58 L Hgb 7.5 L Hct 23.4 L MCH MCHC RDW 17.1 H Plt Count 45 L Lymph % (Auto) [place] # (Auto) Eos # (Auto) Seg Neutrophils % Lymphocytes % (Manual) Eosinophils % (Manual) Basophils % (Manual) Nucleated RBC % Seg Neutrophils # Seg Neutrophils # Man Lymphocytes # (Manual) Monocytes # (Manual) Eosinophils # (Manual) Basophils # (Manual) Percent Retic PT INR Fibrinogen D-Dimer ABG pH POC ABG pCO2 POC ABG pO2 ABG pO2 ABG HCO3 ABG O2 Saturation ABG Base Excess ABG Hemoglobin ABG Oxyhemoglobin ABG Sodium ABG Potassium ABG Chloride ABG Glucose Oxyhemoglobin Carboxyhemoglobin Sodium Potassium Chloride Carbon Dioxide BUN 74 H Creatinine 3.1 H Glucose 220 H POC Glucose 200 H Hemoglobin A1c Calcium Phosphorus Magnesium AST ALT Alkaline Phosphatase Lactate Dehydrogenase C-Reactive Protein Total Protein Albumin Triglycerides Arterial Blood Glucose Arterial Blood Ionized Calcium Urine WBC (Auto) U Epithel Cells (Auto) Urine Creatinine Random Vancomycin Heparin-induced Plt Ab Coronavirus (PCR) Crossmatch 04/14/21 04/14/21 04/14/21 09:45 11:10 16:20 WBC RBC Hgb Hct MCH MCHC RDW Plt Count Lymph % (Auto) [place] # (Auto) Eos # (Auto) Seg Neutrophils % Lymphocytes % (Manual) Eosinophils % (Manual) Basophils % (Manual) Nucleated RBC % Seg Neutrophils # Seg Neutrophils # Man Lymphocytes # (Manual) Monocytes # (Manual) Eosinophils # (Manual) Basophils # (Manual) Percent Retic PT INR Fibrinogen D-Dimer ABG pH POC ABG pCO2 POC ABG pO2 ABG pO2 ABG HCO3 ABG O2 Saturation ABG Base Excess ABG Hemoglobin ABG Oxyhemoglobin ABG Sodium ABG Potassium ABG Chloride ABG Glucose Oxyhemoglobin Carboxyhemoglobin Sodium Potassium Chloride Carbon Dioxide BUN Creatinine Glucose POC Glucose 160 H 168 H Hemoglobin A1c Calcium Phosphorus Magnesium AST ALT Alkaline Phosphatase Lactate Dehydrogenase C-Reactive Protein Total Protein Albumin Triglycerides Arterial Blood Glucose Arterial Blood Ionized Calcium Urine WBC (Auto) U Epithel Cells (Auto) Urine Creatinine Random Vancomycin Heparin-induced Plt Ab Positive H Coronavirus (PCR) Crossmatch 04/14/21 04/14/21 04/15/21 21:00 23:53 08:20 WBC RBC Hgb Hct MCH MCHC RDW Plt Count Lymph % (Auto) [place] # (Auto) Eos # (Auto) Seg Neutrophils % Lymphocytes % (Manual) Eosinophils % (Manual) Basophils % (Manual) Nucleated RBC % Seg Neutrophils # Seg Neutrophils # Man Lymphocytes # (Manual) Monocytes # (Manual) Eosinophils # (Manual) Basophils # (Manual) Percent Retic PT INR Fibrinogen D-Dimer ABG pH 7.207 L 7.305 L POC ABG pCO2 67.6 H 48.3 H POC ABG pO2 143.7 H ABG pO2 ABG HCO3 ABG O2 Saturation ABG Base Excess ABG Hemoglobin 7.6 L 7.5 L ABG Oxyhemoglobin ABG Sodium 133.8 L 134.1 L ABG Potassium ABG Chloride ABG Glucose 158 H 146 H Oxyhemoglobin Carboxyhemoglobin Sodium Potassium Chloride Carbon Dioxide BUN Creatinine Glucose POC Glucose 147 H Hemoglobin A1c Calcium Phosphorus Magnesium AST ALT Alkaline Phosphatase Lactate Dehydrogenase C-Reactive Protein Total Protein Albumin Triglycerides Arterial Blood Glucose 158 H 146 H Arterial Blood Ionized Calcium Urine WBC (Auto) U Epithel Cells (Auto) Urine Creatinine Random Vancomycin Heparin-induced Plt Ab Coronavirus (PCR) Crossmatch 04/15/21 04/15/21 04/15/21 11:10 12:10 12:10 WBC RBC Hgb Hct MCH MCHC RDW Plt Count Lymph % (Auto) [place] # (Auto) Eos # (Auto) Seg Neutrophils % Lymphocytes % (Manual) Eosinophils % (Manual) Basophils % (Manual) Nucleated RBC % Seg Neutrophils # Seg Neutrophils # Man Lymphocytes # (Manual) Monocytes # (Manual) Eosinophils # (Manual) Basophils # (Manual) Percent Retic PT INR Fibrinogen D-Dimer ABG pH POC ABG pCO2 POC ABG pO2 ABG pO2 ABG HCO3 ABG O2 Saturation ABG Base Excess ABG Hemoglobin ABG Oxyhemoglobin ABG Sodium ABG Potassium ABG Chloride ABG Glucose Oxyhemoglobin Carboxyhemoglobin Sodium Potassium Chloride Carbon Dioxide BUN Creatinine Glucose POC Glucose 161 H 166 H Hemoglobin A1c Calcium Phosphorus Magnesium AST ALT Alkaline Phosphatase Lactate Dehydrogenase C-Reactive Protein Total Protein Albumin Triglycerides Arterial Blood Glucose Arterial Blood Ionized Calcium Urine WBC (Auto) U Epithel Cells (Auto) Urine Creatinine Random Vancomycin Heparin-induced Plt Ab Coronavirus (PCR) Crossmatch See Detail 04/15/21 04/15/21 04/15/21 16:21 18:35 23:16 WBC RBC Hgb Hct MCH MCHC RDW Plt Count Lymph % (Auto) [place] # (Auto) Eos # (Auto) Seg Neutrophils % Lymphocytes % (Manual) Eosinophils % (Manual) Basophils % (Manual) Nucleated RBC % Seg Neutrophils # Seg Neutrophils # Man Lymphocytes # (Manual) Monocytes # (Manual) Eosinophils # (Manual) Basophils # (Manual) Percent Retic PT INR Fibrinogen D-Dimer ABG pH POC ABG pCO2 POC ABG pO2 ABG pO2 ABG HCO3 ABG O2 Saturation ABG Base Excess ABG Hemoglobin ABG Oxyhemoglobin ABG Sodium ABG Potassium ABG Chloride ABG Glucose Oxyhemoglobin Carboxyhemoglobin Sodium Potassium Chloride Carbon Dioxide BUN Creatinine Glucose POC Glucose 157 H 148 H Hemoglobin A1c Calcium Phosphorus Magnesium AST ALT Alkaline Phosphatase Lactate Dehydrogenase C-Reactive Protein Total Protein Albumin Triglycerides Arterial Blood Glucose Arterial Blood Ionized Calcium Urine WBC (Auto) 156.0 H U Epithel Cells (Auto) 15.0 H Urine Creatinine Random Vancomycin Heparin-induced Plt Ab Coronavirus (PCR) Crossmatch 04/15/21 04/15/21 04/15/21 Unknown Unknown Unknown WBC 11.8 H RBC 2.41 L Hgb 7.1 L Hct 22.4 L MCH MCHC RDW 17.0 H Plt Count 38 L Lymph % (Auto) [place] # (Auto) Eos # (Auto) Seg Neutrophils % Lymphocytes % (Manual) Eosinophils % (Manual) Basophils % (Manual) Nucleated RBC % Seg Neutrophils # Seg Neutrophils # Man Lymphocytes # (Manual) Monocytes # (Manual) Eosinophils # (Manual) Basophils # (Manual) Percent Retic PT 16.3 H INR 1.18 H Fibrinogen D-Dimer ABG pH POC ABG pCO2 POC ABG pO2 ABG pO2 ABG HCO3 ABG O2 Saturation ABG Base Excess ABG Hemoglobin ABG Oxyhemoglobin ABG Sodium ABG Potassium ABG Chloride ABG Glucose Oxyhemoglobin Carboxyhemoglobin Sodium Potassium Chloride Carbon Dioxide BUN 67 H Creatinine 3.3 H Glucose 155 H POC Glucose Hemoglobin A1c Calcium 8.3 L Phosphorus 5.70 H Magnesium AST 85 H ALT 63 H Alkaline Phosphatase Lactate Dehydrogenase C-Reactive Protein Total Protein Albumin 2.4 L Triglycerides Arterial Blood Glucose Arterial Blood Ionized Calcium Urine WBC (Auto) U Epithel Cells (Auto) Urine Creatinine Random Vancomycin Heparin-induced Plt Ab Coronavirus (PCR) Crossmatch 04/16/21 04/16/21 04/16/21 04:54 04:54 05:23 WBC 15.4 H RBC 2.59 L Hgb 7.7 L Hct 24.1 L MCH MCHC RDW 16.6 H Plt Count 42 L Lymph % (Auto) [place] # (Auto) Eos # (Auto) Seg Neutrophils % Lymphocytes % (Manual) Eosinophils % (Manual) Basophils % (Manual) Nucleated RBC % Seg Neutrophils # Seg Neutrophils # Man Lymphocytes # (Manual) Monocytes # (Manual) Eosinophils # (Manual) Basophils # (Manual) Percent Retic PT INR Fibrinogen D-Dimer ABG pH POC ABG pCO2 POC ABG pO2 ABG pO2 ABG HCO3 ABG O2 Saturation ABG Base Excess ABG Hemoglobin ABG Oxyhemoglobin ABG Sodium ABG Potassium ABG Chloride ABG Glucose Oxyhemoglobin Carboxyhemoglobin Sodium Potassium Chloride Carbon Dioxide BUN 82 H Creatinine 3.4 H Glucose 142 H POC Glucose 118 H Hemoglobin A1c Calcium 8.2 L Phosphorus Magnesium AST ALT Alkaline Phosphatase Lactate Dehydrogenase C-Reactive Protein Total Protein Albumin Triglycerides Arterial Blood Glucose Arterial Blood Ionized Calcium Urine WBC (Auto) U Epithel Cells (Auto) Urine Creatinine Random Vancomycin Heparin-induced Plt Ab Coronavirus (PCR) Crossmatch 04/16/21 04/16/21 04/16/21 11:06 15:50 23:36 WBC RBC Hgb Hct MCH MCHC RDW Plt Count Lymph % (Auto) [place] # (Auto) Eos # (Auto) Seg Neutrophils % Lymphocytes % (Manual) Eosinophils % (Manual) Basophils % (Manual) Nucleated RBC % Seg Neutrophils # Seg Neutrophils # Man Lymphocytes # (Manual) Monocytes # (Manual) Eosinophils # (Manual) Basophils # (Manual) Percent Retic PT INR Fibrinogen D-Dimer ABG pH 7.300 L POC ABG pCO2 49.3 H POC ABG pO2 ABG pO2 ABG HCO3 ABG O2 Saturation ABG Base Excess ABG Hemoglobin 9.5 L ABG Oxyhemoglobin ABG Sodium 133.8 L ABG Potassium 4.7 H ABG Chloride ABG Glucose 155 H Oxyhemoglobin Carboxyhemoglobin 0.1 L Sodium Potassium Chloride Carbon Dioxide BUN Creatinine Glucose POC Glucose 133 H 141 H Hemoglobin A1c Calcium Phosphorus Magnesium AST ALT Alkaline Phosphatase Lactate Dehydrogenase C-Reactive Protein Total Protein Albumin Triglycerides Arterial Blood Glucose 155 H Arterial Blood Ionized Calcium Urine WBC (Auto) U Epithel Cells (Auto) Urine Creatinine Random Vancomycin Heparin-induced Plt Ab Coronavirus (PCR) Crossmatch 04/17/21 04/17/21 04/17/21 04:10 04:42 04:42 WBC 14.1 H RBC 2.39 L Hgb 7.1 L Hct 22.3 L MCH MCHC RDW 16.8 H Plt Count 49 L Lymph % (Auto) [place] # (Auto) Eos # (Auto) Seg Neutrophils % Lymphocytes % (Manual) 10.0 L Eosinophils % (Manual) Basophils % (Manual) Nucleated RBC % Seg Neutrophils # Seg Neutrophils # Man 9.6 H Lymphocytes # (Manual) Monocytes # (Manual) Eosinophils # (Manual) Basophils # (Manual) Percent Retic PT INR Fibrinogen D-Dimer ABG pH 7.294 L POC ABG pCO2 51.9 H POC ABG pO2 ABG pO2 ABG HCO3 ABG O2 Saturation ABG Base Excess ABG Hemoglobin 7.4 L ABG Oxyhemoglobin ABG Sodium 132.3 L ABG Potassium 5.4 H ABG Chloride ABG Glucose 187 H Oxyhemoglobin Carboxyhemoglobin Sodium Potassium 5.7 H D Chloride Carbon Dioxide BUN 101 H Creatinine 3.8 H Glucose 179 H POC Glucose Hemoglobin A1c Calcium 8.1 L Phosphorus 7.90 H Magnesium AST ALT Alkaline Phosphatase Lactate Dehydrogenase C-Reactive Protein Total Protein Albumin Triglycerides Arterial Blood Glucose 187 H Arterial Blood Ionized Calcium Urine WBC (Auto) U Epithel Cells (Auto) Urine Creatinine Random Vancomycin Heparin-induced Plt Ab Coronavirus (PCR) Crossmatch 04/17/21 04/17/21 04/17/21 10:58 10:58 10:58 WBC 12.3 H RBC 2.25 L Hgb 6.7 L Hct 20.9 L MCH MCHC RDW 16.7 H Plt Count 53 L Lymph % (Auto) [place] # (Auto) Eos # (Auto) Seg Neutrophils % Lymphocytes % (Manual) Eosinophils % (Manual) Basophils % (Manual) Nucleated RBC % Seg Neutrophils # Seg Neutrophils # Man Lymphocytes # (Manual) Monocytes # (Manual) Eosinophils # (Manual) Basophils # (Manual) Percent Retic PT 17.1 H INR 1.26 H Fibrinogen D-Dimer ABG pH POC ABG pCO2 POC ABG pO2 ABG pO2 ABG HCO3 ABG O2 Saturation ABG Base Excess ABG Hemoglobin ABG Oxyhemoglobin ABG Sodium ABG Potassium ABG Chloride ABG Glucose Oxyhemoglobin Carboxyhemoglobin Sodium Potassium 5.9 H Chloride Carbon Dioxide 20 L BUN 112 H Creatinine 3.6 H Glucose 174 H POC Glucose Hemoglobin A1c Calcium 7.8 L Phosphorus Magnesium AST ALT Alkaline Phosphatase Lactate Dehydrogenase C-Reactive Protein Total Protein 5.7 L Albumin 2.1 L Triglycerides Arterial Blood Glucose Arterial Blood Ionized Calcium Urine WBC (Auto) U Epithel Cells (Auto) Urine Creatinine Random Vancomycin Heparin-induced Plt Ab Coronavirus (PCR) Crossmatch 04/17/21 04/17/21 04/17/21 12:25 17:57 23:00 WBC RBC Hgb Hct MCH MCHC RDW Plt Count Lymph % (Auto) [place] # (Auto) Eos # (Auto) Seg Neutrophils % Lymphocytes % (Manual) Eosinophils % (Manual) Basophils % (Manual) Nucleated RBC % Seg Neutrophils # Seg Neutrophils # Man Lymphocytes # (Manual) Monocytes # (Manual) Eosinophils # (Manual) Basophils # (Manual) Percent Retic PT INR Fibrinogen D-Dimer ABG pH POC ABG pCO2 POC ABG pO2 ABG pO2 ABG HCO3 ABG O2 Saturation ABG Base Excess ABG Hemoglobin ABG Oxyhemoglobin ABG Sodium ABG Potassium ABG Chloride ABG Glucose Oxyhemoglobin Carboxyhemoglobin Sodium Potassium Chloride Carbon Dioxide BUN Creatinine Glucose POC Glucose 150 H 153 H 138 H Hemoglobin A1c Calcium Phosphorus Magnesium AST ALT Alkaline Phosphatase Lactate Dehydrogenase C-Reactive Protein Total Protein Albumin Triglycerides Arterial Blood Glucose Arterial Blood Ionized Calcium Urine WBC (Auto) U Epithel Cells (Auto) Urine Creatinine Random Vancomycin Heparin-induced Plt Ab Coronavirus (PCR) Crossmatch 04/18/21 04/18/21 04/18/21 00:08 04:55 04:55 WBC 12.4 H RBC 2.55 L Hgb 7.9 L Hct 23.6 L MCH MCHC RDW 16.1 H Plt Count 99 L Lymph % (Auto) [place] # (Auto) Eos # (Auto) Seg Neutrophils % Lymphocytes % (Manual) Eosinophils % (Manual) Basophils % (Manual) Nucleated RBC % Seg Neutrophils # Seg Neutrophils # Man Lymphocytes # (Manual) Monocytes # (Manual) Eosinophils # (Manual) Basophils # (Manual) Percent Retic PT INR Fibrinogen D-Dimer ABG pH POC ABG pCO2 POC ABG pO2 81.2 L ABG pO2 ABG HCO3 ABG O2 Saturation ABG Base Excess ABG Hemoglobin 8.6 L ABG Oxyhemoglobin ABG Sodium 133.0 L ABG Potassium ABG Chloride ABG Glucose 155 H Oxyhemoglobin Carboxyhemoglobin Sodium 136 L Potassium Chloride Carbon Dioxide BUN 86 H Creatinine 3.1 H Glucose 180 H POC Glucose Hemoglobin A1c Calcium 8.2 L Phosphorus 6.50 H Magnesium AST ALT Alkaline Phosphatase Lactate Dehydrogenase C-Reactive Protein Total Protein Albumin Triglycerides Arterial Blood Glucose 155 H Arterial Blood Ionized Calcium 4.4 L Urine WBC (Auto) U Epithel Cells (Auto) Urine Creatinine Random Vancomycin Heparin-induced Plt Ab Coronavirus (PCR) Crossmatch 04/18/21 04/18/21 04/18/21 05:25 11:49 17:15 WBC RBC Hgb Hct MCH MCHC RDW Plt Count Lymph % (Auto) [place] # (Auto) Eos # (Auto) Seg Neutrophils % Lymphocytes % (Manual) Eosinophils % (Manual) Basophils % (Manual) Nucleated RBC % Seg Neutrophils # Seg Neutrophils # Man Lymphocytes # (Manual) Monocytes # (Manual) Eosinophils # (Manual) Basophils # (Manual) Percent Retic PT INR Fibrinogen D-Dimer ABG pH POC ABG pCO2 POC ABG pO2 ABG pO2 ABG HCO3 ABG O2 Saturation ABG Base Excess ABG Hemoglobin ABG Oxyhemoglobin ABG Sodium ABG Potassium ABG Chloride ABG Glucose Oxyhemoglobin Carboxyhemoglobin Sodium Potassium Chloride Carbon Dioxide BUN Creatinine Glucose POC Glucose 163 H 122 H 153 H Hemoglobin A1c Calcium Phosphorus Magnesium AST ALT Alkaline Phosphatase Lactate Dehydrogenase C-Reactive Protein Total Protein Albumin Triglycerides Arterial Blood Glucose Arterial Blood Ionized Calcium Urine WBC (Auto) U Epithel Cells (Auto) Urine Creatinine Random Vancomycin Heparin-induced Plt Ab Coronavirus (PCR) Crossmatch 04/19/21 04/19/21 04/19/21 00:14 03:09 04:00 WBC RBC Hgb Hct MCH MCHC RDW Plt Count Lymph % (Auto) [place] # (Auto) Eos # (Auto) Seg Neutrophils % Lymphocytes % (Manual) Eosinophils % (Manual) Basophils % (Manual) Nucleated RBC % Seg Neutrophils # Seg Neutrophils # Man Lymphocytes # (Manual) Monocytes # (Manual) Eosinophils # (Manual) Basophils # (Manual) Percent Retic PT INR Fibrinogen D-Dimer ABG pH 7.301 L POC ABG pCO2 48.7 H POC ABG pO2 82.1 L ABG pO2 ABG HCO3 ABG O2 Saturation ABG Base Excess ABG Hemoglobin 8.9 L ABG Oxyhemoglobin 93.8 L ABG Sodium 133.9 L ABG Potassium 5.2 H ABG Chloride ABG Glucose 126 H Oxyhemoglobin Carboxyhemoglobin Sodium Potassium 5.3 H Chloride Carbon Dioxide BUN 102 H Creatinine 3.2 H Glucose 116 H POC Glucose 118 H Hemoglobin A1c Calcium 8.2 L Phosphorus Magnesium AST ALT Alkaline Phosphatase Lactate Dehydrogenase C-Reactive Protein Total Protein Albumin Triglycerides Arterial Blood Glucose 126 H Arterial Blood Ionized Calcium Urine WBC (Auto) U Epithel Cells (Auto) Urine Creatinine Random Vancomycin Heparin-induced Plt Ab Coronavirus (PCR) Crossmatch 04/19/21 04/19/21 04/19/21 04:58 05:00 11:18 WBC 12.5 H RBC 2.79 L Hgb 8.6 L Hct 26.2 L MCH MCHC RDW 17.3 H Plt Count 121 L Lymph % (Auto) [place] # (Auto) Eos # (Auto) Seg Neutrophils % Lymphocytes % (Manual) Eosinophils % (Manual) Basophils % (Manual) Nucleated RBC % Seg Neutrophils # Seg Neutrophils # Man Lymphocytes # (Manual) Monocytes # (Manual) Eosinophils # (Manual) Basophils # (Manual) Percent Retic PT INR Fibrinogen D-Dimer ABG pH POC ABG pCO2 POC ABG pO2 ABG pO2 ABG HCO3 ABG O2 Saturation ABG Base Excess ABG Hemoglobin ABG Oxyhemoglobin ABG Sodium ABG Potassium ABG Chloride ABG Glucose Oxyhemoglobin Carboxyhemoglobin Sodium Potassium Chloride Carbon Dioxide BUN Creatinine Glucose POC Glucose 118 H 118 H Hemoglobin A1c Calcium Phosphorus Magnesium AST ALT Alkaline Phosphatase Lactate Dehydrogenase C-Reactive Protein Total Protein Albumin Triglycerides Arterial Blood Glucose Arterial Blood Ionized Calcium Urine WBC (Auto) U Epithel Cells (Auto) Urine Creatinine Random Vancomycin Heparin-induced Plt Ab Coronavirus (PCR) Crossmatch 04/19/21 04/19/21 04/20/21 16:34 23:42 04:30 WBC 12.7 H RBC 2.64 L Hgb 8.1 L Hct 25.0 L MCH MCHC RDW 16.9 H Plt Count 123 L Lymph % (Auto) [place] # (Auto) Eos # (Auto) Seg Neutrophils % Lymphocytes % (Manual) Eosinophils % (Manual) Basophils % (Manual) Nucleated RBC % Seg Neutrophils # Seg Neutrophils # Man Lymphocytes # (Manual) Monocytes # (Manual) Eosinophils # (Manual) Basophils # (Manual) Percent Retic PT INR Fibrinogen D-Dimer ABG pH POC ABG pCO2 POC ABG pO2 ABG pO2 ABG HCO3 ABG O2 Saturation ABG Base Excess ABG Hemoglobin ABG Oxyhemoglobin ABG Sodium ABG Potassium ABG Chloride ABG Glucose Oxyhemoglobin Carboxyhemoglobin Sodium Potassium Chloride Carbon Dioxide BUN Creatinine Glucose POC Glucose 133 H 134 H Hemoglobin A1c Calcium Phosphorus Magnesium AST ALT Alkaline Phosphatase Lactate Dehydrogenase C-Reactive Protein Total Protein Albumin Triglycerides Arterial Blood Glucose Arterial Blood Ionized Calcium Urine WBC (Auto) U Epithel Cells (Auto) Urine Creatinine Random Vancomycin Heparin-induced Plt Ab Coronavirus (PCR) Crossmatch 04/20/21 04/20/21 04/20/21 04:30 04:30 05:12 WBC RBC Hgb Hct MCH MCHC RDW Plt Count Lymph % (Auto) [place] # (Auto) Eos # (Auto) Seg Neutrophils % Lymphocytes % (Manual) Eosinophils % (Manual) Basophils % (Manual) Nucleated RBC % Seg Neutrophils # Seg Neutrophils # Man Lymphocytes # (Manual) Monocytes # (Manual) Eosinophils # (Manual) Basophils # (Manual) Percent Retic PT 16.1 H INR 1.17 H Fibrinogen D-Dimer ABG pH POC ABG pCO2 POC ABG pO2 ABG pO2 ABG HCO3 ABG O2 Saturation ABG Base Excess ABG Hemoglobin ABG Oxyhemoglobin ABG Sodium ABG Potassium ABG Chloride ABG Glucose Oxyhemoglobin Carboxyhemoglobin Sodium 136 L Potassium 5.5 H Chloride Carbon Dioxide BUN 111 H Creatinine 3.6 H Glucose 130 H POC Glucose 113 H Hemoglobin A1c Calcium Phosphorus 8.30 H Magnesium AST ALT Alkaline Phosphatase Lactate Dehydrogenase C-Reactive Protein Total Protein Albumin Triglycerides Arterial Blood Glucose Arterial Blood Ionized Calcium Urine WBC (Auto) U Epithel Cells (Auto) Urine Creatinine Random Vancomycin Heparin-induced Plt Ab Coronavirus (PCR) Crossmatch Chest x-ray: other (none today) Allied health notes reviewed: nursing
--- NOTE | 2021-04-20 15:38 | Progress Note ---
Assessment and Plan Cultures: SARS CoV2 PCR: Positive 03/13/2021 blood culture: No growth Resp cultures 03/14/2021: MSSA 03/23/2021 blood culture: No growth 03/23/2021 sputum culture: Usual respiratory maury 03/29/2021 blood culture: no growth 04/06/2021 blood culture: In process 04/06/2021 endotracheal aspirate culture: E faecalis 04/06/2021 urine culture: No growth A/P: 31-year-old female with asthma, morbid obesity, Crohn's disease admitted with cough and shortness of breath: #Septic shock: s/p abx. Persistently febrile, on multiple pressors. Has previously completed Ancef followed by Cefepime, and now on Aztreonam, Vancomycin and levofloxacin. #Bilateral pneumonia: Secondary to COVID-19. Severe disease, then developed MSSA in the lungs. s/p Actemra 03/15/2021, completed steroids for COVID. D-dimer very high initially, which has shown improvement. #Acute hypoxic respiratory failure: on the vent. #Rash with eosinophilia: Question of drug reaction, remains off Cefepime. 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 #Acute renal failure: progressive. Nephrology following, on HD. #Acute asthma exacerbation #Morbid obesity Recs: -Completed empiric broad specturm antibiotics and anti-fungals without improvement. -At this point I doubt there is much less to offer from an ID standpoint. -on steroids per ICU -Unable to complete CT -extremely poor prognosis, recommend palliative care GEloisa Ling MD [facility] ([facility] O: [phone] F: [phone] Subjective Date of service: 04/20/21 Principal diagnosis: Ac hypoxemic resp failure; AE-Asthma; SAI; Crohn's; COVID- 19; Pneumonia Interval history: Afebrile since last night, white count 12.7. No other acute changes. For trach and PEG tomorrow. Objective - Exam Narrative Exam: Physical exam deferred to reduce risk of transmission of COVID-19. Please refer to primary team's note. - Constitutional Vitals: Vital Signs Temp Pulse Resp BP Pulse Ox 98.1 F 113 H 21 146/78 100 04/20/21 15:23 04/20/21 15:23 04/20/21 15:23 04/20/21 15:23 04/20/21 15:23 Temperature -Last 24 Hours Temperature 98.1 F Temperature 97.9 F Temperature 97.9 F Temperature 97.9 F Temperature 97.9 F Temperature 99.1 F Temperature 99 F Temperature 100.6 F Temperature 101.1 F Temperature 100.9 F - Labs CBC & Chem 7: 04/20/21 04:30 04/20/21 04:30 Labs: Abnormal lab results 04/19/21 04/19/21 04/20/21 Range/Units 16:34 23:42 04:30 WBC 12.7 H (4.5-11.0) K/mm3 RBC 2.64 L (3.65-5.03) M/mm3 Hgb 8.1 L (10.1-14.3) gm/dl Hct 25.0 L (30.3-42.9) % RDW 16.9 H (13.2-15.2) % Plt Count 123 L (140-440) K/mm3 PT (12.2-14.9) Sec. INR (0.87-1.13) Sodium (137-145) mmol/L Potassium (3.6-5.0) mmol/L BUN (7-17) mg/dL Creatinine (0.6-1.2) mg/dL Glucose (65-100) mg/dL POC Glucose 133 H 134 H (70-105) mg/dL Phosphorus (2.5-4.5) mg/dL 04/20/21 04/20/21 04/20/21 Range/Units 04:30 04:30 05:12 WBC (4.5-11.0) K/mm3 RBC (3.65-5.03) M/mm3 Hgb (10.1-14.3) gm/dl Hct (30.3-42.9) % RDW (13.2-15.2) % Plt Count (140-440) K/mm3 PT 16.1 H (12.2-14.9) Sec. INR 1.17 H (0.87-1.13) Sodium 136 L (137-145) mmol/L Potassium 5.5 H (3.6-5.0) mmol/L BUN 111 H (7-17) mg/dL Creatinine 3.6 H (0.6-1.2) mg/dL Glucose 130 H (65-100) mg/dL POC Glucose 113 H (70-105) mg/dL Phosphorus 8.30 H (2.5-4.5) mg/dL
[2021-04-20] MEDS: ACETAMINOPHEN 325 MG/10.15 ML ORAL LIQD UNIT DOSE FEEDTUBE PRN (22:19)
[2021-04-21] MEDS: INSULIN LISPRO 100 UNIT/ML SUB-Q SCH ×2 (00:09→06:21)
[2021-04-21] MEDS: fentaNYL DRIP Premix 2,000 MCG/100 ML BAG IV SCH ×4 (01:25→12:50)
[2021-04-21] MEDS: IPRATROPIUM/ALBUTEROL SULFATE 3 ML AMPUL.NEB IH SCH ×2 (02:10→08:40)
[2021-04-21] MEDS: FREE WATER PO SCH ×3 (02:45→10:51)
[2021-04-21] MEDS: MIDAZOLAM 100 MG in SODIUM CHLORIDE 0.9% 80 ML IV SCH (04:35)
[2021-04-21 05:21] LABS: Hemoglobin 8.2 gm/dl (10.1-14.3); Mean Corpuscular HGB Conc 33 % (30-34); Mean Corpuscular Volume 94 fl (79-97); Platelet Count 115 K/mm3 (140-440); Red Blood Count 2.65 M/mm3 (3.65-5.03); Red Cell Distribution Width 16.8 % (13.2-15.2)
[2021-04-21 05:39] LABS: Calcium 8.5 mg/dL (8.4-10.2)
[2021-04-21 06:19] LABS: ABG Base Excess 0.5 mmol/L (-2.0-3.0); ABG HCO3 24.1 mmol/L (20.0-26.0); ABG Methemoglobin 0.5 % (0.0-1.5); ABG Oxygen Saturation 99.2 % (95.0-99.0); ABG PCO2 34.1 mm Hg; ABG PH 7.467 pH Units (7.350-7.450); ABG PO2 180.7 mm Hg (80.0-90.0)
[2021-04-21] MEDS: QUEtiapine 100 MG TAB PO SCH (10:49)
[2021-04-21] MEDS: SENNOSIDES/DOCUSATE SODIUM 8.6/50 MG TAB FEEDTUBE SCH (10:51)
[2021-04-21] MEDS: FAMOTIDINE 10 MG TAB PO SCH (10:51)
[2021-04-21] MEDS: CALCIUM ACETATE 667 MG CAP FEEDTUBE SCH (10:51)
[2021-04-21] MEDS: HYDROCORTISONE SOD SUCC 100 MG/2 ML VIAL IV SCH (10:53)
[2021-04-21] MEDS: AQUAPHOR OINTMENT TP SCH (11:01)
--- NOTE | 2021-04-21 11:08 | Progress Note ---
<ANCELMO GONZALEZ - Last Filed: 04/21/21 17:18> Assessment and Plan Assessment and plan: This is a 31-year-old female with asthma, morbid obesity and Crohn's disease admitted for COVID-19 pneumonia and and acute renal failure Hospital Course to Date: --- 04/02: plasma exchange, tessa on sedatives and vasopressor support, HD for ultrafiltration 04/03: remains on artic sun but water temp noted to be in the 30s today. Completed plasmapheresis x2 and is now on steroid taper however minimal change noted to rash/discoloration. Eyes are more clear today but remain red under lids (tops of eye). Acidosis noted on ABG. Hyperkalemia and hyperphosphatemeia persists. Sedation increased for RR in to the 40s-50s and vasopressors being titrated as tolerated. 04/04: Patient receiving 1 unit PRBC per heme's recommendation, increased respiratory effort noted, patient is acidotic on ABG and given 1 amp of bicarb in addition to bicarb drip, sedation increased for vent synchrony. No HD per nephrology given tachycardia. Seroquel started. 04/05: Patient on the vent and sedated, still on 3 pressors. Patient to wean off propofol gtt, seroquel increased. Patient afebrile overnight, however artic sun is still in place. Will attempt to take off the cooling blanket today, will continue to assess for fever curve. Continue current IV Abx therapy per ID. Plan for HD today per Nephro. Patient's family at the bedside, thoroughly discussed patient's condition and overall poor prognosis. All questions and concerns were addressed. Team will continue to f/u with family with further updates. 04/06: Patient remains sedated and on the vent, still on fent and versed, propofol was weaned off. Low Hbg this am, 2 units of PRBCs ordered. Patient febrile overnight, patient completed IV abx course, leukocytosis downtrending. c/f for possible drug fever vs DVT, BLE doppler reordered to R/O DVT. Patient remains on high dose pressors, wean pressors as tolerated for MAP of 65. 04/07: Patient appears to be in distress thi am, tachypneic and tachycardic, with increased work of breathing. Propofol stopped this am. IV push versed given and versed gtt was increased to max. D/w CCM plan to possibly restart propofol since patient is not tolerating sedation wean. Patient remains febrile througho ut, pancultured yesterday by ID and IV abx was restarted. Overall poor prognosis at this time. Patient's mother and siblings at the bedside were update on patient's status. Plan for possible family meeting with the care team Monday. 04/08: Patient with worsening CXR this am, increased of vent setting overnight, respiratory acidosis from this am ABG. Patient remains febrile, IV ABx switched to Merrem for VAP coverage, ID is following. Patient remains on sedation and on pressors. Low hemoglobin this am, 1unit of PRBCs ordered. Hyperkalemia noted, per Nephro it is stable no intervention at this time plan for HD tomorrow. Spoke with patient's mom, meeting postponed for possibly next week, case management to arrange. Hospitalist also called and updated patient's mother. Team will continue to follow up. 04/09: Patient condition remains unchanged, on the vent, on sedation, and on 2 pressors. Still febrile, on IV Abx, X1 set of fungal blood culture ordered. D/w ID recommended to start micafungin 100mg Qday. Hyperkalemic this am, plan for HD today. 04/10: VENICE overnight. Patient remains on the vent and sedated. Afebrile overnight, stress steroids added, pressors requirement is going down. HD overnight 3L out, plan for HD again today. Continue IV Abx and antifungal, F/u on culture data. 04/11: Patient remains on the vent and sedated, on minimal pressors this am. Tachycardic HR in the 130-140s this am. Per RN 4L out in HD yesterday, X1 dose of 25% Albumin given. Bloody drainage with clots also noted from patient nose, mouth, and ETT, Hbg 7 this am. Will hold AC for now, serial H&H ordered, transfuse if Hbg less than 7. 04/12: Patient was able to get HD today, Levaquin was stopped by ID. Consider CT chest/abdomen/pelvis when feasible per ID. Patient remains tachycardic. Was febrile most of the day however temperature decreased with icing and tylenol. 04/13: Patient had a CT chest, abdomen/pelvis with oral contrast and CT head today. Patient received 1 unit PRBC today given down trending of H/H with continual bloody drainage from mouth/nose. Patient will receive hemodialysis today. Patient started on Benadryl every 6, received 1 g of Solu-Medrol x1 for apparent angioedema post CT with contrast. 04/14: family meeting today with Dr. Noble. Continue supportive care. Thrombocytopenia today and given 1 units platelets. Vasopressors where weaned off overnight but restarted this morning for low maps. Will consider trach/peg next week with lower vent settings. 04/15: started taper on steroids, 1 units prbc per hem/onc, holding HD today per nephrology for ST. Still febrile, will reculture today. 04/16: Was able to be titrated off Levophed today. Was taken off vaso overnight and this was restarted today which briefly helped HR which was losw 100s. Weaning fentanyl and Versed as tolerated. HD today. Patient tachy this afternoon. 04/17: 2 units PRBC ordered for today. Still remains on vasopressin. HIT positive but anticoagulation withheld due to persistent thrombocytopenia and bleeding. 04/18: Patient able to be weaned off of vasopressors but remains on Versed for sedation. Sinus tachycardia on monitor. Plt and h/h improved. 04/19: Patient on minimal vent settings, peep dropped to 8 by [facility]. Remains on sedation and on low dose Levophed this am. Surgery consulted for possible trach and PEG. Hyperkalemia from this am lab, plan for HD today. H&H and platelets remains stable, will continue to monitor. 04/20: VENICE overnight. Patient remains intubated and sedated, RASS 0 to -2. No longer on pressors, afebrile this am. Trach and PEG postponed for tomorrow. Pending HD today. 04/21: VENICE overnight. Patient remains stable on the vent and on versed and fentanyl gtt RASS -2. Plan for PEG and Trach today by Gen. Surgery. Assessment and Plan #Neuro: Sedated - Intubated and sedated on fentanyl and versed, RASS -2 - On Seroquel - PRN EKG for QTC monitoring - Daily SAT and SBT per [facility] - PRN analgesia for CPOT greater than 3 - Maintenance of sleep-wake cycle #CV: Tachycardia, s/p hypertension now with hypotension - Remains ST on the monitor - Off pressors - Vasopressor on standby - Continue blood pressure monitor per protocol - Maintain MAP above 65 - SCDs for VTE proph #Respiratory: Acute hypoxic respiratory failure #asthma exacerbation #COVID-19 pneumonia/ARDS, #RUL PNA #Bronchospasm (resolved) - ETT on 03/14 - Vent setting: AC/PC- 40%,8,30,max PS60 - S/p Bronc on 04/11 which showed alveolar hemorrhage - AM ABG noted - CCM consulted, appreciate recommendations - Continue IV Steroids and Nebs - VAP bundle addressed - Aspiration precaution HOB above 30 - Daily SBT and SAT trials as tolerated - Daily ABG and CXR per CCM - Continue SPO2 monitoring for SPO2 goal above 92% - Plan for trach and PEG today by Gen. surgery #GI: transaminitis #H/o MO and Crohn's disease -Nutrition consulted, appreciate recommendations -Tube feeding: Nepro at goal -Free water decreased 60 mL every 4 hours -Continue BR: Senokot -Continue PPI #: Acute kidney injury likely secondary to ATN #Hyperkalemia #hyponatremia- resolved - Initial Scr was wnl - Scr as high as 10.8, 5.1 this am - Patient is now anuric - Nephrology consulted, appreciate recommendations - HD initiated 03/15 - HD yesterday 04/20 - Daily weights - Strict intake and output - Avoid nephrotoxic medications; Renally dose medications - Monitor and replace electrolytes as needed #ID:Septic Shock #COVID-19 pneumonia #Leukocytosis - WBcs downtrending, 12.5 this am - Low grade Temp overnight, TMAX 100.8 - Infectious disease consulted, appreciate recommendations - IV Abx course completed -S/p Micafungin started per ID - S/p X1 dose of redemsevir, was D/C due to worsen renal function - S/p X1 dose actemra - Trend COVID-19 inflammatory markers - On Vitamin C/vitamin D/zinc - Daily CBC monitor #Heme: Anemia #Thrombocytopenia #?HUS vs drug reaction #Conjunctival hemorrhage- resolved - s/p plasmapheresis x2 (04/01-04/02) - S/p 10units of PRBCs and 2units of plt - Eliquis restarted on 03/29 - 04/11 Eliquis held, bloody drainage noted from nose, mouth, and ETT - H&H remains stable - Trend CBC - Transfuse hemoglobin less than 7 - SCDs to bilateral lower extremity while in bed - 03/23 BLE duplex US shows no DVT - Repeat BLE doppler negative - 03/22 HIT negative, 04/17 HIT positive #Endo: Hyperglycemia - Hemoglobin A1c 6.3 - SSI Q6hrs - Avoid hypoglycemia - While critically ill target blood glucose of 140-180 The high probability of a clinically significant, sudden or life threatening deterioration of the [Respiratory, Neuro, CV] system(s) required my full and direct attention, intervention and personal management. The aggregate critical care time was [60] minutes. This time is in addition to time spent performing reported procedures but includes the following: [x] Data Review and interpretation [x] Patient assessment and monitoring of vital signs [x] Documentation [x] Medication orders and management Disposition Plan: ICU Total Time Spent with Patient (Minutes): 60 History Interval history: Patient is seen and examined at the bedside. Patient remains on the vent and on sedation. Off pressors and aferbile this am. VENICE overnight Hospitalist Physical - Constitutional Vitals: Temp Pulse Resp BP Pulse Ox 99.0 F 128 H 24 144/86 98 04/21/21 03:22 04/21/21 09:01 04/21/21 09:01 04/21/21 08:30 04/21/21 09:01 General appearance: Present: no acute distress, well-nourished, obese, other (Intubated and sedated) - EENT Eyes: Present: PERRL - Respiratory Respiratory effort: normal Respiratory: bilateral: rhonchi - Cardiovascular Rhythm: regular Heart Sounds: Present: S1 & S2 - Extremities Extremities: no ischemia, pulses intact, pulses symmetrical Extremity abnormal: edema - Peripheral Assessment Generalized Edema Type: Non-pitting Edema Degree: 2+ Capillary Refill: < 3 seconds Skin Temperature: Warm Peripheral Pulses: within normal limits - Abdominal General gastrointestinal: soft, non-tender, normal bowel sounds - Integumentary Integumentary: Present: warm, dry - Psychiatric Psychiatric: other (Intubated and sedated) - Neurologic Neurologic: other (Intubated and sedated) - Allied Health Allied health notes reviewed: nursing Results - Labs CBC & Chem 7: 04/21/21 04:00 04/21/21 04:00 Labs: Laboratory Last Values WBC 13.2 K/mm3 (4.5-11.0) H 04/21/21 04:00 RBC 2.65 M/mm3 (3.65-5.03) L 04/21/21 04:00 Hgb 8.2 gm/dl (10.1-14.3) L 04/21/21 04:00 Hct 25.0 % (30.3-42.9) L 04/21/21 04:00 MCV 94 fl (79-97) 04/21/21 04:00 MCH 31 pg (28-32) 04/21/21 04:00 MCHC 33 % (30-34) 04/21/21 04:00 RDW 16.8 % (13.2-15.2) H 04/21/21 04:00 Plt Count 115 K/mm3 (140-440) L 04/21/21 04:00 Lymph % (Auto) 10.7 % (13.4-35.0) L 03/28/21 09:37 [place] % (Auto) 5.2 % (0.0-7.3) 03/28/21 09:37 Eos % (Auto) [place] 04/07/21 03:50 Baso % (Auto) 0.2 % (0.0-1.8) 03/28/21 09:37 Lymph # (Auto) 1.7 K/mm3 (1.2-5.4) 03/28/21 09:37 [place] # (Auto) 0.9 K/mm3 (0.0-0.8) H 03/28/21 09:37 Eos # (Auto) 0.6 K/mm3 (0.0-0.4) H 03/28/21 09:37 Baso # (Auto) 0.0 K/mm3 (0.0-0.1) 03/28/21 09:37 Add Manual Diff Complete 04/17/21 04:42 Total Counted 100 04/17/21 04:42 Seg Neutrophils % 80.0 % (40.0-70.0) H 03/28/21 09:37 Seg Neuts % (Manual) 68.0 % (40.0-70.0) 04/17/21 04:42 Band Neutrophils % 4.0 % 04/17/21 04:42 Lymphocytes % (Manual) 10.0 % (13.4-35.0) L 04/17/21 04:42 Reactive Lymphs % (Man) 2.0 % 04/17/21 04:42 Monocytes % (Manual) 6.0 % (0.0-7.3) 04/17/21 04:42 Eosinophils % (Manual) 3.0 % (0.0-4.3) 04/17/21 04:42 Basophils % (Manual) 2.0 % (0.0-1.8) H 04/03/21 04:30 Metamyelocytes % 6.0 % 04/17/21 04:42 Myelocytes % 1.0 % 04/17/21 04:42 Nucleated RBC % Not Reportable 04/17/21 04:42 Seg Neutrophils # 13.0 K/mm3 (1.8-7.7) H 03/28/21 09:37 Seg Neutrophils # Man 9.6 K/mm3 (1.8-7.7) H 04/17/21 04:42 Band Neutrophils # 0.6 K/mm3 04/17/21 04:42 Lymphocytes # (Manual) 1.4 K/mm3 (1.2-5.4) 04/17/21 04:42 Abs React Lymphs (Man) 0.3 K/mm3 04/17/21 04:42 Monocytes # (Manual) 0.8 K/mm3 (0.0-0.8) 04/17/21 04:42 Eosinophils # (Manual) 0.4 K/mm3 (0.0-0.4) 04/17/21 04:42 Basophils # (Manual) 0.0 K/mm3 (0.0-0.1) 04/17/21 04:42 Metamyelocytes # 0.8 K/mm3 04/17/21 04:42 Myelocytes # 0.1 K/mm3 04/17/21 04:42 Promyelocytes # 0.0 K/mm3 04/17/21 04:42 Blast Cells # 0.0 K/mm3 04/17/21 04:42 WBC Morphology Not Reportable 04/17/21 04:42 Hypersegmented Neuts Not Reportable 04/17/21 04:42 Hyposegmented Neuts Not Reportable 04/17/21 04:42 Hypogranular Neuts Not Reportable 04/17/21 04:42 Smudge Cells Not Reportable 04/17/21 04:42 Toxic Granulation Not Reportable 04/17/21 04:42 Toxic Vacuolation Not Reportable 04/17/21 04:42 Dohle Bodies Not Reportable 04/17/21 04:42 Pelger-Huet Anomaly Not Reportable 04/17/21 04:42 Bridgette Rods Not Reportable 04/17/21 04:42 Platelet Estimate Consistent w auto 04/17/21 04:42 Clumped Platelets Not Reportable 04/17/21 04:42 Plt Clumps, EDTA Not Reportable 04/17/21 04:42 Large Platelets Not Reportable 04/17/21 04:42 Giant Platelets Few 04/17/21 04:42 Platelet Satelliting Not Reportable 04/17/21 04:42 Plt Morphology Comment Not Reportable 04/17/21 04:42 RBC Morphology Not Reportable 04/17/21 04:42 Dimorphic RBCs Not Reportable 04/17/21 04:42 Polychromasia Few 04/17/21 04:42 Hypochromasia Not Reportable 04/17/21 04:42 Poikilocytosis Not Reportable 04/17/21 04:42 Anisocytosis Not Reportable 04/17/21 04:42 Microcytosis Not Reportable 04/17/21 04:42 Macrocytosis Not Reportable 04/17/21 04:42 Spherocytes Few 04/17/21 04:42 Pappenheimer Bodies Not Reportable 04/17/21 04:42 Sickle Cells Not Reportable 04/17/21 04:42 Target Cells Not Reportable 04/17/21 04:42 Tear Drop Cells Not Reportable 04/17/21 04:42 Ovalocytes Not Reportable 04/17/21 04:42 Helmet Cells Not Reportable 04/17/21 04:42 [place] Bodies Not Reportable 04/17/21 04:42 [place] Rings Not Reportable 04/17/21 04:42 [place] Cells Not Reportable 04/17/21 04:42 Bite Cells Not Reportable 04/17/21 04:42 Crenated Cell Not Reportable 04/17/21 04:42 Elliptocytes Not Reportable 04/17/21 04:42 Acanthocytes (Spur) Not Reportable 04/17/21 04:42 Rouleaux Not Reportable 04/17/21 04:42 Hemoglobin C Crystals Not Reportable 04/17/21 04:42 Schistocytes Not Reportable 04/17/21 04:42 Malaria parasites Not Reportable 04/17/21 04:42 Percent Retic 4.52 % (0.78-2.58) H 03/31/21 09:49 Vaibhav Bodies Not Reportable 04/17/21 04:42 Hem Pathologist Commnt No 04/17/21 04:42 PT 16.1 Sec. (12.2-14.9) H 04/20/21 04:30 INR 1.17 (0.87-1.13) H 04/20/21 04:30 APTT 26.3 Sec. (24.2-36.6) 04/20/21 04:30 Fibrinogen 299 mg/dl (211-480) 04/20/21 04:30 D-Dimer 2696.79 ng/mlDDU (0-234) H 04/08/21 04:40 Heparin Anti-Xa, Unfract Negative (Negative) 04/14/21 09:45 ABG pH 7.467 pH Units (7.350-7.450) H 04/21/21 05:05 POC ABG pCO2 48.7 mmHg (32.0-48.0) H 04/19/21 03:09 ABG pCO2 34.1 mm Hg 04/21/21 05:05 POC ABG pO2 82.1 mmHg (83-108) L 04/19/21 03:09 ABG pO2 180.7 mm Hg (80.0-90.0) H 04/21/21 05:05 POC ABG HCO3 23.5 04/19/21 03:09 ABG HCO3 24.1 mmol/L (20.0-26.0) 04/21/21 05:05 ABG O2 Saturation 99.2 % (95.0-99.0) H 04/21/21 05:05 ABG O2 Content 12.1 (0.0-44) 04/21/21 05:05 POC ABG Base Excess -2.9 04/19/21 03:09 ABG Base Excess 0.5 mmol/L (-2.0-3.0) 04/21/21 05:05 ABG Hemoglobin 8.6 gm/dl (12.0-16.0) L 04/21/21 05:05 ABG Oxyhemoglobin 93.8 (94-98) L 04/19/21 03:09 ABG Carboxyhemoglobin 2.2 % (0.0-5.0) 04/21/21 05:05 ABG Methemoglobin 0.5 % (0.0-1.5) 04/21/21 05:05 ABG Sodium 133.9 mmol/L (136.0-145.0) L 04/19/21 03:09 ABG Potassium 5.2 mmol/L (3.40-4.50) H 04/19/21 03:09 ABG Chloride 101.0 mmol/L (98-107) 04/19/21 03:09 ABG Glucose 126 mg/dL (65-95) H 04/19/21 03:09 ABG Lactate Cancelled 04/03/21 20:45 Oxyhemoglobin 96.6 % (95.0-99.0) 04/21/21 05:05 Carboxyhemoglobin 1.1 (0.5-1.5) 04/19/21 03:09 FiO2 40 % 04/21/21 05:05 FiO2 % 40.0 04/19/21 03:09 Sodium 137 mmol/L (137-145) 04/21/21 04:00 Potassium 4.5 mmol/L (3.6-5.0) 04/21/21 04:00 Chloride 99.5 mmol/L (98-107) 04/21/21 04:00 Carbon Dioxide 24 mmol/L (22-30) 04/21/21 04:00 Anion Gap 18 mmol/L 04/21/21 04:00 BUN 83 mg/dL (7-17) H 04/21/21 04:00 Creatinine 2.5 mg/dL (0.6-1.2) H 04/21/21 04:00 Estimated GFR 27 ml/min 04/21/21 04:00 BUN/Creatinine Ratio 33 % 04/21/21 04:00 Glucose 133 mg/dL (65-100) H 04/21/21 04:00 POC Glucose 109 mg/dL (70-105) H 04/21/21 05:28 Hemoglobin A1c 6.3 % (4-6) H 03/15/21 05:09 Lactic Acid 0.80 mmol/L (0.7-2.0) 04/07/21 03:50 Calcium 8.5 mg/dL (8.4-10.2) 04/21/21 04:00 Phosphorus 6.60 mg/dL (2.5-4.5) H D 04/21/21 04:00 Magnesium 1.90 mg/dL (1.7-2.3) 04/21/21 04:00 Ferritin 151.6 ng/mL (10.0-200.0) 03/18/21 04:30 Total Bilirubin 0.30 mg/dL (0.1-1.2) 04/17/21 10:58 Bilirubin Cancelled 04/03/21 20:45 AST 29 units/L (5-40) 04/17/21 10:58 ALT 44 units/L (7-56) 04/17/21 10:58 Alkaline Phosphatase 79 units/L (35-129) 04/17/21 10:58 Lactate Dehydrogenase 394 units/L (91-180) H 04/05/21 05:20 C-Reactive Protein 26.10 mg/dL (0.00-1.30) H 04/08/21 04:00 Total Protein 5.7 g/dL (6.3-8.2) L 04/17/21 10:58 Albumin 2.1 g/dL (3.9-5) L 04/17/21 10:58 Albumin/Globulin Ratio 0.6 % 04/17/21 10:58 Triglycerides 406 mg/dL (2-149) H 04/11/21 04:15 Serotonin Release Assay See sanned result 04/14/21 09:45 Procalcitonin < 0.05 ng/mL (<0.15) 03/13/21 15:40 HCG, Qual Negative (Negative) 03/13/21 13:26 Arterial Blood Glucose 126 mg/dL (65-95) H 04/19/21 03:09 Arterial Blood Ionized Calcium 4.4 mg/dL (4.6-5.3) L 04/18/21 00:08 Urine Color Sweta (Yellow) 04/15/21 18:35 Urine Turbidity Cloudy (Clear) 04/15/21 18:35 Urine pH 5.0 (5.0-7.0) 04/15/21 18:35 Ur Specific [place] 1.025 (1.003-1.030) 04/15/21 18:35 Urine Protein >500 mg/dL (Negative) 04/15/21 18:35 Urine Glucose (UA) Neg mg/dL (Negative) 04/15/21 18:35 Urine Ketones Neg mg/dL (Negative) 04/15/21 18:35 Urine Blood Mod (Negative) 04/15/21 18:35 Urine Nitrite Neg (Negative) 04/15/21 18:35 Urine Bilirubin Neg (Negative) 04/15/21 18:35 Urine Urobilinogen < 2.0 mg/dL (<2.0) 04/15/21 18:35 Ur Leukocyte Esterase Mod (Negative) 04/15/21 18:35 Urine WBC (Auto) 156.0 /HPF (0.0-6.0) H 04/15/21 18:35 Urine RBC (Auto) 56.0 /HPF (0.0-6.0) 04/15/21 18:35 U Epithel Cells (Auto) 15.0 /HPF (0-13.0) H 04/15/21 18:35 Urine Bacteria (Auto) 2+ /HPF (Negative) 04/15/21 18:35 Urine WBC Clumps 3+ /HPF 04/15/21 18:35 Ur Renal Epithelial Cell 151 /LPF 04/06/21 Unknown Urine Mucus Few /HPF 04/15/21 18:35 Urine Yeast (Budding) 3+ /HPF 04/15/21 18:35 Urine Creatinine 40.1 mg/dL (0.1-20.0) H 03/14/21 17:50 Urine Sodium 124 mmol/L 03/14/21 17:50 Random Vancomycin 11.9 ug/mL (0-40.0) 04/15/21 07:05 KIMBERLEY Screen Negative (Negative) 04/07/21 08:27 Heparin-induced Plt Ab Positive (Negative) H 04/14/21 09:45 UF Heparin High Dose 0 % Release 04/14/21 09:45 JUAN UFH Low Dose 0.1 1 % Release 04/14/21 09:45 JUAN UFH Low Dose 0.5 0 % Release 04/14/21 09:45 Coronavirus (PCR) Negative (Negative) 04/04/21 09:00 Hepatitis A IgM Ab Non-reactive (NonReactive) 03/15/21 05:09 Hep Bs Antigen Nonreactive (Negative) 03/15/21 05:09 Hep B Core IgM Ab Non-reactive (NonReactive) 03/15/21 05:09 Hepatitis C Antibody Non-reactive (NonReactive) 03/15/21 05:09 Schistocytes Smear None seen 03/31/21 12:11 Blood Type O POSITIVE 04/15/21 12:10 Antibody Screen Positive 04/15/21 12:10 Antibody Identification Anti-E 04/15/21 12:10 Direct Antiglob Test Negative 03/31/21 23:18 NIKOLE, Poly Interpret Negative 03/31/21 23:18 Crossmatch See Detail 04/15/21 12:10 Microbiology: Microbiology 04/15/21 11:19 Peripheral/Venous Blood Culture - Final NO GROWTH AFTER 5 DAYS 04/15/21 11:16 Peripheral/Venous Blood Culture - Final NO GROWTH AFTER 5 DAYS Bazan/IV: Voiding Method Incontinent Active Medications - Current Medications Current Medications: Generic Name Dose Route Start Last Admin Trade Name Freq PRN Reason Stop Dose Admin Acetaminophen 650 mg 03/31/21 12:41 04/20/21 22:19 Acetaminophen 325 Mg/10.15 Ml Oral Liqd Unit Dose FEEDTUBE 650 mg Q6H PRN Administration TEMP >/=100.4 Albumin Human 25 gm 04/01/21 08:19 04/01/21 16:23 Albumin Human 25% (25 Gm/100 Ml) Inj IV 25 gm KARLOS PRN Administration Hypotension Albuterol 2.5 mg 03/19/21 00:53 Albuterol 2.5 Mg/3 Ml Nebu IH Q4HRT PRN Shortness Of Breath Albuterol/Ipratropium 1 ampul 03/19/21 08:00 04/21/21 08:40 Ipratropium/Albuterol Sulfate 3 Ml Ampul.Neb IH 1 ampul Q6HRT INESSA Administration Lipase/Protease/Amylase 1 each 04/09/21 17:17 Lipase 10,500/Protease 25,000/Amylase 43,750 (Units) Cap FEEDTUBE PRN PRN For Clogged Feeding Tube Calcium Acetate 1,334 mg 04/03/21 20:00 04/21/21 10:51 Calcium Acetate 667 Mg Cap FEEDTUBE Not Given TID INESSA Dextrose 50 ml 03/14/21 11:02 03/15/21 11:40 Dextrose 50% In Water (25gm) 50 Ml Syringe IV 50 ml Q30MIN PRN Administration Hypoglycemia Protocol Famotidine 10 mg 03/17/21 22:00 04/21/21 10:51 Famotidine 10 Mg Tab PO Not Given BID INESSA Fentanyl 50 mcg 04/15/21 11:48 04/18/21 18:58 Fentanyl 100 Mcg/2 Ml Inj IV 50 mcg Q10MIN PRN Administration ANALGESIA Hydrocortisone Sodium Succinate 50 mg 04/18/21 10:00 04/20/21 22:13 Hydrocortisone Sod Succ 100 Mg/2 Ml Vial IV 04/21/21 22:01 50 mg Q12H INESSA Administration Hydrocortisone Sodium Succinate 25 mg 04/22/21 10:00 Hydrocortisone Sod Succ 100 Mg/2 Ml Vial IV 04/25/21 09:59 QDAY INESSA Hydrophilic Ointment 1 applic 03/14/21 17:50 04/18/21 19:02 Lip Therapy Vaseline TP 1 applic Q2HR PRN Administration Dry Lips Hydrophilic Ointment 1 applic 04/15/21 13:00 04/20/21 22:12 Aquaphor Ointment TP 1 applic Q12HR INESSA Administration Midazolam HCl 100 mg/ Sodium 100 mls @ 1 mls/hr 03/30/21 15:00 04/21/21 04:35 Chloride IV 7 mg/hr TITR INESSA 7 mls/hr Administration Protocol 1 MG/HR Vasopressin 20 unit/ Sodium 101 mls @ 9.09 mls/hr 03/30/21 20:00 04/18/21 02:04 Chloride IV 0.03 units/min TITR INESSA 9.09 mls/hr Administration 0.03 UNITS/MIN Phenylephrine HCl 100 mg/ 100 mls @ 3 mls/hr 03/31/21 04:00 04/06/21 07:58 Sodium Chloride IV 0 mcg/min TITR INESSA 0 mls/hr Titration Protocol 50 MCG/MIN Propofol 1,000 mg in 100 mls @ 4.26 mls/hr 04/07/21 13:00 04/12/21 12:52 Diprivan 10 Mg/Ml IV 0 mcg/kg/min TITR INESSA 0 mls/hr Titration Protocol 5 MCG/KG/MIN Sodium Chloride 1,000 mls @ 1 mls/hr 04/14/21 16:45 04/14/21 16:57 Nacl 0.9% 1000 Ml IV 1 mls/hr DIRECT INESSA Administration NORepinephrine/NS 8 MG-250 ML 8 mg in 250 mls @ 3.75 mls/hr 04/15/21 12:00 04/19/21 08:20 Norepinephrine/Ns 8 Mg-250 Ml (Double Conc) IV 3 mcg/min TITRATE INESSA 5.625 mls/hr Titration Protocol 2 MCG/MIN Fentanyl Citrate 2,000 mcg in 100 mls @ 7.1 mls/hr 04/15/21 13:00 04/21/21 09:10 Fentanyl Drip Premix IV 4 mcg/kg/hr TITR INESSA 28.4 mls/hr Administration Protocol 1 MCG/KG/HR Sodium Chloride 100 mls @ 999 mls/hr 04/18/21 14:26 Nacl 0.9% IV KARLOS PRN Hypotension Insulin Human Lispro 0 unit 03/14/21 12:00 04/21/21 06:21 Insulin Lispro 100 Unit/Ml SUB-Q Not Given Q6HR INESSA Protocol Lorazepam 1 mg 03/13/21 19:40 04/18/21 18:58 Lorazepam 2 Mg/Ml Vial IV 1 mg Q4H PRN Administration Anxiety Multi-Ingred Cream/Lotion/Oil/Oint 1 applic 03/14/21 17:50 04/16/21 23:02 Mineral Oil/Petrolatum, White Ophth Oint 3.5 Gm OU 1 applic Q4HR PRN Administration Dry Eye(s) Ondansetron HCl 4 mg 03/13/21 19:30 03/21/21 12:05 Ondansetron 4 Mg/2 Ml Inj IV 4 mg Q8H PRN Administration Nausea And Vomiting Quetiapine Fumarate 300 mg 04/06/21 22:00 04/21/21 10:49 Quetiapine 100 Mg Tab PO Not Given BID INESSA Senna/Docusate Sodium 1 tab 03/14/21 22:00 04/21/21 10:51 Sennosides/Docusate Sodium 8.6/50 Mg Tab FEEDTUBE Not Given BID INESSA Simple Syrup 15 ml 04/09/21 17:17 Simple Syrup 15 Ml FEEDTUBE PRN PRN Hypoglycemia Simple Syrup 30 ml 04/09/21 17:17 Simple Syrup 15 Ml FEEDTUBE PRN PRN Hypoglycemia Sodium Bicarbonate 325 mg 04/09/21 17:17 Sodium Bicarbonate 325 Mg Tab FEEDTUBE PRN PRN For Clogged Feeding Tube Sodium Chloride 10 ml 03/13/21 22:00 04/20/21 22:13 Sodium Chloride 0.9% 10 Ml Flush Syringe IV 10 ml BID INESSA Administration Sodium Chloride 10 ml 03/13/21 19:30 04/17/21 05:34 Sodium Chloride 0.9% 10 Ml Flush Syringe IV 10 ml PRN PRN Administration LINE FLUSH Nutrition/Malnutrition Assess - Dietary Evaluation Nutrition/Malnutrition Findings: Nutrition Notes Start: 03/15/21 11:06 Freq: Status: Active Protocol: Document 04/21/21 09:47 CANDACE (Rec: 04/21/21 10:25 CANDACE [id number]) Nutrition Notes Initial or Follow up Reassessment Current Diagnosis Acute Kidney Injury,Sepsis, Respiratory Failure Other Pertinent Diagnosis Pneu-COVID 19, Eosinophilia, Thrombocytopenia, Crohn's, Asthma. Current Diet NPO (since 04/21 00:01). Labs/Tests 04/21: BUN 83, Crea 2.5, Glu 133, Phos 6.6. Pertinent Medications 04/21: D50w 50 g in 50 ml Q 30 min PRN, Propofol 1,000 mg in 100 ml @ 4.26 ml/hr, others nutritionally unremarkable. Height 5 ft 5 in Weight 142 kg [place] Body Weight (kg) 56.81 BMI 52.0 Weight change and time frame No new reports on body weight changes, Weight Status Morbidly Obese Subjective/Other Information RD consult on NGT placement and TF advancement. Percent of energy/protein needs met: Pt currently on NPO. Burn Absent Trauma Absent GI Symptoms None Difficulty In Chewing Food Allergy No Skin Integrity/Comment Edematous, Scly, Erythema. Current % PO Other Minimum of two criteria No #1 Nutrition Diagnosis Swallowing difficulty,Biting/ Chewing (masticatory) difficulty Etiology Respiratory failure. As Evidenced by Signs and Symptoms Pt on mechancial ventilator. Diagnosis Progress(for reassessment Continues documentation) Is patient on ventilator? Yes Is Patient Ambulatory and/or Out of Bed No REE-([facility]-confined to bed) 2570.232 Kcal/Kg value to use for calculation 14 Approximate Energy Requirements Using 1988 kcal/Kg Calculation Used for Recommendations Kcal/kg Additional Notes Protein: >1.2g/kg adjBW: >117g /day Fluid: 1-1.5 L/day, or as per MD. Nutrition Intervention Change Diet Order: Continue NPO as per MD; when pertinent, advance to TF. Goal #1 Maintain body weight within +/ -3% of admission BWt during LOS. Goal #2 Reach and maintain acceptable chemistry lab values during LOS. Follow-Up By: 04/23/21 Additional Comments Continue monitoring Hydration, and BM; when pertinent, TF tolerance. <WESLEY LANCASTER - Last Filed: 04/22/21 08:56> Assessment and Plan Assessment and plan: I saw and evaluated the patient. I agree with the findings and the plan of care as documented in the Nurse Practitioner's~note, with the following corrections and additions. Hospitalist Physical - Constitutional Vitals: Temp Pulse Resp BP Pulse Ox 97.9 F 124 H 26 H 142/84 0 L 04/21/21 12:00 04/21/21 13:01 04/21/21 13:01 04/21/21 12:44 04/21/21 18:25 Results - Labs CBC & Chem 7: 04/21/21 04:00 04/21/21 04:00 Labs: Laboratory Last Values WBC 13.2 K/mm3 (4.5-11.0) H 04/21/21 04:00 RBC 2.65 M/mm3 (3.65-5.03) L 04/21/21 04:00 Hgb 8.2 gm/dl (10.1-14.3) L 04/21/21 04:00 Hct 25.0 % (30.3-42.9) L 04/21/21 04:00 MCV 94 fl (79-97) 04/21/21 04:00 MCH 31 pg (28-32) 04/21/21 04:00 MCHC 33 % (30-34) 04/21/21 04:00 RDW 16.8 % (13.2-15.2) H 04/21/21 04:00 Plt Count 115 K/mm3 (140-440) L 04/21/21 04:00 Lymph % (Auto) 10.7 % (13.4-35.0) L 03/28/21 09:37 [place] % (Auto) 5.2 % (0.0-7.3) 03/28/21 09:37 Eos % (Auto) [place] 04/07/21 03:50 Baso % (Auto) 0.2 % (0.0-1.8) 03/28/21 09:37 Lymph # (Auto) 1.7 K/mm3 (1.2-5.4) 03/28/21 09:37 [place] # (Auto) 0.9 K/mm3 (0.0-0.8) H 03/28/21 09:37 Eos # (Auto) 0.6 K/mm3 (0.0-0.4) H 03/28/21 09:37 Baso # (Auto) 0.0 K/mm3 (0.0-0.1) 03/28/21 09:37 Add Manual Diff Complete 04/17/21 04:42 Total Counted 100 04/17/21 04:42 Seg Neutrophils % 80.0 % (40.0-70.0) H 03/28/21 09:37 Seg Neuts % (Manual) 68.0 % (40.0-70.0) 04/17/21 04:42 Band Neutrophils % 4.0 % 04/17/21 04:42 Lymphocytes % (Manual) 10.0 % (13.4-35.0) L 04/17/21 04:42 Reactive Lymphs % (Man) 2.0 % 04/17/21 04:42 Monocytes % (Manual) 6.0 % (0.0-7.3) 04/17/21 04:42 Eosinophils % (Manual) 3.0 % (0.0-4.3) 04/17/21 04:42 Basophils % (Manual) 2.0 % (0.0-1.8) H 04/03/21 04:30 Metamyelocytes % 6.0 % 04/17/21 04:42 Myelocytes % 1.0 % 04/17/21 04:42 Nucleated RBC % Not Reportable 04/17/21 04:42 Seg Neutrophils # 13.0 K/mm3 (1.8-7.7) H 03/28/21 09:37 Seg Neutrophils # Man 9.6 K/mm3 (1.8-7.7) H 04/17/21 04:42 Band Neutrophils # 0.6 K/mm3 04/17/21 04:42 Lymphocytes # (Manual) 1.4 K/mm3 (1.2-5.4) 04/17/21 04:42 Abs React Lymphs (Man) 0.3 K/mm3 04/17/21 04:42 Monocytes # (Manual) 0.8 K/mm3 (0.0-0.8) 04/17/21 04:42 Eosinophils # (Manual) 0.4 K/mm3 (0.0-0.4) 04/17/21 04:42 Basophils # (Manual) 0.0 K/mm3 (0.0-0.1) 04/17/21 04:42 Metamyelocytes # 0.8 K/mm3 04/17/21 04:42 Myelocytes # 0.1 K/mm3 04/17/21 04:42 Promyelocytes # 0.0 K/mm3 04/17/21 04:42 Blast Cells # 0.0 K/mm3 04/17/21 04:42 WBC Morphology Not Reportable 04/17/21 04:42 Hypersegmented Neuts Not Reportable 04/17/21 04:42 Hyposegmented Neuts Not Reportable 04/17/21 04:42 Hypogranular Neuts Not Reportable 04/17/21 04:42 Smudge Cells Not Reportable 04/17/21 04:42 Toxic Granulation Not Reportable 04/17/21 04:42 Toxic Vacuolation Not Reportable 04/17/21 04:42 Dohle Bodies Not Reportable 04/17/21 04:42 Pelger-Huet Anomaly Not Reportable 04/17/21 04:42 Bridgette Rods Not Reportable 04/17/21 04:42 Platelet Estimate Consistent w auto 04/17/21 04:42 Clumped Platelets Not Reportable 04/17/21 04:42 Plt Clumps, EDTA Not Reportable 04/17/21 04:42 Large Platelets Not Reportable 04/17/21 04:42 Giant Platelets Few 04/17/21 04:42 Platelet Satelliting Not Reportable 04/17/21 04:42 Plt Morphology Comment Not Reportable 04/17/21 04:42 RBC Morphology Not Reportable 04/17/21 04:42 Dimorphic RBCs Not Reportable 04/17/21 04:42 Polychromasia Few 04/17/21 04:42 Hypochromasia Not Reportable 04/17/21 04:42 Poikilocytosis Not Reportable 04/17/21 04:42 Anisocytosis Not Reportable 04/17/21 04:42 Microcytosis Not Reportable 04/17/21 04:42 Macrocytosis Not Reportable 04/17/21 04:42 Spherocytes Few 04/17/21 04:42 Pappenheimer Bodies Not Reportable 04/17/21 04:42 Sickle Cells Not Reportable 04/17/21 04:42 Target Cells Not Reportable 04/17/21 04:42 Tear Drop Cells Not Reportable 04/17/21 04:42 Ovalocytes Not Reportable 04/17/21 04:42 Helmet Cells Not Reportable 04/17/21 04:42 [place] Bodies Not Reportable 04/17/21 04:42 [place] Rings Not Reportable 04/17/21 04:42 [place] Cells Not Reportable 04/17/21 04:42 Bite Cells Not Reportable 04/17/21 04:42 Crenated Cell Not Reportable 04/17/21 04:42 Elliptocytes Not Reportable 04/17/21 04:42 Acanthocytes (Spur) Not Reportable 04/17/21 04:42 Rouleaux Not Reportable 04/17/21 04:42 Hemoglobin C Crystals Not Reportable 04/17/21 04:42 Schistocytes Not Reportable 04/17/21 04:42 Malaria parasites Not Reportable 04/17/21 04:42 Percent Retic 4.52 % (0.78-2.58) H 03/31/21 09:49 Vaibhav Bodies Not Reportable 04/17/21 04:42 Hem Pathologist Commnt No 04/17/21 04:42 PT 16.1 Sec. (12.2-14.9) H 04/20/21 04:30 INR 1.17 (0.87-1.13) H 04/20/21 04:30 APTT 26.3 Sec. (24.2-36.6) 04/20/21 04:30 Fibrinogen 299 mg/dl (211-480) 04/20/21 04:30 D-Dimer 2696.79 ng/mlDDU (0-234) H 04/08/21 04:40 Heparin Anti-Xa, Unfract Negative (Negative) 04/14/21 09:45 ABG pH 7.467 pH Units (7.350-7.450) H 04/21/21 05:05 POC ABG pCO2 48.7 mmHg (32.0-48.0) H 04/19/21 03:09 ABG pCO2 34.1 mm Hg 04/21/21 05:05 POC ABG pO2 82.1 mmHg (83-108) L 04/19/21 03:09 ABG pO2 180.7 mm Hg (80.0-90.0) H 04/21/21 05:05 POC ABG HCO3 23.5 04/19/21 03:09 ABG HCO3 24.1 mmol/L (20.0-26.0) 04/21/21 05:05 ABG O2 Saturation 99.2 % (95.0-99.0) H 04/21/21 05:05 ABG O2 Content 12.1 (0.0-44) 04/21/21 05:05 POC ABG Base Excess -2.9 04/19/21 03:09 ABG Base Excess 0.5 mmol/L (-2.0-3.0) 04/21/21 05:05 ABG Hemoglobin 8.6 gm/dl (12.0-16.0) L 04/21/21 05:05 ABG Oxyhemoglobin 93.8 (94-98) L 04/19/21 03:09 ABG Carboxyhemoglobin 2.2 % (0.0-5.0) 04/21/21 05:05 ABG Methemoglobin 0.5 % (0.0-1.5) 04/21/21 05:05 ABG Sodium 133.9 mmol/L (136.0-145.0) L 04/19/21 03:09 ABG Potassium 5.2 mmol/L (3.40-4.50) H 04/19/21 03:09 ABG Chloride 101.0 mmol/L (98-107) 04/19/21 03:09 ABG Glucose 126 mg/dL (65-95) H 04/19/21 03:09 ABG Lactate Cancelled 04/03/21 20:45 Oxyhemoglobin 96.6 % (95.0-99.0) 04/21/21 05:05 Carboxyhemoglobin 1.1 (0.5-1.5) 04/19/21 03:09 FiO2 40 % 04/21/21 05:05 FiO2 % 40.0 04/19/21 03:09 Sodium 137 mmol/L (137-145) 04/21/21 04:00 Potassium 4.5 mmol/L (3.6-5.0) 04/21/21 04:00 Chloride 99.5 mmol/L (98-107) 04/21/21 04:00 Carbon Dioxide 24 mmol/L (22-30) 04/21/21 04:00 Anion Gap 18 mmol/L 04/21/21 04:00 BUN 83 mg/dL (7-17) H 04/21/21 04:00 Creatinine 2.5 mg/dL (0.6-1.2) H 04/21/21 04:00 Estimated GFR 27 ml/min 04/21/21 04:00 BUN/Creatinine Ratio 33 % 04/21/21 04:00 Glucose 133 mg/dL (65-100) H 04/21/21 04:00 POC Glucose 70 mg/dL (70-105) 04/21/21 11:50 Hemoglobin A1c 6.3 % (4-6) H 03/15/21 05:09 Lactic Acid 0.80 mmol/L (0.7-2.0) 04/07/21 03:50 Calcium 8.5 mg/dL (8.4-10.2) 04/21/21 04:00 Phosphorus 6.60 mg/dL (2.5-4.5) H D 04/21/21 04:00 Magnesium 1.90 mg/dL (1.7-2.3) 04/21/21 04:00 Ferritin 151.6 ng/mL (10.0-200.0) 03/18/21 04:30 Total Bilirubin 0.30 mg/dL (0.1-1.2) 04/17/21 10:58 Bilirubin Cancelled 04/03/21 20:45 AST 29 units/L (5-40) 04/17/21 10:58 ALT 44 units/L (7-56) 04/17/21 10:58 Alkaline Phosphatase 79 units/L (35-129) 04/17/21 10:58 Lactate Dehydrogenase 394 units/L (91-180) H 04/05/21 05:20 C-Reactive Protein 26.10 mg/dL (0.00-1.30) H 04/08/21 04:00 Total Protein 5.7 g/dL (6.3-8.2) L 04/17/21 10:58 Albumin 2.1 g/dL (3.9-5) L 04/17/21 10:58 Albumin/Globulin Ratio 0.6 % 04/17/21 10:58 Triglycerides 406 mg/dL (2-149) H 04/11/21 04:15 Serotonin Release Assay See sanned result 04/14/21 09:45 Procalcitonin < 0.05 ng/mL (<0.15) 03/13/21 15:40 HCG, Qual Negative (Negative) 03/13/21 13:26 Arterial Blood Glucose 126 mg/dL (65-95) H 04/19/21 03:09 Arterial Blood Ionized Calcium 4.4 mg/dL (4.6-5.3) L 04/18/21 00:08 Urine Color Sweta (Yellow) 04/15/21 18:35 Urine Turbidity Cloudy (Clear) 04/15/21 18:35 Urine pH 5.0 (5.0-7.0) 04/15/21 18:35 Ur Specific [place] 1.025 (1.003-1.030) 04/15/21 18:35 Urine Protein >500 mg/dL (Negative) 04/15/21 18:35 Urine Glucose (UA) Neg mg/dL (Negative) 04/15/21 18:35 Urine Ketones Neg mg/dL (Negative) 04/15/21 18:35 Urine Blood Mod (Negative) 04/15/21 18:35 Urine Nitrite Neg (Negative) 04/15/21 18:35 Urine Bilirubin Neg (Negative) 04/15/21 18:35 Urine Urobilinogen < 2.0 mg/dL (<2.0) 04/15/21 18:35 Ur Leukocyte Esterase Mod (Negative) 04/15/21 18:35 Urine WBC (Auto) 156.0 /HPF (0.0-6.0) H 04/15/21 18:35 Urine RBC (Auto) 56.0 /HPF (0.0-6.0) 04/15/21 18:35 U Epithel Cells (Auto) 15.0 /HPF (0-13.0) H 04/15/21 18:35 Urine Bacteria (Auto) 2+ /HPF (Negative) 04/15/21 18:35 Urine WBC Clumps 3+ /HPF 04/15/21 18:35 Ur Renal Epithelial Cell 151 /LPF 04/06/21 Unknown Urine Mucus Few /HPF 04/15/21 18:35 Urine Yeast (Budding) 3+ /HPF 04/15/21 18:35 Urine Creatinine 40.1 mg/dL (0.1-20.0) H 03/14/21 17:50 Urine Sodium 124 mmol/L 03/14/21 17:50 Random Vancomycin 11.9 ug/mL (0-40.0) 04/15/21 07:05 KIMBERLEY Screen Negative (Negative) 04/07/21 08:27 Heparin-induced Plt Ab Positive (Negative) H 04/14/21 09:45 UF Heparin High Dose 0 % Release 04/14/21 09:45 JUAN UFH Low Dose 0.1 1 % Release 04/14/21 09:45 JUAN UFH Low Dose 0.5 0 % Release 04/14/21 09:45 Coronavirus (PCR) Negative (Negative) 04/04/21 09:00 Hepatitis A IgM Ab Non-reactive (NonReactive) 03/15/21 05:09 Hep Bs Antigen Nonreactive (Negative) 03/15/21 05:09 Hep B Core IgM Ab Non-reactive (NonReactive) 03/15/21 05:09 Hepatitis C Antibody Non-reactive (NonReactive) 03/15/21 05:09 Schistocytes Smear None seen 03/31/21 12:11 Blood Type O POSITIVE 04/15/21 12:10 Antibody Screen Positive 04/15/21 12:10 Antibody Identification Anti-E 04/15/21 12:10 Direct Antiglob Test Negative 03/31/21 23:18 NIKOLE, Poly Interpret Negative 03/31/21 23:18 Crossmatch See Detail 04/15/21 12:10 [place]/IV: Voiding Method Incontinent Nutrition/Malnutrition Assess - Dietary Evaluation Nutrition/Malnutrition Findings: Nutrition Notes Start: 03/15/21 11:06 Freq: Status: Discharge Protocol: Document 04/21/21 09:47 CANDACE (Rec: 04/21/21 10:25 CANDACE [id number]) Nutrition Notes Initial or Follow up Reassessment Current Diagnosis Acute Kidney Injury,Sepsis, Respiratory Failure Other Pertinent Diagnosis Pneu-COVID 19, Eosinophilia, Thrombocytopenia, Crohn's, Asthma. Current Diet NPO (since 04/21 00:01). Labs/Tests 04/21: BUN 83, Crea 2.5, Glu 133, Phos 6.6. Pertinent Medications 04/21: D50w 50 g in 50 ml Q 30 min PRN, Propofol 1,000 mg in 100 ml @ 4.26 ml/hr, others nutritionally unremarkable. Height 5 ft 5 in Weight 142 kg [place] Body Weight (kg) 56.81 BMI 52.0 Weight change and time frame No new reports on body weight changes, Weight Status Morbidly Obese Subjective/Other Information RD consult on NGT placement and TF advancement. Percent of energy/protein needs met: Pt currently on NPO. Burn Absent Trauma Absent GI Symptoms None Difficulty In Chewing Food Allergy No Skin Integrity/Comment Edematous, Scly, Erythema. Current % PO Other Minimum of two criteria No #1 Nutrition Diagnosis Swallowing difficulty,Biting/ Chewing (masticatory) difficulty Etiology Respiratory failure. As Evidenced by Signs and Symptoms Pt on mechancial ventilator. Diagnosis Progress(for reassessment Continues documentation) Is patient on ventilator? Yes Is Patient Ambulatory and/or Out of Bed No REE-([facility]-confined to bed) 2570.232 Kcal/Kg value to use for calculation 14 Approximate Energy Requirements Using 1988 kcal/Kg Calculation Used for Recommendations Kcal/kg Additional Notes Protein: >1.2g/kg adjBW: >117g /day Fluid: 1-1.5 L/day, or as per MD. Nutrition Intervention Change Diet Order: Continue NPO as per MD; when pertinent, advance to TF. Goal #1 Maintain body weight within +/ -3% of admission BWt during LOS. Goal #2 Reach and maintain acceptable chemistry lab values during LOS. Follow-Up By: 04/23/21 Additional Comments Continue monitoring Hydration, and BM; when pertinent, TF tolerance.
--- NOTE | 2021-04-21 12:26 | Progress Note ---
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 + #Overall prognosis remains poor, palliative care appropriate Subjective Date of service: 04/21/21 Principal diagnosis: Ac hypoxemic resp failure; AE-Asthma; SAI; Crohn's; COVID- 19; Pneumonia Interval history: FiO2 40%, remains intubated, on 2 pressors (levo, vaso) Objective - Exam Narrative Exam: General appearance: Intubated and sedated, obese Head: NC/AT Neck: Absent: masses or JVD, cervical LAD Respiratory: coarse mechanical sounds Heart: Present: S1 & S2, mildly tachycardic Extremities: pulses intact, pulses symmetrical; 3+ edema Peripheral Pulses: within normal limits General gastrointestinal: soft, non-tender Integumentary: dry Neurologic: sedated - Vital Signs Vital signs: Vital Signs - 12hr 04/21/21 04/21/21 04/21/21 00:31 00:45 01:01 Temperature Pulse Rate 125 H 122 H 120 H Pulse Rate [ Bilateral Throughout] Pulse Rate [ From Monitor] Respiratory 30 H 30 H 29 H Rate Respiratory Rate [Bilateral Throughout] Blood Pressure O2 Sat by Pulse 98 99 99 Oximetry 04/21/21 04/21/21 04/21/21 01:15 01:31 01:45 Temperature Pulse Rate 121 H 119 H 118 H Pulse Rate [ Bilateral Throughout] Pulse Rate [ From Monitor] Respiratory 30 H 30 H 29 H Rate Respiratory Rate [Bilateral Throughout] Blood Pressure O2 Sat by Pulse 99 99 100 Oximetry 04/21/21 04/21/21 04/21/21 02:01 02:10 02:15 Temperature Pulse Rate 117 H 122 H Pulse Rate [ 121 H Bilateral Throughout] Pulse Rate [ From Monitor] Respiratory 31 H 25 H Rate Respiratory 30 H Rate [Bilateral Throughout] Blood Pressure O2 Sat by Pulse 99 99 Oximetry 04/21/21 04/21/21 04/21/21 02:31 02:45 03:01 Temperature Pulse Rate 116 H 116 H 115 H Pulse Rate [ Bilateral Throughout] Pulse Rate [ From Monitor] Respiratory 30 H 28 H 28 H Rate Respiratory Rate [Bilateral Throughout] Blood Pressure O2 Sat by Pulse 100 99 99 Oximetry 04/21/21 04/21/21 04/21/21 03:15 03:22 03:31 Temperature 99.0 F Pulse Rate 114 H 113 H Pulse Rate [ Bilateral Throughout] Pulse Rate [ From Monitor] Respiratory 26 H 30 H Rate Respiratory Rate [Bilateral Throughout] Blood Pressure O2 Sat by Pulse 99 99 Oximetry 04/21/21 04/21/21 04/21/21 03:45 04:00 04:01 Temperature Pulse Rate 114 H 120 H 122 H Pulse Rate [ Bilateral Throughout] Pulse Rate [ 123 H From Monitor] Respiratory 30 H 30 H 19 Rate Respiratory Rate [Bilateral Throughout] Blood Pressure O2 Sat by Pulse 99 100 99 Oximetry 04/21/21 04/21/21 04/21/21 04:15 04:31 04:45 Temperature Pulse Rate 119 H 120 H 122 H Pulse Rate [ Bilateral Throughout] Pulse Rate [ From Monitor] Respiratory 20 26 H 14 Rate Respiratory Rate [Bilateral Throughout] Blood Pressure O2 Sat by Pulse 100 100 99 Oximetry 04/21/21 04/21/21 04/21/21 05:01 05:06 05:15 Temperature Pulse Rate 117 H 115 H 112 H Pulse Rate [ Bilateral Throughout] Pulse Rate [ From Monitor] Respiratory 28 H 22 Rate Respiratory Rate [Bilateral Throughout] Blood Pressure 151/87 O2 Sat by Pulse 100 100 100 Oximetry 04/21/21 04/21/21 04/21/21 05:31 05:45 06:01 Temperature Pulse Rate 118 H 115 H 121 H Pulse Rate [ Bilateral Throughout] Pulse Rate [ From Monitor] Respiratory 22 25 H 26 H Rate Respiratory Rate [Bilateral Throughout] Blood Pressure O2 Sat by Pulse 100 100 100 Oximetry 04/21/21 04/21/21 04/21/21 06:15 06:31 06:45 Temperature Pulse Rate 112 H 117 H 114 H Pulse Rate [ Bilateral Throughout] Pulse Rate [ From Monitor] Respiratory 29 H 24 26 H Rate Respiratory Rate [Bilateral Throughout] Blood Pressure O2 Sat by Pulse 100 100 100 Oximetry 04/21/21 04/21/21 04/21/21 07:01 07:15 07:31 Temperature Pulse Rate 111 H 110 H 113 H Pulse Rate [ Bilateral Throughout] Pulse Rate [ From Monitor] Respiratory 26 H 27 H 25 H Rate Respiratory Rate [Bilateral Throughout] Blood Pressure O2 Sat by Pulse 100 100 100 Oximetry 04/21/21 04/21/21 04/21/21 07:45 08:00 08:01 Temperature 99.9 F H Pulse Rate 115 H 122 H 114 H Pulse Rate [ Bilateral Throughout] Pulse Rate [ 122 H From Monitor] Respiratory 30 H 30 H 26 H Rate Respiratory Rate [Bilateral Throughout] Blood Pressure O2 Sat by Pulse 100 100 100 Oximetry 04/21/21 04/21/21 04/21/21 08:15 08:30 08:31 Temperature Pulse Rate 118 H 117 H 116 H Pulse Rate [ Bilateral Throughout] Pulse Rate [ From Monitor] Respiratory 23 23 Rate Respiratory Rate [Bilateral Throughout] Blood Pressure 144/86 O2 Sat by Pulse 99 100 100 Oximetry 04/21/21 04/21/21 04/21/21 08:40 08:45 09:01 Temperature Pulse Rate 117 H 128 H Pulse Rate [ 122 H Bilateral Throughout] Pulse Rate [ From Monitor] Respiratory 22 24 Rate Respiratory 30 H Rate [Bilateral Throughout] Blood Pressure O2 Sat by Pulse 99 98 Oximetry 04/21/21 04/21/21 04/21/21 09:15 09:31 09:45 Temperature Pulse Rate 119 H 122 H 120 H Pulse Rate [ Bilateral Throughout] Pulse Rate [ From Monitor] Respiratory 23 27 H 29 H Rate Respiratory Rate [Bilateral Throughout] Blood Pressure O2 Sat by Pulse 99 99 100 Oximetry 04/21/21 04/21/21 04/21/21 10:01 10:15 10:31 Temperature Pulse Rate 117 H 114 H 121 H Pulse Rate [ Bilateral Throughout] Pulse Rate [ From Monitor] Respiratory 27 H 38 H 41 H Rate Respiratory Rate [Bilateral Throughout] Blood Pressure O2 Sat by Pulse 99 99 98 Oximetry 04/21/21 04/21/21 04/21/21 10:45 11:01 11:15 Temperature Pulse Rate 113 H 115 H 117 H Pulse Rate [ Bilateral Throughout] Pulse Rate [ From Monitor] Respiratory 27 H 30 H 20 Rate Respiratory Rate [Bilateral Throughout] Blood Pressure O2 Sat by Pulse 100 100 100 Oximetry - Lab 04/21/21 04:00 04/21/21 04:00 Most recent lab results ABG pH 7.467 pH Units (7.350-7.450) H 04/21/21 05:05 ABG pCO2 34.1 mm Hg 04/21/21 05:05 ABG pO2 180.7 mm Hg (80.0-90.0) H 04/21/21 05:05 ABG HCO3 24.1 mmol/L (20.0-26.0) 04/21/21 05:05 ABG O2 Saturation 99.2 % (95.0-99.0) H 04/21/21 05:05 Calcium 8.5 mg/dL (8.4-10.2) 04/21/21 04:00 Phosphorus 6.60 mg/dL (2.5-4.5) H D 04/21/21 04:00 Magnesium 1.90 mg/dL (1.7-2.3) 04/21/21 04:00 Urine Creatinine 40.1 mg/dL (0.1-20.0) H 03/14/21 17:50 Urine Sodium 124 mmol/L 03/14/21 17:50 Medications & Allergies - Medications Allergies/Adverse Reactions: Allergies oxycodone HCl [From Percocet] Allergy (Severe, Verified 03/30/21 14:01) Swelling cefepime Allergy (Verified 04/06/21 13:38) Rash hydrocodone bitartrate [From Vicodin] Allergy (Verified 03/31/21 08:20) Swelling ALLERGY TO TYLENOL VS OXYCODONE ACTIVE ORDER REMOVED FROM [facility] SINCE UNABLE TO CONFIRM WITH FAMILY Home Medications: Home Medications Medication Instructions Recorded Confirmed Last Taken Type Chlorhexidine Mouthwash [Peridex] 15 ml MM BID #1 bottle 10/11/20 03/13/21 Unknown Rx Clindamycin [Clindamycin CAP] 300 mg PO Q8H #21 cap 10/11/20 03/13/21 Unknown Rx Naproxen 500 mg PO Q12H PRN #12 tablet 10/11/20 03/13/21 Unknown Rx Butalb/Acetamin/Caff 50-325-40 1 - 2 tab PO Q6HR PRN #15 tab 12/05/20 03/13/21 Unknown Rx [Fioricet 50-325-40] Famotidine [Pepcid] 20 mg PO BID #30 tablet 12/05/20 03/13/21 Unknown Rx Ketorolac [Toradol] 10 mg PO Q8H PRN #20 tablet 12/05/20 03/13/21 Unknown Rx Ondansetron [Zofran Odt] 4 mg PO Q6HR PRN #20 tab.rapdis 12/05/20 03/13/21 Unknown Rx Albuterol Sulfate [Proair 90 mcg IH Q4HR PRN #2 [email or web address] 01/01/21 03/13/21 Unknown Rx Respiclick] Mupirocin [Bactroban 2% OINT] 1 applic TP BID 7 Days #1 tube 01/01/21 03/13/21 Unknown Rx Triamcinolone Aceton 0.1% (Nf) 1 applic TP BID 14 Days #1 tube 01/01/21 03/13/21 Unknown Rx [Kenalog (NF)] predniSONE [Deltasone] 40 mg PO QDAY #8 tab 01/01/21 03/13/21 Unknown Rx Active Medications: Generic Name Dose Route Start Last Admin Trade Name Freq PRN Reason Stop Dose Admin Acetaminophen 650 mg 03/31/21 12:41 04/20/21 22:19 Acetaminophen 325 Mg/10.15 Ml Oral Liqd Unit Dose FEEDTUBE 650 mg Q6H PRN Administration TEMP >/=100.4 Albumin Human 25 gm 04/01/21 08:19 04/01/21 16:23 Albumin Human 25% (25 Gm/100 Ml) Inj IV 25 gm KARLOS PRN Administration Hypotension Albuterol 2.5 mg 03/19/21 00:53 Albuterol 2.5 Mg/3 Ml Nebu IH Q4HRT PRN Shortness Of Breath Albuterol/Ipratropium 1 ampul 03/19/21 08:00 04/21/21 08:40 Ipratropium/Albuterol Sulfate 3 Ml Ampul.Neb IH 1 ampul Q6HRT INESSA Administration Lipase/Protease/Amylase 1 each 04/09/21 17:17 Lipase 10,500/Protease 25,000/Amylase 43,750 (Units) Cap FEEDTUBE PRN PRN For Clogged Feeding Tube Calcium Acetate 1,334 mg 04/03/21 20:00 04/21/21 10:51 Calcium Acetate 667 Mg Cap FEEDTUBE Not Given TID INESSA Dextrose 50 ml 03/14/21 11:02 03/15/21 11:40 Dextrose 50% In Water (25gm) 50 Ml Syringe IV 50 ml Q30MIN PRN Administration Hypoglycemia Protocol Famotidine 10 mg 03/17/21 22:00 04/21/21 10:51 Famotidine 10 Mg Tab PO Not Given BID INESSA Fentanyl 50 mcg 04/15/21 11:48 04/18/21 18:58 Fentanyl 100 Mcg/2 Ml Inj IV 50 mcg Q10MIN PRN Administration ANALGESIA Hydrocortisone Sodium Succinate 50 mg 04/18/21 10:00 04/21/21 10:53 Hydrocortisone Sod Succ 100 Mg/2 Ml Vial IV 04/21/21 22:01 50 mg Q12H INESSA Administration Hydrocortisone Sodium Succinate 25 mg 04/22/21 10:00 Hydrocortisone Sod Succ 100 Mg/2 Ml Vial IV 04/25/21 09:59 QDAY INESSA Hydrophilic Ointment 1 applic 03/14/21 17:50 04/18/21 19:02 Lip Therapy Vaseline TP 1 applic Q2HR PRN Administration Dry Lips Hydrophilic Ointment 1 applic 04/15/21 13:00 04/21/21 11:01 Aquaphor Ointment TP 1 applic Q12HR INESSA Administration Midazolam HCl 100 mg/ Sodium 100 mls @ 1 mls/hr 03/30/21 15:00 04/21/21 04:35 Chloride IV 7 mg/hr TITR INESSA 7 mls/hr Administration Protocol 1 MG/HR Vasopressin 20 unit/ Sodium 101 mls @ 9.09 mls/hr 03/30/21 20:00 04/18/21 02:04 Chloride IV 0.03 units/min TITR INESSA 9.09 mls/hr Administration 0.03 UNITS/MIN Phenylephrine HCl 100 mg/ 100 mls @ 3 mls/hr 03/31/21 04:00 04/06/21 07:58 Sodium Chloride IV 0 mcg/min TITR INESSA 0 mls/hr Titration Protocol 50 MCG/MIN Propofol 1,000 mg in 100 mls @ 4.26 mls/hr 04/07/21 13:00 04/12/21 12:52 Diprivan 10 Mg/Ml IV 0 mcg/kg/min TITR INESSA 0 mls/hr Titration Protocol 5 MCG/KG/MIN Sodium Chloride 1,000 mls @ 1 mls/hr 04/14/21 16:45 04/14/21 16:57 Nacl 0.9% 1000 Ml IV 1 mls/hr DIRECT INESSA Administration NORepinephrine/NS 8 MG-250 ML 8 mg in 250 mls @ 3.75 mls/hr 04/15/21 12:00 04/19/21 08:20 Norepinephrine/Ns 8 Mg-250 Ml (Double Conc) IV 3 mcg/min TITRATE INESSA 5.625 mls/hr Titration Protocol 2 MCG/MIN Fentanyl Citrate 2,000 mcg in 100 mls @ 7.1 mls/hr 04/15/21 13:00 04/21/21 09:10 Fentanyl Drip Premix IV 4 mcg/kg/hr TITR INESSA 28.4 mls/hr Administration Protocol 1 MCG/KG/HR Sodium Chloride 100 mls @ 999 mls/hr 04/18/21 14:26 Nacl 0.9% IV KARLOS PRN Hypotension Insulin Human Lispro 0 unit 03/14/21 12:00 04/21/21 06:21 Insulin Lispro 100 Unit/Ml SUB-Q Not Given Q6HR INESSA Protocol Lorazepam 1 mg 03/13/21 19:40 04/18/21 18:58 Lorazepam 2 Mg/Ml Vial IV 1 mg Q4H PRN Administration Anxiety Multi-Ingred Cream/Lotion/Oil/Oint 1 applic 03/14/21 17:50 04/16/21 23:02 Mineral Oil/Petrolatum, White Ophth Oint 3.5 Gm OU 1 applic Q4HR PRN Administration Dry Eye(s) Ondansetron HCl 4 mg 03/13/21 19:30 03/21/21 12:05 Ondansetron 4 Mg/2 Ml Inj IV 4 mg Q8H PRN Administration Nausea And Vomiting Quetiapine Fumarate 300 mg 04/06/21 22:00 04/21/21 10:49 Quetiapine 100 Mg Tab PO Not Given BID INESSA Senna/Docusate Sodium 1 tab 03/14/21 22:00 04/21/21 10:51 Sennosides/Docusate Sodium 8.6/50 Mg Tab FEEDTUBE Not Given BID INESSA Simple Syrup 15 ml 04/09/21 17:17 Simple Syrup 15 Ml FEEDTUBE PRN PRN Hypoglycemia Simple Syrup 30 ml 04/09/21 17:17 Simple Syrup 15 Ml FEEDTUBE PRN PRN Hypoglycemia Sodium Bicarbonate 325 mg 04/09/21 17:17 Sodium Bicarbonate 325 Mg Tab FEEDTUBE PRN PRN For Clogged Feeding Tube Sodium Chloride 10 ml 03/13/21 22:00 04/21/21 11:04 Sodium Chloride 0.9% 10 Ml Flush Syringe IV 10 ml BID INESSA Administration Sodium Chloride 10 ml 03/13/21 19:30 04/17/21 05:34 Sodium Chloride 0.9% 10 Ml Flush Syringe IV 10 ml PRN PRN Administration LINE FLUSH
[2021-04-21] MEDS ORDERED: LIDOCAINE 1%/EPINEPHRINE 1:100,000 VIAL (20 ML) INFILTRATI ONE (12:48)
[2021-04-21 12:49] VITALS: BP 142/84
[2021-04-21] MEDS: DEXTROSE 50% IN WATER (25GM) 50 ML SYRINGE IV PRN (12:52)
[2021-04-21] MEDS ORDERED: SODIUM BICARB 8.4% 50 MEQ/50 ML SYRINGE IV ONE (14:00)
[2021-04-21] MEDS ORDERED: EPINEPHrine 1 MG/10 ML SYRINGE ONE ×2 (14:00→16:33)
[2021-04-21] MEDS ORDERED: ATROPINE 0.1% (1 MG/10 ML) CARDIAC SYRINGE ONE (14:00)
--- NOTE | 2021-04-21 15:10 | Progress Note ---
Assessment and Plan Cultures: SARS CoV2 PCR: Positive 03/13/2021 blood culture: No growth Resp cultures 03/14/2021: MSSA 03/23/2021 blood culture: No growth 03/23/2021 sputum culture: Usual respiratory maury 03/29/2021 blood culture: no growth 04/06/2021 blood culture: In process 04/06/2021 endotracheal aspirate culture: E faecalis 04/06/2021 urine culture: No growth A/P: 31-year-old female with asthma, morbid obesity, Crohn's disease admitted with cough and shortness of breath: #Septic shock: s/p abx. Persistently febrile, on multiple pressors. Has previously completed Ancef followed by Cefepime, and now on Aztreonam, Vancomycin and levofloxacin. #Bilateral pneumonia: Secondary to COVID-19. Severe disease, then developed MSSA in the lungs. s/p Actemra 03/15/2021, completed steroids for COVID. D-dimer very high initially, which has shown improvement. #Acute hypoxic respiratory failure: on the vent. #Rash with eosinophilia: Question of drug reaction, remains off Cefepime. 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 #Acute renal failure: progressive. Nephrology following, on HD. #Acute asthma exacerbation #Morbid obesity Recs: -Completed empiric broad specturm antibiotics and anti-fungals without improvement. -At this point I doubt there is much less to offer from an ID standpoint. -on steroids per ICU -Unable to complete CT -extremely poor prognosis, recommend palliative care GEloisa Ling MD [facility] ([facility] O: [phone] F: [phone] Subjective Date of service: 04/21/21 Principal diagnosis: Ac hypoxemic resp failure; AE-Asthma; SAI; Crohn's; COVID- 19; Pneumonia Interval history: Afebrile overnight, white count 13.2. Had trach and PEG done today. Objective - Exam Narrative Exam: Physical exam deferred to reduce risk of transmission of COVID-19. Please refer to primary team's note. - Constitutional Vitals: Vital Signs Temp Pulse Resp BP Pulse Ox 97.9 F 118 H 20 142/84 100 04/21/21 12:00 04/21/21 12:44 04/21/21 11:15 04/21/21 12:44 04/21/21 12:44 Temperature -Last 24 Hours Temperature 97.9 F Temperature 99.9 F Temperature 99.0 F Temperature 98.6 F Temperature 98.8 F Temperature 98.8 F Temperature 98.1 F Temperature 98.1 F - Labs CBC & Chem 7: 04/21/21 04:00 04/21/21 04:00 Labs: Abnormal lab results 04/20/21 04/20/21 04/21/21 Range/Units 17:22 23:14 04:00 WBC 13.2 H (4.5-11.0) K/mm3 RBC 2.65 L (3.65-5.03) M/mm3 Hgb 8.2 L (10.1-14.3) gm/dl Hct 25.0 L (30.3-42.9) % RDW 16.8 H (13.2-15.2) % Plt Count 115 L (140-440) K/mm3 ABG pH (7.350-7.450) pH Units ABG pO2 (80.0-90.0) mm Hg ABG O2 Saturation (95.0-99.0) % ABG Hemoglobin (12.0-16.0) gm/dl BUN (7-17) mg/dL Creatinine (0.6-1.2) mg/dL Glucose (65-100) mg/dL POC Glucose 146 H 136 H (70-105) mg/dL Phosphorus (2.5-4.5) mg/dL 04/21/21 04/21/21 04/21/21 Range/Units 04:00 05:05 05:28 WBC (4.5-11.0) K/mm3 RBC (3.65-5.03) M/mm3 Hgb (10.1-14.3) gm/dl Hct (30.3-42.9) % RDW (13.2-15.2) % Plt Count (140-440) K/mm3 ABG pH 7.467 H (7.350-7.450) pH Units ABG pO2 180.7 H (80.0-90.0) mm Hg ABG O2 Saturation 99.2 H (95.0-99.0) % ABG Hemoglobin 8.6 L (12.0-16.0) gm/dl BUN 83 H (7-17) mg/dL Creatinine 2.5 H (0.6-1.2) mg/dL Glucose 133 H (65-100) mg/dL POC Glucose 109 H (70-105) mg/dL Phosphorus 6.60 H D (2.5-4.5) mg/dL
[2021-04-21] MEDS ORDERED: SODIUM CHLORIDE 0.9% IRR 1,500 ML BOTTLE IR ONE (15:15)
[2021-04-21] MEDS ORDERED: ROCURONIUM 50 MG/5 ML INJ IV ONE (16:33)
--- NOTE | 2021-04-21 17:40 | Procedure Note ---
Date of procedure: 04/21/21 Pre-op diagnosis: Chronic respiratory failure Post-op diagnosis: same Procedure: Attempted percutaneous tracheostomy followed by open tracheostomy Description of procedure: Pt was transferred intubated to the OR table. A large shoulder roll was placed so as to facilitate maximal neck extension. Two inch silk tape was also passed from the table and around her upper chin to maximize exposure of the neck. Lower face, neck and upper chest were prepped and draped. Pt's suprasternal notch was palpated and marked. Skin and SQ tissue about 3 cm were infiltrated with 5 ml of 1% Lidocaine with epinephrine. A 3 cm transverse collar incision was made. SQ tissue was with a hemostat. Trachea was palpated through the incision. Bronchoscopy via the ET tube was performed by Dr. Yeboah. The introducer needle was advanced into the trachea on the first pass. The guide wire was then passed through the introducer needle and the guide wire visualized bronchoscopically. The trachea was first dilated with the smallest dilator sheath. Subsequent attempts to pass larger dilators were unsuccessful and because of this, percutaneous placement was aborted. The previous collar incision was lengthened bilaterally. Subcutaneous tissue was divided with the Bovie. Deep cervical fascia was divided in the midline. Strap muscles were freed up laterally. Trachea was exposed and the second tracheal ring identified. At this point, I informed anesthesia that I was about to enter the trachea and the pt's FIO2 was decreased to 0.3. An H type incision was made in the 2nd tracheal ring. The ET tube was slowly removed under direct vision to a point just cephalad to the tracheotomy. A #8 Shiley, cuffed, fenestrated tracheostomy tube was inserted into the trachea without difficulty. The tracheostomy tube was attached to the ventilator. Pt maintained good oxygenation but end tidal CO2's were not appropriate. Dr. Yeboah and the [facility] attempted several maneuvers to identify the source of this issue including performing a bronchoscopy via the tracheostomy which confirmed the tracheostomy tube to be within the trachea. The tracheostomy cuff was also deflated and the tracheostomy tube maximally advanced without improvement in the end tidal CO2's. The pt remained intubated throughout the vast majority of all these maneuvers and her O2 sats remained at or above 89% throughout. At this point, the pt's BP dropped dramatically and she appeared to be pulseless. A code was initiated and run by Dr. Yeboah to no avail. The code was finally called after an extensive effort to regain spontaneous circulation. Anesthesia: BRENNONA Surgeon: VIJAY LIND Estimated blood loss: 50-100ml Pathology: none Condition: stable Disposition: other (Pt coded during the procedure and could not be resuscitated.)
--- NOTE | 2021-04-21 17:44 | Anesthesia Consultation ---
Anesthesia Consult and Med Hx Date of service: 04/21/21 - Airway Intubation Access Assessment: Possibly Difficult (oETT in situ; previous easy intuabtion per EMR documentation) - Pulmonary Exam CTA: No - Cardiac Exam Cardiac Exam: RRR (tachycardic) - Pre-Operative Health Status ASA Pre-Surgery Classification: ASA4 Proposed Anesthetic Plan: General - Pulmonary Hx Asthma: Yes (hx exacerbations requiring intubation in the past) Hx Respiratory Symptoms: Yes (vent dependent resp failure intubated 03/14) Hx Pneumonia: Yes (COVID PNA) - Cardiovascular System Hx Hypertension: No - Central Nervous System CVA: No - Gastrointestinal Hx Gastroesophageal Reflux Disease: No (Crohn's disease) - Endocrine Hx Renal Disease: Yes (acute renal failure; last HD 04/20/21) Hx Liver Disease: No Hx Non-Insulin Dependent Diabetes: Yes (prior hx pre-DM; hyperglycemic this admission) - Hematic Hx Anemia: Yes (w/ thrombocytopenia) - Other Systems Hx Obesity: Yes (BMI 52) - Additional Comments Anesthesia Medical History Comments: Late entry; patient evaluated prior to procedure. Patient is scheduled for trach/PEG in OR. Spoke w/ patient's mother via telephone on 04/20/21 to confirm past medical history and to obtain consent for anesthesia.
--- NOTE | 2021-04-21 17:45 | Anesthesia Day of Surgery ---
Anesthesia Day of Surgery - Day of Surgery Patient Examined: Yes Patient H&P Reviewed: Yes Patient is NPO: Yes
--- NOTE | 2021-04-21 18:04 | Event Note ---
Date: 04/21/21 Patient arrived to OR for planned trach/PEG under [facility]. After tracheostomy placement, EtCO2 was noted to be near zero and inspiratory pressures were increased which suggested tracheostomy tube may be outside the tracheal lumen. SpO2 maintained >88% however patient developed hypotension and bradycardia which devolved into PEA arrest. Tracheostomy tube was removed, patient was orally intubated easily via DL w/ MAC 3, chest compressions were initiated and CODE BLUE was called at 1627. Inhaled anesthetic and IV sedatives were d/c'd at this time. Endotracheal intubation was confirmed via direct visualization and consistent EtCO2 on continuous capnopgraphy. Despite multiple rounds of epinephrine, bicarbonate, and chest compressions, patient remained in PEA arrest. At 1646, rhythm check showed Vfib and 1 - 200J shock was delivered via defibrillator. On next rhythm check, patient was again noted to be in PEA arrest. All reversible causes for arrest were considered however resuscitation was unsuccessful. Patient was pronounced at 1650. Patient's family was notified by surgeon.
--- NOTE | 2021-04-21 19:23 | Progress Note ---
Assessment and Plan Acute hypoxemic respiratory failure Acute asthma exacerbation Morbid obesity Crohn's disease Metabolic acidosis Acute kidney injury Coronavirus infection Pneumonia (CAP) Oropharyngeal dysphagia Obesity, if not mentioned above - will reduce set minute ventilation in am re: shavonne-operative monitoring - to OR later today - may soon need antihypertensive therapy but will await post-op numbers - keep peep at 8 cm H2O - continue care as below otherwise; - HD/UF per nephrology prescription for toxin and volume clearance - wean vasopressors for target MAP > 65 mmHg - nephrology input appreciated; HD/UF for toxin and volume clearance - continue Daily SAT and SBT assessment as tolerated - continue to wean supplemental oxygen for target O2 sat's > 90% acutely - VAP bundle addressed - continue lung protective strategies - continue bronchodilators with pulmonary hygiene per RT - wean per pulmonary driven protocols otherwise - continue accuchecks with glycemic control per SSI (While critically ill target blood glucose of 140-180 mg/dL; avoid hypoglycemia) - sedation prn for target RASS 0 to -1 - avoid nephrotoxins, renally dose all medications - continue to avoid benzodiazepine's, reduce the possibility of delirium - de-escalate AB's per ID rec's - prn analgesia per CPOT score - Maintenance of sleep-wake cycle, avoid delirium - continue enteral nutritional support at goal rate as tolerated - G.I. & VTE prophylaxis - PT/OT/ROM exercises - continue mobility protocols for pressure ulcer prophylaxis - Monitor hemodynamics closely - continue other care per attending / other consultants - discharge planning ongoing concurrently COVID SPECIFIC INTERVENTIONS - Isolation discontinued - s/p Actemra - Remdesivir as per ID/Pulmonary developed protocols (not a candidate) - continue systemic steroids for severe COVID-19 infection empirically - repeat COVID tests result negative - zinc and vitamin C supplementation - Monitor inflammatory markers per facility protocol - ferritin, Ddimer, CRP - therapeutic anticoagulation per system Protocol based on d-dimer and clinical considerations (VTE prophylaxis) - Continue contact and airborne isolation .... Re-evaluate in am & prn CONDITION: CRITICAL PROGNOSIS: GUARDED CODE STATUS: FULL CODE The high probability of a clinically significant, sudden or life-threatening deterioration of the [respiratory, cardiovascular, renal & neurologic] system(s) required my full and direct attention, intervention and personal management. The aggregate critical care time was [32] minutes without overlap. Time includes spent on; [x] Data Review and interpretation [x] Patient assessment and monitoring of vital signs [x] Documentation [x] Medication orders and management Subjective Date of service: 04/21/21 Principal diagnosis: Ac hypoxemic resp failure; AE-Asthma; SAI; Crohn's; COVID-19; Pneumonia Interval history: Patient is seen today for: Acute hypoxemic respiratory failure; AE-Asthma; SAI; Crohn's disease; COVID-19 infection; Pneumonia (CAP) Seen and examined at bedside; 24hour events reviewed; nursing and respiratory care staff consulted; no adverse overnight events reported to me; resting in bed; remains on MVS; continues to do better hemodynamically; remains off vasopressors; a little more alert and opening eyes spontaneously; to OR later today; remains NPO; now getting hypertensive actually Objective Vital Signs - 12hr 04/21/21 04/21/21 04/21/21 07:31 07:45 08:00 Temperature 99.9 F H Pulse Rate 113 H 115 H 122 H Pulse Rate [ Bilateral Throughout] Pulse Rate [ 122 H From Monitor] Respiratory 25 H 30 H 30 H Rate Respiratory Rate [Bilateral Throughout] Blood Pressure O2 Sat by Pulse 100 100 100 Oximetry 04/21/21 04/21/21 04/21/21 08:01 08:15 08:30 Temperature Pulse Rate 114 H 118 H 117 H Pulse Rate [ Bilateral Throughout] Pulse Rate [ From Monitor] Respiratory 26 H 23 Rate Respiratory Rate [Bilateral Throughout] Blood Pressure 144/86 O2 Sat by Pulse 100 99 100 Oximetry 04/21/21 04/21/21 04/21/21 08:31 08:40 08:45 Temperature Pulse Rate 116 H 117 H Pulse Rate [ 122 H Bilateral Throughout] Pulse Rate [ From Monitor] Respiratory 23 22 Rate Respiratory 30 H Rate [Bilateral Throughout] Blood Pressure O2 Sat by Pulse 100 99 Oximetry 04/21/21 04/21/21 04/21/21 09:01 09:15 09:31 Temperature Pulse Rate 128 H 119 H 122 H Pulse Rate [ Bilateral Throughout] Pulse Rate [ From Monitor] Respiratory 24 23 27 H Rate Respiratory Rate [Bilateral Throughout] Blood Pressure O2 Sat by Pulse 98 99 99 Oximetry 04/21/21 04/21/21 04/21/21 09:45 10:01 10:15 Temperature Pulse Rate 120 H 117 H 114 H Pulse Rate [ Bilateral Throughout] Pulse Rate [ From Monitor] Respiratory 29 H 27 H 38 H Rate Respiratory Rate [Bilateral Throughout] Blood Pressure O2 Sat by Pulse 100 99 99 Oximetry 04/21/21 04/21/21 04/21/21 10:31 10:45 11:01 Temperature Pulse Rate 121 H 113 H 115 H Pulse Rate [ Bilateral Throughout] Pulse Rate [ From Monitor] Respiratory 41 H 27 H 30 H Rate Respiratory Rate [Bilateral Throughout] Blood Pressure O2 Sat by Pulse 98 100 100 Oximetry 04/21/21 04/21/21 04/21/21 11:15 11:31 11:45 Temperature Pulse Rate 117 H 118 H 119 H Pulse Rate [ Bilateral Throughout] Pulse Rate [ From Monitor] Respiratory 20 14 22 Rate Respiratory Rate [Bilateral Throughout] Blood Pressure O2 Sat by Pulse 100 100 100 Oximetry 04/21/21 04/21/21 04/21/21 12:00 12:01 12:15 Temperature 97.9 F Pulse Rate 124 H 118 H 118 H Pulse Rate [ Bilateral Throughout] Pulse Rate [ 124 H From Monitor] Respiratory 30 H 16 13 Rate Respiratory Rate [Bilateral Throughout] Blood Pressure O2 Sat by Pulse 100 100 100 Oximetry 04/21/21 04/21/21 04/21/21 12:31 12:44 12:45 Temperature Pulse Rate 116 H 118 H 117 H Pulse Rate [ Bilateral Throughout] Pulse Rate [ From Monitor] Respiratory 20 14 Rate Respiratory Rate [Bilateral Throughout] Blood Pressure 142/84 O2 Sat by Pulse 100 100 99 Oximetry 04/21/21 04/21/21 04/21/21 13:01 14:13 14:15 Temperature Pulse Rate 124 H Pulse Rate [ Bilateral Throughout] Pulse Rate [ From Monitor] Respiratory 26 H Rate Respiratory Rate [Bilateral Throughout] Blood Pressure O2 Sat by Pulse 100 95 96 Oximetry 04/21/21 18:25 Temperature Pulse Rate Pulse Rate [ Bilateral Throughout] Pulse Rate [ From Monitor] Respiratory Rate Respiratory Rate [Bilateral Throughout] Blood Pressure O2 Sat by Pulse 0 L Oximetry Constitutional: no acute distress, other (morbidly obese female with mild ventilator dyssynchrony) Eyes: non-icteric, other (scleral erythema improved) ENT: oropharynx moist, other (ETT 25 cm BALJINDER) Neck: supple, no lymphadenopathy, no JVD, other (large circumference) Effort: mildly labored Ascultation: Bilateral: diminished breath sounds, rhonchi (scant) Percussion: Bilateral: not dull Cardiovascular: regular rate and rhythm Gastrointestinal: normoactive bowel sounds, soft, non-tender, non-distended (protuberant) Integumentary: rash (now scaling / drying), other Extremities: no cyanosis, pulses normal, no ischemia or petechiae, edema (1+) Neurologic: pupils equal and round, CN II-XII normal, other (unasble to assess re: AMS) Psychiatric: other (unasble to assess) CBC and BMP: 04/21/21 04:00 04/21/21 04:00 ABG, PT/INR, D-dimer: ABG ABG pH 7.467 pH Units (7.350-7.450) H 04/21/21 05:05 POC ABG pCO2 48.7 mmHg (32.0-48.0) H 04/19/21 03:09 ABG pCO2 34.1 mm Hg 04/21/21 05:05 POC ABG pO2 82.1 mmHg (83-108) L 04/19/21 03:09 ABG pO2 180.7 mm Hg (80.0-90.0) H 04/21/21 05:05 POC ABG HCO3 23.5 04/19/21 03:09 ABG O2 Saturation 99.2 % (95.0-99.0) H 04/21/21 05:05 PT/INR, D-dimer PT 16.1 Sec. (12.2-14.9) H 04/20/21 04:30 INR 1.17 (0.87-1.13) H 04/20/21 04:30 D-Dimer 2696.79 ng/mlDDU (0-234) H 04/08/21 04:40 Abnormal lab findings: Abnormal Labs 03/13/21 03/13/21 03/13/21 13:26 13:26 15:40 WBC RBC Hgb Hct MCH 27 L MCHC RDW 17.0 H Plt Count Lymph % (Auto) [place] # (Auto) Eos # (Auto) Seg Neutrophils % Lymphocytes % (Manual) Eosinophils % (Manual) Basophils % (Manual) Nucleated RBC % Seg Neutrophils # Seg Neutrophils # Man Lymphocytes # (Manual) Monocytes # (Manual) Eosinophils # (Manual) Basophils # (Manual) Percent Retic PT INR Fibrinogen D-Dimer ABG pH POC ABG pCO2 POC ABG pO2 ABG pO2 ABG HCO3 ABG O2 Saturation ABG Base Excess ABG Hemoglobin ABG Oxyhemoglobin ABG Sodium ABG Potassium ABG Chloride ABG Glucose Oxyhemoglobin Carboxyhemoglobin Sodium 136 L Potassium Chloride Carbon Dioxide BUN Creatinine Glucose 125 H 130 H POC Glucose Hemoglobin A1c Calcium Phosphorus Magnesium AST ALT Alkaline Phosphatase Lactate Dehydrogenase 235 H C-Reactive Protein 4.30 H Total Protein Albumin Triglycerides Arterial Blood Glucose Arterial Blood Ionized Calcium Urine WBC (Auto) U Epithel Cells (Auto) Urine Creatinine Random Vancomycin Heparin-induced Plt Ab Coronavirus (PCR) Crossmatch 03/13/21 03/14/21 03/14/21 21:33 03:35 06:21 WBC 20.0 H RBC Hgb Hct MCH 27 L MCHC RDW 17.5 H Plt Count Lymph % (Auto) 7.8 L [place] # (Auto) 1.3 H Eos # (Auto) Seg Neutrophils % 85.4 H Lymphocytes % (Manual) Eosinophils % (Manual) Basophils % (Manual) Nucleated RBC % Seg Neutrophils # 17.1 H Seg Neutrophils # Man Lymphocytes # (Manual) Monocytes # (Manual) Eosinophils # (Manual) Basophils # (Manual) Percent Retic PT INR Fibrinogen D-Dimer ABG pH 7.323 L 7.234 L POC ABG pCO2 POC ABG pO2 ABG pO2 69.8 L ABG HCO3 ABG O2 Saturation 92.9 L 94.9 L ABG Base Excess -3.3 L -5.4 L ABG Hemoglobin ABG Oxyhemoglobin ABG Sodium ABG Potassium ABG Chloride ABG Glucose Oxyhemoglobin 91.2 L 93.2 L Carboxyhemoglobin Sodium Potassium Chloride Carbon Dioxide BUN Creatinine Glucose POC Glucose Hemoglobin A1c Calcium Phosphorus Magnesium AST ALT Alkaline Phosphatase Lactate Dehydrogenase C-Reactive Protein Total Protein Albumin Triglycerides Arterial Blood Glucose Arterial Blood Ionized Calcium Urine WBC (Auto) U Epithel Cells (Auto) Urine Creatinine Random Vancomycin Heparin-induced Plt Ab Coronavirus (PCR) Crossmatch 03/14/21 03/14/21 03/14/21 06:21 07:47 11:21 WBC RBC Hgb Hct MCH MCHC RDW Plt Count Lymph % (Auto) [place] # (Auto) Eos # (Auto) Seg Neutrophils % Lymphocytes % (Manual) Eosinophils % (Manual) Basophils % (Manual) Nucleated RBC % Seg Neutrophils # Seg Neutrophils # Man Lymphocytes # (Manual) Monocytes # (Manual) Eosinophils # (Manual) Basophils # (Manual) Percent Retic PT INR Fibrinogen D-Dimer ABG pH POC ABG pCO2 POC ABG pO2 ABG pO2 ABG HCO3 ABG O2 Saturation ABG Base Excess ABG Hemoglobin ABG Oxyhemoglobin ABG Sodium ABG Potassium ABG Chloride ABG Glucose Oxyhemoglobin Carboxyhemoglobin Sodium 136 L 136 L Potassium 6.2 H* D 5.4 H Chloride Carbon Dioxide 21 L 21 L BUN Creatinine 1.5 H D 1.8 H Glucose 144 H 141 H POC Glucose 147 H Hemoglobin A1c Calcium Phosphorus Magnesium AST ALT Alkaline Phosphatase Lactate Dehydrogenase C-Reactive Protein Total Protein 8.7 H 9.2 H Albumin 3.8 L Triglycerides Arterial Blood Glucose Arterial Blood Ionized Calcium Urine WBC (Auto) U Epithel Cells (Auto) Urine Creatinine Random Vancomycin Heparin-induced Plt Ab Coronavirus (PCR) Crossmatch 03/14/21 03/14/21 03/14/21 17:29 17:50 18:35 WBC RBC Hgb Hct MCH MCHC RDW Plt Count Lymph % (Auto) [place] # (Auto) Eos # (Auto) Seg Neutrophils % Lymphocytes % (Manual) Eosinophils % (Manual) Basophils % (Manual) Nucleated RBC % Seg Neutrophils # Seg Neutrophils # Man Lymphocytes # (Manual) Monocytes # (Manual) Eosinophils # (Manual) Basophils # (Manual) Percent Retic PT INR Fibrinogen D-Dimer ABG pH POC ABG pCO2 POC ABG pO2 ABG pO2 ABG HCO3 ABG O2 Saturation ABG Base Excess ABG Hemoglobin ABG Oxyhemoglobin ABG Sodium ABG Potassium ABG Chloride ABG Glucose Oxyhemoglobin Carboxyhemoglobin Sodium 135 L Potassium 6.4 H* Chloride Carbon Dioxide 15 L BUN 26 H Creatinine 3.4 H D Glucose 165 H POC Glucose 209 H Hemoglobin A1c Calcium Phosphorus Magnesium AST ALT Alkaline Phosphatase Lactate Dehydrogenase C-Reactive Protein Total Protein Albumin Triglycerides Arterial Blood Glucose Arterial Blood Ionized Calcium Urine WBC (Auto) U Epithel Cells (Auto) Urine Creatinine 40.1 H Random Vancomycin Heparin-induced Plt Ab Coronavirus (PCR) Crossmatch 03/14/21 03/14/21 03/14/21 18:46 22:23 23:52 WBC RBC Hgb Hct MCH MCHC RDW Plt Count Lymph % (Auto) [place] # (Auto) Eos # (Auto) Seg Neutrophils % Lymphocytes % (Manual) Eosinophils % (Manual) Basophils % (Manual) Nucleated RBC % Seg Neutrophils # Seg Neutrophils # Man Lymphocytes # (Manual) Monocytes # (Manual) Eosinophils # (Manual) Basophils # (Manual) Percent Retic PT INR Fibrinogen D-Dimer ABG pH 7.270 L POC ABG pCO2 POC ABG pO2 63.4 L ABG pO2 ABG HCO3 ABG O2 Saturation ABG Base Excess ABG Hemoglobin ABG Oxyhemoglobin 90.2 L ABG Sodium 134.9 L ABG Potassium 5.3 H ABG Chloride ABG Glucose 134 H Oxyhemoglobin Carboxyhemoglobin Sodium 136 L Potassium 5.2 H Chloride Carbon Dioxide 20 L BUN 29 H Creatinine 3.6 H Glucose 236 H POC Glucose 128 H Hemoglobin A1c Calcium Phosphorus Magnesium AST ALT Alkaline Phosphatase Lactate Dehydrogenase C-Reactive Protein Total Protein Albumin 3.2 L Triglycerides Arterial Blood Glucose 134 H Arterial Blood Ionized Calcium Urine WBC (Auto) U Epithel Cells (Auto) Urine Creatinine Random Vancomycin Heparin-induced Plt Ab Coronavirus (PCR) Crossmatch 03/14/21 03/15/21 03/15/21 Unknown 05:00 05:09 WBC 22.5 H RBC Hgb Hct MCH 27 L MCHC RDW 17.6 H Plt Count Lymph % (Auto) [place] # (Auto) Eos # (Auto) Seg Neutrophils % Lymphocytes % (Manual) Eosinophils % (Manual) Basophils % (Manual) Nucleated RBC % Seg Neutrophils # Seg Neutrophils # Man Lymphocytes # (Manual) Monocytes # (Manual) Eosinophils # (Manual) Basophils # (Manual) Percent Retic PT INR Fibrinogen D-Dimer ABG pH POC ABG pCO2 POC ABG pO2 ABG pO2 ABG HCO3 ABG O2 Saturation ABG Base Excess ABG Hemoglobin ABG Oxyhemoglobin ABG Sodium ABG Potassium ABG Chloride ABG Glucose Oxyhemoglobin Carboxyhemoglobin Sodium Potassium Chloride Carbon Dioxide BUN Creatinine Glucose POC Glucose 116 H Hemoglobin A1c Calcium Phosphorus Magnesium AST ALT Alkaline Phosphatase Lactate Dehydrogenase C-Reactive Protein Total Protein Albumin Triglycerides Arterial Blood Glucose Arterial Blood Ionized Calcium Urine WBC (Auto) U Epithel Cells (Auto) Urine Creatinine Random Vancomycin Heparin-induced Plt Ab Coronavirus (PCR) Positive A Crossmatch 03/15/21 03/15/21 03/15/21 05:09 05:09 05:09 WBC RBC Hgb Hct MCH MCHC RDW Plt Count Lymph % (Auto) [place] # (Auto) Eos # (Auto) Seg Neutrophils % Lymphocytes % (Manual) Eosinophils % (Manual) Basophils % (Manual) Nucleated RBC % Seg Neutrophils # Seg Neutrophils # Man Lymphocytes # (Manual) Monocytes # (Manual) Eosinophils # (Manual) Basophils # (Manual) Percent Retic PT INR Fibrinogen D-Dimer ABG pH POC ABG pCO2 POC ABG pO2 ABG pO2 ABG HCO3 ABG O2 Saturation ABG Base Excess ABG Hemoglobin ABG Oxyhemoglobin ABG Sodium ABG Potassium ABG Chloride ABG Glucose Oxyhemoglobin Carboxyhemoglobin Sodium 136 L Potassium 6.5 H* D Chloride Carbon Dioxide 17 L BUN 41 H Creatinine 5.3 H Glucose 128 H POC Glucose Hemoglobin A1c 6.3 H Calcium Phosphorus Magnesium AST ALT Alkaline Phosphatase Lactate Dehydrogenase C-Reactive Protein 12.10 H Total Protein Albumin 3.1 L Triglycerides Arterial Blood Glucose Arterial Blood Ionized Calcium Urine WBC (Auto) U Epithel Cells (Auto) Urine Creatinine Random Vancomycin Heparin-induced Plt Ab Coronavirus (PCR) Crossmatch 03/15/21 03/15/21 03/15/21 10:00 21:50 23:39 WBC RBC Hgb Hct MCH MCHC RDW Plt Count Lymph % (Auto) [place] # (Auto) Eos # (Auto) Seg Neutrophils % Lymphocytes % (Manual) Eosinophils % (Manual) Basophils % (Manual) Nucleated RBC % Seg Neutrophils # Seg Neutrophils # Man Lymphocytes # (Manual) Monocytes # (Manual) Eosinophils # (Manual) Basophils # (Manual) Percent Retic PT INR Fibrinogen D-Dimer ABG pH 7.098 L POC ABG pCO2 72.7 H POC ABG pO2 ABG pO2 162.5 H ABG HCO3 ABG O2 Saturation ABG Base Excess ABG Hemoglobin 10.1 L ABG Oxyhemoglobin ABG Sodium ABG Potassium 5.7 H ABG Chloride ABG Glucose Oxyhemoglobin Carboxyhemoglobin 0.4 L Sodium Potassium Chloride Carbon Dioxide BUN Creatinine Glucose POC Glucose 156 H Hemoglobin A1c Calcium Phosphorus Magnesium AST ALT Alkaline Phosphatase Lactate Dehydrogenase C-Reactive Protein Total Protein Albumin Triglycerides Arterial Blood Glucose Arterial Blood Ionized Calcium Urine WBC (Auto) U Epithel Cells (Auto) Urine Creatinine Random Vancomycin Heparin-induced Plt Ab Coronavirus (PCR) Crossmatch 03/16/21 03/16/21 03/16/21 05:00 05:30 05:30 WBC 16.7 H RBC 3.59 L Hgb 9.6 L Hct 30.1 L MCH 27 L MCHC RDW 17.5 H Plt Count Lymph % (Auto) [place] # (Auto) Eos # (Auto) Seg Neutrophils % Lymphocytes % (Manual) Eosinophils % (Manual) Basophils % (Manual) Nucleated RBC % Seg Neutrophils # Seg Neutrophils # Man Lymphocytes # (Manual) Monocytes # (Manual) Eosinophils # (Manual) Basophils # (Manual) Percent Retic PT INR Fibrinogen D-Dimer ABG pH POC ABG pCO2 POC ABG pO2 ABG pO2 ABG HCO3 ABG O2 Saturation ABG Base Excess ABG Hemoglobin ABG Oxyhemoglobin ABG Sodium ABG Potassium ABG Chloride ABG Glucose Oxyhemoglobin Carboxyhemoglobin Sodium Potassium Chloride Carbon Dioxide BUN 46 H Creatinine 6.2 H Glucose 131 H POC Glucose Hemoglobin A1c Calcium Phosphorus 6.00 H D Magnesium AST ALT Alkaline Phosphatase Lactate Dehydrogenase 318 H C-Reactive Protein 18.60 H Total Protein Albumin 3.0 L Triglycerides Arterial Blood Glucose Arterial Blood Ionized Calcium Urine WBC (Auto) U Epithel Cells (Auto) Urine Creatinine Random Vancomycin Heparin-induced Plt Ab Coronavirus (PCR) Crossmatch 03/16/21 03/16/21 03/16/21 05:51 06:37 08:58 WBC RBC Hgb Hct MCH MCHC RDW Plt Count Lymph % (Auto) [place] # (Auto) Eos # (Auto) Seg Neutrophils % Lymphocytes % (Manual) Eosinophils % (Manual) Basophils % (Manual) Nucleated RBC % Seg Neutrophils # Seg Neutrophils # Man Lymphocytes # (Manual) Monocytes # (Manual) Eosinophils # (Manual) Basophils # (Manual) Percent Retic PT INR Fibrinogen D-Dimer 3041.12 H ABG pH POC ABG pCO2 POC ABG pO2 ABG pO2 141.5 H ABG HCO3 ABG O2 Saturation ABG Base Excess ABG Hemoglobin 9.7 L ABG Oxyhemoglobin ABG Sodium ABG Potassium ABG Chloride ABG Glucose Oxyhemoglobin Carboxyhemoglobin Sodium Potassium Chloride Carbon Dioxide BUN Creatinine Glucose POC Glucose 126 H Hemoglobin A1c Calcium Phosphorus Magnesium AST ALT Alkaline Phosphatase Lactate Dehydrogenase C-Reactive Protein Total Protein Albumin Triglycerides Arterial Blood Glucose Arterial Blood Ionized Calcium Urine WBC (Auto) U Epithel Cells (Auto) Urine Creatinine Random Vancomycin Heparin-induced Plt Ab Coronavirus (PCR) Crossmatch 03/16/21 03/16/21 03/16/21 12:11 16:51 21:00 WBC RBC Hgb Hct MCH MCHC RDW Plt Count Lymph % (Auto) [place] # (Auto) Eos # (Auto) Seg Neutrophils % Lymphocytes % (Manual) Eosinophils % (Manual) Basophils % (Manual) Nucleated RBC % Seg Neutrophils # Seg Neutrophils # Man Lymphocytes # (Manual) Monocytes # (Manual) Eosinophils # (Manual) Basophils # (Manual) Percent Retic PT INR Fibrinogen D-Dimer ABG pH 7.239 L POC ABG pCO2 61.5 H POC ABG pO2 80.8 L ABG pO2 ABG HCO3 ABG O2 Saturation ABG Base Excess ABG Hemoglobin 11.4 L ABG Oxyhemoglobin 93.5 L ABG Sodium ABG Potassium 5.4 H ABG Chloride ABG Glucose 137 H Oxyhemoglobin Carboxyhemoglobin 0.2 L Sodium Potassium Chloride Carbon Dioxide BUN Creatinine Glucose POC Glucose 156 H 133 H Hemoglobin A1c Calcium Phosphorus Magnesium AST ALT Alkaline Phosphatase Lactate Dehydrogenase C-Reactive Protein Total Protein Albumin Triglycerides Arterial Blood Glucose 137 H Arterial Blood Ionized Calcium Urine WBC (Auto) U Epithel Cells (Auto) Urine Creatinine Random Vancomycin Heparin-induced Plt Ab Coronavirus (PCR) Crossmatch 03/16/21 03/17/21 03/17/21 23:42 05:23 05:23 WBC 18.4 H RBC Hgb Hct MCH 27 L MCHC RDW 17.4 H Plt Count Lymph % (Auto) [place] # (Auto) Eos # (Auto) Seg Neutrophils % Lymphocytes % (Manual) Eosinophils % (Manual) Basophils % (Manual) Nucleated RBC % Seg Neutrophils # Seg Neutrophils # Man Lymphocytes # (Manual) Monocytes # (Manual) Eosinophils # (Manual) Basophils # (Manual) Percent Retic PT INR Fibrinogen D-Dimer ABG pH POC ABG pCO2 POC ABG pO2 ABG pO2 ABG HCO3 ABG O2 Saturation ABG Base Excess ABG Hemoglobin ABG Oxyhemoglobin ABG Sodium ABG Potassium ABG Chloride ABG Glucose Oxyhemoglobin Carboxyhemoglobin Sodium Potassium 5.2 H Chloride Carbon Dioxide 21 L BUN 79 H Creatinine 8.6 H Glucose 124 H POC Glucose 133 H Hemoglobin A1c Calcium Phosphorus Magnesium AST ALT Alkaline Phosphatase Lactate Dehydrogenase C-Reactive Protein Total Protein Albumin 3.2 L Triglycerides 285 H Arterial Blood Glucose Arterial Blood Ionized Calcium Urine WBC (Auto) U Epithel Cells (Auto) Urine Creatinine Random Vancomycin Heparin-induced Plt Ab Coronavirus (PCR) Crossmatch 03/17/21 03/17/21 03/17/21 05:23 10:48 12:20 WBC RBC Hgb Hct MCH MCHC RDW Plt Count Lymph % (Auto) [place] # (Auto) Eos # (Auto) Seg Neutrophils % Lymphocytes % (Manual) Eosinophils % (Manual) Basophils % (Manual) Nucleated RBC % Seg Neutrophils # Seg Neutrophils # Man Lymphocytes # (Manual) Monocytes # (Manual) Eosinophils # (Manual) Basophils # (Manual) Percent Retic PT INR Fibrinogen D-Dimer ABG pH 7.294 L POC ABG pCO2 POC ABG pO2 ABG pO2 90.3 H ABG HCO3 ABG O2 Saturation ABG Base Excess ABG Hemoglobin 9.9 L ABG Oxyhemoglobin ABG Sodium ABG Potassium ABG Chloride ABG Glucose Oxyhemoglobin Carboxyhemoglobin Sodium Potassium 5.2 H Chloride Carbon Dioxide 21 L BUN 79 H Creatinine 8.4 H Glucose 125 H POC Glucose 171 H Hemoglobin A1c Calcium Phosphorus 9.90 H D Magnesium 2.40 H AST ALT Alkaline Phosphatase Lactate Dehydrogenase C-Reactive Protein Total Protein Albumin Triglycerides Arterial Blood Glucose Arterial Blood Ionized Calcium Urine WBC (Auto) U Epithel Cells (Auto) Urine Creatinine Random Vancomycin Heparin-induced Plt Ab Coronavirus (PCR) Crossmatch 03/17/21 03/17/21 03/18/21 17:24 21:00 04:30 WBC RBC Hgb Hct MCH MCHC RDW Plt Count Lymph % (Auto) [place] # (Auto) Eos # (Auto) Seg Neutrophils % Lymphocytes % (Manual) Eosinophils % (Manual) Basophils % (Manual) Nucleated RBC % Seg Neutrophils # Seg Neutrophils # Man Lymphocytes # (Manual) Monocytes # (Manual) Eosinophils # (Manual) Basophils # (Manual) Percent Retic PT INR Fibrinogen D-Dimer 9953.09 H ABG pH 7.310 L POC ABG pCO2 54.5 H POC ABG pO2 62.3 L ABG pO2 ABG HCO3 ABG O2 Saturation ABG Base Excess ABG Hemoglobin 10.2 L ABG Oxyhemoglobin 88.6 L ABG Sodium ABG Potassium 4.7 H ABG Chloride ABG Glucose 99 H Oxyhemoglobin Carboxyhemoglobin 0.3 L Sodium Potassium Chloride Carbon Dioxide BUN Creatinine Glucose POC Glucose 121 H Hemoglobin A1c Calcium Phosphorus Magnesium AST ALT Alkaline Phosphatase Lactate Dehydrogenase C-Reactive Protein Total Protein Albumin Triglycerides Arterial Blood Glucose 99 H Arterial Blood Ionized Calcium 4.3 L Urine WBC (Auto) U Epithel Cells (Auto) Urine Creatinine Random Vancomycin Heparin-induced Plt Ab Coronavirus (PCR) Crossmatch 03/18/21 03/18/21 03/18/21 04:30 04:30 11:34 WBC 12.8 H RBC 3.49 L Hgb 9.4 L Hct 29.3 L MCH 27 L MCHC RDW 17.4 H Plt Count Lymph % (Auto) [place] # (Auto) Eos # (Auto) Seg Neutrophils % Lymphocytes % (Manual) Eosinophils % (Manual) Basophils % (Manual) Nucleated RBC % Seg Neutrophils # Seg Neutrophils # Man Lymphocytes # (Manual) Monocytes # (Manual) Eosinophils # (Manual) Basophils # (Manual) Percent Retic PT INR Fibrinogen D-Dimer ABG pH POC ABG pCO2 POC ABG pO2 ABG pO2 ABG HCO3 ABG O2 Saturation ABG Base Excess ABG Hemoglobin ABG Oxyhemoglobin ABG Sodium ABG Potassium ABG Chloride ABG Glucose Oxyhemoglobin Carboxyhemoglobin Sodium Potassium Chloride Carbon Dioxide BUN 69 H Creatinine 7.3 H Glucose POC Glucose 114 H Hemoglobin A1c Calcium 8.2 L Phosphorus 7.60 H D Magnesium AST ALT Alkaline Phosphatase Lactate Dehydrogenase 477 H C-Reactive Protein 6.90 H Total Protein Albumin Triglycerides Arterial Blood Glucose Arterial Blood Ionized Calcium Urine WBC (Auto) U Epithel Cells (Auto) Urine Creatinine Random Vancomycin Heparin-induced Plt Ab Coronavirus (PCR) Crossmatch 03/18/21 03/19/21 03/19/21 21:44 04:13 04:13 WBC 13.7 H RBC 3.32 L Hgb 9.0 L Hct 28.1 L MCH 27 L MCHC RDW 16.9 H Plt Count Lymph % (Auto) [place] # (Auto) Eos # (Auto) Seg Neutrophils % Lymphocytes % (Manual) Eosinophils % (Manual) Basophils % (Manual) Nucleated RBC % Seg Neutrophils # Seg Neutrophils # Man Lymphocytes # (Manual) Monocytes # (Manual) Eosinophils # (Manual) Basophils # (Manual) Percent Retic PT INR Fibrinogen D-Dimer ABG pH 7.290 L POC ABG pCO2 POC ABG pO2 ABG pO2 119.7 H ABG HCO3 28.0 H ABG O2 Saturation ABG Base Excess ABG Hemoglobin 9.6 L ABG Oxyhemoglobin ABG Sodium ABG Potassium ABG Chloride ABG Glucose Oxyhemoglobin Carboxyhemoglobin Sodium Potassium Chloride Carbon Dioxide BUN Creatinine Glucose POC Glucose Hemoglobin A1c Calcium Phosphorus Magnesium AST ALT Alkaline Phosphatase Lactate Dehydrogenase C-Reactive Protein Total Protein Albumin Triglycerides Arterial Blood Glucose Arterial Blood Ionized Calcium Urine WBC (Auto) U Epithel Cells (Auto) Urine Creatinine Random Vancomycin 43.5 H Heparin-induced Plt Ab Coronavirus (PCR) Crossmatch 03/19/21 03/19/21 03/19/21 04:13 05:59 11:40 WBC RBC Hgb Hct MCH MCHC RDW Plt Count Lymph % (Auto) [place] # (Auto) Eos # (Auto) Seg Neutrophils % Lymphocytes % (Manual) Eosinophils % (Manual) Basophils % (Manual) Nucleated RBC % Seg Neutrophils # Seg Neutrophils # Man Lymphocytes # (Manual) Monocytes # (Manual) Eosinophils # (Manual) Basophils # (Manual) Percent Retic PT INR Fibrinogen D-Dimer ABG pH POC ABG pCO2 POC ABG pO2 ABG pO2 ABG HCO3 ABG O2 Saturation ABG Base Excess ABG Hemoglobin ABG Oxyhemoglobin ABG Sodium ABG Potassium ABG Chloride ABG Glucose Oxyhemoglobin Carboxyhemoglobin Sodium Potassium Chloride Carbon Dioxide BUN 55 H Creatinine 7.0 H Glucose POC Glucose 116 H 145 H Hemoglobin A1c Calcium 8.1 L Phosphorus 7.90 H Magnesium AST ALT Alkaline Phosphatase Lactate Dehydrogenase C-Reactive Protein Total Protein Albumin Triglycerides Arterial Blood Glucose Arterial Blood Ionized Calcium Urine WBC (Auto) U Epithel Cells (Auto) Urine Creatinine Random Vancomycin Heparin-induced Plt Ab Coronavirus (PCR) Crossmatch 03/19/21 03/19/21 03/20/21 17:01 23:41 04:00 WBC 15.6 H RBC 3.55 L Hgb 9.6 L Hct MCH 27 L MCHC RDW 16.8 H Plt Count 139 L Lymph % (Auto) [place] # (Auto) Eos # (Auto) Seg Neutrophils % Lymphocytes % (Manual) Eosinophils % (Manual) Basophils % (Manual) Nucleated RBC % Seg Neutrophils # Seg Neutrophils # Man Lymphocytes # (Manual) Monocytes # (Manual) Eosinophils # (Manual) Basophils # (Manual) Percent Retic PT INR Fibrinogen D-Dimer ABG pH POC ABG pCO2 POC ABG pO2 ABG pO2 ABG HCO3 ABG O2 Saturation ABG Base Excess ABG Hemoglobin ABG Oxyhemoglobin ABG Sodium ABG Potassium ABG Chloride ABG Glucose Oxyhemoglobin Carboxyhemoglobin Sodium Potassium Chloride Carbon Dioxide BUN Creatinine Glucose POC Glucose 111 H 118 H Hemoglobin A1c Calcium Phosphorus Magnesium AST ALT Alkaline Phosphatase Lactate Dehydrogenase C-Reactive Protein Total Protein Albumin Triglycerides Arterial Blood Glucose Arterial Blood Ionized Calcium Urine WBC (Auto) U Epithel Cells (Auto) Urine Creatinine Random Vancomycin Heparin-induced Plt Ab Coronavirus (PCR) Crossmatch 03/20/21 03/20/21 03/20/21 04:00 04:00 04:37 WBC RBC Hgb Hct MCH MCHC RDW Plt Count Lymph % (Auto) [place] # (Auto) Eos # (Auto) Seg Neutrophils % Lymphocytes % (Manual) Eosinophils % (Manual) Basophils % (Manual) Nucleated RBC % Seg Neutrophils # Seg Neutrophils # Man Lymphocytes # (Manual) Monocytes # (Manual) Eosinophils # (Manual) Basophils # (Manual) Percent Retic PT INR Fibrinogen D-Dimer > 29175 H ABG pH 7.306 L POC ABG pCO2 POC ABG pO2 ABG pO2 ABG HCO3 27.9 H ABG O2 Saturation ABG Base Excess ABG Hemoglobin 5.2 L ABG Oxyhemoglobin ABG Sodium ABG Potassium ABG Chloride ABG Glucose Oxyhemoglobin Carboxyhemoglobin Sodium Potassium 5.2 H Chloride 97.6 L Carbon Dioxide BUN 52 H Creatinine 6.2 H Glucose 104 H POC Glucose Hemoglobin A1c Calcium Phosphorus 8.60 H Magnesium AST ALT Alkaline Phosphatase Lactate Dehydrogenase C-Reactive Protein 6.90 H Total Protein Albumin Triglycerides Arterial Blood Glucose Arterial Blood Ionized Calcium Urine WBC (Auto) U Epithel Cells (Auto) Urine Creatinine Random Vancomycin Heparin-induced Plt Ab Coronavirus (PCR) Crossmatch 03/20/21 03/20/21 03/20/21 13:50 17:46 17:56 WBC RBC Hgb Hct MCH MCHC RDW Plt Count Lymph % (Auto) [place] # (Auto) Eos # (Auto) Seg Neutrophils % Lymphocytes % (Manual) Eosinophils % (Manual) Basophils % (Manual) Nucleated RBC % Seg Neutrophils # Seg Neutrophils # Man Lymphocytes # (Manual) Monocytes # (Manual) Eosinophils # (Manual) Basophils # (Manual) Percent Retic PT INR Fibrinogen D-Dimer ABG pH POC ABG pCO2 POC ABG pO2 ABG pO2 ABG HCO3 ABG O2 Saturation ABG Base Excess ABG Hemoglobin ABG Oxyhemoglobin ABG Sodium ABG Potassium ABG Chloride ABG Glucose Oxyhemoglobin Carboxyhemoglobin Sodium Potassium Chloride Carbon Dioxide BUN 63 H 43 H Creatinine Glucose POC Glucose 145 H Hemoglobin A1c Calcium Phosphorus Magnesium AST ALT Alkaline Phosphatase Lactate Dehydrogenase C-Reactive Protein Total Protein Albumin Triglycerides Arterial Blood Glucose Arterial Blood Ionized Calcium Urine WBC (Auto) U Epithel Cells (Auto) Urine Creatinine Random Vancomycin Heparin-induced Plt Ab Coronavirus (PCR) Crossmatch 03/20/21 03/21/21 03/21/21 23:18 06:58 06:58 WBC 14.4 H RBC 3.41 L Hgb 9.5 L Hct 28.6 L MCH MCHC RDW 17.4 H Plt Count 107 L Lymph % (Auto) [place] # (Auto) Eos # (Auto) Seg Neutrophils % Lymphocytes % (Manual) Eosinophils % (Manual) Basophils % (Manual) Nucleated RBC % Seg Neutrophils # Seg Neutrophils # Man Lymphocytes # (Manual) Monocytes # (Manual) Eosinophils # (Manual) Basophils # (Manual) Percent Retic PT INR Fibrinogen D-Dimer ABG pH POC ABG pCO2 POC ABG pO2 ABG pO2 ABG HCO3 ABG O2 Saturation ABG Base Excess ABG Hemoglobin ABG Oxyhemoglobin ABG Sodium ABG Potassium ABG Chloride ABG Glucose Oxyhemoglobin Carboxyhemoglobin Sodium Potassium Chloride Carbon Dioxide BUN 60 H Creatinine 7.7 H Glucose POC Glucose 106 H Hemoglobin A1c Calcium Phosphorus Magnesium AST ALT Alkaline Phosphatase Lactate Dehydrogenase C-Reactive Protein Total Protein Albumin Triglycerides Arterial Blood Glucose Arterial Blood Ionized Calcium Urine WBC (Auto) U Epithel Cells (Auto) Urine Creatinine Random Vancomycin Heparin-induced Plt Ab Coronavirus (PCR) Crossmatch 03/21/21 03/21/21 03/21/21 11:11 18:04 Unknown WBC RBC Hgb Hct MCH MCHC RDW Plt Count Lymph % (Auto) [place] # (Auto) Eos # (Auto) Seg Neutrophils % Lymphocytes % (Manual) Eosinophils % (Manual) Basophils % (Manual) Nucleated RBC % Seg Neutrophils # Seg Neutrophils # Man Lymphocytes # (Manual) Monocytes # (Manual) Eosinophils # (Manual) Basophils # (Manual) Percent Retic PT INR Fibrinogen D-Dimer ABG pH 7.270 L POC ABG pCO2 58.7 H POC ABG pO2 76.9 L ABG pO2 ABG HCO3 ABG O2 Saturation ABG Base Excess ABG Hemoglobin 9.9 L ABG Oxyhemoglobin 92.4 L ABG Sodium 135.8 L ABG Potassium 4.6 H ABG Chloride ABG Glucose Oxyhemoglobin Carboxyhemoglobin 0.1 L Sodium Potassium Chloride Carbon Dioxide BUN Creatinine Glucose POC Glucose 109 H 141 H Hemoglobin A1c Calcium Phosphorus Magnesium AST ALT Alkaline Phosphatase Lactate Dehydrogenase C-Reactive Protein Total Protein Albumin Triglycerides Arterial Blood Glucose Arterial Blood Ionized Calcium 4.5 L Urine WBC (Auto) U Epithel Cells (Auto) Urine Creatinine Random Vancomycin Heparin-induced Plt Ab Coronavirus (PCR) Crossmatch 03/22/21 03/22/21 03/22/21 03:09 07:10 10:00 WBC RBC Hgb Hct MCH MCHC RDW Plt Count Lymph % (Auto) [place] # (Auto) Eos # (Auto) Seg Neutrophils % Lymphocytes % (Manual) Eosinophils % (Manual) Basophils % (Manual) Nucleated RBC % Seg Neutrophils # Seg Neutrophils # Man Lymphocytes # (Manual) Monocytes # (Manual) Eosinophils # (Manual) Basophils # (Manual) Percent Retic PT INR Fibrinogen D-Dimer ABG pH 7.206 L 7.245 L POC ABG pCO2 55.6 H POC ABG pO2 ABG pO2 90.6 H ABG HCO3 ABG O2 Saturation ABG Base Excess -4.4 L ABG Hemoglobin 9.0 L 8.4 L ABG Oxyhemoglobin ABG Sodium 123.4 L ABG Potassium 5.6 H ABG Chloride ABG Glucose 106 H Oxyhemoglobin 94.5 L Carboxyhemoglobin 0.1 L Sodium Potassium 5.4 H Chloride 96.8 L Carbon Dioxide BUN 89 H Creatinine 8.7 H Glucose 131 H POC Glucose Hemoglobin A1c Calcium Phosphorus Magnesium AST ALT Alkaline Phosphatase Lactate Dehydrogenase C-Reactive Protein 9.40 H Total Protein Albumin Triglycerides Arterial Blood Glucose 106 H Arterial Blood Ionized Calcium Urine WBC (Auto) U Epithel Cells (Auto) Urine Creatinine Random Vancomycin Heparin-induced Plt Ab Coronavirus (PCR) Crossmatch 03/22/21 03/22/21 03/22/21 10:00 12:37 13:19 WBC RBC 3.05 L Hgb 8.4 L Hct 25.5 L MCH MCHC RDW 17.5 H Plt Count 108 L Lymph % (Auto) [place] # (Auto) Eos # (Auto) Seg Neutrophils % Lymphocytes % (Manual) Eosinophils % (Manual) Basophils % (Manual) Nucleated RBC % Seg Neutrophils # Seg Neutrophils # Man Lymphocytes # (Manual) Monocytes # (Manual) Eosinophils # (Manual) Basophils # (Manual) Percent Retic PT INR Fibrinogen D-Dimer ABG pH POC ABG pCO2 POC ABG pO2 ABG pO2 ABG HCO3 ABG O2 Saturation ABG Base Excess ABG Hemoglobin ABG Oxyhemoglobin ABG Sodium ABG Potassium ABG Chloride ABG Glucose Oxyhemoglobin Carboxyhemoglobin Sodium Potassium Chloride Carbon Dioxide BUN Creatinine 8.7 H Glucose POC Glucose 140 H Hemoglobin A1c Calcium Phosphorus Magnesium AST ALT Alkaline Phosphatase Lactate Dehydrogenase C-Reactive Protein Total Protein Albumin Triglycerides Arterial Blood Glucose Arterial Blood Ionized Calcium Urine WBC (Auto) U Epithel Cells (Auto) Urine Creatinine Random Vancomycin Heparin-induced Plt Ab Coronavirus (PCR) Crossmatch 03/22/21 03/22/21 03/22/21 13:40 17:14 18:21 WBC RBC Hgb Hct MCH MCHC RDW Plt Count Lymph % (Auto) [place] # (Auto) Eos # (Auto) Seg Neutrophils % Lymphocytes % (Manual) Eosinophils % (Manual) Basophils % (Manual) Nucleated RBC % Seg Neutrophils # Seg Neutrophils # Man Lymphocytes # (Manual) Monocytes # (Manual) Eosinophils # (Manual) Basophils # (Manual) Percent Retic PT 15.8 H INR 1.14 H Fibrinogen D-Dimer > 39633 H ABG pH POC ABG pCO2 POC ABG pO2 ABG pO2 ABG HCO3 ABG O2 Saturation ABG Base Excess ABG Hemoglobin ABG Oxyhemoglobin ABG Sodium ABG Potassium ABG Chloride ABG Glucose Oxyhemoglobin Carboxyhemoglobin Sodium Potassium Chloride Carbon Dioxide BUN Creatinine Glucose POC Glucose 117 H 112 H Hemoglobin A1c Calcium Phosphorus Magnesium AST ALT Alkaline Phosphatase Lactate Dehydrogenase C-Reactive Protein Total Protein Albumin Triglycerides Arterial Blood Glucose Arterial Blood Ionized Calcium Urine WBC (Auto) U Epithel Cells (Auto) Urine Creatinine Random Vancomycin Heparin-induced Plt Ab Coronavirus (PCR) Crossmatch 03/22/21 03/22/21 03/23/21 21:25 22:57 04:30 WBC RBC Hgb Hct MCH MCHC RDW Plt Count Lymph % (Auto) [place] # (Auto) Eos # (Auto) Seg Neutrophils % Lymphocytes % (Manual) Eosinophils % (Manual) Basophils % (Manual) Nucleated RBC % Seg Neutrophils # Seg Neutrophils # Man Lymphocytes # (Manual) Monocytes # (Manual) Eosinophils # (Manual) Basophils # (Manual) Percent Retic PT INR Fibrinogen D-Dimer ABG pH 7.188 L* POC ABG pCO2 POC ABG pO2 ABG pO2 97.9 H ABG HCO3 ABG O2 Saturation ABG Base Excess -3.7 L ABG Hemoglobin 9.2 L ABG Oxyhemoglobin ABG Sodium ABG Potassium ABG Chloride ABG Glucose Oxyhemoglobin 94.4 L Carboxyhemoglobin Sodium Potassium Chloride Carbon Dioxide BUN Creatinine Glucose POC Glucose 106 H Hemoglobin A1c Calcium Phosphorus Magnesium AST ALT Alkaline Phosphatase Lactate Dehydrogenase C-Reactive Protein Total Protein Albumin Triglycerides 381 H Arterial Blood Glucose Arterial Blood Ionized Calcium Urine WBC (Auto) U Epithel Cells (Auto) Urine Creatinine Random Vancomycin Heparin-induced Plt Ab Coronavirus (PCR) Crossmatch 03/23/21 03/23/21 03/23/21 04:30 04:30 05:37 WBC 20.1 H RBC 3.17 L Hgb 8.6 L Hct 27.2 L MCH 27 L MCHC RDW 17.4 H Plt Count 118 L Lymph % (Auto) [place] # (Auto) Eos # (Auto) Seg Neutrophils % Lymphocytes % (Manual) Eosinophils % (Manual) Basophils % (Manual) Nucleated RBC % Seg Neutrophils # Seg Neutrophils # Man Lymphocytes # (Manual) Monocytes # (Manual) Eosinophils # (Manual) Basophils # (Manual) Percent Retic PT INR Fibrinogen D-Dimer ABG pH POC ABG pCO2 POC ABG pO2 ABG pO2 ABG HCO3 ABG O2 Saturation ABG Base Excess ABG Hemoglobin ABG Oxyhemoglobin ABG Sodium ABG Potassium ABG Chloride ABG Glucose Oxyhemoglobin Carboxyhemoglobin Sodium Potassium 5.2 H Chloride 97.1 L Carbon Dioxide 21 L BUN 82 H Creatinine 9.1 H Glucose 109 H POC Glucose 130 H Hemoglobin A1c Calcium Phosphorus 10.80 H Magnesium 3.50 H AST ALT Alkaline Phosphatase Lactate Dehydrogenase C-Reactive Protein Total Protein Albumin Triglycerides Arterial Blood Glucose Arterial Blood Ionized Calcium Urine WBC (Auto) U Epithel Cells (Auto) Urine Creatinine Random Vancomycin Heparin-induced Plt Ab Coronavirus (PCR) Crossmatch 03/23/21 03/23/21 03/23/21 08:44 11:30 16:09 WBC RBC Hgb Hct MCH MCHC RDW Plt Count Lymph % (Auto) [place] # (Auto) Eos # (Auto) Seg Neutrophils % Lymphocytes % (Manual) Eosinophils % (Manual) Basophils % (Manual) Nucleated RBC % Seg Neutrophils # Seg Neutrophils # Man Lymphocytes # (Manual) Monocytes # (Manual) Eosinophils # (Manual) Basophils # (Manual) Percent Retic PT INR Fibrinogen D-Dimer ABG pH 7.190 L POC ABG pCO2 57.9 H POC ABG pO2 79.2 L ABG pO2 ABG HCO3 ABG O2 Saturation ABG Base Excess ABG Hemoglobin 11.8 L ABG Oxyhemoglobin 92.3 L ABG Sodium 131.0 L ABG Potassium 5.0 H ABG Chloride ABG Glucose 122 H Oxyhemoglobin Carboxyhemoglobin 0.4 L Sodium Potassium Chloride Carbon Dioxide BUN Creatinine Glucose POC Glucose 129 H 148 H Hemoglobin A1c Calcium Phosphorus Magnesium AST ALT Alkaline Phosphatase Lactate Dehydrogenase C-Reactive Protein Total Protein Albumin Triglycerides Arterial Blood Glucose 122 H Arterial Blood Ionized Calcium 4.4 L Urine WBC (Auto) U Epithel Cells (Auto) Urine Creatinine Random Vancomycin Heparin-induced Plt Ab Coronavirus (PCR) Crossmatch 03/23/21 03/24/21 03/24/21 21:00 03:35 04:00 WBC 17.8 H RBC 2.96 L Hgb 8.1 L Hct 25.0 L MCH 27 L MCHC RDW 17.7 H Plt Count 124 L Lymph % (Auto) [place] # (Auto) Eos # (Auto) Seg Neutrophils % Lymphocytes % (Manual) Eosinophils % (Manual) Basophils % (Manual) Nucleated RBC % Seg Neutrophils # Seg Neutrophils # Man Lymphocytes # (Manual) Monocytes # (Manual) Eosinophils # (Manual) Basophils # (Manual) Percent Retic PT INR Fibrinogen D-Dimer ABG pH 7.223 L POC ABG pCO2 50.3 H POC ABG pO2 114.4 H ABG pO2 ABG HCO3 ABG O2 Saturation ABG Base Excess ABG Hemoglobin 8.8 L ABG Oxyhemoglobin ABG Sodium 130.4 L ABG Potassium 5.1 H ABG Chloride ABG Glucose 126 H Oxyhemoglobin Carboxyhemoglobin 0.2 L Sodium Potassium Chloride Carbon Dioxide BUN Creatinine Glucose POC Glucose 148 H Hemoglobin A1c Calcium Phosphorus Magnesium AST ALT Alkaline Phosphatase Lactate Dehydrogenase C-Reactive Protein Total Protein Albumin Triglycerides Arterial Blood Glucose 126 H Arterial Blood Ionized Calcium 4.4 L Urine WBC (Auto) U Epithel Cells (Auto) Urine Creatinine Random Vancomycin Heparin-induced Plt Ab Coronavirus (PCR) Crossmatch 03/24/21 03/24/21 03/24/21 04:00 06:49 12:29 WBC RBC Hgb Hct MCH MCHC RDW Plt Count Lymph % (Auto) [place] # (Auto) Eos # (Auto) Seg Neutrophils % Lymphocytes % (Manual) Eosinophils % (Manual) Basophils % (Manual) Nucleated RBC % Seg Neutrophils # Seg Neutrophils # Man Lymphocytes # (Manual) Monocytes # (Manual) Eosinophils # (Manual) Basophils # (Manual) Percent Retic PT INR Fibrinogen D-Dimer ABG pH POC ABG pCO2 POC ABG pO2 ABG pO2 ABG HCO3 ABG O2 Saturation ABG Base Excess ABG Hemoglobin ABG Oxyhemoglobin ABG Sodium ABG Potassium ABG Chloride ABG Glucose Oxyhemoglobin Carboxyhemoglobin Sodium Potassium Chloride 95.6 L Carbon Dioxide 20 L BUN 108 H Creatinine 10.8 H Glucose 155 H POC Glucose 136 H 142 H Hemoglobin A1c Calcium Phosphorus Magnesium AST ALT Alkaline Phosphatase Lactate Dehydrogenase C-Reactive Protein Total Protein Albumin Triglycerides Arterial Blood Glucose Arterial Blood Ionized Calcium Urine WBC (Auto) U Epithel Cells (Auto) Urine Creatinine Random Vancomycin Heparin-induced Plt Ab Coronavirus (PCR) Crossmatch 03/24/21 03/25/21 03/25/21 21:35 00:15 05:51 WBC RBC Hgb Hct MCH MCHC RDW Plt Count Lymph % (Auto) [place] # (Auto) Eos # (Auto) Seg Neutrophils % Lymphocytes % (Manual) Eosinophils % (Manual) Basophils % (Manual) Nucleated RBC % Seg Neutrophils # Seg Neutrophils # Man Lymphocytes # (Manual) Monocytes # (Manual) Eosinophils # (Manual) Basophils # (Manual) Percent Retic PT INR Fibrinogen D-Dimer ABG pH 7.241 L POC ABG pCO2 POC ABG pO2 ABG pO2 72.4 L ABG HCO3 ABG O2 Saturation 90.3 L ABG Base Excess ABG Hemoglobin 7.9 L ABG Oxyhemoglobin ABG Sodium ABG Potassium ABG Chloride ABG Glucose Oxyhemoglobin 88.4 L Carboxyhemoglobin Sodium Potassium Chloride Carbon Dioxide BUN Creatinine Glucose POC Glucose 110 H 121 H Hemoglobin A1c Calcium Phosphorus Magnesium AST ALT Alkaline Phosphatase Lactate Dehydrogenase C-Reactive Protein Total Protein Albumin Triglycerides Arterial Blood Glucose Arterial Blood Ionized Calcium Urine WBC (Auto) U Epithel Cells (Auto) Urine Creatinine Random Vancomycin Heparin-induced Plt Ab Coronavirus (PCR) Crossmatch 03/25/21 03/25/21 03/25/21 05:54 05:54 12:21 WBC 12.4 H RBC 2.52 L Hgb 6.9 L Hct 21.1 L MCH MCHC RDW 17.4 H Plt Count 102 L Lymph % (Auto) [place] # (Auto) Eos # (Auto) Seg Neutrophils % Lymphocytes % (Manual) Eosinophils % (Manual) Basophils % (Manual) Nucleated RBC % Seg Neutrophils # Seg Neutrophils # Man Lymphocytes # (Manual) Monocytes # (Manual) Eosinophils # (Manual) Basophils # (Manual) Percent Retic PT INR Fibrinogen D-Dimer ABG pH POC ABG pCO2 POC ABG pO2 ABG pO2 ABG HCO3 ABG O2 Saturation ABG Base Excess ABG Hemoglobin ABG Oxyhemoglobin ABG Sodium ABG Potassium ABG Chloride ABG Glucose Oxyhemoglobin Carboxyhemoglobin Sodium Potassium Chloride 96.7 L Carbon Dioxide BUN 81 H Creatinine 8.1 H Glucose 116 H POC Glucose 138 H Hemoglobin A1c Calcium 8.2 L Phosphorus Magnesium AST ALT Alkaline Phosphatase Lactate Dehydrogenase C-Reactive Protein Total Protein Albumin Triglycerides Arterial Blood Glucose Arterial Blood Ionized Calcium Urine WBC (Auto) U Epithel Cells (Auto) Urine Creatinine Random Vancomycin Heparin-induced Plt Ab Coronavirus (PCR) Crossmatch 03/25/21 03/25/21 03/25/21 13:45 17:32 21:30 WBC RBC Hgb Hct MCH MCHC RDW Plt Count Lymph % (Auto) [place] # (Auto) Eos # (Auto) Seg Neutrophils % Lymphocytes % (Manual) Eosinophils % (Manual) Basophils % (Manual) Nucleated RBC % Seg Neutrophils # Seg Neutrophils # Man Lymphocytes # (Manual) Monocytes # (Manual) Eosinophils # (Manual) Basophils # (Manual) Percent Retic PT INR Fibrinogen D-Dimer ABG pH POC ABG pCO2 POC ABG pO2 ABG pO2 70.2 L ABG HCO3 ABG O2 Saturation ABG Base Excess ABG Hemoglobin 6.8 L ABG Oxyhemoglobin ABG Sodium ABG Potassium ABG Chloride ABG Glucose Oxyhemoglobin 94.5 L Carboxyhemoglobin Sodium Potassium Chloride Carbon Dioxide BUN Creatinine Glucose POC Glucose 110 H Hemoglobin A1c Calcium Phosphorus Magnesium AST ALT Alkaline Phosphatase Lactate Dehydrogenase C-Reactive Protein Total Protein Albumin Triglycerides Arterial Blood Glucose Arterial Blood Ionized Calcium Urine WBC (Auto) U Epithel Cells (Auto) Urine Creatinine Random Vancomycin Heparin-induced Plt Ab Coronavirus (PCR) Crossmatch See Detail 03/25/21 03/25/21 03/26/21 23:29 Unknown 05:15 WBC 12.4 H 14.0 H RBC 2.49 L 2.83 L Hgb 6.8 L 7.6 L Hct 20.9 L 23.6 L MCH 27 L 27 L MCHC RDW 18.0 H 17.1 H Plt Count 107 L 116 L Lymph % (Auto) [place] # (Auto) Eos # (Auto) Seg Neutrophils % Lymphocytes % (Manual) Eosinophils % (Manual) Basophils % (Manual) Nucleated RBC % Seg Neutrophils # Seg Neutrophils # Man Lymphocytes # (Manual) Monocytes # (Manual) Eosinophils # (Manual) Basophils # (Manual) Percent Retic PT INR Fibrinogen D-Dimer ABG pH POC ABG pCO2 POC ABG pO2 ABG pO2 ABG HCO3 ABG O2 Saturation ABG Base Excess ABG Hemoglobin ABG Oxyhemoglobin ABG Sodium ABG Potassium ABG Chloride ABG Glucose Oxyhemoglobin Carboxyhemoglobin Sodium Potassium Chloride Carbon Dioxide BUN Creatinine Glucose POC Glucose 113 H Hemoglobin A1c Calcium Phosphorus Magnesium AST ALT Alkaline Phosphatase Lactate Dehydrogenase C-Reactive Protein Total Protein Albumin Triglycerides Arterial Blood Glucose Arterial Blood Ionized Calcium Urine WBC (Auto) U Epithel Cells (Auto) Urine Creatinine Random Vancomycin Heparin-induced Plt Ab Coronavirus (PCR) Crossmatch 03/26/21 03/26/21 03/26/21 05:15 05:35 09:50 WBC RBC Hgb Hct MCH MCHC RDW Plt Count Lymph % (Auto) [place] # (Auto) Eos # (Auto) Seg Neutrophils % Lymphocytes % (Manual) Eosinophils % (Manual) Basophils % (Manual) Nucleated RBC % Seg Neutrophils # Seg Neutrophils # Man Lymphocytes # (Manual) Monocytes # (Manual) Eosinophils # (Manual) Basophils # (Manual) Percent Retic PT INR Fibrinogen D-Dimer ABG pH POC ABG pCO2 POC ABG pO2 ABG pO2 79.9 L ABG HCO3 ABG O2 Saturation ABG Base Excess ABG Hemoglobin 7.1 L ABG Oxyhemoglobin ABG Sodium ABG Potassium ABG Chloride ABG Glucose Oxyhemoglobin 94.9 L Carboxyhemoglobin Sodium Potassium 3.4 L Chloride Carbon Dioxide BUN 70 H Creatinine 7.3 H Glucose 142 H POC Glucose 130 H Hemoglobin A1c Calcium 8.2 L Phosphorus Magnesium AST ALT Alkaline Phosphatase Lactate Dehydrogenase C-Reactive Protein Total Protein Albumin Triglycerides 254 H Arterial Blood Glucose Arterial Blood Ionized Calcium Urine WBC (Auto) U Epithel Cells (Auto) Urine Creatinine Random Vancomycin Heparin-induced Plt Ab Coronavirus (PCR) Crossmatch 03/26/21 03/26/21 03/26/21 11:45 16:36 23:33 WBC RBC Hgb Hct MCH MCHC RDW Plt Count Lymph % (Auto) [place] # (Auto) Eos # (Auto) Seg Neutrophils % Lymphocytes % (Manual) Eosinophils % (Manual) Basophils % (Manual) Nucleated RBC % Seg Neutrophils # Seg Neutrophils # Man Lymphocytes # (Manual) Monocytes # (Manual) Eosinophils # (Manual) Basophils # (Manual) Percent Retic PT INR Fibrinogen D-Dimer ABG pH POC ABG pCO2 POC ABG pO2 ABG pO2 ABG HCO3 ABG O2 Saturation ABG Base Excess ABG Hemoglobin ABG Oxyhemoglobin ABG Sodium ABG Potassium ABG Chloride ABG Glucose Oxyhemoglobin Carboxyhemoglobin Sodium Potassium Chloride Carbon Dioxide BUN Creatinine Glucose POC Glucose 123 H 121 H 120 H Hemoglobin A1c Calcium Phosphorus Magnesium AST ALT Alkaline Phosphatase Lactate Dehydrogenase C-Reactive Protein Total Protein Albumin Triglycerides Arterial Blood Glucose Arterial Blood Ionized Calcium Urine WBC (Auto) U Epithel Cells (Auto) Urine Creatinine Random Vancomycin Heparin-induced Plt Ab Coronavirus (PCR) Crossmatch 03/27/21 03/27/21 03/27/21 03:20 04:14 08:20 WBC 13.2 H RBC 2.82 L Hgb 7.9 L Hct 23.5 L MCH MCHC RDW 17.3 H Plt Count 125 L Lymph % (Auto) [place] # (Auto) Eos # (Auto) Seg Neutrophils % Lymphocytes % (Manual) Eosinophils % (Manual) Basophils % (Manual) Nucleated RBC % Seg Neutrophils # Seg Neutrophils # Man Lymphocytes # (Manual) Monocytes # (Manual) Eosinophils # (Manual) Basophils # (Manual) Percent Retic PT INR Fibrinogen D-Dimer ABG pH POC ABG pCO2 50.0 H POC ABG pO2 58.3 L ABG pO2 ABG HCO3 ABG O2 Saturation ABG Base Excess ABG Hemoglobin 11.3 L ABG Oxyhemoglobin 88.5 L ABG Sodium ABG Potassium ABG Chloride ABG Glucose 132 H Oxyhemoglobin Carboxyhemoglobin 0.2 L Sodium Potassium Chloride Carbon Dioxide BUN Creatinine Glucose POC Glucose 119 H Hemoglobin A1c Calcium Phosphorus Magnesium AST ALT Alkaline Phosphatase Lactate Dehydrogenase C-Reactive Protein Total Protein Albumin Triglycerides Arterial Blood Glucose 132 H Arterial Blood Ionized Calcium Urine WBC (Auto) U Epithel Cells (Auto) Urine Creatinine Random Vancomycin Heparin-induced Plt Ab Coronavirus (PCR) Crossmatch 03/27/21 03/27/21 03/27/21 08:20 11:39 17:32 WBC RBC Hgb Hct MCH MCHC RDW Plt Count Lymph % (Auto) [place] # (Auto) Eos # (Auto) Seg Neutrophils % Lymphocytes % (Manual) Eosinophils % (Manual) Basophils % (Manual) Nucleated RBC % Seg Neutrophils # Seg Neutrophils # Man Lymphocytes # (Manual) Monocytes # (Manual) Eosinophils # (Manual) Basophils # (Manual) Percent Retic PT INR Fibrinogen D-Dimer ABG pH POC ABG pCO2 POC ABG pO2 ABG pO2 ABG HCO3 ABG O2 Saturation ABG Base Excess ABG Hemoglobin ABG Oxyhemoglobin ABG Sodium ABG Potassium ABG Chloride ABG Glucose Oxyhemoglobin Carboxyhemoglobin Sodium Potassium Chloride Carbon Dioxide BUN 57 H Creatinine 6.8 H Glucose 131 H POC Glucose 121 H 126 H Hemoglobin A1c Calcium Phosphorus Magnesium AST ALT Alkaline Phosphatase Lactate Dehydrogenase C-Reactive Protein Total Protein Albumin Triglycerides Arterial Blood Glucose Arterial Blood Ionized Calcium Urine WBC (Auto) U Epithel Cells (Auto) Urine Creatinine Random Vancomycin Heparin-induced Plt Ab Coronavirus (PCR) Crossmatch 03/28/21 03/28/21 03/28/21 00:10 04:45 05:25 WBC RBC Hgb Hct MCH MCHC RDW Plt Count Lymph % (Auto) [place] # (Auto) Eos # (Auto) Seg Neutrophils % Lymphocytes % (Manual) Eosinophils % (Manual) Basophils % (Manual) Nucleated RBC % Seg Neutrophils # Seg Neutrophils # Man Lymphocytes # (Manual) Monocytes # (Manual) Eosinophils # (Manual) Basophils # (Manual) Percent Retic PT INR Fibrinogen D-Dimer ABG pH POC ABG pCO2 POC ABG pO2 ABG pO2 57.6 L ABG HCO3 27.1 H ABG O2 Saturation 88.5 L ABG Base Excess ABG Hemoglobin ABG Oxyhemoglobin ABG Sodium ABG Potassium ABG Chloride ABG Glucose Oxyhemoglobin 86.6 L Carboxyhemoglobin Sodium Potassium Chloride Carbon Dioxide BUN Creatinine Glucose POC Glucose 113 H 121 H Hemoglobin A1c Calcium Phosphorus Magnesium AST ALT Alkaline Phosphatase Lactate Dehydrogenase C-Reactive Protein Total Protein Albumin Triglycerides Arterial Blood Glucose Arterial Blood Ionized Calcium Urine WBC (Auto) U Epithel Cells (Auto) Urine Creatinine Random Vancomycin Heparin-induced Plt Ab Coronavirus (PCR) Crossmatch 03/28/21 03/28/21 03/28/21 09:37 09:37 11:48 WBC 16.3 H RBC 2.92 L Hgb 8.2 L Hct 24.8 L MCH MCHC RDW 17.5 H Plt Count Lymph % (Auto) 10.7 L [place] # (Auto) 0.9 H Eos # (Auto) 0.6 H Seg Neutrophils % 80.0 H Lymphocytes % (Manual) Eosinophils % (Manual) Basophils % (Manual) Nucleated RBC % Seg Neutrophils # 13.0 H Seg Neutrophils # Man Lymphocytes # (Manual) Monocytes # (Manual) Eosinophils # (Manual) Basophils # (Manual) Percent Retic PT INR Fibrinogen D-Dimer ABG pH POC ABG pCO2 POC ABG pO2 ABG pO2 ABG HCO3 ABG O2 Saturation ABG Base Excess ABG Hemoglobin ABG Oxyhemoglobin ABG Sodium ABG Potassium ABG Chloride ABG Glucose Oxyhemoglobin Carboxyhemoglobin Sodium Potassium Chloride Carbon Dioxide BUN 61 H Creatinine 7.7 H Glucose 148 H POC Glucose 123 H Hemoglobin A1c Calcium Phosphorus Magnesium AST ALT Alkaline Phosphatase Lactate Dehydrogenase C-Reactive Protein Total Protein Albumin Triglycerides Arterial Blood Glucose Arterial Blood Ionized Calcium Urine WBC (Auto) U Epithel Cells (Auto) Urine Creatinine Random Vancomycin Heparin-induced Plt Ab Coronavirus (PCR) Crossmatch 03/28/21 03/28/21 03/28/21 17:33 21:08 23:38 WBC RBC Hgb Hct MCH MCHC RDW Plt Count Lymph % (Auto) [place] # (Auto) Eos # (Auto) Seg Neutrophils % Lymphocytes % (Manual) Eosinophils % (Manual) Basophils % (Manual) Nucleated RBC % Seg Neutrophils # Seg Neutrophils # Man Lymphocytes # (Manual) Monocytes # (Manual) Eosinophils # (Manual) Basophils # (Manual) Percent Retic PT INR Fibrinogen D-Dimer ABG pH POC ABG pCO2 POC ABG pO2 80.5 L ABG pO2 ABG HCO3 ABG O2 Saturation ABG Base Excess ABG Hemoglobin 9.5 L ABG Oxyhemoglobin ABG Sodium 133.3 L ABG Potassium ABG Chloride ABG Glucose 134 H Oxyhemoglobin Carboxyhemoglobin 0.3 L Sodium Potassium Chloride Carbon Dioxide BUN Creatinine Glucose POC Glucose 128 H 112 H Hemoglobin A1c Calcium Phosphorus Magnesium AST ALT Alkaline Phosphatase Lactate Dehydrogenase C-Reactive Protein Total Protein Albumin Triglycerides Arterial Blood Glucose 134 H Arterial Blood Ionized Calcium Urine WBC (Auto) U Epithel Cells (Auto) Urine Creatinine Random Vancomycin Heparin-induced Plt Ab Coronavirus (PCR) Crossmatch 03/29/21 03/29/21 03/29/21 04:45 04:45 04:45 WBC 17.5 H RBC 3.15 L Hgb 8.8 L Hct 27.2 L MCH MCHC RDW 17.9 H Plt Count 132 L Lymph % (Auto) [place] # (Auto) Eos # (Auto) Seg Neutrophils % Lymphocytes % (Manual) Eosinophils % (Manual) Basophils % (Manual) Nucleated RBC % Seg Neutrophils # Seg Neutrophils # Man Lymphocytes # (Manual) Monocytes # (Manual) Eosinophils # (Manual) Basophils # (Manual) Percent Retic PT INR Fibrinogen D-Dimer ABG pH POC ABG pCO2 POC ABG pO2 ABG pO2 ABG HCO3 ABG O2 Saturation ABG Base Excess ABG Hemoglobin ABG Oxyhemoglobin ABG Sodium ABG Potassium ABG Chloride ABG Glucose Oxyhemoglobin Carboxyhemoglobin Sodium Potassium Chloride 97.7 L Carbon Dioxide 21 L BUN 78 H Creatinine 9.5 H Glucose 132 H POC Glucose Hemoglobin A1c Calcium Phosphorus Magnesium AST ALT Alkaline Phosphatase Lactate Dehydrogenase C-Reactive Protein Total Protein Albumin 2.2 L Triglycerides 385 H Arterial Blood Glucose Arterial Blood Ionized Calcium Urine WBC (Auto) U Epithel Cells (Auto) Urine Creatinine Random Vancomycin Heparin-induced Plt Ab Coronavirus (PCR) Crossmatch 03/29/21 03/29/21 03/29/21 11:35 16:50 21:06 WBC RBC Hgb Hct MCH MCHC RDW Plt Count Lymph % (Auto) [place] # (Auto) Eos # (Auto) Seg Neutrophils % Lymphocytes % (Manual) Eosinophils % (Manual) Basophils % (Manual) Nucleated RBC % Seg Neutrophils # Seg Neutrophils # Man Lymphocytes # (Manual) Monocytes # (Manual) Eosinophils # (Manual) Basophils # (Manual) Percent Retic PT INR Fibrinogen D-Dimer ABG pH POC ABG pCO2 POC ABG pO2 ABG pO2 64.9 L ABG HCO3 ABG O2 Saturation ABG Base Excess -5.2 L ABG Hemoglobin ABG Oxyhemoglobin ABG Sodium ABG Potassium ABG Chloride ABG Glucose Oxyhemoglobin 85.1 L Carboxyhemoglobin Sodium Potassium Chloride Carbon Dioxide BUN Creatinine Glucose POC Glucose 148 H 133 H Hemoglobin A1c Calcium Phosphorus Magnesium AST ALT Alkaline Phosphatase Lactate Dehydrogenase C-Reactive Protein Total Protein Albumin Triglycerides Arterial Blood Glucose Arterial Blood Ionized Calcium Urine WBC (Auto) U Epithel Cells (Auto) Urine Creatinine Random Vancomycin Heparin-induced Plt Ab Coronavirus (PCR) Crossmatch 03/29/21 03/30/21 03/30/21 Unknown 00:13 04:00 WBC 15.7 H RBC 3.18 L Hgb 8.6 L Hct 27.3 L MCH 27 L MCHC RDW 18.0 H Plt Count 86 L Lymph % (Auto) [place] # (Auto) Eos # (Auto) Seg Neutrophils % Lymphocytes % (Manual) Eosinophils % (Manual) Basophils % (Manual) Nucleated RBC % Seg Neutrophils # Seg Neutrophils # Man Lymphocytes # (Manual) Monocytes # (Manual) Eosinophils # (Manual) Basophils # (Manual) Percent Retic PT INR Fibrinogen D-Dimer ABG pH 7.258 L POC ABG pCO2 POC ABG pO2 ABG pO2 ABG HCO3 ABG O2 Saturation ABG Base Excess -4.9 L ABG Hemoglobin 8.8 L ABG Oxyhemoglobin ABG Sodium ABG Potassium ABG Chloride ABG Glucose Oxyhemoglobin 93.9 L Carboxyhemoglobin Sodium Potassium Chloride Carbon Dioxide BUN Creatinine Glucose POC Glucose 129 H Hemoglobin A1c Calcium Phosphorus Magnesium AST ALT Alkaline Phosphatase Lactate Dehydrogenase C-Reactive Protein Total Protein Albumin Triglycerides Arterial Blood Glucose Arterial Blood Ionized Calcium Urine WBC (Auto) U Epithel Cells (Auto) Urine Creatinine Random Vancomycin Heparin-induced Plt Ab Coronavirus (PCR) Crossmatch 03/30/21 03/30/21 03/30/21 04:00 04:00 06:02 WBC RBC Hgb Hct MCH MCHC RDW Plt Count Lymph % (Auto) [place] # (Auto) Eos # (Auto) Seg Neutrophils % Lymphocytes % (Manual) Eosinophils % (Manual) Basophils % (Manual) Nucleated RBC % Seg Neutrophils # Seg Neutrophils # Man Lymphocytes # (Manual) Monocytes # (Manual) Eosinophils # (Manual) Basophils # (Manual) Percent Retic PT INR Fibrinogen D-Dimer 2607.12 H ABG pH POC ABG pCO2 POC ABG pO2 ABG pO2 ABG HCO3 ABG O2 Saturation ABG Base Excess ABG Hemoglobin ABG Oxyhemoglobin ABG Sodium ABG Potassium ABG Chloride ABG Glucose Oxyhemoglobin Carboxyhemoglobin Sodium 133 L Potassium 5.2 H D Chloride 91.5 L Carbon Dioxide 18 L BUN 101 H Creatinine 10.6 H Glucose 149 H POC Glucose 130 H Hemoglobin A1c Calcium Phosphorus 10.30 H Magnesium AST ALT Alkaline Phosphatase Lactate Dehydrogenase C-Reactive Protein 21.50 H Total Protein Albumin Triglycerides Arterial Blood Glucose Arterial Blood Ionized Calcium Urine WBC (Auto) U Epithel Cells (Auto) Urine Creatinine Random Vancomycin Heparin-induced Plt Ab Coronavirus (PCR) Crossmatch 03/30/21 03/30/21 03/30/21 10:36 11:48 17:20 WBC RBC Hgb Hct MCH MCHC RDW Plt Count Lymph % (Auto) [place] # (Auto) Eos # (Auto) Seg Neutrophils % Lymphocytes % (Manual) Eosinophils % (Manual) Basophils % (Manual) Nucleated RBC % Seg Neutrophils # Seg Neutrophils # Man Lymphocytes # (Manual) Monocytes # (Manual) Eosinophils # (Manual) Basophils # (Manual) Percent Retic PT INR Fibrinogen D-Dimer ABG pH 7.224 L POC ABG pCO2 49.1 H POC ABG pO2 61.5 L ABG pO2 ABG HCO3 ABG O2 Saturation ABG Base Excess ABG Hemoglobin 10.2 L ABG Oxyhemoglobin 86.2 L ABG Sodium 129.6 L ABG Potassium 5.4 H ABG Chloride 96.0 L ABG Glucose 161 H Oxyhemoglobin Carboxyhemoglobin Sodium Potassium Chloride Carbon Dioxide BUN Creatinine Glucose POC Glucose 163 H 130 H Hemoglobin A1c Calcium Phosphorus Magnesium AST ALT Alkaline Phosphatase Lactate Dehydrogenase C-Reactive Protein Total Protein Albumin Triglycerides Arterial Blood Glucose 161 H Arterial Blood Ionized Calcium 4.4 L Urine WBC (Auto) U Epithel Cells (Auto) Urine Creatinine Random Vancomycin Heparin-induced Plt Ab Coronavirus (PCR) Crossmatch 03/30/21 03/31/21 03/31/21 23:49 00:28 05:20 WBC 17.3 H RBC 2.99 L Hgb 8.2 L Hct 25.3 L MCH 27 L MCHC RDW 18.3 H Plt Count 126 L Lymph % (Auto) [place] # (Auto) Eos # (Auto) Seg Neutrophils % Lymphocytes % (Manual) Eosinophils % (Manual) Basophils % (Manual) Nucleated RBC % Seg Neutrophils # Seg Neutrophils # Man Lymphocytes # (Manual) Monocytes # (Manual) Eosinophils # (Manual) Basophils # (Manual) Percent Retic PT INR Fibrinogen D-Dimer ABG pH 7.249 L POC ABG pCO2 POC ABG pO2 77.7 L ABG pO2 ABG HCO3 ABG O2 Saturation ABG Base Excess ABG Hemoglobin 9.0 L ABG Oxyhemoglobin 92.9 L ABG Sodium 130.4 L ABG Potassium 4.7 H ABG Chloride ABG Glucose 166 H Oxyhemoglobin Carboxyhemoglobin 0.4 L Sodium Potassium Chloride Carbon Dioxide BUN Creatinine Glucose POC Glucose 143 H Hemoglobin A1c Calcium Phosphorus Magnesium AST ALT Alkaline Phosphatase Lactate Dehydrogenase C-Reactive Protein Total Protein Albumin Triglycerides Arterial Blood Glucose 166 H Arterial Blood Ionized Calcium 4.3 L Urine WBC (Auto) U Epithel Cells (Auto) Urine Creatinine Random Vancomycin Heparin-induced Plt Ab Coronavirus (PCR) Crossmatch 03/31/21 03/31/21 03/31/21 05:20 06:18 09:44 WBC RBC Hgb Hct MCH MCHC RDW Plt Count Lymph % (Auto) [place] # (Auto) Eos # (Auto) Seg Neutrophils % Lymphocytes % (Manual) Eosinophils % (Manual) Basophils % (Manual) Nucleated RBC % Seg Neutrophils # Seg Neutrophils # Man Lymphocytes # (Manual) Monocytes # (Manual) Eosinophils # (Manual) Basophils # (Manual) Percent Retic PT INR Fibrinogen D-Dimer ABG pH 7.247 L POC ABG pCO2 POC ABG pO2 ABG pO2 ABG HCO3 ABG O2 Saturation 94.4 L ABG Base Excess -5.1 L ABG Hemoglobin 8.2 L ABG Oxyhemoglobin ABG Sodium ABG Potassium ABG Chloride ABG Glucose Oxyhemoglobin 92.4 L Carboxyhemoglobin Sodium Potassium Chloride Carbon Dioxide BUN Creatinine Glucose POC Glucose 155 H Hemoglobin A1c Calcium Phosphorus 8.20 H D Magnesium AST ALT Alkaline Phosphatase Lactate Dehydrogenase C-Reactive Protein Total Protein Albumin Triglycerides Arterial Blood Glucose Arterial Blood Ionized Calcium Urine WBC (Auto) U Epithel Cells (Auto) Urine Creatinine Random Vancomycin Heparin-induced Plt Ab Coronavirus (PCR) Crossmatch 03/31/21 03/31/21 03/31/21 09:49 09:55 09:55 WBC RBC Hgb Hct MCH MCHC RDW Plt Count Lymph % (Auto) [place] # (Auto) Eos # (Auto) Seg Neutrophils % Lymphocytes % (Manual) Eosinophils % (Manual) Basophils % (Manual) Nucleated RBC % Seg Neutrophils # Seg Neutrophils # Man Lymphocytes # (Manual) Monocytes # (Manual) Eosinophils # (Manual) Basophils # (Manual) Percent Retic 4.52 H PT 16.5 H INR 1.20 H Fibrinogen D-Dimer ABG pH POC ABG pCO2 POC ABG pO2 ABG pO2 ABG HCO3 ABG O2 Saturation ABG Base Excess ABG Hemoglobin ABG Oxyhemoglobin ABG Sodium ABG Potassium ABG Chloride ABG Glucose Oxyhemoglobin Carboxyhemoglobin Sodium 133 L Potassium Chloride 92.8 L Carbon Dioxide 20 L BUN 87 H Creatinine 8.9 H Glucose 177 H POC Glucose Hemoglobin A1c Calcium 8.2 L Phosphorus Magnesium AST 169 H ALT Alkaline Phosphatase 187 H Lactate Dehydrogenase C-Reactive Protein Total Protein Albumin 2.3 L Triglycerides Arterial Blood Glucose Arterial Blood Ionized Calcium Urine WBC (Auto) U Epithel Cells (Auto) Urine Creatinine Random Vancomycin Heparin-induced Plt Ab Coronavirus (PCR) Crossmatch 03/31/21 03/31/21 03/31/21 09:55 09:55 11:25 WBC RBC Hgb Hct MCH MCHC RDW Plt Count Lymph % (Auto) [place] # (Auto) Eos # (Auto) Seg Neutrophils % Lymphocytes % (Manual) Eosinophils % (Manual) Basophils % (Manual) Nucleated RBC % Seg Neutrophils # Seg Neutrophils # Man Lymphocytes # (Manual) Monocytes # (Manual) Eosinophils # (Manual) Basophils # (Manual) Percent Retic PT INR Fibrinogen 491 H D-Dimer ABG pH POC ABG pCO2 POC ABG pO2 ABG pO2 ABG HCO3 ABG O2 Saturation ABG Base Excess ABG Hemoglobin ABG Oxyhemoglobin ABG Sodium ABG Potassium ABG Chloride ABG Glucose Oxyhemoglobin Carboxyhemoglobin Sodium Potassium Chloride Carbon Dioxide BUN Creatinine Glucose POC Glucose 178 H Hemoglobin A1c Calcium Phosphorus Magnesium AST ALT Alkaline Phosphatase Lactate Dehydrogenase 509 H C-Reactive Protein Total Protein Albumin Triglycerides Arterial Blood Glucose Arterial Blood Ionized Calcium Urine WBC (Auto) U Epithel Cells (Auto) Urine Creatinine Random Vancomycin Heparin-induced Plt Ab Coronavirus (PCR) Crossmatch 03/31/21 03/31/21 03/31/21 12:30 17:40 21:00 WBC RBC Hgb Hct MCH MCHC RDW Plt Count Lymph % (Auto) [place] # (Auto) Eos # (Auto) Seg Neutrophils % Lymphocytes % (Manual) Eosinophils % (Manual) Basophils % (Manual) Nucleated RBC % Seg Neutrophils # Seg Neutrophils # Man Lymphocytes # (Manual) Monocytes # (Manual) Eosinophils # (Manual) Basophils # (Manual) Percent Retic PT INR Fibrinogen D-Dimer ABG pH 7.235 L 7.216 L POC ABG pCO2 POC ABG pO2 ABG pO2 76.8 L 113.9 H ABG HCO3 ABG O2 Saturation 93.2 L ABG Base Excess -5.3 L -7.3 L ABG Hemoglobin 6.3 L 8.0 L ABG Oxyhemoglobin ABG Sodium ABG Potassium ABG Chloride ABG Glucose Oxyhemoglobin 91.1 L Carboxyhemoglobin Sodium Potassium Chloride Carbon Dioxide BUN Creatinine Glucose POC Glucose 245 H Hemoglobin A1c Calcium Phosphorus Magnesium AST ALT Alkaline Phosphatase Lactate Dehydrogenase C-Reactive Protein Total Protein Albumin Triglycerides Arterial Blood Glucose Arterial Blood Ionized Calcium Urine WBC (Auto) U Epithel Cells (Auto) Urine Creatinine Random Vancomycin Heparin-induced Plt Ab Coronavirus (PCR) Crossmatch 04/01/21 04/01/21 04/01/21 00:11 05:09 08:25 WBC RBC Hgb Hct MCH MCHC RDW Plt Count Lymph % (Auto) [place] # (Auto) Eos # (Auto) Seg Neutrophils % Lymphocytes % (Manual) Eosinophils % (Manual) Basophils % (Manual) Nucleated RBC % Seg Neutrophils # Seg Neutrophils # Man Lymphocytes # (Manual) Monocytes # (Manual) Eosinophils # (Manual) Basophils # (Manual) Percent Retic PT INR Fibrinogen D-Dimer ABG pH 7.225 L POC ABG pCO2 POC ABG pO2 ABG pO2 76.4 L ABG HCO3 ABG O2 Saturation 92.2 L ABG Base Excess -7.6 L ABG Hemoglobin 7.3 L ABG Oxyhemoglobin ABG Sodium ABG Potassium ABG Chloride ABG Glucose Oxyhemoglobin 90.2 L Carboxyhemoglobin Sodium Potassium Chloride Carbon Dioxide BUN Creatinine Glucose POC Glucose 209 H 173 H Hemoglobin A1c Calcium Phosphorus Magnesium AST ALT Alkaline Phosphatase Lactate Dehydrogenase C-Reactive Protein Total Protein Albumin Triglycerides Arterial Blood Glucose Arterial Blood Ionized Calcium Urine WBC (Auto) U Epithel Cells (Auto) Urine Creatinine Random Vancomycin Heparin-induced Plt Ab Coronavirus (PCR) Crossmatch 04/01/21 04/01/21 04/01/21 12:01 12:05 17:55 WBC RBC Hgb Hct MCH MCHC RDW Plt Count Lymph % (Auto) [place] # (Auto) Eos # (Auto) Seg Neutrophils % Lymphocytes % (Manual) Eosinophils % (Manual) Basophils % (Manual) Nucleated RBC % Seg Neutrophils # Seg Neutrophils # Man Lymphocytes # (Manual) Monocytes # (Manual) Eosinophils # (Manual) Basophils # (Manual) Percent Retic PT INR Fibrinogen D-Dimer ABG pH POC ABG pCO2 POC ABG pO2 ABG pO2 ABG HCO3 ABG O2 Saturation ABG Base Excess ABG Hemoglobin ABG Oxyhemoglobin ABG Sodium ABG Potassium ABG Chloride ABG Glucose Oxyhemoglobin Carboxyhemoglobin Sodium Potassium 5.9 H Chloride Carbon Dioxide BUN Creatinine Glucose POC Glucose 202 H 217 H Hemoglobin A1c Calcium Phosphorus Magnesium AST ALT Alkaline Phosphatase Lactate Dehydrogenase C-Reactive Protein Total Protein Albumin Triglycerides Arterial Blood Glucose Arterial Blood Ionized Calcium Urine WBC (Auto) U Epithel Cells (Auto) Urine Creatinine Random Vancomycin Heparin-induced Plt Ab Coronavirus (PCR) Crossmatch 04/01/21 04/01/21 04/01/21 Unknown Unknown 23:59 WBC 27.2 H RBC 3.08 L Hgb 8.4 L Hct 26.0 L MCH 27 L MCHC RDW 18.5 H Plt Count Lymph % (Auto) [place] # (Auto) Eos # (Auto) Seg Neutrophils % Lymphocytes % (Manual) Eosinophils % (Manual) Basophils % (Manual) Nucleated RBC % Seg Neutrophils # Seg Neutrophils # Man Lymphocytes # (Manual) Monocytes # (Manual) Eosinophils # (Manual) Basophils # (Manual) Percent Retic PT INR Fibrinogen D-Dimer ABG pH POC ABG pCO2 POC ABG pO2 ABG pO2 ABG HCO3 ABG O2 Saturation ABG Base Excess ABG Hemoglobin ABG Oxyhemoglobin ABG Sodium ABG Potassium ABG Chloride ABG Glucose Oxyhemoglobin Carboxyhemoglobin Sodium 132 L Potassium 6.6 H* D Chloride 91.3 L Carbon Dioxide 17 L BUN 104 H Creatinine 9.3 H Glucose 199 H POC Glucose 172 H Hemoglobin A1c Calcium 8.3 L Phosphorus Magnesium AST 236 H ALT 93 H Alkaline Phosphatase 191 H Lactate Dehydrogenase C-Reactive Protein Total Protein Albumin 2.4 L Triglycerides Arterial Blood Glucose Arterial Blood Ionized Calcium Urine WBC (Auto) U Epithel Cells (Auto) Urine Creatinine Random Vancomycin Heparin-induced Plt Ab Coronavirus (PCR) Crossmatch 04/02/21 04/02/21 04/02/21 04:00 04:00 05:00 WBC 31.0 H RBC 2.93 L Hgb 8.0 L Hct 24.7 L MCH 27 L MCHC RDW 19.2 H Plt Count 131 L Lymph % (Auto) [place] # (Auto) Eos # (Auto) Seg Neutrophils % Lymphocytes % (Manual) Eosinophils % (Manual) Basophils % (Manual) Nucleated RBC % Seg Neutrophils # Seg Neutrophils # Man Lymphocytes # (Manual) Monocytes # (Manual) Eosinophils # (Manual) Basophils # (Manual) Percent Retic PT 16.0 H INR 1.16 H Fibrinogen D-Dimer ABG pH POC ABG pCO2 POC ABG pO2 ABG pO2 ABG HCO3 ABG O2 Saturation ABG Base Excess ABG Hemoglobin ABG Oxyhemoglobin ABG Sodium ABG Potassium ABG Chloride ABG Glucose Oxyhemoglobin Carboxyhemoglobin Sodium 135 L Potassium 5.3 H Chloride 96.1 L Carbon Dioxide 18 L BUN 80 H Creatinine 6.8 H Glucose 174 H POC Glucose Hemoglobin A1c Calcium 7.7 L Phosphorus Magnesium AST 106 H ALT 60 H Alkaline Phosphatase Lactate Dehydrogenase C-Reactive Protein Total Protein 5.9 L Albumin 3.5 L Triglycerides 579 H Arterial Blood Glucose Arterial Blood Ionized Calcium Urine WBC (Auto) U Epithel Cells (Auto) Urine Creatinine Random Vancomycin Heparin-induced Plt Ab Coronavirus (PCR) Crossmatch 04/02/21 04/02/21 04/02/21 05:09 08:55 11:06 WBC RBC Hgb Hct MCH MCHC RDW Plt Count Lymph % (Auto) [place] # (Auto) Eos # (Auto) Seg Neutrophils % Lymphocytes % (Manual) Eosinophils % (Manual) Basophils % (Manual) Nucleated RBC % Seg Neutrophils # Seg Neutrophils # Man Lymphocytes # (Manual) Monocytes # (Manual) Eosinophils # (Manual) Basophils # (Manual) Percent Retic PT INR Fibrinogen D-Dimer ABG pH 7.188 L POC ABG pCO2 58.3 H POC ABG pO2 132.8 H ABG pO2 ABG HCO3 ABG O2 Saturation ABG Base Excess ABG Hemoglobin 8.4 L ABG Oxyhemoglobin ABG Sodium ABG Potassium 5.0 H ABG Chloride 97.0 L ABG Glucose 156 H Oxyhemoglobin Carboxyhemoglobin 0.4 L Sodium Potassium Chloride Carbon Dioxide BUN Creatinine Glucose POC Glucose 148 H 167 H Hemoglobin A1c Calcium Phosphorus Magnesium AST ALT Alkaline Phosphatase Lactate Dehydrogenase C-Reactive Protein Total Protein Albumin Triglycerides Arterial Blood Glucose 156 H Arterial Blood Ionized Calcium 4.2 L Urine WBC (Auto) U Epithel Cells (Auto) Urine Creatinine Random Vancomycin Heparin-induced Plt Ab Coronavirus (PCR) Crossmatch 04/02/21 04/02/21 04/03/21 17:57 20:40 00:28 WBC RBC Hgb Hct MCH MCHC RDW Plt Count Lymph % (Auto) [place] # (Auto) Eos # (Auto) Seg Neutrophils % Lymphocytes % (Manual) Eosinophils % (Manual) Basophils % (Manual) Nucleated RBC % Seg Neutrophils # Seg Neutrophils # Man Lymphocytes # (Manual) Monocytes # (Manual) Eosinophils # (Manual) Basophils # (Manual) Percent Retic PT INR Fibrinogen D-Dimer ABG pH POC ABG pCO2 POC ABG pO2 ABG pO2 111.9 H ABG HCO3 18.9 L ABG O2 Saturation ABG Base Excess -9.9 L ABG Hemoglobin ABG Oxyhemoglobin ABG Sodium ABG Potassium ABG Chloride ABG Glucose Oxyhemoglobin Carboxyhemoglobin Sodium Potassium Chloride Carbon Dioxide BUN Creatinine Glucose POC Glucose 205 H 217 H Hemoglobin A1c Calcium Phosphorus Magnesium AST ALT Alkaline Phosphatase Lactate Dehydrogenase C-Reactive Protein Total Protein Albumin Triglycerides Arterial Blood Glucose Arterial Blood Ionized Calcium Urine WBC (Auto) U Epithel Cells (Auto) Urine Creatinine Random Vancomycin Heparin-induced Plt Ab Coronavirus (PCR) Crossmatch 04/03/21 04/03/21 04/03/21 03:39 04:30 04:30 WBC 31.1 H RBC 2.78 L Hgb 8.0 L Hct 24.0 L MCH MCHC RDW 19.0 H Plt Count Lymph % (Auto) [place] # (Auto) Eos # (Auto) Seg Neutrophils % Lymphocytes % (Manual) Eosinophils % (Manual) 27.0 H Basophils % (Manual) 2.0 H Nucleated RBC % Seg Neutrophils # Seg Neutrophils # Man 13.7 H Lymphocytes # (Manual) 8.4 H Monocytes # (Manual) Eosinophils # (Manual) 8.4 H Basophils # (Manual) 0.6 H Percent Retic PT INR Fibrinogen D-Dimer ABG pH POC ABG pCO2 POC ABG pO2 ABG pO2 ABG HCO3 ABG O2 Saturation ABG Base Excess ABG Hemoglobin ABG Oxyhemoglobin ABG Sodium ABG Potassium ABG Chloride ABG Glucose Oxyhemoglobin Carboxyhemoglobin Sodium 132 L Potassium 5.8 H Chloride 94.5 L Carbon Dioxide 16 L BUN 97 H Creatinine 7.7 H Glucose 230 H POC Glucose 201 H Hemoglobin A1c Calcium 7.6 L Phosphorus Magnesium AST 47 H ALT Alkaline Phosphatase 146 H Lactate Dehydrogenase C-Reactive Protein Total Protein 5.2 L Albumin 3.4 L Triglycerides Arterial Blood Glucose Arterial Blood Ionized Calcium Urine WBC (Auto) U Epithel Cells (Auto) Urine Creatinine Random Vancomycin Heparin-induced Plt Ab Coronavirus (PCR) Crossmatch 04/03/21 04/03/21 04/03/21 04:30 08:31 11:29 WBC RBC Hgb Hct MCH MCHC RDW Plt Count Lymph % (Auto) [place] # (Auto) Eos # (Auto) Seg Neutrophils % Lymphocytes % (Manual) Eosinophils % (Manual) Basophils % (Manual) Nucleated RBC % Seg Neutrophils # Seg Neutrophils # Man Lymphocytes # (Manual) Monocytes # (Manual) Eosinophils # (Manual) Basophils # (Manual) Percent Retic PT INR Fibrinogen D-Dimer ABG pH 7.195 L* POC ABG pCO2 POC ABG pO2 ABG pO2 102.6 H ABG HCO3 ABG O2 Saturation ABG Base Excess -7.2 L ABG Hemoglobin 8.0 L ABG Oxyhemoglobin ABG Sodium ABG Potassium ABG Chloride ABG Glucose Oxyhemoglobin 94.7 L Carboxyhemoglobin Sodium Potassium Chloride Carbon Dioxide BUN Creatinine Glucose POC Glucose 230 H Hemoglobin A1c Calcium Phosphorus 10.30 H Magnesium AST ALT Alkaline Phosphatase Lactate Dehydrogenase C-Reactive Protein Total Protein Albumin Triglycerides Arterial Blood Glucose Arterial Blood Ionized Calcium Urine WBC (Auto) U Epithel Cells (Auto) Urine Creatinine Random Vancomycin Heparin-induced Plt Ab Coronavirus (PCR) Crossmatch 04/03/21 04/03/21 04/04/21 16:53 20:45 05:00 WBC 28.8 H RBC 2.64 L Hgb 8.7 L Hct 22.2 L MCH 33 H MCHC 39 H* RDW 18.6 H Plt Count Lymph % (Auto) [place] # (Auto) Eos # (Auto) Seg Neutrophils % Lymphocytes % (Manual) Eosinophils % (Manual) Basophils % (Manual) Nucleated RBC % Seg Neutrophils # Seg Neutrophils # Man Lymphocytes # (Manual) Monocytes # (Manual) Eosinophils # (Manual) Basophils # (Manual) Percent Retic PT INR Fibrinogen D-Dimer ABG pH POC ABG pCO2 POC ABG pO2 ABG pO2 ABG HCO3 ABG O2 Saturation ABG Base Excess ABG Hemoglobin ABG Oxyhemoglobin ABG Sodium ABG Potassium ABG Chloride ABG Glucose Oxyhemoglobin 94.8 L Carboxyhemoglobin Sodium Potassium Chloride Carbon Dioxide BUN Creatinine Glucose POC Glucose 227 H Hemoglobin A1c Calcium Phosphorus Magnesium AST ALT Alkaline Phosphatase Lactate Dehydrogenase C-Reactive Protein Total Protein Albumin Triglycerides Arterial Blood Glucose Arterial Blood Ionized Calcium Urine WBC (Auto) U Epithel Cells (Auto) Urine Creatinine Random Vancomycin Heparin-induced Plt Ab Coronavirus (PCR) Crossmatch 04/04/21 04/04/21 04/04/21 05:29 07:55 09:20 WBC RBC Hgb Hct MCH MCHC RDW Plt Count Lymph % (Auto) [place] # (Auto) Eos # (Auto) Seg Neutrophils % Lymphocytes % (Manual) Eosinophils % (Manual) Basophils % (Manual) Nucleated RBC % Seg Neutrophils # Seg Neutrophils # Man Lymphocytes # (Manual) Monocytes # (Manual) Eosinophils # (Manual) Basophils # (Manual) Percent Retic PT INR Fibrinogen D-Dimer ABG pH POC ABG pCO2 POC ABG pO2 ABG pO2 ABG HCO3 ABG O2 Saturation ABG Base Excess ABG Hemoglobin ABG Oxyhemoglobin ABG Sodium ABG Potassium ABG Chloride ABG Glucose Oxyhemoglobin Carboxyhemoglobin Sodium 133 L Potassium Chloride 91.0 L Carbon Dioxide 20 L BUN 75 H Creatinine 4.7 H Glucose 184 H POC Glucose 133 H Hemoglobin A1c Calcium 7.3 L Phosphorus Magnesium AST < 5 L ALT < 5 L Alkaline Phosphatase 200 H Lactate Dehydrogenase C-Reactive Protein Total Protein 5.6 L Albumin 2.9 L Triglycerides Arterial Blood Glucose Arterial Blood Ionized Calcium Urine WBC (Auto) U Epithel Cells (Auto) Urine Creatinine Random Vancomycin Heparin-induced Plt Ab Coronavirus (PCR) Crossmatch See Detail 04/04/21 04/04/21 04/04/21 12:01 14:06 17:05 WBC RBC Hgb Hct MCH MCHC RDW Plt Count Lymph % (Auto) [place] # (Auto) Eos # (Auto) Seg Neutrophils % Lymphocytes % (Manual) Eosinophils % (Manual) Basophils % (Manual) Nucleated RBC % Seg Neutrophils # Seg Neutrophils # Man Lymphocytes # (Manual) Monocytes # (Manual) Eosinophils # (Manual) Basophils # (Manual) Percent Retic PT INR Fibrinogen D-Dimer ABG pH 7.162 L* POC ABG pCO2 POC ABG pO2 ABG pO2 91.3 H ABG HCO3 ABG O2 Saturation 94.8 L ABG Base Excess -4.0 L ABG Hemoglobin 7.6 L ABG Oxyhemoglobin ABG Sodium ABG Potassium ABG Chloride ABG Glucose Oxyhemoglobin 92.4 L Carboxyhemoglobin Sodium Potassium Chloride Carbon Dioxide BUN Creatinine Glucose POC Glucose 199 H 166 H Hemoglobin A1c Calcium Phosphorus Magnesium AST ALT Alkaline Phosphatase Lactate Dehydrogenase C-Reactive Protein Total Protein Albumin Triglycerides Arterial Blood Glucose Arterial Blood Ionized Calcium Urine WBC (Auto) U Epithel Cells (Auto) Urine Creatinine Random Vancomycin Heparin-induced Plt Ab Coronavirus (PCR) Crossmatch 04/04/21 04/04/21 04/05/21 21:14 23:30 05:20 WBC RBC Hgb Hct MCH MCHC RDW Plt Count Lymph % (Auto) [place] # (Auto) Eos # (Auto) Seg Neutrophils % Lymphocytes % (Manual) Eosinophils % (Manual) Basophils % (Manual) Nucleated RBC % Seg Neutrophils # Seg Neutrophils # Man Lymphocytes # (Manual) Monocytes # (Manual) Eosinophils # (Manual) Basophils # (Manual) Percent Retic PT INR Fibrinogen D-Dimer ABG pH 7.257 L POC ABG pCO2 POC ABG pO2 ABG pO2 73.8 L ABG HCO3 ABG O2 Saturation 91.6 L ABG Base Excess -2.7 L ABG Hemoglobin 8.6 L ABG Oxyhemoglobin ABG Sodium ABG Potassium ABG Chloride ABG Glucose Oxyhemoglobin 89.1 L Carboxyhemoglobin Sodium 131 L Potassium Chloride 91.2 L Carbon Dioxide 17 L BUN 85 H Creatinine 5.1 H Glucose 183 H POC Glucose 158 H Hemoglobin A1c Calcium 7.4 L Phosphorus Magnesium AST ALT Alkaline Phosphatase 190 H Lactate Dehydrogenase 394 H C-Reactive Protein Total Protein 5.8 L Albumin 2.7 L Triglycerides Arterial Blood Glucose Arterial Blood Ionized Calcium Urine WBC (Auto) U Epithel Cells (Auto) Urine Creatinine Random Vancomycin Heparin-induced Plt Ab Coronavirus (PCR) Crossmatch 04/05/21 04/05/21 04/05/21 05:20 05:20 05:24 WBC 30.8 H RBC 2.83 L Hgb 8.4 L Hct 24.4 L MCH MCHC 35 H RDW 18.9 H Plt Count Lymph % (Auto) [place] # (Auto) Eos # (Auto) Seg Neutrophils % Lymphocytes % (Manual) Eosinophils % (Manual) Basophils % (Manual) Nucleated RBC % Seg Neutrophils # Seg Neutrophils # Man Lymphocytes # (Manual) Monocytes # (Manual) Eosinophils # (Manual) Basophils # (Manual) Percent Retic PT INR Fibrinogen D-Dimer ABG pH POC ABG pCO2 POC ABG pO2 ABG pO2 ABG HCO3 ABG O2 Saturation ABG Base Excess ABG Hemoglobin ABG Oxyhemoglobin ABG Sodium ABG Potassium ABG Chloride ABG Glucose Oxyhemoglobin Carboxyhemoglobin Sodium Potassium Chloride Carbon Dioxide BUN Creatinine Glucose POC Glucose 162 H Hemoglobin A1c Calcium Phosphorus 9.40 H Magnesium AST ALT Alkaline Phosphatase Lactate Dehydrogenase C-Reactive Protein Total Protein Albumin Triglycerides Arterial Blood Glucose Arterial Blood Ionized Calcium Urine WBC (Auto) U Epithel Cells (Auto) Urine Creatinine Random Vancomycin Heparin-induced Plt Ab Coronavirus (PCR) Crossmatch 04/05/21 04/05/21 04/05/21 11:31 12:23 21:40 WBC RBC Hgb Hct MCH MCHC RDW Plt Count Lymph % (Auto) [place] # (Auto) Eos # (Auto) Seg Neutrophils % Lymphocytes % (Manual) Eosinophils % (Manual) Basophils % (Manual) Nucleated RBC % Seg Neutrophils # Seg Neutrophils # Man Lymphocytes # (Manual) Monocytes # (Manual) Eosinophils # (Manual) Basophils # (Manual) Percent Retic PT INR Fibrinogen D-Dimer ABG pH 7.325 L POC ABG pCO2 POC ABG pO2 ABG pO2 65.6 L ABG HCO3 ABG O2 Saturation 91.2 L ABG Base Excess ABG Hemoglobin 6.7 L ABG Oxyhemoglobin ABG Sodium ABG Potassium ABG Chloride ABG Glucose Oxyhemoglobin 89.0 L Carboxyhemoglobin Sodium Potassium Chloride Carbon Dioxide BUN Creatinine Glucose POC Glucose 196 H 190 H Hemoglobin A1c Calcium Phosphorus Magnesium AST ALT Alkaline Phosphatase Lactate Dehydrogenase C-Reactive Protein Total Protein Albumin Triglycerides Arterial Blood Glucose Arterial Blood Ionized Calcium Urine WBC (Auto) U Epithel Cells (Auto) Urine Creatinine Random Vancomycin Heparin-induced Plt Ab Coronavirus (PCR) Crossmatch 04/05/21 04/06/21 04/06/21 23:53 05:35 06:00 WBC RBC Hgb Hct MCH MCHC RDW Plt Count Lymph % (Auto) [place] # (Auto) Eos # (Auto) Seg Neutrophils % Lymphocytes % (Manual) Eosinophils % (Manual) Basophils % (Manual) Nucleated RBC % Seg Neutrophils # Seg Neutrophils # Man Lymphocytes # (Manual) Monocytes # (Manual) Eosinophils # (Manual) Basophils # (Manual) Percent Retic PT INR Fibrinogen D-Dimer ABG pH POC ABG pCO2 POC ABG pO2 ABG pO2 ABG HCO3 ABG O2 Saturation ABG Base Excess ABG Hemoglobin ABG Oxyhemoglobin ABG Sodium ABG Potassium ABG Chloride ABG Glucose Oxyhemoglobin Carboxyhemoglobin Sodium 132 L Potassium Chloride 90.7 L Carbon Dioxide 21 L BUN 74 H Creatinine 4.3 H Glucose 156 H POC Glucose 192 H 139 H Hemoglobin A1c Calcium 7.9 L Phosphorus 6.90 H D Magnesium AST < 5 L ALT < 5 L Alkaline Phosphatase 185 H Lactate Dehydrogenase C-Reactive Protein Total Protein 5.7 L Albumin 2.5 L Triglycerides Arterial Blood Glucose Arterial Blood Ionized Calcium Urine WBC (Auto) U Epithel Cells (Auto) Urine Creatinine Random Vancomycin Heparin-induced Plt Ab Coronavirus (PCR) Crossmatch 04/06/21 04/06/21 04/06/21 06:00 11:27 18:01 WBC 26.7 H RBC 2.39 L Hgb 6.9 L Hct 20.1 L MCH MCHC RDW 18.7 H Plt Count Lymph % (Auto) [place] # (Auto) Eos # (Auto) Seg Neutrophils % Lymphocytes % (Manual) Eosinophils % (Manual) Basophils % (Manual) Nucleated RBC % Seg Neutrophils # Seg Neutrophils # Man Lymphocytes # (Manual) Monocytes # (Manual) Eosinophils # (Manual) Basophils # (Manual) Percent Retic PT INR Fibrinogen D-Dimer ABG pH POC ABG pCO2 POC ABG pO2 ABG pO2 ABG HCO3 ABG O2 Saturation ABG Base Excess ABG Hemoglobin ABG Oxyhemoglobin ABG Sodium ABG Potassium ABG Chloride ABG Glucose Oxyhemoglobin Carboxyhemoglobin Sodium Potassium Chloride Carbon Dioxide BUN Creatinine Glucose POC Glucose 166 H 159 H Hemoglobin A1c Calcium Phosphorus Magnesium AST ALT Alkaline Phosphatase Lactate Dehydrogenase C-Reactive Protein Total Protein Albumin Triglycerides Arterial Blood Glucose Arterial Blood Ionized Calcium Urine WBC (Auto) U Epithel Cells (Auto) Urine Creatinine Random Vancomycin Heparin-induced Plt Ab Coronavirus (PCR) Crossmatch 04/06/21 04/06/21 04/06/21 20:50 23:43 Unknown WBC RBC Hgb Hct MCH MCHC RDW Plt Count Lymph % (Auto) [place] # (Auto) Eos # (Auto) Seg Neutrophils % Lymphocytes % (Manual) Eosinophils % (Manual) Basophils % (Manual) Nucleated RBC % Seg Neutrophils # Seg Neutrophils # Man Lymphocytes # (Manual) Monocytes # (Manual) Eosinophils # (Manual) Basophils # (Manual) Percent Retic PT INR Fibrinogen D-Dimer ABG pH 7.303 L POC ABG pCO2 POC ABG pO2 67.9 L ABG pO2 ABG HCO3 ABG O2 Saturation ABG Base Excess ABG Hemoglobin 7.6 L ABG Oxyhemoglobin 90.2 L ABG Sodium 128.6 L ABG Potassium ABG Chloride 97.0 L ABG Glucose 154 H Oxyhemoglobin Carboxyhemoglobin Sodium Potassium Chloride Carbon Dioxide BUN Creatinine Glucose POC Glucose 137 H Hemoglobin A1c Calcium Phosphorus Magnesium AST ALT Alkaline Phosphatase Lactate Dehydrogenase C-Reactive Protein Total Protein Albumin Triglycerides Arterial Blood Glucose 154 H Arterial Blood Ionized Calcium Urine WBC (Auto) 148.0 H U Epithel Cells (Auto) 102.0 H Urine Creatinine Random Vancomycin Heparin-induced Plt Ab Coronavirus (PCR) Crossmatch 04/07/21 04/07/21 04/07/21 03:50 03:50 03:50 WBC 26.7 H RBC 2.66 L Hgb 7.6 L Hct 23.2 L MCH MCHC RDW 18.5 H Plt Count Lymph % (Auto) [place] # (Auto) Eos # (Auto) Seg Neutrophils % Lymphocytes % (Manual) 10.0 L Eosinophils % (Manual) 19.0 H Basophils % (Manual) Nucleated RBC % 2.0 H Seg Neutrophils # Seg Neutrophils # Man 17.9 H Lymphocytes # (Manual) Monocytes # (Manual) 1.1 H Eosinophils # (Manual) 5.1 H Basophils # (Manual) Percent Retic PT INR Fibrinogen D-Dimer 2178 H ABG pH POC ABG pCO2 POC ABG pO2 ABG pO2 ABG HCO3 ABG O2 Saturation ABG Base Excess ABG Hemoglobin ABG Oxyhemoglobin ABG Sodium ABG Potassium ABG Chloride ABG Glucose Oxyhemoglobin Carboxyhemoglobin Sodium 130 L Potassium Chloride 91.1 L Carbon Dioxide 19 L BUN 92 H Creatinine 4.2 H Glucose 213 H POC Glucose Hemoglobin A1c Calcium 7.8 L Phosphorus Magnesium AST ALT Alkaline Phosphatase Lactate Dehydrogenase C-Reactive Protein Total Protein Albumin Triglycerides Arterial Blood Glucose Arterial Blood Ionized Calcium Urine WBC (Auto) U Epithel Cells (Auto) Urine Creatinine Random Vancomycin Heparin-induced Plt Ab Coronavirus (PCR) Crossmatch 04/07/21 04/07/21 04/07/21 04:00 05:42 11:10 WBC RBC Hgb Hct MCH MCHC RDW Plt Count Lymph % (Auto) [place] # (Auto) Eos # (Auto) Seg Neutrophils % Lymphocytes % (Manual) Eosinophils % (Manual) Basophils % (Manual) Nucleated RBC % Seg Neutrophils # Seg Neutrophils # Man Lymphocytes # (Manual) Monocytes # (Manual) Eosinophils # (Manual) Basophils # (Manual) Percent Retic PT INR Fibrinogen D-Dimer ABG pH POC ABG pCO2 POC ABG pO2 ABG pO2 ABG HCO3 ABG O2 Saturation ABG Base Excess ABG Hemoglobin ABG Oxyhemoglobin ABG Sodium ABG Potassium ABG Chloride ABG Glucose Oxyhemoglobin Carboxyhemoglobin Sodium 129 L Potassium 5.1 H Chloride 89.6 L Carbon Dioxide 18 L BUN 94 H Creatinine 4.2 H Glucose 213 H POC Glucose 177 H 136 H Hemoglobin A1c Calcium 7.9 L Phosphorus Magnesium AST ALT Alkaline Phosphatase 167 H Lactate Dehydrogenase C-Reactive Protein Total Protein Albumin 2.8 L Triglycerides Arterial Blood Glucose Arterial Blood Ionized Calcium Urine WBC (Auto) U Epithel Cells (Auto) Urine Creatinine Random Vancomycin Heparin-induced Plt Ab Coronavirus (PCR) Crossmatch 04/07/21 04/07/21 04/08/21 16:19 21:30 02:32 WBC RBC Hgb Hct MCH MCHC RDW Plt Count Lymph % (Auto) [place] # (Auto) Eos # (Auto) Seg Neutrophils % Lymphocytes % (Manual) Eosinophils % (Manual) Basophils % (Manual) Nucleated RBC % Seg Neutrophils # Seg Neutrophils # Man Lymphocytes # (Manual) Monocytes # (Manual) Eosinophils # (Manual) Basophils # (Manual) Percent Retic PT INR Fibrinogen D-Dimer ABG pH 7.209 L POC ABG pCO2 64.8 H POC ABG pO2 ABG pO2 ABG HCO3 ABG O2 Saturation ABG Base Excess ABG Hemoglobin 7.9 L ABG Oxyhemoglobin 93.8 L ABG Sodium 128.8 L ABG Potassium 4.6 H ABG Chloride 97.0 L ABG Glucose 170 H Oxyhemoglobin Carboxyhemoglobin 1.6 H Sodium Potassium Chloride Carbon Dioxide BUN Creatinine Glucose POC Glucose 155 H 141 H Hemoglobin A1c Calcium Phosphorus Magnesium AST ALT Alkaline Phosphatase Lactate Dehydrogenase C-Reactive Protein Total Protein Albumin Triglycerides Arterial Blood Glucose 170 H Arterial Blood Ionized Calcium 4.2 L Urine WBC (Auto) U Epithel Cells (Auto) Urine Creatinine Random Vancomycin Heparin-induced Plt Ab Coronavirus (PCR) Crossmatch 04/08/21 04/08/21 04/08/21 04:00 04:40 04:40 WBC 23.7 H RBC 2.51 L Hgb 6.9 L Hct 22.1 L MCH 27 L MCHC RDW 18.4 H Plt Count Lymph % (Auto) [place] # (Auto) Eos # (Auto) Seg Neutrophils % Lymphocytes % (Manual) Eosinophils % (Manual) Basophils % (Manual) Nucleated RBC % Seg Neutrophils # Seg Neutrophils # Man Lymphocytes # (Manual) Monocytes # (Manual) Eosinophils # (Manual) Basophils # (Manual) Percent Retic PT INR Fibrinogen D-Dimer 2696.79 H ABG pH POC ABG pCO2 POC ABG pO2 ABG pO2 ABG HCO3 ABG O2 Saturation ABG Base Excess ABG Hemoglobin ABG Oxyhemoglobin ABG Sodium ABG Potassium ABG Chloride ABG Glucose Oxyhemoglobin Carboxyhemoglobin Sodium 133 L Potassium 5.5 H Chloride 93.5 L Carbon Dioxide BUN 78 H Creatinine 3.5 H Glucose 171 H POC Glucose Hemoglobin A1c Calcium 8.1 L Phosphorus 9.30 H Magnesium AST ALT Alkaline Phosphatase Lactate Dehydrogenase C-Reactive Protein 26.10 H Total Protein Albumin Triglycerides 487 H Arterial Blood Glucose Arterial Blood Ionized Calcium Urine WBC (Auto) U Epithel Cells (Auto) Urine Creatinine Random Vancomycin Heparin-induced Plt Ab Coronavirus (PCR) Crossmatch 04/08/21 04/08/21 04/08/21 09:55 11:37 13:55 WBC RBC Hgb Hct MCH MCHC RDW Plt Count Lymph % (Auto) [place] # (Auto) Eos # (Auto) Seg Neutrophils % Lymphocytes % (Manual) Eosinophils % (Manual) Basophils % (Manual) Nucleated RBC % Seg Neutrophils # Seg Neutrophils # Man Lymphocytes # (Manual) Monocytes # (Manual) Eosinophils # (Manual) Basophils # (Manual) Percent Retic PT INR Fibrinogen D-Dimer ABG pH 7.114 L* POC ABG pCO2 POC ABG pO2 ABG pO2 75.9 L ABG HCO3 26.2 H ABG O2 Saturation 90.6 L ABG Base Excess -3.6 L ABG Hemoglobin 8.2 L ABG Oxyhemoglobin ABG Sodium ABG Potassium ABG Chloride ABG Glucose Oxyhemoglobin 88.0 L Carboxyhemoglobin Sodium Potassium Chloride Carbon Dioxide BUN Creatinine Glucose POC Glucose 156 H Hemoglobin A1c Calcium Phosphorus Magnesium AST ALT Alkaline Phosphatase Lactate Dehydrogenase C-Reactive Protein Total Protein Albumin Triglycerides Arterial Blood Glucose Arterial Blood Ionized Calcium Urine WBC (Auto) U Epithel Cells (Auto) Urine Creatinine Random Vancomycin Heparin-induced Plt Ab Coronavirus (PCR) Crossmatch See Detail 04/08/21 04/08/21 04/08/21 17:04 20:53 23:56 WBC RBC Hgb Hct MCH MCHC RDW Plt Count Lymph % (Auto) [place] # (Auto) Eos # (Auto) Seg Neutrophils % Lymphocytes % (Manual) Eosinophils % (Manual) Basophils % (Manual) Nucleated RBC % Seg Neutrophils # Seg Neutrophils # Man Lymphocytes # (Manual) Monocytes # (Manual) Eosinophils # (Manual) Basophils # (Manual) Percent Retic PT INR Fibrinogen D-Dimer ABG pH 7.207 L POC ABG pCO2 49.8 H POC ABG pO2 ABG pO2 ABG HCO3 ABG O2 Saturation ABG Base Excess ABG Hemoglobin 7.6 L ABG Oxyhemoglobin ABG Sodium 127.3 L ABG Potassium 5.7 H ABG Chloride 96.0 L ABG Glucose 185 H Oxyhemoglobin Carboxyhemoglobin Sodium Potassium Chloride Carbon Dioxide BUN Creatinine Glucose POC Glucose 178 H 189 H Hemoglobin A1c Calcium Phosphorus Magnesium AST ALT Alkaline Phosphatase Lactate Dehydrogenase C-Reactive Protein Total Protein Albumin Triglycerides Arterial Blood Glucose 185 H Arterial Blood Ionized Calcium 4.3 L Urine WBC (Auto) U Epithel Cells (Auto) Urine Creatinine Random Vancomycin Heparin-induced Plt Ab Coronavirus (PCR) Crossmatch 04/09/21 04/09/21 04/09/21 04:00 04:00 05:24 WBC 21.9 H RBC 2.70 L Hgb 7.8 L Hct 24.1 L MCH MCHC RDW 18.3 H Plt Count Lymph % (Auto) [place] # (Auto) Eos # (Auto) Seg Neutrophils % Lymphocytes % (Manual) Eosinophils % (Manual) Basophils % (Manual) Nucleated RBC % Seg Neutrophils # Seg Neutrophils # Man Lymphocytes # (Manual) Monocytes # (Manual) Eosinophils # (Manual) Basophils # (Manual) Percent Retic PT INR Fibrinogen D-Dimer ABG pH POC ABG pCO2 POC ABG pO2 ABG pO2 ABG HCO3 ABG O2 Saturation ABG Base Excess ABG Hemoglobin ABG Oxyhemoglobin ABG Sodium ABG Potassium ABG Chloride ABG Glucose Oxyhemoglobin Carboxyhemoglobin Sodium 131 L Potassium 6.3 H* Chloride 93.0 L Carbon Dioxide 19 L BUN 98 H Creatinine 4.6 H Glucose 208 H POC Glucose 191 H Hemoglobin A1c Calcium 8.1 L Phosphorus Magnesium AST ALT Alkaline Phosphatase Lactate Dehydrogenase C-Reactive Protein Total Protein Albumin Triglycerides Arterial Blood Glucose Arterial Blood Ionized Calcium Urine WBC (Auto) U Epithel Cells (Auto) Urine Creatinine Random Vancomycin Heparin-induced Plt Ab Coronavirus (PCR) Crossmatch 04/09/21 04/09/21 04/09/21 12:42 16:59 21:00 WBC RBC Hgb Hct MCH MCHC RDW Plt Count Lymph % (Auto) [place] # (Auto) Eos # (Auto) Seg Neutrophils % Lymphocytes % (Manual) Eosinophils % (Manual) Basophils % (Manual) Nucleated RBC % Seg Neutrophils # Seg Neutrophils # Man Lymphocytes # (Manual) Monocytes # (Manual) Eosinophils # (Manual) Basophils # (Manual) Percent Retic PT INR Fibrinogen D-Dimer ABG pH 7.192 L POC ABG pCO2 63.4 H POC ABG pO2 ABG pO2 ABG HCO3 ABG O2 Saturation ABG Base Excess ABG Hemoglobin 8.7 L ABG Oxyhemoglobin 92.9 L ABG Sodium 135.1 L ABG Potassium ABG Chloride ABG Glucose 208 H Oxyhemoglobin Carboxyhemoglobin Sodium Potassium Chloride Carbon Dioxide BUN Creatinine Glucose POC Glucose 198 H 218 H Hemoglobin A1c Calcium Phosphorus Magnesium AST ALT Alkaline Phosphatase Lactate Dehydrogenase C-Reactive Protein Total Protein Albumin Triglycerides Arterial Blood Glucose 208 H Arterial Blood Ionized Calcium Urine WBC (Auto) U Epithel Cells (Auto) Urine Creatinine Random Vancomycin Heparin-induced Plt Ab Coronavirus (PCR) Crossmatch 04/09/21 04/10/21 04/10/21 23:31 04:45 04:45 WBC 18.0 H RBC 2.65 L Hgb 7.4 L Hct 23.3 L MCH MCHC RDW 18.5 H Plt Count Lymph % (Auto) [place] # (Auto) Eos # (Auto) Seg Neutrophils % Lymphocytes % (Manual) Eosinophils % (Manual) Basophils % (Manual) Nucleated RBC % Seg Neutrophils # Seg Neutrophils # Man Lymphocytes # (Manual) Monocytes # (Manual) Eosinophils # (Manual) Basophils # (Manual) Percent Retic PT INR Fibrinogen D-Dimer ABG pH POC ABG pCO2 POC ABG pO2 ABG pO2 ABG HCO3 ABG O2 Saturation ABG Base Excess ABG Hemoglobin ABG Oxyhemoglobin ABG Sodium ABG Potassium ABG Chloride ABG Glucose Oxyhemoglobin Carboxyhemoglobin Sodium Potassium 5.5 H Chloride Carbon Dioxide 21 L BUN 83 H Creatinine 3.4 H Glucose 211 H POC Glucose 162 H Hemoglobin A1c Calcium Phosphorus Magnesium AST ALT Alkaline Phosphatase Lactate Dehydrogenase C-Reactive Protein Total Protein Albumin Triglycerides Arterial Blood Glucose Arterial Blood Ionized Calcium Urine WBC (Auto) U Epithel Cells (Auto) Urine Creatinine Random Vancomycin Heparin-induced Plt Ab Coronavirus (PCR) Crossmatch 04/10/21 04/10/21 04/10/21 05:01 11:58 17:42 WBC RBC Hgb Hct MCH MCHC RDW Plt Count Lymph % (Auto) [place] # (Auto) Eos # (Auto) Seg Neutrophils % Lymphocytes % (Manual) Eosinophils % (Manual) Basophils % (Manual) Nucleated RBC % Seg Neutrophils # Seg Neutrophils # Man Lymphocytes # (Manual) Monocytes # (Manual) Eosinophils # (Manual) Basophils # (Manual) Percent Retic PT INR Fibrinogen D-Dimer ABG pH POC ABG pCO2 POC ABG pO2 ABG pO2 ABG HCO3 ABG O2 Saturation ABG Base Excess ABG Hemoglobin ABG Oxyhemoglobin ABG Sodium ABG Potassium ABG Chloride ABG Glucose Oxyhemoglobin Carboxyhemoglobin Sodium Potassium Chloride Carbon Dioxide BUN Creatinine Glucose POC Glucose 183 H 136 H 166 H Hemoglobin A1c Calcium Phosphorus Magnesium AST ALT Alkaline Phosphatase Lactate Dehydrogenase C-Reactive Protein Total Protein Albumin Triglycerides Arterial Blood Glucose Arterial Blood Ionized Calcium Urine WBC (Auto) U Epithel Cells (Auto) Urine Creatinine Random Vancomycin Heparin-induced Plt Ab Coronavirus (PCR) Crossmatch 04/11/21 04/11/21 04/11/21 00:02 04:15 04:15 WBC 16.3 H RBC 2.53 L Hgb 7.0 L Hct 22.6 L MCH MCHC RDW 18.4 H Plt Count Lymph % (Auto) [place] # (Auto) Eos # (Auto) Seg Neutrophils % Lymphocytes % (Manual) Eosinophils % (Manual) Basophils % (Manual) Nucleated RBC % Seg Neutrophils # Seg Neutrophils # Man Lymphocytes # (Manual) Monocytes # (Manual) Eosinophils # (Manual) Basophils # (Manual) Percent Retic PT INR Fibrinogen D-Dimer ABG pH POC ABG pCO2 POC ABG pO2 ABG pO2 ABG HCO3 ABG O2 Saturation ABG Base Excess ABG Hemoglobin ABG Oxyhemoglobin ABG Sodium ABG Potassium ABG Chloride ABG Glucose Oxyhemoglobin Carboxyhemoglobin Sodium Potassium Chloride Carbon Dioxide BUN 71 H Creatinine 3.1 H Glucose 183 H POC Glucose 155 H Hemoglobin A1c Calcium Phosphorus Magnesium AST ALT Alkaline Phosphatase Lactate Dehydrogenase C-Reactive Protein Total Protein Albumin Triglycerides 406 H Arterial Blood Glucose Arterial Blood Ionized Calcium Urine WBC (Auto) U Epithel Cells (Auto) Urine Creatinine Random Vancomycin Heparin-induced Plt Ab Coronavirus (PCR) Crossmatch 04/11/21 04/11/21 04/11/21 05:46 11:34 11:50 WBC RBC Hgb 6.7 L Hct 20.8 L MCH MCHC RDW Plt Count Lymph % (Auto) [place] # (Auto) Eos # (Auto) Seg Neutrophils % Lymphocytes % (Manual) Eosinophils % (Manual) Basophils % (Manual) Nucleated RBC % Seg Neutrophils # Seg Neutrophils # Man Lymphocytes # (Manual) Monocytes # (Manual) Eosinophils # (Manual) Basophils # (Manual) Percent Retic PT INR Fibrinogen D-Dimer ABG pH POC ABG pCO2 POC ABG pO2 ABG pO2 ABG HCO3 ABG O2 Saturation ABG Base Excess ABG Hemoglobin ABG Oxyhemoglobin ABG Sodium ABG Potassium ABG Chloride ABG Glucose Oxyhemoglobin Carboxyhemoglobin Sodium Potassium Chloride Carbon Dioxide BUN Creatinine Glucose POC Glucose 157 H 132 H Hemoglobin A1c Calcium Phosphorus Magnesium AST ALT Alkaline Phosphatase Lactate Dehydrogenase C-Reactive Protein Total Protein Albumin Triglycerides Arterial Blood Glucose Arterial Blood Ionized Calcium Urine WBC (Auto) U Epithel Cells (Auto) Urine Creatinine Random Vancomycin Heparin-induced Plt Ab Coronavirus (PCR) Crossmatch 04/11/21 04/11/21 04/11/21 13:39 17:49 17:50 WBC RBC Hgb 6.5 L Hct 21.4 L MCH MCHC RDW Plt Count Lymph % (Auto) [place] # (Auto) Eos # (Auto) Seg Neutrophils % Lymphocytes % (Manual) Eosinophils % (Manual) Basophils % (Manual) Nucleated RBC % Seg Neutrophils # Seg Neutrophils # Man Lymphocytes # (Manual) Monocytes # (Manual) Eosinophils # (Manual) Basophils # (Manual) Percent Retic PT INR Fibrinogen D-Dimer ABG pH POC ABG pCO2 POC ABG pO2 ABG pO2 ABG HCO3 ABG O2 Saturation ABG Base Excess ABG Hemoglobin ABG Oxyhemoglobin ABG Sodium ABG Potassium ABG Chloride ABG Glucose Oxyhemoglobin Carboxyhemoglobin Sodium Potassium Chloride Carbon Dioxide BUN Creatinine Glucose POC Glucose 136 H Hemoglobin A1c Calcium Phosphorus Magnesium AST ALT Alkaline Phosphatase Lactate Dehydrogenase C-Reactive Protein Total Protein Albumin Triglycerides Arterial Blood Glucose Arterial Blood Ionized Calcium Urine WBC (Auto) U Epithel Cells (Auto) Urine Creatinine Random Vancomycin Heparin-induced Plt Ab Coronavirus (PCR) Crossmatch See Detail 04/12/21 04/12/21 04/12/21 00:25 00:29 02:52 WBC RBC Hgb 7.4 L Hct 23.5 L MCH MCHC RDW Plt Count Lymph % (Auto) [place] # (Auto) Eos # (Auto) Seg Neutrophils % Lymphocytes % (Manual) Eosinophils % (Manual) Basophils % (Manual) Nucleated RBC % Seg Neutrophils # Seg Neutrophils # Man Lymphocytes # (Manual) Monocytes # (Manual) Eosinophils # (Manual) Basophils # (Manual) Percent Retic PT INR Fibrinogen D-Dimer ABG pH 7.253 L POC ABG pCO2 POC ABG pO2 ABG pO2 79.6 L ABG HCO3 ABG O2 Saturation 94.1 L ABG Base Excess -3.6 L ABG Hemoglobin 8.1 L ABG Oxyhemoglobin ABG Sodium ABG Potassium ABG Chloride ABG Glucose Oxyhemoglobin 93.6 L Carboxyhemoglobin Sodium Potassium Chloride Carbon Dioxide BUN Creatinine Glucose POC Glucose 125 H Hemoglobin A1c Calcium Phosphorus Magnesium AST ALT Alkaline Phosphatase Lactate Dehydrogenase C-Reactive Protein Total Protein Albumin Triglycerides Arterial Blood Glucose Arterial Blood Ionized Calcium Urine WBC (Auto) U Epithel Cells (Auto) Urine Creatinine Random Vancomycin Heparin-induced Plt Ab Coronavirus (PCR) Crossmatch 04/12/21 04/12/2104/12/21 04:30 04:30 05:41 WBC 17.5 H RBC 2.68 L Hgb 7.6 L Hct 24.0 L MCH MCHC RDW 18.0 H Plt Count Lymph % (Auto) [place] # (Auto) Eos # (Auto) Seg Neutrophils % Lymphocytes % (Manual) Eosinophils % (Manual) Basophils % (Manual) Nucleated RBC % Seg Neutrophils # Seg Neutrophils # Man Lymphocytes # (Manual) Monocytes # (Manual) Eosinophils # (Manual) Basophils # (Manual) Percent Retic PT INR Fibrinogen D-Dimer ABG pH POC ABG pCO2 POC ABG pO2 ABG pO2 ABG HCO3 ABG O2 Saturation ABG Base Excess ABG Hemoglobin ABG Oxyhemoglobin ABG Sodium ABG Potassium ABG Chloride ABG Glucose Oxyhemoglobin Carboxyhemoglobin Sodium Potassium Chloride Carbon Dioxide BUN 87 H Creatinine 4.5 H Glucose 136 H POC Glucose 115 H Hemoglobin A1c Calcium Phosphorus 6.50 H Magnesium AST ALT Alkaline Phosphatase Lactate Dehydrogenase C-Reactive Protein Total Protein Albumin Triglycerides Arterial Blood Glucose Arterial Blood Ionized Calcium Urine WBC (Auto) U Epithel Cells (Auto) Urine Creatinine Random Vancomycin Heparin-induced Plt Ab Coronavirus (PCR) Crossmatch 04/12/21 04/12/21 04/13/21 11:57 17:19 00:24 WBC RBC Hgb Hct MCH MCHC RDW Plt Count Lymph % (Auto) [place] # (Auto) Eos # (Auto) Seg Neutrophils % Lymphocytes % (Manual) Eosinophils % (Manual) Basophils % (Manual) Nucleated RBC % Seg Neutrophils # Seg Neutrophils # Man Lymphocytes # (Manual) Monocytes # (Manual) Eosinophils # (Manual) Basophils # (Manual) Percent Retic PT INR Fibrinogen D-Dimer ABG pH POC ABG pCO2 POC ABG pO2 ABG pO2 ABG HCO3 ABG O2 Saturation ABG Base Excess ABG Hemoglobin ABG Oxyhemoglobin ABG Sodium ABG Potassium ABG Chloride ABG Glucose Oxyhemoglobin Carboxyhemoglobin Sodium Potassium Chloride Carbon Dioxide BUN Creatinine Glucose POC Glucose 137 H 177 H 188 H Hemoglobin A1c Calcium Phosphorus Magnesium AST ALT Alkaline Phosphatase Lactate Dehydrogenase C-Reactive Protein Total Protein Albumin Triglycerides Arterial Blood Glucose Arterial Blood Ionized Calcium Urine WBC (Auto) U Epithel Cells (Auto) Urine Creatinine Random Vancomycin Heparin-induced Plt Ab Coronavirus (PCR) Crossmatch 04/13/21 04/13/21 04/13/21 03:52 04:44 04:44 WBC 13.1 H RBC 2.57 L Hgb 7.3 L Hct 23.2 L MCH MCHC RDW 17.6 H Plt Count 73 L Lymph % (Auto) [place] # (Auto) Eos # (Auto) Seg Neutrophils % Lymphocytes % (Manual) Eosinophils % (Manual) Basophils % (Manual) Nucleated RBC % Seg Neutrophils # Seg Neutrophils # Man Lymphocytes # (Manual) Monocytes # (Manual) Eosinophils # (Manual) Basophils # (Manual) Percent Retic PT 16.0 H INR 1.16 H Fibrinogen D-Dimer ABG pH 7.195 L* POC ABG pCO2 POC ABG pO2 ABG pO2 98.9 H ABG HCO3 ABG O2 Saturation ABG Base Excess -2.9 L ABG Hemoglobin 7.4 L ABG Oxyhemoglobin ABG Sodium ABG Potassium ABG Chloride ABG Glucose Oxyhemoglobin 94.3 L Carboxyhemoglobin Sodium Potassium Chloride Carbon Dioxide BUN Creatinine Glucose POC Glucose Hemoglobin A1c Calcium Phosphorus Magnesium AST ALT Alkaline Phosphatase Lactate Dehydrogenase C-Reactive Protein Total Protein Albumin Triglycerides Arterial Blood Glucose Arterial Blood Ionized Calcium Urine WBC (Auto) U Epithel Cells (Auto) Urine Creatinine Random Vancomycin Heparin-induced Plt Ab Coronavirus (PCR) Crossmatch 04/13/21 04/13/21 04/13/21 04:44 05:26 11:32 WBC RBC Hgb Hct MCH MCHC RDW Plt Count Lymph % (Auto) [place] # (Auto) Eos # (Auto) Seg Neutrophils % Lymphocytes % (Manual) Eosinophils % (Manual) Basophils % (Manual) Nucleated RBC % Seg Neutrophils # Seg Neutrophils # Man Lymphocytes # (Manual) Monocytes # (Manual) Eosinophils # (Manual) Basophils # (Manual) Percent Retic PT INR Fibrinogen D-Dimer ABG pH POC ABG pCO2 POC ABG pO2 ABG pO2 ABG HCO3 ABG O2 Saturation ABG Base Excess ABG Hemoglobin ABG Oxyhemoglobin ABG Sodium ABG Potassium ABG Chloride ABG Glucose Oxyhemoglobin Carboxyhemoglobin Sodium Potassium Chloride Carbon Dioxide BUN 75 H Creatinine 3.8 H Glucose 183 H POC Glucose 163 H 169 H Hemoglobin A1c Calcium Phosphorus 6.80 H Magnesium AST ALT Alkaline Phosphatase Lactate Dehydrogenase C-Reactive Protein Total Protein Albumin Triglycerides Arterial Blood Glucose Arterial Blood Ionized Calcium Urine WBC (Auto) U Epithel Cells (Auto) Urine Creatinine Random Vancomycin Heparin-induced Plt Ab Coronavirus (PCR) Crossmatch 04/13/21 04/13/2104/13/21 17:28 21:00 23:28 WBC RBC Hgb Hct MCH MCHC RDW Plt Count Lymph % (Auto) [place] # (Auto) Eos # (Auto) Seg Neutrophils % Lymphocytes % (Manual) Eosinophils % (Manual) Basophils % (Manual) Nucleated RBC % Seg Neutrophils # Seg Neutrophils # Man Lymphocytes # (Manual) Monocytes # (Manual) Eosinophils # (Manual) Basophils # (Manual) Percent Retic PT INR Fibrinogen D-Dimer ABG pH POC ABG pCO2 48.6 H POC ABG pO2 ABG pO2 ABG HCO3 ABG O2 Saturation ABG Base Excess ABG Hemoglobin 8.3 L ABG Oxyhemoglobin ABG Sodium 134.6 L ABG Potassium ABG Chloride ABG Glucose 243 H Oxyhemoglobin Carboxyhemoglobin 0.4 L Sodium Potassium Chloride Carbon Dioxide BUN Creatinine Glucose POC Glucose 174 H 207 H Hemoglobin A1c Calcium Phosphorus Magnesium AST ALT Alkaline Phosphatase Lactate Dehydrogenase C-Reactive Protein Total Protein Albumin Triglycerides Arterial Blood Glucose 243 H Arterial Blood Ionized Calcium Urine WBC (Auto) U Epithel Cells (Auto) Urine Creatinine Random Vancomycin Heparin-induced Plt Ab Coronavirus (PCR) Crossmatch 04/14/21 04/14/21 04/14/21 04:43 04:43 05:28 WBC 11.8 H RBC 2.58 L Hgb 7.5 L Hct 23.4 L MCH MCHC RDW 17.1 H Plt Count 45 L Lymph % (Auto) [place] # (Auto) Eos # (Auto) Seg Neutrophils % Lymphocytes % (Manual) Eosinophils % (Manual) Basophils % (Manual) Nucleated RBC % Seg Neutrophils # Seg Neutrophils # Man Lymphocytes # (Manual) Monocytes # (Manual) Eosinophils # (Manual) Basophils # (Manual) Percent Retic PT INR Fibrinogen D-Dimer ABG pH POC ABG pCO2 POC ABG pO2 ABG pO2 ABG HCO3 ABG O2 Saturation ABG Base Excess ABG Hemoglobin ABG Oxyhemoglobin ABG Sodium ABG Potassium ABG Chloride ABG Glucose Oxyhemoglobin Carboxyhemoglobin Sodium Potassium Chloride Carbon Dioxide BUN 74 H Creatinine 3.1 H Glucose 220 H POC Glucose 200 H Hemoglobin A1c Calcium Phosphorus Magnesium AST ALT Alkaline Phosphatase Lactate Dehydrogenase C-Reactive Protein Total Protein Albumin Triglycerides Arterial Blood Glucose Arterial Blood Ionized Calcium Urine WBC (Auto) U Epithel Cells (Auto) Urine Creatinine Random Vancomycin Heparin-induced Plt Ab Coronavirus (PCR) Crossmatch 1204/14/21 04/14/21 09:45 11:10 16:20 WBC RBC Hgb Hct MCH MCHC RDW Plt Count Lymph % (Auto) [place] # (Auto) Eos # (Auto) Seg Neutrophils % Lymphocytes % (Manual) Eosinophils % (Manual) Basophils % (Manual) Nucleated RBC % Seg Neutrophils # Seg Neutrophils # Man Lymphocytes # (Manual) Monocytes # (Manual) Eosinophils # (Manual) Basophils # (Manual) Percent Retic PT INR Fibrinogen D-Dimer ABG pH POC ABG pCO2 POC ABG pO2 ABG pO2 ABG HCO3 ABG O2 Saturation ABG Base Excess ABG Hemoglobin ABG Oxyhemoglobin ABG Sodium ABG Potassium ABG Chloride ABG Glucose Oxyhemoglobin Carboxyhemoglobin Sodium Potassium Chloride Carbon Dioxide BUN Creatinine Glucose POC Glucose 160 H 168 H Hemoglobin A1c Calcium Phosphorus Magnesium AST ALT Alkaline Phosphatase Lactate Dehydrogenase C-Reactive Protein Total Protein Albumin Triglycerides Arterial Blood Glucose Arterial Blood Ionized Calcium Urine WBC (Auto) U Epithel Cells (Auto) Urine Creatinine Random Vancomycin Heparin-induced Plt Ab Positive H Coronavirus (PCR) Crossmatch 04/14/21 04/14/21 04/15/21 21:00 23:53 08:20 WBC RBC Hgb Hct MCH MCHC RDW Plt Count Lymph % (Auto) [place] # (Auto) Eos # (Auto) Seg Neutrophils % Lymphocytes % (Manual) Eosinophils % (Manual) Basophils % (Manual) Nucleated RBC % Seg Neutrophils # Seg Neutrophils # Man Lymphocytes # (Manual) Monocytes # (Manual) Eosinophils # (Manual) Basophils # (Manual) Percent Retic PT INR Fibrinogen D-Dimer ABG pH 7.207 L 7.305 L POC ABG pCO2 67.6 H 48.3 H POC ABG pO2 143.7 H ABG pO2 ABG HCO3 ABG O2 Saturation ABG Base Excess ABG Hemoglobin 7.6 L 7.5 L ABG Oxyhemoglobin ABG Sodium 133.8 L 134.1 L ABG Potassium ABG Chloride ABG Glucose 158 H 146 H Oxyhemoglobin Carboxyhemoglobin Sodium Potassium Chloride Carbon Dioxide BUN Creatinine Glucose POC Glucose 147 H Hemoglobin A1c Calcium Phosphorus Magnesium AST ALT Alkaline Phosphatase Lactate Dehydrogenase C-Reactive Protein Total Protein Albumin Triglycerides Arterial Blood Glucose 158 H 146 H Arterial Blood Ionized Calcium Urine WBC (Auto) U Epithel Cells (Auto) Urine Creatinine Random Vancomycin Heparin-induced Plt Ab Coronavirus (PCR) Crossmatch 04/15/21 04/15/2104/15/21 11:10 12:10 12:10 WBC RBC Hgb Hct MCH MCHC RDW Plt Count Lymph % (Auto) [place] # (Auto) Eos # (Auto) Seg Neutrophils % Lymphocytes % (Manual) Eosinophils % (Manual) Basophils % (Manual) Nucleated RBC % Seg Neutrophils # Seg Neutrophils # Man Lymphocytes # (Manual) Monocytes # (Manual) Eosinophils # (Manual) Basophils # (Manual) Percent Retic PT INR Fibrinogen D-Dimer ABG pH POC ABG pCO2 POC ABG pO2 ABG pO2 ABG HCO3 ABG O2 Saturation ABG Base Excess ABG Hemoglobin ABG Oxyhemoglobin ABG Sodium ABG Potassium ABG Chloride ABG Glucose Oxyhemoglobin Carboxyhemoglobin Sodium Potassium Chloride Carbon Dioxide BUN Creatinine Glucose POC Glucose 161 H 166 H Hemoglobin A1c Calcium Phosphorus Magnesium AST ALT Alkaline Phosphatase Lactate Dehydrogenase C-Reactive Protein Total Protein Albumin Triglycerides Arterial Blood Glucose Arterial Blood Ionized Calcium Urine WBC (Auto) U Epithel Cells (Auto) Urine Creatinine Random Vancomycin Heparin-induced Plt Ab Coronavirus (PCR) Crossmatch See Detail 04/15/21 04/15/21 04/15/21 16:21 18:35 23:16 WBC RBC Hgb Hct MCH MCHC RDW Plt Count Lymph % (Auto) [place] # (Auto) Eos # (Auto) Seg Neutrophils % Lymphocytes % (Manual) Eosinophils % (Manual) Basophils % (Manual) Nucleated RBC % Seg Neutrophils # Seg Neutrophils # Man Lymphocytes # (Manual) Monocytes # (Manual) Eosinophils # (Manual) Basophils # (Manual) Percent Retic PT INR Fibrinogen D-Dimer ABG pH POC ABG pCO2 POC ABG pO2 ABG pO2 ABG HCO3 ABG O2 Saturation ABG Base Excess ABG Hemoglobin ABG Oxyhemoglobin ABG Sodium ABG Potassium ABG Chloride ABG Glucose Oxyhemoglobin Carboxyhemoglobin Sodium Potassium Chloride Carbon Dioxide BUN Creatinine Glucose POC Glucose 157 H 148 H Hemoglobin A1c Calcium Phosphorus Magnesium AST ALT Alkaline Phosphatase Lactate Dehydrogenase C-Reactive Protein Total Protein Albumin Triglycerides Arterial Blood Glucose Arterial Blood Ionized Calcium Urine WBC (Auto) 156.0 H U Epithel Cells (Auto) 15.0 H Urine Creatinine Random Vancomycin Heparin-induced Plt Ab Coronavirus (PCR) Crossmatch 04/15/21 04/15/21 04/15/21 Unknown Unknown Unknown WBC 11.8 H RBC 2.41 L Hgb 7.1 L Hct 22.4 L MCH MCHC RDW 17.0 H Plt Count 38 L Lymph % (Auto) [place] # (Auto) Eos # (Auto) Seg Neutrophils % Lymphocytes % (Manual) Eosinophils % (Manual) Basophils % (Manual) Nucleated RBC % Seg Neutrophils # Seg Neutrophils # Man Lymphocytes # (Manual) Monocytes # (Manual) Eosinophils # (Manual) Basophils # (Manual) Percent Retic PT 16.3 H INR 1.18 H Fibrinogen D-Dimer ABG pH POC ABG pCO2 POC ABG pO2 ABG pO2 ABG HCO3 ABG O2 Saturation ABG Base Excess ABG Hemoglobin ABG Oxyhemoglobin ABG Sodium ABG Potassium ABG Chloride ABG Glucose Oxyhemoglobin Carboxyhemoglobin Sodium Potassium Chloride Carbon Dioxide BUN 67 H Creatinine 3.3 H Glucose 155 H POC Glucose Hemoglobin A1c Calcium 8.3 L Phosphorus 5.70 H Magnesium AST 85 H ALT 63 H Alkaline Phosphatase Lactate Dehydrogenase C-Reactive Protein Total Protein Albumin 2.4 L Triglycerides Arterial Blood Glucose Arterial Blood Ionized Calcium Urine WBC (Auto) U Epithel Cells (Auto) Urine Creatinine Random Vancomycin Heparin-induced Plt Ab Coronavirus (PCR) Crossmatch 04/16/21 04/16/21 04/16/21 04:54 04:54 05:23 WBC 15.4 H RBC 2.59 L Hgb 7.7 L Hct 24.1 L MCH MCHC RDW 16.6 H Plt Count 42 L Lymph % (Auto) [place] # (Auto) Eos # (Auto) Seg Neutrophils % Lymphocytes % (Manual) Eosinophils % (Manual) Basophils % (Manual) Nucleated RBC % Seg Neutrophils # Seg Neutrophils # Man Lymphocytes # (Manual) Monocytes # (Manual) Eosinophils # (Manual) Basophils # (Manual) Percent Retic PT INR Fibrinogen D-Dimer ABG pH POC ABG pCO2 POC ABG pO2 ABG pO2 ABG HCO3 ABG O2 Saturation ABG Base Excess ABG Hemoglobin ABG Oxyhemoglobin ABG Sodium ABG Potassium ABG Chloride ABG Glucose Oxyhemoglobin Carboxyhemoglobin Sodium Potassium Chloride Carbon Dioxide BUN 82 H Creatinine 3.4 H Glucose 142 H POC Glucose 118 H Hemoglobin A1c Calcium 8.2 L Phosphorus Magnesium AST ALT Alkaline Phosphatase Lactate Dehydrogenase C-Reactive Protein Total Protein Albumin Triglycerides Arterial Blood Glucose Arterial Blood Ionized Calcium Urine WBC (Auto) U Epithel Cells (Auto) Urine Creatinine Random Vancomycin Heparin-induced Plt Ab Coronavirus (PCR) Crossmatch 04/16/21 04/16/21 04/16/21 11:06 15:50 23:36 WBC RBC Hgb Hct MCH MCHC RDW Plt Count Lymph % (Auto) [place] # (Auto) Eos # (Auto) Seg Neutrophils % Lymphocytes % (Manual) Eosinophils % (Manual) Basophils % (Manual) Nucleated RBC % Seg Neutrophils # Seg Neutrophils # Man Lymphocytes # (Manual) Monocytes # (Manual) Eosinophils # (Manual) Basophils # (Manual) Percent Retic PT INR Fibrinogen D-Dimer ABG pH 7.300 L POC ABG pCO2 49.3 H POC ABG pO2 ABG pO2 ABG HCO3 ABG O2 Saturation ABG Base Excess ABG Hemoglobin 9.5 L ABG Oxyhemoglobin ABG Sodium 133.8 L ABG Potassium 4.7 H ABG Chloride ABG Glucose 155 H Oxyhemoglobin Carboxyhemoglobin 0.1 L Sodium Potassium Chloride Carbon Dioxide BUN Creatinine Glucose POC Glucose 133 H 141 H Hemoglobin A1c Calcium Phosphorus Magnesium AST ALT Alkaline Phosphatase Lactate Dehydrogenase C-Reactive Protein Total Protein Albumin Triglycerides Arterial Blood Glucose 155 H Arterial Blood Ionized Calcium Urine WBC (Auto) U Epithel Cells (Auto) Urine Creatinine Random Vancomycin Heparin-induced Plt Ab Coronavirus (PCR) Crossmatch 04/17/21 04/17/21 04/17/21 04:10 04:42 04:42 WBC 14.1 H RBC 2.39 L Hgb 7.1 L Hct 22.3 L MCH MCHC RDW 16.8 H Plt Count 49 L Lymph % (Auto) [place] # (Auto) Eos # (Auto) Seg Neutrophils % Lymphocytes % (Manual) 10.0 L Eosinophils % (Manual) Basophils % (Manual) Nucleated RBC % Seg Neutrophils # Seg Neutrophils # Man 9.6 H Lymphocytes # (Manual) Monocytes # (Manual) Eosinophils # (Manual) Basophils # (Manual) Percent Retic PT INR Fibrinogen D-Dimer ABG pH 7.294 L POC ABG pCO2 51.9 H POC ABG pO2 ABG pO2 ABG HCO3 ABG O2 Saturation ABG Base Excess ABG Hemoglobin 7.4 L ABG Oxyhemoglobin ABG Sodium 132.3 L ABG Potassium 5.4 H ABG Chloride ABG Glucose 187 H Oxyhemoglobin Carboxyhemoglobin Sodium Potassium 5.7 H D Chloride Carbon Dioxide BUN 101 H Creatinine 3.8 H Glucose 179 H POC Glucose Hemoglobin A1c Calcium 8.1 L Phosphorus 7.90 H Magnesium AST ALT Alkaline Phosphatase Lactate Dehydrogenase C-Reactive Protein Total Protein Albumin Triglycerides Arterial Blood Glucose 187 H Arterial Blood Ionized Calcium Urine WBC (Auto) U Epithel Cells (Auto) Urine Creatinine Random Vancomycin Heparin-induced Plt Ab Coronavirus (PCR) Crossmatch 04/17/21 04/17/21 04/17/21 10:58 10:58 10:58 WBC 12.3 H RBC 2.25 L Hgb 6.7 L Hct 20.9 L MCH MCHC RDW 16.7 H Plt Count 53 L Lymph % (Auto) [place] # (Auto) Eos # (Auto) Seg Neutrophils % Lymphocytes % (Manual) Eosinophils % (Manual) Basophils % (Manual) Nucleated RBC % Seg Neutrophils # Seg Neutrophils # Man Lymphocytes # (Manual) Monocytes # (Manual) Eosinophils # (Manual) Basophils # (Manual) Percent Retic PT 17.1 H INR 1.26 H Fibrinogen D-Dimer ABG pH POC ABG pCO2 POC ABG pO2 ABG pO2 ABG HCO3 ABG O2 Saturation ABG Base Excess ABG Hemoglobin ABG Oxyhemoglobin ABG Sodium ABG Potassium ABG Chloride ABG Glucose Oxyhemoglobin Carboxyhemoglobin Sodium Potassium 5.9 H Chloride Carbon Dioxide 20 L BUN 112 H Creatinine 3.6 H Glucose 174 H POC Glucose Hemoglobin A1c Calcium 7.8 L Phosphorus Magnesium AST ALT Alkaline Phosphatase Lactate Dehydrogenase C-Reactive Protein Total Protein 5.7 L Albumin 2.1 L Triglycerides Arterial Blood Glucose Arterial Blood Ionized Calcium Urine WBC (Auto) U Epithel Cells (Auto) Urine Creatinine Random Vancomycin Heparin-induced Plt Ab Coronavirus (PCR) Crossmatch 04/17/21 04/17/21 04/17/21 12:25 17:57 23:00 WBC RBC Hgb Hct MCH MCHC RDW Plt Count Lymph % (Auto) [place] # (Auto) Eos # (Auto) Seg Neutrophils % Lymphocytes % (Manual) Eosinophils % (Manual) Basophils % (Manual) Nucleated RBC % Seg Neutrophils # Seg Neutrophils # Man Lymphocytes # (Manual) Monocytes # (Manual) Eosinophils # (Manual) Basophils # (Manual) Percent Retic PT INR Fibrinogen D-Dimer ABG pH POC ABG pCO2 POC ABG pO2 ABG pO2 ABG HCO3 ABG O2 Saturation ABG Base Excess ABG Hemoglobin ABG Oxyhemoglobin ABG Sodium ABG Potassium ABG Chloride ABG Glucose Oxyhemoglobin Carboxyhemoglobin Sodium Potassium Chloride Carbon Dioxide BUN Creatinine Glucose POC Glucose 150 H 153 H 138 H Hemoglobin A1c Calcium Phosphorus Magnesium AST ALT Alkaline Phosphatase Lactate Dehydrogenase C-Reactive Protein Total Protein Albumin Triglycerides Arterial Blood Glucose Arterial Blood Ionized Calcium Urine WBC (Auto) U Epithel Cells (Auto) Urine Creatinine Random Vancomycin Heparin-induced Plt Ab Coronavirus (PCR) Crossmatch 04/18/21 04/18/21 04/18/21 00:08 04:55 04:55 WBC 12.4 H RBC 2.55 L Hgb 7.9 L Hct 23.6 L MCH MCHC RDW 16.1 H Plt Count 99 L Lymph % (Auto) [place] # (Auto) Eos # (Auto) Seg Neutrophils % Lymphocytes % (Manual) Eosinophils % (Manual) Basophils % (Manual) Nucleated RBC % Seg Neutrophils # Seg Neutrophils # Man Lymphocytes # (Manual) Monocytes # (Manual) Eosinophils # (Manual) Basophils # (Manual) Percent Retic PT INR Fibrinogen D-Dimer ABG pH POC ABG pCO2 POC ABG pO2 81.2 L ABG pO2 ABG HCO3 ABG O2 Saturation ABG Base Excess ABG Hemoglobin 8.6 L ABG Oxyhemoglobin ABG Sodium 133.0 L ABG Potassium ABG Chloride ABG Glucose 155 H Oxyhemoglobin Carboxyhemoglobin Sodium 136 L Potassium Chloride Carbon Dioxide BUN 86 H Creatinine 3.1 H Glucose 180 H POC Glucose Hemoglobin A1c Calcium 8.2 L Phosphorus 6.50 H Magnesium AST ALT Alkaline Phosphatase Lactate Dehydrogenase C-Reactive Protein Total Protein Albumin Triglycerides Arterial Blood Glucose 155 H Arterial Blood Ionized Calcium 4.4 L Urine WBC (Auto) U Epithel Cells (Auto) Urine Creatinine Random Vancomycin Heparin-induced Plt Ab Coronavirus (PCR) Crossmatch 04/18/21 04/18/21 04/18/21 05:25 11:49 17:15 WBC RBC Hgb Hct MCH MCHC RDW Plt Count Lymph % (Auto) [place] # (Auto) Eos # (Auto) Seg Neutrophils % Lymphocytes % (Manual) Eosinophils % (Manual) Basophils % (Manual) Nucleated RBC % Seg Neutrophils # Seg Neutrophils # Man Lymphocytes # (Manual) Monocytes # (Manual) Eosinophils # (Manual) Basophils # (Manual) Percent Retic PT INR Fibrinogen D-Dimer ABG pH POC ABG pCO2 POC ABG pO2 ABG pO2 ABG HCO3 ABG O2 Saturation ABG Base Excess ABG Hemoglobin ABG Oxyhemoglobin ABG Sodium ABG Potassium ABG Chloride ABG Glucose Oxyhemoglobin Carboxyhemoglobin Sodium Potassium Chloride Carbon Dioxide BUN Creatinine Glucose POC Glucose 163 H 122 H 153 H Hemoglobin A1c Calcium Phosphorus Magnesium AST ALT Alkaline Phosphatase Lactate Dehydrogenase C-Reactive Protein Total Protein Albumin Triglycerides Arterial Blood Glucose Arterial Blood Ionized Calcium Urine WBC (Auto) U Epithel Cells (Auto) Urine Creatinine Random Vancomycin Heparin-induced Plt Ab Coronavirus (PCR) Crossmatch 04/19/21 04/19/21 04/19/21 00:14 03:09 04:00 WBC RBC Hgb Hct MCH MCHC RDW Plt Count Lymph % (Auto) [place] # (Auto) Eos # (Auto) Seg Neutrophils % Lymphocytes % (Manual) Eosinophils % (Manual) Basophils % (Manual) Nucleated RBC % Seg Neutrophils # Seg Neutrophils # Man Lymphocytes # (Manual) Monocytes # (Manual) Eosinophils # (Manual) Basophils # (Manual) Percent Retic PT INR Fibrinogen D-Dimer ABG pH 7.301 L POC ABG pCO2 48.7 H POC ABG pO2 82.1 L ABG pO2 ABG HCO3 ABG O2 Saturation ABG Base Excess ABG Hemoglobin 8.9 L ABG Oxyhemoglobin 93.8 L ABG Sodium 133.9 L ABG Potassium 5.2 H ABG Chloride ABG Glucose 126 H Oxyhemoglobin Carboxyhemoglobin Sodium Potassium 5.3 H Chloride Carbon Dioxide BUN 102 H Creatinine 3.2 H Glucose 116 H POC Glucose 118 H Hemoglobin A1c Calcium 8.2 L Phosphorus Magnesium AST ALT Alkaline Phosphatase Lactate Dehydrogenase C-Reactive Protein Total Protein Albumin Triglycerides Arterial Blood Glucose 126 H Arterial Blood Ionized Calcium Urine WBC (Auto) U Epithel Cells (Auto) Urine Creatinine Random Vancomycin Heparin-induced Plt Ab Coronavirus (PCR) Crossmatch 04/19/21 04/19/21 04/19/21 04:58 05:00 11:18 WBC 12.5 H RBC 2.79 L Hgb 8.6 L Hct 26.2 L MCH MCHC RDW 17.3 H Plt Count 121 L Lymph % (Auto) [place] # (Auto) Eos # (Auto) Seg Neutrophils % Lymphocytes % (Manual) Eosinophils % (Manual) Basophils % (Manual) Nucleated RBC % Seg Neutrophils # Seg Neutrophils # Man Lymphocytes # (Manual) Monocytes # (Manual) Eosinophils # (Manual) Basophils # (Manual) Percent Retic PT INR Fibrinogen D-Dimer ABG pH POC ABG pCO2 POC ABG pO2 ABG pO2 ABG HCO3 ABG O2 Saturation ABG Base Excess ABG Hemoglobin ABG Oxyhemoglobin ABG Sodium ABG Potassium ABG Chloride ABG Glucose Oxyhemoglobin Carboxyhemoglobin Sodium Potassium Chloride Carbon Dioxide BUN Creatinine Glucose POC Glucose 118 H 118 H Hemoglobin A1c Calcium Phosphorus Magnesium AST ALT Alkaline Phosphatase Lactate Dehydrogenase C-Reactive Protein Total Protein Albumin Triglycerides Arterial Blood Glucose Arterial Blood Ionized Calcium Urine WBC (Auto) U Epithel Cells (Auto) Urine Creatinine Random Vancomycin Heparin-induced Plt Ab Coronavirus (PCR) Crossmatch 04/19/21 04/19/21 04/20/21 16:34 23:42 04:30 WBC 12.7 H RBC 2.64 L Hgb 8.1 L Hct 25.0 L MCH MCHC RDW 16.9 H Plt Count 123 L Lymph % (Auto) [place] # (Auto) Eos # (Auto) Seg Neutrophils % Lymphocytes % (Manual) Eosinophils % (Manual) Basophils % (Manual) Nucleated RBC % Seg Neutrophils # Seg Neutrophils # Man Lymphocytes # (Manual) Monocytes # (Manual) Eosinophils # (Manual) Basophils # (Manual) Percent Retic PT INR Fibrinogen D-Dimer ABG pH POC ABG pCO2 POC ABG pO2 ABG pO2 ABG HCO3 ABG O2 Saturation ABG Base Excess ABG Hemoglobin ABG Oxyhemoglobin ABG Sodium ABG Potassium ABG Chloride ABG Glucose Oxyhemoglobin Carboxyhemoglobin Sodium Potassium Chloride Carbon Dioxide BUN Creatinine Glucose POC Glucose 133 H 134 H Hemoglobin A1c Calcium Phosphorus Magnesium AST ALT Alkaline Phosphatase Lactate Dehydrogenase C-Reactive Protein Total Protein Albumin Triglycerides Arterial Blood Glucose Arterial Blood Ionized Calcium Urine WBC (Auto) U Epithel Cells (Auto) Urine Creatinine Random Vancomycin Heparin-induced Plt Ab Coronavirus (PCR) Crossmatch 04/20/21 04/20/21 04/20/21 04:30 04:30 05:12 WBC RBC Hgb Hct MCH MCHC RDW Plt Count Lymph % (Auto) [place] # (Auto) Eos # (Auto) Seg Neutrophils % Lymphocytes % (Manual) Eosinophils % (Manual) Basophils % (Manual) Nucleated RBC % Seg Neutrophils # Seg Neutrophils # Man Lymphocytes # (Manual) Monocytes # (Manual) Eosinophils # (Manual) Basophils # (Manual) Percent Retic PT 16.1 H INR 1.17 H Fibrinogen D-Dimer ABG pH POC ABG pCO2 POC ABG pO2 ABG pO2 ABG HCO3 ABG O2 Saturation ABG Base Excess ABG Hemoglobin ABG Oxyhemoglobin ABG Sodium ABG Potassium ABG Chloride ABG Glucose Oxyhemoglobin Carboxyhemoglobin Sodium 136 L Potassium 5.5 H Chloride Carbon Dioxide BUN 111 H Creatinine 3.6 H Glucose 130 H POC Glucose 113 H Hemoglobin A1c Calcium Phosphorus 8.30 H Magnesium AST ALT Alkaline Phosphatase Lactate Dehydrogenase C-Reactive Protein Total Protein Albumin Triglycerides Arterial Blood Glucose Arterial Blood Ionized Calcium Urine WBC (Auto) U Epithel Cells (Auto) Urine Creatinine Random Vancomycin Heparin-induced Plt Ab Coronavirus (PCR) Crossmatch 04/20/21 04/20/21 04/21/21 17:22 23:14 04:00 WBC 13.2 H RBC 2.65 L Hgb 8.2 L Hct 25.0 L MCH MCHC RDW 16.8 H Plt Count 115 L Lymph % (Auto) [place] # (Auto) Eos # (Auto) Seg Neutrophils % Lymphocytes % (Manual) Eosinophils % (Manual) Basophils % (Manual) Nucleated RBC % Seg Neutrophils # Seg Neutrophils # Man Lymphocytes # (Manual) Monocytes # (Manual) Eosinophils # (Manual) Basophils # (Manual) Percent Retic PT INR Fibrinogen D-Dimer ABG pH POC ABG pCO2 POC ABG pO2 ABG pO2 ABG HCO3 ABG O2 Saturation ABG Base Excess ABG Hemoglobin ABG Oxyhemoglobin ABG Sodium ABG Potassium ABG Chloride ABG Glucose Oxyhemoglobin Carboxyhemoglobin Sodium Potassium Chloride Carbon Dioxide BUN Creatinine Glucose POC Glucose 146 H 136 H Hemoglobin A1c Calcium Phosphorus Magnesium AST ALT Alkaline Phosphatase Lactate Dehydrogenase C-Reactive Protein Total Protein Albumin Triglycerides Arterial Blood Glucose Arterial Blood Ionized Calcium Urine WBC (Auto) U Epithel Cells (Auto) Urine Creatinine Random Vancomycin Heparin-induced Plt Ab Coronavirus (PCR) Crossmatch 04/21/21 04/21/21 04/21/21 04:00 05:05 05:28 WBC RBC Hgb Hct MCH MCHC RDW Plt Count Lymph % (Auto) [place] # (Auto) Eos # (Auto) Seg Neutrophils % Lymphocytes % (Manual) Eosinophils % (Manual) Basophils % (Manual) Nucleated RBC % Seg Neutrophils # Seg Neutrophils # Man Lymphocytes # (Manual) Monocytes # (Manual) Eosinophils # (Manual) Basophils # (Manual) Percent Retic PT INR Fibrinogen D-Dimer ABG pH 7.467 H POC ABG pCO2 POC ABG pO2 ABG pO2 180.7 H ABG HCO3 ABG O2 Saturation 99.2 H ABG Base Excess ABG Hemoglobin 8.6 L ABG Oxyhemoglobin ABG Sodium ABG Potassium ABG Chloride ABG Glucose Oxyhemoglobin Carboxyhemoglobin Sodium Potassium Chloride Carbon Dioxide BUN 83 H Creatinine 2.5 H Glucose 133 H POC Glucose 109 H Hemoglobin A1c Calcium Phosphorus 6.60 H D Magnesium AST ALT Alkaline Phosphatase Lactate Dehydrogenase C-Reactive Protein Total Protein Albumin Triglycerides Arterial Blood Glucose Arterial Blood Ionized Calcium Urine WBC (Auto) U Epithel Cells (Auto) Urine Creatinine Random Vancomycin Heparin-induced Plt Ab Coronavirus (PCR) Crossmatch Chest x-ray: pending (post procedure) Allied health notes reviewed: nursing
--- NOTE | 2021-04-21 22:15 | Death Summary ---
Summary - Providers Date of service: 04/21/21 Consults: 03/13/21 19:35 Consult to Physician [CONS] Routine Comment: Consulting Provider: KEIRA PEOPLES Physician Instructions: Reason For Exam: Acute respiratory failure with hypoxia 03/14/21 10:21 Consult to PICC Line RN [CONS] Routine Reason For Exam: Need PIV, patient is a hard stick Type Line:: Midline 03/14/21 17:50 Consult to Dietitian/Nutrition [CONS] Routine Physician Instructions: Reason For Exam: Reason for Consult: Write/Manage Tube Feeding 03/14/21 17:58 Consult to Physician [CONS] Stat Comment: spoke to marc/Maribel Consulting Provider: JAIR ATKINS Physician Instructions: Reason For Exam: SAI; Hyperkalemia 03/15/21 10:09 Consult to Physician [CONS] Routine Comment: spoke to Diann/Maribel Consulting Provider: ALEX SHAFFER Physician Instructions: Reason For Exam: covid/sepsis 03/23/21 09:31 Physical Therapy Evaluation and Treat [CONS] Urgent Comment: Reason For Exam: evaluate and treat 03/30/21 18:55 Consult to Physician [CONS] Routine Comment: Consulting Provider: AYAZ HUTCHINS Physician Instructions: Reason For Exam: petechiae,purpura,thrombocytopenia 04/02/21 05:06 Consult to Wound/ET Nurse [CONS] Stat Reason For Exam: wound eval upper lip open area 04/13/21 18:25 Midline [Consult to PICC Line RN] [CONS] Routine Reason For Exam: needs access Type Line:: Midline 04/19/21 13:39 Consult to Physician [CONS] Routine Comment: Consulting Provider: VIJAY LIND Physician Instructions: Reason For Exam: Tracheostomy and PEG placemen Attending: WESLEY LANCASTER MD - summary Date of admission: 03/13/21 19:30 Date of : 04/21/21 Reason for admission: Respiratory Failure 2/2 COVID PNA Disposition: This is a 31-year-old female with history of asthma, morbid obesity, and Crohn's disease who presented with severe wheezing and shortness of breath for about 4 days that was not relieved by her home nebs and rescue inhalers. Patient was initially admitted to [facility] on bipap but was subsequently intubated and transferred to ICU due to severe respiratory distress secondary to COVID p neumonia. Patient hospital course was complicated by acute hypoxic respiratory failure requiring ventilatory support, severe septic shock requiring high dose pressors, and acute Kidney injury requiring HD. She developed severe septic shock with persistent fevers and requiring multiple pressors due bilateral pneumonia secondary to COVID, then she developed MSSA in the lungs. She completed several course of steroids and multiple courses of IV antibiotics. She received X1 dose of Remdesevir then went into acute Kidney injury requiring daily HD, then she was no longer a candidate for Remdesevir. She did received X1 dose of Actemra on . Patient also developed conjunctival hemorrhage, anemia required multiple blood transfusion. Thrombocytopenia, HIT positive, s/p 2 units of platelets. Then she also developed generalized body rash with eosinophilia concerned for possible HUS versus drugs reaction s/p X2 plasma exchange and pulse high dose steroids. Patient was eventually optimized to a low vent setting, and was stable enough to undergo tracheostomy and PEG tube placement by general surgery in the OR. Patient went to OR for planned trach/PEG under general Anesthesia. After trac heostomy placement, EtCO2 was noted to be near zero and inspiratory pressures were increased which suggested tracheostomy tube may be outside the tracheal lumen. SpO2 maintained >88% however patient developed hypotension and bradycardia which devolved into PEA arrest. Tracheostomy tube was removed, patient was orally intubated easily via DL w/ MAC 3, chest compressions were initiated and CODE BLUE was called at 1627. Inhaled anesthetic and IV sedatives were d/c'd at this time. Endotracheal intubation was confirmed via direct visualization and consistent EtCO2 on continuous capnopgraphy. Despite multiple rounds of epinephrine, bicarbonate, and chest compressions, patient remained in PEA arrest. At 1646, rhythm check showed Vfib and 1 - 200J shock was delivered via defibrillator. On next rhythm check, patient was again noted to be in PEA arrest. All reversible causes for arrest were considered however resuscitation was unsuccessful. Patient was pronounced at 1650. Patient's family was notified by surgeon.
[2021-04-22] MEDS ORDERED: HYDROCORTISONE SOD SUCC 100 MG/2 ML VIAL IV SCH (10:00)
== END 2021-04-21 14:52 | DRG 4 ==
LOC: ED 12:38 → IMCU 18:53 → OBSVTOIN 19:30 → CC1 03-14 09:55
PROVIDERS: ADMIT Internal Medicine; ATTEND Internal Medicine
PROC: 4A033R1 Measurement of Arterial Saturation, Peripheral, Percutaneous Approach (ICD-10-PCS; 2021-03-13)
PROC: 8E0ZXY6 Isolation (ICD-10-PCS; 2021-03-13)
PROC: 5A09357 Assistance with Respiratory Ventilation, Less than 24 Consecutive Hours, Continuous Positive Airway Pressure (ICD-10-PCS; 2021-03-13)
PROC: 5A1955Z Respiratory Ventilation, Greater than 96 Consecutive Hours (ICD-10-PCS; principal; 2021-03-14)
PROC: 0BH17EZ Insertion of Endotracheal Airway into Trachea, Via Natural or Artificial Opening (ICD-10-PCS; 2021-03-14)
PROC: XW033E5 Introduction of Remdesivir Anti-infective into Peripheral Vein, Percutaneous Approach, New Technology Group 5 (ICD-10-PCS; 2021-03-14)
PROC: 05HM33Z Insertion of Infusion Device into Right Internal Jugular Vein, Percutaneous Approach (ICD-10-PCS; 2021-03-15)
PROC: B543ZZA Ultrasonography of Right Jugular Veins, Guidance (ICD-10-PCS; 2021-03-15)
PROC: 5A1D70Z Performance of Urinary Filtration, Intermittent, Less than 6 Hours Per Day (ICD-10-PCS; 2021-03-15)
PROC: XW033H5 Introduction of Tocilizumab into Peripheral Vein, Percutaneous Approach, New Technology Group 5 (ICD-10-PCS; 2021-03-15)
PROC: 5A1D70Z Performance of Urinary Filtration, Intermittent, Less than 6 Hours Per Day (ICD-10-PCS; 2021-03-17)
PROC: 5A1D70Z Performance of Urinary Filtration, Intermittent, Less than 6 Hours Per Day (ICD-10-PCS; 2021-03-18)
PROC: 5A1D70Z Performance of Urinary Filtration, Intermittent, Less than 6 Hours Per Day (ICD-10-PCS; 2021-03-19)
PROC: 5A1D70Z Performance of Urinary Filtration, Intermittent, Less than 6 Hours Per Day (ICD-10-PCS; 2021-03-20)
PROC: 5A1D70Z Performance of Urinary Filtration, Intermittent, Less than 6 Hours Per Day (ICD-10-PCS; 2021-03-22)
PROC: 5A1D70Z Performance of Urinary Filtration, Intermittent, Less than 6 Hours Per Day (ICD-10-PCS; 2021-03-24)
PROC: 5A1D70Z Performance of Urinary Filtration, Intermittent, Less than 6 Hours Per Day (ICD-10-PCS; 2021-03-25)
PROC: 30233N1 Transfusion of Nonautologous Red Blood Cells into Peripheral Vein, Percutaneous Approach (ICD-10-PCS; 2021-03-25)
PROC: 5A1D70Z Performance of Urinary Filtration, Intermittent, Less than 6 Hours Per Day (ICD-10-PCS; 2021-03-26)
PROC: 5A1D70Z Performance of Urinary Filtration, Intermittent, Less than 6 Hours Per Day (ICD-10-PCS; 2021-03-27)
PROC: 03H Upper Arteries, Insertion (ICD-10-PCS; 2021-03-30)
PROC: B34JZZZ Ultrasonography of Left Upper Extremity Arteries (ICD-10-PCS; 2021-03-30)
PROC: 5A1D70Z Performance of Urinary Filtration, Intermittent, Less than 6 Hours Per Day (ICD-10-PCS; 2021-03-30)
PROC: 5A1D70Z Performance of Urinary Filtration, Intermittent, Less than 6 Hours Per Day (ICD-10-PCS; 2021-04-01)
PROC: 5A1D70Z Performance of Urinary Filtration, Intermittent, Less than 6 Hours Per Day (ICD-10-PCS; 2021-04-03)
PROC: 5A1D70Z Performance of Urinary Filtration, Intermittent, Less than 6 Hours Per Day (ICD-10-PCS; 2021-04-05)
PROC: 5A1D70Z Performance of Urinary Filtration, Intermittent, Less than 6 Hours Per Day (ICD-10-PCS; 2021-04-07)
PROC: 5A1D70Z Performance of Urinary Filtration, Intermittent, Less than 6 Hours Per Day (ICD-10-PCS; 2021-04-09)
PROC: 5A1D70Z Performance of Urinary Filtration, Intermittent, Less than 6 Hours Per Day (ICD-10-PCS; 2021-04-10)
PROC: 0BH17EZ Insertion of Endotracheal Airway into Trachea, Via Natural or Artificial Opening (ICD-10-PCS; 2021-04-11)
PROC: 0BJ08ZZ Inspection of Tracheobronchial Tree, Via Natural or Artificial Opening Endoscopic (ICD-10-PCS; 2021-04-11)
PROC: 5A1D70Z Performance of Urinary Filtration, Intermittent, Less than 6 Hours Per Day (ICD-10-PCS; 2021-04-12)
PROC: 5A1D70Z Performance of Urinary Filtration, Intermittent, Less than 6 Hours Per Day (ICD-10-PCS; 2021-04-13)
PROC: 03H Upper Arteries, Insertion (ICD-10-PCS; 2021-04-14)
PROC: B34JZZZ Ultrasonography of Left Upper Extremity Arteries (ICD-10-PCS; 2021-04-14)
PROC: 5A1D70Z Performance of Urinary Filtration, Intermittent, Less than 6 Hours Per Day (ICD-10-PCS; 2021-04-14)
PROC: 30233R1 Transfusion of Nonautologous Platelets into Peripheral Vein, Percutaneous Approach (ICD-10-PCS; 2021-04-14)
PROC: 5A1D70Z Performance of Urinary Filtration, Intermittent, Less than 6 Hours Per Day (ICD-10-PCS; 2021-04-17)
PROC: 5A1D70Z Performance of Urinary Filtration, Intermittent, Less than 6 Hours Per Day (ICD-10-PCS; 2021-04-20)
PROC: 0B113F4 Bypass Trachea to Cutaneous with Tracheostomy Device, Percutaneous Approach (ICD-10-PCS; 2021-04-21)
DX: A41.89 Other specified sepsis (principal); U07.1 COVID-19; N17.0 Acute kidney failure with tubular necrosis; J12.82 Pneumonia due to coronavirus disease 2019; R65.21 Severe sepsis with septic shock; J80 Acute respiratory distress syndrome; J45.901 Unspecified asthma with (acute) exacerbation; Z68.43 Body mass index [BMI] 50.0-59.9, adult; E87.1 Hypo-osmolality and hyponatremia; K50.90 Crohn's disease, unspecified, without complications; E66.01 Morbid (severe) obesity due to excess calories; K08.89 Other specified disorders of teeth and supporting structures; E87.5 Hyperkalemia; R13.12 Dysphagia, oropharyngeal phase; D69.6 Thrombocytopenia, unspecified
CPT/HCPCS: 36415; 36430; 36600; 36620; 70450; 71045; 74018; 76770; 80048; 80053; 80074; 80202; 81001; 82140; 82565; 82570; 82728; 82803; 82805; 82947; 82962; 83036; 83615; 83735; 84100; 84132; 84145; 84300; 84478; 84520; 84703; 85007; 85014; 85018; 85025; 85027; 85045; 85379; 85384; 85610; 85730; 86022; 86038; 86140; 86850; 86870; 86880; 86900; 86901; 86920; 86922; 87040; 87070; 87076; 87086; 87103; 87116; 87186; 87205; 93005; 93306; 93970; 94002; 94003; 94640; 94644; G0378; J2354; J3490; J7030; Q0162; Q9967; J0171; J0330; J0360; J0456; J0461; J0610; J0690; J0692; J0696; J1100; J1170; J1200; J1644; J1720; J1815; J1956; J2060; J2185; J2248; J2250; J2370; J2405; J2704; J2765; J2920; J2930; J3010; J3262; J3370; J3475; J7040; J7050; J7070; J7512; P9016; P9035; P9045; P9047; U0003